=== PATIENT | male | born 1945 | race Caucasian/White ===

== ENCOUNTER 2023-11-28 16:46 | Emergency (ER) | payer MEDICARE, SELFPAY ==
[2023-11-28] VITALS (10 sets, daily range): BP systolic 130–153; BP diastolic 54–82; PULSE 46–61; RESP 17–23; TEMP 36.7; O2SAT 94–98
--- NOTE | ~2023-11-28 | CT_ITS ---
EXAMINATION: CT brain wo con DATE: 11/28/2023 18:02 INDICATION: trauma . TECHNIQUE: Computed tomography (CT) of the head was performed without intravenous contrast. The mA wa s adjusted according to patient size. Iterative reconstruction technique was employed. The dose-lengt h product was 681.00 mGy-cm. COMPARISON: None. FINDINGS: No acute intracranial hemorrhage or extra-axial fluid collection. No hydrocephalus, mass, or herniation. No acute ischemic infarct. Unremarkable dural venous sinus attenuation. No acute osseous abnormality. Mild ethmoid mucosal thickening, small retention cyst/polyp in the posterior right ethmoid sinus, the remaining aerated spaces are clear. Moderate atrophy and chronic white matter change. Atherosclerotic intracranial calcification. 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 Left frontal encephalomalacia. IMPRESSION: No acute intracranial process. Reviewed, dictated and finalized at location K.
--- NOTE | ~2023-11-28 | CT_ITS ---
EXAMINATION: CT cervical spine wo con DATE: 11/28/2023 18:02 INDICATION: trauma TECHNIQUE: Computed tomography (CT) of the cervical spine was performed without intravenous contrast. Automated exposure control and iterative reconstruction technique were employed. The dose-length pro duct was 681.00 mGy-cm. COMPARISON: None. FINDINGS: Vertebral Body Alignment: Intact. Craniocervical and atlantoaxial alignment: Moderate degenerative change. Alignment intact. Osseous structures/fracture: No evidence of a lytic or blastic process in the visualized spine. No e vidence of acute fracture. Cervical soft tissues: The paraspinal soft tissues planes are maintained. Degenerative changes: Multilevel moderate degenerative disc disease and facet arthropathy. Severe lef t neural foraminal narrowing at C5-6 secondary to degenerative disc, uncovertebral joint, and facet c hange. No severe central canal narrowing. IMPRESSION: No acute fracture or traumatic malalignment in the cervical spine. Reviewed, dictated and finalized at location K.
--- NOTE | ~2023-11-28 | XR_ITS ---
EXAMINATION: XR chest 2V Exam Date/Time: 11/28/2023 17:17 CDT HISTORY: congestion, sob Comparison: None. RESULT: Lines, tubes, and devices: None. Lungs and pleura: Mild diffuse reticular opacities, indistinct vessels, and mild cuffing. Minimal st reaky bibasilar atelectasis/scar. Cardiomediastinal silhouette: Stable. Other: No acute osseous or upper abdominal finding. IMPRESSION: Pulmonary opacities may represent mild interstitial edema versus respiratory bronchiolitis. Reviewed, dictated and finalized at location K. IMPRESSION: Pulmonary opacities may represent mild interstitial edema versus respiratory br onchiolitis.
--- NOTE | ~2023-11-28 | CT_ITS ---
EXAMINATION: CT chst ab pel anca marie w DATE: 11/28/2023 22:34 INDICATION: Trauma. Fall. TECHNIQUE: Computed tomography (CT) of the chest, abdomen, pelvis, thoracic spine and lumber spine wa s performed with 100 mL Omnipaque-350 intravenous contrast. Automated exposure control and iterative reconstruction technique were employed. The dose-length product was 1547.82 mGy-cm. COMPARISON: None FINDINGS: CHEST: No thoracic aortic injury. Moderate atherosclerotic calcified and noncalcified aortic plaque. No mediastinal hematoma. No pericardial effusion. Heavy coronary artery calcification. No acute lung injury. No pleural effusion or pneumothorax. ABDOMEN/PELVIS: No solid organ injury. Bilateral renal cortical thinning and scarring. Simple left lower pole cyst. N onobstructing punctate renal calcifications. No evidence of bowel or mesenteric injury. Diverticulosis without vasculitis. No free fluid or free air. No retroperitoneal hematoma. Pelvic contents are atraumatic. Prostatomegaly. MUSCULOSKELETAL (excluding spine): Portions of the left abdominal wall soft tissues are excluded from the [id number]-ykpo. No acute osseou s fracture. Possible fracture of the left lateral ninth costochondral cartilage. Small uncomplicated fat-containing umbilical and left inguinal hernias. THORACIC SPINE: Thoracic scoliosis. No fracture or traumatic malalignment of the thoracic spine. No severe central ca nal or neural foraminal narrowing. Exaggerated thoracic kyphosis. Multilevel degenerative disc diseas e. Multilevel bridging anterior osteophytes. LUMBAR SPINE: No fracture or traumatic malalignment of the lumbar spine. No severe central canal or neural foramina l narrowing. Multilevel degenerative disc disease and facet arthropathy. IMPRESSION: Possible fracture of the left lateral ninth costochondral cartilage, correlate for pain/tenderness. Otherwise, no acute process detected in the chest, abdomen, pelvis, thoracic spine, or lumbar spine. Reviewed, dictated and finalized at location K. IMPRESSION: Possible fracture of the left lateral ninth costochondral cartilage, correlate for pain/tenderness. Otherwise, no acute process detected in the chest, abdomen, pelvis, thoracic sp ine, or lumbar spine.
--- NOTE | ~2023-11-28 | XR_ITS ---
EXAM: XR pelvis 1-2V DATE: 11/28/2023 17:52 HISTORY: fall . COMPARISON: None available. FINDINGS: Normal mineralization. No fracture or dislocation. No lytic or blastic lesion. Lumbar dege nerative disc disease. Mild bilateral hip osteoarthritis. No erosion or periosteal change. Pelvic phl eboliths. Atherosclerotic calcification. IMPRESSION: No acute osseous finding in the pelvis. Reviewed, dictated and finalized at location K.
--- NOTE | 2023-11-28 17:01 | ECG_ITS ---
SEE SCANNED COPY FOR CONFIRMED REPORT MTDD
[2023-11-28 17:18] LABS: Basophils Absolute Auto 0.1 K/mm3 (0.0-0.1); Basophils Percent Auto 1.4 % (0.2-1.2); Eosinophils Absolute Auto 0.3 K/mm3 (0-0.3); Hemoglobin 12.9 g/dL (14.0-18.0); Immature Granulocyte Absolute 0.04 K/mm3 (0.00-0.031); Immature Granulocyte Percent A 0.4 % (0-0.5); Lymphocytes Absolute Auto 0.83 K/mm3 (0.9-3.2); Lymphocytes Percent Auto 9.2 % (18.3-44.2); Mean Corpuscular Volume 76.8 fl (80-100); Mean Platelet Volume 10.5 fl (7.4-10.4); Monocytes Absolute Auto 1.1 K/mm3 (0.1-0.6); Monocytes Percent Auto 11.7 % (2.6-8.5); Neutrophils Absolute Auto 6.7 K/mm3 (1.3-6.7); Neutrophils Percent Auto 74.3 % (45.5-73.1); Platelet Count Result 204 k/mm3 (150-375); Red Cell Distribution Width 18.7 % (11.5-14.5)
[2023-11-28 17:33] LABS: Alanine Aminotransferase 15 U/L (6-50); Albumin Level 4.1 g/dL (3.5-5.1); Alkaline Phosphatase 86 U/L (38-126); Anion Gap 8 mmol/L (4-12); Aspartate Amino Transferase 18 U/L (17-59); Bilirubin,Total 0.5 mg/dL (0.2-1.3); Blood Urea Nitrogen 33 mg/dL (9-20); Calcium 8.4 mg/dL (8.4-10.2); Carbon Dioxide 22 mmol/L (22-30); Chloride 109 mmol/L (98-107); Estimated CRCL calculation 41 ml/min; Estimated Glomerular Filt Rate 45; Glucose 127 mg/dL (65-110); Potassium 4.2 mmol/L (3.4-5.0); Sodium 139 mmol/L (137-145)
--- NOTE | 2023-11-28 17:57 | ED.FALL ---
HPI - Fall General Chief Complaint: Fall Stated Complaint: fall Time Seen by Provider: 11/28/23 17:07 History of Present Illness HPI Narrative: Patient is a 78-year-old male with history of dementia here after a fall. The family notes that he has been having some nasal congestion over the last 3 days. Yesterday and today he had a couple episodes of urinary incontinence which is abnormal for him. They noted some increased shortness of breath over the last couple of days as well. Today he was up trying to ambulate back from the bathroom when he lost his balance and fell backwards hitting his head on the bathroom door which made a hole in the door. EMS was called he was brought into the emergency department for further evaluation. Patient currently complaining of some mid back pain but otherwise has no complaints. Related Data Allergies Allergy/AdvReac Type Severity Reaction Status Date / Time ciprofloxacin Allergy Rash Verified 11/28/23 17:00 Review of Systems Review of Systems: All systems reviewed & are unremarkable except as noted in HPI and below Exam Narrative: GENERAL: Well-appearing, well-nourished, and in no acute distress. HEAD: Normocephalic, atraumatic. No obvious abrasion or laceration. EYES: PERRLA and EOMI. ENT: Nares clear. Mucous membranes moist. NECK: Supple. CHEST: Clear to auscultation. No respiratory distress. HEART: Regular rate and rhythm. Normal peripheral pulses. ABDOMEN: Soft, nontender, nondistended. Bilateral CVA tenderness EXTREMITIES: Normal range of motion. No edema. Midline thoracic and lumbar tenderness with no bony step-offs appreciated. Paraspinal tenderness present. SKIN: Warm, dry, no rash. NEURO: No focal deficits. Alert and oriented x2. PSYCH: Normal mood and affect. Course Course Emergency Course: Chart review performed. Patient here via EMS. He has reportedly been congested for a few days and has had labored breathing. He has also been incontinent twice. He was brought into the ER after falling and hitting his head. Triage vitals show bradycardia, otherwise normal. Patient seen evaluated, nontoxic appearing. He is here with some respiratory symptoms as well as urinary continence and a fall today. 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 Son at bedside helps with history. He appears to be in no respiratory distress with normal vital signs at this time. Differentials include viral respiratory illness, pneumonia, UTI. Will additionally do imaging to evaluate for possible traumatic injury. Patient and family agreeable to workup and plan. CBC unremarkable, he has a creatinine of 1.5, we have no priors in our system for comparison. He did look clinically dry on exam, IVF ordered. Troponin normal. UA negative for UTI, does have some hematuria. CXR shows pulmonary opacities consistent with mild interstitial edema vs respiratory bronchiolitis. Head CT negative. XR pelvis negative. CT cervical spine negative. CT chest, abdomen pelvis and thoracolumbar ordered. Patient not sitting still during CT, will attempt to medicate and send back down. Patient sent back down after zyprexa, continues to have difficulty sitting still, will give ativan. CT shows possible fracture of the left lateral 9th costochondral cartilage, correlate for pain and tenderness. He is mildly tender in this area. Suspect this is likely the cause. No solid organ injury appreciated on CT. Will work on discharge. The results of pertinent diagnostic studies and exam findings were discussed. The patient?s provisional diagnosis and plan of care were discussed with the patient and present family. The patient and/or present family expressed understanding of the diagnosis and plan. The nurse was instructed to provide written instructions and appropriate follow-up information. The patient understands their need and responsibility to obtain additional follow-up as instructed. The risks of medications administered and prescr
[2023-11-28 18:10] LABS: Troponin I < 0.012 ng/mL (0.000-0.034)
[2023-11-28 18:46] LABS: Appearance Urine Clear (Clear); Bacteria Urine None Seen /hpf; Bilirubin Urine Negative (Negative); Blood Urine 1+ (Negative); Color Urine Yellow (Yellow); Glucose Urine UA Negative (Negative); Ketones Urine Negative (Negative); Leukocyte Esterase Ur Negative LEU/UL (Negative); Need Manual Microscopic Reviewed; Nitrate Urine Negative (Negative); Non Pathogenic Casts 0-2; Protein Urine 1+ mg/dL (Negative); RBC Urine 21-50 /hpf (0-2); Specific Grav Ur 1.025 (1.001-1.035); Squamous Epithelial Cell Urine None Seen /hpf (Few); Urobilinogen Urine 0.2 mg/dL (<2.0); WBC Urine 0-5 /hpf (0-3); pH Urine 5.5 (5.0-9.0)
[2023-11-28 18:55] LABS: Add Urine Microscopic? YES
[2023-11-28] MEDS: LACTATED RINGERS 1,000 ML 999 ML IV CONT (19:06)
[2023-11-28 19:25] LABS: Influenza A QL RT-PCR Negative (Negative); Influenza B QL RT-PCR Negative (Negative); RSV RNA, RT-PCR Negative (Negative); SARS-CoV-2 RNA PCR Negative (Negative)
--- NOTE | 2023-11-28 19:35 | PC.NURSE ---
This RN assumed care of pt after receiving report from SUE Kohler @ [id number].
--- NOTE | 2023-11-28 19:48 | PC.NURSE ---
Pt received straight cath by patricia Del Castillo prior to this RN's arrival. Order placed just now.
[2023-11-28 20:56] LABS: Troponin I < 0.012 ng/mL (0.000-0.034)
--- NOTE | 2023-11-28 21:00 | PC.NURSE ---
Patient uncooperative during CT. Pt was asked multiple times to lie down during scan. Pt refused and continuously tried to get up from table. ED charge notified.
[2023-11-28] MEDS: OLANZapine DISPERTAB 5 MG PO (21:38)
[2023-11-28] MEDS: LORazepam INJ (*CRX) 2 MG/ML VIAL 1 MG IV PUSH (22:08)
--- NOTE | 2023-11-28 22:08 | PC.NURSE ---
Unable to scan ativan d/t pt in ct at time of admin. Pt was uncooperative with scan and needed additional medication to obtain scan.
== END 2023-11-28 23:25 | disposition home or self-care (01) ==
PROVIDERS: Emergency Medicine; Emergency Provider Student in an Organized Health Care Education/Training Program
DX: S20.212A Contusion of left front wall of thorax, initial encounter (principal); J06.9 Acute upper respiratory infection, unspecified; Z20.822 Contact with and (suspected) exposure to COVID-19; R91.8 Other nonspecific abnormal finding of lung field; G20.C Parkinsonism, unspecified; F02.80 Dementia in other diseases classified elsewhere, unspecified severity, without behavioral disturbance, psychotic disturbance, mood disturbance, and anxiety; W01.198A Fall on same level from slipping, tripping and stumbling with subsequent striking against other object, initial encounter
CPT/HCPCS: 36415; 70450; 71046; 71260; 72125; 72129; 72132; 72170; 74177; 80053; 81001; 84484; 85025; 87637; 93005; 96361; 96374; 99284; A9270; J2060; J7120; Q9967

== ENCOUNTER 2024-04-12 21:18 | Emergency (ER) | payer MEDICARE, SELFPAY ==
--- NOTE | ~2024-04-12 | XR_ITS ---
XR forearm LT 2V Ordering provider: Araseli Velasco PA-C History: . fall, area of bruising . Comparison: None. FINDINGS: BONES: No acute fracture or dislocation. JOINT SPACES: Normal. Osteoarthritic changes in the wrist area is noted. SOFT TISSUES: Soft tissue swelling is seen in the area of the proximal ulna suggestive of a hematoma. Clinical correlation advised. IMPRESSION: No acute osseous abnormality left forearm. Reviewed, dictated and finalized at location A.
--- NOTE | ~2024-04-12 | CT_ITS ---
CT brain wo con Ordering provider: Araseli Velasco PA-C History: 78 years Male with . fall, HI, on xarelto . Comparison: None. Technique: CT of the head without contrast. Radiation reduction technique utilized The dose-length product was 378.33 mGy-cm. FINDINGS: BRAIN PARENCHYMA AND CSF SPACES: Mild leukoaraiosis and diffuse cortical atrophy. Mild atheromatous d isease. 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 No midline shift, mass effect or hemorrhage. The brain parenchyma and CSF spaces are otherwise normal. VISUALIZED PARANASAL SINUSES: Well aerated. MASTOIDS: Well aerated. BONES: The bones appear intact. SOFT TISSUES: Visualized nasopharynx is normal. Superficial soft tissues are normal. IMPRESSION: No acute intracranial findings. Reviewed, dictated and finalized at location A.
--- NOTE | ~2024-04-12 | CT_ITS ---
CT thoracic lumbar wo con Ordering provider: Araseli Velasco PA-C History: . fall, pain . Comparison: None. Technique: CT thoracic and lumbar spine without contrast. Automated exposure control and iterative r econstruction technique were employed. The dose-length product was 1696.70 mGy-cm. FINDINGS: VERTEBRAE: Fracture of the right transverse process of L3 and L4 which is most likely chronic. Normal height and alignment. No subluxation or visible acute fracture. Degenerative changes of the spine. DISC SPACES: Multilevel narrowing in the mid and lower thoracic area. Narrowing of the disc spaces L1-L2, L2-3 and L3-L4.. PARASPINOUS SOFT TISSUES: Normal. Bilateral sacroiliitis. IMPRESSION: No definite acute osseous abnormality of the thoracic and lumbar spine. Fractures in the right transverse processes of L3 and L4 which is most likely chronic. Clinical corre lation for tenderness advised. Reviewed, dictated and finalized at location A. IMPRESSION: No definite acute osseous abnormality of the thoracic and lumbar spine. Fractures in the right transverse processes of L3 and L4 which is most likely c hronic. Clinical correlation for tenderness advised.
--- NOTE | ~2024-04-12 | CT_ITS ---
CT cervical spine wo con Ordering provider: Araseli Velasco PA-C History: . fall, hi . Comparison: None. Technique: CT of the cervical spine was performed without contrast. Sagittal and coronal reformatted images were also obtained and reviewed. Automated exposure control and iterative reconstruction mone hnique were employed. The dose-length product was 262.70 mGy-cm. FINDINGS: VERTEBRAE: No subluxation or acute fracture. The occipital condyles are intact. Slight loss of heigh t anteriorly seen in T1 may be acute or chronic. If clinically warranted MRI is advised.. DISC SPACES: Narrowing of the disc C3-C4, C4-C5, C5-C6 and C6-C7. Multilevel facet joint disease. Mul tilevel uncovertebral joint osteoarthritic changes. PARASPINOUS SOFT TISSUES: Normal. IMPRESSION: No definite acute osseous abnormality cervical spine. Reviewed, dictated and finalized at location A.
[2024-04-12 21:21] VITALS: BP 179/80; PULSE 35; RESP 16; TEMP 36.4; O2SAT 99
--- NOTE | 2024-04-12 21:49 | ECG_ITS ---
Test Date: 2024-04-12 22:01:04 Measurements Intervals Thornton Rate: 56 P: 0 MA: 0 QRS: -39 QRSD: 116 T: 78 QT: 447 QTc: 433 Interpretive Statements ATRIAL FIBRILLATION WITH SLOW VENTRICULAR RESPONSE WITH ABERRANT CONDUCTION OR VENTRICULAR PREMATURE COMPLEXES MARKED LEFT AXIS DEVIATION [QRS AXIS < -30] INCOMPLETE RIGHT BUNDLE BRANCH BLOCK [90+ ms QRS DURATION, TERMINAL R IN V1/V2, 40+ ms S IN I/aVL/V4/V5/V6] MINIMAL VOLTAGE CRITERIA FOR LVH, CONSIDER NORMAL VARIANT [MEETS CRITERIA IN ONE OF: R(aVL), S(V1), R(V5), R(V5/V6)+S(V1)] POSSIBLE ANTERIOR MYOCARDIAL INFARCTION , OF INDETERMINATE AGE [30 ms Q WAVE IN V3/V4, OR R < 0.2 mV IN V4] No previous ECG available for comparison Electronically Signed On 04-13-2024 08:31:40 CDT by Brian Chen M.D.
[2024-04-12 21:53] VITALS: BP 150/75; PULSE 55; RESP 13; TEMP 36.6; O2SAT 98
[2024-04-12] MEDS: ACETAMINOPHEN 500 MG TABLET 1000 MG PO (22:41)
[2024-04-12] MEDS: LIDOCAINE 5% PATCH 1 PATCH TRANSDERM (22:41)
--- NOTE | 2024-04-13 00:02 | ED_ITS ---
HPI - Fall General Chief Complaint: Fall Stated Complaint: fall, back pain Time Seen by Provider: 04/12/24 21:48 Source: patient and family Mode of arrival: ambulatory Limitations: dementia History of Present Illness HPI Narrative: Patient is a 78-year-old male, with past medical history of parkinsonian disease dementia, bradycardia, AFib on Xarelto, who presents to the ED with his son with report of a fall. Son assisted in providing information. Patient was in his bedroom around 1230pm today (Monday) when he lost his balance using his walker after looking up at the TV. He then fell backwards landing on his buttocks. Son showed me a video of this. Patient did his head. Denied LOC. Denies feeling dizzy or lightheaded, states he just lost his balance. Complains of pain to his head, midback, left forearm. Denies feeling dizzy/LH currently. Denies vision changes, nausea, numbness, bowel or bladder incontinence. Related Data Allergies Allergy/AdvReac Type Severity Reaction Status Date / Time ciprofloxacin Allergy Rash Verified 11/28/23 17:00 Review of Systems Review of Systems: All systems reviewed & are unremarkable except as noted in HPI. All systems reviewed & are unremarkable except as noted in HPI and below Exam Narrative: GENERAL: Elderly, well-nourished, non-toxic, in no acute distress. HEAD: Normocephalic, atraumatic. RESPIRATORY: Airway patent, respirations nonlabored. Clear to auscultation bilaterally, no rales, rhonchi, wheezing. CARDIOVASCULAR: Regular rate and rhythm without murmurs, rubs, or gallops. Peripheral pulses are intact. ABDOMINAL: Soft, nontender, nondistended. Normoactive BS. MUSCULOSKELETAL: Moves all extremities. No gross deformities. Hematoma to L lateral proximal forearm with mild bruising present. Focal TTP. No significant bony tenderness throughout L arm/elbow/wrist. TTP in mid thoracic region, midline spine and paraspinal musculature. No palpable bony deformities or step offs. No significant tenderness throughout cervical or lumbar midline spine. SKIN: Warm, dry, normal color. Small skin tear to L hand. NEURO: Alert, intermittent confusion. Speech clear. Cranial nerves II-XII luana ssly intact. No ataxic movements. PSYCHIATRIC: Appropriate mood and affect. Normal interaction. Course Vital Signs Vital signs: Vital Signs Temperature 97.6 F 04/12/24 21:21 Pulse Rate 35 L 04/12/24 21:21 Respiratory Rate 16 04/12/24 21:21 Blood Pressure 179/80 H 04/12/24 21:21 Pulse Oximetry 99 04/12/24 21:21 Oxygen Delivery Room Air 04/12/24 21:21 Temperature 97.9 F 04/12/24 21:53 Pulse Rate 54 L 04/13/24 00:44 Respiratory Rate 18 04/13/24 00:44 Blood Pressure 146/94 H 04/13/24 00:44 Pulse Oximetry 98 04/13/24 00:44 Oxygen Delivery Room Air 04/12/24 21:53 MDM - Fall MDM Narrative Medical decision making narrative: Patient presented to ED status post ground level mechanical fall that occurred this afternoon. Son showed me a video of this fall occurring. No prodromal symptoms prior to fall. Complaining of pain to left forearm, thoracic region. HI, no LOC. He is Xarelto. Neurovascularly intact. No focal deficits. No evidence of cord compression or cauda equina. No gross deformities. Son does report patient has been at his neurologic baseline throughout the day. CT brain and cervical spine without acute acute traumatic findings. CT scan of thoracic/lumbar spine was obtained and without obvious acute abnormality. Did show possible chronic fractures of transverse process of L3 and L4. Recommended to correlate for point tenderness. Patient really does not have any tenderness throughout lumbar spine. I have low suspicion for acute fracture in this region. X-ray of L forearm is also without traumatic findings. Does show hematoma. Enrrique wrap applied. Patient and son updated on imaging results. Will discharge patient with short course of pain medicine for home use as well as lidocaine patches. Advised to continue Tylenol. Recommended close follow-up with PCP. Given strict return precautions. Patient and son in agreement plan. Son feels comfortable taking patient home. D/C in stable condition. Patient was noted to be bradycardic here. EKG was obtained and w/o concerning ST changes or evidence of heart block. Son does report this is a chronic known issue. Appears similar to patient's previous records in the ED. Patient is no longer on beta blockers. Medical Records Attestation: I reviewed the patient's medical records. Imaging Data Attestation: I personally reviewed and interpreted this imaging study as follows: Radiologist's impression: ITS Impressions Head CT 04/12/24 22:47 IMPRESSION: No acute intracranial findings. Cervical Spine CT 04/12/24 22:55 IMPRESSION: No definite acute osseous abnormality cervical spine. Thoracic/Lumbar Spine CT 04/12/24 23:04 IMPRESSION: No definite acute osseous abnormality of the thoracic and lumbar spine. Fractures in the right transverse processes of L3 and L4 which is most likely chronic. Clinical correlation for tenderness advised. Forearm X-Ray 04/12/24 23:37 IMPRESSION: No acute osseous abnormality left forearm. ECG Data EKG #1: Attestation: I personally reviewed and interpreted this ECG as follows: ECG completion date: 04/12/24 ECG completion time: 22:01 EKG Interpretation: bradycardia (56), atrial fibrillation, PVCs, non- specific ST changes and RBBB (incomplete) Discharge Plan Discharge Clinical Impression: Fall from ground level, Strain of thoracic back region Contusion of left forearm Qualifiers: Encounter type: initial encounter Qualified Code(s): S50.12XA - Contusion of left forearm, initial encounter Closed head injury Qualifiers: Encounter type: initial encounter Qualified Code(s): S09.90XA - Unspecified injury of head, initial encounter Patient Disposition: Home, Self-Care Condition: Stable Instructions: Antibiotic Form, Head Injury (ED), Thoracic Back Strain (ED) Additional Instructions: Continue Tylenol as needed for pain. You may use ice/heat, lidocaine patches to area of pain. Utilize tramadol as needed for more severe pain. Recommend ice and enrrique bandage to left forearm to help with swelling. Follow-up with your primary care doctor for further evaluation. Return to the ED if patient experiences worsening or severe pain, recurrent injury, numbness, going to the bathroom without meaning to, unable to keep down food or drink, or any other symptoms of concern. Prescriptions: New lidocaine 5 % adhesive patch,medicated 1 patch topical DAILY Qty: 15 0RF Rx Instructions: leave on most painful area for up to 12 hrs tramadol 50 mg tablet 50 mg PO Q6H PRN (Reason: pain) Qty: 15 0RF Follow-up/Referrals: Josie,Bijal Lowry MD [Primary Care Provider] - Time of Disposition: 00:15
[2024-04-13] MEDS: traMADol HCL (*CRX) 50 MG TABLET PO (00:22)
[2024-04-13 00:44] VITALS: BP 146/94; PULSE 54; RESP 18; O2SAT 98
== END 2024-04-13 00:46 | disposition home or self-care (01) ==
PROVIDERS: Emergency Provider Physician Assistant; PCP Internal Medicine Interventional Cardiology
DX: S09.90XA Unspecified injury of head, initial encounter (principal); S29.012A Strain of muscle and tendon of back wall of thorax, initial encounter; S50.12XA Contusion of left forearm, initial encounter; G20.A1 Parkinson's disease without dyskinesia, without mention of fluctuations; F02.80 Dementia in other diseases classified elsewhere, unspecified severity, without behavioral disturbance, psychotic disturbance, mood disturbance, and anxiety; I48.91 Unspecified atrial fibrillation; Z79.01 Long term (current) use of anticoagulants; R94.31 Abnormal electrocardiogram [ECG] [EKG]; M84.48XA Pathological fracture, other site, initial encounter for fracture; W18.39XA Other fall on same level, initial encounter
CPT/HCPCS: 70450; 72125; 72128; 72131; 73090; 93005; 99284; A9270

== ENCOUNTER 2024-06-15 00:09 | Emergency (ER) | payer MEDICARE, SELFPAY ==
--- NOTE | ~2024-06-15 | CT_ITS ---
EXAMINATION: CT brain wo con DATE: 06/15/2024 04:18 INDICATION: Anticoagulated patient post fall with head injury. TECHNIQUE: Computed tomography (CT) of the head was performed without intravenous contrast. Sagittal and coronal reconstructions were performed. The mA was adjusted according to patient size. Iterative reconstruction technique was employed. The dose-length product was 681.00 mGy-cm. COMPARISON: head CT dated 04/12/2024 FINDINGS: Moderate-sized region of encephalomalacia in the left frontal lobe consistent with chronic infarct. S mall old lacunar infarcts in the right frontal lobe cruz radiata and in the left thalamus. There is additional scattered white matter hypoattenuation consistent with chronic small vessel ischemic dise ase. No acute intracranial hemorrhage, acute infarction or abnormal extra axial fluid collection. Sym metric prominence of the sulci and ventricles consistent with mild age-appropriate diffuse cerebral v olume loss. Ventricles are normal and symmetric. No mass/mass effect. Mild mucosal thickening in the bilateral ethmoid sinuses. The orbits and mastoid air cells are normal. IMPRESSION: 1. No acute intracranial process. 2. Stable appearance of age-related changes and old infarcts in the bilateral frontal lobes and right thalamus. Reviewed, dictated and finalized at location A. AL THERAPIST IMPRESSION: 1. No acute intracranial process. 2. Stable appearance of age-related changes and old infarcts in the bilateral f rontal lobes and right thalamus.
--- NOTE | ~2024-06-15 | XR_ITS ---
EXAMINATION: XR elbow LT min 3V DATE: 06/15/2024 00:35 INDICATION: Large hematoma to the left elbow post fall TECHNIQUE: Anteroposterior, two oblique and lateral views of the left elbow were obtained. COMPARISON: Left forearm radiographs dated 04/12/2024 FINDINGS: Prominent soft tissue swelling posterior to the elbow and proximal forearm. Bone alignment is normal. No fracture or joint effusion. Joint spaces are normal. Vascular calcifications along the proximal t o mid forearm. IMPRESSION: 1. No osseous abnormality. Reviewed, dictated and finalized at location A. VASCULAR IMPRESSION: 1. No osseous abnormality.
[2024-06-15 00:15] VITALS: BP 140/82; PULSE 76; RESP 16; TEMP 36.6; O2SAT 100
[2024-06-15 01:49] VITALS: BP 137/68; PULSE 48; RESP 16; O2SAT 100
--- NOTE | 2024-06-15 03:29 | ED_ITS ---
HPI - General Adult General Chief complaint: Extremity Injury, Upper Stated complaint: fall; arm pain Time Seen by Provider: 06/15/24 01:20 History of Present Illness HPI narrative: Patient is a 78-year-old male who presents to the ER after sustaining a fall at home. He reports he was walking with his walker when his pain started to fall down, which made him stumble and fall backwards. Patient has a history of Parkinson's disease and has frequent falls. He reports pain on his left elbow. Patient's son reports patient is on blood thinners due to AFib. It is unclear whether or not patient hit his head during the fall. Patient denies pain anywhere else on his body. His son reports he has a history of bradycardia, for which he is followed by Cardiology. Patient is also follow-up by a neurologist at [facility] who manages his Parkinson's disease. His son reports he had COVID in July 2022, and has had many health problems since that time, but patient is followed closely by specialists and his PCP. Patient denies headache, shortness of breath, chest pain, back pain, urinary symptoms. Related Data Allergies Allergy/AdvReac Type Severity Reaction Status Date / Time ciprofloxacin Allergy Rash Verified 06/15/24 01:49 Review of Systems Review of Systems: All systems reviewed & are unremarkable except as noted in HPI and below Exam Narrative: GENERAL: Well appearing, well-nourished, non-toxic, in no acute distress. HEAD: Normocephalic, atraumatic. NECK: Supple. No adenopathy, no masses. RESPIRATORY: Airway patent, respirations nonlabored. Clear to auscultation bilaterally, no rales, rhonchi, wheezing. CARDIOVASCULAR: bradycardia, irregular rhythm (followed closely outpatient by cardiology) without murmurs, rubs, or gallops. Peripheral pulses 2+ and equal bilaterally. ABDOMINAL: Soft, nontender, nondistended, no hepatosplenomegaly. Normoactive BS. MUSCULOSKELETAL: Moves all extremities. Strength/ROM intact without gross deformities. SKIN: Warm, dry, normal color. No rashes. Golf ball-sized hematoma on pt's L elbow with no open wound. NEURO: A&O X3. Speech clear. Cranial nerves intact. PSYCHIATRIC: Appropriate mood. Flat affect. Course Vital Signs Vital signs: Vital Signs Temperature 36.6 C 06/15/24 00:15 Pulse Rate 76 06/15/24 00:15 Respiratory Rate 16 06/15/24 00:15 Blood Pressure 140/82 06/15/24 00:15 Pulse Oximetry 100 06/15/24 00:15 Oxygen Delivery Room Air 06/15/24 00:15 Temperature 36.6 C 06/15/24 00:15 Pulse Rate 48 L 06/15/24 01:49 Respiratory Rate 16 06/15/24 01:49 Blood Pressure 137/68 06/15/24 01:49 Pulse Oximetry 100 06/15/24 01:49 Oxygen Delivery Room Air 06/15/24 00:15 Medical Decision Making MDM Narrative Medical decision making narrative: Patient is a 78-year-old male who presents to the ER after sustaining a fall at home. He reports he was walking with his walker when his pain started to fall down, which made him stumble and fall backwards. Patient has a history of Parkinson's disease and has frequent falls. He reports pain on his left elbow. Patient's son reports patient is on blood thinners due to AFib. It is unclear whether or not patient hit his head during the fall. Patient denies pain anywhere else on his body. His son reports he has a history of bradycardia, for which he is followed by Cardiology. Patient is also follow-up by a neurologist at [facility] who manages his Parkinson's disease. His son reports he had COVID in July 2022, and has had many health problems since that time, but patient is followed closely by specialists and his PCP. Patient denies headache, shortness of breath, chest pain, back pain, urinary symptoms. Labs Ordered: None necessary Imaging Ordered: CT brain, XR L elbow Results: Patient's left elbow x-ray indicated no acute abnormalities. His brain CT scan indicated no abnormalities. Diagnosis: Left elbow contusion Patient Education/Shared MDM: Patient's son is very knowledgeable about his father's care and history. He is in agreement with plan for patient to have a CT scan of his brain to to his blood thinner usage. Patient's son is very familiar with his bradycardia and does not have concerns about it contributing to this ER visit. 0445- Patient's head CT scan showed chronic microvascular ischemic disease with cerebral and cerebellar atrophy. It also showed intracranial calcified atherosclerosis and L frontal lobe encephalomalacia. Remote lacunar infarct within the R thalamus. There were no indication of a brain bleed. Results shared with patient and his son. He will be discharged home with strong advice to follow-up with his primary care doctor and specialists on Monday. Patient and his son verbalized understanding and are in agreement with plan. 0500- All questions answered. Vital signs stable at time of discharge. Differential Diagnosis Differential Diagnosis: subarachnoid hemorrhage, L elbow fracture, L elbow contusion Vital Signs Vital Signs: Vital Signs Temperature 36.6 C 06/15/24 00:15 Pulse Rate 76 06/15/24 00:15 Respiratory Rate 16 06/15/24 00:15 Blood Pressure 140/82 06/15/24 00:15 Pulse Oximetry 100 06/15/24 00:15 Oxygen Delivery Room Air 06/15/24 00:15 Temperature 36.6 C 06/15/24 00:15 Pulse Rate 48 L 06/15/24 01:49 Respiratory Rate 16 06/15/24 01:49 Blood Pressure 137/68 06/15/24 01:49 Pulse Oximetry 100 06/15/24 01:49 Oxygen Delivery Room Air 06/15/24 00:15 Discharge Plan Discharge Clinical Impression: Hematoma of left elbow Patient Disposition: Home, Self-Care Condition: Stable Instructions: Antibiotic Form, Hematoma (ED) Additional Instructions: Please return to the ER with an worsening symptoms. Follow-up with primary care provider and specialists in the next 2-3 days. Take all medications as prescribed. Patient Language: Norwegian Prescriptions: No Action lidocaine 5 % adhesive patch,medicated 1 patch topical DAILY Qty: 15 0RF Rx Instructions: leave on most painful area for up to 12 hrs tramadol 50 mg tablet 50 mg PO Q6H PRN (Reason: pain) Qty: 15 0RF Follow-up/Referrals: Josie,Bijal Lowry MD [Primary Care Provider] - Time of Disposition: 04:53
[2024-06-15 05:30] VITALS: BP 120/86; PULSE 52; RESP 16; O2SAT 98
--- OUTSIDE RECORDS SUMMARY | 2024-06-18 18:02 | XMS_ITS | Encounter Summary ---
Author Organization [facility] Address [address] [place] [address] Care Team Providers Care Telecasting Technician Name Role Phone Wesley Em MD Primary Care Provider Unavail able Reason for Referral * Home Health Care (Routine) - Closed Specialty Diagnoses / Procedures Referred By Contdayami t Referred To Contact Home Health Services Diagnoses History of CVA (cerebrovascular accident) Parkinsonian features Moderate dementia with other behavioral disturbance, unspecified dementia type (HCC) Liza Morrow MD [address] [place] [address] [facility] [address] [place] [address] Referral ID Status Reason Start Date Expiration Date V isits Requested Visits Authorized [id number] Closed Specialty Services Required 04/30/2024 04/30/[phone] Encounter Details Date Type Department Care Team (Late st Contact Info) Description 04/30/2024 Orders Only [facility] [address] [place] [phone] Liza Morrow MD [address] [place] [address] History of CVA (cerebrovascular accident) ; Parkinsonian features; Moderate dementia with other behavioral disturbance, unspecified dementia type (HCC) Social History Tobacco Use Types Packs/Day Years Used Date Smoking Tobacco: Former Smokeless Tobacco: Never Alcohol Use Standard Drinks/Week Comments Not Asked 0 (1 standard drink = 0.6 oz pur e alcohol) Sex and Gender Information Value Date Recorded Sex Assigned at Not on file Gender Identity Not on file Sexual Orientation Not on file documented as of this encounter Plan of Treatment Upcoming Encounters Date Type Department Care Team (Late st Contact Info) Description 07/11/2024 10:30 AM CLERICAL SPECIALIST Office Visit [facility] [address] [place] [phone] Liza Morrow MD [address] [place] [phone] 07/16/2024 10:00 AM CLERICAL SPECIALIST Office Visit [facility] [address] [place] [phone] Shahriar Young MD [address] [place] [address] [place] [phone] Scheduled Referrals Name Type Priority Associated Diagnoses Orde r Schedule AMB REFERRAL TO HOME HEALTH CARE Outpatient Referral Routine History of CVA (cerebrovascular accident) Parkinsonian features Moderate dementia with other behavioral disturbance, unspecified dementia type (HCC) Ordered: 04/30/2024 documented as of this encounter Visit Diagnoses Diagnosis History of CVA (cerebrovascular accident)- Primary Transient ischemic attack (TIA), and cerebral infarction without residual deficits Parkinsonian features Abnormal involuntary movements Moderate dementia with other behavioral disturbance, unspecified dementia type (HCC) documented in this encounter Care Teams Telecasting Technician Relationship Specialty Start Date End Date Wesley Em MD PCP - General Internal Medicine 09/20/12 documented as of this encounter
--- OUTSIDE RECORDS SUMMARY | 2024-06-18 18:02 | XMS_ITS | Encounter Summary ---
Author Organization [facility] Address [address] [place] [address] Care Team Providers Care Landscaping Crew Leader Name Role Phone Wesley Em MD Primary Care Provider Unavail able Reason for Visit * Reason Comments Follow-up 6 mo Encounter Details Date Type Department Care Team (Late st Contact Info) Description 05/24/2016 3:00 PM WEB CONTENT WRITER Office Visit [facility] [employer] [facility] [address] [facility] [address] [place] [address] [place] [phone] [facility] [address] [place], [place] [id number] CAD in [place] artery (Primary Dx); Dyslipidemia; Essential hypertension, benign; Stented coronary artery Social History Tobacco Use Types Packs/Day Years Used Date Smoking Tobacco: Former Alcohol Use Standard Drinks/Week Comments Not Asked 0 (1 standard drink = 0.6 oz pur e alcohol) Sex and Gender Information Value Date Recorded Sex Assigned at Not on file Gender Identity Not on file Sexual Orientation Not on file documented as of this encounter Last Filed Vital Signs Vital Sign Reading Time Taken Comments Blood Pressure 154/84 05/24/2016 3:07 PM WEB CONTENT WRITER Pulse 75 05/24/2016 3:07 PM WEB CONTENT WRITER Temperature - - Respiratory Rate 15 05/24/2016 3:07 PM WEB CONTENT WRITER Oxygen Saturation - - Inhaled Oxygen Concentration - - Weight 88.5 kg (195 lb 3.2 oz) 05/24/2016 3:07 P M WEB CONTENT WRITER Height 175.3 cm (5' 9 ) 05/24/2016 3:07 PM WEB CONTENT WRITER Body Mass Index 28.83 05/24/2016 3:07 PM WEB CONTENT WRITER documented in this encounter Progress Notes * Garth Millan MD - 05/24/2016 3:31 PM CST Cardiology Follow up Visit PCP: Wesley Em MD SUBJECTIVE: [place] comes today for follow up visit. Current diagnoses include hypertension, hyperlipidemia, 2-V CAD, PCI to CFX 08/15 for abnormal stress test, staged roto/stent RCA 09/12, DM, and Polycythemia Vera. Since last visit he has done well without angina, dyspnea. He is physically active, able to carry out his daily activities without difficulty. Family and Social History/Risk Factors: Premature CAD: Yes Records reviewed: Current medications, allergies, and Problem List reviewed and updated as needed Tobacco Use: Past Medication side effects noted: none. REVIEW OF SYSTEMS: General ROS: negative Psychological ROS: negative ENT ROS: negative Hematological and Lymphatic ROS: negative Endocrine ROS: negative Respiratory ROS: no cough, shortness of breath, or wheezing Cardiovascular ROS: no chest pain or dyspnea on exertion Gastrointestinal ROS: no abdominal pain, change in bowel habits, or black or bloody stools Musculoskeletal ROS: negative Neurological ROS: no TIA or stroke symptoms Dermatological ROS: negative PHYSICAL EXAM: BP 154/84 (BP SITE: LEFT ARM, BP POSITION: SITTING, BP CUFF SIZE: Large Adult) Pulse 75 Resp 15 Wt 88.5 kg (195 lb 3.2 oz) BMI 28.83 kg/m2 General appearance: alert, cooperative, no distress Head: normocephalic, without trauma Eyes: sclera and conjunctiva clear, EOMI and PERRLA, lids normal Neck: range of motion is intact, no masses, thyroid not enlarged, no adenopathy Lungs: breath sounds normal and symmetric; no rales or wheezes Heart: regular rhythm, normal S1 and S2, without murmurs, gallops or rubs Abdomen: soft without mass, non-tender, with normal bowel sounds Extremities: no clubbing, cyanosis or edema Circulation: Carotid, femoral and pedal pulses are intact and symmetrical, aorta is not enlarged, no carotid bruits Skin: no rashes or other abnormalities are noted Neurologic: mental status normal; alert and oriented X 3; cranial nerves II - XII are grossly intact CARDIOGRAPHICS: Stress test 11/15: Conclusion: Mild fixed thinning posterior inferior wall. No reversible ischemia. No other perfusion abnormality identified. Left ventricular ejection fraction 48%. There is mild global hypokinesis most marked at the posterior wall. PCI 09/12: CONCLUSION: 1. Successful percutaneous coronary intervention, rotational atherectomy, and implantation of a 3.0 x 26 mm Resolute drug-eluting stent in the proximal right coronary artery. 2. Successful percutaneous vascular access closure. No results for input(s): CHOL, TRIG, HDL, LDLCALC in the last 24902 hours. ASSESSMENT/PLAN: 1. CAD: doing well post PCI. Will continue current regimen. 2. Hypertension: usually well controlled 3. Dyslipidemia: followed by Dr Em. 4. DM 5. Polycythemia Vera. 6. Follow up in 6 months. Garth Millan MD 05/24/2016 3:31 PM CONTENT WRITER documented in this encounter Plan of Treatment Upcoming Encounters Date Type Department Care Team (Late st Contact Info) Description 07/11/2024 10:30 AM WEB CONTENT WRITER Office Visit [facility] [address] [place] [phone] Liza Morrow MD [address] [place] [phone] 07/16/2024 10:00 AM WEB CONTENT WRITER Office Visit [facility] [address] [place] [phone] Shahriar Young MD [address] [place] [address] [place] [phone] documented as of this encounter Visit Diagnoses Diagnosis CAD in [place] artery- Primary Coronary atherosclerosis of [place] coronary artery Dyslipidemia Other and unspecified hyperlipidemia Essential hypertension, benign Stented coronary artery Postsurgical percutaneous transluminal coronary angioplasty status documented in this encounter Care Teams Landscaping Crew Leader Relationship Specialty Start Date End Date Wesley Em MD PCP - General Internal Medicine 09/20/12 documented as of this encounter
--- OUTSIDE RECORDS SUMMARY | 2024-06-18 18:02 | XMS_ITS | Encounter Summary ---
Author Organization [facility] Address [address] [address] Care Team Providers Care Peanut Cleaner Name Role Phone Wesley Em MD Primary Care Provider Unavail able Reason for Visit * Reason Comments Follow-up 6 month Coronary Artery Disease Encounter Details Date Type Department Care Team (Late st Contact Info) Description 05/30/2017 1:30 PM BUSINESS DEVELOPMENT 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 Office Visit [facility] [address] [facility] [address] [place] [address] Fariba Koenig, LINEN TECH-CONSULTANT IN ERGONOMICS AND SAFETY [address] [facility] [address] [place] [address] CAD in ewiiaapaayp artery (Primary Dx); Essential hypertension, benign; Dyslipidemia Social History Tobacco Use Types Packs/Day Years [...] Sign Reading Time Taken Comments Blood Pressure 134/67 05/30/2017 1:39 PM BUSINESS DEVELOPMENT 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 Pulse 68 05/30/2017 1:39 PM BUSINESS DEVELOPMENT 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 Temperature - - Respiratory Rate 16 05/30/2017 1:39 PM BUSINESS DEVELOPMENT 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 Oxygen Saturation - - Inhaled Oxygen Concentration - - Weight 86.2 kg (190 lb) 05/30/2017 1:39 PM BUSINESS DEVELOPMENT 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 Height 175.3 cm (5' 9 ) 05/30/2017 1:39 PM BUSINESS DEVELOPMENT 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 Body Mass Index 28.06 05/30/2017 1:39 PM BUSINESS DEVELOPMENT 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 documented in this encounter Patient Instructions * Patient Instructions* KoenigFariba APRN-CNP - 05/30/2017 2:04 PM BUSINESS DEVELOPMENT 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 Continue current medical therapy Increase activity level Follow a low cholesterol, low sodium, small portion diet NESS DEVELOPMENT 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 documented in this encounter Progress Notes * Fariba Koenig APRN-CNP - 05/30/2017 1:55 PM CST [facility] Heart Cardiology Progress Note Patient's Primary Care Physician: Wesley Em MD Primary Registered Route Associate: Garth Millan MD, [facility] Chief Complaint Patient presents with ??? Follow-up 6 month ??? Coronary Artery Disease History of Present Illness: Mr. Zuniga is a pleasant 71 year old gentleman who presents to the clinic this afternoon for 6 month follow up. His past medical history significant for; hypertension, hyperlipidemia, 2-V CAD, PCI to CFX 08/15 for abnormal stress test, staged roto/stent RCA 09/12, DM, and Polycythemia Vera. Since his last visit he has been doing well. He denies any CP, SOB, palpitations, orthopnea, PND, light headedness, or edema. He remains somewhat active with doing paperboard box maker and yard work without any limitations. He denies any no or concerning symptoms since he was last seen. ROS as noted above with the remainder of systems negative. Past Medical History: Past Medical History: Diagnosis Date ??? BPH (benign prostatic hyperplasia) ??? CAD (coronary artery disease) ??? DM (diabetes mellitus) ??? Dyslipidemia ??? Hypertension Current Outpatient Prescriptions Medication Sig Dispense Refill ??? potassium citrate (UROCIT K 10) 10 MEQ (1080 MG) tablet ??? atorvastatin (LIPITOR) 40 MG tablet Take 1 Tab by mouth at bedtime ??? spironolactone (ALDACTONE) 25 MG tablet Take 1 Tab by mouth once daily. 30 Tab 11 ??? clopidogrel (PLAVIX) 75 MG tablet Take 1 Tab by mouth once daily. 30 Tab 11 ??? aspirin 81 MG tablet Take 81 mg by mouth once daily. ??? cloNIDine (CATAPRES) 0.2 MG tablet Take 0.2 mg by mouth 2 times daily. ??? finasteride (PROSCAR) 5 MG tablet Take 5 mg by mouth once daily. ??? tamsulosin CR 24hr (FLOMAX) 0.4 MG capsule Take 0.4 mg by mouth once daily. Take 30 minutes after a meal at the same time each day. ??? metoprolol succinate XL 24hr (TOPROL XL) 25 MG tablet Take 25 mg by mouth 2 times daily. ??? omeprazole (PRILOSEC) 20 MG capsule Take 20 mg by mouth 2 times daily before meals. ??? B Aupxmit-Z-Qvfnt Acid (STRESS FORMULA PO) Take by mouth 2 times daily. No current facility-administered medications for this visit. Allergies Allergen Reactions ??? Ciprofloxacin Physical exam: Vitals: 05/30/17 1339 BP: 134/67 Pulse: 68 Resp: 16 Weight: 86.2 kg (190 lb) Height: 175.3 cm (5' 9 ) Wt Readings from Last 3 Encounters: 05/30/17 86.2 kg (190 lb) 11/22/16 83.5 kg (184 lb) 05/24/16 88.5 kg (195 lb 3.2 oz) Constitutional: Awake, alert and oriented x3. Appears in no apparent distress. HEENT: Head is normocephalic and held midline. Pupils are equal bilaterally. Lids and globes symmetrical. Conjunctiva moist and pink bilaterally. Oral mucosa moist and pink. Hearing normal. Neck: Supple with trachea midline. No JVD. Respiratory: Respirations easy and unlabored at rest. Chest rises and falls symmetrically. Breath sounds clear anterior posterior bilaterally. No rales, rhonchi, or wheezing. Cardiac: Normal S1, S2. No S3, S4. No murmur. No heaves, lifts or thrills. Regular rate and rhythm. Vascular: Carotid upstrokes 2+ bilaterally without bruits. Radial pulses 2+ bilaterally. Abdominal aorta is without pulsation or bruit. Posterior tibial pulses 2+ bilaterally. Abdomen: Soft and non tender. Normoactive bowel tones all 4 quadrants. No hepatosplenomegaly noted. Extremities: Warm and pink. No clubbing, cyanosis or edema. Skin: Warm, dry and pink without rashes or lesions on exposed skin surfaces. No stasis dermatitis. Musculoskeletal: strength 5/5 upper and lower extremities. Gait is strong and steady. Psychiatric: Pleasant cooperative. Appropriate mood and affect. Data: No results for input(s): WBC, HGB, HCT, PLTCOUNT in the last 37945 hours. No results for input(s): SODIUM, POTASSIUM, BUN, CREATININE, GLUCOSE in the last 64834 hours. No results for input(s): BNP in the last 71516 hours. No results for input(s): MAGMGDL in the last 28144 hours. No results for input(s): LDLCALC, HDL, TRIG in the last 44100 hours. No results for input(s): TSH in the last 25232 hours. Stress test 11/22/16: Mild fixed thinning posterior inferior wall. No reversible ischemia. No other perfusion abnormality identified. Left ventricular ejection fraction 48%. There is mild global hypokinesis most marked at the posterior wall. Coronary angiogram/PCI 09/12: 1. Successful percutaneous coronary intervention, rotational atherectomy, and implantation of a 3.0x 26 mm Resolute drug-eluting stent in the proximal right coronary artery. 2. Successful percutaneous vascular access closure. Assessment/Plan 1. CAD S/p PCI No angina Continue current medical therapy Increase activity level Maintain a low-sodium, low-cholesterol, and small portion diet 2. Hypertension Currently stable Continue current medical therapy 3. Hyperlipidemia Followed by PCP, Dr. Em 4. Polycythemia vera Followed by Dr. Em Follow-up in [address] Millan, or sooner if develops no progressive symptoms. Patient agrees with the above stated plan. All questions were answered. Thank you for asking [facility] Heart and Vascular to participate in the care of your patient. Please callmy office at [phone] with any questions or concerns. Fariba Koenig APRN-CONSULTANT IN ERGONOMICS AND SAFETY. No orders of the defined types were placed in this encounter. NESS DEVELOPMENT 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 documented in this encounter Plan of Treatment Upcoming Encounters Date Type Department Care Team (Late st Contact Info) Description 07/11/2024 10:30 AM BUSINESS DEVELOPMENT 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 Office Visit [facility] - Geriatrics [address] [place] [address], [place] [address] Liza Morrow MD [address] [place] [phone] 07/16/2024 10:00 AM BUSINESS DEVELOPMENT 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 Office Visit [facility] - Ophthalmology [address] [place] [phone] Shahriar Young MD [address] [place] [address] [place] [address] documented as of this encounter Visit Diagnoses Diagnosis CAD in ewiiaapaayp artery- Primary Coronary atherosclerosis of ewiiaapaayp coronary artery Essential hypertension, benign Dyslipidemia Other and unspecified hyperlipidemia documented in this encounter Care Teams Peanut Cleaner Relationship Specialty Start Date End Date Wesley Em MD PCP - General Internal Medicine 09/20/12 documented as of this encounter
--- OUTSIDE RECORDS SUMMARY | 2024-06-18 18:02 | XMS_ITS | Encounter Summary ---
Author Organization [facility] Address [address] [place] [address] Care Team Providers Care Rib Builder Name Role Phone Wesley Em MD Primary Care Provider Unavail able Reason for Referral * Radiology Services (Routine) - Closed Specialty Diagnoses / Procedures Referred By Contac t Referred To Contact Diagnoses Atherosclerosis of augustine coronary artery of augustine heart with angina pectoris (HCC) Procedures NM MYOCARD PERFUSION [place]PECT [place] [address] [place] [id number] Referral ID Status Reason Start Date Expiration Date Visits Re quested Visits Authorized [id number] Closed 11/23/2015 05/21/2016 1 1 Reason for Visit * Cardiac (Routine) - Closed Specialty Diagnoses / Procedures Referred By Contac t Referred To Contact Radiology Diagnoses CAD in augustine artery Stented coronary artery Dyslipidemia Essential hypertension, benign Procedures STRESS TEST LEXISCAN (NUCLEAR) [place] [address] [place] [address] [facility] [address] [facility], [address] [place] [address] Referral ID Status Reason Start Date Expiration Date Visits Re quested Visits Authorized [id number] Closed 11/18/2015 05/16/2016 2 2 Encounter Details Date Type Department Care Team (Latest Contact Info) Description 11/23/2015 9:34 AM CDT - 11/23/2015 9:37 AM CDT Hospital Encounter [facility] - Nuclear Medicine [address] [place] [address] [place] [address] [facility] [address] [place] [address] Discharge Disposition: Home or Self Care Social History Tobacco Use Types Packs/Day Years Used Date Smoking Tobacco: Former Alcohol Use Standard Drinks/Week Comments Not Asked 0 (1 standard drink = 0.6 oz pur e alcohol) Sex and Gender Information Value Date Recorded Sex Assigned at Not on file Gender Identity Not on file Sexual Orientation Not on file documented as of this encounter Medications at Time of Discharge Medication Sig Dispensed Refills Start Date End Date aspirin 81 MG tablet Take 81 mg by mouth once daily. finasteride (PROSCAR) 5 MG tablet Take 5 mg by mouth once daily. B Mpiboxo-B-Wtrln Acid (STRESS FORMULA PO) Take by mouth 2 times daily. 04/18/2024 cloNIDine (CATAPRES) 0.2 MG tablet Take 0.2 mg by mouth 2 times daily. 06/01/2018 clopidogrel (PLAVIX) 75 MG tabletIndications:CAD (coronary artery disease) Take 1 Tab by mouth once daily. 30 Tab 11 09/21/2012 04/18/2024 fluticasone propionate (FLONASE) 50 MCG/ACT nasal spray [place] 2 Sprays into each nostril once daily. 05/30/2017 gemfibrozil (LOPID) 600 MG tablet Take 600 mg by mouth 2 times daily before meals. 05/24/2016 KLOR-CON M20 20 MEQ tablet 09/22/2014 05/30/2017 metFORMIN (GLUCOPHAGE) 500 MG tablet Take 500 mg by mouth 2 times daily with morning and evening meal. 05/30/2017 metoprolol succinate XL 24hr (TOPROL XL) 25 MG tablet Take 25 mg by mouth 2 times daily. 04/18/2024 Multiple Vitamins-Minerals (UNICOMPLEX-M) TABS Take by mouth once daily. 05/30/2017 Niacin, Antihyperlipidemic, 500 MG TABS Take 500 mg by mouth. 2016 omeprazole (PRILOSEC) 20 MG capsule Take 20 mg by mouth 2 times daily before meals. 11/30/2018 pravastatin (PRAVACHOL) 40 MG tablet Take 40 mg by mouth once daily. 05/24/2016 quinapril (ACCUPRIL) 40 MG tablet Take 40 mg by mouth once daily. 1/2 tab daily 05/30/2017 spironolactone (ALDACTONE) 25 MG tablet Take 1 Tab by mouth once daily. 30 Tab 11 09/21/2012 06/01/2018 tamsulosin CR 24hr (FLOMAX) 0.4 MG capsule Take 0.4 mg by mouth once daily. Take 30 minutes after a meal at the same time each day. 04/18/2024 documented as of this encounter Progress Notes * Yeimi Joshua - 11/24/2015 11:07 AM CDTQuick Note: Pt informed * Garth Millan MD - 11/24/2015 10:07 AM CDTQuick Note: Please call patient. Stress test results good. Follow up as scheduled. Garth Millan MD 11/24/2015 10:07 AM documented in this encounter Plan of Treatment Upcoming Encounters Date Type Department Care Team (Late st Contact Info) Description 07/11/2024 10:30 AM WATER GAS OPERATOR Office Visit [facility] - Geriatrics [address] [place] [phone] Liza Morrow MD [address] [place] [phone] 07/16/2024 10:00 AM WATER GAS OPERATOR Office Visit [facility] - Ophthalmology [address] [place] [phone] Shahriar Young MD [address] [place] [address] [place] [address] documented as of this encounter Procedures Procedure Name Priority Date/Time Associated Diagnosis Comments NM MYOCARD PERF REST STRESS Routine 11/23/2015 12:20 PM CDT Atherosclerosis of augustine coronary artery of augustine heart with angina pectoris (HCC) documented in this encounter Results * NM MYOCARD PERFUSION SPECT STRESS AND REST (11/23/2015 12:20 PM CDT) Anatomical Region Laterality Modality Chest Nuclear Medicine 11/23/2015 2:02 PM CDT Narrative 11/23/2015 2:05 PM CDT NM MYOCARDIAL SPECT SCAN Indications for examination: Known coronary artery disease, hypertension, hyperlipidemia A resting study is carried out with ??10 ??mCi Tc Myoview. Patient is then injected with 0.4 mg lexiscan followed by 30 mCi Tc Myoview. A preliminary stress test report indicates no report currently available. There is mild fixed thinning posterior inferior wall. No reversible ischemia. No other fixed or reversible perfusion defects are demonstrated. Left ventricular ejection fraction is 48%. There is mild global hypokinesis most marked posterior wall. Conclusion: Mild fixed thinning posterior inferior wall. No reversible ischemia. No other perfusion abnormality identified. Left ventricular ejection fraction 48%. There is mild global hypokinesis most marked at the posterior wall. Procedure Note Emil Sanchez MD - 11/23/2015 NM MYOCARDIAL SPECT SCAN Indications for examination: Known coronary artery disease, hypertension, hyperlipidemia A resting study is carried out with 10 mCi Tc Myoview. Patient is then injected with 0.4 mg lexiscan followed by 30 mCi Tc Myoview. A preliminary stress test report indicates no report currently available. There is mild fixed thinning posterior inferior wall. No reversible ischemia. No other fixed or reversible perfusion defects are demonstrated. Left ventricular ejection fraction is 48%. There is mild global hypokinesis most marked posterior wall. Conclusion: Mild fixed thinning posterior inferior wall. No reversible ischemia. No other perfusion abnormality identified. Left ventricular ejection fraction 48%. There is mild global hypokinesis most marked at the posterior wall. Garth Millan MD NM ORDERABLES documented in this encounter Visit Diagnoses Diagnosis CAD in augustine artery Coronary atherosclerosis of augustine coronary artery Stented coronary artery Postsurgical percutaneous transluminal coronary angioplasty status Dyslipidemia Other and unspecified hyperlipidemia Essential hypertension, benign Atherosclerosis of augustine coronary artery of augustine heart with angina pectoris (HCC) documented in this encounter Care Teams Rib Builder Relationship Specialty Start Date End Date Wesley Em MD PCP - General Internal Medicine 09/20/12 documented as of this encounter
--- OUTSIDE RECORDS SUMMARY | 2024-06-18 18:02 | XMS_ITS | Encounter Summary ---
Author Organization [facility] Address [address] [place] [address] Care Team Providers Care Hand Hose Cutter Name Role Phone Wesley Em MD Primary Care Provider Unavail able Reason for Visit * Reason Comments Refill Request Encounter Details Date Type Department Care Team (Late st Contact Info) Description 11/19/[address], [address] [place], [place] [phone] Juliano Lancaster MD Refill Request Social History Tobacco Use Types Packs/Day Years [...] Encounters Date Type Department Care Team (Late Contact Info) Description 07/11/2024 10:30 AM JEWELRY APPRAISER Office Visit [facility] - Geriatrics [address] [place] [phone] Liza Morrow MD [address] [place] [phone] 07/16/2024 10:00 AM JEWELRY APPRAISER Office Visit [facility] - Ophthalmology [address] [place] [phone] Shahriar Young MD [address] [place] [address] [place] [phone] documented as of this encounter Visit Diagnoses Not on filedocumented in this encounter Care Teams Hand Hose Cutter Relationship Specialty Start Date End Date Wesley Em MD PCP - General Internal Medicine 09/20/12 documented as of this encounter
--- OUTSIDE RECORDS SUMMARY | 2024-06-18 18:02 | XMS_ITS | Encounter Summary ---
Author Organization [facility] Address [address] [place] [address] Care Team Providers Care Printing Plate Setter Name Role Phone Wesley Em MD Primary Care Provider Unavail able Reason for Visit * Reason Comments Follow-up Coronary Artery Disease Encounter Details Date Type Department Care Team (Late st Contact Info) Description 11/11/2014 2:30 PM CDT Office Visit [facility] [address] [facility] [address] [place] [address] [place] [address] [facility] [address] [place], [place] [phone] CAD (coronary artery disease) (Primary Dx); Stented coronary artery; Dyslipidemia; Essential hypertension, benign; DM (diabetes mellitus) (HCC) Social History Tobacco Use Types Packs/Day [...] Sign Reading Time Taken Comments Blood Pressure 165/92 11/11/2014 2:49 PM CDT Pulse 81 11/11/2014 2:49 PM CDT Temperature - - Respiratory Rate 16 11/11/2014 2:49 PM CDT Oxygen Saturation - - Inhaled Oxygen Concentration - - Weight - - Height - - Body Mass Index - - documented in this encounter Progress Notes * Garth Millan MD - 11/11/2014 3:16 PM CDT Cardiology Follow up Visit PCP: Wesley Em SUBJECTIVE: Villa Zuniga comes today for follow [...] symptoms Dermatological ROS: negative PHYSICAL EXAM: BP 165/92 mmHg Pulse 81 Resp 16 General appearance: alert, cooperative, no distress Head: [...] II - XII are grossly intact CARDIOGRAPHICS: PCI 09/12: CONCLUSION: 1. Successful percutaneous coronary intervention, rotational atherectomy, and implantation of a 3.0 x 26 mm Resolute drug-eluting stent in the proximal right coronary artery. 2. Successful percutaneous vascular access closure. No results for input(s): CHOL, TRIG, HDL, LDLCALC in the last 53483 hours. ASSESSMENT/PLAN: 1. CAD: doing well post PCI. Continue current regimen 2. Hypertension: the patient has not taken his medications today yet. 3. Dyslipidemia 4. DM 5. Polycythemia Vera. 6. Follow up in 6 months. Garth Millan MD 11/11/2014 3:17 PM documented in this encounter Plan of Treatment Upcoming Encounters Date Type Department Care Team (Late st Contact Info) Description 07/11/2024 10:30 AM WARDROBE STYLIST Office Visit [facility] - Geriatrics [address] [place] [phone] Liza Morrow MD [address] [place] [phone] 07/16/2024 10:00 AM WARDROBE STYLIST Office Visit [facility] - Ophthalmology [address] [place] [address], [place] [phone] Shahriar Young MD [address] [place] [address] [place] [phone] documented as of this encounter Visit Diagnoses Diagnosis CAD (coronary artery disease)- Primary Coronary atherosclerosis of unspecified type of vessel, [facility] or graft Stented coronary artery Postsurgical percutaneous transluminal coronary angioplasty status Dyslipidemia Other and unspecified hyperlipidemia Essential hypertension, benign DM (diabetes mellitus) (HCC) Type II or unspecified type diabetes mellitus without mention of complication, not stated as uncontrolled documented in this encounter Care Teams Printing Plate Setter Relationship Specialty Start Date End Date Wesley Em MD PCP - General Internal Medicine 09/20/12 documented as of this encounter
--- OUTSIDE RECORDS SUMMARY | 2024-06-18 18:02 | XMS_ITS | Encounter Summary ---
Author Organization [facility] Address [address] [facility] [place] [address] Care Team Providers Care Home Improvement Contractor Name Role Phone Wesley Em MD Primary Care Provider Unavail able Reason for Visit * Reason Comments Coronary Artery Disease Follow-up 6 month Encounter Details Date Type Department Care Team (Late st Contact Info) Description 06/13/2019 2:20 PM RESTORER PAPER AND PRINTS Office Visit [facility] [address] [place] [phone] Garth Millan MD [address] [place] [phone] CAD in [place] artery (Primary Dx); Essential hypertension; Dyslipidemia Social History Tobacco Use Types Packs/Day [...] Sign Reading Time Taken Comments Blood Pressure 163/83 06/13/2019 2:25 PM RESTORER PAPER AND PRINTS Pulse 53 06/13/2019 2:25 PM RESTORER PAPER AND PRINTS Temperature - - Respiratory Rate 16 06/13/2019 2:25 PM RESTORER PAPER AND PRINTS Oxygen Saturation - - Inhaled Oxygen Concentration - - Weight 91.3 kg (201 lb 3.2 oz) 06/13/2019 2:25 P M RESTORER PAPER AND PRINTS Height 177.8 cm (5' 10 ) 06/13/2019 2:25 PM RESTORER PAPER AND PRINTS Body Mass Index 28.87 06/13/2019 2:25 PM RESTORER PAPER AND PRINTS documented in this encounter Progress Notes * Garth Millan MD - 06/13/2019 2:44 PM CST Cardiology Follow up Visit PCP: Wesley Em MD SUBJECTIVE: Villa Zuniga comes today for follow up visit. Current diagnoses include hypertension, hyperlipidemia, 2-V CAD, PCI to CFX 08/15 for abnormal stress test, staged roto/stent RCA 09/12, DM, and Polycythemia Vera. Since last visit he has done well without angina, dyspnea. He is physically sedentary, and recently was evaluated in the ED for elevated BP. Family and Social History/Risk Factors: Premature CAD: [...] symptoms Dermatological ROS: negative PHYSICAL EXAM: BP 163/83 Pulse 53 Resp 16 Ht 1.778 m (5' 10 ) Wt 91.3 kg (201 lb 3.2 oz) BMI 28.87 kg/m2 General appearance: alert, cooperative, no distress [...] CHOL, TRIG, HDL, LDLCALC in the last 63352 hours. ASSESSMENT/PLAN: 1. CAD: doing well post PCI. Will continue current regimen. 2. Hypertension: usually well controlled 3. Dyslipidemia: followed by Dr Em. 4. DM 5. Polycythemia Vera. 6. Follow up in 6 months. Garth Millan MD 06/13/2019 2:45 PM ORER PAPER AND PRINTS documented in this encounter Plan of Treatment Upcoming Encounters Date Type Department Care Team (Late st Contact Info) Description 07/11/2024 10:30 AM RESTORER PAPER AND PRINTS Office Visit [facility] - Geriatrics [address] [place] [phone] Liza Morrow MD [address] [place] [phone] 07/16/2024 10:00 AM RESTORER PAPER AND PRINTS Office Visit [facility] - Ophthalmology [address] [place] [phone] Shahriar Young MD [address] [place] [address] [place] [phone] documented as of this encounter Visit Diagnoses Diagnosis CAD in [place] artery- Primary Coronary atherosclerosis of [place] coronary artery Essential hypertension Dyslipidemia Other and unspecified hyperlipidemia documented in this encounter Care Teams Home Improvement Contractor Relationship Specialty Start Date End Date Wesley Em MD PCP - General Internal Medicine 09/20/12 documented as of this encounter
--- OUTSIDE RECORDS SUMMARY | 2024-06-18 18:02 | XMS_ITS | Encounter Summary ---
Author Organization [facility] Address [address] [place] [address] Care Team Providers Care Blind Cleaner Name Role Phone Wesley Em MD Primary Care Provider Unavail able Encounter Details Date Type Department Care Team (Latest Contact Info) Description 05/27/2024 Travel Social History Tobacco Use Types Packs/Day Years [...] st Contact Info) Description 07/11/2024 10:30 AM SENIOR NET PROGRAMMER Office Visit [facility] [address] [place] [phone] Liza Morrow MD [address] [place] [phone] 07/16/2024 10:00 AM SENIOR NET PROGRAMMER Office Visit [facility] [address] [place] [phone] Shahriar Young MD [address] [place] [address] [place] [phone] documented as of this encounter Visit Diagnoses Not on filedocumented in this encounter Care Teams Blind Cleaner Relationship Specialty Start Date End Date Wesley Em MD PCP - General Internal Medicine 09/20/12 documented as of this encounter
--- OUTSIDE RECORDS SUMMARY | 2024-06-18 18:02 | XMS_ITS | Referral Summary ---
Author Organization [facility] Address [address] [place] [address] Care Team Providers Care Manufacturing Engineer Assembly Name Role Phone Wesley Em MD Primary Care Provider Unavail able Source Comments [facility],non-owned Affiliates and Associated Physician Practices is amultiple site organization consisting of ambulatory clinics and hospital sitesin [place], [place], [place] and [place]. This disclosure is being madepursuant to the Care Everywhere program and may not contain all information available regarding this patient. Last updated 18.[facility] Encounters Date Type Department Care Team Description 06/13/2024 Telephone [facility] [place] [phone] Shahriar Young MD Reschedule Appointment (06/13-Left message of Hector's 06/13 cancellation-dept will call back to reschedule per [id number]) 05/27/2024 Travel 05/27/2024 2:00 PM MANAGER METAL Office Visit [facility] [address] [place] [phone] Rick Roque MD Sensorineural hearing loss (SNHL) of both ears (Primary Dx) 05/27/2024 1:30 PM MANAGER METAL Testing Visit [facility] [address] [place] [phone] Keesha Bateman AuD Sensorineural hearing loss (SNHL) of both ears 04/30/2024 Orders Only [facility] [address] [place] [phone] Liza Morrow MD History of CVA (cerebrovascular accident) ; Parkinsonian features; Moderate dementia with other behavioral disturbance, unspecified dementia type (HCC) 04/22/2024 Travel 04/18/2024 Travel 04/18/2024 8:00 AM CDT Office Visit [facility] [address] [facility] [place] [address] Liza Morrow MD Blurry vision (Primary Dx); Hearing loss, unspecified hearing loss type, unspecified laterality; Pneumococcal vaccine administered; Hyperglycemia; Parkinsonian features; Moderate dementia with other behavioral disturbance, unspecified dementia type (HCC) from Last 3 Months Allergies Active Allergy Reactions Criticality Noted Date Comments Ciprofloxacin 09/12/2012 Medications * Be aware that medications may not be up to date on this document. Alwaysverify current medications with the patient. Medication Sig Dispensed Refills Start Date End Date Status aspirin 81 MG tablet Take 81 mg by mouth once daily. Active finasteride (PROSCAR) 5 MG tablet Take 5 mg by mouth once daily. Active atorvastatin (LIPITOR) 40 MG tablet Take 1 Tab by mouth at bedtime 05/24/2016 Active amLODIPine (Norvasc) 5 MG tablet Take 1 (one) tablet by mouth once daily 09/25/2023 Active lisinopril (Prinivil; Zestril) 20 MG tablet Take 1 (one) tablet by mouth once daily 02/06/2023 Active magnesium oxide (Mag-Ox) 400 MG tablet TAKE 1 TABLET(400 MG) BY MOUTH TWICE DAILY 07/17/2023 Active memantine (Namenda) 5 MG tablet Take 1 (one) tablet by mouth 2 times daily 11/13/2023 08/09/2024 Active omeprazole (PriLOSEC) 20 MG capsule Take 1 (one) capsule by mouth once daily 01/24/2024 Active rivaroxaban (Xarelto) 20 MG tablet Take 1 (one) tablet by mouth daily with food Active rivaroxaban (Xarelto) 20 MG tablet Take 1 (one) tablet by mouth daily with food 05/01/2024 Active docusate sodium (Colace) 100 MG capsule Take by mouth once daily 05/01/2024 Active Active Problems No known active problems Immunizations Name Administration Dates Next Due Covid Pfizer primary monovalent 12+ yr 0.3mL Pur ple cap 09/06/2021 PNEUMOCOCCAL PCV20 CONJ VAC IM 04/18/2024 TDAP (7yrs+) 12/19/2007 TDAP, HISTORIC VACCINE 09/16/2022 Social History Tobacco Use Types Packs/Day Years Used Date Smoking Tobacco: Former Smokeless Tobacco: Never Tobacco Cessation:Counseling Given: Not Answered Alcohol Use Standard Drinks/Week Comments Not Asked 0 (1 standard drink = 0.6 oz pur e alcohol) Sex and Gender Information Value Date Recorded Sex Assigned at Not on file Gender Identity Not on file Sexual Orientation Not on file Last Filed Vital Signs Vital Sign Reading Time Taken Comments Blood Pressure 125/71 05/27/2024 2:11 PM MANAGER METAL Pulse 49 05/27/2024 2:11 PM MANAGER METAL Temperature 36.4 ??C (97.6 ??F) 09/21/2012 11:22 AM C DT Respiratory Rate 16 06/13/2019 2:25 PM MANAGER METAL Oxygen Saturation 94% 05/27/2024 2:11 PM MANAGER METAL Inhaled Oxygen Concentration 98% 09/20/2012 1 :45 PM CDT Weight 83.5 kg (184 lb) 05/27/2024 2:11 PM MANAGER METAL Height 172.7 cm (5' 8 ) 05/27/2024 2:11 PM MANAGER METAL Body Mass Index 27.98 05/27/2024 2:11 PM MANAGER METAL Plan of Treatment Upcoming Encounters Date Type Department Care Team (Late st Contact Info) Description 07/11/2024 10:30 AM MANAGER METAL Office Visit [facility] [address] [place] [phone] Liza Morrow MD [address] [place] [phone] 07/16/2024 10:00 AM MANAGER METAL Office Visit [facility] Ophthalmology [address] [place] [phone] Shahriar Young MD [address] [place] [address] [place] [phone] Procedures Procedure Name Priority Date/Time Associated Diagnosis Comments AUDIOLOGY/TYMPANOMET RY ORDER Routine 05/27/2024 1:26 PM MANAGER METAL HEMOGLOBIN A1C - POINT OF CARE (AMB) [facility] Routine 04/18/2024 9:54 AM CDT Hyperglycemia from Last 3 Months Results * AUDIOLOGY/TYMPANOMETRY ORDER (05/27/2024 1:26 PM MANAGER METAL) Keesha Ovalle Aung - 05/27/2024 1:50 PM MANAGER METAL History: [place] Zuniga arrived for a hearing evaluation. Patient has moderate Dementia and has been referred for a hearing test. There is concern regarding hearing loss for both ears. He has never worn hearing aids before. There is a history of extensive noise exposure without hearing protection. He denies tinnitus and dizziness. There is an unknown family history of hearing loss. There is not a history of surgery on either ear(s). Results: Puretone air/bone conduction testing revealed a mild sloping to profound SN hearing loss in the right ear and a mild sloping to profound SN hearing loss in the left ear. Speech understanding was fair in the right ear and fair in the left ear. Immittance measures revealed a Type A tympanogram in the right ear, indicating normal middle ear function. Results for the left ear revealed a Type A tympanogram, indicating normal middle ear function in that ear. These results were discussed in detail with the patient and all pertinent questions were answered. Recommendations: 1) ENT consult. 2) Re check per medical recommendation, annually, or if a change in hearing is suspected. 3) Hearing protection in noise. 4) Amplification pending interest/medical clearance. Aung Garcia. CCC-A Clinical Dry Mop Maker [facility]Department of Otol[facility]ology[facility] [address] [place] [address]. ([facility] [place] [address] Keesha Horan AUDIOLOGY SERVICES O RDERABLES * HEMOGLOBIN A1C - POINT OF CARE (AMB) [facility] (04/18/2024 9:54 AM CDT) Hemoglobin A1c POCT 6.3 % SANJAY DUMONT KISHORE Blood BLOOD SPECIMEN / Unknown 04/18/2024 9:54 AM CDT Liza Morrow MD LAB - POINT OF CARE ORDERABLES SANJAY Huber [facility] [address] [facility] [place] [address], [facility] [phone] from Last 3 Months Advance Directives Documents on File Type Date Recorded Patient Theoretical Physicist Expl anation Adv Directive/Living Will/POA 05/08/2024 1:13 PM DNR PRACTITIONER ORD ERS 04/30/24 Adv Directive/Living Will/POA 09/22/2012 9:33 AM * FULL RESUSCITATION (Latest Code Status on File) Date Activated Date Inactivated Comments 09/20/2012 5:05 PM 09/21/2012 3:57 PM Care Teams Manufacturing Engineer Assembly Relationship Specialty Start Date End Date Wesley Em MD PCP - General Internal Medicine 09/20/12
--- OUTSIDE RECORDS SUMMARY | 2024-06-18 18:02 | XMS_ITS | Encounter Summary ---
Author Organization [facility] Address [address] [facility] [place] [address] Care Team Providers Care Food And Nutrition Supervisor Name Role Phone Wesley Em MD Primary Care Provider Unavail able Reason for Visit * Reason Comments Follow-up 6 mo Encounter Details Date Type Department Care Team (Late st Contact Info) Description 05/13/2015 1:15 PM PROGRAM SUPPORT CLERK Office Visit [facility] [address] [facility] [address] [place] [address] [place] [address] [facility] [address] [place], [place] [phone] CAD in [place] artery (Primary Dx); Stented coronary artery; Dyslipidemia; DM II (diabetes mellitus, type II), controlled (HCC) Social History Tobacco Use Types Packs/Day [...] Sign Reading Time Taken Comments Blood Pressure 182/98 05/13/2015 1:33 PM PROGRAM SUPPORT CLERK Pulse 72 05/13/2015 1:33 PM PROGRAM SUPPORT CLERK Temperature - - Respiratory Rate 16 05/13/2015 1:33 PM PROGRAM SUPPORT CLERK Oxygen Saturation - - Inhaled Oxygen Concentration - - Weight 88.7 kg (195 lb 9.6 oz) 05/13/2015 1:33 P M PROGRAM SUPPORT CLERK Height 177.8 cm (5' 10 ) 05/13/2015 1:33 PM PROGRAM SUPPORT CLERK Body Mass Index 28.07 05/13/2015 1:33 PM PROGRAM SUPPORT CLERK documented in this encounter Progress Notes * Garth Millan MD - 05/13/2015 1:47 PM CST Cardiology Follow up Visit PCP: [...] symptoms Dermatological ROS: negative PHYSICAL EXAM: BP 182/98 mmHg Pulse 72 Resp 16 Wt 88.724 kg (195 lb 9.6 oz) BMI 28.07 kg/m2 General appearance: alert, cooperative, no distress [...] CHOL, TRIG, HDL, LDLCALC in the last 31395 hours. ASSESSMENT/PLAN: 1. CAD: doing well post PCI. Continue current regimen 2. Hypertension: the patient has not taken his medications today yet. 3. Dyslipidemia: followed by Dr Em. 4. DM 5. Polycythemia Vera. 6. Follow up in 6 months. Garth Millan MD 05/13/2015 1:48 PM RAM SUPPORT CLERK documented in this encounter Plan of Treatment Upcoming Encounters Date Type Department Care Team (Late st Contact Info) Description 07/11/2024 10:30 AM PROGRAM SUPPORT CLERK Office Visit [facility] [address] [place] [phone] Liza Morrow MD [address] [place] [phone] 07/16/2024 10:00 AM PROGRAM SUPPORT CLERK Office Visit [facility] - Ophthalmology [address] [place] [phone] Shahriar Young MD [address] [place] [address] [place] [address] documented as of this encounter Visit Diagnoses Diagnosis CAD in [place] artery- Primary Coronary atherosclerosis of [place] coronary artery Stented coronary artery Postsurgical percutaneous transluminal coronary angioplasty status Dyslipidemia Other and unspecified hyperlipidemia DM II (diabetes mellitus, type II), controlled (HCC) Type II or unspecified type diabetes mellitus without mention of complication, not stated as uncontrolled documented in this encounter Care Teams Food And Nutrition Supervisor Relationship Specialty Start Date End Date Wesley Em MD PCP - General Internal Medicine 09/20/12 documented as of this encounter
--- OUTSIDE RECORDS SUMMARY | 2024-06-18 18:02 | XMS_ITS | Encounter Summary ---
Author Organization [facility] Address [address] [facility] [place] [address] Care Team Providers Care Rn Corrections Name Role Phone Wesley Em MD Primary Care Provider Unavail able Reason for Visit * Reason Comments Coronary Artery Disease Follow-up 6 month Encounter Details Date Type Department Care Team (Late st Contact Info) Description 11/30/2018 2:10 PM CDT Office Visit [facility] [address] [place] [address] Garth Millan MD [address] [place] [address] CAD in [place] artery (Primary Dx); Dyslipidemia; Essential hypertension Social History Tobacco Use Types Packs/Day Years [...] Sign Reading Time Taken Comments Blood Pressure 167/98 11/30/2018 2:26 PM CDT Pulse 77 11/30/2018 2:26 PM CDT Temperature - - Respiratory Rate 16 11/30/2018 2:26 PM CDT Oxygen Saturation - - Inhaled Oxygen Concentration - - Weight 89.5 kg (197 lb 6.4 oz) 11/30/2018 2:26 P M CDT Height 177.8 cm (5' 10 ) 11/30/2018 2:26 PM CDT Body Mass Index 28.32 11/30/2018 2:26 PM CDT documented in this encounter Progress Notes * Garth Millan MD - 11/30/2018 2:53 PM CDT Cardiology Follow up Visit PCP: [...] carry out his daily activities without difficulty. He did not take his blood pressure medicine today. Family and Social History/Risk Factors: Premature CAD: [...] symptoms Dermatological ROS: negative PHYSICAL EXAM: BP 167/98 Pulse 77 Resp 16 Ht 1.778 m (5' 10 ) Wt 89.5 kg (197 lb 6.4 oz) BMI 28.32 kg/m2 General appearance: alert, cooperative, no distress [...] CHOL, TRIG, HDL, LDLCALC in the last 0[address] hours. ASSESSMENT/PLAN: 1. CAD: doing well post PCI. Will continue current regimen. 2. Hypertension: usually well controlled 3. Dyslipidemia: followed by Dr Em. 4. DM 5. Polycythemia Vera. 6. Follow up in 6 months. Garth Millan MD 11/30/2018 2:53 PM documented in this encounter Plan of Treatment Upcoming Encounters Date Type Department Care Team (Late st Contact Info) Description 07/11/2024 10:30 AM RECEIVING TANK OPERATOR Office Visit [facility] [address] [place] [phone] Liza Morrow MD [address] [place] [phone] 07/16/2024 10:00 AM RECEIVING TANK OPERATOR Office Visit [facility] - Ophthalmology [address] [place] [phone] Shahriar Young MD [address] [place] [address] [place] [address] documented as of this encounter Visit Diagnoses Diagnosis CAD in [place] artery- Primary Coronary atherosclerosis of [place] coronary artery Dyslipidemia Other and unspecified hyperlipidemia Essential hypertension documented in this encounter Care Teams Rn Corrections Relationship Specialty Start Date End Date Wesley Em MD PCP - General Internal Medicine 09/20/12 documented as of this encounter
--- OUTSIDE RECORDS SUMMARY | 2024-06-18 18:02 | XMS_ITS | Encounter Summary ---
Author Organization [facility] Address [address] [facility] [place] [address] Care Team Providers Care Clean Room Assembler Name Role Phone Wesley Em MD Primary Care Provider Unavail able Encounter Details Date Type Department Care Team (Latest Contact Info) Description 04/18/2024 Travel Social History Tobacco Use Types Packs/Day [...] st Contact Info) Description 07/11/2024 10:30 AM DIRECTOR TRIAL Office Visit [facility] [address] [place] [phone] Liza Morrow MD [address] [place] [phone] 07/16/2024 10:00 AM DIRECTOR TRIAL Office Visit [facility] [address] [place] [phone] Shahriar Young MD [address] [place] [address] [place] [phone] documented as of this encounter Visit Diagnoses Not on filedocumented in this encounter Care Teams Clean Room Assembler Relationship Specialty Start Date End Date Wesley Em MD PCP - General Internal Medicine 09/20/12 documented as of this encounter
--- OUTSIDE RECORDS SUMMARY | 2024-06-18 18:02 | XMS_ITS | Encounter Summary ---
Author Organization [facility] Address [address] [facility] [place] [address] Care Team Providers Care Research Attorney Name Role Phone Wesley Em MD Primary Care Provider Unavail able Reason for Visit * Reason Onset Date Comments Medication Check 05/30/2017 Encounter Details Date Type Department Care Team (Late st Contact Info) Description 05/30/2017 Telephone [facility] [address] [address] Fariba Koenig, HEAD RIGGER-[facility] [address] [facility] [address] [place] [phone] Medication Check Social History Tobacco Use Types Packs/Day Years Used Date Smoking Tobacco: Former Smokeless Tobacco: Never Alcohol Use Standard Drinks/Week Comments Not Asked 0 (1 standard drink = 0.6 oz pur e alcohol) Sex and Gender Information Value Date Recorded Sex Assigned at Not on file Gender Identity Not on file Sexual Orientation Not on file documented as of this encounter Miscellaneous Notes * Telephone Encounter - Carin Villalta - 05/30/2017 3:42 PM CST Pt med List, was told to call in with them, 81 mg aspirin, tamsulosin 4 mg capsule daily, metoprolol 25 mg 1 tab twice a day, finasteride 5 mg 1 daily, ranitidine 300 mg tab 1 tab twice daily, clopidogrel 75 mg daily, potassium- citrate er 10 mg 2 tabs twice daily,and atorvastatin 40 mg I daily. REMOVER documented in this encounter Plan of Treatment Upcoming Encounters Date Type Department Care Team (Late st Contact Info) Description 07/11/2024 10:30 AM GUM REMOVER Office Visit [facility] [address] [place] [phone] Liza Morrow MD [address] [place] [address] 07/16/2024 10:00 AM GUM REMOVER Office Visit [facility] - Ophthalmology [address] [place] [phone] Shahriar Young MD [address] [place] [address] [place] [phone] documented as of this encounter Visit Diagnoses Not on filedocumented in this encounter Care Teams Research Attorney Relationship Specialty Start Date End Date Wesley Em MD PCP - General Internal Medicine 09/20/12 documented as of this encounter
--- OUTSIDE RECORDS SUMMARY | 2024-06-18 18:02 | XMS_ITS | Encounter Summary ---
Author Organization [facility] Address [address] [facility] [place] [address] Care Team Providers Care Mathematical Scientist Name Role Phone Wesley Em MD Primary Care Provider Unavail able Reason for Visit * Reason Comments Coronary Artery Disease Follow-up 6 month Encounter Details Date Type Department Care Team (Late st Contact Info) Description 06/01/2018 2:30 PM CONTROL ROOM OPERATOR Office Visit [facility] [address] [place] [address] Garth Millan MD [address] [place] [address] CAD in [place] artery (Primary Dx); Dyslipidemia; Essential hypertension Social [...] Sign Reading Time Taken Comments Blood Pressure 176/87 06/01/2018 2:28 PM CONTROL ROOM OPERATOR Pulse 60 06/01/2018 2:28 PM CONTROL ROOM OPERATOR Temperature - - Respiratory Rate 16 06/01/2018 2:28 PM CONTROL ROOM OPERATOR Oxygen Saturation - - Inhaled Oxygen Concentration - - Weight 88.9 kg (196 lb) 06/01/2018 2:28 PM CONTROL ROOM OPERATOR Height 172.7 cm (5' 8 ) 06/01/2018 2:28 PM CONTROL ROOM OPERATOR Body Mass Index 29.8 06/01/2018 2:28 PM CONTROL ROOM OPERATOR documented in this encounter Progress Notes * Garth Millan MD - 06/01/2018 2:57 PM CST Cardiology Follow up Visit PCP: [...] out his daily activities without difficulty. He took his blood pressure medicine late todaydue to schedule issues. Family and Social History/Risk Factors: Premature CAD: [...] symptoms Dermatological ROS: negative PHYSICAL EXAM: BP 176/87 Pulse 60 Resp 16 Ht 1.727 m (5' 8 ) Wt 88.9 kg (196 lb) BMI 29.8 kg/m2 General appearance: alert, cooperative, no distress [...] CHOL, TRIG, HDL, LDLCALC in the last 03485 hours. ASSESSMENT/PLAN: 1. CAD: doing well post PCI. Will continue current regimen. 2. Hypertension: usually well controlled 3. Dyslipidemia: followed by Dr Em. 4. DM 5. Polycythemia Vera. 6. Follow up in 6 months. Garth Millan MD 06/01/2018 2:57 PM ROL ROOM OPERATOR documented in this encounter Plan of Treatment Upcoming Encounters Date Type Department Care Team (Late st Contact Info) Description 07/11/2024 10:30 AM CONTROL ROOM OPERATOR Office Visit [facility] [address] [place] [phone] Liza Morrow MD [address] [place] [phone] 07/16/2024 10:00 AM CONTROL ROOM OPERATOR Office Visit [facility]mology [address] [place] [phone] Shahriar Young MD [address] [place] [address] [place] [phone] documented as of this encounter Visit Diagnoses Diagnosis CAD in [place] artery- Primary Coronary atherosclerosis of [place] coronary artery Dyslipidemia Other and unspecified hyperlipidemia Essential hypertension documented in this encounter Care Teams Mathematical Scientist Relationship Specialty Start Date End Date Wesley Em MD PCP - General Internal Medicine 09/20/12 documented as of this encounter
--- OUTSIDE RECORDS SUMMARY | 2024-06-18 18:02 | XMS_ITS | Encounter Summary ---
Author Organization [facility] Address [address] [facility] [place] [address] Care Team Providers Care Accounts Payable Accountant Name Role Phone Wesley Em MD Primary Care Provider Unavail able Reason for Visit * Cardiac (Routine) - Closed Specialty Diagnoses / Procedures Referred By Contac t Referred To Contact Radiology Diagnoses CAD in [place] artery Stented coronary artery Dyslipidemia Essential hypertension, benign Procedures STRESS TEST LEXISCAN ([place]AR) [place] [address] [place] [address] Dphc Cvi Dphc-Mob [address] [facility] [address] [place] [address] Referral ID Status Reason Start Date Expiration Date Visits Re quested Visits Authorized [id number] Closed 11/18/2015 05/16/2016 2 2 Encounter Details Date Type Department Care Team (Latest Contact Info) Description 11/23/2015 9:38 AM CDT - 11/23/2015 11:59 PM CDT Hospital Encounter [facility] [address] [place] [address] [place] [address] [place] [address] Discharge Disposition: Home or Self [...] 5 mg by mouth once daily. B Ybkzivy-Y-Cfgbc Acid (STRESS FORMULA PO) Take by mouth 2 times daily. 04/18/2024 cloNIDine (CATAPRES) 0.2 MG tablet Take 0.2 mg by mouth 2 times daily. 06/01/2018 clopidogrel (PLAVIX) 75 MG tabletIndications:CAD (coronary artery disease) Take 1 Tab by mouth once daily. 30 Tab 11 09/21/2012 04/18/2024 fluticasone propionate (FLONASE) 50 MCG/ACT nasal spray [place] 2 Sprays into each nostril once daily. [...] day. 04/18/2024 documented as of this encounter Plan of Treatment Upcoming Encounters Date Type Department Care Team (Late st Contact Info) Description 07/11/2024 10:30 AM VICE PRESIDENT INVESTOR RELATIONS Office Visit [facility] - Geriatrics [address] [place] [address], [place] [phone] Liza Morrow MD [address] [place] [address]. [place] [address] 07/16/2024 10:00 AM VICE PRESIDENT INVESTOR RELATIONS Office Visit [facility] - Ophthalmology [address] [place] [address], [place] [phone] Shahriar Young MD [address] [place] [address] [place] [phone] documented as of this encounter Procedures Procedure Name Priority Date/Time Associated Diagnosis Comments STRESS TEST LEXISCAN (NUCLEAR) Routine 11/23/2015 10:56 AM CDT Atherosclerosis of [place] coronary artery of [place] heart, angina presence unspecified documented in this encounter Results * STRESS TEST LEXISCAN (NUCLEAR) (11/23/2015 10:56 AM CDT) Stress Test Summary For full formatted report, please see the report link in the order. Acquisition Time: 2015-11-23 ??10:56:34 Total Exercise Time: 00:00:57 Test Indications: CAD Medications: Protocol: LEXISCAN ? Max HR: 096 BPM ??63% of ??Pred: 151 BPM Max BP: 178/103 mmHG Max Work Load: 1.0 METS Reason for Termination: Protocol Complete Resting ECG: Normal Functional Capacity: unable to assess HR Response to Exercise: BP Resoonse to Exercise: Chest Pain: No Chest Pain Arrhythmias: No Arrhythmias ST Changes: no significant st change Overall Impression: No ECG ??evidence of ??ischemia Findings to be correlated w/imaging report Diagnosis: Confirmed by GARTH MILLAN MD ([id number]) on 11/23/2015 11:56:30 AM Attending Physician: Referred By: ? Overread By: GARTH MILLAN MD [facility] STRESS 11/23/2015 10:5 6 AM CDT 11/23/2015 11:56 AM CDT Garth Millan MD CARDIAC SERVICES ORD ERABLES [facility] STRESS documented in this encounter Visit Diagnoses Diagnosis Atherosclerosis of [place] coronary artery of [place] heart, angina presence unspecified- Primary documented in this encounter Administered Medications Inactive Administered Medications - up to 3 most recent administrations Medication Order MAR Action Action Date Dose Rate Site 0.9% NaCl injection 1-10 mL 1-10 mL, Intracatheter, INTRA-PROCEDURE ONCE, On Mon11/23/15 at 1042 $ Given 11/23/2015 10:54 AM CDT 10 mL regadenoson (LEXISCAN) injection 0.4 mg 0.4 mg, Intravenous, INTRA-PROCEDURE ONCE, On Mon11/23/15 at 1042, Administer as a rapid injection over 10 seconds. Follow with 5ml saline flush. $ Given 11/23/2015 10:54 AM CDT 0.4 mg regadenoson (LEXISCAN) injection ADS Med 1 dose, Starting on Mon11/23/15 at 1047, Until Mon11/23/15 at 1054, Kyara Driver : cabinet override documented in this encounter Care Teams Accounts Payable Accountant Relationship Specialty Start Date End Date Wesley Em MD PCP - General Internal Medicine 09/20/12 documented as of this encounter
--- OUTSIDE RECORDS SUMMARY | 2024-06-18 18:02 | XMS_ITS | Clinical Summary ---
Author Organization [facility] Address [address] [place] [address] Care Team Providers Care Banking Center Manager Name Role Phone Wesley Em MD Primary Care Provider Unavail able Source Comments [facility],non-owned Affiliates and Associated Physician Practices is amultiple site organization consisting of ambulatory clinics and hospital sitesin [place], [place], [place] and [place]. This disclosure is being madepursuant to the Care Everywhere program and may not contain all information available regarding this patient. Last updated 18.[facility] Allergies Active Allergy Reactions Criticality Noted Date [...] Active Active Problems No known active problems Encounters Date Type Department Care Team Description 06/13/2024 Telephone [facility] - Centralized Scheduling [address] [place] [phone] Shahriar Young MD Reschedule Appointment (06/13-Left message of eHctor's 06/13 cancellation-dept will call back to reschedule per [id number]) 05/27/2024 2:00 PM BILINGUAL STUDENT TUTOR [facility] [address] [place] [phone] Rick Roque MD Sensorineural hearing loss (SNHL) of both ears (Primary Dx) 05/27/2024 1:30 PM BILINGUAL STUDENT TUTOR Testing Visit [facility] - ENT [address] [place] [phone] Keesha Bateman AuD Sensorineural hearing loss (SNHL) of both ears 05/27/2024 Travel 04/30/[address] [facility] [address] [place] [phone] Liza Morrow MD History of CVA (cerebrovascular accident) ; Parkinsonian features; Moderate dementia with other behavioral disturbance, unspecified dementia type (HCC) 04/22/2024 Travel 04/18/2024 8:00 AM CDT Office [facility] [address] [place] [phone] Liza Morrow MD Blurry vision (Primary Dx); Hearing loss, unspecified hearing loss type, unspecified laterality; Pneumococcal vaccine administered; Hyperglycemia; Parkinsonian features; Moderate dementia with other behavioral disturbance, unspecified dementia type (HCC) 04/18/2024 Travel from Last 3 Months Immunizations Name Administration Dates Next Due Covid [...] Comments Blood Pressure 125/71 05/27/2024 2:11 PM BILINGUAL STUDENT TUTOR Pulse 49 05/27/2024 2:11 PM BILINGUAL STUDENT TUTOR Temperature 36.4 ??C (97.6 ??F) 09/21/2012 11:22 AM C DT Respiratory Rate 16 06/13/2019 2:25 PM BILINGUAL STUDENT TUTOR Oxygen Saturation 94% 05/27/2024 2:11 PM BILINGUAL STUDENT TUTOR Inhaled Oxygen Concentration 98% 09/20/2012 1 :45 PM CDT Weight 83.5 kg (184 lb) 05/27/2024 2:11 PM BILINGUAL STUDENT TUTOR Height 172.7 cm (5' 8 ) 05/27/2024 2:11 PM BILINGUAL STUDENT TUTOR Body Mass Index 27.98 05/27/2024 2:11 PM BILINGUAL STUDENT TUTOR Plan of Treatment Upcoming Encounters Date Type Department Care Team (Late st Contact Info) Description 07/11/2024 10:30 AM BILINGUAL STUDENT TUTOR Office Visit [facility] - Geriatrics [address] [place] [phone] Liza Morrow MD [address] [place] [phone] 07/16/2024 10:00 AM BILINGUAL STUDENT TUTOR Office Visit [facility] - Ophthalmology [address] [place] [phone] Shahriar Young MD [address] [place] [address] [place] [address] Health Maintenance Due Date Last Done Comments MEDICARE AWV ? 12 MONTHS 1945 HEPATITIS C SCREENING 10/15/1964 ZOSTER VACCINE (1 of 2) 1996 Respiratory Syncytial Virus (RSV) Vaccine Pt: or over 60 yrs (1 - 1-dose 75+ series) 2021 DEPRESSION SCREENING 07/03/2023 COVID-19 VACCINE ( season) 2024 09/06/2021, 06/29/2021, 09/22/2020, Additional history exists INFLUENZA VACCINE (#1) 2024 DTAP/TDAP/TD VACCINES (3 - Td or Tdap) 09/16/2032 09/16/2022, 12/19/2007 PNEUMOCOCCAL VACCINE 65+ Completed 04/18/2024 HEPATITIS B VACCINE Aged Out No longe r eligible based on patient's age to complete this topic HIB VACCINE Aged Out No longer eligi ble based on patient's age to complete this topic HPV VACCINE Aged Out No longer eligi ble based on patient's age to complete this topic MENINGOCOCCAL VACCINE Aged Out No zohaib jignesh eligible based on patient's age to complete this topic Procedures Procedure Name Priority Date/Time Associated Diagnosis Comments AUDIOLOGY/TYMPANOMET RY ORDER Routine 05/27/2024 1:26 PM BILINGUAL STUDENT TUTOR HEMOGLOBIN A1C - POINT OF CARE (AMB) [facility] Routine 04/18/2024 9:54 AM CDT Hyperglycemia from Last 3 Months Results * AUDIOLOGY/TYMPANOMETRY ORDER (05/27/2024 1:26 PM BILINGUAL STUDENT TUTOR) Narrative Keesha BatemanAung - 05/27/2024 1:50 PM BILINGUAL STUDENT TUTOR History: Villa Zuniga arrived for a hearing [...] pending interest/medical clearance. Aung Garcia. CCC-A Clinical Swatch Maker Issa-Department of Otolaryngology/Audiology [facility] [address] [place] [address]. (Garden Level) [place] [address] Keesha Horan AUDIOLOGY SERVICES O RDERABLES * HEMOGLOBIN A1C - POINT OF CARE (AMB) [facility] (04/18/2024 9:54 AM CDT) Hemoglobin A1c POCT 6.3 % [address] Blood BLOOD SPECIMEN / Unknown 04/18/2024 9:54 AM CDT Liza Morrow MD LAB - POINT OF CARE ORDERABLES [address], [facility] [place] [address], [facility] [phone] from Last 3 Months Advance Directives Documents on File Type Date Recorded Patient Filter Plant Supervisor Expl anation Adv Directive/Living Will/POA 05/08/2024 1:13 PM DNR PRACTITIONER ORD ERS 04/30/24 Adv Directive/Living Will/POA 09/22/2012 9:33 AM * FULL RESUSCITATION (Latest Code Status on File) Date Activated Date Inactivated Comments 09/20/2012 5:05 PM 09/21/2012 3:57 PM Care Teams Banking Center Manager Relationship Specialty Start Date End Date Wesley Em MD PCP - General Internal Medicine 09/20/12
--- OUTSIDE RECORDS SUMMARY | 2024-06-18 18:02 | XMS_ITS | Encounter Summary ---
Author Organization [facility] Address [address] [place] [address] Care Team Providers Care Muffle Worker Name Role Phone Wesley Em MD Primary Care Provider Unavail able Reason for Referral * Evaluate & Treat (Routine) - Open Specialty Diagnoses / Procedures Referred By Jomar villela Referred To Contact Occupational Therapy Diagnoses Parkinsonian features Liza Morrwo MD [address] [place] [phone] [facility] [address] [place] [address] Referral ID Status Reason Start Date Expiration Date V isits Requested Visits Authorized [id number] Open Specialty Services Required 04/18/2024 04/18/2025 1 1 * Evaluate & Treat (Routine) - Closed Specialty Diagnoses / Procedures Referred By Jomar t Referred To Contact ENT-Otolaryngology Diagnoses Hearing loss, unspecified hearing loss type, unspecified laterality Liza Morrow MD [address] [place] [phone] [facility] [address] [place] [address] Referral ID Status Reason Start Date Expiration Date V isits Requested Visits Authorized [id number] Closed Specialty Services Required 04/18/2024 04/18/2025 1 1 * Evaluate & Treat (Routine) - Closed Specialty Diagnoses / Procedures Referred By Jomar t Referred To Contact Ophthalmology Diagnoses Blurry vision Liza Morrow MD [address] [place] [phone] [facility] [address] [place] [phone] Referral ID Status Reason Start Date Expiration Date V isits Requested Visits Authorized [id number] Closed Specialty Services Required 04/18/2024 04/18/2025 1 1 Encounter Details Date Type Department Care Team (Late st Contact Info) Description 04/18/2024 8:00 AM CDT Office Visit [facility] - Geriatrics [address] [place] [phone] Liza Morrow MD [address] [place] [phone] Blurry vision (Primary Dx); Hearing loss, unspecified [...] Sign Reading Time Taken Comments Blood Pressure 134/81 04/18/2024 8:28 AM CDT sta nding Pulse 53 04/18/2024 8:26 AM CDT Temperature - - Respiratory Rate - - Oxygen Saturation 93% 04/18/2024 8:26 AM CDT Inhaled Oxygen Concentration - - Weight 85.7 kg (189 lb) 04/18/2024 8:26 AM CDT Height - - Body Mass Index 27.12 06/13/2019 2:25 PM SHOULDER SAWYER documented in this encounter H&P Notes * Liza Morrow MD - 04/18/2024 8:38 AM CDT DIVISION OF GERIATRIC MEDICINE DEPARTMENT OF INTERNAL MEDICINE [facility] Patient Name: Villa Zuniga Date: April 18, 2024 Presenting Complaints: Villa Zuniga is a 78 year old male with past medical history as listed below who presents today to establish care. Patient has a hx of polycythemia vera, gets therapeutic phlebotomies every 2 months at [facility]. Follows with [facility] Neurology for PD. Sustained a fall ~1 week ago. States he was standing with his walker at the dresser, looked down toput his glasses on, looked up and just started falling back, did hit his head. Presented to the ED.Work-up was unremarkable. Past Medical History: Past Medical History: Diagnosis Date Mayo esophagus BPH (benign prostatic hyperplasia) CAD (coronary artery disease) s/p PCI 2003 Dyslipidemia Hypertension Parkinson's disease (HCC) Polycythemia vera (HCC) Past Surgical History: Past Surgical History: Procedure Laterality Date Arthroplasty Bilateral CARDIAC PROCEDURE, PERCUTANEOUS Family History - Father in 85 for aging; did have a hx of Alzheimer's - Mother passed in 72 due to heart attack - Brother in 60s with unknown GI CA, hx of alcohol use disorder Social History: Social History Socioeconomic History Marital status: Spouse name: Not on file Number of children: Not on file Years of education: Not on file Highest education level: Not on file Occupational History Not on file Tobacco Use Smoking status: Former Smokeless tobacco: Never Substance and Sexual Activity Alcohol use: Not on file Drug use: Not on file Sexual activity: Not on file Other Topics Concern Not on file Social History Narrative Not on file Social Determinants of Health Financial Resource Strain: Low Risk (09/28/2022) Received from [facility] & [facility] Overall Financial Resource Strain (CARDIA) Difficulty of Paying Living Expenses: Not very hard Food Insecurity: Not on file Transportation Needs: No Transportation Needs (09/28/2022) Received from [facility] & [facility] PRAPARE - Transportation Lack of Transportation (Medical): No Lack of Transportation (Non-Medical): No Stress: Not on file Housing Stability: Not on file - Education:8th grade - Work: [employer] - Home/living situation (levels, basement). Lives with and son. Uses a walker at home. Has lifts to use two flights of stairs. - Kids (and location): 3 kids, 2 sons and 1 daughter - Smoking: Former smoker, 50+ PYH, quit in 2009 - Alcohol: denies - Drugs: denies - Social support: son - POA, health-care proxy: Son Medications and Dosing Include OTC & herbals: Current Outpatient Medications: amLODIPine (Norvasc) 5 MG tablet, Take 1 (one) tablet by mouth once daily, Disp: , Rfl: aspirin 81 MG tablet, Take 81 mg by mouth once daily. , Disp: , Rfl: atorvastatin (LIPITOR) 40 MG tablet, Take 1 Tab by mouth at bedtime, Disp: , Rfl: finasteride (PROSCAR) 5 MG tablet, Take 5 mg by mouth once daily. , Disp: , Rfl: lisinopril (Prinivil; Zestril) 20 MG tablet, Take 1 (one) tablet by mouth once daily, Disp: , Rfl: magnesium oxide (Mag-Ox) 400 MG tablet, TAKE 1 TABLET(400 MG) BY MOUTH TWICE DAILY, Disp: , Rfl: memantine (Namenda) 5 MG tablet, Take 1 (one) tablet by mouth 2 times daily, Disp: , Rfl: omeprazole (PriLOSEC) 20 MG capsule, Take 1 (one) capsule by mouth once daily, Disp: , Rfl: rivaroxaban (Xarelto) 20 MG tablet, Take 1 (one) tablet by mouth daily with food, Disp: , Rfl: Allergies (specify reaction): Allergies Allergen Reactions Ciprofloxacin Geriatric ROS - Weight changes: gained ~10lbs in the past few months; baseline in 180s - Eyes (optho exam, cataracts, other): Needs an eye exam, blurry vision - Hearing: hard of hearing - Dental (dentist visit, dentures, dysphagia): no dentures, need a dental visit - Neuro (falls, dizziness, headaches, memory): endorses dizziness, has had multiple falls -- tend to happen when isn't using a walker, memory is alright - Psych (mood): same , son reports some agitation and frustration with health decline - Cardiac (chest pain, palpitations): hx of bradycardia - Respiratory (SOB, cough): WNL, per son, snorts while walking almost as if trying to take a deep breath - GI (N/V/D, constipation, abd pain, bowel movements): WNL - (incontinence, dysuria, polyuria, nocturia, polydipsia): no UI, wears pull- ups d/t some accidents and leakage - MSK (weakness, podiatry, pain): back pain - Derm (wounds, rashes): WNL - Appetite: WNL - Sleep: WNL - Exercise: WNL - Socialization: usually home with , plays pool with son ADLs: needs assistance - Bathing, dressing, toileting, transferring, maintaining continence, feeding IADLs: dependent - Using the telephone, shopping, preparing meals, housekeeping, doing laundry, using public transportation or driving, taking medication, handling finances Driving: no Screening (04/2024): FRAIL 3, SARC 8, SNAQ 15, SLUMS 04/18/2024 11:22 AM Rapid Geriatric Assessment Fatigue: Are you fatigued? 1 Resistance: Cannot walk up one flight of stairs? 1 Aerobic: Cannot walk one block? 1 Illnesses: Do you have more than 5 illnesses? 0 Loss of weight: Have you lost more than 5% of your weight in the last 6 months? 0 FRAIL Total Score (Total points=5) 3 Strength: How much difficulty do you have in lifting and carrying 10 pounds? 2 Assistance in walking: How much difficulty do you have walking across a room? 2 Rise from a chair: How much difficulty do you have transferring from a chair or bed? 1 Climb stairs: How much difficulty do you have climbing a flight of ten stairs? 2 Falls: How many times have you fallen in the last year? 2 SARC-F TOTAL 9 My appetite is 4 Food tastes 3 When I eat, I feel full after eating 4 Normally I eat 4 SNAQ TOTAL 15 Physical Examination: Patient Vitals for the past 48 hrs: Pulse BP 04/18/24 0828 -- 134/81 04/18/24 0826 53 124/62 Body Mass Index: Body mass index is 27.12 kg/m??. Wt Readings from Last 3 Encounters: 04/18/24 85.7 kg (189 lb) 06/13/19 91.3 kg (201 lb 3.2 oz) 11/30/18 89.5 kg (197 lb 6.4 oz) Weight Loss (lbs.): n/a General: WDWN HEENT: NC/AT, PERRL, EOMI, pharynx clear, TM intact, dentition: good, pharynx clear Lungs: CTA Heart:bradycardic on exam, regular rhythm Abdomen: soft, non-tender Neurological: Alert/Oriented: x 3, CN II-XII intact Musculoskeletal: Gait: assistive device (walker). Had significant difficulty rising from chair, needing sons's assistance, could not initiate gait and sat down quickly Extremities: No C/C/E Skin: large hematoma to L lower lateral arm and dorsal L hand Assessment and Plan: #Dementia with Parkinsonian Features - Patient has 8th grade education. Dependent for ADLs and iADLs. - Established with [facility] Neurology. Per notes, suspect Lewy body dementia with Parkinsonism and prominent fluctuations (2 core features c/w probable LBD) - Underwent neuropsych testing on (08/2022); MMSE was 16/30 and Short Blessed was 18. - Per son, recent onset of hypersexuality with . Discussed with neurology and considering medroxyprogesterone - Continue memantine 5 mg - Referral to OT to assist with meal time utensil usage #Recurrent Falls - Risk factors: Age > 75 y/o, use of walker, chronic illness, deconditioning, environmental hazards. Fall likely multifactorial. - Significant difficulty rising from chair and initiating gait, became easily fatigued and sat down. Per son, has a shuffling gait. Uses a walker at home. - Given history of bradycardia, advised to follow-up with cardiology for Holter monitor; may need pacemaker - Referral to OT for home safety assessment - Fall precautions discussed #Hypertension - BP today 134/81; goal < 140/90 per JNC8 guidelines (hx of CKD) - Continue amlodipine 5 mg and lisinopril 20 mg daily #CAD s/p PCI - Continue ASA 81 mg - Defer statin therapy given age/comorbidities #Atrial Fibrillation - bradycardic on exam, regular rhythm - Continue xarelto 20 mg -- will need to discuss risks vs benefit if frequency of falls increases #T2DM - HbA1C 6.7 (12/2023); 6.3 today - Continue lifestyle management #GERD - Symptoms controlled with omeprazole 20 mg #Hearing impairment - Audiology referral placed #Blurry vision - Ophtho referral placed #Preventative Care/Health Maintenance: - Labwork: UTD - End of life planning: Will obtain advanced directive form next visit. - Immunizations - Tdap: 08/2022 - Influenza: declined - PCV: administered today - Zoster: declined - Covid booster: declined - RSV: declined RTC in 3 months Timed billin minutes spent in: Records/test review; history, exam, counseling, orders, documentation, test interpretation, care coordination, communicating with health professionals. Liza Morrow MD, [employer] Tester of Geriatric Medicine [facility] documented in this encounter Plan of Treatment Upcoming Encounters Date Type Department Care Team (Late st Contact Info) Description 07/11/2024 10:30 AM SHOULDER SAWYER Office Visit [facility] - Geriatrics [address] [place] [phone] Liza Morrow MD [address] [place] [phone] 07/16/2024 10:00 AM SHOULDER SAWYER Office Visit [facility] - Ophthalmology [address] [place] [phone] Shahriar Young MD [address] [place] [address] [place] [address] Scheduled Referrals Name Type Priority Associated Diagnoses Order Schedule Ref to Ophthalmology - [facility] Outpatient Referral Routine Blurry vision 1 Occurrences starting 04/18/2024 until 04/18/2025 Ref to Audiology - [facility] Outpatient Referral Routine Hearing loss, unspecified hearing loss type, unspecified laterality 1 Occurrences starting 04/18/2024 until 04/18/2025 Ref to Occupational Therapy - [facility] Outpatient Referral Routine Parkinsonian features 1 Occurrences starting 04/18/2024 until 04/18/2025 documented as of this encounter Procedures Procedure Name Priority Date/Time Associated Diagnosis Comments HEMOGLOBIN A1C - POINT OF CARE (AMB) [facility] Routine 04/18/2024 9:54 AM CDT Hyperglycemia documented in this encounter Results * HEMOGLOBIN A1C - POINT OF CARE (AMB) [facility] (04/18/2024 9:54 AM CDT) Hemoglobin A1c POCT 6.3 % [address] Blood BLOOD SPECIMEN / Unknown 04/18/2024 9:54 AM CDT Liza Morrow MD LAB - POINT OF CARE ORDERABLES Performing Organization Address City/State/[facility] Co de Phone Number [place] [phone] [facility] ([place], [place]), [place] [address], [facility] [phone] documented in this encounter Visit Diagnoses Diagnosis Blurry vision- Primary Other specified visual disturbances Hearing loss, unspecified hearing loss type, unspecified laterality Pneumococcal vaccine administered Hyperglycemia Other abnormal glucose Parkinsonian features Abnormal involuntary movements Moderate dementia with other behavioral disturbance, unspecified dementia type (HCC) documented in this encounter Care Teams Muffle Worker Relationship Specialty Start Date End Date Wesley Em MD PCP - General Internal Medicine 09/20/12 documented as of this encounter
--- OUTSIDE RECORDS SUMMARY | 2024-06-18 18:02 | XMS_ITS | Encounter Summary ---
Author Organization [facility] Address [address] [place] [address] Care Team Providers Care Flour Blender Helper Name Role Phone Wesley Em MD Primary Care Provider Unavail able Reason for Visit * Reason Comments Establish Care Hearing Loss Encounter Details Date Type Department Care Team (Latest Contact Info) Description 05/27/2024 2:00 PM TRANSMISSION AND PROTECTION ENGINEER Office Visit [facility] - ENT [address] [place] [address], [place] [phone] Rick Roque MD [address] [place] [address] [place] [address] Sensorineural hearing loss (SNHL) of both ears (Primary Dx) Social History Tobacco Use Types Packs/Day Years [...] Comments Blood Pressure 125/71 05/27/2024 2:11 PM TRANSMISSION AND PROTECTION ENGINEER Pulse 49 05/27/2024 2:11 PM TRANSMISSION AND PROTECTION ENGINEER Temperature - - Respiratory Rate - - Oxygen Saturation 94% 05/27/2024 2:11 PM TRANSMISSION AND PROTECTION ENGINEER Inhaled Oxygen Concentration - - Weight 83.5 kg (184 lb) 05/27/2024 2:11 PM TRANSMISSION AND PROTECTION ENGINEER Height 172.7 cm (5' 8 ) 05/27/2024 2:11 PM TRANSMISSION AND PROTECTION ENGINEER Body Mass Index 27.98 05/27/2024 2:11 PM TRANSMISSION AND PROTECTION ENGINEER documented in this encounter Patient Instructions * Patient Instructions* Joy Kenney - 05/27/2024 2:12 PM TRANSMISSION AND PROTECTION ENGINEER Thank you for visiting [facility] Otolaryngology - Head & Neck Surgery. We appreciate your confidence in allowing us to participate in your health care. You may receive a survey about your visit with us today. Making our patients happy isn???t just happy talk; it???s ourmission. Please tell us if we made the right impression on you- and how we can serve you better. Please SAVE the information below, it will assist you when it???s time for you to contact us. To MAKE - CHANGE - CANCEL an office appointment If you become ill, need to be seen before your next scheduled appointment, or need to cancel or reschedule an appointment, please call our office at [phone] Monday through Monday from 8:00 am to4:30 pm. You can also request a routine appointment through your [employer] account. Prescription Refills Contact your pharmacy to request all refills. The pharmacy will need to fax the request to us at . Please allow a minimum of 48-72 hours for your prescription to be completed. Medical Emergency / After Hours Contact Information If you have a medical emergency, please call 911 or go to the nearest emergency room. For urgent medical calls, which cannot wait until the office opens, please call the medical exchange at and ask the square shear operator to page the ENT physician mineral wool insulation supervisor. *Caller ID blocking service will need to be turned off for your call to be returned. We also specialize in Hearing Aids, Allergy testing, swallowing disorders, voice problems, cancer diagnosis, and so much more. Visit our website at [email or web address] for information about our practice and an interactive health encyclopedia. SMISSION AND PROTECTION ENGINEER documented in this encounter Progress Notes * Rick Roque MD - 05/27/2024 2:00 PM CST History of Present Illness: 78 year old with a h/o AU SNHL and multiple complex medical problems Here today with his son. Travels in a wheelchair. Has noticed increased difficulty hearing and understanding over time. No ear infections or drainage from the ear. 07/12/22 [facility] ANGIO HEAD AND NECK Order: [id number] Impression 1. No acute intracranial findings. 2. 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 Unchanged mild to moderate multifocal intracranial atherosclerosis. 3. No intracranial aneurysm, large vessel occlusion or vascular malformation. No other inciting exacerbating or alleviating factors. Review of Systems: ROS: Negative times 13 (Including General, Psych, Neuro, HEENT, Resp, CV, GI, , Musculoskeletal, Derm,Heme/Lymph), except as noted in EPIC and reviewed by me. Pertinent issues include: No notes on file Past Medical History Past Medical History: Diagnosis Date Myao esophagus BPH (benign prostatic hyperplasia) CAD (coronary artery disease) s/p PCI 2003 Dementia without behavioral disturbance (HCC) Dyslipidemia Hypertension Parkinsonian features Polycythemia vera (HCC) Medications Current Outpatient Medications Medication Sig Dispense Refill amLODIPine (Norvasc) 5 MG tablet Take 1 (one) tablet by mouth once daily aspirin 81 MG tablet Take 81 mg by mouth once daily. atorvastatin (LIPITOR) 40 MG tablet Take 1 Tab by mouth at bedtime docusate sodium (Colace) 100 MG capsule Take by mouth once daily finasteride (PROSCAR) 5 MG tablet Take 5 mg by mouth once daily. lisinopril (Prinivil; Zestril) 20 MG tablet Take 1 (one) tablet by mouth once daily magnesium oxide (Mag-Ox) 400 MG tablet TAKE 1 TABLET(400 MG) BY MOUTH TWICE DAILY memantine (Namenda) 5 MG tablet Take 1 (one) tablet by mouth 2 times daily omeprazole (PriLOSEC) 20 MG capsule Take 1 (one) capsule by mouth once daily rivaroxaban (Xarelto) 20 MG tablet Take 1 (one) tablet by mouth daily with food rivaroxaban (Xarelto) 20 MG tablet Take 1 (one) tablet by mouth daily with food No current facility-administered medications for this visit. Allergies Ciprofloxacin Social History Social History Socioeconomic History Marital status: Tobacco Use Smoking status: Former Smokeless tobacco: Never Family History No family history on file. Vitals BP 125/71 (BP Location: Left arm, Patient Position: Sitting, BP Cuff Size: Adult) Pulse 49 Ht 1.727 m (5' 8 ) Wt 83.5 kg (184 lb) SpO2 94% Body mass index is 27.98 kg/m??. Physical Exam: Constitutional: Alert, No acute Distress; Well developed/well nourished Neuro:cranial nerves III-XII grossly intact CV/Pulm: Normal respirations and peripheral pulses. Eyes: PERRL, EOMI Face/Skin: normal appearance, no lesions/masses Nose: patent bilaterally, Turbinates intact, Mucosal membranes intact Mouth and oropharynx: symmetric tongue mobility, no lesions/masses/ulcers Neck: supple, no lymphadenopathy, no masses Voice: strong MusculoSkeletal: moves all extremities well Right ear: Ear canal and drum are normal. Middle ear space aerated. No mastoid tenderness. Left ear: Ear canal and drum are normal. Middle ear space aerated. No mastoid tenderness. Assessment and Plan: AU SNHL. Worse in the high frequencies. He should protect his hearing from noise Audiogram dated May 27, 2024 independently reviewed by me today, explained to family and copy provided. Given his multiple medical issues, they are not sure they want to pursue hearing aids. I will see him back on an as needed basis. Rick Roque MD Professor of Otology, Neurotology and Skull Base Surgery Department of Otolaryngology SMISSION AND PROTECTION ENGINEER documented in this encounter Plan of Treatment Upcoming Encounters Date Type Department Care Team (Late st Contact Info) Description 07/11/2024 10:30 AM TRANSMISSION AND PROTECTION ENGINEER Office Visit [facility] - Geriatrics [address] [place] [phone] Liza Morrow MD [address] [place] [phone] 07/16/2024 10:00 AM TRANSMISSION AND PROTECTION ENGINEER Office Visit [facility] - Ophthalmology [address] [place] [phone] Shahriar Young MD [address] [place] [address] [place] [address] documented as of this encounter Visit Diagnoses Diagnosis Sensorineural hearing loss (SNHL) of both ears- Primary documented in this encounter Care Teams Flour Blender Helper Relationship Specialty Start Date End Date Wesley Em MD PCP - General Internal Medicine 09/20/12 documented as of this encounter
--- OUTSIDE RECORDS SUMMARY | 2024-06-18 18:02 | XMS_ITS | Encounter Summary ---
Author Organization [facility] Address [facility] [facility] [place] [address] Care Team Providers Care Non Profit Director Name Role Phone Wesley Em MD Primary Care Provider Unavail able Reason for Referral * Cardiac (Routine) - Closed Specialty Diagnoses / Procedures Referred By Contac t Referred To Contact Radiology Diagnoses CAD in tanacross artery Stented coronary artery Dyslipidemia Essential hypertension, benign Procedures STRESS TEST LEXISCAN (NUCLEAR) [place] [address] [place] [address] [facility] [id number] [facility] [address], [address] [place] [address] Referral ID Status Reason Start Date Expiration Date Visits Re quested Visits Authorized [id number] Closed 11/18/2015 05/16/2016 2 2 Reason for Visit * Reason Comments Follow-up 6 mo Encounter Details Date Type Department Care Team (Late st Contact Info) Description 11/18/2015 2:45 PM CDT Office Visit [facility] Medical [facility] [address] [place] [address] [place] [address] [place] [address] CAD in tanacross artery (Primary Dx); Stented coronary artery; Dyslipidemia; Essential hypertension, benign Social History Tobacco Use Types Packs/Day Years [...] Sign Reading Time Taken Comments Blood Pressure 156/83 11/18/2015 3:14 PM CDT Pulse 79 11/18/2015 3:14 PM CDT Temperature - - Respiratory Rate 16 11/18/2015 3:14 PM CDT Oxygen Saturation - - Inhaled Oxygen Concentration - - Weight 89.4 kg (197 lb 3.2 oz) 11/18/2015 3:14 P M CDT Height 175.3 cm (5' 9 ) 11/18/2015 3:14 PM CDT Body Mass Index 29.12 11/18/2015 3:14 PM CDT documented in this encounter Patient Instructions * Patient Instructions* Garth Millan MD - 11/18/2015 3:44 PM CDT Schedule stress test documented in this encounter Progress Notes * Garth Millan MD - 11/18/2015 3:40 PM CDT Cardiology Follow up Visit PCP: [...] symptoms Dermatological ROS: negative PHYSICAL EXAM: BP 156/83 mmHg Pulse 79 Resp 16 Wt 89.449 kg (197 lb 3.2 oz) BMI 29.11 kg/m2 General appearance: alert, cooperative, no distress [...] CHOL, TRIG, HDL, LDLCALC in the last 01955 hours. ASSESSMENT/PLAN: 1. CAD: doing well post PCI. Continue current regimen and obtain stress test. 2. Hypertension: usually well controlled 3. Dyslipidemia: followed by Dr Em. 4. DM 5. Polycythemia Vera. 6. Follow up in 6 months. Garth Millan MD 11/18/2015 3:40 PM documented in this encounter Plan of Treatment Upcoming Encounters Date Type Department Care Team (Late st Contact Info) Description 07/11/2024 10:30 AM STABLE CLEANER Office Visit [facility] - Geriatrics [address] [place] [address], [place] [phone] Liza Morrow MD [address] [place] [phone] 07/16/2024 10:00 AM STABLE CLEANER Office Visit [facility] - Ophthalmology [address] [place] [phone] Shahriar Young MD [address] [place] [address] [place] [phone] documented as of this encounter Visit Diagnoses Diagnosis CAD in tanacross artery- Primary Coronary atherosclerosis of [place] coronary artery Stented coronary artery Postsurgical percutaneous transluminal coronary angioplasty status Dyslipidemia Other and unspecified hyperlipidemia Essential hypertension, benign documented in this encounter Care Teams Non Profit Director Relationship Specialty Start Date End Date Wesley Em MD PCP - General Internal Medicine 09/20/12 documented as of this encounter
--- OUTSIDE RECORDS SUMMARY | 2024-06-18 18:02 | XMS_ITS | Encounter Summary ---
Author Organization [facility] Address [address] [place] [address] Care Team Providers Care Pool Table Mechanic Name Role Phone Wesley Em MD Primary Care Provider Unavail able Reason for Visit * Reason Onset Date Comments Reschedule Appointment 06/13/202406/13-Lef t message of Hector's 06/13 cancellation-dept will call back to reschedule per [id number] Encounter Details Date Type Department Care Team (Late st Contact Info) Description 06/13/2024 Telephone [facility] - Centralized Scheduling [address] [place] [phone] Shahriar Young MD [address] [facility] [place] [phone] Reschedule Appointment (06/13-Left message of Hector's 06/13 cancellation-dept will call back to reschedule per [facility]) Social History Tobacco Use Types Packs/Day Years [...] encounter Miscellaneous Notes * Telephone Encounter - Alia Matthews - 06/13/2024 8:06 AM CST My name is Adrianna, I am a [facility] Machine Cloth Trimmer this message is regarding your appointment that was scheduled for 06/13. Dr. Young will not be available for that appointment. Please contact us at [phone] to be rescheduled. [facility] you [facility] IFIED SHORTHAND REPORTER documented in this encounter Plan of Treatment Upcoming Encounters Date Type Department Care Team (Late st Contact Info) Description 07/11/2024 10:30 AM CERTIFIED SHORTHAND REPORTER Office Visit [facility] - Geriatrics [address] [place] [phone] Liza Morrow MD [address] [place] [phone] 07/16/2024 10:00 AM CERTIFIED SHORTHAND REPORTER Office Visit [facility] - Ophthalmology [address] [place] [phone] Shahriar Young MD [address] [place] [address] [place] [phone] documented as of this encounter Visit Diagnoses Not on filedocumented in this encounter Care Teams Pool Table Mechanic Relationship Specialty Start Date End Date Wesley Em MD PCP - General Internal Medicine 09/20/12 documented as of this encounter
--- OUTSIDE RECORDS SUMMARY | 2024-06-18 18:02 | XMS_ITS | Encounter Summary ---
Author Organization [facility] Address [facility] [place] [address] Care Team Providers Care Respiratory Therapy Assistant Name Role Phone Wesley Em MD Primary Care Provider Unavail able Reason for Visit * Auth/Cert - Closed Specialty Diagnoses / Procedures Referred By Jomar t Referred To Contact Diagnoses stint [id number] Referral ID Status Reason Start Date Expiration Date Visits Re quested Visits Authorized [id number] Closed 1 1 Encounter Details Date Type Department Care Team (Latest Contact Info) Description 09/20/2012 1:04 PM CDT - 09/21/2012 2:57 PM CDT Hospital Encounter DP [address]N [facility] [address] [place] [address] [place] [id number] [address] Cardiac Catheterization Discharge Disposition: Home or Self Care Social [...] Sign Reading Time Taken Comments Blood Pressure 107/69 09/21/2012 11:22 AM CDT Pulse 87 09/21/2012 11:22 AM CDT Temperature 36.4 ??C (97.6 ??F) 09/21/2012 11:22 AM C DT Respiratory Rate 16 09/21/2012 11:22 AM CDT Oxygen Saturation 96% 09/21/2012 11:22 AM CDT Inhaled Oxygen Concentration 98% 09/20/2012 1 :45 PM CDT Weight 100.7 kg (222 lb) 09/20/2012 11:00 PM CDT Height 172.7 cm (5' 8 ) 09/20/2012 5:18 PM CDT Body Mass Index 33.75 09/20/2012 5:18 PM CDT documented in this encounter Discharge Summaries * Juliano Lancaster MD - 09/21/2012 8:36 AM CDT Physician Discharge Summary Patient Name Verna Zuniga Admit date: 09/20/2012 Discharge date: 09/21/2012 Admitting Physician: Trista Millan MD Attending Physician: Trista Millan MD Discharge Physician: Juliano Lancaster MD Admission Diagnosis: CAD with recent PCI of CFX two weeks ago also found to have residual heavily calcified RCA stenosis. Discharge Diagnoses CAD with recent PCI of circumflex two weeks ago Successful rotational atherectomy and implantation of 3.0 x 26 mm Resolute DELMI in proximal RCA Consults None Diagnostic Studies Component Name 09/21/12 0520 SODIUM 141 POTASSIUM 2.7* CHLORIDE 101 CO2 28 BUN 16 CREATININE 0.77 GLUCOSE 154* CALCIUM 9.2 Component Name 09/21/12 0520 WBC 6.6 HGB 13.1 HCT 35.7 PLTCOUNT 220 Treatments PCI, rotational atherectomy, stent placement Procedures Cardiac Cath: 09/20/12 Findings: PCI: Via RFA 7fr 7fr FR4 guide Angiomax 90% proximal RCA stenosis heavily calcified Lesion crossed with PT2 wire and 1.5 mm balloon Wire exchanged into Roto Floppy wire 1.25 mm portia advanced and multiple passes performed at 180,000 rpm Lesion recrossed with PT2 Dilated with 2.5 mm balloon Then stented with 3.0 x 26 mm Resolute DELMI 0% residual stenosis Preserved MIGUEL ANGEL III flow Complications: None. Estimated blood loss: <50 ml. Specimens: N/A Hemostasis device: Angioseal. Post-procedure Summary: 1. Successful PCI, rotational atherectomy, and implantation of 3.0 x 26 mm Resolute DELMI in proximalRCA Hospital Course Mr. Zuniga presented electively to undergo staged PCI to the RCA. He had successful PCI with rotational atherectomy and implantation of 3.0 x 26 mm Resolute drug-eluting stent to the proximal RCA. His potassium was noted to be low at 2.7 this morning, therefore potassium supplements were ordered (to be given prior to discharge) and his HCTZ was changed to Spironolactone by Dr. Lancaster. He will be discharged home on medications as below and will follow up with Dr. Millan in the office Nov 06 2012. Condition at discharge: stable Disposition: Home Code Status At Discharge Full Code Patient Instructions Discharge Medication List As of 09/21/2012 8:36 AM START taking these medications Instructions Authorizing Provider clopidogrel 75 MG tablet Commonly known as: plaVIX Take 1 Tab by mouth once daily. Juliano Lancaster spironolactone 25 MG tablet Commonly known as: ALDACTONE Take 1 Tab by mouth once daily. Juliano Lancaster CONTINUE taking these medications Instructions Authorizing Provider aspirin 81 MG tablet Take 81 mg by mouth once daily. cloNIDine 0.2 MG tablet Commonly known as: CATAPRES Take 0.2 mg by mouth 2 times daily. finasteride 5 MG tablet Commonly known as: PROSCAR Take 5 mg by mouth once daily. fluticasone propionate 50 MCG/ACT nasal spray Commonly known as: FLONASE [place] 2 Sprays into each nostril once daily. gemfibrozil 600 MG tablet Commonly known as: LOPID Take 600 mg by mouth 2 times daily before meals. metFORMIN 500 MG tablet Commonly known as: GLUCOPHAGE Take 500 mg by mouth 2 times daily with morning and evening meal. metoprolol succinate XL 24hr 25 MG tablet Commonly known as: TOPROL XL Take 25 mg by mouth 2 times daily. omeprazole 20 MG capsule Commonly known as: PRILOSEC Take 20 mg by mouth 2 times daily before meals. pravastatin 40 MG tablet Commonly known as: PRAVACHOL Take 40 mg by mouth once daily. quinapril 40 MG tablet Commonly known as: ACCUPRIL Take 40 mg by mouth once daily. 1/2 tab daily STRESS FORMULA PO Take by mouth 2 times daily. tamsulosin CR 24hr 0.4 MG capsule Commonly known as: FLOMAX Take 0.4 mg by mouth once daily. Take 30 minutes after a meal at the same time each day. Unicomplex-M Tabs Take by mouth once daily. STOP taking these medications hydrochlorothiazide 25 MG tablet Discharge Procedure Orders MAY SHOWER You may shower 24 hours after your procedure. NO TUB BATH Shower rather than tub bathe for 5 days to prevent infection. Order Specific Question Answer Comments For how long? Five days DO NOT DRIVE Order Specific Question Answer Comments For how long? One day NO STAIR CLIMBING Order Specific Question Answer Comments For how long? One day RESUME NORMAL ACTIVITY Resume normal activity in 24 hours. No moderate or heavy exertion for 24 hours after the procedure. NO LIFTING OVER Order Specific Question Answer Comments How many pounds? 10 For how long? One week AVOID STRENUOUS ACTIVITY Avoid strenuous activities and exercise for one week following procedure. Do not bend or strain effected extremity. DRESSING INSTRUCTIONS May remove dressing 24 hours post procedure, cleanse with soap and water. No ointments, powders, orcreams to puncture site. Order Specific Question Answer Comments Cover puncture site? No-it is not necessary to cover the puncture site. MONITOR PUNCTURE SITE Observe the site for 7 days and report any of the following to your doctor: 1) increased bruising 2) fever 3) warmth, redness, or drainage from the puncture site 4) pain that will not go away. PATIENT TO CALL 911 If you have chest pain with or without radiation to your arms or neck or chest pain lasting more than 15 minutes or that does not go away after using the medicine as directed by your physician. PATIENT TO CALL 911 If you start actively bleeding, call immediately and hold pressure at site. PATIENT TO CALL 911 If you are experiencing other symptoms of a heart attack, such as trouble breathing, nausea and vomiting, sweating and light headedness. FOLLOW UP With Dr. Millan (condenser cleaner) Monday at 11:45am-[place] Office [phone]; [address] [facility] , [address], [facility] [address]. If your insurance requires a referral please obtain from your primary care physician prior to your office appointment. Bring all medications with you to your appointment. SPECIAL DIET INSTRUCTIONS TO INCLUDE... Cardiac Diabetic diet DISCHARGE MEDICATION INSTRUCTIONS Restart Metformin 48 hours post procedure (may restart tomorrow Friday 09/22 evening dose) Discharge time: less than 30 minutes. Juliano Lancaster MD CC: Dr. Trista Em documented in this encounter Discharge Instructions * Discharge Instructions* Alyssa Brito RN - 09/21/2012 2:19 PM CDT If you have any questions regarding your home medications/prescriptions, please contact your primary physician. Discharge Procedure Orders MAY SHOWER You may shower 24 hours after your procedure. NO TUB BATH Shower rather than tub bathe for 5 days to prevent infection. Order Specific Question Answer Comments For how long? Five days DO NOT DRIVE Order Specific Question Answer Comments For how long? One day NO STAIR CLIMBING Order Specific Question Answer Comments For how long? One day RESUME NORMAL ACTIVITY Resume normal activity in 24 hours. No moderate or heavy exertion for 24 hours after the procedure. NO LIFTING OVER Order Specific Question Answer Comments How many pounds? 10 For how long? One week AVOID STRENUOUS ACTIVITY Avoid strenuous activities and exercise for one week following procedure. Do not bend or strain effected extremity. DRESSING INSTRUCTIONS May remove dressing 24 hours post procedure, cleanse with soap and water. No ointments, powders, orcreams to puncture site. Order Specific Question Answer Comments Cover puncture site? No-it is not necessary to cover the puncture site. MONITOR PUNCTURE SITE Observe the site for 7 days and report any of the following to your doctor: 1) increased bruising 2) fever 3) warmth, redness, or drainage from the puncture site 4) pain that will not go away. PATIENT TO CALL 911 If you have chest pain with or without radiation to your arms or neck or chest pain lasting more than 15 minutes or that does not go away after using the medicine as directed by your physician. PATIENT TO CALL 911 If you start actively bleeding, call immediately and hold pressure at site. PATIENT TO CALL 911 If you are experiencing other symptoms of a heart attack, such as trouble breathing, nausea and vomiting, sweating and light headedness. FOLLOW UP With Dr. Millan (condenser cleaner) Monday at 11:45am-[place] Office [phone]; [address], [address], [facility] [address]. If your insurance requires a referral please obtain from your primary care physician prior to your office appointment. Bring all medications with you to your appointment. SPECIAL DIET INSTRUCTIONS TO INCLUDE... Cardiac Diabetic diet DISCHARGE MEDICATION INSTRUCTIONS Restart Metformin 48 hours post procedure (may restart tomorrow Saturday 3/23 evening dose) Please avoid smoking and second hand smoke. The following belongings have been returned to you: Clothing: Yes, With Patient: Shirt;Pants;Jacket/Coat;Footwear Jewelry: None Electronic Items: None Dentures/Retainers: None Visual Aids: Yes Hearing Aids: None Equipment with Patient: None, Equipment At Home: Blood Glucose Monitor (does not check blood sugars) Home Medications: Yes, Secured: Yes (with security) Miscellaneous Items: None Monetary Items: None .WEIGHT MONITORING - If you have heart failure, weigh yourself every morning. Contact your physician if your weight increases by 3 pounds in 1 day OR 5 pounds in 1 week. WHAT TO DO IF SYMPTOMS WORSEN - Contact your physician if you have shortness of breath/difficulty breathing, or any swelling of your legs, ankles or feet. IF YOU EXPERIENCE NEW STROKE SYMPTOMS, CALL 911 IMMEDIATELY - Symptoms of stroke include any of the following: Trouble talking/slurred speech, arm/leg/hand/facial weakness on one side, loss of balance or coordination or sudden loss of vision. - Modifiable risk factors for stroke include, but are not limited to: overweight/obesity, sedentarylifestyle/inactivity, alcohol consumption, illicit drug use, smoking, hypertension, high cholesterol, diabetes and atrial fibrillation. The discharge and medication instructions have been reviewed with me and my questions have been answered. I have received a copy of the discharge instructions. 09/21/2012 * Discharge Instructions* Document, Scanned - 09/22/2012 12:30 PM CDT documented in this encounter Medications at Time of Discharge Medication Sig Dispensed Refills Start Date End Date aspirin 81 MG tablet Take 81 mg by mouth once daily. finasteride (PROSCAR) 5 MG tablet Take 5 mg by mouth once daily. B Xxuclsa-X-Hvnhq Acid (STRESS FORMULA PO) Take by mouth 2 times daily. 04/18/2024 cloNIDine (CATAPRES) 0.2 MG tablet Take 0.2 mg by mouth 2 times daily. 06/01/2018 clopidogrel (PLAVIX) 75 MG tabletIndications:CAD (coronary artery disease) Take 1 Tab by mouth once daily. 30 Tab 11 09/21/2012 04/18/2024 fluticasone propionate (FLONASE) 50 MCG/ACT nasal spray [place] 2 Sprays into each nostril once daily. 05/30/2017 gemfibrozil (LOPID) 600 MG tablet Take 600 mg by mouth 2 times daily before meals. 05/24/2016 metFORMIN (GLUCOPHAGE) 500 MG tablet Take 500 mg by mouth 2 times daily with morning and evening meal. 05/30/2017 metoprolol succinate XL 24hr (TOPROL XL) 25 MG tablet Take 25 mg by mouth 2 times daily. 04/18/2024 Multiple Vitamins-Minerals (UNICOMPLEX-M) TABS Take by mouth once daily. 05/30/2017 omeprazole (PRILOSEC) 20 MG capsule Take 20 [...] as of this encounter Progress Notes * Millicent Jacobs RN - 09/21/2012 3:43 PM CDT CM reviewed chart. Patient was discharged PRIOR to CM interview. No apparent needs identified at this time. Millicent Jacobs RN, BSN manager people [facility] [phone] * Alyssa Brito RN - 09/21/2012 3:01 PM CDT Shift summary: Pt calm and cooperative. SR on tele. A&Ox4. VSS. No complaints of pain. K 2.7 - 30mEq given. R groin - shadow drainage, minimal bruising - no change. Call light within reach. Side rails upx2. Bedlow & locked. Significant other at bedside. IV discontinued. D/C to home. * Lolis Montgomery, RD/LD - 09/21/2012 9:13 AM CDT Nutrition: Nutrition consult completed. Cardiac Diet and carbohydrate consistent diet education discussed. SeeEducation section for details. * Jovana Sandhu RN - 09/21/2012 8:59 AM CDT Post cardiac cath instructions discussed with patient (ie: ok to take shower this evening, no tub baths for 5 days. Watch for redness or swelling at puncture site and call office with any concerns). Instructed Mr. Zuniga to restart Metformin tomorrow evening (48 hours post procedure). Appointment card given to patient to f/u with Dr. Millan 11/06/12 at 1145 in the [place] office. Patient verbalized understanding. * Chantel Willis RN - 09/21/2012 7:22 AM CDT Cardiopulmonary educational materials presented and reviewed with patient and spouse, please see education section of chart for specifics, Topics include risk factor modification, stent/cath education. He is interested in attending outpatient cardiac rehab closer to his home, he will check with hisphysician. * Areli Tovar RN - 09/21/2012 6:41 AM CDT Shift Summary: Pt had no complaints throughout the night. Rt groin has minimal bruising. 2+ rt pedal pulse. VSS. Tele stable with NSR. at BSD. NO additional needs voiced. Call light in reach. Will cont to monitor. * Areli Tovar RN - 09/20/2012 8:20 PM CDT Pts came to nurses station stating pt wants to get up to use the bathroom to have a BM. Went to pts BSD and explained that he is on bedrest until midnight and he could cause his cath site to bleed if he ambulates too early. Pt refuses to listen and walks to BR regardless of warning. After pt back to bed Rt groin displays shadowing drainage. Pedal pulse is +2 bilaterally. Will con't to monitor. * Babita Hill RN - 09/20/2012 6:36 PM CDT Shift Highlight Reassessed right groin no s/sx of bleeding to right groin angioseal in place bilateral pedal pulsespalpable. * Babita Hill RN - 09/20/2012 5:39 PM CDT Shift Highlight Patient admitted to room 401 awake and alert family at bedside, placed on laboratory monitor SR on the monitor patient right groin site dry and intact with angioseal dressing in place, marked were oozing occurred prior to admission to floor, bilateral pedal pulses palpable. No c/o pain pain aware ofbedrest and keeping leg straight * Trista Millan MD - 09/20/2012 2:53 PM CDT History and Physical and Pre-Sedation Assessment Patient's Primary Care Physician: Wesley Em Name: Verna Zuniga Age: 66 y.o. Date:09/20/20122:54 PM Pre-procedure diagnosis: Coronary artery syndrome History and physical reviewed: Yes. Change in H&P: No Planned Procedure: Percutaneous Coronary Intervention I have reviewed the medical, surgical, family, and social histories Allergies Allergen Reactions ??? Ciprofloxacin Data No results found for this basename: SODIUM:3,POTASSIUM:3,CHLORIDE:3,CO2:3,BUN:3,CREATININE:3,GLUCOSE:3,CALCIUM:3 in the last 80428 hours No results found for this basename: WBC:3,HGB:3,HCT:3,PLTCOUNT:3 in the last 72685 hours No results found for this basename: INR:3 in the last 31882 hours PRE-SEDATION PHYSICIAN ASSESSMENT Medications, vital signs and labs results reviewed prior to procedure: Yes SEDATION PLAN: moderate ASA Physical Status Classification: 3 (A patient with severe systemic disease) Patient airway and condition has been evaluated immediately prior to sedation and/or analgesia: Yes Trista Millan MD 09/20/2012 2:54 PM documented in this encounter H&P Notes * Document, Scanned - 09/22/2012 12:30 PM CDT * Trista Millan MD - 09/20/2012 2:50 PM CDT Reason for Evaluation: chest pain, CAD. History of Present Illness: The patient is a very pleasant 66 y.o. male with a history including CAD, recent abnormal stress test, PCI of CFX two weeks ago, found to have residual heavily calcified RCA stenosis. He presents forstaged PCI. Prior Medical History: Past Medical History Diagnosis Date ??? CAD (coronary artery disease) ??? Dyslipidemia ??? Hypertension ??? DM (diabetes mellitus) ??? BPH (benign prostatic hyperplasia) Prior Surgical History: No past surgical history on file. Home Medications: Prior to Admission medications Medication Sig Start Date End Date Taking? Authorizing Provider aspirin 81 MG tablet Take 81 mg by mouth once daily. Yes Historical Provider, cloNIDine (CATAPRES) 0.2 MG tablet Take 0.2 mg by mouth 2 times daily. Yes Historical Provider, finasteride (PROSCAR) 5 MG tablet Take 5 mg by mouth once daily. Yes Historical Provider, tamsulosin CR 24hr (FLOMAX) 0.4 MG capsule Take 0.4 mg by mouth once daily. Take 30 minutes after ameal at the same time each day. Yes Historical Provider, fluticasone propionate (FLONASE) 50 MCG/ACT nasal spray [place] 2 Sprays into each nostril once daily. Yes Historical Provider, hydrochlorothiazide (HYDRODIURIL) 25 MG tablet Take 25 mg by mouth once daily. Yes Historical Provider, gemfibrozil (LOPID) 600 MG tablet Take 600 mg by mouth 2 times daily before meals. Yes Historical Provider, metFORMIN (GLUCOPHAGE) 500 MG tablet Take 500 mg by mouth 2 times daily with morning and evening meal. Yes Historical Provider, metoprolol succinate XL 24hr (TOPROL XL) 25 MG tablet Take 25 mg by mouth 2 times daily. Yes Historical Provider, omeprazole (PRILOSEC) 20 MG capsule Take 20 mg by mouth 2 times daily before meals. Yes Historical Provider, pravastatin (PRAVACHOL) 40 MG tablet Take 40 mg by mouth once daily. Yes Historical Provider, quinapril (ACCUPRIL) 40 MG tablet Take 40 mg by mouth once daily. 1/2 tab daily Yes Historical Provider, B Wfxwnws-P-Tmzvu Acid (STRESS FORMULA PO) Take by mouth 2 times daily. Yes Historical Provider, Multiple Vitamins-Minerals (UNICOMPLEX-M) TABS Take by mouth once daily. Yes Historical Provider, Allergies: Allergies Allergen Reactions ??? Ciprofloxacin Social History: History Substance Use Topics ??? Smoking status: Former Smoker ??? Smokeless tobacco: Not on file ??? Alcohol Use: Not on file Family History: No family history on file. Review of Symptoms: The patient reports angina, but denies exertional dyspnea, orthopnea, PND, palpitations, lower extremity edema, claudication, near-syncope or syncope, TIA, GI or symptoms. Physical Exam: BP 122/86 Pulse 78 Temp 97.4 ??F Resp 20 Wt 222 lb (100.699 kg) BMI 33.76 kg/m2 General appearance: alert, cooperative, no distress Lungs: breath sounds normal and symmetric; no rales or wheezes Heart: regular rhythm, normal S1 and S2, without murmurs, gallops or rubs Abdomen: soft without mass, non-tender, with normal bowel sounds Extremities: no clubbing, cyanosis or edema My review of labs, imaging, notes and other tests is significant for No results found for this basename: WBC:3,HGB:3,HCT:3,PLTCOUNT:3 in the last 04608 hours No results found for this basename: SODIUM:3,POTASSIUM:3,CHLORIDE:3,CO2:3,BUN:3,CREATININE:3,GLUCOSE:3,CALCIUM:3 in the last 72368 hours No results found for this basename: TROPONIN:3 in the last 74726 hours No results found for this basename: INR:3 in the last 24110 hours No results found for this basename: BNP in the last 46516 hours No results found for this basename: DIGOXIN:3 in the last 50425 hours No results found for this basename: CHOL:3,TRI,HDL:3,LDLCA in the last 02813 hours No results found for this basename: TSH:3 in the last 41432 hours Assessment and Plan: 1. CAD, with residual RCA stenosis: I have discussed with the patient all options, including risks and benefits. He wishes to proceed with PCI. 2. Hypertension 3. Dyslipidemia. I appreciate the opportunity to participate in the care of this very pleasant patient. We will continue to follow with you. Trista Millan MD 09/20/2012 2:53 PM documented in this encounter Procedure Notes * Document, Scanned - 09/22/2012 12:30 PM CDTAssociated Order(s): LAB RESULTS ORDER * Document, Scanned - 09/22/2012 12:30 PM CDTAssociated Order(s): CARDIAC PROCEDURE ORDER * Document, Scanned - 09/22/2012 12:30 PM CDTAssociated Order(s): CARDIAC EKG ORDER * Document, Scanned - 09/22/2012 12:30 PM CDTAssociated Order(s): CARDIAC RHYTHM STRIP ORDER * Document, Scanned - 09/22/2012 12:30 PM CDTAssociated Order(s): CARDIAC STRESS TEST ORDER * Trista Millan MD - 09/20/2012 6:11 PM CDTAssociated Order(s): CARDIAC CATH CONSULT [facility] CARDIAC CATHETERIZATION PATIENT: VERNA ZUNIGA MR#: [id number] ADMIT DATE: 09/20/2012 CSN: [id number] PROCEDURE DATE: 09/20/2012 : 1945 PHYSICIAN: Trista Millan MD ROOM: [facility], [facility] REFERRING PHYSICIAN: TRISTA MILLAN INDICATION: The patient is a very pleasant 66-year-old gentleman with history of coronary artery disease, a recent markedly abnormal stress test in the setting of dyspnea and angina. Coronary angiography in [place], [place] 2 weeks ago revealed severe 2-vessel coronary artery disease of the proximal circumflex and the proximal right coronary artery. At that time, he underwent successful stenting of the proximal circumflex with unsuccessful attempts at crossing a heavily calcified, highly tortuous proximal right coronary lesion. He presents today for staged PCI. PROCEDURES PERFORMED: 1. Percutaneous coronary intervention. 2. Rotational atherectomy. 3. Stent plantation. 4. Percutaneous vascular access closure. PROCEDURE TECHNIQUE: After informed consent, the patient was brought to cardiac catheterization laboratory and prepped and draped in the usual sterile manner. Vascular access was obtained via right femoral artery using a 7- Cameroonian sheath advanced over the wire without difficulty after local anesthesia was applied using 1% lidocaine. The right coronary artery was initially cannulated using a 7-Cameroonian AL-0.75 guide catheter, which was replaced with a 7-Cameroonian FR4 guide catheter for better guide support. The patient received Angiomax bolus and infusion was started. Initial angiography confirmed a 90% heavily calcified proximal right coronary stenosis prior to a sharply angulated tortuous segment. The patient received Angiomax bolus and infusion was started. The lesion was crossed using a PT2 guidewire with the back up of a 1.5 mm balloon, and it was a later exchanged into a Roto floppy guidewire. A 1.25 mm rotational atherectomy bur was advanced and multiple passes performed at 180,000 r.p.m. with adequate debulking of the lesion. The lesion was then re-crossed using a PT2 guidewire and was predilated using a 2.5 mm balloon followed by implantation of a 3.0 x 26 mm Resolute drug-eluting stent deployed at high pressure with zero percent residual stenosis and excellent result on subsequent angiography with preserved MIGUEL ANGEL grade 3 flow in the vessel. PROCEDURE COMMENTS: The patient tolerated the procedure well without complications. At the end of the procedure, right femoral artery puncture site hemostasis was achieved using an 8-Cameroonian Angio-Seal device without complications. CONCLUSION: 1. Successful percutaneous coronary intervention, rotational atherectomy, and implantation of a 3.0 x 26 mm Resolute drug-eluting stent in the proximal right coronary artery. 2. Successful percutaneous vascular access closure. PLAN: The patient will be admitted to telemetry and will receive aspirin and Plavix daily. Beta johanne, lipid-lowering and antihypertensive therapy will be continued. TRISTA MILLAN MD ECA/MODL #: [id number] MEDICAL/SURGICAL CARDIAC CATHETERIZATION - [facility] * Trista Millan MD - 09/20/2012 4:23 PM CDT POST CORONARY ANGIOGRAPHY/INTERVENTION PROCEDURE NOTE Date: 09/20/2012 Time: 4:23 PM Verna Zuniga is a 66 y.o. male. Full procedure note dictated # [id number]. Pre-procedure Diagnosis: CAD Indications: CAD Presentation - Unstable Angina Anginal Classification within 2 weeks- CCSIII Anti-Anginal medications within the past 2 weeks- Yes If yes, type: Beta Blockers Heart Failure within 2 weeks: No Stress or imaging Studies Performed: Yes Test performed: Stress with SPECT MPI Results: POSITIVE Risk/Extent of Ischemia: High Procedures Performed: 1. PCI 2. Percutaneous vascular access closure Findings: PCI: Via RFA 7fr 7fr FR4 guide Angiomax 90% proximal RCA stenosis heavily calcified Lesion crossed with PT2 wire and 1.5 mm balloon Wire exchanged into Roto Floppy wire 1.25 mm portia advanced and multiple passes performed at 180,000 rpm Lesion recrossed with PT2 Dilated with 2.5 mm balloon Then stented with 3.0 x 26 mm Resolute DELMI 0% residual stenosis Preserved MIGUEL ANGEL III flow Complications: None. Estimated blood loss: <50 ml. Specimens: N/A Hemostasis device: Angioseal. Post-procedure Summary: 1. Successful PCI, rotational atherectomy, and implantation of 3.0 x 26 mm Resolute DELMI in proximalRCA Recommendations: 1. To tele 2. ASA and Plavix 3. Continue remainder of cardiac regimen 4. Follow up in [place] office. Trista Millan MD 09/20/2012 4:23 PM documented in this encounter Consult Notes * Chantel Willis RN - 09/21/2012 10:24 AM CDTAssociated Order(s): IP CONSULT TO CARDIOPULMONARY REHABILITATIO Cardiopulmonary Rehabilitation: Discharge education completed with patient and family. Please see education section of chart for specifics. Outpatient cardiac rehab encouraged for continued activity and support. Thank you for this consultation. documented in this encounter Miscellaneous Notes * Miscellaneous Scans - Document, Scanned - 09/24/2012 9:55 AM CDT * Miscellaneous Scans - Document, Scanned - 09/22/2012 12:30 PM CDT * Miscellaneous Scans - Document, Scanned - 09/22/2012 12:30 PM CDT * Miscellaneous Scans - Document, Scanned - 09/22/2012 12:30 PM CDT documented in this encounter Plan of Treatment Upcoming Encounters Date Type Department Care Team (Late st Contact Info) Description 07/11/2024 10:30 AM [facility] Office Visit [facility] Geriatrics [address] [place] [phone] Liza Morrow MD [address] [place] [phone] 07/16/2024 10:00 AM [facility] [place] Office Visit [facility] - Ophthalmology [address] [place] [phone] Shahriar Young MD [address] [place] [address] [place] [address] Scheduled Orders Name Type Priority Associated Diagnoses Order Schedule GLUCOSE - POINT OF CARE POCT No Acknowledgement Routine ONCE for 1 Occurrences starting 09/22/2012 until 09/22/2012 documented as of this encounter Procedures Procedure Name Priority Date/Time Associated Diagnosis Comments LAB RESULTS ORDER 09/22/2012 12: 30 PM CDT CARDIAC STRESS TEST ORDER 09/22/2012 12:30 PM CDT CARDIAC RHYTHM STRIP ORDER 09/22/2012 12:30 PM CDT CARDIAC PROCEDURE ORDER 09/22/2012 12:30 PM CDT CARDIAC EKG ORDER 09/22/2012 12: 30 PM CDT GLUCOSE - POINT OF CARE Routine 09/21/2012 12:02 PM CDT CBC W AUTO DIFFERENTIAL AM Draw 09/21/2012 5:20 AM CDT CAD (coronary artery disease) BASIC METABOLIC PANEL (CALCIUM TOTAL) AM Draw 09/21/2012 5:20 AM CDT CAD (coronary artery disease) GLUCOSE - POINT OF CARE Routine 09/20/2012 9:21 PM CDT GLUCOSE - POINT OF CARE Routine 09/20/2012 5:11 PM CDT CARDIAC CATH CONSULT Routine 09/20/2012 12:00 PM CDT documented in this encounter Results * LAB RESULTS ORDER (09/22/2012 12:30 PM CDT) Narrative 09/22/2012 12:30 PM CDT Procedure Note Document, Scanned - 09/22/2012 12:30 PM CDT Scanned Document LAB - THERAPEUTIC DR UG MONITORING ORDERABLES * CARDIAC PROCEDURE ORDER (09/22/2012 12:30 PM CDT) Narrative 09/22/2012 12:30 PM CDT Procedure Note Document, Scanned - 09/22/2012 12:30 PM CDT Scanned Document CARDIAC SERVICES ORD ERABLES * CARDIAC STRESS TEST ORDER (09/22/2012 12:30 PM CDT) Narrative 09/22/2012 12:30 PM CDT Procedure Note Document, Scanned - 09/22/2012 12:30 PM CDT Scanned Document CARDIAC SERVICES ORD ERABLES * CARDIAC RHYTHM STRIP ORDER (09/22/2012 12:30 PM CDT) Narrative 09/22/2012 12:30 PM CDT Procedure Note Document, Scanned - 09/22/2012 12:30 PM CDT Scanned Document CARDIAC SERVICES ORD ERABLES * CARDIAC EKG ORDER (09/22/2012 12:30 PM CDT) Narrative 09/22/2012 12:30 PM CDT Procedure Note Document, Scanned - 09/22/2012 12:30 PM CDT Scanned Document CARDIAC SERVICES ORD ERABLES * (ABNORMAL) GLUCOSE - POINT OF CARE (09/21/2012 12:02 PM CDT) Glucose WB/POC 261(H) 70 - 106 mg/dL 09/21/2012 12:15 PM CDT [facility] Blood specimen (specimen) BLOOD SPECIMEN / Unknown 09/21/2012 12:02 PM CDT 09/21/2012 12:15 PM CDT Trista Millan MD LAB - POINT OF CARE ORDERABLES Performing Organization Address [facility] de Phone Number [facility] [address] [place] [address] * (ABNORMAL) GLUCOSE - POINT OF CARE (09/21/2012 6:20 AM CDT) Blood specimen (specimen) BLOOD SPECIMEN / Unknown 09/21/2012 6:20 AM CDT 09/22/2012 5:33 PM CDT Trista Millan MD LAB - POINT OF CARE ORDERABLES Performing Organization Address [facility] Co de Phone Number [facility] [address] [place] [address] * (ABNORMAL) BASIC METABOLIC PANEL (CALCIUM TOTAL) (09/21/2012 5:20 AM CDT) Glucose 154(H) 74 - 106 mg/dL 09/21/2012 5:51 AM CDT [facility] Sodium 141 136 - 145 mmol/L 09/21/2012 5:51 AM CDT [facility] Potassium 2.7(L) 3.5 - 5.1 mmol/L 09/21/2012 5:51 AM CDT [facility] Chloride 101 98 - 107 mmol/L 09/21/2012 5:51 AM CDT [facility] CO2 28 22 - 31 mmol/L 09/21/2012 5:51 AM CDT [facility] Calcium 9.2 8.5 - 10.1 mg/dL 09/21/2012 5:51 AM CDT [facility] Anion Gap 12 5 - 15 mmol/L 09/21/2012 5:51 AM CDT [facility] BUN 16 7 - 21 mg/dL 09/21/2012 5:51 AM CDT [facility] Creatinine 0.77 0.50 - 1.30 mg/dL 09/21/2012 5:51 AM CDT [facility] eGFR by MDRD >60 >60 ml/min/1.7 3m2 09/21/2012 5:51 AM CDT [facility] eGFR by MDRD >60 >60 ml/min/1.7 3m2 09/21/2012 5:51 AM CDT [facility] Blood specimen (specimen) BLOOD SPECIMEN / Unknown 09/21/2012 5:20 AM CDT 09/21/2012 5:30 AM CDT Trista Millan MD LAB - CHEMISTRY [facility]SA[facility] Organization Address City/State/ZIP Co de Phone Number [facility] [address] [place] [address] * (ABNORMAL) CBC W AUTO DIFFERENTIAL (09/21/2012 5:20 AM CDT) WBC 6.6 4.4 - 10.7 x10^9/L 09/21/2012 5:55 AM CDT [facility] RBC 3.91 3.80 - 5.40 x10^12/L 09/21/2012 5:55 AM CDT [facility] Hemoglobin 13.1 12.0 - 17.6 g/dL 09/21/2012 5:55 AM CDT [facility] Hematocrit 35.7 35.2 - 51.7 % 09/21/2012 5:55 AM CDT [facility] MCV 91.3 80.7 - 98.3 fl 09/21/2012 5:55 AM CDT [facility] MCH 33.5 26.7 - 34.0 pg 09/21/2012 5:55 AM CDT [facility] MCHC 36.7(H) 30.8 - 35.9 gm/dL 09/21/2012 5:55 AM CDT [facility] Platelet Count 220 153 - 416 x10^9/L 09/21/2012 5:55 AM CDT [facility] RDW-CV 12.4 12.1 - 14.9 % 09/21/2012 5:55 AM CDT [facility] Neutrophils % 63 44 - 73 % 09/21/2012 5:55 AM CDT [facility] Lymphocytes % 20 20 - 43 % 09/21/2012 5:55 AM CDT [facility] Monocytes % 9 5 - 13 % 09/21/2012 5:55 AM CDT [facility] Eosinophils % 6 0 - 6 % 09/21/2012 5:55 AM CDT [facility] Basophils % 2 0 - 2 % 09/21/2012 5:55 AM CDT [facility] Immature Granulocytes 0.3 0 - 1 % 09/21/2012 5:55 AM CDT [facility] Neutrophil Absolute 4.15 x10^9/L 09/21/2012 5:55 AM CDT [facility] Lymphocytes Absolute 1.31 1.07 - 3.94 x10^9/L 09/21/2012 5:55 AM CDT [facility] Monocytes Absolute 0.62 0.26 - 1.07 x10^9/L 09/21/2012 5:55 AM CDT [facility] Eosinophils Absolute 0.40 0 - 0.47 x10^9/L 09/21/2012 5:55 AM CDT [facility] Basophils Absolute 0.13(H) 0 - 0.08 x10^9/L 09/21/2012 5:55 AM CDT [facility] Immature Granulocytes Absolute 0.02 0.00 - 0.06 x10^9/L 09/21/2012 5:55 AM CDT [facility] nRBC Auto 0 09/21/2012 5:55 AM CDT [facility] Blood specimen (specimen) BLOOD SPECIMEN / Unknown 09/21/2012 5:20 AM CDT 09/21/2012 5:30 AM CDT Trista Millan MD LAB - HEMATOLOGY ORD ERABLES Performing Organization Address City/[facility]/ZIP Co de Phone Number [facility] [address] [place] [address] * (ABNORMAL) GLUCOSE - POINT OF CARE (09/20/2012 9:21 PM CDT) Glucose WB/POC 199(H) 70 - 106 mg/dL 09/22/2012 5:32 PM CDT [facility] Blood specimen (specimen) BLOOD SPECIMEN / Unknown 09/20/2012 9:21 PM CDT 09/22/2012 5:32 PM CDT Trista Millan MD LAB - POINT OF CARE ORDERABLES Performing Organization Address [facility] Co de Phone Number [facility] [address] [place] [address] * (ABNORMAL) GLUCOSE - POINT OF CARE (09/20/2012 5:11 PM CDT) Glucose WB/POC 171(H) 70 - 106 mg/dL 09/21/2012 7:22 AM CDT [facility] Blood specimen (specimen) BLOOD SPECIMEN / Unknown 09/20/2012 5:11 PM CDT 09/21/2012 7:22 AM CDT Trista Millan MD LAB - POINT OF CARE ORDERABLES Performing Organization Address [facility] Co de Phone Number [facility] [address] [place] [address] * CARDIAC CATH CONSULT (09/20/2012 12:00 PM CDT) 09/20/2012 12:0 0 PM CDT Narrative Transcriptions Trista Millan MD - 09/20/2012 6:11 PM CDT [facility] CARDIAC CATHETERIZATION PATIENT: VERNA ZUNIGA MR#: [id number] ADMIT DATE: 09/20/2012 CSN: [id number] PROCEDURE DATE: 09/20/2012 :1945 PHYSICIAN: Trista Millan MD ROOM: [facility] REFERRING PHYSICIAN: TRISTA MILLAN INDICATION: The patient is a very pleasant 66-year-old gentleman withhistory of coronary artery disease, a recent markedly abnormal stress test inthe setting of dyspnea and angina. Coronary angiography in [place], [place]2 weeks ago revealed severe 2-vessel coronary artery disease of theproximal circumflex and the proximal right coronary artery. At that time, heunderwent successful stenting of the proximal circumflex with unsuccessful attemptsat crossing a heavily calcified, highly tortuous proximal right coronarylesion. He presents today for staged PCI. PROCEDURES PERFORMED: 1. Percutaneous coronary intervention. 2. Rotational atherectomy. 3. Stent plantation. 4. Percutaneous vascular access closure. PROCEDURE TECHNIQUE: After informed consent, the patient was brought to cardiac catheterization laboratory and prepped and draped in the usualsterile manner. Vascular access was obtained via right femoral artery using a7- Cameroonian sheath advanced over the wire without difficulty after localanesthesia was applied using 1% lidocaine. The right coronary artery was initially cannulated using a 7-Cameroonian AL-0.75 guide catheter, which was replacedwith a 7-Cameroonian FR4 guide catheter for better guide support. The patientreceived Angiomax bolus and infusion was started. Initial angiography confirmed a90% heavily calcified proximal right coronary stenosis prior to a sharply angulated tortuous segment. The patient received Angiomax bolus andinfusion was started. The lesion was crossed using a PT2 guidewire with the backup of a 1.5 mm balloon, and it was a later exchanged into a Roto floppyguidewire. A 1.25 mm rotational atherectomy bur was advanced and multiple passes performed at 180,000 r.p.m. with adequate debulking of the lesion. Thelesion was then re-crossed using a PT2 guidewire and was predilated using a 2.5mm balloon followed by implantation of a 3.0 x 26 mm Resolute drug-elutingstent deployed at high pressure with zero percent residual stenosis andexcellent result on subsequent angiography with preserved MIGUEL ANGEL grade 3 flow in the vessel. PROCEDURE COMMENTS: The patient tolerated the procedure well without complications. At the end of the procedure, right femoral arterypuncture site hemostasis was achieved using an 8-Cameroonian Angio-Seal device without complications. CONCLUSION: 1. Successful percutaneous coronary intervention, rotationalatherectomy, and implantation of a 3.0 x 26 mm Resolute drug-eluting stent in the proximal right coronary artery. 2. Successful percutaneous vascular access closure. PLAN: The patient will be admitted to telemetry and will receive aspirinand Plavix daily. Beta johanne, lipid-lowering and antihypertensive therapywill be continued. TRISTA MILLAN MD ECA/MODL #: [id number] MEDICAL/SURGICAL CARDIAC CATHETERIZATION - [facility] Trista Millan MD ECHO ORDERABLES [facility] documented in this encounter Visit Diagnoses Diagnosis CAD (coronary artery disease) Coronary atherosclerosis of unspecified type of vessel, [place] or graft documented in this encounter Administered Medications Inactive Administered Medications - up to 3 most recent administrations Medication Order MAR Action Action Date Dose Rate Site 0.9% NaCl infusion at 75 mL/hr, Intravenous, PRE-PROCEDURE CONTINUOUS, Starting on Mon09/20/12 at 1400, Until Mon09/20/12 at 1705, Pre-procedure (CATH) $ New Bag/Syringe 09/20/2012 1:53 PM CDT 75 mL/hr aspirin chew tablet 81 mg 81 mg, Oral, DAILY, First dose on Mon09/21/12 at 0900, Until Discontinued $ Given 09/21/2012 8:35 AM CDT 81 mg bivalirudin (ANGIOMAX) 250 mg in NaCl 0.9 % infusion 1.75 mg/kg/hr ? 100.7 kg (rounded to 35.25 mL/hr), Intravenous, CONTINUOUS, Starting on Mon09/20/12 at 1545, Until Mon09/20/12 at 1705 $ New Bag/Syringe 09/20/2012 3:30 PM CDT 1.75 mg/kg/hr 35.25 mL/hr bivalirudin (ANGIOMAX) IV bolus 75 mg (0.75 mg/kg ? 100.7 kg), Intravenous, INTRA-PROCEDURE ONCE, 1 dose $ Given 09/20/2012 3:27 PM CDT 75 mg cloNIDine (CATAPRES) tablet 0.2 mg 0.2 mg, Oral, 2 TIMES DAILY, First dose on Mon09/20/12 at 2100, Until Discontinued $ Given 09/21/2012 8:35 AM CDT 0.2 mg $ Given 09/20/2012 9:50 PM CDT 0.2 mg clopidogrel (plaVIX) tablet 600 mg 600 mg, Oral, INTRA-PROCEDURE ONCE, 1 dose $ Given 09/20/2012 4:24 PM CDT 600 mg clopidogrel (plaVIX) tablet 75 mg 75 mg, Oral, DAILY, First dose on Mon09/21/12 at 0900, Until Discontinued $ Given 09/21/2012 8:35 AM CDT 75 mg enoxaparin (LOVENOX) injection 40 mg 40 mg, Subcutaneous, DAILY AT 0600, First dose on Mon09/20/12 at 1715, Until Discontinued $ Given 09/21/2012 6:03 AM CDT 40 mg Abdominal Tissue fentaNYL (SUBLIMAZE) injection 25-200 mcg 25-200 mcg, Intravenous, INTRA-PROCEDURE MULTIPLE, Starting on Mon09/20/12 at 1500, Until Mon09/20/12 at 1705 $ Given 09/20/2012 3:28 PM CDT 25 mcg $ Given 09/20/2012 3:24 PM CDT 50 mcg finasteride (PROSCAR) tablet 5 mg 5 mg, Oral, DAILY, First dose on Mon09/21/12 at 0900, Until Discontinued, Women who are or planning to become should not handle crushed or broken tablets $ Given 09/21/2012 8:35 AM C DT 5 mg gemfibrozil (LOPID) tablet 600 mg 600 mg, Oral, 2 TIMES DAILY (before breakfast and supper), First dose on Mon09/20/12 at 1715, Until Discontinued, Give 30 minutes before meal $ Given 09/21/2012 6:03 AM CDT 600 mg iohexol (OMNIPAQUE 350) contrast Intra-arterial, CONTRAST ONCE, Starting on Mon09/20/12 at 1353, Until Mon09/20/12 at 1705, Pre-procedure (CATH) $ Given 09/20/2012 4:21 PM CDT 280 mL lisinopril (PRINIVIL; ZESTRIL) tablet 40 mg 40 mg, Oral, DAILY, First dose on Mon09/20/12 at 1800, Until Discontinued $ Given 09/21/2012 8:36 AM CDT 40 mg $ Given 09/20/2012 6:30 PM CDT 40 mg metoprolol tartrate IR (LOPRESSOR) tablet 25 mg 25 mg, Oral, 2 TIMES DAILY, First dose on Mon09/20/12 at 2100, Until Discontinued $ Given 09/21/2012 8:35 AM CDT 25 m g $ Given 09/20/2012 9:50 PM CDT 25 mg midazolam (VERSED) injection 1-6 mg 1-6 mg, Intravenous, INTRA-PROCEDURE MULTIPLE, Starting on Mon09/20/12 at 1500, Until Mon09/20/12 at 1705 $ Given 09/20/2012 3:28 PM CDT 1 mg $ Given 09/20/2012 3:24 PM CDT 2 mg pantoprazole EC (PROTONIX) tablet 40 mg 40 mg, Oral, 2 TIMES DAILY (before breakfast and supper), First dose on Mon09/20/12 at 1745, Until Discontinued $ Given 09/21/2012 6:03 AM CDT 40 mg $ Given 09/20/2012 6:30 PM CDT 40 mg potassium chloride SA (K-DUR) tablet 30 mEq 30 mEq, Oral, DAILY, First dose on Mon09/21/12 at 0900, Until Discontinued, May cut in half but do not crush or chew. $ Given 09/21/2012 8:35 AM CDT 30 mEq pravastatin (PRAVACHOL) tablet 40 mg 40 mg, Oral, AT BEDTIME, First dose on Mon09/20/12 at 2100, Until Discontinued $ Given 09/20/2012 9:50 PM CDT 40 mg spironolactone (ALDACTONE) tablet 25 mg 25 mg, Oral, DAILY, First dose on Mon09/21/12 at 0900, Until Discontinued $ Given 09/21/2012 8:35 AM CDT 25 mg tamsulosin CR 24hr (FLOMAX) capsule 0.4 mg 0.4 mg, Oral, DAILY, First dose on Mon09/21/12 at 0900, Until Discontinued, Administer 30 minutes after the same meal each day. Do not crush, chew, or open capsule. $ Given 09/21/2012 8:35 AM CDT 0.4 mg documented in this encounter Active and Recently Administered Medications Times are shown in CDT. Scheduled Medication Order 09/19/2012 09/20/201209/2109/21/2012 aspirin chew tablet 81 mg (CANCELED) 81 mg, Oral, DAILY, First dose on Mon09/21/12 at 0900, Until Discontinued 0835 ($ Given - Provider: Alyssa Brito RN) bivalirudin (ANGIOMAX) IV bolus (COMPLETED) 75 mg (0.75 mg/kg ? 100.7 kg), Intravenous, INTRA-PROCEDURE ONCE, 1 dose 1527 ($ Given - Provider: Yanci Reed, SUE) cloNIDine (CATAPRES) tablet 0.2 mg (CANCELED) 0.2 mg, Oral, 2 TIMES DAILY, First dose on Mon09/20/12 at 2100, Until Discontinued 2150 ($ Given - Provider: Areli Tovar, SUE) 0835 ($ Given - Provider: Alyssa Brito RN) clopidogrel (plaVIX) tablet 600 mg (COMPLETED) 600 mg, Oral, INTRA-PROCEDURE ONCE, 1 dose 1624 ($ Given - Provider: Yanci Reed RN) clopidogrel (plaVIX) tablet 75 mg 75 mg, Oral, DAILY, First dose on Mon09/21/12 at 0900, Until Discontinued 0835 ($ Given - Provider: Alyssa Brito RN) enoxaparin (LOVENOX) injection 40 mg (CANCELED) 40 mg, Subcutaneous, DAILY AT 0600, First dose on Mon09/20/12 at 1715, Until Discontinued 1715 (Held - Provider: Jackie Banks RN) 0603 ($ Given - Provider: Areli Tovar, SUE) fentaNYL (SUBLIMAZE) injection 25-200 mcg (CANCELED) 25-200 mcg, Intravenous, INTRA-PROCEDURE MULTIPLE, Starting on Mon09/20/12 at 1500, Until Mon09/20/12 at 1705 1524 ($ Given - Provider: Yanci Reed, SUE)1528 ($ Given - Provider: Yanci Reed, SUE) finasteride (PROSCAR) tablet 5 mg (CANCELED) 5 mg, Oral, DAILY, First dose on Mon09/21/12 at 0900, Until Discontinued, Women who are or planning to become should not handle crushed or broken tablets 0835 ($ Given - Provider: Alyssa Brito RN) gemfibrozil (LOPID) tablet 600 mg (CANCELED) 600 mg, Oral, 2 TIMES DAILY (before breakfast and supper), First dose on Mon09/20/12 at 1715, Until Discontinued, Give 30 minutes before meal 1715 (Not Administered - Provider: Jackie Banks RN - Reason: Meal time altered) 0603 ($ Given - Provider: Areli Tovar, SUE) iohexol (OMNIPAQUE 350) contrast (CANCELED) Intra-arterial, CONTRAST ONCE, Starting on Mon09/20/12 at 1353, Until Mon09/20/12 at 1705, Pre-procedure (CATH) 1621 ($ Given - Provider: Yanci Reed, SUE) lisinopril (PRINIVIL; ZESTRIL) tablet 40 mg (CANCELED) 40 mg, Oral, DAILY, First dose on Mon09/20/12 at 1800, Until Discontinued 1830 ($ Given - Provider: Jackie Banks RN) 0836 ($ Given - Provider: Alyssa Brito, SUE) metoprolol tartrate IR (LOPRESSOR) tablet 25 mg (CANCELED) 25 mg, Oral, 2 TIMES DAILY, First dose on Mon09/20/12 at 2100, Until Discontinued 2150 ($ Given - Provider: Areli Tovar, SUE) 0835 ($ Given - Provider: Alyssa Brito, SUE) midazolam (VERSED) injection 1-6 mg (CANCELED) 1-6 mg, Intravenous, INTRA-PROCEDURE MULTIPLE, Starting on Mon09/20/12 at 1500, Until Mon09/20/12 at 1705 1524 ($ Given - Provider: Yanci Reed, SUE)1528 ($ Given - Provider: Yanci Reed, RN) pantoprazole EC (PROTONIX) tablet 40 mg (CANCELED) 40 mg, Oral, 2 TIMES DAILY (before breakfast and supper), First dose on Mon09/20/12 at 1745, Until Discontinued 1830 ($ Given - Provider: Jackie Banks RN) 0603 ($ Given - Provider: Areli Tovar, SUE) potassium chloride SA (K-DUR) tablet 30 mEq (CANCELED) 30 mEq, Oral, DAILY, First dose on Mon09/21/12 at 0900, Until Discontinued, May cut in half but do not crush or chew. 0835 ($ Given - Provider: Alyssa Brito, RN) pravastatin (PRAVACHOL) tablet 40 mg (CANCELED) 40 mg, Oral, AT BEDTIME, First dose on Hy[place] 09/20/12 at 2100, Until Discontinued 2150 ($ Given - Provider: Areli Tovar, SUE) spironolactone (ALDACTONE) tablet 25 mg 25 mg, Oral, DAILY, First dose on Mon09/21/12 at 0900, Until Discontinued 0835 ($ Given - Provider: Alyssa Brito, RN) tamsulosin CR 24hr (FLOMAX) capsule 0.4 mg (CANCELED) 0.4 mg, Oral, DAILY, First dose on Mon09/21/12 at 0900, Until Discontinued, Administer 30 minutes after the same meal each day. Do not crush, chew, or open capsule. 0835 ($ Given - Provider: Alyssa Brito, RN) Continuous Medication Order 09/19/2012 09/20/2012 09/21/2012 0.9% NaCl infusion (CANCELED) at 75 mL/hr, Intravenous, PRE-PROCEDURE CONTINUOUS, Starting on Hy[place] 09/20/12 at 1400, Until [place] 09/20/12 at 1705, Pre-procedure (CATH) 1353 ($ New Bag/Syringe - Provider: Amparo Marcial RN) bivalirudin (ANGIOMAX) 250 mg in NaCl 0.9 % infusion (CANCELED) 1.75 mg/kg/hr ? 100.7 kg (rounded to 35.25 mL/hr), Intravenous, CONTINUOUS, Starting on [place] 09/20/12 at 1545, Until [place] 09/20/12 at 1705 1530 ($ New Bag/Syringe - Provider: Yanci Reed, SUE)1620 (Stopped - Provider: Yanci Reed, SUE) documented in this encounter Care Teams Respiratory Therapy Assistant Relationship Specialty Start Date End Date Wesley Em MD PCP - General Internal Medicine 09/20/12 documented as of this encounter
--- OUTSIDE RECORDS SUMMARY | 2024-06-18 18:02 | XMS_ITS | Patient Health Summary ---
Author Organization [facility] Address [address] [place] [address] Care Team Providers Care Dietetic Tech Name Role Phone Wesley Em MD Primary Care Provider Unavail able Note from [facility],non-owned Affiliates and Associated Physician Practices is amultiple site organization consisting of ambulatory clinics and hospital sitesin [place], [place], [place] and [place]. This disclosure is being madepursuant to the Care Everywhere program and may not contain all information available regarding this patient. Last updated 18.[facility] Allergies * Ciprofloxacin Medications * Be aware that medications may not be up to date on this document. Alwaysverify current medications with the patient. * aspirin 81 MG tablet Take 81 mg by mouth once daily. * finasteride (PROSCAR) 5 MG tablet Take 5 mg by mouth once daily. * atorvastatin (LIPITOR) 40 MG tablet(Started 05/24/2016) Take 1 Tab by mouth at bedtime * amLODIPine (Norvasc) 5 MG tablet(Started 09/25/2023) Take 1 (one) tablet by mouth once daily * lisinopril (Prinivil; Zestril) 20 MG tablet(Started 02/06/2023) Take 1 (one) tablet by mouth once daily * magnesium oxide (Mag-Ox) 400 MG tablet(Started 07/17/2023) TAKE 1 TABLET(400 MG) BY MOUTH TWICE DAILY * memantine (Namenda) 5 MG tablet(Started 11/13/2023) Take 1 (one) tablet by mouth 2 times daily * omeprazole (PriLOSEC) 20 MG capsule(Started 01/24/2024) Take 1 (one) capsule by mouth once daily * rivaroxaban (Xarelto) 20 MG tablet Take 1 (one) tablet by mouth daily with food * rivaroxaban (Xarelto) 20 MG tablet(Started 05/01/2024) Take 1 (one) tablet by mouth daily with food * docusate sodium (Colace) 100 MG capsule(Started 05/01/2024) Take by mouth once daily Active Problems No known active problems Immunizations * Covid Pfizer primary monovalent 12+ yr 0.3mL Purple cap(Given 09/06/2021) * PNEUMOCOCCAL PCV20 CONJ VAC IM(Given 04/18/2024) * TDAP (7yrs+)(Given 12/19/2007) * TDAP, HISTORIC VACCINE(Given 09/16/2022) Social History Tobacco Use Types Packs/Day Years [...] Comments Blood Pressure 125/71 05/27/2024 2:11 PM DENTAL SPECIALIST Pulse 49 05/27/2024 2:11 PM DENTAL SPECIALIST Temperature 36.4 ??C (97.6 ??F) 09/21/2012 11:22 AM C DT Respiratory Rate 16 06/13/2019 2:25 PM DENTAL SPECIALIST Oxygen Saturation 94% 05/27/2024 2:11 PM DENTAL SPECIALIST Inhaled Oxygen Concentration 98% 09/20/2012 1 :45 PM CDT Weight 83.5 kg (184 lb) 05/27/2024 2:11 PM DENTAL SPECIALIST Height 172.7 cm (5' 8 ) 05/27/2024 2:11 PM DENTAL SPECIALIST Body Mass Index 27.98 05/27/2024 2:11 PM DENTAL SPECIALIST Procedures * AUDIOLOGY/TYMPANOMETRY ORDER(Performed 05/27/2024) * HEMOGLOBIN A1C - POINT OF CARE (AMB) [facility](Performed 04/18/2024) Performed for Hyperglycemia * NM MYOCARD PERF REST STRESS(Performed 11/23/2015) Performed for Atherosclerosis of [place] coronary artery of [place] heart with angina pectoris (HCC) * STRESS TEST LEXISCAN (NUCLEAR)(Performed 11/23/2015) Performed for Atherosclerosis of [place] coronary artery of [place] heart, angina presence unspecified * LAB RESULTS ORDER(Performed 09/22/2012) * CARDIAC PROCEDURE ORDER(Performed 09/22/2012) * CARDIAC STRESS TEST ORDER(Performed 09/22/2012) * CARDIAC RHYTHM STRIP ORDER(Performed 09/22/2012) * CARDIAC EKG ORDER(Performed 09/22/2012) * GLUCOSE - POINT OF CARE(Performed 09/21/2012) * BASIC METABOLIC PANEL (CALCIUM TOTAL)(Performed 09/21/2012) Performed for CAD (coronary artery disease) * CBC W AUTO DIFFERENTIAL(Performed 09/21/2012) Performed for CAD (coronary artery disease) * GLUCOSE - POINT OF CARE(Performed 09/20/2012) * GLUCOSE - POINT OF CARE(Performed 09/20/2012) * CARDIAC CATH CONSULT(Performed 09/20/2012) * CARDIAC PROCEDURE ORDER(Performed 09/04/2012) * CARDIAC PROCEDURE ORDER(Performed 09/04/2012) * LAB RESULTS ORDER(Performed 09/03/2012) * CARDIAC STRESS TEST ORDER(Performed 08/17/2012) * CARDIAC STRESS TEST ORDER(Performed 08/17/2012) * CARDIAC EKG ORDER(Performed 08/13/2012) Results * AUDIOLOGY/TYMPANOMETRY ORDER (05/27/2024 1:26 PM DENTAL SPECIALIST) Narrative Keesha Bateman, AuD - 05/27/2024 1:50 PM DENTAL SPECIALIST History: Villa Alston arrived for a hearing evaluation. Patient has [...] 4) Amplification pending interest/medical clearance. Aung Garcia. [facility]-A Clinical Grain Merchandising Manager [facility]-Department of Otolaryngology/Audiology [facility] [address] [place] [address]. (Garden Level) [place] [address] Keesha Bhavana Horan AUDIOLOGY SERVICES O RDERABLES * HEMOGLOBIN A1C - POINT OF CARE (AMB) [facility] (04/18/2024 9:54 AM CDT) Hemoglobin A1c POCT 6.3 % [address] Blood BLOOD SPECIMEN / Unknown 04/18/2024 9:54 AM CDT Liza Morrow MD LAB - POINT OF CARE ORDERABLES Performing Organization Address City/State/[facility] Co de Phone Number [address], [place] [address], [facility] [phone] * NM MYOCARD PERFUSION SPECT STRESS AND [...] most marked at the posterior wall. Garth Masters MD [place] ORDERABLES * STRESS TEST LEXISCAN (NUCLEAR) (11/23/2015 10:56 AM CDT) Pathologist [facility] Stress Test Summary For full formatted report, [...] correlated w/imaging report Diagnosis: Confirmed by GARTH MASTERS MD ([id number]) on 11/23/2015 11:56:30 AM Attending Physician: Referred By: ? Overread By: GARTH MASTERS MD [facility] STRESS 11/23/2015 10:5 6 AM CDT 11/23/2015 11:56 AM CDT Garth Masters MD CARDIAC SERVICES ORD ERABLES DP STRESS * LAB RESULTS ORDER (09/22/2012 12:30 PM CDT) Only the most recent of2 resultswithin the time period is included. Narrative 09/22/2012 12:30 PM CDT Procedure Note Document, Scanned - 09/22/2012 12:30 PM CDT Scanned Document LAB - THERAPEUTIC DR UG MONITORING ORDERABLES * CARDIAC STRESS TEST ORDER (09/22/2012 12:30 PM CDT) Only the most recent of3 resultswithin the time period is included. Narrative 09/22/2012 12:30 PM CDT Procedure Note Document, Scanned - 09/22/2012 12:30 PM CDT Scanned Document CARDIAC SERVICES ORD ERABLES * CARDIAC RHYTHM STRIP ORDER (09/22/2012 12:30 PM CDT) Narrative 09/22/2012 12:30 PM CDT Procedure Note Document, Scanned - 09/22/2012 12:30 PM CDT Scanned Document CARDIAC SERVICES ORD ERABLES * CARDIAC PROCEDURE ORDER (09/22/2012 12:30 PM CDT) Only the most recent of3 resultswithin the time period is included. Narrative 09/22/2012 12:30 PM CDT Procedure Note Document, Scanned - 09/22/2012 12:30 PM CDT Scanned Document CARDIAC SERVICES ORD ERABLES * CARDIAC EKG ORDER (09/22/2012 12:30 PM CDT) Only the most recent of2 resultswithin the time period is included. Narrative 09/22/2012 12:30 PM CDT Procedure Note Document, Scanned - 09/22/2012 12:30 PM CDT Scanned Document CARDIAC SERVICES ORD ERABLES * (ABNORMAL) GLUCOSE - POINT OF CARE (09/21/2012 12:02 PM CDT) Only the most recent of4 resultswithin the time period is included. Glucose WB/POC 261(H) 70 - 106 mg/dL 09/21/2012 12:15 PM CDT [facility] Blood specimen (specimen) BLOOD SPECIMEN / Unknown 09/21/2012 12:02 PM CDT 09/21/2012 12:15 PM CDT Garth Masters MD LAB - POINT OF CARE ORDERABLES [facility] [address] [place] [address] * (ABNORMAL) CBC W AUTO DIFFERENTIAL (09/21/2012 5:20 AM CDT) Pathologist [facility] WBC 6.6 4.4 - 10.7 x10^9/L 09/21/2012 5:55 AM CDT [facility] RBC 3.91 3.80 - 5.40 x10^12/L 09/21/2012 5:55 AM CDT [facility] Hemoglobin 13.1 12.0 - 17.6 g/dL 09/21/2012 5:55 AM CDT [facility] Hematocrit 35.7 35.2 - 51.7 % 09/21/2012 5:55 AM CDT [facility] MCV 91.3 80.7 - 98.3 fl 09/21/2012 5:55 AM CDT [facility] MCH 33.5 26.7 - 34.0 pg 09/21/2012 5:55 AM CDT [facility] MCHC 36.7(H) 30.8 - 35.9 gm/dL 09/21/2012 5:55 AM CDT [facility] Platelet Count 220 153 - 416 x10^9/L 09/21/2012 5:55 AM CDT [facility] RDW-CV 12.4 12.1 - 14.9 % 09/21/2012 5:55 AM CDT [facility] Neutrophils % 63 44 - 73 % 09/21/2012 5:55 AM CDT [facility] Lymphocytes % 20 20 - 43 % 09/21/2012 5:55 AM CDT [facility] Monocytes % 9 5 - 13 % 09/21/2012 5:55 AM CDT [facility] Eosinophils % 6 0 - 6 % 09/21/2012 5:55 AM CDT [facility] Basophils % 2 0 - 2 % 09/21/2012 5:55 AM CDT [facility] Immature Granulocytes 0.3 0 - 1 % 09/21/2012 5:55 AM CDT [facility] Neutrophil Absolute 4.15 x10^9/L 09/21/2012 5:55 AM CDT [facility] Lymphocytes Absolute 1.31 1.07 - 3.94 x10^9/L 09/21/2012 5:55 AM CDT [facility] Monocytes Absolute 0.62 0.26 - 1.07 x10^9/L 09/21/2012 5:55 AM CDT [facility] Eosinophils Absolute 0.40 0 - 0.47 x10^9/L 09/21/2012 5:55 AM CDT [facility] Basophils Absolute 0.13(H) 0 - 0.08 x10^9/L 09/21/2012 5:55 AM CDT [facility] Immature Granulocytes Absolute 0.02 0.00 - 0.06 x10^9/L 09/21/2012 5:55 AM CDT [facility] nRBC Auto 0 09/21/2012 5:55 AM CDT [facility] Blood specimen (specimen) BLOOD SPECIMEN / Unknown 09/21/2012 5:20 AM CDT 09/21/2012 5:30 AM CDT Garth Masters MD LAB - HEMATOLOGY ORD ERABLES [facility] [address] [place] [address] * (ABNORMAL) BASIC METABOLIC PANEL (CALCIUM TOTAL) (09/21/2012 5:20 AM CDT) Glucose 154(H) 74 - 106 mg/dL 09/21/2012 5:51 AM CDT [facility] Sodium 141 136 - 145 mmol/L 09/21/2012 5:51 AM CDT [facility] Potassium 2.7(L) 3.5 - 5.1 mmol/L 09/21/2012 5:51 AM CDT [facility] Chloride 101 98 - 107 mmol/L 09/21/2012 5:51 AM CDT [facility] CO2 28 22 - 31 mmol/L 09/21/2012 5:51 AM CDT [facility] Calcium 9.2 8.5 - 10.1 mg/dL 09/21/2012 5:51 AM CDT [facility] Anion Gap 12 5 - 15 mmol/L 09/21/2012 5:51 AM CDT [facility] BUN 16 7 - 21 mg/dL 09/21/2012 5:51 AM CDT [facility] Creatinine 0.77 0.50 - 1.30 mg/dL 09/21/2012 5:51 AM CDT [facility] eGFR by MDRD >60 >60 ml/min/1.7 3m2 09/21/2012 5:51 AM CDT [facility] eGFR by MDRD >60 >60 ml/min/1.7 3m2 09/21/2012 5:51 AM CDT [facility] Blood specimen (specimen) BLOOD SPECIMEN / Unknown 09/21/2012 5:20 AM CDT 09/21/2012 5:30 AM CDT Garth Masters MD LAB - CHEMISTRY [facility] Organization Address City/State/ZIP Co de Phone Number [facility] [address] [place] [phone] * CARDIAC CATH CONSULT (09/20/2012 12:00 PM CDT) 09/20/2012 12:0 0 PM CDT Narrative Transcriptions Garth Masters MD - 09/20/2012 6:11 PM CDT [facility] CARDIAC CATHETERIZATION PATIENT: VILLA ALSTON MR#: [id number] ADMIT DATE: 09/20/2012 CSN: [id number] PROCEDURE DATE: 09/20/2012 :1945 PHYSICIAN: Garth Masters MD ROOM[facility] REFERRING PHYSICIAN: GARTH MASTERS INDICATION: The patient is a very pleasant 66-year-old gentleman withhistory of coronary artery disease, a recent markedly abnormal stress test inthe setting of dyspnea and angina. Coronary angiography in [place], [place]2 weeks ago revealed severe 2-vessel coronary [...] obtained via right femoral artery using a7- Polish sheath advanced over the wire without difficulty after localanesthesia was applied using 1% lidocaine. The right coronary artery was initially cannulated using a 7-Polish AL-0.75 guide catheter, which was replacedwith a 7-Polish FR4 guide catheter for better guide support. [...] arterypuncture site hemostasis was achieved using an 8-Polish Angio-Seal device without complications. CONCLUSION: 1. Successful percutaneous coronary intervention, rotationalatherectomy, and implantation of a 3.0 x 26 mm Resolute drug-eluting stent in the proximal right coronary artery. 2. Successful percutaneous vascular access closure. PLAN: The patient will be admitted to telemetry and will receive aspirinand Plavix daily. Beta johanne, lipid-lowering and antihypertensive therapywill be continued. GARTH MASTERS MD ECA/MODL #: [id number] MEDICAL/SURGICAL CARDIAC CATHETERIZATION - DP Garth Masters MD ECHO ORDERABLES [facility] CARDIAC SERVICES Care Teams Dietetic Tech Relationship Specialty Start Date End Date Wesley Em MD PCP - General Internal Medicine 09/20/12
--- OUTSIDE RECORDS SUMMARY | 2024-06-18 18:02 | XMS_ITS | Encounter Summary ---
Author Organization [facility] Address [address] [place] [address] Care Team Providers Care Granite Polisher Apprentice Name Role Phone Wesley Em MD Primary Care Provider Unavail able Encounter Details Date Type Department Care Team (Latest Contact Info) Description 05/27/2024 1:30 PM FAMILY SERVICES WORKER Testing Visit [facility] [address] [place] [phone] Keesha Bateman, Aung [address] [place] [address] [address] [place] [address] Sensorineural hearing loss (SNHL) of both ears Social History Tobacco Use Types Packs/Day Years [...] st Contact Info) Description 07/11/2024 10:30 AM FAMILY SERVICES WORKER Office Visit [facility] - Geriatrics [address] [place] [phone] Liza Morrow MD [address] [place] [address] 07/16/2024 10:00 AM FAMILY SERVICES WORKER Office Visit [facility] - Ophthalmology [address] [place] [phone] Shahriar Young MD [address] [place] [address] [place] [address] documented as of this encounter Procedures Procedure Name Priority Date/Time Associated Diagnosis Comments AUDIOLOGY/TYMPANOME TRY ORDER Routine 05/27/2024 1:26 PM FAMILY SERVICES WORKER documented in this encounter Results * AUDIOLOGY/TYMPANOMETRY ORDER (05/27/2024 1:26 PM FAMILY SERVICES WORKER) Miguel Angel Valdezsosa Aung Thao - 05/27/2024 1:50 PM FAMILY SERVICES WORKER History: Villa Zuniga arrived for a hearing [...] pending interest/medical clearance. Aung Garcia. CCC-A Clinical Titrator [facility]-Department of Otolaryngology/Audiology [facility] [address] [place] [address]. ([facility]) [place] [address] Keesha Horan AUDIOLOGY SERVICES O RDERABLES documented in this encounter Visit Diagnoses Diagnosis Sensorineural hearing loss (SNHL) of both ears- Primary documented in this encounter Care Teams Granite Polisher Apprentice Relationship Specialty Start Date End Date Wesley Em MD PCP - General Internal Medicine 09/20/12 documented as of this encounter
--- OUTSIDE RECORDS SUMMARY | 2024-06-18 18:02 | XMS_ITS | Encounter Summary ---
Author Organization [facility] Address [address] [place] [address] Care Team Providers Care Catastrophe Claims Supervisor Name Role Phone Wesley Em MD Primary Care Provider Unavail able Encounter Details Date Type Department Care Team (Latest Contact Info) Description 01/19/2024 Travel Social History Tobacco Use Types Packs/Day [...] st Contact Info) Description 07/11/2024 10:30 AM CREW LEADER Office Visit [facility] - Geriatrics [address] [place] [phone] Liza Morrow MD [address] [place] [address] 07/16/2024 10:00 AM CREW LEADER Office Visit [facility] - Ophthalmology [address] [place] [phone] Shahriar Young MD [address] [place] [address] DEPT [phone] documented as of this encounter Visit Diagnoses Not on filedocumented in this encounter Care Teams Catastrophe Claims Supervisor Relationship Specialty Start Date End Date Wesley Em MD PCP - General Internal Medicine 09/20/12 documented as of this encounter
--- OUTSIDE RECORDS SUMMARY | 2024-06-18 18:02 | XMS_ITS | Encounter Summary ---
Author Organization [facility] Address [address] [place] [address] Care Team Providers Care Business Programmer Name Role Phone Wesley Em MD Primary Care Provider Unavail able Reason for Visit * Reason Comments Follow-up 1 year Encounter Details Date Type Department Care Team (Latest Contact Info) Description 05/07/2014 2:15 PM POWDER BLENDER Office Visit [facility] [employer] [facility] [address] [facility] [address] [place] [address] [place] [address] [facility] [address] [place], [place] [phone] Coronary atherosclerosis of [place] coronary artery (Primary Dx); Essential hypertension, benign; Dyslipidemia; Stented coronary artery; DM (diabetes mellitus) (HCC) Social History Tobacco [...] Sign Reading Time Taken Comments Blood Pressure 170/106 05/07/2014 2:36 PM POWDER BLENDER Pulse 86 05/07/2014 2:36 PM POWDER BLENDER Temperature - - Respiratory Rate 16 05/07/2014 2:36 PM POWDER BLENDER Oxygen Saturation - - Inhaled Oxygen Concentration - - Weight 90.7 kg (200 lb) 05/07/2014 2:36 PM POWDER BLENDER Height 172.7 cm (5' 8 ) 05/07/2014 2:36 PM POWDER BLENDER Body Mass Index 30.41 05/07/2014 2:36 PM POWDER BLENDER documented in this encounter Progress Notes * Mercedes Pacheco - 05/08/2014 10:04 AM CST Per documentation changed 414.00 (CAD, unspecified) to 414.01 (CAD, [place] coronary artery). ER BLENDER * Garth Millan MD - 05/07/2014 2:45 PM CST Cardiology Follow up Visit PCP: Wesley Em SUBJECTIVE: Villa Zuniga comes today for follow up visit. Current diagnoses include hypertension, hyperlipidemia, 2-V CAD, PCI to CFX 08/15 for abnormal stress test, staged roto/stent RCA 09/12, DM, and Polycythemia Vera. Since last visit he has done well without angina, dyspnea. His BP often is very low, and most recently he had phlebotomy for PV. Family and Social History/Risk Factors: Premature CAD: [...] symptoms Dermatological ROS: negative PHYSICAL EXAM: BP 170/106 Pulse 86 Resp 16 Wt 90.719 kg (200 lb) BMI 30.42 kg/m2 General appearance: alert, cooperative, no distress [...] Successful percutaneous vascular access closure. No results found for this basename: CHOL, TRIG, HDL, LDLCALC, in the last 27749 hours ASSESSMENT/PLAN: 1. CAD: doing well post PCI. Continue current regimen 2. Hypertension: suboptimally controlled. Medications being adjusted by Dr Em. 3. Dyslipidemia 4. DM 5. Polycythemia Vera. 6. Follow up in 6 months. Garth Millan MD 05/07/2014 2:45 PM ER BLENDER * Yeimi Joshua - 05/07/2014 2:39 PM CST Villa Zuniga is a 68 y.o. male BP 170/106 Pulse 86 Resp 16 Wt 90.719 kg (200 lb) BMI 30.42 kg/m2 Chief Complaint Patient presents with ??? Follow-up 1 year ER BLENDER documented in this encounter Miscellaneous Notes * Addendum Note - Mercedes Pacheco - 05/08/2014 10:05 AM CSTAddended by: MERCEDES PACHECO on: 05/08/2014 10:05 AM Modules accepted: Level of Service ER BLENDER documented in this encounter Plan of Treatment Upcoming Encounters Date Type Department Care Team (Late st Contact Info) Description 07/11/2024 10:30 AM POWDER BLENDER Office Visit [facility] [address] [place] [address], [facility] [place] [phone] Liza Morrow MD [address] [place] [address]. [place] [address] 07/16/2024 10:00 AM POWDER BLENDER Office Visit [facility] Ophthalmology [address] [place] [phone] Shahriar Young MD [address] [place] [address] [place] [phone] documented as of this encounter Visit Diagnoses Diagnosis Coronary atherosclerosis of [place] coronary artery- Primary Essential hypertension, benign Dyslipidemia Other and unspecified hyperlipidemia Stented coronary artery Postsurgical percutaneous transluminal coronary angioplasty status DM (diabetes mellitus) (HCC) Type II or unspecified type diabetes mellitus without mention of complication, not stated as uncontrolled documented in this encounter Care Teams Business Programmer Relationship Specialty Start Date End Date Wesley Em MD PCP - General Internal Medicine 09/20/12 documented as of this encounter
--- OUTSIDE RECORDS SUMMARY | 2024-06-18 18:02 | XMS_ITS | Encounter Summary ---
Author Organization [facility] Address [address] [place] [address] Care Team Providers Care Automatic Operator Name Role Phone Wesley Em MD Primary Care Provider Unavail able Reason for Visit * Reason Comments Coronary Artery Disease Encounter Details Date Type Department Care Team (Late st Contact Info) Description 11/22/2016 2:10 PM CDT Office Visit [facility] [employer] [facility] [address] [facility] [address] [place] [address] [place] [address] [facility] [address] [place], [place] [phone] CAD in [place] artery (Primary Dx); Stented coronary artery; Dyslipidemia; [...] Sign Reading Time Taken Comments Blood Pressure 129/72 11/22/2016 2:26 PM CDT Pulse 61 11/22/2016 2:26 PM CDT Temperature - - Respiratory Rate - - Oxygen Saturation - - Inhaled Oxygen Concentration - - Weight 83.5 kg (184 lb) 11/22/2016 2:26 PM CDT Height 175.3 cm (5' 9 ) 11/22/2016 2:26 PM CDT Body Mass Index 27.17 11/22/2016 2:26 PM CDT documented in this encounter Progress Notes * Garth Millan MD - 11/22/2016 3:06 PM CDT Cardiology Follow up Visit PCP: [...] out his daily activities without difficulty. He has had multiple urological procedures for nephrolithiasis. Family and Social History/Risk Factors: Premature CAD: [...] symptoms Dermatological ROS: negative PHYSICAL EXAM: BP 129/72 (BP SITE: LEFT ARM, BP POSITION: SITTING, BP CUFF SIZE: Adult) Pulse 61 Ht 1.753 m (5' 9 ) Wt 83.5 kg (184 lb) BMI 27.17 kg/m2 General appearance: alert, cooperative, no distress [...] CHOL, TRIG, HDL, LDLCALC in the last 03561 hours. ASSESSMENT/PLAN: 1. CAD: doing well post PCI. Will continue current regimen. 2. Hypertension: usually well controlled 3. Dyslipidemia: followed by Dr Em. 4. DM 5. Polycythemia Vera. 6. Follow up in 6 months. Garth Millan MD 11/22/2016 3:06 PM documented in this encounter Plan of Treatment Upcoming Encounters Date Type Department Care Team (Late st Contact Info) Description 07/11/2024 10:30 AM MID WIFE Office Visit [facility] - Geriatrics [address] [place] [phone] Liza Morrow MD [address] [place] [address] 07/16/2024 10:00 AM MID WIFE Office Visit [facility] Ophthal[facility] [address] [place] [phone] Shahriar Young MD [address] [place] [address] [place] [address] documented as of this encounter Visit Diagnoses Diagnosis CAD in [place] artery- Primary Coronary atherosclerosis of [place] coronary artery Stented coronary artery Postsurgical percutaneous transluminal coronary angioplasty status Dyslipidemia Other and unspecified hyperlipidemia Essential hypertension, benign documented in this encounter Care Teams Automatic Operator Relationship Specialty Start Date End Date Wesley Em MD PCP - General Internal Medicine 09/20/12 documented as of this encounter
--- OUTSIDE RECORDS SUMMARY | 2024-06-18 18:02 | XMS_ITS | Encounter Summary ---
Author Organization [facility] Address [address] [place] [address] Care Team Providers Care Traffic Maintenance Supervisor Name Role Phone Wesley Em MD Primary Care Provider Unavail able Reason for Visit * Reason Comments Coronary Artery Disease Follow-up 6 month Encounter Details Date Type Department Care Team (Late st Contact Info) Description 11/28/2017 1:30 PM CDT Office Visit [facility] [address] [facility] [address] [place] [address] [place] [address] [facility] [address] [place] [address] CAD in [place] artery (Primary Dx); Essential hypertension; Dyslipidemia; Stented coronary artery Social History Tobacco Use [...] Sign Reading Time Taken Comments Blood Pressure 175/90 11/28/2017 1:22 PM CDT Pulse 60 11/28/2017 1:22 PM CDT Temperature - - Respiratory Rate - - Oxygen Saturation - - Inhaled Oxygen Concentration - - Weight 89.4 kg (197 lb) 11/28/2017 1:22 PM CDT Height 175.3 cm (5' 9 ) 11/28/2017 1:22 PM CDT Body Mass Index 29.09 11/28/2017 1:22 PM CDT documented in this encounter Patient Instructions * Patient Instructions* Gregoria Atkins - 11/28/2017 1:20 PM CDT Dear Villa Zuniga, So we can provide you an even better experience we are collecting feedback on how we performed at your visit today. In a couple of weeks you will receive a survey via e-mail or mail. We would greatlyappreciate insight as we continue to improve our patient experience. Thank you for you time! documented in this encounter Progress Notes * Garth Millan MD - 11/28/2017 1:31 PM CDT Cardiology Follow up Visit PCP: [...] blood pressure medicine late todaydue to schedule issues, but his BP usually is better controlled. Family and Social History/Risk Factors: Premature CAD: [...] symptoms Dermatological ROS: negative PHYSICAL EXAM: BP 175/90 Pulse 60 Ht 1.753 m (5' 9 ) Wt 89.4 kg (197 lb) BMI 29.09 kg/m2 General appearance: alert, cooperative, no distress [...] CHOL, TRIG, HDL, LDLCALC in the last 68050 hours. ASSESSMENT/PLAN: 1. CAD: doing well post PCI. Will continue current regimen. 2. Hypertension: usually well controlled 3. Dyslipidemia: followed by Dr Em. 4. DM 5. Polycythemia Vera. 6. Follow up in 6 months. Garth Millan MD 11/28/2017 1:32 PM documented in this encounter Plan of Treatment Upcoming Encounters Date Type Department Care Team (Late st Contact Info) Description 07/11/2024 10:30 AM TABULATING CLERK Office Visit [facility] [address] [place] [phone] Liza Morrow MD [address] [place] [phone] 07/16/2024 10:00 AM TABULATING CLERK Office Visit [facility] Ophthalmology [address] [place] [phone] Shahriar Young MD [address] [place] [address] [place] [phone] documented as of this encounter Visit Diagnoses Diagnosis CAD in [place] artery- Primary Coronary atherosclerosis of [place] coronary artery Essential hypertension Dyslipidemia Other and unspecified hyperlipidemia Stented coronary artery Postsurgical percutaneous transluminal coronary angioplasty status documented in this encounter Care Teams Traffic Maintenance Supervisor Relationship Specialty Start Date End Date Wesley Em MD PCP - General Internal Medicine 09/20/12 documented as of this encounter
--- OUTSIDE RECORDS SUMMARY | 2024-06-18 18:02 | XMS_ITS | Encounter Summary ---
Author Organization [facility] Address [address] [place] [address] Care Team Providers Care Thermite Welder Name Role Phone Wesley Em MD Primary Care Provider Unavail able Encounter Details Date Type Department Care Team (Latest Contact Info) Description 04/22/2024 Travel Social History Tobacco Use Types Packs/Day [...] st Contact Info) Description 07/11/2024 10:30 AM GYPSUM CALCINER Office Visit [facility] [address] [place] [phone] Liza Morrow MD [address] [place] [phone] 07/16/2024 10:00 AM GYPSUM CALCINER Office Visit [facility] [address] [place] [phone] Shahriar Young MD [address] [place] [address] [place] [phone] documented as of this encounter Visit Diagnoses Not on filedocumented in this encounter Care Teams Thermite Welder Relationship Specialty Start Date End Date Wesley Em MD PCP - General Internal Medicine 09/20/12 documented as of this encounter
--- OUTSIDE RECORDS SUMMARY | 2024-06-18 18:02 | XMS_ITS | Encounter Summary ---
Author Organization [facility] Address [address] [facility] [place] [address] Care Team Providers Care Rn Medical Surgical Name Role Phone Wesley Em MD Primary Care Provider Unavail able Reason for Visit * Reason Onset Date Comments Medication Clarification 09/20/2012 Encounter Details Date Type Department Care Team (Late st Contact Info) Description 09/20/2012 Telephone [facility] [address] [facility] [address] [place] [address] [place] [address] [facility] [address] [place] [address] Medication Clarification Social History Tobacco Use Types Packs/Day Years Used Date Smoking Tobacco: Former Alcohol Use Standard Drinks/Week Comments Not Asked 0 (1 standard drink = 0.6 oz pur e alcohol) Sex and Gender Information Value Date Recorded Sex Assigned at Not on file Gender Identity Not on file Sexual Orientation Not on file documented as of this encounter Miscellaneous Notes * Telephone Encounter - Tiffanie Crain MA - 09/20/2012 10:30 AM CDT Spoke with patients and clarified medications for Villa to stop and stay on. Ok to continue Aspirin and Plavix. Hold Metformin day before and day of. Do not take water pill day of procedure. understands and states he has held the Metformin. Light breakfast this morning. * Telephone Encounter - Chela Broussard - 09/20/2012 8:51 AM CDT Patients wants to confirm what meds her should and shouldn't take for cath tomorrow. Please call her back. documented in this encounter Plan of Treatment Upcoming Encounters Date Type Department Care Team (Late st Contact Info) Description 07/11/2024 10:30 AM METAL DRESSER Office Visit [facility] [address] [place] [phone] Liza Morrow MD [address] [place] [phone] 07/16/2024 10:00 AM METAL DRESSER Office Visit [facility] - Ophthalmology [address] [place] [phone] Shahriar Young MD [address] [place] [address] [place] [phone] documented as of this encounter Visit Diagnoses Not on filedocumented in this encounter Care Teams Rn Medical Surgical Relationship Specialty Start Date End Date Wesley Em MD PCP - General Internal Medicine 09/20/12 documented as of this encounter
--- OUTSIDE RECORDS SUMMARY | 2024-06-18 18:02 | XMS_ITS | Encounter Summary ---
Author Organization [facility] Address [address] [facility] [place] [address] Care Team Providers Care Leadership Program Intern Name Role Phone Unavailable Primary Care Provider Unavailabl e Reason for Visit * Reason Onset Date Comments Scheduling 09/12/2012 Stent RCA Encounter Details Date Type Department Care Team (Late st Contact Info) Description 09/12/2012 Telephone [facility] [address] [facility] [address] [place] [address] [place] [address] [facility] [address] [place] [address] Scheduling (Stent RCA) Social History Tobacco Use Types Packs/Day Years Used Date Smoking Tobacco: Never Assessed Sex and Gender Information Value Date Recorded Sex Assigned at Not on file Gender Identity Not on file Sexual Orientation Not on file documented as of this encounter Miscellaneous Notes * Telephone Encounter - Tiffanie Crain MA - 09/12/2012 4:17 PM CDT Received fax from [facility] requesting a Cath be set up for pt per . Pt scheduled 132:30 pm @ [facility]. Pt aware of date, time, location, and prep. Medicare primary, NO AUTH needed. documented in this encounter Plan of Treatment Upcoming Encounters Date Type Department Care Team (Late st Contact Info) Description 07/11/2024 10:30 AM SASH INSTALLER Office Visit [facility] [address] [place] [phone] Liza Morrow MD [address] [place] [phone] 07/16/2024 10:00 AM SASH INSTALLER Office Visit [facility] Ophthalmology [address] [place] [address], [place] [phone] Shahriar Young MD [address] [place] [address] [place] [phone] documented as of this encounter Visit Diagnoses Not on filedocumented in this encounter
--- OUTSIDE RECORDS SUMMARY | 2024-06-18 18:02 | XMS_ITS | Encounter Summary ---
Author Organization [facility] Address [address] [place] [address] Care Team Providers Care Procedures Nurse Name Role Phone Wesley Em MD Primary Care Provider Unavail able Encounter Details Date Type Department Care Team (Late Contact Info) Description 09/25/2020 Orders Only [facility] Medical [facility] - COVID Vax [address] [place] [phone] Jaquan Burton MD [address] [phone] Need for vaccination Social History Tobacco Use Types Packs/Day Years [...] (Late Contact Info) Description 07/11/2024 10:30 AM DIRECTOR UTILIZATION MANAGEMENT Office Visit [facility] [address] [place] [phone] Liza Morrow MD [address] [place] [address] 07/16/2024 10:00 AM DIRECTOR UTILIZATION MANAGEMENT Office Visit [facility] [address] [place] [phone] Shahriar Young MD [address] [place] [phone] documented as of this encounter Visit Diagnoses Diagnosis Need for vaccination Need for prophylactic vaccination and inoculation against unspecified single disease documented in this encounter Care Teams Procedures Nurse Relationship Specialty Start Date End Date Wesely Em MD PCP - General Internal Medicine 09/20/12 documented as of this encounter
--- OUTSIDE RECORDS SUMMARY | 2024-06-18 18:03 | XMS_ITS | Encounter Summary ---
Author Organization [facility] Address [address] [place] [address] Care Team Providers Care Hatchery Worker Name Role Phone Trey Pinedo MD Unavailable [phone] Christine Herzog MD Primary Care Provide r Albert Craft MD Unavailable [phone] Chintan Figueroa MD Unavailable [phone] Jameel Bloom DPM Unavailable [phone] Gadiel Genao MD Unavailable [phone] Reason for Referral * Consultation (Elective) - Authorized Specialty Diagnoses / Procedures Referred By Contdayami t Referred To Contact Gastroenterology Diagnoses Nausea Appetite loss Christine Herzog MD [address] [place] [address] [address] [place] [address] Phone: tel: fax: [facility] Gastroenterology at [address] [place] [address] Phone: tel: fax: Referral ID Status Reason Start Date Expiration Date Visits Requested Visits Authorized [id number] Authorized Specialty Services Required 12/14/2023 01/12/2025 1 1 Question Answer Please select the performing region: [facility] [[id number]] Please select the performing department: [facility] [[id number]] # of visits: 1 Encounter Details Date Type Department Care Team (Late st Contact Info) Description 12/14/2023 Orders Only [facility] Medical [facility] at [place] [address] [facility] [address] [place] [phone] Christine Herzog MD [address] [facility] [address] [place] [address] Nausea (Primary Dx); Appetite loss; Healthcare maintenance; Need for hepatitis B screening test Social History Tobacco Use Types Packs/Day Years Used Date Smoking Tobacco: Former Cigarettes 1 40 1 969 - 2009 Smokeless Tobacco: Never Comments:Quit in 2009 Alcohol Use Standard Drinks/Week Comments No 0 (1 standard drink = 0.6 oz pur e alcohol) OASIS D0700: Social Isolation Answer Da te Recorded Frequency of experiencing loneliness or isolatio n Never 09/26/2022 OASIS A1250: Transportation Answer Date Recorded Lack of Transportation (Medical) No 09/26/2022 Lack of Transportation (Non-Medical) No 09/26/2022 Patient Unable or Declines to Respond No 09/26/2022 OASIS B1300: Health Literacy Answer Marin e Recorded Frequency of needing help to read materials from doctor or pharmacy Sometimes 09/26/2022 Social Connection and Isolat ion Panel [NHANES] Answer Date Recorded In a typical week, how many times do you talk on the phone with family, friends, or neighbors? More than three times a week 09/28/2022 How often do you get togethe r with friends or relatives? More than three times a week 09/28/2022 How often do you attend chur ch or moravian services? Patient declined 09/28/2022 Do you belong to any clubs o r organizations such as scientologist groups, unions, fraternal or athletic groups, or school groups? Patient declined 09/28/2022 How often do you attend meet ings of the clubs or organizations you belong to? Patient declined 09/28/2022 Are you , , di vorced, , never , or living with a partner? 09/28/2022 AUDIT-C Answer Date Recorded Q1: How often do you have a drink containing alcohol? Never 08/06/2022 Q2: How many drinks containi ng alcohol do you have on a typical day when you are drinking? Patient does not drink Q3: How often do you have si x or more drinks on one occasion? Never 08/06/2022 Overall Financial Resource Strain (CARDIA) Answe r Date Recorded How hard is it for you to pa y for the very basics like food, housing, medical care, and heating? Not very hard 09/28/2022 PHQ-2 Answer Date Recorded PHQ-2 Total Score (If total score is 3 or more points, staff should administer the PHQ-9) 0 12/14/2023 PRAPARE - Transportation Answer Date Re corded In the past 12 months, has l ack of transportation kept you from medical appointments or from getting medications? No 09/01 In the past 12 months, has l ack of transportation kept you from meetings, work, or from getting things needed for daily living? No 09/28/2022 Housing Stability Vital Sign Answer Marin e Recorded In the last 12 months, was t here a time when you were not able to pay the mortgage or rent on time? No 09/28/2022 In the last 12 months, how many places have you lived? 2 09/28/2022 In the last 12 months, was t here a time when you did not have a steady place to sleep or slept in a [place] facility (including now)? No 09/28/2022 Personal Safety Answer Date Recorded Have you ever been in or are you currently in a harmful physical or emotional relationship or is someone making you feel afraid or unsafe? Denies 09/25/2022 Sex and Gender Information Value Date Recorded Sex Assigned at Not on file 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 TEST SKEIN WINDER Gender Identity Not on file Sexual Orientation Straight 01/23/2021 10 :16 PM CDT documented as of this encounter Plan of Treatment Scheduled Orders Name Type Priority Associated Diagnoses Orde r Schedule CBC with auto differential Lab Routine Healthcare maintenance Expected: 04/15/2024, Expires: 12/13/2024 Comprehensive metabolic panel Lab Routine Healthcare maintenance Expected: 04/15/2024 (Approximate), Expires: 12/13/2024 Thyroid Function [place] Lab Routine Healthcare maintenance Expected: 04/15/2024, Expires: 12/13/2024 Hemoglobin A1c Lab Routine Healthcare maintenance Expected: 04/15/2024, Expires: 12/13/2024 Albumin Creatinine Ratio, Urine Lab Routine Healthcare maintenance Expected: 04/15/2024, Expires: 12/13/2024 Hepatitis B surface antibody (immune status) Blood Microbiology Routine Healthcare maintenance Need for hepatitis B screening test Expected: 04/15/2024, Expires: 12/13/2024 Hepatitis B Surface Antigen Blood Microbiology Routine Healthcare maintenance Need for hepatitis B screening test Expected: 04/15/2024, Expires: 12/13/2024 Hepatitis B core antibody, total Blood Microbiology Routine Healthcare maintenance Need for hepatitis B screening test Expected: 04/15/2024, Expires: 12/13/2024 Scheduled Referrals Name Type Priority Associated Diagnoses Order Schedule Ambulatory referral to Gastroenterology Outpatient Referral Routine Nausea Appetite loss Expected: 12/14/2023 (Approximate), Expires: 12/13/2024 documented as of this encounter Goals Goal Patient Goal Type Associated Problems Recent Progress Patient-Stated? Author GULSHAN General Goal - Patient schedules and keeps appointments with all recommended providers ACO Care Management On track(2022 11:14 AM TEST SKEIN WINDER) Sepideh Guo, RN Note: Problem: Potential for medical complications and readmission if follow-up appointments are not scheduled Interventions: - Ensure all follow-up appointments are scheduled, all prescribed medications have been received. - Address any barriers for keeping scheduled appointment. - Coordinate with patient/caregiver(s) to ensure patient is able to keep scheduled appointment. - Emphasize importance of keeping scheduled appointments. - Identify and discuss questions for next provider visit. - Follow up with patient after scheduled appointment(s) to review any new orders or changes made to medication regimen. documented as of this encounter Visit Diagnoses Diagnosis Nausea- Primary Nausea alone Appetite loss Anorexia Healthcare maintenance Need for hepatitis B screening test documented in this encounter Care Teams Hatchery Worker Relationship Specialty Start Date End Date Christine Herzog MD [address] [place] [address] [place] [address] PCP - General Internal Medicine 12/02/21 Trey Pinedo MD [address] [place] [address] [address] [place] [address] Consulting Physician Neurology 05/09/19 Albert Craft MD [address] [place] [address] [address] [place] [address] Consulting Physician Gastroenterology 03/11/22 Chintan Figueroa MD [address] [place] [address] [address] [place] [address] Consulting Physician Hematology and Oncology 03/11/22 Jameel Bloom DPM [address] [place] [address] Consulting Physician Orthotics 03/11/22 Gadiel Genao MD [address] [place] [address] Surgeon Vascular Surgery 03/11/22 documented as of this encounter
--- OUTSIDE RECORDS SUMMARY | 2024-06-18 18:03 | XMS_ITS | Encounter Summary ---
Author Organization [facility] Healthcare Address [address] [place] [address] Care Team Providers Care Section 8 Property Manager Name Role Phone Trey Pinedo MD Unavailable [phone] Christine Herzog MD Primary Care Provide r Albert Craft MD Unavailable [phone] Chintan Figueroa MD Unavailable [phone] Jameel Bloom DPM Unavailable [phone] Gadiel Genao MD Unavailable [phone] Encounter Details Date Type Department Care Team (Late st Contact Info) Description 03/02/2024 10:00 AM CDT [address] [id number] Social History Tobacco Use Types Packs/Day Years [...] often do you attend chur ch or restorationism services? Patient declined 09/28/2022 Do you belong to any clubs o r organizations such as moravian groups, unions, fraternal or athletic groups, or school groups? Patient declined 09/28/2022 How often do you attend meet ings of the clubs or organizations you belong to? Patient declined 09/28/2022 Are you , , di vorced, , never , or living with a partner? 09/28/2022 AUDIT-C Answer Date Recorded Q1: How often do you have a drink containing alcohol? Never 01/05/2024 Q2: How many drinks containi ng alcohol do you have on a typical day when you are drinking? Patient does not drink Q3: How often do you have si x or more drinks on one occasion? Never 01/05/2024 Overall Financial Resource Strain (CARDIA) Answe r [...] place to sleep or slept in a care home (including now)? No 09/28/2022 Personal Safety Answer Date Recorded Have you ever been in or are you currently in a harmful physical or emotional relationship or is someone making you feel afraid or unsafe? 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 Author GULSHAN General Goal - Patient schedules and keeps appointments with all recommended providers [facility]CO Care Management On track(2022 11:14 AM FORESTRY AIDE) No Sepideh Hi RN Note: Problem: Potential for medical complications [...] medication regimen. documented as of this encounter Procedures Procedure Name Priority Date/Time Associated Diagnosis Comments EGFR Routine 03/02/2024 10:13 AM CDT DIFFERENTIAL AUTO Routine 03/02/2024 10: 13 AM CDT CBC WITH AUTO DIFFERENTIAL Routine 03/02/2024 10:13 AM CDT LIPID PANEL Routine 03/02/2024 10:13 AM CDT COMPREHENSIVE METABOLIC PANEL Routine 03/02/2024 10:13 AM CDT documented in this encounter Results * (ABNORMAL) eGFR (03/02/2024 10:13 AM CDT) Pathologist [facility] eGFR 57(L) >=60 mL/min/1. 73 m2 Comment: Interpretive Data Reference Interval Normal ?>/= 90 mL/min/1.73m2 Mildly decreased* ? 60 - 89 mL/min/1.73m2 Mildly to moderately decreased ?45 - 59 mL/min/1.73m2 Moderately to severely decreased ??30 - 44 mL/min/1.73m2 Severely decreased ?15 - 29 mL/min/1.73m2 Kidney Failure ?< 15 ??mL/min/1.73m2 *Relative to young adult level Estimated glomerular filtration rate is determined by the 2020 CKD-EPI equation recommended by the National Kidney Foundation (A Unifying Approach to GFR Estimation: Recommendations of the NKF-ASK Task Force on Reassessing the Inclusion of Race in Diagnosing Kidney Disease, JASN 2020). The CKD-EPI equation should not be used for patients with unstable renal function and has not been validated in children and those over 70. Current interpretive data was last reviewed 2021. Blood 03/02/2024 10:1 3 AM CDT 03/02/2024 10:43 AM CDT us Bijal Galindo MD LAB BLOOD ORDERABLES Final R esult [facility] ([place]) 1 [facility] Department of Laboratories [place], [place] [id number] * Differential, auto (03/02/2024 10:13 AM CDT) Neutrophil abs 3.7 1.5 - 6.5 K/cumm Imm gran abs 0.0 0.0 - 0.1 K/cumm [facility] ([facility]) Lymphocyte abs 1.4 0.8 - 3.3 K/cumm [facility] ([place]) Monocyte abs 0.6 0.2 - 0.8 K/cumm [facility] ([place]) Eosinophil abs 0.2 0.0 - 0.5 K/cumm [facility] ([place]) Basophil abs 0.1 0.0 - 0.1 K/cumm [facility] ([place]) Neutrophil pct 61.3 % [facility] ([place]) Comment: Interpretive Data Percent cell count reference ranges are not reported, since discordance with absolute values may lead to misinterpretation of CBC data. Current Interpretive Data was last revised on 2017. Imm gran pct 0.3 % [facility] ([place]) Comment: Interpretive Data Percent cell count reference ranges are not reported, since discordance with absolute values may lead to misinterpretation of CBC data. Current Interpretive Data was last revised on 2017. Lymphocyte pct 23.3 % [facility] ([place]) Comment: Interpretive Data Percent cell count reference ranges are not reported, since discordance with absolute values may lead to misinterpretation of CBC data. Current Interpretive Data was last revised on 2017. Monocyte pct 9.9 % [facility] ([place]) Comment: Interpretive Data Percent cell count reference ranges are not reported, since discordance with absolute values may lead to misinterpretation of CBC data. Current Interpretive Data was last revised on 2017. Eosinophil pct 3.1 % [facility] ([place]) Comment: Interpretive Data Percent cell count reference ranges are not reported, since discordance with absolute values may lead to misinterpretation of CBC data. Current Interpretive Data was last revised on 2017. Basophil pct 2.1 % [facility] ([place]) Comment: Interpretive Data Percent cell count reference ranges are not reported, since discordance with absolute values may lead to misinterpretation of CBC data. Current Interpretive Data was last revised on 2017. Blood 03/02/2024 10:1 3 AM CDT 03/02/2024 10:43 AM CDT us Bijal Galindo MD LAB BLOOD ORDERABLES Final R esult [facility] ([place]) 1 [facility] Department [place] [address] * (ABNORMAL) CBC with auto differential (03/02/2024 10:13 AM CDT) [facility] WBC 6.1 3.8 - 9.9 K/cumm Hgb 13.7 13.0 - 17.5 g/dL [facility] ([place]) Hct 46.2 38.9 - 50.3 % [facility] ([place]) Plt 236 150 - 400 K/cumm [facility] ([place]) MPV 10.6 9.1 - 12.3 fL [facility] ([place]) RBC 5.98(H) 4.30 - 5.80 M/cumm [facility] ([place]) MCV 77.3(L) 81.3 - 96.4 fL [facility] ([place]) MCH 22.9(L) 27.1 - 33.3 pg [facility] ([place]) MCHC 29.7(L) 32.3 - 35.7 g/dL [facility] ([place]) RDW CV 18.2(H) 11.1 - 14.9 % [facility] ([place]) RDW SD 47.8 35.7 - 48.1 fL [facility] ([place]) NRBC abs 0.00 0.00 - 0.01 K/cumm [facility] ([place]) Blood 03/02/2024 10:1 3 AM CDT 03/02/2024 10:43 AM CDT us Bijal Galindo MD LAB BLOOD ORDERABLES Final R esult [facility] ([place]) 1 [facility] [place] [address] * (ABNORMAL) Comprehensive metabolic panel (03/02/2024 10:13 AM CDT) [facility] Sodium 140 135 - 145 mmol/L Potassium, pl 4.3 3.3 - 4.9 mmol/L [facility] ([place]) Chloride 105 97 - 110 mmol/L [facility] ([facility]) CO2 24 22 - 32 mmol/L [facility] ([place]) Anion gap 12 2 - 15 mmol/L [facility] ([place]) BUN 31(H) 6 - 25 mg/dL [facility] ([place]) Creatinine 1.29 0.80 - 1.30 mg/dL [facility] ([place]) Glucose 101 70 - 199 mg/dL [facility] ([place]) Comment: Interpretive Data Fasting glucose >/= 126 mg/dl is diagnostic for diabetes. ?? Fasting is defined as no caloric intake for at least 8 hours. Fasting glucose between 100 mg/dl to 125 mg/dl is diagnostic of prediabetes. In a patient with classic symptoms of hyperglycemia or hyperglycemic crisis, a random glucose >/= 200 mg/dl is diagnostic for diabetes. In the absence of unequivocal hyperglycemia, results should be confirmed by repeat testing. The classification and Diagnosis of Diabetes Diabetes Care 2021; 46: S19-S40. Current interpretive data was last revised 2022. Calcium 8.7 8.5 - 10.3 mg/dL [facility] ([place]) Bilirubin, total 0.4 0.1 - 1.2 mg/dL [facility] ([place]) Protein, pl 7.0 6.5 - 8.5 g/dL [facility] ([place]) Albumin 4.5 3.5 - 5.0 g/dL [facility] ([place]) Alk phos 105 40 - 130 Units/L [facility] ([place]) ALT 15 7 - 55 Units/L [facility] ([place]) AST 13 10 - 50 Units/L [facility] ([place]) Blood 03/02/2024 10:1 3 AM CDT 03/02/2024 10:43 AM CDT us Bijal Galindo MD LAB BLOOD ORDERABLES Final R esult [facility] ([place]) 1 [facility] Department [place] [address] * Lipid panel (03/02/2024 10:13 AM CDT) Cholesterol 121 30 - 199 mg/dL Comment: Interpretive Data Ages < or = 19 years ??Acceptable: ? <170 mg/dL ??Borderline high: ??170-199 mg/dL ??High: ? >or= 200 mg/dL Ages > or = 20 years ??Desirable: ?<200 mg/dL ??Borderline high: ??200-239 mg/dL ??High: ? >or= 240 mg/dL Literature References: 1. Expert Panel on Integrated Guidelines for Cardiovascular Health and Risk Reduction in Children and Adolescents. Pediatrics 2011;128:S213 2. NCEP Expert Panel. Circulation 2004;110:227 Current Interpretive Data was last revised on 2018. Triglycerides 75 <=149 mg/dL [facility]) Comment: Interpretive Data Ages < or = 9 years ??Acceptable: ? <75 mg/dL ??Borderline high: ??75-99 mg/dL ??High: ? >or= 100 mg/dL Ages 10 to 20 years ??Acceptable: ? <90 mg/dL ??Borderline high: ??90-129 mg/dL ??High: ? >or= 130 mg/dL Ages > or = 20 years ??Desirable: ?<150 mg/dL ??Borderline high: ??150-199 mg/dL ??High: ? 200-499 mg/dL ?Very high: ?? >or= 499 mg/dL Literature References: 1. Expert Panel on Integrated Guidelines for Cardiovascular Health and Risk Reduction in Children and Adolescents. Pediatrics 2011;128:S213 2. NCEP Expert Panel. Circulation 2004;110:227 Current Interpretive Data was last revised on 2018. HDL 40 >=40 mg/dL [facility]) Comment: Interpretive Data Ages < or = 19 years ??Acceptable: ? >45 mg/dL ??Borderline low: ?? 40-45 mg/dL ??Low: ? <40 mg/dL Ages > or = 20 years ??Desirable: ?>or= 60 mg/dL ??Low: ? <40 mg/dL Literature References: 1. Expert Panel on Integrated Guidelines for Cardiovascular Health and Risk Reduction in Children and Adolescents. Pediatrics 2011;128:S213 2. NCEP Expert Panel. Circulation 2004;110:227 Current Interpretive Data was last revised on 2018. LDL, calculated 66 <=129 mg/dL [facility] ([place]) Comment: Interpretive Data Ages < or = 19 years ??Acceptable: ? <110 mg/dL ??Borderline high: ??110-129 mg/dL ??High: ?>or= 130 mg/dL Ages > or = 20 years ??Optimal: ? <100 mg/dL ??Near optimal: ?100-129 mg/dL ??Borderline high: ?? 130-159 mg/dL ??High: ?>160 mg/dL Calculated using the William LDL-C estimating equation. This equation was implemented on 2024. Prior to this date LDL-C was estimated using the Friedewald equation. Literature References: 1. Expert Panel on Integrated Guidelines for Cardiovascular Health and Risk Reduction in Children and Adolescents. Pediatrics 2011;128:S213 2. NCEP Expert Panel. Circulation 2004;110:227 3. William Reyes et al. HOLLAND Cardiol. 2020 October 31;5(5):540-548. doi: 10.1001/jamacardio.2020.0013 Current Interpretive Data was last revised on 2024. Non-HDL Cholesterol 81 mg/dL [facility] ([place]) Comment: Interpretive Data Ages < or = 19 years ??Acceptable: ?<120 mg/dL ??Borderline high: ??120-144 mg/dL ??High: ?>145 mg/dL Ages > or = 20 years ??When triglycerides are >200 mg/dL, Non-HDL cholesterol is a secondary target of ? therapy with treatment goals that are 30 mg/dL greater than the LDL cholesterol target. ? Literature References: 1. Expert Panel on Integrated Guidelines for Cardiovascular Health and Risk Reduction in Children and Adolescents. Pediatrics 2011;128:S213 2. NCEP Expert Panel. Circulation 2004;110:227 Current Interpretive Data was last revised on 2018. Chol/HDL ratio 3 [facility] ([place]) Blood 03/02/2024 10:1 3 AM CDT 03/02/2024 10:43 AM CDT Narrative [facility] ([facility]) - 03/02/2024 11:10 AM CDT fax results to [phone] us Bijal Galindo MD LAB BLOOD ORDERABLES Final R esult [facility] ([place]) 1 [facility] Department [place] [address] documented in this encounter Visit Diagnoses Not on filedocumented in this encounter Care Teams Section 8 Property Manager Relationship Specialty Start Date End Date Christine Herzog MD 2 [facility] [address] [place] [address] PCP - General Internal Medicine 12/02/21 Trey Pinedo MD 4 [facility] [address] [place] [address] Consulting Physician Neurology 05/09/19 Albert Craft MD [address] [facility] [place] [address] Consulting Physician Gastroenterology 03/11/22 Chintan Figueroa MD [address] [facility] [place] [address] Consulting Physician Hematology and Oncology 03/11/22 Jameel Bloom DPM [address] [place] [address] Consulting Physician Orthotics 03/11/22 Gadiel Genao MD [address] [place] [address] Surgeon Vascular Surgery 03/11/22 documented as of this encounter
--- OUTSIDE RECORDS SUMMARY | 2024-06-18 18:03 | XMS_ITS | Encounter Summary ---
Author Organization [facility] Address [address] [place] [address] Phone Care Team Providers Care Supervisor Sawing And Assembly Name Role Phone Trey Pinedo MD Unavailable [phone] Christine Herzog MD Primary Care Provide r Albert Craft MD Unavailable [phone] Chintan Figueroa MD Unavailable [phone] Jameel Bloom DPM Unavailable [phone] Gadiel Genao MD Unavailable [phone] Reason for Referral * Consultation (Routine) - Authorized Specialty Diagnoses / Procedures Referred By Contac t Referred To Contact Occupational Therapy Diagnoses Lewy body dementia, unspecified dementia severity, unspecified whether behavioral, psychotic, or mood disturbance or anxiety (HCC) Personal care impairment Requires daily assistance for activities of daily living (ADL) and comfort needs Caregiver stress Hypersexuality Melvi Delarosa NP [address] [facility] [id number] [place] [address] Phone: tel: fax: [facility] [address] [place] [phone] Phone: tel: fax: Referral ID Status Reason Start Date Expiration Date Visits Requested Visits Authorized [id number] Authorized Specialty Services Required 11/23/2023 12/22/2024 12 12 Question Answer PTRFR OT Evaluate and Treat Therapy options discussed with patient? Yes Location provided for therapy services is: Patient requested/Patient preferred Please select the performing region: External Order [171] To loc/pos [facility] [[id number]] Comments Please contact their son Ian at [phone] Encounter Details Date Type Department Care Team (Late st Contact Info) Description 11/23/2023 10:30 AM CDT Telemedicine [facility] [address] [place] [address] Melvi Delarosa NP [address] [facility] [id number] [place] [address] Lewy body dementia, unspecified dementia severity, unspecified whether behavioral, psychotic, or mood disturbance or anxiety (HCC) (Primary Dx); Personal care impairment; Requires daily assistance for activities of daily living (ADL) and comfort needs; Caregiver stress; Hypersexuality Social History Tobacco Use Types Packs/Day Years [...] often do you attend chur ch or mandaeism services? Patient declined 09/28/2022 Do you belong to any clubs o r organizations such as yazidi groups, unions, fraternal or athletic groups, or [...] points, staff should administer the PHQ-9) 0 03/23/2023 PRAPARE - Transportation Answer Date Re corded [...] place to sleep or slept in a halfway (including now)? No 09/28/2022 Personal Safety Answer Date Recorded Have you ever been in or are you currently in a harmful physical or emotional relationship or is someone making you feel afraid or unsafe? 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 We appreciate this opportunity to participate in your care. We have reviewed the concerns about your memory and thinking. Memory and thinking test scores today: MMSE (Mini Mental Status Exam): A perfect score on this test is 30. A score of of between 27-30 is considered normal. A score of 24-26 is considered mildly impaired. A score of 20-23 is impaired. Scores below 20 show moderate impairment and 10 or below shows severe impairment. Diagnosis We think that the changes you and your family have observed in your memory and thinking are most likely caused by: Alzheimer's dementia It will be important to re-assess your memory in the future. We can compare your test results in the future to the test results from today so we can get a more accurate picture of how your memory haschanged. Medications: We recommend you take escitalopram/Lexapro for mood, common side effects are nausea, headache, diarrhea, decreased libido, fatigue. This medication takes about a month to see improvement. You should take this medication every day. Additional Recommendations: Nutrition: We recommend that you eat a balanced diet, including fruits and vegetables daily and regular servings of fish. We recommend a heart healthy diet. Activity: We recommend that you engage in daily physical activity such as walking or stretching. Werecommend you do things that stimulate your mind, such as puzzles, books, working on hobbies, visiting with friends and relatives or engaging in other social and community activities. Sleep: Sleep can have a big effect on your memory and thinking. Make sure you get a good night's sleep every night. If you have trouble sleeping, make sure you follow these rules for basic sleep hygiene: -Get up at the same time every morning, regardless of how little or how poorly you sleep. -No napping during the day time. If naps are really necessary, nap for less than an hour and only nap before 3 PM. -Have a regular calm down time before going to bed. Do not work right up until bedtime. -Have a regular exercise schedule, as exercise helps consolidate sleep. -No caffeine for 6 hours before bedtime. -No watching T.V. or using the computer in your bedroom or at bedtime. -If you are not able to fall asleep after 20 minutes, get out of bed and do a relaxing activity fora few minutes. -Avoid taking medications like Tylenol PM, or Advil PM, these drugs can make memory and thinking worse. We recommend you do not drink alcohol, if you must drink, we recommend you limit alcohol to one drink per day, where a drink is defined as 12 oz of beer, 5 oz of wine, or 1.5 oz of spirits. Safety concerns: We recommend family oversee medications. Medication planners with alarms are sometimes helpful. We recommend The Medic Alert and Safe Return Program, from The Alzheimer's Association, please call [phone], or you can register online [email or web address]. Driving: You have retired from driving, and we are in agreement with this decision Level of Care Recommendation: Current level of care Legal: No legal concerns were discussed today. RESOURCES FOR ADDITIONAL INFORMATION AND SUPPORT Opportunities to participate in research can be found at: trialmatch.alz.org Access TrialMatch online. For additional assistance, email or call [phone] (press 1 for clinical trials). ClinicalTrials.gov is a resource provided by the U.S. National Library of Medicine. You can look upclinical trials (research opportunities) online At clinicaltrials.gov Alzheimer's Association [facility] Chapter: ; (toll free); http://www.alz.org, The Alzheimer's Association 23/01 Helpline provides reliable information and support to all those who need assistance. Call toll-free anytime day or night at . Caregiver Guide: tips for caregivers of people with Alzheimer's dementia, www.laura.nih.gov/Alzheimers /Publication/Hbxgok-neyzvd-sxautigrqy-disease/about-guide [facility], [address] [place]. [address], , Occupational Therapists who offers caregiver training, family support, and in home safety assessments at no cost. [facility] Agency on Aging (serving [facility]) http://[facility].[place]/government/hslaaa.html [facility] Agency on Aging serving [facility] and [facility] http://[email or web address].[email or web address] If you need to reach our office, please call our nurse at [phone], option 4, leave a message, this voicemail is checked several times per day. If you need to contact our neonatal social worker: Isreal Fan or Matteo Butcher, from the Alzheimer's Association, please call [phone] Future Appointments Date Time Provider Department Center 11/30/2023 12:30 PM [facility] CANCER CTR LAB 1 [facility] CNCR CTR [facility] Medical 11/30/2023 1:00 PM Monika Castellano PETROPHYSICIST ONC [facility] [id number] Oncology 11/30/2023 1:30 PM B [facility] INFS POD 1 B CNCR CTR [facility] Medical 12/14/2023 3:30 PM Christine Herzog MD PCP [facility] 220 PC documented in this encounter Ordered Prescriptions Prescription Sig Dispense Quantity Refills Last Filled Start Date End Date escitalopram (LEXAPRO) 10 mg tablet Take 1 tablet (10 mg total) by mouth daily 30 tablet 6 11/23/2023 01/05/2024 documented in this encounter Progress Notes * Melvi Delarosa NP - 11/23/2023 10:30 AM CDT Images from the original note were not included. [facility] VIDEO via ZOOM VISIT Melvi ARRIAGA (Nurse Practitioner) [facility] Department of Neurology Patient Name: VERNA ZUNIGA Medical Record Number (MRN): [id number] Date of (): 1945 Encounter Date: 11/23/2023 Referring MD: Dr. Christine Herzog* Primary Care Practitioner: Dr. Herzog, MD Christine CHIEF COMPLAINT Memory and thinking difficulty Collateral Source: Son Ian, serves as the collateral source/sources (CS/CS's). The CS typically sees the patient daily. HISTORY OF PRESENT ILLNESS Mr. Zuniga is a 78 y.o. gentleman who comes to the [facility] today for further evaluation of memory and thinking problems. He is in generally fair health. Dementia History: IOV with Dr. Hayes 09/19/2022 with memory and thinking difficulties starting in 2019. He had recently moved in with his son. He and his have memory loss. The first problems noted were missing bills. He typically does repeat questions or stories, may not remember a recent event, may not remember details of a recent event, or conversation, needs reminding about appointments, and needs help remembering medications. Judgement and problem solving skills are only fair. He is nolonger driving. He undoubtedly has a vascular contribution, but the course of the progressive phasehas been characteristic of Lewy body dementia with Parkinsonism and prominent fluctuations. Startedon Memantine/Namenda. Would not recommended Donepezil/Aricept due to low heart rate. Could considerrivastigmine/Exelon if cleared by cardiology. May need to consider SSRI,antipsychotic, or medroxypro gesterone for hypersexual behaviors. MMSE: 16, CDR: 1, SB: 8 TODAY'S VISIT: There have not been hospitalizations, or major medical illnesses since the last visit. Medications were reviewed, there were were no changes. Overall, the CS thinks memory and thinking problems have gotten worse, over the past 6-12 months. They have moved to [place] . He did well with the move. He could tell me his birthday. The memantine helped some but he has gotten back to his baseline. He lives with his son in the basement and then an apartment style set up. There is a stair lift to the upstairs. He uses a walker. He is very unstable. They have tried physical therapy in the past but he can be very stubborn. He is never home alone. They have a ring door cuevas in the room. So if they need anything they can push the ring door cuevas and his son can help him. He can get very agitated. Thinks that he can drive even though the keys were taken away a year ago. Judgment and problem-solving skills are fair to poor. He may only eat 2 times a day. He can become agitated because he thinks that his should be having sex with him more. He can sometimes sleep all day. He is up about every hour because he is not wearing a CPAP. He refuses to. He has not able to bathe himself alone. Ian has considered a day program but they are too expensive. The memory and thinking problems are consistent and have been slowly progressive. Caregiver State: moderate stress at this time. 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 Chronic GERD History of colon polyps TIA (transient ischemic attack) History of noncompliance with medical treatment Cerebrovascular arteriosclerosis Bilateral carotid artery disease (HCC) 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 Hypersomnia Obstructive sleep apnea Closed fracture of one rib of right side Closed fracture of one rib of right side, initial encounter Generalized weakness Elevated brain natriuretic peptide (BNP) level Dizziness Cognitive decline Bradycardia Pulmonary hypertension (HCC) Biatrial enlargement Paroxysmal atrial fibrillation (CMS/HCC) (HCC) Encounter for follow-up examination after completed treatment for conditions other than malignant neoplasm Laceration of hand, right, complicated Hematoma Current use of termination clerk anticoagulation PVC (premature ventricular contraction) Class 1 obesity with body mass index (BMI) of 30.0 to 30.9 in adult Chronic kidney disease (CKD), stage III (moderate) (HCC) PAST MEDICAL HISTORY Past Medical History: Diagnosis Date Mayo esophagus Chronic obstructive pulmonary disease (HCC) COPD Diabetes mellitus (HCC) Diabetes GERD (gastroesophageal reflux disease) Heart disease HX OTHER MEDICAL 2012 Heart stents HX OTHER MEDICAL urinary stent s placed Hyperlipidemia Hyperlipidemia Hypertension Hypertension Kidney stone Polycythemia Polycythemia Past Surgical History: Procedure Laterality Date COLONOSCOPY 2009 OTHER SURGICAL HISTORY 2002 Carpal tunnel release both OTHER SURGICAL HISTORY karen total knees OTHER SURGICAL HISTORY 2012 Heart stents: [facility] ALLERGIES Allergies Allergen Reactions Ciprofloxacin Rash Reaction: RASH, Reaction: Rash, MEDICATIONS Current Outpatient Medications: amLODIPine (NORVASC) 5 mg tablet, TAKE 1 TABLET BY MOUTH DAILY, Disp: 90 tablet, Rfl: 0 apixaban (Eliquis) 5 mg tablet, Take 1 tablet (5 mg total) by mouth 2 (two) times a day, Disp: 60 tablet, Rfl: 0 aspirin 81 mg tablet, Take one by mouth one time per day, Disp: 0, Rfl: 0 atorvastatin (LIPITOR) 40 mg tablet, TAKE 1 TABLET BY MOUTH DAILY, Disp: 90 tablet, Rfl: 1 escitalopram (LEXAPRO) 10 mg tablet, Take 1 tablet (10 mg total) by mouth daily, Disp: 30 tablet, Rfl: 6 finasteride (PROSCAR) 5 mg tablet, TAKE 1 TABLET BY MOUTH DAILY, Disp: 90 tablet, Rfl: 3 lisinopriL (PRINIVIL,ZESTRIL) 20 mg tablet, TAKE 1 TABLET BY MOUTH DAILY, Disp: 90 tablet, Rfl: 3 magnesium oxide (MAG-OX) 400 mg (241.3 mg elemental magnesium) tablet, TAKE 1 TABLET(400 MG) BY MOUTH TWICE DAILY, Disp: 180 tablet, Rfl: 1 memantine (NAMENDA) 5 mg tablet, Take 1 tablet (5 mg total) by mouth 2 (two) times a day, Disp: 60 tablet, Rfl: 5 FAMILY & SOCIAL HISTORY Family History Problem Relation Age of Onset Hypertension Mother Hypertension; Heart disease Mother Heart disease; Diabetes Mother Diabetes mellitus; Stroke Mother 66 Stroke; Cancer Mother Cancer; Heart attack Mother Alzheimer's disease Father Alzheimer's Disease; Memory loss Father Cancer Brother Social History Tobacco Use Smoking status: Former Current packs/day: 0.00 Average packs/day: 1 pack/day for 40.0 years (40.0 ttl pk-yrs) Types: Cigarettes Start date: 1968 Quit date: 2008 Years since quittin.4 Smokeless tobacco: Never Tobacco comments: Quit in 2009 Substance and Sexual Activity Drug use: No Sexual activity: Not Currently Partners: Female control/protection: None Alcohol Use: Not At Risk (08/06/2022) AUDIT-C Frequency of Alcohol Consumption: Never Average Number of Drinks: Patient does not drink Frequency of Binge Drinking: Never Review of Systems Constitutional: Negative. HENT: Negative. Eyes: Negative. Respiratory: Negative. Cardiovascular: Negative. Gastrointestinal: Negative. Genitourinary: Negative. Musculoskeletal: Negative. Skin: Negative. Neurological: Negative. Endo/Heme/Allergies: Negative. Psychiatric/Behavioral: Positive for memory loss. Medical Records Review: I reviewed [facility] [place] and prior Neuropsychometric testing scores. 09/19/2022 7:00 AM [facility] Neurobehavioral Status Exam Results Repository ICF signed? No Verbal Fluency Total Score 8 [place] Naming (15 item) Total Score 13 MMSE Score 16 Word List Memory Task 6 Word List Recall 1 Short Blessed Total Score 18 Logical Memory Total Score 4 Total Score (out of 90) 15 Digit Symbol Errors 1 Lab Results Component Value Date TSH 1.68 08/06/2022 Lab Results Component Value Date WBC 7.9 11/04/2023 HGB 12.9 (L) 11/04/2023 HCT 43.3 11/04/2023 MCV 76.9 (L) 11/04/2023 LABPLAT 228 11/04/2023 Lab Results Component Value Date GLUCOSE 117 11/04/2023 CALCIUM 9.1 11/04/2023 SODIUM 141 11/04/2023 POTASSIUM 4.6 11/04/2023 CO2 26 11/04/2023 CHLORIDE 105 11/04/2023 BUNSER 25 11/04/2023 CREATININE 1.43 (H) 11/04/2023 Lab Results Component Value Date ALT 13 11/04/2023 AST 14 11/04/2023 ALKPHOS 86 11/04/2023 BILITOT 0.5 11/04/2023 Lab Results Component Value Date VITB12 752 11/03/2022 Neurologic Exam via video Mental status: (observational): Awake and attentive. Speech: word finding difficulty Clinical Dementia [place]09/19/2022 7:00 AM 11/23/2023 7:00 AM [facility] CDR/DIAGNOSIS NEW Repository ICF signed? No Memory 1 2 Orientation 2 2 Judgement & Problem Solving 1 2 Community Affairs 1 2 Home & Hobbies 1 2 Personal Care 2 2 Global Score 1 2 Sum of Boxes 8 12 ASSESSMENT Mr. Zuniga is a 78 y.o. gentleman with a history of slowly progressive cognitive changes, consistent with a clinical diagnosis of Lewy Body dementia vs Alzheimer Disease. His memory and thinking difficulties have progressively declined. He is tolerating memantine 5 mg twice a day. We will continuethis dose as he has had increased kidney numbers recently. We can consider adding rivastigmine as long as it is cleared by Cardiology. I can send the recommendation to Dr. Galindo his commercial escrow assistant. He is having increased sexual behaviors towards his . At this time I think that we should consider treatment of this. We will add escitalopram 5 mg daily for 2 weeks then increase to 10 mg daily. If needed we may need to consider adding quetiapine and or medroxyprogesterone. I would like social work to speak with his son about future resources and support. I think that getting more help at homecould be beneficial. A day program could also be beneficial but it is very costly. His son would benefit from a referral to [facility]. PLAN OF CARE: (Shared with CS, CS's) Referral made to community resources (referral to PAYROLL ACCOUNTANT) 1. Lewy body dementia, unspecified dementia severity, unspecified whether behavioral, psychotic, ormood disturbance or anxiety (HCC) 2. Personal care impairment 3. Requires daily assistance for activities of daily living (ADL) and comfort needs 4. Caregiver stress 5. Hypersexuality Orders Placed This Encounter Ambulatory referral order to Occupational Therapy - Please contact their son Ian at [phone] Referral Priority: Routine Referral Type: Consultation Referral Reason: Specialty Services Required Referral Location: [facility] Requested Specialty: Occupational Therapy Number of Visits Requested: 12 escitalopram (LEXAPRO) 10 mg tablet Sig: Take 1 tablet (10 mg total) by mouth daily Dispense: 30 tablet Refill: 6 Start with 5 mg daily for two weeks Patient Instructions [facility] TODAY'S VISIT Provider: BART Oden (Nurse Practitioner) Thank you for coming to the [facility] today. We appreciate this opportunity to participate in your care. We have reviewed the concerns about your memory and thinking. Memory and thinking test scores today: MMSE (Mini Mental Status Exam): A perfect score on this test is 30. A score of of between 27-30 is considered normal. A score of 24-26 is considered mildly impaired. A score of 20-23 is impaired. Scores below 20 show moderate impairment and 10 or below shows severe impairment. Diagnosis We think that the changes you and your family have observed in your memory and thinking are most likely caused by: Alzheimer's dementia It will be important to re-assess your memory in the future. We can compare your test results in the future to the test results from today so we can get a more accurate picture of how your memory haschanged. Medications: We recommend you take escitalopram/Lexapro for mood, common side effects are nausea, headache, diarrhea, decreased libido, fatigue. This medication takes about a month to see improvement. You should take this medication every day. Additional Recommendations: Nutrition: We recommend that you eat a balanced diet, including fruits and vegetables daily and regular servings of fish. We recommend a heart healthy diet. Activity: We recommend that you engage in daily physical activity such as walking or stretching. Werecommend you do things that stimulate your mind, such as puzzles, books, working on hobbies, visiting with friends and relatives or engaging in other social and community activities. Sleep: Sleep can have a big effect on your memory and thinking. Make sure you get a good night's sleep every night. If you have trouble sleeping, make sure you follow these rules for basic sleep hygiene: -Get up at the same time every morning, regardless of how little or how poorly you sleep. -No napping during the day time. If naps are really necessary, nap for less than an hour and only nap before 3 PM. -Have a regular calm down time before going to bed. Do not work right up until bedtime. -Have a regular exercise schedule, as exercise helps consolidate sleep. -No caffeine for 6 hours before bedtime. -No watching T.V. or using the computer in your bedroom or at bedtime. -If you are not able to fall asleep after 20 minutes, get out of bed and do a relaxing activity fora few minutes. -Avoid taking medications like Tylenol PM, or Advil PM, these drugs can make memory and thinking worse. We recommend you do not drink alcohol, if you must drink, we recommend you limit alcohol to one drink per day, where a drink is defined as 12 oz of beer, 5 oz of wine, or 1.5 oz of spirits. Safety concerns: We recommend family oversee medications. Medication planners with alarms are sometimes helpful. We recommend The Medic Alert and Safe Return Program, from The Alzheimer's Association, please call [phone], or you can register online [email or web address]. Driving: You have retired from driving, and we are in agreement with this decision Level of Care Recommendation: Current level of care Legal: No legal concerns were discussed today. RESOURCES FOR ADDITIONAL INFORMATION AND SUPPORT Opportunities to participate in research can be found at: trialmatch.alz.org Access TrialMatch online. For additional assistance, email or call [phone] (press 1 for clinical trials). ClinicalTrials.gov is a resource provided by the U.S. National Library of Medicine. You can look upclinical trials (research opportunities) online At clinicaltrials.gov Alzheimer's Association [facility] Chapter: ; (toll free); http://www.alz.org, The Alzheimer's Association 23/01 Helpline provides reliable information and support to all those who need assistance. Call toll-free anytime day or night at . Caregiver Guide: tips for caregivers of people with Alzheimer's dementia, www.laura.nih.gov/Alzheimers /Publication/Yazzci-yelnzj-dfmrwkfwly-disease/about-guide [facility], [address] [place]. [address], , Occupational Therapists who offers caregiver training, family support, and in home safety assessments at no cost. [email or web address] on Aging (serving [facility]) [email or web address] [facility] Agency on Aging (serving [facility] [email or web address] If you need to reach our office, please call our nurse at [phone], option 4, leave a message, this voicemail is checked several times per day. If you need to contact our neonatal social worker: Isreal Fan or Matteo Butcher, from the [employer], please call [phone] Future Appointments Date Time Provider Department Center 11/30/2023 12:30 PM B [facility] CANCER CTR LAB 1 B CNCR CTR [facility] Medical 11/30/2023 1:00 PM Monika Castellano NP ONC [facility] B134 [facility] Oncology 11/30/2023 1:30 PM [facility] INFS POD 1 [facility] CNCR [facility] Medical 12/14/2023 3:30 PM Christine Herzog MD PCP FM 220 PC This was a telemedicine visit with Verna Zuniga and son which took place via Real-time video connection (InTouch, Zoom or similar). During the visit, I was located in the office and the patient was located at home in the state of [place]. The patient visit started at 1030 and ended at 1100. My totalencounter time on 11/23/2023 was 40 minutes which was spent in the activities documented in the note. This includes time spent prior to the visit and after the visit in direct care of the patient. This time does not include time spent in any separately reportable services.. The patient: has been informed that the visit may not be secure and acknowledged the information. The option of participating in a telephone or video visit during the COVID-19 public [facility] emergencywas explained to them. After being given an opportunity to ask questions about and discuss this type of visit, they verbally consented to proceeding with the telephone/video visit and understand thatthis service replaces an office visit. Melvi Delarosa NP documented in this encounter Plan of Treatment Scheduled Referrals Name Type Priority Associated Diagnoses Orde r Schedule Ambulatory referral order to Occupational Therapy - Outpatient Referral Routine Lewy body dementia, unspecified dementia severity, unspecified whether behavioral, psychotic, or mood disturbance or anxiety (HCC) Personal care impairment Requires daily assistance for activities of daily living (ADL) and comfort needs Caregiver stress Hypersexuality Ordered: 11/23/2023 documented as of this encounter Goals Goal Patient Goal Type Associated Problems Recent Progress Patient-Stated? Author GULSHAN General Goal - Patient schedules and keeps appointments with all recommended providers ACO Care Management On track(2022 11:14 AM VENEER DRIER) Sepideh Guo, SUE Note: Problem: Potential for medical complications and [...] as of this encounter Visit Diagnoses Diagnosis Lewy body dementia, unspecified dementia severity, unspecified whether behavioral, psychotic, or mood disturbance or anxiety (HCC)- Primary Personal care impairment Requires daily assistance for activities of daily living (ADL) and comfort needs Caregiver stress Hypersexuality Other specified psychosexual disorder documented in this encounter Care Teams Supervisor Sawing And Assembly Relationship Specialty Start Date End Date Christine Herzog MD 2 [facility] [address] [place] [address] PCP - General Internal Medicine 12/02/21 Trey Pinedo MD [address] [place] [address] [address] [place] [address] Consulting Physician Neurology 05/09/19 Albert Craft MD [address] [place] [address] [address] [place] [address] Consulting Physician Gastroenterology 03/11/22 Chintan Figueroa MD [address] [place] [address] [address] [place] [address] Consulting Physician Hematology and Oncology 03/11/22 Jameel Bloom DPM [address] [place] [address] Consulting Physician Orthotics 03/11/22 Gadiel Genao MD [address] [place] [address] Surgeon Vascular Surgery 03/11/22 documented as of this encounter
--- OUTSIDE RECORDS SUMMARY | 2024-06-18 18:03 | XMS_ITS | Encounter Summary ---
Author Organization [facility] Healthcare Address [address] [place] [address] Care Team Providers Care Program Writer Name Role Phone Trey Pinedo MD Unavailable [phone] Christine Herzog MD Primary Care Provide r Albert Craft MD Unavailable [phone] Chintan Figueroa MD Unavailable [phone] Jameel Bloom DPM Unavailable [phone] Gadiel Genao MD Unavailable [phone] Encounter Details Date Type Department Care Team (Late st Contact Info) Description 12/14/2023 9:30 AM CDT [address] [id number] Type 2 diabetes mellitus with hyperlipidemia (HCC) Social History Tobacco Use Types Packs/Day [...] often do you attend chur ch or lutheran services? Patient declined 09/28/2022 Do you belong to any clubs o r organizations such as jehovah's witness groups, unions, fraternal or athletic groups, or [...] place to sleep or slept in a assisted (including now)? No 09/28/2022 Personal Safety Answer Date Recorded Have you ever been in or are you currently in a harmful physical or emotional relationship or is someone making you feel afraid or unsafe? Denies 09/25/2022 Sex and Gender Information Value Date Recorded Sex Assigned at Not on file 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 VOICE NETWORK ENGINEER Gender Identity Not on file Sexual Orientation Straight 01/23/2021 10 :16 PM CDT documented as of this encounter Plan of Treatment Not on file documented as of this encounter Goals Goal Patient Goal Type Associated Problems Recent Progress Patient-Stated? Author GULSHAN General Goal - Patient schedules and keeps appointments with all recommended providers ACO Care Management On track(2022 11:14 AM VOICE NETWORK ENGINEER) No Sepideh Hi RN Note: Problem: Potential [...] Priority Date/Time Associated Diagnosis Comments EGFR Routine 12/14/2023 9:36 AM CDT Type 2 diabetes mellitus with hyperlipidemia (HCC) ALBUMIN CREATININE RATIO, URINE Routine 12/14/2023 9:36 AM CDT Type 2 diabetes mellitus with hyperlipidemia (HCC) HEMOGLOBIN A1C Routine 12/14/2023 9:36 AM CDT Type 2 diabetes mellitus with hyperlipidemia (HCC) COMPREHENSIVE METABOLIC PANEL Routine 12/14/2023 9:36 AM CDT Type 2 diabetes mellitus with hyperlipidemia (HCC) documented in this encounter Results * (ABNORMAL) eGFR (12/14/2023 9:36 AM CDT) eGFR 50(L) >=60 mL/min/1. 73 m2 Comment: Interpretive Data [...] Inclusion of Race in Diagnosing Kidney Disease, ALESSANDROSN 2020). The CKD-EPI equation should not be used for patients with unstable renal function and has not been validated in children and those over 70. Current interpretive data was last reviewed 2021. Blood 12/14/2023 9:36 AM CDT 12/14/2023 10:33 AM CDT us Christine Herzog MD LAB BLOOD ORDERABLES Final Result [facility] ([place]) 1 [facility] Department [place] [address] * (ABNORMAL) Hemoglobin A1c (12/14/2023 9:36 AM CDT) Hgb A1C 6.7(H) 4.0 - 5.6 % Estimated Average Glucose 146 mg/dL [facility] ([place]) Comment: The ADA recommends reporting an estimated Average Glucose (eAG) with all Hemoglobin A1c results using the equation derived from a study of 507 normal and diabetic adults. ??Minority populations were underrepresented and children were not included. ?? (Diabetes Care 31:5662-3064, 2008). ??The eAG is not equivalent to a fasting glucose. Blood 12/14/2023 9:36 AM CDT 12/14/2023 10:33 AM CDT Narrative [facility] - 12/14/2023 11:02 AM CDT fasting us Christine Herzog MD LAB BLOOD ORDERABLES Final Result [facility] ([place]) 1 [facility] Department [place] [address] * (ABNORMAL) Comprehensive metabolic panel (12/14/2023 9:36 AM CDT) Sodium 143 135 - 145 mmol/L Potassium, pl 4.5 3.3 - 4.9 mmol/L [facility] ([place]) Chloride 107 97 - 110 mmol/L [facility] ([place]) CO2 24 22 - 32 mmol/L [facility]) Anion gap 12 2 - 15 mmol/L [facility] ([place]) BUN 25 6 - 25 mg/dL [facility] Creatinine 1.44(H) 0.80 - 1.30 mg/dL [facility] ([place]) Glucose 106 70 - 199 mg/dL [facility] Comment: Interpretive Data Fasting glucose [...] interpretive data was last revised 2022. Calcium 9.0 8.5 - 10.3 mg/dL [facility] ([place]) Bilirubin, total 0.6 0.1 - 1.2 mg/dL [facility] ([place]) Protein, pl 7.2 6.5 - 8.5 g/dL [facility] ([place]) Albumin 4.3 3.5 - 5.0 g/dL [facility] ([place]) Alk phos 108 40 - 130 Units/L [facility] ([place]) ALT 15 7 - 55 Units/L [facility]) AST 15 10 - 50 Units/L [facility] ([place]) Blood 12/14/2023 9:36 AM CDT 12/14/2023 10:33 AM CDT Narrative [facility] ([place]) - 12/14/2023 11:45 AM CDT Non fasting us Christine Herzog MD LAB BLOOD ORDERABLES Final Result [facility] ([place]) 1 [facility] Department [place] [address] * (ABNORMAL) Albumin Creatinine Ratio, Urine (12/14/2023 9:36 AM CDT) Albumin Ur 135.9 mg/L Comment: Interpretive Data No reference range established. Current interpretive data was last revised 2018. Testing performed by: [facility], [address] [place] [address]., [address] Creatinine Ur 247.3 mg/dL [facility] ([place]) Comment: Interpretive Data No reference range established. Current interpretive data was last revised 2018. Testing performed by: [facility], [address] [place] [address]., [address] Albumin Creatinine Ratio, Ur 55(H) 1 - 29 mg/g [facility] ([place]) Comment:Testing performed by : [address] [address] Urine 12/14/2023 9:36 AM CDT 12/14/2023 1:31 PM CDT Narrative [facility] ([place]) - 12/14/2023 2:34 PM CDT Non fasting Christine Herzog MD LAB URINE ORDERABLES Final Result [facility] ([place]) 1 [facility] Department [place] [address] documented in this encounter Visit Diagnoses Diagnosis Type 2 diabetes mellitus with hyperlipidemia (HCC) documented in this encounter Care Teams Program Writer Relationship Specialty Start Date End Date Christine Herzog MD 2 [facility] [address] [place] [address] PCP - General Internal Medicine 12/02/21 Trey Pinedo MD [address] [place] [address] [address] [place] [address] Consulting Physician Neurology 05/09/19 Albert Craft MD 2 [facility] [address] [place] [address] Consulting Physician Gastroenterology 03/11/22 Chintan Figueroa MD [address] [place] [address] [address] [place] [address] Consulting Physician Hematology and Oncology 03/11/22 Jameel Bloom DPM [address] [place] [address] Consulting Physician Orthotics 03/11/22 Gadiel Genao MD [address] [place] [address] Surgeon Vascular Surgery 03/11/22 documented as of this encounter
--- OUTSIDE RECORDS SUMMARY | 2024-06-18 18:03 | XMS_ITS | Encounter Summary ---
Author Organization [facility] Address [address] [place] [address] Phone Care Team Providers Care Laser Set Up Operator Name Role Phone Trey Pinedo MD Unavailable [phone] Christine Herzog MD Primary Care Provide r Albert Craft MD Unavailable [phone] Chintan Figueroa MD Unavailable [phone] Jameel Bloom DPM Unavailable [phone] Gadiel Genao MD Unavailable Encounter Details Date Type Department Care Team (Late st Contact Info) Description 01/05/2024 10:00 AM CDT Office Visit [facility] Physicians [facility] Oncology [address] [place] [address] Medical Office Bl [address] [phone] Chintan Figueroa MD [address] [place] [address] [address] [place] [address] Polycythemia (Primary Dx) Social History Tobacco Use Types [...] often do you attend chur ch or zoroastrianism services? Patient declined 09/28/2022 Do you belong to any clubs o r organizations such as quaker groups, unions, fraternal or athletic groups, or [...] place to sleep or slept in a skilled nursing (including now)? No 09/28/2022 Personal Safety Answer Date Recorded Have you ever been in or are you currently in a harmful physical or emotional relationship or is someone making you feel afraid or unsafe? Denies 09/25/2022 Sex and Gender Information Value Date Recorded Sex Assigned at Not on file 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 COMMISSIONS ANALYST Gender Identity Not on file Sexual Orientation Straight 01/23/2021 10 :16 PM CDT documented as of this encounter Last Filed Vital Signs Vital Sign Reading Time Taken Comments Blood Pressure 131/64 01/05/2024 10:42 AM CDT Pulse 52 01/05/2024 10:42 AM CDT Temperature 36 ??C (96.8 ??F) 01/05/2024 10:42 AM CDT Respiratory Rate 20 01/05/2024 10:42 AM CDT Oxygen Saturation 98% 01/05/2024 10:42 AM CDT Inhaled Oxygen Concentration - - Weight 84.1 kg (185 lb 6.4 oz) 01/05/2024 10:42 AM CDT Height - - Body Mass Index 29.1 12/14/2023 2:27 PM CDT documented in this encounter Progress Notes * Bronwyn Nava NP - 01/05/2024 10:00 AM CDT Images from the original note were not included. Patient Identifying Data: Villa Zuniga is a 78 y.o. male seen in followup today DIAGNOSIS: Secondary Erythrocytosis HEMATOLOGY/ONCOLOGY TREATMENT HISTORY: Patient is an elderly male with PMHx of HTN, GERD, TIA, DMII, and CAD who was referred by his PCP for elevated hemoglobin and hematocrit in December 2020. 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 CBC's reviewed and reveals: 10/06/2017 (and preceding years back to 09/05/2016)--hemoglobin 13.4-16.2 grams/deciliter. 10/16/2018--for significantly elevated hemoglobin of 19.3 grams/deciliter; since that time his hemoglobin has ranged between 18.2 grams/deciliter and 19.8 grams/deciliter. Patient reported he established care with signaling project engineer, Dr. Hoskins who recommended regular phlebotomy to bring his hemoglobin down to a more normal level. Dr. Hoskins and the patient stop getting phlebotomies. 10/13/[address] Pierre, patient had genetic testing for JAK2 and Exon 12 mutation both of which were negative. 12/28/2020 CT of abd/pelvis showed 4.4 cm benign simple cyst extending off the inferior left kidney. X-ray reports from April 2007 also revealed this kidney cyst. 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 Interval History: The patient returns today for reassessment of his erythrocytosis. He states that he is feeling well and denies any concerns. Son is present during visit today. Review of Systems Review of systems positive for symptoms as per interval history. All other review of systems negative. Objective Vitals: Vitals: 01/05/24 1042 BP: 131/64 BP Location: Right arm Pulse: 52 Resp: 20 Temp: 36 ??C (96.8 ??F) TempSrc: Skin SpO2: 98% Weight: 84.1 kg (185 lb 6.4 oz) PHYSICAL EXAM: Physical Exam -Using walker, examined in chair -GENERAL: calm -EYES: Extraocular movements intact -ENT: Neck supple, Septum is midline. -LUNG: Clear to auscultation bilaterally, No wheezes, No crackles -CVS: Regular rate rhythm, S1 and S2 normal, No murmurs, -ABDOMEN: Soft, nondistended, Nontender, Bowel sounds observed -EXT: no lower Ext edema. -NEURO: no deficit -SKIN: Skin color, texture, turgor normal. No rashes or lesions Lab/Radiology/Diagnostic Review: Hematology Lab History Latest Ref Rng & Units 07/27/2023 14:00 09/21/2023 15:05 11/04/2023 11:12 01/05/2024 09:50 Labs - Hematology WBC 3.8 - 9.9 K/cumm 6.8 7.1 7.9 7.4 Total Hb, POC 13.0 - 17.5 g/dL 14.4 14.1 12.9 15.3 Hct 38.9 - 50.3 % 47.0 46.8 43.3 49.9 Plt 150 - 400 K/cumm 205 211 228 202 Neutrophil abs 1.5 - 6.5 K/cumm 4.5 4.6 5.1 5.1 Lymphocytes, abs 0.8 - 3.3 K/cumm 1.4 1.5 1.5 1.3 Chemistry Component Value Date/Time SODIUM 143 12/14/2023 0936 POTASSIUM 4.5 12/14/2023 0936 POTASSIUM 3.8 03/22/2017 0925 CHLORIDE 107 12/14/2023 0936 CO2 24 12/14/2023 0936 BUNSER 25 12/14/2023 0936 CREATININE 1.44 (H) 12/14/2023 0936 GLUCOSE 106 12/14/2023 0936 Component Value Date/Time CALCIUM 9.0 12/14/2023 0936 ALKPHOS 108 12/14/2023 0936 AST 15 12/14/2023 0936 ALT 15 12/14/2023 0936 BILITOT 0.6 12/14/2023 0936 Tumor Marker History Latest Ref Rng & Units 01/26/2023 12:39 Tumor Markers PSA <=6.20 ng/mL 2.31 No results found. 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 Hematocrit is 49.9 PLAN: Receive phlebotomy today. Continue phlebotomies q 2 months. Hold for HCT < 45%. Goal is to keep HCT down to approximately 45-50%. He will return in 6 months for office visit. He knows to call the office with any questions or concerns NIURKA Dasilva APRN- Nurse Practitioner Division of Oncology [address] [place] [address], [address] [place] [address] , ext, 1, ext [phone] documented in this encounter Miscellaneous Notes * Addendum Note - Alla Huerta CLT - 01/05/2024 10:00 AM CDTAddended by: ALLA HUERTA on: 03/21/2024 02:28 PM Modules accepted: Orders documented in this encounter Plan of Treatment Scheduled Orders Name Type Priority Associated Diagnoses Orde r Schedule Comprehensive metabolic panel Lab Routine Polycythemia Expected: 07/12/2024, Expires: 12/26/2024 CBC with auto differential Lab Routine Polycythemia EVERY 2 MONTHS for 3 Occurrences starting 03/21/2024 until 12/26/2024, 2 completed documented as of this encounter Goals Goal Patient Goal Type Associated Problems Recent Progress Patient-Stated? Author GULSHAN General Goal - Patient schedules and keeps appointments with all recommended providers ACO Care Management On track(2022 11:14 AM COMMISSIONS ANALYST) Sepideh Guo, SUE Note: Problem: Potential for [...] medication regimen. documented as of this encounter Results * (ABNORMAL) CBC with auto differential (05/16/2024 2:45 PM COMMISSIONS ANALYST) [facility] Signature WBC 6.6 3.8 - 9.9 K/cumm Comment:Testing performed by : [place], [address] Hgb 14.3 13.0 - 17.5 g/dL [facility] ([place]) Comment:Testing performed by : [place], [address] Hct 48.5 38.9 - 50.3 % [facility] ([place]) Comment:Testing performed by : [facility], [place], [place], Plt 197 150 - 400 K/cumm [facility] ([place]) Comment:Testing performed by : [place], [place], MPV 11.1 9.1 - 12.3 fL [facility] ([place]) Comment:Testing performed by : [place], [place], RBC 6.22(H) 4.30 - 5.80 M/cumm [facility] ([place]) Comment:Testing performed by : [place], MCV 78.0(L) 81.3 - 96.4 fL [facility] ([place]) Comment:Testing performed by : [place], [place], MCH 23.0(L) 27.1 - 33.3 pg [facility] ([place]) Comment:Testing performed by : [place], MCHC 29.5(L) 32.3 - 35.7 g/dL [facility] ([place]) Comment:Testing performed by : [place], [place], RDW CV 18.8(H) 11.1 - 14.9 % [facility] ([place]) Comment:Testing performed by : [place], RDW SD 50.4(H) 35.7 - 48.1 fL [facility] ([place]) Comment:Testing performed by : [facility], [place], [place], NRBC abs Not Measured 0.00 - 0.01 K/cumm [facility] ([place]) Comment:Testing performed by : [place], [address] Blood 05/16/2024 2:45 PM COMMISSIONS ANALYST 05/16/2024 2:49 PM COMMISSIONS ANALYST Bronwyn Nava E COMMERCE RETAILER LAB BLOOD ORDERABLES Final Result [facility] ([place]) [address] [facility] [place] [address] * (ABNORMAL) CBC with auto differential (03/21/2024 2:35 PM CDT) WBC 6.5 3.8 - 9.9 K/cumm Comment:Testing performed by : [facility] [address], Medical Office [address], [place] [address] Hgb 12.9(L) 13.0 - 17.5 g/dL [facility] ([place]) Comment:Testing performed by : [facility] [address], Medical Office [facility] [address], [place] [address] Hct 43.2 38.9 - 50.3 % [facility] ([place]) Comment:Testing performed by : [facility] [address], Medical Office [facility] [address], [place] [address] Plt 222 150 - 400 K/cumm [facility] ([place]) Comment:Testing performed by : [facility] [address], Medical Office [facility] [address], [place] [address] MPV 9.6 9.1 - 12.3 fL [facility] ([place]) Comment:Testing performed by : [facility] [address], Medical Office [facility] [address], [place] [address] RBC 5.64 4.30 - 5.80 M/cumm [facility] ([place]) Comment:Testing performed by : [facility] [address], Medical Office [facility] [address], [place] [address] MCV 76.6(L) 81.3 - 96.4 fL [facility] ([place]) Comment:Testing performed by : [facility] [address], Medical Office [address], [place] [address] MCH 22.9(L) 27.1 - 33.3 pg [facility] ([place]) Comment:Testing performed by : [facility] [address], Medical Office [address], [place] [address] MCHC 29.9(L) 32.3 - 35.7 g/dL [facility] ([place]) Comment:Testing performed by : [facility] [address], Medical Office [address], [place] [address] RDW CV 17.1(H) 11.1 - 14.9 % [facility] ([place]) Comment:Testing performed by : [facility] [address], Medical Office [facility] [address], [place] [address] RDW SD 46.5 35.7 - 48.1 fL [facility] ([place]) Comment:Testing performed by : [facility] [address], Medical Office [facility] [address], [place] [address] NRBC abs Not Measured 0.00 - 0.01 K/cumm [facility] ([place]) Comment:Testing performed by : [facility] [address], Medical Office [facility] [address], [place] [address] Blood 03/21/2024 2:35 PM CDT 03/21/2024 2:36 PM CDT Bronwyn Nava E COMMERCE RETAILER LAB BLOOD ORDERABLES Final Result [facility] ([place]) [address] [facility] Department [place] [address] documented in this encounter Visit Diagnoses Diagnosis Polycythemia- Primary Polycythemia, secondary documented in this encounter Orders Appointment Requests Count Last Ordered Date Fi rst Ordered Date ONCBCN CLINIC APPOINTMENT REQUEST 1 024 documented in this encounter Care Teams Laser Set Up Operator Relationship Specialty Start Date End Date Christine Herzog MD [address] [facility] [address] [place] [address] PCP - General Internal Medicine 12/02/21 Trey Pinedo MD [address] [facility] [address] [place] [address] Consulting Physician Neurology 05/09/19 Albert Craft MD [address] [place] [address] [address] [place] [address] Consulting Physician Gastroenterology 03/11/22 Chintan Figueroa MD [address] [place] [address] [address] [place] [address] Consulting Physician Hematology and Oncology 03/11/22 Jameel Bloom DPM [address] [place] [address] Consulting Physician Orthotics 03/11/22 Gadiel Genao MD [address] [place] [address] Surgeon Vascular Surgery 03/11/22 documented as of this encounter
--- OUTSIDE RECORDS SUMMARY | 2024-06-18 18:03 | XMS_ITS | Encounter Summary ---
Author Organization [facility] Healthcare Address [address] [place] [address] Care Team Providers Care Project Control Manager Name Role Phone Trey Pinedo MD Unavailable [phone] Christine Herzog MD Primary Care Provide r Albert Craft MD Unavailable [phone] Chintan Figueroa MD Unavailable [phone] Jameel Bloom DPM Unavailable [phone] Gadiel Genao MD Unavailable [phone] Reason for Visit * Reason Comments Urinary Symptom Increased confusion, increased urinary incontinence that has been on going for about a week, nothing otc. Encounter Details Date Type Department Care Team (Late st Contact Info) Description 01/18/2024 5:30 PM CDT Office Visit [facility] [place] [address] [place] [id number] Loida Sánchez NP [address] [place] [address] Urinary incontinence, unspecified type (Primary Dx); Confusion Social History Tobacco Use Types Packs/Day Years [...] often do you attend chur ch or buddhist services? Patient declined 09/28/2022 Do you belong to any clubs o r organizations such as jewish groups, unions, fraternal or athletic groups, or [...] place to sleep or slept in a senior care (including now)? No 09/28/2022 Personal Safety Answer Date Recorded Have you ever been in or are you currently in a harmful physical or emotional relationship or is someone making you feel afraid or unsafe? Denies 09/25/2022 Sex and Gender Information Value Date Recorded Sex Assigned at Not on file 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 [facility] Gender Identity Not on file Sexual Orientation Straight 01/23/2021 10 :16 PM CDT documented as of this encounter Last Filed Vital Signs Vital Sign Reading Time Taken Comments Blood Pressure 122/58 01/18/2024 5:39 PM CDT Pulse 70 01/18/2024 5:39 PM CDT Temperature 36.4 ??C (97.6 ??F) 01/18/2024 5:39 PM CD T Respiratory Rate 16 01/18/2024 5:39 PM CDT Oxygen Saturation 95% 01/18/2024 5:39 PM CDT Inhaled Oxygen Concentration - - Weight 83.9 kg (185 lb) 01/18/2024 5:39 PM CDT Height 170.2 cm (5' 7 ) 01/18/2024 5:39 PM CDT Body Mass Index 28.98 01/18/2024 5:39 PM CDT documented in this encounter Patient Instructions * Patient Instructions* Loida Sánchez NP - 01/18/2024 5:30 PM CDT Follow up with neurologist documented in this encounter Progress Notes * Loida Sánchez NP - 01/18/2024 5:30 PM CDT Images from the original note were not included. Subjective/Objective Patient ID: Villa Zuniga is a 78 y.o. male. Chief Complaint Urinary Symptom (Increased confusion, increased urinary incontinence that has been on going for about a week, nothing otc. ) Patient presents to convenient care with son or increased confusion and urinary incontinence x1 week. Patient does have history of dementia and follows with Neurology. He lives with his son who is his addressing machine operator. His son is providing the history today. His son states that his father has been forgetting to finish meals and easily becomes confused and side tracked. He also has experienced episodes of urinary incontinence over the past week. No history of UTIs. Patient's son states that he contacted his father's neurologist and it was advised for him to be checked for a UTI. Review of Systems All systems reviewed and are negative or non contributory for this patient's presentation today other than as stated in the HPI. Physical Exam Vitals reviewed. Constitutional: Appearance: Normal appearance. He is not ill-appearing. HENT: Head: Normocephalic. Cardiovascular: Rate and Rhythm: Normal rate and regular rhythm. Pulmonary: Effort: Pulmonary effort is normal. Breath sounds: Normal breath sounds. Skin: General: Skin is warm and dry. Neurological: Mental Status: He is alert. Mental status is at baseline. Psychiatric: Attention and Perception: Attention normal. Mood and Affect: Mood normal. Behavior: Behavior normal. Thought Content: Thought content normal. Judgment: Judgment normal. Comments: A&O x3 Vitals: 01/18/24 1739 BP: 122/58 Pulse: 70 Resp: 16 Temp: 36.4 ??C (97.6 ??F) TempSrc: Temporal SpO2: 95% Weight: 83.9 kg (185 lb) Height: 170.2 cm (5' 7 ) Assessment/Plan Diagnoses and all orders for this visit: Urinary incontinence, unspecified type (Primary) - POCT urinalysis dipstick - Urine culture Urine, clean voided; Future --Patient A&O x3 --UA dark yellow and 30 protein. Negative leukocytes and nitrites. Based on results, UTI unlikely. Will send urine culture --advise patient's son to contact father's neurologist or PCP for further evaluation --discussed red flags that would warrant immediate evaluation in the ER Recent Results (from the past 4 hour(s)) POCT urinalysis dipstick Collection Time: 01/18/24 5:54 PM Result Value Ref Range Color, Urine, POC Dark Yellow Clarity, ur, POC Clear Clear Glucose, ur, POC Negative Negative MG/DL Bilirubin, ur, POC Small Negative, Small, Moderate, Large Ketones, ur, POC Negative Negative Specific [place], POC 1.030 1.003 - 1.030 Blood, ur, POC Negative Negative pH, ur, POC 6.0 5.0 - 8.0 Protein, ur, POC 30. (A) Negative Urobilinogen, urine, POC 0.2 0.2 - 1.0 mg/dL Nitrite, ur, POC Negative Negative Leukocytes, ur, POC Negative Negative Lot Number [id number] Patient Education: Disposition Treatment plan including expectations, follow up, and return precautions discussed with patient/parent, verbalizes understanding. Medication dosage, use, and potential adverse reactions discussed with patient/parent. Advised to follow up with PCP if symptoms do not resolve as expected or sooner if condition worsens. Signs/symptoms warranting ER evaluation reviewed. Patient and/or guardian was given an opportunity to ask questions, questions answered. Loida Sánchez NP documented in this encounter Plan of Treatment Not on file documented as of this encounter Goals Goal Patient Goal Type Associated Problems Recent Progress Patient-Stated? Author GULSHAN General Goal - Patient schedules and keeps appointments with all recommended providers [facility] Care Management On track(2022 11:14 AM FA[facility] DOCTOR) Sepideh Guo RN Note: Problem: Potential for medical complications [...] Procedure Name Priority Date/Time Associated Diagnosis Comments POCT URINALYSIS DIPSTICK Routine 01/18/2024 5:54 PM CDT Urinary incontinence, unspecified type documented in this encounter Results * (ABNORMAL) POCT urinalysis dipstick (01/18/2024 5:54 PM CDT) Color, Urine, POC Dark Yellow Clarity, ur, POC Clear Clear Glucose, ur, POC Negative Negative MG/DL Bilirubin, ur, POC Small Negative, Small, Moderate, Large Ketones, ur, POC Negative Negative Specific [place], POC 1.030 1.003 - 1.030 Blood, ur, POC Negative Negative pH, ur, POC 6.0 5.0 - 8.0 Protein, ur, POC 30.(A) Negative Urobilinogen, urine, POC 0.2 0.2 - 1.0 mg/dL Nitrite, ur, POC Negative Negative Leukocytes, ur, POC Negative Negative Lot Number [id number] Urine 01/18/2024 5:54 PM CDT us Loida Sánchez NP POINT OF CARE TEST ORDERABLES Fi nal Result * Urine culture Urine, clean voided (01/18/2024 5:39 PM CDT) Report Final Report: Less than 100,000 colonies/mL (clinically insignificant growth based on current clinical standards) Comment:Testing performed by : [facility], [address] [place]., [address] Organism (CLINICALLY INSIGNIFICANT GROWTH [facility] Urine, clean voided 01/18/2024 5:39 PM CDT 01/19/2024 9:39 AM CDT Narrative [facility] - 01/20/2024 2:27 PM CDT Testing performed by [facility] ([phone]) us Loida Sánchez NP LAB MICROBIOLOGY - GENERAL ORDER KATHLEEN Final Result [place] [id number] [address] Department [place] [address] documented in this encounter Visit Diagnoses Diagnosis Urinary incontinence, unspecified type- Primary Confusion Unspecified psychosis Urinary incontinence, unspecified type documented in this encounter Care Teams Project Control Manager Relationship Specialty Start Date End Date Christine Herzog MD [address] [facility] [address] [place] [address] PCP - General Internal Medicine 12/02/21 Trey Pinedo MD [address] [place] [address] [address] [place] [address] Consulting Physician Neurology 05/09/19 Albert Craft MD [address] [facility] [address] [place] [address] Consulting Physician Gastroenterology 03/11/22 Chintan Figueroa MD [address] [place] [address] [address] [place] [address] Consulting Physician Hematology and Oncology 03/11/22 Jamele Bloom DPM [address] [place] [address] Consulting Physician Orthotics 03/11/22 Gadiel Genao MD [address] [place] [address] Surgeon Vascular Surgery 03/11/22 documented as of this encounter
--- OUTSIDE RECORDS SUMMARY | 2024-06-18 18:03 | XMS_ITS | Referral Summary ---
Author Organization [facility] Address [address] [place] [address] Care Team Providers Care Theatre Director Name Role Phone Trey Pinedo MD Unavailable [phone] Christine Herzog MD Primary Care Provide r Albert Craft MD Unavailable [phone] Chintan Figueroa MD Unavailable [phone] Jameel Bloom DPM Unavailable [phone] Gadiel Genao MD Unavailable Encounters Date Type Department Care Team Description 05/16/2024 2:30 PM OPERATING ROOM ASSISTANT Infusion [address] [place] [phone] Polycythemia (Primary Dx) 05/16/2024 2:15 PM OPERATING ROOM ASSISTANT Lab [address] [place] [phone] Polycythemia 03/21/2024 2:30 PM CDT Infusion [address] [place] [phone] Polycythemia 03/21/2024 2:15 PM CDT Lab [facility] [address] [facility] [address] [place] [address] Polycythemia from Last 3 Months Allergies Active Allergy Reactions Criticality Noted Date Comments Ciprofloxacin Rash Medium Reaction: RASH, Reaction: Rash, Medications aspirin 81 mg tablet Take one by mouth one time per day 0 0 8 Active atorvastatin (LIPITOR) 40 mg tablet TAKE 1 TABLET BY MOUTH DAILY 90 tablet 1 3 Active lisinopriL (PRINIVIL,ZESTRIL ) 20 mg tablet TAKE 1 TABLET BY MOUTH DAILY 90 tablet 3 3 Active magnesium oxide (MAG-OX) 400 mg (241.3 mg elemental magnesium) tablet TAKE 1 TABLET(400 MG) BY MOUTH TWICE DAILY 180 tablet 1 4 Active amLODIPine (NORVASC) 5 mg tabletIndications :Coronary artery disease involving nenana coronary artery of nenana heart without angina pectoris,Essentia l hypertension,Paro xysmal atrial fibrillation (CMS/HCC) (HCC),Pulmonary hypertension (HCC) TAKE 1 TABLET BY MOUTH DAILY 90 tablet 4 Active rivaroxaban (XARELTO) 20 mg tablet Take 1 tablet (20 mg total) by mouth daily with dinner Active escitalopram (LEXAPRO) 10 mg tablet Take 1 tablet (10 mg total) by mouth daily 90 tablet 3 4 12/31/19 25 Active omeprazole (PriLOSEC) 20 mg capsuleIndication s:Decreased appetite,Stomach discomfort Take 1 capsule (20 mg total) by mouth daily 90 capsule 4 Active memantine (NAMENDA) 5 mg tablet Take 1 tablet (5 mg total) by mouth 2 (two) times a day 180 tablet 1 4 Active Active Problems Problem Noted Date Diagnosed Date Decreased appetite 12/14/2023 Assessment & Plan (12/14/2023 4:18 PM CDT): New concern Possibly from GERD Will send omperazole and a referral to GI for further evaluation and recommendation Will try to get recent ct scan from [facility] Stomach discomfort 12/14/2023 Assessment & Plan (12/14/2023 4:16 PM CDT): Possibly from the chronic gerd We will send omeprazole 20 mg daily Referral to GI given change in appetite Follow-up as needed Class 1 obesity with body ma ss index (BMI) of 30.0 to 30.9 in adult 03/23/2023 Assessment & Plan (03/23/2023 3:14 PM CDT): He was counseled on the importance of maintaining a healthy weight and the risks of obesity. Weight loss recommended. Encourage 150min/ week of exercise Encourage 1500 calories in a day for weight loss Chronic kidney disease (CKD), stage III (moderat e) 03/23/2023 Assessment & Plan (12/14/2023 4:17 PM CDT): Stable / clinically quiescent. Will continue to monitor. Albumin cr urine ratio improved to 55 Encourage hydration Repeat cmp prior to annual Assessment & Plan (03/23/2023 4:01 PM CDT): Stable Cmp urinalysis and microalbumin cr urine ratio in 6 months for monitoring F/u in 6 months Encourage hydration Current use of middle or intermediate school principal anticoagulation 023 PVC (premature ventricular contraction) 02/10/20 Encounter for follow-up exam ination after completed treatment for conditions other than malignant neoplasm 09/22/2022 Assessment & Plan (09/22/2022 4:45 PM CDT): I personally reviewed patient ER visit documentation, imaging and labs. No new medications or changes prescribed upon discharge Return to office with pcp as scheduled Laceration of hand, right, complicated Assessment & Plan (09/22/2022 4:51 PM CDT): Clean hand with warm soapy water, rinse , pat dry Continue with topical antibiotic ointment, apply non-adherent telfa dressing and wrap with kerlix gauze, secure with tape Hematoma 09/22/2022 Assessment & Plan (09/22/2022 4:54 PM CDT): Ice at 20 minute interval Elevated hand on pillows to help reduce swelling Ordered x-ray to be completed in 4 days after swelling improved to evaluate for possible fracture Pulmonary hypertension 09/06/2022 Assessment & Plan (03/22/2023 7:11 AM CDT): Stable / clinically quiescent. Will continue to monitor. Managed by cardiology Biatrial enlargement 09/06/2022 Paroxysmal atrial fibrillation (CMS/HCC) 023 Assessment & Plan (03/22/2023 7:10 AM CDT): Stable / clinically quiescent. Will continue to monitor. Continue following with cardiology Continue eliquis and finasteride managed by cardiology Bradycardia 08/06/2022 Cognitive decline 04/19/2022 Assessment & Plan (04/19/2022 4:33 PM CDT): Progressing MMSE 17 Referral to [facility] Referral for home health to help with medication management Pt refuses to move in with son at this time Son working on getting him to move in F/u in 6 months Dizziness 12/15/2021 Assessment & Plan (12/15/2021 6:29 PM CDT): Orthostatics in office negative Referral to ENT given for evaluation of vertigo Can try scopolamine [id number] for symptomatic relief Generalized weakness 12/09/2021 Assessment & Plan (12/09/2021 6:33 PM CDT): No signs of infection or fluid overload. Suspect weakness due to age related debility. Patient's son requests for patient to have home PT rather than outpatient PT interactive media project manager consulted for the same. Continue PT while in the hospital. Closed fracture of one rib of right side 022 Assessment & Plan (12/09/2021 6:29 PM CDT): Secondary to fall. Patient reports pain is well controlled at this time Will continue lidocaine patches for pain control, continue physical therapy Closed fracture of one rib of right side, initia l encounter 12/08/2021 Obstructive sleep apnea 03/02/2021 Assessment & Plan (03/22/2023 7:12 AM CDT): Refuses cpap machine Assessment & Plan (03/10/2022 5:29 PM CDT): Refuses cpap machine Assessment & Plan (03/02/2021 12:48 PM CDT): The patient was offered alternatives to the CPAP. The patient was offered an oral appliance and possibly the inspire device. The patient denies the want for any treatment for his obstructive sleep apnea at this time. I did inform the patient due to the severity of his obstructive sleep apnea that he does have a higher risk for heart attacks, strokes, irregular heartbeats and possible . The patient verbalized understanding. Hypersomnia 01/28/2021 Assessment & Plan (01/28/2021 3:57 PM CDT): The patient presents with witnessed apneas and daytime hypersomnia. I have recommended proceeding with a nocturnal polysomnogram with a split night protocol if necessary and no MSLT. Mayo's esophagus with dysplasia 11/12/2019 Overview (11/12/2019): Added automatically from request for surgery [id number] Type 2 diabetes mellitus with hyperlipidemia Assessment & Plan (12/14/2023 2:36 PM CDT): The patient was counseled on a heart-healthy, diabetic-friendly diet, as well as life-style modification. Education provided on the diagnosis and risks of the disease. We will continue to monitor routine labs. Additionally, He was counseled on routine diabetic eye exams, foot exams, and other preventive care. Most recent A1c on file Lab Results Component Value Date HGBA1C 6.7 (H) 12/14/2023 Goal <8 Continue with diet and exercise A1c reviewed F/u in 3 months at annual Assessment & Plan (03/23/2023 4:00 PM CDT): The patient was counseled on a heart-healthy, diabetic-friendly diet, as well as life-style modification. Education provided on the diagnosis and risks of the disease. We will continue to monitor routine labs. Additionally, He was counseled on routine diabetic eye exams, foot exams, and other preventive care. Most recent A1c on file Lab Results Component Value Date HGBA1C 6.2 (H) 01/26/2023 Continue with diet and exercise A1c reviewed F/u in 6 months Assessment & Plan (11/15/2022 9:48 PM CDT): The patient was counseled on a heart-healthy, diabetic-friendly diet, as well as life-style modification. Education provided on the diagnosis and risks of the disease. We will continue to monitor routine labs. Additionally, He was counseled on routine diabetic eye exams, foot exams, and other preventive care. Most recent A1c on file Lab Results Component Value Date HGBA1C 5.9 (H) 11/03/2022 Continue with diet and exercise A1c reviewed F/u in 3 months Assessment & Plan (03/10/2022 4:07 PM CDT): The patient was counseled on a heart-healthy, diabetic-friendly diet, as well as life-style modification. Education provided on the diagnosis and risks of the disease. We will continue to monitor routine labs. Additionally, He was counseled on routine diabetic eye exams, foot exams, and other preventive care. Most recent A1c on file:5.7 Continue with diet and exercise A1c ordered today Micro/Cr ur ratio ordered F/u in 3 months Cerebrovascular arteriosclerosis 05/20/2019 Assessment & Plan (08/16/2019 10:51 AM OPERATING ROOM ASSISTANT): Uncontrolled HTN certainly a concern given hx of TIA, CAD. Education provided to him and of importance in HTN regimen. Assessment & Plan (05/20/2019 10:17 AM OPERATING ROOM ASSISTANT): CT imaging detailed above demonstrating cerebrovascular arteriosclerosis in 2017 and again during recent hospitalization. Given TIA, Hx of CAD, recommending increase Lipitor to 80 mg daily, Cnt. Aspirin and Plavix for dual anti-platelet therapy, repeat venous duplex in 1 year. Bilateral carotid artery disease 05/20/2019 Assessment & Plan (03/23/2023 3:58 PM CDT): Stable Released from vascular surgery Assessment & Plan (03/10/2022 4:06 PM CDT): Continue Following with vascular surgery TIA (transient ischemic attack) 05/08/2019 Assessment & Plan (05/20/2019 10:21 AM OPERATING ROOM ASSISTANT): Chads Vasc score 3/9 with recent TIA, imaging all negative for acute stroke. Hx of CVD, CVA, CAD does recommending Pt to Cnt. Dual anti-platelet therapy for at least 3 months or can consider stepping down from Plavix only if recommended by photocomposing machine operator, increasing atorvastatin 80 mg daily. History of noncompliance with medical treatment 05/08/2019 History of colon polyps 11/17/2018 Assessment & Plan (11/17/2018 11:24 AM CDT): Colonoscopy last year showed few adenoma polyps removed. Next colonoscopy will be 2020. Bladder stones 2017 Coronary artery disease invo lving nenana coronary artery of nenana heart without angina pectoris 2017 Assessment & Plan (03/23/2023 3:12 PM CDT): Stable / clinically quiescent. Will continue to monitor. Continue with asa and plavix and statin Continue following with cardiology Assessment & Plan (03/10/2022 4:04 PM CDT): Stable / clinically quiescent. Will continue to monitor. Continue with asa and plavix and statin Assessment & Plan (12/09/2021 6:30 PM CDT): Stable. No chest pain at this time. Continue home ASA, Plavix, statin, beta johanne Assessment & Plan (05/20/2019 10:19 AM OPERATING ROOM ASSISTANT): Hx of CAD with stents, HLD, arteriosclerosis noted recent CT imaging. Increasing Lipitor to 80 mg a day for improved HLD control, future CBD protection. Cnt. Dual anti-platelet therapy, metoprolol, clonidine patch, heart healthy diet, F/U Cardiology as scheduled. Chronic GERD 2017 Assessment & Plan (03/22/2023 7:11 AM CDT): Stable / clinically quiescent. Will continue to monitor. Continue with nexium as needed. Has not needed Assessment & Plan (03/10/2022 4:08 PM CDT): Stable / clinically quiescent. Will continue to monitor. Continue with nexium as needed. Has not needed Assessment & Plan (05/20/2019 10:22 AM OPERATING ROOM ASSISTANT): Stable. Cnt. Current Nexium dosing. Assessment & Plan (11/17/2018 11:21 AM CDT): Patient is doing well on Nexium. Will continue the same. Polycythemia 07/07/2017 Assessment & Plan (03/22/2023 7:11 AM CDT): Continue following with hematology Assessment & Plan (07/07/2017 3:41 PM OPERATING ROOM ASSISTANT): Patient is currently undergoing treatment per Hematology. He is concerned his blood counts may be drifting upward and request CBC today. Blood work will be drawn and results will be forwarded along to payment collector for review as well. Further direction pending these results. He is to contact the office if he has not heard from me by Monday afternoon for review. Sensorineural hearing loss, bilateral 05/05/2017 Assessment & Plan (05/05/2017 8:21 AM CDT): Patient demonstrates bilateral symmetrical downsloping sensorineural hearing loss. This appears to be progressive. Patient has been exposed to loud noises that are occupationally induced. Patient meets indications for hearing aid amplification. Patient was provided with educational material from our audiologists. Patient can schedule consultation for hearing aid amplification assessment. Recommend repeat audiogram in 5 years. Benign prostatic hyperplasia with lower urinary tract symptoms 12/26/2016 Assessment & Plan (11/16/2022 3:40 PM CDT): Elevated psa Repeat psa now, if still elevated will refer to urology Assessment & Plan (03/10/2022 5:29 PM CDT): PSA ordered If still elevated will send to urology Assessment & Plan (05/20/2019 10:16 AM OPERATING ROOM ASSISTANT): Asymptomatic and stable medication. Cnt. Proscar, Flomax. Essential hypertension 12/26/2016 Assessment & Plan (12/14/2023 2:36 PM CDT): Bp in the office today BP Readings from Last 1 Encounters: 12/14/23 108/50 Continue current regimen of metoprolol 50mg daily Recommend DASH diet, heart-healthy lifestyle, exercise. Discussed the risks of hypertension. F/u in 3 months Assessment & Plan (03/23/2023 4:07 PM CDT): Bp in the office today BP Readings from Last 1 Encounters: 03/23/23 140/80 Continue current regimen of metoprolol 50mg daily Recommend DASH diet, heart-healthy lifestyle, exercise. Discussed the risks of hypertension. F/u in 6 months Assessment & Plan (11/15/2022 9:47 PM CDT): Bp in the office today BP Readings from Last 1 Encounters: 11/03/22 (!) 202/86 Continue current regimen of metoprolol 50mg daily Recommend DASH diet, heart-healthy lifestyle, exercise. Discussed the risks of hypertension. Assessment & Plan (03/10/2022 4:03 PM CDT): Bp in the office today BP Readings from Last 1 Encounters: 03/10/22 160/80 Continue current regimen of metoprolol 50mg daily Recommend DASH diet, heart-healthy lifestyle, exercise. Discussed the risks of hypertension. Assessment & Plan (12/09/2021 6:30 PM CDT): BP was elevated on presentation, likely due to pain. Home med Toprol Xl resumed, BP is now well controlled Continue to monitor. Assessment & Plan (05/20/2019 10:21 AM OPERATING ROOM ASSISTANT): Much improved with clonidine patch. Pt was encouraged to Cnt. To wear this patch daily, Cnt. Prior prescribed metoprolol heart healthy diet. I did encourage him to purchase some machine at home and monitor blood pressure readings. RTC in 3 months for repeat blood pressure check or sooner as needed. Medicare annual wellness visit, subsequent 12/26 Assessment & Plan (03/22/2023 7:14 AM CDT): cbc, cmp A1c and lipid ordered Declines flu zoster and pneumonia vaccine Colonoscopy: cologaurd ordered F/u in 1 year for annual Assessment & Plan (03/10/2022 5:31 PM CDT): Recent cbc, cmp and lipid reviewed PSA ordered Declines flu and pneumonia vaccine Colonoscopy: cologaurd ordered F/u in 1 year for annual F/u in 1 month for MMSE Kidney stones 12/26/2016 Hyperlipidemia 11/16/2013 Overview (10/05/2016): HYPERLIPIDEMIA NEC/NOS Assessment & Plan (03/22/2023 7:09 AM CDT): Stable / clinically quiescent. Will continue to monitor. Continue atorvastatin 40mg daily Assessment & Plan (03/10/2022 4:02 PM CDT): Stable / clinically quiescent. Will continue to monitor. Continue atorvastatin 40mg daily Assessment & Plan (12/09/2021 6:31 PM CDT): Continue statin Assessment & Plan (05/20/2019 10:20 AM OPERATING ROOM ASSISTANT): Increase Lipitor to 80 mg a day for mention. S/Es to report office discussed given increase. Repeat FLP, CMP/liver function in 3 months. Elevated brain natriuretic peptide (BNP) level Resolved Problems Problem Noted Date Diagnosed Date Resolved Date Hospital discharge follow-up 12/15/2021 03/22/2023 Assessment & Plan (12/15/2021 6:29 PM CDT): Medications reviewed. Hospital course reviewed Resistant hypertension 08/16/201910/24 Assessment & Plan (08/16/2019 10:50 AM OPERATING ROOM ASSISTANT): Improving, but uncontrolled. Cont valsartan, metoprolol and adding clonidine patch back into regimen. New script written for BP machine D/T home machine inaccuracies. Sx to monitor for, report given to both him and . Repeat BMP in 1 month D/T recently starting valsartan. RTC next week as scheduled. History of recent hospitalization 05/20/2019 05/20/2019 Assessment & Plan (05/20/2019 10:11 AM OPERATING ROOM ASSISTANT): Recent hospitalization records reviewed with labs and diagnostics all detailed above Hypertensive emergency 05/08/201905/20 Type 2 diabetes mellitus with hyperlipidemia 8 11/29/2018 Skin tear of left hand without complication 08/21/2017 2017 Assessment & Plan (08/21/2017 1:58 PM OPERATING ROOM ASSISTANT): Patient has adequate supply Bactroban previously prescribed. He was encouraged to apply this to the site of the skin tear and cover with nonadherent dressing until healed. We review signs and symptoms of secondary infection and what to watch out for. He verbalized understanding and was in agreement with the plan of care as was his who accompanied him today. Cellulitis of hand, left 08/15/2017 Assessment & Plan (08/21/2017 1:57 PM OPERATING ROOM ASSISTANT): Resolved. There is no indication for additional antibiotics at the present time. Assessment & Plan (08/15/2017 12:08 PM OPERATING ROOM ASSISTANT): Patient was encouraged to apply topical antibiotic ointment to sites of abrasions as directed in the ER. He will complete his antibiotic course as directed noting significant improvement since beginning. Patient has a 7 day supply of medication. I requested he return to the office on Monday for repeat assessment. We may extend antibiotic course at that time depending on his response to treatment. Both he and his verbalized understanding and were in agreement with the plan of care. Abrasion of hand 08/15/2017 08/21/2017 Assessment & Plan (08/15/2017 12:07 PM OPERATING ROOM ASSISTANT): Patient was encouraged to apply topical Bactroban as directed. He was also encouraged to wash the area with antibacterial soap once to twice daily. Pat dry. And apply topical antibiotic ointment. He may covered with dressing as needed. He will return for repeat evaluation early next week. Certainly sooner with any change in or worsening of his condition. Great toe pain, right 07/07/20172017 Assessment & Plan (07/07/2017 3:40 PM OPERATING ROOM ASSISTANT): Patient has an abrasion on the plantar aspect of the foot at the base of the right great toe. His accompanies him today. She feels comfortable and aiding him in cleansing the area, applying antibiotic ointment, and covering with a Band-Aid. We discussed signs and symptoms of secondary infection and what to watch out for. All were in agreement. She will continue this treatment regimen until healed. Injury of coccyx 07/07/2017 2017 Assessment & Plan (07/07/2017 3:40 PM OPERATING ROOM ASSISTANT): I recommended we proceed with x-ray of the sacrum and coccyx to rule out underlying fracture. Further direction pending x-ray results. Sebaceous cyst 06/11/2017 2017 Assessment & Plan (06/11/2017 5:14 PM OPERATING ROOM ASSISTANT): Discussed with the patient the results. Patient was made aware that this is a benign lesion. Excisional biopsy is an option verses monitoring. Patient currently would like to a keep an eye on it. Should it get any larger or start to cause him any problems patient should return back to my office for further evaluation. Patient can otherwise follow back up with as needed. H/O polycythemia 04/18/2017 2017 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 12/27/2016 02/26/2020 Assessment & Plan (05/20/2019 10:16 AM OPERATING ROOM ASSISTANT): Closely by . Next EGD scheduled for 2020. Cnt. Nexium therapy prior advised. 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 Next EGD should be in year 2021 for surveillance. Coronary artery disease invo lving nenana heart without angina pectoris 12/26/2016 2017 Type 2 diabetes mellitus 11/16/2013 Overview (10/05/2016): DMII WO CMP NT ST UNCNTR Chronic obstructive pulmonary disease 11/16/2013 2017 Overview (10/07/2016): CHR AIRWAY OBSTRUCT NEC Immunizations Name Administration Dates Next Due Influenza, Trivalent, High D ose, Split, Preservative Free, Intramuscular 09/22/2022(Deferred: Patient Refused) Influenza, Unspecified 10/01/2023(Deferr ed: Patient Refused),11/16/2022(Deferred: Patient Refused),09/22/2022(Deferred: Patient Refused),03/10/2022(Deferred: Patient Refused),01/31/2022(Deferred: Patient Refused),12/15/2021(Deferred: Patient Refused),06/03/2021(Deferred: Patient Refused),03/04/2021(Deferred: Patient Refused),01/31/2021(Deferred: Patient Refused),01/31/2021(Deferred: Patient Refused),08/27/2020(Deferred: Patient Refused),05/11/2020(Deferred: Patient Refused),04/02/2020(Deferred: Patient Refused),02/26/2020(Deferred: Patient Refused),02/26/2020(Deferred: Patient Refused),09/24/2019(Deferred: Patient Refused),08/16/2019(Deferred: Patient Refused),05/20/2019(Deferred: Patient Refused),04/03/2019(Deferred: Patient Refused),04/02/2019(Deferred: Patient Refused),04/02/2018(Deferred: Patient Refused) Pfizer SARS-CoV-2 Monovalent Vaccination (12+ Yrs) PURPLE 09/06/2021,09/22/2020,09/01/2020 Pneumococcal Conjugate, Unspecified 09/22/2022(D eferred: Patient Refused) Tdap 09/16/2022,12/19/2007 Social History Tobacco Use Types Packs/Day Years Used Date Smoking Tobacco: Former Cigarettes 1 40 1 969 - 2009 Smokeless Tobacco: Never Tobacco Cessation:Counseling Given: Not Answered Comments:Quit in 2009 Alcohol Use Standard Drinks/Week [...] often do you attend chur ch or cheondoism services? Patient declined 09/28/2022 Do you belong to any clubs o r organizations such as taoist groups, unions, fraternal or athletic groups, or [...] to sleep or slept in a senior living (including now)? No 09/28/2022 Personal Safety Answer Date Recorded Have you ever been in or are you currently in a harmful physical or emotional relationship or is someone making you feel afraid or unsafe? Denies 09/25/2022 Sex and Gender Information Value Date Recorded Sex Assigned at Not on file 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 OPERATING ROOM ASSISTANT Gender Identity Not on file Sexual Orientation Straight 01/23/2021 10 :16 PM CDT Last Filed Vital Signs Vital Sign Reading Time Taken Comments Blood Pressure 112/68 05/16/2024 4:10 PM OPERATING ROOM ASSISTANT Pulse 56 05/16/2024 4:10 PM OPERATING ROOM ASSISTANT Temperature 36.3 ??C (97.4 ??F) 05/16/2024 2:45 PM CS T Respiratory Rate 18 05/16/2024 4:10 PM OPERATING ROOM ASSISTANT Oxygen Saturation 100% 05/16/2024 4:10 PM OPERATING ROOM ASSISTANT Inhaled Oxygen Concentration - - Weight 90.4 kg (199 lb 3.2 oz) 03/21/2024 2:30 P M CDT Height 170.2 cm (5' 7 ) 01/18/2024 5:39 PM CDT Body Mass Index 31.2 01/18/2024 5:39 PM CDT Plan of Treatment Not on file Goals Goal Patient Goal Type Associated Problems Recent Progress Patient-Stated? Author GULSHAN General Goal - Patient schedules and keeps appointments with all recommended providers [facility]CO Care Management On track(2022 11:14 AM OPERATING ROOM ASSISTANT) Sepideh Guo, SUE Note: Problem: Potential for [...] orders or changes made to medication regimen. Medical Devices Implanted Type Area Barrel Builder Device Identifier Shelf Expiration Date Model / Serial / Lot Xience-09/04/2012 Implanted:09/04 (Quantity not on file) Coronary Procedures Procedure Name Priority Date/Time Associated Diagnosis Comments DIFFERENTIAL AUTO Routine 05/16/2024 2:4 5 PM OPERATING ROOM ASSISTANT Polycythemia CBC WITH AUTO DIFFERENTIAL Routine 05/16/2024 2:45 PM OPERATING ROOM ASSISTANT Polycythemia DIFFERENTIAL AUTO Routine 03/21/2024 2:3 5 PM CDT Polycythemia CBC WITH AUTO DIFFERENTIAL Routine 03/21/2024 2:35 PM CDT Polycythemia EGFR Routine 03/02/2024 10:13 AM CDT LIPID PANEL Routine 03/02/2024 10:13 AM CDT HEMOGLOBIN A1C Routine 12/14/2023 9:36 AM CDT Type 2 diabetes mellitus with hyperlipidemia (HCC) ALBUMIN CREATININE RATIO, URINE Routine 12/14/2023 9:36 AM CDT Type 2 diabetes mellitus with hyperlipidemia (HCC) PSA SCREEN Routine 01/26/2023 12:39 PM CDT Benign prostatic hyperplasia with lower urinary tract symptoms, symptom details unspecified CT CHEST ABDOMEN PELVIS WO CONTRAST ED 12/08/2021 9:[address] LUNG CANCER SCREENING Schedule Routine, Read Routine (OP Routine) 09/09/2020 1:02 PM OPERATING ROOM ASSISTANT History of tobacco abuse Encounter for screening for lung cancer DIABETIC EYE EXAM Routine 02/03/2020 COLONOSCOPY 01/09/2018 8:46 AM CDT DIABETES FOOT EXAM Routine 08/18/2016 HEPATITIS C SCREENING Routine 06/17/2016 from Last 3 Months or Most Recently Relevant to Health Maintenance Results * Differential, auto (05/16/2024 2:45 PM OPERATING ROOM ASSISTANT) Neutrophil abs 4.7 1.5 - 6.5 K/cumm Comment:Testing performed by : [facility] [address], Medical Office [facility] [address], [place] [address] Imm gran abs 0.0 0.0 - 0.1 K/cumm [facility] ([place]) Comment:Testing performed by : [facility] [address], Medical Office [facility] [address], [place] [address] Lymphocyte abs 1.1 0.8 - 3.3 K/cumm [facility] ([place]) Comment:Testing performed by : [facility] [address], Medical Office [facility] [address], [place] [address] Monocyte abs 0.8 0.2 - 0.8 K/cumm [facility] ([place]) Comment:Testing performed by : [facility] [address], Medical Office [facility] [address], [place] [address] Eosinophil abs 0.2 0.0 - 0.5 K/cumm [facility] ([place]) Comment:Testing performed by : [facility] [address], Medical Office [facility] [address], [place] [address] Basophil abs 0.1 0.0 - 0.1 K/cumm [facility] ([place]) Comment:Testing performed by : [facility] [address], Medical Office [facility] [address], [place] [address] Neutrophil pct 68.4 % [facility] ([place]) Comment: Interpretive Data Percent cell count reference ranges are not reported, since discordance with absolute values may lead to misinterpretation of CBC data. Current Interpretive Data was last revised on 2022. Testing performed by: [facility] [address], Medical Office [address]ld[address], [place] [address] Imm gran pct 0.0 % [facility] ([place]) Comment: Interpretive Data Percent cell count reference ranges are not reported, since discordance with absolute values may lead to misinterpretation of CBC data. Current Interpretive Data was last revised on 2022. Testing performed by: [facility] [address], Medical Office [address], [place] [address] Lymphocyte pct 16.6 % [facility] ([place]) Comment: Interpretive Data Percent cell count reference ranges are not reported, since discordance with absolute values may lead to misinterpretation of CBC data. Current Interpretive Data was last revised on 2022. Testing performed by: [facility] [address], Medical Office d[address], [place] [address] Monocyte pct 11.0 % [facility] ([place]) Comment: Interpretive Data Percent cell count reference ranges are not reported, since discordance with absolute values may lead to misinterpretation of CBC data. Current Interpretive Data was last revised on 2022. Testing performed by: [facility] [address], Medical Office [address], [place] [address] Eosinophil pct 2.2 % [facility] ([place]) Comment: Interpretive Data Percent cell count reference ranges are not reported, since discordance with absolute values may lead to misinterpretation of CBC data. Current Interpretive Data was last revised on 2022. Testing performed by: [facility] [address], Medical Office [address], [place] [address] Basophil pct 1.8 % [facility] ([place]) Comment: Interpretive Data Percent cell count reference ranges are not reported, since discordance with absolute values may lead to misinterpretation of CBC data. Current Interpretive Data was last revised on 2022. Testing performed by: [facility] [address], Medical Office [address], [place] [address] Blood 05/16/2024 2:45 PM OPERATING ROOM ASSISTANT 05/16/2024 2:49 PM OPERATING ROOM ASSISTANT Bronwynsukumar Nava MONITOR TECH LAB BLOOD ORDERABLES Final Result [facility] ([place]) 1 [facility] Department [place] [address] * (ABNORMAL) CBC with auto differential (05/16/2024 2:45 PM OPERATING ROOM ASSISTANT) WBC 6.6 3.8 - 9.9 K/cumm Comment:Testing performed by : [place], [address] Hgb 14.3 13.0 - 17.5 g/dL [facility] ([place]) Comment:Testing performed by : [place], [address] Hct 48.5 38.9 - 50.3 % [facility] ([place]) Comment:Testing performed by : [place], [address] Plt 197 150 - 400 K/cumm [facility] ([place]) Comment:Testing performed by : [place], [address] MPV 11.1 9.1 - 12.3 fL [facility] ([place]) Comment:Testing performed by : [place], [address] RBC 6.22(H) 4.30 - 5.80 M/cumm [facility] ([place]) Comment:Testing performed by : [place], [address] MCV 78.0(L) 81.3 - 96.4 fL [facility] ([place]) Comment:Testing performed by : [place], [address] MCH 23.0(L) 27.1 - 33.3 pg [facility] ([place]) Comment:Testing performed by : [place], [address] MCHC 29.5(L) 32.3 - 35.7 g/dL [facility] ([place]) Comment:Testing performed by : [facility], [facility], [place], [address] RDW CV 18.8(H) 11.1 - 14.9 % [facility] ([place]) Comment:Testing performed by : [facility], [facility], [place], [address] RDW SD 50.4(H) 35.7 - 48.1 fL [facility] ([place]) Comment:Testing performed by : [facility], [facility], [place], [address] NRBC abs Not Measured 0.00 - 0.01 K/cumm [facility] ([place]) Comment:Testing performed by : [facility], [facility], [place], [address] Blood 05/16/2024 2:45 PM OPERATING ROOM ASSISTANT 05/16/2024 2:49 PM OPERATING ROOM ASSISTANT Bronwyn Nava MONITOR TECH LAB BLOOD ORDERABLES Final Result Performing Organization Address City/State/[facility] Co de Phone Number [facility] ([place]) 1 [facility] Department [place] [address] * Differential, auto (03/21/2024 2:35 PM CDT) Neutrophil abs 4.3 1.5 - 6.5 K/cumm Comment:Testing performed by : [facility] [address], Medical Office [facility] [address], [place] [address] Imm gran abs 0.0 0.0 - 0.1 K/cumm [facility] ([place]) Comment:Testing performed by : [facility] [address], Medical Office [facility] [address], [place] [address] Lymphocyte abs 1.2 0.8 - 3.3 K/cumm [facility] ([place]) Comment:Testing performed by : [facility] [address], Medical Office [facility] [address], [place] [address] Monocyte abs 0.7 0.2 - 0.8 K/cumm [facility] ([place]) Comment:Testing performed by : [facility] [address], Medical Office [facility] [address], [place] [address] Eosinophil abs 0.2 0.0 - 0.5 K/cumm [facility] ([place]) Comment:Testing performed by : [facility] [address], Medical Office [facility] [address], [place] [address] Basophil abs 0.1 0.0 - 0.1 K/cumm [facility] ([place]) Comment:Testing performed by : [facility] [address], Medical Office [facility] [address], [place] [address] Neutrophil pct 65.4 % [facility] ([place]) Comment: Interpretive Data Percent cell count reference ranges are not reported, since discordance with absolute values may lead to misinterpretation of CBC data. Current Interpretive Data was last revised on 2022. Testing performed by: [facility] [address], Medical Office [facility] [address], [place] [address] Imm gran pct 0.3 % [facility] ([place]) Comment: Interpretive Data Percent cell count reference ranges are not reported, since discordance with absolute values may lead to misinterpretation of CBC data. Current Interpretive Data was last revised on 2022. Testing performed by: [facility] [address], Medical Office [facility] [address], [place] [address] Lymphocyte pct 19.0 % [facility] ([place]) Comment: Interpretive Data Percent cell count reference ranges are not reported, since discordance with absolute values may lead to misinterpretation of CBC data. Current Interpretive Data was last revised on 2022. Testing performed by: [facility] [address], Medical Office [facility] [address], [place] [address] Monocyte pct 11.1 % [facility] ([place]) Comment: Interpretive Data Percent cell count reference ranges are not reported, since discordance with absolute values may lead to misinterpretation of CBC data. Current Interpretive Data was last revised on 2022. Testing performed by: [facility] [address], Medical Office [facility] [address], [place] [address] Eosinophil pct 2.8 % [facility] ([place]) Comment: Interpretive Data Percent cell count reference ranges are not reported, since discordance with absolute values may lead to misinterpretation of CBC data. Current Interpretive Data was last revised on 2022. Testing performed by: [facility] [address], Medical Office [facility] [address], [place] [address] Basophil pct 1.4 % [facility] ([place]) Comment: Interpretive Data Percent cell count reference ranges are not reported, since discordance with absolute values may lead to misinterpretation of CBC data. Current Interpretive Data was last revised on 2022. Testing performed by: [facility] [address], Medical Office [facility] [address], [place] [address] Blood 03/21/2024 2:35 PM CDT 03/21/2024 2:36 PM CDT Bronwyn Nava MONITOR TECH LAB BLOOD ORDERABLES Final Result [facility] ([place]) 1 [facility] Department [place] [address] * (ABNORMAL) CBC with auto differential (03/21/2024 2:35 PM CDT) WBC 6.5 3.8 - 9.9 K/cumm Comment:Testing performed by : [facility] [address], Medical Office [facility] [address], [place] [address] Hgb 12.9(L) 13.0 - 17.5 g/dL [facility] ([place]) Comment:Testing performed by : [facility] [address], Medical Office [facility] [address], [place] [address] Hct 43.2 38.9 - 50.3 % [facility] ([place]) Comment:Testing performed by : [facility] [address], Medical Office [facility] [address], [place] [address] Plt 222 150 - 400 K/cumm [facility] ([place]) Comment:Testing performed by : [facility] [address], Medical Office [facility] [address], [place] [address] MPV 9.6 9.1 - 12.3 fL [facility] ([place]) Comment:Testing performed by : [facility] [address], Medical Office [facility] [address], [place] [address] RBC 5.64 4.30 - 5.80 M/cumm [facility] ([place]) Comment:Testing performed by : [facility] [address], Medical Office [facility] [address], [place] [address] MCV 76.6(L) 81.3 - 96.4 fL [facility] ([place]) Comment:Testing performed by : [facility] [address], Medical Office [facility] [address], [place] [address] MCH 22.9(L) 27.1 - 33.3 pg [facility] ([place]) Comment:Testing performed by : [facility] [address], Medical Office [facility] [address], [place] [address] MCHC 29.9(L) 32.3 - 35.7 g/dL [facility] ([place]) Comment:Testing performed by : [facility] [address], Medical Office [facility] [address], [place] [address] RDW CV 17.1(H) 11.1 - 14.9 % [facility] ([place]) Comment:Testing performed by : [facility] [address], Medical Office [facility] [address], [place] [address] RDW SD 46.5 35.7 - 48.1 fL [facility] ([place]) Comment:Testing performed by : [facility] [address], Medical Office [facility] [address], [place] [address] NRBC abs Not Measured 0.00 - 0.01 K/cumm [facility] ([place]) Comment:Testing performed by : [facility] [address], Medical Office [facility] [address], [place] [address] Blood 03/21/2024 2:35 PM CDT 03/21/2024 2:36 PM CDT Bronwyn Nava NP LAB BLOOD ORDERABLES Final Result [facility] ([place]) 1 [facility] [place] [address] * (ABNORMAL) eGFR (03/02/2024 10:13 AM CDT) eGFR 57(L) >=60 mL/min/1. 73 m2 Comment: [...] LAB BLOOD ORDERABLES Final R esult [facility] ([place]) 1 [facility] Department [place] [address] * Lipid panel (03/02/2024 10:13 AM CDT) [...] 2018. Chol/HDL ratio 3 [facility] ([place]) Blood 03/02/2024 10:1 3 AM CDT 03/02/2024 10:43 AM CDT Narrative [facility] ([place]) - 03/02/2024 11:10 AM CDT fax results to [phone] us Bijal Galindo MD LAB BLOOD ORDERABLES Final R esult [facility] ([place]) 1 [facility] [place] [address] * (ABNORMAL) Albumin Creatinine Ratio, Urine (12/14/2023 9:36 AM CDT) Albumin Ur 135.9 mg/L Comment: Interpretive Data No reference range established. Current interpretive data was last revised 2018. Testing performed by: [facility], [address] [place] [address]., [address] Creatinine Ur 247.3 mg/dL [facility] ([place]) Comment: Interpretive Data No reference range established. Current interpretive data was last revised 2018. Testing performed by: [facility], [address] [place] [address]., [id number] Albumin Creatinine Ratio, Ur 55(H) 1 - 29 mg/g [facility] ([place]) Comment:Testing performed by : [address] [address] Urine 12/14/2023 9:36 AM CDT 12/14/2023 1:31 PM CDT Narrative [facility] ([place]) - 12/14/2023 2:34 PM CDT Non fasting us Christine Herzog MD LAB URINE ORDERABLES Final Result [facility] ([place]) 1 [facility] Department [place] [address] * (ABNORMAL) Hemoglobin A1c (12/14/2023 9:36 AM CDT) [facility] Hgb A1C 6.7(H) 4.0 - 5.6 % Estimated Average Glucose 146 mg/dL [facility] ([place]) Comment: The ADA recommends reporting an estimated Average Glucose (eAG) with all Hemoglobin A1c results using the equation derived from a study of 507 normal and diabetic adults. ??Minority populations were underrepresented and children were not included. ?? (Diabetes Care 31:7589-9982, 2008). ??The eAG is not equivalent to a fasting glucose. Blood 12/14/2023 9:36 AM CDT 12/14/2023 10:33 AM CDT Narrative [facility]) - 12/14/2023 11:02 AM CDT fasting Christine Herzog MD LAB BLOOD ORDERABLES Final Result [facility] ([place]) 1 [facility] [place] [address] * PSA screen (01/26/2023 12:39 PM CDT) [facility] PSA-Total 2.31 <=6.20 ng/mL [facility] ([place]) Comment: Interpretive Data ?AGE ? SEX ?REFERENCE INTERVAL 0 minutes-150 years ?Female ?None 0 minutes-49 years ? Male ?None ? 50-59 years ? Male ?0-3.90 ? 60-69 years ? Male ?0-5.40 ? 70-79 years ? Male ?0-6.20 ? 80-150 years ?Male ?0-6.20 The [employer] PSA Total assay procedure was used. Results from different manufacturers or methods may not be comparable. Serial testing should be performed using the same method. Current interpretive data last revised 21. Blood 01/26/2023 12:3 9 PM CDT 01/26/2023 1:56 PM CDT us Christine Herzog MD LAB BLOOD ORDERABLES Final Result [facility] ([place]) 1 [facility] Department [place] [address] * CT Chest Abdomen Pelvis WO Contrast (12/08/2021 9:37 PM CDT) Anatomical Region Laterality Modality Body N/A Computed Tomogra phy 12/08/2021 9:51 PM CDT Narrative 12/08/2021 10:00 PM CDT EXAM DESCRIPTION: ?? CT CHEST ABDOMEN PELVIS WO CONTRAST REASON FOR STUDY: ?? Status post fall today out of a bath tub, hitting the right rib area. ??Pain on the right ribs that radiates posteriorly. ??No other prior injury. ??Patient has fractured ribs on the left side in the past. TECHNIQUE: CT scan of the chest, abdomen, and pelvis performed without intravenous and ?? without ??oral contrast using helical scanning technique. ?? Reconstructed coronal and sagittal MPR images reviewed. ??All images stored on PACS. ??Automated exposure control was used as a dose optimization technique for this examination. COMPARISON: ?? 12/28/2020 FINDINGS: The sensitivity for detection of visceral lesions is diminished without the use of intravenous contrast. CHEST LUNGS: ?? Mild dependent atelectasis of the left lung and in the right lung base. ??No confluent consolidation or suspicious nodules. PLEURA: ?? No effusion. No pneumothorax. MEDIASTINUM/BRIAN: ?? No identified masses or abnormal nodes. HEART: ?? Heart size is normal with trace pericardial effusion. ?? Dense 3 vessel coronary artery atherosclerotic calcification present. VASCULATURE CHEST: ?? No thoracic aortic aneurysm. AXILLA: ?? No adenopathy. CHEST WALL: ?? No masses. ??No subcutaneous air. HARDWARE/LINES/TUBES: ?? None. MUSCULOSKELETAL CHEST: ?? Mild diffuse spinal degenerative changes. ??A mildly displaced acute fracture is seen in the right posterior 10th rib. ??No suspicious osseous lesions. ABDOMEN/PELVIS LIVER: ?? Normal size. ??No identified cystic or solid masses. No cysts. GALLBLADDER: ?? No stones identified. No wall thickening or inflammatory changes. BILE DUCTS: ?? No intrahepatic or extrahepatic ductal dilatation. SPLEEN: ?? Normal size. ??No focal lesions. PANCREAS: ?? No identified cystic or solid masses. ??No significant calcifications. No adjacent inflammation or peripancreatic fluid collections. Pancreatic duct not dilated. ADRENALS: ?? Normal. KIDNEYS/URINARY TRACT: ?? Multifocal mild renal cortical scarring of the left kidney, likely sequela of prior infection. ??No identified significant cystic or solid masses. ??A 3 mm stone is present in superior pole of the left kidney. No hydronephrosis or hydroureter. ?? A 4.2 cm cyst again seen in the lower pole of the left kidney. ?? Urinary bladder is unremarkable. GI: ?? No dilated bowel loops. No obvious wall thickening. ??Normal appendix. ?? Multiple diverticula again seen in the descending and sigmoid colon, with minimal pericolonic fat stranding adjacent to the sigmoid colon which appears decreased from prior. PERITONEUM: ?? No ascites or free air. RETROPERITONEUM: ?? No mass or adenopathy. REPRODUCTIVE: ?? Moderate prostate enlargement is stable. VASCULATURE ABDOMEN: ?? Moderate aortoiliac atherosclerotic calcifications. ??No abdominal aortic aneurysm. MUSCULOSKELETAL ABDOMEN PELVIS: ?? Mild diffuse degenerative disc disease in the lumbar spine. ??No suspicious osseous lesions or acute fractures. OTHER: ?? A moderate size fat containing umbilical hernia is unchanged. IMPRESSION: ??1. ??Mildly displaced acute fracture of the right posterior 10th rib. 2. ??Significant three-vessel coronary artery atherosclerotic calcification. ?? No acute process in the chest. 3. ??Sigmoid diverticulosis with mild pericolonic fat stranding which is decreased compared to prior study, possibly sequela of prior diverticulitis, with an acute episode of mild/uncomplicated diverticulitis not completely excluded. ??Recommend correlation with any symptoms of lower abdominal/pelvic pain. 4. ??3 mm nonobstructing left renal stone. 5. ??Stable moderate prostate enlargement. 6. ??Stable moderate size fat containing umbilical hernia. THIS IS AN ELECTRONICALLY VERIFIED FINAL REPORT 12/08/2021 10:00 PM - Electronically signed by ??Trey Siegel M.D. ML: ML D: ??12/08/2021 10:00 PM T: ??12/08/2021 10:00 PM Report ID: [id number] Reading Location: ??[id number] Procedure Note Trey Siegel MD - 12/08/2021 EXAM DESCRIPTION: CT CHEST ABDOMEN PELVIS WO CONTRAST REASON FOR STUDY: Status post fall today out of a bath tub, hitting the right rib area. Pain on the right ribs that radiates posteriorly. Noother prior injury. Patient has fractured ribs on the left side in the past. TECHNIQUE: CT scan of the chest, abdomen, and pelvis performed without intravenous and without oral contrast using helical scanning technique. Reconstructed coronal and sagittal MPR images reviewed. All images storedon PACS. Automated exposure control was used as a dose optimizationtechnique for this examination. COMPARISON: 12/28/2020 FINDINGS: The sensitivity for detection of visceral lesions is diminished withoutthe use of intravenous contrast. CHEST LUNGS: Mild dependent atelectasis of the left lung and in the right lung base. No confluent consolidation or suspicious nodules. PLEURA: No effusion. No pneumothorax. MEDIASTINUM/BRIAN: No identified masses or abnormal nodes. HEART: Heart size is normal with trace pericardial effusion. Dense 3 vessel coronary artery atherosclerotic calcification present. VASCULATURE CHEST: No thoracic aortic aneurysm. AXILLA: No adenopathy. CHEST WALL: No masses. No subcutaneous air. HARDWARE/LINES/TUBES: None. MUSCULOSKELETAL CHEST: Mild diffuse spinal degenerative changes. Amildly displaced acute fracture is seen in the right posterior 10th rib. No suspicious osseous lesions. ABDOMEN/PELVIS LIVER: Normal size. No identified cystic or solid masses. No cysts. GALLBLADDER: No stones identified. No wall thickening or inflammatory changes. BILE DUCTS: No intrahepatic or extrahepatic ductal dilatation. SPLEEN: Normal size. No focal lesions. PANCREAS: No identified cystic or solid masses. No significant calcifications. No adjacent inflammation or peripancreatic fluidcollections. Pancreatic duct not dilated. ADRENALS: Normal. KIDNEYS/URINARY TRACT: Multifocal mild renal cortical scarring of theleft kidney, likely sequela of prior infection. No identified significantcystic or solid masses. A 3 mm stone is present in superior pole of the leftkidney. No hydronephrosis or hydroureter. A 4.2 cm cyst again seen in the lower pole of the left kidney. Urinary bladder is unremarkable. GI: No dilated bowel loops. No obvious wall thickening. Normalappendix. Multiple diverticula again seen in the descending and sigmoid colon, with minimal pericolonic fat stranding adjacent to the sigmoid colon whichappears decreased from prior. PERITONEUM: No ascites or free air. RETROPERITONEUM: No mass or adenopathy. REPRODUCTIVE: Moderate prostate enlargement is stable. VASCULATURE ABDOMEN: Moderate aortoiliac atherosclerotic calcifications.No abdominal aortic aneurysm. MUSCULOSKELETAL ABDOMEN PELVIS: Mild diffuse degenerative disc diseasein the lumbar spine. No suspicious osseous lesions or acute fractures. OTHER: A moderate size fat containing umbilical hernia is unchanged. IMPRESSION: 1. Mildly displaced acute fracture of the right posterior 10th rib. 2. Significant three-vessel coronary artery atheroscleroticcalcification. No acute process in the chest. 3. Sigmoid diverticulosis with mild pericolonic fat stranding which is decreased compared to prior study, possibly sequela of priordiverticulitis, with an acute episode of mild/uncomplicated diverticulitis not completely excluded. Recommend correlation with any symptoms of lowerabdominal/pelvic pain. 4. 3 mm nonobstructing left renal stone. 5. Stable moderate prostate enlargement. 6. Stable moderate size fat containing umbilical hernia. THIS IS AN ELECTRONICALLY VERIFIED FINAL REPORT 12/08/2021 10:00 PM - Electronically signed by Trey Siegel M.D. ML: ML Report ID: [id number] Reading Location: [id number] Prema Zaman MD IM CT PROCEDURES Final Result * CT Lung Cancer Screening (09/09/2020 1:02 PM OPERATING ROOM ASSISTANT) Anatomical Region Laterality Modality Chest N/A Computed Tomogra phy 09/09/2020 1:15 PM OPERATING ROOM ASSISTANT Impressions 09/09/2020 1:19 PM OPERATING ROOM ASSISTANT LUNG RADS CATEGORY 1 WITH NO SUSPICIOUS PULMONARY NODULES. COPD. ATHEROSCLEROSIS. CONTINUED 12 MONTH LOW-DOSE CT SURVEILLANCE Electronically signed by: Shorty Carvalho M.D. Narrative 09/09/2020 1:19 PM OPERATING ROOM ASSISTANT EXAMINATION: CT LUNG CANCER SCREENING dated 09/09/2020 1:00 PM HISTORY: 74-year-old man lung cancer screening. 25 pack-year history, quit smoking July 2008 TECHNIQUE: Low-dose noncontrast spiral CT of multiplanar reconstructions FINDINGS: Comparison with multiple priors most recently dated 02/14/2019. Mask Inspector radiograph once again demonstrates tortuous aorta with atherosclerosis. Right convexity thoracic scoliosis with degenerative changes in the thoracic and lumbar spine. Lung windows: Mild centrilobular emphysema. No infiltrates fluid or failure. Right lung: No pulmonary nodules. Mediastinal windows: Normal thoracic inlet. Atherosclerosis. Subcentimeter normal size stable aortic pulmonic window lymph nodes. Severe coronary artery calcifications. Normal heart size. No pericardial fluid. Limited evaluation of abdomen unremarkable. Degeneration thoracolumbar spine Procedure Note Shorty Carvalho MD - 09/09/2020 EXAMINATION: CT LUNG CANCER SCREENING dated 09/09/2020 1:00 PM HISTORY: 74-year-old man lung cancer screening. 25 pack-year history, quit smoking July 2008 TECHNIQUE: Low-dose noncontrast spiral CT of multiplanar reconstructions FINDINGS: Comparison with multiple priors most recently dated 02/14/2019. Mask Inspector radiograph once again demonstrates tortuous aorta with atherosclerosis. Right convexity thoracic scoliosis with degenerative changes in the thoracic and lumbar spine. Lung windows: Mild centrilobular emphysema. No infiltrates fluid or failure. Right lung: No pulmonary nodules. Mediastinal windows: Normal thoracic inlet. Atherosclerosis. Subcentimeter normal size stable aortic pulmonic window lymph nodes. Severe coronary artery calcifications. Normal heart size. No pericardial fluid. Limited evaluation of abdomen unremarkable. Degeneration thoracolumbar spine IMPRESSION: LUNG RADS CATEGORY 1 WITH NO SUSPICIOUS PULMONARY NODULES. COPD. ATHEROSCLEROSIS. CONTINUED 12 MONTH LOW-DOSE CT SURVEILLANCE Electronically signed by: Shorty Carvalho M.D. Wesley Em MD IMG CT PROCEDURES Final Result * Diabetic Eye Exam (02/03/2020) us Historical Provider HEALTH MAINTENANCE Edited Result - Final * COLONOSCOPY (01/09/2018 8:46 AM CDT) Anatomical Region Laterality Modality Other Narrative Procedure Note Albert Craft MD - 01/09/2018 8:[address] [facility] Patient Name: Verna Zuniga Procedure Date: 01/09/2018 8:46 AM Date of : 1945 Admit Type: Outpatient Age: 72 Gender: Male Attending MD: Albert Craft MD Room: [facility] ENDOSCOPY CAPSULE Note Status: Finalized Patient Profile: 72 WM, screening colonoscopy, h/o poyps, no familyh/o colon cancer. Procedure: Colonoscopy Indications: Screening for colorectal malignant neoplasm,personal h/o polyps, Last colonoscopy: October 2009 Referring MD: Wesley Em MD Providers: Albert Craft MD Impression: - One 5 mm polyp in the cecum, removed with a jumbo cold forceps. Resected and retrieved. - One 8 mm polyp in the ascending colon, removedwith a cold snare. Resected and retrieved. - One 12 mm polyp in the descending colon, removedwith a cold snare. Resected and retrieved. - Two 4 to 5 mm polyps in the descending colon,removed with a jumbo cold forceps. Resected and retrieved. - Diverticulosis in the sigmoid colon. - Internal hemorrhoids. Recommendation: - Await pathology results. - Repeat colonoscopy in 3 years for surveillance. - Continue present medications. Medicines: Monitored Anesthesia Care Complications: No immediate complications. Estimated Blood Loss: Estimated blood loss: none. Procedure: Pre-Anesthesia Assessment: - Prior to the procedure, a History and Physical was performed, and patient medications and allergieswere reviewed. The patient's tolerance of previous anesthesia was also reviewed. The risks and benefitsof the procedure and the sedation options and riskswere discussed with the patient. All questions were answered, and informed consent was obtained. Prior Anticoagulants: The patient has taken no previous anticoagulant or antiplatelet agents. ASA Grade Assessment: II - A patient with mild systemicdisease. After reviewing the risks and benefits, the patientwas deemed in satisfactory condition to undergo the procedure. The benefits, risks and alternatives of theprocedure and sedation were discussed and informed consent was obtained. All questions were answered. Please referto the signed informed consent document in the medical record. The scope was passed under direct vision.The Pediatric Colonoscope PCF-H190L [id number] was introduced through the anus and advanced to the the cecum, identified by appendiceal orifice andileocecal valve. The colonoscopy was performed without difficulty. The patient tolerated the procedurewell. The quality of the bowel preparation was good. Findings: The perianal and digital rectal examinations were normal. A 5 mm polyp was found in the cecum. The polyp was sessile. The polyp was removed with a jumbo cold forceps. Resection and retrieval were complete. A 8 mm polyp was found in the ascending colon. The polyp was semi-sessile. The polyp was removed with a cold snare. Resection and retrieval were complete. A 12 mm polyp was found in the descending colon. The polyp wassessile. The polyp was removed with a cold snare. Resection and retrieval were complete. Two sessile polyps were found in the descending colon. The polypswere 4 to 5 mm in size. These polyps were removed with a jumbo cold forceps. Resection and retrieval were complete. Mild to moderatediverticulosis noted in the sigmoid colon. Internal hemorrhoids were found during retroflexion. The hemorrhoids were medium-sized. Electronically signed by Albert Craft M.D. Albert Craft MD 01/09/2018 9:27:27 AM Number of Addenda: 0 Note Initiated On: 01/09/2018 8:46 AM Procedure Code(s): --- Professional --- 40110, Colonoscopy, flexible; with removal of tumor(s), polyp(s), or other lesion(s) by snare technique 53670, 59, Colonoscopy, flexible; with biopsy, single or multiple Diagnosis Code(s): --- Professional --- Z12.11, Encounter for screening for malignant neoplasm of colon D12.0, Benign neoplasm of cecum D12.2, Benign neoplasm of ascending colon D12.4, Benign neoplasm of descending colon K64.8, Other hemorrhoids CPT copyright 2017 [employer]. All rights reserved. The codes documented in this report are preliminary and upon manager spa reviewmay be revised to meet current compliance requirements. Recognized by the [employer] for promoting quality in endoscopy Albert Craft MD ENDOSCOPY PROCEDURES Final Result * DIABETES FOOT EXAM (08/18/2016) Diabetic Foot Exam Unknown Historical Provider HEALTH MAINTENANCE Final Result * HEPATITIS C SCREENING (06/17/2016) HEP C Normal Historical Provider HEALTH MAINTENANCE Final Result from Last 3 Months or Most Recently Relevant to Health Maintenance Insurance MEDICARE [facility] MEDICARE [facility] MEDICARE [facility] MEDICARE [facility] Advance Directives For more information, please contact: [phone] Documents on File Type Date Recorded Patient Home Hospice Aide Expl anation ADVANCE DIRECTIVE 09/16/2016 12:00 AM 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 Use antibiotics, IV Fluids, and medical treatment unless specifically selected below: No intubation * Full Code Date Activated Date Inactivated Comments 12/09/2021 9:27 AM 12/10/2021 7:41 AM * Full Code Date Activated Date Inactivated Comments 05/08/2019 1:54 AM 05/09/2019 4:50 PM * Full Code Date Activated Date Inactivated Comments 01/09/2018 7:10 AM 01/09/2018 12:30 PM Care Teams Theatre Director Relationship Specialty Start Date End Date Christine Herzog MD [address] [place] [address] [place] [address] PCP - General Internal Medicine 12/02/21 Trey Pinedo MD [address] [place] [address] [address] [place] [address] Consulting Physician Neurology 05/09/19 Albert Craft MD [address] [place] [address] [place] [address] Consulting Physician Gastroenterology 03/11/22 Chintan Figueroa MD [address] [place] [address] [place] [address] Consulting Physician Hematology and Oncology 03/11/22 Jameel Bloom DPM [address] [facility] [place] [address] Consulting Physician Orthotics 03/11/22 Gadiel Genao MD [facility] [place] [id number] Surgeon Vascular Surgery 03/11/22
--- OUTSIDE RECORDS SUMMARY | 2024-06-18 18:03 | XMS_ITS | Encounter Summary ---
Author Organization [facility] Address [address] [place] [address] Phone Care Team Providers Care Warp Clamper Name Role Phone Trey Pinedo MD Unavailable [phone] Christine Herzog MD Primary Care Provide r Albert Craft MD Unavailable [phone] Chintan Figueroa MD Unavailable [phone] Jameel Bloom DPM Unavailable [phone] Gadiel Genao MD Unavailable [phone] Encounter Details Date Type Department Care Team (Late st Contact Info) Description 01/03/2024 Telephone [facility] Oncology [address] [place] [address] [address] [phone] Alla Huerta, NICAT Social History Tobacco Use Types Packs/Day Years [...] often do you attend chur ch or yazidism services? Patient declined 09/28/2022 Do you belong to any clubs o r organizations such as confucianist groups, unions, fraternal or athletic groups, or [...] place to sleep or slept in a detention (including now)? No 09/28/2022 Personal Safety Answer Date Recorded Have you ever been in or are you currently in a harmful physical or emotional relationship or is someone making you feel afraid or unsafe? Denies 09/25/2022 Sex and Gender Information Value Date Recorded Sex Assigned at Not on file 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 SCHOOL CHILD CARE ATTENDANT Gender Identity Not on file Sexual Orientation Straight 01/23/2021 10 :16 PM CDT documented as of this encounter Miscellaneous Notes * Telephone Encounter - Alla Huerta CLT - 01/03/2024 2:07 PM CDT Lmom 01/05/24 appt reminder documented in this encounter Plan of Treatment Not on file documented as of this encounter Goals Goal Patient Goal Type Associated Problems Recent Progress Patient-Stated? Author GULSHAN General Goal - Patient schedules and keeps appointments with all recommended providers ACO Care Management On track(2022 11:14 AM SCHOOL CHILD CARE ATTENDANT) Sepideh Guo RN Note: Problem: Potential for [...] on filedocumented in this encounter Care Teams Warp Clamper Relationship Specialty Start Date End Date Christine Herzog MD [address] [facility] [address] [place] [address] PCP - General Internal Medicine 12/02/21 Trey Pinedo MD [address] [place] [address] [address] [place] [address] Consulting Physician Neurology 05/09/19 Albert Craft MD [address] [place] [address] [address] [place] [address] Consulting Physician Gastroenterology 03/11/22 Chintan Figueroa MD [address] [place] [address] [address] [place] [address] Consulting Physician Hematology and Oncology 03/11/22 Jameel Bloom DPM [address] [place] [address] Consulting Physician Orthotics 03/11/22 Gadiel Genao MD [address] [place] [address] Surgeon Vascular Surgery 03/11/22 documented as of this encounter
--- OUTSIDE RECORDS SUMMARY | 2024-06-18 18:03 | XMS_ITS | Encounter Summary ---
Author Organization [facility] Address [address] [place] [address] Care Team Providers Care Lead Mason Tender Name Role Phone Trey Pinedo MD Unavailable [phone] Christine Herzog MD Primary Care Provide r Albert Craft MD Unavailable [phone] Chintan Figueroa MD Unavailable [phone] Jameel Bloom DPM Unavailable [phone] Gadiel Genao MD Unavailable [phone] Reason for Visit * Reason Comments Phlebotomy Encounter Details Date Type Department Care Team (Late st Contact Info) Description 05/16/2024 2:30 PM [facility] [place] [facility] [address] [place] [phone] Polycythemia (Primary Dx) Social History Tobacco Use [...] often do you attend chur ch or rastafarian services? Patient declined 09/28/2022 Do you belong to any clubs o r organizations such as sikhism groups, unions, fraternal or athletic groups, or [...] place to sleep or slept in a fpc (including now)? No 09/28/2022 Personal Safety Answer Date Recorded Have you ever been in or are you currently in a harmful physical or emotional relationship or is someone making you feel afraid or unsafe? Denies 09/25/2022 Sex and Gender Information Value Date Recorded Sex Assigned at Not on file 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 MARKET DEVELOPER Gender Identity Not on file Sexual Orientation Straight 01/23/2021 10 :16 PM CDT documented as of this encounter Last Filed Vital Signs Vital Sign Reading Time Taken Comments Blood Pressure 112/68 05/16/2024 4:10 PM MARKET DEVELOPER Pulse 56 05/16/2024 4:10 PM MARKET DEVELOPER Temperature - - Respiratory Rate 18 05/16/2024 4:10 PM MARKET DEVELOPER Oxygen Saturation 100% 05/16/2024 4:10 PM MARKET DEVELOPER Inhaled Oxygen Concentration - - Weight - - Height - - Body Mass Index - - documented in this encounter Nursing Notes * Loulou Caruso RN - 05/16/2024 2:30 PM CST Pt presented to infusion center today for possible phlebotomy. Vitals stable and labs reviewed. Hct48.5. Phlebotomy preformed via donormatic in left forearm. Pt tolerated well. Pressure dressing applied. Pt observed and vitals remained stable post treatment. AVS printed and reviewed with pt. Pt verbalized understanding and left infusion center in stable condition. ET DEVELOPER documented in this encounter Plan of Treatment Not on file documented as of this encounter Goals Goal Patient Goal Type Associated Problems Recent Progress Patient-Stated? Author GULSHAN General Goal - Patient schedules and keeps appointments with all recommended providers ACO Care Management On track(2022 11:14 AM MARKET DEVELOPER) Sepideh Guo RN Note: Problem: Potential for [...] as of this encounter Visit Diagnoses Diagnosis Polycythemia- Primary Polycythemia, secondary documented in this encounter Orders Nursing Count Last Ordered Date First Orde red Date ONCBCN THERAPEUTIC PHLEBOTOMY 1 05/16/2024 documented in this encounter Care Teams Lead Mason Tender Relationship Specialty Start Date End Date Christine Herzog MD [address] [facility] [address] [place] [address] PCP - General Internal Medicine 12/02/21 Trey Pinedo MD [address] [place] [address] [address] [place] [address] Consulting Physician Neurology 05/09/19 Albert Craft MD [address] [place] [address] [address] [place] [address] Consulting Physician Gastroenterology 03/11/22 Chintan Figueroa MD [address] [place] [address] [address] [place] [address] Consulting Physician Hematology and Oncology 03/11/22 Jameel Bloom DPM [address] [place] [address] Consulting Physician Orthotics 03/11/22 Gadiel Genao MD [address] [place] [address] Surgeon Vascular Surgery 03/11/22 documented as of this encounter
--- OUTSIDE RECORDS SUMMARY | 2024-06-18 18:03 | XMS_ITS | Encounter Summary ---
Author Organization [facility] Healthcare Address [address] [place] [address] Care Team Providers Care Argon Tester Name Role Phone Trey Pinedo MD Unavailable [phone] Christine Herzog MD Primary Care Provide r Albert Craft MD Unavailable [phone] Chintan Figueroa MD Unavailable [phone] Jameel Bloom DPM Unavailable [phone] Gadiel Genao MD Unavailable [phone] Encounter Details Date Type Department Care Team (Late st Contact Info) Description 01/20/[address] [facility] [place] [address] [place] [phone] Negar Dozier MA Social History Tobacco Use Types Packs/Day Years [...] often do you attend chur ch or christian services? 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 * Telephone Encounter - Negar Dozier MA - 01/20/2024 5:52 PM CDT ----- Message from Hedy Lee NP sent at 01/20/2024 3:46 PM CDT ----- Please call pt and let them know their test results are normal-negative urine culture documented in this encounter Plan of Treatment Not on file documented as of this encounter Goals Goal Patient Goal Type Associated Problems Recent Progress Patient-Stated? Author GULSHAN General Goal - Patient schedules and keeps appointments with all recommended providers ACO Care Management On track(2022 11:14 AM WILDLIFE MANAGEMENT PROFESSOR) Sepideh Guo, SEU Note: Problem: Potential for medical complications and [...] on filedocumented in this encounter Care Teams Argon Tester Relationship Specialty Start Date End Date Christine Herzog MD [address] [facility] [address] [place] [address] PCP - General Internal Medicine 12/02/21 Trey Pinedo MD [address] [place] [address] [address] [place] [address] Consulting Physician Neurology 05/09/19 Albert Craft MD [address] [place] [address] [address] [place] [address] Consulting Physician Gastroenterology 03/11/22 Chintan Figueroa MD [address] [place] [address] [address] [place] [address] Consulting Physician Hematology and Oncology 03/11/22 Jameel Bloom DPM [address] [place] [address] Consulting Physician Orthotics 03/11/22 Gadiel Genao MD [address] [place] [address] Surgeon Vascular Surgery 03/11/22 documented as of this encounter
--- OUTSIDE RECORDS SUMMARY | 2024-06-18 18:03 | XMS_ITS | Encounter Summary ---
Author Organization [facility] Healthcare Address [address] [place] [address] Care Team Providers Care Container Washer Name Role Phone Trey Pinedo MD Unavailable [phone] Christine Herzog MD Primary Care Provide r Albert Craft MD Unavailable [phone] Chintan Figueroa MD Unavailable [phone] Jameel Bloom DPM Unavailable [phone] Gadiel Genao MD Unavailable [phone] Encounter Details Date Type Department Care Team (Late st Contact Info) Description 12/27/2023 Telephone [facility] [address] [facility] [address] [place] [phone] Radha Arora Social History Tobacco Use Types Packs/Day Years [...] any clubs o r organizations such as orthodox groups, unions, fraternal or athletic groups, or [...] on file 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 PICKER OPERATOR Gender Identity Not on file Sexual Orientation Straight 01/23/2021 10 :16 PM CDT documented as of this encounter Miscellaneous Notes * Telephone Encounter - Radha Arora - 12/27/2023 3:32 PM CDT Called PT to confirm appt change for 01/04 (possible phlebotomy added after clinic). LM with number to call back. documented in this encounter Plan of Treatment Not on file documented as of this encounter Goals Goal Patient Goal Type Associated Problems Recent Progress Patient-Stated? Author GULSHAN General Goal - Patient schedules and keeps appointments with all recommended providers ACO Care Management On track(2022 11:14 AM PICKER OPERATOR) Sepideh Guo RN Note: Problem: Potential for [...] on filedocumented in this encounter Care Teams Container Washer Relationship Specialty Start Date End Date Christine Herzog MD [address] [address] [place] [address] PCP - General Internal Medicine 12/02/21 Trey Pinedo MD [address] [place] [address] [address] [place] [address] Consulting Physician Neurology 05/09/19 Albert Craft MD [address] [place] [address] [address] [place] [address] Consulting Physician Gastroenterology 03/11/22 Chintan Figueroa MD [address] [place] [address] [address] [place] [address] Consulting Physician Hematology and Oncology 03/11/22 Jameel Bloom DPM [address] [place] [address] Consulting Physician Orthotics 03/11/22 Gadiel Genao MD [address] [place] [address] Surgeon Vascular Surgery 03/11/22 documented as of this encounter
--- OUTSIDE RECORDS SUMMARY | 2024-06-18 18:03 | XMS_ITS | Encounter Summary ---
Author Organization [facility] Address [address] [place] [address] Phone Care Team Providers Care Health Policy Analyst Name Role Phone Trey Pinedo MD Unavailable [phone] Christine Herzog MD Primary Care Provide r Albert Craft MD Unavailable [phone] Chintan Figueroa MD Unavailable [phone] Jameel Bloom DPM Unavailable [phone] Gadiel Genao MD Unavailable Encounter Details Date Type Department Care Team (Late st Contact Info) Description 12/27/2023 Orders Only [facility] Physicians [facility] Oncology [address] [place] [address] Office [facility] [address] [phone] Chintan Figueroa MD [address] [place] [address] [id number] Polycythemia (Primary Dx) Social History Tobacco Use [...] often do you attend chur ch or latter-day services? Patient declined 09/28/2022 Do you belong to any clubs o r organizations such as anabaptism groups, unions, fraternal or athletic groups, or [...] place to sleep or slept in a jail (including now)? No 09/28/2022 Personal Safety Answer Date Recorded Have you ever been in or are you currently in a harmful physical or emotional relationship or is someone making you feel afraid or unsafe? Denies 09/25/2022 Sex and Gender Information Value Date Recorded Sex Assigned at Not on file 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 RN SOCIAL SERVICES Gender Identity Not on file Sexual Orientation Straight 01/23/2021 10 :16 PM CDT documented as of this encounter Plan of Treatment Not on file documented as of this encounter Goals Goal Patient Goal Type Associated Problems Recent Progress Patient-Stated? Author GULSHAN General Goal - Patient schedules and keeps appointments with all recommended providers ACO Care Management On track(2022 11:14 AM RN SOCIAL SERVICES) Sepideh Guo RN Note: Problem: Potential for [...] Ordered Date Fi rst Ordered Date ONCBCN THERAPEUTIC PHLEBOTOM Y APPOINTMENT REQUEST 1 01/05/2024 documented in this encounter Care Teams Health Policy Analyst Relationship Specialty Start Date End Date Christine Herzog MD [address] [place] [address] [place] [address] PCP - General Internal Medicine 12/02/21 Trey Pinedo MD [address] [place] [address] [address] [place] [address] Consulting Physician Neurology 05/09/19 Albert Craft MD [address] [place] [address] [address] [place] [address] Consulting Physician Gastroenterology 03/11/22 Chintan Figueroa MD [address] [place] [address] [address] [place] [address] Consulting Physician Hematology and Oncology 03/11/22 Jameel Bloom DPM [address] [place] [address] Consulting Physician Orthotics 03/11/22 Gadiel Genao MD [address] [place] [address] Surgeon Vascular Surgery 03/11/22 documented as of this encounter
--- OUTSIDE RECORDS SUMMARY | 2024-06-18 18:03 | XMS_ITS | Encounter Summary ---
Author Organization [facility] Healthcare Address [address] [place] [address] Care Team Providers Care Clam Shovel Operator Name Role Phone Trey Pinedo MD Unavailable [phone] Christine Herzog MD Primary Care Provide r Albert Craft MD Unavailable [phone] Chintan Figueroa MD Unavailable [phone] Jameel Bloom DPM Unavailable [phone] Gadiel Genao MD Unavailable [phone] Encounter Details Date Type Department Care Team (Latest Contact Info) Description 01/18/2024 5:39 PM CDT - 01/18/2024 11:59 PM CDT Hospital Encounter [address] [address] Urinary incontinence, unspecified type Discharge Disposition: Discharge to home or self care Social History Tobacco Use Types Packs/Day Years [...] often do you attend chur ch or religion services? 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 Gender Identity Not on file Sexual Orientation Straight 01/23/2021 10 :16 PM CDT documented as of this encounter Medications at Time of Discharge amLODIPine (NORVASC) 5 mg tabletIndications: Coronary artery disease involving [place] coronary artery of [place] heart without angina pectoris,Essential hypertension,Parox ysmal atrial fibrillation (CMS/HCC) (HCC),Pulmonary hypertension (HCC) TAKE 1 TABLET BY MOUTH DAILY 90 tablet 09/25/2023 aspirin 81 mg tablet Take one by mouth one time per day 0 0 06/27/2008 atorvastatin (LIPITOR) 40 mg tablet TAKE 1 TABLET BY MOUTH DAILY 90 tablet 1 12/15/2022 escitalopram (LEXAPRO) 10 mg tablet Take 1 tablet (10 mg total) by mouth daily 90 tablet 3 01/05/2024 lisinopriL (PRINIVIL,ZESTRIL) 20 mg tablet TAKE 1 TABLET BY MOUTH DAILY 90 tablet 3 02/06/2023 magnesium oxide (MAG-OX) 400 mg (241.3 mg elemental magnesium) tablet TAKE 1 TABLET(400 MG) BY MOUTH TWICE DAILY 180 tablet 1 07/17/2023 rivaroxaban (XARELTO) 20 mg tablet Take 1 tablet (20 mg total) by mouth daily with dinner finasteride (PROSCAR) 5 mg tablet TAKE 1 TABLET BY MOUTH DAILY 90 tablet 3 10/12/2023 memantine (NAMENDA) 5 mg tablet Take 1 tablet (5 mg total) by mouth 2 (two) times a day 60 tablet 5 11/13/2023 4 omeprazole (PriLOSEC) 20 mg capsuleIndications :Decreased appetite,Stomach discomfort Take 1 capsule (20 mg total) by mouth daily 90 capsule 12/14/2023 4 documented as of this encounter Discharge Disposition Disposition Code Departure Means Destination Discharge to home or self care documented in this encounter Miscellaneous Notes * Result Encounter Note - Negar Dozier MA - 01/18/2024 11:59 PM CDT Left message for patient to call back if they have any question to discuss their urine culture results that they viewed on [employer]. documented in this encounter Plan of Treatment Not on file documented as of this encounter Goals Goal Patient Goal Type Associated Problems Recent Progress Patient-Stated? Author GULSHAN General Goal - Patient schedules and keeps appointments with all recommended providers ACO Care Management On track(2022 11:14 AM SOLAR ENERGY CONSULTANT AND DESIGNER) Sepideh Guo RN Note: Problem: Potential for [...] Procedure Name Priority Date/Time Associated Diagnosis Comments URINE CULTURE Routine 01/18/2024 5:39 PM CDT Urinary incontinence, unspecified type documented in this encounter Results * Urine culture Urine, clean voided (01/18/2024 5:39 PM CDT) Report Final Report: Less than 100,000 colonies/mL (clinically insignificant growth based on current clinical standards) Comment:Testing performed by : [facility], [address] [facility] [place]., [address] Organism (CLINICALLY INSIGNIFICANT GROWTH CERNER CH Urine, clean voided 01/18/2024 5:39 PM CDT 01/19/2024 9:39 AM CDT Narrative RUBENS GANT - 01/20/2024 2:27 PM CDT Testing performed by [facility] Microbiology Laboratory ([phone]) Loida Sánchez MAGAZINE DESIGNER LAB MICROBIOLOGY - GENERAL ORDER KATHLEEN Final Result [facility] [address] [address] Department [place] [address] documented in this encounter Visit Diagnoses Diagnosis Urinary incontinence, unspecified type documented in this encounter Care Teams Clam Shovel Operator Relationship Specialty Start Date End Date Christine Herzog MD [address] [facility] [address] [place] [address] PCP - General Internal Medicine 12/02/21 Trey Pinedo MD [address] [place] [address] [address] [place] [address] Consulting Physician Neurology 05/09/19 Albert Craft MD [address] [place] [address] [address] [place] [address] Consulting Physician Gastroenterology 03/11/22 Chintan Figueroa MD [address] [place] [address] [place] [address] Consulting Physician Hematology and Oncology 03/11/22 Jameel Bloom DPM [address] [place] [address] Consulting Physician Orthotics 03/11/22 Gadiel Genao MD [address] [place] [address] Surgeon Vascular Surgery 03/11/22 documented as of this encounter
--- OUTSIDE RECORDS SUMMARY | 2024-06-18 18:03 | XMS_ITS | Encounter Summary ---
Author Organization [facility] Healthcare Address [address] [place] [address] Care Team Providers Care Deputy Chief Counsel Name Role Phone Trey Pinedo MD Unavailable [phone] Crhistine Herzog MD Primary Care Provide r Albert Craft MD Unavailable [phone] Chintan Figueroa MD Unavailable [phone] Jameel Bloom DPM Unavailable [phone] Gadiel Genao MD Unavailable [phone] Reason for Visit * Reason Comments Hypertension kidney function Encounter Details Date Type Department Care Team (Late st Contact Info) Description 12/14/2023 2:15 PM CDT Office Visit [facility] Medical Group Primary Care at [address] [place] [phone] Christine Herzog MD [address] [place] [address] [address] [place] [address] Essential hypertension (Primary Dx); Type 2 diabetes mellitus with hyperlipidemia (HCC); Stage 3 chronic kidney disease, unspecified whether stage 3a or 3b CKD (HCC); Decreased appetite; Stomach discomfort Social History Tobacco Use Types Packs/Day Years [...] 09/28/2022 How often do you attend chur or scientology services? Patient declined 09/28/2022 Do you belong to any clubs o r organizations such as yarsanism groups, unions, fraternal or athletic groups, or [...] place to sleep or slept in a snf (including now)? No 09/28/2022 Personal Safety Answer Date Recorded Have you ever been in or are you currently in a harmful physical or emotional relationship or is someone making you feel afraid or unsafe? 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 Gender Identity Not on file Sexual Orientation Straight 01/23/2021 10 :16 PM CDT documented as of this encounter Last Filed Vital Signs Vital Sign Reading Time Taken Comments Blood Pressure 108/50 12/14/2023 2:27 PM CDT Pulse 62 12/14/2023 2:27 PM CDT Temperature 36.4 ??C (97.6 ??F) 12/14/2023 2:27 PM CD T Respiratory Rate 20 12/14/2023 2:27 PM CDT Oxygen Saturation 96% 12/14/2023 2:27 PM CDT Inhaled Oxygen Concentration - - Weight 85.7 kg (189 lb) 12/14/2023 2:27 PM CDT Height 170 cm (5' 6.93 ) 12/14/2023 2:27 PM CDT Body Mass Index 29.66 12/14/2023 2:27 PM CDT documented in this encounter Patient Instructions * Patient Instructions* Christine Herzog MD - 12/14/2023 2:15 PM CDT My certified medical technician and I are thankful you have trusted us with your care, and hope that you received EXCELLENT care today! Please do not hesitate to call if you have any questions or concerns. You may receive a phone call or text asking about your care today. We would love to hear your input and again, hope your visit was as EXCELLENT as possible, even if you were not feeling your best! -Dr. Herzog documented in this encounter Ordered Prescriptions Prescription Sig Dispense Quantity Refills Last Filled Start Date End Date omeprazole (PriLOSEC) 20 mg capsuleIndications :Decreased appetite,Stomach discomfort Take 1 capsule (20 mg total) by mouth daily 90 capsule 12/14/2023 documented in this encounter Progress Notes * Christine Herzog MD - 12/14/2023 2:15 PM CDT Images from the original note were not included. Subjective/Objective Patient ID: Villa Zuniga is a 78 y.o. male. Chief Complaint Hypertension and kidney function Hypertension Pertinent negatives include no chest pain or shortness of breath. 78 y.o.male coming in for follow up on htn dm and ckd3. He denies chest pain palpitations sob lightheadedness dizziness hypoglycemic episodes or any other symptoms. He is tolerating his medications well. Reviewed labs and everything is stable regarding kidney function. The protein in the urine improved The son mentioned that he is concerned about possible heart burn. He states that he mentioned it seems like the food would come back up. He has not vomited. His son gave him pepcid and the next day he would not have any problems. He wont eat the food sometimes. The son mentioned that he recently had a ct scan of his abdomen for a fall at [facility]. Will try to get those records. Review of Systems Constitutional: Negative for chills and fever. Respiratory: Negative for cough and shortness of breath. Cardiovascular: Negative for chest pain. Gastrointestinal: Negative for abdominal pain. Vitals: 12/14/23 1427 BP: 108/50 BP Location: Left arm Patient Position: Sitting Pulse: 62 Resp: 20 Temp: 36.4 ??C (97.6 ??F) SpO2: 96% Weight: 85.7 kg (189 lb) Height: 170 cm (5' 6.93 ) Lab on 12/14/2023 Component Date Value Albumin Ur 12/14/2023 135.9 Creatinine Ur 12/14/2023 247.3 Albumin Creatinine Ratio* 12/14/2023 55 (H) Sodium 12/14/2023 143 Potassium, pl 12/14/2023 4.5 Chloride 12/14/2023 107 CO2 12/14/2023 24 Anion gap 12/14/2023 12 BUN 12/14/2023 25 Creatinine 12/14/2023 1.44 (H) Glucose 12/14/2023 106 Calcium 12/14/2023 9.0 Bilirubin, total 12/14/2023 0.6 Protein, pl 12/14/2023 7.2 Albumin 12/14/2023 4.3 Alk phos 12/14/2023 108 ALT 12/14/2023 15 AST 12/14/2023 15 Hgb A1C 12/14/2023 6.7 (H) Estimated Average Glucose 12/14/2023 146 eGFR 12/14/2023 50 (L) Physical Exam Constitutional: General: He is not in acute distress. Appearance: He is well-developed. Neck: Thyroid: No thyromegaly. Cardiovascular: Rate and Rhythm: Normal rate and regular rhythm. Heart sounds: Normal heart sounds. No murmur (no edema) heard. Pulmonary: Effort: Pulmonary effort is normal. Breath sounds: Normal breath sounds. No wheezing. Musculoskeletal: Cervical back: Normal range of motion and neck supple. Lymphadenopathy: Cervical: No cervical adenopathy (no bruits). Assessment/Plan Diagnoses and all orders for this visit: Essential hypertension (Primary) Assessment & Plan: Bp in the office today BP Readings from Last 1 Encounters: 12/14/23 108/50 Continue current regimen of metoprolol 50mg daily Recommend DASH diet, heart-healthy lifestyle, exercise. Discussed the risks of hypertension. F/u in 3 months Type 2 diabetes mellitus with hyperlipidemia (HCC) Assessment & Plan: The patient was counseled on a heart-healthy, [...] reviewed F/u in 3 months at annual Stage 3 chronic kidney disease, unspecified whether stage 3a or 3b CKD (HCC) Assessment & Plan: Stable / clinically quiescent. Will continue to monitor. Albumin cr urine ratio improved to 55 Encourage hydration Repeat cmp prior to annual Decreased appetite Assessment & Plan: New concern Possibly from GERD Will send omperazole and a referral to GI for further evaluation and recommendation Will try to get recent ct scan from [place] Orders: - omeprazole (PriLOSEC) 20 mg capsule; Take 1 capsule (20 mg total) by mouth daily Stomach discomfort Assessment & Plan: Possibly from the chronic gerd We will send omeprazole 20 mg daily Referral to GI given change in appetite Follow-up as needed Orders: - omeprazole (PriLOSEC) 20 mg capsule; Take 1 capsule (20 mg total) by mouth daily Side effects, risks, interactions reviewed with patient. Indications for testing discussed. Any further problems to contact us. He was told what to look out for and verbalized understanding. The patient was given the opportunity to have all questions answered today and was in agreement with the plan of care. Christine Herzog MD documented in this encounter Miscellaneous Notes * Assessment & Plan Note - Christine Herzog MD - 12/14/2023 4:18 PM CDT Associated Problem(s): Decreased appetite New concern Possibly from GERD Will send omperazole and a referral to GI for further evaluation and recommendation Will try to get recent ct scan from [place] * Assessment & Plan Note - Christine Herzog MD - 12/14/2023 4:16 PM CDT Associated Problem(s): Stomach discomfort Possibly from the chronic gerd We will send omeprazole 20 mg daily Referral to GI given change in appetite Follow-up as needed * Assessment & Plan Note - Christine Herzog MD - 12/14/2023 2:37 PM CDT Associated Problem(s): Chronic kidney disease (CKD), stage III (moderate) (HCC) Stable / clinically quiescent. Will continue to monitor. Albumin cr urine ratio improved to 55 Encourage hydration Repeat cmp prior to annual * Assessment & Plan Note - Christine Herzog MD - 12/14/2023 2:36 PM CDT Associated Problem(s): Type 2 diabetes mellitus with hyperlipidemia (HCC) The patient was counseled on a heart-healthy, [...] reviewed F/u in 3 months at annual * Assessment & Plan Note - Christine Herzog MD - 12/14/2023 2:36 PM CDT Associated Problem(s): Essential hypertension Bp in the office today BP Readings from Last 1 Encounters: 12/14/23 108/50 Continue current regimen of metoprolol 50mg daily Recommend DASH diet, heart-healthy lifestyle, exercise. Discussed the risks of hypertension. F/u in 3 months documented in this encounter Plan of Treatment Not on file documented as of this encounter Goals Goal Patient Goal Type Associated Problems Recent Progress Patient-Stated? Author GULSHAN General Goal - Patient schedules and keeps appointments with all recommended providers ACO Care Management On track(2022 11:14 AM ONSITE CASE MANAGER) Sepideh Guo, SUE Note: Problem: Potential for [...] as of this encounter Visit Diagnoses Diagnosis Essential hypertension- Primary Unspecified essential hypertension Type 2 diabetes mellitus with hyperlipidemia (HCC) Stage 3 chronic kidney disease, unspecified whether stage 3a or 3b CKD (HCC) Decreased appetite Anorexia Stomach discomfort Dyspepsia and other specified disorders of function of stomach documented in this encounter Discontinued Medications Medication Sig Discontinue Reason Start Date End Da te apixaban (Eliquis) 5 mg tablet Take 1 tablet (5 mg total) by mouth 2 (two) times a day Alternate therapy 05/23/2023 12/14/2023 documented as of this encounter Historical Medications * This list may reflect changes made after this encounter. rivaroxaban (XARELTO) 20 mg tablet Take 1 tablet (20 mg total) by mouth daily with dinner added in this encounter Care Teams Deputy Chief Counsel Relationship Specialty Start Date End Date Christine Herzog MD [address] [place] [address] [place] [address] PCP - General Internal Medicine 12/02/21 Trey Pinedo MD [address] [place] [address] [address] [place] [address] Consulting Physician Neurology 05/09/19 Albert Craft MD [address] [facility] [address] [place] [address] Consulting Physician Gastroenterology 03/11/22 Chintan Figueroa MD [address] [facility] [address] [place] [address] Consulting Physician Hematology and Oncology 03/11/22 Jameel Bloom DPM [address] [place] [address] Consulting Physician Orthotics 03/11/22 Gadiel Genao MD [address] [place] [address] Surgeon Vascular Surgery 03/11/22 documented as of this encounter
--- OUTSIDE RECORDS SUMMARY | 2024-06-18 18:03 | XMS_ITS | Encounter Summary ---
Author Organization [facility] Healthcare Address [address] [place] [address] Care Team Providers Care Car Washer Name Role Phone Trey Pinedo MD Unavailable [phone] Christine Herzog MD Primary Care Provide r Albert Craft MD Unavailable [phone] Chintan Figueroa MD Unavailable [phone] Jameel Bloom DPM Unavailable [phone] Gadiel Genao MD Unavailable [phone] Reason for Visit * Reason Comments Phlebotomy Encounter Details Date Type Department Care Team (Late st Contact Info) Description 01/05/2024 10:30 AM CDT [facility] [address] [place] [phone] Polycythemia (Primary Dx) Social History Tobacco Use [...] often do you attend chur ch or baptism services? 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 Figueroa for a phlebotomy. The pts labs were done prior and reviewed, hct is 49.9. Phlebotomy was performed in the left ac as charted, it was tolerated well. Pressure dressing was applied and the pt stayed for observation. He was then discharged and leftin stable condition. documented in this encounter Plan of Treatment Not on file documented as of this encounter Goals Goal Patient Goal Type Associated Problems Recent Progress Patient-Stated? Author GULSHAN General Goal - Patient schedules and keeps appointments with all recommended providers ACO Care Management On track(2022 11:14 AM FORESTRY AID) Sepideh Guo, SUE Note: Problem: Potential for [...] Orde red Date ONCBCN THERAPEUTIC PHLEBOTOMY 1 01/05/2024 Appointment Requests Count Last Ordered Date Fi rst Ordered Date ONCBCN THERAPEUTIC PHLEBOTOM Y APPOINTMENT REQUEST 1 01/05/2024 documented in this encounter Care Teams Car Washer Relationship Specialty Start Date End Date Christine Herzog MD [address] [facility] [address] [place] [address] PCP - General Internal Medicine 12/02/21 Trey Pinedo MD [address] [place] [address] [address] [place] [address] Consulting Physician Neurology 05/09/19 Albert Craft MD [address] [place] [address] [address] [place] [address] Consulting Physician Gastroenterology 03/11/22 Chintan Figueroa MD [address] [place] [address] [address] [place] [address] Consulting Physician Hematology and Oncology 03/11/22 Jameel Bloom DPM [address] [place] [address] Consulting Physician Orthotics 03/11/22 Gadiel Genao MD [address] [place] [address] Surgeon Vascular Surgery 03/11/22 documented as of this encounter
--- OUTSIDE RECORDS SUMMARY | 2024-06-18 18:03 | XMS_ITS | Encounter Summary ---
Author Organization [facility] Healthcare Address [address] [place] [address] Care Team Providers Care Analytical Laboratory Technician Name Role Phone Trye Pinedo MD Unavailable [phone] Christine Herzog MD Primary Care Provide r Albert Craft MD Unavailable [phone] Chintan Figueroa MD Unavailable [phone] Jameel Bloom DPM Unavailable [phone] Gadiel Genao MD Unavailable [phone] Encounter Details Date Type Department Care Team (Late st Contact Info) Description 01/05/2024 9:30 AM CDT Lab [address] [address] Polycythemia Social History Tobacco Use Types Packs/Day Years [...] often do you attend chur ch or jewish services? Patient declined 09/28/2022 Do you belong to any clubs o r organizations such as zoroastrian groups, unions, fraternal or athletic groups, or [...] place to sleep or slept in a long-term (including now)? No 09/28/2022 Personal Safety Answer Date Recorded Have you ever been in or are you currently in a harmful physical or emotional relationship or is someone making you feel afraid or unsafe? 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 Author GULSHAN General Goal - Patient schedules and keeps appointments with all recommended providers ACO Care Management On track(2022 11:14 AM WALLPAPER INSPECTOR) No Sepideh Hi, SUE Note: Problem: Potential for medical complications [...] Date/Time Associated Diagnosis Comments DIFFERENTIAL AUTO Routine 01/05/2024 9:5 0 AM CDT Polycythemia CBC WITH AUTO DIFFERENTIAL Routine 01/05/2024 9:50 AM CDT Polycythemia documented in this encounter Results * Differential, auto (01/05/2024 9:50 AM CDT) Neutrophil abs 5.1 1.5 - 6.5 K/cumm Comment:Testing performed by : [facility] [address], Medical Office [address], [place] [address] Imm gran abs 0.0 0.0 - 0.1 K/cumm [facility] ([place]) Comment:Testing performed by : [facility] [address], Medical Office [facility] [address], [place] [address] Lymphocyte abs 1.3 0.8 - 3.3 K/cumm [facility] ([place]) Comment:Testing performed by : [facility] [address], Medical Office [facility] [address], [place] [address] Monocyte abs 0.7 0.2 - 0.8 K/cumm [facility] ([place]) Comment:Testing performed by : [facility] [address], Medical Office [facility] [address], [place] [address] Eosinophil abs 0.2 0.0 - 0.5 K/cumm [facility] ([place]) Comment:Testing performed by : [facility] [address], Medical Office [facility] [address], [place] [address] Basophil abs 0.1 0.0 - 0.1 K/cumm [facility] ([place]) Comment:Testing performed by : [facility] [address], Medical Office [facility] [address], [place] [address] Neutrophil pct 68.9 % [facility] ([place]) Comment: Interpretive Data Percent cell count reference ranges are not reported, since discordance with absolute values may lead to misinterpretation of CBC data. Current Interpretive Data was last revised on 2022. Testing performed by: [facility] [address], Medical Office [facility] [address], [place] [address] Imm gran pct 0.1 % [facility] ([place]) Comment: Interpretive Data Percent cell count reference ranges are not reported, since discordance with absolute values may lead to misinterpretation of CBC data. Current Interpretive Data was last revised on 2022. Testing performed by: [facility] [address], Medical Office [facility] [address], [place] [address] Lymphocyte pct 17.5 % [facility] ([place]) Comment: Interpretive Data Percent cell count reference ranges are not reported, since discordance with absolute values may lead to misinterpretation of CBC data. Current Interpretive Data was last revised on 2022. Testing performed by: [facility] [address], Medical Office [facility] [address], [place] [address] Monocyte pct 10.1 % [facility] ([place]) Comment: Interpretive Data Percent cell count reference ranges are not reported, since discordance with absolute values may lead to misinterpretation of CBC data. Current Interpretive Data was last revised on 2022. Testing performed by: [facility] [address], Medical Office [facility] [address], [place] [address] Eosinophil pct 2.0 % [facility] ([place]) Comment: Interpretive Data Percent cell count reference ranges are not reported, since discordance with absolute values may lead to misinterpretation of CBC data. Current Interpretive Data was last revised on 2022. Testing performed by: [facility] [address], Medical Office [facility] [address], [place] [address] Basophil pct 1.4 % [facility] ([place]) Comment: Interpretive Data Percent cell count reference ranges are not reported, since discordance with absolute values may lead to misinterpretation of CBC data. Current Interpretive Data was last revised on 2022. Testing performed by: [facility] [address], Medical Office [facility] [address], [place] [address] Blood 01/05/2024 9:50 AM CDT 01/05/2024 9:51 AM CDT us Chintan Figueroa MD LAB BLOOD ORDERABLES Final Re sult [facility] ([place]) 1 [facility] [place] [address] * (ABNORMAL) CBC with auto differential (01/05/2024 9:50 AM CDT) WBC 7.4 3.8 - 9.9 K/cumm Comment:Testing performed by : [facility] [address], Medical Office [facility] [address], [place] [address] Hgb 15.3 13.0 - 17.5 g/dL [facility] ([place]) Comment:Testing performed by : [facility] [address], Medical Office [facility] [address], [place] [address] Hct 49.9 38.9 - 50.3 % [facility] ([place]) Comment:Testing performed by : [facility] [address], Medical Office [address], [place] [address] Plt 202 150 - 400 K/cumm [facility] ([place]) Comment:Testing performed by : [facility] [address], Medical Office [facility] [address], [place] [address] MPV 9.9 9.1 - 12.3 fL [facility] ([place]) Comment:Testing performed by : [facility] [address], Medical Office [facility] [address], [place] [address] RBC 6.64(H) 4.30 - 5.80 M/cumm [facility] ([place]) Comment:Testing performed by : [facility] [address], Medical Office [facility] [address], [place] [address] MCV 75.2(L) 81.3 - 96.4 fL [facility] ([place]) Comment:Testing performed by : [facility] [address], Medical Office [facility] [address], [place] [address] MCH 23.0(L) 27.1 - 33.3 pg [facility] ([place]) Comment:Testing performed by : [facility] [address], Medical Office [facility] [address], [place] [address] MCHC 30.7(L) 32.3 - 35.7 g/dL [facility] ([place]) Comment:Testing performed by : [facility] [address], Medical Office [facility] [address], [place] [address] RDW CV 19.5(H) 11.1 - 14.9 % [facility] ([place]) Comment:Testing performed by : [facility] [address], Medical Office [facility] [address], [place] [address] RDW SD 49.8(H) 35.7 - 48.1 fL [facility] ([place]) Comment:Testing performed by : [facility] [address], Medical Office [facility] [address], [place] [address] NRBC abs Not Measured 0.00 - 0.01 K/cumm [facility] ([place]) Comment:Testing performed by : [facility] [address] [facility] , Medical Office [facility] [address], [place] [address] Blood 01/05/2024 9:50 AM CDT 01/05/2024 9:51 AM CDT Chintan Figueroa MD LAB BLOOD ORDERABLES Final Re sult [facility] ([place]) 1 [facility] Department of [place] [address] documented in this encounter Visit Diagnoses Diagnosis Polycythemia Polycythemia, secondary documented in this encounter Care Teams Analytical Laboratory Technician Relationship Specialty Start Date End Date Christine Herzog MD 2 [facility] [address] [place] [address] PCP - General Internal Medicine 12/02/21 Trey Pinedo MD [address] [place] [address] [address] [place] [address] Consulting Physician Neurology 05/09/19 Albert Craft MD 2 [facility] [address] [place] [address] Consulting Physician Gastroenterology 03/11/22 Chintan Figueroa MD 2 [facility] [address] [place] [address] Consulting Physician Hematology and Oncology 03/11/22 Jameel Bloom DPM [address] [place] [address] Consulting Physician Orthotics 03/11/22 Gadiel Genao MD [facility] [place] [address] Surgeon Vascular Surgery 03/11/22 documented as of this encounter
--- OUTSIDE RECORDS SUMMARY | 2024-06-18 18:03 | XMS_ITS | Encounter Summary ---
Author Organization [facility] Healthcare Address [address] [place] [address] Care Team Providers Care City Collector Name Role Phone Trey Pinedo MD Unavailable [phone] Christine Herzog MD Primary Care Provide r Albert Craft MD Unavailable [phone] Chintan Figueroa MD Unavailable [phone] Jameel Bloom DPM Unavailable [phone] Gadiel Genao MD Unavailable [phone] Encounter Details Date Type Department Care Team (Late st Contact Info) Description 03/21/2024 2:15 PM CDT Lab [address] [address] Polycythemia Social History Tobacco Use Types Packs/Day [...] any clubs o r organizations such as gnosticist groups, unions, fraternal or athletic groups, or [...] on file 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 Gender Identity Not on file Sexual Orientation Straight 01/23/2021 10 :16 PM CDT documented as of this encounter Last Filed Vital Signs Vital Sign Reading Time Taken Comments Blood Pressure 139/55 03/21/2024 2:30 PM CDT Pulse 50 03/21/2024 2:30 PM CDT Temperature 36.3 ??C (97.4 ??F) 03/21/2024 2:30 PM C DT Respiratory Rate 20 03/21/2024 2:30 PM CDT Oxygen Saturation 96% 03/21/2024 2:30 PM CDT Inhaled Oxygen Concentration - - Weight 90.4 kg (199 lb 3.2 oz) 03/21/2024 2:30 P M CDT Height - - Body Mass Index 31.2 01/18/2024 5:39 PM CDT documented in this encounter Plan of Treatment Not on file documented as of this encounter Goals Goal Patient Goal Type Associated Problems Recent Progress Patient-Stated? 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) Sepideh Guo, SUE Note: Problem: Potential for [...] Date/Time Associated Diagnosis Comments DIFFERENTIAL AUTO Routine 03/21/2024 2:3 5 PM CDT Polycythemia CBC WITH AUTO DIFFERENTIAL Routine 03/21/2024 2:35 PM CDT Polycythemia documented in this encounter Results * Differential, auto (03/21/2024 2:35 PM CDT) Neutrophil abs 4.3 1.5 - 6.5 K/cumm Comment:Testing performed by : [facility] [address], Medical Office [facility] [address], [place] [address] Imm gran abs 0.0 0.0 - 0.1 K/cumm [facility] ([place]) Comment:Testing performed by : [facility] [address], Medical Office [facility] [address], [place] [address] Lymphocyte abs 1.2 0.8 - 3.3 K/cumm [facility] ([place]) Comment:Testing performed by : [facility] [address], Medical Office [facility] [address], [place] [address] Monocyte abs 0.7 0.2 - 0.8 K/cumm [facility] ([place]) Comment:Testing performed by : [facility] [address], Medical Office [facility] [address], [place] [address] Eosinophil abs 0.2 0.0 - 0.5 K/cumm [facility] ([place]) Comment:Testing performed by : [facility] [address], Medical Office [facility] [address], [place] [address] Basophil abs 0.1 0.0 - 0.1 K/cumm [facility] ([place]) Comment:Testing performed by : [facility] [address], Medical Office [facility] [address], [place] [address] Neutrophil pct 65.4 % [facility] ([place]) Comment: Interpretive Data Percent cell count reference ranges are not reported, since discordance with absolute values may lead to misinterpretation of CBC data. Current Interpretive Data was last revised on 2022. Testing performed by: [facility] [address], Medical Office [address], [place] [address] Imm gran pct 0.3 % [facility] ([place]) Comment: Interpretive Data Percent cell count reference ranges are not reported, since discordance with absolute values may lead to misinterpretation of CBC data. Current Interpretive Data was last revised on 2022. Testing performed by: [facility] [address], Medical Office dg [address], [place] [address] Lymphocyte pct 19.0 % [facility] ([place]) Comment: Interpretive Data Percent cell count reference ranges are not reported, since discordance with absolute values may lead to misinterpretation of CBC data. Current Interpretive Data was last revised on 2022. Testing performed by: [facility] [address], Medical Office [address], [place] [address] Monocyte pct 11.1 % [facility] ([place]) Comment: Interpretive Data Percent cell count reference ranges are not reported, since discordance with absolute values may lead to misinterpretation of CBC data. Current Interpretive Data was last revised on 2022. Testing performed by: [facility] [address], Medical Office [facility] [address], [place] [address] Eosinophil pct 2.8 % [facility] ([place]) Comment: Interpretive Data Percent cell count reference ranges are not reported, since discordance with absolute values may lead to misinterpretation of CBC data. Current Interpretive Data was last revised on 2022. Testing performed by: [facility] [address], Medical Office [facility] [address], [place] [address] Basophil pct 1.4 % [facility] ([place]) Comment: Interpretive Data Percent cell count reference ranges are not reported, since discordance with absolute values may lead to misinterpretation of CBC data. Current Interpretive Data was last revised on 2022. Testing performed by: [facility] [address], Medical Office [address], [place] [address] Blood 03/21/2024 2:35 PM CDT 03/21/2024 2:36 PM CDT Bronwyn Gutierrezblaynesosa SUMMER CAMP COUNSELOR LAB BLOOD ORDERABLES Final Result [facility] ([place]) 1 [facility] Department [place] [address] * (ABNORMAL) CBC with auto differential (03/21/2024 2:35 PM CDT) WBC 6.5 3.8 - 9.9 K/cumm Comment:Testing performed by : [facility] [address], Medical Office [facility] [address], [place] [address] Hgb 12.9(L) 13.0 - 17.5 g/dL [facility] ([place]) Comment:Testing performed by : [facility] [address], Medical Office [facility] [address], [place] [address] Hct 43.2 38.9 - 50.3 % [facility] ([place]) Comment:Testing performed by : [facility] [address], Medical Office [facility] [address], [place] [address] Plt 222 150 - 400 K/cumm [facility] ([place]) Comment:Testing performed by : [facility] [address], Medical Office [facility] [address], [place] [address] MPV 9.6 9.1 - 12.3 fL [facility] ([place]) Comment:Testing performed by : [facility] [address], Medical Office [facility] [address], [place] [address] RBC 5.64 4.30 - 5.80 M/cumm [facility] ([place]) Comment:Testing performed by : [facility] [address], Medical Office [address], [place] [address] MCV 76.6(L) 81.3 - 96.4 fL [facility] ([place]) Comment:Testing performed by : [facility] [address], Medical Office [facility] [address], [place] [address] MCH 22.9(L) 27.1 - 33.3 pg [facility] ([place]) Comment:Testing performed by : [facility] [address], Medical Office [address], [place] [address] MCHC 29.9(L) 32.3 - 35.7 g/dL [facility] ([place]) Comment:Testing performed by : [facility] [address], Medical Office [facility] [address], [place] [address] RDW CV 17.1(H) 11.1 - 14.9 % [facility] ([place]) Comment:Testing performed by : [facility] [address], Medical Office [facility] [address], [place] [address] RDW SD 46.5 35.7 - 48.1 fL [facility] ([place]) Comment:Testing performed by : [facility] [address], Medical Office [facility] [address], [place] [address] NRBC abs Not Measured 0.00 - 0.01 K/cumm [facility] ([place]) Comment:Testing performed by : [facility] [address], Medical Office [facility] [address], [place] [address] Blood 03/21/2024 2:35 PM CDT 03/21/2024 2:36 PM CDT Bronwyn Nava SUMMER CAMP COUNSELOR LAB BLOOD ORDERABLES Final Result [facility] ([place]) 1 [facility] Department [place] [address] documented in this encounter Visit Diagnoses Diagnosis Polycythemia Polycythemia, secondary documented in this encounter Orders Appointment Requests Count Last Ordered Date Fi rst Ordered Date ONCBCN LAB APPOINTMENT 1 03/21/2024 documented in this encounter Care Teams City Collector Relationship Specialty Start Date End Date Christine Herzog MD [address] [facility] [address] [place] [address] PCP - General Internal Medicine 12/02/21 Trey Pinedo MD [address] [facility] [address] [place] [address] Consulting Physician Neurology 05/09/19 Albert Craft MD [address] [place] [address] [address] [place] [address] Consulting Physician Gastroenterology 03/11/22 Chintan Figueroa MD [address] [place] [address] [address] [place], [place] [address] [address] Consulting Physician Hematology and Oncology 03/11/22 Jameel Bloom DPM [address] [place] [address] Consulting Physician Orthotics 03/11/22 Gadiel Genao MD [address] [place] [address] Surgeon Vascular Surgery 03/11/22 documented as of this encounter
--- OUTSIDE RECORDS SUMMARY | 2024-06-18 18:03 | XMS_ITS | Encounter Summary ---
Author Organization [facility] Address [address] [place] [address] Phone Care Team Providers Care Weed Inspector Name Role Phone Trey Pinedo MD Unavailable [phone] Christine Herzog MD Primary Care Provide r Albert Craft MD Unavailable [phone] Chintan Figueroa MD Unavailable [phone] Jameel Bloom DPM Unavailable [phone] Gadiel Genao MD Unavailable [phone] Encounter Details Date Type Department Care Team (Late st Contact Info) Description 11/15/2023 Telephone [facility] [address] [facility] [address] [place] [address] Johanna Bentley Social History Tobacco Use Types Packs/Day Years [...] often do you attend chur ch or presybeterian services? Patient declined 09/28/2022 Do you belong to any clubs o r organizations such as yazidism groups, unions, fraternal or athletic groups, or [...] place to sleep or slept in a usp (including now)? No 09/28/2022 Personal Safety Answer Date Recorded Have you ever been in or are you currently in a harmful physical or emotional relationship or is someone making you feel afraid or unsafe? 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 No answer, left VM to call back documented in this encounter Plan of Treatment Not on file documented as of this encounter Goals Goal Patient Goal Type Associated Problems Recent Progress Patient-Stated? Author GULSHAN General Goal - Patient schedules and keeps appointments with all recommended providers ACO Care Management On track(2022 11:14 AM SURVEY RESEARCH PROFESSOR) Sepideh Guo RN Note: Problem: Potential for [...] on filedocumented in this encounter Care Teams Weed Inspector Relationship Specialty Start Date End Date Christine Herzog MD 2 [facility] [address] [place] [address] PCP - General Internal Medicine 12/02/21 Trey Pinedo MD 4 [facility] [address] [place] [address] Consulting Physician Neurology 05/09/19 Albert Craft MD 2 [facility] [address] [place] [address] Consulting Physician Gastroenterology 03/11/22 Chintan Figueroa MD 2 [facility] [address] [place] [address] Consulting Physician Hematology and Oncology 03/11/22 Jameel Bloom DPM [address] [place] [address] Consulting Physician Orthotics 03/11/22 Gadiel Genao MD [address] [place] [address] Surgeon Vascular Surgery 03/11/22 documented as of this encounter
--- OUTSIDE RECORDS SUMMARY | 2024-06-18 18:03 | XMS_ITS | Encounter Summary ---
Author Organization [facility] Healthcare Address [address] [place] [address] Care Team Providers Care Pizza Maker Name Role Phone Trey Pinedo MD Unavailable [phone] Christine Herzog MD Primary Care Provide r Albert Craft MD Unavailable [phone] Chintan Figueroa MD Unavailable [phone] Jameel Bloom DPM Unavailable [phone] Gadiel Genao MD Unavailable [phone] Encounter Details Date Type Department Care Team (Late st Contact Info) Description 05/16/2024 2:15 PM [facility] [address] [phone] Polycythemia Social History Tobacco Use Types Packs/Day [...] often do you attend chur ch or shinto services? Patient declined 09/28/2022 Do you belong to any clubs o r organizations such as scientology groups, unions, fraternal or athletic groups, or [...] place to sleep or slept in a half-way (including now)? No 09/28/2022 Personal Safety Answer Date Recorded Have you ever been in or are you currently in a harmful physical or emotional relationship or is someone making you feel afraid or unsafe? 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 Gender Identity Not on file Sexual Orientation Straight 01/23/2021 10 :16 PM CDT documented as of this encounter Last Filed Vital Signs Vital Sign Reading Time Taken Comments Blood Pressure 122/73 05/16/2024 2:45 PM OYSTER GRADER Pulse 62 05/16/2024 2:45 PM OYSTER GRADER Temperature 36.3 ??C (97.4 ??F) 05/16/2024 2:45 PM CS T Respiratory Rate 20 05/16/2024 2:45 PM OYSTER GRADER Oxygen Saturation 92% 05/16/2024 2:45 PM OYSTER GRADER Inhaled Oxygen Concentration - - Weight - - Height - - Body Mass Index - - documented in this encounter Plan of Treatment Not on file documented as of this encounter Goals Goal Patient Goal Type Associated Problems Recent Progress Patient-Stated? Author GULSHAN General Goal - Patient schedules and keeps appointments with all recommended providers ACO Care Management On track(2022 11:14 AM OYSTER GRADER) Sepideh Guo RN Note: Problem: Potential for [...] DIFFERENTIAL AUTO Routine 05/16/2024 2:4 5 PM [employer]YSTER GRADER Polycythemia CBC WITH AUTO DIFFERENTIAL Routine 05/16/2024 2:45 PM OYSTER GRADER Polycythemia documented in this encounter Results * Differential, auto (05/16/2024 2:45 PM OYSTER GRADER) Neutrophil abs 4.7 1.5 - 6.5 K/cumm Comment:Testing performed by : [facility] [address], Medical Office [facility] [address], [place] [address] Imm gran abs 0.0 0.0 - 0.1 K/cumm [facility] ([place]) Comment:Testing performed by : [facility] [address], Medical Office [facility] [address], [place] [address] Lymphocyte abs 1.1 0.8 - 3.3 K/cumm [facility] ([place]) Comment:Testing performed by : [facility] [address], Medical Office [facility] [address], [place] [address] Monocyte abs 0.8 0.2 - 0.8 K/cumm [facility] ([place]) Comment:Testing performed by : [facility] [address], Medical Office [facility] [address], [place] [address] Eosinophil abs 0.2 0.0 - 0.5 K/cumm [facility] ([place]) Comment:Testing performed by : [facility] [address], Medical Office [facility] [address], [place] [address] Basophil abs 0.1 0.0 - 0.1 K/cumm [facility] ([place]) Comment:Testing performed by : [facility] [address], Medical Office [facility] [address], [place] [address] Neutrophil pct 68.4 % [facility] ([place]) Comment: Interpretive Data Percent cell count reference ranges are not reported, since discordance with absolute values may lead to misinterpretation of CBC data. Current Interpretive Data was last revised on 2022. Testing performed by: [facility] [address], Medical Office [facility] [address], [place] [address] Imm gran pct 0.0 % [facility] ([place]) Comment: Interpretive Data Percent cell count reference ranges are not reported, since discordance with absolute values may lead to misinterpretation of CBC data. Current Interpretive Data was last revised on 2022. Testing performed by: [facility] [address], Medical Office [address], [place] [address] Lymphocyte pct 16.6 % [facility] ([place]) Comment: Interpretive Data Percent cell count reference ranges are not reported, since discordance with absolute values may lead to misinterpretation of CBC data. Current Interpretive Data was last revised on 2022. Testing performed by: [facility] [address], Medical Office [address], [place] [address] Monocyte pct 11.0 % [facility] ([place]) Comment: Interpretive Data Percent cell count reference ranges are not reported, since discordance with absolute values may lead to misinterpretation of CBC data. Current Interpretive Data was last revised on 2022. Testing performed by: [facility] [address], Medical Office [address], [place] [address] Eosinophil pct 2.2 % [facility] ([place]) Comment: Interpretive Data Percent cell count reference ranges are not reported, since discordance with absolute values may lead to misinterpretation of CBC data. Current Interpretive Data was last revised on 2022. Testing performed by: [facility] [address], Medical Office [address], [place] [address] Basophil pct 1.8 % [facility] ([place]) Comment: Interpretive Data Percent cell count reference ranges are not reported, since discordance with absolute values may lead to misinterpretation of CBC data. Current Interpretive Data was last revised on 2022. Testing performed by: [facility] [address], Medical Office [address], [place] [address] Blood 05/16/2024 2:45 PM [facility]STER GRADER 05/16/2024 2:49 PM [facility] GR[facility]ER Bronwyn Nava [facility] BLOOD ORDERABLES Final Result [facility] ([place]) [address] [facility] [place] [address] * (ABNORMAL) CBC with auto differential (05/16/2024 2:45 PM [facility]YSTER GRADER) WBC 6.6 3.8 - 9.9 K/cumm Comment:Testing performed by : [place], [address] Hgb 14.3 13.0 - 17.5 g/dL [facility] ([place]) Comment:Testing performed by : [place], [address] Hct 48.5 38.9 - 50.3 % [facility] ([place]) Comment:Testing performed by : [place], [address] Plt 197 150 - 400 K/cumm [facility] ([place]) Comment:Testing performed by : [place], [address] MPV 11.1 9.1 - 12.3 fL [facility] ([place]) Comment:Testing performed by : [place], [address] RBC 6.22(H) 4.30 - 5.80 M/cumm [facility] ([place]) Comment:Testing performed by : [place], [address] MCV 78.0(L) 81.3 - 96.4 fL [facility] ([place]) Comment:Testing performed by : [place], [address] MCH 23.0(L) 27.1 - 33.3 pg [facility] ([place]) Comment:Testing performed by : [place], [address] MCHC 29.5(L) 32.3 - 35.7 g/dL [facility] ([place]) Comment:Testing performed by : [place], [address] RDW CV 18.8(H) 11.1 - 14.9 % [facility] ([place]) Comment:Testing performed by : [place], [address] RDW SD 50.4(H) 35.7 - 48.1 fL [facility] ([place]) Comment:Testing performed by : [facility], [place], [address] NRBC abs Not Measured 0.00 - 0.01 K/cumm [facility] ([place]) Comment:Testing performed by : [facility], [facility], [place], [address] Blood 05/16/2024 2:45 PM [facility]YSTER GRADER 05/16/2024 2:49 PM [facility] GR[facility]ER Bronwyn Nava [facility] BLOOD ORDERABLES Final Result [facility] ([place]) 1 [facility] [place] [address] documented in this encounter Visit Diagnoses Diagnosis Polycythemia Polycythemia, secondary documented in this encounter Care Teams Pizza Maker Relationship Specialty Start Date End Date Christine Herzog MD [address] [place] [address] [address] [place] [address] PCP - General Internal Medicine 12/02/21 Trey Pinedo MD [address] [place] [address] [address] [place] [address] Consulting Physician Neurology 05/09/19 Albert rCaft MD [address] [place] [address] [address] [place] [address] Consulting Physician Gastroenterology 03/11/22 Chintan Figueroa MD [address] [facility] [address] [place] [address] Consulting Physician Hematology and Oncology 03/11/22 Jameel Bloom DPM [address] [place] [address] Consulting Physician Orthotics 03/11/22 Gadiel Genao MD [facility] [place] [address] Surgeon Vascular Surgery 03/11/22 documented as of this encounter
--- OUTSIDE RECORDS SUMMARY | 2024-06-18 18:03 | XMS_ITS | Encounter Summary ---
Author Organization [facility] Healthcare Address [address] [place] [address] Care Team Providers Care Foreign Language Stenographer Name Role Phone Trey Pinedo MD Unavailable [phone] Christine Herzog MD Primary Care Provide r Albert Craft MD Unavailable [phone] Chintan Figueroa MD Unavailable [phone] Jameel Bloom DPM Unavailable [phone] Gadiel Genao MD Unavailable [phone] Reason for Visit * Reason Comments Phlebotomy Encounter Details Date Type Department Care Team (Late st Contact Info) Description 03/21/2024 2:30 PM CDT [facility] [address] [place] [phone] Polycythemia Social History Tobacco Use Types Packs/Day [...] often do you attend chur ch or adventist services? 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 Vitals and labs were taken and reviewed. Hct was 43.2 which was outside treatment parameter. Phlebotomy was not performed at this time. Next apppointment confirmed. AVS was printed and presented to patient who was discharged in stable condition. documented in this encounter Plan of Treatment Not on file documented as of this encounter Goals Goal Patient Goal Type Associated Problems Recent Progress Patient-Stated? 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) No Sepideh Hi, SUE Note: Problem: Potential [...] as of this encounter Visit Diagnoses Diagnosis Polycythemia Polycythemia, secondary documented in this encounter Orders Appointment Requests Count Last Ordered Date Fi rst Ordered Date ONCBCN THERAPEUTIC PHLEBOTOM Y APPOINTMENT REQUEST 1 03/21/2024 documented in this encounter Care Teams Foreign Language Stenographer Relationship Specialty Start Date End Date Christine Herzog MD [address] [facility] [address] [place] [address] PCP - General Internal Medicine 12/02/21 Trey Pinedo MD [address] [facility] [address] [place] [address] Consulting Physician Neurology 05/09/19 Albert Craft MD [address] [facility] [address] [place] [address] Consulting Physician Gastroenterology 03/11/22 Chintan Figueroa MD [address] [facility] [address] [place] [address] Consulting Physician Hematology and Oncology 03/11/22 Jameel Bloom DPM [address] [place] [address] Consulting Physician Orthotics 03/11/22 Gadiel Genao MD [address] [place] [address] Surgeon Vascular Surgery 03/11/22 documented as of this encounter
--- OUTSIDE RECORDS SUMMARY | 2024-06-18 18:03 | XMS_ITS | Clinical Summary ---
Author Organization [facility] Address [address] [place] [address] Care Team Providers Care Business Operations Manager Name Role Phone Trey Pinedo MD Unavailable [phone] Christine Herzog MD Primary Care Provide r Albert Craft MD Unavailable [phone] Chintan Figueroa MD Unavailable [phone] Jameel Bloom DPM Unavailable [phone] Gadiel Genao MD Unavailable Allergies Active Allergy Reactions Criticality Noted Date [...] 5 mg tabletIndications :Coronary artery disease involving [place] coronary artery of [place] heart without angina pectoris,Essentia l hypertension,Paro xysmal [...] 6 months Encourage hydration Current use of custodial anticoagulation 023 PVC (premature ventricular contraction) 02/10/20 [...] 17 Referral to memory clinic and [facility] Referral for home health to help with medication management Pt refuses to move in with son at this time Son working on getting him to move in F/u in 6 months Dizziness 12/15/2021 Assessment & Plan (12/15/2021 6:29 PM CDT): Orthostatics in office negative Referral to ENT given for evaluation of vertigo Can try scopolamine [id number] for symptomatic relief Generalized weakness 12/09/2021 Assessment & Plan (12/09/2021 6:33 PM CDT): No signs of infection or fluid overload. Suspect weakness due to age related debility. Patient's son requests for patient to have home PT rather than outpatient PT marketing strategy manager consulted for the same. Continue PT [...] (11/12/2019): Added automatically from request for surgery [id number] Type 2 diabetes mellitus with hyperlipidemia Assessment [...] 05/20/2019 Assessment & Plan (08/16/2019 10:51 AM LOOM FIXER): Uncontrolled HTN certainly a concern given hx of TIA, CAD. Education provided to him and of importance in HTN regimen. Assessment & Plan (05/20/2019 10:17 AM LOOM FIXER): CT imaging detailed above demonstrating cerebrovascular arteriosclerosis [...] 05/08/2019 Assessment & Plan (05/20/2019 10:21 AM LOOM FIXER): Chads Vasc score 3/9 with recent TIA, imaging all negative for acute stroke. Hx of CVD, CVA, CAD does recommending Pt to Cnt. Dual anti-platelet therapy for at least 3 months or can consider stepping down from Plavix only if recommended by creative services intern, increasing atorvastatin 80 mg daily. History of noncompliance with medical treatment 05/08/2019 History of colon polyps 11/17/2018 Assessment & Plan (11/17/2018 11:24 AM CDT): Colonoscopy last year showed few adenoma polyps removed. Next colonoscopy will be 2020. Bladder stones 2017 Coronary artery disease invo lving [place] coronary artery of [place] heart without angina pectoris 2017 Assessment & [...] johanne Assessment & Plan (05/20/2019 10:19 AM LOOM FIXER): Hx of CAD with stents, HLD, arteriosclerosis [...] needed Assessment & Plan (05/20/2019 10:22 AM LOOM FIXER): Stable. Cnt. Current Nexium dosing. Assessment & Plan (11/17/2018 11:21 AM CDT): Patient is doing well on Nexium. Will continue the same. Polycythemia 07/07/2017 Assessment & Plan (03/22/2023 7:11 AM CDT): Continue following with hematology Assessment & Plan (07/07/2017 3:41 PM LOOM FIXER): Patient is currently undergoing treatment per Hematology. He is concerned his blood counts may be drifting upward and request CBC today. Blood work will be drawn and results will be forwarded along to retail wireless sales representative for review as well. Further direction pending [...] urology Assessment & Plan (05/20/2019 10:16 AM LOOM FIXER): Asymptomatic and stable medication. Cnt. Proscar, Flomax. [...] monitor. Assessment & Plan (05/20/2019 10:21 AM LOOM FIXER): Much improved with clonidine patch. Pt was [...] statin Assessment & Plan (05/20/2019 10:20 AM LOOM FIXER): Increase Lipitor to 80 mg a day [...] 08/16/201910/24 Assessment & Plan (08/16/2019 10:50 AM LOOM FIXER): Improving, but uncontrolled. Cont valsartan, metoprolol and adding clonidine patch back into regimen. New script written for BP machine D/T home machine inaccuracies. Sx to monitor for, report given to both him and . Repeat BMP in 1 month D/T recently starting valsartan. RTC next week as scheduled. History of recent hospitalization 05/20/2019 05/20/2019 Assessment & Plan (05/20/2019 10:11 AM LOOM FIXER): Recent hospitalization records reviewed with labs and diagnostics all detailed above Hypertensive emergency 05/08/201905/20 Type 2 diabetes mellitus with hyperlipidemia 8 11/29/2018 Skin tear of left hand without complication 08/21/2017 2017 Assessment & Plan (08/21/2017 1:58 PM LOOM FIXER): Patient has adequate supply Bactroban previously prescribed. [...] 08/15/2017 Assessment & Plan (08/21/2017 1:57 PM LOOM FIXER): Resolved. There is no indication for additional antibiotics at the present time. Assessment & Plan (08/15/2017 12:08 PM LOOM FIXER): Patient was encouraged to apply topical antibiotic [...] 08/21/2017 Assessment & Plan (08/15/2017 12:07 PM LOOM FIXER): Patient was encouraged to apply topical Bactroban [...] 07/07/20172017 Assessment & Plan (07/07/2017 3:40 PM LOOM FIXER): Patient has an abrasion on the plantar [...] 2017 Assessment & Plan (07/07/2017 3:40 PM LOOM FIXER): I recommended we proceed with x-ray of the sacrum and coccyx to rule out underlying fracture. Further direction pending x-ray results. Sebaceous cyst 06/11/2017 2017 Assessment & Plan (06/11/2017 5:14 PM LOOM FIXER): Discussed with the patient the results. Patient [...] 02/26/2020 Assessment & Plan (05/20/2019 10:16 AM LOOM FIXER): Closely by . Next EGD scheduled for 2020. Cnt. Nexium therapy prior advised. 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 Next EGD should be in year 2020 for surveillance. Coronary artery disease invo lving [place] heart without angina pectoris 12/26/2016 2017 Type 2 diabetes mellitus 11/16/2013 Overview (10/05/2016): DMII WO CMP NT ST UNCNTR Chronic obstructive pulmonary disease 11/16/2013 2017 Overview (10/07/2016): CHR AIRWAY OBSTRUCT NEC Encounters Date Type Department Care Team Description 05/16/2024 2:30 PM LOOM FIXER Infusion [address] [place] [address] Polycythemia (Primary Dx) 05/16/2024 2:15 PM LOOM FIXER Lab [address] [place] [address] Polycythemia 03/21/2024 2:30 PM CDT Infusion [facility] [address] [place] [address] Polycythemia 03/21/2024 2:15 PM CDT Lab [facility] [address] [place] [address] Polycythemia from Last 3 Months Immunizations Name Administration Dates Next Due Influenza, [...] Unspecified 09/22/2022(D eferred: Patient Refused) Tdap 09/16/2022,12/19/2007 Surgical History Surgery Date Site/Laterality Comments OTHER SURGICAL HISTORY 07/03/2002 - 07/02/2003 Carpal tunnel release both OTHER SURGICAL HISTORY karen total knees OTHER SURGICAL HISTORY 07/03/2012 - 07/02/2013 Heart stents: [facility] COLONOSCOPY 07/03/2009 - 07/02/2010 Medical History Medical History Date Comments Diabetes mellitus (HCC) Diabetes Chronic obstructive pulmonary disease (HCC) COPD Hyperlipidemia Hyperlipidemia Hypertension Hypertension Hx Other Medical 2012 Heart stents Hx Other Medical urinary stent s placed GERD (gastroesophageal reflux disease) Mayo esophagus Heart disease Kidney stone Polycythemia Polycythemia Family History Medical History Relation Name Comments Cancer Brother Andrew Zuniga Alzheimer's disease Father Juliano Zuniga Alzhe gopal's Disease; Memory loss Father Juliano Zuniga Cancer Mother Fatou Pleitez Tendick Cancer; Diabetes Mother Fatou Pleitez Tendick Diabetes mellitus; Heart attack Mother Fatou Pleitez Tendick Heart disease Mother Fatou Pleitez Tendick Heart d isease; Hypertension Mother Fatoucrow Pleitez Tendick Hyperten ted; Stroke Mother Fatou Pleitez Tendick Stroke; Relation Name Status Comments Brother Andrew Zuniga Father Juliano Zuniga Mother Fatou Pleitez Tendick Alive Social History Tobacco Use Types Packs/Day Years [...] often do you attend chur ch or oriental orthodox services? Patient declined 09/28/2022 Do you belong to any clubs o r organizations such as catholic groups, unions, fraternal or athletic groups, or [...] on file 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 LOOM FIXER Gender Identity Not on file Sexual Orientation Straight 01/23/2021 10 :16 PM CDT Obstetrics History Last Filed Vital Signs Vital Sign Reading Time Taken Comments Blood Pressure 112/68 05/16/2024 4:10 PM LOOM FIXER Pulse 56 05/16/2024 4:10 PM LOOM FIXER Temperature 36.3 ??C (97.4 ??F) 05/16/2024 2:45 PM CS T Respiratory Rate 18 05/16/2024 4:10 PM LOOM FIXER Oxygen Saturation 100% 05/16/2024 4:10 PM LOOM FIXER Inhaled Oxygen Concentration - - Weight 90.4 kg (199 lb 3.2 oz) 03/21/2024 2:30 P M CDT Height 170.2 cm (5' 7 ) 01/18/2024 5:39 PM CDT Body Mass Index 31.2 01/18/2024 5:39 PM CDT Plan of Treatment Health Maintenance Due Date Last Done Comments Hepatitis B Screening 1963 Zoster Vaccine (1 of 2) 1996 Foot Exam 08/27/2021 08/27/2020, 10/02, 04/23/2018, Additional history exists Lung Cancer Screening 09/09/2021 09/09/2020 , 02/14/2019, 10/11/2017, Additional history exists Dilated Eye Exam 02/02/2022 02/03/2020, 04/08/2014 Prostate Cancer Screening-PSA 01/27/2024, 10/06/2021, 03/04/2021, Additional history exists Covid-19 Vaccine ( - 2023-2 5 season) 2024 09/06/2021, 06/29/2021, 09/22/2020, Additional history exists Influenza Vaccine (#1) 2024 Well Visit 65+ 03/23/2024 03/23/2023, 01/2022, 03/04/2021, Additional history exists Hemoglobin A1C 06/14/2024 12/14/2023, 03/04, 01/26/2023, Additional history exists Albumin Creatinine Ratio, Urine 12/13/2024 12/14/2023, 01/26/2023, 08/27/2020, Additional history exists Depression Screening 12/13/2024 12/14/2023, 03/23/2023, 03/23/2023, Additional history exists Fall Risk Assessment 12/13/2024 12/14/2023, 03/23/2023, 01/26/2023, Additional history exists Lipid Panel 03/02/2025 03/02/2024, 05/0 10/2023, 03/23/2023, Additional history exists eGFR 03/02/2025 03/02/2024, 12/01, 11/04/2023, Additional history exists DTaP/Tdap/Td Vaccine (3 - Td or Tdap) 09/16/2032 09/16/2022, 12/19/2007 Hepatitis C Screening Completed 06/17/2016, 016 Colon Cancer Screening-CT Colonography Discontinued 01/09/2018, 07/26/2006 Colon Cancer Screening-Colonoscopy Discontinued 01/09/2018, 07/26/2006 Colon Cancer Screening-DNA Stool Discontinued 01/10/20 18, 07/26/2006 Colon Cancer Screening-FIT Discontinued 01/09/2018, Colon Cancer Screening-FOBT Discontinued 01/09/2018, 0 07/26/2006 Colon Cancer Screening-Sigmoidoscopy Discontinued 01/09/2018, 07/26/2006 Colorectal Cancer Screening Discontinued Abdominal Aortic Aneurysm (A AA) Screen Completed 12/08/2021, 12/28/2020, 10/11/2018, Additional history exists Pneumococcal vaccine 65+ Completed 04/18/2024 Goals Goal Patient Goal Type Associated Problems Recent Progress Patient-Stated? Author GULSHAN General Goal - Patient schedules and keeps appointments with all recommended providers ACO Care Management On track(2022 11:14 AM LOOM FIXER) Sepideh Guo, SUE Note: Problem: Potential for [...] medication regimen. Medical Devices Implanted Type Area Tool Keeper Device Identifier Shelf Expiration Date Model / Serial / Lot Meggan-09/04/2012 Implanted:09/04 (Quantity not on file) Coronary Procedures Procedure Name Priority Date/Time Associated Diagnosis Comments DIFFERENTIAL AUTO Routine 05/16/2024 2:4 5 PM LOOM FIXER Polycythemia CBC WITH AUTO DIFFERENTIAL Routine 05/16/2024 2:45 PM LOOM FIXER Polycythemia DIFFERENTIAL AUTO Routine 03/21/2024 2:3 5 [...] Read Routine (OP Routine) 09/09/2020 1:02 PM LOOM FIXER History of tobacco abuse Encounter for screening for lung cancer DIABETIC EYE EXAM Routine 02/03/2020 COLONOSCOPY 01/09/2018 8:46 AM CDT DIABETES FOOT EXAM Routine 08/18/2016 HEPATITIS C SCREENING Routine 06/17/2016 from Last 3 Months or Most Recently Relevant to Health Maintenance Results * Differential, auto (05/16/2024 2:45 PM LOOM FIXER) Neutrophil abs 4.7 1.5 - 6.5 K/cumm Comment:Testing performed by : [facility] [address], Medical Office [facility] [address], [place] [address] Imm gran abs 0.0 0.0 - 0.1 K/cumm [facility] ([place]) Comment:Testing performed by : [facility] [address], Medical Office [facility] [address], [place] [address] Lymphocyte abs 1.1 0.8 - 3.3 K/cumm [facility] ([place]) Comment:Testing performed by : [facility] [address], Medical Office [facility] [address], [place] [address] Monocyte abs 0.8 0.2 - 0.8 K/cumm [facility] ([place]) Comment:Testing performed by : [facility] [address], Medical Office [facility] [address], [place] [address] Eosinophil abs 0.2 0.0 - 0.5 K/cumm [facility] ([place]) Comment:Testing performed by : [facility] [address], Medical Office [facility] [address], [place] [address] Basophil abs 0.1 0.0 - 0.1 K/cumm [facility] ([place]) Comment:Testing performed by : [facility] [address], Medical Office [facility] [address], [place] [address] Neutrophil pct 68.4 % [facility] ([place]) Comment: Interpretive Data Percent cell count reference ranges are not reported, since discordance with absolute values may lead to misinterpretation of CBC data. Current Interpretive Data was last revised on 2022. Testing performed by: [facility] [address], Medical Office [facility] [address], [place] [address] Imm gran pct 0.0 % [facility] ([place]) Comment: Interpretive Data Percent cell count reference ranges are not reported, since discordance with absolute values may lead to misinterpretation of CBC data. Current Interpretive Data was last revised on 2022. Testing performed by: [facility] [address], Medical Office [facility] [address], [place] [address] Lymphocyte pct 16.6 % [facility] ([place]) Comment: Interpretive Data Percent cell count reference ranges are not reported, since discordance with absolute values may lead to misinterpretation of CBC data. Current Interpretive Data was last revised on 2022. Testing performed by: [facility] [address], Medical Office [facility] [address], [place] [address] Monocyte pct 11.0 % [facility] ([place]) Comment: Interpretive Data Percent cell count reference ranges are not reported, since discordance with absolute values may lead to misinterpretation of CBC data. Current Interpretive Data was last revised on 2022. Testing performed by: [facility] [address], Medical Office [facility] [address], [place] [address] Eosinophil pct 2.2 % [facility] ([place]) Comment: Interpretive Data Percent cell count reference ranges are not reported, since discordance with absolute values may lead to misinterpretation of CBC data. Current Interpretive Data was last revised on 2022. Testing performed by: [facility] [address], Medical Office [facility] [address], [place] [address] Basophil pct 1.8 % [facility] ([place] Comment: Interpretive Data Percent cell count reference ranges are not reported, since discordance with absolute values may lead to misinterpretation of CBC data. Current Interpretive Data was last revised on 2022. Testing performed by: [facility] [address], Medical Office [facility] [address], [place] [address] Blood 05/16/2024 2:45 PM LOOM FIXER 05/16/2024 2:49 PM LOOM FIXER Bronwyn Nava NP LAB BLOOD ORDERABLES Final Result [facility] ([place]) [facility] [place] [address] * (ABNORMAL) CBC with auto differential (05/16/2024 2:45 PM LOOM FIXER) WBC 6.6 3.8 - 9.9 K/cumm Comment:Testing performed by : [place], [address] Hgb 14.3 13.0 - 17.5 g/dL [facility] ([place]) Comment:Testing performed by : [place], [address] Hct 48.5 38.9 - 50.3 % [facility] ([place]) Comment:Testing performed by : [facility], [place], [address] Plt 197 150 - 400 K/cumm [facility] ([place]) Comment:Testing performed by : [place], [address] MPV 11.1 9.1 - 12.3 fL [facility] ([place]) Comment:Testing performed by : [place], [address] RBC 6.22(H) 4.30 - 5.80 M/cumm [facility] ([place]) Comment:Testing performed by : [place], [address] MCV 78.0(L) 81.3 - 96.4 fL [facility] ([place]) Comment:Testing performed by : [place], [address] MCH 23.0(L) 27.1 - 33.3 pg [facility] ([place]) Comment:Testing performed by : [place], [address] MCHC 29.5(L) 32.3 - 35.7 g/dL [facility] ([place]) Comment:Testing performed by : [place], [address] RDW CV 18.8(H) 11.1 - 14.9 % [facility] ([place]) Comment:Testing performed by : [place], [address] RDW SD 50.4(H) 35.7 - 48.1 fL [facility] ([place]) Comment:Testing performed by : [facility], [place], [address] NRBC abs Not Measured 0.00 - 0.01 K/cumm [facility] ([place]) Comment:Testing performed by : [facility], [facility], [place], [address] Blood 05/16/2024 2:45 PM LOOM FIXER 05/16/2024 2:49 PM LOOM FIXER Bronwyn Nava PLUG CUTTER LAB BLOOD ORDERABLES Final Result [facility] ([place]) [address] [facility] Department [place] [address] * Differential, auto (03/21/2024 2:35 PM CDT) Neutrophil abs 4.3 1.5 - 6.5 K/cumm Comment:Testing performed by : [facility] [address], Medical Office [facility] [address], [place] [address] Imm gran abs 0.0 0.0 - 0.1 K/cumm [facility] ([place]) Comment:Testing performed by : [facility] [address], Medical Office [facility] [address], [place] [address] Lymphocyte abs 1.2 0.8 - 3.3 K/cumm [facility] ([place]) Comment:Testing performed by : [facility] [address], Medical Office [facility] [address], [place] [address] Monocyte abs 0.7 0.2 - 0.8 K/cumm [facility] ([place]) Comment:Testing performed by : [facility] [address], Medical Office [facility] [address], [place] [address] Eosinophil abs 0.2 0.0 - 0.5 K/cumm [facility] ([place]) Comment:Testing performed by : [facility] [address], Medical Office [facility] [address], [place] [address] Basophil abs 0.1 0.0 - 0.1 K/cumm [facility] ([place]) Comment:Testing performed by : [facility] [address], Medical Office [facility] [address], [place] [address] Neutrophil pct 65.4 % [facility] ([place]) Comment: Interpretive Data Percent cell count reference ranges are not reported, since discordance with absolute values may lead to misinterpretation of CBC data. Current Interpretive Data was last revised on 2022. Testing performed by: [facility] [address], Medical Office [address], [place] [address] Imm gran pct 0.3 % [facility] ([place]) Comment: Interpretive Data Percent cell count reference ranges are not reported, since discordance with absolute values may lead to misinterpretation of CBC data. Current Interpretive Data was last revised on 2022. Testing performed by: [facility] [address], Medical Office [address], [place] [address] Lymphocyte pct 19.0 % [facility] ([place]) Comment: Interpretive Data Percent cell count reference ranges are not reported, since discordance with absolute values may lead to misinterpretation of CBC data. Current Interpretive Data was last revised on 2022. Testing performed by: [facility] [address], Medical Office [address], [place] [address] Monocyte pct 11.1 % [facility] ([place]) Comment: Interpretive Data Percent cell count reference ranges are not reported, since discordance with absolute values may lead to misinterpretation of CBC data. Current Interpretive Data was last revised on 2022. Testing performed by: [facility] [address], Medical Office [address], [place] [address] Eosinophil pct 2.8 % [facility] ([place]) Comment: Interpretive Data Percent cell count reference ranges are not reported, since discordance with absolute values may lead to misinterpretation of CBC data. Current Interpretive Data was last revised on 2022. Testing performed by: [facility] [address], Medical Office [address], [place] [address] Basophil pct 1.4 % [facility] ([place]) Comment: Interpretive Data Percent cell count reference ranges are not reported, since discordance with absolute values may lead to misinterpretation of CBC data. Current Interpretive Data was last revised on 2022. Testing performed by: [facility] [address], Medical Office [facility] [address], [place] [address] Blood 03/21/2024 2:35 PM CDT 03/21/2024 2:36 PM CDT Bornwyn Nava PLUG CUTTER LAB BLOOD ORDERABLES Final Result [facility] ([place]) [facility] [place] [address] * (ABNORMAL) CBC with auto differential (03/21/2024 2:35 PM CDT) WBC 6.5 3.8 - 9.9 K/cumm Comment:Testing performed by : [facility] [address], Medical Office [facility] [address], [place] [address] Hgb 12.9(L) 13.0 - 17.5 g/dL [facility] ([place]) Comment:Testing performed by : [facility] [address], Medical Office [facility] [address], [place] [address] Hct 43.2 38.9 - 50.3 % [facility] ([place]) Comment:Testing performed by : [facility] [address], Medical Office [facility] [address], [place] [address] Plt 222 150 - 400 K/cumm [facility] ([place]) Comment:Testing performed by : [facility] [address], Medical Office [facility] [address], [place] [address] MPV 9.6 9.1 - 12.3 fL [facility] ([place]) Comment:Testing performed by : [facility] [address], Medical Office [facility] [address], [place] [address] RBC 5.64 4.30 - 5.80 M/cumm [facility] ([place]) Comment:Testing performed by : [facility] [address], Medical Office [facility] [address], [place] [address] MCV 76.6(L) 81.3 - 96.4 fL [facility] ([place]) Comment:Testing performed by : [facility] [address], Medical Office [facility] [address] [facility] [address], [place] [address] MCH 22.9(L) 27.1 - 33.3 pg [facility] ([place]) Comment:Testing performed by : [facility] [address], Medical Office [facility] [address], [place] [address] MCHC 29.9(L) 32.3 - 35.7 g/dL [facility] ([place]) Comment:Testing performed by : [facility] [address], Medical Office [facility] [address], [place] [address] RDW CV 17.1(H) 11.1 - 14.9 % [facility] ([place]) Comment:Testing performed by : [facility] [address], Medical Office [facility] [address], [place] [address] RDW SD 46.5 35.7 - 48.1 fL [facility] ([place]) Comment:Testing performed by : [facility] [address], Medical Office [facility] [address], [place] [address] NRBC abs Not Measured 0.00 - 0.01 K/cumm [facility] ([place]) Comment:Testing performed by : [facility] [address], Medical Office [facility] [address], [place] [address] Blood 03/21/2024 2:35 PM CDT 03/21/2024 2:36 PM CDT Bronwyn Nava PLUG CUTTER LAB BLOOD ORDERABLES Final Result RUBENS CARMICHAEL ([place]ETTY) 1 [facility] [place] [address] * (ABNORMAL) eGFR (03/02/2024 10:13 AM CDT) [...] MD LAB BLOOD ORDERABLES Final R esult YINOTG XNP ([place]) [address] [facility] [place] [address] * Lipid panel (03/02/2024 10:13 [...] on 2018. Triglycerides 75 <=149 mg/dL RUBENS CARMICHAEL (BETTY) Comment: Interpretive Data [...] on 2018. HDL 40 >=40 mg/dL RUBENS Antonio (BETTY) Comment: Interpretive Data Ages < or [...] 03/02/2024 11:10 AM CDT fax results to [phone] us Bijal Galindo MD LAB BLOOD ORDERABLES Final R esult Performing Organization Address [facility] Co de Phone Number RUBENS CARMICHAEL (BETTY) 1 [facility] Department [place] [address] * (ABNORMAL) Albumin Creatinine Ratio, Urine (12/14/2023 9:36 AM CDT) Albumin Ur 135.9 mg/L Comment: Interpretive Data No reference range established. Current interpretive data was last revised 2018. Testing performed by: [facility], [address] [place] [address]., [phone] Creatinine Ur 247.3 mg/dL RUBENS CARMICHAEL (BETTY) Comment: Interpretive Data No reference range established. Current interpretive data was last revised 2018. Testing performed by: [facility], [address] [place] [address]., [address] Albumin Creatinine Ratio, Ur 55(H) 1 - 29 mg/g RUBENS CARMICHAEL (BETTY) Comment:Testing performed by : [facility], [address] [place] [address]., [id number] Urine 12/14/2023 9:36 AM CDT 12/14/2023 1:31 PM CDT Narrative RUBENS CARMICHAEL (BETTY) - 12/14/2023 2:34 PM CDT Non fasting us Christine Herzog MD LAB URINE ORDERABLES Final Result Performing Organization Address City/[facility]/ZIP Co de Phone Number RUBENS CARMICHAEL (BETTY) 1 [facility] [place] [address] * (ABNORMAL) Hemoglobin A1c (12/14/2023 9:36 AM CDT) Hgb A1C 6.7(H) 4.0 - 5.6 % Estimated Average Glucose 146 mg/dL RUBENS CARMICHAEL (BETTY) Comment: The ADA recommends reporting an estimated Average Glucose (eAG) with all Hemoglobin A1c results using the equation derived from a study of 507 normal and diabetic adults. ??Minority populations were underrepresented and children were not included. ?? (Diabetes Care 31:2208-6394, 2008). ??The eAG is not equivalent to a fasting glucose. Blood 12/14/2023 9:36 AM CDT 12/14/2023 10:33 AM CDT Narrative RUBENS CARMICHAEL (BETTY) - 12/14/2023 11:02 AM CDT fasting us Christine Herzog MD LAB BLOOD ORDERABLES Final Result RUBENS CARMICHAEL (BETTY) 1 [facility] Department [place] [address] * PSA screen (01/26/2023 12:39 PM CDT) PSA-Total 2.31 <=6.20 ng/mL RUBENS CARMICHAEL (BETTY) Comment: Interpretive Data ?AGE ? SEX ?REFERENCE INTERVAL 0 minutes-150 years ?Female ?None 0 minutes-49 years ? Male ?None ? 50-59 years ? Male ?0-3.90 ? 60-69 years ? Male ?0-5.40 ? 70-79 years ? Male ?0-6.20 ? 80-150 years ?Male ?0-6.20 The [employer] US PSA Total assay procedure was used. Results from different manufacturers or methods may not be comparable. Serial testing should be performed using the same method. Current interpretive data last revised 21. Blood 01/26/2023 12:3 9 PM CDT 01/26/2023 1:56 PM CDT us Christine Herzog MD LAB BLOOD ORDERABLES Final Result RUBENS CARMICHAEL ([place]) 1 [facility] [place] [address] * CT Chest Abdomen Pelvis WO Contrast [...] PM T: ??12/08/2021 10:00 PM Report ID: [id number] Reading Location: ??[id number] Procedure Note Trey Siegel MD - 12/08/2021 [...] Trey Siegel M.D. ML: ML Report ID: [id number] Reading Location: [place] [address] Prema Zaman MD IMG CT PROCEDURES Final Result * CT Lung Cancer Screening (09/09/2020 1:02 PM LOOM FIXER) Anatomical Region Laterality Modality Chest N/A Computed Tomogra phy 09/09/2020 1:15 PM LOOM FIXER Impressions 09/09/2020 1:19 PM LOOM FIXER LUNG RADS CATEGORY 1 WITH NO SUSPICIOUS PULMONARY NODULES. COPD. ATHEROSCLEROSIS. CONTINUED [address]OW-DOSE CT SURVEILLANCE Electronically signed by: Shorty Carvalho M.D. Narrative 09/09/2020 1:19 PM LOOM FIXER EXAMINATION: CT LUNG CANCER SCREENING dated 09/09/2020 1:00 PM HISTORY: 74-year-old man lung cancer screening. 25 pack-year history, quit smoking July 2008 TECHNIQUE: Low-dose noncontrast spiral CT of multiplanar reconstructions FINDINGS: Comparison with multiple priors most recently dated 02/14/2019. Directional Driller radiograph once again demonstrates tortuous aorta with [...] with multiple priors most recently dated 02/14/2019. Directional Driller radiograph once again demonstrates tortuous aorta with [...] by: Shorty Carvalho M.D. Wesley Em MD [facility] CT PROCEDURES Final Result * Diabetic Eye Exam (02/03/2020) Historical Provider [facility] Edited Result - Final * COLONOSCOPY (01/09/2018 8:46 AM CDT) Anatomical Region Laterality Modality Other Narrative Procedure Note Albert Craft MD - 01/09/2018 8:46 AM CDT [facility] Patient Name: Verna Zuniga Procedure Date: 01/09/2018 8:46 AM Date of : 1945 Admit Type: Outpatient Age: 72 Gender: Male Attending MD: Albert Craft MD Room: [facility] ENDOSCOPY CAPSULE Note Status: Finalized Patient [...] passed under direct vision.The Pediatric Colonoscope PCF-H190L [id number] was introduced through the anus and advanced [...] 8:46 AM Procedure Code(s): --- Professional --- 03628, Colonoscopy, flexible; with removal of tumor(s), polyp(s), or other lesion(s) by snare technique 75354, 59, Colonoscopy, flexible; with biopsy, single or multiple Diagnosis Code(s): --- Professional --- Z12.11, Encounter for screening for malignant neoplasm of colon D12.0, Benign neoplasm of cecum D12.2, Benign neoplasm of ascending colon D12.4, Benign neoplasm of descending colon K64.8, Other hemorrhoids CPT copyright 2017 [employer]. All rights reserved. The codes documented in this report are preliminary and upon assignment agent reviewmay be revised to meet current compliance requirements. Recognized by the [place] [employer] for promoting quality in endoscopy Albert Craft MD ENDOSCOPY PROCEDURES Final Result * DIABETES FOOT EXAM (08/18/2016) Diabetic Foot Exam Unknown Historical Provider HEALTH MAINTENANCE Final Result * HEPATITIS C SCREENING (06/17/2016) Pathologist [facility] HEP C Normal Historical Provider HEALTH MAINTENANCE Final Result from Last 3 Months or Most Recently Relevant to Health Maintenance Insurance MEDICARE [facility] MEDICARE Member Subscriber Plan / Payer ( fective 2011-) Name:VERNA ZUNIGA Member ID:[id number] Relation to Subscriber:Self Name:Verna Zuniga Subscriber ID:[id number] Payer ID:[id number] Group ID:Not on file Type:MEDICARE TRADITIONAL Address: [place] [id number] [facility] MEDICARE Member Subscriber Plan / Payer ( fective 2011-Present) Name:Verna Zuniga Member ID:[id number] Relation to Subscriber:Self Name:Verna Zuniga Subscriber ID:[id number] Payer ID:[id number] Group ID:Not on file Type:MEDICARE TRADITIONAL Address: [place] [id number] [facility] [address] [id number] MEDICARE [facility] Advance Directives For more information, please contact: [phone] Documents on File Type Date Recorded Patient Ambulatory Service Representative Expl anation ADVANCE DIRECTIVE 09/16/2016 12:00 AM ENRIKE R OF 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 SALES 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 FINANCIAL/MEDICAL * Full Code (Latest Code Status [...] 7:10 AM 01/09/2018 12:30 PM Care Teams Business Operations Manager Relationship Specialty Start Date End Date Christine Herzog MD [address] [place] [address] [address] [place] [address] PCP - General Internal Medicine 12/02/21 Trey Pinedo MD [address] [place] [address] [address] [place] [address] Consulting Physician Neurology 05/09/19 Albert Craft MD [address] [place] [address] [address] [place] [address] Consulting Physician Gastroenterology 03/11/22 Chintan Figueroa MD [address] [place] [address] [address] [place] [address] Consulting Physician Hematology and Oncology 03/11/22 Jameel Bloom DPM [address] [place] [address] Consulting Physician Orthotics 03/11/22 Gadiel Genao MD [address] [place] [address] Surgeon Vascular Surgery 03/11/22
--- OUTSIDE RECORDS SUMMARY | 2024-06-18 18:03 | XMS_ITS | Encounter Summary ---
Author Organization [facility] Address [address] [place] [address] Phone Care Team Providers Care Road Freight Firer Name Role Phone Trey Pinedo MD Unavailable [phone] hCristine Herzog MD Primary Care Provide r Albert Craft MD Unavailable [phone] Chintan Figueroa MD Unavailable [phone] Jameel Bloom DPM Unavailable [phone] Gadiel Genao MD Unavailable [phone] Encounter Details Date Type Department Care Team (Late st Contact Info) Description 12/01/2023 Telephone [facility] Oncology [address] [place] [address] [address] [phone] Josefa Santana, NICAT Social History Tobacco Use Types Packs/Day [...] any clubs o r organizations such as sikh groups, unions, fraternal or athletic groups, or [...] place to sleep or slept in a mcc (including now)? No 09/28/2022 Personal Safety Answer Date Recorded Have you ever been in or are you currently in a harmful physical or emotional relationship or is someone making you feel afraid or unsafe? Denies 09/25/2022 Sex and Gender Information Value Date Recorded Sex Assigned at Not on file 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 WAX BALL MOLDER Gender Identity Not on file Sexual Orientation Straight 01/23/2021 10 :16 PM CDT documented as of this encounter Miscellaneous Notes * Telephone Encounter - Josefa Santana CLT - 12/01/2023 3:47 PM CDT LMOM REGARDING MISSED APPT documented in this encounter Plan of Treatment Not on file documented as of this encounter Goals Goal Patient Goal Type Associated Problems Recent Progress Patient-Stated? Author GULSHAN General Goal - Patient schedules and keeps appointments with all recommended providers ACO Care Management On track(2022 11:14 AM WAX BALL MOLDER) Sepideh Guo RN Note: Problem: Potential for [...] on filedocumented in this encounter Care Teams Road Freight Firer Relationship Specialty Start Date End Date Christine Herzog MD [address] [facility] [address] [place] [address] PCP - General Internal Medicine 12/02/21 Trey Pinedo MD [address] [place] [address] [address] [place] [address] Consulting Physician Neurology 05/09/19 Albert Craft MD [address] [place] [address] [address] [place] [address] Consulting Physician Gastroenterology 03/11/22 Chintan Figueroa MD [address] [place] [address] [address] [place] [address] Consulting Physician Hematology and Oncology 03/11/22 Jameel Bloom DPM [address] [place] [address] Consulting Physician Orthotics 03/11/22 Gadiel Genao MD [address] [place] [address] Surgeon Vascular Surgery 03/11/22 documented as of this encounter
--- OUTSIDE RECORDS SUMMARY | 2024-06-18 18:03 | XMS_ITS | Clinical Summary ---
Author Organization [facility] Address [address] [place] [address]. [place], [place] [id number] [place] [address] Care Team Providers Care Jewel Hole Rough Opener Name Role Phone Bijal Galindo MD Unavailable [phone] Encounters Date Type Department Care Team Description 06/18/2024 [facility]phone [facility] [address] [place], [place] [id number] Fariba Odell, micro computer data processor from Last 3 Months Social History Tobacco Use Types Packs/Day Years Used Date Smoking Tobacco: Never Assessed Sex and Gender Information Value Date Recorded Sex Assigned at Not on file Legal Sex Male 8:42 AM CDT Gender Identity Not on file Sexual Orientation Not on file Plan of Treatment Upcoming Encounters Date Type Department Care Team (Late st Contact Info) Description 07/11/2024 1:30 PM MANAGER STATISTICAL Office Visit [facility] [facility], [facility] [address] [place], [place] [id number] Chavo Rich MD [facility]. [facility] [address] [place], [place] [id number] Health Maintenance Due Date Last Done Comments Hepatitis C 1963 DTaP, Tdap and Td Vaccines ( 1 - Tdap) 1965 Zoster Vaccines (1 of 2) 1996 Annual Medicare Wellness Visit 10/21/2011 Pneumococcal Vaccine: 65+ Ye ars (1 of 1 - PCV) 10/21/2011 RSV Immunization or 60+ Years (1 - 1-dose 75+ series) 2021 COVID-19 Vaccine ( - 2023-2 5 season) 2024 Influenza Adult (#1) 2024 Meningococcal Vaccine Aged Out No zohaib jignesh eligible based on patient's age to complete this topic RSV Immunizations Under 20 Months Aged Out No longer eligible based on patient's age to complete this topic Insurance [facility] MEDICARE Care Teams Jewel Hole Rough Opener Relationship Specialty Start Date End Date Bijal Galindo MD [address] [place] [phone] Referring Physician CARDIOVASCULAR DISEASE 04/23/24
--- OUTSIDE RECORDS SUMMARY | 2024-06-18 18:04 | XMS_ITS | Encounter Summary ---
Author Organization [facility] Address [address] [place] [address] Care Team Providers Care Radiology Equipment Servicer Name Role Phone Trey Pinedo MD Unavailable [phone] Christine Herzog MD Primary Care Provide r Albert Craft MD Unavailable [phone] Chintan Figueroa MD Unavailable [phone] Jameel Bloom DPM Unavailable [phone] Gadiel Genao MD Unavailable [phone] Encounter Details Date Type Department Care Team (Late st Contact Info) Description 04/20/2023 1:30 PM CDT Lab [facility] [address] [facility] [address] [place] [address] Polycythemia Social History Tobacco Use Types Packs/Day [...] often do you attend chur ch or jew services? Patient declined 09/28/2022 Do you belong to any clubs o r organizations such as religious groups, unions, fraternal or athletic groups, or [...] file 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 RN ONCOLOGY CLINICAL Gender Identity Not on file Sexual Orientation Straight 01/23/2021 10 :16 PM CDT documented as of this encounter Last Filed Vital Signs Vital Sign Reading Time Taken Comments Blood Pressure 125/69 04/20/2023 1:22 PM CDT Pulse 67 04/20/2023 1:22 PM CDT Temperature 36.3 ??C (97.4 ??F) 04/20/2023 1:22 PM CD T Respiratory Rate 20 04/20/2023 1:22 PM CDT Oxygen Saturation 96% 04/20/2023 1:22 PM CDT Inhaled Oxygen Concentration - - Weight 89.6 kg (197 lb 9.6 oz) 04/20/2023 1:22 P M CDT Height 170.2 cm (5' 7 ) 04/20/2023 1:22 PM CDT Body Mass Index 30.95 04/20/2023 1:22 PM CDT documented in this encounter Plan of Treatment Not on file documented as of this encounter Goals Goal Patient Goal Type Associated Problems Recent Progress Patient-Stated? Author GULSHAN General Goal - Patient schedules and keeps appointments with all recommended providers ACO Care Management On track(2022 11:14 AM RN ONCOLOGY CLINICAL) Sepideh Guo RN Note: Problem: Potential for [...] Date/Time Associated Diagnosis Comments DIFFERENTIAL AUTO Routine 04/20/2023 1:2 0 PM CDT Polycythemia CBC WITH AUTO DIFFERENTIAL Routine 04/20/2023 1:20 PM CDT Polycythemia documented in this encounter Results * (ABNORMAL) Differential, auto (04/20/2023 1:20 PM CDT) Neutrophil abs 5.1 1.7 - 6.5 K/cumm Imm gran abs 0.0 0.0 - 0.1 K/cumm [facility] ([place]) Lymphocyte abs 1.2 0.8 - 3.3 K/cumm [facility] ([place]) Monocyte abs 0.9(H) 0.2 - 0.8 K/cumm [facility] ([place]) Eosinophil abs 0.3 0.0 - 0.5 K/cumm [facility] ([place]) Basophil abs 0.1 0.0 - 0.1 K/cumm [facility] ([place]) Neutrophil pct 67.5 % [facility] ([place]) Comment: Interpretive Data Percent cell count reference ranges are not reported, since discordance with absolute values may lead to misinterpretation of CBC data. Current Interpretive Data was last revised on 2022. Imm gran pct 0.1 % [facility] ([place]) Comment: Interpretive Data Percent cell count reference ranges are not reported, since discordance with absolute values may lead to misinterpretation of CBC data. Current Interpretive Data was last revised on 2022. Lymphocyte pct 16.1 % [facility] ([place]ET[place]) Comment: Interpretive Data Percent cell count reference ranges are not reported, since discordance with absolute values may lead to misinterpretation of CBC data. Current Interpretive Data was last revised on 2022. Monocyte pct 11.3 % [facility] ([place]ET[place]) Comment: Interpretive Data Percent cell count reference ranges are not reported, since discordance with absolute values may lead to misinterpretation of CBC data. Current Interpretive Data was last revised on 2022. Eosinophil pct 3.5 % [facility] ([place]) Comment: Interpretive Data Percent cell count reference ranges are not reported, since discordance with absolute values may lead to misinterpretation of CBC data. Current Interpretive Data was last revised on 2022. Basophil pct 1.5 % [facility] ([place]ET[place]) Comment: Interpretive Data Percent cell count reference ranges are not reported, since discordance with absolute values may lead to misinterpretation of CBC data. Current Interpretive Data was last revised on 2022. Blood 04/20/2023 1:20 PM CDT 04/20/2023 1:21 PM CDT us Monika Castellano NP LAB BLOOD ORDERABLES Final Result [facility] ([place]ET[place]) [address] [facility] Department [place] [address] * (ABNORMAL) CBC with auto differential (04/20/2023 1:20 PM CDT) WBC 7.5 3.8 - 9.9 K/cumm Hgb 15.3 13.0 - 17.5 g/dL [facility] ([place]) Comment: Interpretive Data A reference range for this assay has not been established for patients with an unknown legal sex. Please refer to the laboratory test catalog for established sex-specific reference intervals. Current interpretive data was last revised on 2023. Hct 48.9 38.9 - 50.3 % [facility] ([place]) Comment: Interpretive Data A reference range for this assay has not been established for patients with an unknown legal sex. Please refer to the laboratory test catalog for established sex-specific reference intervals. Current interpretive data was last revised on 2023. Plt 178 150 - 400 K/cumm [facility] ([place]) MPV 10.2 9.1 - 12.3 fL [facility] ([place]) RBC 5.92(H) 4.30 - 5.80 M/cumm [facility] ([place]ET[place]) Comment: Interpretive Data A reference range for this assay has not been established for patients with an unknown legal sex. Please refer to the laboratory test catalog for established sex-specific reference intervals. Current interpretive data was last revised on 2023. MCV 82.6 81.3 - 96.4 fL [facility] ([place]) MCH 25.8(L) 27.1 - 33.3 pg [facility] ([place]) MCHC 31.3(L) 32.3 - 35.7 g/dL [facility] ([place]) RDW CV 15.7(H) 11.1 - 14.9 % [facility] ([place]) RDW SD 47.0 35.7 - 48.1 fL [facility] ([place]) NRBC abs Not Measured 0.00 - 0.01 K/cumm [facility] ([place]) Blood 04/20/2023 1:20 PM CDT 04/20/2023 1:21 PM CDT us Monika Castellano TRAVEL CONSULTANT LAB BLOOD ORDERABLES Final Result [facility] ([place]) [address] [facility] Department [place] [address] documented in this encounter Visit Diagnoses Diagnosis Polycythemia Polycythemia, secondary documented in this encounter Orders Appointment Requests Count Last Ordered Date Fi rst Ordered Date ONCBCN LAB APPOINTMENT 1 04/20/2023 documented in this encounter Care Teams Radiology Equipment Servicer Relationship Specialty Start Date End Date Christine Herzog MD [address] [facility] [address] [place] [address] PCP - General Internal Medicine 12/02/21 Trey Pinedo MD [address] [facility] [address] [place] [address] Consulting Physician Neurology 05/09/19 Albert Craft MD [address] [facility] [address] [place] [address] Consulting Physician Gastroenterology 03/11/22 Chintan Figueroa MD [address] [place] [address] [address] Consulting Physician Hematology and Oncology 03/11/22 Jameel Bloom DPM [address] [place] [address] Consulting Physician Orthotics 03/11/22 Gadiel Genao MD [address] [place] [address] Surgeon Vascular Surgery 03/11/22 documented as of this encounter
--- OUTSIDE RECORDS SUMMARY | 2024-06-18 18:04 | XMS_ITS | Encounter Summary ---
Author Organization [facility] Healthcare Address [address] [place] [address] Care Team Providers Care Rn Clinical Trials Name Role Phone Trey Pinedo MD Unavailable [phone] Christine Herzog MD Primary Care Provide r Albert Craft MD Unavailable [phone] Chintan Figueroa MD Unavailable [phone] Jameel Bloom DPM Unavailable [phone] Gadiel Genao MD Unavailable [phone] Encounter Details Date Type Department Care Team (Late st Contact Info) Description 03/23/2023 10:30 AM CDT [address] [address] Healthcare maintenance Social History Tobacco Use Types Packs/Day Years [...] often do you attend chur ch or hoahaoism services? Patient declined 09/28/2022 Do you belong to any clubs o r organizations such as baptism groups, unions, fraternal or athletic groups, or [...] place to sleep or slept in a long term (including now)? No 09/28/2022 Personal Safety Answer Date Recorded Have you ever been in or are you currently in a harmful physical or emotional relationship or is someone making you feel afraid or unsafe? Denies 09/25/2022 Sex and Gender Information Value Date Recorded Sex Assigned at Not on file 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 FIELD COIL WINDER Gender Identity Not on file Sexual Orientation Straight 01/23/2021 10 :16 PM CDT documented as of this encounter Plan of Treatment Not on file documented as of this encounter Goals Goal Patient Goal Type Associated Problems Recent Progress Patient-Stated? Author GULSHAN General Goal - Patient schedules and keeps appointments with all recommended providers ACO Care Management On track(2022 11:14 AM FIELD COIL WINDER) Sepideh Guo RN Note: Problem: Potential for [...] Priority Date/Time Associated Diagnosis Comments EGFR Routine 03/23/2023 10:43 AM CDT Healthcare maintenance DIFFERENTIAL AUTO Routine 03/23/2023 10: 43 AM CDT Healthcare maintenance CBC WITH AUTO DIFFERENTIAL Routine 03/23/2023 10:43 AM CDT Healthcare maintenance HEMOGLOBIN A1C Routine 03/23/2023 10:43 AM CDT Healthcare maintenance LIPID PANEL Routine 03/23/2023 10:43 AM CDT Healthcare maintenance COMPREHENSIVE METABOLIC PANEL Routine 03/23/2023 10:43 AM CDT Healthcare maintenance documented in this encounter Results * eGFR (03/23/2023 10:43 AM CDT) Pathologist [facility] eGFR 56 mL/min/1. 73 m2 [facility] ([place]) Comment: Interpretive Data Reference Interval Normal ?>/= [...] interpretive data was last reviewed 2021. Blood 03/23/2023 10:4 3 AM CDT 03/23/2023 10:51 AM CDT us Christine Herzog MD LAB BLOOD ORDERABLES Final Result RUBENS CARMICHAEL ([place]) 1 [facility] [place] [address] * (ABNORMAL) Differential, auto (03/23/2023 10:43 AM CDT) Neutrophil abs 4.2 1.7 - 6.5 K/cumm [facility] ([place]) Imm gran abs 0.0 0.0 - 0.1 K/cumm [facility] ([place]) Lymphocyte abs 1.7 0.8 - 3.3 K/cumm [facility] ([place]) Monocyte abs 0.9(H) 0.2 - 0.8 K/cumm [facility] ([place]) Eosinophil abs 0.3 0.0 - 0.5 K/cumm [facility] ([place]) Basophil abs 0.1 0.0 - 0.1 K/cumm [facility] ([place]) Neutrophil pct 58.3 % [facility] ([place]) Comment: Interpretive [...] was last revised on 2017. Lymphocyte pct 23.1 % [facility] ([place]) Comment: Interpretive Data Percent cell count reference ranges are not reported, since discordance with absolute values may lead to misinterpretation of CBC data. Current Interpretive Data was last revised on 2017. Monocyte pct 12.2 % [facility] ([place]) Comment: Interpretive Data Percent cell count reference ranges are not reported, since discordance with absolute values may lead to misinterpretation of CBC data. Current Interpretive Data was last revised on 2017. Eosinophil pct 4.3 % [facility] ([place]) Comment: Interpretive Data Percent cell count reference ranges are not reported, since discordance with absolute values may lead to misinterpretation of CBC data. Current Interpretive Data was last revised on 2017. Basophil pct 1.8 % [facility] ([place]) Comment: Interpretive Data Percent cell count reference ranges are not reported, since discordance with absolute values may lead to misinterpretation of CBC data. Current Interpretive Data was last revised on 2017. Blood 03/23/2023 10:4 3 AM CDT 03/23/2023 10:51 AM CDT Christine Herzog MD LAB BLOOD ORDERABLES Final Result Performing Organization Address [facility] Co de Phone Number RUBENS CARMICHAEL ([place]) 1 [facility] [place] [employer] [place] [address] * (ABNORMAL) Hemoglobin A1c (03/23/2023 10:43 AM CDT) Hgb A1C 6.1(H) 4.0 - 5.6 % [facility]UBENS CARMICHAEL ([place]) Estimated Average Glucose 128 mg/dL [facility]UB[facility] CAR[facility] ([place]) Comment: The ADA recommends reporting an estimated Average Glucose (eAG) with all Hemoglobin A1c results using the equation derived from a study of 507 normal and diabetic adults. ??Minority populations were underrepresented and children were not included. ?? (Diabetes Care 31:2509-0818, 2008). ??The eAG is not equivalent to a fasting glucose. Blood 03/23/2023 10:4 3 AM CDT 03/23/2023 10:51 AM CDT Narrative [facility] ([place]) - 03/23/2023 11:47 AM CDT Fasting . Patient will have done 1-2 weeks prior to apt on 03-23-23 Christine Herzog MD LAB BLOOD ORDERABLES Final Result Performing Organization Address [facility] Phone Number RUBENS CARMIC[facility]EL ([place]) 1 [facility] [place] [place] [address] * Lipid panel (03/23/2023 10:43 AM CDT) Cholesterol 141 30 - 199 mg/dL [facility] ([place]) Comment: Interpretive Data [...] Data was last revised on 2018. Triglycerides 95 <=149 mg/dL [facility] CAR[facility] ([place]) Comment: Interpretive [...] Data was last revised on 2018. HDL 41 >=40 mg/dL RUBENS SCHROEDER) Comment: Interpretive Data [...] was last revised on 2018. LDL, calculated 81 <=129 mg/dL [facility]UB[facility] SCHROEDER) Comment: Interpretive Data Ages < or = 19 years ??Acceptable: ? <110 mg/dL ??Borderline high: ??110-129 mg/dL ??High: ?>or= 130 mg/dL Ages > or = 20 years ??Optimal: ? <100 mg/dL ??Near optimal: ?100-129 mg/dL ??Borderline high: ?? 130-159 mg/dL ??High: ?>160 mg/dL Literature References: 1. Expert Panel on Integrated Guidelines for Cardiovascular Health and Risk Reduction in Children and Adolescents. Pediatrics 2011;128:S213 2. NCEP Expert Panel. Circulation 2004;110:227 Current Interpretive Data was last revised on 2018. Non-HDL Cholesterol 100 mg/dL RUBENS CARMICHAEL ([place]) Comment: Interpretive Data [...] ratio 3 JEAN CARLOS CARMICHAEL ([place]) Blood 03/23/2023 10:4 3 AM CDT 03/23/2023 10:51 AM CDT Narrative RUBENS CARMICHAEL ([place]) - 03/23/2023 11:33 AM CDT Patient will have done 1-2 weeks prior to apt on 03-23-23 us Christine Herzog MD LAB BLOOD ORDERABLES Final Result [facility] ([place]) 1 [facility] Department [place] [address] * (ABNORMAL) Comprehensive metabolic panel (03/23/2023 10:43 AM CDT) Sodium 138 135 - 145 mmol/L [facility] ([place]) Potassium, pl 4.3 3.3 - 4.9 mmol/L [facility] ([place]) Chloride 106 97 - 110 mmol/L [facility] ([place]) CO2 22 22 - 32 mmol/L [facility] ([place]) Anion gap 10 2 - 15 mmol/L [facility] ([place]) BUN 29(H) 6 - 25 mg/dL [facility] ([place]) Creatinine 1.32(H) 0.80 - 1.30 mg/dL [facility] ([place]) Glucose 98 70 - 199 mg/dL [facility] ([place]) [...] 1.2 mg/dL [facility] ([place]) Protein, pl 6.8 6.5 - 8.5 g/dL [facility] ([place]) Albumin 4.1 3.5 - 5.0 g/dL [facility] ([place]) Alk phos 83 40 - 130 Units/L [facility] ([place]) ALT 13 7 - 55 Units/L [facility] ([place]) AST 14 10 - 50 Units/L [facility] ([place]) Blood 03/23/2023 10:4 3 AM CDT 03/23/2023 10:51 AM CDT Narrative [facility] ([place]) - 03/23/2023 11:33 AM CDT Patient will have done 1-2 weeks prior to apt on 03-23-23 Christine Herzog MD LAB BLOOD ORDERABLES Final Result [facility] ([place]) 1 [facility] Department [place] [address] * (ABNORMAL) CBC with auto differential (03/23/2023 10:43 AM CDT) WBC 7.1 3.8 - 9.9 K/cumm [facility] ([place]) Hgb 15.0 13.0 - 17.5 g/dL [facility] ([place]) Hct 48.3 38.9 - 50.3 % [facility] ([place]) Plt 190 150 - 400 K/cumm [facility] ([place]) MPV 11.3 9.1 - 12.3 fL [facility] ([place]) RBC 5.88(H) 4.30 - 5.80 M/cumm [facility] ([place]) MCV 82.1 81.3 - 96.4 fL [facility] ([place]) MCH 25.5(L) 27.1 - 33.3 pg [facility] ([place]) MCHC 31.1(L) 32.3 - 35.7 g/dL [facility] ([place]) RDW CV 15.1(H) 11.1 - 14.9 % [facility] ([place]) RDW SD 44.8 35.7 - 48.1 fL [facility] ([place]) NRBC abs 0.00 0.00 - 0.01 K/cumm [facility] ([place]) Blood 03/23/2023 10:4 3 AM CDT 03/23/2023 10:51 AM CDT Narrative [facility] ([place]) - 03/23/2023 10:57 AM CDT Patient will have done 1-2 weeks prior to apt on 03-23-23 Christine Herzog MD LAB BLOOD ORDERABLES Final Result RUBENS CARMICHAEL ([place]) 1 [facility] Department [place] [address] documented in this encounter Visit Diagnoses Diagnosis Healthcare maintenance documented in this encounter Care Teams Rn Clinical Trials Relationship Specialty Start Date End Date Christine Herzog MD [address] [facility] [address] [place] [address] PCP - General Internal Medicine 12/02/21 Trey Pinedo MD [address] [place] [address] [address] [place] [address] Consulting Physician Neurology 05/09/19 Albert Craft MD [address] [facility] [address] [place] [address] Consulting Physician Gastroenterology 03/11/22 Chintan Figueroa MD [address] [facility] [address] [place] [address] Consulting Physician Hematology and Oncology 03/11/22 Jameel Bloom DPM [address] [place] [address] Consulting Physician Orthotics 03/11/22 Gadiel Genao MD [address] [place] [address] Surgeon Vascular Surgery 03/11/22 documented as of this encounter
--- OUTSIDE RECORDS SUMMARY | 2024-06-18 18:04 | XMS_ITS | Encounter Summary ---
Author Organization [facility] Healthcare Address [address] [place] [address] Care Team Providers Care Evidence Specialist Name Role Phone Trey Pinedo MD Unavailable [phone] Christine Herzog MD Primary Care Provide r Albert Craft MD Unavailable [phone] Chintan Figueroa MD Unavailable [phone] Jameel Bloom DPM Unavailable [phone] Gadiel Genao MD Unavailable [phone] Reason for Visit * Reason Comments Phlebotomy Encounter Details Date Type Department Care Team (Late st Contact Info) Description 09/21/2023 3:00 PM CDT [facility] [address] [place] [phone] Polycythemia (Primary Dx) Social History Tobacco Use [...] often do you attend chur ch or anabaptist services? Patient declined 09/28/2022 Do you belong to any clubs o r organizations such as sabianism groups, unions, fraternal or athletic groups, or [...] place to sleep or slept in a fci (including now)? No 09/28/2022 Personal Safety Answer Date Recorded Have you ever been in or are you currently in a harmful physical or emotional relationship or is someone making you feel afraid or unsafe? Denies 09/25/2022 Sex and Gender Information Value Date Recorded Sex Assigned at Not on file 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 STUMPER FELLER Gender Identity Not on file Sexual Orientation Straight 01/23/2021 10 :16 PM CDT documented as of this encounter Last Filed Vital Signs Vital Sign Reading Time Taken Comments Blood Pressure 99/52 09/21/2023 4:06 PM CDT Pulse 58 09/21/2023 4:06 PM CDT Temperature - - Respiratory Rate - - Oxygen Saturation - - Inhaled Oxygen Concentration - - Weight - - Height - - Body Mass Index - - documented in this encounter Nursing Notes * Millicent Amor RN - 09/21/2023 3:00 PM CDT Patient presented to the infusion center today for a phlebotomy. Vitals and labs reviewed. HCT 46.8. Phlebotomy performed in the left arm via donormatic, only able to obtain 82ml. Moved to right arm and able to performed the phlebotomy and removed 400ml. Tolerated well. Patient refused anything to eat or drink. Monitored for 15 minutes, repeat vitals stable. AVS printed and reviewed with patient.Patient had no further questions at this time and left in stable condition. documented in this encounter Plan of Treatment Not on file documented as of this encounter Goals Goal Patient Goal Type Associated Problems Recent Progress Patient-Stated? Author GULSHAN General Goal - Patient schedules and keeps appointments with all recommended providers ACO Care Management On track(2022 11:14 AM STUMPER FELLER) No Sepideh Hi, RN Note: Problem: Potential for medical complications [...] Orde red Date ONCBCN THERAPEUTIC PHLEBOTOMY 1 09/21/2023 Appointment Requests Count Last Ordered Date Fi rst Ordered Date ONCBCN THERAPEUTIC PHLEBOTOM Y APPOINTMENT REQUEST 1 09/21/2023 documented in this encounter Care Teams Evidence Specialist Relationship Specialty Start Date End Date Christine Herzog MD [address] [facility] [address] [place] [address] PCP - General Internal Medicine 12/02/21 Trey Pinedo MD [address] [place] [address] [address] [place] [address] Consulting Physician Neurology 05/09/19 Albert Craft MD [address] [facility] [place] [address] Consulting Physician Gastroenterology 03/11/22 Chintan Figueroa MD [address] [facility] [address] [place] [address] Consulting Physician Hematology and Oncology 03/11/22 Jameel Bloom DPM [address] [facility] [place] [address] Consulting Physician Orthotics 03/11/22 Gadiel Genao MD [address] [place] [address] Surgeon Vascular Surgery 03/11/22 documented as of this encounter
--- OUTSIDE RECORDS SUMMARY | 2024-06-18 18:04 | XMS_ITS | Encounter Summary ---
Author Organization [facility] Address [address] [place] [address] Phone Care Team Providers Care Hotel Or Motel Manager Name Role Phone Trey Pinedo MD Unavailable Christine Herzog MD Primary Care Provide r Albert Craft MD Unavailable [phone] Chintan Figueroa MD Unavailable Jameel Bloom DPM Unavailable [phone] Gadiel Genao MD Unavailable Reason for Visit * Reason Comments Follow-up Polycythemia Encounter Details Date Type Department Care Team (Late st Contact Info) Description 05/22/2023 10:45 AM INSPECTOR FINAL ASSEMBLY ELECTRICAL Office Visit [facility] Oncology [address] [place] [address] Medical Office [address] [place] [address] Chintan Figueroa MD [address] [place] [address] [address] [place] [address] Polycythemia Social History Tobacco Use Types Packs/Day [...] often do you attend chur ch or holiness services? Patient declined 09/28/2022 Do you belong to any clubs o r organizations such as hindu groups, unions, fraternal or athletic groups, or [...] place to sleep or slept in a chcf (including now)? No 09/28/2022 Personal Safety Answer Date Recorded Have you ever been in or are you currently in a harmful physical or emotional relationship or is someone making you feel afraid or unsafe? Denies 09/25/2022 Sex and Gender Information Value Date Recorded Sex Assigned at Not on file 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 INSPECTOR FINAL ASSEMBLY ELECTRICAL Gender Identity Not on file Sexual Orientation Straight 01/23/2021 10 :16 PM CDT documented as of this encounter Last Filed Vital Signs Vital Sign Reading Time Taken Comments Blood Pressure 156/60 05/22/2023 10:56 AM INSPECTOR FINAL ASSEMBLY ELECTRICAL Pulse 50 05/22/2023 10:56 AM INSPECTOR FINAL ASSEMBLY ELECTRICAL Temperature 35.9 ??C (96.6 ??F) 05/22/2023 10:[address] Respiratory Rate - - Oxygen Saturation 98% 05/22/2023 10:56 AM INSPECTOR FINAL ASSEMBLY ELECTRICAL Inhaled Oxygen Concentration - - Weight 88.1 kg (194 lb 3.2 oz) 05/22/2023 10:56 AM INSPECTOR FINAL ASSEMBLY ELECTRICAL Height - - Body Mass Index 30.42 04/20/2023 1:22 PM CDT documented in this encounter Progress Notes * Monika Castellano, HOTEL YARDPERSON - 05/22/2023 10:45 AM CST Images from the original note were not included. Patient Identifying Data: Villa Zuniga is a 77 y.o. male seen in followup today DIAGNOSIS: [...] grams/deciliter. Patient reported he established care with finisher wallboard and plasterboard, Dr. Hoskins who recommended regular phlebotomy to [...] today for reassessment of his erythrocytosis. He looks well today. He feels well. Son is present for visit. No other concerns. Review of Systems Review of systems positive for symptoms as per interval history. All other review of systems negative. Objective Vitals: Vitals: 05/22/23 1056 BP: 156/60 BP Location: Right arm Pulse: 50 Temp: (!) 35.9 ??C (96.6 ??F) TempSrc: Skin SpO2: 98% Weight: 88.1 kg (194 lb 3.2 oz) PHYSICAL EXAM: Physical Exam -Using walker, [...] Lab History Latest Ref Rng & Units 01/26/2023 03/23/2023 10:43 04/20/2023 13:20 05/22/2023 10:40 Labs - Hematology WBC 3.8 - 9.9 K/cumm 7.3 7.1 7.5 7.1 Total Hb, POC 13.0 - 17.5 g/dL 14.7 15.0 15.3 14.4 Hct 38.9 - 50.3 % 46.5 48.3 48.9 46.5 Plt 150 - 400 K/cumm 187 190 178 189 Neutrophil abs 1.7 - 6.5 K/cumm 4.6 4.2 5.1 4.5 Lymphocytes, abs 0.8 - 3.3 K/cumm 1.5 1.7 1.2 1.5 Details More values are hidden. Newest values shown. Go to activity for more data. Chemistry Component Value Date/Time SODIUM 140 05/22/2023 1040 POTASSIUM 4.0 05/22/2023 1040 POTASSIUM 3.8 03/22/2017 0925 CHLORIDE 103 05/22/2023 1040 CO2 25 05/22/2023 1040 BUNSER 27 (H) 05/22/2023 1040 CREATININE 1.30 05/22/2023 1040 GLUCOSE 150 05/22/2023 1040 Component Value Date/Time CALCIUM 8.9 05/22/2023 1040 ALKPHOS 94 05/22/2023 1040 AST 16 05/22/2023 1040 ALT 17 05/22/2023 1040 BILITOT 0.4 05/22/2023 1040 Tumor Marker History Latest Ref Rng & Units 08/06/2022 01/26/2023 12:39 Tumor Markers PSA <=6.20 ng/mL 2.31 NT-proBNP <=450 pg/mL 2,211 Trop T hs <=22 ng/L 22 Details More abnormal values are hidden. Newest values shown. Go to activity for more data. No results found. 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 Hematocrit is 46.5. PLAN: Receive phlebotomy today. Continue phlebotomies q 2 months. Hold for HCT < 45%. Goal is to keep HCT down to approximately 45-50%. He will return in 6 months for office visit. He knows to call the office with any questions or concerns I have discussed the assessment and plan of care of this patient with my collaborating physician. NIURKA Sidhu Nurse Practitioner Medical Oncology [facility] ECTOR FINAL ASSEMBLY ELECTRICAL documented in this encounter Miscellaneous Notes * Addendum Note - Alla Huerta CLT - 05/22/2023 10:45 AM CSTAddended by: ALLA HUERTA on: 07/27/2023 01:52 PM Modules accepted: Orders ECTOR FINAL ASSEMBLY ELECTRICAL documented in this encounter Plan of Treatment Not on file documented as of this encounter Goals Goal Patient Goal Type Associated Problems Recent Progress Patient-Stated? Author GULSHAN General Goal - Patient schedules and keeps appointments with all recommended providers ACO Care Management On track(2022 11:14 AM INSPECTOR FINAL ASSEMBLY ELECTRICAL) Sepideh Guo RN Note: Problem: Potential for [...] Ordered Date ONCBCN CLINIC APPOINTMENT REQUEST 1 023 documented in this encounter Care Teams Hotel Or Motel Manager Relationship Specialty Start Date End Date Christine Herzog MD [address] [facility] [address] [place] [address] PCP - General Internal Medicine 12/02/21 Trey Pinedo MD [address] [facility] [address] [place] [address] Consulting Physician Neurology 05/09/19 Albert Crfat MD [address] [place] [address] [address] [place] [address] Consulting Physician Gastroenterology 03/11/22 Chintan Figueroa MD [address] [place] [address] [address] [place] [address] Consulting Physician Hematology and Oncology 03/11/22 Jameel Bloom DPM [address] [place] [address] Consulting Physician Orthotics 03/11/22 Gadiel Genao MD [address] [place] [address] Surgeon Vascular Surgery 03/11/22 documented as of this encounter
--- OUTSIDE RECORDS SUMMARY | 2024-06-18 18:04 | XMS_ITS | Encounter Summary ---
Author Organization [facility] Healthcare Address [address] [place] [address] Care Team Providers Care Gem Stone Cutter Name Role Phone Trey Pinedo MD Unavailable [phone] Christine Herzog MD Primary Care Provide r Albert Craft MD Unavailable [phone] Chintan Figueroa MD Unavailable [phone] Jameel Bloom DPM Unavailable [phone] Gadiel Genao MD Unavailable [phone] Reason for Visit * Reason Comments OP Infusion Here for phlebotomy. Hematocrit 48.9. Encounter Details Date Type Department Care Team (Late st Contact Info) Description 04/20/2023 2:00 PM CDT Infusion [facility] [address] [place] [address] Polycythemia (Primary Dx) Social History Tobacco Use [...] often do you attend chur ch or faith services? Patient declined 09/28/2022 Do you belong to any clubs o r organizations such as jainism groups, unions, fraternal or athletic groups, or [...] on file 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 WINDOWS PHONE DEVELOPER Gender Identity Not on file Sexual Orientation Straight 01/23/2021 10 :16 PM CDT documented as of this encounter Nursing Notes * Araseli Orellana RN - 04/20/2023 2:00 PM CDT Patient here in the ambulatory mode wt the assistance of a walker, after having his CBC obtained. His Hematocrit 48.9 today. Assessment completed. Phlebotomy started at 13:30 via a #20G intima in theleft top forearm. At 14:10 500 ml of whole blood was removed using 60 ml syringes. Patient tolerated the procedure without acute, ill effects. He rested per chair, sitting in the upright position. Intima was removed. Light pressure was held to site with a cotton ball, that was wrapped with Coband. His VS taken post procedure T: 97.3F,P: 73, R: 20 and BP: 110/62 He was given a copy of his AVS and he left in stable condition, in the ambulatory mode. documented in this encounter Plan of Treatment Not on file documented as of this encounter Goals Goal Patient Goal Type Associated Problems Recent Progress Patient-Stated? Author GULSHAN General Goal - Patient schedules and keeps appointments with all recommended providers ACO Care Management On track(2022 11:14 AM WINDOWS PHONE DEVELOPER) Sepideh Guo, SUE Note: Problem: Potential for [...] Orde red Date ONCBCN THERAPEUTIC PHLEBOTOMY 1 04/20/2023 Appointment Requests Count Last Ordered Date Fi rst Ordered Date ONCBCN THERAPEUTIC PHLEBOTOM Y APPOINTMENT REQUEST 1 04/20/2023 documented in this encounter Care Teams Gem Stone Cutter Relationship Specialty Start Date End Date Christine eHrzog MD [address] [facility] [place] [address] PCP - General Internal Medicine 12/02/21 Trey Pinedo MD [address] [place] [address] [address] [place] [address] Consulting Physician Neurology 05/09/19 Albert Craft MD [address] [place] [address] [place] [address] Consulting Physician Gastroenterology 03/11/22 Chintan Figueroa MD [address] [facility] [place] [address] Consulting Physician Hematology and Oncology 03/11/22 Jameel Bloom DPM [address] [place] [address] [place] [address] Consulting Physician Orthotics 03/11/22 Gadiel Genao MD [address] [place] [address] Surgeon Vascular Surgery 03/11/22 documented as of this encounter
--- OUTSIDE RECORDS SUMMARY | 2024-06-18 18:04 | XMS_ITS | Encounter Summary ---
Author Organization [facility] Healthcare Address [address] [place] [address] Care Team Providers Care Various Exceptionalities Teacher Name Role Phone Trey Pinedo MD Unavailable [phone] Christine Herzog MD Primary Care Provide r Albert Craft MD Unavailable [phone] Chintan Figueroa MD Unavailable [phone] Jameel Bloom DPM Unavailable [phone] Gadiel Genao MD Unavailable [phone] Encounter Details Date Type Department Care Team (Late st Contact Info) Description 11/04/2023 11:00 AM CDT [address] [address] Current use of terminal operator anticoagulation; Essential hypertension; Pure hypercholesterolemia; Paroxysmal atrial fibrillation (CMS/HCC) (HCC); Bradycardia; Pulmonary hypertension (HCC); Biatrial enlargement; Nonrheumatic tricuspid valve regurgitation; Mixed hyperlipidemia; 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 Patient declined 09/28/2022 Do you belong to any clubs o r organizations such as hoahaoism groups, unions, fraternal or athletic groups, or [...] on file 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 CLAIMS SPECIALIST Gender Identity Not on file Sexual Orientation Straight 01/23/2021 10 :16 PM CDT documented as of this encounter Plan of Treatment Not on file documented as of this encounter Goals Goal Patient Goal Type Associated Problems Recent Progress Patient-Stated? Author GULSHAN General Goal - Patient schedules and keeps appointments with all recommended providers ACO Care Management On track(2022 11:14 AM CLAIMS SPECIALIST) No Sepideh Hi RN Note: Problem: Potential [...] Priority Date/Time Associated Diagnosis Comments EGFR Routine 11/04/2023 11:12 AM CDT Essential hypertension DIFFERENTIAL AUTO Routine 11/04/2023 11:12 AM CDT Current use of custodial anticoagulation CBC WITH AUTO DIFFERENTIAL Routine 11/04/2023 11:12 AM CDT Current use of custodial anticoagulation LIPID PANEL Routine 11/04/2023 11:12 AM CDT Pure hypercholesterolemia COMPREHENSIVE METABOLIC PANEL Routine 11/04/2023 11:12 AM CDT Essential hypertension documented in this encounter Results * (ABNORMAL) eGFR (11/04/2023 11:12 AM CDT) eGFR 50(L) >=60 mL/min/1. 73 [...] interpretive data was last reviewed 2021. Blood 11/04/2023 11:1 2 AM CDT 11/04/2023 11:36 AM CDT us Bijal Galindo MD LAB BLOOD ORDERABLES Final R esult [facility]) 1 [employer] [facility] Department [place] [address] [phone] * (ABNORMAL) Differential, auto (11/04/2023 11:12 AM CDT) Neutrophil abs 5.1 1.5 - 6.5 K/cumm Imm gran abs 0.0 0.0 - 0.1 K/cumm [facility] ([facility]) Lymphocyte abs 1.5 0.8 - 3.3 K/cumm [facility] ([facility]) Monocyte abs 0.9(H) 0.2 - 0.8 K/cumm [facility] ([facility]) Eosinophil abs 0.2 0.0 - 0.5 K/cumm [facility] ([facility]) Basophil abs 0.2(H) 0.0 - 0.1 K/cumm [facility] ([facility]) Neutrophil pct 64.1 % [facility] ([facility]) Comment: Interpretive Data Percent cell count reference ranges are not reported, since discordance with absolute values may lead to misinterpretation of CBC data. Current Interpretive Data was last revised on 2017. Imm gran pct 0.4 % [facility] ([facility]) Comment: Interpretive Data Percent cell count reference ranges are not reported, since discordance with absolute values may lead to misinterpretation of CBC data. Current Interpretive Data was last revised on 2017. Lymphocyte pct 19.5 % [facility] ([facility]) Comment: Interpretive Data Percent cell count reference ranges are not reported, since discordance with absolute values may lead to misinterpretation of CBC data. Current Interpretive Data was last revised on 2017. Monocyte pct 11.1 % [facility] ([facility]) Comment: Interpretive Data Percent cell count reference ranges are not reported, since discordance with absolute values may lead to misinterpretation of CBC data. Current Interpretive Data was last revised on 2017. Eosinophil pct 2.9 % [facility] ([facility]) Comment: Interpretive Data Percent cell count reference ranges are not reported, since discordance with absolute values may lead to misinterpretation of CBC data. Current Interpretive Data was last revised on 2017. Basophil pct 2.0 % [facility] ([facility]) Comment: Interpretive Data Percent cell count reference ranges are not reported, since discordance with absolute values may lead to misinterpretation of CBC data. Current Interpretive Data was last revised on 2017. Blood 11/04/2023 11:1 2 AM CDT 11/04/2023 11:37 AM CDT us Bijal Galindo MD LAB BLOOD ORDERABLES Final R esult [facility] ([facility]) 1 [facility] Department [place] [address] * (ABNORMAL) Lipid panel (11/04/2023 11:12 AM CDT) Cholesterol 129 30 - 199 mg/dL Comment: Interpretive Data [...] Data was last revised on 2018. Triglycerides 126 <=149 mg/dL [facility] ([facility]) Comment: Interpretive [...] Data was last revised on 2018. HDL 39(L) >=40 mg/dL [facility] Antonio ([facility]) Comment: Interpretive [...] was last revised on 2018. LDL, calculated 65 <=129 mg/dL [facility] ([facility]) Comment: Interpretive [...] was last revised on 2018. Non-HDL Cholesterol 90 mg/dL [facility] ([facility]) Comment: Interpretive Data Ages < or [...] on 2018. Chol/HDL ratio 3 JEAN CARLOS Nicholas [facility] ([facility]) Blood 11/04/2023 11:1 2 AM CDT 11/04/2023 11:36 AM CDT us Bijal Galindo MD LAB BLOOD ORDERABLES Final R esult [facility] ([facility]) 1 [facility] Department of Laboratories [place], [place] [id number] * (ABNORMAL) Comprehensive metabolic panel (11/04/2023 11:12 AM CDT) Sodium 141 135 - 145 mmol/L Potassium, pl 4.6 3.3 - 4.9 mmol/L [facility] ([facility]) Chloride 105 97 - 110 mmol/L [facility] ([facility]) CO2 26 22 - 32 mmol/L [facility] ([facility]) Anion gap 9 2 - 15 mmol/L [facility] ([facility]) BUN 25 6 - 25 mg/dL [facility] Creatinine 1.43(H) 0.80 - 1.30 mg/dL [facility] ([facility]) Glucose 117 70 - 199 mg/dL [facility] ([facility]) Comment: Interpretive Data Fasting glucose [...] interpretive data was last revised 2022. Calcium 9.1 8.5 - 10.3 mg/dL [facility] ([facility]) Bilirubin, total 0.5 0.1 - 1.2 mg/dL [facility] ([facility]) Protein, pl 6.8 6.5 - 8.5 g/dL [facility] ([facility]) Albumin 4.1 3.5 - 5.0 g/dL [facility] ([facility]) Alk phos 86 40 - 130 Units/L [facility] ([facility]) ALT 13 7 - 55 Units/L [facility] ([facility]) AST 14 10 - 50 Units/L [facility] ([facility]) Blood 11/04/2023 11:1 2 AM CDT 11/04/2023 11:36 AM CDT us Bijal Galindo MD LAB BLOOD ORDERABLES Final R esult [facility] 1 [facility] Department [place] [address] * (ABNORMAL) CBC with auto differential (11/04/2023 11:12 AM CDT) WBC 7.9 3.8 - 9.9 K/cumm Hgb 12.9(L) 13.0 - 17.5 g/dL [facility] ([facility]) Hct 43.3 38.9 - 50.3 % [facility] ([facility]) Plt 228 150 - 400 K/cumm [facility] ([facility]) MPV 9.9 9.1 - 12.3 fL [facility] ([facility]) RBC 5.63 4.30 - 5.80 M/cumm [facility] ([facility]) MCV 76.9(L) 81.3 - 96.4 fL [facility] ([facility]) MCH 22.9(L) 27.1 - 33.3 pg [facility] ([facility]) MCHC 29.8(L) 32.3 - 35.7 g/dL [facility] ([facility]) RDW CV 17.1(H) 11.1 - 14.9 % [facility] ([facility]) RDW SD 46.0 35.7 - 48.1 fL [facility] ([facility]) NRBC abs 0.00 0.00 - 0.01 K/cumm [facility] ([facility]) Blood 11/04/2023 11:1 2 AM CDT 11/04/2023 11:37 AM CDT us Bijal Galindo MD LAB BLOOD ORDERABLES Final R esult [facility] ([facility]) 1 [facility] Department [place] [address] documented in this encounter Visit Diagnoses Diagnosis Current use of terminal operator anticoagulation Essential hypertension Unspecified essential hypertension Pure hypercholesterolemia Paroxysmal atrial fibrillation (CMS/HCC) (HCC) Atrial fibrillation Bradycardia Other specified cardiac dysrhythmias Pulmonary hypertension (HCC) 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 Mixed hyperlipidemia 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 documented in this encounter Care Teams Various Exceptionalities Teacher Relationship Specialty Start Date End Date Christine Herzog MD [address] [facility] [address] [place] [address] PCP - General Internal Medicine 12/02/21 Trey Pinedo MD [address] [facility] [address] [place] [address] Consulting Physician Neurology 05/09/19 Albert Craft MD [address] [facility] [address] [place] [address] Consulting Physician Gastroenterology 03/11/22 Chintan Figueroa MD [address] [place] [address] [address] Consulting Physician Hematology and Oncology 03/11/22 Jameel Bloom DPM [address] [place] [address] Consulting Physician Orthotics 03/11/22 Gadiel Genao MD [address] [place] [address] Surgeon Vascular Surgery 03/11/22 documented as of this encounter
--- OUTSIDE RECORDS SUMMARY | 2024-06-18 18:04 | XMS_ITS | Encounter Summary ---
Author Organization [facility] Healthcare Address [address] [place] [address] Care Team Providers Care Conduit Helper Name Role Phone Trey Pinedo MD Unavailable [phone] Christine Herzog MD Primary Care Provide r Albert Craft MD Unavailable [phone] Chintan Figueroa MD Unavailable [phone] Jameel Bloom DPM Unavailable [phone] Gadiel Genao MD Unavailable [phone] Reason for Visit * Reason Comments Phlebotomy Encounter Details Date Type Department Care Team (Late st Contact Info) Description 07/27/2023 1:45 PM [facility] [address] [place] [phone] Polycythemia (Primary Dx) Social History Tobacco Use [...] often do you attend chur ch or church services? Patient declined 09/28/2022 Do you belong to any clubs o r organizations such as mormonism groups, unions, fraternal or athletic groups, or [...] place to sleep or slept in a alf (including now)? No 09/28/2022 Personal Safety Answer Date Recorded Have you ever been in or are you currently in a harmful physical or emotional relationship or is someone making you feel afraid or unsafe? Denies 09/25/2022 Sex and Gender Information Value Date Recorded Sex Assigned at Not on file 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 TELESCOPE OPERATOR Gender Identity Not on file Sexual Orientation Straight 01/23/2021 10 :16 PM CDT documented as of this encounter Last Filed Vital Signs Vital Sign Reading Time Taken Comments Blood Pressure 124/60 07/27/2023 2:56 PM TELESCOPE OPERATOR Pulse - - Temperature - - Respiratory Rate - - Oxygen Saturation - - Inhaled Oxygen Concentration - - Weight - - Height - - Body Mass Index - - documented in this encounter Nursing Notes * Millicent Amor RN - 07/27/2023 1:45 PM CST Patient presented to the infusion center today for a phlebotomy. Vitals and labs reviewed. HCT 47. Phlebotomy performed in the left arm via donormatic. Tolerated well. Patient refused anything to eator drink. Monitored for 15 minutes, repeat vitals stable. AVS printed and reviewed with patient. Patient had no further questions at this time and left in stable condition. SCOPE OPERATOR documented in this encounter Plan of Treatment Not on file documented as of this encounter Goals Goal Patient Goal Type Associated Problems Recent Progress Patient-Stated? Author GULSHAN General Goal - Patient schedules and keeps appointments with all recommended providers ACO Care Management On track(2022 11:14 AM TELESCOPE OPERATOR) Sepideh Guo, SUE Note: Problem: Potential [...] Orde red Date ONCBCN THERAPEUTIC PHLEBOTOMY 1 07/27/2023 Appointment Requests Count Last Ordered Date Fi rst Ordered Date ONCBCN THERAPEUTIC PHLEBOTOM Y APPOINTMENT REQUEST 1 07/27/2023 documented in this encounter Care Teams Conduit Helper Relationship Specialty Start Date End Date Christine Herzog MD [address] [facility] [address] [place] [address] PCP - General Internal Medicine 12/02/21 Trey Pinedo MD [address] [place] [address] [address] [place] [address] Consulting Physician Neurology 05/09/19 Albert Craft MD [address] [place] [address] [address] [place] [address] Consulting Physician Gastroenterology 03/11/22 Chintan Figueroa MD [address] [place] [address] [address] [place] [address] Consulting Physician Hematology and Oncology 03/11/22 Jameel Bloom DPM [address] [place] [address] Consulting Physician Orthotics 03/11/22 Gadiel Genao MD [address] [place] [address] Surgeon Vascular Surgery 03/11/22 documented as of this encounter
--- OUTSIDE RECORDS SUMMARY | 2024-06-18 18:04 | XMS_ITS | Encounter Summary ---
Author Organization [facility] Healthcare Address [address] [place] [address] Care Team Providers Care Tail Board Worker Name Role Phone Trey Pinedo MD Unavailable [phone] Christine Herzog MD Primary Care Provide r Albert Craft MD Unavailable [phone] Chintan Figueroa MD Unavailable [phone] Jameel Bloom DPM Unavailable [phone] Gadiel Genao MD Unavailable [phone] Reason for Visit * Reason Comments Phlebotomy Encounter Details Date Type Department Care Team (Late st Contact Info) Description 05/22/2023 11:00 AM MANUFACTURING SR ENGINEER Infusion [facility] 4 [facility] [address] [place] [id number] Polycythemia Social History Tobacco Use Types Packs/Day [...] often do you attend chur ch or advent services? Patient declined 09/28/2022 Do you belong to any clubs o r organizations such as nondenominational groups, unions, fraternal or athletic groups, or [...] on file 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 MANUFACTURING SR ENGINEER Gender Identity Not on file Sexual Orientation Straight 01/23/2021 10 :16 PM CDT documented as of this encounter Last Filed Vital Signs Vital Sign Reading Time Taken Comments Blood Pressure 110/57 05/22/2023 12:25 PM MANUFACTURING SR ENGINEER Pulse 62 05/22/2023 12:25 PM MANUFACTURING SR ENGINEER Temperature 36.2 ??C (97.1 ??F) 05/22/2023 12:[address] Respiratory Rate 16 05/22/2023 12:25 PM MANUFACTURING SR ENGINEER Oxygen Saturation 97% 05/22/2023 12:25 PM MANUFACTURING SR ENGINEER Inhaled Oxygen Concentration - - Weight - - Height - - Body Mass Index - - documented in this encounter Nursing Notes * Haydee Ricks RN - 05/22/2023 11:00 AM CST Pt presented to the infusion center per for a phlebotomy. pts vitals signs are stable and no questions or concerns. Labs done prior and reviewed Therapeutic phlebotomy required. Phlebotomy performed via donormatic 500ml blood removed. Pt tolerated well vitals done post treatment. Pt discharged after 30 min observation and left in stable condition. FACTURING SR ENGINEER documented in this encounter Plan of Treatment Not on file documented as of this encounter Goals Goal Patient Goal Type Associated Problems Recent Progress Patient-Stated? Author GULSHAN General Goal - Patient schedules and keeps appointments with all recommended providers ACO Care Management On track(2022 11:14 AM MANUFACTURING SR ENGINEER) No Sepideh Hi RN Note: Problem: [...] ONCBCN THERAPEUTIC PHLEBOTOM Y APPOINTMENT REQUEST 1 05/22/2023 documented in this encounter Care Teams Tail Board Worker Relationship Specialty Start Date End Date Christine Herzog MD [address] [facility] [address] [place] [address] PCP - General Internal Medicine 12/02/21 Trey Pinedo MD [address] [place] [address] [address] [place] [address] Consulting Physician Neurology 05/09/19 Albert Craft MD [address] [place] [address] [address] [place] [address] Consulting Physician Gastroenterology 03/11/22 Chintan Figueroa MD [address] [place] [address] [address] [place] [address] Consulting Physician Hematology and Oncology 03/11/22 Jameel Bloom DPM [address] [place] [address] Consulting Physician Orthotics 03/11/22 Gadiel Genao MD [address] [place] [address] Surgeon Vascular Surgery 03/11/22 documented as of this encounter
--- OUTSIDE RECORDS SUMMARY | 2024-06-18 18:04 | XMS_ITS | Encounter Summary ---
Author Organization [facility] Address [address] [facility] [address] [place] [address] Care Team Providers Care Cyber Reverse Engineer Name Role Phone Trey Pinedo MD Unavailable [phone] Christine Herzog MD Primary Care Provide r Albert Craft MD Unavailable [phone] Chintan Figueroa MD Unavailable [phone] Jameel Bloom DPM Unavailable [phone] Gadiel Genao MD Unavailable Encounter Details Date Type Department Care Team (Late st Contact Info) Description 03/24/2023 Orders Only [facility] Primary Care at [address] [place] [address] Christine Herzog MD [address] [place] [address] [address] [place] [address] 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) Social History Tobacco Use Types [...] often do you attend chur ch or confucianist services? Patient declined 09/28/2022 Do you belong to any clubs o r organizations such as latter day groups, unions, fraternal or athletic groups, or [...] on file 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 EDUCATION COUNSELOR Gender Identity Not on file Sexual Orientation Straight 01/23/2021 10 :16 PM CDT documented as of this encounter Plan of Treatment Not on file documented as of this encounter Goals Goal Patient Goal Type Associated Problems Recent Progress Patient-Stated? Author GULSHAN General Goal - Patient schedules and keeps appointments with all recommended providers ACO Care Management On track(2022 11:14 AM EDUCATION COUNSELOR) No Sepideh Hi, SUE Note: Problem: Potential [...] as of this encounter Results * (ABNORMAL) Albumin Creatinine Ratio, Urine (12/14/2023 9:36 AM CDT) Albumin Ur 135.9 mg/L Comment: Interpretive Data No reference range established. Current interpretive data was last revised 2018. Testing performed by: [facility], [address] [place] [address], [place]., [address] Creatinine Ur 247.3 mg/dL [facility] ([facility]) Comment: Interpretive Data No reference range established. Current interpretive data was last revised 2018. Testing performed by: [facility], [address] [place] [address]., [address] Albumin Creatinine Ratio, Ur 55(H) 1 - 29 mg/g [facility] ([facility]) Comment:Testing performed by : [facility], [address] [place] [address]., [address] Urine 12/14/2023 9:36 AM CDT 12/14/2023 1:31 PM CDT Narrative [facility] ([facility]) - 12/14/2023 2:34 PM CDT Non fasting Christine Herzog MD LAB URINE ORDERABLES Final Result [facility] ([facility]) 1 [facility] [place] [address] * (ABNORMAL) Comprehensive metabolic panel (12/14/2023 9:36 AM CDT) Sodium 143 135 - 145 mmol/L Potassium, pl 4.5 3.3 - 4.9 mmol/L [facility] ([facility] Chloride 107 97 - 110 mmol/L [facility] ([facility]) CO2 24 22 - 32 mmol/L [facility] ([facility]) Anion gap 12 2 - 15 mmol/L [facility] ([facility]) BUN 25 6 - 25 mg/dL [facility] ([facility]) Creatinine 1.44(H) 0.80 - 1.30 mg/dL [facility] ([facility]) Glucose 106 70 - 199 mg/dL [facility] ([facility]) Comment: Interpretive Data Fasting glucose [...] - 12/14/2023 11:45 AM CDT Non fasting Christine Herzog MD LAB BLOOD ORDERABLES Final Result [facility] ([facility]) 1 [facility] Department [place] [address] documented in this encounter Visit Diagnoses Diagnosis Type 2 diabetes mellitus with hyperlipidemia (HCC)- Primary Type 2 diabetes mellitus with hyperlipidemia (HCC) documented in this encounter Care Teams Cyber Reverse Engineer Relationship Specialty Start Date End Date Christine Herzog MD [address] [facility] [address] [place] [address] PCP - General Internal Medicine 12/02/21 Trey Pinedo MD [address] [facility] [address] [place] [address] Consulting Physician Neurology 05/09/19 Albert Craft MD [address] [facility] [address] [place] [address] Consulting Physician Gastroenterology 03/11/22 Chintan Figueroa MD [address] [place] [address] [address] Consulting Physician Hematology and Oncology 03/11/22 Jameel Bloom DPM [address] [place] [address] Consulting Physician Orthotics 03/11/22 Gadiel Genao MD [address] [place] [address] Surgeon Vascular Surgery 03/11/22 documented as of this encounter
--- OUTSIDE RECORDS SUMMARY | 2024-06-18 18:04 | XMS_ITS | Encounter Summary ---
Author Organization [facility] Address [address] [address] Care Team Providers Care Observer Electrical Prospecting Name Role Phone Trey Pinedo MD Unavailable [phone] Christine Herzog MD Primary Care Provide r Albert Craft MD Unavailable [phone] Chintan Figueroa MD Unavailable [phone] Jameel Bloom DPM Unavailable [phone] Gadiel Genao MD Unavailable Reason for Visit * Reason Comments Atrial Fibrillation Hyperlipidemia Hypertension Bradycardia Encounter Details Date Type Department Care Team (Late st Contact Info) Description 02/09/2023 11:45 AM CDT Office Visit [facility] Cardiology [address] [facility] [address] [place] [address] Bijal Galindo MD [address] [place] [address] [address] [place] [address] 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 Gender Identity Not on file Sexual Orientation Straight 01/23/2021 10 :16 PM CDT documented as of this encounter Last Filed Vital Signs Vital Sign Reading Time Taken Comments Blood Pressure 120/68 02/09/2023 12:00 PM CDT Pulse 60 02/09/2023 12:00 PM CDT Temperature - - Respiratory Rate - - Oxygen Saturation 99% 02/09/2023 12:00 PM CDT Inhaled Oxygen Concentration - - Weight 87.7 kg (193 lb 6.4 oz) 02/09/2023 12:00 PM CDT Height - - Body Mass Index 30.29 01/26/2023 1:11 PM CDT documented in this encounter Progress Notes * Bijal Galindo MD - 02/09/2023 11:45 AM CDT Subjective/Objective Patient ID: Villa Zuniga is a 77 y.o. male. Chief Complaint Atrial Fibrillation, Hyperlipidemia, Hypertension, and Bradycardia HPI Mr. Zuniga is a 76-year-old male who returns for follow-up visit. He did undergo a Lexiscan Myoview stress test performed on 11/03/2021 showed no Lexiscan induced ischemic EKG changes, study was well tolerated, baseline atrial fibrillation with slow ventricular response, elevated blood pressure 202/86 mmHg but was normal in my office when he saw me last visit. In light of his elevated blood pressure I increased his amlodipine from 2.5 up to 5 mg daily and I asked him to discontinue his Toprol-XL 25 mg daily in light of his slow ventricular rate. His Myoview images showed no evidence of ischemia left ventricle fixed apical defect with normal apical wall motion most consistent with apical thinning artifact normal left ventricular cavity size, wall motion, TID index and calculated left ventricular systolic ejection fraction 65%. Compared to the previous study which was last done on 08/17/2022, reversal ischemia of the septal wall and partially reversible ischemia of the inferior wall associated with wall motion abnormalities are no longer seen and the ejection fraction has improved from 48% up to 65% . He informs me the Eliquis is gone up to 500 dollars per month but it may be due to him being in the doughnut hole. He does walk with a walker without any falls. He denies any chest pain or any shortness of breath and denies any neurologic symptoms such as TIA or stroke symptoms. He is not doing any regular exercise He denies any significant bleeding on Eliquis and aspirin. His children dispense his medications he is compliant with his medications. he denies any side effects from his medications. he denies any chest pain, dyspnea, paroxysmal nocturnal dyspnea, orthopnea, presyncope, syncope, palpitations or pedal edema. Current Outpatient Medications: amLODIPine (NORVASC) 5 mg tablet, Take 1 tablet (5 mg total) by mouth daily, Disp: 90 tablet, Rfl: 3 apixaban (ELIQUIS) 5 mg tablet, Take 1 tablet (5 mg total) by mouth 2 (two) times a day, Disp: 180 tablet, Rfl: 1 aspirin 81 mg tablet, Take one by mouth one time per day, Disp: 0, Rfl: 0 atorvastatin (LIPITOR) 40 mg tablet, TAKE 1 TABLET BY MOUTH DAILY, Disp: 90 tablet, Rfl: 1 finasteride (PROSCAR) 5 mg tablet, Take 1 tablet (5 mg total) by mouth daily, Disp: 90 tablet, Rfl:3 lisinopriL (PRINIVIL,ZESTRIL) 20 mg tablet, TAKE 1 TABLET BY MOUTH DAILY, Disp: 90 tablet, Rfl: 3 magnesium oxide (MAG-OX) 400 mg (241.3 mg elemental magnesium) tablet, Take 1 tablet (400 mg total)by mouth 2 (two) times a day, Disp: 180 tablet, Rfl: 1 memantine (NAMENDA) 5 mg tablet, Take 1 tablet (5 mg total) by mouth 2 (two) times a day, Disp: 60 tablet, Rfl: 8 Review of Systems Constitutional: Negative for chills, fatigue, fever and unexpected weight change. HENT: Negative for hearing loss, nosebleeds and tinnitus. Eyes: Negative for photophobia. Respiratory: Negative for cough and wheezing. Gastrointestinal: Negative for abdominal pain, blood in stool, constipation, diarrhea, nausea and vomiting. Endocrine: Negative for cold intolerance and heat intolerance. Genitourinary: Negative for frequency, hematuria and urgency. Musculoskeletal: Negative for back pain. Skin: Negative for rash. Allergic/Immunologic: Negative for immunocompromised state. Neurological: Negative for tremors and seizures. Hematological: Negative for adenopathy. Psychiatric/Behavioral: Negative for confusion and sleep disturbance. BP 120/68 (BP Location: Right arm, Patient Position: Sitting) Pulse 60 Wt 87.7 kg (193 lb 6.4 oz) SpO2 99% BMI 30.29 kg/m?? Weight from previous visit 09/06/2022 is 177lbs Physical Exam Physical Exam: GENERAL APPEARANCE: The patient is in no acute distress. HEAD: Atraumatic, normocephalic. EYES: No scleral icterus. NECK/THYROID: Neck is supple without lymphadenopathy. Carotid pulses 2+, normal carotid upstroke, no carotid bruits. SKIN: No rashes and no jaundice seen. HEART: The rhythm is regular with occasional extra beat, rate is regular with no murmurs gallops orrubs. LUNGS: Clear to auscultation bilaterally. ABDOMEN: Normal bowel sounds, soft nondistended, no tenderness. EXTREMITIES: No cyanosis, clubbing or edema. NEUROLOGIC: Grossly intact. PSYCH: Alert and oriented x 3. Lab Results Component Value Date CHOL 136 01/26/2023 HDL 40 01/26/2023 LDL 117 03/11/2016 LDLCALC 54 01/26/2023 CHOLHDL 3 01/26/2023 TRIG 209 (H) 01/26/2023 SODIUM 141 01/26/2023 POTASSIUM 5.0 (H) 01/26/2023 MAGNESIUM 2.3 08/11/2022 CO2 24 01/26/2023 BUNSER 33 (H) 01/26/2023 BUN 20 09/15/2016 GLUCOSE 95 01/26/2023 CREATININE 1.40 (H) 01/26/2023 CALCIUM 9.2 01/26/2023 CHLORIDE 107 01/26/2023 ALBUMIN 4.2 01/26/2023 ALT 20 01/26/2023 AST 17 01/26/2023 ALKPHOS 95 01/26/2023 BILITOT 0.4 01/26/2023 PROT 7.0 01/26/2023 WBC 7.3 01/26/2023 HGB 14.7 01/26/2023 LABPLAT 187 01/26/2023 TSH 1.68 08/06/2022 Laboratories performed on 11/18/2022. Wbc 7.0, hgb 14.8, hct 46.6, plt 195, mpv 10.4, rbc 5.51, mcv84.6, mch 26.9, mchc 31.8, rdw cv 15.4, rdw sd 47.9, ECG done on 02/09/2023 shows a noisy baseline but appears to be sinus rhythm with a first-degree AVblock with rate of 63 beats per minute, RSR prime pattern, high lateral T-wave abnormality, compared to the previous EKG which was last done on 09/06/2022, the heart rate is increased by 9 beats per minute and the PVCs are more frequent. 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 (I25.10) (Primary) - ECG 12 lead Essential hypertension (I10) - Comprehensive metabolic panel; Future - ECG 12 lead Paroxysmal atrial fibrillation (CMS/HCC) (HCC) (I48.0) - ECG 12 lead Pulmonary hypertension (HCC) (I27.20) - ECG 12 lead Pure hypercholesterolemia (E78.00) - Lipid panel; Future - ECG 12 lead Current use of fci anticoagulation (Z79.01) - CBC with auto differential; Future - ECG 12 lead PVC (premature ventricular contraction) (I49.3) Paroxysmal Atrial fibrillation with slow ventricular response occurring on 08/06/2022 in the setting of a patient being on metoprolol succinate 50 mg daily with acute diagnosis of COVID infection. Chads 2 Vasc score of 4, so placed on Eliquis anticoagulation and metoprolol was eventually discontinued due to slow ventricular heart rates now better off metoprolol, currently in sinus rhythm PVCs noted on EKG Bradycardia, pulse rate is also confounded by the issue that he is having frequent PVCs in additionto having a slower heart rate. The PVCs do not typically conduct, metoprolol was eventually discontinued Mildly elevated high sensitivity troponin Ts with no significant delta, no evidence of ACS [id number] left atrial enlargement and mild dilated right atrium on echocardiogram done on 08/06/2022 Mild pulmonary hypertension with RV systolic pressure 42 mm Hg on echocardiogram done on 08/06/2022 Trace to mild tricuspid regurgitation by echocardiogram done on 08/06/2022 Active COVID infection, asymptomatic. History of hypertension - now controlled Pure hypercholesterolemia on atorvastatin with lipids at goal GERD History of TIA back in 2018 placed on Plavix, changed over to Eliquis when he had atrial fibrillation and Eliquis Initially reported left internal carotid was occluded but subsequent imaging by vascular surgery found that this was not the case and widely patent left and right internal carotid arteries on a CT scan Osteoarthritis status post bilateral knee replacement Mild thrombocytopenia tolerating Eliquis with no bleeding Plan- I would recommend he of use every precaution to avoid falls and uses walker whenever he walks. In light of the elevated cost of the Eliquis I asked him to check with his pharmacy to see if Xarelto would be cheaper as he would require a 20 mg dose dose at dinnertime each day as his GFR calculated is 50 60s sees per minute. I will continue for now the Eliquis 5 mg p.o. b.i.d., amlodipine 5 mgdaily, aspirin 81 mg daily, lisinopril 5 mg daily, magnesium oxide 400 mg b.i.d. and atorvastatin 40 mg daily. His primary care physician has ordered a repeat BMP for 1 week to re-evaluate his creatinine and his potassium level. I will have him return in six months time and obtain a fasting lipid pr ofile, complete metabolic profile and a CBC prior to his follow-up visit. I asked him return soonerif he has as his cardiac issues or problems. CARDIAC TESTING: ECHOCARDIOGRAM 08/06/22. Mild to moderate left atrial enlargementThe right atrium is mildly dilated.Left ventricular systolic function is normal.Ejection Fraction = 60- 65%.The right ventricle is normal size.The right ventricular systolic function is normal.There is trace to mild tricuspid regurgitation.'Mild' pulmonary hypertension.Right ventricular systolic pressure is '42' mm/HG.IVC appears 'dilated' in size E wave seen,no significant A wave noted consistent with atrial fibrillation. ECHOCARDIOGRAM 05/08/19. Normal left ventricular systolic function with no focal wall motion abnormalities. Normalleft ventricular size. Normal left ventricular wall thickness. Impaired diastolic relaxation Grade I. Ejection fraction is visually estimated at 65-70 %.Right Ventricular Systolic Pressure could not be estimated due to inadequate visualization of TR jet.Technically difficult study with limited views. LEXISCAN MYOVIEW STRESS TEST 11/03/2021 showed no Lexiscan induced ischemic EKG changes, study was well tolerated, baseline atrial fibrillation with slow ventricular response, elevated blood pressure 202/86 mmHg but was normal in my office when he saw me last visit. In light of his elevated blood pressure I increased his amlodipine from 2.5 up to 5 mg daily and I asked him to discontinue his Toprol-XL 25 mg daily in light ofhis slow ventricular rate. His Myoview images showed no evidence of ischemia left ventricle fixed apical defect with normal apical wall motion most consistent with apical thinning artifact normal left ventricular cavity size, wall motion, TID index and calculated left ventricular systolic ejection f raction 65%. Compared to the previous study which was last done on 08/17/2022, reversal ischemia ofthe septal wall and partially reversible ischemia of the inferior wall associated with wall motion abnormalities are no longer seen and the ejection fraction has improved from 48% up to 65% MYOVIEW STRESS 08/17/12. REVERSIBLE ISCHEMIA OF THE SEPTAL WALL. PARTIAL REVERSIBILITY OF THE INFERIOR WALL. ASSOCIATED WALL MOTION ABNORMALITY. CARDIAC CATHETERIZATION 11/22/12. SEVERE FOCAL THREE VESSEL CORONARY ARTERY DISEASE.NORMAL LEFT VENTRICULAR SYSTOLIC WALL MOTION AND EJECTION FRACTION.MILD MITRAL REGURGITATION.NORMAL LEFT VENTRICULAR END DIASTOLIC PRESSURE.SUCCESSFUL PERCUTANEOUS CORONARY INTERVENTION AND IMPLANTATION OF A 3.0 X 12MM EXPEDITION DRUG-ELUTING STENT IN THE MID CIRCUMFLEX BRANCH.SUCCESSFUL IMPLANTATION OF A 3.0 X 15MM EXPEDITION DRUG-ELUTING STENT IN THE DIAGONAL BRANCH OF THE LAD. documented in this encounter Miscellaneous Notes * Addendum Note - Reyna Cheung - 02/09/2023 11:45 AM CDTAddended by: REYNA CHEUNG on: 11/04/2023 10:59 AM Modules accepted: Orders documented in this encounter Plan of Treatment Not on file documented as of this encounter Goals Goal Patient Goal Type Associated Problems Recent Progress Patient-Stated? 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 Essential hypertension Paroxysmal atrial fibrillation (CMS/HCC) (HCC) Pulmonary hypertension (HCC) Pure hypercholesterolemia Current use of fci anticoagulation documented in this encounter Results * (ABNORMAL) CBC with auto differential (11/04/2023 11:12 AM CDT) WBC 7.9 3.8 - 9.9 K/cumm Hgb 12.9(L) 13.0 - 17.5 g/dL [facility] ([facility]) Hct 43.3 38.9 - 50.3 % [facility] ([facility]) Plt 228 150 - 400 K/cumm [facility] ([facility]) MPV 9.9 9.1 - 12.3 fL [facility] ([facility]) RBC 5.63 4.30 - 5.80 M/cumm [facility] ([facility]) MCV 76.9(L) 81.3 - 96.4 fL [facility] ([facility]) MCH 22.9(L) 27.1 - 33.3 pg [facility] ([facility]) MCHC 29.8(L) 32.3 - 35.7 g/dL [facility] ([facility]) RDW CV 17.1(H) 11.1 - 14.9 % [facility] ([facility]) RDW SD 46.0 35.7 - 48.1 fL [facility] ([facility]) NRBC abs 0.00 0.00 - 0.01 K/cumm [facility] ([facility]) Blood 11/04/2023 11:1 2 AM CDT 11/04/2023 11:37 AM CDT us Bijal Galindo MD LAB BLOOD ORDERABLES Final R esult [facility] [address] [facility] Department [place] [address] * (ABNORMAL) Comprehensive metabolic panel (11/04/2023 11:12 AM CDT) Sodium 141 135 - 145 mmol/L Potassium, pl 4.6 3.3 - 4.9 mmol/L [facility] ([facility]) Chloride 105 97 - 110 mmol/L [facility]) CO2 26 22 - 32 mmol/L [facility]) Anion gap 9 2 - 15 mmol/L [facility] ([facility]) BUN 25 6 - 25 mg/dL [facility] ([facility]) Creatinine 1.43(H) 0.80 - 1.30 mg/dL [facility] ([facility]) Glucose 117 70 - 199 mg/dL [facility] ([facility]) Comment: Interpretive Data Fasting glucose [...] classification and Diagnosis of Diabetes Diabetes Care 2022; 46: S19-S40. Current interpretive data was last revised 2022. Calcium 9.1 8.5 - 10.3 mg/dL [facility] ([facility]) Bilirubin, total 0.5 0.1 - 1.2 mg/dL [facility] ([facility]) Protein, pl 6.8 6.5 - 8.5 g/dL [...] MD LAB BLOOD ORDERABLES Final R esult [facility] [address] [facility] Department of Laboratories [place], [place] [id number] * (ABNORMAL) Lipid panel (11/04/2023 11:12 AM [...] revised on 2018. 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- Primary Essential hypertension Unspecified essential hypertension Paroxysmal atrial fibrillation (CMS/HCC) (HCC) Atrial fibrillation Pulmonary hypertension (HCC) Other chronic pulmonary heart diseases Pure hypercholesterolemia Current use of framework developer anticoagulation PVC (premature ventricular contraction) Other premature beats documented in this encounter Care Teams Observer Electrical Prospecting Relationship Specialty Start Date End Date Christine Herzog MD [address] [place] [address] PCP - General Internal Medicine 12/02/21 Trey Pinedo MD [address] [place] [address] Consulting Physician Neurology 05/09/19 Albert Craft MD [address] [place] [address] Consulting Physician Gastroenterology 03/11/22 Chintan Figueroa MD [address] [place] [address] Consulting Physician Hematology and Oncology 03/11/22 Jameel Bloom DPM [address] [place] [address] Consulting Physician Orthotics 03/11/22 Gadiel Genao MD [address] [place] [address] Surgeon Vascular Surgery 03/11/22 documented as of this encounter
--- OUTSIDE RECORDS SUMMARY | 2024-06-18 18:04 | XMS_ITS | Encounter Summary ---
Author Organization [facility] Healthcare Address [address] [place] [address] Care Team Providers Care Grocery Clerk Checking Name Role Phone Trey Pinedo MD Unavailable [phone] Christine Herzog MD Primary Care Provide r Albert Craft MD Unavailable [phone] Chintan Figueroa MD Unavailable [phone] Jameel Bloom DPM Unavailable [phone] Gadiel Genao MD Unavailable [phone] Encounter Details Date Type Department Care Team (Late st Contact Info) Description 07/27/2023 1:30 PM SMALL ANIMAL CARETAKER Lab [address] [address] Polycythemia Social History Tobacco Use Types Packs/Day [...] often do you attend chur ch or synagogue services? Patient declined 09/28/2022 Do you belong [...] on file 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 SMALL ANIMAL CARETAKER Gender Identity Not on file Sexual Orientation Straight 01/23/2021 10 :16 PM CDT documented as of this encounter Last Filed Vital Signs Vital Sign Reading Time Taken Comments Blood Pressure 157/61 07/27/2023 2:02 PM SMALL ANIMAL CARETAKER Pulse 53 07/27/2023 2:02 PM SMALL ANIMAL CARETAKER Temperature 35.7 ??C (96.3 ??F) 07/27/2023 2:02 PM CS T Respiratory Rate 18 07/27/2023 2:02 PM SMALL ANIMAL CARETAKER Oxygen Saturation 98% 07/27/2023 2:02 PM SMALL ANIMAL CARETAKER Inhaled Oxygen Concentration - - Weight 92.2 kg (203 lb 3.2 oz) 07/27/2023 2:02 P M SMALL ANIMAL CARETAKER Height - - Body Mass Index 31.83 04/20/2023 1:22 PM CDT documented in this encounter Plan of Treatment Not on file documented as of this encounter Goals Goal Patient Goal Type Associated Problems Recent Progress Patient-Stated? Author GULSHAN General Goal - Patient schedules and keeps appointments with all recommended providers ACO Care Management On track(2022 11:14 AM SMALL ANIMAL CARETAKER) Sepideh Guo, SUE Note: Problem: Potential for [...] Priority Date/Time Associated Diagnosis Comments EGFR Routine 07/27/2023 2:00 PM SMALL ANIMAL CARETAKER Polycythemia DIFFERENTIAL AUTO Routine 07/27/2023 2:0 0 PM SMALL ANIMAL CARETAKER Polycythemia CBC WITH AUTO DIFFERENTIAL Routine 07/27/2023 2:00 PM SMALL ANIMAL CARETAKER Polycythemia COMPREHENSIVE METABOLIC PANEL Routine 07/27/2023 2:00 PM SMALL ANIMAL CARETAKER Polycythemia documented in this encounter Results * eGFR (07/27/2023 2:00 PM SMALL ANIMAL CARETAKER) eGFR 53 mL/min/1. 73 m2 [facility] ([place]) Comment: Interpretive Data Reference Interval Normal ?>/= [...] of Race in Diagnosing Kidney Disease, JASN 202). The CKD-EPI equation should not be used for patients with unstable renal function and has not been validated in children and those over 70. Current interpretive data was last reviewed 2021. Testing performed by: [facility], [facility], [place], [address] Blood 07/27/2023 2:00 PM SMALL ANIMAL CARETAKER 07/27/2023 3:25 PM SMALL ANIMAL CARETAKER us Monika Castellano BACTERIOLOGIST SOIL LAB BLOOD ORDERABLES Final Result [facility] ([place]) 1 [facility] Department [place] [address] * Differential, auto (07/27/2023 2:00 PM SMALL ANIMAL CARETAKER) Neutrophil abs 4.5 1.5 - 6.5 K/cumm [facility] ([place]) Comment:Testing performed by : [facility] [address], Medical Office [facility] [address], [place] [address] Imm gran abs 0.0 0.0 - 0.1 K/cumm [facility] ([place]) Comment:Testing performed by : [facility] [address], Medical Office [facility] [address], [place] [address] Lymphocyte abs 1.4 0.8 - 3.3 K/cumm [facility] ([place]) Comment:Testing performed by : [facility] [address], Medical Office [facility] [address], [place] [address] Monocyte abs 0.7 0.2 - 0.8 K/cumm [facility] ([place]) Comment:Testing performed by : [facility] [address], Medical Office [facility] [address], [place] [address] Eosinophil abs 0.2 0.0 - 0.5 K/cumm [facility] ([place]) Comment:Testing performed by : [facility] [address], Medical Office [facility] [address], [place] [address] Basophil abs 0.1 0.0 - 0.1 K/cumm [facility] ([place]) Comment:Testing performed by : [facility] [address], Medical Office [facility] [address], [place] [address] Neutrophil pct 65.5 % [facility] ([place]) Comment: Interpretive Data Percent cell count reference ranges are not reported, since discordance with absolute values may lead to misinterpretation of CBC data. Current Interpretive Data was last revised on 2022. Testing performed by: [facility] [address], Medical Office Bld[address], [place] [address] Imm gran pct 0.3 % [facility] ([place]) Comment: Interpretive Data Percent cell count reference ranges are not reported, since discordance with absolute values may lead to misinterpretation of CBC data. Current Interpretive Data was last revised on 2022. Testing performed by: [facility] [address], Medical Office [address], [place] [address] Lymphocyte pct 20.3 % [facility] ([place]) Comment: Interpretive Data Percent cell count reference ranges are not reported, since discordance with absolute values may lead to misinterpretation of CBC data. Current Interpretive Data was last revised on 2022. Testing performed by: [facility] [address], Medical Office [address]g [address], [place] [address] Monocyte pct 9.8 % [facility] ([place]) Comment: Interpretive Data Percent cell count reference ranges are not reported, since discordance with absolute values may lead to misinterpretation of CBC data. Current Interpretive Data was last revised on 2022. Testing performed by: [facility] [address], Medical Office [facility] [address], [place] [address] Eosinophil pct 2.6 % [facility] ([place]) Comment: Interpretive Data Percent cell count reference ranges are not reported, since discordance with absolute values may lead to misinterpretation of CBC data. Current Interpretive Data was last revised on 2022. Testing performed by: [facility] [address], Medical Office [facility] [address], [place] [address] Basophil pct 1.5 % [facility] ([place]) Comment: Interpretive Data Percent cell count reference ranges are not reported, since discordance with absolute values may lead to misinterpretation of CBC data. Current Interpretive Data was last revised on 2022. Testing performed by: [facility] [address], Medical Office [address], [place] [address] Blood 07/27/2023 2:00 PM SMALL ANIMAL CARETAKER 07/27/2023 2:02 PM SMALL ANIMAL CARETAKER Monika Castellano BACTERIOLOGIST SOIL LAB BLOOD ORDERABLES Final Result [facility] ([place]) 1 [facility] Department [place] [address] * (ABNORMAL) CBC with auto differential (07/27/2023 2:00 PM SMALL ANIMAL CARETAKER) WBC 6.8 3.8 - 9.9 K/cumm [facility] ([place]) Comment:Testing performed by : [facility] [address], Medical Office Bld[address], [place] [address] Hgb 14.4 13.0 - 17.5 g/dL [facility] ([place]) Comment:Testing performed by : [facility] [address], Medical Office Bld[address], [place] [address] Hct 47.0 38.9 - 50.3 % [facility] ([place]) Comment:Testing performed by : [facility] [address], Medical Office Bld[address], [place] [address] Plt 205 150 - 400 K/cumm [facility] ([place]) Comment:Testing performed by : [facility] [address], Medical Office Bld[address], [place] [address] MPV 10.2 9.1 - 12.3 fL [facility] ([place]) Comment:Testing performed by : [facility] [address], Medical Office [address]ld[address], [place] [address] RBC 5.89(H) 4.30 - 5.80 M/cumm [facility] ([place]) Comment:Testing performed by : [facility] [address], Medical Office [address]ld[address], [place] [address] MCV 79.8(L) 81.3 - 96.4 fL [facility] ([place]) Comment:Testing performed by : [facility] [address], Medical Office [address]ld[address], [place] [address] MCH 24.4(L) 27.1 - 33.3 pg [facility] ([place]) Comment:Testing performed by : [facility] [address], Medical Office [facility] [address], [place] [address] MCHC 30.6(L) 32.3 - 35.7 g/dL [facility] ([place]) Comment:Testing performed by : [facility] [address], Medical Office [facility] [address], [place] [address] RDW CV 16.0(H) 11.1 - 14.9 % [facility] ([place]) Comment:Testing performed by : [facility] [address], Medical Office [facility] [address], [place] [address] RDW SD 46.0 35.7 - 48.1 fL [facility] ([place]) Comment:Testing performed by : [facility] [address], Medical Office [facility] [address], [place] [address] NRBC abs Not Measured 0.00 - 0.01 K/cumm [facility] ([place]) Comment:Testing performed by : [facility] [address], Medical Office [facility] [address], [place] [address] Blood 07/27/2023 2:0 0 PM SMALL ANIMAL CARETAKER 07/27/2023 2:02 PM SMALL ANIMAL CARETAKER Monika Castellano BACTERIOLOGIST SOIL LAB BLOOD ORDERABLES Final Result [facility] ([place]) 1 [facility] Department [place] [address] * (ABNORMAL) Comprehensive metabolic panel (07/27/2023 2:00 PM SMALL ANIMAL CARETAKER) Sodium 144 135 - 145 mmol/L [facility] ([place]) Comment:Testing performed by : [facility], [place], [address] Potassium, pl 3.9 3.3 - 4.9 mmol/L [facility] ([place]) Comment:Testing performed by : [facility], [place], [address] Chloride 107 97 - 110 mmol/L [facility] ([place]) Comment:Testing performed by : [facility], [place], [address] CO2 28 22 - 32 mmol/L [facility] ([place]) Comment:Testing performed by : [facility], [place], [address] Anion gap 9 2 - 15 mmol/L [facility] ([place]) Comment:Testing performed by : [facility], [facility], [place], [address] BUN 27(H) 6 - 25 mg/dL [facility] ([place]) Comment:Testing performed by : [facility], [place], [address] Creatinine 1.38(H) 0.80 - 1.30 mg/dL [facility] ([place]) Comment:Testing performed by : [facility], [place], [address] Glucose 92 70 - 199 mg/dL [facility] ([place]) Comment: Interpretive Data Fasting glucose >/= 126 [...] Current interpretive data was last revised 2022. Testing performed by: [facility], [place], [address] Calcium 9.3 8.5 - 10.3 mg/dL [facility] ([place]) Comment:Testing performed by : [facility], [place], [address] Bilirubin, total 0.4 0.1 - 1.2 mg/dL [facility] ([place]) Comment:Testing performed by : [facility], [place], [address] Protein, pl 7.1 6.5 - 8.5 g/dL [facility] ([place]) Comment:Testing performed by : [facility], [place], [address] Albumin 4.2 3.5 - 5.0 g/dL [facility] ([place]) Comment:Testing performed by : [facility], [place], [address] Alk phos 85 40 - 130 Units/L [facility] ([place]) Comment:Testing performed by : [facility], [facility], [place], [address] ALT 19 7 - 55 Units/L [facility] ([place]) Comment:Testing performed by : [facility], [facility], [place], [address] AST 15 10 - 50 Units/L [facility] ([place]) Comment:Testing performed by : [facility], [facility], [place], [address] Blood 07/27/2023 2:00 PM SMALL ANIMAL CARETAKER 07/27/2023 3:25 PM SMALL ANIMAL CARETAKER us Monika Castellano BACTERIOLOGIST SOIL LAB BLOOD ORDERABLES Final Result [facility] ([place]) 1 [facility] Department [place] [address] documented in this encounter Visit Diagnoses Diagnosis Polycythemia Polycythemia, secondary documented in this encounter Care Teams Grocery Clerk Checking Relationship Specialty Start Date End Date Christine Herzog MD [address] [place] [address] [address] [place] [address] PCP - General Internal Medicine 12/02/21 Trey Pinedo MD [address] [place] [address] [address] [place] [address] Consulting Physician Neurology 05/09/19 Albert Craft MD [address] [place] [address] [address] [place] [address] Consulting Physician Gastroenterology 03/11/22 Chintan Figueroa MD [address] [place] [address] [address] [place] [address] Consulting Physician Hematology and Oncology 03/11/22 Jameel Bloom DPM [address] [place] [address] Consulting Physician Orthotics 03/11/22 Gadiel Genao MD [address] [place] [address] Surgeon Vascular Surgery 03/11/22 documented as of this encounter
--- OUTSIDE RECORDS SUMMARY | 2024-06-18 18:04 | XMS_ITS | Encounter Summary ---
Author Organization [facility] Address [address] [facility] [address] [place] [address] Care Team Providers Care Pre Certification Specialist Name Role Phone Trey Pinedo MD Unavailable [phone] Christine Herzog MD Primary Care Provide r Albert Craft MD Unavailable [phone] Chintan Figueroa MD Unavailable [phone] Jameel Bloom DPM Unavailable [phone] Gadiel Genao MD Unavailable [phone] Encounter Details Date Type Department Care Team (Late st Contact Info) Description 01/27/2023 Telephone [facility] [address] [facility] [address] [place] [address] Christine Herzog MD [address] [place] [address] [address] [place] [address] Social History Tobacco Use Types Packs/Day Years [...] any clubs o r organizations such as buddhism groups, unions, fraternal or athletic groups, or [...] points, staff should administer the PHQ-9) 0 11/16/2022 PRAPARE - Transportation Answer Date Re corded [...] on file 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 STOCK TRADER Gender Identity Not on file Sexual Orientation Straight 01/23/2021 10 :16 PM CDT documented as of this encounter Miscellaneous Notes * Addendum Note - Hubert Ford MA - 01/27/2023 4:39 PM CDTAddended by: HUBERT FORD on: 01/27/2023 04:39 PM Modules accepted: Orders * Telephone Encounter - Hubert Ford MA - 01/27/2023 4:34 PM CDT Patients abdullahi Sosa aware ok per HIPAA. New lab orders entered for NOV per JGG * Telephone Encounter - Hubert Ford MA - 01/27/2023 4:34 PM CDT ----- Message from Christine Herzog MD sent at 01/27/2023 1:46 PM CDT ----- Let patient know his kidney function dropped some and potassium level is up. I recommend repeating cmp in 1 week and increase hydration for monitoring Dx hyperkalemia and acute kidney injury. Everything else unremarkable A1c was 6.2 These labs were done to early for his annual in March. Reorder cbc cmp lipid A1c prior to annual as well Dx health maintenance t2dm documented in this encounter Plan of Treatment Not on file documented as of this encounter Goals Goal Patient Goal Type Associated Problems Recent Progress Patient-Stated? Author GULSHAN General Goal - Patient schedules and keeps appointments with all recommended providers ACO Care Management On track(2022 11:14 AM STOCK TRADER) Sepideh Guo RN Note: Problem: Potential for [...] as of this encounter Results * (ABNORMAL) Hemoglobin A1c (03/23/2023 10:43 AM CDT) Hgb A1C 6.1(H) 4.0 - 5.6 % [facility]) Estimated Average Glucose 128 mg/dL [facility]) Comment: The ADA recommends reporting an estimated Average Glucose (eAG) with all Hemoglobin A1c results using the equation derived from a study of 507 normal and diabetic adults. ??Minority populations were underrepresented and children were not included. ?? (Diabetes Care 31:5301-0994, 2008). ??The eAG is not equivalent to a fasting glucose. Blood 03/23/2023 10:4 3 AM CDT 03/23/2023 10:51 AM CDT Narrative [facility] SCHROEDER) - 03/23/2023 11:47 AM CDT Fasting . Patient will have done 1-2 weeks prior to apt on 03-23-23 us Christine Herzog MD LAB BLOOD ORDERABLES Final Result [facility]) 1 [facility] Department [place] [address] * Lipid panel (03/23/2023 10:43 AM CDT) [facility] Cholesterol 141 30 - 199 mg/dL [facility] ([place]) Comment: Interpretive Data Ages < or [...] on 2018. HDL 41 >=40 mg/dL [facility] ([place]) Comment: Interpretive [...] 2018. LDL, calculated 81 <=129 mg/dL [facility] ([place]) Comment: Interpretive [...] last revised on 2018. Chol/HDL ratio 3 [facility] ([place]) Blood 03/23/2023 10:4 3 AM CDT 03/23/2023 10:51 AM CDT Narrative [facility] ([place]) - 03/23/2023 11:33 AM CDT Patient will have done 1-2 weeks prior to apt on 03-23-23 us Christine Herzog MD LAB BLOOD ORDERABLES Final Result [facility] ([place]) 1 [facility] Department [place] [address] * (ABNORMAL) Comprehensive metabolic panel (03/23/2023 10:43 [...] ORDERABLES Final Result [facility] ([place]) 1 [facility] Department [place] [address] * (ABNORMAL) CBC with auto differential (03/23/2023 [...] ([place]) MCHC 31.1(L) 32.3 - 35.7 g/dL [facility] ([place]) RDW CV 15.1(H) 11.1 - 14.9 % [facility] ([place]) RDW SD 44.8 35.7 - 48.1 fL [facility] ([place]) NRBC abs 0.00 0.00 - 0.01 K/cumm [facility] ([place]) Blood 03/23/2023 10:4 3 AM CDT 03/23/2023 10:51 AM CDT Narrative [facility] ([place]) - 03/23/2023 10:57 AM CDT Patient will have done 1-2 weeks prior to apt on 03-23-23 Christine Herzog MD LAB BLOOD ORDERABLES Final Result [facility] ([place]) 1 [facility] Department [place] [address] documented in this encounter Visit Diagnoses Diagnosis Healthcare maintenance- Primary Hyperkalemia Hyperpotassemia Acute kidney injury (HCC) Healthcare maintenance documented in this encounter Care Teams Pre Certification Specialist Relationship Specialty Start Date End Date Christine Herzog MD [address] [facility] [place] [address] PCP - General Internal Medicine 12/02/21 Trey Pinedo MD [address] [place] [address] [address] [place] [address] Consulting Physician Neurology 05/09/19 Albert Craft MD [address] [facility] [place] [address] Consulting Physician Gastroenterology 03/11/22 Chintan Figueroa MD [address] [facility] [place] [address] Consulting Physician Hematology and Oncology 03/11/22 Jameel Bloom DPM [address] [place] [address] Consulting Physician Orthotics 03/11/22 Gadiel Genao MD [address] [place] [address] Surgeon Vascular Surgery 03/11/22 documented as of this encounter
--- OUTSIDE RECORDS SUMMARY | 2024-06-18 18:04 | XMS_ITS | Encounter Summary ---
Author Organization [facility] Healthcare Address [address] [place] [address] Care Team Providers Care In Home Nanny Name Role Phone Trey Pinedo MD Unavailable [phone] Christine Herzog MD Primary Care Provide r Albert Craft MD Unavailable [phone] Chintan Figueroa MD Unavailable [phone] Jameel Bloom DPM Unavailable [phone] Gadiel Genao MD Unavailable [phone] Encounter Details Date Type Department Care Team (Late st Contact Info) Description 05/22/2023 10:15 AM AN/SQQ 89(V)15 [facility]ONAR SYSTEM JOURNEYMAN Lab [facility] [address] [facility] [address] [place] [id number] Polycythemia Social History Tobacco Use Types Packs/Day [...] any clubs o r organizations such as [employer] groups, unions, fraternal or athletic groups, or [...] on file 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 AN/SQQ 89(V)15 [employer] JOURNEYMAN Gender Identity Not on file Sexual Orientation Straight 01/23/2021 10 :16 PM CDT documented as of this encounter Plan of Treatment Not on file documented as of this encounter Goals Goal Patient Goal Type Associated Problems Recent Progress Patient-Stated? Author GULSHAN General Goal - Patient schedules and keeps appointments with all recommended providers ACO Care Management On track(2022 11:14 AM AN/SQQ 89(V)15 SONAR SYSTEM JOURNEYMAN) Sepideh Guo RN Note: Problem: Potential for [...] Priority Date/Time Associated Diagnosis Comments EGFR Routine 05/22/2023 10:40 AM AN/SQQ 89(V)15 [employer] SYSTEM JOURNEYMAN Polycythemia DIFFERENTIAL AUTO Routine 05/22/2023 10: 40 AM AN/SQQ 89(V)15 [employer] J[employer]NEYMAN Polycythemia CBC WITH AUTO DIFFERENTIAL Routine 05/22/2023 10:40 AM AN/SQQ 89(V)15 [employer] J[employer]NEYMAN Polycythemia COMPREHENSIVE METABOLIC PANEL Routine 05/22/2023 10:40 AM AN/SQQ 89(V)15 [employer] JOURNEYMAN Polycythemia documented in this encounter Results * eGFR (05/22/2023 10:40 AM AN/SQQ 89(V)15 SONAR SYSTEM JOURNEYMAN) eGFR 57 mL/min/1. 73 m2 [facility] ([facility]) Comment: Interpretive Data Reference Interval Normal ?>/= [...] interpretive data was last reviewed 2021. Blood 05/22/2023 10:4 0 AM AN/SQQ 89(V)15 [employer] SYSTEM JOURNEYMAN 05/22/2023 11:09 AM AN/SQQ 89(V)15 SON[employer] SYSTEM JOURNEYMAN us Chintan Figueroa MD LAB BLOOD ORDERABLES Final Re sult [facility] ([facility]) [address] [facility] Department of Laboratories [place], [place] [id number] * Differential, auto (05/22/2023 10:40 AM AN/SQQ 89(V)15 SONAR SYSTEM JOURNEYMAN) Neutrophil abs 4.5 1.7 - 6.5 K/cumm [facility] ([facility]) Imm gran abs 0.0 0.0 - 0.1 K/cumm [facility] ([facility]) Lymphocyte abs 1.5 0.8 - 3.3 K/cumm [facility] ([facility]) Monocyte abs 0.7 0.2 - 0.8 K/cumm [facility] ([facility]) Eosinophil abs 0.3 0.0 - 0.5 K/cumm [facility] ([facility]) Basophil abs 0.1 0.0 - 0.1 K/cumm [facility] ([facility]) Neutrophil pct 63.5 % [facility] ([facility]) Comment: Interpretive Data Percent cell count reference ranges are not reported, since discordance with absolute values may lead to misinterpretation of CBC data. Current Interpretive Data was last revised on 2022. Imm gran pct 0.3 % [facility] ([facility]) Comment: Interpretive Data Percent cell count reference ranges are not reported, since discordance with absolute values may lead to misinterpretation of CBC data. Current Interpretive Data was last revised on 2022. Lymphocyte pct 20.4 % [facility] ([facility]) Comment: Interpretive Data Percent cell count reference ranges are not reported, since discordance with absolute values may lead to misinterpretation of CBC data. Current Interpretive Data was last revised on 2022. Monocyte pct 10.0 % [facility] ([facility]) Comment: Interpretive Data Percent cell count reference ranges are not reported, since discordance with absolute values may lead to misinterpretation of CBC data. Current Interpretive Data was last revised on 2022. Eosinophil pct 4.4 % [facility] ([facility]) Comment: Interpretive Data Percent cell count reference ranges are not reported, since discordance with absolute values may lead to misinterpretation of CBC data. Current Interpretive Data was last revised on 2022. Basophil pct 1.4 % [facility] ([facility]) Comment: Interpretive Data Percent cell count reference ranges are not reported, since discordance with absolute values may lead to misinterpretation of CBC data. Current Interpretive Data was last revised on 2022. Blood 05/22/2023 10:4 0 AM AN/SQQ 89(V)15 [employer] SYSTEM JOURNEYMAN 05/22/2023 10:45 AM AN/SQQ 89(V)15 SON[employer] SYSTEM JOURNEYMAN us Chintan Figueroa MD LAB BLOOD ORDERABLES Final Re sult [facility] ([facility]) [address] [facility] [place] [address] * (ABNORMAL) CBC with auto differential (05/22/2023 10:40 AM AN/SQQ 89(V)15 SONAR SYSTEM JOURNEYMAN) WBC 7.1 3.8 - 9.9 K/cumm [facility] ([facility]) Hgb 14.4 13.0 - 17.5 g/dL [facility] ([facility]) Comment: Interpretive Data A reference range for this assay has not been established for patients with an unknown legal sex. Please refer to the laboratory test catalog for established sex-specific reference intervals. Current interpretive data was last revised on 2023. Hct 46.5 38.9 - 50.3 % [facility] ([facility]) Comment: Interpretive Data A reference range for this assay has not been established for patients with an unknown legal sex. Please refer to the laboratory test catalog for established sex-specific reference intervals. Current interpretive data was last revised on 2023. Plt 189 150 - 400 K/cumm [facility] ([facility]) MPV 10.3 9.1 - 12.3 fL [facility] ([facility]) RBC 5.68 4.30 - 5.80 M/cumm [facility] ([facility]) Comment: Interpretive Data A reference range for this assay has not been established for patients with an unknown legal sex. Please refer to the laboratory test catalog for established sex-specific reference intervals. Current interpretive data was last revised on 2023. MCV 81.9 81.3 - 96.4 fL [facility] ([facility]) MCH 25.4(L) 27.1 - 33.3 pg [facility] ([facility]) MCHC 31.0(L) 32.3 - 35.7 g/dL [facility] ([facility]) RDW CV 15.1(H) 11.1 - 14.9 % [facility] ([facility]) RDW SD 45.1 35.7 - 48.1 fL [facility] ([facility]) NRBC abs Not Measured 0.00 - 0.01 K/cumm [facility] ([facility]) Blood 05/22/2023 10:4 0 AM AN/SQQ 89(V)15 [employer] SYSTEM JOURNEYMAN 05/22/2023 10:45 AM AN/SQQ 89(V)15 [employer]ON[employer] SYSTEM JOURNEYMAN us Chintan Figueroa MD LAB BLOOD ORDERABLES Final Re sult [facility] ([facility]) [address] [facility] [place] [address] * (ABNORMAL) Comprehensive metabolic panel (05/22/2023 10:40 AM AN/SQQ 89(V)15 SONAR SYSTEM JOURNEYMAN) Sodium 140 135 - 145 mmol/L [facility] ([facility]) Potassium, pl 4.0 3.3 - 4.9 mmol/L [facility] ([facility]) Chloride 103 97 - 110 mmol/L [facility] ([facility]) CO2 25 22 - 32 mmol/L [facility] ([facility]) Anion gap 12 2 - 15 mmol/L [facility] ([facility]) BUN 27(H) 6 - 25 mg/dL [facility] ([facility]) Creatinine 1.30 0.80 - 1.30 mg/dL [facility] ([facility]) Glucose 150 70 - 199 mg/dL [facility] ([facility]) [...] interpretive data was last revised 2022. Calcium 8.9 8.5 - 10.3 mg/dL [facility] ([facility]) Bilirubin, total 0.4 0.1 - 1.2 mg/dL [facility] ([facility]) Protein, pl 6.8 6.5 - 8.5 g/dL [facility] ([facility]) Albumin 4.2 3.5 - 5.0 g/dL [facility] ([facility]) Alk phos 94 40 - 130 Units/L [facility] ([facility]) ALT 17 7 - 55 Units/L [facility] ([facility]) AST 16 10 - 50 Units/L [facility] ([facility]) Blood 05/22/2023 10:4 0 AM AN/SQQ 89(V)15 [employer] SYSTEM JOURNEYMAN 05/22/2023 11:09 AM AN/SQQ 89(V)15 SON[employer] SYSTEM JOURNEYMAN Chintan Figueroa MD LAB BLOOD ORDERABLES Final Re sult [facility] ([facility]) [address] [facility] [place] [address] documented in this encounter Visit Diagnoses Diagnosis Polycythemia Polycythemia, secondary documented in this encounter Orders Appointment Requests Count Last Ordered Date Fi rst Ordered Date ONCBCN LAB APPOINTMENT 1 05/22/2023 documented in this encounter Care Teams In Home Nanny Relationship Specialty Start Date End Date Christine Herzog MD [address] [facility] [facility] [address] [place] [address] PCP - General Internal Medicine 12/02/21 Trey Pinedo MD [address] [place] [address] [address] [place] [address] Consulting Physician Neurology 05/09/19 Albert rCaft MD [address] [place] [address] [address] [place] [address] Consulting Physician Gastroenterology 03/11/22 Chintan Figueroa MD [address] [place] [address] [address] [place] [address] Consulting Physician Hematology and Oncology 03/11/22 Jameel Bloom DPM [address] [place] [address] Consulting Physician Orthotics 03/11/22 [place] [address] [place] [id number] Surgeon Vascular Surgery 03/11/22 documented as of this encounter
--- OUTSIDE RECORDS SUMMARY | 2024-06-18 18:04 | XMS_ITS | Encounter Summary ---
Author Organization [facility] Address [address] [facility] [address] [place] [address] Care Team Providers Care Overhauler Helper Name Role Phone Trey Pinedo MD Unavailable [phone] Christine Herzog MD Primary Care Provide r Albert Craft MD Unavailable [phone] Chintan Figueroa MD Unavailable [phone] Jameel Bloom DPM Unavailable [phone] Gadiel Genao MD Unavailable [phone] Reason for Visit * Reason Comments Medicare Wellness Encounter Details Date Type Department Care Team (Late st Contact Info) Description 03/23/2023 3:00 PM CDT Office Visit [facility] Primary Care at [address] [place] [id number] Christine Herzog MD [address] [place] [address] [address] [place] [address] Bilateral carotid artery stenosis (Primary Dx); Coronary artery disease involving [place] coronary artery of [place] heart without angina pectoris; Essential hypertension; Mixed hyperlipidemia; Paroxysmal atrial fibrillation (CMS/HCC) (HCC); Pulmonary hypertension (HCC); 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 Gender Identity Not on file Sexual Orientation Straight 01/23/2021 10 :16 PM CDT documented as of this encounter Last Filed Vital Signs Vital Sign Reading Time Taken Comments Blood Pressure 140/80 03/23/2023 2:53 PM CDT Pulse 80 03/23/2023 2:53 PM CDT Temperature - - Respiratory Rate - - Oxygen Saturation 96% 03/23/2023 2:53 PM CDT Inhaled Oxygen Concentration - - Weight 89.4 kg (197 lb) 03/23/2023 2:53 PM CDT Height 170.2 cm (5' 7 ) 03/23/2023 2:53 PM CDT Body Mass Index 30.85 03/23/2023 2:53 PM CDT documented in this encounter Patient Instructions * Patient Instructions* Christine Herzog MD - 03/23/2023 3:00 PM CDT My medical chief technician and I are thankful you have [...] best! -Dr. Herzog documented in this encounter Progress Notes * Christine Herzog MD - 03/23/2023 3:00 PM CDT MEDICARE SUBSEQUENT ANNUAL WELLNESS VISIT [place] Medicare Health Risk Assessment Basic Information In general, would you say your health is: Good Do you have an advance directive, such as a living will or durable power of deputy prosecuting attorney?: Yes Would you like information regarding Advanced Directive (Living Will) and/or Durable Power of Commercial Coordinator?: No Do you have to strain or struggle to hear/understand conversations?: (!) Yes Have you experienced any of the following problems currently or recently? Eating: No Grooming: (!) Yes Bathing: (!) Yes Walking: No Using the toilet: No Memory problems: No Difficulty speaking: No Dressing: (!) Yes Balance: (!) Yes Pain: No Sexual Health: No Fatigue: (!) Yes Have you experienced any of the following problems currently or recently? Laundry and/or housekeeping: No Handling money: No Shopping: No Using the Phone: No Food preparation: (!) Yes Transportation: No Taking and/or getting your own medications: No Do you use prescription drugs that are not prescribed for you?: No Do you struggle with any of the following: depression, stress, anger, loneliness or social isolation?: No See scanned HRA documents HPI 77M with history of type 2 diabetes, hypertension, TIA, obstructive sleep apnea, elevated PSA, BPH,GERD who is coming in for a wellness exam. He recently saw cardiology for his afib. Saw vascular surgery and was told no further follow up needed it Problem List, Past Medical and Surgical History: Patient Active Problem List Diagnosis Hyperlipidemia Benign prostatic hyperplasia with lower urinary tract symptoms Essential hypertension Medicare annual wellness visit, subsequent Kidney stones Sensorineural hearing loss, bilateral Polycythemia Bladder stones Coronary artery disease involving [place] coronary artery of [place] heart without angina pectoris Chronic GERD History [...] hand, right, complicated Hematoma Current use of usp anticoagulation PVC (premature ventricular contraction) Class 1 obesity with body mass index (BMI) of 30.0 to 30.9 in adult Chronic kidney disease (CKD), stage III (moderate) (HCC) Past Medical History: Diagnosis Date Mayo esophagus Chronic obstructive pulmonary disease (HCC) COPD Diabetes mellitus (HCC) Diabetes GERD (gastroesophageal reflux disease) Heart disease HX OTHER MEDICAL 2013 Heart stents HX OTHER MEDICAL urinary stent s placed Hyperlipidemia Hyperlipidemia Hypertension Hypertension Kidney stone Polycythemia Polycythemia Past Surgical History: Procedure Laterality Date COLONOSCOPY 2009 OTHER SURGICAL HISTORY 2002 Carpal tunnel release both OTHER SURGICAL HISTORY karen total knees OTHER SURGICAL HISTORY 2012 Heart stents: [facility] Family History: Family History Problem Relation Age of Onset Hypertension Mother Hypertension; Heart disease Mother Heart disease; Diabetes Mother Diabetes mellitus; Stroke Mother 66 Stroke; Cancer Mother Cancer; Heart attack Mother Alzheimer's disease Father Alzheimer's Disease; Memory loss Father Cancer Brother Social History: Social History Tobacco Use Smoking status: Former Packs/day: 1.00 Years: 40.00 Additional pack years: 0.00 Total pack years: 40.00 Types: Cigarettes Quit date: 2008 Years since quittin.7 Smokeless tobacco: Never Tobacco comments: Quit in 2009 Substance and Sexual Activity Drug use: No Sexual activity: Not Currently Partners: Female control/protection: None Alcohol Use: Not At Risk (08/06/2022) AUDIT-C Frequency of Alcohol Consumption: Never Average Number of Drinks: Patient does not drink Frequency of Binge Drinking: Never denies alcohol use, denies tobacco use, and denies illicit drug use Allergies: Allergies Allergen Reactions Ciprofloxacin Rash Reaction: RASH, Reaction: Rash, Medications: Current Outpatient Medications: amLODIPine (NORVASC) 5 mg tablet, Take 1 tablet (5 mg total) by mouth daily, Disp: 90 tablet, Rfl: 3 aspirin 81 mg tablet, Take one by mouth one time per day, Disp: 0, Rfl: 0 atorvastatin (LIPITOR) 40 mg tablet, TAKE 1 TABLET BY MOUTH DAILY, Disp: 90 tablet, Rfl: 1 Eliquis 5 mg tablet, TAKE 1 TABLET BY MOUTH TWICE DAILY, Disp: 180 tablet, Rfl: 3 finasteride (PROSCAR) 5 mg tablet, Take 1 [...] a day, Disp: 60 tablet, Rfl: 8 Depression Screen: PHQ Screening PHQ-2 Total Score (If total score is 3 or more points, staff should administer the PHQ-9): 0 PHQ-9 Total Score: 0 Vitals: Vitals BP 140/80 (BP Location: Left arm, Patient Position: Sitting) Pulse 80 Ht 170.2 cm (5' 7 ) Wt 89.4 kg (197 lb) SpO2 96% BMI 30.85 kg/m?? Body mass index is 30.85 kg/m??. ROS: Review of Systems Constitutional: Negative for appetite change, chills, fatigue, fever and unexpected weight change. HENT: Negative for hearing loss, rhinorrhea, sore throat and trouble swallowing. No odynophagia, dysphagia Eyes: Negative for visual disturbance. Respiratory: Negative for cough, chest tightness, shortness of breath and wheezing. Cardiovascular: Negative for chest pain, palpitations and leg swelling. Gastrointestinal: Negative for abdominal pain, blood in stool, constipation, diarrhea, nausea and vomiting. Endocrine: Negative for polydipsia and polyuria. Genitourinary: Negative for difficulty urinating, dysuria, frequency, hematuria and urgency. Musculoskeletal: Negative for arthralgias, back pain, gait problem, joint swelling, myalgias and neck stiffness. Skin: Negative for rash. Neurological: Negative for dizziness, syncope, weakness, light-headedness and headaches. Hematological: Negative for adenopathy. Does not bruise/bleed easily. Psychiatric/Behavioral: Negative for agitation and sleep disturbance. The patient is not nervous/anxious. Exam: Physical Exam Constitutional: General: He is not in acute distress. HENT: Head: Normocephalic and atraumatic. Right Ear: External ear normal. Left Ear: External ear normal. Mouth/Throat: Pharynx: No oropharyngeal exudate (TMs normal, nose and throat clear). Eyes: Pupils: Pupils are equal, round, and reactive to light. Neck: Thyroid: No thyromegaly. Comments: No carotid bruits Cardiovascular: Rate and Rhythm: Normal rate and regular rhythm. Heart sounds: Normal heart sounds. No murmur (no edema) heard. No friction rub. No gallop. Pulmonary: Effort: Pulmonary effort is normal. Breath sounds: Normal breath sounds. No wheezing or rales. Chest: Chest wall: No tenderness. Abdominal: General: Bowel sounds are normal. Palpations: Abdomen is soft. There is no mass. Tenderness: There is no abdominal tenderness. There is no guarding. Comments: Tympanic, soft, NT Musculoskeletal: General: No deformity. Normal range of motion. Cervical back: Neck supple. Lymphadenopathy: Cervical: No cervical adenopathy (no bruits). Skin: General: Skin is warm. Findings: No rash. Neurological: Mental Status: He is alert and oriented to person, place, and time. Cranial Nerves: No cranial nerve deficit. Deep Tendon Reflexes: Reflexes normal. Psychiatric: Judgment: Judgment normal. Care Team Providers: Patient Care Team: Christine Herzog MD as PCP - General (Internal Medicine) Trey Pinedo MD as Consulting Physician (Neurology) Albert Craft MD as Consulting Physician (Gastroenterology) Chintan Figueroa MD as Consulting Physician (Hematology and Oncology) Jameel Bloom DPM as Consulting Physician (Orthotics) Gadiel Genao MD as Surgeon (Vascular Surgery) Primary Pharmacy/DME suppliers: [id number] - [place] - [address] [place] [address] [place] [address] [facility] - [place] [id number] [place] [id number] [facility] [address] [facility] [address] [facility] - [facility] [address] [facility] [address] [facility] [phone] [id number] - [place] - [address] [facility] [address] [facility] [address] [facility] [address] [facility] [address] [place] [id number] Detection of Cognitive Impairment: The patient does have cognitive impairment based on direct observation, discussion with patient or family, or review of medical records. Health Maintenance: Health Maintenance Topics with due status: Overdue Topic Date Due Pneumococcal vaccine 65+ Never done Zoster Vaccine Never done Foot Exam 08/27/2021 Lung Cancer Screening 09/09/2021 Covid-19 Vaccine 11/01/2021 Dilated Eye Exam 02/02/2022 Health Maintenance Topics with due status: Due On Topic Date Due Influenza Vaccine 03/03/2023 Health Maintenance Topics with due status: Not Due Topic Last Completion Date DTaP/Tdap/Td Vaccine 09/16/2022 Prostate Cancer Screening-PSA 01/26/2023 Albumin Creatinine Ratio, Urine 01/26/2023 Fall Risk Assessment 03/23/2023 Depression Screening-PHQ 03/23/2023 Well Visit 65+ 03/23/2023 Lipid Panel 03/23/2023 Hemoglobin A1C 03/23/2023 eGFR 03/23/2023 Health Maintenance Topics with due status: Completed Topic Last Completion Date Hepatitis C Screening 06/17/2016 Health Maintenance Topics with due status: Discontinued Topic Date Due Colorectal Cancer Screening Discontinued Counseling and Referral of Preventative Services: Lifestyle Recommendations Increase Physical Activity, Reduce Weight, and Improve Diet Advanced Directive Durable Power of Commercial Coordinator: Yes Living Will: Yes Assessment and Plan: Diagnoses and all orders for this visit: Bilateral carotid artery stenosis (Primary) Assessment & Plan: Stable Released from vascular surgery Coronary artery disease involving [place] coronary artery of [place] heart without angina pectoris Assessment & Plan: Stable / clinically quiescent. Will continue to monitor. Continue with asa and plavix and statin Continue following with cardiology Essential hypertension Assessment & Plan: Bp in the office today BP Readings from Last 1 Encounters: 03/23/23 140/80 Continue current regimen of metoprolol 50mg daily Recommend DASH diet, heart-healthy lifestyle, exercise. Discussed the risks of hypertension. F/u in 6 months Mixed hyperlipidemia Assessment & Plan: Stable / clinically quiescent. Will continue to monitor. Continue atorvastatin 40mg daily Paroxysmal atrial fibrillation ([facility]) ([facility]) Assessment & Plan: Stable / clinically quiescent. Will continue to monitor. Continue following with cardiology Continue eliquis and finasteride managed by cardiology Pulmonary hypertension ([facility]) Assessment & Plan: Stable / clinically quiescent. Will continue to monitor. Managed by cardiology Type 2 diabetes mellitus with hyperlipidemia ([facility]) Assessment & Plan: The patient was counseled [...] exercise A1c reviewed F/u in 6 months Orders: - Hemoglobin A1c; Future Chronic GERD Assessment & Plan: Stable / clinically quiescent. Will continue to monitor. Continue with nexium as needed. Has not needed Polycythemia Assessment & Plan: Continue following with hematology Obstructive sleep apnea Assessment & Plan: Refuses cpap machine Medicare annual wellness visit, subsequent Assessment & Plan: cbc, cmp A1c and lipid ordered Declines flu zoster and pneumonia vaccine Colonoscopy: cologaurd ordered F/u in 1 year for annual Class 1 obesity with body mass index (BMI) of 30.0 to 30.9 in adult, unspecified obesity type, unspecified whether serious comorbidity present Assessment & Plan: He was counseled on the importance of maintaining a healthy weight and the risks of obesity. Weightloss recommended. Encourage 150min/ week of exercise Encourage 1500 calories in a day for weight loss Stage 3 chronic kidney disease, unspecified whether stage 3a or 3b CKD (HCC) Assessment & Plan: Stable Cmp urinalysis and microalbumin cr urine ratio in 6 months for monitoring F/u in 6 months Encourage hydration Patient here for annual Medicare wellness visit and for review of complete medical problem list. All the elements of the plan were completed as outlined by CMS. A copy of the prevention plan was given to the patient. I reviewed Medicare Wellness Questionnaire (other physicians involved in care, depression screen, advanced directives), cognitive/memory, and functional assessment. I reviewed and updated the complete problem list, medication list, family history, and immunization records with the patient. I provided preventive counseling and early detection interventions to the patient through health maintenance update and summary of today's office visit. documented in this encounter Miscellaneous Notes * Assessment & Plan Note - Christine Herzog MD - 03/23/2023 4:01 PM CDT Associated Problem(s): Chronic kidney disease (CKD), stage III (moderate) (HCC) Stable Cmp urinalysis and microalbumin cr urine ratio in 6 months for monitoring F/u in 6 months Encourage hydration * Assessment & Plan Note - Christine Herzog MD - 03/23/2023 3:14 PM CDT Associated Problem(s): Class 1 obesity with body mass index (BMI) of 30.0 to 30.9 in adult He was counseled on the importance of maintaining a healthy weight and the risks of obesity. Weightloss recommended. Encourage 150min/ week of exercise Encourage 1500 calories in a day for weight loss * Assessment & Plan Note - Christine Herzog MD - 03/22/2023 7:14 AM CDT Associated Problem(s): Medicare annual wellness visit, subsequent cbc, cmp A1c and lipid ordered Declines flu zoster and pneumonia vaccine Colonoscopy: cologaurd ordered F/u in 1 year for annual * Assessment & Plan Note - Christine Herzog MD - 03/22/2023 7:12 AM CDT Associated Problem(s): Obstructive sleep apnea Refuses cpap machine * Assessment & Plan Note - Christine Herzog MD - 03/22/2023 7:11 AM CDT Associated Problem(s): Polycythemia Continue following with hematology * Assessment & Plan Note - Christine Herzog MD - 03/22/2023 7:11 AM CDT Associated Problem(s): Chronic GERD Stable / clinically quiescent. Will continue to monitor. Continue with nexium as needed. Has not needed * Assessment & Plan Note - Christine Herzog MD - 03/22/2023 7:11 AM CDT Associated Problem(s): Type 2 diabetes mellitus [...] exercise A1c reviewed F/u in 6 months * Assessment & Plan Note - Christine Herzog MD - 03/22/2023 7:10 AM CDT Associated Problem(s): Pulmonary hypertension (HCC) Stable / clinically quiescent. Will continue to monitor. Managed by cardiology * Assessment & Plan Note - Christine Herzog MD - 03/22/2023 7:10 AM CDT Associated Problem(s): Paroxysmal atrial fibrillation (CMS/HCC) (HCC) Stable / clinically quiescent. Will continue to monitor. Continue following with cardiology Continue eliquis and finasteride managed by cardiology * Assessment & Plan Note - Christine Herzog MD - 03/22/2023 7:09 AM CDT Associated Problem(s): Hyperlipidemia Stable / clinically quiescent. Will continue to monitor. Continue atorvastatin 40mg daily * Assessment & Plan Note - Christine Herzog MD - 03/22/2023 7:09 AM CDT Associated Problem(s): Essential hypertension Bp in the office today BP Readings from Last 1 Encounters: 03/23/23 140/80 Continue current regimen of metoprolol 50mg daily Recommend DASH diet, heart-healthy lifestyle, exercise. Discussed the risks of hypertension. F/u in 6 months * Assessment & Plan Note - Christine Herzog MD - 03/22/2023 7:09 AM CDT Associated Problem(s): Coronary artery disease involving [place] coronary artery of [place] heart without angina pectoris Stable / clinically quiescent. Will continue to monitor. Continue with asa and plavix and statin Continue following with cardiology * Assessment & Plan Note - Christine Herzog MD - 03/22/2023 7:08 AM CDT Associated Problem(s): Bilateral carotid artery disease (HCC) Stable Released from vascular surgery documented in this encounter Plan of Treatment Not on file documented as of this encounter Goals Goal Patient Goal Type Associated Problems Recent Progress Patient-Stated? Author GULSHAN General Goal - Patient schedules and keeps appointments with all recommended providers [facility] Care Management On track(2022 11:14 AM ADOPTION SPECIALIST) Sepideh Guo, RN Note: Problem: Potential for [...] this encounter Results * (ABNORMAL) Hemoglobin A1c (12/14/2023 9:36 AM CDT) Hgb A1C 6.7(H) 4.0 - 5.6 % Estimated Average Glucose 146 mg/dL RUBENS CARMICHAEL (BETTY) Comment: The ADA recommends reporting an estimated Average Glucose (eAG) with all Hemoglobin A1c results using the equation derived from a study of 507 normal and diabetic adults. ??Minority populations were underrepresented and children were not included. ?? (Diabetes Care 31:2525-8357, 2008). ??The eAG is not equivalent to a fasting glucose. Blood 12/14/2023 9:36 AM CDT 12/14/2023 10:33 AM CDT Narrative RUBENS CARMICHAEL (BETTY) - 12/14/2023 11:02 AM CDT fasting Christine Herzog MD LAB BLOOD ORDERABLES Final Result RUBENS CARMICHAEL (ROTAN) [address] Department [place] [address] documented in this encounter Visit Diagnoses Diagnosis Bilateral carotid artery stenosis- Primary Occlusion and stenosis of carotid artery without mention of cerebral infarction Coronary artery disease involving [place] coronary artery of [place] heart without angina pectoris Essential hypertension Unspecified essential hypertension Mixed hyperlipidemia Paroxysmal atrial fibrillation (CMS/HCC) (HCC) Atrial fibrillation Pulmonary hypertension (HCC) Other chronic pulmonary heart diseases Type 2 diabetes mellitus with hyperlipidemia (HCC) Chronic GERD Polycythemia Polycythemia, secondary Obstructive sleep apnea Obstructive sleep apnea (adult) (pediatric) Medicare annual wellness visit, subsequent Class 1 obesity with body mass index (BMI) of 30.0 to 30.9 in adult, unspecified obesity type, unspecified whether serious comorbidity present Stage 3 chronic kidney disease, unspecified whether stage 3a or 3b CKD (HCC) Type 2 diabetes mellitus with hyperlipidemia ([facility]) documented in this encounter Care Teams Overhauler Helper Relationship Specialty Start Date End Date Christine Herzog MD [address] [place] [address] PCP - General Internal Medicine 12/02/21 Trey Pinedo MD [address] [place] [address] [address] [place] [address] Consulting Physician Neurology 05/09/19 Albert Craft MD [address] [facility] [place] [address] Consulting Physician Gastroenterology 03/11/22 Chintan Figueroa MD [address] [facility] [place] [address] Consulting Physician Hematology and Oncology 03/11/22 Jameel Bloom DPM [address] [place] [address] Consulting Physician Orthotics 03/11/22 Gadiel Genao MD [address] [place] [address] Surgeon Vascular Surgery 03/11/22 documented as of this encounter
--- OUTSIDE RECORDS SUMMARY | 2024-06-18 18:04 | XMS_ITS | Encounter Summary ---
Author Organization [facility] Healthcare Address [address] [place] [address] Care Team Providers Care Stock Roller Name Role Phone Trey Pinedo MD Unavailable [phone] Christine Herzog MD Primary Care Provide r Albert Craft MD Unavailable [phone] Chintan Figueroa MD Unavailable [phone] Jameel Bloom DPM Unavailable [phone] Gadiel Genao MD Unavailable [phone] Encounter Details Date Type Department Care Team (Late st Contact Info) Description 09/21/2023 2:45 PM CDT Lab [address] [address] Polycythemia Social History Tobacco Use Types Packs/Day [...] any clubs o r organizations such as spiritism groups, unions, fraternal or athletic groups, or [...] on file 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 Gender Identity Not on file Sexual Orientation Straight 01/23/2021 10 :16 PM CDT documented as of this encounter Last Filed Vital Signs Vital Sign Reading Time Taken Comments Blood Pressure 120/53 09/21/2023 3:09 PM CDT Pulse 48 09/21/2023 3:09 PM CDT Temperature 36.4 ??C (97.5 ??F) 09/21/2023 3:09 PM CD T Respiratory Rate 20 09/21/2023 3:09 PM CDT Oxygen Saturation 97% 09/21/2023 3:09 PM CDT Inhaled Oxygen Concentration - - Weight - - Height - - Body Mass Index - - documented in this encounter Plan of Treatment Not on file documented as of this encounter Goals Goal Patient Goal Type Associated Problems Recent Progress Patient-Stated? 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 73 m2 Comment: Interpretive Data Reference [...] was last reviewed 2021. Testing performed by: [facility], [facility], [place], [address] Blood 09/21/2023 3:05 PM CDT 09/21/2023 4:00 PM CDT Monika Castellano [employer] MECHANIC LAB BLOOD ORDERABLES Final Result R[facility] CARMICHAEL ([place]) 1 [facility] [place] [address] * Differential, auto (09/21/2023 3:05 PM CDT) Neutrophil abs 4.6 1.5 - 6.5 K/cumm Comment:Testing performed by : [facility] [address], Medical Office [facility] [address], [place] [address] Imm gran abs 0.0 0.0 - 0.1 K/cumm [facility] ([place]) Comment:Testing performed by : [facility] [address], Medical Office [facility] [address], [place] [address] Lymphocyte abs 1.5 0.8 - 3.3 K/cumm [facility] ([place]) Comment:Testing performed by : [facility] [address], Medical Office [facility] [address], [place] [address] Monocyte abs 0.7 0.2 - 0.8 K/cumm [facility] ([place]) Comment:Testing performed by : [facility] [address], Medical Office [facility] [address], [place] [address] Eosinophil abs 0.2 0.0 - 0.5 K/cumm [facility] ([place]) Comment:Testing performed by : [facility] [address], Medical Office [facility] [address], [place] [address] Basophil abs 0.1 0.0 - 0.1 K/cumm [facility] ([place]) Comment:Testing performed by : [facility] [address], Medical Office [facility] [address], [place] [address] Neutrophil pct 64.6 % [facility] ([place]) Comment: Interpretive Data Percent cell count reference ranges are not reported, since discordance with absolute values may lead to misinterpretation of CBC data. Current Interpretive Data was last revised on 2022. Testing performed by: [facility] [address], Medical Office [facility] [address], [place] [address] Imm gran pct 0.1 % [facility] ([place]) Comment: Interpretive Data Percent cell count reference ranges are not reported, since discordance with absolute values may lead to misinterpretation of CBC data. Current Interpretive Data was last revised on 2022. Testing performed by: [facility] [address], Medical Office [address], [place] [address] Lymphocyte pct 20.6 % [facility] ([place]) Comment: Interpretive Data Percent cell count reference ranges are not reported, since discordance with absolute values may lead to misinterpretation of CBC data. Current Interpretive Data was last revised on 2022. Testing performed by: [facility] [address], Medical Office [address], [place] [address] Monocyte pct 10.4 % [facility] ([place]) Comment: Interpretive Data Percent cell count reference ranges are not reported, since discordance with absolute values may lead to misinterpretation of CBC data. Current Interpretive Data was last revised on 2022. Testing performed by: [facility] [address], Medical Office [address], [place] [address] Eosinophil pct 2.9 % [facility] ([place]) Comment: Interpretive Data Percent cell count reference ranges are not reported, since discordance with absolute values may lead to misinterpretation of CBC data. Current Interpretive Data was last revised on 2022. Testing performed by: [facility] [address], Medical Office [address], [place] [address] Basophil pct 1.4 % [facility] ([place]) Comment: Interpretive Data Percent cell count reference ranges are not reported, since discordance with absolute values may lead to misinterpretation of CBC data. Current Interpretive Data was last revised on 2022. Testing performed by: [facility] [address], Medical Office [address], [place] [address] Blood 09/21/2023 3:05 PM CDT 09/21/2023 3:08 PM CDT us Monika Castellano [employer] MECHANIC LAB BLOOD ORDERABLES Final Result [facility] ([place]) 1 [facility] Department [place] [address] * (ABNORMAL) Comprehensive metabolic panel (09/21/2023 3:05 PM CDT) Sodium 141 135 - 145 mmol/L Comment:Testing performed by : [facility], [facility], [place], [address] Potassium, pl 4.2 3.3 - 4.9 mmol/L [facility] ([place]) Comment:Testing performed by : [facility], [facility], [place], [address] Chloride 104 97 - 110 mmol/L [facility] ([place]) Comment:Testing performed by : [facility], [place], [address] CO2 27 22 - 32 mmol/L [facility] ([place]) Comment:Testing performed by : [facility], [place], [address] Anion gap 11 2 - 15 mmol/L [facility] Comment:Testing performed by : [facility], [place], [address] BUN 28(H) 6 - 25 mg/dL [facility] ([place]) Comment:Testing performed by : [facility], [place], [address] Creatinine 1.34(H) 0.80 - 1.30 mg/dL [facility] ([place]) Comment:Testing performed by : [facility], [place], [address] Glucose 110 70 - 199 mg/dL [facility] ([place]) Comment: Interpretive Data Fasting glucose >/= 126 [...] was last revised 2022. Testing performed by: [facility], [place], [address] Calcium 9.3 8.5 - 10.3 mg/dL [facility] ([place]) Comment:Testing performed by : [facility], [facility], [place], [address] Bilirubin, total 0.4 0.1 - 1.2 mg/dL [facility] ([place]) Comment:Testing performed by : [facility], [facility], [place], [address] Protein, pl 6.9 6.5 - 8.5 g/dL [facility] ([place]) Comment:Testing performed by : [facility], [facility], [place], [address] Albumin 4.2 3.5 - 5.0 g/dL [facility] ([place]) Comment:Testing performed by : [place], [address] Alk phos 93 40 - 130 Units/L [facility] ([place]) Comment:Testing performed by : [facility], [place], [address] ALT 15 7 - 55 Units/L [facility] ([place]) Comment:Testing performed by : [facility], [facility], [place], [address] AST 16 10 - 50 Units/L [facility] ([place]) Comment:Testing performed by : [facility], [place], [address] Blood 09/21/2023 3:05 PM CDT 09/21/2023 4:00 PM CDT us Monika Castellano [employer] MECHANIC LAB BLOOD ORDERABLES Final Result [facility] ([place]) 1 [facility] Department [place] [address] * (ABNORMAL) CBC with auto differential (09/21/2023 3:05 PM CDT) WBC 7.1 3.8 - 9.9 K/cumm Comment:Testing performed by : [facility] [place], [address], Medical Office [address], [place] [address] Hgb 14.1 13.0 - 17.5 g/dL [facility] ([place]) Comment:Testing performed by : [facility] [address], Medical Office [facility] [address], [place] [address] Hct 46.8 38.9 - 50.3 % [facility] ([place]) Comment:Testing performed by : [facility] [address], Medical Office [address], [place] [address] Plt 211 150 - 400 K/cumm [facility] ([place]) Comment:Testing performed by : [facility] [address], Medical Office [facility] [address], [place] [address] MPV 10.0 9.1 - 12.3 fL [facility] ([place]) Comment:Testing performed by : [facility] [address], Medical Office [facility] [address], [place] [address] RBC 6.02(H) 4.30 - 5.80 M/cumm [facility] ([place]) Comment:Testing performed by : [facility] [address], Medical Office [facility] [address], [place] [address] MCV 77.7(L) 81.3 - 96.4 fL [facility] ([place]) Comment:Testing performed by : [facility] [address], Medical Office [facility] [address], [place] [address] MCH 23.4(L) 27.1 - 33.3 pg [facility] ([place]) Comment:Testing performed by : [facility] [address], Medical Office [facility] [address], [place] [address] MCHC 30.1(L) 32.3 - 35.7 g/dL [facility] ([place]) Comment:Testing performed by : [facility] [address], Medical Office [facility] [address], [place] [address] RDW CV 16.7(H) 11.1 - 14.9 % [facility] ([place]) Comment:Testing performed by : [facility] [address], Medical Office [address], [place] [address] RDW SD 45.2 35.7 - 48.1 fL [facility] ([place]) Comment:Testing performed by : [facility] [address], Medical Office [address], [place] [address] NRBC abs Not Measured 0.00 - 0.01 K/cumm [facility] CARMICHAEL ([place]) Comment:Testing performed by : [facility] [place], [address] [facility] , Medical Office [address], [place] [address] Blood 09/21/2023 3:05 PM CDT 09/21/2023 3:08 PM CDT Monika Castellano [employer] MECHANIC LAB BLOOD ORDERABLES Final Result URVASH[facility]ALINDA CARMICHAEL ([place]) 1 [facility] Department [place] [address] documented in this encounter Visit Diagnoses Diagnosis Polycythemia Polycythemia, secondary documented in this encounter Care Teams Stock Roller Relationship Specialty Start Date End Date Christine Herzog MD [address] [facility] [address] [place] [address] PCP - General Internal Medicine 12/02/21 Trey Pinedo MD [address] [facility] [place] [address] Consulting Physician Neurology 05/09/19 Albert Craft MD [address] [facility] [address] [place] [address] Consulting Physician Gastroenterology 03/11/22 Chintan Figueroa MD [address] [facility] [address] [place] [address] Consulting Physician Hematology and Oncology 03/11/22 Jameel Bloom DPM [address] [place] [address] Consulting Physician Orthotics 03/11/22 Gadiel Genao MD [address] [place] [address] Surgeon Vascular Surgery 03/11/22 documented as of this encounter
--- OUTSIDE RECORDS SUMMARY | 2024-06-18 18:05 | XMS_ITS | Encounter Summary ---
Author Organization [facility] Address [address] [place] [address] Care Team Providers Care Log Roller Name Role Phone Trey Pinedo MD Unavailable [phone] Christine Herzog MD Primary Care Provide r Albert Craft MD Unavailable [phone] Chintan Figueroa MD Unavailable [phone] Jameel Bloom DPM Unavailable [phone] Gadiel Genao MD Unavailable [phone] Encounter Details Date Type Department Care Team (Late st Contact Info) Description 12/15/2022 Telephone [facility] Medical [facility] [address] [facility] [address] [place] [address] Christine Herzog MD [address] [place] [address] [address] [place] [address] Social History Tobacco Use Types [...] often do you attend chur ch or hinduism services? Patient declined 09/28/2022 Do you belong to any clubs o r organizations such as oriental orthodox groups, unions, fraternal or athletic groups, [...] place to sleep or slept in a intermediate (including now)? No 09/28/2022 Personal Safety Answer Date Recorded Have you ever been in or are you currently in a harmful physical or emotional relationship or is someone making you feel afraid or unsafe? 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 documented in this encounter Plan of Treatment Not on file documented as of this encounter Goals Goal Patient Goal Type Associated Problems Recent Progress Patient-Stated? 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) Sepideh Guo RN Note: Problem: Potential for [...] on filedocumented in this encounter Care Teams Log Roller Relationship Specialty Start Date End Date Christine Herzog MD [address] [facility] [address] [place] [address] PCP - General Internal Medicine 12/02/21 Trey Pinedo MD [address] [facility] [address] [place] [address] Consulting Physician Neurology 05/09/19 Albert Craft MD [address] [facility] [address] [place] [address] Consulting Physician Gastroenterology 03/11/22 Chintan Figueroa MD [address] [facility] [address] [place] [address] Consulting Physician Hematology and Oncology 03/11/22 Jameel Bloom DPM [address] [place] [address] Consulting Physician Orthotics 03/11/22 Gadiel Genao MD [address] [place] [address] Surgeon Vascular Surgery 03/11/22 documented as of this encounter
--- OUTSIDE RECORDS SUMMARY | 2024-06-18 18:05 | XMS_ITS | Encounter Summary ---
Author Organization [facility] es Address [address] [place] [address] Phone Care Team Providers Care Automatic I Threading Machine Feeder Name Role Phone Trey Pinedo MD Unavailable [phone] Christine Herzog MD Primary Care Provide r Albert Craft MD Unavailable [phone] Chintan Figueroa MD Unavailable [phone] Jameel Bloom DPM Unavailable [phone] Gadiel Genao MD Unavailable [phone] Reason for Visit * Auth/Cert Specialty Diagnoses / Procedures Referred By Contac t Referred To Contact Referral ID Status Reason Start Date Expiration Date Visits Re quested Visits Authorized [id number] 1 1 Encounter Details Date Type Department Care Team (Late st Contact Info) Description 09/23/2022 11:30 AM CDT Home Care Visit [facility] Home [facility] [address] [address] [address] [place] [address] Marycarmen Cid PTA PT HOME VISIT Social History Tobacco Use Types Packs/Day Years [...] neighbors? More than three times a week 08/12/2022 How often do you get togethe r with friends or relatives? More than three times a week 08/12/2022 How often do you attend chur ch or roman catholic services? Never 08/12/2022 Do you belong to any clubs o r organizations such as yazidism groups, unions, fraternal or athletic groups, or school groups? No 08/12/2022 How often do you attend meet ings of the clubs or organizations you belong to? Never 08/12/2022 Are you , , di vorced, , never , or living with a partner? 08/12/2022 AUDIT-C Answer Date Recorded Q1: How often [...] food, housing, medical care, and heating? Not hard at all 08/12/2022 PHQ-2 Answer Date Recorded PHQ-2 Total Score (If total score is 3 or more points, staff should administer the PHQ-9) 0 09/22/2022 PRAPARE - Transportation Answer Date Re corded In the past 12 months, has l ack of transportation kept you from medical appointments or from getting medications? No 08/03 In the past 12 months, has l ack of transportation kept you from meetings, work, or from getting things needed for daily living? No 08/12/2022 Housing Stability Vital Sign Answer Marin e Recorded In the last 12 months, was t here a time when you were not able to pay the mortgage or rent on time? No 08/12/2022 In the last 12 months, how many places have you lived? 1 08/12/2022 In the last 12 months, was t here a time when you did not have a steady place to sleep or slept in a chcf (including now)? No 08/12/2022 Personal Safety Answer Date Recorded Have you ever been in or are you currently in a harmful physical or emotional relationship or is someone making you feel afraid or unsafe? 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 Gender Identity Not on file Sexual Orientation Straight 01/23/2021 10 :16 PM CDT documented as of this encounter Last Filed Vital Signs Vital Sign Reading Time Taken Comments Blood Pressure 144/78 09/23/2022 11:50 AM CDT Pulse 68 09/23/2022 11:50 AM CDT 68-1 10 Temperature 35.9 ??C (96.7 ??F) 09/23/2022 11:50 AM C DT Respiratory Rate 19 09/23/2022 11:50 AM CDT Oxygen Saturation 88% 09/23/2022 11:50 AM CDT Inhaled Oxygen Concentration - - Weight - - Height - - Body Mass Index - - documented in this encounter Miscellaneous Notes * Home Health Visit Narrative - Marycarmen Cid PTA - 09/23/2022 1:24 PM CDT SON REQUESTING BATH AIDE AND POSSIBLE CHOREWORKER; INITALLY DECLINED OFFER AT OPEN, BUT NOW FEELINGOVERWHELMED CARING FOR BOTH PARENTS IN 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 EMAILS SENT TO PT & SMOKE TESTER. * Home Health Plan for Next Visit - Marycarmen Cid PTA - 09/23/2022 11:48 AM CDT Reason for today's visit: ADDRESS SAFE GT & TRANSFER TRAINING, BALANCE TASKS. Discuss plan of care: with Pt & SON. Discharge planning: ONGOING. CERT PERIOD ENDS 10-11-22. Plan for next visit: DYNAMIC BALANCE TASKS, ADL TASKS REVIEW NO OT IN AT THIS TIME. documented in this encounter Plan of Treatment Not on file documented as of this encounter Goals Goal Patient Goal Type Associated Problems Recent Progress Patient-Stated? 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 08/16/2022 08/17/2022 11/14/2022 3:05 AM C DT documented as of this encounter Home Health Visit - Care Plan Visit Details Visit Type -PT Home Visit Discipline -Physical Therapy Problems Problem Description Start Date Status Goals Interve ntions Homebound Status Disciplines: Skilled Disciplines Patient's homebound status 08/13/2022 Active 1 goal linked to scheduled/documen akmala intervention 1 goal intervention scheduled/documen kamala in this visit Monitor patient's vital signs every home health visit Disciplines: SN, PT, OT, OUTSOLE LEVELER, CAR LOT ATTENDANT, Skilled Disciplines Monitor patient's vital signs every home health visit. 08/13/2022 Active 1 goal linked to scheduled/documen kamala intervention 1 goal intervention scheduled/documen kamala in this visit Safety concerns Disciplines: Skilled Disciplines Alteration in safety 08/13/2022 Active 1 goal linked to scheduled/documen kamala intervention 2 goal interventions scheduled/documen kamala in this visit Pain Disciplines: Core Disciplines Alteration in comfort 08/13/2022 Active 1 goal linked to scheduled/documen kamala intervention 1 goal intervention scheduled/documen kamala in this visit PT Impaired Functional Mobility/Balance Disciplines: Physical Therapy Impaired functional mobility/balance 08/17/2022 Active - 3 problem interventions scheduled/documen kamala in this visit Goals Goal Associated Problem Outcome Goal Met? Visit Notes Patient receives care at the most appropriate care setting Description: Patient receives care at the most appropriate care setting. Homebound Status No Measure vital signs during every home health visit during episode of care Description: Home glass inserter to measure vital signs during every home health visit during episode of care. Monitor patient's vital signs every home health visit No Demonstrate use of safety precautions Description: Patient/caregiver maintains safe home environment as evidenced by remaining free from injury and demonstrates use of safety precautions. Safety concerns No Report that pain has been reduced or controlled Description: Patient/caregiver/family will verbalize satisfaction with the patients level of pain and symptom control. Pain No Interventions Intervention Associated Problem/Goal Status Variance Visit Notes Homebound Status Description: Patient is homebound due to medical condition as evidenced by Requires assistance of another to leave home safely Problem:Homebound Status Goal:Patient receives care at the most appropriate care setting Completed Patient is homebound due to medical condition as evidenced by decreased cogniton, decreased balance, Requires assistance of another to leave home safely. Monitor Vital Signs Description: Monitor blood pressure, pulse, oxygen saturation, respirations Problem:Monitor patient's vital signs every home health visit Goal:Measure vital signs during every home health visit during episode of care Completed Instruct Fall Prevention Description: Instruct patient/caregiver in methods to prevent falls Problem:Safety concerns Goal:Demonstrate use of safety precautions Scheduled Assess safety Description: Assess patient safety Problem:Safety concerns Goal:Demonstrate use of safety precautions Scheduled Instruct on pain management techniques Description: Instruct in pharmacologic and nonpharmacologic pain management techniques. Problem:Pain Goal:Report that pain has been reduced or controlled Scheduled Transfer training Description: Instruct patient/caregiver and perform transfer training. Problem:PT Impaired Functional Mobility/Balance Completed MULTPLE TRIALS FROM [employer] ROWAN ; FROM KITCHEN CHAIR CGA-ROWAN WITH VERBAL & TACTILE CUES FOR PROPER HAND PLACEMENT & L UE PUSH OFF FROM TABLE. DISCUSSED TO TRY TO AVOID EXCESSIVE PUSHING & WT BEARING THROUGH R HAND CAUSING PAIN. Pt VOICES UNDERSTANDING BUT WILL REQUIRE SON & FAMILY TO REINFORCE CARRY OVER. Gait/Stair Training Description: Instruct patient/caregiver and perform gait/stair training. Problem:PT Impaired Functional Mobility/Balance Completed Pt AMB 45'X1, 20'X2, 10'X2 INDOORS LEVEL SURFACES USING WW CGA WITH VERBAL CUES FOR TECHNIQUE; ANT WW, FLEXED POSTURE, DECREASED R LE FOOT CLEARANCE/FOOT DROP NOTED, CONTINUED EDUCATION FOR IMPROVED CARRY OVER AND SAFETY. (SON REPORTS Pt ATTEMPTED TO DESCEND STEPS FROM KITCHEN TO LANDING ON HIS OWN WITHOUT ASSIST EARIER THIS DATE. DISCUSSED MAY TRY PLACING PATTERNED BLACK/WHITE RUG IN FRONT OF DOORWAY TO DETER Pt. SON MAY TRY.) Balance Training/Activities Description: Instruct patient/caregiver and perform balance training activities. Problem:PT Impaired Functional Mobility/Balance Completed Pt PERFORMS NARROW RASHAWN STANCE WITH & WITHOUT L UE SUPPORT F/F-. UNABLE TO MAINTAIN NL RASHAWN WITH EYES CLOSED WITHOUT LOB REQUIRING MIN A TO REGAIN. RECIPROCAL TAP UPS X 12 REPS WITH L UE SUPPORT AND CGA FOR SAFETY. FAIR TOLERANCE. R LE STEP OVERS (OVER OBJECT ON FLOOR) 5 REPS X4 WITH CGA-ROWAN & L UE ON WW. UNABLE TO PERFORM WITHOUT UE SUPPORT. documented in this encounter Care Teams Automatic I Threading Machine Feeder Relationship Specialty Start Date End Date Christine Herzog MD [address] [facility] [address] [place] [address] PCP - General Internal Medicine 12/02/21 Trey Pinedo MD [address] [place] [address] Consulting Physician Neurology 05/09/19 Albert Craft MD [address] [facility] [place] [address] Consulting Physician Gastroenterology 03/11/22 Chintan Figueroa MD [address] [facility] [place] [address] Consulting Physician Hematology and Oncology 03/11/22 Jameel Bloom DPM [address] [place] [address] Consulting Physician Orthotics 03/11/22 Gadiel Genao MD [address] [place] [address] Surgeon Vascular Surgery 03/11/22 documented as of this encounter
--- OUTSIDE RECORDS SUMMARY | 2024-06-18 18:05 | XMS_ITS | Encounter Summary ---
Author Organization [facility] Address [address] [place] [address] Care Team Providers Care Ancillary Services Manager Therapy Name Role Phone Trey Pinedo MD Unavailable [phone] Christine Herzog MD Primary Care Provide r Albert Craft MD Unavailable [phone] Chintan Figueroa MD Unavailable [phone] Jameel Bloom DPM Unavailable [phone] Gadiel Genao MD Unavailable [phone] Reason for Visit * Reason Comments Successful Phone Call Encounter Details Date Type Department Care Team (Late st Contact Info) Description 09/26/2022 [facility] ED Outreach [facility] Accountable Care Organization [address] [place] [id number] Lexii Arnold MA [address] [facility] [address] [place] [address] Social History Tobacco Use Types Packs/Day Years [...] you attend chur ch or jewish services? Never 08/12/2022 Do you belong to [...] slept in a alf (including now)? No 08/12/2022 Personal Safety Answer Date Recorded Have you ever been in or are you currently in a harmful physical or emotional relationship or is someone making you feel afraid or unsafe? 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 on 09/25 for eval hand from previous fall on 09/16 skin tear looks good. 76 y.o. male presenting to the ED c/o right hand pain. He states that approximately a week ago he fell in bathroom and hurt his right hand, he was seen at Hospital, had x-ray done that does not show any fracture that time, however today he noticed worsening of the pain along with bruising and swelling so he came in here for further evaluation. Status of Reason for ED Visit - Same Status Details: - Spoke with Son Ian, which stated pt was in lot of pain, which he didn't complainof pain prior. Stated his hand and knuckles were hurting. PCP stated at the visit would like to geta repeat xray done. Ian stated he was hurting so bad that he went ahead and took him in to get it done. Did not show any fractures, told to ice, elevate and tylenol. Pt has HH coming in today. Son stated would like to see about getting a HH aide coming in to give baths, help around house a bit. Son stated he has been doing it for last month or so, and would like to see if can help see about aide. Discharge Instructions Reviewed - Yes Details: - Medication Reconciliation Completed - Patient states that no new medications were given when discharged from the hospital and no medications were changed on her medication list Details: - ED Follow-Up Appointment - declined at this time was just seen Details: - Patient educated about same day sick appts at PCP office and when to utilize office vs urgent care vs ED. Pt verbalized understanding of information presented. Referring patient to for help getting aide. documented in this encounter Plan of Treatment Not on file documented as of this encounter Goals Goal Patient Goal Type Associated Problems Recent Progress Patient-Stated? 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) Sepideh Guo RN Note: Problem: Potential for [...] C DT documented as of this encounter Care Teams Ancillary Services Manager Therapy Relationship Specialty Start Date End Date Christine Herzog MD [address] [facility] [address] [place] [address] PCP - General Internal Medicine 12/02/21 Trey Pinedo MD [address] [facility] [address] [place] [address] Consulting Physician Neurology 05/09/19 Albert Craft MD [address] [place] [address] [address] [place], [place] [address], [place] [address] Consulting Physician Gastroenterology 03/11/22 Chintan Figueroa MD [address] [place] [address] [place] [address] Consulting Physician Hematology and Oncology 03/11/22 Jameel Bloom DPM [address] [place] [address] Consulting Physician Orthotics 03/11/22 Gadiel Genao MD [address] [place] [address] Surgeon Vascular Surgery 03/11/22 documented as of this encounter
--- OUTSIDE RECORDS SUMMARY | 2024-06-18 18:05 | XMS_ITS | Encounter Summary ---
Author Organization [facility] Address [address] [place] [address] Care Team Providers Care Media Relations Manager Name Role Phone Trey Pinedo MD Unavailable [phone] Christine Herzog MD Primary Care Provide r Albert Craft MD Unavailable [phone] Chintan Figueroa MD Unavailable [phone] Jameel Bloom DPM Unavailable [phone] Gadiel Genao MD Unavailable Reason for Visit * Reason Comments ER Follow Up Fall- skin tear on h and Encounter Details Date Type Department Care Team (Late st Contact Info) Description 09/22/2022 1:30 PM CDT Office Visit [facility] Primary Care at [address] [place] [id number] Anastasia Ervin, TERRAZZO HELPER [address] [place] [address] Encounter for follow-up examination after completed treatment for conditions other than malignant neoplasm (Primary Dx); Laceration of right hand with complication, initial encounter; Hematoma Social History Tobacco Use Types Packs/Day Years Used Date Smoking Tobacco: Former Cigarettes 1 40 1 969 - 2009 Smokeless Tobacco: Never Tobacco Cessation:Counseling Given: Not Answered Comments:Quit in 2010 Alcohol Use Standard Drinks/Week Comments No 0 (1 standard drink = 0.6 oz pur e alcohol) Social Connection and Isolat ion Panel [NHANES] Answer Date Recorded In a typical week, how many times do you talk on the phone with family, friends, or neighbors? More than three times a week 08/12/2022 How often do you get togethe r with friends or relatives? More than three times a week 08/12/2022 How often do you attend chur ch or episcopal services? Never 08/12/2022 Do you belong to [...] place to sleep or slept in a penitentiary (including now)? 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 Gender Identity Not on file Sexual Orientation Straight 01/23/2021 10 :16 PM CDT documented as of this encounter Last Filed Vital Signs Vital Sign Reading Time Taken Comments Blood Pressure 138/80 09/22/2022 1:29 PM CDT Pulse 65 09/22/2022 1:29 PM CDT Temperature - - Respiratory Rate 16 09/22/2022 1:29 PM CDT Oxygen Saturation 98% 09/22/2022 1:29 PM CDT Inhaled Oxygen Concentration - - Weight 79.5 kg (175 lb 3.2 oz) 09/22/2022 1:29 P M CDT Height 170.2 cm (5' 7.01 ) 09/22/2022 1:29 PM CD T Body Mass Index 27.43 09/22/2022 1:29 PM CDT documented in this encounter Patient Instructions * Patient Instructions* Anastasia Ervin NP - 09/22/2022 1:30 PM CDT My medical front desk specialist,Arianna, and I are thankful you have trusted [...] if you were not feeling your best! -Anastasia BAH-C documented in this encounter Progress Notes * Anastasia Ervin NP - 09/22/2022 1:30 PM CDT Subjective/Objective Patient ID: Villa Zuniga is a 76 y.o. male. Chief Complaint ER Follow Up (Fall- skin tear on hand ) HPI Pleasant 76 y.o male presents for an ER follow up to discuss a recent fall with injury to his righthand. Patient son present in room. Patient states he was on the commode, stood up and lost his balance, fell forward. Denies LOC, dizziness, headache, neck pain, or other injury following the fall. Patient son states the only evidence they could find that showed a fall happened, was the blood hiswife found in the bathroom sink, nothing on floor, wall, or tub. Patient sustained a skin tear to the dorsal region of right hand, and in ER, hemostasis was achieved with direct pressure. Tetanus was administered during the ER visit. Patient son concerned about whether an infection may be present due to not seeming to be healing, states swelling seems to be worse and has more bruising Review of Systems Constitutional: Negative. Respiratory: Negative. Cardiovascular: Negative. Skin: Positive for color change and wound. Neurological: Negative. Psychiatric/Behavioral: Negative. Vitals: 09/22/22 1329 BP: 138/80 BP Location: Left arm Patient Position: Sitting Pulse: 65 Resp: 16 SpO2: 98% Weight: 79.5 kg (175 lb 3.2 oz) Height: 170.2 cm (5' 7.01 ) Physical Exam Constitutional: Appearance: Normal appearance. HENT: Head: Normocephalic and atraumatic. Cardiovascular: Rate and Rhythm: Normal rate and regular rhythm. Heart sounds: Normal heart sounds. Pulmonary: Effort: Pulmonary effort is normal. Breath sounds: Normal breath sounds. Musculoskeletal: General: Swelling and tenderness present. Comments: 1+ edema to right hand and fingers Tenderness elicited with touch to dorsal region of right hand Skin: Findings: Bruising present. Comments: Purplish ecchymosis to right hand and fingers, Yellowish green ecchymosis to left brachial region of [id number]-zlh-plztpe with palpation Hematoma with dried sanguinous drainage present to right dorsal hand Neurological: Mental Status: He is alert and oriented to person, place, and time. Psychiatric: Mood and Affect: Mood normal. Behavior: Behavior normal. Thought Content: Thought content normal. Judgment: Judgment normal. Assessment/Plan Latest Reference Range & Units 09/22/22 14:30 WBC 3.8 - 9.9 K/cumm 5.5 Hgb 13.0 - 17.5 g/dL 14.1 Hct 38.9 - 50.3 % 44.4 Plt 150 - 400 K/cumm 190 MPV 9.1 - 12.3 fL 10.5 RBC 4.30 - 5.80 M/cumm 5.30 MCV 81.3 - 96.4 fL 83.8 MCH 27.1 - 33.3 pg 26.6 (L) MCHC 32.3 - 35.7 g/dL 31.8 (L) RDW CV 11.1 - 14.9 % 14.6 RDW SD 35.7 - 48.1 fL 45.0 NRBC abs 0.00 - 0.01 K/cumm Not Measured Neutrophil abs 1.7 - 6.5 K/cumm 3.9 Imm gran abs 0.0 - 0.1 K/cumm 0.0 Lymphocyte abs 0.8 - 3.3 K/cumm 0.9 Monocyte abs 0.2 - 0.8 K/cumm 0.5 Eosinophil abs 0.0 - 0.5 K/cumm 0.2 Basophil abs 0.0 - 0.1 K/cumm 0.1 Neutrophil pct % 69.9 Imm gran pct % 0.0 Lymphocyte pct % 16.4 Monocyte pct % 8.2 Eosinophil pct % 3.5 Basophil pct % 2.0 (L): Data is abnormally low Right hand x-ray results 09/16/22 COMPARISON: Right hand radiographs 10/15/2016 FINDINGS: BONES/JOINTS: No definite acute fracture or dislocation. 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 Significant degenerative change also present at the 1st carpometacarpal joint and the triscaphe joint. Qukn-be-nyxsftcy 1st interphalangeal and 2nd through 5th distal interphalangeal degeneration. SOFT TISSUES: Marked soft tissue swelling along the dorsum of the hand. Severe atherosclerotic calcifications. OTHER: No other significant finding. IMPRESSION: Marked soft tissue swelling along the dorsum of the hand. No definite fracture seen. Significant degenerative changes as above. (Albino Bell M.D.) Diagnoses and all orders for this visit: Encounter for follow-up examination after completed treatment for conditions other than malignant neoplasm (Primary) Assessment & Plan: I personally reviewed patient ER visit documentation, imaging and labs. No new medications or changes prescribed upon discharge Return to office with pcp as scheduled Laceration of right hand with complication, initial encounter Assessment & Plan: Clean hand with warm soapy water, rinse , pat dry Continue with topical antibiotic ointment, apply non-adherent telfa dressing and wrap with kerlix gauze, secure with tape Hematoma Assessment & Plan: Ice at 20 minute interval Elevated hand on pillows to help reduce swelling Ordered x-ray to be completed in 4 days after swelling improved to evaluate for possible fracture Side effects, risks, interactions reviewed with patient. Indications for testing discussed. Any further problems to contact us. He was told what to look out for and verbalized understanding. The patient was given the opportunity to have all questions answered today and was in agreement with the plan of care. documented in this encounter Miscellaneous Notes * Assessment & Plan Note - Anastasia Ervin NP - 09/22/2022 4:53 PM CDT Associated Problem(s): Hematoma Ice at 20 minute interval Elevated hand on pillows to help reduce swelling Ordered x-ray to be completed in 4 days after swelling improved to evaluate for possible fracture * Assessment & Plan Note - Anastasia Ervin NP - 09/22/2022 4:50 PM CDT Associated Problem(s): Laceration of hand, right, complicated Clean hand with warm soapy water, rinse , pat dry Continue with topical antibiotic ointment, apply non-adherent telfa dressing and wrap with kerlix gauze, secure with tape * Assessment & Plan Note - Anastasia Ervin NP - 09/22/2022 4:42 PM CDT Associated Problem(s): Encounter for follow-up examination after completed treatment for conditionsother than malignant neoplasm I personally reviewed patient ER visit documentation, imaging and labs. No new medications or changes prescribed upon discharge Return to office with pcp as scheduled documented in this encounter Plan of Treatment Not on file documented as of this encounter Goals Goal Patient Goal Type Associated Problems Recent Progress Patient-Stated? 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 08/16/2022 08/17/2022 11/14/2022 3:05 AM C DT documented as of this encounter Care Teams Media Relations Manager Relationship Specialty Start Date End Date Christine Herzog MD [address] [place] [address] PCP - General Internal Medicine 12/02/21 Trey Pinedo MD [address] [place] [address] [address] [place] [address] Consulting Physician Neurology 05/09/19 Albert Cratf MD [address] [place] [address] Consulting Physician Gastroenterology 03/11/22 Chintan Figueroa MD [address] [place] [address] [place] [address] Consulting Physician Hematology and Oncology 03/11/22 Jameel Bloom DPM [address] [place] [address] Consulting Physician Orthotics 03/11/22 Gadiel Genao MD [address] [place] [address] Surgeon Vascular Surgery 03/11/22 documented as of this encounter
--- OUTSIDE RECORDS SUMMARY | 2024-06-18 18:05 | XMS_ITS | Encounter Summary ---
Author Organization [facility] Address [address] [place] [id number] Care Team Providers Care Director Public Policy Name Role Phone Trey iPnedo MD Unavailable [phone] Christine Herzog MD Primary Care Provide r Albert Craft MD Unavailable [phone] Chintan Figueroa MD Unavailable [phone] Jameel Bloom DPM Unavailable [phone] Gadiel Genao MD Unavailable [phone] Encounter Details Date Type Department Care Team (Late st Contact Info) Description 12/27/2022 Telephone [facility] Cardiology [address] [place] [phone] Martina Ennis MA Social History Tobacco Use Types Packs/Day [...] often do you attend chur ch or islam services? Patient declined 09/28/2022 Do you belong to any clubs o r organizations such as mandaeism groups, unions, fraSequenta or athletic groups, or school groups? Patient [...] place to sleep or slept in a nursing home (including now)? No 09/28/2022 Personal Safety Answer Date Recorded Have you ever been in or are you currently in a harmful physical or emotional relationship or is someone making you feel afraid or unsafe? 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 Gender Identity Not on file Sexual Orientation Straight 01/23/2021 10 :16 PM CDT documented as of this encounter Ordered Prescriptions Prescription Sig Dispense Quantity Refills Last Filled Start Date End Date amLODIPine (NORVASC) 5 mg tablet Take 1 tablet (5 mg total) by mouth daily 90 tablet 3 12/27/2022 09/25/2023 amLODIPine (NORVASC) 2.5 mg tablet Take 1 tablet (2.5 mg total) by mouth daily 90 tablet 3 12/27/2022 12/27/2022 documented in this encounter Miscellaneous Notes * Telephone Encounter - Martina Ennis MA - 12/27/2022 9:15 AM CDT Rx for 5 mg of amlodipine for 90 days with 3 refills sent to [facility] documented in this encounter Plan of Treatment Not on file documented as of this encounter Goals Goal Patient Goal Type Associated Problems Recent Progress Patient-Stated? 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) Sepideh Guo, SUE Note: Problem: Potential for [...] Diagnoses Not on filedocumented in this encounter Discontinued Medications Medication Sig Discontinue Reason Start Date End Da te amLODIPine (NORVASC) 2.5 mg tablet TAKE 1 TABLET BY MOUTH DAILY Reorder 12/19/2022 12/27/2022 amLODIPine (NORVASC) 2.5 mg tablet Take 1 tablet (2.5 mg total) by mouth daily Dose adjustment 12/27/2022 12/27/2022 documented as of this encounter Care Teams Director Public Policy Relationship Specialty Start Date End Date Christine Herzog MD [address] [place] [address] PCP - General Internal Medicine 12/02/21 Trey Pinedo MD [address] [place] [address] [address] [place] [address] Consulting Physician Neurology 05/09/19 Albert Craft MD [address] [place] [address] [address] [place] [address] Consulting Physician Gastroenterology 03/11/22 Chintan Figueroa MD [address] [place] [address] [address] [place] [address] Consulting Physician Hematology and Oncology 03/11/22 Jameel Bloom DPM [address] [place] [address] Consulting Physician Orthotics 03/11/22 Gadiel Genao MD [address] [place] [address] Surgeon Vascular Surgery 03/11/22 documented as of this encounter
--- OUTSIDE RECORDS SUMMARY | 2024-06-18 18:05 | XMS_ITS | Encounter Summary ---
Author Organization [facility] Healthcare Address [address] [place] [address] Care Team Providers Care Charcoal Burner Beehive Kiln Name Role Phone Trey Pinedo MD Unavailable [phone] Christine Hrezog MD Primary Care Provide r Albert Craft MD Unavailable [phone] Chintan Figueroa MD Unavailable [phone] Jameel Bloom DPM Unavailable [phone] Gadiel Genao MD Unavailable [phone] Reason for Referral * Diagnostic Imaging (Routine) - Closed Specialty Diagnoses / Procedures Referred By Contac t Referred To Contact Diagnoses Paroxysmal atrial fibrillation (CMS/HCC) (HCC) Bradycardia Pulmonary hypertension (HCC) Biatrial enlargement Nonrheumatic tricuspid valve regurgitation Mixed hyperlipidemia Essential hypertension 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 Procedures NM MPI SPECT (Rest and/or Stress) Multiple Studies Bijal Galindo MD Phone: tel: fax: [address] [phone] Referral ID Status Reason Start Date Expiration Date Visits Re quested Visits Authorized [id number] Closed 09/06/2022 10/06/2023 1 1 Reason for Visit * Diagnostic Imaging (Routine) - Closed Specialty Diagnoses / Procedures Referred By Contac t Referred To Contact Diagnoses Paroxysmal atrial fibrillation (CMS/HCC) (HCC) Bradycardia Pulmonary hypertension (HCC) Biatrial enlargement Nonrheumatic tricuspid valve regurgitation Mixed hyperlipidemia Essential hypertension 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 Procedures NM MPI SPECT (Rest and/or Stress) Multiple Studies Bijal Galinod MD Phone: tel: fax: [address] [phone] Referral ID Status Reason Start Date Expiration Date Visits Re quested Visits Authorized [id number] Closed 09/06/2022 10/06/2023 1 1 Encounter Details Date Type Department Care Team (Latest Contact Info) Description 11/03/2022 11:51 AM CDT - 11/03/2022 11:59 PM CDT Hospital Encounter [facility] Nuclear Medicine [address] [place] [address] [id number] Paroxysmal atrial fibrillation (CMS/HCC) (HCC); Bradycardia; Pulmonary hypertension (HCC); Biatrial enlargement; Nonrheumatic tricuspid valve regurgitation; Mixed hyperlipidemia; Essential hypertension; 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 Patient declined 09/28/2022 Do you belong to any clubs o r organizations such as synagogue groups, unions, fraternal or athletic groups, or [...] place to sleep or slept in a longterm (including now)? No 09/28/2022 Personal Safety Answer Date Recorded Have you ever been in or are you currently in a harmful physical or emotional relationship or is someone making you feel afraid or unsafe? 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 Gender Identity Not on file Sexual Orientation Straight 01/23/2021 10 :16 PM CDT documented as of this encounter Medications at Time of Discharge aspirin 81 mg tablet Take one by mouth one time per day 0 0 06/27/2008 amLODIPine (NORVASC) 2.5 mg tablet Take 1 tablet (2.5 mg total) by mouth daily 45 tablet 1 10/10/2022 12/19/2022 apixaban (ELIQUIS) 5 mg tabletIndications: atrial fibrillation Take 1 tablet (5 mg total) by mouth 2 (two) times a day 180 tablet 1 10/10/2022 03/13/2023 atorvastatin (LIPITOR) 40 mg tablet TAKE 1 TABLET BY MOUTH DAILY 90 tablet 10/14/2022 12/15/2022 finasteride (PROSCAR) 5 mg tabletIndications: benign prostatic hyperplasia with lower urinary tract sx Take 1 tablet (5 mg total) by mouth daily 90 tablet 3 10/18/2022 10/12/2023 lisinopriL (PRINIVIL,ZESTRIL) 20 mg tablet Take 1 tablet (20 mg total) by mouth daily 90 tablet 1 10/10/2022 02/06/2023 magnesium oxide (MAG-OX) 400 mg (241.3 mg elemental magnesium) tabletIndications: hypomagnesemia Take 1 tablet (400 mg total) by mouth 2 (two) times a day 180 tablet 1 10/10/2022 12/28/2022 memantine (NAMENDA) 5 mg tablet Take 1 tablet (5 mg total) by mouth 2 (two) times a day 60 tablet 11 09/19/2022 01/24/2023 metoprolol XL (TOPROL-XL) 25 mg extended release tablet TAKE 1 TABLET BY MOUTH DAILY 90 tablet 1 09/12/2022 11/16/2022 documented as of this encounter Discharge Disposition Disposition Code Departure Means Destination Discharge to home or self care documented in this encounter Plan of Treatment Not on file documented as of this encounter Goals Goal Patient Goal Type Associated Problems Recent Progress Patient-Stated? 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 NM MPI SPECT (REST AND/OR STRESS) MULTIPLE STUDIES Schedule Routine, Read Routine (OP Routine) 11/03/2022 2:30 PM CDT Paroxysmal atrial fibrillation (CMS/HCC) (HCC) Bradycardia Pulmonary hypertension (HCC) Biatrial enlargement Nonrheumatic tricuspid valve regurgitation Mixed hyperlipidemia Essential hypertension 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 Electrocardiographic portion of study was dictated in a separate report. PROCEDURE Patient received 11 millicuries technetium-99m Myoview at rest and 33.0 millicuries technetium-99m Myoview with stress via a right antecubital vein. ??The patient underwent SPECT imaging after both rest and stress injections. ??The patient did not undergo prone imaging. ??The study was gated during the stress acquisition phase. INTERPRETATION Raw data reveals moderate motion artifact. ??No inappropriate uptake of tracer. ??The stress tomographic image reveals mildly decreased uptake of tracer in the apex. ??However, the resting image appears to be more pronounced and the stress image appears to be smaller and less intense of a defect. ??It is a fixed apical defect most consistent with apical thinning artifact with no evidence of ischemia. ??The left ventricular cavity size is normal with a TID index of 1.03. ??The gated images reveal normal wall motion and calculated left ventricular systolic ejection fraction of 65%. CONCLUSIONS 1. No evidence of ischemia left ventricle. 2. Fixed apical defect with normal apical wall motion most consistent with apical thinning artifact. 3. Normal left ventricular cavity size, wall motion, TID index and calculated left ventricular systolic ejection fraction of 65%. ?? Compared to a previous study, which was last done on 08/17/2012, reversible ischemia of the septal wall and partial reversibility of the inferior wall associated with wall motion abnormalities are no longer seen. ??The ejection fraction is improved from 48% up to 65%. 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 Paroxysmal atrial fibrillation (CMS/HCC) (HCC) Atrial fibrillation Bradycardia Other specified cardiac dysrhythmias Pulmonary hypertension (HCC) 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 Mixed hyperlipidemia Essential hypertension Unspecified essential hypertension 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 documented in this encounter Administered Medications Inactive Administered Medications - up to 3 most recent administrations Medication Order MAR Action Action Date Dose Rate Site tc-99m tetrofosmin (MYOVIEW) injection 11 millicurie 11 millicurie, intravenous, Once in imaging, radiopharmaceutical, Starting on Hyacinth 11/03/22 at 1231, For 1 dose, Indications: Diagnostic RadiographyIndications:Diag nostic Radiography Given 11/03/2022 12:31 PM CDT 11 millicuries documented in this encounter Orders Medications Ordered That Reg ht Not Have Been Administered Count Last Ordered Date First Ordered Date tc-99m tetrofosmin (MYOVIEW) injection 11 millicurie 1 11/03/2022 documented in this encounter Additional Health Concerns Infection Onset Date Last Indicated Resolved Time COVID: Recovered Comment:Added based on recent COVID infection. 08/16/2022 08/17/2022 11/14/2022 3:05 AM C DT documented as of this encounter Care Teams [employer] Relationship Specialty Start Date End Date Christine Herzog MD [address] [facility] [place] [address] PCP - General Internal Medicine 12/02/21 Trey Pinedo MD [address] [place] [address] [address] [place] [address] Consulting Physician Neurology 05/09/19 Albert Craft MD 2 [facility] [place] [address] Consulting Physician Gastroenterology 03/11/22 Chintan Figueroa MD [address] [facility] [place] [address] Consulting Physician Hematology and Oncology 03/11/22 Jameel Bloom DPM [address] [place] [address] Consulting Physician Orthotics 03/11/22 Gadiel Genao MD [address] [place] [address] Surgeon Vascular Surgery 03/11/22 documented as of this encounter
--- OUTSIDE RECORDS SUMMARY | 2024-06-18 18:05 | XMS_ITS | Encounter Summary ---
Author Organization [facility] Healthcare Address [address] [place] [address] Care Team Providers Care Swatch Checker Name Role Phone Trey Pinedo MD Unavailable [phone] Christine Herzog MD Primary Care Provide r Albert Craft MD Unavailable [phone] Chintan Figueroa MD Unavailable [phone] Jameel Bloom DPM Unavailable [phone] Gadiel Genao MD Unavailable [phone] Encounter Details Date Type Department Care Team (Late st Contact Info) Description 09/22/2022 2:00 PM CDT Lab [facility] [address] [facility] [address] [place] [id number] Polycythemia Social History Tobacco Use Types Packs/Day [...] often do you attend chur ch or christianity services? Never 08/12/2022 Do you belong to any clubs o r organizations such as shinto groups, unions, fraternal or athletic groups, or [...] slept in a fpc (including now)? 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 Gender Identity Not on file Sexual Orientation Straight 01/23/2021 10 :16 PM CDT documented as of this encounter Last Filed Vital Signs Vital Sign Reading Time Taken Comments Blood Pressure 161/75 09/22/2022 2:25 PM CDT Pulse 62 09/22/2022 2:25 PM CDT Temperature 35.8 ??C (96.5 ??F) 09/22/2022 2:25 PM CD T Respiratory Rate 16 09/22/2022 2:25 PM CDT Oxygen Saturation 99% 09/22/2022 2:25 PM CDT Inhaled Oxygen Concentration - - Weight 79.5 kg (175 lb 3.2 oz) 09/22/2022 2:25 P M CDT Height - - Body Mass Index 27.43 09/22/2022 1:29 PM CDT documented in this encounter Plan of Treatment Not on file documented as of this encounter Goals Goal Patient Goal Type Associated Problems Recent Progress Patient-Stated? 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 EXERCISE SPECIALIST) Sepideh Guo RN Note: Problem: Potential [...] Date/Time Associated Diagnosis Comments DIFFERENTIAL AUTO Routine 09/22/2022 2:3 0 PM CDT Polycythemia CBC WITH AUTO DIFFERENTIAL Routine 09/22/2022 2:30 PM CDT Polycythemia documented in this encounter Results * Differential, auto (09/22/2022 2:30 PM CDT) Neutrophil abs 3.9 1.7 - 6.5 K/cumm [facility] ([facility]) Imm gran abs 0.0 0.0 - 0.1 K/cumm [facility] ([facility]) Lymphocyte abs 0.9 0.8 - 3.3 K/cumm [facility] ([facility]) Monocyte abs 0.5 0.2 - 0.8 K/cumm [facility] ([facility]) Eosinophil abs 0.2 0.0 - 0.5 K/cumm [facility] ([facility]) Basophil abs 0.1 0.0 - 0.1 K/cumm [facility] ([facility]) Neutrophil pct 69.9 % [facility] ([facility] Comment: Interpretive Data Percent cell count reference ranges are not reported, since discordance with absolute values may lead to misinterpretation of CBC data. Current Interpretive Data was last revised on 2022. Imm gran pct 0.0 % [facility] ([facility]) Comment: Interpretive Data Percent cell count reference ranges are not reported, since discordance with absolute values may lead to misinterpretation of CBC data. Current Interpretive Data was last revised on 2022. Lymphocyte pct 16.4 % [facility] ([facility] Comment: Interpretive Data Percent cell count reference ranges are not reported, since discordance with absolute values may lead to misinterpretation of CBC data. Current Interpretive Data was last revised on 2022. Monocyte pct 8.2 % [facility] ([facility]) Comment: Interpretive Data [...] was last revised on 2022. Basophil pct 2.0 % [facility] ([facility] Comment: Interpretive Data Percent cell count reference ranges are not reported, since discordance with absolute values may lead to misinterpretation of CBC data. Current Interpretive Data was last revised on 2022. Blood 09/22/2022 2:30 PM CDT 09/22/2022 2:31 PM CDT us Monika D. Biciocchi [facility] LAB BLOOD ORDERABLES Final Result [facility] ([facility]) [address] [facility] [place] [address] * (ABNORMAL) CBC with auto differential (09/22/2022 2:30 PM CDT) WBC 5.5 3.8 - 9.9 K/cumm [facility] ([facility]) Hgb 14.1 13.0 - 17.5 g/dL [facility] ([facility]) Hct 44.4 38.9 - 50.3 % [facility] ([facility]) Plt 190 150 - 400 K/cumm [facility] ([facility]) MPV 10.5 9.1 - 12.3 fL [facility] ([facility]) RBC 5.30 4.30 - 5.80 M/cumm [facility] ([facility]) MCV 83.8 81.3 - 96.4 fL [facility] ([facility]) MCH 26.6(L) 27.1 - 33.3 pg [facility] ([facility]) MCHC 31.8(L) 32.3 - 35.7 g/dL [facility] ([facility]) RDW CV 14.6 11.1 - 14.9 % [facility] ([facility] RDW SD 45.0 35.7 - 48.1 fL [facility] ([facility]) NRBC abs Not Measured 0.00 - 0.01 K/cumm [facility] ([facility]) Blood 09/22/2022 2:30 PM CDT 09/22/2022 2:31 PM CDT Narrative [facility] ([facility]) - 09/22/2022 2:33 PM CDT Start in June us Monika Castellano [facility] BLOOD ORDERABLES Final Result [facility] ([facility]) [address] [facility] Department [place] [address] documented in this encounter Visit Diagnoses Diagnosis Polycythemia Polycythemia, secondary documented in this encounter Orders Appointment Requests Count Last Ordered Date Fi rst Ordered Date ONCBCN LAB APPOINTMENT 1 09/22/2022 documented in this encounter Additional Health Concerns Infection Onset Date Last Indicated Resolved Time COVID: Recovered Comment:Added based on recent COVID infection. 08/16/2022 08/17/2022 11/14/2022 3:05 AM C DT documented as of this encounter Care Teams Swatch Checker Relationship Specialty Start Date End Date Christine Herzog MD [address] [facility] [address] [place] [address] PCP - General Internal Medicine 12/02/21 Trey Pinedo MD [address] [facility] [address] [place] [address] Consulting Physician Neurology 05/09/19 Albert Craft MD [address] [facility] [address] [place] [address] Consulting Physician Gastroenterology 03/11/22 Chintan Figueroa MD [address] [facility] [address] [place] [address] Consulting Physician Hematology and Oncology 03/11/22 Jameel Bloom DPM [address] [place] [address] Consulting Physician Orthotics 03/11/22 Gadiel Genao MD [address] [place] [address] Surgeon Vascular Surgery 03/11/22 documented as of this encounter
--- OUTSIDE RECORDS SUMMARY | 2024-06-18 18:05 | XMS_ITS | Encounter Summary ---
Author Organization [facility] Healthcare Address [address] [place] [address] Care Team Providers Care Dust Collector Treater Name Role Phone Trey Pinedo MD Unavailable [phone] Christine Herzog MD Primary Care Provide r Albert Craft MD Unavailable [phone] Chintan Figueroa MD Unavailable [phone] Jameel Bloom DPM Unavailable [phone] Gadiel Genao MD Unavailable [phone] Encounter Details Date Type Department Care Team (Late st Contact Info) Description 01/26/2023 12:30 PM CDT [address] [address] Benign prostatic hyperplasia with lower urinary tract symptoms, symptom details unspecified; Healthcare maintenance; Type 2 diabetes mellitus without complication, unspecified whether half-way insulin use (HCC) Social History Tobacco Use Types Packs/Day [...] on file 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 Author GULSHAN General Goal - Patient schedules and keeps appointments with all recommended providers ACO Care Management On track(2022 11:14 AM OPERATIONAL TEST MECHANIC) Sepideh Guo, SUE Note: Problem: Potential [...] Priority Date/Time Associated Diagnosis Comments EGFR Routine 01/26/2023 12:39 PM CDT Healthcare maintenance DIFFERENTIAL AUTO Routine 01/26/2023 12: 39 PM CDT Healthcare maintenance PSA SCREEN Routine 01/26/2023 12:39 PM CDT Benign prostatic hyperplasia with lower urinary tract symptoms, symptom details unspecified CBC WITH AUTO DIFFERENTIAL Routine 01/26/2023 12:39 PM CDT Healthcare maintenance HEMOGLOBIN A1C Routine 01/26/2023 12:39 PM CDT Healthcare maintenance Type 2 diabetes mellitus without complication, unspecified whether half-way insulin use (HCC) LIPID PANEL Routine 01/26/2023 12:39 PM CDT Healthcare maintenance COMPREHENSIVE METABOLIC PANEL Routine 01/26/2023 12:39 PM CDT Healthcare maintenance ALBUMIN CREATININE RATIO, URINE Routine 01/26/2023 12:38 PM CDT Healthcare maintenance documented in this encounter Results * eGFR (01/26/2023 12:39 PM CDT) eGFR 52 mL/min/1. 73 m2 [facility] ([place]) Comment: Interpretive Data Reference Interval Normal [...] interpretive data was last reviewed 2021. Blood 01/26/2023 12:3 9 PM CDT 01/26/2023 1:56 PM CDT us Christine Herzog MD LAB BLOOD ORDERABLES Final Result [facility] ([place]) 1 [facility] Department [place] [address] * (ABNORMAL) Differential, auto (01/26/2023 12:39 PM CDT) Neutrophil abs 4.9 1.7 - 6.5 K/cumm [facility] ([place]) Imm gran abs 0.0 0.0 - 0.1 K/cumm [facility] ([place]) Lymphocyte abs 1.5 0.8 - 3.3 K/cumm [facility] ([place]) Monocyte abs 1.0(H) 0.2 - 0.8 K/cumm [facility] ([place]) Eosinophil abs 0.3 0.0 - 0.5 K/cumm [facility] ([place]) Basophil abs 0.2(H) 0.0 - 0.1 K/cumm [facility] ([place]) Neutrophil pct 62.2 % [facility] ([place]) Comment: Interpretive [...] was last revised on 2017. Lymphocyte pct 18.8 % [facility] ([place]) Comment: Interpretive Data Percent cell count reference ranges are not reported, since discordance with absolute values may lead to misinterpretation of CBC data. Current Interpretive Data was last revised on 2017. Monocyte pct 12.3 % [facility] ([place]) Comment: Interpretive Data Percent cell count reference ranges are not reported, since discordance with absolute values may lead to misinterpretation of CBC data. Current Interpretive Data was last revised on 2017. Eosinophil pct 4.4 % [facility] ([place]) Comment: Interpretive Data Percent cell count reference ranges are not reported, since discordance with absolute values may lead to misinterpretation of CBC data. Current Interpretive Data was last revised on 2017. Basophil pct 1.9 % [facility] ([place]) Comment: Interpretive Data Percent cell count reference ranges are not reported, since discordance with absolute values may lead to misinterpretation of CBC data. Current Interpretive Data was last revised on 2017. Blood 01/26/2023 12:3 9 PM CDT 01/26/2023 1:56 PM CDT Christine Herzog MD LAB BLOOD ORDERABLES Final Result Performing Organization Address [facility] Co de Phone Number [facility] ([place]) [address] [facility] [place] [address] * (ABNORMAL) Hemoglobin A1c (01/26/2023 12:39 PM CDT) Hgb A1C 6.2(H) 4.0 - 5.6 % [facility] ([place]) Estimated Average Glucose 131 mg/dL [facility] ([place]) Comment: The ADA recommends reporting an estimated Average Glucose (eAG) with all Hemoglobin A1c results using the equation derived from a study of 507 normal and diabetic adults. ??Minority populations were underrepresented and children were not included. ?? (Diabetes Care 31:4622-1773, 2008). ??The eAG is not equivalent to a fasting glucose. Blood 01/26/2023 12:3 9 PM CDT 01/26/2023 1:57 PM CDT Narrative [facility] ([place]) - 01/26/2023 2:26 PM CDT fasting Christine Herzog MD LAB BLOOD ORDERABLES Final Result Performing Organization Address [facility] Co de Phone Number [facility] ([place]) [address] [facility] [place] [address] * (ABNORMAL) Lipid panel (01/26/2023 12:39 PM CDT) [facility] Signature Cholesterol 136 30 - 199 mg/dL [facility] ([place]) [...] Data was last revised on 2018. Triglycerides 209(H) <=149 mg/dL [facility] ([place]) Comment: Interpretive [...] on 2018. HDL 40 >=40 mg/dL [facility] ([place]) Comment: Interpretive Data [...] was last revised on 2018. LDL, calculated 54 <=129 mg/dL [facility] ([place]) Comment: Interpretive [...] was last revised on 2018. Non-HDL Cholesterol 96 mg/dL [facility] ([place]) Comment: Interpretive Data [...] ratio 3 [facility] ([place]) Blood 01/26/2023 12:3 9 PM CDT 01/26/2023 1:56 PM CDT Narrative [facility] ([place]) - 01/26/2023 2:36 PM CDT fasting us Christine Herzog MD LAB BLOOD ORDERABLES Final Result [facility] ([place]) 1 [facility] Department [place] [address] * (ABNORMAL) CBC with auto differential (01/26/2023 12:39 PM CDT) WBC 7.8 3.8 - 9.9 K/cumm [facility] ([place]) Hgb 14.6 13.0 - 17.5 g/dL [facility] ([place]) Hct 46.1 38.9 - 50.3 % [facility] ([place]) Plt 183 150 - 400 K/cumm [facility] ([place]) MPV 11.5 9.1 - 12.3 fL [facility] ([place]) RBC 5.48 4.30 - 5.80 M/cumm [facility] ([place]) MCV 84.1 81.3 - 96.4 fL [facility] ([place]) MCH 26.6(L) 27.1 - 33.3 pg [facility] ([place]) MCHC 31.7(L) 32.3 - 35.7 g/dL [facility] ([place]) RDW CV 14.6 11.1 - 14.9 % [facility] ([place]) RDW SD 44.0 35.7 - 48.1 fL [facility] ([place]) NRBC abs 0.00 0.00 - 0.01 K/cumm [facility] ([place]) Blood 01/26/2023 12:3 9 PM CDT 01/26/2023 1:56 PM CDT Narrative [facility] ([place]) - 01/26/2023 2:01 PM CDT fasting us Christine Herzog MD LAB BLOOD ORDERABLES Final Result [facility] ([place]) 1 [facility] Department [place] [address] * (ABNORMAL) Comprehensive metabolic panel (01/26/2023 12:39 PM CDT) Sodium 141 135 - 145 mmol/L [facility] ([place]) Potassium, pl 5.0(H) 3.3 - 4.9 mmol/L [facility] ([place]) Chloride 107 97 - 110 mmol/L [facility] ([place]) CO2 24 22 - 32 mmol/L [facility] ([place]) Anion gap 11 2 - 15 mmol/L [facility] ([place]) BUN 33(H) 6 - 25 mg/dL [facility] ([place]) Creatinine 1.40(H) 0.80 - 1.30 mg/dL [facility] ([place]) Glucose 95 70 - 199 mg/dL [facility] ([place]) [...] classification and Diagnosis of Diabetes Diabetes Care 202; 46: S19-S40. Current interpretive data was last revised 2022. Calcium 9.2 8.5 - 10.3 mg/dL [facility] ([place]) Bilirubin, total 0.4 0.1 - 1.2 mg/dL [facility] ([place]) Protein, pl 7.0 6.5 - 8.5 g/dL [facility] ([place]) Albumin 4.2 3.5 - 5.0 g/dL [facility] ([place]) Alk phos 95 40 - 130 Units/L [facility] ([place]) ALT 20 7 - 55 Units/L [facility] ([place]) AST 17 10 - 50 Units/L [facility] ([place]) Comment:Slightly Hemolyzed S pecimen Blood 01/26/2023 12:3 9 PM CDT 01/26/2023 1:56 PM CDT Narrative [facility] ([place]) - 01/26/2023 2:36 PM CDT fasting Christine Herzog MD LAB BLOOD ORDERABLES Final Result [facility] ([place]) 1 [facility] Department [place] [address] * PSA screen (01/26/2023 12:39 PM CDT) PSA-Total 2.31 <=6.20 ng/mL [facility] ([place]) Comment: Interpretive Data ?AGE ? SEX [...] 9 PM CDT 01/26/2023 1:56 PM CDT Christine Herzog MD LAB BLOOD ORDERABLES Final Result [facility] ([place]) 1 [place] [address] * (ABNORMAL) Albumin Creatinine Ratio, Urine (01/26/2023 12:38 PM CDT) Albumin Ur 268.5 mg/L [facility] ([place]) Comment: Interpretive Data No reference range established. Current interpretive data was last revised 2018. Testing performed by: [facility], [address] [place] [address]., [id number] Creatinine Ur 157.6 mg/dL [facility] ([place]) Comment: Interpretive Data No reference range established. Current interpretive data was last revised 2018. Testing performed by: [facility], [address] [place] [address]., [id number] Albumin Creatinine Ratio, Ur 170(H) 1 - 29 mg/g [facility] ([place]) Comment:Testing performed by : [facility], [address] [place] [address]., [id number] Urine 01/26/2023 12:3 8 PM CDT 01/27/2023 9:10 AM CDT Narrative [facility] ([place]) - 01/27/2023 12:57 PM CDT fasting Christine Herzog MD LAB URINE ORDERABLES Final Result Performing Organization Address City/[facility]/ZIP Co de Phone Number [facility] ([place]) [address] [facility] [place] [address] documented in this encounter Visit Diagnoses Diagnosis Benign prostatic hyperplasia with lower urinary tract symptoms, symptom details unspecified Healthcare maintenance Type 2 diabetes mellitus without complication, unspecified whether extermination inspector insulin use (HCC) documented in this encounter Care Teams Dust Collector Treater Relationship Specialty Start Date End Date Christine Herzog MD [address] [place] [address] [address] [place] [address] PCP - General Internal Medicine 12/02/21 Trey Pinedo MD [address] [place] [address] [address] [place] [address] Consulting Physician Neurology 05/09/19 Albert Craft MD [address] [facility] [address] [place] [address] Consulting Physician Gastroenterology 03/11/22 Chintan Figueroa MD [address] [facility] [address] [place] [address] Consulting Physician Hematology and Oncology 03/11/22 Jameel Bloom DPM [address] [place] [address] Consulting Physician Orthotics 03/11/22 Gadiel Genao MD [address] [place] [address] Surgeon Vascular Surgery 03/11/22 documented as of this encounter
--- OUTSIDE RECORDS SUMMARY | 2024-06-18 18:05 | XMS_ITS | Encounter Summary ---
Author Organization [facility] Address [address] [place] [address] Care Team Providers Care Manager Transfusion Name Role Phone Trey Pinedo MD Unavailable [phone] Christine Herzog MD Primary Care Provide r Albert Craft MD Unavailable [phone] Chintan Figueroa MD Unavailable [phone] Jameel Bloom DPM Unavailable [phone] Gadiel Genao MD Unavailable [phone] Encounter Details Date Type Department Care Team (Late st Contact Info) Description 11/16/2022 Orders Only [facility] Primary Care at [address] [place] [address] Christine Herzog MD [address] [place] [address] [address] [place] [address] Benign prostatic hyperplasia with lower urinary tract symptoms, symptom details unspecified (Primary Dx) Social History Tobacco Use Types [...] any clubs o r organizations such as worship groups, unions, fraternal or athletic groups, or [...] on file 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 Author GULSHAN General Goal - Patient schedules and keeps appointments with all recommended providers ACO Care Management On track(2022 11:14 AM WIRE HARNESS ASSEMBLER) No Sepideh Hi RN Note: Problem: Potential [...] documented as of this encounter Results * PSA screen (01/26/2023 12:39 PM CDT) [...] LAB BLOOD ORDERABLES Final Result [facility] ([place]) 1 [facility] Department [place] [address] documented in this encounter Visit Diagnoses Diagnosis Benign prostatic hyperplasia with lower urinary tract symptoms, symptom details unspecified- Primary documented in this encounter Care Teams Manager Transfusion Relationship Specialty Start Date End Date Christine Herzog MD [address] [facility] [place] [address] PCP - General Internal Medicine 12/02/21 Trey Pinedo MD [address] [facility] [address] [place] [address] Consulting Physician Neurology 05/09/19 Albert Craft MD [address] [facility] [place] [address] Consulting Physician Gastroenterology 03/11/22 Chintan Figueroa MD [address] [place] [address] Consulting Physician Hematology and Oncology 03/11/22 Jameel Bloom DPM [address] [place] [address] Consulting Physician Orthotics 03/11/22 Gadiel Genao MD [address] [place] [address] Surgeon Vascular Surgery 03/11/22 documented as of this encounter
--- OUTSIDE RECORDS SUMMARY | 2024-06-18 18:05 | XMS_ITS | Encounter Summary ---
Author Organization [facility] Address [address] [address] Care Team Providers Care Nozzle Worker Name Role Phone Trey Pinedo MD Unavailable [phone] Christine Herzog MD Primary Care Provide r Albert Craft MD Unavailable [phone] Chintan Figueroa MD Unavailable [phone] Jameel Bloom DPM Unavailable [phone] Gadiel Genao MD Unavailable [phone] Reason for Visit * Reason Onset Date Comments Med Refill 12/28/2022 Encounter Details Date Type Department Care Team (Late st Contact Info) Description 12/28/[address] 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 Gender Identity Not on file Sexual Orientation Straight 01/23/2021 10 :16 PM CDT documented as of this encounter Ordered Prescriptions Prescription Sig Dispense Quantity Refills Last Filled Start Date End Date magnesium oxide (MAG-OX) 400 mg (241.3 mg elemental magnesium) tabletIndications: hypomagnesemia Take 1 tablet (400 mg total) by mouth 2 (two) times a day 180 tablet 1 01/05/2023 07/17/2023 magnesium oxide (MAG-OX) 400 mg (241.3 mg elemental magnesium) tabletIndications: hypomagnesemia Take 1 tablet (400 mg total) by mouth 2 (two) times a day 180 tablet 1 12/28/2022 01/05/2023 documented in this encounter Miscellaneous Notes * Addendum Note - Liudmila Portillo LPN - 01/05/2023 11:05 AM CDTAddended by: LIUDMILA PORTILLO on: 01/05/2023 11:05 AM Modules accepted: Orders * Telephone Encounter - Liudmila Portillo LPN - 01/05/2023 11:04 AM CDT Refill for Magnesium sent to [facility]. * Telephone Encounter - Tiffanie Landaverde - 01/05/2023 10:42 AM CDT Pt son called and said that [facility] wont refill the magnesium, so can you please send a 90 day supply to [facility] in [place], [place] * Telephone Encounter - Liudmila Portillo LPN - 12/28/2022 2:27 PM CDT Refill sent to [facility]. * Telephone Encounter - Tiffanie aLndaverde - 12/28/2022 1:58 PM CDT Pt needs a refill on magnesium oxide 400 mg,BID, 90 day supply. Send to [facility] documented in this encounter Plan of Treatment Not on file documented as of this encounter Goals Goal Patient Goal Type Associated Problems Recent Progress Patient-Stated? Author GULSHAN General Goal - Patient schedules and keeps appointments with all recommended providers ACO Care Management On track(2022 11:14 AM CONFECTIONERY MAKER) Sepideh Guo RN Note: Problem: Potential for [...] Discontinue Reason Start Date End Da te magnesium oxide (MAG-OX) 400 mg (241.3 mg elemental magnesium) tabletIndications:hypoma gnesemia Take 1 tablet (400 mg total) by mouth 2 (two) times a day Reorder 10/10/2022 12/28/2022 magnesium oxide (MAG-OX) 400 mg (241.3 mg elemental magnesium) tabletIndications:hypoma gnesemia Take 1 tablet (400 mg total) by mouth 2 (two) times a day Reorder 12/28/2022 01/05/2023 documented as of this encounter Care Teams Nozzle Worker Relationship Specialty Start Date End Date Christine Herzog MD [address] [facility] [address] [place] [address] PCP - General Internal Medicine 12/02/21 Trey Pinedo MD [address] [place] [address] [address] [facility] [place] [address] Consulting Physician Neurology 05/09/19 Albert Craft MD [address] [facility] [address] [place] [address] Consulting Physician Gastroenterology 03/11/22 Chintan Figueroa MD [address] [facility] [address] [place] [address] Consulting Physician Hematology and Oncology 03/11/22 Jameel Bloom DPM [address] [place] [address] Consulting Physician Orthotics 03/11/22 Gadiel Genao MD [address] [place] [address] Surgeon Vascular Surgery 03/11/22 documented as of this encounter
--- OUTSIDE RECORDS SUMMARY | 2024-06-18 18:05 | XMS_ITS | Encounter Summary ---
Author Organization [facility] Address [address] [place] [address] Care Team Providers Care Purification Director Name Role Phone Trey Pinedo MD Unavailable [phone] Christine Herzog MD Primary Care Provide r Albert Craft MD Unavailable [phone] Chintan Figueroa MD Unavailable [phone] Jameel Bloom DPM Unavailable [phone] Gadiel Genao MD Unavailable [phone] Encounter Details Date Type Department Care Team (Late st Contact Info) Description 12/29/[address] [facility] Primary Care at [place] [address] [facility] [address] [place] [address] Christine Herzog MD [address] [place] [address] [address] [place] [address] Social History Tobacco Use Types [...] often do you attend chur ch or gnosticist services? 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 HIPAA verified JM 12/29/22 documented in this encounter Plan of Treatment Not on file documented as of this encounter Goals Goal Patient Goal Type Associated Problems Recent Progress Patient-Stated? Author GULSHAN General Goal - Patient schedules and keeps appointments with all recommended providers ACO Care Management On track(2022 11:14 AM BEVERAGE INSPECTION MACHINE TENDER) No Sepideh Hi RN Note: Problem: Potential [...] on filedocumented in this encounter Care Teams Purification Director Relationship Specialty Start Date End Date Christine Herzog MD [address] [facility] [address] [place] [address] PCP - General Internal Medicine 12/02/21 Trey Pinedo MD [address] [facility] [address] [place] [address] Consulting Physician Neurology 05/09/19 Albert Craft MD [address] [facility] [address] [place] [address] Consulting Physician Gastroenterology 03/11/22 Chintan Figueroa MD [address] [facility] [address] [place] [address] Consulting Physician Hematology and Oncology 03/11/22 Jameel Bloom DPM [address] [place] [address] Consulting Physician Orthotics 03/11/22 Gadiel Genao MD [address] [place] [address] Surgeon Vascular Surgery 03/11/22 documented as of this encounter
--- OUTSIDE RECORDS SUMMARY | 2024-06-18 18:05 | XMS_ITS | Encounter Summary ---
Author Organization [facility] Medical Group Address [address] [facility] [place] [address] Care Team Providers Care Mail Clerks Supervisor Name Role Phone Trey Pinedo MD Unavailable [phone] Christine Herzog MD Primary Care Provide r Albert Craft MD Unavailable [phone] Chintan Figueroa MD Unavailable [phone] Jameel Bloom DPM Unavailable [phone] Gadiel Genao MD Unavailable Reason for Visit * Reason Comments Successful Phone Call Encounter Details Date Type Department Care Team (Late st Contact Info) Description 09/21/2022 [facility] ED Outreach [facility] Accountable Care Organization [address] [place] [address] Lexii Arnold [place] [address] [facility] [address] [place] [address] Social History Tobacco Use Types Packs/Day Years [...] often do you attend chur ch or baptist services? Never 08/12/2022 Do you belong to any clubs o r organizations such as yarsani groups, unions, fraternal or athletic groups, or [...] slept in a longterm (including now)? 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 on 09/16 for fall, skin tear of hand . Status of Reason for ED Visit - Better Status Details: - Spoke to son Ian, stated pt is doing oaky. did notice when changing bandage thismorning there is a bump on wound that may look infected. CC was able to get pt an apt for tomorrow,09/22 to see PIPE CREW FOREMAN at office. Pt seen Neuro on 09/19 for cognitive decline. Discharge Instructions Reviewed - Yes Details: - Medication Reconciliation Completed - Yes Details: - ED Follow-Up Appointment - 09/22/2022 Details: - Patient educated about same day sick appts at PCP office and when to utilize office vs urgent care vs ED. Pt verbalized understanding of information presented. No additional needs identified at this time. Provided my contact information for future needs. documented in this encounter Plan of Treatment Not on file documented as of this encounter Goals Goal Patient Goal Type Associated Problems Recent Progress Patient-Stated? Author GULSHAN General Goal - Patient schedules and keeps appointments with all recommended providers ACO Care Management On track(2022 11:14 AM TRAIN GATEMAN) Sepideh Guo, RN Note: Problem: Potential for [...] documented as of this encounter Care Teams Mail Clerks Supervisor Relationship Specialty Start Date End Date Christine Herzog MD [address] [facility] [address] [place] [address] PCP - General Internal Medicine 12/02/21 Trey Pinedo MD [address] [facility] [address] [place] [address] Consulting Physician Neurology 05/09/19 Albert Craft MD [address] [facility] [address] [place] [address] Consulting Physician Gastroenterology 03/11/22 Chintan Figueroa MD [address] [facility] [address] [place] [address] Consulting Physician Hematology and Oncology 03/11/22 Jameel Bloom DPM [address] [place] [address] Consulting Physician Orthotics 03/11/22 Gadiel Genao MD [address] [place] [address] Surgeon Vascular Surgery 03/11/22 documented as of this encounter
--- OUTSIDE RECORDS SUMMARY | 2024-06-18 18:05 | XMS_ITS | Encounter Summary ---
Author Organization [facility] Healthcare Address [address] [place] [address] Care Team Providers Care Cotton Jammer Name Role Phone Trey Pinedo MD Unavailable [phone] Christine Herzog MD Primary Care Provide r Albert Craft MD Unavailable [phone] Chintan Figueroa MD Unavailable [phone] Jameel Bloom DPM Unavailable [phone] Gadiel Genao MD Unavailable [phone] Encounter Details Date Type Department Care Team (Late st Contact Info) Description 11/18/2022 1:00 PM CDT Lab [facility] [address] [facility] [address] [place] [address] Polycythemia Social History Tobacco Use Types Packs/Day [...] often do you attend chur ch or worship services? 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 Author GULSHAN General Goal - Patient schedules and keeps appointments with all recommended providers ACO Care Management On track(2022 11:14 AM BEAM BUILDER HELPER) No Sepideh Hi RN Note: Problem: Potential [...] Date/Time Associated Diagnosis Comments DIFFERENTIAL AUTO Routine 11/18/2022 1:0 0 PM CDT Polycythemia CBC WITH AUTO DIFFERENTIAL Routine 11/18/2022 1:00 PM CDT Polycythemia documented in this encounter Results * Differential, auto (11/18/2022 1:00 PM CDT) Neutrophil abs 4.6 1.7 - 6.5 K/cumm [facility] ([facility]) Imm gran abs 0.0 0.0 - 0.1 K/cumm [facility] ([facility]) Lymphocyte abs 1.3 0.8 - 3.3 K/cumm [facility] ([facility]) Monocyte abs 0.7 0.2 - 0.8 K/cumm [facility] ([facility]) Eosinophil abs 0.3 0.0 - 0.5 K/cumm [facility] ([facility]) Basophil abs 0.1 0.0 - 0.1 K/cumm [facility] ([facility]) Neutrophil pct 66.0 % [facility] ([facility]) Comment: Interpretive [...] was last revised on 2022. Lymphocyte pct 18.1 % [facility] ([facility]) Comment: Interpretive Data Percent cell count reference ranges are not reported, since discordance with absolute values may lead to misinterpretation of CBC data. Current Interpretive Data was last revised on 2022. Monocyte pct 10.2 % [facility] ([facility]) Comment: Interpretive Data Percent cell count reference ranges are not reported, since discordance with absolute values may lead to misinterpretation of CBC data. Current Interpretive Data was last revised on 2022. Eosinophil pct 4.0 % [facility] ([facility]) Comment: Interpretive Data Percent cell count reference ranges are not reported, since discordance with absolute values may lead to misinterpretation of CBC data. Current Interpretive Data was last revised on 2022. Basophil pct 1.6 % [facility] ([facility]) Comment: Interpretive Data Percent cell count reference ranges are not reported, since discordance with absolute values may lead to misinterpretation of CBC data. Current Interpretive Data was last revised on 2022. Blood 11/18/2022 1:00 PM CDT 11/18/2022 1:04 PM CDT us Monika D. Biciocchi ROPE SILICA MACHINE OPERATOR LAB BLOOD ORDERABLES Final Result [facility] ([facility]) [address] [facility] [employer] [place] [address] * (ABNORMAL) CBC with auto differential (11/18/2022 1:00 PM CDT) WBC 7.0 3.8 - 9.9 K/cumm [facility] ([facility]) Hgb 14.8 13.0 - 17.5 g/dL [facility] ([facility]) Hct 46.6 38.9 - 50.3 % [facility] ([facility]) Plt 195 150 - 400 K/cumm [facility] ([facility]) MPV 10.4 9.1 - 12.3 fL [facility] ([facility]) RBC 5.51 4.30 - 5.80 M/cumm [facility] ([facility]) MCV 84.6 81.3 - 96.4 fL [facility] ([facility]) MCH 26.9(L) 27.1 - 33.3 pg [facility] ([facility]) MCHC 31.8(L) 32.3 - 35.7 g/dL [facility] ([facility]) RDW CV 15.4(H) 11.1 - 14.9 % [facility] ([facility]) RDW SD 47.9 35.7 - 48.1 fL [facility] ([facility]) NRBC abs Not Measured 0.00 - 0.01 K/cumm [facility] ([facility]) Blood 11/18/2022 1:00 PM CDT 11/18/2022 1:04 PM CDT Narrative [facility] ([facility]) - 11/18/2022 1:08 PM CDT Start in June us Monika Castellano ROPE SILICA MACHINE OPERATOR LAB BLOOD ORDERABLES Final Result [facility] ([facility]) 1 [facility] Department [place] [address] documented in this encounter Visit Diagnoses Diagnosis Polycythemia Polycythemia, secondary documented in this encounter Care Teams Cotton Jammer Relationship Specialty Start Date End Date Christine Herzog MD [address] [facility] [address] [place] [address] PCP - General Internal Medicine 12/02/21 Trey Pinedo MD [address] [facility] [address] [place] [address] Consulting Physician Neurology 05/09/19 Albert Craft MD [address] [facility] [address] [place] [address] Consulting Physician Gastroenterology 03/11/22 Chintan Figueroa MD [address] [facility] [address] [place] [address] Consulting Physician Hematology and Oncology 03/11/22 Jameel Bloom DPM [address] [place] [address] Consulting Physician Orthotics 03/11/22 Gadiel Genao MD [address] [place] [address] Surgeon Vascular Surgery 03/11/22 documented as of this encounter
--- OUTSIDE RECORDS SUMMARY | 2024-06-18 18:05 | XMS_ITS | Encounter Summary ---
Author Organization [facility] Address [address] [place] [address] Phone Care Team Providers Care Researcher Name Role Phone Trey Pinedo MD Unavailable [phone] Christine Herzog MD Primary Care Provide r Albert Craft MD Unavailable [phone] Chintan Figueroa MD Unavailable [phone] Jameel Bloom DPM Unavailable [phone] Gadiel Genao MD Unavailable [phone] Encounter Details Date Type Department Care Team (Late st Contact Info) Description 11/18/2022 Orders Only [facility] Oncology [address] [place] [address] [address] [place] [id number] Areli Hidalgo, SUE Polycythemia (Primary Dx) Social History Tobacco Use [...] any clubs o r organizations such as adventism groups, unions, fraternal or athletic groups, or [...] on file 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 Author GULSHAN General Goal - Patient schedules and keeps appointments with all recommended providers ACO Care Management On track(2022 11:14 AM LAUNCH MANAGER) No Sepideh Hi, SUE Note: Problem: Potential [...] Ordered Date ONCBCN LAB APPOINTMENT 1 05/22/2023 ONCBCN THERAPEUTIC PHLEBOTOM Y APPOINTMENT REQUEST 1 05/22/2023 documented in this encounter Care Teams Researcher Relationship Specialty Start Date End Date Christine Herzog MD [address] [facility] [address] [place] [address] PCP - General Internal Medicine 12/02/21 Trey Pinedo MD [address] [place] [address] [address] [place] [address] Consulting Physician Neurology 05/09/19 Albert Craft MD [address] [facility] [address] [place] [address] Consulting Physician Gastroenterology 03/11/22 Chintan Figueroa MD [address] [facility] [address] [place] [address] Consulting Physician Hematology and Oncology 03/11/22 Jameel Bloom DPM [address] [place] [address] Consulting Physician Orthotics 03/11/22 Gadiel Genao MD [address] [place] [address] Surgeon Vascular Surgery 03/11/22 documented as of this encounter
--- OUTSIDE RECORDS SUMMARY | 2024-06-18 18:05 | XMS_ITS | Encounter Summary ---
Author Organization [facility] Healthcare Address [address] [place] [address] Care Team Providers Care Buyers' Agent Name Role Phone Trey Pinedo MD Unavailable [phone] Christine Herzog MD Primary Care Provide r Albert Craft MD Unavailable [phone] Chintan Figueroa MD Unavailable [phone] Jameel Bloom DPM Unavailable [phone] Gadiel Genao MD Unavailable [phone] Reason for Visit * Diagnostic Imaging (Routine) - Closed Specialty Diagnoses / Procedures Referred By Contac t Referred To Contact Diagnoses Paroxysmal atrial fibrillation (CMS/HCC) (HCC) Bradycardia Pulmonary hypertension (HCC) Biatrial enlargement Nonrheumatic tricuspid valve regurgitation Mixed hyperlipidemia Essential hypertension Coronary artery disease involving [place] coronary artery of [place] heart without angina pectoris Procedures NM MPI SPECT (Rest and/or Stress) Multiple Studies Bijal Galindo MD Phone: tel: fax: [address] [address] Referral ID Status Reason Start Date Expiration Date Visits Re quested Visits Authorized [id number] Closed 09/06/2022 10/06/2023 1 1 Encounter Details Date Type Department Care Team (Latest Contact Info) Description 11/03/2022 11:52 AM CDT - 11/03/2022 11:59 PM CDT Hospital Encounter [facility] Nuclear Medicine [facility] [place] [address] Bijal Galindo MD [address] [place] [phone] Paroxysmal atrial fibrillation (CMS/HCC) (HCC); Bradycardia; Pulmonary hypertension (HCC); Biatrial enlargement; Nonrheumatic tricuspid valve regurgitation; Mixed hyperlipidemia; Essential hypertension; Coronary artery disease involving [place] coronary artery of [place] heart without angina pectoris Discharge Disposition: Discharge [...] on file 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 Gender Identity Not on file Sexual Orientation Straight 01/23/2021 10 :16 PM CDT documented as of this encounter Last Filed Vital Signs Vital Sign Reading Time Taken Comments Blood Pressure 202/86 11/03/2022 1:21 PM CDT Pulse 52 11/03/2022 1:21 PM CDT Temperature - - Respiratory Rate - - Oxygen Saturation 97% 11/03/2022 1:21 PM CDT Inhaled Oxygen Concentration - - Weight - - Height - - Body Mass Index - - documented in this encounter Medications at Time [...] ACO Care Management On track(2022 11:14 AM STUDENT ADMISSIONS CLERK) Sepideh Guo RN Note: Problem: Potential for [...] Name Priority Date/Time Associated Diagnosis Comments NM MPI SPECT (REST AND/OR STRESS) MULTIPLE STUDIES Schedule Routine, Read Routine (OP Routine) 11/03/2022 2:30 PM CDT Paroxysmal atrial fibrillation (CMS/HCC) (HCC) Bradycardia Pulmonary hypertension (HCC) Biatrial enlargement Nonrheumatic tricuspid valve regurgitation Mixed hyperlipidemia Essential hypertension Coronary artery disease involving [place] coronary artery of [place] heart without angina pectoris STRESS TEST FOR DUAL READ Schedule Routine, Read Routine (OP Routine) 11/03/2022 2:30 PM CDT Paroxysmal atrial fibrillation (CMS/HCC) (HCC) Bradycardia Pulmonary hypertension (HCC) Biatrial enlargement Nonrheumatic tricuspid valve regurgitation Mixed hyperlipidemia Essential hypertension Coronary artery disease involving [place] coronary artery of [place] heart without angina pectoris documented in this encounter Results * Stress Test for Myocardial Perfusion (11/03/2022 2:30 PM CDT) Anatomical Region Laterality Modality Nuclear Medicine 11/03/2022 Narrative 11/07/2022 5:11 PM CDT [employer] Job ID: [id number] [employer] Document ID: [id number] Dictated date/time: [id number] ELECTROCARDIOGRAPHIC PORTION OF Site IntelligenceISCAN MYOVIEW STRESS TEST INDICATIONS Mr. Zuniga is a 77-year-old gentleman who was recently hospitalized and found to be bradycardic with heart rates in the 40s in atrial fibrillation. ??His beta johanne dose was decreased. ??He has a known history of hypertension as well and had a mildly elevated high sensitivity troponin T, but no significant delta. ??So, this is being done to assess for myocardial ischemia. MODALITY OF STRESS 0.4 mg of regadenoson was given via bolus followed by the flush and a Myoview tracer was given. The patient denied any side effects from the regadenoson administration. VITAL SIGNS Baseline blood pressure was 202/86 mmHg, although in my office when I saw him on 09/06/2022, it was normal at 130/70 mmHg. ??Baseline heart rate was 52 beats per minute. ??O2 saturation was 97%. ??The blood pressure after the regadenoson was given was 141/79 mmHg. ??Baseline heart rate 52 beats per minute. ??After regadenoson was given, it was 66 beats per minute in atrial fibrillation. ??Baseline O2 saturation was 97%. ??After regadenoson was given, O2 saturations ranged between 96% and 99%. EKG Baseline reveals atrial fibrillation with slow ventricular response with PVCs and rare burst of ??apparently conducted beats. ??He had poor R-wave progression. ??He had an intraventricular conduction delay. ??He had a slow ventricular response with a rate of 43 beats per minute. STRESS ELECTROCARDIOGRAM His EKG showed increased heart rate with the regadenoson being given. ??He had no significant ST changes which meet criteria for ischemia. CONCLUSIONS 1. No significant Lexiscan induced ischemic EKG changes. 2. The study was well tolerated. 3. Baseline atrial fibrillation with slow ventricular response. 4. Elevated blood pressure was 202/86 mmHg, but was normal in my office when he saw me last. 5. Myoview images pending in a separate report. ?? In light of his elevated blood pressure, I have asked him to increase his amlodipine from 2.5 up to 5 mg daily in light of his bradycardia. ??I have asked him to discontinue his Toprol-XL 25 mg daily. ??He will follow up in the office to re-evaluate the heart rate blood pressure with the above changes. Job ID/Internal Job ID: ??[id number] Bijal Galindo MD CV STRESS PROCEDURES Final R esult documented in this encounter Visit Diagnoses Diagnosis Paroxysmal atrial fibrillation (CMS/HCC) (HCC) Atrial fibrillation Bradycardia Other specified cardiac dysrhythmias Pulmonary hypertension (HCC) 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 Mixed hyperlipidemia Essential hypertension Unspecified essential hypertension Coronary artery disease involving [place] coronary artery of [place] heart without angina pectoris Paroxysmal atrial fibrillation (CMS/HCC) (HCC) Atrial fibrillation Bradycardia Other specified cardiac dysrhythmias Pulmonary hypertension (HCC) 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 Mixed hyperlipidemia Essential hypertension Unspecified essential hypertension Coronary artery disease involving [place] coronary artery of [place] heart without angina pectoris documented in this encounter Administered Medications Inactive Administered Medications - up to 3 most recent administrations Medication Order MAR Action Action Date Dose Rate Site regadenoson (LEXISCAN) 0.4 mg/5 mL injection 0.4 mg 0.4 mg, intravenous, Once, On Hyacinth 11/03/22 at 1330, For 1 dose, Intra-Procedure (CV), Administer IV push over 10 seconds., Indications: Myocardial Perfusion Imaging AdjunctIndications:Myocardial Perfusion Imaging Adjunct Given 11/03/2022 1:36 PM CDT 0.4 mg documented in this encounter Orders Medications Ordered That Reg ht Not Have Been Administered Count Last Ordered Date First Ordered Date regadenoson (LEXISCAN) 0.4 m g/5 mL injection 0.4 mg 1 11/03/2022 documented in this encounter Additional Health Concerns Infection Onset Date Last Indicated Resolved Time COVID: Recovered Comment:Added based on recent COVID infection. 08/16/2022 08/17/2022 11/14/2022 3:05 AM C DT documented as of this encounter Care Teams Buyers' Agent Relationship Specialty Start Date End Date Christine Herzog MD [address] [facility] [address] [place] [address] PCP - General Internal Medicine 12/02/21 Trey Pinedo MD [address] [facility] [address] [place] [address] Consulting Physician Neurology 05/09/19 Albert Craft MD [address] [facility] [place] [address] Consulting Physician Gastroenterology 03/11/22 Chintan Figueroa MD [address] [place] [address] Consulting Physician Hematology and Oncology 03/11/22 Jameel Bloom DPM [address] [place] [address] Consulting Physician Orthotics 03/11/22 Gadiel Genao MD [address] [place] [address] Surgeon Vascular Surgery 03/11/22 documented as of this encounter
--- OUTSIDE RECORDS SUMMARY | 2024-06-18 18:05 | XMS_ITS | Encounter Summary ---
Author Organization [facility] Healthcare Address [address] [place] [address] Care Team Providers Care Middleware Architect Name Role Phone Trey Pinedo MD Unavailable [phone] Christine Herzog MD Primary Care Provide r Albert Craft MD Unavailable [phone] Chintan Figueroa MD Unavailable [phone] Jameel Bloom DPM Unavailable [phone] Gadiel Genao MD Unavailable [phone] Encounter Details Date Type Department Care Team (Late st Contact Info) Description 09/22/2022 2:30 PM CDT Infusion [facility] [address] [facility] [address] [place] [address] Polycythemia Social History Tobacco Use Types Packs/Day [...] often do you attend chur ch or adventism services? Never 08/12/2022 Do you belong to any clubs o r organizations such as sabianist groups, unions, fraternal or athletic groups, or [...] in a penitentiary (including now)? No 08/12/2022 Personal Safety Answer Date Recorded Have you ever been in or are you currently in a harmful physical or emotional relationship or is someone making you feel afraid or unsafe? 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 Author GULSHAN General Goal - Patient schedules and keeps appointments with all recommended providers ACO Care Management On track(2022 11:14 AM MOLDING LINE OPERATOR) Sepideh Guo RN Note: Problem: Potential [...] ONCBCN THERAPEUTIC PHLEBOTOM Y APPOINTMENT REQUEST 1 09/22/2022 documented in this encounter Additional Health Concerns Infection Onset Date Last Indicated Resolved Time COVID: Recovered Comment:Added based on recent COVID infection. 08/16/2022 08/17/2022 11/14/2022 3:05 AM C DT documented as of this encounter Care Teams Middleware Architect Relationship Specialty Start Date End Date Christine Herzog MD [address] [place] [address] [address] [place] [address] PCP - General Internal Medicine 12/02/21 Trey Pinedo MD [address] [place] [address] [address] [place] [address] Consulting Physician Neurology 05/09/19 Albert Craft MD [address] [facility] [address] [place] [address] Consulting Physician Gastroenterology 03/11/22 Chintan Figueroa MD [address] [facility] [address] [place] [address] Consulting Physician Hematology and Oncology 03/11/22 Jameel Bloom DPM [address] [place] [address] Consulting Physician Orthotics 03/11/22 Gadiel Genao MD [address] [place] [address] Surgeon Vascular Surgery 03/11/22 documented as of this encounter
--- OUTSIDE RECORDS SUMMARY | 2024-06-18 18:05 | XMS_ITS | Encounter Summary ---
Author Organization [facility] Healthcare Address [address] [place] [address] Care Team Providers Care Gage Designer Name Role Phone Trey Pinedo MD Unavailable [phone] Christine Herzog MD Primary Care Provide r Albert Craft MD Unavailable [phone] Chintan Figueroa MD Unavailable [phone] Jameel Bloom DPM Unavailable [phone] Gadiel Genao MD Unavailable [phone] Reason for Visit * Diagnostic Imaging (Routine) - Closed Specialty Diagnoses / Procedures Referred By Contac t Referred To Contact Diagnoses Paroxysmal atrial fibrillation (CMS/HCC) (HCC) Bradycardia Pulmonary hypertension (HCC) Biatrial enlargement Nonrheumatic tricuspid valve regurgitation Mixed hyperlipidemia Essential hypertension Coronary artery disease involving [place]giak coronary artery of [place] heart without angina pectoris Procedures NM MPI SPECT (Rest and/or Stress) Multiple Studies Bijal Galindo MD Phone: tel: fax: [address] [phone] Referral ID Status Reason Start Date Expiration Date Visits Re quested Visits Authorized [id number] Closed 09/06/2022 10/06/2023 1 1 Encounter Details Date Type Department Care Team (Latest Contact Info) Description 11/03/2022 11:51 AM CDT - 11/03/2022 11:59 PM CDT Hospital Encounter [facility] Nuclear Medicine [address] [place] [id number] Discharge Disposition: Discharge to home or self [...] often do you attend chur ch or voodoo services? Patient declined 09/28/2022 Do you belong to any clubs o r organizations such as denominational groups, unions, fraternal or athletic groups, or [...] place to sleep or slept in a custodial (including now)? No 09/28/2022 Personal Safety Answer Date Recorded Have you ever been in or are you currently in a harmful physical or emotional relationship or is someone making you feel afraid or unsafe? 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 Gender Identity Not on file Sexual Orientation [...] ACO Care Management On track(2022 11:14 AM PACK TRAIN DRIVER) Sepideh Guo, RN Note: Problem: Potential for [...] hyperlipidemia Essential hypertension Coronary artery disease involving [place]giak coronary artery of [place]gi[place] heart without angina pectoris NM MPI SPECT (REST AND/OR STRESS) MULTIPLE STUDIES Schedule Routine, Read Routine (OP Routine) 11/03/2022 2:30 PM CDT Paroxysmal atrial fibrillation (CMS/HCC) (HCC) Bradycardia Pulmonary hypertension (HCC) Biatrial enlargement Nonrheumatic tricuspid valve regurgitation Mixed hyperlipidemia Essential hypertension Coronary artery disease involving togiak coronary artery of [place] heart without angina pectoris documented in this encounter Visit Diagnoses Not on filedocumented in this encounter Administered Medications Inactive Administered Medications - up to 3 most recent administrations Medication Order MAR Action Action Date Dose Rate Site tc-99m tetrofosmin (MYOVIEW) injection 33 millicurie 33 millicurie, intravenous, Once in imaging, radiopharmaceutical, Starting on Hyacinth 11/03/22 at 1429, For 1 dose, Indications: Diagnostic RadiographyIndications:Diag nostic Radiography Given 11/03/2022 2:29 PM CDT 33 millicuries documented in this encounter Orders Medications Ordered That Reg ht Not Have Been Administered Count Last Ordered Date First Ordered Date tc-99m tetrofosmin (MYOVIEW) injection 33 millicurie 1 11/03/2022 documented in this encounter Additional Health Concerns Infection Onset Date Last Indicated Resolved Time COVID: Recovered Comment:Added based on recent COVID infection. 08/16/2022 08/17/2022 11/14/2022 3:05 AM C DT documented as of this encounter Care Teams Gage Designer Relationship Specialty Start Date End Date Christine Herzog MD [address] [facility] [address] [place] [address] PCP - General Internal Medicine 12/02/21 Trey Pinedo MD [address] [facility] [address] [place] [address] Consulting Physician Neurology 05/09/19 Albert Craft MD [address] [place] [address] [address] [place] [address] [address] Consulting Physician Gastroenterology 03/11/22 Chintan Figueroa MD [address] [place] [address] [address] [place] [address] Consulting Physician Hematology and Oncology 03/11/22 Jameel Bloom DPM [address] [place] [address] Consulting Physician Orthotics 03/11/22 Gadiel Genao MD [address] [place] [address] Surgeon Vascular Surgery 03/11/22 documented as of this encounter
--- OUTSIDE RECORDS SUMMARY | 2024-06-18 18:05 | XMS_ITS | Encounter Summary ---
Author Organization [facility] Medical Group Address [address] [facility] [address] [place] [address] Care Team Providers Care Bacteriology Teacher Name Role Phone Trey Pinedo MD Unavailable [phone] Christine Herzog MD Primary Care Provide r Albert Craft MD Unavailable [phone] Chintan Figueroa MD Unavailable [phone] Jameel Bloom DPM Unavailable [phone] Gadiel Genao MD Unavailable [phone] Encounter Details Date Type Department Care Team (Late st Contact Info) Description 11/04/2022 Telephone [facility] Medical [facility] [place] [address] [facility] [address] [place] [address] Christine Herzog MD [address] [place] [address] [address] [place] [address] Social History Tobacco Use Types [...] any clubs o r organizations such as restorationism groups, unions, fraternal or athletic groups, or [...] place to sleep or slept in a fdc (including now)? No 09/28/2022 Personal Safety Answer Date Recorded Have you ever been in or are you currently in a harmful physical or emotional relationship or is someone making you feel afraid or unsafe? Denies 09/25/2022 Sex and Gender Information Value Date Recorded Sex Assigned at Not on file 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 DIGITAL MANAGER Gender Identity Not on file Sexual Orientation Straight 01/23/2021 10 :16 PM CDT documented as of this encounter Miscellaneous Notes * Telephone Encounter - Glen Donis MA - 11/04/2022 10:01 AM CDT Pt son was made aware of A1C being 5.9 * Telephone Encounter - Glen Donis MA - 11/04/2022 10:00 AM CDT ----- Message from Christine Herzog MD sent at 11/03/2022 3:18 PM CDT ----- Can let patient know that his a1c was 5.9 documented in this encounter Plan of Treatment Not on file documented as of this encounter Goals Goal Patient Goal Type Associated Problems Recent Progress Patient-Stated? Author [facility] General Goal - Patient schedules and keeps appointments with all recommended providers ACO Care Management On track(2022 11:14 AM DIGITAL MANAGER) No Sepideh Hi RN Note: Problem: Potential [...] documented as of this encounter Care Teams Bacteriology Teacher Relationship Specialty Start Date End Date Christine Herzog MD [address] [place] [address] [address] [place] [address] PCP - General Internal Medicine 12/02/21 Trey Pinedo MD [address] [place] [address] [address] [place] [address] Consulting Physician Neurology 05/09/19 Albert Craft MD [address] [place] [address] [address] [place] [address] Consulting Physician Gastroenterology 03/11/22 Chintan Figueroa MD [address] [place] [address] [address] [place] [address] Consulting Physician Hematology and Oncology 03/11/22 Jameel Bloom DPM [address] [place] [address] Consulting Physician Orthotics 03/11/22 Gadiel Genao MD [address] [place] [address] Surgeon Vascular Surgery 03/11/22 documented as of this encounter
--- OUTSIDE RECORDS SUMMARY | 2024-06-18 18:05 | XMS_ITS | Encounter Summary ---
Author Organization [facility] Healthcare Address [address] [place] [address] Care Team Providers Care Silica Spray Mixer Name Role Phone Trey Pinedo MD Unavailable [phone] Christine Herzog MD Primary Care Provide r Albert Craft MD Unavailable [phone] Chintan Figueroa MD Unavailable [phone] Jameel Bloom DPM Unavailable [phone] Gadiel Genao MD Unavailable [phone] Encounter Details Date Type Department Care Team (Late st Contact Info) Description 11/03/2022 12:30 PM CDT Lab [facility] [address] [place] [address] Type 2 diabetes mellitus with hyperlipidemia (HCC) [...] place to sleep or slept in a residential (including now)? No 09/28/2022 Personal Safety Answer Date Recorded Have you ever been in or are you currently in a harmful physical or emotional relationship or is someone making you feel afraid or unsafe? Denies 09/25/2022 Sex and Gender Information Value Date Recorded Sex Assigned at Not on file 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 COOK MANAGER Gender Identity Not on file Sexual Orientation Straight 01/23/2021 10 :16 PM CDT documented as of this encounter Plan of Treatment Not on file documented as of this encounter Goals Goal Patient Goal Type Associated Problems Recent Progress Patient-Stated? Author GULSHAN General Goal - Patient schedules and keeps appointments with all recommended providers ACO Care Management On track(2022 11:14 AM COOK MANAGER) No Sepideh Hi RN Note: Problem: [...] Priority Date/Time Associated Diagnosis Comments HEMOGLOBIN A1C Routine 11/03/2022 12:09 PM CDT Type 2 diabetes mellitus with hyperlipidemia (HCC) documented in this encounter Results * (ABNORMAL) Hemoglobin A1c (11/03/2022 12:09 PM CDT) Hgb A1C 5.9(H) 4.0 - 5.6 % [facility] Comment:Testing performed by : [facility], [address] [place] [address], [place]., [address] Estimated Average Glucose 123 mg/dL [facility] Comment: The ADA recommends reporting an estimated Average Glucose (eAG) with all Hemoglobin A1c results using the equation derived from a study of 507 normal and diabetic adults. ??Minority populations were underrepresented and children were not included. ?? (Diabetes Care 31:0994-9645, 2008). ??The eAG is not equivalent to a fasting glucose. Testing performed by: [facility], [address] [place] [address], [place]., [address] Blood 11/03/2022 12:0 9 PM CDT 11/03/2022 12:16 PM CDT Narrative [facility] - 11/03/2022 12:58 PM CDT Non fasting Christine Herzog MD LAB BLOOD ORDERABLES Final Result [facility] [address] [facility] Department [place] [address] documented in this encounter Visit Diagnoses Diagnosis Type 2 diabetes mellitus with hyperlipidemia (HCC) documented in this encounter Additional Health Concerns Infection Onset Date Last Indicated Resolved Time COVID: Recovered Comment:Added based on recent COVID infection. 08/16/2022 08/17/2022 11/14/2022 3:05 AM C DT documented as of this encounter Care Teams Silica Spray Mixer Relationship Specialty Start Date End Date Christine Herzog MD [address] [facility] [place] [address] PCP - General Internal Medicine 12/02/21 Trey Pinedo MD [address] [place] [address] [address] [place] [address] Consulting Physician Neurology 05/09/19 Albert Craft MD [address] [facility] [place] [place] [address] Consulting Physician Gastroenterology 03/11/22 Chintan Figueroa MD [address] [place] [address] [place] [address] Consulting Physician Hematology and Oncology 03/11/22 Jameel Bloom DPM [address] [place] [address] Consulting Physician Orthotics 03/11/22 Gadiel Genao MD [address] [place] [address] Surgeon Vascular Surgery 03/11/22 documented as of this encounter
--- OUTSIDE RECORDS SUMMARY | 2024-06-18 18:05 | XMS_ITS | Encounter Summary ---
Author Organization [facility] Medical Group Address [address] [facility] [address] [place] [address] Care Team Providers Care Remote Broadcast Engineer Name Role Phone Trey Pinedo MD Unavailable [phone] Christine Herzog MD Primary Care Provide r Albert Craft MD Unavailable [phone] Chintan Figueroa MD Unavailable [phone] Jameel Bloom DPM Unavailable [phone] Gadiel Genao MD Unavailable Lexii Arnold MA Unavailable [phone] Reason for Visit * Reason Comments Unsuccessful Phone Call 3 B ED 09/16 Fa ll, skin tear right hand, Dtap Encounter Details Date Type Department Care Team (Late st Contact Info) Description 09/20/2022 [facility] ED Outreach [facility] Accountable Care Organization [address] [place] [address] Lexii Arnold MA [address] [facility] [address] [place] [address] Social History Tobacco Use Types Packs/Day Years Used Date Smoking Tobacco: Former Cigarettes 1 40 1 969 - 2009 Smokeless Tobacco: Never Comments:Quit in 2010 Alcohol Use Standard Drinks/Week [...] you attend chur ch or islam services? Never 08/12/2022 Do you belong to any clubs o r organizations such as advent groups, unions, fraternal or athletic groups, or [...] on file 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 MACHINE CAPTAIN Gender Identity Not on file Sexual Orientation Straight 01/23/2021 10 :16 PM CDT documented as of this encounter Progress Notes * Lexii Aronld MA - 09/20/2022 8:51 AM CDT 2nd Attempt to contact patient. Left mesasge with my contact information. Thank You, HORACIO Rueda ACO Care Fashion Journalist [facility] documented in this encounter Plan of Treatment Not on file documented as of this encounter Goals Goal Patient Goal Type Associated Problems Recent Progress Patient-Stated? Author GUL[facility]AN General Goal - Patient schedules and keeps appointments with all recommended providers ACO Care Management On track(2022 11:14 AM MACHINE CAPTAIN) No Sepideh Hi, SUE Note: Problem: Potential [...] documented as of this encounter Care Teams Remote Broadcast Engineer Relationship Specialty Start Date End Date Christine Herzog MD [address] [facility] [address] [place] [address] PCP - General Internal Medicine 12/02/21 Trey Pinedo MD [address] [place] [address] [address] [place] [address] Consulting Physician Neurology 05/09/19 Albert Craft MD [address] [place] [address] [address] [place] [address] Consulting Physician Gastroenterology 03/11/22 Chintan Figueroa MD [address] [place] [address] [address] [place] [address] Consulting Physician Hematology and Oncology 03/11/22 Jameel Bloom DPM [address] [place] [address] Consulting Physician Orthotics 03/11/22 Gadiel Genao MD [address] [place] [address] Surgeon Vascular Surgery 03/11/22 Lexii Arnold, ELBERT [address] [place] [address] [address] [place] [address] ACO Care Fashion Journalist 09/19/22 09/20/22 documented as of this encounter
--- OUTSIDE RECORDS SUMMARY | 2024-06-18 18:05 | XMS_ITS | Encounter Summary ---
Author Organization [facility] Healthcare Address [address] [place] [address] Care Team Providers Care Screening Representative Name Role Phone Trey Pinedo MD Unavailable [phone] Christine Herzog MD Primary Care Provide r Albert Craft MD Unavailable [phone] Chintan Figueroa MD Unavailable [phone] Jameel Bloom DPM Unavailable [phone] Gadiel Genao MD Unavailable [phone] Reason for Visit * Reason Comments Hand Pain Encounter Details Date Type Department Care Team (Late st Contact Info) Description 09/25/2022 8:52 PM CDT - 09/25/2022 9:43 PM CDT Emergency [facility] Emergency Department [facility] [place] [address] Contusion of right hand, subsequent encounter (Primary Dx) Discharge Disposition: Discharge to home or self [...] often do you attend chur ch or quaker services? Never 08/12/2022 Do you belong to any clubs o r organizations such as zoroastrianism groups, unions, fraternal or athletic groups, or [...] in a care home (including now)? No 08/12/2022 Personal Safety Answer Date Recorded Have you ever been in or are you currently in a harmful physical or emotional relationship or is someone making you feel afraid or unsafe? 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 Midlevel notified. Pulse 75 09/25/2022 9:39 PM CDT Temperature 36.4 ??C (97.6 ??F) 09/25/2022 8 :03 PM CDT Respiratory Rate 18 09/25/2022 9:39 PM CDT Oxygen Saturation 96% 09/25/2022 9:3 9 PM CDT Inhaled Oxygen Concentration - - Weight 80.3 kg (177 lb 0.5 oz) 09/25/2022 8:03 PM CDT Height 170.2 cm (5' 7 ) 09/25/2022 8:03 PM CDT Body Mass Index 27.73 09/25/2022 8:03 PM CDT documented in this encounter Discharge Instructions * Discharge Instructions* Susanne Plaza NP - 09/25/2022 9:30 PM CDT Continue to keep her hand elevated above the level of heart and continue to use Enrrique wrap to decrease swelling, follow-up with primary care doctor next 2-3 days for re-evaluation, continue take all home medicine prescribed, return to ED immediately for any worsening of symptoms. documented in this encounter Medications at Time of Discharge aspirin 81 mg tablet Take one by mouth one time per day 0 0 06/27/2008 amLODIPine (NORVASC) 2.5 mg tablet Take 1 tablet (2.5 mg total) by mouth daily 30 tablet 1 08/12/2022 10/10/2022 apixaban (ELIQUIS) 5 mg tabletIndications: atrial fibrillation Take 1 tablet (5 mg total) by mouth 2 (two) times a day 60 tablet 1 08/11/2022 10/10/2022 atorvastatin (LIPITOR) 40 mg tablet Take 1 tablet (40 mg total) by mouth daily 90 tablet 1 06/06/2022 10/14/2022 finasteride (PROSCAR) 5 mg tabletIndications: benign prostatic hyperplasia with lower urinary tract sx Take 1 tablet (5 mg total) by mouth daily 90 tablet 3 11/05/2021 10/18/2022 lisinopriL (PRINIVIL,ZESTRIL) 20 mg tablet Take 1 tablet (20 mg total) by mouth daily 30 tablet 1 08/11/2022 10/10/2022 magnesium oxide (MAG-OX) 400 mg (241.3 mg elemental magnesium) tabletIndications: hypomagnesemia Take 1 tablet (400 mg total) by mouth 2 (two) times a day 180 tablet 1 09/13/2022 10/10/2022 memantine (NAMENDA) 5 mg tablet Take 1 tablet (5 mg total) by mouth 2 (two) times a day 60 tablet 11 09/19/2022 01/24/2023 metoprolol XL (TOPROL-XL) 25 mg extended release tablet TAKE 1 TABLET BY MOUTH DAILY 90 tablet 1 09/12/2022 11/16/2022 documented as of this encounter Discharge Disposition Disposition Code Departure Means Destination Comment s Discharge to home or self care documented in this encounter ED Notes * Susanne Plaza NP - 09/25/2022 9:30 PM CDT Images from the original note were not included. CHIEF COMPLAINT: Chief Complaint Patient presents with Hand Pain HPI 10:03 PM Villa Zuniga is a 76 y.o. male presenting to the ED c/o right hand pain. He states that approximately a week ago he fell in bathroom and hurt his right hand, he was seen at Hospital, hadx-ray done that does not show any fracture that time, however today he noticed worsening of the pain along with bruising and swelling so he came in here for further evaluation. He denies any other injury after the 1st injury. He denies any loss of sensation, numbness or tingling or weakness to his right hand or finger. Denies any other injury or any other complaint. History provided by patient. PCP: Christine Herzog MD PAST MEDICAL HISTORY Past Medical History: Diagnosis Date Mayo esophagus Chronic obstructive pulmonary disease (CMS/HCC) (HCC) COPD Diabetes mellitus (HCC) Diabetes GERD (gastroesophageal reflux disease) Heart disease HX OTHER MEDICAL 2012 Heart stents HX OTHER MEDICAL urinary stent s placed Hyperlipidemia Hyperlipidemia Hypertension Hypertension Kidney stone Polycythemia PAST SURGICAL HISTORY Past Surgical History: Procedure Laterality Date COLONOSCOPY 2009 OTHER SURGICAL HISTORY 2002 Carpal tunnel release both OTHER SURGICAL HISTORY karen total knees OTHER SURGICAL HISTORY 2012 Heart stents: [facility] FAMILY HISTORY Family History Problem Relation Age of Onset Hypertension Mother Hypertension; Heart disease Mother Heart disease; Diabetes Mother Diabetes mellitus; Stroke Mother Stroke; Cancer Mother Cancer; Heart attack Mother Alzheimer's disease Father Alzheimer's Disease; Memory loss Father Cancer Brother MEDICATIONS GIVEN IN THE ED Medications - No data to display CURRENT HOME MEDICATIONS No current facility-administered medications for this encounter. Current Outpatient Medications: amLODIPine (NORVASC) 2.5 mg tablet, Take 1 tablet (2.5 mg total) by mouth daily, Disp: 30 tablet, Rfl: 1 apixaban (ELIQUIS) 5 mg tablet, Take 1 tablet (5 mg total) by mouth 2 (two) times a day, Disp: 60 tablet, Rfl: 1 aspirin 81 mg tablet, Take one by mouth one time per day, Disp: 0, Rfl: 0 atorvastatin (LIPITOR) 40 mg tablet, Take 1 tablet (40 mg total) by mouth daily, Disp: 90 tablet, Rfl: 1 finasteride (PROSCAR) 5 mg tablet, Take 1 tablet (5 mg total) by mouth daily, Disp: 90 tablet, Rfl:3 lisinopriL (PRINIVIL,ZESTRIL) 20 mg tablet, Take 1 tablet (20 mg total) by mouth daily, Disp: 30 tablet, Rfl: 1 magnesium oxide (MAG-OX) 400 mg (241.3 mg elemental magnesium) tablet, Take 1 tablet (400 mg total)by mouth 2 (two) times a day, Disp: 180 tablet, Rfl: 1 memantine (NAMENDA) 5 mg tablet, Take 1 tablet (5 mg total) by mouth 2 (two) times a day, Disp: 60 tablet, Rfl: 11 metoprolol XL (TOPROL-XL) 25 mg extended release tablet, TAKE 1 TABLET BY MOUTH DAILY, Disp: 90 tablet, Rfl: 1 ALLERGIES Allergies Allergen Reactions Ciprofloxacin Rash Reaction: RASH, Reaction: Rash, SOCIAL HISTORY Social History Tobacco Use Smoking status: Former Packs/day: 1.00 Years: 40.00 Pack years: 40.00 Types: Cigarettes Quit date: 2008 Years since quittin.2 Smokeless tobacco: Never Tobacco comments: Quit in 2009 Substance and Sexual Activity Drug use: No Sexual activity: Not Currently Partners: Female control/protection: None Alcohol Use: Not At Risk Frequency of Alcohol Consumption: Never Average Number of Drinks: Patient does not drink Frequency of Binge Drinking: Never PHYSICAL EXAM TRIAGE VITAL SIGNS: ED Triage Vitals Temp Pulse Resp BP SpO2 09/25/22200209/25/22200209/25/22200209/25/22200209/25/222002 36.4 ??C (97.6 ??F) 73 18 (!) 186/75 99 % Temp src Heart Rate Source Patient Position BP Location FiO2 (%) 09/25/22200209/25/22213809/25/22213809/25/222138 -- Oral Pulse Oximetry Sitting Left arm Height Height Method Weight Weight Method 09/25/22200209/25/22200209/25/22200209/25/222002 1.702 m (5' 7 ) Stated 80.3 kg (177 lb 0.5 oz) Standing scale Physical Exam Vitals and nursing note reviewed. Constitutional: General: He is awake. Appearance: Normal appearance. He is well-developed. He is not ill-appearing, toxic-appearing or diaphoretic. HENT: Head: Normocephalic and atraumatic. Jaw: There is normal jaw occlusion. Right Ear: Hearing and external ear normal. Left Ear: Hearing and external ear normal. Nose: Nose normal. Mouth/Throat: Mouth: Mucous membranes are moist. Pharynx: Oropharynx is clear. Uvula midline. Eyes: General: Lids are normal. Vision grossly intact. Extraocular Movements: Extraocular movements intact. Conjunctiva/sclera: Conjunctivae normal. Neck: Trachea: Trachea and phonation normal. Cardiovascular: Rate and Rhythm: Normal rate and regular rhythm. Pulses: Radial pulses are 2+ on the right side and 2+ on the left side. Heart sounds: Normal heart sounds. No murmur heard. Pulmonary: Effort: Pulmonary effort is normal. No respiratory distress. Breath sounds: Normal breath sounds and air entry. Abdominal: Palpations: Abdomen is soft. Tenderness: There is no abdominal tenderness. Musculoskeletal: Right hand: Swelling and tenderness present. Left hand: Normal. Arms: Cervical back: Full passive range of motion without pain, normal range of motion and neck supple. Right lower leg: No edema. Left lower leg: No edema. Comments: Tenderness on palpitation, bruising, edema noted on right hand. No obvious deformity noted on exam. Equal bilateral 2+ radial pulses, sensation and cap refill. Skin: General: Skin is warm and dry. Capillary Refill: Capillary refill takes less than 2 seconds. Neurological: General: No focal deficit present. Mental Status: He is alert and oriented to person, place, and time. GCS: GCS eye subscore is 4. GCS verbal subscore is 5. GCS motor subscore is 6. Cranial Nerves: Cranial nerves 2-12 are intact. Sensory: Sensation is intact. Motor: Motor function is intact. Deep Tendon Reflexes: Reflexes are normal and symmetric. Psychiatric: Attention and Perception: Attention and perception normal. Mood and Affect: Mood and affect normal. Speech: Speech normal. Behavior: Behavior normal. Behavior is cooperative. Thought Content: Thought content normal. LABS Labs Reviewed - No data to display RADIOLOGY XR Hand Right 3 or More Views Result Date: 09/25/2022 Narrative: EXAM DESCRIPTION: XR HAND RIGHT 3 OR MORE VIEWS REASON FOR STUDY: Hand pain after fall 8days ago. Increased bruising to fingers and pain worsening at base of 1st, 4th and 5th fingers. TECHNIQUE: Frontal, lateral and oblique radiographic views acquired of the right hand. COMPARISON: Right hand radiographs 09/16/2022 FINDINGS: BONES/JOINTS: No acute fracture or dislocation. 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 There is mild diffuse interphalangeal joint osteoarthritis. Mild joint space narrowing at the 3rd metacarpophalangeal joint. SOFT TISSUES: Atherosclerotic calcification of the visualized vasculature. Chondrocalcinosis of the TFCC. OTHER: No other significantfinding. IMPRESSION: No acute osseous abnormality. 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 Mild diffuse interphalangeal joint osteoarthritis. THIS IS AN ELECTRONICALLY VERIFIED FINAL REPORT 09/25/2022 8:55 PM - Electronically signed by Rob Guthrie M.D. LB: JUSTINA Report ID: [id number] Reading Location: [id number] XR Hand Right 3 or More Views Result Date: 09/16/2022 Narrative: EXAM DESCRIPTION: XR HAND RIGHT 3 OR MORE VIEWS REASON FOR STUDY: accidental fall Pt states he fell this morning, has bruising and some small lacs Over the top of his hand TECHNIQUE: Frontal, lateral and oblique radiographic views acquired of the right hand. COMPARISON: Right hand radiographs 10/15/2016 FINDINGS: BONES/JOINTS: No definite acute fracture or dislocation. 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 Significant degenerative change also present at the 1st carpometacarpal joint and the triscaphe joint. Gedw-tw-vyruebud 1st interphalangeal and 2nd through 5th distal interphalangeal degeneration. SOFT TISSUES: Marked soft tissue swelling along the dorsum of the hand. Severe atherosclerotic calcifications. OTHER: No other significant finding. IMPRESSION: Marked soft tissue swelling along the dorsum of the hand. No definite fracture seen. Significant degenerative changes as above. THIS IS AN ELECTRONICALLY VERIFIED FINAL REPORT 09/16/2022 8:04 AM- Electronically signed by Albino MALCOLM T: Report ID: [id number] Reading Location: [id number] ED COURSE/MEDICAL DECISION MAKING ED Course as of 09/25/222202 Time: 09/26 2123 Comment: He injured his right hand after he fell approximately a week ago, hydrated negative x-ray at that time, he came in today because of worsening of pain and swelling. On exam he does have a mild bruising and tenderness and swelling to his right hand however there is no obvious deformity, he is intact neurovascular status, x-ray does not show any fracture. I explained this result to him. Advised him to continue to use Enrrique wrap, keep it has elevated above the level of heart to decrease swelling, advised to follow-up with primary care doctor next 2-3 days for re-evaluation return to ED immediately for any worsening symptoms. He agrees with this plan. By: Susanne Plaza NP Procedures FINAL IMPRESSION Contusion of right hand, subsequent encounter DISPOSITION: Home All findings were discussed with patient. Pt agreeable with plan. Non toxic appearing, vitals stable. Patient stable for discharge home. Given return to ER precautions Close outpatient follow-up with a low threshold to return has been mandated , concerning symptoms have been emphasized in detail, and this patient expresses understanding PATIENT INSTRUCTED TO FOLLOW UP Christine Herzog MD [address] [place] [address] [address] SALINAS [address] [place] [id number] DISCHARGE MEDICATIONS Your medication list ASK your doctor about these medications Instructions Last Dose Given Next Dose Due amLODIPine 2.5 mg tablet Commonly known as: NORVASC Take 1 tablet (2.5 mg total) by mouth daily apixaban 5 mg tablet Commonly known as: ELIQUIS Take 1 tablet (5 mg total) by mouth 2 (two) times a day aspirin 81 mg enteric coated tablet Doctor's comments: Take one by mouth one time per day atorvastatin 40 mg tablet Commonly known as: LIPITOR Take 1 tablet (40 mg total) by mouth daily finasteride 5 mg tablet Doctor's comments: Requesting 1 year supply Commonly known as: PROSCAR Take 1 tablet (5 mg total) by mouth daily lisinopriL 20 mg tablet Commonly known as: PRINIVIL,ZESTRIL Take 1 tablet (20 mg total) by mouth daily magnesium oxide 400 mg (241.3 mg elemental magnesium) tablet Commonly known as: MAG-OX Take 1 tablet (400 mg total) by mouth 2 (two) times a day memantine 5 mg tablet Commonly known as: NAMENDA Take 1 tablet (5 mg total) by mouth 2 (two) times a day metoprolol XL 25 mg extended release tablet Doctor's comments: Requesting 1 year supply Commonly known as: TOPROL-XL TAKE 1 TABLET BY MOUTH DAILY This examination was transcribed using the [employer] voice recognition system without human clinical resource nurse. In an effort to expedite patient care, this report has not been adjusted for typographical, grammatical, and syntax by a trained medical scribe. Susanne Plaza NP 09/25/222202 Cosigned by Citlali Cummings MD at 09/25/2022 10:50 PM CDT * Myrna Walter RN - 09/25/2022 8:01 PM CDT Rt hand pain s/p fall 8 days ago. Seen and treated at [facility] after injury. Increased bruising to fingers and pain worsening at base of 1st, 4th and 5th fingers. Brisk cap refill, sensation intact documented in this encounter Plan of Treatment Not on file documented as of this encounter Goals Goal Patient Goal Type Associated Problems Recent Progress Patient-Stated? 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 XR HAND RIGHT 3 OR MORE VIEWS REASON FOR STUDY: ?? Hand pain after fall 8 days ago. ??Increased bruising to fingers and pain worsening at base of 1st, 4th and 5th fingers. ? TECHNIQUE: Frontal, lateral and oblique ??radiographic views acquired of the right hand. COMPARISON: ?? Right hand radiographs 09/16/2022 FINDINGS: BONES/JOINTS: ?? No acute fracture or dislocation. 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 ??There is mild diffuse interphalangeal joint osteoarthritis. ?Mild joint space narrowing at the 3rd metacarpophalangeal joint. SOFT TISSUES: ?? Atherosclerotic calcification of the visualized vasculature. ?? Chondrocalcinosis of the TFCC. OTHER: ?? No other significant finding. IMPRESSION: No acute osseous abnormality. 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 Mild diffuse interphalangeal joint osteoarthritis. THIS IS AN ELECTRONICALLY VERIFIED FINAL REPORT 09/25/2022 8:55 PM - Electronically signed by ??Rob Guthrie M.D. LB: JUSTINA D: ??09/25/2022 8:55 PM T: ??09/25/2022 8:55 PM Report ID: [id number] Reading Location: ??[id number] Procedure Note Rob Guthrie MD - 09/25/2022 EXAM DESCRIPTION: XR HAND RIGHT 3 OR MORE VIEWS REASON FOR STUDY: Hand pain after fall 8 days ago. Increased bruisingto fingers and pain worsening at base of 1st, 4th and 5th fingers. TECHNIQUE: Frontal, lateral and oblique radiographic views acquired ofthe right hand. COMPARISON: Right hand radiographs 09/16/2022 FINDINGS: BONES/JOINTS: No acute fracture or dislocation. 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 There is mild diffuse interphalangeal joint osteoarthritis. Mild joint space narrowing at the3rd metacarpophalangeal joint. SOFT TISSUES: Atherosclerotic calcification of the visualizedvasculature. Chondrocalcinosis of the TFCC. OTHER: No other significant finding. IMPRESSION: No acute osseous abnormality. 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 Mild diffuse interphalangeal joint osteoarthritis. THIS IS AN ELECTRONICALLY VERIFIED FINAL REPORT 09/25/2022 8:55 PM - Electronically signed by Rob Guthrie M.D. 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 08/16/2022 08/17/2022 11/14/2022 3:05 AM C DT documented as of this encounter Care Teams Screening Representative Relationship Specialty Start Date End Date Christine Herzog MD [address] [facility] [address] [place] [address] PCP - General Internal Medicine 12/02/21 Trey Pinedo MD [address] [facility] [address] [place] [address] Consulting Physician Neurology 05/09/19 Albert Craft MD [address] [place] [address] [address]IN[address] [place] [id number] Consulting Physician Gastroenterology 03/11/22 Chintan Figueroa MD [address] [place] [address] DR [address]IN[address] [place] [id number] Consulting Physician Hematology and Oncology 03/11/22 Jameel Bloom DPM [address] [place] [address] Consulting Physician Orthotics 03/11/22 Gadiel Genao MD [address] [place] [address] Surgeon Vascular Surgery 03/11/22 documented as of this encounter
--- OUTSIDE RECORDS SUMMARY | 2024-06-18 18:05 | XMS_ITS | Encounter Summary ---
Author Organization [facility] Address [address] [place] [address] Phone Care Team Providers Care Marble Coper Name Role Phone Trey Pinedo MD Unavailable Christine Herzog MD Primary Care Provide r Albert Craft MD Unavailable [phone] Chintan Figueroa MD Unavailable [phone] Jameel Bloom DPM Unavailable [phone] Gadiel Genao MD Unavailable Reason for Visit * Reason Comments Follow-up Polycythemia Encounter Details Date Type Department Care Team (Late st Contact Info) Description 11/18/2022 1:30 PM CDT Office Visit [facility] 4 [facility] Medical Office [address] [place] [address] Monika Castellano, CHEMISTRY 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 [address] [place] [address] [address] [place] [address] Polycythemia Social History Tobacco Use Types Packs/Day [...] How often do you attend chur or restoration services? 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 Gender Identity Not on file Sexual Orientation Straight 01/23/2021 10 :16 PM CDT documented as of this encounter Last Filed Vital Signs Vital Sign Reading Time Taken Comments Blood Pressure 177/77 11/18/2022 1:09 PM CDT Pulse 72 11/18/2022 1:09 PM CDT Temperature 36.2 ??C (97.1 ??F) 11/18/2022 1:09 PM CD T Respiratory Rate 20 11/18/2022 1:09 PM CDT Oxygen Saturation 96% 11/18/2022 1:09 PM CDT Inhaled Oxygen Concentration - - Weight 83 kg (183 lb) 11/18/2022 1:09 PM CDT Height 170.2 cm (5' 7 ) 11/18/2022 1:09 PM CDT Body Mass Index 28.66 11/18/2022 1:09 PM CDT documented in this encounter Progress Notes * Monika Castellano, CHEMISTRY 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 - 11/18/2022 1:30 PM CDT Images from the original note [...] grams/deciliter. Patient reported he established care with quality checker, Dr. Hoskins who recommended regular phlebotomy to [...] today for reassessment of his erythrocytosis. He denies SOB, dizziness, arm or leg pains. He periodically receives phlebotomies. No other concerns. Review of Systems Review of systems positive for symptoms as per interval history. All other review of systems negative. Objective Vitals: Vitals: 11/18/22 1309 BP: (!) 177/77 BP Location: Right arm Pulse: 72 Resp: 20 Temp: 36.2 ??C (97.1 ??F) TempSrc: Skin SpO2: 96% Weight: 83 kg (183 lb) Height: 170.2 cm (5' 7 ) PHYSICAL EXAM: Physical Exam -GENERAL: calm -EYES: Extraocular movements intact -ENT: Neck supple, Septum is midline. -LUNG: Clear to auscultation bilaterally, No wheezes, No crackles -CVS: Regular rate rhythm, S1 and S2 normal, No murmurs, -ABDOMEN: Soft, nondistended, Nontender, Bowel sounds observed -EXT: no lower Ext edema. -NEURO: no deficit -SKIN: Skin color, texture, turgor normal. No rashes or lesions Lab/Radiology/Diagnostic Review: Hematology Lab History Some values may be hidden. Unless noted otherwise, only the newest values recorded on each date aredisplayed. Labs - Hematology Latest Ref Range 08/10/22 08/11/22 09/22/22 11/18/22 WBC 3.8 - 9.9 K/cumm 6.2 6.1 5.5 7.0 Total Hb, POC 13.0 - 17.5 g/dL 13.1 13.8 14.1 14.8 Hct 38.9 - 50.3 % 40.5 44.5 44.4 46.6 Plt 150 - 400 K/cumm 184 171 190 195 Neutrophil abs 1.7 - 6.5 K/cumm 3.9 4.6 Lymphocytes, abs 0.8 - 3.3 K/cumm 0.9 1.3 Chemistry Component Value Date/Time SODIUM 142 08/11/2022 0438 POTASSIUM 3.9 08/11/2022 0438 POTASSIUM 3.8 03/22/2017 0925 CHLORIDE 108 08/11/2022 0438 CO2 26 08/11/2022 0438 BUNSER 22 08/11/2022 0438 CREATININE 1.10 08/11/2022 0438 GLUCOSE 93 08/11/2022 0438 Component Value Date/Time CALCIUM 8.3 (L) 08/11/2022 0438 ALKPHOS 109 08/06/2022 0032 AST 16 08/06/2022 0032 ALT 14 08/06/2022 0032 BILITOT 0.4 08/06/2022 0032 Tumor Marker History Some values may be hidden. Unless noted otherwise, only the newest values recorded on each date aredisplayed. Tumor Markers Latest Ref Range 12/08/21 08/06/22 NT-proBNP <=450 pg/mL 2,618 (A) 2,211 (A) Trop T hs <=22 ng/L Some abnormal values recorded on this date have been omitted. (A) Abnormal value Comments are available for some flowsheets but are not being displayed. No results found. 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 Hematocrit is 46.6. PLAN: Receive phlebotomy today. Continue phlebotomies q [...] physician. NIURKA Sidhu Nurse Practitioner Medical Oncology [facility] documented in this encounter Miscellaneous Notes * Addendum Note - Brittany Bazzi CLT - 11/18/2022 1:30 PM CDTAddended by: BRITTANY BAZZI on: 01/26/2023 01:04 PM Modules accepted: Orders documented in this encounter Plan of Treatment Not on file documented as of this encounter Goals Goal Patient Goal Type Associated Problems Recent Progress Patient-Stated? Author GULSHAN General Goal - Patient schedules and keeps appointments with all recommended providers ACO Care Management On track(2022 11:14 AM GSE MECHANIC) Sepideh Guo RN Note: Problem: Potential for [...] rst Ordered Date ONCBCN CLINIC APPOINTMENT REQUEST 2 023 11/18/2022 documented in this encounter Care Teams Marble Coper Relationship Specialty Start Date End Date Christine Herzog MD [address] [place] [address] [address] [place] [address] PCP - General Internal Medicine 12/02/21 Trey Pinedo MD [address] [place] [address] [address] [place] [address] Consulting Physician Neurology 05/09/19 Albert Craft MD [address] [facility] [address] [place] [address] Consulting Physician Gastroenterology 03/11/22 Chintan Figueroa MD [address] [facility] [address] [place] [address] Consulting Physician Hematology and Oncology 03/11/22 Jameel Bloom DPM [address] [place] [address] Consulting Physician Orthotics 03/11/22 Gadiel Genao MD [address] [place] [address] Surgeon Vascular Surgery 03/11/22 documented as of this encounter
--- OUTSIDE RECORDS SUMMARY | 2024-06-18 18:05 | XMS_ITS | Encounter Summary ---
Author Organization [facility] Address [address] [place] [address] Care Team Providers Care Defective Cigarette Slitter Name Role Phone Trey Pinedo MD Unavailable [phone] Christine Herzog MD Primary Care Provide r Albert Craft MD Unavailable [phone] Chintan Figueroa MD Unavailable [phone] Jameel Bloom DPM Unavailable [phone] Gadiel Genao MD Unavailable Encounter Details Date Type Department Care Team (Late st Contact Info) Description 11/16/2022 Orders Only [facility] Primary Care at [address] [place] [address] Christine Herzog MD [address] [place] [address] [address] [place] [address] Social History Tobacco Use Types [...] any clubs o r organizations such as caodaism groups, unions, fraternal or athletic groups, or [...] slept in a penitentiary (including now)? No 09/28/2022 Personal Safety Answer Date Recorded Have you ever been in or are you currently in a harmful physical or emotional relationship or is someone making you feel afraid or unsafe? 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 Author GULSHAN General Goal - Patient schedules and keeps appointments with all recommended providers ACO Care Management On track(2022 11:14 AM PARQUETRY LAYER) No Sepideh Hi RN Note: Problem: Potential [...] on filedocumented in this encounter Care Teams Defective Cigarette Slitter Relationship Specialty Start Date End Date Christine Herzog MD [address] [facility] [address] [place] [address] PCP - General Internal Medicine 12/02/21 Trey Pinedo MD [address] [facility] [address] [place] [address] Consulting Physician Neurology 05/09/19 Albert Craft MD [address] [facility] [address] [place] [address] Consulting Physician Gastroenterology 03/11/22 Chintan Figueroa MD [address] [facility] [address] [place] [address] Consulting Physician Hematology and Oncology 03/11/22 Jameel Bloom DPM [address] [place] [address] Consulting Physician Orthotics 03/11/22 Gadiel Genao MD [address] [place] [address] Surgeon Vascular Surgery 03/11/22 documented as of this encounter
--- OUTSIDE RECORDS SUMMARY | 2024-06-18 18:05 | XMS_ITS | Encounter Summary ---
Author Organization [facility] Address [address] [facility] [address] [place] [address] Care Team Providers Care Customer Service Consultant Name Role Phone Trey Pinedo MD Unavailable [phone] Christine Herzog MD Primary Care Provide r Albert Craft MD Unavailable [phone] Chintan Figueroa MD Unavailable [phone] Jameel Bloom DPM Unavailable [phone] Gaidel Genao MD Unavailable [phone] Lexii Arnold MA Unavailable [phone] Reason for Visit * Reason Comments Unsuccessful Phone Call [facility] 09/16 Fa ll, skin tear right hand, Dtap Encounter Details Date Type Department Care Team (Late st Contact Info) Description 09/19/2022 [facility] ED Outreach [facility] Accountable Care Organization [address] [place] [address] Lexii Arnold MA [address] [facility] [address] [place] [address] Social History Tobacco Use Types Packs/Day Years [...] often do you attend chur ch or yarsanism services? Never 08/12/2022 Do you belong to [...] points, staff should administer the PHQ-9) 0 04/19/2022 PRAPARE - Transportation Answer Date Re corded [...] [place] [facility] [place] (including now)? 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 Left message with my contact information. [facility] letter sent via27 Perry. Thank You, HORACIO Rueda ACO Care Survey Coordinator [facility] documented in this encounter Plan of Treatment Not on file documented as of this encounter Goals Goal Patient Goal Type Associated Problems Recent Progress Patient-Stated? Author GULSHAN General Goal - Patient schedules and keeps appointments with all recommended providers ACO Care Management On track(2022 11:14 AM WIRE BRUSH OPERATOR) No Sepideh Hi RN Note: Problem: Potential [...] documented as of this encounter Care Teams Customer Service Consultant Relationship Specialty Start Date End Date Christine Herzog MD [address] [facility] [address] [place] [address] PCP - General Internal Medicine 12/02/21 Trey Pinedo MD [address] [place] [address] [address] [place] [address] Consulting Physician Neurology 05/09/19 Albert Craft MD [address] [facility] [address] [place] [address] Consulting Physician Gastroenterology 03/11/22 Chintan Figueroa MD [address] [place] [address] [address] [place] [address] Consulting Physician Hematology and Oncology 03/11/22 Jameel Bloom DPM [address] [place] [address] Consulting Physician Orthotics 03/11/22 Gadiel Genao MD [address] [place] [address] Surgeon Vascular Surgery 03/11/22 Lexii Arnold MA [address] [place] [address] [address] [place] [address] ACO Care Survey Coordinator 09/19/22 09/20/22 documented as of this encounter
--- OUTSIDE RECORDS SUMMARY | 2024-06-18 18:05 | XMS_ITS | Encounter Summary ---
Author Organization [facility] Address [address] [place] [address] Care Team Providers Care Demolition Crane Operator Name Role Phone Trey Pinedo MD Unavailable [phone] Christine Herzog MD Primary Care Provide r Albert Craft MD Unavailable [phone] Chintan Figueroa MD Unavailable [phone] Jameel Bloom DPM Unavailable [phone] Gadiel Genao MD Unavailable [phone] Reason for Visit * Reason Comments OP Infusion Here for phlebotomy. Hematocrit 46.5. Encounter Details Date Type Department Care Team (Late st Contact Info) Description 01/26/2023 2:00 PM CDT Infusion [facility] [address] [place] [address] Polycythemia (Primary Dx) Social History Tobacco Use [...] often do you attend chur ch or scientologist services? 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 His CBC today resulted in a Hematocrit of 46.5. He seated himself in a chair. Assessment completed. At 14:20 a#20 G intima was inserted in his right top forearm per protocol. At 14:25 Phlebotomy was started using 60 ml syringes. At 14:50 phlebotomy was completed and a total of 500 ml of whole blood was removed. Intima was removed. Light pressure was held to site with a cotton ball, that was secured with Coband. Patient was offered something to drink before and after the procedure, but he refused. Patient rested, reclined for approximately fifteen minutes. His blood pressure was taken and a result of 130/71 was received. Patient stood up, and reported I feel okay . He denied any dizziness or light headedness, and ambulated out to the waiting room to get his appointments. His current appointments were not succinct with patient's son's schedule, as he is who is bringing him to his appointments. Patient left in stable condition, in the ambulatory mode with the assistance of his wheeled walker. documented in this encounter Plan of Treatment Not on file documented as of this encounter Goals Goal Patient Goal Type Associated Problems Recent Progress Patient-Stated? Author GULSHAN General Goal - Patient schedules and keeps appointments with all recommended providers ACO Care Management On track(2022 11:14 AM BRANCH LEAD) Sepideh Guo, RN Note: Problem: Potential [...] Orde red Date ONCBCN THERAPEUTIC PHLEBOTOMY 1 01/26/2023 Appointment Requests Count Last Ordered Date Fi rst Ordered Date ONCBCN THERAPEUTIC PHLEBOTOM Y APPOINTMENT REQUEST 1 01/26/2023 documented in this encounter Care Teams Demolition Crane Operator Relationship Specialty Start Date End Date Christine Herzog MD [address] [facility] [address] [place] [address] PCP - General Internal Medicine 12/02/21 Trey Pinedo MD [address] [facility] [address] [place] [address] Consulting Physician Neurology 05/09/19 Albert Craft MD [address] [facility] [place] [place] [address] Consulting Physician Gastroenterology 03/11/22 Chintan Figueroa MD [address] [place] [address] [address] Consulting Physician Hematology and Oncology 03/11/22 Jameel Bloom DPM [address] [place] [address] Consulting Physician Orthotics 03/11/22 Gadiel Genao MD [address] [place] [address] Surgeon Vascular Surgery 03/11/22 documented as of this encounter
--- OUTSIDE RECORDS SUMMARY | 2024-06-18 18:05 | XMS_ITS | Encounter Summary ---
Author Organization [facility] Address [address] [place] [address] Care Team Providers Care Confectionery Drops Machine Operator Name Role Phone Trey Pinedo MD Unavailable [phone] Christine Herzog MD Primary Care Provide r Albert Craft MD Unavailable [phone] Chintan Figueroa MD Unavailable [phone] Jameel Bloom DPM Unavailable [phone] Gadiel Genao MD Unavailable [phone] Encounter Details Date Type Department Care Team (Late st Contact Info) Description 11/17/2022 Orders Only [facility] Primary Care at [address] [place] [address] Christine Herzog MD [address] [place] [address] [address] [place] [address] Healthcare maintenance (Primary Dx); Type 2 diabetes mellitus without complication, unspecified whether [place] [facility] insulin use (HCC) Social History Tobacco Use [...] on file 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 SHIP 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 Author GULSHAN General Goal - Patient schedules and keeps appointments with all recommended providers ACO Care Management On track(2022 11:14 AM SHIP WASHER) No Sepideh Hi RN Note: Problem: Potential [...] this encounter Results * (ABNORMAL) Hemoglobin A1c (01/26/2023 12:39 PM [...] children were not included. ?? (Diabetes Care 31:[id number], 2008). ??The eAG is not equivalent to a fasting glucose. Blood 01/26/2023 12:3 9 PM CDT 01/26/2023 1:57 PM CDT Narrative [facility] (BETTY) - 01/26/2023 2:26 PM CDT fasting Christine Herzog MD LAB BLOOD ORDERABLES Final Result [facility] ([facility]ETTY) 1 [facility] Department [place] [address] * (ABNORMAL) Lipid panel (01/26/2023 12:39 PM CDT) Cholesterol 136 30 - 199 mg/dL [facility] [...] ratio 3 [facility]AN [facility] (BETTY) Blood 01/26/2023 12:3 9 PM CDT 01/26/2023 1:56 PM CDT Narrative [facility] ([facility]ETTY) - 01/26/2023 2:36 PM CDT fasting us Christine Herzog MD LAB BLOOD ORDERABLES Final Result [facility] ([facility]ETTY) 1 [facility] Department [place] [address] * (ABNORMAL) CBC with auto differential (01/26/2023 12:39 PM CDT) WBC 7.8 3.8 - 9.9 K/cumm [facility] ([facility]ETTY) Hgb 14.6 13.0 - 17.5 g/dL [facility] (BETTY) Hct 46.1 38.9 - 50.3 % [facility] (BETTY) Plt 183 150 - 400 K/cumm [facility] (BETTY) MPV 11.5 9.1 - 12.3 fL [...] PM CDT 01/26/2023 1:56 PM CDT Narrative [facility] ([facility]) - 01/26/2023 2:01 PM CDT fasting Christine Herzog MD LAB BLOOD ORDERABLES Final Result [facility] ([facility]) [address] [facility] Department [place] [address] * (ABNORMAL) Comprehensive metabolic panel (01/26/2023 12:39 PM CDT) Sodium 141 135 - 145 mmol/L [facility] ([facility]) Potassium, pl 5.0(H) 3.3 - 4.9 mmol/L [facility] ([facility]) Chloride 107 97 - 110 mmol/L [facility] ([facility]) CO2 24 22 - 32 mmol/L [facility] ([facility]) Anion gap 11 2 - 15 mmol/L [facility] ([facility]) BUN 33(H) 6 - 25 [...] (BETTY) ALT 20 7 - 55 Units/L [facility] ([facility]) AST 17 10 - 50 Units/L [facility] ([facility]) Comment:Slightly Hemolyzed S pecimen Blood 01/26/2023 12:3 9 PM CDT 01/26/2023 1:56 PM CDT Narrative [facility] ([facility]) - 01/26/2023 2:36 PM CDT fasting us Christine Herzog MD LAB BLOOD ORDERABLES Final Result [facility] ([facility]) [address] [facility] Department [place] [address] * (ABNORMAL) Albumin Creatinine Ratio, Urine (01/26/2023 12:38 PM CDT) Albumin Ur 268.5 mg/L [facility] ([facility]ETTY) Comment: Interpretive Data No reference range established. Current interpretive data was last revised 2018. Testing performed by: [facility], [address] [place] [address], [place]., [address] Creatinine Ur 157.6 mg/dL [facility] ([facility]ET[facility]) Comment: Interpretive Data No reference range established. Current interpretive data was last revised 2018. Testing performed by: [facility], [address] [place] [address]., [address] Albumin Creatinine Ratio, Ur 170(H) 1 - 29 mg/g [facility] (BETTY) Comment:Testing performed by : [facility], [address] [place] [address]., [address] Urine 01/26/2023 12:3 8 PM CDT 01/27/2023 9:10 AM CDT Narrative [facility] (BETTY) - 01/27/2023 12:57 PM CDT fasting Christine Herzog MD LAB URINE ORDERABLES Final Result [facility] (BETTY) 1 [facility] Department [place] [address] documented in this encounter Visit Diagnoses Diagnosis Healthcare maintenance- Primary Type 2 diabetes mellitus without complication, unspecified whether [facility] [facility] insulin use (HCC) Benign prostatic hyperplasia with lower urinary tract symptoms, symptom details unspecified Healthcare maintenance Type 2 diabetes mellitus without complication, unspecified whether [place] [facility] insulin use (HCC) documented in this encounter Care Teams Confectionery Drops Machine Operator Relationship Specialty Start Date End Date Christine Herzog MD [address] [place] [address] PCP - General Internal Medicine 12/02/21 Trey Pinedo MD [address] [place] [address] [address] [place] [address] Consulting Physician Neurology 05/09/19 Albert Craft MD [address] [place] [address] Consulting Physician Gastroenterology 03/11/22 Chintan Figueroa MD [address] [place] [address] Consulting Physician Hematology and Oncology 03/11/22 Jameel Bloom DPM [address] [place] [address] Consulting Physician Orthotics 03/11/22 Gadiel Genao MD [address] [place] [address] Surgeon Vascular Surgery 03/11/22 documented as of this encounter
--- OUTSIDE RECORDS SUMMARY | 2024-06-18 18:05 | XMS_ITS | Encounter Summary ---
Author Organization [facility] Healthcare Address [address] [place] [address] Care Team Providers Care Blood Tester Fowl Name Role Phone Trey Pinedo MD Unavailable [phone] Christine Herzog MD Primary Care Provide r Albert Craft MD Unavailable [phone] Chintan Figueroa MD Unavailable [phone] Jameel Bloom DPM Unavailable [phone] Gadiel Genao MD Unavailable [phone] Encounter Details Date Type Department Care Team (Late st Contact Info) Description 11/03/2022 11:55 AM CDT Lab [facility] Lab [address] [place] [address] Cognitive decline Social History Tobacco Use Types Packs/Day Years [...] you attend chur ch or quaker services? 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 Author GULSHAN General Goal - Patient schedules and keeps appointments with all recommended providers ACO Care Management On track(2022 11:14 AM SPINDLE FRAME CARVER) Sepideh Guo RN Note: Problem: Potential for [...] Procedure Name Priority Date/Time Associated Diagnosis Comments VITAMIN B12 Routine 11/03/2022 12:10 PM CDT Cognitive decline documented in this encounter Results * Vitamin B12 (11/03/2022 12:10 PM CDT) Vitamin B12 752 230 - 1,250 pg/mL [facility] Comment: Test performed on EDTA plasma as per procedure for alternate specimen. Gold serum tube hemolysis too high per procedure. Testing performed by: [facility], [address] [place] [address], [place]., [address] Blood 11/03/2022 12:1 0 PM CDT 11/03/2022 12:16 PM CDT Bucky Hayes MD LAB BLOOD ORDERABLES Final Result Performing Organization Address City/State/ZIP Co wi Phone Number [facility] [address] [facility] Department [place] [address] documented in this encounter Visit Diagnoses Diagnosis Cognitive decline documented in this encounter Additional Health Concerns Infection Onset Date Last Indicated Resolved Time COVID: Recovered Comment:Added based on recent COVID infection. 08/16/2022 08/17/2022 11/14/2022 3:05 AM C DT documented as of this encounter Care Teams Blood Tester Fowl Relationship Specialty Start Date End Date Christine Herzog MD [address] [place] [address] [address] [place] [address] PCP - General Internal Medicine 12/02/21 Trey Pinedo MD [address] [place] [address] [address] [place] [address] Consulting Physician Neurology 05/09/19 Albert Craft MD [address] [place] [address] [address] [place] [address] Consulting Physician Gastroenterology 03/11/22 Chintan Figueroa MD [address] [place] [address] [address] [place], [place] [address] [address] Consulting Physician Hematology and Oncology 03/11/22 Jameel Bloom DPM [address] [place] [address] Consulting Physician Orthotics 03/11/22 Gadiel Genao MD [address] [place] [address] Surgeon Vascular Surgery 03/11/22 documented as of this encounter
--- OUTSIDE RECORDS SUMMARY | 2024-06-18 18:05 | XMS_ITS | Encounter Summary ---
Author Organization [facility] Healthcare Address [address] [place] [address] Care Team Providers Care Railway Switch Operator Name Role Phone Trey Pinedo MD Unavailable [phone] Christine Herzog MD Primary Care Provide r Albert Craft MD Unavailable [phone] Chintan Figueroa MD Unavailable [phone] Jameel Bloom DPM Unavailable [phone] Gadiel Genao MD Unavailable [phone] Encounter Details Date Type Department Care Team (Late st Contact Info) Description 01/26/2023 1:30 PM CDT Lab [facility] [address] [facility] [address] [place] [address] Polycythemia Social History Tobacco Use Types Packs/Day [...] you attend chur ch or yarsanism services? 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 ENGINEER PRODUCTS Gender Identity Not on file Sexual Orientation Straight 01/23/2021 10 :16 PM CDT documented as of this encounter Last Filed Vital Signs Vital Sign Reading Time Taken Comments Blood Pressure 115/84 01/26/2023 1:11 PM CDT Pulse 73 01/26/2023 1:11 PM CDT Temperature 36.8 ??C (98.2 ??F) 01/26/2023 1:11 PM CD T Respiratory Rate 20 01/26/2023 1:11 PM CDT Oxygen Saturation 98% 01/26/2023 1:11 PM CDT Inhaled Oxygen Concentration - - Weight - - Height 170.2 cm (5' 7 ) 01/26/2023 1:11 PM CDT Body Mass Index - - documented in this encounter Plan of Treatment Not on file documented as of this encounter Goals Goal Patient Goal Type Associated Problems Recent Progress Patient-Stated? Author GULSHAN General Goal - Patient schedules and keeps appointments with all recommended providers ACO Care Management On track(2022 11:14 AM COMPLIANCE ENGINEER PRODUCTS) Sepideh Guo, SUE Note: Problem: Potential for [...] Date/Time Associated Diagnosis Comments DIFFERENTIAL AUTO Routine 01/26/2023 1:0 5 PM CDT Polycythemia CBC WITH AUTO DIFFERENTIAL Routine 01/26/2023 1:05 PM CDT Polycythemia documented in this encounter Results * Differential, auto (01/26/2023 1:05 PM CDT) Neutrophil abs 4.6 1.7 - 6.5 K/cumm [facility] ([facility]) Imm gran abs 0.0 0.0 - 0.1 K/cumm [facility] ([facility]) Lymphocyte abs 1.5 0.8 - 3.3 K/cumm [facility] ([facility]) Monocyte abs 0.8 0.2 - 0.8 K/cumm [facility] ([facility]) Eosinophil abs 0.3 0.0 - 0.5 K/cumm [facility] ([facility]) Basophil abs 0.1 0.0 - 0.1 K/cumm [facility] ([facility]) Neutrophil pct 63.2 % [facility] ([facility] Comment: Interpretive [...] was last revised on 2022. Lymphocyte pct 19.8 % [facility] ([facility]) Comment: Interpretive Data Percent cell count reference ranges are not reported, since discordance with absolute values may lead to misinterpretation of CBC data. Current Interpretive Data was last revised on 2022. Monocyte pct 11.1 % [facility] ([facility] [...] was last revised on 2022. Basophil pct 1.8 % [facility] ([facility]) Comment: Interpretive Data Percent cell count reference ranges are not reported, since discordance with absolute values may lead to misinterpretation of CBC data. Current Interpretive Data was last revised on 2022. Blood 01/26/2023 1:05 PM CDT 01/26/2023 1:08 PM CDT us Monika Castellano FIREWALL SECURITY ENGINEER LAB BLOOD ORDERABLES Final Result [facility] [address] [facility] Department [place] [address] * (ABNORMAL) CBC with auto differential (01/26/2023 1:05 PM CDT) WBC 7.3 3.8 - 9.9 K/cumm [facility] ([facility]) Hgb 14.7 13.0 - 17.5 g/dL [facility] ([facility]) Hct 46.5 38.9 - 50.3 % [facility]) Plt 187 150 - 400 K/cumm [facility] ([facility]) MPV 10.6 9.1 - 12.3 fL [facility] ([facility]) RBC 5.60 4.30 - 5.80 M/cumm [facility] ([facility]) MCV 83.0 81.3 - 96.4 fL [facility] ([facility]) MCH 26.3(L) 27.1 - 33.3 pg [facility] ([facility] MCHC 31.6(L) 32.3 - 35.7 g/dL [facility] ([facility] RDW CV 14.5 11.1 - 14.9 % [facility] RDW SD 43.5 35.7 - 48.1 fL [facility] ([facility]) NRBC abs Not Measured 0.00 - 0.01 K/cumm [facility] ([facility]) Blood 01/26/2023 1:05 PM CDT 01/26/2023 1:08 PM CDT Monika Castellano FIREWALL SECURITY ENGINEER LAB BLOOD ORDERABLES Final Result [facility]) [address] [facility] Department [place] [address] documented in this encounter Visit Diagnoses Diagnosis Polycythemia Polycythemia, secondary documented in this encounter Orders Appointment Requests Count Last Ordered Date Fi rst Ordered Date ONCBCN LAB APPOINTMENT 1 01/26/2023 documented in this encounter Care Teams Railway Switch Operator Relationship Specialty Start Date End Date Christine Herzog MD [address] [facility] [address] [place] [address] PCP - General Internal Medicine 12/02/21 Trey Pinedo MD [address] [facility] [address] [place] [address] Consulting Physician Neurology 05/09/19 Albert Craft MD [address] [facility] [address] [place] [address] Consulting Physician Gastroenterology 03/11/22 Chintan Figueroa MD [address] [facility] [address] [place] [address] Consulting Physician Hematology and Oncology 03/11/22 Jameel Bloom DPM [address] [place] [address] Consulting Physician Orthotics 03/11/22 Gadiel Genao MD [address] [place] [address] Surgeon Vascular Surgery 03/11/22 documented as of this encounter
--- OUTSIDE RECORDS SUMMARY | 2024-06-18 18:05 | XMS_ITS | Encounter Summary ---
Author Organization [facility] Address [address] [facility] [address] [place] [address] Care Team Providers Care Dictaphone Typist Name Role Phone Trey Pinedo MD Unavailable [phone] Christine Herzog MD Primary Care Provide r Albert Craft MD Unavailable [phone] Chintan Figueroa MD Unavailable [phone] Jameel Bloom DPM Unavailable [phone] Gadiel Genao MD Unavailable [phone] Reason for Visit * Reason Comments Hypertension Encounter Details Date Type Department Care Team (Late st Contact Info) Description 11/16/2022 3:00 PM CDT Office Visit [facility] Primary Care at [address] [place] [address] Christine Herzog MD [address] [place] [address] [address] [place] [address] 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); BMI 28.0-28.9,adult; Benign prostatic hyperplasia with lower urinary tract symptoms, symptom details unspecified Social History Tobacco Use Types Packs/Day Years [...] How often do you attend chur or sabianist services? 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 Gender Identity Not on file Sexual Orientation Straight 01/23/2021 10 :16 PM CDT documented as of this encounter Last Filed Vital Signs Vital Sign Reading Time Taken Comments Blood Pressure 118/70 11/16/2022 3:15 PM CDT Pulse 60 11/16/2022 3:15 PM CDT Temperature - - Respiratory Rate 18 11/16/2022 3:15 PM CDT Oxygen Saturation 96% 11/16/2022 3:15 PM CDT Inhaled Oxygen Concentration - - Weight 82.6 kg (182 lb) 11/16/2022 3:15 PM CDT Height 170.2 cm (5' 7 ) 11/16/2022 3:15 PM CDT Body Mass Index 28.51 11/16/2022 3:15 PM CDT documented in this encounter Patient Instructions * Patient Instructions* Christine Herzog MD - 11/16/2022 3:00 PM CDT My medical equipment technician and I are thankful you have [...] Progress Notes * Christine Herzog MD - 11/16/2022 3:00 PM CDT Images from the original note were not included. Subjective/Objective Patient ID: Villa Zuniga is a 77 y.o. male. Chief Complaint Hypertension HPI 77M coming in for follow up on htn and DM. He denies any low numbers or feeling hypoglycemic. He does not need to check his fingersticks Denies chest pain palpitations sob lightheadedness or any other symptoms. He is tolerating his bp med well. His bp at home averages about 120s/80s. Max around 140/90s Review of Systems Constitutional: Negative for chills and fever. Respiratory: Negative for cough and shortness of breath. Cardiovascular: Negative for chest pain. Gastrointestinal: Negative for abdominal pain. Vitals: 11/16/22 1515 BP: 118/70 BP Location: Left arm Patient Position: Sitting Pulse: 60 Resp: 18 SpO2: 96% Weight: 82.6 kg (182 lb) Height: 170.2 cm (5' 7 ) Lab on 11/03/2022 Component Date Value Hgb A1C 11/03/2022 5.9 (H) Estimated Average Glucose 11/03/2022 123 Lab on 11/03/2022 Component Date Value Vitamin B12 11/03/2022 752 Physical Exam Constitutional: General: He is not [...] Diagnoses and all orders for this visit: Type 2 diabetes mellitus with hyperlipidemia (HCC) (Primary) Assessment & Plan: The patient was counseled [...] exercise A1c reviewed F/u in 3 months BMI 28.0-28.9,adult Benign prostatic hyperplasia with lower urinary tract symptoms, symptom details unspecified Assessment & Plan: Elevated psa Repeat psa now, if still elevated will refer to urology Side effects, risks, interactions reviewed with patient. [...] Plan Note - Christine Herzog MD - 11/16/2022 3:39 PM CDT Associated Problem(s): Benign prostatic hyperplasia with lower urinary tract symptoms Elevated psa Repeat psa now, if still elevated will refer to urology * Assessment & Plan Note - Christine Herzog MD - 11/15/2022 9:47 PM CDT Associated Problem(s): Type 2 diabetes [...] exercise A1c reviewed F/u in 3 months * Assessment & Plan Note - Christine Herzog MD - 11/15/2022 9:46 PM CDT Associated Problem(s): Essential hypertension Bp in the office today BP Readings from Last 1 Encounters: 11/03/22 (!) Continue current regimen of metoprolol 50mg daily Recommend DASH diet, heart-healthy lifestyle, exercise. Discussed the risks of hypertension. documented in this encounter Plan of Treatment Not on file documented as of this encounter Goals Goal Patient Goal Type Associated Problems Recent Progress Patient-Stated? Author GULSHAN General Goal - Patient schedules and keeps appointments with all recommended providers ACO Care Management On track(2022 11:14 AM PROVIDER CONTRACTING CONSULTANT) Sepideh Guo RN Note: Problem: Potential for [...] as of this encounter Visit Diagnoses Diagnosis Type 2 diabetes mellitus with hyperlipidemia (HCC)- Primary BMI 28.0-28.9,adult Benign prostatic hyperplasia with lower urinary tract symptoms, symptom details unspecified documented in this encounter Discontinued Medications Medication Sig Discontinue Reason Start Date End Da te metoprolol XL (TOPROL-XL) 25 mg extended release tablet TAKE 1 TABLET BY MOUTH DAILY Alternate therapy 09/12/2022 11/16/2022 documented as of this encounter Care Teams Dictaphone Typist Relationship Specialty Start Date End Date Christine Herzog MD [address] [facility] [address] [place] [address] PCP - General Internal Medicine 12/02/21 Trey Pinedo MD [address] [place] [address] [address] [place] [address] Consulting Physician Neurology 05/09/19 Albert Craft MD [address] [place] [address] [address] [place] [address] Consulting Physician Gastroenterology 03/11/22 Chintan Figueroa MD [address] [place] [address] [address] [place] [address] Consulting Physician Hematology and Oncology 03/11/22 Jameel Bloom DPM [address] [place] [address] Consulting Physician Orthotics 03/11/22 Gadiel Genao MD [address] [place] [address] Surgeon Vascular Surgery 03/11/22 documented as of this encounter
--- OUTSIDE RECORDS SUMMARY | 2024-06-18 18:05 | XMS_ITS | Encounter Summary ---
Author Organization [facility] Address [address] [address] Care Team Providers Care Professor Of Languages Name Role Phone Trey Pinedo MD Unavailable [phone] Christine Herzog MD Primary Care Provide r Albert Craft MD Unavailable [phone] Chintan Figueroa MD Unavailable [phone] Jameel Bloom DPM Unavailable [phone] Gadiel Genao MD Unavailable Encounter Details Date Type Department Care Team (Late st Contact Info) Description 10/10/2022 Telephone [facility] Cardiology [address] [facility] [address] [place] [address] Bijal Galindo MD [address] [place] [address] 3 [place] [address] Social History Tobacco Use Types Packs/Day Years [...] on file 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 MESSENGER COPY Gender Identity Not on file Sexual Orientation Straight 01/23/2021 10 :16 PM CDT documented as of this encounter Ordered Prescriptions Prescription Sig Dispense Quantity Refills Last Filled Start Date End Date lisinopriL (PRINIVIL,ZESTRIL) 20 mg tablet Take 1 tablet (20 mg total) by mouth daily 90 tablet 1 10/10/2022 02/06/2023 apixaban (ELIQUIS) 5 mg tabletIndications: atrial fibrillation Take 1 tablet (5 mg total) by mouth 2 (two) times a day 180 tablet 1 10/10/2022 03/13/2023 amLODIPine (NORVASC) 2.5 mg tablet Take 1 tablet (2.5 mg total) by mouth daily 45 tablet 1 10/10/2022 12/19/2022 magnesium oxide (MAG-OX) 400 mg (241.3 mg elemental magnesium) tabletIndications: hypomagnesemia Take 1 tablet (400 mg total) by mouth 2 (two) times a day 180 tablet 1 10/10/2022 12/28/2022 documented in this encounter Miscellaneous Notes * Telephone Encounter - Martina Ennis MA - 10/10/2022 10:13 AM CDT Rx sent to patient designated pharmacy. * Telephone Encounter - Martina Ennis MA - 10/10/2022 10:06 AM CDT ----- Message from Villa Zuniga sent at 10/09/2022 1:24 PM CDT ----- Regarding: Refills Contact: Dr Galindo, Can you send 90 day refills to [facility] for the following: Lisinopril 20mg Eliquis 5mg Amlodipine 2.5mg Mag-oxide 400mg Thanks documented in this encounter Plan of Treatment Not on file documented as of this encounter Goals Goal Patient Goal Type Associated Problems Recent Progress Patient-Stated? Author GULSHAN General Goal - Patient schedules and keeps appointments with all recommended providers ACO Care Management On track(2022 11:14 AM MESSENGER COPY) Sepideh Guo RN Note: Problem: Potential for [...] Reason Start Date End Da te apixaban (ELIQUIS) 5 mg tabletIndications:atrial fibrillation Take 1 tablet (5 mg total) by mouth 2 (two) times a day Reorder 08/11/2022 10/10/2022 lisinopriL (PRINIVIL,ZESTRIL) 20 mg tablet Take 1 tablet (20 mg total) by mouth daily Reorder 08/11/2022 10/10/2022 amLODIPine (NORVASC) 2.5 mg tablet Take 1 tablet (2.5 mg total) by mouth daily Reorder 08/12/2022 10/10/2022 magnesium oxide (MAG-OX) 400 mg (241.3 mg elemental magnesium) tabletIndications:hypomag nesemia Take 1 tablet (400 mg total) by mouth 2 (two) times a day Reorder 09/13/2022 10/10/2022 documented as of this encounter Additional Health Concerns Infection Onset Date Last Indicated Resolved Time COVID: Recovered Comment:Added based on recent COVID infection. 08/16/2022 08/17/2022 11/14/2022 3:05 AM C DT documented as of this encounter Care Teams Professor Of Languages Relationship Specialty Start Date End Date Christine Herzog MD [address] [facility] [address] [place] [address] PCP - General Internal Medicine 12/02/21 Trey Pinedo MD [address] [place] [address] [address] [place] [address] Consulting Physician Neurology 05/09/19 Albert Craft MD [address] [facility] [address] [place] [address] Consulting Physician Gastroenterology 03/11/22 Chintan Figueroa MD [address] [facility] [address] [place] [address] Consulting Physician Hematology and Oncology 03/11/22 Jameel Bloom DPM [address] [place] [address] Consulting Physician Orthotics 03/11/22 Gadiel Genao MD [address] [place] [address] Surgeon Vascular Surgery 03/11/22 documented as of this encounter
--- OUTSIDE RECORDS SUMMARY | 2024-06-18 18:05 | XMS_ITS | Encounter Summary ---
Author Organization [facility] Address [address] [place] [address] Phone Care Team Providers Care Business Administration Teacher Name Role Phone Trey Pinedo MD Unavailable [phone] Christine Herzog MD Primary Care Provide r Albert Craft MD Unavailable [phone] Chintan Figueroa MD Unavailable [phone] Jameel Bloom DPM Unavailable [phone] Gadiel Genao MD Unavailable [phone] Reason for Visit * Auth/Cert Specialty Diagnoses / Procedures Referred By Contac t Referred To Contact Referral ID Status Reason Start Date Expiration Date Visits Re quested Visits Authorized [id number] 1 1 Encounter Details Date Type Department Care Team (Late st Contact Info) Description 09/26/2022 11:30 AM CDT Home Care Visit [facility] [address] [address] [address] [place] [address] Radha Martinez, PT PT OASIS DISCHARGE Social History Tobacco Use Types Packs/Day Years [...] you attend chur ch or lutheran services? Never 08/12/2022 Do you belong to [...] slept in a mcc (including now)? No 08/12/2022 Personal Safety Answer Date Recorded Have you ever been in or are you currently in a harmful physical or emotional relationship or is someone making you feel afraid or unsafe? Denies 09/25/2022 Sex and Gender Information Value Date Recorded Sex Assigned at Not on file 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 RESOURCE CONSERVATION SPECIALIST Gender Identity Not on file Sexual Orientation Straight 01/23/2021 10 :16 PM CDT documented as of this encounter Last Filed Vital Signs Vital Sign Reading Time Taken Comments Blood Pressure 138/72 09/26/2022 11:37 AM CDT Pulse 86 09/26/2022 11:37 AM CDT Temperature 36.2 ??C (97.1 ??F) 09/26/2022 11:37 AM C DT Respiratory Rate 18 09/26/2022 11:37 AM CDT Oxygen Saturation 98% 09/26/2022 11:37 AM CDT Inhaled Oxygen Concentration - - Weight - - Height - - Body Mass Index - - documented in this encounter Miscellaneous Notes * Home Health Visit Narrative - Radha Martinez, PT - 09/26/2022 11:17 AM CDT DC pt from [facility] services as pt has returned to new baseline. 24 hour care will be recommended for ptdue to varying levels of cognitive impairments/memory. Due to the same impairments, pt will continue to be a high fall risk and will require assist for compliance with HEP and use of a WW. Not recommending QC due to falls/cognitive impairments. As a result of new recommendations, pt did not meet goals as they were set for QC. Pt/family to move to new home early October; pt may benefit from additionalhome care at that time to ensure pt can adapt to new home. Called [employer] and provided pt's son with #sfor community care and [facility]. Plan to text him numbers for: day program info and memory care solutionsonce info received by [employer]. 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 documented in this encounter Plan of Treatment Not on file documented as of this encounter Goals Goal Patient Goal Type Associated Problems Recent Progress Patient-Stated? Author GULSHAN General Goal - Patient schedules and keeps appointments with all recommended providers ACO Care Management On track(2022 11:14 AM RESOURCE CONSERVATION SPECIALIST) Sepideh Guo, RN Note: Problem: Potential [...] Care Plan Visit Details Visit Type -PT OASIS Dischar ge Discipline -Physical Therapy Problems Problem Description Start Date Status Goals Interventions Homebound Status Disciplines: Skilled Disciplines Patient's homebound status 08/13/2022 Resolved on 09/26/2022 1 goal linked to scheduled/documen kamala intervention 1 goal intervention scheduled/documen kamala in this visit Monitor patient's vital signs every home health visit Disciplines: SN, PT, OT, CALL OR CONTACT CENTRE MANAGER, TUBE CUTTER OPERATOR, Skilled Disciplines Monitor patient's vital signs every home health visit. 08/13/2022 Resolved on 09/26/2022 1 goal linked to scheduled/documen kamala intervention 1 goal intervention scheduled/documen kamala in this visit Multidisciplinar y Case Conference Disciplines: Skilled Disciplines Concurrently discusses plan of treatment and coordinate patient centered care 08/13/2022 Resolved on 09/26/2022 1 goal linked to scheduled/documen kamala intervention Safety concerns Disciplines: Skilled Disciplines Alteration in safety 08/13/2022 Resolved on 09/26/2022 1 goal linked to scheduled/documen kamala intervention 2 goal interventions scheduled/documen kamala in this visit Pain Disciplines: Core Disciplines Alteration in comfort 08/13/2022 Resolved on 09/26/2022 1 goal linked to scheduled/documen kamala intervention 1 goal intervention scheduled/documen kamala in this visit PT Impaired Functional Mobility/Balance Disciplines: Physical Therapy Impaired functional mobility/balance 08/17/2022 Resolved on 09/26/2022 4 goals linked to scheduled/documen kamala interventions 4 problem interventions scheduled/documen kamala in this visit Goals Goal Associated Problem Outcome Goal Met? Visit Notes Patient receives care at the most appropriate care setting Description: Patient receives care at the most appropriate care setting. Homebound Status Completed Yes Measure vital signs during every home health visit during episode of care Description: Home salesperson men's hats to measure vital signs during every home health visit during episode of care. Monitor patient's vital signs every home health visit Completed Yes Care team will coordinate care Description: Care team will coordinate care centered on patient needs throughout the episode of care. Multidisciplinary Case Conference Completed Yes Demonstrate use of safety precautions Description: Patient/caregiver maintains safe home environment as evidenced by remaining free from injury and demonstrates use of safety precautions. Safety concerns Completed Yes Report that pain has been reduced or controlled Description: Patient/caregiver/famil y will verbalize satisfaction with the patients level of pain and symptom control. Pain Completed Yes Improvement with Transfers Description: Patient able to perform all necessary transfers in home safely with or without device with (I) by 10/01/22 PT Impaired Functional Mobility/Balance Adequate for Discharge No Improvement in Gait/Stair Training Description: Patient will ambulate 150 feet in home using SBQC with Mod (I) by 10/01/22 Patient will negotiate 2-3 steps using SBQC with SBA of caregiver out of home to access transportation/communit y activities by 10/01/22 PT Impaired Functional Mobility/Balance Adequate for Discharge No Improvement with balance Description: Improve SHARAN/Tinetti score to 19/28 by 10/01/22 Improve TUG to 30 seconds or less by 10/01/22 PT Impaired Functional Mobility/Balance Adequate for Discharge No Performance with HEP Description: Patient/caregiver to be independent with progressed HEP by therapy discharge. PT Impaired Functional Mobility/Balance Adequate for Discharge No Interventions Intervention Associated Problem/Goal Status Variance Visit Notes Homebound Status Description: Patient is homebound due to medical condition as evidenced by Requires assistance of another to leave home safely Problem:Homebound Status Goal:Patient receives care at the most appropriate care setting Completed Patient is homebound due to fall risk, hx of falls, impaired cognitition requiring 24 hour care, steps to enter/exit home, requires walker and assist. Monitor Vital Signs Description: Monitor blood pressure, pulse, oxygen saturation, respirations Problem:Monitor patient's vital signs every home health visit Goal:Measure vital signs during every home health visit during episode of care Completed Instruct Fall Prevention Description: Instruct patient/caregiver in methods to prevent falls Problem:Safety concerns Goal:Demonstrate use of safety precautions Completed Assess safety Description: Assess patient safety Problem:Safety concerns Goal:Demonstrate use of safety precautions Scheduled Instruct on pain management techniques Description: Instruct in pharmacologic and nonpharmacologic pain management techniques. Problem:Pain Goal:Report that pain has been reduced or controlled Completed Transfer training Description: Instruct patient/caregiver and perform transfer training. Problem:PT Impaired Functional Mobility/Balance Completed Home Exercise Program (HEP) Description: Instruct patient/caregiver and perform HEP. Problem:PT Impaired Functional Mobility/Balance Completed Gait/Stair Training Description: Instruct patient/caregiver and perform gait/stair training. Problem:PT Impaired Functional Mobility/Balance Completed Therapeutic Exercise Description: Perform therapeutic exercise, progressing as tolerated. Problem:PT Impaired Functional Mobility/Balance Completed documented in this encounter Care Teams Business Administration Teacher Relationship Specialty Start Date End Date Christine Herzog MD [address] [place] [address] PCP - General Internal Medicine 12/02/21 Trey Pinedo MD [address] [place] [address] Consulting Physician Neurology 05/09/19 Albert Craft MD [address] [place] [address] [address] [place] [address] Consulting Physician Gastroenterology 03/11/22 Chintan Figueroa MD [address] [place] [address] [address] [place] [address] Consulting Physician Hematology and Oncology 03/11/22 Jameel Bloom DPM [address] [place] [address] Consulting Physician Orthotics 03/11/22 Gadiel Genao MD [address] [place] [address] Surgeon Vascular Surgery 03/11/22 documented as of this encounter
--- OUTSIDE RECORDS SUMMARY | 2024-06-18 18:05 | XMS_ITS | Encounter Summary ---
Author Organization [facility] Healthcare Address [address] [place] [address] Care Team Providers Care Embossing Unit Operator Name Role Phone Trey Pinedo MD Unavailable [phone] Christine Herzog MD Primary Care Provide r Albert Craft MD Unavailable [phone] Chintan Figueroa MD Unavailable [phone] Jameel Bloom DPM Unavailable [phone] Gadiel Genao MD Unavailable [phone] Reason for Visit * Reason Comments OP Infusion Here for a phlebotom y. Hematocrit 46.6. Encounter Details Date Type Department Care Team (Late st Contact Info) Description 11/18/2022 2:00 PM CDT Infusion [facility] [address] [facility] [address] [place] [id number] Polycythemia (Primary Dx) Social History Tobacco Use [...] often do you attend chur ch or protestant services? Patient declined 09/28/2022 Do you belong to any clubs o r organizations such as buddhist groups, unions, fraternal or athletic groups, or [...] on file 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 SKIP TENDER Gender Identity Not on file Sexual Orientation Straight 01/23/2021 10 :16 PM CDT documented as of this encounter Nursing Notes * Araseli Orellana RN - 11/18/2022 2:00 PM CDT This pleasant alert elderly man is here in the ambulatory mode with the assistance of a wheeled walker for phlebotomy. He was seen in follow up by Nurse Practitioner, Monika Castellano. His lab test results reviewed. His Hematocrit was 46.0 today. He seated himself in a chair. But was assisted to a reclined position. Assessment completed. Phlebotomy started at 14:00 via a #20 G intima to left forearm. A brisk blood return was received initially and 15 ml of whole blood was removed with a syringe.After that, no more blood was obtained from site. A new site per right medial forearm with a #20 G intima. A brisk blood return was received, and phlebotomy was completed at 14:35. A total of 500 ml of whole blood was removed and discarded. Patient rested in the recliner chair for approximately 15 minuets. He was offered something to drink, but declined. His blood pressure was taken at 14:55 and 142/67 was received. Patient was assisted with position change, he stood up with the assistance of his walker. After standing up, her told this nurse he felt okay , and was given a copy of his AVS, and left the Infusion Center with the assistance of his walker, in stable condition. documented in this encounter Plan of Treatment Not on file documented as of this encounter Goals Goal Patient Goal Type Associated Problems Recent Progress Patient-Stated? Author GULSHAN General Goal - Patient schedules and keeps appointments with all recommended providers ACO Care Management On track(2022 11:14 AM SKIP TENDER) Sepideh Guo, SUE Note: Problem: Potential for [...] Orde red Date ONCBCN THERAPEUTIC PHLEBOTOMY 1 11/18/2022 documented in this encounter Care Teams Embossing Unit Operator Relationship Specialty Start Date End Date Christine Herzog MD [address] [facility] [address] [address] [place] [address] PCP - General Internal Medicine 12/02/21 Trey Pinedo MD [address] [facility] [address] [address] [place] [address] Consulting Physician Neurology 05/09/19 Albert Craft MD [address] [facility] [address] [facility] [address] [place] [address] Consulting Physician Gastroenterology 03/11/22 Chintan Figueroa MD [address] [facility] [address] [address] Consulting Physician Hematology and Oncology 03/11/22 Jameel Bloom DPM [address] [place] [address] Consulting Physician Orthotics 03/11/22 Gadiel Genao MD [address] [place] [address] Surgeon Vascular Surgery 03/11/22 documented as of this encounter
--- OUTSIDE RECORDS SUMMARY | 2024-06-18 18:05 | XMS_ITS | Encounter Summary ---
Author Organization [facility] Address [address] [place] [address] Care Team Providers Care Business Applications Developer Name Role Phone Trey Pinedo MD Unavailable [phone] Christine Herzog MD Primary Care Provide r Albert Craft MD Unavailable [phone] Chintan Figueroa MD Unavailable [phone] Jameel Bloom DPM Unavailable [phone] Gadiel Genao MD Unavailable Encounter Details Date Type Department Care Team (Late st Contact Info) Description 09/22/2022 Orders Only [facility] Primary Care at [address] [place] [id number] Anastasia Ervin, CIVIL LABORATORY TECHNICIAN [address] [place] [address] Fall, subsequent encounter (Primary Dx); Hematoma Social History Tobacco Use Types Packs/Day [...] you attend chur ch or holiness services? Never 08/12/2022 Do you belong to any clubs o r organizations such as baptist groups, unions, fraternal or athletic groups, or [...] health care facility (including now)? No 08/12/2022 Personal Safety Answer Date Recorded Have you ever been in or are you currently in a harmful physical or emotional relationship or is someone making you feel afraid or unsafe? Denies 09/25/2022 Sex and Gender Information Value Date Recorded Sex Assigned at Not on file 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 CONTACT LENS INSPECTOR Gender Identity Not on file Sexual Orientation Straight 01/23/2021 10 :16 PM CDT documented as of this encounter Plan of Treatment Not on file documented as of this encounter Goals Goal Patient Goal Type Associated Problems Recent Progress Patient-Stated? Author GULSHAN General Goal - Patient schedules and keeps appointments with all recommended providers ACO Care Management On track(2022 11:14 AM CONTACT LENS INSPECTOR) No Sepideh Hi RN Note: Problem: Potential [...] as of this encounter Visit Diagnoses Diagnosis Fall, subsequent encounter- Primary Hematoma Contusion of unspecified site documented in this encounter Additional Health Concerns Infection Onset Date Last Indicated Resolved Time COVID: Recovered Comment:Added based on recent COVID infection. 08/16/2022 08/17/2022 11/14/2022 3:05 AM C DT documented as of this encounter Care Teams Business Applications Developer Relationship Specialty Start Date End Date Christine Herzog MD [address] [facility] [address] [place] [address] PCP - General Internal Medicine 12/02/21 Trey Pinedo MD [address] [place] [address] [address] [place] [address] Consulting Physician Neurology 05/09/19 Albert Craft MD [address] [place] [address] [address] [place] [address] Consulting Physician Gastroenterology 03/11/22 Chintan Figueroa MD [address] [place] [address] [address] [place] [address] Consulting Physician Hematology and Oncology 03/11/22 Jameel Bloom DPM [address] [place] [address] Consulting Physician Orthotics 03/11/22 Gadiel Genao MD [address] [place] [address] Surgeon Vascular Surgery 03/11/22 documented as of this encounter
--- OUTSIDE RECORDS SUMMARY | 2024-06-18 18:06 | XMS_ITS | Encounter Summary ---
Author Organization [facility] Home Care Servic es Address [address] [place] [address] Phone Care Team Providers Care Elevator Starter Name Role Phone Trey Pinedo MD Unavailable [phone] Christine Herzog MD Primary Care Provide r Albert Craft MD Unavailable [phone] Chintan Figueroa MD Unavailable [phone] Jameel Bloom DPM Unavailable [phone] Gadiel Genao MD Unavailable [phone] Sepideh Hi RN Unavailable [phone] Reason for Visit * Auth/Cert Specialty Diagnoses / Procedures Referred By Contac t Referred To Contact Referral ID Status Reason Start Date Expiration Date Visits Re quested Visits Authorized [id number] 1 1 Encounter Details Date Type Department Care Team (Latest Contact Info) Description 09/01/2022 8:00 AM FLEXOGRAPHIC PRESS PLATE SETTER Home Care Visit [facility] [address] [address] [address] [place] [address] Mary Santana, SUE SN DISCIPLINE DISCHARGE Social History Tobacco Use Types Packs/Day Years Used Date Smoking Tobacco: Former Cigarettes 0.5 50 1 959 - 2009 Smokeless Tobacco: Never Alcohol Use Standard Drinks/Week Comments No 0 [...] you attend chur ch or rastafarian services? Never 08/12/2022 Do you belong to [...] in a skilled nursing (including now)? 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 FLEXOGRAPHIC PRESS PLATE SETTER Gender Identity Not on file Sexual Orientation Straight 01/23/2021 10 :16 PM CDT documented as of this encounter Last Filed Vital Signs Vital Sign Reading Time Taken Comments Blood Pressure 150/88 09/01/2022 8:20 AM FLEXOGRAPHIC PRESS PLATE SETTER Pulse 64 09/01/2022 8:20 AM FLEXOGRAPHIC PRESS PLATE SETTER Temperature 36.4 ??C (97.5 ??F) 09/01/2022 8:20 AM CS T Respiratory Rate 18 09/01/2022 8:20 AM FLEXOGRAPHIC PRESS PLATE SETTER Oxygen Saturation 95% 09/01/2022 8:20 AM FLEXOGRAPHIC PRESS PLATE SETTER Inhaled Oxygen Concentration - - Weight - - Height - - Body Mass Index - - documented in this encounter Plan of Treatment Not on file documented as of this encounter Goals Goal Patient Goal Type Associated Problems Recent Progress Patient-Stated? Author GULSHAN General Goal - Patient schedules and keeps appointments with all recommended providers ACO Care Management On track(2022 11:14 AM FLEXOGRAPHIC PRESS PLATE SETTER) No Sepideh Hi RN Note: Problem: Potential [...] - Care Plan Visit Details Visit Type -SN Discipline Di scharge Discipline -Fdc Problems Problem Description Start Date Status Goals Interve ntions Homebound Status Disciplines: Skilled Disciplines Patient's homebound status 08/13/2022 Active 1 goal linked to scheduled/docume nted intervention 1 goal intervention scheduled/documen kamala in this visit Medications Disciplines: Fdc Management of home medications 08/13/2022 Resolved on 09/01/2022 1 goal linked to scheduled/docume nted intervention 4 goal interventions scheduled/documen kamala in this visit Monitor patient's vital signs every home health visit Disciplines: SN, PT, OT, OIL HEATERMAN, VP PRODUCT MANAGEMENT, Skilled Disciplines Monitor patient's vital signs every home health visit. 08/13/2022 Active 1 goal linked to scheduled/docume nted intervention 1 goal intervention scheduled/documen kamala in this visit Multidisciplinar y Case Conference Disciplines: Skilled Disciplines Concurrently discusses plan of treatment and coordinate patient centered care 08/13/2022 Active 1 goal linked to scheduled/docume nted intervention Infection Prevention Disciplines: Skilled Disciplines Infection Prevention 08/13/2022 Resolved on 09/01/2022 1 goal linked to scheduled/docume nted intervention 1 goal intervention scheduled/documen kamala in this visit Safety concerns Disciplines: Skilled Disciplines Alteration in safety 08/13/2022 Active 1 goal linked to scheduled/docume nted intervention 2 goal interventions scheduled/documen kamala in this visit Knowledge Deficit - Other Disease Process and Management Disciplines: Skilled Disciplines Other disease process and management not already specified 08/13/2022 Active 1 goal linked to scheduled/docume nted intervention 1 goal intervention scheduled/documen kamala in this visit Pain Disciplines: Core Disciplines Alteration in comfort 08/13/2022 Active 1 goal linked to scheduled/docume nted intervention 1 goal intervention scheduled/documen kamala in this visit Goals Goal Associated Problem Outcome Goal Met? Visit Notes Patient receives care at the most appropriate care setting Description: Patient receives care at the most appropriate care setting. Homebound Status Progressing No Understand and follow medication therapy Description: Patient/caregiver will understand and follow prescribed medication therapy as evidence by having up to date medication list in home & ability to verbalize purpose, schedule, and side effects by the end of the episode of care Medications Completed Yes Measure vital signs during every home health visit during episode of care Description: Home hot wort settler to measure vital signs during every home health visit during episode of care. Monitor patient's vital signs every home health visit Progressing No Care team will coordinate care Description: Care team will coordinate care centered on patient needs throughout the episode of care. Multidisciplinary Case Conference Progressing No Verbalize signs of infection Description: Patient/caregiver will demonstrate knowledge of infection prevention strategies by verbalizing signs and symptoms of infection. Infection Prevention Completed Yes Demonstrate use of safety precautions Description: Patient/caregiver maintains safe home environment as evidenced by remaining free from injury and demonstrates use of safety precautions. Safety concerns Progressing No Understanding of disease process Description: Patient/caregiver will demonstrate understanding of disease process by verbalizing signs and symptoms, preventative measures, and when to report to home care agency or provider. Knowledge Deficit - Other Disease Process and Management Completed Yes Report that pain has been reduced or controlled Description: Patient/caregiver/family will verbalize satisfaction with the patients level of pain and symptom control. Pain Progressing No Interventions Intervention Associated Problem/Goal Status Variance Visit Notes Homebound Status Description: Patient is homebound due to medical condition as evidenced by Requires assistance of another to leave home safely Problem:Homebound Status Goal:Patient receives care at the most appropriate care setting Completed Patient is homebound due to medical condition as evidenced by Requires assistance of another to leave home safely Instruct on drug interactions Description: Perform drug interaction screening and instruct patient on severe drug interactions. Notify MD of any severe interactions Problem:Medications Goal:Understand and follow medication therapy Completed No severe drug interactions noted Instruct on high risk medications Description: Instruct patient/caregiver on high-risk/high-alert medications, including: anti-convulsant, anti-retroviral, anti-coagulant, chemotherapeutic, hypo-glycemic, immunosuppressant, insulin, and opioid. Problem:Medications Goal:Understand and follow medication therapy Completed Reviewed bleeding / bruising concerns with nirali Instruct on medication side effects Description: Instruct patient/caregiver to monitor for side effects and adverse reactions Problem:Medications Goal:Understand and follow medication therapy Completed Monitor effectiveness of drug therapy Description: Monitor effectiveness of patient's drug therapy Problem:Medications Goal:Understand and follow medication therapy Completed Monitor Vital Signs Description: Monitor blood pressure, pulse, oxygen saturation, respirations Problem:Monitor patient's vital signs every home health visit Goal:Measure vital signs during every home health visit during episode of care Completed Aspects of Care Description: Instruct patient/caregiver on universal precautions and home infection control measures Problem:Infection Prevention Goal:Verbalize signs of infection Completed Instruct Fall Prevention Description: Instruct patient/caregiver in methods to prevent falls Problem:Safety concerns Goal:Demonstrate use of safety precautions Completed Assess safety Description: Assess patient safety Problem:Safety concerns Goal:Demonstrate use of safety precautions Completed Instruct on Disease Process Description: Instruct patient/caregiver on disease process and management Bradycardia, hospital-acquired pneumonia Problem:Knowledge Deficit - Other Disease Process and Management Goal:Understanding of disease process Completed Instruct on pain management techniques Description: Instruct in pharmacologic and nonpharmacologic pain management techniques. Problem:Pain Goal:Report that pain has been reduced or controlled Completed Denies pain issues at todays visit documented in this encounter Care Teams Elevator Starter Relationship Specialty Start Date End Date Christine Herzog MD [address] [place] [address] [address] [place] [address] PCP - General Internal Medicine 12/02/21 Trey Pinedo MD [address] [place] [address] [address] [place] [address] Consulting Physician Neurology 05/09/19 Albert Craft MD [address] [place] [address] [address] [place] [address] Consulting Physician Gastroenterology 03/11/22 Chintan Figueroa MD [address] [place] [address] [address] [place] [address] Consulting Physician Hematology and Oncology 03/11/22 Jameel Bloom DPM [address] [place] [address] Consulting Physician Orthotics 03/11/22 Gadiel Genao MD [address] [place] [address] Surgeon Vascular Surgery 03/11/22 Sepideh Hi RN [address] [place] [address] [address] [place] [address] Service Establishment Attendant 08/12/22 09/01/22 documented as of this encounter
--- OUTSIDE RECORDS SUMMARY | 2024-06-18 18:06 | XMS_ITS | Encounter Summary ---
Author Organization [facility] Home Care Servic es Address [address] [place] [address] Phone Care Team Providers Care Batch Plant Operator Name Role Phone Trey Pinedo MD Unavailable [phone] Christine Herzog MD Primary Care Provide r Albert Craft MD Unavailable [phone] Chintan Figueroa MD Unavailable [phone] Jameel Bloom DPM Unavailable [phone] Gadiel Genao MD Unavailable [phone] Sepideh Hi RN Unavailable [phone] Reason for Visit * Reason Comments Weakness - Generalized * Auth/Cert Specialty Diagnoses / Procedures Referred By Contac t Referred To Contact Referral ID Status Reason Start Date Expiration Date Visits Re quested Visits Authorized [id number] 1 1 Encounter Details Date Type Department Care Team (Late st Contact Info) Description 08/26/2022 9:00 AM BATCH TRUCKER Home Care Visit [facility] Home Health - [address] [place] [address] Marianne Zhang, SAUL PT HOME VISIT Social History Tobacco Use [...] often do you attend chur ch or pentecostal services? Never 08/12/2022 Do you belong to [...] slept in a halfway (including now)? 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 BATCH TRUCKER Gender Identity Not on file Sexual Orientation Straight 01/23/2021 10 :16 PM CDT documented as of this encounter Last Filed Vital Signs Vital Sign Reading Time Taken Comments Blood Pressure 128/80 08/26/2022 9:36 AM BATCH TRUCKER Pulse 60 08/26/2022 9:36 AM BATCH TRUCKER Temperature 35.9 ??C (96.7 ??F) 08/26/2022 9:36 AM CS T Respiratory Rate 18 08/26/2022 9:36 AM BATCH TRUCKER Oxygen Saturation 99% 08/26/2022 9:36 AM BATCH TRUCKER Inhaled Oxygen Concentration - - Weight - - Height - - Body Mass Index - - documented in this encounter Miscellaneous Notes * Home Health Plan for Next Visit - Marianne Zhang PTA - 08/26/2022 9:47 AM CST pt denies any falls or pain is using SBQC but do recommend that he cont with the wheeled walker pt is unsteady with cane also with sit to from stand recommend pt reach back to sit down slowly not to drop upper back wound is healed and lower is healing scab in place pt and son are agreeable with poc H TRUCKER documented in this encounter Plan of Treatment Not on file documented as of this encounter Goals Goal Patient Goal Type Associated Problems Recent Progress Patient-Stated? Author GULSHAN General Goal - Patient schedules and keeps appointments with all recommended providers ACO Care Management On track(2022 11:14 AM BATCH TRUCKER) Sepideh Guo RN Note: Problem: Potential for [...] home health visit Disciplines: SN, PT, OT, GROUND EQUIPMENT MECHANIC, BULL RIVETER, Skilled Disciplines Monitor patient's vital signs every [...] specified 08/13/2022 Active 1 goal linked to scheduled/documen kamala intervention 1 goal intervention scheduled/documen kamala in this visit Pain Disciplines: Core Disciplines Alteration in comfort 08/13/2022 Active 1 goal linked to scheduled/documen kamala intervention 1 goal intervention scheduled/documen kamala in this visit PT Impaired Functional Mobility/Balance Disciplines: Physical Therapy Impaired functional mobility/balance 08/17/2022 Active - 5 problem interventions scheduled/documen kamala in this visit Goals Goal Associated Problem Outcome Goal Met? Visit Notes Patient receives care at the most appropriate care setting Description: Patient receives care at the most appropriate care setting. Homebound Status No Measure vital signs during every home health visit during episode of care Description: Home arnp to measure vital signs during every home health visit during episode of care. Monitor patient's vital signs every home health visit No Demonstrate use of safety precautions Description: Patient/caregiver maintains safe home environment as evidenced by remaining free from injury and demonstrates use of safety precautions. Safety concerns No Understanding of disease process Description: Patient/caregiver will demonstrate understanding of disease process by verbalizing signs and symptoms, preventative measures, and when to report to home care agency or provider. Knowledge Deficit - Other Disease Process and Management No Report that pain has been reduced [...] assistance of another to leave home safely Monitor Vital Signs Description: Monitor blood pressure, pulse, oxygen saturation, respirations Problem:Monitor patient's vital signs every home health visit Goal:Measure vital signs during every home health visit during episode of care Completed Instruct Fall Prevention Description: Instruct patient/caregiver in methods to prevent falls Problem:Safety concerns Goal:Demonstrate use of safety precautions Completed instructed to use the walker vs the cane at this time Assess safety Description: Assess patient safety Problem:Safety concerns Goal:Demonstrate use of safety precautions Completed Instruct on Disease Process Description: Instruct patient/caregiver on disease process and management Bradycardia, hospital-acquired pneumonia Problem:Knowledge Deficit - Other Disease Process and Management Goal:Understanding of disease process Scheduled Instruct on pain management techniques Description: Instruct in pharmacologic and nonpharmacologic pain management techniques. Problem:Pain Goal:Report that pain has been reduced or controlled Completed pt has pain meds if needed Transfer training Description: Instruct patient/caregiver and perform transfer training. Problem:PT Impaired Functional Mobility/Balance Completed sit to from stand from recliner with cues to scoot forward and then push up with arms also when sitting to reach back and sit slowly with cues able to complete with recliner but sit to from stand from dining room chair mod difficulty due to no arms using table to push up on right and chair on the left hand pt does have problems reaching back from this chair and sitting slowly Home Exercise Program (HEP) Description: Instruct patient/caregiver and perform HEP. Problem:PT Impaired Functional Mobility/Balance Completed while seated performed 15 reps of heel toe raises, hip abd/add, laqs holding 3 seconds, hip flexion with knee flexion and glut sets pt completes with cues while standing instructed on heel toe raises, hip abd/add, hamstring curls and hip flexion with knee flexion with karen ue support on counter cues to complete correctly pt has written hep however does need assist to complete Gait/Stair Training Description: Instruct patient/caregiver and perform gait/stair training. Problem:PT Impaired Functional Mobility/Balance Completed gait with SBQC and CGA to min asst over level surfaces with constant cues on sequencing and placement of cane pt has tendency to place only back legs of cane on the floor and placing too far in front and out to side then cues for the left leg to follow cane decreased movement at neck right to left and flexion at neck some sob noted gait with wheeled walker with less cues do recommend cont use of wheeled walker at all time Balance Training/Activities Description: Instruct patient/caregiver and perform balance training activities. Problem:PT Impaired Functional Mobility/Balance Completed standing balance today for 2 minutes arms down to side and slight lob x 1 narrow base of support while the pt was standing staggered 30 seconds each leg pt does sway but no lob cues to improve posture also working on reaching out to each side x 5 reps with cues on weightshifting decreased cervical rotation to the left when reaching to the left then reaching forward x 5 reps with no lob gait balance 4-/5 with walker and 3+/5 with SBQC Therapeutic Exercise Description: Perform therapeutic exercise, progressing as tolerated. Problem:PT Impaired Functional Mobility/Balance Completed see HEP comments documented in this encounter Care Teams Batch Plant Operator Relationship Specialty Start Date End Date Christine Herzog MD [address] [facility] [address] [place] [address] PCP - General Internal Medicine 12/02/21 Trey Pinedo MD [address] [facility] [address] [place] [address] Consulting Physician Neurology 05/09/19 Albert Craft MD [address] [facility] [place] [address] Consulting Physician Gastroenterology 03/11/22 Chintan Figueroa MD [address] [place] [address] [address] [place] [address] Consulting Physician Hematology and Oncology 03/11/22 Jameel Bloom DPM [address] [place] [address] Consulting Physician Orthotics 03/11/22 Gadiel Genao MD [address] [place] [address] Surgeon Vascular Surgery 03/11/22 Sepideh Hi RN [address] [place] [address] [address] [place] [address] Chiropractic Assistant 08/12/22 09/01/22 documented as of this encounter
--- OUTSIDE RECORDS SUMMARY | 2024-06-18 18:06 | XMS_ITS | Encounter Summary ---
Author Organization [facility] [employer] [facility] Address [address] [place] [address] Phone Care Team Providers Care Senior Auditor Name Role Phone Trey Pinedo MD Unavailable [phone] Christine Herzog MD Primary Care Provide r Albert Craft MD Unavailable [phone] Chintan Figueroa MD Unavailable [phone] Jameel Bloom DPM Unavailable [phone] Gadiel Genao MD Unavailable [phone] Lexii Arnold MA Unavailable [phone] Walker Carvajal LCSW Unavailable Unavailabl e Reason for Visit * Consultation (Routine) - Closed Specialty Diagnoses / Procedures Referred By Contac t Referred To Contact Neurology Diagnoses Cognitive decline Christine Herzog MD [address] [place] [address] [place] [address] Phone: tel: fax: [facility] [address] [place] [address] 6th [place] [address] [place] [address] Phone: tel: fax:[phone] Referral ID Status Reason Start Date Expiration Date V isits Requested Visits Authorized [id number] Closed Specialty Services Required 04/20/2022 05/20/2023 12 12 Encounter Details Date Type Department Care Team (Late st Contact Info) Description 09/19/2022 10:00 AM CDT Office Visit [facility] [address] 6th [place] [address] [place] [address] Bucky Hayes MD [address] [place] [address] (Fax) Cognitive decline (Primary Dx); History of stroke; Lewy body dementia, unspecified dementia severity, unspecified whether behavioral, psychotic, or mood disturbance or anxiety (HCC) Social History Tobacco Use Types Packs/Day Years Used Date Smoking Tobacco: Former Cigarettes 1 40 1 969 - 2008 Smokeless Tobacco: Never Tobacco Cessation:Counseling Given: Not [...] often do you attend chur ch or yarsani services? 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 Gender Identity Not on file Sexual Orientation Straight 01/23/2021 10 :16 PM CDT documented as of this encounter Last Filed Vital Signs Vital Sign Reading Time Taken Comments Blood Pressure 183/81 09/19/2022 8:52 AM CDT Pulse 66 09/19/2022 8:52 AM CDT Temperature - - Respiratory Rate - - Oxygen Saturation - - Inhaled Oxygen Concentration - - Weight 81.2 kg (179 lb) 09/19/2022 8:52 AM CDT Height 170.2 cm (5' 7 ) 09/19/2022 8:52 AM CDT Body Mass Index 28.04 09/19/2022 8:52 AM CDT documented in this encounter Patient Instructions * Patient Instructions* Bucky Hayes MD - 09/19/2022 10:00 AM CDT [facility] - VISIT SUMMARY & PATIENT INSTRUCTIONS For Mr. Villa Zuniga (: 1945) [facility], Department of Neurology Clinic (Nurse Jenn Knight) Providers today were: Dr. Bucky Hayes (attending physician) FEEDBACK/DIAGNOSTIC ISSUES REGARDING BRAIN HEALTH Thank you for coming to the [facility] today and for allowing us to participate in your medical care. The findings today are most consistent with: a mild to moderate dementia most likely caused by a combination of vascular disease and Lewy body dementia. That said, about 2/3 patients with LBD also have Alzheimer disease pathology as well. Memory and thinking test scores today: Your test scores today were: MMSE (Mini Mental Status Exam): Mini-Mental Total Score ((out of 30): 16 A perfect score on this test is 30. A score of of between 27-30 is considered normal. A score of 24-26 is considered mildly impaired. A score of 20-23 is impaired. Scores below 20 show moderate impairment and 10 or below showssevere impairment. Short Blessed Test: Short Blessed Total Score: 18 A perfect score on the Short Blessed Test is a 0 (higher score means poorer performance). A score of 4 or below is normal to very mild impairment. Scores of 5 or more indicate impairment. The maximum (worst) score is 28. Both tests of verbal memory were clearly abnormal as were tests of language and executive function. RECOMMENDATIONS FOR FURTHER TESTING Laboratory (Blood tests): I will put in a B12 lab order that you can get done the next time you have to give blood. MEDICATIONS DISCUSSED TODAY Changes to your medications were recommended today. Memantine--begin with 1 tablet daily for 2 weeks then increase to 1 tablet twice daily. ADDITIONAL RECOMMENDATIONS/RESOURCES Nutrition: We recommend that you eat a balanced diet, including fruits and vegetables daily and regular servings of fish. The Mediterranean Diet is a reasonable approach to incorporate these goals. Activity: We recommend that you engage in daily physical activity such as walking or stretching. Ifyou have not already done so, you should consider developing a regular exercise regimen. We recommend you do things that stimulate your mind, such as puzzles, books, working on hobbies, visiting with friends and relatives or engaging in other social and community activities. If you are interested in an neisha for brain training, Dropbox is a good one that has been used in a number of research studies. Sleep: Sleep can have a big effect [...] do a relaxing activity fora few minutes. Driving: You have already made the decision to stop driving. We support this decision. You should not drive FOLLOW-UP You should F/U with Salena Johnson NP, Melvi Delarosa NP or MELVIN Hancock in about 6-8 months. Please make your appointment as you leave today, or call [phone]. You should continue to see your primary care doctor at regular intervals. RESOURCES FOR ADDITIONAL INFORMATION AND SUPPORT Alzheimer's Association [facility] Chapter: ; (toll free); http://www.alz.org [facility] [phone] http://memorySaint [facility] Agency on Aging (serving [facility]) http://[facility].[place].[facility]/government/hslaaa.html [facility] Agency on Aging (serving [place], [facility] and [facility] http://www.snoqualmie valley hospitalaaa.org [facility]- provides counseling and help with the aging and ailments of our loved ones. They may be able to provide counseling in your home as well as in their office and services may be covered by Medicare. [address], [place] [address] or [email or web address]. Website: http://Deckerton/services/dnftcj-lolt-lyxhjfdv/ [employer], Cognitive Stimulation Through Activity at the [facility]. [address] [place] [address] http://www.PinBridge/project/tdiz-ez-hbegic/ Lewy Body Dementia Association: (toll free); http://www.LBDA.org Association for Frontotemporal Dementias: (toll free); http://www.ftd-picks.org Geriatric [employer] Inside: [employer], Ms. Bere Sierra, https://www.decisionpointconsulting.org/ Pathways for aging http://DataFox.Digital Karma/ Alia Orellana with [facility], Certified Legal Financial Specialist, [address], [address] [address]. , fax: [phone]. [email or web address] documented in this encounter Ordered Prescriptions Prescription Sig Dispense Quantity Refills Last Filled Start Date End Date memantine (NAMENDA) 5 mg tablet Take 1 tablet (5 mg total) by mouth 2 (two) times a day 60 tablet 11 09/19/2022 01/24/2023 documented in this encounter Progress Notes * Bucky Hayes MD - 09/19/2022 10:00 AM CDT Images from the original note were not included. [facility] NEW PATIENT VISIT Face to Face Start Time: 11:04 CHIEF COMPLAINT: Mr. Zuniga is here today for memory loss. HPI: Mr. Zuniga is a 76 y.o. right handed gentleman who is seen today accompanied by Ian his son who serves as collateral source (CS). The CS sees him daily. The patient and his who also has a dementia have been living with Ian and his 2 weeks ago. Ian had been staying with them as a healthcare specialist for a couple of months prior to that. The CS first noticed memory and thinking problems in late 2018. The first problems noted were missing bills. There had also been some chronic issues with money management, but this was different. typically does repeat questions or stories, may not remember a recent event, may not remember details of a recent event, or conversation, needs reminding about appointments, and needs help remembering medications. He does not have difficulty coming up with words. He does not have difficulty carrying on a conversation. He has problems with the day and date and even month or year. Judgment and problem solving is only fair. He has had difficulty with paying bills, likely has trouble ordering from a menu, he would not likely be able to figure out a tip. In social situations, he is socially appropriate. That said, he has been somewhat hypersexual with his but has not approached others. He quit driving about 3 months ago at family insistence. They would only go to [employer] and a [place] place. He can't shop independently--could perhaps superficially go through the motions butmakes bad decisions on what to buy. Around the house he does not help out much, but he had never done much--they had a very traditionaldivision of labor in the household. He quit mowing the yard, even with a riding mower. No real hobbies. ACTIVITIES OF DAILY LIVING: He needs prompting to bathe or groom. He has needed help bathing for several months. He has had several falls with a tendency to fall backwards--has been for about 8 months. He has intermittent resting tremor. No hallucinations. He gets up frequently during the night. He was diagnosed with JIMMY but refuses CPAP. He has significant fluctuations--will at times get mumbly and tangential with his speech. He has imaging evidence of a significant left frontal infarct as well as thalamic and caudate lacunar infarctions and white matter disease. The left frontal stroke is a bit of a mystery as to when itoccurred but appeared as an old stroke as far back as an MRI in 2014. Current Outpatient Medications: amLODIPine (NORVASC) 2.5 mg [...] mouth daily, Disp: 90 tablet, Rfl: [address] (NexIUM) 40 mg capsule, Take 40 mg by mouth daily as needed (Patient not taking: Reported on 09/06/2022), Disp: , Rfl: finasteride (PROSCAR) 5 mg tablet, Take 1 tablet (5 mg total) by mouth daily, Disp: 90 tablet, Rfl:3 HYDROcodone-acetaminophen (NORCO) 5-325 mg per tablet, Take 1 tablet by mouth every 4 (four) hours as needed for pain, Disp: 10 tablet, Rfl: 0 lidocaine (LIDODERM) 5 %, Place 1 patch on the skin daily Remove & discard patch within 12 hours or as directed by MD. (Patient not taking: Reported on 08/12/2022), Disp: 10 patch, Rfl: 0 lisinopriL (PRINIVIL,ZESTRIL) 20 mg tablet, Take 1 tablet (20 mg total) by mouth daily, Disp: 30 tablet, Rfl: 1 magnesium oxide (MAG-OX) 400 mg (241.3 mg elemental magnesium) tablet, Take 1 tablet (400 mg total)by mouth 2 (two) times a day, Disp: 180 tablet, Rfl: 1 metoprolol XL (TOPROL-XL) 25 mg extended release tablet, TAKE 1 TABLET BY MOUTH DAILY, Disp: 90 tablet, Rfl: 1 Allergies Allergen Reactions Ciprofloxacin Rash Reaction: RASH, Reaction: Rash, Patient Active Problem List Diagnosis Hyperlipidemia Benign prostatic hyperplasia with lower urinary tract symptoms Essential hypertension Medicare annual wellness visit, subsequent Kidney stones Sensorineural hearing loss, bilateral Polycythemia Bladder stones Coronary artery disease involving [place] coronary artery of [place] heart without angina pectoris Chronic GERD History of colon polyps TIA (transient ischemic attack) History of noncompliance with medical treatment Cerebrovascular arteriosclerosis Bilateral carotid artery disease (CMS/HCC) ([facility]) 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 Hypersomnia Obstructive sleep apnea Closed fracture of one rib of right side Closed fracture of one rib of right side, initial encounter Generalized weakness Elevated brain natriuretic peptide (BNP) level Hospital discharge follow-up Dizziness Cognitive decline Bradycardia Pulmonary hypertension (CMS/HCC) (HCC) Biatrial enlargement Paroxysmal atrial fibrillation (CMS/HCC) ([facility]) Past Medical History: Diagnosis Date Mayo esophagus Chronic obstructive pulmonary disease (CMS/HCC) (HCC) COPD Diabetes mellitus (HCC) Diabetes GERD (gastroesophageal reflux disease) Heart disease HX OTHER MEDICAL 2013 Heart stents HX OTHER MEDICAL urinary stent s placed Hyperlipidemia Hyperlipidemia Hypertension Hypertension Kidney stone Past Surgical History: Procedure Laterality Date COLONOSCOPY 2009 OTHER SURGICAL HISTORY 2002 Carpal tunnel release both OTHER SURGICAL HISTORY karen total knees OTHER SURGICAL HISTORY 2012 Heart stents: [facility] Family History Problem Relation Age of Onset Hypertension Mother Hypertension; Heart disease Mother Heart disease; Diabetes Mother Diabetes mellitus; Stroke Mother Stroke; Cancer Mother Cancer; Heart attack Mother Alzheimer's disease Father Alzheimer's Disease; Memory loss Father Cancer Brother Personal History: Social History Tobacco Use Smoking status: [...] not drink Frequency of Binge Drinking: Never ROS Pertinent positives are discussed in the HPI and all other systems are negative. Medical Records Review: No results found for: VITB12 Lab Results Component Value Date TSH 1.68 08/06/2022 Lab Results Component Value Date WBC 6.1 08/11/2022 HGB 13.8 08/11/2022 HCT 44.5 08/11/2022 MCV 86.4 08/11/2022 LABPLAT 171 08/11/2022 Lab Results Component Value Date GLUCOSE 93 08/11/2022 CALCIUM 8.3 (L) 08/11/2022 SODIUM 142 08/11/2022 POTASSIUM 3.9 08/11/2022 CO2 26 08/11/2022 CHLORIDE 108 08/11/2022 BUNSER 22 08/11/2022 CREATININE 1.10 08/11/2022 Lab Results Component Value Date ALT 14 08/06/2022 AST 16 08/06/2022 ALKPHOS 109 08/06/2022 BILITOT 0.4 08/06/2022 Physical Exam: BP (!) 183/81 (BP Location: Left arm, Patient Position: Sitting) Pulse 66 Ht 170.2 cm (5' 7 ) Wt 81.2 kg (179 lb) BMI 28.04 kg/m?? GEN: no acute distress PULM: no increased respiratory effort SKIN: no visible rashes or lesions PSYCH: calm and cooperative Neurological exam: Cranial Nerves II-XII: Visual douglas were full. Pupils were equal, round and reactive to light. Extra ocular movements were full with saccadic smooth pursuit . Facial sensation was intact in all three divisions of the trigeminal nerve. Facial movement was symmetric. Hearing was adequate for conversation and intact to finger rub. Palate elevation was symmetric. Shoulder shrug and head turning weresymmetric. Tongue protrusion was midline. Motor exam revealed mild rigidity with cogwheeling left arm > right. Strength was symmetrical other than 4/5 right dorsiflexion with intact eversion and impaired inversion. Fine finger movements were slower and hypometric, worse on the left. There was noorbiting. Wfeoky-zujb-anzyfq was normal. No resting tremor or bradykinesia was detected. Sensation was intact to light touch without lateralized deficit. Reflexes were symmetric at the biceps, triceps, brachioradialis and knees. Ankle jerks were absent. Gait was very impaired--had to push himself up to stand. Mildly wide based with right foot out turned and reduced stride and clearance as well as multiple steps on turns. Spontaneous speech was mildly hypophonic but otherwise fluent. He was unable to correctly perform serial 3's, able to calculate the number of quarters in $6.75, and unable to correctly draw a clock. Attempt at Clock Drawing NEUROBEHAVIORAL TESTING REPORT The testing session started at 9:45 and ended at 10:15. Tests of language and semantic memory were in the mildly impaired range on the [place] Naming Test (15 item) and in the moderately impaired range for category verbal fluency (Animals). Tests of Episodic memory were moderately impaired on the CERAD Word List Test and moderately impaired on Logical Memory (recall of details from a story). He was severely impaired on trailmaking part A, and severely impaired on digit symbol. On more global tests, MMSE was 16/30 and Short Blessed was 18. He was correct on 0/3 memory items on the MMSE and on 3/5 on the Short Blessed. My interpretation and reporting of these results took 20 minutes. Neurobehavioral test results: [facility] Neurobehavioral Status Exam Results 09/19/2022 Repository ICF signed? No Verbal Fluency Total Score 8 [place] Naming (15 item) Total Score 13 MMSE Score 16 Word List Memory Task 6 Word List Recall 1 Short Blessed Total Score 18 Logical Memory Total Score 4 Trails A - Seconds to complete (No Data) Trails A - Errors (No Data) Trails B - Seconds to complete (No Data) Trails B - Errors (No Data) Total Score (out of 90) 15 Digit Symbol Errors 1 Clinical Dementia Rating Memory: 1 Mild Orientation: 2 Moderate Judgement & Problem Solvin Mild Community Affairs: 1 Mild Home & Hobbies: 1 Mild Personal Care: 2 Moderate Global Score: 1 Sum of Boxes: 8 ASSESSMENT & PLAN: Mr. Zuniga is a 76 y.o. gentleman with a mild to moderate dementia that undoubtedly has a vascularcontribution, but the course of the progressive phase has been characteristic of Lewy body dementiawith Parkinsonism and prominent fluctuations (2 core features c/w probable LBD). He has not had a vitamin B12 checked, so will order this and it can be drawn at his next routine blood draw In discussing possible treatment options it came out that he has had episodes of significant bradycardia, into the 30's--one time this was apparently exacerbated by Paxlovid. This may prove problematic for using a cholinesterase inhibitor. May consider rivastigmine transdermal in the future if cleared by cardiology because of rapid clearance upon patch removal--is essentially cleared after 3 hours, but for now will use memantine. Certainly in the future if he should require a pacemaker, then there would be no issue. 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 High dose medroxyprogesterone can be used but should establish a clear need before doing that. Secondary stroke prevention is being addressed with Eliquis for A-fib and therapeutic phlebotomy for the polycythemia. Plan: Check B12 level Memantine 5 mg daily for 2 weeks and then increase to 5 mg bid (may take both doses at once if needed for compliance as the T1/2 is 60-80 hours) Agree with no driving F/U with Salena Johnson NP, Melvi Delarosa NP or MELVIN Hancock in about 6-8 months. Face to Face End Time: 1:10 My total face to face time spent with the patient and/or CS (Independent Historian) on today's visit: 126 minutes I spent 20 minutes interpreting the results of standardized neuropsychological testing, integratingthese results into clinical decision making and treatment plan, providing interactive feedback to the patient and family member(s)/caregiver(s) and report, and documenting this in the patient's chart. In addition to the interpretation time listed above (and exclusive of that time), I spent 120 minutes on the day of the encounter on activities related to the visit including preparing to see the patient by reviewing labs, tests and medical records, time spent [id number] with the patient and family during the visit, performing counselling and education, placing orders and documenting the visitin the patient's EHR. The feed research technician spent from 9:45 to 10:15 on neuropsychological test administration and scoring. Detailed plan and patient/caregiver education and referrals are in the AVS copied below and were given to the patient and CS at the close of the visit. Patient Instructions [facility] - VISIT SUMMARY & PATIENT INSTRUCTIONS For Mr. Villa Zuniga (: 1945) [facility], Department of Neurology Clinic (Nurse Jenn Knight) Providers today were: Dr. Bucky Hayes (attending physician) FEEDBACK/DIAGNOSTIC ISSUES REGARDING BRAIN HEALTH Thank you for coming to the [facility] today and for allowing us to participate in your medical care. The findings today are most consistent with: a mild to moderate dementia most likely caused by a combination of vascular disease and Lewy body dementia. That said, about 2/3 patients with LBD also have Alzheimer disease pathology as well. Memory and thinking test scores today: Your test scores today were: MMSE (Mini Mental Status Exam): Mini-Mental Total Score ((out of 30): 16 A perfect score on this test is 30. A score of of between 27-30 is considered normal. A score of 24-26 is considered mildly impaired. A score of 20-23 is impaired. Scores below 20 show moderate impairment and 10 or below showssevere impairment. Short Blessed Test: Short Blessed Total Score: 18 A perfect score on the Short Blessed Test is a 0 (higher score means poorer performance). A score of 4 or below is normal to very mild impairment. Scores of 5 or more indicate impairment. The maximum (worst) score is 28. Both tests of verbal memory were clearly abnormal as were tests of language and executive function. RECOMMENDATIONS FOR FURTHER TESTING Laboratory (Blood tests): I will put in a B12 lab order that you can get done the next time you have to give blood. MEDICATIONS DISCUSSED TODAY Changes to your medications were recommended today. Memantine--begin with 1 tablet daily for 2 weeks then increase to 1 tablet twice daily. ADDITIONAL RECOMMENDATIONS/RESOURCES Nutrition: We recommend that you eat a balanced diet, including fruits and vegetables daily and regular servings of fish. The Mediterranean Diet is a reasonable approach to incorporate these goals. Activity: We recommend that you engage in daily physical activity such as walking or stretching. Ifyou have not already done so, you should consider developing a regular exercise regimen. We recommend you do things that stimulate your mind, such as puzzles, books, working on hobbies, visiting with friends and relatives or engaging in other social and community activities. If you are interested in an neisha for brain training, Dropbox is a good one that has been used in a number of research studies. Sleep: Sleep can have a big effect [...] do a relaxing activity fora few minutes. Driving: You have already made the decision to stop driving. We support this decision. You should not drive FOLLOW-UP You should F/U with Salena Johnson NP, Melvi Delarosa NP or MELVIN Hancock in about 6-8 months. Please make your appointment as you leave today, or call [phone]. You should continue to see your primary care doctor at regular intervals. RESOURCES FOR ADDITIONAL INFORMATION AND SUPPORT Alzheimer's Association of [place] Chapter: ; (toll free); http://www.alz.org [facility] [phone] http://memorycareSt. [facility] Agency on Aging (serving [facility]) http://[facility].[place].[facility]/government/hslaaa.html [facility] Agency on Aging (serving [facility] and [facility] http://www.[facility]qualmie valley hospitalaaa.org [facility]- provides counseling and help with the aging and ailments of our loved ones. They may be able to provide counseling in your home as well as in their office and services may be covered by Medicare. [address], [place] [address] or . Website: http://[employer]erton/services/lhcvgz-swio-paepbjvr/ [employer], Cognitive Stimulation Through Activity at the [facility] [employer]. [address] [place] [address] http://www.StackMob.Digital Karma/project/ojzm-fp-gevpew/ Lewy Body Dementia Association: (toll free); http://www.LBDA.org Association for Frontotemporal Dementias: (toll free); http://www.ftd-picks.org Geriatric Horticultural Specialty Grower Inside: [employer], . Bere Mariela, https://www.decisionpointconsulting.org/ Pathways for aging http://PandaDoc/ Alia Orellana with [employer] Elder David, Certified Legal Financial Specialist, Raegan [address] , [address] [address]. , fax: [phone]. [email or web address] Bucky Hayes MD [facility] documented in this encounter Miscellaneous Notes * Addendum Note - Sunday Mcfadden - 09/19/2022 10:00 AM CDTAddended by: SUNDAY MCFADDEN on: 11/03/2022 12:01 PM Modules accepted: Orders * Addendum Note - Sunday Mcfadden - 09/19/2022 10:00 AM CDTAddended by: SUNDAY MCFADDEN on: 11/03/2022 12:01 PM Modules accepted: Orders documented in this encounter Plan of Treatment Not on file documented as of this encounter Goals Goal Patient Goal Type Associated Problems Recent Progress Patient-Stated? Author GULSHAN General Goal - Patient schedules and keeps appointments with all recommended providers ACO Care Management On track(2022 11:14 AM SEAL SKINNER) Sepideh Guo RN Note: Problem: Potential for [...] documented as of this encounter Results * Vitamin B12 (11/03/2022 12:10 PM CDT) Vitamin B12 752 230 - 1,250 pg/mL [facility] Comment: Test performed on EDTA plasma as per procedure for alternate specimen. Gold serum tube hemolysis too high per procedure. Testing performed by: [facility], [address] [place] [address]., [address] Blood 11/03/2022 12:1 0 PM CDT 11/03/2022 12:16 PM CDT Bucky Hayes MD LAB BLOOD ORDERABLES Final Result [facility] [address] [facility] Department [place] [address] documented in this encounter Visit Diagnoses Diagnosis Cognitive decline- Primary History of stroke Transient ischemic attack (TIA), and cerebral infarction without residual deficits Lewy body dementia, unspecified dementia severity, unspecified whether behavioral, psychotic, or mood disturbance or anxiety (HCC) documented in this encounter Discontinued Medications Medication Sig Discontinue Reason Start Date End Da te esomeprazole DR (NexIUM) 40 mg capsule Take 40 mg by mouth daily as needed 09/19/2022 HYDROcodone-acetaminoph en (NORCO) 5-325 mg per tabletIndications:Pain Take 1 tablet by mouth every 4 (four) hours as needed for pain 08/11/2022 09/19/2022 lidocaine (LIDODERM) 5 % Place 1 patch on the skin daily Remove & discard patch within 12 hours or as directed by . 08/12/2022 09/19/2022 documented as of this encounter Orders Outpatient Referral Count Last Ordered Date Fir st Ordered Date AMB REFERRAL TO NEUROLOGY 1 09/19/2022 documented in this encounter Additional Health Concerns Infection Onset Date Last Indicated Resolved Time COVID: Recovered Comment:Added based on recent COVID infection. 08/16/2022 08/17/2022 11/14/2022 3:05 AM C DT documented as of this encounter Care Teams Senior Auditor Relationship Specialty Start Date End Date Christine Herzog MD [address] [facility] [address] [place] [address] PCP - General Internal Medicine 12/02/21 Trey Pinedo MD [address] [place] [address] [address] [place] [address] Consulting Physician Neurology 05/09/19 Albert Craft MD [address] [facility] [address] [place] [address] Consulting Physician Gastroenterology 03/11/22 Chintan Fgiueroa MD [address] [facility] [address] [place] [address] Consulting Physician Hematology and Oncology 03/11/22 Jameel Bloom DPM [address] [place] [address] Consulting Physician Orthotics 03/11/22 Gadiel Genao MD [address] [place] [address] Surgeon Vascular Surgery 03/11/22 Lexii Arnold MA [address] [place] [address] [address] [place] [address] ACO Care Surveyor Rod Helper 09/19/22 09/20/22 Walekr Carvajal LCSW [address] [place] [address] [address] [place] [address] Accountant Clerk 09/27/22 09/27/22 documented as of this encounter
--- OUTSIDE RECORDS SUMMARY | 2024-06-18 18:06 | XMS_ITS | Encounter Summary ---
Author Organization [facility] Home Care Servic es Address [address] [place] [address] Phone Care Team Providers Care Pharmacy Resource Tech Name Role Phone Trey Pinedo MD Unavailable [phone] Christine Herzog MD Primary Care Provide r Albert Craft MD Unavailable [phone] Chintan Figueroa MD Unavailable [phone] Jameel Bloom DPM Unavailable [phone] Gadiel Genao MD Unavailable [phone] Sepideh Hi RN Unavailable [phone] Reason for Visit * Auth/Cert Specialty Diagnoses / Procedures Referred By Contac t Referred To Contact Referral ID Status Reason Start Date Expiration Date Visits Re quested Visits Authorized [id number] 1 1 Encounter Details Date Type Department Care Team (Latest Contact Info) Description 08/13/2022 12:30 PM MARBLE CEILING INSTALLER Home Care Visit [facility] Home Health [address] [place] [address] Rosario Rowland, SUE SN OASIS START OF CARE Social History Tobacco Use Types Packs/Day Years [...] often do you attend chur ch or episcopalian services? Never 08/12/2022 Do you belong to any clubs o r organizations such as protestant groups, unions, fraternal or athletic groups, or [...] slept in a usp (including now)? 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 MARBLE CEILING INSTALLER Gender Identity Not on file Sexual Orientation Straight 01/23/2021 10 :16 PM CDT documented as of this encounter Last Filed Vital Signs Vital Sign Reading Time Taken Comments Blood Pressure 156/84 08/13/2022 1:38 PM MARBLE CEILING INSTALLER Pulse 54 08/13/2022 1:38 PM MARBLE CEILING INSTALLER Temperature 36.4 ??C (97.5 ??F) 08/13/2022 1:38 PM CS T Respiratory Rate 20 08/13/2022 1:38 PM MARBLE CEILING INSTALLER Oxygen Saturation 93% 08/13/2022 1:38 PM MARBLE CEILING INSTALLER Inhaled Oxygen Concentration - - Weight 67.1 kg (148 lb) 08/13/2022 1:38 PM MARBLE CEILING INSTALLER Height 172.7 cm (5' 8 ) 08/13/2022 1:38 PM MARBLE CEILING INSTALLER Body Mass Index 22.5 08/13/2022 1:38 PM MARBLE CEILING INSTALLER documented in this encounter Miscellaneous Notes * Quality Review - Jaquan Sequeira - 08/13/2022 12:30 PM CST Select Data Recommendations: M1028 - Comorbidities and Co-existing Conditions ??? Check all that apply See OASIS Guidance Manualfor a complete list of relevant ICD-10 codes Documented Answer: Recommendation: 1 - Active Diagnoses - PVD or PAD; 2 - Diabetes Mellitus M1033 - Risk for Hospitalization: Which of the following signs or symptoms characterize this patient as at risk for hospitalization? Documented Answer: 8 - Currently reports exhaustion; 9 - Other risk(s) not listed in 1 - 8 Recommendation: 5 - Decline in mental, emotional, or behavioral status in the past 3 months; 7 - Currently taking 5 or more medications; 8 - Currently reports exhaustion; 9 - Other risk(s) not listedin 1 - 8 Comments: add 5 - requires prompting and confused add 7 - taking more than 5 meds 08/17/2022 JAGDISH Bowling Chart review and recommendations completed by: LALY Lu, CCS LE CEILING INSTALLER documented in this encounter Plan of Treatment Not on file documented as of this encounter Goals Goal Patient Goal Type Associated Problems Recent Progress Patient-Stated? Author GULSHAN General Goal - Patient schedules and keeps appointments with all recommended providers ACO Care Management On track(2022 11:14 AM MARBLE CEILING INSTALLER) Sepideh Guo, RN Note: Problem: Potential for [...] Infection Onset Date Last Indicated Resolved Time COVID19 Comment:Airborne + Contact precautions. Gown, Gloves, N95, eye protection or goggles. Precautions 08/16/22. Contact Wool Batting Worker if patient worsens. SUE Baldwin 08/12/22 08/06/2022 08/06/2022 08/16/2022 3:[address] COVID: Recovered Comment:Added based on recent COVID infection. 08/16/2022 08/17/2022 11/14/2022 3:05 AM C DT documented as of this encounter Home Health Visit - Care Plan Visit Details Visit Type -SN OASIS Start o f Care Discipline -Penitentiary Problems Problem Description Start Date Status Goals Interve ntions Homebound Status Disciplines: Skilled Disciplines Patient's homebound status 08/13/2022 Active 1 goal linked to scheduled/documen kamala intervention 1 goal intervention scheduled/documen kamala in this visit Medications Disciplines: Penitentiary Management of home medications 08/13/2022 Active 1 goal linked to scheduled/documen kamala intervention 1 goal intervention scheduled/documen kamala in this visit Monitor patient's vital signs every home health visit Disciplines: SN, PT, OT, ANESTHESIOLOGIST ATTENDING, FISHERIES DIVER, Skilled Disciplines Monitor patient's vital signs every home health visit. 08/13/2022 Active 1 goal linked to scheduled/documen kamala intervention 1 goal intervention scheduled/documen kamala in this visit Infection Prevention Disciplines: Skilled Disciplines Infection Prevention 08/13/2022 Active 1 goal linked to scheduled/documen kamala intervention 2 goal interventions scheduled/documen kamala in this visit Safety concerns [...] most appropriate care setting. Homebound Status No Understand and follow medication therapy Description: Patient/caregiver will understand and follow prescribed medication therapy as evidence by having up to date medication list in home & ability to verbalize purpose, schedule, and side effects by the end of the episode of care Medications No Measure vital signs during every home health visit during episode of care Description: Home etymology teacher to measure vital signs during every home health visit during episode of care. Monitor patient's vital signs every home health visit No Verbalize signs of infection Description: Patient/caregiver will demonstrate knowledge of infection prevention strategies by verbalizing signs and symptoms of infection. Infection Prevention No Demonstrate use of safety precautions Description: [...] of another to leave home safely Instruct medications Description: Instruct patient/caregiver in medication administration, purpose, dosages, preparation, scheduling, side effects, food/drug interactions, storage, drug allergies, and potential complications. Problem:Medications Goal:Understand and follow medication therapy Completed medications reconciled Monitor Vital Signs Description: Monitor blood pressure, pulse, oxygen saturation, respirations Problem:Monitor patient's vital signs every home health visit Goal:Measure vital signs during every home health visit during episode of care Completed Educate Patient on Infection Prevention Description: Instruct patient on signs and symptoms of infection IE: fever, odor, change in color, increased amount of drainage, purulent drainage, warmth. Problem:Infection Prevention Goal:Verbalize signs of infection Completed Educate Family on Infection Prevention Description: Instructed family on signs and symptoms of infection IE: fever, odor, change in color, increased amount of drainage, purulent drainage, warmth. Problem:Infection Prevention Goal:Verbalize signs of infection Completed [...] pain has been reduced or controlled Scheduled documented in this encounter Care Teams Pharmacy Resource Tech Relationship Specialty Start Date End Date Christine Herzog MD [address] [facility] [address] [place] [address] PCP - General Internal Medicine 12/02/21 Trey Pinedo MD [address] [place] [address] [address] [place] [address] Consulting Physician Neurology 05/09/19 Albert Craft MD [address] [facility] [place] [address] Consulting Physician Gastroenterology 03/11/22 Chintan Figueroa MD [address] [place] [address] [address] [place] [address] Consulting Physician Hematology and Oncology 03/11/22 Jameel Bloom DPM [address] [place] [address] Consulting Physician Orthotics 03/11/22 Gadiel Genao MD [address] [place] [address] Surgeon Vascular Surgery 03/11/22 Sepideh Hi RN [address] [place] [address] [address] [place] [address] Email Administrator 08/12/22 09/01/22 documented as of this encounter
--- OUTSIDE RECORDS SUMMARY | 2024-06-18 18:06 | XMS_ITS | Encounter Summary ---
Author Organization [facility] Home Care Servic es Address [address] [place] [address] Phone Care Team Providers Care Optimization Specialist Name Role Phone Trey Pinedo MD Unavailable [phone] Christine Herzog MD Primary Care Provide r Albert Craft MD Unavailable [phone] Chintan Figueroa MD Unavailable [phone] Jameel Bloom DPM Unavailable [phone] Gadiel Genao MD Unavailable [phone] Sepideh Hi RN Unavailable [phone] Encounter Details Date Type Department Care Team (Late st Contact Info) Description 08/13/2022 Plan of Care Documentation [facility] Home Health - [address] [place] [address] Social History Tobacco Use Types Packs/Day Years [...] often do you attend chur ch or uatsdin services? Never 08/12/2022 Do you belong to any clubs o r organizations such as samaritan groups, unions, fraternal or athletic groups, or [...] in a nursing home (including now)? 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 AGRICULTURE SALES ACCOUNT MANAGER Gender Identity Not on file Sexual Orientation Straight 01/23/2021 10 :16 PM CDT documented as of this encounter Plan of Treatment Not on file documented as of this encounter Goals Goal Patient Goal Type Associated Problems Recent Progress Patient-Stated? Author GULSHAN General Goal - Patient schedules and keeps appointments with all recommended providers ACO Care Management On track(2022 11:14 AM AGRICULTURE SALES ACCOUNT MANAGER) Sepideh Guo RN Note: Problem: Potential for [...] eye protection or goggles. Precautions 08/16/22. Contact Electronic Systems Technician if patient worsens. SUE Baldwin 08/12/22 08/06/2022 08/06/2022 08/16/2022 3:[address] documented as of this encounter Care Teams Optimization Specialist Relationship Specialty Start Date End Date Christine Herzog MD [address] [facility] [address] [place] [address] PCP - General Internal Medicine 12/02/21 Trey Pinedo MD [address] [facility] [address] [place] [address] Consulting Physician Neurology 05/09/19 Albert Craft MD [address] [facility] [place] [address] Consulting Physician Gastroenterology 03/11/22 Chintan Figueroa MD [address] [place] [address] [address] [place] [address] Consulting Physician Hematology and Oncology 03/11/22 Jameel Bloom DPM [address] [place] [address] Consulting Physician Orthotics 03/11/22 Gadiel Genao MD [address] [place] [address] Surgeon Vascular Surgery 03/11/22 Sepideh Hi RN [address] [place] [address] [address] [place] [address] College Teacher 08/12/22 09/01/22 documented as of this encounter
--- OUTSIDE RECORDS SUMMARY | 2024-06-18 18:06 | XMS_ITS | Encounter Summary ---
Author Organization [facility] Medical Group Address [address] [address] Care Team Providers Care Tamper Operator Name Role Phone Trey Pinedo MD Unavailable [phone] Christine Herzog MD Primary Care Provide r Albert Craft MD Unavailable [phone] Chintan Figueroa MD Unavailable [phone] Jameel Bloom DPM Unavailable [phone] Gadiel Genao MD Unavailable Sepideh Hi RN Unavailable Encounter Details Date Type Department Care Team (Late st Contact Info) Description 08/13/2022 Orders Only [facility] Accountable Care Organization [address] [place] [address] Ana Quintana, SUE [address] [place] [address] [address] [place] [address] Social History Tobacco Use Types Packs/Day Years [...] often do you attend chur ch or taoism services? Never 08/12/2022 Do you belong to any clubs o r organizations such as methodist groups, unions, fraternal or athletic groups, or [...] slept in a snf (including now)? 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 SOFTWARE TEST MANAGER Gender Identity Not on file Sexual Orientation Straight 01/23/2021 10 :16 PM CDT documented as of this encounter Plan of Treatment Not on file documented as of this encounter Goals Goal Patient Goal Type Associated Problems Recent Progress Patient-Stated? Author GULSHAN General Goal - Patient schedules and keeps appointments with all recommended providers ACO Care Management On track(2022 11:14 AM SOFTWARE TEST MANAGER) Sepideh Guo, SUE Note: Problem: Potential [...] eye protection or goggles. Precautions 08/16/22. Contact Train Control Electronic Technician if patient worsens. SUE Baldwin 08/12/22 08/06/2022 08/06/2022 08/16/2022 3:[address] documented as of this encounter Care Teams Tamper Operator Relationship Specialty Start Date End Date Christine Herzog MD [address] [facility] [address] [place] [address] PCP - General Internal Medicine 12/02/21 Trey Pinedo MD [address] [facility] [address] [place] [address] Consulting Physician Neurology 05/09/19 Albert Craft MD [address] [place] [address] [address] [place] [address] Consulting Physician Gastroenterology 03/11/22 Chintan Figueroa MD [address] [place] [address] [address] [place] [address] Consulting Physician Hematology and Oncology 03/11/22 Jameel Bloom DPM [address] [place] [address] Consulting Physician Orthotics 03/11/22 Gadiel Genao MD [address] [place] [address] Surgeon Vascular Surgery 03/11/22 Sepideh Hi RN [address] [place] [address] [address] [place] [address] Publication Specialist 08/12/22 09/01/22 documented as of this encounter
--- OUTSIDE RECORDS SUMMARY | 2024-06-18 18:06 | XMS_ITS | Encounter Summary ---
Author Organization [facility] Home Care Servic es Address [address] [place] [address] Phone Care Team Providers Care Design Specialist Name Role Phone Trey Pinedo MD Unavailable [phone] Christine Herzog MD Primary Care Provide r Albert Craft MD Unavailable [phone] Chintan Figueroa MD Unavailable [phone] Jameel Bloom DPM Unavailable [phone] Gadiel Genao MD Unavailable [phone] Reason for Visit * Auth/Cert Specialty Diagnoses / Procedures Referred By Contac t Referred To Contact Referral ID Status Reason Start Date Expiration Date Visits Re quested Visits Authorized [id number] 1 1 Encounter Details Date Type Department Care Team (Late st Contact Info) Description 09/09/2022 12:00 PM SEED BUYER Home Care Visit [facility] Home Health [address] [address] [address] [place] [address] Radha Martinez, PT PT REASSESSMENT Social History Tobacco Use Types Packs/Day Years [...] you attend chur ch or protestant services? Never 08/12/2022 Do you belong to any clubs o r organizations such as lutheran groups, unions, fraternal or athletic groups, or [...] slept in a custodial (including now)? 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 SEED BUYER Gender Identity Not on file Sexual Orientation Straight 01/23/2021 10 :16 PM CDT documented as of this encounter Last Filed Vital Signs Vital Sign Reading Time Taken Comments Blood Pressure 108/70 09/09/2022 11:49 AM SEED BUYER Pulse 62 09/09/2022 11:49 AM SEED BUYER Temperature 36.3 ??C (97.3 ??F) 09/09/2022 11:[address] Respiratory Rate 18 09/09/2022 11:49 AM SEED BUYER Oxygen Saturation 97% 09/09/2022 11:49 AM SEED BUYER Inhaled Oxygen Concentration - - Weight - - Height - - Body Mass Index - - documented in this encounter Miscellaneous Notes * Home Health Plan for Next Visit - Radha Martinez, PT - 09/09/2022 11:47 AM CST Reason for today's visit: SV/RA: review HEP, progress HEP, work on safety with transfers/amb Discuss plan of care with pt/son who agree with plan Discharge planning: ongoing Plan for next visit: continue to work on safety with use of WW; work on balance training. Review HEP BUYER documented in this encounter Plan of Treatment Not on file documented as of this encounter Goals Goal Patient Goal Type Associated Problems Recent Progress Patient-Stated? Author GULSHAN General Goal - Patient schedules and keeps appointments with all recommended providers ACO Care Management On track(2022 11:14 AM SEED BUYER) Sepideh Guo, SUE Note: Problem: Potential for [...] Care Plan Visit Details Visit Type -PT Reassessment Discipline -Physical Therapy Problems Problem Description Start Date Status Goals Interve ntions Homebound Status Disciplines: Skilled Disciplines Patient's homebound status 08/13/2022 Active 1 goal linked to scheduled/documen kamala intervention 1 goal intervention scheduled/documen kamala in this visit Monitor patient's vital signs every home health visit Disciplines: SN, PT, OT, LEGAL PRACTICE MANAGER, WAREHOUSE ASSOCIATE, Skilled Disciplines Monitor patient's vital signs every [...] visit during episode of care Description: Home registered occupational therapist to measure vital signs during every home [...] care setting Completed Patient is homebound due to: steps to enter/exit home without ramp/rails, requires walker and assist to leave home, some forgetfullness, weakness Monitor Vital Signs Description: Monitor blood pressure, [...] transfer training. Problem:PT Impaired Functional Mobility/Balance Completed Working on sit to stand from low couch with WW. Pt performed sit to stand x 3 with SBA. He requires cuing for proper hand placement/technique and reminders to back all the way up to the couch and reach back prior to sitting. Pt tends to sit without reaching back. Will require further instruction. Home Exercise Program (HEP) Description: Instruct patient/caregiver and perform HEP. Problem:PT Impaired Functional Mobility/Balance Completed Pt to continue HEP at least daily Gait/Stair Training Description: Instruct patient/caregiver and perform gait/stair training. Problem:PT Impaired Functional Mobility/Balance Completed Working on gait training with WW. Pt amb 55' x 2 indoors with SBA using a W/W. Cuing given to stand more erect and closer to walker. Slight antalgic pattern with amb. Able to partially correct with cuing. Somewhat uneven step length B. Did level off WW as it was lower in the back and could cause pt to fall posteriorly Balance Training/Activities Description: Instruct patient/caregiver and perform balance training activities. Problem:PT Impaired Functional Mobility/Balance Completed Working on standing balance activities in kitchen by the counter. Pt instructed in sidestepping along the counter. Pt tends to ER the lead leg at the hips with sidestepping. Unable to correct with cuing. Will reinstruct and perform as able. Pt also instructed in forward/backward walking along the counter with CGA. Pt able to amb with 1 handed support; cuing given to stand more erect and to look forwards with amb. Able to partially correct with cuing. Pt instructed to only perform balance training with assist. Pt v/u Therapeutic Exercise Description: Perform therapeutic exercise, progressing as tolerated. Problem:PT Impaired Functional Mobility/Balance Completed Pt instructed in and performed 10 reps of sitting: marching, LAQs and standing: marching, heel raises, hip abd, and mini squats. Pt requires cuing to remember to breathe, perform through entire ROM and to slow with ther-ex. Pt also instructed to stand more erect and look forwards with standing ther-ex. Able to partially correct with cuing. Pt unable to kick out to the side with hip abd; pt has to step out to the side. Will progress as able. documented in this encounter Care Teams Design Specialist Relationship Specialty Start Date End Date Chrsitine Herzog MD [address] [facility] [address] [place] [address] PCP - General Internal Medicine 12/02/21 Trey Pinedo MD [address] [place] [address] [address] [place] [address] Consulting Physician Neurology 05/09/19 Albert Craft MD [address] [place] [address] [address] [place] [address] Consulting Physician Gastroenterology 03/11/22 Chintan Figueroa MD [address] [place] [address] [place] [address] Consulting Physician Hematology and Oncology 03/11/22 Jameel Bloom DPM [address] [facility] [place] [address] Consulting Physician Orthotics 03/11/22 Gadiel Genao MD [address] [place] [address] Surgeon Vascular Surgery 03/11/22 documented as of this encounter
--- OUTSIDE RECORDS SUMMARY | 2024-06-18 18:06 | XMS_ITS | Encounter Summary ---
Author Organization [facility] Home Care Servic es Address [address] [place] [address] Phone Care Team Providers Care Smash Hand Name Role Phone Trey Pinedo MD Unavailable [phone] Christine Herzog MD Primary Care Provide r Albert Craft MD Unavailable [phone] Chintan Figueroa MD Unavailable [phone] Jameel Bloom DPM Unavailable [phone] Gadiel Genao MD Unavailable [phone] Sepideh Hi RN Unavailable [phone] Reason for Visit * Reason Comments Weakness - Generalized * Auth/Cert Specialty Diagnoses / Procedures Referred By Contac t Referred To Contact Referral ID Status Reason Start Date Expiration Date Visits Re quested Visits Authorized [id number] 1 1 Encounter Details Date Type Department Care Team (Late st Contact Info) Description 08/29/2022 9:00 AM CARDIOVASCULAR LAB DIRECTOR Home Care Visit [facility] Home Health - [address] [place] [address] Marianne Zhang, SAUL PT HOME VISIT Social [...] often do you attend chur ch or mormonism services? Never 08/12/2022 Do you belong to any clubs o r organizations such as anabaptist groups, unions, fraternal or athletic groups, or [...] in a mcc (including now)? 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 CARDIOVASCULAR LAB DIRECTOR Gender Identity Not on file Sexual Orientation Straight 01/23/2021 10 :16 PM CDT documented as of this encounter Last Filed Vital Signs Vital Sign Reading Time Taken Comments Blood Pressure 132/60 08/29/2022 9:38 AM CARDIOVASCULAR LAB DIRECTOR Pulse 56 08/29/2022 9:38 AM CARDIOVASCULAR LAB DIRECTOR Temperature 35.3 ??C (95.6 ??F) 08/29/2022 9:38 AM CS T Respiratory Rate 18 08/29/2022 9:38 AM CARDIOVASCULAR LAB DIRECTOR Oxygen Saturation 96% 08/29/2022 9:38 AM CARDIOVASCULAR LAB DIRECTOR Inhaled Oxygen Concentration - - Weight - - Height - - Body Mass Index - - documented in this encounter Miscellaneous Notes * Home Health Plan for Next Visit - Marianne Zhang PTA - 08/29/2022 9:02 AM CST Reason for today's visit to progress with gait, balance and strengthening, Discuss plan of care with pt and son present Discharge planning when appropriate Plan for next visit to progress with gait in and out of home on steps and gait outdoors pts son Ian reports that he will be moving his parents to his home in [place] over weekend discussed with him that pt will transition to the [facility] team to [facility] home care update to care team IOVASCULAR LAB DIRECTOR documented in this encounter Plan of Treatment Not on file documented as of this encounter Goals Goal Patient Goal Type Associated Problems Recent Progress Patient-Stated? Author GULSHAN General Goal - Patient schedules and keeps appointments with all recommended providers ACO Care Management On track(2022 11:14 AM CARDIOVASCULAR LAB DIRECTOR) Sepideh Guo RN Note: Problem: Potential for [...] home health visit Disciplines: SN, PT, OT, FIRST AID ATTENDANT, DENTAL LABORATORY TECHNICIAN APPRENTICE, Skilled Disciplines Monitor patient's vital signs every [...] visit during episode of care Description: Home back stayer to measure vital signs during every home [...] concerns Goal:Demonstrate use of safety precautions Completed do recommend using wheeled walker vs the cane Assess safety Description: Assess patient safety Problem:Safety [...] or controlled Completed pt has pain meds but denies pain Transfer training Description: Instruct patient/caregiver and perform transfer training. Problem:PT Impaired Functional Mobility/Balance Completed sit to from stand from recliner with cues to scoot forward and push up with karen ues then as seated to to reach back with arms and lower slowly pt completed 5 reps with cues Home Exercise Program (HEP) Description: Instruct patient/caregiver and perform HEP. Problem:PT Impaired Functional Mobility/Balance Completed while the pt was standing progressed to 15 reps of each including heel toe raises, hip abd/add, hip flexion with knee flexion, hamstring curls and hip extension pt balances with arms on the counter and supervision cues to complete correctly repeated sit to from stand x 5 reps pt has seated hep however focus today on balance, gait and transfers no seated exercises were completed pt has written hep of all exercises Gait/Stair Training Description: Instruct patient/caregiver and perform gait/stair training. Problem:PT Impaired Functional Mobility/Balance Completed gait in the home over level surfaces using wheeled walker for approx 80 ft x 1 and 40 ft x 1 cues to step further into the walker and to improve stridelength and stepheight exhibits decreased heel toe gait working on turning in each direction 180 degrees slightly unsteady but no lob Balance Training/Activities Description: Instruct patient/caregiver and perform balance training activities. Problem:PT Impaired Functional Mobility/Balance Completed progressed to 2 minutes of static stance with arms down to side and narrow base of support pt is fairly steady but then when reaching out to each side has decreased weight shift to the left and decreased cervical rom 10 times to each side and then reaching forward x 10 reps each while the pt in staggered stance x 30 seconds each leg is slightly unsteady CGA assist also working on sidestepping with karen ue support on counter 5 ft x 2 in each direction gait balance with walker 4-/5 Therapeutic Exercise Description: Perform therapeutic exercise, progressing as tolerated. Problem:PT Impaired Functional Mobility/Balance Completed see HEP comments documented in this encounter Care Teams Smash Hand Relationship Specialty Start Date End Date Christine Herzog MD [address] [place] [address] PCP - General Internal Medicine 12/02/21 Trey Pinedo MD [address] [place] [address] [address] [place] [address] Consulting Physician Neurology 05/09/19 Albert Craft MD [address] [place] [address] Consulting Physician Gastroenterology 03/11/22 Chintan Figueroa MD [address] [place] [address] Consulting Physician Hematology and Oncology 03/11/22 Jameel Bloom DPM [address] [place] [address] Consulting Physician Orthotics 03/11/22 Gadiel Gneao MD [address] [place] [address] Surgeon Vascular Surgery 03/11/22 Sepideh Hi RN [address] [place] [address] [address] [place] [address] Document Control Supervisor 08/12/22 09/01/22 documented as of this encounter
--- OUTSIDE RECORDS SUMMARY | 2024-06-18 18:06 | XMS_ITS | Encounter Summary ---
Author Organization [facility] Address [address] [place] [address] Care Team Providers Care Airway Traffic Controller Name Role Phone Trey Pinedo MD Unavailable [phone] Christine Herzog MD Primary Care Provide r Albert Craft MD Unavailable [phone] Chintan Figueroa MD Unavailable [phone] Jameel Bloom DPM Unavailable [phone] Gadiel Genao MD Unavailable Sepideh Hi RN Unavailable [phone] Reason for Visit * Reason Onset Date Comments Covid-19 Home Monitoring 08/21/2022 Encounter Details Date Type Department Care Team (Late st Contact Info) Description 08/21/2022 Telephone [facility] Accountable Care Organization [address] [place] [address] Lexii Ahumada LPN [address] [place] [address] [address] [place] [address] Covid-19 Home Monitoring Social History Tobacco Use Types Packs/Day Years [...] often do you attend chur ch or buddhism services? Never 08/12/2022 Do you belong to [...] on file 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 FREEZING MACHINE OPERATOR Gender Identity Not on file Sexual Orientation Straight 01/23/2021 10 :16 PM CDT documented as of this encounter Miscellaneous Notes * Telephone Encounter - Lexii Pino LPN - 08/21/2022 3:32 PM FREEZING MACHINE OPERATOR This patient is enrolled in the COVID-19 Home Monitoring Program and had not responded to the dailysymptom questionnaire. Telephonic outreach attempted to assess patient???s symptoms. Home Monitoring symptom questionnaire was not completed today, because the patient declined to answer the questionnaire. Symptom Questionnaire to be completed by patient tomorrow. Pt's son stated he would go into [employer] and fill out the survey ZING MACHINE OPERATOR documented in this encounter Plan of Treatment Not on file documented as of this encounter Goals Goal Patient Goal Type Associated Problems Recent Progress Patient-Stated? Author GULSHAN General Goal - Patient schedules and keeps appointments with all recommended providers ACO Care Management On track(2022 11:14 AM FREEZING MACHINE OPERATOR) Sepideh Guo RN Note: Problem: Potential [...] documented as of this encounter Care Teams Airway Traffic Controller Relationship Specialty Start Date End Date Christine Herzog MD [address] [facility] [address] [place] [address] PCP - General Internal Medicine 12/02/21 Trey Pinedo MD [address] [place] [address] [address] [place] [address] Consulting Physician Neurology 05/09/19 Albert Craft MD [address] [facility] [address] [place] [address] Consulting Physician Gastroenterology 03/11/22 Chintan Figueroa MD [address] [facility] [address] [place] [address] Consulting Physician Hematology and Oncology 03/11/22 Jameel Bloom DPM [address] [place] [address] Consulting Physician Orthotics 03/11/22 Gadiel Genao MD [address] [place] [address] Surgeon Vascular Surgery 03/11/22 Sepideh Hi RN [address] [place] [address] [address] [place] [address] Director Of Government Sales 08/12/22 09/01/22 documented as of this encounter
--- OUTSIDE RECORDS SUMMARY | 2024-06-18 18:06 | XMS_ITS | Encounter Summary ---
Author Organization [facility] es Address [address] [place] [address] Phone Care Team Providers Care Piano Stringer Name Role Phone Trey Pinedo MD Unavailable [phone] Christine Herzog MD Primary Care Provide r Albert Craft MD Unavailable [phone] Chintan Figueroa MD Unavailable [phone] Jameel Bloom DPM Unavailable [phone] Gadiel Genao MD Unavailable [phone] Sepideh Hi RN Unavailable [phone] Reason for Visit * Reason Comments Weakness - Generalized * Auth/Cert Specialty Diagnoses / Procedures Referred By Contac t Referred To Contact Referral ID Status Reason Start Date Expiration Date Visits Re quested Visits Authorized [id number] 1 1 Encounter Details Date Type Department Care Team (Late st Contact Info) Description 08/23/2022 9:00 AM LOGISTICS CENTER MANAGER Home Care Visit [facility] Home Health - [address] [place] [address] Marianne Zhang, SAUL PT HOME VISIT Social [...] often do you attend chur ch or mormon services? Never 08/12/2022 Do you belong to [...] in a senior care (including now)? 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 LOGISTICS CENTER MANAGER Gender Identity Not on file Sexual Orientation Straight 01/23/2021 10 :16 PM CDT documented as of this encounter Last Filed Vital Signs Vital Sign Reading Time Taken Comments Blood Pressure 110/60 08/23/2022 9:46 AM LOGISTICS CENTER MANAGER Pulse 50 08/23/2022 9:46 AM LOGISTICS CENTER MANAGER Temperature 35.1 ??C (95.2 ??F) 08/23/2022 9:46 AM CS T Respiratory Rate 18 08/23/2022 9:46 AM LOGISTICS CENTER MANAGER Oxygen Saturation 96% 08/23/2022 9:46 AM LOGISTICS CENTER MANAGER Inhaled Oxygen Concentration - - Weight - - Height - - Body Mass Index - - documented in this encounter Miscellaneous Notes * Home Health Plan for Next Visit - Marianne Zhang PTA - 08/23/2022 9:06 AM CST Reason for today's visit to instruct on up and down 2 steps outdoors Discuss plan of care with pt and sonIan Discharge planning when appropriate Plan for next visit to progress with gait, balance and strengthening pt and son are agreeable with poc update to Gladys RN and Kaykay PT re pts lower heart rate at rest and with activity STICS CENTER MANAGER documented in this encounter Plan of Treatment Not on file documented as of this encounter Goals Goal Patient Goal Type Associated Problems Recent Progress Patient-Stated? Author GULSHAN General Goal - Patient schedules and keeps appointments with all recommended providers ACO Care Management On track(2022 11:14 AM LOGISTICS CENTER MANAGER) Sepideh Guo, SUE Note: Problem: Potential [...] home health visit Disciplines: SN, PT, OT, CORPORATE SAFETY DIRECTOR, MANAGER BUSINESS PROCESS, Skilled Disciplines Monitor patient's vital signs every home health visit. 08/13/2022 Active 1 goal linked to scheduled/documen kamala intervention 2 goal interventions scheduled/documen kamala in this visit Infection Prevention [...] visit during episode of care Description: Home foreign languages department chair to measure vital signs during every home [...] health visit during episode of care Completed Supervising Discipline notification of abnormal vital signs Description: Use standardized clinical guidelines of abnormal vitals signs to report to supervising discipline. (HR 50-110, SBP 90-160, DBP 40-90, O2Sat 88-100%, temporal temp less than 101.5) Problem:Monitor patient's vital signs every home health visit Goal:Measure vital signs during every home health visit during episode of care Completed update to RN re pts HR at 50 at rest and with activity Educate Patient on Infection Prevention Description: Instruct patient on signs and symptoms of infection IE: fever, odor, change in color, increased amount of drainage, purulent drainage, warmth. Problem:Infection Prevention Goal:Verbalize signs of infection Scheduled Educate Family on Infection Prevention Description: Instructed family on signs and symptoms of infection IE: fever, odor, change in color, increased amount of drainage, purulent drainage, warmth. Problem:Infection Prevention Goal:Verbalize signs of infection Scheduled Instruct Fall Prevention Description: Instruct patient/caregiver in [...] pain has been reduced or controlled Completed has pain meds if needed Transfer training Description: Instruct patient/caregiver and perform transfer training. Problem:PT Impaired Functional Mobility/Balance Completed sit to from stand from dining room chair without arms with cues for positioning of arms to push himself up to push up on table with right hand and left hand on side of chair pt needs min asst difficult for the pt depends heavily on arms for sit to from stand from couch Home Exercise Program (HEP) Description: Instruct patient/caregiver and perform HEP. Problem:PT Impaired Functional Mobility/Balance Completed while the pt was standing instructed on 10 reps each of heel toe raises, hip abd/add, hip flexion with knee flexion and hamstring curls depending on ues on counter for safety then while seated 15 reps each of heel toe raises, hip abd/add, hip flexion with knee flexion, glut sets and laqs holding 3 seconds pt requires constant cues to complete correctly has written exercises to completed while seated is not yet ready to complete standing HEP will issue next visit Gait/Stair Training Description: Instruct patient/caregiver and perform gait/stair training. Problem:PT Impaired Functional Mobility/Balance Completed gait with wheeled walker in the home x 60 ft over level surfaces and outdoors on sidewalk approx 40 ft with cues to step further into walker up and down 2 steps with cane and handrail with cues on correct sequencing and min asst gait with SBQC in the home for approx 40 ft min asst and constant cues for sequencing pt is unsteady at times exhibits decreased hip flexion with knee flexion and heel toe gait sob noted with activity HR 50 with gait activiites Balance Training/Activities Description: Instruct patient/caregiver and perform balance training activities. Problem:PT Impaired Functional Mobility/Balance Completed while the pt was static standing able to complete 1 minute 30 seconds with feet slightly apart and arms down to side pt was fairly steady no lob then reaching out of base of support 5 reps with each arm forward and then reaching out to each side x 5 reps with decreased trunk movement staggered stance each leg for 30 seconds with arms down to side slightly unsteady but no lob gait balance with SBQC 3+/5 and with wheeled walker 4-/5 Therapeutic Exercise Description: Perform therapeutic exercise, progressing as tolerated. Problem:PT Impaired Functional Mobility/Balance Completed see HEP comments documented in this encounter Care Teams Piano Stringer Relationship Specialty Start Date End Date Christine Herzog MD [address] [place] [address] PCP - General Internal Medicine 12/02/21 Trey Pinedo MD [address] [place] [address] [address] [place] [address] Consulting Physician Neurology 05/09/19 Albert Craft MD [address] [place] [address] Consulting Physician Gastroenterology 03/11/22 Chintan Figueroa MD [address] [place] [address] [address] [place] [address] Consulting Physician Hematology and Oncology 03/11/22 Jameel Bloom DPM [address] [place] [address] Consulting Physician Orthotics 03/11/22 Gadiel Genao MD [address] [place] [address] Surgeon Vascular Surgery 03/11/22 Sepideh Hi RN [address] [place] [address] [address] [place] [address] Log Truck Driver 08/12/22 09/01/22 documented as of this encounter
--- OUTSIDE RECORDS SUMMARY | 2024-06-18 18:06 | XMS_ITS | Encounter Summary ---
Author Organization [facility] Address [address] [place] [address] Phone Care Team Providers Care Industrial Ecology Technician Name Role Phone Trey Pinedo MD Unavailable [phone] Christine Herzog MD Primary Care Provide r Albert Craft MD Unavailable [phone] Chintan Figueroa MD Unavailable [phone] Jameel Bloom DPM Unavailable [phone] Gadiel Genao MD Unavailable [phone] Sepideh Hi RN Unavailable [phone] Reason for Visit * Reason Comments Weakness - Generalized * Auth/Cert Specialty Diagnoses / Procedures Referred By Contac t Referred To Contact Referral ID Status Reason Start Date Expiration Date Visits Re quested Visits Authorized [id number] 1 1 Encounter Details Date Type Department Care Team (Late st Contact Info) Description 08/19/2022 9:00 AM AUTOMOBILE TESTER Home Care Visit [facility] Home Health - [address] [place] [address] Marianne Zhang, SAUL PT HOME VISIT Social [...] you attend chur ch or baptism services? Never 08/12/2022 Do you belong to any clubs o r organizations such as restorationist groups, unions, fraternal or athletic groups, or [...] slept in a residential (including now)? 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 AUTOMOBILE TESTER Gender Identity Not on file Sexual Orientation Straight 01/23/2021 10 :16 PM CDT documented as of this encounter Last Filed Vital Signs Vital Sign Reading Time Taken Comments Blood Pressure 138/72 08/19/2022 9:50 AM AUTOMOBILE TESTER Pulse 56 08/19/2022 9:50 AM AUTOMOBILE TESTER Temperature 36.1 ??C (96.9 ??F) 08/19/2022 9:50 AM CS T Respiratory Rate 18 08/19/2022 9:50 AM AUTOMOBILE TESTER Oxygen Saturation 94% 08/19/2022 9:50 AM AUTOMOBILE TESTER Inhaled Oxygen Concentration - - Weight - - Height - - Body Mass Index - - documented in this encounter Miscellaneous Notes * Home Health Visit Narrative - Marianne Zhang PTA - 08/19/2022 9:57 AM CST working with pt today on gait, balance and therapeutic strengthening pt denies pain and not using any pain meds wounds on back are healing well do recommend use of walker vs cane which is more steady for the pt pts son Ian present and all are agreeable with poc MOBILE TESTER documented in this encounter Plan of Treatment Not on file documented as of this encounter Goals Goal Patient Goal Type Associated Problems Recent Progress Patient-Stated? Author GULSHAN General Goal - Patient schedules and keeps appointments with all recommended providers ACO Care Management On track(2022 11:14 AM AUTOMOBILE TESTER) No Sepideh Hi RN Note: Problem: Potential [...] home health visit Disciplines: SN, PT, OT, CHILD'S NURSE, MATRIX WORKER, Skilled Disciplines Monitor patient's vital signs every [...] visit during episode of care Description: Home marketing proposal coordinator to measure vital signs during every home [...] use of safety precautions Completed do recommend use of wheeled walker vs SBQC for safety Assess safety Description: Assess patient safety Problem:Safety [...] or controlled Completed pt has pain meds however states he has not had to use Transfer training Description: Instruct patient/caregiver and perform transfer training. Problem:PT Impaired Functional Mobility/Balance Completed sit to from stand from dining room chair with min asst difficult pt pushing with right hand on the table and left hand on side of chair pt has tendency to sit suddenly cues to lower slowly Home Exercise Program (HEP) Description: Instruct patient/caregiver and perform HEP. Problem:PT Impaired Functional Mobility/Balance Completed while the pt was seated instructed on performing 10-15 reps each of heel toe raises, glut sets, hip abd/add, laqs holding 3 seconds and then hip flexion with knee flexion did have pt sit in dining room chair to perform while standing instructed pt on standing heel toe raises, hip abd/add and hip flexion with knee flexion x 10 reps of each pt will need further instruction on standing exercises so at this time did not issue standing hep but does have seated hep and to perform 2 times each day Gait/Stair Training Description: Instruct patient/caregiver and perform gait/stair training. Problem:PT Impaired Functional Mobility/Balance Completed gait in the home over level surfaces using wheeled walker approx 40 ft pt does exhibit flexion at neck and hips cues to step further into the walker gait with SBQC in the home for approx 50 ft pt is unsteady with cane poor posture flexed at neck and hips decreased stridelength and stepheight on the right sob noted with gait do recommend to use the walker but use the cane when has assist Balance Training/Activities Description: Instruct patient/caregiver and perform balance training activities. Problem:PT Impaired Functional Mobility/Balance Completed working with pt on standing balance and was able to tolerate static stance with arms down to side for one minute pt was fairly steady and then able to reach out front out of base of support x 5 with each arm and no lob staggered stance was slightly more difficult 30 seconds each leg but unsteady and CGA for safety gait balance with cane 3+to 4-/5 and with wheeled walker 4-/5 Therapeutic Exercise Description: Perform therapeutic exercise, progressing as tolerated. Problem:PT Impaired Functional Mobility/Balance Completed see HEP comments documented in this encounter Care Teams Industrial Ecology Technician Relationship Specialty Start Date End Date Christien Herzog MD [address] [place] [address] [address] [place] [address] PCP - General Internal Medicine 12/02/21 Trey Pinedo MD [address] [place] [address] [address] [place] [address] Consulting Physician Neurology 05/09/19 Albert Craft MD [address] [place] [address] [address] [place] [address] Consulting Physician Gastroenterology 03/11/22 Chintan Figueroa MD [address] [place] [address] [address] [place] [address] Consulting Physician Hematology and Oncology 03/11/22 Jameel Bloom DPM [address] [place] [address] Consulting Physician Orthotics 03/11/22 Gadiel Genao MD [address] [place] [address] Surgeon Vascular Surgery 03/11/22 Sepideh Hi RN [address] [place] [address] [address] [place] [address] Bilingual Social Worker 08/12/22 09/01/22 documented as of this encounter
--- OUTSIDE RECORDS SUMMARY | 2024-06-18 18:06 | XMS_ITS | Encounter Summary ---
Author Organization [facility] Address [address] [address] Care Team Providers Care Computer Lab Para Professional Name Role Phone Trey Pinedo MD Unavailable [phone] Christine Herzog MD Primary Care Provide r Albert Craft MD Unavailable [phone] Chintan Figueroa MD Unavailable [phone] Jameel Bloom DPM Unavailable [phone] Gadiel Genao MD Unavailable [phone] Reason for Referral * Diagnostic Imaging (Routine) - Closed Specialty Diagnoses / Procedures Referred By Contac t Referred To Contact Diagnoses Paroxysmal atrial fibrillation (CMS/HCC) (HCC) Bradycardia Pulmonary hypertension (HCC) Biatrial enlargement Nonrheumatic tricuspid valve regurgitation Mixed hyperlipidemia Essential hypertension Coronary artery disease involving [place] coronary artery of [place] heart without angina pectoris Procedures NM MPI SPECT (Rest and/or Stress) Multiple Studies Bijal Galindo MD Phone: tel: fax: [address] [phone] Referral ID Status Reason Start Date Expiration Date Visits Re quested Visits Authorized [id number] Closed 09/06/2022 10/06/2023 1 1 MBLY LINE ROBOT OPERATOR Reason for Visit * Reason Comments Hospital Follow Up Hypertension Hyperlipidemia Encounter Details Date Type Department Care Team (Late st Contact Info) Description 09/06/2022 11:45 AM ASSEMBLY LINE ROBOT OPERATOR Office Visit [facility] Cardiology [address] [facility] [address] [place] [phone] Bijal Galindo MD [address] [place] [address] [address] [place] [address] Paroxysmal atrial fibrillation (CMS/HCC) (HCC) (Primary Dx); Bradycardia; Pulmonary hypertension (CMS/HCC) (HCC); Biatrial enlargement; Nonrheumatic tricuspid valve regurgitation; Mixed hyperlipidemia; Essential hypertension; Coronary artery disease involving [place] coronary artery of [place] heart without angina pectoris Social History Tobacco [...] week 08/12/2022 How often do you attend [facility] or worship services? Never 08/12/2022 Do you belong to any clubs o r organizations such as evangelical groups, unions, fraternal or athletic groups, or [...] slept in a fdc (including now)? 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 ASSEMBLY LINE ROBOT OPERATOR Gender Identity Not on file Sexual Orientation Straight 01/23/2021 10 :16 PM CDT documented as of this encounter Last Filed Vital Signs Vital Sign Reading Time Taken Comments Blood Pressure 130/70 09/06/2022 11:48 AM ASSEMBLY LINE ROBOT OPERATOR Pulse 58 09/06/2022 11:48 AM ASSEMBLY LINE ROBOT OPERATOR Temperature - - Respiratory Rate 16 09/06/2022 11:48 AM ASSEMBLY LINE ROBOT OPERATOR Oxygen Saturation 99% 09/06/2022 11:48 AM ASSEMBLY LINE ROBOT OPERATOR Inhaled Oxygen Concentration - - Weight 80.3 kg (177 lb) 09/06/2022 11:48 AM ASSEMBLY LINE ROBOT OPERATOR Height 170.2 cm (5' 7 ) 09/06/2022 11:48 AM ASSEMBLY LINE ROBOT OPERATOR Body Mass Index 27.72 09/06/2022 11:48 AM ASSEMBLY LINE ROBOT OPERATOR documented in this encounter Ordered Prescriptions Prescription Sig Dispense Quantity Refills Last Filled Start Date End Date metoprolol XL (TOPROL-XL) 25 mg extended release tablet Take 1 tablet (25 mg total) by mouth daily 90 tablet 09/06/2022 09/12/2022 magnesium oxide (MAG-OX) 400 mg (241.3 mg elemental magnesium) tabletIndications: hypomagnesemia Take 1 tablet (400 mg total) by mouth 2 (two) times a day 120 tablet 09/06/2022 09/13/2022 documented in this encounter Progress Notes * Bijal Galindo MD - 09/06/2022 11:45 AM CST Subjective/Objective Patient ID: Villa Zuniga is a 76 y.o. male. Chief Complaint Hospital Follow Up (/), Hypertension, and Hyperlipidemia HPI Mr. Zuniga is a 76-year-old male who returns for hospital follow-up visit who was seen in consultation on 08/06/2022 and a Hospital for bradycardia. He has a known history of TIA in 2019 on Plavix, has a history of bilateral knee replacements and osteoarthritis. In the emergency department he was found to have a heart rate in the 40s. It showed an EKG with heart rate of 48 beats per minute but he was in atrial fibrillation not sinus rhythm was seen in consultation on 08/06/2022. His family noted that he was bradycardic and that is why they brought him to the ER if they regularly check his heart rate. He was incidentally found to be positive for COVID at that time along with his was also hospitalized his blood pressure was stable and was not hypotensive he did have troponins ranging between 21 and 24. His echocardiogram showed [id number] left atrial enlargement, it showed normal left ventricular systolic function with an ejection fraction of 60-65% with normal RV cavity size and function he had trace to mild tricuspid regurgitation with mild pulmonary hypertension with RVsystolic pressure 42 mm Hg with an IVC being dilated mitral inflow consistent with atrial fibrillation. He spontaneously converted to sinus rhythm and had frequent PACs and PVCs as well some ventricular bigeminy. It was felt that the likely cause of his bradycardia being noticed by the family was th e nonconducted PVCs. He did have a chads 2 Vasc score of 4 so he was placed on Eliquis 5 mg p.o. b.i.d. his Plavix was discontinued and he was continued on aspirin therapy. I did restart his metoprolol at 25 mg daily as he had been on 50 mg daily at home. He denies any significant bleeding on Eliquis. He has not had any falls. He has been feeling well since he has been discharged home. He denies any chest pain, shortness of breath or feeling lightheaded. His children dispense his medications heis compliant with his medications. he denies any side effects from his medications. he denies any chest pain, dyspnea, paroxysmal nocturnal dyspnea, orthopnea, presyncope, syncope, palpitations or pedal edema. Current Outpatient Medications: amLODIPine (NORVASC) 2.5 mg [...] for pain, Disp: 10 tablet, Rfl: 0 lisinopriL (PRINIVIL,ZESTRIL) 20 mg tablet, Take 1 tablet (20 mg total) by mouth daily, Disp: 30 tablet, Rfl: [address] (NexIUM) 40 mg capsule, Take 40 mg by mouth daily as needed (Patient not taking: Reported on 09/06/2022), Disp: , Rfl: lidocaine (LIDODERM) 5 %, Place 1 patch on the skin daily Remove & discard patch within 12 hours or as directed by MD. (Patient not taking: Reported on 08/12/2022), Disp: 10 patch, Rfl: 0 magnesium oxide (MAG-OX) 400 mg (241.3 mg elemental magnesium) tablet, Take 1 tablet (400 mg total)by mouth 2 (two) times a day, Disp: 120 tablet, Rfl: 0 metoprolol XL (TOPROL-XL) 25 mg extended release tablet, Take 1 tablet (25 mg total) by mouth daily, Disp: 90 tablet, Rfl: 0 Review of Systems Constitutional: Negative for chills, [...] Negative for confusion and sleep disturbance. BP 130/70 Pulse 58 Resp 16 Ht 170.2 cm (5' 7 ) Wt 80.3 kg (177 lb) SpO2 99% BMI 27.72 kg/m?? Physical Exam Physical Exam: GENERAL APPEARANCE: The patient is in no acute distress. HEAD: Atraumatic, normocephalic. EYES: No scleral icterus. NECK/THYROID: Neck is supple without lymphadenopathy. Carotid pulses 2+, normal carotid upstroke, no carotid bruits. SKIN: No rashes and no jaundice seen. HEART: The rhythm and rate are regular S1 and S2 were auscultated with no murmurs gallops or rubs. LUNGS: Clear to auscultation bilaterally. ABDOMEN: Normal bowel sounds, soft nondistended, no tenderness. EXTREMITIES: No cyanosis, clubbing or edema. NEUROLOGIC: Grossly intact. PSYCH: Alert and oriented x 3. Lab Results Component Value Date CHOL 122 11/02/2021 HDL 41 11/02/2021 LDL 117 03/11/2016 LDLCALC 64 11/02/2021 CHOLHDL 3 11/02/2021 TRIG 85 11/02/2021 SODIUM 142 08/11/2022 POTASSIUM 3.9 08/11/2022 MAGNESIUM 2.3 08/11/2022 CO2 26 08/11/2022 BUNSER 22 08/11/2022 BUN 20 09/15/2016 GLUCOSE 93 08/11/2022 CREATININE 1.10 08/11/2022 CALCIUM 8.3 (L) 08/11/2022 CHLORIDE 108 08/11/2022 ALBUMIN 4.0 08/06/2022 ALT 14 08/06/2022 AST 16 08/06/2022 ALKPHOS 109 08/06/2022 BILITOT 0.4 08/06/2022 PROT 6.4 (L) 08/06/2022 WBC 6.1 08/11/2022 HGB 13.8 08/11/2022 LABPLAT 171 08/11/2022 TSH 1.68 08/06/2022 ECG done on 09/06/2022 revealed Sinus Bradycardia with rate of 54 beats per minute, First degree A-V block - occasional ectopic ventricular beat, Nonspecific QRS widening and anterior fascicular block. Assessment/Plan Diagnoses and all orders for this visit: Paroxysmal atrial fibrillation (CMS/HCC) ([facility]) (I48.0) (Primary) - ECG 12 lead - Lipid panel; Future - Comprehensive metabolic panel; Future - CBC with auto differential; Future - NM MPI SPECT (Rest and/or Stress) Multiple Studies; Future Bradycardia (R00.1) - ECG 12 lead - Lipid panel; Future - Comprehensive metabolic panel; Future - CBC with auto differential; Future - NM MPI SPECT (Rest and/or Stress) Multiple Studies; Future Pulmonary hypertension (CMS/HCC) ([facility]) (I27.20) - Lipid panel; Future - Comprehensive metabolic panel; Future - CBC with auto differential; Future - NM MPI SPECT (Rest and/or Stress) Multiple Studies; Future Biatrial enlargement (I51.7) - Lipid panel; Future - Comprehensive metabolic panel; Future - CBC with auto differential; Future - NM MPI SPECT (Rest and/or Stress) Multiple Studies; Future Nonrheumatic tricuspid valve regurgitation (I36.1) - Lipid panel; Future - Comprehensive metabolic panel; Future - CBC with auto differential; Future - NM MPI SPECT (Rest and/or Stress) Multiple Studies; Future Mixed hyperlipidemia (E78.2) - Lipid panel; Future - Comprehensive metabolic panel; Future - CBC with auto differential; Future - NM MPI SPECT (Rest and/or Stress) Multiple Studies; Future Essential hypertension (I10) - Lipid panel; Future - Comprehensive metabolic panel; Future - CBC with auto differential; Future - NM MPI SPECT (Rest and/or Stress) Multiple Studies; Future Coronary artery disease involving [place] coronary artery of [place] heart without angina pectoris (I25.10) - Lipid panel; Future - Comprehensive metabolic panel; Future - CBC with auto differential; Future - NM MPI SPECT (Rest and/or Stress) Multiple Studies; Future Other orders - magnesium oxide (MAG-OX) 400 mg (241.3 mg elemental magnesium) tablet; Take 1 tablet (400 mg total) by mouth 2 (two) times a day - metoprolol XL (TOPROL-XL) 25 mg extended release tablet; Take 1 tablet (25 mg total) by mouth daily paroxysmal Atrial fibrillation with slow ventricular response occurring on 08/06/2022 in the setting of a patient being on metoprolol succinate 50 mg daily with acute diagnosis of COVID infection. Chads 2 Vasc score of 4, so placed on Eliquis anticoagulation and metoprolol succinate was reduced to 25 mg daily Bradycardia, pulse rate is also confounded by the issue that he is having frequent PVCs in additionto having a slower heart rate. The PVCs do not typically conduct, metoprolol was reduced from 50-25mg daily. Mildly elevated high sensitivity troponin Ts with no significant delta, no evidence of ACS [id number] left atrial enlargement and mild dilated right atrium on echocardiogram done on 08/06/2022 Mild pulmonary hypertension with RV systolic pressure 42 mm Hg on echocardiogram done on 08/06/2022 Trace to mild tricuspid regurgitation by echocardiogram done on 08/06/2022 Active COVID infection, asymptomatic. 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 I will continue his current medical regimen. He remains in sinus rhythm and his blood pressure is now controlled. I will continue his current medical regimen. His I will have him get a fasting lipid profile, complete metabolic profile and a CBC prior to his follow-up visit in 3 months time will set him up for a Lexiscan Myoview stress test prior to his follow-up visit. I asked him return sooner if he has as his cardiac issues or [...] TR jet.Technically difficult study with limited views. MYOVIEW STRESS 08/17/12. REVERSIBLE ISCHEMIA OF THE [...] IN THE DIAGONAL BRANCH OF THE LAD. MBLY LINE ROBOT OPERATOR documented in this encounter Plan of Treatment Not on file documented as of this encounter Goals Goal Patient Goal Type Associated Problems Recent Progress Patient-Stated? Author GULSHAN General Goal - Patient schedules and keeps appointments with all recommended providers ACO Care Management On track(2022 11:14 AM ASSEMBLY LINE ROBOT OPERATOR) Sepideh Guo RN Note: Problem: Potential [...] Date/Time Associated Diagnosis Comments ECG 12-LEAD Routine 09/06/2022 6:42 PM ASSEMBLY LINE ROBOT OPERATOR Paroxysmal atrial fibrillation (CMS/HCC) (HCC) Bradycardia documented in this encounter Results * NM MPI SPECT (Rest and/or Stress) Multiple Studies (11/03/2022 2:30 PM CDT) Anatomical Region Laterality Modality Body N/A Nuclear Medicine 11/03/2022 Narrative 11/09/2022 4:48 PM CDT [employer] Job ID: [id number] [employer] Document ID: [id number] Dictated date/time: [id number] MYOVIEW PORTION OF A [employer] MYOVIEW STRESS TEST DATE OF STUDY 11/03/2022. [...] up to 65%. Job ID/Internal Job ID: ??[id number] us Bijal Galindo MD IMG NM PROCEDURES Final Resu lt * ECG 12 lead (09/06/2022 6:42 PM ASSEMBLY LINE ROBOT OPERATOR) us Bijal Galindo MD ECG ORDERABLES Edited Resul t - Final documented in this encounter Visit Diagnoses Diagnosis Paroxysmal atrial fibrillation (CMS/HCC) (HCC)- Primary Atrial fibrillation Bradycardia Other specified cardiac dysrhythmias Pulmonary hypertension (HCC) 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 Mixed hyperlipidemia Essential hypertension Unspecified essential hypertension Coronary artery disease involving [place] coronary artery of [place] heart without angina pectoris Paroxysmal atrial fibrillation (CMS/HCC) (HCC) Atrial fibrillation Bradycardia Other specified cardiac dysrhythmias Pulmonary hypertension (HCC) 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 Mixed hyperlipidemia Essential hypertension Unspecified essential hypertension Coronary artery disease involving [place] coronary artery of [place] heart without angina pectoris Paroxysmal atrial fibrillation (CMS/HCC) (HCC) Atrial fibrillation Bradycardia Other specified cardiac dysrhythmias Pulmonary hypertension (HCC) 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 Mixed hyperlipidemia Essential hypertension Unspecified essential hypertension Coronary artery disease involving [place] coronary artery of [place] heart without angina pectoris documented in this encounter Discontinued Medications Medication Sig Discontinue Reason Start Date End Da te magnesium oxide (MAG-OX) 400 mg (241.3 mg elemental magnesium) tabletIndications:hypoma gnesemia Take 1 tablet (400 mg total) by mouth 2 (two) times a day Reorder 08/11/2022 09/06/2022 metoprolol XL (TOPROL-XL) 25 mg extended release tablet Take 1 tablet (25 mg total) by mouth daily Reorder 08/12/2022 09/06/2022 documented as of this encounter Additional Health Concerns Infection Onset Date Last Indicated Resolved Time COVID: Recovered Comment:Added based on recent COVID infection. 08/16/2022 08/17/2022 11/14/2022 3:05 AM C DT documented as of this encounter Care Teams Computer Lab Para Professional Relationship Specialty Start Date End Date Christine Herzog MD [address] [facility] [address] PCP - General Internal Medicine 12/02/21 Trey Pinedo MD [address] [place] [address] [address] [place] [address] Consulting Physician Neurology 05/09/19 Albert Craft MD [address] [facility] [address] [place] [address] Consulting Physician Gastroenterology 03/11/22 Chintan Figueroa MD [address] [facility] [address] [place] [address] Consulting Physician Hematology and Oncology 03/11/22 Jameel Bloom DPM [address] [place] [address] Consulting Physician Orthotics 03/11/22 Gadiel Geano MD [address] [place] [address] Surgeon Vascular Surgery 03/11/22 documented as of this encounter
--- OUTSIDE RECORDS SUMMARY | 2024-06-18 18:06 | XMS_ITS | Encounter Summary ---
Author Organization [facility] Address [address] [place] [address] Phone Care Team Providers Care Contact Agent Name Role Phone Trey Pinedo MD Unavailable [phone] Christine Herzog MD Primary Care Provide r Albert Craft MD Unavailable [phone] Chintan Figueroa MD Unavailable [phone] Jameel Bloom DPM Unavailable [phone] Gadiel Genao MD Unavailable [phone] Sepideh Hi RN Unavailable [phone] Reason for Visit * Auth/Cert Specialty Diagnoses / Procedures Referred By Contac t Referred To Contact Referral ID Status Reason Start Date Expiration Date Visits Re quested Visits Authorized [id number] 1 1 Encounter Details Date Type Department Care Team (Late st Contact Info) Description 08/23/2022 1:30 PM MONEY LAUNDERING INVESTIGATOR Home Care Visit [facility] [address] [place] [address] Mary Santana, SUE SN HOME VISIT Social History Tobacco Use Types [...] you attend chur ch or yazidism services? Never 08/12/2022 Do you belong to [...] on file 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 MONEY LAUNDERING INVESTIGATOR Gender Identity Not on file Sexual Orientation Straight 01/23/2021 10 :16 PM CDT documented as of this encounter Last Filed Vital Signs Vital Sign Reading Time Taken Comments Blood Pressure 122/64 08/23/2022 1:59 PM MONEY LAUNDERING INVESTIGATOR Pulse 60 08/23/2022 1:59 PM MONEY LAUNDERING INVESTIGATOR Temperature 36.7 ??C (98.1 ??F) 08/23/2022 1:59 PM CS T Respiratory Rate 18 08/23/2022 1:59 PM MONEY LAUNDERING INVESTIGATOR Oxygen Saturation 100% 08/23/2022 1:59 PM MONEY LAUNDERING INVESTIGATOR Inhaled Oxygen Concentration - - Weight - - Height - - Body Mass Index - - documented in this encounter Plan of Treatment Not on file documented as of this encounter Goals Goal Patient Goal Type Associated Problems Recent Progress Patient-Stated? Author GULSHAN General Goal - Patient schedules and keeps appointments with all recommended providers ACO Care Management On track(2022 11:14 AM MONEY LAUNDERING INVESTIGATOR) No Sepideh Hi RN Note: Problem: Potential [...] Care Plan Visit Details Visit Type -SN Home Visit Discipline -Chcf Problems Problem Description Start Date Status Goals Interve ntions Homebound Status Disciplines: Skilled Disciplines Patient's homebound status 08/13/2022 Active 1 goal linked to scheduled/documen kamala intervention 1 goal intervention scheduled/documen kamala in this visit Medications Disciplines: Chcf Management of home medications 08/13/2022 Active 1 goal linked to scheduled/documen kamala intervention 5 goal interventions scheduled/documen kamala in this visit Monitor patient's vital signs every home health visit Disciplines: SN, PT, OT, ELECTRICAL EQUIPMENT TECHNICIAN, COMPUTER AIDED DESIGN DESIGNER, Skilled Disciplines Monitor patient's vital signs every home health visit. 08/13/2022 Active 1 goal linked to scheduled/documen kamala intervention 1 goal intervention scheduled/documen kamala in this visit Multidisciplinar y Case Conference Disciplines: Skilled Disciplines Concurrently discusses plan of treatment and coordinate patient centered care 08/13/2022 Active 1 goal linked to scheduled/documen [...] end of the episode of care Medications Progressing No Measure vital signs during every home health visit during episode of care Description: Home base filler to measure vital signs during every home [...] signs and symptoms of infection. Infection Prevention Progressing No Demonstrate use of safety precautions Description: [...] Deficit - Other Disease Process and Management Progressing No Report that pain has been reduced [...] Problem:Medications Goal:Understand and follow medication therapy Completed Patients son manages patients medications. Patient states that he does not know what his medications are. Reviewed Metoprolol- indications, s/e, Instruct on high risk medications Description: Instruct patient/caregiver on high-risk/high-alert medications, including: anti-convulsant, anti-retroviral, anti-coagulant, chemotherapeutic, hypo-glycemic, immunosuppressant, insulin, and opioid. Problem:Medications Goal:Understand and follow medication therapy Completed Discussed with patient possible s/e of bruising associated with eliquis. Patient denies any concerns at this time Instruct on medication delivery system Description: Instruct patient/caregiver on medication delivery system. Keep up to date medication list with patient Problem:Medications Goal:Understand and follow medication therapy Completed Patient's sons management medications. Has a system for patient. Instruct on medication side effects Description: Instruct [...] health visit during episode of care Completed Case Conference Description: Care team discuss plan of treatment on a continual basis to provide multidisciplinary team approach to care Problem:Multidiscip linary Case Conference Goal:Care team will coordinate care Completed Educate Patient on Infection Prevention [...] been reduced or controlled Completed Denies pain at todays visit. No interventions required documented in this encounter Care Teams Contact Agent Relationship Specialty Start Date End Date Christine Herzog MD [address] [facility] [address] [place] [address] PCP - General Internal Medicine 12/02/21 Trey Pinedo MD [address] [facility] [address] [place] [address] Consulting Physician Neurology 05/09/19 Albert Craft MD [address] [facility] [address] [place] [address] Consulting Physician Gastroenterology 03/11/22 Chintan Figueroa MD [address] [place] [address] [address] [place] [address] Consulting Physician Hematology and Oncology 03/11/22 Jameel Bloom DPM [address] [place] [address] Consulting Physician Orthotics 03/11/22 Gadiel Genao MD [address] [place] [address] Surgeon Vascular Surgery 03/11/22 Sepideh Hi RN [address] [place] [address] [address] [place] [address] Channel Lip Stiffener Insoles 08/12/22 09/01/22 documented as of this encounter
--- OUTSIDE RECORDS SUMMARY | 2024-06-18 18:06 | XMS_ITS | Encounter Summary ---
Author Organization [facility] Address [address] [place] [address] Care Team Providers Care Senior Software Qa Analyst Name Role Phone Trey Pinedo MD Unavailable [phone] Christine Herzog MD Primary Care Provide r Albert Craft MD Unavailable [phone] Chintan Figueroa MD Unavailable [phone] Jameel Bloom DPM Unavailable [phone] Gadiel Genao MD Unavailable [phone] Sepideh Hi RN Unavailable Encounter Details Date Type Department Care Team (Late st Contact Info) Description 08/18/2022 Telephone [facility] Primary Care at [place] [address] [place] [address] Christine Herzog MD [address] [place] [address] [address] [place] [address] Social History Tobacco Use Types Packs/Day Years Used Date Smoking Tobacco: Former Cigarettes 0.5 50 1 9 - 2008 Smokeless Tobacco: Never Alcohol Use Standard Drinks/Week [...] often do you attend chur ch or mosque services? Never 08/12/2022 Do you belong to [...] a care home (including now)? 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 INED PARTS METAL SPRAYER * Telephone Encounter - Christine Herzog MD - 08/19/2022 10:58 AM MACHINED PARTS METAL SPRAYER Noted. Let patient know that these are important to be certain that everything is updated in the chart. INED PARTS METAL SPRAYER * Telephone Encounter - Fariba Thompson - 08/19/2022 10:45 AM CST Fyi to dr baez-see message below. thanks INED PARTS METAL SPRAYER * Telephone Encounter - Rach Flores - 08/18/2022 9:43 AM CST Appointment Cancellation Appt date/time:08/19/2022 Reason for appt:GULSHAN Reason for cxl:My chart NOV:2021 MARK:03/10/2022 # of cxl or no shows in last year:2 cxl Controlled Rx: Per patient unable to make the appointment. Has been seen by Home Health twice this week. He is recovering from Covid well. INED PARTS METAL SPRAYER documented in this encounter Plan of Treatment Not on file documented as of this encounter Goals Goal Patient Goal Type Associated Problems Recent Progress Patient-Stated? Author GULSHAN General Goal - Patient schedules and keeps appointments with all recommended providers ACO Care Management On track(2022 11:14 AM MACHINED PARTS METAL SPRAYER) Sepideh Guo, SUE Note: Problem: Potential for [...] as of this encounter Care Teams Senior Software Qa Analyst Relationship Specialty Start Date End Date Christine Herzog MD [address] [facility] [address] [place] [address] PCP - General Internal Medicine 12/02/21 Trey Pinedo MD [address] [place] [address] [address] [place] [address] Consulting Physician Neurology 05/09/19 Albert Craft MD [address] [place] [address] [place] [address] Consulting Physician Gastroenterology 03/11/22 Chintan Figueroa MD [address] [place] [address] [place] [address] Consulting Physician Hematology and Oncology 03/11/22 Jameel Bloom DPM [address] [place], [place] [address], [place] [address] Consulting Physician Orthotics 03/11/22 Gadiel Genao MD [address] [place] [address] Surgeon Vascular Surgery 03/11/22 Sepideh Hi RN [address] [place] [address] [address] [place] [address] Supervisor Inspecting 08/12/22 09/01/22 documented as of this encounter
--- OUTSIDE RECORDS SUMMARY | 2024-06-18 18:06 | XMS_ITS | Encounter Summary ---
Author Organization [facility] Address [address] [place] [address] Care Team Providers Care Medication Coordinator Name Role Phone Trey Pinedo MD Unavailable [phone] Christine Herzog MD Primary Care Provide r Albert Craft MD Unavailable [phone] Chintan Figueroa MD Unavailable [phone] Jameel Bloom DPM Unavailable [phone] Gadiel Genao MD Unavailable [phone] Reason for Visit * Reason Comments Fall Encounter Details Date Type Department Care Team (Late st Contact Info) Description 09/16/2022 7:45 AM CDT - 09/16/2022 9:06 AM CDT Emergency [address] [address] Saleem Garber MD [address] [place] [address] [address] [place] [address] Skin tear of hand without complication, right, initial encounter (Primary Dx); Fall, initial encounter; Need for vaccination with combined pzafyvoeng-jnpieec-rm rtussis (DTaP) Discharge Disposition: Discharge to home or self [...] on file 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 Gender Identity Not on file Sexual Orientation Straight 01/23/2021 10 :16 PM CDT documented as of this encounter Last Filed Vital Signs Vital Sign Reading Time Taken Comments Blood Pressure 165/80 09/16/2022 9:05 AM CDT Pulse 94 09/16/2022 9:05 AM CDT Temperature 36.4 ??C (97.6 ??F) 09/16/2022 6:55 AM CD T Respiratory Rate 16 09/16/2022 9:05 AM CDT Oxygen Saturation 97% 09/16/2022 9:05 AM CDT Inhaled Oxygen Concentration - - Weight 77.1 kg (170 lb) 09/16/2022 6:55 AM CDT Height 170.2 cm (5' 7 ) 09/16/2022 6:55 AM CDT Body Mass Index 26.63 09/16/2022 6:55 AM CDT documented in this encounter Discharge Instructions * Discharge Instructions* Saleem Garber MD - 09/16/2022 8:22 AM CDT The X ray did not show any broken bone. You may gently cleanse the area with soap and water twice daily (or as needed). Otherwise, keep the area clean and dry, and dressed with a non-adherent dressing. For pain you may take 2 tylenol every 4-6 hours as needed. Do not take ibuprofen / motrin or naproxen / aleve because you are on a blood thinner and this could increase the risk of bleeding. Follow-up with your primary care provider. If you develop bleeding, apply direct pressure for atleast 10 minutes. Return to the emergency department for persistent bleeding, pus from the wound, increased swelling, or for other concern. * Attachments The following attachments cannot be sent through Care Everywhere. * Skin Tear (AfterCare(R) Instructions(ER/ED)) (Gambian) documented in this encounter Medications at Time of Discharge aspirin 81 mg tablet Take one by mouth one time per day 0 0 06/27/2008 amLODIPine (NORVASC) 2.5 mg tablet Take 1 tablet (2.5 mg total) by mouth daily 30 tablet 1 08/12/2022 3 apixaban (ELIQUIS) 5 mg tabletIndications: atrial fibrillation Take 1 tablet (5 mg total) by mouth 2 (two) times a day 60 tablet 1 08/11/2022 3 atorvastatin (LIPITOR) 40 mg tablet Take 1 tablet (40 mg total) by mouth daily 90 tablet 1 06/06/[address] (NexIUM) 40 mg capsule Take 40 mg by mouth daily as needed 3 finasteride (PROSCAR) 5 mg tabletIndications: benign prostatic hyperplasia with lower urinary tract sx Take 1 tablet (5 mg total) by mouth daily 90 tablet 3 11/05/2021 3 HYDROcodone-acetam inophen (NORCO) 5-325 mg per tabletIndications: Pain Take 1 tablet by mouth every 4 (four) hours as needed for pain 10 tablet 08/11/2022 3 lidocaine (LIDODERM) 5 % Place 1 patch on the skin daily Remove & discard patch within 12 hours or as directed by MD. 10 patch 08/12/2022 3 lisinopriL (PRINIVIL,ZESTRIL) 20 mg tablet Take 1 tablet (20 mg total) by mouth daily 30 tablet 1 08/11/2022 3 magnesium oxide (MAG-OX) 400 mg (241.3 mg elemental magnesium) tabletIndications: hypomagnesemia Take 1 tablet (400 mg total) by mouth 2 (two) times a day 180 tablet 1 09/13/2022 3 metoprolol XL (TOPROL-XL) 25 mg extended release tablet TAKE 1 TABLET BY MOUTH DAILY 90 tablet 1 09/12/2022 3 documented as of this encounter Discharge Disposition Disposition Code Departure Means Destination Comment s Discharge to home or self care documented in this encounter ED Notes * Saleem Garber MD - 09/16/2022 8:15 AM CDT HPI Chief Complaint Patient presents with Fall Patient presents for right hand injury following accedental fall. He is on chronic anticoagulation.States he was getting up from comode and accidentally fell. No preceding Sx. No head strike, BOGGS, LOC, neck pain, or other injury. Hemostasis achieved w/ direct pressure. 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 Patient History: Patient Active Problem List Diagnosis Date Noted Pulmonary hypertension (CMS/HCC) ([facility]) 09/06/2022 Biatrial enlargement 09/06/2022 Paroxysmal atrial fibrillation (CMS/HCC) ([facility]) 09/06/2022 Bradycardia 08/06/2022 Cognitive decline 04/19/2022 Hospital discharge follow-up 12/15/2021 Dizziness 12/15/2021 Elevated brain natriuretic peptide (BNP) level Generalized weakness 12/09/2021 Closed fracture of one rib of right side 12/08/2021 Closed fracture of one rib of right side, initial encounter 12/08/2021 Obstructive sleep apnea 03/02/2021 Hypersomnia 01/28/2021 Mayo's esophagus with dysplasia 11/12/2019 Type 2 diabetes mellitus with hyperlipidemia ([facility]) 10/25/2019 Cerebrovascular arteriosclerosis 05/20/2019 Bilateral carotid artery disease (CMS/HCC) ([facility]) 05/20/2019 TIA (transient ischemic attack) 05/08/2019 History of noncompliance with medical treatment 05/08/2019 History of colon polyps 11/17/2018 Bladder stones 2017 Coronary artery disease involving north fork 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 2017 Chronic GERD 2017 Polycythemia 07/07/2017 Sensorineural hearing loss, bilateral 05/05/2017 Benign prostatic hyperplasia with lower urinary tract symptoms 12/26/2016 Essential hypertension 12/26/2016 Medicare annual wellness visit, subsequent 12/26/2016 Kidney stones 12/26/2016 Hyperlipidemia 11/16/2013 Past Medical History: Diagnosis Date Mayo esophagus [...] tobacco: Never Tobacco comments: Quit in 2009 Vaping Use Vaping Use: Never used Substance and Sexual Activity Alcohol use: No Drug use: No Sexual activity: Not Currently Partners: Female control/protection: None Social History Social History Narrative Not on file Review of Systems Review of Systems Constitutional: Negative for chills and fever. Respiratory: Negative for cough and shortness of breath. Cardiovascular: Negative for chest pain and palpitations. Gastrointestinal: Negative for abdominal pain. Musculoskeletal: Negative for back pain and neck pain. Skin: Positive for wound. Neurological: Negative for dizziness and headaches. Psychiatric/Behavioral: Negative for confusion. All other systems reviewed and are negative. Physical Exam ED Triage Vitals [09/16/22 0655] Temp Pulse Resp BP SpO2 36.4 ??C (97.6 ??F) 120 18 170/81 97 % Temp src Heart Rate Source Patient Position BP Location FiO2 (%) Oral Monitor -- Left arm -- Height Height Method Weight Weight Method 1.702 m (5' 7 ) Stated 77.1 kg (170 lb) Stated Physical Exam Vitals and nursing note reviewed. Constitutional: General: He is not in acute distress. HENT: Head: Normocephalic and atraumatic. Nose: Nose normal. Mouth/Throat: Mouth: Mucous membranes are moist. Eyes: Extraocular Movements: Extraocular movements intact. Cardiovascular: Rate and Rhythm: Tachycardia present. Pulses: Normal pulses. Heart sounds: Normal heart sounds. Pulmonary: Effort: Pulmonary effort is normal. Breath sounds: Normal breath sounds. Abdominal: General: Abdomen is flat. Bowel sounds are normal. Palpations: Abdomen is soft. Musculoskeletal: General: Signs of injury (skin tear right hand) present. Cervical back: Neck supple. Skin: General: Skin is warm and dry. Capillary Refill: Capillary refill takes less than 2 seconds. Neurological: Mental Status: He is alert. Mental status is at baseline. Psychiatric: Mood and Affect: Mood normal. Behavior: Behavior normal. Thought Content: Thought content normal. Judgment: Judgment normal. MDM NIH Score Medical Decision Making DDx skin tear, laceration, fracture, contusion, sprain Amount and/or Complexity of Data Reviewed Independent Historian: caregiver Details: family at bedside Radiology: ordered. Decision-making details documented in ED Course. Risk OTC drugs. Prescription drug management. Decision regarding hospitalization. ED Course as of 09/16/22822 Time: 09/16 808 Value: XR Hand Right 3 or More Views Comment: Marked soft tissue swelling along the dorsum of the hand. No definite fracture seen. Significant degenerative changes as above. By: Saleem Garber MD Time: 09/16 813 Comment: Hemostasis achieved. Wound not amenable to sutures. Stable for discharge after analgesia and boostrix. By: Saleem Garber MD Time: 09/16 822 Comment: DC / Follow-up instructions The X ray did not show any broken bone. You may gently cleanse the area with soap and water twice daily (or as needed). Otherwise, keep the area clean and dry, and dressed with a non-adherent dressing. For pain you may take 2 tylenol every 4-6 hours as needed. Do not take ibuprofen / motrin or naproxen / aleve because you are on a blood thinner and this could increase the risk of bleeding. Follow-up with your primary care provider. If you develop bleeding, apply direct pressure for atleast 10 minutes. Return to the emergency department for persistent bleeding, pus from the wound, increased swelling, or for other concern. By: Saleem Garber MD Final diagnoses: Fall, initial encounter Skin tear of hand without complication, right, initial encounter Need for vaccination with combined waewsqttey-qgsnnwb-vdbmrjgas (DTaP) Saleem Garber MD 09/16/22 08 * Anne Gallagher RN - 09/16/2022 7:18 AM CDT Skin tear with hematoma observed to right posterior hand. Dressing applied. * Anne Gallagher RN - 09/16/2022 7:00 AM CDT Patient c/o fall this morning. Patient states I just lost my balance and fell over and hurt my hand. Patient reports right hand injury. No additional complaints. No LOC. Currently on blood thinners. Bleeding controlled at this time. documented in this encounter Plan of Treatment Not on file documented as of this encounter Goals Goal Patient Goal Type Associated Problems Recent Progress Patient-Stated? Author GULSHAN General Goal - Patient schedules and keeps appointments with all recommended providers ACO Care Management On track(2022 11:14 AM DEVULCANIZER TENDER) Sepideh Guo, SUE Note: Problem: Potential [...] HAND RIGHT 3 OR MORE VIEWS ED 09/16/2022 7:40 AM CDT documented in this encounter Results * XR Hand Right 3 or More Views (09/16/2022 7:40 AM CDT) Anatomical Region Laterality Modality Upper Extremities, Hand Right Computed Radiography 09/16/2022 7:52 AM CDT Narrative 09/16/2022 8:04 AM CDT EXAM DESCRIPTION: ?? XR HAND RIGHT 3 OR MORE VIEWS REASON FOR STUDY: ?? accidental fall ?? Pt states he fell this morning, has bruising and some small lacs ??Over the top of his hand ?? TECHNIQUE: Frontal, lateral and oblique ??radiographic views acquired of the right hand. COMPARISON: ?? Right hand radiographs 10/15/2016 FINDINGS: BONES/JOINTS: ?? No definite acute fracture or dislocation. ?Severe degenerative changes of the 1st metacarpophalangeal joint. ??Significant degenerative change also present at the 1st carpometacarpal joint and the triscaphe joint. ??Fibc-rv-livraclr 1st interphalangeal and 2nd through 5th distal interphalangeal degeneration. SOFT TISSUES: ?? Marked soft tissue swelling along the dorsum of the hand. ?? Severe atherosclerotic calcifications. OTHER: ?? No other significant finding. IMPRESSION: ?? Marked soft tissue swelling along the dorsum of the hand. ??No definite fracture seen. ??Significant degenerative changes as above. THIS IS AN ELECTRONICALLY VERIFIED FINAL REPORT 09/16/2022 8:04 AM - Electronically signed by ??Albino Bell M.D. D: ??09/16/2022 8:04 AM T: Report ID: [id number] Reading Location: ??[id number] Procedure Note Albino Bell MD - 09/16/2022 EXAM DESCRIPTION: XR HAND RIGHT 3 OR MORE VIEWS REASON FOR STUDY: accidental fall Pt states he fell this morning, has bruising and some small lacs Over thetop of his hand TECHNIQUE: Frontal, lateral and oblique radiographic views acquired ofthe right hand. COMPARISON: Right hand radiographs 10/15/2016 FINDINGS: BONES/JOINTS: No definite acute fracture or dislocation.Severe degenerative changes of the 1st metacarpophalangeal joint. Significant degenerative change also present at the 1st carpometacarpal joint and the triscaphe joint. Adts-gw-srtfhzzg 1st interphalangeal and 2nd through 5th distal interphalangeal degeneration. SOFT TISSUES: Marked soft tissue swelling along the dorsum of the hand. Severe atherosclerotic calcifications. OTHER: No other significant finding. IMPRESSION: Marked soft tissue swelling along the dorsum of the hand.No definite fracture seen. Significant degenerative changes as above. THIS IS AN ELECTRONICALLY VERIFIED FINAL REPORT 09/16/2022 8:04 AM - Electronically signed by Albino Bell M.D. BC T: Report ID: [id number] Reading Location: [place] [address] Saleem Garber MD IMG XR PROCEDURES Final Re sult documented in this encounter Visit Diagnoses Diagnosis Skin tear of hand without complication, right, initial encounter- Primary Fall, initial encounter Need for vaccination with combined obghgsmuna-hhlulin-xzjzelqqr (DTaP) Need for prophylactic vaccination with combined jhhtbjwesw-xdpotxu-gzfnaluhe (DTP) vaccine documented in this encounter Administered Medications Inactive Administered Medications - up to 3 most recent administrations Medication Order MAR Action Action Date Dose Rate Site acetaminophen (TYLENOL) tablet 975 mg 975 mg (rounded from 1,000 mg), oral, Once, On Mon09/16/22 at 0815, For 1 dose Given 09/16/2022 8:39 AM CDT 975 mg documented in this encounter Active and Recently Administered Medications Times are shown in CDT. Scheduled Medication Order 09/14/2022 09/15/2022 09/16/2022 acetaminophen (TYLENOL) tablet 975 mg (COMPLETED) 975 mg (rounded from 1,000 mg), oral, Once, On Mon09/16/22 at 0815, For 1 dose 0839 (Given - Provid er: Uli Reynoso RN) documented in this encounter Orders Medications Ordered That Reg ht Not Have Been Administered Count Last Ordered Date First Ordered Date acetaminophen (TYLENOL) tablet 975 mg 1 Nursing Count Last Ordered Date First Orde red Date ED NURSING ORDER 1 09/16/2022 documented in this encounter Additional Health Concerns Infection Onset Date Last Indicated Resolved Time COVID: Recovered Comment:Added based on recent COVID infection. 08/16/2022 08/17/2022 11/14/2022 3:05 AM C DT documented as of this encounter Care Teams Medication Coordinator Relationship Specialty Start Date End Date Christine Herzog MD [address] [facility] [address] [place] [address] PCP - General Internal Medicine 12/02/21 Trey Pinedo MD [address] [facility] [address] [place] [address] Consulting Physician Neurology 05/09/19 Albert Craft MD [address] [facility] [address] [place] [address] Consulting Physician Gastroenterology 03/11/22 Chintan Figueroa MD [address] [facility] [address] [place] [address] Consulting Physician Hematology and Oncology 03/11/22 Jameel Bloom DPM [address] [place] [address] Consulting Physician Orthotics 03/11/22 Gadiel Genao MD [address] [place] [address] Surgeon Vascular Surgery 03/11/22 documented as of this encounter
--- OUTSIDE RECORDS SUMMARY | 2024-06-18 18:06 | XMS_ITS | Encounter Summary ---
Author Organization [facility] Home Care Servic es Address [address] [place] [address] Phone Care Team Providers Care Inventory Assistant Name Role Phone Trey Pinedo MD Unavailable [phone] Christine Herzog MD Primary Care Provide r Albert Craft MD Unavailable [phone] Chitnan Figueroa MD Unavailable [phone] Jameel Bloom DPM Unavailable [phone] Gadiel Genao MD Unavailable [phone] Sepideh Hi RN Unavailable [phone] Reason for Visit * Reason Comments Gait Problem * Auth/Cert Specialty Diagnoses / Procedures Referred By Contac t Referred To Contact Referral ID Status Reason Start Date Expiration Date Visits Re quested Visits Authorized [id number] 1 1 Encounter Details Date Type Department Care Team (Late st Contact Info) Description 09/01/2022 9:00 AM VEST BUSHELER Home Care Visit [facility] Home Health - [address] [place] [address] Marianne Zhang, SAUL PT HOME VISIT Social [...] often do you attend chur ch or hindu services? Never 08/12/2022 Do you belong to any clubs o r organizations such as mormon groups, unions, fraternal or athletic groups, or [...] slept in a fci (including now)? 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 VEST BUSHELER Gender Identity Not on file Sexual Orientation Straight 01/23/2021 10 :16 PM CDT documented as of this encounter Last Filed Vital Signs Vital Sign Reading Time Taken Comments Blood Pressure 150/88 09/01/2022 9:49 AM VEST BUSHELER Pulse 101 09/01/2022 9:49 AM VEST BUSHELER Temperature 36.4 ??C (97.5 ??F) 09/01/2022 9:49 AM CS T Respiratory Rate 18 09/01/2022 9:49 AM VEST BUSHELER Oxygen Saturation 97% 09/01/2022 9:49 AM VEST BUSHELER Inhaled Oxygen Concentration - - Weight - - Height - - Body Mass Index - - documented in this encounter Miscellaneous Notes * Home Health Visit Narrative - Marianne Zhang PTA - 09/01/2022 10:02 AM CST spoke with pts son and pt and his will be moving in with son this weekend so will transition to the [facility] team pts address will be [address] [place] [address] will live there with son about 2-3 months then move to [place] where son is having a new house built pt cont to use the cane however do recommend to use the walker due to safety with walker and slightly unsteady with cane pt does need cues to complete HEP son with present assists the pt as needed. next visit sup visit do recommend cont P.T to work with pt on gait, transfers and balance also on safety awareness update to care team BUSHELER documented in this encounter Plan of Treatment Not on file documented as of this encounter Goals Goal Patient Goal Type Associated Problems Recent Progress Patient-Stated? Author GULSHAN General Goal - Patient schedules and keeps appointments with all recommended providers ACO Care Management On track(2022 11:14 AM VEST BUSHELER) Sepideh Guo, SUE Note: Problem: Potential for [...] home health visit Disciplines: SN, PT, OT, TUBULAR RIVETER, ART MUSEUM AIDE, Skilled Disciplines Monitor patient's vital signs every [...] visit during episode of care Description: Home substance abuse clinician to measure vital signs during every home [...] controlled Completed pt has pain meds but is not taking any at this time Transfer training Description: Instruct patient/caregiver and perform transfer training. Problem:PT Impaired Functional Mobility/Balance Completed working on sit to from stand various surface and pt does have difficulty pushing himself up cues to flex knees back to chair and then lean forward as pushing up has tendency to drop into the chair cues to reach back and lower slowly repeatd sit to from stand x 5 reps with mod difficulty Home Exercise Program (HEP) Description: Instruct patient/caregiver and perform HEP. Problem:PT Impaired Functional Mobility/Balance Completed while the pt was standing progressed to 15 reps of each including heel toe raises, hip abd/add, hip flexion with knee flexion, hamstring curls and hip extension pt balances with arms on the counter and supervision cues to complete correctly repeated sit to from stand x 5 reps seated strengthening x 15 reps including heel toe raises, hip abd/add, laqs holding 3 seconds, glut sets and hip flexion with knee flexion pt has written hep of all exercises Gait/Stair Training Description: Instruct patient/caregiver and perform gait/stair training. Problem:PT Impaired Functional Mobility/Balance Completed gait with SBQC in the home approx 80 ft pt is slightly unsteady and constant cues for sequencing and placement of cane tends to place close to the right foot decreased trunk movment and hip flexion with knee flexion gait with wheeled walker with less assistance cues to improve posture 60 ft with walker up and down side steps of home using handrail and cane and min asst 3 steps Balance Training/Activities Description: Instruct patient/caregiver and perform balance training activities. Problem:PT Impaired Functional Mobility/Balance Completed instructed pt on standing balance activities and today pt able to stand for 2 minutes with arms down to side and narrow base of support pt wavers slightly but no lob reaching out of base of support forward and then out to side pt exhibits decreased weight shift and neck rotation to the left staggered stance each leg for 30 seconds with arms down to side pt unsteady but no lob CGA standing with eyes closed for 30 seconds arms down to side and feet shoulder width apart pt is unsteady CGA to min asst for pts balance gait balance with cane 3+/5 and with wheeled walker 4/5 Therapeutic Exercise Description: Perform therapeutic exercise, progressing as tolerated. Problem:PT Impaired Functional Mobility/Balance Completed see HEP comments documented in this encounter Care Teams Inventory Assistant Relationship Specialty Start Date End Date Christine Herzog MD [address] [facility] [address] [place] [address] PCP - General Internal Medicine 12/02/21 Trey Pinedo MD [address] [facility] [address] [place] [address] Consulting Physician Neurology 05/09/19 Albert Craft MD [address] [place] [address] [address] [place] [address] Consulting Physician Gastroenterology 03/11/22 Chintan Figueroa MD [address] [place] [address] [address] [place] [address] Consulting Physician Hematology and Oncology 03/11/22 Jameel Bloom DPM [address] [place] [address] Consulting Physician Orthotics 03/11/22 Gadiel Genao MD [address] [place] [address] Surgeon Vascular Surgery 03/11/22 Sepideh Hi RN [address] [place] [address] [address] [place] [address] Supervisor Plasma 08/12/22 09/01/22 documented as of this encounter
--- OUTSIDE RECORDS SUMMARY | 2024-06-18 18:06 | XMS_ITS | Encounter Summary ---
Author Organization [facility] Home Care Servic es Address [address] [place] [address] Phone Care Team Providers Care Cinder Crane Operator Name Role Phone Trey Pinedo MD Unavailable [phone] Christine Herzog MD Primary Care Provide r Albert Craft MD Unavailable [phone] Chintan Figueroa MD Unavailable [phone] Jameel Bloom DPM Unavailable [phone] Gadiel Genao MD Unavailable [phone] Sepideh Hi RN Unavailable [phone] Reason for Visit * Auth/Cert Specialty Diagnoses / Procedures Referred By Contac t Referred To Contact Referral ID Status Reason Start Date Expiration Date Visits Re quested Visits Authorized [id number] 1 1 Encounter Details Date Type Department Care Team (Late st Contact Info) Description 08/26/2022 11:30 AM RADIO DISC JOCKEY Home Care Visit [facility] [address] [place] [address] Mary Santana, SUE SN HOME VISIT Social [...] any clubs o r organizations such as holiness groups, unions, fraternal or athletic groups, or [...] on file 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 RADIO DISC JOCKEY Gender Identity Not on file Sexual Orientation Straight 01/23/2021 10 :16 PM CDT documented as of this encounter Last Filed Vital Signs Vital Sign Reading Time Taken Comments Blood Pressure 120/70 08/26/2022 11:45 AM RADIO DISC JOCKEY Pulse 58 08/26/2022 11:45 AM RADIO DISC JOCKEY Temperature 36.5 ??C (97.7 ??F) 08/26/2022 11:[address] Respiratory Rate 18 08/26/2022 11:45 AM RADIO DISC JOCKEY Oxygen Saturation 100% 08/26/2022 11:45 AM RADIO DISC JOCKEY Inhaled Oxygen Concentration - - Weight - - Height - - Body Mass Index - - documented in this encounter Miscellaneous Notes * Home Health Plan for Next Visit - Mary Santana RN - 08/26/2022 11:37 AM CST Reason for today's visit - assessment and education of c/p status. Discuss plan of care with patient and son Discharge planning- patient will be discharged from home health when goals are met or maximized Plan for next visit - Discharge from fci discipline. Physical Therapy will continue to follow patient in the home O DISC JOCKEY documented in this encounter Plan of Treatment Not on file documented as of this encounter Goals Goal Patient Goal Type Associated Problems Recent Progress Patient-Stated? Author GUSLHAN General Goal - Patient schedules and keeps appointments with all recommended providers ACO Care Management On track(2022 11:14 AM RADIO DISC JOCKEY) No Sepideh Hi RN Note: Problem: Potential [...] Details Visit Type -SN Home Visit Discipline -Long Term Problems Problem Description Start Date Status Goals Interve ntions Homebound Status Disciplines: Skilled Disciplines Patient's homebound status 08/13/2022 Active 1 goal linked to scheduled/documen kamala intervention 1 goal intervention scheduled/documen kamala in this visit Medications Disciplines: Long Term Management of home medications 08/13/2022 Active 1 goal linked to scheduled/documen kamala intervention 2 goal interventions scheduled/documen kamala in this visit Monitor patient's vital signs every home health visit Disciplines: SN, PT, OT, PERMANENT WAVER, VICE PRESIDENT OF ENGINEERING, Skilled Disciplines Monitor patient's vital signs every home health visit. 08/13/2022 Active 1 goal linked to scheduled/documen kamala intervention 1 goal intervention scheduled/documen kamala in this visit Multidisciplinar y Case Conference Disciplines: Skilled Disciplines Concurrently discusses plan of treatment and coordinate patient centered care 08/13/2022 Active 1 goal linked to scheduled/documen kamala intervention Infection Prevention Disciplines: Skilled Disciplines Infection [...] visit during episode of care Description: Home cdl dedicated truck driver to measure vital signs during every home [...] assistance of another to leave home safely due to poor unsteady gait. Becomes fatigued with activity. Instruct medications Description: Instruct patient/caregiver in medication administration, purpose, dosages, preparation, scheduling, side effects, food/drug interactions, storage, drug allergies, and potential complications. Problem:Medications Goal:Understand and follow medication therapy Completed Instruct on medication delivery system Description: Instruct patient/caregiver on medication delivery system. Keep up to date medication list with patient Problem:Medications Goal:Understand and follow medication therapy Completed son manages patients medications Monitor Vital Signs Description: Monitor blood pressure, [...] and Management Goal:Understanding of disease process Completed Reviewed precautions related to bradycardia - increased risk for falls, weakness. Notification of Complications Description: Instruct patient/caregiver when to notify SN/MD of complications Problem:Knowledge Deficit - Other Disease Process and Management Goal:Understanding of disease process Completed Instruct on pain management techniques Description: Instruct in pharmacologic and nonpharmacologic pain management techniques. Problem:Pain Goal:Report that pain has been reduced or controlled Completed Denies any pain issues. No interventions required documented in this encounter Care Teams Cinder Crane Operator Relationship Specialty Start Date End Date Christine Herzog MD [address] [place] [address] [address] [place] [address] PCP - General Internal Medicine 12/02/21 Trey Pinedo MD [address] [place] [address] [address] [place] [address] Consulting Physician Neurology 05/09/19 Albert Craft MD [address] [place] [address] [address] [place] [address] Consulting Physician Gastroenterology 03/11/22 Chintan Figueroa MD [address] [place] [address] [address] [place] [address] Consulting Physician Hematology and Oncology 03/11/22 Jameel Bloom DPM [address] [place] [address] Consulting Physician Orthotics 03/11/22 Gadiel Genao MD [address] [place] [address] Surgeon Vascular Surgery 03/11/22 Sepideh Hi RN [address] [place] [address] [address] [place] [address] Warp Placer 08/12/22 09/01/22 documented as of this encounter
--- OUTSIDE RECORDS SUMMARY | 2024-06-18 18:06 | XMS_ITS | Encounter Summary ---
Author Organization [facility] Home Care Servic es Address [address] [place] [address] Phone Care Team Providers Care Media Developer Name Role Phone Trey Pinedo MD Unavailable [phone] Christine Herzog MD Primary Care Provide r Albert Craft MD Unavailable [phone] Chintan Figueroa MD Unavailable [phone] Jameel Bloom DPM Unavailable [phone] Gadiel Genao MD Unavailable [phone] Sepideh Hi RN Unavailable [phone] Reason for Visit * Auth/Cert Specialty Diagnoses / Procedures Referred By Contac t Referred To Contact Referral ID Status Reason Start Date Expiration Date Visits Re quested Visits Authorized [id number] 1 1 Encounter Details Date Type Department Care Team (Late st Contact Info) Description 08/13/2022 Home Care Visit [facility] Home Health - [address] [place] [address] Rosario Rowland, RN SBAR-START OF CARE/RESUMPTION Social History Tobacco Use Types Packs/Day Years [...] you attend chur ch or zoroastrianism services? Never 08/12/2022 Do you belong to [...] on file 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 MEDICAL APPLIANCE MAKER Gender Identity Not on file Sexual Orientation Straight 01/23/2021 10 :16 PM CDT documented as of this encounter Plan of Treatment Not on file documented as of this encounter Goals Goal Patient Goal Type Associated Problems Recent Progress Patient-Stated? Author GULSHAN General Goal - Patient schedules and keeps appointments with all recommended providers ACO Care Management On track(2022 11:14 AM MEDICAL APPLIANCE MAKER) Sepideh Guo RN Note: Problem: Potential [...] eye protection or goggles. Precautions 08/16/22. Contact Manager Freelance if patient worsens. SUE Baldwin 08/12/22 08/06/2022 08/06/2022 08/16/2022 3:[address] documented as of this encounter Care Teams Media Developer Relationship Specialty Start Date End Date Christine Herzog MD [address] [facility] [address] [place] [address] PCP - General Internal Medicine 12/02/21 Trey Pinedo MD [address] [facility] [address] [place] [address] Consulting Physician Neurology 05/09/19 Albert Craft MD [address] [place] [address] [address] [place] [address] Consulting Physician Gastroenterology 03/11/22 Chintan Figueroa MD [address] [place] [address] [address] [place], [place] [address], [place] [address] Consulting Physician Hematology and Oncology 03/11/22 Jameel Bloom DPM [address] [place] [address] Consulting Physician Orthotics 03/11/22 Gadiel Genao MD [address] [place] [address] Surgeon Vascular Surgery 03/11/22 Sepideh Hi RN [address] [place] [address] [address] [place] [address] Culturist 08/12/22 09/01/22 documented as of this encounter
--- OUTSIDE RECORDS SUMMARY | 2024-06-18 18:06 | XMS_ITS | Encounter Summary ---
Author Organization [facility] Home Care Servic es Address [address] [place] [address] Phone Care Team Providers Care Police Lieutenant Precinct Name Role Phone Trey Pinedo MD Unavailable [phone] Christine Herzog MD Primary Care Provide r Albert Craft MD Unavailable [phone] Chintan Figueroa MD Unavailable [phone] Jameel Bloom DPM Unavailable [phone] Gadiel Genao MD Unavailable [phone] Encounter Details Date Type Department Care Team (Late st Contact Info) Description 08/11/2022 Telephone [facility] [address] [place] [address] Matteo Olea, RN Social History Tobacco Use Types Packs/Day Years [...] you attend chur ch or restorationism services? Never 08/12/2022 Do you belong to [...] file 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 MEDICAL RECORD TECHNICIAN Gender Identity Not on file Sexual Orientation Straight 01/23/2021 10 :16 PM CDT documented as of this encounter Miscellaneous Notes * Telephone Encounter - Matteo Olea, RN - 08/11/2022 1:42 PM MEDICAL RECORD TECHNICIAN A secure [employer] chat was sent to Dr. Christine Herzog (PCP). I informed PCP that patient's projected [facility] SOC will be within 48 hours of discharge. I requested confirmation that he will followfor HH orders/needs and received confirmation that they will follow for home health needs and orders per secure chat on 08/11 @ 1316. CAL RECORD TECHNICIAN documented in this encounter Plan of Treatment Not on file documented as of this encounter Visit Diagnoses Not on filedocumented in this encounter Additional Health Concerns Infection Onset Date Last Indicated Resolved Time COVID19 Comment:Airborne + Contact precautions. Gown, Gloves, N95, eye protection or goggles. Precautions 08/16/22. Contact Trouble Locater if patient worsens. SUE Baldwin 08/12/22 08/06/2022 08/06/2022 08/16/2022 3:[address] Coronavirus, contact + dropl et Comment:Negative for coronavirus 08/06/2022 08/06/2022 023 12:29 PM MEDICAL RECORD TECHNICIAN documented as of this encounter Care Teams Police Lieutenant Precinct Relationship Specialty Start Date End Date Christine Herzog MD [address] [facility] [address] [place] [address] PCP - General Internal Medicine 12/02/21 Trey Pinedo MD [address] [facility] [address] [place] [address] Consulting Physician Neurology 05/09/19 Albert Craft MD [address] [facility] [place] [address] Consulting Physician Gastroenterology 03/11/22 Chintan Figueroa MD [address] [place] [address] [address] Consulting Physician Hematology and Oncology 03/11/22 Jameel Bloom DPM [address] [place] [address] Consulting Physician Orthotics 03/11/22 Gadiel Genao MD [address] [place] [address] Surgeon Vascular Surgery 03/11/22 documented as of this encounter
--- OUTSIDE RECORDS SUMMARY | 2024-06-18 18:06 | XMS_ITS | Encounter Summary ---
Author Organization [facility] Home Care Servic es Address [address] [place] [address] Phone Care Team Providers Care Heel Finisher Name Role Phone Trey Pinedo MD Unavailable [phone] Christine Herzog MD Primary Care Provide r Albert Craft MD Unavailable [phone] Chintan Figueroa MD Unavailable [phone] Jameel Bloom DPM Unavailable [phone] Gadiel Genao MD Unavailable [phone] Sepideh Hi RN Unavailable [phone] Reason for Visit * Auth/Cert Specialty Diagnoses / Procedures Referred By Contac t Referred To Contact Referral ID Status Reason Start Date Expiration Date Visits Re quested Visits Authorized [id number] 1 1 Encounter Details Date Type Department Care Team (Late st Contact Info) Description 08/17/2022 4:00 PM FLOW NURSE Home Care Visit [facility] [address] [place] [address] Rosario Rowland, SUE SN HOME VISIT Social History Tobacco [...] you attend chur ch or gnosticist services? Never 08/12/2022 Do you belong to any clubs o r organizations such as rastafarian groups, unions, fraternal or athletic groups, or [...] in a chcf (including now)? 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 FLOW NURSE Gender Identity Not on file Sexual Orientation Straight 01/23/2021 10 :16 PM CDT documented as of this encounter Last Filed Vital Signs Vital Sign Reading Time Taken Comments Blood Pressure 138/78 08/17/2022 3:02 PM FLOW NURSE Pulse 78 08/17/2022 3:02 PM FLOW NURSE Temperature 36.6 ??C (97.8 ??F) 08/17/2022 3:02 PM CS T Respiratory Rate 18 08/17/2022 3:02 PM FLOW NURSE Oxygen Saturation 98% 08/17/2022 3:02 PM FLOW NURSE Inhaled Oxygen Concentration - - Weight - - Height - - Body Mass Index - - documented in this encounter Plan of Treatment Not on file documented as of this encounter Goals Goal Patient Goal Type Associated Problems Recent Progress Patient-Stated? Author GULSHAN General Goal - Patient schedules and keeps appointments with all recommended providers ACO Care Management On track(2022 11:14 AM FLOW NURSE) No Sepideh Hi, SUE Note: Problem: Potential [...] Details Visit Type -SN Home Visit Discipline -Nursing Home Problems Problem Description Start Date Status Goals Interve ntions Homebound Status Disciplines: Skilled Disciplines Patient's homebound status 08/13/2022 Active 1 goal linked to scheduled/documen kamala intervention 1 goal intervention scheduled/documen kamala in this visit Medications Disciplines: Nursing Home Management of home medications 08/13/2022 Active 1 goal linked to scheduled/documen kamala intervention 1 goal intervention scheduled/documen kamala in this visit Monitor patient's vital signs every home health visit Disciplines: SN, PT, OT, CELLAR PACKER, PHOTOTYPESETTING EQUIPMENT MONITOR, Skilled Disciplines Monitor patient's vital signs every [...] visit during episode of care Description: Home speech clinician to measure vital signs during every [...] Problem:Medications Goal:Understand and follow medication therapy Completed Patient and instructed on medication administration, purpose, dosages, preparation, scheduling, side effects, food/drug interactions, and potential complications. Current regimen and compliance reviewed with Patient and Caregiver. Patient and Caregiver verbalize understanding of anticoagulation therapy purpose, possible side effects and complications, and bleeding precautions. Medications taught eliquis. Monitor Vital Signs Description: Monitor blood pressure, [...] Prevention Goal:Verbalize signs of infection Completed Instruct patient on signs and symptoms of infection IE: fever, odor, change in color, increased amount of drainage, purulent drainage, warmth. Pt. v/u Educate Family on Infection Prevention Description: Instructed [...] Scheduled documented in this encounter Care Teams Heel Finisher Relationship Specialty Start Date End Date Christine Herzog MD [address] [facility] [address] [place] [address] PCP - General Internal Medicine 12/02/21 Trey Pinedo MD [address] [place] [address] [address] [place] [address] Consulting Physician Neurology 05/09/19 Albert Craft MD [address] [facility] [address] [place] [address] Consulting Physician Gastroenterology 03/11/22 Chintan Figueroa MD [address] [place] [address] [address] [place] [address] Consulting Physician Hematology and Oncology 03/11/22 Jameel Bloom DPM [address] [place] [address] Consulting Physician Orthotics 03/11/22 Gadiel Genao MD [address] [place] [address] Surgeon Vascular Surgery 03/11/22 Sepideh Hi RN [address] [place] [address] [address] [place] [address] Php Developer 08/12/22 09/01/22 documented as of this encounter
--- OUTSIDE RECORDS SUMMARY | 2024-06-18 18:06 | XMS_ITS | Encounter Summary ---
Author Organization [facility] Address [address] [facility] [address] [place] [address] Care Team Providers Care Pain Management Physician Name Role Phone Trey Pinedo MD Unavailable [phone] Christine Herzog MD Primary Care Provide r Albert Craft MD Unavailable [phone] Chintan Figueroa MD Unavailable [phone] Jameel Bloom DPM Unavailable [phone] Gadiel Genao MD Unavailable [phone] Sepideh Hi RN Unavailable Reason for Visit * Reason Onset Date Comments Covid-19 Home Monitoring 08/22/2022 Encounter Details Date Type Department Care Team (Late st Contact Info) Description 08/22/2022 Telephone [facility] Accountable Care Organization [address] [place] [address] Dunia Michaud, ELBERT [address] [place] [address] [facility] [address] [place] [address] Covid-19 Home Monitoring Social History Tobacco Use [...] often do you attend chur ch or spiritism services? Never 08/12/2022 Do you belong to [...] on file 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 SHOWROOM CONSULTANT Gender Identity Not on file Sexual Orientation Straight 01/23/2021 10 :16 PM CDT documented as of this encounter Miscellaneous Notes * Telephone Encounter - Dunia Michaud MA - 08/22/2022 12:39 PM CST This patient is being disenrolled from the [employer] COVID-19 Home Monitoring program for the following reason: Complete. The patient has either completed the full 14-day program or has expressed 3 days of improved or no symptoms and 7 days since initial onset. We recommend that they are scheduled for a telemedicine evaluation with a primary care provider within 3 days of completion of the program. For questions or concerns about the home monitoring program, please contact . ROOM CONSULTANT documented in this encounter Plan of Treatment Not on file documented as of this encounter Goals Goal Patient Goal Type Associated Problems Recent Progress Patient-Stated? Author GULSHAN General Goal - Patient schedules and keeps appointments with all recommended providers ACO Care Management On track(2022 11:14 AM SHOWROOM CONSULTANT) eSpideh Guo RN Note: Problem: Potential for medical [...] documented as of this encounter Care Teams Pain Management Physician Relationship Specialty Start Date End Date Christine Herzog MD [address] [facility] [place] [address] PCP - General Internal Medicine 12/02/21 Trey Pinedo MD [address] [place] [address] [address] [place] [address] Consulting Physician Neurology 05/09/19 Albert Craft MD [address] [place] [address] [address] [place] [address] Consulting Physician Gastroenterology 03/11/22 Chintan Figueroa MD [address] [place] [address] [address] [place] [address] Consulting Physician Hematology and Oncology 03/11/22 Jameel Bloom DPM [address] [place] [address] Consulting Physician Orthotics 03/11/22 Gadiel Genao MD [address] [place] [address] Surgeon Vascular Surgery 03/11/22 Sepideh Hi RN [address] [place] [address] [address] [place] [address] Radiation Control Worker 08/12/22 09/01/22 documented as of this encounter
--- OUTSIDE RECORDS SUMMARY | 2024-06-18 18:06 | XMS_ITS | Encounter Summary ---
Author Organization [facility] Address [address] [facility] [address] [place] [address] Care Team Providers Care Top Lift Compresser Name Role Phone Trey Pinedo MD Unavailable [phone] Christine Herzog MD Primary Care Provide r Albert Craft MD Unavailable [phone] Chintan Figueroa MD Unavailable [phone] Jameel Bloom DPM Unavailable [phone] Gadiel Genao MD Unavailable [phone] Sepideh Hi RN Unavailable [phone] Reason for Visit * Reason Onset Date Comments Additional Services Or Orders 08/15/2022 Medical Question/Miscellaneous 08/15/2022 Encounter Details Date Type Department Care Team (Late st Contact Info) Description 08/15/2022 Telephone [facility] Primary Care at [address] [place] [address] Christine Herzog MD [address] [place] [address] [address] [place] [address] Additional Services Or Orders; Medical Question/Miscellaneous Social History Tobacco Use Types Packs/Day Years [...] you attend chur ch or christian services? Never 08/12/2022 Do you belong to [...] on file 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 HOSPICE CARE TRANSITIONS COORDINATOR Gender Identity Not on file Sexual Orientation Straight 01/23/2021 10 :16 PM CDT documented as of this encounter Miscellaneous Notes * Telephone Encounter - Christine Herzog MD - 08/17/2022 12:47 PM HOSPICE CARE TRANSITIONS COORDINATOR Sounds good ICE CARE TRANSITIONS COORDINATOR * Telephone Encounter - Lexii Lynn MA - 08/17/2022 12:17 PM CST Fyi: Regarding low HR. ICE CARE TRANSITIONS COORDINATOR * Telephone Encounter - Yanira Mar MA - 08/17/2022 12:06 PM CST Medical Question/Miscellaneous Caller???s Concern: Rosario from [facility] Home health is calling to let the doctor know that patient was not symptomatic, he was just sleepy and roused easily. She also states she was supposed to see patient tomorrow but is going to see if she can see him today. Caller???s Call back #: [phone] Does message need to be routed?Yes-FYI Only ICE CARE TRANSITIONS COORDINATOR * Telephone Encounter - Arianna Durham MA - 08/17/2022 10:00 AM HOSPICE CARE TRANSITIONS COORDINATOR LMOM ICE CARE TRANSITIONS COORDINATOR * Telephone Encounter - Arianna Durham MA - 08/15/2022 3:05 PM HOSPICE CARE TRANSITIONS COORDINATOR LMOM ICE CARE TRANSITIONS COORDINATOR * Telephone Encounter - Christine Herzog MD - 08/15/2022 2:53 PM HOSPICE CARE TRANSITIONS COORDINATOR That is ok. Was pt symptomatic with low HR? ICE CARE TRANSITIONS COORDINATOR * Telephone Encounter - Martell Bucio - 08/15/2022 2:07 PM CST Additional Services or Orders Type of Service Requested:Home Health Duration/Number of Visits: 1 x this week and 2 x per week for 2 weeks Is a verbal order acceptable? Yes Reason for Request (e.g. condition/symptom, date of COVID exposure if applicable): decrease in heart rate Details Regarding Additional Services (e.g. type of home health, type of equipment, type of test, etc.): home care Where will services be performed? (if outside of the practice, facility name, address, phone/fax offacility): Caller's Callback #: [phone] Additional Comments:Caller states she opened patient for home care over weekend, patient's heart rate 54 over weekend., caller states patient has - two small wound areas. 1 scabbed and painful , the other is cratered. Is it okay to leave wounds open or cover with 4 x 4 if drainage occurs. Does message need to be routed?Yes-Action Needed ICE CARE TRANSITIONS COORDINATOR documented in this encounter Plan of Treatment Not on file documented as of this encounter Goals Goal Patient Goal Type Associated Problems Recent Progress Patient-Stated? Author GULSHAN General Goal - Patient schedules and keeps appointments with all recommended providers ACO Care Management On track(2022 11:14 AM HOSPICE CARE TRANSITIONS COORDINATOR) Sepideh Guo, SUE Note: Problem: Potential for [...] eye protection or goggles. Precautions 08/16/22. Contact At Risk Specialist if patient worsens. SUE Baldwin 08/12/22 08/06/2022 08/06/2022 08/16/2022 3:[address] COVID: Recovered Comment:Added based on recent COVID infection. 08/16/2022 08/17/2022 11/14/2022 3:05 AM C DT documented as of this encounter Care Teams Top Lift Compresser Relationship Specialty Start Date End Date Christine Herzog MD [address] [facility] [address] [place] [address] PCP - General Internal Medicine 12/02/21 Trey Pinedo MD [address] [place] [address] [address] [place] [address] Consulting Physician Neurology 05/09/19 Albert Craft MD [address] [facility] [address] [place] [address] Consulting Physician Gastroenterology 03/11/22 Chintan Figueroa MD [address] [facility] [place] [address] Consulting Physician Hematology and Oncology 03/11/22 Jameel Bloom DPM [address] [place] [address] [place] [address] Consulting Physician Orthotics 03/11/22 Gadiel Genao MD [address] [facility] [place] [address] Surgeon Vascular Surgery 03/11/22 Sepideh Hi RN [address] [place] [address] [address] [place] [address] Photographer Finish 08/12/22 09/01/22 documented as of this encounter
--- OUTSIDE RECORDS SUMMARY | 2024-06-18 18:06 | XMS_ITS | Encounter Summary ---
Author Organization [facility] Home Care Servic es Address [address] [place] [address] Phone Care Team Providers Care Professor Of Art Name Role Phone Trey Pinedo MD Unavailable [phone] Christine Herzog MD Primary Care Provide r Albert Craft MD Unavailable [phone] Chintan Figueroa MD Unavailable [phone] Jameel Bloom DPM Unavailable [phone] Gadiel Genao MD Unavailable [phone] Sepideh Hi RN Unavailable [phone] Reason for Visit * Auth/Cert Specialty Diagnoses / Procedures Referred By Contac t Referred To Contact Referral ID Status Reason Start Date Expiration Date Visits Re quested Visits Authorized [id number] 1 1 Encounter Details Date Type Department Care Team (Latest Contact Info) Description 08/17/2022 12:00 PM STORE GROCERY MERCHANDISER Home Care Visit [facility] [place] [address] [address] [place] [address] Kaykay Silva, PT PT INITIAL EVALUATION Social History Tobacco Use Types Packs/Day Years [...] often do you attend chur ch or muslim services? Never 08/12/2022 Do you belong to [...] on file 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 STORE GROCERY MERCHANDISER Gender Identity Not on file Sexual Orientation Straight 01/23/2021 10 :16 PM CDT documented as of this encounter Last Filed Vital Signs Vital Sign Reading Time Taken Comments Blood Pressure 138/72 08/17/2022 11:59 AM STORE GROCERY MERCHANDISER Pulse 60 08/17/2022 11:59 AM STORE GROCERY MERCHANDISER Temperature 36.1 ??C (97 ??F) 08/17/2022 11:59 AM STORE GROCERY MERCHANDISER Respiratory Rate 18 08/17/2022 11:59 AM STORE GROCERY MERCHANDISER Oxygen Saturation 96% 08/17/2022 11:59 AM STORE GROCERY MERCHANDISER Inhaled Oxygen Concentration - - Weight - - Height - - Body Mass Index - - documented in this encounter Miscellaneous Notes * Home Health Visit Narrative - Kaykay Silva, PT - 08/17/2022 11:52 AM STORE GROCERY MERCHANDISER S: Pt is a 76yo M referred to HH SN, PT, OT svcs following hospitalization at [facility] 08/06 - 08/11 d/t bradycardia B: PMH inc COVID (+) 08/06/22, CAD, HTN, COPD, B TKA, JIMMY, TIA, GERD, Mayo's esophagus. Pt lives w his spouse in single story home with 2 steps to front entry. Pt son Ian currently staying evenings with them, he reports he does leave for work around noon 2-3 days/week. Pt has SBQC and 2WW, he reports has returned to amb using the quad cane however pt noted to be very unsteady using cane, and PT recommended to use w/walker and with cg supervision at this time. A: Pt presents with mild B LE weakness, unsteady gait, high fall risk, limited endurance R: Pt will benefit from PT 1x1 then 2x6 weeks for safety, strengthening, balance, gait / AD training, steps, HEP instruction. Pt and cgs are agreeable to POC. Pt son requesting to cancel OT eval, he states he assists pt with showers, and pt able to dress himself w/o assist. PCP Dr. Christine Herzog notified. Pt scheduled for f/up visit w PCP on 08/19. E GROCERY MERCHANDISER documented in this encounter Plan of Treatment Not on file documented as of this encounter Goals Goal Patient Goal Type Associated Problems Recent Progress Patient-Stated? Author GULSHAN General Goal - Patient schedules and keeps appointments with all recommended providers ACO Care Management On track(2022 11:14 AM STORE GROCERY MERCHANDISER) Sepideh Guo, SUE Note: Problem: Potential for [...] Care Plan Visit Details Visit Type -PT Initial Evalu ation Discipline -Physical Therapy Problems Problem Description Start Date Status Goals Interve ntions Homebound Status Disciplines: Skilled Disciplines Patient's homebound status 08/13/2022 Active 1 goal linked to scheduled/documen kamala intervention 1 goal intervention scheduled/documen kamala in this visit Monitor patient's vital signs every home health visit Disciplines: SN, PT, OT, RELAY WORKER, MOTOR ASSEMBLER, Skilled Disciplines Monitor patient's vital signs every [...] Therapy Impaired functional mobility/balance 08/17/2022 Active - 4 problem interventions scheduled/documen kamala in this visit Goals Goal Associated Problem Outcome Goal Met? Visit Notes Patient receives care at the most appropriate care setting Description: Patient receives care at the most appropriate care setting. Homebound Status No Measure vital signs during every home health visit during episode of care Description: Home furnace cooler to measure vital signs during every home [...] setting Completed Patient is homebound due to recent hospitalization d/t bradycardia, COVID; weakness, unsteady gait, fall risk, limited endurance, requires walker for ambulation, requires assist for self-care, requires assist to leave home Monitor Vital Signs Description: Monitor blood pressure, [...] transfer training. Problem:PT Impaired Functional Mobility/Balance Completed Sit to stand from sofa relying on B UE assist pushing up, pt noted to brace B LE against surface and has LOB backwards upon standing, req CGA to correct. Noted poor control w stand > sit to sofa. Instructed patient and caregiver on safety with sit <> stand transfers including backing up completely to surface, using w/walker, and reaching back w BUE for support with stand > sit; Instructed on scooting forward to edge of surface and positioning B hands for BUE support to push up with sit > stand. Patient and caregiver verbalize understanding Home Exercise Program (HEP) Description: Instruct patient/caregiver and perform HEP. Problem:PT Impaired Functional Mobility/Balance Completed Instructed pt and cgs on initial HEP and performed sitting on sofa: Heel raises, Toe raises, LAQ, Hip flexion w knee flexion, HIp abd/add. Performed x 8-10 reps ea B LE. Pt req back support w performing LAQ. Pt denies any pain w all therex. Pt and cgs provided written HEP instructions, instructed to perform 2-3x/day as tolerated; they verb agreement Gait/Stair Training Description: Instruct patient/caregiver and perform gait/stair training. Problem:PT Impaired Functional Mobility/Balance Completed Instructed pt on gait in home using 2WW w cueing to keep walker closer to him and to improve step length into walker. Pt noted to be unsteady making 180 degree turn, req CGA. PT instructed pt to use w/walker and to amb w cg assist at all times for safety; pt and his son verb understanding Therapeutic Exercise Description: Perform therapeutic exercise, progressing as tolerated. Problem:PT Impaired Functional Mobility/Balance Completed See HEP comments documented in this encounter Care Teams Professor Of Art Relationship Specialty Start Date End Date Christine Herzog MD [address] [facility] [address] [place] [address] PCP - General Internal Medicine 12/02/21 Trey Pinedo MD [address] [place] [address] [address] [place] [address] Consulting Physician Neurology 05/09/19 Albert Craft MD [address] [facility] [address] [place] [address] Consulting Physician Gastroenterology 03/11/22 Chintan Figueroa MD [address] [place] [address] [address] [place] [address] Consulting Physician Hematology and Oncology 03/11/22 Jameel Bloom DPM [address] [place] [address] Consulting Physician Orthotics 03/11/22 Gadiel Genao MD [address] [place] [address] Surgeon Vascular Surgery 03/11/22 Sepideh Hi RN [address] [place] [address] [address] [place] [address] Home Security Professional 08/12/22 09/01/22 documented as of this encounter
--- OUTSIDE RECORDS SUMMARY | 2024-06-18 18:07 | XMS_ITS | Encounter Summary ---
Author Organization [facility] Medical Group Address [address] [facility] [address] [place] [address] Care Team Providers Care Retail Service Specialist Name Role Phone Trey Pinedo MD Unavailable [phone] Christine Herzog MD Primary Care Provide r Albert Craft MD Unavailable [phone] Chintan Figueroa MD Unavailable [phone] Jameel Bloom DPM Unavailable [phone] Gadiel Genao MD Unavailable [phone] Encounter Details Date Type Department Care Team (Late st Contact Info) Description 03/21/2022 Telephone [facility] Gastroenterology at [address] [place] [address] Albert Craft MD [address] [place] [address] [address] [place] [address] Social History Tobacco Use Types [...] neighbors? More than three times a week 12/31/2020 How often do you get togethe r with friends or relatives? More than three times a week 12/31/2020 Attends Yarsanism Services Not on file 12/31 Active Member of Clubs or Organizations Not on f ile 12/31/2020 Attends Club or Organization Meetings Not on jory e 12/31/2020 Are you , , di vorced, , never , or living with a partner? 12/31/2020 AUDIT-C Answer Date Recorded Q1: How often do you have a drink containing alc ohol? Never 04/20/2021 Average Number of Drinks Not on file 021 Frequency of Binge Drinking Not on file 04/02 Overall Financial Resource Strain (CARDIA) Answe r Date Recorded How hard is it for you to pa y for the very basics like food, housing, medical care, and heating? Not very hard 12/31/2020 PHQ-2 Answer Date Recorded PHQ-2 Total Score (If total score is 3 or more points, staff should administer the PHQ-9) 0 03/10/2022 PRAPARE - Transportation Answer Date Re corded In the past 12 months, has l ack of transportation kept you from medical appointments or from getting medications? No 07/2020 In the past 12 months, has l ack of transportation kept you from meetings, work, or from getting things needed for daily living? No 12/31/2020 Sex and Gender Information Value Date Recorded Sex Assigned at Not on file 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 FURNACE OPERATOR AND TENDER Gender Identity Not on file Sexual Orientation Straight 01/23/2021 10 :16 PM CDT documented as of this encounter Miscellaneous Notes * Telephone Encounter - Aicha Lin MA - 03/21/2022 1:49 PM CDT Last colonoscopy:2018 Family history colon cancer (if yes, relationship to pt): Personal history colon polyps or colon cancer: polyps Pt on blood thinner (if yes, list medication and reason for taking): plavix Has pt had recent stent placement within the last year: no Pt have pacemaker/defibrillator: no Pt diabetic (if yes, insulin or oral meds): no Pt have kidney disease or on dialysis: no Pt on iron: no Hx of Constipation: no Mechanical Heart valve: no COVID-19 test verbally given to pt:yes Instructed pt to call with any medical changes and/or medications/insurance. documented in this encounter Plan of Treatment Not on file documented as of this encounter Visit Diagnoses Diagnosis Pre-operative clearance- Primary Unspecified pre-operative examination Mayo's esophagus with dysplasia History of colon polyps documented in this encounter Care Teams Retail Service Specialist Relationship Specialty Start Date End Date Christine Herzog MD [address] [facility] [address] [place] [address] PCP - General Internal Medicine 12/02/21 Trey Pinedo MD [address] [place] [address] [address] [place] [address] Consulting Physician Neurology 05/09/19 Albert Craft MD [address] [facility] [address] [place] [address] Consulting Physician Gastroenterology 03/11/22 Chintan Figueroa MD [address] [place] [address] [address] [place], [place] [address], [place] [address] Consulting Physician Hematology and Oncology 03/11/22 Jameel Bloom DPM [address] [place] [address] Consulting Physician Orthotics 03/11/22 Gadiel Genao MD [address] [place] [address] Surgeon Vascular Surgery 03/11/22 documented as of this encounter
--- OUTSIDE RECORDS SUMMARY | 2024-06-18 18:07 | XMS_ITS | Encounter Summary ---
Author Organization [facility] Address [address] [facility] [address] [place] [address] Phone Care Team Providers Care Product Safety Professional Name Role Phone Trey Pinedo MD Unavailable [phone] Christine Herzog MD Primary Care Provide r Albert Craft MD Unavailable [phone] Chintan Figueroa MD Unavailable [phone] Jameel Bloom DPM Unavailable [phone] Gadiel Genao MD Unavailable [phone] Reason for Visit * Reason Comments Follow-up * Consultation (Routine) - Closed Specialty Diagnoses / Procedures Referred By Contac t Referred To Contact Vascular Surgery Diagnoses Carotid artery disease (HCC) Wesley Em MD [address] [place] [address] Phone: tel: fax: Gadiel Genao MD [address] [facility] [address] [place] [address] Phone: tel: fax: Referral ID Status Reason Start Date Expiration Date V isits Requested Visits Authorized [id number] Closed Specialty Services Required 04/27/2021 05/27/2022 12 12 Encounter Details Date Type Department Care Team (Late st Contact Info) Description 07/12/2022 2:45 PM LAND SURVEYOR ASSISTANT Office Visit [facility] Surgery [address] [facility] 8th [place] [address] [place] [address] Gadiel Genao MD [address] [facility] [address] [place] [address] PAD (peripheral artery disease) (CMS/HCC) (HCC) (Primary Dx); Stenosis of carotid artery, unspecified laterality Social History Tobacco Use Types Packs/Day Years Used Date Smoking Tobacco: Former Cigarettes 0.5 50 1 959 - 2008 Smokeless Tobacco: Never Tobacco Cessation:Counseling Given: Not Answered Alcohol Use Standard Drinks/Week Comments No 0 [...] than three times a week 12/31/2020 Attends [employer] Services Not on file 12/31 Active Member [...] on file 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 LAND SURVEYOR ASSISTANT Gender Identity Not on file Sexual Orientation Straight 01/23/2021 10 :16 PM CDT documented as of this encounter Last Filed Vital Signs Vital Sign Reading Time Taken Comments Blood Pressure 194/89 07/12/2022 2:56 PM LAND SURVEYOR ASSISTANT Pulse 62 07/12/2022 2:56 PM LAND SURVEYOR ASSISTANT Temperature - - Respiratory Rate - - Oxygen Saturation 99% 07/12/2022 2:56 PM LAND SURVEYOR ASSISTANT Inhaled Oxygen Concentration - - Weight 82.1 kg (181 lb) 07/12/2022 2:56 PM LAND SURVEYOR ASSISTANT Height 175.3 cm (5' 9 ) 07/12/2022 2:56 PM LAND SURVEYOR ASSISTANT Body Mass Index 26.73 07/12/2022 2:56 PM LAND SURVEYOR ASSISTANT documented in this encounter Progress Notes * Gadiel Genao MD - 07/12/2022 2:45 PM CST Patient: Villa Zuniga Date of : 1945 Date of Service: 07/12/2022 RETURN OUTPATIENT VISIT HISTORY OF PRESENT ILLNESS: Villa Zuniga is a 76 y.o. 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 . He presents today for follow-up both. He had axial imaging last year that showed his left carotid was not occluded, from presents today without any signs or symptoms of stroke or TIA. In terms of his bilateral lower extremities he is able to ambulate much better with a walker, and has no claudication symptoms. He has had his kneesreplaced, but does not notice any significant improvement in the pain. PHYSICAL EXAMINATION: VITAL SIGNS: Vitals BP (!) 194/89 (BP Location: Right arm, Patient Position: Sitting) Pulse 62 Ht 175.3 cm (5' 9 ) Wt 82.1 kg (181 lb) SpO2 99% BMI 26.73 kg/m?? HENT: Normocephalic and atraumatic. Extraocular movements are intact. EYES: Pupils are equal and reactive to light bilaterally. NECK: Supple with no lymphadenopathy. CHEST: Symmetric chest expansion no accessory muscle usage MUSCULOSKELETAL: Warm, well perfused NEURO: Grossly intact motor and sensory exam. SKIN: No visible rashes. No wounds noted. RADIOLOGY: I personally reviewed the head neck CT scan from today demonstrates widely patent left and right internal carotid artery system with no significant concerns. There is a small flow void on the left proximal internal carotid artery, but on later phase that is not present. ASSESSMENT/PLAN: Villa is a 76-year-old male with concern for poly vascular disease. Given the 2 normal studies of his left carotid artery I believe it is safe to discontinue surveillance of this. Given his lack of symptoms as bilateral lower extremities I believe it is prudent to stop surveillance of this as well. I will be available to see him on an as-needed basis moving forward. SURVEYOR ASSISTANT documented in this encounter Plan of Treatment Not on file documented as of this encounter Visit Diagnoses Diagnosis PAD (peripheral artery disease) (HCC)- Primary Unspecified peripheral vascular disease Stenosis of carotid artery, unspecified laterality documented in this encounter Care Teams Product Safety Professional Relationship Specialty Start Date End Date Christine Herzog MD [address] [address] PCP - General Internal Medicine 12/02/21 Trey Pinedo MD [address] [place] [address] [address] [place] [address] Consulting Physician Neurology 05/09/19 Albert Craft MD [address] [place] [address] Consulting Physician Gastroenterology 03/11/22 Chintan Figueroa MD [address] [address] Consulting Physician Hematology and Oncology 03/11/22 Jameel Bloom DPM [address] [place] [address] Consulting Physician Orthotics 03/11/22 Gadiel Genao MD [address] [place] [address] Surgeon Vascular Surgery 03/11/22 documented as of this encounter
--- OUTSIDE RECORDS SUMMARY | 2024-06-18 18:07 | XMS_ITS | Encounter Summary ---
Author Organization [facility] Address [address] [facility] [address] [place] [address] Care Team Providers Care Naturalization Examiner Name Role Phone Trey Pinedo MD Unavailable [phone] Christine Herzog MD Primary Care Provide r Albert Craft MD Unavailable [phone] Chintan Figueroa MD Unavailable [phone] Jameel Bloom DPM Unavailable [phone] Gadiel Genao MD Unavailable [phone] Sepideh Hi RN Unavailable Lexii Arnold MA Unavailable [phone] Walker Carvajal LCSW Unavailable Unavailabl e Encounter Details Date Type Department Care Team (Late st Contact Info) Description 04/19/2022 Orders Only [facility] Primary Care at [address] [place] [address] Christine Herzog MD [address] [place] [address] [address] [place] [address] 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); Medication management; Cognitive decline Social History Tobacco Use Types Packs/Day Years Used Date Smoking Tobacco: Former Cigarettes 0.5 50 1 959 - 2008 Smokeless Tobacco: Never Alcohol Use [...] often do you attend chur ch or latter day services? 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 Author GULSHAN General Goal - Patient schedules and keeps appointments with all recommended providers ACO Care Management On track(2022 11:14 AM HEEL WASHER STRINGING MACHINE OPERATOR) No Sepideh Hi, SUE Note: Problem: Potential [...] A1C 5.9(H) 4.0 - 5.6 % [facility] Comment:Testing performed by : [address] [address] Estimated Average Glucose 123 mg/dL [facility] Comment: The ADA recommends reporting an estimated Average Glucose (eAG) with all Hemoglobin A1c results using the equation derived from a study of 507 normal and diabetic adults. ??Minority populations were underrepresented and children were not included. ?? (Diabetes Care 31:9194-3803, 2008). ??The eAG is not equivalent to a fasting glucose. Testing performed by: [address] [address] Blood 11/03/2022 12:0 9 PM CDT 11/03/2022 12:16 PM CDT Narrative [facility] - 11/03/2022 12:58 PM CDT Non fasting Christine Herzog MD LAB BLOOD ORDERABLES Final Result [facility] [address] [facility] [place] [address] documented in this encounter Visit Diagnoses Diagnosis Type 2 diabetes mellitus with hyperlipidemia (HCC)- Primary Medication management Cognitive decline Type 2 diabetes mellitus with hyperlipidemia (HCC) documented in this encounter Additional Health Concerns Infection Onset Date Last Indicated Resolved Time COVID: Suspected 08/06/2022 08/06/2022 08/06/2022 1:19 AM HEEL WASHER STRINGING MACHINE OPERATOR COVID19 Comment:Airborne + Contact precautions. Gown, Gloves, N95, eye protection or goggles. Precautions 08/16/22. Contact Mold Dresser if patient worsens. SUE Baldwin 08/12/22 08/06/2022 08/06/2022 08/16/2022 3:[address] Coronavirus, contact + dropl et Comment:Negative for coronavirus 08/06/2022 08/06/2022 023 12:29 PM HEEL WASHER STRINGING MACHINE OPERATOR COVID: Recovered Comment:Added based on recent COVID infection. 08/16/2022 08/17/2022 11/14/2022 3:05 AM C DT documented as of this encounter Care Teams Naturalization Examiner Relationship Specialty Start Date End Date Christine Herzog MD [address] [place] [address] [address] [place] [address] PCP - General Internal Medicine 12/02/21 Trey Pinedo MD [address] [place] [address] [address] [place] [address] Consulting Physician Neurology 05/09/19 Albert Craft MD [address] [place] [address] [address] [place] [address] Consulting Physician Gastroenterology 03/11/22 Chintan Figueroa MD [address] [place] [address] [address] [place] [address] Consulting Physician Hematology and Oncology 03/11/22 Jameel Bloom DPM [address] [place] [address] Consulting Physician Orthotics 03/11/22 Gadiel Genao MD [address] [place] [address] Surgeon Vascular Surgery 03/11/22 Sepideh Hi, SUE [address] [place] [address] [address] [place] [address] Pet Resort Concierge 08/12/22 09/01/22 Lexii Arnold MA [address] [facility] [facility] [facility] [address] [place] [address] ACO Care Sales Contractor 09/19/22 09/20/22 Walker Carvajal LCSW [address] [facility] [facility] [place] [address] Jig Grinder Set Up Operator 09/27/22 09/27/22 documented as of this encounter
--- OUTSIDE RECORDS SUMMARY | 2024-06-18 18:07 | XMS_ITS | Encounter Summary ---
Author Organization [facility] Address [address] [place] [address] Care Team Providers Care Director Of Special Events Name Role Phone Trey Pinedo MD Unavailable [phone] Christine Herzog MD Primary Care Provide r Reason for Visit * Reason Comments OP Infusion Here for possible ph lebotomy. No phlebotomy today, Hematocrit 43.5. Encounter Details Date Type Department Care Team (Late st Contact Info) Description 02/23/2022 1:00 PM CDT Infusion [facility] [address] [facility] [address] [place] [address] Polycythemia Social History Tobacco Use Types Packs/Day [...] than three times a week 12/31/2020 Attends Scientology Services Not on file 12/31 Active Member [...] points, staff should administer the PHQ-9) 0 12/15/2021 PRAPARE - Transportation Answer Date Re corded [...] on file 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 SEO COORDINATOR Gender Identity Not on file Sexual Orientation Straight 01/23/2021 10 :16 PM CDT documented as of this encounter Nursing Notes * Araseli Orellana RN - 02/23/2022 1:00 PM CDT Patient here in the ambulatory mode with the assistance of a quad cane, after having his CBC drawn.His Hematocrit returned at 43.5. No phlebotomy taken. Patient to return in April, when he will again have labs, see Dr. Figueroa, and possibly have a phlebotomy, if his Hematocrit is 45 or greater, asper Dr. Figueroa's parameters. Patient left in stable condition. documented in this encounter Plan of Treatment Not on file documented as of this encounter Visit Diagnoses Diagnosis Polycythemia Polycythemia, secondary documented in this encounter Orders Appointment Requests Count Last Ordered Date Fi rst Ordered Date ONCBCN INFUSION APPT REQUEST 1 02/23/2022 documented in this encounter Care Teams Director Of Special Events Relationship Specialty Start Date End Date Christine Herzog MD [address] [facility] [address] [place] [address] PCP - General Internal Medicine 12/02/21 Trey Pinedo MD [address] [facility] [address] [place] [address] Consulting Physician Neurology 05/09/19 documented as of this encounter
--- OUTSIDE RECORDS SUMMARY | 2024-06-18 18:07 | XMS_ITS | Encounter Summary ---
Author Organization [facility] Address [address] [place] [address] Care Team Providers Care Attorney Law Clerk Name Role Phone Trey Pinedo MD Unavailable [phone] Christine Herzog MD Primary Care Provide r Encounter Details Date Type Department Care Team (Late st Contact Info) Description 02/23/2022 12:45 PM CDT Lab [facility] [address] [facility] [address] [place] [address] Polycythemia Social History Tobacco Use Types Packs/Day [...] than three times a week 12/31/2020 Attends Worship Services Not on file 12/31 Active Member [...] on file 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 RAW STOCK Gender Identity Not on file Sexual Orientation Straight 01/23/2021 10 :16 PM CDT documented as of this encounter Last Filed Vital Signs Vital Sign Reading Time Taken Comments Blood Pressure 164/70 02/23/2022 12:52 PM CDT Pulse 70 02/23/2022 12:52 PM CDT Temperature 35.9 ??C (96.7 ??F) 02/23/2022 1 2:52 PM CDT Respiratory Rate 20 02/23/2022 12:5 2 PM CDT Oxygen Saturation 96% 02/23/2022 12: 52 PM CDT Inhaled Oxygen Concentration - - Weight 83.8 kg (184 lb 11.2 oz) 022 12:52 PM CDT Height - - Body Mass Index 27.28 12/15/2021 3:34 PM CDT documented in this encounter Plan of Treatment Not on file documented as of this encounter Procedures Procedure Name Priority Date/Time Associated Diagnosis Comments DIFFERENTIAL AUTO STAT 02/23/2022 12: 55 PM CDT Polycythemia CBC WITH AUTO DIFFERENTIAL STAT 02/23/2022 12:55 PM CDT Polycythemia documented in this encounter Results * Differential, auto (02/23/2022 12:55 PM CDT) Neutrophil abs 3.6 1.7 - 6.5 K/cumm [facility] Imm gran abs 0.0 0.0 - 0.1 K/cumm [facility] Lymphocyte abs 1.1 0.8 - 3.3 K/cumm [facility] Monocyte abs 0.4 0.2 - 0.8 K/cumm [facility] Eosinophil abs 0.3 0.0 - 0.5 K/cumm [facility] Basophil abs 0.1 0.0 - 0.1 K/cumm [facility] Neutrophil pct 66.1 % [facility] Comment: Interpretive Data Percent cell count reference ranges are not reported, since discordance with absolute values may lead to misinterpretation of CBC data. Current Interpretive Data was last revised on 2017. Imm gran pct 0.2 % [facility] Comment: Interpretive Data Percent cell count reference ranges are not reported, since discordance with absolute values may lead to misinterpretation of CBC data. Current Interpretive Data was last revised on 2017. Lymphocyte pct 19.6 % [facility] Comment: Interpretive Data Percent cell count reference ranges are not reported, since discordance with absolute values may lead to misinterpretation of CBC data. Current Interpretive Data was last revised on 2017. Monocyte pct 7.7 % [facility] Comment: Interpretive Data Percent cell count reference ranges are not reported, since discordance with absolute values may lead to misinterpretation of CBC data. Current Interpretive Data was last revised on 2017. Eosinophil pct 4.6 % [facility] Comment: Interpretive [...] Data was last revised on 2017. Blood 02/23/2022 12:5 5 PM CDT 02/23/2022 12:57 PM CDT Chintan Figueroa MD LAB BLOOD ORDERABLES Final Re sult [facility] [address] [facility] [place] [address] * (ABNORMAL) CBC with auto differential (02/23/2022 12:55 PM CDT) WBC 5.4 3.8 - 9.9 K/cumm [facility] Hgb 13.9 13.0 - 17.5 g/dL [facility] Hct 43.5 38.9 - 50.3 % [facility] Plt 177 150 - 400 K/cumm [facility] MPV 11.2 9.1 - 12.3 fL [facility] RBC 5.29 4.30 - 5.80 M/cumm [facility] MCV 82.2 81.3 - 96.4 fL [facility] MCH 26.3(L) 27.1 - 33.3 pg [facility] MCHC 32.0(L) 32.3 - 35.7 g/dL [facility] RDW CV 14.5 11.1 - 14.9 % [facility] RDW SD 43.4 35.7 - 48.1 fL [facility] NRBC abs Not Measured 0.00 - 0.01 K/cumm [facility] Blood 02/23/2022 12:5 5 PM CDT 02/23/2022 12:57 PM CDT Chintan Figueroa MD LAB BLOOD ORDERABLES Final Re sult Performing Organization Address City/[facility]/ZIP Co de Phone Number [facility] [address] [place] [address] documented in this encounter Visit Diagnoses Diagnosis Polycythemia Polycythemia, secondary documented in this encounter Orders Appointment Requests Count Last Ordered Date Fi rst Ordered Date ONCBCN LAB APPOINTMENT 1 02/23/2022 documented in this encounter Care Teams Attorney Law Clerk Relationship Specialty Start Date End Date Christine Herzog MD [address] [facility] [address] [place] [address] PCP - General Internal Medicine 12/02/21 Trey Pinedo MD [address] [facility] [address] [place] [address] Consulting Physician Neurology 05/09/19 documented as of this encounter
--- OUTSIDE RECORDS SUMMARY | 2024-06-18 18:07 | XMS_ITS | Encounter Summary ---
Author Organization [facility] Address [address] [place] [address] Phone Care Team Providers Care Software Development Coordinator Name Role Phone Trey Pinedo MD Unavailable [phone] Christine Herzog MD Primary Care Provide r Albert Craft MD Unavailable [phone] Chintan Figueroa MD Unavailable [phone] Jameel Bloom DPM Unavailable [phone] Gadiel Genao MD Unavailable [phone] Reason for Visit * Reason Onset Date Comments Call Back 08/04/2022 Appointment 08/04/2022 Encounter Details Date Type Department Care Team (Late st Contact Info) Description 08/04/2022 Telephone [facility] [place] [address] [facility] 6th [place] [address] [place] [id number] Kristin Pena Call Back; Appointment Social History Tobacco Use Types Packs/Day Years [...] than three times a week 12/31/2020 Attends Latter-Day Services Not on file 12/31 Active Member [...] on file 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 Hayes. Appointment was already rescheduled at the time of call back. CH OPERATOR documented in this encounter Plan of Treatment Not on file documented as of this encounter Visit Diagnoses Not on filedocumented in this encounter Care Teams Software Development Coordinator Relationship Specialty Start Date End Date Christine Herzog MD [address] [facility] [address] [place] [address] PCP - General Internal Medicine 12/02/21 Trey Pinedo MD [address] [place] [address] [address] [place] [address] Consulting Physician Neurology 05/09/19 Albert Craft MD [address] [facility] [address] [place] [address] Consulting Physician Gastroenterology 03/11/22 Chintan Figueroa MD [address] [place] [address] [address] [place] [address] Consulting Physician Hematology and Oncology 03/11/22 Jameel Bloom DPM [address] [place] [address] Consulting Physician Orthotics 03/11/22 Gadiel Genao MD [address] [place] [address] Surgeon Vascular Surgery 03/11/22 documented as of this encounter
--- OUTSIDE RECORDS SUMMARY | 2024-06-18 18:07 | XMS_ITS | Encounter Summary ---
Author Organization [facility] Healthcare Address [address] [place] [address] Care Team Providers Care Health Workers Name Role Phone Trey Pinedo MD Unavailable [phone] Christine Herzog MD Primary Care Provide r Encounter Details Date Type Department Care Team (Late st Contact Info) Description 01/11/2022 1:45 PM CDT Lab [facility] Physicians [address] [facility] [address] [place] [address] Polycythemia Social History Tobacco Use Types Packs/Day [...] than three times a week 12/31/2020 Attends Orthodox Services Not on file 12/31 Active [...] on file 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 Gender Identity Not on file Sexual Orientation Straight 01/23/2021 10 :16 PM CDT documented as of this encounter Last Filed Vital Signs Vital Sign Reading Time Taken Comments Blood Pressure 170/89 01/11/2022 1:38 PM CDT Pulse 62 01/11/2022 1:38 PM CDT Temperature 35.7 ??C (96.2 ??F) 01/11/2022 1:38 PM CD T Respiratory Rate 20 01/11/2022 1:38 PM CDT Oxygen Saturation 99% 01/11/2022 1:38 PM CDT Inhaled Oxygen Concentration - - Weight 82.1 kg (181 lb 1.6 oz) 01/11/2022 1:38 P M CDT Height - - Body Mass Index 26.74 12/15/2021 3:34 PM CDT documented in this encounter Plan of Treatment Not on file documented as of this encounter Procedures Procedure Name Priority Date/Time Associated Diagnosis Comments DIFFERENTIAL AUTO STAT 01/11/2022 1:4 0 PM CDT Polycythemia CBC WITH AUTO DIFFERENTIAL STAT 01/11/2022 1:40 PM CDT Polycythemia documented in this encounter Results * Differential, auto (01/11/2022 1:40 PM CDT) Neutrophil abs 3.7 1.7 - 6.5 K/cumm [facility] Imm gran abs 0.0 0.0 - 0.1 K/cumm [facility]) Lymphocyte abs 1.3 0.8 - 3.3 K/cumm [facility]) Monocyte abs 0.7 0.2 - 0.8 K/cumm [facility]) Eosinophil abs 0.3 0.0 - 0.5 K/cumm [facility]) Basophil abs 0.1 0.0 - 0.1 K/cumm [facility]) Neutrophil pct 60.7 % [facility] Comment: Interpretive [...] was last revised on 2017. Lymphocyte pct 21.4 % [facility] Comment: Interpretive Data Percent cell count reference ranges are not reported, since discordance with absolute values may lead to misinterpretation of CBC data. Current Interpretive Data was last revised on 2017. Monocyte pct 11.5 % [facility] Comment: Interpretive Data [...] Data was last revised on 2017. Blood 01/11/2022 1:40 PM CDT 01/11/2022 1:42 PM CDT Chintan Figueroa MD LAB BLOOD ORDERABLES Final Re sult [facility] [address] [facility] [place] [address] * (ABNORMAL) CBC with auto differential (01/11/2022 1:40 PM CDT) WBC 6.2 3.8 - 9.9 K/cumm [facility]) Hgb 15.6 13.0 - 17.5 g/dL [facility]) Hct 49.1 38.9 - 50.3 % [facility] Plt 175 150 - 400 K/cumm [facility]) MPV 10.4 9.1 - 12.3 fL [facility]) RBC 5.98(H) 4.30 - 5.80 M/cumm [facility]) MCV 82.1 81.3 - 96.4 fL [facility]) MCH 26.1(L) 27.1 - 33.3 pg [facility]) MCHC 31.8(L) 32.3 - 35.7 g/dL [facility]) RDW CV 16.3(H) 11.1 - 14.9 % [facility]) RDW SD 46.4 35.7 - 48.1 fL [facility]) NRBC abs Not Measured 0.00 - 0.01 K/cumm [facility]) Blood 01/11/2022 1:40 PM CDT 01/11/2022 1:42 PM CDT Chintan Figueroa MD LAB BLOOD ORDERABLES Final Re sult [facility] [address] [facility] [place] [address] documented in this encounter Visit Diagnoses Diagnosis Polycythemia Polycythemia, secondary documented in this encounter Orders Appointment Requests Count Last Ordered Date Fi rst Ordered Date ONCBCN LAB APPOINTMENT 1 01/11/2022 documented in this encounter Care Teams Health Workers Relationship Specialty Start Date End Date Christine Herzog MD [address] [facility] [address] [place] [address] PCP - General Internal Medicine 12/02/21 Trey Pinedo MD [address] [facility] [address] [place] [address] Consulting Physician Neurology 05/09/19 documented as of this encounter
--- OUTSIDE RECORDS SUMMARY | 2024-06-18 18:07 | XMS_ITS | Encounter Summary ---
Author Organization [facility] Address [address] [place] [address] Phone Care Team Providers Care Freelance Makeup Artist Name Role Phone Trey Pinedo MD Unavailable [phone] Christine Herzog MD Primary Care Provide r Albert Craft MD Unavailable [phone] Chintan Figueroa MD Unavailable [phone] Jameel Bloom DPM Unavailable [phone] Gadiel Genao MD Unavailable [phone] Reason for Visit * Reason Onset Date Comments Appointment/Schedules 07/29/2022 Encounter Details Date Type Department Care Team (Late st Contact Info) Description 07/29/2022 Telephone [facility] [address] [facility] 6th [place] [address] [place] [address] Kristin Pena Appointment/Schedules Social History Tobacco Use Types Packs/Day Years [...] than three times a week 12/31/2020 Attends Voodoo Services Not on file 12/31 Active Member [...] on file 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 Zuniga is accompanied by a worker from [facility] for safety during his 's visit with Dr. Hayes. & scheduled back to be back. D DEVELOPMENT MANAGER * Telephone Encounter - Kristin Pena - 07/29/2022 1:10 PM CST Called son, 1st unsuccessful call, LVM asking for a callback at [phone] about the appointment withDr. Hayes on 08/03/22 mb D DEVELOPMENT MANAGER documented in this encounter Plan of Treatment Not on file documented as of this encounter Visit Diagnoses Not on filedocumented in this encounter Care Teams Freelance Makeup Artist Relationship Specialty Start Date End Date Christine Herzog MD [address] [facility] [address] [place] [address] PCP - General Internal Medicine 12/02/21 Trey Pinedo MD [address] [place] [address] [address] [place] [address] Consulting Physician Neurology 05/09/19 Albert Craft MD [address] [place] [address] [address] [place] [address] Consulting Physician Gastroenterology 03/11/22 Chintan Figueroa MD [address] [place] [address] [place] [address] Consulting Physician Hematology and Oncology 03/11/22 Jameel Bloom DPM [address] [place] [address] Consulting Physician Orthotics 03/11/22 Gadiel Genao MD [address] [place] [address] Surgeon Vascular Surgery 03/11/22 documented as of this encounter
--- OUTSIDE RECORDS SUMMARY | 2024-06-18 18:07 | XMS_ITS | Encounter Summary ---
Author Organization [facility] Address [address] [place] [address] Phone Care Team Providers Care Apartment Groundskeeper Name Role Phone Trey Pinedo MD Unavailable Christine Herzog MD Primary Care Provide r Albert Craft MD Unavailable [phone] Chintan Figueroa MD Unavailable Jameel Bloom DPM Unavailable [phone] Gadiel Genao MD Unavailable Reason for Visit * Reason Comments Follow-up Polycythemia Encounter Details Date Type Department Care Team (Late st Contact Info) Description 04/27/2022 10:45 AM CDT Office Visit [facility] Oncology [address] [place] [address] [address] [place] [address] Chintan Figueroa MD [address] [place] [address] [address] [place] [address] Polycythemia (Primary Dx) Social History Tobacco Use [...] than three times a week 12/31/2020 Attends Moravian Services Not on file 12/31 Active Member [...] file 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 MARBLE AND 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 Gender Identity Not on file Sexual Orientation Straight 01/23/2021 10 :16 PM CDT documented as of this encounter Last Filed Vital Signs Vital Sign Reading Time Taken Comments Blood Pressure 183/86 04/27/2022 9:58 AM CDT Pulse 60 04/27/2022 9:58 AM CDT Temperature 36.4 ??C (97.5 ??F) 04/27/2022 9:58 AM CD T Respiratory Rate 20 04/27/2022 9:58 AM CDT Oxygen Saturation 97% 04/27/2022 9:58 AM CDT Inhaled Oxygen Concentration - - Weight 80.9 kg (178 lb 6.4 oz) 04/27/2022 9:58 A M CDT Height - - Body Mass Index 25.97 04/19/2022 3:30 PM CDT documented in this encounter Progress Notes * Monika Castellano, PETROLEUM TERMINAL PLANT OPERATOR - 04/27/2022 10:45 AM CDT Patient Identifying Data: Villa Zuniga is a 76 y.o. male seen in followup today DIAGNOSIS: [...] grams/deciliter. Patient reported he established care with scientific advisor, Dr. Hoskins who recommended regular phlebotomy to [...] denies SOB, dizziness, arm or leg pains. No other concerns. Review of Systems Review of systems positive for symptoms as per interval history. All other review of systems negative. Objective Vitals: Vitals: 04/27/22 0958 BP: (!) 183/86 BP Location: Left arm Pulse: 60 Resp: 20 Temp: 36.4 ??C (97.5 ??F) TempSrc: Skin SpO2: 97% Weight: 80.9 kg (178 lb 6.4 oz) PHYSICAL EXAM: Physical Exam -GENERAL: calm -EYES: [...] aredisplayed. Labs - Hematology Latest Ref Range 12/08/21 01/11/22 02/23/22 04/27/22 WBC 3.8 - 9.9 K/cumm 7.9 6.2 5.4 5.7 Total Hb, POC 13.0 - 17.5 g/dL 14.9 15.6 13.9 15.3 Hct 38.9 - 50.3 % 46.7 49.1 43.5 47.7 Plt 150 - 400 K/cumm 208 175 177 170 Neutrophil abs 1.7 - 6.5 K/cumm 5.3 3.7 3.6 3.2 Lymphocytes, abs 0.8 - 3.3 K/cumm 1.4 1.3 1.1 1.4 Chemistry Component Value Date/Time SODIUM 140 12/08/20212058 POTASSIUM 3.6 12/08/20212058 POTASSIUM 3.8 03/22/2017 0925 CHLORIDE 104 12/08/20212058 CO2 25 12/08/20212058 BUNSER 21 12/08/20212058 CREATININE 1.16 12/08/20212058 GLUCOSE 97 12/08/20212058 Component Value Date/Time CALCIUM 9.2 12/08/20212058 ALKPHOS 127 12/08/20212058 AST 11 12/08/20212058 ALT 10 12/08/20212058 BILITOT 0.8 12/08/20212058 Tumor Marker History Some values may be hidden. Unless noted otherwise, only the newest values recorded on each date aredisplayed. Tumor Markers Latest Ref Range 10/06/21 12/08/21 PSA <=6.20 ng/mL 5.02 NT-proBNP <=450 pg/mL 2,618 (A) Trop T hs <=22 ng/L 19 (A) Abnormal value Comments are available for some flowsheets but are not being displayed. No results found. 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 Hemoglobin 15.3 and hematocrit 47.7. PLAN: Receive phlebotomy today. Continue phlebotomies q [...] physician. NIURKA Sidhu Nurse Practitioner Medical Oncology [facility] documented in this encounter Miscellaneous Notes * Addendum Note - Brittany Bazzi CLT - 04/27/2022 10:45 AM CDTAddended by: BRITTANY BAZZI on: 07/08/2022 01:52 PM Modules accepted: Orders LE AND 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 documented in this encounter Plan of Treatment Not on file documented as of this encounter Results * (ABNORMAL) CBC with auto differential (11/18/2022 1:00 PM CDT) WBC 7.0 3.8 - 9.9 K/cumm [facility]) Hgb 14.8 13.0 - 17.5 g/dL [facility]) Hct 46.6 38.9 - 50.3 % [facility]) Plt 195 150 - 400 K/cumm [facility] ([facility]) MPV 10.4 9.1 - 12.3 fL [facility] [...] CDT Start in June us Monika Castellano PETROLEUM TERMINAL PLANT OPERATOR LAB BLOOD ORDERABLES Final Result [facility] 1 [facility] Department [place] [address] * (ABNORMAL) CBC with auto differential (09/22/2022 [...] 45.0 35.7 - 48.1 fL [facility]) NRBC abs Not Measured 0.00 - 0.01 K/cumm [facility]) Blood 09/22/2022 2:30 PM CDT 09/22/2022 2:31 PM CDT Narrative [facility] - 09/22/2022 2:33 PM CDT Start in June us oMnika Castellano NP LAB BLOOD ORDERABLES Final Result [facility] 1 [facility] Department [place] [address] * (ABNORMAL) CBC with auto differential (07/08/2022 1:55 PM MARBLE AND 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) WBC 5.7 3.8 - 9.9 K/cumm [facility]) Hgb 14.6 13.0 - 17.5 g/dL [facility]) Hct 45.4 38.9 - 50.3 % [facility]) Plt 163 150 - 400 K/cumm [facility]) MPV 10.9 9.1 - 12.3 fL [facility]) RBC 5.41 4.30 - 5.80 M/cumm [facility]) MCV 83.9 81.3 - 96.4 fL [facility]) MCH 27.0(L) 27.1 - 33.3 pg [facility]) MCHC 32.2(L) 32.3 - 35.7 g/dL [facility]) RDW CV 13.9 11.1 - 14.9 % [facility]) RDW SD 42.9 35.7 - 48.1 fL [facility]) NRBC abs Not Measured 0.00 - 0.01 K/cumm [facility]) Blood 07/08/2022 1:55 PM MARBLE AND 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 07/08/2022 1:58 PM MARBLE AND 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 Narrative [facility] ([facility] - 07/08/2022 2:01 PM MARBLE AND 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 Start in June us Monika Castellano PETROLEUM TERMINAL PLANT OPERATOR LAB BLOOD ORDERABLES Final Result [facility] 1 [facility] [employer] [place] [address] * (ABNORMAL) Iron profile w/ IBC (04/27/2022 9:40 AM CDT) Iron 31(L) 50 - 150 mcg/dL [facility] ([place] [facility]) TIBC 274 250 - 400 mcg/dL [facility] ([facility]) Transferrin saturation 11(L) 20 - 50 % [facility] ([facility]) Blood 04/27/2022 9:40 AM CDT 04/27/2022 9:50 AM CDT us Chintan Figueroa MD LAB BLOOD ORDERABLES Final Re sult [facility] ([facility] [address] [facility] [employer] [place] [address] documented in this encounter Visit Diagnoses Diagnosis Polycythemia- Primary Polycythemia, secondary Polycythemia Polycythemia, secondary Polycythemia Polycythemia, secondary Polycythemia Polycythemia, secondary documented in this encounter Orders Appointment Requests Count Last Ordered Date Fi rst Ordered Date ONCBCN CLINIC APPOINTMENT REQUEST 2 023 04/27/2022 documented in this encounter Care Teams Apartment Groundskeeper Relationship Specialty Start Date End Date Christine Herzog MD [address] [facility] [address] [place] [address] PCP - General Internal Medicine 12/02/21 Trey Pinedo MD [address] [facility] [address] [place] [address] Consulting Physician Neurology 05/09/19 Albert Craft MD [address] [place] [address] [address] [place] [address] Consulting Physician Gastroenterology 03/11/22 Chintan Figueroa MD [address] [place] [address] [address] [place] [address] Consulting Physician Hematology and Oncology 03/11/22 Jameel Bloom DPM [address] [place] [address] Consulting Physician Orthotics 03/11/22 Gadiel Genao MD [address] [place] [address] Surgeon Vascular Surgery 03/11/22 documented as of this encounter
--- OUTSIDE RECORDS SUMMARY | 2024-06-18 18:07 | XMS_ITS | Encounter Summary ---
Author Organization [facility] Address [address] [place] [address] Care Team Providers Care Pie Maker Name Role Phone Trey Pinedo MD Unavailable [phone] Christine Herzog MD Primary Care Provide r Albert Craft MD Unavailable [phone] Chintan Figueroa MD Unavailable [phone] Jameel Bloom DPM Unavailable [phone] Gadiel Genao MD Unavailable [phone] Encounter Details Date Type Department Care Team (Late st Contact Info) Description 04/19/[address] 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 A letter is being sent to the last known home address. Thank you, [employer] * Telephone Encounter - Tarah Elias - 04/19/2022 4:[address] Polo Ruby is referring this patient to [facility] memory clinic Dx: cognitive decline documented in this encounter Plan of Treatment Not on file documented as of this encounter Visit Diagnoses Not on filedocumented in this encounter Care Teams Pie Maker Relationship Specialty Start Date End Date Christine Herzog MD [address] [facility] [address] [place] [address] PCP - General Internal Medicine 12/02/21 Trey Pinedo MD [address] [place] [address] [address] [facility] [place] [address] Consulting Physician Neurology 05/09/19 Albert Craft MD [address] [facility] [address] [place] [address] Consulting Physician Gastroenterology 03/11/22 Chintan Figueroa MD [address] [facility] [address] [place] [address] Consulting Physician Hematology and Oncology 03/11/22 Jameel Bloom DPM [address] [place] [address] Consulting Physician Orthotics 03/11/22 Gadiel Genao MD [address] [place] [address] Surgeon Vascular Surgery 03/11/22 documented as of this encounter
--- OUTSIDE RECORDS SUMMARY | 2024-06-18 18:07 | XMS_ITS | Encounter Summary ---
Author Organization [facility] Address [address] [place] [address] Phone Care Team Providers Care Teradata Developer Name Role Phone Trey Pinedo MD Unavailable [phone] Christine Herzog MD Primary Care Provide r Albert Craft MD Unavailable [phone] Chintan Figueroa MD Unavailable [phone] Jameel Bloom DPM Unavailable [phone] Gadiel Genao MD Unavailable [phone] Encounter Details Date Type Department Care Team (Late st Contact Info) Description 04/21/2022 Telephone [facility] Oncology [address] [place] [address] Medical Office [facility] [address] [place] [address] Josefa Santana, NICAT Social History Tobacco Use [...] than three times a week 12/31/2020 Attends Faith Services Not on file 12/31 Active Member [...] on file 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 NURSE INTERN Gender Identity Not on file Sexual Orientation Straight 01/23/2021 10 :16 PM CDT documented as of this encounter Miscellaneous Notes * Telephone Encounter - Josefa Santana CLT - 04/21/2022 9:24 AM CDT LMOM TO RETURN CALL documented in this encounter Plan of Treatment Not on file documented as of this encounter Visit Diagnoses Not on filedocumented in this encounter Care Teams Teradata Developer Relationship Specialty Start Date End Date Christine Herzog MD [address] [facility] [address] [place] [address] PCP - General Internal Medicine 12/02/21 Trey Pinedo MD [address] [place] [address] [address] [place] [address] Consulting Physician Neurology 05/09/19 Albert Craft MD [address] [place] [address] [address] [place] [address] Consulting Physician Gastroenterology 03/11/22 Chintan Figueroa MD [address] [place] [address] [address] [place] [address] Consulting Physician Hematology and Oncology 03/11/22 Jameel Bloom DPM [address] [place] [address] Consulting Physician Orthotics 03/11/22 Gadiel Genao MD [address] [place] [address] Surgeon Vascular Surgery 03/11/22 documented as of this encounter
--- OUTSIDE RECORDS SUMMARY | 2024-06-18 18:07 | XMS_ITS | Encounter Summary ---
Author Organization [facility] Address [address] [place] [address] Care Team Providers Care Automobile Body Repair Supervisor Name Role Phone Trey Pinedo MD Unavailable Christine Herzog MD Primary Care Provide r Encounter Details Date Type Department Care Team (Late st Contact Info) Description 03/10/2022 Orders Only [facility] Primary Care at [address] [place] [address] Christine Herzog MD [address] [place] [address] [address] [place] [address] Essential hypertension (Primary Dx); Type 2 diabetes mellitus with hyperlipidemia (HCC); Screening for human immunodeficiency virus; Need for hepatitis C screening test; Elevated PSA; Screening for colon cancer Social History Tobacco Use Types Packs/Day Years [...] than three times a week 12/31/2020 Attends Pentecostal Services Not on file 12/31 Active Member [...] on file 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 Gender Identity Not on file Sexual Orientation Straight 01/23/2021 10 :16 PM CDT documented as of this encounter Plan of Treatment Not on file documented as of this encounter Visit Diagnoses Diagnosis Essential hypertension- Primary Unspecified essential hypertension Type 2 diabetes mellitus with hyperlipidemia (HCC) Screening for human immunodeficiency virus Special screening examination for other specified viral diseases Need for hepatitis C screening test Special screening examination for other specified viral diseases Elevated PSA Elevated prostate specific antigen (PSA) Screening for colon cancer Special screening for malignant neoplasms, colon documented in this encounter Care Teams Automobile Body Repair Supervisor Relationship Specialty Start Date End Date Christine Herzog MD [address] [place] [address] [place] [address] PCP - General Internal Medicine 12/02/21 Trey Pinedo MD [address] [facility] [address] [facility] [place] [address] Consulting Physician Neurology 05/09/19 documented as of this encounter
--- OUTSIDE RECORDS SUMMARY | 2024-06-18 18:07 | XMS_ITS | Encounter Summary ---
Author Organization [facility] Address [address] [place] [address] Care Team Providers Care Automatic Packer Operator Name Role Phone Trey Pinedo MD Unavailable [phone] Christine Herzog MD Primary Care Provide r Reason for Visit * Reason Comments transition of care [facility] 12/10/21, freque nt fall, rib fracture , weakness Encounter Details Date Type Department Care Team (Late st Contact Info) Description 12/15/2021 3:30 PM CDT Office Visit [facility] [address] [place] [address] Christine Herzog MD [address] [place] [address] [address] [place] [address] Hospital discharge follow-up (Primary Dx); Overweight with body mass index (BMI) of 26 to 26.9 in adult; Dizziness Social History Tobacco Use Types Packs/Day Years [...] than three times a week 12/31/2020 Attends [employer] Services Not on file 12/31 Active Member [...] on file 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 PHLEBOTOMY INSTRUCTOR Gender Identity Not on file Sexual Orientation Straight 01/23/2021 10 :16 PM CDT documented as of this encounter Last Filed Vital Signs Vital Sign Reading Time Taken Comments Blood Pressure 120/76 12/15/2021 3:34 PM CDT Pulse 56 12/15/2021 3:34 PM CDT Temperature - - Respiratory Rate 22 12/15/2021 3:34 PM CDT Oxygen Saturation - - Inhaled Oxygen Concentration - - Weight 82.6 kg (182 lb) 12/15/2021 3:34 PM CDT Height 175.3 cm (5' 9 ) 12/15/2021 3:34 PM CDT Body Mass Index 26.88 12/15/2021 3:34 PM CDT documented in this encounter Progress Notes * Christine Herzog MD - 12/15/2021 3:30 PM CDT Transition of Care Visit Patient ID: Villa Zuniga is a 76 y.o. male. Assessment/Plan There are no diagnoses linked to this encounter. Patient is seen in the office today for a transition of care visit, after a recent hospitalization.Initial phone contact was confirmed for the transition of care within two business days after discharge, and communication regarding aspects of care, education and support with activities of daily living is documented in the chart. Admission Date: 12/08/2021 Discharge Date: 12/10/2021 Date of Initial Post-discharge Interactive Contact: 12/10/2021 Complexity of Medical Decision Making: moderate Diagnoses and management options were considered. Medical records, diagnostic tests and other hospital data was reviewed. Subjective/Objective Chief Complaint No chief complaint on file. HPI 76M coming in for follow up for hospitalization. He fell on 11/30. Initially he did not want to go to the emergency room. When he tried to go to physical therapy he was in pain. He went to the hospital because he was in pain. Imaging showed a fracture of the 10th rib on the left. He was given lidocaine and oxycodone. It does not completely take away the pain but it does help. He mentioned some dizziness and feeling like he is falling backwards. He feels like the room is spinning. It usually occurs when he gets up and tries to take off. Does not feel like he is about to black out, no palpitations, no chest pain or any other symptoms. Allergies: Allergies Allergen Reactions ??? Ciprofloxacin Rash Reaction: RASH, Reaction: Rash, ??? Apple Current Medications: Outpatient Encounter Medications as of 12/15/2021 Medication Sig Dispense Refill ??? aspirin 81 mg tablet Take one by mouth one time per day 0 0 ??? atorvastatin (LIPITOR) 40 mg tablet Take 1 tablet (40 mg total) by mouth daily 30 tablet 5 ??? clopidogreL (PLAVIX) 75 mg tablet Take 1 tablet (75 mg total) by mouth daily 90 tablet 3 ??? finasteride (PROSCAR) 5 mg tablet Take 1 tablet (5 mg total) by mouth daily 90 tablet 3 ? ? lidocaine (LIDODERM) 5 % Place 1 patch on the skin daily Remove & discard patch within 12 hours or as directed by . 30 patch 0 ??? metoprolol XL (TOPROL-XL) 50 mg extended release tablet Take 1 tablet (50 mg total) by mouth daily 90 tablet 3 ??? oxyCODONE (ROXICODONE) 5 mg immediate release tablet Take 1 tablet (5 mg total) by mouth every 8 (eight) hours as needed for pain for up to 5 days 15 tablet 0 No facility-administered encounter medications on file as of 12/15/2021. I, Christine Herzog MD have personally reviewed all Hospital/ER data including [employer] andCare Everywhere if available. This patient's discharge medication list has been reviewed and reconciled with his medication list in the office chart and has also been reviewed with patient and/or caregiver. I have noted any changes. Past Medical History: Diagnosis Date ??? Mayo esophagus ??? Chronic obstructive pulmonary disease (CMS/HCC) (HCC) COPD ??? Diabetes mellitus (HCC) Diabetes ??? GERD (gastroesophageal reflux disease) ??? HX OTHER MEDICAL 2013 Heart stents ??? HX OTHER MEDICAL urinary stent s placed ??? Hyperlipidemia Hyperlipidemia ??? Hypertension Hypertension Past Surgical History: Procedure Laterality Date ??? COLONOSCOPY 2009 ??? OTHER SURGICAL HISTORY 2003 Carpal tunnel release both ??? OTHER SURGICAL HISTORY karen total knees ??? OTHER SURGICAL HISTORY 2012 Heart stents: [facility] Family History: Family History Problem Relation Age of Onset ??? Hypertension Mother Hypertension; ??? Heart disease Mother Heart disease; ??? Diabetes Mother Diabetes mellitus; ??? Stroke Mother 66 Stroke; ??? Cancer Mother Cancer; ??? Alzheimer's disease Father Alzheimer's Disease; Social History: Social History Socioeconomic History ??? Marital status: Spouse name: Not on file ??? Number of children: Not on file ??? Years of education: Not on file ??? Highest education level: Not on file Occupational History ??? Not on file Tobacco Use ??? Smoking status: Former Smoker Packs/day: 0.50 Years: 50.00 Pack years: 25.00 Types: Cigarettes Quit date: 2009 Years since quittin.4 ??? Smokeless tobacco: Never Used Vaping Use ??? Vaping Use: Never used Substance and Sexual Activity ??? Alcohol use: No ??? Drug use: No ??? Sexual activity: Defer Other Topics Concern ??? ADL RESPONSE ??? ADL RESPONSE ??? ADL RESPONSE Yes Comment: 16 oz coffee soda /day ??? ADL RESPONSE ??? ADL RESPONSE ??? ADL RESPONSE ??? ADL RESPONSE ??? ADL RESPONSE ??? ADL RESPONSE ??? ADL RESPONSE ??? ADL RESPONSE ??? ADL RESPONSE ??? ADL RESPONSE ??? ADL RESPONSE Social History Narrative ??? Not on file Social Determinants of Health Financial Resource Strain: Low Risk ??? Difficulty of Paying Living Expenses: Not very hard Food Insecurity: Not on file Transportation Needs: No Transportation Needs ??? Lack of Transportation (Medical): No ??? Lack of Transportation (Non-Medical): No Physical Activity: Not on file Stress: Not on file Social Connections: Unknown ??? Frequency of Communication with Friends and Family: More than three times a week ??? Frequency of Social Gatherings with Friends and Family: More than three times a week ??? Attends [employer]ist Services: Not on file ??? Active Member of Clubs or Organizations: Not on file ??? Attends Club or Organization Meetings: Not on file ??? Marital Status: Intimate Partner Violence: Not on file Housing Stability: Not on file Review of Systems: Review of Systems Physical Exam: There were no vitals taken for this visit. Physical Exam Metabolic Lab Results: There is no height or weight on file to calculate BMI. Glucose: Glucose Date Value Ref Range Status 12/08/2021 97 70 - 199 mg/dL Final Comment: Interpretive Data Fasting glucose >/= 126 mg/dl is diagnostic for diabetes. Fasting is defined as no caloric intake [...] classification and Diagnosis of Diabetes Diabetes Care 2017;40 (Suppl. 1):S11. Current interpretive data was last revised 2017. Lab Results Component Value Date WBC 7.9 12/08/2021 HGB 14.9 12/08/2021 HCT 46.7 12/08/2021 MCV 81.2 (L) 12/08/2021 Lab Results Component Value Date GLUCOSE 97 12/08/2021 CALCIUM 9.2 12/08/2021 SODIUM 140 12/08/2021 POTASSIUM 3.6 12/08/2021 CO2 25 12/08/2021 CHLORIDE 104 12/08/2021 BUNSER 21 12/08/2021 CREATININE 1.16 12/08/2021 Major Procedures and Tests: Major Procedures and Tests Performed During Inpatient Stay: Coordination of Home care services and follow-up with specialist appointments confirmed. Instructions have been provided to and reviewed with the patient/urgent care nurse practitioner prior to discharge. documented in this encounter Miscellaneous Notes * Assessment & Plan Note - Christine Herzog MD - 12/15/2021 6:29 PM CDT Associated Problem(s): Dizziness Orthostatics in office negative Referral to ENT given for evaluation of vertigo Can try scopolamine [id number] for symptomatic relief * Assessment & Plan Note - Christine Herzog MD - 12/15/2021 6:29 PM CDT Associated Problem(s): Hospital discharge follow-up (Resolved 03/22/2023) Medications reviewed. Hospital course reviewed documented in this encounter Plan of Treatment Not on file documented as of this encounter Visit Diagnoses Diagnosis Hospital discharge follow-up- Primary Other follow-up examination Overweight with body mass index (BMI) of 26 to 26.9 in adult Dizziness Dizziness and giddiness documented in this encounter Historical Medications * This list may reflect changes made after this encounter. esomeprazole DR (NexIUM) 40 mg capsule Take 40 mg by mouth daily as needed 09/19/2022 added in this encounter Care Teams Automatic Packer Operator Relationship Specialty Start Date End Date Christine Herzog MD [address] [place] [address] PCP - General Internal Medicine 12/02/21 Trey Pinedo MD [address] [place] [address] Consulting Physician Neurology 05/09/19 documented as of this encounter
--- OUTSIDE RECORDS SUMMARY | 2024-06-18 18:07 | XMS_ITS | Encounter Summary ---
Author Organization [facility] Address [address] [place] [address] Phone Care Team Providers Care Delivery Crew Worker Name Role Phone Trey Pinedo MD Unavailable [phone] Christine Herzog MD Primary Care Provide r Albert Craft MD Unavailable [phone] Chintan Figueroa MD Unavailable [phone] Jameel Bloom DPM Unavailable [phone] Lan Genao MD Unavailable [phone] Reason for Visit * Diagnostic Imaging (Routine) - Closed Specialty Diagnoses / Procedures Referred By Contac t Referred To Contact Diagnoses Carotid artery disease (HCC) PVD (peripheral vascular disease) (HCC) Procedures US Arterial Doppler Lower Extremity Bilateral Lan Genao MD Phone: tel: fax: [facility] (All Locations) Referral ID Status Reason Start Date Expiration Date Visits Re quested Visits Authorized [id number] Closed 05/25/2021 08/02/2022 99 99 Encounter Details Date Type Department Care Team (Latest Contact Info) Description 07/12/2022 1:45 PM LEAD ELECTRICIAN Ancillary Procedure [facility] [address] [place] [address] [place] [address] Carotid artery disease (CMS/HCC) ([facility]); PVD (peripheral vascular disease) (CMS/HCC) ([facility]) Social History Tobacco Use Types Packs/Day Years [...] than three times a week 12/31/2020 Attends [employer] Services Not on file 12/31 Active Member [...] on file 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 LEAD ELECTRICIAN Gender Identity Not on file Sexual Orientation Straight 01/23/2021 10 :16 PM CDT documented as of this encounter Plan of Treatment Not on file documented as of this encounter Procedures Procedure Name Priority Date/Time Associated Diagnosis Comments US ARTERIAL DOPPLER LOWER EXTREMITY BILATERAL Schedule Routine, Read Routine (OP Routine) 07/12/2022 3:19 PM LEAD ELECTRICIAN Carotid artery disease (CMS/HCC) (HCC) PVD (peripheral vascular disease) (CMS/HCC) (HCC) documented in this encounter Results * US Arterial Doppler Lower Extremity Bilateral (07/12/2022 3:19 PM LEAD ELECTRICIAN) Anatomical Region Laterality Modality Vascular Bilateral Ultrasound 07/12/2022 1:57 PM LEAD ELECTRICIAN Narrative 07/12/2022 3:25 PM LEAD ELECTRICIAN [facility] - Department of Vascular Surgery, Vascular Laboratory [address] [place] [address] Lower Extremity Arterial Doppler Report Patient Name: VERNA ZUNIGA : [id number] Study Date: 07/12/2022 1:57:00 PM Gender: M Tech: Location: [facility] Ref.Provider: LAN GENAO Quality: Adequate Order Provider: LAN GENAO Procedures: Arterial Report: Bilateral lower extremity arterial Doppler exam at rest. Indications: PVD (peripheral vascular disease). Measurements: Right - ?Left - ? Measurement ?Value ?Units ?Measurement ?Value ?Units ? Rt Brachial Pressure ? 212 ?mmHg ? Lt Brachial Pressure ? 219 ?mmHg ? Rt ROCKET ENGINE COMPONENT MECHANIC Pressure ?209 ?mmHg ? Lt ROCKET ENGINE COMPONENT MECHANIC Pressure ?236 ?mmHg ? Rt DPA Pressure ?202 ?mmHg ? Lt DPA Pressure ?180 ?mmHg ? Rt 1st Digit Pressure ?124 ?mmHg ? Lt 1st Digit Pressure ?133 ?mmHg ? Rt PT JUAN JOSE Resting ?0.95 ?Lt PT JUAN JOSE Resting ?1.08 ? Rt AT JUAN JOSE Resting ?0.92 ?Lt AT JUAN JOSE Resting ?0.82 ? Rt Digit/Arm Index ? 0.57 ?Lt Digit/Arm Index ? 0.61 ? Measurement ?Value ?Units ?Measurement ?Value ?Units ? Right - ?Left - ? - Findings: Performing Casting And Locker Room Servicer: Ame Goldstein RVT/ Nayeli Reyes (student). Right Common Femoral Artery Analysis: The common femoral artery waveform is multiphasic. Right Popliteal Artery Analysis: The popliteal waveform is multiphasic. Right Posterior Tibial Artery Analysis: The posterior tibial waveform is multiphasic. Right Anterior Tibial Artery Analysis: The anterior tibial waveform is monophasic. Left Common Femoral Artery Analysis: The common femoral artery waveform is multiphasic. Left Popliteal Artery Analysis: The popliteal waveform is multiphasic. Left Posterior Tibial Artery Analysis: The posterior tibial waveform is multiphasic. Left Anterior Tibial Artery Analysis: The anterior tibial waveform is monophasic. Conclusions: 1. The above listed Ankle/Brachial Indices at rest are within normal limits bilaterally (for reference, normal resting JUAN JOSE is 0.90 - >1.00; JUAN JOSE >1.00 due to incompressible arteries is not diagnostic). 2. Right Digit/Arm Index is abnormal (for reference, abnormal VELIA is <0.6). 3. Left Digit/Arm Index is within normal limits (for reference, normal VELIA is >0.6). 4. There is evidence of arterial insufficiency bilaterally at the level of anterior tibial artery. History: Carotid artery disease, CMS/HCC, PVD. Previous Studies: Previous study on 02/05/21 Rt 1.12 Lt 0.97. Disclaimer: The study images and the final report will be retained in the patient chart by the Vascular Laboratory for the legally required time period. This chart constitutes the legal record of any testing performed. Attestation: I have reviewed and interpreted the pertinent images and measurements of this study. I attest to the conclusions in the final report that is provided above. Electronically Signed By: Praful Quiros MD FACS 2022-07-12 15:25:48 LEAD ELECTRICIAN CC: CC: Procedure Note Praful Quiros MD - 07/12/2022 [facility] - Department of Vascular Surgery,Vascular Laboratory [address] [place] [address] Lower Extremity Arterial Doppler Report Patient Name: VERNA ZUNIGAPatient ID: [id number] : [id number] Date: 07/12/2022 1:57:00 PM Gender: MAccession #: [id number] Tech: Location: [facility] Ref.Provider: LAN GENAOQuality: Adequate Order Provider: LAN GENAO Procedures: Arterial Report: Bilateral lower extremity arterial Doppler exam at rest. Indications: PVD (peripheral vascular disease). Measurements: Right - Left - Measurement Value Units Measurement ValueUnits Rt Brachial Pressure 212 mmHg Lt Brachial Pressure 219mmHg Rt ROCKET ENGINE COMPONENT MECHANIC Pressure 209 mmHg Lt ROCKET ENGINE COMPONENT MECHANIC Pressure 236mmHg Rt DPA Pressure 202 mmHg Lt DPA Pressure 180mmHg Rt 1st Digit Pressure 124 mmHg Lt 1st Digit Pressure 133mmHg Rt PT JUAN JOSE Resting 0.95 Lt PT JUAN JOSE Resting 1.08 Rt AT JUAN JOSE Resting 0.92 Lt AT JUAN JOSE Resting 0.82 Rt Digit/Arm Index 0.57 Lt Digit/Arm Index 0.61 Measurement Value Units Measurement ValueUnits Right - Left - - Findings: Performing Casting And Locker Room Servicer: Ame Goldstein RVT/ Nayeli Reyes (student). Right Common Femoral Artery Analysis: The common femoral artery waveform is multiphasic. Right Popliteal Artery Analysis: The popliteal waveform is multiphasic. Right Posterior Tibial Artery Analysis: The posterior tibial waveform is multiphasic. Right Anterior Tibial Artery Analysis: The anterior tibial waveform is monophasic. Left Common Femoral Artery Analysis: The common femoral artery waveform is multiphasic. Left Popliteal Artery Analysis: The popliteal waveform is multiphasic. Left Posterior Tibial Artery Analysis: The posterior tibial waveform is multiphasic. Left Anterior Tibial Artery Analysis: The anterior tibial waveform is monophasic. Conclusions: 1. The above listed Ankle/Brachial Indices at rest are within normallimits bilaterally (for reference, normal resting JUAN JOSE is 0.90 - >1.00; JUAN JOSE >1.00 due toincompressible arteries is not diagnostic). 2. Right Digit/Arm Index is abnormal (for reference, abnormal VELIA is<0.6). 3. Left Digit/Arm Index is within normal limits (for reference, normal DAIis >0.6). 4. There is evidence of arterial insufficiency bilaterally at the level ofanterior tibial artery. History: Carotid artery disease, CMS/HCC, PVD. Previous Studies: Previous study on 02/05/21 Rt 1.12 Lt 0.97. Disclaimer: The study images and the final report will be retained in the patientchart by the Vascular Laboratory for the legally required time period. This chartconstitutes the legal record of any testing performed. Attestation: I have reviewed and interpreted the pertinent images and measurements ofthis study. I attest to the conclusions in the final report that is provided above. Electronically Signed By: Praful Quiros MD [facility] 2022-07-12 15:25:48 LEAD ELECTRICIAN CC: CC: us Lan Genao MD IMG US PROCEDURES Final Re sult documented in this encounter Visit Diagnoses Diagnosis Carotid artery disease (HCC) Unspecified disorders of arteries and arterioles PVD (peripheral vascular disease) (HCC) Unspecified peripheral vascular disease documented in this encounter Care Teams Delivery Crew Worker Relationship Specialty Start Date End Date Christine Herzog MD [address] [place] [address] PCP - General Internal Medicine 12/02/21 Trey Pinedo MD [address] [place] [address] [address] [place] [address] Consulting Physician Neurology 05/09/19 Albert Craft MD [address] [place] [address] Consulting Physician Gastroenterology 03/11/22 Chintan Figueroa MD [address] [place] [address] Consulting Physician Hematology and Oncology 03/11/22 Jameel Bloom DPM [address] [place] [address] Consulting Physician Orthotics 03/11/22 Lan Genao MD [address] [place] [address] Surgeon Vascular Surgery 03/11/22 documented as of this encounter
--- OUTSIDE RECORDS SUMMARY | 2024-06-18 18:07 | XMS_ITS | Encounter Summary ---
Author Organization [facility] Address [address] [place] [address] Care Team Providers Care Charcoal Burner Beehive Kiln Name Role Phone Trey Pinedo MD Unavailable [phone] Christine Herzog MD Primary Care Provide r Albert Craft MD Unavailable [phone] Chintan Figueroa MD Unavailable [phone] Jameel Bloom DPM Unavailable [phone] Gadiel Genao MD Unavailable [phone] Reason for Visit * Reason Comments Phlebotomy Encounter Details Date Type Department Care Team (Late st Contact Info) Description 07/08/2022 3:30 PM REGION MANAGER Infusion [facility] [address] [place] [address] Polycythemia (Primary Dx) Social History Tobacco Use [...] on file 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 REGION MANAGER Gender Identity Not on file Sexual Orientation Straight 01/23/2021 10 :16 PM CDT documented as of this encounter Last Filed Vital Signs Vital Sign Reading Time Taken Comments Blood Pressure 146/61 07/08/2022 2:49 PM REGION MANAGER Pulse 58 07/08/2022 2:49 PM REGION MANAGER Temperature 36.6 ??C (97.9 ??F) 07/08/2022 2:49 PM CS T Respiratory Rate 20 07/08/2022 2:16 PM REGION MANAGER Oxygen Saturation 97% 07/08/2022 2:49 PM REGION MANAGER Inhaled Oxygen Concentration - - Weight - - Height - - Body Mass Index - - documented in this encounter Nursing Notes * Haydee Ricks RN - 07/08/2022 3:30 PM CST Pt presented to the infusion center per for a phlebotomy. pts vitals signs are stable and no questions or concerns. Labs done prior and reviewed Therapeutic phlebotomy required. Phlebotomy performed Pt tolerated well vitals done post treatment. Pt discharged after observation and left in stable condition. ON MANAGER documented in this encounter Plan of Treatment Not on file documented as of this encounter Visit Diagnoses Diagnosis Polycythemia- Primary Polycythemia, secondary documented in this encounter Orders Nursing Count Last Ordered Date First Orde red Date ONCBCN THERAPEUTIC PHLEBOTOMY 1 07/08/2022 Appointment Requests Count Last Ordered Date Fi rst Ordered Date ONCBCN THERAPEUTIC PHLEBOTOM Y APPOINTMENT REQUEST 1 07/08/2022 documented in this encounter Care Teams Charcoal Burner Beehive Kiln Relationship Specialty Start Date End Date Christine Herzog MD [address] [place] [address] PCP - General Internal Medicine 12/02/21 Trey Pinedo MD [address] [place] [address] [address] [place] [address] Consulting Physician Neurology 05/09/19 Albert Craft MD [address] [place] [address] Consulting Physician Gastroenterology 03/11/22 Chintan Figueroa MD [address] [place] [address] Consulting Physician Hematology and Oncology 03/11/22 Jameel Bloom DPM [address] [place] [address] Consulting Physician Orthotics 03/11/22 Gadiel Genao MD [address] [place] [address] Surgeon Vascular Surgery 03/11/22 documented as of this encounter
--- OUTSIDE RECORDS SUMMARY | 2024-06-18 18:07 | XMS_ITS | Encounter Summary ---
Author Organization [facility] Healthcare Address [address] [place] [address] Care Team Providers Care Channel Marketing Manager Name Role Phone Trey Pinedo MD Unavailable [phone] Christine Herzog MD Primary Care Provide r Albert Craft MD Unavailable [phone] Chintan Figueroa MD Unavailable [phone] Jameel Bloom DPM Unavailable [phone] Gadiel Genao MD Unavailable [phone] Encounter Details Date Type Department Care Team (Late st Contact Info) Description 07/08/2022 3:00 PM BAND AND CUFF CUTTER Lab [facility] 4 [facility] [address] [place] [id number] Polycythemia Social History Tobacco Use Types Packs/Day [...] than three times a week 12/31/2020 Attends Buddhism Services Not on file 12/31 Active Member [...] on file 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 BAND AND CUFF CUTTER Gender Identity Not on file Sexual Orientation Straight 01/23/2021 10 :16 PM CDT documented as of this encounter Last Filed Vital Signs Vital Sign Reading Time Taken Comments Blood Pressure 186/84 07/08/2022 2:01 PM BAND AND CUFF CUTTER Pulse 84 07/08/2022 2:01 PM BAND AND CUFF CUTTER Temperature 36.3 ??C (97.3 ??F) 07/08/2022 2:01 PM CS T Respiratory Rate 20 07/08/2022 2:01 PM BAND AND CUFF CUTTER Oxygen Saturation 94% 07/08/2022 2:01 PM BAND AND CUFF CUTTER Inhaled Oxygen Concentration - - Weight 80.7 kg (177 lb 14.4 oz) 07/08/2022 2:01 PM BAND AND CUFF CUTTER Height 176.5 cm (5' 9.5 ) 07/08/2022 2:01 PM BAND AND CUFF CUTTER Body Mass Index 25.89 07/08/2022 2:01 PM BAND AND CUFF CUTTER documented in this encounter Plan of Treatment Not on file documented as of this encounter Procedures Procedure Name Priority Date/Time Associated Diagnosis Comments DIFFERENTIAL AUTO Routine 07/08/2022 1:5 5 PM BAND AND CUFF CUTTER Polycythemia CBC WITH AUTO DIFFERENTIAL Routine 07/08/2022 1:55 PM BAND AND CUFF CUTTER Polycythemia documented in this encounter Results * Differential, auto (07/08/2022 1:55 PM BAND AND CUFF CUTTER) Neutrophil abs 3.6 1.7 - 6.5 K/cumm [facility] ([place]) Imm gran abs 0.0 0.0 - 0.1 K/cumm [facility] ([place]) Lymphocyte abs 1.2 0.8 - 3.3 K/cumm [facility] ([place]) Monocyte abs 0.6 0.2 - 0.8 K/cumm [facility] ([place]) Eosinophil abs 0.2 0.0 - 0.5 K/cumm [facility] ([place]) Basophil abs 0.1 0.0 - 0.1 K/cumm [facility] ([place]) Neutrophil pct 62.6 % [facility] ([place]) Comment: Interpretive [...] was last revised on 2017. Lymphocyte pct 20.9 % [facility] ([place]) Comment: Interpretive Data Percent cell count reference ranges are not reported, since discordance with absolute values may lead to misinterpretation of CBC data. Current Interpretive Data was last revised on 2017. Monocyte pct 11.2 % [facility] ([place]) Comment: Interpretive Data Percent cell count reference ranges are not reported, since discordance with absolute values may lead to misinterpretation of CBC data. Current Interpretive Data was last revised on 2017. Eosinophil pct 3.9 % [facility] ([place]) Comment: Interpretive Data Percent cell count reference ranges are not reported, since discordance with absolute values may lead to misinterpretation of CBC data. Current Interpretive Data was last revised on 2017. Basophil pct 1.2 % [facility] ([place]) Comment: Interpretive Data Percent cell count reference ranges are not reported, since discordance with absolute values may lead to misinterpretation of CBC data. Current Interpretive Data was last revised on 2017. Blood 07/08/2022 1:55 PM BAND AND CUFF CUTTER 07/08/2022 1:58 PM BAND AND CUFF CUTTER us Monika Castellano NP LAB BLOOD ORDERABLES Final Result [facility] ([place]) 1 [facility] Department [place] [address] * (ABNORMAL) CBC with auto differential (07/08/2022 1:55 PM BAND AND CUFF CUTTER) WBC 5.7 3.8 - 9.9 K/cumm [facility] [...] [facility]) Blood 07/08/2022 1:55 PM BAND AND CUFF CUTTER 07/08/2022 1:58 PM BAND AND CUFF CUTTER Narrative [facility] ([place]) - 07/08/2022 2:01 PM BAND AND CUFF CUTTER Start in June Monika Castellano FAMILY PRACTICE MEDICAL DOCTOR LAB BLOOD ORDERABLES Final Result [facility] ([place]) 1 [facility] Department [place] [address] documented in this encounter Visit Diagnoses Diagnosis Polycythemia Polycythemia, secondary documented in this encounter Orders Appointment Requests Count Last Ordered Date Fi rst Ordered Date ONCBCN LAB APPOINTMENT 1 07/08/2022 documented in this encounter Care Teams Channel Marketing Manager Relationship Specialty Start Date End Date Christine Herzog MD [address] [facility] [address] [place] [address] PCP - General Internal Medicine 12/02/21 Trey Pinedo MD [address] [place] [address] [address] [place] [address] Consulting Physician Neurology 05/09/19 Albert Craft MD [address] [facility] [address] [place] [address] Consulting Physician Gastroenterology 03/11/22 Chintan Figueroa MD [address] [facility] [address] [place] [address] Consulting Physician Hematology and Oncology 03/11/22 Jameel Bloom DPM [address] [place] [address] Consulting Physician Orthotics 03/11/22 Gadiel Genao MD [address] [place] [address] Surgeon Vascular Surgery 03/11/22 documented as of this encounter
--- OUTSIDE RECORDS SUMMARY | 2024-06-18 18:07 | XMS_ITS | Encounter Summary ---
Author Organization [facility] Medical Group Address [address] [facility] [address] [place] [address] Care Team Providers Care Filter Press Pumper Name Role Phone Trey Pinedo MD Unavailable [phone] Christine Herzog MD Primary Care Provide r Albert Craft MD Unavailable [phone] Chintan Figueroa MD Unavailable [phone] Jameel Bloom DPM Unavailable [phone] Gadiel Genao MD Unavailable [phone] Reason for Visit * Reason Comments Medicare Wellness Encounter Details Date Type Department Care Team (Late st Contact Info) Description 03/10/2022 4:00 PM CDT Office Visit [facility] Primary Care at [address] [place] [address] Christine Herzog MD [address] [place] [address] [address] [place] [address] Mixed hyperlipidemia (Primary Dx); BMI 26.0-26.9,adult; Essential hypertension; Coronary artery disease involving [place] coronary artery of [place] heart without angina pectoris; Bilateral carotid artery disease (CMS/HCC) (HCC); Type 2 diabetes mellitus with hyperlipidemia (HCC); Chronic GERD; Medicare annual wellness visit, subsequent; Benign prostatic hyperplasia with lower urinary tract symptoms, symptom details unspecified; Obstructive sleep apnea Social History Tobacco Use Types Packs/Day Years Used Date Smoking Tobacco: Former Cigarettes 0.5 50 1 959 - 2009 Smokeless Tobacco: Never Tobacco Cessation:Counseling [...] than three times a week 12/31/2020 Attends Muslim Services Not on file 12/31 Active Member [...] on file 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 Gender Identity Not on file Sexual Orientation Straight 01/23/2021 10 :16 PM CDT documented as of this encounter Last Filed Vital Signs Vital Sign Reading Time Taken Comments Blood Pressure 160/80 03/10/2022 3:35 PM CDT recheck 158 /80 Pulse 77 03/10/2022 3:35 PM CDT Temperature - - Respiratory Rate 20 03/10/2022 3:35 PM CDT Oxygen Saturation 96% 03/10/2022 3:3 5 PM CDT Inhaled Oxygen Concentration - - Weight 81.6 kg (180 lb) 03/10/2022 3:35 PM CDT Height 176.5 cm (5' 9.5 ) 03/10/2022 3: 35 PM CDT Body Mass Index 26.2 03/10/2022 3:35 PM CDT documented in this encounter Progress Notes * Christine Hrezog MD - 03/10/2022 4:00 PM CDT MEDICARE SUBSEQUENT ANNUAL WELLNESS VISIT [place] Medicare Health Risk Assessment Basic Information In general, would you say your health is: Good Do you have an advance directive, such as a living will or durable power of deputy prosecuting attorney?: Yes Do you have to strain or struggle to hear/understand conversations?: Yes Have you experienced any of the following problems currently or recently? Eating: No Grooming: No Bathing: No Walking: Yes Using the toilet: No Memory problems: Yes Difficulty speaking: No Pain: No Sexual Health: No Fatigue: No Have you experienced any of the following problems currently or recently? Laundry and/or housekeeping: No Handling Money: No Shopping: No Food preparation: No Transportation: No Taking and/or getting your own medications: No Do you use prescription drugs that are not prescribed for you?: No See scanned HRA documents HPI 76-year-old male with history of type 2 diabetes, hypertension, TIA, obstructive sleep apnea, elevated PSA, BPH, GERD who is coming in for a wellness exam. Son did express concern about his short term memory. He refuses to use a cpap machine. He also refuses vaccines. He has no concerns Problem List, Past Medical and Surgical History: Patient Active Problem List Diagnosis Hyperlipidemia Benign prostatic hyperplasia with lower urinary tract symptoms Essential hypertension Medicare annual wellness visit, subsequent Kidney stones Sensorineural hearing loss, bilateral Polycythemia Bladder stones Coronary artery disease involving [place] coronary artery of [place] heart without angina pectoris Chronic GERD History of colon polyps TIA (transient ischemic attack) History of noncompliance with medical treatment Cerebrovascular arteriosclerosis Bilateral carotid artery disease (CMS/HCC) (HCC) 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 Hypersomnia Obstructive sleep apnea Closed fracture of one rib of right side Closed fracture of one rib of right side, initial encounter Generalized weakness Elevated brain natriuretic peptide (BNP) level Hospital discharge follow-up Dizziness Past Medical History: Diagnosis Date Mayo esophagus Chronic obstructive pulmonary disease (CMS/HCC) (HCC) COPD Diabetes mellitus (HCC) Diabetes GERD (gastroesophageal reflux disease) HX OTHER MEDICAL 2012 Heart stents HX OTHER MEDICAL urinary stent s placed Hyperlipidemia Hyperlipidemia Hypertension Hypertension Past Surgical History: Procedure Laterality Date COLONOSCOPY 2009 OTHER SURGICAL HISTORY 2002 Carpal tunnel release both OTHER SURGICAL HISTORY karen total knees OTHER SURGICAL HISTORY 2012 Heart stents: [facility] Family History: Family History Problem Relation Age of Onset Hypertension Mother Hypertension; Heart disease Mother Heart disease; Diabetes Mother Diabetes mellitus; Stroke Mother 66 Stroke; Cancer Mother Cancer; Alzheimer's disease Father Alzheimer's Disease; Social History: Social History Tobacco Use Smoking status: Former Packs/day: 0.50 Years: 50.00 Pack years: 25.00 Types: Cigarettes Quit date: 2008 Years since quittin.6 Smokeless tobacco: Never Substance and Sexual Activity Drug use: No Sexual activity: Defer Alcohol Use: Not At Risk Frequency of Alcohol Consumption: Never Average Number of Drinks: Not on file Frequency of Binge Drinking: Not on file denies alcohol use, denies tobacco use, and denies illicit drug use Allergies: Allergies Allergen Reactions Ciprofloxacin Rash Reaction: RASH, Reaction: Rash, Medications: Current Outpatient Medications: aspirin 81 mg tablet, Take one by mouth one time per day, Disp: 0, Rfl: 0 atorvastatin (LIPITOR) 40 mg tablet, Take 1 tablet (40 mg total) by mouth daily, Disp: 30 tablet, Rfl: 5 clopidogreL (PLAVIX) 75 mg tablet, Take 1 tablet (75 mg total) by mouth daily, Disp: 90 tablet, Rfl: 3 finasteride (PROSCAR) 5 mg tablet, Take 1 tablet (5 mg total) by mouth daily, Disp: 90 tablet, Rfl:3 metoprolol XL (TOPROL-XL) 50 mg extended release tablet, Take 1 tablet (50 mg total) by mouth daily, Disp: 90 tablet, Rfl: [address] (NexIUM) 40 mg capsule, Take 40 mg by mouth daily as needed (Patient not taking: Reported on 03/10/2022), Disp: , Rfl: lidocaine (LIDODERM) 5 %, Place 1 patch on the skin daily Remove & discard patch within 12 hours or as directed by MD. (Patient not taking: Reported on 03/10/2022), Disp: 30 patch, Rfl: 0 Depression Screen: PHQ Screening PHQ-2 Total Score (If total score is 3 or more points, staff should administer the PHQ-9): 0 Vitals: Vitals BP 160/80 (BP Location: Right arm, Patient Position: Sitting) Pulse 77 Resp 20 Ht 176.5 cm (5' 9.5 ) Wt 81.6 kg (180 lb) SpO2 96% BMI 26.20 kg/m?? Body mass index is 26.2 kg/m??. ROS: Review of Systems Constitutional: Negative [...] as Surgeon (Vascular Surgery) Primary Pharmacy/DME suppliers: [id number] - [place], [place] - [facility] [address] [place] [address] [place] [address] [facility] - [facility] [address] [address] Detection of Cognitive Impairment: The patient does have cognitive impairment based on direct observation, discussion with patient or family, or review of medical records. Health Maintenance: Health Maintenance Topics with due status: Overdue Topic Date Due Pneumococcal vaccine 65+ Never done Zoster Vaccines Never done DTaP/Tdap/Td Vaccine 12/18/2017 Colon Cancer Screening-Colonoscopy 01/09/2021 Foot Exam 08/27/2021 Urine Microalbumin 08/27/2021 Lung Cancer Screening 09/09/2021 Dilated Eye Exam 02/02/2022 Health Maintenance Topics with due status: Due On Topic Date Due Influenza Vaccine 03/03/2022 Health Maintenance Topics with due status: Not Due Topic Last Completion Date Prostate Cancer Screening-PSA 10/06/2021 Hemoglobin A1C 10/06/2021 Lipid Panel 11/02/2021 Fall Risk Assessment 03/10/2022 Depression Screening-PHQ 03/10/2022 Well Visit 65+ 03/10/2022 Health Maintenance Topics with due status: Completed Topic Last Completion Date Hepatitis C Screening 06/17/2016 Covid-19 Vaccine 09/06/2021 Abdominal Aortic Aneurysm (AAA) Screen 12/08/2021 Counseling and Referral of Preventative Services: Lifestyle Recommendations Increase Physical Activity, Reduce Weight, and Improve Diet Advanced Directive Durable Power of Agile Project Manager: Yes Living Will: Yes Assessment and Plan: Diagnoses and all orders for this visit: Mixed hyperlipidemia (Primary) Assessment & Plan: Stable / clinically quiescent. Will continue to monitor. Continue atorvastatin 40mg daily BMI 26.0-26.9,adult Essential hypertension Assessment & Plan: Bp in the office today BP Readings from Last 1 Encounters: 03/10/22 160/80 Continue current regimen of metoprolol 50mg daily Recommend DASH diet, heart-healthy lifestyle, exercise. Discussed the risks of hypertension. Coronary artery disease involving [place] coronary artery of [place] heart without angina pectoris Assessment & Plan: Stable / clinically quiescent. Will continue to monitor. 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 Will continue to monitor. Continue with nexium as needed. Has not needed Medicare annual wellness visit, subsequent Assessment & Plan: Recent cbc, cmp and lipid reviewed PSA ordered Declines flu and pneumonia vaccine Colonoscopy: cologaurd ordered F/u in 1 year for annual F/u in 1 month for MMSE Benign prostatic hyperplasia with lower urinary tract symptoms, symptom details unspecified Assessment & Plan: PSA ordered If still elevated will send to urology Obstructive sleep apnea Assessment & Plan: Refuses cpap machine Patient here for annual Medicare wellness visit [...] Plan Note - Christine Herzog MD - 03/10/2022 5:30 PM CDT Associated Problem(s): Medicare annual wellness visit, subsequent Recent cbc, cmp and lipid reviewed PSA ordered Declines flu and pneumonia vaccine Colonoscopy: cologaurd ordered F/u in 1 year for annual F/u in 1 month for MMSE * Assessment & Plan Note - Christine Herzog MD - 03/10/2022 5:29 PM CDT Associated Problem(s): Obstructive sleep apnea Refuses cpap machine * Assessment & Plan Note - Christine Herzog MD - 03/10/2022 5:29 PM CDT Associated Problem(s): Benign prostatic hyperplasia with lower urinary tract symptoms PSA ordered If still elevated will send to urology * Assessment & Plan Note - Christine Herzog MD - 03/10/2022 4:07 PM CDT Associated Problem(s): Chronic GERD Stable / clinically quiescent. Will continue to monitor. Continue with nexium as needed. Has not needed * Assessment & Plan Note - Christine Herzog MD - 03/10/2022 4:07 PM CDT Associated Problem(s): Type 2 diabetes [...] ur ratio ordered F/u in 3 months * Assessment & Plan Note - Christine Herzog MD - 03/10/2022 4:05 PM CDT Associated Problem(s): Bilateral carotid artery disease (HCC) Continue Following with vascular surgery * Assessment & Plan Note - Christine Herzog MD - 03/10/2022 4:03 PM CDT Associated Problem(s): Coronary artery disease involving [place] coronary artery of [place] heart without angina pectoris Stable / clinically quiescent. Will continue to monitor. Continue with asa and plavix and statin * Assessment & Plan Note - Christine Herzog MD - 03/10/2022 4:02 PM CDT Associated Problem(s): Essential hypertension Bp in the office today BP Readings from Last 1 Encounters: 03/10/22 160/80 Continue current regimen of metoprolol 50mg daily Recommend DASH diet, heart-healthy lifestyle, exercise. Discussed the risks of hypertension. * Assessment & Plan Note - Christine Herzog MD - 03/10/2022 4:02 PM CDT Associated Problem(s): Hyperlipidemia Stable / clinically quiescent. Will continue to monitor. 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) Chronic GERD Medicare annual wellness visit, subsequent Benign prostatic hyperplasia with lower urinary tract symptoms, symptom details unspecified Obstructive sleep apnea Obstructive sleep apnea (adult) (pediatric) documented in this encounter Care Teams Filter Press Pumper Relationship Specialty Start Date End Date Christine Herzog MD [address] [facility] [place] [address] PCP - General Internal Medicine 12/02/21 Trey Pinedo MD [address] [place] [address] [address] [place] [address] Consulting Physician Neurology 05/09/19 Albert Craft MD [address] [place] [address] [address] [place] [address] Consulting Physician Gastroenterology 03/11/22 Chintan Figueroa MD [address] [place] [address] [address] [place] [address] Consulting Physician Hematology and Oncology 03/11/22 Jameel Bloom DPM [address] [place] [address] Consulting Physician Orthotics 03/11/22 Gadiel Genao MD [address] [place] [address] Surgeon Vascular Surgery 03/11/22 documented as of this encounter
--- OUTSIDE RECORDS SUMMARY | 2024-06-18 18:07 | XMS_ITS | Encounter Summary ---
Author Organization [facility] Medical Group Address [address] [place] [address] Care Team Providers Care Literacy Coordinator Name Role Phone Trey Pinedo MD Unavailable [phone] Christine Herzog MD Primary Care Provide r Encounter Details Date Type Department Care Team (Late st Contact Info) Description 12/13/2021 Telephone [facility] 2 [facility] [address] [place] [address] Christine Herzog MD 2 [facility] [address] [place] [address] Social History Tobacco Use Types [...] than three times a week 12/31/2020 Attends Protestant Services Not on file 12/31 Active Member [...] points, staff should administer the PHQ-9) 0 11/03/2021 PRAPARE - Transportation Answer Date Re corded [...] on file 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 Please advise [phone] Ok to leave message on secure VM documented in this encounter Plan of Treatment Not on file documented as of this encounter Visit Diagnoses Not on filedocumented in this encounter Care Teams Literacy Coordinator Relationship Specialty Start Date End Date Christine Herzog MD [address] [facility] [address] [place] [address] PCP - General Internal Medicine 12/02/21 Trey Pinedo MD [address] [facility] [address] [place] [address] Consulting Physician Neurology 05/09/19 documented as of this encounter
--- OUTSIDE RECORDS SUMMARY | 2024-06-18 18:07 | XMS_ITS | Encounter Summary ---
Author Organization [facility] Medical Group Address [address] [facility] [address] [place] [address] Care Team Providers Care Resident Services Director Name Role Phone Trey Pinedo MD Unavailable [phone] Christine Herzog MD Primary Care Provide r Encounter Details Date Type Department Care Team (Late st Contact Info) Description 12/15/2021 Orders Only [facility] 2 [facility] [address] [place] [address] Christine Herzog MD 2 [facility] [address] [place] [address] Vertigo (Primary Dx) Social History Tobacco Use Types [...] than three times a week 12/31/2020 Attends Jehovah'S Witness Services Not on file 12/31 Active Member [...] on file 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 Gender Identity Not on file Sexual Orientation Straight 01/23/2021 10 :16 PM CDT documented as of this encounter Progress Notes * Araseli Rasmussen - 12/15/2021 4:18 PM CDT re documented in this encounter Plan of Treatment Not on file documented as of this encounter Visit Diagnoses Diagnosis Vertigo- Primary Dizziness and giddiness documented in this encounter Care Teams Resident Services Director Relationship Specialty Start Date End Date Christine Herzog MD [address] [facility] [address] [place] [address] PCP - General Internal Medicine 12/02/21 Trey Pinedo MD [address] [facility] [address] [place] [address] Consulting Physician Neurology 05/09/19 documented as of this encounter
--- OUTSIDE RECORDS SUMMARY | 2024-06-18 18:07 | XMS_ITS | Encounter Summary ---
Author Organization [facility] Address [address] [place] [address] Care Team Providers Care Rodeo Rider Name Role Phone Trey Pinedo MD Unavailable [phone] Christine Herzog MD Primary Care Provide r Encounter Details Date Type Department Care Team (Late st Contact Info) Description 12/10/2021 Telephone [facility] [address] [facility] [address] [place] [address] Christine Herzog MD [address] [facility] [address] [place] [address] Social History Tobacco Use Types [...] than three times a week 12/31/2020 Attends Jainism Services Not on file 12/31 Active Member [...] on file 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 Pt son Ian states pt has been tolerating pain well with lidocaine patches and taking oxycodone once or twice a day. Any medication changes or questions? Not at this time. Medication reconciliation was completed on patient [facility]. Do you have transportation for your visit? yes Any other questions or concerns? Pt son Ian wants to discuss having pt see ENT at [facility] tomorrow for possible vertigo. * Telephone Encounter - Linda Jordan MA - 12/14/2021 8:38 AM CDT Lmom to call back * Telephone Encounter - Linda Jordan MA - 12/13/2021 9:50 AM CDT Lmom to call back * Telephone Encounter - Linda Jordan MA - 12/10/2021 10:32 AM CDT Will postpone a couple days to allow time for D/C * Telephone Encounter - Grace Redmond - 12/10/2021 10:15 AM CDT Altaf with [facility] hospitalists group called and jazmin pt for GULSHAN with ELIZA 12/15/21. Pt jazmin to be d/c later on today. documented in this encounter Plan of Treatment Not on file documented as of this encounter Visit Diagnoses Not on filedocumented in this encounter Care Teams Rodeo Rider Relationship Specialty Start Date End Date Christine Herzog MD [address] [facility] [address] [place], [place] [address], [place] [address] PCP - General Internal Medicine 12/02/21 Trey Pinedo MD [address] [facility] [address] [place] [address] Consulting Physician Neurology 05/09/19 documented as of this encounter
--- OUTSIDE RECORDS SUMMARY | 2024-06-18 18:07 | XMS_ITS | Encounter Summary ---
Author Organization [facility] Address [address] [place] [address] Care Team Providers Care Cut Off Machine Unloader Name Role Phone Trey Pinedo MD Unavailable [phone] Christine Herzog MD Primary Care Provide r Albert Craft MD Unavailable [phone] Chintan Figueroa MD Unavailable [phone] Jameel Bloom DPM Unavailable [phone] Gadiel Genao MD Unavailable [phone] Encounter Details Date Type Department Care Team (Late st Contact Info) Description 04/27/2022 10:15 AM CDT Lab [facility] [address] [facility] [address] [place] [address] Polycythemia Social History Tobacco Use Types Packs/Day [...] than three times a week 12/31/2020 Attends Pentecostalism Services Not on file 12/31 Active Member [...] on file 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 Gender Identity Not on file Sexual Orientation Straight 01/23/2021 10 :16 PM CDT documented as of this encounter Plan of Treatment Not on file documented as of this encounter Procedures Procedure Name Priority Date/Time Associated Diagnosis Comments DIFFERENTIAL AUTO STAT 04/27/2022 9:4 0 AM CDT Polycythemia IRON PROFILE W/ IBC Routine 04/27/2022 9 :40 AM CDT Polycythemia CBC WITH AUTO DIFFERENTIAL STAT 04/27/2022 9:40 AM CDT Polycythemia documented in this encounter Results * Differential, auto (04/27/2022 9:40 AM CDT) Neutrophil abs 3.2 1.7 - 6.5 K/cumm [facility] ([facility]) Imm gran abs 0.0 0.0 - 0.1 K/cumm [facility] ([facility]) Lymphocyte abs 1.4 0.8 - 3.3 K/cumm [facility] ([place]) Monocyte abs 0.6 0.2 - 0.8 K/cumm [facility] ([place]) Eosinophil abs 0.3 0.0 - 0.5 K/cumm [facility] ([place]) Basophil abs 0.1 0.0 - 0.1 K/cumm [facility] ([place]) Neutrophil pct 56.9 % [facility] ([place]) Comment: Interpretive [...] was last revised on 2017. Lymphocyte pct 24.8 % [facility] ([place]) Comment: Interpretive Data Percent cell count reference ranges are not reported, since discordance with absolute values may lead to misinterpretation of CBC data. Current Interpretive Data was last revised on 2017. Monocyte pct 10.8 % [facility] ([place]) Comment: Interpretive Data Percent cell count reference ranges are not reported, since discordance with absolute values may lead to misinterpretation of CBC data. Current Interpretive Data was last revised on 2017. Eosinophil pct 5.5 % [facility] ([place]) Comment: Interpretive [...] Data was last revised on 2017. Blood 04/27/2022 9:40 AM CDT 04/27/2022 9:40 AM CDT Chintan Figueroa MD LAB BLOOD ORDERABLES Final Re sult Performing Organization Address City/[facility]/ZIP Co de Phone Number [facility] ([place]) [address] [facility] [place] [address] * (ABNORMAL) Iron profile w/ IBC (04/27/2022 9:40 AM CDT) Pathologist [facility] Iron 31(L) 50 - 150 mcg/dL [facility] ([place]) TIBC 274 250 - 400 mcg/dL [facility] ([place]) Transferrin saturation 11(L) 20 - 50 % [facility] ([place]) Blood 04/27/2022 9:40 AM CDT 04/27/2022 9:50 AM CDT Chintan Figueroa MD LAB BLOOD ORDERABLES Final Re sult Performing Organization Address [facility] Co de Phone Number [facility] ([place]) [address] [facility] [place] [address] * (ABNORMAL) CBC with auto differential (04/27/2022 9:40 AM CDT) Pathologist [facility] WBC 5.7 3.8 - 9.9 K/cumm [facility] ([place]) Hgb 15.3 13.0 - 17.5 g/dL [facility] ([place]) Hct 47.7 38.9 - 50.3 % [facility] ([place]) Plt 170 150 - 400 K/cumm [facility] ([facility]) MPV 11.2 9.1 - 12.3 fL [facility] ([place]) RBC 5.74 4.30 - 5.80 M/cumm [facility] ([place]) MCV 83.1 81.3 - 96.4 fL [facility] ([place]) MCH 26.7(L) 27.1 - 33.3 pg [facility] ([place]) MCHC 32.1(L) 32.3 - 35.7 g/dL [facility] ([facility]) RDW CV 14.5 11.1 - 14.9 % [facility] ([place]) RDW SD 43.9 35.7 - 48.1 fL [facility] ([facility]) NRBC abs Not Measured 0.00 - 0.01 K/cumm [facility] ([place]) Blood 04/27/2022 9:40 AM CDT 04/27/2022 9:40 AM CDT Chintan Figueroa MD LAB BLOOD ORDERABLES Final Re sult [facility] ([place]) [address] [facility] [place] [address] documented in this encounter Visit Diagnoses Diagnosis Polycythemia Polycythemia, secondary documented in this encounter Orders Appointment Requests Count Last Ordered Date Fi rst Ordered Date ONCBCN LAB APPOINTMENT 1 04/27/2022 documented in this encounter Care Teams Cut Off Machine Unloader Relationship Specialty Start Date End Date Christine Herzog MD [address] [facility] [address] [place] [address] PCP - General Internal Medicine 12/02/21 Trey Pinedo MD [address] [place] [address] [address] [place] [address] Consulting Physician Neurology 05/09/19 Albert Craft MD [address] [facility] [place] [address] Consulting Physician Gastroenterology 03/11/22 Chintan Figueroa MD [address] [facility] [place] [address] Consulting Physician Hematology and Oncology 03/11/22 Jameel Bloom DPM [address] [place] [address] Consulting Physician Orthotics 03/11/22 Gadiel Genao MD [address] [place] [address] Surgeon Vascular Surgery 03/11/22 documented as of this encounter
--- OUTSIDE RECORDS SUMMARY | 2024-06-18 18:07 | XMS_ITS | Encounter Summary ---
Author Organization [facility] Healthcare Address [address] [place] [address] Care Team Providers Care Mental Health Nurse Practitioner Name Role Phone Trey Pinedo MD Unavailable [phone] Christine Herzog MD Primary Care Provide r Reason for Visit * Reason Comments Phlebotomy Encounter Details Date Type Department Care Team (Late st Contact Info) Description 01/11/2022 2:00 PM CDT Infusion [facility] 4 [facility] [address] [place] [id number] Polycythemia (Primary Dx) Social History Tobacco Use [...] than three times a week 12/31/2020 Attends Mandaeism Services Not on file 12/31 Active Member [...] on file 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 HERE FOR PHLEBOTOMY ORDERED BY Dr. ROMERO. ASSESSMENT COMPLETED. CBC REVIEWED. HCT 49.1. PHLEBOTOMY MACHINE CALIBRATED. PHLEBOTOMY BEGUN VIA RIGHT ANTECUBITAL AT 1355 AND ENDED AT 1415. 500 ML BLOOD COLLECTED, LABELED AND SENT TO LAB FOR DISPOSAL. PRESSURE DRESSING APPLIED TO PHLEBOTOMYSITE. Pt. GIVEN SNACK AND MONITORED AFTER PHLEBOTOMY. Pt. TOLERATED PROCEDURE WELL. DISCHARGE VS DONE AND CHARTED. REMINDED OF NEXT APPOINTMENT. documented in this encounter Plan of Treatment Not on file documented as of this encounter Visit Diagnoses Diagnosis Polycythemia- Primary Polycythemia, secondary documented in this encounter Orders Nursing Count Last Ordered Date First Orde red Date ONCBCN THERAPEUTIC PHLEBOTOMY 1 01/11/2022 Appointment Requests Count Last Ordered Date Fi rst Ordered Date ONCBCN INFUSION APPT REQUEST 1 01/11/2022 documented in this encounter Care Teams Mental Health Nurse Practitioner Relationship Specialty Start Date End Date Christine Herzog MD [address] [facility] [address] [place] [address] PCP - General Internal Medicine 12/02/21 Trey Pinedo MD [address] [facility] [address] [place] [address] Consulting Physician Neurology 05/09/19 documented as of this encounter
--- OUTSIDE RECORDS SUMMARY | 2024-06-18 18:07 | XMS_ITS | Encounter Summary ---
Author Organization [facility] Address [address] [place] [address] Care Team Providers Care Artificial Insemination Technician Name Role Phone Trey Pinedo MD Unavailable [phone] Christine Herzog MD Primary Care Provide r Albert Craft MD Unavailable [phone] Chintan Figueroa MD Unavailable [phone] Jameel Bloom DPM Unavailable [phone] Gadiel Genao MD Unavailable [phone] Reason for Visit * Reason Comments Memory Loss Encounter Details Date Type Department Care Team (Late st Contact Info) Description 04/19/2022 4:00 PM CDT Office Visit [facility] Primary Care at [address] [place] [address] Christine Herzog MD [address] [place] [address] [address] [place] [address] Cognitive decline (Primary Dx) Social History Tobacco Use Types [...] than three times a week 12/31/2020 Attends Confucianism Services Not on file 12/31 Active Member [...] on file 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 Gender Identity Not on file Sexual Orientation Straight 01/23/2021 10 :16 PM CDT documented as of this encounter Last Filed Vital Signs Vital Sign Reading Time Taken Comments Blood Pressure 140/80 04/19/2022 3:30 PM CDT Pulse 72 04/19/2022 3:30 PM CDT Temperature - - Respiratory Rate 22 04/19/2022 3:30 PM CDT Oxygen Saturation 97% 04/19/2022 3:30 PM CDT Inhaled Oxygen Concentration - - Weight - - Height 176.5 cm (5' 9.5 ) 04/19/2022 3:30 PM CDT Body Mass Index - - documented in this encounter Progress Notes * Christine Herzog MD - 04/19/2022 4:00 PM CDT Images from the original note were not included. Subjective/Objective Patient ID: Villa Zuniga is a 76 y.o. male. Chief Complaint Memory Loss HPI 76-year-old male coming in for memory concerns. Performed MMSE in office. Discussed trying to get the patient to move in with his son because he is forgetting to take his medications. He refuses at this time. Review of Systems Constitutional: Positive for fatigue. Negative for diaphoresis and fever. Respiratory: Negative for shortness of breath. Cardiovascular: Negative for chest pain and palpitations. Gastrointestinal: Negative for abdominal pain, nausea and vomiting. Musculoskeletal: Positive for back pain. Negative for neck pain. Neurological: Positive for dizziness. Negative for syncope, weakness, light- headedness and headaches. Psychiatric/Behavioral: Positive for confusion. Vitals: 04/19/22 1530 BP: 140/80 BP Location: Left arm Patient Position: Sitting Pulse: 72 Resp: 22 SpO2: 97% Height: 176.5 cm (5' 9.5 ) No visits with results within 1 Month(s) from this visit. Latest known visit with results is: Lab on 02/23/2022 Component Date Value WBC 02/23/2022 5.4 Hgb 02/23/2022 13.9 Hct 02/23/2022 43.5 Plt 02/23/2022 177 MPV 02/23/2022 11.2 RBC 02/23/2022 5.29 MCV 02/23/2022 82.2 MCH 02/23/2022 26.3 (A) MCHC 02/23/2022 32.0 (A) RDW CV 02/23/2022 14.5 RDW SD 02/23/2022 43.4 NRBC abs 02/23/2022 Not Measured Neutrophil abs 02/23/2022 3.6 Imm gran abs 02/23/2022 0.0 Lymphocyte abs 02/23/2022 1.1 Monocyte abs 02/23/2022 0.4 Eosinophil abs 02/23/2022 0.3 Basophil abs 02/23/2022 0.1 Neutrophil pct 02/23/2022 66.1 Imm gran pct 02/23/2022 0.2 Lymphocyte pct 02/23/2022 19.6 Monocyte pct 02/23/2022 7.7 Eosinophil pct 02/23/2022 4.6 Basophil pct 02/23/2022 1.8 Physical Exam Constitutional: General: He is not in acute distress. Appearance: He is well-developed. Neck: Thyroid: No thyromegaly. Cardiovascular: Heart sounds: Murmur: no edema. Pulmonary: Effort: Pulmonary effort is normal. Musculoskeletal: Cervical back: Normal range of motion. Lymphadenopathy: Cervical: No cervical adenopathy (no bruits). Neurological: Comments: MMSE score 17 Assessment/Plan Diagnoses and all orders for this visit: Cognitive decline (Primary) Assessment & Plan: Progressing MMSE 17 Referral to [facility] Referral for home health to help with medication management Pt refuses to move in with son at this time Son working on getting him to move in F/u in 6 months Side effects, risks, interactions reviewed with patient. [...] Plan Note - Christine Herzog MD - 04/19/2022 4:32 PM CDT Associated Problem(s): Cognitive decline Progressing MMSE 17 Referral to [facility] Referral for home health to help with medication management Pt refuses to move in with son at this time Son working on getting him to move in F/u in 6 months documented in this encounter Plan of Treatment Not on file documented as of this encounter Visit Diagnoses Diagnosis Cognitive decline- Primary documented in this encounter Discontinued Medications Medication Sig Discontinue Reason Start Date End Da te lidocaine (LIDODERM) 5 % Place 1 patch on the skin daily Remove & discard patch within 12 hours or as directed by MD. Therapy completed 12/11/2021 04/19/2022 documented as of this encounter Care Teams Artificial Insemination Technician Relationship Specialty Start Date End Date Christine Herzog MD [address] [facility] [address] [place] [address] PCP - General Internal Medicine 12/02/21 Trey Pinedo MD [address] [facility] [address] [place] [address] Consulting Physician Neurology 05/09/19 Albert Craft MD [address] [facility] [address] [place] [address] Consulting Physician Gastroenterology 03/11/22 Chintan Figueroa MD [address] [facility] [address] [place] [address] Consulting Physician Hematology and Oncology 03/11/22 Jameel Bloom DPM [address] [place] [address] Consulting Physician Orthotics 03/11/22 Gadiel Genao MD [address] [place] [address] Surgeon Vascular Surgery 03/11/22 documented as of this encounter
--- OUTSIDE RECORDS SUMMARY | 2024-06-18 18:07 | XMS_ITS | Encounter Summary ---
Author Organization [facility] Healthcare Address [address] [place] [address] Care Team Providers Care Maintenance Department Technician Name Role Phone Trey Pinedo MD Unavailable [phone] Christine Herzog MD Primary Care Provide r Albert Craft MD Unavailable [phone] Chintan Figueroa MD Unavailable [phone] Jameel Bloom DPM Unavailable [phone] Gadiel Genao MD Unavailable [phone] Reason for Visit * Reason Comments Low Heart Rate * Auth/Cert Specialty Diagnoses / Procedures Referred By Contac t Referred To Contact Diagnoses Bradycardia COVID-19 Procedures ADM Referral ID Status Reason Start Date Expiration Date Visits Re quested Visits Authorized [id number] 1 1 Encounter Details Date Type Department Care Team (Latest Contact Info) Description 08/06/2022 12:16 AM [facility] - 08/11/2022 12:50 PM [facility] Hospital Encounter [facility] 2 ICU [address] [place] [address] Mario Small, DO [address] [place] [address] Wilfredo Jean-Baptiste MD [address] [place] [address] Stalin Means MD [facility] [place] [address] Hi Bravo MD [address] [facility] [place] [address] Bradycardia (Primary Dx); COVID-19; Closed fracture of one rib of right side, initial encounter; Essential hypertension; Coronary artery disease involving burns paiute coronary artery of burns paiute heart without angina pectoris; Generalized weakness; Mixed hyperlipidemia Discharge Disposition: Discharge to home, home health skilled care Social History Tobacco Use Types Packs/Day [...] 08/12/2022 How often do you attend chur or christianity services? Never 08/12/2022 Do you belong to any clubs o r organizations such as congregational groups, unions, fraternal or athletic groups, or [...] on file 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 [facility] Gender Identity Not on file Sexual Orientation Straight 01/23/2021 10 :16 PM CDT documented as of this encounter Last Filed Vital Signs Vital Sign Reading Time Taken Comments Blood Pressure 171/90 08/11/2022 8:00 AM [facility] Pulse 51 08/11/2022 8:00 AM [facility] Temperature 36.4 ??C (97.6 ??F) 08/11/2022 8:00 AM CS T Respiratory Rate 13 08/11/2022 8:00 AM [facility] Oxygen Saturation 94% 08/11/2022 8:00 AM [facility] Inhaled Oxygen Concentration - - Weight 67.4 kg (148 lb 9.4 oz) 08/06/2022 5:37 A M [facility] Height 170.2 cm (5' 7.01 ) 08/06/2022 5:37 AM CS T Body Mass Index 23.27 08/06/2022 5:37 AM [facility] documented in this encounter Discharge Summaries * Hi Bravo MD - 08/11/2022 10:33 AM CST Inpatient Discharge Summary Patient Name - Verna Zuniga Patient Age - 76 yrs Patient - [id number] [facility] - [id number] Document Creation Date: 08/11/2022 Admitting Provider, : Wilfredo Jean-Baptiste MD Discharge Provider, MD: Blanca att. providers found Primary Care Physician at Discharge: Christine Herzog MD [phone] Admission Date: 08/06/2022 Discharge Date/time: 08/11/2022 Admission Location: [facility] LOS - LOS: 5 days DETAILS OF HOSPITAL STAY Hospital Problems/Diagnoses Principal Problem: Bradycardia Reason for Hospitalization: 76 y/o with PAD, s/p bilateral knee replacement, htn was found to have COVID a few days ago, however he was asymptomatic. Today he was brought to the ED because his HR wasfound to be in the 40s. In the ED his HR was in the 30s and he was given atropine with a response of the HR increasing to the 60s. He was given an additional dose o f0.4 of atropine in the emergency department when his HR was in the 40s. He reports being asymptomatic Hospital Course: 76 y.o. y/o male with PMH of CAD, HTN, COPD, s/p BL knee replacement found to have COVID-19 taking paxlovid who wad admitted in the ICU secondary to bradycardia needing multiple doses of atropine. Upon arrival to the ICU patient was asymptomatic. Cardiology was consulted recommended to hold his metoprolol, ECHO was done reported EF 60% with RSVP 42 Patient was diagnosed with COVID infection, but was asymptomatic and not hypoxemic. He did not meetcriteria for treatment with remdesivir or dexamethasone. Patient was found to have paroxysmal atrial fibrillation. He was started on a lower dose of metoprolol 25 mg daily and tolerated well without bradycardia. Patient was started on Eliquis. Cardiology recommended to hold Plavix. Patient developed new onset cough and shortness of breath and chest x-ray showed right lower lobe pneumonia compatible with hospital-acquired pneumonia. He was started on IV cefepime and vancomycin. MRSA screen was negative. IV vancomycin was discontinued. Patient received IV cefepime for 3 days. Repeat chest x-ray showed resolution of pneumonia. Patient developed acute kidney injury on CKD stage 2 and received gentle hydration. Creatinine improved to his baseline. Patient was cleared to be discharged by Cardiology. He will be discharged to follow-up with cardiology and primary doctor as outpatient. Discharge Details Physical Exam at Discharge: Discharge Condition: stable Pulse: 51 Resp: 13 BP: (!) 171/90 Temp: 36.4 ??C (97.6 ??F) Weight: 67.4 kg (148 lb 9.4 oz) Pertinent Exam Findings at Discharge: Physical Exam Constitutional: Patient is awake alert, no acute distress. Skin: Warm, dry, no rashes in visible areas. Eyes: Equal, round and reactive, conjunctiva clear. ENT: Good dentition, oropharynx clear. Neck: Trachea midline, no masses or thyromegaly. Respiratory: Unlabored respirations, lungs clear to auscultation, no wheezes, no rhonchi, no crackles. Cardiovascular: Normal S1, S2, no murmurs. Abdomen: Soft, non tender, no obvious masses noted, bowel sounds + Neuro: No gross focal deficits. Psych: Alert and oriented x3, normal affect. Extremities: No edema. Musculoskeletal: No obvious joint deformities noted. Gait: Not assessed. Discharge Disposition: Discharge to home, home health skilled care Code Status at Discharge: Full Code Active Issues & Recommended Plan for Follow-up: Patient was on metoprolol succinate 50 mg daily, the dose was reduced to 25 mg daily to prevent bradycardia. He was started on Eliquis for paroxysmal AFib and his Plavix was discontinued. Allergies: Ciprofloxacin Discharge Medications: Your medication list START taking these medications Instructions Last Dose Given Next Dose Due amLODIPine 2.5 mg tablet Commonly known as: NORVASC Start taking on: August 12, 2022 Take 1 tablet (2.5 mg total) by mouth daily apixaban 5 mg tablet Commonly known as: ELIQUIS Take 1 tablet (5 mg total) by mouth 2 (two) times a day cefdinir 300 mg capsule Commonly known as: OMNICEF Take 1 capsule (300 mg total) by mouth 2 (two) times a day for 3 days HYDROcodone-acetaminophen 5-325 mg per tablet Commonly known as: NORCO Take 1 tablet by mouth every 4 (four) hours as needed for pain lidocaine 5 % Commonly known as: LIDODERM Start taking on: August 12, 2022 Place 1 patch on the skin daily Remove & discard patch within 12 hours or as directed by . lisinopriL 20 mg tablet Commonly known as: PRINIVIL,ZESTRIL Take 1 tablet (20 mg total) by mouth daily magnesium oxide 400 mg (241.3 mg elemental magnesium) tablet Commonly known as: MAG-OX Take 1 tablet (400 mg total) by mouth 2 (two) times a day CHANGE how you take these medications Instructions Last Dose Given Next Dose Due metoprolol XL 25 mg extended release tablet Commonly known as: TOPROL-XL Start taking on: August 12, 2022 What changed: medication strength how much to take Take 1 tablet (25 mg total) by mouth daily CONTINUE taking these medications Instructions Last Dose Given Next Dose Due aspirin 81 mg enteric coated tablet Doctor's comments: Take one by mouth one time per day atorvastatin 40 mg tablet Commonly known as: LIPITOR Take 1 tablet (40 mg total) by mouth daily esomeprazole DR 40 mg capsule Commonly known as: NexIUM Take 40 mg by mouth daily as needed finasteride 5 mg tablet Doctor's comments: Requesting 1 year supply Commonly known as: PROSCAR Take 1 tablet (5 mg total) by mouth daily STOP taking these medications clopidogreL 75 mg tablet Commonly known as: PLAVIX nirmatrelvir 300 mg-ritonavir 100 mg tablets,dose pack tablets in a dose pack (EUA) Commonly known as: PAXLOVID 300mg-100 mg Where to Get Your Medications These medications were sent to [id number] - [place], [place] - [facility] [address] AT [place] [address], [facility] [phone] amLODIPine 2.5 mg tablet apixaban 5 mg tablet cefdinir 300 mg capsule HYDROcodone-acetaminophen 5-325 mg per tablet lidocaine 5 % lisinopriL 20 mg tablet magnesium oxide 400 mg (241.3 mg elemental magnesium) tablet metoprolol XL 25 mg extended release tablet Time Spent in Discharge Process: I have spent 38 minutes on discharge planning activities. Time spent was on Coordination of care Test Results Pending at Discharge (If Blank, None Found): Pending Labs Order Current Status Blood culture Blood Preliminary result Blood culture Blood Preliminary result Operative Procedures Performed (If Blank, None Found): Outpatient Follow-Up: Future Appointments Date Time Provider Department Center 09/08/2022 12:30 PM [facility] 09/08/2022 1:00 PM [facility] 2 [facility] 09/19/2022 10:00 AM Bucky Hayes MD [facility] 6C NL 2022 3:45 PM Christine Herzog MD [facility] PC 10/25/2022 1:00 PM [facility] 10/25/2022 1:30 PM Monika Castellano, [facility] ONC [facility] Oncology 10/25/2022 2:00 PM [facility] 1 [facility] 03/16/2023 4:00 PM Christine Herzog MD [facility] PC Contact Information for Follow-ups Ross Galindo MD Specialty: Interventional Cardiology, Cardiovascular Disease, Nuclear Medicine, Internal Medicine [address] [place] [id number] Next Steps: Follow up in 2 week(s) [facility] Medical Group Cardiology Specialty: Cardiology [address] [place] [phone] Next Steps: Follow up Christine Herzog MD Specialty: Family Medicine Relationship: PCP - General [address] [place] [id number] Next Steps: Follow up in 1 week(s) [facility] Home Care Services Specialty: Home Health and Hospice [address] [facility] [address] Next Steps: Follow up Questions: Service Line: Home Health Primary disciplines requested: Intermediate Physical Therapy Secondary disciplines requested: Occupational Therapy Home Health Services: Disease and Medication Management Therapy to Eval/Tx Therapy instructions: Evaluation/treatment Requested Start of Care Date: 24-48 hours Physician to follow patient's care (the person listed here will be responsible for signing ongoing orders): PCP I attest that I or another qualified licensed provider saw the patient 90 days prior to or 30 days post admission and this face to face encounter meets the necessary Home Health requirements. The face to face encounter occurred on (date): 08/11/2022 The encounter with the patient was in whole, or in part, for the following medical condition, whichis the primary reason for home health care. (List medical condition): Bradycardia, hospital-acquired pneumonia I certify that, based on my findings, the following services are medically necessary skilled home health services: Therapy to Eval/Tx Clinical findings that support the need for home care: Medical condition requiring skilled assessment/education Frequent falls requiring safety eval/therapy Lack of knowledge regarding medications, requires education and assessment I certify that my clinical findings support patient's homebound status. Homebound criteria met because: Poor endurance Shortness of breath with minimal exertion Requires assistance of another to leave home safely Abnormal gait/unsteady balance resulting in fall risk Disorders of thought processes impacting decision making and safety Requires maximum assistance to stand/ambulate Referral Status: Pending Authorization Please schedule an appointment with the following provider(s): [place] [address] [place] [address] [place] [id number] Follow up in 2 week(s) [facility] Medical Group Cardiology [address] [facility] [address] [place] [phone] Christine Herzog MD [address] [place] [address] Follow up in 1 week(s) [facility] Home Care Services [address] [facility] [address] ANCILLARY INFORMATION Other Procedures & Diagnostic Tests: XR Chest 1 View Result Date: 08/06/2022 EXAM DESCRIPTION: XR CHEST 1 VIEW REASON FOR STUDY: general weakness Pt arrives to ER with son for low HR at home. Son states that HR ranged from 32-44 with a BP reading of 185/75. Pt was recently diagnosed with Covid and has been taking Paxlovid. Pt denies dizziness and light headiness at home andat this time TECHNIQUE: Portable upright AP view of the chest. COMPARISON: 12/08/2021 FINDINGS: LUNGS AND PLEURA: No focal opacity, large effusion, or pneumothorax identified. HEART/MEDIASTINUM: Trachea midline. Cardiac silhouette normal in size. Mediastinal contours appear normal. BONES: Unremarkable. CHEST WALL: Unremarkable. UPPER ABDOMEN: Unremarkable. IMPRESSION: No acute abnormality identified. THIS IS AN ELECTRONICALLY VERIFIED FINAL REPORT 08/06/2022 12:53 AM - Electronically signed by Shamar MARIN T: Report ID: [id number] Reading Location: [id number] Transthoracic Echo (TTE) Limited/Followup Result Date: 08/06/2022 Adult Echocardiogram + + :Name: VERNA ZUNIGA Study Date: 08/06/2022 Status: [facility] : : Patient Location: [address]^[id number]^Height: 67 in : : Weight: 148 lbBP: 157/102 mmHg: :: 1945 Gender: Male BSA: 1.8 m2 : :Reason For Study: heartfailure with reduced ejection fraction : :Ordering Physician: : :ROSS GALINDO : : : :Performed By: Amber : :ALEXEY Oliveira : + + Procedure A two-dimensional transthoracic echocardiogram with color flow and Doppler was performed in limited views only. Images from the parasternal window were difficult to obtain and are suboptimal in quality. COVID PROTOCOL. A two- dimensional transthoracic echocardiogram with color flow and Doppler was performed. Left Ventricle The left ventricle is normalin size. There is normal left ventricular wall thickness. Left ventricular systolic function is normal. Ejection Fraction = 60-65%. The left ventricular wall motion is normal. Right Ventricle The right ventricle is normal size. The right ventricular systolic function is normal. Atria Mild to moderate left atrial enlargement. The right atrium is mildly dilated. Mitral Valve The mitral valve is normal. There is trace mitral regurgitation. Tricuspid Valve The tricuspid valve is normal. There is trace to mild tricuspid regurgitation. Right ventricular systolic pressure is '42' mm/HG. 'Mild' pulmonary hypertension. Aortic Valve Aortic valve sclerosis' mild'. The aortic valve opens well. No aortic stenosis . No aortic regurgitation is present. Pulmonic Valve The pulmonic valve is not well visualized. Great Vessels The aortic root is normal size. IVC not well seen. IVC appears 'dilated' in size. Pericardium There is no pericardial effusion. Diastology E wave seen,no significant A wave noted c onsistent with atrial fibrillation. Tissue doppler not performed. Interpretation Summary Mild to moderate left atrial enlargement The right atrium is mildly dilated. Left ventricular systolic function is normal. Ejection Fraction = 60- 65%. The right ventricle is normal size. The right ventricular systolic function is normal. There is trace to mild tricuspid regurgitation. 'Mild' pulmonary hypertension. Right ventricular systolic pressure is '42' mm/HG. IVC appears 'dilated' in size E wave seen,no significant A wave noted consistent with atrial fibrillation. + + :Measurements with Normals : : (0.6- 1.2 LVIDd: (3.5-5.7Ao root diam: (2.0-3.7 : :IVSd: 1.0 cmcm) 5.0 cm cm) 3.5 cm cm) : :LVPWd: (0.6-1.1 LVIDs: (3.1-4.6 LA dimension: (1.9-4.0 : :1.0 cm cm) 3.2 cm cm) 4.9 cm cm) : + + MMode/2D Measurements & Calculations IVSs: 1.5 cm LVPWs: 1.4 cmFS: 35.5 % % IVS thick: 39.4 % EDV(Teich): 118.8 ml ESV(Teich): 41.9 ml Ao root area: 9.5 cm2 Doppler Measurements & Calculations TR max tommy: 268.0 cm/sec RAP systole: 8.0 mmHg TR max P.7 mmHg RVSP(TR): 36.7 mmHg Electronically signed by: Ross Galindo MD 08/06/2022 03:43 PM Recent Labs: Recent Labs Lab Units 08/11/22 0438 08/10/22 0240 08/09/22 0622 WBC K/cumm 6.1 6.2 5.5 HEMOGLOBIN g/dL 13.8 13.1 12.7* HEMATOCRIT % 44.5 40.5 39.9 PLATELETS K/cumm 171 184 167 Recent Labs Lab Units 08/11/22 0438 08/10/22 0240 08/09/22 0622 08/08/22 0535 08/07/22 0548 08/06/22 0032 WBC K/cumm 6.1 6.2 5.5 < > 4.5 4.9 HEMOGLOBIN g/dL 13.8 13.1 12.7* < > 13.0 14.3 HEMATOCRIT % 44.5 40.5 39.9 < > 40.4 44.5 PLATELETS K/cumm 171 184 167 < > 142* 161 NEUTROS PCT % -- -- -- -- 55.4 43.3 LYMPHS PCT % -- -- -- -- 28.5 32.5 MONOS PCT % -- -- -- -- 9.4 15.9 EOS PCT % -- -- -- -- 5.6 6.5 < > = values in this interval not displayed. Recent Labs Lab Units 08/11/2243708/10/2223908/09/2262108/06/22 0742 08/06/22 0032 SODIUM mmol/L 142 140 140 < > 142 POTASSIUM PLASMA mmol/L 3.9 4.3 4.1 < > 3.7 CHLORIDE mmol/L 108 108 108 < > 107 CO2 mmol/L 26 21* 22 < > 28 BUN SERUM mg/dL 22 29* 19 < > 30* CREATININE mg/dL 1.10 1.60* 1.20 < > 1.20 [id number] mL/min/1.73 m2 70 45 63 < > 63 GLUCOSE mg/dL 93 94 99 < > 71 POC GLUCOSE MONITOR -- -- -- < > -- CALCIUM mg/dL 8.3* 8.5 8.6 < > 8.9 ALBUMIN g/dL -- -- -- -- 4.0 PHOSPHORUS PLASMA mg/dL 3.2 3.4 2.6 < > -- < > = values in this interval not displayed. Recent Labs Lab Units 08/11/2243708/10/2223908/09/2262108/06/2242 08/06/22 0032 SODIUM mmol/L 142 140 140 < > 142 POTASSIUM PLASMA mmol/L 3.9 4.3 4.1 < > 3.7 CHLORIDE mmol/L 108 108 108 < > 107 CO2 mmol/L 26 21* 22 < > 28 ANIONGAP mmol/L 8 11 10 < > 7 GLUCOSE mg/dL 93 94 99 < > 71 POC GLUCOSE MONITOR -- -- -- < > -- BUN SERUM mg/dL 22 29* 19 < > 30* CREATININE mg/dL 1.10 1.60* 1.20 < > 1.20 CALCIUM mg/dL 8.3* 8.5 8.6 < > 8.9 ALBUMIN g/dL -- -- -- -- 4.0 ALK PHOS Units/L -- -- -- -- 109 ALT Units/L -- -- -- -- 14 AST Units/L -- -- -- -- 16 BILIRUBIN TOTAL mg/dL -- -- -- -- 0.4 < > = values in this interval not displayed. Recent Labs Lab Units 08/06/22 0032 ALK PHOS Units/L 109 BILIRUBIN TOTAL mg/dL 0.4 TOTAL PROTEIN g/dL 6.4* ALT Units/L 14 AST Units/L 16 Recent Labs Lab Units 08/11/22 0438 08/10/22 0240 08/09/22 0622 MAGNESIUM mg/dL 2.3 2.4 2.2 Recent Labs Lab Units 08/06/22 1222 PROTIME (PT) sec 14.9* INR 1.2 Lab Results Component Value Date GLUCOSE 93 08/11/2022 GLUCOSE 94 08/10/2022 GLUCOSE 99 08/09/2022 Implant: Implants Type Not Specified Xience-09/04/2012 - Implanted Coronary As of 05/08/2019 Status: Implanted General Precautions (If Blank, None Found): Isolation Status: Droplet, Airborne, Contact Nutritional Status and in-house recommendations: Dietary Orders (From admission, onward) Start Ordered 08/06/22 1151 Adult Diet Restricted; Cardiac (Low Na, Low Chol); Diabetic; Unknown if patient is receiving insulin Diet effective now Question Answer Comment ([facility] [place] Diet type Restricted Fat / Sodium Restriction: Cardiac (Low Na, Low Chol) Diabetic: Diabetic Patient receiving insulin: Unknown if patient is receiving insulin 08/06/22 1151 Anticoagulation Indication: INR: 08/06/2022: 1.2 Warfarin Administrations (last 168 hours) None Oxygen Status: No data found. Wound Care Instructions Other Instructions Call provider for: Temperature -Temperature greater than 101 degrees F Call provider for: difficulty breathing or chest pain Call provider for: persistent dizziness or light-headedness Call provider for: severe uncontrolled pain Call provider for: headache, visual disturbances, weakness and speech changes Special Instructions Please throw away metoprolol 50 mg tablets (if you have any left at home) and start taking 25 mg once daily Ambulatory referral to Home Health Service Line: Home Health Primary disciplines requested: Intermediate Physical Therapy Secondary disciplines requested: Occupational Therapy Home Health Services: Disease and Medication Management Therapy to Eval/Tx Therapy instructions: Evaluation/treatment Requested Start of Care Date: 24-48 hours Physician to follow patient's care (the person listed here will be responsible for signing ongoing orders): PCP I attest that I or another qualified licensed provider saw the patient 90 days prior to or 30 days post admission and this face to face encounter meets the necessary Home Health requirements. The face to face encounter occurred on (date): 08/11/2022 The encounter with the patient was in whole, or in part, for the following medical condition, whichis the primary reason for home health care. (List medical condition): Bradycardia, hospital-acquired pneumonia I certify that, based on my findings, the following services are medically necessary skilled home health services: Therapy to Eval/Tx Clinical findings that support the need for home care: Medical condition requiring skilled assessment/education Frequent falls requiring safety eval/therapy Lack of knowledge regarding medications, requires education and assessment I certify that my clinical findings support patient's homebound status. Homebound criteria met because: Poor endurance Shortness of breath with minimal exertion Requires assistance of another to leave home safely Abnormal gait/unsteady balance resulting in fall risk Disorders of thought processes impacting decision making and safety Requires maximum assistance to stand/ambulate Active LDAs (If Blank, None Found): Peripheral IV 08/06/22 20 G Right Antecubital (Active) Placement Date/Time: 08/06/2225 Size (Gauge): 20 G Location Orientation: Right Location: Antecubital Insertion attempts: 1 Patient Emergency Contact: Primary Emergency Contact: Ian Zuniga Immunization Status at Discharge Immunization History Administered Date(s) Administered Pfizer SARS-CoV-2 Vaccination (12+ yrs) PURPLE 09/01/2020, 09/22/2020, 06/29/2021, 09/06/2021 Tdap 12/19/2007 Hi Barrett MD [facility] documented in this encounter Medications at Time of Discharge aspirin 81 mg tablet Take one by mouth one time per day 0 0 06/27/2008 cefdinir (OMNICEF) 300 mg capsule Take 1 capsule (300 mg total) by mouth 2 (two) times a day for 3 days 6 capsule 08/11/2022 3 amLODIPine (NORVASC) 2.5 mg tablet Take 1 [...] 2 (two) times a day 60 tablet 08/11/2022 3 metoprolol XL (TOPROL-XL) 25 mg extended release tablet Take 1 tablet (25 mg total) by mouth daily 30 tablet 08/12/2022 3 documented as of this encounter Ordered Prescriptions Prescription Sig Dispense Quantity Refills Last Filled Start Date End Date cefdinir (OMNICEF) 300 mg capsule Take 1 capsule (300 mg total) by mouth 2 (two) times a day for 3 days 6 capsule 08/11/2022 3 amLODIPine (NORVASC) 2.5 mg tablet Take 1 tablet (2.5 mg total) by mouth daily 30 tablet 1 08/12/2022 3 metoprolol XL (TOPROL-XL) 25 mg extended release tablet Take 1 tablet (25 mg total) by mouth daily 30 tablet 08/12/2022 3 magnesium oxide (MAG-OX) 400 mg (241.3 mg elemental magnesium) tabletIndications: hypomagnesemia Take 1 tablet (400 mg total) by mouth 2 (two) times a day 60 tablet 08/11/2022 3 lisinopriL (PRINIVIL,ZESTRIL) 20 mg tablet Take 1 tablet (20 mg total) by mouth daily 30 tablet 1 08/11/2022 3 lidocaine (LIDODERM) 5 % Place 1 patch on the skin daily Remove & discard patch within 12 hours or as directed by MD. 10 patch 08/12/2022 3 HYDROcodone-acetam inophen (NORCO) 5-325 mg per tabletIndications: Pain Take 1 tablet by mouth every 4 (four) hours as needed for pain 10 tablet 08/11/2022 3 apixaban (ELIQUIS) 5 mg tabletIndications: atrial fibrillation Take 1 tablet (5 mg total) by mouth 2 (two) times a day 60 tablet 1 08/11/2022 3 documented in this encounter Discharge Disposition Disposition Code Departure Means Destination Discharge to home, home health skilled care documented in this encounter Progress Notes * Jasmin Rodarte RN - 08/11/2022 12:50 PM CST DISCHARGE PLAN CM met with patient/family to discuss d/c planning. Pt plans to return home with support from [facility] and [facility]. List of in network home healthcare companies provided and patients preferences addressed. [facility] [address] [place] [id number] Above [facility] has accepted patient. With plan for start of care on . Pt/family aware. [facility] info added to AVS. Bedside RN to fax order and AVS to above fax number at d/c. Transportation has been arranged with son. Supervisor [employer] to remain available to assist as needed. Jasmin Rodarte RN 08/11/2022 1:50 PM ER WELT END * Isaura King, FACILITY TECHNICIAN - 08/11/2022 11:14 AM CST Physical Therapy 08/11/22 1114 PT Last Visit Session Type Treatment PT Received On 08/11/22 Safe Environment Arm Band Checked;Call Light within Reach;Patient found sitting in Chair;Overbed Table within Reach Subjective Agreeable to Therapy Family/Caregiver Present No Precautions Precautions Bed/Chair Alarm;Fall risk Precaution Comments chair alarm, telemetry, gait belt, sats 90 % after walk, RR 23 Activity Tolerance Endurance Tolerates 10 - 20 min activity with multiple rests Pain Assessment Pain Assessment 0-10 Pain Score 0 - No pain Cognition Orientation Oriented to person Seated Seated-Exercises Lower extremity Reps/Sets 04/02 Seated-Motion AROM Seated-Exercise Comments while in cardiac chair Transfer 1 Transfer From 1 Sit Transfer Type 1 To and from Transfer to 1 Stand;Cardiac chair Technique 1 Sit to stand;Stand to sit Transfer Device 1 Wheeled walker Transfer Level of Assistance 1 Minimum Assist (of 1) Ambulation 1 Distance (ft) 1 10 Surface 1 Level tile Device 1 Wheeled walker Assistance 1 Minimum Assist;Contact Guard Assist (of 1) Gait: Requires verbal cues to 1 Prevent bumping into environmental barriers (garcia/furniture) Ambulation Comments 1 pt ambulated with wh walker 10 ft back to cardiac chair Recommendation/Plan PT Recommendation/Plan (S) Intermediate Facility Patient at high risk for Falls;Injury due to decreased ability to care for self;Injury due to reduced functional status;Injury due to impaired cognition;Injury at home as patient has not returned to prior level of function Recommend SNF due to Risk of injury at home;Unable to safely care for self in the home;Skilled therapy needed to address care for self in the home;Skilled therapy needed to address functional deficits;Skilled therapy needed for patient to return to prior level of independence Progress during current admission Progressing toward goals Multi-Disciplinary Problems (from Physical Therapy) Active Problems Problem: Mobility Start Date: 08/09/22 Goal Start Date Expected End Date End Date STG - Patient will ambulate 08/09/22 08/23/22 -- Goal Details: The Pt will transfer and ambulate 100 ft with wheeled walker, with CGA +1, and cues, with no significant loss of balance, and with no more than 2 standing rest breaks. - unmet Problem: Transfers Start Date: 08/09/22 Goal Start Date Expected End Date End Date STG - Transfer from bed to chair 08/09/22 08/23/22 -- Goal Details: With SBA +1, and cues. - not performed Problem: Balance Start Date: 08/09/22 Goal Start Date Expected End Date End Date STG - Maintains dynamic standing balance with upper extremity support 08/09/22 08/23/22 -- Goal Details: For 5 minutes, with wheeled walker, during daily activities, with CGA +1, and cues. - unmet Problem: PT Misc Start Date: 08/09/22 Goal Start Date Expected End Date End Date PT LTG - Misc 1 08/09/22 08/23/22 -- Goal Details: The Pt will perform Therapeutic AROM ex's for B LE's, in bed or in chair, 2 sets of 10 reps, daily, with cues, and with Therapeutic Rest Breaks, as needed. - progressing Reviewed By Jose De Jesus Rogel RN 08/11/22 0142 Jose De Jesus Rogel RN 08/09/22 0105 Jose De Jesus Rogel RN 08/09/22 0017 Educated the patient to the role of physical therapy, plan of care, goals of therapy, rationale forprogressing mobility. Patient was left in cardiac chair with all needs met and equipment intact. Safety measures include chair alarm activated, oriented to call light and placed within reach, and personal items within reach. Mobility and ADL status posted at bedside and within medical record. ER WELT END * Darshana Adam OT - 08/11/2022 9:38 AM CST Occupational Therapy 08/11/22 0908 General Chart Reviewed Yes Session Type Evaluation OT Received On 08/11/22 Safe Environment Call Light within Reach;Notified RN;Chair Alarm placed and activated Subjective Agreeable to Therapy Subjective Comment Pt wants to return home, difficulty understanding recommendation. Pt spouse recently returned home with COVID, some disability. Additional Pertinent History 76 yo with COVID and HCAP, bradycardia, ANN on CKD PMHX: Bilat TKR, COPD, CAD, HTN Occupational Therapy-Patient Goal home, no further development with decreased cognition Current Functional Status OT Functional Mobility CGA for functional mobility around the bed to standing at tray table for ADLtrials with F balance. Requires repetitive cueing for safe technique for standing transfers and formanagement of ww. OT Self Care Mild cognitive deficits impacting ability to problem solve during obstacles during functional mobility, and during steps of simple self cares. Pt dons sock with CGA, SpO2 dropping with increased dyspnea, decreased dynamic sitting balance during reaching LB. LB ADLs with CGA/MIN assist.Pt completed standing ADLs (oral care) for 3 min with SpO2 dropping in 80s on RA with cueing for breathing technique for recovery. Pt completed after less than 1 min brushing teeth with cueing neededfor rinsing. Pt requires cueing to initiate seated rest break and completed hair washing/combing with MIN assist secondary to difficulty following simple direction. Pt with instability, anterior and p osterior LOB during dynamic standing/ bimanual ADL. Estimate pt moderate fall risk. Precautions Precautions Bed/Chair Alarm;Fall risk Precaution Comments COVID/airborne Home Living Additional Comments Pt lives at home with spouse, 1 level home with 2 steps to enter. Pt son works during day. Tub shower without DME. Toilet with railing. Prior Function Prior Function Comments Pt inconsistent historian. Pt was independent with BADLs, family assist forIADLs/homecare, driving. Pt ambulates with rollator. Pt with recent fall in December with rib fxs. Pain Assessment Pain Assessment 0-10 Pain Score 0 - No pain Activity Tolerance Endurance Tolerates 10 - 20 min activity with multiple rests Cognition Cognition Comments Pt with delayed processing, requires increased time to respond to questions. Pt with difficulty following direction, difficulty understanding need for O2 or need for maintaining SpO2. Orientation Oriented to person;Oriented to place (wrong date of ) Awareness of Errors Decreased awareness of errors Compliance/Behavior Anxious;Easy to engage Coordination Movements Are Fluid and Coordinated (shuffling gait, UE C WFL) Transfer 1 Transfer From 1 Sit Transfer Type 1 To and from Transfer to 1 Stand Transfer Device 1 Wheeled walker Transfer Level of Assistance 1 Minimum Assist Assessment Prognosis Good Problem List Decreased safe judgment during ADL;Decreased cognition;Decreased endurance;Decreased balance;Decreased functional mobility;Decreased gross motor control;Decreased ADL independence;Decreased IADL independence Problem List Comments Pt with moderate fall risk with decreased safety awareness and decreased ability to compensate for deficits. Plan Plan Plan of care initiated, Consider this discharge summary Recommendation/Plan OT Recommendation Intermediate Facility Patient at high risk for Falls;Readmission;Injury due to decreased ability to care for self;Injury due to reduced functional status;Injury due to balance deficits;Injury at home as patient has not returned to prior level of function;Developing secondary complications: poor health management Recommend SNF due to Skilled therapy needed for patient to return to prior level of independence;Skilled therapy needed to address functional deficits;Unable to safely care for self in the home;Skilled therapy needed to address care for self in the home OT Recommendation/Plan Comments Short term SNF to progress toward his PLOF with repetitive trainingfor safety, compensatory techniques for improved retention, increased ADL ind. OT Frequency during current admission 3-5x/wk Treatment/Interventions during current admission ADL/IADL retraining;Balance Training;Compensatory technique education;Endurance training;Equipment eval/education;Functional activity;Functional mobility training;Functional transfer training;Therapeutic exercise OT Equipment Recommended Shower chair;Grab bars OT Evaluation Complete Yes Pt will benefit from skilled OT in order to increase safety and independence with ADL/IADls, decrease fall risk, return to PLOF, decrease pain, and increase quality of life. Educated the patient on the role of occupational therapy, plan of care, goals of therapy, rationalefor progressing mobility/ADLs, and use of call light/staff assist. Pt with fair understanding. RN notified of session outcome, concerns for pt with recommendation for SNF. Patient was left in chair with all needs met and equipment intact. Safety measures include chair alarm activated, orientedto call light and placed within reach, and personal items within reach. Mobility and ADL status posted at bedside. Goals: 1. Pt with independent toileting, SpO2 >90% during activity on RA. 2. Pt will identify 2 energy conservation strategies to improve safety and ADL ind. 3. Pt will complete standing bimanual grooming task with G balance, decreased fall risk. ER WELT END * Jennifer Perez - 08/11/2022 9:37 AM CST 08/11/22 0900 Time Spent Start Time 0915 Patient Spiritual Assessment Spirituality Assessed Yes Hindu Affiliation None Clinical Encounter Type Visited With Patient Interventions Interventions Active listening Pt does not practice a shady tradition and has no spiritual needs at this time. ER WELT END * Jasmin Rodarte RN - 08/10/2022 3:33 PM CST Spoke to patient this afternoon regarding PT and MD recommendation for SNF. Patient stated I just want to go home . I also discussed possible Home Health with PT and patient stated I don't think Ineed that. I just want to go home. ER WELT END * Araceli Noriega MSW - 08/10/2022 3:31 PM CST PLASTER MIXER received call from pt's son. Son reports that pt's d/c from hospital on Monday, so he is staying at their house for the time being. Son stated plan will be for pt to return home at d/c. Son open to for continued PT. Son reports that he or his will be able to transport pt home at d/c. DEANGELO Haines 08/10/2022 4:27 PM Per CM, she spoke with pt today who is wishing to go home with son at d/c. PT recommending SNF. LSWattempted to call and speak with pt's son. Voicemail left. P[employer] M[employer]ER preemptively sent out bulk of SNF referrals [facility]. PASRR completed. ID: [id number]. DEANGELO Haines 08/10/2022 3:32 PM ER WELT END ER WELT END * Arnold Le, Hi Palomares MD - 08/10/2022 1:20 PM CST Images from the original note were not included. General Medicine Daily Progress SUBJECTIVE The patient was seen and examined at bedside he is hemodynamically stable AOx2- 3, he denies acute complains. Patient got confused in the morning he was quickly reoriented Interval History: The patient is a 76 y.o. y/o male with PMH of CAD, HTN, COPD, s/p BL knee replacement found to have COVID-19 taking paxlovid who wad admitted in the ICU secondary to symptomatic bradycardia the patient received multiple dosis of atropine. Upon arrival to the ICU patient was asymptomatic. Cardiology was consulted recommended to hold his metoprolol, ECHO was done reported EF 60% with RSVP 42 , stress test is plan in the future. Regarding the Covid the patient is asymptomatic no treatment was indicated.Cardiology also recommended to hold beta-blockers and Plavix he was started apixaban. The patient has bradycardia with good chronic tropic response. Patient was move out of the ICU on 08/06/2022. PT/OT was requested to see the patient. Patient developed SOB in the afternoon I did xray showed new infiltrated right lower, started treatment for hospital acquire pneumonia, 08/09/22 Patient seen and examined at bedside. Patient reports not feeling well. He reports that he did not have a good night sleep. He is still feeling short of breath and has a cough. He has remained afebrile. 08/10/22 Patient seen and examined at bedside. Patient is still not feeling well. He does not have a good appetite. He has not eaten much from his breakfast. States that he is still having a cough. Breathing is about the same as yesterday. He has remained afebrile. OBJECTIVE Vitals: 24hr Min/Max: Temp Min: 36 ??C (96.8 ??F) Max: 36.7 ??C (98.1 ??F) Pulse Min: 53 Max: 76 BP Min: 143/75 Max: 168/91 Resp Min: 18 Max: 33 SpO2 Min: 93 % Max: 97 % Most Recent : Vitals: 08/10/22 1148 BP: 166/86 Pulse: 53 Resp: 18 Temp: 36.3 ??C (97.3 ??F) SpO2: 97% I/O last 2 completed shifts: In: 1300 [P.O.:1200; IV Piggyback:100] Out: 1100 [Urine:1100] No intake/output data recorded. Physical Exam: Eyes: EOMI, OZZY, sclare non icteric Neck: supple, no nuchal ridigity, no gross carotid bruits appreciated Pharynx: No gross oral lesion, tongue midline, mucosa moist Lungs crackles mainly in the right lower lung, no wheezing or rhonchi Heart:bradycardia [id number], no significant murmur or gallop Abd: +BS, Non Tender, Non distended, No gross hepatomegaly Lower Ext: No gross edema, pedal artery pulses are palpable bilaterally Neuro: No new deficits appreciated Musculoskeletal: no gross joint erythema, edema, tenderness Skin: No new change Lab/Current Medication Review: Recent Results (from the past 24 hour(s)) MRSA Only (Staphylococcs aureus) PCR Nasal Collection Time: 08/09/22 6:25 PM Specimen: Nasal Result Value Ref Range PCR Scrn, Methicillin resistant Staphylococcus aureus (MRSA) Not Detected Not Detected CBC without differential Collection Time: 08/10/22 2:40 AM Result Value Ref Range WBC 6.2 3.8 - 9.9 K/cumm Hgb 13.1 13.0 - 17.5 g/dL Hct 40.5 38.9 - 50.3 % Plt 184 150 - 400 K/cumm MPV 12.4 (H) 9.1 - 12.3 fL RBC 4.76 4.30 - 5.80 M/cumm MCV 85.1 81.3 - 96.4 fL MCH 27.5 27.1 - 33.3 pg MCHC 32.3 32.3 - 35.7 g/dL RDW CV 14.3 11.1 - 14.9 % RDW SD 43.6 35.7 - 48.1 fL NRBC abs 0.00 0.00 - 0.01 K/cumm Basic metabolic panel Collection Time: 08/10/22 2:40 AM Result Value Ref Range Sodium 140 135 - 145 mmol/L Potassium, pl 4.3 3.3 - 4.9 mmol/L Chloride 108 97 - 110 mmol/L CO2 21 (L) 22 - 32 mmol/L Anion gap 11 2 - 15 mmol/L BUN 29 (H) 8 - 25 mg/dL Creatinine 1.60 (H) 0.80 - 1.30 mg/dL Glucose 94 70 - 199 mg/dL Calcium 8.5 8.5 - 10.3 mg/dL Calcium, ionized Collection Time: 08/10/22 2:40 AM Result Value Ref Range Calcium, Ionized 4.86 4.50 - 5.20 mg/dL Magnesium Collection Time: 08/10/22 2:40 AM Result Value Ref Range Magnesium 2.4 1.4 - 2.5 mg/dL Phosphorus Collection Time: 08/10/22 2:40 AM Result Value Ref Range Phosphorus, pl 3.4 2.3 - 4.5 mg/dL eGFR Collection Time: 08/10/22 2:40 AM Result Value Ref Range eGFR 45 mL/min/1.73 m2 Current Facility-Administered Medications Medication Dose Route Frequency Provider Last Rate Last Admin acetaminophen (TYLENOL) tablet 650 mg 650 mg oral Q6H PRN Amber Mckinley NP 650 mg at 08/10/22 0411 albuterol HFA (PROVENTIL HFA,VENTOLIN HFA,PROAIR HFA) 90 mcg/actuation inhaler 2 puff 2 puff inhalation Q4H PRN (RT) Stalin Means MD 2 puff at 08/08/22 1600 apixaban (ELIQUIS) tablet 5 mg 5 mg oral Q12H [facility] Ross Galindo MD 5 mg at 08/10/22 0911 aspirin enteric coated tablet 81 mg 81 mg oral Daily Wilfredo Jean-Baptiste MD 81 mg at 08/10/22 0912 atorvastatin (LIPITOR) tablet 40 mg 40 mg oral Daily Wilfredo Jean-Baptiste MD 40 mg at 08/10/22 0911 cefepime (MAXIPIME) 1,000 mg in sodium chloride 0.9% 100 mL IVPB 1,000 mg intravenous Q8H [facility] Stalin Means MD 200 mL/hr at 08/10/22 0530 1,000 mg at 08/10/22 0530 finasteride (PROSCAR) tablet 5 mg 5 mg oral Daily Wilfredo Jean-Baptiste MD 5 mg at 08/10/22 0918 hydrALAZINE (APRESOLINE) injection 20 mg 20 mg intravenous Q4H PRN Stalin Means MD 20 mg at 08/10/22 0408 Lactated Ringer's (LR) infusion 75 mL/hr intravenous Continuous Gaspe Hi Le MD 75 mL/hr at 08/10/22 0918 75 mL/hr at 08/10/22 0918 [Held by Provider] lisinopriL (PRINIVIL,ZESTRIL) tablet 20 mg 20 mg oral Daily Ross Galindo MD 20 mg at 08/09/22 0905 magnesium oxide (MAG-OX) tablet 400 mg 400 mg oral BID Ross Galindo MD 400 mg at 08/10/22 0911 metoprolol XL (TOPROL-XL) extended release tablet 25 mg 25 mg oral Daily Ross Galindo MD 25 mg at 08/10/[address] (PROTONIX) extended release tablet 40 mg 40 mg oral Daily Wilfredo Jean-Baptiste MD 40 mgat 08/10/22 09 ramelteon (ROZEREM) tablet 8 mg 8 mg oral Nightly PRN Amber Mckinley NP 8 mg at 08/09/22 2106 A/P: Principal Problem: Bradycardia Resolved Problems: No resolved hospital problems. Bradycardia Paroxysmal atrial fibrillation Bradycardia has resolved. Patient is currently on low-dose of metoprolol and is tolerating well. Appreciate recommendations from Cardiology ECHO was done reported EF 60% with RSVP 42 , stress test is plan in the future. Continue with apixaban PT/OT to evaluate the patient Acute kidney injury on CKD stage 2 Patient's creatinine has increased to 1.6 indicating Ann I. BUN increased to 29 indicating prerenal. Most likely secondary to poor oral intake We will start gentle hydration with LR at 75 cc 4 hour for 1 L Do a bladder scan to rule out urinary retention Hold lisinopril Continue to monitor with repeat lab work Hospital-acquired pneumonia Patient had worsening cough and shortness of breath yesterday. Chest x-ray showed New opacity in the right lower lung concerning for pneumonia Patient still continues to be symptomatic with shortness of breath and cough. Remains afebrile and hemodynamically stable. MRSA screen is negative, we will discontinue IV vancomycin Continue with IV cefepime day 3. Blood cultures are negative to date Urine Streptococcus antigen negative, urine Legionella antigen negative We will order repeat chest x-ray for tomorrow morning Covid-19 infection Regarding the Covid the patient is asymptomatic no treatment was indicated. Airborne and contact isolation COPD not in exacerbation Patient is not in acute exacerbation NBZ PRN HTN Patient with PMH of HTN Started on lisinopril DVT prophylaxis:apixaban PT/OT: to see the patient Case discussed with Case Management and Helpdesk Manager My total encounter time on 08/10/2022 was 36 minutes which was spent in the activities documented in the note. This includes the time spent prior to the visit and after the visit in direct care of the patient. This time does not include the time spent in any separately reportable services. Voice recognition software [employer] may have been used dictate and transcribe this document. [employer] Operator variances may occur. Despite proofreading, typographical errors may occur. Hi Barrett MD 08/10/2022 1:20 PM ER WELT END * Zee Islas, FACILITY TECHNICIAN - 08/10/2022 10:54 AM CST Physical Therapy 08/10/22 1054 PT Last Visit Session Type Treatment Safe Environment Arm Band Checked;Chair Alarm placed and activated;Call Light within Reach;Patient found sitting in Chair;Overbed Table within Reach Subjective Agreeable to Therapy Family/Caregiver Present No Precautions Precautions Bed/Chair Alarm Precaution Comments Covid Pain Assessment Pain Assessment No/denies pain Cognition Arousal/Alertness Alert Orientation Oriented X4 (person, place, time, situation) Bed Mobility Bed Mobility No Transfers Transfer Yes Transfer 1 Transfer From 1 Sit Transfer Type 1 To and from Transfer to 1 Stand Technique 1 Sit to stand;Stand to sit Transfer Device 1 Wheeled walker Transfer Level of Assistance 1 Minimum Assist Ambulation Ambulation No Ambulation 1 Distance (ft) 1 25 Surface 1 Level tile Device 1 Wheeled walker Assistance 1 Minimum Assist Gait: Requires assist with 1 Maintaining balance Gait: Requires verbal cues to 1 Use assistive device safely;Increase step length;Pace activity;Prevent bumping into environmental barriers (garcia/furniture) Quality of Gait 1 poor/fair Ambulation Comments 1 Pt had been sleeping in the chair but agreed to walk with therapy. Pt is a little unsteady at times and required v/c's for walker technique and safety. Pt was wet from sitting in urine and had dried BM on the gown. Changed gown before leaving. Pt was blowing his nose almost constantly. Pt left in chair with all needs met. Recommendation/Plan PT Recommendation/Plan (S) Intermediate Facility PT Equipment Recommended (S) Wheeled walker Multi-Disciplinary Problems (from Physical Therapy) Active Problems Problem: Mobility Start Date: 08/09/22 Goal Start Date Expected End Date End Date STG - Patient will ambulate 08/09/22 08/23/22 -- Goal Details: The Pt will transfer and ambulate 100 ft with wheeled walker, with CGA +1, and cues, with no significant loss of balance, and with no more than 2 standing rest breaks-progressing Problem: Transfers Start Date: 08/09/22 Goal Start Date Expected End Date End Date STG - Transfer from bed to chair 08/09/22 08/23/22 -- Goal Details: With SBA +1, and cues.-N/T Problem: Balance Start Date: 08/09/22 Goal Start Date Expected End Date End Date STG - Maintains dynamic standing balance with upper extremity support 08/09/22 08/23/22 -- Goal Details: For 5 minutes, with wheeled walker, during daily activities, with CGA +1, and cues.-progressing Problem: PT Misc Start Date: 08/09/22 Goal Start Date Expected End Date End Date PT LTG - Misc 1 08/09/22 08/23/22 -- Goal Details: The Pt will perform Therapeutic AROM ex's for B LE's, in bed or in chair, 2 sets of 10 reps, daily, with cues, and with Therapeutic Rest Breaks, as needed-N/T Reviewed By Jose De Jesus Rogel, RN 08/09/22 0106 Jose De Jesus Rogel, SUE 08/09/22 0017 Educated the patient to the role of physical therapy, plan of care, goals of therapy, rationale forprogressing mobility. Patient was left seated with all needs met and equipment intact. Safety measures include chair alarm activated, oriented to call light and placed within reach, and personal items within reach. Mobility and ADL status posted at bedside and within medical record. ER WELT END * Hi Bravo MD - 08/09/2022 1:23 PM CST Images from the original note were not included. General Medicine Daily Progress SUBJECTIVE The patient was seen and examined at bedside he is hemodynamically stable AOx2- 3, he denies acute complains. Patient got confused in the morning he was quickly reoriented Interval History: The patient is a 76 y.o. y/o male with PMH of CAD, HTN, COPD, s/p BL knee replacement found to have COVID-19 taking paxlovid who wad admitted in the ICU secondary to symptomatic bradycardia the patient received multiple dosis of atropine. Upon arrival to the ICU patient was asymptomatic. Cardiology was consulted recommended to hold his metoprolol, ECHO was done reported EF 60% with RSVP 42 , stress test is plan in the future. Regarding the Covid the patient is asymptomatic no treatment was indicated.Cardiology also recommended to hold beta-blockers and Plavix he was started apixaban. The patient has bradycardia with good chronic tropic response. Patient was move out of the ICU on 08/06/2022. PT/OT was requested to see the patient. Patient developed SOB in the afternoon I did xray showed new infiltrated right lower, started treatment for hospital acquire pneumonia, 08/09/22 Patient seen and examined at bedside. Patient reports not feeling well. He reports that he did not have a good night sleep. He is still feeling short of breath and has a cough. He has remained afebrile. OBJECTIVE Vitals: 24hr Min/Max: Temp Min: 36.5 ??C (97.7 ??F) Max: 36.6 ??C (97.8 ??F) Pulse Min: 58 Max: 75 BP Min: 136/71 Max: 180/78 Resp Min: 12 Max: 36 SpO2 Min: 93 % Max: 97 % Most Recent : Vitals: 08/09/22 0914 BP: (!) 180/78 Pulse: 75 Resp: Temp: SpO2: I/O last 2 completed shifts: In: 700 [P.O.:600; IV Piggyback:100] Out: 775 [Urine:775] No intake/output data recorded. Physical Exam: Eyes: EOMI, OZZY, sclare non icteric Neck: supple, no nuchal ridigity, no gross carotid bruits appreciated Pharynx: No gross oral lesion, tongue midline, mucosa moist Lungs crackles mainly in the right lower lung, no wheezing or rhonchi Heart:bradycardia [id number], no significant murmur or gallop Abd: +BS, Non Tender, Non distended, No gross hepatomegaly Lower Ext: No gross edema, pedal artery pulses are palpable bilaterally Neuro: No new deficits appreciated Musculoskeletal: no gross joint erythema, edema, tenderness Skin: No new change Lab/Current Medication Review: Recent Results (from the past 24 hour(s)) Blood culture Blood Collection Time: 08/08/22 7:44 PM Specimen: Blood Result Value Ref Range Report Preliminary Report: No growth to date. Procalcitonin Collection Time: 08/08/22 7:44 PM Result Value Ref Range Procalcitonin 0.09 0.02 - 0.80 ng/mL Strep pneumoniae antigen, urine Urine Collection Time: 08/09/22 2:40 AM Specimen: Urine Result Value Ref Range S. pneumoniae Ag Negative Negative CBC without differential Collection Time: 08/09/22 6:22 AM Result Value Ref Range WBC 5.5 3.8 - 9.9 K/cumm Hgb 12.7 (L) 13.0 - 17.5 g/dL Hct 39.9 38.9 - 50.3 % Plt 167 150 - 400 K/cumm MPV 12.0 9.1 - 12.3 fL RBC 4.69 4.30 - 5.80 M/cumm MCV 85.1 81.3 - 96.4 fL MCH 27.1 27.1 - 33.3 pg MCHC 31.8 (L) 32.3 - 35.7 g/dL RDW CV 14.2 11.1 - 14.9 % RDW SD 43.3 35.7 - 48.1 fL NRBC abs 0.00 0.00 - 0.01 K/cumm Basic metabolic panel Collection Time: 08/09/22 6:22 AM Result Value Ref Range Sodium 140 135 - 145 mmol/L Potassium, pl 4.1 3.3 - 4.9 mmol/L Chloride 108 97 - 110 mmol/L CO2 22 22 - 32 mmol/L Anion gap 10 2 - 15 mmol/L BUN 19 8 - 25 mg/dL Creatinine 1.20 0.80 - 1.30 mg/dL Glucose 99 70 - 199 mg/dL Calcium 8.6 8.5 - 10.3 mg/dL Calcium, ionized Collection Time: 08/09/22 6:22 AM Result Value Ref Range Calcium, Ionized 4.98 4.50 - 5.20 mg/dL Magnesium Collection Time: 08/09/22 6:22 AM Result Value Ref Range Magnesium 2.2 1.4 - 2.5 mg/dL Phosphorus Collection Time: 08/09/22 6:22 AM Result Value Ref Range Phosphorus, pl 2.6 2.3 - 4.5 mg/dL eGFR Collection Time: 08/09/22 6:22 AM Result Value Ref Range eGFR 63 mL/min/1.73 m2 Current Facility-Administered Medications Medication Dose Route Frequency Provider Last Rate Last Admin acetaminophen (TYLENOL) tablet 975 mg 975 mg oral Q8H [facility] [place], COP[employer] LATHE TENDER 975 mg at 08/09/22 0539 albuterol HFA (PROVENTIL HFA,VENTOLIN HFA,PROAIR HFA) 90 mcg/actuation inhaler 2 puff 2 puff inhalation Q4H PRN (RT) Stalin Means MD 2 puff at 08/08/22 1600 apixaban (ELIQUIS) tablet 5 mg 5 mg oral Q12H MAXI Ross Galindo MD 5 mg at 08/09/22 0906 aspirin enteric coated tablet 81 mg 81 mg oral Daily Wilfredo Jean-Baptiste MD 81 mg at 08/09/22 09 atorvastatin (LIPITOR) tablet 40 mg 40 mg oral Daily Wilfredo Jean-Baptiste MD 40 mg at 08/09/22 09 cefepime (MAXIPIME) 1,000 mg in sodium chloride 0.9% 100 mL IVPB 1,000 mg intravenous Q8H [facility] Stalin Means MD 200 mL/hr at 08/09/22 0538 1,000 mg at 08/09/22 0538 finasteride (PROSCAR) tablet 5 mg 5 mg oral Daily Wilfredo Jean-Baptiste MD 5 mg at 08/09/22 09 hydrALAZINE (APRESOLINE) injection 20 mg 20 mg intravenous Q4H PRN Stalin Means MD 20 mg at 08/09/22 0914 lisinopriL (PRINIVIL,ZESTRIL) tablet 20 mg 20 mg oral Daily Ross Galindo MD 20 mg at magnesium oxide (MAG-OX) tablet 400 mg 400 mg oral BID Ross Galindo MD 400 mg at 08/09/22 09 metoprolol XL (TOPROL-XL) extended release tablet 25 mg 25 mg oral Daily Ross Galindo MD 25 mg at 08/09/[address] (PROTONIX) extended release tablet 40 mg 40 mg oral Daily Wilfredo Jean-Baptiste MD 40 mg at 08/09/22904 vancomycin 750 mg/250 mL in sodium chloride 0.9% (premix) 750 mg 750 mg intravenous Q24H Stalin Means MD A/P: Principal Problem: Bradycardia Resolved Problems: No resolved hospital problems. Bradycardia Paroxysmal atrial fibrillation Bradycardia has resolved. Patient is currently on low-dose of metoprolol and is tolerating well. Appreciate recommendations from Cardiology ECHO was done reported EF 60% with RSVP 42 , stress test is plan in the future. Continue with apixaban PT/OT to evaluate the patient Discharge planning Hospital-acquired pneumonia Patient had worsening cough and shortness of breath yesterday. Chest x-ray showed New opacity in the right lower lung concerning for pneumonia Patient was started on IV cefepime and vancomycin yesterday Blood cultures are still pending, continue to follow-up results MRSA screen ordered and pending, if this is negative we can discontinue IV vancomycin Covid-19 infection Regarding the Covid the patient is asymptomatic no treatment was indicated. Airborne and contact isolation COPD not in exacerbation Patient is not in acute exacerbation NBZ PRN HTN Patient with PMH of HTN Started on lisinopril DVT prophylaxis:apixaban PT/OT: to see the patient Case discussed with Case Management and Helpdesk Manager Medical complexity/risk: Low complexity Voice recognition software MModal Fluency Direct may have been used dictate and transcribe this document. Pinked Edge Sewing Machine Operator variances may occur. Despite proofreading, typographical errors may occur. Hi Barrett MD 08/09/2022 1:24 PM ER WELT END * Jasmin Rodarte RN - 08/09/2022 10:50 AM CST Case Management ICU Care Rounds: Care Team met at bedside to discuss plan of care: Room air with an O2 sat 95% this am. Cefepime 1000mg, vancomycin 750mg, mag/ox 400mg, toprol XL 25 mg. Patient alert and oriented. PT/OT Assessment/Recommendations: Potential D/C Needs: Potential Discharge Needs Home Health: Social work Anticipated discharge level of care: Private residence Pt/Family agrees with Anticipated Level of Care: Yes Patient expects to be discharged to:: Private residence Behavioral Health Services: No (08/08/22 0945) Jasmin Rodarte RN 08/09/2022 2:37 PM ER WELT END * Jadon Archuleta, PT - 08/09/2022 9:48 AM CST Physical Therapy 08/09/22 0948 General Chart Reviewed Yes Session Type Evaluation PT Received On 08/09/22 Safe Environment Arm Band Checked;Chair Alarm placed and activated;Call Light within Reach;NotifiedRN;Patient found sitting in Chair;Overbed Table within Reach Subjective Agreeable to Therapy Subjective Comment The Pt's Chair alarm is going off when this Therapist entered the room. The Pt wants to ambulate to the restroom and have a BM, and then will see how much more he can tolerated. Additional Pertinent History The Pt is in ICU-19, now. The Pt was admitted to ICU on 08/06/22 with bradycardia. The Pt is on COVID isolation prec's. Pt is somewhat confused, at times. Hx of TIA, bilateral TKR's. Please see H and P for more details of Pt's PMH. Pt is being assessed for early signs of dementia. Per SKIP TRACER (Dottie), OK for P.T., as toñito.. Family/Caregiver Present No Physical Therapy-Patient Goal The Pt states that he and his will stay with their Son, temporarily, after discharge from the Hospital, until they are both ready to return home. The Pt's Spouse was just in this Hospital with COVID last week. Precautions Precautions Bed/Chair Alarm;Fall risk;Other (Comment) Precaution Comments COVID isolation. The Pt was very impulsive today about getting up on his own. Home Living Type of Home House Home Layout Able to live on main level with bedroom/bathroom Home Access (2 steps into the home.) Home Mobility Equipment Wheeled walker Additional Comments The Pt repors his Son's house is similar in layout to his own. However, the Pt does seem to be a little confused, at times. This may need to be verified. Prior Function Level of [place] Independent with ADLs;Independent functional transfers;Independent with ambulation;Needs assistance with homemaking Lives With Spouse Receives Help From Spouse/Significant other;Family Driving Yes Mode of Transportation Driven by self;Driven by others Fall within the last 6 months No Fall within the last 6 months comment No reports of recent falls by Pt, or in Epic. However, in Pt's past Hx, there is a report of rib fractures in December of 2021. Activity Tolerance Endurance Tolerates 10 - 20 min activity with multiple rests Activity Tolerance Comments The Pt is COVID POSITIVE. Pt is on room air. The Pt is SOB with limitedactivity, now. O2-sats did not drop below 92%, now. Pain Assessment Pain Assessment No/denies pain Cognition Arousal/Alertness Alert Attention Span Attends with cues to redirect;Distractability Memory Decreased recall of biographical information;Decreased recall of recent events (Pt repeatedly states the year of his is 1929.) Current communication Appears Intact Orientation Oriented to person;Oriented to place;Oriented to time (Pt does not seem to be sure why he is in the Hospital, now.) Following Commands Follows multistep commands with repetition Safety Judgment Impulsive Compliance/Behavior Other (comment) (Initially, he Pt really was in a hurry to get out of the chair and get to the bathroom to have a BM. Later, he was more relaxed.) Endurance Deficit Endurance Deficit Yes Endurance Deficit Description Pt is COVID POSITIVE. On room air. SOB with limited activity. Balance Balance Yes Static Standing Balance Static Standing-Balance Support Bilateral upper extremity supported Static Standing-Standing Surface Floor Static Standing-Level of Assistance Minimum assistance Static Standing-Comment/# of Minutes Pt is unsteady on his feet, now, in general. ICU Mobility Scale ICU Mobility Scale 8 Bed Mobility 1 Bed Mobility Comments 1 Pt is up in cardiac chair, now. The Pt did not want to lie down. Transfer 1 Transfer From 1 Sit Transfer Type 1 To and from Transfer to 1 Stand Technique 1 Sit to stand;Stand to sit Transfer Device 1 Wheeled walker Transfer Level of Assistance 1 Minimum Assist;Minimal verbal cues Trials/Comments 1 Prior to this Therapist bringing wheeled walker into the room, the Pt was repeatedly trying to get up from the cardiac chair, on his own, and thus setting off the chair alarm, but was not able to maintain his standing balance, without the wheeled walker. Ambulation 1 Distance (ft) 1 12 ft, x2. Surface 1 Level tile Device 1 Wheeled walker Other Apparatus 1 Other (Comment) (Gait belt, ICU tele monitor.) Assistance 1 Minimum Assist;Minimal verbal cues Gait: Requires assist with 1 Maintaining balance Gait: Requires verbal cues to 1 Use assistive device safely;Prevent bumping into environmental barriers (garcia/furniture);Improve upright posture;Increase base of support;Pace activity;Utilize pursedlip breathing Quality of Gait 1 Pt is impulsive on the way to the bathroom, and bumping into objects in room withthe wheeled walker. When leaving the bathroom, the Pt was more controlled. RUE Assessment RUE Assessment WFL (Pt appears to be a little shaky in his UE's when using the wheeled walker, but Pt does lean heavily onto the wheeled walker, at times.) LUE Assessment LUE Assessment WFL (Pt appears to be a little shaky in his UE's when using the wheeled walker, but Pt does lean heavily onto the wheeled walker, at times.) RLE Assessment RLE Assessment X (4-/5 B LE strength, in available ROM. Old Bilat TKR's. No pain in LE's, now.) Strength RLE RLE Overall Strength Deficits LLE Assessment LLE Assessment X (4-/5 B LE strength, in available ROM. Old Bilat TKR's. No pain in LE's, now.) Strength LLE LLE Overall Strength Deficits PT Treatment/Exercise Comments PT Treatment/Exercise Comments The Pt was fatigued after ambulating to the restroom, and then back to the chair. Pt to start ex's at a later time. Other Comments Other PT Comments The Pt did request that this Therapist help him with maura-care after he was finished in the restroom. Assessment Prognosis Good (Pending continued resolution of Pt's COVID infection and medical conditions.) Problem List Gait deviations;Decreased strength;Decreased endurance;Impaired balance;Decreased mobility;Decreased safety awareness;Impaired judgement;Decreased ADLs Barriers to Discharge Current Mobility Status;Decreased safety awareness Barriers to Discharge Comments COVID. Plan Plan Plan of care initiated Recommendation/Plan PT Recommendation/Plan (S) Intermediate Facility;Other Patient at high risk for Falls;Readmission;Injury due to decreased ability to care for self;Injury at home as patient has not returned to prior level of function Recommend SNF due to Risk of injury at home;Skilled therapy needed to address care for self in the home;Skilled therapy needed to address functional deficits;Skilled therapy needed for patient to return to prior level of independence PT Recommendation/Plan Comments (S) However, the Pt states he plans to go stay with his Son, which is apparently where his is staying, before he returns home. The Pt's Son may need to be contacted to see if he feels like he can manage the care of both the Pt ans the Pt's , at this time. PT Frequency during current admission 5-7x/wk Treatment/Interventions during current admission Balance Training;Endurance training;Functional activity;Functional transfer training;Gait training;Therapeutic exercise PT Equipment Recommended (S) Other (Comment) (The Pt reports he has a wheeled walker, at home. The Pt's Son may need to be contacted to see if he feels that the Pt has any DME needs, prior to d/c.) Progress during current admission Progressing toward goals PT - Next Appointment 08/23/22 PT Evaluation Complete Yes Multi-Disciplinary Problems (from Physical Therapy) Active Problems Problem: Mobility Start Date: 08/09/22 Goal Start Date Expected End Date End Date STG - Patient will ambulate 08/09/22 08/23/22 -- Goal Details: The Pt will transfer and ambulate 100 ft with wheeled walker, with CGA +1, and cues, with no significant loss of balance, and with no more than 2 standing rest breaks. Problem: Transfers Start Date: 08/09/22 Goal Start Date Expected End Date End Date STG - Transfer from bed to chair 08/09/22 08/23/22 -- Goal Details: With SBA +1, and cues. Problem: Balance Start Date: 08/09/22 Goal Start Date Expected End Date End Date STG - Maintains dynamic standing balance with upper extremity support 08/09/22 08/23/22 -- Goal Details: For 5 minutes, with wheeled walker, during daily activities, with CGA +1, and cues. Problem: PT Misc Start Date: 08/09/22 Goal Start Date Expected End Date End Date PT LTG - Misc 1 08/09/22 08/23/22 -- Goal Details: The Pt will perform Therapeutic AROM ex's for B LE's, in bed or in chair, 2 sets of 10 reps, daily, with cues, and with Therapeutic Rest Breaks, as needed. Educated the patient to the role of physical therapy, plan of care, goals of therapy, rationale forprogressing mobility and home safety. Patient was left in cardiac chair with all needs met and equipment intact. Safety measures include handoff to nurse/tech, chair alarm activated, oriented to call light and placed within reach, and personal items within reach. SKIP TRACER (Dottie) made aware. Mobility and ADL status posted within medical record. ER WELT END * Mark Roque, [facility] - 08/08/2022 9:52 PM CST Vancomycin Pharmacokinetics Consult and Monitoring Verna Zuniga is a 76 y.o. male patient admitted to [facility] 2 [id number]. Pharmacy service has been consulted for vancomycin dosing and monitoring. Therapy Summary: Indication: pneumonia Start Date: 08/08/22 Microbiology: Date Test Results 08/08 MRSA swab ordered 08/08 Blood culture in process 08/06 COVID/RSV/Flu COVID positive Other ordered antimicrobial(s): Antimicrobial Name Start Date Stop Date Cefepime 08/08 TBD Recent Dosing History: Date Dosing Regimen Administration Time(s) Pertinent Levels [Trough/Random] (mcg/mL) Time (hrs) Between Last Dose & Level Comments 08/08 1000 mg x 1 loading dose 2200 () 08/09 750mg q24h 2100 () 08/10 2099 () VT @ 2000 = Dosing Considerations: Body Habitus: Height: Ht Readings from Last 1 Encounters: 08/06/22 170.2 cm (5' 7.01 ) Weight: Wt Readings from Last 1 Encounters: 08/06/22 67.4 kg (148 lb 9.4 oz) Any amputations? No BMI: BMI Readings from Last 1 Encounters: 08/06/22 23.27 kg/m?? --> BMI >35? No. Renal Function: Lab Results Component Value Date CREATININE 1.20 08/08/2022 CREATININE 1.20 08/07/2022 CREATININE 1.20 08/07/2022 CREATININE 1.00 08/06/2022 CREATININE 1.20 08/06/2022 CREATININE 1.2 07/12/2022 CREATININE 1.16 12/08/2021 Baseline SCr (mg/dL) prior to admission/vancomycin therapy: 1.0 - 1.2 Dialysis: N/A Other agents ordered that could contribute to nephrotoxicity of vancomycin (ex. AMG, NSAIDs, IV contrast, amphotericin B, cyclosporine, diuretics, etc.)? No Pharmacokinetic Analysis: Half life (hours): 24.5 hours Expected peak (mcg/mL): 35 Expected trough (mcg/mL): 18.3 [goal: 10-20] Expected Vd (L): 43 Weight-based dosing of regimen (mg/kg based on actual body weight): 11.1 mg/kg Assessment/Plan 1) Renal assessment --- Calculated CrCl (mL/min): 23 mL/min Renal status: Renal function appears stable at this time. Will continue to monitor closely. 2) Dosing plan --- Will load 1000mg x 1 dose, then 750mg every 24 hours . 3) Anticipated duration of therapy --- To be determined 4) Labs ordered --- Next vancomycin level: 08/10 @ 1999 Next BMP/SCr: daily 5) Pharmacy will continue to follow patient's clinical progress throughout admission. Will continueto monitor labs and adjust doses accordingly. Thank you for the opportunity to participate in the care of this patient. Mark Roque [facility] 08/08/2022 9:27 PM ER WELT END * Shravan Galvan MD - 08/08/2022 1:31 PM CST [facility] Cardiology Inpatient Follow Up Note Patient Id: Verna Zuniga is a 76 y.o. male. MR#: [id number] REASON FOR VISIT: Follow up for bradycardia on behalf of Dr. Galindo. SUBJECTIVE No new complaints. No chest pain or dyspnea Telemetry, strips reviewed: Sinus rhythm Current Facility-Administered Medications: albuterol HFA (PROVENTIL HFA,VENTOLIN HFA,PROAIR HFA) 90 mcg/actuation inhaler 2 puff, 2 puff, inhalation, Q4H PRN (RT), Stalin Means MD apixaban (ELIQUIS) tablet 5 mg, 5 mg, oral, Q12H MAXI, Ross Galindo MD, 5 mg at 08/08/22 0842 aspirin enteric coated tablet 81 mg, 81 mg, oral, Daily, Wilfredo Jean-Baptiste MD, 81 mg at 08/08/22 0842 atorvastatin (LIPITOR) tablet 40 mg, 40 mg, oral, Daily, Wilfredo Jean-Baptiste MD, 40 mg at 08/08/22 0842 finasteride (PROSCAR) tablet 5 mg, 5 mg, oral, Daily, Wilfredo Jean-Baptiste MD, 5 mg at 08/08/22 0842 hydrALAZINE (APRESOLINE) injection 20 mg, 20 mg, intravenous, Q4H PRN, Stalin Means MD, 20 mg at 08/08/22 0957 lisinopriL (PRINIVIL,ZESTRIL) tablet 20 mg, 20 mg, oral, Daily, Ross Galindo MD, 20 mg at 08/08/22 0841 magnesium oxide (MAG-OX) tablet 400 mg, 400 mg, oral, BID, Ross Galindo MD, 400 mg at 08/08/22 0842 metoprolol XL (TOPROL-XL) extended release tablet 25 mg, 25 mg, oral, Daily, Ross Galindo MD,25 mg at 08/08/[address] (PROTONIX) extended release tablet 40 mg, 40 mg, oral, Daily, Wilfredo Jean-Baptiste MD, 40 mg at 08/08/22 0842 PHYSICAL EXAMINATION BP 166/80 (BP Location: Left arm) Pulse 58 Temp 36.4 ??C (97.6 ??F) (Oral) Resp 18 Ht 170.2cm (5' 7.01 ) Wt 67.4 kg (148 lb 9.4 oz) SpO2 96% BMI 23.27 kg/m?? General: No acute distress Psychiatric: Normal affect, oriented Neurologic: No focal deficits Labs Recent Labs Lab Units 08/08/2235 08/07/22 0548 08/06/22 0032 HEMOGLOBIN g/dL 13.1 13.0 14.3 HEMATOCRIT % 40.9 40.4 44.5 WBC K/cumm 4.6 4.5 4.9 PLATELETS K/cumm 163 142* 161 Recent Labs Lab Units 08/08/2235 08/06/22 0742 08/06/22 0032 SODIUM mmol/L 141 < > 142 POTASSIUM PLASMA mmol/L 3.9 < > 3.7 CHLORIDE mmol/L 106 < > 107 CO2 mmol/L 25 < > 28 ANIONGAP mmol/L 6 < > 7 GLUCOSE mg/dL 101 < > 71 POC GLUCOSE MONITOR -- < > -- BUN SERUM mg/dL 21 < > 30* CREATININE mg/dL 1.20 < > 1.20 CALCIUM mg/dL 8.9 < > 8.9 ALBUMIN g/dL -- -- 4.0 ALK PHOS Units/L -- -- 109 ALT Units/L -- -- 14 AST Units/L -- -- 16 BILIRUBIN TOTAL mg/dL -- -- 0.4 < > = values in this interval not displayed. ASSESSMENT/PLAN: Paroxysmal atrial fibrillation: Currently in sinus rhythm. Continue apixaban for thromboembolic risk reduction with elevated chads Vasc score. Hemoglobin stable. Echocardiogram with no evidence of structural heart disease. Outpatient stress test with Dr. Galindo upon recovery from COVID. Maintained on low-dose metoprolol 25 mg daily. Maintained on magnesium oxide 400 mg b.i.d. COVID-19: Appears to be relatively asymptomatic. Further management per Internal Medicine. Hypertension: Blood pressure optimal. Continue lisinopril 20 mg daily. Metoprolol as above. No further cardiac recommendations during current hospitalization. Recommend follow-up with primarycardiologist, Dr. Galindo as an outpatient within 2 weeks. Will sign off from a cardiology standpoint. Please contact us if there is a change in cardiac status or new cardiac concerns arise. Thank you for involving us in the care of your patient. Shravan Galvan MD, [facility], Cardiovascular Medicine Office: [phone] This note is dictated via voice recognition software, despite proof reading typographical error arepossible. ER WELT END * Stalin Means MD - 08/08/2022 11:04 AM CST Images from the original note were not included. General Medicine Daily Progress SUBJECTIVE The patient was seen and examined at bedside he is hemodynamically stable AOx2- 3, he denies acute complains. Patient got confused in the morning he was quickly reoriented Interval History: The patient is a 76 y.o. y/o male with PMH of CAD, HTN, COPD, s/p BL knee replacement found to have COVID-19 taking paxlovid who wad admitted in the ICU secondary to symptomatic bradycardia the patient received multiple dosis of atropine. Upon arrival to the ICU patient was asymptomatic. Cardiology was consulted recommended to hold his metoprolol, ECHO was done reported EF 60% with RSVP 42 , stress test is plan in the future. Regarding the Covid the patient is asymptomatic no treatment was indicated.Cardiology also recommended to hold beta-blockers and Plavix he was started apixaban. The patient has bradycardia with good chronic tropic response. Patient was move out of the ICU on 08/06/2022. PT/OT was requested to see the patient. Patient developed SOB in the afternoon I did xray showed new infiltrated right lower, started treatment for hospital acquire pneumonia, OBJECTIVE Vitals: 24hr Min/Max: Temp Min: 36.2 ??C (97.2 ??F) Max: 36.9 ??C (98.4 ??F) Pulse Min: 59 Max: 84 BP Min: 121/95 Max: 197/93 Resp Min: 7 Max: 27 SpO2 Min: 94 % Max: 97 % Most Recent : Vitals: 08/08/22 1045 BP: 144/82 Pulse: Resp: Temp: SpO2: I/O last 2 completed shifts: In: 780 [P.O.:780] Out: 1100 [Urine:1100] I/O this shift: In: 240 [P.O.:240] Out: 175 [Urine:175] Physical Exam: Eyes: EOMI, OZZY, sclare non icteric Neck: supple, no nuchal ridigity, no gross carotid bruits appreciated Pharynx: No gross oral lesion, tongue midline, mucosa moist Lungs CTA Heart:bradycardia [id number], no significant murmur or gallop Abd: +BS, Non Tender, Non distended, No gross hepatomegaly Lower Ext: No gross edema, pedal artery pulses are palpable bilaterally Neuro: No new deficits appreciated Musculoskeletal: no gross joint erythema, edema, tenderness Skin: No new change Lab/Current Medication Review: Recent Results (from the past 24 hour(s)) ECG 12 lead Collection Time: 08/07/22 1:31 PM Result Value Ref Range Ventricular Rate EKG/Min 76 BPM Atrial Rate [address]-Interval (MSEC) 300 ms QRS-Interval (MSEC) 122 ms QT-Interval (MSEC) 400 ms QTc 450 ms P Nebo -2 degrees R Nebo -39 degrees T Nebo 105 degrees Diagnosis Sinus rhythm with 1st degree A-V block Occasional Premature ventricular complexes Left axis deviation Intraventricular conduction defect ST & T wave abnormality, consider lateral ischemia Abnormal ECG When compared with ECG of 06-AUG-2022 05:34, Sinus rhythm has replaced Atrial fibrillation QT has shortened CBC without differential Collection Time: 08/08/22 5:35 AM Result Value Ref Range WBC 4.6 3.8 - 9.9 K/cumm Hgb 13.1 13.0 - 17.5 g/dL Hct 40.9 38.9 - 50.3 % Plt 163 150 - 400 K/cumm MPV 11.7 9.1 - 12.3 fL RBC 4.81 4.30 - 5.80 M/cumm MCV 85.0 81.3 - 96.4 fL MCH 27.2 27.1 - 33.3 pg MCHC 32.0 (L) 32.3 - 35.7 g/dL RDW CV 14.0 11.1 - 14.9 % RDW SD 43.4 35.7 - 48.1 fL NRBC abs 0.00 0.00 - 0.01 K/cumm Basic metabolic panel Collection Time: 08/08/22 5:35 AM Result Value Ref Range Sodium 141 135 - 145 mmol/L Potassium, pl 3.9 3.3 - 4.9 mmol/L Chloride 106 97 - 110 mmol/L CO2 25 22 - 32 mmol/L Anion gap 6 2 - 15 mmol/L BUN 21 8 - 25 mg/dL Creatinine 1.20 0.80 - 1.30 mg/dL Glucose 101 70 - 199 mg/dL Calcium 8.9 8.5 - 10.3 mg/dL Calcium, ionized Collection Time: 08/08/22 5:35 AM Result Value Ref Range Calcium, Ionized 5.05 4.50 - 5.20 mg/dL Magnesium Collection Time: 08/08/22 5:35 AM Result Value Ref Range Magnesium 2.1 1.4 - 2.5 mg/dL Phosphorus Collection Time: 08/08/22 5:35 AM Result Value Ref Range Phosphorus, pl 2.4 2.3 - 4.5 mg/dL eGFR Collection Time: 08/08/22 5:35 AM Result Value Ref Range eGFR 63 mL/min/1.73 m2 Current Facility-Administered Medications Medication Dose Route Frequency Provider Last Rate Last Admin albuterol HFA (PROVENTIL HFA,VENTOLIN HFA,PROAIR HFA) 90 mcg/actuation inhaler 2 puff 2 puff inhalation Q4H PRN (RT) Stalin Means MD apixaban (ELIQUIS) tablet 5 mg 5 mg oral Q12H [facility] Ross Galindo MD 5 mg at 08/08/22 0842 aspirin enteric coated tablet 81 mg 81 mg oral Daily Wilfredo Jean-Baptiste MD 81 mg at 08/08/22 0842 atorvastatin (LIPITOR) tablet 40 mg 40 mg oral Daily Wilfredo Jean-Baptiste MD 40 mg at 08/08/22 0842 finasteride (PROSCAR) tablet 5 mg 5 mg oral Daily Wilfredo Jean-Baptiste MD 5 mg at 08/08/22 0842 hydrALAZINE (APRESOLINE) injection 20 mg 20 mg intravenous Q4H PRN Stalin Means MD 20 mg at 08/08/22 0957 lisinopriL (PRINIVIL,ZESTRIL) tablet 20 mg 20 mg oral Daily Ross Galindo MD 20 mg at 841 magnesium oxide (MAG-OX) tablet 400 mg 400 mg oral BID Ross Galindo MD 400 mg at 08/08/22 08 metoprolol XL (TOPROL-XL) extended release tablet 25 mg 25 mg oral Daily Ross Galindo MD 25 mg at 08/08/[address] (PROTONIX) extended release tablet 40 mg 40 mg oral Daily Wilfredo Jean-Baptiste MD 40 mgat 08/08/22841 A/P: Principal Problem: Bradycardia Resolved Problems: No resolved hospital problems. Bradycardia Patient with with good chronic tropic response Hold beta-blockers. Cardiology was consulted recommended to hold his metoprolol, ECHO was done reported EF 60% with RSVP 42 , stress test is plan in the future. Cardiology also recommended to hold beta-blockers and Plavix he was started apixaban. PT/OT to evaluate the patient Discharge planning Covid-19 infection Regarding the Covid the patient is asymptomatic no treatment was indicated. Airborne and contact isolation Patient developed SOB in the afternoon I did xray showed new infiltrated right lower, started treatment for hospital acquire pneumonia, COPD Patient is not in acute exacerbation NBZ PRN HTN Patient with PMH of HTN Started on lisinopril DVT prophylaxis:apixaban PT/OT: to see the patient Case discussed with Case Management and Helpdesk Manager Medical complexity/risk: Low complexity case it took me 15 minutes review the case, place pertinentorders, discussed current findings with the patient and examined him Voice recognition software MModal Fluency Direct may have been used dictate and transcribe this document. Pinked Edge Sewing Machine Operator variances may occur. Despite proofreading, typographical errors may occur. Stalin Stephens MD 08/08/2022 11:04 AM ER WELT END ER [facility]ELT END * Jasmin Rodarte RN - 08/08/2022 9:45 AM CST CM Initial Assessment Interview Note Information Obtained From: Patient (08/08/22944) Admission Source: Patient to ED from home with Son Impression: 08/06/2022 Patient presented to ED from home with bradycardia. Three days ago the patientwas diagnosed with COVID-19 pneumonia and his only symptoms were mild cough and mild shortness of breath. He does not have any lightheadedness he has no abdominal pain and no chest pain. Patient's heart rate at home was 35-55. At rest the patient denied any complaints at this time. Of note the patient is also being worked up for the beginning stages of dementia. Currently he is alert and orientedx3 and does not have any confusion Plan Includes: Respiratory, cardiovascular and infectious disease management. Primary Source of Transportation: Private vehicle Does the patient need discharge transport arranged?: No (08/08/22944) Health Insurance Coverage: Medicare A & B, AARP Supplement Pharmacy: [id number] - [place] - [address] [place] [address] [place] [phone] [facility] - [place] [id number] [facility] [address] [address] [facility] ) - [place], [place] - [address] [facility] [phone] Primary Care Provider: Christine Herzog MD Prior to Admission: Primary Caregiver: Self Who does the patient or legal guardian want to receive education instruction and discharge plans for after care assistance?: Decline Support System: Spouse/Significant Other, Children Support system contact info (name, phone, availablity): Ian Zuniga Son,Summer Zuniga Spouse Durable Medical Equipment: None Living Arrangements: Spouse/significant other Type of Residence: Private residence Steps in home? : Yes, Outside of home Number of steps outside:: 2 steps (08/06/22542) SDOH: Transportation: In the past 12 months, has lack of transportation kept you from medical appointments or from getting medications?: No In the past 12 months, has lack of transportation kept you from meetings, work, or from getting things needed for daily living?: No (08/08/22 130) Financial Resource: How hard is it for you to pay for the very basics like food, housing, medical care, and heating?: Not hard at all (08/08/22 1302) Housing: Social Connections: In a typical week, how many times do you talk on the phone with family, friends, or neighbors?: More than three times a week How often do you get together with friends or relatives?: More than three times a week How often do you attend congregational or christianity services?: Never Do you belong to any clubs or organizations such as congregational groups, unions, fraternal or athletic groups, or school groups?: No How often do you attend meetings of the clubs or organizations you belong to?: Never Are you , , , , never , or living with a partner?: (08/08/221302) Potential discharge needs include: CM will continue to monitor for any additional D/C needs. Home Health: Social work (08/08/22944) Dialysis: no Behavioral Health Services: Behavioral Health Services: No (08/08/22944) Patient expects to be Discharged to: Private residence, (08/08/22944) Additional Information: Patient lives at home with . Two sons and a daughter live close by to assist as needed. Patient plans to return home with . Patient's Identified Problem/Goal: Bradycardic, COVID 19 positive. Goal: Stabilize cardiovascular status, infectious disease status and return home. Problem: Ensure acute medical needs are met and that patient has a safe discharge plan. Goal: Secure a discharge plan that patient/family are agreeable with and ensure patient has continuum of care. Case management will follow for discharge planning and send referrals as needed. Goals include: To assure continuity of care, To maximize coping skills, To assure patient is in a safe environment and To assure access to community resources. Plan includes: 1. Collaboration with patient, MD, direct care nurse, Helpdesk Manager, and other members of the health care team to assure needed interventions completed. 2. Return patient to optimal level of self-care post discharge. 3. Network Security Architect will follow for Discharge Planning - interventions as needed 4. Anticipated level of care at discharge 5. Planned Discharge Disposition Jasmin Rodarte RN ER WELT END * Ross Galindo MD - 08/07/2022 10:55 AM CST Cardiology daily progress note Patient Name: Verna Zuniga : 1945 Date of Service: 08/07/22 Requesting Attending: Stalin Means* Reason for Consult: Other: bradycardia Chief Complaint: Bradycardia HPI Verna Zuniga is a 76 y.o. 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 His EKG in the ER showed a heart rate of 48 beats minute but he wasin atrial fibrillation he had PVCs as well. He has a nonspecific intraventricular conduction delay and nonspecific T-wave abnormality as well as high lateral ST T-wave abnormality. He was on metoprolol succinate 50 mg daily at home. He was given some atropine in the ER as his heart rate evidently went down into the 30s and they gave him some atropine and briefly went up into the 60s. The patient only noted that he was bradycardic and he came to the ER as his family usually checks his pulse every night in his vital signs every night before he goes to bed and he was found to be bradycardic. Inci dentally he was found to be positive for COVID when he was tested as his also has COVID and she is been hospitalized he is asymptomatic. He is not been hypotensive in fact he has been hypertensive with blood pressures 157/102 mmHg this morning . He did have troponins done which were 23, 24, 22 and 21 He denies any chest pain, shortness of breath, paroxsymal nocturnal dyspnea, orthopnea, dizziness, syncope, palpitations or edema. 08/07/2022 His echocardiogram done yesterday on 08/06/2021 showed [id number] left atrial enlargement, mildly dilated right atrium, normal left ventricular systolic function with an ejection fraction of 60-65%. He has normal RV cavity size and normal RV systolic function. He has trace to mild tricuspid re gurgitation mild pulmonary hypertension with RV systolic pressure 42 mm Hg. IVC appears dilated. Mitral inflow consistent with a rhythm of atrial fibrillation. He spontaneously converted to sinus rhythm about one hour ago but has frequent PACs and PVCs and at times he has ventricular bigeminy. He denies any chest pain, shortness of breath or any palpitations. Review of Systems: 12 system review of systems are negative except for what is noted in the HPI PMHX: has a past medical history of Mayo esophagus, Chronic obstructive pulmonary disease (CMS/HCC) (), Diabetes mellitus (), GERD (gastroesophageal reflux disease), OTHER MEDICAL (2012), OTHER MEDICAL, Hyperlipidemia, and Hypertension. PSHX: has a past surgical history that includes Other surgical history (2002); Other surgical history; Other surgical history (2012); and Colonoscopy (2009). Family Hx: family history includes Alzheimer's disease in his father; Cancer in his mother; Diabetes in his mother; Heart disease in his mother; Hypertension in his mother; Stroke (age of onset: 66) in his mother. Social Hx: reports that he quit smoking about 14 years ago. His smoking use included cigarettes. Hehas a 25.00 pack-year smoking history. He has never used smokeless tobacco. He reports that he doesnot use drugs. Patient denies consuming alcoholic drinks. Allergies: Allergies Allergen Reactions Ciprofloxacin Rash Reaction: RASH, Reaction: Rash, Home Medications: HOME MEDICATIONS : aspirin 81 mg tablet atorvastatin (LIPITOR) 40 mg tablet clopidogreL (PLAVIX) [address] (NexIUM) 40 mg capsule finasteride (PROSCAR) 5 mg tablet metoprolol XL (TOPROL-XL) 50 mg extended release tablet nirmatrelvir 300 mg-ritonavir 100 mg (PAXLOVID 300mg-100 mg) tablets,dose pack tablets in a dose pack (EUA) Current Medications: apixaban, 5 mg, oral, Q12H MAXI aspirin, 81 mg, oral, Daily atorvastatin, 40 mg, oral, Daily finasteride, 5 mg, oral, Daily lisinopriL, 10 mg, oral, Daily pantoprazole DR, 40 mg, oral, Daily Objective Vital Signs: 24hr Min/Max: Temp Min: 36.6 ??C (97.9 ??F) Max: 37.1 ??C (98.8 ??F) Pulse Min: 38 Max: 68 BP Min: 126/62 Max: 167/77 Resp Min: 4 Max: 26 SpO2 Min: 94 % Max: 98 % Most Recent: Vitals: 08/07/22 1000 BP: Pulse: 57 Resp: 9 Temp: SpO2: 95% Intake/Output: Intake/Output Summary (Last 24 hours) at 08/07/2022 1056 Last data filed at 08/07/2022 0345 Gross per 24 hour Intake 120 ml Output 1275 ml Net -1155 ml Physical Exam: GENERAL APPEARANCE: The patient is in no acute distress. HEAD: Atraumatic, normocephalic. EYES: No scleral icterus. NECK/THYROID: Neck is supple without lymphadenopathy. Carotid pulses 2+, normal carotid upstroke, no carotid bruits. SKIN: No rashes and no jaundice seen. HEART: The rhythm is irregularly irregular S1 and S2 were auscultated with no murmurs gallops or rubs. LUNGS: Clear to auscultation bilaterally. ABDOMEN: Normal bowel sounds, soft nondistended, no tenderness. EXTREMITIES: No cyanosis, clubbing or edema. NEUROLOGIC: Grossly intact. PSYCH: Alert and oriented x 3. Lab/Radiology/Diagnostic Review: Labs: Recent Labs Lab Units 08/07/22 0548 08/06/22 0032 HEMOGLOBIN g/dL 13.0 14.3 HEMATOCRIT % 40.4 44.5 WBC K/cumm 4.5 4.9 PLATELETS K/cumm 142* 161 Recent Labs Lab Units 08/07/22 0548 08/07/22 0535 08/06/22 1222 SODIUM mmol/L 143 141 -- POTASSIUM PLASMA mmol/L 3.7 3.7 -- CHLORIDE mmol/L 111* 110 -- CO2 mmol/L 23 -- ANIONGAP mmol/L 10 8 -- BUN SERUM mg/dL 24 24 -- CREATININE mg/dL 1.20 1.20 1.00 CALCIUM mg/dL 8.3* 8.4* -- MAGNESIUM mg/dL 2.1 2.0 2.1 Recent Labs Lab Units 08/06/22 0032 ALBUMIN g/dL 4.0 ALK PHOS Units/L 109 AST Units/L 16 ALT Units/L 14 BILIRUBIN TOTAL mg/dL 0.4 TTE: 08/06/2021 showed [id number] left atrial enlargement, mildly dilated right atrium, normal left ventricular systolic function with an ejection fraction of 60-65%. He has normal RV cavity size and normal RV systolic function. He has trace to mild tricuspid regurgitation mild pulmonary hypertension with RV systolic pressure 42 mm Hg. IVC appears dilated. Mitral inflow consistent with a rhythm of atrial fibrillation. 05/08/2019 Normal left ventricular systolic function with no focal wall motion abnormalities, normal left ventricular cavity size, normal left ventricular wall thickness, impaired diastolic relaxation, grade 1,ejection fraction visually estimated at 65-70%, RV systolic pressure could not be estimated due to i nadequate TR jet, technically difficult study with limited views. Assessment/Plan New onset Atrial fibrillation with slow ventricular response in the setting of a patient being on metoprolol succinate with acute diagnosis of COVID infection. Chads 2 Vasc score of four Bradycardia, pulse rate is also confounded by the issue that he is having frequent PVCs in additionto having a slower heart rate. The PVCs do not typically conduct. Mildly elevated high sensitivity troponin Ts with no significant delta, no evidence of ACS [id number]-[id number] left atrial enlargement and mild dilated right atrium on echocardiogram done on 08/06/2022 Mild pulmonary hypertension with RV systolic pressure 42 mm Hg on echocardiogram done on 08/06/2022 Trace to mild tricuspid regurgitation by echocardiogram done on 08/06/2022 Active COVID infection, asymptomatic. History of hypertension - poorly controlled Pure hypercholesterolemia on atorvastatin GERD History of TIA back in 2019 placed on Plavix Initially reported left internal carotid was occluded but subsequent imaging by vascular surgery found that this was not the case and widely patent left and right internal carotid arteries on a CT scan Osteoarthritis status post bilateral knee replacement Mild thrombocytopenia tolerating Eliquis with no bleeding Plan-I do recommend continuing to hold his metoprolol. I will give him 40 mEq potassium chloride tokeep his potassium above 4 and I will check a magnesium level off the blood drawn this morning and if it is less than 2 all supplement his magnesium. I will check a 2D echo with Doppler. Will anticoagulate him if his LV function is normal then will place him on a direct oral anticoagulant in the meantime I will place him on heparin weight based protocol. Will plan for stress testing on him at some point but however he has COVID now and I would like to hold off doing a stress test if his LV function is normal as an outpatient once he is over COVID. I would absolutely avoid remdesivir for 2 reas ons 1. He is asymptomatic from his COVID and 2. It would worsen his bradycardia. Ventricular are now running around 60 beats per minute from a cardiology standpoint he can be moved out of the ICU andgo to a telemetry floor. I will also check a TSH with reflex. Will monitor his rates and his rhythmon telemetry off beta-blockers and off all rate controlling drugs. I will stop his Plavix as his Plavix was started in light of his TIA back in 2018 and will switch him eventually to a direct oral anticoagulant and heparin in the meantime. If his LV function is normal then will place him on Eliquis. I will start him on lisinopril 10 mg daily for his blood pressure. I will check a CBC, BMP and a ma gnesium level in the morning. 08/07/2022 Potassium is 3.7, I will give him 40 mEq potassium chloride to keep his potassium above 4 his magnesium is adequate at 2.1 but will start on mag oxide 400 mgs bid in light I will restart a low dose of metoprolol and start on metoprolol succinate 25 mg daily and will increase lisinopril from 10-20 mg daily in light of his elevated blood pressure. Will monitor him 1 more day in the hospital in light of his frequent ectopy hopefully he can go home tomorrow. Since he has a history of TIA I will continue the aspirin but his Plavix has been discontinued. I will continue Eliquis 5 mg p.o. b.I.d.. I will get a BMP and a CBC as well as a magnesium level in the morning. I will check an EKG to document his sinus rhythm. I will plan to do an outpatient stress test on him once he is recovered from COVID. He can move out to the telemetry floor. I will have Dr. Galvan my associate cover for me tomorrow. Thank you for allowing me to participate in the patient's care. I will follow along with you. Ross Galindo MD Cardiology 10:56 AM 08/07/22 ER WELT END * Stalin Means MD - 08/07/2022 10:28 AM CST Images from the original note were not included. General Medicine Daily Progress SUBJECTIVE The patient was seen and examined at bedside he is hemodynamically stable AOx3, he denies acute complains. Interval History: The patient is a 76 y.o. y/o male with PMH of CAD, HTN, COPD, s/p BL knee replacement found to have COVID-19 taking paxlovid who wad admitted in the ICU secondary to symptomatic bradycardia the patient received multiple dosis of atropine. Upon arrival to the ICU patient was asymptomatic. Cardiology was consulted recommended to hold his metoprolol, ECHO was done reported EF 60% with RSVP 42 , stress test is plan in the future. Regarding the Covid the patient is asymptomatic no treatment was indicated.Cardiology also recommended to hold beta-blockers and Plavix he was started apixaban. The patient has bradycardia with good chronic tropic response. Patient was move out of the ICU on 08/06/2022. PT/OT was requested to see the patient. OBJECTIVE Vitals: 24hr Min/Max: Temp Min: 36.6 ??C (97.9 ??F) Max: 37.1 ??C (98.8 ??F) Pulse Min: 38 Max: 68 BP Min: 126/62 Max: 167/77 Resp Min: 4 Max: 26 SpO2 Min: 94 % Max: 98 % Most Recent : Vitals: 08/07/22 1000 BP: Pulse: 57 Resp: 9 Temp: SpO2: 95% I/O last 2 completed shifts: In: 120 [P.O.:120] Out: 1525 [Urine:1525] No intake/output data recorded. Physical Exam: Eyes: EOMI, OZZY, sclare non icteric Neck: supple, no nuchal ridigity, no gross carotid bruits appreciated Pharynx: No gross oral lesion, tongue midline, mucosa moist Lungs CTA Heart:bradycardia [id number], no significant murmur or gallop Abd: +BS, Non Tender, Non distended, No gross hepatomegaly Lower Ext: No gross edema, pedal artery pulses are palpable bilaterally Neuro: No new deficits appreciated Musculoskeletal: no gross joint erythema, edema, tenderness Skin: No new change Lab/Current Medication Review: Recent Results (from the past 24 hour(s)) TSH reflex to free T4 Collection Time: 08/06/22 12:22 PM Result Value Ref Range TSH 1.68 0.30 - 4.20 mcIUnit/mL Magnesium Collection Time: 08/06/22 12:22 PM Result Value Ref Range Magnesium 2.1 1.4 - 2.5 mg/dL Protime-INR Collection Time: 08/06/22 12:22 PM Result Value Ref Range PT 14.9 (H) 12.0 - 14.6 sec INR 1.2 0.9 - 1.2 Creatinine Collection Time: 08/06/22 12:22 PM Result Value Ref Range Creatinine 1.00 0.80 - 1.30 mg/dL eGFR Collection Time: 08/06/22 12:22 PM Result Value Ref Range eGFR 78 mL/min/1.73 m2 Basic metabolic panel Collection Time: 08/07/22 5:35 AM Result Value Ref Range Sodium 141 135 - 145 mmol/L Potassium, pl 3.7 3.3 - 4.9 mmol/L Chloride 110 97 - 110 mmol/L CO2 23 22 - 32 mmol/L Anion gap 8 2 - 15 mmol/L BUN 24 8 - 25 mg/dL Creatinine 1.20 0.80 - 1.30 mg/dL Glucose 93 70 - 199 mg/dL Calcium 8.4 (L) 8.5 - 10.3 mg/dL Magnesium Collection Time: 08/07/22 5:35 AM Result Value Ref Range Magnesium 2.0 1.4 - 2.5 mg/dL eGFR Collection Time: 08/07/22 5:35 AM Result Value Ref Range eGFR 63 mL/min/1.73 m2 Basic metabolic panel Collection Time: 08/07/22 5:48 AM Result Value Ref Range Sodium 143 135 - 145 mmol/L Potassium, pl 3.7 3.3 - 4.9 mmol/L Chloride 111 (H) 97 - 110 mmol/L CO2 22 22 - 32 mmol/L Anion gap 10 2 - 15 mmol/L BUN 24 8 - 25 mg/dL Creatinine 1.20 0.80 - 1.30 mg/dL Glucose 94 70 - 199 mg/dL Calcium 8.3 (L) 8.5 - 10.3 mg/dL Calcium, ionized Collection Time: 08/07/22 5:48 AM Result Value Ref Range Calcium, Ionized 5.05 4.50 - 5.20 mg/dL Magnesium Collection Time: 08/07/22 5:48 AM Result Value Ref Range Magnesium 2.1 1.4 - 2.5 mg/dL Phosphorus Collection Time: 08/07/22 5:48 AM Result Value Ref Range Phosphorus, pl 2.7 2.3 - 4.5 mg/dL CBC with auto differential Collection Time: 08/07/22 5:48 AM Result Value Ref Range WBC 4.5 3.8 - 9.9 K/cumm Hgb 13.0 13.0 - 17.5 g/dL Hct 40.4 38.9 - 50.3 % Plt 142 (L) 150 - 400 K/cumm MPV 11.3 9.1 - 12.3 fL RBC 4.75 4.30 - 5.80 M/cumm MCV 85.1 81.3 - 96.4 fL MCH 27.4 27.1 - 33.3 pg MCHC 32.2 (L) 32.3 - 35.7 g/dL RDW CV 14.2 11.1 - 14.9 % RDW SD 44.0 35.7 - 48.1 fL NRBC abs 0.00 0.00 - 0.01 K/cumm Differential, auto Collection Time: 08/07/22 5:48 AM Result Value Ref Range Neutrophil abs 2.5 1.7 - 6.5 K/cumm Imm gran abs 0.0 0.0 - 0.1 K/cumm Lymphocyte abs 1.3 0.8 - 3.3 K/cumm Monocyte abs 0.4 0.2 - 0.8 K/cumm Eosinophil abs 0.3 0.0 - 0.5 K/cumm Basophil abs 0.1 0.0 - 0.1 K/cumm Neutrophil pct 55.4 % Imm gran pct 0.0 % Lymphocyte pct 28.5 % Monocyte pct 9.4 % Eosinophil pct 5.6 % Basophil pct 1.1 % eGFR Collection Time: 08/07/22 5:48 AM Result Value Ref Range eGFR 63 mL/min/1.73 m2 Current Facility-Administered Medications Medication Dose Route Frequency Provider Last Rate Last Admin apixaban (ELIQUIS) tablet 5 mg 5 mg oral Q12H [facility] Ross Galindo MD 5 mg at 08/07/22921 aspirin enteric coated tablet 81 mg 81 mg oral Daily Wilfredo Jean-Baptiste MD 81 mg at 08/07/22921 atorvastatin (LIPITOR) tablet 40 mg 40 mg oral Daily Wilfredo Jean-Baptiste MD 40 mg at 08/07/22921 finasteride (PROSCAR) tablet 5 mg 5 mg oral Daily Wilfredo Jean-Baptiste MD 5 mg at 08/07/22920 hydrALAZINE (APRESOLINE) injection 10 mg 10 mg intravenous Q4H PRN Wilfredo Jean-Baptiste MD 10 mg at 08/06/22742 lisinopriL (PRINIVIL,ZESTRIL) tablet 10 mg 10 mg oral Daily Ross Galindo MD [address] (PROTONIX) extended release tablet 40 mg 40 mg oral Daily Wilfredo Jean-Baptiste MD 40 mgat 08/07/22920 A/P: Principal Problem: Bradycardia Resolved Problems: No resolved hospital problems. Bradycardia Patient with with good chronic tropic response Hold beta-blockers. Cardiology was consulted recommended to hold his metoprolol, ECHO was done reported EF 60% with RSVP 42 , stress test is plan in the future. Cardiology also recommended to hold beta-blockers and Plavix he was started apixaban. PT/OT to evaluate the patient Discharge planning Covid-19 infection Regarding the Covid the patient is asymptomatic no treatment was indicated. Airborne and contact isolation COPD Patient is not in acute exacerbation NBZ PRN HTN Patient with PMH of HTN Started on lisinopril DVT prophylaxis:apixaban PT/OT: to see the patient Case discussed with Case Management and Helpdesk Manager Medical complexity/risk: Moderate complexity case it took me 38 minutes review the case, place pertinent orders, discussed current findings with the patient and examined him Voice recognition software MModal Fluency Direct may have been used dictate and transcribe this document. Pinked Edge Sewing Machine Operator variances may occur. Despite proofreading, typographical errors may occur. Stalin Stephens MD 08/07/2022 10:28 AM ER [facility] * Stalin Means MD - 08/06/2022 3:14 PM CST The patient is a 76 y.o. y/o male with PMH of CAD, HTN, COPD, s/p BL knee replacement found to haveCOVID-19 taking paxlovid who wad admitted in the ICU secondary to symptomatic bradycardia the patient received multiple dosis of atropine. Upon arrival to the ICU patient was asymptomatic. Cardiology was consulted recommended to hold his metoprolol, ECHO was done result are pending, stress test is plan in the future. Regarding the Covid the patient is asymptomatic no treatment was indicated.Cardiology also recommended to hold beta-blockers and Plavix he was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 level will decrease Outcome: Adequate for Discharge Goals: Clinical Goals for the Shift: participate in PT and stable vital signs and plan for discharge Summary: Patient alert and oriented and vital signs stable. Discharge education given to son when he picked up the patient. After visit summary packet given to son/caregiver. ER [facility]ELT [facility] * Plan of Care - Matteo Olea RN - 08/11/2022 10:51 AM CST [facility] Home Health consult received. [facility] Home Care agency accepted patient with projected start of care within 48 hours of completed referral and discharge. Call placed to patient's home. Interviewed patient's son via phone and discussed [facility] services. Confirmed homebound status and verified patient is currently not active with any other [employer]. Informedpatient's son that staff will be calling within 48 hours regarding an appointment. I sent a secure [employer]iant[employer] chat to Dr. Christine Herzog (PCP). I informed office of patient's projected [facility] HH SOC 08/12/2022. I requested confirmation that she will follow for HH orders/needs. Awaiting response. ER [facility]ELT END * Plan of Care - Padma Arshad RN - 08/10/2022 2:59 PM CST Problem: Health Behavior: Goal: Understanding of discharge needs will improve Outcome: Progressing Problem: Lack of Knowledge: Goal: Ability to state ways to decrease the risk of falls will improve Outcome: Progressing Problem: Safety: Goal: Will remain free from falls Outcome: Progressing Goal: Will remain free from injury from falls Outcome: Progressing Goal: Will remain free from falls and injury in home environment Outcome: Progressing Problem: Activity: Goal: Mobility will improve Outcome: Progressing Problem: Lack of Knowledge: Goal: Understanding of ways to prevent future skin breakdown will improve Outcome: Progressing Goal: Ability to identify appropriate dietary choices will improve Outcome: Progressing Problem: Nutritional: Goal: Dietary intake will improve Outcome: Progressing Goal: Ability to maintain a balanced intake and output will improve Outcome: Progressing Problem: Skin Integrity: Goal: Risk for impaired skin integrity will decrease Outcome: Progressing Goal: Ability to demonstrate warm and dry skin will improve Outcome: Progressing Goal: Circulation will improve to fullest extent possible Outcome: Progressing Problem: Lack of Knowledge: Goal: Ability to develop a pain control plan will improve Outcome: Progressing Goal: Ability to identify pain intensity on a pain scale and rate it consistently will improve Outcome: Progressing Goal: Ability to notify healthcare provider of pain before it becomes unmanageable or unbearable will improve Outcome: Progressing Problem: Medication: Goal: Satisfaction with pain management regimen will improve Outcome: Progressing Problem: Sensory: Goal: Ability to identify factors that increase the pain will improve Outcome: Progressing Goal: Pain level will decrease Outcome: Progressing Problem: Activity: Goal: Ability to return to normal activity level will improve Outcome: Progressing Problem: Lack of Knowledge: Goal: Knowledge of the prescribed therapeutic regimen will improve Outcome: Progressing Problem: Coping: Goal: Ability to cope will improve Outcome: Progressing Problem: Health Behavior: Goal: Identification of resources available to assist in meeting health care needs will improve Outcome: Progressing Problem: Sensory: Goal: Pain level will decrease Outcome: Progressing Goals: Clinical Goals for the Shift: participate in PT and stable vital signs Summary: Patient worked with PT and sitting up in chair. ER WELT END * [facility]IN Note - Araceli Noriega CRITICAL CARE CLINICAL NURSE SPECIALIST - 08/10/2022 2:47 PM CST Images from the original note were not included. Patient Information: OT Eval and Treat Last 72 Hours OT Evaluation No documentation. OT Treatment No documentation. OT Notes Notes from 08/08/22 through 08/10/22 No notes of this type exist for this encounter. , PT Eval and Treat Last 72 Hours PT Evaluation Row Name 08/09/22 0938 Chart Reviewed Yes -EF Session Type Evaluation -EF Safe Environment Arm Band Checked;Chair Alarm placed and activated;Call Light within Reach;NotifiedRN;Patient found sitting in Chair;Overbed Table within Reach -EF Subjective Agreeable to Therapy -EF Subjective Comment The Pt's Chair alarm is going off when this Therapist entered the room. The Pt wants to ambulate to the restroom and have a BM, and then will see how much more he can tolerated. -EF Additional Pertinent History The Pt is in ICU-19, now. The Pt was admitted to ICU on 08/06/22 with bradycardia. The Pt is on COVID isolation prec's. Pt is somewhat confused, at times. Hx of TIA, bilateral TKR's. Please see H and P for more details of Pt's PMH. Pt is being assessed for early signs of dementia. Per SKIP TRACER (Dottie), OK for P.T., as toñito.. -EF Family/Caregiver Present No -EF Physical Therapy-Patient Goal The Pt states that he and his will stay with their Son, temporarily, after discharge from the Hospital, until they are both ready to return home. The Pt's Spouse was just in this Hospital with COVID last week. -EF Precautions Bed/Chair Alarm;Fall risk;Other (Comment) -EF Precaution Comments COVID isolation. The Pt was very impulsive today about getting up on his own. -EF Type of Home House -EF Home Layout Able to live on main level with bedroom/bathroom -EF Home Access -- 2 steps into the home. -EF Home Mobility Equipment Wheeled walker -EF Additional Comments The Pt repors his Son's house is similar in layout to his own. However, the Pt does seem to be a little confused, at times. This may need to be verified. -EF Level of [place] Independent with ADLs;Independent functional transfers;Independent with ambulation;Needs assistance with homemaking -EF Lives With Spouse -EF Receives Help From Spouse/Significant other;Family -EF Driving Yes -EF Mode of Transportation Driven by self;Driven by others -EF Fall within the last 6 months No -EF Fall within the last 6 months comment No reports of recent falls by Pt, or in Epic. However, in Pt's past Hx, there is a report of rib fractures in December of 2021. -EF Endurance Tolerates 10 - 20 min activity with multiple rests -EF Activity Tolerance Comments The Pt is COVID POSITIVE. Pt is on room air. The Pt is SOB with limitedactivity, now. O2-sats did not drop below 92%, now. -EF Pain Assessment No/denies pain -EF Arousal/Alertness Alert -EF Attention Span Attends with cues to redirect;Distractability -EF Memory Decreased recall of biographical information;Decreased recall of recent events Pt repeatedlystates the year of his is 1930. -EF Current communication Appears Intact -EF Orientation Oriented to person;Oriented to place;Oriented to time Pt does not seem to be sure why he is in the Hospital, now. -EF Following Commands Follows multistep commands with repetition -EF Safety Judgment Impulsive -EF Compliance/Behavior Other (comment) Initially, he Pt really was in a hurry to get out of the chair and get to the bathroom to have a BM. Later, he was more relaxed. -EF Endurance Deficit Yes -EF Endurance Deficit Description Pt is COVID POSITIVE. On room air. SOB with limited activity. -EF Balance Yes -EF Static Standing-Balance Support Bilateral upper extremity supported -EF Static Standing-Standing Surface Floor -EF Static Standing-Level of Assistance Minimum assistance -EF Static Standing-Comment/# of Minutes Pt is unsteady on his feet, now, in general. -EF ICU Mobility Scale 8 -EF Bed Mobility Comments 1 Pt is up in cardiac chair, now. The Pt did not want to lie down. -EF Transfer From 1 Sit -EF Transfer Type 1 To and from -EF Transfer to 1 Stand -EF Technique 1 Sit to stand;Stand to sit -EF Transfer Device 1 Wheeled walker -EF Transfer Level of Assistance 1 Minimum Assist;Minimal verbal cues -EF Trials/Comments 1 Prior to this Therapist bringing wheeled walker into the room, the Pt was repeatedly trying to get up from the cardiac chair, on his own, and thus setting off the chair alarm, but was not able to maintain his standing balance, without the wheeled walker. -EF Distance (ft) 1 12 ft, x2. -EF Surface 1 Level tile -EF Device 1 Wheeled walker -EF Other Apparatus 1 Other (Comment) Gait belt, ICU tele monitor. -EF Assistance 1 Minimum Assist;Minimal verbal cues -EF Gait: Requires assist with 1 Maintaining balance -EF Gait: Requires verbal cues to 1 Use assistive device safely;Prevent bumping into environmental barriers (garcia/furniture);Improve upright posture;Increase base of support;Pace activity;Utilize pursedlip breathing -EF Quality of Gait 1 Pt is impulsive on the way to the bathroom, and bumping into objects in room withthe wheeled walker. When leaving the bathroom, the Pt was more controlled. -EF RUE Assessment WFL Pt appears to be a little shaky in his UE's when using the wheeled walker, but Pt does lean heavily onto the wheeled walker, at times. -EF LUE Assessment WFL Pt appears to be a little shaky in his UE's when using the wheeled walker, but Pt does lean heavily onto the wheeled walker, at times. -EF RLE Assessment X 4-/5 B LE strength, in available ROM. Old Bilat TKR's. No pain in LE's, now. -EF RLE Overall Strength Deficits -EF LLE Assessment X 4-/5 B LE strength, in available ROM. Old Bilat TKR's. No pain in LE's, now. -EF LLE Overall Strength Deficits -EF PT Treatment/Exercise Comments The Pt was fatigued after ambulating to the restroom, and then back to the chair. Pt to start ex's at a later time. -EF Other PT Comments The Pt did request that this Therapist help him with maura-care after he was finished in the restroom. -EF Prognosis Good Pending continued resolution of Pt's COVID infection and medical conditions. -EF Problem List Gait deviations;Decreased strength;Decreased endurance;Impaired balance;Decreased mobility;Decreased safety awareness;Impaired judgement;Decreased ADLs -EF Barriers to Discharge Current Mobility Status;Decreased safety awareness -EF Barriers to Discharge Comments COVID. -EF Plan Plan of care initiated -EF PT Recommendation/Plan Intermediate Facility;Other -EF Patient at high risk for Falls;Readmission;Injury due to decreased ability to care for self;Injury at home as patient has not returned to prior level of function -EF Recommend SNF due to Risk of injury at home;Skilled therapy needed to address care for self in the home;Skilled therapy needed to address functional deficits;Skilled therapy needed for patient to return to prior level of independence -EF PT Recommendation/Plan Comments However, the Pt states he plans to go stay with his Son, which is apparently where his is staying, before he returns home. The Pt's Son may need to be contacted to see if he feels like he can manage the care of both the Pt ans the Pt's , at this time. -EF PT Frequency during current admission 5-7x/wk -EF Treatment/Interventions during current admission Balance Training;Endurance training;Functional activity;Functional transfer training;Gait training;Therapeutic exercise -EF PT Equipment Recommended Other (Comment) The Pt reports he has a wheeled walker, at home. The Pt's Son may need to be contacted to see if he feels that the Pt has any DME needs, prior to d/c. -EF Progress during current admission Progressing toward goals -EF PT Evaluation Complete Yes -EF User Will (r) = Recorded By, (t) = Taken By, (c) = Cosigned By Initials Name Effective Dates EF GeremiasJadon, PT 03/03/21 - PT TREATMENT (last 168 hours) PT Treatment Row Name 08/10/22 1054 PT Last Visit Session Type Treatment - Safe Environment Arm Band Checked;Chair Alarm placed and activated;Call Light within Reach;Patient found sitting in Chair;Overbed Table within Reach -JN Subjective Agreeable to Therapy -JN Family/Caregiver Present No -JN Precautions Precautions Bed/Chair Alarm -JN Precaution Comments Covid -JN Pain Assessment Pain Assessment No/denies pain -JN Cognition Arousal/Alertness Alert - Orientation Oriented X4 (person, place, time, situation) -JN Bed Mobility Bed Mobility No -JN Transfers Transfer Yes -JN Transfer 1 Transfer From 1 Sit -JN Transfer Type 1 To and from -JN Transfer to 1 Stand -JN Technique 1 Sit to stand;Stand to sit -JN Transfer Device 1 Wheeled walker -JN Transfer Level of Assistance 1 Minimum Assist -JN Ambulation Ambulation No -JN Ambulation 1 Distance (ft) 1 25 -JN Surface 1 Level tile -JN Device 1 Wheeled walker -JN Assistance 1 Minimum Assist -JN Gait: Requires assist with 1 Maintaining balance -JN Gait: Requires verbal cues to 1 Use assistive device safely;Increase step length;Pace activity;Prevent bumping into environmental barriers (garcia/furniture) - Quality of Gait 1 poor/fair -JN Ambulation Comments 1 Pt had been sleeping in the chair but agreed to walk with therapy. Pt is a little unsteady at times and required v/c's for walker technique and safety. Pt was wet from sitting in urine and had dried BM on the gown. Changed gown before leaving. Pt was blowing his nose almost constantly. Pt left in chair with all needs met. -JN Recommendation/Plan PT Recommendation/Plan Intermediate Facility - PT Equipment Recommended Wheeled walker - User Will (r) = Recorded By, (t) = Taken By, (c) = Cosigned By Initials Name Effective Dates JU Zee Islas, FACILITY TECHNICIAN 11/13/20 - PT Notes 08/09/2022 10:26 PM Progress Notes signed by Jadon Archuleta, PT [facility] * Plan of Care - No Quiroz, SUE - 08/08/2022 4:57 PM CST Goals: Clinical Goals for the Shift: stable VS, comfort & safety, vehicle monitor technician Summary: Added prn hydralazine for SBP greater than 160, up to chair this afternoon, BUENO, increasedRR- prn inhaler utilized, xray ordered. Problem: Health Behavior: Goal: Understanding of discharge needs will improve Outcome: Progressing Problem: Lack of Knowledge: Goal: Ability to state ways to decrease the risk of falls will improve Outcome: Progressing Problem: Safety: Goal: Will remain free from falls Outcome: Progressing Goal: Will remain free from injury from falls Outcome: Progressing Goal: Will remain free from falls and injury in home environment Outcome: Progressing Problem: Activity: Goal: Mobility will improve Outcome: Progressing Problem: Lack of Knowledge: Goal: Understanding of ways to prevent future skin breakdown will improve Outcome: Progressing Goal: Ability to identify appropriate dietary choices will improve Outcome: Progressing Problem: Skin Integrity: Goal: Risk for impaired skin integrity will decrease Outcome: Progressing Goal: Ability to demonstrate warm and dry skin will improve Outcome: Progressing Goal: Circulation will improve to fullest extent possible Outcome: Progressing Problem: Nutritional: Goal: Dietary intake will improve Outcome: Progressing Goal: Ability to maintain a balanced intake and output will improve Outcome: Progressing ER [facility]ELT END * Plan of Care - Flor Holloway RN - 08/08/2022 4:42 AM CST Goals: Clinical Goals for the Shift: stable VS, comfort & safety, cardiac Summary: Problem: Safety: Goal: Will remain free from falls Outcome: Progressing Problem: Safety: Goal: Will remain free from injury from falls Outcome: Progressing Problem: Safety: Goal: Will remain free from falls and injury in home environment Outcome: Progressing Problem: Activity: Goal: Mobility will improve Outcome: Progressing Problem: Lack of Knowledge: Goal: Understanding of ways to prevent future skin breakdown will improve Outcome: Progressing Problem: Skin Integrity: Goal: Risk for impaired skin integrity will decrease Outcome: Progressing Problem: Skin Integrity: Goal: Ability to demonstrate warm and dry skin will improve Outcome: Progressing ER [facility]ELT END * Plan of Care - Laura Chowdhury RN - 08/07/2022 3:53 PM CST Goals: Clinical Goals for the Shift: stable VS, comfort & safety, cardiac Summary: Pt on room air, denies SOB. HR radha in A-fib at the beginning of the day, then converted to SR w/ 1st degree AVB and very frequent PVC's and PAC's. Cardiac MD aware, EKG obtained. PO meds changed today, these were explained to pt & his son at bedside. Pt w/ good appetite, able to feed self & do some self care. Need assistance w/ some bathing. Ptis still weak when standing. Pt denies pain. Problem: Lack of Knowledge: Goal: Ability to state ways to decrease the risk of falls will improve Outcome: Progressing Problem: Safety: Goal: Will remain free from falls Outcome: Progressing Goal: Will remain free from injury from falls Outcome: Progressing Problem: Activity: Goal: Mobility will improve Outcome: Progressing Problem: Lack of Knowledge: Goal: Understanding of ways to prevent future skin breakdown will improve Outcome: Progressing Goal: Ability to identify appropriate dietary choices will improve Outcome: Progressing Problem: Nutritional: Goal: Dietary intake will improve Outcome: Progressing Goal: Ability to maintain a balanced intake and output will improve Outcome: Progressing Problem: Skin Integrity: Goal: Risk for impaired skin integrity will decrease Outcome: Progressing Goal: Ability to demonstrate warm and dry skin will improve Outcome: Progressing Goal: Circulation will improve to fullest extent possible Outcome: Progressing Problem: Health Behavior: Goal: Understanding of discharge needs will improve Outcome: Not Progressing Problem: Safety: Goal: Will remain free from falls and injury in home environment Outcome: Defer ER WELT END * Plan of Care - Michelle Najera RN - 08/07/2022 5:25 AM CST Goals: Clinical Goals for the Shift: monitor vitals, safety, cardiac Summary: Problem: Health Behavior: Goal: Understanding of discharge needs will improve Outcome: Progressing Problem: Lack of Knowledge: Goal: Ability to state ways to decrease the risk of falls will improve Outcome: Progressing Problem: Safety: Goal: Will remain free from falls Outcome: Progressing Goal: Will remain free from injury from falls Outcome: Progressing Goal: Will remain free from falls and injury in home environment Outcome: Progressing Problem: Activity: Goal: Mobility will improve Outcome: Progressing Problem: Lack of Knowledge: Goal: Understanding of ways to prevent future skin breakdown will improve Outcome: Progressing Goal: Ability to identify appropriate dietary choices will improve Outcome: Progressing Problem: Nutritional: Goal: Dietary intake will improve Outcome: Progressing Goal: Ability to maintain a balanced intake and output will improve Outcome: Progressing Problem: Skin Integrity: Goal: Risk for impaired skin integrity will decrease Outcome: Progressing Goal: Ability to demonstrate warm and dry skin will improve Outcome: Progressing Goal: Circulation will improve to fullest extent possible Outcome: Progressing ER WELT END * Plan of Care - Laura Chowdhury RN - 08/06/2022 6:38 PM CST Goals: Clinical Goals for the Shift: monitor vitals, safety, cardiac Summary: Pt w/ HR in the 40's-50's. A-fib w/ slow vent response. MD's aware, meds adjusted. Pt aware of fall risk & is compliant w/ staying in bed & using call light at this time. Pt transfers from W/C to bed using W/C arms, bed rails & table to hold onto. PT consult on chart. O2 needs; none at this time, pt is on RA w/ no SOB. Problem: Safety: Goal: Will remain free from falls Outcome: Progressing Goal: Will remain free from injury from falls Outcome: Progressing Problem: Nutritional: Goal: Dietary intake will improve Outcome: Progressing Goal: Ability to maintain a balanced intake and output will improve Outcome: Progressing Problem: Skin Integrity: Goal: Risk for impaired skin integrity will decrease Outcome: Progressing Goal: Ability to demonstrate warm and dry skin will improve Outcome: Progressing Goal: Circulation will improve to fullest extent possible Outcome: Progressing Problem: Safety: Goal: Will remain free from falls and injury in home environment Outcome: Defer ER WELT END * Plan of Care - Rudy Godinez RN - 08/06/2022 6:05 AM CST Goals: Clinical Goals for the Shift: Maintain vital signs WDL. Rest Summary: pt vital signs stable. Problem: Health Behavior: Goal: Understanding of discharge needs will improve Outcome: Progressing Problem: Lack of Knowledge: Goal: Ability to state ways to decrease the risk of falls will improve Outcome: Progressing Problem: Safety: Goal: Will remain free from falls Outcome: Progressing Goal: Will remain free from injury from falls Outcome: Progressing Goal: Will remain free from falls and injury in home environment Outcome: Progressing ER [facility]ELT END * ED Procedure Note - Mario Small DO - 08/06/2022 4:18 AM [facility]ELT END Associated Order(s): Critical Care Procedure Critical Care Performed by: Mario Small DO Authorized by: Mario Small DO Critical care provider statement: As reflected in the history, physical exam, orders, notes, and/or MDM, I was personally present while the patient was critically ill and provided critical care services for 45 minutes, excluding timeinvolved in separately billable procedures. Critical care was necessary to treat or prevent imminent or life- threatening deterioration of the following condition(s): unstable vital signs tachy/radha arrhythmic event Critical care was time spent by me providing the following: continuous telemetry and continuous pulse oximetry initiation and active titration of vasoactive medications I ordered and reviewed test results and/or imaging studies. I provided emergent necessary critical care medicine services to this patient. I spent time discussing the management of this critically ill patient with consultants and the medical staff. I spent time discussing the management and therapeutic options for this critically ill patient with the patient themselves or with the appropriate designated surrogate decision-maker. I spent time documenting in the medical record. I admitted this patient to an Intensive Care unit (ICU) and discussed management with the admitting team. I admitted this patient to a continuous cardiac monitored bed. Mario Small DO 08/06/22 0419 ER WELT END * ED Procedure Note - Mario Small DO - 08/06/2022 1:26 AM [facility]ELT END Associated Order(s): ECG 12 lead Procedure ECG 12 lead Date/Time: 08/06/2022 1:26 AM Performed by: Mario Small DO Authorized by: Юлия Cruz PA Rate: ECG rate: 48 ECG rate assessment: bradycardic Rhythm: Rhythm: atrial fibrillation Ectopy: Ectopy: bigeminy QRS: QRS axis: Left Conduction: Conduction: abnormal Abnormal conduction: non-specific intraventricular conduction delay ST segments: ST segments: Normal T waves: T waves: normal Mario Small DO 08/06/22 0127 ER WELT END documented in this encounter Plan of Treatment Not on file documented as of this encounter Procedures Procedure Name Priority Date/Time Associated Diagnosis Comments XR CHEST 1 VIEW IP Routine 08/11/2022 9:17 AM [facility] XR SPINE LUMBAR 2 OR 3 VIEWS IP Routine 08/11/2022 9:05 AM [facility] EGFR Routine 08/11/2022 4:38 AM [facility] CALCIUM, IONIZED Routine 08/11/2022 4:38 AM [facility] CBC WITHOUT DIFFERENTIAL Routine 08/11/2022 4:38 AM [facility] PHOSPHORUS Routine 08/11/2022 4:38 AM [facility] MAGNESIUM Routine 08/11/2022 4:38 AM [facility] BASIC METABOLIC PANEL Routine 08/11/2022 4:38 AM [facility] EGFR Routine 08/10/2022 2:40 AM [facility] CALCIUM, IONIZED Routine 08/10/2022 2:40 AM [facility] CBC WITHOUT DIFFERENTIAL Routine 08/10/2022 2:40 AM [facility] PHOSPHORUS Routine 08/10/2022 2:40 AM [facility] MAGNESIUM Routine 08/10/2022 2:40 AM [facility] BASIC METABOLIC PANEL Routine 08/10/2022 2:40 AM [facility] MRSA ONLY (STAPHYLOCOCCUS AUREUS) PCR Routine 08/09/2022 6:25 PM [facility] EGFR Routine 08/09/2022 6:22 AM [facility] CALCIUM, IONIZED Routine 08/09/2022 6:22 AM [facility] CBC WITHOUT DIFFERENTIAL Routine 08/09/2022 6:22 AM [facility] PHOSPHORUS Routine 08/09/2022 6:22 AM [facility] MAGNESIUM Routine 08/09/2022 6:22 AM [facility] BASIC METABOLIC PANEL Routine 08/09/2022 6:22 AM [facility] STREP PNEUMONIAE AG, URINE Routine 08/09/2022 2:40 AM [facility] LEGIONELLA ANTIGEN, URINE Routine 08/09/2022 2:40 AM [facility] PROCALCITONIN Routine 08/08/2022 7:44 PM [facility] MYCOPLASMA PNEUMONIAE ANTIBODY, IGG AND IGM Routine 08/08/2022 7:44 PM [facility] BLOOD CULTURE Routine 08/08/2022 7:44 PM [facility] BLOOD CULTURE Routine 08/08/2022 7:42 PM [facility] XR CHEST 1 VIEW ED Urgent/IP Urgent 08/08/2022 5:25 PM [facility] EGFR Routine 08/08/2022 5:35 AM [facility] CALCIUM, IONIZED Routine 08/08/2022 5:35 AM [facility] CBC WITHOUT DIFFERENTIAL Routine 08/08/2022 5:35 AM [facility] PHOSPHORUS Routine 08/08/2022 5:35 AM [facility] MAGNESIUM Routine 08/08/2022 5:35 AM [facility] BASIC METABOLIC PANEL Routine 08/08/2022 5:35 AM [facility] ECG 12-LEAD STAT 08/07/2022 1:31 PM [facility] EGFR Routine 08/07/2022 5:48 AM [facility] DIFFERENTIAL AUTO Routine 08/07/2022 5:4 8 AM [facility] CALCIUM, IONIZED Routine 08/07/2022 5:48 AM [facility] CBC WITH AUTO DIFFERENTIAL Routine 08/07/2022 5:48 AM [facility] PHOSPHORUS Routine 08/07/2022 5:48 AM [facility] MAGNESIUM Routine 08/07/2022 5:48 AM [facility] BASIC METABOLIC PANEL Routine 08/07/2022 5:48 AM [facility] EGFR Routine 08/07/2022 5:35 AM [facility] MAGNESIUM Routine 08/07/2022 5:35 AM [facility] BASIC METABOLIC PANEL Routine 08/07/2022 5:35 AM [facility] CRITICAL CARE Routine 08/06/2022 3:17 PM [facility] Bradycardia EGFR STAT 08/06/2022 12:22 PM [facility] THYROID FUNCTION CASCADE Add-On 08/06/2022 12:22 PM [facility] PROTIME-INR STAT 08/06/2022 12:22 PM [facility] MAGNESIUM Add-On 08/06/2022 12:22 PM [facility] CREATININE STAT 08/06/2022 12:22 PM [facility] TRANSTHORACIC ECHO (TTE) LIMITED/FOLLOW UP W LTD DOPPLER/CF WO CONTRAST STAT 08/06/2022 11:17 AM [facility] POCT GLUCOSE DEVICE Routine 08/06/2022 7 :42 AM [facility] TROPONIN T HIGH-SENSITIVITY 6-HOUR Timed 08/06/2022 6:33 AM [facility] CRITICAL CARE Routine 08/06/2022 5:48 AM [facility] Closed fracture of one rib of right side, initial encounter ECG 12-LEAD Routine 08/06/2022 5:34 AM [facility] TROPONIN T HIGH-SENSITIVITY 4-HR Timed 08/06/2022 4:[address] CRITICAL CARE ILL/INJURED PATIENT INIT 30-74 MIN Routine 08/06/2022 4:18 AM [facility] TROPONIN T HIGH-SENSITIVITY 2-HOUR Timed 08/06/2022 2:36 AM [facility] TROPONIN T HIGH-SENSITIVITY SERIES (BASELINE, 2HR, 4HR, 6HR) STAT 08/06/2022 12:32 AM [facility] INFLUENZA A/B, RSV, AND COVID-19 PCR Routine 08/06/2022 12:32 AM [facility] EGFR STAT 08/06/2022 12:32 AM [facility] DIFFERENTIAL AUTO STAT 08/06/2022 12: 32 AM [facility] PRO B-TYPE NATRIURETIC PEPTIDE STAT 08/06/2022 12:32 AM [facility] CBC WITH AUTO DIFFERENTIAL STAT 08/06/2022 12:32 AM [facility] COMPREHENSIVE METABOLIC PANEL STAT 08/06/2022 12:32 AM [facility] ECG 12-LEAD STAT 08/06/2022 12:16 AM [facility] XR CHEST 1 VIEW ED Urgent/IP Urgent 08/06/2022 12:15 AM [facility] documented in this encounter Results * XR Chest 1 View (08/11/2022 9:17 AM [facility]) Anatomical Region Laterality Modality Body, Chest N/A Computed Radiogr aphy 08/11/2022 10:0 7 AM [facility] Narrative 08/11/2022 10:09 AM [facility] EXAM DESCRIPTION: ?? XR CHEST 1 VIEW REASON FOR STUDY: Asymptomatic Covid19 patient follow up for sob, pt admitted via ED for general weakness, elevated BP and low Heartrate on 08/06/22. TECHNIQUE: ?? Frontal ??radiographic view of the chest acquired. COMPARISON: ?? Chest radiograph 08/08/2022 and 08/06/2022; relevant portions of CT chest/abdomen/pelvis without contrast 12/08/2022. FINDINGS: LUNGS/PLEURA: ?? No focal consolidation. ??No pleural effusion. ??No pneumothorax. HEART/MEDIASTINUM: ?? Stable cardiomediastinal silhouette, noting calcific atherosclerosis at the aortic arch. HARDWARE/LINES/TUBES: ?? None. BONES: ?? No acute abnormality. OTHER: ?? No other significant finding. IMPRESSION: ?? No acute cardiopulmonary process. THIS IS AN ELECTRONICALLY VERIFIED FINAL REPORT 08/11/2022 10:09 AM - Electronically signed by ??Vahe NIEVES D: ??08/11/2022 10:09 AM T: Report ID: [id number] Reading Location: ??[id number] Procedure Note Vahe Luz MD - 08/11/2022 EXAM DESCRIPTION: XR CHEST 1 VIEW REASON FOR STUDY: Asymptomatic Covid19 patient follow up for sob, ptadmitted via ED for general weakness, elevated BP and low Heartrate on 08/06/22. TECHNIQUE: Frontal radiographic view of the chest acquired. COMPARISON: Chest radiograph 08/08/2022 and 08/06/2022; relevantportions of CT chest/abdomen/pelvis without contrast 12/08/2022. FINDINGS: LUNGS/PLEURA: No focal consolidation. No pleural effusion.No pneumothorax. HEART/MEDIASTINUM: Stable cardiomediastinal silhouette, noting calcific atherosclerosis at the aortic arch. HARDWARE/LINES/TUBES: None. BONES: No acute abnormality. OTHER: No other significant finding. IMPRESSION: No acute cardiopulmonary process. THIS IS AN ELECTRONICALLY VERIFIED FINAL REPORT 08/11/2022 10:09 AM - Electronically signed by Vahe NIEVES T: Report ID: [id number] Reading Location: [id number] Nilupa Marielle Le MD IMG XR CT OCEDURES Final Result * XR Spine Lumbar 2 or 3 Views (08/11/2022 9:05 AM [facility]) Anatomical Region Laterality Modality Spine N/A Computed Radiogr aphy 08/11/2022 10:0 5 AM [facility] Narrative 08/11/2022 10:07 AM [facility] EXAM DESCRIPTION: ?? XR SPINE LUMBAR 2 OR 3 VIEWS REASON FOR STUDY: Asymptomatic COVID19 IMCU patient, states he has no back pain, only a scab that is causing him discomfort. TECHNIQUE: ?? 3 ??radiographic views acquired of the lumbar spine. COMPARISON: ?? Relevant portions of CT chest/abdomen/pelvis without contrast 12/08/2021 FINDINGS: SEGMENTATION: ?? No lumbosacral transitional anatomy. ??The lowest fully formed intervertebral disc level is L5-S1. ALIGNMENT: ?? Redemonstration of slight levocurvature of the thoracolumbar spine. VERTEBRAE: ?? Diffuse osteopenia. ??No radiographic evidence of acute fracture. ?? Vertebral body heights unchanged. ??Spondylosis. ?? DISCS: ?? Multilevel variable loss of intervertebral disc height about the lower thoracic and lumbar spine. OTHER: ?? Calcific atherosclerosis of the aorta and branch vasculature. IMPRESSION: ?? 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 THIS IS AN ELECTRONICALLY VERIFIED FINAL REPORT 08/11/2022 10:07 AM - Electronically signed by ??Vahe NIEVES D: ??08/11/2022 10:07 AM T: Report ID: [id number] Reading Location: ??[id number] Procedure Note Vahe Luz MD - 08/11/2022 EXAM DESCRIPTION: XR SPINE LUMBAR 2 OR 3 VIEWS REASON FOR STUDY: Asymptomatic COVID19 IMCU patient, states he has no back pain, only a scab that is causing him discomfort. TECHNIQUE: 3 radiographic views acquired of the lumbar spine. COMPARISON: Relevant portions of CT chest/abdomen/pelvis withoutcontrast 12/08/2021 FINDINGS: SEGMENTATION: No lumbosacral transitional anatomy. The lowest fully formed intervertebral disc level is L5-S1. ALIGNMENT: Redemonstration of slight levocurvature of the thoracolumbar spine. VERTEBRAE: Diffuse osteopenia. No radiographic evidence of acutefracture. Vertebral body heights unchanged. Spondylosis. DISCS: Multilevel variable loss of intervertebral disc height about the lower thoracic and lumbar spine. OTHER: Calcific atherosclerosis of the aorta and branch vasculature. IMPRESSION: Spondylosis and degenerative disc disease of the lowerthoracic through lumbar spine. THIS IS AN ELECTRONICALLY VERIFIED FINAL REPORT 08/11/2022 10:07 AM - Electronically signed by Vahe Luz M.D. EZEQUIEL T: Report ID: [id number] Reading Location: [place] [address] [place] Hi Phanradhabrian Arnold Le MD IMG XR CT OCEDURES Final Result * eGFR (08/11/2022 4:38 AM [facility]) eGFR 70 mL/min/1. 73 m2 [facility] Comment: Interpretive Data Reference Interval Normal ?>/= [...] interpretive data was last reviewed 2021. Blood 08/11/2022 4:38 AM [facility] 08/11/2022 4:52 AM [facility] us Wilfredo Jean-Baptiste MD LAB BLOOD ORDERABLES Final R esult [facility] [address] [facility] [place] [address] * Phosphorus (08/11/2022 4:38 AM [facility]) Phosphorus, pl 3.2 2.3 - 4.5 mg/dL [facility] Blood 08/11/2022 4:38 AM [facility] 08/11/2022 4:52 AM [facility] Wilfredo Jean-Baptiste MD LAB BLOOD ORDERABLES Final R esult Performing Organization Address City/State/[facility] Co de Phone Number [facility] [address] [place] [address] * Magnesium (08/11/2022 4:38 AM [facility]) [facility] Magnesium 2.3 1.4 - 2.5 mg/dL [facility] Blood 08/11/2022 4:38 AM [facility] 08/11/2022 4:52 AM [facility] Wilfredo Jean-Baptiste MD LAB BLOOD ORDERABLES Final R [facility] Performing Organization Address [facility] Co de Phone Number [address] [place] [address] * Calcium, ionized (08/11/2022 4:38 AM [facility]) [facility] Calcium, Ionized 4.96 4.50 - 5.20 mg/dL [facility] Blood 08/11/2022 4:38 AM [facility] 08/11/2022 4:52 AM [facility] Wilfredo Jean-Baptiste MD LAB BLOOD ORDERABLES Final R [facility] Performing Organization Address City/[facility] Co de Phone Number [address] [place] [address] * (ABNORMAL) Basic metabolic panel (08/11/2022 4:38 AM [facility]) [facility] Sodium 142 135 - 145 mmol/L [facility] Potassium, pl 3.9 3.3 - 4.9 mmol/L [facility] Chloride 108 97 - 110 mmol/L [facility] CO2 26 22 - 32 mmol/L [facility] Anion gap 8 2 - 15 mmol/L [facility] BUN 22 8 - 25 mg/dL [facility] Creatinine 1.10 0.80 - 1.30 mg/dL [facility] Glucose 93 70 - 199 mg/dL [facility] Comment: Interpretive Data Fasting glucose >/= 126 [...] interpretive data was last revised 2022. Calcium 8.3(L) 8.5 - 10.3 mg/dL [facility] Blood 08/11/2022 4:38 AM [facility] 08/11/2022 4:52 AM [facility] Wilfredo Jean-Baptiste MD LAB BLOOD ORDERABLES Final R esult [facility] [address] [facility] Department [place] [address] * (ABNORMAL) CBC without differential (08/11/2022 4:38 AM [facility]) WBC 6.1 3.8 - 9.9 K/cumm [facility] Hgb 13.8 13.0 - 17.5 g/dL [facility] Hct 44.5 38.9 - 50.3 % [facility] Plt 171 150 - 400 K/cumm [facility] MPV 11.2 9.1 - 12.3 fL [facility] RBC 5.15 4.30 - 5.80 M/cumm [facility] MCV 86.4 81.3 - 96.4 fL [facility] MCH 26.8(L) 27.1 - 33.3 pg [facility] MCHC 31.0(L) 32.3 - 35.7 g/dL [facility] RDW CV 14.2 11.1 - 14.9 % [facility] RDW SD 44.7 35.7 - 48.1 fL [facility] NRBC abs 0.00 0.00 - 0.01 K/cumm [facility] Blood 08/11/2022 4:38 AM [facility] 08/11/2022 4:52 AM [facility] us Wilfredo Jean-Baptiste MD LAB BLOOD ORDERABLES Final R esult Performing Organization Address [facility] Co de Phone Number [facility] [address] [facility] [place] [address] * eGFR (08/10/2022 2:40 AM [facility]) eGFR 45 mL/min/1. 73 m2 [facility] Comment: Interpretive Data Reference Interval Normal ?>/= [...] interpretive data was last reviewed 2021. Blood 08/10/2022 2:40 AM [facility] 08/10/2022 4:14 AM [facility] us Wilfredo Jean-Baptiste MD LAB BLOOD ORDERABLES Final R esult Performing Organization Address City/[facility]/ZIP Co de Phone Number [address] [address] * Phosphorus (08/10/2022 2:40 AM [facility]) Phosphorus, pl 3.4 2.3 - 4.5 mg/dL [facility] Blood 08/10/2022 2:40 AM [facility] 08/10/2022 4:14 AM [facility] Wilfredo Jean-Baptiste MD LAB BLOOD ORDERABLES Final R esult [address] [address] * Magnesium (08/10/2022 2:40 AM [facility]) Magnesium 2.4 1.4 - 2.5 mg/dL [facility] Blood 08/10/2022 2:40 AM [facility] 08/10/2022 4:14 AM [facility] Wilfredo Jean-Baptiste MD LAB BLOOD ORDERABLES Final R esult [address] [address] * Calcium, ionized (08/10/2022 2:40 AM [facility]) Pathologist [facility] [place] Calcium, Ionized 4.86 4.50 - 5.20 mg/dL [facility] Blood 08/10/2022 2:40 AM [facility] 08/10/2022 4:14 AM [facility] Wilfredo Jean-Baptiste MD LAB BLOOD ORDERABLES Final R esult [address] [address] * (ABNORMAL) Basic metabolic panel (08/10/2022 2:40 AM [facility]) Sodium 140 135 - 145 mmol/L [facility] Potassium, pl 4.3 3.3 - 4.9 mmol/L [facility] Chloride 108 97 - 110 mmol/L [facility] CO2 21(L) 22 - 32 mmol/L [facility] Anion gap 11 2 - 15 mmol/L [facility] BUN 29(H) 8 - 25 mg/dL [facility] Creatinine 1.60(H) 0.80 - 1.30 mg/dL [facility] Glucose 94 70 - 199 mg/dL [facility] Comment: Interpretive Data Fasting glucose >/= 126 [...] interpretive data was last revised 2022. Calcium 8.5 8.5 - 10.3 mg/dL [facility] Blood 08/10/2022 2:40 AM [facility] 08/10/2022 4:14 AM [facility] Wilfredo Jean-Baptiste MD LAB BLOOD ORDERABLES Final R esult [facility] [address] [facility] Department of Laboratories [place], [place] [id number] * (ABNORMAL) CBC without differential (08/10/2022 2:40 AM [facility]) Pathologist [facility] [place] WBC 6.2 3.8 - 9.9 K/cumm [facility] Hgb 13.1 13.0 - 17.5 g/dL [facility] Hct 40.5 38.9 - 50.3 % [facility] Plt 184 150 - 400 K/cumm [facility] MPV 12.4(H) 9.1 - 12.3 fL [facility] RBC 4.76 4.30 - 5.80 M/cumm [facility] MCV 85.1 81.3 - 96.4 fL [facility] MCH 27.5 27.1 - 33.3 pg [facility] MCHC 32.3 32.3 - 35.7 g/dL [facility] RDW CV 14.3 11.1 - 14.9 % [facility] RDW SD 43.6 35.7 - 48.1 fL [facility] NRBC abs 0.00 0.00 - 0.01 K/cumm [facility] Blood 08/10/2022 2:40 AM [facility] 08/10/2022 4:15 AM [facility] Wilfredo Jean-Baptiste MD LAB BLOOD ORDERABLES Final R esult Performing Organization Address [facility] de Phone Number [address] [address] * MRSA Only (Staphylococcs aureus) PCR Nasal (08/09/2022 6:25 PM [facility]) [facility] PCR Scrn, Methicillin resistant Staphylococcus aureus (MRSA) Not Detected Not Detected [facility] Comment: Testing performed using Nucleic Acid Amplification with the [employer] Xpert MRSA Assay. This assay detects DNA from SCCmec strains of Staphylococcus aureus using Real- Time PCR and has been cleared by the FDA. Performance characteristics have been verified by the [facility]. Nasal 08/09/2022 6:25 PM [facility] 08/09/2022 6:31 PM [facility] Hi wright MD LAB MICROBIOLOGY - GENERAL ORDERABLES Final Result Performing Organization Address [facility] de Phone Number [address] [place] [address] * eGFR (08/09/2022 6:22 AM [facility]) [facility] eGFR 63 mL/min/1. 73 m2 [facility] Comment: Interpretive Data Reference Interval Normal ?>/= [...] interpretive data was last reviewed 2021. Blood 08/09/2022 6:22 AM [facility] 08/09/2022 6:58 AM [facility] Wilfredo Jean-Baptiste MD LAB BLOOD ORDERABLES Final R esult Performing Organization Address [facility] Co de Phone Number [address] [place] [address] * Phosphorus (08/09/2022 6:22 AM [facility]) Phosphorus, pl 2.6 2.3 - 4.5 mg/dL [facility] Blood 08/09/2022 6:22 AM [facility] 08/09/2022 6:58 AM [facility] Wilfredo Jean-Baptiste MD LAB BLOOD ORDERABLES Final R esult Performing Organization Address [facility] Co de Phone Number [address] [place] [address] * Magnesium (08/09/2022 6:22 AM [facility]) Magnesium 2.2 1.4 - 2.5 mg/dL [facility] Blood 08/09/2022 6:22 AM [facility] 08/09/2022 6:58 AM [facility] Wilfredo Jean-Baptiste MD LAB BLOOD ORDERABLES Final R esult Performing Organization Address City/[facility] Co de Phone Number [address] [address] * Calcium, ionized (08/09/2022 6:22 AM [facility]) Pathologist [facility] [place] Calcium, Ionized 4.98 4.50 - 5.20 mg/dL [facility] Blood 08/09/2022 6:22 AM [facility] 08/09/2022 6:58 AM [facility] Wilfredo Jean-Baptiste MD LAB BLOOD ORDERABLES Final R esult Performing Organization Address [facility] de Phone Number [address] [address] * Basic metabolic panel (08/09/2022 6:22 AM [facility]) [facility] Sodium 140 135 - 145 mmol/L [facility] Potassium, pl 4.1 3.3 - 4.9 mmol/L [facility] Chloride 108 97 - 110 mmol/L [facility] CO2 22 22 - 32 mmol/L [facility] Anion gap 10 2 - 15 mmol/L [facility] BUN 19 8 - 25 mg/dL [facility] Creatinine 1.20 0.80 - 1.30 mg/dL [facility] Glucose 99 70 - 199 mg/dL [facility] Comment: Interpretive Data Fasting glucose >/= 126 [...] interpretive data was last revised 2022. Calcium 8.6 8.5 - 10.3 mg/dL [facility] Blood 08/09/2022 6:22 AM [facility] 08/09/2022 6:58 AM [facility] Wilfredo Jean-Baptiste MD LAB BLOOD ORDERABLES Final R esult Performing Organization Address City/[facility]/ZIP Co de Phone Number [address] [place] [address] * (ABNORMAL) CBC without differential (08/09/2022 6:22 AM [facility]) WBC 5.5 3.8 - 9.9 K/cumm [facility] Hgb 12.7(L) 13.0 - 17.5 g/dL [facility] Hct 39.9 38.9 - 50.3 % [facility] Plt 167 150 - 400 K/cumm [facility] MPV 12.0 9.1 - 12.3 fL [facility] RBC 4.69 4.30 - 5.80 M/cumm [facility] MCV 85.1 81.3 - 96.4 fL [facility] MCH 27.1 27.1 - 33.3 pg [facility] MCHC 31.8(L) 32.3 - 35.7 g/dL [facility] RDW CV 14.2 11.1 - 14.9 % [facility] RDW SD 43.3 35.7 - 48.1 fL [facility] NRBC abs 0.00 0.00 - 0.01 K/cumm [facility] Blood 08/09/2022 6:22 AM [facility] 08/09/2022 6:58 AM [facility] Wilfredo Jean-Baptiste MD LAB BLOOD ORDERABLES Final R esult Performing Organization Address City/[facility]/ZIP Co de Phone Number [address] [place] [address] * Legionella antigen Urine (08/09/2022 2:40 AM [facility]) Legionella Ag Negative Negative [facility] Comment: Interpretive Data This test detects only Legionella pneumophila serogroup 1 antigen. Testing performed by [facility] Microbiology [facility] ([phone]). Current interpretive data was last revised on 2019. Testing performed by: [facility], [address] [place] [address] Urine 08/09/2022 2:40 AM [facility] 08/09/2022 7:32 AM [facility] Stalin Haro MD LAB MICROBIOLOGY - GE NERAL ORDERABLES Final Result [address] [place] [address] * Strep pneumoniae antigen, urine Urine (08/09/2022 2:40 AM [facility]) S. pneumoniae Ag Negative Negative [facility] Urine 08/09/2022 2:40 AM [facility] 08/09/2022 2:48 AM [facility] Stalin Haro MD LAB MICROBIOLOGY - GE NERAL ORDERABLES Final Result Performing Organization Address City/[facility]/ZIP Co de Phone Number [address] [place] [address] * Procalcitonin (08/08/2022 7:44 PM [facility]) Procalcitonin 0.09 0.02 - 0.80 ng/mL [facility] Blood 08/08/2022 7:44 PM [facility] 08/08/2022 7:51 PM [facility] Stalin Haro MD LAB BLOOD ORDERABLES Final Result Performing Organization Address City/[facility]/ZIP Co de Phone Number [address] [place] [address] * Blood culture Blood (08/08/2022 7:44 PM [facility]) Report Final Report: No growth [facility] Comment:Testing performed by : [facility], [address] [facility], [place]., [address] Blood 08/08/2022 7:44 PM [facility] 08/08/2022 9:44 PM [facility] Narrative [facility] - 08/13/2022 7:00 AM [facility] From a different site than #1. 1. ?Blood cultures are incubated for 4 days on a continuously monitored blood culture system. The first report of a negative culture is issued within 24 hours of receipt of the specimen in the laboratory. 2. ?Positive culture results are reported as soon as they are detected. 3. ?The most important factor for detection of microbes in the setting of bloodstream infection is the volume of blood submitted for culture. Failure to collect an optimal blood volume can result in false negative blood cultures. For pediatric patients, the recommended blood volume to collect is 1 mL of blood per year of patient age (up to 20 mL) per blood culture set. For adult patients, 20 mL of blood, divided equally between aerobic and anaerobic blood culture bottles, is recommended for each blood culture set. 4. ?For blood cultures with Gram-positive cocci, a rapid molecular test for organism identification may be performed using the [employer] Gram-Positive Blood Culture Assay. This assay detects microbial DNA in positive blood culture broth via hybridization of target DNA to capture oligonucleotides on a microarray. This assay has been cleared by the [place] Food and Drug Administration and its performance characteristics have been verified by the [facility]. 5. ?For questions about this culture, contact the Microbiology Laboratory at [phone]. Interpretive data was last revised on 2019. us Stalin Haro MD LAB MICROBIOLOGY - [facility] ORDERABLES Final Result [facility] [address] [facility] [place] [address] * (ABNORMAL) Mycoplasma pneumoniae antibody, IgG and IgM (08/08/2022 7:44 PM [facility]) M. pneumoniae IgG Positive(A) Negative [facility] M. pneumoniae IgM Negative Negative [facility] M. pneumoniae interp See Footnote [facility] Comment: RESULT: Results suggest past exposure. ADDITIONAL INFORMATION This test has been modified from the pediatric nurse practitioner's instructions. Its performance characteristics were determined by [facility] in a manner consistent with CLIA requirements. This test has not been cleared or approved by the U.S. Food and Drug Administration. Test Performed by: [facility] - [facility] [address] [id number] [employer] Supervisor: Wade Paul M.D. Ph.D.; CLIA# [id number] Blood 08/08/2022 7:44 PM [facility] 08/08/2022 7:51 PM SKIVER WELT END Stalin Haro MD LAB MICROBIOLOGY - [facility] ORDERABLES Final Result [facility] [address] [facility] [place] [address] * Blood culture Blood (08/08/2022 7:42 PM SKIVER WELT END) Report Final Report: No growth [facility] Comment:Testing performed by : [facility], [address] [facility] [place]., [address] Blood 08/08/2022 7:42 PM SKIVER WELT END 08/09/2022 1:51 AM SKIVER WELT END Narrative [facility] - 08/13/2022 7:00 AM SK[facility]ELT END 1. ?Blood cultures are incubated for 4 days on a continuously monitored blood culture system. The first report of a negative culture is issued within 24 hours of receipt of the specimen in the laboratory. 2. ?Positive culture results are reported as soon as they are detected. 3. ?The most important factor for detection of microbes in the setting of bloodstream infection is the volume of blood submitted for culture. Failure to collect an optimal blood volume can result in false negative blood cultures. For pediatric patients, the recommended blood volume to collect is 1 mL of blood per year of patient age (up to 20 mL) per blood culture set. For adult patients, 20 mL of blood, divided equally between aerobic and anaerobic blood culture bottles, is recommended for each blood culture set. 4. ?For blood cultures with Gram-positive cocci, a rapid molecular test for organism identification may be performed using the [employer] Gram-Positive Blood Culture Assay. This assay detects microbial DNA in positive blood culture broth via hybridization of target DNA to capture oligonucleotides on a microarray. This assay has been cleared by the [place] Food and Drug Administration and its performance characteristics have been verified by the [facility] Microbiology Laboratory. 5. ?For questions about this culture, contact the Microbiology Laboratory at [phone]. Interpretive data was last revised on 2019. Stalin Haro MD LAB MICROBIOLOGY - [facility] ORDERABLES Final Result [facility] [address] [facility] Department [place] [address] * XR Chest 1 View (08/08/2022 5:25 PM SKIVER WELT END) Anatomical Region Laterality Modality Body, Chest N/A Computed Radiogr aphy 08/08/2022 6:00 PM SKIVER WELT END Narrative 08/08/2022 6:04 PM SKIVER WELT END EXAM DESCRIPTION: ?? XR CHEST 1 VIEW REASON FOR STUDY: ?? Shortness of breath ?? Patient stated he has SOB. COVID +. ? TECHNIQUE: ?? AP ??radiographic view of the chest acquired. COMPARISON: ?? 08/06/2022 FINDINGS: New opacity in the right lower lung concerning for pneumonia. ??There is no pneumothorax, pulmonary edema, or pleural effusion. ??Mediastinal contours are unchanged given differences in technique. ??The aorta is tortuous with atherosclerotic calcifications. IMPRESSION: ?? New opacity in the right lower lung concerning for pneumonia. ?? Recommend follow-up radiograph after treatment to document resolution. THIS IS AN ELECTRONICALLY VERIFIED FINAL REPORT 08/08/2022 6:04 PM - Electronically signed by ??Angeline CASTILLO D: ??08/08/2022 6:04 PM T: Report ID: [id number] Reading Location: ??[id number] Procedure Note Angeline Fernando MD - 08/08/2022 EXAM DESCRIPTION: XR CHEST 1 VIEW REASON FOR STUDY: Shortness of breath Patient stated he has SOB. COVID +. TECHNIQUE: AP radiographic view of the chest acquired. COMPARISON: 08/06/2022 FINDINGS: New opacity in the right lower lung concerning for pneumonia.There is no pneumothorax, pulmonary edema, or pleural effusion. Mediastinal contours are unchanged given differences in technique. The aorta istortuous with atherosclerotic calcifications. IMPRESSION: New opacity in the right lower lung concerning forpneumonia. Recommend follow-up radiograph after treatment to document resolution. THIS IS AN ELECTRONICALLY VERIFIED FINAL REPORT 08/08/2022 6:04 PM - Electronically signed by Angeline Fernando M.D. QX T: Report ID: [id number] Reading Location: [id number] Stalin Haro MD IMG XR PROCEDURES Fin al Result * eGFR (08/08/2022 5:35 AM SKIVER WELT END) eGFR 63 mL/min/1. 73 m2 [facility] Comment: Interpretive Data Reference Interval Normal ?>/= [...] interpretive data was last reviewed 2021. Blood 08/08/2022 5:35 AM [facility]ELT END 08/08/2022 5:50 AM SKIVER WELT END Wilfredo Jean-Baptiste MD LAB BLOOD ORDERABLES Final R esult Performing Organization Address [facility] Co de Phone Number [address] [place] [address] * Phosphorus (08/08/2022 5:35 AM SKIVER WELT END) Phosphorus, pl 2.4 2.3 - 4.5 mg/dL [facility] Blood 08/08/2022 5:35 AM [facility]T END 08/08/2022 5:50 AM SKIVER WELT END Wilfredo Jean-Baptiste MD LAB BLOOD ORDERABLES Final R esult Performing Organization Address [facility] Co de Phone Number [address] [address] * Magnesium (08/08/2022 5:35 AM SK[facility] WELT END) Magnesium 2.1 1.4 - 2.5 mg/dL [facility] Blood 08/08/2022 5:35 AM [facility] WELT END 08/08/2022 5:50 AM SKIVER WELT END Wilfredo Jean-Baptiste MD LAB BLOOD ORDERABLES Final R esult Performing Organization Address [facility] Co de Phone Number [address] [place] [address] * Calcium, ionized (08/08/2022 5:35 AM SKIVER WELT END) Calcium, Ionized 5.05 4.50 - 5.20 mg/dL [facility] Blood 08/08/2022 5:35 AM [facility]T END 08/08/2022 5:50 AM SKIVER WELT END Wilfredo Jean-Baptiste MD LAB BLOOD ORDERABLES Final R esult Performing Organization Address [facility] Co de Phone Number [address] [facility] [place] [address] * Basic metabolic panel (08/08/2022 5:35 AM SKIVER WELT END) Pathologist [facility] [place] Sodium 141 135 - 145 mmol/L [facility] Potassium, pl 3.9 3.3 - 4.9 mmol/L [facility] Chloride 106 97 - 110 mmol/L [facility] CO2 25 22 - 32 mmol/L [facility] Anion gap 6 2 - 15 mmol/L [facility] BUN 21 8 - 25 mg/dL [facility] Creatinine 1.20 0.80 - 1.30 mg/dL [facility] Glucose 101 70 - 199 mg/dL [facility] Comment: Interpretive Data Fasting glucose >/= 126 [...] 2022. Calcium 8.9 8.5 - 10.3 mg/dL [facility] Blood 08/08/2022 5:35 AM [facility]ELT END 08/08/2022 5:50 AM [facility]ELT END Wilfredo Jean-Baptiste MD LAB BLOOD ORDERABLES Final R esult Performing Organization Address City/[facility]/ZIP Co de Phone Number [address] [place] [address] * (ABNORMAL) CBC without differential (08/08/2022 5:35 AM SKIVER WELT END) Pathologist [facility] [place] WBC 4.6 3.8 - 9.9 K/cumm [facility] Hgb 13.1 13.0 - 17.5 g/dL [facility] Hct 40.9 38.9 - 50.3 % [facility] Plt 163 150 - 400 K/cumm [facility] MPV 11.7 9.1 - 12.3 fL [facility] RBC 4.81 4.30 - 5.80 M/cumm [facility] MCV 85.0 81.3 - 96.4 fL [facility] MCH 27.2 27.1 - 33.3 pg [facility] MCHC 32.0(L) 32.3 - 35.7 g/dL [facility] RDW CV 14.0 11.1 - 14.9 % [facility] RDW SD 43.4 35.7 - 48.1 fL [facility] NRBC abs 0.00 0.00 - 0.01 K/cumm [facility] Blood 08/08/2022 5:35 AM [facility]ELT END 08/08/2022 5:50 AM SKIVER WELT END us Wilfredo Jean-Baptiste MD LAB BLOOD ORDERABLES Final R esult [facility] [address] [facility] Department [place] [address] * ECG 12 lead (08/07/2022 1:31 PM SKIVER WELT END) [facility] Ventricular Rate EKG/Min 76 BPM [facility] Atrial Rate 76 BPM [facility] CT-Interval (MSEC) 300 ms [facility] QRS-Interval (MSEC) 122 ms [facility] QT-Interval (MSEC) 400 ms [facility] QTc 450 ms [facility] P Nebo -2 degrees [facility] R Nebo -39 degrees [facility] T Nebo 105 degrees [facility] Diagnosis Sinus rhythm with 1st degree A-V block Occasional Premature ventricular complexes Left axis deviation Intraventricula r conduction defect ST & T wave abnormality, consider lateral ischemia Abnormal ECG When compared with ECG of 06-AUG-2022 05:34, Sinus rhythm has replaced Atrial fibrillation QT has shortened [facility] 08/07/2022 1:31 PM SK[facility]ELT END 08/07/2022 9:11 PM SKIVER WELT END us Ross Galindo MD ECG ORDERABLES Final Result [facility] * eGFR (08/07/2022 5:48 AM SKIVER WELT END) Pathologist [facility] [place] eGFR 63 mL/min/1. 73 m2 [facility] Comment: Interpretive Data Reference Interval Normal ?>/= [...] interpretive data was last reviewed 2021. Blood 08/07/2022 5:48 AM [facility]ELT END 08/07/2022 6:05 AM SKIVER WELT END us Wilfredo Jean-Baptiste MD LAB BLOOD ORDERABLES Final R esult Performing Organization Address City/[facility]/ZIP Co de Phone Number [facility] [address] [facility] Department [place] [address] * Differential, auto (08/07/2022 5:48 AM SKIVER WELT END) Neutrophil abs 2.5 1.7 - 6.5 K/cumm [facility] Imm gran abs 0.0 0.0 - 0.1 K/cumm [facility] Lymphocyte abs 1.3 0.8 - 3.3 K/cumm [facility] Monocyte abs 0.4 0.2 - 0.8 K/cumm [facility] Eosinophil abs 0.3 0.0 - 0.5 K/cumm [facility] Basophil abs 0.1 0.0 - 0.1 K/cumm [facility] Neutrophil pct 55.4 % [facility] Comment: Interpretive Data Percent cell count reference ranges are not reported, since discordance with absolute values may lead to misinterpretation of CBC data. Current Interpretive Data was last revised on 2017. Imm gran pct 0.0 % [facility] Comment: Interpretive Data Percent cell count reference ranges are not reported, since discordance with absolute values may lead to misinterpretation of CBC data. Current Interpretive Data was last revised on 2017. Lymphocyte pct 28.5 % [facility] Comment: Interpretive Data Percent cell count reference ranges are not reported, since discordance with absolute values may lead to misinterpretation of CBC data. Current Interpretive Data was last revised on 2017. Monocyte pct 9.4 % [facility] Comment: Interpretive Data Percent cell count reference ranges are not reported, since discordance with absolute values may lead to misinterpretation of CBC data. Current Interpretive Data was last revised on 2017. Eosinophil pct 5.6 % [facility] Comment: Interpretive Data Percent cell count reference ranges are not reported, since discordance with absolute values may lead to misinterpretation of CBC data. Current Interpretive Data was last revised on 2017. Basophil pct 1.1 % [facility] Comment: Interpretive Data Percent cell count reference ranges are not reported, since discordance with absolute values may lead to misinterpretation of CBC data. Current Interpretive Data was last revised on 2017. Blood 08/07/2022 5:48 AM [facility] 08/07/2022 6:04 AM SKIVER WELT END us Hatim A. Josie MD LAB BLOOD ORDERABLES Final R esult Performing Organization Address City/[facility]/ZIP Co de Phone Number [address] [place] [address] * Phosphorus (08/07/2022 5:48 AM SK[facility] WELT END) Phosphorus, pl 2.7 2.3 - 4.5 mg/dL [facility] Blood 08/07/2022 5:48 AM [facility] END 08/07/2022 6:05 AM [facility]ELT END Wilfredo Jean-Baptiste MD LAB BLOOD ORDERABLES Final R esult Performing Organization Address [facility] Co de Phone Number [address] [place] [address] * Magnesium (08/07/2022 5:48 AM SKIVER WELT END) Pathologist [facility] [place] Magnesium 2.1 1.4 - 2.5 mg/dL [facility] Blood 08/07/2022 5:48 AM [facility]ELT END 08/07/2022 6:05 AM [facility]ELT END Wilfredo Jean-Baptiste MD LAB BLOOD ORDERABLES Final R esult Performing Organization Address [facility] Co de Phone Number [address] [place] [address] * Calcium, ionized (08/07/2022 5:48 AM SKIVER WELT END) Pathologist [facility] [place] Calcium, Ionized 5.05 4.50 - 5.20 mg/dL [facility] Blood 08/07/2022 5:48 AM [facility] WELT END 08/07/2022 6:05 AM SKIVER WELT END Wilfredo Jean-Baptiste MD LAB BLOOD ORDERABLES Final R esult Performing Organization Address City[facility]/ZIP Co de Phone Number [address] [place] [address] * (ABNORMAL) Basic metabolic panel (08/07/2022 5:48 AM SKIVER WELT END) [facility] Sodium 143 135 - 145 mmol/L [facility] Potassium, pl 3.7 3.3 - 4.9 mmol/L [facility] Chloride 111(H) 97 - 110 mmol/L [facility] CO2 22 22 - 32 mmol/L [facility] Anion gap 10 2 - 15 mmol/L [facility] BUN 24 8 - 25 mg/dL [facility] Creatinine 1.20 0.80 - 1.30 mg/dL [facility] Glucose 94 70 - 199 mg/dL [facility] Comment: Interpretive Data Fasting glucose >/= 126 [...] interpretive data was last revised 2022. Calcium 8.3(L) 8.5 - 10.3 mg/dL [facility] Blood 08/07/2022 5:48 AM [facility] WELT END 08/07/2022 6:05 AM SKIVER WELT END us Wilfredo Jean-Baptiste MD LAB BLOOD ORDERABLES Final R esult [facility] [address] [facility] Department [place] [address] * (ABNORMAL) CBC with auto differential (08/07/2022 5:48 AM SKIVER WELT END) [facility] WBC 4.5 3.8 - 9.9 K/cumm [facility] Hgb 13.0 13.0 - 17.5 g/dL [facility] Hct 40.4 38.9 - 50.3 % [facility] Plt 142(L) 150 - 400 K/cumm [facility] MPV 11.3 9.1 - 12.3 fL [facility] RBC 4.75 4.30 - 5.80 M/cumm [facility] MCV 85.1 81.3 - 96.4 fL [facility] MCH 27.4 27.1 - 33.3 pg [facility] MCHC 32.2(L) 32.3 - 35.7 g/dL [facility] CV 14.2 11.1 - 14.9 % [facility] R[facility] SD 44.0 35.7 - 48.1 fL [facility] NRBC abs 0.00 0.00 - 0.01 K/cumm [facility] Blood 08/07/2022 5:48 AM [facility]ELT END 08/07/2022 6:04 AM SKIVER WELT END us Ross Galindo MD LAB BLOOD ORDERABLES Final R esult [facility] [address] [facility] [place] [address] * eGFR (08/07/2022 5:35 AM SKIVER WELT END) eGFR 63 mL/min/1. 73 m2 [facility] Comment: Interpretive Data Reference Interval Normal ?>/= [...] interpretive data was last reviewed 2021. Blood 08/07/2022 5:35 AM [facility]T END 08/07/2022 6:05 AM SKIVER WELT END us Ross Galindo MD LAB BLOOD ORDERABLES [facility] Performing Organization Address [facility] de Phone Number [address] [place] [address] * Magnesium (08/07/2022 5:35 AM SKIVER WELT END) Pathologist [facility] [place] Magnesium 2.0 1.4 - 2.5 mg/dL [facility] Blood 08/07/2022 5:35 AM [facility] WELT END 08/07/2022 6:05 AM SKIVER WELT END us Ross Galindo MD LAB BLOOD ORDERABLES [facility] Performing Organization Address [facility] de Phone Number [address] [address] * (ABNORMAL) Basic metabolic panel (08/07/2022 5:35 AM SKIVER WELT END) Pathologist [facility] [place] Sodium 141 135 - 145 mmol/L [facility] Potassium, pl 3.7 3.3 - 4.9 mmol/L [facility] Chloride 110 97 - 110 mmol/L [facility] CO2 23 22 - 32 mmol/L [facility] Anion gap 8 2 - 15 mmol/L [facility] BUN 24 8 - 25 mg/dL [facility] Creatinine 1.20 0.80 - 1.30 mg/dL [facility] Glucose 93 70 - 199 mg/dL [facility] Comment: Interpretive Data Fasting glucose >/= 126 [...] interpretive data was last revised 2022. Calcium 8.4(L) 8.5 - 10.3 mg/dL [facility] Blood 08/07/2022 5:35 AM SKIVER WELT END 08/07/2022 6:05 AM SKIVER WELT END us Ross Galindo MD LAB BLOOD ORDERABLES Final R esult [facility] [address] [facility] [place] [address] * Critical Care (08/06/2022 3:17 PM SK[facility]ELT END) Narrative Vasyl Aranda MD - 08/06/2022 3:17 PM [facility]IVER [facility]ELT END Ganesh Nicolas NP ? 08/06/2022 ??3:19 PM Critical Care Performed by: Ganesh Nicolas NP Authorized by: Ganesh Nicolas NP CRITICAL CARE: ??Team: ??[facility] ??Shift: ??AM ??Level of Billing: ??Subsequent Hospital Visit Level 3 ??My time spent with this patient was 35 minutes: Critical Provider Statement: I have seen and examined the patient on this day of service. I have reviewed and confirmed the history, physical exam, laboratory, and radiographic data as documented in the ICU note. I have reviewed and discussed my treatment plan with the patient's team and other medical/data quality consultant staff. This time was in addition to and separate from care provided by other practitioners on this day of service. ? Tachy/radha arrhythmic event ??This time was spent by me doing the following: ? Monitoring of heart rhythm ?? I spent time reviewing and interpreting data from bedside monitors, laboratory results, and imaging, I spent time discussing the management of this critically ill patient with consultants and the medical staff and I spent time documenting in the medical record us Ganesh Nicolas NP IN CLINIC/BEDSIDE ORDERABLES Final Result * eGFR (08/06/2022 12:22 PM SKIVER WELT END) [facility] eGFR 78 mL/min/1. 73 m2 [facility] Comment: Interpretive Data Reference Interval Normal ?>/= [...] interpretive data was last reviewed 2021. Blood 08/06/2022 12:2 2 PM [facility]T END 08/06/2022 12:43 PM SKIVER WELT END us Ross Galindo MD LAB BLOOD ORDERABLES Final R esult [facility] [address] [facility] [place] [address] * Creatinine (08/06/2022 12:22 PM SKIVER WELT END) Creatinine 1.00 0.80 - 1.30 mg/dL [facility] Blood 08/06/2022 12:2 2 PM [facility] WELT END 08/06/2022 12:43 PM SKIVER WELT END Narrative [facility] - 08/06/2022 1:08 PM SKIVER WELT END Baseline prior to apixaban initiation. us Ross Galindo MD LAB BLOOD ORDERABLES Final R esult Performing Organization Address [facility] Co de Phone Number [id number] [place] [address] * (ABNORMAL) Protime-INR (08/06/2022 12:22 PM [facility]ELT END) PT 14.9(H) 12.0 - 14.6 sec [facility] Comment:Ref Range High INR 1.2 0.9 - 1.2 [facility] Comment: Ref Range High Interpretive data Oral anticoagulant therapeutic ranges: Venous thromboembolism prophylaxis or treatment: 2.0-3.0 CARDIOLOGY Standard range: 2.0-3.0 High-intensity range: 2.5-3.5 Refer to indication-specific guidelines for appropriate target ranges for prosthetic heart valve replacement. Current interpretive data was last revised on 2019. Blood 08/06/2022 12:2 2 PM [facility] WELT END 08/06/2022 12:43 PM SKIVER WELT END Narrative [facility] - 08/06/2022 1:37 PM SKIVER WELT END Baseline prior to apixaban initiation. us Ross Galindo MD LAB BLOOD ORDERABLES Final R [facility] Performing Organization Address [facility] de Phone Number [address] [place] [address] * Magnesium (08/06/2022 12:22 PM SKIVER WELT END) Magnesium 2.1 1.4 - 2.5 mg/dL [facility] Blood 08/06/2022 12:2 2 PM SKIVER WELT END 08/06/2022 12:43 PM SKIVER WELT END Narrative [facility] - 08/06/2022 1:18 PM SKIVER WELT END Run off this morning's labs done around 12:30 a.m. us Ross Galindo MD LAB BLOOD ORDERABLES Final R esult Performing Organization Address [facility] Co de Phone Number [address] [place] [address] * TSH reflex to free T4 (08/06/2022 12:22 PM SKIVER WELT END) TSH 1.68 0.30 - 4.20 mcIUnit/mL [facility] Blood 08/06/2022 12:2 2 PM SKIVER WELT END 08/06/2022 12:43 PM SKIVER WELT END Narrative [facility] - 08/06/2022 1:18 PM SKIVER WELT END Please run off of labs done around 12:30 a.m. us Ross Galindo MD LAB BLOOD ORDERABLES Final R esult [facility] [address] [facility] [place] [address] * TRANSTHORACIC ECHO (TTE) LIMITED/FOLLOW UP W LTD DOPPLER/CF WO CONTRAST (08/06/2022 11:17 AM [facility] END) Anatomical Region Laterality Modality Ultrasound 08/06/2022 11:1 7 AM [facility] END Narrative 08/06/2022 3:43 PM [facility]T END ? Adult Echocardiogram + ----- + :Name: VERNA ZUNIGA ?? Study Date: 08/06/2022 ?Status: [facility] ? : : ?Patient Location: [facility] 2 ICU^[id number]^Height: 67 in ? : : ?Weight: 148 lbBP: 157/102 mmHg: :: 1945 ? Gender: Male ?BSA: 1.8 m2 ? : :Reason For Study: heart failure with reduced ejection fraction ?: :Ordering Physician: ? : :JOSIE, HATIM ?: : ?: :Performed By: Amber ? : :Tee, RDCS ?: + ----- + Procedure A two-dimensional transthoracic echocardiogram with color flow and Doppler was performed in limited views only. Images from the parasternal window were difficult to obtain and are suboptimal in quality. COVID PROTOCOL. A two- dimensional transthoracic echocardiogram with color flow and Doppler was performed. Left Ventricle The left ventricle is normal in size. There is normal left ventricular wall thickness. Left ventricular systolic function is normal. Ejection Fraction = 60-65%. The left ventricular wall motion is normal. Right Ventricle The right ventricle is normal size. The right ventricular systolic function is normal. Atria Mild to moderate left atrial enlargement. The right atrium is mildly dilated. Mitral Valve The mitral valve is normal. There is trace mitral regurgitation. Tricuspid Valve The tricuspid valve is normal. There is trace to mild tricuspid regurgitation. Right ventricular systolic pressure is '42' mm/HG. 'Mild' pulmonary hypertension. Aortic Valve Aortic valve sclerosis' mild'. The aortic valve opens well. No aortic stenosis . No aortic regurgitation is present. Pulmonic Valve The pulmonic valve is not well visualized. Great Vessels The aortic root is normal size. IVC not well seen. IVC appears 'dilated' in size. Pericardium There is no pericardial effusion. Diastology E wave seen,no significant A wave noted consistent with atrial fibrillation. Tissue doppler not performed. Interpretation Summary Mild to moderate left atrial enlargement The right atrium is mildly dilated. Left ventricular systolic function is normal. Ejection Fraction = 60-65%. The right ventricle is normal size. The right ventricular systolic function is normal. There is trace to mild tricuspid regurgitation. 'Mild' pulmonary hypertension. Right ventricular systolic pressure is '42' mm/HG. IVC appears 'dilated' in size E wave seen,no significant A wave noted consistent with atrial fibrillation. + + :Measurements with Normals ?: : ?(0.6-1.2 ?LVIDd: ?(3.5-5.7 ?? Ao root diam: ?(2.0-3.7 ?? : :IVSd: 1.0 cmcm) ? 5.0 cm ?cm) ?3.5 cm ? cm) ?: :LVPWd: ?(0.6-1.1 ?LVIDs: ?(3.1-4.6 ?? LA dimension: ?(1.9-4.0 ?? : :1.0 cm ?cm) ? 3.2 cm ?cm) ?4.9 cm ? cm) ?: + + MMode/2D Measurements & Calculations IVSs: 1.5 cm ? LVPWs: 1.4 cmFS: 35.5 % ?% IVS thick: 39.4 % ?EDV(Teich): 118.8 ml ?ESV(Teich): 41.9 ml ? Ao root area: 9.5 cm2 Doppler Measurements & Calculations TR max tommy: 268.0 cm/sec ?RAP systole: 8.0 mmHg TR max P.7 mmHg RVSP(TR): 36.7 mmHg Electronically signed by: Ross Galindo MD 08/06/2022 03:43 PM Procedure Note Ross Galindo MD - 08/06/2022 Adult Echocardiogram + ----- + :Name: VERNA ZUNIGA Study Date: 08/06/2022Status: B : : Patient Location: [address]^[id number]^Height: 67 in : : : 148 lbBP: 157/102 mmHg: :: 1945 Gender: MaleBSA: 1.8 m2 : :Reason For Study: heart failure with reduced ejection fraction: :Ordering Physician:: :ROSS GALINDO: :: :Performed By: Amber: :ALEXEY Oliveira: + ----- + Procedure A two-dimensional transthoracic echocardiogram with color flow and Dopplerwas performed in limited views only. Images from the parasternal window were difficult to obtain and are suboptimal in quality. COVID PROTOCOL. Atwo- dimensional transthoracic echocardiogram with color flow and Doppler was performed. Left Ventricle The left ventricle is normal in size. There is normal left ventricularwall thickness. Left ventricular systolic function is normal. Ejection Fraction= 60-65%. The left ventricular wall motion is normal. Right Ventricle The right ventricle is normal size. The right ventricular systolicfunction is normal. Atria Mild to moderate left atrial enlargement. The right atrium is mildlydilated. Mitral Valve The mitral valve is normal. There is trace mitral regurgitation. Tricuspid Valve The tricuspid valve is normal. There is trace to mild tricuspidregurgitation. Right ventricular systolic pressure is '42' mm/HG. 'Mild' pulmonary hypertension. Aortic Valve Aortic valve sclerosis' mild'. The aortic valve opens well. No aortic stenosis . No aortic regurgitation is present. Pulmonic Valve The pulmonic valve is not well visualized. Great Vessels The aortic root is normal size. IVC not well seen. IVC appears 'dilated'in size. Pericardium There is no pericardial effusion. Diastology E wave seen,no significant A wave noted consistent with atrialfibrillation. Tissue doppler not performed. Interpretation Summary Mild to moderate left atrial enlargement The right atrium is mildly dilated. Left ventricular systolic function is normal. Ejection Fraction = 60-65%. The right ventricle is normal size. The right ventricular systolic function is normal. There is trace to mild tricuspid regurgitation. 'Mild' pulmonary hypertension. Right ventricular systolic pressure is '42' mm/HG. IVC appears 'dilated' in size E wave seen,no significant A wave noted consistent with atrialfibrillation. + + :Measurements with Normals: : (0.6-1.2 LVIDd: (3.5-5.7 Ao root diam:(2.0-3.7 : :IVSd: 1.0 cmcm) 5.0 cm cm) 3.5 cm cm): :LVPWd: (0.6-1.1 LVIDs: (3.1-4.6 LA dimension:(1.9-4.0 : :1.0 cm cm) 3.2 cm cm) 4.9 cm cm): + + MMode/2D Measurements & Calculations IVSs: 1.5 cm LVPWs: 1.4 cmFS: 35.5 % % IVS thick:39.4 % EDV(Teich): 118.8 ml ESV(Teich): 41.9 ml Ao root area: 9.5 cm2 Doppler Measurements & Calculations TR max tommy: 268.0 cm/sec RAP systole: 8.0 mmHg TR max P.7 mmHg RVSP(TR): 36.7 mmHg Electronically signed by: Ross Galindo MD 08/06/2022 03:43 PM us Ross Galindo MD CV ECHO PROCEDURES Final Res ult * POCT glucose (08/06/2022 7:42 AM [facility]) [facility] Signature Glucose, POC 85 70 - 199 mg/dL [facility] Blood 08/06/2022 7:42 AM [facility] 08/06/2022 7:42 AM [facility] us Wilfredo Jean-Baptiste MD LAB POCT ORDERABLES - DEVICE Final Result [facility] [address] [facility] [place] [address] * Troponin T high-sensitivity 6-hour (08/06/2022 6:33 AM [facility]) Trop T hs 22 <=22 ng/L [facility] Comment: Interpretive Data For further hscTnT resources including the diagnostic algorithm and an aid in interpretation, copy and paste this link: https://nrl.testcatalog.org/show/hsTrop Current Interpretive Data last revised 2020. Trop T hs delta -1 ng/L [facility] Trop T hs interp Insignificant [facility] Blood 08/06/2022 6:33 AM [facility] 08/06/2022 6:42 AM [facility] us Юлия CHARLES LAB BLOOD ORDERABLES Final Re sult Performing Organization Address City/State/[facility] Co de Phone Number [facility] [address] [facility] [place] [address] * Critical Care (08/06/2022 5:48 AM [facility]) Narrative Wilfredo Jean-Baptiste MD - 08/06/2022 5:48 AM [facility] Wilfredo Jean-Baptiste MD ? 08/06/2022 ??5:49 AM Critical Care Performed by: Wilfredo Jean-Baptiste MD Authorized by: Wilfredo Jean-Baptiste MD CRITICAL CARE: ??Team: ??[facility] ??Shift: ??PM ??Level of Billing: ??Initial Hospital Visit Level 3 ??My time spent with this patient was 60 minutes: Critical Provider Statement: I have seen and examined the patient on this day of service. I have reviewed and confirmed the history, physical exam, laboratory, and radiographic data as documented in the ICU note. I have reviewed and discussed my treatment plan with the patient's team and other medical/data quality consultant staff. This time was in addition to and separate from care provided by other practitioners on this day of service. ? Tachy/radha arrhythmic event ??This time was spent by me doing the following: ? Serial neurovascular exams ?? I spent time reviewing and interpreting data from bedside monitors, laboratory results, and imaging and I spent time documenting in the medical record Wilfredo Jean-Baptiste MD IN CLINIC/BEDSIDE ORDERABLES Final Result * ECG 12 lead (08/06/2022 5:34 AM [facility]) Pathologist [facility] [place] Ventricular Rate EKG/Min 66 BPM [facility] Atrial Rate 57 BPM [facility] QRS-Interval (MSEC) 118 ms [facility] QT-Interval (MSEC) 448 ms [facility] QTc 469 ms [facility] R Nebo -50 degrees [facility] T Nebo 103 degrees [facility] Diagnosis Atrial fibrillation with PVCs versus aberrancy Left anterior fascicular block Cannot rule out Inferior infarct , age undetermined ST & T wave abnormality, consider lateral ischemia Intraventricular conduction defect Abnormal ECG When compared with ECG of 06-AUG-2022 00:16, Criteria for septal infarction, age indeterminate is no longer seen [facility] 08/06/2022 5:34 AM [facility] 08/06/2022 9:24 PM [facility] Wilfredo Jean-Baptiste MD ECG ORDERABLES Final Result [facility] * (ABNORMAL) Troponin T high-sensitivity 4-hour (08/06/2022 4:45 AM [facility]) Pathologist [facility] [place] Trop T hs 23(H) <=22 ng/L [facility] Comment: Interpretive Data For further hscTnT resources including the diagnostic algorithm and an aid in interpretation, copy and paste this link: https://nrl.testcatalog.org/show/hsTrop Current Interpretive Data last revised 2020. Trop T hs delta 0 ng/L [facility] Trop T hs interp Insignificant [facility] Blood 08/06/2022 4:45 AM [facility] 08/06/2022 4:51 AM [facility] Юлия CHARLES LAB BLOOD ORDERABLES Final Re sult [facility] [address] [place] [address] [place] [address] * CT CRITICAL CARE ILL/INJURED PATIENT INIT 30-74 MIN (08/06/2022 4:18 AM [facility]) Narrative Mario Small DO - 08/06/2022 4:18 AM [facility] Mario Small DO ? 08/06/2022 ??4:19 AM Critical Care Performed by: Mario Small DO Authorized by: Mario Small DO Critical care provider statement: As reflected in the history, physical exam, orders, notes, and/or MDM, I was personally present while the patient was critically ill and provided critical care services for 45 minutes, excluding time involved in separately billable procedures. ??Critical care was necessary to treat or prevent imminent or life-threatening deterioration of the following condition(s): ?? unstable vital signs ?? tachy/radha arrhythmic event ??Critical care was time spent by me providing the following: ? continuous telemetry and continuous pulse oximetry ?? initiation and active titration of vasoactive medications ?? I ordered and reviewed test results and/or imaging studies. I provided emergent necessary critical care medicine services to this patient. I spent time discussing the management of this critically ill patient with consultants and the medical staff. I spent time discussing the management and therapeutic options for this critically ill patient with the patient themselves or with the appropriate designated surrogate decision-maker. I spent time documenting in the medical record. I admitted this patient to an Intensive Care unit (ICU) and discussed management with the admitting team. I admitted this patient to a continuous cardiac monitored bed. Mario Small DO IN CLINIC/BEDSIDE [facility]SA[facility] Final Result * (ABNORMAL) Troponin T high-sensitivity 2-hour (08/06/2022 2:36 AM [facility]) Trop T hs 24(H) <=22 ng/L [facility] Comment: Interpretive Data For further hscTnT resources including the diagnostic algorithm and an aid in interpretation, copy and paste this link: https://nrl.testcatalog.org/show/hsTrop Current Interpretive Data last revised 2020. Trop T hs delta 1 ng/L [facility] Trop T hs interp Insignificant [facility] Blood 08/06/2022 2:36 AM [facility] 08/06/2022 2:51 AM [facility] us Юлия CHARLES LAB BLOOD ORDERABLES Final Re sult [facility] [address] [facility] [place] [address] * eGFR (08/06/2022 12:32 AM [facility]) eGFR 63 mL/min/1. 73 m2 [facility] Comment: Interpretive Data Reference Interval Normal ?>/= [...] interpretive data was last reviewed 2021. Blood 08/06/2022 12:3 2 AM [facility] 08/06/2022 12:36 AM [facility] us Юлия CHARLES LAB BLOOD ORDERABLES Final Re sult [facility] [address] [facility] [place] [address] * Differential, auto (08/06/2022 12:32 AM [facility]) Neutrophil abs 2.1 1.7 - 6.5 K/cumm [facility] Imm gran abs 0.0 0.0 - 0.1 K/cumm [facility] Lymphocyte abs 1.6 0.8 - 3.3 K/cumm [facility] Monocyte abs 0.8 0.2 - 0.8 K/cumm [facility] Eosinophil abs 0.3 0.0 - 0.5 K/cumm [facility] Basophil abs 0.1 0.0 - 0.1 K/cumm [facility] Neutrophil pct 43.3 % [facility] Comment: Interpretive Data Percent cell count reference ranges are not reported, since discordance with absolute values may lead to misinterpretation of CBC data. Current Interpretive Data was last revised on 2017. Imm gran pct 0.2 % [facility] Comment: Interpretive Data Percent cell count reference ranges are not reported, since discordance with absolute values may lead to misinterpretation of CBC data. Current Interpretive Data was last revised on 2017. Lymphocyte pct 32.5 % [facility] Comment: Interpretive Data Percent cell count reference ranges are not reported, since discordance with absolute values may lead to misinterpretation of CBC data. Current Interpretive Data was last revised on 2017. Monocyte pct 15.9 % [facility] Comment: Interpretive Data Percent cell count reference ranges are not reported, since discordance with absolute values may lead to misinterpretation of CBC data. Current Interpretive Data was last revised on 2017. Eosinophil pct 6.5 % [facility] Comment: Interpretive Data Percent cell count reference ranges are not reported, since discordance with absolute values may lead to misinterpretation of CBC data. Current Interpretive Data was last revised on 2017. Basophil pct 1.6 % [facility] Comment: Interpretive Data Percent cell count reference ranges are not reported, since discordance with absolute values may lead to misinterpretation of CBC data. Current Interpretive Data was last revised on 2017. Blood 08/06/2022 12:3 2 AM [facility] 08/06/2022 12:36 AM [facility] Юлия CHARLES LAB BLOOD ORDERABLES Final Re sult Performing Organization Address [facility] Co de Phone Number [address] [address] * (ABNORMAL) Influenza A/B, RSV, and COVID-19 PCR Nasopharyngeal (08/06/2022 12:32 AM [facility]) Pathologist [facility] [place] COVID-19 RNA Positive(A) Negative [facility] Influenza A RNA Negative Negative [facility] Influenza B RNA Negative Negative [facility] RSV RNA Negative Negative [facility] Comment: Interpretive data: This test is performed using the [employer] Xpert Xpress CoV-2/Flu/RSV plus assay. This is a multiplex, real-time reverse transcriptase PCR assay intended for the qualitative detection of nucleic acid from SARS-CoV-2, influenza A, influenza B, and respiratory syncytial virus. This assay has been reviewed by the FDA for Emergency Use Authorization (EUA). The performance characteristics have been verified by the performing laboratory. Results must be considered in the clinical context, and a negative result does not rule out infection. Interpretive Data last revised 2021. Nasopharyngeal 08/06/2022 12 :32 AM [facility] 08/06/2022 12:36 AM [facility] Narrative [facility] - 08/06/2022 1:19 AM [facility] Is the Patient experiencing symptoms consistent with COVID?->Yes Date of Symptom Onset->08/06/22 Reason for testing?->Symptomatic Юлия CHARLES LAB MICROBIOLOGY - GENERAL OR DERABLES Final Result Performing Organization Address [facility]/ZIP Co de Phone Number [address] [place] [address] * (ABNORMAL) Pro B-type natriuretic peptide (08/06/2022 12:32 AM [facility]) [facility] NT-proBNP 2,211(H) <=450 pg/mL [facility] Comment: Interpretive Comments: A. Dyspnea in Acute Care Setting All Ages: ?< 300 pg/ml, acute heart failure unlikely. < 50 yrs: ?300 - 450 pg/ml, further investigation warranted. ? > 450 pg/ml, acute heart failure likely. 50 - 74 yrs: ? 300 - 900 pg/ml, further investigation warranted. ? > 900 pg/ml, acute heart failure likely . > or = 75 yrs: ? 450 - 1800 pg/ml, further investigation warranted. ? > 1800 pg/ml, acute heart failure likely. B. Non-acute Setting < 75 yrs ? < 125 pg/ml, rules out heart failure. ? > or = 125 pg/ml, further investigation warranted. > or = 75 yrs ?< 450 pg/ml, rules out heart failure. ? > or = 450 pg/ml, further investigation warranted. - Knowledge of each individual patient's NT-proBNP range may be more useful than using similar cut-points for every patient. Please note that marked elevations in NT-proBNP levels may be observed in state other than Left Ventricular Congestive Failure, including: acute coronary syndromes, right heart strain/failure (including pulmonary embolism and cor pulmonale), critical illness, renal failure, as well as advanced age. - References: 1. Terrance DOUGLAS et.al. Eur Heart J. 2006:27:330-337. 2. Rose OWEN, Debbie MOHAN. J. AM Maki Cardiol: Cardiovasc Imag. 2009;2: 216- 225. Interpretive Data Last Revised Date: 2018. Blood 08/06/2022 12:3 2 AM [facility] 08/06/2022 12:36 AM [facility] Юлия CHARLES LAB BLOOD ORDERABLES Final Re sult Performing Organization Address [facility] Co de Phone Number [id number] [place] [address] * (ABNORMAL) Troponin T high-sensitivity series (baseline, 2hr, 4hr, 6hr) (08/06/2022 12:32 AM [facility]) Pathologist [facility] [place] Trop T hs 23(H) <=22 ng/L [facility] Comment: Interpretive Data For further hscTnT resources including the diagnostic algorithm and an aid in interpretation, copy and paste this link: https://nrl.testcatalog.org/show/hsTrop Current Interpretive Data last revised 2020. Blood 08/06/2022 12:3 2 AM [facility] 08/06/2022 12:36 AM [facility] Юлия CHARLES LAB BLOOD ORDERABLES Final Re sult Performing Organization Address [facility] de Phone Number [id number] [place] [address] * (ABNORMAL) Comprehensive metabolic panel (08/06/2022 12:32 AM [facility]) [facility] Sodium 142 135 - 145 mmol/L [facility] Potassium, pl 3.7 3.3 - 4.9 mmol/L [facility] Chloride 107 97 - 110 mmol/L [facility] CO2 28 22 - 32 mmol/L [facility] Anion gap 7 2 - 15 mmol/L [facility] BUN 30(H) 8 - 25 mg/dL [facility] Creatinine 1.20 0.80 - 1.30 mg/dL [facility] Glucose 71 70 - 199 mg/dL [facility] Comment: Interpretive Data Fasting glucose >/= 126 [...] 2022. Calcium 8.9 8.5 - 10.3 mg/dL [facility] Bilirubin, total 0.4 0.1 - 1.2 mg/dL [facility] Protein, pl 6.4(L) 6.5 - 8.5 g/dL [facility] Albumin 4.0 3.5 - 5.0 g/dL [facility] Alk phos 109 40 - 130 Units/L [facility] ALT 14 7 - 55 Units/L [facility] AST 16 10 - 50 Units/L [facility] Blood 08/06/2022 12:3 2 AM [facility] 08/06/2022 12:36 AM [facility] us Юлия CHARLES LAB BLOOD ORDERABLES Final Re sult [address] [place] [address] * (ABNORMAL) CBC with auto differential (08/06/2022 12:32 AM [facility]) WBC 4.9 3.8 - 9.9 K/cumm [facility] Hgb 14.3 13.0 - 17.5 g/dL [facility] Hct 44.5 38.9 - 50.3 % [facility] Plt 161 150 - 400 K/cumm [facility] MPV 11.4 9.1 - 12.3 fL [facility] RBC 5.27 4.30 - 5.80 M/cumm [facility] MCV 84.4 81.3 - 96.4 fL [facility] MCH 27.1 27.1 - 33.3 pg [facility] MCHC 32.1(L) 32.3 - 35.7 g/dL [facility] RDW CV 14.0 11.1 - 14.9 % [facility] RDW SD 43.0 35.7 - 48.1 fL [facility] NRBC abs 0.00 0.00 - 0.01 K/cumm [facility] Blood 08/06/2022 12:3 2 AM [facility] 08/06/2022 12:36 AM [facility] Юлия CHARLES LAB BLOOD ORDERABLES Final Re sult [facility] [address] [facility] [place] [address] * ECG 12 lead (08/06/2022 12:16 AM [facility]) Ventricular Rate EKG/Min 48 BPM [facility] Atrial Rate 40 BPM [facility] QRS-Interval (MSEC) 116 ms [facility] QT-Interval (MSEC) 456 ms [facility] QTc 407 ms [facility] R Nebo -40 degrees [facility] T Nebo 130 degrees [facility] Diagnosis Atrial fibrillation with slow ventricular response with premature ventricular or aberrantly conducted complexes Left axis deviation Left ventricular hypertrophy with QRS widening Septal infarct , age undetermined Intraventricula r conduction defect ST & T wave abnormality, consider lateral ischemia Abnormal ECG When compared with ECG of 15-SEP-2016 14:55, Significant changes have occurred [facility] 08/06/2022 12:1 6 AM [facility] 08/06/2022 9:23 PM [facility] Юлия CHARLES ECG ORDERABLES Final Result Performing Organization Address City/[facility]/ZIP Co de Phone Number [facility] * XR Chest 1 View (08/06/2022 12:15 AM [facility]) Anatomical Region Laterality Modality Body, Chest N/A Computed Radiogr aphy 08/06/2022 12:5 2 AM [facility] Narrative 08/06/2022 12:53 AM [facility] EXAM DESCRIPTION: ?? XR CHEST 1 VIEW REASON FOR STUDY: ?? general weakness ?? Pt arrives to ER with son for low HR at home. Son states that HR ranged from 32-44 with a BP reading of 185/75. ?? Pt was recently diagnosed with Covid and has been taking Paxlovid. ?? Pt denies dizziness and light headiness at home and at this time ?? TECHNIQUE: ??Portable upright AP view of the chest. COMPARISON: 12/08/2021 FINDINGS: LUNGS AND PLEURA: ??No focal opacity, large effusion, or pneumothorax identified. HEART/MEDIASTINUM: ??Trachea midline. ?? Cardiac silhouette normal in size. Mediastinal contours appear normal. BONES: ??Unremarkable. ?? CHEST WALL: ??Unremarkable. ?? UPPER ABDOMEN: ??Unremarkable. ?? IMPRESSION: No acute abnormality identified. ?? THIS IS AN ELECTRONICALLY VERIFIED FINAL REPORT 08/06/2022 12:53 AM - Electronically signed by ??Shamar MARIN D: ??08/06/2022 12:53 AM T: Report ID: [id number] [place] Location: ??[id number] Procedure Note Shamar Gonzalez MD - 08/06/2022 EXAM DESCRIPTION: XR CHEST 1 VIEW REASON FOR STUDY: general weakness Pt arrives to ER with son for low HR at home. Son states that HR rangedfrom 32-44 with a BP reading of 185/75. Pt was recently diagnosed with Covidand has been taking Paxlovid. Pt denies dizziness and light headiness athome and at this time TECHNIQUE: Portable upright AP view of the chest. COMPARISON: 12/08/2021 FINDINGS: LUNGS AND PLEURA: No focal opacity, large effusion, orpneumothorax identified. HEART/MEDIASTINUM: Trachea midline. Cardiac silhouette normal in size. Mediastinal contours appear normal. BONES: Unremarkable. CHEST WALL: Unremarkable. UPPER ABDOMEN: Unremarkable. IMPRESSION: No acute abnormality identified. 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 Generalized weakness Mixed hyperlipidemia documented in this encounter Admitting Diagnoses Diagnosis Bradycardia Other specified cardiac dysrhythmias documented in this encounter Administered Medications Inactive Administered Medications - up to 3 most recent administrations Medication Order MAR Action Action Date Dose Rate Site acetaminophen (TYLENOL) tablet 650 mg 650 mg, oral, Every 6 hours PRN, headaches, fever, 1st line for pain, Starting on Mon08/09/22 at 2000 Given 08/10/2022 4:11 AM [facility] 650 mg acetaminophen (TYLENOL) tablet 975 mg 975 mg (rounded from 1,000 mg), oral, Every 8 hours scheduled, First dose on Mon08/08/22 at 2300 Given 08/09/2022 3:25 PM [facility] 975 mg Given 08/09/2022 5:39 AM [facility] 975 mg Given 08/08/2022 11:09 PM [facility] 975 mg albuterol HFA (PROVENTIL HFA,VENTOLIN HFA,PROAIR HFA) 90 mcg/actuation inhaler 2 puff 2 puff, inhalation, Every 4 hours 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 (manager respiratory), wheezing, shortness of breath, Starting on Mon08/07/22 at 1037 Given 08/08/2022 4:00 PM [facility] 2 puffs ALPRAZolam (XANAX) tablet 0.5 mg 0.5 mg, oral, Once, On Mon08/10/22 at 1845, For 1 dose Given 08/10/2022 6:13 PM [facility] 0.5 mg amLODIPine (NORVASC) tablet 2.5 mg 2.5 mg, oral, Daily, First dose on Mon08/10/22 at 1845 Given 08/11/2022 9:21 AM [facility] 2.5 mg Given 08/10/2022 6:13 PM [facility] 2.5 mg apixaban (ELIQUIS) tablet 5 mg 5 mg, oral, Every 12 hours scheduled, First dose on 08/06/22 at 1215, Nurse to discontinue heparin infusion order and associated bolus at first administration of apixaban using 'order condition met' order source, Indications: atrial fibrillationIndications:atrial fibrillation Given 08/11/2022 9:15 AM [facility] 5 mg Given 08/10/2022 9:06 PM [facility] 5 mg Given 08/10/2022 9:11 AM [facility] 5 mg aspirin enteric coated tablet 81 mg 81 mg, oral, Daily, First dose on Mon08/06/22 at 0900, Do not crush, chew, cut, dissolve, open or otherwise manipulate tablet/capsule. Given 08/11/2022 9:14 AM [facility] 81 mg Given 08/10/2022 9:12 AM [facility] 81 mg Given 08/09/2022 9:06 AM [facility] 81 mg atorvastatin (LIPITOR) tablet 40 mg 40 mg, oral, Daily, First dose on Mon08/06/22 at 0900 Given 08/11/2022 9:21 AM [facility] 40 mg Given 08/10/2022 9:11 AM [facility] 40 mg Given 08/09/2022 9:05 AM [facility] 40 mg atropine injection 0.4 mg 0.4 mg, intravenous, Administer over 1 Minutes, Once, On Mon08/06/22 at 0109, For 1 dose Given 08/06/2022 1:14 AM [facility] 0.4 mg atropine injection 0.4 mg 0.4 mg, intravenous, Administer over 1 Minutes, Once, On Mon08/06/22 at 0337, For 1 dose Given 08/06/2022 4:38 AM [facility] 0.4 mg cefepime (MAXIPIME) 1,000 mg in sodium chloride 0.9% 100 mL IVPB 1,000 mg, intravenous, at 200 mL/hr, Administer over 30 Minutes, Every 8 hours scheduled, First dose on Mon08/09/22 at 0600, Mini-Bag Plus bag, Indications: Pneumonia, Hospital AcquiredIndications:Pneumonia, Hospital Acquired New Bag 08/10/2022 9:06 PM [facility] 1,000 mg 200 mL/hr New Bag 08/10/2022 4:48 PM [facility] 1,000 mg 200 mL/hr New Bag 08/10/2022 5:30 AM [facility] 1,000 mg 200 mL/hr cefepime (MAXIPIME) 2,000 mg in sodium chloride 0.9% 100 mL IVPB 2,000 mg, intravenous, at 200 mL/hr, Administer over 30 Minutes, Once, On Mon08/08/22 at 2200, For 1 dose, Mini-Bag Plus bag, Indications: Pneumonia, Hospital AcquiredIndications:Pneumonia, Hospital Acquired New Bag 08/08/2022 9:51 PM [facility] 2,000 mg 200 mL/hr finasteride (PROSCAR) tablet 5 mg 5 mg, oral, Daily, First dose on 08/06/22 at 0900, Do not crush, break, or open. Given 08/11/2022 9:26 AM [facility] 5 mg Given 08/10/2022 9:18 AM [facility] 5 mg Given 08/09/2022 9:06 AM [facility] 5 mg hydrALAZINE (APRESOLINE) injection 10 mg 10 mg, intravenous, Administer over 2 Minutes, Every 4 hours PRN, high blood pressure, SBP >160, Starting on 08/06/22 at 0541 Given 08/07/2022 3:07 PM [facility] 10 mg Given 08/06/2022 7:43 AM [facility] 10 mg hydrALAZINE (APRESOLINE) injection 20 mg 20 mg, intravenous, Administer over 2 Minutes, Every 4 hours PRN, high blood pressure, SBP >160, Starting on Mon08/08/22 at 0931 Given 08/11/2022 9:26 AM [facility] 20 mg Given 08/10/2022 4:57 PM [facility] 20 mg Given 08/10/2022 4:08 AM [facility] 20 mg HYDROcodone-acetaminophen (NORCO) 5-325 mg per tablet 1 tablet 1 tablet, oral, Every 4 hours PRN, 2nd line for pain, Starting on Mon08/10/22 at 1736, Indications: PainIndications:Pain Given 08/10/2022 5:52 PM [facility] 1 tablet Lactated Ringer's (LR) infusion 50 mL/hr, intravenous, Continuous, Starting on 08/06/22 at 0615 New Bag 08/06/2022 6:07 AM [facility] 50 mL/hr 50 mL/hr Lactated Ringer's (LR) infusion 75 mL/hr, intravenous, Continuous, Starting on Mon08/10/22 at 0830, For 13 hours, Only for 1L New Bag 08/10/2022 9:18 AM [facility] 75 mL/hr 75 mL/hr lidocaine (LIDODERM) 5 % patch 1 patch 1 patch, transdermal, Administer over 12 Hours, Daily, First dose on Mon08/10/22 at 1815, Do not cover the holes on the top side of the patch., Apply to affected area: back Medication Applied 08/11/2022 9:13 AM [facility] 1 patch Back Medication Applied 08/10/2022 6:34 PM [facility] 1 patch Back lisinopriL (PRINIVIL,ZESTRIL) tablet 10 mg 10 mg, oral, Daily, First dose on 08/06/22 at 1200 Given 08/07/2022 9:22 AM [facility] 10 mg Given 08/06/2022 12:21 PM [facility] 10 mg lisinopriL (PRINIVIL,ZESTRIL) tablet 10 mg 10 mg, oral, Once, On 08/07/22 at 1245, For 1 dose Given 08/07/2022 12:54 PM [facility] 10 mg lisinopriL (PRINIVIL,ZESTRIL) tablet 20 mg 20 mg, oral, Daily, First dose (after last modification) on 08/08/22 at 0900, On hold since Mon08/10/2022 at 0747 until manually unheld Given 08/09/2022 9:05 AM [facility] 20 mg Given 08/08/2022 8:41 AM [facility] 20 mg magnesium oxide (MAG-OX) tablet 400 mg 400 mg, oral, 2 times daily, First dose on 08/07/22 at 1230, 1 tablet = Magnesium oxide 400 mg = 241.3 mg elemental magnesium, Indications: hypomagnesemiaIndications:hypomagnesemia Given 08/11/2022 9:15 AM [facility] 400 mg Given 08/10/2022 9:05 PM [facility] 400 mg Given 08/10/2022 9:11 AM [facility] 400 mg metoprolol XL (TOPROL-XL) extended release tablet 25 mg 25 mg, oral, Daily, First dose on 08/07/22 at 1230, Tablets that are scored may be split, but do not crush, chew, dissolve, open or otherwise manipulate tablet/capsule. Given 08/11/2022 9:21 AM [facility] 25 m g Given 08/10/2022 9:11 AM [facility] 25 mg Given 08/09/2022 9:06 AM [facility] [address] (PROTONIX) extended release tablet 40 mg 40 mg, oral, Daily, First dose on 08/06/22 at 0900, Do not crush, chew, cut, dissolve, open or otherwise manipulate tablet/capsule., Indications: Treatment of Non-Bleeding Gastric DisorderIndications:Treatment of Non-Bleeding Gastric Disorder Given 08/11/2022 9:14 AM [facility] 40 mg Given 08/10/2022 9:11 AM [facility] 40 mg Given 08/09/2022 9:05 AM [facility] 40 mg potassium chloride ER (KLOR-CON) extended release tablet 20 mEq 20 mEq, oral, Once, On Mon08/08/22 at 1100, For 1 dose, Do not crush, chew, cut, dissolve, open or otherwise manipulate tablet/capsule. Given 08/08/2022 10:48 AM [facility] 20 mEq potassium chloride ER (KLOR-CON) extended release tablet 40 mEq 40 mEq, oral, Once, On 08/06/22 at 1145, For 1 dose, Do not crush, chew, cut, dissolve, open or otherwise manipulate tablet/capsule. Given 08/06/2022 12:21 PM [facility] 40 mEq potassium chloride ER (KLOR-CON) extended release tablet 40 mEq 40 mEq, oral, Once, On Mon08/07/22 at 1230, For 1 dose, Do not crush, chew, cut, dissolve, open or otherwise manipulate tablet/capsule. Given 08/07/2022 12:54 PM [facility] 40 mEq ramelteon (ROZEREM) tablet 8 mg 8 mg, oral, Nightly PRN, sleep, Starting on Mon08/09/22 at 1959, Indications: Sleep-Onset InsomniaIndications:Sleep-Onset Insomnia Given 08/10/2022 9:06 PM [facility] 8 m g Given 08/09/2022 9:06 PM [facility] 8 mg vancomycin 1,000 mg/250 mL in sodium chloride 0.9% (premix) 1,000 mg 1,000 mg (rounded from 1,011 mg = 15 mg/kg ? 67.4 kg), intravenous, Administer over 60 Minutes, Once, On Mon08/08/22 at 2200, For 1 dose, Indications: Pneumonia, Hospital AcquiredIndications:Pneumonia, Hospital Acquired New Bag 08/08/2022 10:24 PM [facility] 1,000 mg vancomycin 750 mg/250 mL in sodium chloride 0.9% (premix) 750 mg 750 mg, intravenous, Administer over 60 Minutes, Every 24 hours, First dose on Mon08/09/22 at 2100, Indications: Pneumonia, Hospital AcquiredIndications:Pneumonia, Hospital Acquired New Bag 08/09/2022 9:05 PM [facility] 750 mg documented in this encounter Discontinued Medications Medication Sig Discontinue Reason Start Date End Da te clopidogreL (PLAVIX) 75 mg tablet Take 1 tablet (75 mg total) by mouth daily Stop Taking at Discharge 11/05/2021 08/11/2022 metoprolol XL (TOPROL-XL) 50 mg extended release tablet Take 1 tablet (50 mg total) by mouth daily Stop Taking at Discharge 11/05/2021 08/11/2022 nirmatrelvir 300 mg-ritonavir 100 mg (PAXLOVID 300mg-100 mg) tablets,dose pack tablets in a dose pack (EUA) Take 300 mg nirmatrelvir (2 x 150 mg tablets) with 100 mg ritonavir (1 x 100 mg tablet) with all three tablets taken together by mouth twice daily for 5 days Stop Taking at Discharge 08/04/2022 08/11/2022 documented as of this encounter Active and Recently Administered Medications Times are shown in [facility]. Scheduled Medication Order 08/09/2022 08/10/2022 08/11/2022 acetaminophen (TYLENOL) tablet 975 mg (CANCELED) 975 mg (rounded from 1,000 mg), oral, Every 8 hours scheduled, First dose on Mon08/08/22 at 2300 0539 (Given - Provider: Jose De Jesus Rogel RN)1525 (Given - Provider: Sheryl Martinez) ALPRAZolam (XANAX) tablet 0.5 mg (COMPLETED) 0.5 mg, oral, Once, On Mon08/10/22 at 1845, For 1 dose 1813 (Given - Provider: Padma Arshad RN) amLODIPine (NORVASC) tablet 2.5 mg 2.5 mg, oral, Daily, First dose on Mon08/10/22 at 1845 1813 (Given - Provider: Padma Arshad RN) 0921 (Given - Provider: Padma Arshad RN) apixaban (ELIQUIS) tablet 5 mg 5 mg, oral, Every 12 hours scheduled, First dose on Mon08/06/22 at 1215, Nurse to discontinue heparin infusion order and associated bolus at first administration of apixaban using 'order condition met' order source, Indications: atrial fibrillation 905 (Given - Provider: Sheryl Martinez)2105 (Given - Provider: Jose De Jesus Rogel RN) 0911 (Given - Provider: Padma Arshad RN)210 (Given - Provider: Jose De Jesus Rogel RN) 0915 (Given - Provider: Pdama Arshad, RN) aspirin enteric coated tablet 81 mg 81 mg, oral, Daily, First dose on Mon08/06/22 at 0900, Do not crush, chew, cut, dissolve, open or otherwise manipulate tablet/capsule. 0906 (Given - Provider: Sheryl Martinez) 0912 (Given - Provider: Padma Arshad RN) 0914 (Given - Provider: Padma Arshad RN) atorvastatin (LIPITOR) tablet 40 mg 40 mg, oral, Daily, First dose on Mon08/06/22 at 0900 0905 (Given - Provider: Sheryl Martinez) 09 (Given - Provider: Padma Arshad RN) 09 (Given - Provider: Padma Arshad RN) cefepime (MAXIPIME) 1,000 mg in sodium chloride 0.9% 100 mL IVPB(Linked Group 1) 1,000 mg, intravenous, at 200 mL/hr, Administer over 30 Minutes, Every 8 hours scheduled, First dose on Mon08/09/22 at 0600, Mini-Bag Plus bag, Indications: Pneumonia, Hospital Acquired 0538 (New Bag - Provider: Jose De Jesus Rogel RN)1525 (New Bag - Provider: Sheryl Martinez)2219 (New Bag - Provider: Jose De Jesus Rogel, SUE) 0530 (New Bag - Provider: Jose De Jesus Rogel, RN)1648 (New Bag - Provider: Padma Arshad, SUE)2106 (New Bag - Provider: Jose De Jesus Rogel RN) 0600 (Due) finasteride (PROSCAR) tablet 5 mg 5 mg, oral, Daily, First dose on Mon08/06/22 at 0900, Do not crush, break, or open. 09 (Given - Provider: Sheryl Martinez) 0918 (Given - Provider: Padma Arshad RN) 0926 (Given - Provider: Padma Arshad, SUE) lidocaine (LIDODERM) 5 % patch 1 patch 1 patch, transdermal, Administer over 12 Hours, Daily, First dose on Mon08/10/22 at 1815, Do not cover the holes on the top side of the patch., Apply to affected area: back 183 (Medication Applied - Provider: Padma Arshad RN) 09 (Medication Removed - Provider: Padma Arshad RN)0913 (Medication Applied - Provider: Padma Arshad RN)1250 (Due: Medication Removed - Provider: Automatic Discharge Provider - Comment: Time automatically adjusted from order being discontinued) lisinopriL (PRINIVIL,ZESTRIL) tablet 20 mg 20 mg, oral, Daily, First dose (after last modification) on Mon08/08/22 at 0900, On hold since Mon08/10/2022 at 0747 until manually unheld 09 (Given - Provider: Sheryl Martinez) 0747 (Held by Provider - Provider: Hi Le MD - Reason: Change in Patient Status)0900 (Dose Auto Held - Provider: Hi Le MD) 0900 (Dose Auto Held - Provider: Hi Le MD)1654 (Unheld by Provider - Provider: Automatic Discharge Provider) magnesium oxide (MAG-OX) tablet 400 mg 400 mg, oral, 2 times daily, First dose on 08/07/22 at 1230, 1 tablet = Magnesium oxide 400 mg = 241.3 mg elemental magnesium, Indications: hypomagnesemia 904 (Given - Provider: Sheryl Martinez)2105 (Given - Provider: Jose De Jesus Rogel RN) 910 (Given - Provider: Padma Arshad RN)2104 (Given - Provider: Jose De Jesus Rogel RN) 0915 (Given - Provider: Padma Arshad RN) metoprolol XL (TOPROL-XL) extended release tablet 25 mg 25 mg, oral, Daily, First dose on 08/07/22 at 1230, Tablets that are scored may be split, but do not crush, chew, dissolve, open or otherwise manipulate tablet/capsule. 09 (Given - Provider: Sheryl Martinez) 910 (Given - Provider: Padma Arshad RN) 09 (Given - Provider: Padma Arshad RN) pantoprazole DR (PROTONIX) extended release tablet 40 mg 40 mg, oral, Daily, First dose on Mon08/06/22 at 0900, Do not crush, chew, cut, dissolve, open or otherwise manipulate tablet/capsule., Indications: Treatment of Non-Bleeding Gastric Disorder 09 (Given - Provider: Sheryl Martinez) 0911 (Given - Provider: Padma Arshad, SUE) 0914 (Given - Provider: Padma Arshad, RN) vancomycin 750 mg/250 mL in sodium chloride 0.9% (premix) 750 mg (CANCELED) 750 mg, intravenous, Administer over 60 Minutes, Every 24 hours, First dose on Mon08/09/22 at 2100, Indications: Pneumonia, Hospital Acquired 2104 (New Bag - Provider: Jose De Jesus Rogel RN) 1999 (Lab Draw - Provider: Trey Rushing [facility] - Comment: Send level prior to administration.) Continuous Medication Order 08/09/2022 08/10/2022 08/11/2022 Lactated Ringer's (LR) infusion () 75 mL/hr, intravenous, Continuous, Starting on Mon08/10/22 at 0830, For 13 hours, Only for 1L 0916 (Due)0918 (New Bag - Provider: Padma Arshad RN) PRN Medication Order 08/09/2022 08/10/2022 08/11/2022 acetaminophen (TYLENOL) tablet 650 mg 650 mg, oral, Every 6 hours PRN, headaches, fever, 1st line for pain, Starting on Mon08/09/22 at 2000 0411 (Given - Provider: Jose De Jesus Rogel RN)0412 (Canceled Entry - Provider: Jose De Jesus Rogel RN) albuterol HFA (PROVENTIL HFA,VENTOLIN HFA,PROAIR HFA) 90 mcg/actuation inhaler 2 puff 2 puff, inhalation, Every 4 hours PRN (manager respiratory), wheezing, shortness of breath, Starting on Mon08/07/22 at 1037 hydrALAZINE (APRESOLINE) injection 20 mg 20 mg, intravenous, Administer over 2 Minutes, Every 4 hours PRN, high blood pressure, SBP >160, Starting on Mon08/08/22 at 0931 0914 (Given - Provider: Sheryl Martinez) 0408 (Given - Provider: Jose De Jesus Rogel RN)1657 (Given - Provider: Padma Arshad RN) 0926 (Given - Provider: Padma Arshad, RN) HYDROcodone-acetaminop hen (NORCO) 5-325 mg per tablet 1 tablet 1 tablet, oral, Every 4 hours PRN, 2nd line for pain, Starting on Mon08/10/22 at 1736, Indications: Pain 1752 (Given - Provider: Padma Arshad, RN) ramelteon (ROZEREM) tablet 8 mg 8 mg, oral, Nightly PRN, sleep, Starting on Mon08/09/22 at 1959, Indications: Sleep-Onset Insomnia 2105 (Given - Provider: Jose De Jesus Rogel, RN) 2105 (Given - Provider: Jose De Jesus Rogel, RN) Linked Groups Order Group 1: cefepime (MAXIPIME) 2,000 mg in sodium chloride 0.9% 100 mL IVPB (COMPLETED) 2,000 mg, intravenous, at 200 mL/hr, Administer over 30 Minutes, Once, On Mon08/08/22 at 2200, For 1 dose, Mini-Bag Plus bag, Indications: Pneumonia, Hospital Acquired Followed by cefepime (MAXIPIME) 1,000 mg in sodium chloride 0.9% 100 mL IVPBJump to med 1,000 mg, intravenous, at 200 mL/hr, Administer over 30 Minutes, Every 8 hours scheduled, First dose on Mon08/09/22 at 0600, Mini-Bag Plus bag, Indications: Pneumonia, Hospital Acquired documented in this encounter Orders Medications Ordered That Reg ht Not Have Been Administered Count Last Ordered Date First Ordered Date cefepime (MAXIPIME) 1,000 mg in sodium chloride 0.9% 100 mL IVPB 1 08/08/2022 enoxaparin (LOVENOX) syringe 40 mg 1 2022 heparin 1,000 unit/mL inject ion 2,700 Units 1 08/06/2022 heparin 1,000 unit/mL inject ion 5,400 Units 2 08/06/2022 heparin in 0.45% sodium chlo ride 25,000 units/250 mL (100 units/mL) infusion (premix) 1 08/06/2022 Diet Count Last Ordered Date First Orde red Date ADULT DISCHARGE DIET 1 08/11/2022 Nursing Count Last Ordered Date First Orde red Date DISCHARGE CALL PROVIDER 5 08/11/2022 DISCHARGE INSTRUCTIONS 1 08/11/2022 TELEMETRY MONITORING 1 08/06/2022 WEIGH PATIENT 1 08/06/2022 Consult Count Last Ordered Date First Orde red Date IP CONSULT TO CARDIOLOGY 1 08/06/2022 IV Count Last Ordered Date First Orde red Date SALINE LOCK IV 1 08/06/2022 Admission Count Last Ordered Date First Orde red Date ADMIT TO INPATIENT 1 08/06/2022 Transfer Count Last Ordered Date First Orde red Date TRANSFER PATIENT TO NEW UNIT 1 08/06/2022 Discharge Count Last Ordered Date First Orde red Date DISCHARGE PATIENT 1 08/11/2022 documented in this encounter Additional Health Concerns Infection Onset Date Last Indicated Resolved Time COVID: Suspected 08/06/2022 08/06/2022 08/06/2022 1:19 AM [facility] COVID19 Comment:Airborne + Contact precautions. Gown, Gloves, N95, eye protection or goggles. Precautions 08/16/22. Contact Power Regulator if patient worsens. SUE Baldwin 08/12/22 08/06/2022 08/06/2022 08/16/2022 3:[address] Coronavirus, contact + dropl et Comment:Negative for coronavirus 08/06/2022 08/06/2022 023 12:29 PM [facility] documented as of this encounter Care Teams Maintenance Department Technician Relationship Specialty Start Date End Date Christine Herzog MD [address] [facility] [place] [address] PCP - General Internal Medicine 12/02/21 Trey Pinedo MD [address] [facility] [address] [place] [address] Consulting Physician Neurology 05/09/19 Albert Craft MD [address] [facility] [place] [address] Consulting Physician Gastroenterology 03/11/22 Chintan Figueroa MD [address] [place] [address] [place] [address] Consulting Physician Hematology and Oncology 03/11/22 Jameel Bloom DPM [address] [place] [address] Consulting Physician Orthotics 03/11/22 Gadiel Genao MD [address] [place] [address] Surgeon Vascular Surgery 03/11/22 documented as of this encounter
--- OUTSIDE RECORDS SUMMARY | 2024-06-18 18:07 | XMS_ITS | Encounter Summary ---
Author Organization [facility] Healthcare Address [address] [place] [address] Care Team Providers Care Entry Level Assistant Manager Name Role Phone Trey Pinedo MD Unavailable [phone] Christine Herzog MD Primary Care Provide r Albert Craft MD Unavailable [phone] Chintan Figueroa MD Unavailable [phone] Jameel Bloom DPM Unavailable [phone] Gadiel Genao MD Unavailable [phone] Reason for Visit * Reason Comments OP Infusion Here for phlebotomy. 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 He is here for a phlebotomy. His Hematocrit was 47.7 today. He was seen in follow up by Nurse Practitioner, Monika Castellano. He was assisted to [facility]. Assessment completed. At 11:20 phlebotomy started after a #20 G intima was started in his left upper forearm per protocol. A brisk blood return was received. At 11:50 phlebotomy completed and 540 ml of whole blood was removed and discarded. Patient was offered something to drink during the procedure, but he declined. After phlebotomy competed. His blood pressure was taken at 11:56, and a reading of 160/80 was received. Patient denied and dizziness or light headedness. He was assisted to a transport chair and was taken out to his truck, accompanied by his . He had been given a copy of his AVS, with his return appointments, and left in stable condition. documented in this encounter Plan of Treatment Not on file documented as of this encounter Visit Diagnoses Diagnosis Polycythemia- Primary Polycythemia, secondary documented in this encounter Orders Nursing Count Last Ordered Date First Orde red Date ONCBCN THERAPEUTIC PHLEBOTOMY 1 04/27/2022 Appointment Requests Count Last Ordered Date Fi rst Ordered Date ONCBCN INFUSION APPT REQUEST 1 04/27/2022 documented in this encounter Care Teams Entry Level Assistant Manager Relationship Specialty Start Date End Date Christine Herzog MD [address] [facility] [place] [address] PCP - General Internal Medicine 12/02/21 Trey Pinedo MD [address] [facility] [address] [place] [address] Consulting Physician Neurology 05/09/19 Albert Craft MD [address] [facility] [place] [address] Consulting Physician Gastroenterology 03/11/22 Chintan Figueroa MD [address] [facility] [place] [address] Consulting Physician Hematology and Oncology 03/11/22 Jameel Bloom DPM [address] [place] [address] Consulting Physician Orthotics 03/11/22 Gadiel Genao MD [address] [place] [address] Surgeon Vascular Surgery 03/11/22 documented as of this encounter
--- OUTSIDE RECORDS SUMMARY | 2024-06-18 18:07 | XMS_ITS | Encounter Summary ---
Author Organization [facility] Address [address] [place] [address] Phone Care Team Providers Care Rn Er Name Role Phone Trey Pinedo MD Unavailable [phone] Christine Herzog MD Primary Care Provide r Albert Craft MD Unavailable [phone] Chintan Figueroa MD Unavailable [phone] Jameel Bloom DPM Unavailable [phone] Gadiel Genao MD Unavailable [phone] Encounter Details Date Type Department Care Team (Late st Contact Info) Description 04/26/2022 Telephone [facility] Oncology [address] [place] [address] Medical Office [facility] [address] [phone] Alla Huerta, NICAT Social History Tobacco Use [...] than three times a week 12/31/2020 Attends Christianity Services Not on file 12/31 Active Member [...] on file 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 Gender Identity Not on file Sexual Orientation Straight 01/23/2021 10 :16 PM CDT documented as of this encounter Miscellaneous Notes * Telephone Encounter - Alla Huerta CLT - 04/26/2022 1:23 PM CDT Lmom 04/27 appt reminder documented in this encounter Plan of Treatment Not on file documented as of this encounter Visit Diagnoses Not on filedocumented in this encounter Care Teams Rn Er Relationship Specialty Start Date End Date Christine Herzog MD [address] [facility] [address] [place] [address] PCP - General Internal Medicine 12/02/21 Trey Pinedo MD [address] [facility] [address] [place] [address] Consulting Physician Neurology 05/09/19 Albert Craft MD [address] [facility] [address] [place] [address] Consulting Physician Gastroenterology 03/11/22 Chintan Figueroa MD [address] [facility] [address] [place] [address] Consulting Physician Hematology and Oncology 03/11/22 Jameel Bloom DPM [address] [place] [address] Consulting Physician Orthotics 03/11/22 Gadiel Genao MD [address] [place] [address] Surgeon Vascular Surgery 03/11/22 documented as of this encounter
--- OUTSIDE RECORDS SUMMARY | 2024-06-18 18:07 | XMS_ITS | Encounter Summary ---
Author Organization [facility] Healthcare Address [address] [place] [address] Care Team Providers Care Water Main Inspector Name Role Phone Trey Pinedo MD Unavailable [phone] Christine Herzog MD Primary Care Provide r Albert Craft MD Unavailable [phone] Chintan Figueroa MD Unavailable [phone] Jameel Bloom DPM Unavailable [phone] Gadiel Genao MD Unavailable [phone] Reason for Referral * MRI/CAT/PET Scan (Routine) - Closed Specialty Diagnoses / Procedures Referred By Contac t Referred To Contact Radiology Diagnoses Carotid artery disease (HCC) PVD (peripheral vascular disease) (HCC) Procedures CTA Head Neck W WO Contrast Gadiel Genao MD Phone: tel: fax: [address] [address] Referral ID Status Reason Start Date Expiration Date Visits Re quested Visits Authorized [id number] Closed 05/25/2021 06/24/2022 1 1 NING INTERN Reason for Visit * MRI/CAT/PET Scan (Routine) - Closed Specialty Diagnoses / Procedures Referred By Contac t Referred To Contact Radiology Diagnoses Carotid artery disease (HCC) PVD (peripheral vascular disease) (HCC) Procedures CTA Head Neck W WO Contrast Gadiel Genao MD Phone: tel: fax: [address] [phone] Referral ID Status Reason Start Date Expiration Date Visits Re quested Visits Authorized [id number] Closed 05/25/2021 06/24/2022 1 1 Encounter Details Date Type Department Care Team (Latest Contact Info) Description 07/12/2022 12:29 PM PLANNING INTERN - 07/12/2022 11:59 PM PLANNING INTERN Hospital Encounter [facility] [address] [place], [place] [id number] Gadiel Genao MD [address] [facility] [id number] [place] [address] Carotid artery disease (CMS/HCC) (HCC); PVD (peripheral vascular disease) (CMS/HCC) (HCC) Discharge Disposition: Discharge to home or self [...] on file 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 PLANNING INTERN Gender Identity Not on file Sexual Orientation Straight 01/23/2021 10 :16 PM CDT documented as of this encounter Medications at Time of Discharge aspirin 81 mg tablet Take one by mouth one time per day 0 0 06/27/2008 atorvastatin (LIPITOR) 40 mg tablet Take 1 tablet (40 mg total) by mouth daily 90 tablet 1 06/06/2022 10/14/2022 clopidogreL (PLAVIX) 75 mg tablet Take 1 tablet (75 mg total) by mouth daily 90 tablet 3 11/05/2021 08/11/[address] (NexIUM) 40 mg capsule Take 40 mg by mouth daily as needed 09/19/2022 finasteride (PROSCAR) 5 mg tabletIndications: benign prostatic hyperplasia with lower urinary tract sx Take 1 tablet (5 mg total) by mouth daily 90 tablet 3 11/05/2021 10/18/2022 metoprolol XL (TOPROL-XL) 50 mg extended release tablet Take 1 tablet (50 mg total) by mouth daily 90 tablet 3 11/05/2021 08/11/2022 documented as of this encounter Discharge Disposition Disposition Code Departure Means Destination Discharge to home or self care documented in this encounter Plan of Treatment Not on file documented as of this encounter Procedures Procedure Name Priority Date/Time Associated Diagnosis Comments CTA HEAD NECK W WO CONTRAST Schedule Routine, Read Routine (OP Routine) 07/12/2022 1:44 PM PLANNING INTERN Carotid artery disease (CMS/HCC) (HCC) PVD (peripheral vascular disease) (CMS/HCC) (HCC) POCT CREATININE - DEVICE Routine 07/12/2022 1:07 PM PLANNING INTERN documented in this encounter Results * CTA Head Neck W WO Contrast (07/12/2022 1:44 PM PLANNING INTERN) Anatomical Region Laterality Modality Head and Neck N/A Computed Tomogra phy 07/12/2022 3:06 PM PLANNING INTERN Impressions 07/12/2022 4:43 PM PLANNING INTERN 1. ??No acute intracranial findings. 2. ??Unchanged mild (less than 50%) stenosis of the cervical internal carotid arteries. ??Unchanged mild to moderate multifocal intracranial atherosclerosis. 3. ??No intracranial aneurysm, large vessel occlusion or vascular malformation. Dictated by: Charbel Mena M.D. The radiology attending physician has personally reviewed this study, and had reviewed and/or edited this written report and agrees with it. Electronically signed by: Simon Redd M.D. Narrative 07/12/2022 4:43 PM PLANNING INTERN EXAMINATION: Computed tomography angiography (CTA) of the head without and with contrast Computed tomography angiography (CTA) of the neck with contrast HISTORY: Evaluate for carotid artery stenosis. TECHNIQUE: Computed tomography of the head was performed without contrast according to standard protocol. Computed tomographic angiography was then obtained from the aortic arch to the vertex following the uneventful administration of intravenous contrast. 3D images were generated on a dedicated workstation. Contrast information: 84 mL Optiray-350 COMPARISON: CT angiogram of the head and neck 05/25/2021. FINDINGS: There is unchanged encephalomalacia within the left frontal lobe which may be sequela of prior infarct or trauma. ??There is hypoattenuation within the periventricular white matter which remains nonspecific but likely sequela senescent small vessel disease. 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 ??There is calcified atherosclerosis in the intracranial vasculature. ??There are multiple missing teeth and dental caries. Topogram demonstrates no lytic lesions or fractures. There is no acute intracranial hemorrhage . Ventricles are of normal size and morphology. No mass effect or midline shift is present. The visualized portions of the orbits are normal. The visualized portions of the mastoids are normal. The visualized portions of the paranasal sinuses are normal. No fractures are identified. There is moderate multilevel degenerative disc disease throughout the cervical spine resulting in up to at least mild spinal canal stenosis. ??There is multilevel facet and uncovertebral osteoarthritis which results in up to severe neuroforaminal stenosis. 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 There is extensive ulcerated calcified and noncalcified atherosclerotic plaque within the thoracic aorta. ??The common carotid arteries assume a retropharyngeal course. There is minimal calcified atherosclerosis at the carotid bifurcations without significant stenosis. ??There is calcified atherosclerosis in the distal cervical right internal carotid artery without significant stenosis. ??There is calcified atherosclerosis in the cavernous internal carotid arteries resulting in moderate stenosis bilaterally. ??There is mild-moderate irregular narrowing of the intracranial vasculature which is likely related to noncalcified atherosclerosis which appears similar to the prior study. ??This is seen particularly involving the left M1, M2 and A2 arteries. ??There is a paucity of vessels throughout the left frontal lobe keeping with the patient's known infarct. ?? Scattered subcentimeter lymph nodes are seen in the neck. None are pathologically enlarged or abnormally enhancing. The muscles of the neck are normal. Fascial planes are preserved and the deep spaces of the neck are normal. The visualized airway is widely patent. Angiographic findings: The zytlnc-en-Ksmhec is complete. The left vertebral artery is dominant. The basilar artery is normal. The posterior cerebral arteries are normal. There is no aneurysm or vascular malformation identified. Procedure Note Simon Redd MD - 07/12/2022 EXAMINATION: Computed tomography angiography (CTA) of the head without and with contrast Computed tomography angiography (CTA) of the neck with contrast HISTORY: Evaluate for carotid artery stenosis. TECHNIQUE: Computed tomography of the head was performed without contrast according to standard protocol. Computed tomographic angiography was then obtained from the aortic arch to the vertex following the uneventful administration of intravenous contrast. 3D images were generated on a dedicated workstation. Contrast information: 84 mL Optiray-350 COMPARISON: CT angiogram of the head and neck 05/25/2021. FINDINGS: There is unchanged encephalomalacia within the left frontal lobe which may be sequela of prior infarct or trauma. There is hypoattenuation within the periventricular white matter which remains nonspecific but likely sequela senescent small vessel disease. There is a unchanged lacunar infarct in the right thalamus. There is calcified atherosclerosis in the intracranial vasculature. There are multiple missing teeth and dental caries. Topogram demonstrates no lytic lesions or fractures. There is no acute intracranial hemorrhage . Ventricles are of normal size and morphology. No mass effect or midline shift is present. The visualized portions of the orbits are normal. The visualized portions of the mastoids are normal. The visualized portions of the paranasal sinuses are normal. No fractures are identified. There is moderate multilevel degenerative disc disease throughout the cervical spine resulting in up to at least mild spinal canal stenosis. There is multilevel facet and uncovertebral osteoarthritis which results in up to severe neuroforaminal stenosis. There is flowing ossification of the anterior longitudinal ligament throughout the upper thoracic spine which may be related to diffuse idiopathic skeletal hyperostosis. There is extensive ulcerated calcified and noncalcified atherosclerotic plaque within the thoracic aorta. The common carotid arteries assume a retropharyngeal course. There is minimal calcified atherosclerosis at the carotid bifurcations without significant stenosis. There is calcified atherosclerosis in the distal cervical right internal carotid artery without significant stenosis. There is calcified atherosclerosis in the cavernous internal carotid arteries resulting in moderate stenosis bilaterally. There is mild-moderate irregular narrowing of the intracranial vasculature which is likely related to noncalcified atherosclerosis which appears similar to the prior study. This is seen particularly involving the left M1, M2 and A2 arteries. There is a paucity of vessels throughout the left frontal lobe keeping with the patient's known infarct. Scattered subcentimeter lymph nodes are seen in the neck. None are pathologically enlarged or abnormally enhancing. The muscles of the neck are normal. Fascial planes are preserved and the deep spaces of the neck are normal. The visualized airway is widely patent. Angiographic findings: The gahjfg-mz-Ixbvro is complete. The left vertebral artery is dominant. The basilar artery is normal. The posterior cerebral arteries are normal. There is no aneurysm or vascular malformation identified. IMPRESSION: 1. No acute intracranial findings. 2. 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 Unchanged mild to moderate multifocal intracranial atherosclerosis. 3. No intracranial aneurysm, large vessel occlusion or vascular malformation. Dictated by: Charbel Mena M.D. The radiology attending physician has personally reviewed this study, and had reviewed and/or edited this written report and agrees with it. Electronically signed by: Simon Redd M.D. Gadiel Genao MD IMG CT PROCEDURES Final Re sult * POCT creatinine (07/12/2022 1:07 PM PLANNING INTERN) Creatinine POC 1.2 0.7 - 1.3 mg/dL [facility] Blood 07/12/2022 1:07 PM PLANNING INTERN 07/12/2022 1:07 PM PLANNING INTERN Wesley Em MD LAB POCT ORDERABLES - DEVICE F inal Result [facility] Department [place] [address] documented in this encounter Visit Diagnoses Diagnosis Carotid artery disease (HCC) Unspecified disorders of arteries and arterioles PVD (peripheral vascular disease) (HCC) Unspecified peripheral vascular disease documented in this encounter Administered Medications Inactive Administered Medications - up to 3 most recent administrations Medication Order MAR Action Action Date Dose Rate Site ioversoL (OPTIRAY 350) injection 100 mL 100 mL, intravenous, Once in imaging, contrast, Starting on Mon07/12/22 at 1344, For 1 dose Contrast Given 07/12/2022 1:45 PM PLANNING INTERN 84 mL documented in this encounter Orders Medications Ordered That Reg ht Not Have Been Administered Count Last Ordered Date First Ordered Date ioversoL (OPTIRAY 350) injection 100 mL 1 0 07/12/2022 documented in this encounter Care Teams Water Main Inspector Relationship Specialty Start Date End Date Christine Herzog MD [address] [place] [address] [address] [place] [address] PCP - General Internal Medicine 12/02/21 Trey Pinedo MD [address] [place] [address] [address] [place] [address] Consulting Physician Neurology 05/09/19 Albert Craft MD [address] [facility] [address] [place] [address] Consulting Physician Gastroenterology 03/11/22 Chintan Figueroa MD [address] [facility] [address] [place] [address] Consulting Physician Hematology and Oncology 03/11/22 Jameel Bloom DPM [address] [place] [address] Consulting Physician Orthotics 03/11/22 Gadiel Genao MD [address] [place] [address] Surgeon Vascular Surgery 03/11/22 documented as of this encounter
--- OUTSIDE RECORDS SUMMARY | 2024-06-18 18:07 | XMS_ITS | Encounter Summary ---
Author Organization [facility] Medical Group Address [address] [place] [address] Care Team Providers Care Director Of Parks And Recreation Name Role Phone Trey Pinedo MD Unavailable [phone] Christine Herzog MD Primary Care Provide r Encounter Details Date Type Department Care Team (Late st Contact Info) Description 12/10/2021 Telephone [place] [facility] [address] [facility] [address] [facility] [address] [place] [address] Christine Herzog MD [address] [facility] [address] [place] [address] Social History Tobacco Use Types [...] than three times a week 12/31/2020 Attends Christian Services Not on file 12/31 Active Member [...] on file 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 I will follow * Telephone Encounter - Whitney Orellana MA - 12/10/2021 9:50 AM CDT jgg * Telephone Encounter - Sepideh Roberts. - 12/10/2021 9:47 AM [facility] for [facility] and OT, and wants to know if GG willfollow and sign? They want to start with patient on Monday. Verbal okay. Please Advise. documented in this encounter Plan of Treatment Not on file documented as of this encounter Visit Diagnoses Not on filedocumented in this encounter Care Teams Director Of Parks And Recreation Relationship Specialty Start Date End Date Christine Herzog MD [address] [facility] [address] [place] [address] PCP - General Internal Medicine 12/02/21 Trey Pinedo MD [address] [facility] [facility] [address] [place] [address] Consulting Physician Neurology 05/09/19 documented as of this encounter
--- OUTSIDE RECORDS SUMMARY | 2024-06-18 18:08 | XMS_ITS | Encounter Summary ---
Author Organization [facility] Medical Group Address [address] [place] [address] Care Team Providers Care Allocation Analyst Name Role Phone Wesley Em MD Primary Care Provider [phone] Trey Pinedo MD Unavailable [phone] Encounter Details Date Type Department Care Team (Late st Contact Info) Description 11/16/2021 Telephone [place] [facility] [address] [facility] [address] [place] [address] Wesley Em MD [address] [place] [address] [address] [place] [address] Social History Tobacco Use Types [...] than three times a week 12/31/2020 Attends Tenriism Services Not on file 12/31 Active Member [...] on file 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 POKER IN Gender Identity Not on file Sexual Orientation Straight 01/23/2021 10 :16 PM CDT documented as of this encounter Miscellaneous Notes * Telephone Encounter - Salena Leal MA - 11/17/2021 9:02 AM CDT Referral entered and sent electronically to [facility] ([facility] They will contact patient to schedule. * Telephone Encounter - Martha Sutton MA - 11/16/2021 4:54 PM CDT They did not care as long as it was in [place] * Telephone Encounter - Linda Jordan MA - 11/16/2021 4:01 PM CDT SB * Telephone Encounter - Salena Leal MA - 11/16/2021 3:53 PM CDT Which PT in [place]? There's a couple different PT agencies in [place] * Telephone Encounter - Martha Sutton MA - 11/16/2021 3:50 PM CDT Per verbal from Dr. Em refer for PT for peripheral neuropathy In [place] Son Ian verdin, and is contact for this documented in this encounter Plan of Treatment Not on file documented as of this encounter Visit Diagnoses Not on filedocumented in this encounter Care Teams Allocation Analyst Relationship Specialty Start Date End Date Wesley Em MD PCP - General 09/30/16 12/01/21 Trey Pinedo MD [address] [place] [address] [place] [address] Consulting Physician Neurology 05/09/19 documented as of this encounter
--- OUTSIDE RECORDS SUMMARY | 2024-06-18 18:08 | XMS_ITS | Encounter Summary ---
Author Organization [facility] Healthcare Address [address] [place] [address] Care Team Providers Care Adding Machine Mechanic Name Role Phone Wesley Em MD Primary Care Provider [phone] Trey Pinedo MD Unavailable [phone] Reason for Visit * Reason Comments OP Infusion Here for phlebotomy. Hematocrit 47.0% Encounter Details Date Type Department Care Team (Late st Contact Info) Description 09/14/2021 3:15 PM CDT Infusion [facility] [address] [place] [address] Polycythemia (Primary Dx) Social History Tobacco Use [...] than three times a week 12/31/2020 Attends Catholic Services Not on file 12/31 Active Member [...] points, staff should administer the PHQ-9) 0 06/03/2021 PRAPARE - Transportation Answer Date Re corded [...] on file 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 CHECK PILOT Gender Identity Not on file Sexual Orientation Straight 01/23/2021 10 :16 PM CDT documented as of this encounter Nursing Notes * Araseli Orellana RN - 09/14/2021 3:15 PM CDT Patient here in the ambulatory mode after having his CBC drawn and analyzed. His Hematocrit is 47.0% today. As per Dr. Figueroa's guidelines perform phlebotomy is Hematocrit is greater than 45%. Patientwas offered something to drink, but declined. After the Donormatic machine was started and calibrated, phlebotomy was started in patient's left, upper forearm at 1522.. Site covered with a 4x4 that was taped in place. At 15:44 phlebotomy stopped. A total of 320 ml of whole blood was obtained. A pressure dressing was placed over site with Coband. Patient was observed for fifteen minuets. His VS taken P: 74, R: 18, BP: 146/62 and O2 Saturation, 97%. Patient reported I feel fine . He denied dizziness, light headedness, or weakness. He was given a copy of his AVS, and left in stable condition, in the ambulatory mode. documented in this encounter Plan of Treatment Not on file documented as of this encounter Visit Diagnoses Diagnosis Polycythemia- Primary Polycythemia, secondary documented in this encounter Orders Nursing Count Last Ordered Date First Orde red Date ONCBCN THERAPEUTIC PHLEBOTOMY 1 09/14/2021 Appointment Requests Count Last Ordered Date Fi rst Ordered Date ONCBCN INFUSION APPT REQUEST 1 09/14/2021 documented in this encounter Care Teams Adding Machine Mechanic Relationship Specialty Start Date End Date Wesley Em MD PCP - General 09/30/16 12/01/21 Trey Pinedo MD [address] [place] [address] Consulting Physician Neurology 05/09/19 documented as of this encounter
--- OUTSIDE RECORDS SUMMARY | 2024-06-18 18:08 | XMS_ITS | Encounter Summary ---
Author Organization [facility] Healthcare Address [address] [place] [address] Care Team Providers Care Superintendent Recreation Name Role Phone Wesley Em MD Primary Care Provider [phone] Trey Pinedo MD Unavailable [phone] Reason for Visit * Reason Comments Phlebotomy Encounter Details Date Type Department Care Team (Late st Contact Info) Description 05/20/2021 3:15 PM PSYCHIATRIST Infusion [facility] [address] [place] [address] Polycythemia (Primary Dx) Social History Tobacco Use [...] than three times a week 12/31/2020 Attends Jewish Services Not on file 12/31 Active Member [...] more points, staff should administer the PHQ-9) 1 03/04/2021 PRAPARE - Transportation Answer Date Re corded [...] on file 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 PSYCHIATRIST Gender Identity Not on file Sexual Orientation Straight 01/23/2021 10 :16 PM CDT documented as of this encounter Last Filed Vital Signs Vital Sign Reading Time Taken Comments Blood Pressure 147/91 05/20/2021 2:46 PM PSYCHIATRIST Pulse 76 05/20/2021 2:46 PM PSYCHIATRIST Temperature - - Respiratory Rate 20 05/20/2021 2:46 PM PSYCHIATRIST Oxygen Saturation 97% 05/20/2021 2:46 PM PSYCHIATRIST Inhaled Oxygen Concentration - - Weight - - Height - - Body Mass Index - - documented in this encounter Nursing Notes * Millicent Amor RN - 05/20/2021 3:15 PM CST Patient presented to the infusion center today for a phlebotomy. Vitals and labs reviewed. HCT 48.5. Phlebotomy performed in the left arm. Tolerated well. Patient refused anything to eat or drink. Monitored for 15 minutes, repeat vitals stable. AVS printed and reviewed with patient. Patient had no further questions at this time and left in stable condition. HIATRIST documented in this encounter Plan of Treatment Not on file documented as of this encounter Visit Diagnoses Diagnosis Polycythemia- Primary Polycythemia, secondary documented in this encounter Orders Nursing Count Last Ordered Date First Orde red Date ONCBCN THERAPEUTIC PHLEBOTOMY 1 05/20/2021 Appointment Requests Count Last Ordered Date Fi rst Ordered Date ONCBCN INFUSION APPT REQUEST 1 05/20/2021 documented in this encounter Care Teams Superintendent Recreation Relationship Specialty Start Date End Date Wesley Em MD PCP - General 09/30/16 12/01/21 Trey Pinedo MD [address] [facility] [address] [place] [address] Consulting Physician Neurology 05/09/19 documented as of this encounter
--- OUTSIDE RECORDS SUMMARY | 2024-06-18 18:08 | XMS_ITS | Encounter Summary ---
Author Organization [facility] Medical Group Address [address] [place] [address] Care Team Providers Care Process Inspector Name Role Phone Wesley Em MD Primary Care Provider [phone] Trey Pinedo MD Unavailable [phone] Encounter Details Date Type Department Care Team (Late st Contact Info) Description 11/17/2021 Orders Only [place] [facility] [address] [facility] [facility] [address] [place] [address] Wesley Em MD [address] [facility] [address] [place] [address] Peripheral neuropathy, idiopathic (Primary Dx) Social History Tobacco Use Types [...] than three times a week 12/31/2020 Attends Anabaptism Services Not on file 12/31 Active Member [...] on file 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
--- OUTSIDE RECORDS SUMMARY | 2024-06-18 18:08 | XMS_ITS | Encounter Summary ---
Author Organization [facility] Address [address] [place] [address] Phone Care Team Providers Care Gravel Roofer Name Role Phone Wesley Em MD Primary Care Provider [phone] Trey Pinedo MD Unavailable [phone] Reason for Referral * MRI/CAT/PET Scan (Routine) - Closed Specialty Diagnoses / Procedures Referred By Jomar villela Referred To Contact Radiology Diagnoses Carotid artery disease (HCC) PVD (peripheral vascular disease) (HCC) Procedures CTA Head Neck W WO Contrast Lan Genao MD Phone: tel: fax: [address] [address] Referral ID Status Reason Start Date Expiration Date Visits Re quested Visits Authorized [id number] Closed 05/25/2021 06/24/2022 1 1 EDGE PAINTER * Diagnostic Imaging (Routine) - Closed Specialty Diagnoses / Procedures Referred By Jomar villela Referred To Contact Diagnoses Carotid artery disease (HCC) PVD (peripheral vascular disease) (HCC) Procedures US Arterial Doppler Lower Extremity Bilateral Lan Genao MD Phone: tel: fax: [facility] (All Locations) Referral ID Status Reason Start Date Expiration Date Visits Re quested Visits Authorized [id number] Closed 05/25/2021 08/02/2022 99 99 EDGE PAINTER Reason for Visit * Consultation (Routine) - Closed Specialty Diagnoses / Procedures Referred By Contac t Referred To Contact Vascular Surgery Diagnoses Carotid artery disease (HCC) Wesley Em MD [address] [place] [address] [place] [address] Phone: tel: fax: Lan Genao MD [address] [facility] [address] [place] [address] Phone: tel: fax: Referral ID Status Reason Start Date Expiration Date V isits Requested Visits Authorized [id number] Closed Specialty Services Required 04/27/2021 05/27/2022 12 12 Encounter Details Date Type Department Care Team (Late st Contact Info) Description 05/25/2021 3:00 PM SKI EDGE PAINTER Office Visit [facility] Surgery [address] [facility] [place] [facility] 8th [place] [address] [place] [address] aLn Genao MD [address] [facility] [address] [place] [address] PVD (peripheral vascular disease) (CMS/HCC) (HCC) (Primary Dx); Carotid artery disease (CMS/HCC) (HCC) Social History Tobacco Use Types Packs/Day [...] than three times a week 12/31/2020 Attends [employer] Services Not on file 12/31 Active Member [...] on file 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 SKI EDGE PAINTER Gender Identity Not on file Sexual Orientation Straight 01/23/2021 10 :16 PM CDT documented as of this encounter Last Filed Vital Signs Vital Sign Reading Time Taken Comments Blood Pressure 224/84 05/25/2021 3:02 PM SKI EDGE PAINTER Pulse 67 05/25/2021 3:02 PM SKI EDGE PAINTER Temperature - - Respiratory Rate - - Oxygen Saturation 97% 05/25/2021 3:02 PM SKI EDGE PAINTER Inhaled Oxygen Concentration - - Weight 86.2 kg (190 lb 0.6 oz) 05/25/2021 3:02 P M SKI EDGE PAINTER Height 177.8 cm (5' 10 ) 05/25/2021 3:02 PM SKI EDGE PAINTER Body Mass Index 27.27 05/25/2021 3:02 PM SKI EDGE PAINTER documented in this encounter Progress Notes * Delma Ibarra MD - 05/25/2021 3:00 PM CST Patient: Verna Zuniga Date of : 1945 Date of Service: 05/25/2021 CONSULTATION Consultation at the request of Wesley Em MD for an opinion regarding carotid artery disease and peripheral vascular disease I have personally taken a history, examined the patient and determined the assessment and plan as outlined below. CHIEF COMPLAINT: My feet HISTORY OF PRESENT ILLNESS: Verna Zuniga is a 75 y.o. male patient of Wesley Em MD for concern for left carotid artery occlusion. Patient and his son state that they also have concerns regarding his peripheral circulation. The patient denies any history of stroke, TIA or amaurosis fugax. He reports a remote history of a heart attack requiring PCI roughly 15 years ago. He does not followwith a cone tender. He states his main concern is his poor circulation to his feet. He denies any claudication, but states he does not walk very far due to his knee replacements. He denies any numbness or tingling in his feet. He denies any foot wounds. He denies any history of rest pain. Past Medical History: Diagnosis Date ??? Mayo esophagus ??? Chronic obstructive pulmonary disease (CMS/HCC) (HCC) COPD ??? Diabetes mellitus (HCC) Diabetes ??? GERD (gastroesophageal reflux disease) ??? HX OTHER MEDICAL 2013 Heart stents ??? HX OTHER MEDICAL urinary stent s placed ??? Hyperlipidemia Hyperlipidemia ??? Hypertension Hypertension Past Surgical History: Procedure Laterality Date ??? COLONOSCOPY 2009 ??? OTHER SURGICAL HISTORY 2002 Carpal tunnel release both ??? OTHER SURGICAL HISTORY karen total knees ??? OTHER SURGICAL HISTORY 2012 Heart stents: [facility] October/October Family History Problem Relation Age of Onset ??? Hypertension Mother Hypertension; ??? Heart disease Mother Heart disease; ??? Diabetes Mother Diabetes mellitus; ??? Stroke Mother 66 Stroke; ??? Cancer Mother Cancer; ??? Alzheimer's disease Father Alzheimer's Disease; Social History Socioeconomic History ??? Marital status: Spouse name: Not on file ??? Number of children: Not on file ??? Years of education: Not on file ??? Highest education level: Not on file Occupational History ??? Not on file Tobacco Use ??? Smoking status: Former Smoker Packs/day: 0.50 Years: 50.00 Pack years: 25.00 Types: Cigarettes Quit date: 2009 Years since quittin.9 ??? Smokeless tobacco: Never Used Vaping Use [...] than three times a week ??? Attends Episcopalian Services: Not on file ??? Active Member of Clubs or Organizations: Not on file ??? Attends Club or Organization Meetings: Not on file ??? Marital Status: Intimate Partner Violence: Not on file Housing Stability: Not on file Allergies as of 05/25/2021 - Reviewed 05/25/2021 Allergen Reaction Noted ??? Ciprofloxacin Rash ??? Apple The patient???s vascular health history was reviewed and signed by me dated 05/25/2021. PHYSICAL EXAMINATION: VITAL SIGNS: Vitals BP (!) 224/84 Pulse 67 Ht 177.8 cm (5' 10 ) Wt 86.2 kg (190 lb 0.6 oz) SpO2 97% BMI 27.27 kg/m?? HENT: Normocephalic and atraumatic. Extraocular movements are intact. Moist mucus membranes. EYES: Pupils are equal and reactive to light bilaterally. NECK: Supple with no lymphadenopathy CHEST: Symmetric chest expansion with no accessory muscle usage HEART: Regular rate and rhythm. ABDOMEN: Soft, nontender, nondistended. VASCULAR: Palpable right femoral pulse. DP/PT's non-palpable bilaterally. MUSCULOSKELETAL: Warm, well perfused NEURO: Grossly intact motor and sensory exam. SKIN: No visible rashes. No wounds noted. VASCULAR LABS: EXAM DESCRIPTION: US ARTERIAL DOPPLER LOWER EXTREMITY BILATERAL ?? REASON FOR STUDY: PAD. Former smoker. Quit 2008. Stents in heart. Patient states he has no leg pain.Duration: N/A ?? TECHNIQUE: Systolic pressures recorded upper lower extremities with ankle-brachial indices calculated. Spectral waveforms recorded at the dorsalis pedis and posterior tibial positions of the ankle. ?? COMPARISON: None available ?? FINDINGS: ?? Right leg: ?? Right-sided ankle-brachial index is 1.12. ?? Right-sided spectral Doppler waveforms demonstrate a dampened biphasic to monophasic pattern suggesting moderately severe large vessel arterial insufficiency at rest. ?? Left leg: ?? Left-sided ankle-brachial index is 0.97. ?? Left-sided spectral Doppler waveform also demonstrates dampened biphasic to monophasic pattern suggesting large vessel arterial insufficiency at rest. ? IMPRESSION: Dampened waveforms suggest moderately severe large vessel arterial insufficiency at rest bilateral lower extremities, despite normal ankle-brachial indices. ?? Consider duplex Doppler, CT or MR arteriogram to better define. ? THIS IS AN ELECTRONICALLY VERIFIED FINAL REPORT 02/09/2021 8:15 AM - Electronically signed by Emil Pyle M.D. RADIOLOGY: I personally reviewed the head and neck CTA which shows a grossly patent left internal carotid artery, tortuous in nature ASSESSMENT/PLAN: In my opinion, Verna Zuniga is a 75 y.o. male patient who presents for evaluation of concern for left carotid artery occlusion as well as evaluation for peripheral vascular disease. Will repeat head and neck CTA in 1 year, as the duplex showing occluded left ICA is limited by the tortuosity of the ICA seen on CT. Regarding his PVD, as patient has no wounds, denies claudication and rest pain, would recommend maximal medical therapy at this time with repeat studies in 1 year. Discussed maximal medical therapy as the best avenue for amputation avoidance at this degree, he and his son understand to call for anynew wounds or development of symptoms that can ramiro attributed to PAD. Cosigned by Lan Genao MD at 05/25/2021 8:51 PM SKI EDGE PAINTER EDGE PAINTER documented in this encounter Plan of Treatment Not on file documented as of this encounter Results * US Arterial Doppler Lower Extremity Bilateral (07/12/2022 3:19 PM SKI EDGE PAINTER) Anatomical Region Laterality Modality Vascular Bilateral Ultrasound 07/12/2022 1:57 PM SKI EDGE PAINTER Narrative 07/12/2022 3:25 PM SKI EDGE PAINTER [facility] - Department of Vascular Surgery, Vascular Laboratory [address] [place] [address] Lower Extremity Arterial Doppler Report Patient Name: VERNA ZUNIGA : 1945 Study Date: 07/12/2022 1:57:00 PM Gender: M Tech: Location: [facility] Ref.Provider: LAN GENAO Quality: Adequate Order Provider: LAN GENAO Procedures: Arterial Report: Bilateral lower extremity arterial Doppler exam at rest. Indications: PVD (peripheral vascular disease). Measurements: Right - ?Left - ? Measurement ?Value ?Units ?Measurement ?Value ?Units ? Rt Brachial Pressure ? 212 ?mmHg ? Lt Brachial Pressure ? 219 ?mmHg ? Rt FOUNTAIN MANAGER Pressure ?209 ?mmHg ? Lt FOUNTAIN MANAGER Pressure ?236 ?mmHg ? Rt DPA Pressure [...] - ?Left - ? - Findings: Performing Senior Embedded Software Engineer: Ame Goldstein RVT/ Nayeli Reyes (student). Right [...] above. Electronically Signed By: Praful Quiros MD [facility] 2022-07-12 15:25:48 SKI EDGE PAINTER CC: CC: Procedure Note Praful Quiros MD - 07/12/2022 [facility] - Department of Vascular Surgery,Vascular Laboratory [address] [place] [address] Lower Extremity Arterial Doppler Report Patient Name: VERNA ZUNIGAPatient ID: [id number] : [id number] Date: 07/12/2022 1:57:00 PM Gender: MAccession #: [id number] Tech: Location: [facility] Ref.Provider: LAN GENAOQuality: Adequate Order Provider: LAN GENAO Procedures: Arterial Report: Bilateral lower extremity arterial Doppler exam at rest. Indications: PVD (peripheral vascular disease). Measurements: Right - Left - Measurement Value Units Measurement ValueUnits Rt Brachial Pressure 212 mmHg Lt Brachial Pressure 219mmHg Rt FOUNTAIN MANAGER Pressure 209 mmHg Lt FOUNTAIN MANAGER Pressure 236mmHg Rt DPA Pressure 202 mmHg [...] Right - Left - - Findings: Performing Senior Embedded Software Engineer: Ame Goldstein RVT/ Nayeli Reyes (student). Right [...] above. Electronically Signed By: Praful Quiros MD [facility] 2022-07-12 15:25:48 SKI EDGE PAINTER CC: CC: us Lan Genao MD IM US PROCEDURES Final Re sult * CTA Head Neck W WO Contrast (07/12/2022 1:44 PM SKI EDGE PAINTER) Anatomical Region Laterality Modality Head and Neck N/A Computed Tomogra phy 07/12/2022 3:06 PM SKI EDGE PAINTER Impressions 07/12/2022 4:43 PM SKI EDGE PAINTER 1. ??No acute intracranial findings. 2. ??Unchanged [...] Simon Redd M.D. Narrative 07/12/2022 4:43 PM SKI EDGE PAINTER EXAMINATION: Computed tomography angiography (CTA) of the [...] airway is widely patent. Angiographic findings: The [id number] is complete. The left vertebral artery is [...] airway is widely patent. Angiographic findings: The iawfzc-[id number] is complete. The left vertebral artery is [...] it. Electronically signed by: Simon Redd M.D. Lan Genao MD [facility] CT PROCEDURES Final Re sult documented in this encounter Visit Diagnoses Diagnosis PVD (peripheral vascular disease) (HCC)- Primary Unspecified peripheral vascular disease Carotid artery disease (HCC) Unspecified disorders of arteries and arterioles Carotid artery disease (HCC) Unspecified disorders of arteries and arterioles PVD (peripheral vascular disease) (HCC) Unspecified peripheral vascular disease Carotid artery disease (HCC) Unspecified disorders of arteries and arterioles PVD (peripheral vascular disease) (HCC) Unspecified peripheral vascular disease documented in this encounter Orders Outpatient Referral Count Last Ordered Date Fir st Ordered Date AMB REFERRAL TO VASCULAR SURGERY 1 05/25/20 21 documented in this encounter Care Teams Gravel Roofer Relationship Specialty Start Date End Date Wesley Em MD PCP - General 09/30/16 12/01/21 Trey Pinedo MD [address] [place] [address] [address] [facility] [place] [address] Consulting Physician Neurology 05/09/19 documented as of this encounter
--- OUTSIDE RECORDS SUMMARY | 2024-06-18 18:08 | XMS_ITS | Encounter Summary ---
Author Organization [facility] Address [address] [place] [address] Care Team Providers Care Mechanical Assembly Technician Name Role Phone Wesley Em MD Primary Care Provider [phone] Trey Pinedo MD Unavailable [phone] Encounter Details Date Type Department Care Team (Late st Contact Info) Description 11/03/2021 Telephone [facility] [address] [facility] [address] [place] [address] Wesley Em MD [address] [place] [address] [address] [place] [address] Social History Tobacco Use Types [...] on file 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 OUTSOLE ROUNDER Gender Identity Not on file Sexual Orientation Straight 01/23/2021 10 :16 PM CDT documented as of this encounter Miscellaneous Notes * Telephone Encounter - Salena Leal MA - 11/03/2021 4:04 PM CDT Opened in error documented in this encounter Plan of Treatment Not on file documented as of this encounter Visit Diagnoses Not on filedocumented in this encounter Care Teams Mechanical Assembly Technician Relationship Specialty Start Date End Date Wesley Em MD PCP - General 09/30/16 12/01/21 Trey Pinedo MD [address] [place] [address] [place] [address] Consulting Physician Neurology 05/09/19 documented as of this encounter
--- OUTSIDE RECORDS SUMMARY | 2024-06-18 18:08 | XMS_ITS | Encounter Summary ---
Author Organization [facility] Address [address] [place] [address] Care Team Providers Care Washroom Attendant Name Role Phone Trey Pinedo MD Unavailable [phone] Christine Herzog MD Primary Care Provide r Encounter Details Date Type Department Care Team (Latest Contact Info) Description 12/08/2021 5:17 PM CDT - 12/08/2021 8:30 PM CDT Hospital Encounter [facility] [address] [place] [address] Discharge Disposition: Discharge to home or self [...] than three times a week 12/31/2020 Attends [employer] Services Not on file 12/31 Active Member [...] on file 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 SWATCH FOLDER Gender Identity Not on file Sexual Orientation Straight 01/23/2021 10 :16 PM CDT documented as of this encounter Medications at Time of Discharge aspirin 81 mg tablet Take one by mouth one time per day 0 0 06/27/2008 oxyCODONE (ROXICODONE) 5 mg immediate release tabletIndications :Pain Take 1 tablet (5 mg total) by mouth every 8 (eight) hours as needed for pain for up to 5 days 15 tablet 12/10/2021 2 atorvastatin (LIPITOR) 40 mg tablet Take 1 tablet (40 mg total) by mouth daily 30 tablet 5 11/05/2021 2 clopidogreL (PLAVIX) 75 mg tablet Take 1 tablet (75 mg total) by mouth daily 90 tablet 3 11/05/2021 3 finasteride (PROSCAR) 5 mg tabletIndications :benign prostatic hyperplasia with lower urinary tract sx Take 1 tablet (5 mg total) by mouth daily 90 tablet 3 11/05/2021 3 lidocaine (LIDODERM) 5 % Place 1 patch on the skin daily Remove & discard patch within 12 hours or as directed by . 30 patch 12/11/2021 2 metoprolol tartrate (LOPRESSOR) 25 mg immediate release tablet TAKE 1 TABLET BY MOUTH TWICE DAILY 180 tablet 1 11/15/2021 2 metoprolol XL (TOPROL-XL) 50 mg extended release tablet Take 1 tablet (50 mg total) by mouth daily 90 tablet 3 11/05/2021 3 oxyCODONE (ROXICODONE) 5 mg immediate release tabletIndications :Pain Take 1 tablet (5 mg total) by mouth every 8 (eight) hours as needed for pain for up to 5 days 15 tablet 12/10/2021 2 documented as of this encounter Discharge Disposition Disposition Code Departure Means Destination Discharge to home or self care documented in this encounter Plan of Treatment Not on file documented as of this encounter Procedures Procedure Name Priority Date/Time Associated Diagnosis Comments XR RIBS RIGHT W PA CHEST ED 12/08/2021 6:14 PM CDT documented in this encounter Results * XR Ribs Right W PA Chest 3 or More Views (12/08/2021 6:14 PM CDT) Anatomical Region Laterality Modality Rib, Chest Right Computed Radiogr aphy 12/08/2021 6:23 PM CDT Narrative 12/08/2021 6:27 PM CDT EXAM DESCRIPTION: ?? XR RIBS RIGHT W PA CHEST REASON FOR STUDY: ?? pain after fall last week ?? c/o mid right back and right rip pain after falling getting out of the bath last week. Pt reports dizziness. ??No prior injury to right side ribs but has had fractured ribs on left side in the past. ?? TECHNIQUE: Frontal view ??of the chest and ?? two ??additional views of the ?? right ??ribs acquired. COMPARISON: ?? Chest radiograph 05/08/2019 FINDINGS: LUNGS/PLEURA: ?? Minimal atelectasis at each lung base. ??No discrete consolidation. ??No effusion or pneumothorax. HEART/MEDIASTINUM: ?? Cardiac silhouette and mediastinal contours are within normal limits. ??Atherosclerotic calcification of the thoracic aorta. RIBS: ?? No definite acute displaced rib fracture. ??Evaluation of the inferior ribs limited due to overlapping soft tissue structures. HARDWARE/LINES/TUBES: ?? None. BONES: ?? There is thoracic spondylosis and degenerative disc disease. ?? Scoliotic curvature of the thoracolumbar spine is noted. ??Evaluation of the thoracic vertebral bodies limited on this study. OTHER: ?? No other significant finding. IMPRESSION: ?? 1. ?? No consolidation, effusion or pneumothorax. 2. ?? No appreciable displaced right rib fracture. ??Inferior ribs limited in assessment due to overlapping soft tissue structures. 3. ?? Scoliotic curvature, spondylosis and degenerative disc disease involving the thoracic and lumbar spine THIS IS AN ELECTRONICALLY VERIFIED FINAL REPORT 12/08/2021 6:27 PM - Electronically signed by ??Ysabel Bauer M.D. TB: TB D: ??12/08/2021 6:27 PM T: ??12/08/2021 6:27 PM Report ID: [id number] Reading Location: ??[id number] Procedure Note VillatoroYsabel MD - 12/08/2021 EXAM DESCRIPTION: XR RIBS RIGHT W PA CHEST REASON FOR STUDY: pain after fall last week c/o mid right back and right rip pain after falling getting out of thebath last week. Pt reports dizziness. No prior injury to right side ribs buthas had fractured ribs on left side in the past. TECHNIQUE: Frontal view of the chest and two additional views of the right ribs acquired. COMPARISON: Chest radiograph 05/08/2019 FINDINGS: LUNGS/PLEURA: Minimal atelectasis at each lung base. No discrete consolidation. No effusion or pneumothorax. HEART/MEDIASTINUM: Cardiac silhouette and mediastinal contours arewithin normal limits. Atherosclerotic calcification of the thoracic aorta. RIBS: No definite acute displaced rib fracture. Evaluation of theinferior ribs limited due to overlapping soft tissue structures. HARDWARE/LINES/TUBES: None. BONES: There is thoracic spondylosis and degenerative disc disease. Scoliotic curvature of the thoracolumbar spine is noted. Evaluation ofthe thoracic vertebral bodies limited on this study. OTHER: No other significant finding. IMPRESSION: 1. No consolidation, effusion or pneumothorax. 2. No appreciable displaced right rib fracture. Inferior ribs limitedin assessment due to overlapping soft tissue structures. 3. Scoliotic curvature, spondylosis and degenerative disc diseaseinvolving the thoracic and lumbar spine THIS IS AN ELECTRONICALLY VERIFIED FINAL REPORT 12/08/2021 6:27 PM - Electronically signed by Ysabel Bauer M.D. TB: TB Report ID: [id number] Reading Location: [place] [address] us Saleem Garber MD IMG XR PROCEDURES Final Re sult documented in this encounter Visit Diagnoses Not on filedocumented in this encounter Care Teams Washroom Attendant Relationship Specialty Start Date End Date Christine Herzog MD [address] [facility] [address] [place] [address] PCP - General Internal Medicine 12/02/21 Trey Pinedo MD [address] [facility] [address] [place] [address] Consulting Physician Neurology 05/09/19 documented as of this encounter
--- OUTSIDE RECORDS SUMMARY | 2024-06-18 18:08 | XMS_ITS | Encounter Summary ---
Author Organization [facility] Healthcare Address [address] [place] [address] Care Team Providers Care Swiss Type Screw Machine Operator Name Role Phone Wesley Em MD Primary Care Provider [phone] Trey Pinedo MD Unavailable [phone] Encounter Details Date Type Department Care Team (Late st Contact Info) Description 07/20/2021 3:00 PM WAXING MACHINE OPERATOR HELPER Lab [facility] Physicians 4 [facility] [address] [place] [address] Polycythemia Social History Tobacco Use Types Packs/Day [...] than three times a week 12/31/2020 Attends [employer] Services Not on file 12/31 Active Member [...] on file 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 WAXING MACHINE OPERATOR HELPER Gender Identity Not on file Sexual Orientation Straight 01/23/2021 10 :16 PM CDT documented as of this encounter Last Filed Vital Signs Vital Sign Reading Time Taken Comments Blood Pressure 183/79 07/20/2021 3:03 PM WAXING MACHINE OPERATOR HELPER Pulse 73 07/20/2021 3:03 PM WAXING MACHINE OPERATOR HELPER Temperature 35.7 ??C (96.3 ??F) 07/20/2021 3:03 PM CS T Respiratory Rate 20 07/20/2021 3:03 PM WAXING MACHINE OPERATOR HELPER Oxygen Saturation 96% 07/20/2021 3:03 PM WAXING MACHINE OPERATOR HELPER Inhaled Oxygen Concentration - - Weight 84 kg (185 lb 3.2 oz) 07/20/2021 3:03 PM WAXING MACHINE OPERATOR HELPER Height 177.8 cm (5' 10 ) 07/20/2021 3:03 PM WAXING MACHINE OPERATOR HELPER Body Mass Index 26.57 07/20/2021 3:03 PM WAXING MACHINE OPERATOR HELPER documented in this encounter Plan of Treatment Not on file documented as of this encounter Procedures Procedure Name Priority Date/Time Associated Diagnosis Comments DIFFERENTIAL AUTO Routine 07/20/2021 2:5 5 PM WAXING MACHINE OPERATOR HELPER Polycythemia CBC WITH AUTO DIFFERENTIAL Routine 07/20/2021 2:55 PM WAXING MACHINE OPERATOR HELPER Polycythemia documented in this encounter Results * Differential, auto (07/20/2021 2:55 PM WAXING MACHINE OPERATOR HELPER) Neutrophil abs 3.2 1.7 - 6.5 K/cumm [facility] ([place]) Imm gran abs Not Measured 0.0 - 0.1 K/cumm [facility] ([place]) Lymphocyte abs 1.1 0.8 - 3.3 K/cumm [facility] ([place]) Monocyte abs 0.5 0.2 - 0.8 K/cumm [facility] ([place]) Eosinophil abs 0.2 0.0 - 0.5 K/cumm [facility] ([place]) Basophil abs 0.1 0.0 - 0.1 K/cumm [facility] ([place]) Neutrophil pct 64.2 % [facility] ([place]) Comment: Interpretive Data Percent cell count reference ranges are not reported, since discordance with absolute values may lead to misinterpretation of CBC data. Current Interpretive Data was last revised on 2017. Imm gran pct Not Measured % [facility] ([place]) Comment: Interpretive Data Percent cell count reference ranges are not reported, since discordance with absolute values may lead to misinterpretation of CBC data. Current Interpretive Data was last revised on 2017. Lymphocyte pct 21.5 % [facility] ([place]) Comment: Interpretive Data Percent cell count reference ranges are not reported, since discordance with absolute values may lead to misinterpretation of CBC data. Current Interpretive Data was last revised on 2017. Monocyte pct 8.9 % [facility] ([place]) Comment: Interpretive Data Percent cell count reference ranges are not reported, since discordance with absolute values may lead to misinterpretation of CBC data. Current Interpretive Data was last revised on 2017. Eosinophil pct 4.2 % [facility] ([place]) Comment: Interpretive [...] Data was last revised on 2017. Blood 07/20/2021 2:55 PM WAXING MACHINE OPERATOR HELPER 07/20/2021 3:00 PM WAXING MACHINE OPERATOR HELPER Chintan Figueroa MD LAB BLOOD ORDERABLES Final Re sult [facility] ([place]) 1 [facility] [place] [address] * CBC with auto differential (07/20/2021 2:55 PM WAXING MACHINE OPERATOR HELPER) WBC 5.0 3.8 - 9.9 K/cumm [facility] ([place]) Hgb 16.7 13.0 - 17.5 g/dL [facility] ([place]) Hct 49.6 38.9 - 50.3 % [facility] ([place]) Plt 159 150 - 400 K/cumm [facility] ([place]) MPV 10.8 9.1 - 12.3 fL [facility]) RBC 5.64 4.30 - 5.80 M/cumm [facility] ([place]) MCV 87.9 81.3 - 96.4 fL [facility] ([place]) MCH 29.6 27.1 - 33.3 pg [facility] ([place]) MCHC 33.7 32.3 - 35.7 g/dL [facility] ([place]) RDW CV 13.4 11.1 - 14.9 % [facility] ([place]) RDW SD 42.5 35.7 - 48.1 fL [facility] ([place]) NRBC abs Not Measured 0.00 - 0.01 K/cumm [facility] ([place]) Blood 07/20/2021 2:55 PM WAXING MACHINE OPERATOR HELPER 07/20/2021 3:00 PM WAXING MACHINE OPERATOR HELPER Chintan Figueroa MD LAB BLOOD ORDERABLES Final Re sult [facility] ([place]) 1 [facility] [place] [address] documented in this encounter Visit Diagnoses Diagnosis Polycythemia Polycythemia, secondary documented in this encounter Orders Appointment Requests Count Last Ordered Date Fi rst Ordered Date ONCBCN LAB APPOINTMENT 1 07/20/2021 documented in this encounter Care Teams Swiss Type Screw Machine Operator Relationship Specialty Start Date End Date Wesley Em MD PCP - General 09/30/16 12/01/21 Trey Pinedo MD [address] [place] [address] [address] [place] [address] Consulting Physician Neurology 05/09/19 documented as of this encounter
--- OUTSIDE RECORDS SUMMARY | 2024-06-18 18:08 | XMS_ITS | Encounter Summary ---
Author Organization [facility] Healthcare Address [address] [place] [address] Care Team Providers Care Bee Raiser Name Role Phone Wesley Em MD Primary Care Provider Trey Pinedo MD Unavailable [phone] Encounter Details Date Type Department Care Team (Late st Contact Info) Description 06/22/2021 3:00 PM UNDERGROUND UTILITY LOCATOR Lab [facility] Physicians 4 [facility] [address] [place] [address] Polycythemia Social History Tobacco Use Types Packs/Day [...] on file 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 UNDERGROUND UTILITY LOCATOR Gender Identity Not on file Sexual Orientation Straight 01/23/2021 10 :16 PM CDT documented as of this encounter Last Filed Vital Signs Vital Sign Reading Time Taken Comments Blood Pressure 151/90 06/22/2021 2:11 PM UNDERGROUND UTILITY LOCATOR Pulse 69 06/22/2021 2:11 PM UNDERGROUND UTILITY LOCATOR Temperature 35.8 ??C (96.4 ??F) 06/22/2021 2:11 PM CS T Respiratory Rate 20 06/22/2021 2:11 PM UNDERGROUND UTILITY LOCATOR Oxygen Saturation 97% 06/22/2021 2:11 PM UNDERGROUND UTILITY LOCATOR Inhaled Oxygen Concentration - - Weight 83.9 kg (185 lb) 06/22/2021 2:11 PM UNDERGROUND UTILITY LOCATOR Height 177.8 cm (5' 10 ) 06/22/2021 2:11 PM UNDERGROUND UTILITY LOCATOR Body Mass Index 26.54 06/22/2021 2:11 PM UNDERGROUND UTILITY LOCATOR documented in this encounter Plan of Treatment Not on file documented as of this encounter Procedures Procedure Name Priority Date/Time Associated Diagnosis Comments DIFFERENTIAL AUTO Routine 06/22/2021 2:0 5 PM UNDERGROUND UTILITY LOCATOR Polycythemia CBC WITH AUTO DIFFERENTIAL Routine 06/22/2021 2:05 PM UNDERGROUND UTILITY LOCATOR Polycythemia documented in this encounter Results * Differential, auto (06/22/2021 2:05 PM UNDERGROUND UTILITY LOCATOR) Neutrophil abs 4.5 1.7 - 6.5 K/cumm [facility] ([place]) Imm gran abs Not Measured 0.0 - 0.1 K/cumm [facility] ([place]) Lymphocyte abs 1.3 0.8 - 3.3 K/cumm [facility] ([place]) Monocyte abs 0.7 0.2 - 0.8 K/cumm [facility] ([place]) Eosinophil abs 0.3 0.0 - 0.5 K/cumm [facility] ([place]) Basophil abs 0.1 0.0 - 0.1 K/cumm [facility] ([place]) Neutrophil pct 64.6 % [facility] [...] was last revised on 2017. Lymphocyte pct 19.0 % [facility] ([place]) Comment: Interpretive Data Percent cell count reference ranges are not reported, since discordance with absolute values may lead to misinterpretation of CBC data. Current Interpretive Data was last revised on 2017. Monocyte pct 10.5 % [facility] ([place]) Comment: Interpretive Data Percent cell count reference ranges are not reported, since discordance with absolute values may lead to misinterpretation of CBC data. Current Interpretive Data was last revised on 2017. Eosinophil pct 4.5 % [facility] ([place]) Comment: Interpretive Data Percent cell count reference ranges are not reported, since discordance with absolute values may lead to misinterpretation of CBC data. Current Interpretive Data was last revised on 2017. Basophil pct 1.4 % [facility] ([place]) Comment: Interpretive Data Percent cell count reference ranges are not reported, since discordance with absolute values may lead to misinterpretation of CBC data. Current Interpretive Data was last revised on 2017. Blood 06/22/2021 2:05 PM UNDERGROUND UTILITY LOCATOR 06/22/2021 2:10 PM UNDERGROUND UTILITY LOCATOR Chintan Figueroa MD LAB BLOOD ORDERABLES Final Re sult [facility] ([place] 1 [facility] [place] [address] * CBC with auto differential (06/22/2021 2:05 PM UNDERGROUND UTILITY LOCATOR) WBC 6.9 3.8 - 9.9 K/cumm [facility] ([place]) Hgb 17.1 13.0 - 17.5 g/dL [facility] ([place]) Hct 48.4 38.9 - 50.3 % [facility] ([place]) Plt 168 150 - 400 K/cumm [facility] ([place]) MPV 11.0 9.1 - 12.3 fL [facility] ([place]) RBC 5.58 4.30 - 5.80 M/cumm [facility] ([place]) MCV 86.7 81.3 - 96.4 fL [facility] ([place]) MCH 30.6 27.1 - 33.3 pg [facility] ([place]) MCHC 35.3 32.3 - 35.7 g/dL [facility] ([place]) RDW CV 12.7 11.1 - 14.9 % [facility] ([place]) RDW SD 39.8 35.7 - 48.1 fL [facility] ([place]) NRBC abs Not Measured 0.00 - 0.01 K/cumm [facility] ([place]) Blood 06/22/2021 2:05 PM UNDERGROUND UTILITY LOCATOR 06/22/2021 2:10 PM UNDERGROUND UTILITY LOCATOR Chintan Figueroa MD LAB BLOOD ORDERABLES Final Re sult [facility] ([place]) 1 [facility] [place] [place] [address] documented in this encounter Visit Diagnoses Diagnosis Polycythemia Polycythemia, secondary documented in this encounter Orders Appointment Requests Count Last Ordered Date Fi rst Ordered Date ONCBCN LAB APPOINTMENT 1 06/22/2021 documented in this encounter Care Teams Bee Raiser Relationship Specialty Start Date End Date Wesley Em MD PCP - General 09/30/16 12/01/21 Trey Pinedo MD [address] [place] [address] [address] [facility] [place] [address] Consulting Physician Neurology 05/09/19 documented as of this encounter
--- OUTSIDE RECORDS SUMMARY | 2024-06-18 18:08 | XMS_ITS | Encounter Summary ---
Author Organization [facility] Healthcare Address [address] [place] [address] Care Team Providers Care Executive Associate Name Role Phone Wesley Em MD Primary Care Provider [phone] Trey Pinedo MD Unavailable [phone] Reason for Visit * Reason Comments Phlebotomy Encounter Details Date Type Department Care Team (Late st Contact Info) Description 07/20/2021 3:15 PM WAXER TENDER Infusion [facility] 4 [facility] [address] [place] [address] Polycythemia Social History Tobacco Use Types Packs/Day [...] than three times a week 12/31/2020 Attends Hinduism Services Not on file 12/31 Active Member [...] on file 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 WAXER TENDER Gender Identity Not on file Sexual Orientation Straight 01/23/2021 10 :16 PM CDT documented as of this encounter Last Filed Vital Signs Vital Sign Reading Time Taken Comments Blood Pressure 137/77 07/20/2021 3:48 PM WAXER TENDER Pulse 73 07/20/2021 3:48 PM WAXER TENDER Temperature 36.3 ??C (97.3 ??F) 07/20/2021 3:48 PM CS T Respiratory Rate - - Oxygen Saturation - - Inhaled Oxygen Concentration - - Weight - - Height - - Body Mass Index - - documented in this encounter Nursing Notes * Millicent Amor, RN - 07/20/2021 3:15 PM CST Patient presented to the infusion center today for an possible phlebotomy. Labs reviewed. Hct 46.6.Phlebotomy per parameters. 248ml obtained unable to obtain all 500ml, Monika, ANTIQUE AUTO MUSEUM MAINTENANCE WORKER aware and stated for patient to just return at his next scheduled appointment. Patient observed for 15 mintues following, vitals stable. AVS printed and reviewed with patient. Patient had no further questions at this time and left in stable condition. R TENDER documented in this encounter Plan of Treatment Not on file documented as of this encounter Visit Diagnoses Diagnosis Polycythemia Polycythemia, secondary documented in this encounter Orders Appointment Requests Count Last Ordered Date Fi rst Ordered Date ONCBCN INFUSION APPT REQUEST 1 07/20/2021 documented in this encounter Care Teams Executive Associate Relationship Specialty Start Date End Date Wesley Em MD PCP - General 09/30/16 12/01/21 Trey Pinedo MD 4 [facility] [address] [place] [address] [address] Consulting Physician Neurology 05/09/19 documented as of this encounter
--- OUTSIDE RECORDS SUMMARY | 2024-06-18 18:08 | XMS_ITS | Encounter Summary ---
Author Organization [facility] Address [address] [facility] [address] [place] [address] Care Team Providers Care Deliverer Food Name Role Phone Wesley Em MD Primary Care Provider [phone] Trey Pinedo MD Unavailable [phone] Encounter Details Date Type Department Care Team (Late st Contact Info) Description 06/03/2021 Orders Only [facility] 2 [facility] [address] [place] [address] Wesley Em MD 2 [facility] [address] [place], [place] [id number] 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) (Primary Dx); Screening PSA (prostate specific antigen) Social History Tobacco Use Types Packs/Day Years [...] on file 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 BOX SPRING FRAME BUILDER Gender Identity Not on file Sexual Orientation Straight 01/23/2021 10 :16 PM CDT documented as of this encounter Plan of Treatment Not on file documented as of this encounter Results * Magnesium (10/06/2021 12:28 PM CDT) Magnesium 2.0 1.4 - 2.5 mg/dL [facility] ([place]) Blood 10/06/2021 12:2 8 PM CDT 10/06/2021 12:40 PM CDT us Wesley Em MD LAB BLOOD ORDERABLES Final Res ult [facility] ([place]) 1 [facility] Department [place] [address] * (ABNORMAL) Hepatic function panel (10/06/2021 12:28 PM CDT) Bilirubin, total 0.4 0.1 - 1.2 mg/dL [facility] ([place]) Bilirubin, direct <0.2 0.1 - 0.3 mg/dL [facility] ([place]) Protein, pl 6.3(L) 6.5 - 8.5 g/dL [facility] ([place]) Albumin 3.8 3.5 - 5.0 g/dL [facility] ([place]) Alk phos 98 40 - 130 Units/L [facility] ([place]) ALT 10 7 - 55 Units/L [facility] ([place]) AST 11 10 - 50 Units/L [facility] ([place]) Blood 10/06/2021 12:2 8 PM CDT 10/06/2021 12:40 PM CDT Wesley Em MD LAB BLOOD ORDERABLES Final Res ult Performing Organization Address [facility] de Phone Number [facility] ([place]) 1 [facility] [address] * (ABNORMAL) Hemoglobin A1c (10/06/2021 12:28 PM CDT) Pathologist [facility] Hgb A1C 5.7(H) 4.0 - 5.6 % [facility] ([place]) Estimated Average Glucose 117 mg/dL [facility] ([place]) Comment: The ADA recommends reporting an estimated Average Glucose (eAG) with all Hemoglobin A1c results using the equation derived from a study of 507 normal and diabetic adults. ??Minority populations were underrepresented and children were not included. ?? (Diabetes Care 31:8091-6605, 2008). ??The eAG is not equivalent to a fasting glucose. Blood 10/06/2021 12:2 8 PM CDT 10/06/2021 12:40 PM CDT Wesley Em MD LAB BLOOD ORDERABLES Final Res ult Performing Organization Address [facility]/ZIP Co de Phone Number [facility] ([place]) [address] Department [place] [address] * Basic metabolic panel (10/06/2021 12:28 PM CDT) Sodium 138 135 - 145 mmol/L [facility] ([place]) Potassium, pl 3.9 3.3 - 4.9 mmol/L [facility] ([place]) Chloride 105 97 - 110 mmol/L [facility] ([place]) CO2 25 22 - 32 mmol/L [facility]) Anion gap 8 2 - 15 mmol/L [facility]) BUN 21 8 - 25 mg/dL [facility] Creatinine 1.10 0.80 - 1.30 mg/dL [facility] ([place]) Glucose 116 70 - 199 mg/dL [facility] ([place] Comment: Interpretive Data [...] Current interpretive data was last revised 2017. Calcium 8.6 8.5 - 10.3 mg/dL [facility] ([place]) Blood 10/06/2021 12:2 8 PM CDT 10/06/2021 12:40 PM CDT us Wesley Em MD LAB BLOOD ORDERABLES Final Res ult [facility] ([place]) 1 [facility] Department [place] [address] * PSA screen (10/06/2021 12:28 PM CDT) PSA-Total 5.02 <=6.20 ng/mL [facility] ([place]) Comment: Interpretive Data ?AGE ? SEX ?REFERENCE INTERVAL 0 minutes-150 years ?Female ?None 0 minutes-49 years ? Male ?None ? 50-59 years ? Male ?0-3.90 ? 60-69 years ? Male ?0-5.40 ? 70-79 years ? Male ?0-6.20 ? 80-150 years ?Male ?0-6.20 Current interpretive data last revised 2018. Testing performed by: [facility], [address] [place] [address]., [address] Blood 10/06/2021 12:2 8 PM CDT 10/06/2021 2:06 PM CDT us Wesley Em MD LAB BLOOD ORDERABLES Final Res ult [facility] ([place] 1 [facility] Department [place] [address] documented in this encounter Visit Diagnoses Diagnosis Type 2 diabetes mellitus with hyperlipidemia (HCC)- Primary Screening PSA (prostate specific antigen) Special screening for malignant neoplasm of prostate documented in this encounter Care Teams Deliverer Food Relationship Specialty Start Date End Date Wesley Em MD PCP - General 09/30/16 12/01/21 Trey Pinedo MD [address] [place] [address] [place] [address] Consulting Physician Neurology 05/09/19 documented as of this encounter
--- OUTSIDE RECORDS SUMMARY | 2024-06-18 18:08 | XMS_ITS | Encounter Summary ---
Author Organization [facility] Healthcare Address [address] [place] [address] Care Team Providers Care Chief Substation Operator Name Role Phone Wesley Em MD Primary Care Provider [phone] Trey Pinedo MD Unavailable [phone] Encounter Details Date Type Department Care Team (Late st Contact Info) Description 09/14/2021 3:00 PM CDT Lab [facility] Physicians 4 [facility] [address] [place] [address] Polycythemia Social History Tobacco Use Types Packs/Day [...] than three times a week 12/31/2020 Attends Hoahaoism Services Not on file 12/31 Active Member [...] on file 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 Gender Identity Not on file Sexual Orientation Straight 01/23/2021 10 :16 PM CDT documented as of this encounter Last Filed Vital Signs Vital Sign Reading Time Taken Comments Blood Pressure 153/48 09/14/2021 2:57 PM CDT Pulse 74 09/14/2021 2:57 PM CDT Temperature 36.5 ??C (97.7 ??F) 09/14/2021 2:57 PM CD T Respiratory Rate 20 09/14/2021 2:57 PM CDT Oxygen Saturation 97% 09/14/2021 2:57 PM CDT Inhaled Oxygen Concentration - - Weight 84.2 kg (185 lb 9.6 oz) 09/14/2021 2:57 P M CDT Height - - Body Mass Index 26.63 08/17/2021 2:36 PM 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 documented in this encounter Plan of Treatment Not on file documented as of this encounter Procedures Procedure Name Priority Date/Time Associated Diagnosis Comments DIFFERENTIAL AUTO Routine 09/14/2021 3:0 0 PM CDT Polycythemia CBC WITH AUTO DIFFERENTIAL Routine 09/14/2021 3:00 PM CDT Polycythemia documented in this encounter Results * Differential, auto (09/14/2021 3:00 PM CDT) Neutrophil abs 3.8 1.7 - 6.5 K/cumm [facility] ([place]) Imm gran abs Not Measured 0.0 - 0.1 K/cumm [facility] ([place]) Lymphocyte abs 1.1 0.8 - 3.3 K/cumm [facility] ([place]) Monocyte abs 0.5 0.2 - 0.8 K/cumm [facility] ([place]) Eosinophil abs 0.1 0.0 - 0.5 K/cumm [facility] ([place]) Basophil abs 0.1 0.0 - 0.1 K/cumm [facility] ([place]) Neutrophil pct 68.9 % [facility] ([place]) Comment: Interpretive [...] was last revised on 2017. Lymphocyte pct 19.1 % [facility] ([place]) Comment: Interpretive Data Percent cell count reference ranges are not reported, since discordance with absolute values may lead to misinterpretation of CBC data. Current Interpretive Data was last revised on 2017. Monocyte pct 8.1 % [facility] ([place]) Comment: Interpretive Data Percent cell count reference ranges are not reported, since discordance with absolute values may lead to misinterpretation of CBC data. Current Interpretive Data was last revised on 2017. Eosinophil pct 2.3 % [facility] ([place]) Comment: Interpretive Data Percent cell count reference ranges are not reported, since discordance with absolute values may lead to misinterpretation of CBC data. Current Interpretive Data was last revised on 2017. Basophil pct 1.6 % [facility] ([place]) Comment: Interpretive Data Percent cell count reference ranges are not reported, since discordance with absolute values may lead to misinterpretation of CBC data. Current Interpretive Data was last revised on 2017. Blood 09/14/2021 3:00 PM CDT 09/14/2021 3:02 PM CDT Chintan Figueroa MD LAB BLOOD ORDERABLES Final Re sult [facility] ([place]) 1 [facility] [place] [address] * CBC with auto differential (09/14/2021 3:00 PM CDT) WBC 5.6 3.8 - 9.9 K/cumm [facility] ([place]) Hgb 15.5 13.0 - 17.5 g/dL [facility] ([place]) Hct 47.0 38.9 - 50.3 % [facility] ([place]) Plt 199 150 - 400 K/cumm [facility] ([place]) MPV 10.7 9.1 - 12.3 fL [facility] ([place]) RBC 5.57 4.30 - 5.80 M/cumm [facility] ([place]) MCV 84.4 81.3 - 96.4 fL [facility] ([place]) MCH 27.8 27.1 - 33.3 pg [facility] ([place]) MCHC 33.0 32.3 - 35.7 g/dL [facility] ([place]) RDW CV 13.6 11.1 - 14.9 % [facility] ([place]) RDW SD 41.6 35.7 - 48.1 fL [facility] ([place]) NRBC abs Not Measured 0.00 - 0.01 K/cumm [facility] ([place]) Blood 09/14/2021 3:00 PM CDT 09/14/2021 3:02 PM CDT Chintan Figueroa MD LAB BLOOD ORDERABLES Final Re sult [facility] ([place]) 1 [facility] [place] [address] documented in this encounter Visit Diagnoses Diagnosis Polycythemia Polycythemia, secondary documented in this encounter Orders Appointment Requests Count Last Ordered Date Fi rst Ordered Date ONCBCN LAB APPOINTMENT 1 09/14/2021 documented in this encounter Care Teams Chief Substation Operator Relationship Specialty Start Date End Date Wesley Em MD PCP - General 09/30/16 12/01/21 Trey Pinedo MD [address] [place] [address] [address] [facility] [place] [address] Consulting Physician Neurology 05/09/19 documented as of this encounter
--- OUTSIDE RECORDS SUMMARY | 2024-06-18 18:08 | XMS_ITS | Encounter Summary ---
Author Organization [facility] Address [address] [facility] [address] [place] [address] Care Team Providers Care Heat Treater Apprentice Name Role Phone Wesley Em MD Primary Care Provider [phone] Trey Pinedo MD Unavailable [phone] Encounter Details Date Type Department Care Team (Late st Contact Info) Description 11/03/2021 Telephone [facility] [address] 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 Craft's office is booked out past and patient has a scheduled appointment to transfer to [facility], referral for Dr. Craft has been placed under [facility]. Their office will contact patient to schedule. * Telephone Encounter - Grace Redmond - 11/03/2021 3:50 PM CDT Pt son Ian on hippa aware. 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
--- OUTSIDE RECORDS SUMMARY | 2024-06-18 18:08 | XMS_ITS | Encounter Summary ---
Author Organization [facility] Address [address] [place] [address] Care Team Providers Care Biomedical Instrument Technician Name Role Phone Wesley Em MD Primary Care Provider [phone] Trey Pinedo MD Unavailable [phone] Encounter Details Date Type Department Care Team (Late st Contact Info) Description 2021 2:45 PM CDT Lab [facility] Phys[facility] [address] [facility] [address] [place] [address] Polycythemia Social History Tobacco Use Types Packs/Day [...] than three times a week 12/31/2020 Attends [employer] Services Not on file 12/31 Active Member [...] points, staff should administer the PHQ-9) 0 10/07/2021 PRAPARE - Transportation Answer Date Re corded [...] on file 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 Gender Identity Not on file Sexual Orientation Straight 01/23/2021 10 :16 PM CDT documented as of this encounter Plan of Treatment Not on file documented as of this encounter Procedures Procedure Name Priority Date/Time Associated Diagnosis Comments DIFFERENTIAL AUTO Routine 2021 2:2 5 PM CDT Polycythemia IRON PROFILE W/ IBC Routine 2021 2 :25 PM CDT Polycythemia CBC WITH AUTO DIFFERENTIAL Routine 2021 2:25 PM CDT Polycythemia documented in this encounter Results * Differential, auto (2021 2:25 PM CDT) Neutrophil abs 3.7 1.7 - [...] 0.1 K/cumm [facility] ([place]) Neutrophil pct 66.2 % [facility] Comment: Interpretive [...] was last revised on 2017. Lymphocyte pct 19.7 % [facility]) Comment: Interpretive [...] was last revised on 2017. Eosinophil pct 2.1 % [facility] ([place]) Comment: Interpretive [...] Data was last revised on 2017. Blood 2021 2:25 PM CDT 2021 2:28 PM CDT us Chintan Figueroa MD LAB BLOOD ORDERABLES Final Re sult [facility] ([place]) [address] [facility] Department [place] [address] * (ABNORMAL) Iron profile w/ IBC (2021 2:25 PM CDT) Iron 31(L) 50 - 150 mcg/dL [facility]) TIBC 283 250 - 400 mcg/dL [facility]) Transferrin saturation 11(L) 20 - 50 % [facility]) Blood 2021 2:25 PM CDT 2021 3:03 PM CDT us Chintan Figueroa MD LAB BLOOD ORDERABLES Final Re sult [facility] ([place]) [address] [facility] Department [place] [address] * (ABNORMAL) CBC with auto differential (2021 2:25 PM CDT) WBC 5.6 3.8 - 9.9 K/cumm [facility]) Hgb 14.5 13.0 - 17.5 g/dL [facility]) Hct 45.3 38.9 - 50.3 % [facility]) Plt 191 150 - 400 K/cumm [facility]) MPV 10.5 9.1 - 12.3 fL [facility]) RBC 5.39 4.30 - 5.80 M/cumm [facility]) MCV 84.0 81.3 - 96.4 fL [facility]) MCH 26.9(L) 27.1 - 33.3 pg [facility]) MCHC 32.0(L) 32.3 - 35.7 g/dL [facility]) RDW CV 14.1 11.1 - 14.9 % [facility]) RDW SD 42.6 35.7 - 48.1 fL [facility]) NRBC abs Not Measured 0.00 - 0.01 K/cumm [facility]) Blood 2021 2:25 PM CDT 2021 2:28 PM CDT us Chintan Figueroa MD LAB BLOOD ORDERABLES Final Re sult [facility] ([place]) [address] [facility] Department [place] [address] documented in this encounter Visit Diagnoses Diagnosis Polycythemia Polycythemia, secondary documented in this encounter Orders Appointment Requests Count Last Ordered Date Fi rst Ordered Date ONCBCN LAB APPOINTMENT 1 2021 documented in this encounter Care Teams Biomedical Instrument Technician Relationship Specialty Start Date End Date Wesley Em MD PCP - General 09/30/16 12/01/21 Trey Pinedo MD [address] [place] [address] [address] [place] [address] Consulting Physician Neurology 05/09/19 documented as of this encounter
--- OUTSIDE RECORDS SUMMARY | 2024-06-18 18:08 | XMS_ITS | Encounter Summary ---
Author Organization [facility] Address [address] [facility] [address] [place] [address] Care Team Providers Care Inorganic Chemical Technician Name Role Phone Wesley Em MD Primary Care Provider [phone] Trey Pinedo MD Unavailable [phone] Encounter Details Date Type Department Care Team (Late st Contact Info) Description 10/06/2021 Telephone [facility] [address] [facility] [address] [place] [address] Wesley Em MD [address] [place] [address] [address] [place] [address] Social History Tobacco Use Types [...] on file 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 Em at office visit today * Telephone Encounter - Martha Sutton MA - 10/06/2021 4:32 PM CDT Message left for patients jimmy Benz on HIPAA to call office * Telephone Encounter - Martha Sutton MA - 10/06/2021 4:31 PM CDT ----- Message from Wesley Em MD sent at 10/06/2021 4:22 PM CDT ----- Call patient PSA up to 5.02 7 months ago 1.89 Recommend referral to Urology here for evaluation of rising PSA Okay to talk to jimmy MONTANEZ documented in this encounter Plan of Treatment Not on file documented as of this encounter Visit Diagnoses Not on filedocumented in this encounter Care Teams Inorganic Chemical Technician Relationship Specialty Start Date End Date Wesley Em MD PCP - General 09/30/16 12/01/21 Trey Pinedo MD [address] [facility] [place] [address] Consulting Physician Neurology 05/09/19 documented as of this encounter
--- OUTSIDE RECORDS SUMMARY | 2024-06-18 18:08 | XMS_ITS | Encounter Summary ---
Author Organization [facility] Healthcare Address [address] [place] [address] Care Team Providers Care Manager Car Name Role Phone Wesley Em MD Primary Care Provider [phone] Trey Pinedo MD Unavailable [phone] Reason for Visit * Reason Comments Phlebotomy Encounter Details Date Type Department Care Team (Late st Contact Info) Description 06/22/2021 3:15 PM COMMUNICATIONS ADVISOR Infusion [facility] [address] [facility] [address] [place] [address] Polycythemia (Primary Dx) Social History Tobacco Use [...] than three times a week 12/31/2020 Attends [employer] Services Not on file 12/31 Active Member [...] on file 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 Gender Identity Not on file Sexual Orientation Straight 01/23/2021 10 :16 PM CDT documented as of this encounter Last Filed Vital Signs Vital Sign Reading Time Taken Comments Blood Pressure 137/72 06/22/2021 3:12 PM COMMUNICATIONS ADVISOR Pulse 72 06/22/2021 3:12 PM COMMUNICATIONS ADVISOR Temperature - - Respiratory Rate 20 06/22/2021 3:12 PM COMMUNICATIONS ADVISOR Oxygen Saturation 96% 06/22/2021 3:12 PM COMMUNICATIONS ADVISOR Inhaled Oxygen Concentration - - Weight - - Height - - Body Mass Index - - documented in this encounter Nursing Notes * Millicent Amor RN - 06/22/2021 3:15 PM CST Patient presented to the infusion center today for a phlebotomy. Vitals stable. Phlebotomy performed in the right ac, only able to obtain 221ml. Dr Figueroa made aware and stated it was adequate, no need to try to obtain more. Patient observed for 15 minutes following. Vitals obtained and stable. AVS printed and reviewed with patient. Patient had no further questions at this time and left in stable condition. UNICATIONS ADVISOR documented in this encounter Plan of Treatment Not on file documented as of this encounter Visit Diagnoses Diagnosis Polycythemia- Primary Polycythemia, secondary documented in this encounter Orders Nursing Count Last Ordered Date First Orde red Date ONCBCN THERAPEUTIC PHLEBOTOMY 1 06/22/2021 Appointment Requests Count Last Ordered Date Fi rst Ordered Date ONCBCN INFUSION APPT REQUEST 1 06/22/2021 documented in this encounter Care Teams Manager Car Relationship Specialty Start Date End Date Wesley Em MD PCP - General 09/30/16 12/01/21 Trey Pinedo MD [address] [facility] [place] [address] Consulting Physician Neurology 05/09/19 documented as of this encounter
--- OUTSIDE RECORDS SUMMARY | 2024-06-18 18:08 | XMS_ITS | Encounter Summary ---
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 Gender Identity Not on file Sexual Orientation Straight 01/23/2021 10 :16 PM CDT documented as of this encounter Discharge Disposition Disposition Code Departure Means Destination Discharge to home or self care documented in this encounter Miscellaneous Notes * Result Encounter Note - Wesley Em MD - 10/06/2021 4:22 PM CDT Call patient PSA up to 5.02 7 months ago 1.89 Recommend referral to Urology here for evaluation of rising PSA Okay to talk to abdullahi MONTANEZ documented in this encounter Plan of Treatment Not on file documented as of this encounter Procedures Procedure Name Priority Date/Time Associated Diagnosis Comments EGFR Routine 10/06/2021 12:28 PM CDT Type 2 diabetes mellitus with hyperlipidemia (HCC) PSA SCREEN Routine 10/06/2021 12:28 PM CDT Screening PSA (prostate specific antigen) MAGNESIUM Routine 10/06/2021 12:28 PM CDT Type 2 diabetes mellitus with hyperlipidemia (HCC) HEMOGLOBIN A1C Routine 10/06/2021 12:28 PM CDT Type 2 diabetes mellitus with hyperlipidemia (HCC) HEPATIC FUNCTION PANEL Routine 10/06/2021 12:28 PM CDT Type 2 diabetes mellitus with hyperlipidemia (HCC) BASIC METABOLIC PANEL Routine 10/06/2021 12:28 PM CDT Type 2 diabetes mellitus with hyperlipidemia (HCC) documented in this encounter Results * eGFR (10/06/2021 12:28 PM CDT) eGFR 70 mL/min/1. 73 m2 [facility] ([place]) Comment: [...] interpretive data was last reviewed 2021. Blood 10/06/2021 12:2 8 PM CDT 10/06/2021 12:40 PM CDT us Wesley Em MD LAB BLOOD ORDERABLES Final Res ult Performing Organization Address City/[facility]/ZIP Co de Phone Number [facility] ([place]) [address] [facility] Department [place] [address] * PSA screen (10/06/2021 12:28 PM CDT) PSA-Total 5.02 <=6.20 ng/mL [facility] ([place]) Comment: Interpretive Data ?AGE ? SEX ?REFERENCE INTERVAL 0 minutes-150 years ?Female ?None 0 minutes-49 years ? Male ?None ? 50-59 years ? Male ?0-3.90 ? 60-69 years ? Male ?0-5.40 ? 70-79 years ? Male ?0-6.20 ? 80-150 years ?Male ?0-6.20 Current interpretive data last revised 2018. Testing performed by: [facility], [address] [place] [address]., [id number] Blood 10/06/2021 12:2 8 PM CDT 10/06/2021 2:06 PM CDT us Wesley Em MD LAB BLOOD ORDERABLES Final Res ult Performing Organization Address City/[facility]/ZIP Co de Phone Number [facility] ([place]) 1 [facility] Department [place] [address] * Basic metabolic panel (10/06/2021 12:28 PM CDT) Sodium 138 135 - 145 mmol/L [facility] ([place]) Potassium, pl 3.9 3.3 - 4.9 mmol/L [facility] ([place]) Chloride 105 97 - 110 mmol/L [facility]) CO2 25 22 - 32 mmol/L [facility]) Anion gap 8 2 - 15 mmol/L [facility]) BUN 21 8 - 25 mg/dL [facility]) Creatinine 1.10 0.80 - 1.30 mg/dL [facility]) Glucose 116 70 - 199 mg/dL [facility] ([place]) Comment: Interpretive Data Fasting glucose >/= [...] 2017. Calcium 8.6 8.5 - 10.3 mg/dL [facility] ([place]) Blood 10/06/2021 12:2 8 PM CDT 10/06/2021 12:40 PM CDT Wesley Em MD LAB BLOOD ORDERABLES Final Res ult [facility] ([place]) [address] [facility] Department of Laboratories [place], [place] [id number] * (ABNORMAL) Hemoglobin A1c (10/06/2021 12:28 PM CDT) Hgb A1C 5.7(H) 4.0 - 5.6 % [facility] ([place]) Estimated Average Glucose 117 mg/dL [facility] ([place]) Comment: The ADA recommends reporting an estimated Average Glucose (eAG) with all Hemoglobin A1c results using the equation derived from a study of 507 normal and diabetic adults. ??Minority populations were underrepresented and children were not included. ?? (Diabetes Care 31:0461-5494, 2008). ??The eAG is not equivalent to a fasting glucose. Blood 10/06/2021 12:2 8 PM CDT 10/06/2021 12:40 PM CDT Wesley mE MD LAB BLOOD ORDERABLES Final Res ult [facility] ([place]) [address] [facility] [place] [address] * (ABNORMAL) Hepatic function panel (10/06/2021 12:28 PM CDT) Bilirubin, total 0.4 0.1 - 1.2 mg/dL [facility]) Bilirubin, direct <0.2 0.1 - 0.3 mg/dL [facility] ([place]) Protein, pl 6.3(L) 6.5 - 8.5 g/dL [facility]) Albumin 3.8 3.5 - 5.0 g/dL [facility] ([place]) Alk phos 98 40 - 130 Units/L [facility]) ALT 10 7 - 55 Units/L [facility]) AST 11 10 - 50 Units/L [facility]) Blood 10/06/2021 12:2 8 PM CDT 10/06/2021 12:40 PM CDT us Wesley Em MD LAB BLOOD ORDERABLES Final Res ult [facility] ([place]) [address] [facility] [place] [address] * Magnesium (10/06/2021 12:28 PM CDT) Magnesium 2.0 1.4 - 2.5 mg/dL [facility] ([place]) Blood 10/06/2021 12:2 8 PM CDT 10/06/2021 12:40 PM CDT us Wesley Em MD LAB BLOOD ORDERABLES Final Res ult [facility] ([place]) [address] [facility] Department [place] [address] documented in this encounter Visit Diagnoses Diagnosis Type 2 diabetes mellitus with hyperlipidemia (HCC) Screening PSA (prostate specific antigen) Special screening for malignant neoplasm of prostate documented in this encounter Care Teams Personal Secretary Relationship Specialty Start Date End Date Wesley Em MD PCP - General 09/30/16 12/01/21 Trey Pinedo MD [address] [place] [address] [address] [place] [address] Consulting Physician Neurology 05/09/19 documented as of this encounter
--- OUTSIDE RECORDS SUMMARY | 2024-06-18 18:08 | XMS_ITS | Encounter Summary ---
Author Organization [facility] Address [address] [facility] [address] [place] [address] Care Team Providers Care Content Management Consultant Name Role Phone Wesley Em MD Primary Care Provider Trey Pinedo MD Unavailable [phone] Reason for Visit * Reason Comments Follow-up 4 month Encounter Details Date Type Department Care Team (Late st Contact Info) Description 10/07/2021 3:00 PM CDT Office Visit [facility] [address] [facility] [address] [place] [address] Wesley Em MD [address] [place] [address] [address] [place] [address] Overweight with body mass index (BMI) of 27 to 27.9 in adult (Primary Dx); Coronary artery disease involving [place] coronary artery of [place] heart without angina pectoris; Essential hypertension; Mixed hyperlipidemia Social History Tobacco Use Types Packs/Day Years [...] file 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 Gender Identity Not on file Sexual Orientation Straight 01/23/2021 10 :16 PM CDT documented as of this encounter Last Filed Vital Signs Vital Sign Reading Time Taken Comments Blood Pressure 150/90 10/07/2021 3:08 PM CDT Pulse 60 10/07/2021 3:08 PM CDT Temperature - - Respiratory Rate 20 10/07/2021 3:08 PM CDT Oxygen Saturation - - Inhaled Oxygen Concentration - - Weight 85.7 kg (189 lb) 10/07/2021 3:08 PM CDT Height 177.8 cm (5' 10 ) 10/07/2021 3:08 PM CDT Body Mass Index 27.12 10/07/2021 3:08 PM CDT documented in this encounter Ordered Prescriptions Prescription Sig Dispense Quantity Refills Last Filled Start Date End Date clopidogreL (PLAVIX) 75 mg tablet Take 1 tablet (75 mg total) by mouth daily 90 tablet 3 10/07/2021 11/05/2021 finasteride (PROSCAR) 5 mg tablet Take 1 tablet (5 mg total) by mouth daily 90 tablet 3 10/07/2021 11/05/2021 atorvastatin (LIPITOR) 40 mg tablet Take 1 tablet (40 mg total) by mouth daily 30 tablet 5 10/07/2021 11/05/2021 metoprolol XL (TOPROL-XL) 50 mg extended release tablet Take 1 tablet (50 mg total) by mouth daily 30 tablet 5 10/07/2021 11/05/2021 metoprolol XL (TOPROL-XL) 50 mg extended release tablet Take 1 tablet (50 mg total) by mouth daily 30 tablet 5 10/07/2021 10/07/2021 documented in this encounter Progress Notes * Wesley Em MD - 10/07/2021 3:00 PM CDT Subjective/Objective Patient ID: Villa Zuniga is a 75 y.o. male. Chief Complaint Follow-up (4 month) HPI Davidsno seen today with his son TARIK and his the patient quit taking his medications every 1 of a couple months ago his blood pressure is running high he states he could tell any difference where they took the medication or not so he decided to stop him he does have a history of coronary disease hypertension TIA type 2 diabetes Review of Systems Vitals: 10/07/21 1508 BP: 150/90 BP Location: Left arm Patient Position: Sitting Pulse: 60 Resp: 20 Weight: 85.7 kg (189 lb) Height: 177.8 cm (5' 10 ) Physical Exam the patient is pleasant no distress his blood pressure confirmed lungs clear cardiovascular regular Assessment/Plan Diagnoses and all orders for this visit: Overweight with body mass index (BMI) of 27 to 27.9 in adult (Primary) Coronary artery disease involving [place] coronary artery of [place] heart without angina pectoris patient is agreeable start some medications back he will take the aspirin 81 mg daily atorvastatin 40 mg daily each morning Plavix 75 daily each morning along finasteride 5 mg daily each morning and metoprolol XL 50 each morning Essential hypertension restart medications as above Mixed hyperlipidemia restart medications as above all see back in 2-3 weeks Other orders - metoprolol XL (TOPROL-XL) 50 mg extended release tablet; Take 1 tablet (50 mg total) by mouth daily - atorvastatin (LIPITOR) 40 mg tablet; Take 1 tablet (40 mg total) by mouth daily - finasteride (PROSCAR) 5 mg tablet; Take 1 tablet (5 mg total) by mouth daily - clopidogreL (PLAVIX) 75 mg tablet; Take 1 tablet (75 mg total) by mouth daily Side effects, risks, interactions reviewed with patient. Indications for testing discussed. Any further problems to contact us. He was told what to look out for and verbalized understanding. The patient was given the opportunity to have all questions answered today and was in agreement with the plan of care. documented in this encounter Plan of Treatment Not on file documented as of this encounter Visit Diagnoses Diagnosis Overweight with body mass index (BMI) of 27 to 27.9 in adult- Primary Coronary artery disease involving [place] coronary artery of [place] heart without angina pectoris Essential hypertension Unspecified essential hypertension Mixed hyperlipidemia documented in this encounter Discontinued Medications Medication Sig Discontinue Reason Start Date End Da te metoprolol tartrate (LOPRESSOR) 25 mg immediate release tablet TAKE 1 TABLET BY MOUTH TWO TIMES DAILY 07/14/2020 10/07/2021 metoprolol XL (TOPROL-XL) 50 mg extended release tablet Take 1 tablet (50 mg total) by mouth daily Reorder 10/07/2021 10/07/2021 atorvastatin (LIPITOR) 80 mg tablet TAKE 1 TABLET BY MOUTH DAILY 08/20/2021 10/07/2021 finasteride (PROSCAR) 5 mg tablet TAKE 1 TABLET BY MOUTH DAILY Reorder 08/20/2021 10/07/2021 cloNIDine (CATAPRES) 0.1 mg tablet Take 1 tablet (0.1 mg total) by mouth 3 (three) times a day 08/27/2020 10/07/[address] (NexIUM) 40 mg capsule TAKE 1 CAPSULE BY MOUTH DAILY BEFORE BREAKFAST 08/17/2021 10/07/2021 hydroCHLOROthiazide (HYDRODIURIL) 12.5 mg tablet TAKE 1 TABLET BY MOUTH DAILY 08/24/2021 10/07/2021 tamsulosin (FLOMAX) 0.4 mg extended release capsule TAKE 1 CAPSULE BY MOUTH DAILY 08/22/2021 10/07/2021 valsartan (DIOVAN) 160 mg tablet Take 1 tablet (160 mg total) by mouth daily 03/09/2021 10/07/2021 clopidogreL (PLAVIX) 75 mg tablet TAKE 1 TABLET BY MOUTH DAILY Reorder 08/20/2021 10/07/2021 potassium citrate ER (UROCIT-K) 10 mEq (1,080 mg) CR tablet take 1 tablet by oral route 2 times every day 10/12/2016 10/07/2021 documented as of this encounter Care Teams Content Management Consultant Relationship Specialty Start Date End Date Wesley Em MD PCP - General 09/30/16 12/01/21 Trey Pinedo MD [address] [facility] [address] [place] [address] Consulting Physician Neurology 05/09/19 documented as of this encounter
--- OUTSIDE RECORDS SUMMARY | 2024-06-18 18:08 | XMS_ITS | Encounter Summary ---
Author Organization [facility] Healthcare Address [address] [place] [address] Care Team Providers Care Ship Keeper Name Role Phone Wesley Em MD Primary Care Provider Trey Pinedo MD Unavailable [phone] Encounter Details Date Type Department Care Team (Late st Contact Info) Description 08/17/2021 3:00 PM ACTIVITIES CONCIERGE Lab [facility] Physicians [address] [facility] [address] [place] [id number] Polycythemia Social History Tobacco Use Types Packs/Day [...] on file 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 ACTIVITIES CONCIERGE Gender Identity Not on file Sexual Orientation Straight 01/23/2021 10 :16 PM CDT documented as of this encounter Last Filed Vital Signs Vital Sign Reading Time Taken Comments Blood Pressure 167/91 08/17/2021 2:36 PM ACTIVITIES CONCIERGE Pulse 59 08/17/2021 2:36 PM ACTIVITIES CONCIERGE Temperature 36 ??C (96.8 ??F) 08/17/2021 2:36 PM ACTIVITIES CONCIERGE Respiratory Rate 20 08/17/2021 2:36 PM ACTIVITIES CONCIERGE Oxygen Saturation 97% 08/17/2021 2:36 PM ACTIVITIES CONCIERGE Inhaled Oxygen Concentration - - Weight 83.2 kg (183 lb 6.4 oz) 08/17/2021 2:36 P M ACTIVITIES CONCIERGE Height 177.8 cm (5' 10 ) 08/17/2021 2:36 PM ACTIVITIES CONCIERGE Body Mass Index 26.32 08/17/2021 2:36 PM ACTIVITIES CONCIERGE documented in this encounter Plan of Treatment Not on file documented as of this encounter Procedures Procedure Name Priority Date/Time Associated Diagnosis Comments DIFFERENTIAL AUTO Routine 08/17/2021 2:4 0 PM ACTIVITIES CONCIERGE Polycythemia CBC WITH AUTO DIFFERENTIAL Routine 08/17/2021 2:40 PM ACTIVITIES CONCIERGE Polycythemia documented in this encounter Results * Differential, auto (08/17/2021 2:40 PM ACTIVITIES CONCIERGE) Neutrophil abs 4.2 1.7 - 6.5 K/cumm [...] 0.1 K/cumm [facility] Neutrophil pct 65.6 % [facility] Comment: Interpretive [...] was last revised on 2017. Lymphocyte pct 19.2 % [facility] Comment: Interpretive Data Percent cell count reference ranges are not reported, since discordance with absolute values may lead to misinterpretation of CBC data. Current Interpretive Data was last revised on 2017. Monocyte pct 11.7 % [facility] Comment: Interpretive Data Percent cell count reference ranges are not reported, since discordance with absolute values may lead to misinterpretation of CBC data. Current Interpretive Data was last revised on 2017. Eosinophil pct 2.0 % [facility] Comment: Interpretive Data Percent cell count reference ranges are not reported, since discordance with absolute values may lead to misinterpretation of CBC data. Current Interpretive Data was last revised on 2017. Basophil pct 1.5 % [facility] Comment: Interpretive Data Percent cell count reference ranges are not reported, since discordance with absolute values may lead to misinterpretation of CBC data. Current Interpretive Data was last revised on 2017. Blood 08/17/2021 2:40 PM ACTIVITIES CONCIERGE 08/17/2021 2:40 PM ACTIVITIES CONCIERGE Chintan Figueroa MD LAB BLOOD ORDERABLES Final Re sult [facility]) [address] [facility] Department [place] [address] * (ABNORMAL) CBC with auto differential (08/17/2021 2:40 PM ACTIVITIES CONCIERGE) WBC 6.5 3.8 - 9.9 K/cumm [facility]) Hgb 16.9 13.0 - 17.5 g/dL [facility] Hct 50.0 38.9 - 50.3 % [facility] Plt 188 150 - 400 K/cumm [facility] MPV 10.9 9.1 - 12.3 fL [facility] RBC 5.82(H) 4.30 - 5.80 M/cumm [facility] MCV 85.9 81.3 - 96.4 fL [facility] MCH 29.0 27.1 - 33.3 pg [facility] MCHC 33.8 32.3 - 35.7 g/dL [facility] RDW CV 13.9 11.1 - 14.9 % [facility] RDW SD 42.7 35.7 - 48.1 fL [facility] NRBC abs Not Measured 0.00 - 0.01 K/cumm [facility]) Blood 08/17/2021 2:40 PM ACTIVITIES CONCIERGE 08/17/2021 2:40 PM ACTIVITIES CONCIERGE Chintan Figueroa MD LAB BLOOD ORDERABLES Final Re sult [facility] Department [place] [address] documented in this encounter Visit Diagnoses Diagnosis Polycythemia Polycythemia, secondary documented in this encounter Orders Appointment Requests Count Last Ordered Date Fi rst Ordered Date ONCBCN LAB APPOINTMENT 1 08/17/2021 documented in this encounter Care Teams Ship Keeper Relationship Specialty Start Date End Date Wesley Em MD PCP - General 09/30/16 12/01/21 Trey Pinedo MD [address] [place] [address] [place] [id number] Consulting Physician Neurology 05/09/19 documented as of this encounter
--- OUTSIDE RECORDS SUMMARY | 2024-06-18 18:08 | XMS_ITS | Encounter Summary ---
Author Organization [facility] Healthcare Address [address] [place] [address] Care Team Providers Care Neon Technician Name Role Phone Wesley Em MD Primary Care Provider [phone] Trey Pinedo MD Unavailable [phone] Reason for Visit * Reason Comments Phlebotomy Encounter Details Date Type Department Care Team (Late st Contact Info) Description 08/17/2021 3:15 PM NUTRITIONAL SERVICES HOST Infusion [facility] [address] [facility] [address] [place] [address] Polycythemia Social History Tobacco Use Types Packs/Day [...] than three times a week 12/31/2020 Attends Islam Services Not on file 12/31 Active Member [...] on file 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 NUTRITIONAL SERVICES HOST Gender Identity Not on file Sexual Orientation Straight 01/23/2021 10 :16 PM CDT documented as of this encounter Last Filed Vital Signs Vital Sign Reading Time Taken Comments Blood Pressure 144/72 08/17/2021 3:18 PM NUTRITIONAL SERVICES HOST Pulse 62 08/17/2021 3:18 PM NUTRITIONAL SERVICES HOST Temperature 36.3 ??C (97.3 ??F) 08/17/2021 3:18 PM CS T Respiratory Rate 20 08/17/2021 3:18 PM NUTRITIONAL SERVICES HOST Oxygen Saturation - - Inhaled Oxygen Concentration - - Weight - - Height - - Body Mass Index - - documented in this encounter Nursing Notes * Taya Lynn, RN - 08/17/2021 3:15 PM CST ALERT Pt. HERE FOR PHLEBOTOMY ORDERED BY Dr. ROMERO. ASSESSMENT COMPLETED. CBC REVIEWED. HCT. 50.PHLEBOTOMY MACHINE CALIBRATED. PHLEBOTOMY BEGUN VIA RIGHT ANTECUBITAL AT 1452 AND ENDED AT 1505. 500 ML BLOOD COLLECTED, LABELED AND SENT TO LAB FOR DISPOSAL. PRESSURE DRESSING APPLIED TO PHLEBOTOMY SITE. Pt. GIVEN SNACK AND MONITORED AFTER PHLEBOTOMY. Pt. TOLERATED PROCEDURE WELL. DISCHARGE VS DONE AND CHARTED. REMINDED OF NEXT APPOINTMENT. ITIONAL SERVICES HOST documented in this encounter Plan of Treatment Not on file documented as of this encounter Visit Diagnoses Diagnosis Polycythemia Polycythemia, secondary documented in this encounter Orders Appointment Requests Count Last Ordered Date Fi rst Ordered Date ONCBCN INFUSION APPT REQUEST 1 08/17/2021 documented in this encounter Care Teams Neon Technician Relationship Specialty Start Date End Date Wesley Em MD PCP - General 09/30/16 12/01/21 Trey Pinedo MD [address] [place] [address] DR [place] [facility] [place] [address] Consulting Physician Neurology 05/09/19 documented as of this encounter
--- OUTSIDE RECORDS SUMMARY | 2024-06-18 18:08 | XMS_ITS | Encounter Summary ---
Author Organization [facility] Medical [facility] Address [address] [place] [address] Care Team Providers Care Collections And Archives Director Name Role Phone Wesley Em MD Primary Care Provider [phone] Trey Pinedo MD Unavailable [phone] Reason for Visit * Reason Comments Follow-up Encounter Details Date Type Department Care Team (Late st Contact Info) Description 06/03/2021 3:00 PM HONEYCOMB DECAPPER Office Visit [facility] [address] [facility] [address] [place] [address] Wesley Em MD [address] [place] [id number] Polycythemia (Primary Dx); Overweight with body mass index (BMI) of 27 to 27.9 in adult; Bilateral carotid artery disease (CMS/HCC) (HCC); Mixed hyperlipidemia; Essential hypertension Social History Tobacco Use Types [...] than three times a week 12/31/2020 Attends Zoroastrian Services Not on file 12/31 Active Member [...] on file 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 HONEYCOMB DECAPPER Gender Identity Not on file Sexual Orientation Straight 01/23/2021 10 :16 PM CDT documented as of this encounter Last Filed Vital Signs Vital Sign Reading Time Taken Comments Blood Pressure 120/80 06/03/2021 3:10 PM HONEYCOMB DECAPPER Pulse 68 06/03/2021 3:10 PM HONEYCOMB DECAPPER Temperature - - Respiratory Rate 20 06/03/2021 3:10 PM HONEYCOMB DECAPPER Oxygen Saturation - - Inhaled Oxygen Concentration - - Weight 85.7 kg (189 lb) 06/03/2021 3:10 PM HONEYCOMB DECAPPER Height 177.8 cm (5' 10 ) 06/03/2021 3:10 PM HONEYCOMB DECAPPER Body Mass Index 27.12 06/03/2021 3:10 PM HONEYCOMB DECAPPER documented in this encounter Progress Notes * Wesley Em MD - 06/03/2021 3:00 PM CST Subjective/Objective Patient ID: Villa Zuniga is a 75 y.o. male. Chief Complaint Follow-up HPI Davidson seen today with His son TARIK MONTANEZ states that he is taking his medication very sporadically he states that Davidson will make sure his Summer gets her medications but then forgets to take his despite TARIK taking the time to package in in late amount and making it pretty easy for Davidson to take him on a regular basis Review of Systems patient Sanjay vascular surgery no surgeries need for his carotid disease as of yetthey do a follow-up in 1 year patient is currently asymptomatic as far as peripheral arterial disease and they are simply going to watch that for any kind a complications that could develop Vitals: 06/03/21 1510 BP: 120/80 BP Location: Left arm Patient Position: Sitting Pulse: 68 Resp: 20 Weight: 85.7 kg (189 lb) Height: 177.8 cm (5' 10 ) Physical Exam his blood pressure confirmed lungs clear cardiovascular regular extremities no edema Assessment/Plan Diagnoses and all orders for this visit: Polycythemia (Primary) he is undergoing phlebotomy with good results last CBC look wonderful thanks to Hematology Oncology Overweight with body mass index (BMI) of 27 to 27.9 in adult encourage 45 minutes brisk walk daily carb counting Bilateral carotid artery disease (CMS/HCC) (HCC) follow-up vascular surgery next year's plan Mixed hyperlipidemia compliance with medication recommend Essential hypertension compliance with medication recommend Side effects, risks, interactions reviewed with patient. Indications for testing discussed. Any further problems to contact us. He was told what to look out for and verbalized understanding. The patient was given the opportunity to have all questions answered today and was in agreement with the plan of care. YCOMB DECAPPER documented in this encounter Plan of Treatment Not on file documented as of this encounter Visit Diagnoses Diagnosis Polycythemia- Primary Polycythemia, secondary Overweight with body mass index (BMI) of 27 to 27.9 in adult Bilateral carotid artery disease (HCC) Unspecified disorders of arteries and arterioles Mixed hyperlipidemia Essential hypertension Unspecified essential hypertension documented in this encounter Care Teams Collections And Archives Director Relationship Specialty Start Date End Date Wesley Em MD PCP - General 09/30/16 12/01/21 Trey Pinedo MD [address] [place] [address] Consulting Physician Neurology 05/09/19 documented as of this encounter
--- OUTSIDE RECORDS SUMMARY | 2024-06-18 18:08 | XMS_ITS | Encounter Summary ---
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
--- OUTSIDE RECORDS SUMMARY | 2024-06-18 18:08 | XMS_ITS | Encounter Summary ---
Author Organization [facility] Medical Group Address [address] [facility] [address] [place] [address] Care Team Providers Care Interior Decorator Painting Name Role Phone Wesley Em MD Primary Care Provider [phone] Trey Pinedo MD Unavailable [phone] Encounter Details Date Type Department Care Team (Late st Contact Info) Description 11/03/2021 Orders Only [facility] [address] [facility] [address] [place] [address] Christine Herzog MD 2 [facility] [address] [place] [address] Mayo's esophagus with dysplasia (Primary Dx) Social History Tobacco Use Types [...] on file 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
--- OUTSIDE RECORDS SUMMARY | 2024-06-18 18:08 | XMS_ITS | Encounter Summary ---
Author Organization [facility] Medical [facility] Address [address] [facility] [address] [place] [address] Care Team Providers Care Apartment Maintenance Manager Name Role Phone Wesley Em MD Primary Care Provider [phone] Trey Pinedo MD Unavailable [phone] Reason for Visit * Reason Comments Hypertension 3 week f/u rising PSA level Encounter Details Date Type Department Care Team (Late st Contact Info) Description 11/03/2021 1:00 PM CDT Office Visit [facility] [address] [facility] [address] [place] [address] Wesley Em MD [address] [place] [address] [address] [place] [address] 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); Overweight with body mass index (BMI) of 26 to 26.9 in adult; Essential hypertension; Benign prostatic hyperplasia with lower urinary tract [...] than three times a week 12/31/2020 Attends Temple Services Not on file 12/31 Active Member [...] on file 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 Gender Identity Not on file Sexual Orientation Straight 01/23/2021 10 :16 PM CDT documented as of this encounter Last Filed Vital Signs Vital Sign Reading Time Taken Comments Blood Pressure 130/80 11/03/2021 1:09 PM CDT Pulse 78 11/03/2021 1:09 PM CDT Temperature - - Respiratory Rate 22 11/03/2021 1:09 PM CDT Oxygen Saturation - - Inhaled Oxygen Concentration - - Weight 85.3 kg (188 lb) 11/03/2021 1:09 PM CDT Height 177.8 cm (5' 10 ) 11/03/2021 1:09 PM CDT Body Mass Index 26.98 11/03/2021 1:09 PM CDT documented in this encounter Progress Notes * Wesley Em MD - 11/03/2021 1:00 PM CDT Subjective/Objective Patient ID: Villa Zuniga is a 76 y.o. male. Chief Complaint Hypertension (3 week f/u) and rising PSA level HPI patient seen today with his son TARIK he is take his medications lab work Mirella workup looks okay he is back on his finasteride and will going to check a PSA in a few months to make sure the PSA is coming down if it is not coming down that he will need urological consultation His HDL cholesterol is above 40 his LDL cholesterol is less than 100 he is take his medication compliantly now with the guidance of his son Review of Systems patient is following up with Dr. 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 [...] 2 diabetes mellitus with hyperlipidemia (HCC)- Primary Overweight with body mass index (BMI) of 26 to 26.9 in adult Essential hypertension Unspecified essential hypertension Benign prostatic hyperplasia with lower urinary tract symptoms, symptom details unspecified documented in this encounter Care Teams Apartment Maintenance Manager Relationship Specialty Start Date End Date Wesley Em MD PCP - General 09/30/16 12/01/21 Trey Pniedo MD [address] [facility] [address] [place] [address] [place] [address] [address] Consulting Physician Neurology 05/09/19 documented as of this encounter
--- OUTSIDE RECORDS SUMMARY | 2024-06-18 18:08 | XMS_ITS | Encounter Summary ---
Author Organization [facility] Address [address] [place] [address] Care Team Providers Care Licensed Practical Nurse Name Role Phone Trey Pinedo MD Unavailable [phone] Christine Herzog MD Primary Care Provide r Reason for Visit * Reason Comments Fall Weakness - Generalized Encounter Details Date Type Department Care Team (Latest Contact Info) Description 12/08/2021 8:31 PM CDT - 12/10/2021 3:40 PM CDT Hospital Encounter [facility] [address] [place] [address] Prema Zaman MD [address] [place] [address] [address] [place] [address] Galina Chambers MD [address] [place] [address] [address] [place] [address] Arlene Alvarado MD [address] [place] [address] [address] [place] [address] Closed fracture of one rib of right side, initial encounter (Primary Dx); Elevated brain natriuretic peptide (BNP) level; Generalized weakness; Frequent falls Discharge Disposition: Discharge to home, home health [...] than three times a week 12/31/2020 Attends [employer] Not on file 12/31 Active Member [...] on file 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 [employer] Gender Identity Not on file Sexual Orientation Straight 01/23/2021 10 :16 PM CDT documented as of this encounter Last Filed Vital Signs Vital Sign [place] Time Taken Comments Blood Pressure 148/78 12/10/2021 7:00 AM CDT Pulse 64 12/10/2021 9:24 AM CDT Temperature 36.2 ??C (97.2 ??F) 12/10/2021 7:00 AM CD T Respiratory Rate 20 12/10/2021 7:00 AM CDT Oxygen Saturation 98% 12/10/2021 7:00 AM CDT Inhaled Oxygen Concentration - - Weight 82.3 kg (181 lb 7 oz) 12/09/2021 12:51 AM CDT Height 175.3 cm (5' 9 ) 12/09/2021 12:51 AM CDT Body Mass Index 26.79 12/09/2021 12:51 AM CDT documented in this encounter Discharge Diagnoses Diagnosis Fracture of one rib, right side, initial encounter for closed fracture - FRACTURE OF ONE RIB, RIGHT SIDE, INITIAL ENCOUNTER FOR CLOSED FRACTURE Do not resuscitate - DO NOT RESUSCITATE Type 2 diabetes mellitus without complications (CMS/HCC) (HCC) - TYPE 2 DIABETES MELLITUS WITHOUT COMPLICATIONS Essential (primary) hypertension - ESSENTIAL (PRIMARY) HYPERTENSION Unspecified essential hypertension Chronic obstructive pulmonary disease, unspecified (HCC) - CHRONIC OBSTRUCTIVE PULMONARY DISEASE, UNSPECIFIED Hyperlipidemia, unspecified - HYPERLIPIDEMIA, UNSPECIFIED Atherosclerotic heart disease of [place] coronary artery without angina pectoris - ATHEROSCLEROTIC HEART DISEASE OF [place] CORONARY ARTERY WITHOUT ANGINA PECTORIS Fall on same level from slipping, tripping and stumbling without subsequent striking against object, initial encounter - FALL ON SAME LEVEL FROM SLIPPING, TRIPPING AND STUMBLING WITHOUT SUBSEQUENT STRIKING AGAINST OBJECT, Anorexia - ANOREXIA Other specified abnormal findings of blood chemistry - OTHER SPECIFIED ABNORMAL FINDINGS OF BLOOD CHEMISTRY Repeated falls - REPEATED FALLS Contact with and (suspected) exposure to covid-19 - CONTACT WITH AND (SUSPECTED) EXPOSURE TO COVID-19 Presence of coronary angioplasty implant and graft - PRESENCE OF CORONARY ANGIOPLASTY IMPLANT AND GRAFT Personal history of nicotine dependence - PERSONAL HISTORY OF NICOTINE DEPENDENCE Family history of ischemic heart disease and other diseases of the circulatory system - FAMILY HISTORY OF ISCHEMIC HEART DISEASE AND OTHER DISEASES OF THE CIRCULATORY SYSTEM Family history of diabetes mellitus - FAMILY HISTORY OF DIABETES MELLITUS Allergy status to other antibiotic agents - ALLERGY STATUS TO OTHER ANTIBIOTIC AGENTS Other [facility] (current) drug therapy - OTHER SENIOR CARE (CURRENT) DRUG THERAPY 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 (current) use of antithrombotics/antiplatelets - LIN[employer] NETWORK SYSTEMS ADMINISTRATOR (CURRENT) USE OF ANTITHROMBOTICS/ANTIPLATELETS assisted (current) use of aspirin - SENIOR CARE (CURRENT) USE OF ASPIRIN Body mass index (BMI) 27.0-27.9, adult - BODY MASS INDEX [BMI] 27.0-27.9, ADULT documented in this encounter Discharge Summaries * Arlene Alvarado MD - 12/10/2021 12:28 PM CDT Inpatient Discharge Summary BRIEF OVERVIEW Admitting Provider: Galina Chambers MD Discharge Provider: Arlene Alvarado MD Primary Care Physician at Discharge: Christine Herzog MD [phone] Admission Date: 12/08/2021 Discharge Date: 12/10/2021 Admission Location: [facility] Problems/Diagnoses: Principal Problem: Closed fracture of one rib of right side Active Problems: Hyperlipidemia Essential hypertension Coronary artery disease involving [place] coronary artery of [place] heart without angina pectoris Closed fracture of one rib of right side, initial encounter Generalized weakness Resolved Problems: No resolved hospital problems. DETAILS OF HOSPITAL STAY Presenting Problem/History of Present Illness: Villa Zuniga is a 76 y.o. y/o male with PMH of CAD, HTN, COPD, who presented to the ED with c/ogeneralized weakness and right flank pain following a fall. Patient slipped and fell one week ago in the bath tub and hit his right flank. He did not have too much pain following the incident, but later developed generalized weakness so he had outpatient physical therapy ordered by his PCP. Patientwas about to begin his PT yesterday, but had severe pain and could not participate. ?? Hospital Course: In the ED patient had a high BP initially. Labs were unremarkable except for pro BNP of 2000. CT head showed mild progression of chronic senescent changes, no acute findings. CT C spine showed an intact spine. CT abdomen noted with a mildly displaced acute fracture of the right posterior 10th rib. Patient was admitted for pain control and physical therapy. Patient reports adequate control of pain with lidocaine patches and prn oxycodone. Participated well with PT. correctional case manager consulted, and able to have home PT arranged for this patient. Patient's other medical conditions remained stable. Lidocaine patches and oxycodone prescribed upon discharge. Follow up with PCP. Time spent: 33 mins Active Issues Requiring Follow-up: Test Results Pending at Discharge: Operative Procedures Performed: Other Procedures: Pertinent Test Results: Radiology: ECG 12 lead ?? Result Date: 12/09/2021 Narrative: Vent Rate: 60 bpm RR Interval: 993 msec [place] Interval: 239 msec QRS Duration: 121 msec QT Interval: 468 msec QTC Interval: 469 msec P-R-T [place]: -39 - -55 - 77 degrees SINUS RHYTHM WITH FIRSTDEGREE AV BLOCK WITH OCCASIONAL VENTRICULAR PREMATURE COMPLEXES Left atrial enlargement POSSIBLE RIGHT VENTRICULAR CONDUCTION DELAY [RSR (QR) IN V1/V2] LEFT ANTERIOR FASCICULAR BLOCK [QRS AXIS <= -45, QR IN I, RS IN II] LEFT VENTRICULAR HYPERTROPHY AND ST-T CHANGE [VOLTAGE CRITERIA PLUS ST/T ABNORMALITY] POSSIBLE SEPTAL MYOCARDIAL INFARCTION , OF INDETERMINATE AGE [30 ms Q WAVE IN V1/V2] ABNORMAL ECG No change from prior EKG Electronically Signed By: Jason Shaw MD ?? XR Ribs Right W PA Chest 3 or More Views ?? Result Date: 12/08/2021 Narrative: EXAM DESCRIPTION: XR RIBS RIGHT W PA CHEST REASON FOR STUDY: pain after fall last week c/o mid right back and right rip pain after falling getting out of the bath last week. Pt reports dizziness. No prior injury to right side ribs but has had fractured ribs on left side in the past. TECHNIQUE: Frontal view of the chest and two additional views of the right ribs acquired. COMPARISON: Chest radiograph 05/08/2019 FINDINGS: LUNGS/PLEURA: Minimal atelectasis at each lung base. No discreteconsolidation. No effusion or pneumothorax. HEART/MEDIASTINUM: Cardiac silhouette and mediastinal contours are within normal limits. Atherosclerotic calcification of the thoracic aorta. RIBS: No definite acute displaced rib fracture. Evaluation of the inferior ribs limited due to overlapping soft tissue structures. HARDWARE/LINES/TUBES: None. BONES: There is thoracic spondylosis and degenerative disc disease. Scoliotic curvature of the thoracolumbar spine is noted. Evaluation of the thoracic travis tebral bodies limited on this study. OTHER: No other significant finding. IMPRESSION: 1. No consolidation, effusion or pneumothorax. 2. No appreciable displaced right rib fracture. Inferior ribs limited in assessment due to overlapping soft tissue structures. 3. Scoliotic curvature, spondylosis and degenerative disc disease involving the thoracic and lumbar spine THIS IS AN ELECTRONICALLY VERIFIED FINAL REPORT 12/08/2021 6:27 PM - Electronically signed by Ysabel Bauer M.D. TB: TB Report ID: [id number] [place] Location: [id number] ?? CT Head WO Contrast ?? Result Date: 12/08/2021 Narrative: EXAM DESCRIPTION: CT HEAD WO CONTRAST REASON FOR STUDY: Status post fall today out of a bath tub, hitting the right rib area. Pain on the right ribs that radiates posteriorly. No other prior injury. Patient has fractured ribs on the left side in the past. TECHNIQUE: Axial images acquiredthrough the brain without intravenous contrast. Images stored on PACS. Automated exposure control was used as a dose optimization technique for this examination. 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 Bilateral periventricular white matter low densities and mild cerebral atrophy has progressed. Ventricles are within normal limits insize and configuration. EXTRA-AXIAL SPACES: No fluid collections. No masses. CALVARIUM: No fracture. SINUSES/MASTOIDS: No fluid or mucosal thickening. ORBITS: No significant abnormality. OTHER: No other significant abnormality. IMPRESSION: 1. No acute intracranial findings. Calvarium intact. 2. Mild progression of chronic senescent changes including bilateral periventricular chronic white matter i schemia and mild generalized cerebral atrophy. THIS IS AN ELECTRONICALLY VERIFIED FINAL REPORT 12/08/2021 9:51 PM - Electronically signed by Trey Siegel M.D. ML: BERNIE T: 12/08/2021 9:51 PM Report ID: [id number] [place] Location: [id number] ?? CT Cervical Spine WO Contrast ?? Result Date: 12/08/2021 Narrative: EXAM DESCRIPTION: CT CERVICAL SPINE WO CONTRAST REASON FOR STUDY: Status post fall todayout of a bath tub, hitting the right rib area. Pain on the right ribs that radiates posteriorly. Noother prior injury. Patient has fractured ribs on the left side in the past TECHNIQUE: Axial imagesthrough the cervical spine with sagittal and coronal reformatted images. Automated exposure controlwas used as a dose optimization technique for this examination. COMPARISON: 05/25/2021 FINDINGS: ALIGNMENT: Minimal anterolisthesis of C3 on C4 and C4 on C5 is stable. VERTEBRAE: No fracture. Vertebral body heights well- maintained. DISCS: Diffuse mild and moderate degenerative disc space narrowing t hroughout the cervical spine, most advanced at C5/6 and C6/7, with associated endplate osteophyte formation, is stable. HARDWARE: None in the spine. INDIVIDUAL DISC LEVELS: No significant osseous spinal canal stenosis. Mild to moderate bilateral C5/6 neural foraminal stenosis due to uncovertebral hy pertrophy redemonstrated. UPPER THORACIC: Incompletely imaged. No significant osseous spinal stenosis or osseous neural foraminal stenosis. SKULL BASE: No significant finding. LUNG APICES: No significant abnormality. NECK SOFT TISSUES: No significant abnormality including prevertebral soft tissue hematoma.. OTHER: No other significant findings. IMPRESSION: Intact cervical spine with stable spinaldegenerative changes more advanced from C5-C7. THIS IS AN ELECTRONICALLY VERIFIED FINAL REPORT 12/08/2021 10:04 PM - Electronically signed by Trey Siegel M.D. ML: ML Report ID: [id number] [place] Location: [place] [address] [address] Chest Abdomen Pelvis WO Contrast ?? Result Date: 12/08/2021 Narrative: EXAM DESCRIPTION: CT CHEST ABDOMEN PELVIS WO CONTRAST REASON FOR STUDY: Status post falltoday out of a bath tub, hitting the right rib area. Pain on the right ribs that radiates posteriorly. No other prior injury. Patient has fractured ribs on the left side in the past. TECHNIQUE: CT scan of the chest, abdomen, and pelvis performed without intravenous and without oral contrast using helical scanning technique. Reconstructed coronal and sagittal MPR images reviewed. All images storedon PACS. Automated exposure control was used as a dose optimization technique for this examination.COMPARISON: 12/28/2020 FINDINGS: The sensitivity for detection of visceral lesions is diminished wit hout the use of intravenous contrast. CHEST LUNGS: Mild dependent atelectasis of the left lung and in the right lung base. No confluent consolidation or suspicious nodules. PLEURA: No effusion. No pneumothorax. MEDIASTINUM/BRIAN: No identified masses or abnormal nodes. HEART: Heart size is normal with trace pericardial effusion. Dense 3 vessel coronary artery atherosclerotic calcification present.VASCULATURE CHEST: No thoracic aortic aneurysm. AXILLA: No adenopathy. CHEST WALL: No masses. No subcutaneous air. HARDWARE/LINES/TUBES: None. MUSCULOSKELETAL CHEST: Mild diffuse spinal degenerative changes. A mildly displaced acute fracture is seen in [...] No significant calcifications. No adjacent inflammation or peripancreaticfluid collections. Pancreatic duct not dilated. ADRENALS: Normal. KIDNEYS/URINARY TRACT: Multifocalmild renal cortical scarring of the left kidney, likely sequela of prior infection. No identified significant cystic or solid masses. A 3 mm stone is present in superior pole of the left kidney. No hydronephrosis or hydroureter. A 4.2 cm cyst again seen in the lower pole of the left kidney. Urinarybladder is unremarkable. GI: No dilated bowel loops. No obvious wall thickening. Normal appendix. Multiple diverticula again seen in the descending and sigmoid colon, with minimal pericolonic fat stranding adjacent to the sigmoid colon which appears decreased from prior. PERITONEUM: No ascites or free air. RETROPERITONEUM: No mass or adenopathy. REPRODUCTIVE: Moderate prostate enlargement is stable. VASCULATURE ABDOMEN: Moderate aortoiliac atherosclerotic calcifications. No abdominal aortic aneurysm. MUSCULOSKELETAL ABDOMEN PELVIS: Mild diffuse degenerative disc disease in the lumbar spine. No suspicious osseous lesions or acute fractures. OTHER: A moderate size fat containing umbilical hernia is unchanged. IMPRESSION: 1. Mildly displaced acute fracture of the right posterior 10th rib. 2.Significant three-vessel coronary artery atherosclerotic calcification. No acute process in the chest. 3. Sigmoid diverticulosis with mild pericolonic fat stranding which is decreased compared to prior study, possibly sequela of prior diverticulitis, with an acute episode of mild/uncomplicated diverticulitis not completely excluded. Recommend correlation with any symptoms of lower abdominal/pelvic pain. 4. 3 mm nonobstructing left renal stone. 5. Stable moderate prostate enlargement. 6. Stable moderate size fat containing umbilical hernia. THIS IS AN ELECTRONICALLY VERIFIED FINAL REPORT 12/08/2021 10:00 PM - Electronically signed by Trey Siegel M.D. ML: ML Report ID: [id number] [place] Location: [place] [address] ?? Discharge Details Physical Exam at Discharge: Discharge Condition: stable Pulse: 64 Resp: 20 BP: 148/78 Temp: 36.2 ??C (97.2 ??F) Weight: 82.3 kg (181 lb 7 oz) Pertinent Exam Findings at Discharge: Gen: awake, no acute distress, pleasant and cooperative Neuro: no focal deficits, CN II-XII grossly intact Eyes: extraocular movement intact, sclerae anicteric HENT: supple, no JVD CV: regular rate and rhythm; no murmurs, rubs, or gallops; no peripheral edema; 2+ pulses in all extremities Pulm: clear to auscultation bilaterally; no wheezes, rales, or rhonchi GI: soft, non-tender, non-distended MSK: no cyanosis, clubbing Skin: warm, dry Psych: normal mood and affect Discharge Disposition: Code Status at Discharge: DNR Discharge Instructions: Activity Instructions Discharge activity: Resume normal activity Diet Instructions Adult Discharge Diet Diet Type: Return to previous diet Other Instructions Ambulatory referral to Home Health Service Line: Home Health Primary disciplines requested: Physical Therapy Secondary disciplines requested: Occupational Therapy Home Health Services: Therapy to Eval/Tx Therapy instructions: Evaluation/treatment Requested [...] face to face encounter occurred on (date): 12/09/2021 The encounter with the patient was in whole, or in part, for the following medical condition, whichis the primary reason for home health care. (List medical condition): closed fracture of one rib ofright side I certify that, based on my findings, the following services are medically necessary skilled home health services: Therapy to Eval/Tx Clinical findings that support the need for home care: Medical condition requiring skilled assessment/education I certify that my clinical findings support patient's homebound status. Homebound criteria met because: Abnormal gait/unsteady balance resulting in fall risk Pain with minimal activity or rest Call provider for: Temperature -Temperature greater than 101 degrees F Call provider for: difficulty breathing or chest pain Call provider for: extreme fatigue Call provider for: hives Call provider for: persistent dizziness or light-headedness Call provider for: persistent nausea or vomiting Call provider for: redness, tenderness, or signs of infection (pain, swelling, redness, odor or green/yellow discharge around incision site) Call provider for: severe uncontrolled pain Call provider for: headache, visual disturbances, weakness and speech changes Discharge Medications: Current Medications TAKE these medications aspirin 81 mg enteric coated tablet Take one by mouth one time per day atorvastatin 40 mg tablet Take 1 tablet (40 mg total) by mouth daily Commonly known as: LIPITOR clopidogreL 75 mg tablet Take 1 tablet (75 mg total) by mouth daily Commonly known as: PLAVIX finasteride 5 mg tablet Take 1 tablet (5 mg total) by mouth daily Commonly known as: PROSCAR lidocaine 5 % Place 1 patch on the skin daily Remove & discard patch within 12 hours or as directed by MD. Commonly known as: LIDODERM Start taking on: December 11, 2021 metoprolol XL 50 mg extended release tablet Take 1 tablet (50 mg total) by mouth daily Commonly known as: TOPROL-XL oxyCODONE 5 mg immediate release tablet Take 1 tablet (5 mg total) by mouth every 8 (eight) hours as needed for pain for up to 5 days For: pain Commonly known as: ROXICODONE Outpatient Follow-Up: Future Appointments Date Time Provider Department Center 12/15/2021 3:30 PM Christine Herzog MD [facility] 12/22/2021 12:45 PM [facility] 1 [facility] Medical 12/22/2021 1:00 PM [facility] 1 [facility] Medical 02/23/2022 12:45 PM [facility] 1 [facility] CC PHYS [facility] Medical 02/23/2022 1:00 PM [facility] 1 [facility] Medical 03/10/2022 4:00 PM Christine Herzog MD [facility] 04/27/2022 10:15 AM [facility] 1 [facility] Medical 04/27/2022 10:45 AM Chintan Figueroa MD ONC [facility] B134 [facility] 04/27/2022 11:00 AM [facility] 1 [facility] Medical 05/24/2022 2:00 PM [facility] BCT4 BJ N CT [facility] Main IMG 05/24/2022 2:30 PM [facility] CAM ROOM C [facility] CAM8D [facility] 05/24/2022 3:30 PM Gadiel Genao MD VASC CAM 8A [facility] Contact Information for Follow-ups Christine Herzog MD Specialty: Family Medicine Relationship: PCP - General [address] [facility] [place] [address] Next Steps: Follow up on 12/15/2021 Instructions: 3:30 PM documented in this encounter Discharge Instructions * Attachments The following attachments cannot be sent through Care Everywhere. * Lidocaine Patch (On the skin) (Mexican) * Oxycodone/Acetaminophen (By mouth) (Mexican) documented in this encounter Medications at Time [...] by . 30 patch 12/11/2021 2 metoprolol XL (TOPROL-XL) 50 mg extended release tablet Take 1 tablet (50 mg total) by mouth daily 90 tablet 3 11/05/2021 3 documented as of this encounter Ordered Prescriptions Prescription Sig Dispense Quantity Refills Last Filled Start Date End Date oxyCODONE (ROXICODONE) 5 mg immediate release tabletIndications: Pain Take 1 tablet (5 mg total) by mouth every 8 (eight) hours as needed for pain for up to 5 days 15 tablet 12/10/2021 2 lidocaine (LIDODERM) 5 % Place 1 patch on the skin daily Remove & discard patch within 12 hours or as directed by . 30 patch 12/11/2021 2 oxyCODONE (ROXICODONE) 5 mg immediate release tabletIndications: Pain Take 1 tablet (5 mg total) by mouth every 8 (eight) hours as needed for pain for up to 5 days 15 tablet 12/10/2021 2 documented in this encounter Discharge Disposition Disposition Code Departure Means Destination Discharge to home, home health skilled care documented in this encounter Progress Notes * Keaton Anderson, MUSICAL INSTRUMENT SUPERVISOR - 12/10/2021 2:50 PM CDT Physical Therapy 12/10/21 1000 PT Last Visit Session Type Treatment PT Received On 12/10/21 Pain Assessment Pain Assessment 0-10 Pain Score 3 Pain Location Rib cage Cognition Overall Cognitive Status WFL Seated Seated-Exercises Lower extremity Reps/Sets 15 Seated-Motion AROM Bed Mobility 1 Bed Mobility Comments 1 NT Transfer 1 Transfer From 1 Sit Transfer Type 1 To and from Transfer to 1 Stand Transfer Device 1 Wheeled walker Transfer Level of Assistance 1 Standby Assist Ambulation 1 Distance (ft) 1 120' x 2 Surface 1 Level tile Device 1 Wheeled walker Assistance 1 Standby Assist Assessment Prognosis Good Plan Plan If this is the last note, consider this the discharge summary Recommendation/Plan PT Recommendation/Plan Home with family;Home with intermittent assist Multi-Disciplinary Problems (from Physical Therapy) Active Problems Problem: PT Misc Start Date: 12/09/21 Goal Start Date Expected End Date End Date PT LTG - Misc 1 12/09/21 12/16/21 -- Goal Details: Pt to require/be indep with bed mobility consistently to increase functional mobility. Goal Start Date Expected End Date End Date [place] [facility] [place] 12/09/21 12/16/21 -- Goal Details: Pt to require/be indep>sba with all transfers consistently to increase functional mobility and safety. Goal Start Date Expected End Date End Date [place] [facility] [place] 12/09/21 12/16/21 -- Goal Details: Pt to ambulate 75-100' sba>indep with a fww consistently, to increase functional mobility and safety. Goal Start Date Expected End Date End Date PT LTG - [facility] 4 12/09/21 12/16/21 -- Goal Details: Pt to ascend/descend 2 steps cga>min assist, with the use of 1 handrail/s, consistently to increase functional independence and safety in order to return home. * Walt Silver RN - 12/10/2021 9:34 AM CDT Patient was accepted with [facility] for PT and OT. Start of care date of 12/13 or 12/14. [facility]: [phone] * Gadiel Biggs, PT - 12/09/2021 5:33 PM CDT Physical Therapy 12/09/21 1646 General Chart Reviewed Yes Session Type Evaluation PT Received On 12/09/21 Safe Environment Arm Band Checked;Call Light within Reach;Notified RN;Patient found in Supine;Patient found sitting in Chair Subjective Agreeable to Therapy Family/Caregiver Present Yes Physical Therapy-Patient Goal return home Precautions Precautions Fall risk Home Living Type of Home House Home Layout One level Home Access Stairs to enter with rails Entrance Stairs-Rails Left Entrance Stairs-Number of Steps 2 Home Mobility Equipment Wheeled walker;Single point cane Additional Comments has been using the fww x 2 wks and relates this to his dec balance that makes him feel like he is falling bwd Prior Function Level of [place] Independent with ADLs;Independent functional transfers;Independent with ambulation Lives With Spouse Receives Help From Family (son lives 45 mins away) Driving Yes Fall within the last 6 months Yes Fall within the last 6 months comment fell and hit back/scapular area on right and fx rib Pain Assessment Pain Assessment 0-10 Pain Score 0 - No pain (when rib hurts it is a 10/10) Pain Type Acute pain Pain Location Rib cage Pain Orientation Right;Outer (lateral aspect) Cognition Cognition Comments decreased awareness of date and year Overall Cognitive Status WFL Orientation Oriented to person;Oriented to place Compliance/Behavior Easy to engage Balance Balance Yes Static Sitting Balance Static Sitting-Balance Support Bilateral upper extremity supported;Feet supported Static Sitting-Sitting Surface Chair Static Sitting-Level of Assistance Independent;Close supervision Static Sitting-Comment/# of Minutes pt is cautious and worried about all movement Static Standing Balance Static Standing-Balance Support Bilateral upper extremity supported Static Standing-Standing Surface Floor Static Standing-Level of Assistance Contact guard Static Standing-Comment/# of Minutes cga for safety, fear of falling Bed Mobility 1 Bed Mobility Comments 1 NT Transfer 1 Transfer From 1 Chair with arms;Sit Transfer Type 1 To and from Transfer to 1 Stand Technique 1 Sit to stand;Stand to sit Transfer Device 1 Wheeled walker Transfer Level of Assistance 1 Contact Guard Assist Trials/Comments 1 caution related to recent fall and fear of falling Ambulation 1 Distance (ft) 1 60' Surface 1 Level tile Device 1 Wheeled walker Assistance 1 Contact Guard Assist Gait: Requires assist with 1 Maintaining balance (safety) Gait: Requires verbal cues to 1 Use assistive device safely (use appropriate gaze in attempt to decrease feeling of being dizzy) Quality of Gait 1 dec; rocky, step length Ambulation Comments 1 pt cautious with all movements fear of falling RLE Assessment RLE Assessment WFL LLE Assessment LLE Assessment WFL Assessment Prognosis Good Problem List Gait deviations;Impaired balance;Decreased mobility Plan Plan Plan of care initiated;If this is the last note, consider this the discharge summary Recommendation/Plan PT Recommendation/Plan Home with family;Home with intermittent assist PT Recommendation/Plan Comments f/u with prior recommended OP PT PT Frequency Daily Treatment/Interventions Bed mobility;Functional transfer training;Gait training;Therapeutic exercise PT Equipment Recommended None (cont to use fww for safety at home) PT Evaluation Complete Yes Multi-Disciplinary Problems (from Physical Therapy) Active Problems Problem: [place] [facility] [place]: 12/09/21 Goal Start Date Expected End Date End Date PT [facility] 1 12/09/21 12/16/21 -- Goal Details: Pt to require/be indep with bed mobility consistently to increase functional mobility. Goal Start Date Expected End Date End Date PT [facility] 2 12/09/21 12/16/21 -- Goal Details: Pt to require/be indep>sba with all transfers consistently to increase functional mobility and safety. Goal Start Date Expected End Date End Date PT L[facility] - Misc 3 12/09/21 12/16/21 -- Goal Details: Pt to ambulate 75-100' sba>indep with a fww consistently, to increase functional mobility and safety. Goal Start Date Expected End Date End Date PT LTG - Misc 4 12/09/21 12/16/21 -- Goal Details: Pt to ascend/descend 2 steps cga>min assist, with the use of 1 handrail/s, consistently to increase functional independence and safety in order to return home. * Vero Thomas, OT - 12/09/2021 10:59 AM CDT Occupational Therapy Initial Evaluation Past Medical History: Diagnosis Date Mayo esophagus Chronic obstructive pulmonary disease (CMS/HCC) (HCC) COPD Diabetes mellitus (HCC) Diabetes GERD (gastroesophageal reflux disease) HX OTHER MEDICAL 2013 Heart stents HX OTHER MEDICAL urinary stent s placed Hyperlipidemia Hyperlipidemia Hypertension Hypertension 12/09/21 1021 General Chart Reviewed Yes Session Type Evaluation OT Received On 12/09/21 Subjective Agreeable to Therapy Subjective Comment I love to soak in warm water in my tub Additional Pertinent History Admitted with fall resulting in right rib fracture Family/Caregiver Present Yes Occupational Therapy-Patient Goal Son goal is for patient to return home safely Precautions Precautions Bed/Chair Alarm;Fall risk Home Living Type of Home House Home Layout One level Home Access Stairs to enter with rails Entrance Stairs-Number of Steps 3 Bathroom Shower/Tub Tub/shower unit Bathroom Equipment Shower chair;Hand-held shower Home Mobility Equipment Wheeled walker Prior Function Level of [place] Needs assistance with ADLs;Independent functional transfers;Independent with ambulation;Needs assistance with homemaking Lives With Spouse Receives Help From Spouse/Significant other;Family Driving Yes Fall within the last 6 months Yes Fall within the last 6 months comment Reason for admission- fall getting out of tub. Hx of fall prior getting out of tub. Prior Function Comments Son checks in on patient/spouse weekly. Spouse is having cognitive decline Toilet Transfers Toilet Transfer Type To and from Toilet Transfer to Raised toilet seat with rails Toilet Transfer Technique Ambulating Toilet Transfer: Equipment Wheeled walker Toilet Transfers Contact guard Toilet Transfers Comments Decreased balance, shuffled gait Pain Assessment Pain Assessment 0-10 Pain Score 5 - Moderate pain Pain Type Acute pain Pain Location Rib cage Pain Orientation Right Cognition Cognition Comments Forgetfulness Overall Cognitive Status Impaired Orientation Oriented X4 (person, place, time, situation) Bed Mobility 1 Bed Mobility From 1 Supine Bed Mobility Type 1 To Bed Mobility to 1 Edge of bed Level of Assistance 1 Standby Assist Transfer 1 Transfer From 1 Sit;Bed Transfer Type 1 To Transfer to 1 Stand Technique 1 Sit to stand;Stand to sit Transfer Device 1 Wheeled walker Transfer Level of Assistance 1 Contact Guard Assist Trials/Comments 1 Hx of fall RUE Assessment RUE Assessment WFL LUE Assessment LUE Assessment WFL Assessment Prognosis Excellent Problem List Decreased safe judgment during ADL;Decreased balance;Decreased functional mobility;Decreased ADL independence;Pain Plan Plan Plan of care initiated;If this is the last note, consider this the discharge summary Recommendation/Plan OT Recommendation Home Health OT;Home with family Patient at high risk for Falls OT Recommendation/Plan Comments Discussed in length modification of getting in/out of tub no longerbeing a safe option for patient. Patient/son in agreement. OT recommending OT home safety assessment. OT Frequency 2-3x/wk (Monday-Monday, Sat. prn) Treatment/Interventions ADL/IADL retraining;Functional mobility training;Functional transfer training OT Evaluation Complete Yes Multi-Disciplinary Problems (from Occupational Therapy) Active Problems Problem: Grooming Start Date: 12/09/21 Goal Start Date Expected End Date End Date STG - Patient will complete grooming 12/09/21 12/16/21 -- Goal Details: in stance with independence Problem: Toileting Start Date: 12/09/21 Goal Start Date Expected End Date End Date STG - Patient will complete toileting tasks with 12/09/21 12/16/21 -- Goal Details: independence Problem: Transfers Start Date: 12/09/21 Goal Start Date Expected End Date End Date STG - Patient will perform toilet transfer 12/09/21 12/16/21 -- Goal Details: with modified independence using wheeled walker documented in this encounter H&P Notes * Arlene Alvarado MD - 12/09/2021 12:30 PM CDT [facility] Adult Hospitalist Service History and Physical Patient Name: Villa Zuniga Patient : 1945 Age/Sex: 76 y.o. male Room/Bed: [place] [address]/[id number] Admission Date/Time: 12/08/2021 8:31 PM Date: 12/09/2021 Time: 6:33 PM Primary Care Physician: Christine Herzog MD PCP Office Location: [address] [place] [address] [address] [place] [address] PCP Chief Complaint: Fall, right flank pain, generalized weakness HPI: Villa Zuniga is a 76 y.o. y/o male with PMH of CAD, HTN, COPD, who presented to the ED with c/ogeneralized weakness and right flank pain following a fall. Patient slipped and fell one week ago in the bath tub and hit his right flank. He did not have too much pain following the incident, but later developed generalized weakness so he had outpatient physical therapy ordered by his PCP. Patientwas about to begin his PT yesterday, but had severe pain and could not participate. Patient has also had a poor appetite recently. Denies recent fever or chills. No SOB, no cough, dysuria, diarrhea. In the ED patient had a high BP initially. Labs were unremarkable except for pro BNP of 2000. CT head showed mild progression of chronic senescent changes, no acute findings. CT C spine showed an intact spine. CT abdomen noted with a mildly displaced acute fracture of the right posterior 10th rib. Patient was admitted for pain control and physical therapy. Review of Systems Constitutional: Negative for chills, fever and malaise/fatigue. HENT: Negative for congestion and sore throat. Eyes: Negative for blurred vision and double vision. Respiratory: Negative for cough and shortness of breath. Cardiovascular: Negative for chest pain and leg swelling. Gastrointestinal: Negative for abdominal pain, heartburn, nausea and vomiting. Genitourinary: Negative for dysuria and urgency. Musculoskeletal: Positive for back pain and falls. Neurological: Positive for weakness. Negative for sensory change, speech change, focal weakness, loss of consciousness and headaches. Psychiatric/Behavioral: Negative for hallucinations. The patient is not nervous/anxious. Past Medical History: Diagnosis Date ??? Mayo esophagus ??? Chronic obstructive pulmonary disease (CMS/HCC) (HCC) COPD ??? Diabetes mellitus (HCC) Diabetes ??? GERD (gastroesophageal reflux disease) ??? HX OTHER MEDICAL 2012 Heart stents ??? HX OTHER MEDICAL urinary [...] History Tobacco Use ??? Smoking status: Former Smoker Packs/day: 0.50 Years: 50.00 Pack years: 25.00 Types: Cigarettes Quit date: 2008 Years since quittin.4 ??? Smokeless tobacco: Never Used Substance Use Topics ??? Alcohol use: No Allergies Allergen Reactions ??? Ciprofloxacin Rash Reaction: RASH, Reaction: Rash, ??? Apple Medications Prior to Admission Medication Sig Dispense Refill Last Dose ??? aspirin 81 mg tablet Take one [...] by mouth daily 90 tablet 3 ??? metoprolol XL (TOPROL-XL) 50 mg extended release tablet Take 1 tablet (50 mg total) by mouth daily 90 tablet 3 Objective: Patient Vitals for the past 24 hrs: BP Temp Temp src Pulse Resp SpO2 Height Weight 12/09/21 1542 169/68 36.1 ??C (97 ??F) Temporal 71 22 97 % -- -- 12/09/21 1057 148/92 36.3 ??C (97.3 ??F) Temporal 78 24 95 % -- -- 12/09/21 0731 147/89 36.1 ??C (96.9 ??F) Temporal 63 22 97 % -- -- 12/09/21 0155 142/80 -- -- -- -- -- -- -- 12/09/21 0051 (!) 183/85 36.3 ??C (97.3 ??F) Temporal 65 24 97 % 175.3 cm (5' 9 ) 82.3 kg (181 lb 7oz) 12/08/21 2300 160/92 -- -- 68 22 96 % -- -- 12/08/21 2150 148/98 -- -- 59 22 94 % -- -- 12/08/21 2100 (!) 168/105 -- -- 63 21 97 % -- -- 12/08/21 2035 170/91 -- -- 65 28 98 % -- -- Physical Exam: Gen: awake, no acute distress, pleasant and cooperative Neuro: no focal deficits, CN II-XII grossly intact Eyes: extraocular movement intact, sclerae anicteric HENT: supple, no JVD CV: regular rate and rhythm; no murmurs, rubs, or gallops; no peripheral edema; 2+ pulses in all extremities Pulm: clear to auscultation bilaterally; no wheezes, rales, or rhonchi GI: soft, non-tender, non-distended MSK: no cyanosis, clubbing Skin: warm, dry Psych: normal mood and affect Laboratory Results: I have reviewed the pertinent labs Radiology: ECG 12 lead Result Date: 12/09/2021 Narrative: Vent Rate: 60 bpm RR Interval: 993 msec [place] Interval: 239 msec QRS Duration: 121 msec QT Interval: 468 msec QTC Interval: 469 msec P-R-T [place]: -39 - -55 - 77 degrees SINUS RHYTHM WITH FIRSTDEGREE AV BLOCK WITH OCCASIONAL VENTRICULAR PREMATURE COMPLEXES Left atrial enlargement POSSIBLE RIGHT VENTRICULAR CONDUCTION DELAY [RSR (QR) IN V1/V2] LEFT ANTERIOR FASCICULAR BLOCK [QRS AXIS <= -45, QR IN I, RS IN II] LEFT VENTRICULAR HYPERTROPHY AND ST-T CHANGE [VOLTAGE CRITERIA PLUS ST/T ABNORMALITY] POSSIBLE SEPTAL MYOCARDIAL INFARCTION , OF INDETERMINATE AGE [30 ms Q WAVE IN V1/V2] ABNORMAL ECG No change from prior EKG Electronically Signed By: Jason Shaw MD XR Ribs Right W PA Chest 3 or More Views Result Date: 12/08/2021 Narrative: EXAM DESCRIPTION: XR RIBS RIGHT W PA CHEST REASON FOR STUDY: pain after fall last week c/o mid right back and right rip pain after falling getting out of the bath last week. Pt reports dizziness. No prior injury to right side ribs but has had fractured ribs on left side in the past. TECHNIQUE: Frontal view of the chest and two additional views of the right ribs acquired. COMPARISON: Chest radiograph 05/08/2019 FINDINGS: LUNGS/PLEURA: Minimal atelectasis at each lung base. No discreteconsolidation. No effusion or pneumothorax. HEART/MEDIASTINUM: Cardiac silhouette and mediastinal contours are within normal limits. Atherosclerotic calcification of the thoracic aorta. RIBS: No definite acute displaced rib fracture. Evaluation of the inferior ribs limited due to overlapping soft tissue structures. HARDWARE/LINES/TUBES: None. BONES: There is thoracic spondylosis and degenerative disc disease. Scoliotic curvature of the thoracolumbar spine is noted. Evaluation of the thoracic travis tebral bodies limited on this study. OTHER: No other significant finding. IMPRESSION: 1. No consolidation, effusion or pneumothorax. 2. No appreciable displaced right rib fracture. Inferior ribs limited in assessment due to overlapping soft tissue structures. 3. Scoliotic curvature, spondylosis and degenerative disc disease involving the thoracic and lumbar spine THIS IS AN ELECTRONICALLY VERIFIED FINAL REPORT 12/08/2021 6:27 PM - Electronically signed by Ysabel Bauer M.D. TB: TB Report ID: [id number] Reading Location: [id number] CT Head WO Contrast Result Date: 12/08/2021 Narrative: EXAM DESCRIPTION: CT HEAD WO CONTRAST REASON FOR STUDY: Status post fall today out of a bath tub, hitting the right rib area. Pain on the right ribs that radiates posteriorly. No other prior injury. Patient has fractured ribs on the left side in the past. TECHNIQUE: Axial images acquiredthrough the brain without intravenous contrast. Images stored on PACS. Automated exposure control was used as a dose optimization technique for this examination. 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 Bilateral periventricular white matter low densities and mild cerebral atrophy has progressed. Ventricles are within normal limits insize and configuration. EXTRA-AXIAL SPACES: No fluid collections. No masses. CALVARIUM: No fracture. SINUSES/MASTOIDS: No fluid or mucosal thickening. ORBITS: No significant abnormality. OTHER: No other significant abnormality. IMPRESSION: 1. No acute intracranial findings. Calvarium intact. 2. Mild progression of chronic senescent changes including bilateral periventricular chronic white matterischemia and mild generalized cerebral atrophy. THIS IS AN ELECTRONICALLY VERIFIED FINAL REPORT 12/08/2021 9:51 PM - Electronically signed by Trey Siegel M.D. ML: ML Report ID: [id number] Reading Location: [place] [address] CT Cervical Spine WO Contrast Result Date: 12/08/2021 Narrative: EXAM DESCRIPTION: CT CERVICAL SPINE WO CONTRAST REASON FOR STUDY: Status post fall todayout of a bath tub, hitting the right rib area. Pain on the right ribs that radiates posteriorly. Noother prior injury. Patient has fractured ribs on the left side in the past TECHNIQUE: Axial imagesthrough the cervical spine with sagittal and coronal reformatted images. Automated exposure controlwas used as a dose optimization technique for this examination. COMPARISON: 05/25/2021 FINDINGS: ALIGNMENT: Minimal anterolisthesis of C3 on C4 and C4 on C5 is stable. VERTEBRAE: No fracture. Vertebral body heights well- maintained. DISCS: Diffuse mild and moderate degenerative disc space narrowing t hroughout the cervical spine, most advanced at C5/6 and C6/7, with associated endplate osteophyte formation, is stable. HARDWARE: None in the spine. INDIVIDUAL DISC LEVELS: No significant osseous spinal canal stenosis. Mild to moderate bilateral C5/6 neural foraminal stenosis due to uncovertebral hy pertrophy redemonstrated. UPPER THORACIC: Incompletely imaged. No significant osseous spinal stenosis or osseous neural foraminal stenosis. SKULL BASE: No significant finding. LUNG APICES: No significant abnormality. NECK SOFT TISSUES: No significant abnormality including prevertebral soft tissue hematoma.. OTHER: No other significant findings. IMPRESSION: Intact cervical spine with stable spinaldegenerative changes more advanced from C5-C7. THIS IS AN ELECTRONICALLY VERIFIED FINAL REPORT 12/08/2021 10:04 PM - Electronically signed by Trey Siegel M.D. ML: ML Report ID: [id number] Reading Location: [place] [id number] CT Chest Abdomen Pelvis WO Contrast Result Date: 12/08/2021 Narrative: EXAM DESCRIPTION: CT CHEST ABDOMEN PELVIS WO CONTRAST REASON FOR STUDY: Status post fall today out of a bath tub, hitting the right rib area. Pain on the right ribs that radiates posteriorly. No other prior injury. Patient has fractured ribs on the left side in the past. TECHNIQUE: CT scan of the chest, abdomen, and pelvis performed without intravenous and without oral contrast using helical scanning technique. Reconstructed coronal and sagittal MPR images reviewed. All images stored on PACS. Automated exposure control was used as a dose optimization technique for this examination. COMPARISON: 12/28/2020 FINDINGS: The sensitivity for detection of visceral lesions is diminished without the use of intravenous contrast. CHEST LUNGS: Mild [...] MUSCULOSKELETAL CHEST: Mild diffuse spinal degenerative changes. A mildly displaced acute fracture is seen in the right posterior 10th rib. No suspicious osseous lesions. ABDOMEN/PELVIS LIVER: Normal size. No identified cystic or solid masses. No cysts. GALLBLADDER: No stones identified. No wall thickening or inflammatory changes. BILE DUCTS: No intrahe patic or extrahepatic ductal dilatation. SPLEEN: Normal size. No focal lesions. PANCREAS: No identified cystic or solid masses. No significant calcifications. No adjacent inflammation or peripancreatic fluid collections. Pancreatic duct not dilated. ADRENALS: Normal. KIDNEYS/URINARY TRACT: Multifocal mild renal cortical scarring of the left kidney, likely sequela of prior infection. No identifiedsignificant cystic or solid masses. A 3 mm stone is present in superior pole of the left kidney. Nohydronephrosis or hydroureter. A 4.2 cm cyst again seen in the lower pole of the left kidney. Urinary bladder is unremarkable. GI: No dilated bowel loops. No obvious wall thickening. Normal appendix.Multiple diverticula again seen in the descending and sigmoid colon, with minimal pericolonic fat stranding adjacent to the sigmoid colon which appears decreased from prior. PERITONEUM: No ascites orfree air. RETROPERITONEUM: No mass or adenopathy. REPRODUCTIVE: Moderate prostate enlargement is stable. VASCULATURE ABDOMEN: Moderate aortoiliac atherosclerotic calcifications. No abdominal aortic aneurysm. MUSCULOSKELETAL ABDOMEN PELVIS: Mild diffuse degenerative disc disease in the lumbar spine.No suspicious osseous lesions or acute fractures. OTHER: A moderate size fat containing umbilical he rnia is unchanged. IMPRESSION: 1. Mildly displaced acute fracture of the right posterior 10th rib. 2. Significant three-vessel coronary artery atherosclerotic calcification. No acute process in the chest. 3. Sigmoid diverticulosis with mild pericolonic fat stranding which is decreased compared to prior study, possibly sequela of prior diverticulitis, with an acute episode of mild/uncomplicated diverticulitis not completely excluded. Recommend correlation with any symptoms of lower abdominal/pelvic pain. 4. 3 mm nonobstructing left renal stone. 5. Stable moderate prostate enlargement. 6. Stable moderate size fat containing umbilical hernia. THIS IS AN ELECTRONICALLY VERIFIED FINAL REPORT 12/08/2021 10:00 PM - Electronically signed by Trey Siegel M.D. ML: ML Report ID: [id number] Reading Location: [place] [address] ASSESSMENT AND PLAN: Closed fracture of one rib of right side Secondary to fall. Patient reports pain is well controlled at this time Will continue lidocaine patches for pain control, continue physical therapy Coronary artery disease involving [place] coronary artery of [place] heart without angina pectoris Stable. No chest pain at this time. Continue home ASA, Plavix, statin, beta johanne Essential hypertension BP was elevated on presentation, likely due to pain. Home med Toprol Xl resumed, BP is now well controlled Continue to monitor. Hyperlipidemia Continue statin Generalized weakness No signs of infection or fluid overload. Suspect weakness due to age related debility. Patient's son requests for patient to have home PT rather than outpatient PT correctional case manager consulted for the same. Continue PT while in the hospital. DVT PPx Lovenox Expected LOS: More than 2 midnights MDM: Moderate complexity Arlene Alvarado MD Internal Medicine - Hospitalist [facility] - Adult Hospitalist Service CC: Christine Herzog MD documented in this encounter Nursing Notes * Blaire Mariscal RN - 12/10/2021 3:40 PM CDT Patient discharged to Home via personal vehicle accompanied by family. Discharge instructions reviewed with patient and/or medical representative. Mobile pharmacy medications and/or prescriptions provided. Belongings/home medications returned. * Kyara Boo RN - 12/09/2021 7:30 PM CDT 1929 Handoff received. Pt resting in chair, family at bedside. Safety precautions in place. 2044 Assessment complete. Discussed plan of care. Questions answered. documented in this encounter ED Notes * Prema Zaman MD - 12/08/2021 8:48 PM CDT Triage Chief Complaint: Chief Complaint Patient presents with ??? Fall ??? Weakness - Generalized Portions of the record may have been created with voice recognition software. Occasional wrong-word or '[id number]' substitutions may have occurred due to the inherent limitations of voice recognition software. Read the chart carefully and recognize, using context, where substitutions have occurred. H&P: Villa Zuniga is a 76 y.o. male CAD, HTN, COPD, (on anti-platelet medication: Plavix aspirin metoprolol, no anticoagulation), presents for generalized weakness worsening for the last 2 days, decrease in appetite. The patient fell 1 week ago, Monday last week out of the bathtub and hit his rightflank. However he had been able to get up and walk around and thought he was fine and refused to get evaluated at that time because he was not having significant pain. No neck pain. No numbness or weakness. He said he did not hit his head. No LOC. he had been referred to PT by his primary to help prevent falls because a few months ago he had fallen and broke some ribs on the left side. Today was s upposed to be his day PT and he could not tolerated he was too weak he could barely stand up. On Monday he ate [employer], and it made him sick. Since then he really has not had appetite has noteaten much. Denies any change in bowel habits. No vomiting. No fever. No dysuria frequency urgency.No chest pain or shortness of breath or cough. No known sick contacts. He is COVID vaccinated. No focal numbness or weakness or confusion. He does report that the generalized weakness seems to be related to the pain he is experiencing in his posterior ribcage area after the fall, unsure why he was initially not having much pain and tolerating fine and then the pain got worse recently over the last couple days. ROS: At least 10 systems reviewed and otherwise negative except as in the HPI. Past Medical History: Diagnosis Date ??? Mayo esophagus ??? Chronic obstructive pulmonary disease (CMS/HCC) (HCC) COPD ??? Diabetes mellitus (HCC) Diabetes ??? GERD (gastroesophageal reflux disease) ??? HX OTHER MEDICAL 2012 Heart stents ??? HX OTHER MEDICAL urinary stent s placed ??? Hyperlipidemia Hyperlipidemia ??? Hypertension Hypertension Past Surgical History: Procedure Laterality Date ??? COLONOSCOPY 2009 ??? OTHER SURGICAL HISTORY 2002 Carpal tunnel release both ??? OTHER SURGICAL HISTORY karen total knees ??? OTHER SURGICAL HISTORY 2012 Heart stents: [facility] October/October HOME MEDICATIONS : aspirin 81 mg tablet atorvastatin (LIPITOR) 40 mg tablet clopidogreL (PLAVIX) 75 mg tablet finasteride (PROSCAR) 5 mg tablet metoprolol tartrate (LOPRESSOR) 25 mg immediate release tablet metoprolol XL (TOPROL-XL) 50 mg extended release tablet Allergies Allergen Reactions ??? Ciprofloxacin Rash Reaction: RASH, Reaction: Rash, ??? Apple Social history: Accompanied by family Nursing Notes Reviewed. Physical Exam: ED Triage Vitals [12/08/21 1712] Temp Pulse Resp BP SpO2 36.7 ??C (98 ??F) 62 16 (!) 180/77 95 % Temp src Heart Rate Source Patient Position BP Location FiO2 (%) -- -- -- -- -- Height Height Method Weight Weight Method 1.778 m (5' 10 ) -- 85.3 kg (188 lb) -- GENERAL APPEARANCE: Awake and alert. No acute distress. HEAD: Atraumatic. No raccoon eyes or Damon sign. EYES: Sclera anicteric. EOMI. ENT: Tolerates saliva. No malocclusion. NECK: Supple. Trachea midline. No meningismus. HEART: Occasionally irregular, PVCs noted on the monitor. Radial pulses 2+. LUNGS: Respirations unlabored. CTAB. Slightly tender on the right lateral posterior low chest wall.No palpable rib fractures. ABDOMEN: Soft. Somewhat tender and the right flank and right upper quadrant area. No guarding or rebound. Subtle yellowish bruising noted on the right flank that is tender to touch. EXTREMITIES: No acute deformities. Painless range of motion of the uppers, shoulders elbows wrists and lowers hips knees elbows without tenderness or pain. SKIN: Warm and dry. NEUROLOGICAL: No gross facial drooping. Moves all 4 extremities spontaneously. Normal speech and mental status. No ataxia noted. PSYCHIATRIC: Normal mood. SPINE: There is no cervical, thoracic or lumbar midline tenderness to palpation, step-offs, or acute deformities. No posterior midline cervical pain on ROM. I have reviewed and interpreted all of the currently available lab results from this visit (if applicable): Labs Reviewed URINALYSIS AND REFLEX TO MICROSCOPIC AND CULTURE - Abnormal Result Value Color, ur Yellow Clarity, ur Clear Specific gravity, ur 1.026 pH, urine 6.0 Protein, ur ql 2+ (*) Glucose, ur ql Negative Ketones, ur Negative Bilirubin, ur Negative Blood, ur Negative Urobilinogen, ur <2.0 Nitrite, ur Negative Leukocyte esterase, ur Negative UA reflex comment Reflex to microscopic UA will be performed. Narrative: Urine pH is affected by diet, medications, systemic acid-base disturbances, and renal tubular function. pH may affect urinary stone formation. For example, urine pH below 6.0 may help reduce the tendency for calcium phosphate stones and pH greater than 6.0 may reduce the tendency for uric acid stone formation. Source: [place] [employer].Last revised 07-13-2017 CBC WITH AUTO DIFFERENTIAL - Abnormal WBC 7.9 Hgb 14.9 Hct 46.7 Plt 208 MPV 11.1 RBC 5.75 MCV 81.2 (*) MCH 25.9 (*) MCHC 31.9 (*) RDW CV 14.7 RDW SD 42.5 NRBC abs 0.00 DIFFERENTIAL AUTO - Abnormal Neutrophil abs 5.3 Imm gran abs 0.0 Lymphocyte abs 1.4 Monocyte abs 0.9 (*) Eosinophil abs 0.2 Basophil abs 0.1 Neutrophil pct 66.5 Imm gran pct 0.3 Lymphocyte pct 18.2 Monocyte pct 11.4 Eosinophil pct 2.1 Basophil pct 1.5 PRO B-TYPE NATRIURETIC PEPTIDE - Abnormal NT-proBNP 2,618 (*) URINALYSIS, MICROSCOPIC ONLY - Abnormal WBC, ur 0-5 RBC, ur 0-2 Mucous, ur Present (*) Culture Reflex Comment Value: Reflex conditions for urine culture (WBC >10) not met. INFLUENZA A/B, RSV, AND COVID-19 PCR COVID-19 RNA Negative Influenza A RNA Negative Influenza B RNA Negative RSV RNA Negative Narrative: Is the Patient experiencing symptoms consistent with COVID?->Unknown Reason for testing?->Bed placement or semi-private room COMPREHENSIVE METABOLIC PANEL Sodium 140 Potassium, pl 3.6 Chloride 104 CO2 25 Anion gap 12 BUN 21 Creatinine 1.16 Glucose 97 Calcium 9.2 Bilirubin, total 0.8 Protein, pl 6.8 Albumin 4.4 Alk phos 127 ALT 10 AST 11 TROPONIN T HIGH-SENSITIVITY SERIES (BASELINE, 2HR, 4HR, 6HR) Trop T hs 19 EGFR eGFR 66 Radiographs (if obtained): Report Reviewed: CT Chest Abdomen Pelvis WO Contrast Final Result CT Head WO Contrast Final Result CT Cervical Spine WO Contrast Final Result XR Ribs Right W PA Chest 3 or More Views Final Result EKG (if obtained): (All EKGs are interpreted by myself in the absence of a editor greeting card) Sinus rhythm with a rate of 60, long [place] interval 239, first-degree heart block, no dropped beats noted, 2 PVCs after which is a pause causing an arrhythmia. Normal ST segments and T-waves. No STEMI. Left axis deviation. Likely LVH. Compared to previous EKG on December 28, 2020, no significant change, more normal appearing ST segments and T-waves today than previously. Previously the ST segments and T-waves looked flattened or slightly inverted in V4 through V6, which isn't evident today, potentially related to lead placement. Otherwise the sinus rhythm with PVCs and LVH and left axis that is all unchanged. Procedures Chart review shows: 05/08/19 echo Conclusions: Normal left ventricular systolic function with no focal wall motion abnormalities. Normal left ventricular size. Normal left ventricular wall thickness. Impaired diastolic relaxation Grade I. Ejection fraction is visually estimated at 65-70 %. Right Ventricular Systolic Pressure could not be estimated due to inadequate visualization of TR jet. Technically difficult study with limited views. ED course/MDM: Vitals: 12/08/21 1712 12/08/21203412/08/212099 BP: (!) 180/77 170/91 (!) 168/105 Pulse: 62 65 63 Resp: 16 28 21 Temp: 36.7 ??C (98 ??F) SpO2: 95% 98% 97% Weight: 85.3 kg (188 lb) Height: 177.8 cm (5' 10 ) ED Course as of 12/08/21 2350 Time: 12/08 2158 Value: CT Head WO Contrast Comment: IMPRESSION: 1. No acute intracranial findings. Calvarium intact. ?? 2. Mild progression of chronic senescent changes including bilateral periventricular chronic white matter ischemia and mild generalized cerebral atrophy. ?? By: Prema Zaman MD Time: 12/08 2202 Value: CT Chest Abdomen Pelvis WO Contrast Comment: (Reviewed) By: Prema Zaman MD Time: 12/09 2203 Value: CT Chest Abdomen Pelvis WO Contrast Comment: IMPRESSION: 1. Mildly displaced acute fracture of the right posterior 10th rib. ?? 2. Significant three-vessel coronary artery atherosclerotic calcification. No acute process in the chest. ?? 3. Sigmoid diverticulosis with mild pericolonic fat stranding which is decreased compared to prior study, possibly sequela of prior diverticulitis, with an acute episode of mild/uncomplicated diverticulitis not completely excluded. Recommend correlation with any symptoms of lower abdominal/pelvic pain. ?? 4. 3 mm nonobstructing left renal stone. ?? 5. Stable moderate prostate enlargement. ?? 6. Stable moderate size fat containing umbilical hernia. By: Prema Zaman MD Time: 12/08 2232 Value: CT Cervical Spine WO Contrast Comment: IMPRESSION: Intact cervical spine with stable spinal degenerative changes more advanced from C5-C7. ?? By: Prema Zaman MD Time: 12/08 2316 Value: NT-proBNP(!): 2,618 Comment: Unknown baseline. Could contribute to weakness as well as the rib fracture. Recommended observation, he and the family are discussing it. He lives with his at home, who is not capable of helping him or even dialing the phone for help if he needed that. So the family thinks that he would be best staying for safety reasons and PT evaluation to make sure that he is strong enough and pain is well enough controlled to return home. Patient has decision- making capacity of is contemplating the decision at this time. By: Prema Zaman MD Time: 12/08 2345 Comment: Dr. Chambers et accepts patient for admission By: Prema Zaman MD Clinical Impression: 1. Closed fracture of one rib of right side, initial encounter 2. Elevated brain natriuretic peptide (BNP) level 3. Generalized weakness 4. Frequent falls Disposition: admit (Please note that portions of this note may have been completed with a voice recognition program. [employer] errors occur. Please contact me for any clarification.) Prema Zaman MD 12/08/21 5244 * Carin Orellana RN - 12/08/2021 5:02 PM CDT Pt presents to ER after fall last week. Pt was getting out of the bath tub and fell back. Pt has been c/o mid right back and right rip pain since. Pt denies neck pain. Did not hit head. Reports warm baths give him the most pain relief. Pt reports he has been dizzy and weak for the past few weeks. Pt saw Dr. Em a few weeks ago and he was set up with PT. documented in this encounter Miscellaneous Notes * Plan of Care - Blaire Mariscal, SUE - 12/10/2021 2:32 PM CDT Goals: Clinical Goals for the Shift: Stable Vitals and labs. Pain control. Pt to deep breath and cough Summary: Pt is up with a sba and walker. Pt encouraged to deep breath and use incentive spirometer.Pt states his pain improves with lidocaine patch. Assessment of patient???s baseline is establishedat the beginning of the shift in flowsheets. Patient reassessed per order, unexpected findings and/or deviations from baseline are captured in flowsheets. Frequent safety checks and comfort rounds provided. Orders and/or nursing care completed as indicated. Patient monitored for response to interventions and treatments as documented in flowsheets. * Plan of Care - Kyara Boo RN - 12/10/2021 3:22 AM CDT Problem: Health Behavior: Goal: Understanding of discharge [...] injury in home environment Outcome: Progressing Problem: Lack of Knowledge: Goal: [...] Progressing Goals: Clinical Goals for the Shift: Stable vitals/labs, comfort/safety Summary: Progressing towards goals. * Assessment & Plan Note - Arlene Alvarado MD - 12/09/2021 6:32 PM CDTAssociated Problem(s): Generalized weakness No signs of infection or fluid overload. Suspect weakness due to age related debility. Patient's son requests for patient to have home PT rather than outpatient PT correctional case manager consulted for the same. Continue PT while in the hospital. * Assessment & Plan Note - Arlene Alvarado MD - 12/09/2021 6:31 PM CDTAssociated Problem(s): Hyperlipidemia Continue statin * Assessment & Plan Note - Arlene Alvarado MD - 12/09/2021 6:30 PM CDTAssociated Problem(s): Essential hypertension BP was elevated on presentation, likely due to pain. Home med Toprol Xl resumed, BP is now well controlled Continue to monitor. * Assessment & Plan Note - Arlene Alvarado MD - 12/09/2021 6:29 PM CDTAssociated Problem(s): Coronary artery disease involving [place] coronary artery of [place] heart without angina pectoris Stable. No chest pain at this time. Continue home ASA, Plavix, statin, beta johanne * Assessment & Plan Note - Arlene Alvarado MD - 12/09/2021 6:28 PM CDTAssociated Problem(s): Closed fracture of one rib of right side Secondary to fall. Patient reports pain is well controlled at this time Will continue lidocaine patches for pain control, continue physical therapy * Plan of Care - Gordon Boyce RN - 12/09/2021 2:52 PM CDT Goals: Clinical Goals for the Shift: VSS. No falls/injuries. Improve strength, decrease pain Summary: VSS. No falls/injuries. Pt has worked with therapy today, up with assist. Pain to R side ribs. Lidocaine patch to R side ribs. Son at bedside. Pt states feeling better than yesterday. Problem: Health Behavior: Goal: Understanding of discharge [...] and injury in home environment Outcome: Progressing * Plan of Care - Walt Silver RN - 12/09/2021 11:00 AM CDT CM Initial Assessment Interview Note Information Obtained From: Adult child Name: Ian Zuniga Son [phone] (12/09/21 1058) Admission Source: ED Impression: generalized weakness and falls Plan Includes: evaluation Primary Source of Transportation: Does the patient need discharge transport arranged?: Yes Has discharge transport been arranged?: No (12/09/2156) Health Insurance Coverage: Medicare A and B, AARP Prescription Coverage: yes [facility] Primary Care Provider: Christine Herzog MD Prior to Admission: Primary Caregiver: Self Support System: Spouse/Significant Other Support system contact info (name, phone, availablity): Summer Zuniga Spouse [phone] Home Care Services: No Durable Medical Equipment: Cane (single prong), Walker (wheeled) Living Arrangements: Spouse/significant other Type of Residence: Private residence Steps in home? : Yes, Outside of home Number of steps outside:: 3 steps (12/09/211057) SDOH: Transportation Needs: No Transportation Needs ??? Lack of Transportation (Medical): No ??? Lack of Transportation (Non-Medical): No Financial Resource Strain: Low Risk ??? Difficulty of Paying Living Expenses: Not very hard Housing Stability: Not on file Social Connections: Unknown ??? Frequency of Communication with Friends and Family: More than three times a week ??? Frequency of Social Gatherings with Friends and Family: More than three times a week ??? Attends Yazidi Services: Not on file ??? Active Member of Clubs or Organizations: Not on file ??? Attends Club or Organization Meetings: Not on file ??? Marital Status: Tobacco Use: Medium Risk ??? Smoking Tobacco Use: Former Smoker ??? Smokeless Tobacco Use: Never Used Social History Substance and Sexual Activity Alcohol Use No Current/Former Smokers - Passive Exposure Questions Responses Current/Former Smoker - passive exposure (e.g., household member smoking)? No E-Cigarette/Vaping Questions Responses E-cigarette/Vaping Use Never User PHQ Screening Potential discharge needs include: Home Health: Physical therapy, Occupational therapy (12/09/21 105) Dialysis: Behavioral Health Services: Behavioral Health Services: No (12/09/21 1058) Patient expects to be Discharged to: Private residence, (12/09/21 105) Additional Information: Discharge plan was discussed with the patient's son at the bedside. Patientlives at home with his in a house. He has a cane and wheeled walker for ambulation. Patient was supposed to start outpatient PT in [place], but has not started yet. Discharge plan is for patient to return home with , his son will pick him up. Waiting for PT and OT evaluation. Will continue to follow. Patient's Identified Problem/Goal Problem: Ensure acute medical needs are met and that patient has a safe discharge plan. Goal: Secure a discharge plan that patient/family are agreeable with and ensure patient has continuum of care. Case management will follow for discharge planning and send referrals as needed. Walt Silver RN * Plan of Care - Vero Souza RN - 12/09/2021 3:09 AM CDT Problem: Health Behavior: Goal: Understanding of discharge needs will improve Outcome: Not Progressing Goals: Clinical Goals for the Shift: Free from falls, stable vitals and labs, adequate pain control, bed alarm, maintain pt safety Summary: Pt is a new admit to the floor. Here with weakness and falls. Pt had complaints of pain. Tylenol given and lidocaine patches in place, which pt stated is helping. Vital signs stable. Up withassist. Bed alarm on for safety. Call light within reach. Pt resting comfortably. documented in this encounter Plan of Treatment Not on file documented as of this encounter Procedures Procedure Name Priority Date/Time Associated Diagnosis Comments URINALYSIS AND REFLEX TO MICROSCOPIC AND CULTURE STAT 12/08/2021 11:00 PM CDT URINALYSIS, MICROSCOPIC ONLY STAT 12/08/2021 11:00 PM CDT INFLUENZA A/B, RSV, AND COVID-19 PCR Routine 12/08/2021 10:[address] CHEST ABDOMEN PELVIS WO CONTRAST ED 12/08/2021 9:[address] CERVICAL SPINE WO CONTRAST ED 12/08/2021 9:[address] HEAD WO CONTRAST ED 12/08/2021 9 :37 PM CDT TROPONIN T HIGH-SENSITIVITY SERIES (BASELINE, 2HR, 4HR, 6HR) STAT 12/08/2021 8:59 PM CDT EGFR STAT 12/08/2021 8:59 PM CDT DIFFERENTIAL AUTO STAT 12/08/2021 8:5 9 PM CDT PRO B-TYPE NATRIURETIC PEPTIDE STAT 12/08/2021 8:59 PM CDT CBC WITH AUTO DIFFERENTIAL STAT 12/08/2021 8:59 PM CDT COMPREHENSIVE METABOLIC PANEL STAT 12/08/2021 8:59 PM CDT ECG 12-LEAD STAT 12/08/2021 8:53 PM CDT XR RIBS RIGHT W PA CHEST ED 12/08/2021 6:14 PM CDT documented in this encounter Results * (ABNORMAL) Urinalysis, microscopic only (12/08/2021 11:00 PM CDT) WBC, ur 0-5 0 - 5 /HPF [facility] ([facility]) RBC, ur 0-2 0 - 2 /HPF [facility] ([facility]) Mucous, ur Present(A) [facility] ([facility]) Culture Reflex Comment Reflex conditions for urine culture (WBC >10) not met. [facility] ([facility]) Urine 12/08/2021 11:0 0 PM CDT 12/08/2021 11:04 PM CDT us Prema Zaman MD LAB URINE ORDERABLES Fin al Result [facility] ([facility]) [facility] Department [place] [address] * (ABNORMAL) Urinalysis reflex to microscopic and culture Urine (12/08/2021 11:00 PM CDT) Color, ur Yellow Yellow [facility] ([facility]) Clarity, ur Clear Clear [facility] ([facility]) Specific gravity, ur 1.026 1.003 - 1.030 [facility] ([facility]) pH, urine 6.0 [facility] ([facility]) Protein, ur ql 2+(A) Negative [facility] ([facility]) Glucose, ur ql Negative Negative [facility] ([facility]) Ketones, ur Negative Negative [facility] ([facility]) Bilirubin, ur Negative Negative [facility] ([facility]) Blood, ur Negative Negative [facility] ([facility]) Urobilinogen, ur <2.0 <2.0 mg/dL [facility] ([facility]) Nitrite, ur Negative Negative [facility] ([facility]) Leukocyte esterase, ur Negative Negative [facility] ([facility]) UA reflex comment Reflex to microscopic UA will be performed. [facility] ([facility]) Urine 12/08/2021 11:0 0 PM CDT 12/08/2021 11:04 PM CDT Narrative [facility] ([facility]) - 12/08/2021 11:07 PM CDT ?? Urine pH is affected by diet, medications, systemic acid-base disturbances, and renal tubular function. ??pH may affect urinary stone formation. ??For example, urine pH below 6.0 may help reduce the tendency for calcium phosphate stones and pH greater than 6.0 may reduce the tendency for uric acid stone formation. Source: [facility] [employer]. Last revised 07-13-2017 Prema Zaman MD LAB MICROBIOLOGY - GENER AL ORDERABLES Final Result Performing Organization Address [facility] Co de Phone Number [facility] ([place]) [address] [place] [address] * Influenza A/B, RSV, and COVID-19 PCR Nasopharyngeal (12/08/2021 10:08 PM CDT) COVID-19 RNA Negative Negative [facility] ([facility]) Influenza A RNA Negative Negative [facility] ([facility]) Influenza B RNA Negative Negative [facility] ([facility]) RSV RNA Negative Negative [facility] ([facility]) Comment: Interpretive data: This test is performed using the [employer] Xpert Xpress CoV-2/Flu/RSV plus assay. This is [...] infection. Interpretive Data last revised 2021. Nasopharyngeal 12/08/2021 10 :08 PM CDT 12/08/2021 10:19 PM CDT Narrative [facility] ([place] - 12/08/2021 11:02 PM CDT Is the Patient experiencing symptoms consistent with COVID?->Unknown Reason for testing?->Bed placement or semi-private room Prema Zaman MD LAB MICROBIOLOGY - GENER AL ORDERABLES Final Result Performing Organization Address [facility] Co de Phone Number [facility] ([place]) [address] [place] [address] * CT Cervical Spine WO Contrast (12/08/2021 9:37 PM CDT) Anatomical Region Laterality Modality Spine N/A Computed Tomogra phy 12/08/2021 10:0 1 PM CDT Narrative 12/08/2021 10:04 PM CDT EXAM DESCRIPTION: ?? CT CERVICAL SPINE WO CONTRAST REASON FOR STUDY: ?? Status post fall today out of a bath tub, hitting the right rib area. ??Pain on the right ribs that radiates posteriorly. ??No other prior injury. ??Patient has fractured ribs on the left side in the past TECHNIQUE: Axial images through the cervical spine with sagittal and coronal reformatted images. Automated exposure control was used as a dose optimization technique for this examination. COMPARISON: ?? 05/25/2021 FINDINGS: ALIGNMENT: ?? Minimal anterolisthesis of C3 on C4 and C4 on C5 is stable. VERTEBRAE: ?? No fracture. Vertebral body heights well-maintained. DISCS: ?? Diffuse mild and moderate degenerative disc space narrowing throughout the cervical spine, most advanced at C5/6 and C6/7, with associated endplate osteophyte formation, is stable. HARDWARE: ?? None in the spine. INDIVIDUAL DISC LEVELS: ?? No significant osseous spinal canal stenosis. ??Mild to moderate bilateral C5/6 neural foraminal stenosis due to uncovertebral hypertrophy redemonstrated. UPPER THORACIC: ?? Incompletely imaged. No significant osseous spinal stenosis or osseous neural foraminal stenosis. SKULL BASE: ?? No significant finding. LUNG APICES: ?? No significant abnormality. NECK SOFT TISSUES: ?? No significant abnormality including prevertebral soft tissue hematoma.. OTHER: ?? No other significant findings. IMPRESSION: ??Intact cervical spine with stable spinal degenerative changes more advanced from C5-C7. THIS IS AN ELECTRONICALLY VERIFIED FINAL REPORT 12/08/2021 10:04 PM - Electronically signed by ??Trey Siegel M.D. ML: ML D: ??12/08/2021 10:04 PM T: ??12/08/2021 10:04 PM Report ID: [id number] Reading Location: ??[id number] Procedure Note Trey Siegel MD - 12/08/2021 EXAM DESCRIPTION: CT CERVICAL SPINE WO CONTRAST REASON FOR STUDY: Status post fall today out of a bath tub, hitting the right rib area. Pain on the right ribs that radiates posteriorly. Noother prior injury. Patient has fractured ribs on the left side in the past TECHNIQUE: Axial images through the cervical spine with sagittal andcoronal reformatted images. Automated exposure control was used as a doseoptimization technique for this examination. COMPARISON: 05/25/2021 FINDINGS: ALIGNMENT: Minimal anterolisthesis of C3 on C4 and C4 on C5 is stable. VERTEBRAE: No fracture. Vertebral body heights well-maintained. DISCS: Diffuse mild and moderate degenerative disc space narrowing throughout the cervical spine, most advanced at C5/6 and C6/7, withassociated endplate osteophyte formation, is stable. HARDWARE: None in the spine. INDIVIDUAL DISC LEVELS: No significant osseous spinal canal stenosis.Mild to moderate bilateral C5/6 neural foraminal stenosis due to uncovertebral hypertrophy redemonstrated. UPPER THORACIC: Incompletely imaged. No significant osseous spinalstenosis or osseous neural foraminal stenosis. SKULL BASE: No significant finding. LUNG APICES: No significant abnormality. NECK SOFT TISSUES: No significant abnormality including prevertebralsoft tissue hematoma.. OTHER: No other significant findings. IMPRESSION: Intact cervical spine with stable spinal degenerative changes moreadvanced from C5-C7. THIS IS AN ELECTRONICALLY VERIFIED FINAL REPORT 12/08/2021 10:04 PM - Electronically signed by Trey Siegel M.D. ML: ML Report ID: [id number] Reading Location: [place] [address] Prema Zaman MD [facility] CT PROCEDURES Final Result * CT Head WO Contrast (12/08/2021 9:37 PM CDT) Anatomical Region Laterality Modality Head and Neck N/A Computed Tomogra phy 12/08/2021 9:48 PM CDT Narrative 12/08/2021 9:51 PM CDT EXAM DESCRIPTION: ?? CT HEAD WO CONTRAST REASON FOR STUDY: ?? Status post fall today out of a bath tub, hitting the right rib area. ??Pain on the right ribs that radiates posteriorly. ??No other prior injury. ??Patient has fractured ribs on the left side in the past. TECHNIQUE: Axial images acquired through the brain without intravenous contrast. ??Images stored on PACS. ?? Automated exposure control was used as a dose optimization technique for this examination. COMPARISON: ?? 05/25/2021 FINDINGS: BRAIN: ?? 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 ? Bilateral periventricular white matter low densities and mild cerebral atrophy has progressed. ??Ventricles are within normal limits in size and configuration. ? EXTRA-AXIAL SPACES: ?? No fluid collections. No masses. CALVARIUM: ?? No fracture. SINUSES/MASTOIDS: ?? No fluid or mucosal thickening. ORBITS: ?? No significant abnormality. OTHER: ?? No other significant abnormality. IMPRESSION: ??1. ??No acute intracranial findings. ?? Calvarium intact. 2. ??Mild progression of chronic senescent changes including bilateral periventricular chronic white matter ischemia and mild generalized cerebral atrophy. THIS IS AN ELECTRONICALLY VERIFIED FINAL REPORT 12/08/2021 9:51 PM - Electronically signed by ??Trey Siegel M.D. ML: ML D: ??12/08/2021 9:51 PM T: ??12/08/2021 9:51 PM Report ID: [id number] Reading Location: ??[id number] Procedure Note Trey Siegel MD - 12/08/2021 EXAM DESCRIPTION: CT HEAD WO CONTRAST REASON FOR STUDY: Status post fall today out of a bath tub, hitting the right rib area. Pain on the right ribs that radiates posteriorly. Noother prior injury. Patient has fractured ribs on the left side in the past. TECHNIQUE: Axial images acquired through the brain without intravenous contrast. Images stored on PACS. Automated exposure control was used asa dose optimization technique for this examination. 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 Bilateral periventricular white matter low densities and mild cerebralatrophy has progressed. Ventricles are within normal limits in size and configuration. EXTRA-AXIAL SPACES: No fluid collections. No masses. CALVARIUM: No fracture. SINUSES/MASTOIDS: No fluid or mucosal thickening. ORBITS: No significant abnormality. OTHER: No other significant abnormality. IMPRESSION: 1. No acute intracranial findings. Calvarium intact. 2. Mild progression of chronic senescent changes including bilateral periventricular chronic white matter ischemia and mild generalizedcerebral atrophy. THIS IS AN ELECTRONICALLY VERIFIED FINAL REPORT 12/08/2021 9:51 PM - Electronically signed by Trey Siegel M.D. ML: ML Report ID: [id number] Reading Location: [place] [address] Prema Zaman MD IMG CT PROCEDURES Final Result * CT Chest Abdomen Pelvis WO Contrast [...] PM T: ??12/08/2021 10:00 PM Report ID: [id number] Reading Location: ??[id number] Procedure Note Trey Siegel MD - 12/08/2021 [...] Trey Siegel M.D. ML: ML Report ID: [id number] Reading Location: [place] [address] Prema Zaman MD IMG CT PROCEDURES Final Result * eGFR (12/08/2021 8:59 PM CDT) eGFR 66 mL/min/1. 73 m2 [facility] ([place]) Comment: [...] interpretive data was last reviewed 2021. Blood 12/08/2021 8:59 PM CDT 12/08/2021 9:08 PM CDT us Saleem Garber MD LAB BLOOD ORDERABLES Final Result [facility] ([place]) 1 [facility] Department [place] [address] * (ABNORMAL) Pro B-type natriuretic peptide (12/08/2021 8:59 PM CDT) NT-proBNP 2,618(H) <=450 pg/mL [facility] ([place]) Comment: Interpretive Comments: A. Dyspnea in Acute [...] et.al. Eur Heart J. 2006:27:330-337. 2. Rose RW, Debbie AM. J. AM Maki Cardiol: Cardiovasc Imag. 2009;2: 216- 225. Interpretive Data Last Revised Date: 2018. Blood 12/08/2021 8:59 PM CDT 12/08/2021 10:02 PM CDT us Prema Zaman MD LAB BLOOD ORDERABLES Fin al Result [facility] ([place]) 1 [facility] Department of Laboratories [place], [place] [id number] * (ABNORMAL) Differential, auto (12/08/2021 8:59 PM CDT) Neutrophil abs 5.3 1.7 - 6.5 K/cumm [facility] ([place]) Imm gran abs 0.0 0.0 - 0.1 K/cumm [facility] ([place]) Lymphocyte abs 1.4 0.8 - 3.3 K/cumm [facility] ([place]) Monocyte abs 0.9(H) 0.2 - 0.8 K/cumm [facility] ([place]) Eosinophil abs 0.2 0.0 - 0.5 K/cumm [facility] ([place]) Basophil abs 0.1 0.0 - 0.1 K/cumm [facility] ([place]) Neutrophil pct 66.5 % [facility] ([place]) Comment: Interpretive [...] was last revised on 2017. Lymphocyte pct 18.2 % [facility] ([place]) Comment: Interpretive Data Percent cell count reference ranges are not reported, since discordance with absolute values may lead to misinterpretation of CBC data. Current Interpretive Data was last revised on 2017. Monocyte pct 11.4 % [facility] ([place]) Comment: Interpretive Data [...] Data was last revised on 2017. Blood 12/08/2021 8:5 9 PM CDT 12/08/2021 9:08 PM CDT Saleem Garber MD LAB BLOOD ORDERABLES Final Result Performing Organization Address City/[facility] Co de Phone Number [facility] ([place]) 1 [facility] [place] [address] * Troponin T high-sensitivity series (baseline, 2hr, 4hr, 6hr) (12/08/2021 8:59 PM CDT) Trop T hs 19 <=22 ng/L [facility] ([place]) Comment: Interpretive Data For further hscTnT resources including the diagnostic algorithm and an aid in interpretation, copy and paste this link: [email or web address].testcatalog.org/show/[email or web address] Current Interpretive Data last revised 2020. Blood 12/08/2021 8:59 PM CDT 12/08/2021 10:02 PM CDT Prema Zaman MD LAB BLOOD ORDERABLES Fin al Result Performing Organization Address [facility] Co de Phone Number [facility] ([place]) 1 [facility] Department [place] [place] [address] * Comprehensive metabolic panel (12/08/2021 8:59 PM CDT) Pathologist [facility] Sodium 140 135 - 145 mmol/L [facility] ([place]) Potassium, pl 3.6 3.3 - 4.9 mmol/L [facility] ([place]) Chloride 104 97 - 110 mmol/L [facility] ([place]) CO2 25 22 - 32 mmol/L [facility] ([place]) Anion gap 12 2 - 15 mmol/L [facility] ([place]) BUN 21 8 - 25 mg/dL [facility] ([place]) Creatinine 1.16 0.80 - 1.30 mg/dL [facility] ([place]) Glucose 97 70 - 199 mg/dL [facility] ([place]) Comment: Interpretive Data Fasting glucose >/= [...] interpretive data was last revised 2017. Calcium 9.2 8.5 - 10.3 mg/dL [facility] ([place]) Bilirubin, total 0.8 0.1 - 1.2 mg/dL [facility] ([place]) Protein, pl 6.8 6.5 - 8.5 g/dL [facility] ([place]) Albumin 4.4 3.5 - 5.0 g/dL [facility] ([place]) Alk phos 127 40 - 130 Units/L [facility] ([place]) ALT 10 7 - 55 Units/L [facility] ([place]) AST 11 10 - 50 Units/L [facility] ([place]) Blood 12/08/2021 8:5 9 PM CDT 12/08/2021 9:08 PM CDT Saleem Garber MD LAB BLOOD ORDERABLES Final Result [facility] ([place]) 1 [facility] Department of Laboratories [place] [id number] * (ABNORMAL) CBC with auto differential (12/08/2021 8:59 PM CDT) WBC 7.9 3.8 - 9.9 K/cumm [facility] ([place]) Hgb 14.9 13.0 - 17.5 g/dL [facility] ([place]) Hct 46.7 38.9 - 50.3 % [facility] ([place]) Plt 208 150 - 400 K/cumm [facility] ([place]) MPV 11.1 9.1 - 12.3 fL [facility] ([place]) RBC 5.75 4.30 - 5.80 M/cumm [facility] ([place]) MCV 81.2(L) 81.3 - 96.4 fL [facility] ([place]) MCH 25.9(L) 27.1 - 33.3 pg [facility] ([place]) MCHC 31.9(L) 32.3 - 35.7 g/dL [facility] ([place]) RDW CV 14.7 11.1 - 14.9 % [facility] ([place]) RDW SD 42.5 35.7 - 48.1 fL [facility] ([place]) NRBC abs 0.00 0.00 - 0.01 K/cumm [facility] ([place]) Blood 12/08/2021 8:59 PM CDT 12/08/2021 9:08 PM CDT us Saleem Garber MD LAB BLOOD ORDERABLES Final Result Performing Organization Address [facility] Co de Phone Number [facility] ([place]) 1 [facility] Department [place] [address] * ECG 12 lead (12/08/2021 8:53 PM CDT) 12/08/2021 8:53 PM CDT Narrative [facility] - 12/09/2021 8:01 AM CDT Vent Rate: 60 bpm RR Interval: 993 msec [place] Interval: 239 msec QRS Duration: 121 msec QT Interval: 468 msec QTC Interval: 469 msec P-R-T [place]: -39 - -55 - 77 degrees SINUS RHYTHM WITH FIRST DEGREE AV BLOCK WITH OCCASIONAL VENTRICULAR PREMATURE COMPLEXES Left atrial enlargement POSSIBLE RIGHT VENTRICULAR CONDUCTION DELAY ??[RSR (QR) IN V1/V2] LEFT ANTERIOR FASCICULAR BLOCK ??[QRS AXIS <= -45, QR IN I, RS IN II] LEFT VENTRICULAR HYPERTROPHY AND ST-T CHANGE ??[VOLTAGE CRITERIA PLUS ST/T ABNORMALITY] POSSIBLE SEPTAL MYOCARDIAL INFARCTION , OF INDETERMINATE AGE [30 ms Q WAVE IN V1/V2] ABNORMAL ECG No change from prior EKG Electronically Signed By: Jason Shaw MD Saleem Garber MD ECG ORDERABLES Final Resu lt Performing Organization Address [facility]/ZIP Co de Phone Number [employer] [facility] [[email or web address]] * XR Ribs Right W PA Chest [...] Electronically signed by ??Ysabel Bauer M.D. TB: MASTER D: ??12/08/2021 6:27 PM T: ??12/08/2021 6:27 PM Report ID: [id number] Reading Location: ??[id number] Procedure Note Ysabel Villatoro MD - 12/08/2021 EXAM DESCRIPTION: XR RIBS [...] Ysabel Bauer M.D. TB: TB Report ID: [id number] Reading Location: [place] [address] Saleem Garber MD IMG XR PROCEDURES Final Re sult documented in this encounter Visit Diagnoses Diagnosis Closed fracture of one rib of right side, initial encounter Elevated brain natriuretic peptide (BNP) level Generalized weakness Frequent falls Closed fracture of one rib of right side, initial encounter Coronary artery disease involving [place] coronary artery of [place] heart without angina pectoris Essential hypertension Unspecified essential hypertension Hyperlipidemia Other and unspecified hyperlipidemia Generalized weakness Elevated brain natriuretic peptide (BNP) level documented in this encounter Admitting Diagnoses Diagnosis Closed fracture of one rib of right side documented in this encounter Administered Medications Inactive Administered Medications - up to 3 most recent administrations Medication Order MAR Action Action Date Dose Rate Site acetaminophen (TYLENOL) tablet 1,000 mg 1,000 mg, oral, Once, On Mon12/08/21 at 2048, For 1 dose Given 12/08/2021 8:56 PM CDT 1,000 mg acetaminophen (TYLENOL) tablet 1,000 mg 1,000 mg, oral, Every 8 hours, First dose on [facility] 12/09/21 at 0130, Indications: PainIndications:Pain Given 12/09/2021 9:09 AM CDT 1,000 mg Given 12/09/2021 1:20 AM CDT 1,000 mg acetaminophen (TYLENOL) tablet 650 mg 650 mg, oral, Every 6 hours PRN, headaches, fever, Starting on [facility] 12/09/21 at 0103 acetaminophen (TYLENOL) tablet 650 mg 650 mg, oral, Every 6 hours scheduled, First dose (after last modification) on [facility] 12/09/21 at 1800, Indications: PainIndications:Pain Given 12/10/2021 11:32 AM C DT 650 mg Given 12/10/2021 6:50 AM CDT 650 mg Given 12/09/2021 5:50 PM CDT 650 mg aspirin enteric coated tablet 81 mg 81 mg, oral, Daily, First dose on [facility] 12/09/21 at 1100, Do not crush, chew, cut, dissolve, open or otherwise manipulate tablet/capsule. Given 12/10/2021 9:24 AM CDT 81 mg Given 12/09/2021 11:06 AM CDT 81 mg atorvastatin (LIPITOR) tablet 40 mg 40 mg, oral, Daily, First dose on [facility] 12/09/21 at 1100 Given 12/10/2021 9:24 AM CDT 40 mg Given 12/09/2021 11:06 AM CDT 40 mg bisacodyl EC (DULCOLAX EC) tablet 10 mg 10 mg, oral, Daily PRN, constipation, If no results 24 hours after milk of magnesia, Starting on [facility] 12/09/21 at 0103, Do not crush, chew, cut, dissolve, open or otherwise manipulate tablet/capsule. clopidogreL (PLAVIX) tablet 75 mg 75 mg, oral, Daily, First dose on [facility] 12/09/21 at 1100 Given 12/10/2021 9:24 AM CDT 75 mg Given 12/09/2021 11:06 AM CDT 75 mg enoxaparin (LOVENOX) syringe 40 mg 40 mg, subcutaneous, Daily (for enoxaparin), First dose on Mon12/09/21 at 2100, Indications: Deep Vein Thrombosis PreventionIndications: Deep Vein Thrombosis Prevention Given 12/09/2021 8:43 PM CDT 40 mg Right Lower Abdomen lidocaine (LIDODERM) 5 % patch 1 patch 1 patch, transdermal, Administer over 12 Hours, Daily, First dose on Mon12/09/21 at 0900, Do not cover the holes on the top side of the patch., Apply to affected area: back Medication Applied 12/10/2021 9:24 AM CDT 1 patch Back Medication Applied 12/09/2021 9:05 AM CDT 1 patch Other (Comment) lidocaine (LIDODERM) 5 % patch 3 patch 3 patch, transdermal, Administer over 12 Hours, Once, On Mon12/08/21 at 2048, For 1 dose, Do not cover the holes on the top side of the patch., Apply to affected area: back, chest, other Medication Applied 12/08/2021 8:55 PM CDT 3 patches Right Shoulder LORazepam (ATIVAN) injection 0.5 mg 0.5 mg, intravenous, Once, On Mon12/08/21 at 2105, For 1 dose, For IV administration, dilute with equal volume of 0.9% sodium chloride to a final concentration of 1 mg/mL. Do not exceed a rate of 2 mg/minute Given 12/08/2021 9:08 PM CDT 0.5 mg magnesium hydroxide (MILK OF MAGNESIA) 80 mg/mL (33.3 mg/mL as elemental magnesium) oral suspension 30 mL 30 mL, oral, Daily PRN, constipation, Starting on Mon12/09/21 at 0103 methocarbamoL (ROBAXIN) tablet 500 mg 500 mg, oral, Once, On Mon12/08/21 at 2048, For 1 dose Given 12/08/2021 8:56 PM CDT 500 mg methocarbamoL (ROBAXIN) tablet 500 mg 500 mg, oral, 3 times daily, First dose on Mon12/09/21 at 0900 Given 12/10/2021 9:24 AM CDT 500 mg Given 12/09/2021 8:43 PM CDT 500 mg Given 12/09/2021 5:50 PM CDT 500 mg metoprolol XL (TOPROL-XL) extended release tablet 50 mg 50 mg, oral, Daily, First dose on [facility] 12/09/21 at 1100, Tablets that are scored may be split, but do not crush, chew, dissolve, open or otherwise manipulate tablet/capsule. Given 12/10/2021 9:24 AM CDT 50 m g Given 12/09/2021 11:06 AM CDT 50 mg mineral oil (FLEET MINERAL OIL) enema 1 enema 1 enema, rectal, Daily PRN, constipation, if no results 24 hours after bisacodyl, Starting on [facility] 12/09/21 at 0103, Indications: constipationIndications:constipation ondansetron (ZOFRAN) injection 4 mg 4 mg, intravenous, Administer over 2 Minutes, Every 6 hours PRN, nausea, vomiting, if not tolerating PO, Starting on Mon12/09/21 at 0057, Indications: Nausea and VomitingIndications:Nausea and Vomiting ondansetron ODT (ZOFRAN-ODT) disintegrating tablet 4 mg 4 mg, oral, Every 6 hours PRN, nausea, vomiting, Starting on [facility] 12/09/21 at 0057, Indications: Nausea and VomitingIndications:Nausea and Vomiting oxyCODONE (ROXICODONE) tablet 5 mg 5 mg, oral, Every 4 hours PRN, 2nd line for pain, Starting on [facility] 12/09/21 at 0057, May administer 1 hour after 1st line agent for uncontrolled or increasing pain. , Indications: PainIndications:Pain Given 12/10/2021 12:12 AM CDT 5 mg sodium chloride 0.9% flush 0.5-20 mL 0.5-20 mL, intra-catheter, Every 8 hours, First dose on [facility] 12/09/21 at 0600, Flush volume based on line type and size. Given 12/10/2021 6:51 AM CDT 10 mL Given 12/09/2021 8:45 PM CDT 10 mL sodium chloride 0.9% flush 0.5-20 mL 0.5-20 mL, intra-catheter, As needed, line care, Starting on [facility] 12/09/21 at 0103, Flush volume based on line type and size. Flush before and after each use. documented in this encounter Discontinued Medications Medication Sig Discontinue Reason Start Date End Da te metoprolol tartrate (LOPRESSOR) 25 mg immediate release tablet TAKE 1 TABLET BY MOUTH TWICE DAILY Other 11/15/2021 12/09/2021 oxyCODONE (ROXICODONE) 5 mg immediate release tabletIndications:Pain Take 1 tablet (5 mg total) by mouth every 8 (eight) hours as needed for pain for up to 5 days Reorder 12/10/2021 12/10/2021 documented as of this encounter Active and Recently Administered Medications Times are shown in CDT. Scheduled Medication Order 12/08/2021 12/09/2021 12/10/2021 acetaminophen (TYLENOL) tablet 1,000 mg (COMPLETED) 1,000 mg, oral, Once, On Mon12/08/21 at 204, For 1 dose 2055 (Given - Provider: Robel Whitman RN) acetaminophen (TYLENOL) tablet 1,000 mg (CANCELED) 1,000 mg, oral, Every 8 hours, First dose on [facility] 12/09/21 at 0130, Indications: Pain 0120 (Given - Provider: Vero Souza RN)0909 (Given - Provider: Gordon Boyce RN) acetaminophen (TYLENOL) tablet 650 mg 650 mg, oral, Every 6 hours scheduled, First dose (after last modification) on Mon12/09/21 at 1800, Indications: Pain 1750 (Given - Provider: Gordon Boyce RN) 0012 (Not Given - Provider: Kyara Boo RN - Reason: Patient/family refused)0650 (Given - Provider: Kyara Boo RN)1132 (Given - Provider: Blaire Mariscal, SUE) aspirin enteric coated tablet 81 mg 81 mg, oral, Daily, First dose on [facility] 12/09/21 at 1100, Do not crush, chew, cut, dissolve, open or otherwise manipulate tablet/capsule. 1106 (Given - Provider: Gordon Boyce RN) 0924 (Given - Provider: Blaire Mariscal, SUE) atorvastatin (LIPITOR) tablet 40 mg 40 mg, oral, Daily, First dose on [facility] 12/09/21 at 1100 1106 (Given - Provider: Gordon Boyce RN) 0924 (Given - Provider: Blaire Mariscal, SUE) clopidogreL (PLAVIX) tablet 75 mg 75 mg, oral, Daily, First dose on [facility] 12/09/21 at 1100 1106 (Given - Provider: Gordon Boyce RN) 0924 (Given - Provider: Blaire Mariscal RN) enoxaparin (LOVENOX) syringe 40 mg 40 mg, subcutaneous, Daily (for enoxaparin), First dose on [facility] 12/09/21 at 2100, Indications: Deep Vein Thrombosis Prevention 2042 (Given - Provider: Kyara Boo RN) lidocaine (LIDODERM) 5 % patch 1 patch 1 patch, transdermal, Administer over 12 Hours, Daily, First dose on [facility] 12/09/21 at 0900, Do not cover the holes on the top side of the patch., Apply to affected area: back 904 (Medication Applied - Provider: Gordon Boyce RN - Comment: R side of ribs)2042 (Medication Removed - Provider: Kyara Boo, SUE) 0924 (Medication Applied - Provider: Blaire Mariscal RN)154 (Due: Medication Removed - Provider: Automatic Discharge Provider - Comment: Time automatically adjusted from order being discontinued) lidocaine (LIDODERM) 5 % patch 3 patch (COMPLETED) 3 patch, transdermal, Administer over 12 Hours, Once, On Mon12/08/21 at 2048, For 1 dose, Do not cover the holes on the top side of the patch., Apply to affected area: back, chest, other 2054 (Medication Applied - Provider: Robel Whitman RN) 900 (Medication Removed - Provider: Gordon Boyce RN) LORazepam (ATIVAN) injection 0.5 mg (COMPLETED) 0.5 mg, intravenous, Once, On Mon12/08/21 at 2104, For 1 dose, For IV administration, dilute with equal volume of 0.9% sodium chloride to a final concentration of 1 mg/mL. Do not exceed a rate of 2 mg/minute 2107 (Given - Provider: Robel Whitman, SUE) methocarbamoL (ROBAXIN) tablet 500 mg (COMPLETED) 500 mg, oral, Once, On Mon12/08/21 at 2048, For 1 dose 2055 (Given - Provider: Robel Whitman RN) methocarbamoL (ROBAXIN) tablet 500 mg 500 mg, oral, 3 times daily, First dose on [facility] 12/09/21 at 0900 0909 (Given - Provider: Gordon Boyce RN)1750 (Given - Provider: Gordon Boyce RN)2042 (Given - Provider: Kyara Boo RN) 09 (Given - Provider: Blaire Mariscal, SUE) metoprolol XL (TOPROL-XL) extended release tablet 50 mg 50 mg, oral, Daily, First dose on [facility] 12/09/21 at 1100, Tablets that are scored may be split, but do not crush, chew, dissolve, open or otherwise manipulate tablet/capsule. 1106 (Given - Provider: Gordon Boyce RN) 923 (Given - Provider: Blaire Mariscal RN) sodium chloride 0.9% flush 0.5-20 mL 0.5-20 mL, intra-catheter, Every 8 hours, First dose on [facility] 12/09/21 at 0600, Flush volume based on line type and size. 0555 (Not Given - Provider: Vero Souza RN - Reason: Other - Comment: pt sleeping)2009 (Canceled Entry - Provider: Kyara Boo RN)2044 (Given - Provider: Kyara Boo RN) 06 (Given - Provider: Kyara Boo RN)1400 (Due) PRN Medication Order 12/08/2021 12/09/2021 12/10/2021 acetaminophen (TYLENOL) tablet 650 mg 650 mg, oral, Every 6 hours PRN, headaches, fever, Starting on [facility] 12/09/21 at 0103 bisacodyl EC (DULCOLAX EC) tablet 10 mg 10 mg, oral, Daily PRN, constipation, If no results 24 hours after milk of magnesia, Starting on [facility] 12/09/21 at 0103, Do not crush, chew, cut, dissolve, open or otherwise manipulate tablet/capsule. docusate sodium (COLACE) capsule 100 mg 100 mg, oral, 2 times daily PRN, constipation, Starting on [facility] 12/09/21 at 0057, Indications: constipation magnesium hydroxide (MILK OF MAGNESIA) 80 mg/mL (33.3 mg/mL as elemental magnesium) oral suspension 30 mL 30 mL, oral, Daily PRN, constipation, Starting on [facility] 12/09/21 at 0103 mineral oil (FLEET MINERAL OIL) enema 1 enema 1 enema, rectal, Daily PRN, constipation, if no results 24 hours after bisacodyl, Starting on [facility] 12/09/21 at 0103, Indications: constipation ondansetron (ZOFRAN) injection 4 mg(Linked Group 1) 4 mg, intravenous, Administer over 2 Minutes, Every 6 hours PRN, nausea, vomiting, if not tolerating PO, Starting on [facility] 12/09/21 at 0057, Indications: Nausea and Vomiting ondansetron ODT (ZOFRAN-ODT) disintegrating tablet 4 mg(Linked Group 1) 4 mg, oral, Every 6 hours PRN, nausea, vomiting, Starting on [facility] 12/09/21 at 0057, Indications: Nausea and Vomiting oxyCODONE (ROXICODONE) tablet 5 mg 5 mg, oral, Every 4 hours PRN, 2nd line for pain, Starting on [facility] 12/09/21 at 0057, May administer 1 hour after 1st line agent for uncontrolled or increasing pain. , Indications: Pain 0012 (Given - Provid er: Kyara Boo RN) sodium chloride 0.9% flush 0.5-20 mL 0.5-20 mL, intra-catheter, As needed, line care, Starting on [facility] 12/09/21 at 0103, Flush volume based on line type and size. Flush before and after each use. Linked Groups Order Group 1: ondansetron ODT (ZOFRAN-ODT) disintegrating tablet 4 mgJump to med 4 mg, oral, Every 6 hours PRN, nausea, vomiting, Starting on [facility] 12/09/21 at 0057, Indications: Nausea and Vomiting Or ondansetron (ZOFRAN) injection 4 mgJump to med 4 mg, intravenous, Administer over 2 Minutes, Every 6 hours PRN, nausea, vomiting, if not tolerating PO, Starting on [facility] 12/09/21 at 0057, Indications: Nausea and Vomiting documented in this encounter Orders Medications Ordered That Reg ht Not Have Been Administered Count Last Ordered Date First Ordered Date acetaminophen (TYLENOL) tablet 650 mg 1 03/2022 bisacodyl EC (DULCOLAX EC) tablet 10 mg 1 0 12/09/2021 docusate sodium (COLACE) capsule 100 mg 1 0 12/09/2021 magnesium hydroxide (MILK OF MAGNESIA) 80 mg/mL (33.3 mg/mL as elemental magnesium) oral suspension 30 mL 1 12/09/2021 mineral oil (FLEET MINERAL O [place]) enema 1 enema 1 12/09/2021 ondansetron (ZOFRAN) injection 4 mg 1 12/09 ondansetron ODT (ZOFRAN-ODT) disintegrating tablet 4 mg 1 12/09/2021 sodium chloride 0.9% flush 0.5-20 mL 1 03/2022 Diet Count Last Ordered Date First Orde red Date ADULT DISCHARGE DIET 1 12/10/2021 Nursing Count Last Ordered Date First Orde red Date DISCHARGE ACTIVITY 1 12/10/2021 DISCHARGE CALL PROVIDER 8 12/10/2021 DISCHARGE INSTRUCTIONS 1 12/10/2021 WEIGH PATIENT 2 12/09/2021 BLADDER SCAN 1 12/08/2021 INCENTIVE SPIROMETRY NURSING 1 12/08/2021 PULSE OXIMETRY - RN 1 12/08/2021 STRAIGHT CATH 1 12/08/2021 CORE MEASURES Count Last Ordered Date First Ord ered Date REASON FOR NO VTE PROPHYLAXIS AT ADMISSION 1 12/09/2021 ADT Patient Update Count Last Ordered Date Firs t Ordered Date ED IP DECISION TO ADMIT 1 12/08/2021 documented in this encounter Additional Health Concerns Infection Onset Date Last Indicated Resolved Time COVID: Suspected 12/08/2021 12/08/2021 12/08/2021 11:03 PM CDT documented as of this encounter Care Teams Licensed Practical Nurse Relationship Specialty Start Date End Date Christine Herzog MD [address] [place] [address] PCP - General Internal Medicine 12/02/21 Trey Pinedo MD [address] [place] [address] Consulting Physician Neurology 05/09/19 documented as of this encounter
--- OUTSIDE RECORDS SUMMARY | 2024-06-18 18:08 | XMS_ITS | Encounter Summary ---
Author Organization [facility] Healthcare Address [address] [place] [address] Care Team Providers Care Supervisor Drying And Winding Name Role Phone Wesley Em MD Primary Care Provider [phone] Trey Pinedo MD Unavailable [phone] Reason for Visit * Reason Comments Phlebotomy Encounter Details Date Type Department Care Team (Late st Contact Info) Description 2021 3:30 PM CDT Infusion [facility] [address] [facility] [address] [place] [address] Polycythemia (Primary Dx) Social History Tobacco Use [...] than three times a week 12/31/2020 Attends [employer] Not on file 12/31 Active Member [...] on file 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 Figueroa for a phlebotomy. The pts labs were done prior and reviewed, hct is 45.3. Phlebotomy was performed in the left ac as charted with the donormatic 500cc was taken, it was tolerated well. Pressure dressing was applied and the pt stayed for observation, bp checked post treatment. He was then given his discharge instructions and left in stable condition. documented in this encounter Plan of Treatment Not on file documented as of this encounter Visit Diagnoses Diagnosis Polycythemia- Primary Polycythemia, secondary documented in this encounter Orders Nursing Count Last Ordered Date First Orde red Date ONCBCN THERAPEUTIC PHLEBOTOMY 1 2021 Appointment Requests Count Last Ordered Date Fi rst Ordered Date ONCBCN INFUSION APPT REQUEST 1 2021 documented in this encounter Care Teams Supervisor Drying And Winding Relationship Specialty Start Date End Date Wesley Em MD PCP - General 09/30/16 12/01/21 Trey Pinedo MD [address] [place] [address] [place] [address] Consulting Physician Neurology 05/09/19 documented as of this encounter
--- OUTSIDE RECORDS SUMMARY | 2024-06-18 18:08 | XMS_ITS | Encounter Summary ---
Author Organization [facility] Address [address] [place] [address] Phone Care Team Providers Care Air Pollution Auditor Name Role Phone Wesley Em MD Primary Care Provider [phone] Trey Pinedo MD Unavailable [phone] Christine Herzog MD Primary Care Provide r Reason for Visit * Reason Comments Follow-up polycythemia Encounter Details Date Type Department Care Team (Late st Contact Info) Description 2021 3:15 PM CDT Office Visit [facility] Oncology [address] [place] [address] Medical [facility] [address] [id number] Chintan Figueroa MD [address] [place] [address] [address] [place] [address] Polycythemia Social History Tobacco Use Types Packs/Day [...] on file 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 Gender Identity Not on file Sexual Orientation Straight 01/23/2021 10 :16 PM CDT documented as of this encounter Last Filed Vital Signs Vital Sign Reading Time Taken Comments Blood Pressure 184/85 2021 2:38 PM CDT Pulse 80 2021 2:38 PM CDT Temperature 36.2 ??C (97.2 ??F) 2021 2:38 PM CD T Respiratory Rate 20 2021 2:38 PM CDT Oxygen Saturation 98% 2021 2:38 PM CDT Inhaled Oxygen Concentration - - Weight 84.7 kg (186 lb 12.8 oz) 2021 2:38 PM CDT Height 177.8 cm (5' 10 ) 2021 2:38 PM CDT Body Mass Index 26.8 2021 2:38 PM CDT documented in this encounter Progress Notes * Chintan Figueroa MD - 2021 3:15 PM CDT Hematology/Oncology Consult Visit Date: 2021 Primary Care Physician:Wesley Em MD Requesting Provider:Wesley Em MD [place] 76 y.o. male Chief Complaint: The patient was referred from my opinion and recommendations regarding further evaluation and management of his erythrocytosis. INTERVAL HISTORY:10/20/2021-The patient feels relatively well. He has been getting 1 phlebotomy per month without any complications Assessment: 1. 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 2. His erythropoietin levels have been higher than what one would expect with a hemoglobin of 18+ gper dL. 3. Benign left renal cyst (may be the source of increased erythropoietin). Plan: 1. I will change him to Q2 month phlebotomies to keep his hematocrit down to approximately 45-50%. 2. I will hold phlebotomies if his hematocrit is less than 45%. 3. I will see him back in 6 months with CBC at that time. 2021 Chintan Figueroa MD Behavioral Health Director Internal Medicine-Medical Oncology [facility] [place] Physicians in [address] [address] Office: After Hours and Weekends: Operating Room Registered Nurse completed using M*Modal fluency direct speaking software, therefore, spinneret cleaner variances may occur. HEMATOLOGY HISTORY: 01/26/2021 --The patient is a 75-year-old male who was referred by his primary care physician is erythrocytosis. The patient has had a number CBCs drawn over the years and most are available through the electronic medical record. I reviewed the record and the data can be summarized as follows: 10/06/2017 (and preceding years back to 09/05/2016)--hemoglobin 13.4-16.2 grams/deciliter. 10/16/2018--for significantly elevated hemoglobin of 19.3 grams/deciliter; since that time his hemoglobin has ranged between 18.2 grams/deciliter and 19.8 grams/deciliter.. I did recheck his CBC today and his hemoglobin is now still 19.8 grams/deciliter with hematocrit of53%. His MCV is normal. Today also has in the past his platelet count is normal or slightly low (today = 141). His white blood count is normal at 7 K The patient tells me that he did see a pony rougher here in [place], Dr. Hoskins, several years ago who recommended regular phlebotomy to bring his hemoglobin down to a more normal level. Dr. Hoskins and the patient stop getting phlebotomies. He did see Dr. Pierre here in this clinic on 10/03/2017. Dr. Pierre did do genetic studies for JAK2 mutation as well as IRAIDA 2 Exon12 mutation both of which were negative. He did measure an erythropoietin level which was said to be elevated but I can not find evaluate this time. He is a long-time smoker but quit in [address] scan of the abdomen pelvis done on 12/28/2020. That CT scan and revealed a 4.4 cm benign simple cyst extending off the inferior left kidney. X- ray reports from April 2007 also revealed this kidney cyst. He is not taking testosterone in any form nor any ckbz-[id number] androgen type erb or supplement. His significant past medical history includes: 1. Essential hypertension 2. GERD 3. Colonic polyps 4. TIA 5. Type 2 diabetes 6. History of Mayo's esophagus with dysplasia 7. Coronary disease without congestive heart failure 8. Benign left renal cyst Past Medical History: Diagnosis Date ??? Mayo [...] Heart stents: [facility] October/October Prior to Admission medications Medication Sig Start Date End Date Taking? Authorizing Provider aspirin 81 mg tablet Take one by mouth one time per day 06/27/08 Graham Zhang PA atorvastatin (LIPITOR) 80 mg tablet TAKE 1 TABLET BY MOUTH DAILY 05/18/20 Wesley Em MD cloNIDine (CATAPRES) 0.1 mg tablet Take 1 tablet (0.1 mg total) by mouth 3 (three) times a day 08/27/20 08/27/21 Wesley Em MD clopidogreL (PLAVIX) 75 mg tablet TAKE 1 TABLET BY MOUTH DAILY 05/18/20 Wesley Em MD esomeprazole DR (NexIUM) 40 mg capsule Take 1 capsule (40 mg total) by mouth daily before breakfast11/20/20 Wesley Em MD finasteride (PROSCAR) 5 mg tablet TAKE 1 TABLET BY MOUTH DAILY 05/18/20 Wesley Em MD hydroCHLOROthiazide (HYDRODIURIL) 12.5 mg tablet TAKE 1 TABLET BY MOUTH DAILY 06/17/20 JamesD. Em MD metoprolol tartrate (LOPRESSOR) 25 mg immediate release tablet TAKE 1 TABLET BY MOUTH TWO TIMES DAILY 07/14/20 Wesley Em MD oxyCODONE-acetaminophen (PERCOCET) 5-325 mg per tablet Take 1 tablet by mouth every 6 (six) hours as needed for pain 01/01/21 Wesley Em MD polyethylene glycol (MIRALAX) 17 gram packet Take 1 packet (17 g total) by mouth daily 12/28/20 Ford Killian MD potassium citrate ER (UROCIT-K) 10 mEq (1,080 mg) CR tablet take 1 tablet by oral route 2 times every day 10/12/16 Clary Peters NP tamsulosin (FLOMAX) 0.4 mg extended release capsule TAKE 1 CAPSULE BY MOUTH DAILY 03/19/20 Wesley Em MD valsartan (DIOVAN) 160 mg tablet Take 1 tablet (160 mg total) by mouth daily 08/20/19 12/25/20 Wesley Em MD Allergies Allergen Reactions ??? Ciprofloxacin Rash Reaction: RASH, Reaction: Rash, ??? Apple Social History Socioeconomic History ??? Marital status: Tobacco Use ??? Smoking status: Former Smoker Packs/day: 0.50 Years: 50.00 Pack years: 25.00 Types: Cigarettes Quit date: 2009 Years since quittin.3 ??? Smokeless tobacco: Never Used Vaping Use ??? Vaping Use: Never used Substance and Sexual Activity ??? Alcohol use: No ??? Drug use: No ??? Sexual activity: Defer Other Topics Concern ??? ADL RESPONSE Yes Comment: 16 oz coffee soda /day Social Determinants of Health Financial Resource Strain: Low Risk ??? Difficulty of Paying Living Expenses: Not very hard Transportation Needs: No Transportation Needs ??? Lack of Transportation (Medical): No ??? Lack of Transportation (Non-Medical): No Social Connections: Unknown ??? Frequency of Communication with Friends and Family: More than three times a week ??? Frequency of Social Gatherings with Friends and Family: More than three times a week ??? Marital Status: Family History Problem Relation Age of Onset ??? Hypertension Mother Hypertension; ??? Heart disease Mother Heart disease; ??? Diabetes Mother Diabetes mellitus; ??? Stroke Mother 66 Stroke; ??? Cancer Mother Cancer; ??? Alzheimer's disease Father Alzheimer's Disease; Review of Systems Constitutional: Negative for appetite change, chills, diaphoresis, fatigue, fever and unexpected weight change. HENT: Positive for hearing loss (Bilateral presbycusis). Negative for lump/mass, mouth sores, nosebleeds, sore throat, tinnitus, trouble swallowing and voice change. Eyes: Negative for eye problems and icterus. Respiratory: Negative for chest tightness, cough, hemoptysis, shortness of breath and wheezing. Cardiovascular: Negative for chest pain, leg swelling and palpitations. Gastrointestinal: Negative for abdominal distention, abdominal pain, blood in stool, constipation, diarrhea, nausea, rectal pain and vomiting. Endocrine: Negative for hot flashes. Genitourinary: Negative for bladder incontinence, difficulty urinating, dyspareunia, dysuria, frequency, hematuria and nocturia. Musculoskeletal: Negative for arthralgias, back pain, flank pain, gait problem, myalgias, neck painand neck stiffness. Skin: Negative for itching, rash and wound. Neurological: Negative for dizziness, extremity weakness, gait problem, headaches, light-headedness, numbness, seizures and speech difficulty. Hematological: Negative for adenopathy. Does not bruise/bleed easily. Psychiatric/Behavioral: Negative for confusion, decreased concentration, depression, sleep disturbance and suicidal ideas. The patient is not nervous/anxious. Objective Vitals BP (!) 184/85 (BP Location: Right arm) Pulse 80 Temp 36.2 ??C (97.2 ??F) (Skin) Resp 20 Ht 177.8 cm (5' 10 ) Wt 84.7 kg (186 lb 12.8 oz) SpO2 98% BMI 26.80 kg/m?? Physical Exam Vitals reviewed. Constitutional: General: He is not in acute distress. Appearance: He is well-developed. He is obese. He is not diaphoretic. Comments: He has a cipriano complexion. HENT: Head: Normocephalic and atraumatic. Right Ear: External ear normal. Left Ear: External ear normal. Nose: Nose normal. Eyes: General: No scleral icterus. Conjunctiva/sclera: Conjunctivae normal. Pupils: Pupils are equal, round, and reactive to light. Neck: Thyroid: No thyromegaly. Vascular: No JVD. Trachea: No tracheal deviation. Cardiovascular: Rate and Rhythm: Normal rate and regular rhythm. Heart sounds: Normal heart sounds. No murmur heard. No friction rub. No gallop. Pulmonary: Effort: Pulmonary effort is normal. No respiratory distress. Breath sounds: Normal breath sounds. No wheezing or rales. Chest: Chest wall: No tenderness. Abdominal: General: Bowel sounds are normal. There is no distension. Palpations: Abdomen is soft. There is no mass. Tenderness: There is no abdominal tenderness. There is no guarding. Musculoskeletal: General: Normal range of motion. Cervical back: Normal range of motion and neck supple. Lymphadenopathy: Cervical: No cervical adenopathy. Skin: General: Skin is warm and dry. Coloration: Skin is not pale. Findings: No erythema or rash. Neurological: Mental Status: He is alert and oriented to person, place, and time. Cranial Nerves: No cranial nerve deficit. Sensory: No sensory deficit. Motor: No abnormal muscle tone. Coordination: Coordination normal. Deep Tendon Reflexes: Reflexes normal. Psychiatric: Behavior: Behavior normal. Thought Content: Thought content normal. Judgment: Judgment normal. Lab/Radiology/Diagnostic Review: Recent Results (from the past 336 hour(s)) CBC with auto differential Collection Time: 10/20/21 2:25 PM Result Value Ref Range WBC 5.6 3.8 - 9.9 K/cumm Hgb 14.5 13.0 - 17.5 g/dL Hct 45.3 38.9 - 50.3 % Plt 191 150 - 400 K/cumm MPV 10.5 9.1 - 12.3 fL RBC 5.39 4.30 - 5.80 M/cumm MCV 84.0 81.3 - 96.4 fL MCH 26.9 (L) 27.1 - 33.3 pg MCHC 32.0 (L) 32.3 - 35.7 g/dL RDW CV 14.1 11.1 - 14.9 % RDW SD 42.6 35.7 - 48.1 fL NRBC abs Not Measured 0.00 - 0.01 K/cumm Differential, auto Collection Time: 10/20/21 2:25 PM Result Value Ref Range Neutrophil abs 3.7 1.7 - 6.5 K/cumm Imm gran abs Not Measured 0.0 - 0.1 K/cumm Lymphocyte abs 1.1 0.8 - 3.3 K/cumm Monocyte abs 0.6 0.2 - 0.8 K/cumm Eosinophil abs 0.1 0.0 - 0.5 K/cumm Basophil abs 0.1 0.0 - 0.1 K/cumm Neutrophil pct 66.2 % Imm gran pct Not Measured % Lymphocyte pct 19.7 % Monocyte pct 9.9 % Eosinophil pct 2.1 % Basophil pct 2.1 % Patient Active Problem List Diagnosis Date Noted ??? Obstructive sleep apnea 03/02/2021 ??? Hypersomnia [...] stones 2017 ??? Coronary artery disease involving pilot point coronary artery of pilot point heart without angina pectoris 2017 ??? Chronic GERD 2017 ??? Polycythemia 07/07/2017 ??? Sensorineural hearing loss, bilateral 05/05/2017 ??? Benign prostatic hyperplasia with lower urinary tract symptoms 12/26/2016 ??? Essential hypertension 12/26/2016 ??? Kidney stones 12/26/2016 ??? Hyperlipidemia 11/16/2013 documented in this encounter Miscellaneous Notes * Addendum Note - Alla Huerta CLT - 2021 3:15 PM CDTAddended by: ALLA HUERTA on: 01/11/2022 01:34 PM Modules accepted: Orders documented in this encounter Plan of Treatment Not on file documented as of this encounter Results * (ABNORMAL) CBC with auto differential (04/27/2022 9:40 AM CDT) WBC 5.7 3.8 - 9.9 K/cumm [facility] [...] 14.9 % [facility] ([facility]) RDW SD 43.9 35.7 - 48.1 fL [facility] ([facility]) NRBC abs Not Measured 0.00 - 0.01 K/cumm [facility] ([facility]) Blood 04/27/2022 9:40 AM CDT 04/27/2022 9:40 AM CDT Chintan Figueroa MD LAB BLOOD ORDERABLES Final Re sult [facility] ([facility]) [facility] [place] [address] * (ABNORMAL) CBC with auto differential (02/23/2022 [...] Final Re sult [facility] ([facility] [place] [address] * (ABNORMAL) CBC with auto differential (01/11/2022 [...] Final Re sult [facility] ([facility]) 1 [facility] Department [place] [address] documented in this encounter Visit Diagnoses Diagnosis Polycythemia Polycythemia, secondary documented in this encounter Orders Appointment Requests Count Last Ordered Date Fi rst Ordered Date ONCBCN CLINIC APPOINTMENT REQUEST 2 022 2021 ONCBCN INFUSION APPT REQUEST 3 04/27/2022 01/11/2022 ONCBCN LAB APPOINTMENT 3 04/27/202201/11 documented in this encounter Additional Health Concerns Infection Onset Date Last Indicated Resolved Time COVID: Suspected 12/08/2021 12/08/2021 12/08/2021 11:03 PM CDT documented as of this encounter Care Teams Air Pollution Auditor Relationship Specialty Start Date End Date Wesley Em MD PCP - General 09/30/16 12/01/21 Christine Herzog MD [address] [facility] [address] [place] [id number] PCP - General Internal Medicine 12/02/21 Trey Pinedo MD [address] [facility] [address] [place] [address] Consulting Physician Neurology 05/09/19 documented as of this encounter
--- OUTSIDE RECORDS SUMMARY | 2024-06-18 18:08 | XMS_ITS | Encounter Summary ---
Author Organization [facility] Healthcare Address [address] [place] [address] Care Team Providers Care Mobile Lab Technician Name Role Phone Wesley Em MD Primary Care Provider [phone] Trey Pinedo MD Unavailable [phone] Encounter Details Date Type Department Care Team (Late st Contact Info) Description 11/02/2021 12:20 PM CDT [facility] [address] [place] [address] Wesley Em MD [address] [place] [id number] Hypersomnia; Essential hypertension; Fatigue, unspecified type; Type 2 diabetes mellitus with hyperlipidemia (HCC) Discharge Disposition: Discharge to home or [...] than three times a week 12/31/2020 Attends Baptism Services Not on file 12/31 Active Member [...] on file 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 Gender Identity Not on file Sexual Orientation Straight 01/23/2021 10 :16 PM CDT documented as of this encounter Discharge Disposition Disposition Code Departure Means Destination Discharge to home or self care documented in this encounter Plan of Treatment Not on file documented as of this encounter Procedures Procedure Name Priority Date/Time Associated Diagnosis Comments DIFFERENTIAL AUTO Routine 11/02/2021 12: 21 PM CDT Fatigue, unspecified type Essential hypertension CBC WITH AUTO DIFFERENTIAL Routine 11/02/2021 12:21 PM CDT Fatigue, unspecified type Essential hypertension TSH Routine 11/02/2021 12:21 PM CDT Fatigue, unspecified type Hypersomnia T4, FREE Routine 11/02/2021 12:21 PM CDT Hypersomnia Essential hypertension LIPID PANEL Routine 11/02/2021 12:21 PM CDT Type 2 diabetes mellitus with hyperlipidemia (HCC) documented in this encounter Results * Differential, auto (11/02/2021 12:21 PM CDT) Neutrophil abs 3.9 1.7 - [...] 0.1 K/cumm [facility] ([facility]) Neutrophil pct 64.9 % [facility] ([facility]) Comment: Interpretive [...] was last revised on 2017. Lymphocyte pct 20.3 % [facility] ([facility]) Comment: Interpretive Data Percent cell count reference ranges are not reported, since discordance with absolute values may lead to misinterpretation of CBC data. Current Interpretive Data was last revised on 2017. Monocyte pct 9.0 % [facility] ([facility]) Comment: Interpretive Data Percent cell count reference ranges are not reported, since discordance with absolute values may lead to misinterpretation of CBC data. Current Interpretive Data was last revised on 2017. Eosinophil pct 3.3 % [facility] ([facility]) Comment: Interpretive Data Percent cell count reference ranges are not reported, since discordance with absolute values may lead to misinterpretation of CBC data. Current Interpretive Data was last revised on 2017. Basophil pct 2.2 % [facility] ([facility]) Comment: Interpretive Data Percent cell count reference ranges are not reported, since discordance with absolute values may lead to misinterpretation of CBC data. Current Interpretive Data was last revised on 2017. Blood 11/02/2021 12:2 1 PM CDT 11/02/2021 2:07 PM CDT us Wesley Em MD LAB BLOOD ORDERABLES Final Res ult [facility] ([facility] [place] [address] * (ABNORMAL) CBC with auto differential (11/02/2021 12:21 PM CDT) WBC 6.0 3.8 - 9.9 K/cumm [facility] ([facility]) Hgb 14.1 13.0 - 17.5 g/dL [facility] ([facility]) Hct 45.1 38.9 - 50.3 % [facility] ([facility]) Plt 223 150 - 400 K/cumm [facility] ([facility]) MPV 11.3 9.1 - 12.3 fL [facility] ([facility]) RBC 5.36 4.30 - 5.80 M/cumm [facility] ([facility]) [...] - 0.01 K/cumm [facility] ([facility]) Blood 11/02/2021 12:2 1 PM CDT 11/02/2021 2:07 PM CDT Narrative [facility] ([facility]) - 11/02/2021 2:14 PM CDT Pt will be getting labs in the next month us Wesley Em MD LAB BLOOD ORDERABLES Final Res ult [facility] ([facility]) [facility] [place] [address] * Lipid panel (11/02/2021 12:21 PM CDT) Cholesterol 122 30 - 199 mg/dL [facility] ([facility]) [...] Data was last revised on 2018. Triglycerides 85 <=149 mg/dL [facility] ([facility]) Comment: Interpretive [...] was last revised on 2018. LDL, calculated 64 <=129 mg/dL [facility] ([facility]) Comment: Interpretive [...] was last revised on 2018. Non-HDL Cholesterol 81 mg/dL [facility] ([facility] [...] last revised on 2018. Chol/HDL ratio 3 [facility] ([facility]) Blood 11/02/2021 12:2 1 PM CDT 11/02/2021 2:07 PM CDT Narrative [facility] ([facility] - 11/02/2021 2:53 PM CDT Pt will be getting labs in the next month Wesley Em MD LAB BLOOD ORDERABLES Final Res ult Performing Organization Address City/[facility]/ZIP Co de Phone Number [facility] ([facility]) [facility] [place] [id number] * TSH (11/02/2021 12:21 PM CDT) Thyroid Stimulating Hormone 3.68 0.30 - 4.20 mcIUnit/mL [facility] ([facility]) Blood 11/02/2021 12:2 1 PM CDT 11/02/2021 2:07 PM CDT Narrative [facility] ([facility] - 11/02/2021 2:53 PM CDT Pt will be getting labs in the next month Wesley Em MD LAB BLOOD ORDERABLES Final Res ult [facility] ([facility] [place] [address] * T4, free (11/02/2021 12:21 PM CDT) Free T4 1.17 0.90 - 1.70 ng/dL [facility] ([facility]) Blood 11/02/2021 12:2 1 PM CDT 11/02/2021 2:07 PM CDT Narrative [facility] ([place]) - 11/02/2021 2:53 PM CDT Pt will be getting labs in the next month us Wesley Em MD LAB BLOOD ORDERABLES Final Res ult [facility] ([place]) 1 [facility] [place] [address] documented in this encounter Visit Diagnoses Diagnosis Hypersomnia Hypersomnia, unspecified Essential hypertension Unspecified essential hypertension Fatigue, unspecified type Type 2 diabetes mellitus with hyperlipidemia (HCC) documented in this encounter Care Teams Mobile Lab Technician Relationship Specialty Start Date End Date Wesley Em MD PCP - General 09/30/16 12/01/21 Trey Pinedo MD [address] [place] [address] [address] [place] [address] Consulting Physician Neurology 05/09/19 documented as of this encounter
--- OUTSIDE RECORDS SUMMARY | 2024-06-18 18:08 | XMS_ITS | Encounter Summary ---
Author Organization [facility] Healthcare Address [address] [place] [address] Care Team Providers Care Paint Supervisor Name Role Phone Wesley Em MD Primary Care Provider [phone] Trey Pinedo MD Unavailable [phone] Reason for Referral * MRI/CAT/PET Scan (Routine) - Closed Specialty Diagnoses / Procedures Referred By Contac t Referred To Contact Radiology Diagnoses Bilateral carotid artery disease (HCC) Procedures CTA Head Neck W WO Contrast Gadiel Genao MD Phone: tel: fax: [address] [phone] Referral ID Status Reason Start Date Expiration Date Visits Re quested Visits Authorized [id number] Closed 04/28/2021 05/28/2022 1 1 ETING REGIONAL CONSULTANT Reason for Visit * MRI/CAT/PET Scan (Routine) - Closed Specialty Diagnoses / Procedures Referred By Contac t Referred To Contact Radiology Diagnoses Bilateral carotid artery disease (HCC) Procedures CTA Head Neck W WO Contrast Gadiel Genao MD Phone: tel: fax: [address] [address] Referral ID Status Reason Start Date Expiration Date Visits Re quested Visits Authorized [id number] Closed 04/28/2021 05/28/2022 1 1 Encounter Details Date Type Department Care Team (Latest Contact Info) Description 05/25/2021 1:29 PM MARKETING REGIONAL CONSULTANT - 05/25/2021 11:59 PM MARKETING REGIONAL CONSULTANT Hospital Encounter [facility] [address] [place] [address] Gadiel Genao MD [id number] [place] [address] Bilateral carotid artery disease (CMS/HCC) (HCC) Discharge Disposition: Discharge to home [...] than three times a week 12/31/2020 Attends [employer] Services Not on file 12/31 Active Member [...] on file 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 MARKETING REGIONAL CONSULTANT Gender Identity Not on file Sexual Orientation Straight 01/23/2021 10 :16 PM CDT documented as of this encounter Medications at Time of Discharge aspirin 81 mg tablet Take one by mouth one time per day 0 0 06/27/2008 atorvastatin (LIPITOR) 80 mg tablet TAKE 1 TABLET BY MOUTH DAILY 90 tablet 3 05/18/2020 2 cloNIDine (CATAPRES) 0.1 mg tablet Take 1 tablet (0.1 mg total) by mouth 3 (three) times a day 270 tablet 3 08/27/2020 2 clopidogreL (PLAVIX) 75 mg tablet TAKE 1 TABLET BY MOUTH DAILY 90 tablet 3 05/18/[address] (NexIUM) 40 mg capsule Take 1 capsule (40 mg total) by mouth daily before breakfast 90 capsule 3 11/20/2020 2 finasteride (PROSCAR) 5 mg tablet TAKE 1 TABLET BY MOUTH DAILY 90 tablet 3 05/18/2020 2 hydroCHLOROthiaz inder (HYDRODIURIL) 12.5 mg tablet TAKE 1 TABLET BY MOUTH DAILY 90 tablet 3 06/17/2020 2 metoprolol tartrate (LOPRESSOR) 25 mg immediate release tablet TAKE 1 TABLET BY MOUTH TWO TIMES DAILY 180 tablet 3 07/14/2020 2 potassium citrate ER (UROCIT-K) 10 mEq (1,080 mg) CR tablet take 1 tablet by oral route 2 times every day 0 0 10/12/2016 2 tamsulosin (FLOMAX) 0.4 mg extended release capsule TAKE 1 CAPSULE BY MOUTH DAILY 90 capsule 3 03/19/2020 2 valsartan (DIOVAN) 160 mg tablet Take 1 tablet (160 mg total) by mouth daily 90 tablet 3 03/09/2021 2 documented as of this encounter Discharge Disposition Disposition Code Departure Means Destination Discharge to home or self care documented in this encounter Plan of Treatment Not on file documented as of this encounter Procedures Procedure Name Priority Date/Time Associated Diagnosis Comments CTA HEAD NECK W WO CONTRAST Schedule Routine, Read Routine (OP Routine) 05/25/2021 2:40 PM MARKETING REGIONAL CONSULTANT Bilateral carotid artery disease (CMS/HCC) (HCC) POCT CREATININE - DEVICE Routine 05/25/2021 2:17 PM MARKETING REGIONAL CONSULTANT documented in this encounter Results * CTA Head Neck W WO Contrast (05/25/2021 2:40 PM MARKETING REGIONAL CONSULTANT) Anatomical Region Laterality Modality Head and Neck N/A Computed Tomogra phy 05/25/2021 3:52 PM MARKETING REGIONAL CONSULTANT Impressions 05/25/2021 4:59 PM MARKETING REGIONAL CONSULTANT No acute intracranial abnormality. Minimal atherosclerotic calcifications in the bilateral carotid bulbs without stenosis. Dictated by: Milka Cano MD The radiology attending physician has personally reviewed this study, and had reviewed and/or edited this written report and agrees with it. Electronically signed by: Nadine Soliman M.D. Narrative 05/25/2021 4:59 PM MARKETING REGIONAL CONSULTANT EXAMINATION: Computed tomography angiography (CTA) of the head without and with contrast Computed tomography angiography (CTA) of the neck with contrast HISTORY: Bilateral carotid artery disease TECHNIQUE: Computed tomography of the head was performed without contrast according to standard protocol. Computed tomographic angiography was then obtained from the aortic arch to the vertex following the uneventful administration of intravenous contrast. 3D images were generated on a dedicated workstation. Contrast information: 94 mL Optiray-350 COMPARISON: MRI brain 05/08/2019 FINDINGS: Topogram demonstrates no lytic lesions or fractures. There is no acute intracranial hemorrhage . There is generalized parenchymal volume loss with exvacuodilatation of ventricles. No interval change in the caliber of ventricles. No mass effect or midline shift is present. No interval change in the encephalomalacia involving the left medial frontal lobe. No interval change in the nonspecific white matter changes predominantly in the periventricular regions most likely sequela of chronic ischemic small vessel disease. Chronic lacunar infarction in the right thalamus, right basal ganglia. The visualized portions of the orbits are normal. The visualized portions of the mastoids are normal. Mild mucosal thickening in the bilateral ethmoidal air cells. Retention cyst in the bilateral maxillary sinuses. Aerated secretions in the sphenoid sinuses.. No fractures are identified. Scattered subcentimeter lymph nodes are seen in the neck. None are pathologically enlarged or abnormally enhancing. The muscles of the neck are normal. Fascial planes are preserved and the deep spaces of the neck are normal. The visualized airway is widely patent. No significant spinal canal stenosis. Multilevel disc degenerative changes, most prominent at the level of C5-C6. Multilevel uncovertebral hypertrophy and facet arthropathy Limited examination of the superior thorax shows no pulmonary infiltrate, suspicious nodules, or pleural effusions. Angiographic findings: The visualized aortic arch appears normal with normal configuration of the great vessels. Significant atherosclerotic calcifications, soft tissue plaque involving the aortic arch . The innominate artery and both subclavian arteries are normal in course and caliber. The common carotid arteries are normal in course and caliber with normal carotid bifurcations bilaterally. Tortuous course of the bilateral cervical internal carotid arteries and medial course of the bilateral internal proximal carotid arteries.. Mild atherosclerotic calcifications in the bilateral carotid bulbs without causing stenosis. There are atherosclerotic calcifications in the bilateral cavernous segments causing up to [id number] stenosis. The hzkvtu-ai-Yhjuai is complete. The anterior and middle cerebral arteries are normal. Dominant left vertebral artery. The basilar artery is normal. The posterior cerebral arteries are normal. There is no aneurysm or vascular malformation identified. Procedure Note Nadine Soliman MD - 05/25/2021 EXAMINATION: Computed tomography angiography (CTA) of the head without and with contrast Computed tomography angiography (CTA) of the neck with contrast HISTORY: Bilateral carotid artery disease TECHNIQUE: Computed tomography of the head was performed without contrast according to standard protocol. Computed tomographic angiography was then obtained from the aortic arch to the vertex following the uneventful administration of intravenous contrast. 3D images were generated on a dedicated workstation. Contrast information: 94 mL Optiray-350 COMPARISON: MRI brain 05/08/2019 FINDINGS: Topogram demonstrates no lytic lesions or fractures. There is no acute intracranial hemorrhage . There is generalized parenchymal volume loss with exvacuodilatation of ventricles. No interval change in the caliber of ventricles. No mass effect or midline shift is present. No interval change in the encephalomalacia involving the left medial frontal lobe. No interval change in the nonspecific white matter changes predominantly in the periventricular regions most likely sequela of chronic ischemic small vessel disease. Chronic lacunar infarction in the right thalamus, right basal ganglia. The visualized portions of the orbits are normal. The visualized portions of the mastoids are normal. Mild mucosal thickening in the bilateral ethmoidal air cells. Retention cyst in the bilateral maxillary sinuses. Aerated secretions in the sphenoid sinuses.. No fractures are identified. Scattered subcentimeter lymph nodes are seen in the neck. None are pathologically enlarged or abnormally enhancing. The muscles of the neck are normal. Fascial planes are preserved and the deep spaces of the neck are normal. The visualized airway is widely patent. No significant spinal canal stenosis. Multilevel disc degenerative changes, most prominent at the level of C5-C6. Multilevel uncovertebral hypertrophy and facet arthropathy Limited examination of the superior thorax shows no pulmonary infiltrate, suspicious nodules, or pleural effusions. Angiographic findings: The visualized aortic arch appears normal with normal configuration of the great vessels. Significant atherosclerotic calcifications, soft tissue plaque involving the aortic arch . The innominate artery and both subclavian arteries are normal in course and caliber. The common carotid arteries are normal in course and caliber with normal carotid bifurcations bilaterally. Tortuous course of the bilateral cervical internal carotid arteries and medial course of the bilateral internal proximal carotid arteries.. Mild atherosclerotic calcifications in the bilateral carotid bulbs without causing stenosis. There are atherosclerotic calcifications in the bilateral cavernous segments causing up to uzgy-zy-ayllwjjz stenosis. The zcwtrj-ei-Ciyhlf is complete. The anterior and middle cerebral arteries are normal. Dominant left vertebral artery. The basilar artery is normal. The posterior cerebral arteries are normal. There is no aneurysm or vascular malformation identified. IMPRESSION: No acute intracranial abnormality. Minimal atherosclerotic calcifications in the bilateral carotid bulbs without stenosis. Dictated by: Milka Cano MD The radiology attending physician has personally reviewed this study, and had reviewed and/or edited this written report and agrees with it. Electronically signed by: Nadine Soliman M.D. Gadiel Genao MD IMG CT PROCEDURES Final Re sult * POCT creatinine (05/25/2021 2:17 PM MARKETING REGIONAL CONSULTANT) Creatinine POC 1.1 0.7 - 1.3 mg/dL [facility] Blood 05/25/2021 2:17 PM MARKETING REGIONAL CONSULTANT 05/25/2021 2:17 PM MARKETING REGIONAL CONSULTANT Gadiel Genao MD LAB POCT ORDERABLES - TATUM CE Final Result [facility] Department [place] [address] documented in this encounter Visit Diagnoses Diagnosis Bilateral carotid artery disease (HCC) Unspecified disorders of arteries and arterioles documented in this encounter Administered Medications Inactive Administered Medications - up to 3 most recent administrations Medication Order MAR Action Action Date Dose Rate Site ioversoL (OPTIRAY 350) syringe syringe 100 mL 100 mL, intravenous, Once in imaging, contrast, Starting on 05/25/21 at 1436, For 1 dose Contrast Given 05/25/2021 2:25 PM MARKETING REGIONAL CONSULTANT 94 mL documented in this encounter Orders Medications Ordered That Reg ht Not Have Been Administered Count Last Ordered Date First Ordered Date ioversoL (OPTIRAY 350) syrin ge syringe 100 mL 1 05/25/2021 documented in this encounter Care Teams Paint Supervisor Relationship Specialty Start Date End Date Wesley Em MD PCP - General 09/30/16 12/01/21 Trey Pinedo MD [address] [facility] [address] [place] [address] Consulting Physician Neurology 05/09/19 documented as of this encounter
--- OUTSIDE RECORDS SUMMARY | 2024-06-18 18:08 | XMS_ITS | Encounter Summary ---
Author Organization [facility] Healthcare Address [address] [place] [address] Care Team Providers Care Veterinary Bacteriologist Name Role Phone Wesley Em MD Primary Care Provider [phone] Trey Pinedo MD Unavailable [phone] Encounter Details Date Type Department Care Team (Late st Contact Info) Description 05/20/2021 3:00 PM TRUCK DRIVER'S OFFSIDER Lab [facility] [address] [facility] [address] [place] [id number] Polycythemia Social History Tobacco Use Types Packs/Day [...] on file 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 TRUCK DRIVER'S OFFSIDER Gender Identity Not on file Sexual Orientation Straight 01/23/2021 10 :16 PM CDT documented as of this encounter Last Filed Vital Signs Vital Sign Reading Time Taken Comments Blood Pressure 166/86 05/20/2021 1:54 PM TRUCK DRIVER'S OFFSIDER Pulse 72 05/20/2021 1:54 PM TRUCK DRIVER'S OFFSIDER Temperature 36.6 ??C (97.8 ??F) 05/20/2021 1:54 PM CS T Respiratory Rate 20 05/20/2021 1:54 PM TRUCK DRIVER'S OFFSIDER Oxygen Saturation 93% 05/20/2021 1:54 PM TRUCK DRIVER'S OFFSIDER Inhaled Oxygen Concentration - - Weight 86.2 kg (190 lb) 05/20/2021 1:54 PM TRUCK DRIVER'S OFFSIDER Height - - Body Mass Index 27.26 04/20/2021 3:09 PM CDT documented in this encounter Plan of Treatment Not on file documented as of this encounter Procedures Procedure Name Priority Date/Time Associated Diagnosis Comments DIFFERENTIAL AUTO Routine 05/20/2021 1:5 5 PM TRUCK DRIVER'S OFFSIDER Polycythemia CBC WITH AUTO DIFFERENTIAL Routine 05/20/2021 1:55 PM TRUCK DRIVER'S OFFSIDER Polycythemia documented in this encounter Results * Differential, auto (05/20/2021 1:55 PM TRUCK DRIVER'S OFFSIDER) Neutrophil abs 4.7 1.7 - 6.5 K/cumm [facility] ([facility]) Imm gran abs Not Measured 0.0 - 0.1 K/cumm [facility] ([facility]) Lymphocyte abs 1.0 0.8 - 3.3 K/cumm [facility] ([facility]) Monocyte abs 0.6 0.2 - 0.8 K/cumm [facility] ([facility]) Eosinophil abs 0.2 0.0 - 0.5 K/cumm [facility] ([facility]) Basophil abs 0.1 0.0 - 0.1 K/cumm [facility] ([facility]) Neutrophil pct 70.7 % [facility] ([facility]) Comment: Interpretive [...] was last revised on 2017. Lymphocyte pct 15.0 % [facility] ([facility]) Comment: Interpretive Data Percent cell count reference ranges are not reported, since discordance with absolute values may lead to misinterpretation of CBC data. Current Interpretive Data was last revised on 2017. Monocyte pct 9.2 % [facility] ([facility]) Comment: Interpretive Data Percent cell count reference ranges are not reported, since discordance with absolute values may lead to misinterpretation of CBC data. Current Interpretive Data was last revised on 2017. Eosinophil pct 3.0 % [facility] ([facility]) Comment: Interpretive [...] Data was last revised on 2017. Blood 05/20/2021 1:55 PM TRUCK DRIVER'S OFFSIDER 05/20/2021 1:59 PM TRUCK DRIVER'S OFFSIDER Chintan Figueroa MD LAB BLOOD ORDERABLES Final Re sult [facility] ([facility]) [address] [facility] Department [place] [address] * CBC with auto differential (05/20/2021 1:55 PM TRUCK DRIVER'S OFFSIDER) WBC 6.6 3.8 - 9.9 K/cumm [facility] ([facility]) Hgb 17.3 13.0 - 17.5 g/dL [facility] ([facility]) Hct 48.5 38.9 - 50.3 % [facility] ([facility]) Plt 192 150 - 400 K/cumm [facility] ([facility]) MPV 10.4 9.1 - 12.3 fL [facility] ([facility]) RBC 5.40 4.30 - 5.80 M/cumm [facility] ([facility]) MCV 89.8 81.3 - 96.4 fL [facility] ([facility]) MCH 32.0 27.1 - 33.3 pg [facility] ([facility]) MCHC 35.7 32.3 - 35.7 g/dL [facility] ([facility]) RDW CV 12.1 11.1 - 14.9 % [facility] ([facility]) RDW SD 39.5 35.7 - 48.1 fL [facility] ([facility]) NRBC abs Not Measured 0.00 - 0.01 K/cumm [facility] ([facility]) Blood 05/20/2021 1:55 PM TRUCK DRIVER'S OFFSIDER 05/20/2021 1:59 PM TRUCK DRIVER'S OFFSIDER Chintan Figueroa MD LAB BLOOD ORDERABLES Final Re sult [facility] ([facility] [address] [facility] Department [place] [address] documented in this encounter Visit Diagnoses Diagnosis Polycythemia Polycythemia, secondary documented in this encounter Orders Appointment Requests Count Last Ordered Date Fi rst Ordered Date ONCBCN LAB APPOINTMENT 1 05/20/2021 documented in this encounter Care Teams Veterinary Bacteriologist Relationship Specialty Start Date End Date Wesley Em MD PCP - General 09/30/16 12/01/21 Trey Pinedo MD [address] [place] [address] [address] [place] [address] [address] Consulting Physician Neurology 05/09/19 documented as of this encounter
--- OUTSIDE RECORDS SUMMARY | 2024-06-18 18:09 | XMS_ITS | Encounter Summary ---
Author Organization [facility] Address [address] [place] [address] Care Team Providers Care Telephone Advice Nurse Name Role Phone Wesley Em MD Primary Care Provider [phone] Trey Pinedo MD Unavailable [phone] Reason for Visit * Reason Comments Medicare Annual Wellness Visit [place] [facility] Encounter Details Date Type Department Care Team (Late st Contact Info) Description 03/04/2021 2:30 PM CDT Office Visit [facility] [address] [facility] [address] [place] [address] Wesley Em MD [address] [place] [address] [address] [place] [address] Medicare annual wellness visit, subsequent (Primary Dx); Overweight with body mass index (BMI) of 29 to 29.9 in adult; Coronary artery disease involving northern cheyenne coronary artery of northern che[place]enne heart without angina pectoris; Essential hypertension; Peripheral arterial disease (CMS/HCC) (HCC); Polycythemia; Sensorineural hearing loss, bilateral; 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); Mixed hyperlipidemia; Obstructive sleep apnea; Drug-induced erectile dysfunction Social History Tobacco Use Types Packs/Day Years [...] have a drink containing alc ohol? Never 03/02/2021 Average Number of Drinks Not on file 021 Q3: How often do you have si x or more drinks on one occasion? 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 Gender Identity Not on file Sexual Orientation Straight 01/23/2021 10 :16 PM CDT documented as of this encounter Last Filed Vital Signs Vital Sign Reading Time Taken Comments Blood Pressure 120/64 03/04/2021 2:51 PM CDT Pulse 60 03/04/2021 2:51 PM CDT Temperature - - Respiratory Rate 22 03/04/2021 2:51 PM CDT Oxygen Saturation - - Inhaled Oxygen Concentration - - Weight 89.4 kg (197 lb) 03/04/2021 2:51 PM CDT Height 175.3 cm (5' 9 ) 03/04/2021 2:51 PM CDT Body Mass Index 29.09 03/04/2021 2:51 PM CDT documented in this encounter Progress Notes * Wesley Em MD - 03/04/2021 2:30 PM CDT Subjective/Objective Patient ID: Villa Zuniga is a 75 y.o. male. Chief Complaint Medicare Annual Wellness Visit Subsequent (W) HPI 75-year-old seen today with his son TARIK he had a CT scan done this week was post be CT angiogram the lower extremities but the patient was unable to lay on the CT scan table long enough for them to administer the dye because he was having low back pain. He states he cannot lay for long appears time on a hard surface. Radiology noted on the CT report that the patient refuse IV contrast but that was not the case according to the patient. He was having the CT scan done for evaluation of probable peripheral vascular disease he had Doppler examination is suggesting that his plain CT scan done without contrast did show some peripheral vascular disease the patient does not walk long distances sade use of chronic lower extremity pain. The family is concerned that he could have significant peripheral arterial disease the patient was a heavy smoker most of his life he did quit 2008 but has greater than 40 pack year history of smoking he does do a low-dose CT scan yearly most recent 02 December 2027 21 no pulmonary nodules were noted and the patient and his son TARIK understands he should continue low-dose CT scan of the chest each December through age 80 for lung cancer screening The patient has sleep apnea documented by sleep study but he currently refuses CPAP he Sanjay sleep specialist at [facility] understands that without using his CPAP machine his blood pressure may be more difficult to control any may suffer from a arrhythmias including atrial fibrillationor more serious arrhythmias that could be life-threatening and that uncontrolled sleep apnea can lead to fatigue chronic headaches the patient states he will work with the sleep specialist Patient has been having erectile dysfunction as noted above he has been heavy smoker most of his life he is on multiple medications he 75 years of age we talked about different treatments for but he states he wants to push off any treatment with Viagra or Cialis until his circulation issues maybe better defined Patient does not do flu vaccines he does not do pneumonia vaccine heart tetanus he did have a Tdap in 2007 he was encouraged get a tetanus next time he gets a cutter scrape he states he may do that he declines shingles vaccine he did get the COVID-19 vaccine without side effects Patient had a colonoscopy December 2017 total come back this year so get set up with his GI specialist for this fall depending on schedule He does see Dr. Figueroa Hematology Oncology for his polycythemia in after a thorough workup by Hematology Oncology the the patient is undergoing therapeutic phlebotomy on a regular basis Patient is allergic to Cipro causing her rash Patient no longer smokes patient does not drink alcohol The patient is seen in [facility] he does have a history of cardiac stents 3 stents putin his coronary anatomy he is having no chest pain he has a history of carotid artery disease hypertension COPD colon polyps history of kidney stones and BPH rising PSA he also has a history of Mayo's esophagus The patient is to [place] a patient here in the practice as well they have grown children he is accompanied by his son TARIK who is helping not only [place] but Summer with her health problems. The patient worked at [employer] for 40 years Review of Systems Review of Systems neurological no headaches no syncope no seizure visual changes or paresthesias cardio no chest pain palpitations or exertional symptoms pulmonary no shortness of breath cough wheeze hemoptysis GI no melena no hematochezia pain nausea change in stools genitourinary no dysuria hematuria pain or change in habits musculoskeletal no joint swelling deformity muscle pain or weakness psych no anxiety depression or suicide ideation hematological no bleeding or bruising Vitals: 03/04/21 1451 BP: 120/64 BP Location: Left arm Patient Position: Sitting Pulse: 60 Resp: 22 Weight: 89.4 kg (197 lb) Height: 175.3 cm (5' 9 ) Physical Exam The head is normocephalic atraumatic both back membranes are normal oral cavity is unremarkable no oral lesions neck is supple no carotid bruits thyromegaly neck masses adenopathy no thyromegaly a his lungs are clear but decreased breath sounds throughout cardiovascular regular without murmurs gallops clicks rubs the abdomen is obese soft nontender extremities reveal no edema no cords Homans signs negative patient moves all 4 extremities without difficulty gait is unremarkable Assessment/Plan Diagnoses and all orders for this visit: Medicare annual wellness visit, subsequent (Primary) Encouraged immunizations the patient declines he changes mind he will let us know Overweight with body mass index (BMI) of 29 to 29.9 in adult Daily exercise recommended but his son TARIK does not think he can walk 2 blocks without stopping Coronary artery disease involving northern cheyenne coronary artery of northern che[place]enne heart without angina pectoris Patient has had 3 stents put in he is taking aspirin statin he needs lose weight exercise low bit more often will follow-up with Cardiology as directed will get set up for carotid Doppler examinationas well Essential hypertension Control with current regimen will continue to monitor Peripheral arterial disease ([facility]) ([facility]) Refer to cardiology for arteriogram and possible stent placement Polycythemia Much improved with therapeutic phlebotomy as directed by Hematology Oncology Sensorineural hearing loss, bilateral Continue using hearing aids follow-up with hearing doctor as directed Type 2 diabetes mellitus with hyperlipidemia ([facility]) ([facility]) His A1c test 6.0 he is taking no medication controlling with diet activity he may just simply have pre diabetes Mixed hyperlipidemia Taking atorvastatin 80 mg without side effects continue to watch for muscle pain muscle weakness dark-colored urine Obstructive sleep apnea Follow-up with sleep specialist encourage CPAP Drug-induced erectile dysfunction Recommended Viagra or Cialis but patient wishes to wait until circulation status is clarified Will get set up for his colonoscopy he also he needs a EGD for his Mayo's esophagus Side effects, risks, interactions reviewed with patient. [...] as of this encounter Visit Diagnoses Diagnosis Medicare annual wellness visit, subsequent- Primary Overweight with body mass index (BMI) of 29 to 29.9 in adult Coronary artery disease involving northern cheyenne coronary artery of northern cheyenne heart without angina pectoris Essential hypertension Unspecified essential hypertension Peripheral arterial disease (HCC) Unspecified peripheral vascular disease Polycythemia Polycythemia, secondary Sensorineural hearing loss, bilateral Type 2 diabetes mellitus with hyperlipidemia (HCC) Mixed hyperlipidemia Obstructive sleep apnea Obstructive sleep apnea (adult) (pediatric) Drug-induced erectile dysfunction documented in this encounter Care Teams Telephone Advice Nurse Relationship Specialty Start Date End Date Wesley Em MD PCP - General 09/30/16 12/01/21 Trey Pinedo MD [address] [place] [address] [place] [address] Consulting Physician Neurology 05/09/19 documented as of this encounter
--- OUTSIDE RECORDS SUMMARY | 2024-06-18 18:09 | XMS_ITS | Encounter Summary ---
Author Organization [facility] Healthcare Address [address] [place] [address] Care Team Providers Care Consumer Experience Consultant Name Role Phone Wesley Em MD Primary Care Provider [phone] Trey Pinedo MD Unavailable [phone] Encounter Details Date Type Department Care Team (Late st Contact Info) Description 03/01/2021 Telephone [facility] [address] [place] [address] Nadja Valderrama, RT Social History Tobacco Use Types Packs/Day Years [...] than three times a week 12/31/2020 Attends Judaism Services Not on file 12/31 Active Member [...] more points, staff should administer the PHQ-9) 4 03/02/2021 PRAPARE - Transportation Answer Date Re corded [...] on file 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 Gender Identity Not on file Sexual Orientation Straight 01/23/2021 10 :16 PM CDT documented as of this encounter Miscellaneous Notes * Telephone Encounter - Nadja Valderrama RT - 03/01/2021 11:38 AM CDT No answer @ 11:38 documented in this encounter Plan of Treatment Not on file documented as of this encounter Visit Diagnoses Not on filedocumented in this encounter Care Teams Consumer Experience Consultant Relationship Specialty Start Date End Date Wesley Em MD PCP - General 09/30/16 12/01/21 Trey Pinedo MD [address] [place] [address] [place] [address] Consulting Physician Neurology 05/09/19 documented as of this encounter
--- OUTSIDE RECORDS SUMMARY | 2024-06-18 18:09 | XMS_ITS | Encounter Summary ---
Author Organization [facility] Address [address] [place] [address] Care Team Providers Care Credit Control Clerk Name Role Phone Wesley Em MD Primary Care Provider Trey Pinedo MD Unavailable [phone] Encounter Details Date Type Department Care Team (Late st Contact Info) Description 04/26/2021 Telephone [facility] [address] [facility] [address] [place] [address] Wesley Em MD [address] [address] [address] [place], [place] [id number] Social History Tobacco Use Types Packs/Day Years [...] than three times a week 12/31/2020 Attends Mormon Services Not on file 12/31 Active Member [...] on file 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 Thank you documented in this encounter Plan of Treatment Not on file documented as of this encounter Visit Diagnoses Not on filedocumented in this encounter Care Teams Credit Control Clerk Relationship Specialty Start Date End Date Wesley Em MD PCP - General 09/30/16 12/01/21 Trey Pinedo MD [address] [place] [address] [place] [address] Consulting Physician Neurology 05/09/19 documented as of this encounter
--- OUTSIDE RECORDS SUMMARY | 2024-06-18 18:09 | XMS_ITS | Encounter Summary ---
Author Organization [facility] Address [address] [place] [address] Care Team Providers Care Hydraulic Dredge Operator Name Role Phone Wesley Em MD Primary Care Provider [phone] Trey Pinedo MD Unavailable [phone] Reason for Visit * Reason Comments Follow-up Encounter Details Date Type Department Care Team (Late st Contact Info) Description 03/02/2021 11:30 AM CDT Office Visit 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 Gender Identity Not on file Sexual Orientation Straight 01/23/2021 10 :16 PM CDT documented as of this encounter Last Filed Vital Signs Vital Sign Reading Time Taken Comments Blood Pressure 138/80 03/02/2021 11:24 AM CDT Pulse 48 03/02/2021 11:24 AM CDT Temperature 36.5 ??C (97.7 ??F) 03/02/2021 11:24 AM C DT Respiratory Rate 16 03/02/2021 11:24 AM CDT Oxygen Saturation 97% 03/02/2021 11:24 AM CDT Inhaled Oxygen Concentration - - Weight 88.9 kg (196 lb) 03/02/2021 11:24 AM CDT Height 175.3 cm (5' 9 ) 03/02/2021 11:24 AM CDT Body Mass Index 28.94 03/02/2021 11:24 AM CDT documented in this encounter Progress Notes * Frances Huston, LEADLIGHTER - 03/02/2021 11:30 AM CDT Images from the original note were not included. Patient ID: Villa Zuniga is a 75 y.o. male. HPI. Patient is a 75 y.o. male returns for follow-up after having a nocturnal polysomnogram split night protocol. The patient completed a nocturnal polysomnogram on February 24, 2021. The patient was found have an overall apnea- hypopnea index 68.1 times per hour sleep. The lowest oxygen saturation recorded is 84%. The patient spent 4.6 minutes with an overall oxygen saturation below 90%. Periodic limb movement index was 3.3 times per hour sleep. The patient was placed on CPAP and titrated up to a pressure of 5 cm water pressure. At 5 cm water pressure the AHI was 0.5 times per hour sleep. The average oxygen saturation at the optimal pressure was 90-99%. The periodic limb movement index was 10.5 times per hour sleep. These results shared with the patient. The patient states that he does notwant to proceed with CPAP therapy. The patient states that during the night of the study he did askfor the CPAP to be removed. Chief Complaint Patient presents with ??? Follow-up Current Medications: Outpatient Encounter Medications as of 03/02/2021 Medication Sig Dispense Refill ??? aspirin 81 mg tablet Take one by mouth one time per day 0 0 ??? atorvastatin (LIPITOR) 80 mg tablet TAKE 1 TABLET BY MOUTH DAILY 90 tablet 3 ??? cloNIDine (CATAPRES) 0.1 mg tablet Take 1 tablet (0.1 mg total) by mouth 3 (three) times a day (Patient taking differently: Take 0.1 mg by mouth 2 (two) times a day ) 270 tablet 3 ??? clopidogreL (PLAVIX) 75 mg tablet TAKE 1 TABLET BY MOUTH DAILY 90 tablet 3 ??? esomeprazole DR (NexIUM) 40 mg capsule Take 1 capsule (40 mg total) by mouth daily before breakfast 90 capsule 3 ??? finasteride (PROSCAR) 5 mg tablet TAKE 1 TABLET BY MOUTH DAILY 90 tablet 3 ??? hydroCHLOROthiazide (HYDRODIURIL) 12.5 mg tablet TAKE 1 TABLET BY MOUTH DAILY 90 tablet 3 ??? metoprolol tartrate (LOPRESSOR) 25 mg immediate release tablet TAKE 1 TABLET BY MOUTH TWO TIMESDAILY 180 tablet 3 ??? potassium citrate ER (UROCIT-K) 10 mEq (1,080 mg) CR tablet take 1 tablet by oral route 2 timesevery day 0 0 ??? tamsulosin (FLOMAX) 0.4 mg extended release capsule TAKE 1 CAPSULE BY MOUTH DAILY 90 capsule 3 ??? valsartan (DIOVAN) 160 mg tablet Take 1 tablet (160 mg total) by mouth daily 90 tablet 3 ??? [DISCONTINUED] oxyCODONE-acetaminophen (PERCOCET) 5-325 mg per tablet Take 1 tablet by mouth every 6 (six) hours as needed for pain 20 tablet 0 ??? [DISCONTINUED] polyethylene glycol (MIRALAX) 17 gram packet Take 1 packet (17 g total) by mouthdaily 30 packet 0 No facility-administered encounter medications on file as of 03/02/2021. Review of Systems Constitutional: Negative for fever. HENT: Negative for tinnitus. Eyes: Negative for visual disturbance. Respiratory: Negative for cough, shortness of breath and wheezing. Cardiovascular: Negative for chest pain. Gastrointestinal: Negative for diarrhea, nausea and vomiting. Skin: Negative for rash. Neurological: Negative for dizziness. BP 138/80 Pulse (!) 48 Temp 36.5 ??C (97.7 ??F) Resp 16 Ht 175.3 cm (5' 9 ) Wt 88.9 kg (196 lb) SpO2 97% BMI 28.94 kg/m?? Physical Exam Constitutional: General: He is not in acute distress. HENT: Mouth/Throat: Pharynx: No oropharyngeal exudate. Eyes: Pupils: Pupils are equal, round, and reactive to light. Cardiovascular: Rate and Rhythm: Normal rate and regular rhythm. Pulmonary: Effort: Pulmonary effort is normal. Breath sounds: Normal breath sounds. No wheezing. Abdominal: Palpations: Abdomen is soft. Musculoskeletal: Cervical back: Normal range of motion. Imaging: No results found. Assessment & Plan: Diagnoses and all orders for this visit: Obstructive sleep apnea (Primary) Assessment & Plan: The patient was offered alternatives to the [...] and possible . The patient verbalized understanding. Return if symptoms worsen or fail to improve. Frances Huston NP Cosigned by Leandro Matamoros MD at 03/02/2021 2:30 PM CDT documented in this encounter Miscellaneous Notes * Assessment & Plan Note - Frances Huston NP - 03/02/2021 12:47 PM CDT Associated Problem(s): Obstructive sleep apnea The patient was offered alternatives to the [...] and possible . The patient verbalized understanding. documented in this encounter Plan of Treatment Not on file documented as of this encounter Visit Diagnoses Diagnosis Obstructive sleep apnea- Primary Obstructive sleep apnea (adult) (pediatric) documented in this encounter Discontinued Medications Medication Sig Discontinue Reason Start Date End Da te polyethylene glycol (MIRALAX) 17 gram packetIndications:alexeyi pation Take 1 packet (17 g total) by mouth daily Therapy completed 12/28/2020 03/02/2021 oxyCODONE-acetaminophen (PERCOCET) 5-325 mg per tabletIndications:Pain Take 1 tablet by mouth every 6 (six) hours as needed for pain Therapy completed 01/01/2021 03/02/2021 documented as of this encounter Care Teams Hydraulic Dredge Operator Relationship Specialty Start Date End Date Wesley Em MD PCP - General 09/30/16 12/01/21 Trey Pinedo MD [address] [place] [address] [place] [address] [address] Consulting Physician Neurology 05/09/19 documented as of this encounter
--- OUTSIDE RECORDS SUMMARY | 2024-06-18 18:09 | XMS_ITS | Encounter Summary ---
Author Organization [facility] Healthcare Address [address] [place] [address] Care Team Providers Care Seconds Grader Name Role Phone Wesley Em MD Primary Care Provider [phone] Trey Pinedo MD Unavailable [phone] Reason for Visit * Reason Comments OP Infusion Here for phlebotomy, Encounter Details Date Type Department Care Team (Late st Contact Info) Description 04/20/2021 3:15 PM CDT Infusion [facility] [address] [facility] [address] [place] [address] Social History Tobacco Use Types Packs/Day Years [...] than three times a week 12/31/2020 Attends Restoration Services Not on file 12/31 Active Member [...] on file 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 Figueroa in follow up. Assessmentcompleted. His Hematocrit today : 51.8. He declined a snack or something to drink. After the donormatic machine was started and calibrated, phlebotomy was started at 15:55 in his left, lateral antecubital vein. At 16:35, phlebotomy stopped. A total of five hundred ml of whole blood had been collected. Needle was removed. Light pressure was held to site with a folded 4x4, that was secured with Coband. Patient again declined a snack or something to drink. He rested for a few minutes. His blood pressure was taken 125/66. He denied any dizziness or light headedness. He was given a copy of his AVS, and left in stable condition. documented in this encounter Plan of Treatment Not on file documented as of this encounter Visit Diagnoses Not on filedocumented in this encounter Care Teams Seconds Grader Relationship Specialty Start Date End Date Wesley Em MD PCP - General 09/30/16 12/01/21 Trey Pinedo MD [address] [facility] [place] [address] Consulting Physician Neurology 05/09/19 documented as of this encounter
--- OUTSIDE RECORDS SUMMARY | 2024-06-18 18:09 | XMS_ITS | Encounter Summary ---
Author Organization [facility] Address [address] [place] [address] Care Team Providers Care Envelope Cutter Name Role Phone Wesley Em MD Primary Care Provider [phone] Trey Pinedo MD Unavailable Encounter Details Date Type Department Care Team (Late st Contact Info) Description 04/26/2021 Telephone [facility] [address] [facility] [address] [place] [address] Wesley Em MD [address] [place] [address] [address] [place], [place] [id number] Social History Tobacco Use Types Packs/Day Years [...] than three times a week 12/31/2020 Attends Religion Services Not on file 12/31 Active Member [...] on file 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 Gender Identity Not on file Sexual Orientation Straight 01/23/2021 10 :16 PM CDT documented as of this encounter Miscellaneous Notes * Telephone Encounter - Teresita Moses MA - 04/26/2021 3:48 PM CDT Patients son Jalil aware ok per hipaa Sent to referrals * Telephone Encounter - Teresita Moses MA - 04/26/2021 3:48 PM CDT ----- Message from Wesley Em MD sent at 04/26/2021 12:29 PM CDT ----- Refer to vascular surgery for expert consultation regarding carotid artery disease * Telephone Encounter - Ganesh Calvert MA - 04/26/2021 2:11 PM CDT To referrals--if complete message didn't follow please see patient message under chart review whereJR ordered ct and vascular referral * Telephone Encounter - Ganesh Calvert MA - 04/26/2021 2:11 PM CDT ----- Message from Villa Zuniga sent at 04/26/2021 2:07 PM CDT ----- Regarding: Carotid Ultrasound Results The CT angiogram, is that what was ordered previously where he ???refused??? stating he could not lay on the table? Please order the test and refer for consultation. Thank you, Ian * Telephone Encounter - Ganesh Calvert MA - 04/26/2021 2:09 PM CDT ----- Message from Villa Zuniga sent at 04/26/2021 2:07 PM CDT ----- Regarding: Carotid Ultrasound Results The CT angiogram, is that what was ordered previously where he ???refused??? stating he could not lay on the table? Please order the test and refer for consultation. Thank you, Ian documented in this encounter Plan of Treatment Not on file documented as of this encounter Visit Diagnoses Not on filedocumented in this encounter Care Teams Envelope Cutter Relationship Specialty Start Date End Date Wesley Em MD PCP - General 09/30/16 12/01/21 Trey Pinedo MD [address] [place] [address] [facility] [place] [address] Consulting Physician Neurology 05/09/19 documented as of this encounter
--- OUTSIDE RECORDS SUMMARY | 2024-06-18 18:09 | XMS_ITS | Encounter Summary ---
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 Labs reviewed, hematocrit 51.4. Phlebotomy perform in the left ac, 500ml pulled off by machine. Pressure dressing applied to site. Patient tolerated well. Denied drink or snack. Patient monitored for 20 minutes after and vitals obtained. Vitals stable. AVS printed and reviewed with patient. Patient had no further questions at this time and left in stable condition. documented in this encounter Plan of Treatment Not on file documented as of this encounter Visit Diagnoses Diagnosis Polycythemia- Primary Polycythemia, secondary documented in this encounter Orders Nursing Count Last Ordered Date First Orde red Date ONCBCN THERAPEUTIC PHLEBOTOMY 1 03/30/2021 Appointment Requests Count Last Ordered Date Fi rst Ordered Date ONCBCN THERAPEUTIC PHLEBOTOM Y APPOINTMENT REQUEST 1 03/30/2021 documented in this encounter Care Teams Career Development Specialist Relationship Specialty Start Date End Date Wesley Em MD PCP - General 09/30/16 12/01/21 Trey Pinedo MD [address] [facility] [address] [place] [address] Consulting Physician Neurology 05/09/19 documented as of this encounter
--- OUTSIDE RECORDS SUMMARY | 2024-06-18 18:09 | XMS_ITS | Encounter Summary ---
Author Organization [facility] Address [address] [facility] [address] [place] [address] Phone Care Team Providers Care Dredge Deckhand Name Role Phone Wesley Em MD Primary Care Provider [phone] Trey Pinedo MD Unavailable [phone] Reason for Referral * MRI/CAT/PET Scan (Routine) - Closed Specialty Diagnoses / Procedures Referred By Jomar villela Referred To Contact Radiology Diagnoses Bilateral carotid artery disease (HCC) Procedures CTA Head Neck W WO Contrast Gadiel Genao MD Phone: tel: fax: [facility] [address] [place] [address] Referral ID Status Reason Start Date Expiration Date Visits Re quested Visits Authorized [id number] Closed 04/28/2021 05/28/2022 1 1 Encounter Details Date Type Department Care Team (Late st Contact Info) Description 04/28/2021 Orders Only [facility] [address] [place] [address] [place] [id number] Gadiel Genao MD [address] [facility] [id number] [place] [address] Bilateral carotid artery disease (CMS/HCC) (HCC) (Primary Dx) Social History Tobacco Use Types Packs/Day Years Used Date Smoking Tobacco: Former Cigarettes 0.5 50 1 959 2008 Smokeless Tobacco: Never Alcohol Use Standard [...] than three times a week 12/31/2020 Attends Denominational Services Not on file 12/31 Active Member [...] on file 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 Minimal atherosclerotic calcifications in the bilateral carotid bulbs without stenosis. Dictated by: Milka Cano MD The radiology attending physician has personally reviewed this study, and had reviewed and/or edited this written report and agrees with it. Electronically signed by: Nadine Soliman M.D. Narrative 05/25/2021 4:59 PM LAWN AND TREE SERVICE SPRAY SUPERVISOR EXAMINATION: Computed tomography angiography (CTA) of the [...] the bilateral cavernous segments causing up to ajja-ua-hwnbwwvz stenosis. The taimyc-qn-Ghwxma is complete. The anterior and middle cerebral [...] the bilateral cavernous segments causing up to xauw-xi-ykigrkag stenosis. The pmywod-fn-Kqutyk is complete. The anterior and middle cerebral [...] by: Nadine Soliman M.D. Gadiel Genao MD IM CT PROCEDURES Final Re sult documented in this encounter Visit Diagnoses Diagnosis Bilateral carotid artery disease (HCC)- Primary Unspecified disorders of arteries and arterioles Bilateral carotid artery disease (HCC) Unspecified disorders of arteries and arterioles documented in this encounter Care Teams Dredge Deckhand Relationship Specialty Start Date End Date Wesley Em MD PCP - General 09/30/16 12/01/21 Trey Pinedo MD [address] [place] [address] [address] [place] [address] Consulting Physician Neurology 05/09/19 documented as of this encounter
--- OUTSIDE RECORDS SUMMARY | 2024-06-18 18:09 | XMS_ITS | Encounter Summary ---
Author Organization [facility] Address [address] [place] [address] Care Team Providers Care Die Sinker Name Role Phone Wesley Em MD Primary Care Provider [phone] Trey Pinedo MD Unavailable [phone] Encounter Details Date Type Department Care Team (Late st Contact Info) Description 03/05/2021 Telephone [place] [facility] [address] [facility] [address] [place] [address] Wesley Em MD [address] [place] [address] [address] [place] [address] Social History Tobacco Use Types [...] than three times a week 12/31/2020 Attends Anabaptist Services Not on file 12/31 Active Member [...] on file 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 Gender Identity Not on file Sexual Orientation Straight 01/23/2021 10 :16 PM CDT documented as of this encounter Miscellaneous Notes * Telephone Encounter - Luz Cleary - 03/05/2021 4:27 PM CDT Orders placed the pt will get a call for the carotid dopplers and EGD * Telephone Encounter - Martha Sutton MA - 03/05/2021 3:47 PM CDT LM for Jimmy Sosa on HIPAA notifying him and message on patients machine also notifying him Sent to referrals * Telephone Encounter - Wesley Em MD - 03/05/2021 6:38 AM CDT Patient was seen yesterday please schedule carotid Dopplers also EGD when he has his colonoscopy this fall with GI diagnosis carotid artery disease history of [facility] esophagus documented in this encounter Plan of Treatment Not on file documented as of this encounter Visit Diagnoses Not on filedocumented in this encounter Care Teams Die Sinker Relationship Specialty Start Date End Date Wesley Em MD PCP - General 09/30/16 12/01/21 Trey Pinedo MD [address] [place] [address] [place] [address] Consulting Physician Neurology 05/09/19 documented as of this encounter
--- OUTSIDE RECORDS SUMMARY | 2024-06-18 18:09 | XMS_ITS | Encounter Summary ---
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); Benign prostatic hyperplasia, unspecified whether lower urinary tract symptoms present Discharge Disposition: Discharge to home or self [...] than three times a week 12/31/2020 Attends Sikh Services Not on file 12/31 Active Member [...] on file 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 Gender Identity Not on file Sexual Orientation Straight 01/23/2021 10 :16 PM CDT documented as of this encounter Discharge Disposition Disposition Code Departure Means Destination Discharge to home or self care documented in this encounter Miscellaneous Notes * Result Encounter Note - Wesley Em MD - 03/05/2021 7:44 AM CDT Okay to leave a message with abdullahi MONTANEZ lab work looks great documented in this encounter Plan of Treatment Not on file documented as of this encounter Procedures Procedure Name Priority Date/Time Associated Diagnosis Comments EGFR Routine 03/04/2021 4:00 PM CDT Essential hypertension Mixed hyperlipidemia 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) Benign prostatic hyperplasia, unspecified whether lower urinary tract symptoms present PSA DIAGNOSTIC Routine 03/04/2021 4:00 PM CDT Essential hypertension Mixed hyperlipidemia 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) Benign prostatic hyperplasia, unspecified whether lower urinary tract symptoms present HEMOGLOBIN A1C Routine 03/04/2021 4:00 PM CDT Essential hypertension Mixed hyperlipidemia 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) Benign prostatic hyperplasia, unspecified whether lower urinary tract symptoms present LIPID PANEL Routine 03/04/2021 4:00 PM CDT Essential hypertension Mixed hyperlipidemia 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) Benign prostatic hyperplasia, unspecified whether lower urinary tract symptoms present COMPREHENSIVE METABOLIC PANEL Routine 03/04/2021 4:00 PM CDT Essential hypertension Mixed hyperlipidemia 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) Benign prostatic hyperplasia, unspecified whether lower urinary tract symptoms present documented in this encounter Results * eGFR (03/04/2021 4:00 PM CDT) eGFR 54 mL/min/1.7 3 m2 [facility] ([facility]) Comment: Interpretive Data Reference Interval Normal ?>/= 90 mL/min/1.73m2 Mildly decreased* ? 60 - 89 mL/min/1.73m2 Mildly to moderately decreased ?45 - 59 mL/min/1.73m2 Moderately to severely decreased ??30 - 44 mL/min/1.73m2 Severely decreased ?15 - 29 mL/min/1.73m2 Kidney Failure ?< 15 ??mL/min/1.73m2 *Relative to young adult level Estimated glomerular filtration rate is determined by the CKD-EPI equation recommended by the National Kidney Foundation (KDIGO 2012 Clinical Practice Guideline for the Evaluation and Management of Chronic Kidney Disease. Kidney Intnl Suppl Jul 2012;3:1). The CKD-EPI equation should not be used for patients with unstable renal function and has not been validated in children and those over 70. Current interpretive data was last reviewed 2020 Blood 03/04/2021 4:00 PM CDT 03/04/2021 5:06 PM CDT us Wesley Em MD LAB BLOOD ORDERABLES Final Res ult [facility]) [address] [facility] Department [place] [address] * (ABNORMAL) Lipid panel (03/04/2021 4:00 PM CDT) Cholesterol 131 30 - 199 mg/dL [facility]) Comment: Interpretive Data Ages < or = [...] Data was last revised on 2018. Triglycerides 208(H) <=149 mg/dL [facility] ([facility]) Comment: Interpretive [...] Data was last revised on 2018. HDL 37(L) >=40 mg/dL [facility] ([facility]) Comment: Interpretive [...] was last revised on 2018. LDL, calculated 52 <=129 mg/dL [facility] ([facility]) Comment: Interpretive [...] was last revised on 2018. Non-HDL Cholesterol 94 mg/dL [facility] ([facility]) Comment: Interpretive Data [...] was last revised on 2018. Chol/HDL ratio 4 URV[facility] Yu [facility] ([facility]) Blood 03/04/2021 4:00 PM CDT 03/04/2021 5:06 PM CDT Wesley Em MD LAB BLOOD ORDERABLES Final Res ult [facility] ([facility] [address] [facility] Department [place] [address] * (ABNORMAL) Hemoglobin A1c (03/04/2021 4:00 PM CDT) Hgb A1C 6.0(H) 4.0 - 5.6 % [facility]) Estimated Average Glucose 126 mg/dL [facility] ([facility]) Comment: The ADA recommends reporting an estimated Average Glucose (eAG) with all Hemoglobin A1c results using the equation derived from a study of 507 normal and diabetic adults. ??Minority populations were underrepresented and children were not included. ?? (Diabetes Care 31:5353-9060, 2008). ??The eAG is not equivalent to a fasting glucose. Blood 03/04/2021 4:00 PM CDT 03/04/2021 5:06 PM CDT us Wesley Em MD LAB BLOOD ORDERABLES Final Res ult [facility] [place] [address] [facility] Department [place] [address] * PSA diagnostic (03/04/2021 4:00 PM CDT) [facility] PSA-Total 1.89 <=6.20 ng/mL [facility] ([facility] [place]) Comment: Interpretive Data ?AGE ? SEX ?REFERENCE INTERVAL 0 minutes-150 years ?Female ?None 0 minutes-49 years ? Male ?None ? 50-59 years ? Male ?0-3.90 ? 60-69 years ? Male ?0-5.40 ? 70-79 years ? Male ?0-6.20 ? 80-150 years ?Male ?0-6.20 Current interpretive data last revised 2018. Testing performed by: [facility], [address] [place] [address]., [id number] Blood 03/04/2021 4:00 PM CDT 03/05/2021 9:03 AM CDT us Wesley Em MD LAB BLOOD ORDERABLES Final Res ult [facility] [place] [address] [facility] Department [place] [address] * Comprehensive metabolic panel (03/04/2021 4:00 PM CDT) Sodium 139 135 - 145 mmol/L [facility] ([facility]) Potassium, pl 3.9 3.3 - 4.9 mmol/L [facility] ([facility]) Chloride 101 97 - 110 mmol/L [facility]) CO2 28 22 - 32 mmol/L [facility]) Anion gap 10 2 - 15 mmol/L [facility] ([facility]) BUN 19 8 - 25 mg/dL [facility]) Creatinine 1.29 0.80 - 1.30 mg/dL [facility]) Glucose 104 70 - 199 mg/dL [facility] ([facility] [...] interpretive data was last revised 2017. Calcium 9.1 8.5 - 10.3 mg/dL [facility]) Bilirubin, total 0.8 0.1 - 1.2 mg/dL [facility] ([facility]) Protein, pl 6.9 6.5 - 8.5 g/dL [facility] ([facility]) Albumin 4.3 3.5 - 5.0 g/dL [facility] ([facility]) Alk phos 99 40 - 130 Units/L [facility] ([facility]) ALT 18 7 - 55 Units/L [facility]) AST 16 10 - 50 Units/L [facility] ([facility]) Comment:Slightly Hemolyzed S pecimen Blood 03/04/2021 4:00 PM CDT 03/04/2021 5:06 PM CDT us Wesley Em MD LAB BLOOD ORDERABLES Final Res ult [facility] ([facility]) [address] [facility] Department [place] [address] documented in this encounter Visit Diagnoses Diagnosis Essential hypertension Unspecified essential hypertension Mixed hyperlipidemia Type 2 diabetes mellitus with hyperlipidemia (HCC) Benign prostatic hyperplasia, unspecified whether lower urinary tract symptoms present documented in this encounter Care Teams Cotton Picker Relationship Specialty Start Date End Date Wesley Em MD PCP - General 09/30/16 12/01/21 Trey Pinedo MD [address] [place] [address] [address] [place] [address] Consulting Physician Neurology 05/09/19 documented as of this encounter
--- OUTSIDE RECORDS SUMMARY | 2024-06-18 18:09 | XMS_ITS | Encounter Summary ---
Author Organization [facility] Address [address] [facility] [facility] [address] [place] [address] Care Team Providers Care Gi Tech Name Role Phone Wesley Em MD Primary Care Provider [phone] Trey Pinedo MD Unavailable [phone] Encounter Details Date Type Department Care Team (Late st Contact Info) Description 03/03/2021 Telephone [place] [facility] [address] [facility] [address] [place] [facility] [address] [place] [address] Wesley Em MD [address] [place] [address] [address] [place] [address] Social History Tobacco Use Types [...] on file 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 The hospital changed the ordermid-test because as the test was being performed patient refused contrast and then refused to finish the test. I copy and pasted the below from the CT result that is in Epic. The 'reason for study' states that they were unable to complete the test as ordered. (CTA Abdominal Aorta and Iliofemoral Runoff is a CTA AIF) EXAM DESCRIPTION: CT of the bilateral lower extremities without contrast REASON FOR STUDY: Peripheral arterial disease (PAD), prior revasc, symptomatic Feet have been turning purple for about 1 year, f/u from u/s, patient refused to finish test Pt was originally ordered as CTA Abdominal Aortal and Iliofemoral Runoff but preformed scan and then patient refused contrast and refused to finish the test * Telephone Encounter - Martha Sutton MA - 03/03/2021 12:[address] bilateral hips has already been done What should be done JR did order a CT angiogram AIF on 02/10/21 * Telephone Encounter - Wesley Em MD - 03/03/2021 7:53 AM CDT Patient is supposed to have a CT angiogram of his lower extremities with AIF diagnosis peripheral vascular disease/claudication I believe a CT scan of his hips was ordered not CT angiogram as above if the CT scan of the hips was ordered by this office cancel it and do the CT angiogram as requested by me documented in this encounter Plan of Treatment Not on file documented as of this encounter Visit Diagnoses Not on filedocumented in this encounter Care Teams Gi Tech Relationship Specialty Start Date End Date Wesley Em MD PCP - General 09/30/16 12/01/21 Trey Pinedo MD [address] [place] [address] Consulting Physician Neurology 05/09/19 documented as of this encounter
--- OUTSIDE RECORDS SUMMARY | 2024-06-18 18:09 | XMS_ITS | Encounter Summary ---
Author Organization [facility] Healthcare Address [address] [place] [address] Care Team Providers Care Stranding Machine Operator Name Role Phone Wesley Em MD Primary Care Provider [phone] Trey Pinedo MD Unavailable [phone] Reason for Visit * Reason Onset Date Comments Sleep Study results 02/26/2021 Encounter Details Date Type Department Care Team (Late st Contact Info) Description 02/26/2021 Telephone [facility] [address] [place] [address] Leandro Matamoros MD [address] [facility] [address] [address] Sleep Study results Social History Tobacco Use Types Packs/Day Years [...] have a drink containing alc ohol? Never 01/28/2021 Average Number of Drinks Not on file 021 Q3: How often do you have si x or more drinks on one occasion? Never 01/28/2021 Overall Financial Resource Strain (CARDIA) Answe r Date Recorded How hard is it for you to pa y for the very basics like food, housing, medical care, and heating? 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 Pt indicated on his paper work he does not want a CPAP. Provided, on voicemail, the doctor contact number to make a sooner appointment to discuss results. Also provided our contact number to call if he had any questions. documented in this encounter Plan of Treatment Not on file documented as of this encounter Visit Diagnoses Not on filedocumented in this encounter Care Teams Stranding Machine Operator Relationship Specialty Start Date End Date Wesley Em MD PCP - General 09/30/16 12/01/21 Trey Pinedo MD [address] [facility] [place] [address] Consulting Physician Neurology 05/09/19 documented as of this encounter
--- OUTSIDE RECORDS SUMMARY | 2024-06-18 18:09 | XMS_ITS | Encounter Summary ---
Author Organization [facility] Healthcare Address [address] [place] [address] Care Team Providers Care Leaf Fat Scraper Name Role Phone Wesley Em MD Primary Care Provider [phone] Trey Pinedo MD Unavailable [phone] Encounter Details Date Type Department Care Team (Late st Contact Info) Description 02/23/2021 2:05 PM CDT Lab [address] [address] Frances Huston NP [address] [facility] [address] SALINAS [address] [place] [address] Leandro Matamoros MD [address] [facility] [address] SALINAS [address] [place] [address] Preop testing Discharge Disposition: Discharge to home or self [...] than three times a week 12/31/2020 Attends Sikhism Services Not on file 12/31 Active Member [...] file 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 Gender Identity Not on file Sexual Orientation Straight 01/23/2021 10 :16 PM CDT documented as of this encounter Discharge Disposition Disposition Code Departure Means Destination Discharge to home or self care documented in this encounter Plan of Treatment Not on file documented as of this encounter Procedures Procedure Name Priority Date/Time Associated Diagnosis Comments COVID-19 CORONAVIRUS RNA Routine 02/23/2021 2:04 PM CDT Preop testing documented in this encounter Results * COVID-19 Coronavirus RNA Nasopharyngeal (02/23/2021 2:04 PM CDT) COVID-19 RNA Not Detected [facility] ([facility]) Comment: Interpretive Data Synonyms for this test include: PCR and NAAT . ??Testing performed by the [facility] Molecular Infectious Disease Laboratory. The 2019-Novel Coronavirus Assay (COVID-19) Real Time RT-PCR assay is for in vitro diagnostic use under FDA emergency use authorization only. A negative RT-PCR result does not preclude infection with COVID-19 and should not be used as the sole basis for treatment or other patient management decisions. ??Additional sample types have been validated according to CLIA regulations. ?? Current Interpretive Data was last revised on August 06, 2020. Testing performed by: [facility], [address] [place] [address]., [address] First COVID-19 test? No [facility] ([facility]) Comment:Testing performed by : [facility], [address] [place] [address], [address] Employeed in healthcare? Unknown [facility] ([facility]) Comment:Testing performed by : [address], [address] status? No [facility] ([facility]) Comment:Testing performed by : [facility], [address] [place] [address], [address] Group care resident? Unknown [facility] ([facility]) Comment:Testing performed by : [facility], [address], [address] Hospitalized? Unknown [facility] ([facility]) Comment:Testing performed by : [address], [address] Is patient in ICU? Unknown [facility] ([facility]) Comment:Testing performed by : [facility], [address] [place] [address], [address] Symptomatic as defined by CDC? No [facility] ([facility]) Comment:Testing performed by : [facility], [address] [place] [address], [address] Nasopharyngeal 02/23/2021 2: 04 PM CDT 02/23/2021 10:20 PM CDT Narrative [facility] ([facility]) - 02/24/2021 7:10 AM CDT What is the reason for testing?->Screening prior to scheduled procedure or surgery (batch) us Frances Huston MODEL AND MOLD MAKER PLASTER LAB MICROBIOLOGY - GENER AL ORDERABLES Final Result [facility] ([place]) 1 [facility] Department [place] [address] documented in this encounter Visit Diagnoses Diagnosis Preop testing Unspecified pre-operative examination documented in this encounter Care Teams Leaf Fat Scraper Relationship Specialty Start Date End Date Wesley Em MD PCP - General 09/30/16 12/01/21 Trey Pinedo MD [address] [place] [address] [place] [address] Consulting Physician Neurology 05/09/19 documented as of this encounter
--- OUTSIDE RECORDS SUMMARY | 2024-06-18 18:09 | XMS_ITS | Encounter Summary ---
Author Organization [facility] Healthcare Address [address] [place] [address] Care Team Providers Care Bicycle Taxi Driver Name Role Phone Wesley Em MD Primary Care Provider [phone] Trey iPnedo MD Unavailable [phone] Reason for Visit * MRI/CAT/PET Scan (Routine) - Closed Specialty Diagnoses / Procedures Referred By Contac t Referred To Contact Radiology Diagnoses Peripheral arterial disease (HCC) Procedures CT Hips Bilateral WO Contrast CTA Abdominal Aorta And Bilateral Iliofemoral Runoff Wesley Em MD [address] [place] [address] DR SALINAS [address] [place] [address] Phone: tel: fax: [address] [phone] Referral ID Status Reason Start Date Expiration Date Visits Re quested Visits Authorized [id number] Closed 02/10/2021 03/12/2022 1 1 Encounter Details Date Type Department Care Team (Latest Contact Info) Description 03/02/2021 2:47 PM CDT - 03/02/2021 11:59 PM CDT Hospital Encounter [facility] [address] [place] [address] Wesley Em MD [address] [place] [address] DR SALINAS [address] [place] [address] Peripheral arterial disease (CMS/HCC) (HCC) Discharge Disposition: Discharge to [...] on file 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 Gender Identity Not on file Sexual Orientation [...] total) by mouth daily 90 tablet 3 08/20/2019 1 documented as of this encounter Discharge Disposition Disposition Code Departure Means Destination Discharge to home or self care documented in this encounter Plan of Treatment Not on file documented as of this encounter Procedures Procedure Name Priority Date/Time Associated Diagnosis Comments CT HIPS BILATERAL WO CONTRAST Schedule Routine, Read Routine (OP Routine) 03/02/2021 4:18 PM CDT Peripheral arterial disease (CMS/HCC) (HCC) CREATININE, WHOLE BLOOD STAT 03/02/2021 3:01 PM CDT documented in this encounter Results * CT Hips Bilateral WO Contrast (03/02/2021 4:18 PM CDT) Anatomical Region Laterality Modality Hip Bilateral Computed Tomogra phy 03/03/2021 8:53 AM CDT Narrative 03/03/2021 9:00 AM CDT EXAM DESCRIPTION: ?? CT of the bilateral lower extremities without contrast REASON FOR STUDY: ?? Peripheral arterial disease (PAD), prior revasc, symptomatic ??Feet have been turning purple for about 1 year, f/u from u/s, patient refused to finish test ??Pt was originally ordered as CTA Abdominal Aortal and Iliofemoral Runoff but preformed scan and then patient refused contrast and refused to finish the test ?? TECHNIQUE: ??CT scan of the ??bilateral lower extremities was performed without intravenous contrast. ??Automated exposure control was used as a dose optimization technique for this examination. COMPARISON: ?? None available FINDINGS: Assessment somewhat limited 4 diagnosis as these relatively thick images are designed to be compared to postcontrast thinner section arterial phase images and to demonstrate the degree of calcification of the vasculature. ??There is mild-moderate atherosclerosis of the vasculature within the bilateral thighs. ?? Moderate calcification of the vasculature below the knee is noted, most pronounced within the posterior tibialis artery. ??Fat containing periumbilical hernia is noted. ??There is diverticulosis of the sigmoid colon. ??No definitive diverticulitis is seen. 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 ??No discrete soft tissue mass is seen within the lower legs. ??No fracture is identified. IMPRESSION: ?? 1. ??Noncontrast examination only was performed as the patient refused IV contrast. 2. ??Mild-moderate calcific atherosclerosis of the vasculature of the bilateral thighs. 3. ??Moderate calcific atherosclerosis of the bilateral lower extremities, somewhat more pronounced within the posterior tibial arteries. 4. ??Diverticulosis, without diverticulitis. THIS IS AN ELECTRONICALLY VERIFIED FINAL REPORT 03/03/2021 9:00 AM - Electronically signed by Ryder Mcfarland M.D. AT: AT D: ??03/03/2021 9:00 AM T: ??03/03/2021 9:00 AM Report ID: [id number] Reading Location: ??[id number] Procedure Note Ryder Mcfarland MD - 03/03/2021 EXAM DESCRIPTION: CT of the bilateral lower extremities withoutcontrast REASON FOR STUDY: Peripheral arterial disease (PAD), prior revasc, symptomatic Feet have been turning purple for about 1 year, f/u from u/s, patient refused to finish test Pt was originally ordered as CTA Abdominal Aortal and Iliofemoral Runoff but preformed scan and then patient refused contrast and refused to finish the test TECHNIQUE: CT scan of the bilateral lower extremities was performedwithout intravenous contrast. Automated exposure control was used as a dose optimization technique for this examination. COMPARISON: None available FINDINGS: Assessment somewhat limited 4 diagnosis as these relatively thick imagesare designed to be compared to postcontrast thinner section arterial phaseimages and to demonstrate the degree of calcification of the vasculature. Thereis mild-moderate atherosclerosis of the vasculature within the bilateralthighs. Moderate calcification of the vasculature below the knee is noted, most pronounced within the posterior tibialis artery. Fat containingperiumbilical hernia is noted. There is diverticulosis of the sigmoid colon. Nodefinitive diverticulitis is seen. 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 No fracture is identified. IMPRESSION: 1. Noncontrast examination only was performed as the patient refused IV contrast. 2. Mild-moderate calcific atherosclerosis of the vasculature of thebilateral thighs. 3. Moderate calcific atherosclerosis of the bilateral lower extremities, somewhat more pronounced within the posterior tibial arteries. 4. Diverticulosis, without diverticulitis. THIS IS AN ELECTRONICALLY VERIFIED FINAL REPORT 03/03/2021 9:00 AM - Electronically signed by Ryder Mcfarland M.D. AT: AT Report ID: [id number] Reading Location: [id number] Wesley Em MD [facility] CT PROCEDURES Final Result * (ABNORMAL) Creatinine, whole blood (03/02/2021 3:01 PM CDT) Creatinine, bld 1.40(H) 0.60 - 1.30 mg/dL [facility] ([facility]) Blood 03/02/2021 3:01 PM CDT 03/02/2021 3:03 PM CDT Wesley Em MD LAB BLOOD ORDERABLES Final Res ult [facility] ([place]) 1 [facility] Department [place] [address] documented in this encounter Visit Diagnoses Diagnosis Peripheral arterial disease (HCC) Unspecified peripheral vascular disease documented in this encounter Orders Medications Ordered That Reg ht Not Have Been Administered Count Last Ordered Date First Ordered Date ioversoL (OPTIRAY 350) syrin ge syringe 125 mL 1 03/02/2021 documented in this encounter Care Teams Bicycle Taxi Driver Relationship Specialty Start Date End Date Wesley Em MD PCP - General 09/30/16 12/01/21 Trey Pinedo MD [address] [place] [address] [address] [place] [address] Consulting Physician Neurology 05/09/19 documented as of this encounter
--- OUTSIDE RECORDS SUMMARY | 2024-06-18 18:09 | XMS_ITS | Encounter Summary ---
Author Organization [facility] Medical Group Address [address] [place] [address] Care Team Providers Care Safety Counselor Name Role Phone Wesley Em MD Primary Care Provider [phone] Trey Pinedo MD Unavailable [phone] Encounter Details Date Type Department Care Team (Late st Contact Info) Description 03/04/2021 Orders Only [facility] [address] [facility] [address] [place] [address] Wesley Em MD [address] [place] [address] [address] [place] [address] History of colon polyps (Primary Dx); PAD (peripheral artery disease) (CMS/HCC) (HCC); Essential hypertension; Mixed hyperlipidemia; 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); Benign prostatic hyperplasia, unspecified whether lower urinary tract symptoms present; Mayo's esophagus with dysplasia Social History Tobacco Use Types Packs/Day Years [...] than three times a week 12/31/2020 Attends Roman [employer] Services Not on file 12/31 Active [...] on file 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 Gender Identity Not on file Sexual Orientation Straight 01/23/2021 10 :16 PM CDT documented as of this encounter Miscellaneous Notes * Addendum Note - Key Melara - 03/04/2021 3:29 PM CDTAddended by: KEY MELARA on: 03/05/2021 04:37 PM Modules accepted: Orders documented in this encounter Plan of Treatment Not on file documented as of this encounter Results * Comprehensive metabolic panel (03/04/2021 4:00 PM [...] MD LAB BLOOD ORDERABLES Final Res ult [facility] Department [place] [address] * (ABNORMAL) Hemoglobin A1c (03/04/2021 4:00 PM CDT) Pathologist [facility] Hgb A1C 6.0(H) 4.0 - 5.6 % [facility] ([place]) Estimated Average Glucose 126 mg/dL [facility] ([place]) Comment: The ADA recommends reporting an estimated Average Glucose (eAG) with all Hemoglobin A1c results using the equation derived from a study of 507 normal and diabetic adults. ??Minority populations were underrepresented and children were not included. ?? (Diabetes Care 31:8994-4739, 2008). ??The eAG is not equivalent to a fasting glucose. Blood 03/04/2021 4:00 PM CDT 03/04/2021 5:06 PM CDT Wesley Em MD LAB BLOOD ORDERABLES Final Res ult [facility] ([place]) 1 [facility] Department [place] [address] * (ABNORMAL) Lipid panel (03/04/2021 4:00 PM CDT) [facility] Cholesterol 131 30 - 199 mg/dL [facility] ([place]) Comment: Interpretive Data Ages < or = [...] 2018. LDL, calculated 52 <=129 mg/dL [facility] ([facility]) Comment: Interpretive Data Ages < [...] 2018. Non-HDL Cholesterol 94 mg/dL [facility] ([place]) Comment: Interpretive Data Ages < or = [...] last revised on 2018. Chol/HDL ratio 4 [facility] ([place]) Blood 03/04/2021 4:00 PM CDT 03/04/2021 5:06 PM CDT us Wesley Em MD LAB BLOOD ORDERABLES Final Res ult [facility] ([place]) 1 [facility] Department of Laboratories [place], [place] [address] * PSA diagnostic (03/04/2021 4:00 PM CDT) PSA-Total 1.89 <=6.20 ng/mL [facility] ([place]) Comment: Interpretive Data ?AGE ? SEX ?REFERENCE INTERVAL 0 minutes-150 years ?Female ?None 0 minutes-49 years ? Male ?None ? 50-59 years ? Male ?0-3.90 ? 60-69 years ? Male ?0-5.40 ? 70-79 years ? Male ?0-6.20 ? 80-150 years ?Male ?0-6.20 Current interpretive data last revised 2018. Testing performed by: [facility], [address] [place] [address]., [address] Blood 03/04/2021 4:00 PM CDT 03/05/2021 9:03 AM CDT us Wesley Em MD LAB BLOOD ORDERABLES Final Res ult [facility] ([place]) [address] [facility] Department [place] [address] documented in this encounter Visit Diagnoses Diagnosis History of colon polyps- Primary PAD (peripheral artery disease) (HCC) Unspecified peripheral vascular disease Essential hypertension Unspecified essential hypertension Mixed hyperlipidemia Type 2 diabetes mellitus with hyperlipidemia (HCC) Benign prostatic hyperplasia, unspecified whether lower urinary tract symptoms present Mayo's esophagus with dysplasia documented in this encounter Care Teams Safety Counselor Relationship Specialty Start Date End Date Wesley Em MD PCP - General 09/30/16 12/01/21 Trey Pinedo MD [address] [place] [address] [place] [address] Consulting Physician Neurology 05/09/19 documented as of this encounter
--- OUTSIDE RECORDS SUMMARY | 2024-06-18 18:09 | XMS_ITS | Encounter Summary ---
Author Organization [facility] Medical Group Address [address] [place] [address] Care Team Providers Care Lpn Care Manager Name Role Phone Wesley Em MD Primary Care Provider [phone] Trey Pinedo MD Unavailable [phone] Encounter Details Date Type Department Care Team (Late st Contact Info) Description 03/05/2021 Telephone [facility] [address] [facility] [address] [place] [address] Wesley Em MD [address] [place] [address] [address] [place] [address] Social History Tobacco Use Types [...] than three times a week 12/31/2020 Attends Hindu Services Not on file 12/31 Active Member [...] on file 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 Gender Identity Not on file Sexual Orientation Straight 01/23/2021 10 :16 PM CDT documented as of this encounter Miscellaneous Notes * Telephone Encounter - Marycarmen Jiang MA - 03/05/2021 9:28 AM CDT Deonte aware * Telephone Encounter - Marycarmen Jiang MA - 03/05/2021 9:28 AM CDT ----- Message from Wesley Em MD sent at 03/05/2021 7:44 AM CDT ----- Okay to leave a message with son DEONTE lab work looks great documented in this encounter Plan of Treatment Not on file documented as of this encounter Visit Diagnoses Not on filedocumented in this encounter Care Teams Lpn Care Manager Relationship Specialty Start Date End Date Wesley Em MD PCP - General 09/30/16 12/01/21 Trey Pinedo MD [address] [place] [address] [address] SALINAS [address] [place] [address] Consulting Physician Neurology 05/09/19 documented as of this encounter
--- OUTSIDE RECORDS SUMMARY | 2024-06-18 18:09 | XMS_ITS | Encounter Summary ---
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 Gender Identity Not on file Sexual Orientation Straight 01/23/2021 10 :16 PM CDT documented as of this encounter Plan of Treatment Not on file documented as of this encounter Procedures Procedure Name Priority Date/Time Associated Diagnosis Comments DIFFERENTIAL AUTO STAT 04/20/2021 2:3 5 PM CDT Polycythemia CBC WITH AUTO DIFFERENTIAL STAT 04/20/2021 2:35 PM CDT Polycythemia documented in this encounter Results * Differential, auto (04/20/2021 2:35 PM CDT) Neutrophil abs 4.2 1.7 - 6.5 [...] 0.1 K/cumm [facility] ([facility]) Neutrophil pct 63.8 % [facility] ([facility]) Comment: Interpretive [...] was last revised on 2017. Lymphocyte pct 20.8 % [facility] ([facility]) Comment: Interpretive Data Percent cell count reference ranges are not reported, since discordance with absolute values may lead to misinterpretation of CBC data. Current Interpretive Data was last revised on 2017. Monocyte pct 9.6 % [facility] ([facility]) Comment: Interpretive Data Percent cell count reference ranges are not reported, since discordance with absolute values may lead to misinterpretation of CBC data. Current Interpretive Data was last revised on 2017. Eosinophil pct 3.5 % [facility] [...] Data was last revised on 2017. Blood 04/20/2021 2:35 PM CDT 04/20/2021 2:57 PM CDT us Chintan Figueroa MD LAB BLOOD ORDERABLES Final Re sult [facility] ([place]) 1 [facility] Department [place] [address] * (ABNORMAL) CBC with auto differential (04/20/2021 2:35 PM CDT) WBC 6.6 3.8 - 9.9 K/cumm [facility] ([place]) Hgb 18.1(H) 13.0 - 17.5 g/dL [facility] ([place]) Hct 51.8(H) 38.9 - 50.3 % [facility] ([place]) Plt 162 150 - 400 K/cumm [facility] ([facility]) MPV 11.2 9.1 - 12.3 fL [facility] ([place]) RBC 5.48 4.30 - 5.80 M/cumm [facility] ([facility]) MCV 94.5 81.3 - 96.4 fL [facility] ([place]) MCH 33.0 27.1 - 33.3 pg [facility] ([place]) MCHC 34.9 32.3 - 35.7 g/dL [facility] ([place]) RDW CV 11.8 11.1 - 14.9 % [facility] ([place]) RDW SD 41.0 35.7 - 48.1 fL [facility] ([facility]) NRBC abs 0.00 0.00 - 0.01 K/cumm [facility] ([facility]) Blood 04/20/2021 2:35 PM CDT 04/20/2021 2:57 PM CDT Chintan Figueroa MD LAB BLOOD ORDERABLES Final Re sult [facility] ([place]) [address] [facility] Department [place] [address] documented in this encounter Visit Diagnoses Diagnosis Polycythemia Polycythemia, secondary documented in this encounter Care Teams Advertising Account Manager Relationship Specialty Start Date End Date Wesley Em MD PCP - General 09/30/16 12/01/21 Trey Pinedo MD [address] [place] [address] [place] [address] Consulting Physician Neurology 05/09/19 documented as of this encounter
--- OUTSIDE RECORDS SUMMARY | 2024-06-18 18:09 | XMS_ITS | Encounter Summary ---
Author Organization [facility] Healthcare Address [address] [place] [address] Care Team Providers Care Want Ad Supervisor Name Role Phone Wesley Em MD Primary Care Provider [phone] Trey Pinedo MD Unavailable [phone] Reason for Referral * Sleep Medicine (Routine) - Closed Specialty Diagnoses / Procedures Referred By Jomar villela Referred To Contact Diagnoses Hypersomnia Procedures PSG-Sleep Provider Use Only Leandro Matamoros MD [address] [place] [address] [address] [place] [address] Phone: tel: fax: [address] [phone] Referral ID Status Reason Start Date Expiration Date Visits Re quested Visits Authorized [id number] Closed 01/28/2021 02/27/2022 1 1 Reason for Visit * Sleep Medicine (Routine) - Closed Specialty Diagnoses / Procedures Referred By Jomar villela Referred To Contact Diagnoses Hypersomnia Procedures PSG-Sleep Provider Use Only Leandro Matamoros MD [address] [place] [address] [address] SALINAS [address] [place] [address] Phone: tel: fax: [address] [phone] Referral ID Status Reason Start Date Expiration Date Visits Re quested Visits Authorized [id number] Closed 01/28/2021 02/27/2022 1 1 Encounter Details Date Type Department Care Team (Latest Contact Info) Description 02/24/2021 7:32 PM CDT - 02/24/2021 11:59 PM CDT Hospital Encounter [facility] [address] [place] [address] Hypersomnia Discharge Disposition: Discharge to home or self [...] on file 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 Gender Identity Not on file Sexual Orientation [...] TIMES DAILY 180 tablet 3 07/14/2020 2 oxyCODONE-acetam inophen (PERCOCET) 5-325 mg per tabletIndication s:Pain Take 1 tablet by mouth every 6 (six) hours as needed for pain 20 tablet 01/01/2021 1 polyethylene glycol (MIRALAX) 17 gram packetIndication s:constipation Take 1 packet (17 g total) by mouth daily 30 packet 12/28/2020 1 potassium citrate ER (UROCIT-K) 10 mEq (1,080 [...] encounter Miscellaneous Notes * Addendum Note - Leandro Matamoros MD - 02/24/2021 8:00 PM CDTEncounter addended by: Leandro Matamoros MD on: 02/25/2021 12:53 PM Actions taken: Charge Capture section accepted documented in this encounter Plan of Treatment Not on file documented as of this encounter Procedures Procedure Name Priority Date/Time Associated Diagnosis Comments PSG (COMPLEX) Routine 02/24/2021 7:32 PM CDT Hypersomnia documented in this encounter Results * PSG-Sleep Provider Use Only (02/24/2021 7:32 PM CDT) us Leandro Matamoros MD SLEEP CENTER ORDERABLES F inal Result Performing Organization Address City/State/RUST Co de Phone Number [facility] SLEEP [facility]IC[facility] [address] documented in this encounter Visit Diagnoses Diagnosis Hypersomnia Hypersomnia, unspecified documented in this encounter Care Teams Want Ad Supervisor Relationship Specialty Start Date End Date Wesley Em MD PCP - General 09/30/16 12/01/21 Trey Pinedo MD [address] [place] [address] [address] [place] [address] Consulting Physician Neurology 05/09/19 documented as of this encounter
--- OUTSIDE RECORDS SUMMARY | 2024-06-18 18:09 | XMS_ITS | Encounter Summary ---
Author Organization [facility] Healthcare Address [address] [place] [address] Care Team Providers Care Vault Cashier Name Role Phone Wesley Em MD Primary Care Provider [phone] Trey Pinedo MD Unavailable [phone] Reason for Referral * Diagnostic Imaging (Routine) - Closed Specialty Diagnoses / Procedures Referred By Jomar villela Referred To Contact Diagnoses Carotid artery disease (HCC) Other cerebral infarction (HCC) Procedures [facility] Carotids Wesley Em MD [address] [place] [address] [address] [place] [address] Phone: tel: fax: [address] [phone] Referral ID Status Reason Start Date Expiration Date Visits Re quested Visits Authorized [id number] Closed 03/05/2021 04/04/2022 1 1 Reason for Visit * Diagnostic Imaging (Routine) - Closed Specialty Diagnoses / Procedures Referred By Jomar villela Referred To Contact Diagnoses Carotid artery disease (HCC) Other cerebral infarction (HCC) Procedures [facility] Carotids Wesley Em MD [address] [place] [address] DR [address] [place] [address] Phone: tel: fax: [address] [phone] Referral ID Status Reason Start Date Expiration Date Visits Re quested Visits Authorized [id number] Closed 03/05/2021 04/04/2022 1 1 Encounter Details Date Type Department Care Team (Latest Contact Info) Description 04/22/2021 3:12 PM CDT - 04/22/2021 11:59 PM CDT Hospital Encounter [facility] [address] [facility] [place] [address] Wesley Em MD [address] [facility] [place] [address] Carotid artery disease (CMS/HCC) (HCC); Other cerebral infarction (HCC) Discharge Disposition: Discharge to home or self care Social History Tobacco Use Types Packs/Day Years Used Date Smoking Tobacco: Former Cigarettes 0.5 50 1 2008 Smokeless Tobacco: Never Alcohol Use Standard [...] on file 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 Gender Identity Not on file Sexual [...] Encounter Note - Wesley Em MD - 04/22/2021 11:59 PM CDT Refer to vascular surgery for expert consultation regarding carotid artery disease documented in this encounter Plan of Treatment Not on file documented as of this encounter Procedures Procedure Name Priority Date/Time Associated Diagnosis Comments US CAROTIDS DUPLEX BILATERAL Schedule Routine, Read Routine (OP Routine) 04/22/2021 3:49 PM CDT Carotid artery disease (CMS/HCC) (HCC) Other cerebral infarction (HCC) documented in this encounter Results * Vl US Carotids (04/22/2021 3:49 PM CDT) Anatomical Region Laterality Modality Vascular Bilateral Ultrasound 04/22/2021 5:09 PM CDT Addenda Addendum by Kike Bach Jr., MD on 04/23/2021 9:38 AM CDT ADDENDUM: ??This addendum report supersedes the original report dated 04/22/2021. Copying Machine Mechanic (Bere) at Dr. Em's office is sending the report as high priority to Dr. Medina, covering for Dr. Em. THIS IS AN ELECTRONICALLY VERIFIED FINAL REPORT 04/23/2021 9:38 AM - Electronically signed by Kike Bach M.D. CH: ALFREDA D: ??04/23/2021 9:38 AM T: ??04/23/2021 9:38 AM Report ID: [id number] Reading Location: ??[id number] Narrative 04/22/2021 5:15 PM CDT EXAM DESCRIPTION: ?? US CAROTIDS DUPLEX BILATERAL REASON FOR STUDY: ?? Other cerebral infarction, for follow-up of left frontal lobe infarction and right thalamic and caudate lacunar infarctions from 05/08/2019. TECHNIQUE: ??Dunn scale, color Doppler and spectral Doppler imaging were performed. ??Velocity criteria are extrapolated from diameter as defined by the Society of Radiologists in Ultrasound Consensus Conference. All velocity measurements are in cm/sec. COMPARISON: ??MRI brain 05/08/2019. ??Duplex carotid ultrasound 05/08/2019. FINDINGS: Right: Mild intimal thickening and plaque are seen. Distal CCA Peak Systolic Velocity: ??46 Distal CCA End Diastolic Velocity: ??7 Peak ICA Systolic Velocity: ??33 ICA End Diastolic Velocity: ??6 Peak ICA/CCA Systolic Ratio: ??0.73 Right Vertebral Artery: ?? Antegrade direction of flow. Left: Wtjb-[id number] intimal thickening and plaque are seen. Distal CCA Peak Systolic Velocity: 48 Distal CCA End Diastolic Velocity: 10 No flow is seen within the left internal carotid artery. Peak ICA/CCA Systolic Ratio: Not applicable Left Vertebral Artery: ?? Antegrade direction of flow. IMPRESSION: ?? 1. ??No flow of the left internal carotid artery most likely occluded, of uncertain chronicity but new from 05/08/2019. ??Further assessment could be made with a CT angiogram if needed. 2. ??Velocities correspond to a ??less than 50percent diameter stenosis of the right ICA. 3. ?? Antegrade direction of flow of the bilateral vertebral arteries. REFERENCE: ??Consensus Panel Dunn-Scale and Doppler US Criteria for Diagnosis of ICA Stenosis. No stenosis: ICA PSV <125*, 0 percent plaque, ICA/CCA PSV Ratio <2.0, ICA EDV <40*. <50 percent stenosis: ICA PSV <125*, <50 percent plaque, ICA/CCA PSV Ratio <2.0, ICA EDV <40*. 50-69 percent stenosis: ICA PSV 125-230*, >=50 percent plaque, ICA/CCA PSV Ratio 2.0-4.0, ICA EDV 40-100*. >=70 percent but less than near occlusion >230, >=50 percent plaque, ICA/CAA PSV Ratio >4.0, ICA EDV >100*. *cm/sec Plaque estimate (diameter reduction) with dunn-scale and color Doppler US. RSNA 2002 THIS IS AN ELECTRONICALLY VERIFIED FINAL REPORT 04/22/2021 5:15 PM - Electronically signed by Kike Bach M.D. CH: ALFREDA D: ??04/22/2021 5:15 PM T: ??04/22/2021 5:15 PM Report ID: [id number] Reading Location: ??[id number] Procedure Note Kike Bach Jr., MD - 04/22/2021 EXAM DESCRIPTION: US CAROTIDS DUPLEX BILATERAL REASON FOR STUDY: Other cerebral infarction, for follow-up of leftfrontal lobe infarction and right thalamic and caudate lacunar infarctions from 05/08/2019. TECHNIQUE: Dunn scale, color Doppler and spectral Doppler imaging were performed. Velocity criteria are extrapolated from diameter as defined bythe Society of Radiologists in Ultrasound Consensus Conference. All velocity measurements are in cm/sec. COMPARISON: MRI brain 05/08/2019. Duplex carotid ultrasound 05/08/2019. FINDINGS: Right: Mild intimal thickening and plaque are seen. Distal CCA Peak Systolic Velocity: 46 Distal CCA End Diastolic Velocity: 7 Peak ICA Systolic Velocity: 33 ICA End Diastolic Velocity: 6 Peak ICA/CCA Systolic Ratio: 0.73 Right Vertebral Artery: Antegrade direction of flow. Left: Uftq-pj-zqjzzvqb intimal thickening and plaque are seen. Distal CCA Peak Systolic Velocity: 48 Distal CCA End Diastolic Velocity: 10 No flow is seen within the left internal carotid artery. Peak ICA/CCA Systolic Ratio: Not applicable Left Vertebral Artery: Antegrade direction of flow. IMPRESSION: 1. No flow of the left internal carotid artery most likely occluded, of uncertain chronicity but new from 05/08/2019. Further assessment could be made with a CT angiogram if needed. 2. Velocities correspond to a less than 50percent diameter stenosis ofthe right ICA. 3. Antegrade direction of flow of the bilateral vertebral arteries. REFERENCE: Consensus Panel Dunn-Scale and Doppler US Criteria forDiagnosis of ICA Stenosis. No stenosis: ICA PSV <125*, 0 percent plaque, ICA/CCA PSV Ratio <2.0, ICAEDV <40*. <50 percent stenosis: ICA PSV <125*, <50 percent plaque, ICA/CCA PSV Ratio <2.0, ICA EDV <40*. 50-69 percent stenosis: ICA PSV 125-230*, >=50 percent plaque, ICA/CCA PSV Ratio 2.0-4.0, ICA EDV 40-100*. >=70 percent but less than near occlusion >230, >=50 percent plaque,ICA/CAA PSV Ratio >4.0, ICA EDV >100*. *cm/sec Plaque estimate (diameter reduction) with dunn-scale and color DopplerUS. RSNA 2002 THIS IS AN ELECTRONICALLY VERIFIED FINAL REPORT 04/22/2021 5:15 PM - Electronically signed by Kike Bach M.D. CH: Report ID: [id number] Reading Location: [id number] Wesley Em MD [facility] PROCEDURES Edited Resul t - Final documented in this encounter Visit Diagnoses Diagnosis Carotid artery disease (HCC) Unspecified disorders of arteries and arterioles Other cerebral infarction (HCC) documented in this encounter Care Teams Vault Cashier Relationship Specialty Start Date End Date Wesley Em MD PCP - General 09/30/16 12/01/21 Trey Pinedo MD [address] [facility] [address] [place] [address] Consulting Physician Neurology 05/09/19 documented as of this encounter
--- OUTSIDE RECORDS SUMMARY | 2024-06-18 18:09 | XMS_ITS | Encounter Summary ---
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 Gender Identity Not on file Sexual Orientation Straight 01/23/2021 10 :16 PM CDT documented as of this encounter Last Filed Vital Signs Vital Sign Reading Time Taken Comments Blood Pressure 147/81 03/30/2021 2:44 PM CDT Pulse 76 03/30/2021 2:44 PM CDT Temperature 36.6 ??C (97.8 ??F) 03/30/2021 2:44 PM CD T Respiratory Rate 20 03/30/2021 2:44 PM CDT Oxygen Saturation 94% 03/30/2021 2:44 PM CDT Inhaled Oxygen Concentration - - Weight 88.9 kg (195 lb 14.4 oz) 03/30/2021 2:44 PM CDT Height - - Body Mass Index 28.93 03/04/2021 2:51 PM CDT documented in this encounter Plan of Treatment Not on file documented as of this encounter Procedures Procedure Name Priority Date/Time Associated Diagnosis Comments DIFFERENTIAL AUTO STAT 03/30/2021 2:4 0 PM CDT Polycythemia CBC WITH AUTO DIFFERENTIAL STAT 03/30/2021 2:40 PM CDT Polycythemia documented in this encounter Results * Differential, auto (03/30/2021 2:40 PM CDT) Neutrophil abs 4.2 1.7 - [...] 0.1 K/cumm [facility] ([facility]) Neutrophil pct 70.1 % [facility] ([facility]) Comment: Interpretive [...] was last revised on 2017. Lymphocyte pct 16.2 % [facility] ([facility]) Comment: Interpretive Data Percent cell count reference ranges are not reported, since discordance with absolute values may lead to misinterpretation of CBC data. Current Interpretive Data was last revised on 2017. Monocyte pct 9.3 % [facility] ([facility]) Comment: Interpretive Data [...] Data was last revised on 2017. Blood 03/30/2021 2:40 PM CDT 03/30/2021 2:42 PM CDT Chintan Figueroa MD LAB BLOOD ORDERABLES Final Re sult [facility] ([facility]) [address] [facility] Department [place] [address] * (ABNORMAL) CBC with auto differential (03/30/2021 2:40 PM CDT) WBC 5.9 3.8 - 9.9 K/cumm [facility] ([facility]) Hgb 18.8(H) 13.0 - 17.5 g/dL [facility] ([facility]) Hct 51.4(H) 38.9 - 50.3 % [facility] ([facility]) Plt 150 150 - 400 K/cumm [facility] ([facility]) MPV 10.4 9.1 - 12.3 fL [facility] ([facility]) RBC 5.53 4.30 - 5.80 M/cumm [facility] ([facility]) MCV 92.9 81.3 - 96.4 fL [facility] ([facility]) MCH 34.0(H) 27.1 - 33.3 pg [facility] ([facility]) MCHC 36.6(H) 32.3 - 35.7 g/dL [facility] ([facility]) RDW CV 12.9 11.1 - 14.9 % [facility] ([facility]) RDW SD 43.0 35.7 - 48.1 fL [facility] ([facility]) NRBC abs Not Measured 0.00 - 0.01 K/cumm [facility] ([facility]) Blood 03/30/2021 2:40 PM CDT 03/30/2021 2:42 PM CDT Chintna Figueroa MD LAB BLOOD ORDERABLES Final Re sult [facility] ([facility]) [address] [facility] Department [place] [address] documented in this encounter Visit Diagnoses Diagnosis Polycythemia Polycythemia, secondary documented in this encounter Orders Appointment Requests Count Last Ordered Date Fi rst Ordered Date ONCBCN LAB APPOINTMENT 1 03/30/2021 documented in this encounter Care Teams Supervisor Quality Control Relationship Specialty Start Date End Date Wesley Em MD PCP - General 09/30/16 12/01/21 Trey Pinedo MD [address] [facility] [address] [place] [address] Consulting Physician Neurology 05/09/19 documented as of this encounter
--- OUTSIDE RECORDS SUMMARY | 2024-06-18 18:09 | XMS_ITS | Encounter Summary ---
Author Organization [facility] Address [address] [place] [address] Phone Care Team Providers Care Fare Register Repairer Name Role Phone Wesley Em MD Primary Care Provider [phone] Trey Pinedo MD Unavailable [phone] Encounter Details Date Type Department Care Team (Late st Contact Info) Description 04/28/2021 Orders Only [facility] Surgery [address] 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 Gender Identity Not on file Sexual Orientation Straight 01/23/2021 10 :16 PM CDT documented as of this encounter Plan of Treatment Not on file documented as of this encounter Visit Diagnoses Diagnosis Bilateral carotid artery disease (HCC)- Primary Unspecified disorders of arteries and arterioles documented in this encounter Care Teams Fare Register Repairer Relationship Specialty Start Date End Date Wesley Em MD PCP - General 09/30/16 12/01/21 Trey Pinedo MD [address] [place] [address] [place] [address] Consulting Physician Neurology 05/09/19 documented as of this encounter
--- OUTSIDE RECORDS SUMMARY | 2024-06-18 18:09 | XMS_ITS | Encounter Summary ---
Author Organization [facility] Address [address] [facility] [address] [place] [address] Care Team Providers Care Cleater Name Role Phone Wesley Em MD Primary Care Provider [phone] Trey Pinedo MD Unavailable [phone] Encounter Details Date Type Department Care Team (Late st Contact Info) Description 04/23/2021 Telephone [facility] [address] [facility] [address] [place] [address] Wesley Em MD [address] [place] [address] [address] [place], [place] [id number] Social History Tobacco Use Types Packs/Day Years [...] than three times a week 12/31/2020 Attends [employer] Not on file 12/31 Active Member [...] on file 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 That dept will contactpatient to schedule. * Telephone Encounter - Ganesh Calvert MA - 04/27/2021 7:22 AM CDT referrals * Telephone Encounter - Wesley Em MD - 04/26/2021 4:53 PM CDT Just refer to vascular surgery patient has chronic low back pain he cannot tolerate laying on a hard surface such as a CT or MRI scanner at least not in the past * Telephone Encounter - Ganesh Calvert MA - 04/26/2021 3:20 PM CDT jr * Telephone Encounter - Luz Cleary - 04/26/2021 3:17 PM CDT So we are referring to vascular. Are we still ordering the CTA? If so CTA of what and dx * Telephone Encounter - Ganesh Calvert MA - 04/26/2021 2:23 PM CDT Referrals--this is a 2nd task on the same patient but direction for referral might be clearer on this. * Telephone Encounter - Wesley Em MD - 04/26/2021 12:22 PM CDT Refer patient to vascular surgery diagnosis carotid artery disease * Telephone Encounter - Martha [place] MA - 04/23/2021 9:51 AM CDT Hold for JR * Telephone Encounter - Edvin Medina MD - 04/23/2021 9:40 AM CDT Ok to forward to Dr Em. (Patient already on high dose atorvastatin, asa, plavix and per epic, cannot lay on CT table long enough for scans so will wait on Ct angio. No surgical intervention recommended for occluded carotidsand patient currently asymptomatic per his last visit.) * Telephone Encounter - Barbara Musa MA - 04/23/2021 9:36 AM CDT bm * Telephone Encounter - Dayanara [place] - 04/23/2021 9:24 AM CDT JR pt - Dr Isreal frederick/Clinical Radiologist had his congressional assistant to call and make sure that Dr Manav ruelas on-call looks at this patients carotid ultrasound results RAMONE. documented in this encounter Plan of Treatment Not on file documented as of this encounter Visit Diagnoses Not on filedocumented in this encounter Care Teams Cleater Relationship Specialty Start Date End Date Wesley Em MD PCP - General 09/30/16 12/01/21 Trey Pinedo MD [address] [place] [address] [place] [address] Consulting Physician Neurology 05/09/19 documented as of this encounter
--- OUTSIDE RECORDS SUMMARY | 2024-06-18 18:09 | XMS_ITS | Encounter Summary ---
Author Organization 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
--- OUTSIDE RECORDS SUMMARY | 2024-06-18 18:09 | XMS_ITS | Encounter Summary ---
Author Organization [facility] Address [address] [place] [address] Phone Care Team Providers Care Glaciologist Name Role Phone Wesley Em MD Primary Care Provider [phone] Trey Pinedo MD Unavailable [phone] Encounter Details Date Type Department Care Team (Late st Contact Info) Description 04/20/2021 3:00 PM CDT Office Visit [facility] Oncology [address] [place] [address] Medical Office [facility] [address] [phone] Chintan Figueroa MD [address] [place] [address] Polycythemia Social History Tobacco Use Types Packs/Day [...] than three times a week 12/31/2020 Attends Rastafari Services Not on file 12/31 Active Member [...] Average Number of Drinks Not on file Frequency of Binge Drinking Not on file [...] on file 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 Gender Identity Not on file Sexual Orientation Straight 01/23/2021 10 :16 PM CDT documented as of this encounter Last Filed Vital Signs Vital Sign Reading Time Taken Comments Blood Pressure 152/65 04/20/2021 3:09 PM CDT Pulse 60 04/20/2021 3:09 PM CDT Temperature 36.1 ??C (97 ??F) 04/20/2021 3:09 PM CDT Respiratory Rate 20 04/20/2021 3:09 PM CDT Oxygen Saturation 98% 04/20/2021 3:09 PM CDT Inhaled Oxygen Concentration - - Weight 86.1 kg (189 lb 12.8 oz) 04/20/2021 3:09 PM CDT Height 177.8 cm (5' 10 ) 04/20/2021 3:09 PM CDT Body Mass Index 27.23 04/20/2021 3:09 PM CDT documented in this encounter Progress Notes * Chintan Figueroa MD - 04/20/2021 3:00 PM CDT Hematology/Oncology Consult Visit Date: 04/20/2021 Primary Care Physician:Wesley Em MD Requesting Provider: Chintan Figueroa MD [place] 75 y.o. male Chief Complaint: The patient was referred from my opinion and recommendations regarding further evaluation and management of his erythrocytosis. INTERVAL HISTORY:04/20/2021-The patient feels relatively well. He has been getting 1 phlebotomy permonth without any complications Assessment: 1. 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 2. His erythropoietin levels higher than what 1 would expect with a hemoglobin of 18+ g per dL. 3. Benign left renal cyst Plan: 1. I will continue him on monthly phlebotomies to bring his hematocrit down to approximately 45%. 2. I will hold phlebotomies if his hematocrit is less than 45%. 3. I will see him back in 3 months with CBC at that time. 04/20/2021 Chintan Figueroa MD Switchboard Operator Assistant Internal Medicine-Medical Oncology [facility] in [place] - Physicians in [address] [address] Office: After Hours and Weekends: Card Seller completed using M*Modal fluency direct speaking software, therefore, accounting coordinator variances may occur. HEMATOLOGY HISTORY: 01/26/2021 --The [...] tells me that he did see a safety specialist here in [place], Dr. Hoskins, several years ago who recommended [...] taking testosterone in any form nor any [id number] androgen type erb or supplement. His significant [...] 2012 Heart stents: [facility] Prior to Admission medications Medication Sig Start [...] Types: Cigarettes Quit date: 2009 Years since quittin.8 ??? Smokeless tobacco: Never Used Vaping Use [...] Living Expenses: Not very hard Food Insecurity: ??? Worried About Running Out of Food in the Last Year: Not on file ??? Ran Out of Food in the Last Year: Not on file Transportation Needs: No Transportation Needs ??? Lack of Transportation (Medical): No ??? Lack of Transportation (Non-Medical): No Physical Activity: ??? Days of Exercise per Week: Not on file ??? Minutes of Exercise per Session: Not on file Stress: ??? Feeling of Stress : Not on file Social Connections: Unknown ??? Frequency of Communication with Friends and Family: More than three times a week ??? Frequency of Social Gatherings with Friends and Family: More than three times a week ??? Attends Rastafari Services: Not on file ??? Active Member of Clubs or Organizations: Not on file ??? Attends Club or Organization Meetings: Not on file ??? Marital Status: Intimate Partner Violence: ??? Fear of Current or Ex-Partner: Not on file ??? Emotionally Abused: Not on file ??? Physically Abused: Not on file ??? Sexually Abused: Not on file Family History Problem Relation Age of Onset [...] patient is not nervous/anxious. Objective Vitals BP 152/65 (BP Location: Right arm) Pulse 60 Temp 36.1 ??C (97 ??F) (Skin) Resp 20 Ht 177.8 cm (5' 10 ) Wt 86.1 kg (189 lb 12.8 oz) SpO2 98% BMI 27.23 kg/m?? Physical Exam Vitals reviewed. Constitutional: General: [...] hour(s)) CBC with auto differential Collection Time: 04/20/21 2:35 PM Result Value Ref Range WBC 6.6 3.8 - 9.9 K/cumm Hgb 18.1 (H) 13.0 - 17.5 g/dL Hct 51.8 (H) 38.9 - 50.3 % Plt 162 150 - 400 K/cumm MPV 11.2 9.1 - 12.3 fL RBC 5.48 4.30 - 5.80 M/cumm MCV 94.5 81.3 - 96.4 fL MCH 33.0 27.1 - 33.3 pg MCHC 34.9 32.3 - 35.7 g/dL RDW CV 11.8 11.1 - 14.9 % RDW SD 41.0 35.7 - 48.1 fL NRBC abs 0.00 0.00 - 0.01 K/cumm Differential, auto Collection Time: 04/20/21 2:35 PM Result Value Ref Range Neutrophil abs 4.2 1.7 - 6.5 K/cumm Imm gran abs 0.0 0.0 - 0.1 K/cumm Lymphocyte abs 1.4 0.8 - 3.3 K/cumm Monocyte abs 0.6 0.2 - 0.8 K/cumm Eosinophil abs 0.2 0.0 - 0.5 K/cumm Basophil abs 0.1 0.0 - 0.1 K/cumm Neutrophil pct 63.8 % Imm gran pct 0.3 % Lymphocyte pct 20.8 % Monocyte pct 9.6 % Eosinophil pct 3.5 % Basophil pct 2.0 % Patient Active Problem List Diagnosis Date Noted ??? Obstructive sleep apnea 03/02/2021 ??? Hypersomnia 01/28/2021 ??? 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 Type 2 diabetes mellitus with hyperlipidemia (CMS/HCC) ([facility]) 10/25/2019 ??? Cerebrovascular arteriosclerosis 05/20/2019 ??? Bilateral carotid artery disease (CMS/HCC) ([facility]) 05/20/2019 ??? TIA (transient ischemic attack) 05/08/2019 ??? History of noncompliance with medical treatment 05/08/2019 ??? History of colon polyps 11/17/2018 ??? Bladder stones 2017 ??? 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 Chronic GERD 2017 ??? Polycythemia 07/07/2017 ??? Sensorineural hearing loss, bilateral 05/05/2017 ??? Benign prostatic hyperplasia with lower urinary tract symptoms 12/26/2016 ??? Essential hypertension 12/26/2016 ??? Kidney stones 12/26/2016 ??? Hyperlipidemia 11/16/2013 documented in this encounter Miscellaneous Notes * Addendum Note - Alla Huerta CLT - 04/20/2021 3:00 PM CDTAddended by: ALLA HUERTA on: 05/20/2021 01:51 PM Modules accepted: Orders ETRY TEACHER documented in this encounter Plan of Treatment Not on file documented as of this encounter Results * (ABNORMAL) CBC with auto differential (2021 [...] 2:25 PM CDT 2021 2:28 PM CDT Chintan Figueroa MD LAB BLOOD ORDERABLES Final Re sult Performing Organization Address City/[facility]/ZIP Co de Phone Number [facility] ([facility]) [address] [facility] [place] [address] * (ABNORMAL) Iron profile w/ IBC (2021 2:25 PM CDT) Iron 31(L) 50 - 150 mcg/dL [facility] ([facility]) TIBC 283 250 - 400 mcg/dL [facility] ([facility]) Transferrin saturation 11(L) 20 - 50 % [facility] ([facility]) Blood 2021 2:25 PM CDT 2021 3:03 PM CDT Chintan Figueroa MD LAB BLOOD ORDERABLES Final Re sult [facility] ([facility]) 1 [facility] [place] [address] * CBC with auto differential (09/14/2021 3:00 [...] Final Re sult [facility] ([facility]) [facility] [place] [address] * (ABNORMAL) CBC with auto differential (08/17/2021 2:40 PM GEOMETRY TEACHER) Pathologist [facility] WBC 6.5 3.8 - 9.9 K/cumm [facility] [...] [facility] ([facility]) Blood 08/17/2021 2:40 PM GEOMETRY TEACHER 08/17/2021 2:40 PM GEOMETRY TEACHER us Chintan Figueroa MD LAB BLOOD ORDERABLES Final Re sult [facility] ([facility]) [facility] Department of Laboratories [place], [place] [id number] * CBC with auto differential (07/20/2021 2:55 PM GEOMETRY TEACHER) WBC 5.0 3.8 - 9.9 K/cumm [facility] [...] [facility]) Blood 07/20/2021 2:55 PM GEOMETRY TEACHER 07/20/2021 3:00 PM GEOMETRY TEACHER Chintan Figueroa MD LAB BLOOD ORDERABLES Final Re sult [facility] ([facility]) 1 [facility] Department of Laboratories [place] [id number] * CBC with auto differential (06/22/2021 2:05 PM GEOMETRY TEACHER) WBC 6.9 3.8 - 9.9 K/cumm [facility] [...] [facility]) Blood 06/22/2021 2:05 PM GEOMETRY TEACHER 06/22/2021 2:10 PM GEOMETRY TEACHER Chintan Figueroa MD LAB BLOOD ORDERABLES Final Re sult [facility] ([facility]) 1 [facility] [place] [address] * CBC with auto differential (05/20/2021 1:55 PM GEOMETRY TEACHER) WBC 6.6 3.8 - 9.9 K/cumm [facility] [...] [facility]) Blood 05/20/2021 1:55 PM GEOMETRY TEACHER 05/20/2021 1:59 PM GEOMETRY TEACHER Chintan Figueroa MD LAB BLOOD ORDERABLES Final Re sult [facility] ([facility]) [facility] [place] [address] documented in this encounter Visit Diagnoses Diagnosis Polycythemia Polycythemia, secondary documented in this encounter Orders Appointment Requests Count Last Ordered Date Fi rst Ordered Date ONCBCN CLINIC APPOINTMENT REQUEST 2 022 04/20/2021 ONCBCN INFUSION APPT REQUEST 6 2021 05/20/2021 ONCBCN LAB APPOINTMENT 6 10/20/202105/20 documented in this encounter Care Teams Glaciologist Relationship Specialty Start Date End Date Wesley Em MD PCP - General 09/30/16 12/01/21 Trey Pinedo MD [address] [facility] [address] [place] [address] [address] Consulting Physician Neurology 05/09/19 documented as of this encounter
--- OUTSIDE RECORDS SUMMARY | 2024-06-18 18:09 | XMS_ITS | Encounter Summary ---
Author Organization [facility] Address [address] [facility] [address] [facility] [address] [place] [address] Care Team Providers Care Biodiesel Product Manager Name Role Phone Wesley Em MD Primary Care Provider [phone] Trey Pinedo MD Unavailable [phone] Reason for Referral * Diagnostic Imaging (Routine) - Closed Specialty Diagnoses / Procedures Referred By Contac t Referred To Contact Diagnoses Carotid artery disease (HCC) Other cerebral infarction (HCC) Procedures Vl US Carotids Wesley Em MD [address] [place] [address] DR [address]IN[address] [place] [address] Phone: tel: fax: [address] [address] Referral ID Status Reason Start Date Expiration Date Visits Re quested Visits Authorized [id number] Closed 03/05/2021 04/04/2022 1 1 Encounter Details Date Type Department Care Team (Late st Contact Info) Description 03/05/2021 Orders Only [facility] [address] [address] Wesley Em MD [address] [place] [address] DR SALINAS [address] [place] [address] Carotid artery disease (CMS/HCC) (HCC) (Primary Dx); Other cerebral infarction (HCC) Social History Tobacco Use Types Packs/Day [...] than three times a week 12/31/2020 Attends Zoroastrianism Services Not on file 12/31 Active Member [...] on file 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 Pack Operator (Bere) at Dr. Em's office is sending the report as high priority to Dr. Medina, covering for Dr. Em. THIS IS AN ELECTRONICALLY VERIFIED FINAL REPORT 04/23/2021 9:38 AM - Electronically signed by Kike Bach M.D. CH: ALFREDA D: ??04/23/2021 9:38 AM T: ??04/23/2021 9:38 AM Report ID: [id number] [place] Location: ??[id number] Narrative 04/22/2021 5:15 PM CDT EXAM DESCRIPTION: [...] Artery: ?? Antegrade direction of flow. Left: [id number]-kb-[id number] intimal thickening and plaque are seen. Distal [...] PM T: ??04/22/2021 5:15 PM Report ID: [id number] [facility] Location: ??[id number] Procedure Note Kike Bach Jr., MD - [...] Vertebral Artery: Antegrade direction of flow. Left: Euxg-aa-bepmbcpk intimal thickening and plaque are seen. Distal [...] signed by Kike Bach M.D. CH: ALFREDA Report ID: [id number] [facility] Location: [id number] Wesley Em MD [facility] US PROCEDURES Edited Resul t - Final documented in this encounter Visit Diagnoses Diagnosis Carotid artery disease (HCC)- Primary Unspecified disorders of arteries and arterioles Other cerebral infarction (HCC) Carotid artery disease (HCC) Unspecified disorders of arteries and arterioles Other cerebral infarction (HCC) documented in this encounter Care Teams Biodiesel Product Manager Relationship Specialty Start Date End Date Wesley Em MD PCP - General 09/30/16 12/01/21 Trey Pinedo MD [address] [facility] [address] [place] [address] Consulting Physician Neurology 05/09/19 documented as of this encounter
--- OUTSIDE RECORDS SUMMARY | 2024-06-18 18:10 | XMS_ITS | Encounter Summary ---
Author Organization [facility] Healthcare Address [address] [place] [address] Care Team Providers Care Environmental Scientists Name Role Phone Wesley Em MD Primary Care Provider [phone] Trey Pinedo MD Unavailable [phone] Reason for Visit * Reason Comments Phlebotomy Encounter Details Date Type Department Care Team (Late st Contact Info) Description 02/23/2021 3:00 PM CDT Infusion [facility] [address] [facility] [address] [place] [address] Polycythemia (Primary Dx) Social History Tobacco Use [...] than three times a week 12/31/2020 Attends Mu-Ism Services Not on file 12/31 Active Member [...] on file 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 Figueroa for a phlebotomy. The pts vital signs are stable and he has no questions or concerns. His hct was taken and it is 51.3, a phlebotomy was performed in the left ac with the machine and 500mL of blood was taken from the pt, he tolerated it well. Herefused any water and states he feels fine , the pt was observed and then discharged with his paperwork, he left in stable condition. documented in this encounter Plan of Treatment Not on file documented as of this encounter Visit Diagnoses Diagnosis Polycythemia- Primary Polycythemia, secondary documented in this encounter Orders Nursing Count Last Ordered Date First Orde red Date ONCBCN THERAPEUTIC PHLEBOTOMY 1 02/23/2021 Appointment Requests Count Last Ordered Date Fi rst Ordered Date ONCBCN THERAPEUTIC PHLEBOTOM Y APPOINTMENT REQUEST 1 02/23/2021 documented in this encounter Care Teams Environmental Scientists Relationship Specialty Start Date End Date Wesley Em MD PCP - General 09/30/16 12/01/21 Trey Pinedo MD [address] [facility] [address] [place] [address] [address] Consulting Physician Neurology 05/09/19 documented as of this encounter
--- OUTSIDE RECORDS SUMMARY | 2024-06-18 18:10 | XMS_ITS | Encounter Summary ---
Author Organization [facility] Medical Group Address [address] [facility] [address] [place] [address] Care Team Providers Care Supervisor Dry Cleaning Name Role Phone Wesley Em MD Primary Care Provider [phone] Trey Pinedo MD Unavailable [phone] Encounter Details Date Type Department Care Team (Late st Contact Info) Description 02/15/2021 Orders Only [facility] Testing Site - [facility]. 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 Class: Internal Referral Ordering User: Jyoti Nam NP Auth Provider: JYOTI NAM Provider: yJoti Nam NP Diagnosis: Encounter for preprocedural laboratory examination Department: [facility] Sched Instruct: ?? Comment: ?? Order Specific Questions Question Answer Comment Testing types: Pre-procedure ?? Date of Px/chemo/treatment/placement/transfer 03/25/2021 ?? Testing site patient will be sent to: [facility] ?? Date testing requested: 03/22/2021 ?? Testing: COVID-19 RNA ?? Is this the first COVID-19 test for this patient? Does the patient currently work in a healthcare facility with direct patient contact? Unknown ?? Is the patient a resident of a congregate care or living setting? Unknown ?? Is the patient ? No ?? Please select the performing region: [facility] Medical Group documented in this encounter Plan of Treatment Not on file documented as of this encounter Visit Diagnoses Diagnosis Pre-operative laboratory examination- Primary Pre-procedural laboratory examination documented in this encounter Care Teams Supervisor Dry Cleaning Relationship Specialty Start Date End Date Wesley Em MD PCP - General 09/30/16 12/01/21 Trey Pinedo MD [address] [facility] [place] [address] Consulting Physician Neurology 05/09/19 documented as of this encounter
--- OUTSIDE RECORDS SUMMARY | 2024-06-18 18:10 | XMS_ITS | Encounter Summary ---
Author Organization [facility] Healthcare Address [address] [place] [address] Care Team Providers Care Operator Specialist Communications Name Role Phone Wesley Em MD Primary Care Provider [phone] Trey Pinedo MD Unavailable Encounter Details Date Type Department Care Team (Late st Contact Info) Description 02/23/2021 2:30 PM CDT Lab [facility] Physicians [address] [facility] [address] [place] [address] Polycythemia Social History Tobacco Use Types Packs/Day [...] than three times a week 12/31/2020 Attends Yazidism Services Not on file 12/31 Active Member [...] on file 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 Gender Identity Not on file Sexual Orientation Straight 01/23/2021 10 :16 PM CDT documented as of this encounter Last Filed Vital Signs Vital Sign [place] Time Taken Comments Blood Pressure - - Pulse 55 02/23/2021 2:24 PM CDT Temperature 35.9 ??C (96.6 ??F) 02/23/2021 2:24 PM CD T Respiratory Rate 20 02/23/2021 2:24 PM CDT Oxygen Saturation 97% 02/23/2021 2:24 PM CDT Inhaled Oxygen Concentration - - Weight 89.3 kg (196 lb 14.4 oz) 02/23/2021 2:24 PM CDT Height - - Body Mass Index 29.08 01/28/2021 3:22 PM CDT documented in this encounter Plan of Treatment Not on file documented as of this encounter Procedures Procedure Name Priority Date/Time Associated Diagnosis Comments DIFFERENTIAL AUTO STAT 02/23/2021 2:3 5 PM CDT Polycythemia CBC WITH AUTO DIFFERENTIAL STAT 02/23/2021 2:35 PM CDT Polycythemia documented in this encounter Results * Differential, auto (02/23/2021 2:35 PM CDT) Neutrophil abs 4.7 1.7 - 6.5 K/cumm [...] 0.1 K/cumm [facility]) Neutrophil pct 70.2 % [facility]) Comment: Interpretive [...] was last revised on 2017. Lymphocyte pct 18.5 % [facility] ([facility]) Comment: Interpretive Data Percent cell count reference ranges are not reported, since discordance with absolute values may lead to misinterpretation of CBC data. Current Interpretive Data was last revised on 2017. Monocyte pct 7.9 % [facility] ([facility]) Comment: Interpretive Data Percent cell count reference ranges are not reported, since discordance with absolute values may lead to misinterpretation of CBC data. Current Interpretive Data was last revised on 2017. Eosinophil pct 2.2 % [facility] [...] Data was last revised on 2017. Blood 02/23/2021 2:35 PM CDT 02/23/2021 2:36 PM CDT Chintan Figueroa MD LAB BLOOD ORDERABLES Final Re sult [facility] ([facility] [address] [facility] [place] [id number] * (ABNORMAL) CBC with auto differential (02/23/2021 2:35 PM CDT) WBC 6.7 3.8 - 9.9 K/cumm [facility] ([facility]) Hgb 18.8(H) 13.0 - 17.5 g/dL [facility] ([facility]) Hct 51.3(H) 38.9 - 50.3 % [facility] ([facility]) Plt 143(L) 150 - 400 K/cumm [facility] ([facility]) MPV 10.4 9.1 - 12.3 fL [facility]) RBC 5.51 4.30 - 5.80 M/cumm [facility] ([facility]) MCV 93.1 81.3 - 96.4 fL [facility]) MCH 34.1(H) 27.1 - 33.3 pg [facility]) MCHC 36.6(H) 32.3 - 35.7 g/dL [facility]) RDW CV 13.1 11.1 - 14.9 % [facility]) RDW SD 43.9 35.7 - 48.1 fL [facility]) NRBC abs Not Measured 0.00 - 0.01 K/cumm [facility]) Blood 02/23/2021 2:35 PM CDT 02/23/2021 2:36 PM CDT Chintan Figueroa MD LAB BLOOD ORDERABLES Final Re sult Performing Organization Address City/[facility]/ZIP Co de Phone Number [facility] ([facility]) [address] [facility] [place] [address] documented in this encounter Visit Diagnoses Diagnosis Polycythemia Polycythemia, secondary documented in this encounter Orders Appointment Requests Count Last Ordered Date Fi rst Ordered Date ONCBCN LAB APPOINTMENT 1 02/23/2021 documented in this encounter Care Teams Operator Specialist Communications Relationship Specialty Start Date End Date Wesley Em MD PCP - General 09/30/16 12/01/21 Trey Pinedo MD [address] [facility] [place] [address] Consulting Physician Neurology 05/09/19 documented as of this encounter
--- OUTSIDE RECORDS SUMMARY | 2024-06-18 18:10 | XMS_ITS | Encounter Summary ---
Author Organization [facility] Medical [facility] Address [address] [facility] [address] [place] [address] Care Team Providers Care Public Area Supervisor Name Role Phone Wesley Em MD Primary Care Provider [phone] Trey Pinedo MD Unavailable [phone] Encounter Details Date Type Department Care Team (Late st Contact Info) Description 02/22/[address] 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 Gender Identity Not on file Sexual Orientation Straight 01/23/2021 10 :16 PM CDT documented as of this encounter Progress Notes * Frances Huston NP - 02/22/2021 1:50 PM CDT covid Cosigned by Leandro Matamoros MD at 02/22/2021 4:22 PM CDT documented in this encounter Plan of Treatment Not on file documented as of this encounter Visit Diagnoses Diagnosis Encounter for preprocedural laboratory examination- Primary documented in this encounter Care Teams Public Area Supervisor Relationship Specialty Start Date End Date Wesley Em MD PCP - General 09/30/16 12/01/21 Trey Pinedo MD [address] [place] [address] [place] [address] Consulting Physician Neurology 05/09/19 documented as of this encounter
--- OUTSIDE RECORDS SUMMARY | 2024-06-18 18:10 | XMS_ITS | Encounter Summary ---
Author Organization [facility] Address [address] [place] [address] Care Team Providers Care Freight Shipping Agent Name Role Phone Wesley Em MD Primary Care Provider [phone] Trey Pinedo MD Unavailable [phone] Encounter Details Date Type Department Care Team (Late st Contact Info) Description 02/22/2021 Orders Only [facility] Testing Site - [facility]. 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 Date of Px/chemo/treatment/placement/transfer 02/23/2021 ?? Testing site patient will be sent to: [facility] [place] ?? Date testing requested: 02/24/2021 ?? Testing: COVID-19 RNA ?? Does the patient currently work in a healthcare facility with direct patient contact? Unknown ?? Is the patient a resident of a congregate care or living setting? Unknown ?? Is the patient ? No ?? Please select the performing region: [facility] documented in this encounter Plan of Treatment Not on file documented as of this encounter Results * COVID-19 Coronavirus RNA Nasopharyngeal (02/23/2021 2:04 PM CDT) COVID-19 RNA Not Detected [facility] ([facility]) Comment: Interpretive Data Synonyms for this test include: PCR and NAAT . ??Testing performed by the [facility]. The Novel Coronavirus Assay (COVID-19) Real Time RT-PCR assay [...] on August 06, 2020. Testing performed by: [address] [address] First COVID-19 test? No [facility] ([facility]) Comment:Testing performed by : [address], [address] Employeed in healthcare? Unknown [facility] ([facility]) Comment:Testing performed by : [address], [address] status? No [facility] ([facility]) Comment:Testing performed by : [address], [address] Group care resident? Unknown [facility] ([facility]) Comment:Testing performed by : [facility], [address] [place] [address], [address] Hospitalized? Unknown [facility] ([facility]) Comment:Testing performed by : [address], [address] Is patient in ICU? Unknown [facility] ([facility]) Comment:Testing performed by : [address], [address] Symptomatic as defined by CDC? No [facility] ([facility]) Comment:Testing performed by : [facility], [address] [facility], [place]., [address] Nasopharyngeal 02/23/2021 2: 04 PM CDT 02/23/2021 10:20 PM CDT Narrative [facility] ([facility]) - 02/24/2021 7:10 AM CDT What is the reason for testing?->Screening prior to scheduled procedure or surgery (batch) Frances Huston ATM SERVICER LAB MICROBIOLOGY - GENER AL ORDERABLES Final Result [facility] ([facility]ET[facility]) 1 [facility] [place] [address] documented in this encounter Visit Diagnoses Diagnosis Preop testing- Primary Unspecified pre-operative examination Preop testing Unspecified pre-operative examination documented in this encounter Care Teams Freight Shipping Agent Relationship Specialty Start Date End Date Wesley Em MD PCP - General 09/30/16 12/01/21 Trey Pinedo MD [address] [place] [address] [place] [address] Consulting Physician Neurology 05/09/19 documented as of this encounter
--- OUTSIDE RECORDS SUMMARY | 2024-06-18 18:11 | XMS_ITS | Encounter Summary ---
Author Organization [facility] Address [address] [place] [address] Phone Care Team Providers Care Operators Teacher Name Role Phone Wesley Em MD Primary Care Provider Trey Pinedo MD Unavailable [phone] Dorinda ChavezW Unavailable [phone] Encounter Details Date Type Department Care Team (Late st Contact Info) Description 01/06/[address] 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 Gender Identity Not on file Sexual Orientation Straight 01/23/2021 10 :16 PM CDT documented as of this encounter Miscellaneous Notes * Telephone Encounter - Josefa Santana CLT - 01/06/2021 12:17 PM CDT NO VOICE MAIL documented in this encounter Plan of Treatment Not on file documented as of this encounter Visit Diagnoses Not on filedocumented in this encounter Care Teams Operators Teacher Relationship Specialty Start Date End Date Wesley Em MD PCP - General 09/30/16 12/01/21 Trey Pinedo MD [address] [facility] [place] [address] Consulting Physician Neurology 05/09/19 Dorinda Chavez, [address] [place] [address] Entertainment & Media Correspondent 12/30/20 01/26/21 documented as of this encounter
--- OUTSIDE RECORDS SUMMARY | 2024-06-18 18:11 | XMS_ITS | Encounter Summary ---
Author Organization [facility] Address [address] [facility] [address] [place] [address] Care Team Providers Care Coffee Supervisor Name Role Phone Wesley Em MD Primary Care Provider [phone] Trey Pinedo MD Unavailable [phone] Reason for Visit * Reason Comments Hypertension Diabetes Encounter Details Date Type Department Care Team (Late st Contact Info) Description 08/27/2020 9:00 AM GLASS MELT OPERATOR Office Visit [facility] [address] [facility] [address] [place] [address] Wesley Em MD [address] [place] [address] [address] [place] [address] Type 2 diabetes mellitus with hyperlipidemia (CMS/HCC) (Primary Dx); Class 1 obesity with body mass index (BMI) of 30.0 to 30.9 in adult, unspecified obesity type, unspecified whether serious comorbidity present; Essential hypertension; Mixed hyperlipidemia; Encounter for screening for lung cancer Social History Tobacco Use Types Packs/Day Years Used Date Smoking Tobacco: Former Cigarettes 0.1 50 1 959 - 2009 Smokeless Tobacco: Never Alcohol Use Standard Drinks/Week Comments No 0 (1 standard drink = 0.6 oz pur e alcohol) PHQ-2 Answer Date Recorded PHQ-2 Total Score (If total score is 3 or more points, staff should administer the PHQ-9) 0 08/27/2020 Sex and Gender Information Value Date Recorded Sex Assigned at Not on file 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 GLASS MELT OPERATOR Gender Identity Not on file Sexual Orientation Straight 01/23/2021 10 :16 PM CDT documented as of this encounter Last Filed Vital Signs Vital Sign Reading Time Taken Comments Blood Pressure 148/100 08/27/2020 9:11 AM GLASS MELT OPERATOR Pulse 60 08/27/2020 9:11 AM GLASS MELT OPERATOR Temperature - - Respiratory Rate 20 08/27/2020 9:11 AM GLASS MELT OPERATOR Oxygen Saturation - - Inhaled Oxygen Concentration - - Weight 98 kg (216 lb) 08/27/2020 9:11 AM GLASS MELT OPERATOR Height 177.8 cm (5' 10 ) 08/27/2020 9:11 AM GLASS MELT OPERATOR Body Mass Index 30.99 08/27/2020 9:11 AM GLASS MELT OPERATOR documented in this encounter Ordered Prescriptions Prescription Sig Dispense Quantity Refills Last Filled Start Date End Date cloNIDine (CATAPRES) 0.1 mg tablet Take 1 tablet (0.1 mg total) by mouth 3 (three) times a day 270 tablet 3 08/27/2020 10/07/2021 documented in this encounter Progress Notes * Wesley Em MD - 08/27/2020 9:00 AM CST Subjective/Objective Patient ID: Villa Zuniga is a 74 y.o. male. Chief Complaint Hypertension and Diabetes Lung cancer screening history of tobacco abuse HPI Patient quit smoking 11 years ago he states he is doing fine he is overdue for his [facility] dose CT scan at [facility] he states he will get done this spring The patient did not get his lab work done he states he get done today so he is going to run over get the blood work done regarding his blood pressure diabetes he is take his medication compliantly His blood pressure is not very well controlled he states he does use salt occasionally bone going to increase some his medications today he is having no chest pain orthopnea PND Patient states he does have issues with snoring waking up tired un refreshed sleep sleeps easily throughout the day may fall asleep at the wheel occasionally Patient also history of history of polycythemia need additional workup if this is persistent including sleep study in 6 minutes walk test point function tests EPO study Review of Systems Vitals: 08/27/20 0911 BP: 148/100 BP Location: Left arm Patient Position: Sitting Pulse: 60 Resp: 20 Weight: 98 kg (216 lb) Height: 177.8 cm (5' 10 ) Physical Exam Feet: Right Foot: Monofilament exam: normal. Left Foot: Monofilament exam: normal. Blood pressure confirmed lungs are clear cardiovascular regular abdomen soft nontender extremities no edema Assessment/Plan Diagnoses and all orders for this visit: Type 2 diabetes mellitus with hyperlipidemia (CMS/HCC) (Primary) Get the lab work done exercise more lose weight will call with results of the lab work Class 1 obesity with body mass index (BMI) of 30.0 to 30.9 in adult, unspecified obesity type, unspecified whether serious comorbidity present He understands he has remains obese BMI is over 30 daily walking caloric restriction recommended Essential hypertension Poor control increase clonidine to 3 times daily start monitoring at home call for elevations [id number] Mixed hyperlipidemia Continue statin therapy currently on 80 without muscle pain muscle weakness Encounter for screening for lung cancer Low-dose screening CT scan recommended [facility] he is overdue for this he states he has pushed off Other orders - cloNIDine (CATAPRES) 0.1 mg tablet; Take 1 tablet (0.1 mg total) by mouth 3 (three) times a day Side effects, risks, interactions reviewed with patient. Indications for testing discussed. Any further problems to contact us. He was told what to look out for and verbalized understanding. The patient was given the opportunity to have all questions answered today and was in agreement with the plan of care. S MELT OPERATOR S MELT OPERATOR documented in this encounter Plan of Treatment Not on file documented as of this encounter Visit Diagnoses Diagnosis Type 2 diabetes mellitus with hyperlipidemia (HCC)- Primary Class 1 obesity with body mass index (BMI) of 30.0 to 30.9 in adult, unspecified obesity type, unspecified whether serious comorbidity present Essential hypertension Unspecified essential hypertension Mixed hyperlipidemia Encounter for screening for lung cancer documented in this encounter Discontinued Medications Medication Sig Discontinue Reason Start Date End Da te cloNIDine (CATAPRES) 0.1 mg tablet Take 1 tablet (0.1 mg total) by mouth 2 (two) times a day 02/26/2020 08/27/2020 documented as of this encounter Care Teams Coffee Supervisor Relationship Specialty Start Date End Date Wesley Em MD PCP - General 09/30/16 12/01/21 Trey Pinedo MD [address] [place] [address] [address] [place] [address] Consulting Physician Neurology 05/09/19 documented as of this encounter
--- OUTSIDE RECORDS SUMMARY | 2024-06-18 18:11 | XMS_ITS | Encounter Summary ---
Author Organization [facility] Address [address] [facility] [address] [place] [address] Care Team Providers Care Utility Mechanic Supervisor Name Role Phone Wesley Em MD Primary Care Provider [phone] Trey Pinedo MD Unavailable [phone] Encounter Details Date Type Department Care Team (Late st Contact Info) Description 02/15/[address] [facility] Pul[facility]ology [facility] [address] [address] Jasmin Nam, DESIGN MAKER [address] [facility] [address] [address] Encounter for preprocedural laboratory examination [...] on file 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 LPTA Gender Identity Not on file Sexual Orientation Straight 01/23/2021 10 :16 PM CDT documented as of this encounter Progress Notes * Jasmin Nam NP - 02/15/2021 9:09 AM CDT Sleep study COVID order Cosigned by Leandro Matamoros MD at 02/15/2021 10:11 AM CDT documented in this encounter Plan of Treatment Not on file documented as of this encounter Visit Diagnoses Diagnosis Encounter for preprocedural laboratory examination- Primary documented in this encounter Care Teams Utility Mechanic Supervisor Relationship Specialty Start Date End Date Wesley Em MD PCP - General 09/30/16 12/01/21 Trey Pinedo MD [address] [facility] [place] [address] Consulting Physician Neurology 05/09/19 documented as of this encounter
--- OUTSIDE RECORDS SUMMARY | 2024-06-18 18:11 | XMS_ITS | Encounter Summary ---
Author Organization [facility] Address [address] [facility] [address] [place] [address] Care Team Providers Care Fruit Harvester Machine Operator Name Role Phone Wesley Em MD Primary Care Provider [phone] Trey Pinedo MD Unavailable [phone] Encounter Details Date Type Department Care Team (Late st Contact Info) Description 10/28/2019 Orders Only [facility] 2 [facility] [place] [address] [place] [address] Wesley Em MD [address] [place] [address] [address] [place] [address] Mayo's esophagus with dysplasia (Primary Dx) Social History Tobacco Use Types Packs/Day Years Used Date Smoking Tobacco: Former Cigarettes 0.1 50 1 339 - 2009 Smokeless Tobacco: Never Alcohol Use Standard Drinks/Week Comments No 0 (1 standard drink = 0.6 oz pur e alcohol) PHQ-2 Answer Date Recorded PHQ-2 Score 0 02/22/2019 Sex and Gender Information Value Date Recorded Sex Assigned at Not on file 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 BASS MECHANISM MAKER Gender Identity Not on file Sexual Orientation Straight 01/23/2021 10 :16 PM CDT documented as of this encounter Plan of Treatment Not on file documented as of this encounter Visit Diagnoses Diagnosis Mayo's esophagus with dysplasia- Primary documented in this encounter Care Teams Fruit Harvester Machine Operator Relationship Specialty Start Date End Date Wesley Em MD PCP - General 09/30/16 12/01/21 Trey Pinedo MD [address] [facility] [place] [address] Consulting Physician Neurology 05/09/19 documented as of this encounter
--- OUTSIDE RECORDS SUMMARY | 2024-06-18 18:11 | XMS_ITS | Encounter Summary ---
Author Organization [facility] Address [address] [facility] [address] [place] [address] Care Team Providers Care Vending Mechanic Name Role Phone Wesley Em MD Primary Care Provider [phone] Trey Pinedo MD Unavailable [phone] Encounter Details Date Type Department Care Team (Late st Contact Info) Description 09/09/2020 Orders Only [facility] 2 [facility] [address] [place] [address] Wesley Em MD [address] [place] [address] [address] [place] [address] Cigarette smoker (Primary Dx) Social History Tobacco Use Types Packs/Day Years Used Date Smoking Tobacco: Former Cigarettes 0.1 50 1 409 - 2009 Smokeless Tobacco: Never Alcohol Use Standard Drinks/Week Comments No 0 (1 standard drink = 0.6 oz pur e alcohol) PHQ-2 Answer Date Recorded PHQ-2 Total Score (If total score is 3 or more points, staff should administer the PHQ-9) 0 08/27/2020 Sex and Gender Information Value Date Recorded Sex Assigned at Not on file 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
--- OUTSIDE RECORDS SUMMARY | 2024-06-18 18:11 | XMS_ITS | Encounter Summary ---
Author Organization [facility] Address [address] [facility] [address] [place] [address] Care Team Providers Care Sheet Tester Name Role Phone Wesley Em MD Primary Care Provider [phone] Trey Pinedo MD Unavailable [phone] Dorinda Chavez [facility] Unavailable [phone] Encounter Details Date Type Department Care Team (Late st Contact Info) Description 12/25/2020 Orders Only [facility] [address] [facility] [address] [place] [address] Wesley Em MD [address] [place] [address] [address] [place], [place] [id number] Sleep apnea, unspecified type (Primary Dx); PAD (peripheral artery disease) (CMS/HCC); Fatigue, unspecified type; Hypersomnia; Essential hypertension; Type 2 diabetes mellitus with hyperlipidemia (CMS/HCC) Social History Tobacco Use Types Packs/Day Years [...] on file 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 RECEIVABLES SPECIALIST Gender Identity Not on file Sexual Orientation Straight 01/23/2021 10 :16 PM CDT documented as of this encounter Miscellaneous Notes * Addendum Note - Jong Church CLT - 12/25/2020 2:14 PM CDTAddended by: JONG CHURCH on: 11/02/2021 12:17 PM Modules accepted: Orders * Addendum Note - Cata Huang - 12/25/2020 2:14 PM CDTAddended by: CATA HUANG on: 11/02/2021 05:09 PM Modules accepted: Orders documented in this encounter Plan of Treatment Not on file documented as of this encounter Results * (ABNORMAL) CBC with auto differential (11/02/2021 [...] Final Res ult [facility] ([facility]) 1 [facility] Department [place] [address] * Lipid panel (11/02/2021 12:21 PM CDT) Cholesterol 122 30 - 199 mg/dL [facility] ([facility]) Comment: [...] ratio 3 [facility] ([facility]) Blood 11/02/2021 12:2 1 PM CDT 11/02/2021 2:07 PM CDT Narrative [facility] ([facility]) - 11/02/2021 2:53 PM CDT Pt will be getting labs in the next month Wesley Em MD LAB BLOOD ORDERABLES Final Res ult [facility] ([facility]) 1 [facility] [employer] [place] [address] * TSH (11/02/2021 12:21 PM CDT) Thyroid Stimulating Hormone 3.68 0.30 - 4.20 mcIUnit/mL [facility] ([facility]TY) Blood 11/02/2021 12:2 1 PM CDT 11/02/2021 2:07 PM CDT Narrative [facility] ([facility]ETTY) - 11/02/2021 2:53 PM CDT Pt will be getting labs in the next month Wesley Em MD LAB BLOOD ORDERABLES Final Res ult Performing Organization Address [facility] Co de Phone Number [facility] (BETTY) 1 [facility] [place] [address] * T4, free (11/02/2021 12:21 PM CDT) Free T4 1.17 0.90 - 1.70 ng/dL [facility] ([facility]) Blood 11/02/2021 12:2 1 PM CDT 11/02/2021 2:07 PM CDT Narrative [facility] ([facility]ETTY) - 11/02/2021 2:53 PM CDT Pt will be getting labs in the next month Wesley Em MD LAB BLOOD ORDERABLES Final Res ult [facility] ([facility]TY) 1 [facility] [employer] [place] [address] documented in this encounter Visit Diagnoses Diagnosis Sleep apnea, unspecified type- Primary PAD (peripheral artery disease) (HCC) Unspecified peripheral vascular disease Fatigue, unspecified type Hypersomnia Hypersomnia, unspecified Essential hypertension Unspecified essential hypertension Type 2 diabetes mellitus with hyperlipidemia (HCC) Hypersomnia Hypersomnia, unspecified Essential hypertension Unspecified essential hypertension Fatigue, unspecified type Type 2 diabetes mellitus with hyperlipidemia (HCC) documented in this encounter Care Teams Sheet Tester Relationship Specialty Start Date End Date Wesley Em MD PCP - General 09/30/16 12/01/21 Trey Pinedo MD [address] [place] [address] [address] [place] [address] Consulting Physician Neurology 05/09/19 Dorinda Chavez, SPECIAL SHOPPER[address] [place] [address] Hr Receptionist 12/30/20 01/26/21 documented as of this encounter
--- OUTSIDE RECORDS SUMMARY | 2024-06-18 18:11 | XMS_ITS | Encounter Summary ---
Author Organization [facility] Address [address] [place] [address] Care Team Providers Care Lamp Assembler Name Role Phone Wesley Em MD Primary Care Provider [phone] Trey Pinedo MD Unavailable [phone] Encounter Details Date Type Department Care Team (Late st Contact Info) Description 01/14/2020 Orders Only [facility] [address] [facility] [address] [place] [address] Wesley Em MD 2 [facility] [address] [place] [address] Type 2 diabetes mellitus with hyperlipidemia (CMS/HCC) (Primary Dx) Social History Tobacco Use Types Packs/Day Years Used Date Smoking Tobacco: Former Cigarettes 0.1 50 1 479 - 2009 Smokeless Tobacco: Never Alcohol Use Standard Drinks/Week Comments No 0 (1 standard drink = 0.6 oz pur e alcohol) PHQ-2 Answer Date Recorded PHQ-2 Score 0 02/22/2019 Sex and Gender Information Value Date Recorded Sex Assigned at Not on file 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 Gender Identity Not on file Sexual Orientation Straight 01/23/2021 10 :16 PM CDT documented as of this encounter Miscellaneous Notes * Addendum Note - Keesha Leos, DC - 01/14/2020 9:16 AM CDTAddended by: KEESHA LEOS on: 02/26/2020 10:21 AM Modules accepted: Orders documented in this encounter Plan of Treatment Not on file documented as of this encounter Results * Basic metabolic panel (02/26/2020 10:29 AM CDT) Sodium 135 135 - 145 mmol/L [facility] ([facility]) Potassium, pl 3.9 3.3 - 4.9 mmol/L [facility] ([place]) Chloride 100 97 - 110 mmol/L [facility] ([place]) CO2 27 22 - 32 mmol/L [facility] ([place]) Anion gap 8 2 - 15 mmol/L [facility] ([place]) BUN 21 8 - 25 mg/dL [facility] ([place]) Creatinine 1.15 0.80 - 1.30 mg/dL [facility]) Glucose 153 70 - 199 mg/dL [facility] ([facility]) Comment: Interpretive Data Fasting glucose [...] interpretive data was last revised 2017. Calcium 8.9 8.5 - 10.3 mg/dL [facility] ([facility]) Blood specimen (specimen) 02/26/2020 10:29 AM CDT 02/26/2020 10:46 AM CDT us Wesley Em MD LAB BLOOD ORDERABLES Final Res ult [facility] ([place]) [address] [facility] [place] [address] * (ABNORMAL) CBC with auto differential (02/26/2020 10:29 AM CDT) WBC 6.8 3.8 - 9.9 K/cumm [facility] ([place]) Hgb 18.2(H) 13.0 - 17.5 g/dL [facility] ([place]) Hct 51.7(H) 38.9 - 50.3 % [facility] ([place]) Plt 152 150 - 400 K/cumm [facility] ([place]) MPV 10.4 9.1 - 12.3 fL [facility] ([facility]) RBC 5.39 4.30 - 5.80 M/cumm [facility] ([place]) MCV 95.9 81.3 - 96.4 fL [facility] ([place]) MCH 33.8(H) 27.1 - 33.3 pg [facility] ([facility]) MCHC 35.2 32.3 - 35.7 g/dL [facility] ([facility]) RDW CV 12.6 11.1 - 14.9 % [facility] ([facility]) RDW SD 44.3 35.7 - 48.1 fL [facility] ([facility]) NRBC abs 0.00 0.00 - 0.01 K/cumm [facility] ([facility]) Blood specimen (specimen) 02/26/2020 10:29 AM CDT 02/26/2020 10:46 AM CDT us Wesley Em MD LAB BLOOD ORDERABLES Final Res ult [facility] [address] [facility] Department [place] [address] * (ABNORMAL) Hemoglobin A1c (02/26/2020 10:29 AM CDT) Hgb A1C 5.9(H) 4.0 - 5.6 % [facility] ([facility]) Estimated Average Glucose 123 mg/dL [facility] ([facility]) Comment: The ADA recommends reporting an estimated Average Glucose (eAG) with all Hemoglobin A1c results using the equation derived from a study of 507 normal and diabetic adults. ??Minority populations were underrepresented and children were not included. ?? (Diabetes Care 31:1570-6572, 2008). ??The eAG is not equivalent to a fasting glucose. Blood specimen (specimen) 02/26/2020 10:29 AM CDT 02/26/2020 10:46 AM CDT Wesley Em MD LAB BLOOD ORDERABLES Final Res ult Performing Organization Address City/[facility]/ZIP Co de Phone Number [facility] ([place]) [address] [facility] [place] [address] * (ABNORMAL) Albumin Creatinine Ratio, Urine (02/26/2020 10:27 AM CDT) Albumin Ur 123.9 mg/L [facility] ([place]) Comment: Interpretive Data No reference range established. Current interpretive data was last revised 2018. Testing performed by: [facility], [address] [place] [address]., [id number] Creatinine Ur 97.8 mg/dL [facility] ([place]) Comment: Interpretive Data No reference range established. Current interpretive data was last revised 2018. Testing performed by: [facility], [address] [place] [address]., [address] Albumin Creatinine Ratio, Ur 127(H) 1 - 29 mg/g [facility] ([facility] Comment:Testing performed by : [facility], [address] [place] [address]., [address] Urine 02/26/2020 10:2 7 AM CDT 02/26/2020 1:58 PM CDT us Wesley Em MD LAB URINE ORDERABLES Final Res ult Performing Organization Address [facility] Co de Phone Number [facility] ([place]) [address] [facility] [place] [address] documented in this encounter Visit Diagnoses Diagnosis Type 2 diabetes mellitus with hyperlipidemia (HCC)- Primary documented in this encounter Care Teams Lamp Assembler Relationship Specialty Start Date End Date Wesley Em MD PCP - General 09/30/16 12/01/21 Trey Pinedo MD 4 [facility] [address] [facility] [place] [address] Consulting Physician Neurology 05/09/19 documented as of this encounter
--- OUTSIDE RECORDS SUMMARY | 2024-06-18 18:11 | XMS_ITS | Encounter Summary ---
Author Organization [facility] Address [address] [place] [address] Care Team Providers Care Screener And Blender Operator Name Role Phone Wesley Em MD Primary Care Provider [phone] Trey Pinedo MD Unavailable [phone] Encounter Details Date Type Department Care Team (Late st Contact Info) Description 02/26/2020 Orders Only [facility] [address] [facility] [address] [place] [address] Wesley Em MD 2 [facility] [address] [place] [address] Essential hypertension (Primary Dx); Mixed hyperlipidemia; Type 2 diabetes mellitus with hyperlipidemia (CMS/HCC); Screening PSA (prostate specific antigen); Benign prostatic hyperplasia, unspecified whether lower urinary tract symptoms present Social History Tobacco Use Types Packs/Day Years [...] on file 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 Gender Identity Not on file Sexual Orientation Straight 01/23/2021 10 :16 PM CDT documented as of this encounter Progress Notes * Fariba Thompsno - 02/26/2020 9:45 AM CDT Lab for amh due today and 08/2020 documented in this encounter Plan of Treatment Not on file documented as of this encounter Results * (ABNORMAL) Hemoglobin A1c (08/27/2020 9:56 AM FENDER MECHANIC) Hgb A1C 6.4(H) 4.0 - 5.6 % [facility] ([place]) Estimated Average Glucose 137 mg/dL [facility] ([place]) Comment: The ADA recommends reporting an estimated Average Glucose (eAG) with all Hemoglobin A1c results using the equation derived from a study of 507 normal and diabetic adults. ??Minority populations were underrepresented and children were not included. ?? (Diabetes Care 31:4645-1635, 2007). ??The eAG is not equivalent to a fasting glucose. Blood specimen (specimen) 08/27/2020 9:56 AM FENDER MECHANIC 08/27/2020 10:26 AM FENDER MECHANIC Narrative [facility] ([facility] - 08/27/2020 11:14 AM FENDER MECHANIC fasting Wesley Em MD LAB BLOOD ORDERABLES Final Res ult [facility] ([place]) [address] [facility] Department [place] [address] * (ABNORMAL) Albumin Creatinine Ratio, Urine (08/27/2020 9:56 AM FENDER MECHANIC) Albumin Ur 468.4 mg/L [facility] ([place]) Comment: Interpretive Data No reference range established. Current interpretive data was last revised 2018. Testing performed by: [address] [place] [address] Creatinine Ur 148.5 mg/dL [facility] ([place]) Comment: Interpretive Data No reference range established. Current interpretive data was last revised 2018. Testing performed by: [facility], [address] [place] [address], [place]., [address] Albumin Creatinine Ratio, Ur 315(H) 1 - 29 mg/g [facility] ([place]) Comment:Testing performed by : [facility], [address] [place] [address], [place]., [address] Urine 08/27/2020 9:56 AM FENDER MECHANIC 08/27/2020 2:15 PM FENDER MECHANIC Narrative [facility] ([place]) - 08/27/2020 3:27 PM FENDER MECHANIC fasting us Wesley Em MD LAB URINE ORDERABLES Final Res ult [facility] ([place]) [address] [facility] Department [place] [address] * (ABNORMAL) Lipid panel (08/27/2020 9:56 AM FENDER MECHANIC) Cholesterol 142 30 - 199 mg/dL [facility] ([place]) [...] Data was last revised on 2018. Triglycerides 264(H) <=149 mg/dL [facility] ([place]) Comment: Interpretive [...] Data was last revised on 2018. HDL 32(L) >=40 mg/dL [facility]) Comment: Interpretive Data Ages < or [...] was last revised on 2018. LDL, calculated 57 <=129 mg/dL [facility]) Comment: Interpretive Data [...] was last revised on 2018. Non-HDL Cholesterol 110 mg/dL [facility] ([place]) Comment: Interpretive Data [...] last revised on 2018. Chol/HDL ratio 4 [facility] ([place]) Blood specimen (specimen) 08/27/2020 9:56 AM FENDER MECHANIC 08/27/2020 10:26 AM FENDER MECHANIC Narrative [facility] ([place]) - 08/27/2020 11:33 AM FENDER MECHANIC fasting us Wesley Em MD LAB BLOOD ORDERABLES Final Res ult [facility] ([place]) [address] [facility] Department of Laboratories [place], [place] [id number] * (ABNORMAL) Urinalysis reflex to microscopic and culture Urine, clean voided (08/27/2020 9:56 AM FENDER MECHANIC) Color, ur Yellow Yellow [facility] ([place]) Clarity, ur Clear Clear [facility] ([place]) Specific gravity, ur 1.021 1.010 - 1.025 [facility] ([place]) pH, urine 6.5 [facility] ([place]) Protein, ur ql 1+(A) Negative [facility] ([place]) Glucose, ur ql Trace(A) Negative [facility] ([place]) Ketones, ur Negative Negative [facility] ([place]) Bilirubin, ur Negative Negative [facility] ([place]) Blood, ur Negative Negative [facility] ([place]) Urobilinogen, ur <2.0 <2.0 mg/dL [facility] ([place]) Nitrite, ur Negative Negative [facility] ([place]) Leukocyte esterase, ur Negative Negative [facility] ([place]) UA reflex comment Reflex to microscopic UA will be performed. [facility] ([facility]) Urine, clean voided 08/27/2020 9:56 AM FENDER MECHANIC 08/27/2020 11:06 AM FENDER MECHANIC Narrative [facility] ([facility]) - 08/27/2020 11:15 AM FENDER MECHANIC fasting Urine pH is affected by diet, medications, systemic acid-base disturbances, and renal tubular function. ??pH may affect urinary stone formation. ??For example, urine pH below 6.0 may help reduce the tendency for calcium phosphate stones and pH greater than 6.0 may reduce the tendency for uric acid stone formation. Source: Gomer Blip. Last revised 07-13-2017 us Wesley Em MD LAB MICROBIOLOGY - GENERAL ORD ERABLES Final Result [facility] ([place]) [address] [facility] Department [place] [address] * (ABNORMAL) Comprehensive metabolic panel (08/27/2020 9:56 AM FENDER MECHANIC) Sodium 140 135 - 145 mmol/L [facility] ([facility]) Potassium, pl 3.8 3.3 - 4.9 mmol/L [facility] ([place]) Chloride 103 97 - 110 mmol/L [facility] ([place]) CO2 27 22 - 32 mmol/L [facility] ([place]) Anion gap 9 2 - 15 mmol/L [facility] ([place]) BUN 17 8 - 25 mg/dL [facility] ([place]) Creatinine 1.12 0.80 - 1.30 mg/dL [facility] ([place]) Comment:Icteric sample, test results may be affected. Glucose 150 70 - 199 mg/dL [facility] [...] 2017. Calcium 8.6 8.5 - 10.3 mg/dL [facility] ([place]) Bilirubin, total 1.1 0.1 - 1.2 mg/dL [facility] ([place]) Protein, pl 6.2(L) 6.5 - 8.5 g/dL [facility] ([place]) Albumin 3.8 3.5 - 5.0 g/dL [facility] ([place]) Alk phos 93 40 - 130 Units/L [facility] ([place]) ALT 18 7 - 55 Units/L [facility] ([place]) AST 15 10 - 50 Units/L [facility] ([place]) Comment:Slightly Hemolyzed S pecimen Blood specimen (specimen) 08/27/2020 9:56 AM FENDER MECHANIC 08/27/2020 10:26 AM FENDER MECHANIC Narrative [facility] ([place]) - 08/27/2020 11:32 AM FENDER MECHANIC fasting us Wesley Em MD LAB BLOOD ORDERABLES Final Res ult [facility] ([place]) [address] [facility] Department [place] [address] * (ABNORMAL) CBC with auto differential (08/27/2020 9:56 AM FENDER MECHANIC) WBC 6.8 3.8 - 9.9 K/cumm [facility] ([place]) Hgb 19.2(H) 13.0 - 17.5 g/dL [facility] ([place]) Hct 54.0(H) 38.9 - 50.3 % [facility] ([place]) Plt 159 150 - 400 K/cumm [facility] ([place]) MPV 10.9 9.1 - 12.3 fL [facility] ([place]) RBC 5.67 4.30 - 5.80 M/cumm [facility] ([place]) MCV 95.2 81.3 - 96.4 fL [facility] ([place]) MCH 33.9(H) 27.1 - 33.3 pg [facility] ([place]) MCHC 35.6 32.3 - 35.7 g/dL [facility] ([place]) RDW CV 11.9 11.1 - 14.9 % [facility] ([place]) RDW SD 41.4 35.7 - 48.1 fL [facility] ([place]) NRBC abs 0.00 0.00 - 0.01 K/cumm [facility] ([place]) Blood specimen (specimen) 08/27/2020 9:56 AM FENDER MECHANIC 08/27/2020 10:26 AM FENDER MECHANIC Narrative [facility] ([place]) - 08/27/2020 10:30 AM FENDER MECHANIC fasting Wesley Em MD LAB BLOOD ORDERABLES Final Res ult [facility] ([place]) [address] [facility] Department of Laboratories [place], [place] [id number] * PSA diagnostic (08/27/2020 9:56 AM FENDER MECHANIC) PSA-Total 1.92 <=6.20 ng/mL [facility] ([facility]) Comment: Interpretive Data ?AGE ? SEX ?REFERENCE INTERVAL 0 minutes-150 years ?Female ?None 0 minutes-49 years ? Male ?None ? 50-59 years ? Male ?0-3.90 ? 60-69 years ? Male ?0-5.40 ? 70-79 years ? Male ?0-6.20 ? 80-150 years ?Male ?0-6.20 Current interpretive data last revised 2018. Testing performed by: [facility], [address] [place] [address]., [address] Blood specimen (specimen) 08/27/2020 9:56 AM FENDER MECHANIC 08/27/2020 2:04 PM FENDER MECHANIC Narrative [facility] ([place]) - 08/27/2020 2:53 PM FENDER MECHANIC fasting us Wesley Em MD LAB BLOOD ORDERABLES Final Res ult [facility] ([place]) [address] [facility] [place] [address] documented in this encounter Visit Diagnoses Diagnosis Essential hypertension- Primary Unspecified essential hypertension Mixed hyperlipidemia Type 2 diabetes mellitus with hyperlipidemia (HCC) Screening PSA (prostate specific antigen) Special screening for malignant neoplasm of prostate Benign prostatic hyperplasia, unspecified whether lower urinary tract symptoms present Screening PSA (prostate specific antigen) Special screening for malignant neoplasm of prostate Benign prostatic hyperplasia, unspecified whether lower urinary tract symptoms present Essential hypertension Unspecified essential hypertension Mixed hyperlipidemia Type 2 diabetes mellitus with hyperlipidemia (HCC) documented in this encounter Care Teams Screener And Blender Operator Relationship Specialty Start Date End Date Wesley Em MD PCP - General 09/30/16 12/01/21 Trey Pinedo MD [address] [place] [address] [address] [place] [address] Consulting Physician Neurology 05/09/19 documented as of this encounter
--- OUTSIDE RECORDS SUMMARY | 2024-06-18 18:11 | XMS_ITS | Encounter Summary ---
Author Organization [facility] Healthcare Address [address] [place] [address] Care Team Providers Care Quantitative Associate Name Role Phone Wesley Em MD Primary Care Provider Trey Pinedo MD Unavailable [phone] Encounter Details Date Type Department Care Team (Late st Contact Info) Description 08/27/2020 9:55 AM LABORER TREE TAPPING Lab [facility] [address] [place] [address] Wesley Em MD [address] [place] [id number] Screening PSA (prostate specific antigen); Benign prostatic hyperplasia, unspecified whether lower urinary tract symptoms present; Essential hypertension; Mixed hyperlipidemia; Type 2 diabetes mellitus with hyperlipidemia ([facility]) Discharge Disposition: Discharge to home or self care Social History Tobacco Use Types Packs/Day Years Used Date Smoking Tobacco: Former Cigarettes 0.1 50 1 959 - 2008 Smokeless Tobacco: [...] on file 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 LABORER TREE TAPPING Gender Identity Not on file Sexual Orientation Straight 01/23/2021 10 :16 PM CDT documented as of this encounter Discharge Disposition Disposition Code Departure Means Destination Discharge to home or self care documented in this encounter Miscellaneous Notes * Result Encounter Note - Wesley Em MD - 08/31/2020 8:13 AM CST Patient has elevated red blood cells this is consistent with a diagnosis of polycythemia have the patient do pulmonary function test and 6 minutes walk test have the patient check serum EPO level andcarboxyhemoglobin level and also schedule sleep study Diagnosis polycythemia RER TREE TAPPING documented in this encounter Plan of Treatment Not on file documented as of this encounter Procedures Procedure Name Priority Date/Time Associated Diagnosis Comments EGFR Routine 08/27/2020 9:56 AM LABORER TREE TAPPING Essential hypertension Mixed hyperlipidemia Type 2 diabetes mellitus with hyperlipidemia (CMS/HCC) DIFFERENTIAL AUTO Routine 08/27/2020 9:5 6 AM LABORER TREE TAPPING Essential hypertension Mixed hyperlipidemia Type 2 diabetes mellitus with hyperlipidemia (CMS/HCC) URINALYSIS AND REFLEX TO MICROSCOPIC AND CULTURE Routine 08/27/2020 9:56 AM LABORER TREE TAPPING Essential hypertension Mixed hyperlipidemia Type 2 diabetes mellitus with hyperlipidemia (CMS/HCC) CBC WITH AUTO DIFFERENTIAL Routine 08/27/2020 9:56 AM LABORER TREE TAPPING Essential hypertension Mixed hyperlipidemia Type 2 diabetes mellitus with hyperlipidemia (CMS/HCC) ALBUMIN CREATININE RATIO, URINE Routine 08/27/2020 9:56 AM LABORER TREE TAPPING Essential hypertension Mixed hyperlipidemia Type 2 diabetes mellitus with hyperlipidemia (CMS/HCC) URINALYSIS, MICROSCOPIC ONLY Routine 08/27/2020 9:56 AM LABORER TREE TAPPING Essential hypertension Mixed hyperlipidemia Type 2 diabetes mellitus with hyperlipidemia (CMS/HCC) PSA DIAGNOSTIC Routine 08/27/2020 9:56 AM LABORER TREE TAPPING Screening PSA (prostate specific antigen) Benign prostatic hyperplasia, unspecified whether lower urinary tract symptoms present HEMOGLOBIN A1C Routine 08/27/2020 9:56 AM LABORER TREE TAPPING Essential hypertension Mixed hyperlipidemia Type 2 diabetes mellitus with hyperlipidemia (CMS/HCC) LIPID PANEL Routine 08/27/2020 9:56 AM LABORER TREE TAPPING Essential hypertension Mixed hyperlipidemia Type 2 diabetes mellitus with hyperlipidemia (CMS/HCC) COMPREHENSIVE METABOLIC PANEL Routine 08/27/2020 9:56 AM LABORER TREE TAPPING Essential hypertension Mixed hyperlipidemia Type 2 diabetes mellitus with hyperlipidemia (CMS/HCC) documented in this encounter Results * eGFR (08/27/2020 9:56 AM LABORER TREE TAPPING) eGFR 65 mL/min/1.7 3 m2 RUBENS CARMICHAEL ([place]) Comment: [...] interpretive data was last reviewed 2020 Blood specimen (specimen) 08/27/2020 9:56 AM LABORER TREE TAPPING 08/27/2020 10:26 AM LABORER TREE TAPPING us Wesley Em MD LAB BLOOD ORDERABLES Final Res ult RUBENS CARMICHAEL ([place]) 1 [facility] [place] [address] * (ABNORMAL) Urinalysis, microscopic only (08/27/2020 9:56 AM LABORER TREE TAPPING) WBC, ur 0-5 0 - 5 /HPF [facility] ([place]) RBC, ur 0-2 0 - 2 /HPF [facility] ([place]) Mucous, ur Present(A) [facility] ([place]) Culture Reflex Comment Reflex conditions for urine culture (WBC >10) not met. [facility] ([place]) Urine, clean voided 08/27/2020 9:56 AM LABORER TREE TAPPING 08/27/2020 11:06 AM LABORER TREE TAPPING us Wesley Em MD LAB URINE ORDERABLES Final Res ult R[facility]ENS [facility] ([place]) 1 [facility] [place] [address] * Differential, auto (08/27/2020 9:56 AM LABORER TREE TAPPING) Pathologist [facility] Neutrophil abs 4.8 1.7 - 6.5 K/cumm [facility] ([place]) Imm gran abs 0.0 0.0 - 0.1 K/cumm [facility] ([place]) Lymphocyte abs 1.1 0.8 - 3.3 K/cumm [facility] ([place]) Monocyte abs 0.6 0.2 - 0.8 K/cumm [facility] ([place]) Eosinophil abs 0.3 0.0 - 0.5 K/cumm [facility] ([place]) Basophil abs 0.1 0.0 - 0.1 K/cumm [facility] ([place]) Neutrophil pct 70.0 % [facility] ([place]) Comment: Interpretive [...] was last revised on 2017. Lymphocyte pct 15.8 % [facility] ([place]) Comment: Interpretive Data Percent cell count reference ranges are not reported, since discordance with absolute values may lead to misinterpretation of CBC data. Current Interpretive Data was last revised on 2017. Monocyte pct 8.5 % [facility] ([place]) Comment: Interpretive Data Percent cell count reference ranges are not reported, since discordance with absolute values may lead to misinterpretation of CBC data. Current Interpretive Data was last revised on 2017. Eosinophil pct 3.7 % [facility] ([place]) Comment: Interpretive Data Percent cell count reference ranges are not reported, since discordance with absolute values may lead to misinterpretation of CBC data. Current Interpretive Data was last revised on 2017. Basophil pct 1.6 % [facility] ([place]) Comment: Interpretive Data Percent cell count reference ranges are not reported, since discordance with absolute values may lead to misinterpretation of CBC data. Current Interpretive Data was last revised on 2017. Blood specimen (specimen) 08/27/2020 9:56 AM LABORER TREE TAPPING 08/27/2020 10:26 AM LABORER TREE TAPPING us Wesley Em MD LAB BLOOD ORDERABLES Final Res ult RUBENS CARMICHAEL ([place]) 1 [facility] [place] [address] * (ABNORMAL) Hemoglobin A1c (08/27/2020 9:56 AM LABORER TREE TAPPING) Hgb A1C 6.4(H) 4.0 - 5.6 % RUBENS CARMICHAEL ([place]) Estimated Average Glucose 137 mg/dL RUBENS CARMICHAEL ([place]) Comment: The ADA recommends reporting an estimated Average Glucose (eAG) with all Hemoglobin A1c results using the equation derived from a study of 507 normal and diabetic adults. ??Minority populations were underrepresented and children were not included. ?? (Diabetes Care 31:2802-3634, 2008). ??The eAG is not equivalent to a fasting glucose. Blood specimen (specimen) 08/27/2020 9:56 AM LABORER TREE TAPPING 08/27/2020 10:26 AM LABORER TREE TAPPING Narrative RUB[facility] CARMICHAEL ([place]) - 08/27/2020 11:14 AM LABORER TREE TAPPING fasting Wesley Em MD LAB BLOOD ORDERABLES Final Res ult Performing Organization Address [facility] [[email or web address]] Co de Phone Number RUBENS CARMICHAEL ([place]) 1 [facility] [employer] [address] * (ABNORMAL) Albumin Creatinine Ratio, Urine (08/27/2020 9:56 AM LABORER TREE TAPPING) Albumin Ur 468.4 mg/L [facility] ([place]) Comment: Interpretive Data No reference range established. Current interpretive data was last revised 2018. Testing performed by: [facility], [address] [place] [address]., [id number] Creatinine Ur 148.5 mg/dL RUBENS CARMICHAEL ([place]) Comment: Interpretive Data No reference range established. Current interpretive data was last revised 2018. Testing performed by: [facility], [address] [place] [address]., [id number] Albumin Creatinine Ratio, Ur 315(H) 1 - 29 mg/g RUBENS CARMICHAEL ([place]) Comment:Testing performed by : [facility], [address] [place] [address]., [id number] Urine 08/27/2020 9:56 AM LABORER TREE TAPPING 08/27/2020 2:15 PM LABORER TREE TAPPING Narrative RUBENS CARMICHAEL ([place]) - 08/27/2020 3:27 PM LABORER TREE TAPPING fasting Wesley Em MD LAB URINE ORDERABLES Final Res ult Performing Organization Address City/[facility]/ZIP Co de Phone Number RUBENS CARMICHAEL ([place]) 1 [facility] [place] [address] * (ABNORMAL) Lipid panel (08/27/2020 9:56 AM LABORER TREE TAPPING) Cholesterol 142 30 - 199 mg/dL [facility] ([place]) Comment: Interpretive Data [...] on 2018. Triglycerides 264(H) <=149 mg/dL [facility] ([place]) Comment: Interpretive Data [...] revised on 2018. HDL 32(L) >=40 mg/dL [facility] ([place]) Comment: Interpretive Data [...] 2018. LDL, calculated 57 <=129 mg/dL RUBENS CARMICHAEL ([place]) Comment: Interpretive [...] revised on 2018. Non-HDL Cholesterol 110 mg/dL RUBENS CARMICHAEL ([place]) Comment: Interpretive Data [...] ([place]) Blood specimen (specimen) 08/27/2020 9:56 AM LABORER TREE TAPPING 08/27/2020 10:26 AM LABORER TREE TAPPING Narrative [facility] ([place]) - 08/27/2020 11:33 AM LABORER TREE TAPPING fasting us Wesley Em MD LAB BLOOD ORDERABLES Final Res ult [facility] ([place]) 1 [facility] Department [place] [address] * (ABNORMAL) Urinalysis reflex to microscopic and culture Urine, clean voided (08/27/2020 9:56 AM LABORER TREE TAPPING) Color, ur Yellow Yellow [facility] ([place]) [...] Reflex to microscopic UA will be performed. [facility] ([place]) Urine, clean voided 08/27/2020 9:56 AM LABORER TREE TAPPING 08/27/2020 11:06 AM LABORER TREE TAPPING Narrative [facility] ([place]) - 08/27/2020 11:15 AM LABORER TREE TAPPING fasting Urine pH is affected by diet, medications, systemic acid-base disturbances, and renal tubular function. ??pH may affect urinary stone formation. ??For example, urine pH below 6.0 may help reduce the tendency for calcium phosphate stones and pH greater than 6.0 may reduce the tendency for uric acid stone formation. Source: [employer]. Last revised 07-13-2017 us Wesley Em MD LAB MICROBIOLOGY - GENERAL ORD ERABLES Final Result RUBENS CARMICHAEL ([place]) 1 [facility] Department [place] [address] * (ABNORMAL) Comprehensive metabolic panel (08/27/2020 9:56 AM LABORER TREE TAPPING) Sodium 140 135 - 145 mmol/L [facility] ([place]) Potassium, pl 3.8 3.3 - [...] pecimen Blood specimen (specimen) 08/27/2020 9:56 AM LABORER TREE TAPPING 08/27/2020 10:26 AM LABORER TREE TAPPING Narrative [facility] ([place]) - 08/27/2020 11:32 AM LABORER TREE TAPPING fasting us Wesley Em MD LAB BLOOD ORDERABLES Final Res ult [facility] ([place]) 1 [facility] Department [place] [address] * (ABNORMAL) CBC with auto differential (08/27/2020 9:56 AM LABORER TREE TAPPING) WBC 6.8 3.8 - 9.9 K/cumm CERNER [...] ([place]) Blood specimen (specimen) 08/27/2020 9:56 AM LABORER TREE TAPPING 08/27/2020 10:26 AM LABORER TREE TAPPING Narrative [facility] ([place]) - 08/27/2020 10:30 AM LABORER TREE TAPPING fasting us Wesley Em MD LAB BLOOD ORDERABLES Final Res ult Performing Organization Address City/[facility]/ZIP Co de Phone Number RUBENS CARMICHAEL ([place]) 1 [facility] [employer] [facility] [employer] [address] * PSA diagnostic (08/27/2020 9:56 AM LABORER TREE TAPPING) PSA-Total 1.92 <=6.20 ng/mL RUBENS CARMICHAEL ([place]) Comment: Interpretive Data ?AGE ? SEX ?REFERENCE INTERVAL 0 minutes-150 years ?Female ?None 0 minutes-49 years ? Male ?None ? 50-59 years ? Male ?0-3.90 ? 60-69 years ? Male ?0-5.40 ? 70-79 years ? Male ?0-6.20 ? 80-150 years ?Male ?0-6.20 Current interpretive data last revised 2018. Testing performed by: [facility], [address] [place] [address]., [id number] Blood specimen (specimen) 08/27/2020 9:56 AM LABORER TREE TAPPING 08/27/2020 2:04 PM LABORER TREE TAPPING Narrative RUBENS CARMICHAEL ([place]) - 08/27/2020 2:53 PM LABORER TREE TAPPING fasting us Wesley Em MD LAB BLOOD ORDERABLES Final Res ult Performing Organization Address [facility]/ZIP Co de Phone Number RUBENS CARMICHAEL ([place]) 1 [facility] Department of [employer] [place] [address] documented in this encounter Visit Diagnoses Diagnosis Screening PSA (prostate specific antigen) Special screening for malignant neoplasm of prostate Benign prostatic hyperplasia, unspecified whether lower urinary tract symptoms present Essential hypertension Unspecified essential hypertension Mixed hyperlipidemia Type 2 diabetes mellitus with hyperlipidemia (HCC) documented in this encounter Care Teams Quantitative Associate Relationship Specialty Start Date End Date Wesley Em MD PCP - General 09/30/16 12/01/21 Trey Pinedo MD [address] [facility] [address] [place] [address] [place] [address] [address] Consulting Physician Neurology 05/09/19 documented as of this encounter
--- OUTSIDE RECORDS SUMMARY | 2024-06-18 18:11 | XMS_ITS | Encounter Summary ---
Author Organization [facility] Address [address] [place] [address] Care Team Providers Care Compensation Manager Name Role Phone Wesley Em MD Primary Care Provider [phone] Trey Pinedo MD Unavailable [phone] Encounter Details Date Type Department Care Team (Late st Contact Info) Description 11/12/2019 Telephone [facility] Gastroenterology at [address] [place] [address] Kyra Turner MA Social History Tobacco Use Types Packs/Day [...] on file 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 WELLNESS RN Gender Identity Not on file Sexual Orientation Straight 01/23/2021 10 :16 PM CDT documented as of this encounter Miscellaneous Notes * Telephone Encounter - Kyra Turner MA - 11/12/2019 9:17 AM CDT Pt is scheduled fro an egd with dr powell on Monday12-04-19 at 10:30 am, verbal instructions given and mailed to verified address, covid test ordered Pt is on plavix, advised to stop 5 days prior to procedure, has 3 stents placed 4 yrs ago documented in this encounter Plan of Treatment Not on file documented as of this encounter Visit Diagnoses Diagnosis Mayo's esophagus with dysplasia- Primary Pre-procedure lab exam Pre-procedural laboratory examination documented in this encounter Care Teams Compensation Manager Relationship Specialty Start Date End Date Wesley Em MD PCP - General 09/30/16 12/01/21 Trey Pinedo MD [address] [facility] [address] [place] [facility] [place] [address] Consulting Physician Neurology 05/09/19 documented as of this encounter
--- OUTSIDE RECORDS SUMMARY | 2024-06-18 18:11 | XMS_ITS | Encounter Summary ---
Author Organization [facility] Medical [facility] Address [address] [place] [address] Care Team Providers Care Call Or Contact Centre Operator Name Role Phone Wesley Em MD Primary Care Provider [phone] Trey Pinedo MD Unavailable [phone] Encounter Details Date Type Department Care Team (Late st Contact Info) Description 12/28/2020 Telephone [facility] 2 [facility] [address] [place] [address] Wesley Em MD [address] [place] [address] [address] [place] [address] Social History Tobacco Use Types Packs/Day Years Used Date Smoking Tobacco: Former Cigarettes 0.1 50 1 179 - 2009 Smokeless Tobacco: Never Alcohol Use Standard Drinks/Week Comments No 0 (1 standard drink = 0.6 oz pur e alcohol) PHQ-2 Answer Date Recorded PHQ-2 Total Score (If total score is 3 or more points, staff should administer the PHQ-9) 0 12/25/2020 Sex and Gender Information Value Date Recorded Sex Assigned at Not on file 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 FLOOR WAXER Gender Identity Not on file Sexual Orientation Straight 01/23/2021 10 :16 PM CDT documented as of this encounter Miscellaneous Notes * Telephone Encounter - Barbara Musa MA - 12/28/2020 12:44 PM CDT jr * Telephone Encounter - Dayanara Stoll - 12/28/2020 12:14 PM CDT FYI - Pt's son Ian called to schedule an appt for the pt. The pt has some bruising, sob, and chestpain. The pt admitted that he had fallen getting out of the bathtub yesterday. Ian is going to tryto take him to the ER but the pt is resistant. Ian will call back if he cannot get the pt to go tothe ER. documented in this encounter Plan of Treatment Not on file documented as of this encounter Visit Diagnoses Not on filedocumented in this encounter Care Teams Call Or Contact Centre Operator Relationship Specialty Start Date End Date Wesley Em MD PCP - General 09/30/16 12/01/21 Trey Pinedo MD [address] [facility] [place] [address] Consulting Physician Neurology 05/09/19 documented as of this encounter
--- OUTSIDE RECORDS SUMMARY | 2024-06-18 18:11 | XMS_ITS | Encounter Summary ---
Author Organization [facility] Healthcare Address [address] [place] [address] Care Team Providers Care Cell Support Operator Name Role Phone Wesley Em MD Primary Care Provider [phone] Trey Pinedo MD Unavailable [phone] Dorinda Chavez [facility] Unavailable [phone] Encounter Details Date Type Department Care Team (Late st Contact Info) Description 01/01/2021 Telephone [facility] Emergency Department [address] [place] [address] Wesley Washington, RN Social History Tobacco Use Types Packs/Day [...] , or living with a partner? 12/31/2020 Overall Financial Resource Strain (CARDIA) Answe r [...] on file 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 DIRECTOR OF SEARCH ENGINE OPTIMIZATION Gender Identity Not on file Sexual Orientation Straight 01/23/2021 10 :16 PM CDT documented as of this encounter ED Notes * Wesley Washington RN - 01/01/2021 10:55 AM CDT Received x-ray discrepancy from Clinical Radiology reviewed with Dr. Ordonez states to call patient and inform of results and no other new orders. Contacted patient at number on record verbalized understanding of results and already had appt with his PMD this afternoon at 1500. Pt voices no other questions. Wesley Washington RN 01/01/21 1056 documented in this encounter Plan of Treatment Not on file documented as of this encounter Visit Diagnoses Not on filedocumented in this encounter Care Teams Cell Support Operator Relationship Specialty Start Date End Date Wesley Em MD PCP - General 09/30/16 12/01/21 Trey Pinedo MD [address] [place] [address] [place] [address] Consulting Physician Neurology 05/09/19 Dorinda Chavez, SAS DEVELOPER [address] [place] [address] Baccarat Dealer 12/30/20 01/26/21 documented as of this encounter
--- OUTSIDE RECORDS SUMMARY | 2024-06-18 18:11 | XMS_ITS | Encounter Summary ---
Author Organization [facility] Address [address] [place] [address] Care Team Providers Care Object Oriented Programmer Name Role Phone Wesley Em MD Primary Care Provider [phone] Trey Pinedo MD Unavailable [phone] Encounter Details Date Type Department Care Team (Late st Contact Info) Description 10/25/2019 Orders Only [facility] 2 [facility] [address] [place] [address] Wesley Em MD [address] [facility] [address] [place] [address] Screening for prostate cancer (Primary Dx); Personal history of nicotine dependence Social History Tobacco Use Types Packs/Day Years Used Date Smoking Tobacco: Former Cigarettes 0.1 50 1 879 - 2009 Smokeless Tobacco: Never Alcohol Use Standard Drinks/Week Comments No 0 (1 standard drink = 0.6 oz pur e alcohol) PHQ-2 Answer Date Recorded PHQ-2 Score 0 02/22/2019 Sex and Gender Information Value Date Recorded Sex Assigned at Not on file 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 PATTERN MOLDER Gender Identity Not on file Sexual Orientation Straight 01/23/2021 10 :16 PM CDT documented as of this encounter Plan of Treatment Not on file documented as of this encounter Results * PSA screen (10/25/2019 12:07 PM CDT) PSA-Total 2.47 <=6.20 ng/mL URVASHIMALINDA ALFREDA Comment: Interpretive Data ?AGE ? SEX ?REFERENCE INTERVAL 0 minutes-150 years ?Female ?None 0 minutes-49 years ? Male ?None ? 50-59 years ? Male ?0-3.90 ? 60-69 years ? Male ?0-5.40 ? 70-79 years ? Male ?0-6.20 ? 80-150 years ?Male ?0-6.20 Current interpretive data last revised 2018. Blood specimen (specimen) 10/25/2019 12:07 PM CDT 10/25/2019 5:04 PM CDT us Wesley Em MD LAB BLOOD ORDERABLES Final Res ult Performing Organization Address City/State/[facility] Co de Phone Number RUBENS [address] [facility] Department [place] [address] documented in this encounter Visit Diagnoses Diagnosis Screening for prostate cancer- Primary Special screening for malignant neoplasm of prostate Personal history of nicotine dependence documented in this encounter Care Teams Object Oriented Programmer Relationship Specialty Start Date End Date Wesley Em MD PCP - General 09/30/16 12/01/21 Trey Pinedo MD [address] [place] [address] [place] [address] Consulting Physician Neurology 05/09/19 documented as of this encounter
--- OUTSIDE RECORDS SUMMARY | 2024-06-18 18:11 | XMS_ITS | Encounter Summary ---
Author Organization [facility] Healthcare Address [address] [place] [address] Care Team Providers Care Consulting Systems Engineer Name Role Phone Wesley Em MD Primary Care Provider [phone] Trey Pinedo MD Unavailable [phone] Reason for Visit * Diagnostic Imaging (Routine) - Closed Specialty Diagnoses / Procedures Referred By Contdayami t Referred To Contact Diagnoses PAD (peripheral artery disease) (HCC) Procedures US Arterial Doppler Lower Extremity Bilateral US Arterial Doppler Upper Extremity Bilateral Wesley Em MD Phone: tel: fax: [address] [address] Referral ID Status Reason Start Date Expiration Date Visits Re quested Visits Authorized [id number] Closed 12/25/2020 01/24/2022 1 1 Encounter Details Date Type Department Care Team (Latest Contact Info) Description 02/05/2021 1:58 PM CDT - 02/05/2021 11:59 PM CDT Hospital Encounter [facility] [address] [place] [phone] Wesley Em MD [address] [place] [address] PAD (peripheral artery disease) (CMS/HCC) (HCC) Discharge Disposition: Discharge to [...] than three times a week 12/31/2020 Attends Congregation Services Not on file 12/31 Active Member [...] on file 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 Gender Identity Not on file Sexual Orientation [...] Encounter Note - Wesley Em MD - 02/05/2021 11:59 PM CDT Patient's arterial Doppler test of the lower extremities suggest blockage in some of the blood vessels to the lower extremities schedule the patient for CT angiogram AIF diagnosis peripheral arterialdisease documented in this encounter Plan of Treatment Not on file documented as of this encounter Procedures Procedure Name Priority Date/Time Associated Diagnosis Comments US ARTERIAL DOPPLER LOWER EXTREMITY BILATERAL Schedule Routine, Read Routine (OP Routine) 02/05/2021 2:50 PM CDT PAD (peripheral artery disease) (CMS/HCC) (HCC) documented in this encounter Results * US Arterial Doppler Lower Extremity Bilateral (02/05/2021 2:50 PM CDT) Anatomical Region Laterality Modality Vascular N/A Ultrasound 02/09/2021 8:12 AM CDT Narrative 02/09/2021 8:15 AM CDT EXAM DESCRIPTION: ?? US ARTERIAL DOPPLER LOWER EXTREMITY BILATERAL REASON FOR STUDY: ??PAD. Former smoker. Quit 2008. Stents in heart. Patient states he has no leg pain.Duration: N/A TECHNIQUE: ??Systolic pressures recorded upper lower extremities with ankle-brachial indices calculated. ??Spectral waveforms recorded at the dorsalis pedis and posterior tibial positions of the ankle. COMPARISON: ?? None available FINDINGS: Right leg: Right-sided ankle-brachial index is 1.12. Right-sided spectral Doppler waveforms demonstrate a dampened biphasic to monophasic pattern suggesting moderately severe large vessel arterial insufficiency at rest. Left leg: Left-sided ankle-brachial index is 0.97. Left-sided spectral Doppler waveform also demonstrates dampened biphasic to monophasic pattern suggesting large vessel arterial insufficiency at rest. IMPRESSION: ?? Dampened waveforms suggest moderately severe large vessel arterial insufficiency at rest bilateral lower extremities, despite normal ankle-brachial indices. Consider duplex Doppler, CT or MR arteriogram to better define. THIS IS AN ELECTRONICALLY VERIFIED FINAL REPORT 02/09/2021 8:15 AM - Electronically signed by Emil Pyle M.D. RB: SEBASTIÁN D: ??02/09/2021 8:15 AM T: ??02/09/2021 8:15 AM Report ID: [id number] Reading Location: ??[id number] Procedure Note Emil Pyle MD - 02/09/2021 EXAM DESCRIPTION: US ARTERIAL DOPPLER LOWER EXTREMITY BILATERAL REASON FOR STUDY: PAD. Former smoker. Quit 2008. Stents in heart. Patient states he has no leg pain.Duration: N/A TECHNIQUE: Systolic pressures recorded upper lower extremities with ankle-brachial indices calculated. Spectral waveforms recorded at the dorsalis pedis and posterior tibial positions of the ankle. COMPARISON: None available FINDINGS: Right leg: Right-sided ankle-brachial index is 1.12. Right-sided spectral Doppler waveforms demonstrate a dampened biphasic to monophasic pattern suggesting moderately severe large vessel arterial insufficiency at rest. Left leg: Left-sided ankle-brachial index is 0.97. Left-sided spectral Doppler waveform also demonstrates dampened biphasicto monophasic pattern suggesting large vessel arterial insufficiency at rest. IMPRESSION: Dampened waveforms suggest moderately severe large vessel arterial insufficiency at rest bilateral lower extremities, despite normal ankle-brachial indices. Consider duplex Doppler, CT or MR arteriogram to better define. THIS IS AN ELECTRONICALLY VERIFIED FINAL REPORT 02/09/2021 8:15 AM - Electronically signed by Emil Pyle M.D. RB: SEBASTIÁN Report ID: [id number] Reading Location: [id number] Wesley Em MD IMG US PROCEDURES Final Result documented in this encounter Visit Diagnoses Diagnosis PAD (peripheral artery disease) (HCC) Unspecified peripheral vascular disease documented in this encounter Care Teams Consulting Systems Engineer Relationship Specialty Start Date End Date Wesley Em MD PCP - General 09/30/16 12/01/21 Trey Pinedo MD [address] [place] [address] [address] [place] [address] Consulting Physician Neurology 05/09/19 documented as of this encounter
--- OUTSIDE RECORDS SUMMARY | 2024-06-18 18:11 | XMS_ITS | Encounter Summary ---
Author Organization [facility] Healthcare Address [address] [place] [address] Care Team Providers Care Health Sciences Manager Name Role Phone Wesley Em MD Primary Care Provider [phone] Trey Pinedo MD Unavailable [phone] Encounter Details Date Type Department Care Team (Late st Contact Info) Description 02/26/2020 10:25 AM CDT [address] [address] Wesley Em MD [address] [place] [id number] Type 2 diabetes mellitus with hyperlipidemia ([facility]/HCC) Discharge Disposition: Discharge to home or self care Social History Tobacco Use Types Packs/Day Years Used Date Smoking Tobacco: Former Cigarettes 0.1 50 1 139 - 2008 Smokeless Tobacco: Never Alcohol Use Standard Drinks/Week Comments No 0 (1 standard drink = 0.6 oz pur e alcohol) PHQ-2 Answer Date Recorded PHQ-2 Score 0 02/22/2019 Sex and Gender Information Value Date Recorded Sex Assigned at Not on file 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 Gender Identity Not on file Sexual Orientation Straight 01/23/2021 10 :16 PM CDT documented as of this encounter Discharge Disposition Disposition Code Departure Means Destination Discharge to home or self care documented in this encounter Plan of Treatment Not on file documented as of this encounter Procedures Procedure Name Priority Date/Time Associated Diagnosis Comments EGFR Routine 02/26/2020 10:29 AM CDT Type 2 diabetes mellitus with hyperlipidemia (CMS/HCC) DIFFERENTIAL AUTO Routine 02/26/2020 10: 29 AM CDT Type 2 diabetes mellitus with hyperlipidemia (CMS/HCC) CBC WITH AUTO DIFFERENTIAL Routine 02/26/2020 10:29 AM CDT Type 2 diabetes mellitus with hyperlipidemia (CMS/HCC) HEMOGLOBIN A1C Routine 02/26/2020 10:29 AM CDT Type 2 diabetes mellitus with hyperlipidemia (CMS/HCC) BASIC METABOLIC PANEL Routine 02/26/2020 10:29 AM CDT Type 2 diabetes mellitus with hyperlipidemia (CMS/HCC) ALBUMIN CREATININE RATIO, URINE Routine 02/26/2020 10:27 AM CDT Type 2 diabetes mellitus with hyperlipidemia (CMS/HCC) documented in this encounter Results * eGFR (02/26/2020 10:29 AM CDT) eGFR 63 mL/min/1.7 3 m2 [facility] ([facility]TY) Comment: Interpretive Data Reference Interval Normal ?>/= 90 mL/min/1.73m2 Mildly decreased* ? 60 - 89 mL/min/1.73m2 Mildly to moderately decreased ?45 - 59 mL/min/1.73m2 Moderately to severely decreased ??30 - 44 mL/min/1.73m2 Severely decreased ?15 - 29 mL/min/1.73m2 Kidney Failure ?< 15 ??mL/min/1.73m2 *Relative to young adult level If -Omani multiply value by 1.16. Estimated glomerular filtration rate is determined by [...] 70. Current interpretive data was last reviewed 2016. Blood specimen (specimen) 02/26/2020 10:29 AM CDT 02/26/2020 10:46 AM CDT us Wesley Em MD LAB BLOOD ORDERABLES Final Res ult [facility] ([facility]) [facility] [place] [address] * Differential, auto (02/26/2020 10:29 AM CDT) Neutrophil abs 4.7 1.7 - 6.5 [...] 0.1 K/cumm [facility] ([facility]) Neutrophil pct 69.6 % [facility] ([facility]) Comment: Interpretive [...] was last revised on 2017. Lymphocyte pct 16.9 % [facility] ([facility]) Comment: Interpretive Data Percent cell count reference ranges are not reported, since discordance with absolute values may lead to misinterpretation of CBC data. Current Interpretive Data was last revised on 2017. Monocyte pct 7.4 % [facility] ([facility]) Comment: Interpretive Data Percent cell count reference ranges are not reported, since discordance with absolute values may lead to misinterpretation of CBC data. Current Interpretive Data was last revised on 2017. Eosinophil pct 3.8 % [facility] ([facility]) Comment: Interpretive Data Percent cell count reference ranges are not reported, since discordance with absolute values may lead to misinterpretation of CBC data. Current Interpretive Data was last revised on 2017. Basophil pct 1.9 % [facility] ([facility]) Comment: Interpretive Data Percent cell count reference ranges are not reported, since discordance with absolute values may lead to misinterpretation of CBC data. Current Interpretive Data was last revised on 2017. Blood specimen (specimen) 02/26/2020 10:29 AM CDT 02/26/2020 10:46 AM CDT Wesley Em MD LAB BLOOD ORDERABLES Final Res ult Performing Organization Address [facility] de Phone Number [facility] ([facility]) [facility] [place] [address] * (ABNORMAL) Hemoglobin A1c (02/26/2020 10:29 AM CDT) Hgb A1C 5.9(H) 4.0 - 5.6 % [facility] ([facility]) Estimated Average Glucose 123 mg/dL [facility] ([facility]) Comment: The ADA recommends reporting an estimated Average Glucose (eAG) with all Hemoglobin A1c results using the equation derived from a study of 507 normal and diabetic adults. ??Minority populations were underrepresented and children were not included. ?? (Diabetes Care 31:1947-1321, 2008). ??The eAG is not equivalent to a fasting glucose. Blood specimen (specimen) 02/26/2020 10:29 AM CDT 02/26/2020 10:46 AM CDT Wesley Em MD LAB BLOOD ORDERABLES Final Res ult Performing Organization Address [facility]/ZIP Co de Phone Number [facility] ([facility]) [facility] [place] [address] * (ABNORMAL) CBC with auto differential (02/26/2020 [...] (BETTY) MCH 33.8(H) 27.1 - 33.3 pg [facility] ([facility]) MCHC 35.2 32.3 - 35.7 g/dL [facility] ([facility]) RDW CV 12.6 11.1 - 14.9 % [facility] ([facility]) RDW SD 44.3 35.7 - 48.1 fL [facility] ([facility]) NRBC abs 0.00 0.00 - 0.01 K/cumm [facility] ([facility]) Blood specimen (specimen) 02/26/2020 10:29 AM CDT 02/26/2020 10:46 AM CDT Wesley Em MD LAB BLOOD ORDERABLES Final Res ult [facility] ([facility]) [facility] [place] [address] * Basic metabolic panel (02/26/2020 10:29 AM CDT) Pathologist [facility] Sodium 135 135 - 145 mmol/L [facility] ([facility]) Potassium, pl 3.9 3.3 - 4.9 mmol/L [facility] ([facility]) Chloride 100 97 - 110 mmol/L [facility] ([facility]) CO2 27 22 - 32 mmol/L [facility] ([facility] Anion gap 8 2 - 15 mmol/L [facility] ([facility]) BUN 21 8 - 25 mg/dL [facility] ([facility]) Creatinine 1.15 0.80 - 1.30 mg/dL [facility] ([facility]) Glucose 153 70 - 199 mg/dL [facility] ([facility]) Comment: Interpretive Data Fasting [...] 2017. Calcium 8.9 8.5 - 10.3 mg/dL [facility] ([facility]) Blood specimen (specimen) 02/26/2020 10:29 AM CDT 02/26/2020 10:46 AM CDT us Wesley Em MD LAB BLOOD ORDERABLES Final Res ult [facility] ([facility]) [facility] [place] [address] * (ABNORMAL) Albumin Creatinine Ratio, Urine (02/26/2020 10:27 AM CDT) Albumin Ur 123.9 mg/L [facility] ([facility]) Comment: Interpretive Data No reference range established. Current interpretive data was last revised 2018. Testing performed by: [facility], [address] [place] [address], [place]., [address] Creatinine Ur 97.8 mg/dL [facility] ([facility]) Comment: Interpretive Data No reference range established. Current interpretive data was last revised 2018. Testing performed by: [facility], [address] [place] [address]., [address] Albumin Creatinine Ratio, Ur 127(H) 1 - 29 mg/g [facility] ([facility]ET[facility]) Comment:Testing performed by : [facility], [address] [place] [address], [place]., [address] Urine 02/26/2020 10:2 7 AM CDT 02/26/2020 1:58 PM CDT us Wesley Em MD LAB URINE ORDERABLES Final Res ult [facility] ([facility]) [facility] [place] [address] documented in this encounter Visit Diagnoses Diagnosis Type 2 diabetes mellitus with hyperlipidemia (HCC) documented in this encounter Care Teams Health Sciences Manager Relationship Specialty Start Date End Date Wesley Em MD PCP - General 09/30/16 12/01/21 Trey Pinedo MD [address] [place] [address] [address] [place] [address] Consulting Physician Neurology 05/09/19 documented as of this encounter
--- OUTSIDE RECORDS SUMMARY | 2024-06-18 18:11 | XMS_ITS | Encounter Summary ---
Author Organization [facility] Medical Group Address [address] [facility] [place] [address] Care Team Providers Care Geriatric Care Manager Name Role Phone Wesley Em MD Primary Care Provider [phone] Trey Pinedo MD Unavailable [phone] Encounter Details Date Type Department Care Team (Late st Contact Info) Description 02/10/2021 Orders Only [facility] [address] [facility] [address] [place] [address] Wesley Em MD [address] [facility] [address] [place] [address] Peripheral arterial disease (CMS/HCC) (HCC) (Primary Dx) Social History [...] on file 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
--- OUTSIDE RECORDS SUMMARY | 2024-06-18 18:11 | XMS_ITS | Encounter Summary ---
Author Organization [facility] Healthcare Address [address] [place] [address] Care Team Providers Care Paper Sample Clerk Name Role Phone Wesley Em MD Primary Care Provider [phone] Trey Pinedo MD Unavailable [phone] Reason for Referral * Diagnostic Imaging (Routine) - Closed Specialty Diagnoses / Procedures Referred By Jomar villela Referred To Contact Radiology Diagnoses History of tobacco abuse Encounter for screening for lung cancer Procedures CT Lung Cancer Screening Wesley Em MD Phone: tel: fax: [address] [address] Referral ID Status Reason Start Date Expiration Date Visits Re quested Visits Authorized [id number] Closed 08/27/2020 09/26/2021 1 1 RMATICS EDUCATOR Reason for Visit * Diagnostic Imaging (Routine) - Closed Specialty Diagnoses / Procedures Referred By Contac t Referred To Contact Radiology Diagnoses History of tobacco abuse Encounter for screening for lung cancer Procedures CT Lung Cancer Screening Wesley Em MD Phone: tel: fax: [address] [address] Referral ID Status Reason Start Date Expiration Date Visits Re quested Visits Authorized [id number] Closed 08/27/2020 09/26/2021 1 1 Encounter Details Date Type Department Care Team (Latest Contact Info) Description 09/09/2020 12:27 PM INFORMATICS EDUCATOR - 09/09/2020 11:59 PM INFORMATICS EDUCATOR Hospital Encounter [facility] Imaging and Radiology [address] [place] [address] Wesley Em MD [address] [place] [address] [place] [address] History of tobacco abuse; Encounter for screening for lung cancer Discharge Disposition: Discharge to home or self care Social History Tobacco Use Types Packs/Day Years Used Date Smoking Tobacco: Former Cigarettes 0.1 50 1 159 - 2008 Smokeless Tobacco: Never Alcohol Use Standard Drinks/Week Comments No 0 (1 standard drink = 0.6 oz pur e alcohol) PHQ-2 Answer Date Recorded PHQ-2 Total Score (If total score is 3 or more points, staff should administer the PHQ-9) 0 08/27/2020 Sex and Gender Information Value Date Recorded Sex Assigned at Not on file 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 INFORMATICS EDUCATOR Gender Identity Not on file Sexual [...] [address] (NexIUM) 40 mg capsule TAKE 1 CAPSULE BY MOUTH DAILY BEFORE BREAKFAST 90 capsule 3 03/24/2020 1 finasteride (PROSCAR) 5 mg tablet TAKE 1 [...] or self care documented in this encounter Nursing Notes * Padmaja Goins RN - 09/09/2020 1:00 PM CST Introduced myself and explained my role before [facility]. Assessed smoking history. He has been smoke free since 2008. RMATICS EDUCATOR documented in this encounter Miscellaneous Notes * Result Encounter Note - Wesley Em MD - 09/09/2020 1:35 PM CST Okay to leave a message CT scan looks good repeat 1 year RMATICS EDUCATOR documented in this encounter Plan of Treatment Not on file documented as of this encounter Procedures Procedure Name Priority Date/Time Associated Diagnosis Comments CT LUNG CANCER SCREENING Schedule Routine, Read Routine (OP Routine) 09/09/2020 1:02 PM INFORMATICS EDUCATOR History of tobacco abuse Encounter for screening for lung cancer documented in this encounter Results * CT Lung Cancer Screening (09/09/2020 1:02 PM INFORMATICS EDUCATOR) Anatomical Region Laterality Modality Chest N/A Computed Tomogra phy 09/09/2020 1:15 PM INFORMATICS EDUCATOR Impressions 09/09/2020 1:19 PM INFORMATICS EDUCATOR LUNG RADS CATEGORY 1 WITH NO SUSPICIOUS PULMONARY NODULES. COPD. ATHEROSCLEROSIS. CONTINUED [address]OW-DOSE CT SURVEILLANCE Electronically signed by: Shorty Carvalho M.D. Narrative 09/09/2020 1:19 PM INFORMATICS EDUCATOR EXAMINATION: CT LUNG CANCER SCREENING dated 09/09/2020 1:00 PM HISTORY: 74-year-old man lung cancer screening. 25 pack-year history, quit smoking July 2008 TECHNIQUE: Low-dose noncontrast spiral CT of multiplanar reconstructions FINDINGS: Comparison with multiple priors most recently dated 02/14/2019. Chairman & Ceo radiograph once again demonstrates tortuous aorta with [...] with multiple priors most recently dated 02/14/2019. Chairman & Ceo radiograph once again demonstrates tortuous aorta with [...] Em MD IMG CT PROCEDURES Final Result documented in this encounter Visit Diagnoses Diagnosis History of tobacco abuse Encounter for screening for lung cancer documented in this encounter Care Teams Paper Sample Clerk Relationship Specialty Start Date End Date Wesley Em MD PCP - General 09/30/16 12/01/21 Trey Pinedo MD [address] [facility] [address] [place] [address] Consulting Physician Neurology 05/09/19 documented as of this encounter
--- OUTSIDE RECORDS SUMMARY | 2024-06-18 18:11 | XMS_ITS | Encounter Summary ---
Author Organization [facility] Address [address] [facility] [address] [place] [address] Care Team Providers Care Oil Rigger Name Role Phone Wesley Em MD Primary Care Provider [phone] Trey Pinedo MD Unavailable [phone] Dorinda Chavez [facility] Unavailable [phone] Reason for Visit * Reason Comments Hospital Follow Up [facility] fell on 12/25/20 rib fractures Allergic Reaction right forearm at IV site Vomiting while eating X 2 day s Diverticulitis on antibiotics Encounter Details Date Type Department Care Team (Late st Contact Info) Description 01/01/2021 3:15 PM CDT Office Visit [facility] [address] [place] [address] Wesley Em MD [address] [place] [address] [address] [place] [address] Diverticulitis (Primary Dx); Body mass index (BMI) 28.0-28.9, adult; Closed fracture of multiple ribs of left side, initial encounter; Essential hypertension Social History Tobacco Use Types [...] on file 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 Gender Identity Not on file Sexual Orientation Straight 01/23/2021 10 :16 PM CDT documented as of this encounter Last Filed Vital Signs Vital Sign Reading Time Taken Comments Blood Pressure 110/70 01/01/2021 3:26 PM CDT Pulse 60 01/01/2021 3:26 PM CDT Temperature - - Respiratory Rate 20 01/01/2021 3:26 PM CDT Oxygen Saturation - - Inhaled Oxygen Concentration - - Weight 91.6 kg (202 lb) 01/01/2021 3:26 PM CDT Height 177.8 cm (5' 10 ) 01/01/2021 3:26 PM CDT Body Mass Index 28.98 01/01/2021 3:26 PM CDT documented in this encounter Ordered Prescriptions Prescription Sig Dispense Quantity Refills Last Filled Start Date End Date oxyCODONE-acetamin ophen (PERCOCET) 5-325 mg per tabletIndications: Pain Take 1 tablet by mouth every 6 (six) hours as needed for pain 20 tablet 01/01/2021 03/02/2021 documented in this encounter Progress Notes * Wesley Em MD - 01/01/2021 3:15 PM CDT Subjective/Objective Patient ID: Villa Zuniga is a 75 y.o. male. Chief Complaint Hospital Follow Up ([facility] fell on 12/25/20 rib fractures ), Allergic Reaction (right forearm at IV site), Vomiting (while eating X 2 days), and Diverticulitis ( on antibiotics) HPI Patient returns today with his son Westley he went to the emergency room with some pain is left ribcage area after falling in the bathtub no syncope slipped on his left ribcage fractured [address] scan revealed some early diverticulitis the patient was placed on antibiotic therapy in the emergency room as well released states he feels well now Review of Systems Vitals: 01/01/21 1526 BP: 110/70 BP Location: Left arm Patient Position: Sitting Pulse: 60 Resp: 20 Weight: 91.6 kg (202 lb) Height: 177.8 cm (5' 10 ) Physical Exam He is pleasant no distress lungs are clear cardiovascular regular 8 x 4 cm area of ecchymoses the left anterior lateral ribcage area tenderness underneath this area to palpation abdomen soft nontender extremities no edema Assessment/Plan Diagnoses and all orders for this visit: Diverticulitis (Primary) Disease process discussed with patient and son keep stools soft MiraLax daily recommended or other stool softener Body mass index (BMI) 28.0-28.9, adult Will continue working on weight loss Closed fracture of multiple ribs of left side, initial encounter Disease process discussed with patient and son pain medication time rest Essential hypertension Monitor blood pressure may need to cut back on medications slightly if he feels lightheaded will continue to monitor Other orders - oxyCODONE-acetaminophen (PERCOCET) 5-325 mg per tablet; Take 1 tablet by mouth every 6 (six) hours as needed for pain Side effects, risks, interactions reviewed with patient. [...] as of this encounter Visit Diagnoses Diagnosis Diverticulitis- Primary Diverticulitis of colon (without mention of hemorrhage) Body mass index (BMI) 28.0-28.9, adult Closed fracture of multiple ribs of left side, initial encounter Essential hypertension Unspecified essential hypertension documented in this encounter Discontinued Medications Medication Sig Discontinue Reason Start Date End Da te oxyCODONE-acetaminophen (PERCOCET) 5-325 mg per tabletIndications:Pain Take 1 tablet by mouth every 6 (six) hours as needed for pain Reorder 12/28/2020 01/01/2021 documented as of this encounter Care Teams Oil Rigger Relationship Specialty Start Date End Date Wesley Em MD PCP - General 09/30/16 12/01/21 Trey Pinedo MD [address] [facility] [facility] [place] [address] Consulting Physician Neurology 05/09/19 Dorinda Chavez, AIR CONDITIONING MECHANIC INDUSTRIAL [address] [facility] [address] [place] [address] Health Clinician 12/30/20 01/26/21 documented as of this encounter
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
--- OUTSIDE RECORDS SUMMARY | 2024-06-18 18:11 | XMS_ITS | Encounter Summary ---
Author Organization [facility] Address [address] [facility] [address] [place] [address] Care Team Providers Care Soaking Room Operator Name Role Phone Wesley Em MD Primary Care Provider [phone] Trey Pinedo MD Unavailable [phone] Encounter Details Date Type Department Care Team (Late st Contact Info) Description 09/01/2020 Orders Only [facility] [address] [facility] [address] [place] [address] Wesley Em MD [address] [place] [address] [address] [place] [address] Sleep disorder (Primary Dx); Polycythemia Social History Tobacco Use Types Packs/Day Years Used Date Smoking Tobacco: Former Cigarettes 0.1 50 1 659 - 2009 Smokeless Tobacco: Never Alcohol Use Standard Drinks/Week Comments No 0 (1 standard drink = 0.6 oz pur e alcohol) PHQ-2 Answer Date Recorded PHQ-2 Total Score (If total score is 3 or more points, staff should administer the PHQ-9) 0 08/27/2020 Sex and Gender Information Value Date Recorded Sex Assigned at Not on file 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 Gender Identity Not on file Sexual Orientation Straight 01/23/2021 10 :16 PM CDT documented as of this encounter Miscellaneous Notes * Addendum Note - Key Melara - 09/01/2020 3:27 PM CSTAddended by: KEY MELARA on: 09/02/2020 04:01 PM Modules accepted: Orders NT PRINT EXAMINER documented in this encounter Plan of Treatment Not on file documented as of this encounter Visit Diagnoses Diagnosis Sleep disorder- Primary Unspecified sleep disturbance Polycythemia Polycythemia, secondary documented in this encounter Care Teams Soaking Room Operator Relationship Specialty Start Date End Date Wesley Em MD PCP - General 09/30/16 12/01/21 Trey Pinedo MD [address] [facility] [place] [address] Consulting Physician Neurology 05/09/19 documented as of this encounter
--- OUTSIDE RECORDS SUMMARY | 2024-06-18 18:11 | XMS_ITS | Encounter Summary ---
Author Organization [facility] Address [address] [place] [address] Care Team Providers Care Regrinder Operator Name Role Phone Wesley Em MD Primary Care Provider [phone] Trey Pinedo MD Unavailable [phone] Dorinda Chavez [facility] Unavailable Encounter Details Date Type Department Care Team (Late st Contact Info) Description 01/26/2021 3:15 PM CDT Lab [facility] Physicians [address] [facility] [address] [place] [address] Chintan Figueroa MD [address] [place] [address] [address] [place] [address] Polycythemia Discharge Disposition: Discharge to home or self [...] have a drink containing alc ohol? 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 Gender Identity Not on file Sexual Orientation Straight 01/23/2021 10 :16 PM CDT documented as of this encounter Discharge Disposition Disposition Code Departure Means Destination Discharge to home or self care documented in this encounter Plan of Treatment Not on file documented as of this encounter Procedures Procedure Name Priority Date/Time Associated Diagnosis Comments EGFR Routine 01/26/2021 3:20 PM CDT Polycythemia DIFFERENTIAL AUTO Routine 01/26/2021 3:2 0 PM CDT Polycythemia CBC WITH AUTO DIFFERENTIAL Routine 01/26/2021 3:20 PM CDT Polycythemia COMPREHENSIVE METABOLIC PANEL Routine 01/26/2021 3:20 PM CDT Polycythemia documented in this encounter Results * eGFR (01/26/2021 3:20 PM CDT) eGFR 64 mL/min/1.7 3 m2 [facility] ([facility]) Comment: Interpretive Data [...] was last reviewed 2020 Blood specimen (specimen) 01/26/2021 3:20 PM CDT 01/26/2021 3:33 PM CDT us Chintan Figueroa MD LAB BLOOD ORDERABLES Final Re sult [facility] ([facility]) [address] [facility] Department of Laboratories [place], [place] [id number] * Differential, auto (01/26/2021 3:20 PM CDT) Neutrophil abs 4.4 1.7 - 6.5 K/cumm [facility] ([facility]) Imm gran abs Not Measured 0.0 - 0.1 K/cumm [facility] ([facility]) Lymphocyte abs 1.5 0.8 - 3.3 K/cumm [facility] ([facility]) Monocyte abs 0.7 0.2 - 0.8 K/cumm [facility] ([facility]) Eosinophil abs 0.3 0.0 - 0.5 K/cumm [facility] ([facility]) Basophil abs 0.1 0.0 - 0.1 K/cumm [facility] ([facility]) Neutrophil pct 63.0 % [facility] ([facility]) Comment: Interpretive [...] was last revised on 2017. Lymphocyte pct 21.7 % [facility] ([facility]) Comment: Interpretive Data Percent cell count reference ranges are not reported, since discordance with absolute values may lead to misinterpretation of CBC data. Current Interpretive Data was last revised on 2017. Monocyte pct 10.0 % [facility] ([facility]) [...] was last revised on 2017. Basophil pct 1.0 % [facility] ([facility]) Comment: Interpretive Data Percent cell count reference ranges are not reported, since discordance with absolute values may lead to misinterpretation of CBC data. Current Interpretive Data was last revised on 2017. Blood specimen (specimen) 01/26/2021 3:20 PM CDT 01/26/2021 3:21 PM CDT Chintan Figueroa MD LAB BLOOD ORDERABLES Final Re sult [facility] ([facility]) [address] [facility] Department [place] [address] * (ABNORMAL) CBC with auto differential (01/26/2021 3:20 PM CDT) Pathologist [facility] WBC 7.0 3.8 - 9.9 K/cumm [facility] ([facility]) Hgb 19.8(H) 13.0 - 17.5 g/dL [facility] ([facility]) Hct 53.4(H) 38.9 - 50.3 % [facility] ([facility]) Plt 141(L) 150 - 400 K/cumm [facility] ([facility]) MPV 10.5 9.1 - 12.3 fL [facility] ([facility]) RBC 5.79 4.30 - 5.80 M/cumm [facility] ([facility]) MCV 92.2 81.3 - 96.4 fL [facility] ([facility]) MCH 34.2(H) 27.1 - 33.3 pg [facility] ([facility]) MCHC 37.1(H) 32.3 - 35.7 g/dL [facility] ([facility]) RDW CV 13.1 11.1 - 14.9 % [facility] ([facility]) RDW SD 43.1 35.7 - 48.1 fL [facility] ([facility]) NRBC abs Not Measured 0.00 - 0.01 K/cumm [facility] ([facility]) Blood specimen (specimen) 01/26/2021 3:20 PM CDT 01/26/2021 3:21 PM CDT us Chintan Figueroa MD LAB BLOOD ORDERABLES Final Re sult [facility] ([facility]) 1 [facility] [place] [address] * Comprehensive metabolic panel (01/26/2021 3:20 PM CDT) [facility] Sodium 139 135 - 145 mmol/L [facility] ([facility]) Potassium, pl 4.1 3.3 - 4.9 mmol/L [facility] ([facility]) Chloride 103 97 - 110 mmol/L [facility] ([facility]) CO2 28 22 - 32 mmol/L [facility] ([facility]) Anion gap 8 2 - 15 mmol/L [facility] ([facility]) BUN 20 8 - 25 mg/dL [facility] ([facility]) Creatinine 1.13 0.80 - 1.30 mg/dL [facility] ([facility]) Glucose 113 70 - 199 mg/dL [facility] ([facility]) [...] interpretive data was last revised 2017. Calcium 9.3 8.5 - 10.3 mg/dL [facility] ([facility]) Bilirubin, total 0.9 0.1 - 1.2 mg/dL [facility] ([facility]) Protein, pl 6.9 6.5 - 8.5 g/dL [facility] ([facility]) Albumin 4.3 3.5 - 5.0 g/dL [facility] ([facility]) Alk phos 118 40 - 130 Units/L [facility] ([facility]) ALT 21 7 - 55 Units/L [facility] ([facility]) AST 16 10 - 50 Units/L [facility] ([facility]) Blood specimen (specimen) 01/26/2021 3:20 PM CDT 01/26/2021 3:33 PM CDT us Chintan Figueroa MD LAB BLOOD ORDERABLES Final Re sult [facility] ([facility]) [address] [facility] Department [place] [address] documented in this encounter Visit Diagnoses Diagnosis Polycythemia Polycythemia, secondary documented in this encounter Care Teams Regrinder Operator Relationship Specialty Start Date End Date Wesley Em MD PCP - General 09/30/16 12/01/21 Trey Pinedo MD [address] [place] [address] [address] [facility] [place] [address] Consulting Physician Neurology 05/09/19 Dorinda Chavez, [address] [place] [address] Mail List Librarian 12/30/20 01/26/21 documented as of this encounter
--- OUTSIDE RECORDS SUMMARY | 2024-06-18 18:11 | XMS_ITS | Encounter Summary ---
Author Organization [facility] Medical Group Address [address] [place] [address] Care Team Providers Care Inventory Planner Name Role Phone Wesley Em MD Primary Care Provider [phone] Trey Pinedo MD Unavailable [phone] Encounter Details Date Type Department Care Team (Late st Contact Info) Description 02/09/2021 Telephone [facility] 2 [facility] [address] [place] [address] Wesely Em MD [address] [place] [address] [address] [place], [place] [id number] Social History Tobacco Use Types Packs/Day Years [...] on file 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 Gender Identity Not on file Sexual Orientation Straight 01/23/2021 10 :16 PM CDT documented as of this encounter Miscellaneous Notes * Telephone Encounter - Martha Sutton MA - 02/10/2021 4:03 PM CDT Patient's son Ian on HIPAA aware, sent to referrals * Telephone Encounter - Martha Sutton MA - 02/09/2021 11:20 AM CDT LMOM for abdullahi Sosa on HIPAA to call office * Telephone Encounter - Martha Sutton MA - 02/09/2021 11:19 AM CDT ----- Message from Wesley Em MD sent at 02/09/2021 8:25 AM CDT ----- Patient's arterial Doppler test of the lower extremities suggest blockage in some of the blood vessels to the lower extremities schedule the patient for CT angiogram AIF diagnosis peripheral arterialdisease documented in this encounter Plan of Treatment Not on file documented as of this encounter Visit Diagnoses Not on filedocumented in this encounter Care Teams Inventory Planner Relationship Specialty Start Date End Date Wesley Em MD PCP - General 09/30/16 12/01/21 Trey Pinedo MD [address] [place] [address] DR FARRELL [facility] [place] [address] Consulting Physician Neurology 05/09/19 documented as of this encounter
--- OUTSIDE RECORDS SUMMARY | 2024-06-18 18:11 | XMS_ITS | Encounter Summary ---
Author Organization [facility] Medical Group Address [address] [facility] [address] [place] [address] Care Team Providers Care Plane Tender Name Role Phone Wesley Em MD Primary Care Provider [phone] Trey Pinedo MD Unavailable [phone] Reason for Visit * Reason Comments Forms/questionnaires for taxes Encounter Details Date Type Department Care Team (Late st Contact Info) Description 05/11/2020 8:15 AM BOARD RUNNER Office Visit [facility] [address] [facility] [address] [place] [address] Wesley Em MD [address] [address] [address] [place] [address] Essential hypertension (Primary Dx); Body mass index (BMI) 29.0-29.9, adult; Type 2 diabetes mellitus with hyperlipidemia ([facility]) Social History Tobacco Use Types Packs/Day Years Used Date Smoking Tobacco: Former Cigarettes 0.1 50 1 959 - 2009 Smokeless Tobacco: Never Alcohol Use Standard Drinks/Week Comments No 0 (1 standard drink = 0.6 oz pur e alcohol) PHQ-2 Answer Date Recorded PHQ-2 Total Score (If total score is 3 or more points, staff should administer the PHQ-9) 0 05/11/2020 Sex and Gender Information Value Date Recorded Sex Assigned at Not on file Legal 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 Male 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 Gender Identity Not on file Sexual Orientation Straight 01/23/2021 10 :16 PM CDT documented as of this encounter Last Filed Vital Signs Vital Sign Reading Time Taken Comments Blood Pressure 160/100 05/11/2020 8:13 AM BOARD RUNNER Pulse 80 05/11/2020 8:13 AM BOARD RUNNER Temperature - - Respiratory Rate 20 05/11/2020 8:13 AM BOARD RUNNER Oxygen Saturation - - Inhaled Oxygen Concentration - - Weight 94.8 kg (209 lb) 05/11/2020 8:13 AM BOARD RUNNER Height 177.8 cm (5' 10 ) 05/11/2020 8:13 AM BOARD RUNNER Body Mass Index 29.99 05/11/2020 8:13 AM BOARD RUNNER documented in this encounter Progress Notes * Wesley Em MD - 05/11/2020 8:15 AM CST Subjective/Objective Patient ID: Villa Zuniga is a 74 y.o. male. 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 and needs a form filled out some stating that the he has been disabled and that it is going to continue for more than 12 months and is not able to partake in the same occupation his previously which she is not could be able do with his knee replacement Review of Systems Vitals: 05/11/20 0813 BP: 160/100 BP Location: Left arm Patient Position: Sitting Pulse: 80 Resp: 20 Weight: 94.8 kg (209 lb) Height: 177.8 cm (5' 10 ) Physical Exam Blood pressure confirmed lungs clear cardiovascular regular abdomen soft nontender Assessment/Plan Diagnoses and all orders for this visit: Essential hypertension (Primary) Body mass index (BMI) 29.0-29.9, adult Type 2 diabetes mellitus with hyperlipidemia (CMS/HCC) He states his blood pressure is high close he is nervous anxious he will check it more often at home call for elevations above 130/80 doubt take his medications more compliantly which he admits he has not been doing very much of will follow-up with me as previously directed his form was filled out will work harder on diet exercise Side effects, risks, interactions reviewed with patient. Indications for testing discussed. Any further problems to contact us. He was told what to look out for and verbalized understanding. The patient was given the opportunity to have all questions answered today and was in agreement with the plan of care. D RUNNER documented in this encounter Plan of Treatment Not on file documented as of this encounter Visit Diagnoses Diagnosis Essential hypertension- Primary Unspecified essential hypertension Body mass index (BMI) 29.0-29.9, adult Type 2 diabetes mellitus with hyperlipidemia (HCC) documented in this encounter Care Teams Plane Tender Relationship Specialty Start Date End Date Wesley Em MD PCP - General 09/30/16 12/01/21 Trey Pinedo MD [address] [facility] [address] F[facility]RELL [facility] [place] [address] Consulting Physician Neurology 05/09/19 documented as of this encounter
--- OUTSIDE RECORDS SUMMARY | 2024-06-18 18:11 | XMS_ITS | Encounter Summary ---
Author Organization [facility] Medical Group Address [address] [address] Care Team Providers Care Supervisor Frame Sample And Pattern Name Role Phone Wesley Em MD Primary Care Provider [phone] Trey Pinedo MD Unavailable [phone] Dorinda Chavez [facility] Unavailable [phone] Reason for Referral * Consultation (Routine) - Closed Specialty Diagnoses / Procedures Referred By Jomar villela Referred To Contact Oncology Diagnoses Polycythemia Wesley Em MD Phone: tel: fax: Praful Davila MD [address] [place] [address] Phone: tel: fax: Referral ID Status Reason Start Date Expiration Date V isits Requested Visits Authorized [id number] Closed Specialty Services Required 01/01/2021 01/31/2022 1 1 Question Answer Is this referral for Breast Health Multi-Disciplinary Clinic? No Please select the performing region: [facility] (All Locations) [[id number]] Please select the performing department: [facility] IM ONC [facility] [id number] [[id number]] To provider: PRAFUL DAVILA [[id number]] # of visits: 1 Comments Dx: polycythemia Encounter Details Date Type Department Care Team (Late st Contact Info) Description 01/01/2021 Orders Only [facility] 2 [facility] [address] [place] [address] Wesley Em MD 2 [facility] [address] [place] [address] Polycythemia (Primary Dx) Social History Tobacco Use [...] than three times a week 12/31/2020 Attends [employer]reg[employer] Services Not on file 12/31 Active Member [...] on file 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 Gender Identity Not on file Sexual Orientation Straight 01/23/2021 10 :16 PM CDT documented as of this encounter Plan of Treatment Scheduled Referrals Name Type Priority Associated Diagnoses Order Schedule Ambulatory referral to Oncology Outpatient Referral Routine Polycythemia Expected: 01/01/2021 (Approximate), Expires: 01/01/2022 documented as of this encounter Visit Diagnoses Diagnosis Polycythemia- Primary Polycythemia, secondary documented in this encounter Care Teams Supervisor Frame Sample And Pattern Relationship Specialty Start Date End Date Wesley Em MD PCP - General 09/30/16 12/01/21 Trey Pinedo MD [address] [facility] [address] [place] [address] Consulting Physician Neurology 05/09/19 Dorinda Chavez, RIDES SUPERVISOR [address] [place] [address] Wireless Development Manager 12/30/20 01/26/21 documented as of this encounter
--- OUTSIDE RECORDS SUMMARY | 2024-06-18 18:11 | XMS_ITS | Encounter Summary ---
Author Organization [facility] Medical Group Address [address] [facility] [address] [place] [address] Care Team Providers Care Stuffing Machine Operator Name Role Phone Wesley Em MD Primary Care Provider [phone] Trey Pinedo MD Unavailable [phone] Encounter Details Date Type Department Care Team (Late st Contact Info) Description 10/25/2019 Telephone [facility] 2 [facility] [address] [place] [address] Wesley Em MD [address] [place] [address] [address] [place] [address] Social History Tobacco Use Types Packs/Day Years Used Date Smoking Tobacco: Former Cigarettes 0.1 50 1 269 - 2009 Smokeless Tobacco: Never Alcohol Use Standard Drinks/Week Comments No 0 (1 standard drink = 0.6 oz pur e alcohol) PHQ-2 Answer Date Recorded PHQ-2 Score 0 02/22/2019 Sex and Gender Information Value Date Recorded Sex Assigned at Not on file Legal Sex Male 6:[address] DEVELOPER Gender Identity Not on file Sexual Orientation Straight 01/23/2021 10 :16 PM CDT documented as of this encounter Miscellaneous Notes * Telephone Encounter - Dayanara Stoll - 10/28/2019 1:35 PM CDT Pt aware. * Telephone Encounter - Martha Sutton MA - 10/28/2019 9:11 AM CDT LMOM to call office * Telephone Encounter - Wesley Em MD - 10/28/2019 7:55 AM CDT Okay to keep his appointments the way they are * Telephone Encounter - Barbara Musa MA - 10/28/2019 7:42 AM CDT jr * Telephone Encounter - Cindy Young - 10/25/2019 12:23 PM CDT JR pt / ok to hold til Monday per pt Per checkout notes wants pt to do us carotid doppler and low dose ct on same day. Pt is confused and questioning if heshould move up both appts so he can do in january Or keep appts where they are at? Pt low dose ct is already sched for 02/16/2020, and his us carotid doppler is already sched for 05/20/2020. Pt was wanting to keep where they are if he can. Please advise documented in this encounter Plan of Treatment Not on file documented as of this encounter Visit Diagnoses Not on filedocumented in this encounter Care Teams Stuffing Machine Operator Relationship Specialty Start Date End Date Wesley Em MD PCP - General 09/30/16 12/01/21 Trey Pinedo MD 4 [facility] [address] [facility] [place] [address] Consulting Physician Neurology 05/09/19 documented as of this encounter
--- OUTSIDE RECORDS SUMMARY | 2024-06-18 18:11 | XMS_ITS | Encounter Summary ---
Author Organization [facility] Medical Group Address [address] [place] [address] Care Team Providers Care Manager Development Name Role Phone Wesley Em MD Primary Care Provider [phone] Trey Pinedo MD Unavailable [phone] Reason for Visit * Reason Comments Edema Discuss Test Results Encounter Details Date Type Department Care Team (Late st Contact Info) Description 12/25/2020 1:45 PM CDT Office Visit [place] [facility] [address] [facility] [address] [place] [address] Wesley Em MD [address] [place] [address] [address] [place] [address] PAD (peripheral artery disease) (CMS/HCC) (Primary Dx); BMI 28.0-28.9,adult; Essential hypertension; Fatigue, unspecified type; Hypersomnia Social History Tobacco Use Types Packs/Day [...] file 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 Gender Identity Not on file Sexual Orientation Straight 01/23/2021 10 :16 PM CDT documented as of this encounter Last Filed Vital Signs Vital Sign Reading Time Taken Comments Blood Pressure 128/70 12/25/2020 1:35 PM CDT Pulse 70 12/25/2020 1:35 PM CDT Temperature - - Respiratory Rate 18 12/25/2020 1:35 PM CDT Oxygen Saturation - - Inhaled Oxygen Concentration - - Weight 91.3 kg (201 lb 4.8 oz) 12/25/2020 1:35 P M CDT Height 177.8 cm (5' 10 ) 12/25/2020 1:35 PM CDT Body Mass Index 28.88 12/25/2020 1:35 PM CDT documented in this encounter Progress Notes * Wesley Em MD - 12/25/2020 1:45 PM CDT Subjective/Objective Patient ID: Villa Zuniga is a 75 y.o. male. Chief Complaint Edema and Discuss Test Results HPI Patient seen today with his son his son states that he is taking over lot other medication supervision for both Davidson and his Summer since his mom bed he has had quite a bit of problems with compliance That concerned about sleep apnea and the patient would like to see a sleep doctor in [place] though that his son knows he has periods hypersomnolence throughout the day quite a bit of snoring and periods of apnea at night witnessed by family members mobile naps during the day sometimes morning headaches overall fatigue Sons also concerned about his circulation in his father's legs. On his feet her dependent this quite a bit of bluish coloration of his feet and the patient was a heavy smoker in the past patient did have his lung cancer screening CT scan August 2020 which looked good a repeat on a yearly basis Review of Systems Vitals: 12/25/20 1335 BP: 128/70 BP Location: Right arm Patient Position: Sitting Pulse: 70 Resp: 18 Weight: 91.3 kg (201 lb 4.8 oz) Height: 177.8 cm (5' 10 ) Physical Exam Lungs are clear cardiovascular regular abdomen is obese soft nontender pedal pulses diminished in both lower extremities bilaterally in the feet varicose veins are noted in the lower extremities fromthe knees down trace edema bilaterally no cords Homans signs negative some bluish discoloration of the feet that clears with elevation Assessment/Plan Diagnoses and all orders for this visit: PAD (peripheral artery disease) (CMS/HCC) (Primary) With his extensive smoking history probably does have some peripheral arterial disease arterial Dopplers will be obtained he does have some varicosities in his probable venous insufficiency of buts mild recommend he continue wearing support is stocking BMI 28.0-28.9,adult Keep work on the weight through caloric restriction and daily exercise carb counting recommended 50carbs less per meal Essential hypertension Good control with current regimen will continue same Fatigue, unspecified type Maybe related to sleep apnea sleep study consultation will be requested the patient be refer to sleep specialist at [facility] per son's wishes his son lives close by to that hospital Hypersomnia Recommend sleep apnea testing sleep study will discussed with sleep specialist Side effects, risks, interactions reviewed with patient. [...] disease) (HCC)- Primary Unspecified peripheral vascular disease BMI 28.0-28.9,adult Essential hypertension Unspecified essential hypertension Fatigue, unspecified type Hypersomnia Hypersomnia, unspecified documented in this encounter Care Teams Manager Development Relationship Specialty Start Date End Date Wesley Em MD PCP - General 09/30/16 12/01/21 Trey Pinedo MD [address] [place] [address] DR [facility] [place] [facility] [place] [address] Consulting Physician Neurology 05/09/19 documented as of this encounter
--- OUTSIDE RECORDS SUMMARY | 2024-06-18 18:11 | XMS_ITS | Encounter Summary ---
Author Organization [facility] Healthcare Address [address] [place] [address] Care Team Providers Care Leather Colorer Name Role Phone Wesley Em MD Primary Care Provider Trey Pinedo MD Unavailable [phone] Encounter Details Date Type Department Care Team (Late st Contact Info) Description 10/25/2019 5:00 PM CDT Lab [address] [address] Screening for prostate cancer Social History Tobacco Use Types Packs/Day Years Used Date Smoking Tobacco: Former Cigarettes 0.1 50 1 079 - 2008 Smokeless Tobacco: Never Alcohol Use Standard Drinks/Week Comments No 0 (1 standard drink = 0.6 oz pur e alcohol) PHQ-2 Answer Date Recorded PHQ-2 Score 0 02/22/2019 Sex and Gender Information Value Date Recorded Sex Assigned at Not on file 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 SEX [...] LAB BLOOD ORDERABLES Final Res ult RUBENS [address] [facility] [place] [address] documented in this encounter Visit Diagnoses Diagnosis Screening for prostate cancer Special screening for malignant neoplasm of prostate documented in this encounter Care Teams Leather Colorer Relationship Specialty Start Date End Date Wesley Em MD PCP - General 09/30/16 12/01/21 Trey Pinedo MD [address] [place] [address] [place] [address] Consulting Physician Neurology 05/09/19 documented as of this encounter
--- OUTSIDE RECORDS SUMMARY | 2024-06-18 18:11 | XMS_ITS | Encounter Summary ---
Author Organization [facility] Medical Group Address [address] [facility] [address] [place] [address] Care Team Providers Care Extractor Machine Operator Name Role Phone Wesley Em MD Primary Care Provider [phone] Trey Pinedo MD Unavailable [phone] Encounter Details Date Type Department Care Team (Late st Contact Info) Description 09/02/2020 Telephone [facility] 2 [facility] [address] [place] [address] Wesley Em MD [address] [place] [address] [address] [place] [address] Social History Tobacco Use Types Packs/Day Years Used Date Smoking Tobacco: Former Cigarettes 0.1 50 1 709 - 2009 Smokeless Tobacco: Never Alcohol Use Standard Drinks/Week Comments No 0 (1 standard drink = 0.6 oz pur e alcohol) PHQ-2 Answer Date Recorded PHQ-2 Total Score (If total score is 3 or more points, staff should administer the PHQ-9) 0 08/27/2020 Sex and Gender Information Value Date Recorded Sex Assigned at Not on file Legal Sex Male 6:[address] Gender Identity Not on file Sexual Orientation Straight 01/23/2021 10 :16 PM CDT documented as of this encounter Miscellaneous Notes * Telephone Encounter - Luz Cleary - 09/03/2020 12:06 PM CST Noted thank you MANAGER * Telephone Encounter - Martha Sutton MA - 09/03/2020 11:[address]NA[address] referrals MANAGER * Telephone Encounter - Wesley Em MD - 09/03/2020 8:25 AM CST Progress note updated from August 27 MANAGER * Telephone Encounter - Meaghan Graham MA - 09/03/2020 7:[address] Jr MANAGER * Telephone Encounter - Salena Leal MA - 09/02/2020 4:[address]NAGER JR- Per [facility] they stated that you will need to addend your 08/27/20 office note to include that information. They said that this is per insurance guidelines. MANAGER * Telephone Encounter - Barbara Musa MA - 09/02/2020 4:[address]NA[address] ref MANAGER * Telephone Encounter - Wesley Em MD - 09/02/2020 4:19 PM CST Patient is being evaluated for polycythemia sleep apnea is in the differential diagnosis the patient does have snoring daytime somnolence and wakes up un refreshed MANAGER * Telephone Encounter - Barbara Musa MA - 09/02/2020 4:[address]NA[address] jr MANAGER * Telephone Encounter - Luz Cleary - 09/02/2020 4:03 PM CST Anay from [facility] called stating the office visit form 2-25-21 does not discuss anythingabout a sleep study, [facility] sees the message to order one but when [facility] gets audited there has to be an office visit discussing it. Please advise MANAGER documented in this encounter Plan of Treatment Not on file documented as of this encounter Visit Diagnoses Not on filedocumented in this encounter Care Teams Extractor Machine Operator Relationship Specialty Start Date End Date Wesley Em MD PCP - General 09/30/16 12/01/21 Trey Pinedo MD [address] [facility] [place] [address] Consulting Physician Neurology 05/09/19 documented as of this encounter
--- OUTSIDE RECORDS SUMMARY | 2024-06-18 18:11 | XMS_ITS | Encounter Summary ---
Author Organization [facility] Address [address] [place] [address] Care Team Providers Care Compliance Director Name Role Phone Wesley Em MD Primary Care Provider Trey Pinedo MD Unavailable [phone] Reason for Visit * Reason Comments Coronary Artery Disease Hypertension Diabetes Encounter Details Date Type Department Care Team (Late st Contact Info) Description 02/26/2020 9:00 AM CDT Office Visit [facility] 2 [facility] [address] [place] [address] Wesley Em MD [address] [place] [address] [address] [place] [address] Coronary artery disease involving [place] coronary artery of [place] heart without angina pectoris (Primary Dx); Body mass index (bmi) 29.0-29.9, adult; Essential hypertension; Mixed hyperlipidemia Social History Tobacco [...] on file 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 Gender Identity Not on file Sexual Orientation Straight 01/23/2021 10 :16 PM CDT documented as of this encounter Last Filed Vital Signs Vital Sign Reading Time Taken Comments Blood Pressure 130/80 02/26/2020 9:11 AM CDT Pulse 64 02/26/2020 9:11 AM CDT Temperature - - Respiratory Rate 20 02/26/2020 9:11 AM CDT Oxygen Saturation - - Inhaled Oxygen Concentration - - Weight 94.3 kg (208 lb) 02/26/2020 9:11 AM CDT Height 177.8 cm (5' 10 ) 02/26/2020 9:11 AM CDT Body Mass Index 29.84 02/26/2020 9:11 AM CDT documented in this encounter Ordered Prescriptions Prescription Sig Dispense Quantity Refills Last Filled Start Date End Date pantoprazole DR (PROTONIX) 40 mg EC tablet Take 1 tablet (40 mg total) by mouth daily 90 tablet 3 02/26/2020 03/24/2020 cloNIDine (CATAPRES) 0.1 mg tablet Take 1 tablet (0.1 mg total) by mouth 2 (two) times a day 180 tablet 3 02/26/2020 08/27/2020 documented in this encounter Progress Notes * Wesley Em MD - 02/26/2020 9:00 AM CDT Subjective/Objective Patient ID: Villa Zuniga is a 74 y.o. male. Chief Complaint Coronary Artery Disease, Hypertension, and Diabetes HPI 74-year-old seen today for follow-up he is having no chest pain orthopnea no PND he is take his blood pressure medication compliantly like to his change from clonidine patch to the tablets due to cost He is on Nexium and Plavix will switch him to Protonix instead of the Nexium rationale for this discussed with patient Review of Systems Vitals: 02/26/20 0911 BP: 130/80 BP Location: Left arm Patient Position: Sitting Pulse: 64 Resp: 20 Weight: 94.3 kg (208 lb) Height: 177.8 cm (5' 10 ) Physical Exam He is pleasant no distress lungs clear cardiovascular regular abdomen soft nontender blood pressureconfirmed Assessment/Plan Diagnoses and all orders for this visit: Coronary artery disease involving [place] coronary artery of [place] heart without angina pectoris (Primary) Body mass index (bmi) 29.0-29.9, adult Essential hypertension Mixed hyperlipidemia Other orders - cloNIDine (CATAPRES) 0.1 mg tablet; Take 1 tablet (0.1 mg total) by mouth 2 (two) times a day - pantoprazole DR (PROTONIX) 40 mg EC tablet; Take 1 tablet (40 mg total) by mouth daily Will do a couple blood pressure changes today. The Catapres patch when he runs out start using the clonidine pills in place Will will replace the Nexium with Protonix because of his use of Plavix and possible interaction between Plavix and other PPI Side effects, risks, interactions reviewed with patient. [...] of this encounter Visit Diagnoses Diagnosis Coronary artery disease involving [place] coronary artery of [place] heart without angina pectoris- Primary Body mass index (bmi) 29.0-29.9, adult Essential hypertension Unspecified essential hypertension Mixed hyperlipidemia documented in this encounter Discontinued Medications Medication Sig Discontinue Reason Start Date End Da te cloNIDine (CATAPRES-TTS) 0.1 mg/24 hrIndications:hypertens ion Place 0.1 mg on the skin once a week 11/20/2019 02/26/[address] (NexIUM) 40 mg capsule Take 1 capsule (40 mg total) by mouth daily before breakfast 08/13/2019 02/26/2020 documented as of this encounter Care Teams Compliance Director Relationship Specialty Start Date End Date Wesley Em MD PCP - General 09/30/16 12/01/21 Trey Pinedo MD [address] [facility] [place] [address] Consulting Physician Neurology 05/09/19 documented as of this encounter
--- OUTSIDE RECORDS SUMMARY | 2024-06-18 18:11 | XMS_ITS | Encounter Summary ---
Author Organization [facility] Address [address] [place] [address] Care Team Providers Care Boat Detailer Name Role Phone Wesley Em MD Primary Care Provider [phone] Trey Pinedo MD Unavailable [phone] Encounter Details Date Type Department Care Team (Late st Contact Info) Description 10/25/2019 Telephone [facility] 2 [facility] [address] [place] [address] Wesley Em MD [address] [place] [address] [address] [place] [address] Social History Tobacco Use Types Packs/Day Years Used Date Smoking Tobacco: Former Cigarettes 0.1 50 1 919 - 2009 Smokeless Tobacco: Never Alcohol Use Standard Drinks/Week Comments No 0 (1 standard drink = 0.6 oz pur e alcohol) PHQ-2 Answer Date Recorded PHQ-2 Score 0 02/22/2019 Sex and Gender Information Value Date Recorded Sex Assigned at Not on file 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 linn doc 80 GI specialist follow-up [facility] documented in this encounter Plan of Treatment Not on file documented as of this encounter Visit Diagnoses Not on filedocumented in this encounter Care Teams Boat Detailer Relationship Specialty Start Date End Date Wesley Em MD PCP - General 09/30/16 12/01/21 Trey Pinedo MD [address] [place] [address] [place] [address] Consulting Physician Neurology 05/09/19 documented as of this encounter
--- OUTSIDE RECORDS SUMMARY | 2024-06-18 18:11 | XMS_ITS | Encounter Summary ---
Author Organization [facility] Address [address] [place] [address] Care Team Providers Care Adjunct Business Instructor Name Role Phone Wesley Em MD Primary Care Provider [phone] Trey Pinedo MD Unavailable [phone] Reason for Referral * Diagnostic Imaging (Routine) - Closed Specialty Diagnoses / Procedures Referred By Contac t Referred To Contact Radiology Diagnoses History of tobacco abuse Encounter for screening for lung cancer Procedures CT Lung Cancer Screening Wesley Em MD Phone: tel: fax: [address] [address] Referral ID Status Reason Start Date Expiration Date Visits Re quested Visits Authorized [id number] Closed 08/27/2020 09/26/2021 1 1 LIFE OFFICER Encounter Details Date Type Department Care Team (Late st Contact Info) Description 08/27/2020 Orders Only [facility] 2 [facility] [address] [place] [address] Wesley Em MD [address] [place] [address] [address] [place] [address] History of tobacco abuse (Primary Dx); Encounter for screening for lung cancer; Essential hypertension; Type 2 diabetes mellitus with hyperlipidemia (CMS/HCC); Mixed hyperlipidemia; Prostate cancer screening; Vitamin D deficiency Social History Tobacco Use Types Packs/Day Years Used Date Smoking Tobacco: Former Cigarettes 0.1 50 1 9 2008 Smokeless Tobacco: Never Alcohol Use Standard Drinks/Week Comments No 0 (1 standard drink = 0.6 oz pur e alcohol) PHQ-2 Answer Date Recorded PHQ-2 Total Score (If total score is 3 or more points, staff should administer the PHQ-9) 0 08/27/2020 Sex and Gender Information Value Date Recorded Sex Assigned at Not on file 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 COPD. ATHEROSCLEROSIS. CONTINUED [address] LOW-DOSE CT SURVEILLANCE Electronically signed by: Shorty Carvalho M.D. Narrative 09/09/2020 1:19 PM WILDLIFE OFFICER EXAMINATION: CT LUNG CANCER SCREENING dated 09/09/2020 1:00 PM HISTORY: 74-year-old man lung cancer screening. 25 pack-year history, quit smoking July 2008 TECHNIQUE: Low-dose noncontrast spiral CT of multiplanar reconstructions FINDINGS: Comparison with multiple priors most recently dated 02/14/2019. Adjunct Business Instructor radiograph once again demonstrates tortuous aorta with [...] with multiple priors most recently dated 02/14/2019. Adjunct Business Instructor radiograph once again demonstrates tortuous aorta with [...] encounter Visit Diagnoses Diagnosis History of tobacco abuse- Primary Encounter for screening for lung cancer Essential hypertension Unspecified essential hypertension Type 2 diabetes mellitus with hyperlipidemia (HCC) Mixed hyperlipidemia Prostate cancer screening Special screening for malignant neoplasm of prostate Vitamin D deficiency History of tobacco abuse Encounter for screening for lung cancer documented in this encounter Care Teams Adjunct Business Instructor Relationship Specialty Start Date End Date Wesley Em MD PCP - General 09/30/16 12/01/21 Trey Pinedo MD [address] [place] [address] Consulting Physician Neurology 05/09/19 documented as of this encounter
--- OUTSIDE RECORDS SUMMARY | 2024-06-18 18:11 | XMS_ITS | Encounter Summary ---
Author Organization [facility] Address [address] [facility] [address] [place] [address] Care Team Providers Care Master Ship Name Role Phone Wesley Em MD Primary Care Provider [phone] Trey Pinedo MD Unavailable [phone] Encounter Details Date Type Department Care Team (Late st Contact Info) Description 11/20/2019 Orders Only [facility] 2 [facility] [address] [place] [address] Wesley Em MD [address] [place] [address] [address] [place] [address] Social History Tobacco Use Types Packs/Day Years [...] on file 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 Gender Identity Not on file Sexual Orientation Straight 01/23/2021 10 :16 PM CDT documented as of this encounter Ordered Prescriptions Prescription Sig Dispense Quantity Refills Last Filled Start Date End Date cloNIDine (CATAPRES-TTS) 0.1 mg/[address] 0.1 mg on the skin once a week 12 patch 11 11/20/2019 02/26/2020 documented in this encounter Plan of Treatment Not on file documented as of this encounter Visit Diagnoses Not on filedocumented in this encounter Discontinued Medications Medication Sig Discontinue Reason Start Date End Da te cloNIDine (CATAPRES-TTS) 0.1 mg/[address] 0.1 mg on the skin once a week Reorder 08/20/2019 11/20/2019 documented as of this encounter Care Teams Master Ship Relationship Specialty Start Date End Date Wesley Em MD PCP - General 09/30/16 12/01/21 Trey Pinedo MD [address] [facility] [place] [address] Consulting Physician Neurology 05/09/19 documented as of this encounter
--- OUTSIDE RECORDS SUMMARY | 2024-06-18 18:11 | XMS_ITS | Encounter Summary ---
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 [address] [place] [address] Consulting Physician Neurology 05/09/19 documented as of this encounter
--- OUTSIDE RECORDS SUMMARY | 2024-06-18 18:11 | XMS_ITS | Encounter Summary ---
Author Organization [facility] Address [address] [place] [address] Care Team Providers Care Threshing Department Supervisor Name Role Phone Wesley Em MD Primary Care Provider Trey Pinedo MD Unavailable [phone] Encounter Details Date Type Department Care Team (Late st Contact Info) Description 01/28/2021 11:30 AM CDT Lab [facility] Physicians [address] [facility] [address] [place] [address] Polycythemia Social History Tobacco Use Types Packs/Day [...] than three times a week 12/31/2020 Attends [employer] Services Not on file 12/31 Active Member [...] on file 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 Gender Identity Not on file Sexual Orientation Straight 01/23/2021 10 :16 PM CDT documented as of this encounter Last Filed Vital Signs Vital Sign Reading Time Taken Comments Blood Pressure 107/69 01/28/2021 11:47 AM CDT Pulse 96 01/28/2021 11:47 AM CDT Temperature 35.7 ??C (96.3 ??F) 01/28/2021 11:47 AM C DT Respiratory Rate 20 01/28/2021 11:47 AM CDT Oxygen Saturation 98% 01/28/2021 11:47 AM CDT Inhaled Oxygen Concentration - - Weight 89.9 kg (198 lb 1.6 oz) 01/28/2021 11:47 AM CDT Height 177.8 cm (5' 10 ) 01/28/2021 11:47 AM CDT Body Mass Index 28.42 01/28/2021 11:47 AM CDT documented in this encounter Plan of Treatment Not on file documented as of this encounter Procedures Procedure Name Priority Date/Time Associated Diagnosis Comments ERYTHROPOIETIN Routine 01/28/2021 11:45 AM CDT Polycythemia documented in this encounter Results * Erythropoietin (01/28/2021 11:45 AM CDT) Erythropoietin 12.6 2.6 - 18.5 mIUnits/mL [facility]) Comment: Test Performed by: [facility] [address] [place] [address] Aircraft Structural Fitter: Wade Paul M.D. Ph.D.; CLIA# [id number] Blood specimen (specimen) 01/28/2021 11:45 AM CDT 01/28/2021 12:18 PM CDT us Chintan Figueroa MD LAB BLOOD ORDERABLES Final Re sult [facility] ([place]) [address] [facility] Department [place] [address] documented in this encounter Visit Diagnoses Diagnosis Polycythemia Polycythemia, secondary documented in this encounter Care Teams Threshing Department Supervisor Relationship Specialty Start Date End Date Wesley Em MD PCP - General 09/30/16 12/01/21 Trey Pinedo MD [address] [place] [address] [address] [place] [address] Consulting Physician Neurology 05/09/19 documented as of this encounter
--- OUTSIDE RECORDS SUMMARY | 2024-06-18 18:11 | XMS_ITS | Encounter Summary ---
Author Organization [facility] Address [address] [place] [address] Phone Care Team Providers Care Adult Daycare Coordinator Name Role Phone Wesley Em MD Primary Care Provider [phone] Trey Pinedo MD Unavailable [phone] Dorinda Chavez [facility] Unavailable [phone] Reason for Visit * Consultation (Routine) - Closed Specialty Diagnoses / Procedures Referred By Jomar villela Referred To Contact Oncology Diagnoses Polycythemia Wesley Em MD Phone: tel: fax: Praful Davila MD [address] [place] [id number] Phone: tel: fax: Referral ID Status Reason Start Date Expiration Date V isits Requested Visits Authorized [id number] Closed Specialty Services Required 01/01/2021 01/31/2022 1 1 Encounter Details Date Type Department Care Team (Late st Contact Info) Description 01/26/2021 3:30 PM CDT Office Visit [facility] [address] [place] [address] Medical Office [facility] [address] [place] [id number] Chintan Figueroa MD [address] [place] [address] [address] [place] [address] Polycythemia (Primary Dx) Social History Tobacco Use [...] on file 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 Gender Identity Not on file Sexual Orientation Straight 01/23/2021 10 :16 PM CDT documented as of this encounter Last Filed Vital Signs Vital Sign Reading Time Taken Comments Blood Pressure 151/67 01/26/2021 3:31 PM CDT Pulse 58 01/26/2021 3:31 PM CDT Temperature 36.2 ??C (97.2 ??F) 01/26/2021 3:31 PM CD T Respiratory Rate 20 01/26/2021 3:31 PM CDT Oxygen Saturation 97% 01/26/2021 3:31 PM CDT Inhaled Oxygen Concentration - - Weight 90.5 kg (199 lb 9.6 oz) 01/26/2021 3:31 P M CDT Height 177.8 cm (5' 10 ) 01/26/2021 3:31 PM CDT Body Mass Index 28.64 01/26/2021 3:31 PM CDT documented in this encounter Progress Notes * Chintan Figueroa MD - 01/26/2021 3:30 PM CDT Hematology/Oncology Consult Visit Date: 01/26/2021 Primary Care Physician:Wesley Em MD Requesting Provider: [facility] 75 [facility] Chief Complaint: The patient was referred from my opinion and recommendations regarding further evaluation and management of his erythrocytosis. HPI: 01/26/2021 --The patient is a 75-year-old male [...] tells me that he did see a correspondence representative here in [place], Dr. Hoskins, several years ago who recommended [...] taking testosterone in any form nor any [id number] androgen type erb or supplement. His significant [...] (three) times a day 08/27/20 08/27/21 Wesley mE MD clopidogreL (PLAVIX) 75 mg tablet TAKE [...] Wesley Em MD Allergies Allergen Reactions ??? Apple ??? Ciprofloxacin Rash Reaction: RASH, Reaction: Rash, Social History Socioeconomic History ??? Marital status: Spouse name: Not on file ??? Number of children: Not on file ??? Years of education: Not on file ??? Highest education level: Not on file Occupational History ??? Not on file Tobacco Use ??? Smoking status: Former Smoker Packs/day: 0.05 Years: 50.00 Pack years: 2.50 Types: Cigarettes Quit date: 2008 Years since quittin.5 ??? Smokeless tobacco: Never Used Substance and Sexual Activity ??? Alcohol use: [...] than three times a week ??? Attends [employer] Services: Not on file ??? Active Member of Clubs or Organizations: Not on file ??? Attends Club or Organization Meetings: Not on file ??? Marital Status: Intimate Partner Violence: ??? Fear of Current or Ex-Partner: ??? Emotionally Abused: ??? Physically Abused: ??? Sexually Abused: Family History Problem Relation Age of Onset [...] patient is not nervous/anxious. Objective Vitals BP 151/67 (BP Location: Right arm) Pulse 58 Temp 36.2 ??C (97.2 ??F) (Temporal) Resp 20 Ht 177.8 cm (5' 10 ) Wt 90.5 kg (199 lb 9.6 oz) SpO2 97% BMI 28.64 kg/m?? Physical Exam Vitals reviewed. Constitutional: General: He is not in acute distress. Appearance: He is well-developed. He is obese. He is not diaphoretic. HENT: Head: Normocephalic and atraumatic. Right Ear: [...] hour(s)) CBC with auto differential Collection Time: 01/26/21 3:20 PM Result Value Ref Range WBC 7.0 3.8 - 9.9 K/cumm Hgb 19.8 (H) 13.0 - 17.5 g/dL Hct 53.4 (H) 38.9 - 50.3 % Plt 141 (L) 150 - 400 K/cumm MPV 10.5 9.1 - 12.3 fL RBC 5.79 4.30 - 5.80 M/cumm MCV 92.2 81.3 - 96.4 fL MCH 34.2 (H) 27.1 - 33.3 pg MCHC 37.1 (H) 32.3 - 35.7 g/dL RDW CV 13.1 11.1 - 14.9 % RDW SD 43.1 35.7 - 48.1 fL NRBC abs Not Measured 0.00 - 0.01 K/cumm Differential, auto Collection Time: 01/26/21 3:20 PM Result Value Ref Range Neutrophil abs 4.4 1.7 - 6.5 K/cumm Imm gran abs Not Measured 0.0 - 0.1 K/cumm Lymphocyte abs 1.5 0.8 - 3.3 K/cumm Monocyte abs 0.7 0.2 - 0.8 K/cumm Eosinophil abs 0.3 0.0 - 0.5 K/cumm Basophil abs 0.1 0.0 - 0.1 K/cumm Neutrophil pct 63.0 % Imm gran pct Not Measured % Lymphocyte pct 21.7 % Monocyte pct 10.0 % Eosinophil pct 4.3 % Basophil pct 1.0 % Patient Active Problem List Diagnosis Date Noted ??? 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 Type 2 diabetes mellitus with hyperlipidemia (CMS/HCC) 10/25/2019 ??? Cerebrovascular arteriosclerosis 05/20/2019 ??? Bilateral carotid artery disease (CMS/HCC) 05/20/2019 ??? TIA (transient ischemic attack) 05/08/2019 ??? History of noncompliance with medical treatment 05/08/2019 ??? History of colon polyps 11/17/2018 ??? Bladder stones 2017 ??? Coronary artery disease involving [place] coronary artery of [place] heart without angina pectoris 2017 ??? Chronic GERD 2017 ??? Polycythemia 07/07/2017 ??? Sensorineural hearing loss, bilateral 05/05/2017 ??? Benign prostatic hyperplasia with lower urinary tract symptoms 12/26/2016 ??? Essential hypertension 12/26/2016 ??? Kidney stones 12/26/2016 ??? Hyperlipidemia 11/16/2013 Assessment: 1. 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 2. Benign left renal cyst Plan: 1. I will start monthly phlebotomies to bring his hematocrit down to approximately 45%. 2. I will remeasure his erythropoietin level before we start phlebotomies. 3. I will see him back in 3 months with CBC at that time. Chintan Figueroa MD 01/26/2021 documented in this encounter Miscellaneous Notes * Addendum Note - Alla Huerta CLT - 01/26/2021 3:30 PM CDTAddended by: ALLA HUERTA on: 02/23/2021 02:23 PM Modules accepted: Orders documented in this encounter Plan of Treatment Not on file documented as of this encounter Results * (ABNORMAL) CBC with auto differential (04/20/2021 2:35 PM CDT) [facility] WBC 6.6 3.8 - 9.9 K/cumm [facility] ([facility]) Hgb 18.1(H) 13.0 - 17.5 [...] Final Re sult [facility] ([facility]) 1 [facility] [place] [address] * (ABNORMAL) CBC with auto differential (03/30/2021 2:40 PM CDT) WBC 5.9 3.8 - 9.9 K/cumm [facility] ([facility]) Hgb 18.8(H) 13.0 - 17.5 g/dL [facility] ([facility]) Hct 51.4(H) 38.9 - 50.3 % [facility] ([facility]) Plt 150 150 - 400 K/cumm [facility] ([facility]) MPV 10.4 9.1 - 12.3 fL [facility] ([facility]) RBC 5.53 4.30 - 5.80 M/cumm [facility] ([facility]) MCV 92.9 81.3 - 96.4 fL [facility] [...] 2:40 PM CDT 03/30/2021 2:42 PM CDT us Chintan Figueroa MD LAB BLOOD ORDERABLES Final Re sult [facility] ([facility]) 1 [facility] [place] [address] * (ABNORMAL) CBC with auto differential (02/23/2021 [...] ORDERABLES Final Re sult Performing Organization Address [facility] Co de Phone Number [facility] ([facility]) 1 [facility] [place] [address] * Erythropoietin (01/28/2021 11:45 AM CDT) Erythropoietin 12.6 2.6 - 18.5 mIUnits/mL [facility] ([facility]) Comment: Test Performed by: [facility] [address] [place] [address] [place] Supervisor: Wade Paul M.D. Ph.D.; CLIA# [id number] Blood specimen (specimen) 01/28/2021 11:45 AM CDT 01/28/2021 12:18 PM CDT Chintan Figueroa MD LAB BLOOD ORDERABLES Final Re sult Performing Organization Address [facility] de Phone Number [facility] ([facility]) 1 [facility] [place] [address] * (ABNORMAL) CBC with auto differential (01/26/2021 3:20 PM CDT) WBC 7.0 3.8 - 9.9 [...] (BETTY) MCH 34.2(H) 27.1 - 33.3 pg [facility] MCHC 37.1(H) 32.3 - 35.7 g/dL [facility] ([facility]) RDW CV 13.1 11.1 - 14.9 % [facility] ([facility]) RDW SD 43.1 35.7 - 48.1 fL [facility] NRBC abs Not Measured 0.00 - 0.01 K/cumm [facility] Blood specimen (specimen) 01/26/2021 3:20 PM CDT 01/26/2021 3:21 PM CDT Chintan Figueroa MD LAB BLOOD ORDERABLES Final Re sult [facility] ([facility]) 1 [facility] [place] [address] * Comprehensive metabolic panel (01/26/2021 3:20 PM CDT) Sodium 139 135 - 145 mmol/L [facility] Potassium, pl 4.1 3.3 - 4.9 mmol/L [facility] Chloride 103 97 - 110 mmol/L [facility] ([facility]) CO2 28 22 - 32 mmol/L [facility] ([facility] Anion gap 8 2 - 15 mmol/L [facility] BUN 20 8 - 25 mg/dL [facility] ([facility]) Creatinine 1.13 0.80 - 1.30 mg/dL [facility] ([facility]) Glucose 113 70 - 199 mg/dL [facility] Comment: Interpretive Data Fasting [...] Final Re sult [facility] ([facility]) 1 [facility] [place] [address] documented in this encounter Visit Diagnoses Diagnosis Polycythemia- Primary Polycythemia, secondary documented in this encounter Orders Outpatient Referral Count Last Ordered Date Fir st Ordered Date AMB REFERRAL TO ONCOLOGY 1 01/26/2021 Appointment Requests Count Last Ordered Date Fi rst Ordered Date [facility] CLINIC APPOINTMENT REQUEST 1 021 [facility] LAB APPOINTMENT 2 03/30/202102/23 [facility] THERAPEUTIC PHLEBOTOM Y APPOINTMENT REQUEST 2 03/30/2021 02/23/2021 documented in this encounter Care Teams Adult Daycare Coordinator Relationship Specialty Start Date End Date Wesley Em MD PCP - General 09/30/16 12/01/21 Trey Pinedo MD [address] [place] [address] [address] [place] [address] Consulting Physician Neurology 05/09/19 Dorinda Chavez, FACILITY ENGINEER [address] [place] [id number] Smoking Tobacco Packer Hand 12/30/20 01/26/21 documented as of this encounter
--- OUTSIDE RECORDS SUMMARY | 2024-06-18 18:11 | XMS_ITS | Encounter Summary ---
Author Organization [facility] Healthcare Address [address] [place] [address] Care Team Providers Care Software Developer Intern Name Role Phone Wesley Em MD Primary Care Provider [phone] Trey Pinedo MD Unavailable [phone] Reason for Visit * Reason Comments Fall Encounter Details Date Type Department Care Team (Late st Contact Info) Description 12/28/2020 2:35 PM CDT - 12/28/2020 8:42 PM CDT Emergency [facility] Emergency Department [address] [place] [id number] Ford Killian MD [address] [place] [address] Fall, initial encounter (Primary Dx); Rib contusion, left, initial encounter; Colitis without complication; Diverticulitis of large intestine without perforation or abscess without bleeding Discharge Disposition: Discharge to home or self [...] on file Legal Sex Male 6:00 PM [employer]KE [employer] Gender Identity Not on file Sexual Orientation Straight 01/23/2021 10 :16 PM CDT documented as of this encounter Last Filed Vital Signs Vital Sign Reading Time Taken Comments Blood Pressure 176/81 12/28/2020 8:30 PM CDT Pulse 50 12/28/2020 8:30 PM CDT Temperature 36.6 ??C (97.9 ??F) 12/28/2020 2:33 PM CD T Respiratory Rate 17 12/28/2020 8:30 PM CDT Oxygen Saturation 96% 12/28/2020 8:30 PM CDT Inhaled Oxygen Concentration - - Weight - - Height - - Body Mass Index - - documented in this encounter Discharge Diagnoses Diagnosis Contusion of left front wall of thorax, initial encounter - CONTUSION OF LEFT FRONT WALL OF THORAX, INITIAL ENCOUNTER Noninfective gastroenteritis and colitis, unspecified - NONINFECTIVE GASTROENTERITIS AND COLITIS, UNSPECIFIED Diverticulitis of large intestine without perforation or abscess without bleeding - DIVERTICULITIS OF LARGE INTESTINE WITHOUT PERFORATION OR ABSCESS WITHOUT BLEEDING Unspecified fall, initial encounter - UNSPECIFIED FALL, INITIAL ENCOUNTER Activity, unspecified - ACTIVITY, UNSPECIFIED Bathroom of unspecified non-institutional (private) residence as the place of occurrence of the external cause - BATHROOM OF UNSPECIFIED NON-INSTITUTIONAL (PRIVATE) RESIDENCE THE PLACE OF OCCURRENCE OF THE EXTE Unspecified external cause status - UNSPECIFIED EXTERNAL CAUSE STATUS Chronic obstructive pulmonary disease, unspecified (HCC) - CHRONIC OBSTRUCTIVE PULMONARY DISEASE, UNSPECIFIED Gastro-esophageal reflux disease without esophagitis - GASTRO-ESOPHAGEAL REFLUX DISEASE WITHOUT ESOPHAGITIS Essential (primary) hypertension - ESSENTIAL (PRIMARY) HYPERTENSION Unspecified essential hypertension Personal history of transient ischemic attack (TIA), and cerebral infarction without residual deficits - PERSONAL HISTORY OF TRANSIENT ISCHEMIC ATTACK (TIA), AND CEREBRAL INFARCTION WITHOUT RESIDUAL DEFICI Personal history of nicotine dependence - PERSONAL HISTORY OF NICOTINE DEPENDENCE documented in this encounter Discharge Instructions * Attachments The following attachments cannot be sent through Care Everywhere. * Chest Wall Contusion (Ethiopian) * Diverticulitis (AfterCare(R) Instructions(ER/ED)) (Ethiopian) documented in this encounter Medications at Time of Discharge aspirin 81 mg tablet Take one by mouth one time per day 0 0 06/27/2008 metroNIDAZOLE (FLAGYL) 500 mg tablet Take 1 tablet (500 mg total) by mouth 2 (two) times a day for 7 days 14 tablet 12/28/2020 1 sulfamethoxazole -trimethoprim (BACTRIM DS) 800-160 mg per tablet Take 1 tablet by mouth 2 (two) times a day for 7 days smx-tmp DS (BACTRIM) 800-160 mg tabs 14 tablet 12/28/2020 1 atorvastatin (LIPITOR) 80 mg tablet TAKE 1 [...] 6 (six) hours as needed for pain 15 tablet 12/28/2020 1 polyethylene glycol (MIRALAX) 17 gram packetIndication [...] 08/20/2019 1 documented as of this encounter Ordered Prescriptions Prescription Sig Dispense Quantity Refills Last Filled Start Date End Date sulfamethoxazole-t rimethoprim (BACTRIM DS) 800-160 mg per tablet Take 1 tablet by mouth 2 (two) times a day for 7 days smx-tmp DS (BACTRIM) 800-160 mg tabs 14 tablet 12/28/2020 01/04/2021 metroNIDAZOLE (FLAGYL) 500 mg tablet Take 1 tablet (500 mg total) by mouth 2 (two) times a day for 7 days 14 tablet 12/28/2020 01/04/2021 polyethylene glycol (MIRALAX) 17 gram packetIndications: constipation Take 1 packet (17 g total) by mouth daily 30 packet 12/28/2020 03/02/2021 oxyCODONE-acetamin ophen (PERCOCET) 5-325 mg per tabletIndications: Pain Take 1 tablet by mouth every 6 (six) hours as needed for pain 15 tablet 12/28/2020 01/01/2021 sulfamethoxazole-t rimethoprim (BACTRIM DS) 800-160 mg per tablet Take 1 tablet by mouth 2 (two) times a day for 7 days smx-tmp DS (BACTRIM) 800-160 mg tabs 14 tablet 12/28/2020 12/28/2020 metroNIDAZOLE (FLAGYL) 500 mg tablet Take 1 tablet (500 mg total) by mouth 2 (two) times a day for 7 days 28 tablet 12/28/2020 12/28/2020 documented in this encounter Discharge Disposition Disposition Code Departure Means Destination Discharge to home or self care documented in this encounter ED Notes * Ford Killian MD - 12/28/2020 6:17 PM CDT HPI Chief Complaint Patient presents with ??? Fall HPI [address] is a 75 y.o. male with a hx of DM, COPD, HLD, HTN, GERD, Barett esophagus, and TIA presenting to the ED via private vehicle c/o a fall that happened 3 days ago. Pt reported painto his left lateral side where the bruising is located and he noted the pain was 10/10. Pt said that the pain was constant 3 days ago with the intensity worsening over time. Pt cannot feel his feet fully. Family thinks that the feeling of his legs caused the fall. Pt is urinating fine. Pt also stated pain with taking deep breaths. No modifying factors were present at the time. No other complaintswere present at the time. Pt is a former smoker who does not use ETOH. Patient History: Past Medical History: Diagnosis Date ??? [...] Substance Use Topics ??? Alcohol use: No ??? Drug use: No Review of Systems Review of Systems Constitutional: Negative for chills and fever. HENT: Negative for congestion and ear pain. Eyes: Negative for pain and discharge. Respiratory: Negative for cough and shortness of breath. + pain with breathing Cardiovascular: Negative for chest pain and palpitations. Gastrointestinal: Negative for abdominal pain, nausea and vomiting. Genitourinary: Positive for flank pain (left flank). Negative for dysuria, frequency and urgency. Musculoskeletal: Negative for back pain and myalgias. Skin: Negative for rash and wound. + bruise Neurological: Positive for numbness (feet). Negative for dizziness and headaches. Physical Exam ED Triage Vitals [12/28/20 1433] Temp Pulse Resp BP SpO2 36.6 ??C (97.9 ??F) 63 22 (!) 174/89 96 % Temp src Heart Rate Source Patient Position BP Location FiO2 (%) Temporal -- -- -- -- Physical Exam Vitals and nursing note reviewed. Constitutional: Comments: Well appearing pleasant male with NAD. HENT: Head: Normocephalic and atraumatic. Comments: Face symmetrical. Mouth/Throat: Mouth: Mucous membranes are moist. Comments: Speech clear and fluent. Eyes: Extraocular Movements: Extraocular movements intact. Conjunctiva/sclera: Conjunctivae normal. Cardiovascular: Rate and Rhythm: Normal rate and regular rhythm. Pulses: Normal pulses. Heart sounds: Normal heart sounds. Pulmonary: Effort: Pulmonary effort is normal. No respiratory distress. Breath sounds: Normal breath sounds and air entry. Abdominal: Palpations: Abdomen is soft. Tenderness: There is no abdominal tenderness. There is no guarding or rebound. Comments: No referral. Musculoskeletal: Cervical back: Neck supple. Comments: No peripheral edema. No calf pain. Skin: General: Skin is warm and dry. Comments: Underneath left nipple, mid axillary line, there is a 4x8 cm deep dark bruise that is tender with palpation. It is located approximately around the 5th and 6th ribs. Neurological: General: No focal deficit present. Mental Status: He is alert and oriented to person, place, and time. Procedures MDM Labs Reviewed URINALYSIS AND REFLEX TO MICROSCOPIC AND CULTURE - Abnormal Result Value Color, ur Yellow Clarity, ur Clear Specific gravity, ur 1.020 pH, urine 5.5 Protein, ur ql 1+ (*) Glucose, ur ql Trace (*) Ketones, ur Negative Bilirubin, ur Negative Blood, [...] tendency for uric acid stone formation. Source: [employer]Last revised 07-13-2017 CBC WITH AUTO DIFFERENTIAL - Abnormal WBC 7.0 Hgb 19.0 (*) Hct 54.1 (*) Plt 156 MPV 10.7 RBC 5.65 MCV 95.8 MCH 33.6 (*) MCHC 35.1 RDW CV 12.2 RDW SD 43.1 NRBC abs 0.00 COMPREHENSIVE METABOLIC PANEL - Abnormal Sodium 140 Potassium, pl 3.8 Chloride 103 CO2 28 Anion gap 10 BUN 30 (*) Creatinine 1.39 (*) Glucose 157 Calcium 9.1 Bilirubin, total 0.8 Protein, pl 6.4 (*) Albumin 3.9 Alk phos 112 ALT 17 AST 14 URINALYSIS, MICROSCOPIC ONLY - Abnormal WBC, ur 0-5 RBC, ur 0-2 Mucous, ur Present (*) Culture Reflex Comment Value: Reflex conditions for urine culture (WBC >10) not met. TYPE AND SCREEN TROPONIN T HIGH-SENSITIVITY SERIES (BASELINE, 2HR, 4HR, 6HR) Trop T hs 17 ABO/RH ABO/RH. O Positive Narrative: Has the patient had Daratumumab or Isatuximab in the past 6 months?->Unknown ANTIBODY SCREEN Katya, indirect, Gel Interpretation Negative ABSC Narrative: Has the patient had Daratumumab or Isatuximab in the past 6 months?->Unknown DIFFERENTIAL AUTO Neutrophil abs 4.8 Imm gran abs 0.0 Lymphocyte abs 1.1 Monocyte abs 0.6 Eosinophil abs 0.3 Basophil abs 0.1 Neutrophil pct 68.6 Imm gran pct 0.3 Lymphocyte pct 16.1 Monocyte pct 9.1 Eosinophil pct 4.3 Basophil pct 1.6 TROPONIN T HIGH-SENSITIVITY 2-HOUR Trop T hs 18 Trop T hs delta See Comment Trop T hs pct delta See Comment Trop T hs interp See Comment EGFR GFR 50 CT Abdomen Pelvis WO Contrast Final Result CT Chest W Contrast Final Result BP (!) 176/81 Pulse 50 Temp 36.6 ??C (97.9 ??F) (Temporal) Resp 17 SpO2 96% [facility] ED Course as of Dec 28 2124 Time: 12/28 2001 Comment: Offered admission for RX and antibiotics, pt wants to go home to , family lives near. Had GI issues fathers day. By: Ford Killian MD Clinical Impression: Fall, initial encounter Rib contusion, left, initial encounter Colitis without complication Diverticulitis of large intestine without perforation or abscess without bleeding This note is prepared by Darrick Garland, acting as a scribe for Ford Killian MD. I electronically signed this note at 9:25 PM on 12/28/2020. I, Ford Killian MD have personally performed the services described in the documentation, reviewed the documentation, as recorded by the scribe in my presence, and it accurately and completely records my words and actions. Ford Killian MD 12/28/202123 Ford Killian MD 12/28/202124 * Maryanne Ervin RN - 12/28/2020 2:30 PM CDT 75 yr old male presents to the ED following a fall on Monday while at home. Pt awake and alert uponarrival, reports pain to his left lateral side where bruising is located. Pt reports difficulty taking a deep breath due to the pain. documented in this encounter Miscellaneous Notes * ED Triage Provider Note - Rudy Cunningham PA - 12/28/2020 2:35 PM CDT Rapid Medical Evaluation: S - 75-year-old male presents with his caregiver with chief complaint of injury to the left lateralchest wall. On 12/25/2020, accidentally fell in his bathroom at home. Struck his left outerchest on the bathtub. Since then experiencing gradually worsening pain that he describes as constant and severe. Aggravated by taking a deep breath. Nothing alleviates it. Occasionally feels short ofbreath. Denies head injury or loss of consciousness. O - CONSTITUTIONAL: Well-appearing; well-nourished; in pain distress HEAD: Normocephalic; atraumatic EYES: PERRL; conjunctiva and sclera are clear bilaterally. NECK: Supple; non-tender; no cervical lymphadenopathy CARD: Regular rhythm. Rate WNL. RESP: Normal respiratory effort; breath sounds clear and equal bilaterally. ABD: Normal bowel sounds; non-distended; non-tender; no palpable organomegaly, no masses, no bruits. MUSCULOSKELETAL: Normal ROM in all four extremities. Tenderness and ecchymosis to the left lateral rib 4 through rib 12 region. SKIN: warm; dry; good turgor. NEURO: COA x 3. Motor and sensory grossly intact. A - accidental fall with left lateral chest injury. Dyspnea P - IV, labs, EKG, CT of chest. To go to main ER when room available. Voice recognition software [employer] was used to dictate and transcribe this document. [employer]in[employer] Tender variances may occur. Despite proofreading, typographical errors may occur. documented in this encounter Plan of Treatment Not on file documented as of this encounter Procedures Procedure Name Priority Date/Time Associated Diagnosis Comments URINALYSIS AND REFLEX TO MICROSCOPIC AND CULTURE Routine 12/28/2020 7:32 PM CDT URINALYSIS, MICROSCOPIC ONLY Routine 12/28/2020 7:[address] ABDOMEN PELVIS WO CONTRAST ED 12/28/2020 7:19 PM CDT TROPONIN T HIGH-SENSITIVITY 2-HOUR Timed 12/28/2020 6:[address] CHEST W CONTRAST ED 12/28/2020 5 :17 PM CDT TROPONIN T HIGH-SENSITIVITY SERIES (BASELINE, 2HR, 4HR, 6HR) STAT 12/28/2020 3:17 PM CDT EGFR STAT 12/28/2020 3:17 PM CDT DIFFERENTIAL AUTO STAT 12/28/2020 3:1 7 PM CDT CBC WITH AUTO DIFFERENTIAL STAT 12/28/2020 3:17 PM CDT ABO/RH STAT 12/28/2020 3:17 PM CDT ANTIBODY SCREEN STAT 12/28/2020 3:17 PM CDT TYPE AND SCREEN STAT 12/28/2020 3:17 PM CDT COMPREHENSIVE METABOLIC PANEL STAT 12/28/2020 3:17 PM CDT ECG 12-LEAD STAT 12/28/2020 2:53 PM CDT documented in this encounter Results * (ABNORMAL) Urinalysis, microscopic only (12/28/2020 7:32 PM CDT) WBC, ur 0-5 0 - 5 /HPF [facility] (BET[facility]) RBC, ur 0-2 0 - 2 /HPF [facility] ([facility]) Mucous, ur Present(A) [facility] (BETTY) Culture Reflex Comment Reflex conditions for urine culture (WBC >10) not met. [facility] ([facility]) Urine, clean voided 12/28/2020 7:32 PM CDT 12/28/2020 7:34 PM CDT us Ford Killian MD LAB URINE ORDERABLES Final Result [facility] (BETTY) [facility] Department [place] [address] * (ABNORMAL) Urinalysis reflex to microscopic and culture Urine, clean voided (12/28/2020 7:32 PM CDT) Color, ur Yellow Yellow [facility] ([facility]) Clarity, ur Clear Clear [facility] ([facility]ETTY) Specific gravity, ur 1.020 1.010 - 1.025 [facility] ([facility]) pH, urine 5.5 [facility] ([facility]) Protein, ur ql 1+(A) Negative [facility] ([facility]) Glucose, ur ql Trace(A) Negative [facility] ([facility]) Ketones, ur Negative Negative [facility] (BETTY) Bilirubin, ur Negative Negative [facility] ([facility]ET[facility]) Blood, ur Negative Negative [facility] ([facility]) Urobilinogen, ur <2.0 <2.0 mg/dL [facility] ([facility]ET[facility]) Nitrite, ur Negative Negative [facility] (BETTY) Leukocyte esterase, ur Negative Negative [facility] ([facility]) UA reflex comment Reflex to microscopic UA will be performed. [facility] (BETTY) Urine, clean voided 12/28/2020 7:32 PM CDT 12/28/2020 7:34 PM CDT Narrative [facility] (BETTY) - 12/28/2020 8:06 PM CDT ?? Urine pH is affected by diet, medications, systemic acid-base disturbances, and renal tubular function. ??pH may affect urinary stone formation. ??For example, urine pH below 6.0 may help reduce the tendency for calcium phosphate stones and pH greater than 6.0 may reduce the tendency for uric acid stone formation. Source: [employer]. Last revised 07-13-2017 us Ford Killian MD LAB MICROBIOLOGY - GENERAL ORDERABLES Final Result [facility] (BETTY) [facility] Department [place] [address] * CT Abdomen Pelvis WO Contrast (12/28/2020 7:19 PM CDT) Anatomical Region Laterality Modality Body N/A Computed Tomogra phy 12/28/2020 7:43 PM CDT Narrative 12/28/2020 7:52 PM CDT EXAM DESCRIPTION: ?? CT ABDOMEN PELVIS WO CONTRAST REASON FOR STUDY: ??Left mid back and chest pain since a fall 2 days ago. TECHNIQUE: ??CT scan of the abdomen and pelvis performed without intravenous and without oral contrast using helical scanning technique. Reconstructed coronal and sagittal MPR images reviewed. All images stored on PACS. ?? Automated exposure control was used as a dose optimization technique for this examination. COMPARISON: ?? CT of the abdomen and pelvis from 12/12/2016. ??Correlation with CT of the chest from 12/28/2020. FINDINGS: The sensitivity for detection of visceral lesions is diminished without the use of intravenous contrast. LOWER CHEST: There is mild bibasilar subsegmental atelectasis. ??There is no pleural effusion. LIVER: The liver is normal in appearance. GALLBLADDER: The gallbladder is normal in appearance. There is no evidence of cholelithiasis, gallbladder wall thickening, or pericholecystic fat stranding. BILE DUCTS: There is no intrahepatic or extrahepatic ductal dilatation. SPLEEN: The spleen is normal in size. There is no evidence of a focal splenic lesion. PANCREAS: The pancreas is normal in appearance. There is no peripancreatic inflammation or fluid collection. ADRENALS: The bilateral adrenal glands are normal in appearance. KIDNEYS/URINARY TRACT: The kidneys are symmetric in size. ??There is excreted iodinated contrast material in the bilateral renal collecting systems from prior same day contrast enhanced CT of the chest. ??There is no evidence of a suspicious renal parenchymal mass lesion. ??There is a 4.4 cm benign simple cyst extending off the inferior left kidney. ??There is no hydronephrosis. ??The urinary bladder is normal in appearance. GI: Small bowel and colon are normal in caliber. ??There is no evidence of bowel obstruction. ??The appendix is normal. ??There is colonic diverticulosis. ?? There is sigmoid colonic wall thickening and pericolonic fat stranding. ??There is no pericolonic fluid collection. PERITONEUM: There is no ascites or pneumoperitoneum. There is no mesenteric lymphadenopathy. There is a moderate, fat-containing periumbilical hernia. RETROPERITONEUM: There is no retroperitoneal mass or lymphadenopathy. REPRODUCTIVE: The prostate gland is enlarged and impresses on the base of the urinary bladder. VASCULATURE: The abdominal aorta is normal in course and caliber. There is no abdominal aortic aneurysm. There is moderate atherosclerotic calcification of the abdominal aorta and the iliac arteries. MUSCULOSKELETAL: There are no acute or aggressive appearing osseous abnormalities. There is moderate multilevel degenerative change of the thoracolumbar spine. ??There is mild bilateral hip and sacroiliac joint osteoarthritis. IMPRESSION: ?? 1. ??Mild acute sigmoid diverticulitis. ??No evidence of perforation or abscess. 2. ??Moderate fat-containing periumbilical hernia. 3. ??Prostatomegaly. THIS IS AN ELECTRONICALLY VERIFIED FINAL REPORT 12/28/2020 7:52 PM - Electronically signed by Saleem Rice M.D. AB: D: ??12/28/2020 7:52 PM T: ??12/28/2020 7:52 PM Report ID: [id number] Reading Location: ??[id number] Procedure Note Saleem Rice MD - 12/28/2020 EXAM DESCRIPTION: CT ABDOMEN PELVIS WO CONTRAST REASON FOR STUDY: Left mid back and chest pain since a fall 2 days ago. TECHNIQUE: CT scan of the abdomen and pelvis performed withoutintravenous and without oral contrast using helical scanning technique. Reconstructed coronal and sagittal MPR images reviewed. All images stored on PACS. Automated exposure control was used as a dose optimization technique forthis examination. COMPARISON: CT of the abdomen and pelvis from 12/12/2016. Correlationwith CT of the chest from 12/28/2020. FINDINGS: The sensitivity for detection of visceral lesions is diminished withoutthe use of intravenous contrast. LOWER CHEST: There is mild bibasilar subsegmental atelectasis. There isno pleural effusion. LIVER: The liver is normal in appearance. GALLBLADDER: The gallbladder is normal in appearance. There is no evidenceof cholelithiasis, gallbladder wall thickening, or pericholecystic fatstranding. BILE DUCTS: There is no intrahepatic or extrahepatic ductal dilatation. SPLEEN: The spleen is normal in size. There is no evidence of a focalsplenic lesion. PANCREAS: The pancreas is normal in appearance. There is no peripancreatic inflammation or fluid collection. ADRENALS: The bilateral adrenal glands are normal in appearance. KIDNEYS/URINARY TRACT: The kidneys are symmetric in size. There isexcreted iodinated contrast material in the bilateral renal collecting systems from prior same day contrast enhanced CT of the chest. There is no evidence ofa suspicious renal parenchymal mass lesion. There is a 4.4 cm benign simple cyst extending off the inferior left kidney. There is no hydronephrosis.The urinary bladder is normal in appearance. GI: Small bowel and colon are normal in caliber. There is no evidence of bowel obstruction. The appendix is normal. There is colonicdiverticulosis. There is sigmoid colonic wall thickening and pericolonic fat stranding.There is no pericolonic fluid collection. PERITONEUM: There is no ascites or pneumoperitoneum. There is nomesenteric lymphadenopathy. There is a moderate, fat-containing periumbilicalhernia. RETROPERITONEUM: There is no retroperitoneal mass or lymphadenopathy. REPRODUCTIVE: The prostate gland is enlarged and impresses on the base ofthe urinary bladder. VASCULATURE: The abdominal aorta is normal in course and caliber. There isno abdominal aortic aneurysm. There is moderate atherosclerotic calcificationof the abdominal aorta and the iliac arteries. MUSCULOSKELETAL: There are no acute or aggressive appearing osseous abnormalities. There is moderate multilevel degenerative change of the thoracolumbar spine. There is mild bilateral hip and sacroiliac joint osteoarthritis. IMPRESSION: 1. Mild acute sigmoid diverticulitis. No evidence of perforation orabscess. 2. Moderate fat-containing periumbilical hernia. 3. Prostatomegaly. THIS IS AN ELECTRONICALLY VERIFIED FINAL REPORT 12/28/2020 7:52 PM - Electronically signed by Saleem Rice M.D. AB: AB Report ID: [id number] Reading Location: [place] [address] Ford Killian MD IMG CT PROCEDURES Final Res ult * Troponin T high-sensitivity 2-hour (12/28/2020 6:26 PM CDT) Trop T hs 18 <=22 ng/L [facility] (BETTY) Comment: Interpretive Data For further hscTnT resources including the diagnostic algorithm and an aid in interpretation, copy and paste this link: https://nrl.testcatalog.org/show/hsTrop Current Interpretive Data last revised 2020. Trop T hs delta See Comment ng/L CE [facility] (BETTY) Comment:Inappropriate collec tion time to report a delta. Trop T hs pct delta See Comment % [facility] (BETTY) Comment:Inappropriate collec tion time to report a delta. Trop T hs interp See Comment Laz [facility] (BETTY) Comment:Inappropriate collec tion time to report a delta. Blood specimen (specimen) 12/28/2020 6:26 PM CDT 12/28/2020 6:43 PM CDT us Rudy CHARLES LAB BLOOD ORDERABLES Final R esult [facility] ANAHUAC) [facility] Department [place] [address] * CT Chest W Contrast (12/28/2020 5:17 PM CDT) Anatomical Region Laterality Modality Body N/A Computed Tomogra phy 12/28/2020 5:22 PM CDT Addenda Addendum by Cam Kohler MD on 12/31/2020 9:45 PM CDT ADDENDUM: ??This addendum report supersedes the original report dated 12/28/2020 There is a nondisplaced fracture of the left sixth rib anteriorly seen on image 74 with a possible nondisplaced fracture of the chondral left seventh rib anteriorly seen on image 80. ??No pneumothorax is present. THIS IS AN ELECTRONICALLY VERIFIED FINAL REPORT 12/31/2020 9:45 PM - Electronically signed by Cam Kohler M.D. LL: LL D: ??12/31/2020 9:45 PM T: ??12/31/2020 9:45 PM Report ID: [id number] Reading Location: ??[id number] Narrative 12/28/2020 5:45 PM CDT EXAM DESCRIPTION: ?? CT CHEST W CONTRAST REASON FOR STUDY: ?? Fell and landed on left side chest in bathtub 2 days ago, pain, bruising to left side of chest, patient would not lay on back, best obtainable images, optiray 320 100 20 gauge right acDuration: 2 days TECHNIQUE: ??CT scan of the chest with intravenous contrast. Reconstructed coronal and sagittal MPR images reviewed. All images stored on PACS. Automated exposure control was used as a dose optimization technique for this examination. CONTRAST TYPE/DOSE: ?? 100 of optiray 320 injected via ??right ac COMPARISON: ?? 09/09/2020 FINDINGS: The examination is limited secondary to the patient's limited ability to cooperate. ??The patient was lying on her left side. ?? LUNGS: There is left basilar atelectasis/scarring. ??No nodules or masses. No pneumonia. PLEURA: ??No effusion. No pneumothorax. MEDIASTINUM/BRIAN: ??No identified masses or abnormal nodes. HEART: ??Heart size is normal with no pericardial effusion. 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 AXILLA: ??No adenopathy. CHEST WALL: ??No masses. ??No subcutaneous air. HARDWARE/LINES/TUBES: ??None. UPPER ABDOMEN: ??Bilateral renal hypodensities are likely cysts. ??There is a 3 mm nonobstructing stone in the left kidney MUSCULOSKELETAL: ??No significant abnormality. OTHER: ??No other significant abnormality. IMPRESSION: ?? No acute disease in the chest. ??No evidence of rib fracture or pneumothorax. THIS IS AN ELECTRONICALLY VERIFIED FINAL REPORT 12/28/2020 5:45 PM - Electronically signed by Cam Kohler M.D. LL: D: ??12/28/2020 5:45 PM T: ??12/28/2020 5:45 PM Report ID: [id number] Reading Location: ??[id number] Procedure Note Cam Kohler MD - 12/28/2020 EXAM DESCRIPTION: CT CHEST W CONTRAST REASON FOR STUDY: Fell and landed on left side chest in bathtub 2 daysago, pain, bruising to left side of chest, patient would not lay on back, best obtainable images, optiray 320 100 20 gauge right acDuration: 2 days TECHNIQUE: CT scan of the chest with intravenous contrast. Reconstructed coronal and sagittal MPR images reviewed. All images stored on PACS.Automated exposure control was used as a dose optimization technique for this examination. CONTRAST TYPE/DOSE: 100 of optiray 320 injected via right ac COMPARISON: 09/09/2020 FINDINGS: The examination is limited secondary to the patient's limited ability to cooperate. The patient was lying on her left side. LUNGS: There is left basilar atelectasis/scarring. No nodules or masses.No pneumonia. PLEURA: No effusion. No pneumothorax. MEDIASTINUM/BRIAN: No identified masses or abnormal nodes. HEART: Heart size is normal with no pericardial effusion. 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 AXILLA: No adenopathy. CHEST WALL: No masses. No subcutaneous air. HARDWARE/LINES/TUBES: None. UPPER ABDOMEN: Bilateral renal hypodensities are likely cysts. There nelia 3 mm nonobstructing stone in the left kidney MUSCULOSKELETAL: No significant abnormality. OTHER: No other significant abnormality. IMPRESSION: No acute disease in the chest. No evidence of rib fractureor pneumothorax. THIS IS AN ELECTRONICALLY VERIFIED FINAL REPORT 12/28/2020 5:45 PM - Electronically signed by Cam Kohler M.D. LL: LL Report ID: [id number] Reading Location: [place] [address] PROCEDURES Edited Res ult - Final * eGFR (12/28/2020 3:17 PM CDT) eGFR 50 mL/min/1.7 3 m2 [facility] ([place]) Comment: [...] was last reviewed 2020 Blood specimen (specimen) 12/28/2020 3:17 PM CDT 12/28/2020 3:21 PM CDT us Rudy CHARLES LAB BLOOD ORDERABLES Final R esult [facility] ([place]) [facility] Department [place] [address] * Differential, auto (12/28/2020 3:17 PM CDT) Neutrophil abs 4.8 1.7 - 6.5 K/cumm [facility] ([place]) Imm gran abs 0.0 0.0 - 0.1 K/cumm [facility] ([place]) Lymphocyte abs 1.1 0.8 - 3.3 K/cumm [facility] ([place]) Monocyte abs 0.6 0.2 - 0.8 K/cumm [facility] ([place]) Eosinophil abs 0.3 0.0 - 0.5 K/cumm [facility] ([place]) Basophil abs 0.1 0.0 - 0.1 K/cumm [facility] ([place]) Neutrophil pct 68.6 % [facility] ([place]) Comment: Interpretive [...] was last revised on 2017. Lymphocyte pct 16.1 % [facility] ([place]) Comment: Interpretive Data Percent cell count reference ranges are not reported, since discordance with absolute values may lead to misinterpretation of CBC data. Current Interpretive Data was last revised on 2017. Monocyte pct 9.1 % [facility] ([place]) Comment: Interpretive Data Percent cell count reference ranges are not reported, since discordance with absolute values may lead to misinterpretation of CBC data. Current Interpretive Data was last revised on 2017. Eosinophil pct 4.3 % [facility] ([place]) Comment: Interpretive Data Percent cell count reference ranges are not reported, since discordance with absolute values may lead to misinterpretation of CBC data. Current Interpretive Data was last revised on 2017. Basophil pct 1.6 % [facility] ([place]) Comment: Interpretive Data Percent cell count reference ranges are not reported, since discordance with absolute values may lead to misinterpretation of CBC data. Current Interpretive Data was last revised on 2017. Blood specimen (specimen) 12/28/2020 3:17 PM CDT 12/28/2020 3:21 PM CDT [facility] LAB BLOOD ORDERABLES Final R esult [facility] ([place]) [address] [facility] [place] [address] * Antibody screen (12/28/2020 3:17 PM CDT) Katya, indirect, Gel Interpretation Negative ABSC [facility] ([place]) Blood specimen (specimen) 12/28/2020 3:17 PM CDT 12/28/2020 3:21 PM CDT Narrative [facility] ([place]) - 12/28/2020 4:00 PM CDT Has the patient had Daratumumab or Isatuximab in the past 6 months?->Unknown [facility] LAB BLOOD BANK TEST ORDERABL ES Final Result [facility] ([place]) [address] [facility] [place] [address] * ABO/Rh (12/28/2020 3:17 PM CDT) ABO/Rh O Positive [facility] ([place]) Blood specimen (specimen) 12/28/2020 3:17 PM CDT 12/28/2020 3:21 PM CDT Narrative [facility] ([place]) - 12/28/2020 3:59 PM CDT Has the patient had Daratumumab or Isatuximab in the past 6 months?->Unknown [facility]y [facility] LAB BLOOD BANK TEST ORDERABL ES Final Result Performing Organization Address [facility]/ZIP Co de Phone Number [facility] ([place]) 1 [facility] [place] [address] * Troponin T high-sensitivity series (baseline, 2hr, 4hr, 6hr) (12/28/2020 3:17 PM CDT) Trop T hs 17 <=22 ng/L [facility] ([place]) Comment: Interpretive Data For further hscTnT resources including the diagnostic algorithm and an aid in interpretation, copy and paste this link: https://nrl.testcatalog.org/show/hsTrop Current Interpretive Data last revised 2020. Blood specimen (specimen) 12/28/2020 3:17 PM CDT 12/28/2020 3:21 PM CDT Rudy CHAR[facility] LAB BLOOD ORDERABLES Final R esult Performing Organization Address [facility] Co de Phone Number [facility] ([place]) 1 [facility] [place] [address] * (ABNORMAL) Comprehensive metabolic panel (12/28/2020 3:17 PM CDT) Sodium 140 135 - 145 mmol/L [facility] Potassium, pl 3.8 3.3 - 4.9 mmol/L [facility] ([place]) Chloride 103 97 - 110 mmol/L [facility] ([place]) CO2 28 22 - 32 mmol/L [facility] ([place]) Anion gap 10 2 - 15 mmol/L [facility] ([place]) BUN 30(H) 8 - 25 mg/dL [facility] ([place]) Creatinine 1.39(H) 0.80 - 1.30 mg/dL [facility] ([place]) Glucose 157 70 - 199 mg/dL [facility] ([place]) [...] 1.2 mg/dL [facility] ([place]) Protein, pl 6.4(L) 6.5 - 8.5 g/dL [facility] ([place]) Albumin 3.9 3.5 - 5.0 g/dL [facility] ([place]) Alk phos 112 40 - 130 Units/L [facility] ([place]) ALT 17 7 - 55 Units/L [facility] ([place]) AST 14 10 - 50 Units/L [facility] ([place]) Comment:Slightly Hemolyzed S pecimen Blood specimen (specimen) 12/28/2020 3:17 PM CDT 12/28/2020 3:21 PM CDT [facility] LAB BLOOD ORDERABLES Final R esult [facility] [place] [address] * (ABNORMAL) CBC with auto differential (12/28/2020 3:17 PM CDT) WBC 7.0 3.8 - 9.9 K/cumm [facility] ([place]) Hgb 19.0(H) 13.0 - 17.5 g/dL [facility] ([place]) Hct 54.1(H) 38.9 - 50.3 % [facility] ([place]) Plt 156 150 - 400 K/cumm [facility] ([place]) MPV 10.7 9.1 - 12.3 fL [facility] ([place]) RBC 5.65 4.30 - 5.80 M/cumm [facility] ([place]) MCV 95.8 81.3 - 96.4 fL [facility] ([place]) MCH 33.6(H) 27.1 - 33.3 pg [facility] ([place]) MCHC 35.1 32.3 - 35.7 g/dL [facility] ([place]) RDW CV 12.2 11.1 - 14.9 % [facility] ([place]) RDW SD 43.1 35.7 - 48.1 fL [facility] ([place]) NRBC abs 0.00 0.00 - 0.01 K/cumm [facility] ([place]) Blood specimen (specimen) 12/28/2020 3:17 PM CDT 12/28/2020 3:21 PM CDT us [facility]y CHARLES LAB BLOOD ORDERABLES Final R esult [facility] ([place]) [facility] [place] [address] * ECG 12 lead (12/28/2020 2:53 PM CDT) 12/28/2020 2:53 PM CDT Narrative [facility] - 12/28/2020 4:24 PM CDT Vent Rate: 58 bpm RR Interval: 1032 msec AR Interval: 208 msec QRS Duration: 126 msec QT Interval: 414 msec QTC Interval: 410 msec P-R-T [place]: -63 - -56 - 89 degrees ECTOPIC ATRIAL BRADYCARDIA WITH FREQUENT VENTRICULAR PREMATURE COMPLEXES IN A BIGEMINAL PATTERN LEFT ANTERIOR FASCICULAR BLOCK [QRS AXIS <= -45, QR IN I, RS IN II] LEFT VENTRICULAR HYPERTROPHY AND ST-T CHANGE [VOLTAGE CRITERIA PLUS ST/T ABNORMALITY] ABNORMAL ECG Compared to 05/07/2019 frequent PVCs are new Electronically Signed By: Dr Gadiel Traore us Rudy CHARLES ECG ORDERABLES Final Result [facility] documented in this encounter Visit Diagnoses Diagnosis Fall, initial encounter- Primary Rib contusion, left, initial encounter Colitis without complication Diverticulitis of large intestine without perforation or abscess without bleeding documented in this encounter Administered Medications Inactive Administered Medications - up to 3 most recent administrations Medication Order MAR Action Action Date Dose Rate Site cefTRIAXone (ROCEPHIN) 1,000 mg/10 mL in sterile water (premix) 1,000 mg 1,000 mg, intravenous, at 600 mL/hr, Administer over 1 Minutes, Once, On Mon12/28/20 at 2005, For 1 dose, Indications: Abdominal/Pelvic InfectionIndications:Abdo lakshmi/Pelvic Infection Given 12/28/2020 8:23 PM CDT 1,000 mg 600 mL/hr HYDROcodone-acetaminophen (NORCO) 5-325 mg per tablet 2 tablet 2 tablet, oral, Once, On Mon12/28/20 at 1435, For 1 dose, Indications: PainIndications:Pain Given 12/28/2020 3:13 PM CDT 2 tablets ioversoL (OPTIRAY 320) intravenous syringe 100 mL 100 mL, intravenous, Once in imaging, contrast, Starting on Mon12/28/20 at 1703, For 1 dose Contrast Given 12/28/2020 5:03 PM CDT 100 mL ketorolac (TORADOL) 15 mg/mL injection 15 mg 15 mg, intravenous, Once, On Mon12/28/20 at 1615, For 1 dose, For Adult IV push, administer over 15 seconds, Indications: PainIndications:Pain Given 12/28/2020 4:33 PM CDT 15 mg LORazepam (ATIVAN) injection 0.5 mg 0.5 mg, intravenous, Once, On Mon12/28/20 at 1615, For 1 dose, For IV administration, dilute with equal volume of 0.9% sodium chloride. Do not exceed a rate of 2 mg/minute Given 12/28/2020 4:33 PM CDT 0.5 mg metroNIDAZOLE (FLAGYL) tablet 500 mg 500 mg, oral, Once, On Mon12/28/20 at 2006, For 1 dose, Indications: Abdominal/Pelvic InfectionIndications:Abdo lakshmi/Pelvic Infection Given 12/28/2020 8:22 PM CDT 500 mg documented in this encounter Discontinued Medications Medication Sig Discontinue Reason Start Date End Da te metroNIDAZOLE (FLAGYL) 500 mg tablet Take 1 tablet (500 mg total) by mouth 2 (two) times a day for 7 days Reorder 12/28/2020 12/28/2020 sulfamethoxazole-trimeth oprim (BACTRIM DS) 800-160 mg per tablet Take 1 tablet by mouth 2 (two) times a day for 7 days smx-tmp DS (BACTRIM) 800-160 mg tabs Reorder 12/28/2020 12/28/2020 documented as of this encounter Active and Recently Administered Medications Times are shown in CDT. Scheduled Medication Order 12/26/2020 12/27/2020 12/28/2020 cefTRIAXone (ROCEPHIN) 1,000 mg/10 mL in sterile water (premix) 1,000 mg (COMPLETED) 1,000 mg, intravenous, at 600 mL/hr, Administer over 1 Minutes, Once, On Mon12/28/20 at 2005, For 1 dose, Indications: Abdominal/Pelvic Infection 2022 (Given - Provid er: Clarence Khan RN) HYDROcodone-acetaminophen (NORCO) 5-325 mg per tablet 2 tablet (COMPLETED) 2 tablet, oral, Once, On Mon12/28/20 at 1435, For 1 dose, Indications: Pain 1513 (Given - Provid er: Wihtley Blackwell RN) ketorolac (TORADOL) 15 mg/mL injection 15 mg (COMPLETED) 15 mg, intravenous, Once, On Mon12/28/20 at 1615, For 1 dose, For Adult IV push, administer over 15 seconds, Indications: Pain 1633 (Given - Provid er: Whitley Blackwell RN) LORazepam (ATIVAN) injection 0.5 mg (COMPLETED) 0.5 mg, intravenous, Once, On Mon12/28/20 at 1615, For 1 dose, For IV administration, dilute with equal volume of 0.9% sodium chloride. Do not exceed a rate of 2 mg/minute 1633 (Given - Provid er: Whitley Blackwell RN) metroNIDAZOLE (FLAGYL) tablet 500 mg (COMPLETED) 500 mg, oral, Once, On 12/28/20 at 2006, For 1 dose, Indications: Abdominal/Pelvic Infection 2021 (Given - Provid er: Clarence Khan RN) PRN Medication Order 12/26/2020 12/27/2020 12/28/2020 ioversoL (OPTIRAY 320) intravenous syringe 100 mL (COMPLETED) 100 mL, intravenous, Once in imaging, contrast, Starting on Mon12/28/20 at 1703, For 1 dose 1703 (Contrast Given - Provider: Negar German, RT - Comment: [id number] 09/22) documented in this encounter Orders Medications Ordered That Reg ht Not Have Been Administered Count Last Ordered Date First Ordered Date ioversoL (OPTIRAY 320) intra venous syringe 100 mL 1 12/28/2020 IV Count Last Ordered Date First Orde red Date SALINE LOCK IV 1 12/28/2020 documented in this encounter Care Teams Software Developer Intern Relationship Specialty Start Date End Date Wesley Em MD PCP - General 09/30/16 12/01/21 Trey Pinedo MD [address] [facility] [address] [place] [address] [place] [address] [address] Consulting Physician Neurology 05/09/19 documented as of this encounter
--- OUTSIDE RECORDS SUMMARY | 2024-06-18 18:11 | XMS_ITS | Encounter Summary ---
Author Organization [facility] Healthcare Address [address] [place] [address] Care Team Providers Care Nuclear Supervising Operator Name Role Phone Wesley Em MD Primary Care Provider [phone] Trey Pinedo MD Unavailable [phone] Reason for Visit * Reason Comments OP Infusion Here for phlebotomy. Hematocrit 53.4 on 01/26. 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 Figueroa's orders. His Hematocrit resulted in 53.4% on 01/26/2021. After the donormatic machine was started and calibrated, phlebotomy was started at 12:15 in his left, outer antecubital vein. Site was covered with 4x4 gauze squares, that were taped securely oversite. Patient was given some orange juice to drink. At 12:40, phlebotomy completed. Donormatic machine stopped and the needle was removed. Patient held pressure to site for a few minutes, then site was wrapped with Coband. Patient rested for about 20 minutes, and finished drinking his orange juice.His blood pressure was taken at 13:05 and it registered 107/63. Patient stood up and reported he felt okay . He denied dizziness or light headedness. He was given a copy of his AVS, and left in stable condition and ambulated to the waiting room to meet up with his ride. documented in this encounter Plan of Treatment Not on file documented as of this encounter Visit Diagnoses Diagnosis Polycythemia- Primary Polycythemia, secondary documented in this encounter Orders Nursing Count Last Ordered Date First Orde red Date ONCBCN THERAPEUTIC PHLEBOTOMY 1 01/28/2021 documented in this encounter Care Teams Nuclear Supervising Operator Relationship Specialty Start Date End Date Wesley Em MD PCP - General 09/30/16 12/01/21 Trey Pinedo MD [address] [facility] [address] [place] [address] [facility] [place] [address] Consulting Physician Neurology 05/09/19 documented as of this encounter
--- OUTSIDE RECORDS SUMMARY | 2024-06-18 18:11 | XMS_ITS | Encounter Summary ---
Author Organization [facility] Medical Group Address [address] [place] [address] Care Team Providers Care Acid Supervisor Name Role Phone Wesley Em MD Primary Care Provider [phone] Trey Pinedo MD Unavailable [phone] Encounter Details Date Type Department Care Team (Late st Contact Info) Description 08/31/2020 Telephone [facility] [address] [place] [address] Wesley Em MD [address] [place] [address] [address] [place], [place] [id number] Social History Tobacco Use Types Packs/Day Years Used Date Smoking Tobacco: Former Cigarettes 0.1 50 1 379 - 2009 Smokeless Tobacco: Never Alcohol Use Standard Drinks/Week Comments No 0 (1 standard drink = 0.6 oz pur e alcohol) PHQ-2 Answer Date Recorded PHQ-2 Total Score (If total score is 3 or more points, staff should administer the PHQ-9) 0 08/27/2020 Sex and Gender Information Value Date Recorded Sex Assigned at Not on file Legal Sex Male 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 Gender Identity Not on file Sexual Orientation Straight 01/23/2021 10 :16 PM CDT documented as of this encounter Miscellaneous Notes * Addendum Note - Martha Alejo MA - 09/01/2020 3:06 PM CSTAddended by: MARTHA ALEJO on: 09/01/2020 03:06 PM Modules accepted: Orders INAL 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 * Telephone Encounter - Martha Alejo MA - 09/01/2020 3:05 PM 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 Patient aware lab order placed for [facility] sent to referrals INAL 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 * Addendum Note - Martha Alejo MA - 09/01/2020 12:10 PM CSTAddended by: MARTHA ALEJO on: 09/01/2020 12:10 PM Modules accepted: Orders INAL 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 * Telephone Encounter - Martha Alejo MA - 08/31/2020 3:02 PM 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 LMOM for patient to call office, Please transfer call to [facility] 2 INAL 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 * Telephone Encounter - Martha Alejo MA - 08/31/2020 2:57 PM 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 ----- Message from Wesley Em MD sent at 08/31/2020 8:13 AM 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 ----- Patient has elevated red blood cells this is consistent with a diagnosis of polycythemia have the patient do pulmonary function test and 6 minutes walk test have the patient check serum EPO level andcarboxyhemoglobin level and also schedule sleep study Diagnosis polycythemia INAL 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 documented in this encounter Plan of Treatment Not on file documented as of this encounter Visit Diagnoses Diagnosis Polycythemia- Primary Polycythemia, secondary documented in this encounter Care Teams Acid Supervisor Relationship Specialty Start Date End Date Wesley Em MD PCP - General 09/30/16 12/01/21 Trey Pinedo MD [address] [facility] [address] [place] [address] Consulting Physician Neurology 05/09/19 documented as of this encounter
--- OUTSIDE RECORDS SUMMARY | 2024-06-18 18:12 | XMS_ITS | Encounter Summary ---
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
--- OUTSIDE RECORDS SUMMARY | 2024-06-18 18:12 | XMS_ITS | Encounter Summary ---
Author Organization [facility] Medical Group Address [address] [place] [address] Care Team Providers Care Solution Maker Name Role Phone Wesley Em MD Primary Care Provider [phone] Trey Pinedo MD Unavailable [phone] Encounter Details Date Type Department Care Team (Late st Contact Info) Description 05/21/2019 Telephone [facility] [address] [facility] [address] [place] [address] Wesley Em MD [address] [place] [address] [address] [place] [address] Social History Tobacco Use Types Packs/Day Years Used Date Smoking Tobacco: Former Cigarettes 0.1 50 1 519 - 2009 Smokeless Tobacco: Never Alcohol Use Standard Drinks/Week Comments No 0 (1 standard drink = 0.6 oz pur e alcohol) PHQ-2 Answer Date Recorded PHQ-2 Score 0 02/22/2019 Sex and Gender Information Value Date Recorded Sex Assigned at Not on file Legal 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 ITY AIDE * Telephone Encounter - Stella Bucio MA - 05/22/2019 12:19 PM CST lmom ITY AIDE * Telephone Encounter - Stella Bucio MA - 05/21/2019 2:02 PM CST lmom ITY AIDE * Telephone Encounter - Clary Peters NP - 05/21/2019 1:12 PM CST The ultrasound of his carotids was ordered to complete in 1 year. ITY AIDE * Telephone Encounter - Barbara Musa MA - 05/21/2019 12:45 PM UTILITY AIDE mkb ITY AIDE * Telephone Encounter - Grace Redmond - 05/21/2019 12:09 PM CST Pt calling in regards to US Carotids ordered yesterday after pts appt with Clary. Pt asking if this is something pt is supposed to wait until next year to have done or if it is somethinghe is supposed to have done sooner than later. Please advise. ITY AIDE documented in this encounter Plan of Treatment Not on file documented as of this encounter Visit Diagnoses Not on filedocumented in this encounter Care Teams Solution Maker Relationship Specialty Start Date End Date eWsley Em MD PCP - General 09/30/16 12/01/21 Trey Pinedo MD [address] [place] [address] [place] [address] Consulting Physician Neurology 05/09/19 documented as of this encounter
--- OUTSIDE RECORDS SUMMARY | 2024-06-18 18:12 | XMS_ITS | Encounter Summary ---
Author Organization [facility] Medical [facility] Address [address] [place] [address] Care Team Providers Care Extrusion Die Template Maker Name Role Phone Wesley Em MD Primary Care Provider [phone] Trey Pinedo MD Unavailable [phone] Encounter Details Date Type Department Care Team (Late st Contact Info) Description 08/15/2019 Telephone [facility] 2 [facility] [address] [place] [address] Wesley Em MD [address] [place] [id number] Social History Tobacco Use Types Packs/Day Years Used Date Smoking Tobacco: Former Cigarettes 0.1 50 1 829 - 2009 Smokeless Tobacco: Never Alcohol Use Standard Drinks/Week Comments No 0 (1 standard drink = 0.6 oz pur e alcohol) PHQ-2 Answer Date Recorded PHQ-2 Score 0 02/22/2019 Sex and Gender Information Value Date Recorded Sex Assigned at Not on file Legal Sex Male 6:00 PM WIND ENERGY TECHNICIAN Gender Identity Not on file Sexual Orientation Straight 01/23/2021 10 :16 PM CDT documented as of this encounter Miscellaneous Notes * Telephone Encounter - Martha Sutton MA - 08/15/2019 3:01 PM WIND ENERGY TECHNICIAN patient aware appt made for 08/16/19 with Graham ENERGY TECHNICIAN * Telephone Encounter - Wesley Em MD - 08/15/2019 2:24 PM CST Have the patient take the valsartan 40 mg twice daily long with the metoprolol 25 twice daily see flatbed driver tomorrow to check blood pressure ENERGY TECHNICIAN * Telephone Encounter - Delmi Cooper - 08/15/2019 1:39 PM CST please advise ENERGY TECHNICIAN * Telephone Encounter - Sepideh Roberts - 08/15/2019 12:20 PM CST Pt saw Dr. Em yesterday and he wanted him to start on a high bp med, and see him again next week. He has only taken his med twice, but said his bp is almost higher than it was. It was 185/110 thisam before meds, and after he took his med, it was 184/79. He wondered if JR might want to see him today or sooner? Please advise. ENERGY TECHNICIAN documented in this encounter Plan of Treatment Not on file documented as of this encounter Visit Diagnoses Not on filedocumented in this encounter Care Teams Extrusion Die Template Maker Relationship Specialty Start Date End Date Wesley Em MD PCP - General 09/30/16 12/01/21 Trey Pinedo MD [address] [place] [address] [place] [address] Consulting Physician Neurology 05/09/19 documented as of this encounter
--- OUTSIDE RECORDS SUMMARY | 2024-06-18 18:12 | XMS_ITS | Encounter Summary ---
Author Organization [facility] Medical [facility] Address [address] [place] [address] Care Team Providers Care Tanning Consultant Name Role Phone Wesley Em MD Primary Care Provider [phone] Trey Pinedo MD Unavailable [phone] Encounter Details Date Type Department Care Team (Late st Contact Info) Description 10/18/2019 Orders Only [facility] 2 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 No / Unsure 09/24/2019 1:05 PM CDT documented as of this encounter Plan of Treatment Not on file documented as of this encounter Results * (ABNORMAL) Iron profile w/ IBC (10/18/2019 9:04 AM CDT) Pathologist [facility] Iron 128 50 - 150 mcg/dl [facility] TIBC 240(L) 250 - 400 mcg/dL [facility] Transferrin saturation 53(H) 20 - 50 % [facility] Blood specimen (specimen) 10/18/2019 9:04 AM CDT 10/18/2019 5:27 PM CDT us Clary Peters NP LAB BLOOD ORDERABLES Final R esult [facility] [address] Department [place] [address] * (ABNORMAL) CBC with auto differential (10/18/2019 9:04 AM CDT) Pathologist [facility] WBC 7.0 3.8 - 9.9 K/cumm [facility] Hgb 19.3(H) 13.0 - 17.5 g/dL [facility] Hct 55.9(H) 38.9 - 50.3 % [facility] Plt 156 150 - 400 K/[facility]umm [facility] MPV 10.6 9.1 - 12.3 fL [facility] RBC 5.72 4.30 - 5.80 M/cumm [facility] MCV 97.7(H) 81.3 - 96.4 fL [facility] MCH 33.7(H) 27.1 - 33.3 pg [facility] MCHC 34.5 32.3 - 35.7 g/dL [facility] RDW CV 12.9 11.1 - 14.9 % [facility] RDW SD 46.5 35.7 - 48.1 fL [facility] NRBC abs 0.00 0.00 - 0.01 K/cumm [facility] Blood specimen (specimen) 10/18/2019 9:04 AM CDT 10/18/2019 5:27 PM CDT us Clary Peters LANDSCAPE ARTIST LAB BLOOD ORDERABLES Final R esult [facility] [place] [address] Department [place] [address] documented in this encounter Visit Diagnoses Diagnosis Erythrocytosis- Primary Polycythemia, secondary documented in this encounter Care Teams Tanning Consultant Relationship Specialty Start Date End Date Wesley Em MD PCP - General 09/30/16 12/01/21 Trey Pinedo MD [address] [place] [place] [address] [address] Consulting Physician Neurology 05/09/19 documented as of this encounter
--- OUTSIDE RECORDS SUMMARY | 2024-06-18 18:12 | XMS_ITS | Encounter Summary ---
Author Organization [facility] Medical [facility] Address [address] [place] [address] Care Team Providers Care Mailing Section Clerk Name Role Phone eWsley Em MD Primary Care Provider [phone] Trey Pinedo MD Unavailable [phone] Reason for Visit * Reason Comments Hypertension 1 week f/u Encounter Details Date Type Department Care Team (Late st Contact Info) Description 08/20/2019 1:15 PM WASH DRILLER Office Visit [facility] [address] [facility] [address] [facility] [address] [place] [address] Wesley Em MD [address] [place] [address] [address] [place] [address] Essential hypertension (Primary Dx); Body mass index (bmi) 29.0-29.9, adult Social History Tobacco Use Types Packs/Day Years [...] on file Legal 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 Gender Identity Not on file Sexual Orientation Straight 01/23/2021 10 :16 PM CDT documented as of this encounter Last Filed Vital Signs Vital Sign Reading Time Taken Comments Blood Pressure 148/78 08/20/2019 1:21 PM WASH DRILLER Pulse 60 08/20/2019 1:21 PM WASH DRILLER Temperature - - Respiratory Rate 20 08/20/2019 1:21 PM WASH DRILLER Oxygen Saturation - - Inhaled Oxygen Concentration - - Weight 94.8 kg (209 lb) 08/20/2019 1:21 PM WASH DRILLER Height 177.8 cm (5' 10 ) 08/20/2019 1:21 PM WASH DRILLER Body Mass Index 29.99 08/20/2019 1:21 PM WASH DRILLER documented in this encounter Ordered Prescriptions Prescription Sig Dispense Quantity Refills Last Filled Start Date End Date metoprolol (LOPRESSOR) 25 mg tablet Take 1 tablet (25 mg total) by mouth 2 (two) times a day 180 tablet 3 08/20/2019 07/14/2020 cloNIDine (CATAPRES-TTS) 0.1 mg/24 hrIndications:hype rtension Place 0.1 mg on the skin once a week 12 patch 3 08/20/2019 11/20/2019 valsartan (DIOVAN) 160 mg tablet Take 1 tablet (160 mg total) by mouth daily 90 tablet 3 08/20/2019 03/09/2021 documented in this encounter Progress Notes * Wesley Em MD - 08/20/2019 1:15 PM CST Subjective/Objective Patient ID: Villa Zuniga is a 73 y.o. male. Chief Complaint Hypertension (1 week f/u) HPI Patient returns today for uncontrolled hypertension he is on clonidine tolerating pretty well no significant Rj cardia patient understand that the use of beta-johanne and clonidine could slowdown his heart rate consider wheezes far he is tolerating it well his blood pressure still remains on the high side he does have little dry mouth with the clonidine but nothing too bad he is on the patch TTS 1 patch weekly cost about 30 books monthly states he wants to stay on it instead of using the tablets Review of Systems Vitals: 08/20/19 1321 BP: 148/78 BP Location: Left arm Patient Position: Sitting Pulse: 60 Resp: 20 Weight: 94.8 kg (209 lb) Height: 177.8 cm (5' 10 ) Physical Exam His blood pressure confirmed lungs are clear no rales rhonchi or wheezes cardiovascular is regular without murmurs gallops clicks rubs the abdomen soft and nontender extremities no edema no cords Homans signs negative Assessment/Plan Diagnoses and all orders for this visit: Essential hypertension (Primary) Will going to increase his valsartan gradually to 1/2 60 daily he is currently taking 80 he will start taking 120 and then up to 160 daily Body mass index (bmi) 29.0-29.9, adult The importance of weight loss discussed with patient he will work will harder on diet Other orders - valsartan (DIOVAN) 160 mg tablet; Take 1 tablet (160 mg total) by mouth daily - cloNIDine (CATAPRES-TTS) 0.1 mg/24 hr; Place 0.1 mg on the skin once a week - metoprolol (LOPRESSOR) 25 mg tablet; Take 1 tablet (25 mg total) by mouth 2 (two) times a day His current medications will be valsartan 160 daily clonidine 0.1 patch weekly metoprolol 25 twice daily Patient will see back in 1 month Patient is following up with Urology Simon Bucio for his kidney stones and prostate health Side effects, risks, interactions reviewed with patient. Indications for testing discussed. Any further problems to contact us. He was told what to look out for and verbalized understanding. The patient was given the opportunity to have all questions answered today and was in agreement with the plan of care. DRILLER DRILLER documented in this encounter Plan of Treatment Not on file documented as of this encounter Visit Diagnoses Diagnosis Essential hypertension- Primary Unspecified essential hypertension Body mass index (bmi) 29.0-29.9, adult documented in this encounter Discontinued Medications Medication Sig Discontinue Reason Start Date End Da te valsartan (DIOVAN) 40 mg tablet Take 1 tablet (40 mg total) by mouth daily 08/13/2019 08/20/2019 cloNIDine (CATAPRES-TTS) 0.1 mg/[address] 0.1 mg on the skin once a week for 4 doses Reorder 08/16/2019 08/20/2019 metoprolol (LOPRESSOR) 25 mg tablet Take 1 tablet (25 mg total) by mouth daily Reorder 06/04/2019 08/20/2019 bisacodyl 5 mg tablet Take by mouth 08/20/2019 mupirocin (BACTROBAN) 2 % cream Apply topically 3 (three) times a day 08/20/2019 documented as of this encounter Care Teams Mailing Section Clerk Relationship Specialty Start Date End Date Wesley Em MD PCP - General 09/30/16 12/01/21 Trey Pinedo MD [address] [facility] [address] [address] [facility] [place] [address] Consulting Physician Neurology 05/09/19 documented as of this encounter
--- OUTSIDE RECORDS SUMMARY | 2024-06-18 18:12 | XMS_ITS | Encounter Summary ---
Author Organization 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 No / Unsure 09/20/2019 9:32 AM CDT documented as of this encounter Plan of Treatment Not on file documented as of this encounter Visit Diagnoses Not on filedocumented in this encounter Care Teams Boatswain Mate Relationship Specialty Start Date End Date Wesley Em MD PCP - General 09/30/16 12/01/21 Trey Pinedo MD [address] [place] [address] Consulting Physician Neurology 05/09/19 documented as of this encounter
--- OUTSIDE RECORDS SUMMARY | 2024-06-18 18:12 | XMS_ITS | Encounter Summary ---
Author Organization [facility] Medical Group Address [address] [place] [address] Care Team Providers Care Custom Miller Name Role Phone Wesley Em MD Primary Care Provider [phone] Trey Pinedo MD Unavailable [phone] Reason for Visit * Reason Comments Medicare Annual Wellness Visit Subsequen t medicare wellness Encounter Details Date Type Department Care Team (Late st Contact Info) Description 10/25/2019 11:30 AM CDT Office Visit [facility] [address] [place] [address] Wesley Em MD [address] [place] [address] [address] [place] [address] Medicare annual wellness visit, subsequent (Primary Dx); Class 1 obesity with body mass index (BMI) of 30.0 to 30.9 in adult, unspecified obesity type, unspecified whether serious comorbidity present; Essential hypertension; Bilateral carotid artery stenosis; Polycythemia; Mixed hyperlipidemia; 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; Type 2 diabetes mellitus with hyperlipidemia ([facility]/HCC) Social History Tobacco Use Types Packs/Day Years [...] file 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 Gender Identity Not on file Sexual Orientation Straight 01/23/2021 10 :16 PM CDT documented as of this encounter Last Filed Vital Signs Vital Sign Reading Time Taken Comments Blood Pressure 122/80 10/25/2019 11:35 AM CDT Pulse 60 10/25/2019 11:35 AM CDT Temperature - - Respiratory Rate 22 10/25/2019 11:35 AM CDT Oxygen Saturation - - Inhaled Oxygen Concentration - - Weight 95.7 kg (211 lb) 10/25/2019 11:35 AM CDT Height 177.8 cm (5' 10 ) 10/25/2019 11:35 AM CDT Body Mass Index 30.28 10/25/2019 11:35 AM CDT documented in this encounter Progress Notes * Wesley Em MD - 10/25/2019 11:30 AM CDT Subjective/Objective Patient ID: Villa Zuniga is a 74 y.o. male. Chief Complaint Medicare Annual Wellness Visit Subsequent (medicare wellness) HPI 74-year-old gentleman seen today for follow-up well examination has multiple medical problems including diabetes hypertension hyperlipidemia carotid artery disease polycythemia COPD history of heavy tobacco abuse increased cardiac risk history of colon polyps Patient states he sees his business continuity strategy director Dr. katherin solis on a regular basis he has had 3 stents put in hehas had no chest pain orthopnea no PND doing well Patient also sees Dr. Bucio urologist for history of kidney stones and BPH he does have a rising PSA and PSA will be obtained today we did discuss the possibly of prostate cancer his PSA of over 1.5 and the new recommendations from [facility] he states he will discuss it further with Dr. Bucio He does have polycythemia and the patient states he is to see Dr. Molina he treated for polycythemia vera that he went to another oncologist with Dr. Molina got sick and that oncologist told him he did not have polycythemia vera and is no longer under treatment even with a hemoglobin of 19.3 on hisrecent lab work He has longstanding hypertension is blood pressure is under good control with blood pressure today 122/80 compliant with his medication He does have a long history of tobacco abuse quit smoking several years ago but gets a low-dose CT scan every January at [facility] he has had a CT of the abdomen pelvis done before that revealed no aneurysm as well in the aorta He refuses all immunizations risk benefits of immunizations discussed with him but he still refusesall He also has a history of Mayo's esophagus and is due back this year for EGD for follow-up Patient is grown children Summer is a patient here in the practice he worked [employer] for number of years in fact 40 years Review of Systems Review of [...] ideation hematological no bleeding or bruising Vitals: 10/25/19 1135 BP: 122/80 BP Location: Left arm Patient Position: Sitting Pulse: 60 Resp: 22 Weight: 95.7 kg (211 lb) Height: 177.8 cm (5' 10 ) Physical Exam Feet: Right Foot: Monofilament exam: normal. Left Foot: Monofilament exam: normal. HEAD: normocephalic and atraumatic the pupils are equal round and reactive to light accommodation EOMI fundi and TMs are normal tongue and uvula is midline NECK: supple without bruits, adenopathy, masses or JVD there is no thyromegaly or nodules CARDIO: S1-S2 without murmurs gallops clicks or rubs THORAX : clear to a and P no rales rhonchi or wheezes no axillary adenopathy ABDOMEN : soft and nontender with normal bowel sounds no enlargement of liver spleen there is no bruits or masses EXTREMITIES: no edema or cyanosis with good pulses throughout full range of motion throughout NEURO : cranial nerves 2-12 were intact muscle strength is 5 5 throughout DTRs are 2/4 throughout toe signs are downgoing gait normal SKIN no suspicious lesions ecchymosis or petechiae Assessment/Plan Diagnoses and all orders for this visit: Medicare annual wellness visit, subsequent (Primary) Patient get a PSA test today he does not know if he gets his PSA checked with his urologist or not so going into it I recommend he discuss that level with his urologist regarding the need for evaluation for prostate cancer will follow-up with Urology for his kidney stones as well He changes mind about vaccinations let us know Class 1 obesity with body mass index (BMI) of 30.0 to 30.9 in adult, unspecified obesity type, unspecified whether serious comorbidity present The importance of diet exercise for disease control his diabetes discussed with patient at length Essential hypertension Blood pressure under good control with current therapy with current regimen continue same Bilateral carotid artery stenosis Recommend carotid Dopplers yearly Polycythemia Will investigate previous heme Onc consultation Mixed hyperlipidemia Continue statin therapy 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 EGD due this year get set up for this DIABETES A1c test 6.5 doing well with current therapy Patient return 4 months lab work 1 week at a time will get a CT scan of the chest low-dose at [facility] for lung cancer screening January along with carotid Dopplers the same day will do blood work 1 week before his appointment 4 months Side effects, risks, interactions reviewed with [...] Diagnosis Medicare annual wellness visit, subsequent- Primary Class 1 obesity with body mass index (BMI) of 30.0 to 30.9 in adult, unspecified obesity type, unspecified whether serious comorbidity present Essential hypertension Unspecified essential hypertension Bilateral carotid artery stenosis Occlusion and stenosis of carotid artery without mention of cerebral infarction Polycythemia Polycythemia, secondary Mixed hyperlipidemia 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
--- OUTSIDE RECORDS SUMMARY | 2024-06-18 18:12 | XMS_ITS | Encounter Summary ---
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) Social History Tobacco Use Types Packs/Day [...] on file 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 Gender Identity Not on file Sexual Orientation [...] as of this encounter Visit Diagnoses Diagnosis 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
--- OUTSIDE RECORDS SUMMARY | 2024-06-18 18:12 | XMS_ITS | Encounter Summary ---
Author Organization 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 No / Unsure 09/19/2019 9:16 AM CDT documented as of this encounter Plan of Treatment Not on file documented as of this encounter Visit Diagnoses Not on filedocumented in this encounter Care Teams Inspector Of Weights And Measures Relationship Specialty Start Date End Date Wesley Em MD PCP - General 09/30/16 12/01/21 Trey Pinedo MD [address] [place] [address] Consulting Physician Neurology 05/09/19 documented as of this encounter
--- OUTSIDE RECORDS SUMMARY | 2024-06-18 18:12 | XMS_ITS | Encounter Summary ---
Author Organization [facility] Healthcare Address [address] [place] [address] Care Team Providers Care Checkerer Hand Name Role Phone Wesley Em MD Primary Care Provider [phone] Trey Pinedo MD Unavailable [phone] Encounter Details Date Type Department Care Team (Late st Contact Info) Description 05/20/2019 4:50 PM MODEL MAKER PLASTER Lab [address] [address] Erythrocytosis Social History Tobacco Use Types Packs/Day Years Used Date Smoking Tobacco: Former Cigarettes 0.1 50 1 369 - 2009 Smokeless Tobacco: Never Alcohol Use Standard Drinks/Week Comments No 0 (1 standard drink = 0.6 oz pur e alcohol) PHQ-2 Answer Date Recorded PHQ-2 Score 0 02/22/2019 Sex and Gender Information Value Date Recorded Sex Assigned at Not on file Legal Sex Male 6:00 PM MODEL MAKER PLASTER Gender Identity Not on file Sexual Orientation Straight 01/23/2021 10 :16 PM CDT documented as of this encounter Progress Notes * Clary Peters NP - 05/20/2019 4:50 PM CST Please call Villa letting him know his RBC count is gradually reducing back to his NL. Thank you L MAKER PLASTER documented in this encounter Plan of Treatment Not on file documented as of this encounter Procedures Procedure Name Priority Date/Time Associated Diagnosis Comments DIFFERENTIAL AUTO Routine 05/20/2019 10: 33 AM MODEL MAKER PLASTER Erythrocytosis IRON PROFILE W/ IBC Routine 05/20/2019 1 0:33 AM MODEL MAKER PLASTER Erythrocytosis CBC WITH AUTO DIFFERENTIAL Routine 05/20/2019 10:33 AM MODEL MAKER PLASTER Erythrocytosis documented in this encounter Results * Differential, auto (05/20/2019 10:33 AM MODEL MAKER PLASTER) Neutrophil abs 5.1 1.7 - 6.5 K/cumm [facility] Imm gran abs 0.0 0.0 - 0.1 K/cumm [facility] Lymphocyte abs 1.1 0.8 - 3.3 K/cumm [facility] Monocyte abs 0.7 0.2 - 0.8 K/cumm [facility] Eosinophil abs 0.2 0.0 - 0.5 K/cumm [facility] Basophil abs 0.1 0.0 - 0.1 K/cumm [facility] Neutrophil pct 70.1 % [facility] Comment: Interpretive Data Percent cell count reference ranges are not reported, since discordance with absolute values may lead to misinterpretation of CBC data. Current Interpretive Data was last revised on 2017. Imm gran pct 0.4 % [facility] Comment: Interpretive Data Percent cell count reference ranges are not reported, since discordance with absolute values may lead to misinterpretation of CBC data. Current Interpretive Data was last revised on 2017. Lymphocyte pct 15.1 % [facility] Comment: Interpretive Data Percent cell count reference ranges are not reported, since discordance with absolute values may lead to misinterpretation of CBC data. Current Interpretive Data was last revised on 2017. Monocyte pct 9.6 % [facility] Comment: Interpretive Data Percent cell count reference ranges are not reported, since discordance with absolute values may lead to misinterpretation of CBC data. Current Interpretive Data was last revised on 2017. Eosinophil pct 3.2 % [facility] Comment: Interpretive Data Percent cell count reference ranges are not reported, since discordance with absolute values may lead to misinterpretation of CBC data. Current Interpretive Data was last revised on 2017. Basophil pct 1.6 % [facility] Comment: Interpretive Data Percent cell count reference ranges are not reported, since discordance with absolute values may lead to misinterpretation of CBC data. Current Interpretive Data was last revised on 2017. Blood specimen (specimen) 05/20/2019 10:33 AM MODEL MAKER PLASTER 05/20/2019 4:52 PM MODEL MAKER PLASTER Clary Peters FOOD PRODUCTS SALES 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 LAB BLOOD ORDERABLES Final R esult Performing Organization Address City/[facility]/ZIP Co de Phone Number [facility] [place] [address] [address] [place] [address] * (ABNORMAL) CBC with auto differential (05/20/2019 10:33 AM MODEL MAKER PLASTER) WBC 7.3 3.8 - 9.9 K/cumm [facility] Hgb 18.9(H) 13.0 - 17.5 g/dL [facility] Hct 55.6(H) 38.9 - 50.3 % [facility] Plt 158 150 - 400 K/cumm [facility] MPV 10.8 9.1 - 12.3 fL [facility] RBC 5.71 4.30 - 5.80 M/cumm [facility] MCV 97.4(H) 81.3 - 96.4 fL [facility] MCH 33.1 27.1 - 33.3 pg [facility] MCHC 34.0 32.3 - 35.7 g/dL [facility] RDW CV 12.7 11.1 - 14.9 % [facility] RDW SD 45.2 35.7 - 48.1 fL [facility] NRBC abs 0.00 0.00 - 0.01 K/cumm [facility] Blood specimen (specimen) 05/20/2019 10:33 AM MODEL MAKER PLASTER 05/20/2019 4:52 PM MODEL MAKER PLASTER Clary Peters NP LAB BLOOD ORDERABLES Final R esult Performing Organization Address City/[facility]/ZIP Co de Phone Number [place] [address] [address] Department of Laboratories [place] [phone] * (ABNORMAL) Iron profile w/ IBC (05/20/2019 10:33 AM MODEL MAKER PLASTER) Iron 159(H) 50 - 150 mcg/dl [facility] TIBC 246(L) 250 - 400 mcg/dL [facility] Transferrin saturation 65(H) 20 - 50 % [facility] Blood specimen (specimen) 05/20/2019 10:33 AM MODEL MAKER PLASTER 05/20/2019 4:52 PM MODEL MAKER PLASTER Clary Peters FOOD PRODUCTS SALES 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 LAB BLOOD ORDERABLES Final R esult [facility] [address] [address] [place] [address] documented in this encounter Visit Diagnoses Diagnosis Erythrocytosis Polycythemia, secondary documented in this encounter Care Teams Checkerer Hand Relationship Specialty Start Date End Date Wesley Em MD PCP - General 09/30/16 12/01/21 Trey Pinedo MD [address] [place] [address] Consulting Physician Neurology 05/09/19 documented as of this encounter
--- OUTSIDE RECORDS SUMMARY | 2024-06-18 18:12 | XMS_ITS | Encounter Summary ---
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
--- OUTSIDE RECORDS SUMMARY | 2024-06-18 18:12 | XMS_ITS | Encounter Summary ---
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 No / Unsure 09/20/2019 9:32 AM CDT documented as of this encounter Miscellaneous Notes * Result Encounter Note - Clary Peters, CROP PULLER - 09/20/2019 2:44 PM CDT Please let Pt know that he is right at the cusp of being diagnosed with DM. Please on all discussedthis with Dr. Em before his upcoming visit next week so they can discuss further. Thanks documented in this encounter Plan of Treatment Not on file documented as of this encounter Procedures Procedure Name Priority Date/Time Associated Diagnosis Comments HEMOGLOBIN A1C Routine 09/20/2019 9:01 AM CDT Type 2 diabetes mellitus with hyperlipidemia (CMS/HCC) documented in this encounter Results * (ABNORMAL) Hemoglobin A1c (09/20/2019 9:01 AM CDT) Hgb A1C 6.5(H) 4.0 - 5.6 % [facility] Estimated Average Glucose 140 mg/dL [facility] Comment: The ADA recommends reporting an estimated Average Glucose (eAG) with all Hemoglobin A1c results using the equation derived from a study of 507 normal and diabetic adults. ??Minority populations were underrepresented and children were not included. ?? (Diabetes Care 31:0983-7719, 2008). ??The eAG is not equivalent to a fasting glucose. Blood specimen (specimen) 09/20/2019 9:01 AM CDT 09/20/2019 12:30 PM CDT us Clary Peters NP LAB BLOOD ORDERABLES Final R esult [facility] [address] [facility] Department [place] [address] documented in this encounter Visit Diagnoses Diagnosis Type 2 diabetes mellitus with hyperlipidemia (HCC) documented in this encounter Care Teams Wind Development Director Relationship Specialty Start Date End Date Wesley Em MD PCP - General 09/30/16 12/01/21 Trey Pinedo MD [address] [place] [address] [address] [facility] [facility] [place] [address] Consulting Physician Neurology 05/09/19 documented as of this encounter
--- OUTSIDE RECORDS SUMMARY | 2024-06-18 18:12 | XMS_ITS | Encounter Summary ---
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 No / Unsure 09/24/2019 1:05 PM CDT documented as of this encounter Miscellaneous Notes * Telephone Encounter - Teresita Moses MA - 10/21/2019 11:54 AM CDT Patient aware * Telephone Encounter - Whitney Orellana MA - 10/21/2019 11:34 AM CDT lmomtrc * Telephone Encounter - Whitney Orellana MA - 10/21/2019 11:34 AM CDT ----- Message from Clary Peters NP sent at 10/21/2019 9:58 AM CDT ----- Please let Villa know his blood counts, hemoglobin and hematocrit remained stable w/o any notable elevation is iron count is also back down to NL. His electrolytes and kidney function also remained stable. Have a follow-up here Monday as scheduled . FYI to as patient scheduled to see him Monday. Thanks documented in this encounter Plan of Treatment Not on file documented as of this encounter Visit Diagnoses Not on filedocumented in this encounter Care Teams Credit Consultant Relationship Specialty Start Date End Date Wesley Em MD PCP - General 09/30/16 12/01/21 Trey Pinedo MD [address] [place] [address] [place] [address] Consulting Physician Neurology 05/09/19 documented as of this encounter
--- OUTSIDE RECORDS SUMMARY | 2024-06-18 18:12 | XMS_ITS | Encounter Summary ---
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
--- OUTSIDE RECORDS SUMMARY | 2024-06-18 18:12 | XMS_ITS | Encounter Summary ---
Author Organization [facility] Address [address] [place] [address] Care Team Providers Care Liquid Hydrogen Plant Operator Name Role Phone Wesley Em MD Primary Care Provider Trey Pinedo MD Unavailable [phone] Encounter Details Date Type Department Care Team (Late st Contact Info) Description 05/20/2019 11:00 AM WIG STYLIST Lab [facility] [address] [place] [address] [address] [place] [address] Erythrocytosis Social History Tobacco Use Types Packs/Day [...] on file Legal Sex Male 6:00 PM WIG STYLIST Gender Identity Not on file Sexual Orientation Straight 01/23/2021 10 :16 PM CDT documented as of this encounter Plan of Treatment Not on file documented as of this encounter Visit Diagnoses Diagnosis Erythrocytosis Polycythemia, secondary documented in this encounter Care Teams Liquid Hydrogen Plant Operator Relationship Specialty Start Date End Date Wesley Em MD PCP - General 09/30/16 12/01/21 Trey Pinedo MD [address] [facility] [place] [address] Consulting Physician Neurology 05/09/19 documented as of this encounter
--- OUTSIDE RECORDS SUMMARY | 2024-06-18 18:12 | XMS_ITS | Encounter Summary ---
Author Organization 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
--- OUTSIDE RECORDS SUMMARY | 2024-06-18 18:12 | XMS_ITS | Encounter Summary ---
Author Organization 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 No / Unsure 09/16/2019 9:06 AM CDT documented as of this encounter Plan of Treatment Not on file documented as of this encounter Visit Diagnoses Diagnosis Essential hypertension Unspecified essential hypertension documented in this encounter Care Teams Media Strategist Relationship Specialty Start Date End Date Wesley Em MD PCP - General 09/30/16 12/01/21 Trey Pinedo MD [address] [place] [address] [place] [address] Consulting Physician Neurology 05/09/19 documented as of this encounter
--- OUTSIDE RECORDS SUMMARY | 2024-06-18 18:12 | XMS_ITS | Encounter Summary ---
Author Organization [facility] Medical [facility] Address [address] [place] [address] Care Team Providers Care Concrete Form Setter Name Role Phone Wesley Em MD Primary Care Provider [phone] Trey Pinedo MD Unavailable [phone] Encounter Details Date Type Department Care Team (Late st Contact Info) Description 09/18/2019 Telephone [facility] [address] [facility] [address] [place] [address] Whitney Orellana MA Social History [...] on file Legal Sex Male 6:00 PM HEELER Gender Identity Not on file Sexual Orientation Straight 01/23/2021 10 :16 PM CDT COVID-19 Exposure Response Date Recorded In the last month, have you been in contact with someone who was confirmed or suspected to have Coronavirus / COVID-19? No / Unsure 09/19/2019 9:16 AM CDT documented as of this encounter Miscellaneous Notes * Telephone Encounter - Roselyn Wan, CLT - 09/19/2019 9:49 AM CDT Lab order recd * Telephone Encounter - Tanisha Meraz - 09/19/2019 9:18 AM CDT Pt aware and lab scheduled for tomorrow at 9:30 * Telephone Encounter - Whitney Orellana MA - 09/18/2019 2:41 PM CDT lmomtrc * Telephone Encounter - Clary Peters NP - 09/18/2019 12:01 PM CDT Please tell Pt I would like to check a hemoglobin A1c before his visit with Dr. Em on 09/24/2019looking further into DM. Diagnosis: Impaired fasting glucose. Also please tell on to avoid excessive intake of sweets, closer monitoring avoid eating throughout the day, mild to moderate daily exercise as tolerated all in after to assist with healthier weight and preventing diabetes. Thank you * Telephone Encounter - Barbara Musa MA - 09/18/2019 11:48 AM CDT mkb * Telephone Encounter - Negar Flores MA - 09/18/2019 11:47 AM CDT Yes he was * Telephone Encounter - Whitney Orellana MA - 09/18/2019 11:16 AM CDT lmomtrc * Telephone Encounter - Whitney Orellana MA - 09/18/2019 11:15 AM CDT ----- Message from Clary Peters NP sent at 09/18/2019 11:02 AM CDT ----- Please call Villa and verify he was fasting for these labs? His glucose level was a bit high. documented in this encounter Plan of Treatment Not on file documented as of this encounter Visit Diagnoses Not on filedocumented in this encounter Care Teams Concrete Form Setter Relationship Specialty Start Date End Date Wesley Em MD PCP - General 09/30/16 12/01/21 Trey Pinedo MD [address] [place] [address] Consulting Physician Neurology 05/09/19 documented as of this encounter
--- OUTSIDE RECORDS SUMMARY | 2024-06-18 18:12 | XMS_ITS | Encounter Summary ---
Author Organization 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
--- OUTSIDE RECORDS SUMMARY | 2024-06-18 18:12 | XMS_ITS | Encounter Summary ---
Author Organization [facility] Address [address] [place] [address] Care Team Providers Care Hose Sprayer Name Role Phone Wesley Em MD Primary Care Provider [phone] Trey Pinedo MD Unavailable [phone] Encounter Details Date Type Department Care Team (Late st Contact Info) Description 10/21/2019 Telephone [facility] [address] [facility] [facility] [address] [place] [address] Whitney Orellana MA Social History [...] on file Legal Sex Male 6:00 PM INTAKE RN Gender Identity Not on file Sexual Orientation Straight 01/23/2021 10 :16 PM CDT COVID-19 Exposure Response Date Recorded In the last month, have you been in contact with someone who was confirmed or suspected to have Coronavirus / COVID-19? No / Unsure 09/24/2019 1:05 PM CDT documented as of this encounter Miscellaneous Notes * Telephone Encounter - Whitney Orellana MA - 10/21/2019 3:59 PM CDT Pt aware * Telephone Encounter - Whitney Orellana MA - 10/21/2019 3:59 PM CDT ----- Message from Clary Peters NP [...] on filedocumented in this encounter Care Teams Hose Sprayer Relationship Specialty Start Date End Date Wesley Em MD PCP - General 09/30/16 12/01/21 Trey Pinedo MD [address] [place] [address] [place] [address] Consulting Physician Neurology 05/09/19 documented as of this encounter
--- OUTSIDE RECORDS SUMMARY | 2024-06-18 18:12 | XMS_ITS | Encounter Summary ---
Author Organization [facility] Address [address] [place] [address] Care Team Providers Care Ornamental Bronze Worker Name Role Phone Wesley Em MD Primary Care Provider [phone] Trey Pinedo MD Unavailable [phone] Reason for Visit * Reason Comments discuss blood presure Encounter Details Date Type Department Care Team (Late st Contact Info) Description 08/13/2019 2:15 PM CONTROL PANEL OPERATOR Office Visit [facility] [address] [facility] [address] [place] [address] Wesley Em MD [address] [place] [id number] Severe uncontrolled hypertension (Primary Dx); Body mass index (bmi) [...] on file Legal Sex Male 6:00 PM CONTROL PANEL OPERATOR Gender Identity Not on file Sexual Orientation Straight 01/23/2021 10 :16 PM CDT documented as of this encounter Last Filed Vital Signs Vital Sign Reading Time Taken Comments Blood Pressure 150/80 08/13/2019 2:27 PM CONTROL PANEL OPERATOR Pulse 60 08/13/2019 2:27 PM CONTROL PANEL OPERATOR Temperature - - Respiratory Rate 24 08/13/2019 2:27 PM CONTROL PANEL OPERATOR Oxygen Saturation - - Inhaled Oxygen Concentration - - Weight 93 kg (205 lb) 08/13/2019 2:27 PM CONTROL PANEL OPERATOR Height 177.8 cm (5' 10 ) 08/13/2019 2:27 PM CONTROL PANEL OPERATOR Body Mass Index 29.41 08/13/2019 2:27 PM CONTROL PANEL OPERATOR documented in this encounter Ordered Prescriptions Prescription Sig Dispense Quantity Refills Last Filled Start Date End Date valsartan (DIOVAN) 40 mg tablet Take 1 tablet (40 mg total) by mouth daily 30 tablet 11 08/13/[address] (NexIUM) 40 mg capsule Take 1 capsule (40 mg total) by mouth daily before breakfast 90 capsule 3 08/13/2019 0 documented in this encounter Progress Notes * Wesley Em MD - 08/13/2019 2:15 PM CST Subjective/Objective Patient ID: Villa Zuniga is a 73 y.o. male. Chief Complaint discuss blood presure HPI [place] seen today last fall the patient was hospitalized with hypertensive encephalopathy his son Janett accompanies him today states he was not taking his medication compliantly that that time he wasdischarged I have not seen him since the discharge the only medications currently taking his metoprolol tartrate 25 mg once daily he is not taking it twice a day and he did bring in all his medications. He was on a clonidine patch for 3 months but his son states he was told to stop the clonidine patch after he ran out of it he was previously on clonidine tablets They been check his blood pressure at home has been high approximately 170/100 most of the time he denies any headaches denies any chest pain orthopnea no PND Review of Systems Vitals: 08/13/19 1427 BP: 150/80 BP Location: Left arm Patient Position: Sitting Pulse: 60 Resp: 24 Weight: 93 kg (205 lb) Height: 177.8 cm (5' 10 ) Physical Exam His blood pressures confirmed the right left arms neck is supple no carotid bruits lungs are clear no rales rhonchi or wheezes cardiovascular regular without murmurs gallops clicks rubs abdomen soft nontender extremities no edema good pedal pulses gait normal Assessment/Plan Diagnoses and all orders for this visit: Severe uncontrolled hypertension (Primary) Body mass index (bmi) 29.0-29.9, adult Other orders - esomeprazole DR (NexIUM) 40 mg capsule; Take 1 capsule (40 mg total) by mouth daily before breakfast - valsartan (DIOVAN) 40 mg tablet; Take 1 tablet (40 mg total) by mouth daily Will begin valsartan 40 mg daily along with his metoprolol which will change to twice daily will see back in 1 week to recheck blood pressure of his blood pressure does not seem to be responding is to give us a call for further instructions he is instructed stay away from salt if the metoprolol is working well at 25 twice daily Will continue current dosage but will check his pulse and blood pressure next week before we changes prescription We reviewed the rest of his medications with him his son at length will check laboratory workup next week Side effects, risks, interactions reviewed with patient. Indications for testing discussed. Any further problems to contact us. He was told what to look out for and verbalized understanding. The patient was given the opportunity to have all questions answered today and was in agreement with the plan of care. ROL PANEL OPERATOR documented in this encounter Plan of Treatment Not on file documented as of this encounter Visit Diagnoses Diagnosis Severe uncontrolled hypertension- Primary Unspecified essential hypertension Body mass index (bmi) 29.0-29.9, adult documented in this encounter Discontinued Medications Medication Sig Discontinue Reason Start Date End Da te esomeprazole DR (NexIUM) 40 mg capsule Take 1 capsule (40 mg total) by mouth daily before breakfast Reorder 10/30/2018 08/13/2019 documented as of this encounter Care Teams Ornamental Bronze Worker Relationship Specialty Start Date End Date Wesley Em MD PCP - General 09/30/16 12/01/21 Trey Pinedo MD [address] [address] [place] [address] Consulting Physician Neurology 05/09/19 documented as of this encounter
--- OUTSIDE RECORDS SUMMARY | 2024-06-18 18:12 | XMS_ITS | Encounter Summary ---
Author Organization [facility] Address [address] [place] [address] Care Team Providers Care Night Auditor Name Role Phone Wesley Em MD Primary Care Provider [phone] Trey Pinedo MD Unavailable [phone] Reason for Visit * Reason Comments Hypertension f/u Encounter Details Date Type Department Care Team (Late st Contact Info) Description 09/24/2019 1:15 PM CDT Office Visit [facility] [address] [facility] [address] [place] [address] Wesley Em MD [address] [place] [address] [address] [place] [address] Essential hypertension (Primary Dx); Class 1 obesity with body mass index (BMI) of 30.0 to 30.9 in adult, unspecified obesity type, unspecified whether serious comorbidity present Social History Tobacco Use Types Packs/Day [...] on file Legal Sex Male 6:00 PM TURN OPERATOR Gender Identity Not on file Sexual [...] Sign Reading Time Taken Comments Blood Pressure 168/98 09/24/2019 1:13 PM CDT Pulse 62 09/24/2019 1:13 PM CDT Temperature - - Respiratory Rate 20 09/24/2019 1:13 PM CDT Oxygen Saturation - - Inhaled Oxygen Concentration - - Weight 95.7 kg (211 lb) 09/24/2019 1:13 PM CDT Height 177.8 cm (5' 10 ) 09/24/2019 1:13 PM CDT Body Mass Index 30.28 09/24/2019 1:13 PM CDT documented in this encounter Ordered Prescriptions Prescription Sig Dispense Quantity Refills Last Filled Start Date End Date hydroCHLOROthiazid e (HYDRODIURIL) 12.5 mg tablet Take 1 tablet (12.5 mg total) by mouth daily 90 tablet 3 09/24/2019 06/17/2020 documented in this encounter Progress Notes * Wesley Em MD - 09/24/2019 1:15 PM CDT Subjective/Objective Patient ID: Villa Zuniga is a 73 y.o. male. Chief Complaint Hypertension (f/u) HPI 73-year-old seen today follow-up high blood pressure still on high he is taking the patch in everything else states he has does not recall ever taking hydrochlorothiazide does have any allergies to that that he knows of he states he has no history of gout he is having no shortness of breath no chest pain brought his blood pressure machine states his son Ian shows mild the take his blood pressurebut he does not really recall hot a get old fingers off of it Review of Systems Vitals: 09/24/19 1313 BP: 168/98 BP Location: Left arm Patient Position: Sitting Pulse: 62 Resp: 20 Weight: 95.7 kg (211 lb) Height: 177.8 cm (5' 10 ) Physical Exam His blood pressures confirmed lungs are clear cardiovascular regular abdomen soft nontender extremities no edema gait is normal Assessment/Plan Diagnoses and all orders for this visit: Essential hypertension (Primary) Will begin hydrochlorothiazide 12.5 daily see back in 1 month no continue monitor blood pressure closely understanding or goes around 130/80 continue current to clonidine patch along with his metoprolol and valsartan Class 1 obesity with body mass index (BMI) of 30.0 to 30.9 in adult, unspecified obesity type, unspecified whether serious comorbidity present Other orders - hydroCHLOROthiazide (HYDRODIURIL) 12.5 mg tablet; Take 1 tablet (12.5 mg total) by mouth daily Side effects, [...] Diagnosis Essential hypertension- Primary Unspecified essential hypertension Class 1 obesity with body mass index (BMI) of 30.0 to 30.9 in adult, unspecified obesity type, unspecified whether serious comorbidity present documented in this encounter Care Teams Night Auditor Relationship Specialty Start Date End Date Wesley Em MD PCP - General 09/30/16 12/01/21 Trey Pinedo MD [address] [facility] [address] Consulting Physician Neurology 05/09/19 documented as of this encounter
--- OUTSIDE RECORDS SUMMARY | 2024-06-18 18:12 | XMS_ITS | Encounter Summary ---
Author Organization [facility] Address [address] [place] [address] Care Team Providers Care Signal And Communications Maintainer Name Role Phone Wesley Em MD Primary Care Provider [phone] Trey Pinedo MD Unavailable [phone] Encounter Details Date Type Department Care Team (Late st Contact Info) Description 09/19/2019 Orders Only [facility] [address] [facility] [address] [place] [address] Clary Peters, CONSTRUCTION ASSISTANT [address] [address] Type 2 diabetes mellitus with hyperlipidemia (CMS/HCC) [...] on file 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 ?? (Diabetes Care 31:1270-9866, 2008). ??The eAG is not equivalent to a fasting glucose. Blood specimen (specimen) 09/20/2019 9:01 AM CDT 09/20/2019 12:30 PM CDT Clary Peters CONSTRUCTION ASSISTANT LAB BLOOD ORDERABLES Final R esult [facility] [address] Department [place] [address] documented in this encounter Visit Diagnoses Diagnosis Type 2 diabetes mellitus with hyperlipidemia (HCC)- Primary documented in this encounter Care Teams Signal And Communications Maintainer Relationship Specialty Start Date End Date Wesley Em MD PCP - General 09/30/16 12/01/21 Trey Pinedo MD [address] [place] [address] [address] [place] [address] Consulting Physician Neurology 05/09/19 documented as of this encounter
--- OUTSIDE RECORDS SUMMARY | 2024-06-18 18:12 | XMS_ITS | Encounter Summary ---
Author Organization [facility] Address [address] [facility] [address] [facility] [address] [place] [address] Care Team Providers Care Ecd Name Role Phone Wesley Em MD Primary Care Provider [phone] Trey Pinedo MD Unavailable [phone] Encounter Details Date Type Department Care Team (Late st Contact Info) Description 05/21/2019 Telephone [facility] [address] [facility] [address] [place] [address] Whitney Orellana MA Social History Tobacco Use Types Packs/Day Years Used Date Smoking Tobacco: Former Cigarettes 0.1 50 1 729 - 2009 Smokeless Tobacco: Never Alcohol Use Standard Drinks/Week Comments No 0 (1 standard drink = 0.6 oz pur e alcohol) PHQ-2 Answer Date Recorded PHQ-2 Score 0 02/22/2019 Sex and Gender Information Value Date Recorded Sex Assigned at Not on file 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 T DESIGNER * Telephone Encounter - Whitney Orellana MA - 05/21/2019 11:30 AM CST [email or web address] T DESIGNER * Telephone Encounter - Whitney Orellana MA - 05/21/2019 11:30 AM CST ----- Message from Clary Peters NP sent at 05/21/2019 7:57 AM ROBOT DESIGNER ----- Please call Villa letting him know his RBC count is gradually reducing back to his NL. Thank you T DESIGNER documented in this encounter Plan of Treatment Not on file documented as of this encounter Visit Diagnoses Not on filedocumented in this encounter Care Teams Ecd Relationship Specialty Start Date End Date Wesley Em MD PCP - General 09/30/16 12/01/21 Trey Pinedo MD [address] [place] [address] [address] [facility] [place] [address] Consulting Physician Neurology 05/09/19 documented as of this encounter
--- OUTSIDE RECORDS SUMMARY | 2024-06-18 18:12 | XMS_ITS | Encounter Summary ---
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; TIA (transient ischemic attack); Mixed hyperlipidemia; Erythrocytosis Social History Tobacco Use Types Packs/Day Years Used Date Smoking Tobacco: Former Cigarettes 0.1 50 1 149 - 2009 Smokeless Tobacco: Never Alcohol Use Standard Drinks/Week Comments No 0 (1 standard drink = 0.6 oz pur e alcohol) PHQ-2 Answer Date Recorded PHQ-2 Score 0 02/22/2019 Sex and Gender Information Value Date Recorded Sex Assigned at Not on file 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 No / Unsure 09/24/2019 1:05 PM CDT documented as of this encounter Miscellaneous Notes * Result Encounter Note - Clary Peters NP - 10/21/2019 9:58 AM CDT Please let Villa know his blood counts, hemoglobin and hematocrit remained stable w/o any notable elevation is iron count is also back down to NL. His electrolytes and kidney function also remained stable. Have a follow-up here Monday as scheduled. FYI to as patient scheduled to see him Monday. 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 60 - 89 mL/min/1.73m2 Mildly to moderately decreased ?45 - 59 mL/min/1.73m2 Moderately to severely decreased ??30 - 44 mL/min/1.73m2 Severely decreased ?15 - 29 mL/min/1.73m2 Kidney Failure ?< 15 ??mL/min/1.73m2 *Relative to young adult level If -Central African multiply value by 1.16. Estimated glomerular filtration [...] was last reviewed 2016. Blood specimen (specimen) 10/18/2019 9:04 AM CDT 10/18/2019 5:32 PM CDT Clary Peters NP LAB BLOOD ORDERABLES Final R esult [facility] [address] Department [place] [address] * Differential, auto (10/18/2019 9:04 AM CDT) Neutrophil abs 4.3 1.7 - 6.5 K/cumm [facility] Imm gran abs 0.1 0.0 - 0.1 K/cumm [facility] Lymphocyte abs 1.5 0.8 - 3.3 K/cumm [facility] Monocyte abs 0.7 0.2 - 0.8 K/cumm [facility] Eosinophil abs 0.3 0.0 - 0.5 K/cumm [facility] Basophil abs 0.1 0.0 - 0.1 K/cumm [facility] Neutrophil pct 61.6 % [facility] Comment: Interpretive Data Percent cell count reference ranges are not reported, since discordance with absolute values may lead to misinterpretation of CBC data. Current Interpretive Data was last revised on 2017. Imm gran pct 0.7 % [facility] Comment: Interpretive Data Percent cell count reference ranges are not reported, since discordance with absolute values may lead to misinterpretation of CBC data. Current Interpretive Data was last revised on 2017. Lymphocyte pct 21.3 % [facility] Comment: Interpretive Data Percent cell count reference ranges are not reported, since discordance with absolute values may lead to misinterpretation of CBC data. Current Interpretive Data was last revised on 2017. Monocyte pct 9.8 % [facility] Comment: Interpretive Data Percent cell count reference ranges are not reported, since discordance with absolute values may lead to misinterpretation of CBC data. Current Interpretive Data was last revised on 2017. Eosinophil pct 4.6 % [facility] Comment: Interpretive Data Percent cell count reference ranges are not reported, since discordance with absolute values may lead to misinterpretation of CBC data. Current Interpretive Data was last revised on 2017. Basophil pct 2.0 % [facility] Comment: Interpretive Data Percent cell count reference ranges are not reported, since discordance with absolute values may lead to misinterpretation of CBC data. Current Interpretive Data was last revised on 2017. Blood specimen (specimen) 10/18/2019 9:04 AM CDT 10/18/2019 5:27 PM CDT us Clary Peters NP LAB BLOOD ORDERABLES Final R essaleem [facility] [address] Department [place] [address] * (ABNORMAL) Iron profile w/ IBC (10/18/2019 9:04 AM CDT) Iron 128 50 - 150 mcg/dl [facility] TIBC 240(L) 250 - 400 mcg/dL [facility] Transferrin saturation 53(H) 20 - 50 % [facility] Blood specimen (specimen) 10/18/2019 9:04 AM CDT 10/18/2019 5:27 PM CDT us Clary Peters NP LAB BLOOD ORDERABLES Final R esult Performing Organization Address [facility] de Phone Number [facility] [address] [place] [address] * (ABNORMAL) CBC with auto differential (10/18/2019 9:04 AM CDT) WBC 7.0 3.8 - 9.9 K/cumm [facility] Hgb 19.3(H) 13.0 - 17.5 g/dL [facility] CH Hct 55.9(H) 38.9 - 50.3 % [facility] CH Plt 156 150 - 400 K/cumm [facility] CH MPV 10.6 9.1 - 12.3 fL [facility] RBC 5.72 4.30 - 5.80 M/cumm [facility] CH MCV 97.7(H) 81.3 - 96.4 fL [facility] CH MCH 33.7(H) 27.1 - 33.3 pg [facility] MCHC 34.5 32.3 - 35.7 g/dL [facility] RDW CV 12.9 11.1 - 14.9 % [facility] RDW SD 46.5 35.7 - 48.1 fL [facility] NRBC abs 0.00 0.00 - 0.01 K/cumm [facility] Blood specimen (specimen) 10/18/2019 9:04 AM CDT 10/18/2019 5:27 PM CDT Clary Peters THOROUGHBRED HORSE FARM MANAGER LAB BLOOD ORDERABLES Final R [facility] Performing Organization Address [facility] de Phone Number [facility] [address] [place] [address] * (ABNORMAL) Lipid panel (10/18/2019 9:04 AM CDT) Cholesterol 150 30 - 199 mg/dL [facility] Comment: Interpretive Data Ages < or = [...] Data was last revised on 2018. Triglycerides 214(H) <=149 mg/dL [facility] Comment: Interpretive Data Ages < or = [...] Data was last revised on 2018. HDL 35(L) >=40 mg/dL [facility] Comment: Interpretive Data Ages < or = [...] was last revised on 2018. LDL, calculated 72 <=129 mg/dL [facility] Comment: Interpretive Data Ages < or = [...] was last revised on 2018. Non-HDL Cholesterol 115 mg/dL [facility] Comment: Interpretive Data Ages < or = [...] last revised on 2018. Chol/HDL ratio 4 [facility] Blood specimen (specimen) 10/18/2019 9:04 AM CDT 10/18/2019 5:27 PM CDT us Clary Peters THOR[employer]BR[employer] H[employer] F[employer] MANAGER LAB BLOOD ORDERABLES Final R esult [facility] [address] [place] [address] * Comprehensive metabolic panel (10/18/2019 9:04 AM CDT) Sodium 143 135 - 145 mmol/L [facility] Potassium, pl 4.1 3.3 - 4.9 mmol/L [facility] Chloride 102 97 - 110 mmol/L [facility] CO2 27 22 - 32 mmol/L [facility] Anion gap 14 2 - 15 mmol/L [facility] BUN 23 8 - 25 mg/dL [facility] Creatinine 1.19 0.80 - 1.30 mg/dL [facility] Glucose 141 70 - 199 mg/dL [facility] Comment: Interpretive Data Fasting glucose >/= 126 [...] interpretive data was last revised 2017. 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
--- OUTSIDE RECORDS SUMMARY | 2024-06-18 18:12 | XMS_ITS | Encounter Summary ---
Author Organization 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 No / Unsure 09/20/2019 9:32 AM CDT documented as of this encounter Miscellaneous Notes * Telephone Encounter - Anastasiia Lai MA - 09/20/2019 3:23 PM CDT Pt notified * Telephone Encounter - Anastasiia Lai MA - 09/20/2019 3:23 PM CDT ----- Message from Clary Peters NP sent at 09/20/2019 2:44 PM CDT ----- Please let Pt know that he is right at the cusp of being diagnosed with DM. Please on all discussedthis with Dr. Em before his upcoming visit next week so they can discuss further. Thanks documented in this encounter Plan of Treatment Not on file documented as of this encounter Visit Diagnoses Not on filedocumented in this encounter Care Teams Shower Attendant Relationship Specialty Start Date End Date Wesley Em MD PCP - General 09/30/16 12/01/21 Trey Pinedo MD [address] [facility] [address] [place] [address] Consulting Physician Neurology 05/09/19 documented as of this encounter
--- OUTSIDE RECORDS SUMMARY | 2024-06-18 18:12 | XMS_ITS | Encounter Summary ---
Author Organization [facility] Medical Group Address [address] [place] [address] Care Team Providers Care Boat Camp Operator Name Role Phone Wesley Em MD Primary Care Provider Trey Pinedo MD Unavailable [phone] Encounter Details Date Type Department Care Team (Late st Contact Info) Description 09/16/2019 Telephone [facility] 2 [facility] [address] [place] [address] Wesley Em MD [address] [place] [address] [address] [place] [address] Social History Tobacco Use Types Packs/Day Years Used Date Smoking Tobacco: Former Cigarettes 0.1 50 1 019 - 2009 Smokeless Tobacco: Never Alcohol Use Standard Drinks/Week Comments No 0 (1 standard drink = 0.6 oz pur e alcohol) PHQ-2 Answer Date Recorded PHQ-2 Score 0 02/22/2019 Sex and Gender Information Value Date Recorded Sex Assigned at Not on file 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 No / Unsure 09/16/2019 9:06 AM CDT documented as of this encounter Miscellaneous Notes * Telephone Encounter - Tanisha Meraz - 09/16/2019 12:51 PM CDT Pt aware * Telephone Encounter - Barbara Musa MA - 09/16/2019 12:42 PM CDT lmom to cb * Telephone Encounter - Edvin Medina MD - 09/16/2019 12:23 PM CDT Continue monitoring and notify dr em next week with more readings. * Telephone Encounter - Terseita Moses MA - 09/16/2019 9:43 AM CDT Patient came in to office today for a BP check and it was 154/78 JR out BM please advise documented in this encounter Plan of Treatment Not on file documented as of this encounter Visit Diagnoses Not on filedocumented in this encounter Care Teams Boat Camp Operator Relationship Specialty Start Date End Date Wesley Em MD PCP - General 09/30/16 12/01/21 Trey Pinedo MD [address] [place] [address] [place] [address] Consulting Physician Neurology 05/09/19 documented as of this encounter
--- OUTSIDE RECORDS SUMMARY | 2024-06-18 18:12 | XMS_ITS | Encounter Summary ---
Author Organization [facility] Medical Group Address [address] [place] [address] Care Team Providers Care Lead Shipper Name Role Phone Wesley Em MD Primary Care Provider [phone] Trey Pinedo MD Unavailable [phone] Encounter Details Date Type Department Care Team (Late st Contact Info) Description 10/18/2019 Orders Only [place] [facility] 2 [facility] [address] [place] [address] Wesley Em MD [address] [place] [address] [address] [place] [address] Social History Tobacco Use Types Packs/Day Years Used Date Smoking Tobacco: Former Cigarettes 0.1 50 1 259 - 2009 Smokeless Tobacco: Never Alcohol Use Standard Drinks/Week Comments No 0 (1 standard drink = 0.6 oz pur e alcohol) PHQ-2 Answer Date Recorded PHQ-2 Score 0 02/22/2019 Sex and Gender Information Value Date Recorded Sex Assigned at Not on file 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
--- OUTSIDE RECORDS SUMMARY | 2024-06-18 18:12 | XMS_ITS | Encounter Summary ---
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
--- OUTSIDE RECORDS SUMMARY | 2024-06-18 18:12 | XMS_ITS | Encounter Summary ---
Author Organization [facility] Medical Group Address [address] [place] [address] Care Team Providers Care Mining Engineering Technologist Name Role Phone Wesley Em MD Primary Care Provider [phone] Trey Pinedo MD Unavailable [phone] Reason for Visit * Reason Comments Hospital Follow Up Encounter Details Date Type Department Care Team (Late st Contact Info) Description 05/20/2019 9:30 AM RN ENT Office Visit [facility] 2 [facility] [address] [place] [address] Clary Neil, PRODUCTION ILLUSTRATOR [address] [address] History of recent hospitalization (Primary Dx); BMI 28.0-28.9,adult; TIA (transient ischemic attack); Coronary artery disease involving [place] coronary artery of [place] heart without angina pectoris; Chronic GERD; Essential hypertension; Benign prostatic hyperplasia with lower urinary tract symptoms, symptom details unspecified; 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; Mixed hyperlipidemia; Cerebrovascular arteriosclerosis; Bilateral carotid artery disease, unspecified type (CMS/HCC); Other cerebral infarction (CMS/HCC) ; Erythrocytosis Social History Tobacco Use Types Packs/Day [...] file Legal Sex Male 6:00 PM RN ENT Gender Identity Not on file Sexual Orientation Straight 01/23/2021 10 :16 PM CDT documented as of this encounter Last Filed Vital Signs Vital Sign Reading Time Taken Comments Blood Pressure 130/70 05/20/2019 9:23 AM RN ENT Pulse 68 05/20/2019 9:23 AM RN ENT Temperature 36.6 ??C (97.9 ??F) 05/20/2019 9:23 AM CS T Respiratory Rate 16 05/20/2019 9:23 AM RN ENT Oxygen Saturation - - Inhaled Oxygen Concentration - - Weight 90.7 kg (200 lb) 05/20/2019 9:23 AM RN ENT Height 177.8 cm (5' 10 ) 05/20/2019 9:23 AM RN ENT Body Mass Index 28.7 05/20/2019 9:23 AM RN ENT documented in this encounter Ordered Prescriptions Prescription Sig Dispense Quantity Refills Last Filled Start Date End Date atorvastatin (LIPITOR) 80 mg tablet Take 1 tablet (80 mg total) by mouth daily REPLACES PRIOR PRESCRIBED ATORVASTATIN 40MG 30 tablet 5 05/20/2019 9 documented in this encounter Progress Notes * Clary Neil, PRODUCTION ILLUSTRATOR - 05/20/2019 9:30 AM CST Images from the original note were not included. [facility] Patient ID: Villa Zuniga is a 73 y.o. male Chief Complaint. Chief Complaint Patient presents with ??? Hospital Follow Up HPI: Villa Zuniga presents today for a transition of care visit after having been hospitalized for a TIA at [facility] on 05/07/2019 to 05/09/2019. Prior to ED arrival Pt was experiencing certain speech was found to have uncontrolled HTN upon ED arrival. He was promptly evaluated for presence of stroke, which CT and MRI were negative for acute CVA, sx gradually improved after treating HTN in ED and he was admitted for evaluation. 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 Prior prescribed plavix, aspirin, lipitor and metoprolol. He was placed on Clonidine patchwhich has been controlling his pain well since discharge. Not checking BP at home. No CP, BUENO, orthopnea or BOGGS. He is under care of mottler machine feeder, , seeing them every 3 months. No further neurological symptoms. Concern of two small cuts along arm with blood thinners. Allergies Allergen Reactions ??? Apple ??? Ciprofloxacin Rash Reaction: RASH, Reaction: Rash, Current Outpatient Medications Medication Sig Dispense Refill ??? aspirin 81 mg tablet Take one by mouth one time per day 0 0 ??? atorvastatin (LIPITOR) 40 mg tablet TAKE ONE TABLET BY MOUTH EVERY DAY 90 tablet 3 ??? bisacodyl 5 mg tablet Take by mouth ??? cloNIDine (CATAPRES-TTS) 0.1 mg/[address] 0.1 mg on the skin once a week for 4 doses 3 patch 3 ??? clopidogrel (PLAVIX) 75 mg tablet TAKE ONE TABLET BY MOUTH EVERY DAY 90 tablet 2 ??? esomeprazole DR (NexIUM) 40 mg capsule Take 1 capsule (40 mg total) by mouth daily before breakfast 30 capsule 11 ??? finasteride (PROSCAR) 5 mg tablet TAKE ONE TABLET BY MOUTH EVERY DAY 90 tablet 3 ??? metoprolol (LOPRESSOR) 25 mg tablet Take 25 mg by mouth daily ??? mupirocin (BACTROBAN) 2 % cream Apply topically 3 (three) times a day ??? potassium citrate ER (UROCIT-K) 10 mEq (1,080 mg) CR tablet take 1 tablet by oral route 2 timesevery day 0 0 ??? tamsulosin (FLOMAX) 0.4 mg extended release capsule TAKE ONE CAPSULE BY MOUTH EVERY DAY 90 capsule 3 No current facility-administered medications for this visit. Review of Systems: Review of Systems Constitutional: Negative for activity change, diaphoresis, fatigue, fever and unexpected weight change. Respiratory: Negative. Negative for shortness of breath. Cardiovascular: Negative for chest pain. Gastrointestinal: Negative. Genitourinary: Negative. Neurological: Negative for dizziness, tremors, facial asymmetry, speech difficulty, weakness, light-headedness, numbness and headaches. Hematological: Bruises/bleeds easily. Psychiatric/Behavioral: Negative. Vitals: 05/20/19 0923 BP: 130/70 Pulse: 68 Resp: 16 Temp: 36.6 ??C (97.9 ??F) TempSrc: Oral Weight: 90.7 kg (200 lb) Height: 177.8 cm (5' 10 ) Physical Exam: Physical Exam Constitutional: Appearance: He is well-developed. HENT: Head: Normocephalic and atraumatic. Eyes: Pupils: Pupils are equal, round, and reactive to light. Neck: Vascular: No carotid bruit (Supple carotids at +1 BL w/o evidence of bruit). Cardiovascular: Rate and Rhythm: Normal rate and regular rhythm. Heart sounds: Normal heart sounds. No murmur. No gallop. Pulmonary: Effort: Pulmonary effort is normal. No respiratory distress. Breath sounds: Normal breath sounds. No wheezing. Abdominal: General: Bowel sounds are normal. Palpations: Abdomen is soft. Musculoskeletal: General: Swellinmm distal LE. Right lower leg: Edema (1mm edema distal LE) present. Left lower leg: Edema (1mm distal LE) present. Neurological: Mental Status: He is alert and oriented to person, place, and time. Comments: CN 2-12 grossly intact Psychiatric: Behavior: Behavior normal. Diagnostics: Lab Results Component Value Date WBC 7.8 05/07/2019 HGB 19.8 (H) 05/07/2019 HCT 54.6 (H) 05/07/2019 LABPLAT 175 05/07/2019 CHOL 166 05/08/2019 TRIG 170 (H) 05/08/2019 HDL 38 (L) 05/08/2019 ALT 20 05/07/2019 AST 24 05/07/2019 SODIUM 138 05/07/2019 POTASSIUM 4.1 05/07/2019 CHLORIDE 99 05/07/2019 CREATININE 1.05 05/07/2019 BUNSER 19 05/07/2019 CO2 27 05/07/2019 TSH 1.75 12/16/2014 PSA 4.22 10/16/2018 INR 1.13 05/07/2019 HGBA1C 5.8 (H) 05/08/2019 MICROALBUR 327.0 (H) 10/06/2017 Brain MRI w/o contrast completed 05/08/2019 indicated: IMPRESSION: ?? 1. NO ACUTE INTRACRANIAL HEMORRHAGE OR INFARCT. 2. MODERATE SMALL VESSEL MICROVASCULAR ISCHEMIC DISEASE. 3. 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 BL venous duplex completed on 05/08/2019 indicated: IMPRESSION: 1. MILD TO MODERATE STENOSES BILATERALLY DESCRIBED ABOVE. NO DEFINITE SEVERE STENOSIS IDENTIFIED. 2. ANTEGRADE VERTEBRAL FLOW BILATERALLY. Head CT w/o contrast on 05/08/2019 indicated: IMPRESSION: 1. No acute findings. 2. Mild generalized atrophy. 3. Mild to moderate white matter changes suggestive of microangiopathy. 4. Cerebrovascular arteriosclerosis. 5. 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 6. 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 7. Right insular cortex hypodensity also appears old, but more prominent than on 10/15/2016. ?? 2D echocardiogram completed 05/08/2019 indicated: Conclusions: Normal left ventricular systolic function with no focal wall motion abnormalities. Normal left ventricular size. Normal left ventricular wall thickness. Impaired diastolic relaxation Grade I. Ejection fraction is visually estimated at 65-70 %. Right Ventricular Systolic Pressure could not be estimated due to inadequate visualization of TR jet. Technically difficult study with limited views. I personally reviewed all diagnostics, labs, and prior documentations today in clinic. Additionally, medications were reviewed and reconciled. Assessment/Plan Diagnoses and all orders for this visit: History of recent hospitalization (Primary) Assessment & Plan: Recent hospitalization records reviewed with labs and diagnostics all detailed above BMI 28.0-28.9,adult TIA (transient ischemic attack) Assessment & Plan: Chads Vasc score 3/9 with recent TIA, imaging all negative for acute stroke. Hx of CVD, CVA, CAD does recommending Pt to Cnt. Dual anti-platelet therapy for at least 3 months or can consider steppingdown from Plavix only if recommended by mottler machine feeder, increasing atorvastatin 80 mg daily. Orders: - Lipid panel; Future Coronary artery disease involving [place] coronary artery of [place] heart without angina pectoris Assessment & Plan: Hx of CAD with stents, HLD, arteriosclerosis noted recent CT imaging. Increasing Lipitor to 80 mg aday for improved HLD control, future CBD protection. Cnt. Dual anti-platelet therapy, metoprolol, clonidine patch, heart healthy diet, F/U Cardiology as scheduled. Orders: - Lipid panel; Future - Comprehensive metabolic panel; Future - Vl US Carotids; Future Chronic GERD Assessment & Plan: Stable. Cnt. Current Nexium dosing. Essential hypertension Assessment & Plan: Much improved with clonidine patch. Pt was encouraged to Cnt. To wear this patch daily, Cnt. Prior prescribed metoprolol heart healthy diet. I did encourage him to purchase some machine at home and monitor blood pressure readings. RTC in 3 months for repeat blood pressure check or sooner as needed. Benign prostatic hyperplasia with lower urinary tract symptoms, symptom details unspecified Assessment & Plan: Asymptomatic and stable medication. Cnt. Proscar, Flomax. 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 Next EGD scheduled for 2020. Cnt. Nexium therapy prior advised. Mixed hyperlipidemia Assessment & Plan: Increase Lipitor to 80 mg a day for mention. S/Es to report office discussed given increase. RepeatFLP, CMP/liver function in 3 months. Orders: - Lipid panel; Future Cerebrovascular arteriosclerosis Assessment & Plan: CT imaging detailed above demonstrating cerebrovascular arteriosclerosis in 2017 and again during recent hospitalization. Given TIA, Hx of CAD, recommending increase Lipitor to 80 mg daily, Cnt. Aspirin and Plavix for dual anti-platelet therapy, repeat venous duplex in 1 year. Bilateral carotid artery disease, unspecified type (CMS/HCC) Comments: Detailed above <40%. Increase lipitor, cont heart healthy diet and antihypertensives. Repeat VL duplex in [address] w/ progression Orders: - Vl US Carotids; Future Other cerebral infarction (CMS/HCC) - Vl US Carotids; Future Erythrocytosis Comments: Acute on chronic with prior workup negative for polycythemia vera,. Prior smoker for >40 yrs. Asymptomatic. Recent CBC indicated H&H of 19.9/42. Repeat CBC, iron panel today for eval. Cont ASA, plavix Orders: - CBC with auto differential; Future - Iron profile w/ IBC; Future Other orders - atorvastatin (LIPITOR) 80 mg tablet; Take 1 tablet (80 mg total) by mouth daily REPLACES PRIOR PRESCRIBED ATORVASTATIN 40MG Recommended patient to continue to increase heart healthy diet along with mild- moderate daily exercise as tolerated. Future Appointments Date Time Provider Department Center 08/07/2019 8:45 AM [facility], [facility] 08/21/2019 2:30 PM Wesley Em MD [facility] All past family, medical, and social history were reviewed and updated in the EMR as well as current medications. Patient offered no further complaints and was in agreement with plan of care. Patientwas advised regarding dosage, use, and side effects of any new medications. Patient was advised to f/u in office with any worsening or little to no improvement of symptoms. Patient was advised to follow-up regarding the results of testing ordered in office today and that they should hear from us regarding the results in 2-3 business days, discussed benefits of MyChart in regard to patient experience. The patient was given the opportunity to have all questions answered today and was in agreementwith the plan of care. This note is dictated and transcribed using [facility] Direct Software. Motor Racer variancesmay occur. Despite proofreading, typographical errors may occur. Cosigned by Wesley Em MD at 05/20/2019 10:45 AM RN ENT ENT ENT documented in this encounter Miscellaneous Notes * Assessment & Plan Note - Clary Neil NP - 05/20/2019 10:21 AM RN ENT Associated Problem(s): Chronic GERD Stable. Cnt. Current Nexium dosing. ENT * Assessment & Plan Note - Clary Neil NP - 05/20/2019 10:21 AM RN ENT Associated Problem(s): Essential hypertension Much improved with clonidine patch. Pt was encouraged to Cnt. To wear this patch daily, Cnt. Prior prescribed metoprolol heart healthy diet. I did encourage him to purchase some machine at home and monitor blood pressure readings. RTC in 3 months for repeat blood pressure check or sooner as needed. ENT * Assessment & Plan Note - Clary Neil NP - 05/20/2019 10:20 AM RN ENT Associated Problem(s): TIA (transient ischemic attack) Chads Vasc score 3/9 with recent TIA, imaging all negative for acute stroke. Hx of CVD, CVA, CAD does recommending Pt to Cnt. Dual anti-platelet therapy for at least 3 months or can consider steppingdown from Plavix only if recommended by mottler machine feeder, increasing atorvastatin 80 mg daily. ENT * Assessment & Plan Note - Clary Neil NP - 05/20/2019 10:19 AM RN ENT Associated Problem(s): Hyperlipidemia Increase Lipitor to 80 mg a day for mention. S/Es to report office discussed given increase. RepeatFLP, CMP/liver function in 3 months. ENT * Assessment & Plan Note - Clary Neil NP - 05/20/2019 10:17 AM RN ENT Associated Problem(s): Coronary artery disease involving [place] coronary artery of [place] heart without angina pectoris Hx of CAD with stents, HLD, arteriosclerosis noted recent CT imaging. Increasing Lipitor to 80 mg aday for improved HLD control, future CBD protection. Cnt. Dual anti-platelet therapy, metoprolol, clonidine patch, heart healthy diet, F/U Cardiology as scheduled. ENT * Assessment & Plan Note - Clary Neil NP - 05/20/2019 10:16 AM RN ENT Associated Problem(s): Cerebrovascular arteriosclerosis CT imaging detailed above demonstrating cerebrovascular arteriosclerosis in 2017 and again during recent hospitalization. Given TIA, Hx of CAD, recommending increase Lipitor to 80 mg daily, Cnt. Aspirin and Plavix for dual anti-platelet therapy, repeat venous duplex in 1 year. ENT * Assessment & Plan Note - Clary Neil NP - 05/20/2019 10:16 AM RN ENT Associated Problem(s): Benign prostatic hyperplasia with lower urinary tract symptoms Asymptomatic and stable medication. Cnt. Proscar, Flomax. 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 Next EGD scheduled for 2020. Cnt. Nexium therapy prior advised. ENT * Assessment & Plan Note - Clary Neil NP - 05/20/2019 10:09 AM RN ENT Associated Problem(s): History of recent hospitalization (Resolved 05/20/2019) Recent hospitalization records reviewed with labs and diagnostics all detailed above ENT * Addendum Note - Clary Neil NP - 05/20/2019 9:30 AM CSTAddended by: CLARY NEIL on: 05/20/2019 11:06 AM Modules accepted: Level of Service ENT documented in this encounter Plan of Treatment Not on file documented as of this encounter Results * Comprehensive metabolic panel (10/18/2019 9:04 AM [...] AM CDT 10/18/2019 5:27 PM CDT Clary Neil PRODUCTION ILLUSTRATOR LAB BLOOD ORDERABLES Final R esult [facility] [address] Department of Laboratories [place] [id number] * (ABNORMAL) Lipid panel (10/18/2019 9:04 AM CDT) Cholesterol 150 30 - 199 mg/dL [facility] Comment: Interpretive Data Ages < or = [...] on 2018. Triglycerides 214(H) <=149 mg/dL [facility] Comment: Interpretive Data Ages < or = [...] on 2018. HDL 35(L) >=40 mg/dL [facility] Comment: Interpretive Data Ages < or = [...] 2018. LDL, calculated 72 <=129 mg/dL [facility] Comment: Interpretive Data Ages < or = [...] revised on 2018. Non-HDL Cholesterol 115 mg/dL [facility] Comment: Interpretive Data Ages < or = [...] last revised on 2018. Chol/HDL ratio 4 [facility] Blood specimen (specimen) 10/18/2019 9:04 AM CDT 10/18/2019 5:27 PM CDT Clary Neil PRODUCTION ILLUSTRATOR LAB BLOOD ORDERABLES Final R esult [facility] [address] Department [place] [address] * (ABNORMAL) Iron profile w/ IBC (05/20/2019 10:33 AM RN ENT) Iron 159(H) 50 - 150 mcg/dl [facility] TIBC 246(L) 250 - 400 mcg/dL [facility] Transferrin saturation 65(H) 20 - 50 % [facility] Blood specimen (specimen) 05/20/2019 10:33 AM RN ENT 05/20/2019 4:52 PM RN ENT Clary Neil PRODUCTION ILLUSTRATOR LAB BLOOD ORDERABLES Final R esult [facility] [address] [place] [address] * (ABNORMAL) CBC with auto differential (05/20/2019 10:33 AM RN ENT) WBC 7.3 3.8 - 9.9 K/cumm [facility] Hgb 18.9(H) 13.0 - 17.5 g/dL [facility] Hct 55.6(H) 38.9 - 50.3 % [facility] Plt 158 150 - 400 K/cumm [facility] CH MPV 10.8 9.1 - 12.3 fL [facility] RBC 5.71 4.30 - 5.80 M/cumm [facility] MCV 97.4(H) 81.3 - 96.4 fL [facility] MCH 33.1 27.1 - 33.3 pg [facility] MCHC 34.0 32.3 - 35.7 g/dL [facility] RDW CV 12.7 11.1 - 14.9 % [facility] RDW SD 45.2 35.7 - 48.1 fL [facility] NRBC abs 0.00 0.00 - 0.01 K/cumm [facility] Blood specimen (specimen) 05/20/2019 10:33 AM RN ENT 05/20/2019 4:52 PM RN ENT Clary Neil PRODUCTION ILLUSTRATOR LAB BLOOD ORDERABLES Final R esult [facility] [address] [place] [address] documented in this encounter Visit Diagnoses Diagnosis History of recent hospitalization- Primary BMI 28.0-28.9,adult TIA (transient ischemic attack) Unspecified transient cerebral ischemia Coronary artery disease involving [place] coronary artery of [place] heart without angina pectoris Chronic GERD Essential hypertension Unspecified essential hypertension Benign prostatic hyperplasia with lower urinary tract symptoms, symptom details unspecified 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 Mixed hyperlipidemia Cerebrovascular arteriosclerosis Cerebral atherosclerosis Bilateral carotid artery disease, unspecified type (HCC) Other cerebral infarction (CMS/HCC) Erythrocytosis Polycythemia, secondary documented in this encounter Discontinued Medications Medication Sig Discontinue Reason Start Date End Da te atorvastatin (LIPITOR) 40 mg tablet TAKE ONE TABLET BY MOUTH EVERY DAY 09/21/2018 05/20/2019 documented as of this encounter Care Teams Mining Engineering Technologist Relationship Specialty Start Date End Date Wesley Em MD PCP - General 09/30/16 12/01/21 Trey Pinedo MD [address] [place] [address] Consulting Physician Neurology 05/09/19 documented as of this encounter
--- OUTSIDE RECORDS SUMMARY | 2024-06-18 18:12 | XMS_ITS | Encounter Summary ---
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 No / Unsure 09/19/2019 9:16 AM CDT documented as of this encounter Miscellaneous Notes * Telephone Encounter - Whitney Orellana MA - 09/19/2019 11:05 AM CDT Pt aware * Telephone Encounter - Whitney Orellana MA - 09/19/2019 11:05 AM CDT ----- Message from Clary Peters NP sent at 09/18/2019 11:02 AM CDT ----- Please call Villa and verify he was fasting for these labs? His glucose level was a bit high. documented in this encounter Plan of Treatment Not on file documented as of this encounter Visit Diagnoses Not on filedocumented in this encounter Care Teams Retort Load Expediter Relationship Specialty Start Date End Date Wesley Em MD PCP - General 09/30/16 12/01/21 Trey Pinedo MD [address] [place] [address] [address] [place] [address] Consulting Physician Neurology 05/09/19 documented as of this encounter
--- OUTSIDE RECORDS SUMMARY | 2024-06-18 18:12 | XMS_ITS | Encounter Summary ---
Author Organization [facility] Address [address] [place] [address] Care Team Providers Care Contracts Administrator Name Role Phone Wesley Em MD Primary Care Provider Trey Pinedo MD Unavailable [phone] Encounter Details Date Type Department Care Team (Late st Contact Info) Description 09/16/2019 7:50 PM CDT Lab [address] [address] Resistant hypertension Social History Tobacco Use Types Packs/Day Years Used Date Smoking Tobacco: Former Cigarettes 0.1 50 1 739 - 2009 Smokeless Tobacco: Never Alcohol Use Standard Drinks/Week Comments No 0 (1 standard drink = 0.6 oz pur e alcohol) PHQ-2 Answer Date Recorded PHQ-2 Score 0 02/22/2019 Sex and Gender Information Value Date Recorded Sex Assigned at Not on file 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 No / Unsure 09/16/2019 9:06 AM CDT documented as of this encounter Miscellaneous Notes * Result Encounter Note - Clary Peters, HORSE RACING ANALYST - 09/18/2019 11:02 AM CDT Please call Villa and verify he was fasting for these labs? His glucose level was a bit high. documented in this encounter Plan of Treatment Not on file documented as of this encounter Procedures Procedure Name Priority Date/Time Associated Diagnosis Comments EGFR Routine 09/16/2019 9:14 AM CDT Resistant hypertension COMPREHENSIVE METABOLIC PANEL Routine 09/16/2019 9:14 AM CDT Resistant hypertension documented in this encounter Results * eGFR (09/16/2019 9:14 AM CDT) eGFR 63 mL/min/1.7 3 m2 [facility] Comment: Interpretive Data Reference Interval Normal ?>/= 90 mL/min/1.73m2 Mildly decreased* ? 60 - 89 mL/min/1.73m2 Mildly to moderately decreased ?45 - 59 mL/min/1.73m2 Moderately to severely decreased ??30 - 44 mL/min/1.73m2 Severely decreased ?15 - 29 mL/min/1.73m2 Kidney Failure ?< 15 ??mL/min/1.73m2 *Relative to young adult level If -Niue[place] multiply value by 1.16. Estimated glomerular filtration [...] was last reviewed 2016. Blood specimen (specimen) 09/16/2019 9:14 AM CDT 09/16/2019 8:03 PM CDT Clary Peters HORSE RACING ANALYST LAB BLOOD ORDERABLES Final R esult Performing Organization Address [facility] [address] [facility]/ZIP Co al Phone Number CERNER [id number] [place] [address] * Comprehensive metabolic panel (09/16/2019 9:14 AM CDT) Sodium 144 135 - 145 mmol/L [facility] CH Potassium, pl 3.7 3.3 - 4.9 mmol/L [facility] Chloride 104 97 - 110 mmol/L [facility] CH CO2 25 22 - 32 mmol/L [facility] CH Anion gap 15 2 - 15 mmol/L [facility] BUN 24 8 - 25 mg/dL [facility] Creatinine 1.16 0.80 - 1.30 mg/dL [facility] Glucose 145 70 - 199 mg/dL [facility] Comment: [...] interpretive data was last revised 2017. Calcium 8.8 8.5 - 10.3 mg/dL [facility] Bilirubin, total 0.7 0.1 - 1.2 mg/dL [facility] CH Protein, pl 6.5 6.5 - 8.5 g/dL [facility] Albumin 3.8 3.5 - 5.0 g/dL [facility] Alk phos 106 40 - 130 Units/L [facility] ALT 21 7 - 55 Units/L [facility] AST 15 10 - 50 Units/L [facility] CH Blood specimen (specimen) 09/16/2019 9:14 AM CDT 09/16/2019 7:51 PM CDT Clary Peters HORSE RACING ANALYST LAB BLOOD ORDERABLES Final R esult [facility] [id number] Department [place] [address] documented in this encounter Visit Diagnoses Diagnosis Resistant hypertension documented in this encounter Care Teams Contracts Administrator Relationship Specialty Start Date End Date Wesley Em MD PCP - General 09/30/16 12/01/21 Trey Pinedo MD [address] [place] [address] [address] [facility] [place] [place] [address] Consulting Physician Neurology 05/09/19 documented as of this encounter
--- OUTSIDE RECORDS SUMMARY | 2024-06-18 18:12 | XMS_ITS | Encounter Summary ---
Author Organization [facility] Medical Group Address [address] [place] [address] Care Team Providers Care Farm Products Shipper Name Role Phone Wesley Em MD Primary Care Provider [phone] Trey Pinedo MD Unavailable [phone] Encounter Details Date Type Department Care Team (Late st Contact Info) Description 10/07/2019 Telephone [facility] [address] [facility] [address] [place] [address] Wesley Em MD [address] [place] [address] [address] [place] [address] Social History Tobacco Use Types Packs/Day Years [...] on file 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 No / Unsure 09/24/2019 1:05 PM CDT documented as of this encounter Miscellaneous Notes * Telephone Encounter - Barbara Musa MA - 10/07/2019 3:41 PM CDT [facility] aware * Telephone Encounter - Edvin Medina MD - 10/07/2019 3:27 PM CDT ok * Telephone Encounter - Mandi Lacy MA - 10/07/2019 2:09 PM CDT Jr out of the office to bm * Telephone Encounter - Grace Redmond - 10/07/2019 1:58 PM CDT Pharm calling stating there is possible interaction between nexium and clopidogrel. Verifying okay to fill nexium. Please advise. documented in this encounter Plan of Treatment Not on file documented as of this encounter Visit Diagnoses Not on filedocumented in this encounter Care Teams Farm Products Shipper Relationship Specialty Start Date End Date Wesley Em MD PCP - General 09/30/16 12/01/21 Trey Pinedo MD [address] [facility] [address] [facility] [place] [address] Consulting Physician Neurology 05/09/19 documented as of this encounter
--- OUTSIDE RECORDS SUMMARY | 2024-06-18 18:12 | XMS_ITS | Encounter Summary ---
Author Organization [facility] Medical Group Address [address] [place] [address] Care Team Providers Care X Ray Physician Name Role Phone Wesley Em MD Primary Care Provider [phone] Trey Pinedo MD Unavailable [phone] Reason for Visit * Reason Comments Hypertension Encounter Details Date Type Department Care Team (Late st Contact Info) Description 08/16/2019 10:15 AM GOODYEAR STITCHER Office Visit [facility] [address] [place] [address] [address] [place] [address] Clary Peters, SEWER PIPE LAYER HELPER [address] Wright [address] [address] Resistant hypertension (Primary Dx); BMI 30.0-30.9,adult; Cerebrovascular arteriosclerosis Social History Tobacco Use Types Packs/Day Years [...] on file Legal Sex Male 6:00 PM GOODYEAR STITCHER Gender Identity Not on file Sexual Orientation Straight 01/23/2021 10 :16 PM CDT documented as of this encounter Last Filed Vital Signs Vital Sign Reading Time Taken Comments Blood Pressure 150/92 08/16/2019 10:11 AM GOODYEAR STITCHER PT'S BP CUFF 186/123 Pulse 74 08/16/2019 10:11 AM GOODYEAR STITCHER Temperature 36.6 ??C (97.9 ??F) 08/16/2019 1 0:11 AM GOODYEAR STITCHER Respiratory Rate 20 08/16/2019 10:1 1 AM GOODYEAR STITCHER Oxygen Saturation 97% 08/16/2019 10: 11 AM GOODYEAR STITCHER Inhaled Oxygen Concentration - - Weight 95.3 kg (210 lb) 08/16/2019 10:1 1 AM GOODYEAR STITCHER Height 177.8 cm (5' 10 ) 08/16/2019 10: 11 AM GOODYEAR STITCHER Body Mass Index 30.13 08/16/2019 10:11 AM GOODYEAR STITCHER documented in this encounter Patient Instructions * Patient Instructions* Clary Peters NP - 08/16/2019 10:15 AM GOODYEAR STITCHER Images from the original note were not included. I truly hope you received EXCELLENT care today! [facility] and I are thankful you have trusted us with your care. You records will be available in the electronic system for any specialist who utilize the same system. Please do not hesistate to call if you have absolutely any questions or concerns. You may receive a phone call or text asking about your care today. We would love to hear your input and again hope your visit was as EXCELLENT as possible even though you may not have been feeling well! Thank you in advance, Clary YEAR STITCHER documented in this encounter Ordered Prescriptions Prescription Sig Dispense Quantity Refills Last Filled Start Date End Date cloNIDine (CATAPRES-TTS) 0.1 mg/[address] 0.1 mg on the skin once a week for 4 doses 4 patch 1 08/16/2019 08/20/2019 documented in this encounter Progress Notes * Clary Peters NP - 08/16/2019 10:15 AM CST Images from the original note were not included. [facility] Patient ID: Villa Zuniga is a 73 y.o. male Chief Complaint. Chief Complaint Patient presents with ??? Hypertension HPI: Villa Zuniga presents today accompanied with D/T elevated blood pressure readings at home over the last week around 180-200 (at highest)/70-90s. Seen in office prior on 08/13/2019, prescribed losartan which he endorses taking along with continuing metoprolol as prior prescribed. Bloodpressure is still elevated home even after distal medication in 150-160s/80s. Other PMH includes CAD, HTN, cerebrovascular arteriosclerosis, BPH, Mayo's esophagitis, TIA. He is under care of belt changer, . Was taking clonidine prior but ???ran out?? and discontinue medication about 2 months. Declines any chest pain or pressure, exertional sx, orthopnea, facial flushing, changes in vision. Son, Deonte, now manages his medications, care over the recent months since TIA in May 2019. He is available on the phone with us today as well. Allergies Allergen Reactions ??? Apple ??? Ciprofloxacin Rash Reaction: RASH, Reaction: Rash, Current Outpatient Medications Medication Sig Dispense Refill ??? aspirin 81 mg tablet Take one by mouth one time per day 0 0 ??? atorvastatin (LIPITOR) 80 mg tablet Take 1 tablet (80 mg total) by mouth daily REPLACES PRIOR PRESCRIBED ATORVASTATIN 40MG 90 tablet 3 ??? bisacodyl 5 mg tablet Take by mouth ??? clopidogrel (PLAVIX) 75 mg tablet Take 1 tablet (75 mg total) by mouth daily 90 tablet 3 ??? esomeprazole DR (NexIUM) 40 mg capsule Take 1 capsule (40 mg total) by mouth daily before breakfast 90 capsule 3 ??? finasteride (PROSCAR) 5 mg tablet Take 1 tablet (5 mg total) by mouth daily 90 tablet 3 ??? metoprolol (LOPRESSOR) 25 mg tablet Take 1 tablet (25 mg total) by mouth daily 90 tablet 3 ??? mupirocin (BACTROBAN) 2 % cream Apply topically 3 (three) times a day ??? potassium citrate ER (UROCIT-K) 10 mEq (1,080 mg) CR tablet take 1 tablet by oral route 2 timesevery day 0 0 ??? tamsulosin (FLOMAX) 0.4 mg extended release capsule Take 1 capsule (0.4 mg total) by mouth daily 90 capsule 3 ??? valsartan (DIOVAN) 40 mg tablet Take 1 tablet (40 mg total) by mouth daily 30 tablet 11 ??? cloNIDine (CATAPRES-TTS) 0.1 mg/[address] 0.1 mg on the skin once a week for 4 doses (Patientnot taking: Reported on 08/13/2019) 3 patch 3 No current facility-administered medications for this visit. Review of Systems: Review of Systems Constitutional: Negative for activity change, diaphoresis, fatigue, fever and unexpected weight change. Respiratory: Negative. Cardiovascular: Negative. Gastrointestinal: Negative. Genitourinary: Negative. Neurological: Negative for dizziness, light-headedness and headaches. Vitals: 08/16/19 1011 BP: 150/92 Pulse: 74 Resp: 20 Temp: 36.6 ??C (97.9 ??F) TempSrc: Oral SpO2: 97% Weight: 95.3 kg (210 lb) Height: 177.8 cm (5' 10 ) Physical Exam: Physical Exam Constitutional: Appearance: He is well-developed. He is obese. HENT: Head: Normocephalic and atraumatic. Eyes: Pupils: Pupils are equal, round, and reactive to light. Cardiovascular: Rate and Rhythm: Normal rate and regular rhythm. Heart sounds: Normal heart sounds. No murmur. No gallop. Pulmonary: Effort: Pulmonary effort is normal. No respiratory distress. Breath sounds: Normal breath sounds. No wheezing. Abdominal: General: There is distension (soft, nontender). Palpations: Abdomen is soft. Musculoskeletal: Right lower leg: Edema (trace) present. Left lower leg: Edema (trace) present. Neurological: Mental Status: He is alert and oriented to person, place, and time. Psychiatric: Behavior: Behavior normal. Diagnostics: Lab Results Component Value Date WBC 7.3 05/20/2019 HGB 18.9 (H) 05/20/2019 HCT 55.6 (H) 05/20/2019 LABPLAT 158 05/20/2019 CHOL 166 05/08/2019 TRIG 170 (H) 05/08/2019 HDL 38 (L) 05/08/2019 ALT 20 05/07/2019 AST 24 05/07/2019 SODIUM 138 05/07/2019 POTASSIUM 4.1 05/07/2019 CHLORIDE 99 05/07/2019 CREATININE 1.05 05/07/2019 BUNSER 19 05/07/2019 CO2 27 05/07/2019 TSH 1.75 12/16/2014 PSA 4.22 10/16/2018 INR 1.13 05/07/2019 HGBA1C 5.8 (H) 05/08/2019 MICROALBUR 327.0 (H) 10/06/2017 I personally reviewed all diagnostics, labs, and prior documentations today in clinic. Additionally, medications were reviewed and reconciled. Assessment/Plan Diagnoses and all orders for this visit: Resistant hypertension (Primary) Assessment & Plan: Improving, but uncontrolled. Cont valsartan, metoprolol and adding clonidine patch back into regimen. New script written for BP machine D/T home machine inaccuracies. Sx to monitor for, report given to both him and . Repeat BMP in 1 month D/T recently starting valsartan. RTC next week as scheduled. Orders: - Comprehensive metabolic panel; Future BMI 30.0-30.9,adult Cerebrovascular arteriosclerosis Assessment & Plan: Uncontrolled HTN certainly a concern given hx of TIA, CAD. Education provided to him and of importance in HTN regimen. Other orders - cloNIDine (CATAPRES-TTS) 0.1 mg/24 hr; Place 0.1 mg on the skin once a week for 4 doses Recommended patient to continue to increase heart healthy diet along with mild- moderate daily exercise as tolerated. Future Appointments Date Time Provider Department Center 08/20/2019 1:15 PM Wesley Em MD [facility] 10/18/2019 9:15 AM [facility] 11/01/2019 11:30 AM Wesley Em MD [facility] 05/20/2020 1:00 PM [facility] All past family, medical, and social history [...] This note is dictated and transcribed using [employer] Fluency Direct Software. Emissions Testing And Repair Technician variancesmay occur. Despite proofreading, typographical errors may occur. Cosigned by Wesley Em MD at 08/19/2019 6:54 AM GOODYEAR STITCHER YEAR STITCHER YEAR STITCHER documented in this encounter Miscellaneous Notes * Assessment & Plan Note - Clary Peters NP - 08/16/2019 10:50 AM GOODYEAR STITCHER Associated Problem(s): Cerebrovascular arteriosclerosis Uncontrolled HTN certainly a concern given hx of TIA, CAD. Education provided to him and of importance in HTN regimen. YEAR STITCHER * Assessment & Plan Note - Clary Peters NP - 08/16/2019 10:48 AM GOODYEAR STITCHER Associated Problem(s): Resistant hypertension (Resolved 10/25/2019) Improving, but uncontrolled. Cont valsartan, metoprolol and adding clonidine patch back into regimen. New script written for BP machine D/T home machine inaccuracies. Sx to monitor for, report given to both him and . Repeat BMP in 1 month D/T recently starting valsartan. RTC next week as scheduled. YEAR STITCHER documented in this encounter Plan of Treatment Not on file documented as of this encounter Results * Comprehensive metabolic panel (09/16/2019 9:14 AM [...] CDT 09/16/2019 7:51 PM CDT Clary Peters SEWER PIPE LAYER HELPER LAB BLOOD ORDERABLES Final R esult [facility] [address] Department [place] [address] documented in this encounter Visit Diagnoses Diagnosis Resistant hypertension- Primary BMI 30.0-30.9,adult Cerebrovascular arteriosclerosis Cerebral atherosclerosis documented in this encounter Discontinued Medications Medication Sig Discontinue Reason Start Date End Da te cloNIDine (CATAPRES-TTS) 0.1 mg/[address] 0.1 mg on the skin once a week for 4 doses Reorder 05/15/2019 08/16/2019 documented as of this encounter Care Teams X Ray Physician Relationship Specialty Start Date End Date Wesley Em MD PCP - General 09/30/16 12/01/21 Trey Pinedo MD [address] [place] [address] [place] [address] Consulting Physician Neurology 05/09/19 documented as of this encounter
--- OUTSIDE RECORDS SUMMARY | 2024-06-18 18:12 | XMS_ITS | Encounter Summary ---
Author Organization [facility] Medical Group Address [address] [place] [address] Care Team Providers Care Gauge Machine Operator Name Role Phone Wesley Em MD Primary Care Provider [phone] Trey Pinedo MD Unavailable [phone] Encounter Details Date Type Department Care Team (Late st Contact Info) Description 08/16/2019 Telephone [facility] [address] [facility] [address] [place] [address] Wesley Em MD [address] [place] [address] [address] [place] [address] Social History Tobacco Use Types Packs/Day Years Used Date Smoking Tobacco: Former Cigarettes 0.1 50 1 579 - 2009 Smokeless Tobacco: Never Alcohol Use Standard Drinks/Week Comments No 0 (1 standard drink = 0.6 oz pur e alcohol) PHQ-2 Answer Date Recorded PHQ-2 Score 0 02/22/2019 Sex and Gender Information Value Date Recorded Sex Assigned at Not on file Legal Sex Male 6:00 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 Tendick? They've been to several different pharmacies and asked for help but were told to checkw/you as to what you want him to have. Please advise. WELDER APPRENTICE documented in this encounter Plan of Treatment Not on file documented as of this encounter Visit Diagnoses Not on filedocumented in this encounter Care Teams Gauge Machine Operator Relationship Specialty Start Date End Date Wesley Em MD PCP - General 09/30/16 12/01/21 Trey Pinedo MD [address] [place] [address] Consulting Physician Neurology 05/09/19 documented as of this encounter
--- OUTSIDE RECORDS SUMMARY | 2024-06-18 18:12 | XMS_ITS | Encounter Summary ---
Author Organization 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
--- OUTSIDE RECORDS SUMMARY | 2024-06-18 18:12 | XMS_ITS | Encounter Summary ---
Author Organization [facility] Medical Group Address [address] [place] [address] Care Team Providers Care Machine Driller Name Role Phone Wesley Em MD Primary Care Provider [phone] Trey Pinedo MD Unavailable [phone] Reason for Visit * Reason Onset Date Comments Appointment 05/10/2019 erik Encounter Details Date Type Department Care Team (Late st Contact Info) Description 05/10/2019 Telephone [facility] [address] [facility] [address] [place] [address] Wesley Em MD [address] [place] [address] [address] [place] [address] Appointment (erik) Social History Tobacco Use Types Packs/Day Years [...] on file 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 No PCP availability within 7-10 days. Please contact pt directly for scheduling erik. Thank You Starla Martinez [facility] Medical Group ACO [phone] MILL OPERATOR documented in this encounter Plan of Treatment Not on file documented as of this encounter Visit Diagnoses Not on filedocumented in this encounter Care Teams Machine Driller Relationship Specialty Start Date End Date Wesley Em MD PCP - General 09/30/16 12/01/21 Trey Pinedo MD [address] [address] Consulting Physician Neurology 05/09/19 documented as of this encounter
--- OUTSIDE RECORDS SUMMARY | 2024-06-18 18:13 | XMS_ITS | Encounter Summary ---
Author Organization [facility] Address [address] [place] [address] Care Team Providers Care Emt/Dispatcher Name Role Phone Wesley Em MD Primary Care Provider [phone] Encounter Details Date Type Department Care Team (Late st Contact Info) Description 02/14/2019 Telephone [facility] [address] [address] Wesley Em MD [address] [place] [address] Social History Tobacco Use Types Packs/Day Years Used Date Smoking Tobacco: Former Smokeless Tobacco: Never Alcohol Use Standard Drinks/Week Comments No 0 (1 standard drink = 0.6 oz pur e alcohol) Sex and Gender Information Value Date Recorded Sex Assigned at Not on file 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 * Telephone Encounter - Tanisha Meraz - 02/15/2019 1:11 PM CDT Pt aware. Forwarded to referrals * Telephone Encounter - Barbara Musa MA - 02/15/2019 10:48 AM CDT See telephone message from 02/15/19 * Telephone Encounter - Marycarmen Jiang MA - 02/14/2019 4:25 PM CDT LMTC * Telephone Encounter - Marycarmen Jiang MA - 02/14/2019 4:25 PM CDT ----- Message from Wesley Em MD sent at 02/14/2019 4:18 PM CDT ----- Okay to leave a message repeat CT scan [address] scan all looked okay documented in this encounter Plan of Treatment Not on file documented as of this encounter Visit Diagnoses Not on filedocumented in this encounter Care Teams Emt/Dispatcher Relationship Specialty Start Date End Date Wesley Em MD PCP - General 09/30/16 12/01/21 documented as of this encounter
--- OUTSIDE RECORDS SUMMARY | 2024-06-18 18:13 | XMS_ITS | Encounter Summary ---
Author Organization [facility] Medical [facility] Address [address] [place] [address] Care Team Providers Care Insurance Underwriter Sales Name Role Phone Wesley Em MD Primary Care Provider [phone] Encounter Details Date Type Department Care Team (Late st Contact Info) Description 04/05/2019 Telephone [facility] 2 [facility] [address] [place] [address] Wesley Em MD [address] [address] Social History Tobacco Use Types Packs/Day Years Used Date Smoking Tobacco: Former Smokeless Tobacco: Never Alcohol Use Standard Drinks/Week Comments No 0 (1 standard drink = 0.6 oz pur e alcohol) PHQ-2 Answer Date Recorded PHQ-2 Score 0 02/22/2019 Sex and Gender Information Value Date Recorded Sex Assigned at Not on file Legal Sex Male 6:00 PM UNDERGRADUATE INTERNSHIP Gender Identity Not on file Sexual Orientation Straight 01/23/2021 10 :16 PM CDT documented as of this encounter Miscellaneous Notes * Telephone Encounter - Wesley Em MD - 04/05/2019 11:48 AM CDT Will received a call from his son tuyet stating that his father has not been taking his medications for 4 months * Telephone Encounter - Barbara Musa MA - 04/05/2019 10:41 AM CDT jr * Telephone Encounter - Grace Redmond - 04/05/2019 10:22 AM CDT Tuyet Zuniga called stating he is pts son (not on hippa) did not ask for any information just called stating pt told him he had not taken his medications for four months up until a few days ago and son was calling just as FYI. documented in this encounter Plan of Treatment Not on file documented as of this encounter Visit Diagnoses Not on filedocumented in this encounter Care Teams Insurance Underwriter Sales Relationship Specialty Start Date End Date Wesley Em MD PCP - General 09/30/16 12/01/21 documented as of this encounter
--- OUTSIDE RECORDS SUMMARY | 2024-06-18 18:13 | XMS_ITS | Encounter Summary ---
Author Organization [facility] Address [address] [place] [address] Care Team Providers Care Head Start Director Name Role Phone Wesley Em MD Primary Care Provider [phone] Encounter Details Date Type Department Care Team (Late st Contact Info) Description 01/31/2019 Telephone [facility] 2 [facility] [address] [place] [address] Wesley Em MD [address] [place] [address] Social History Tobacco Use Types Packs/Day Years Used Date Smoking Tobacco: Former Smokeless Tobacco: Never Alcohol Use Standard Drinks/Week Comments No 0 (1 standard drink = 0.6 oz pur e alcohol) Sex and Gender Information Value Date Recorded Sex Assigned at Not on file Legal 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 Pt given ph# to scheduling to set up * Telephone Encounter - Barbara Musa MA - 01/31/2019 12:45 PM CDT To referrals to reorder tests. I have canceled current ones as they are * Telephone Encounter - Wesley Em MD - 01/31/2019 12:40 PM CDT Do the test * Telephone Encounter - Barbara Musa MA - 01/31/2019 12:31 PM CDT Spoke with pt regarding ODR for xray and MRI spine. Pt states he still has some L side pain. Pt states he would like to have these done. Ok to cancel and reorder tests? Please advise documented in this encounter Plan of Treatment Not on file documented as of this encounter Visit Diagnoses Not on filedocumented in this encounter Care Teams Head Start Director Relationship Specialty Start Date End Date Wesley Em MD PCP - General 09/30/16 12/01/21 documented as of this encounter
--- OUTSIDE RECORDS SUMMARY | 2024-06-18 18:13 | XMS_ITS | Encounter Summary ---
Author Organization [facility] Medical [facility] Address [address] [place] [address] Care Team Providers Care Instrument Technician Name Role Phone Wesley Em MD Primary Care Provider [phone] Encounter Details Date Type Department Care Team (Late st Contact Info) Description 03/20/2019 Orders Only [facility] Internal [facility] 2 [facility] [address] [place] [id number] Wesley Em MD [address] [place] [address] [address] [place] [address] Essential hypertension (Primary Dx); Mixed hyperlipidemia Social History Tobacco Use Types Packs/Day Years Used Date Smoking Tobacco: Former Smokeless Tobacco: Never Alcohol Use Standard Drinks/Week Comments No 0 (1 standard drink = 0.6 oz pur e alcohol) PHQ-2 Answer Date Recorded PHQ-2 Score 0 02/22/2019 Sex and Gender Information Value Date Recorded Sex Assigned at Not on file 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 Triglycerides 232(H) <=149 mg/dL [facility] Comment: Interpretive Data [...] on 2018. HDL 39(L) >=40 mg/dL [facility] Comment: Interpretive Data [...] was last revised on 2018. LDL, calculated 96 <=129 mg/dL [facility] Comment: Interpretive Data Ages [...] was last revised on 2018. Non-HDL Cholesterol 142 mg/dL [facility] Comment: Interpretive Data Ages < [...] was last revised on 2018. Chol/HDL ratio 5 [facility] Blood specimen (specimen) 04/03/2019 11:43 AM CDT 04/03/2019 6:29 PM CDT Wesley Em MD LAB BLOOD ORDERABLES Final Res ult Performing Organization Address [facility] Co de Phone Number [facility] [address] [place] [address] * Magnesium (04/03/2019 11:43 AM CDT) Magnesium 2.1 1.4 - 2.5 mg/dL [facility] Blood specimen (specimen) 04/03/2019 11:43 AM CDT 04/03/2019 6:29 PM CDT Wesley Em MD LAB BLOOD ORDERABLES Final Res ult Performing Organization Address [facility] de Phone Number [facility] [address] [place] [address] * (ABNORMAL) Basic metabolic panel (04/03/2019 11:43 AM CDT) Sodium 143 135 - 145 mmol/L [facility] Potassium, pl 3.7 3.3 - 4.9 mmol/L [facility] Chloride 102 97 - 110 mmol/L [facility] CO2 30 22 - 32 mmol/L [facility] Anion gap 11 2 - 15 mmol/L [facility] BUN 14 8 - 25 mg/dL [facility] Creatinine 1.37(H) 0.80 - 1.30 mg/dL [facility] Glucose 122 70 - 199 mg/dL [facility] Comment: Interpretive Data Fasting glucose >/= 126 [...] interpretive data was last revised 2017. Calcium 9.8 8.5 - 10.3 mg/dL [facility] Blood specimen (specimen) 04/03/2019 11:43 AM CDT 04/03/2019 6:29 PM CDT Wesley Em MD LAB BLOOD ORDERABLES Final Res ult [facility] [address] [place] [address] documented in this encounter Visit Diagnoses Diagnosis Essential hypertension- Primary Unspecified essential hypertension Mixed hyperlipidemia documented in this encounter Care Teams Instrument Technician Relationship Specialty Start Date End Date Wesley Em MD PCP - General 09/30/16 12/01/21 documented as of this encounter
--- OUTSIDE RECORDS SUMMARY | 2024-06-18 18:13 | XMS_ITS | Encounter Summary ---
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
--- OUTSIDE RECORDS SUMMARY | 2024-06-18 18:13 | XMS_ITS | Encounter Summary ---
Author Organization [facility] Address [address] [place] [address] Care Team Providers Care Classification Officer Name Role Phone Wesley Em MD Primary Care Provider [phone] Reason for Visit * Reason Comments Follow-up Mayo's Encounter Details Date Type Department Care Team (Latest Contact Info) Description 11/15/2018 3:00 PM CDT Office Visit [facility] Gastroenterology at [address] [place] [address] Albert Craft MD [address] [place] [address] [address] [place] [address] Chronic GERD (Primary Dx); 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; History of colon polyps Social History Tobacco Use Types Packs/Day Years Used Date Smoking Tobacco: Former Smokeless Tobacco: Never Alcohol Use Standard Drinks/Week Comments No 0 (1 standard drink = 0.6 oz pur e alcohol) Sex and Gender Information Value Date Recorded Sex Assigned at Not on file 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 Gender Identity Not on file Sexual Orientation Straight 01/23/2021 10 :16 PM CDT documented as of this encounter Last Filed Vital Signs Vital Sign Reading Time Taken Comments Blood Pressure 132/74 11/15/2018 3:09 PM CDT Pulse 74 11/15/2018 3:09 PM CDT Temperature 36.7 ??C (98.1 ??F) 11/15/2018 3:09 PM CD T Respiratory Rate - - Oxygen Saturation 94% 11/15/2018 3:09 PM CDT Inhaled Oxygen Concentration - - Weight 88 kg (194 lb) 11/15/2018 3:09 PM CDT Height 176.5 cm (5' 9.5 ) 11/15/2018 3:09 PM CDT Body Mass Index 28.24 11/15/2018 3:09 PM CDT documented in this encounter Patient Instructions * Patient Instructions* Albert Craft MD - 11/15/2018 3:00 PM CDT - follow up as needed. - continue Nexium - colonoscopy in 2020 - EGD in 2020 documented in this encounter Progress Notes * Albert Craft MD - 11/15/2018 3:00 PM CDT Images from the original note were not included. FOLLOW-UP VISIT Chief Complaint Patient presents with ??? Follow-up ??? Mayo's SUBJECTIVE: HPI: Mr. Zuniga is following up for Follow-up and Mayo's . Overall he is doing well at this time. He has 1 episode of vomiting couple weeks ago. He was started on Nexium instead of his previous medication Zantac and seems to be doing well at this time. No abdominal pain. No difficulty swallowing. No heartburn with the Nexium. His last upper endoscopy last year showed short-segment Mayo's esophagus with no dysplasia. No weight loss. No blood in the stool. ROS: GENERAL: no fever, appetite is good. RESPIRATORY: no shortness of breath, no cough. SKIN: no itching, no rash. EYES: no redness, no itching, no visual changes. Past Medical History: Diagnosis Date ??? [...] 2012 Heart stents: [facility] Patient Active Problem List Diagnosis ??? Hyperlipidemia ??? BPH with urinary obstruction ??? Essential hypertension ??? Kidney stones ??? 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 Sensorineural hearing loss, bilateral ??? Bladder stones ??? Coronary artery disease of [place] artery of [place] heart with stable angina pectoris (CMS/HCC) ??? Chronic GERD ??? Type 2 diabetes mellitus with hyperlipidemia (CMS/HCC) ??? History of colon polyps Current Outpatient Medications on File Prior to Visit Medication Sig Dispense Refill ??? aspirin 81 mg tablet Take one by mouth one time per day 0 0 ??? atorvastatin (LIPITOR) 40 mg tablet TAKE ONE TABLET BY MOUTH EVERY DAY 90 tablet 3 ??? clopidogrel (PLAVIX) 75 mg tablet TAKE ONE TABLET BY MOUTH EVERY DAY 90 tablet 2 ??? esomeprazole DR (NexIUM) 40 mg capsule Take 1 capsule (40 mg total) by mouth daily before breakfast 30 capsule 11 ??? finasteride (PROSCAR) 5 mg tablet Take 1 tablet (5 mg total) by mouth daily. 90 tablet 3 ??? metoprolol (LOPRESSOR) 25 mg tablet Take 25 mg by mouth daily ??? potassium citrate ER (UROCIT-K) 10 mEq (1,080 mg) CR tablet take 1 tablet by oral route 2 timesevery day 0 0 ??? tamsulosin (FLOMAX) 0.4 mg extended release capsule TAKE ONE CAPSULE BY MOUTH EVERY DAY 90 capsule 3 No current facility-administered medications on file prior to visit. Family History Problem Relation Age of Onset ??? Hypertension Mother Hypertension; ??? Heart disease Mother Heart disease; ??? Diabetes Mother Diabetes mellitus; ??? Stroke Mother 66 Stroke; ??? Cancer Mother Cancer; ??? Alzheimer's disease Father Alzheimer's Disease; Social History Tobacco Use ??? Smoking status: Former Smoker ??? Smokeless tobacco: Never Used Substance Use Topics ??? Alcohol use: No ??? Drug use: No Allergies Allergen Reactions ??? Apple ??? Ciprofloxacin Rash Reaction: RASH, Reaction: Rash, OBJECTIVE: Vitals BP 132/74 (BP Location: Right arm, Patient Position: Sitting) Pulse 74 Temp 36.7 ??C (98.1 ??F) (Oral) Ht 176.5 cm (5' 9.5 ) Wt 88 kg (194 lb) SpO2 94% BMI 28.24 kg/m?? Exam: Patient is alert and oriented to time and place and self. Patient appears comfortable. Eyes: no jaundice. Lymphatics: no submandibular and no subclavicular lymphadenopathy. Lungs: CTA anteriorly. ENT: no mouth ulcers. GI: abdomen is soft, no distention, no tenderness, bowel sounds positive. Musculos keletal: no joint swelling, no edema. Skin: no rash. Psych: mood seems normal. No confusion. Labs and X Rays: - I reviewed all recent labs and X rays and endoscopy procedures. Office Visit on 11/07/2018 Component Date Value ??? Rapid Strep A, POC 11/07/2018 Negative Lab on 10/16/2018 Component Date Value ??? PSA-Total 10/16/2018 4.22 ??? Cholesterol 10/16/2018 159 ??? Triglycerides 10/16/2018 158* ??? HDL 10/16/2018 35* ??? LDL, calculated 10/16/2018 92 ??? Non-HDL Cholesterol 10/16/2018 124 ??? Chol/HDL ratio 10/16/2018 5 ??? Color, ur 10/16/2018 Yellow ??? Clarity, ur 10/16/2018 Clear ??? Specific gravity, ur 10/16/2018 1.023 ??? pH, urine 10/16/2018 5.0 ??? Protein, ur ql 10/16/2018 2+* ??? Glucose, ur ql 10/16/2018 Negative ??? Ketones, ur 10/16/2018 Negative ??? Bilirubin, ur 10/16/2018 Negative ??? Blood, ur 10/16/2018 1+* ? ? Urobilinogen, ur 10/16/2018 <2.0 ??? Nitrite, ur 10/16/2018 Negative ??? Leukocyte esterase, ur 10/16/2018 Negative ??? WBC 10/16/2018 6.4 ??? Hgb 10/16/2018 19.3* ??? Hct 10/16/2018 56.8* ??? Plt 10/16/2018 165 ??? MPV 10/16/2018 11.0 ??? RBC 10/16/2018 5.97* ??? MCV 10/16/2018 95.1 ??? MCH 10/16/2018 32.3 ??? MCHC 10/16/2018 34.0 ??? RDW CV 10/16/2018 13.0 ??? RDW SD 10/16/2018 45.1 ??? NRBC Abs 10/16/2018 0.00 ??? Sodium 10/16/2018 142 ??? Potassium, pl 10/16/2018 3.8 ??? Chloride 10/16/2018 103 ??? CO2 10/16/2018 26 ??? Anion Gap 10/16/2018 13 ??? BUN 10/16/2018 23 ??? Creatinine 10/16/2018 1.30 ??? Glucose 10/16/2018 117 ??? Calcium 10/16/2018 9.2 ??? Bilirubin, total 10/16/2018 0.8 ??? Protein, pl 10/16/2018 6.7 ??? Albumin 10/16/2018 4.1 ??? Alk phos 10/16/2018 108 ??? ALT 10/16/2018 17 ??? AST 10/16/2018 19 ??? Neutrophil absolute 10/16/2018 4.1 ??? Immature granulocyte abs* 10/16/2018 0.0 ??? Lymphocytes absolute 10/16/2018 1.2 ??? Monocyte absolute 10/16/2018 0.7 ??? Eosinophils absolute 10/16/2018 0.3 ??? Basophils, abs 10/16/2018 0.1 ??? Neutrophils 10/16/2018 64.3 ??? Immature granulocytes 10/16/2018 0.3 ??? Lymphocytes 10/16/2018 19.3 ??? Monocytes 10/16/2018 10.4 ??? Eosinophils 10/16/2018 4.0 ??? Basophils 10/16/2018 1.7 ??? WBC, ur 10/16/2018 0-5 ??? RBC, ur 10/16/2018 3-5* ??? Mucous, ur 10/16/2018 Present* ??? Hyaline casts, ur 10/16/2018 1-5 ??? GFR 10/16/2018 55 GI Assessment & Plan: Diagnoses and all orders for this visit: Chronic GERD (Primary) Assessment & Plan: Patient is doing well on Nexium. Will continue the same. 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 Next EGD should be in year 2020 for surveillance. History of colon polyps Assessment & Plan: Colonoscopy last year showed few adenoma polyps removed. Next colonoscopy will be 2020. Albert Craft MD documented in this encounter Miscellaneous Notes * Assessment & Plan Note - Albert Craft MD - 11/17/2018 11:23 AM CDT Associated Problem(s): History of colon polyps Colonoscopy last year showed few adenoma polyps removed. Next colonoscopy will be 2020. 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 Next EGD should be in year 2020 for surveillance. * Assessment & Plan Note - Albert Craft MD - 11/17/2018 11:21 AM CDT Associated Problem(s): Chronic GERD Patient is doing well on Nexium. Will continue the same. 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
--- OUTSIDE RECORDS SUMMARY | 2024-06-18 18:13 | XMS_ITS | Encounter Summary ---
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 - 05/09/2019 12:44 PM [facility] Hospital Encounter [facility] IMU [address] [place] [address] Wesley Bird MD 1 [facility] [place] [address] Verna Cox MD [address] [place] [address] [place] [id number] Polina Ashley MD 1 [facility] [address] [address] Oliver Spence MD [address] [place] [address] TIA (transient ischemic attack) (Primary Dx) Discharge Disposition: Discharge to home or self care Social History Tobacco Use Types Packs/Day Years Used Date Smoking Tobacco: Former Cigarettes 0.1 50 1 9 - 2008 Smokeless Tobacco: Never Alcohol Use Standard Drinks/Week Comments No 0 (1 standard drink = 0.6 oz pur e alcohol) PHQ-2 Answer Date Recorded PHQ-2 Score 0 02/22/2019 Sex and Gender Information Value Date Recorded Sex Assigned at Not on file Legal Sex Male 6:00 PM SCREW MACHINE ADJUST[employer] Gender Identity Not on file Sexual Orientation Straight 01/23/2021 10 :16 PM CDT documented as of this encounter Last Filed Vital Signs Vital Sign Reading Time Taken Comments Blood Pressure 163/89 05/09/2019 8:56 AM SCREW MACHINE ADJUSTER [employer]OMATIC Pulse 75 05/09/2019 8:56 AM SCREW MACHINE ADJUSTER [employer]OM[employer]IC Temperature 36 ??C (96.8 ??F) 05/09/2019 8:56 AM SCREW MACHINE ADJUSTER [employer]OMATIC Respiratory Rate 16 05/09/2019 8:56 AM SCREW MACHINE ADJUSTER AUTOMATIC Oxygen Saturation 95% 05/09/2019 8:56 AM SCREW MACHINE ADJUSTER AUTOMATIC Inhaled Oxygen Concentration - - Weight 91.9 kg (202 lb 9.6 oz) 05/07/2019 11:41 PM SCREW MACHINE ADJUSTER [employer]OMATIC Height 177.8 cm (5' 10 ) 05/08/2019 1:40 PM SCREW MACHINE ADJUSTER [employer]OMATIC Body Mass Index 29.07 05/07/2019 11:41 PM SCREW MACHINE ADJUSTER [employer]OMATIC documented in this encounter Discharge Diagnoses Diagnosis Hypertensive encephalopathy - HYPERTENSIVE ENCEPHALOPATHY Transient cerebral ischemic attack, unspecified - TRANSIENT CEREBRAL ISCHEMIC ATTACK, UNSPECIFIED Hypertensive emergency - HYPERTENSIVE EMERGENCY Type 2 diabetes mellitus without complications (CMS/HCC) (HCC) - TYPE 2 DIABETES MELLITUS WITHOUT COMPLICATIONS Hyperlipidemia, unspecified - HYPERLIPIDEMIA, UNSPECIFIED Essential (primary) hypertension - ESSENTIAL (PRIMARY) HYPERTENSION Unspecified essential hypertension Atherosclerotic heart disease of [place] coronary artery without angina pectoris - ATHEROSCLEROTIC HEART DISEASE OF [place] CORONARY ARTERY WITHOUT ANGINA PECTORIS Chronic obstructive pulmonary disease, unspecified (HCC) - CHRONIC OBSTRUCTIVE PULMONARY DISEASE, UNSPECIFIED Benign prostatic hyperplasia with lower urinary tract symptoms - BENIGN PROSTATIC HYPERPLASIA WITH LOWER URINARY TRACT SYMPTOMS Sensorineural hearing loss, bilateral - SENSORINEURAL HEARING LOSS, BILATERAL Gastro-esophageal reflux disease without esophagitis - GASTRO-ESOPHAGEAL REFLUX DISEASE WITHOUT ESOPHAGITIS Dysarthria and anarthria - DYSARTHRIA AND ANARTHRIA Personal history of nicotine dependence - PERSONAL HISTORY OF NICOTINE DEPENDENCE terminal clerk (current) use of antithrombotics/antiplatelets - CONVENTIONS ASSISTANT (CURRENT) USE OF ANTITHROMBOTICS/ANTIPLATELETS [facility] (current) use of aspirin - RETIREMENT (CURRENT) USE OF ASPIRIN Other alf (current) drug therapy - OTHER CONVENTIONS ASSISTANT (CURRENT) DRUG THERAPY Personal history of transient ischemic attack (TIA), and cerebral infarction without residual deficits - PERSONAL HISTORY OF TRANSIENT ISCHEMIC ATTACK (TIA), AND CEREBRAL INFARCTION WITHOUT RESIDUAL DEFICI Patient's other noncompliance with medication regimen - PATIENT'S OTHER NONCOMPLIANCE WITH MEDICATION REGIMEN Presence of coronary angioplasty implant and graft - PRESENCE OF CORONARY ANGIOPLASTY IMPLANT AND GRAFT Allergy status to other anti-infective agents status - ALLERGY STATUS TO OTHER ANTI-INFECTIVE AGENTS STATUS Allergy to other foods - ALLERGY TO OTHER FOODS Family history of malignant neoplasm, unspecified - FAMILY HISTORY OF MALIGNANT NEOPLASM, UNSPECIFIED Family history of epilepsy and other diseases of the nervous system - FAMILY HISTORY OF EPILEPSY AND OTHER DISEASES OF THE NERVOUS SYSTEM Family history of stroke - FAMILY HISTORY OF STROKE Family history of stroke (cerebrovascular) Family history of ischemic heart disease and other diseases of the circulatory system - FAMILY HISTORY OF ISCHEMIC HEART DISEASE AND OTHER DISEASES OF THE CIRCULATORY SYSTEM Family history of diabetes mellitus - FAMILY HISTORY OF DIABETES MELLITUS documented in this encounter Discharge Summaries * Polina Ashley MD - 05/09/2019 10:31 AM CST Inpatient Discharge Summary BRIEF OVERVIEW Admitting Provider: Oliver Spence MD Discharge Provider: Polina Ashley MD Primary Care Physician at Discharge: Wesley Em MD [phone] Admission Date: 05/07/2019 Discharge Date: 05/09/2019 Date of Service: May 09, 2019 Primary Discharge Diagnosis: TIA Hypertensive emergency Secondary Discharge Diagnosis: Active Problems: Hyperlipidemia Benign prostatic hyperplasia with lower urinary tract symptoms 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 TIA suspected. This present for admission and all the symptoms were resolved within 5 minutes. Workup is in the progress. Patient had echocardiogram showing diastolic dysfunction but ejection fraction is normal, no significant valvular disease. Carotid ultrasound shows mild to moderate disease but not severe. Dr. Pinedo so the patient in consultation and recommends MRI of the brain. But continuingstatin, blood pressure control, aspirin. 2. Hypertensive emergency, giving IV hydralazine, she was treated with IV labetalol. Starting his metoprolol and adding clonidine patch. Education provided regarding medication compliance. Patient verbalized understanding. 3. River's esophagus. Patient will follow with the GI as an outpatient. No symptoms at this time. 4. History of coronary artery disease and stents, patient denies having any symptoms. 5. DVT prophylaxis patient will be on Lovenox sh Today Patient is feeling much better, denies having any symptoms of speech impairment, facial droop or any under neurological problem. Blood pressure is much better controlled. MRI showed old stroke but nonew stroke. Neurology agrees with the plan to discharge and follow the primary care physician and Neurology in office. I had prolonged discussion with the patient regarding the compliance to the medications. Discussed the regarding the risk and benefits of controlling blood blood pressure, taking blood pressure numbers every day and writing down the blood pressure numbers to present to primary care physician. Discussed the complication of untreated blood pressure is specially hypertensive emergency. Discussed with the patient regarding MRI findings of old stroke and he told me that this all strokeis present from long time ago when he was 19 years old he was evaluated for some symptoms and showed that he had a stroke. Again emphasized the importance of statin medication to be taken every day, blood pressure medications. Adding clonidine patch to control blood pressure better. Adverse effects of the blood pressure medication discussed with the patient. He verbalized understanding. He is going to follow up with primary care physician closely. Active Issues Requiring Follow-up: Hypertensive emergency History of stroke TIA Test Results Pending at Discharge: Operative Procedures Performed: Other Procedures: Pertinent Test Results: MRI brain without contrast IMPRESSION: ?? 1. NO ACUTE INTRACRANIAL HEMORRHAGE OR INFARCT. 2. MODERATE SMALL VESSEL MICROVASCULAR ISCHEMIC DISEASE. 3. 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 Discharge Details Physical Exam at Discharge: Discharge Condition: improved and stable. Pulse: 75 Resp: 16 BP: 163/89 Temp: 36 ??C (96.8 ??F) Pertinent Exam Findings at Discharge: No apparent distress, patient is resting. Denies having any new symptoms. Chest S1-S2, regular, no murmur gallop. Lungs clear to auscultation bilaterally. Abdomen is soft, nontender, bowel sounds are present, no organomegaly. Extremities no edema. Neuro examination is nonfocal. No speech impairment. Patient is alert or x3 and wants to go home. Since patient showed dramatic improvement since yesterday including no more neurological symptoms and the blood pressure is much better controlled and in ideal numbers. Will send the patient home today. Discharge Disposition: Discharge to home or self care Code Status at Discharge: Full Code Discharge Instructions: Activity Instructions Discharge activity: Resume normal activity Diet Instructions Adult Discharge Diet Diet Type: Return to previous diet Other Instructions Call provider for: Temperature -Temperature greater than 101 degrees F Call provider for: difficulty breathing or chest pain Call provider for: hives Call provider for: persistent nausea or vomiting Call provider for: severe uncontrolled pain Call provider for: headache, visual disturbances, weakness and speech changes Discharge Medications: Your medication list START taking these medications cloNIDine 0.1 mg/24 hr Commonly known as: CATAPRES-TTS Place 0.1 mg on the skin once a week for 4 doses Start taking on: May 15, 2019 CONTINUE taking these medications aspirin 81 mg enteric coated tablet Take one by mouth one time per day atorvastatin 40 mg tablet Commonly known as: LIPITOR TAKE ONE TABLET BY MOUTH EVERY DAY bisacodyl 5 mg tablet clopidogrel 75 mg tablet Commonly known as: PLAVIX TAKE ONE TABLET BY MOUTH EVERY DAY esomeprazole DR 40 mg capsule Commonly known as: NexIUM Take 1 capsule (40 mg total) by mouth daily before breakfast finasteride 5 mg tablet Commonly known as: PROSCAR Take 1 tablet (5 mg total) by mouth daily. metoprolol 25 mg tablet Commonly known as: LOPRESSOR mupirocin 2 % cream Commonly known as: BACTROBAN potassium citrate ER 10 mEq (1,080 mg) CR tablet Commonly known as: UROCIT-K take 1 tablet by oral route 2 times every day tamsulosin 0.4 mg extended release capsule Commonly known as: FLOMAX TAKE ONE CAPSULE BY MOUTH EVERY DAY Outpatient Follow-Up: No future appointments. spent 35 minutes W MACHINE ADJUSTER AUTOMATIC documented in this encounter Discharge Instructions * Discharge Instructions* Brook Donis, RN - 05/09/2019 12:13 PM SCREW MACHINE ADJUSTER AUTOMATIC Images from the original note were not included. Transient Ischemic Attack WHAT YOU NEED TO KNOW: A transient ischemic attack (TIA) is also called a mini-stroke. A TIA happens when blood cannot flow to part of your brain. A TIA lasts a short time, and the effects are gone in less than 24 hours. ATIA does not cause lasting damage, but it may be a warning sign before an ischemic stroke occurs. An ischemic stroke happens when blood flow to the brain is blocked, usually by a blood clot. DISCHARGE INSTRUCTIONS: Call 911 for any of the following: ?? You have any of the following signs of a stroke: ?? Numbness or drooping on one side of your face ?? Weakness in an arm or leg ?? Confusion or difficulty speaking ?? Dizziness, a severe headache, or vision loss Seek care immediately if: ?? You have double vision or vision loss. ?? You have a severe headache or feel dizzy. ?? You are bleeding from your rectum or nose. Contact your healthcare provider or neurologist if: ?? Your blood pressure is higher or lower than you were told it should be. ?? You have questions or concerns about your condition or care. Medicines: You may need any of the following: ?? Antiplatelets prevent blood clots from forming. Aspirin is an antiplatelet. If you are told to take aspirin, do not take acetaminophen or ibuprofen instead. ?? Blood thinners help prevent blood clots. Examples of blood thinners include heparin and warfarin. Clots can cause strokes, heart attacks, and . The following are general safety guidelines to follow while you are taking a blood thinner: ?? Watch for bleeding and bruising while you take blood thinners. Watch for bleeding from your gumsor nose. Watch for blood in your urine and bowel movements. Use a soft washcloth on your skin, and a soft toothbrush to brush your teeth. This can keep your skin and gums from bleeding. If you shave,use an electric shaver. Do not play contact sports. ?? Tell your dentist and other healthcare providers that you take anticoagulants. Wear a bracelet or necklace that says you take this medicine. ?? Do not start or stop any medicines unless your healthcare provider tells you to. Many medicines cannot be used with blood thinners. ?? Tell your healthcare provider right away if you forget to take the medicine, or if you take too much. ?? Warfarin is a blood thinner that you may need to take. The following are things you should be aware of if you take warfarin. ?? Foods and medicines can affect the amount of warfarin in your blood. Do not make major changes to your diet while you take warfarin. Warfarin works best when you eat about the same amount of vitamin K every day. Vitamin K is found in green leafy vegetables and certain other foods. Ask for more information about what to eat when you are taking warfarin. ?? You will need to see your healthcare provider for follow-up visits when you are on warfarin. Youwill need regular blood tests. These tests are used to decide how much medicine you need. ?? Other medicines may be needed to treat diabetes, depression, high cholesterol, or blood pressureproblems. You may also need medicine to decrease the pressure in your brain, reduce pain, or prevent seizures. ?? Take your medicine as directed. Contact your healthcare provider if you think your medicine is not helping or if you have side effects. Tell him of her if you are allergic to any medicine. Keep a list of the medicines, vitamins, and herbs you take. Include the amounts, and when and why you take them. Bring the list or the pill bottles to follow-up visits. Carry your medicine list with you in case of an emergency. Follow up with your healthcare provider or neurologist in 1 to 2 days: If you are taking warfarin, you will need regular blood tests. You will also need your INR level checked. These tests help make sure you are taking the right amount of warfarin. Write down your questions so you remember to ask them during your visits. Prevent another TIA or a stroke: ?? Manage health conditions. High blood pressure, diabetes, and high cholesterol all increase your risk for a TIA or stroke. Take your medicine as directed. Follow your healthcare provider's instructions to check your blood pressure and blood sugar levels. Keep a record of your blood pressure and blood sugar readings. Bring the record with you to follow-up visits with your healthcare provider. ?? Eat a variety of healthy foods. The foods you eat can help prevent or manage high blood pressure, high cholesterol, and diabetes. Eat foods that are low in fat, cholesterol, salt, and sugar. Eat at least 5 servings of fruits and vegetables each day. Include food that are high in potassium, such as potatoes and bananas. ?? Reach or stay at a healthy weight. Weight loss can decrease your blood pressure and your risk for stroke. Ask your healthcare provider how much you should weigh and how to lose weight safely. Ask how often you should exercise and which exercises to do. ?? Do not smoke cigarettes or use illegal drugs. Smoking and drugs increase your risk for a stroke.Nicotine and other chemicals in cigarettes and cigars can also cause lung damage. Ask your healthcare provider for information if you currently smoke and need help to quit. E-cigarettes or smokeless tobacco still contain nicotine. Talk to your healthcare provider before you use these products. Ask y our healthcare provider for information if you need help quitting. Know the FAST test to recognize the signs of a stroke: ?? F = Face: Ask the person to smile. Drooping on 1 side of the mouth or face is a sign of a stroke. ?? A = Arms: Ask the person to raise both arms. One arm that slowly comes back down or cannot be raised is a sign of a stroke. ?? S = Speech: Ask the person to repeat a simple sentence that you say first. Speech that is slurred or sounds strange is a sign of a stroke. ?? T = Time: Call 911 if you see any of these signs. This is an emergency. ?? 2017 [employer] Information is for End User's use only and may not be sold, redistributed or otherwise used for commercial purposes. All illustrations and images included in CareNotes?? are the copyrighted property of [employer]. or [email or web address]. The above information is an hat braider only. It is not intended as medical advice for individual conditions or treatments. Talk to your doctor, nurse or pharmacist before following any medical regimen to see if it is safe and effective for you. W MACHINE ADJUSTER AUTOMATIC * Attachments The following attachments cannot be sent through Care Everywhere. * Clonidine (By injection) (Sami) documented in this encounter Medications at Time of Discharge aspirin 81 mg tablet Take one by mouth one time per day 0 0 06/27/2008 atorvastatin (LIPITOR) 40 mg tablet TAKE ONE TABLET BY MOUTH EVERY DAY 90 tablet 3 09/21/2018 9 bisacodyl 5 mg tablet Take by mouth 0 cloNIDine (CATAPRES-TTS) 0.1 mg/[address] 0.1 mg on the skin once a week for 4 doses 3 patch 3 05/15/2019 0 clopidogrel (PLAVIX) 75 mg tablet TAKE ONE TABLET BY MOUTH EVERY DAY 90 tablet 2 10/11/[address] (NexIUM) 40 mg capsule Take 1 capsule (40 mg total) by mouth daily before breakfast 30 capsule 11 10/30/2018 0 finasteride (PROSCAR) 5 mg tablet TAKE ONE TABLET BY MOUTH EVERY DAY 90 tablet 3 05/09/2019 9 metoprolol (LOPRESSOR) 25 mg tablet Take 25 mg by mouth daily 9 mupirocin (BACTROBAN) 2 % cream Apply topically 3 (three) times a day 0 potassium citrate ER (UROCIT-K) 10 mEq (1,080 mg) CR tablet take 1 tablet by oral route 2 times every day 0 0 10/12/2016 2 tamsulosin (FLOMAX) 0.4 mg extended release capsule TAKE ONE CAPSULE BY MOUTH EVERY DAY 90 capsule 3 09/21/2018 9 documented as of this encounter Ordered Prescriptions Prescription Sig Dispense Quantity Refills Last Filled Start Date End Date cloNIDine (CATAPRES-TTS) 0.1 mg/[address] 0.1 mg on the skin once a week for 4 doses 3 patch 3 05/15/2019 08/16/2019 documented in this encounter Discharge Disposition Disposition Code Departure Means Destination Discharge to home or self care documented in this encounter Progress Notes * Cleary Daisha - 05/09/2019 12:22 PM CST Nutrition Assessment Reason for Assessment: Initial Nutrition Assessment and Consult/Referral Encounter Date: 05/09/19 12:22 PM Nutrition Assessment and Plan: Patient is a 73 y.o. male. Admit Dx: TIA (TRANSIENT ISCHEMIC ATTACK). Admitted on 05/07/2019, current LOS is 1 days. Nutrition Screen What diet do you follow at home?: regular Have You Recently Lost Weight Without Trying?: No Poor Oral Intake for Four or More Days Prior to Admission: No Current diet order: Adult Diet Special; Low Fat, Low Chol, Low Na Adult Discharge Diet Pt intake is adequate. PO intakes: 100% meals Wt Readings from Last 10 Encounters: 05/07/19 91.9 kg (202 lb 9.6 oz) 05/08/19 79.1 kg (174 lb 6.1 oz) 04/03/19 87.5 kg (193 lb) 11/29/18 88.5 kg (195 lb) 11/15/18 88 kg (194 lb) 11/07/18 87.1 kg (192 lb) 10/30/18 89.4 kg (197 lb) 04/23/18 89.4 kg (197 lb) 01/09/18 89.8 kg (198 lb) 10/20/17 88.9 kg (196 lb) ASSESSMENT: Pt and family state he really doesn't watch his salt intake; he doesn't add salt to food but eats whatever he wants. Nutrition education: Recommend low-sodium diet, low-Na foods Time spent: 20 minutes. Pt anxious for DC Potential for compliance: Fair Nutrition Diagnosis 1: Food and nutrition-related knowledge deficit Related to: Physiologic issue, Lack of education Evidenced by: Patient interview ?? Interventions: Education, nutrition ?? Monitoring and Evaluation: Discharge plans, I/O, Labs, Plan of care, PO intake ?? Goals: Patient/caregiver able to teach back understanding of role of diet in disease process prior to discharge ? Estimated needs: ?? Total Kcal/kg Estimated Needs : 9.9 based on Kcal/k. Type of Weight Used for Estimated Kcals: Current ?? [facility] [place] Energy Needs: 2041.04 kcal using Stress Factor: 1.1 Activity Factor: 1.2 ?? [facility] Total Energy Needs + Fever Factor: 2042.04 ?? Total Protein Estimated Needs (gm): 73.52 Protein Needs Based on g/k.8 Type of Weight Used for Estimated Protein : Current. ?? Total Fluid Estimated Needs: 9.9 Fluid Needs Based on : 1 ml/kcal. Objective Anthropometrics Weight: 91.9 kg (202 lb 9.6 oz) Admission Weight : 91.9 kg Weight Change: 4.35 kg (9.60 lbs) IBW/kg (Calculated) : 75.3 kg Height: 177.8 cm (5' 10 ) Weight in (lb) to have BMI = 25: 173.9 BMI Classification: BMI 25.0 - 29.9 Overweight 3 Day I/O Summary 05/07 1900 - 05/09 0659 In: 240 [P.O.:240] Out: - Temp: 36 ??C (96.8 ??F) Past Medical History: Diagnosis Date ??? River esophagus ??? Chronic obstructive pulmonary disease (CMS/HCC) COPD ??? Diabetes mellitus (CMS/HCC) Diabetes ??? GERD (gastroesophageal reflux disease) ??? HX OTHER MEDICAL 2013 Heart stents ??? HX OTHER MEDICAL urinary stent s placed ??? Hyperlipidemia Hyperlipidemia ??? Hypertension Hypertension Medications and Lab Review: Scheduled Meds: aspirin, 81 mg, oral, Daily atorvastatin, 40 mg, oral, Daily cloNIDine, 1 patch, transdermal, Weekly clopidogrel, 75 mg, oral, Daily dutasteride, 0.5 mg, oral, Daily with dinner enoxaparin, 40 mg, subcutaneous, Daily-2100 metoprolol, 25 mg, oral, BID pantoprazole DR, 40 mg, oral, Daily tamsulosin, 0.4 mg, oral, Daily with dinner Continuous Infusions: Sodium Date Value Ref Range Status 05/07/2019 138 135 - 145 mmol/L Final Potassium, pl Date Value Ref Range Status 05/07/2019 4.1 3.3 - 4.9 mmol/L Final Comment: Hemolysis present. Results may be affected. Slightly hemolyzed specimen ok to release result per Marisabel Sexton. BUN Date Value Ref Range Status 05/07/2019 19 8 - 25 mg/dL Final Creatinine Date Value Ref Range Status 05/07/2019 1.05 0.80 - 1.30 mg/dL Final Albumin Date Value Ref Range Status 05/07/2019 4.4 3.5 - 5.0 g/dL Final Calcium Date Value Ref Range Status 05/07/2019 9.3 8.5 - 10.3 mg/dL Final HDL Date Value Ref Range Status 05/08/2019 38 (L) >=40 mg/dL Final Comment: Interpretive Data Ages < or = 19 years Acceptable: >45 mg/dL Borderline low: 40-45 mg/dL Low: <40 mg/dL Ages > or = 20 years Desirable: >or= 60 mg/dL Low: <40 mg/dL Literature References: 1. Expert Panel on Integrated Guidelines for Cardiovascular Health and Risk Reduction in Children and Adolescents. Pediatrics 2011;128:S213 2. NCEP Expert Panel. Circulation 2004;110:227 Current Interpretive Data was last revised on 2018. Lab Results Component Value Date HGBA1C 5.8 (H) 05/08/2019 POC Glucose: na Nursing Assessment: Kota Scale Score: 22 Diet Instructions Adult Discharge Diet Diet Type: Return to previous diet Nutrition Follow-Up : 05/14/19 Daisha Cleary, MS RD LDN W MACHINE ADJUSTER [employer] * Paulette Hameed OUTSOLE MOLDER - 05/09/2019 10:46 AM CST Speech Language/Pathology 05/09/19 1000 General Chart Reviewed Yes Session Type (no charge) Subjective Comment Pt. and family report that pt. is back to normal and that he is being discharged. Current Functional Status OUTSOLE MOLDER Swallowing Swallowing a regular diet without difficulty OUTSOLE MOLDER Cognition WFL- baseline according to family OUTSOLE MOLDER Communication Speech is clear and fluent. Oral motor skills are WNL. Speech Therapy Prognosis Services No skilled OUTSOLE MOLDER services at this time [employer] * Olive Kowalski NP - 05/09/2019 8:20 AM CST Neurology Progress Note SUBJECTIVE Verna Zuniga is a 73 y.o. male with chief complaint of speech difficulty Interval History: No acute events overnight. He continues to have symptom free overnight. Patient underwent MRI of the brain and echocardiogram. Awaiting on result. Review of Systems Constitutional: Denies fever, chills, or fatigue HEENT: Denies vision change, hearing, or sore throat Respiratory: Denies SOB, wheezing, or cough Cardiovascular: Denies chest pain, palpitation, or cyanosis GI: Denies abdominal pain, constipation, or diarrhea : Denies dysuria, polyuria, or hematuria Integumentary: Denies ulcer, rash, or wound Psych: Denies depression, anxiety, or suicidal thought Hemo/Lymph: Denies bleeding, bruising, or petechiae Metabolic/Endocrine: Denies cold intolerance, heat intolerance, or generalized weakness Allergies Allergen Reactions ??? Apple ??? Ciprofloxacin Rash Reaction: RASH, Reaction: Rash, Current Facility-Administered Medications Medication Dose Route Frequency Provider Last Rate Last Dose ??? acetaminophen (TYLENOL) tablet 650 mg 650 mg oral Q6H PRN Oliver Spence MD 650 mg at 05/08/19 1958 ??? aspirin enteric coated tablet 81 mg 81 mg oral Daily Polina Ashley MD 81 mg at 05/08/19 1617 ??? atorvastatin (LIPITOR) tablet 40 mg 40 mg oral Daily Polina Ashley MD 40 mg at 05/08/19 1617 ??? cloNIDine (CATAPRES-TTS) 0.1 mg/24 hr patch weekly 1 patch 1 patch transdermal Weekly Polina Ashley MD 1 patch at 05/08/19 1821 ??? clopidogrel (PLAVIX) tablet 75 mg 75 mg oral Daily Polina Ashley MD ??? dutasteride (AVODART) capsule 0.5 mg 0.5 mg oral Daily with dinner Oliver Spence MD 0.5 mg at 05/08/19 1723 ??? enoxaparin (LOVENOX) syringe 40 mg 40 mg subcutaneous Daily-2100 Polina Ashley MD ??? hydrALAZINE (APRESOLINE) injection 10 mg 10 mg intravenous Q6H PRN Polina Ashley MD 10 mg at107/08/18 2245 ??? metoprolol (LOPRESSOR) tablet 25 mg 25 mg oral BID Polina Ashley MD 25 mg at 05/08/19 2158 ??? pantoprazole DR (PROTONIX) extended release tablet 40 mg 40 mg oral Daily Polina Ashley MD 40 mg at 05/08/19 1617 ??? tamsulosin (FLOMAX) extended release capsule 0.4 mg 0.4 mg oral Daily with dinner Polina Ashley MD 0.4 mg at 05/08/19 1723 OBJECTIVE Vitals BP 135/74 (BP Location: Left arm, Patient Position: Sitting) Pulse 68 Temp 36.2 ??C (97.1 ??F) (Temporal) Resp 16 Ht 177.8 cm (5' 10 ) Wt 91.9 kg (202 lb 9.6 oz) SpO2 95% BMI 29.07 kg/m?? Intake/Output Summary (Last 24 hours) at 05/09/2019 0820 Last data filed at 05/08/2019 1900 Gross per 24 hour Intake 240 ml Output -- Net 240 ml Physical Exam Constitutional/General: well-developed, well-nourished, NAD HEENT: atraumatic, normocephalic, no discharge from mouth/ears Neck: atraumatic, no deformity. supple. Cardiovascular: regular S1S2 rhythm, no rubs/gallops, no murmurs Respiratory: regular, unlabored, CTA bilaterally. Abdominal: soft, nontender, normoactive BS Musculoskeletal: no atrophy, tenderness, abnormal movement Extremities: no edema, cyanosis or deformities Skin: warm, no rashes, no wound Psychiatric: Normal mood and affect. Neurological: 1) MS: alert, oriented x3, clear/fluent speech, comprehension intact, follow commands 2) CN: PERRLA, EOMI w/o nystagmus, visual field normal, facial sensation symmetrical No facial drooping, tongue at midline 3) Motor: muscle bulk/tone normal, strength 5/5 in BUE and BLE equally No pronator drift, DTRs 2-3 + symmetrically equal , no abnormal movement 4) Sensory: Intact to light touch symmetrically 5) Coordination: finger to nose normal 6) Gait: not assessed Lab/Radiology/Diagnostic Review: Recent Labs Lab Units 05/07/19 2356 WBC K/cumm 7.8 HEMOGLOBIN g/dL 19.8* HEMATOCRIT % 54.6* PLATELETS K/cumm 175 Recent Labs Lab Units 05/07/19 2356 SODIUM mmol/L 138 POTASSIUM PLASMA mmol/L 4.1 CHLORIDE mmol/L 99 CO2 mmol/L 27 ANIONGAP mmol/L 12 GLUCOSE mg/dL 106 BUN SERUM mg/dL 19 CREATININE mg/dL 1.05 CALCIUM mg/dL 9.3 ALBUMIN g/dL 4.4 ALK PHOS Units/L 107 ALT Units/L 20 AST Units/L 24 BILIRUBIN TOTAL mg/dL 0.6 1. 05/08/2019 CT of head without: No acute intracranial process. 2. 05/08/2019 carotid ultrasound: No high-degree stenosis. 3. 05/07/2019 EKG: Sinus rhythm. HR 69. 4. 05/08/2019 cholesterol 166, triglyceride 170, HDL 38, LDL 94. ?Investigation 5. May 08, 2019 echocardiogram with EF 65-70%, no mural thrombus or valvular vegetation no PFO. 6. May 08, 2019 MRI of the brain did not show acute intracranial abnormality. 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 I personally reviewed the above labs, images, and tests. ASSESSMENT/ PLAN This is a 73 years old male who was admitted to the hospital because of speech difficulty that lasted for about 10 minutes. Physical examination is unremarkable. The differential diagnosis include TIA and hypertensive encephalopathy, less likely stroke. 1. Speech difficulty. Patient continues to be symptoms free overnight. Both MRI of the brain and echocardiogram were unremarkable. Continue aspirin 81 mg daily and Plavix 75 mg daily. Discussed aboutstroke prevention. 2. Dyslipidemia. Continue atorvastatin 40 mg q.day 3. Hypertension. On metoprolol, hydralazine clonidine. Plan of care discussed with the nurse. No further testing necessary from Neurology standpoint. Please call if there is any question. [employer] * Estephanie Jones, PT - 05/08/2019 5:25 PM CST Physical Therapy 05/08/19 7832 General Chart Reviewed Yes Session Type Evaluation PT Received On 05/08/19 Subjective Agreeable to Therapy Subjective Comment Reports being up ad lukasz and back to baseline. Says he never knew he was slurring. Was arguing with his son and he noticed it. Family/Caregiver Present Yes (multi family members) Physical Therapy-Patient Goal return home Home Living Type of Home House Home Layout One level Home Access Stairs to enter with rails Entrance Stairs-Number of Steps 2 Home Mobility Equipment Wheeled walker;Single point cane Prior Function Level of [place] Independent functional transfers;Independent with ambulation Lives With Alone Prior Function Comments Indep w/o device Pain Assessment Pain Assessment No/denies pain Cognition Orientation Oriented X4 (person, place, time, situation) Compliance/Behavior Easy to engage Sensation Numbness/Tingling No Bed Mobility Bed Mobility Yes Bed Mobility 1 Level of Assistance 1 Independent Transfers Transfer Yes Transfer 1 Transfer Device 1 No device Transfer Level of Assistance 1 Independent Trials/Comments 1 reports up ad lukasz Ambulation Functional Ambulation Category 5 Ambulation 1 Distance (ft) 1 200 Device 1 No device Assistance 1 Independent Quality of Gait 1 good Ambulation Comments 1 R foot is in ER RLE Assessment RLE Assessment WFL LLE Assessment LLE Assessment WFL Other Comments Other PT Comments Pt reports being up ad lukasz. Pt was INdep w/o device. No gait deviations or LOB. Pt ok up ad lukasz. DC PT Assessment Prognosis Good Plan Plan Discharge;If this is the last note, consider this the discharge summary Recommendation/Plan PT Recommendation/Plan Home independently PT Frequency One time visit (Discharge from this service) PT - OK to Discharge Yes PT Evaluation Complete Yes Estephanie Jones, PT [employer] * Doroteo Martínez, [facility] - 05/08/2019 2:14 PM CST This therapy was substituted for Finasteride per protocol. [employer]ACHINE [employer] * Marycarmen Beckman, OT - 05/08/2019 1:31 PM CST Occupational Therapy 05/08/19 1145 General Chart Reviewed Yes Session Type Evaluation OT Received On 05/08/19 Subjective Agreeable to Therapy Family/Caregiver Present No Occupational Therapy-Patient Goal return home Home Living Type of Home House Home Mobility Equipment Wheeled walker;Single point cane Additional Comments uses no device at PLOF Prior Function Level of [place] Independent with ADLs;Independent functional transfers;Independent with ambulation;Independent with homemaking with ambulation Driving Yes ADL Assistance Independent Instrumental ADL (IADL) Assistance Independent Grooming Grooming: Where assessed (standing at chair simulating hand washing ) Grooming: Equipment utilized (none) Grooming: Level of assistance Supervision Grooming: Assistance with Wash/dry hands LE Dressing LE Dressing: Where assessed Sitting LE Dressing: Level of assistance Independent LE Dressing: Assistance with Don/doff R sock;Don/doff L sock Pain Assessment Pain Score 0 - No pain Cognition Overall Cognitive Status WFL Arousal/Alertness Alert Orientation Oriented X4 (person, place, time, situation) Following Commands Follows all commands and directions without difficulty Compliance/Behavior Easy to engage Sensation Light Touch WFL Numbness/Tingling No Coordination Serial Opposition WFL Eye-Hand Coordination WFL Static Sitting Balance Static Sitting-Balance Support No upper extremity supported Static Sitting-Sitting Surface Chair Static Sitting-Level of Assistance Independent Dynamic Sitting Balance Dynamic Sitting-Balance Support No upper extremity supported Dynamic Sitting-Balance Forward lean Dynamic Sitting-Sitting Surface Chair Dynamic Sitting-Level of Assistance Independent Static Standing Balance Static Standing-Balance Support No upper extremity supported Static Standing-Standing Surface Floor Static Standing-Level of Assistance Close supervision Transfers Transfer (minimal room mobility SBA without AD ) Transfer 1 Transfer From 1 Sit Transfer Type 1 To and from Transfer to 1 Stand Technique 1 Sit to stand;Stand to sit Transfer Device 1 No device Transfer Level of Assistance 1 Close supervision RUE Assessment RUE Assessment WFL (MMT 5/5 grossly ) LUE Assessment LUE Assessment WFL (5/5 grossly ) Recommendation/Plan OT - OK to Discharge Yes OT Evaluation Complete Yes W [employer]ACHINE [employer] * Bharat Lipscomb RN - 05/08/2019 10:52 AM CST 05/08/19 1015 Information Information Obtained From Adult child Referral Data Referral Source Self referral Referral Reason Discharge Planning Prior to Admission Primary Caregiver Self Support System Family members Support system contact info (name, phone, availablity) (spoke with son, as pt is sleeping states pt lives in his home with , uses no aids and handled his ADL's without diff, goal is to return home, is concerned that pt will need some resources like med reminders as thinks father hasn't been taking his med) Home Care Services No Durable Medical Equipment None Living Arrangements Spouse/significant other Type of Residence Private residence Steps in home? Yes, Outside of home Number of steps outside: 3 steps Medication management Needs Assistance (Comment) (son thinks pt has not been taking his meds) Financial Resource Income Shelter/Pension Payor Source Medicare;[employer] Potential Discharge Needs Anticipated discharge level of care Private residence Pt/Family agrees with Anticipated Level of Care Yes Patient expects to be discharged to: Private residence Dialysis No Behavioral Health Services No W MACHINE AD[employer] * Bharat Lipscomb RN - 05/08/2019 10:47 AM CST 05/08/19 1047 Basic Mobility - 6 Click How much difficulty does the patient have: Turning over in bed 4 How much difficulty does the patient currently have: Sitting down and standing up from a chair witharms? 4 How much difficulty does the patient have: Moving from lying on back to sitting on the side of the bed? 4 How much difficulty does the patient have: Moving to and from a bed to a chair including wheelchair? 4 How much help does the patient currently need: Walk in hospital room? 4 How much help from another person does the patient currently need: Climbing 3-5 steps with a railing? 4 Total Score (range 6-24) 24 W MACHINE [employer] documented in this encounter H&P Notes * Polina Ashley MD - 05/08/2019 5:12 PM CST History and Physical Date of service May 08, 2019 Primary care physician Wesley Em SUBJECTIVE HPI: This is a very pleasant 73-year-old male, past medical history of COPD, GERD, hypertension, dyslipidemia, presented to hospital emergency room with symptoms of slurring of the speech early last night at around 11:00 p.m. While he was discussing finances with his kids. The slurring of the speech lasted about 5 minutes. Patient himself did not notice the sling but family noticed. This is why patient is in the hospital. Since admission to emergency room with noted that patient has the severe hypertension, this is uncontrolled, presented with hypertensive emergency. It was treated with IV labetalol in emergency room with improvement of the blood pressure but at then again blood pressure bumped up and I gave him hydralazine IV. Currently blood pressure is systolic 185. At this time we would like to have the blood pressure improvement rather slowly then acutely and may be continue permissive hypertension. Patient's son states that patient forgets to take his medications. Patient denies having any headache, blurry vision, double vision, focal weakness or numbness, nausea vomiting or any other complaint. Please see my review of systems. Past Medical History: Diagnosis Date ??? River esophagus ??? Chronic obstructive pulmonary disease (CMS/HCC) [...] 2012 Heart stents: [facility] Medications Prior to Admission Medication Sig Dispense Refill Last Dose ??? aspirin 81 mg tablet Take one by mouth one time per day 0 0 05/07/2019 ??? atorvastatin (LIPITOR) 40 mg tablet TAKE ONE TABLET BY MOUTH EVERY DAY 90 tablet 3 05/07/2019 ??? bisacodyl 5 mg tablet Take by mouth 05/07/2019 ??? esomeprazole DR (NexIUM) 40 mg capsule Take 1 capsule (40 mg total) by mouth daily before breakfast 30 capsule 11 05/07/2019 ??? metoprolol (LOPRESSOR) 25 mg tablet Take 25 mg by mouth daily 05/07/2019 ??? mupirocin (BACTROBAN) 2 % cream Apply topically 3 (three) times a day 05/07/2019 ??? potassium citrate ER (UROCIT-K) 10 mEq (1,080 mg) CR tablet take 1 tablet by oral route 2 timesevery day 0 0 05/07/2019 ??? tamsulosin (FLOMAX) 0.4 mg extended release capsule TAKE ONE CAPSULE BY MOUTH EVERY DAY 90 capsule 3 05/07/2019 ??? clopidogrel (PLAVIX) 75 mg tablet TAKE ONE TABLET BY MOUTH EVERY DAY 90 tablet 2 Taking ??? finasteride (PROSCAR) 5 mg tablet Take 1 tablet (5 mg total) by mouth daily. 90 tablet 3 Unknown Allergies Allergen Reactions ??? Apple ??? Ciprofloxacin Rash Reaction: RASH, Reaction: Rash, Social History Tobacco Use ??? Smoking status: Former Smoker Packs/day: 0.05 Years: 50.00 Pack years: 2.50 Types: Cigarettes Last attempt to quit: 2009 Years since quittin.8 ??? Smokeless tobacco: Never Used Substance Use Topics ??? Alcohol use: No Family History Problem Relation Age of Onset ??? Hypertension Mother Hypertension; ??? Heart disease Mother Heart disease; ??? Diabetes Mother Diabetes mellitus; ??? Stroke Mother 66 Stroke; ??? Cancer Mother Cancer; ??? Alzheimer's disease Father Alzheimer's Disease; Review of Systems: 1. Constitutional Denies: weight loss, weight gain, fever, chills, night sweats, fatigue 2. Eyes Denies: change in vision, double vision, eye pain, eye discharge, icterus 3. ENT Denies: change in hearing, ear pain, ear discharge, nose bleed, nasal congestion, sore throat 4. Respiratory Denies: SOB, wheezing, cough, sputum, hemoptysis 5. CV Denies: chest pain, palpitations, syncope, edema, dyspnea 6. GI Denies: abdominal pain, decreased appetite, nausea, vomiting, change in bowel habitus, diarrhea, vomiting, constipation, melena, BRBPR 7. Denies: dysuria, frequency, hematuria, nocturia, urgency 8. Metabolic Denies: cold intolerance, heat intolerance, polyphagia, polydipsia 9. Neurologic Positive for slurring of the speech Denies: headache, dizziness, seizure, change in mental status, focal weakness, focal numbness 10. Musculoskeletal Denies: myalgia, joint pain, joint redness, joint swelling, extremity pain 11. Hematologic Denies: bleeding, bruising, hematoma, lymphadenopathy, icterus OBJECTIVE Vitals: Arrival Vitals Temp 05/08/19 1340 36.4 ??C (97.6 ??F) Pulse 05/07/19 2340 80 Resp 05/07/19 2340 25 BP 05/07/19 2340 (!) 210/125 SpO2 05/07/19 2340 97 % Temp src 05/08/19 1340 Oral Heart Rate Source 05/08/19 1340 Monitor Patient Position 05/08/19 0100 Lying BP Location 05/08/19 0100 Left arm FiO2 (%) -- 24hr Min/Max: Temp Min: 36.4 ??C (97.6 ??F) Max: 36.4 ??C (97.6 ??F) Pulse Min: 61 Max: 81 BP Min: 153/79 Max: 210/125 Resp Min: 10 Max: 28 SpO2 Min: 77 % Max: 99 % Most Recent : Vitals: 05/08/19 1600 BP: Pulse: 80 Resp: Temp: SpO2: No intake or output data in the 24 hours ending 05/08/19 1712 Physical exam: Eyes: EOMI, OZZY, sclare non icteric Neck: supple, no nuchal ridigity, no gross carotid bruits appreciated Pharynx: No gross oral lesion, tongue midline, mucosa moist Lungs CTA Heart: [id number], no significant murmur or gallop Abd: +BS, Non Tender, Non distended, No gross hepatomegaly Lower Ext: No gross edema Neuro: No new gross deficits appreciated, no facial drooping or asymmetry Musculoskeletal: no gross joint erythema, edema, tenderness Genitourinary: No change Skin: No change Lab/Radiology/Diagnostic Review: Recent Results (from the past 24 hour(s)) POCT glucose Collection Time: 05/07/19 11:54 PM Result Value Ref Range Glucose, POC 99 (H) 71 - 98 mg/dL Basic metabolic panel Collection Time: 05/07/19 11:56 PM Result Value Ref Range Sodium 138 135 - 145 mmol/L Potassium, pl 4.1 3.3 - 4.9 mmol/L Chloride 99 97 - 110 mmol/L CO2 27 22 - 32 mmol/L Anion gap 12 2 - 15 mmol/L BUN 19 8 - 25 mg/dL Creatinine 1.05 0.80 - 1.30 mg/dL Glucose 106 70 - 199 mg/dL Calcium 9.3 8.5 - 10.3 mg/dL CBC with auto differential Collection Time: 05/07/19 11:56 PM Result Value Ref Range WBC 7.8 3.8 - 9.9 K/cumm Hgb 19.8 (H) 13.0 - 17.5 g/dL Hct 54.6 (H) 38.9 - 50.3 % Plt 175 150 - 400 K/cumm MPV 10.0 9.1 - 12.3 fL RBC 5.96 (H) 4.30 - 5.80 M/cumm MCV 91.6 81.3 - 96.4 fL MCH 33.2 27.1 - 33.3 pg MCHC 36.3 (H) 32.3 - 35.7 g/dL RDW CV 12.4 11.1 - 14.9 % RDW SD 41.8 35.7 - 48.1 fL NRBC abs 0.00 0.00 - 0.01 K/cumm Protime-INR Collection Time: 05/07/19 11:56 PM Result Value Ref Range PT 12.8 9.5 - 13.0 sec INR 1.13 0.90 - 1.20 aPTT Collection Time: 05/07/19 11:56 PM Result Value Ref Range aPTT 35.0 25.0 - 37.0 sec Troponin T Collection Time: 05/07/19 11:56 PM Result Value Ref Range Troponin T <0.01 0.00 - 0.01 ng/mL Acetaminophen level Collection Time: 05/07/19 11:56 PM Result Value Ref Range Acetaminophen <15.0 10.0 - 30.0 mcg/mL Ethanol Collection Time: 05/07/19 11:56 PM Result Value Ref Range Ethanol <10 <=10 mg/dL Salicylate level Collection Time: 05/07/19 11:56 PM Result Value Ref Range Salicylate <5.0 4.0 - 29.0 mg/dL Differential, auto Collection Time: 05/07/19 11:56 PM Result Value Ref Range Neutrophil abs 4.8 1.7 - 6.5 K/cumm Imm gran abs 0.0 0.0 - 0.1 K/cumm Lymphocyte abs 1.8 0.8 - 3.3 K/cumm Monocyte abs 0.8 0.2 - 0.8 K/cumm Eosinophil abs 0.3 0.0 - 0.5 K/cumm Basophil abs 0.1 0.0 - 0.1 K/cumm Neutrophil pct 61.4 % Imm gran pct 0.5 % Lymphocyte pct 22.4 % Monocyte pct 9.7 % Eosinophil pct 4.2 % Basophil pct 1.8 % eGFR Collection Time: 05/07/19 11:56 PM Result Value Ref Range GFR 71 mL/min/1.73 m2 Hepatic function panel Collection Time: 05/07/19 11:56 PM Result Value Ref Range Bilirubin, total 0.6 0.1 - 1.2 mg/dL Bilirubin, direct <0.2 0.1 - 0.3 mg/dL Protein, pl 6.9 6.5 - 8.5 g/dL Albumin 4.4 3.5 - 5.0 g/dL Alk phos 107 40 - 130 Units/L ALT 20 7 - 55 Units/L AST 24 10 - 50 Units/L Lipid panel Collection Time: 05/08/19 6:48 AM Result Value Ref Range Cholesterol 166 30 - 199 mg/dL Triglycerides 170 (H) <=149 mg/dL HDL 38 (L) >=40 mg/dL LDL, calculated 94 <=129 mg/dL Non-HDL Cholesterol 128 mg/dL Chol/HDL ratio 4 Hemoglobin A1c Collection Time: 05/08/19 6:48 AM Result Value Ref Range Hgb A1C 5.8 (H) 4.0 - 5.6 % Estimated Average Glucose 120 mg/dL Current Facility-Administered Medications Medication Dose Route Frequency Provider Last Rate Last Dose ??? aspirin enteric coated tablet 81 mg 81 mg oral Daily Polina Ashley MD 81 mg at 05/08/191616 ??? atorvastatin (LIPITOR) tablet 40 mg 40 mg oral Daily Polina Ashley MD 40 mg at 05/08/191616 ??? cloNIDine (CATAPRES-TTS) 0.1 mg/24 hr patch weekly 1 patch 1 patch transdermal Weekly Polina Ashley MD ??? clopidogrel (PLAVIX) tablet 75 mg 75 mg oral Daily Polina Ashley MD ??? dutasteride (AVODART) capsule 0.5 mg 0.5 mg oral Daily with dinner Oliver Spence MD ??? hydrALAZINE (APRESOLINE) injection 10 mg 10 mg intravenous Q6H PRN Polina Ashley MD ??? metoprolol (LOPRESSOR) tablet 25 mg 25 mg oral BID Polina Ashley MD ??? pantoprazole DR (PROTONIX) extended release tablet 40 mg 40 mg oral Daily Polina Ashley MD 40 mg at 05/08/191616 ??? tamsulosin (FLOMAX) extended release capsule 0.4 mg 0.4 mg oral Daily with dinner Polina Ashley MD A/P 1. TIA suspected. This present for admission and all the symptoms were resolved within 5 minutes. Workup is in the progress. Patient had echocardiogram showing diastolic dysfunction but ejection fraction is normal, no significant valvular disease. Carotid ultrasound shows mild to moderate disease but not severe. Dr. Pinedo so the patient in consultation and recommends MRI of the brain. But continuing statin, blood pressure control, aspirin. 2. Hypertensive emergency, giving IV hydralazine, she was treated with IV labetalol. Starting his metoprolol and adding clonidine patch. Education provided regarding medication compliance. Patient verbalized understanding. 3. River's esophagus. Patient will follow with the GI as an outpatient. No symptoms at this time. 4. History of coronary artery disease and stents, patient denies having any symptoms. 5. DVT prophylaxis patient will be on Lovenox shots. 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 male with chief complaint of speech difficulty HPI: Patient had sudden onset of speech difficulty while he was arguing with his son about some financial issues. I talked his son who reported that patient's speech did not make sense. It lasted for about 10 minutes, then resolved. Patient denies any associated headache, acute visual change, dizziness or focal weakness of extremities. He was found to have highly elevated blood pressure 210/125. He has hypertension, but is noncompliant with taking medications. Patient is supposed to take aspirin 81 mg daily, Plavix 75 mg daily and atorvastatin 40 mg daily Past Medical History: Diagnosis Date ??? River esophagus ??? Chronic obstructive pulmonary disease (CMS/HCC) [...] 2013 Heart stents: [facility] October/October Allergies Allergen Reactions ??? Apple ??? Ciprofloxacin Rash Reaction: RASH, Reaction: Rash, Medications Prior to Admission Medication Sig Dispense Refill Last Dose ??? aspirin 81 mg tablet Take one by mouth one time per day 0 0 05/07/2019 ??? atorvastatin (LIPITOR) 40 mg tablet TAKE ONE TABLET BY MOUTH EVERY DAY 90 tablet 3 05/07/2019 ??? bisacodyl 5 mg tablet Take by mouth 05/07/2019 ??? esomeprazole DR (NexIUM) 40 mg capsule Take 1 capsule (40 mg total) by mouth daily before breakfast 30 capsule 11 05/07/2019 ??? metoprolol (LOPRESSOR) 25 mg tablet Take 25 mg by mouth daily 05/07/2019 ??? mupirocin (BACTROBAN) 2 % cream Apply topically 3 (three) times a day 05/07/2019 ??? potassium citrate ER (UROCIT-K) 10 mEq (1,080 mg) CR tablet take 1 tablet by oral route 2 timesevery day 0 0 05/07/2019 ??? tamsulosin (FLOMAX) 0.4 mg extended release capsule TAKE ONE CAPSULE BY MOUTH EVERY DAY 90 capsule 3 05/07/2019 ??? clopidogrel (PLAVIX) 75 mg tablet TAKE ONE TABLET BY MOUTH EVERY DAY 90 tablet 2 Taking ??? finasteride (PROSCAR) 5 mg tablet Take 1 tablet (5 mg total) by mouth daily. 90 tablet 3 Unknown Family History Problem Relation Age of Onset [...] ??? Highest education level: Not on file Tobacco Use ??? Smoking status: Former Smoker Packs/day: 0.05 Years: 50.00 Pack years: 2.50 Types: Cigarettes Last attempt to quit: 2009 Years since quittin.8 ??? Smokeless tobacco: Never Used Substance and Sexual Activity ??? Alcohol use: No ??? Drug use: No ??? Sexual activity: Defer Review of Systems: Constitutional: No weight loss/gain, Fatigue, excessive sweating, fever, chills HEENT: No headache/migraine, hearing loss,change in vision, cataracts Respiratory: No trouble breathing, coughing/wheezing, asthma, snoring Muscle skeletal: No joint pain, muscle pain, back pain, neck pain, limb pain Cardiovascular: No chest pain, palpitations, irregular heart beat, passing out, fainting Vascular: NoTingling, numbness, swelling, discoloration of the extremities Gastrointestinal: No nausea, vomiting, diarrhea, abdominal pain Neurologic: No tremors, weakness, numbness, changes in gait, changes in memory. Has speech difficulty. Genitourinary: No painful urination, difficulty urination, frequent urination, urinary incontinence, discoloration of urine Reproductive: No hot flash, changes in libido, sexual transmitted disease Metabolic//Endocrine: No sensitivity to heat/cold, abnormal sleep pattern, skin change No hot flash. Psychiatric: No anxiety, depression, mood swings Objective Vitals: 24hr Min/Max: Temp Min: 36.4 ??C (97.6 ??F) Max: 36.4 ??C (97.6 ??F) Pulse Min: 61 Max: 81 BP Min: 153/79 Max: 210/125 Resp Min: 10 Max: 28 SpO2 Min: 77 % Max: 99 % Most Recent: Vitals: 05/08/19 1600 BP: Pulse: 80 Resp: Temp: SpO2: Physical Exam: Constitutional: well-developed, well-nourished and in no acute stress. Head/Neck: atraumatic, no deformity or stiffness of neck Ears, Nose, Mouth and Throat: No ear tenderness, rhinorrhea, dry mouth or redness of throat. Eyes: Conjunctiva is clear. Sclera normal in color. Eyelid is normal Cardiovascular: S1, S2 are regular. No rubs or gallops Respiratory: clear bilaterally. No rales or wheezing. Adequate air entry Musculoskeletal: no atrophy, Tenderness or abnormal movement Extremities: no edema, cyanosis or deformities Skin: no rashes or lesions Psychiatric: normal mood and affect. Judgment and insight appear intact Mental status: alert, speech fluent, comprehension intact, Follow command appropriately Cranial nerve: GAYE, corneal reflex present. EOMI, VFF by confrontation method. Facial sensations symmetrical. Face symmetrical. shoulder shrug symmetrical b/l. tongue midline. Motor: bulk normal, tone normal, pronator drift negative. Strength 5/5. No abnormal movement. Coordination: FTN normal Reflexes: Biceps 2+ b/l, Triceps 2+ b/l, Knee reflex 2+ b/l, Achilles reflex 2+ b/l. plantar downward b/l. Sensation: LT Normal and symmetrical. Gait: not assessed Lab/Radiology/Diagnostic Review: 1. 05/08/2019 CT of head without: No acute intracranial process. 2. 05/08/2019 carotid ultrasound: No high-degree stenosis. 3. 05/07/2019 EKG: Sinus rhythm. HR 69. 4. 05/08/2019 cholesterol 166, triglyceride 170, HDL 38, LDL 94. Assessment /Plan Active Problems: Hyperlipidemia Benign prostatic hyperplasia with lower urinary tract symptoms 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 Hypertensive emergency TIA (transient ischemic attack) History of noncompliance with medical treatment Impression: This is a 73 years old male who was admitted hospital because of speech difficulty the lasted for about 10 minutes. Physical examination is unremarkable. The differential diagnosis include TIA and hypertensive encephalopathy, less likely stroke Recommendation: 1. MRI of the brain 2. Echocardiogram 3. Continue Aspirin 81 mg daily and Plavix 75 mg daily 4. Continue atorvastatin 40 mg daily 5. Consulted patient about compliance with taking medications Trey Pinedo MD 05/08/2019 4:34 PM [employer] documented in this encounter Nursing Notes * Matthew Draper RN - 05/08/2019 8:16 PM CST Of the floor to MRI at 1930. Requested pain medicine while in MRI for lower back pain that is postural when laying down. Rated at 10/10 aching/stabbing in quality. *See MAR [employer] documented in this encounter ED Notes * Wseley Bird MD - 05/07/2019 11:40 PM CST HPI Chief Complaint Patient presents with ??? Altered Mental Status 11:38 PM 05/07/2019 Verna Zuniga is a 73 year old male with a PMHx of DM, HLD, COPD, HTN, river esophagus, GERD andHLD presenting to ED for AMS. Patient's son states that they were sitting at table and talking whenpatient developed slurred and impaired speech for around 5 minutes before returning to baseline status. Per family member, patient is non-compliant in taking medication. Patient appears to currently be at normal baseline status. No modifying or alleviating factors. No other complaints at this time. History provided by: Patient and relative bushler used: No Patient History Patient Active Problem List Diagnosis Date Noted ??? Hypertensive emergency 05/08/2019 ??? TIA (transient ischemic attack) 05/08/2019 ??? History of noncompliance with medical treatment 05/08/2019 ??? History of colon polyps 11/17/2018 ??? Bladder stones 2017 ??? 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 2017 ??? Chronic GERD 2017 ??? Sensorineural hearing loss, bilateral 05/05/2017 ??? 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 12/27/2016 ??? Benign prostatic hyperplasia with lower urinary tract symptoms 12/26/2016 ??? Essential hypertension 12/26/2016 ??? Kidney stones 12/26/2016 ??? Hyperlipidemia 11/16/2013 Class: Chronic Past Medical History: Diagnosis Date ??? River esophagus ??? Chronic obstructive pulmonary disease (CMS/HCC) [...] Years: 50.00 Pack years: 2.50 Types: Cigarettes Last attempt to quit: 2009 Years since quittin.8 ??? Smokeless tobacco: Never Used Substance Use Topics ??? Alcohol use: No ??? Drug use: No Social History Patient does not qualify to have social determinant information on file (likely too young). Social History Narrative ??? Not on file Review of Systems Review of Systems Constitutional: Negative for fever. HENT: Negative for congestion. Eyes: Negative for redness. Respiratory: Negative for shortness of breath. Cardiovascular: Negative for chest pain. Gastrointestinal: Negative for abdominal pain. Genitourinary: Negative for difficulty urinating. Musculoskeletal: Negative for joint swelling. Skin: Negative for rash. Neurological: Negative for headaches. Psychiatric/Behavioral: Negative for agitation. Physical Exam ED Triage Vitals Temp Pulse Resp BP SpO2 05/08/19 1340 05/07/19 2340 05/07/19 2340 05/07/19 2340 05/07/19 2340 36.4 ??C (97.6 ??F) 80 25 (!) 210/125 97 % Temp src Heart Rate Source Patient Position BP Location FiO2 (%) 05/08/19 1340 05/08/19 1340 05/08/19 0100 05/08/19 0100 -- Oral Monitor Lying Left arm Physical Exam Vitals signs and nursing note reviewed. Constitutional: General: He is not in acute distress. Appearance: He is well-developed. HENT: Head: Normocephalic and atraumatic. Right Ear: No drainage. Left Ear: No drainage. Nose: No rhinorrhea. Eyes: Conjunctiva/sclera: Conjunctivae normal. Neck: Musculoskeletal: Normal range of motion. Cardiovascular: Rate and Rhythm: Normal rate and regular rhythm. Heart sounds: Normal heart sounds. No murmur. Pulmonary: Effort: Pulmonary effort is normal. No respiratory distress. Breath sounds: Normal breath sounds. No wheezing or rales. Abdominal: General: Bowel sounds are normal. There is no distension. Palpations: Abdomen is soft. Tenderness: There is no tenderness. There is no guarding. Musculoskeletal: Normal range of motion. Skin: General: Skin is warm and dry. Capillary Refill: Capillary refill takes less than 2 seconds. Neurological: Mental Status: He is alert. Cranial Nerves: Cranial nerves are intact. Sensory: No sensory deficit (To light touch). Motor: Motor function is intact. Coordination: Coordination is intact. Comments: Face symmetrical. Psychiatric: Behavior: Behavior normal. Procedures BP 164/68 (BP Location: Right arm) Pulse 80 Temp 36.4 ??C (97.6 ??F) (Temporal) Resp 16 Ht 177.8 cm (5' 10 ) Wt 91.9 kg (202 lb 9.6 oz) SpO2 98% BMI 29.07 kg/m?? Labs Reviewed CBC WITH AUTO DIFFERENTIAL - Abnormal Result Value WBC 7.8 Hgb 19.8 (*) Hct 54.6 (*) Plt 175 MPV 10.0 RBC 5.96 (*) MCV 91.6 MCH 33.2 MCHC 36.3 (*) RDW CV 12.4 RDW SD 41.8 NRBC abs 0.00 Narrative: Potential Stroke Patient LIPID PANEL - Abnormal Cholesterol 166 Triglycerides 170 (*) HDL 38 (*) LDL, calculated 94 Non-HDL Cholesterol 128 Chol/HDL ratio 4 HEMOGLOBIN A1C - Abnormal Hgb A1C 5.8 (*) Estimated Average Glucose 120 POCT GLUCOSE DEVICE - Abnormal Glucose, POC 99 (*) BASIC METABOLIC PANEL Sodium 138 Potassium, pl 4.1 Chloride 99 CO2 27 Anion gap 12 BUN 19 Creatinine 1.05 Glucose 106 Calcium 9.3 Narrative: Potential Stroke patient. PROTIME-INR PT 12.8 INR 1.13 Narrative: Potential stroke patient. APTT aPTT 35.0 Narrative: Potential stroke patient. TROPONIN T Troponin T <0.01 ACETAMINOPHEN LEVEL Acetaminophen <15.0 ETHANOL Ethanol <10 SALICYLATE LEVEL Salicylate <5.0 DIFFERENTIAL AUTO Neutrophil abs 4.8 Imm gran abs 0.0 Lymphocyte abs 1.8 Monocyte abs 0.8 Eosinophil abs 0.3 Basophil abs 0.1 Neutrophil pct 61.4 Imm gran pct 0.5 Lymphocyte pct 22.4 Monocyte pct 9.7 Eosinophil pct 4.2 Basophil pct 1.8 EGFR GFR 71 HEPATIC FUNCTION PANEL Bilirubin, total 0.6 Bilirubin, direct <0.2 Protein, pl 6.9 Albumin 4.4 Alk phos 107 ALT 20 AST 24 POCT GLUCOSE DEVICE VL US CAROTIDS Final Result 1. MILD TO MODERATE STENOSES BILATERALLY DESCRIBED ABOVE. NO DEFINITE SEVERE STENOSIS IDENTIFIED. 2. ANTEGRADE VERTEBRAL FLOW BILATERALLY. Electronically signed by: Rudy Jasso M.D Transthoracic Echo Complete W Doppler/CF Final Result CT Head WO Contrast ED Interpretation No acute bleed. No acute change from prior. Final Result 1. No acute findings. 2. Mild generalized atrophy. 3. Mild to moderate white matter changes suggestive of microangiopathy. 4. Cerebrovascular arteriosclerosis. 5. 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 6. 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 7. Right insular cortex hypodensity also appears old, but more prominent than on 10/15/2016. Preliminary report faxed to Emergency Department by [facility] on 05/08/2019 at 0058 hours. Electronically signed by: Heri Greenberg Jr., M.D. XR Chest 1 Vw Portable ED Interpretation No focal pneumonia. Mild blunting of left costophrenic angle. Final Result 1. No active disease. Electronically signed by: Heri Greenberg Jr., M.D. MRI Brain WO Contrast (Results Pending) MDM MDM Number of Diagnoses or Management Options Diagnosis management comments: 73-year-old gentleman with multiple comorbidities that presents today for transient dysarthria. Differential diagnosis includes stroke versus TIA versus medication air versus other acute pathology. Amount and/or Complexity of Data Reviewed Clinical lab tests: ordered and reviewed Tests in the radiology section of CPT??: ordered and reviewed Tests in the medicine section of CPT??: reviewed and ordered ED Course as of May 08 1943 Time: 05/08 31 Comment: Normal white blood cell count. H&H slightly elevated at 19 54. Basic metabolic panel normal. Ethanol salicylate and Tylenol negative. Troponin negative. Coags normal. By: Wesley Bird MD Time: 05/08 49 Comment: Patient care transferred to Dr. Soto. ??Case and findings, including treatment plan, evaluations, consults, and lab/imaging results were discussed. By: Wesley Bird MD Time: 05/08 135 Comment: BP 168/95 By: Verna Cox MD TIA (transient ischemic attack) This note is prepared by Westley Anderson acting as a scribe for Wesley Bird MD. I electronically signed this note at 7:43 PM on 05/08/2019. I, Wesley Bird MD., have personally performed the services described in the documentation, reviewed the documentation, as recorded by the scribe in my presence, and it accurately and completely records my words and actions. Any errors in translation of speech to the EMR are related to software and not the clinician. Wesley Bird MD 05/08/19 0050 Wesley Bird MD 05/08/19 1943 [employer] * Ratna Fried RN - 05/07/2019 11:36 PM CST Patient and family states that at around 2300 pt started slurring his words and not making sense. They brought him to be checked out. Pt's slurred speech has resolved and patient is alert and oriented to person, place and time. [employer] documented in this encounter Miscellaneous Notes * Plan of Care - Anay Martínez RN - 05/09/2019 12:23 PM CST Goals: Clinical Goals for the Shift: Observations, Complete MRI Order Summary: Patient discharge instructions, medications and follow ups reviewed with patient. Questions answered, understanding verbalized. Problem: Health Behavior: Goal: Understanding of discharge needs will improve Outcome: Adequate for Discharge Problem: Lack of Knowledge: Goal: Knowledge of disease or condition will improve Outcome: Adequate for Discharge Goal: Understanding of discharge needs will improve Outcome: Adequate for Discharge Problem: Physical Regulation: Goal: Complications related to the disease process, condition or treatment will be avoided or minimized Outcome: Adequate for Discharge Problem: Safety: Goal: Will remain free from injury Outcome: Adequate for Discharge [employer] * Plan of Care - Matthew Draper RN - 05/09/2019 5:39 AM CST Goals: Clinical Goals for the Shift: Observations, Complete MRI Order Summary: MRI completed early in the shift. He had some pain getting on the MRI table preventing himfrom getting it done, so I took him some tylenol and he was able to complete it. Q4h Neuros were normal, BP runs high PRN hydralazine given once. Problem: Health Behavior: Goal: Understanding of discharge needs will improve Outcome: Progressing Problem: Lack of Knowledge: Goal: Knowledge of disease or condition will improve Outcome: Progressing Goal: Understanding of discharge needs will improve Outcome: Progressing Problem: Physical Regulation: Goal: Complications related to the disease process, condition or treatment will be avoided or minimized Outcome: Progressing Problem: Safety: Goal: Will remain free from injury Outcome: Progressing [employer] * Plan of Care - Estephanie Jones PT - 05/08/2019 5:26 PM CST Problem: PT Misc Goal: STG - Misc 1 Description Provide PT eval to assess if need for skilled care. Outcome: Adequate for Discharge Pt is up ad lukasz in room. Was Indep 200' x 1 in halls w/o device. No LOB or gait deviations. No skilled PT needed. DC PT. [employer] * Plan of Care - Vahe Fan RN - 05/08/2019 2:39 PM CST Goals: Clinical Goals for the Shift: no neuro deficits Summary: Admitted to unit at 1340, no neuro deficits noted. Ambulating to BR per self, steady gait,no falls. Monitor shows NSR. [employer] * ED Re-evaluation Note - Verna Cox MD - 05/08/2019 12:56 AM CST Patient care assumed from Dr. Bird. Case and findings, including treatment plan, evaluations, consults, and lab/imaging results were discussed. 12:57 AM 05/08/19 Patient presented with 10 minute episode of not making sense at 11:00 PM that hassince then subsided. Has not taken his blood pressure medicine for 4 days. He has multiple risk factors for a stroke. Will bring him in for further testing. 1:09 AM 05/08/19 CT HEAD WO CONTRAST: Impression: 1. There is evidence of a possible small acute subacute infarct involving the right insula. Consider clinical correlation and follow up. 2. There are old left frontal and right basal ganglia lacunar infarcts. 3. Otherwise no acute intracranial process. Diffuse cortical atrophy and chronic deep white matter small vessel disease. 1:12 AM 05/08/[address] Spence, Hospitalist who accepts patient. This note is prepared by Karen Arellano acting as a scribe for Verna Cox . I electronically signed this note at 12:59 AM on 05/08/2019. I, Verna Cox , have personally performed the services described in the documentation, reviewed the documentation, as recorded by the scribe in my presence, and it accurately and completely records my words and actions. Verna Cox MD 05/08/19 0120 [employer] * ED Procedure Note - Wesley Bird MD - 05/08/2019 12:05 AM CSTAssociated Order(s): ECG 12 lead Procedure ECG 12 lead Date/Time: 05/08/2019 12:05 AM Performed by: Wesley Bird MD Authorized by: Wesley Bird MD Previous ECG: Previous ECG: Compared to current Date of previous EC09/28/2016 Similarity: No change Comments: Regular sinus rhythm rate of 69. Occasional PVC. Left axis deviation. Poor R- wave progression. Wesley Bird MD 05/08/19 0006 [employer] documented in this encounter Plan of Treatment Not on file documented as of this encounter Procedures Procedure Name Priority Date/Time Associated Diagnosis Comments MRI BRAIN WO CONTRAST ED 05/08/2019 8:58 PM [employer] US CAROTIDS DUPLEX BILATERAL ED 05/08/2019 3:39 PM [employer] TRANSTHORACIC ECHO (TTE) COMPLETE W DOPPLER/CF W CONTRAST Routine 05/08/2019 2:59 PM [employer] HEMOGLOBIN A1C Routine 05/08/2019 6:48 AM [employer] LIPID PANEL Routine 05/08/2019 6:48 AM S[employer] CT HEAD WO CONTRAST ED 05/08/2019 1 2:22 AM [employer] XR CHEST 1 VIEW ED 05/08/2019 12:07 AM [employer] EGFR STAT 05/07/2019 11:56 PM [employer] DIFFERENTIAL AUTO STAT 05/07/2019 11: 56 PM [employer] CBC WITH AUTO DIFFERENTIAL STAT 05/07/2019 11:56 PM [employer] APTT STAT 05/07/2019 11:56 PM [employer] PROTIME-INR STAT 05/07/2019 11:56 PM [employer] TROPONIN T STAT 05/07/2019 11:56 PM [employer] ETHANOL STAT 05/07/2019 11:56 PM [employer] ACETAMINOPHEN LEVEL STAT 05/07/2019 1 1:56 PM [employer] SALICYLATE LEVEL STAT 05/07/2019 11:5 6 PM [employer] HEPATIC FUNCTION PANEL Add-On 9 11:56 PM [employer] BASIC METABOLIC PANEL STAT 05/07/2019 11:56 PM [employer] POCT GLUCOSE DEVICE Routine 05/07/2019 1 1:54 PM [employer] ECG 12-LEAD STAT 05/07/2019 11:52 PM [employer] documented in this encounter Results * MRI Brain WO Contrast (05/08/2019 8:58 PM [employer]) Anatomical Region Laterality Modality Head and Neck N/A Magnetic Resonan ce 05/08/2019 8:58 PM [employer] Impressions 05/08/2019 9:10 PM [employer] 1. ??NO ACUTE INTRACRANIAL HEMORRHAGE OR INFARCT. 2. ??MODERATE SMALL VESSEL MICROVASCULAR ISCHEMIC DISEASE. 3. 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 Electronically signed by: Jaquan Mcmanus M.D. Narrative 05/08/2019 9:10 PM [employer] MRI BRAIN WO CONTRAST HISTORY: ??5 minute episode of slurred' impaired speech last night. Hypertension. TECHNIQUE: Sagittal single shot T1 and FLAIR; axial single shot T1, FLAIR, T2 and diffusion COMPARISON: Brain CT 05/08/2019; brain MRI 02/04/2015 FINDINGS: There is no acute intracranial hemorrhage, midline shift or mass effect. ??There is mild diffuse cortical atrophy. ??There is a moderate-sized old infarct in the left frontal lobe. ??There is an old small right thalamic and right caudate nucleus infarct. ??There is moderate small vessel microvascular ischemic disease. Procedure Note Jaquan Mcmanus MD - 05/08/2019 MRI BRAIN WO CONTRAST HISTORY: 5 minute episode of slurred' impaired speech last night. Hypertension. TECHNIQUE: Sagittal single shot T1 and FLAIR; axial single shot T1, FLAIR, T2 and diffusion COMPARISON: Brain CT 05/08/2019; brain MRI 02/04/2015 FINDINGS: There is no acute intracranial hemorrhage, midline shift or mass effect. There is mild diffuse cortical atrophy. There is a moderate-sized old infarct in the left frontal lobe. There is an old small right thalamic and right caudate nucleus infarct. There is moderate small vessel microvascular ischemic disease. IMPRESSION: 1. NO ACUTE INTRACRANIAL HEMORRHAGE OR INFARCT. 2. MODERATE SMALL VESSEL MICROVASCULAR ISCHEMIC DISEASE. 3. 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 Electronically signed by: Jaquan Mcmanus M.D. Polina Ashley MD IMG MRI PROCEDURES Final Resu lt * VL US CAROTIDS (05/08/2019 3:39 PM [employer]) Anatomical Region Laterality Modality Vascular Bilateral Ultrasound 05/08/2019 3:43 PM [employer] Impressions 05/08/2019 3:45 PM [employer] 1. ??MILD TO MODERATE STENOSES BILATERALLY DESCRIBED ABOVE. ??NO DEFINITE SEVERE STENOSIS IDENTIFIED. 2. ??ANTEGRADE VERTEBRAL FLOW BILATERALLY. Electronically signed by: Ady Farnsworth 05/08/2019 3:45 PM [employer] US CAROTIDS DUPLEX BILATERAL HISTORY: Personal history of TIA and Cerebral Infarction without Residual Deficits. TECHNIQUE: Color-flow Doppler examination and grayscale examination. COMPARISON: MRA the carotids in 2014. FINDINGS: Mild to moderate plaque is seen bilaterally. ??Measured diameter stenosis distal right common carotid artery is 50%. Measured diameter stenosis right carotid bulb is 31%. ??Measured diameter stenosis proximal right internal carotid artery is 56%. Measured diameter stenosis proximal right external carotid artery is 31%. ??Flow velocities within the right internal prior are not elevated. ??Systolic velocity right common carotid artery somewhat elevated, but the diastolic velocity is not elevated. ??Measured diameter stenosis distal left common carotid artery is 34%. ??Measured diameter stenosis left carotid bulb is 36%. ??Flow velocities left internal carotid artery are not elevated. ??Systolic velocities left common carotid artery is somewhat elevated, but the diastolic velocity is not elevated. ??Antegrade vertebral flow bilaterally. Procedure Note Rudy Jasso MD - 05/08/2019 US CAROTIDS DUPLEX BILATERAL HISTORY: Personal history of TIA and Cerebral Infarction without Residual Deficits. TECHNIQUE: Color-flow Doppler examination and grayscale examination. COMPARISON: MRA the carotids in 2014. FINDINGS: Mild to moderate plaque is seen bilaterally. Measured diameter stenosis distal right common carotid artery is 50%. Measured diameter stenosis right carotid bulb is 31%. Measured diameter stenosis proximal right internal carotid artery is 56%. Measured diameter stenosis proximal right external carotid artery is 31%. Flow velocities within the right internal prior are not elevated. Systolic velocity right common carotid artery somewhat elevated, but the diastolic velocity is not elevated. Measured diameter stenosis distal left common carotid artery is 34%. Measured diameter stenosis left carotid bulb is 36%. Flow velocities left internal carotid artery are not elevated. Systolic velocities left common carotid artery is somewhat elevated, but the diastolic velocity is not elevated. Antegrade vertebral flow bilaterally. IMPRESSION: 1. MILD TO MODERATE STENOSES BILATERALLY DESCRIBED ABOVE. NO DEFINITE SEVERE STENOSIS IDENTIFIED. 2. ANTEGRADE VERTEBRAL FLOW BILATERALLY. 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 Indications: Transient Ischemic Attack. Measurements: 2D/M Mode Doppler Measurement Value Normal Range Measurement Value Normal Range EF Teich MM 40.9 [ 55.0 - 70.0 ] percent GWENDOLYN Vmax 2.91 [ 2.00 - 4.00 ] cm2 LVIDd MM 4.77 [ 4.20 - 5.90 ] cm AV Mean PG 2 [ 2 - 4 ] mmHg LVIDs MM 3.82 [ 2.30 - 3.90 ] cm AV Peak Miguel A 1.08 [ 1.00 - 1.70 ] m/s LVPWd MM 1.78 [ 0.60 - 1.00 ] cm AV VTI 24.73 cm IVSd MM 1.43 [ 0.60 - 0.90 ] cm LVOT Diam 2.02 [ 1.70 - 2.10 ] cm LA Dimension MM 3.82 [ 3.00 - 4.00 ] cm LVOT Peak Miguel A 0.93 [ 0.70 - 1.10 ] m/s AoR Diam MM 3.21 [ 2.60 - 3.70 ] cm LVOT VTI 21.35 [ 20.00 - 30.00 ] cm ACS MM 1.78 [ 1.50 - 2.60 ] cm MV E Peak Miguel A 0.68 [ 0.60 - 1.30 ] m/s MV A Peak Miguel A 1.24 [ 1.00 - 1.20 ] m/s MV Mean PG 3 [ <= 5 ] mmHg MV PHT 48 [ 20 - 100 ] msec MVA 4.60 MV Decel Time 166 [ 104 - 258 ] msec PV Peak Miguel A 0.83 [ 0.40 - 0.80 ] m/s TR Peak Miguel A 2.69 [ 1.00 - 2.80 ] m/s TR Peak PG 29 mmHg RVSP 39.00 [ 10.00 - 36.00 ] mmHg E' 0.05 E/E' 13.62 PA Pressure 29.00 [ 10.00 - 36.00 ] mmHg Findings: Atrial Septum: Normal atrial septum. Left Ventricle: Normal left ventricular systolic function with no focal wall motion abnormalities. Normal left ventricular size. Normal left ventricular wall thickness. Impaired diastolic relaxation Grade I. Ejection fraction is visually estimated at 65-70 %. Left Atrium: The left atrium is normal in size. Right Ventricle: Normal right ventricular size. Normal right ventricular systolic function. Right Atrium: The right atrium is normal in size. Aortic Valve: Normal structure of the aortic valve. Mitral Valve: No mitral valve regurgitation is seen. Pulmonic Valve: Normal structure of the pulmonic valve. Tricuspid Valve: Right Ventricular Systolic Pressure could not be estimated due to inadequate visualization of TR jet. Pericardium: Normal pericardium with no significant pericardial effusion. Aorta: Sinus of Valsalva is normal. IVC: Normal size and normal respiratory collapse consistent with normal right atrial pressure (<5 mmHg). Pulmonary Artery: Normal pulmonary artery size. Conclusions: Normal left ventricular systolic function with no focal wall motion abnormalities. Normal left ventricular size. Normal left ventricular wall thickness. Impaired diastolic relaxation Grade I. Ejection fraction is visually estimated at 65-70 %. Right Ventricular Systolic Pressure could not be estimated due to inadequate visualization of TR jet. Technically difficult study with limited views. 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 Indications: Transient Ischemic Attack. Measurements: 2D/M Mode Doppler Measurement Value Normal Range Measurement Value Normal Range EF Teich MM 40.9 [ 55.0 - 70.0 ] percent GWENDOLYN Vmax 2.91 [ 2.00 - 4.00 ]cm2 LVIDd MM 4.77 [ 4.20 - 5.90 ] cm AV Mean PG 2 [ 2 - 4 ] mmHg LVIDs MM 3.82 [ 2.30 - 3.90 ] cm AV Peak Miguel A 1.08 [ 1.00 - 1.70 ] m/s LVPWd MM 1.78 [ 0.60 - 1.00 ] cm AV VTI 24.73 cm IVSd MM 1.43 [ 0.60 - 0.90 ] cm LVOT Diam 2.02 [ 1.70 - 2.10 ] cm LA Dimension MM 3.82 [ 3.00 - 4.00 ] cm LVOT Peak Miguel A 0.93 [ 0.70 - 1.10 ]m/s AoR Diam MM 3.21 [ 2.60 - 3.70 ] cm LVOT VTI 21.35 [ 20.00 - 30.00 ] cm ACS MM 1.78 [ 1.50 - 2.60 ] cm MV E Peak Miguel A 0.68 [ 0.60 - 1.30 ] m/s MV A Peak Miguel A 1.24 [ 1.00 - 1.20 ] m/s MV Mean PG 3 [ <= 5 ] mmHg MV PHT 48 [ 20 - 100 ] msec MVA 4.60 MV Decel Time 166 [ 104 - 258 ] msec PV Peak Miguel A 0.83 [ 0.40 - 0.80 ] m/s TR Peak Miguel A 2.69 [ 1.00 - 2.80 ] m/s TR Peak PG 29 mmHg RVSP 39.00 [ 10.00 - 36.00 ] mmHg E' 0.05 E/E' 13.62 PA Pressure 29.00 [ 10.00 - 36.00 ] mmHg Findings: Atrial Septum: Normal atrial septum. Left Ventricle: Normal left ventricular systolic function with no focal wall motionabnormalities. Normal left ventricular size. Normal left ventricular wall thickness. Impaireddiastolic relaxation Grade I. Ejection fraction is visually estimated at 65-70 %. Left Atrium: The left atrium is normal in size. Right Ventricle: Normal right ventricular size. Normal right ventricular systolicfunction. Right Atrium: The right atrium is normal in size. Aortic Valve: Normal structure of the aortic valve. Mitral Valve: No mitral valve regurgitation is seen. Pulmonic Valve: Normal structure of the pulmonic valve. Tricuspid Valve: Right Ventricular Systolic Pressure could not be estimated due toinadequate visualization of TR jet. Pericardium: Normal pericardium with no significant pericardial effusion. Aorta: Sinus of Valsalva is normal. IVC: Normal size and normal respiratory collapse consistent with normal rightatrial pressure (<5 mmHg). Pulmonary Artery: Normal pulmonary artery size. Conclusions: Normal left ventricular systolic function with no focal wall motionabnormalities. Normal left ventricular size. Normal left ventricular wall thickness. Impaireddiastolic relaxation Grade I. Ejection fraction is visually estimated at 65-70 %. Right Ventricular Systolic Pressure could not be estimated due toinadequate visualization of TR jet. Technically difficult study with limited views. Electronically Signed By: Dr Gadiel Traore 2019-05-08 15:32:57 SCREW MACHINE ADJUSTER AUTOMATIC us Polina Ashley MD CV ECHO PROCEDURES Final Resu lt * (ABNORMAL) Hemoglobin A1c (05/08/2019 6:48 AM SCREW MACHINE ADJUSTER AUTOMATIC) Hgb A1C 5.8(H) 4.0 - 5.6 % [facility] ([place]) Estimated Average Glucose 120 mg/dL [facility] ([place]) Comment: The ADA recommends reporting an estimated Average Glucose (eAG) with all Hemoglobin A1c results using the equation derived from a study of 507 normal and diabetic adults. ??Minority populations were underrepresented and children were not included. ?? (Diabetes Care 31:5524-8850, 2008). ??The eAG is not equivalent to a fasting glucose. Blood specimen (specimen) 05/08/2019 6:48 AM SCREW MACHINE ADJUSTER AUTOMATIC 05/08/2019 7:16 AM SCREW MACHINE ADJUSTER AUTOMATIC us Verna Cox MD LAB BLOOD ORDERABLES Final R esult [facility] ([place]) 1 [facility] [place] [address] * (ABNORMAL) Lipid panel (05/08/2019 6:48 AM SCREW MACHINE ADJUSTER AUTOMATIC) Cholesterol 166 30 - 199 mg/dL [facility] ([place]) [...] Data was last revised on 2018. Triglycerides 170(H) <=149 mg/dL [facility] ([place]) Comment: Interpretive [...] Data was last revised on 2018. HDL 38(L) >=40 mg/dL [facility] ([place]) Comment: Interpretive [...] was last revised on 2018. LDL, calculated 94 <=129 mg/dL [facility] ([place]) Comment: Interpretive [...] was last revised on 2018. Non-HDL Cholesterol 128 mg/dL [facility] ([place]) Comment: Interpretive Data Ages < or = [...] 2018. Chol/HDL ratio 4 [facility] ([place]) Blood specimen (specimen) 05/08/2019 6:48 AM SCREW MACHINE ADJUSTER AUTOMATIC 05/08/2019 7:16 AM SCREW MACHINE ADJUSTER AUTOMATIC us Verna Cox MD LAB BLOOD ORDERABLES Final R esult [facility] ([place]) 1 [facility] [place] [address] * CT Head WO Contrast (05/08/2019 12:22 AM SCREW MACHINE ADJUSTER AUTOMATIC) Anatomical Region Laterality Modality Head and Neck N/A Computed Tomogra phy 05/08/2019 6:50 AM SCREW MACHINE ADJUSTER AUTOMATIC Impressions 05/08/2019 6:59 AM SCREW MACHINE ADJUSTER AUTOMATIC 1. No acute findings. 2. Mild generalized atrophy. 3. Mild to moderate white matter changes suggestive of microangiopathy. 4. Cerebrovascular arteriosclerosis. 5. 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 6. 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 7. ??Right insular cortex hypodensity also appears old, but more prominent than on 10/15/2016. Preliminary report faxed to Emergency Department by [facility] on 05/08/2019 at 0058 hours. Electronically signed by: Heri Greenberg Jr., M.D. Narrative 05/08/2019 6:59 AM SCREW MACHINE ADJUSTER AUTOMATIC PROCEDURE: CT HEAD WO CONTRAST HISTORY: concern for TIA. ??Five-minute episode of slurred and impaired speech while sitting at table talking with son. COMPARISON: CT head without contrast on 10/15/2016. ??MRI brain on 12/17/2014. TECHNIQUE: Contiguous noncontrast axial scans from base of skull to vertex. FINDINGS: Mild generalized prominence of ventricles, basal cisterns and cortical sulci bilaterally is demonstrated. ??Mild to moderate hypodensity of periventricular to subcortical white matter is seen bilaterally. ??Old left frontal lobe infarction with encephalomalacia is similar to previous exam. ??Right thalamic lacunar infarct is a small right head of caudate nucleus lacunar infarct are old. ??Mild hypodensity in the right insular cortex is old, but little more prominent than on last exam. ??No mass, hemorrhage, edema or midline shift is seen. ??No abnormal intra-axial or extra-axial fluid collections identified. ??Arteriosclerotic internal carotid and vertebral artery calcifications are present bilaterally at the base of the skull. ??Calvarium and base of skull appear intact. ??Mastoid air cells are well-developed and aerated. ??Paranasal sinuses are clear. Procedure Note Heri Greenberg Jr., MD - 05/08/2019 PROCEDURE: CT HEAD WO CONTRAST HISTORY: concern for TIA. Five-minute episode of slurred and impaired speech while sitting at table talking with son. COMPARISON: CT head without contrast on 10/15/2016. MRI brain on 12/17/2014. TECHNIQUE: Contiguous noncontrast axial scans from base of skull to vertex. FINDINGS: Mild generalized prominence of ventricles, basal cisterns and cortical sulci bilaterally is demonstrated. Mild to moderate hypodensity of periventricular to subcortical white matter is seen bilaterally. Old left frontal lobe infarction with encephalomalacia is similar to previous exam. Right thalamic lacunar infarct is a small right head of caudate nucleus lacunar infarct are old. Mild hypodensity in the right insular cortex is old, but little more prominent than on last exam. No mass, hemorrhage, edema or midline shift is seen. No abnormal intra-axial or extra-axial fluid collections identified. Arteriosclerotic internal carotid and vertebral artery calcifications are present bilaterally at the base of the skull. Calvarium and base of skull appear intact. Mastoid air cells are well-developed and aerated. Paranasal sinuses are clear. IMPRESSION: 1. No acute findings. 2. Mild generalized atrophy. 3. Mild to moderate white matter changes suggestive of microangiopathy. 4. Cerebrovascular arteriosclerosis. 5. 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 6. 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 7. Right insular cortex hypodensity also appears old, but more prominent than on 10/15/2016. Preliminary report faxed to Emergency Department by [facility] on 05/08/2019 at 0058 hours. Electronically signed by: Heri Greenberg Jr., M.D. us Wesley Bird MD IMG CT PROCEDURES Final Resu lt * XR Chest 1 Vw Portable (05/08/2019 12:07 AM SCREW MACHINE ADJUSTER AUTOMATIC) Anatomical Region Laterality Modality Body, Chest N/A Computed Radiogr aphy 05/08/2019 7:13 AM SCREW MACHINE ADJUSTER AUTOMATIC Impressions 05/08/2019 7:15 AM SCREW MACHINE ADJUSTER AUTOMATIC 1. No active disease. Electronically signed by: Heri Greenberg Jr., M.D. Narrative 05/08/2019 7:15 AM SCREW MACHINE ADJUSTER AUTOMATIC XR CHEST 1 VIEW HISTORY: AMS. Patient didn't take any of his medications today. Hypertension; blood pressure very high tonight. ??Patient denies any problems. ??Previous smoker. COMPARISON: CT chest on 02/14/2019. ??PA and lateral chest on 10/23/2016. VIEWS: Erect AP portable chest at 0003 hours FINDINGS: Heart size is normal. ??Pulmonary vascularity is normal . Thoracic aorta is mildly ectatic, sclerotic and tortuous. No infiltrate, mass or pleural effusion is seen. Bony structures are unremarkable. Procedure Note Heri Greenberg Jr., MD - 05/08/2019 XR CHEST 1 VIEW HISTORY: AMS. Patient didn't take any of his medications today. Hypertension; blood pressure very high tonight. Patient denies any problems. Previous smoker. COMPARISON: CT chest on 02/14/2019. PA and lateral chest on 10/23/2016. VIEWS: Erect AP portable chest at 0003 hours FINDINGS: Heart size is normal. Pulmonary vascularity is normal . Thoracic aorta is mildly ectatic, sclerotic and tortuous. No infiltrate, mass or pleural effusion is seen. Bony structures are unremarkable. IMPRESSION: 1. No active disease. Electronically signed by: Heri Greenberg Jr., M.D. eWsley Bird MD IMG XR PROCEDURES Final Resu lt * Hepatic function panel (05/07/2019 11:56 PM SCREW MACHINE ADJUSTER AUTOMATIC) Bilirubin, total 0.6 0.1 - 1.2 mg/dL [facility]) Bilirubin, direct <0.2 0.1 - 0.3 mg/dL [facility] ([place]) Comment: Hemolysis present. ??Results may be affected. Moderately Hemolyzed Specimen Protein, pl 6.9 6.5 - 8.5 g/dL [facility] ([place]) Albumin 4.4 3.5 - 5.0 g/dL [facility] ([place]) Alk phos 107 40 - 130 Units/L [facility] ([place]) ALT 20 7 - 55 Units/L [facility] ([place]) Comment: Hemolysis present. ??Results may be affected. Moderately Hemolyzed Specimen AST 24 10 - 50 Units/L [facility] ([place]) Comment: Hemolysis present. ??Results may be affected. Moderately Hemolyzed Specimen Blood specimen (specimen) 05/07/2019 11:56 PM SCREW MACHINE ADJUSTER AUTOMATIC 05/08/2019 1:04 AM SCREW MACHINE ADJUSTER AUTOMATIC Wesley Bird MD LAB BLOOD ORDERABLES Final R esult [facility] ([place]) 1 [facility] Department [place] [address] * eGFR (05/07/2019 11:56 PM SCREW MACHINE ADJUSTER AUTOMATIC) eGFR 71 mL/min/1.7 3 m2 [facility] ([place]) Comment: Interpretive Data Reference Interval Normal ?>/= 90 mL/min/1.73m2 Mildly decreased* ? 60 - 89 mL/min/1.73m2 Mildly to moderately decreased ?45 - 59 mL/min/1.73m2 Moderately to severely decreased ??30 - 44 mL/min/1.73m2 Severely decreased ?15 - 29 mL/min/1.73m2 Kidney Failure ?< 15 ??mL/min/1.73m2 *Relative to young adult level If -[place] multiply value by 1.16. Estimated glomerular filtration [...] was last reviewed 2016. Blood specimen (specimen) 05/07/2019 11:56 PM SCREW MACHINE ADJUSTER AUTOMATIC 05/08/2019 us Wesley Bird MD LAB BLOOD ORDERABLES Final R esult [facility] ([place]) 1 [facility] Department [place] [address] * Differential, auto (05/07/2019 11:56 PM SCREW MACHINE ADJUSTER AUTOMATIC) Neutrophil abs 4.8 1.7 - 6.5 K/cumm [facility] ([place]) Imm gran abs 0.0 0.0 - 0.1 K/cumm [facility] ([place]) Lymphocyte abs 1.8 0.8 - 3.3 K/cumm [facility] ([place]) Monocyte abs 0.8 0.2 - 0.8 K/cumm [facility] ([place]) Eosinophil abs 0.3 0.0 - 0.5 K/cumm [facility] ([place]) Basophil abs 0.1 0.0 - 0.1 K/cumm [facility] ([place]) Neutrophil pct 61.4 % [facility] ([place]) Comment: Interpretive Data Percent cell count reference ranges are not reported, since discordance with absolute values may lead to misinterpretation of CBC data. Current Interpretive Data was last revised on 2017. Imm gran pct 0.5 % [facility] ([place]) Comment: Interpretive Data Percent cell count reference ranges are not reported, since discordance with absolute values may lead to misinterpretation of CBC data. Current Interpretive Data was last revised on 2017. Lymphocyte pct 22.4 % [facility] ([place]) Comment: Interpretive Data Percent cell count reference ranges are not reported, since discordance with absolute values may lead to misinterpretation of CBC data. Current Interpretive Data was last revised on 2017. Monocyte pct 9.7 % [facility] ([place]) Comment: Interpretive Data [...] last revised on 2017. Blood specimen (specimen) 05/07/2019 11:56 PM SCREW MACHINE ADJUSTER AUTOMATIC 05/08/2019 us Wesley Bird MD LAB BLOOD ORDERABLES Final R esult [facility] ([place]) 1 [facility] Department [place] [address] * Salicylate level (05/07/2019 11:56 PM SCREW MACHINE ADJUSTER AUTOMATIC) Salicylate <5.0 4.0 - 29.0 mg/dL [facility] ([place]) Comment: Interpretive Data Therapeutic range: ??4-29 mg/dl ?? Toxic: ?30-70 mg/dl ? Lethal: ? Greater than 70 mg/dl Current interpretive data was last revised on 2014. Blood specimen (specimen) 05/07/2019 11:56 PM SCREW MACHINE ADJUSTER AUTOMATIC 05/08/2019 Wesley Bird MD LAB BLOOD ORDERABLES Final R esult Performing Organization Address [facility] Co de Phone Number [facility] ([place]) 1 [facility] [employer] [place] [address] * Ethanol (05/07/2019 11:56 PM SCREW MACHINE ADJUSTER AUTOMATIC) Ethanol <10 <=10 mg/dL [facility] ([place]) Comment: Interpretive Data Legal limit of intoxication > or = 80 mg/dL Levels > or = 400 mg/dL are potentially TOXIC. Current interpretive data was last revised on 2018. Blood specimen (specimen) 05/07/2019 11:56 PM SCREW MACHINE ADJUSTER AUTOMATIC 05/08/2019 Wesley Bird MD LAB BLOOD ORDERABLES Final R esult Performing Organization Address [facility] Co de Phone Number [facility] ([place]) 1 [facility] [employer] [place] [address] * Acetaminophen level (05/07/2019 11:56 PM SCREW MACHINE ADJUSTER AUTOMATIC) Acetaminophen <15.0 10.0 - 30.0 mcg/mL [facility] ([place]) Comment: Markedly elevated levels of Acetaminophen and it's metabolites may lead to false low test results for cholesterol, HDL, triglycerides and uric acid with the manufacturers test methods used by our lab. Interpretive Data Toxic if greater than 150 mcg/ml at 4 hrs after ingestion Toxic if greater than 50 mcg/ml at 12 hrs after ingestion Current interpretive data was last revised on 2014 Blood specimen (specimen) 05/07/2019 11:56 PM SCREW MACHINE ADJUSTER AUTOMATIC 05/08/2019 Wesley Bird MD LAB BLOOD ORDERABLES Final R esult [facility] ([place]) 1 [facility] [place] [address] * Troponin T (05/07/2019 11:56 PM SCREW MACHINE ADJUSTER AUTOMATIC) Troponin T <0.01 0.00 - 0.01 ng/mL [facility] ([place]) Comment: Interpretive Data Reference ranges for children <18 years of age have not been established. - > or = 18 years: Serial determinations are recommended for the diagnosis of myocardial infarction. ??Temporal rise and fall are consistent with myocardial infarction when at least one value is above the 99th percentile upper reference limit for troponin assay. ??Journal of the [place] [employer] 2012;60:1581-98. Current Interpretive Data Last Revised Date: 2018. Blood specimen (specimen) 05/07/2019 11:56 PM SCREW MACHINE ADJUSTER AUTOMATIC 05/08/2019 Wesley Bird MD LAB BLOOD ORDERABLES Edited Result - Final Performing Organization Address [facility]/ZIP Co de Phone Number [facility] ([place]) 1 [facility] [place] [place] [address] * aPTT (05/07/2019 11:56 PM SCREW MACHINE ADJUSTER AUTOMATIC) aPTT 35.0 25.0 - 37.0 sec [facility] ([place]) Blood specimen (specimen) (Blood, Venous) 05/07/2019 11:56 PM SCREW MACHINE ADJUSTER AUTOMATIC 05/08/2019 Narrative [facility] ([place]) - 05/08/2019 12:14 AM SCREW MACHINE ADJUSTER AUTOMATIC Potential stroke patient. Wesley Bird MD LAB BLOOD ORDERABLES Final R esult [facility] ([place]) 1 [facility] [place] [address] * Protime-INR (05/07/2019 11:56 PM SCREW MACHINE ADJUSTER AUTOMATIC) Pathologist [facility] PT 12.8 9.5 - 13.0 sec [facility] ([place]) INR 1.13 0.90 - 1.20 [facility] ([place]) Comment: Interpretive Data Recommended ranges for Protime INR: 2.0 - 3.0 Most indications for Warfarin therapy (e.g. Treatment of DVT, PE, bioprosthetic valve replacement, prophylaxis venous thrombosis, atrial fibrillation). 2.5 - 3.5 Mechanical mitral valve or dual mechanical mitral and Aortic valve replacement. Current Interpretive Data was last revised on 2015. Blood specimen (specimen) (Blood, Venous) 05/07/2019 11:56 PM SCREW MACHINE ADJUSTER AUTOMATIC 05/08/2019 Narrative [facility] ([place]) - 05/08/2019 12:11 AM SCREW MACHINE ADJUSTER AUTOMATIC Potential stroke patient. us Wesley Bird MD LAB BLOOD ORDERABLES Final R esult [facility] ([place]) 1 [facility] Department [place] [address] * (ABNORMAL) CBC with auto differential (05/07/2019 11:56 PM SCREW MACHINE ADJUSTER AUTOMATIC) Pathologist [facility] WBC 7.8 3.8 - 9.9 K/cumm [facility] ([place]) Hgb 19.8(H) 13.0 - 17.5 g/dL [facility] ([place]) Hct 54.6(H) 38.9 - 50.3 % [facility] ([place]) Plt 175 150 - 400 K/cumm [facility] ([place]) MPV 10.0 9.1 - 12.3 fL [facility] ([place]) RBC 5.96(H) 4.30 - 5.80 M/cumm [facility] ([place]) MCV 91.6 81.3 - 96.4 fL [facility] ([place]) MCH 33.2 27.1 - 33.3 pg [facility] ([place]) MCHC 36.3(H) 32.3 - 35.7 g/dL [facility] ([place]) RDW CV 12.4 11.1 - 14.9 % [facility] ([place]) RDW SD 41.8 35.7 - 48.1 fL [facility] [place]) NRBC abs 0.00 0.00 - 0.01 K/cumm [facility] ([place]) Blood specimen (specimen) (Blood, Venous) 05/07/2019 11:56 PM SCREW MACHINE ADJUSTER AUTOMATIC 05/08/2019 Narrative [facility] ([place]) - 05/08/2019 12:19 AM SCREW MACHINE ADJUSTER AUTOMATIC Potential Stroke Patient us Wesley Bird MD LAB BLOOD ORDERABLES Final R esult [facility] ([place]) 1 [facility] Department [place] [address] * Basic metabolic panel (05/07/2019 11:56 PM SCREW MACHINE ADJUSTER AUTOMATIC) Sodium 138 135 - 145 mmol/L [facility] ([place]) Potassium, pl 4.1 3.3 - 4.9 mmol/L [facility] ([place]) Comment:Hemolysis present. R esults may be affected. Slightly hemolyzed specimen ok to release result per Marisabel Sexton. Chloride 99 97 - 110 mmol/L [facility] CO2 27 22 - 32 mmol/L [facility]) Anion gap 12 2 - 15 mmol/L [facility] [place]) BUN 19 8 - 25 mg/dL [facility] [place]) Creatinine 1.05 0.80 - 1.30 mg/dL [facility] Glucose 106 70 - 199 mg/dL [facility] ([place]) Comment: Interpretive Data Fasting glucose [...] 2017. Calcium 9.3 8.5 - 10.3 mg/dL [facility] ([place]) Blood specimen (specimen) 05/07/2019 11:56 PM SCREW MACHINE ADJUSTER AUTOMATIC 05/08/2019 Narrative [facility] ([place]) - 05/08/2019 12:30 AM SCREW MACHINE ADJUSTER AUTOMATIC Potential Stroke patient. us Wesley Bird MD LAB BLOOD ORDERABLES Final R esult Performing Organization Address City/[facility]/ZIP Co de Phone Number [facility] ([place]) 1 [facility] [place] [employer] [place] [address] * (ABNORMAL) POCT glucose (05/07/2019 11:54 PM SCREW MACHINE ADJUSTER AUTOMATIC) Glucose, POC 99(H) 71 - 98 mg/dL URVASHIMALINDA CARMICHAEL (BETTY) Blood specimen (specimen) 05/07/2019 11:54 PM SCREW MACHINE ADJUSTER AUTOMATIC 05/07/2019 11:54 PM SCREW MACHINE ADJUSTER AUTOMATIC us Notinfile Unknown LAB POCT ORDERABLES - DEVICE F inal Result Performing Organization Address [facility] Co de Phone Number RUBENS CARMICHAEL ([place]) 1 [facility] [employer] [place] [address] * ECG 12 lead (05/07/2019 11:52 PM SCREW MACHINE ADJUSTER AUTOMATIC) 05/07/2019 11:5 2 PM SCREW MACHINE ADJUSTER AUTOMATIC Narrative [facility] - 05/08/2019 2:36 PM SCREW MACHINE ADJUSTER AUTOMATIC Vent Rate: 69 bpm RR Interval: 860 msec WI Interval: 217 msec QRS Duration: 124 msec QT Interval: 428 msec QTC Interval: 448 msec P-R-T [place]: 14 - -60 - 85 degrees SINUS RHYTHM WITH FIRST DEGREE AV BLOCK WITH OCCASIONAL VENTRICULAR PREMATURE COMPLEXES LEFT ANTERIOR FASCICULAR BLOCK ??[QRS AXIS <= -45, QR IN I, RS IN II] LEFT VENTRICULAR HYPERTROPHY AND ST-T CHANGE ??[VOLTAGE CRITERIA PLUS ST/T ABNORMALITY] Old inferior myocardial infarction ABNORMAL ECG Compared to prior EKG, heart rate has decreased Electronically Signed By: Jason Shaw MD us Wesley Bird MD ECG ORDERABLES Final Result [facility] documented in this encounter Visit Diagnoses Diagnosis TIA (transient ischemic attack)- Primary Unspecified transient cerebral ischemia TIA (transient ischemic attack) Unspecified transient cerebral ischemia Hypertensive emergency 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 Hyperlipidemia Other and unspecified hyperlipidemia Benign prostatic hyperplasia with lower urinary tract symptoms History of noncompliance with medical treatment Personal history of noncompliance with medical treatment, presenting hazards to health 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 documented in this encounter Admitting Diagnoses Diagnosis TIA (transient ischemic attack) Unspecified transient cerebral ischemia documented in this encounter Administered Medications Inactive Administered Medications - up to 3 most recent administrations Medication Order MAR Action Action Date Dose Rate Site acetaminophen (TYLENOL) tablet 650 mg 650 mg, oral, Every 6 hours PRN, 1st line for pain, Starting on Mon05/08/19 at 1946 Given 05/08/2019 7:58 PM SCREW MACHINE ADJUSTER AUTOMATIC 650 mg aspirin enteric coated tablet 81 mg 81 mg, oral, Daily, First dose on Mon05/08/19 at 1500, Do not crush, chew, cut, dissolve, open or otherwise manipulate tablet/capsule. Given 05/09/2019 9:23 AM SCREW MACHINE ADJUSTER AUTOMATIC 81 mg Given 05/08/2019 4:17 PM SCREW MACHINE ADJUSTER AUTOMATIC 81 mg atorvastatin (LIPITOR) tablet 40 mg 40 mg, oral, Daily, First dose on Mon05/08/19 at 1500 Given 05/09/2019 9:23 AM SCREW MACHINE ADJUSTER AUTOMATIC 40 mg Given 05/08/2019 4:17 PM SCREW MACHINE ADJUSTER AUTOMATIC 40 mg cloNIDine (CATAPRES-TTS) 0.1 mg/24 hr patch weekly 1 patch 1 patch, transdermal, Administer over 7 Days, Weekly, First dose on Mon05/08/19 at 1745, Apply overlay over the clonidine patch. Write only on the overlay. Medication Applied 05/08/2019 6:21 PM SCREW MACHINE ADJUSTER AUTOMATIC 1 patch Right Shoulder clopidogrel (PLAVIX) tablet 75 mg 75 mg, oral, Once, On Mon05/08/19 at 0115, For 1 dose Given 05/08/2019 1:39 AM SCREW MACHINE ADJUSTER AUTOMATIC 75 mg clopidogrel (PLAVIX) tablet 75 mg 75 mg, oral, Daily, First dose on Mon05/08/19 at 0155, Indications: cerebral ischemiaIndications:cereb ral ischemia Given 05/09/2019 9:23 AM SCREW MACHINE ADJUSTER AUTOMATIC 75 mg dutasteride (AVODART) capsule 0.5 mg 0.5 mg, oral, Daily with dinner, First dose on Mon05/08/19 at 1800, Indications: benign prostatic hyperplasia with lower urinary tract sxIndications:benign prostatic hyperplasia with lower urinary tract sx Given 05/08/2019 5:23 PM SCREW MACHINE ADJUSTER AUTOMATIC 0.5 mg enoxaparin (LOVENOX) syringe 40 mg 40 mg, subcutaneous, Daily (for enoxaparin), First dose on Mon05/09/19 at 2100, Indications: Deep Vein Thrombosis PreventionIndications:Adrianna p Vein Thrombosis Prevention hydrALAZINE (APRESOLINE) injection 10 mg 10 mg, intravenous, Administer over 2 Minutes, Once, On Mon05/08/19 at 1012, For 1 dose, Indications: hypertensionIndications:h ypertension Given 05/08/2019 10:13 AM SCREW MACHINE ADJUSTER AUTOMATIC 10 mg hydrALAZINE (APRESOLINE) injection 10 mg 10 mg, intravenous, Administer over 2 Minutes, Every 6 hours PRN, high blood pressure, Starting on Mon05/08/19 at 1036, For systolic blood pressure greater than 175, Indications: hypertensionIndications:h ypertension Given 05/08/2019 10:45 PM SCREW MACHINE ADJUSTER AUTOMATIC 10 mg Given 05/08/2019 5:23 PM SCREW MACHINE ADJUSTER AUTOMATIC 10 mg labetalol (NORMODYNE,TRANDATE) injection 10 mg 10 mg, intravenous, at 60 mL/hr, Administer over 2 Minutes, Once, On Mon05/08/19 at 0057, For 1 dose Given 05/08/2019 1:03 AM SCREW MACHINE ADJUSTER AUTOMATIC 10 mg 60 mL/hr metoprolol (LOPRESSOR) tablet 25 mg 25 mg, oral, Once, On Mon05/08/19 at 0136, For 1 dose Given 05/08/2019 1:40 AM SCREW MACHINE ADJUSTER AUTOMATIC 25 mg metoprolol (LOPRESSOR) tablet 25 mg 25 mg, oral, 2 times daily, First dose on Mon05/08/19 at 2100 Given 05/09/2019 9:23 AM SCREW MACHINE ADJUSTER AUTOMATIC 25 mg Given 05/08/2019 9:58 PM SCREW MACHINE ADJUSTER AUTOMATIC [address] (PROTONIX) extended release tablet 40 mg 40 mg, oral, Daily, First dose on Mon05/08/19 at 1500, Do not crush, chew, cut, dissolve, open or otherwise manipulate tablet/capsule., Indications: Treatment of Non-Bleeding Gastric DisorderIndications:Treatment of Non-Bleeding Gastric Disorder Given 05/09/2019 9:23 AM SCREW MACHINE ADJUSTER AUTOMATIC 40 mg Given 05/08/2019 4:17 PM SCREW MACHINE ADJUSTER AUTOMATIC 40 mg perflutren protein-a (OPTISON) 3 mL in sodium chloride 0.9% 8 mL syringe 1-8 mL, intravenous, Once in imaging, contrast, Starting on Mon05/08/19 at 1458, For 1 dose, Intra-Procedure (CV) Given 05/08/2019 2:58 PM SCREW MACHINE ADJUSTER AUTOMATIC 3 mL Left Forearm tamsulosin (FLOMAX) extended release capsule 0.4 mg 0.4 mg, oral, Daily with dinner, First dose on Mon05/08/19 at 1800, Do not crush, chew, cut, dissolve, open or otherwise manipulate tablet/capsule. Given 05/08/2019 5:23 PM SCREW MACHINE ADJUSTER AUTOMATIC 0.4 mg documented in this encounter Discontinued Medications Medication Sig Discontinue Reason Start Date End Da te finasteride (PROSCAR) 5 mg tablet TAKE ONE TABLET BY MOUTH EVERY DAY Stop Taking at Discharge 02/17/2017 05/09/2019 documented as of this encounter Historical Medications * This list may reflect changes made after this encounter. mupirocin (BACTROBAN) 2 % cream Apply topically 3 (three) times a day 0 bisacodyl 5 mg tablet Take by mouth 0 added in this encounter Active and Recently Administered Medications Times are shown in SCREW MACHINE ADJUSTER [employer]OMATIC. Scheduled Medication Order 05/07/2019 05/08/2019 05/09/2019 aspirin enteric coated tablet 81 mg 81 mg, oral, Daily, First dose on Mon05/08/19 at 1500, Do not crush, chew, cut, dissolve, open or otherwise manipulate tablet/capsule. 1617 (Given - Provider: Vahe Fan RN) 0923 (Given - Provider: Anay Martínez RN) atorvastatin (LIPITOR) tablet 40 mg 40 mg, oral, Daily, First dose on Mon05/08/19 at 1500 1617 (Given - Provider: Vahe Fan RN) 0923 (Given - Provider: Anay Martínez, SUE) cloNIDine (CATAPRES-TTS) 0.1 mg/24 hr patch weekly 1 patch 1 patch, transdermal, Administer over 7 Days, Weekly, First dose on Mon05/08/19 at 1745, Apply overlay over the clonidine patch. Write only on the overlay. 1821 (Medication Applied - Provider: Vahe Fan, SUE) 1244 (Due: Medication Removed - Provider: Automatic Discharge Provider - Comment: Time automatically adjusted from order being discontinued) clopidogrel (PLAVIX) tablet 75 mg (COMPLETED) 75 mg, oral, Once, On Mon05/08/19 at 0115, For 1 dose 0139 (Given - Provider: Marisabel Guaman, SUE) clopidogrel (PLAVIX) tablet 75 mg 75 mg, oral, Daily, First dose on Mon05/08/19 at 0155, Indications: cerebral ischemia 0155 (Not Given - Provider: Marisabel Guaman, SUE - Reason: Contraindicated - Comment: recently given already.) 0923 (Given - Provider: Anay Martínez RN) dutasteride (AVODART) capsule 0.5 mg 0.5 mg, oral, Daily with dinner, First dose on Mon05/08/19 at 1800, Indications: benign prostatic hyperplasia with lower urinary tract sx 1723 (Given - Provider: Vahe Fan, SUE) enoxaparin (LOVENOX) syringe 40 mg 40 mg, subcutaneous, Daily (for enoxaparin), First dose on Hyacinth 05/09/19 at 2100, Indications: Deep Vein Thrombosis Prevention hydrALAZINE (APRESOLINE) injection 10 mg (COMPLETED) 10 mg, intravenous, Administer over 2 Minutes, Once, On Mon05/08/19 at 1012, For 1 dose, Indications: hypertension 1011 (Due)1013 (Given - Provider: Janny Mercado, SUE) labetalol (NORMODYNE,TRANDATE) injection 10 mg (COMPLETED) 10 mg, intravenous, at 60 mL/hr, Administer over 2 Minutes, Once, On Mon05/08/19 at 0057, For 1 dose 0103 (Given - Provider: Marisabel Guaman, SUE) metoprolol (LOPRESSOR) tablet 25 mg (COMPLETED) 25 mg, oral, Once, On Mon05/08/19 at 0136, For 1 dose 0140 (Given - Provider: Marisabel Guaman, SUE) metoprolol (LOPRESSOR) tablet 25 mg 25 mg, oral, 2 times daily, First dose on Mon05/08/19 at 2100 2158 (Given - Provider: Matthew Draper, RN) 0923 (Given - Provider: Anay Martínez, SUE) pantoprazole DR (PROTONIX) extended release tablet 40 mg 40 mg, oral, Daily, First dose on Mon05/08/19 at 1500, Do not crush, chew, cut, dissolve, open or otherwise manipulate tablet/capsule., Indications: Treatment of Non-Bleeding Gastric Disorder 1617 (Given - Provider: Vahe Fan RN) 0923 (Given - Provider: Anay Martínez RN) tamsulosin (FLOMAX) extended release capsule 0.4 mg 0.4 mg, oral, Daily with dinner, First dose on Mon05/08/19 at 1800, Do not crush, chew, cut, dissolve, open or otherwise manipulate tablet/capsule. 1723 (Given - Provider: Vahe Fan, SUE) PRN Medication Order 05/07/2019 05/08/2019 05/09/2019 acetaminophen (TYLENOL) tablet 650 mg 650 mg, oral, Every 6 hours PRN, 1st line for pain, Starting on Mon05/08/19 at 1946 1958 (Given - Provider: Matthew Draper, SUE) hydrALAZINE (APRESOLINE) injection 10 mg 10 mg, intravenous, Administer over 2 Minutes, Every 6 hours PRN, high blood pressure, Starting on Mon05/08/19 at 1036, For systolic blood pressure greater than 175, Indications: hypertension 1723 (Given - Provider: Momo Fan RN)2245 (Given - Provider: Matthew Draper, SUE) perflutren protein-a (OPTISON) 3 mL in sodium chloride 0.9% 8 mL syringe (COMPLETED) 1-8 mL, intravenous, Once in imaging, contrast, Starting on Mon05/08/19 at 1458, For 1 dose, Intra-Procedure (CV) 1458 (Given - Provider: Daniel De Los Santos, ESTELA) documented in this encounter Orders Medications Ordered That Reg ht Not Have Been Administered Count Last Ordered Date First Ordered Date enoxaparin (LOVENOX) syringe 40 mg 1 2018 finasteride (PROSCAR) tablet 5 mg 1 019 Lab Orders Without Results Count Last Ordered D ate First Ordered Date POCT GLUCOSE DEVICE 1 05/07/2019 Diet Count Last Ordered Date First Orde red Date ADULT DISCHARGE DIET 1 05/09/2019 Nursing Count Last Ordered Date First Orde red Date DISCHARGE ACTIVITY 1 05/09/2019 DISCHARGE CALL PROVIDER 6 05/09/2019 FOLLOW UP WITH PROVIDER 1 05/09/2019 ACTIVITY 1 05/08/2019 NIH STROKE SCALE 1 05/08/2019 NOTIFY PROVIDER (SPECIFY) 1 05/08/2019 NURSING COMMUNICATION 1 05/08/2019 NURSING SWALLOW ASSESSMENT 1 05/08/[address] PL[address] SEQUENTIAL COMPRESSION DEVICE 2 05/08 CARDIORESPIRATORY MONITOR 1 05/07/2019 WEIGH PATIENT 1 05/07/2019 Consult Count Last Ordered Date First Orde red Date IP CONSULT TO NEUROLOGY 1 05/08/2019 IP CONSULT TO NUTRITION SERVICES 1 05/08/20 19 IV Count Last Ordered Date First Orde red Date SALINE LOCK IV 2 05/07/2019 CORE MEASURES Count Last Ordered Date First Ord ered Date REASON FOR NO VTE PROPHYLAXI S - HOSPITAL ADMISSION - MEDICATIONS 1 05/08/2019 REASON FOR NOT INITIATING IV THROMBOLYTIC 1 05/08/2019 ADT Patient Update Count Last Ordered Date Firs t Ordered Date ED IP DECISION TO ADMIT 1 05/08/2019 documented in this encounter Care Teams Internet Systems Administrator Relationship Specialty Start Date End Date Wesley Em MD PCP - General 09/30/16 12/01/21 Trey Pinedo MD [address] [facility] [facility] [address] [facility] [place] [address] Consulting Physician Neurology 05/09/19 documented as of this encounter
--- OUTSIDE RECORDS SUMMARY | 2024-06-18 18:13 | XMS_ITS | Encounter Summary ---
Author Organization [facility] Care Team Providers Care Chemistry Intern Name Role Phone Wesley Em MD Primary Care Provider [phone] Encounter Details Date Type Department Care Team (Latest Contact Info) Description 10/30/2018 Travel Social History Tobacco Use Types Packs/Day Years Used Date Smoking Tobacco: Former Smokeless Tobacco: Never Alcohol Use Standard Drinks/Week Comments No 0 (1 standard drink = 0.6 oz pur e alcohol) Sex and Gender Information Value Date Recorded Sex Assigned at Not on file Legal Sex Male 6:00 PM PERCHER Gender Identity Not on file Sexual Orientation Straight 01/23/2021 10 :16 PM CDT documented as of this encounter Plan of Treatment Not on file documented as of this encounter Visit Diagnoses Not on filedocumented in this encounter Care Teams Chemistry Intern Relationship Specialty Start Date End Date Wesley Em MD PCP - General 09/30/16 12/01/21 documented as of this encounter
--- OUTSIDE RECORDS SUMMARY | 2024-06-18 18:13 | XMS_ITS | Encounter Summary ---
Author Organization [facility] Address [address] [place] [address] Care Team Providers Care Manager Simulation Name Role Phone Wesley Em MD Primary Care Provider [phone] Reason for Visit * Reason Comments Diabetes Hypertension Hyperlipidemia Encounter Details Date Type Department Care Team (Late st Contact Info) Description 04/23/2018 11:00 AM CDT Office Visit [facility] [address] [id number] Wesley Em MD [address] [place] [id number] Type 2 diabetes mellitus with hyperlipidemia (CMS/HCC) (Primary Dx); BMI 28.0-28.9,adult; Essential hypertension Social History Tobacco Use Types Packs/Day Years Used Date Smoking Tobacco: Former Smokeless Tobacco: Never Alcohol Use Standard Drinks/Week Comments No 0 (1 standard drink = 0.6 oz pur e alcohol) Sex and Gender Information Value Date Recorded Sex Assigned at Not on file Legal Sex Male 6:00 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 PROFESSOR Gender Identity Not on file Sexual Orientation Straight 01/23/2021 10 :16 PM CDT documented as of this encounter Last Filed Vital Signs Vital Sign Reading Time Taken Comments Blood Pressure 130/80 04/23/2018 11:19 AM CDT Pulse 60 04/23/2018 11:19 AM CDT Temperature - - Respiratory Rate 22 04/23/2018 11:19 AM CDT Oxygen Saturation - - Inhaled Oxygen Concentration - - Weight 89.4 kg (197 lb) 04/23/2018 11:19 AM CDT Height 176.5 cm (5' 9.5 ) 04/23/2018 11:19 AM CD T Body Mass Index 28.67 04/23/2018 11:19 AM CDT documented in this encounter Ordered Prescriptions Prescription Sig Dispense Quantity Refills Last Filled Start Date End Date finasteride (PROSCAR) 5 mg tablet Take 1 tablet (5 mg total) by mouth daily. 90 tablet 3 04/23/2018 05/09/2019 documented in this encounter Progress Notes * Martha Sutton MA - 04/23/2018 11:00 AM CDT Subjective/Objective Patient ID: Villa Zuniga is a 72 y.o. male. Chief Complaint Diabetes; Hypertension; and Hyperlipidemia HPI Review of Systems Physical Exam Feet: Right Foot: Monofilament exam normal. Left Foot: Monofilament exam normal. Assessment/Plan Diagnoses and all orders for this visit: BMI 28.0-28.9,adult (Z68.28) Other orders - finasteride (PROSCAR) 5 mg tablet; Take 1 tablet (5 mg total) by mouth daily. Cosigned by Wesley Em MD at 04/23/2018 12:34 PM CDT * Wesley Em MD - 04/23/2018 11:00 AM CDT Subjective/Objective Patient ID: Villa Zuniga is a 72 y.o. male. Chief Complaint Diabetes; Hypertension; and Hyperlipidemia HPI 72-year-old seen today for follow-up diabetes hypertension hyperlipidemia he is following his diet his sugars are doing quite well without medications he is taking his blood pressure medication compliantly is also on his cholesterol medication no muscle pain or muscle weakness no dark-colored urineno trouble swallowing Review of Systems patient is accompanied by his of 52 years Vitals: 04/23/18 1119 BP: 130/80 BP Location: Left arm Patient Position: Sitting Pulse: 60 Resp: 22 Weight: 89.4 kg (197 lb) Height: 176.5 cm (5' 9.5 ) Physical Exam Lungs are clear cardiovascular regular abdomen soft nontender extremities no edema monofilament test is normal Assessment/Plan Diagnoses and all orders for this visit: Type 2 diabetes mellitus with hyperlipidemia (CMS/HCC) (Primary) BMI 28.0-28.9,adult Essential hypertension Other orders - finasteride (PROSCAR) 5 mg tablet; Take 1 tablet (5 mg total) by mouth daily. Patient is doing great looks good lab work looks good all see back in 6 months for his physical. The patient was encouraged get shingles vaccine as soon as possible risk benefits of this vaccine werediscussed with him and his he was also encouraged get a flu shot he declines both of these vaccines states he does not do vaccines he had a tetanus shot about 10 years ago because he states he had to have it to have a surgical procedure done but he will not have it in the future risk benefits of vaccines were discussed with him but he declines he changes mind let us know Side effects, risks, interactions reviewed with patient. [...] mellitus with hyperlipidemia (HCC)- Primary BMI 28.0-28.9,adult Essential hypertension Unspecified essential hypertension documented in this encounter Discontinued Medications Medication Sig Discontinue Reason Start Date End Da te finasteride (PROSCAR) 5 mg tablet Take 5 mg by mouth daily. Reorder 04/23/2018 documented as of this encounter Historical Medications * This list may reflect changes made after this encounter. tamsulosin (FLOMAX) 0.4 mg extended release capsule Take 0.4 mg by mouth daily. 09/21/2018 added in this encounter Care Teams Manager Simulation Relationship Specialty Start Date End Date Wesley Em MD PCP - General 09/30/16 12/01/21 documented as of this encounter
--- OUTSIDE RECORDS SUMMARY | 2024-06-18 18:13 | XMS_ITS | Encounter Summary ---
Author Organization [facility] Healthcare Address [address] [place] [address] Care Team Providers Care Physical Plant Employee Name Role Phone Wesley Em MD Primary Care Provider [phone] Encounter Details Date Type Department Care Team (Late st Contact Info) Description 04/03/2019 6:25 PM CDT Lab [address] [address] Essential hypertension; Mixed hyperlipidemia Social History Tobacco Use Types Packs/Day Years Used Date Smoking Tobacco: Former Smokeless Tobacco: Never Alcohol Use Standard Drinks/Week Comments No 0 (1 standard drink = 0.6 oz pur e alcohol) PHQ-2 Answer Date Recorded PHQ-2 Score 0 02/22/2019 Sex and Gender Information Value Date Recorded Sex Assigned at Not on file Legal Sex Male 6:00 PM MANAGER INTEGRATED Gender Identity Not on file Sexual Orientation Straight 01/23/2021 10 :16 PM CDT documented as of this encounter Plan of Treatment Not on file documented as of this encounter Procedures Procedure Name Priority Date/Time Associated Diagnosis Comments EGFR Routine 04/03/2019 11:43 AM CDT Essential hypertension Mixed hyperlipidemia MAGNESIUM Routine 04/03/2019 11:43 AM CDT Essential hypertension Mixed hyperlipidemia LIPID PANEL Routine 04/03/2019 11:43 AM CDT Essential hypertension Mixed hyperlipidemia BASIC METABOLIC PANEL Routine 04/03/2019 11:43 AM CDT Essential hypertension Mixed hyperlipidemia documented in this encounter Results * eGFR (04/03/2019 11:43 AM CDT) eGFR 51 mL/min/1.7 3 m2 RUBENS GANT Comment: Interpretive Data Reference Interval Normal ?>/= 90 mL/min/1.73m2 Mildly decreased* ? 60 - 89 mL/min/1.73m2 Mildly to moderately decreased ?45 - 59 mL/min/1.73m2 Moderately to severely decreased ??30 - 44 mL/min/1.73m2 Severely decreased ?15 - 29 mL/min/1.73m2 Kidney Failure ?< 15 ??mL/min/1.73m2 *Relative to young adult level If -Dutch multiply value by 1.16. Estimated glomerular filtration [...] was last reviewed 2016. Blood specimen (specimen) 04/03/2019 11:43 AM CDT 04/03/2019 6:31 PM CDT us Wesley Em MD LAB BLOOD ORDERABLES Final Res ult RUBENS GANT [address] [place] [address] * (ABNORMAL) Lipid panel (04/03/2019 11:43 AM [...] on 2018. LDL, calculated 96 <=129 mg/dL CERMALINDA Comment: Interpretive Data Ages < or = [...] ORDERABLES Final Res ult Performing Organization Address [facility] Co de Phone Number RUBENS [address] [place] [address] * Magnesium (04/03/2019 11:43 AM CDT) Magnesium 2.1 1.4 - 2.5 mg/dL [facility] Blood specimen (specimen) 04/03/2019 11:43 AM CDT 04/03/2019 6:29 PM CDT Wesley Em MD LAB BLOOD ORDERABLES Final Res ult Performing Organization Address [facility] de Phone Number [facility] [address] [place] [address] * (ABNORMAL) Basic metabolic panel (04/03/2019 11:43 AM CDT) Sodium 143 135 - 145 mmol/L [facility] Potassium, pl 3.7 3.3 - 4.9 mmol/L [facility] Chloride 102 97 - 110 mmol/L [facility] CO2 30 22 - 32 mmol/L [facility] Anion gap 11 2 - 15 mmol/L [facility] BUN 14 8 - 25 mg/dL [facility] Creatinine 1.37(H) 0.80 - 1.30 mg/dL [facility] Glucose 122 70 - 199 mg/dL [facility] Comment: Interpretive Data Fasting glucose >/= 126 [...] 2017. Calcium 9.8 8.5 - 10.3 mg/dL RUBENS GANT Blood specimen (specimen) 04/03/2019 11:43 AM CDT 04/03/2019 6:29 PM CDT Wesley Em MD LAB BLOOD ORDERABLES Final Res ult Performing Organization Address City/State/[facility] Co de Phone Number RUBENS [address] [place] [address] documented in this encounter Visit Diagnoses Diagnosis Essential hypertension Unspecified essential hypertension Mixed hyperlipidemia documented in this encounter Care Teams Physical Plant Employee Relationship Specialty Start Date End Date Wesley Em MD PCP - General 09/30/16 12/01/21 documented as of this encounter
--- OUTSIDE RECORDS SUMMARY | 2024-06-18 18:13 | XMS_ITS | Encounter Summary ---
Author Organization [facility] Address [address] [facility] [address] [place] [address] Care Team Providers Care Service Bar Cashier Name Role Phone Wesley Em MD Primary Care Provider [phone] Encounter Details Date Type Department Care Team (Late st Contact Info) Description 09/23/2018 Orders Only [facility] [place] [facility] Health Information Management [address] [place] [address] Wesley Em MD [address] [place], [place] [id number] Social History Tobacco Use Types Packs/Day Years Used Date Smoking Tobacco: Former Smokeless Tobacco: Never Alcohol Use Standard Drinks/Week Comments No 0 (1 standard drink = 0.6 oz pur e alcohol) Sex and Gender Information Value Date Recorded Sex Assigned at Not on file Legal Sex Male 6:00 PM NUTRITIONALIST Gender Identity Not on file Sexual Orientation Straight 01/23/2021 10 :16 PM CDT documented as of this encounter Plan of Treatment Not on file documented as of this encounter Procedures Procedure Name Priority Date/Time Associated Diagnosis Comments SCAN - RADIOLOGY/IMAGING Routine 09/24/2018 documented in this encounter Results * SCAN - RADIOLOGY/IMAGING (09/24/2018) Anatomical Region Laterality Modality Other us Historical Provider Final Res ult documented in this encounter Visit Diagnoses Not on filedocumented in this encounter Care Teams Service Bar Cashier Relationship Specialty Start Date End Date Wesley Em MD PCP - General 09/30/16 12/01/21 documented as of this encounter
--- OUTSIDE RECORDS SUMMARY | 2024-06-18 18:13 | XMS_ITS | Encounter Summary ---
Author Organization [facility] Address [address] [facility] [address] [place] [address] Care Team Providers Care Market Director Name Role Phone Wesley Em MD Primary Care Provider [phone] Encounter Details Date Type Department Care Team (Late st Contact Info) Description 09/21/2018 Telephone [facility] [address] [facility] [address] [place] [address] Martha Sutton MA Social History Tobacco Use Types Packs/Day Years Used Date Smoking Tobacco: Former Smokeless Tobacco: Never Alcohol Use Standard Drinks/Week Comments No 0 (1 standard drink = 0.6 oz pur e alcohol) Sex and Gender Information Value Date Recorded Sex Assigned at Not on file Legal Sex Male 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 Gender Identity Not on file Sexual Orientation Straight 01/23/2021 10 :16 PM CDT documented as of this encounter Miscellaneous Notes * Telephone Encounter - Martha Sutton MA - 09/21/2018 3:22 PM CDT Once daily per patient * Telephone Encounter - Martha Sutton MA - 09/21/2018 2:04 PM CDT LMOM How is patient taking his metoprolol once a day or twice a day documented in this encounter Plan of Treatment Not on file documented as of this encounter Visit Diagnoses Not on filedocumented in this encounter Care Teams Market Director Relationship Specialty Start Date End Date Wesley Em MD PCP - General 09/30/16 12/01/21 documented as of this encounter
--- OUTSIDE RECORDS SUMMARY | 2024-06-18 18:13 | XMS_ITS | Encounter Summary ---
Author Organization [facility] Address [address] [facility] [address] [place] [address] Care Team Providers Care Jig Grinder Set Up Operator Name Role Phone Wesley Em MD Primary Care Provider [phone] Encounter Details Date Type Department Care Team (Late st Contact Info) Description 04/09/2018 7:45 AM CDT Lab [facility] [address] [place] [address] [address] [place] [id number] Essential hypertension Social History Tobacco Use Types Packs/Day Years Used Date Smoking Tobacco: Former Smokeless Tobacco: Never Alcohol Use Standard Drinks/Week Comments No 0 (1 standard drink = 0.6 oz pur e alcohol) Sex and Gender Information Value Date Recorded Sex Assigned at Not on file Legal Sex Male 6: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
--- OUTSIDE RECORDS SUMMARY | 2024-06-18 18:13 | XMS_ITS | Encounter Summary ---
Author Organization [facility] Address [address] [facility] [address] [place] [address] Care Team Providers Care Medical Operations Supervisor Name Role Phone Wesley Em MD Primary Care Provider [phone] Reason for Visit * Reason Comments Cough began yesterday Sore Throat Encounter Details Date Type Department Care Team (Latest Contact Info) Description 11/07/2018 2:00 PM CDT Office Visit [facility] [address] [place] [address] [address] [place] [address] Wesley Em MD [address] [place] [address] [address] [place] [address] Tracheobronchitis (Primary Dx); Sore throat Social History Tobacco Use Types Packs/Day Years Used Date Smoking Tobacco: Former Smokeless Tobacco: Never Alcohol Use Standard Drinks/Week Comments No 0 (1 standard drink = 0.6 oz pur e alcohol) Sex and Gender Information Value Date Recorded Sex Assigned at Not on file 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 Gender Identity Not on file Sexual Orientation Straight 01/23/2021 10 :16 PM CDT documented as of this encounter Last Filed Vital Signs Vital Sign Reading Time Taken Comments Blood Pressure 140/110 11/07/2018 2:07 PM CDT Pulse 60 11/07/2018 2:07 PM CDT Temperature - - Respiratory Rate 20 11/07/2018 2:07 PM CDT Oxygen Saturation - - Inhaled Oxygen Concentration - - Weight 87.1 kg (192 lb) 11/07/2018 2:07 PM CDT Height 176.5 cm (5' 9.5 ) 11/07/2018 2:07 PM CDT Body Mass Index 27.95 11/07/2018 2:07 PM CDT documented in this encounter Ordered Prescriptions Prescription Sig Dispense Quantity Refills Last Filled Start Date End Date azithromycin (ZITHROMAX) 250 mg tablet Take 2 tabs (500 mg) by mouth today, than 1 tab (250 mg) daily for 4 days. 6 tablet 11/07/2018 9 predniSONE (DELTASONE) 10 mg tablet Take 5 tabs (50mg) daily for 2 days, then take 4 tabs (40mg) daily for 2 days. Continue to decrease by 1 tab (10mg) every 2 days until gone. 30 tablet 11/07/2018 9 documented in this encounter Progress Notes * Wesley Em MD - 11/07/2018 2:00 PM CDT Subjective/Objective Patient ID: Villa Zuniga is a 73 y.o. male. Chief Complaint Cough (began yesterday) and Sore Throat HPI Patient seen today complaining of a sore throat cough began yesterday hoarse voice states he has had any fever chills no shortness of breath Review of Systems patient states he did not take his medications this morning Vitals: 11/07/18 1407 BP: (!) 140/110 BP Location: Left arm Patient Position: Sitting Pulse: 60 Resp: 20 Weight: 87.1 kg (192 lb) Height: 176.5 cm (5' 9.5 ) Physical Exam The nose those remarkable neck is supple no stridor lungs are clear no rales rhonchi or wheezes Assessment/Plan Diagnoses and all orders for this visit: Tracheobronchitis (Primary) Sore throat - POCT rapid strep A Other orders - predniSONE (DELTASONE) 10 mg tablet; Take 5 tabs (50mg) daily for 2 days, then take 4 tabs (40mg)daily for 2 days. Continue to decrease by 1 tab (10mg) every 2 days until gone. - azithromycin (ZITHROMAX) 250 mg tablet; Take 2 tabs (500 mg) by mouth today, than 1 tab (250 mg) daily for 4 days. These got tracheal bronchitis will put him on a Z-Elpidio and prednisone taper no improvement worseninglet us know Strep test here in the office was negative Side effects, risks, interactions reviewed with patient. [...] Name Priority Date/Time Associated Diagnosis Comments POCT RAPID STREP Routine 11/07/2018 2:17 PM CDT Sore throat documented in this encounter Results * POCT rapid strep A (11/07/2018 2:17 PM CDT) Rapid Strep A, POC Negative Swab 11/07/2018 2:17 PM CDT Wesley Em MD POINT OF CARE TEST ORDERABLES Final Result documented in this encounter Visit Diagnoses Diagnosis Tracheobronchitis- Primary Bronchitis, not specified as acute or chronic Sore throat Acute pharyngitis documented in this encounter Care Teams Medical Operations Supervisor Relationship Specialty Start Date End Date Wesley Em MD PCP - General 09/30/16 12/01/21 documented as of this encounter
--- OUTSIDE RECORDS SUMMARY | 2024-06-18 18:13 | XMS_ITS | Encounter Summary ---
Author Organization [facility] Medical [facility] Address [address] [facility] [address] [place] [address] Care Team Providers Care Draw Fire Operator Name Role Phone Wesley Em MD Primary Care Provider [phone] Encounter Details Date Type Department Care Team (Late st Contact Info) Description 02/15/2019 Telephone [facility] [address] [facility] [address] [place] [address] Wesley Em MD [address] [place] [address] Social History Tobacco Use Types Packs/Day Years Used Date Smoking Tobacco: Former Smokeless Tobacco: Never Alcohol Use Standard Drinks/Week Comments No 0 (1 standard drink = 0.6 oz pur e alcohol) Sex and Gender Information Value Date Recorded Sex Assigned at Not on file 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 * Telephone Encounter - Barbara Musa MA - 02/15/2019 10:41 AM CDT Notes recorded by Wesley Em MD on 02/15/2019 at 10:21 AM CDT Okay to leave a message MRI scan looked okay * Telephone Encounter - Barbara Musa MA - 02/15/2019 10:41 AM CDT ----- Message from Wesley Em MD sent at 02/15/2019 10:22 AM CDT ----- Okay to leave a message x-ray of the abdomen unremarkable documented in this encounter Plan of Treatment Not on file documented as of this encounter Visit Diagnoses Not on filedocumented in this encounter Care Teams Draw Fire Operator Relationship Specialty Start Date End Date Wesley Em MD PCP - General 09/30/16 12/01/21 documented as of this encounter
--- OUTSIDE RECORDS SUMMARY | 2024-06-18 18:13 | XMS_ITS | Encounter Summary ---
Author Organization [facility] Healthcare Address [address] [place] [address] Care Team Providers Care Cell Liner Name Role Phone Wesley Em MD Primary Care Provider [phone] Reason for Referral * Diagnostic Imaging (Routine) - Closed Specialty Diagnoses / Procedures Referred By Contac t Referred To Contact Radiology Diagnoses Personal history of nicotine dependence Tobacco abuse disorder Procedures CT Lung Cancer Screening Wesley Em MD Phone: tel: fax: [address] [phone] Referral ID Status Reason Start Date Expiration Date Visits Re quested Visits Authorized [id number] Closed 10/30/2018 05/10/2020 1 1 Reason for Visit * Diagnostic Imaging (Routine) - Closed Specialty Diagnoses / Procedures Referred By Contdayami villela Referred To Contact Radiology Diagnoses Personal history of nicotine dependence Tobacco abuse disorder Procedures CT Lung Cancer Screening Wesley Em MD Phone: tel: fax: [address] [address] Referral ID Status Reason Start Date Expiration Date Visits Re quested Visits Authorized [id number] Closed 10/30/2018 05/10/2020 1 1 Encounter Details Date Type Department Care Team (Latest Contact Info) Description 02/14/2019 2:17 PM CDT - 02/14/2019 2:36 PM CDT Hospital Encounter 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 Gender Identity Not on file Sexual Orientation Straight 01/23/2021 10 :16 PM CDT documented as of this encounter Medications at Time of Discharge aspirin 81 mg tablet Take one by mouth one time per day 0 0 06/27/2008 atorvastatin (LIPITOR) 40 mg tablet TAKE ONE TABLET BY MOUTH EVERY DAY 90 tablet 3 09/21/2018 9 clopidogrel (PLAVIX) 75 mg tablet TAKE ONE TABLET BY MOUTH EVERY DAY 90 tablet 2 10/11/[address] (NexIUM) 40 mg capsule Take 1 capsule (40 mg total) by mouth daily before breakfast 30 capsule 11 10/30/2018 0 finasteride (PROSCAR) 5 mg tablet TAKE ONE TABLET BY MOUTH EVERY DAY 90 tablet 3 02/17/2017 9 finasteride (PROSCAR) 5 mg tablet Take 1 tablet (5 mg total) by mouth daily. 90 tablet 3 04/23/2018 9 metoprolol (LOPRESSOR) 25 mg tablet Take 25 mg by mouth daily 9 potassium citrate ER (UROCIT-K) 10 mEq (1,080 mg) CR tablet take 1 tablet by oral route 2 times every day 0 0 10/12/2016 2 tamsulosin (FLOMAX) 0.4 mg extended release capsule TAKE ONE CAPSULE BY MOUTH EVERY DAY 90 capsule 3 09/21/2018 9 documented as of this encounter Discharge Disposition Disposition Code Departure Means Destination Discharge to home or self care documented in this encounter Progress Notes * Wesley Em MD - 02/14/2019 4:18 PM CDT Okay to leave a message repeat CT scan [address] scan all looked okay documented in this encounter Plan of Treatment Not on file documented as of this encounter Procedures Procedure Name Priority Date/Time Associated Diagnosis Comments CT LUNG CANCER SCREENING Schedule Routine, Read Routine (OP Routine) 02/14/2019 2:50 PM CDT Personal history of nicotine dependence Tobacco abuse disorder documented in this encounter Results * CT Lung Cancer Screening (02/14/2019 2:50 PM CDT) Anatomical Region Laterality Modality Chest N/A Computed Tomogra phy 02/14/2019 3:01 PM CDT Impressions 02/14/2019 3:24 PM CDT Negative, category 1 per lung-RADS. ??Continue annual screening with low dose CT in 12 months. Tortuous atherosclerotic aorta with moderate three-vessel coronary artery calcification. Electronically signed by: Verna Santos M.D. Narrative 02/14/2019 3:24 PM CDT EXAM: CT LUNG CANCER SCREENING: DATE: 02/14/2019 2:30 PM CLINICAL HISTORY: Trauma smoker quit 10 years ago. ??History of 51 pack year smoking history. TECHNIQUE: Computed tomographic images of the chest were obtained in the axial plane without the administration of contrast using low-dose lung cancer screening protocol. Coronal and sagittal reformatted images were performed. COMPARISON CT chest lung cancer screening 10/11/2017. Findings: The heart size is normal.There is no pericardial effusion. ??Tortuous mildly ectatic aorta with multifocal mild calcified plaque in the arch and descending aorta is present with mild involvement of the valve plane. ??There is moderate three-vessel coronary artery calcification. There is no mediastinal lymphadenopathy. The visible portions of the thyroid gland are normal. . No consolidation or effusion noted.. There is no discrete pulmonary nodule. Moderate dextroscoliosis, anterior longitudinal ossification and paravertebral osteophytes are present especially mid thoracic spine.. The visible portions of the upper abdomen are normal. Procedure Note Verna Santos MD - 02/14/2019 EXAM: CT LUNG CANCER SCREENING: DATE: 02/14/2019 2:30 PM CLINICAL HISTORY: Trauma smoker quit 10 years ago. History of 51 pack year smoking history. TECHNIQUE: Computed tomographic images of the chest were obtained in the axial plane without the administration of contrast using low-dose lung cancer screening protocol. Coronal and sagittal reformatted images were performed. COMPARISON CT chest lung cancer screening 10/11/2017. Findings: The heart size is normal.There is no pericardial effusion. Tortuous mildly ectatic aorta with multifocal mild calcified plaque in the arch and descending aorta is present with mild involvement of the valve plane. There is moderate three-vessel coronary artery calcification. There is no mediastinal lymphadenopathy. The visible portions of the thyroid gland are normal. . No consolidation or effusion noted.. There is no discrete pulmonary nodule. Moderate dextroscoliosis, anterior longitudinal ossification and paravertebral osteophytes are present especially mid thoracic spine.. The visible portions of the upper abdomen are normal. IMPRESSION: Negative, category 1 per lung-RADS. Continue annual screening with low dose CT in 12 months. Tortuous atherosclerotic aorta with moderate three-vessel coronary artery calcification. Electronically signed by: Verna Santos M.D. Wesley Em MD IMG CT PROCEDURES Final Result documented in this encounter Visit Diagnoses Diagnosis Personal history of nicotine dependence Tobacco abuse disorder documented in this encounter Care Teams Cell Liner Relationship Specialty Start Date End Date Wesley Em MD PCP - General 09/30/16 12/01/21 documented as of this encounter
--- OUTSIDE RECORDS SUMMARY | 2024-06-18 18:13 | XMS_ITS | Encounter Summary ---
Author Organization [facility] Healthcare Address [address] [place] [address] Care Team Providers Care Linux Unix Engineer Name Role Phone Wesley Em MD Primary Care Provider [phone] Encounter Details Date Type Department Care Team (Late st Contact Info) Description 10/16/2018 4:05 PM CDT Lab [address] [address] BPH with urinary obstruction; Type 2 diabetes mellitus with hyperlipidemia (CMS/HCC); Essential hypertension Social History Tobacco Use Types Packs/Day Years Used Date Smoking Tobacco: Former Smokeless Tobacco: Never Alcohol Use Standard Drinks/Week Comments No 0 (1 standard drink = 0.6 oz pur e alcohol) Sex and Gender Information Value Date Recorded Sex Assigned at Not on file 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 Gender Identity Not on file Sexual Orientation Straight 01/23/2021 10 :16 PM CDT documented as of this encounter Plan of Treatment Not on file documented as of this encounter Procedures Procedure Name Priority Date/Time Associated Diagnosis Comments EGFR Routine 10/16/2018 8:16 AM CDT Type 2 diabetes mellitus with hyperlipidemia (CMS/HCC) Essential hypertension DIFFERENTIAL AUTO Routine 10/16/2018 8:1 6 AM CDT Type 2 diabetes mellitus with hyperlipidemia (CMS/HCC) Essential hypertension URINALYSIS AND REFLEX TO MICROSCOPIC AND CULTURE Routine 10/16/2018 8:16 AM CDT Type 2 diabetes mellitus with hyperlipidemia (CMS/HCC) Essential hypertension CBC WITH AUTO DIFFERENTIAL Routine 10/16/2018 8:16 AM CDT Type 2 diabetes mellitus with hyperlipidemia (CMS/HCC) Essential hypertension URINALYSIS, MICROSCOPIC ONLY Routine 10/16/2018 8:16 AM CDT Type 2 diabetes mellitus with hyperlipidemia (CMS/HCC) Essential hypertension PSA DIAGNOSTIC Routine 10/16/2018 8:16 AM CDT BPH with urinary obstruction LIPID PANEL Routine 10/16/2018 8:16 AM CDT Type 2 diabetes mellitus with hyperlipidemia (CMS/HCC) Essential hypertension COMPREHENSIVE METABOLIC PANEL Routine 10/16/2018 8:16 AM CDT Type 2 diabetes mellitus with hyperlipidemia (CMS/HCC) Essential hypertension documented in this encounter Results * eGFR (10/16/2018 8:16 AM CDT) [facility] eGFR 55 mL/min/1.7 3 m2 [facility] Comment: Interpretive Data Reference Interval Normal ?>/= 90 mL/min/1.73m2 Mildly decreased* ? 60 - 89 mL/min/1.73m2 Mildly to moderately decreased ?45 - 59 mL/min/1.73m2 Moderately to severely decreased ??30 - 44 mL/min/1.73m2 Severely decreased ?15 - 29 mL/min/1.73m2 Kidney Failure ?< 15 ??mL/min/1.73m2 *Relative to young adult level If -Samo[place] multiply value by 1.16. Estimated glomerular filtration [...] was last reviewed 2016. Blood specimen (specimen) 10/16/2018 8:16 AM CDT 10/16/2018 4:14 PM CDT Narrative [facility] - 10/16/2018 4:57 PM CDT Wesley Em MD LAB BLOOD ORDERABLES Final Res ult Performing Organization Address [facility] Co de Phone Number [facility] [address] Department [place] [address] * (ABNORMAL) Urinalysis, microscopic only (10/16/2018 8:16 AM CDT) WBC, ur 0-5 0 - 5 /HPF [facility] RBC, ur 3-5(A) 0 - 2 /HPF [facility] Mucous, ur Present(A) [facility] Hyaline casts, ur 1-5 0 - 10 /LPF [facility] Urine, clean voided 10/16/2018 8:16 AM CDT 10/16/2018 4:14 PM CDT Narrative [facility] - 10/16/2018 4:41 PM CDT Wesley Em MD LAB URINE ORDERABLES Final Res ult Performing Organization Address [facility] Co de Phone Number [facility] [address] Department of Laboratories [place], [place] [id number] * Differential, auto (10/16/2018 8:16 AM CDT) Neutrophil abs 4.1 1.7 - 6.5 K/cumm [facility] Imm gran abs 0.0 0.0 - 0.1 K/cumm [facility] Lymphocyte abs 1.2 0.8 - 3.3 K/cumm [facility] Monocyte abs 0.7 0.2 - 0.8 K/cumm [facility] Eosinophil abs 0.3 0.0 - 0.5 K/cumm [facility] Basophil abs 0.1 0.0 - 0.1 K/cumm [facility] Neutrophil pct 64.3 % [facility] Comment: Interpretive Data Percent cell count reference ranges are not reported, since discordance with absolute values may lead to misinterpretation of CBC data. Current Interpretive Data was last revised on 2017. Imm gran pct 0.3 % [facility] Comment: Interpretive Data Percent cell count reference ranges are not reported, since discordance with absolute values may lead to misinterpretation of CBC data. Current Interpretive Data was last revised on 2017. Lymphocyte pct 19.3 % [facility] Comment: Interpretive Data Percent cell count reference ranges are not reported, since discordance with absolute values may lead to misinterpretation of CBC data. Current Interpretive Data was last revised on 2017. Monocyte pct 10.4 % [facility] Comment: Interpretive Data Percent cell count reference ranges are not reported, since discordance with absolute values may lead to misinterpretation of CBC data. Current Interpretive Data was last revised on 2017. Eosinophil pct 4.0 % [facility] Comment: Interpretive Data Percent cell count reference ranges are not reported, since discordance with absolute values may lead to misinterpretation of CBC data. Current Interpretive Data was last revised on 2017. Basophil pct 1.7 % [facility] Comment: Interpretive Data Percent cell count reference ranges are not reported, since discordance with absolute values may lead to misinterpretation of CBC data. Current Interpretive Data was last revised on 2017. Blood specimen (specimen) 10/16/2018 8:16 AM CDT 10/16/2018 4:14 PM CDT Narrative [facility] - 10/16/2018 5:25 PM CDT us Wesley Em MD LAB BLOOD ORDERABLES Final Res ult [facility] [address] Department [place] [address] * Comprehensive metabolic panel (10/16/2018 8:16 AM CDT) Sodium 142 135 - 145 mmol/L [facility] Potassium, pl 3.8 3.3 - 4.9 mmol/L [facility] Chloride 103 97 - 110 mmol/L [facility] CO2 26 22 - 32 mmol/L [facility] Anion gap 13 2 - 15 mmol/L [facility] BUN 23 8 - 25 mg/dL [facility] Creatinine 1.30 0.80 - 1.30 mg/dL [facility] Glucose 117 70 - 199 mg/dL [facility] Comment: [...] Calcium 9.2 8.5 - 10.3 mg/dL [facility] Bilirubin, total 0.8 0.1 - 1.2 mg/dL [facility] Protein, pl 6.7 6.5 - 8.5 g/dL [facility] Albumin 4.1 3.5 - 5.0 g/dL [facility] Alk phos 108 40 - 130 Units/L [facility] ALT 17 7 - 55 Units/L [facility] AST 19 10 - 50 Units/L [facility] Blood specimen (specimen) 10/16/2018 8:16 AM CDT 10/16/2018 4:14 PM CDT Narrative [facility] - 10/16/2018 4:57 PM CDT us Wesley Em MD LAB BLOOD ORDERABLES Final Res ult [facility] [address] Department [place] [address] * (ABNORMAL) CBC with auto differential (10/16/2018 8:16 AM CDT) Pathologist [facility] WBC 6.4 3.8 - 9.9 K/cumm [facility] Hgb 19.3(H) 13.0 - 17.5 g/dL [facility] Hct 56.8(H) 38.9 - 50.3 % [facility] Plt 165 150 - 400 K/cumm [facility] MPV 11.0 9.1 - 12.3 fL [facility] RBC 5.97(H) 4.30 - 5.80 M/cumm [facility] MCV 95.1 81.3 - 96.4 fL [facility] MCH 32.3 27.1 - 33.3 pg [facility] MCHC 34.0 32.3 - 35.7 g/dL [facility] RDW CV 13.0 11.1 - 14.9 % [facility] RDW SD 45.1 35.7 - 48.1 fL [facility] NRBC abs 0.00 0.00 - 0.01 K/cumm [facility] Blood specimen (specimen) 10/16/2018 8:16 AM CDT 10/16/2018 4:14 PM CDT Narrative [facility] - 10/16/2018 5:25 PM CDT us Wesley Em MD LAB BLOOD ORDERABLES Final Res ult [facility] [address] Department [place] [address] * (ABNORMAL) Urinalysis reflex to microscopic and culture Urine, clean voided (10/16/2018 8:16 AM CDT) Color, ur Yellow Yellow [facility] Clarity, ur Clear Clear [facility] Specific gravity, ur 1.023 1.010 - 1.025 [facility] pH, urine 5.0 [facility] Protein, ur ql 2+(A) Negative [facility] Glucose, ur ql Negative Negative [facility] Ketones, ur Negative Negative [facility] Bilirubin, ur Negative Negative [facility] Blood, ur 1+(A) Negative [facility] Urobilinogen, ur <2.0 <2.0 mg/dL [facility] Nitrite, ur Negative Negative [facility] Leukocyte esterase, ur Negative Negative [facility] Urine, clean voided 10/16/2018 8:16 AM CDT 10/16/2018 4:14 PM CDT Narrative [facility] - 10/16/2018 4:27 PM CDT ?? Urine pH is affected by diet, medications, systemic acid-base disturbances, and renal tubular function. ??pH may affect urinary stone formation. ??For example, urine pH below 6.0 may help reduce the tendency for calcium phosphate stones and pH greater than 6.0 may reduce the tendency for uric acid stone formation. Source: [employer]. Last revised 07-13-2017 us Wesley Em MD LAB MICROBIOLOGY - GENERAL ORD ERABLES Final Result [facility] [address] Department [place] [address] * (ABNORMAL) Lipid panel (10/16/2018 8:16 AM CDT) Cholesterol 159 30 - 199 mg/dL [facility] Comment: [...] Data was last revised on 2018. Triglycerides 158(H) <=149 mg/dL [facility] Comment: Interpretive Data [...] was last revised on 2018. LDL, calculated 92 <=129 mg/dL [facility] Comment: Interpretive Data Ages [...] was last revised on 2018. Non-HDL Cholesterol 124 mg/dL [facility] Comment: Interpretive Data Ages [...] last revised on 2018. Chol/HDL ratio 5 [facility] Blood specimen (specimen) 10/16/2018 8:16 AM CDT 10/16/2018 4:14 PM CDT Narrative [facility] - 10/16/2018 4:57 PM CDT us Wesley Em MD LAB BLOOD ORDERABLES Final Res ult [facility] [address] Department [place] [address] * PSA diagnostic (10/16/2018 8:16 AM CDT) PSA-Total 4.22 <=6.20 ng/mL [facility] Comment: Interpretive Data ?AGE ? SEX ?REFERENCE INTERVAL 0 minutes-150 years ?Female ?None 0 minutes-49 years ? Male ?None ? 50-59 years ? Male ?0-3.90 ? 60-69 years ? Male ?0-5.40 ? 70-79 years ? Male ?0-6.20 ? 80-150 years ?Male ?0-6.20 Current interpretive data last revised 2018. Blood specimen (specimen) 10/16/2018 8:16 AM CDT 10/16/2018 4:14 PM CDT Narrative [facility] - 10/16/2018 4:41 PM CDT us Wesley Em MD LAB BLOOD ORDERABLES Final Res ult [facility] [address] Department of Laboratories [place] [id number] documented in this encounter Visit Diagnoses Diagnosis BPH with urinary obstruction Hypertrophy of prostate with urinary obstruction and other lower urinary tract symptoms (LUTS) Type 2 diabetes mellitus with hyperlipidemia (HCC) Essential hypertension Unspecified essential hypertension documented in this encounter Care Teams Linux Unix Engineer Relationship Specialty Start Date End Date Wesley Em MD PCP - General 09/30/16 12/01/21 documented as of this encounter
--- OUTSIDE RECORDS SUMMARY | 2024-06-18 18:13 | XMS_ITS | Encounter Summary ---
Author Organization [facility] Medical [facility] Address [address] [place] [address] Care Team Providers Care Fabric And Textile Factory Worker Name Role Phone Wesley Em MD Primary Care Provider [phone] Reason for Visit * Reason Comments Medicare Annual Wellness Visit Subsequen t Encounter Details Date Type Department Care Team (Late st Contact Info) Description 10/30/2018 11:30 AM CDT Office Visit [facility] [address] [facility] [address] [place] [address] Wesley Em MD [address] [place] [address] [address] [place] [address] Medicare annual wellness visit, subsequent (Primary Dx); BMI 28.0-28.9,adult; Chronic bilateral low back pain, with sciatica presence unspecified; Essential hypertension Social History Tobacco Use Types Packs/Day Years Used Date Smoking Tobacco: Former Smokeless Tobacco: Never Alcohol Use Standard Drinks/Week Comments No 0 (1 standard drink = 0.6 oz pur e alcohol) Sex and Gender Information Value Date Recorded Sex Assigned at Not on file Legal Sex Male 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 Gender Identity Not on file Sexual Orientation Straight 01/23/2021 10 :16 PM CDT documented as of this encounter Last Filed Vital Signs Vital Sign Reading Time Taken Comments Blood Pressure 128/86 10/30/2018 11:36 AM CDT Pulse 60 10/30/2018 11:36 AM CDT Temperature - - Respiratory Rate 20 10/30/2018 11:36 AM CDT Oxygen Saturation - - Inhaled Oxygen Concentration - - Weight 89.4 kg (197 lb) 10/30/2018 11:36 AM CDT Height 176.5 cm (5' 9.5 ) 10/30/2018 11:36 AM CD T Body Mass Index 28.67 10/30/2018 11:36 AM CDT documented in this encounter Ordered Prescriptions Prescription Sig Dispense Quantity Refills Last Filled Start Date End Date esomeprazole DR (NexIUM) 40 mg capsule Take 1 capsule (40 mg total) by mouth daily before breakfast 30 capsule 11 10/30/2018 0 documented in this encounter Progress Notes * Wesley Em MD - 10/30/2018 11:30 AM CDT Subjective/Objective Patient ID: Villa Zuniga is a 73 y.o. male. Chief Complaint Medicare Annual Wellness Visit Subsequent Back pain history of tobacco abuse HPI 73-year-old gentleman seen today for well examination he recently went to his urologist Dr. Buciohis PSA is 4.22 he is following up as directed has no dysuria states does have some frequency slowing of the stream states he has no history of cancer does have history of kidney stones and history of bladder stones Patient refuses all vaccinations he did have a Tdap in December 2007 but declines any vaccinations now in the future risk benefits of these vaccines such as the flu pneumonia vaccines and the new shingles vaccine discussed with at length he understands importance of tetanus vaccine every 10 years He still declines Patient had a colonoscopy December 2017 total come back in [address] Bahena doc He has been having some left flank pain off and on usually worsened he has has twisting and turningpositions corry over in bed willing over in bed his bending over sometimes have some pain left side he states he was told by his urologist is not due to his kidneys are his bladder prostate. He statesright now today's having no pain Patient has history of hypertension hyperlipidemia coronary disease with stent placement 2012 diabetes controlled with diet exercise longstanding history of tobacco use high risk for lung cancer greater than 30 pack year history history of bilateral total knee surgeries bilateral carpal tunnel release history of BPH with obstruction Patient is with grown children he retired when he was 63 years a from the [employer] he worked there for 40 years Review of Systems Review [...] ideation hematological no bleeding or bruising Vitals: 10/30/18 1136 BP: 128/86 BP Location: Left arm Patient Position: Sitting Pulse: 60 Resp: 20 Weight: 89.4 kg (197 lb) Height: 176.5 cm (5' 9.5 ) Physical Exam HEAD: normocephalic and atraumatic the pupils are [...] spleen there is no bruits or masses Male examination today was not done patient declines states was recently done by his urologist EXTREMITIES: no edema or cyanosis with good pulses throughout full range of motion throughout NEURO : cranial nerves 2-12 were intact muscle strength is 5 5 throughout DTRs are 2/4 throughout toe signs are downgoing gait normal SKIN no suspicious lesions ecchymosis or petechiae Assessment/Plan Diagnoses and all orders for this visit: Medicare annual wellness visit, subsequent (Primary) BMI 28.0-28.9,adult Chronic bilateral low back pain, with sciatica presence unspecified Essential hypertension Other orders - esomeprazole DR (NexIUM) 40 mg capsule; Take 1 capsule (40 mg total) by mouth daily before breakfast Patient does have some reflux will switch him from Zantac to Nexium since Nexium not effective. Blood pressure under good control with current therapy continue same Flank pain appears to be musculoskeletal store some x-rays may need MRI scan of thoracic and lumbarspine seen back in a month apply cornell Vincent Will schedule low-dose CT scan of the chest at [facility] because of his history of tobacco abuse if the x-rays are unremarkable that MRI scan of the LS spine and lower thoracic spine will be obtained rule out radiculopathy. Side effects, risks, interactions reviewed with patient. [...] Diagnosis Medicare annual wellness visit, subsequent- Primary BMI 28.0-28.9,adult Chronic bilateral low back pain, with sciatica presence unspecified Essential hypertension Unspecified essential hypertension documented in this encounter Discontinued Medications Medication Sig Discontinue Reason Start Date End Da te raNITIdine (ZANTAC) 300 mg tablet take 1 tablet by oral route bid 06/17/2016 10/30/2018 documented as of this encounter Care Teams Fabric And Textile Factory Worker Relationship Specialty Start Date End Date Wesley Em MD PCP - General 09/30/16 12/01/21 documented as of this encounter
--- OUTSIDE RECORDS SUMMARY | 2024-06-18 18:13 | XMS_ITS | Encounter Summary ---
Author Organization [facility] Care Team Providers Care Journey Lineman Name Role Phone Wesley Em MD Primary Care Provider [phone] Encounter Details Date Type Department Care Team (Latest Contact Info) Description 10/16/2018 Travel Social History Tobacco Use Types Packs/Day Years Used Date Smoking Tobacco: Former Smokeless Tobacco: Never Alcohol Use Standard Drinks/Week Comments No 0 (1 standard drink = 0.6 oz pur e alcohol) Sex and Gender Information Value Date Recorded Sex Assigned at Not on file Legal Sex Male 6:00 PM EVALUATOR TRANSFER STUDENTS Gender Identity Not on file Sexual Orientation Straight 01/23/2021 10 :16 PM CDT documented as of this encounter Plan of Treatment Not on file documented as of this encounter Visit Diagnoses Not on filedocumented in this encounter Care Teams Journey Lineman Relationship Specialty Start Date End Date Wesley Em MD PCP - General 09/30/16 12/01/21 documented as of this encounter
--- OUTSIDE RECORDS SUMMARY | 2024-06-18 18:13 | XMS_ITS | Encounter Summary ---
Author Organization [facility] Address [address] [place] [address] Care Team Providers Care Geochemical Manager Name Role Phone Wesley Em MD Primary Care Provider [phone] Encounter Details Date Type Department Care Team (Late st Contact Info) Description 02/15/2019 Orders Only [facility] [address] [facility] [address] [place] [id number] Wesley Em MD [address] [place] [address] Cigarette smoker Social History Tobacco Use Types Packs/Day Years Used Date Smoking Tobacco: Former Smokeless Tobacco: Never Alcohol Use Standard Drinks/Week Comments No 0 (1 standard drink = 0.6 oz pur e alcohol) Sex and Gender Information Value Date Recorded Sex Assigned at Not on file Legal Sex Male 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
--- OUTSIDE RECORDS SUMMARY | 2024-06-18 18:13 | XMS_ITS | Encounter Summary ---
Author Organization [facility] Medical [facility] Address [address] [place] [address] Care Team Providers Care Rock Mason Apprentice Name Role Phone Wesley Em MD Primary Care Provider [phone] Encounter Details Date Type Department Care Team (Late st Contact Info) Description 04/01/2019 Telephone [facility] [address] [facility] [address] [place] [address] Martha Sutton MA Social History Tobacco Use Types Packs/Day Years Used Date Smoking Tobacco: Former Smokeless Tobacco: Never Alcohol Use Standard Drinks/Week Comments No 0 (1 standard drink = 0.6 oz pur e alcohol) PHQ-2 Answer Date Recorded PHQ-2 Score 0 02/22/2019 Sex and Gender Information Value Date Recorded Sex Assigned at Not on file Legal Sex Male 6:00 PM MANAGER UTILIZATION REVIEW Gender Identity Not on file Sexual Orientation Straight 01/23/2021 10 :16 PM CDT documented as of this encounter Miscellaneous Notes * Telephone Encounter - Martha Sutton MA - 04/01/2019 2:18 PM CDT No show form in basket for today 04/01/19 documented in this encounter Plan of Treatment Not on file documented as of this encounter Visit Diagnoses Not on filedocumented in this encounter Care Teams Rock Mason Apprentice Relationship Specialty Start Date End Date Wesley Em MD PCP - General 09/30/16 12/01/21 documented as of this encounter
--- OUTSIDE RECORDS SUMMARY | 2024-06-18 18:13 | XMS_ITS | Encounter Summary ---
Author Organization [facility] Address [address] [place] [address] Care Team Providers Care Gambling Floor Supervisor Name Role Phone Wesley Em MD Primary Care Provider [phone] Encounter Details Date Type Department Care Team (Late st Contact Info) Description 10/16/2018 7:15 AM CDT Lab [facility] [address] [place] [address] [address] [place] [phone] Essential hypertension Social History Tobacco Use Types Packs/Day Years Used Date Smoking Tobacco: Former Smokeless Tobacco: Never Alcohol Use Standard Drinks/Week Comments No 0 (1 standard drink = 0.6 oz pur e alcohol) Sex and Gender Information Value Date Recorded Sex Assigned at Not on file Legal Sex Male 6:00 PM RECEIVER 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
--- OUTSIDE RECORDS SUMMARY | 2024-06-18 18:13 | XMS_ITS | Encounter Summary ---
Author Organization [facility] Medical [facility] Address [address] [place] [address] Care Team Providers Care Adjunct Writing Instructor Name Role Phone Wesley Em MD Primary Care Provider [phone] Encounter Details Date Type Department Care Team (Late st Contact Info) Description 04/03/2019 12:00 PM CDT Lab [facility] [address] [place] [address] [address] [place] [phone] Essential hypertension Social History Tobacco Use Types Packs/Day Years Used Date Smoking Tobacco: Former Smokeless Tobacco: Never Alcohol Use Standard Drinks/Week Comments No 0 (1 standard drink = 0.6 oz pur e alcohol) PHQ-2 Answer Date Recorded PHQ-2 Score 0 02/22/2019 Sex and Gender Information Value Date Recorded Sex Assigned at Not on file Legal Sex Male 6:00 PM FLOAT PHLEBOTOMIST Gender Identity Not on file Sexual Orientation Straight 01/23/2021 10 :16 PM CDT documented as of this encounter Plan of Treatment Not on file documented as of this encounter Visit Diagnoses Diagnosis Essential hypertension Unspecified essential hypertension documented in this encounter Care Teams Adjunct Writing Instructor Relationship Specialty Start Date End Date Wesley Em MD PCP - General 09/30/16 12/01/21 documented as of this encounter
--- OUTSIDE RECORDS SUMMARY | 2024-06-18 18:13 | XMS_ITS | Encounter Summary ---
Author Organization [facility] Healthcare Address [address] [place] [address] Care Team Providers Care Tool Liaison Name Role Phone Wesley Em MD Primary Care Provider [phone] Encounter Details Date Type Department Care Team (Late st Contact Info) Description 02/13/2019 10:39 AM CDT Hospital Encounter [facility] INTERIM Simon Bucio MD [address] [facility] [address] [address] Social History Tobacco Use Types Packs/Day Years Used Date Smoking Tobacco: Former Smokeless Tobacco: Never Alcohol Use Standard Drinks/Week Comments No 0 (1 standard drink = 0.6 oz pur e alcohol) Sex and Gender Information Value Date Recorded Sex Assigned at Not on file Legal 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 Gender Identity Not on file Sexual Orientation [...] 09/21/2018 9 documented as of this encounter Progress Notes * Wesley Em MD - 02/13/2019 10:39 AM CDT Okay to leave a message x-ray of the abdomen unremarkable documented in this encounter Plan of Treatment Not on file documented as of this encounter Procedures Procedure Name Priority Date/Time Associated Diagnosis Comments XR ABDOMEN AP 1 VIEW 02/13/2019 10:41 AM CDT documented in this encounter Results * XR Abdomen Ap 1 Vw (02/13/2019 10:41 AM CDT) Anatomical Region Laterality Modality Body, Abdomen N/A Radiographic Jennifer ging 02/15/2019 9:44 AM CDT Narrative 02/15/2019 9:46 AM CDT Patient Name: VILLA ZUNIGA ?Ordering Dr: Simon Bucio MD ?? D.O.B: 1945 ? Exam Date: 02/13/ ?? 1041 ?? Age: 73 ?Sex: Male ? MR#: [id number] ?? Loc: ? RADIOLOGY REPORT ?? Order #[id number] ?? Radiology ? Abdomen 1 View ? Signed ?? EXAM DESCRIPTION: ??Abdomen 1 View ? REASON FOR STUDY: ??Occasional lower abdominal pain since lithotripsy 5 months ?? ago. ? TECHNIQUE: ??Supine radiographic view of the abdomen acquired. ? COMPARISON: ??09/24/[address] examination dated 10/11/2018 ? FINDINGS: ? BOWEL GAS PATTERN: Bowel gas pattern is nonspecific and nonobstructive. ? SOFT TISSUES: No definite right-sided nephrolithiasis. ??There is a E potential ?? punctate calcification projecting over the mid left renal shadow. ??This may ?? reflect the vascular calcifications which were documented on previous CT ?? examination. ? BONES: Thoracic and lumbar spondylosis. ??Osteoarthritic changes at the hips. ? OTHER: There is a calcification in the left hemipelvis, reflecting a ?? phlebolith. ??Atherosclerotic vascular calcifications are also noted. ? IMPRESSION: ? 1. ??Punctate calcification projecting over the left kidney, which may reflect ?? vascular calcifications as demonstrated on prior CT examination. ??No definite ?? calcification overlying the expected position of either urinary tract. ? 2. ??Nonspecific, nonobstructive bowel gas pattern. ? 3. ??If patient's hematuria has persisted, CT IVP would remain recommended for ?? further evaluation. ? THIS IS AN ELECTRONICALLY VERIFIED FINAL REPORT ?? 02/15/2019 9:46 AM - Electronically signed by Ysabel Bauer M.D. ?? Ysabel Bauer M.D. ? TB ?? D: ??02/15/2019 9:46 AM ?? T: ? Report ID: [id number] ?? Reading Location: ??[id number] ? REPORT ELECTRONICALLY SIGNED IN OTHER VENDOR SYSTEM ?? Resulting Agency Comment O Procedure Note Ysabel Bauer MD - 02/15/2019 Patient Name: VILLA ZUNIGA Dr: Simon Bucio MD D.O.B: 1945 Exam Date: 02/13/19 1041 Age: 73 Sex: Male MR#: [id number] Loc: RADIOLOGY REPORT Order #[id number] Radiology Abdomen 1 View Signed EXAM DESCRIPTION: Abdomen 1 View REASON FOR STUDY: Occasional lower abdominal pain since lithotripsy 5months ago. TECHNIQUE: Supine radiographic view of the abdomen acquired. COMPARISON: 09/24/[address] examination dated 10/11/2018 FINDINGS: BOWEL GAS PATTERN: Bowel gas pattern is nonspecific and nonobstructive. SOFT TISSUES: No definite right-sided nephrolithiasis. There is a Epotential punctate calcification projecting over the mid left renal shadow. Thismay reflect the vascular calcifications which were documented on previous CT examination. BONES: Thoracic and lumbar spondylosis. Osteoarthritic changes at thehips. OTHER: There is a calcification in the left hemipelvis, reflecting a phlebolith. Atherosclerotic vascular calcifications are also noted. IMPRESSION: 1. Punctate calcification projecting over the left kidney, which mayreflect vascular calcifications as demonstrated on prior CT examination. Nodefinite calcification overlying the expected position of either urinary tract. 2. Nonspecific, nonobstructive bowel gas pattern. 3. If patient's hematuria has persisted, CT IVP would remain recommendedfor further evaluation. THIS IS AN ELECTRONICALLY VERIFIED FINAL REPORT 02/15/2019 9:46 AM - Electronically signed by Ysabel Bauer M.D. TB T: Report ID: [id number] Reading Location: [id number] REPORT ELECTRONICALLY SIGNED IN OTHER VENDOR SYSTEM Simon Bucio MD IMG XR PROCEDURES Iwona l Result documented in this encounter Visit Diagnoses Not on filedocumented in this encounter Care Teams Tool Liaison Relationship Specialty Start Date End Date eWsley Em MD PCP - General 09/30/16 12/01/21 documented as of this encounter
--- OUTSIDE RECORDS SUMMARY | 2024-06-18 18:13 | XMS_ITS | Encounter Summary ---
Author Organization [facility] Medical Group Address [address] [place] [address] Care Team Providers Care Heating Equipment Installer Name Role Phone Wesley Em MD Primary Care Provider [phone] Encounter Details Date Type Department Care Team (Late st Contact Info) Description 04/03/2019 Telephone [facility] [address] [facility] [address] [place] [address] Wesley Em MD [address] [place] [address] Social History Tobacco Use Types Packs/Day Years Used Date Smoking Tobacco: Former Smokeless Tobacco: Never Alcohol Use Standard Drinks/Week Comments No 0 (1 standard drink = 0.6 oz pur e alcohol) PHQ-2 Answer Date Recorded PHQ-2 Score 0 02/22/2019 Sex and Gender Information Value Date Recorded Sex Assigned at Not on file Legal Sex Male 6:00 PM TRANSFORMATION 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 Wesley Em Refer to- Dr. Gadiel Godoy, Plastic Surgeon [facility] Dx- Suspicious skin lesion removal * Telephone Encounter - Fariba Thompson - 04/03/2019 12:37 PM CDT Wesley em ref pt to [facility] plastic surgeon dr godoy dx: suspicious skin lesion removal . thanks documented in this encounter Plan of Treatment Not on file documented as of this encounter Visit Diagnoses Not on filedocumented in this encounter Care Teams Heating Equipment Installer Relationship Specialty Start Date End Date Wesley Em MD PCP - General 09/30/16 12/01/21 documented as of this encounter
--- OUTSIDE RECORDS SUMMARY | 2024-06-18 18:13 | XMS_ITS | Encounter Summary ---
Author Organization 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
--- OUTSIDE RECORDS SUMMARY | 2024-06-18 18:13 | XMS_ITS | Encounter Summary ---
Author Organization [facility] Medical Group Address [address] [place] [address] Care Team Providers Care Wharf Hand Name Role Phone Wesley Em MD Primary Care Provider [phone] Encounter Details Date Type Department Care Team (Late st Contact Info) Description 09/21/2018 Telephone [place] [facility] [address] 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 * Telephone Encounter - Stella Bucio MA - 09/21/2018 3:54 PM CDT bm * Telephone Encounter - Dayanara Stoll - 09/21/2018 3:43 PM CDT [facility] called to ask if Dr Em wanted the pt to have the Metoprolol (Toprol) ratherthan the Metoprolol (Lopressor) the pt had been on. The Toprol was sent to them today but they say that's not what the pt had been on previously. The pharmacy says they have the pt on record as having taken the Lopressor. Please advise. documented in this encounter Plan of Treatment Not on file documented as of this encounter Visit Diagnoses Not on filedocumented in this encounter Discontinued Medications Medication Sig Discontinue Reason Start Date End Da te metoprolol (LOPRESSOR) 25 mg tablet Take 25 mg by mouth 2 (two) times a day Error 09/21/2018 metoprolol XL (TOPROL-XL) 25 mg 24 hr tablet Take 1 tablet (25 mg total) by mouth daily Error 09/21/2018 09/21/2018 documented as of this encounter Historical Medications * This list may reflect changes made after this encounter. metoprolol (LOPRESSOR) 25 mg tablet Take 25 mg by mouth daily 06/04/2019 metoprolol (LOPRESSOR) 25 mg tablet Take 25 mg by mouth 2 (two) times a day 09/21/2018 added in this encounter Care Teams Wharf Hand Relationship Specialty Start Date End Date Wesley Em MD PCP - General 09/30/16 12/01/21 documented as of this encounter
--- OUTSIDE RECORDS SUMMARY | 2024-06-18 18:13 | XMS_ITS | Encounter Summary ---
Author Organization [facility] Medical Group Address [address] [place] [address] Care Team Providers Care Supervisor Offset Plate Preparation Name Role Phone Wesley Em MD Primary Care Provider [phone] Encounter Details Date Type Department Care Team (Late st Contact Info) Description 01/16/2018 Orders Only [facility] Health Information Management [address] [place] [address] Scanning, Provider Social History Tobacco Use Types Packs/Day Years Used Date Smoking Tobacco: Former Smokeless Tobacco: Never Alcohol Use Standard Drinks/Week Comments No 0 (1 standard drink = 0.6 oz pur e alcohol) Sex and Gender Information Value Date Recorded Sex Assigned at Not on file Legal Sex Male 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 Gender Identity Not on file Sexual Orientation Straight 01/23/2021 10 :16 PM CDT documented as of this encounter Plan of Treatment Not on file documented as of this encounter Procedures Procedure Name Priority Date/Time Associated Diagnosis Comments SCAN - RADIOLOGY/IMAGING 01/16/2018 10:53 AM CDT documented in this encounter Results * SCAN - RADIOLOGY/IMAGING (01/16/2018 10:53 AM CDT) Anatomical Region Laterality Modality Other us Provider Scanning Final Result documented in this encounter Visit Diagnoses Not on filedocumented in this encounter Care Teams Supervisor Offset Plate Preparation Relationship Specialty Start Date End Date Wesley Em MD PCP - General 09/30/16 12/01/21 documented as of this encounter
--- OUTSIDE RECORDS SUMMARY | 2024-06-18 18:13 | XMS_ITS | Encounter Summary ---
Author Organization [facility] Care Team Providers Care Senior Supply Chain Analyst Name Role Phone Wesley Em MD Primary Care Provider [phone] Encounter Details Date Type Department Care Team (Latest Contact Info) Description 05/07/2019 Travel Social History Tobacco Use Types Packs/Day Years Used Date Smoking Tobacco: Former Smokeless Tobacco: Never Alcohol Use Standard Drinks/Week Comments No 0 (1 standard drink = 0.6 oz pur e alcohol) PHQ-2 Answer Date Recorded PHQ-2 Score 0 02/22/2019 Sex and Gender Information Value Date Recorded Sex Assigned at Not on file Legal Sex Male 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
--- OUTSIDE RECORDS SUMMARY | 2024-06-18 18:13 | XMS_ITS | Encounter Summary ---
Author Organization [facility] Medical Group Address [address] [place] [address] Care Team Providers Care Capsule Machine Operator Name Role Phone Wesley Em MD Primary Care Provider [phone] Encounter Details Date Type Department Care Team (Late st Contact Info) Description 10/12/2018 Orders Only [facility] [address] [facility] [address] [place] [id number] Wesley Em MD [address] [place] [address] [address] [place], [place] [id number] Type 2 diabetes mellitus with hyperlipidemia (CMS/HCC) (Primary Dx); Essential hypertension; BPH with urinary obstruction Social History Tobacco Use Types Packs/Day Years Used Date Smoking Tobacco: Former Smokeless Tobacco: Never Alcohol Use Standard Drinks/Week Comments No 0 (1 standard drink = 0.6 oz pur e alcohol) Sex and Gender Information Value Date Recorded Sex Assigned at Not on file 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 Triglycerides 158(H) <=149 mg/dL [facility] Comment: Interpretive Data Ages [...] BLOOD ORDERABLES Final Res ult [facility] [place] [id number] [address] Department of Laboratories [place] [id number] * (ABNORMAL) Urinalysis reflex to microscopic and [...] PM CDT Narrative [facility] - 10/16/2018 4:27 PM CDT ?? Urine pH is affected by diet, medications, systemic acid-base disturbances, and renal tubular function. ??pH may affect urinary stone formation. ??For example, urine pH below 6.0 may help reduce the tendency for calcium phosphate stones and pH greater than 6.0 may reduce the tendency for uric acid stone formation. Source: [facility]. Last revised 07-13-2017 us Wesley Em MD LAB MICROBIOLOGY - GENERAL ORD ERABLES Final Result [facility] [address] [address] Department [place] [address] * (ABNORMAL) CBC with auto differential (10/16/2018 8:16 AM CDT) WBC 6.4 3.8 - 9.9 K/cumm [facility] [...] [facility] - 10/16/2018 5:25 PM CDT Wesley Em MD LAB BLOOD ORDERABLES Final Res [facility] [id number] [address] Department of Laboratories [place] [id number] * Comprehensive metabolic panel (10/16/2018 8:16 AM CDT) Sodium 142 135 - 145 mmol/L [facility] Potassium, pl 3.8 3.3 - 4.9 mmol/L [facility] Chloride 103 97 - 110 mmol/L [facility] CO2 26 22 - 32 mmol/L [facility] Anion gap 13 2 - 15 mmol/L [facility] BUN 23 8 - 25 mg/dL [facility] Creatinine 1.30 0.80 - 1.30 mg/dL [facility] Glucose 117 70 - 199 mg/dL [facility] Comment: Interpretive Data Fasting glucose >/= 126 [...] PM CDT Narrative [facility] - 10/16/2018 4:57 PM CDT Wesley Em MD LAB BLOOD ORDERABLES Final Res ult [facility] [address] [address] Department [place] [address] documented in this encounter Visit Diagnoses Diagnosis Type 2 diabetes mellitus with hyperlipidemia (HCC)- Primary Essential hypertension Unspecified essential hypertension BPH with urinary obstruction Hypertrophy of prostate with urinary obstruction and other lower urinary tract symptoms (LUTS) BPH with urinary obstruction Hypertrophy of prostate with urinary obstruction and other lower urinary tract symptoms (LUTS) Type 2 diabetes mellitus with hyperlipidemia (HCC) Essential hypertension Unspecified essential hypertension documented in this encounter Care Teams Capsule Machine Operator Relationship Specialty Start Date End Date Wesley Em MD PCP - General 09/30/16 12/01/21 documented as of this encounter
--- OUTSIDE RECORDS SUMMARY | 2024-06-18 18:13 | XMS_ITS | Encounter Summary ---
Author Organization 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
--- OUTSIDE RECORDS SUMMARY | 2024-06-18 18:13 | XMS_ITS | Encounter Summary ---
Author Organization [facility] Medical Group Address [address] [place] [address] Care Team Providers Care Paper And Pulp Mill Operator Name Role Phone Wesley Em MD Primary Care Provider [phone] Reason for Visit * Reason Comments tracheobronchitis f/u Encounter Details Date Type Department Care Team (Late st Contact Info) Description 11/29/2018 10:00 AM CDT Office Visit [facility] [address] [facility] [address] [place] [address] Wesley Em MD [address] [place] [address] [address] [place] [address] Essential hypertension (Primary Dx); BMI 28.0-28.9,adult; Mixed hyperlipidemia; Chronic GERD Social History Tobacco Use Types Packs/Day Years Used Date Smoking Tobacco: Former Smokeless Tobacco: Never Alcohol Use Standard Drinks/Week Comments No 0 (1 standard drink = 0.6 oz pur e alcohol) Sex and Gender Information Value Date Recorded Sex Assigned at Not on file 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 Gender Identity Not on file Sexual Orientation Straight 01/23/2021 10 :16 PM CDT documented as of this encounter Last Filed Vital Signs Vital Sign Reading Time Taken Comments Blood Pressure 120/80 11/29/2018 10:09 AM CDT Pulse 64 11/29/2018 10:09 AM CDT Temperature - - Respiratory Rate 22 11/29/2018 10:09 AM CDT Oxygen Saturation - - Inhaled Oxygen Concentration - - Weight 88.5 kg (195 lb) 11/29/2018 10:09 AM CDT Height 176.5 cm (5' 9.5 ) 11/29/2018 10:09 AM CD T Body Mass Index 28.38 11/29/2018 10:09 AM CDT documented in this encounter Progress Notes * Wesley Em MD - 11/29/2018 10:00 AM CDT Subjective/Objective Patient ID: Villa Zuniga is a 73 y.o. male. Chief Complaint tracheobronchitis (f/u) HPI Time seen today for follow-up states his lungs cleared up completely no further cough no fever chills states right now he feels good Review of Systems Vitals: 11/29/18 1009 BP: 120/80 BP Location: Left arm Patient Position: Sitting Pulse: 64 Resp: 22 Weight: 88.5 kg (195 lb) Height: 176.5 cm (5' 9.5 ) Physical Exam The nose those remarkable neck is supple lungs clear cardiovascular regular abdomen soft nontender Assessment/Plan Diagnoses and all orders for this visit: Essential hypertension (Primary) BMI 28.0-28.9,adult Mixed hyperlipidemia Chronic GERD Blood pressure is doing fine continue same bronchitis is resolved reflux is under good control follow-up 4 months lab work a week at a time Side effects, risks, interactions reviewed with patient. Indications for testing discussed. Any further problems to contact us. He was told what to look out for and verbalized understanding. The patient was given the opportunity to have all questions answeredtoday and was in agreement with the plan of care. documented in this encounter Plan of Treatment Not on file documented as of this encounter Visit Diagnoses Diagnosis Essential hypertension- Primary Unspecified essential hypertension BMI 28.0-28.9,adult Mixed hyperlipidemia Chronic GERD documented in this encounter Care Teams Paper And Pulp Mill Operator Relationship Specialty Start Date End Date Wesley Em MD PCP - General 09/30/16 12/01/21 documented as of this encounter
--- OUTSIDE RECORDS SUMMARY | 2024-06-18 18:13 | XMS_ITS | Encounter Summary ---
Author Organization [facility] Healthcare Address [address] [place] [address] Care Team Providers Care Gun Examiner Name Role Phone Wesley Em MD Primary Care Provider [phone] Encounter Details Date Type Department Care Team (Late st Contact Info) Description 09/24/2018 4:02 PM CDT - 09/24/2018 11:59 PM CDT Hospital Encounter [facility] OP INTERIM Simon Bucio MD [facility] [address] [address] Discharge Disposition: Discharge to home or self care Social History Tobacco Use Types Packs/Day Years Used Date Smoking Tobacco: Former Smokeless Tobacco: Never Alcohol Use Standard Drinks/Week Comments No 0 (1 standard drink = 0.6 oz pur e alcohol) Sex and Gender Information Value Date Recorded Sex Assigned at Not on file 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 Gender Identity Not on file Sexual Orientation Straight 01/23/2021 10 :16 PM CDT documented as of this encounter Medications at Time of Discharge aspirin 81 mg tablet Take one by mouth one time per day 0 0 06/27/2008 atorvastatin (LIPITOR) 40 mg tablet TAKE ONE TABLET BY MOUTH EVERY DAY 90 tablet 3 09/21/2018 05/20/2019 clopidogrel (PLAVIX) 75 mg tablet TAKE ONE TABLET BY MOUTH EVERY DAY 90 tablet 2 10/11/2017 05/22/2019 finasteride (PROSCAR) 5 mg tablet TAKE ONE TABLET BY MOUTH EVERY DAY 90 tablet 3 02/17/2017 05/09/2019 finasteride (PROSCAR) 5 mg tablet Take 1 tablet (5 mg total) by mouth daily. 90 tablet 3 04/23/2018 05/09/2019 metoprolol (LOPRESSOR) 25 mg tablet Take 25 mg by mouth daily 06/04/2019 potassium citrate ER (UROCIT-K) 10 mEq (1,080 mg) CR tablet take 1 tablet by oral route 2 times every day 0 0 10/12/2016 10/07/2021 raNITIdine (ZANTAC) 300 mg tablet take 1 tablet by oral route bid 180 3 06/17/2016 10/30/2018 tamsulosin (FLOMAX) 0.4 mg extended release capsule TAKE ONE CAPSULE BY MOUTH EVERY DAY 90 capsule 3 09/21/2018 06/04/2019 documented as of this encounter Discharge Disposition Disposition Code Departure Means Destination Discharge to home or self care documented in this encounter Plan of Treatment Not on file documented as of this encounter Procedures Procedure Name Priority Date/Time Associated Diagnosis Comments XR ABDOMEN AP 1 VIEW Routine 09/24/2018 4:04 PM CDT documented in this encounter Results * XR Abdomen Ap 1 Vw (09/24/2018 4:04 PM CDT) Anatomical Region Laterality Modality Body, Abdomen N/A Radiographic Jennifer ging 09/24/2018 4:04 PM CDT Impressions 09/25/2018 8:34 AM CDT ?? 1.There is concern for small densities overlying both renal shadows, concerning for nephrolithiasis. ??The largest of these, linear, overlying the left renal shadow, 3 mm greatest dimension. 2.No definite focal density overlying the expected courses of the collecting systems. 3.Small densities within the pelvis likely related to phleboliths appear stable and unchanged. 4.Please see above for other details. THIS IS AN ELECTRONICALLY VERIFIED FINAL REPORT 09/25/2018 8:31 AM - Electronically signed by Waed ESPOSITO D: ??09/25/2018 8:31 AM T: Report ID: [id number] Reading Location: ??[id number] [EOD] Narrative 09/25/2018 8:34 AM CDT EXAM DESCRIPTION: ??Abdomen 1 View REASON FOR STUDY: ??Checking for bilateral kidney stones today. ??Left-sided flank WORSENING PAIN WITH NAUSEA/VOMITING X 3 WEEKS, HX OF LITHOTRIPSY, 07/22/18 TECHNIQUE: ??2 AP supine radiographic views of the abdomen acquired. COMPARISON: ??[facility]UB January 11, 2018 and October 04, 2017. FINDINGS: BOWEL GAS PATTERN: The psoas margins appear maintained. For supine images, the bowel gas pattern appears unremarkable. ??Bowel gas predominantly only seen within the colon. SOFT TISSUES: There is at least mild fecal material within the colon predominantly in the area of the hepatic flexure and transverse colon. The right renal shadow is partly obscured by overlying colon and fecal material. There is evidence concerning for small densities overlying the right and left renal shadows. ??The largest on the left side, linear in configuration and approximately 3 mm greatest dimension. No definite evidence of focal density or calcification over the expected courses of the collecting systems. Note of a few densities within the pelvis which appear stable and unchanged and are likely related to phleboliths. BONES: The regional included bones on the exam show [id number] degenerative changes at the dorsal spine and less severe degenerative changes at the hips and otherwise appear maintained and intact. Procedure Note Provider, MD Wilian - 11/18/2020 EXAM DESCRIPTION: Abdomen 1 View REASON FOR STUDY: Checking for bilateral kidney stones today. Left-sided flank WORSENING PAIN WITH NAUSEA/VOMITING X 3 WEEKS, HX OF LITHOTRIPSY,07/22/18 TECHNIQUE: 2 AP supine radiographic views of the abdomen acquired. COMPARISON: KUB January 11, 2018 and October 04, 2017. FINDINGS: BOWEL GAS PATTERN: The psoas margins appear maintained. For supine images, the bowel gas pattern appears unremarkable. Bowel gas predominantly only seen within the colon. SOFT TISSUES: There is at least mild fecal material within the colon predominantly in the area of the hepatic flexure and transverse colon. The right renal shadow is partly obscured by overlying colon and fecal material. There is evidence concerning for small densities overlying the right andleft renal shadows. The largest on the left side, linear in configuration and approximately 3 mm greatest dimension. No definite evidence of focal density or calcification over the expected courses of the collecting systems. Note of a few densities within the pelvis which appear stable andunchanged and are likely related to phleboliths. BONES: The regional included bones on the exam show [id number] degenerative changes at the dorsal spine and less severe degenerativechanges at the hips and otherwise appear maintained and intact. IMPRESSION: 1.There is concern for small densities overlying both renal shadows, concerning for nephrolithiasis. The largest of these, linear, overlyingthe left renal shadow, 3 mm greatest dimension. 2.No definite focal density overlying the expected courses of thecollecting systems. 3.Small densities within the pelvis likely related to phleboliths appear stable and unchanged. 4.Please see above for other details. THIS IS AN ELECTRONICALLY VERIFIED FINAL REPORT 09/25/2018 8:31 AM - Electronically signed by Wade ESPOSITO T: Report ID: [id number] Reading Location: [place] [id number] [EOD] Simon Bucio MD IMG XR PROCEDURES Iwona l Result documented in this encounter Visit Diagnoses Not on filedocumented in this encounter Care Teams Gun Examiner Relationship Specialty Start Date End Date Wesley Em MD PCP - General 09/30/16 12/01/21 documented as of this encounter
--- OUTSIDE RECORDS SUMMARY | 2024-06-18 18:13 | XMS_ITS | Encounter Summary ---
Author Organization [facility] Facility Care Team Providers Care Rock Picker Name Role Phone Wesley Em MD Primary Care Provider [phone] Encounter Details Date Type Department Care Team (Latest Contact Info) Description 04/03/2019 Travel Social History Tobacco Use Types Packs/Day Years Used Date Smoking Tobacco: Former Smokeless Tobacco: Never Alcohol Use Standard Drinks/Week Comments No 0 (1 standard drink = 0.6 oz pur e alcohol) PHQ-2 Answer Date Recorded PHQ-2 Score 0 02/22/2019 Sex and Gender Information Value Date Recorded Sex Assigned at Not on file 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
--- OUTSIDE RECORDS SUMMARY | 2024-06-18 18:13 | XMS_ITS | Encounter Summary ---
Author Organization [facility] Healthcare Address [address] [place] [address] Care Team Providers Care Commercial Print Salesman Name Role Phone Wesley Em MD Primary Care Provider [phone] Encounter Details Date Type Department Care Team (Late st Contact Info) Description 04/09/2018 6:35 PM CDT Lab [address] [address] Essential hypertension; Type 2 diabetes mellitus with hyperlipidemia (CMS/HCC) Social History Tobacco Use Types Packs/Day Years Used Date Smoking Tobacco: Former Smokeless Tobacco: Never Alcohol Use Standard Drinks/Week Comments No 0 (1 standard drink = 0.6 oz pur e alcohol) Sex and Gender Information Value Date Recorded Sex Assigned at Not on file 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 Gender Identity Not on file Sexual Orientation Straight 01/23/2021 10 :16 PM CDT documented as of this encounter Plan of Treatment Not on file documented as of this encounter Procedures Procedure Name Priority Date/Time Associated Diagnosis Comments EGFR Routine 04/09/2018 8:27 AM CDT Essential hypertension Type 2 diabetes mellitus with hyperlipidemia (CMS/HCC) HEMOGLOBIN A1C Routine 04/09/2018 8:27 AM CDT Type 2 diabetes mellitus with hyperlipidemia (CMS/HCC) LIPID PANEL Routine 04/09/2018 8:27 AM CDT Essential hypertension Type 2 diabetes mellitus with hyperlipidemia (CMS/HCC) BASIC METABOLIC PANEL Routine 04/09/2018 8:27 AM CDT Essential hypertension Type 2 diabetes mellitus with hyperlipidemia ([facility]) documented in this encounter Results * eGFR (04/09/2018 8:27 AM CDT) eGFR 63 mL/min/1.7 3 m2 [facility] Comment: Interpretive Data Reference Interval Normal ?>/= 90 mL/min/1.73m2 Mildly decreased* ? 60 - 89 mL/min/1.73m2 Mildly to moderately decreased ?45 - 59 mL/min/1.73m2 Moderately to severely decreased ??30 - 44 mL/min/1.73m2 Severely decreased ?15 - 29 mL/min/1.73m2 Kidney Failure ?< 15 ??mL/min/1.73m2 *Relative to young adult level If -[place] multiply value by 1.16. Estimated glomerular filtration [...] was last reviewed 2016. Blood specimen (specimen) 04/09/2018 8:27 AM CDT 04/09/2018 6:56 PM CDT Narrative [facility] - 04/09/2018 7:19 PM CDT us Wesley Em MD LAB BLOOD ORDERABLES Final Res ult [facility] [address] Department [place] [address] * (ABNORMAL) Lipid panel (04/09/2018 8:27 AM CDT) [facility] Signature Cholesterol 211(H) 30 - 199 mg/dL [facility] Comment: [...] on 2018. HDL 38(L) >=40 mg/dL [facility] Comment: Interpretive Data [...] was last revised on 2018. LDL, calculated 141(H) <=129 mg/dL [facility] Comment: Interpretive Data Ages [...] was last revised on 2018. Non-HDL Cholesterol 173 mg/dL [facility] Comment: Interpretive Data Ages < [...] was last revised on 2018. Chol/HDL ratio 6 [facility] Blood specimen (specimen) 04/09/2018 8:27 AM CDT 04/09/2018 6:56 PM CDT Narrative [facility] - 04/09/2018 7:19 PM CDT Wesley Em MD LAB BLOOD ORDERABLES Final Res ult Performing Organization Address City/[facility]/ZIP Co de Phone Number URVASHIMALINDA [address] [place] [address] * Hemoglobin A1c (04/09/2018 8:27 AM CDT) Hgb A1C 6.0 4.0 - 6.0 % [facility] Comment: Interpretive Data Hemoglobin A1c ADA Interpretive Guidelines ??<7% ?? Glycemia controlled ??>8% ?? Hyperglycemia, additional action recommended Estrada Immunochemical Method Current interpretive data was last revised on 2015 Testing performed by: [facility] [address] Estimated Average Glucose 126 mg/dL [facility] Comment:Testing performed by : [facility], [place] [address] Blood specimen (specimen) 04/09/2018 8:27 AM CDT 04/10/2018 8:17 AM CDT Narrative [facility] - 04/10/2018 12:17 PM CDT Wesley Em MD LAB BLOOD ORDERABLES Final Res ult Performing Organization Address City/[facility] Co de Phone Number URVASHIMALINDA [address] [facility] [place] [address] * Basic metabolic panel (04/09/2018 8:27 AM CDT) Sodium 141 135 - 145 mmol/L [facility] Potassium, pl 3.5 3.5 - 5.1 mmol/L [facility] Chloride 105 100 - 114 mmol/L [facility] CO2 28 22 - 32 mmol/L [facility] Anion gap 12 8 - 16 mmol/L [facility] BUN 11 8 - 24 mg/dL [facility] Creatinine 1.16 0.70 - 1.40 mg/dL [facility] Glucose 117 70 - 199 mg/dL [facility] Comment: Interpretive Data Fasting glucose >/= 126 [...] data was last revised 2017. Calcium 8.6 8.4 - 10.5 mg/dL [facility] Blood specimen (specimen) 04/09/2018 8:27 AM CDT 04/09/2018 6:56 PM CDT Narrative [facility] - 04/09/2018 7:19 PM CDT Wesley Em MD LAB BLOOD ORDERABLES Final Res ult [facility] [address] Department [place] [address] documented in this encounter Visit Diagnoses Diagnosis Essential hypertension Unspecified essential hypertension Type 2 diabetes mellitus with hyperlipidemia (HCC) documented in this encounter Care Teams Commercial Print Salesman Relationship Specialty Start Date End Date Wesley Em MD PCP - General 09/30/16 12/01/21 documented as of this encounter
--- OUTSIDE RECORDS SUMMARY | 2024-06-18 18:13 | XMS_ITS | Encounter Summary ---
Author Organization [facility] Medical Group Address [address] [place] [address] Care Team Providers Care Six Sigma Project Manager Name Role Phone Wesley Em MD Primary Care Provider [phone] Encounter Details Date Type Department Care Team (Late st Contact Info) Description 05/03/2019 Telephone [facility] 2 [facility] [address] [place] [address] Wesley Em MD [address] [place] [address] Social History Tobacco Use Types Packs/Day Years Used Date Smoking Tobacco: Former Smokeless Tobacco: Never Alcohol Use Standard Drinks/Week Comments No 0 (1 standard drink = 0.6 oz pur e alcohol) PHQ-2 Answer Date Recorded PHQ-2 Score 0 02/22/2019 Sex and Gender Information Value Date Recorded Sex Assigned at Not on file 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 He hasn't been contacted by plastic surgeon's office for an appointment yet. He can call Dr. Amy's office directly to schedule an appt. He also wanted to cxl his upcoming appt with JR since he has not seen the plastic surgeon yet--the appt has been cancelled. documented in this encounter Plan of Treatment Not on file documented as of this encounter Visit Diagnoses Not on filedocumented in this encounter Care Teams Six Sigma Project Manager Relationship Specialty Start Date End Date Wesley Em MD PCP - General 09/30/16 12/01/21 documented as of this encounter
--- OUTSIDE RECORDS SUMMARY | 2024-06-18 18:13 | XMS_ITS | Encounter Summary ---
Author Organization [facility] Medical Group Address [address] [address] Care Team Providers Care Order Analyst Name Role Phone Wesley Em MD Primary Care Provider [phone] Reason for Referral * Diagnostic Imaging (Routine) - Closed Specialty Diagnoses / Procedures Referred By Contac t Referred To Contact Radiology Diagnoses Chronic bilateral low back pain, with sciatica presence unspecified Procedures MRI Thoracic Spine WO Contrast Wesley Em MD Phone: tel: fax: [address] [phone] Referral ID Status Reason Start Date Expiration Date Visits Re quested Visits Authorized [id number] Closed 10/30/2018 05/10/2020 1 1 * Diagnostic Imaging (Routine) - Closed Specialty Diagnoses / Procedures Referred By Contac t Referred To Contact Radiology Diagnoses Personal history of nicotine dependence Tobacco abuse disorder Procedures CT Lung Cancer Screening Wesley Em MD Phone: tel: fax: [address] [phone] Referral ID Status Reason Start Date Expiration Date Visits Re quested Visits Authorized [id number] Closed 10/30/2018 05/10/2020 1 1 Encounter Details Date Type Department Care Team (Late st Contact Info) Description 10/30/2018 Orders Only [facility] 2 [facility] [address] [place] [phone] Wesley Em MD 2 [facility] [address] [place] [address] Tobacco abuse disorder (Primary Dx); Chronic bilateral low back pain, with sciatica presence unspecified; Personal history of nicotine dependence Social History Tobacco Use Types Packs/Day Years Used Date Smoking Tobacco: Former Smokeless Tobacco: Never Alcohol Use Standard Drinks/Week Comments No 0 (1 standard drink = 0.6 oz pur e alcohol) Sex and Gender Information Value Date Recorded Sex Assigned at Not on file 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 ??MILD CORD ATROPHY. Electronically signed by: Shorty Carvalho M.D. Narrative 02/15/2019 9:52 AM CDT RESULT: EXAMINATION: MRI THORACIC SPINE WO CONTRAST dated 02/14/2019 3:00 PM HISTORY: 73-year-old man chronic low back pain bilaterally with sciatica. Injury at the age of 17. ??History of coronary artery disease and hypertension. ??Kidney stones. TECHNIQUE: Multiplanar multisequence spin-echo images obtained. FINDINGS: Correlation is made with sagittal reformatted images obtained at the time of a chest CT of 8:15, today's date. ??There is a moderate right convexity thoracic scoliosis with multilevel degenerative changes. Minor nonacute wedge deformities are seen at multiple levels with degenerative changes seen at multiple levels. 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 ??Bone marrow signal intensity is unremarkable. Thoracic cord and conus medullaris demonstrate mild atrophy without mass effect or displacement. ??No CORD compression, spinal or foraminal stenosis. ??No disc herniations are seen. ??No paraspinous masses are seen. ??Cortical cysts are seen within the kidneys. Procedure Note Shorty Carvalho MD - 02/15/2019 RESULT: EXAMINATION: MRI THORACIC SPINE WO CONTRAST dated 02/14/2019 3:00 PM HISTORY: 73-year-old man chronic low back pain bilaterally with sciatica. Injury at the age of 17. History of coronary artery disease and hypertension. Kidney stones. TECHNIQUE: Multiplanar multisequence spin-echo images obtained. FINDINGS: Correlation is made with sagittal reformatted images obtained at the time of a chest CT of 8:15, today's date. There is a moderate right convexity thoracic scoliosis with multilevel degenerative changes. Minor nonacute wedge deformities are seen at multiple levels with degenerative changes seen at multiple levels. 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 Bone marrow signal intensity is unremarkable. Thoracic cord and conus medullaris demonstrate mild atrophy without mass effect or displacement. No CORD compression, spinal or foraminal stenosis. No disc herniations are seen. No paraspinous masses are seen. Cortical cysts are seen within the kidneys. IMPRESSION: SCOLIOTIC DEFORMITY WITH DEGENERATIVE CHANGES WITHOUT CORD COMPRESSION. MILD CORD ATROPHY. Electronically signed by: Shorty Carvalho M.D. Wesley Em MD IM MRI PROCEDURES Final Resul t * CT Lung Cancer Screening (02/14/2019 2:50 [...] documented in this encounter Visit Diagnoses Diagnosis Tobacco abuse disorder- Primary Chronic bilateral low back pain, with sciatica presence unspecified Personal history of nicotine dependence Personal history of nicotine dependence Tobacco abuse disorder Chronic bilateral low back pain, with sciatica presence unspecified documented in this encounter Care Teams Order Analyst Relationship Specialty Start Date End Date Wesley Em MD PCP - General 09/30/16 12/01/21 documented as of this encounter
--- OUTSIDE RECORDS SUMMARY | 2024-06-18 18:13 | XMS_ITS | Encounter Summary ---
Author Organization [facility] Medical Group Address [address] [place] [address] Care Team Providers Care Nutrition Tech Name Role Phone Wesley Em MD Primary Care Provider [phone] Encounter Details Date Type Department Care Team (Late st Contact Info) Description 04/05/2018 Orders Only [facility] [address] [address] [place] [id number] Wesley Em MD [address] [place] [address] [address] [place] [address] Essential hypertension (Primary Dx); Type 2 diabetes mellitus with hyperlipidemia ([facility]/HCC) Social History Tobacco Use Types Packs/Day Years Used Date Smoking Tobacco: Former Smokeless Tobacco: Never Alcohol Use Standard Drinks/Week Comments No 0 (1 standard drink = 0.6 oz pur e alcohol) Sex and Gender Information Value Date Recorded Sex Assigned at Not on file 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 LDL, calculated 141(H) <=129 mg/dL [facility] Comment: Interpretive Data Ages [...] last revised on 2018. Chol/HDL ratio 6 [facility] Blood specimen (specimen) 04/09/2018 8:27 AM CDT 04/09/2018 6:56 PM CDT [facility]ative [facility] - 04/[facility] 7:19 PM CDT Wesley Em MD LAB BLOOD ORDERABLES Final Res ult Performing Organization Address [facility] de Phone Number [facility] [place] [address] [facility] [employer] [place], [place] [id number] * Hemoglobin A1c (04/09/2018 8:27 AM CDT) Hgb A1C 6.0 4.0 - 6.0 % [facility] Comment: Interpretive Data Hemoglobin A1c ADA Interpretive Guidelines ??<7% ?? Glycemia controlled ??>8% ?? Hyperglycemia, additional action recommended Estrada Immunochemical Method Current interpretive data was last revised on 2015 Testing performed by: [facility], [place] [address] Estimated Average Glucose 126 mg/dL [facility] Comment:Testing performed by : [facility], [place] [address] Blood specimen (specimen) 04/09/2018 8:27 AM CDT 04/10/2018 8:17 AM CDT Narrative [facility] - 04/10/2018 12:17 PM CDT us Wesley Em MD LAB BLOOD ORDERABLES Final Res ult Performing Organization Address [facility] de Phone Number R[facility] [address] [address] [facility] [place] [address] * Basic metabolic panel (04/09/2018 8:27 AM CDT) Sodium 141 135 - 145 mmol/L [facility] Potassium, pl 3.5 3.5 - 5.1 mmol/L [facility] Chloride 105 100 - 114 mmol/L [facility] CO2 28 22 - 32 mmol/L [facility] Anion gap 12 8 - 16 mmol/L [facility] BUN 11 8 - 24 mg/dL [facility] Creatinine 1.16 0.70 - 1.40 mg/dL [facility] Glucose 117 70 - 199 mg/dL [facility] Comment: Interpretive Data Fasting glucose >/= 126 [...] 2017. Calcium 8.6 8.4 - 10.5 mg/dL [facility] Blood specimen (specimen) 04/09/2018 8:27 AM CDT 04/09/2018 6:56 PM CDT Narrative [facility] - 04/09/2018 7:19 PM CDT Wesley Em MD LAB BLOOD ORDERABLES Final Res ult [facility] [address] [facility] [place] [address] documented in this encounter Visit Diagnoses Diagnosis Essential hypertension- Primary Unspecified essential hypertension Type 2 diabetes mellitus with hyperlipidemia (HCC) Essential hypertension Unspecified essential hypertension Type 2 diabetes mellitus with hyperlipidemia (HCC) documented in this encounter Care Teams Nutrition Tech Relationship Specialty Start Date End Date Wesley Em MD PCP - General 09/30/16 12/01/21 documented as of this encounter
--- OUTSIDE RECORDS SUMMARY | 2024-06-18 18:13 | XMS_ITS | Encounter Summary ---
Author Organization [facility] Healthcare Address [address] [place] [address] Care Team Providers Care Research Geologist Name Role Phone Wesley Em MD Primary Care Provider [phone] Encounter Details Date Type Department Care Team (Late st Contact Info) Description 10/11/2018 9:43 AM CDT - 10/11/2018 10:14 AM CDT Hospital Encounter [facility] Simon Bucio MD [facility] [address] [address] Social History Tobacco Use Types Packs/Day Years Used Date Smoking Tobacco: Former Smokeless Tobacco: Never Alcohol Use Standard Drinks/Week Comments No 0 (1 standard drink = 0.6 oz pur e alcohol) Sex and Gender Information Value Date Recorded Sex Assigned at Not on file 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 D.O.B: 1945 ? Exam Date: 10/11/18 ?? 0000 ?? Age: 72 ?Sex: Male ? MR#: [id number] ?? Loc: ? RADIOLOGY REPORT ?? Order #[id number] ?? CT Scan ? CT Abd/Pelvis WO IV Contrast ? Signed ?? EXAM DESCRIPTION: ??CT Abd/Pelvis WO IV Contrast ? REASON FOR STUDY: ??Bilateral nephrolithiasis. ??Lower pelvic pain for 3 weeks. ? Gross hematuria. ? TECHNIQUE: ??CT scan of the abdomen and pelvis performed without intravenous ?? and without oral contrast using helical scanning technique. Reconstructed ?? coronal and sagittal MPR images reviewed. All images stored on PACS. ? Automated exposure control was used as a dose optimization technique for this ?? examination. ? COMPARISON: ??Abdominal radiograph 09/24/2018 ? FINDINGS: ? The sensitivity for detection of visceral lesions is diminished without the ?? use of intravenous contrast. ? LOWER CHEST: There is minimal scarring or atelectasis noted within each lung ?? base. ??There is no pleural or pericardial effusion. ??There is atherosclerotic ?? calcification of the descending thoracic aorta. ? LIVER: The liver is normal in size. ??There is no perihepatic fluid. ? Evaluation for mass within the solid organs limited on noncontrast imaging. ? GALLBLADDER: No calcified stones identified. No wall thickening or ?? inflammatory changes. ? BILE DUCTS: No intrahepatic or extrahepatic ductal dilatation. ? SPLEEN: Normal in size. ??No perisplenic fluid collection. ? PANCREAS: There is no peripancreatic inflammation or fluid collection. ? Pancreatic duct is not dilated. ? ADRENALS: Unremarkable. ? KIDNEYS/URINARY TRACT: There is mild fullness of the left renal collecting ?? system compared to the right. ??The left ureter is slightly greater in caliber, ?? without significant hydroureter. ??There is no ureteral stone. ??There is no ?? stone within the urinary bladder. ??The calcifications suggested on the prior ?? radiograph are related to vascular calcifications at the hilum of the left ?? kidney. ??There is no appreciable nephrolithiasis. ??There is a hypodense ?? exophytic 3.8 cm lesion in the lower pole of the left kidney, representing a ?? cyst. ??Evaluation for smaller lesions within the left kidney limited. ? Findings in the left collecting system and ureter could be related to a ?? recently passed stone or 2 underlying urinary tract infection. ??Correlate ?? clinically. ??The urinary bladder is mildly thick walled, though is partially ?? decompressed. ??The thick wall nature could also relate to underlying ?? prostatomegaly. ??There is mass effect upon the base of the urinary bladder. ? GI: The stomach is decompressed. ??Small bowel loops are normal in caliber. ? There is no wall thickening. ??There is no obstruction. ??The appendix is normal. ? There is diverticulosis, without diverticulitis. ? PERITONEUM: There is no free intraperitoneal air. ??There is no free fluid. ? There is a fat containing hernia just to the left of the umbilicus, measuring ?? approximately 2.5 cm. ? RETROPERITONEUM: There is no retroperitoneal mass or lymphadenopathy. ? Scattered nonenlarged nodes are present. ? REPRODUCTIVE: The prostate gland is enlarged and mildly heterogeneous. ? Correlate with PSA values. ? VASCULATURE: The abdominal aorta and pelvic vasculature are atherosclerotic, ?? without aneurysm. ? MUSCULOSKELETAL: There is thoracic and lumbar spondylosis. ??There is no acute ?? fracture. ??No aggressive appearing osseous lesion. ? OTHER: There is a tiny fat containing left inguinal hernia. ? IMPRESSION: ? 1.Minimal fullness of the left renal collecting system in the left ureter ?? compared to the right. ??There is no obstructing stone. ??Findings could reflect ?? underlying infection or recently passed calculus. ??Given the history of gross ?? hematuria, CT IVP is recommended for further evaluation. ? 2.Prostatomegaly. ??Correlate with PSA values. ? 3.No nephrolithiasis. ??Calcifications demonstrated on recent radiograph relate ?? to vascular calcifications at the left renal pelvis. ? 4.Diverticulosis without diverticulitis. ? 5.Left renal cysts. ? 6.Fat containing ventral hernia just to the left of the umbilicus. ? THIS IS AN ELECTRONICALLY VERIFIED FINAL REPORT ?? 10/11/2018 10:36 AM - Electronically signed by Ysabel Bauer M.D. ?? Ysabel Bauer M.D. ? TB ?? D: ??10/11/2018 10:36 AM ?? T: ? Report ID: [id number] ?? Reading Location: ??[id number] ? REPORT ELECTRONICALLY SIGNED IN OTHER VENDOR SYSTEM ?? Resulting Agency Comment O Procedure Note Ysabel Bauer MD - 10/11/2018 Patient Name: VILLA ZUNIGA Dr: Simon Bucio MD D.O.B: 1945 Exam Date: 10/11/18 0000 Age: 72 Sex: Male MR#: [id number] Loc: RADIOLOGY REPORT Order #[id number] CT Scan CT Abd/Pelvis WO IV Contrast Signed EXAM DESCRIPTION: CT Abd/Pelvis WO IV Contrast REASON FOR STUDY: Bilateral nephrolithiasis. Lower pelvic pain for 3weeks. Gross hematuria. TECHNIQUE: CT scan of the abdomen and pelvis performed withoutintravenous and without oral contrast using helical scanning technique. Reconstructed coronal and sagittal MPR images reviewed. All images stored on PACS. Automated exposure control was used as a dose optimization technique forthis examination. COMPARISON: Abdominal radiograph 09/24/2018 FINDINGS: The sensitivity for detection of visceral lesions is diminished withoutthe use of intravenous contrast. LOWER CHEST: There is minimal scarring or atelectasis noted within eachlung base. There is no pleural or pericardial effusion. There isatherosclerotic calcification of the descending thoracic aorta. LIVER: The liver is normal in size. There is no perihepatic fluid. Evaluation for mass within the solid organs limited on noncontrastimaging. GALLBLADDER: No calcified stones identified. No wall thickening or inflammatory changes. BILE DUCTS: No intrahepatic or extrahepatic ductal dilatation. SPLEEN: Normal in size. No perisplenic fluid collection. PANCREAS: There is no peripancreatic inflammation or fluid collection. Pancreatic duct is not dilated. ADRENALS: Unremarkable. KIDNEYS/URINARY TRACT: There is mild fullness of the left renalcollecting system compared to the right. The left ureter is slightly greater incaliber, without significant hydroureter. There is no ureteral stone. There isno stone within the urinary bladder. The calcifications suggested on theprior radiograph are related to vascular calcifications at the hilum of theleft kidney. There is no appreciable nephrolithiasis. There is a hypodense exophytic 3.8 cm lesion in the lower pole of the left kidney,representing a cyst. Evaluation for smaller lesions within the left kidney limited. Findings in the left collecting system and ureter could be related to a recently passed stone or 2 underlying urinary tract infection. Correlate clinically. The urinary bladder is mildly thick walled, though ispartially decompressed. The thick wall nature could also relate to underlying prostatomegaly. There is mass effect upon the base of the urinarybladder. GI: The stomach is decompressed. Small bowel loops are normal incaliber. There is no wall thickening. There is no obstruction. The appendix isnormal. There is diverticulosis, without diverticulitis. PERITONEUM: There is no free intraperitoneal air. There is no freefluid. There is a fat containing hernia just to the left of the umbilicus,measuring approximately 2.5 cm. RETROPERITONEUM: There is no retroperitoneal mass or lymphadenopathy. Scattered nonenlarged nodes are present. REPRODUCTIVE: The prostate gland is enlarged and mildly heterogeneous. Correlate with PSA values. VASCULATURE: The abdominal aorta and pelvic vasculature areatherosclerotic, without aneurysm. MUSCULOSKELETAL: There is thoracic and lumbar spondylosis. There is noacute fracture. No aggressive appearing osseous lesion. OTHER: There is a tiny fat containing left inguinal hernia. IMPRESSION: 1.Minimal fullness of the left renal collecting system in the left ureter compared to the right. There is no obstructing stone. Findings couldreflect underlying infection or recently passed calculus. Given the history ofgross hematuria, CT IVP is recommended for further evaluation. 2.Prostatomegaly. Correlate with PSA values. 3.No nephrolithiasis. Calcifications demonstrated on recent radiographrelate to vascular calcifications at the left renal pelvis. 4.Diverticulosis without diverticulitis. 5.Left renal cysts. 6.Fat containing ventral hernia just to the left of the umbilicus. THIS IS AN ELECTRONICALLY VERIFIED FINAL REPORT 10/11/2018 10:36 AM - Electronically signed by Ysabel Bauer M.D. TB T: Report ID: [id number] Reading Location: [id number] REPORT ELECTRONICALLY SIGNED IN OTHER VENDOR SYSTEM us Simon Bucio MD IMG CT PROCEDURES Iwona l Result documented in this encounter Visit Diagnoses Not on filedocumented in this encounter Care Teams Research Geologist Relationship Specialty Start Date End Date Wesley Em MD PCP - General 09/30/16 12/01/21 documented as of this encounter
--- OUTSIDE RECORDS SUMMARY | 2024-06-18 18:13 | XMS_ITS | Encounter Summary ---
Author Organization [facility] Medical Group Address [address] [place] [address] Care Team Providers Care Tank Worker Name Role Phone Wesley Em MD Primary Care Provider [phone] Reason for Visit * Reason Comments Hypertension GERD Suspicious Skin Lesion Left forearm X 1 month Encounter Details Date Type Department Care Team (Late st Contact Info) Description 04/03/2019 11:15 AM CDT Office Visit [facility] [address] [facility] [address] [place] [address] Wesley Em MD [address] [place] [address] [address] [place] [address] Severe uncontrolled hypertension (Primary Dx); BMI 28.0-28.9,adult; Essential hypertension; Skin lesion Social History Tobacco Use Types Packs/Day Years Used Date Smoking Tobacco: Former Smokeless Tobacco: Never Alcohol Use Standard Drinks/Week Comments No 0 (1 standard drink = 0.6 oz pur e alcohol) PHQ-2 Answer Date Recorded PHQ-2 Score 0 02/22/2019 Sex and Gender Information Value Date Recorded Sex Assigned at Not on file 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 Gender Identity Not on file Sexual Orientation Straight 01/23/2021 10 :16 PM CDT documented as of this encounter Last Filed Vital Signs Vital Sign Reading Time Taken Comments Blood Pressure 170/110 04/03/2019 11:16 AM CDT Pulse 60 04/03/2019 11:16 AM CDT Temperature - - Respiratory Rate 20 04/03/2019 11:16 AM CDT Oxygen Saturation - - Inhaled Oxygen Concentration - - Weight 87.5 kg (193 lb) 04/03/2019 11:16 AM CDT Height 176.5 cm (5' 9.5 ) 04/03/2019 11:16 AM CD T Body Mass Index 28.09 04/03/2019 11:16 AM CDT documented in this encounter Progress Notes * Wesley Em MD - 04/03/2019 11:15 AM CDT Subjective/Objective Patient ID: Villa Zuniga is a 73 y.o. male. Chief Complaint Hypertension; GERD; and Suspicious Skin Lesion (Left forearm X 1 month) HPI 73-year-old seen today states he has been under lot of stress his daughter rectus truck and is beendealing with insurance [employer] states he has not been taking his blood pressure medication blood pressure extremely high today states he feels fine he refuses all vaccines no flu shots for him. He is not have any headache he states he feels fine 7 no chest pain orthopnea PND does have a history of coronary disease Review of Systems he states he has a couple skin lesions 1 on his left forearm is concerned about this popped up with last few months another 1 on his right lower back to spend ever several years hiswife's concerned about no change in the 1 the low back area Vitals: 04/03/19 1116 BP: (!) 170/110 BP Location: Left arm Patient Position: Sitting Pulse: 60 Resp: 20 Weight: 87.5 kg (193 lb) Height: 176.5 cm (5' 9.5 ) Physical Exam Blood pressure confirmed neck is supple patient is alert oriented person place and time lungs are clear no rales rhonchi or wheezes cardiovascular regular without murmurs gallops clicks rubs extremities no edema no cords Homans signs negative gait normal skin examination reveals raise erythematous papule left anterior lateral forearm measures 1 cm to maybe 1.5 cm no drainage multiple nevi locatedon low back upper back with benign appearance Assessment/Plan Diagnoses and all orders for this visit: Severe uncontrolled hypertension (Primary) The importance get his blood pressure under control discussed with patient at length he does understand the importance of taking his medication compliantly he does understand he has put himself at risk for stroke heart attack kidney failure by having no compliance with his medications on a regular basis he states he will go home start take his medication immediately he will do the blood test thatwas scheduled for last month today since he did get that done as well BMI 28.0-28.9,adult Essential hypertension He has had no problems with his blood pressure medicine he just decided not to take him since he has been busy doing other things 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 Patient states she does not wish to seek dermatological consultation outside the this area he understands no Dermatology in the area except [facility] Side effects, risks, interactions reviewed with patient. [...] Severe uncontrolled hypertension- Primary Unspecified essential hypertension BMI 28.0-28.9,adult Essential hypertension Unspecified essential hypertension Skin lesion Unspecified disorder of skin and subcutaneous tissue documented in this encounter Care Teams Tank Worker Relationship Specialty Start Date End Date Wesley Em MD PCP - General 09/30/16 12/01/21 documented as of this encounter
--- OUTSIDE RECORDS SUMMARY | 2024-06-18 18:13 | XMS_ITS | Encounter Summary ---
Author Organization 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
--- OUTSIDE RECORDS SUMMARY | 2024-06-18 18:13 | XMS_ITS | Encounter Summary ---
Author Organization [facility] Healthcare Address [address] [place] [address] Care Team Providers Care Vehicle Fare Collector Name Role Phone Wesley Em MD Primary Care Provider [phone] Reason for Referral * Diagnostic Imaging (Routine) - Closed Specialty Diagnoses / Procedures Referred By Contac t Referred To Contact Radiology Diagnoses Chronic bilateral low back pain, with sciatica presence unspecified Procedures MRI Thoracic Spine WO Contrast Wesley Em MD Phone: tel: fax: [address] [phone] Referral ID Status Reason Start Date Expiration Date Visits Re quested Visits Authorized [id number] Closed 10/30/2018 05/10/2020 1 1 Reason for Visit * Diagnostic Imaging (Routine) - Closed Specialty Diagnoses / Procedures Referred By Contac t Referred To Contact Radiology Diagnoses Chronic bilateral low back pain, with sciatica presence unspecified Procedures MRI Thoracic Spine WO Contrast Wesley Em MD Phone: tel: fax: [address] [phone] Referral ID Status Reason Start Date Expiration Date Visits Re quested Visits Authorized [id number] Closed 10/30/2018 05/10/2020 1 1 Encounter Details Date Type Department Care Team (Latest Contact Info) Description 02/14/2019 2:37 PM CDT - 02/14/2019 11:59 PM CDT Hospital Encounter [facility] Imaging and Radiology [address] [phone] Wesley Em MD [address] [place] [address] [place] [address] Chronic bilateral low back pain, with sciatica presence unspecified Discharge Disposition: Discharge to home or self care Social History Tobacco Use Types Packs/Day Years Used Date Smoking Tobacco: Former Smokeless Tobacco: Never Alcohol Use Standard Drinks/Week Comments No 0 (1 standard drink = 0.6 oz pur e alcohol) Sex and Gender Information Value Date Recorded Sex Assigned at Not on file 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 Gender Identity Not on file Sexual Orientation [...] Notes * Wesley Em MD - 02/14/2019 11:59 PM CDT Okay to leave a message MRI scan looked okay documented in this encounter Plan of Treatment Not on file documented as of this encounter Procedures Procedure Name Priority Date/Time Associated Diagnosis Comments MRI THORACIC SPINE WO CONTRAST Schedule Routine, Read Routine (OP Routine) 02/14/2019 3:45 PM CDT Chronic bilateral low back pain, with sciatica presence unspecified documented in this encounter Results * MRI Thoracic Spine [...] MD IM MRI PROCEDURES Final Resul t documented in this encounter Visit Diagnoses Diagnosis Chronic bilateral low back pain, with sciatica presence unspecified documented in this encounter Care Teams Vehicle Fare Collector Relationship Specialty Start Date End Date Wesley Em MD PCP - General 09/30/16 12/01/21 documented as of this encounter
--- OUTSIDE RECORDS SUMMARY | 2024-06-18 18:14 | XMS_ITS | Encounter Summary ---
Author Organization [facility] Healthcare Address [address] [place] [address] Care Team Providers Care Rn Resource Nurse Name Role Phone Wesley Em MD Primary Care Provider [phone] Encounter Details Date Type Department Care Team (Late st Contact Info) Description 01/09/2018 8:30 AM CDT - 01/09/2018 9:00 AM CDT Surgery [facility] [address] [place] [address] Albert Craft MD [address] [place], [place] [id number] COLON REMOVAL SNARE Surgery Details Date/Time Status Location OR Service Patient Class Case Class Case Type Trauma Case? 01/09/2018 8:30 AM Posted [facility] ENDOSCOPY GI Cap Gastroenterology Outpatient Elective Panel 1 Procedure LRB Anes Op Region Wound Class Comments COLON REMOVAL SNARE N/A Monitor Anes thesia Care Class II - Clean Contaminated Endo Add On Colon Biopsy N/A Choice Surgeon Surgeon Role Service Panel Albert Cratf MD Primary Gastroenterology 1 documented in this encounter Social History Tobacco Use Types Packs/Day Years Used Date Smoking Tobacco: Former Smokeless Tobacco: Never Alcohol Use Standard Drinks/Week Comments No 0 (1 standard drink = 0.6 oz pur e alcohol) Sex and Gender Information Value Date Recorded Sex Assigned at Not on file 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 Gender Identity Not on file Sexual Orientation Straight 01/23/2021 10 :16 PM CDT documented as of this encounter Last Filed Vital Signs Vital Sign Reading Time Taken Comments Blood Pressure 141/85 01/09/2018 7:11 AM CDT Pulse 73 01/09/2018 7:11 AM CDT Temperature 36.5 ??C (97.7 ??F) 01/09/2018 7:11 AM CD T Respiratory Rate 20 01/09/2018 7:11 AM CDT Oxygen Saturation 96% 01/09/2018 7:11 AM CDT Inhaled Oxygen Concentration - - Weight 89.8 kg (198 lb) 01/09/2018 7:11 AM CDT Height 176.5 cm (5' 9.5 ) 01/09/2018 7:11 AM CDT Body Mass Index 28.82 01/09/2018 7:11 AM CDT documented in this encounter Medications at Time of Discharge aspirin 81 mg tablet Take one by mouth one time per day 0 0 06/27/2008 atorvastatin (LIPITOR) 40 mg tablet take 1 tablet by oral route every day 90 3 03/25/2016 09/21/2018 clopidogrel (PLAVIX) 75 mg tablet TAKE ONE TABLET BY MOUTH EVERY DAY 90 tablet 2 10/11/2017 05/22/2019 finasteride (PROSCAR) 5 mg tablet TAKE ONE TABLET BY MOUTH EVERY DAY 90 tablet 3 02/17/2017 05/09/2019 finasteride (PROSCAR) 5 mg tablet Take 5 mg by mouth daily. 04/23/2018 metoprolol XL (TOPROL-XL) 25 mg 24 hr tablet Take 25 mg by mouth daily. 09/21/2018 potassium citrate ER (UROCIT-K) 10 mEq (1,080 mg) CR tablet take 1 tablet by oral route 2 times every day 0 0 10/12/2016 10/07/2021 raNITIdine (ZANTAC) 300 mg tablet take 1 tablet by oral route bid 180 3 06/17/2016 10/30/2018 tamsulosin (FLOMAX) 0.4 mg capsule,extended release 24hr TAKE ONE CAPSULE BY MOUTH EVERY DAY 90 capsule 3 12/14/2016 01/26/2018 documented as of this encounter Discharge Disposition Disposition Code Departure Means Destination Discharge to home or self care documented in this encounter H&P Notes * Albert Craft MD - 01/09/2018 8:50 AM CDT History and Physical Date of visit: 01/09/2018 Subjective: Patient is a 72 y.o. male presented for evaluation for screening for colon cancer. . Past Medical History: Diagnosis Date ??? [facility] [...] Heart stents: [facility] October/October Prescriptions Prior to Admission Medication Sig Dispense Refill Last Dose ??? aspirin 81 mg tablet Take one by mouth one time per day 0 0 Past Week at Unknown time ??? atorvastatin (LIPITOR) 40 mg tablet take 1 tablet by oral route every day 90 3 01/08/2018 at Unknown time ??? clopidogrel (PLAVIX) 75 mg tablet TAKE ONE TABLET BY MOUTH EVERY DAY 90 tablet 2 Past Week at Unknown time ??? finasteride (PROSCAR) 5 mg tablet Take 5 mg by mouth daily. 01/08/2018 at Unknown time ??? metoprolol XL (TOPROL-XL) 25 mg 24 hr tablet Take 25 mg by mouth daily. 01/08/2018 at Unknown time ??? potassium citrate ER (UROCIT-K) 10 mEq (1,080 mg) CR tablet take 1 tablet by oral route 2 timesevery day 0 0 01/08/2018 at Unknown time ??? raNITIdine (ZANTAC) 300 mg tablet take 1 tablet by oral route bid 180 3 01/08/2018 at Unknown time ??? tamsulosin (FLOMAX) 0.4 mg capsule,extended release 24hr TAKE ONE CAPSULE BY MOUTH EVERY DAY 90capsule 3 01/08/2018 at Unknown time Allergies Allergen Reactions ??? Apple ??? Ciprofloxacin Rash Reaction: RASH, Reaction: Rash, Social History Substance Use Topics ??? Smoking status: Former Smoker ??? Smokeless tobacco: Never Used ??? Alcohol use No Family History Problem Relation Age of Onset ??? Hypertension Mother Hypertension; ??? Heart disease Mother Heart disease; ??? Diabetes Mother Diabetes mellitus; ??? Stroke Mother 66 Stroke; ??? Cancer Mother Cancer; ??? Alzheimer's disease Father Alzheimer's Disease; Physical Exam: Patient is awake and answers well. Eyes: no jaundice. Lungs: CTA anteriorly. ENT: no mouth ulcers. Abdomen: soft, no distention, no tenderness, bowel sounds positive. Extremities: no edema. Skin: no rash. GI IMPRESSION: 1. Screening for colon cancer GI PLAN/RECOMMENDATIONS: 1. colonoscopy Albert Craft MD documented in this encounter Procedure Notes * Albert Craft MD - 01/09/2018 8:46 AM CDTAssociated Order(s): COLONOSCOPY [facility] Patient Name: Villa Alston Procedure Date: 01/09/2018 8:46 AM Date of : 1945 Admit Type: Outpatient Age: 72 Gender: Male Attending MD: Albert Craft MD Room: [facility] Note Status: Finalized Patient Profile: 72 WM, screening colonoscopy, h/o poyps, no family h/o colon cancer. Procedure: Colonoscopy Indications: Screening for colorectal malignant neoplasm, personal h/o polyps, Last colonoscopy: October 2009 Referring MD: Wesley Em MD Providers: Albert Craft MD Impression: - One 5 mm polyp in the cecum, removed with a jumbo cold forceps. Resected and retrieved. - One 8 mm polyp in the ascending colon, removed with a cold snare. Resected and retrieved. - One 12 mm polyp in the descending colon, removed with a cold snare. Resected and retrieved. - Two 4 to 5 mm polyps in the descending colon, removed with a jumbo cold forceps. Resected [...] Physical was performed, and patient medications and allergies were reviewed. The patient's tolerance of previous anesthesia was also reviewed. The risks and benefits of the procedure and the sedation options and risks were discussed with the patient. All questions were answered, and informed consent was obtained. Prior Anticoagulants: The patient has taken no previous anticoagulant or antiplatelet agents. ASA Grade Assessment: II - A patient with mild systemic disease. After reviewing the risks and benefits, the patient was deemed in satisfactory condition to undergo the procedure. The benefits, risks and alternatives of the procedure and sedation were discussed and informed consent was obtained. All questions were answered. Please refer to the signed informed consent document in the medical record. The scope was passed under direct vision. The Pediatric Colonoscope PCF-H190L [id number] was introduced through the anus and advanced to the the cecum, identified by appendiceal orifice and ileocecal valve. The colonoscopy was performed without difficulty. The patient tolerated the procedure well. The quality of the bowel preparation was [...] found in the descending colon. The polyp was sessile. The polyp was removed with a cold snare. Resection and retrieval were complete. Two sessile polyps were found in the descending colon. The polyps were 4 to 5 mm in size. These polyps were removed with a jumbo cold forceps. Resection and retrieval were complete. Mild to moderate diverticulosis noted in the sigmoid colon. Internal hemorrhoids were found during retroflexion. The hemorrhoids were medium-sized. Electronically signed by Albert Craft M.D. Albert Craft MD 01/09/2018 9:27:27 AM Number of Addenda: 0 Note Initiated On: 01/09/2018 8:46 AM Procedure Code(s): --- Professional --- 49446, Colonoscopy, flexible; with removal of tumor(s), polyp(s), or other lesion(s) by snare technique 95326, 59, Colonoscopy, flexible; with biopsy, single or multiple Diagnosis Code(s): --- Professional --- Z12.11, Encounter for screening for malignant neoplasm of colon D12.0, Benign neoplasm of cecum D12.2, Benign neoplasm of ascending colon D12.4, Benign neoplasm of descending colon K64.8, Other hemorrhoids CPT copyright 2017 [employer]. All rights reserved. The codes documented in this report are preliminary and upon wall insulation sprayer review may be revised to meet current compliance requirements. Recognized by the [employer] for promoting quality in endoscopy documented in this encounter Plan of Treatment Not on file documented as of this encounter Procedures Procedure Name Priority Date/Time Associated Diagnosis Comments SURGICAL PATHOLOGY Routine 01/09/2018 12 :24 PM CDT COLONOSCOPY 01/09/2018 8:46 AM CDT ENDO ADD ON COLON BIOPSY 01/09/2018 8:42 AM CDT COLONOSCOPY SCREENING COLON REMOVAL SNARE 01/09/2018 8 :42 AM CDT COLONOSCOPY SCREENING documented in this encounter Results * Surgical pathology (01/09/2018 12:24 PM CDT) 01/09/2018 12:2 4 PM CDT 01/09/2018 12:24 PM CDT Narrative 01/10/2018 10:39 AM CDT EPIC results best viewed via link to PDF [facility] Department of Pathology [address] [place], [place] [id number] Final Report Patient Name: ??VILLA ALSTON SR Address: [address] ??[place], [place] [address] Gender: ??M : ??1945 (Age: 72) Service: ??Gastro Location: ??[facility] Hospital #: ??[id number] Patient Type: ??[facility] Accession # ?[id number] Taken: ??01/09/2018 Received: ??01/09/2018 Accessioned: ??01/09/2018 Reported: ??01/10/2018 Physician(s):Dr. Albert Craft M.D. Diagnosis: A. ??Cecum, biopsy: ? - Tubular adenoma B. ??Ascending colon, biopsy: ? - Tubular adenoma C. ??Descending colon, biopsy: ? - Tubular adenoma Brooklyn Ortiz M.D. Report Electronically Reviewed and Signed Out By ??Brooklyn Ortiz M.D. ??01/10/2018 10:39:36 Specimen(s) Received: A: Colon, biopsy B: Colon, biopsy C: Colon, biopsy Microscopic Description: Microscopic examination of the biopsies from the cecum, ascending and descending colon, each examined at multiple levels, reveals a benign pattern with alterations that support the clinical impression of polyps. ??These are adenomatous lesions that have a tubular architectural arrangement. Clinical History: Screening. ??Cecum. ??Ascending. ??Descending. ??Colon removal snare. Gross Description: The specimen is submitted in three containers labeled Villa J. Tendick SR . A. ??The first container is labeled cecum . ??It is one pink-penny tissue fragment measuring 2 mm. ??All in A. B. ??The second container is labeled ascending . ??It is two pink-penny tissue fragment measuring 2-3 mm. ??All in B. C. ??The third container is labeled descending . ??It is eight pink-penny tissue fragments measuring 1-2 mm. ??All in C. ??Trey Castorena M.D./Ricco Romero REPORT IMAGES AND SCANNED DOCUMENTS, IF INCLUDED, ONLY VIEWABLE IN PDF VERSION OF REPORT The performance characteristics of some immunohistochemical stains, fluorescence in-situ hybridization tests and immunophenotyping by flow cytometry cited in this report (if any) were determined by the Surgical Pathology Department at [facility] as part of an ongoing chief quality officer program and in compliance with federally mandated regulations drawn from the Clinical Laboratory Improvement Act of 1988 (CLIA '88). ??Some of these tests rely on the use of analyte specific reagents and are subject to specific labeling requirements by the US Food and Drug Administration. ??Such diagnostic tests may only be performed in a facility that is certified by the Department of Health and Human Services as a high complexity laboratory under CLIA '88. The FDA has determined that such clearance or approval is not necessary. ??This test is used for clinical purposes. ??It should not be regarded as investigational or for research. ??Nevertheless, federal rules concerning the medical use of analyte specific reagents require that the following disclaimer be attached to the report: This test was developed and its performance characteristics determined by the Surgical Pathology Department [facility]. ??It has not been cleared or approved by the U. S. Food and Drug Administration. us Albert Craft MD LAB PATHOLOGY ORDERABLES F inal Result * COLONOSCOPY (01/09/2018 8:46 AM CDT) Anatomical Region Laterality Modality Other Narrative Procedure Note Albert Craft MD - 01/09/2018 8:46 AM CDT [facility] Patient Name: Villa Alston Procedure Date: 01/09/2018 8:46 AM Date of : 1945 Admit Type: Outpatient Age: 72 Gender: Male Attending MD: Albert Craft MD Room: [facility] Note Status: Finalized Patient Profile: [...] passed under direct vision.The Pediatric Colonoscope PCF-H190L [id number] was introduced through the anus and advanced [...] 8:46 AM Procedure Code(s): --- Professional --- 06850, Colonoscopy, flexible; with removal of tumor(s), polyp(s), or other lesion(s) by snare technique 84340, 59, Colonoscopy, flexible; with biopsy, single or multiple Diagnosis Code(s): --- Professional --- Z12.11, Encounter for screening for malignant neoplasm of colon D12.0, Benign neoplasm of cecum D12.2, Benign neoplasm of ascending colon D12.4, Benign neoplasm of descending colon K64.8, Other hemorrhoids CPT copyright 2017 [employer]. All rights reserved. The codes documented in this report are preliminary and upon wall insulation sprayer reviewmay be revised to meet current compliance requirements. Recognized by the [employer] for promoting quality in endoscopy us Albert Craft MD ENDOSCOPY PROCEDURES Final Result documented in this encounter Visit Diagnoses Not on filedocumented in this encounter Administered Medications Inactive Administered Medications - up to 3 most recent administrations Medication Order MAR Action Action Date Dose Rate Site ondansetron (ZOFRAN) injection 4 mg 4 mg, intravenous, Every 30 min PRN, nausea, vomiting, Starting on Mon01/09/18 at 0710, For 2 doses, Recovery (GI), Indications: Nausea and VomitingIndications:Nause a and Vomiting sodium chloride 0.9% flush 0.5-20 mL 0.5-20 mL, intra-catheter, As needed, line care, Starting on Mon01/09/18 at 0710, Pre-Procedure (GI), Flush volume based on line type and size. Flush before and after each use. , Indications: FlushingIndications:Flush ing sodium chloride 0.9% infusion 30 mL/hr, intravenous, Continuous, Starting on Mon01/09/18 at 0745, Pre-Procedure (GI) New Bag 01/09/2018 7:34 AM CDT 30 mL/hr 30 mL/hr Right Hand sodium chloride 0.9% infusion 125 mL/hr, intravenous, Continuous, Starting on Mon01/09/18 at 0745, Recovery (GI) New Bag 01/09/2018 8:47 AM CDT documented in this encounter Discontinued Medications Medication Sig Discontinue Reason Start Date End Da te raNITIdine (ZANTAC) 300 mg tablet Take 300 mg by mouth. Error 01/09/2018 documented as of this encounter Historical Medications * This list may reflect changes made after this encounter. metoprolol XL (TOPROL-XL) 25 mg 24 hr tablet Take 25 mg by mouth daily. 09/21/2018 finasteride (PROSCAR) 5 mg tablet Take 5 mg by mouth daily. 04/23/2018 raNITIdine (ZANTAC) 300 mg tablet Take 300 mg by mouth. 01/09/2018 added in this encounter Active and Recently Administered Medications Times are shown in CDT. Continuous Medication Order 01/07/2018 01/08/2018 01/09/2018 sodium chloride 0.9% infusion 30 mL/hr, intravenous, Continuous, Starting on Mon01/09/18 at 0745, Pre-Procedure (GI) 0734 (New Bag - Prov ider: Alia Treviño RN) sodium chloride 0.9% infusion 125 mL/hr, intravenous, Continuous, Starting on Mon01/09/18 at 0745, Recovery (GI) 0847 (New Bag - Prov ider: Katy Richard MD) PRN Medication Order 01/07/2018 01/08/2018 01/09/2018 ondansetron (ZOFRAN) injection 4 mg 4 mg, intravenous, Every 30 min PRN, nausea, vomiting, Starting on Mon01/09/18 at 0710, For 2 doses, Recovery (GI), Indications: Nausea and Vomiting sodium chloride 0.9% flush 0.5-20 mL 0.5-20 mL, intra-catheter, As needed, line care, Starting on Mon01/09/18 at 0710, Pre-Procedure (GI), Flush volume based on line type and size. Flush before and after each use. , Indications: Flushing documented in this encounter Orders Medications Ordered That Reg ht Not Have Been Administered Count Last Ordered Date First Ordered Date ondansetron (ZOFRAN) injection 4 mg 1 01/09 sodium chloride 0.9% flush 0.5-20 mL 1 12/31 sodium chloride 0.9% infusion 1 01/09/2018 Lab Orders Without Results Count Last Ordered D ate First Ordered Date SURGICAL PATHOLOGY 1 01/09/2018 documented in this encounter Care Teams Rn Resource Nurse Relationship Specialty Start Date End Date Wesley Em MD PCP - General 09/30/16 12/01/21 documented as of this encounter
--- OUTSIDE RECORDS SUMMARY | 2024-06-18 18:14 | XMS_ITS | Encounter Summary ---
Author Organization [facility] Address [address] [place] [address] Care Team Providers Care [facility] Worker Name Role Phone Wesley Em MD Primary Care Provider Encounter Details Date Type Department Care Team (Latest Contact Info) Description 09/05/2017 8:00 AM CAN CLOSING MACHINE OPERATOR - 09/05/2017 8:45 AM CAN CLOSING MACHINE OPERATOR Surgery [address] [address] Albert Craft MD [address] [place], [place] [id number] ESOPHAGOGASTRODUODENOSCOPY BIOPSY Surgery Details Date/Time Status Location OR Service Patient Class Case Class Case Type Trauma Case? 09/05/2017 8:00 AM Posted [facility] ENDOSCOPY GI Cap Gastroenterology Outpatient in Bed Elective Panel 1 Procedure LRB Anes Op Region Wound Class Comments ESOPHAGOGASTRODUODENOSCOPY BIOPSY N/A Monitor Anesthesia Care Surgeon Surgeon Role Service Panel Albert Craft MD Primary Gastroenterology 1 documented in this encounter Social History Tobacco Use Types Packs/Day Years Used Date Smoking Tobacco: Former Smokeless Tobacco: Never Alcohol Use Standard Drinks/Week Comments No 0 (1 standard drink = 0.6 oz pur e alcohol) Sex and Gender Information Value Date Recorded Sex Assigned at Not on file Legal Sex Male 6:00 PM CAN CLOSING MACHINE OPERATOR Gender Identity Not on file Sexual Orientation Straight 01/23/2021 10 :16 PM CDT documented as of this encounter Last Filed Vital Signs Vital Sign Reading Time Taken Comments Blood Pressure 158/70 09/05/2017 8:35 AM CAN CLOSING MACHINE OPERATOR Pulse 70 09/05/2017 8:35 AM CAN CLOSING MACHINE OPERATOR Temperature 36.1 ??C (96.9 ??F) 09/05/2017 7:08 AM CS T Respiratory Rate 20 09/05/2017 8:35 AM CAN CLOSING MACHINE OPERATOR Oxygen Saturation 99% 09/05/2017 8:35 AM CAN CLOSING MACHINE OPERATOR Inhaled Oxygen Concentration - - Weight 87.5 kg (193 lb) 09/05/2017 7:11 AM CAN CLOSING MACHINE OPERATOR Height 175.3 cm (5' 9 ) 09/05/2017 7:11 AM CAN CLOSING MACHINE OPERATOR Body Mass Index 28.5 09/05/2017 7:11 AM CAN CLOSING MACHINE OPERATOR documented in this encounter Medications at Time of Discharge aspirin 81 mg tablet Take one by mouth one time per day 0 0 06/27/2008 atorvastatin (LIPITOR) 40 mg tablet take 1 tablet by oral route every day 90 3 03/25/2016 09/21/2018 clopidogrel (PLAVIX) 75 mg tablet TAKE ONE TABLET BY MOUTH EVERY DAY 90 2 10/01/2012 10/11/2017 finasteride (PROSCAR) 5 mg tablet TAKE ONE TABLET BY MOUTH EVERY DAY 90 tablet 3 02/17/2017 05/09/2019 metoprolol (LOPRESSOR) 25 mg tablet Take 1 tablet (25 mg total) by mouth 2 (two) times a day. 60 tablet 11 12/26/2016 12/26/2017 potassium citrate ER (UROCIT-K) 10 mEq (1,080 [...] H&P Notes * Albert Craft MD - 09/05/2017 8:31 AM CST History and Physical Date of visit: 09/05/2017 Subjective: Patient is a 71 y.o. male presented for evaluation for River's esophagus. Past Medical History: Diagnosis Date ??? River [...] mouth one time per day 0 0 09/04/2017 at Unknown time ??? atorvastatin (LIPITOR) 40 mg tablet take 1 tablet by oral route every day 90 3 09/04/2017 at Unknown time ??? clopidogrel (PLAVIX) 75 mg tablet TAKE ONE TABLET BY MOUTH EVERY DAY 90 2 Past Week ??? finasteride (PROSCAR) 5 mg tablet TAKE ONE TABLET BY MOUTH EVERY DAY 90 tablet 3 09/04/2017 at Unknown time ??? metoprolol (LOPRESSOR) 25 mg tablet Take 1 tablet (25 mg total) by mouth 2 (two) times a day. 60 tablet 11 09/04/2017 at Unknown time ??? potassium citrate ER (UROCIT-K) 10 mEq (1,080 mg) CR tablet take 1 tablet by oral route 2 timesevery day 0 0 09/04/2017 at Unknown time ??? raNITIdine (ZANTAC) 300 mg tablet take 1 tablet by oral route bid 180 3 09/04/2017 at Unknown time ??? tamsulosin (FLOMAX) 0.4 mg capsule,extended release 24hr TAKE ONE CAPSULE BY MOUTH EVERY DAY 90capsule 3 09/04/2017 at Unknown time Allergies Allergen Reactions ??? [...] edema. Skin: no rash. GI IMPRESSION: 1. River's esophagus GI PLAN/RECOMMENDATIONS: 1. EGD Albert Craft MD CLOSING MACHINE OPERATOR documented in this encounter Procedure Notes * Albert Craft MD - 09/05/2017 8:13 AM CSTAssociated Order(s): EGD [facility] Patient Name: Verna Alston Procedure Date: 09/05/2017 8:13 AM Date of : 1945 Admit Type: Outpatient Age: 71 Gender: Male Attending MD: Albert Craft MD Room: [facility] END[facility]COPY CAP[facility] Note Status: Finalized Patient Profile: 71 WM with h/o river's/ he is on Zantac 300 g daily. He is also on ASA and Plavix. No symptoms. Procedure: Upper GI endoscopy Indications: Follow-up of River's esophagus Referring MD: Wesley Em M.D. Providers: Albert Craft MD Impression: - Normal examined duodenum. - Normal stomach. - Short-segment River's esophagus. Biopsied. Recommendation: - Await pathology results. - Continue present medications. - Repeat the upper endoscopy in 2 years for surveillance. Medicines: Monitored Anesthesia Care Complications: No immediate [...] condition to undergo the procedure. The benefits, risks, and alternatives to the procedure and sedation were discussed and informed consent was obtained. The scope was passed under direct vision. The Endoscope GIF-H190 [id number] was introduced through the mouth, and advanced to the second part of duodenum. The upper GI endoscopy was accomplished without difficulty. The patient tolerated the procedure well. Findings: The examined duodenum was normal. The entire examined stomach was normal. There were esophageal mucosal changes suspicious for short-segment River's esophagus present at the gastroesophageal junction. The maximum longitudinal extent of these mucosal changes was 2 cm in length. Mucosa was biopsied with a cold forceps for histology. One specimen bottle was sent to pathology. No strictures and no suspicious lesions. Electronically signed by Albert Craft M.D. Albert Craft MD 09/05/2017 8:39:33 AM Number of Addenda: 0 Note Initiated On: 09/05/2017 8:13 AM Procedure Code(s): --- Professional --- 43132, Esophagogastroduodenoscopy, flexible, transoral; with biopsy, single or multiple Diagnosis Code(s): --- Professional --- K22.70, 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 CPT copyright 2014 [employer]. All rights reserved. The codes documented in this report are preliminary and upon compliance engineer review may be revised to meet current compliance requirements. Recognized by the [employer] for promoting quality in endoscopy CLOSING MACHINE OPERATOR documented in this encounter Plan of Treatment Not on file documented as of this encounter Procedures Procedure Name Priority Date/Time Associated Diagnosis Comments SURGICAL PATHOLOGY Routine 09/05/2017 10:19 AM CAN CLOSING MACHINE OPERATOR EGD 09/05/2017 8:13 AM CAN CLOSING MACHINE OPERATOR ESOPHAGOGASTRODUODENOSCOPY BIOPSY 09/05/2017 8:12 AM CAN CLOSING MACHINE OPERATOR BARRETTS GLUCOSE POC Routine 09/05/2017 7:40 AM CAN CLOSING MACHINE OPERATOR DISCHARGE LABORATORY CUMULAT SONG REPORT 09/05/2017 12:00 AM CAN CLOSING MACHINE OPERATOR SURGICAL PATHOLOGY 09/05/2017 12:00 AM CAN CLOSING MACHINE OPERATOR documented in this encounter Results * Surgical pathology (09/05/2017 10:19 AM CAN CLOSING MACHINE OPERATOR) 09/05/2017 10:1 9 AM CAN CLOSING MACHINE OPERATOR 09/05/2017 10:19 AM CAN CLOSING MACHINE OPERATOR Narrative 09/06/2017 2:22 PM CAN CLOSING MACHINE OPERATOR [facility] Department of Pathology [address] [place] [id number] Final Report ?Patient Name: VERNA ALSTON Address: [address] Service: Gastro ??[place], [place] Location: [facility] Taken: 09/05/2017 Gender: M Received 09/05/2017 : 1945 (Age: 71) [facility] #: [id number] Accessioned: 09/05/2017 ?? Patient Type: [facility] SDS Reported 09/06/2017 Physician(s): Dr. Albert Craft M.D. ?? Diagnosis: EG junction, biopsy: ? -River's metaplasia with reactive glandular atypia. ? -Negative for dysplasia or malignancy. ?? Valentino Blandon M.D. ??Report Electronically Reviewed and Signed Out By ??Valentino Blandon M.D. ??09/06/2017 14:22:16 Specimen(s) Received: A: EG Junction, Biopsy Microscopic Description: Microscopic examination of the EG junction, examined multiple levels shows fragments of both squamous as well as glandular mucosa, with the squamous component predominating. ??The glandular component shows some mild acute inflammation is as well as focal intestinal-type metaplasia, compatible with the clinical impression of River's metaplasia. ??While the inflammation is accompanied by mild reactive/reparative glandular atypia, there is no evidence of dysplasia or malignancy. ??If this is of concern, recommend follow-up with repeat sampling after clearing of inflammation. Clinical History: River's esophagus with dysplasia. ??EGD. Gross Description: The specimen is submitted in a single container of formalin labeled with the patient's name and GE junction biopsy . ??It consists of multiple fragments of penny soft tissue that range between 0.2 and 0.3 cm in maximum dimensions. ??All submitted in one cassette. ??Aristides Jiang M.D./Alen Martines, P.A. Complete report with images are only be viewable in the PDF report The performance characteristics of some immunohistochemical stains, fluorescence in-situ hybridization tests and immunophenotyping by flow cytometry cited in this report (if any) were determined by the Surgical Pathology Department at [facility] as part of an ongoing quality process engineer program and in compliance with federally mandated [...] a high complexity laboratory under CLIA '88. ??The FDA has determined that such clearance or approval is not necessary. ??This test is used for clinical purposes. ??It should not be regarded as investigational or for research. ??Nevertheless, federal rules concerning the medical use of analyte specific reagents require that the following disclaimer be attached to the report: This test was developed and its performance characteristics determined by the Surgical Pathology Department [facility]. ??It has not been cleared or approved by the U. S. Food and Drug Administration. Albert Craft MD LAB PATHOLOGY ORDERABLES F inal Result * EGD (09/05/2017 8:13 AM CAN CLOSING MACHINE OPERATOR) Anatomical Region Laterality Modality Other Narrative Procedure Note Albert Craft MD - 09/05/2017 8:13 AM CST [facility] Patient Name: Verna Alston Procedure Date: 09/05/2017 8:13 AM Date of : 1945 Admit Type: Outpatient Age: 71 Gender: Male Attending MD: Albert Craft MD Room: [facility] Note Status: Finalized Patient Profile: 71 WM with h/o river's/ he is on Zantac 300 gdaily. He is also on ASA and Plavix. No symptoms. Procedure: Upper GI endoscopy Indications: Follow-up of River's esophagus Referring MD: Wesley Em M.D. Providers: Albert Craft MD Impression: - Normal examined duodenum. - Normal stomach. - Short-segment River's esophagus. Biopsied. Recommendation: - Await pathology results. - Continue present medications. - Repeat the upper endoscopy in 2 years for surveillance. Medicines: Monitored Anesthesia Care Complications: No immediate [...] condition to undergo the procedure. The benefits, risks, and alternatives to theprocedure and sedation were discussed and informed consent was obtained. The scope was passed under direct vision.The Endoscope GIF-H190 [id number] was introduced throughthe mouth, and advanced to the second part of duodenum.The upper GI endoscopy was accomplished withoutdifficulty. The patient tolerated the procedure well. Findings: The examined duodenum was normal. The entire examined stomach was normal. There were esophageal mucosal changes suspicious for short-segment River's esophagus present at the gastroesophageal junction. The maximum longitudinal extent of these mucosal changes was 2 cm inlength. Mucosa was biopsied with a cold forceps for histology. One specimen bottle was sent to pathology. No strictures and no suspiciouslesions. Electronically signed by Albert Craft M.D. Albert Craft MD 09/05/2017 8:39:33 AM Number of Addenda: 0 Note Initiated On: 09/05/2017 8:13 AM Procedure Code(s): --- Professional --- 63936, Esophagogastroduodenoscopy, flexible, transoral; with biopsy, single or multiple Diagnosis Code(s): --- Professional --- K22.70, 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 CPT copyright 2014 [employer]. All rights reserved. The codes documented in this report are preliminary and upon compliance engineer reviewmay be revised to meet current compliance requirements. Recognized by the [employer] for promoting quality in endoscopy Albert Craft MD ENDOSCOPY PROCEDURES Final Result * (ABNORMAL) Glucose POC (09/05/2017 7:40 AM CAN CLOSING MACHINE OPERATOR) Glucose, POC 109(H) 71 - 98 mg/dL RUBENS CARMICHAEL ([place]) Blood specimen (specimen) 09/05/2017 7:40 AM CAN CLOSING MACHINE OPERATOR 09/05/2017 7:40 AM CAN CLOSING MACHINE OPERATOR Narrative RUBENS CARMICHAEL ([place]) - 09/05/2017 7:46 AM CAN CLOSING MACHINE OPERATOR Albert Craft MD POINT OF CARE TEST ORDERAB LES Final Result RUBENS CARMICHAEL ([place]) 1 [facility] Department [place] [address] * DISCHARGE LABORATORY CUMULATIVE REPORT (09/05/2017 12:00 AM CAN CLOSING MACHINE OPERATOR) Narrative 09/05/2017 12:00 AM CAN CLOSING MACHINE OPERATOR Ordered by an unspecified provider. Historical Provider LAB BLOOD ORDERABLES Iwona l Result * SURGICAL PATHOLOGY (09/05/2017 12:00 AM CAN CLOSING MACHINE OPERATOR) Narrative 09/05/2017 12:00 AM CAN CLOSING MACHINE OPERATOR Ordered by an unspecified provider. Historical Provider LAB PATHOLOGY ORDERABLES Final Result documented in this encounter Visit Diagnoses Not on filedocumented in this encounter Administered Medications Inactive Administered Medications - up to 3 most recent administrations Medication Order MAR Action Action Date Dose Rate Site ondansetron (ZOFRAN) injection 4 mg 4 mg, intravenous, Every 30 min PRN, nausea, vomiting, Starting on Mon09/05/17 at 0720, For 2 doses, Recovery (GI), Indications: Nausea and VomitingIndications:Garrick sea and Vomiting sodium chloride 0.9% flush 0.5-20 mL 0.5-20 mL, intra-catheter, As needed, line care, Starting on Mon09/05/17 at 0721, Pre-Procedure (GI), Flush volume based on line type and size. Flush before and after each use. , Indications: FlushingIndications:Flu shing sodium chloride 0.9% flush 0.5-20 mL 0.5-20 mL, intra-catheter, As needed, line care, Starting on Mon09/05/17 at 0720, Pre-Op/Floor (GI), Flush volume based on line type and size. Flush before and after each use. , Indications: FlushingIndications:Flu shing sodium chloride 0.9% infusion 30 mL/hr, intravenous, Continuous, Starting on Mon09/05/17 at 0800, Pre-Procedure (GI) New Bag 09/05/2017 7:34 AM CAN CLOSING MACHINE OPERATOR 30 mL/hr 30 mL/hr Right Forearm sodium chloride 0.9% infusion 125 mL/hr, intravenous, Continuous, Starting on Mon09/05/17 at 0800, Recovery (GI) documented in this encounter Active and Recently Administered Medications Times are shown in CAN CLOSING MACHINE OPERATOR. Continuous Medication Order 09/03/2017 09/04/2017 09/05/2017 sodium chloride 0.9% infusion 30 mL/hr, intravenous, Continuous, Starting on Mon09/05/17 at 0800, Pre-Procedure (GI) 0734 (New Bag - Prov ider: Alia Treviño RN) sodium chloride 0.9% infusion 125 mL/hr, intravenous, Continuous, Starting on Mon09/05/17 at 0800, Recovery (GI) 0800 (Due) PRN Medication Order 09/03/2017 09/04/2017 09/05/2017 ondansetron (ZOFRAN) injection 4 mg 4 mg, intravenous, Every 30 min PRN, nausea, vomiting, Starting on 09/05/17 at 0720, For 2 doses, Recovery (GI), Indications: Nausea and Vomiting sodium chloride 0.9% flush 0.5-20 mL 0.5-20 mL, intra-catheter, As needed, line care, Starting on 09/05/17 at 0721, Pre-Procedure (GI), Flush volume based on line type and size. Flush before and after each use. , Indications: Flushing sodium chloride 0.9% flush 0.5-20 mL 0.5-20 mL, intra-catheter, As needed, line care, Starting on 09/05/17 at 0720, Pre-Op/Floor (GI), Flush volume based on line type and size. Flush before and after each use. , Indications: Flushing documented in this encounter Orders Medications Ordered That Reg ht Not Have Been Administered Count Last Ordered Date First Ordered Date ondansetron (ZOFRAN) injection 4 mg 1 09/05 sodium chloride 0.9% flush 0.5-20 mL 2 12/2017 sodium chloride 0.9% infusion 1 09/05/2017 Lab Orders Without Results Count Last Ordered D ate First Ordered Date SURGICAL PATHOLOGY 1 09/05/2017 Discharge Count Last Ordered Date First Orde red Date DISCHARGE PATIENT 1 09/05/2017 documented in this encounter Care Teams [facility] Worker Relationship Specialty Start Date End Date Wesley Em MD PCP - General 09/30/16 12/01/21 documented as of this encounter
--- OUTSIDE RECORDS SUMMARY | 2024-06-18 18:14 | XMS_ITS | Encounter Summary ---
Author Organization [facility] Healthcare Address [address] [place] [address] Care Team Providers Care Sterilization Specialist Name Role Phone Wesley Em MD Primary Care Provider [phone] Encounter Details Date Type Department Care Team (Late st Contact Info) Description 09/05/2017 8:15 AM SECONDARY SCHOOL REGISTRAR Anesthesia Event [address] [address] [place] [id number] [address] Anesthesia Record Procedure Summary Procedure Name Responsible Anesthesiologist Anesthesia Start Time Anesthesia Stop Time ESOPHAGOGASTRODUODENOSCOPY BIOPSY Katy Richard MD 09/05/17 0815 09/05/17 0824 Events Date Time Event Comment 09/05/2017 0738 0815 An Start 0815 An Start Data 0815 An Induction The patient was reevaluated immediately before moderate or deep sedation use and before anesthesia induction. 0816 Anesthesia Ready 0817 In Room 0820 Proc Start 0824 an stop data 0824 An Stop 0825 Proc Fin 0831 Out of Room 0839 Release from care Meds Name Total propofol 140 mg lidocaine (cardiac) syringe 2 % 40 mg LR 0 mL * Agents Name O2 * Blood No blood administrations on file. Lines, Drains, and Airways Type Details Placement Removal Peripheral IV Placement Date: 12/18; Placement Time: 741; Catheter Size: 20 G; Orientation: Right; Location: Forearm; Site Prep: Chlorhexidine; Inserted by: jessie Cm student nurse; Insertion Attempts: 1; Patient Tolerance: Tolerated well; Removal Date: 05/07/19; Removal Reason: Removed by unknown clinician (Comment) 09/05/17 0742 by Alia Treviño RN 05/07/19 0000 by Ratna Fried NP documented in this encounter Social History Tobacco Use Types Packs/Day Years Used Date Smoking Tobacco: Former Smokeless Tobacco: Never Alcohol Use Standard Drinks/Week Comments No 0 (1 standard drink = 0.6 oz pur e alcohol) Sex and Gender Information Value Date Recorded Sex Assigned at Not on file Legal Sex Male 6:00 PM SECONDARY SCHOOL REGISTRAR Gender Identity Not on file Sexual Orientation Straight 01/23/2021 10 :16 PM CDT documented as of this encounter OR Notes * Anesthesia Postprocedure Evaluation - Katy Richard MD - 09/05/2017 8:37 AM CST Patient: Villa Zuniga Procedure Summary Date: 09/05/17 Room / Location: [facility] / [facility] Anesthesia Start: 814 Anesthesia Stop: 823 Procedure: ESOPHAGOGASTRODUODENOSCOPY BIOPSY (N/A ) Diagnosis: (BARRETTS) Provider: Albert Craft MD Responsible Provider: Katy Richard MD Anesthesia Type: general ASA Status: 3 BP (!) 163/103 Pulse 55 Temp 36.1 ??C (96.9 ??F) (Tympanic) Resp 20 Ht 175.3 cm (5' 9 ) Wt 87.5 kg (193 lb) SpO2 95% BMI 28.50 kg/m?? Anesthesia Type: general Last vitals BP Temp Pulse Resp SpO2 Anesthesia Post Evaluation Patient location during evaluation: PACU Patient participation: complete - patient participated Level of consciousness: fully awake Pain management: satisfactory to patient Airway patency: adequate Anesthetic complications: no Cardiovascular status: acceptable Respiratory status: acceptable Hydration status: acceptable Pt is: normothermic Nausea/Vomiting status: none [employer]ARY SCHOOL REGISTRAR * Anesthesia Preprocedure Evaluation - Katy Richard MD - 09/05/2017 7:37 AM CST Anesthesia Evaluation Villa Zuniga is a 71 y.o. male HISTORY Past Medical History Information obtained from: patient and chart. Cardiovascular + Hypertension + CAD Respiratory + COPD Gastrointestinal + GERD Endocrine / Other + Diabetes mellitus Patient Active Problem List Diagnosis ??? Hyperlipidemia ??? Type 2 diabetes mellitus (CMS/HCC) ??? Chronic obstructive pulmonary disease (CMS/HCC) ??? BPH with urinary obstruction ??? 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 Essential hypertension ??? Kidney stones ??? Mayo's esophagus with dysplasia ??? H/O polycythemia ??? Sensorineural hearing loss, bilateral ??? Sebaceous cyst ??? Polycythemia ??? Great toe pain, right ??? Injury of coccyx ??? Cellulitis of hand, left ??? Skin tear of left hand without complication Past Medical History: Diagnosis Date ??? Mayo [...] ??? Ciprofloxacin Rash Reaction: RASH, Reaction: Rash, HOME MEDICATIONS : aspirin 81 mg tablet atorvastatin (LIPITOR) 40 mg tablet clopidogrel (PLAVIX) 75 mg tablet finasteride (PROSCAR) 5 mg tablet metoprolol (LOPRESSOR) 25 mg tablet potassium citrate ER (UROCIT-K) 10 mEq (1,080 mg) CR tablet raNITIdine (ZANTAC) 300 mg tablet tamsulosin (FLOMAX) 0.4 mg capsule,extended release 24hr Current Facility-Administered Medications: ??? ondansetron (ZOFRAN) injection 4 mg, 4 mg, intravenous, Q30 Min PRN ??? sodium chloride 0.9% flush 0.5-20 mL, 0.5-20 mL, intra-catheter, PRN ??? sodium chloride 0.9% flush 0.5-20 mL, 0.5-20 mL, intra-catheter, PRN ??? sodium chloride 0.9% infusion, 30 mL/hr, intravenous, Continuous ??? sodium chloride 0.9% infusion, 125 mL/hr, intravenous, Continuous Social History Smoking Status ??? Former Smoker Smokeless Tobacco ??? Never Used Alcohol Use No Drug Use No Family History Problem Relation Age of Onset ??? Hypertension Mother Hypertension; ??? Heart disease Mother Heart disease; ??? Diabetes Mother Diabetes mellitus; ??? Stroke Mother 66 Stroke; ??? Cancer Mother Cancer; ??? Alzheimer's disease Father Alzheimer's Disease; PAT Physical Exam Vitals: 09/05/17 0708 09/05/17 0711 BP: (!) 163/103 Pulse: 55 Resp: 20 Temp: 36.1 ??C (96.9 ??F) SpO2: 95% PT: No results found for requested labs within last 720 hours. INR: No results found for requested labs within last 720 hours. APTT: No results found for requested labs within last 720 hours. Hgb A1C: No results found for requested labs within last 720 hours. CBC RBC: No results found for requested labs within last 720 hours. RDW: No results found for requested labs within last 720 hours. MCHC: No results found for requested labs within last 720 hours. MCH: No results found for requested labs within last 720 hours. MCV: No results found for requested labs within last 720 hours. Hct: No results found for requested labs within last 720 hours. Hgb: No results found for requested labs within last 720 hours. WBC: No results found for requested labs within last 720 hours. MPV: No results found for requested labs within last 720 hours. Platelets: No results found for requested labs within last 720 hours. RDW CV: No results found for requested labs within last 720 hours. RDW Sd: No results found for requested labs within last 720 hours. BMP Glucose: No results found for requested labs within last 720 hours. Calcium: No results found for requested labs within last 720 hours. Sodium: No results found for requested labs within last 720 hours. Potassium: No results found for requested labs within last 720 hours. CO2: No results found for requested labs within last 720 hours. Chloride: No results found for requested labs within last 720 hours. BUN: No results found for requested labs within last 720 hours. Creatinine: No results found for requested labs within last 720 hours. STOP-Bang Total Score: 3 DOS Physical Exam Medical history, medications, and allergies reviewed. Attestation: This PAT evaluation 09/05/2017. Airway Exam: Mallampati: II Cervical ROM: FROM TM distance: >4 Jaw ROM: full Cardiovascular Exam: Rate: regular Rhythm: regular Pulmonary Exam: LCTA, bilat Current state: Patients current state is cooperative. Anesthesia Plan ASA 3 Planned anesthesia: General Team communication plan: LMA Induction: Induction: intravenous. Postoperative Plan: Postoperative administration opioids intended. No postoperative mechanical ventilation intended. Informed Consent: Discussed plan with attending and SENIOR LIVING ADVISOR. Anesthesia plan and risks discussed with patient. Consent and Attending signature: I and/or my designee have discussed the anesthesia plan, benefits, possible alternatives, parental presence at time of induction (if indicated), and clinically relevant risks that may include dental injury, unintentional awareness, and/or other complications. The patient and/or parent/legal guardian understand, and agree to proceed. All questions answered. [employer] REGISTRAR documented in this encounter Plan of Treatment Not on file documented as of this encounter Visit Diagnoses Not on filedocumented in this encounter Administered Medications Inactive Administered Medications - up to 3 most recent administrations Medication Order MAR Action Action Date Dose Rate Site Lactated Ringer's (LR) infusion intravenous, Continuous PRN, Starting on Mon09/05/17 at 0818, Anesthesia Intra-op New Bag 09/05/2017 8:18 AM [employer] S[employer] REGISTRAR 100 m L/hr lidocaine (cardiac) (XYLOCAINE) preservative free injection intravenous, As needed, Starting on Mon09/05/17 at 0815, Anesthesia Intra-op, Indications: Ventricular ArrhythmiasIndications:Ventric ular Arrhythmias Given 09/05/2017 8:15 AM [employer] REGISTRAR 40 mg propofol (DIPRIVAN) IV intravenous, As needed, Starting on Mon09/05/17 at 0815, Anesthesia Intra-op Given 09/05/2017 8:20 AM [employer] S[employer]OL REGISTRAR 40 mg Given 09/05/2017 8:15 AM [employer] S[employer]OL REGISTRAR 100 mg documented in this encounter Care Teams Sterilization Specialist Relationship Specialty Start Date End Date Wesley Em MD PCP - General 09/30/16 12/01/21 documented as of this encounter
--- OUTSIDE RECORDS SUMMARY | 2024-06-18 18:14 | XMS_ITS | Encounter Summary ---
Author Organization [facility] Address [address] [place] [address] Care Team Providers Care Sewing Machine Maintenance Mechanic Name Role Phone Wesley Em MD Primary Care Provider [phone] Encounter Details Date Type Department Care Team (Late st Contact Info) Description 07/27/2017 Telephone [facility] [address] [address] Wesley Em MD [address] [place] [address] Social History Tobacco Use Types Packs/Day Years Used Date Smoking Tobacco: Former Smokeless Tobacco: Never Alcohol Use Standard Drinks/Week Comments No 0 (1 standard drink = 0.6 oz pur e alcohol) Sex and Gender Information Value Date Recorded Sex Assigned at Not on file Legal Sex Male 6:00 PM MANAGER PARKING Gender Identity Not on file Sexual Orientation Straight 01/23/2021 10 :16 PM CDT documented as of this encounter Miscellaneous Notes * Telephone Encounter - Madonna Gallagher MA - 07/27/2017 9:13 AM CST lmom for pt to cb office. Pt had a CT ordered in 12-17 from checking on seeing if pt is planning on getting this test done and if so when will he be getting it done? Thank you GER PARKING documented in this encounter Plan of Treatment Not on file documented as of this encounter Visit Diagnoses Not on filedocumented in this encounter Care Teams Sewing Machine Maintenance Mechanic Relationship Specialty Start Date End Date Wesley Em MD PCP - General 09/30/16 12/01/21 documented as of this encounter
--- OUTSIDE RECORDS SUMMARY | 2024-06-18 18:14 | XMS_ITS | Encounter Summary ---
Author Organization [facility] Address [address] [place] [address] Phone Care Team Providers Care French Professor Name Role Phone Wesley Em MD Primary Care Provider Trey Pinedo MD Unavailable [phone] Dorinda ChavezW Unavailable Christine Herzog MD Primary Care Provide r Albert Craft MD Unavailable [phone] Chintan Figueroa MD Unavailable [phone] Jameel Bloom DPM Unavailable [phone] Gadiel Genao MD Unavailable [phone] Sepideh iH RN Unavailable Lexii Arnold MA Unavailable [phone] Walker Carvajal LCSW Unavailable Unavailabl e Encounter Details Date Type Department Care Team (Late st Contact Info) Description 10/06/2017 Orders Only [facility] Provider, MD [address] [place] [address] Social History Tobacco Use Types Packs/Day Years Used Date Smoking Tobacco: Former Smokeless Tobacco: Never Alcohol Use Standard Drinks/Week Comments No 0 (1 standard drink = 0.6 oz pur e alcohol) Sex and Gender Information Value Date Recorded Sex Assigned at Not on file Legal Sex Male 6:00 PM BELT LOOP CUTTER Gender Identity Not on file Sexual Orientation Straight 01/23/2021 10 :16 PM CDT documented as of this encounter Plan of Treatment Not on file documented as of this encounter Procedures Procedure Name Priority Date/Time Associated Diagnosis Comments DISCHARGE LABORATORY CUMULATIVE REPORT 10/06/2017 12:00 AM CDT documented in this encounter Results * DISCHARGE LABORATORY CUMULATIVE REPORT (10/06/2017 12:00 AM CDT) Narrative 10/06/2017 12:00 AM CDT Ordered by an unspecified provider. us Historical Provider LAB BLOOD ORDERABLES Iwona l Result documented in this encounter Visit Diagnoses Not on filedocumented in this encounter Additional Health Concerns Infection Onset Date Last Indicated Resolved Time COVID: Suspected 12/08/2021 12/08/2021 12/08/2021 11:03 PM CDT COVID: Suspected 08/06/2022 08/06/2022 08/06/2022 1:19 AM BELT LOOP CUTTER COVID19 Comment:Airborne + Contact precautions. Gown, Gloves, N95, eye protection or goggles. Precautions 08/16/22. Contact Student Teaching Coordinator if patient worsens. SUE Baldwin 08/12/22 08/06/2022 08/06/2022 08/16/2022 3:[address] Coronavirus, contact + dropl et Comment:Negative for coronavirus 08/06/2022 08/06/2022 023 12:29 PM BELT LOOP CUTTER COVID: Recovered Comment:Added based on recent COVID infection. 08/16/2022 08/17/2022 11/14/2022 3:05 AM C DT documented as of this encounter Care Teams French Professor Relationship Specialty Start Date End Date Wesley Em MD PCP - General 09/30/16 12/01/21 Christine Herzog MD [address] [facility] [address] [place] [address] PCP - General Internal Medicine 12/02/21 Trey Pinedo MD [address] [facility] [address] [place] [address] Consulting Physician Neurology 05/09/19 Dorinda Chavez, BINDER STRIPPER MACHINE[address] [place] [address] Ophthalmic Tech 12/30/20 01/26/21 Albert Craft MD 2 [facility] [address] [place] [address] Consulting Physician Gastroenterology 03/11/22 Chintan Figueroa MD 2 [facility] [address] [place] [address] Consulting Physician Hematology and Oncology 03/11/22 Jameel Bloom DPM [address] [place] [address] Consulting Physician Orthotics 03/11/22 Gadiel Genao MD [address] [place] [address] Surgeon Vascular Surgery 03/11/22 Sepideh Hi, SUE [address] [place] [address] [address] [place] [address] Crate Maker 08/12/22 09/01/22 Lexii Arnold MA [address] [place] [address] ACO Care Flatlock Sewing Machine Operator 09/19/22 09/20/22 Walker Carvajal LCSW [address] [facility] [place] [address] Ophthalmic Tech 09/27/22 09/27/22 documented as of this encounter
--- OUTSIDE RECORDS SUMMARY | 2024-06-18 18:14 | XMS_ITS | Encounter Summary ---
Author Organization [facility] Address [address] [place] [address] Care Team Providers Care Senior Manager Quality Assurance Name Role Phone Wesley Em MD Primary Care Provider [phone] Reason for Referral * MRI/CAT/PET Scan (Routine) - Closed Specialty Diagnoses / Procedures Referred By Jomar t Referred To Contact Radiology Diagnoses Cigarette smoker Procedures CT Lung Cancer Screening Wesley Em MD Phone: tel: fax: Referral ID Status Reason Start Date Expiration Date Visits Re quested Visits Authorized [id number] Closed 08/07/2017 02/03/2018 1 1 Reason for Visit * MRI/CAT/PET Scan (Routine) - Closed Specialty Diagnoses / Procedures Referred By Jomar villela Referred To Contact Radiology Diagnoses Cigarette smoker Procedures CT Lung Cancer Screening Wesley Em MD Phone: tel: fax: Referral ID Status Reason Start Date Expiration Date Visits Re quested Visits Authorized [id number] Closed 08/07/2017 02/03/2018 1 1 Encounter Details Date Type Department Care Team (Latest Contact Info) Description 10/11/2017 10:35 AM CDT - 10/11/2017 11:59 PM CDT Hospital Encounter [facility] [id number] [place] [address] Wesley Em MD [address] [facility] [address] [place], [place] [id number] Cigarette smoker Discharge Disposition: Discharge to home or self care Social History Tobacco Use Types Packs/Day Years Used Date Smoking Tobacco: Former Smokeless Tobacco: Never Alcohol Use Standard Drinks/Week Comments No 0 (1 standard drink = 0.6 oz pur e alcohol) Sex and Gender Information Value Date Recorded Sex Assigned at Not on file Legal Sex Male 6:00 PM PRECISION FARMING COORDINATOR Gender Identity Not on file Sexual [...] documented in this encounter Progress Notes * eWsley Em MD - 10/11/2017 11:[address] okay okay to leave a message repeat 1 year * Wesley Em MD - 10/11/2017 3:01 PM CDT Okay to leave a message CT scan looked okay no cancer repeat 1 year documented in this encounter Plan of Treatment Not on file documented as of this encounter Procedures Procedure Name Priority Date/Time Associated Diagnosis Comments CT LUNG CANCER SCREENING Schedule Routine, Read Routine (OP Routine) 10/11/2017 12:07 PM CDT Cigarette smoker documented in this encounter Results * CT Lung Cancer Screening (10/11/2017 12:07 PM CDT) Anatomical Region Laterality Modality Body N/A Computed Tomogra phy Impressions 10/11/2017 2:05 PM CDT Lung RADS category 1, negative. ??Recommendation includes continued annual screening with low dose chest CT. Coronary calcific atherosclerosis. Electronically signed by: Neil Jacob M.D. Narrative 10/11/2017 2:05 PM CDT RESULT: EXAMINATION: CT CHEST WITHOUT CONTRAST, LUNG CANCER SCREENING PROTOCOL Date: 10/11/2017 11:15 AM History: Cigarette smoker Technique: Transaxial computed tomographic images of the chest were obtained without intravenous contrast using a low-dose protocol. Multiplanar coronal and sagittal images were reformatted. Comparison: Comparison is made to the chest CT exam dated 03/22/2016. Findings: There is no evidence of pulmonary nodule or mass. The lungs are free of acute pathologic densities. There is no pneumothorax or pleural effusion. The heart size is normal. ??Severe coronary artery calcifications are present. ??Mild thoracic dextroscoliosis is seen. ??Multilevel degenerative changes involve the thoracic spine. Procedure Note Neil Jacob MD - 10/11/2017 RESULT: EXAMINATION: CT CHEST WITHOUT CONTRAST, LUNG CANCER SCREENING PROTOCOL Date: 10/11/2017 11:15 AM History: Cigarette smoker Technique: Transaxial computed tomographic images of the chest were obtained without intravenous contrast using a low-dose protocol. Multiplanar coronal and sagittal images were reformatted. Comparison: Comparison is made to the chest CT exam dated 03/22/2016. Findings: There is no evidence of pulmonary nodule or mass. The lungs are free of acute pathologic densities. There is no pneumothorax or pleural effusion. The heart size is normal. Severe coronary artery calcifications are present. Mild thoracic dextroscoliosis is seen. Multilevel degenerative changes involve the thoracic spine. IMPRESSION: Lung RADS category 1, negative. Recommendation includes continued annual screening with low dose chest CT. Coronary calcific atherosclerosis. Electronically signed by: Neil Jacob M.D. Wesley Em MD IMG CT PROCEDURES Edited Resul t - Final documented in this encounter Visit Diagnoses Diagnosis Cigarette smoker Tobacco use disorder documented in this encounter Care Teams Senior Manager Quality Assurance Relationship Specialty Start Date End Date Wesley Em MD PCP - General 09/30/16 12/01/21 documented as of this encounter
--- OUTSIDE RECORDS SUMMARY | 2024-06-18 18:14 | XMS_ITS | Encounter Summary ---
Author Organization [facility] Healthcare Address [address] [place] [address] Care Team Providers Care Fixed Wing Aircraft Flight Engineer Name Role Phone Wesley Em MD Primary Care Provider [phone] Encounter Details Date Type Department Care Team (Latest Contact Info) Description 09/05/2017 6:52 AM PATTERNMAKER ALL AROUND - 09/05/2017 9:26 AM PATTERNMAKER ALL AROUND Hospital Encounter [facility] [address] [place] [address] Albert Craft MD [address] [place], [place] [id number] River's esophagus with dysplasia Discharge Disposition: Discharge to home or self care Social History Tobacco Use Types Packs/Day Years Used Date Smoking Tobacco: Former Smokeless Tobacco: Never Alcohol Use Standard Drinks/Week Comments No 0 (1 standard drink = 0.6 oz pur e alcohol) Sex and Gender Information Value Date Recorded Sex Assigned at Not on file Legal Sex Male 6:00 PM PATTERNMAKER ALL AROUND Gender Identity Not on file Sexual Orientation Straight 01/23/2021 10 :16 PM CDT documented as of this encounter Last Filed Vital Signs Vital Sign Reading Time Taken Comments Blood Pressure 163/92 09/05/2017 9:05 AM PATTERNMAKER ALL AROUND Pulse 67 09/05/2017 9:05 AM PATTERNMAKER ALL AROUND Temperature 36.3 ??C (97.3 ??F) 09/05/2017 9:05 AM CS T Respiratory Rate 20 09/05/2017 9:05 AM PATTERNMAKER ALL AROUND Oxygen Saturation 99% 09/05/2017 9:05 AM PATTERNMAKER ALL AROUND Inhaled Oxygen Concentration - - Weight 87.5 kg (193 lb) 09/05/2017 7:11 AM PATTERNMAKER ALL AROUND Height 175.3 cm (5' 9 ) 09/05/2017 7:11 AM PATTERNMAKER ALL AROUND Body Mass Index 28.5 09/05/2017 7:11 AM PATTERNMAKER ALL AROUND documented in this encounter Medications at Time [...] 2012 Heart stents: [facility] Prescriptions Prior to Admission Medication Sig Dispense [...] GI PLAN/RECOMMENDATIONS: 1. EGD Albert Craft MD ERNMAKER ALL AROUND documented in this encounter Procedure Notes * Albert Craft MD - 09/05/2017 8:13 AM CSTAssociated Order(s): EGD [facility] Patient Name: Verna Alston Procedure Date: 09/05/2017 8:13 AM Date of : 1945 Admit Type: Outpatient Age: 71 Gender: Male Attending MD: Albert Craft MD Room: [facility] ENDOSCOPY CAPSULE Note Status: Finalized Patient Profile: [...] passed under direct vision. The Endoscope GIF-H190 [id number] was introduced through the mouth, and advanced [...] 8:13 AM Procedure Code(s): --- Professional --- 42494, Esophagogastroduodenoscopy, flexible, transoral; with biopsy, single or multiple Diagnosis Code(s): --- Professional --- K22.70, 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 CPT copyright 2014 [employer]. All rights reserved. The codes documented in this report are preliminary and upon faculty administrator review may be revised to meet current compliance requirements. Recognized by the [place] [employer] for promoting quality in endoscopy ERNMAKER ALL AROUND documented in this encounter Plan of Treatment Not on file documented as of this encounter Procedures Procedure Name Priority Date/Time Associated Diagnosis Comments SURGICAL PATHOLOGY Routine 09/05/2017 10:19 AM PATTERNMAKER ALL AROUND EGD 09/05/2017 8:13 AM PATTERNMAKER ALL AROUND ESOPHAGOGASTRODUODENOSCOPY BIOPSY 09/05/2017 8:12 AM PATTERNMAKER ALL AROUND BARRETTS GLUCOSE POC Routine 09/05/2017 7:40 AM PATTERNMAKER ALL AROUND DISCHARGE LABORATORY CUMULAT SONG REPORT 09/05/2017 12:00 AM PATTERNMAKER ALL AROUND SURGICAL PATHOLOGY 09/05/2017 12:00 AM PATTERNMAKER ALL AROUND documented in this encounter Results * Surgical pathology (09/05/2017 10:19 AM PATTERNMAKER ALL AROUND) 09/05/2017 10:1 9 AM PATTERNMAKER ALL AROUND 09/05/2017 10:19 AM PATTERNMAKER ALL AROUND Narrative 09/06/2017 2:22 PM PATTERNMAKER ALL AROUND [facility] Department of Pathology [address] [place] [address] Final Report ?Patient Name: VERNA ALSTON Address: [address] Service: Gastro ??[place], [place] [address] Location: [facility] Taken: 09/05/2017 Gender: M Received 09/05/2017 : 1945 (Age: 71) [facility] #: [id number] Accessioned: 09/05/2017 ?? Patient Type: [facility] SDS Reported 09/06/2017 Physician(s): Dr. Albert Craft M.D. ?? Diagnosis: EG junction, biopsy: ? -River's metaplasia with reactive glandular atypia. ? -Negative for dysplasia or malignancy. ?? Olaronke A. Akintola-Ogunremi, M.D. ??Report Electronically Reviewed and Signed Out [...] submitted in one cassette. ??Aristides Jiang M.D./Alen Martines PFelaA. Complete report with images are only be viewable in the PDF report The performance characteristics of some immunohistochemical stains, fluorescence in-situ hybridization tests and immunophenotyping by flow cytometry cited in this report (if any) were determined by the Surgical Pathology Department at [facility] as part of an ongoing vice president quality improvement program and in compliance with federally mandated [...] [facility]. ??It has not been cleared or approved by the U. S. Food and Drug Administration. us Albert Craft MD LAB PATHOLOGY ORDERABLES F inal Result * EGD (09/05/2017 8:13 AM PATTERNMAKER ALL AROUND) Anatomical Region Laterality Modality Other Narrative Procedure Note Albert Craft MD - 09/05/2017 8:13 AM CST [facility] Patient Name: Verna Alston Procedure Date: 09/05/2017 8:13 AM Date of : 1945 Admit Type: Outpatient Age: 71 Gender: Male Attending MD: Albert Craft MD Room: [facility] ENDOSCOPY CAPSULE Note Status: Finalized Patient Profile: [...] was passed under direct vision.The Endoscope GIF-H190 [id number] was introduced throughthe mouth, and advanced to [...] 8:13 AM Procedure Code(s): --- Professional --- 51789, Esophagogastroduodenoscopy, flexible, transoral; with biopsy, single or multiple Diagnosis Code(s): --- Professional --- K22.70, 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 CPT copyright 2014 [employer]. All rights reserved. The codes documented in this report are preliminary and upon faculty administrator reviewmay be revised to meet current compliance requirements. Recognized by the [employer] for promoting quality in endoscopy Albert Craft MD ENDOSCOPY PROCEDURES Final Result * (ABNORMAL) Glucose POC (09/05/2017 7:40 AM PATTERNMAKER ALL AROUND) Glucose, POC 109(H) 71 - 98 mg/dL RUBENS CARMICHAEL (BETTY) Blood specimen (specimen) 09/05/2017 7:40 AM PATTERNMAKER ALL AROUND 09/05/2017 7:40 AM PATTERNMAKER ALL AROUND Narrative RUBENS CARMICHAEL (BETTY) - 09/05/2017 7:46 AM PATTERNMAKER ALL AROUND Albert Craft MD POINT OF CARE TEST ORDERAB LES Final Result RUBENS CARMICHAEL (BETTY) [facility] Department [place] [address] * DISCHARGE LABORATORY CUMULATIVE REPORT (09/05/2017 12:00 AM PATTERNMAKER ALL AROUND) Narrative 09/05/2017 12:00 AM PATTERNMAKER ALL AROUND Ordered by an unspecified provider. Historical Provider LAB BLOOD ORDERABLES Iwona l Result * SURGICAL PATHOLOGY (09/05/2017 12:00 AM PATTERNMAKER ALL AROUND) Narrative 09/05/2017 12:00 AM PATTERNMAKER ALL AROUND Ordered by an unspecified provider. Historical Provider LAB PATHOLOGY ORDERABLES Final Result documented in this encounter Visit Diagnoses Diagnosis River's esophagus with dysplasia documented in this encounter Administered Medications Inactive [...] infusion 30 mL/hr, intravenous, Continuous, Starting on e 09/05/17 at 0800, Pre-Procedure (GI) New Bag 09/05/2017 7:34 AM PATTERNMAKER ALL AROUND 30 mL/hr 30 mL/hr Right Forearm sodium chloride 0.9% infusion 125 mL/hr, intravenous, Continuous, Starting on e 09/05/17 at 0800, Recovery (GI) documented in this encounter Active and Recently Administered Medications Times are shown in PATTERNMAKER ALL AROUND. Continuous Medication Order 09/03/2017 09/04/2017 09/05/2017 sodium chloride 0.9% infusion 30 mL/hr, intravenous, Continuous, Starting on 09/05/17 at 0800, Pre-Procedure (GI) 0734 (New Bag - Prov ider: Alia Treviño RN) sodium chloride 0.9% infusion 125 mL/hr, intravenous, Continuous, Starting on 09/05/17 at 0800, Recovery (GI) 0800 (Due) PRN Medication Order 09/03/2017 09/04/2017 09/05/2017 ondansetron (ZOFRAN) injection 4 mg 4 mg, intravenous, Every 30 min PRN, nausea, vomiting, Starting on 09/05/17 at 0720, For 2 doses, Recovery (GI), Indications: Nausea and Vomiting sodium chloride 0.9% flush 0.5-20 mL 0.5-20 mL, intra-catheter, As needed, line care, Starting on Tue 18 at 0721, Pre-Procedure (GI), Flush volume based [...] 09/05/2017 documented in this encounter Care Teams Fixed Wing Aircraft Flight Engineer Relationship Specialty Start Date End Date Wesley Em MD PCP - General 09/30/16 12/01/21 documented as of this encounter
--- OUTSIDE RECORDS SUMMARY | 2024-06-18 18:14 | XMS_ITS | Encounter Summary ---
Author Organization [facility] Medical Group Address [address] [place] [address] Care Team Providers Care Bioinformatics Software Engineer Name Role Phone Wesley Em MD Primary Care Provider [phone] Encounter Details Date Type Department Care Team (Late st Contact Info) Description 08/07/2017 Telephone [facility] [address] [facility] [address] [place] [address] Wesley Em MD [address] [place] [address] Social History Tobacco Use Types Packs/Day Years Used Date Smoking Tobacco: Former Smokeless Tobacco: Never Alcohol Use Standard Drinks/Week Comments No 0 (1 standard drink = 0.6 oz pur e alcohol) Sex and Gender Information Value Date Recorded Sex Assigned at Not on file Legal Sex Male 6:00 PM CNC MACHINIST 2ND SHIFT Gender Identity Not on file Sexual Orientation Straight 01/23/2021 10 :16 PM CDT documented as of this encounter Miscellaneous Notes * Telephone Encounter - Ana Marques - 08/07/2017 4:16 PM CST Order placed, scheduling will contact him MACHINIST 2ND SHIFT * Telephone Encounter - Araseli Mckeon MA - 08/07/2017 4:11 PM CST Referrals MACHINIST 2ND SHIFT * Telephone Encounter - Wesley Em MD - 08/07/2017 4:07 PM CST Schedule low-dose CT scan of chest at [facility] diagnosis greater than 40 pack year history of smoking lung cancer screening MACHINIST 2ND SHIFT * Telephone Encounter - Araseli Mckeon MA - 08/07/2017 3:17 PM CST JR MACHINIST 2ND SHIFT * Telephone Encounter - Shaun Mercedes MA - 08/07/2017 3:12 PM CST JR wanted PT to get a CT of the chest w/o contrast (he ordered it 12/26/16) calling PT tracking theorder and he states he doesn't remember JR even ordering it so he does not wish to get it at this time. Ok to stop tracking? MACHINIST 2ND SHIFT documented in this encounter Plan of Treatment Not on file documented as of this encounter Visit Diagnoses Not on filedocumented in this encounter Care Teams Bioinformatics Software Engineer Relationship Specialty Start Date End Date Wesley Em MD PCP - General 09/30/16 12/01/21 documented as of this encounter
--- OUTSIDE RECORDS SUMMARY | 2024-06-18 18:14 | XMS_ITS | Encounter Summary ---
Author Organization [facility] Medical Group Address [address] [place] [address] Care Team Providers Care Operator Cavity Pump Name Role Phone Wesley Em MD Primary Care Provider [phone] Reason for Visit * Reason Comments Follow-up cellulitis of left h and Encounter Details Date Type Department Care Team (Late st Contact Info) Description 08/21/2017 1:30 PM FLOAT BUILDER Office Visit [facility] [address] [address] [address] [place] [address] Sheela Adam NP [address] [facility] [address] [place] [address] Skin tear of left hand without complication, initial encounter (Primary Dx); Cellulitis of hand, left; BMI 28.0-28.9,adult Social History Tobacco Use Types Packs/Day Years Used Date Smoking Tobacco: Former Smokeless Tobacco: Never Alcohol Use Standard Drinks/Week Comments No 0 (1 standard drink = 0.6 oz pur e alcohol) Sex and Gender Information Value Date Recorded Sex Assigned at Not on file Legal Sex Male 6:00 PM FLOAT BUILDER Gender Identity Not on file Sexual Orientation Straight 01/23/2021 10 :16 PM CDT documented as of this encounter Last Filed Vital Signs Vital Sign Reading Time Taken Comments Blood Pressure 154/90 08/21/2017 1:19 PM FLOAT BUILDER Pulse 50 08/21/2017 1:19 PM FLOAT BUILDER Temperature 36.9 ??C (98.4 ??F) 08/21/2017 1:19 PM CS T Respiratory Rate 24 08/21/2017 1:19 PM FLOAT BUILDER Oxygen Saturation - - Inhaled Oxygen Concentration - - Weight 87.7 kg (193 lb 6.4 oz) 08/21/2017 1:19 P M FLOAT BUILDER Height 175.3 cm (5' 9.02 ) 08/21/2017 1:19 PM CS T Body Mass Index 28.55 08/21/2017 1:19 PM FLOAT BUILDER documented in this encounter Progress Notes * Sheela Adam, RENAL CASE MANAGER - 08/21/2017 1:30 PM CST Subjective/Objective Patient ID: Villa Zuniga is a 71 y.o. male. Chief Complaint Follow-up (cellulitis of left hand) Patient presents to the office today for follow-up on cellulitis of the left hand as requested. He has now completed his antibiotic course and is pleased to report redness and tenderness have completely abated. He does report receiving a skin tear when he removed his Band-Aid a day or so ago he denies any fever chills. No additional complaints or concerns to offer. His accompanies him today.They are very pleased with his progress thus far. Review of Systems Constitutional: Negative. Negative for fever. HENT: Negative. Eyes: Negative. Respiratory: Negative. Negative for cough, shortness of breath and wheezing. Cardiovascular: Negative. Negative for chest pain. Gastrointestinal: Negative. Negative for diarrhea, nausea and vomiting. Genitourinary: Negative. Negative for dysuria, frequency and urgency. Musculoskeletal: Negative. Skin: Positive for wound. Please refer to HPI. Neurological: Negative. Negative for dizziness, weakness and light-headedness. Hematological: Negative. Psychiatric/Behavioral: Negative. Vitals: 08/21/17 1319 BP: 154/90 BP Location: Right arm Patient Position: Sitting Pulse: 50 Resp: 24 Temp: 36.9 ??C (98.4 ??F) TempSrc: Oral Weight: 87.7 kg (193 lb 6.4 oz) Height: 175.3 cm (5' 9.02 ) Physical Exam Constitutional: He is oriented to person, place, and time. He appears well- developed and well-nourished. No distress. HENT: Head: Normocephalic and atraumatic. Mouth/Throat: Oropharynx is clear and moist. Eyes: Conjunctivae and EOM are normal. Pupils are equal, round, and reactive to light. Neck: Neck supple. Cardiovascular: Normal rate, regular rhythm and normal heart sounds. Pulmonary/Chest: Effort normal and breath sounds normal. No respiratory distress. He has no wheezes. Abdominal: Soft. Bowel sounds are normal. Neurological: He is alert and oriented to person, place, and time. Skin: Skin is warm and dry. He is not diaphoretic. The previously noted abrasions noted on the dorsal surface of the hands bilaterally are healing with scab formation. There is no erythema or soft tissue swelling of the hands. There is no red streaking noted. No axillary adenopathy. No purulent discharge. To the patient's left TM at the base of thethumb he has a skin tear approximately dime size in diameter. There are no signs or symptoms of secondary infection noted to the site. Psychiatric: He has a normal mood and affect. His behavior is normal. Assessment/Plan Diagnoses and all orders for this visit: Skin tear of left hand without complication, initial encounter (Primary) Assessment & Plan: Patient has adequate supply Bactroban previously prescribed. He was encouraged to apply this to thesite of the skin tear and cover with nonadherent dressing until healed. We review signs and symptoms of secondary infection and what to watch out for. He verbalized understanding and was in agreementwith the plan of care as was his who accompanied him today. Cellulitis of hand, left Assessment & Plan: Resolved. There is no indication for additional antibiotics at the present time. BMI 28.0-28.9,adult Disposition: Patient has been instructed to contact the office with any signs or symptoms that are of concern. The patient is to contact the office with any change in, worsening, or non improvement in condition. Patient verbalized understanding. The patient was given the opportunity to ask all questions and to have all questions answered. Patient is in agreement with the plan of care. Sheela dAam NP *This office note was completed using [employer] dispensing optician neisha and may be subject to dispensing optician errors* Cosigned by Wesley Em MD at 08/23/2017 6:57 AM FLOAT BUILDER T BUILDER T BUILDER documented in this encounter Miscellaneous Notes * Assessment & Plan Note - Sheela Adam NP - 08/21/2017 1:58 PM CSTAssociated Problem(s): Skin tear of left hand without complication (Resolved 2017) Patient has adequate supply Bactroban previously prescribed. He was encouraged to apply this to thesite of the skin tear and cover with nonadherent dressing until healed. We review signs and symptoms of secondary infection and what to watch out for. He verbalized understanding and was in agreementwith the plan of care as was his who accompanied him today. T BUILDER * Assessment & Plan Note - Sheela Adam NP - 08/21/2017 1:57 PM CSTAssociated Problem(s): Cellulitis of hand, left (Resolved 2017) Resolved. There is no indication for additional antibiotics at the present time. T BUILDER documented in this encounter Plan of Treatment Not on file documented as of this encounter Visit Diagnoses Diagnosis Skin tear of left hand without complication, initial encounter- Primary Cellulitis of hand, left BMI 28.0-28.9,adult documented in this encounter Discontinued Medications Medication Sig Discontinue Reason Start Date End Da te sulfamethoxazole-trimeth oprim (BACTRIM,SEPTRA) 800-160 mg per tablet Take 1 tablet by mouth 2 (two) times a day for 10 days. smx-tmp DS (BACTRIM) 800-160 mg tabs (1tab q12 D10) 08/12/2017 08/21/2017 documented as of this encounter Care Teams Operator Cavity Pump Relationship Specialty Start Date End Date Wesley Em MD PCP - General 09/30/16 12/01/21 documented as of this encounter
--- OUTSIDE RECORDS SUMMARY | 2024-06-18 18:14 | XMS_ITS | Encounter Summary ---
Author Organization [facility] Healthcare Address [address] [place] [address] Care Team Providers Care Derrick Boat Captain Name Role Phone Wesley Em MD Primary Care Provider [phone] Reason for Visit * Reason Comments Abrasion Encounter Details Date Type Department Care Team (Late st Contact Info) Description 08/12/2017 3:51 PM SPA ATTENDANT - 08/12/2017 4:37 PM SPA ATTENDANT Emergency [facility] Emergency Department [address] [place] [id number] Augusto Hernandez, DO [address] [place] [id number] Cellulitis of left hand excluding fingers and thumb (Primary Dx) Discharge Disposition: Discharge to home or self care Social History Tobacco Use Types Packs/Day Years Used Date Smoking Tobacco: Former Smokeless Tobacco: Never Alcohol Use Standard Drinks/Week Comments No 0 (1 standard drink = 0.6 oz pur e alcohol) Sex and Gender Information Value Date Recorded Sex Assigned at Not on file Legal Sex Male 6:00 PM SPA ATTENDANT Gender Identity Not on file Sexual Orientation Straight 01/23/2021 10 :16 PM CDT documented as of this encounter Last Filed Vital Signs Vital Sign Reading Time Taken Comments Blood Pressure 159/85 08/12/2017 4:22 PM SPA ATTENDANT Pulse 66 08/12/2017 4:22 PM SPA ATTENDANT Temperature 35.6 ??C (96.1 ??F) 08/12/2017 4:22 PM CS T Respiratory Rate 16 08/12/2017 4:22 PM SPA ATTENDANT Oxygen Saturation 98% 08/12/2017 4:22 PM SPA ATTENDANT Inhaled Oxygen Concentration - - Weight 85.7 kg (189 lb) 08/12/2017 4:22 PM SPA ATTENDANT Height 175.3 cm (5' 9 ) 08/12/2017 4:22 PM SPA ATTENDANT Body Mass Index 27.91 08/12/2017 4:22 PM SPA ATTENDANT documented in this encounter Discharge Instructions * Attachments The following attachments cannot be sent through Care Everywhere. * Cellulitis (AfterCare(R) Instructions(ER/ED)) (Zimbabwean) documented in this encounter Medications at Time of Discharge aspirin 81 mg tablet Take one by mouth one time per day 0 0 06/27/2008 mupirocin (BACTROBAN) 2 % ointment Apply topically 3 (three) times a day for 7 days. 15 g 08/12/2017 8 atorvastatin (LIPITOR) 40 mg tablet take 1 tablet by oral route every day 90 3 03/25/2016 9 clopidogrel (PLAVIX) 75 mg tablet TAKE ONE TABLET BY MOUTH EVERY DAY 90 2 10/01/2012 8 finasteride (PROSCAR) 5 mg tablet TAKE ONE TABLET BY MOUTH EVERY DAY 90 tablet 3 02/17/2017 9 metoprolol (LOPRESSOR) 25 mg tablet Take 1 tablet (25 mg total) by mouth 2 (two) times a day. 60 tablet 11 12/26/2016 8 potassium citrate ER (UROCIT-K) 10 mEq (1,080 mg) CR tablet take 1 tablet by oral route 2 times every day 0 0 10/12/2016 2 raNITIdine (ZANTAC) 300 mg tablet take 1 tablet by oral route bid 180 3 06/17/2016 9 sulfamethoxazole -trimethoprim (BACTRIM,SEPTRA) 800-160 mg per tablet Take 1 tablet by mouth 2 (two) times a day for 10 days. smx-tmp DS (BACTRIM) 800-160 mg tabs (1tab q12 D10) 14 tablet 08/12/2017 8 tamsulosin (FLOMAX) 0.4 mg capsule,extended release 24hr TAKE ONE CAPSULE BY MOUTH EVERY DAY 90 capsule 3 12/14/2016 8 documented as of this encounter Ordered Prescriptions Prescription Sig Dispense Quantity Refills Last Filled Start Date End Date sulfamethoxazole-t rimethoprim (BACTRIM,SEPTRA) 800-160 mg per tablet Take 1 tablet by mouth 2 (two) times a day for 10 days. smx-tmp DS (BACTRIM) 800-160 mg tabs (1tab q12 D10) 14 tablet 08/12/2017 8 mupirocin (BACTROBAN) 2 % ointment Apply topically 3 (three) times a day for 7 days. 15 g 08/12/2017 8 documented in this encounter Discharge Disposition Disposition Code Departure Means Destination Discharge to home or self care documented in this encounter ED Notes * Anay Lawson RN - 08/12/2017 4:23 PM CST Pt reports injuring his posterior left hand on a ladder a couple weeks ago and reports scrapping the original 3 wounds off when reaching in between his couch cushions a week ago. Pt reports waking this AM with edema and redness to the left hand. Pt denies fevers and denies additional symptoms at this time. ATTENDANT * Keesha Madrigal NP - 08/12/2017 4:13 PM CST Images from the original note were not included. HPI No chief complaint on file. History provided by: Patient fire officer used: No Hand Injury Location: Hand Hand location: L hand, R hand, dorsum of L hand and dorsum of R hand Injury: yes Time since incident: 3 days Mechanism of injury comment: Abrasion bilateral hands Pain details: Quality: Throbbing Radiates to: Does not radiate Severity: Mild Onset quality: Gradual Duration: 2 weeks Timing: Constant Progression: Worsening Handedness: Right-handed Dislocation: no Foreign body present: No foreign bodies Tetanus status: Up to date Prior injury to area: Yes Worsened by: Movement and stretching area Relieved by: pain decreased after expressing purulent drainage from left hand. Ineffective treatments: antibiotic ointment. Associated symptoms: swelling Associated symptoms: no back pain, no decreased range of motion, no fatigue, no fever, no muscle weakness, no neck pain, no numbness, no stiffness and no tingling Risk factors: no concern for non-accidental trauma Patient states that he fell a couple weeks ago, then 3 days ago, he scratched his hands while trying to get something out of couch cushions. States that he noticed increased pain and swelling to lefthand today. Patient History Patient Active Problem List Diagnosis Date Noted ??? Polycythemia 07/07/2017 ??? Great toe pain, right 07/07/2017 ??? Injury of coccyx 07/07/2017 ??? Sebaceous cyst 06/11/2017 ??? Sensorineural hearing loss, bilateral 05/05/2017 ??? H/O polycythemia 04/18/2017 ??? Mayo's esophagus with dysplasia 12/27/2016 ??? BPH with urinary obstruction 12/26/2016 ??? Coronary artery disease involving [place] heart without angina pectoris 12/26/2016 ??? Essential hypertension 12/26/2016 ??? Kidney stones 12/26/2016 ??? Hyperlipidemia 11/16/2013 Class: Chronic ??? Type 2 diabetes mellitus (CMS/HCC) 11/16/2013 Class: Chronic ??? Chronic obstructive pulmonary disease (CMS/HCC) 11/16/2013 Class: Chronic Past Medical History: Diagnosis Date ??? Chronic obstructive pulmonary disease (CMS/HCC) COPD ??? Diabetes mellitus (CMS/HCC) Diabetes ??? HX OTHER MEDICAL 2013 Heart stents ??? HX OTHER MEDICAL urinary stent s placed ??? Hyperlipidemia Hyperlipidemia ??? Hypertension Hypertension Past Surgical History: Procedure Laterality Date ??? OTHER SURGICAL HISTORY 2003 Carpal tunnel [...] Alzheimer's disease Father Alzheimer's Disease; Social History Substance Use Topics ??? Smoking status: Former Smoker ??? Smokeless tobacco: Never Used ??? Alcohol use No Social History Social History Narrative ??? No narrative on file Review of Systems Review of Systems Constitutional: Negative for appetite change, chills, fatigue and fever. HENT: Negative for congestion, ear pain, postnasal drip, rhinorrhea, sore throat and trouble swallowing. Eyes: Negative for pain, discharge, redness and itching. Respiratory: Negative for chest tightness, shortness of breath and wheezing. Cardiovascular: Negative for chest pain and leg swelling. Gastrointestinal: Negative for abdominal pain, constipation, diarrhea, nausea and vomiting. Genitourinary: Negative for difficulty urinating, dysuria, frequency and urgency. Musculoskeletal: Negative for back pain, neck pain and stiffness. Skin: Positive for wound (left dorsal hand swelling and abrasions, right hand abrasion, no swelling). Negative for rash. Allergic/Immunologic: Negative for environmental allergies and food allergies. Neurological: Negative for dizziness, weakness and headaches. Physical Exam ED Triage Vitals Temp Pulse Resp BP SpO2 -- -- -- -- -- Temp src Heart Rate Source Patient Position BP Location FiO2 (%) -- -- -- -- -- Physical Exam Constitutional: He is oriented to person, place, and time. He appears well- developed and well-nourished. HENT: Head: Normocephalic and atraumatic. Mouth/Throat: Oropharynx is clear and moist. Eyes: Conjunctivae and EOM are normal. Neck: Normal range of motion. Neck supple. Cardiovascular: Normal rate, regular rhythm and normal heart sounds. No murmur heard. Pulmonary/Chest: Effort normal and breath sounds normal. No respiratory distress. Abdominal: Soft. There is no tenderness. Musculoskeletal: Normal range of motion. He exhibits no edema. Neurological: He is alert and oriented to person, place, and time. Skin: Skin is warm and dry. Capillary refill takes less than 2 seconds. No rash noted. Psychiatric: He has a normal mood and affect. His behavior is normal. Nursing note and vitals reviewed. ED Course & MDM MDM Cellulitis of left hand excluding fingers and thumb Keesha Madrigal NP 08/12/17 [id number] Cosigned by Augusto Hernandez DO at 08/13/2017 7:51 PM SPA ATTENDANT ATTENDANT ATTENDANT documented in this encounter Plan of Treatment Not on file documented as of this encounter Visit Diagnoses Diagnosis Cellulitis of left hand excluding fingers and thumb- Primary documented in this encounter Care Teams Derrick Boat Captain Relationship Specialty Start Date End Date Wesley Em MD PCP - General 09/30/16 12/01/21 documented as of this encounter
--- OUTSIDE RECORDS SUMMARY | 2024-06-18 18:14 | XMS_ITS | Encounter Summary ---
Author Organization [facility] Healthcare Address [address] [place] [address] Care Team Providers Care Event Marketing Coordinator Name Role Phone Wesley Em MD Primary Care Provider [phone] Encounter Details Date Type Department Care Team (Late st Contact Info) Description 10/06/2017 2:25 PM CDT Lab [address] [address] Type 2 diabetes mellitus without complication, without long-term current use of insulin (CMS/HCC); Essential hypertension; Mixed hyperlipidemia Social History Tobacco Use Types Packs/Day Years Used Date Smoking Tobacco: Former Smokeless Tobacco: Never Alcohol Use Standard Drinks/Week Comments No 0 (1 standard drink = 0.6 oz pur e alcohol) Sex and Gender Information Value Date Recorded Sex Assigned at Not on file 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 Gender Identity Not on file Sexual Orientation Straight 01/23/2021 10 :16 PM CDT documented as of this encounter Plan of Treatment Not on file documented as of this encounter Procedures Procedure Name Priority Date/Time Associated Diagnosis Comments EGFR Routine 10/06/2017 7:09 AM CDT Type 2 diabetes mellitus without complication, without long-term current use of insulin (CMS/HCC) DIFFERENTIAL AUTO Routine 10/06/2017 7:0 9 AM CDT Essential hypertension LIPID PANEL WITH REFLEX TO DIRECT LDL Routine 10/06/2017 7:09 AM CDT Mixed hyperlipidemia URINALYSIS AND REFLEX TO MICROSCOPIC AND CULTURE Routine 10/06/2017 7:09 AM CDT Essential hypertension ALBUMIN, RANDOM URINE WITHOUT CREATININE Routine 10/06/2017 7:09 AM CDT Type 2 diabetes mellitus without complication, without long-term current use of insulin (CMS/HCC) CBC WITH AUTO DIFFERENTIAL Routine 10/06/2017 7:09 AM CDT Essential hypertension URINALYSIS, MICROSCOPIC ONLY Routine 10/06/2017 7:09 AM CDT Essential hypertension HEMOGLOBIN A1C Routine 10/06/2017 7:09 AM CDT Type 2 diabetes mellitus without complication, without long-term current use of insulin ([facility]) COMPREHENSIVE METABOLIC PANEL Routine 10/06/2017 7:09 AM CDT Type 2 diabetes mellitus without complication, without long-term current use of insulin ([facility]) documented in this encounter Results * eGFR (10/06/2017 7:09 AM CDT) [facility] eGFR 55 mL/min/1.7 3 m2 [facility] Comment: Interpretive Data Reference Interval Normal ?>/= 90 mL/min/1.73m2 Mildly decreased* ? 60 - 89 mL/min/1.73m2 Mildly to moderately decreased ?45 - 59 mL/min/1.73m2 Moderately to severely decreased ??30 - 44 mL/min/1.73m2 Severely decreased ?15 - 29 mL/min/1.73m2 Kidney Failure ?< 15 ??mL/min/1.73m2 *Relative to young adult level If -Italian multiply value by 1.16. Estimated glomerular filtration [...] was last reviewed 2016. Blood specimen (specimen) 10/06/2017 7:09 AM CDT 10/06/2017 4:25 PM CDT Narrative [facility] - 10/06/2017 4:51 PM CDT Wesley Em MD LAB BLOOD ORDERABLES Final Res ult Performing Organization Address [facility] de Phone Number [facility] [id number] [place] [place] [address] * (ABNORMAL) Urinalysis, microscopic only (10/06/2017 7:09 AM CDT) RBC, ur 2 0 - 3 /HPF [facility] WBC, ur <1 0 - 5 /HPF [facility] Bacteria, ur 0 [facility] Epithelial cells, renal, ur 0 0 - 0 /HPF [facility] Calcium oxalate crystals, ur 2(H) 0 - 0 /HPF [facility] Urine 10/06/2017 7:09 AM CDT 10/06/2017 2:39 PM CDT Narrative [facility] - 10/06/2017 3:50 PM CDT Wesley Em MD LAB URINE ORDERABLES Final Res ult Performing Organization Address [facility] Co de Phone Number [facility] [address] [address] Department [place] [address] * (ABNORMAL) Differential, auto (10/06/2017 7:09 AM CDT) Neutrophil pct 55.8 % [facility] Imm gran pct 0.3 % [facility] Lymphocyte pct 25.8 % [facility] Monocyte pct 11.6 % [facility] Eosinophil pct 0.3 % [facility] Basophil pct 1.9 % [facility] Neutrophil abs 4.13 1.70 - 6.50 K/cumm [facility] Imm gran abs 0.02 0.00 - 0.10 K/cumm [facility] Lymphocyte abs 1.91 0.80 - 3.30 K/cumm [facility] Monocyte abs 0.86(H) 0.20 - 0.80 K/cumm [facility] Eosinophil abs 0.34 0.00 - 0.50 K/cumm [facility] Basophil abs 0.14(H) 0.00 - 0.10 K/cumm [facility] Blood specimen (specimen) 10/06/2017 7:09 AM CDT 10/06/2017 2:39 PM CDT Narrative [facility] - 10/06/2017 4:19 PM CDT us Wesley Em MD LAB BLOOD ORDERABLES Final Res ult [facility] [address] Department [place] [address] * (ABNORMAL) Lipid panel with reflex to direct LDL (10/06/2017 7:09 AM CDT) Cholesterol 120 100 - 200 mg/dL [facility] Comment: Interpretive Data Desirable: ?<200 mg/dL Borderline high: ??200-239 mg/dL High: ? >240 mg/dL Current interpretive data was last revised on 2016. Triglycerides 146 10 - 150 mg/dL [facility] Comment: Interpretive Data Desirable: ? < 150 ? mg/dL Borderline High: ? 150 - 199 mg/dL High: ?200 - 499 mg/dL Very High: ? > or = 499 ??mg/dL Current interpretive data was last revised on 2016. HDL 32(L) 40 - 59 mg/dL [facility] Comment: Interpretive Data Less than 40 mg/dL - Low; A major risk factor for heart disease. Greater than or equal to 60 mg/dL - High; ??Considered protective of heart disease. Current interpretive data was last revised on 2016. LDL, calculated 59(L) 60 - 129 mg/dL [facility] Comment: Interpretive Data Optimal: ? < 100 mg/dL Near Optimal: ?100 - 129 mg/dL Borderline High: ?? 130 - 159 mg/dL High: ?> 160 mg/dL Current interpretive data was last revised on 2016. Chol/HDL ratio 4 mg/dL [facility] Blood specimen (specimen) 10/06/2017 7:09 AM CDT 10/06/2017 2:39 PM CDT Narrative [facility] - 10/06/2017 4:51 PM CDT Wesley Em MD LAB BLOOD ORDERABLES Final Res ult [facility] [address] Department of Laboratories [place] [id number] * (ABNORMAL) Microalbumin, urine, random (10/06/2017 7:09 AM CDT) Microalbumin, ur 327.0(H) 0.0 - 29.9 mcg/mL [facility] Creatinine, ur 92.46 mg/dL [facility] Microalbumin/crea t ratio 353.7(H) 0.0 - 29.9 mcg/mg Cr [facility] Comment: Interpretive Data Normal: ?< 30 mcg/mg Microalbuminuria: ?30 - 300 mcg/mg Clinical Albuminuria: ? 300 mcg/mg Current interpretive data was last reviewed 2015 Urine 10/06/2017 7:09 AM CDT 10/06/2017 2:39 PM CDT Narrative [facility] - 10/06/2017 4:31 PM CDT Wesley Em MD LAB URINE ORDERABLES Final Res ult Performing Organization Address [facility] Co de Phone Number [facility] [address] Department [place] [address] * (ABNORMAL) Hemoglobin A1c (10/06/2017 7:09 AM CDT) Hgb A1C 6.1(H) 4.0 - 6.0 % [facility] Comment: Interpretive Data Hemoglobin A1c ADA Interpretive Guidelines ??<7% ?? Glycemia controlled ??>8% ?? Hyperglycemia, additional action recommended Estrada Immunochemical Method Current interpretive data was last revised on 2015 [facility] [place] [address] Estimated Average Glucose 128 mg/dL [facility] Comment:Testing performed by : [facility], [place] [address] Blood specimen (specimen) 10/06/2017 7:09 AM CDT 10/06/2017 6:21 PM CDT Narrative [facility] - 10/06/2017 7:40 PM CDT us Wesley Em MD LAB BLOOD ORDERABLES Final Res ult Performing Organization Address [facility] de Phone Number [facility] [address] Department [place] [address] * (ABNORMAL) Urinalysis reflex to microscopic and culture (10/06/2017 7:09 AM CDT) Color, ur Yellow [facility] Clarity, ur Clear [facility] Specific gravity, ur 1.011 1.001 - 1.033 [facility] pH, ur 6.0 5.0 - 8.0 [facility] Protein, ur ql 1+(A) Negative [facility] Glucose, ur ql Negative Negative [facility] Ketones, ur Negative Negative [facility] Bilirubin, ur Negative Negative [facility] Blood, ur 1+(A) Negative [facility] Urobilinogen, ur <2.0 <2.0 [facility] Nitrites, ur Negative Negative [facility] Leukocyte esterase, ur Negative Negative [facility] Urine 10/06/2017 7:09 AM CDT 10/06/2017 2:39 PM CDT Narrative [facility] - 10/06/2017 3:27 PM CDT Wesley Em MD LAB MICROBIOLOGY - GENERAL ORD ERABLES Final Result Performing Organization Address [facility] Co de Phone Number [facility] [address] Department of [employer] [place], [place] [id number] * (ABNORMAL) CBC with auto differential (10/06/2017 7:09 AM CDT) WBC 7.40 3.80 - 9.90 K/cumm [facility] RBC 5.68 4.30 - 5.80 M/cumm [facility] Hgb 15.9 13.0 - 17.5 g/dL [facility] Hct 49.7 38.9 - 50.3 % [facility] MCV 87.5 81.3 - 96.4 fL [facility] MCH 28.0 27.1 - 33.3 pg [facility] MCHC 32.0(L) 32.3 - 35.7 g/dL [facility] RDW CV 14.0 11.1 - 14.9 % [facility] RDW SD 44.4 35.7 - 48.1 fL [facility] Plt 190 150 - 400 K/cumm [facility] MPV 11.3 9.1 - 12.3 fL [facility] NRBC abs 0.00 0.00 - 0.01 K/cumm [facility] Blood specimen (specimen) 10/06/2017 7:09 AM CDT 10/06/2017 2:39 PM CDT Narrative [facility] - 10/06/2017 4:19 PM CDT Wesley Em MD LAB BLOOD ORDERABLES Final Res ult Performing Organization Address City/[facility]/ZIP Co de Phone Number [facility] [address] Department [place] [address] * (ABNORMAL) Comprehensive metabolic panel (10/06/2017 7:09 AM CDT) Sodium 139 135 - 145 mmol/L [facility] Potassium, pl 3.5 3.5 - 5.1 mmol/L [facility] CO2 27 22 - 32 mmol/L [facility] BUN 25(H) 8 - 24 mg/dL [facility] Glucose 112 70 - 199 mg/dL [facility] Comment: [...] Current interpretive data was last revised 2017. Creatinine 1.31 0.70 - 1.40 mg/dL [facility] Calcium 8.7 8.4 - 10.5 mg/dL [facility] Chloride 104 100 - 114 mmol/L [facility] Albumin 3.8 3.2 - 4.8 g/dL [facility] AST 23 7 - 40 Units/L [facility] ALT 23 5 - 50 Units/L [facility] Alk phos 92 30 - 110 Units/L [facility] Bilirubin, total 0.30 0.10 - 1.30 mg/dL [facility] Protein, pl 6.2 6.0 - 8.3 g/dL [facility] Anion gap 12 8 - 16 mmol/L [facility] Blood specimen (specimen) 10/06/2017 7:09 AM CDT 10/06/2017 2:39 PM CDT Narrative [facility] - 10/06/2017 4:51 PM CDT Wesley Em MD LAB BLOOD ORDERABLES Final Res ult [facility] [id number] Department [place] [address] documented in this encounter Visit Diagnoses Diagnosis Type 2 diabetes mellitus without complication, without long-term current use of insulin (CMS/HCC) (HCC) Essential hypertension Unspecified essential hypertension Mixed hyperlipidemia documented in this encounter Care Teams Event Marketing Coordinator Relationship Specialty Start Date End Date Wesley Em MD PCP - General 09/30/16 12/01/21 documented as of this encounter
--- OUTSIDE RECORDS SUMMARY | 2024-06-18 18:14 | XMS_ITS | Encounter Summary ---
Author Organization [facility] Healthcare Address [address] [place] [address] Care Team Providers Care Utility System Repairer Name Role Phone Wesley Em MD Primary Care Provider [phone] Encounter Details Date Type Department Care Team (Late st Contact Info) Description 01/09/2018 8:49 AM CDT Anesthesia Event [facility] [address] [place] [address] [place] [address] [facility] [address] [place] [address] Maggy Milian MD PhD [address] [place] [address] Anesthesia Record Procedure Summary Procedure Name Responsible Anesthesiologist Anesthesia Start Time Anesthesia Stop Time COLON REMOVAL SNARE Katy Richard MD 01/09/18 0849 01/09/18 0910 Events Date Time Event Comment 01/09/2018 0737 0847 In Room 0849 An Start 0849 An Start Data 0849 Start Supplemental O2 0849 Patient Positioned Laterally 0849 An Induction The patient was reevaluated immediately before moderate or deep sedation use and before anesthesia induction. 0849 Anesthesia Ready 0855 Proc Start 0910 an stop data 0910 An Stop 0910 an stop data 0911 Proc Fin 0913 Handoff to RN I completed my handoff to the receiving nurse during which we: 1. Patient identified 2. Responsible provider identified 3. Pertinent medical history reviewed 4. Procedure type and surgical course discussed 5. Intraoperative anesthetic management and any significant issues discussed 6. Expectations and concerns for postop period discussed 7. Questions solicited from receiving nurse 8. Patient disposition at the time of handoff: No value filed. 0918 Out of Room Meds Name Total lidocaine (cardiac) syringe 2 % 40 mg propofol 190 mg sodium chloride 0.9% infusion 0 mL * Agents Name O2 * Blood No blood administrations on file. Lines, Drains, and Airways Type Details Placement Removal Peripheral IV Placement Date: 12/18; Placement Time: 0742; Catheter Size: 20 G; Orientation: Right; Location: Forearm; Site Prep: Chlorhexidine; Inserted by: jessie Cm student nurse; Insertion Attempts: 1; Patient Tolerance: Tolerated well; Removal Date: 05/07/19; Removal Reason: Removed by unknown clinician (Comment) 09/05/17 0742 by Alia Treviño RN 05/07/19 0000 by Ratna Fried NP Peripheral IV Placement Date: 12/31 ; Placement Time: 0733; Catheter Size: 20 G; Orientation: Right; Location: Hand; Site Prep: Chlorhexidine; Technique: Anatomical landmarks; Inserted by: maria antonia davalos; Insertion Attempts: 1; Patient Tolerance: Tolerated well; Removal Date: 01/09/18; Removal Time: 1010 01/09/18 0733 by Alia Treviño RN 01/09/18 1010 by Alia Treviño, SUE documented in this encounter Social History Tobacco Use Types Packs/Day Years Used Date Smoking Tobacco: Former Smokeless Tobacco: Never Alcohol Use Standard Drinks/Week Comments No 0 (1 standard drink = 0.6 oz pur e alcohol) Sex and Gender Information Value Date Recorded Sex Assigned at Not on file 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 Gender Identity Not on file Sexual Orientation Straight 01/23/2021 10 :16 PM CDT documented as of this encounter OR Notes * Anesthesia Postprocedure Evaluation - Katy Richard MD - 01/09/2018 9:13 AM CDT Patient: Villa Zuniga Procedure Summary Date: 01/09/18 Room / Location: [facility] / [facility] Anesthesia Start: 0849 Anesthesia Stop: 909 Procedures: COLON REMOVAL SNARE (N/A ) Endo Add On Colon Biopsy (N/A ) Diagnosis: (COLONOSCOPY SCREENING) Provider: Albert Craft MD Responsible Provider: Katy Richard MD Anesthesia Type: MAC ASA Status: 3 BP 141/85 Pulse 73 Temp 36.5 ??C (97.7 ??F) (Temporal) Resp 20 Ht 176.5 cm (5' 9.5 ) Wt 89.8 kg (198 lb) SpO2 96% BMI 28.82 kg/m?? Anesthesia Type: MAC Last vitals BP Temp Pulse Resp SpO2 Anesthesia Post Evaluation Patient location during evaluation: PACU Patient participation: complete - patient participated Level of consciousness: fully awake Pain management: satisfactory to patient Airway patency: adequate Anesthetic complications: no Cardiovascular status: acceptable Respiratory status: acceptable Hydration status: acceptable Pt is: normothermic Nausea/Vomiting status: none * Anesthesia Preprocedure Evaluation - Maggy Milian MD PhD - 01/09/2018 7:36 AM CDT Anesthesia Evaluation Villa Zuniga is a 72 y.o. male Procedure(s): Colonoscopy HISTORY Past Medical History Cardiovascular + Hypertension + CAD Respiratory + COPD Gastrointestinal + GERD Renal / + Renal disease Endocrine / Other + Diabetes mellitus Functional Capacity Functional capacity: 4-6 METs Patient Active Problem List Diagnosis ??? Hyperlipidemia ??? BPH with urinary obstruction ??? Essential hypertension ??? Kidney stones ??? Mayo's esophagus with dysplasia ??? Sensorineural hearing loss, bilateral ??? Bladder stones ??? 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 Chronic GERD ??? Type 2 diabetes mellitus with hyperlipidemia (CMS/HCC) Past Medical History: Diagnosis Date ??? Mayo [...] 2012 Heart stents: [facility] Allergies Allergen Reactions ??? Apple ??? Ciprofloxacin Rash Reaction: RASH, Reaction: Rash, HOME MEDICATIONS : aspirin 81 mg tablet atorvastatin (LIPITOR) 40 mg tablet clopidogrel (PLAVIX) 75 mg tablet finasteride (PROSCAR) 5 mg tablet metoprolol XL (TOPROL-XL) 25 mg 24 hr tablet potassium citrate ER (UROCIT-K) 10 mEq (1,080 mg) CR tablet raNITIdine (ZANTAC) 300 mg tablet tamsulosin (FLOMAX) 0.4 mg capsule,extended release 24hr raNITIdine (ZANTAC) 300 mg tablet Current Facility-Administered Medications: ??? ondansetron (ZOFRAN) injection 4 mg, 4 mg, intravenous, Q30 Min PRN ??? sodium chloride 0.9% flush 0.5-20 mL, 0.5-20 mL, intra-catheter, PRN ??? sodium chloride 0.9% infusion, 30 mL/hr, intravenous, Continuous, Last Rate: 30 mL/hr at 01/09/18 0734, 30 mL/hr at 01/09/18 0734 ??? sodium chloride 0.9% infusion, 125 mL/hr, [...] Father Alzheimer's Disease; PAT Physical Exam Vitals: 01/09/18 0711 BP: 141/85 Pulse: 73 Resp: 20 Temp: 36.5 ??C (97.7 ??F) SpO2: 96% PT: No results found for requested labs [...] for requested labs within last 720 hours. DOS Physical Exam Medical history, medications, and allergies reviewed. Attestation: I endorse the findings of the anesthesia pre-evaluation assessment dated: 01/09/2018. Airway Exam: Mallampati: III Cervical ROM: FROM TM distance: normal Jaw ROM: full Cardiovascular Exam: Rate: regular Rhythm: regular Pulmonary Exam: LCTA, bilat EENT Exam: trachea midline Skin Exam: Skin is warm. Turgor is normal. Current state: Patient's current state is cooperative and interactive. Anesthesia Plan ASA 3 Planned anesthesia: MAC Induction: Induction: intravenous. Postoperative Plan: No plan for postoperative opioid use. No postoperative mechanical ventilation intended. Patient's planned disposition post procedure is Outpatient. Informed Consent: Discussed plan with SHELL FISHERMAN. Anesthesia plan and risks discussed with patient. Consent and Attending signature: I and/or my designee have discussed the anesthesia plan, benefits, possible alternatives, parental presence at time of induction (if indicated), and clinically relevant risks that may include dental injury, unintentional awareness, and/or other complications. The patient and/or parent/legal guardian understand, and agree to proceed. All questions answered. documented in this encounter Plan of Treatment Not on file documented as of this encounter Visit Diagnoses Not on filedocumented in this encounter Administered Medications Inactive Administered Medications - up to 3 most recent administrations Medication Order MAR Action Action Date Dose Rate Site lidocaine (cardiac) (XYLOCAINE) preservative free injection intravenous, As needed, Starting on Mon01/09/18 at 0849, Anesthesia Intra-op, Indications: Ventricular ArrhythmiasIndications:Ventricular Arrhythmias Given 01/09/2018 8:49 AM CDT 40 mg propofol (DIPRIVAN) IV intravenous, As needed, Starting on Mon01/09/18 at 0849, Anesthesia Intra-op Given 01/09/2018 9:06 AM CDT 40 mg Given 01/09/2018 8:55 AM CDT 50 mg Given 01/09/2018 8:49 AM CDT 100 mg sodium chloride 0.9% infusion 125 mL/hr, intravenous, Continuous, Starting on Mon01/09/18 at 0745, Recovery (GI) New Bag 01/09/2018 8:47 AM CDT documented in this encounter Care Teams Utility System Repairer Relationship Specialty Start Date End Date Wesley Em MD PCP - General 09/30/16 12/01/21 documented as of this encounter
--- OUTSIDE RECORDS SUMMARY | 2024-06-18 18:14 | XMS_ITS | Encounter Summary ---
Author Organization [facility] Healthcare Address [address] [place] [address] Care Team Providers Care Heel Former Name Role Phone Wesley Em MD Primary Care Provider [phone] Encounter Details Date Type Department Care Team (Latest Contact Info) Description 01/11/2018 12:50 PM CDT Hospital Encounter [facility] OP Simon Bucio MD [address] [address] Calculus of kidney Social History Tobacco Use Types Packs/Day Years Used Date Smoking Tobacco: Former Smokeless Tobacco: Never Alcohol Use Standard Drinks/Week Comments No 0 (1 standard drink = 0.6 oz pur e alcohol) Sex and Gender Information Value Date Recorded Sex Assigned at Not on file 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 THIS IS AN ELECTRONICALLY VERIFIED FINAL REPORT 01/12/2018 8:04 AM - Electronically signed by Wade Reid M.D. WM: D: ??01/12/2018 8:04 AM T: ??01/12/2018 8:04 AM Report ID: [id number] Reading Location: ??[id number] [EOD] Narrative 01/12/2018 8:08 AM CDT EXAM DESCRIPTION: ??Abdomen 1 View REASON FOR STUDY: ??PT HAD LITHOTRIPSY 4 MOS AGO, PASSED MULTIPLE STONES AT, THAT TIME, ??NO CURRENT PROBLEMS TECHNIQUE: ??Supine radiographic view of the abdomen acquired. COMPARISON: ??10/04/2017 FINDINGS: BOWEL GAS PATTERN: Scattered non-dilated small bowel loops. Nonobstructive pattern. SOFT TISSUES: No significant abnormal calcifications. BONES: No significant abnormality. OTHER: No other significant finding. Procedure Note Provider, MD Wilian - 11/18/2020 EXAM DESCRIPTION: Abdomen 1 View REASON FOR STUDY: PT HAD LITHOTRIPSY 4 MOS AGO, PASSED MULTIPLE STONESAT, THAT TIME, NO CURRENT PROBLEMS TECHNIQUE: Supine radiographic view of the abdomen acquired. COMPARISON: 10/04/2017 FINDINGS: BOWEL GAS PATTERN: Scattered non-dilated small bowel loops. Nonobstructive pattern. SOFT TISSUES: No significant abnormal calcifications. BONES: No significant abnormality. OTHER: No other significant finding. IMPRESSION: No acute findings. THIS IS AN ELECTRONICALLY VERIFIED FINAL REPORT 01/12/2018 8:04 AM - Electronically signed by Wade Reid M.D. WM: Report ID: [id number] Reading Location: [place] [address] [EOD] Simon Bucio MD IMG XR PROCEDURES Iwona l Result documented in this encounter Visit Diagnoses Diagnosis Calculus of kidney documented in this encounter Care Teams Heel Former Relationship Specialty Start Date End Date Wesley Em MD PCP - General 09/30/16 12/01/21 documented as of this encounter
--- OUTSIDE RECORDS SUMMARY | 2024-06-18 18:14 | XMS_ITS | Encounter Summary ---
Author Organization [facility] Healthcare Address [address] [place] [address] Care Team Providers Care Automatic Presser Name Role Phone Wesley Em MD Primary Care Provider [phone] Encounter Details Date Type Department Care Team (Late st Contact Info) Description 10/03/2017 10:30 AM CDT Lab [facility] [address] [facility] [address] [place] [id number] Familial polycythemia Social History Tobacco Use Types Packs/Day Years Used Date Smoking Tobacco: Former Smokeless Tobacco: Never Alcohol Use Standard Drinks/Week Comments No 0 (1 standard drink = 0.6 oz pur e alcohol) Sex and Gender Information Value Date Recorded Sex Assigned at Not on file 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 Gender Identity Not on file Sexual Orientation Straight 01/23/2021 10 :16 PM CDT documented as of this encounter Last Filed Vital Signs Vital Sign Reading Time Taken Comments Blood Pressure 163/85 10/03/2017 10:28 AM CDT Pulse 70 10/03/2017 10:28 AM CDT Temperature 36 ??C (96.8 ??F) 10/03/2017 10:28 AM CDT Respiratory Rate - - Oxygen Saturation 96% 10/03/2017 10:28 AM CDT Inhaled Oxygen Concentration - - Weight 88.3 kg (194 lb 9.6 oz) 10/03/2017 10:28 AM CDT Height 169.5 cm (5' 6.73 ) 10/03/2017 10:28 AM C DT Body Mass Index 30.72 10/03/2017 10:28 AM CDT documented in this encounter Plan of Treatment Not on file documented as of this encounter Procedures Procedure Name Priority Date/Time Associated Diagnosis Comments CBC, [facility] POINT OF CARE Routine 10/03/2017 10:30 AM CDT Familial polycythemia EGFR Routine 10/03/2017 10:30 AM CDT Familial polycythemia COMPREHENSIVE METABOLIC PANEL Routine 10/03/2017 10:30 AM CDT Familial polycythemia documented in this encounter Results * eGFR (10/03/2017 10:30 AM CDT) eGFR >60 mL/min/1.7 3 m2 [facility] ([facility]) Comment: Interpretive Data Reference Interval Normal ?>/= 90 mL/min/1.73m2 Mildly decreased* ? 60 - 89 mL/min/1.73m2 Mildly to moderately decreased ?45 - 59 mL/min/1.73m2 Moderately to severely decreased ??30 - 44 mL/min/1.73m2 Severely decreased ?15 - 29 mL/min/1.73m2 Kidney Failure ?< 15 ??mL/min/1.73m2 *Relative to young adult level If -Angolan multiply value by 1.16. Estimated glomerular filtration [...] was last reviewed 2016. Blood specimen (specimen) 10/03/2017 10:30 AM CDT 10/03/2017 12:30 PM CDT Narrative [facility] ([facility]) - 10/03/2017 1:04 PM CDT us Lee Pierre MD LAB BLOOD ORDERABLES F inal Result [facility] ([facility]) 1 [facility] Department [place] [address] * Comprehensive metabolic panel (10/03/2017 10:30 AM CDT) Sodium 142 135 - 145 mmol/L [facility] ([place]) Potassium, pl 3.9 3.3 - 4.9 mmol/L [facility] ([place]) CO2 24 22 - 32 mmol/L [facility] ([place]) BUN 24 8 - 25 mg/dL [facility] ([place]) Glucose 112 70 - 199 mg/dL [facility] ([place]) [...] interpretive data was last revised 2017. Creatinine 0.99 0.80 - 1.30 mg/dL [facility] ([place]) Calcium 8.9 8.5 - 10.3 mg/dL [facility] ([place]) Chloride 105 97 - 110 mmol/L [facility] ([place]) Albumin 4.0 3.5 - 5.0 g/dL [facility] ([place]) AST 15 10 - 50 Units/L [facility] ([place]) ALT 17 7 - 55 Units/L [facility] ([place]) Alk phos 103 40 - 130 Units/L [facility] ([place]) Bilirubin, total 0.5 0.1 - 1.2 mg/dL [facility] ([place]) Protein, pl 6.6 6.5 - 8.5 g/dL [facility] ([facility]) Anion gap 13 2 - 15 mmol/L [facility] ([facility]) Blood specimen (specimen) 10/03/2017 10:30 AM CDT 10/03/2017 12:30 PM CDT Narrative [facility] ([facility]) - 10/03/2017 1:04 PM CDT Lee Pierre MD LAB BLOOD ORDERABLES F inal Result [facility] 1 [facility] [place] [address] * CBC, [facility] Point of Care (10/03/2017 10:30 AM CDT) WBC, POC 6.45 3.80 - 9.80 K/cumm [facility] ([place]) RBC, POC 5.62 4.50 - 5.70 M/cumm [facility] ([place]) Hgb, POC 15.7 13.8 - 17.2 g/dL [facility] ([place]) Hct, POC 46.9 40.7 - 50.3 % [facility] MCV, POC 83.5 80.0 - 100.0 fL [facility] ([place]) MCH, POC 27.9 26.7 - 33.7 pg [facility] ([place]) MCHC, POC 33.5 32.7 - 36.0 g/dL [facility] Platelets, POC 177 140 - 440 K/cumm [facility] ([place]) MPV, POC 10.3 8.0 - 12.0 fL [facility] ([place]) Neutrophil abs 3.96 1.60 - 7.00 K/cumm [facility] ([facility]) Blood specimen (specimen) 10/03/2017 10:30 AM CDT 10/03/2017 10:34 AM CDT Narrative [facility] ([facility]) - 10/03/2017 10:37 AM CDT Lee Pierre MD LAB BLOOD ORDERABLES F inal Result [facility] ([place]) 1 [facility] Department [place] [address] documented in this encounter Visit Diagnoses Diagnosis Familial polycythemia documented in this encounter Care Teams Automatic Presser Relationship Specialty Start Date End Date Wesley Em MD PCP - General 09/30/16 12/01/21 documented as of this encounter
--- OUTSIDE RECORDS SUMMARY | 2024-06-18 18:14 | XMS_ITS | Encounter Summary ---
Author Organization [facility] Healthcare Address [address] [place] [address] Care Team Providers Care Mini Baccarat Dealer Name Role Phone Wesley Em MD Primary Care Provider [phone] Encounter Details Date Type Department Care Team (Late st Contact Info) Description 07/07/2017 8:00 PM COUNT ROOM CLERK Lab [address] [address] Polycythemia Social History Tobacco Use Types Packs/Day Years Used Date Smoking Tobacco: Former Smokeless Tobacco: Never Alcohol Use Standard Drinks/Week Comments No 0 (1 standard drink = 0.6 oz pur e alcohol) Sex and Gender Information Value Date Recorded Sex Assigned at Not on file Legal Sex Male 6:00 PM COUNT ROOM CLERK Gender Identity Not on file Sexual Orientation Straight 01/23/2021 10 :16 PM CDT documented as of this encounter Plan of Treatment Not on file documented as of this encounter Procedures Procedure Name Priority Date/Time Associated Diagnosis Comments DIFFERENTIAL AUTO Routine 07/07/2017 3:4 1 PM COUNT ROOM CLERK Polycythemia CBC WITH AUTO DIFFERENTIAL Routine 07/07/2017 3:41 PM COUNT ROOM CLERK Polycythemia documented in this encounter Results * (ABNORMAL) Differential, auto (07/07/2017 3:41 PM COUNT ROOM CLERK) Neutrophil pct 69.4 % [facility] Imm gran pct 0.6 % [facility] Lymphocyte pct 17.0 % [facility] Monocyte pct 8.7 % [facility] Eosinophil pct 0.2 % [facility] Basophil pct 1.9 % [facility] Neutrophil abs 5.50 1.70 - 6.50 K/cumm [facility] Imm gran abs 0.05 0.00 - 0.10 K/cumm [facility] Lymphocyte abs 1.35 0.80 - 3.30 K/cumm [facility] Monocyte abs 0.69 0.20 - 0.80 K/cumm [facility] Eosinophil abs 0.19 0.00 - 0.50 K/cumm [facility] Basophil abs 0.15(H) 0.00 - 0.10 K/cumm [facility] Blood specimen (specimen) 07/07/2017 3:41 PM COUNT ROOM CLERK 07/07/2017 7:59 PM COUNT ROOM CLERK Narrative [facility] - 07/07/2017 8:37 PM COUNT ROOM CLERK Sheela Adam NP LAB BLOOD ORDERABLE S Final Result [facility] [address] [address] Department [place] [address] * (ABNORMAL) CBC with auto differential (07/07/2017 3:41 PM COUNT ROOM CLERK) WBC 7.93 3.80 - 9.90 K/cumm [facility] RBC 5.30 4.30 - 5.80 M/cumm [facility] Hgb 14.4 13.0 - 17.5 g/dL [facility] Hct 45.6 38.9 - 50.3 % [facility] MCV 86.0 81.3 - 96.4 fL [facility] MCH 27.2 27.1 - 33.3 pg [facility] MCHC 31.6(L) 32.3 - 35.7 g/dL [facility] RDW CV 14.7 11.1 - 14.9 % [facility] RDW SD 45.8 35.7 - 48.1 fL [facility] Plt 236 150 - 400 K/cumm [facility] MPV 11.2 9.1 - 12.3 fL [facility] NRBC 0.0 0.0 - 0.2 % [facility] NRBC abs 0.00 0.00 - 0.01 K/cumm [facility] Blood specimen (specimen) 07/07/2017 3:41 PM COUNT ROOM CLERK 07/07/2017 7:59 PM COUNT ROOM CLERK Narrative [facility] - 07/07/2017 8:37 PM COUNT ROOM CLERK Sheela Adam NP LAB BLOOD ORDERABLE S Final Result [facility] [address] Department [place] [address] documented in this encounter Visit Diagnoses Diagnosis Polycythemia Polycythemia, secondary documented in this encounter Care Teams Mini Baccarat Dealer Relationship Specialty Start Date End Date Wesley Em MD PCP - General 09/30/16 12/01/21 documented as of this encounter
--- OUTSIDE RECORDS SUMMARY | 2024-06-18 18:14 | XMS_ITS | Encounter Summary ---
Author Organization [facility] Healthcare Address [address] [place] [address] Care Team Providers Care Gas Plant Worker Name Role Phone Wesley Em MD Primary Care Provider [phone] Encounter Details Date Type Department Care Team (Latest Contact Info) Description 01/09/2018 6:55 AM CDT - 01/09/2018 10:24 AM CDT Hospital Encounter [facility] [address] [place] [address] Albert Craft MD [address] [place], [place] [id number] Colon cancer screening Discharge Disposition: Discharge to home or self care Social History Tobacco Use Types Packs/Day Years Used Date Smoking Tobacco: Former Smokeless Tobacco: Never Alcohol Use Standard Drinks/Week Comments No 0 (1 standard drink = 0.6 oz pur e alcohol) Sex and Gender Information Value Date Recorded Sex Assigned at Not on file Legal Sex Male 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 Gender Identity Not on file Sexual Orientation Straight 01/23/2021 10 :16 PM CDT documented as of this encounter Last Filed Vital Signs Vital Sign Reading Time Taken Comments Blood Pressure 140/75 01/09/2018 9:55 AM CDT Pulse 65 01/09/2018 9:55 AM CDT Temperature 36.7 ??C (98 ??F) 01/09/2018 9:55 AM CDT Respiratory Rate 18 01/09/2018 9:55 AM CDT Oxygen Saturation 100% 01/09/2018 9:55 AM CDT Inhaled Oxygen Concentration - - [...] - 01/09/2018 8:46 AM CDTAssociated Order(s): COLONOSCOPY [facility] Patient Name: Villa Alston Procedure Date: 01/09/2018 8:46 AM Date of : 1945 Admit Type: Outpatient Age: 72 Gender: Male Attending MD: Albert Craft MD Room: [facility] ENDOSCOPY CAPSULE Note Status: Finalized Patient Profile: [...] under direct vision. The Pediatric Colonoscope PCF-H190L [id number] was introduced through the anus and advanced [...] 8:46 AM Procedure Code(s): --- Professional --- 95811, Colonoscopy, flexible; with removal of tumor(s), polyp(s), or other lesion(s) by snare technique 56262, 59, Colonoscopy, flexible; with biopsy, single or multiple Diagnosis Code(s): --- Professional --- Z12.11, Encounter for screening for malignant neoplasm of colon D12.0, Benign neoplasm of cecum D12.2, Benign neoplasm of ascending colon D12.4, Benign neoplasm of descending colon K64.8, Other hemorrhoids CPT copyright 2017 [employer]. All rights reserved. The codes documented in this report are preliminary and upon supervisor loading review may be revised to meet current compliance requirements. Recognized by the [place] [employer] for promoting quality [...] PM CDT Narrative 01/10/2018 10:39 AM CDT [facility] results best viewed via link to PDF [facility] Department of Pathology [address] [place] [id number] Final Report Patient Name: ??VILLA ALSTON SR Address: [address] ??[place], [place] [address] Gender: ??M : ??1945 (Age: 72) Service: ??Gastro Location: [facility] #: ??[id number] Patient Type: ??[facility] SDS Accession # ?[id number] Taken: ??01/09/2018 Received: ??01/09/2018 Accessioned: ??01/09/2018 Reported: [...] is submitted in three containers labeled Villa Pruittrob SR . A. ??The first container is [...] determined by the Surgical Pathology Department at [facility] as part of an ongoing quality assurance monitor final program and in compliance with federally mandated [...] characteristics determined by the Surgical Pathology Department [facility]. ??It has not been cleared or approved by the U. S. Food and Drug Administration. Albert Craft MD LAB PATHOLOGY ORDERABLES F inal Result * COLONOSCOPY (01/09/2018 8:46 AM CDT) Anatomical Region Laterality Modality Other Narrative Procedure Note Albert Craft MD - 01/09/2018 8:[address] [facility] Patient Name: Villa Alston Procedure Date: 01/09/2018 8:46 AM Date of : 1945 Admit Type: Outpatient Age: 72 Gender: Male Attending MD: Albert Craft MD Room: [facility] ENDOSCOPY CAPSULE Note Status: Finalized Patient Profile: [...] passed under direct vision.The Pediatric Colonoscope PCF-H190L [id number] was introduced through the anus and advanced [...] 8:46 AM Procedure Code(s): --- Professional --- 98738, Colonoscopy, flexible; with removal of tumor(s), polyp(s), or other lesion(s) by snare technique 60554, 59, Colonoscopy, flexible; with biopsy, single or multiple Diagnosis Code(s): --- Professional --- Z12.11, Encounter for screening for malignant neoplasm of colon D12.0, Benign neoplasm of cecum D12.2, Benign neoplasm of ascending colon D12.4, Benign neoplasm of descending colon K64.8, Other hemorrhoids CPT copyright 2017 [employer]. All rights reserved. The codes documented in this report are preliminary and upon supervisor loading reviewmay be revised to meet current compliance requirements. Recognized by the [place] for promoting quality in endoscopy Albert Craft MD ENDOSCOPY PROCEDURES Final Result documented in this encounter Visit Diagnoses Diagnosis Colon cancer screening Special screening for malignant neoplasms, colon documented in this encounter Administered Medications Inactive [...] 01/09 sodium chloride 0.9% flush 0.5-20 mL 12/31 sodium chloride 0.9% infusion 1 01/09/2018 Lab Orders Without Results Count Last Ordered D ate First Ordered Date SURGICAL PATHOLOGY 1 01/09/2018 documented in this encounter Care Teams Gas Plant Worker Relationship Specialty Start Date End Date Wesley Em MD PCP - General 09/30/16 12/01/21 documented as of this encounter
--- OUTSIDE RECORDS SUMMARY | 2024-06-18 18:14 | XMS_ITS | Encounter Summary ---
Author Organization [facility] Medical Group Address [address] [place] [address] Care Team Providers Care Hydraulic Miner Blasting Name Role Phone Wesley Em MD Primary Care Provider [phone] Reason for Visit * Reason Comments Medicare Wellness subsequent Forms/questionnaires bharath rahman Encounter Details Date Type Department Care Team (Late st Contact Info) Description 2017 11:30 AM CDT Office Visit [facility] [address] [facility] [facility] [address] [place] [address] Wesley Em MD [address] [place] [id number] Medicare annual wellness visit, subsequent (Primary Dx); BMI 31.0-31.9,adult; 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 (CMS/HCC); Chronic GERD; Type 2 diabetes mellitus with hyperlipidemia ([facility]/HCC); Essential hypertension; BPH with urinary obstruction; Kidney stones; Mixed hyperlipidemia Social History Tobacco Use Types Packs/Day Years Used Date Smoking Tobacco: Former Smokeless Tobacco: Never Alcohol Use Standard Drinks/Week Comments No 0 (1 standard drink = 0.6 oz pur e alcohol) Sex and Gender Information Value Date Recorded Sex Assigned at Not on file Legal Sex Male 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 Gender Identity Not on file Sexual Orientation Straight 01/23/2021 10 :16 PM CDT documented as of this encounter Last Filed Vital Signs Vital Sign Reading Time Taken Comments Blood Pressure 142/80 2017 11:44 AM CDT Pulse 60 2017 11:44 AM CDT Temperature - - Respiratory Rate 20 2017 11:44 AM CDT Oxygen Saturation - - Inhaled Oxygen Concentration - - Weight 88.9 kg (196 lb) 2017 11:44 AM CDT Height 168.9 cm (5' 6.5 ) 2017 11:44 AM CD T Body Mass Index 31.16 2017 11:44 AM CDT documented in this encounter Progress Notes * Martha Sutton MA - 2017 11:30 AM CDT Subjective/Objective Patient ID: Villa Zuniga is a 72 y.o. male. Chief Complaint Medicare Wellness (subsequent) HPI Review of Systems Physical Exam Feet: Right Foot: Monofilament exam normal. Left Foot: Monofilament exam normal. Assessment/Plan There are no diagnoses linked to this encounter. * Wesley Em MD - 2017 11:30 AM CDT Subjective/Objective Patient ID: Villa Zuniga is a 72 y.o. male. Chief Complaint Medicare Wellness (subsequent) and Forms/questionnaires (placrd, home stead) HPI [age] old gentleman seen today with his . He has some forms of BP filled out he getsa handicap sticker for his car because he has had bilateral knee replacements got terrible arthritis stills difficult to walk uses a cane occasional use a walker is that the history of coronary disease with 3 stents he sees his strip winder just doctor as rec every 6 months he follows up with Dr. Bucio his urologist is contemplating doing a TURP on him he does have history of kidney stones bladder stones but he states that his last workup on that revealed they were all gone but does get up frequency of the and despite taking Proscar and Flomax he may have to have surgery his PSAs are done by Dr. Bucio his urologist he had a colonoscopy in July 2006 due back 2017 he states he had EGD last month with his GI doctor Dr. 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 kaveh maria the patient quit smoking cigarettes in 2008 but does have a 40 pack year history does do a low-dose CT scan yearly through [address] scan was done 2 months ago looked okay did not show any COPD emphysema states he does not using inhalers he quit smoking in 2008 feels fine Allergies possibly to Cipro which may cause rash possible apple unknown reaction tobacco none [id number] but 40 pack year history alcohol none Immunizations patient declines all immunizations risk benefits of these vaccines were discussed with at length he still refuses Medical surgical hypertension hyperlipidemia coronary disease with stent placement 2012 diabetes controlled with diet exercise tobacco abuse history bilateral total knee surgeries bilateral carpal tunnel release BPH with obstructive since symptoms Family social accompanied by his retired grown children retired when he was 63 from [employer] he worked there for 40 years Review [...] ideation hematological no bleeding or bruising Vitals: 10/20/17 1144 BP: 142/80 BP Location: Left arm Patient Position: Sitting Pulse: 60 Resp: 20 Weight: 88.9 kg (196 lb) Height: 168.9 cm (5' 6.5 ) Physical Exam HEAD: normocephalic and atraumatic [...] spleen there is no bruits or masses MALE: normal testicles no hernias or adenopathy good sphincter tone no rectal mass prostate within normal limits with out nodule stools negative for occult blood EXTREMITIES: no edema or cyanosis with good pulses throughout full range of motion throughout NEURO : cranial nerves 2-12 were intact muscle strength is 5 5 throughout DTRs are 2/4 throughout toe signs are downgoing gait normal SKIN no suspicious lesions ecchymosis or petechiae Assessment/Plan Diagnoses and all orders for this visit: Medicare annual wellness visit, subsequent (Primary) BMI 31.0-31.9,adult He is going to try to cut back on his diet little bit exercise little bit more but his knees reallyslowing down quite a bit almost make it impossible for him to do a type exercise on a regular basis 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 on a regular basis cut out salt tried lose little weight BPH with urinary obstruction Will follow up with Urology regarding repeat examinations and PSAs Kidney stones High fluid intake recommended Mixed hyperlipidemia Continue current therapy Side effects, risks, interactions reviewed with patient. 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
--- OUTSIDE RECORDS SUMMARY | 2024-06-18 18:14 | XMS_ITS | Encounter Summary ---
Author Organization [facility] Medical Group Address [address] [place] [address] Care Team Providers Care Laser Machine Operator Name Role Phone Wesley Em MD Primary Care Provider [phone] Encounter Details Date Type Department Care Team (Late st Contact Info) Description 10/06/2017 7:15 AM CDT Lab [facility] [address] [place] [address] [address] [place] [phone] Type 2 diabetes mellitus without complication, without long-term current use of insulin (CMS/HCC) Social History Tobacco Use Types Packs/Day Years Used Date Smoking Tobacco: Former Smokeless Tobacco: Never Alcohol Use Standard Drinks/Week Comments No 0 (1 standard drink = 0.6 oz pur e alcohol) Sex and Gender Information Value Date Recorded Sex Assigned at Not on file Legal Sex Male 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
--- OUTSIDE RECORDS SUMMARY | 2024-06-18 18:14 | XMS_ITS | Encounter Summary ---
Author Organization [facility] Healthcare Address [address] [place] [address] Care Team Providers Care Coin Purse Framer Name Role Phone Wesley Em MD Primary Care Provider [phone] Encounter Details Date Type Department Care Team (Late st Contact Info) Description 10/03/2017 10:45 AM CDT Office Visit [facility] [address] [place] [address] Lee Pierre MD [facility] MEDICAL [address] [address] Polycythemia (Primary Dx) Social History Tobacco Use Types Packs/Day Years Used Date Smoking Tobacco: Former Smokeless Tobacco: Never Alcohol Use Standard Drinks/Week Comments No 0 (1 standard drink = 0.6 oz pur e alcohol) Sex and Gender Information Value Date Recorded Sex Assigned at Not on file Legal Sex Male 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 HPI: Patient feels well and has no complaints. Past Medical History: Diagnosis Date ??? Mayo [...] Heart stents: [facility] October/October (Not in a hospital admission) Current Outpatient Prescriptions Medication Sig Dispense Refill ??? aspirin 81 mg tablet Take one by mouth one time per day 0 0 ??? atorvastatin (LIPITOR) 40 mg tablet take 1 tablet by oral route every day 90 3 ??? clopidogrel (PLAVIX) 75 mg tablet TAKE ONE TABLET BY MOUTH EVERY DAY 90 2 ??? finasteride (PROSCAR) 5 mg tablet TAKE ONE TABLET BY MOUTH EVERY DAY 90 tablet 3 ??? metoprolol (LOPRESSOR) 25 mg tablet Take 1 tablet (25 mg total) by mouth 2 (two) times a day. 60 tablet 11 ??? potassium citrate ER (UROCIT-K) 10 mEq (1,080 mg) CR tablet take 1 tablet by oral route 2 timesevery day 0 0 ??? raNITIdine (ZANTAC) 300 mg tablet take 1 tablet by oral route bid 180 3 ??? tamsulosin (FLOMAX) 0.4 mg capsule,extended release 24hr TAKE ONE CAPSULE BY MOUTH EVERY DAY 90capsule 3 No current facility-administered medications for this visit. Allergies Allergen Reactions ??? Apple ??? Ciprofloxacin Rash Reaction: RASH, Reaction: Rash, Social History Social History ??? Marital status: Spouse name: N/A ??? Number of children: N/A ??? Years of education: N/A Social History Main Topics ??? Smoking status: Former Smoker ??? Smokeless tobacco: Never Used ??? Alcohol use No ??? Drug use: No ??? Sexual activity: Not on file Other Topics Concern ??? Caffeine Yes 16 oz coffee soda /day Social History Narrative ??? No narrative on file Family History Problem Relation Age of Onset ??? Hypertension Mother Hypertension; ??? Heart disease Mother Heart disease; ??? Diabetes Mother Diabetes mellitus; ??? Stroke Mother 66 Stroke; ??? Cancer Mother Cancer; ??? Alzheimer's disease Father Alzheimer's Disease; REVIEW OF SYSTEMS: Review of Systems Constitutional: Negative for activity change, appetite change, chills, diaphoresis, fatigue, fever and unexpected weight change. HENT: Negative for ear pain, hearing loss, mouth sores, nosebleeds, sore throat, trouble swallowingand voice change. Eyes: Negative for discharge, redness and visual disturbance. Respiratory: Negative for cough, chest tightness, shortness of breath and wheezing. Cardiovascular: Negative for chest pain and leg swelling. Gastrointestinal: Negative for abdominal pain, blood in stool, constipation, diarrhea, nausea and vomiting. Endocrine: Negative for cold intolerance and heat intolerance. Genitourinary: Negative for dysuria, flank pain, frequency, hematuria and urgency. Musculoskeletal: Negative for arthralgias, joint swelling and myalgias. Skin: Negative for rash and wound. Neurological: Negative for dizziness, tremors, numbness and headaches. Hematological: Negative for adenopathy. Does not bruise/bleed easily. Psychiatric/Behavioral: Negative for confusion and sleep disturbance. The patient is not nervous/anxious. PHYSICAL EXAM: Vitals: Most Recent : BP: 163/85 Temp: 36 ??C (96.8 ??F) Temp src: Tympanic Pulse: 70 SpO2: 96 % Height: 169.5 cm (5' 6.73 ) Weight: 88.3 kg (194 lb 9.6 oz) ECO Physical Exam Constitutional: He is oriented to person, place, and time. He appears well- developed and well-nourished. No distress. HENT: Nose: Nose normal. Mouth/Throat: Oropharynx is clear and moist. Eyes: Pupils are equal, round, and reactive to light. No scleral icterus. Neck: Neck supple. Cardiovascular: Normal rate, regular rhythm and normal heart sounds. No murmur heard. Pulmonary/Chest: Effort normal and breath sounds normal. No respiratory distress. He has no wheezes. He has no rales. Abdominal: Soft. Bowel sounds are normal. He exhibits no distension and no mass. There is no tenderness. There is no guarding. Musculoskeletal: He exhibits no edema or tenderness. Lymphadenopathy: He has no cervical adenopathy. Neurological: He is alert and oriented to person, place, and time. Skin: Skin is warm. No rash noted. Psychiatric: He has a normal mood and affect. His behavior is normal. Judgment and thought content normal. LAB/RADIOLOGY/DIAGNOSTIC REVIEW: Laboratory review: Lab results in the last 24 hours: Recent Results (from the past 24 hour(s)) CBC, ON LICENSE OF [facility] Point of Care Collection Time: 10/03/17 10:30 AM Result Value Ref Range WBC, POC 6.45 3.80 - 9.80 K/cumm RBC, POC 5.62 4.50 - 5.70 M/cumm Hgb, POC 15.7 13.8 - 17.2 g/dL Hct, POC 46.9 40.7 - 50.3 % MCV, POC 83.5 80.0 - 100.0 fL MCH, POC 27.9 26.7 - 33.7 pg MCHC, POC 33.5 32.7 - 36.0 g/dL Platelets, POC 177 140 - 440 K/cumm MPV, POC 10.3 8.0 - 12.0 fL Neutrophils, abs 3.96 1.60 - 7.00 K/cumm ASSESSMENT/PLAN: 1. Polycythemia in this patient who used to be a smoker of 1 pack per day starting at 14 years of age but quit 2008. Patient last had a phlebotomy on 02/02/2017, as ordered by Dr. Hoskins, and these were discontinued since then. JAK2 V617F and JAK2 Exon 12 mutations were both negative. Erythropoietin level was elevated in 07/2012. All of the previous is against a diagnosis of polycythemia vera. Walking pulse ox was 98% on room air and carboxyhemoglobin was normal. 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 It is unclear to me what it was secondary to. CBC has been normal since at least 2012. Patient can be discharged from Hematology Clinic. 2. Return for followup on an as-needed basis. documented in this encounter Plan of Treatment Not on file documented as of this encounter Visit Diagnoses Diagnosis Polycythemia- Primary Polycythemia, secondary documented in this encounter Care Teams Coin Purse Framer Relationship Specialty Start Date End Date Manav, Wesley D., MD PCP - General 09/30/16 12/01/21 documented as of this encounter
--- OUTSIDE RECORDS SUMMARY | 2024-06-18 18:14 | XMS_ITS | Encounter Summary ---
Author Organization [facility] Medical Group Address [address] [place] [address] Care Team Providers Care Sales Marketing Manager Name Role Phone Wesley Em MD Primary Care Provider [phone] Encounter Details Date Type Department Care Team (Late st Contact Info) Description 10/02/2017 Telephone [facility] [address] [address] Wesley Em MD [address] [place] [address] Social History Tobacco Use Types Packs/Day Years Used Date Smoking Tobacco: Former Smokeless Tobacco: Never Alcohol Use Standard Drinks/Week Comments No 0 (1 standard drink = 0.6 oz pur e alcohol) Sex and Gender Information Value Date Recorded Sex Assigned at Not on file Legal Sex Male 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 Gender Identity Not on file Sexual Orientation Straight 01/23/2021 10 :16 PM CDT documented as of this encounter Miscellaneous Notes * Telephone Encounter - Roselyn Wan CLT - 10/02/2017 3:15 PM CDT Added lipid to lab order * Telephone Encounter - Roselyn Wan CLT - 10/02/2017 3:15 PM CDT noted * Telephone Encounter - Stephanie Veliz MA - 10/02/2017 2:36 PM CDT To lab * Telephone Encounter - Wesley Em MD - 10/02/2017 2:19 PM CDT Yes * Telephone Encounter - Stephanie Veliz MA - 10/02/2017 1:36 PM CDT To jr * Telephone Encounter - Roselyn Wan CLT - 10/02/2017 12:59 PM CDT Per notes from check-out tab at last appt (04-18-17) Cbc,cmp,ua,a1c,and microalbumin are ordered. Does pt need lipid now? Next ov 10-20-17 please advise. documented in this encounter Plan of Treatment Not on file documented as of this encounter Visit Diagnoses Not on filedocumented in this encounter Care Teams Sales Marketing Manager Relationship Specialty Start Date End Date Wesley Em MD PCP - General 09/30/16 12/01/21 documented as of this encounter
--- OUTSIDE RECORDS SUMMARY | 2024-06-18 18:14 | XMS_ITS | Encounter Summary ---
Author Organization [facility] Address [address] [place] [address] Care Team Providers Care Head Of Data Name Role Phone Wesley Em MD Primary Care Provider [phone] Encounter Details Date Type Department Care Team (Late st Contact Info) Description 07/10/2017 Telephone [facility] [address] [address] Sheela Adam NP [address] [address] Social History Tobacco Use Types Packs/Day Years Used Date Smoking Tobacco: Former Smokeless Tobacco: Never Alcohol Use Standard Drinks/Week Comments No 0 (1 standard drink = 0.6 oz pur e alcohol) Sex and Gender Information Value Date Recorded Sex Assigned at Not on file Legal Sex Male 6:00 PM SEROLOGY TECHNICIAN Gender Identity Not on file Sexual Orientation Straight 01/23/2021 10 :16 PM CDT documented as of this encounter Miscellaneous Notes * Telephone Encounter - Tanisha Meraz - 07/11/2017 3:38 PM CST Pt notified LOGY TECHNICIAN * Telephone Encounter - Araseli Mckeon MA - 07/11/2017 9:04 AM CST lmom LOGY TECHNICIAN * Telephone Encounter - Sheela Adam NP - 07/10/2017 5:05 PM SEROLOGY TECHNICIAN Please tell patient I received radiologist's report on his x-rays. His tailbone is negative for fracture. His right great toe x-ray shows early arthritis changes but no acute fracture or dislocation.He should proceed with plan of care as discussed during his office visit. Thank you. LOGY TECHNICIAN * Telephone Encounter - Raven Subramanian - 07/10/2017 2:05 PM CST Pt ret call and was advised of mesg LOGY TECHNICIAN * Telephone Encounter - Whitney Orellana MA - 07/10/2017 1:39 PM CST lmom LOGY TECHNICIAN * Telephone Encounter - Sheela Adam NP - 07/10/2017 12:02 PM SEROLOGY TECHNICIAN Please tell patient the good news: His blood counts have returned nice and stable with a hemoglobinof 14.4 and hematocrit of 45.6. Also, please tell him I am awaiting the radiologist's report on hisx-rays. I will call as soon as these are received. Thank you. Hgb 13.0 - 17.5 g/dL 14.4 Hct 38.9 - 50.3 % 45.6 LOGY TECHNICIAN documented in this encounter Plan of Treatment Not on file documented as of this encounter Visit Diagnoses Not on filedocumented in this encounter Care Teams Head Of Data Relationship Specialty Start Date End Date Wesley Em MD PCP - General 09/30/16 12/01/21 documented as of this encounter
--- OUTSIDE RECORDS SUMMARY | 2024-06-18 18:14 | XMS_ITS | Encounter Summary ---
Author Organization [facility] [employer] [facility] Address [address] [place] [address] Phone Care Team Providers Care Vinyl Cutter Name Role Phone Wesley Em MD Primary Care Provider Tiny Ferreira MA Unavailable Trey Pinedo MD Unavailable [phone] Dorinda ChavezW Unavailable [phone] Christine Herzog MD Primary Care Provide r Albert Craft MD Unavailable [phone] Chintan Figueroa MD Unavailable [phone] Jameel Bloom DPM Unavailable [phone] Gadiel Genao MD Unavailable [phone] Sepideh Hi RN Unavailable Lexii Arnold MA Unavailable [phone] Walker CarvajalW Unavailable Unavailabl e Encounter Details Date Type Department Care Team (Late st Contact Info) Description 07/07/2017 Orders Only [facility] Provider, MD Wilian [facility] [place] [address] Social History Tobacco Use Types Packs/Day Years Used Date Smoking Tobacco: Former Smokeless Tobacco: Never Alcohol Use Standard Drinks/Week Comments No 0 (1 standard drink = 0.6 oz pur e alcohol) Sex and Gender Information Value Date Recorded Sex Assigned at Not on file Legal Sex Male 6:00 PM MIXED SIGNAL DESIGN ENGINEER Gender Identity Not on file Sexual Orientation Straight 01/23/2021 10 :16 PM CDT documented as of this encounter Plan of Treatment Not on file documented as of this encounter Procedures Procedure Name Priority Date/Time Associated Diagnosis Comments DISCHARGE LABORATORY CUMULATIVE REPORT 07/07/2017 12:00 AM MIXED SIGNAL DESIGN ENGINEER documented in this encounter Results * DISCHARGE LABORATORY CUMULATIVE REPORT (07/07/2017 12:00 AM MIXED SIGNAL DESIGN ENGINEER) Narrative 07/07/2017 12:00 AM MIXED SIGNAL DESIGN ENGINEER Ordered by an unspecified provider. us Historical Provider LAB BLOOD ORDERABLES Iwona l Result documented in this encounter Visit Diagnoses Not on filedocumented in this encounter Additional Health Concerns Infection Onset Date Last Indicated Resolved Time COVID: Suspected 12/08/2021 12/08/2021 12/08/2021 11:03 PM CDT COVID: Suspected 08/06/2022 08/06/2022 08/06/2022 1:19 AM MIXED SIGNAL DESIGN ENGINEER COVID19 Comment:Airborne + Contact precautions. Gown, Gloves, N95, eye protection or goggles. Precautions 08/16/22. Contact Cloth Printer Helper if patient worsens. SUE Baldwin 08/12/22 08/06/2022 08/06/2022 08/16/2022 3:[address] Coronavirus, contact + dropl et Comment:Negative for coronavirus 08/06/2022 08/06/2022 023 12:29 PM MIXED SIGNAL DESIGN ENGINEER COVID: Recovered Comment:Added based on recent COVID infection. 08/16/2022 08/17/2022 11/14/2022 3:05 AM C DT documented as of this encounter Care Teams Vinyl Cutter Relationship Specialty Start Date End Date Wesley Em MD PCP - General 3/31/17 6/1/22 Christine Herzog MD [address] [place] [address] PCP - General Internal Medicine 12/02/21 Tiny Ferreira MA [address] [place] [address] ACO Care Flux Tube Attendant 09/19/17 09/27/17 Trey Pinedo MD [address] [facility] [address] [address] Consulting Physician Neurology 05/09/19 Dorinda Chavez LCSW [address] [place] [address] Lap Regulator 12/30/20 01/26/21 Albert Craft MD [address] [facility] [facility] [address] [place] [address] Consulting Physician Gastroenterology 03/11/22 Chintan Figueroa MD [address] [facility] [facility] [address] [place] [address] Consulting Physician Hematology and Oncology 03/11/22 Jameel Bloom DPM [address] [place] [address] Consulting Physician Orthotics 03/11/22 Gadiel Genao MD [address] [place] [address] Surgeon Vascular Surgery 03/11/22 Sepideh Hi RN [address] [place] [address] [address] [place] [address] Yard Operator 08/12/22 09/01/22 Lexii Arnold MA [address] [place] [address] [address] [place] [address] ACO Care Flux Tube Attendant 09/19/22 09/20/22 Walker Carvajal LCSW [address] [place] [address] [address] [place] [address] Lap Regulator 09/27/22 09/27/22 documented as of this encounter
--- OUTSIDE RECORDS SUMMARY | 2024-06-18 18:14 | XMS_ITS | Encounter Summary ---
Author Organization [facility] Address [address] [place] [address] Care Team Providers Care Fabricator Foam Rubber Name Role Phone Wesley Em MD Primary Care Provider Encounter Details Date Type Department Care Team (Latest Contact Info) Description 10/04/2017 1:37 PM CDT Hospital Encounter [facility] OP Simon Bucio MD [address] [address] Calculus of kidney Social History Tobacco Use Types Packs/Day Years Used Date Smoking Tobacco: Former Smokeless Tobacco: Never Alcohol Use Standard Drinks/Week Comments No 0 (1 standard drink = 0.6 oz pur e alcohol) Sex and Gender Information Value Date Recorded Sex Assigned at Not on file Legal Sex Male 6:00 PM COMPUTER PROGRAMMER 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 ??The previously noted right-sided nephrolithiasis is no longer identified THIS IS AN ELECTRONICALLY VERIFIED FINAL REPORT 10/04/2017 2:00 PM - Electronically signed by Rosales Hernandez M.D. NC: RUTH D: ??10/04/2017 2:00 PM T: ??10/04/2017 2:00 PM Report ID: [id number] Reading Location: ??[id number] [EOD] Narrative 10/04/2017 2:03 PM CDT EXAM DESCRIPTION: ??Abdomen 1 View COMPLETED DATE/TIME: ??10/04/2017 1:55 pm REASON FOR STUDY: ??STATES HE HAS BEEN TAKING MEDS FOR 7 MON TO DISSOLVE BLADDER STONES, NO CURRENT COMPLAINTS COMPARISON: ??09/16/2016 TECHNIQUE: ??Supine radiographic view of the abdomen acquired. FINDINGS: BOWEL GAS PATTERN: Scattered non-dilated small bowel loops. Nonobstructive pattern. SOFT TISSUES: No significant abnormal calcifications. BONES: No significant abnormality. OTHER: No other significant finding. Procedure Note Provider, MD Wilian - 11/18/2020 EXAM DESCRIPTION: Abdomen 1 View COMPLETED DATE/TIME: 10/04/2017 1:55 pm REASON FOR STUDY: STATES HE HAS BEEN TAKING MEDS FOR 7 MON TO DISSOLVE BLADDER STONES, NO CURRENT COMPLAINTS COMPARISON: 09/16/2016 TECHNIQUE: Supine radiographic view of the abdomen acquired. FINDINGS: BOWEL GAS PATTERN: Scattered non-dilated small bowel loops. Nonobstructive pattern. SOFT TISSUES: No significant abnormal calcifications. BONES: No significant abnormality. OTHER: No other significant finding. IMPRESSION: No acute findings. The previously noted right-sided nephrolithiasis is no longer identified THIS IS AN ELECTRONICALLY VERIFIED FINAL REPORT 10/04/2017 2:00 PM - Electronically signed by Rosales Hernandez M.D. NC: RUTH Report ID: [id number] Reading Location: [id number] [EOD] us Simon Bucio MD IMG XR PROCEDURES Iwona l Result documented in this encounter Visit Diagnoses Diagnosis Calculus of kidney documented in this encounter Care Teams Fabricator Foam Rubber Relationship Specialty Start Date End Date Wesley Em MD PCP - General 09/30/16 12/01/21 documented as of this encounter
--- OUTSIDE RECORDS SUMMARY | 2024-06-18 18:14 | XMS_ITS | Encounter Summary ---
Author Organization [facility] Address [address] [place] [address] Care Team Providers Care Securities Settlement Processor Name Role Phone Wesley Em MD Primary Care Provider [phone] Tiny Ferreira MA Unavailable Trey Pinedo MD Unavailable [phone] Encounter Details Date Type Department Care Team (Late st Contact Info) Description 07/13/2017 Orders Only [facility] [place] Management [address] [place] [address] Scanning, Provider Social History Tobacco Use Types [...] on file Legal Sex Male 6:00 PM ISOLATION WASHER Gender Identity Not on file Sexual [...] Date/Time Associated Diagnosis Comments SCAN - RADIOLOGY/IMAGING 07/13/2017 8:53 AM ISOLATION WASHER documented in this encounter Results * SCAN - RADIOLOGY/IMAGING (07/13/2017 8:53 AM ISOLATION WASHER) Anatomical Region Laterality Modality Other us Provider Scanning Final Result documented in this encounter Visit Diagnoses Not on filedocumented in this encounter Care Teams Securities Settlement Processor Relationship Specialty Start Date End Date Wesley Em MD PCP - General 09/30/16 12/01/21 Tiny Ferreira, ELBERT [address] [place] [address] [place] [address] ACO Care Maintenance Job Titles 09/19/17 09/27/17 Trey Pinedo MD [address] [place] [address] [address] [place] [address] Consulting Physician Neurology 05/09/19 documented as of this encounter
--- OUTSIDE RECORDS SUMMARY | 2024-06-18 18:14 | XMS_ITS | Encounter Summary ---
Author Organization [facility] Address [address] [facility] [address] [place] [address] Care Team Providers Care Entry Processor Name Role Phone Wesley Em MD Primary Care Provider [phone] Reason for Visit * Reason Comments Follow-up cellulitis left hand Encounter Details Date Type Department Care Team (Late st Contact Info) Description 08/15/2017 8:15 AM CORRESPONDENCE SCHOOL TEACHER Office Visit [facility] [address] [facility] [address] [place] [address] Sheela Adam NP 2 [facility] [address] [place] [address] Cellulitis of hand, left (Primary Dx); Abrasion of hand, unspecified laterality, subsequent encounter; BMI 28.0-28.9,adult Social History Tobacco Use Types Packs/Day Years Used Date Smoking Tobacco: Former Smokeless Tobacco: Never Alcohol Use Standard Drinks/Week Comments No 0 (1 standard drink = 0.6 oz pur e alcohol) Sex and Gender Information Value Date Recorded Sex Assigned at Not on file Legal Sex Male 6:00 PM CORRESPONDENCE SCHOOL TEACHER Gender Identity Not on file Sexual Orientation Straight 01/23/2021 10 :16 PM CDT documented as of this encounter Last Filed Vital Signs Vital Sign Reading Time Taken Comments Blood Pressure 158/80 08/15/2017 8:18 AM CORRESPONDENCE SCHOOL TEACHER Pulse 60 08/15/2017 8:18 AM CORRESPONDENCE SCHOOL TEACHER Temperature 36.5 ??C (97.7 ??F) 08/15/2017 8:18 AM CS T Respiratory Rate 20 08/15/2017 8:18 AM CORRESPONDENCE SCHOOL TEACHER Oxygen Saturation - - Inhaled Oxygen Concentration - - Weight 88 kg (194 lb) 08/15/2017 8:18 AM CORRESPONDENCE SCHOOL TEACHER Height 175.3 cm (5' 9.02 ) 08/15/2017 8:18 AM CS T Body Mass Index 28.64 08/15/2017 8:18 AM CORRESPONDENCE SCHOOL TEACHER documented in this encounter Progress Notes * Sheela Adam, PARTS ANALYST - 08/15/2017 8:15 AM CST Subjective/Objective Patient ID: Villa Zuniga is a 71 y.o. male. Chief Complaint Follow-up (cellulitis left hand) Patient presents to the office today for follow-up. He is accompanied by his . [facility] on August 12, 2017. Patient presented with complaints of left hand pain and injury. He reported a fall a couple of weeks prior. About 3 days prior to that visit he reached in to grab something out from between the couch cushions. He sustained superficial abrasionson the back side of his hands bilaterally. He states he did not think too much of it until he woke up the morning of his ER visit and his hands were red swollen warm and tender. In the emergency roomhe was diagnosed with cellulitis and was given a 7 day course of Bactrim DS with instructions to take 1 by mouth twice daily for 10 days. Patient is pleased to report his swelling has significantly improved as has his redness and warmth. He states originally he was told he would receive a 10 day course of antibiotics but only received a 7 day course the directions on his pill bottles were unclearas it reported to take twice daily for 10 days but he only received 14 tablets. He returns today for close follow-up as directed. He denies any fever or chills. He denies any nausea, vomiting, diarrhea, or GI upset. He is tolerating his antibiotic without any ill side effect. He was also given topical Bactroban but states he did not use this. He says he became fearful of the medication after reading the package insert. He wanted to be sure I agreed with its use and that it was safe for him. Review of Systems Constitutional: Negative. Negative for [...] and light-headedness. Hematological: Negative. Psychiatric/Behavioral: Negative. Vitals: 08/15/17 0818 BP: 158/80 BP Location: Right arm Patient Position: Sitting Pulse: 60 Resp: 20 Temp: 36.5 ??C (97.7 ??F) TempSrc: Oral Weight: 88 kg (194 lb) Height: 175.3 cm (5' 9.02 ) Physical [...] Pulmonary/Chest: Effort normal and breath sounds normal. Abdominal: Soft. Bowel sounds are normal. Neurological: He is alert and oriented to person, place, and time. Skin: Skin is warm and dry. There are abrasions noted on the dorsal surface of the hands bilaterally. There is erythema and mild soft tissue swelling on the dorsal surface of the left hand. After review of the ER records this has improved fairly significantly from prior. There is no red streaking noted. No axillary adenopathy. No purulent discharge. Psychiatric: He has a normal mood and affect. His behavior is normal. Assessment/Plan Diagnoses and all orders for this visit: Cellulitis of hand, left (Primary) Assessment & Plan: Patient was encouraged to apply topical antibiotic ointment to sites of abrasions as directed in the ER. He will complete his antibiotic course as directed noting significant improvement since beginning. Patient has a 7 day supply of medication. I requested he return to the office on Monday for repeat assessment. We may extend antibiotic course at that time depending on his response to treatment.Both he and his verbalized understanding and were in agreement with the plan of care. Abrasion of hand, unspecified laterality, subsequent encounter Assessment & Plan: Patient was encouraged to apply topical Bactroban as directed. He was also encouraged to wash the area with antibacterial soap once to twice daily. Pat dry. And apply topical antibiotic ointment. He may covered with dressing as needed. He will return for repeat evaluation early next week. Certainlysooner with any change in or worsening of his condition. BMI 28.0-28.9,adult Disposition: We discussed dose, use, and potential side effects medication. Risks and interactions reviewed with patient. Indications for testing reviewed. Patient has been instructed to contact the office with any signs or symptoms that are of concern. The patient is to contact the office with anychange in, worsening, or non improvement in condition. Patient verbalized understanding. The patient was given the opportunity to ask all questions and to have all questions answered. Patient is in agreement with the plan of care. Sheela Adam NP *This office note was completed using [employer] ball worker neisha and may be subject to ball worker errors* Cosigned by Wesley Em MD at 08/15/2017 12:10 PM CORRESPONDENCE SCHOOL TEACHER ESPONDENCE SCHOOL TEACHER ESPONDENCE SCHOOL TEACHER documented in this encounter Miscellaneous Notes * Assessment & Plan Note - Sheela Adam NP - 08/15/2017 12:08 PM CSTAssociated Problem(s): Cellulitis of hand, left (Resolved 2017) Patient was encouraged to apply topical antibiotic ointment to sites of abrasions as directed in the ER. He will complete his antibiotic course as directed noting significant improvement since beginning. Patient has a 7 day supply of medication. I requested he return to the office on Monday for repeat assessment. We may extend antibiotic course at that time depending on his response to treatment.Both he and his verbalized understanding and were in agreement with the plan of care. ESPONDENCE SCHOOL TEACHER * Assessment & Plan Note - Sheela Adam NP - 08/15/2017 12:07 PM CSTAssociated Problem(s): Abrasion of hand (Resolved 08/21/2017) Patient was encouraged to apply topical Bactroban as directed. He was also encouraged to wash the area with antibacterial soap once to twice daily. Pat dry. And apply topical antibiotic ointment. He may covered with dressing as needed. He will return for repeat evaluation early next week. Certainlysooner with any change in or worsening of his condition. ESPONDENCE SCHOOL TEACHER documented in this encounter Plan of Treatment Not on file documented as of this encounter Visit Diagnoses Diagnosis Cellulitis of hand, left- Primary Abrasion of hand, unspecified laterality, subsequent encounter BMI 28.0-28.9,adult documented in this encounter Care Teams Entry Processor Relationship Specialty Start Date End Date Wesley Em MD PCP - General 09/30/16 12/01/21 documented as of this encounter
--- OUTSIDE RECORDS SUMMARY | 2024-06-18 18:14 | XMS_ITS | Encounter Summary ---
Author Organization [facility] Address [address] [facility] [address] [place] [address] Care Team Providers Care Hood Fitter Name Role Phone Wesley Em MD Primary Care Provider [phone] Trey Pinedo MD Unavailable [phone] Encounter Details Date Type Department Care Team (Late st Contact Info) Description 10/18/2017 Orders Only [facility] [place] [address] [place] [address] Scanning, Provider Social History Tobacco Use Types [...] Date/Time Associated Diagnosis Comments SCAN - RADIOLOGY/IMAGING 10/18/2017 4:04 AM CDT documented in this encounter Results * SCAN - RADIOLOGY/IMAGING (10/18/2017 4:04 AM CDT) Anatomical Region Laterality Modality Other us Provider Scanning Final Result documented in this encounter Visit Diagnoses Not on filedocumented in this encounter Care Teams Hood Fitter Relationship Specialty Start Date End Date Wesley Em MD PCP - General 09/30/16 12/01/21 Trey Pinedo MD [address] [place] [address] [address] Consulting Physician Neurology 05/09/19 documented as of this encounter
--- OUTSIDE RECORDS SUMMARY | 2024-06-18 18:15 | XMS_ITS | Encounter Summary ---
Author Organization [facility] Healthcare Address [address] [place] [address] Care Team Providers Care Instructor Of Spanish Name Role Phone Wesley Em MD Primary Care Provider [phone] Encounter Details Date Type Department Care Team (Late st Contact Info) Description 12/14/2016 12:00 PM CDT Lab [address] [address] Mixed hyperlipidemia; Disorder of prostate; Diabetes mellitus without complication (CMS/HCC) Social History Tobacco Use Types Packs/Day Years Used Date Smoking Tobacco: Former Alcohol Use Standard Drinks/Week Comments No 0 (1 standard drink = 0.6 oz pur e alcohol) Sex and Gender Information Value Date Recorded Sex Assigned at Not on file 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 Gender Identity Not on file Sexual Orientation Straight 01/23/2021 10 :16 PM CDT documented as of this encounter Plan of Treatment Not on file documented as of this encounter Procedures Procedure Name Priority Date/Time Associated Diagnosis Comments EGFR Routine 12/14/2016 8:03 AM CDT DIFFERENTIAL AUTO Routine 12/14/2016 8:0 3 AM CDT URINALYSIS AND REFLEX TO MICROSCOPIC AND CULTURE Routine 12/14/2016 8:03 AM CDT Disorder of prostate ALBUMIN, RANDOM URINE WITHOUT CREATININE Routine 12/14/2016 8:03 AM CDT Diabetes mellitus without complication (CMS/HCC) CBC WITH AUTO DIFFERENTIAL Routine 12/14/2016 8:03 AM CDT Mixed hyperlipidemia URINALYSIS, MICROSCOPIC ONLY Routine 12/14/2016 8:03 AM CDT URINE CULTURE Routine 12/14/2016 8:03 AM CDT PSA DIAGNOSTIC Routine 12/14/2016 8:03 AM CDT Disorder of prostate HEMOGLOBIN A1C Routine 12/14/2016 8:03 AM CDT Diabetes mellitus without complication (CMS/HCC) LIPID PANEL Routine 12/14/2016 8:03 AM CDT Mixed hyperlipidemia COMPREHENSIVE METABOLIC PANEL Routine 12/14/2016 8:03 AM CDT Mixed hyperlipidemia documented in this encounter Results * Urine culture (12/14/2016 8:03 AM CDT) Report Final Report: Insignifican t growth based on current clinical standards. [facility] Comment:Testing performed by : [facility], [address] [place]., [address] Urine 12/14/2016 8:03 AM CDT 12/14/2016 5:42 PM CDT Narrative [facility] - 12/15/2016 10:52 AM CDT Received in transport media. us Wesley Em MD LAB MICROBIOLOGY - GENERAL ORD ERABLES Final Result [facility] [address] Department [place] [address] * (ABNORMAL) Urinalysis, microscopic (12/14/2016 8:03 AM CDT) RBC, ur 2 0 - 3 /HPF [facility] WBC, ur 45(H) 0 - 5 /HPF [facility] Bacteria, ur Trace [facility] Epithelial cells, renal, ur 0 0 - 0 /HPF [facility] Epithelial cells, squamous, ur <1 /LPF [facility] Mucus, ur Present [facility] Hyaline casts, ur 2(H) 0 - 0 /LPF [facility] Urine 12/14/2016 8:03 AM CDT 12/14/2016 12:27 PM CDT us Wesley Em MD LAB URINE ORDERABLES Final Res ult [facility] [address] Department [place] [address] * eGFR (12/14/2016 8:03 AM CDT) eGFR 61 mL/min/1.7 3 m2 [facility] Comment: Interpretive Data Reference Interval Normal ?>/= 90 mL/min/1.73m2 Mildly decreased* ? 60 - 89 mL/min/1.73m2 Mildly to moderately decreased ?45 - 59 mL/min/1.73m2 Moderately to severely decreased ??30 - 44 mL/min/1.73m2 Severely decreased ?15 - 29 mL/min/1.73m2 Kidney Failure ?< 15 ??mL/min/1.73m2 *Relative to young adult level If -Serbian multiply value by 1.16. Estimated glomerular filtration [...] was last reviewed 2016. Blood specimen (specimen) 12/14/2016 8:03 AM CDT 12/14/2016 12:35 PM CDT Wesley Em MD LAB BLOOD ORDERABLES Final Res ult Performing Organization Address [facility] [address] [facility] de Phone Number [facility] [address] Department [place] [address] * (ABNORMAL) Differential, auto (12/14/2016 8:03 AM CDT) Neutrophil pct 60.9 % [facility] Imm gran pct 0.3 % [facility] Lymphocyte pct 22.4 % [facility] Monocyte pct 9.6 % [facility] Eosinophil pct 0.3 % [facility] Basophil pct 2.1 % [facility] Neutrophil abs 3.85 1.70 - 6.50 K/cumm [facility] Imm gran abs 0.02 0.00 - 0.10 K/cumm [facility] Lymphocyte abs 1.42 0.80 - 3.30 K/cumm [facility] Monocyte abs 0.61 0.20 - 0.80 K/cumm [facility] Eosinophil abs 0.30 0.00 - 0.50 K/cumm [facility] Basophil abs 0.13(H) 0.00 - 0.10 K/cumm [facility] Blood specimen (specimen) 12/14/2016 8:03 AM CDT 12/14/2016 12:27 PM CDT Wesley Em MD LAB BLOOD ORDERABLES Final Res ult Performing Organization Address [facility] [address]/[facility] Co de Phone Number [facility] [address] Department [place] [address] * PSA diagnostic (12/14/2016 8:03 AM CDT) PSA-Total 3.26 0.10 - 4.00 ng/mL [facility] Blood specimen (specimen) 12/14/2016 8:03 AM CDT 12/14/2016 12:28 PM CDT Wesley Em MD LAB BLOOD ORDERABLES Final Res ult Performing Organization Address [facility] Phone Number [facility] [address] [facility] [place] [address] * (ABNORMAL) Microalbumin, urine, random (12/14/2016 8:03 AM CDT) Microalbumin, ur 175.0(H) 0.0 - 29.9 mcg/mL [facility] Creatinine, ur 261.28 mg/dL [facility] Microalbumin/crea t ratio 67.0(H) 0.0 - 29.9 mcg/mg Cr [facility] Comment:Interpretive Data No rmal: < 30 mcg/mg Microalbuminuria: 30 - 300 mcg/mg Clinical Albuminuria: 300 mcg/mg Current interpretive data was last reviewed 2015 Urine 12/14/2016 8:03 AM CDT 12/14/2016 12:27 PM CDT Wesley Em MD LAB URINE ORDERABLES Final Res ult Performing Organization Address [facility] Phone Number [facility] [id number] Department [place] [address] * Hemoglobin A1c (12/14/2016 8:03 AM CDT) Hgb A1C 5.9 4.0 - 6.0 % [facility] Comment: Interpretive Data Hemoglobin A1c ADA Interpretive Guidelines ?? <7% ?? Glycemia controlled ?? >8% ?? Hyperglycemia, additional action recommended Estrada Immunochemical Method Current interpretive data was last revised on 2015 Testing [facility] by: [facility] [place] [address] Estimated Average Glucose 123 mg/dL [facility] Comment:Testing performed by : [facility], [place] [address] Blood specimen (specimen) 12/14/2016 8:03 AM CDT 12/14/2016 6:13 PM CDT Wesley Em MD LAB BLOOD ORDERABLES Final Res ult Performing Organization Address [facility] [address]/ZIP Co de Phone Number [facility] [address] Department [place] [address] * (ABNORMAL) Lipid panel (12/14/2016 8:03 AM CDT) Cholesterol 119 100 - 200 mg/dL [facility] Comment:Interpretive Data De sirable: <200 mg/dL Borderline high: 200-239 mg/dL High: >240 mg/dL Current interpretive data was last revised on 2016. Triglycerides 107 10 - 150 mg/dL [facility] Comment:Interpretive Data De sirable: < 150 mg/dL Borderline High: 150 - 199 mg/dL High: 200 - 499 mg/dL Very High: > or = 499 mg/dL Current interpretive data was last revised on 2016. HDL 34(L) 40 - 59 mg/dL [facility] Comment:Interpretive Data Le ss than 40 mg/dL - Low; A major risk factor for heart disease. Greater than or equal to 60 mg/dL - High; Considered protective of heart disease. Current interpretive data was last revised on 2016. LDL, calculated 64 60 - 129 mg/dL [facility] Comment:Interpretive Data Op timal: < 100 mg/dL Near Optimal: 100 - 129 mg/dL Borderline High: 130 - 159 mg/dL High: > 160 mg/dL Current interpretive data was last revised on 2016. Non-HDL Cholesterol 85 mg/dL [facility] Comment:Interpretive Data Wh en triglycerides are >200 mg/dL, non-HDL C is a secondary target of therapy, with a goal 30 mg/dL higher than the identified LDL-C goal. Current interpretive data was last revised 2016. Blood specimen (specimen) 12/14/2016 8:03 AM CDT 12/14/2016 12:28 PM CDT us Wesley Em MD LAB BLOOD ORDERABLES Final Res ult [facility] [address] Department [place] [address] * (ABNORMAL) Urinalysis reflex to microscopic and culture (12/14/2016 8:03 AM CDT) Color, ur Yellow [facility] Clarity, ur Clear [facility] Specific gravity, ur 1.020 1.001 - 1.033 [facility] pH, ur 5.0 5.0 - 8.0 [facility] Protein, ur ql 2+(A) Negative [facility] Glucose, ur ql Negative Negative [facility] Ketones, ur Negative Negative [facility] Bilirubin, ur Negative Negative [facility] Blood, ur Negative Negative [facility] Urobilinogen, ur <2.0 <2.0 [facility] Nitrites, ur Negative Negative [facility] Leukocyte esterase, ur 3+(A) Negative [facility] Urine 12/14/2016 8:03 AM CDT 12/14/2016 12:27 PM CDT us Wesley Em MD LAB MICROBIOLOGY - GENERAL ORD ERABLES Final Result [facility] [address] Department [place] [address] * CBC with auto differential (12/14/2016 8:03 AM CDT) WBC 6.33 3.80 - 9.90 K/cumm [facility] RBC 4.88 4.30 - 5.80 M/cumm [facility] Hgb 14.2 13.0 - 17.5 g/dL [facility] Hct 43.5 38.9 - 50.3 % [facility] MCV 89.1 81.3 - 96.4 fL [facility] MCH 29.1 27.1 - 33.3 pg [facility] MCHC 32.6 32.3 - 35.7 g/dL [facility] RDW CV 13.5 11.1 - 14.9 % [facility] RDW SD 43.8 35.7 - 48.1 fL [facility] Plt 219 150 - 400 K/cumm [facility] MPV 10.8 9.1 - 12.3 fL [facility] NRBC 0.0 0.0 - 0.2 % [facility] NRBC abs 0.00 0.00 - 0.01 K/cumm [facility] Blood specimen (specimen) 12/14/2016 8:03 AM CDT 12/14/2016 12:27 PM CDT Wesley Em MD LAB BLOOD ORDERABLES Final Res ult [facility] [address] [place], [place] [id number] * Comprehensive metabolic panel (12/14/2016 8:03 AM CDT) Sodium 143 135 - 145 mmol/L [facility] Potassium, pl 3.6 3.5 - 5.1 mmol/L [facility] CO2 26 22 - 32 mmol/L [facility] BUN 20 8 - 24 mg/dL [facility] Glucose 115 70 - 199 mg/dL [facility] Creatinine 1.20 0.70 - 1.40 mg/dL [facility] Calcium 8.8 8.4 - 10.5 mg/dL [facility] Chloride 108 100 - 114 mmol/L [facility] Albumin 3.6 3.2 - 4.8 g/dL [facility] AST 12 7 - 40 Units/L [facility] ALT 12 5 - 50 Units/L [facility] Alk phos 89 30 - 110 Units/L [facility] Bilirubin, total 0.50 0.10 - 1.30 mg/dL [facility] Protein, pl 6.2 6.0 - 8.3 g/dL [facility] Anion gap 13 8 - 16 mmol/L [facility] Blood specimen (specimen) 12/14/2016 8:03 AM CDT 12/14/2016 12:28 PM CDT Wesley Em MD LAB BLOOD ORDERABLES Final Res ult [facility] [address] [place] [address] documented in this encounter Visit Diagnoses Diagnosis Mixed hyperlipidemia Disorder of prostate Unspecified disorder of prostate Diabetes mellitus without complication (CMS/HCC) (HCC) Type II or unspecified type diabetes mellitus without mention of complication, not stated as uncontrolled documented in this encounter Care Teams Instructor Of Spanish Relationship Specialty Start Date End Date Wesley Em MD PCP - General 09/30/16 12/01/21 documented as of this encounter
--- OUTSIDE RECORDS SUMMARY | 2024-06-18 18:15 | XMS_ITS | Encounter Summary ---
Author Organization [facility] Healthcare Address [address] [place] [address] Care Team Providers Care Education Rn Name Role Phone Wesley Em MD Primary Care Provider Encounter Details Date Type Department Care Team (Late st Contact Info) Description 02/22/2017 10:56 AM CDT - 02/22/2017 2:35 PM CDT Hospital Encounter [facility] INTERIM Albert Craft MD [address] [place] [address] Discharge Disposition: Discharge to home or self care Social History Tobacco Use Types Packs/Day Years Used Date Smoking Tobacco: Former Smokeless Tobacco: Never Alcohol Use Standard Drinks/Week Comments No 0 (1 standard drink = 0.6 oz pur e alcohol) Sex and Gender Information Value Date Recorded Sex Assigned at Not on file 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 Gender Identity Not on file Sexual [...] Date/Time Associated Diagnosis Comments SURGICAL PATHOLOGY Routine 02/22/2017 2: 10 PM CDT UPPER GASTROINTESTINAL ENDOSCOPY REPORT 02/22/2017 SURGICAL PATHOLOGY 02/22/2017 12 :00 AM CDT documented in this encounter Results * Surgical pathology (02/22/2017 2:10 PM CDT) 02/22/2017 2:10 PM CDT 02/22/2017 2:10 PM CDT Narrative 02/23/2017 2:58 PM CDT [facility] Department of Pathology [address] [place] [id number] Final Report ?Patient Name: VILLA ALSTON Address: [address] Service: Gastro ??[place], [place] Location: [facility] Taken: 02/22/2017 Gender: M Received 02/22/2017 : 1945 (Age: 71) Hospital #: [id number] Accessioned: 02/22/2017 ?? Patient Type: [facility] SDS Reported 02/23/2017 Physician(s): Dr. Albert Craft M.D. ?? 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 ?? Valentino Hilton M.D. ??Report Electronically Reviewed and Signed Out By ??Valentino Hilton M.D. ??02/23/2017 14:58:40 Specimen(s) Received: A: GE Junction, Biopsy Microscopic Description: Microscopic examination of the GE junction, examined multiple levels shows alterations consistent with Mayo's metaplasia. ??Sections consist of fragments of squamoglandular mucosa with a glandular component showing mild edema and nonspecific chronic inflammation as well as areas of intestinal-type metaplasia. ??The squamous component shows some minimal nonspecific reactive alterations while there is some minimal reactive glandular atypia, there is no evidence of dysplasia or malignancy. 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 ??On Zantac b.i.d. ??Clinically no symptoms. ??GE junction, biopsy, short segment erythema. ??Upper GI endoscopy. Gross Description: The specimen is labeled [place] SR and GE junction . ??It is four 3-4 mm pink-penny tissue fragments. ??Entirely submitted in one cassette. ??Brooklyn Ortiz M.D./Ricco Khan PA Complete report with images are only be viewable in the PDF report The performance characteristics of some immunohistochemical stains, fluorescence in-situ hybridization tests and immunophenotyping by flow cytometry cited in this report (if any) were determined by the Surgical Pathology Department at [facility] as part of an ongoing quality assurance auditor program and in compliance with federally mandated [...] characteristics determined by the Surgical Pathology Department [facility]. ??It has not been cleared or approved by the U. S. Food and Drug Administration. Albert Craft MD LAB PATHOLOGY ORDERABLES F inal Result * SURGICAL PATHOLOGY (02/22/2017 12:00 AM CDT) Narrative 02/22/2017 12:00 AM CDT Ordered by an unspecified provider. us Historical Provider LAB PATHOLOGY ORDERABLES Final Result * UPPER GASTROINTESTINAL ENDOSCOPY REPORT (02/22/2017) Anatomical Region Laterality Modality Other us Provider Scanning GI PROCEDURE ORDERABLES Final Result documented in this encounter Visit Diagnoses Not on filedocumented in this encounter Care Teams Education Rn Relationship Specialty Start Date End Date Wesley Em MD PCP - General 09/30/16 12/01/21 documented as of this encounter
--- OUTSIDE RECORDS SUMMARY | 2024-06-18 18:15 | XMS_ITS | Encounter Summary ---
Author Organization [facility] Healthcare Address [address] [place] [address] Care Team Providers Care Almond Paste Molder Name Role Phone Wesley Em MD Primary Care Provider [phone] Encounter Details Date Type Department Care Team (Late st Contact Info) Description 04/04/2017 4:35 PM CDT Lab [address] [address] Type 2 diabetes mellitus without complication, unspecified long-term insulin use status (CMS/HCC); Benign hypertension Social History Tobacco Use Types Packs/Day Years Used Date Smoking Tobacco: Former Smokeless Tobacco: Never Alcohol Use Standard Drinks/Week Comments No 0 (1 standard drink = 0.6 oz pur e alcohol) Sex and Gender Information Value Date Recorded Sex Assigned at Not on file 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 Gender Identity Not on file Sexual Orientation Straight 01/23/2021 10 :16 PM CDT documented as of this encounter Plan of Treatment Not on file documented as of this encounter Procedures Procedure Name Priority Date/Time Associated Diagnosis Comments EGFR Routine 04/04/2017 8:54 AM CDT Benign hypertension LIPID PANEL WITH REFLEX TO DIRECT LDL Routine 04/04/2017 8:54 AM CDT Benign hypertension HEMOGLOBIN A1C Routine 04/04/2017 8:54 AM CDT Type 2 diabetes mellitus without complication, unspecified long-term insulin use status (CMS/HCC) BASIC METABOLIC PANEL Routine 04/04/2017 8:54 AM CDT Benign hypertension documented in this encounter Results * eGFR (04/04/2017 8:54 AM CDT) Pathologist [facility] eGFR 53 mL/min/1.7 3 m2 [facility] Comment: Interpretive Data Reference Interval Normal ?>/= 90 mL/min/1.73m2 Mildly decreased* ? 60 - 89 mL/min/1.73m2 Mildly to moderately decreased ?45 - 59 mL/min/1.73m2 Moderately to severely decreased ??30 - 44 mL/min/1.73m2 Severely decreased ?15 - 29 mL/min/1.73m2 Kidney Failure ?< 15 ??mL/min/1.73m2 *Relative to young adult level If -Stateless multiply value by 1.16. Estimated glomerular filtration [...] was last reviewed 2016. Blood specimen (specimen) 04/04/2017 8:54 AM CDT 04/04/2017 5:00 PM CDT us Wesley Em MD LAB BLOOD ORDERABLES Final Res ult [facility] [address] Department [place] [address] * (ABNORMAL) Lipid panel with reflex to direct LDL (04/04/2017 8:54 AM CDT) Cholesterol 118 100 - 200 mg/dL [facility] Comment: Interpretive Data Desirable: ?<200 mg/dL Borderline high: ??200-239 mg/dL High: ? >240 mg/dL Current interpretive data was last revised on 2016. Triglycerides 109 10 - 150 mg/dL [facility] Comment: Interpretive Data Desirable: ? < 150 ? mg/dL Borderline High: ? 150 - 199 mg/dL High: ?200 - 499 mg/dL Very High: ? > or = 499 ??mg/dL Current interpretive data was last revised on 2016. HDL 35(L) 40 - 59 mg/dL [facility] Comment: Interpretive Data Less than 40 mg/dL - Low; A major risk factor for heart disease. Greater than or equal to 60 mg/dL - High; ??Considered protective of heart disease. Current interpretive data was last revised on 2016. LDL, calculated 61 60 - 129 mg/dL [facility] Comment: Interpretive Data Optimal: ? < 100 mg/dL Near Optimal: ?100 - 129 mg/dL Borderline High: ?? 130 - 159 mg/dL High: ?> 160 mg/dL Current interpretive data was last revised on 2016. Chol/HDL ratio 3 mg/dL [facility] Blood specimen (specimen) 04/04/2017 8:54 AM CDT 04/04/2017 4:15 PM CDT us Wesley Em MD LAB BLOOD ORDERABLES Final Res ult [facility] [address] [address] [place] [address] * (ABNORMAL) Basic metabolic panel (04/04/2017 8:54 AM CDT) Sodium 146(H) 135 - 145 mmol/L [facility] Potassium, pl 4.0 3.5 - 5.1 mmol/L [facility] Chloride 111 100 - 114 mmol/L [facility] CO2 27 22 - 32 mmol/L [facility] BUN 19 8 - 24 mg/dL [facility] Glucose 114 70 - 199 mg/dL [facility] Creatinine 1.34 0.70 - 1.40 mg/dL [facility] Calcium 9.0 8.4 - 10.5 mg/dL [facility] Anion gap 12 8 - 16 mmol/L [facility] Blood specimen (specimen) 04/04/2017 8:54 AM CDT 04/04/2017 4:15 PM CDT Wesley Em MD LAB BLOOD ORDERABLES Final Res ult Performing Organization Address [facility] de Phone Number [facility] [address] [place] [address] * (ABNORMAL) Hemoglobin A1c (04/04/2017 8:54 AM CDT) Hgb A1C 6.1(H) 4.0 - 6.0 % [facility] Comment: Interpretive Data Hemoglobin A1c ADA Interpretive Guidelines ??<7% ?? Glycemia controlled ??>8% ?? Hyperglycemia, additional action recommended Estrada Immunochemical Method Current interpretive data was last revised on 2015 Testing performed by: [facility], [place] [address] Estimated Average Glucose 128 mg/dL [facility] Comment:Testing performed by : [facility], [place] [address] Blood specimen (specimen) 04/04/2017 8:54 AM CDT 04/04/2017 7:37 PM CDT Wesley Em MD LAB BLOOD ORDERABLES Final Res ult Performing Organization Address 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
--- OUTSIDE RECORDS SUMMARY | 2024-06-18 18:15 | XMS_ITS | Encounter Summary ---
Author Organization [facility] Address [address] [place] [address] Care Team Providers Care Machine Pan Greaser Name Role Phone Wesley Em MD Primary Care Provider [phone] Reason for Visit * Reason Comments Hearing Loss AU Dizziness Noise Exposure machinery Encounter Details Date Type Department Care Team (Late st Contact Info) Description 04/26/2017 1:30 PM CDT Procedure visit [facility] [address] [place] [id number] Prema Epperson Au.D. 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 Hearing Loss AU ??? Dizziness ??? Noise Exposure machinery [id number] Headphones Otoscopy: Clear canals, TM visualized AU Tymps: WNL AU AU: WNL sloping to profound SNHL SRT: In good agreement w/ ACTIVITIES MANAGER AU WRS: Moderate difficulty AD ; Poor Rec: f/u ENT re: dizziness ; knot/lesion behind ear - HAE / ALD eval if desired - Annual or PRN audio - Hearing protection in noise CHU Ziegler documented in this encounter Plan of Treatment Not on file documented as of this encounter Procedures Procedure Name Priority Date/Time Associated Diagnosis Comments AUDIOGRAM Routine 04/26/2017 1:30 PM CDT Sensorineural hearing loss, bilateral Dizziness and giddiness documented in this encounter Results * AUDIOGRAM (04/26/2017 1:30 PM CDT) Narrative Prema Epperson AUD - 04/26/2017 1:30 PM CDT CHU Ziegler ? 04/26/2017 ??2:09 PM Audiogram Performed by: PREMA EPPERSON Authorized by: JEROD ESPINOZA Jerod Espinoza DO AUDIOLOGY SERVICES ORDERABLE S Final Result documented in this encounter Visit Diagnoses Diagnosis Sensorineural hearing loss, bilateral- Primary Dizziness and giddiness documented in this encounter Care Teams Machine Pan Greaser Relationship Specialty Start Date End Date Wesley Em MD PCP - General 09/30/16 12/01/21 documented as of this encounter
--- OUTSIDE RECORDS SUMMARY | 2024-06-18 18:15 | XMS_ITS | Encounter Summary ---
Author Organization [facility] Healthcare Address [address] [place] [address] Care Team Providers Care Director Product Safety Name Role Phone Wesley Em MD Primary Care Provider Encounter Details Date Type Department Care Team (Latest Contact Info) Description 01/25/2017 5:57 AM CDT - 01/25/2017 11:40 AM CDT Hospital Encounter [facility] Operating Room [address] [place] [address] Simon Bucio MD [address] [place] [id number] Discharge Disposition: Discharge to home or self care Social History Tobacco Use Types Packs/Day Years Used Date Smoking Tobacco: Former Alcohol Use Standard Drinks/Week Comments No 0 (1 standard drink = 0.6 oz pur e alcohol) Sex and Gender Information Value Date Recorded Sex Assigned at Not on file Legal Sex Male 6:00 PM INSOLE TACK PULLER HAND Gender Identity Not on file Sexual Orientation [...] ONE TABLET BY MOUTH EVERY DAY 90 3 08/11/2011 02/17/2017 metoprolol (LOPRESSOR) 25 mg tablet Take 1 tablet (25 mg total) by mouth 2 (two) times a day. 60 tablet 11 12/26/2016 12/26/2017 potassium citrate ER (UROCIT-K) 10 mEq (1,080 mg) CR tablet take 1 tablet by oral route 2 times every day 0 0 10/12/2016 10/07/2021 raNITIdine (ZANTAC) 300 mg tablet take 1 tablet by oral route bid 180 3 06/17/2016 10/30/2018 sulfamethoxazole- trimethoprim (BACTRIM,SEPTRA) 800-160 mg per tablet 01/25/2017 02/06/2017 tamsulosin (FLOMAX) 0.4 mg capsule,extended release 24hr TAKE ONE CAPSULE BY MOUTH EVERY DAY 90 capsule 3 12/14/2016 01/26/2018 documented as of this encounter Discharge Disposition Disposition Code Departure Means Destination Discharge to home or self care documented in this encounter Miscellaneous Notes * Op Note - Provider, MD Wilian - 01/25/2017 12:00 AM CDT OPERATIVE REPORT Patient: VILLA ALSTON Service Date: 01/25/2017 Account: [id number] Room No: 175-02 : 1945 Patient Type: [facility] Attend.: Simno Bucio M.D. Admit Date: 01/25/2017 Surg.: Simon Bucio M.D. Disch. Date: 01/25/2017 SURGEON Simon Bucio M.D. PREOPERATIVE DIAGNOSIS Bladder stones. POSTOPERATIVE DIAGNOSIS Bladder stones. PROCEDURE Cystolitholapaxy with laser. ANESTHESIA General. COMPLICATIONS None. ESTIMATED BLOOD LOSS Less than 5 mL. SPECIMEN Bladder stone. INDICATIONS Mr. Alston is a pleasant 71-year-old gentleman who has a history of kidney stones. She also has bladder stones and prostate enlargement. We discussed treatment options to include treatment of his bladder stones alone versus combination TURP and cystolitholapaxy Prefers just to have his bladder stones treated. Informed consent obtained. Questions answered to his satisfaction. Treatment, risks, and benefits discussed. Questions answered to his satisfaction. Informed consent obtained. He is amenable to proceed as planned. PROCEDURE Patient was brought back to the operating theater, placed in the supine position. SCDs were put in place. He was given preoperative antibiotics and general anesthesia commenced. Placed in the dorsal lithotomy position, prepped and draped in a sterile fashion. Time-out was performed. The rigid cystoscope was gently inserted per urethra. Navigated in the bladder. The stone was encountered both in the prostatic urethra as well as in the bladder. A 1000 watt holmium laser fiber was used at settings of 0.2 and 50 as well as 0.4 and 50 were used. The stones fragmented to small pieces. An Ellik was used to irrigate many these fragments out and a basket was used to remove the rest. I did not see any stones remaining. The bladder was then drained and the procedure was complete. Cystoscopy performed at the time of the procedure. It did reveal mild trabeculation with prostate enlargement. No bladder tumors or masses. UOs were normal in appearance and position. The prostate was obstructed with obstructing lateral lobes and a high bladder neck and the urethra was normal. PLAN I will plan to see him back in 4-6 weeks for assessment. Electronically Authenticated and Edited by: Simon Bucio MD On 01/25/2017 05:03 PM CDT Simon Bucio M.D. SUJIT/rusty TD: 01/25/2017 09:44 documented in this encounter Plan of Treatment Not on file documented as of this encounter Procedures Procedure Name Priority Date/Time Associated Diagnosis Comments SURGICAL PATHOLOGY Routine 01/25/2017 9: 33 AM CDT POTASSIUM, WHOLE BLOOD STAT 01/25/2017 6:37 AM CDT DISCHARGE LABORATORY CUMULATIVE REPORT 01/25/2017 12:00 AM CDT SURGICAL PATHOLOGY 01/25/2017 12 :00 AM CDT documented in this encounter Results * Surgical pathology (01/25/2017 9:33 AM CDT) 01/25/2017 9:33 AM CDT 01/25/2017 9:33 AM CDT Narrative 01/26/2017 1:38 PM CDT [facility] Department of Pathology [address] [place] [id number] Final Report with Addendum ?Patient Name: VILLA ALSTON SR Address: [address] Service: Surgery ??[place], [place] ??[address] Location: [facility] Taken: 01/25/2017 Gender: M Received 01/25/2017 : 1945 (Age: 71) Hospital #: [id number] Accessioned: 01/25/2017 ?? Patient Type: [facility] SDS Reported 01/26/2017 Physician(s): Dr. Simon Bucio ?? Diagnosis: Bladder, cystolithopexy: ? - Calculi (gross examination only) ? - Chemical analysis pending ?? Brooklyn Ortiz M.D. ??Report Electronically Reviewed and Signed Out By ??Brooklyn Ortiz M.D. ??01/26/2017 13:38:23 Procedure/Addenda: Scanned Report Interpretation Stone analysis has been completed at [facility]. See scanned image of results ([id number]) below or review results in the Pathology section in Clinical Desktop. If access to Clinical Desktop is not available, please call pathology for a hard copy of the analysis ([phone]). ? Report Electronically Reviewed and Signed Out By ??Loren Orlando ??02/02/2017 10:33:55 ? Specimen(s) Received: A: Bladder stones Microscopic Description: Gross examination only. Clinical History: Bladder stones. ??Cystolithopexy. Gross Description: The specimen is submitted in a single container labeled Villa Alston and bladder stones . ??It is multiple light penny to dark penny calculi that measure from small flecks to 1.0 cm in greatest dimension. ??The specimen is entirely submitted for chemical analysis. ??Brooklyn Ortiz MD/Jhon Perez. The performance characteristics of some immunohistochemical stains, fluorescence in-situ hybridization tests and immunophenotyping by flow cytometry cited in this report (if any) were determined by the Surgical Pathology Department at [facility] as part of an ongoing assistant manager quality management program and in compliance with federally mandated [...] characteristics [facility]. ??It has not been cleared or approved by the U. S. Food and Drug Administration. Simon Bucio MD LAB PATHOLOGY ORDERABL ES Final Result * Potassium, Whole Blood (01/25/2017 6:37 AM CDT) Potassium, bld 3.6 3.5 - 5.0 mmol/L RUB[facility] CARMICHAEL (BETTY) Blood specimen (specimen) 01/25/2017 6:37 AM CDT 01/25/2017 6:42 AM CDT Simon Bucio MD LAB BLOOD ORDERABLES F inal Result RUBENS CARMICHAEL (LULA) 1 [facility] Department [place] [address] * DISCHARGE LABORATORY CUMULATIVE REPORT (01/25/2017 12:00 AM CDT) Narrative 01/25/2017 12:00 AM CDT Ordered by an unspecified provider. Historical Provider MD LAB BLOOD ORDERABLES Iwona l Result * SURGICAL PATHOLOGY (01/25/2017 12:00 AM CDT) Narrative 01/25/2017 12:00 AM CDT Ordered by an unspecified provider. Historical Provider MD LAB PATHOLOGY ORDERABLES Final Result documented in this encounter Visit Diagnoses Not on filedocumented in this encounter Care Teams Director Product Safety Relationship Specialty Start Date End Date Wesley Em MD PCP - General 09/30/16 12/01/21 documented as of this encounter
--- OUTSIDE RECORDS SUMMARY | 2024-06-18 18:15 | XMS_ITS | Encounter Summary ---
Author Organization [facility] Address [address] [place] [address] Care Team Providers Care Submarine Worker Name Role Phone Wesley Em MD Primary Care Provider [phone] Encounter Details Date Type Department Care Team (Latest Contact Info) Description 07/07/2017 3:30 PM VIDEO GAME SCRIPT WRITER - 07/07/2017 11:59 PM VIDEO GAME SCRIPT WRITER Hospital Encounter [facility] [address] [place] [address] Injury of coccyx, initial encounter; Great toe pain, right Discharge Disposition: Discharge to home or self care Social History Tobacco Use Types Packs/Day Years Used Date Smoking Tobacco: Former Smokeless Tobacco: Never Alcohol Use Standard Drinks/Week Comments No 0 (1 standard drink = 0.6 oz pur e alcohol) Sex and Gender Information Value Date Recorded Sex Assigned at Not on file Legal Sex Male 6:00 PM VIDEO GAME SCRIPT WRITER Gender Identity Not on file Sexual [...] Name Priority Date/Time Associated Diagnosis Comments XR TOE GREAT RIGHT Schedule Routine, Read Routine (OP Routine) 07/07/2017 4:20 PM VIDEO GAME SCRIPT WRITER Great toe pain, right XR SACRUM COCCYX 2 OR MORE VIEWS Schedule Routine, Read Routine (OP Routine) 07/07/2017 4:20 PM VIDEO GAME SCRIPT WRITER Injury of coccyx, initial encounter documented in this encounter Results * XR Toe Great Right (07/07/2017 4:20 PM VIDEO GAME SCRIPT WRITER) Anatomical Region Laterality Modality Lower Extremities, Foot, Toes Right Ra diographic Imaging Sheela Adam NP IMG XR PROCEDURES F inal Result * XR Sacrum Coccyx 2 or More Views (07/07/2017 4:20 PM VIDEO GAME SCRIPT WRITER) Anatomical Region Laterality Modality Pelvis, Body N/A Radiographic Jennifer ging Sheela Adam NP IMG XR PROCEDURES F inal Result documented in this encounter Visit Diagnoses Diagnosis Injury of coccyx, initial encounter Great toe pain, right documented in this encounter Care Teams Submarine Worker Relationship Specialty Start Date End Date Wesley Em MD PCP - General 09/30/16 12/01/21 documented as of this encounter
--- OUTSIDE RECORDS SUMMARY | 2024-06-18 18:15 | XMS_ITS | Encounter Summary ---
Author Organization [facility] Address [address] [place] [address] Care Team Providers Care Cloth Picker Name Role Phone Wesley Em MD Primary Care Provider [phone] Reason for Visit * Reason Comments Follow-up FNA biopsy of preaur icular cyst Encounter Details Date Type Department Care Team (Late st Contact Info) Description 06/02/2017 9:10 AM LEAD SALES CONSULTANT Office Visit [facility] [address] [place] [address] [address] [address] Jerod Espinoza, DO [facility] [place] [address] Sebaceous cyst (Primary Dx) Social History Tobacco Use Types Packs/Day Years Used Date Smoking Tobacco: Former Smokeless Tobacco: Never Alcohol Use Standard Drinks/Week Comments No 0 (1 standard drink = 0.6 oz pur e alcohol) Sex and Gender Information Value Date Recorded Sex Assigned at Not on file Legal Sex Male 6:00 PM LEAD SALES CONSULTANT Gender Identity Not on file Sexual Orientation Straight 01/23/2021 10 :16 PM CDT documented as of this encounter Last Filed Vital Signs Vital Sign Reading Time Taken Comments Blood Pressure - - Pulse - - Temperature - - Respiratory Rate 18 06/02/2017 9:19 AM LEAD SALES CONSULTANT Oxygen Saturation - - Inhaled Oxygen Concentration - - Weight 84.8 kg (187 lb) 06/02/2017 9:19 AM LEAD SALES CONSULTANT Height 174 cm (5' 8.5 ) 06/02/2017 9:19 AM LEAD SALES CONSULTANT Body Mass Index 28.02 06/02/2017 9:19 AM LEAD SALES CONSULTANT documented in this encounter Progress Notes * Jerod Espinoza DO - 06/02/2017 9:10 AM CST Subjective/Objective Patient ID: Villa Zuniga is a 71 y.o. male. Chief Complaint Follow-up (FNA biopsy of preauricular cyst ) History of Present Illness Patient returns back to my office after undergoing a fine-needle aspiration biopsy of a left preauricular cystic lesion. The results came back consistent with a benign epidermal inclusion cyst. Review of Systems Negative Physical Exam Unchanged Assessment/Plan Diagnoses and all orders for this visit: Sebaceous cyst (Primary) Assessment & Plan: Discussed with the patient the results. Patient was made aware that this is a benign lesion. Excisional biopsy is an option verses monitoring. Patient currently would like to a keep an eye on it. Should it get any larger or start to cause him any problems patient should return back to my office forfurther evaluation. Patient can otherwise follow back up with as needed. SALES CONSULTANT documented in this encounter Miscellaneous Notes * Assessment & Plan Note - Jerod Espinoza DO - 06/11/2017 5:13 PM LEAD SALES CONSULTANT Associated Problem(s): Sebaceous cyst (Resolved 2017) Discussed with the patient the results. Patient was made aware that this is a benign lesion. Excisional biopsy is an option verses monitoring. Patient currently would like to a keep an eye on it. Should it get any larger or start to cause him any problems patient should return back to my office forfurther evaluation. Patient can otherwise follow back up with as needed. SALES CONSULTANT documented in this encounter Plan of Treatment Not on file documented as of this encounter Visit Diagnoses Diagnosis Sebaceous cyst- Primary documented in this encounter Care Teams Cloth Picker Relationship Specialty Start Date End Date Wesley Em MD PCP - General 09/30/16 12/01/21 documented as of this encounter
--- OUTSIDE RECORDS SUMMARY | 2024-06-18 18:15 | XMS_ITS | Encounter Summary ---
Author Organization [facility] Healthcare Address [address] [place] [address] Care Team Providers Care Butcherette Name Role Phone Wesley Em MD Primary Care Provider [phone] Encounter Details Date Type Department Care Team (Late st Contact Info) Description 12/14/2016 8:03 AM CDT - 12/14/2016 11:59 PM CDT Hospital Encounter [facility] Wesley Em MD [address] [place] [address] Discharge Disposition: Discharge to home or self care Social History Tobacco Use Types Packs/Day Years Used Date Smoking Tobacco: Former Alcohol Use Standard Drinks/Week Comments No 0 (1 standard drink = 0.6 oz pur e alcohol) Sex and Gender Information Value Date Recorded Sex Assigned at Not on file Legal Sex Male 6:00 PM MAGNETO SPECIALIST Gender Identity Not on file Sexual Orientation Straight 01/23/2021 10 :16 PM CDT documented as of this encounter Medications at Time of Discharge aspirin 81 mg tablet Take one by mouth one time per day 0 0 06/27/2008 atorvastatin (LIPITOR) 40 mg tablet take 1 tablet by oral route every day 90 3 03/25/2016 09/21/2018 cloNIDine (CATAPRES) 0.2 mg tablet take 1 tablet (0.2MG) by oral route bid 60 12 08/13/2012 12/26/2016 clopidogrel (PLAVIX) 75 mg tablet TAKE ONE TABLET BY MOUTH EVERY DAY 90 2 10/01/2012 10/11/2017 finasteride (PROSCAR) 5 mg tablet TAKE ONE TABLET BY MOUTH EVERY DAY 90 3 08/11/2011 02/17/2017 potassium citrate ER (UROCIT-K) 10 mEq (1,080 [...] Associated Diagnosis Comments DISCHARGE LABORATORY CUMULATIVE REPORT 12/14/2016 12:00 AM CDT DISCHARGE LABORATORY CUMULATIVE REPORT 12/14/2016 documented in this encounter Results * DISCHARGE LABORATORY CUMULATIVE REPORT (12/14/2016 12:00 AM CDT) Narrative 12/14/2016 12:00 AM CDT Ordered by an unspecified provider. [facility] Provider LAB BLOOD ORDERABLES Iwona l Result * DISCHARGE LABORATORY CUMULATIVE REPORT (12/14/2016) Provider Scanning LAB BLOOD ORDERABLES Final Res ult documented in this encounter Visit Diagnoses Not on filedocumented in this encounter Care Teams Butcherette Relationship Specialty Start Date End Date Wesley Em MD PCP - General 09/30/16 12/01/21 documented as of this encounter
--- OUTSIDE RECORDS SUMMARY | 2024-06-18 18:15 | XMS_ITS | Encounter Summary ---
Author Organization [facility] Medical [facility] Address [address] [place] [address] Care Team Providers Care Technical Expert Name Role Phone Wesley Em MD Primary Care Provider [phone] Reason for Visit * Reason Comments Dizziness Encounter Details Date Type Department Care Team (Late st Contact Info) Description 07/07/2017 3:00 PM QUALITY CONTROL SCIENTIST Office Visit [facility] [address] [facility] [address] [address] [place] [address] Sheela Adam NP 2 [facility] [address] [place] [id number] Injury of coccyx, initial encounter (Primary Dx); Great toe pain, right; Polycythemia; BMI 28.0-28.9,adult Social History Tobacco Use Types Packs/Day Years Used Date Smoking Tobacco: Former Smokeless Tobacco: Never Alcohol Use Standard Drinks/Week Comments No 0 (1 standard drink = 0.6 oz pur e alcohol) Sex and Gender Information Value Date Recorded Sex Assigned at Not on file Legal Sex Male 6:00 PM QUALITY CONTROL SCIENTIST Gender Identity Not on file Sexual Orientation Straight 01/23/2021 10 :16 PM CDT documented as of this encounter Last Filed Vital Signs Vital Sign Reading Time Taken Comments Blood Pressure 140/70 07/07/2017 3:10 PM QUALITY CONTROL SCIENTIST Pulse 64 07/07/2017 3:10 PM QUALITY CONTROL SCIENTIST Temperature 36.5 ??C (97.7 ??F) 07/07/2017 3:10 PM CS T Respiratory Rate 16 07/07/2017 3:10 PM QUALITY CONTROL SCIENTIST Oxygen Saturation - - Inhaled Oxygen Concentration - - Weight 86 kg (189 lb 11.2 oz) 07/07/2017 3:10 PM QUALITY CONTROL SCIENTIST Height 174 cm (5' 8.5 ) 07/07/2017 3:10 PM QUALITY CONTROL SCIENTIST Body Mass Index 28.42 07/07/2017 3:10 PM QUALITY CONTROL SCIENTIST documented in this encounter Progress Notes * Sheela Adam, YUKI - 07/07/2017 3:00 PM CST Subjective/Objective Patient ID: Villa Zuniga is a 71 y.o. male. Chief Complaint Dizziness Patient presents to the office today accompanied by his . Originally his office visit was made for dizziness but he states he has not experienced any dizziness. He states he is here for follow-upon a fall. Last Monday, June 03, patient was hanging a light fixture for his . He was tosteps up on a small step stool. He was looking up at the ceiling light and lost his balance. He began to fall backwards. He hung on to the light fixtures so it would not break and grabbed the stool handle with his other hand. The stool collapse beneath him any fell backwards landing hard on his buttocks. He did not hit his head. He did not lose consciousness. He denies any lightheadedness or dizziness since the incident. He states his buttocks off to the right side is particularly tender. He states this hurts quite a bit when he sits down. He seems to be more comfortable when walking or standing. But the pressure on his tailbone causes him discomfort. He states he also injured the base of his right toe when he fell. He is not sure of his foot curl beneath him or the step stool fell on the toe. But it has been nearly a week now and this toe still bothers him. 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 Recently he switched to a new continuity director in the area when his prior doctor retired. He states this new doctor ran some additional tests and informed him he does not have polycythemia vera. He is currentlyundergoing additional workup to determine the etiology for his polycythemia. Patient tells me he would previously donated 1 unit of blood every 2-3 months to treat his polycythemia. He states the newprovider is not checking his blood counts as frequently. He states previously if his counts were over 14 he would donate a unit of blood. Patient would like his blood counts checked today to see where they stand at the present time. Review of Systems Constitutional: Positive for activity change. Negative for appetite change, chills, fatigue and fever. HENT: Negative. Eyes: Negative. Respiratory: Negative. Negative for cough, shortness of breath and wheezing. Cardiovascular: Negative. Negative for chest pain. Gastrointestinal: Negative. Negative for diarrhea, nausea and vomiting. Genitourinary: Negative. Negative for dysuria, frequency and urgency. Musculoskeletal: Please refer to HPI. Neurological: Negative. Negative for dizziness, weakness and light-headedness. Hematological: Please refer to HPI. Psychiatric/Behavioral: Negative. Vitals: 07/07/17 1510 BP: 140/70 BP Location: Left arm Patient Position: Sitting Pulse: 64 Resp: 16 Temp: 36.5 ??C (97.7 ??F) TempSrc: Oral Weight: 86 kg (189 lb 11.2 oz) Height: 174 cm (5' 8.5 ) Physical Exam Constitutional: He is oriented [...] normal. Abdominal: Soft. Bowel sounds are normal. Musculoskeletal: Patient has pretty significant fading ecchymosis to the gluteal fold slightly to the right of the midline. Palpation of the soft tissues elicits discomfort. There is no erythema or signs or symptoms of infection. There is no break in skin integrity to this location. Straight leg raise is negative bilaterally. He is able to ambulate independently without assistance or complaints of discomfort. To the patient's right great toe he has a small abrasion on the plantar aspect of the foot. There is no surrounding tissue erythema or signs or symptoms of infection. No ecchymosis. He notes discomfort with flexion. Neurological: He is alert and oriented to person, place, and time. Skin: Skin is warm and dry. No rash noted. Please refer to musculoskeletal. Psychiatric: He has a normal mood and affect. His behavior is normal. Assessment/Plan Diagnoses and all orders for this visit: Injury of coccyx, initial encounter (Primary) Assessment & Plan: I recommended we proceed with x-ray of the sacrum and coccyx to rule out underlying fracture. Further direction pending x-ray results. Orders: - XR Sacrum Coccyx 2 or More Views; Future Great toe pain, right Assessment & Plan: Patient has an abrasion on the plantar [...] will continue this treatment regimen until healed. Orders: - XR Toe Great Right; Future Polycythemia Assessment & Plan: Patient is currently undergoing treatment per Hematology. He is concerned his blood counts may be drifting upward and request CBC today. Blood work will be drawn and results will be forwarded along to continuity director for review as well. Further direction pending these results. He is to contact the office if he has not heard from me by Monday for review. Orders: - CBC with auto differential; Future BMI 28.0-28.9,adult Disposition: We discussed dose, use, [...] to have all questions answered. Patient is agreement with the plan of care. Sheela Adam NP *This office note was completed using [employer] complaint investigator neisha and may be subject to complaint investigator errors* Cosigned by Wesley Em MD at 07/07/2017 4:21 PM QUALITY CONTROL SCIENTIST ITY CONTROL SCIENTIST ITY CONTROL SCIENTIST documented in this encounter Miscellaneous Notes * Assessment & Plan Note - Sheela Adam NP - 07/07/2017 3:40 PM CSTAssociated Problem(s): Polycythemia Patient is currently undergoing treatment per Hematology. He is concerned his blood counts may be drifting upward and request CBC today. Blood work will be drawn and results will be forwarded along to continuity director for review as well. Further direction pending these results. He is to contact the office if he has not heard from me by Monday for review. ITY CONTROL SCIENTIST * Assessment & Plan Note - Sheela Adam NP - 07/07/2017 3:40 PM CSTAssociated Problem(s): Injury of coccyx (Resolved 2017) I recommended we proceed with x-ray of the sacrum and coccyx to rule out underlying fracture. Further direction pending x-ray results. ITY CONTROL SCIENTIST * Assessment & Plan Note - Sheela Adam NP - 07/07/2017 3:39 PM CSTAssociated Problem(s): Great toe pain, right (Resolved 2017) Patient has an abrasion on the plantar [...] will continue this treatment regimen until healed. ITY CONTROL SCIENTIST documented in this encounter Plan of Treatment Not on file documented as of this encounter Results * XR Toe Great Right (07/07/2017 4:20 PM QUALITY CONTROL SCIENTIST) Anatomical Region Laterality Modality Lower Extremities, Foot, Toes Right Ra diographic Imaging Sheela Adam NP IMG XR PROCEDURES F inal Result * XR Sacrum Coccyx 2 or More Views (07/07/2017 4:20 PM QUALITY CONTROL SCIENTIST) Anatomical Region Laterality Modality Pelvis, Body N/A Radiographic Jennifer ging Sheela Adam SAW SHARPENER IMG XR PROCEDURES F inal Result * (ABNORMAL) CBC with auto differential (07/07/2017 3:41 PM QUALITY CONTROL SCIENTIST) Pathologist [facility] WBC 7.93 3.80 - 9.90 K/cumm [facility] RBC 5.30 4.30 - 5.80 M/cumm CERNER Hgb 14.4 13.0 - 17.5 g/dL [facility] Hct 45.6 38.9 - 50.3 % [facility] MCV 86.0 81.3 - 96.4 fL [facility] MCH 27.2 27.1 - 33.3 pg [facility] MCHC 31.6(L) 32.3 - 35.7 g/dL [facility] RDW CV 14.7 11.1 - 14.9 % [facility] RDW SD 45.8 35.7 - 48.1 fL [facility] Plt 236 150 - 400 K/cumm [facility] MPV 11.2 9.1 - 12.3 fL [facility] NRBC 0.0 0.0 - 0.2 % [facility] NRBC abs 0.00 0.00 - 0.01 K/cumm [facility] Blood specimen (specimen) 07/07/2017 3:41 PM QUALITY CONTROL SCIENTIST 07/07/2017 7:59 PM QUALITY CONTROL SCIENTIST Narrative [facility] - 07/07/2017 8:37 PM QUALITY CONTROL SCIENTIST Sheela Adam NP LAB BLOOD ORDERABLE S Final Result [facility] [id number] [facility] [place] [id number] documented in this encounter Visit Diagnoses Diagnosis Injury of coccyx, initial encounter- Primary Great toe pain, right Polycythemia Polycythemia, secondary BMI 28.0-28.9,adult Polycythemia Polycythemia, secondary documented in this encounter Care Teams Technical Expert Relationship Specialty Start Date End Date Wesley Em MD PCP - General 09/30/16 12/01/21 documented as of this encounter
--- OUTSIDE RECORDS SUMMARY | 2024-06-18 18:15 | XMS_ITS | Encounter Summary ---
Author Organization [facility] Address [address] [place] [address] Care Team Providers Care Shaft Mechanic Name Role Phone Wesley Em MD Primary Care Provider [phone] Reason for Visit * Reason Comments Follow-up DM Encounter Details Date Type Department Care Team (Late st Contact Info) Description 01/23/2017 11:00 AM CDT Office Visit [facility] [address] [address] Wesley Em MD [address] [place] [address] [address] [place] [address] Essential hypertension (Primary Dx); Polycythemia vera, acquired Social History Tobacco Use Types Packs/Day Years Used Date Smoking Tobacco: Former Alcohol Use Standard Drinks/Week Comments No 0 (1 standard drink = 0.6 oz pur e alcohol) Sex and Gender Information Value Date Recorded Sex Assigned at Not on file Legal Sex Male 6:00 PM ETCHER PRINTED CIRCUIT BOARDS Gender Identity Not on file Sexual Orientation Straight 01/23/2021 10 :16 PM CDT documented as of this encounter Last Filed Vital Signs Vital Sign Reading Time Taken Comments Blood Pressure 114/86 01/23/2017 11:13 AM CDT Pulse 80 01/23/2017 11:13 AM CDT Temperature - - Respiratory Rate 18 01/23/2017 11:13 AM CDT Oxygen Saturation - - Inhaled Oxygen Concentration - - Weight 83.6 kg (184 lb 6.4 oz) 01/23/2017 11:13 AM CDT Height 172.7 cm (5' 8 ) 01/23/2017 11:13 AM CDT Body Mass Index 28.04 01/23/2017 11:13 AM CDT documented in this encounter Progress Notes * Wesley Em MD - 01/23/2017 11:00 AM CDT Subjective/Objective Patient ID: Villa Zuniga is a 71 y.o. male. Chief Complaint Follow-up (DM) HPI Davidson 71 years of age accompanied by his . Seen Dr. [facility] this week for cystoscopy in surgery to break up the stones he stopped his aspirin and Plavix a week at a time according to instructions provided to the by Dr. Blake his office. We made changes to his blood pressure medications last month and force his blood pressure is doing great he is off clonidine in the taking metoprolol 25b.i.d. with good results Review of Systems He denies any fatigue year lightheadedness Physical Exam Vitals is per electronic medical record lungs clear cardiovascular regular Assessment/Plan Diagnoses and all orders for this visit: 1. Essential hypertension (Primary) 2. Polycythemia vera, acquired Patient does have the well-controlled hypertension on metoprolol he is also has a history of coronary artery disease continue the beta-johanne therapy I have follow-up with Hematology Oncology regarding his polycythemia vera and up-to-date basics was printed off for him and his to review will see back in 4 months lab work a week at a time documented in this encounter Plan of Treatment Not on file documented as of this encounter Procedures Procedure Name Priority Date/Time Associated Diagnosis Comments HEPATITIS C SCREENING Routine 06/17/2016 DIABETES EYE EXAM Routine 04/08/2014 documented in this encounter Results * HEPATITIS C SCREENING (06/17/2016) HEP C Normal us Historical Provider HEALTH MAINTENANCE Final Result * DIABETES EYE EXAM (04/08/2014) Diabetic Eye Exam Unknown us Historical Provider HEALTH MAINTENANCE Final Result documented in this encounter Visit Diagnoses Diagnosis Essential hypertension- Primary Unspecified essential hypertension Polycythemia vera, acquired (HCC) documented in this encounter Discontinued Medications Medication Sig Discontinue Reason Start Date End Da te aspirin-calcium carbonate 81 mg-300 mg calcium(777 mg) tablet Take 81 mg by mouth. Duplicate order 01/23/2017 documented as of this encounter Historical Medications * This list may reflect changes made after this encounter. aspirin-calcium carbonate 81 mg-300 mg calcium(777 mg) tablet Take 81 mg by mouth. 01/23/2017 added in this encounter Care Teams Shaft Mechanic Relationship Specialty Start Date End Date Wesley Em MD PCP - General 09/30/16 12/01/21 documented as of this encounter
--- OUTSIDE RECORDS SUMMARY | 2024-06-18 18:15 | XMS_ITS | Encounter Summary ---
Author Organization [facility] Healthcare Address [address] [place] [address] Care Team Providers Care Airport Representative Name Role Phone Wesley Em MD Primary Care Provider [phone] Encounter Details Date Type Department Care Team (Late st Contact Info) Description 04/04/2017 8:54 AM CDT - 04/04/2017 11:59 PM CDT Hospital Encounter [facility] Wesley Em MD [address] [place] [address] Discharge Disposition: Discharge to home or self care Social History Tobacco Use Types Packs/Day Years Used Date Smoking Tobacco: Former Smokeless Tobacco: Never Alcohol Use Standard Drinks/Week Comments No 0 (1 standard drink = 0.6 oz pur e alcohol) Sex and Gender Information Value Date Recorded Sex Assigned at Not on file Legal Sex Male 6:00 PM TOUR DIRECTOR Gender Identity Not on file Sexual [...] Associated Diagnosis Comments DISCHARGE LABORATORY CUMULATIVE REPORT 04/04/2017 12:00 AM CDT documented in this encounter Results * DISCHARGE LABORATORY CUMULATIVE REPORT (04/04/2017 12:00 AM CDT) Narrative 04/04/2017 12:00 AM CDT Ordered by an unspecified provider. us Historical Provider LAB BLOOD ORDERABLES Iwona l Result documented in this encounter Visit Diagnoses Not on filedocumented in this encounter Care Teams Airport Representative Relationship Specialty Start Date End Date Wesley Em MD PCP - General 09/30/16 12/01/21 documented as of this encounter
--- OUTSIDE RECORDS SUMMARY | 2024-06-18 18:15 | XMS_ITS | Encounter Summary ---
Author Organization [facility] Address [address] [place] [address] Care Team Providers Care Homeworker Name Role Phone Wesley Em MD Primary Care Provider [phone] Encounter Details Date Type Department Care Team (Latest Contact Info) Description 12/27/2016 3:12 PM CDT - 12/27/2016 11:59 PM CDT Hospital Encounter [facility] Orthopedics and Sports Medicine [address] [place] [address] [address] [address] Discharge Disposition: Discharge to home or self care Social History Tobacco Use Types Packs/Day Years Used Date Smoking Tobacco: Former Alcohol Use Standard Drinks/Week Comments No 0 (1 standard drink = 0.6 oz pur e alcohol) Sex and Gender Information Value Date Recorded Sex Assigned at Not on file Legal Sex Male 6:00 PM CARPENTER'S HELPER Gender Identity Not on file Sexual [...] Name Priority Date/Time Associated Diagnosis Comments XR ELBOW LEFT 3 OR MORE VIEWS Schedule Routine, Read Routine (OP Routine) 12/27/2016 3:12 PM CDT Rupture of distal biceps tendon, left, initial encounter documented in this encounter Results * XR Elbow Left 3+ View (12/27/2016 3:12 PM CDT) Anatomical Region Laterality Modality Upper Extremities, Elbow Left Digital Radiography Narrative 12/27/2016 5:05 PM CDT X-ray of the left elbow viewed and interpreted. ??There is no evidence of fracture, subluxation, or bony abnormality. Joint spaces well maintained us Yo Schaefer MD IMG XR PROCEDURES Final Resu lt documented in this encounter Visit Diagnoses Not on filedocumented in this encounter Care Teams Homeworker Relationship Specialty Start Date End Date Wesley Em MD PCP - General 09/30/16 12/01/21 documented as of this encounter
--- OUTSIDE RECORDS SUMMARY | 2024-06-18 18:15 | XMS_ITS | Encounter Summary ---
Author Organization [facility] Medical Group Address [address] [place] [address] Care Team Providers Care Slide Forming Machine Operator Name Role Phone Wesley Em MD Primary Care Provider [phone] Encounter Details Date Type Department Care Team (Late st Contact Info) Description 12/13/2016 Telephone [facility] [address] [address] [place] [address] Wesley Em MD [address] [place] [address] Social History Tobacco Use Types Packs/Day Years Used Date Smoking Tobacco: Former Alcohol Use Standard Drinks/Week Comments No 0 (1 standard drink = 0.6 oz pur e alcohol) Sex and Gender Information Value Date Recorded Sex Assigned at Not on file Legal Sex Male 6:00 PM JALOUSIE INSTALLER Gender Identity Not on file Sexual Orientation Straight 01/23/2021 10 :16 PM CDT documented as of this encounter Miscellaneous Notes * Telephone Encounter - Eddie Varghese - 12/13/2016 12:36 PM CDT Pt was supposed to see dr stark yesterday but pt cancelled documented in this encounter Plan of Treatment Not on file documented as of this encounter Visit Diagnoses Not on filedocumented in this encounter Care Teams Slide Forming Machine Operator Relationship Specialty Start Date End Date Wesley Em MD PCP - General 09/30/16 12/01/21 documented as of this encounter
--- OUTSIDE RECORDS SUMMARY | 2024-06-18 18:15 | XMS_ITS | Encounter Summary ---
Author Organization [facility] Medical [facility] Address [address] [place] [address] Care Team Providers Care Base Brander Name Role Phone Wesley Em MD Primary Care Provider [phone] Encounter Details Date Type Department Care Team (Late st Contact Info) Description 04/04/2017 8:45 AM CDT Lab [facility] [address] [place] [address] [address] [place] [id number] Essential hypertension Social History Tobacco Use Types Packs/Day Years Used Date Smoking Tobacco: Former Smokeless Tobacco: Never Alcohol Use Standard Drinks/Week Comments No 0 (1 standard drink = 0.6 oz pur e alcohol) Sex and Gender Information Value Date Recorded Sex Assigned at Not on file Legal Sex Male 6:00 PM COMPUTATIONAL THEORY SCIENTIST Gender Identity Not on file Sexual Orientation Straight 01/23/2021 10 :16 PM CDT documented as of this encounter Plan of Treatment Not on file documented as of this encounter Visit Diagnoses Diagnosis Essential hypertension Unspecified essential hypertension documented in this encounter Care Teams Base Brander Relationship Specialty Start Date End Date Wesley Em MD PCP - General 09/30/16 12/01/21 documented as of this encounter
--- OUTSIDE RECORDS SUMMARY | 2024-06-18 18:15 | XMS_ITS | Encounter Summary ---
Author Organization [facility] Address [address] [place] [address] Care Team Providers Care Cleaner Assistant Name Role Phone Wesley Em MD Primary Care Provider [phone] Reason for Visit * Reason Comments Follow-up Encounter Details Date Type Department Care Team (Late st Contact Info) Description 02/06/2017 1:30 PM CDT Office Visit [facility] Orthopedics and Sports Medicine [address] [place] [id number] Anay Son PA [address] [place] [address] [address] [place] [address] Rupture of distal biceps tendon, left, subsequent encounter (Primary Dx) Social History Tobacco Use Types Packs/Day Years Used Date Smoking Tobacco: Former Smokeless Tobacco: Never Alcohol Use Standard Drinks/Week Comments No 0 (1 standard drink = 0.6 oz pur e alcohol) Sex and Gender Information Value Date Recorded Sex Assigned at Not on file 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 Gender Identity Not on file Sexual Orientation Straight 01/23/2021 10 :16 PM CDT documented as of this encounter Last Filed Vital Signs Vital Sign Reading Time Taken Comments Blood Pressure 130/74 02/06/2017 1:02 PM CDT Pulse 62 02/06/2017 1:02 PM CDT Temperature - - Respiratory Rate - - Oxygen Saturation - - Inhaled Oxygen Concentration - - Weight 83.8 kg (184 lb 12.8 oz) 02/06/2017 1:02 PM CDT Height 174 cm (5' 8.5 ) 02/06/2017 1:02 PM CDT Body Mass Index 27.69 02/06/2017 1:02 PM CDT documented in this encounter Progress Notes * Anay Son PA - 02/06/2017 1:30 PM CDT Images from the original note were not included. FOLLOW UP VISIT Subjective CHIEF COMPLAINT He had concerns including Follow-up of the Left Shoulder. HISTORY OF PRESENT ILLNESS Patient presents for follow up on left rupture of distal biceps tendon. Patient has been compliant with elbow Rom and tylenol OTC PRN. Patient states he has minimal pain at this time. Pain Assessment Pain Assessment: 0-10 Pain Score: 3 (with movement) MEDICATIONS He has a current medication list which includes the following prescription(s): aspirin, atorvastatin, plavix, finasteride, metoprolol, potassium citrate er, ranitidine, and tamsulosin. REVIEW OF SYSTEMS Review of Systems Constitutional: Negative for activity change, appetite change, chills and fever. HENT: Negative for congestion, dental problem, ear pain, hearing loss and voice change. Eyes: Negative for pain and visual disturbance. Respiratory: Negative for apnea, cough, chest tightness and shortness of breath. Cardiovascular: Negative for chest pain, palpitations and leg swelling. Gastrointestinal: Negative for blood in stool, constipation, diarrhea, nausea and vomiting. Endocrine: Negative for cold intolerance and heat intolerance. Genitourinary: Negative for difficulty urinating and hematuria. Skin: Negative for color change, rash and wound. Allergic/Immunologic: Negative for environmental allergies. Neurological: Negative for dizziness, syncope, numbness and headaches. Hematological: Negative for adenopathy. Does not bruise/bleed easily. Psychiatric/Behavioral: Negative for confusion. The patient is not nervous/anxious and is not hyperactive. Objective PHYSICAL EXAM BP 130/74 (BP Location: Left arm, Patient Position: Sitting) Pulse 62 Ht 174 cm (5' 8.5 ) Wt 83.8 kg (184 lb 12.8 oz) BMI 27.69 kg/m?? Right elbow The patient has normal inspection, palpation, range of motion, strength, and stability of the rightelbow. Inspection The patient has normal inspection of the right elbow. Left elbow Inspection The patient has normal inspection of the left elbow. Palpation The patient has normal palpation of the left elbow. Range of motion The patient has normal range of motion of the left elbow. Active elbow flexion: 120. Active forearm supination: 50. Stability The patient has normal stability of the left elbow. Strength The patient has 5/5 strength throughout with exceptions as noted below. Elbow flexion: 3/5 Forearm supination: 2/5 Neurovascular The patient has normal vascular on the left side of their body. The patient has normal sensation on the left side of their body. Tests Hook sign: positive REVIEW OF X-RAYS/STUDIES/LABS Assessment/Plan There are no diagnoses linked to this encounter. PLAN Continue elbow ROM as tolerated. Tylenol OTC prn. Patient to call with any questions or concerns. MELVIN Trujillo documented in this encounter Plan of Treatment Not on file documented as of this encounter Visit Diagnoses Diagnosis Rupture of distal biceps tendon, left, subsequent encounter- Primary documented in this encounter Discontinued Medications Medication Sig Discontinue Reason Start Date End Da te sulfamethoxazole-trimethoprim (BACTRIM,SEPTRA) 800-160 mg per tablet Therapy completed 017 02/06/2017 documented as of this encounter Historical Medications * This list may reflect changes made after this encounter. Medication Sig Dispense Quantity Refills Last Filled Start D ate End Date sulfamethoxazole-trim ethoprim (BACTRIM,SEPTRA) 800-160 mg per tablet 01/25/201712/2016 added in this encounter Care Teams Cleaner Assistant Relationship Specialty Start Date End Date Wesley Em MD PCP - General 09/30/16 12/01/21 documented as of this encounter
--- OUTSIDE RECORDS SUMMARY | 2024-06-18 18:15 | XMS_ITS | Encounter Summary ---
Author Organization [facility] Address [address] [place] [address] Care Team Providers Care Electrician Station Assistant Name Role Phone Wesley Em MD Primary Care Provider [phone] Encounter Details Date Type Department Care Team (Late st Contact Info) Description 07/07/2017 3:45 PM REFLESHER Lab [facility] [address] [place] [address] [address] [place] [phone] Polycythemia Social History Tobacco Use Types Packs/Day Years Used Date Smoking Tobacco: Former Smokeless Tobacco: Never Alcohol Use Standard Drinks/Week Comments No 0 (1 standard drink = 0.6 oz pur e alcohol) Sex and Gender Information Value Date Recorded Sex Assigned at Not on file 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
--- OUTSIDE RECORDS SUMMARY | 2024-06-18 18:15 | XMS_ITS | Encounter Summary ---
Author Organization [facility] Address [address] [address] Care Team Providers Care Crop Grain Or Livestock Farmer Name Role Phone Wesley Em MD Primary Care Provider [phone] Reason for Referral * Consultation (Routine) - Closed Specialty Diagnoses / Procedures Referred By Jomar villela Referred To Contact Gastroenterology Diagnoses Medicare annual wellness visit, subsequent Wesley Em MD Phone: tel: fax: Referral ID Status Reason Start Date Expiration Date V isits Requested Visits Authorized [id number] Closed Specialty Services Required 12/27/2016 06/25/2017 1 1 Comments Refer to [facility] for follow up colonoscopy/egd Dx barretts esophagus * Surgical (Routine) - Closed Specialty Diagnoses / Procedures Referred By Jomar villela Referred To Contact Orthopedic Surgery Diagnoses Biceps tendon rupture, left, initial encounter Wesley Em MD Phone: tel: fax: Yo Schaefer MD Phone: tel: fax: Referral ID Status Reason Start Date Expiration Date V isits Requested Visits Authorized [id number] Closed Specialty Services Required 12/26/2016 06/24/2017 1 1 Reason for Visit * Reason Comments Medicare Wellness Encounter Details Date Type Department Care Team (Late st Contact Info) Description 12/26/2016 3:45 PM CDT Office Visit [facility] [address] [place] [id number] Wesley Em MD [address] [facility] [place] [address] Medicare annual wellness visit, subsequent (Primary Dx); Type 2 diabetes mellitus without complication, without long-term current use of insulin ([facility]/HCC); Essential hypertension; Mixed hyperlipidemia; Coronary artery disease involving tohono o[place]od[place] heart without angina pectoris, unspecified vessel or lesion type; Kidney stones; BPH with urinary obstruction; Chronic obstructive pulmonary disease, unspecified COPD type (CMS/HCC); Biceps tendon rupture, left, initial encounter; Mayo's esophagus with dysplasia Social History Tobacco Use Types Packs/Day Years Used Date Smoking Tobacco: Former Alcohol Use Standard Drinks/Week Comments No 0 (1 standard drink = 0.6 oz pur e alcohol) Sex and Gender Information Value Date Recorded Sex Assigned at Not on file 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 Gender Identity Not on file Sexual Orientation Straight 01/23/2021 10 :16 PM CDT documented as of this encounter Last Filed Vital Signs Vital Sign Reading Time Taken Comments Blood Pressure 130/68 12/26/2016 3:51 PM CDT Pulse 76 12/26/2016 3:51 PM CDT Temperature - - Respiratory Rate 16 12/26/2016 3:51 PM CDT Oxygen Saturation - - Inhaled Oxygen Concentration - - Weight 83.3 kg (183 lb 9.6 oz) 12/26/2016 3:51 P M CDT Height 170.2 cm (5' 7 ) 12/26/2016 3:51 PM CDT Body Mass Index 28.76 12/26/2016 3:51 PM CDT documented in this encounter Ordered Prescriptions Prescription Sig Dispense Quantity Refills Last Filled Start Date End Date metoprolol (LOPRESSOR) 25 mg tablet Take 1 tablet (25 mg total) by mouth 2 (two) times a day. 60 tablet 11 12/26/2016 12/26/2017 documented in this encounter Progress Notes * Wesley Em MD - 12/26/2016 3:45 PM CDT Subjective/Objective Patient ID: Villa Zuniga is a 71 y.o. male. Chief Complaint Medicare Wellness HPI Davidson is a 71-year-old white male that returns today for well examination is company by his .He has multiple medical problems including diabetes chronic obstructive pulmonary disease from years of smoking kidney stones benign prostatic hypertrophy he has coronary artery disease with stent placement high blood pressure he currently has no chest pain no shortness of breath. He admits he is not walking every day but he stays busy with chores he has around the house his states that she takes care the inside house see to scare the outside the house. His health risk assessment is documented electronic medical record he quit smoking Aleve over 20 years ago does drinking alcohol sees very specialists including Dr. Flores oncology Dr. Bucio urology doctor as rec Cardiology and Dr. linn doc 80 gastroenterology he states the over the weekend he notice the bruise start showing up on his left upper arm anterior part quite is this bruising extended in the went to the emergency room was diagnosed with left biceps tendon rupture. No x-rays lab work was done he was sent home. He is agreeable see [facility] for evaluation and stands he may need surgery for this if he lessto go could lead to permanent disability in his left upper extremity patient is right handed. His diabetes has been under good control with A1c test of 5.9 he has no hypoglycemic spells he understands he should be seen aviation medicine specialist yearly but has been putting that off a little bit he has follow-up with Dr. Bucio is urologist for his pyuria bit and the benign prostatic hypertrophy with obstruction he has had some kidney stones and bladder stones and he has not been use the clonidine consistently because it makes him too sleepy so going to need to put him on a different medication we talkedabout put him back on a beta johanne considering his heart disease and wean off the clonidine is going to be doing that over the next week. He has history of polycythemia is following up with Dr. Flores regarding phlebotomies under furthegIn 2008 but does have a 40 pack year history of some smokingis due for low-dose CT scan through his last low-dose CT scan of the chest was is temperature 2016 is due this March the patient is also due for colonoscopy this year past medical history medications per electronic medical record immunization refuses all immunizations understand the risk and benefits of immunizations completely medical surgical Caroline hypertension hyperlipidemia coronary disease with stent placement x3 2013 diabetes tobacco abuse history bilateral total knee surgeries bilateral carpal tunnel release family social history lives in [facility] he is retired from [employer] we worked for 40 years he has several grown children rReview of Systems Constitutional: Negative for activity change, appetite change, chills, diaphoresis, fatigue, fever and unexpected weight change. HENT: Negative for congestion, dental problem, drooling, ear discharge, ear pain, facial swelling, hearing loss, mouth sores, nosebleeds, rhinorrhea, sinus pressure, sore throat, tinnitus, trouble swallowing and voice change. Eyes: Negative for photophobia and visual disturbance. Respiratory: Negative for cough, chest tightness, shortness of breath and wheezing. Cardiovascular: Negative for chest pain, palpitations and leg swelling. Gastrointestinal: Negative for abdominal distention, abdominal pain, blood in stool, constipation, diarrhea, nausea, rectal pain and vomiting. Endocrine: Negative for polydipsia and polyuria. Genitourinary: Negative for difficulty urinating and hematuria. Musculoskeletal: Negative for arthralgias, back pain, gait problem, joint swelling and myalgias. Skin: Negative for color change and rash. Neurological: Negative for dizziness, seizures, syncope, speech difficulty, weakness, numbness and headaches. Hematological: Does not bruise/bleed easily. Psychiatric/Behavioral: Negative for behavioral problems, confusion and suicidal ideas. The patientis not nervous/anxious. Physical Exam vitals is per chart electronic medical record the patient appears in no acute distress his head is normocephalic and atraumatic pupils equal round react like accommodation fundi in TMs are normal tongue uvula is midline the neck is supple without bruits adenopathy masses or JVD no thyromegaly or nodules cardiovascular S1-S2 without murmurs gallops clicks or rubs thorax clear to a and P no rales rhonchi or wheezes no axillary adenopathy the abdomen soft and nontender with normal bowel sounds is no hepatosplenomegaly bruise or masses male examination was not done he for the 1st Dr. Bucio urology extremities no edema or cyanosis with good pulses throughout full range of motion throughout this is a large ecchymosis in the left anterior arm with weakness of the biceps muscle noted. Skin no suspicious lesions ecchymosis or petechiae Assessment/Plan Diagnoses and all orders for this visit: 1. Medicare annual wellness visit, subsequent (Primary) 2. Type 2 diabetes mellitus without complication, without long-term current use of insulin ([facility]) 3. Essential hypertension 4. Mixed hyperlipidemia 5. Coronary artery disease involving tohono o'odham heart without angina pectoris, unspecified vessel or lesion type 6. Kidney stones 7. BPH with urinary obstruction 8. Chronic obstructive pulmonary disease, unspecified COPD type ([facility]) 9. Biceps tendon rupture, left, initial encounter - Ambulatory referral to Orthopedic Surgery Other orders - HM COLONOSCOPY - DIABETES FOOT EXAM - URINE MICROALBUMNIN - metoprolol (LOPRESSOR) 25 mg tablet; Take 1 tablet (25 mg total) by mouth 2 (two) times a day. Patient will be scheduled for low-dose CT scan in March this will be of his chest he will follow up with Dr. kaveh fernandes a for colonoscopy this year if not already done he was encouraged to start exercising on a regular basis will get him set up for the orthopedist for his bicep tendon is blood pressure cholesterol results are good his diabetes is under good control he will see Ophthalmology yearly for diabetic eye examination will switch his clonidine 2 metoprolol a we not declining graduallyseen back in a month recheck blood pressure courage to monitor at home any problems with the medication call me immediately will follow up with Dr. Bucio regarding his enlarged prostate kidney stones bladder stones and pyuria he does have a history of Mayo's esophagus as well follows up with Dr. kaveh fernandes in regular basis he will follow up which regards polycythemia vera documented in this encounter Miscellaneous Notes * Addendum Note - Clifton Allan - 12/26/2016 3:45 PM CDTAddended by: CLIFTON ALLAN on: 08/07/2017 04:16 PM Modules accepted: Orders E SPLITTING SUPERVISOR documented in this encounter Plan of Treatment Scheduled Referrals Name Type Priority Associated Diagnoses Order Schedule Ambulatory referral to Orthopedic Surgery Outpatient Referral Routine Biceps tendon rupture, left, initial encounter Ordered: 12/26/2016 Ambulatory referral to Gastroenterology Outpatient Referral Routine Medicare annual wellness visit, subsequent Ordered: 12/27/2016 documented as of this encounter Procedures Procedure Name Priority Date/Time Associated Diagnosis Comments URINE MICROALBUMNIN Routine 12/14/2016 DIABETES FOOT EXAM Routine 08/18/2016 COLONOSCOPY Routine 07/26/2006 documented in this encounter Results * URINE MICROALBUMNIN (12/14/2016) Pathologist [facility] SCRIBED Microalbumin 175.0 [facility] Provider HEALTH MAINTENANCE Final Result * DIABETES FOOT EXAM (08/18/2016) Diabetic Foot Exam Unknown [facility] Provider HEALTH MAINTENANCE Final Result * COLONOSCOPY (07/26/2006) Colonoscopy Abnormal Comment:polyps Anatomical Region Laterality Modality Other [facility] Provider HEALTH MAINTENANCE Final Result documented in this encounter Visit Diagnoses Diagnosis Medicare annual wellness visit, subsequent- Primary Type 2 diabetes mellitus without complication, without long-term current use of insulin ([facility]) (HCC) Essential hypertension Unspecified essential hypertension Mixed hyperlipidemia Coronary artery disease involving tohono o'od[place] heart without angina pectoris, unspecified vessel or lesion type Kidney stones Calculus of kidney BPH with urinary obstruction Hypertrophy of prostate with urinary obstruction and other lower urinary tract symptoms ([facility]S) Chronic obstructive pulmonary disease, unspecified COPD type ([facility]) Biceps tendon rupture, left, initial encounter Mayo's esophagus with dysplasia documented in this encounter Discontinued Medications Medication Sig Discontinue Reason Start Date End Da te cloNIDine (CATAPRES) 0.2 mg tablet take 1 tablet (0.2MG) by oral route bid Error 08/13/2012 12/26/2016 documented as of this encounter Care Teams Crop Grain Or Livestock Farmer Relationship Specialty Start Date End Date Wesley Em MD PCP - General 09/30/16 12/01/21 documented as of this encounter
--- OUTSIDE RECORDS SUMMARY | 2024-06-18 18:15 | XMS_ITS | Encounter Summary ---
Author Organization [facility] Address [address] [place] [address] Care Team Providers Care Internal Controls Analyst Name Role Phone Wesley Em MD Primary Care Provider [phone] Encounter Details Date Type Department Care Team (Late st Contact Info) Description 01/05/2017 10:47 AM CDT - 01/05/2017 11:59 PM CDT Hospital Encounter [facility] Roger Hoskins MD [address] [place] [id number] Discharge Disposition: Discharge to home or self care Social History Tobacco Use Types Packs/Day Years Used Date Smoking Tobacco: Former Alcohol Use Standard Drinks/Week Comments No 0 (1 standard drink = 0.6 oz pur e alcohol) Sex and Gender Information Value Date Recorded Sex Assigned at Not on file 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 Admit Date: 01/05/2017 Consult: Roger Hoskins M.D. Disch. Date: 01/05/2017 CONSULTING PHYSICIAN Roger Hoskins MD CHIEF COMPLAINT Polycythemia vera. JORGE Cedeño returns for followup regarding his polycythemia vera. Last phlebotomy was earlier this year. He denies any new problem, no fevers, infections, pruritus, neurologic symptoms, chest pain, or shortness of breath. His appetite has been fair. Weight stable at 184. MEDICATIONS Per EMR. PHYSICAL EXAMINATION Vital Signs: Pulse 83 and regular, blood pressure 147/80, temperature 96.2, O2 saturation room air 98%. Weight 184. Nodes: No palpable adenopathy. Skin is without lesions or rash. HEENT: Sclerae nonicteric. Extraocular movements are intact. Pupils are equal, round and reactive to light. Oral cavity without lesions or erythema. Neck is supple without thyromegaly or JVD. Lungs are clear to auscultation without rhonchi or wheeze. Cardiac: Regular rate and rhythm without murmurs, gallops, or rubs. Abdomen: Bowel sounds are present. Mild tenderness in the right upper quadrant. There is a palpable abdominal mass on the left side, found on exam one month ago. It has dramatically decreased in size. Extremities: No edema, pulses intact. Neurologic examination shows him to be alert and oriented. Normal motor and sensory function. LABORATORY Hemoglobin 14.0. White blood count 6900, platelets 187,000. ASSESSMENT AND PLAN 1. Polycythemia vera. Patient elects not to have phlebotomy at this time. Return to see me in approximately 1 month for CBC, possible phlebotomy. 2. History of hypertension, controlled. 3. History of cardiovascular disease, asymptomatic. 4. History of hyperlipidemia. 5. History of chronic obstructive pulmonary disease. No new symptoms. Electronically Authenticated by: Roger Hoskins MD On 01/12/2017 07:10 PM CDT Roger Hoskins M.D. [facility] TD: 01/05/2017 14:29 CC: Wesley Em M.D. documented in this encounter Plan of Treatment Not on file documented as of this encounter Procedures Procedure Name Priority Date/Time Associated Diagnosis Comments DISCHARGE LABORATORY CUMULATIVE REPORT 01/06/2017 12:00 AM CDT POCT CBC Infusion-Onc 01/05/2017 11:00 AM CDT documented in this encounter Results * DISCHARGE LABORATORY CUMULATIVE REPORT (01/06/2017 12:00 AM CDT) Narrative 01/06/2017 12:00 AM CDT Ordered by an unspecified provider. us Historical Provider LAB BLOOD ORDERABLES Iwona l Result * POCT CBC (01/05/2017 11:00 AM CDT) WBC, POC 6.68 3.80 - 9.80 K/cumm [facility] ([facility] RBC, POC 4.70 4.50 - 5.70 M/cumm [facility] ([facility] Hgb, POC 14.0 13.8 - 17.2 g/dL [facility] ([facility] Hct, POC 40.8 40.7 - 50.3 % [facility] MCV, POC 86.8 80.0 - 100.0 fL [facility] ([facility] MCH, POC 29.8 26.7 - 33.7 pg [facility] ([facility] MCHC, POC 34.3 32.7 - 36.0 g/dL [facility] ([facility] Platelets, POC 187 140 - 440 K/cumm [facility] ([facility] MPV, POC 10.2 8.0 - 12.0 fL [facility] Neutrophil abs 4.51 1.60 - 7.00 K/cumm [facility] ([facility]) Blood specimen (specimen) 01/05/2017 11:00 AM CDT 01/05/2017 11:01 AM CDT Narrative [facility] ([facility]) - 01/05/2017 11:03 AM CDT 2 [place] us Roger Hoskins MD POINT OF CARE TEST ORDER KATHLEEN Final Result [facility] ([facility]) [address] [facility] Department [place] [address] documented in this encounter Visit Diagnoses Not on filedocumented in this encounter Care Teams Internal Controls Analyst Relationship Specialty Start Date End Date Wesley Em MD PCP - General 09/30/16 12/01/21 documented as of this encounter
--- OUTSIDE RECORDS SUMMARY | 2024-06-18 18:15 | XMS_ITS | Encounter Summary ---
Author Organization [facility] Healthcare Address [address] [place] [address] Care Team Providers Care Wrap Turner Name Role Phone Wesley Em MD Primary Care Provider [phone] Encounter Details Date Type Department Care Team (Late st Contact Info) Description 02/06/2017 10:22 AM CDT - 02/06/2017 11:59 PM CDT Hospital Encounter [facility] Roger Hoskins MD [address] [place] [id number] Discharge Disposition: Discharge to home or self care Social History Tobacco Use Types Packs/Day Years Used Date Smoking Tobacco: Former Smokeless Tobacco: Never Alcohol Use Standard Drinks/Week Comments No 0 (1 standard drink = 0.6 oz pur e alcohol) Sex and Gender Information Value Date Recorded Sex Assigned at Not on file 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 us Historical Provider LAB BLOOD ORDERABLES Iwona l Result * eGFR (02/06/2017 10:50 AM CDT) eGFR >60 mL/min/1.7 3 m2 [facility] ([place]) Comment: Interpretive Data Reference Interval Normal ?>/= 90 mL/min/1.73m2 Mildly decreased* ? 60 - 89 mL/min/1.73m2 Mildly to moderately decreased ?45 - 59 mL/min/1.73m2 Moderately to severely decreased ??30 - 44 mL/min/1.73m2 Severely decreased ?15 - 29 mL/min/1.73m2 Kidney Failure ?< 15 ??mL/min/1.73m2 *Relative to young adult level If -Lebanese multiply value by 1.16. Estimated glomerular filtration [...] was last reviewed 2016. Blood specimen (specimen) 02/06/2017 10:50 AM CDT 02/06/2017 11:25 AM CDT us Roger Hoskins MD LAB BLOOD ORDERABLES Fin al Result [facility] ([place]) 1 [facility] Department [place] [address] * (ABNORMAL) Basic metabolic panel (02/06/2017 10:50 AM CDT) Sodium 140 135 - 145 mmol/L [facility] ([facility]) Potassium 4.0 3.5 - 5.1 mmol/L [facility] ([facility]) Chloride 104 97 - 110 mmol/L [facility] ([facility]) CO2 22 22 - 32 mmol/L [facility] ([facility] Anion gap 14 8 - 16 mmol/L [facility] ([place]) Glucose 153 70 - 199 mg/dL [facility] ([place]) Comment: Interpretive Data Note:The glucose is assumed non fasting Fastin-99 mg/dL Random: ??70-199 mg/dL Either a fasting glucose > 126 mg/dL or a random glucose > 200 mg/dL plus symptoms is diagnostic of diabetes when confirmed on another day. Fasting values > 100 mg/dL but < 125 mg/dL are diagnostic of impaired fasting glucose. Current interpretive data was last revised on 2014. BUN 21.5 8.0 - 25.0 mg/dL [facility] ([place]) Creatinine 1.04 0.70 - 1.30 mg/dL [facility] ([place]) Calcium 8.7 8.6 - 10.2 mg/dL [facility] ([place]) BUN/creat ratio 21(H) 10 - 20 [facility] ([place]) Blood specimen (specimen) 02/06/2017 10:50 AM CDT 02/06/2017 11:25 AM CDT Narrative [facility] ([place]) - 02/06/2017 12:13 PM CDT 1 [place] us Roger Hoskins MD LAB BLOOD ORDERABLES Fin al Result [facility] ([place]) 1 [facility] Department [place] [address] * POCT CBC (02/06/2017 10:50 AM CDT) WBC, POC 7.92 3.80 - 9.80 K/cumm [facility] ([place]) RBC, POC 4.80 4.50 - 5.70 M/cumm [facility] ([place]) Hgb, POC 14.1 13.8 - 17.2 g/dL [facility] ([place]) Hct, POC 41.2 40.7 - 50.3 % [facility] ([place]) MCV, POC 85.8 80.0 - 100.0 fL [facility] ([place]) MCH, POC 29.4 26.7 - 33.7 pg [facility] ([place]) MCHC, POC 34.2 32.7 - 36.0 g/dL [facility] ([place]) Platelets, POC 190 140 - 440 K/cumm [facility] ([place]) MPV, POC 10.2 8.0 - 12.0 fL [facility] ([place]) Neutrophil abs 5.25 1.60 - 7.00 K/cumm [facility] ([place]) Blood specimen (specimen) 02/06/2017 10:50 AM CDT 02/06/2017 10:57 AM CDT Narrative [facility] ([place]) - 02/06/2017 10:59 AM CDT 1 [place] us Roger Hoskins MD POINT OF CARE TEST ORDER KATHLEEN Final Result [facility] ([place]) 1 [facility] Department [place] [address] documented in this encounter Visit Diagnoses Not on filedocumented in this encounter Care Teams Wrap Turner Relationship Specialty Start Date End Date Wesley Em MD PCP - General 09/30/16 12/01/21 documented as of this encounter
--- OUTSIDE RECORDS SUMMARY | 2024-06-18 18:15 | XMS_ITS | Encounter Summary ---
Author Organization [facility] Healthcare Address [address] [place] [address] Care Team Providers Care Display Department Manager Name Role Phone Wesley Em MD Primary Care Provider [phone] Encounter Details Date Type Department Care Team (Late st Contact Info) Description 12/24/2016 9:30 PM CDT - 12/24/2016 10:43 PM CDT Emergency [facility] Emergency Department [address] [place] [address] Jose De Jesus Rushing Jr., MD [address] [place] [id number] Discharge Disposition: Discharge to home or self care Social History Tobacco Use Types Packs/Day Years Used Date Smoking Tobacco: Former Alcohol Use Standard Drinks/Week Comments No 0 (1 standard drink = 0.6 oz pur e alcohol) Sex and Gender Information Value Date Recorded Sex Assigned at Not on file 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
--- OUTSIDE RECORDS SUMMARY | 2024-06-18 18:15 | XMS_ITS | Encounter Summary ---
Author Organization [facility] Medical Group Address [address] [place] [address] Care Team Providers Care Food Science Technician Name Role Phone Wesley Em MD Primary Care Provider [phone] Encounter Details Date Type Department Care Team (Late st Contact Info) Description 12/14/2016 7:45 AM CDT Lab [facility] [address] [place] [address] [address] [place] [id number] Social History Tobacco Use Types Packs/Day Years Used Date Smoking Tobacco: Former Alcohol Use Standard Drinks/Week Comments No 0 (1 standard drink = 0.6 oz pur e alcohol) Sex and Gender Information Value Date Recorded Sex Assigned at Not on file 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
--- OUTSIDE RECORDS SUMMARY | 2024-06-18 18:15 | XMS_ITS | Encounter Summary ---
Author Organization [facility] Healthcare Address [address] [place] [address] Care Team Providers Care Oil Operator Name Role Phone Wesley Em MD Primary Care Provider [phone] Encounter Details Date Type Department Care Team (Latest Contact Info) Description 03/22/2017 8:59 AM CDT - 03/22/2017 11:59 PM CDT Hospital Encounter [facility] OP INTERIM Lee Pierre MD [address] [address] Discharge Disposition: Discharge to home or self care Social History Tobacco Use Types Packs/Day Years Used Date Smoking Tobacco: Former Smokeless Tobacco: Never Alcohol Use Standard Drinks/Week Comments No 0 (1 standard drink = 0.6 oz pur e alcohol) Sex and Gender Information Value Date Recorded Sex Assigned at Not on file 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 Gender Identity Not on file Sexual [...] Procedure Name Priority Date/Time Associated Diagnosis Comments BLOOD GAS, VENOUS Routine 03/22/2017 9:5 7 AM CDT EGFR Infusion-Onc 03/22/2017 9:25 AM CDT MISCELLANEOUS BLOOD RESULT Routine 03/22/2017 9:25 AM CDT IRON PROFILE W/ IBC Infusion-Onc 03/22/2017 9:25 AM CDT POCT CBC Infusion-Onc 03/22/2017 9:25 AM CDT RETICULOCYTES Infusion-Onc 03/22/2017 9:25 AM CDT FERRITIN Infusion-Onc 03/22/2017 9:25 AM CDT BASIC METABOLIC PANEL Infusion-Onc 03/22/2017 9:25 AM CDT DISCHARGE LABORATORY CUMULATIVE REPORT 03/22/2017 12:00 AM CDT documented in this encounter Results * Blood gas, venous (03/22/2017 9:57 AM CDT) Carbon monoxide venous 1.8 % [facility] ([place]) Comment: Interpretive Data NONSMOKERS: ??0.5-1.5% HBCO SMOKERS: ? 1-2 PACKS/DAY 4.0-5.0% HBCO ? >2 PACKS/DAY 8.0-9.0% HBCO Toxic: ? Greater than 20% HBCO Lethal: ?Greater than 50% HBCO Current interpretive data was last revised on 2014. Blood specimen (specimen) 03/22/2017 9:57 AM CDT 03/22/2017 10:30 AM CDT Lee Pierre MD LAB BLOOD ORDERABLES F inal Result Performing Organization Address City/[facility]/ZIP Co de Phone Number [facility] ([place]) 1 [facility] [place] [address] * (ABNORMAL) Ferritin (03/22/2017 9:25 AM CDT) Pathologist [facility] Ferritin 20(L) 25 - 320 ng/mL [facility] ([place]) Blood specimen (specimen) 03/22/2017 9:25 AM CDT 03/22/2017 10:12 AM CDT Narrative [facility] ([place]) - 03/22/2017 11:10 AM CDT ADD TO LABS FROM TODAY Lee Pierre MD LAB BLOOD ORDERABLES F inal Result [facility] ([place]) 1 [facility] [place] [address] * eGFR (03/22/2017 9:25 AM CDT) Pathologist [facility] eGFR >60 mL/min/1.7 3 m2 [facility] ([place]) Comment: Interpretive Data Reference Interval Normal ?>/= 90 mL/min/1.73m2 Mildly decreased* ? 60 - 89 mL/min/1.73m2 Mildly to moderately decreased ?45 - 59 mL/min/1.73m2 Moderately to severely decreased ??30 - 44 mL/min/1.73m2 Severely decreased ?15 - 29 mL/min/1.73m2 Kidney Failure ?< 15 ??mL/min/1.73m2 *Relative to young adult level If -Cymro multiply value by 1.16. Estimated glomerular filtration [...] was last reviewed 2016. Blood specimen (specimen) 03/22/2017 9:25 AM CDT 03/22/2017 10:13 AM CDT Lee Pierre MD LAB BLOOD ORDERABLES F inal Result [facility] ([place]) 1 [facility] Department [place] [address] * Basic metabolic panel (03/22/2017 9:25 AM CDT) Sodium 142 135 - 145 mmol/L [facility] ([place]) Potassium 3.8 3.5 - 5.1 mmol/L [facility] ([place]) Chloride 105 97 - 110 mmol/L [facility] ([place]) CO2 25 22 - 32 mmol/L [facility] ([place]) Anion gap 12 8 - 16 mmol/L [facility] ([place]) Glucose 124 70 - 199 mg/dL [facility] ([facility]) Comment: Interpretive Data Note:The glucose [...] data was last revised on 2014. BUN 16.9 8.0 - 25.0 mg/dL [facility] ([place]) Creatinine 1.03 0.70 - 1.30 mg/dL [facility] ([place]) Calcium 8.9 8.6 - 10.2 mg/dL [facility] ([place]) BUN/creat ratio 16 10 - 20 [facility] ([place]) Blood specimen (specimen) 03/22/2017 9:25 AM CDT 03/22/2017 10:13 AM CDT us Lee Pierre MD LAB BLOOD ORDERABLES F inal Result [facility] ([place]) 1 [facility] [place] [address] * (ABNORMAL) Iron profile (03/22/2017 9:25 AM CDT) Iron 30(L) 50 - 155 mcg/dL [facility] ([place]) UIBC 238 110 - 350 mcg/dL [facility] ([place]) TIBC 268 220 - 420 mcg/dL [facility] ([place]) Transferrin saturation 11(L) 15 - 50 % [facility] ([place]) Blood specimen (specimen) 03/22/2017 9:25 AM CDT 03/22/2017 10:12 AM CDT Narrative [facility] ([place]) - 03/22/2017 10:48 AM CDT ADD TO LABS FROM TODAY us Lee Pierre MD LAB BLOOD ORDERABLES F inal Result [facility] ([place]) 1 [facility] [place] [address] * Miscellaneous blood result (03/22/2017 9:25 AM CDT) Test name, chem JAKXB JAK2 Exon Mutation Detection, B [facility] ([place]) Misc See Comment [facility] ([place]) Comment: Test ?Result ?Flag ??Unit ??RefValue JAK2 Exon 12 Mutation Detection, B ??JAK2 Sequencing Result ?see interpretation ??Final Diagnosis: ?See Comment ?Peripheral blood, ??JAK2 ??exons 12-15 genetic alteration ?analysis: ?Negative. No genetic alterations were detected in ??JAK2 , ?exons 12-15. ?A negative test result does not exclude the possibility of a ?myeloproliferative neoplasm (MPN). The sensitivity of this ?assay is approximately 20%, such that samples containing ?lower percentages of mutated nucleic acid may not be ?identified. If clinical suspicion is high for polycythemia ?vera, the test JAK2 V617F Mutation Detection (Test ID: ?JAK2B, JAK2M, or JAK2V) should be considered to obtain a ?sensitive screen for the JAK2 V617F alteration. If clinical ?suspicion is high for primary myelofibrosis (PMF) or ?essential thrombocythemia (ET), consider additional testing ?using the Myeloproliferative Neoplasm, JAK2 V617F with ?Reflex to CALR and MPL test (Test ID: MPNR), which ?reflexively tests for the presence of a JAK2 V617F, CALR, ?or MPL alteration. Clinicopathologic correlation is ?recommended for a definitive diagnosis. ?Signing Pathologist: Jesus Cox M.D. ? ADDITIONAL INFORMATION ?Method summary - JAK2 exons 12-15 mutation analysis: Total ?RNA was extracted and converted to cDNA, followed by [place]ick ?sequencing of JAK2, exons 12-15 (see [facility] ?Laboratories Interpretive Handbook for method details). The ?sensitivity of this assay is approximately 20%, such that ?samples containing lower percentages of mutated nucleic ?acid will appear negative. The reference gene transcript ?used for variant annotation is: [id number])[id number]. ?This test was developed and its performance characteristics ?determined by [facility] in a manner consistent with CLIA ?requirements. This test has not been cleared or approved by ?the U.S. Food and Drug Administration. ?Test Performed by: ?[facility] ([place] [address] [place] [id number] Blood specimen (specimen) 03/22/2017 9:25 AM CDT 03/22/2017 10:36 AM CDT us Lee Pierre MD LAB BLOOD ORDERABLES F inal Result [facility] ([place]) 1 [facility] [place] [address] * Reticulocytes (03/22/2017 9:25 AM CDT) Retics 0.88 0.40 - 2.90 % [facility] ([place]) Retics, absolute 0.0440 0.0210 - 0.1350 M/cumm [facility] ([place]) Reticulocyte Hgb 28.3 25.4 - 38.4 pg [facility] ([place]) Blood specimen (specimen) 03/22/2017 9:25 AM CDT 03/22/2017 10:12 AM CDT Narrative [facility] ([place]) - 03/22/2017 10:27 AM CDT ADD TO LABS FROM TODAY Lee Pierre MD LAB BLOOD ORDERABLES F inal Result [facility] ([place]) 1 [facility] [place] [address] * POCT CBC (03/22/2017 9:25 AM CDT) WBC, POC 5.07 3.80 - 9.80 K/cumm [facility] ([place]) RBC, POC 5.13 4.50 - 5.70 M/cumm [facility] ([place]) Hgb, POC 14.2 13.8 - 17.2 g/dL [facility] ([place]) Hct, POC 42.2 40.7 - 50.3 % [facility] ([place]) MCV, POC 82.3 80.0 - 100.0 fL [facility] ([place]) MCH, POC 27.7 26.7 - 33.7 pg [facility] ([place]) MCHC, POC 33.6 32.7 - 36.0 g/dL [facility] ([place]) Platelets, POC 188 140 - 440 K/cumm [facility] ([place]) MPV, POC 10.8 8.0 - 12.0 fL [facility] ([place]) Neutrophil abs 2.97 1.60 - 7.00 K/cumm [facility] ([place]) Blood specimen (specimen) 03/22/2017 9:25 AM CDT 03/22/2017 9:26 AM CDT Lee Pierre MD POINT OF CARE TEST ORD ERABLES Final Result [facility] ([place]) 1 [facility] [place] [address] * DISCHARGE LABORATORY CUMULATIVE REPORT (03/22/2017 12:00 AM CDT) Narrative 03/22/2017 12:00 AM CDT Ordered by an unspecified provider. us Historical Provider LAB BLOOD ORDERABLES Iwona l Result documented in this encounter Visit Diagnoses Not on filedocumented in this encounter Care Teams Oil Operator Relationship Specialty Start Date End Date Wesley Em MD PCP - General 09/30/16 12/01/21 documented as of this encounter
--- OUTSIDE RECORDS SUMMARY | 2024-06-18 18:15 | XMS_ITS | Encounter Summary ---
Author Organization [facility] Medical [facility] Address [address] [place] [address] Care Team Providers Care Flat Cutter Name Role Phone Wesley Em MD Primary Care Provider [phone] Reason for Visit * Reason Comments Follow-up 3 mon fu on hyperten ted Earache knot behind left ear Encounter Details Date Type Department Care Team (Late st Contact Info) Description 04/18/2017 10:15 AM CDT Office Visit [facility] [address] [facility] [address] [place] [address] Wesley Em MD [address] [place] [address] [address] [place] [address] Type 2 diabetes mellitus without complication, without long-term current use of insulin ([facility]) (Primary Dx); BMI 28.0-28.9,adult; Essential hypertension; Mixed hyperlipidemia; H/O polycythemia Social History Tobacco Use Types Packs/Day [...] Sign Reading Time Taken Comments Blood Pressure 148/84 04/18/2017 10:23 AM CDT Pulse 65 04/18/2017 10:23 AM CDT Temperature - - Respiratory Rate 18 04/18/2017 10:23 AM CDT Oxygen Saturation 97% 04/18/2017 10:23 AM CDT Inhaled Oxygen Concentration - - Weight 85.5 kg (188 lb 8 oz) 04/18/2017 10:23 AM CDT Height 174 cm (5' 8.5 ) 04/18/2017 10:23 AM CDT Body Mass Index 28.24 04/18/2017 10:23 AM CDT documented in this encounter Progress Notes * Wesley Em MD - 04/18/2017 10:15 AM CDT Subjective/Objective Patient ID: Villa Zuniga is a 71 y.o. male. Chief Complaint Follow-up (3 mon fu on hypertension) and Earache (knot behind left ear) HPI 71-year-old seen today with his follow-up high blood pressure has a knot on his left ear. Otherwise he states he feels good he comes in typically in the spring for well examination is. 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 at all his blood counts have normalized does have history of coronary disease but been quiescent she had 3 stent placement Immunization she refuses all immunizations including flu shots pneumonia shots we talked about the risk and benefits of vaccines but he declines all currently Medical surgical hypertension hyperlipidemia coronary disease with stent placement x3 in 2013 diabetes tobacco abuse history bilateral total knee surgeries bilateral carpal tunnel release Family social lives in a local town retired all retired from [employer] where he worked for 40 years several grown children he is accompanied by his health maintenance he is due back for colonoscopy I believe this year Review of Systems no shortness of breath chest pain orthopnea Vitals: 04/18/17 1023 BP: 148/84 BP Location: Right arm Patient Position: Sitting Pulse: 65 Resp: 18 SpO2: 97% Weight: 85.5 kg (188 lb 8 oz) Height: 174 cm (5' 8.5 ) Physical Exam Feet: Right Foot: Monofilament exam normal. Left Foot: Monofilament exam normal. The nose throat unremarkable with exception of 2 cm cyst on the left ear and postauricular space isno lymphadenopathy in the neck neck is supple lungs are clear cardiovascular regular monofilament test is normal bilaterally Assessment/Plan Diagnoses and all orders for this visit: 1. Type 2 diabetes mellitus without complication, without long-term current use of insulin (CMS/HCC) (Primary) 2. BMI 28.0-28.9,adult 3. Essential hypertension 4. Mixed hyperlipidemia 5. H/O polycythemia He has diabetes under pretty good control so he is going to continue same looks good no hypoglycemic spells he feels great blood pressure is under good control as well cholesterol is good is on statin therapy he changes mind about immunizations the let us know will follow up with Hematology regarding his polycythemia He wants to see a specialist regarding the lump behind the left ear this seems to be a sebaceous cyst not lymph gland but he will see see ENT for his request for possible incision drainage follow-up 4 months Side effects, risks, interactions reviewed [...] without long-term current use of insulin (CMS/HCC) (HCC)- Primary BMI 28.0-28.9,adult Essential hypertension Unspecified essential hypertension Mixed hyperlipidemia H/O polycythemia documented in this encounter Care Teams Flat Cutter Relationship Specialty Start Date End Date Wesley Em MD PCP - General 09/30/16 12/01/21 documented as of this encounter
--- OUTSIDE RECORDS SUMMARY | 2024-06-18 18:15 | XMS_ITS | Encounter Summary ---
Author Organization [facility] Address [address] [place] [address] Care Team Providers Care Director Recreation Name Role Phone Wesley Em MD Primary Care Provider [phone] Reason for Visit * Reason Comments Pain * Surgical (Routine) - Closed Specialty Diagnoses / Procedures Referred By Jomar villela Referred To Contact Orthopedic Surgery Diagnoses Biceps tendon rupture, left, initial encounter Wesley Em MD Phone: tel: fax: Yo Schaefer MD Phone: tel: fax: Referral ID Status Reason Start Date Expiration Date V isits Requested Visits Authorized [id number] Closed Specialty Services Required 12/26/2016 06/24/2017 1 1 Encounter Details Date Type Department Care Team (Late st Contact Info) Description 12/27/2016 3:00 PM CDT Office Visit [facility] Orthopedics and Sports Medicine [address] [place] [phone] Yo Schaefer MD [address] [place] [address] [address] [place] [address] Rupture of distal biceps tendon, left, initial encounter (Primary Dx); Traumatic hematoma of elbow, left, initial encounter Social History Tobacco Use Types Packs/Day Years Used Date Smoking Tobacco: Former Alcohol Use Standard Drinks/Week Comments No 0 (1 standard drink = 0.6 oz pur e alcohol) Sex and Gender Information Value Date Recorded Sex Assigned at Not on file 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 Gender Identity Not on file Sexual Orientation Straight 01/23/2021 10 :16 PM CDT documented as of this encounter Last Filed Vital Signs Vital Sign Reading Time Taken Comments Blood Pressure 127/80 12/27/2016 3:24 PM CDT Pulse 70 12/27/2016 3:24 PM CDT Temperature - - Respiratory Rate - - Oxygen Saturation - - Inhaled Oxygen Concentration - - Weight 83.3 kg (183 lb 9.6 oz) 12/27/2016 3:24 P M CDT Height 172.7 cm (5' 8 ) 12/27/2016 3:24 PM CDT Body Mass Index 27.92 12/27/2016 3:24 PM CDT documented in this encounter Patient Instructions * Patient Instructions* Yo Schaefer MD - 12/27/2016 3:00 PM CDT Dx and Tx information given to patient today along with [employer] website. documented in this encounter Progress Notes * Yo Schaefer MD - 12/27/2016 3:00 PM CDT NEW PATIENT VISIT Subjective CHIEF COMPLAINT He had concerns including Pain of the Left Elbow. HISTORY OF PRESENT ILLNESS Patient presents today with complaints of left elbow pain. He denies any abrupt trauma. He states Monday (12/23/16) he noted a small area of bruising on his left upper arm after performing some house maintenance. By that evening, it had been substantially worse, and he went to [facility] emergency department. He was told to d/c his Plavix and follow up with Dr. Em. He states lifting and cold worsens his pain. Heat improves it. PAST MEDCIAL HISTORY He has a past medical history of Chronic obstructive pulmonary disease (CMS/HCC); Diabetes mellitus(CMS/HCC); OTHER MEDICAL (2012); OTHER MEDICAL; Hyperlipidemia; and Hypertension. PAST SURGICAL HISTORY He has a past surgical history that includes Other surgical history (2003); Other surgical history;and Other surgical history (2012). MEDICATIONS He has a current medication list which includes the following prescription(s): aspirin, atorvastatin, plavix, finasteride, metoprolol, potassium citrate er, ranitidine, and tamsulosin. ALLERGIES He is allergic to apple and ciprofloxacin. SOCIAL HISTORY He reports that he has quit smoking. He does not have any smokeless tobacco history on file. He reports that he does not drink alcohol or use drugs. FAMILY HISTORY His family history includes Alzheimer's disease in his father; Cancer in his mother; Diabetes in his mother; Heart disease in his mother; Hypertension in his mother; Stroke (age of onset: 66) in his mother. REVIEW OF SYSTEMS Review of Systems Constitutional: [...] is not hyperactive. Objective PHYSICAL EXAM BP 127/80 (BP Location: Left arm, Patient Position: Sitting) Pulse 70 Ht 172.7 cm (5' 8 ) Wt 83.3 kg (183 lb 9.6 oz) BMI 27.92 kg/m?? Right elbow The patient has normal inspection, palpation, range of motion, strength, and stability of the rightelbow. Left elbow Inspection Swelling: present Surgical scar/wound: absent. Palpation Tenderness: present. The tenderness is location in the biceps tendon area(s). Range of motion The patient has pain with range of motion. Active forearm supination: 50. The patient has pain with active forearm supination. Passive elbow flexion: 120. The patient has pain with passive elbow flexion. Strength The patient has 5/5 strength throughout with exceptions as noted below. Elbow flexion: painful and 3/5 Forearm supination: 2/5 and painful Neurovascular The patient has normal vascular on the left side of their body. The patient has normal sensation on the left side of their body. Tests Hook sign: positive Comments: Severe, diffuse ecchymosis to the medial elbow/cubital fossa. REVIEW OF X-RAYS/STUDIES/LABS XR Elbow Left 3+ View X-ray of the left elbow viewed and interpreted. There is no evidence of fracture, subluxation, or bony abnormality. Joint spaces well maintained Assessment/Plan Villa was seen today for pain. Diagnoses and all orders for this visit: Rupture of distal biceps tendon, left, initial encounter - XR Elbow Left 3+ View Traumatic hematoma of elbow, left, initial encounter Procedures PLAN I discussed the nature of the patient's condition in the clinic today. Risks and benefits of distalbicep tendon repair were discussed the patient to include bleeding, infection, damage to surrounding structures including nerves and vessels. The patient understood these risks and agreed to proceed with conservative treatment. ROM exercises encouraged tylenol OTC prn Yo Schaefer MD documented in this encounter Plan of Treatment [...] documented in this encounter Visit Diagnoses Diagnosis Rupture of distal biceps tendon, left, initial encounter- Primary Traumatic hematoma of elbow, left, initial encounter documented in this encounter Care Teams Director Recreation Relationship Specialty Start Date End Date Wesley Em MD PCP - General 09/30/16 12/01/21 documented as of this encounter
--- OUTSIDE RECORDS SUMMARY | 2024-06-18 18:15 | XMS_ITS | Encounter Summary ---
Author Organization [facility] Address [address] [place] [address] Care Team Providers Care Machine Container Washer Name Role Phone Wesley Em MD Primary Care Provider [phone] Encounter Details Date Type Department Care Team (Late st Contact Info) Description 04/26/2017 2:30 PM CDT - 04/26/2017 11:59 PM CDT Hospital Encounter [facility] Jerod Espinoza, DO [address] [place] [address] Discharge Disposition: Discharge to home or self care Social History Tobacco Use Types Packs/Day Years Used Date Smoking Tobacco: Former Smokeless Tobacco: Never Alcohol Use Standard Drinks/Week Comments No 0 (1 standard drink = 0.6 oz pur e alcohol) Sex and Gender Information Value Date Recorded Sex Assigned at Not on file 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 20 tablet 04/26/2017 05/06/2017 atorvastatin (LIPITOR) 40 mg tablet take 1 [...] Procedure Name Priority Date/Time Associated Diagnosis Comments CYTOLOGY 04/26/2017 12:00 AM CDT CYTOLOGY Routine 04/26/2017 12:00 AM CDT documented in this encounter Results * CYTOLOGY (04/26/2017 12:00 AM CDT) Narrative 04/26/2017 12:00 AM CDT Ordered by an unspecified provider. us Historical Provider LAB CYTOLOGY ORDERABLES F inal Result * Cytology (04/26/2017 12:00 AM CDT) 04/26/2017 04/27/2017 1:1 0 PM CDT Narrative 05/01/2017 9:09 AM CDT [facility] Department of Pathology [address] [place], [place] [id number] Final Report ?Patient Name: VILLA ALSTON SR Address: [address]: [address] ??[place], [place] Location: Lab Taken: 04/26/2017 Gender: M Received 04/27/2017 : 1945 (Age: 71) Hospital #: [id number] Accessioned: 04/28/2017 ?? Patient Type: CH Ref Lab Reported 05/01/2017 Physician(s): Dr. Jerod Espinoza, D.O. Dr. Jerod Espinoza, NitoO. ?? Diagnosis: Preauricular, left cyst, fine-needle aspirate ? 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 One ThinPrep made from fluid. One cell block made with all tissue cores submitted in one cassette. ??T.C. Microscopic Description: The left cyst specimen is received as one ThinPrep slide and slides from one cell block. ??The slides show abundant keratinous debris and mixed inflammatory cells including aggregates of neutrophils. ??In the appropriate clinical context these findings may be consistent with sampling of a keratinous cyst. ??Immunohistochemical stains show small aggregates of cells to be CD68 positive consistent with histiocytes. ??A p63 epithelial marker is largely negative. ??Clinical correlation and follow-up are recommended. Intradepartment consult: the case was shared as a QA. ? The performance characteristics of some immunohistochemical stains, fluorescence in-situ hybridization tests and immunophenotyping by flow cytometry cited in this report (if any) were determined by the Surgical Pathology Department at [facility] as part of an ongoing senior quality assurance engineer program and in compliance with federally [...] characteristics determined by the Surgical Pathology Department [facility]. ??It has not been cleared or approved by the [place]. Food and Drug Administration. Jerod Espinoza DO LAB CYTOLOGY ORDERABLES Iwona l Result documented in this encounter Visit Diagnoses Not on filedocumented in this encounter Care Teams Machine Container Washer Relationship Specialty Start Date End Date Wesley Em MD PCP - General 09/30/16 12/01/21 documented as of this encounter
--- OUTSIDE RECORDS SUMMARY | 2024-06-18 18:15 | XMS_ITS | Encounter Summary ---
Author Organization [facility] Healthcare Address [address] [place] [address] Care Team Providers Care Control Operator Name Role Phone Wesley Em MD Primary Care Provider [phone] Encounter Details Date Type Department Care Team (Late st Contact Info) Description 12/12/2016 9:13 AM CDT - 12/12/2016 11:59 PM CDT Hospital Encounter [facility] Sanchez Butterfield MD [address] [facility] [address] [address] Discharge Disposition: Discharge to home or self care Social History Tobacco Use Types Packs/Day Years Used Date Smoking Tobacco: Former Alcohol Use Standard Drinks/Week Comments No 0 (1 standard drink = 0.6 oz pur e alcohol) Sex and Gender Information Value Date Recorded Sex Assigned at Not on file Legal 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 Gender Identity Not on file Sexual [...] ONE CAPSULE BY MOUTH EVERY DAY 90 3 03/11/2008 12/14/2016 documented as of this encounter Discharge Disposition Disposition Code Departure Means Destination Discharge to home or self care documented in this encounter Plan of Treatment Not on file documented as of this encounter Procedures Procedure Name Priority Date/Time Associated Diagnosis Comments DISCHARGE LABORATORY CUMULATIVE REPORT 12/13/2016 12:00 AM CDT XR ABDOMEN AP 1V Routine 12/12/2016 2:[address] ABDOMEN PELVIS WO CONTRAST Routine 12/12/2016 2:42 PM CDT EGFR New Adm-Reg 12/12/2016 9:23 AM CDT BASIC METABOLIC PANEL New Adm-Reg 12/12/2016 9:23 AM CDT SCAN - RADIOLOGY/IMAGING 12/12/2016 DISCHARGE LABORATORY CUMULATIVE REPORT 12/12/2016 documented in this encounter Results * DISCHARGE LABORATORY CUMULATIVE REPORT (12/13/2016 12:00 AM CDT) Narrative 12/13/2016 12:00 AM CDT Ordered by an unspecified provider. us Historical Provider LAB BLOOD ORDERABLES Iwona l Result * XR Abdomen AP 1V (12/12/2016 2:48 PM CDT) Anatomical Region Laterality Modality Body N/A Radiographic Jennifer ging 12/12/2016 2:48 PM CDT Narrative 12/12/2016 2:48 PM CDT XR KUB ?[id number] ??Acc#: ??[id number] DATE OF EXAM: ??Dec 12 2016 ?? ADDENDUM #1 XR KUB ?[id number] HISTORY: BILATERAL KIDNEY STONES. COMPARISON: None available. FINDINGS: Calcifications left upper quadrant, primarily arterial/atherosclerotic changes. ??Tiny calcifications project over the left kidney. ??Bowel gas and fecal material superimposed the kidneys particularly the right kidney. ??Calcification lower left pelvis represents phlebolith. ??Some small bowel gas, nondilated. Moderate to large amount fecal material within the colon. Degenerative changes lumbar spine with curvature suggesting levoscoliosis. ??Degenerative change of the visualized portion lower thoracic spine with curvature suggesting dextroscoliosis. IMPRESSION: 1. ??TINY CALCIFICATIONS LEFT KIDNEY. ??CT DEMONSTRATED ATHEROSCLEROTIC CHANGES. 2. ??NONSPECIFIC NONOBSTRUCTIVE BOWEL GAS PATTERN. Electronically signed by: Reece Olvera M.D Edited by: Lilliana Hong ORIGINAL REPORT - ADDENDUM ABOVE XR KUB ?[id number] HISTORY: BILATERAL KIDNEY STONES. COMPARISON: None available. FINDINGS: Calcification left upper quadrant, primarily arterial/atherosclerotic changes. ??Tiny calcific patient project over the left kidney. ??Bowel gas and fecal material superimposed the kidneys vertically right kidney. ??Calcification lower left pelvis represents phlebolith. ??Some small bowel gas, nondilated. ??Moderate to large amount fecal material within the colon. ??Degenerative change lumbar spine with curvature suggesting levoscoliosis. ??Degenerative change of the visualized portion lower thoracic spine with curvature suggesting dextro scoliosis. IMPRESSION: 1. ??TINY CALCIFICATIONS LEFT KIDNEY. ??CT DEMONSTRATED ATHEROSCLEROTIC CHANGES. 2. ??NONSPECIFIC NONOBSTRUCTIVE BOWEL GAS PATTERN. Electronically signed by: Reece Olvera M.D Interpreting Physician: ??REECE OLVERA M.D. ??Read on: ??Dec 12 2016 10:08A Transcribed by: ??PSC ??On: Dec 12 2016 ??3:48P Approved Electronically by: ??REECE OLVERA M.D. ??on: ??Dec 12 2016 ??3:48P Ordering DR: DR SANCHEZ BUTTERFIELD Attending DR: DR SANCHEZ BUTTERFIELD Attending: ??DR SANCHEZ BUTTERFIELD Requesting: ??DR SANCHEZ BUTTERFIELD Requesting Fax: ??[phone] Attending Fax: ??[phone] Attending ID: ??[id number] Requesting ID: ??[id number] Report To 1 ID: ??[id number] Report To 1 Name: ??DR SANCHEZ BUTTERFIELD Report To 1 FAX: ??[phone] NextGen Order #: ?? Procedure Note Miscellaneous, Not In File / Provider, MD Wilian - 12/20/2016 XR KUB [id number] Acc#: [id number] DATE OF EXAM: Dec 12 2016 ADDENDUM #1 XR KUB [id number] HISTORY: BILATERAL KIDNEY STONES. COMPARISON: None available. FINDINGS: Calcifications left upper quadrant, primarily arterial/atherosclerotic changes. Tiny calcifications project over the left kidney. Bowel gas and fecal material superimposed the kidneys particularly the right kidney. Calcification lower left pelvis represents phlebolith. Some small bowel gas, nondilated. Moderate to large amount fecal material within the colon. Degenerative changes lumbar spine with curvature suggesting levoscoliosis. Degenerative change of the visualized portion lower thoracic spine with curvature suggesting dextroscoliosis. IMPRESSION: 1. TINY CALCIFICATIONS LEFT KIDNEY. CT DEMONSTRATED ATHEROSCLEROTIC CHANGES. 2. NONSPECIFIC NONOBSTRUCTIVE BOWEL GAS PATTERN. Electronically signed by: Reece lOvera M.D Edited by: Lilliana Hong ORIGINAL REPORT - ADDENDUM ABOVE XR KUB [id number] HISTORY: BILATERAL KIDNEY STONES. COMPARISON: None available. FINDINGS: Calcification left upper quadrant, primarily arterial/atherosclerotic changes. Tiny calcific patient project over the left kidney. Bowel gas and fecal material superimposed the kidneys vertically right kidney. Calcification lower left pelvis represents phlebolith. Some small bowel gas, nondilated. Moderate to large amount fecal material within the colon. Degenerative change lumbar spine with curvature suggesting levoscoliosis. Degenerative change of the visualized portion lower thoracic spine with curvature suggesting dextro scoliosis. IMPRESSION: 1. TINY CALCIFICATIONS LEFT KIDNEY. CT DEMONSTRATED ATHEROSCLEROTIC CHANGES. 2. NONSPECIFIC NONOBSTRUCTIVE BOWEL GAS PATTERN. Electronically signed by: Reece Olvera M.D Interpreting Physician: REECE OLVERA M.D. Read on: Dec 12 2016 10:08A Transcribed by: [facility] On: Dec 12 2016 3:48P Approved Electronically by: REECE OLVERA M.D. on: Dec 12 2016 3:48P Ordering DR: DR SANCHEZ BUTTERFIELD Attending DR: DR SANCHEZ BUTTERFIELD Attending: DR SANCHEZ BUTTERFIELD Requesting: DR SANCHEZ BUTTERFIELD Requesting Attending Attending ID: [id number] Requesting ID: [id number] Report To 1 ID: [id number] Report To 1 Name: DR SANCHEZ BUTTERFIELD Report To 1 FAX: [phone] NextGen Order #: us Not In File Miscellaneous IMG XR PROCEDURES Iwona l Result * CT Abdomen Pelvis WO Contrast (12/12/2016 2:42 PM CDT) Anatomical Region Laterality Modality Body N/A Computed Tomogra phy 12/12/2016 2:42 PM CDT Narrative 12/12/2016 2:[address] [place] ??[id number] ??Acc#: ??[id number] DATE OF EXAM: ??Dec 12 2016 ?? [place] ??[id number] HISTORY: BILATERAL KIDNEY STONES. TECHNIQUE: Helical CT scan of the abdomen and pelvis obtained modified for stone protocol. ??No oral or IV contrast. ??Images from the upper poles kidneys to the ischial tuberosities. COMPARISON: 2016. FINDINGS: Bilateral pelvocaliectasis, mildly improved from the prior study. ??Mild ureteral dilatation bilaterally, which is slightly improved from the prior study primarily on the right. ??No ureteral calculus identified. ??Small calculus lower pole right kidney, nonobstructing. ??Small calcification left kidney, primarily arterial in nature. ??Cyst at the lower pole left kidney measures 3.9 cm. Bladder calculi, with the largest calculus measuring 11 mm. Decreased calculi within the urinary bladder compared with prior study. ??Now noted are calcifications centrally within the prostate, with only one small calcification previously. ??These may represent calculi within the urethra. ??Prostatomegaly. ??Some mild wall thickening urinary bladder, although this is underdistended. Prominent diverticulosis most prominent sigmoid colon. ??Minimal stranding, question of some minimal change of diverticulitis. Evaluation of the gastrointestinal tract is limited without oral contrast. ??Umbilical hernia containing only adipose tissue, maximal dimension 3.2 cm. ??Gallbladder unremarkable. ??Lack of intravenous contrast makes evaluation suboptimal for the liver, spleen, pancreas and kidneys. ??No adrenal mass identified. ??Atherosclerotic changes are noted. ??Degenerative changes lumbar spine. ??Adipose tissue left inguinal canal consistent with hernia. ??No bowel extending into the hernia. IMPRESSION: 1. ??PELVOCALIECTASIS OF THE KIDNEYS BILATERALLY, MILDLY IMPROVED FROM 2016. ??BILATERAL URETERAL DILATATION, MINIMALLY IMPROVED. 2. ??SMALL INTRARENAL CALCULUS RIGHT KIDNEY, NONOBSTRUCTING. 3. ??CALCULI WITHIN THE URINARY BLADDER, DECREASED IN NUMBER FROM THE PRIOR STUDY 2016. 4. ??CALCIFICATIONS/CALCULI WITHIN THE CENTRAL REGION OF THE PROSTATE. FINDINGS SUGGEST CALCULI WITHIN THE URETHRA. 5. ??PROSTATOMEGALY. ?? 6. ??LEFT RENAL CYST. 7. ??DIVERTICULOSIS. ??QUESTION SOME MINIMAL CHANGE OF DIVERTICULITIS. Edited by: Lilliana Hong Electronically signed by: Reece Olvera M.D Interpreting Physician: ??REECE OLVERA M.D. ??Read on: ??Dec 12 2016 11:53A Transcribed by: ??PSC ??On: Dec 12 2016 12:54P Approved Electronically by: ??REECE OLVERA M.D. ??on: ??Dec 12 2016 12:54P Ordering DR: DR SANCHEZ BUTTERFIELD Attending DR: DR SANCHEZ BUTTERFIELD Attending: ??DR SANCHEZ BUTTERFIELD Requesting: ??DR SANCHEZ BUTTERFIELD Requesting Fax: ??[phone] Attending Fax: ??[phone] Attending ID: ??[id number] Requesting ID: ??[id number] Report To 1 ID: ??[id number] Report To 1 Name: ??DR SANCHEZ BUTTERFIELD Report To 1 FAX: ??[phone] NextGen Order #: ?? Procedure Note Miscellaneous, Not In File / Provider, MD Wilian - 12/13/[place] [id number] Acc#: [id number] DATE OF EXAM: Dec [address] [place] [id number] HISTORY: BILATERAL KIDNEY STONES. TECHNIQUE: Helical CT scan of the abdomen and pelvis obtained modified for stone protocol. No oral or IV contrast. Images from the upper poles kidneys to the ischial tuberosities. COMPARISON: 2016. FINDINGS: Bilateral pelvocaliectasis, mildly improved from the prior study. Mild ureteral dilatation bilaterally, which is slightly improved from the prior study primarily on the right. No ureteral calculus identified. Small calculus lower pole right kidney, nonobstructing. Small calcification left kidney, primarily arterial in nature. Cyst at the lower pole left kidney measures 3.9 cm. Bladder calculi, with the largest calculus measuring 11 mm. Decreased calculi within the urinary bladder compared with prior study. Now noted are calcifications centrally within the prostate, with only one small calcification previously. These may represent calculi within the urethra. Prostatomegaly. Some mild wall thickening urinary bladder, although this is underdistended. Prominent diverticulosis most prominent sigmoid colon. Minimal stranding, question of some minimal change of diverticulitis. Evaluation of the gastrointestinal tract is limited without oral contrast. Umbilical hernia containing only adipose tissue, maximal dimension 3.2 cm. Gallbladder unremarkable. Lack of intravenous contrast makes evaluation suboptimal for the liver, spleen, pancreas and kidneys. No adrenal mass identified. Atherosclerotic changes are noted. Degenerative changes lumbar spine. Adipose tissue left inguinal canal consistent with hernia. No bowel extending into the hernia. IMPRESSION: 1. PELVOCALIECTASIS OF THE KIDNEYS BILATERALLY, MILDLY IMPROVED FROM 2016. BILATERAL URETERAL DILATATION, MINIMALLY IMPROVED. 2. SMALL INTRARENAL CALCULUS RIGHT KIDNEY, NONOBSTRUCTING. 3. CALCULI WITHIN THE URINARY BLADDER, DECREASED IN NUMBER FROM THE PRIOR STUDY 2016. 4. CALCIFICATIONS/CALCULI WITHIN THE CENTRAL REGION OF THE PROSTATE. FINDINGS SUGGEST CALCULI WITHIN THE URETHRA. 5. PROSTATOMEGALY. 6. LEFT RENAL CYST. 7. DIVERTICULOSIS. QUESTION SOME MINIMAL CHANGE OF DIVERTICULITIS. Edited by: Lilliana Hong Electronically signed by: Reece Olvera M.D Interpreting Physician: REECE OLVERA M.D. Read on: Dec 12 2016 11:53A Transcribed by: KYAW On: Dec 12 2016 12:54P Approved Electronically by: REECE OLVERA M.D. on: Dec 12 2016 12:54P Ordering DR: DR SANCHEZ BUTTERFIELD Attending DR: DR SANCHEZ BUTTERFIELD Attending: DR SANCHEZ BUTTERFIELD Requesting: DR SANCHEZ BUTTERFIELD Requesting Attending Attending ID: [id number] Requesting ID: [id number] Report To 1 ID: [id number] Report To 1 Name: DR SANCHEZ BUTTERFIELD Report To 1 FAX: [phone] NextGen Order #: us Not In File Miscellaneous IMG CT PROCEDURES Iwona l Result * eGFR (12/12/2016 9:23 AM CDT) eGFR >60 mL/min/1.7 3 m2 [facility] ([place]) Comment: Interpretive Data Reference Interval Normal ?>/= 90 mL/min/1.73m2 Mildly decreased* ? 60 - 89 mL/min/1.73m2 Mildly to moderately decreased ?45 - 59 mL/min/1.73m2 Moderately to severely decreased ??30 - 44 mL/min/1.73m2 Severely decreased ?15 - 29 mL/min/1.73m2 Kidney Failure ?< 15 ??mL/min/1.73m2 *Relative to young adult level If -Micronesian multiply value by 1.16. Estimated glomerular filtration [...] was last reviewed 2016. Blood specimen (specimen) 12/12/2016 9:23 AM CDT 12/12/2016 9:39 AM CDT Sanchez Butterfield MD LAB BLOOD ORDERABLES F inal Result [facility] ([place]) 1 [facility] [place] [address] * Basic metabolic panel (12/12/2016 9:23 AM CDT) Sodium 142 135 - 145 mmol/L [facility] ([place] Potassium 3.7 3.5 - 5.1 mmol/L [facility] ([place]) Chloride 105 97 - 110 mmol/L [facility] ([place]) CO2 27 22 - 32 mmol/L [facility] ([place]) Anion gap 10 8 - 16 mmol/L [facility] ([place]) Glucose 116 70 - 199 mg/dL [facility] ([place]) Comment: Interpretive Data [...] data was last revised on 2014. BUN 21.2 8.0 - 25.0 mg/dL [facility] ([place]) Creatinine 1.10 0.70 - 1.30 mg/dL [facility] ([place]) Calcium 8.7 8.6 - 10.2 mg/dL [facility] ([place]) BUN/creat ratio 19 10 - 20 [facility] ([place]) Blood specimen (specimen) 12/12/2016 9:23 AM CDT 12/12/2016 9:39 AM CDT Sanchez Butterfield MD LAB BLOOD ORDERABLES F inal Result [facility] ([place]) 1 [facility] [place] [address] * DISCHARGE LABORATORY CUMULATIVE REPORT (12/12/2016) us Provider Scanning LAB BLOOD ORDERABLES Final Res ult * SCAN - RADIOLOGY/IMAGING (12/12/2016) Anatomical Region Laterality Modality Other us Provider Scanning Final Result documented in this encounter Visit Diagnoses Not on filedocumented in this encounter Care Teams Control Operator Relationship Specialty Start Date End Date Wesley Em MD PCP - General 09/30/16 12/01/21 documented as of this encounter
--- OUTSIDE RECORDS SUMMARY | 2024-06-18 18:15 | XMS_ITS | Encounter Summary ---
Author Organization [facility] Medical Group Address [address] [address] Care Team Providers Care Health Services Coordinator Name Role Phone Wesley Em MD Primary Care Provider [phone] Reason for Visit * Reason Comments Hearing Loss Cyst behind left ear * Consultation (Routine) - Closed Specialty Diagnoses / Procedures Referred By Contdayami villela Referred To Contact Otolaryngology Diagnoses Hearing loss, unspecified hearing loss type, unspecified laterality Wesley Em MD Phone: tel: fax: Jerod Espinoza DO Phone: tel: fax: Referral ID Status Reason Start Date Expiration Date V isits Requested Visits Authorized [id number] Closed Specialty Services Required 04/18/2017 10/15/2017 1 1 Encounter Details Date Type Department Care Team (Late st Contact Info) Description 04/26/2017 2:00 PM CDT Office Visit [facility] [address] [facility] [address] [place] [phone] Jerod Espinoza DO [address] [place] [id number] Preauricular cyst (Primary Dx); Hearing loss, unspecified hearing loss type, unspecified laterality; Sensorineural hearing loss, bilateral Social History Tobacco Use Types Packs/Day Years Used Date Smoking Tobacco: Former Smokeless Tobacco: Never Alcohol Use Standard Drinks/Week Comments No 0 (1 standard drink = 0.6 oz pur e alcohol) Sex and Gender Information Value Date Recorded Sex Assigned at Not on file 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 Gender Identity Not on file Sexual Orientation Straight 01/23/2021 10 :16 PM CDT documented as of this encounter Last Filed Vital Signs Vital Sign Reading Time Taken Comments Blood Pressure 152/90 04/26/2017 2:19 PM CDT Pulse 60 04/26/2017 2:19 PM CDT Temperature - - Respiratory Rate 20 04/26/2017 2:19 PM CDT Oxygen Saturation - - Inhaled Oxygen Concentration - - Weight 85.2 kg (187 lb 12.8 oz) 04/26/2017 2:19 PM CDT Height 174 cm (5' 8.5 ) 04/26/2017 2:19 PM CDT Body Mass Index 28.14 04/26/2017 2:19 PM CDT documented in this encounter Patient Instructions * Patient Instructions* Dorinda Hatfield MA - 06/28/2017 11:28 AM BUSINESS MACHINES TEACHER Patient Education Hearing Loss WHAT YOU NEED TO KNOW: What is hearing loss? Hearing loss means you have trouble hearing or you cannot hear at all in one or both ears. Hearing loss can happen suddenly or slowly over time. What are the types of hearing loss? ?? Conductive hearing loss occurs when there is a problem with the outer or middle ear. Sound wavescannot reach your inner ear. This type of hearing loss may be caused by earwax buildup, fluid, or apunctured ear drum. It can often be treated by correcting the cause of the problem. ?? Sensorineural hearing loss is caused by damage to parts of the inner ear. There is usually no cure for sensorineural hearing loss. ?? Mixed hearing loss includes both conductive and sensorineural hearing loss. What causes hearing loss? ?? Aging ?? Regular exposure to loud noise ?? Head injury ?? Blockage in your ear caused by earwax buildup, swelling, cyst, or other growth ?? Medical conditions such as ear infections or otosclerosis (abnormal growth of bones in the ear) ?? Medicines that damage your ears such as aspirin, certain antibiotics, and diuretics What are the signs and symptoms that you may have hearing loss? ?? You often ask others to repeat what they just said. You may think people are mumbling or not speaking clearly. Family members ask you if your hearing is okay. ?? You cup your hand behind one of your ears when you listen. ?? You need to have the radio or television louder than usual. ?? You need to lean forward or turn your head to be able to hear. ?? You have ringing or buzzing in your ears, or you are dizzy. ?? You avoid certain situations because you have a hard time hearing. How is hearing loss diagnosed? Your healthcare provider will ask about your hearing loss and examine your ears. You may need any of the following: ?? Hearing tests may be done to check how well you hear whispered words or soft sounds such as a finger rub. ?? A tuning fork may be used to test your hearing. A tuning fork is made of metal. It vibrates and makes noise when it strikes an object. Your healthcare provider will hold the tuning fork to the left and right of your head. He will ask if you can hear the noise and feel the vibration in each ear. ?? Audiometry is a test used to measure how well you can hear different sounds. You will put on headphones that are attached to a machine. Sounds will be sent through the headphones. You will press abutton or raise your hand when you hear the sounds. Each ear will be tested separately. Another device will be placed on the bone behind your ear. The device will test how well vibration moves through the bones. This is called bone conduction. ?? Tympanometry is a test used to find hearing problems in the middle ear. A device is placed into your ear. The device creates pressure changes that make your eardrum vibrate. How is hearing loss treated? Treatment depends on the cause of your hearing loss. Removal of earwaxor treatment for any medical conditions that have caused your hearing loss may be needed. You may need any of the following: ?? A hearing aid is a small device that fits inside your ear and helps you hear better. Your healthcare provider can help you choose a hearing aid that is right for you. ?? A cochlear implant is a tiny device that is put into your cochlea (part of your inner ear) during surgery. This device can only be used in people with sensorineural hearing loss. ?? Assistive listening devices (ALDs) flower picker sound and send it through earphones or a headset. ALDs can help you hear better when you are in a place with background noise. Examples include theaters,classrooms, or auditoriums. ALDs are also available for phones. ALDs can be used alone or with hearing aids or cochlear implants. ?? Surgery may be needed if your hearing loss is caused by otosclerosis. Surgery may also be done to place small tubes in your ear. These tubes help drain fluid and help prevent ear infections. How can I manage my hearing loss? ?? Protect your hearing. Use ear plugs or ear protectors if you do activities that are very loud. These include using a lawnmower and power tools or going to a concert that has loud music. Use well-fitting foam earplugs that completely block your ear canal. Do not listen to loud music through headphones or earphones. ?? Tell people that you have hearing loss. Ask people to face you directly when they speak to you, and to slow down if they are speaking too fast. When you are in a group setting, sit in a location where you can clearly see the faces of the people who are speaking. Ask people not to speak loudly orshout when they are speaking to you. Try to talk with others in a quiet place. Background noise make s it harder for you to hear. ?? Pay close attention to your surroundings when you drive. Do not talk to people in your car whileyou are driving. Watch for problems on the road or approaching emergency vehicles. When should I seek immediate care? ?? You have fluid, pus, or blood leaking from your ear. ?? You have sudden, severe hearing loss. When should I contact my healthcare provider? ?? You have a fever. ?? You have ear pain that is getting worse. ?? You have ringing in your ears or dizziness that will not go away. ?? You have questions or concerns about your condition or care. CARE AGREEMENT: You have the right to help plan your care. Learn about your health condition and how it may be treated. Discuss treatment options with your caregivers to decide what care you want to receive. You always have the right to refuse treatment. The above information is an photographic aide only. It is not intended as medical advice for individual conditions or treatments. Talk to your doctor, nurse or pharmacist before following any medical regimen to see if it is safe and effective for you. ?? 2016 [employer]. Information is for End User's use only and may not be sold, redistributed or otherwise used for commercial purposes. All illustrations and images included in CareNotes?? are the copyrighted property of [employer] or [employer]. NESS MACHINES TEACHER NESS MACHINES TEACHER documented in this encounter Ordered Prescriptions Prescription Sig Dispense Quantity Refills Last Filled Start Date End Date sulfamethoxazole-t rimethoprim (BACTRIM DS) 800-160 mg per tablet Take 1 tablet by mouth 2 (two) times a day for 10 days. 20 tablet 04/26/2017 05/06/2017 documented in this encounter Progress Notes * Jerod Espinoza, - 04/26/2017 2:00 PM CDT Subjective/Objective Patient ID: Villa Zuniga is a 71 y.o. male. Chief Complaint Hearing Loss and Cyst behind left ear This is a pleasant 71-year-old male with a medical history of COPD, coronary artery disease, hypertension, hyperlipidemia, type 2 diabetes, GERD, BPH presents to my office related to hearing loss. Patient states his hearing loss has been slow and progressive over the years. Patient denies any priorotologic history. Patient has never undergone any otologic surgeries. Patient admits to occupational loud noise exposure. Denies any or recreational noise exposure. Patient is not experiencing any symptoms of tinnitus, vertigo, headaches or visual changes. An audiogram was performed today which demonstrated bilateral symmetrical downsloping mild to moderate to severe to profound sensorineural hearing loss. Speech mine promotor thresholds were 40 decibels hearing level left ear and 35 decibels hearing level right ear. Word recognition scores were 64% right ear and 52% left ear. Tympanometry demonstrated normal compliance bilaterally. Review of Systems Constitutional: Negative for appetite change, chills, diaphoresis, fatigue, fever and unexpected weight change. HENT: Positive for hearing loss. Negative for congestion, dental problem, drooling, ear discharge, ear pain, facial swelling, mouth sores, nosebleeds, postnasal drip, rhinorrhea, sinus pressure, sneezing, sore throat, tinnitus, trouble swallowing and voice change. Eyes: Negative for itching and visual disturbance. Respiratory: Negative for apnea, cough, choking, shortness of breath, wheezing and stridor. Cardiovascular: Negative for chest pain. Gastrointestinal: Negative for diarrhea, nausea and vomiting. Endocrine: Negative for cold intolerance, heat intolerance, polydipsia, polyphagia and polyuria. Genitourinary: Negative for dysuria, hematuria and urgency. Musculoskeletal: Negative for arthralgias, gait problem, joint swelling, myalgias, neck pain and neck stiffness. Skin: Negative for color change, pallor, rash and wound. Allergic/Immunologic: Negative for environmental allergies, food allergies and immunocompromised state. Neurological: Negative for dizziness, tremors, seizures, syncope, facial asymmetry, speech difficulty, weakness, light-headedness, numbness and headaches. Hematological: Negative for adenopathy. Does not bruise/bleed easily. Psychiatric/Behavioral: Negative for agitation, behavioral problems, confusion, sleep disturbance and suicidal ideas. Physical Exam Constitutional: He is oriented to person, place, and time. Vital signs are normal. He appears well-developed and well-nourished. HENT: Head: Normocephalic and atraumatic. Right Ear: Tympanic membrane, external ear and ear canal normal. Decreased hearing is noted. Left Ear: Tympanic membrane, external ear and ear canal normal. Decreased hearing is noted. Nose: Nose normal. Mouth/Throat: Uvula is midline and oropharynx is clear and moist. Eyes: Conjunctivae and lids are normal. Neck: Trachea normal, normal range of motion and phonation normal. Neck supple. Cardiovascular: Normal rate. Pulmonary/Chest: Effort normal. Abdominal: Soft. Neurological: He is alert and oriented to person, place, and time. He has normal strength. GCS eye subscore is 4. GCS verbal subscore is 5. GCS motor subscore is 6. Skin: Skin is warm, dry and intact. Psychiatric: He has a normal mood and affect. His speech is normal. Nursing note and vitals reviewed. Assessment/Plan Diagnoses and all orders for this visit: 1. Preauricular cyst (Primary) - FNA biopsy of Left preauricular cyst - Miscellaneous Test; Future 2. Hearing loss, unspecified hearing loss type, unspecified laterality - Ambulatory referral to ENT 3. Sensorineural hearing loss, bilateral Assessment & Plan: Patient demonstrates bilateral symmetrical downsloping sensorineural hearing loss. This appears to be progressive. Patient has been exposed to loud noises that are occupationally induced. Patient meets indications for hearing aid amplification. Patient was provided with educational material from our audiologists. Patient can schedule consultation for hearing aid amplification assessment. Recommend repeat audiogram in 5 years. Other orders - sulfamethoxazole-trimethoprim (BACTRIM DS) 800-160 mg per tablet; Take 1 tablet by mouth 2 (two) times a day for 10 days. documented in this encounter Miscellaneous Notes * Assessment & Plan Note - Jerod Espinoza DO - 05/05/2017 8:20 AM CDT Associated Problem(s): Sensorineural hearing loss, bilateral Patient demonstrates bilateral symmetrical downsloping sensorineural hearing loss. This appears to be progressive. Patient has been exposed to loud noises that are occupationally induced. Patient meets indications for hearing aid amplification. Patient was provided with educational material from our audiologists. Patient can schedule consultation for hearing aid amplification assessment. Recommend repeat audiogram in 5 years. documented in this encounter Plan of Treatment Not on file documented as of this encounter Visit Diagnoses Diagnosis Preauricular cyst- Primary Congenital preauricular cyst Hearing loss, unspecified hearing loss type, unspecified laterality Sensorineural hearing loss, bilateral documented in this encounter Orders Outpatient Referral Count Last Ordered Date Fir st Ordered Date AMB REFERRAL TO ENT 04/26/2017 documented in this encounter Care Teams Health Services Coordinator Relationship Specialty Start Date End Date Wesley Em MD PCP - General 09/30/16 12/01/21 documented as of this encounter
--- OUTSIDE RECORDS SUMMARY | 2024-06-18 18:16 | XMS_ITS | Encounter Summary ---
Author Organization [facility] Healthcare Address [address] [place] [address] Care Team Providers Care Licensing Worker Name Role Phone Wesley Em MD Primary Care Provider [phone] Encounter Details Date Type Department Care Team (Late st Contact Info) Description 10/21/2016 Orders Only [facility] [phone] Jose De Jesus Rushing Jr., MD [facility] [place] [address] Social History Tobacco Use Types Packs/Day Years Used Date Smoking Tobacco: Former Alcohol Use Standard Drinks/Week Comments No 0 (1 standard drink = 0.6 oz pur e alcohol) Sex and Gender Information Value Date Recorded Sex Assigned at Not on file 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 Gender Identity Not on file Sexual Orientation Straight 01/23/2021 10 :16 PM CDT documented as of this encounter Plan of Treatment Not on file documented as of this encounter Procedures Procedure Name Priority Date/Time Associated Diagnosis Comments LIPASE STAT 10/21/2016 8:05 PM CDT documented in this encounter Results * Lipase (10/21/2016 8:05 PM CDT) Lipase 29 10 - 70 Units/L [facility] ([facility]) Blood specimen (specimen) 10/21/2016 8:05 PM CDT 10/21/2016 8:09 PM CDT us Jose De Jesus Rushing Jr., MD LAB BLOOD ORDERABL ES Final Result [facility] ([place]) 1 [facility] Department [place] [address] documented in this encounter Visit Diagnoses Not on filedocumented in this encounter Care Teams Licensing Worker Relationship Specialty Start Date End Date Wesley Em MD PCP - General 09/30/16 12/01/21 documented as of this encounter
--- OUTSIDE RECORDS SUMMARY | 2024-06-18 18:16 | XMS_ITS | Encounter Summary ---
Author Organization [facility] Healthcare Address [address] [place] [address] Care Team Providers Care Classification Control Clerk Name Role Phone Wesley Em MD Primary Care Provider Encounter Details Date Type Department Care Team (Late st Contact Info) Description 10/21/2016 Orders Only [facility] [phone] Jose De Jesus Rushing Jr., MD [facility] [place] [address] Social History Tobacco Use Types Packs/Day Years Used Date Smoking Tobacco: Former Alcohol Use Standard Drinks/Week Comments No 0 (1 standard drink = 0.6 oz pur e alcohol) Sex and Gender Information Value Date Recorded Sex Assigned at Not on file 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 Gender Identity Not on file Sexual Orientation Straight 01/23/2021 10 :16 PM CDT documented as of this encounter Plan of Treatment Not on file documented as of this encounter Procedures Procedure Name Priority Date/Time Associated Diagnosis Comments CBC WITH AUTO DIFFERENTIAL STAT 10/21/2016 8:05 PM CDT documented in this encounter Results * (ABNORMAL) CBC with auto differential (10/21/2016 8:05 PM CDT) WBC 8.56 3.80 - 9.80 K/cumm [facility] ([facility]) RBC 5.72(H) 4.50 - 5.70 M/cumm [facility] ([facility]) Hgb 16.2 13.8 - 17.2 g/dL [facility] ([facility]) Hct 47.7 40.7 - 50.3 % [facility] ([place]) MCV 83.4 80.0 - 100.0 fL [facility] ([place]) MCH 28.3 26.7 - 33.7 pg [facility] ([facility]) MCHC 34.0 32.7 - 36.0 g/dL [facility] ([facility]) RDW CV 13.8 11.5 - 14.6 % [facility] ([facility]) Plt 249 140 - 440 K/cumm [facility] ([facility]) MPV 10.2 8.0 - 12.0 fL [facility] ([facility]) NRBC 0.0 0.0 - 0.0 % [facility] ([facility]) NRBC abs 0.00 0.00 - 0.00 K/cumm [facility] ([facility]) Blood specimen (specimen) 10/21/2016 8:05 PM CDT 10/21/2016 8:09 PM CDT us Jose De Jesus Rushing Jr., MD LAB BLOOD ORDERABL ES Final Result [facility] ([facility]) 1 [facility] Department [place] [address] documented in this encounter Visit Diagnoses Not on filedocumented in this encounter Care Teams Classification Control Clerk Relationship Specialty Start Date End Date Wesley Em MD PCP - General 09/30/16 12/01/21 documented as of this encounter
--- OUTSIDE RECORDS SUMMARY | 2024-06-18 18:16 | XMS_ITS | Encounter Summary ---
Author Organization [facility] Healthcare Address [address] [place] [address] Care Team Providers Care Inventory Control Assistant Name Role Phone Wesley Em MD Primary Care Provider [phone] Encounter Details Date Type Department Care Team (Late st Contact Info) Description 10/22/2016 Orders Only [facility] [phone] Jose Bucio MD [address] [place] [address] [address] [place] [address] Social History Tobacco Use Types Packs/Day Years Used Date Smoking Tobacco: Former Alcohol Use Standard Drinks/Week Comments No 0 (1 standard drink = 0.6 oz pur e alcohol) Sex and Gender Information Value Date Recorded Sex Assigned at Not on file 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 Gender Identity Not on file Sexual Orientation Straight 01/23/2021 10 :16 PM CDT documented as of this encounter Plan of Treatment Not on file documented as of this encounter Procedures Procedure Name Priority Date/Time Associated Diagnosis Comments BASIC METABOLIC PANEL Routine 10/22/2016 6:51 AM CDT documented in this encounter Results * (ABNORMAL) Basic metabolic panel (10/22/2016 6:51 AM CDT) Sodium 144 135 - 145 mmol/L [facility] ([facility]) Potassium 4.2 3.5 - 5.1 mmol/L [facility] ([facility]) Chloride 107 97 - 110 mmol/L [facility] CO2 21(L) 22 - 32 mmol/L [facility] Anion gap 16 8 - 16 mmol/L [facility] Glucose 129 70 - 199 mg/dL [facility] ([facility]) Comment: Interpretive Data Note:The glucose [...] data was last revised on 2014. BUN 47.2(H) 8.0 - 25.0 mg/dL [facility] ([facility]) Creatinine 2.58(H) 0.70 - 1.30 mg/dL [facility] ([facility]) Calcium 8.8 8.6 - 10.2 mg/dL [facility] ([facility]) BUN/creat ratio 18 10 - 20 [facility] Blood specimen (specimen) 10/22/2016 6:51 AM CDT 10/22/2016 7:31 AM CDT Jose Bucio MD LAB BLOOD ORDERABLES Final Re sult [facility] ([place] 1 [facility] Department [place] [address] documented in this encounter Visit Diagnoses Not on filedocumented in this encounter Care Teams Inventory Control Assistant Relationship Specialty Start Date End Date Wesley Em MD PCP - General 09/30/16 12/01/21 documented as of this encounter
--- OUTSIDE RECORDS SUMMARY | 2024-06-18 18:16 | XMS_ITS | Encounter Summary ---
Author Organization [facility] Medical [facility] Address [address] [facility] [address] [place] [address] Care Team Providers Care Shelter Advocate Name Role Phone Wesley Em MD Primary Care Provider [phone] Encounter Details Date Type Department Care Team (Late st Contact Info) Description 10/25/2016 Orders Only [facility] [address] 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 Gender Identity Not on file Sexual Orientation Straight 01/23/2021 10 :16 PM CDT documented as of this encounter Plan of Treatment Not on file documented as of this encounter Procedures Procedure Name Priority Date/Time Associated Diagnosis Comments BASIC METABOLIC PANEL Routine 10/25/2016 10:49 AM CDT documented in this encounter Results * (ABNORMAL) Basic metabolic panel (10/25/2016 10:49 AM CDT) Sodium 139 135 - 145 mmol/L [facility] Potassium, pl 3.7 3.5 - 5.1 mmol/L [facility] Chloride 104 100 - 114 mmol/L [facility] CO2 25 22 - 32 mmol/L [facility] BUN 34(H) 8 - 24 mg/dL [facility] Glucose 133 70 - 199 mg/dL [facility] Creatinine 1.97(H) 0.70 - 1.40 mg/dL [facility] Calcium 8.6 8.4 - 10.5 mg/dL [facility] Anion gap 14 8 - 16 mmol/L [facility] Blood specimen (specimen) 10/25/2016 10:49 AM CDT 10/25/2016 3:50 PM CDT Wesley Em MD LAB BLOOD ORDERABLES Final Res ult [facility] [address] Department [place] [address] documented in this encounter Visit Diagnoses Not on filedocumented in this encounter Care Teams Shelter Advocate Relationship Specialty Start Date End Date Wesley Em MD PCP - General 09/30/16 12/01/21 documented as of this encounter
--- OUTSIDE RECORDS SUMMARY | 2024-06-18 18:16 | XMS_ITS | Encounter Summary ---
Author Organization [facility] Healthcare Address [address] [place] [address] Care Team Providers Care Shaker Repairer Name Role Phone Wesley Em MD Primary Care Provider [phone] Encounter Details Date Type Department Care Team (Late st Contact Info) Description 10/21/2016 Orders Only [facility] [phone] Jose De Jesus Rushing Jr., MD [facility] [place] [address] Social History Tobacco Use Types Packs/Day Years Used Date Smoking Tobacco: Former Alcohol Use Standard Drinks/Week Comments No 0 (1 standard drink = 0.6 oz pur e alcohol) Sex and Gender Information Value Date Recorded Sex Assigned at Not on file 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 Gender Identity Not on file Sexual Orientation Straight 01/23/2021 10 :16 PM CDT documented as of this encounter Plan of Treatment Not on file documented as of this encounter Procedures Procedure Name Priority Date/Time Associated Diagnosis Comments LACTATE, WHOLE BLOOD STAT 10/21/2016 8:49 PM CDT documented in this encounter Results * (ABNORMAL) Lactate, whole blood (10/21/2016 8:49 PM CDT) Lactate, bld 2.4(H) 0.5 - 2.2 mmol/L [facility] ([facility]) Blood specimen (specimen) 10/21/2016 8:49 PM CDT 10/21/2016 8:56 PM CDT us Jose De Jesus Rushing Jr., MD LAB BLOOD ORDERABL ES Final Result [facility] ([place]) 1 [facility] Department [place] [address] documented in this encounter Visit Diagnoses Not on filedocumented in this encounter Care Teams Shaker Repairer Relationship Specialty Start Date End Date Wesley Em MD PCP - General 09/30/16 12/01/21 documented as of this encounter
--- OUTSIDE RECORDS SUMMARY | 2024-06-18 18:16 | XMS_ITS | Encounter Summary ---
Author Organization [facility] Healthcare Address [address] [place] [address] Care Team Providers Care Taxi Truck Driver Name Role Phone Wesley Em MD Primary Care Provider [phone] Encounter Details Date Type Department Care Team (Late st Contact Info) Description 10/25/2016 10:46 AM CDT - 10/25/2016 11:59 PM CDT Hospital Encounter [facility] OP INTERIM Wesley Em MD [address] [place] [address] Discharge Disposition: Discharge to home or self care Social History Tobacco Use Types Packs/Day Years Used Date Smoking Tobacco: Former Alcohol Use Standard Drinks/Week Comments No 0 (1 standard drink = 0.6 oz pur e alcohol) Sex and Gender Information Value Date Recorded Sex Assigned at Not on file 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
--- OUTSIDE RECORDS SUMMARY | 2024-06-18 18:16 | XMS_ITS | Encounter Summary ---
Author Organization [facility] Healthcare Address [address] [place] [address] Care Team Providers Care Cane Stripper Name Role Phone Wesley Em MD Primary Care Provider [phone] Encounter Details Date Type Department Care Team (Late st Contact Info) Description 10/22/2016 Orders Only [facility] [phone] Jose Bucio MD [address] [place] [address] # [place] [address] Social History Tobacco Use Types Packs/Day Years Used Date Smoking Tobacco: Former Alcohol Use Standard Drinks/Week Comments No 0 (1 standard drink = 0.6 oz pur e alcohol) Sex and Gender Information Value Date Recorded Sex Assigned at Not on file 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 60 - 89 mL/min/1.73m2 Mildly to moderately decreased ?45 - 59 mL/min/1.73m2 Moderately to severely decreased ??30 - 44 mL/min/1.73m2 Severely decreased ?15 - 29 mL/min/1.73m2 Kidney Failure ?< 15 ??mL/min/1.73m2 *Relative to young adult level If -Belarusian multiply value by 1.16. Estimated glomerular filtration [...] was last reviewed 2016. Blood specimen (specimen) 10/22/2016 6:51 AM CDT 10/22/2016 7:31 AM CDT us Jose Bucio MD LAB BLOOD ORDERABLES Final Re sult Performing Organization Address City/State/[facility] Co de Phone Number [facility] ([place]) 1 [facility] Department [place] [address] documented in this encounter Visit Diagnoses Not on filedocumented in this encounter Care Teams Cane Stripper Relationship Specialty Start Date End Date Wesley Em MD PCP - General 09/30/16 12/01/21 documented as of this encounter
--- OUTSIDE RECORDS SUMMARY | 2024-06-18 18:16 | XMS_ITS | Encounter Summary ---
Author Organization [facility] Group Address [address] [place] [address] Care Team Providers Care Residential Property Manager Name Role Phone Wesley Em MD Primary Care Provider [phone] Encounter Details Date Type Department Care Team (Late st Contact Info) Description 11/04/2016 Orders Only [facility] 2 [facility] [address] [place] [phone] Wesely Em MD [address] [place] [address] Social History Tobacco Use Types Packs/Day Years Used Date Smoking Tobacco: Former Alcohol Use Standard Drinks/Week Comments No 0 (1 standard drink = 0.6 oz pur e alcohol) Sex and Gender Information Value Date Recorded Sex Assigned at Not on file 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 60 - 89 mL/min/1.73m2 Mildly to moderately decreased ?45 - 59 mL/min/1.73m2 Moderately to severely decreased ??30 - 44 mL/min/1.73m2 Severely decreased ?15 - 29 mL/min/1.73m2 Kidney Failure ?< 15 ??mL/min/1.73m2 *Relative to young adult level If -Argentine multiply value by 1.16. Estimated glomerular filtration [...] was last reviewed 2016. Blood specimen (specimen) 11/04/2016 8:55 AM CDT 11/04/2016 10:10 AM CDT us Wesley Em MD LAB BLOOD ORDERABLES Final Res ult Performing Organization Address City/State/[facility] Phone Number [facility] [address] Department [place] [address] documented in this encounter Visit Diagnoses Not on filedocumented in this encounter Care Teams Residential Property Manager Relationship Specialty Start Date End Date Wesley Em MD PCP - General 09/30/16 12/01/21 documented as of this encounter
--- OUTSIDE RECORDS SUMMARY | 2024-06-18 18:16 | XMS_ITS | Encounter Summary ---
Author Organization [facility] Healthcare Address [address] [place] [address] Care Team Providers Care Chemic Mangler Name Role Phone Wesley Em MD Primary Care Provider [phone] Encounter Details Date Type Department Care Team (Late st Contact Info) Description 10/21/2016 Orders Only [facility] Inter[facility] [phone] Jose De Jesus Rushing Jr., MD [facility] [place] [address] Social History Tobacco Use Types Packs/Day Years Used Date Smoking Tobacco: Former Alcohol Use Standard Drinks/Week Comments No 0 (1 standard drink = 0.6 oz pur e alcohol) Sex and Gender Information Value Date Recorded Sex Assigned at Not on file 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 60 - 89 mL/min/1.73m2 Mildly to moderately decreased ?45 - 59 mL/min/1.73m2 Moderately to severely decreased ??30 - 44 mL/min/1.73m2 Severely decreased ?15 - 29 mL/min/1.73m2 Kidney Failure ?< 15 ??mL/min/1.73m2 *Relative to young adult level If -Grenadian multiply value by 1.16. Estimated glomerular filtration [...] was last reviewed 2016. Blood specimen (specimen) 10/21/2016 8:05 PM CDT 10/21/2016 8:09 PM CDT us Jose De Jesus Rushing Jr., MD LAB BLOOD ORDERABL ES Final Result Performing Organization Address City/State/[facility] Co de Phone Number [facility] [place] 1 [facility] Department of Laboratories [place], [place] [id number] documented in this encounter Visit Diagnoses Not on filedocumented in this encounter Care Teams Chemic Mangler Relationship Specialty Start Date End Date Wesley Em MD PCP - General 09/30/16 12/01/21 documented as of this encounter
--- OUTSIDE RECORDS SUMMARY | 2024-06-18 18:16 | XMS_ITS | Encounter Summary ---
Author Organization [facility] Healthcare Address [address] [place] [address] Care Team Providers Care Magazine Feeder Name Role Phone Wesley Em MD Primary Care Provider [phone] Encounter Details Date Type Department Care Team (Late st Contact Info) Description 10/23/2016 Orders Only [facility] [phone] Albert Craft MD [address] [place], [place] [id number] Social History Tobacco Use Types Packs/Day Years Used Date Smoking Tobacco: Former Alcohol Use Standard Drinks/Week Comments No 0 (1 standard drink = 0.6 oz pur e alcohol) Sex and Gender Information Value Date Recorded Sex Assigned at Not on file 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 60 - 89 mL/min/1.73m2 Mildly to moderately decreased ?45 - 59 mL/min/1.73m2 Moderately to severely decreased ??30 - 44 mL/min/1.73m2 Severely decreased ?15 - 29 mL/min/1.73m2 Kidney Failure ?< 15 ??mL/min/1.73m2 *Relative to young adult level If -Guatemalan multiply value by 1.16. Estimated glomerular filtration [...] was last reviewed 2016. Blood specimen (specimen) 10/23/2016 3:10 AM CDT 10/23/2016 3:57 AM CDT us Albert Craft MD LAB BLOOD ORDERABLES Final Result Performing Organization Address City/State/[facility] Phone Number [facility] [place]) 1 [facility] Department of Laboratories [place], [place] [id number] documented in this encounter Visit Diagnoses Not on filedocumented in this encounter Care Teams Magazine Feeder Relationship Specialty Start Date End Date Wesley Em MD PCP - General 09/30/16 12/01/21 documented as of this encounter
--- OUTSIDE RECORDS SUMMARY | 2024-06-18 18:16 | XMS_ITS | Encounter Summary ---
Author Organization [facility] Healthcare Address [address] [place] [address] Care Team Providers Care Pre Owned Sales Manager Name Role Phone Wesley Em MD Primary Care Provider [phone] Encounter Details Date Type Department Care Team (Late st Contact Info) Description 11/04/2016 8:53 AM CDT - 11/04/2016 11:59 PM CDT Hospital Encounter CH OP INTERIM Wesley Em MD [address] [place] [address] Discharge Disposition: Discharge to home or self care Social History Tobacco Use Types Packs/Day Years Used Date Smoking Tobacco: Former Alcohol Use Standard Drinks/Week Comments No 0 (1 standard drink = 0.6 oz pur e alcohol) Sex and Gender Information Value Date Recorded Sex Assigned at Not on file 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
--- OUTSIDE RECORDS SUMMARY | 2024-06-18 18:16 | XMS_ITS | Encounter Summary ---
Author Organization [facility] Healthcare Address [address] [place] [address] Care Team Providers Care Glass Deposition Tender Name Role Phone Wesley Em MD Primary Care Provider [phone] Encounter Details Date Type Department Care Team (Late st Contact Info) Description 10/21/2016 Orders Only [facility] [phone] Jose De Jesus Rushing Jr., MD [facility] [place] [address] Social History Tobacco Use Types Packs/Day Years Used Date Smoking Tobacco: Former Alcohol Use Standard Drinks/Week Comments No 0 (1 standard drink = 0.6 oz pur e alcohol) Sex and Gender Information Value Date Recorded Sex Assigned at Not on file 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 Gender Identity Not on file Sexual Orientation Straight 01/23/2021 10 :16 PM CDT documented as of this encounter Plan of Treatment Not on file documented as of this encounter Procedures Procedure Name Priority Date/Time Associated Diagnosis Comments URINALYSIS AND REFLEX TO MICROSCOPIC AND CULTURE STAT 10/21/2016 9:00 PM CDT documented in this encounter Results * (ABNORMAL) Urinalysis reflex to microscopic and culture (10/21/2016 9:00 PM CDT) Color, ur Yellow Yellow [facility] ([place]) Clarity, ur Clear Clear [facility] ([place]) Specific gravity, ur 1.016 1.003 - 1.030 [facility] ([place]) Comment:Normal Ranges: 1.003 -1.030 pH, ur 8.0 4.5 - 8.0 [facility] ([place]) Comment:Normal ranges: 4.5-8 .0 Protein, ur ql 30 Negative mg/dL [facility] ([place]) Glucose, ur ql Negative Negative mg/dL [facility] ([place]) Ketones, ur Trace(A) Negative [facility] ([place]) Bilirubin, ur Negative Negative [facility] ([place]) Blood, ur Large(A) Negative [facility] ([place]) Urobilinogen, ur 0.2 0.2 - 1.0 EhrUnit/dL [facility] ([place]) Comment:Normal Ranges: 0.2-1 .0 EU/dL Nitrites, ur Negative Negative [facility] ([place]) Leukocyte esterase, ur Negative Negative [facility] ([place]) Urine/Blood 10/21/2016 9:00 PM CDT 10/21/2016 9:02 PM CDT us Jose De Jesus Rushing Jr., MD LAB MICROBIOLOGY - GENERAL ORDERABLES Final Result [facility] ([place]) 1 [facility] Department [place] [address] documented in this encounter Visit Diagnoses Not on filedocumented in this encounter Care Teams Glass Deposition Tender Relationship Specialty Start Date End Date Wesley Em MD PCP - General 09/30/16 12/01/21 documented as of this encounter
--- OUTSIDE RECORDS SUMMARY | 2024-06-18 18:16 | XMS_ITS | Encounter Summary ---
Author Organization [facility] Address [address] [place] [address] Care Team Providers Care Cleaning Maid Name Role Phone Wesley Em MD Primary Care Provider Encounter Details Date Type Department Care Team (Late st Contact Info) Description 10/22/2016 Orders Only [facility] 1 [place] [phone] Kathleen Lundberg MD [address] [id number] Social History Tobacco Use Types Packs/Day Years Used Date Smoking Tobacco: Former Alcohol Use Standard Drinks/Week Comments No 0 (1 standard drink = 0.6 oz pur e alcohol) Sex and Gender Information Value Date Recorded Sex Assigned at Not on file 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 Gender Identity Not on file Sexual Orientation Straight 01/23/2021 10 :16 PM CDT documented as of this encounter Plan of Treatment Not on file documented as of this encounter Procedures Procedure Name Priority Date/Time Associated Diagnosis Comments GLUCOSE POC Routine 10/22/2016 8:49 PM CDT documented in this encounter Results * (ABNORMAL) Glucose POC (10/22/2016 8:49 PM CDT) Glucose, POC 111(H) 71 - 98 mg/dL [facility] ([place]) Blood specimen (specimen) 10/22/2016 8:49 PM CDT 10/22/2016 8:49 PM CDT Kathleen Lundberg MD POINT OF CARE TEST ORDERABLES Fi nal Result [facility] ([place]) 1 [facility] [place] [address] documented in this encounter Visit Diagnoses Not on filedocumented in this encounter Care Teams Cleaning Maid Relationship Specialty Start Date End Date Wesley mE MD PCP - General 09/30/16 12/01/21 documented as of this encounter
--- OUTSIDE RECORDS SUMMARY | 2024-06-18 18:16 | XMS_ITS | Encounter Summary ---
Author Organization [facility] Address [address] [place] [address] Care Team Providers Care Production Line Worker Name Role Phone Wesley Em MD Primary Care Provider [phone] Encounter Details Date Type Department Care Team (Late st Contact Info) Description 11/04/2016 Orders Only [place] [facility] 2 [facility] [address] [place] [phone] Wesley Em MD [address] [place] [address] Social History Tobacco Use Types Packs/Day Years Used Date Smoking Tobacco: Former Alcohol Use Standard Drinks/Week Comments No 0 (1 standard drink = 0.6 oz pur e alcohol) Sex and Gender Information Value Date Recorded Sex Assigned at Not on file 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 Gender Identity Not on file Sexual Orientation Straight 01/23/2021 10 :16 PM CDT documented as of this encounter Plan of Treatment Not on file documented as of this encounter Procedures Procedure Name Priority Date/Time Associated Diagnosis Comments CBC WITH AUTO DIFFERENTIAL Routine 11/04/2016 8:55 AM CDT documented in this encounter Results * CBC with auto differential (11/04/2016 8:55 AM CDT) WBC 7.49 3.80 - 9.90 K/cumm [facility] RBC 4.67 4.30 - 5.80 M[facility] Hgb 13.5 13.0 - 17.5 g/dL [facility] Hct 40.7 38.9 - 50.3 % [facility] MCV 87.2 81.3 - 96.4 fL [facility] MCH 28.9 27.1 - 33.3 pg [facility] MCHC 33.2 32.3 - 35.7 g/dL [facility] RDW CV 13.9 11.1 - 14.9 % [facility] RDW SD 43.7 35.7 - 48.1 fL [facility] Plt 175 150 - 400 K/cumm [facility] MPV 10.8 9.1 - 12.3 fL [facility] NRBC 0.0 0.0 - 0.2 % [facility] NRBC abs 0.00 0.00 - 0.01 K/cumm [facility] Blood specimen (specimen) 11/04/2016 8:55 AM CDT 11/04/2016 10:07 AM CDT us Wesley Em MD LAB BLOOD ORDERABLES Final Res ult [facility] [address] Department [place] [address] documented in this encounter Visit Diagnoses Not on filedocumented in this encounter Care Teams Production Line Worker Relationship Specialty Start Date End Date Wesley Em MD PCP - General 09/30/16 12/01/21 documented as of this encounter
--- OUTSIDE RECORDS SUMMARY | 2024-06-18 18:16 | XMS_ITS | Encounter Summary ---
Author Organization [facility] Healthcare Address [address] [place] [address] Care Team Providers Care Borematic Machine Operator Name Role Phone Wesley Em MD Primary Care Provider [phone] Encounter Details Date Type Department Care Team (Late st Contact Info) Description 10/21/2016 Orders Only [facility] [phone] Jose De Jesus Rushing Jr., MD [facility] [place] [address] Social History Tobacco Use Types Packs/Day Years Used Date Smoking Tobacco: Former Alcohol Use Standard Drinks/Week Comments No 0 (1 standard drink = 0.6 oz pur e alcohol) Sex and Gender Information Value Date Recorded Sex Assigned at Not on file 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 Gender Identity Not on file Sexual Orientation Straight 01/23/2021 10 :16 PM CDT documented as of this encounter Plan of Treatment Not on file documented as of this encounter Procedures Procedure Name Priority Date/Time Associated Diagnosis Comments AMYLASE STAT 10/21/2016 8:05 PM CDT documented in this encounter Results * (ABNORMAL) Amylase (10/21/2016 8:05 PM CDT) Amylase 101(H) 30 - 100 Units/L [facility] ([place]) Blood specimen (specimen) 10/21/2016 8:05 PM CDT 10/21/2016 8:09 PM CDT us Jose De Jesus Rushing Jr., MD LAB BLOOD ORDERABL ES Final Result [facility] ([place]) 1 [facility] Department [place] [address] documented in this encounter Visit Diagnoses Not on filedocumented in this encounter Care Teams Borematic Machine Operator Relationship Specialty Start Date End Date Wesley Em MD PCP - General 09/30/16 12/01/21 documented as of this encounter
--- OUTSIDE RECORDS SUMMARY | 2024-06-18 18:16 | XMS_ITS | Encounter Summary ---
Author Organization [facility] Healthcare Address [address] [place] [address] Care Team Providers Care Assistant Statistician Name Role Phone Wesley Em MD Primary Care Provider [phone] Encounter Details Date Type Department Care Team (Latest Contact Info) Description 11/03/2016 1:41 PM CDT - 11/03/2016 11:59 PM CDT Hospital Encounter [facility] OP INTERIM Discharge Disposition: Discharge to home or self care Social History Tobacco Use Types Packs/Day Years Used Date Smoking Tobacco: Former Alcohol Use Standard Drinks/Week Comments No 0 (1 standard drink = 0.6 oz pur e alcohol) Sex and Gender Information Value Date Recorded Sex Assigned at Not on file 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
--- OUTSIDE RECORDS SUMMARY | 2024-06-18 18:16 | XMS_ITS | Encounter Summary ---
Author Organization [facility] Healthcare Address [address] [place] [address] Care Team Providers Care Emergency Medcl Emt Name Role Phone Wesley Em MD Primary Care Provider [phone] Encounter Details Date Type Department Care Team (Late st Contact Info) Description 11/03/2016 10:14 AM CDT - 11/03/2016 11:59 PM CDT Hospital Encounter [facility] OP INTERIM Roger Hoskins MD [address] [place] [address] Discharge Disposition: Discharge to home or self care Social History Tobacco Use Types Packs/Day Years Used Date Smoking Tobacco: Former Alcohol Use Standard Drinks/Week Comments No 0 (1 standard drink = 0.6 oz pur e alcohol) Sex and Gender Information Value Date Recorded Sex Assigned at Not on file 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
--- OUTSIDE RECORDS SUMMARY | 2024-06-18 18:16 | XMS_ITS | Encounter Summary ---
Author Organization [facility] Healthcare Address [address] [place] [address] Care Team Providers Care Window And Siding Craftsman Name Role Phone Wesley Em MD Primary Care Provider [phone] Encounter Details Date Type Department Care Team (Late st Contact Info) Description 10/22/2016 Orders Only [facility] [phone] Milagro Fletcher MD [address] [place] [address] [address] Social History Tobacco Use Types Packs/Day Years Used Date Smoking Tobacco: Former Alcohol Use Standard Drinks/Week Comments No 0 (1 standard drink = 0.6 oz pur e alcohol) Sex and Gender Information Value Date Recorded Sex Assigned at Not on file 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 Gender Identity Not on file Sexual Orientation Straight 01/23/2021 10 :16 PM CDT documented as of this encounter Plan of Treatment Not on file documented as of this encounter Procedures Procedure Name Priority Date/Time Associated Diagnosis Comments GLUCOSE POC Routine 10/22/2016 8:03 AM CDT documented in this encounter Results * (ABNORMAL) Glucose POC (10/22/2016 8:03 AM CDT) Glucose, POC 118(H) 71 - 98 mg/dL [facility] ([facility]) Blood specimen (specimen) 10/22/2016 8:03 AM CDT 10/22/2016 8:03 AM CDT us Milagro Fletcher MD POINT OF CARE TEST ORDER KATHLEEN Final Result [facility] ([place]) 1 [facility] Department [place] [address] documented in this encounter Visit Diagnoses Not on filedocumented in this encounter Care Teams Window And Siding Craftsman Relationship Specialty Start Date End Date Wesley Em MD PCP - General 09/30/16 12/01/21 documented as of this encounter
--- OUTSIDE RECORDS SUMMARY | 2024-06-18 18:16 | XMS_ITS | Encounter Summary ---
Author Organization [facility] Healthcare Address [address] [place] [address] Care Team Providers Care Pull Through Hooker Name Role Phone Wesley Em MD Primary Care Provider Encounter Details Date Type Department Care Team (Late st Contact Info) Description 10/21/2016 Orders Only [facility] Interim [phone] Jose De Jesus Rushing Jr., MD [facility] [place] [address] Social History Tobacco Use Types Packs/Day Years Used Date Smoking Tobacco: Former Alcohol Use Standard Drinks/Week Comments No 0 (1 standard drink = 0.6 oz pur e alcohol) Sex and Gender Information Value Date Recorded Sex Assigned at Not on file 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 Gender Identity Not on file Sexual Orientation Straight 01/23/2021 10 :16 PM CDT documented as of this encounter Plan of Treatment Not on file documented as of this encounter Procedures Procedure Name Priority Date/Time Associated Diagnosis Comments COMPREHENSIVE METABOLIC PANEL STAT 10/21/2016 8:05 PM CDT documented in this encounter Results * (ABNORMAL) Comprehensive metabolic panel (10/21/2016 8:05 PM CDT) Sodium 142 135 - 145 mmol/L [facility] ([place]) Potassium 5.4(H) 3.5 - 5.1 mmol/L [facility] ([facility]) Chloride 102 97 - 110 mmol/L [facility] ([place]) CO2 23 22 - 32 mmol/L [facility] ([facility]) Anion gap 17(H) 8 - 16 mmol/L [facility] ([facility]) Glucose 161 70 - 199 mg/dL [facility] ([facility]) Comment: Interpretive Data Note:The glucose [...] data was last revised on 2014. BUN 50.4(H) 8.0 - 25.0 mg/dL [facility] ([place]) Creatinine 2.99(H) 0.70 - 1.30 mg/dL [facility] ([facility]) BUN/creat ratio 17 10 - 20 [facility] ([facility]) Calcium 9.3 8.6 - 10.2 mg/dL [facility] ([place]) Protein, sr 7.4 6.0 - 8.4 g/dL [facility] ([place]) Albumin 4.2 3.6 - 5.0 g/dL [facility] ([place]) Alk phos 130 40 - 130 Units/L [facility] ([place]) ALT 12 5 - 50 Units/L [facility] ([place]) AST 13 10 - 45 Units/L [facility] ([place]) Bilirubin, total 0.7 <=1.2 mg/dL [facility] ([facility]) Blood specimen (specimen) 10/21/2016 8:05 PM CDT 10/21/2016 8:09 PM CDT us Jose De Jesus Rushing Jr., MD LAB BLOOD ORDERABL ES Final Result [facility] ([place]) 1 [facility] Department [place] [address] documented in this encounter Visit Diagnoses Not on filedocumented in this encounter Care Teams Pull Through Hooker Relationship Specialty Start Date End Date Wesley Em MD PCP - General 09/30/16 12/01/21 documented as of this encounter
--- OUTSIDE RECORDS SUMMARY | 2024-06-18 18:16 | XMS_ITS | Encounter Summary ---
Author Organization [facility] Address [address] [place] [address] Care Team Providers Care Drugless Physician Name Role Phone Wesley Em MD Primary Care Provider [phone] Encounter Details Date Type Department Care Team (Late st Contact Info) Description 10/23/2016 Orders Only [facility] 1 [place] [phone] Kathleen Lundberg MD [address] [id number] Social History Tobacco Use Types Packs/Day Years Used Date Smoking Tobacco: Former Alcohol Use Standard Drinks/Week Comments No 0 (1 standard drink = 0.6 oz pur e alcohol) Sex and Gender Information Value Date Recorded Sex Assigned at Not on file 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 Gender Identity Not on file Sexual Orientation Straight 01/23/2021 10 :16 PM CDT documented as of this encounter Plan of Treatment Not on file documented as of this encounter Procedures Procedure Name Priority Date/Time Associated Diagnosis Comments CBC WITH AUTO DIFFERENTIAL Routine 10/23/2016 3:10 AM CDT documented in this encounter Results * (ABNORMAL) CBC with auto differential (10/23/2016 3:10 AM CDT) WBC 12.31(H) 3.80 - 9.80 K/cumm [facility] ([facility]) RBC 5.17 4.50 - 5.70 M/cumm [facility] ([facility]) Hgb 14.8 13.8 - 17.2 g/dL [facility] ([place]) Hct 43.7 40.7 - 50.3 % [facility] ([place]) MCV 84.5 80.0 - 100.0 fL [facility] ([place]) MCH 28.6 26.7 - 33.7 pg [facility] ([place]) MCHC 33.9 32.7 - 36.0 g/dL [facility] ([facility]) RDW CV 13.9 11.5 - 14.6 % [facility] ([place]) Plt 261 140 - 440 K/cumm [facility] ([place]) MPV 10.1 8.0 - 12.0 fL [facility] ([place]) NRBC 0.0 0.0 - 0.0 % [facility] ([facility]) NRBC abs 0.00 0.00 - 0.00 K/cumm [facility] ([place]) Blood specimen (specimen) 10/23/2016 3:10 AM CDT 10/23/2016 3:57 AM CDT us Kathleen Lundberg MD LAB BLOOD ORDERABLES Final Resul t [facility] ([place]) 1 [facility] [place] [address] documented in this encounter Visit Diagnoses Not on filedocumented in this encounter Care Teams Drugless Physician Relationship Specialty Start Date End Date Wesley Em MD PCP - General 09/30/16 12/01/21 documented as of this encounter
--- OUTSIDE RECORDS SUMMARY | 2024-06-18 18:16 | XMS_ITS | Encounter Summary ---
Author Organization [facility] Healthcare Address [address] [place] [address] Care Team Providers Care Manager Advertising Name Role Phone Wesley Em MD Primary Care Provider [phone] Encounter Details Date Type Department Care Team (Late st Contact Info) Description 10/21/2016 6:32 PM CDT - 10/21/2016 11:59 PM CDT Emergency [facility] Emergency Department [address] [place] [address] Discharge Disposition: Discharge to home or self care Social History Tobacco Use Types Packs/Day Years Used Date Smoking Tobacco: Former Alcohol Use Standard Drinks/Week Comments No 0 (1 standard drink = 0.6 oz pur e alcohol) Sex and Gender Information Value Date Recorded Sex Assigned at Not on file 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
--- OUTSIDE RECORDS SUMMARY | 2024-06-18 18:16 | XMS_ITS | Encounter Summary ---
Author Organization [facility] Healthcare Address [address] [place] [address] Care Team Providers Care Roller Name Role Phone Wesley Em MD Primary Care Provider Encounter Details Date Type Department Care Team (Late st Contact Info) Description 11/03/2016 Orders Only [facility] Physicians [address] [facility] [address] [place] [address] Roger Hoskins MD 4 [facility] [address] [place] [address] Social History Tobacco Use Types Packs/Day Years Used Date Smoking Tobacco: Former Alcohol Use Standard Drinks/Week Comments No 0 (1 standard drink = 0.6 oz pur e alcohol) Sex and Gender Information Value Date Recorded Sex Assigned at Not on file 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 Gender Identity Not on file Sexual Orientation Straight 01/23/2021 10 :16 PM CDT documented as of this encounter Plan of Treatment Not on file documented as of this encounter Procedures Procedure Name Priority Date/Time Associated Diagnosis Comments POCT CBC Infusion-Onc 11/03/2016 10:25 AM CDT documented in this encounter Results * (ABNORMAL) POCT CBC (11/03/2016 10:25 AM CDT) WBC, POC 7.38 3.80 - 9.80 K/cumm [facility] ([place]) RBC, POC 4.63 4.50 - 5.70 M/cumm [facility] ([facility]) Hgb, POC 13.4(L) 13.8 - 17.2 g/dL [facility] ([place]) Hct, POC 38.9(L) 40.7 - 50.3 % [facility] ([place]) MCV, POC 84.0 80.0 - 100.0 fL [facility] ([place]) MCH, POC 28.9 26.7 - 33.7 pg [facility] ([place]) MCHC, POC 34.4 32.7 - 36.0 g/dL [facility] ([place]) Platelets, POC 160 140 - 440 K/cumm [facility] ([facility]) MPV, POC 10.1 8.0 - 12.0 fL [facility] ([facility]) Neutrophil abs 5.31 1.60 - 7.00 K/cumm [facility] ([facility]) Blood specimen (specimen) 11/03/2016 10:25 AM CDT 11/03/2016 10:27 AM CDT Narrative [facility] ([facility]) - 11/03/2016 10:29 AM CDT 2 [place] us Roger Hoskins MD POINT OF CARE TEST ORDER KATHLEEN Final Result [facility] ([facility]) 1 [facility] Department [place] [address] documented in this encounter Visit Diagnoses Not on filedocumented in this encounter Care Teams Roller Relationship Specialty Start Date End Date Wesley Em MD PCP - General 09/30/16 12/01/21 documented as of this encounter
--- OUTSIDE RECORDS SUMMARY | 2024-06-18 18:16 | XMS_ITS | Encounter Summary ---
Author Organization [facility] Healthcare Address [address] [place] [address] Care Team Providers Care Clinical Veterinarian Name Role Phone Wesley Em MD Primary Care Provider [phone] Encounter Details Date Type Department Care Team (Late st Contact Info) Description 10/21/2016 Orders Only [facility] Interim [phone] Jose De Jesus Rushing Jr., MD [facility] [place] [address] Social History Tobacco Use Types Packs/Day Years Used Date Smoking Tobacco: Former Alcohol Use Standard Drinks/Week Comments No 0 (1 standard drink = 0.6 oz pur e alcohol) Sex and Gender Information Value Date Recorded Sex Assigned at Not on file 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 Gender Identity Not on file Sexual Orientation Straight 01/23/2021 10 :16 PM CDT documented as of this encounter Plan of Treatment Not on file documented as of this encounter Procedures Procedure Name Priority Date/Time Associated Diagnosis Comments DIFFERENTIAL AUTO STAT 10/21/2016 8:0 5 PM CDT documented in this encounter Results * (ABNORMAL) Differential, auto (10/21/2016 8:05 PM CDT) Neutrophil pct 88.9(H) 44.0 - 80.0 % [facility] ([facility]) Imm gran pct 0.4 0.0 - 1.0 % [facility] ([facility]) Lymphocyte pct 6.5(L) 13.0 - 44.0 % [facility] ([facility]) Monocyte pct 3.6 2.0 - 11.0 % [facility] ([facility]) Eosinophil pct 0.0 0.0 - 6.0 % [facility] ([place]) Basophil pct 0.6 0.0 - 3.0 % [facility] ([facility]) Neutrophil abs 7.61(H) 1.60 - 7.00 K/cumm [facility] ([facility]) Imm gran abs 0.03 0.00 - 0.20 K/cumm [facility] ([facility]) Lymphocyte abs 0.56 0.50 - 4.30 K/cumm [facility] ([facility]) Monocyte abs 0.31 0.10 - 1.00 K/cumm [facility] ([facility]) Eosinophil abs 0.00 0.00 - 0.60 K/cumm [facility] ([facility]) Basophil abs 0.05 0.00 - 0.30 K/cumm [facility] ([facility]) Blood specimen (specimen) 10/21/2016 8:05 PM CDT 10/21/2016 8:09 PM CDT us Jose De Jesus Rushing Jr., MD LAB BLOOD ORDERABL ES Final Result [facility] ([facility]) 1 [facility] Department [place] [address] documented in this encounter Visit Diagnoses Not on filedocumented in this encounter Care Teams Clinical Veterinarian Relationship Specialty Start Date End Date Wesley Em MD PCP - General 09/30/16 12/01/21 documented as of this encounter
--- OUTSIDE RECORDS SUMMARY | 2024-06-18 18:16 | XMS_ITS | Encounter Summary ---
Author Organization [facility] Healthcare Address [address] [place] [address] Care Team Providers Care System Programmer Name Role Phone Wesley Em MD Primary Care Provider [phone] Encounter Details Date Type Department Care Team (Late st Contact Info) Description 10/21/2016 Orders Only [facility] Interim [phone] Jose Bucio MD [address] [place] [address] # [place] [address] Social History Tobacco Use Types Packs/Day Years Used Date Smoking Tobacco: Former Alcohol Use Standard Drinks/Week Comments No 0 (1 standard drink = 0.6 oz pur e alcohol) Sex and Gender Information Value Date Recorded Sex Assigned at Not on file 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 Gender Identity Not on file Sexual Orientation Straight 01/23/2021 10 :16 PM CDT documented as of this encounter Plan of Treatment Not on file documented as of this encounter Procedures Procedure Name Priority Date/Time Associated Diagnosis Comments LACTATE, WHOLE BLOOD STAT 10/21/2016 10:10 PM CDT documented in this encounter Results * (ABNORMAL) Lactate, whole blood (10/21/2016 10:10 PM CDT) Lactate, bld 2.4(H) 0.5 - 2.2 mmol/L [facility] ([facility]) Blood specimen (specimen) 10/21/2016 10:10 PM CDT 10/21/2016 10:17 PM CDT us Jose Bucio MD LAB BLOOD ORDERABLES Final Re sult [facility] ([place]) 1 [facility] Department [place] [address] documented in this encounter Visit Diagnoses Not on filedocumented in this encounter Care Teams System Programmer Relationship Specialty Start Date End Date Wesley Em MD PCP - General 09/30/16 12/01/21 documented as of this encounter
--- OUTSIDE RECORDS SUMMARY | 2024-06-18 18:16 | XMS_ITS | Encounter Summary ---
Author Organization [facility] Address [address] [place] [address] Care Team Providers Care Services Rep Name Role Phone Wesley Em MD Primary Care Provider [phone] Encounter Details Date Type Department Care Team (Late st Contact Info) Description 11/04/2016 Orders Only [facility] 2 [facility] [address] [place] [id number] Wesley Em MD [address] [place] [address] Social History Tobacco Use Types Packs/Day Years Used Date Smoking Tobacco: Former Alcohol Use Standard Drinks/Week Comments No 0 (1 standard drink = 0.6 oz pur e alcohol) Sex and Gender Information Value Date Recorded Sex Assigned at Not on file 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 Gender Identity Not on file Sexual Orientation Straight 01/23/2021 10 :16 PM CDT documented as of this encounter Plan of Treatment Not on file documented as of this encounter Procedures Procedure Name Priority Date/Time Associated Diagnosis Comments BASIC METABOLIC PANEL Routine 11/04/2016 8:55 AM CDT documented in this encounter Results * (ABNORMAL) Basic metabolic panel (11/04/2016 8:55 AM CDT) Sodium 139 135 - 145 mmol/L [facility] Potassium, pl 4.3 3.5 - 5.1 mmol/L [facility] Chloride 103 100 - 114 mmol/L [facility] CO2 28 22 - 32 mmol/L [facility] BUN 19 8 - 24 mg/dL [facility] Glucose 130 70 - 199 mg/dL [facility] Creatinine 1.60(H) 0.70 - 1.40 mg/dL [facility] Calcium 9.0 8.4 - 10.5 mg/dL [facility] Anion gap 12 8 - 16 mmol/L [facility] Blood specimen (specimen) 11/04/2016 8:55 AM CDT 11/04/2016 10:07 AM CDT us Wesley Em MD LAB BLOOD ORDERABLES Final Res ult [facility] [address] [address] Department [place] [address] documented in this encounter Visit Diagnoses Not on filedocumented in this encounter Care Teams Services Rep Relationship Specialty Start Date End Date Wesley Em MD PCP - General 09/30/16 12/01/21 documented as of this encounter
--- OUTSIDE RECORDS SUMMARY | 2024-06-18 18:16 | XMS_ITS | Encounter Summary ---
Author Organization [facility] Healthcare Address [address] [place] [address] Care Team Providers Care Front Desk Admin Name Role Phone Welsey Em MD Primary Care Provider [phone] Encounter Details Date Type Department Care Team (Late st Contact Info) Description 10/15/2016 2:48 PM CDT - 10/15/2016 4:17 PM CDT Emergency [facility] Emergency Department [address] [id number] Moraima Marcum MD [address] [place] [id number] Discharge Disposition: Discharge to home or self care Social History Tobacco Use Types Packs/Day Years Used Date Smoking Tobacco: Former Alcohol Use Standard Drinks/Week Comments No 0 (1 standard drink = 0.6 oz pur e alcohol) Sex and Gender Information Value Date Recorded Sex Assigned at Not on file 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[id number] DATE OF EXAM: ??Oct 15 2016 CLINICAL HISTORY: Head trauma status post fall. ??Head pain. RESULT: Serial axial images of the brain were obtained without contrast and correlated to the MRI of 12/17/14. There is no acute intracranial hemorrhage, midline shift or mass effect. There is mild cortical atrophy. ??There is a moderate size area of encephalomalacia in the left frontal lobe also seen on the previous brain MRI. ??Mild small vessel microvascular ischemic changes are identified bilaterally. ??There is calcification within the internal carotid arteries, vertebral arteries and basilar artery. 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 The visualized paranasal sinuses and mastoids are clear. ??There is no skull fracture. IMPRESSION: 1. NO ACUTE INTRACRANIAL ABNORMALITIES. 2. 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 3. NO SKULL FRACTURE. COMMENT: ??Results discussed with Mishel Escobar 10/15/16 at 1558 hours. Interpreting Physician: ??XAVIER TORRES M.D. ??Read on: ??Oct 15 2016 ??4:02P Transcribed by: ??beena ??On: Oct 16 2016 ??9:16A Approved Electronically by: ??XAVIER TORRES M.D. ??on: ??Oct 16 2016 ??6:49P Attending: ??MORAIMA MARCUM Requesting: ??MISHEL ESCOBAR Requesting Fax: ??-- Attending Fax: ??[phone] Attending ID: ??[id number] Requesting ID: ??[id number] Report To 1 ID: ??[id number] Report To 1 Name: ??MORAIMA MARCUM Report To 1 FAX: ??[phone] NextGen Order #: ?? Procedure Note Miscellaneous, Notinfile / Provider, MD Wilian - 11/25/[place] [id number] Acc#: [id number] DATE OF EXAM: Oct 15 2016 CLINICAL HISTORY: Head trauma status post fall. Head pain. RESULT: Serial axial images of the brain were obtained without contrast andcorrelated to the MRI of 12/17/14. There is no acute intracranialhemorrhage, midline shift or mass effect. There is mild cortical atrophy.There is a moderate size area of encephalomalacia in the left frontal lobealso seen on the previous brain MRI. Mild small vessel microvascularischemic changes are identified bilaterally. There is calcificationwithin the internal carotid arteries, vertebral arteries and basilarartery. There is an old infarct in the peripheral aspect of the thalamuson the right. The visualized paranasal sinuses and mastoids are clear.There is no skull fracture. IMPRESSION: 1. NO ACUTE INTRACRANIAL ABNORMALITIES. 2. 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 3. NO SKULL FRACTURE. COMMENT: Results discussed with Mishel Escobar 10/15/16 at 1558 hours. Interpreting Physician: XAVIER TORRES M.D. Read on: Oct 15 2016 4:02P Transcribed by: beena On: Oct 16 2016 9:16A Approved Electronically by: XAVIER TORRES M.D. on: Oct 16 2016 6:49P Attending: MORAIMA MARCUM Requesting: MISHEL ESCOBAR Requesting Fax: -- Attending Attending ID: [id number] Requesting ID: [id number] Report To 1 ID: [id number] Report To 1 Name: MORAIMA MARCUM Report To 1 FAX: [phone] NextGen Order #: [id number] Not In File Miscellaneous IMG CT PROCEDURES Iwona l Result * Xr Pelvis 1 or 2 Views (10/15/2016 8:37 PM CDT) Anatomical Region Laterality Modality Body, Pelvis N/A Radiographic Jennifer ging 10/15/2016 8:37 PM CDT Narrative 10/15/2016 8:37 PM CDT XR Pelvis 1-2 Views ?? [id number] ??Acc#: ??[id number] DATE OF EXAM: ??Oct 15 2016 CLINICAL HISTORY: Fell. ??Right sided pelvic pain. RESULT: An AP radiograph of the pelvis demonstrates no acute pelvic fracture or hip dislocation. ??Osteoarthritic changes are noted in the partially visualized lower lumbar spine. ??There is mild narrowing of the hip joint spaces bilaterally. IMPRESSION: NO ACUTE PELVIC FRACTURE OR HIP DISLOCATION. Interpreting Physician: ??XAVIER TORRES M.D. ??Read on: ??Oct 16 2016 12:30P Transcribed by: ??beena ??On: Oct 16 2016 12:30P Approved Electronically by: ??XAVIER TORRES M.D. ??on: ??Oct 16 2016 ??8:14P Attending: ??MORAIMA MARCUM Requesting: ??MISHEL ESCOBAR Requesting Fax: ??-- Attending Fax: ??[phone] Attending ID: ??[id number] Requesting ID: ??[id number] Report To 1 ID: ??[id number] Report To 1 Name: ??MORAIMA MARCUM Report To 1 FAX: ??[phone] NextGen Order #: ?? Procedure Note Miscellaneous, Notinfile - 11/25/2016 XR Pelvis 1-2 Views [id number] Acc#: [id number] DATE OF EXAM: Oct 15 2016 CLINICAL HISTORY: Fell. Right sided pelvic pain. RESULT: An AP radiograph of the pelvis demonstrates no acute pelvic fracture orhip dislocation. Osteoarthritic changes are noted in the partiallyvisualized lower lumbar spine. There is mild narrowing of the hip jointspaces bilaterally. IMPRESSION: NO ACUTE PELVIC FRACTURE OR HIP DISLOCATION. Interpreting Physician: XAVIER TORRES M.D. Read on: Oct 16 2016 12:30P Transcribed by: beena On: Oct 16 2016 12:30P Approved Electronically by: XAVIER TORRES M.D. on: Oct 16 2016 8:14P Attending: MORAIMA MARCUM Requesting: MISHEL ESCOBAR Requesting Fax: -- Attending Attending ID: [id number] Requesting ID: [id number] Report To 1 ID: [id number] Report To 1 Name: MORAIMA MARCUM Report To 1 FAX: [phone] NextGen Order #: us Not In File Miscellaneous IMG XR PROCEDURES Iwona l Result * XR Hand 2 VW (10/15/2016 8:37 PM CDT) Anatomical Region Laterality Modality N/A Radiographic Jennifer ging 10/15/2016 8:37 PM CDT Narrative 10/15/2016 8:37 PM CDT XR Hand R ?[id number] ??Acc#: ??[id number] DATE OF EXAM: ??Oct 15 2016 CLINICAL HISTORY: Diffuse right hand pain post fall. RESULT: Three views of the right hand demonstrates no acute fracture or dislocation. ??There is multisite osteoarthritic changes ??involving the 1st carpometacarpal joint, 1st metacarpophalangeal joint, 3rd metacarpophalangeal joint, the articulation between the scaphoid, trapezium and trapezoid bones, and also involving multiple interphalangeal joints. IMPRESSION: 1. NO ACUTE RIGHT HAND FRACTURE OR DISLOCATION. 2. 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 Interpreting Physician: ??XAVIER TORRES M.D. ??Read on: ??Oct 15 2016 ??6:35P Transcribed by: ??vaalisson ??On: Oct 16 2016 12:36P Approved Electronically by: ??XAVIER TORRES M.D. ??on: ??Oct 16 2016 ??8:14P Attending: ??MORAIMA MARCUM Requesting: ??MISHEL ESCOBAR Requesting Fax: ??-- Attending Fax: ??[phone] Attending ID: ??[id number] Requesting ID: ??[id number] Report To 1 ID: ??[id number] Report To 1 Name: ??MORAIMA MARCUM Report To 1 FAX: ??[phone] NextGen Order #: ?? Procedure Note Miscellaneous, Notinfile / Provider, MD Wilian - 11/25/2016 XR Hand R [id number] Acc#: [id number] DATE OF EXAM: Oct 15 2016 CLINICAL HISTORY: Diffuse right hand pain post fall. RESULT: Three views of the right hand demonstrates no acute fracture ordislocation. There is multisite osteoarthritic changes involving the 1stcarpometacarpal joint, 1st metacarpophalangeal joint, 3rdmetacarpophalangeal joint, the articulation between the scaphoid,trapezium and trapezoid bones, and also involving multiple interphalangealjoints. IMPRESSION: 1. NO ACUTE RIGHT HAND FRACTURE OR DISLOCATION. 2. 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 Interpreting Physician: XAVIER TORRES M.D. Read on: Oct 15 2016 6:35P Transcribed by: beena On: Oct 16 2016 12:36P Approved Electronically by: XAVIER TORRES M.D. on: Oct 16 2016 8:14P Attending: MORAIMA MARCUM Requesting: MISHEL ESCOBAR Requesting Fax: -- Attending Attending ID: [id number] Requesting ID: [id number] Report To 1 ID: [id number] Report To 1 Name: MORAIMA MARCUM Report To 1 FAX: [phone] NextGen Order #: [id number] Not In File Miscellaneous IMG XR PROCEDURES Iwona l Result * XR Ribs And Pa Chest 3V (10/15/2016 8:37 PM CDT) Anatomical Region Laterality Modality Chest, Rib N/A Radiographic Jennifer ging 10/15/2016 8:37 PM CDT Narrative 10/15/2016 8:37 PM CDT XR Ribs UNI W PA Chest R ??[id number] ??Acc#: ??[id number] DATE OF EXAM: ??Oct 15 2016 CLINICAL HISTORY: Right rib pain status post fall. RESULT: AP and oblique views of the right ribs demonstrate no acute displaced right rib fracture. ??There is moderate osteoarthritic changes of the acromioclavicular joint and milder osteoarthritic changes of the glenohumeral joint on the right. The accompanying PA chest xray correlated to the chest CT from 03/22/16 demonstrates a normal size heart with atherosclerotic calcification in the aorta. ??Lungs are clear with no pneumothorax. IMPRESSION: 1. NO ACUTE DISPLACED RIGHT RIB FRACTURE. 2. PA CHEST: NO ACTIVE DISEASE. 2. PA CHEST: NO ACTIVE DISEASE. Interpreting Physician: ??XAVIER TORRES M.D. ??Read on: ??Oct 15 2016 ??6:38P Transcribed by: ??beena ??On: Apr 16 2017 12:33P Approved Electronically by: ??XAVIER TORRES M.D. ??on: ??Oct 16 2016 ??8:14P Attending: ??MORAIMA MARCUM Requesting: ??MISHEL ESCOBAR Requesting Fax: ??-- Attending Fax: ??[phone] Attending ID: ??[id number] Requesting ID: ??[id number] Report To 1 ID: ??[id number] Report To 1 Name: ??MORAIMA MARCUM Report To 1 FAX: ??[phone] NextGen Order #: ?? Procedure Note Miscellaneous, Notinfile / Provider, MD Wilian - 11/25/2016 XR Ribs UNI W PA Chest R [id number] Acc#: [id number] DATE OF EXAM: Oct 15 2016 CLINICAL HISTORY: Right rib pain status post fall. RESULT: AP and oblique views of the right ribs demonstrate no acute displacedright rib fracture. There is moderate osteoarthritic changes of theacromioclavicular joint and milder osteoarthritic changes of theglenohumeral joint on the right. The accompanying PA chest xray correlatedto the chest CT from 03/22/16 demonstrates a normal size heart withatherosclerotic calcification in the aorta. Lungs are clear with nopneumothorax. IMPRESSION: 1. NO ACUTE DISPLACED RIGHT RIB FRACTURE. 2. PA CHEST: NO ACTIVE DISEASE. 2. PA CHEST: NO ACTIVE DISEASE. Interpreting Physician: XAVIER TORRES M.D. Read on: Oct 15 2016 6:38P Transcribed by: beena On: Oct 16 2016 12:33P Approved Electronically by: XAVIER TORRES M.D. on: Oct 16 2016 8:14P Attending: MORAIMA MARCUM Requesting: MISHEL ESCOBAR Requesting Fax: -- Attending Attending ID: [id number] Requesting ID: [id number] Report To 1 ID: [id number] Report To 1 Name: MORAIMA MARCUM Report To 1 FAX: [phone] NextGen Order #: us Not In File Miscellaneous IMG XR PROCEDURES Iwona l Result * XR Hip 2+ VW (10/15/2016 8:37 PM CDT) Anatomical Region Laterality Modality N/A Radiographic Jennifer ging 10/15/2016 8:37 PM CDT Narrative 10/15/2016 8:37 PM CDT XR Hip Min 2 TO 3 VIEWS R ??Acc#: ??[id number] DATE OF EXAM: ??Oct 15 2016 CLINICAL HISTORY: Right hip pain post fall. RESULT: Two views of the right hip demonstrates no acute right hip fracture or dislocation. ??There is mild narrowing of the right hip joint space. IMPRESSION: NO ACUTE RIGHT HIP FRACTURE OR DISLOCATION. Interpreting Physician: ??XAVIER TORRES M.D. ??Read on: ??Oct 16 2016 12:31P Transcribed by: ??beena ??On: Oct 16 2016 12:31P Approved Electronically by: ??XAVIER TRORES M.D. ??on: ??Oct 16 2016 ??8:14P Attending: ??MORAIMA MARCUM Requesting: ??MISHEL ESCOBAR Requesting Fax: ??-- Attending Fax: ??[phone] Attending ID: ??[id number] Requesting ID: ??[id number] Report To 1 ID: ??[id number] Report To 1 Name: ??MORAIMA MARCUM Report To 1 FAX: ??[phone] NextGen Order #: ?? Procedure Note Miscellaneous, Notinfile / Provider, MD Wilian - 11/25/2016 XR Hip Min 2 TO 3 VIEWS R Acc#: [id number] DATE OF EXAM: Oct 15 2016 CLINICAL HISTORY: Right hip pain post fall. RESULT: Two views of the right hip demonstrates no acute right hip fracture ordislocation. There is mild narrowing of the right hip joint space. IMPRESSION: NO ACUTE RIGHT HIP FRACTURE OR DISLOCATION. Interpreting Physician: XAVIER TORRES M.D. Read on: Oct 16 2016 12:31P Transcribed by: beena On: Oct 16 2016 12:31P Approved Electronically by: XAVIER TORRES M.D. on: Oct 16 2016 8:14P Attending: MORAIMA MARCUM Requesting: MISHEL ESCOBAR Requesting Fax: -- Attending Attending ID: [id number] Requesting ID: [id number] Report To 1 ID: [id number] Report To 1 Name: MORAIMA MARCUM Report To 1 FAX: [phone] NextGen Order #: us Not In File Miscellaneous IMG XR PROCEDURES Iwona l Result documented in this encounter Visit Diagnoses Not on filedocumented in this encounter Care Teams Front Desk Admin Relationship Specialty Start Date End Date Wesley Em MD PCP - General 09/30/16 12/01/21 documented as of this encounter
--- OUTSIDE RECORDS SUMMARY | 2024-06-18 18:16 | XMS_ITS | Encounter Summary ---
Author Organization [facility] Address [address] [place] [address] Care Team Providers Care Mammography Supervisor Name Role Phone Wesley Em MD Primary Care Provider [phone] Encounter Details Date Type Department Care Team (Late st Contact Info) Description 10/22/2016 Orders Only [facility] [address] [place] [id number] Kathleen Lundberg MD [address] [id number] Social History Tobacco Use Types Packs/Day Years Used Date Smoking Tobacco: Former Alcohol Use Standard Drinks/Week Comments No 0 (1 standard drink = 0.6 oz pur e alcohol) Sex and Gender Information Value Date Recorded Sex Assigned at Not on file 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 Gender Identity Not on file Sexual Orientation Straight 01/23/2021 10 :16 PM CDT documented as of this encounter Plan of Treatment Not on file documented as of this encounter Procedures Procedure Name Priority Date/Time Associated Diagnosis Comments GLUCOSE POC Routine 10/22/2016 12:09 PM CDT documented in this encounter Results * (ABNORMAL) Glucose POC (10/22/2016 12:09 PM CDT) Glucose, POC 127(H) 71 - 98 mg/dL [facility] Blood specimen (specimen) 10/22/2016 12:09 PM CDT 10/22/2016 12:09 PM CDT Kathleen Lundberg MD POINT OF CARE TEST ORDERABLES Fi nal Result [facility] ([place]) 1 [facility] Department [place] [address] documented in this encounter Visit Diagnoses Not on filedocumented in this encounter Care Teams Mammography Supervisor Relationship Specialty Start Date End Date Wesley Em MD PCP - General 09/30/16 12/01/21 documented as of this encounter
--- OUTSIDE RECORDS SUMMARY | 2024-06-18 18:16 | XMS_ITS | Encounter Summary ---
Author Organization [facility] Healthcare Address [address] [place] [address] Care Team Providers Care Hypoid Gear Tester Name Role Phone Wesley Em MD Primary Care Provider [phone] Encounter Details Date Type Department Care Team (Latest Contact Info) Description 10/21/2016 10:11 PM CDT - 10/23/2016 11:46 AM CDT Hospital Encounter [facility] [address] [place] [address] Milagro Fletcher MD [address] [facility] [address] [place] [id number] Maritza Lundberg MD [address] 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 Gender Identity Not on file Sexual Orientation Straight 01/23/2021 10 :16 PM CDT documented as of this encounter Last Filed Vital Signs Vital Sign Reading Time Taken Comments Blood Pressure 104/65 10/23/2016 11:17 AM CDT Pulse 63 10/23/2016 11:17 AM CDT Temperature - - Respiratory Rate - - Oxygen Saturation - - Inhaled Oxygen Concentration - - Weight 78.3 kg (172 lb 9.9 oz) 10/21/2016 10:35 PM CDT Height 172.7 cm (5' 7.99 ) 10/21/2016 10:35 PM C DT Body Mass Index 26.25 10/21/2016 10:35 PM CDT documented in this encounter Discharge Summaries * Miscellaneous, Not In File - 10/23/2016 5:00 AM CDT [facility]: VERNA ZUNIGAMRN: [id number]: [id number] Room No: [id number]: 1945 Patient Type: IPAttend.: Maritza Lundberg M.D. Admit Date: 10/21/2016Dict.: Maritza Lundberg M.D. Disch. Date: 10/23/2016PCPDr. Wesley Mendoza DIAGNOSIS1. Intractable nausea and vomiting, etiology unclear.2. Hypertensive urgency.3. Coronary artery disease, status post stent.4. Hyperkalemia.5. Acute kidney injury.6. Mayo esophagus.REASON FOR ADMISSIONPatient is a 71-year-old male with past medical history of Mayo esophagus,hypertension, diabetes mellitus type 2, dyslipidemia who presented to the ERwith intractable nausea and vomiting. For complete details, please refer tohistory and physical dictated by the author on 10/22/2016.HOSPITAL COURSE1. Intractable nausea and vomiting. Etiology was unclear. His liverenzymes and lipase were normal. This could be related to his Barrettesophagus versus gastroparesis, versus acute viral illness. Patient was kepton a clear liquid diet and IV fluid was started. CT scan of the abdomen andpelvis was done which did not show any acute findings (official dictation waspending at the time of this dictation). Dr. Craft, Gastroenterology wasconsulted who did not think he would need any further GI workup thisadmission. Patient was doing well and was tolerating a GI soft diet wellbefore discharge. Patient was started on IV Reglan which will be changed top.o. Reglan for 1 more week. Right before discharge, the patient added thathis is also having similar symptoms, so this could be viral related aswell. He was also found to have acute kidney injury with hyperkalemia, sonot known if this was related to his acute kidney injury or if this led tohis acute kidney injury.2. Hypertensive urgency. His blood pressure was high and he was started onhis home medications of Lopressor 25 mg twice a day and clonidine 0.2 mgtwice a day. His spironolactone and quinapril wereheld given hishyperkalemia and acute kidney injury. Will continue to hold this.3. Coronary artery disease, status post stent. He will be continued on: a. Aspirin. b. Plavix. c. Statin. d. Lopressor. e. His quinapril and spironolactone will be continued to be on hold dueto his acute kidney injury and hyperkalemia.4. Hyperkalemia, his potassium ascites. Quinapril and spironolactone wereheld.5. Acute kidney injury. This is likely prerenal from his poor oral intakeand vomiting along with his CANDELARIA inhibitor and ARB use. He was started on IVfluids. His creatinine has improved to 2.0. Will continue to hold hisspironolactone and quinapril, and will repeat a BMP in 3 days.6. Social issues. Patient had his 50th anniversary constitution party today, so thefamily wanted to see if he could be discharged or leave for a few hours.Since the patient is tolerating diet well and all his workup has beennegative so far, we will discharge the patient home but he has beeninstructed extensively to push p.o. fluid and to take a GI soft diet, and toreturn to the ER if he has any recurrent nausea, vomiting, abdominal pain.PROCEDURES/OPERATION1. CT scan of the abdomen and pelvis.2. Chest x- ray.PHILLIPDrFela Craft Concrete Block Maker.DISCHARGE PLAN/CONDITION ON DISCHARGEVital Signs: Temperature 98.5, heart rate 75, respirations 20, SpO2 of 92%on room air. Blood pressure 118/70.General Appearance: Patient is alert and oriented x3. No acute distress.CVS: RRR.Respiration: Clear to auscultation bilaterally.Abdomen: Soft, nontender, nondistended. Bowel sounds normoactive.Extremities: No edema. No calf tenderness.Neuro: No focal deficits.Psychiatric: Normal mood and affect.DISCHARGE DESTINATIONHome.DISCHARGE MEDICATIONSPlease refer to discharge medication list reconciliation for completedetails.1. Zofran ODT 4 mg every 6 hours p.r.n. for nausea.2. Reglan 5 mg 3 times a day before meals for 1 week only.FOLLOWUP APPOINTMENTS1. Follow up with PCP in 1 week.2. Follow up with Dr. Craft in 4 weeks.PENDING LABS1. None.2. BMP in 3 days.DISCHARGE INSTRUCTIONS1. Diet: GI soft, low-salt diet.2. Activity: Patient is independent.3. Monitor for fever, chills, nausea, or vomiting, and to return tot ER if these reoccur.TOTAL TIME SPENT40 minutes.Electronically Authenticated and Edited by:Maritza Lundberg MD On 10/24/2016 04:58 PM CDT Maritza Lundberg M.D.PG/ams VL: 10/23/2016 10:52TD: 10/23/2016 12:56CC:Wesley Em M.D. documented in this encounter Medications at Time [...] documented in this encounter H&P Notes * Miscellaneous, Not In File - 10/21/2016 5:00 AM CDT HISTORY AND PHYSICALPatient: VERNA ZUNIGAMRN: [id number]: [id number] Room No: [id number]: 1945 Patient Type: IPAttend.: Maritza Lundberg M.D. Admit Date: 10/21/2016Dict.: Maritza Lundberg M.D. Disch. Date: 10/23/2016PCPDr. Wesley Lobato COMPLAINTNausea and vomiting.HPIPatient is a 71-year-old male with past medical history significant forBarrett's esophagus, hypertension, diabetes mellitus type 2, dyslipidemia,who presented to the ER with intractable nausea and vomiting. Patient had arecent renal stent removal and right ureteroscopy with lithotripsy by around 1 month ago. Presented to the ER with nausea and vomiting.Patient has been seeing Dr. Craft and has had an EGD in July of thisyear which showed Mayo's esophagus. Patient was asked to take theZantacduring that time. Patient states that he was doing well up until 3 days agowhen he started having intractable nausea and vomiting. He was not able tokeep anything down, even water. He denies any fever or chills. Denies anyabdominal pain. His last bowel movement was yesterday morning. He finallypresented to the ER yesterday for further evaluation and management.In the ER, patient was evaluated and was admitted for further management ofhis intractable nausea and vomiting.PAST MEDICAL HISTORY1. Mayo's esophagus (his biopsy from EGD on 07/27/2016 showed Mayo'sesophagus with negative dysplasia).2. History of nausea or vomiting (attributed to delayed gastric emptying dueto his diabetes and mild gastroesophagitis).3. Hypertension.4. Dyslipidemia.5. Coronary artery disease, status post stents.6. Bilateral renal calculus status post stent (patient is following up withDr. Darryl Bucio, urologist).PAST SURGICAL HISTORY1. Bilateral ureteral stent placement and exchange.2. Knee replacement.3. Cardiac stents.MEDICATIONPlease refer to admission [facility] for complete details.ALLERGIESCIPROFLOXACIN (RASH), apple.SOCIAL HISTORYPatient quit smoking about 7 years ago. Denies any drug or alcohol use. Helives at home with his .FAMILY HISTORYReviewed and noncontributory to his current symptoms.REVIEW OF SYSTEMSDenies any headache or double vision or blurred vision. No lightheadednessor dizziness. No vertigo. No sore throat. No chest pain, shortness ofbreath or palpitation. Positive for nausea and vomiting. No abdominal painor diarrhea or constipation. His last bowel movement was yesterday morning.No dysuria, urgency, frequency. No hemiplegia or hemiparesis. Nopsychiatric illness. No seizure disorder. No weight loss.PHYSICAL EXAMINATIONVital Signs: Temperature 98.3. Heart rate 113, currently 80. Ghuhhhyiwgx22, SpO2 of 98% on room air. Blood pressure 173/103.General Appearance: Patient is alert and oriented x3. No acute distress.HEENT: Atraumatic, normocephalic.Pupils are equal, round. Extraocularmovements intact. Moist mucous membranes.CVS: RRR.Respiration: Clear to auscultation bilaterally.Abdomen: Soft, nontender, nondistended. Bowel sounds normoactive.Extremities: No edema. No calf tenderness.Neuro: No focal deficits.Psychiatric: Normal mood and affect.LAB DATASodium 144, potassium 4.2, chloride 107, bicarb 21, anion gap 16, aybrenc692, BUN 47.2, creatinine 2.58, lactate 2.4. AST, ALT, alkaline phosphataseand bilirubin normal. Lipase 29.WBC 8.56, hemoglobin 16.2, platelet 249.GFR 24. Amylase 101. Chest x-ray shows minimal atelectasis in the left lungbase. UA positive for ketones and blood.ASSESSMENT AND PLANPatient is a 71-year-old male with past medical history of coronary arterydisease, hypertension, renal calculi who has been admitted with:1. Intractable nausea and vomiting, etiology unclear at this time. Hisliver enzymes are normal. Lipase is normal. Amylase is only mildlyelevated. This may be related to his Mayo's esophagus. Will keep him onclear liquid diet, IV fluid, and also get a CT scan of his abdomen andpelvis. He does not appear to have any small-bowel obstruction. Hisgastroenterologist, Dr. Craft, will be consulted and will follow hisrecommendations. His hemoglobin A1c was well controlled based on his recentlabs. He may have a component of diabetic gastroparesis as well. Willcontinue with symptomatic treatment at this time.2. Hypertensive urgency. His blood pressure is slightly high. Will resumehis home medication with Lopressor 25 mg twice a day and clonidine 0.2 mgtwice a day. Will hold his spironolactone, quinapril given his hyperkalemiaand acute kidney injury. Will give him p.r.n. hydralazine.3. Coronary artery disease status post stent. Will hold his aspirin andPlavix to make sure that he does not have any ulcers or severe gastritis.Will continue his statin. Will continue his Lopressor and hold his quinapriland spironolactone given his acute kidney injury and hyperkalemia.4. Hyperkalemia. Will hold potassium citrate, quinapril, andspironolactone.5. Acute kidney injury. This is likely prerenal from his poor oral intakeand vomiting along with his CANDELARIA inhibitor and ARB use. Will continue on IVfluid and hold his spironolactone and quinapril. Will repeat BMP in themorning.6. Other chronic conditions stable.7. DVT prophylaxis Lovenox and GI prophylaxis Protonix.8. Expected length of stay to exceed 2 midnights since admission. The aboveplan was discussed with the patient'sson at the bedside.Electronically Authenticated and Edited by:Maritza Lundberg MD On 10/23/2016 01:53 PM CDT Maritza Lundberg M.D.PG/rusty BQ: 10/22/2016 13:55TD: 10/22/2016 14:45CC:Wesley Em M.D. documented in this encounter Consult Notes * Miscellaneous, Not In File - 10/22/2016 5:00 AM CDT CONSULTATION REPORTPatient: VERNA ZUNIGAMRN: [id number] Service Date: 10/22/2016Account: [id number] Room No: [id number]: 1945 Patient Type: IPAttend.: Maritza Lundberg M.D. Admit Date: 10/21/2016Consult: Albert Craft M.D. Disch. Date: 10/23/2016CONSULTING PHYSICIANJF Brown FOR CONSULTATIONNausea and vomiting.The patient is a pleasant 71-year-old white male admitted yesterday throughthe emergency room with complaints of nausea, vomiting.The patient indicates he has not been feeling well for almost 6 months. Hewas having intermittent episodes of nausea and vomiting. He recently wastreated for kidney and ureteral stones. He still has stones in his urinarybladder. The patient also recently developed upper respiratory symptoms withcoughing and sputum secretions. He was getting 2 courses of antibiotics andhe was still on his second course of Augmentin when he started to have thenausea and vomiting. Every time he eats he gets regurgitation so he came [facility] emergency room where he was admitted. He had CT of the headthat wasnegative. He had a portable chest x-ray which apparently was unremarkable.Also it looks like he was in the emergency room a few days earlier for aftera fall and he had x-rays of the ribs which showed no fracture. He has noassociated pain. Patient was taking pain medication and that caused him antonio constipated so apparently it was discontinued.PAST MEDICAL HISTORY1. Hypertension.2. Diabetes.3. Hyperlipidemia.4. Kidney stones as noted above and he has stent placement recently.5. Colonoscopy in 2006 showed diverticulosis, small hemorrhoids, diminutivepolyps removed.6. Upper endoscopy in July 2016 showed gastritis with reflux esophagitisand biopsy showing Mayo's esophagus.7. Coronary artery disease and history of stents in place.8. History of polycythemia vera.SOCIAL AND FAMILY HISTORYPatient lives with his in [place]. Patient used to smoke in thepast but he quit. No family history of colon cancer but there is familyhistory of ulcerative colitis in both of his sons.REVIEW OF SYSTEMSPatient continues to have coughing with sputum and also secretions in histhroat area. This morning he has nausea but it seems his vomiting is less.According to the son, he dry heaves more than he actually vomits or bringupany food. He has no abdominal pain. No chest pain. He has dyspnea onexertion. He is often constipated. No blood in the stool noted. He did notsee blood in the urine but his urinalysis showed blood in the urine. Patientdid not pass out. No social activity. No change in his vision.EXAMINATIONThe patient is awake and oriented well. The patient was coughing as I wastalking to him.Eyes: Noted with no jaundice.ENT: No mouth ulcers.Lungs: Showed harsh breathing sounds.Abdomen: Soft with no tenderness. No distention. Bowel sounds normal. Noascites and no organomegaly.Extremities: Noted with no edema.Skin: Showed no skin rash but ecchymosis noted in multiple areas of theskin.LABS AND X-RAYSCreatinine is 2.5, BUN is 47. Sodium and potassium are normal. Hiscreatinine was normal in August. Lactic acid was slightly elevated. Hiswhite blood cell count is 8.6, hemoglobin 16.2. His creatinine yesterday was2.9.IMPRESSIONAcute episode of nausea and vomiting. This occurred in the setting ofmultiple problems including the respiratory infection and management ofkidney stones. Patient developed acute renal failure during this episode andthis is concerning to be the etiology of his nausea and vomiting along thesame line.I doubt this is a primary stomach problem.Multiple comorbid conditions as noted above.GI RECOMMENDATIONS1. For his nausea and vomiting, I think we should approach him withsymptomatic treatment. He is getting Zofran as needed. We can add a smalldose of Reglan before every time he eats to see if that will help with hissymptoms.2. Continue to address his kidney function which shows some improvement withgentle hydration and this should be continued with close monitoring.3. If there is any concern about kidney stones causing hydronephrosis, thenUrology reconsultation may be needed.4. GI prophylaxis.5. We will address constipation with suppositories in the evening andMiraLAX as needed.6. Follow progress.7. I have also had discussion withthe patient to pursue colonoscopyevaluation for screening after discharge.I appreciate the opportunity to participate in the care of Mr. Verna Sebastian.Electronically Authenticated and Edited by:Albert Craft MD On 10/27/2016 12:18 PM CDT NEIL Brown/rusty GG: 10/22/2016 15:55TD: 10/23/2016 11:54CC:Wesley Em M.D. documented in this encounter Plan of Treatment Not on file documented as of this encounter Procedures Procedure Name Priority Date/Time Associated Diagnosis Comments XR CHEST PA LATERAL 2 VIEWS Routine 10/23/2016 2:[address] ABDOMEN PELVIS WO CONTRAST Routine 10/22/2016 7:07 PM CDT SURGICAL PATHOLOGY Routine 10/22/2016 8: 48 AM CDT XR CHEST PORTABLE Routine 10/22/2016 2:0 3 AM CDT documented in this encounter Results * XR Chest Pa Lateral 2 Vw (10/23/2016 2:17 PM CDT) Anatomical Region Laterality Modality Body, Chest N/A Radiographic Jennifer ging 10/23/2016 2:17 PM CDT Narrative 10/23/2016 2:17 PM CDT XR Chest 2 Views ?[id number] ??Acc#: ??[id number] DATE OF EXAM: ??Oct 23 2016 CLINICAL HISTORY: Cough and shortness of breath. ??Chest pain. RESULT: PA and lateral projections obtained, compared with 10/21/16. ??Minimal atelectasis left lower lung field, slightly improved from the prior study. ??Lungs are free of confluent infiltrates. ??Costophrenic angles are sharp. ??Cardiac silhouette size is normal. ??Arteriosclerotic changes of the aorta. ??Cardiac monitoring electrodes superimpose the chest. Degenerative changes thoracic spine with dextroscoliosis. IMPRESSION: 1. MINIMAL ATELECTASIS LEFT LOWER LUNG FIELD, MINIMALLY IMPROVED FROM THE PRIOR STUDY. Interpreting Physician: ??REECE OLVERA M.D. ??Read on: ??Oct 23 2016 10:29A Transcribed by: ??beena ??On: Oct 23 2016 ??5:40P Approved Electronically by: ??REECE OLVERA M.D. ??on: ??Oct 24 2016 ??8:50A Attending: ??DR MARITZA LUNDBERG Requesting: ??DR MARITZA LUNDBERG Requesting Fax: ??[phone] Attending Fax: ??-- Attending ID: ??[id number] Requesting ID: ??[id number] Report To 1 ID: ??[id number] Report To 1 Name: ??DR JENNIFER MILES Report To 1 FAX: ??-- NextGen Order #: ?? Procedure Note Miscellaneous, Not In File / Provider, MD Wilian - 11/25/2016 XR Chest 2 Views [id number] Acc#: [id number] DATE OF EXAM: Oct 23 2016 CLINICAL HISTORY: Cough and shortness of breath. Chest pain. RESULT: PA and lateral projections obtained, compared with 10/21/16. Minimalatelectasis left lower lung field, slightly improved from the prior study.Lungs are free of confluent infiltrates. Costophrenic angles are sharp.Cardiac silhouette size is normal. Arteriosclerotic changes of the aorta.Cardiac monitoring electrodes superimpose the chest. Degenerative changesthoracic spine with dextroscoliosis. IMPRESSION: 1. MINIMAL ATELECTASIS LEFT LOWER LUNG FIELD, MINIMALLY IMPROVED FROM THEPRIOR STUDY. Interpreting Physician: REECE OLVERA M.D. Read on: Oct 23 2016 10:29A Transcribed by: beena On: Oct 23 2016 5:40P Approved Electronically by: REECE OLVERA M.D. on: Oct 24 2016 8:50A Attending: DR MARITZA LUNDBERG Requesting: DR MARITZA LUNDBERG Requesting Attending Fax: -- Attending ID: [id number] Requesting ID: [id number] Report To 1 ID: [id number] Report To 1 Name: DR JENNIFER MILES Report To 1 FAX: -- NextGen Order #: us Not In File Miscellaneous IMG XR PROCEDURES Iwona l Result * CT Abdomen Pelvis WO Contrast (10/22/2016 7:07 PM CDT) Anatomical Region Laterality Modality Body N/A Computed Tomogra phy 10/22/2016 7:07 PM CDT Narrative 10/22/2016 7:[address] Abd/[place] ?[id number] ??Acc#: ??[id number] DATE OF EXAM: ??Oct 22 2016 CLINICAL HISTORY: Nausea and vomiting. ??Dehydration. RESULT: Helical CT scan of the abdomen and pelvis obtained noncontrast. ??No oral or IV contrast administered as requested. ??Images from the lung bases to the ischial tuberosities. ??Compared with the prior study of 09/09/16. A small nonobstructing calculus is seen within the proximal right ureter, near the junction of the proximal and midthirds. ??Intrarenal calculi right kidney lower pole, one calculus measuring 8 mm, and a smaller adjacent calculus. ??The pelvocaliectasis has diminished bilaterally, now mild to moderate on right, more mild on the left. ??Some mild dilatation of the ureters bilaterally, which is similar to previously. ??Numerous calcifications/calculi within the urinary bladder at the base. ??Similar appearance to the recent study. ??Some mild wall thickening urinary bladder. ??Prostatomegaly, with a transverse dimension of 5.4 cm. ??Small prostate calcifications are evident. ??Diverticulosis particularly sigmoid colon. ??No definite evidence of diverticulitis. ??Evaluation of the gastrointestinal tract is limited without oral contrast. ??No significant small bowel dilatation identified. ??Gallbladder appears unremarkable. Spleen size within the normal range. ??Lack of intravenous contrast makes evaluation suboptimal for the liver, spleen, pancreas and kidneys. ??Some minimal to mild perinephric stranding bilaterally, which is similar to previously. ??No adrenal mass identified. ??Significant calcification abdominal aorta and iliac arteries consistent with arteriosclerotic changes. ??Umbilical hernia containing only adipose tissue, maximal dimension of 2.8 cm. ??Degenerative changes lumbar spine and visualized portion of the lower thoracic spine with spurring. ??There appears to be a calculus within the urinary bladder at or near the opening of the urethra. ??In the visualized portions of the lung bases no infiltrate or effusion identified. ??Some small stones were evident in the gallbladder on the prior study, which are difficult to definitely identify on the current examination. ??Once again noted is a cyst at the lower pole of the left kidney measuring 3.4 cm. ??Slightly prominent adipose tissue within the left inguinal canal consistent with hernia. ??No bowel extending into the hernia. IMPRESSION: 1. PELVOCALIECTASIS OF THE KIDNEYS BILATERALLY, WHICH IS DECREASED FROM THE PRIOR STUDY OF 09/09/16. ??BILATERAL URETERAL DILATATION, WHICH IS SIMILAR TO PREVIOUSLY. ??CALCULUS WITHIN THE PROXIMAL RIGHT URETER, ALTHOUGH THIS IS NOT CAUSING SIGNIFICANT OBSTRUCTION. ??INTRARENAL CALCULI RIGHT KIDNEY, NONOBSTRUCTING. 2. NUMEROUS CALCIFICATIONS/CALCULI IN THE URINARY BLADDER, PRESENT PREVIOUSLY. ??ONE SMALL CALCULUS INFERIOR ASPECT OF THE URINARY BLADDER IS NEAR THE OPENING OF THE URETHRA. 3. DIVERTICULOSIS. ??NO DEFINITE EVIDENCE OF DIVERTICULITIS. 4. UMBILICAL HERNIA CONTAINING ONLY ADIPOSE TISSUE. 5. PROSTATOMEGALY. 6. LEFT RENAL CYST. Preliminary report faxed to [facility] 10/23/16 at 10:21am Interpreting Physician: ??REECE OLVERA M.D. ??Read on: ??Oct 22 2016 ??2:57P Transcribed by: ??vaalisson ??On: Oct 23 2016 10:21A Approved Electronically by: ??REECE OLVERA M.D. ??on: ??Oct 24 2016 ??8:46A Attending: ??DR MARITZA LUNDBERG Requesting: ??DR MARITZA LUNDBERG Requesting Fax: ??[phone] Attending Fax: ??-- Attending ID: ??[id number] Requesting ID: ??[id number] Report To 1 ID: ??[id number] Report To 1 Name: ??DR JENNIFER MILES Report To 1 FAX: ??-- NextGen Order #: ?? Procedure Note Miscellaneous, Not In File / Provider, MD Wilian - 11/25/2016 CT Abd/[place] [id number] Acc#: [id number] DATE OF EXAM: Oct 22 2016 CLINICAL HISTORY: Nausea and vomiting. Dehydration. RESULT: Helical CT scan of the abdomen and pelvis obtained noncontrast. No oralor IV contrast administered as requested. Images from the lung bases tothe ischial tuberosities. Compared with the prior study of 09/09/16. Asmall nonobstructing calculus is seen within the proximal right ureter,near the junction of the proximal and midthirds. Intrarenal calculi rightkidney lower pole, one calculus measuring 8 mm, and a smaller adjacentcalculus. The pelvocaliectasis has diminished bilaterally, now mild tomoderate on right, more mild on the left. Some mild dilatation of theureters bilaterally, which is similar to previously. Numerouscalcifications/calculi within the urinary bladder at the base. Similarappearance to the recent study. Some mild wall thickening urinarybladder. Prostatomegaly, with a transverse dimension of 5.4 cm. Smallprostate calcifications are evident. Diverticulosis particularly sigmoidcolon. No definite evidence of diverticulitis. Evaluation of the gastrointestinal tract is limited without oral contrast. No significantsmall bowel dilatation identified. Gallbladder appears unremarkable.Spleen size within the normal range. Lack of intravenous contrast makesevaluation suboptimal for the liver, spleen, pancreas and kidneys. Someminimal to mild perinephric stranding bilaterally, which is similar topreviously. No adrenal mass identified. Significant calcificationabdominal aorta and iliac arteries consistent with arterioscleroticchanges. Umbilical hernia containing only adipose tissue, maximaldimension of 2.8 cm. Degenerative changes lumbar spine and visualizedportion of the lower thoracic spine with spurring. There appears to be acalculus within the urinary bladder at or near the opening of the urethra.In the visualized portions of the lung bases no infiltrate or effusionidentified. Some small stones were evident in the gallbladder on theprior study, which are difficult to definitely identify on the current examination. Once again noted is a cyst at the lower pole of the leftkidney measuring 3.4 cm. Slightly prominent adipose tissue within theleft inguinal canal consistent with hernia. No bowel extending into thehernia. IMPRESSION: 1. PELVOCALIECTASIS OF THE KIDNEYS BILATERALLY, WHICH IS DECREASED FROMTHE PRIOR STUDY OF 09/09/16. BILATERAL URETERAL DILATATION, WHICH ISSIMILAR TO PREVIOUSLY. CALCULUS WITHIN THE PROXIMAL RIGHT URETER,ALTHOUGH THIS IS NOT CAUSING SIGNIFICANT OBSTRUCTION. INTRARENAL CALCULIRIGHT KIDNEY, NONOBSTRUCTING. 2. NUMEROUS CALCIFICATIONS/CALCULI IN THE URINARY BLADDER, PRESENTPREVIOUSLY. ONE SMALL CALCULUS INFERIOR ASPECT OF THE URINARY BLADDER ISNEAR THE OPENING OF THE URETHRA. 3. DIVERTICULOSIS. NO DEFINITE EVIDENCE OF DIVERTICULITIS. 4. UMBILICAL HERNIA CONTAINING ONLY ADIPOSE TISSUE. 5. PROSTATOMEGALY. 6. LEFT RENAL CYST. Preliminary report faxed to [facility] 10/23/16 at 10:21am Interpreting Physician: REECE OLVERA M.D. Read on: Oct 22 2016 2:57P Transcribed by: beena On: Oct 23 2016 10:21A Approved Electronically by: REECE OLVERA M.D. on: Oct 24 2016 8:46A Attending: DR MARITZA LUNDBERG Requesting: DR MARITZA LUNDBERG Requesting Attending Fax: -- Attending ID: [id number] Requesting ID: [id number] Report To 1 ID: [id number] Report To 1 Name: DR JENNIFER MILES Report To 1 FAX: -- NextGen Order #: us Not In File Miscellaneous IMG CT PROCEDURES Iwona l Result * Surgical pathology (10/22/2016 8:48 AM CDT) 10/22/2016 8:48 AM CDT 10/24/2016 8:48 AM CDT [facility] - 10/27/2016 3:24 PM CDT [facility] Department of Pathology [address] [place] [id number] Final Report with Addendum ?Patient Name: VERNA ZUNIGA Address: [address] Service: Medical ??[place], [place] ??[address] Location: [facility] C[facility] Taken: 10/22/2016 Gender: M Received 10/24/2016 : 1945 (Age: 71) Hospital #: [id number] Accessioned: 10/24/2016 ?? Patient Type: [facility] IP Reported 10/27/2016 Physician(s): Maritza Lundberg MD ?? Diagnosis: KIDNEY, PROCEDURE NOT SPECIFIED: ? - CALCULI (GROSS EXAMINATION ONLY) ? - CHEMICAL ANALYSIS PENDING ?? Brooklyn Ortiz M.D. ??Report Electronically Reviewed and Signed Out By ??Brooklyn Ortiz M.D. ??10/27/2016 15:24:22 Procedure/Addenda: Scanned Report Interpretation Stone analysis has been completed at [facility] [employer]. See scanned image of results ([id number]) below or review results in the Pathology section in Clinical Desktop. If access to Clinical Desktop is not available, please call pathology for a hard copy of the analysis ([phone]). ? Report Electronically Reviewed and Signed Out By ??Loren Orlando ??10/28/2016 09:44:46 ? Specimen(s) Received: A: Renal stone Clinical History: Dehydration, nausea and vomiting. Gross Description: The specimen is submitted in a single container labeled Verna Tendick and renal stone . ??It is multiple light penny calculi that range from small flecks up to 0.2 cm in greatest dimension. ??The specimen is entirely submitted for chemical analysis. ??Brooklyn Ortiz MD/Alen Martines P.A. The performance characteristics of some immunohistochemical stains, fluorescence in-situ hybridization tests and immunophenotyping by flow cytometry cited in this report (if any) were determined by the Surgical Pathology Department at [facility] as part of an ongoing it quality assurance analyst program and in compliance with federally mandated [...] characteristics determined by the Surgical Pathology Department [facility]. ??It has not been cleared or approved by the U. S. Food and Drug Administration. Maritza Lundberg MD LAB PATHOLOGY ORDERABLES Edited Result - Final [facility] [address] [place] [address] * XR Chest Portable (10/22/2016 2:03 AM CDT) Anatomical Region Laterality Modality Body N/A Radiographic Jennifer ging 10/22/2016 2:03 AM CDT Narrative 10/22/2016 2:03 AM CDT XR Chest Portable ? [id number] ??Acc#: ??[id number] DATE OF EXAM: ??Oct 21 2016 CLINICAL HISTORY: Cough, nausea, vomiting. History of tobacco use. RESULT: Two portable AP views obtained with the patient erect, compared with 10/15/16. ??Cardiac size and pulmonary vascularity are within the range of normal. ??Lungs are free of confluent infiltrates. ??Costophrenic angles are sharp. ??Arteriosclerotic changes of the aorta. ??Some minimal atelectasis left lung base. ??Degenerative changes thoracic spine with dextroscoliosis. IMPRESSION: MINIMAL ATELECTASIS LEFT LUNG BASE. Interpreting Physician: ??REECE OLVERA M.D. ??Read on: ??Oct 21 2016 ??9:55P Transcribed by: ??ylc ??On: Oct 22 2016 10:16A Approved Electronically by: ??REECE OLVERA M.D. ??on: ??Oct 24 2016 ??8:35A Attending: ??DR MARITZA LUNDBERG Requesting: ??DR JENNIFER MILES Requesting Fax: ??-- Attending Fax: ??-- Attending ID: ??[id number] Requesting ID: ??[id number] Report To 1 ID: ??[id number] Report To 1 Name: ??DR JENNIFER MILES Report To 1 FAX: ??-- NextGen Order #: ?? Procedure Note Miscellaneous, Not In File / Provider, MD Wilian - 11/26/2016 XR Chest Portable [id number] Acc#: [id number] DATE OF EXAM: Oct 21 2016 CLINICAL HISTORY: Cough, nausea, vomiting. History of tobacco use. RESULT: Two portable AP views obtained with the patient erect, compared with10/15/16. Cardiac size and pulmonary vascularity are within the range ofnormal. Lungs are free of confluent infiltrates. Costophrenic angles aresharp. Arteriosclerotic changes of the aorta. Some minimal atelectasisleft lung base. Degenerative changes thoracic spine withdextroscoliosis. IMPRESSION: MINIMAL ATELECTASIS LEFT LUNG BASE. Interpreting Physician: REECE OLVERA M.D. Read on: Oct 21 2016 9:55P Transcribed by: edinson On: Oct 22 2016 10:16A Approved Electronically by: REECE OLVERA M.D. on: Oct 24 2016 8:35A Attending: DR MARITZA LUNDBERG Requesting: DR JENNIFER MILES Requesting Fax: -- Attending Fax: -- Attending ID: [id number] Requesting ID: [id number] Report To 1 ID: [id number] Report To 1 Name: DR JENNIFER MILES Report To 1 FAX: -- NextGen Order #: us Not In File Miscellaneous IMG XR PROCEDURES Iwona l Result documented in this encounter Visit Diagnoses Not on filedocumented in this encounter Care Teams Hypoid Gear Tester Relationship Specialty Start Date End Date Wesley Em MD PCP - General 09/30/16 12/01/21 documented as of this encounter
--- OUTSIDE RECORDS SUMMARY | 2024-06-18 18:16 | XMS_ITS | Encounter Summary ---
Author Organization [facility] Address [address] [place] [address] Care Team Providers Care Felt Dyeing Machine Tender Name Role Phone Wesley Em MD Primary Care Provider [phone] Encounter Details Date Type Department Care Team (Late st Contact Info) Description 10/23/2016 Orders Only [facility] 1 [place] [phone] Kathleen Lundberg MD [address] [id number] Social History Tobacco Use Types Packs/Day Years Used Date Smoking Tobacco: Former Alcohol Use Standard Drinks/Week Comments No 0 (1 standard drink = 0.6 oz pur e alcohol) Sex and Gender Information Value Date Recorded Sex Assigned at Not on file 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 Gender Identity Not on file Sexual Orientation Straight 01/23/2021 10 :16 PM CDT documented as of this encounter Plan of Treatment Not on file documented as of this encounter Procedures Procedure Name Priority Date/Time Associated Diagnosis Comments DIFFERENTIAL AUTO Routine 10/23/2016 3:1 0 AM CDT documented in this encounter Results * (ABNORMAL) Differential, auto (10/23/2016 3:10 AM CDT) Neutrophil pct 73.9 44.0 - 80.0 % [facility] ([facility]) Imm gran pct 0.6 0.0 - 1.0 % [facility] ([place]) Lymphocyte pct 15.8 13.0 - 44.0 % [facility] ([place]) Monocyte pct 8.7 2.0 - 11.0 % [facility] ([place]) Eosinophil pct 0.3 0.0 - 6.0 % [facility] ([place]) Basophil pct 0.7 0.0 - 3.0 % [facility] ([place]) Neutrophil abs 9.10(H) 1.60 - 7.00 K/cumm [facility] ([place]) Imm gran abs 0.07 0.00 - 0.20 K/cumm [facility] ([place]) Lymphocyte abs 1.94 0.50 - 4.30 K/cumm [facility] ([place]) Monocyte abs 1.07(H) 0.10 - 1.00 K/cumm [facility] ([place]) Eosinophil abs 0.04 0.00 - 0.60 K/cumm [facility] ([place]) Basophil abs 0.09 0.00 - 0.30 K/cumm [facility] ([place]) Blood specimen (specimen) 10/23/2016 3:10 AM CDT 10/23/2016 3:57 AM CDT us Kathleen Lundberg MD LAB BLOOD ORDERABLES Final Resul t [facility] ([facility]) 1 [facility] Department [place] [address] documented in this encounter Visit Diagnoses Not on filedocumented in this encounter Care Teams Felt Dyeing Machine Tender Relationship Specialty Start Date End Date Wesley Em MD PCP - General 09/30/16 12/01/21 documented as of this encounter
--- OUTSIDE RECORDS SUMMARY | 2024-06-18 18:16 | XMS_ITS | Encounter Summary ---
Author Organization [facility] Address [address] [place] [address] Care Team Providers Care Electroplating Laborer Name Role Phone Wesley Em MD Primary Care Provider [phone] Encounter Details Date Type Department Care Team (Late st Contact Info) Description 10/23/2016 Orders Only [facility] 1 [place] [phone] Kathleen Lundberg MD [address] [address] Social History Tobacco Use Types Packs/Day Years Used Date Smoking Tobacco: Former Alcohol Use Standard Drinks/Week Comments No 0 (1 standard drink = 0.6 oz pur e alcohol) Sex and Gender Information Value Date Recorded Sex Assigned at Not on file 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 Gender Identity Not on file Sexual Orientation Straight 01/23/2021 10 :16 PM CDT documented as of this encounter Plan of Treatment Not on file documented as of this encounter Procedures Procedure Name Priority Date/Time Associated Diagnosis Comments GLUCOSE POC Routine 10/23/2016 2:32 AM CDT documented in this encounter Results * Glucose POC (10/23/2016 2:32 AM CDT) Glucose, POC 86 71 - 98 mg/dL [facility] ([facility]) Blood specimen (specimen) 10/23/2016 2:32 AM CDT 10/23/2016 2:32 AM CDT us Kathleen Lundberg MD POINT OF CARE TEST ORDERABLES Fi nal Result [facility] ([facility]) 1 [facility] Department [place] [address] documented in this encounter Visit Diagnoses Not on filedocumented in this encounter Care Teams Electroplating Laborer Relationship Specialty Start Date End Date Wesley Em MD PCP - General 09/30/16 12/01/21 documented as of this encounter
--- OUTSIDE RECORDS SUMMARY | 2024-06-18 18:16 | XMS_ITS | Encounter Summary ---
Author Organization [facility] Address [address] [place] [address] Care Team Providers Care Protective Signal Superintendent Name Role Phone Wesley Em MD Primary Care Provider [phone] Encounter Details Date Type Department Care Team (Late st Contact Info) Description 10/22/2016 Orders Only [facility] Hospitalists 1 [place] [phone] Kathleen Lundberg MD [address] [id number] Social History Tobacco Use Types Packs/Day Years Used Date Smoking Tobacco: Former Alcohol Use Standard Drinks/Week Comments No 0 (1 standard drink = 0.6 oz pur e alcohol) Sex and Gender Information Value Date Recorded Sex Assigned at Not on file Legal 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 Male 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 Gender Identity Not on file Sexual Orientation Straight 01/23/2021 10 :16 PM CDT documented as of this encounter Plan of Treatment Not on file documented as of this encounter Procedures Procedure Name Priority Date/Time Associated Diagnosis Comments LACTATE, WHOLE BLOOD Routine 10/22/2016 5:49 PM CDT documented in this encounter Results * Lactate, whole blood (10/22/2016 5:49 PM CDT) Lactate, bld 1.6 0.5 - 2.2 mmol/L [facility] ([place]) Blood specimen (specimen) 10/22/2016 5:49 PM CDT 10/22/2016 5:50 PM CDT us Kathleen Lundberg MD LAB BLOOD ORDERABLES Final Resul t [facility] ([place]) 1 [facility] Department [place] [address] documented in this encounter Visit Diagnoses Not on filedocumented in this encounter Care Teams Protective Signal Superintendent Relationship Specialty Start Date End Date Wesley Em MD PCP - General 09/30/16 12/01/21 documented as of this encounter
--- OUTSIDE RECORDS SUMMARY | 2024-06-18 18:16 | XMS_ITS | Encounter Summary ---
Author Organization [facility] Address [address] [place] [address] Care Team Providers Care Paper Coater Name Role Phone Wesley Em MD Primary Care Provider [phone] Encounter Details Date Type Department Care Team (Late st Contact Info) Description 10/25/2016 Orders Only [facility] [address] [facility] [address] [place] [phone] Wesley Em MD [address] [place] [phone] Social History Tobacco Use Types Packs/Day Years Used Date Smoking Tobacco: Former Alcohol Use Standard Drinks/Week Comments No 0 (1 standard drink = 0.6 oz pur e alcohol) Sex and Gender Information Value Date Recorded Sex Assigned at Not on file 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 60 - 89 mL/min/1.73m2 Mildly to moderately decreased ?45 - 59 mL/min/1.73m2 Moderately to severely decreased ??30 - 44 mL/min/1.73m2 Severely decreased ?15 - 29 mL/min/1.73m2 Kidney Failure ?< 15 ??mL/min/1.73m2 *Relative to young adult level If -Belgian multiply value by 1.16. Estimated glomerular filtration [...] was last reviewed 2016. Blood specimen (specimen) 10/25/2016 10:49 AM CDT 10/25/2016 3:59 PM CDT us Wesley Em MD LAB BLOOD ORDERABLES Final Res ult Performing Organization Address City/State/[facility] Phone Number [facility] [address] Department of Laboratories [place], [place] [phone] documented in this encounter Visit Diagnoses Not on filedocumented in this encounter Care Teams Paper Coater Relationship Specialty Start Date End Date Wesley Em MD PCP - General 09/30/16 12/01/21 documented as of this encounter
--- OUTSIDE RECORDS SUMMARY | 2024-06-18 18:16 | XMS_ITS | Encounter Summary ---
Author Organization [facility] Address [address] [place] [address] Care Team Providers Care Manager Motor Name Role Phone Wesley Em MD Primary Care Provider [phone] Encounter Details Date Type Department Care Team (Late st Contact Info) Description 10/22/2016 Orders Only [facility] Hospitalists 1 [place] [phone] Kathleen Lundberg MD 4 [place] [phone] Social History Tobacco Use Types Packs/Day Years Used Date Smoking Tobacco: Former Alcohol Use Standard Drinks/Week Comments No 0 (1 standard drink = 0.6 oz pur e alcohol) Sex and Gender Information Value Date Recorded Sex Assigned at Not on file 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 Gender Identity Not on file Sexual Orientation Straight 01/23/2021 10 :16 PM CDT documented as of this encounter Plan of Treatment Not on file documented as of this encounter Procedures Procedure Name Priority Date/Time Associated Diagnosis Comments HEMOGLOBIN A1C Routine 10/22/2016 5:49 PM CDT documented in this encounter Results * (ABNORMAL) Hemoglobin A1c (10/22/2016 5:49 PM CDT) Hgb A1C 6.1(H) 4.0 - 6.0 % [facility] ([facility]) Estimated Average Glucose 128 [facility] ([facility]) Blood specimen (specimen) 10/22/2016 5:49 PM CDT 10/22/2016 5:50 PM CDT us Kathleen Lundberg MD LAB BLOOD ORDERABLES Final Resul t [facility] ([place]) 1 [facility] Department [place] [address] documented in this encounter Visit Diagnoses Not on filedocumented in this encounter Care Teams Manager Motor Relationship Specialty Start Date End Date Wesley Em MD PCP - General 09/30/16 12/01/21 documented as of this encounter
--- OUTSIDE RECORDS SUMMARY | 2024-06-18 18:16 | XMS_ITS | Encounter Summary ---
Author Organization [facility] Address [address] [place] [address] Care Team Providers Care Single Spindle Screw Machine Operator Name Role Phone Wesley Em MD Primary Care Provider [phone] Encounter Details Date Type Department Care Team (Late st Contact Info) Description 11/04/2016 Orders Only [facility] 2 [facility] [address] [place] [phone] Wesley Em MD [address] [place] [address] [address] [place], [place] [phone] Social History Tobacco Use Types Packs/Day Years Used Date Smoking Tobacco: Former Alcohol Use Standard Drinks/Week Comments No 0 (1 standard drink = 0.6 oz pur e alcohol) Sex and Gender Information Value Date Recorded Sex Assigned at Not on file Legal Sex Male 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 Gender Identity Not on file Sexual Orientation Straight 01/23/2021 10 :16 PM CDT documented as of this encounter Plan of Treatment Not on file documented as of this encounter Procedures Procedure Name Priority Date/Time Associated Diagnosis Comments DIFFERENTIAL AUTO Routine 11/04/2016 8:5 5 AM CDT documented in this encounter Results * Differential, auto (11/04/2016 8:55 AM CDT) Neutrophil pct 65.7 % [facility] Imm gran pct 0.4 % [facility] Lymphocyte pct 19.5 % [facility] Monocyte pct 9.2 % [facility] Eosinophil pct 0.3 % [facility] Basophil pct 1.3 % [facility] Neutrophil abs 4.92 1.70 - 6.50 K/cumm [facility] Imm gran abs 0.03 0.00 - 0.10 K/cumm [facility] Lymphocyte abs 1.46 0.80 - 3.30 K/cumm [facility] Monocyte abs 0.69 0.20 - 0.80 K/cumm [facility] Eosinophil abs 0.29 0.00 - 0.50 K/cumm [facility] Basophil abs 0.10 0.00 - 0.10 K/cumm [facility] Blood specimen (specimen) 11/04/2016 8:55 AM CDT 11/04/2016 10:07 AM CDT Wesley Em MD LAB BLOOD ORDERABLES Final Res ult Performing Organization Address City/State/[facility] Co de Phone Number [facility] [address] [place] [address] documented in this encounter Visit Diagnoses Not on filedocumented in this encounter Care Teams Single Spindle Screw Machine Operator Relationship Specialty Start Date End Date Wesley Em MD PCP - General 09/30/16 12/01/21 documented as of this encounter
--- OUTSIDE RECORDS SUMMARY | 2024-06-18 18:16 | XMS_ITS | Encounter Summary ---
Author Organization [facility] Address [address] [place] [address] Care Team Providers Care Molder Inflated Ball Name Role Phone Wesley Em MD Primary Care Provider [phone] Encounter Details Date Type Department Care Team (Late st Contact Info) Description 10/23/2016 Orders Only [facility] [phone] Albert Craft MD [address] [place], [place] [phone] Social History Tobacco Use Types Packs/Day Years Used Date Smoking Tobacco: Former Alcohol Use Standard Drinks/Week Comments No 0 (1 standard drink = 0.6 oz pur e alcohol) Sex and Gender Information Value Date Recorded Sex Assigned at Not on file 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 Gender Identity Not on file Sexual Orientation Straight 01/23/2021 10 :16 PM CDT documented as of this encounter Plan of Treatment Not on file documented as of this encounter Procedures Procedure Name Priority Date/Time Associated Diagnosis Comments RENAL FUNCTION PANEL Routine 10/23/2016 3:10 AM CDT documented in this encounter Results * (ABNORMAL) Renal function panel (10/23/2016 3:10 AM CDT) Sodium 142 135 - 145 mmol/L [facility] ([place]) Potassium 4.0 3.5 - 5.1 mmol/L [facility] ([facility]) Chloride 104 97 - 110 mmol/L [facility] ([facility]) CO2 24 22 - 32 mmol/L [facility] ([facility]) Anion gap 14 8 - 16 mmol/L [facility] ([facility]) Glucose 124 70 - 199 mg/dL [facility] ([facility]) [...] data was last revised on 2014. BUN 32.3(H) 8.0 - 25.0 mg/dL [facility] ([facility]) Creatinine 2.08(H) 0.70 - 1.30 mg/dL [facility] ([facility]) BUN/creat ratio 16 10 - 20 [facility] ([facility]) Calcium 8.4(L) 8.6 - 10.2 mg/dL [facility] ([place]) Phosphorus, pl 4.0 2.5 - 4.5 mg/dL [facility] ([place]) Albumin 3.7 3.6 - 5.0 g/dL [facility] ([facility]) Blood specimen (specimen) 10/23/2016 3:10 AM CDT 10/23/2016 3:57 AM CDT Albert Craft MD LAB BLOOD ORDERABLES Final Result [facility] ([facility]) 1 [facility] Department [place] [address] documented in this encounter Visit Diagnoses Not on filedocumented in this encounter Care Teams Molder Inflated Ball Relationship Specialty Start Date End Date Wesley Em MD PCP - General 09/30/16 12/01/21 documented as of this encounter
--- OUTSIDE RECORDS SUMMARY | 2024-06-18 18:16 | XMS_ITS | Encounter Summary ---
Author Organization [facility] Address [address] [place] [address] Care Team Providers Care Substation Supervisor Name Role Phone Wesley Em MD Primary Care Provider [phone] Encounter Details Date Type Department Care Team (Late st Contact Info) Description 10/22/2016 Orders Only [facility] 1 [place] [phone] Kathleen Lundberg MD [address] [phone] Social History Tobacco Use Types Packs/Day Years Used Date Smoking Tobacco: Former Alcohol Use Standard Drinks/Week Comments No 0 (1 standard drink = 0.6 oz pur e alcohol) Sex and Gender Information Value Date Recorded Sex Assigned at Not on file 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 Gender Identity Not on file Sexual Orientation Straight 01/23/2021 10 :16 PM CDT documented as of this encounter Plan of Treatment Not on file documented as of this encounter Procedures Procedure Name Priority Date/Time Associated Diagnosis Comments GLUCOSE POC Routine 10/22/2016 5:04 PM CDT documented in this encounter Results * (ABNORMAL) Glucose POC (10/22/2016 5:04 PM CDT) Glucose, POC 116(H) 71 - 98 mg/dL [facility] ([place]) Blood specimen (specimen) 10/22/2016 5:04 PM CDT 10/22/2016 5:04 PM CDT Kathleen Lundberg MD POINT OF CARE TEST ORDERABLES Fi nal Result [facility] ([place]) 1 [facility] Department [place] [address] documented in this encounter Visit Diagnoses Not on filedocumented in this encounter Care Teams Substation Supervisor Relationship Specialty Start Date End Date Wesley Em MD PCP - General 09/30/16 12/01/21 documented as of this encounter
--- OUTSIDE RECORDS SUMMARY | 2024-06-18 18:16 | XMS_ITS | Encounter Summary ---
Author Organization [facility] Medical Group Address [address] [place] [address] Care Team Providers Care Functional Manager Name Role Phone Wesley Em MD Primary Care Provider [phone] Encounter Details Date Type Department Care Team (Late st Contact Info) Description 10/23/2016 Orders Only [facility] 1 [place] [id number] Kathleen Lundberg MD [address] [address] Social History Tobacco Use Types Packs/Day Years Used Date Smoking Tobacco: Former Alcohol Use Standard Drinks/Week Comments No 0 (1 standard drink = 0.6 oz pur e alcohol) Sex and Gender Information Value Date Recorded Sex Assigned at Not on file Legal Sex Male 6:00 PM PICKER Gender Identity Not on file Sexual Orientation Straight 01/23/2021 10 :16 PM CDT documented as of this encounter Plan of Treatment Not on file documented as of this encounter Procedures Procedure Name Priority Date/Time Associated Diagnosis Comments GLUCOSE POC Routine 10/23/2016 7:55 AM CDT documented in this encounter Results * Glucose POC (10/23/2016 7:55 AM CDT) Glucose, POC 87 71 - 98 mg/dL [facility] ([place]) Blood specimen (specimen) 10/23/2016 7:55 AM CDT 10/23/2016 7:55 AM CDT us Kathleen Lundberg MD POINT OF CARE TEST ORDERABLES Fi nal Result [facility] ([place]) 1 [facility] Department [place] [address] documented in this encounter Visit Diagnoses Not on filedocumented in this encounter Care Teams Functional Manager Relationship Specialty Start Date End Date Wesley Em MD PCP - General 09/30/16 12/01/21 documented as of this encounter
--- OUTSIDE RECORDS SUMMARY | 2024-06-18 18:16 | XMS_ITS | Encounter Summary ---
Author Organization [facility] Medical Group Address [address] [place] [address] Care Team Providers Care Chrome Tanner Name Role Phone Wesley Em MD Primary Care Provider [phone] Encounter Details Date Type Department Care Team (Late st Contact Info) Description 10/23/2016 Orders Only [facility] 1 [place] [id number] Kathleen Lundberg MD [address] [id number] Social History Tobacco Use Types Packs/Day Years Used Date Smoking Tobacco: Former Alcohol Use Standard Drinks/Week Comments No 0 (1 standard drink = 0.6 oz pur e alcohol) Sex and Gender Information Value Date Recorded Sex Assigned at Not on file 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 Gender Identity Not on file Sexual Orientation Straight 01/23/2021 10 :16 PM CDT documented as of this encounter Plan of Treatment Not on file documented as of this encounter Procedures Procedure Name Priority Date/Time Associated Diagnosis Comments GLUCOSE POC Routine 10/23/2016 11:18 AM CDT documented in this encounter Results * (ABNORMAL) Glucose POC (10/23/2016 11:18 AM CDT) Glucose, POC 139(H) 71 - 98 mg/dL [facility] ([place]) Blood specimen (specimen) 10/23/2016 11:18 AM CDT 10/23/2016 11:18 AM CDT us Kathleen Lundberg MD POINT OF CARE TEST ORDERABLES Fi nal Result [facility] ([place]) 1 [facility] Department [place] [address] documented in this encounter Visit Diagnoses Not on filedocumented in this encounter Care Teams Chrome Tanner Relationship Specialty Start Date End Date Wesley Em MD PCP - General 09/30/16 12/01/21 documented as of this encounter
--- OUTSIDE RECORDS SUMMARY | 2024-06-18 18:17 | XMS_ITS | Encounter Summary ---
Author Organization [facility] Healthcare Address [address] [place] [address] Care Team Providers Care Strip Presser Name Role Phone Wesley Em MD Primary Care Provider [phone] Encounter Details Date Type Department Care Team (Late st Contact Info) Description 09/04/2014 7:32 AM CONTRACTOR GENERAL BUILDING - 09/04/2014 11:59 PM [facility] Hospital Encounter [facility] CLINCONV Wesley Em MD [address] [place] [id number] Type 2 or unspecified type diabetes mellitus; Disorder of prostate Social History Tobacco Use Types Packs/Day Years Used Date Smoking Tobacco: Former Alcohol Use Standard Drinks/Week Comments No 0 (1 standard drink = 0.6 oz pur e alcohol) Sex and Gender Information Value Date Recorded Sex Assigned at Not on file 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 Gender Identity Not on file Sexual Orientation Straight 01/23/2021 10 :16 PM CDT documented as of this encounter Medications at Time of Discharge aspirin 81 mg tablet Take one by mouth one time per day 0 0 06/27/2008 cloNIDine (CATAPRES) 0.2 mg tablet take 1 tablet (0.2MG) by oral route bid 60 12 08/13/2012 12/26/2016 clopidogrel (PLAVIX) 75 mg tablet TAKE ONE TABLET BY MOUTH EVERY DAY 90 2 10/01/2012 10/11/2017 finasteride (PROSCAR) 5 mg tablet TAKE ONE TABLET BY MOUTH EVERY DAY 90 3 08/11/2011 02/17/2017 tamsulosin (FLOMAX) 0.4 mg capsule,extended release 24hr TAKE ONE CAPSULE BY MOUTH EVERY DAY 90 3 03/11/2008 12/14/2016 documented as of this encounter Plan of Treatment Not on file documented as of this encounter Visit Diagnoses Diagnosis Type 2 or unspecified type diabetes mellitus Disorder of prostate Unspecified disorder of prostate documented in this encounter Care Teams Strip Presser Relationship Specialty Start Date End Date Wesley Em MD PCP - General 10/12/12 08/31/16 documented as of this encounter
--- OUTSIDE RECORDS SUMMARY | 2024-06-18 18:17 | XMS_ITS | Encounter Summary ---
Author Organization [facility] Healthcare Address [address] [place] [address] Care Team Providers Care Cellular Equipment Repairer Name Role Phone Wesley Em MD Primary Care Provider [phone] Encounter Details Date Type Department Care Team (Late st Contact Info) Description 06/11/2015 10:46 AM TUBE DRAWING SUPERVISOR - 06/11/2015 11:59 PM TUBE DRAWING SUPERVISOR Hospital Encounter [facility] Hoskins, Roger Steele MD [address] [place] [id number] Polycythemia vera ([facility]/HCC) Social History Tobacco Use Types Packs/Day Years Used Date Smoking Tobacco: Former Alcohol Use Standard Drinks/Week Comments No 0 (1 standard drink = 0.6 oz pur e alcohol) Sex and Gender Information Value Date Recorded Sex Assigned at Not on file Legal Sex Male 6:00 PM TUBE DRAWING SUPERVISOR Gender Identity Not on file Sexual [...] Name Priority Date/Time Associated Diagnosis Comments BLOOD CELL COUNT (CBC) Routine 06/11/2015 10:58 AM TUBE DRAWING SUPERVISOR DISCHARGE LABORATORY CUMULATIVE REPORT 06/11/2015 documented in this encounter Results * (ABNORMAL) Blood cell count (CBC) (06/11/2015 10:58 AM TUBE DRAWING SUPERVISOR) WBC 6.5 3.8 - 9.8 K/cumm HISTORICAL RESULTS RBC 5.48 4.50 - 5.70 M/cumm HISTORICAL RESULTS Hgb 14.5 13.8 - 17.2 g/dl HISTORICAL RESULTS Hct 43.9 40.7 - 50.3 % HISTORICAL RESULTS MCV 80.1 80.0 - 100.0 fl HISTORICAL RESULTS MCH 26.5(L) 26.7 - 33.7 pg HISTORICAL RESULTS MCHC 33.0 32.7 - 36.0 g/dl HISTORICAL RESULTS Platelets 214 140 - 440 K/cumm HISTORICAL RESULTS MPV 10.7 8.0 - 12.0 fl HISTORICAL RESULTS Neutrophils, abs 4.5 1.6 - 7.0 K/cumm HISTORICAL RESULTS Blood specimen (specimen) 06/11/2015 10:58 AM TUBE DRAWING SUPERVISOR us Historical Provider LAB BLOOD ORDERABLES Iwona l Result HISTORICAL RESULTS * DISCHARGE LABORATORY CUMULATIVE REPORT (06/11/2015) Narrative 06/11/2015 Ordered by an unspecified provider. us Historical Provider LAB BLOOD ORDERABLES Iwona l Result documented in this encounter Visit Diagnoses Diagnosis Polycythemia vera (HCC) documented in this encounter Care Teams Cellular Equipment Repairer Relationship Specialty Start Date End Date Wesley Em MD PCP - General 10/12/12 08/31/16 documented as of this encounter
--- OUTSIDE RECORDS SUMMARY | 2024-06-18 18:17 | XMS_ITS | Encounter Summary ---
Author Organization [facility] Healthcare Address [address] [place] [address] Care Team Providers Care Commercial Real Estate Agent Name Role Phone Wesley Em MD Primary Care Provider [phone] Encounter Details Date Type Department Care Team (Late st Contact Info) Description 07/14/2014 10:49 AM EP TECH - 07/14/2014 11:59 PM EP TECH Hospital Encounter [facility] Colindres, Sparkle Steele MD [address] [place] [phone] Polycythemia vera (HCC) Social History Tobacco Use Types Packs/Day Years Used Date Smoking Tobacco: Former Alcohol Use Standard Drinks/Week Comments No 0 (1 standard drink = 0.6 oz pur e alcohol) Sex and Gender Information Value Date Recorded Sex Assigned at Not on file Legal Sex Male 6:00 PM EP TECH Gender Identity Not on file Sexual Orientation [...] Procedure Name Priority Date/Time Associated Diagnosis Comments SERUM BASIC METABOLIC PANEL Routine 07/14/2014 11:05 AM EP TECH BLOOD CELL COUNT (CBC) Routine 07/14/2014 11:05 AM EP TECH DISCHARGE LABORATORY CUMULATIVE REPORT Routine 07/14/2014 12:00 AM EP TECH documented in this encounter Results * (ABNORMAL) Serum basic metabolic panel (07/14/2014 11:05 AM EP TECH) BUN 16.0 6.0 - 23.0 mg/dl HISTORICAL RESULTS Sodium 136 134 - 143 mmol/L HISTORICAL RESULTS Potassium, sr 3.3(L) 3.4 - 5.0 mmol/L HISTORICAL RESULTS Chloride 101 99 - 108 mmol/L HISTORICAL RESULTS CO2 27 23 - 32 mmol/L HISTORICAL RESULTS Glucose 136 70 - 199 mg/dl HISTORICAL RESULTS Comment: Note:The glucose is assumed non fasting Fastin-99 mg/dl Random: 70-199 mg/dl Either a fasting glucose > 126 mg/dL or a random glucose > 200 mg/dL plus symptoms is diagnostic of diabetes when confirmed on another day. Fasting values > 100 mg/dl but < 125 mg/dL are diagnostic of impaired fasting glucose. New reference ranges implemented 05/13/2013. Creatinine 1.05 0.60 - 1.30 mg/dl HISTORICAL RESULTS Comment: eGFR: >70 ml/min/1.73sq.m if non -[place]. eGFR: >70 ml/min/1.73sq.m if -[place]atemalan. AVE GFR for 60-69 yr. age group: ??85 ml/min/173sq.m Calculated using MDRD Equation BUN/creat ratio 15 10 - 20 HIST ORICAL RESULTS A. gap 11 7 - 14 mmol/L HISTORICAL RESULTS Osmo, calc 275(L) 280 - 301 mOsm/kg HISTORICAL RESULTS Calcium 9.1 8.6 - 9.8 mg/dl HISTORICAL RESULTS Serum 07/14/2014 11:0 5 AM EP TECH Sparkle Colindres MD LAB BLOOD ORDERABLES Ziggy dunham Result Performing Organization Address [facility] Co de Phone Number HISTORICAL RESULTS * (ABNORMAL) Blood cell count (CBC) (07/14/2014 11:05 AM EP TECH) Pathologist [facility] WBC 7.0 4.5 - 10.6 K/cumm HISTORICAL RESULTS Hct 45.5 35.0 - 60.0 % HISTORICAL RESULTS RBC 5.45 4.00 - 6.01 M/cumm HISTORICAL RESULTS MCV 83.5 80.0 - 100.0 fl HISTORICAL RESULTS Hgb 14.4 11.0 - 18.1 g/dl HISTORICAL RESULTS MCH 26.4(L) 27.0 - 31.0 pg HISTORICAL RESULTS MCHC 31.6(L) 33.0 - 37.0 g/dl HISTORICAL RESULTS Rdw 15.0(H) 11.5 - 14.6 % HISTORICAL RESULTS Platelets 241 150 - 400 K/cumm HISTORICAL RESULTS MPV 8.0 7.4 - 10.4 fl HISTORICAL RESULTS Lymphocytes 21.2 20.0 - 50.0 % HISTORICAL RESULTS Monos 9.1 1.0 - 13.0 % HISTORICAL RESULTS Neutrophils 69.7 30.0 - 70.0 % HISTORICAL RESULTS Lymphocytes, abs 1.5 0.9 - 5.3 K/cumm HISTORICAL RESULTS Monocytes, absolute 0.6 0.1 - 1.1 K/cumm HISTORICAL RESULTS Neutrophils, abs 4.9 1.3 - 7.4 K/cumm HISTORICAL RESULTS Blood specimen (specimen) 07/14/2014 11:05 AM EP TECH Sparkle Colindres MD LAB BLOOD ORDERABLES Fin charla Result HISTORICAL RESULTS * Discharge Laboratory Cumulative Report (07/14/2014 12:00 AM EP TECH) 07/14/2014 Narrative HISTORICAL RESULTS - 09/14/2014 2:43 AM CDT Patient No: [id number] ? [facility] Patient Name: VILLA ALSTON ?[facility] Healthcare Age: 68 YRS ?: 1945 ?Sex:M ?[address] )[id number] ?? Adm Dt: 07/14/2014 ?[place], [place] ??[id number] Created: 09/14/2014 ??0243 ?? Pt. Type: D ? Discharge Dt: 07/14/2014 ? Pathologists: Brooklyn Ortiz MD Admit Attend Dr: SPARKLE COLINDRES MD ? BLOOD CELL COUNTS ?Collection Date: ?07/14/14 ?Collection Time: ?1105 ? Ref Range: ?? Units: [4.50-10.60] /CMM ? WBC X 10^3 ?7.00 [4.00-6.01] ??/CMM ? RBC X 10^6 ?5.45 [11.0-18.1] ??G/DL ? HGB ? 14.4 [35.0-60.0] ??% ?HCT ? 45.5 [80.0-100.0] FL ? MCV ? 83.5 [27.0-31.0] ??PG ? MCH ? 26.4 L [33.0-37.0] ??% ?MCHC ?31.6 L [11.5-14.6] ??% ?RDW ? 15.0 H [150-400] ?? /CMM ? PLT X 10^3 ? 241 [7.4-10.4] ??FL ? MPV ?8.0 [20.0-50.0] ??% ?LYMPH PERCENT ? 21.2 [1.0-13.0] ??% ?MONO PERCENT ? 9.1 [30.0-70.0] ??% ?GRANULOCYE % ?69.7 [0.9-5.3] ?? /CMM ? A LYMPH ?1.5 [1.3-7.4] ?? /CMM ? A GRANULOCYTE ?4.9 [0.1-1.1] ?? /CMM ? A MONO ? 0.6 ? GENERAL CHEMISTRY ?Collection Date: ?07/14/14 ?Collection Time: ?1105 ? Ref Range: ?? Units: [134-143] ?? MMOL/L ? SODIUM ? 136 [3.4-5.0] ?? MMOL/L ? POTASSIUM ?3.3 L [99.0-108.0] MMOL/L ? CHLORIDE ? 101.0 [23.0-32.0] ??MMOL/L ? TOTAL CO2 ? 27.4 ?? [7-14] ?MMOL/L ? ANION GAP ? 11 Footnotes and Symbols: L = Low, H = High ?? CONTINUED ?Page: ?? 1 Patient No: [id number] ? [facility] Patient Name: VILLA ALSTON ?[facility] Age: 68 YRS ?: 1945 ?Sex:M ?[address] )[id number] ?? Adm Dt: 07/14/2014 ?[place], [place] ??[id number] Created: 09/14/2014 ??0243 ?? Pt. Type: D ? Discharge Dt: 07/14/2014 ? Pathologists: Brooklyn Ortiz MD Admit Attend Dr: SPARKLE COLINDRES MD ? GENERAL CHEMISTRY ?Collection Date: ?07/14/14 ?Collection Time: ?1105 ? Ref Range: ?? Units: ??[70-199] ?? MG/DL ?GLUCOSE ?136 f [280-301] ?? MOSM/K ? CALCULATED OSMO ?275 L [8.6-9.8] ?? MG/DL ?CALCIUM ?9.1 [6.0-23.0] ??MG/DL ?BUN ? 16.0 ??[10-20] ? B/C RATIO ? 15 [0.60-1.30] ??MG/DL ?CREATININE ?1.05 f ?07/14/145 eGFR: >70 ml/min/1.73sq.m if non -[place]. eGFR: >70 ml/min/1.73sq.m if -[place]atemalan. AVE GFR for 60-69 yr. age group: ??85 ml/min/173sq.m Calculated using MDRD Equation FOOTNOTE ADDED ON ?? 07/14/14 ?? AT 1330 BY 999 Footnotes and Symbols: L = Low, f = Footnote GLUCOSE (06/04/13 -- 08/12/14) Note:The glucose is assumed non fasting Fastin-99 mg/dl Random: 70-199 mg/dl Either a fasting glucose > 126 mg/dL or a random glucose > 200 mg/dL plus symptoms is diagnostic of diabetes when confirmed on another day. Fasting values > 100 mg/dl but < 125 mg/dL are diagnostic of impaired fasting glucose. New reference ranges implemented 05/13/2013. ?? END OF CHART ? Page: ?? 2 us Historical Provider LAB BLOOD ORDERABLES Iwona mackay Result HISTORICAL RESULTS documented in this encounter Visit Diagnoses Diagnosis Polycythemia vera (HCC) documented in this encounter Care Teams Commercial Real Estate Agent Relationship Specialty Start Date End Date Wesley Em MD PCP - General 10/12/12 08/31/16 documented as of this encounter
--- OUTSIDE RECORDS SUMMARY | 2024-06-18 18:17 | XMS_ITS | Encounter Summary ---
Author Organization [facility] Healthcare Address [address] [place] [address] Care Team Providers Care Permit Specialist Name Role Phone Wesley Em MD Primary Care Provider [phone] Encounter Details Date Type Department Care Team (Late st Contact Info) Description 09/08/2014 2:31 PM CDT - 09/08/2014 11:59 PM CDT Hospital Encounter [facility] CLINCONV Wesley Em MD [address] [place] [address] Microscopic hematuria Social History Tobacco Use Types Packs/Day Years Used Date Smoking Tobacco: Former Alcohol Use Standard Drinks/Week Comments No 0 (1 standard drink = 0.6 oz pur e alcohol) Sex and Gender Information Value Date Recorded Sex Assigned at Not on file 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 Rec#: ?? [id number] ?Pt. Acct.#: ??[id number] ?Birthdate: ?? 1945 ?Age / Sex: ?? 68Y / M ?Location: ?[facility] (Laborato ?Admit Date: ??09/06/2014 ?Discharge Date: ? 09/06/2014 ?Doctor: ?Patient Type: ?CH Ref Lab - Insuran Culture, Urine ? Collected: 09/08/2014 07:46 Specimen: Urine ?? Specimen Source: Clean Voided Specimen Status: Final ??Last Update: 09/12/2014 12:06 Organism ?? Greater than 100,000 cfu/ml of ?? Morganella morganii ?$$'s REPRESENT ?- ?IN-PATIENT COST ? - ?- ?Ampicillin ? $$ >16 ?R ?Aztreonam ?$$$$ <=2 ?S ?Cefazolin ? $ >16 ?R ?Ceftriaxone ? $ <=1 ?S ?Cefepime ? $$ <=1 ?S ?Gentamicin ?$ <=2 ?S ?Tobramycin ?$ <=2 ?S ?Tetracycline ?$ <=2 ?R ?Ciprofloxacin ? $ <=0.5 ?S ?Nitrofurantoin ?$ >64 ?R ?Trimeth/Sulfa ? $ ?S ? <=0.5/9.5 ?Amoxicillin/Clav ??$ >16/8 ?R ?Pip/Tazo ?$$$ <=2/4 ?S Organism ?? 10,000 - 50,000 cfu/ml of ?? Escherichia coli ?$$'s REPRESENT ?- ?IN-PATIENT COST ? - ?- ?Ampicillin ? $$ >16 ??R ?Cefazolin ? $ 2 ?S ?Gentamicin ?$ <=2 ??S ?Tobramycin ?$ <=2 ??S ?Tetracycline ?$ >8 ?? R ?Ciprofloxacin ? $ >2 ?? R ?Levofloxacin ? $$ 4 ?I ?Nitrofurantoin ?$ <=16 S ?Trimeth/Sulfa ? $ ?R ? >2/38 ?Amoxicillin/Clav ??$ 8/4 ??S Organism ?? Less than 10,000 cfu/ml of ?? Gram negative bacilli Organism ?? Greater than 100,000 cfu/ml of ?? Enterococcus faecalis ?$$'s REPRESENT ?- ?IN-PATIENT COST ? - ?- ?Ampicillin ?1 ?S ?? $$ ?Levofloxacin ?<=1 ??S ?? $$ ?Nitrofurantoin ?<=16 S ? $ ?Penicillin ?4 ?S ?? $$ ?Tetracycline ? S ? $ ? <=0.5 ?Vancomycin ?2 ?S ?? $$ us Historical Provider MD LAB MICROBIOLOGY - GENERA L ORDERABLES Final Result HISTORICAL RESULTS documented in this encounter Visit Diagnoses Diagnosis Microscopic hematuria documented in this encounter Care Teams Permit Specialist Relationship Specialty Start Date End Date Wesley Em MD PCP - General 10/12/12 08/31/16 documented as of this encounter
--- OUTSIDE RECORDS SUMMARY | 2024-06-18 18:17 | XMS_ITS | Encounter Summary ---
Author Organization [facility] Healthcare Address [address] [place] [address] Care Team Providers Care Assistant Boiler Operator Name Role Phone Wesley Em MD Primary Care Provider [phone] Encounter Details Date Type Department Care Team (Late st Contact Info) Description 09/03/2015 10:26 AM PROCESS PUMPER - 09/03/2015 11:59 PM PROCESS PUMPER Hospital Encounter [facility] Hoskins, Roger Steele MD [address] [place] [id number] Polycythemia vera ([facility]) Social History Tobacco Use Types Packs/Day Years Used Date Smoking Tobacco: Former Alcohol Use Standard Drinks/Week Comments No 0 (1 standard drink = 0.6 oz pur e alcohol) Sex and Gender Information Value Date Recorded Sex Assigned at Not on file Legal Sex Male 6:00 PM PROCESS 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 Gender Identity Not on file Sexual Orientation [...] Diagnosis Comments BLOOD CELL COUNT (CBC) Routine 01/07/2016 11:50 AM CDT SERUM ESTIMATED GLOMERULAR FILTRATION RATE Routine 01/07/2016 11:50 AM CDT PLASMA BASIC METABOLIC PANEL Routine 01/07/2016 11:50 AM CDT SERUM ESTIMATED GLOMERULAR FILTRATION RATE Routine 10/01/2015 10:40 AM CDT PLASMA BASIC METABOLIC PANEL Routine 10/01/2015 5:40 AM CDT BLOOD CELL COUNT (CBC) Routine 10/01/2015 5:35 AM CDT SERUM ESTIMATED GLOMERULAR FILTRATION RATE Routine 09/03/2015 10:50 AM PROCESS PUMPER PLASMA BASIC METABOLIC PANEL Routine 09/03/2015 4:50 AM PROCESS PUMPER BLOOD CELL COUNT (CBC) Routine 09/03/2015 4:30 AM PROCESS PUMPER documented in this encounter Results * Blood cell count (CBC) (01/07/2016 11:50 AM CDT) WBC 5.4 3.8 - 9.8 K/cumm HISTORICAL RESULTS RBC 5.07 4.50 - 5.70 M/cumm HISTORICAL RESULTS Hgb 14.4 13.8 - 17.2 g/dl HISTORICAL RESULTS Hct 42.5 40.7 - 50.3 % HISTORICAL RESULTS MCV 83.8 80.0 - 100.0 fl HISTORICAL RESULTS MCH 28.4 26.7 - 33.7 pg HISTORICAL RESULTS MCHC 33.9 32.7 - 36.0 g/dl HISTORICAL RESULTS Platelets 179 140 - 440 K/cumm HISTORICAL RESULTS MPV 10.4 8.0 - 12.0 fl HISTORICAL RESULTS Neutrophils, abs 3.2 1.6 - 7.0 K/cumm HISTORICAL RESULTS Blood specimen (specimen) 01/07/2016 11:50 AM CDT Historical Provider LAB BLOOD ORDERABLES Iwona mackay Result Performing Organization Address City/[facility] Co de Phone Number HISTORICAL RESULTS * Plasma basic metabolic panel (01/07/2016 11:50 AM CDT) Sodium 143 135 - 145 mmol/L HISTORICAL RESULTS K, pl 3.7 3.5 - 5.1 mmol/L HISTORICAL RESULTS Chloride 106 97 - 110 mmol/L HISTORICAL RESULTS CO2 27 22 - 32 mmol/L HISTORICAL RESULTS A. gap 14 8 - 16 mmol/L HISTORICAL RESULTS Glucose 115 70 - 199 mg/dl HISTORICAL RESULTS Comment: Interpretive Data Note:The glucose is assumed non fasting Fastin-99 mg/dL Random: ??70-199 mg/dL Either a fasting glucose > 126 mg/dL or a random glucose > 200 mg/dL plus symptoms is diagnostic of diabetes when confirmed on another day. Fasting values > 100 mg/dL but < 125 mg/dL are diagnostic of impaired fasting glucose. Current interpretive data was last revised on 2014. BUN 17.4 8.0 - 25.0 mg/dl HISTORICAL RESULTS Creatinine 1.02 0.70 - 1.30 mg/dl HISTORICAL RESULTS Calcium 8.9 8.6 - 10.2 mg/dl HISTORICAL RESULTS BUN/creat ratio 17 10 - 20 HIST ORICAL RESULTS Plasma 01/07/2016 11:5 0 AM CDT us Historical Provider LAB BLOOD ORDERABLES Iwona mackay Result HISTORICAL RESULTS * Serum estimated glomerular filtration rate (01/07/2016 11:50 AM CDT) eGFR >60 ml/min/1.7 3 m2 HISTORICAL RESULTS Comment: Interpretation of Estimated GFR (eGFR): Normal ?>/= 60 mL/min/1.73m2 Possible Chronic Kidney Disease ??15 - 59 mL/min/1.73m2 Possible Kidney Failure ?< 15 ??mL/min/1.73m2 If -Wallisian multiply value by 1.16. ??Estimated glomerular filtration rate is determined by the CKD-EPI equation recommended by the National Kidney Foundation (KDIGO 2012 Clinical Practice Guideline for the Evaluation and Management of Chronic Kidney Disease. ??Kidney Intnl Suppl Jul 2012;3:1). ??The CKD-EPI equation should not be used in acute renal failure or acute kidney injury and is not valid in children. Serum 01/07/2016 11:5 0 AM CDT Historical Provider LAB BLOOD ORDERABLES Iwona l Result Performing Organization Address City/[facility] de Phone Number HISTORICAL RESULTS * Serum estimated glomerular filtration rate (10/01/2015 10:40 AM CDT) eGFR 46 ml/min/1.7 3 m2 HISTORICAL RESULTS Comment: Interpretation of Estimated GFR (eGFR): Normal ?>/= 60 mL/min/1.73m2 Possible Chronic Kidney Disease ??15 - 59 mL/min/1.73m2 Possible Kidney Failure ?< 15 ??mL/min/1.73m2 If -Wallisian multiply value by 1.16. ??Estimated glomerular filtration rate is determined by the CKD-EPI equation recommended by the National Kidney Foundation (KDIGO 2012 Clinical Practice Guideline for the Evaluation and Management of Chronic Kidney Disease. ??Kidney Intnl Suppl Jul 2012;3:1). ??The CKD-EPI equation should not be used in acute renal failure or acute kidney injury and is not valid in children. Serum 10/01/2015 10:4 0 AM CDT Historical Provider LAB BLOOD ORDERABLES Iwona l Result Performing Organization Address City/[facility] de Phone Number HISTORICAL RESULTS * (ABNORMAL) Plasma basic metabolic panel (10/01/2015 5:40 AM CDT) Sodium 140 135 - 145 mmol/L HISTORICAL RESULTS K, pl 4.2 3.5 - 5.1 mmol/L HISTORICAL RESULTS Chloride 103 97 - 110 mmol/L HISTORICAL RESULTS CO2 22 22 - 32 mmol/L HISTORICAL RESULTS A. gap 19(H) 8 - 16 mmol/L HISTORICAL RESULTS Glucose 126 70 - 199 mg/dl HISTORICAL RESULTS Comment: Interpretive Data Note:The glucose is assumed non fasting Fastin-99 mg/dL Random: ??70-199 mg/dL Either a fasting glucose > 126 mg/dL or a random glucose > 200 mg/dL plus symptoms is diagnostic of diabetes when confirmed on another day. Fasting values > 100 mg/dL but < 125 mg/dL are diagnostic of impaired fasting glucose. Current interpretive data was last revised on 2014. BUN 27.2(H) 8.0 - 25.0 mg/dl HISTORICAL RESULTS Creatinine 1.52(H) 0.70 - 1.30 mg/dl HISTORICAL RESULTS Calcium 9.2 8.6 - 10.2 mg/dl HISTORICAL RESULTS BUN/creat ratio 18 10 - 20 HIST ORICAL RESULTS Plasma 10/01/2015 5:40 AM CDT Narrative HISTORICAL RESULTS - 10/01/2015 7:25 AM CDT 1 [place] us Historical Provider LAB BLOOD ORDERABLES Iwona l Result Performing Organization Address [facility] de Phone Number HISTORICAL RESULTS * (ABNORMAL) Blood cell count (CBC) (10/01/2015 5:35 AM CDT) WBC 7.1 3.8 - 9.8 K/cumm HISTORICAL RESULTS RBC 3.69(L) 4.50 - 5.70 M/cumm HISTORICAL RESULTS Hgb 10.2(L) 13.8 - 17.2 g/dl HISTORICAL RESULTS Hct 30.9(L) 40.7 - 50.3 % HISTORICAL RESULTS MCV 83.7 80.0 - 100.0 fl HISTORICAL RESULTS MCH 27.6 26.7 - 33.7 pg HISTORICAL RESULTS MCHC 33.0 32.7 - 36.0 g/dl HISTORICAL RESULTS Platelets 139(L) 140 - 440 K/cumm HISTORICAL RESULTS MPV 10.2 8.0 - 12.0 fl HISTORICAL RESULTS Neutrophils, abs 4.8 1.6 - 7.0 K/cumm HISTORICAL RESULTS Blood specimen (specimen) 10/01/2015 5:35 AM CDT Narrative HISTORICAL RESULTS - 10/01/2015 5:41 AM CDT 1 [place] Historical Provider LAB BLOOD ORDERABLES Iwona mackay Result Performing Organization Address [facility] de Phone Number HISTORICAL RESULTS * Serum estimated glomerular filtration rate (09/03/2015 10:50 AM PROCESS PUMPER) eGFR >60 ml/min/1.7 3 m2 HISTORICAL RESULTS Comment: Interpretation of Estimated GFR (eGFR): Normal ?>/= 60 mL/min/1.73m2 Possible Chronic Kidney Disease ??15 - 59 mL/min/1.73m2 Possible Kidney Failure ?< 15 ??mL/min/1.73m2 If -Wallisian multiply value by 1.16. ??Estimated glomerular filtration rate is determined by the CKD-EPI equation recommended by the National Kidney Foundation (KDIGO 2012 Clinical Practice Guideline for the Evaluation and Management of Chronic Kidney Disease. ??Kidney Intnl Suppl Jul 2012;3:1). ??The CKD-EPI equation should not be used in acute renal failure or acute kidney injury and is not valid in children. Serum 09/03/2015 10:5 0 AM PROCESS PUMPER Historical Provider LAB BLOOD ORDERABLES Iwona l Result Performing Organization Address [facility] de Phone Number HISTORICAL RESULTS * (ABNORMAL) Plasma basic metabolic panel (09/03/2015 4:50 AM PROCESS PUMPER) Sodium 142 135 - 145 mmol/L HISTORICAL RESULTS K, pl 3.9 3.5 - 5.1 mmol/L HISTORICAL RESULTS Chloride 102 97 - 110 mmol/L HISTORICAL RESULTS CO2 25 22 - 32 mmol/L HISTORICAL RESULTS A. gap 19(H) 8 - 16 mmol/L HISTORICAL RESULTS Glucose 119 70 - 199 mg/dl HISTORICAL RESULTS Comment: Interpretive Data Note:The glucose is assumed non fasting Fastin-99 mg/dL Random: ??70-199 mg/dL Either a fasting glucose > 126 mg/dL or a random glucose > 200 mg/dL plus symptoms is diagnostic of diabetes when confirmed on another day. Fasting values > 100 mg/dL but < 125 mg/dL are diagnostic of impaired fasting glucose. Current interpretive data was last revised on 2014. BUN 16.4 8.0 - 25.0 mg/dl HISTORICAL RESULTS Creatinine 1.08 0.70 - 1.30 mg/dl HISTORICAL RESULTS Calcium 9.4 8.6 - 10.2 mg/dl HISTORICAL RESULTS BUN/creat ratio 15 10 - 20 HIST ORICAL RESULTS Plasma 09/03/2015 4:50 AM PROCESS PUMPER Narrative HISTORICAL RESULTS - 09/03/2015 6:16 AM PROCESS PUMPER 3 [place] us Historical Provider LAB BLOOD ORDERABLES Iwona l Result HISTORICAL RESULTS * Blood cell count (CBC) (09/03/2015 4:30 AM PROCESS PUMPER) WBC 5.7 3.8 - 9.8 K/cumm HISTORICAL RESULTS RBC 5.51 4.50 - 5.70 M/cumm HISTORICAL RESULTS Hgb 15.0 13.8 - 17.2 g/dl HISTORICAL RESULTS Hct 45.0 40.7 - 50.3 % HISTORICAL RESULTS MCV 81.7 80.0 - 100.0 fl HISTORICAL RESULTS MCH 27.2 26.7 - 33.7 pg HISTORICAL RESULTS MCHC 33.3 32.7 - 36.0 g/dl HISTORICAL RESULTS Platelets 192 140 - 440 K/cumm HISTORICAL RESULTS MPV 10.5 8.0 - 12.0 fl HISTORICAL RESULTS Neutrophils, abs 3.4 1.6 - 7.0 K/cumm HISTORICAL RESULTS Blood specimen (specimen) 09/03/2015 4:30 AM PROCESS PUMPER Narrative HISTORICAL RESULTS - 09/03/2015 4:40 AM PROCESS PUMPER 3 [place] us Historical Provider LAB BLOOD ORDERABLES Iwona l Result HISTORICAL RESULTS documented in this encounter Visit Diagnoses Diagnosis Polycythemia vera (HCC) documented in this encounter Care Teams Assistant Boiler Operator Relationship Specialty Start Date End Date Wesley Em MD PCP - General 10/12/12 08/31/16 documented as of this encounter
--- OUTSIDE RECORDS SUMMARY | 2024-06-18 18:17 | XMS_ITS | Encounter Summary ---
Author Organization [facility] Healthcare Address [address] [place] [address] Care Team Providers Care Geographic Analyst Name Role Phone Wesley Em MD Primary Care Provider [phone] Encounter Details Date Type Department Care Team (Late st Contact Info) Description 03/11/2015 9:51 AM CDT - 03/11/2015 11:59 PM CDT Hospital Encounter [facility] Hoskins, Roger Steele MD [address] [place] [phone] Polycythemia vera (CMS/HCC) Social History Tobacco Use Types Packs/Day Years Used Date Smoking Tobacco: Former Alcohol Use Standard Drinks/Week Comments No 0 (1 standard drink = 0.6 oz pur e alcohol) Sex and Gender Information Value Date Recorded Sex Assigned at Not on file 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 Gender Identity Not on file Sexual [...] Diagnosis Comments BLOOD CELL COUNT (CBC) Routine 03/11/2015 10:10 AM CDT DISCHARGE LABORATORY CUMULATIVE REPORT 03/11/2015 documented in this encounter Results * (ABNORMAL) Blood cell count (CBC) (03/11/2015 10:10 AM CDT) WBC 6.7 3.8 - 9.8 K/cumm HISTORICAL RESULTS RBC 5.60 4.50 - 5.70 M/cumm HISTORICAL RESULTS Hgb 14.4 13.8 - 17.2 g/dl HISTORICAL RESULTS Hct 43.0 40.7 - 50.3 % HISTORICAL RESULTS MCV 76.8(L) 80.0 - 100.0 fl HISTORICAL RESULTS MCH 25.7(L) 26.7 - 33.7 pg HISTORICAL RESULTS MCHC 33.5 32.7 - 36.0 g/dl HISTORICAL RESULTS Platelets 195 140 - 440 K/cumm HISTORICAL RESULTS MPV 10.3 8.0 - 12.0 fl HISTORICAL RESULTS Neutrophils, abs 4.4 1.6 - 7.0 K/cumm HISTORICAL RESULTS Blood specimen (specimen) 03/11/2015 10:10 AM CDT us Historical Provider LAB BLOOD ORDERABLES Iwona l Result HISTORICAL RESULTS * DISCHARGE LABORATORY CUMULATIVE REPORT (03/11/2015) Narrative 03/11/2015 Ordered by an unspecified provider. us Historical Provider LAB BLOOD ORDERABLES Iwona l Result documented in this encounter Visit Diagnoses Diagnosis Polycythemia vera (HCC) documented in this encounter Care Teams Geographic Analyst Relationship Specialty Start Date End Date Wesley Em MD PCP - General 10/12/12 08/31/16 documented as of this encounter
--- OUTSIDE RECORDS SUMMARY | 2024-06-18 18:17 | XMS_ITS | Encounter Summary ---
Author Organization [facility] Healthcare Address [address] [place] [address] Care Team Providers Care Coke Oven Patcher Name Role Phone Gene Em MD Primary Care Provider [phone] Encounter Details Date Type Department Care Team (Late st Contact Info) Description 12/17/2014 7:41 AM CDT - 12/17/2014 11:59 PM CDT Hospital Encounter [facility] Gene Lopez MD [address] [place] [id number] Dementia without behavioral disturbance (HCC) Social History Tobacco Use Types Packs/Day Years Used Date Smoking Tobacco: Former Alcohol Use Standard Drinks/Week Comments No 0 (1 standard drink = 0.6 oz pur e alcohol) Sex and Gender Information Value Date Recorded Sex Assigned at Not on file 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 Acc#: ??[id number] DATE OF EXAM: ??Dec 17 2014 CLINICAL HISTORY: Memory loss. ??Dementia. RESULT: Sagittal FLAIR; axial T1 inversion recovery, T2, FLAIR and diffusion; axial, sagittal and coronal T1 inversion recovery post contrast. ??10 mL OptiMARK utilized intravenously. A lesion is seen in the left frontal lobe inferiorly. ??This measures 3.8 x 2.1 cm. ??This demonstrates low T1 signal with hyperintense T2 and FLAIR signal. ??The appearance supports encephalomalacia. ??There is evidence of volume loss and some prominence of the frontal aspect of the left lateral ventricle. ??There is a linear focus of enhancement within the posterior aspect of the lesion, which is thought to most likely represent a vascular structure. ??Given the appearance of encephalomalacia with volume loss, this is thought to be due to prior insult, likely infarction. ??The small area of enhancement is thought to be vascular in nature. ??This is not thought to represent enhancement associated with malignancy. ??No midline shift is noted. ??Brain stem cisterns are intact. 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 ?? Moderate white matter changes. ??Minimal mucosal thickening in the paranasal sinuses. ??A small enhancing focus is seen contiguous with the right thalamic infarction. ??This has a maximal dimension of approximately 6 mm on the sagittal images. ??On the sagittal images this appears linear. ??Question venous angioma. IMPRESSION: 1. 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 2. 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 3. MODERATE WHITE MATTER SMALL VESSEL ISCHEMIC CHANGES. 4. MINIMAL MUCOSAL THICKENING PARANASAL SINUSES, INCIDENTALLY NOTED. 5. SMALL ENHANCING FOCUS CONTIGUOUS WITH THE RIGHT THALAMIC INFARCTION; INDETERMINATE IN NATURE. ??APPEARANCE/FINDINGS RAISE THE POSSIBILITY OF VENOUS ANGIOMA. Interpreting Physician: ??REECE OLVERA M.D. ??Read on: ??Dec 17 2014 ??9:39A Transcribed by: ??lanny ??On: Dec 17 2014 11:48A Approved Electronically by: ??REECE OLVERA M.D. ??on: ??Dec 17 2014 ??1:43P Attending: ??GENE EM Requesting: ??DR GENE EM Requesting Fax: ??-- Attending Fax: ??-- Attending ID: ??[id number] Requesting ID: ??[id number] Report To 1 ID: ??[id number] Report To 1 Name: ??GENE EM Report To 1 FAX: ??-- NextGen Order #: Procedure Note Provider, MD Wilian - 10/22/2016 MRI W BRAIN Acc#: [id number] DATE OF EXAM: Dec 17 2014 CLINICAL HISTORY: Memory loss. Dementia. RESULT: Sagittal FLAIR; axial T1 inversion recovery, T2, FLAIR and diffusion;axial, sagittal and coronal T1 inversion recovery post contrast. 10 mLOptiMARK utilized intravenously. A lesion is seen in the left frontal lobeinferiorly. This measures 3.8 x 2.1 cm. This demonstrates low T1 signalwith hyperintense T2 and FLAIR signal. The appearance supportsencephalomalacia. There is evidence of volume loss and some prominence ofthe frontal aspect of the left lateral ventricle. There is a linear focusof enhancement within the posterior aspect of the lesion, which is thoughtto most likely represent a vascular structure. Given the appearance ofencephalomalacia with volume loss, this is thought to be due to priorinsult, likely infarction. The small area of enhancement is thought to bevascular in nature. This is not thought to represent enhancementassociated with malignancy. No midline shift is noted. Brain stemcisterns are intact. 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 Moderate white matter changes. Minimal mucosal thickening in theparanasal sinuses. A small enhancing focus is seen contiguous with theright thalamic infarction. This has a maximal dimension of approximately6 mm on the sagittal images. On the sagittal images this appears linear.Question venous angioma. IMPRESSION: 1. LESION LEFT FRONTAL LOBE, FINDINGS MOST CONSISTENT WITHENCEPHALOMALACIA FROM PRIOR INSULT, LIKELY PRIOR INFARCTION, WITH SOMEASSOCIATED VOLUME LOSS. 2. 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 3. MODERATE WHITE MATTER SMALL VESSEL ISCHEMIC CHANGES. 4. MINIMAL MUCOSAL THICKENING PARANASAL SINUSES, INCIDENTALLY NOTED. 5. SMALL ENHANCING FOCUS CONTIGUOUS WITH THE RIGHT THALAMIC INFARCTION;INDETERMINATE IN NATURE. APPEARANCE/FINDINGS RAISE THE POSSIBILITY OFVENOUS ANGIOMA. Interpreting Physician: REECE OLVERA M.D. Read on: Dec 17 2014 9:39A Transcribed by: [email or web address] On: Dec 17 2014 11:48A Approved Electronically by: REECE OLVERA M.D. on: Dec 17 2014 1:43P Attending: GENE EM Requesting: DR GENE EM Requesting Fax: -- Attending Fax: -- Attending ID: [id number] Requesting ID: [id number] Report To 1 ID: [id number] Report To 1 Name: GENE EM Report To 1 FAX: -- NextGen Order #: us Historical Provider MD CUELLAR MRI PROCEDURES Final Result documented in this encounter Visit Diagnoses Diagnosis Dementia without behavioral disturbance (HCC) documented in this encounter Care Teams Coke Oven Patcher Relationship Specialty Start Date End Date Gene Em MD PCP - General 10/12/12 08/31/16 documented as of this encounter
--- OUTSIDE RECORDS SUMMARY | 2024-06-18 18:17 | XMS_ITS | Encounter Summary ---
Author Organization [facility] Healthcare Address [address] [place] [address] Care Team Providers Care Anatomical Embalmer Name Role Phone Gene Em MD Primary Care Provider [phone] Encounter Details Date Type Department Care Team (Late st Contact Info) Description 10/10/2016 8:45 AM CDT - 10/10/2016 11:59 PM CDT Hospital Encounter [facility] OP INTERIM Sanchez Butterfield MD [address] [facility] [address] [address] Discharge Disposition: Discharge to home or self care Social History Tobacco Use Types Packs/Day Years Used Date Smoking Tobacco: Former Alcohol Use Standard Drinks/Week Comments No 0 (1 standard drink = 0.6 oz pur e alcohol) Sex and Gender Information Value Date Recorded Sex Assigned at Not on file 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 GENE EM XR KUB ?[id number] ??Acc#: ??[id number] DATE OF EXAM: ??Oct 10 2016 CLINICAL HISTORY: Urinary stent scheduled for removal today. ??Placed two weeks ago. RESULT: Supine AP view of abdomen and pelvis is compared to exam on 09/26/2016. A double pigtail right ureteral stent is in place. ??The previous left ureteral stent has been removed. ??Pelvic phleboliths and arteriosclerotic calcifications are again observed. ??A calcification to the right of the inferior end of the right ureteral catheter may represent a residual stone fragment in the urinary bladder. ??There is additional more vague opacity projecting over the lower sacrum that could also be stone fragments in the urinary bladder vs material in overlying rectum. ??No right renal or ureteral calcifications are seen, although stool compromises right renal detail. ??Splenic artery calcifications are seen in the left upper quadrant. ??Small linear calcification over the medial portion of the left kidney represents a vascular calcification. ??4.3 cm density bulging the inferior contour of the left renal shadow is compatible with an exophytic cyst seen on previous CT. ??A nonspecific bowel gas pattern is demonstrated. ??Prominent degenerative changes are noted in the thoracolumbar spine at multiple levels. IMPRESSION: 1. ??RIGHT URETERAL STENT IN SATISFACTORY POSITION. 2. ??PREVIOUS LEFT URETERAL STENT NO LONGER PRESENT. 3. ??PROBABLE MULTIPLE RESIDUAL CALCULI/STONE FRAGMENTS IN URINARY BLADDER. 4. ??PELVIC VASCULAR CALCIFICATIONS BILATERALLY. Interpreting Physician: ??DR DAVID CRAIG M.D. ??Read on: ??Oct 10 2016 9:57A Transcribed by: ??ylc ??On: Oct 10 2016 ??3:12P Approved Electronically by: ??RAFA Mcginnis, DR HERNANDEZ ??on: ??Oct 10 2016 11:47P Attending: ??SANCHEZ BUTTERFIELD Requesting: ??DR SANCHEZ BUTTERFIELD Requesting Fax: ??[phone] Attending Fax: ??-- Attending ID: ??[id number] Requesting ID: ??[id number] Report To 1 ID: ??[id number] Report To 1 Name: ??SANCHEZ BUTTERFIELD Report To 1 FAX: ??-- NextGen Order #: ?? Procedure Note Miscellaneous, Notinfile / Provider, MD Wilian - 11/24/2016 CC: DR. GENE EM XR KUB [id number] Acc#: [id number] DATE OF EXAM: Oct 10 2016 CLINICAL HISTORY: Urinary stent scheduled for removal today. Placed two weeks ago. RESULT: Supine AP view of abdomen and pelvis is compared to exam on 09/26/2016. Adouble pigtail right ureteral stent is in place. The previous leftureteral stent has been removed. Pelvic phleboliths and arterioscleroticcalcifications are again observed. A calcification to the right of theinferior end of the right ureteral catheter may represent a residual stonefragment in the urinary bladder. There is additional more vague opacityprojecting over the lower sacrum that could also be stone fragments in theurinary bladder vs material in overlying rectum. No right renal orureteral calcifications are seen, although stool compromises right renaldetail. Splenic artery calcifications are seen in the left upperquadrant. Small linear calcification over the medial portion of the leftkidney represents a vascular calcification. 4.3 cm density bulging theinferior contour of the left renal shadow is compatible with an exophyticcyst seen on previous CT. A nonspecific bowel gas pattern is demonstrated. Prominent degenerative changes are noted in thethoracolumbar spine at multiple levels. IMPRESSION: 1. RIGHT URETERAL STENT IN SATISFACTORY POSITION. 2. PREVIOUS LEFT URETERAL STENT NO LONGER PRESENT. 3. PROBABLE MULTIPLE RESIDUAL CALCULI/STONE FRAGMENTS IN URINARYBLADDER. 4. PELVIC VASCULAR CALCIFICATIONS BILATERALLY. Interpreting Physician: DR DAVID CRAIG M.D. Read on: Oct 10 20169:[id number] Transcribed by: [facility] On: Oct 10 2016 3:12P Approved Electronically by: RAFA Mcginnis, DR HERNANDEZ on: Oct 10 201611:47P Attending: SANCHEZ BUTTERFIELD Requesting: DR SANCHEZ BUTTERFIELD Requesting Attending Fax: -- Attending ID: [id number] Requesting ID: [id number] Report To 1 ID: [id number] Report To 1 Name: SANCHEZ BUTTERFIELD Report To 1 FAX: -- NextGen Order #: us Not In File Miscellaneous IMG XR PROCEDURES Iwona l Result documented in this encounter Visit Diagnoses Not on filedocumented in this encounter Care Teams Anatomical Embalmer Relationship Specialty Start Date End Date Gene Em MD PCP - General 09/30/16 12/01/21 documented as of this encounter
--- OUTSIDE RECORDS SUMMARY | 2024-06-18 18:17 | XMS_ITS | Encounter Summary ---
Author Organization [facility] Healthcare Address [address] [place] [address] Care Team Providers Care Project Administrative Assistant Name Role Phone Wesley Em MD Primary Care Provider [phone] Encounter Details Date Type Department Care Team (Late st Contact Info) Description 09/09/2016 10:26 AM METER AND SERVICE LINE INSPECTOR - 09/09/2016 11:59 PM METER AND SERVICE LINE INSPECTOR Hospital Encounter [facility] INTERIM Wesley Em MD [address] [place] [id number] Discharge Disposition: Discharge to home or self care Social History Tobacco Use Types Packs/Day Years Used Date Smoking Tobacco: Former Alcohol Use Standard Drinks/Week Comments No 0 (1 standard drink = 0.6 oz pur e alcohol) Sex and Gender Information Value Date Recorded Sex Assigned at Not on file Legal Sex Male 6:00 PM METER AND SERVICE LINE INSPECTOR Gender Identity Not on file Sexual [...] on filedocumented in this encounter Care Teams Project Administrative Assistant Relationship Specialty Start Date End Date Wesley Em MD PCP - General 09/01/16 09/29/16 documented as of this encounter
--- OUTSIDE RECORDS SUMMARY | 2024-06-18 18:17 | XMS_ITS | Encounter Summary ---
Author Organization [facility] Healthcare Address [address] [place] [address] Care Team Providers Care Final Block Press Operator Name Role Phone Wesley Em MD Primary Care Provider [phone] Encounter Details Date Type Department Care Team (Late st Contact Info) Description 09/29/2014 8:00 AM CDT - 09/29/2014 11:59 PM CDT Hospital Encounter [facility] Sparkle Corrales MD [address] [place] [address] Polycythemia vera (HCC) Social History Tobacco Use Types Packs/Day Years Used Date Smoking Tobacco: Former Alcohol Use Standard Drinks/Week Comments No 0 (1 standard drink = 0.6 oz pur e alcohol) Sex and Gender Information Value Date Recorded Sex Assigned at Not on file Legal 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 Gender Identity Not on file Sexual [...] Diagnosis Comments BLOOD CELL COUNT (CBC) Routine 09/29/2014 10:45 AM CDT DISCHARGE LABORATORY CUMULATIVE REPORT Routine 09/29/2014 12:00 AM CDT documented in this encounter Results * Blood cell count (CBC) (09/29/2014 10:45 AM CDT) WBC 6.1 4.5 - 10.6 K/cumm HISTORICAL RESULTS RBC 5.09 4.00 - 6.01 M/cumm HISTORICAL RESULTS Hgb 14.3 11.0 - 18.1 g/dl HISTORICAL RESULTS Hct 43.1 35.0 - 60.0 % HISTORICAL RESULTS MCV 84.7 80.0 - 100.0 fl HISTORICAL RESULTS MCH 28.1 27.0 - 31.0 pg HISTORICAL RESULTS MCHC 33.2 33.0 - 37.0 g/dl HISTORICAL RESULTS Rdw 14.0 11.5 - 14.6 % HISTORICAL RESULTS Platelets 204 150 - 400 K/cumm HISTORICAL RESULTS MPV 8.4 7.4 - 10.4 fl HISTORICAL RESULTS Lymphocytes 23.0 20.0 - 50.0 % HISTORICAL RESULTS Monos 11.7 1.0 - 13.0 % HISTORICAL RESULTS Neutrophils 65.3 30.0 - 70.0 % HISTORICAL RESULTS Lymphocytes, abs 1.4 0.9 - 5.3 K/cumm HISTORICAL RESULTS Monocytes, absolute 0.7 0.1 - 1.1 K/cumm HISTORICAL RESULTS Neutrophils, abs 4.0 1.3 - 7.4 K/cumm HISTORICAL RESULTS Blood specimen (specimen) 09/29/2014 10:45 AM CDT us Sparkle Colindres MD LAB BLOOD ORDERABLES Fin al Result HISTORICAL RESULTS * Discharge Laboratory Cumulative Report (09/29/2014 12:00 AM CDT) 09/29/2014 Narrative HISTORICAL RESULTS - 11/30/2014 2:45 AM CDT Patient No: [id number] ? [facility] Patient Name: VILLA ALSTON ?[facility] Age: 69 YRS ?: 1945 ?Sex:M ?[address] )[phone] ?? Adm Dt: 09/29/2014 ?[place], [place] ??[address] Created: 11/30/2014 ??0245 ?? Pt. Type: D ? Discharge Dt: 09/29/2014 ? Pathologists: Brooklyn Ortiz MD Admit Attend Dr: SPARKLE COLINDRES MD ? BLOOD CELL COUNTS ?Collection Date: ?09/29/ ?Collection Time: ?1045 ? Ref Range: ?? Units: [4.50-10.60] /CMM ? WBC X 10^3 ?6.10 [4.00-6.01] ??/CMM ? RBC X 10^6 ?5.09 [11.0-18.1] ??G/DL ? HGB ? 14.3 [35.0-60.0] ??% ?HCT ? 43.1 [80.0-100.0] FL ? MCV ? 84.7 [27.0-31.0] ??PG ? MCH ? 28.1 [33.0-37.0] ??% ?MCHC ?33.2 [150-400] ?? /CMM ? PLT X 10^3 ? 204 [20.0-50.0] ??% ?LYMPH PERCENT ? 23.0 [1.0-13.0] ??% ?MONO PERCENT ?11.7 [30.0-70.0] ??% ?GRANULOCYE % ?65.3 [0.9-5.3] ?? /CMM ? A LYMPH ?1.4 [1.3-7.4] ?? /CMM ? A GRANULOCYTE ?4.0 [0.1-1.1] ?? /CMM ? A MONO ? 0.7 ?? END OF CHART ? Page: ?? 1 us Historical Provider LAB BLOOD ORDERABLES Iwona l Result HISTORICAL RESULTS documented in this encounter Visit Diagnoses Diagnosis Polycythemia vera (HCC) documented in this encounter Care Teams Final Block Press Operator Relationship Specialty Start Date End Date Wesley Em MD PCP - General 10/12/12 08/31/16 documented as of this encounter
--- OUTSIDE RECORDS SUMMARY | 2024-06-18 18:17 | XMS_ITS | Encounter Summary ---
Author Organization [facility] Healthcare Address [address] [place] [address] Care Team Providers Care Petroleum Products District Supervisor Name Role Phone Wesley Em MD Primary Care Provider [phone] Encounter Details Date Type Department Care Team (Late st Contact Info) Description 06/17/2016 2:29 PM LEAD FRONT END DEVELOPER - 06/17/2016 11:59 PM LEAD FRONT END DEVELOPER Hospital Encounter [facility]INCONV Wesley Em MD [address] [place] [address] Dysphagia Social History Tobacco Use Types Packs/Day Years Used Date Smoking Tobacco: Former Alcohol Use Standard Drinks/Week Comments No 0 (1 standard drink = 0.6 oz pur e alcohol) Sex and Gender Information Value Date Recorded Sex Assigned at Not on file Legal Sex Male 6:00 PM LEAD FRONT END DEVELOPER Gender Identity Not on file Sexual [...] Name Priority Date/Time Associated Diagnosis Comments SERUM MAGNESIUM Routine 06/17/2016 2:20 PM LEAD FRONT END DEVELOPER SERUM HEPATITIS C AB Routine 06/17/2016 2:20 PM LEAD FRONT END DEVELOPER SERUM ESTIMATED GLOMERULAR FILTRATION RATE Routine 06/17/2016 2:20 PM LEAD FRONT END DEVELOPER PLASMA BASIC METABOLIC PANEL Routine 06/17/2016 2:20 PM LEAD FRONT END DEVELOPER DISCHARGE LABORATORY CUMULATIVE REPORT 06/17/2016 documented in this encounter Results * Plasma basic metabolic panel (06/17/2016 2:20 PM LEAD FRONT END DEVELOPER) Sodium 139 135 - 145 mmol/L CDR HISTORICAL RESULTS K, pl 4.1 3.5 - 5.1 mmol/L CDR HISTORICAL RESULTS Chloride 104 100 - 114 mmol/L CDR HISTORICAL RESULTS CO2 28 22 - 32 mmol/L CDR HISTORICAL RESULTS BUN 15 8 - 24 mg/dl CDR HISTORICAL RESULTS Glucose 153 70 - 199 mg/dl CDR HISTORICAL RESULTS Creatinine 1.32 0.70 - 1.40 mg/dl CDR HISTORICAL RESULTS Calcium 9.2 8.4 - 10.5 mg/dl CDR HISTORICAL RESULTS A. gap 11 8 - 16 mmol/L CDR HISTORICAL RESULTS Plasma 06/17/2016 2:20 PM LEAD FRONT END DEVELOPER us Wesley Em MD LAB BLOOD ORDERABLES Final Res ult CDR HISTORICAL RESULTS * Serum Hepatitis C ab (06/17/2016 2:20 PM LEAD FRONT END DEVELOPER) Pathologist [facility] HCV ab Negative Negative CDR HISTOR ICAL RESULTS Serum 06/17/2016 2:20 PM LEAD FRONT END DEVELOPER Wesley Em MD LAB BLOOD ORDERABLES Final Res ult Performing Organization Address [facility] Co de Phone Number CDR HISTORICAL RESULTS * Serum magnesium (06/17/2016 2:20 PM LEAD FRONT END DEVELOPER) [facility] Magnesium 1.9 1.8 - 2.6 mg/dl CDR HISTORICAL RESULTS Serum 06/17/2016 2:20 PM LEAD FRONT END DEVELOPER Wesley Em MD LAB BLOOD ORDERABLES Final Res ult Performing Organization Address [facility] de Phone Number CDR HISTORICAL RESULTS * Serum estimated glomerular filtration rate (06/17/2016 2:20 PM LEAD FRONT END DEVELOPER) [facility] eGFR 55 ml/min/1.7 3 m2 CDR HISTORICAL RESULTS Comment: Interpretive Data Reference Interval Normal ?>/= 90 mL/min/1.73m2 Mildly decreased* ? 60 - 89 mL/min/1.73m2 Mildly to moderately decreased ?45 - 59 mL/min/1.73m2 Moderately to severely decreased ??30 - 44 mL/min/1.73m2 Severely decreased ?15 - 29 mL/min/1.73m2 Kidney Failure ?< 15 ??mL/min/1.73m2 *Relative to young adult level If -Malagasy multiply value by 1.16. Estimated glomerular filtration [...] Current interpretive data was last reviewed 2016. Serum 06/17/2016 2:20 PM LEAD FRONT END DEVELOPER Wesley Em MD LAB BLOOD ORDERABLES Final Res ult CDR HISTORICAL RESULTS * DISCHARGE LABORATORY CUMULATIVE REPORT (06/17/2016) Narrative 06/17/2016 Ordered by an unspecified provider. us Historical Provider LAB BLOOD ORDERABLES Iwona l Result documented in this encounter Visit Diagnoses Diagnosis Dysphagia documented in this encounter Care Teams Petroleum Products District Supervisor Relationship Specialty Start Date End Date Wesley Em MD PCP - General 10/12/12 08/31/16 documented as of this encounter
--- OUTSIDE RECORDS SUMMARY | 2024-06-18 18:17 | XMS_ITS | Encounter Summary ---
Author Organization [facility] Healthcare Address [address] [place] [address] Care Team Providers Care Excelsior Machine Feeder Name Role Phone Wesley Em MD Primary Care Provider [phone] Encounter Details Date Type Department Care Team (Latest Contact Info) Description 09/28/2016 7:15 AM CDT - 09/28/2016 12:58 PM CDT Hospital Encounter [facility] Operating Room [address] [place] [address] Discharge Disposition: Discharge to home or self care Social History Tobacco Use Types Packs/Day Years Used Date Smoking Tobacco: Former Alcohol Use Standard Drinks/Week Comments No 0 (1 standard drink = 0.6 oz pur e alcohol) Sex and Gender Information Value Date Recorded Sex Assigned at Not on file 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 Admit Date: 09/28/2016 Surg.: Sanchez Butterfield M.D. Disch. Date: 09/28/2016 SURGEON Sanchez Butterfield M.D. PREOPERATIVE DIAGNOSIS Right nephrolithiasis. POSTOPERATIVE DIAGNOSIS Right nephrolithiasis. PROCEDURES 1. Cystoscopy, right retrograde pyelogram, right ureteral stent exchange. 2. Right ureteroscopy with holmium laser lithotripsy and basket extraction of stone fragments. 3. Left stent removal. ANESTHESIA General. COMPLICATIONS None. ESTIMATED BLOOD LOSS Less than 5 mL. SPECIMEN Stone for analysis. INDICATIONS Mr. Alston is a pleasant gentleman who recently underwent treatment for a left ureteral stone. He had bilateral stents placed at that time. He also has a large right UPJ stone. After discussion of treatment risks and benefits, he has agreed to the above-mentioned procedure. Informed consent obtained. Questions answered to his satisfaction. Patient amenable to proceed as planned. PROCEDURE Patient was brought back to operating theater and placed in supine position. SCDs were put in place. He was given preoperative antibiotics and general anesthesia commenced and he was placed in dorsal lithotomy position and prepped and draped in a standard fashion. A time-out was performed. I began by inserting the flexible cystoscope and navigated the bladder. The left ureteral orifice was seen and the distal end of the left stent was grasped and removed in its entirety. I then reintroduced the flexible cystoscope and partially removed the right ureteral stent after which a Sensor wire was passed through that ureteral stent and the stent was removed in its entirety. A right retrograde pyelogram was performed. It showed some fullness of the right renal pelvis and a large filling defect consistent with a large stone. The Sensor wire was replaced. The distal ureter was dilated with an 8/10 coaxial dilator after which a Super Stiff wire was placed. The 8/10 coaxial dilator was removed leaving both wires in place. A 06/15 45 ureteral access sheath was then passed over the Super Stiff wire up to the proximal ureter. The stone was encountered in the proximal ureter UPJ. At settings of 0.2 and 50 and 0.4 and 50, the stone was dusted. The stone was quite large increasing the complexity of this case. The stone was then fragmented. Numerous stone pieces were removed. At the end, I do not see any pieces that appeared to be clinically significant. A 200 holmium laser fiber was used. I utilized 2 fibers. The ureteral access sheath was removed and there was no evidence of obstruction. The stent was replaced. A 6 x 26 ureteral stent was then passed over the Super Stiff wire with coils confirmed in the kidney and bladder by fluoroscopy. The procedure was then complete. The patient was awakened from anesthesia and transferred to recovery in stable condition. Electronically Authenticated and Edited by: Sanchez Butterfiedl MD On 10/03/2016 05:06 PM CDT Sanchez Butterfield M.D. SUJIT/rusty TD: 10/03/2016 16:31 documented in this encounter Plan of Treatment Not on file documented as of this encounter Procedures Procedure Name Priority Date/Time Associated Diagnosis Comments RETROGRADE PYELOGRAM Routine 09/28/2016 4:19 PM CDT documented in this encounter Results * XR Retrograde Pyelogram (09/28/2016 4:19 PM CDT) Anatomical Region Laterality Modality Body N/A Radiographic Jennifer ging 09/28/2016 4:19 PM CDT Narrative 09/28/2016 4:19 PM CDT XR Retrograde Pyelogram [id number] ??Acc#: ??[id number] DATE OF EXAM: ??Sep 28 2016 CLINICAL HISTORY: 2.6 cm calculus at right renal pelvis on 09/26/16 KUB with bilateral double pigtail ureteral stents in place. RESULT: Eleven images of the right urinary tract were obtained in surgery. Double pigtail ureteral stent was initially in place. ??This was removed. A balloon tip straight catheter was advanced over a guidewire up to the proximal right ureter. ??Contrast was injected, partially opacifying the right proximal ureter as well as the renal pelvis and some of the right renal calyces. This outlines the large calculus at the right ureteropelvic junction. ??Guidewire was advanced past the stone into the upper pole infundibulum. Larger bore catheter with flared end was introduced up to the distal margin of the renal pelvic calculus. ??Next image shows small bore catheter extending into upper pole calyx-infundibulum of the right kidney with opacification of the upper pole calyces, but limited opacification of other portions of the right urinary tract. ??Calculus is not discretely seen. ??Next image shows guidewire extending into upper pole calyx and ureteroscope in placed with tip directed inferiorly towards the lower pole calyx. Next image shows the guidewire with catheter overlying it extending into the upper pole calyx. ??Next images shows injection of contrast which opacifies the upper pole calyx in the infundibulum, but only a small amount of residual contrast in lower pole collecting system. ??No extravasation is observed. Final image shows double pigtail right ureteral stent in place with upper pigtail in the upper pole calyx and lower pigtail in the urinary bladder. ??Discrete calculi are not seen on this final image. IMPRESSION: 1. ??RIGHT RETROGRADE PYELOGRAM AND REMOVAL OF LARGE RIGHT RENAL PELVIC CALCULUS AND THEN PLACEMENT OF A DOUBLE PIGTAIL RIGHT URETERAL STENT. 2. ??RESIDUAL CALCULUS FRAGMENTS NOT DISCRETELY IDENTIFIABLE ON THE FINAL IMAGE, BUT FOLLOWUP SUGGESTED AFTER CLEARANCE OF THE CONTRAST FROM THE RIGHT URINARY TRACT. FLUOROSCOPY TIME FOR PROCEDURE WAS 1 MINUTE 56 SECONDS. ??8 ML CYSTOCONRAY WERE UTILIZED. Interpreting Physician: ??DR DAVID CRAIG M.D. ??Read on: ??Sep 28 2016 12:08P Transcribed by: ??[facility] ??On: Sep 28 2016 ??2:40P Approved Electronically by: ??RAFA Mcginnis, DR HERNANDEZ ??on: ??Sep 28 2016 7:49P Attending: ??SANCHEZ BUTTERFIELD Requesting: ??DR SANCHEZ BUTTERFIELD Requesting Fax: ??[phone] Attending Fax: ??-- Attending ID: ??[id number] Requesting ID: ??[id number] Report To 1 ID: ??[id number] Report To 1 Name: ??SANCHEZ BUTTERFIELD Report To 1 FAX: ??-- NextGen Order #: ?? Procedure Note Miscellaneous, Notinfile / Provider, MD Wilian - 11/23/2016 XR Retrograde Pyelogram [id number] Acc#: [id number] DATE OF EXAM: Sep 28 2016 CLINICAL HISTORY: 2.6 cm calculus at right renal pelvis on 09/26/16 KUB with bilateral doublepigtail ureteral stents in place. RESULT: Eleven images of the right urinary tract were obtained in surgery. Doublepigtail ureteral stent was initially in place. This was removed. Aballoon tip straight catheter was advanced over a guidewire up to theproximal right ureter. Contrast was injected, partially opacifying theright proximal ureter as well as the renal pelvis and some of the rightrenal calyces. This outlines the large calculus at the right ureteropelvicjunction. Guidewire was advanced past the stone into the upper poleinfundibulum. Larger bore catheter with flared end was introduced up tothe distal margin of the renal pelvic calculus. Next image shows smallbore catheter extending into upper pole calyx-infundibulum of the rightkidney with opacification of the upper pole calyces, but limitedopacification of other portions of the right urinary tract. Calculus isnot discretely seen. Next image shows guidewire extending into upper polecalyx and ureteroscope in placed with tip directed inferiorly towards the lower pole calyx. Next image shows the guidewire with catheteroverlying it extending into the upper pole calyx. Next images showsinjection of contrast which opacifies the upper pole calyx in theinfundibulum, but only a small amount of residual contrast in lower polecollecting system. No extravasation is observed. Final image shows doublepigtail right ureteral stent in place with upper pigtail in the upper polecalyx and lower pigtail in the urinary bladder. Discrete calculi are notseen on this final image. IMPRESSION: 1. RIGHT RETROGRADE PYELOGRAM AND REMOVAL OF LARGE RIGHT RENAL PELVICCALCULUS AND THEN PLACEMENT OF A DOUBLE PIGTAIL RIGHT URETERAL STENT. 2. RESIDUAL CALCULUS FRAGMENTS NOT DISCRETELY IDENTIFIABLE ON THE FINALIMAGE, BUT FOLLOWUP SUGGESTED AFTER CLEARANCE OF THE CONTRAST FROM THERIGHT URINARY TRACT. FLUOROSCOPY TIME FOR PROCEDURE WAS 1 MINUTE 56SECONDS. 8 ML CYSTOCONRAY WERE UTILIZED. Interpreting Physician: DR DAVID CRAIG M.D. Read on: Sep 28 201612:08P Transcribed by: [facility] On: Sep 28 2016 2:40P Approved Electronically by: RAFA Mcginnis, DR HERNANDEZ on: Sep 28 20167:49P Attending: SANCHEZ BUTTERFIELD Requesting: DR SANCHEZ BUTTERFIELD Requesting Attending Fax: -- Attending ID: [id number] Requesting ID: [id number] Report To 1 ID: [id number] Report To 1 Name: SANCHEZ BUTTERFIELD Report To 1 FAX: -- NextGen Order #: us Not In File Miscellaneous IMG FLUOROSCOPY PROCED URES Final Result documented in this encounter Visit Diagnoses Not on filedocumented in this encounter Care Teams Excelsior Machine Feeder Relationship Specialty Start Date End Date Wesley Em MD PCP - General 09/01/16 09/29/16 documented as of this encounter
--- OUTSIDE RECORDS SUMMARY | 2024-06-18 18:17 | XMS_ITS | Encounter Summary ---
Author Organization [facility] Healthcare Address [address] [place] [address] Care Team Providers Care Central Supply Clerk Name Role Phone Wesley Em MD Primary Care Provider [phone] Encounter Details Date Type Department Care Team (Late st Contact Info) Description 09/30/2015 12:53 PM CDT - 09/30/2015 11:59 PM CDT Hospital Encounter [facility] Wesley Em MD [address] [place] [id number] Disorder of prostate Social History Tobacco Use Types Packs/Day Years Used Date Smoking Tobacco: Former Alcohol Use Standard Drinks/Week Comments No 0 (1 standard drink = 0.6 oz pur e alcohol) Sex and Gender Information Value Date Recorded Sex Assigned at Not on file 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 ?Patient Name: ?VILLA ALSTON SR J ?Med. Rec#: ?? [id number] ?Pt. Acct.#: ??[id number] ?Birthdate: ?? 1945 ?Age / Sex: ?? 69Y / M ?Location: ?[facility] (Laborato ?Admit Date: ??09/23/2015 ?Discharge Date: ? 09/23/2015 ?Doctor: ?Patient Type: ?[facility] Ref Lab - Insuran Culture, Urine ? Collected: 09/30/2015 11:56 Specimen: Urine ?? Specimen Source: Clean Voided Specimen Status: Final ??Last Update: 10/02/2015 10:03 Organism ?? Less than 10,000 cfu/ml of ?? multiple Gram positive organisms Organism ?? Less than 10,000 cfu/ml of ?? Gram negative bacilli Comment ? This culture result is consistent with contamination ?? by normal genital-perineal messi. us Historical Provider LAB MICROBIOLOGY - GENERA L ORDERABLES Final Result HISTORICAL RESULTS documented in this encounter Visit Diagnoses Diagnosis Disorder of prostate Unspecified disorder of prostate documented in this encounter Care Teams Central Supply Clerk Relationship Specialty Start Date End Date Wesley Em MD PCP - General 10/12/12 08/31/16 documented as of this encounter
--- OUTSIDE RECORDS SUMMARY | 2024-06-18 18:17 | XMS_ITS | Encounter Summary ---
Author Organization [facility] Address [address] [place] [address] Care Team Providers Care Handkerchief Maker Name Role Phone Wesley Em MD Primary Care Provider [phone] Wesley Em MD Primary Care Provider [phone] Encounter Details Date Type Department Care Team (Late st Contact Info) Description 09/28/2016 Orders Only [facility] [phone] Simon Bucio MD [facility] [address] Social History Tobacco Use Types Packs/Day Years Used Date Smoking Tobacco: Former Alcohol Use Standard Drinks/Week Comments No 0 (1 standard drink = 0.6 oz pur e alcohol) Sex and Gender Information Value Date Recorded Sex Assigned at Not on file 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 Gender Identity Not on file Sexual Orientation Straight 01/23/2021 10 :16 PM CDT documented as of this encounter Plan of Treatment Not on file documented as of this encounter Procedures Procedure Name Priority Date/Time Associated Diagnosis Comments POTASSIUM, WHOLE BLOOD STAT 09/28/2016 7:40 AM CDT documented in this encounter Results * Potassium, Whole Blood (09/28/2016 7:40 AM CDT) Potassium, bld 4.1 3.5 - 5.0 mmol/L [facility] ([facility]) Blood specimen (specimen) 09/28/2016 7:40 AM CDT 09/28/2016 7:45 AM CDT us Simon Bucio MD LAB BLOOD ORDERABLES F inal Result [facility] (BETTY) [facility] Department [place] [address] documented in this encounter Visit Diagnoses Not on filedocumented in this encounter Care Teams Handkerchief Maker Relationship Specialty Start Date End Date Wesley Em MD PCP - General 09/30/16 12/01/21 Wesley Em MD PCP - General 09/01/16 09/29/16 documented as of this encounter
--- OUTSIDE RECORDS SUMMARY | 2024-06-18 18:17 | XMS_ITS | Encounter Summary ---
Author Organization [facility] Healthcare Address [address] [place] [address] Care Team Providers Care Mowing Machine Operator Name Role Phone Wesley Em MD Primary Care Provider [phone] Encounter Details Date Type Department Care Team (Latest Contact Info) Description 09/16/2016 12:22 PM CDT - 09/16/2016 8:20 PM CDT Hospital Encounter [facility] OP Simon Bucio MD [address] [address] Hydronephrosis with renal and ureteral calculus obstruction; Hyperlipidemia; Essential (primary) hypertension; longterm current use of aspirin Social History Tobacco Use Types Packs/Day Years Used Date Smoking Tobacco: Former Alcohol Use Standard Drinks/Week Comments No 0 (1 standard drink = 0.6 oz pur e alcohol) Sex and Gender Information Value Date Recorded Sex Assigned at Not on file 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] Procedure Name Priority Date/Time Associated Diagnosis Comments STONE ANALYSIS Routine 09/16/2016 6:30 PM CDT RETROGRADE PYELOGRAM Routine 09/16/2016 12:00 AM CDT XR ABDOMEN AP 1 VIEW Routine 09/16/2016 12:00 AM CDT documented in this encounter Results * Stone analysis (09/16/2016 6:30 PM CDT) Stone Mass 6 mg 09/22/2016 9:43 AM CDT [facility] HISTORICAL RESULTS Number of Stones 3 09/23/19 17 9:43 AM CDT [facility] HISTORICAL RESULTS Stone Size 1 to 4 mm 09/22/2016 9:43 AM CDT [facility] HISTORICAL RESULTS Stone Description See Note 9:43 AM CDT [facility] HISTORICAL RESULTS Comment: Specimen consists of three, small, ?? brown, irregular calculi fragments. ?? Stone Composition See Note 9:43 AM CDT [facility] HISTORICAL RESULTS Comment: Calculi composed primarily of ?? calcium oxalate monohydrate. ?? INTERPRETIVE INFORMATION: Calculi (Stone) analysis ?? Calculi are the products of physiological processes that ?? yield crystalline compounds in a matrix of biological ?? compounds and blood. ??Matrix components are not reported. ?? The clinically significant crystalline components ?? identified in calculi specimens are reported. ??Gross ?? description may not be consistent with composition ?? determined by FTIR analysis. ?? Performed by [facility], ?? [address], [facility] [place] [address] ?? www.[employer], Luis Spence MD, Lab. Director ?? 09/16/2016 6:30 PM CDT 09/19/2016 9:45 AM CDT us Simon Bucio MD LAB URINE ORDERABLES F inal Result [facility] HISTORICAL RESULTS * XR Abdomen Ap 1 Vw (09/16/2016 12:00 AM CDT) Anatomical Region Laterality Modality Body, Abdomen N/A Radiographic Jennifer ging 09/16/2016 Impressions 09/16/2016 1:50 PM CDT Possible large right 2.2 cm right renal calculus that is partially obscured by bowel contents. ??Correlate with any preexisting imaging that is not available at this time. THIS IS AN ELECTRONICALLY VERIFIED REPORT 09/16/2016 1:46 PM: ??Vahe Mcintyre M.D. ?? Vahe Mcintyre M.D. JUSTIN:justin 01:46 PM 01:46 PM NAYA [EOD] Narrative 09/16/2016 1:50 PM CDT EXAMINATION: ??Single frontal view of the abdomen. HISTORY: Pre lithotripsy bilateral flank pain. ??1 week duration of symptoms. TECHNIQUE: ??Single frontal view of the abdomen. No comparison. Findings: There is no small or large bowel dilation. ??there is an ovoid 2.2 x 1.3 cm hyperdensity overlying the right renal shadow where there is adjacent bowel contents. ??This could be advertising sales representative of a renal calculus. ??There are pelvic phleboliths. ??No evidence of free abdominal air. Procedure Note Provider, MD Wilian - 11/18/2020 EXAMINATION: Single frontal view of the abdomen. HISTORY: Pre lithotripsy bilateral flank pain. 1 week duration ofsymptoms. TECHNIQUE: Single frontal view of the abdomen. No comparison. Findings: There is no small or large bowel dilation. there is an ovoid 2.2 x 1.3 cm hyperdensity overlying the right renal shadow where there is adjacentbowel contents. This could be advertising sales representative of a renal calculus. There arepelvic phleboliths. No evidence of free abdominal air. IMPRESSION: Possible large right 2.2 cm right renal calculus that ispartially obscured by bowel contents. Correlate with any preexisting imaging thatis not available at this time. THIS IS AN ELECTRONICALLY VERIFIED REPORT 09/16/2016 1:46 PM: Vahe Mcintyre M.D. Vahe Mcintyre M.D. JUSTIN:justin 01:46 PM 01:46 PM NAYA [EOD] us Simon Bucio MD IMG XR PROCEDURES Iwona l Result * FL Retrograde Pyelogram (09/16/2016 12:00 AM CDT) Anatomical Region Laterality Modality Body N/A Radiographic Jennifer ging 09/16/2016 Impressions 09/16/2016 7:21 PM CDT ?? Placement of double-J stents overlying the right and left ureters. Please see operative summary for full report. THIS IS AN ELECTRONICALLY VERIFIED REPORT 09/16/2016 7:18 PM: ??Matthew Garrett M.D. ?? Matthew Garrett M.D. CN:[email or web address] 07:18 PM 07:18 PM [facility] [EOD] Narrative 09/16/2016 7:21 PM CDT EXAMINATION: Retrograde pyelogram HISTORY: ??Bilateral flank pain, undergoing lithotripsy and bilateral ureteral stent placement TECHNIQUE: ?? 7 fluoroscopic images of the abdomen and pelvis were obtained. Fluoroscopic time: 1 minute, 30 seconds FINDINGS: ?? Minimal contrast opacification of the right and left proximal collecting systems demonstrates bilateral hydronephrosis.. ??Interval placement of a double-J stent, with the proximal loops coiled over the expected region of the right and left renal cristiano and the distal loops projecting over the expected region of the urinary bladder. ?? Procedure Note Provider, MD Wilian - 11/18/2020 EXAMINATION: Retrograde pyelogram HISTORY: Bilateral flank pain, undergoing lithotripsy and bilateralureteral stent placement TECHNIQUE: 7 fluoroscopic images of the abdomen and pelvis were obtained. Fluoroscopic time: 1 minute, 30 seconds FINDINGS: Minimal contrast opacification of the right and left proximal collecting systems demonstrates bilateral hydronephrosis.. Interval placement of a double-J stent, with the proximal loops coiled over the expected region ofthe right and left renal cristiano and the distal loops projecting over theexpected region of the urinary bladder. IMPRESSION: Placement of double-J stents overlying the right and left ureters. Pleasesee operative summary for full report. THIS IS AN ELECTRONICALLY VERIFIED REPORT 09/16/2016 7:18 PM: Matthew Garrett M.D. Matthew Garrett M.D. CN:[email or web address] 07:18 PM 07:18 PM [facility] [EOD] us Simon Bucio MD IMG FLUOROSCOPY PROCED URES Final Result documented in this encounter Visit Diagnoses Diagnosis Hydronephrosis with renal and ureteral calculus obstruction Hyperlipidemia Other and unspecified hyperlipidemia Essential (primary) hypertension Unspecified essential hypertension longterm current use of aspirin documented in this encounter Care Teams Mowing Machine Operator Relationship Specialty Start Date End Date Wesley Em MD PCP - General 09/01/16 09/29/16 documented as of this encounter
--- OUTSIDE RECORDS SUMMARY | 2024-06-18 18:17 | XMS_ITS | Encounter Summary ---
Author Organization [facility] Healthcare Address [address] [place] [address] Care Team Providers Care Community Liaison Name Role Phone Gene Em MD Primary Care Provider [phone] Encounter Details Date Type Department Care Team (Late st Contact Info) Description 03/22/2016 9:32 AM CDT - 03/22/2016 11:59 PM CDT Hospital Encounter [facility] Gene Em MD [address] [place] [id number] Encounter for screening for respiratory disorder; Atherosclerotic heart disease of [place] coronary artery without angina pectoris Social History Tobacco Use Types Packs/Day Years Used Date Smoking Tobacco: Former Alcohol Use Standard Drinks/Week Comments No 0 (1 standard drink = 0.6 oz pur e alcohol) Sex and Gender Information Value Date Recorded Sex Assigned at Not on file 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 DIAGNOSIS: ??ENCOUNTER FOR SCREENING FOR RESPIRATORY CLINICAL HISTORY: ?? ENCOUNTER FOR SCREENING FOR RESPIRATORY DIDSORDER RESULT: EXAMINATION: CT CHEST WITHOUT CONTRAST, LUNG CANCER SCREENING PROTOCOL. FINDING: Comparison is made to the CT examination dated 02/24/2015. There is no evidence of pulmonary nodule or mass. The previously described lingular subpleural nodular density is consistent with epicardial fat. The lungs are free of acute pathologic densities. There is no pneumothorax or pleural effusion. The heart size is normal. There is no pathologic mediastinal lymphadenopathy. Severe coronary artery calcifications are present. A mild thoracic dextroscoliosis is present. Multilevel degenerative changes involve the thoracic spine. The upper abdominal examination is obscured secondary to artifact. Colonic hepatic interposition has been partially imaged. IMPRESSION: ? 1. LUNG RADS CATEGORY 1, NEGATIVE. 2. RECOMMENDATION INCLUDES CONTINUED ANNUAL SCREENING WITH LOW DOSE CHEST CT. 3. SEVERE CORONARY CALCIFIC ATHEROSCLEROSIS. CARGO TRIMMER: ??LB3 TRANSCRIBE DATE/TIME: ??Mar 22 2016 11:00A RADIOLOGIST: ??SADA DONALDSON M.D. ??READ ON: ??Mar 22 2016 10:51A ORDERING DR: GENE EM M.D. ? THIS DOCUMENT HAS BEEN ELECTRONICALLY SIGNED BY: ??SADA DONALDSON M.D. ??ON: ??Mar 22 2016 12:28P Attending: ??AARON, ??GENE Requesting: ??AARON, ??GENE Requesting Fax: ??[phone] Attending Fax: ??[phone] Attending ID: ??[id number] Requesting ID: ??[id number] Report To 1 ID: ?? Report To 1 Name: ??, ?? Report To 1 FAX: ??-- Report To 2 ID: ?? Report To 2 Name: ??, ?? Report To 2 FAX: ??-- NextGen Order #: ?? Procedure Note Provider, MD Wilian - 10/22/2016 DATE OF EXAM: Mar 22 2016 10:07AM Acc#: [id number] ECT 0363 - CT Lung Cancer Screening DIAGNOSIS: ENCOUNTER FOR SCREENING FOR RESPIRATORY CLINICAL HISTORY: ENCOUNTER FOR SCREENING FOR RESPIRATORY DIDSORDER RESULT: EXAMINATION: CT CHEST WITHOUT CONTRAST, LUNG CANCER SCREENING PROTOCOL. FINDING: Comparison is made to the CT examination dated 02/24/2015. There is no evidence of pulmonary nodule or mass. The previously described lingular subpleural nodular density is consistent with epicardial fat. The lungs are free of acute pathologic densities. There is no pneumothorax or pleural effusion. The heart size is normal. There is no pathologic mediastinal lymphadenopathy. Severe coronary artery calcifications are present. A mild thoracic dextroscoliosis is present. Multilevel degenerative changes involve the thoracic spine. The upper abdominal examination is obscured secondary to artifact. Colonic hepatic interposition has been partially imaged. IMPRESSION: 1. LUNG RADS CATEGORY 1, NEGATIVE. 2. RECOMMENDATION INCLUDES CONTINUED ANNUAL SCREENING WITH LOW DOSE CHEST CT. 3. SEVERE CORONARY CALCIFIC ATHEROSCLEROSIS. CARGO TRIMMER: LB3 TRANSCRIBE DATE/TIME: Mar 22 2016 11:00A RADIOLOGIST: SADA DONALSDON M.D. READ ON: Mar 22 2016 10:51A ORDERING DR: GENE EM M.D. THIS DOCUMENT HAS BEEN ELECTRONICALLY SIGNED BY: SADA DONALDSON M.D. ON: Mar 22 2016 12:28P Attending: GENE EM Requesting: GENE EM Requesting Attending Attending ID: [id number] Requesting ID: [id number] Report To 1 ID: Report To 1 Name: , Report To 1 FAX: -- Report To 2 ID: Report To 2 Name: , Report To 2 FAX: -- NextGen Order #: us Historical Provider MD CUELLAR CT PROCEDURES Final R esult documented in this encounter Visit Diagnoses Diagnosis Encounter for screening for respiratory disorder Atherosclerotic heart disease of [place] coronary artery without angina pectoris documented in this encounter Care Teams Community Liaison Relationship Specialty Start Date End Date Gene Em MD PCP - General 10/12/12 08/31/16 documented as of this encounter
--- OUTSIDE RECORDS SUMMARY | 2024-06-18 18:17 | XMS_ITS | Encounter Summary ---
Author Organization [facility] Healthcare Address [address] [place] [address] Care Team Providers Care Freedom Of Information Officer Name Role Phone Gene Em MD Primary Care Provider [phone] Encounter Details Date Type Department Care Team (Late st Contact Info) Description 02/04/2015 7:25 AM CDT - 02/04/2015 11:59 PM CDT Hospital Encounter [facility] Gene Lopez MD [address] [place] [id number] Cerebral artery occlusion with cerebral infarction (CMS/HCC) Social History Tobacco Use Types Packs/Day Years Used Date Smoking Tobacco: Former Alcohol Use Standard Drinks/Week Comments No 0 (1 standard drink = 0.6 oz pur e alcohol) Sex and Gender Information Value Date Recorded Sex Assigned at Not on file 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 RESULT: 2D and 3D gradient echo fnoh-fs-dgizpp magnetic resonance angiography was performed with images rotated 180 degrees around vertical and horizontal axes. 2D images have a corrugated appearance that is most prominent in the common and proximal portions of internal and external carotid arteries, which is attributed to respiratory motion artifact. ??3D technique minimizes this effect. ??There is very mild indentation of the posterior margins of the carotid bulbs bilaterally, but not causing stenosis. ??Mild narrowing of the proximal right external carotid artery is observed. ??No other stenosis is seen. ??Left vertebral artery is large and the right is small. IMPRESSION: 1. SUGGESTION OF MINIMAL NONHEMODYNAMICALLY SIGNIFICANT PLAQUE AT CAROTID BULBS BILATERALLY. 2. 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 3. LEFT DOMINANT VERTEBRAL CIRCULATION. Interpreting Physician: ??DR DAVID CRAIG M.D. ??Read on: ??Jan ??2014 11:57A Transcribed by: ??lanny ??On: Jan ??2014 ??2:03P Approved Electronically by: ??RAFA Mcginnis, DR HERNANDEZ ??on: ??Aug ??6 2015 11:45A Attending: ??GENE EM Requesting: ??DR GENE EM Requesting Fax: ??-- Attending Fax: ??-- Attending ID: ??[id number] Requesting ID: ??[id number] Report To 1 ID: ??[id number] Report To 1 Name: ??GENE EM Report To 1 FAX: ??-- NextGen Order #: Procedure Note Provider, MD Wilian - 10/22/2016 MRA Carotids WO Acc#: [id number] DATE OF EXAM: Feb 04 2015 CLINICAL HISTORY: CVA. RESULT: 2D and 3D gradient echo nsxo-gd-qggasd magnetic resonance angiography wasperformed with images rotated 180 degrees around vertical and horizontalaxes. 2D images have a corrugated appearance that is most prominent in thecommon and proximal portions of internal and external carotid arteries,which is attributed to respiratory motion artifact. 3D techniqueminimizes this effect. There is very mild indentation of the posteriormargins of the carotid bulbs bilaterally, but not causing stenosis. Mildnarrowing of the proximal right external carotid artery is observed. Noother stenosis is seen. Left vertebral artery is large and the right issmall. IMPRESSION: 1. SUGGESTION OF MINIMAL NONHEMODYNAMICALLY SIGNIFICANT PLAQUE AT CAROTIDBULBS BILATERALLY. 2. 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 3. LEFT DOMINANT VERTEBRAL CIRCULATION. Interpreting Physician: DR DAVID CRAIG M.D. Read on: Feb 04 201511:57A Transcribed by: lanny On: Feb 04 2015 2:03P Approved Electronically by: RAFA Mcginnis, DR HERNANDEZ on: Feb 05 201511:45A Attending: GENE EM Requesting: DR GENE EM Requesting Fax: -- Attending Fax: -- Attending ID: [id number] Requesting ID: [id number] Report To 1 ID: [id number] Report To 1 Name: GENE EM Report To 1 FAX: -- NextGen Order #: Historical Provider MD CUELLAR MRI PROCEDURES Final Result * MRA & MRV Head WO Contrast (02/04/2015 8:08 AM CDT) Anatomical Region Laterality Modality Head and Neck N/A Magnetic Resonan ce 02/04/2015 8:08 AM CDT Narrative 02/05/2015 11:45 AM CDT MRA Brain WO ??Acc#: ??[id number] DATE OF EXAM: ??Jan ??2014 CLINICAL HISTORY: CVA. RESULT: 3D gradient echo vcqe-ag-pupapj magnetic resonance angiography was performed with images rotated 180 degrees around vertical and horizontal axes. Internal carotid arteries of normal caliber divide into normal caliber anterior and middle cerebral arteries. ??Anterior communicating artery is not seen. A large left vertebral artery and small right vertebral artery combine to form a normal caliber basilar artery, which later divides into normal caliber right and left posterior cerebral arteries. ??Posterior communicating arteries are not seen. ??No aneurysm or stenosis is identified. IMPRESSION: 1. LARGE LEFT AND VERY SMALL RIGHT VERTEBRAL ARTERIES FORMING BASILAR ARTERY. 2. UNIDENTIFIABLE ANTERIOR AND POSTERIOR COMMUNICATING ARTERIES. 3. NO INTERNAL CAROTID ARTERY OR CEREBRAL ARTERY ABNORMALITIES SEEN. Interpreting Physician: ??DR DAVID CRAIG M.D. ??Read on: ??Jan ??2014 11:54A Transcribed by: ??lanny ??On: Jan ??2014 ??2:00P Approved Electronically by: ??RAFA Mcginnis, DR HERNANDEZ ??on: ??Jan ??2014 11:45A Attending: ??GENE EM Requesting: ??DR GENE EM Requesting Fax: ??-- Attending Fax: ??-- Attending ID: ??[id number] Requesting ID: ??[id number] Report To 1 ID: ??[id number] Report To 1 Name: ??GENE EM Report To 1 FAX: ??-- NextGen Order #: Procedure Note Provider, MD Wilian - 10/22/2016 MRA Brain WO Acc#: [id number] DATE OF EXAM: Feb 04 2015 CLINICAL HISTORY: CVA. RESULT: 3D gradient echo aauu-go-qzdbmm magnetic resonance angiography wasperformed with images rotated 180 degrees around vertical and horizontalaxes. Internal carotid arteries of normal caliber divide into normalcaliber anterior and middle cerebral arteries. Anterior communicatingartery is not seen. A large left vertebral artery and small rightvertebral artery combine to form a normal caliber basilar artery, whichlater divides into normal caliber right and left posterior cerebralarteries. Posterior communicating arteries are not seen. No aneurysm orstenosis is identified. IMPRESSION: 1. LARGE LEFT AND VERY SMALL RIGHT VERTEBRAL ARTERIES FORMING BASILARARTERY. 2. UNIDENTIFIABLE ANTERIOR AND POSTERIOR COMMUNICATING ARTERIES. 3. NO INTERNAL CAROTID ARTERY OR CEREBRAL ARTERY ABNORMALITIES SEEN. Interpreting Physician: DR DAVID CRAIG M.D. Read on: Feb 04 201511:54A Transcribed by: lanny On: Feb 04 2015 2:00P Approved Electronically by: RAFA Mcginnis, DR HERNANDEZ on: Feb 05 201511:45A Attending: GENE EM Requesting: DR GENE EM Requesting Fax: -- Attending Fax: -- Attending ID: [id number] Requesting ID: [id number] Report To 1 ID: [id number] Report To 1 Name: GENE EM Report To 1 FAX: -- NextGen Order #: us Historical Provider MD CUELLAR MRI PROCEDURES Final Result documented in this encounter Visit Diagnoses Diagnosis Cerebral artery occlusion with cerebral infarction (HCC) Unspecified cerebral artery occlusion with cerebral infarction documented in this encounter Care Teams Freedom Of Information Officer Relationship Specialty Start Date End Date Gene Em MD PCP - General 10/12/12 08/31/16 documented as of this encounter
--- OUTSIDE RECORDS SUMMARY | 2024-06-18 18:17 | XMS_ITS | Encounter Summary ---
Author Organization [facility] Healthcare Address [address] [place] [address] Care Team Providers Care Cms Expert Name Role Phone Wesley Em MD Primary Care Provider [phone] Encounter Details Date Type Department Care Team (Late st Contact Info) Description 09/01/2016 10:09 AM AGRICULTURAL AGENT - 09/01/2016 11:59 PM AGRICULTURAL AGENT Hospital Encounter [facility] Wesley Em MD [address] [place] [address] Discharge Disposition: Discharge to home or self care Social History Tobacco Use Types Packs/Day Years Used Date Smoking Tobacco: Former Alcohol Use Standard Drinks/Week Comments No 0 (1 standard drink = 0.6 oz pur e alcohol) Sex and Gender Information Value Date Recorded Sex Assigned at Not on file 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
--- OUTSIDE RECORDS SUMMARY | 2024-06-18 18:17 | XMS_ITS | Encounter Summary ---
Author Organization [facility] Healthcare Address [address] [place] [address] Care Team Providers Care Flavor Extractor Name Role Phone Wesley Em MD Primary Care Provider [phone] Encounter Details Date Type Department Care Team (Late st Contact Info) Description 03/10/2015 2:19 PM CDT - 03/10/2015 11:59 PM CDT Hospital Encounter [facility] Wesley Em MD [address] [place] [id number] Type 2 or unspecified type diabetes mellitus; Mixed hyperlipidemia; Coronary atherosclerosis Social History Tobacco Use Types Packs/Day Years Used Date Smoking Tobacco: Former Alcohol Use Standard Drinks/Week Comments No 0 (1 standard drink = 0.6 oz pur e alcohol) Sex and Gender Information Value Date Recorded Sex Assigned at Not on file 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
--- OUTSIDE RECORDS SUMMARY | 2024-06-18 18:17 | XMS_ITS | Encounter Summary ---
Author Organization [facility] Healthcare Address [address] [place] [address] Care Team Providers Care Yard Spotter Name Role Phone Wesley Em MD Primary Care Provider [phone] Wesley Em MD Primary Care Provider [phone] Encounter Details Date Type Department Care Team (Late st Contact Info) Description 05/05/2016 10:42 AM CDT - 09/08/2016 11:59 PM PACKAGING TECHNICIAN Hospital Encounter [facility] Hoskins, Roger Steele MD [address] [place] [id number] Polycythemia vera (CMS/HCC); Polycythemia vera(238.4) ([facility]/HCC) Social History Tobacco Use Types Packs/Day Years Used Date Smoking Tobacco: Former Alcohol Use Standard Drinks/Week Comments No 0 (1 standard drink = 0.6 oz pur e alcohol) Sex and Gender Information Value Date Recorded Sex Assigned at Not on file Legal Sex Male 6:00 PM PACKAGING TECHNICIAN Gender Identity Not on file Sexual [...] Diagnosis Comments BLOOD CELL COUNT (CBC) Routine 7 4:20 AM PACKAGING TECHNICIAN DISCHARGE LABORATORY CUMULATIVE REPORT 09/08/2016 SERUM ESTIMATED GLOMERULAR FILTRATION RATE Routine 07/14/2016 10:45 AM PACKAGING TECHNICIAN BLOOD CELL COUNT (CBC) Routine 7 4:45 AM PACKAGING TECHNICIAN PLASMA COMPREHENSIVE METABOLIC PANEL Routine 07/14/2016 4:45 AM PACKAGING TECHNICIAN SERUM ESTIMATED GLOMERULAR FILTRATION RATE Routine 06/16/2016 11:10 AM PACKAGING TECHNICIAN BLOOD CELL COUNT (CBC) Routine 6 5:10 AM PACKAGING TECHNICIAN PLASMA BASIC METABOLIC PANEL Routine 06/16/2016 5:10 AM PACKAGING TECHNICIAN BLOOD CELL COUNT (CBC) Routine 6 5:45 AM PACKAGING TECHNICIAN BLOOD CELL COUNT (CBC) Routine 6 10:55 AM CDT documented in this encounter Results * (ABNORMAL) Blood cell count (CBC) (09/08/2016 4:20 AM PACKAGING TECHNICIAN) WBC 5.8 3.8 - 9.8 K/cumm CDR HISTORICAL RESULTS RBC 4.49(L) 4.50 - 5.70 M/cumm CDR HISTORICAL RESULTS Hgb 12.7(L) 13.8 - 17.2 g/dl CDR HISTORICAL RESULTS Hct 37.9(L) 40.7 - 50.3 % CDR HISTORICAL RESULTS MCV 84.4 80.0 - 100.0 fl CDR HISTORICAL RESULTS MCH 28.3 26.7 - 33.7 pg CDR HISTORICAL RESULTS MCHC 33.5 32.7 - 36.0 g/dl CDR HISTORICAL RESULTS Platelets 159 140 - 440 K/cumm CDR HISTORICAL RESULTS MPV 10.0 8.0 - 12.0 fl CDR HISTORICAL RESULTS Neutrophils, abs 3.8 1.6 - 7.0 K/cumm CDR HISTORICAL RESULTS Blood specimen (specimen) 09/08/2016 4:20 AM PACKAGING TECHNICIAN Narrative CDR HISTORICAL RESULTS - 09/08/2016 4:24 AM PACKAGING TECHNICIAN 2 [place] Roger Hoskins MD LAB BLOOD ORDERABLES Fin al Result CDR HISTORICAL RESULTS * DISCHARGE LABORATORY CUMULATIVE REPORT (09/08/2016) Narrative 09/08/2016 Ordered by an unspecified provider. [facility] Provider LAB BLOOD ORDERABLES Iwona l Result * Serum estimated glomerular filtration rate (07/14/2016 10:45 AM PACKAGING TECHNICIAN) Pathologist [facility] eGFR >60 ml/min/1.7 3 m2 CDR HISTORICAL RESULTS Comment: Interpretive Data Reference Interval Normal ?>/= 90 mL/min/1.73m2 Mildly decreased* ? 60 - 89 mL/min/1.73m2 Mildly to moderately decreased ?45 - 59 mL/min/1.73m2 Moderately to severely decreased ??30 - 44 mL/min/1.73m2 Severely decreased ?15 - 29 mL/min/1.73m2 Kidney Failure ?< 15 ??mL/min/1.73m2 *Relative to young adult level If -[place] multiply value by 1.16. Estimated glomerular filtration [...] interpretive data was last reviewed 2016. Serum 07/14/2016 10:4 5 AM PACKAGING TECHNICIAN Historical Provider LAB BLOOD ORDERABLES Iwona l Result Performing Organization Address City/[facility] Co de Phone Number CDR HISTORICAL RESULTS * Blood cell count (CBC) (07/14/2016 4:45 AM PACKAGING TECHNICIAN) WBC 5.6 3.8 - 9.8 K/cumm CDR HISTORICAL RESULTS RBC 4.94 4.50 - 5.70 M/cumm CDR HISTORICAL RESULTS Hgb 14.1 13.8 - 17.2 g/dl CDR HISTORICAL RESULTS Hct 41.7 40.7 - 50.3 % CDR HISTORICAL RESULTS MCV 84.4 80.0 - 100.0 fl CDR HISTORICAL RESULTS MCH 28.5 26.7 - 33.7 pg CDR HISTORICAL RESULTS MCHC 33.8 32.7 - 36.0 g/dl CDR HISTORICAL RESULTS Platelets 180 140 - 440 K/cumm CDR HISTORICAL RESULTS MPV 10.4 8.0 - 12.0 fl CDR HISTORICAL RESULTS Neutrophils, abs 3.6 1.6 - 7.0 K/cumm CDR HISTORICAL RESULTS Blood specimen (specimen) 07/14/2016 4:45 AM PACKAGING TECHNICIAN Narrative CDR HISTORICAL RESULTS - 07/14/2016 4:52 AM PACKAGING TECHNICIAN 1 MO PHELOBOTOMY Historical Provider LAB BLOOD ORDERABLES Iwona l Result Performing Organization Address City/[facility] Co de Phone Number CDR HISTORICAL RESULTS * (ABNORMAL) Plasma comprehensive metabolic panel (07/14/2016 4:45 AM PACKAGING TECHNICIAN) Sodium 138 135 - 145 mmol/L CDR HISTORICAL RESULTS K, pl 3.4(L) 3.5 - 5.1 mmol/L CDR HISTORICAL RESULTS Chloride 101 97 - 110 mmol/L CDR HISTORICAL RESULTS CO2 31 22 - 32 mmol/L CDR HISTORICAL RESULTS A. gap 6(L) 8 - 16 mmol/L CDR HISTORICAL RESULTS Glucose 121 70 - 199 mg/dl CDR HISTORICAL RESULTS Comment: Interpretive Data Note:The glucose [...] data was last revised on 2014. BUN 15.4 8.0 - 25.0 mg/dl CDR HISTORICAL RESULTS Creatinine 1.19 0.70 - 1.30 mg/dl CDR HISTORICAL RESULTS BUN/creat ratio 13 10 - 20 CDR HISTORICAL RESULTS Calcium 9.1 8.6 - 10.2 mg/dl CDR HISTORICAL RESULTS Protein, sr 6.6 6.0 - 8.4 g/dl CDR HISTORICAL RESULTS Alb 4.2 3.6 - 5.0 g/dl CDR HISTORICAL RESULTS Alk phos 91 40 - 130 Units/L CDR HISTORICAL RESULTS ALT 10 5 - 50 Units/L CDR HISTORICAL RESULTS AST 12 10 - 45 Units/L CDR HISTORICAL RESULTS Bilirubin 0.3 <=1.2 mg/dl CDR HISTORICAL RESULTS Plasma 07/14/2016 4:45 AM PACKAGING TECHNICIAN Narrative CDR HISTORICAL RESULTS - 07/14/2016 6:54 AM PACKAGING TECHNICIAN 1 [place] PHELOBOTOMY us Historical Provider LAB BLOOD ORDERABLES Iwona mackay Result CDR HISTORICAL RESULTS * Serum estimated glomerular filtration rate (06/16/2016 11:10 AM PACKAGING TECHNICIAN) eGFR >60 ml/min/1.7 3 m2 CDR HISTORICAL RESULTS Comment: Interpretive Data Reference Interval Normal ?>/= 90 mL/min/1.73m2 Mildly decreased* ? 60 - 89 mL/min/1.73m2 Mildly to moderately decreased ?45 - 59 mL/min/1.73m2 Moderately to severely decreased ??30 - 44 mL/min/1.73m2 Severely decreased ?15 - 29 mL/min/1.73m2 Kidney Failure ?< 15 ??mL/min/1.73m2 *Relative to young adult level If -[place] multiply value by 1.16. Estimated glomerular filtration [...] interpretive data was last reviewed 2016. Serum 06/16/2016 11:1 0 AM PACKAGING TECHNICIAN us Historical Provider LAB BLOOD ORDERABLES Iwona mackay Result CDR HISTORICAL RESULTS * (ABNORMAL) Blood cell count (CBC) (06/16/2016 5:10 AM PACKAGING TECHNICIAN) WBC 6.0 3.8 - 9.8 K/cumm CDR HISTORICAL RESULTS RBC 4.86 4.50 - 5.70 M/cumm CDR HISTORICAL RESULTS Hgb 13.7(L) 13.8 - 17.2 g/dl CDR HISTORICAL RESULTS Hct 40.5(L) 40.7 - 50.3 % CDR HISTORICAL RESULTS MCV 83.3 80.0 - 100.0 fl CDR HISTORICAL RESULTS MCH 28.2 26.7 - 33.7 pg CDR HISTORICAL RESULTS MCHC 33.8 32.7 - 36.0 g/dl CDR HISTORICAL RESULTS Platelets 172 140 - 440 K/cumm CDR HISTORICAL RESULTS MPV 9.9 8.0 - 12.0 fl CDR HISTORICAL RESULTS Neutrophils, abs 3.3 1.6 - 7.0 K/cumm CDR HISTORICAL RESULTS Blood specimen (specimen) 06/16/2016 5:10 AM PACKAGING TECHNICIAN Narrative CDR HISTORICAL RESULTS - 06/16/2016 5:16 AM PACKAGING TECHNICIAN 4 WK Historical Provider LAB BLOOD ORDERABLES Iwona l Result CDR HISTORICAL RESULTS * Plasma basic metabolic panel (06/16/2016 5:10 AM PACKAGING TECHNICIAN) Sodium 140 135 - 145 mmol/L CDR HISTORICAL RESULTS K, pl 4.1 3.5 - 5.1 mmol/L CDR HISTORICAL RESULTS Chloride 102 97 - 110 mmol/L CDR HISTORICAL RESULTS CO2 29 22 - 32 mmol/L CDR HISTORICAL RESULTS A. gap 9 8 - 16 mmol/L CDR HISTORICAL RESULTS Glucose 119 70 - 199 mg/dl CDR HISTORICAL RESULTS Comment: Interpretive Data Note:The glucose [...] data was last revised on 2014. BUN 19.5 8.0 - 25.0 mg/dl CDR HISTORICAL RESULTS Creatinine 1.16 0.70 - 1.30 mg/dl CDR HISTORICAL RESULTS Calcium 8.9 8.6 - 10.2 mg/dl CDR HISTORICAL RESULTS BUN/creat ratio 17 10 - 20 CDR HISTORICAL RESULTS Plasma 06/16/2016 5:10 AM PACKAGING TECHNICIAN Narrative CDR HISTORICAL RESULTS - 06/16/2016 5:53 AM PACKAGING TECHNICIAN 4 WK Historical Provider LAB BLOOD ORDERABLES Iwona l Result CDR HISTORICAL RESULTS * (ABNORMAL) Blood cell count (CBC) (05/19/2016 5:45 AM PACKAGING TECHNICIAN) WBC 6.5 3.8 - 9.8 K/cumm CDR HISTORICAL RESULTS RBC 4.71 4.50 - 5.70 M/cumm CDR HISTORICAL RESULTS Hgb 13.3(L) 13.8 - 17.2 g/dl CDR HISTORICAL RESULTS Hct 39.2(L) 40.7 - 50.3 % CDR HISTORICAL RESULTS MCV 83.2 80.0 - 100.0 fl CDR HISTORICAL RESULTS MCH 28.2 26.7 - 33.7 pg CDR HISTORICAL RESULTS MCHC 33.9 32.7 - 36.0 g/dl CDR HISTORICAL RESULTS Platelets 185 140 - 440 K/cumm CDR HISTORICAL RESULTS MPV 10.2 8.0 - 12.0 fl CDR HISTORICAL RESULTS Neutrophils, abs 4.5 1.6 - 7.0 K/cumm CDR HISTORICAL RESULTS Blood specimen (specimen) 05/19/2016 5:45 AM PACKAGING TECHNICIAN Narrative CDR HISTORICAL RESULTS - 05/19/2016 5:52 AM PACKAGING TECHNICIAN 2 WK Historical Provider LAB BLOOD ORDERABLES Iwona mackay Result Performing Organization Address [facility] de Phone Number CDR HISTORICAL RESULTS * Blood cell count (CBC) (05/05/2016 10:55 AM CDT) WBC 5.4 3.8 - 9.8 K/cumm CDR HISTORICAL RESULTS RBC 5.35 4.50 - 5.70 M/cumm CDR HISTORICAL RESULTS Hgb 15.3 13.8 - 17.2 g/dl CDR HISTORICAL RESULTS Hct 43.7 40.7 - 50.3 % CDR HISTORICAL RESULTS MCV 81.7 80.0 - 100.0 fl CDR HISTORICAL RESULTS MCH 28.6 26.7 - 33.7 pg CDR HISTORICAL RESULTS MCHC 35.0 32.7 - 36.0 g/dl CDR HISTORICAL RESULTS Platelets 160 140 - 440 K/cumm CDR HISTORICAL RESULTS MPV 10.6 8.0 - 12.0 fl CDR HISTORICAL RESULTS Neutrophils, abs 3.4 1.6 - 7.0 K/cumm CDR HISTORICAL RESULTS Blood specimen (specimen) 05/05/2016 10:55 AM CDT Historical Provider LAB BLOOD ORDERABLES Iwona l Result Performing Organization Address [facility]/State/ZIP Co de Phone Number CDR HISTORICAL RESULTS documented in this encounter Visit Diagnoses Diagnosis Polycythemia vera (HCC) Polycythemia vera(238.4) Polycythemia vera documented in this encounter Care Teams Yard Spotter Relationship Specialty Start Date End Date Wesley Em MD PCP - General 09/01/16 09/29/16 Wesley Em MD PCP - General 10/12/12 08/31/16 documented as of this encounter
--- OUTSIDE RECORDS SUMMARY | 2024-06-18 18:17 | XMS_ITS | Encounter Summary ---
Author Organization [facility] Healthcare Address [address] [place] [address] Care Team Providers Care Sheet Metal Mechanic Name Role Phone Wesley Em MD Primary Care Provider [phone] Encounter Details Date Type Department Care Team (Late st Contact Info) Description 12/08/2014 10:00 AM CDT - 12/08/2014 11:59 PM CDT Hospital Encounter [facility] Sparkle Corrales MD [address] [place] [id number] Polycythemia vera (HCC) Social History Tobacco Use Types Packs/Day Years Used Date Smoking Tobacco: Former Alcohol Use Standard Drinks/Week Comments No 0 (1 standard drink = 0.6 oz pur e alcohol) Sex and Gender Information Value Date Recorded Sex Assigned at Not on file Legal Sex Male 6:00 PM ENTRY OPERATOR Gender Identity Not on file Sexual [...] Diagnosis Comments SERUM BASIC METABOLIC PANEL Routine 12/08/2014 10:20 AM CDT BLOOD CELL COUNT (CBC) Routine 12/08/2014 10:20 AM CDT DISCHARGE LABORATORY CUMULATIVE REPORT Routine 12/08/2014 12:00 AM CDT documented in this encounter Results * (ABNORMAL) Serum basic metabolic panel (12/08/2014 10:20 AM CDT) BUN 18.2 8.0 - 25.0 mg/dl HISTORICAL RESULTS Sodium 142 135 - 145 mmol/L HISTORICAL RESULTS Potassium, sr 3.8 3.5 - 5.1 mmol/L HISTORICAL RESULTS Chloride 105 97 - 110 mmol/L HISTORICAL RESULTS CO2 26 22 - 32 mmol/L HISTORICAL RESULTS Glucose 120 70 - 199 mg/dl HISTORICAL RESULTS Comment: Note:The glucose is assumed non fasting Fastin-99 mg/dl Random: 70-199 mg/dl Either a fasting glucose > 126 mg/dL or a random glucose > 200 mg/dL plus symptoms is diagnostic of diabetes when confirmed on another day. Fasting values > 100 mg/dl but < 125 mg/dL are diagnostic of impaired fasting glucose. Creatinine 0.88 0.70 - 1.30 mg/dl HISTORICAL RESULTS Comment: eGFR: >70 ml/min/1.73sq.m if non -[place]. eGFR: >70 ml/min/1.73sq.m if -[place]. AVE GFR for 60-69 yr. age group: ??85 ml/min/173sq.m Calculated using MDRD Equation BUN/creat ratio 21(H) 10 - 20 HIST ORICAL RESULTS A. gap 15 8 - 16 mmol/L HISTORICAL RESULTS Osmo, calc 286 280 - 301 mOsm/kg HISTORICAL RESULTS Calcium 9.0 8.6 - 10.2 mg/dl HISTORICAL RESULTS Serum 12/08/2014 10:2 0 AM CDT Sparkle Colindres MD LAB BLOOD ORDERABLES Ziggy dunham Result Performing Organization Address [facility] Co de Phone Number HISTORICAL RESULTS * (ABNORMAL) Blood cell count (CBC) (12/08/2014 10:20 AM CDT) Pathologist [facility] WBC 6.7 4.5 - 10.6 K/cumm HISTORICAL RESULTS RBC 5.29 4.00 - 6.01 M/cumm HISTORICAL RESULTS Hgb 14.1 11.0 - 18.1 g/dl HISTORICAL RESULTS Hct 42.6 35.0 - 60.0 % HISTORICAL RESULTS MCV 80.5 80.0 - 100.0 fl HISTORICAL RESULTS MCH 26.7(L) 27.0 - 31.0 pg HISTORICAL RESULTS MCHC 33.1 33.0 - 37.0 g/dl HISTORICAL RESULTS Platelets 225 150 - 400 K/cumm HISTORICAL RESULTS Lymphocytes 25.6 20.0 - 50.0 % HISTORICAL RESULTS Monos 10.2 1.0 - 13.0 % HISTORICAL RESULTS Neutrophils 64.2 30.0 - 70.0 % HISTORICAL RESULTS Lymphocytes, abs 1.7 0.9 - 5.3 K/cumm HISTORICAL RESULTS Monocytes, absolute 0.7 0.1 - 1.1 K/cumm HISTORICAL RESULTS Neutrophils, abs 4.3 1.3 - 7.4 K/cumm HISTORICAL RESULTS Blood specimen (specimen) 12/08/2014 10:20 AM CDT Sparkle Colindres MD LAB BLOOD ORDERABLES Fin al Result HISTORICAL RESULTS * Discharge Laboratory Cumulative Report (12/08/2014 12:00 AM CDT) 12/08/2014 Narrative HISTORICAL RESULTS - 02/08/2015 2:49 AM CDT Patient No: [id number] ? [facility] Patient Name: VILLA ALSTON ?[facility] Healthcare Age: 69 YRS ?: 1945 ?Sex:M ?[address] )[id number] ?? Adm Dt: 12/08/2014 ?[place], [place] ??[address] Created: 02/08/2015 ??0249 ?? Pt. Type: D ? Discharge Dt: 12/08/2014 ? Pathologists: Brooklyn Ortiz MD Admit Dr. Vega Dr: SPARKLE COLINDRES MD ? BLOOD CELL COUNTS ?Collection Date: ?/08/15 ?Collection Time: ?1020 ? Ref Range: ?? Units: [4.50-10.60] /CMM ? WBC X 10^3 ?6.70 [4.00-6.01] ??/CMM ? RBC X 10^6 ?5.29 [11.0-18.1] ??G/DL ? HGB ? 14.1 [35.0-60.0] ??% ?HCT ? 42.6 [80.0-100.0] FL ? MCV ? 80.5 [27.0-31.0] ??PG ? MCH ? 26.7 L [33.0-37.0] ??% ?MCHC ?33.1 [150-400] ?? /CMM ? PLT X 10^3 ? 225 [20.0-50.0] ??% ?LYMPH PERCENT ? 25.6 [1.0-13.0] ??% ?MONO PERCENT ?10.2 [30.0-70.0] ??% ?GRANULOCYE % ?64.2 [0.9-5.3] ?? /CMM ? A LYMPH ?1.7 [1.3-7.4] ?? /CMM ? A GRANULOCYTE ?4.3 [0.1-1.1] ?? /CMM ? A MONO ? 0.7 ? GENERAL CHEMISTRY ?Collection Date: ?12/08/14 ?Collection Time: ?1020 ? Ref Range: ?? Units: [135-145] ?? MMOL/L ? SODIUM ? 142 [3.5-5.1] ?? MMOL/L ? POTASSIUM ?3.8 [97.0-110.0] MMOL/L ? CHLORIDE ? 105.0 [22.0-32.0] ??MMOL/L ? TOTAL CO2 ? 25.7 ?? [8-16] ?MMOL/L ? ANION GAP ? 15 Footnotes and Symbols: L = Low ?? CONTINUED ?Page: ?? 1 Patient No: [id number] ? [facility] Patient Name: VILLA ALSTON ?[facility] Age: 69 YRS ?: 1945 ?Sex:M ?[address] )[id number] ?? Adm Dt: 12/08/2014 ?[place] ??[address] Created: 02/08/2015 ??0249 ?? Pt. Type: D ? Discharge Dt: 12/08/2014 ? Pathologists: Brooklyn Ortiz MD Admit Attend Dr: SPARKLE COLINDRES MD ? GENERAL CHEMISTRY ?Collection Date: ?12/08/14 ?Collection Time: ?1020 ? Ref Range: ?? Units: ??[70-199] ?? MG/DL ?GLUCOSE ?120 f [280-301] ?? MOSM/K ? CALCULATED OSMO ?286 [8.6-10.2] ??MG/DL ?CALCIUM ?9.0 [8.0-25.0] ??MG/DL ?BUN ? 18.2 ??[10-20] ? B/C RATIO ? 21 H [0.70-1.30] ??MG/DL ?CREATININE ?0.88 f ?12/08/14 1020 eGFR: >70 ml/min/1.73sq.m if non -[place]. eGFR: >70 ml/min/1.73sq.m if -[place]. AVE GFR for 60-69 yr. age group: ??85 ml/min/173sq.m Calculated using MDRD Equation FOOTNOTE ADDED ON ?? 12/08/14 ?? AT 1152 BY 999 Footnotes and Symbols: H = High, f = Footnote GLUCOSE (08/13/14 -- Current) Note:The glucose is assumed non fasting Fastin-99 mg/dl Random: 70-199 mg/dl Either a fasting glucose > 126 mg/dL or a random glucose > 200 mg/dL plus symptoms is diagnostic of diabetes when confirmed on another day. Fasting values > 100 mg/dl but < 125 mg/dL are diagnostic of impaired fasting glucose. ?? END OF CHART ? Page: ?? 2 us Historical Provider LAB BLOOD ORDERABLES Iwona l Result HISTORICAL RESULTS documented in this encounter Visit Diagnoses Diagnosis Polycythemia vera (HCC) documented in this encounter Care Teams Sheet Metal Mechanic Relationship Specialty Start Date End Date Wesley Em MD PCP - General 10/12/12 08/31/16 documented as of this encounter
--- OUTSIDE RECORDS SUMMARY | 2024-06-18 18:17 | XMS_ITS | Encounter Summary ---
Author Organization [facility] Healthcare Address [address] [place] [address] Care Team Providers Care Channel Rougher Name Role Phone Wesley Em MD Primary Care Provider [phone] Encounter Details Date Type Department Care Team (Latest Contact Info) Description 09/26/2016 9:48 AM CDT - 09/26/2016 11:59 PM CDT Hospital Encounter [facility] OP INTERIM Discharge Disposition: Discharge to home or self care Social History Tobacco Use Types Packs/Day Years Used Date Smoking Tobacco: Former Alcohol Use Standard Drinks/Week Comments No 0 (1 standard drink = 0.6 oz pur e alcohol) Sex and Gender Information Value Date Recorded Sex Assigned at Not on file Legal Sex 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 RESULT: One view of the abdomen demonstrates a nonobstructive bowel gas pattern. Bilateral internal ureteral stents are present. ??Calculi overlie the urinary bladder. ??Possible calculi are seen in the upper pole of the left kidney. IMPRESSION: 1. BILATERAL INTERNAL URETERAL STENTS IN PLACE. 2. CALCIFICATIONS OVERLYING THE URINARY BLADDER POSSIBILITY REPRESENTING BLADDER CALCULI. 3. CALCIFICATIONS OVERLYING THE UPPER POLE OF THE LEFT KIDNEY POSSIBLY REPRESENTING INTERNAL CALCULI. Interpreting Physician: ??DR MARCELO ALEJO M.D. ??Read on: ??Sep 26 2016 2:15P Transcribed by: ??beena ??On: Sep 26 2016 ??8:44P Approved Electronically by: ??SAPNA Mcginnis, DR ROBERTSON ??on: ??Sep 28 2016 7:13A Attending: ??SANCHEZ BUTTERFIELD Requesting: ??DR SANCHEZ BUTTERFIELD Requesting Fax: ??[phone] Attending Fax: ??-- Attending ID: ??[id number] Requesting ID: ??[id number] Report To 1 ID: ??[id number] Report To 1 Name: ??SANCHEZ BUTTERFIELD Report To 1 FAX: ??-- NextGen Order #: ?? Procedure Note Miscellaneous, Notinfile / ProviderWilian MD - 11/23/2016 vm XR [id number] Acc#: [id number] DATE OF EXAM: Sep 26 2016 CLINICAL HISTORY: Renal calculi status post lithotripsy. RESULT: One view of the abdomen demonstrates a nonobstructive bowel gas pattern.Bilateral internal ureteral stents are present. Calculi overlie theurinary bladder. Possible calculi are seen in the upper pole of the leftkidney. IMPRESSION: 1. BILATERAL INTERNAL URETERAL STENTS IN PLACE. 2. CALCIFICATIONS OVERLYING THE URINARY BLADDER POSSIBILITY REPRESENTINGBLADDER CALCULI. 3. CALCIFICATIONS OVERLYING THE UPPER POLE OF THE LEFT KIDNEY POSSIBLYREPRESENTING INTERNAL CALCULI. Interpreting Physician: DR MARCELO ALEJO M.D. Read on: Sep 26 20162:15P Transcribed by: beena On: Sep 26 2016 8:44P Approved Electronically by: SAPNA Mcginnis, DR ROBERTSON on: Sep 28 [id number] Attending: SANCHEZ BUTTERFIELD Requesting: DR SANCHEZ BUTTERFIELD Requesting Attending Fax: -- Attending ID: [id number] Requesting ID: [id number] Report To 1 ID: [id number] Report To 1 Name: SANCHEZ BUTTERFIELD Report To 1 FAX: -- NextGen Order #: us Not In File Miscellaneous IMG XR PROCEDURES Iwona l Result documented in this encounter Visit Diagnoses Not on filedocumented in this encounter Care Teams Channel Rougher Relationship Specialty Start Date End Date Wesley Em MD PCP - General 09/01/16 09/29/16 documented as of this encounter
--- OUTSIDE RECORDS SUMMARY | 2024-06-18 18:17 | XMS_ITS | Encounter Summary ---
Author Organization [facility] Healthcare Address [address] [place] [address] Care Team Providers Care Assistant Loan Processor Name Role Phone Gene Em MD Primary Care Provider [phone] Encounter Details Date Type Department Care Team (Late st Contact Info) Description 02/24/2015 12:57 PM CDT - 02/24/2015 11:59 PM CDT Hospital Encounter [facility]INCONV Gene Em MD [address] [place] [address] Screening for malignant neoplasm of respiratory organ; Cerebral artery occlusion with cerebral infarction (CMS/HCC); Coronary atherosclerosis; Aortic ectasia (CMS/HCC); Atherosclerosis of aorta (CMS/HCC); Congenital cystic kidney disease; Cardiomegaly; Solitary pulmonary nodule Social History Tobacco Use Types Packs/Day Years Used Date Smoking Tobacco: Former Alcohol Use Standard Drinks/Week Comments No 0 (1 standard drink = 0.6 oz pur e alcohol) Sex and Gender Information Value Date Recorded Sex Assigned at Not on file 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 DIAGNOSIS: ??RESP CA SCREENING CLINICAL HISTORY: ?? RESP CA SCREENING RESULT: \ CT LUNG CANCER SCREENING HISTORY Smoked one pack a day for 54 years. Quit 2008. Noncontrast CT chest obtained with low-dose screening protocol and with reconstruction at 3 mm thickness. A 6 x 4 mm irregular part solid or ground glass lingular subpleural nodular density is seen on image 59 series 3 table position -1084 with mean size of 5 mm. Based on the coronal image 28 series 4 this appears to be contiguous with an area of epicardial fat and likely is due to partial volume averaging effect, subpleural atelectasis per ACR LUNG-RADS part solid nodule less than 6 mm consider category 2 and continue annual screening low dose CT 12 months. ??This has a mean diameter of 5 mm. No discrete pulmonary nodule, consolidation or effusion is otherwise seen. The large central airways are patent. The heart is upper normal in size. No pericardial effusion is seen. Marked coronary artery calcification is seen especially along the LAD, septal branches, right coronary and circumflex. No enlarged mediastinal nodes are seen. There are no axillary or subclavicular nodes. The imaged thyroid is grossly unremarkable but incompletely seen. There may be a 2.2 cm left renal parapelvic cyst, though incompletely evaluated on this examination with increased imaged noise due to low-dose technique and only partially seen. Normal caliber mildly ectatic aortic arch with moderate calcification extending to the descending aorta is seen. Anterolateral mid lower thoracic spine osteophytes are seen with mild dextroscoliosis. Mild eventration left hemidiaphragm is present. IMPRESSION: ?\ 1. ??LINGULAR PART SOLID 5 MM NODULE. ??NO OTHER NODULE SEEN. CONTINUE LOW DOSE SCREENING CT IN 12 MONTHS. 2. ??[id number] THREE-VESSEL CORONARY ARTERY CALCIFICATION. 3. ??NO ENLARGED MEDIASTINAL OR HILAR NODES. 4. ??MODERATELY ECTATIC CALCIFIED AORTA AND MARKED THREE-VESSEL CORONARY ARTERY CALCIFICATION. 5. ??NO ENLARGED MEDIASTINAL NODES. 6. ??QUERY LEFT PARAPELVIC RENAL CYST. ? GRANT ADMINISTRATOR: ??DM2 TRANSCRIBE DATE/TIME: ??Feb 24 2015 ??9:02P RADIOLOGIST: ??TANYA HODGE M.D. ??READ ON: ??Feb 24 2015 ??4:48P ORDERING DR: GENE EM M.D. ? THIS DOCUMENT HAS BEEN ELECTRONICALLY SIGNED BY: ??TANYA HODGE M.D. ??ON: ??Feb 26 2015 10:54A Attending: ??AARON, ??GENE Requesting: ??AARON, ??GENE Requesting Fax: ??[phone] Attending Fax: ??[phone] Attending ID: ??[id number] Requesting ID: ??[id number] Report To 1 ID: ?? Report To 1 Name: ??, ?? Report To 1 FAX: ??-- Report To 2 ID: ?? Report To 2 Name: ??, ?? Report To 2 FAX: ??-- NextGen Order #: ?? Procedure Note Provider, Historical, MD - 10/22/2016 DATE OF EXAM: Feb 24 2015 2:28PM Acc#: [id number] ECT 0363 - CT Lung Cancer Screening DIAGNOSIS: RESP CA SCREENING CLINICAL HISTORY: RESP CA SCREENING RESULT: \ CT LUNG CANCER SCREENING HISTORY Smoked one pack a day for 54 years. Quit 2008. Noncontrast CT chest obtained with low-dose screening protocol and with reconstruction at 3 mm thickness. A 6 x 4 mm irregular part solid or ground glass lingular subpleural nodular density is seen on image 59 series 3 table position -1084 with mean size of 5 mm. Based on the coronal image 28 series 4 this appears to be contiguous with an area of epicardial fat and likely is due to partial volume averaging effect, subpleural atelectasis per ACR LUNG-RADS part solid nodule less than 6 mm consider category 2 and continue annual screening low dose CT 12 months. This has a mean diameter of 5 mm. No discrete pulmonary nodule, consolidation or effusion is otherwise seen. The large central airways are patent. The heart is upper normal in size. No pericardial effusion is seen. Marked coronary artery calcification is seen especially along the LAD, septal branches, right coronary and circumflex. No enlarged mediastinal nodes are seen. There are no axillary or subclavicular nodes. The imaged thyroid is grossly unremarkable but incompletely seen. There may be a 2.2 cm left renal parapelvic cyst, though incompletely evaluated on this examination with increased imaged noise due to low-dose technique and only partially seen. Normal caliber mildly ectatic aortic arch with moderate calcification extending to the descending aorta is seen. Anterolateral mid lower thoracic spine osteophytes are seen with mild dextroscoliosis. Mild eventration left hemidiaphragm is present. IMPRESSION: \ 1. LINGULAR PART SOLID 5 MM NODULE. NO OTHER NODULE SEEN. CONTINUE LOW DOSE SCREENING CT IN 12 MONTHS. 2. [id number] THREE-VESSEL CORONARY ARTERY CALCIFICATION. 3. NO ENLARGED MEDIASTINAL OR HILAR NODES. 4. MODERATELY ECTATIC CALCIFIED AORTA AND MARKED THREE-VESSEL CORONARY ARTERY CALCIFICATION. 5. NO ENLARGED MEDIASTINAL NODES. 6. QUERY LEFT PARAPELVIC RENAL CYST. GRANT ADMINISTRATOR: MAY TRANSCRIBE DATE/TIME: Feb 24 2015 9:02P RADIOLOGIST: TANYA HODGE M.D. READ ON: Feb 24 2015 4:48P ORDERING DR: GENE EM M.D. THIS DOCUMENT HAS BEEN ELECTRONICALLY SIGNED BY: TANYA HODGE M.D. ON: Feb 26 2015 10:54A Attending: GENE EM Requesting: GENE EM Requesting Attending Attending ID: [id number] Requesting ID: [id number] Report To 1 ID: Report To 1 Name: , Report To 1 FAX: -- Report To 2 ID: Report To 2 Name: , Report To 2 FAX: -- NextGen Order #: us Historical Provider IMG CT PROCEDURES Final R esult * Transthoracic Echo Complete W Doppler/CF WO Contrast (02/24/2015 12:00 AM CDT) Anatomical Region Laterality Modality Ultrasound Narrative 02/24/2015 12:00 AM CDT Ordered by an unspecified provider. Procedure Note ProviderWilian MD - 08/29/2018 Ordered by an unspecified provider. 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
--- OUTSIDE RECORDS SUMMARY | 2024-06-18 18:17 | XMS_ITS | Encounter Summary ---
Author Organization [facility] Healthcare Address [address] [place] [address] Care Team Providers Care Owner Oral Surgeon Name Role Phone Wesley Em MD Primary Care Provider [phone] Encounter Details Date Type Department Care Team (Late st Contact Info) Description 03/11/2016 7:08 AM CDT - 03/11/2016 11:59 PM CDT Hospital Encounter CH CLINCONV Wesley Em MD [address] [place] [id number] Type 2 diabetes mellitus without complications (CMS/[facility]) Social History Tobacco Use Types Packs/Day Years Used Date Smoking Tobacco: Former Alcohol Use Standard Drinks/Week Comments No 0 (1 standard drink = 0.6 oz pur e alcohol) Sex and Gender Information Value Date Recorded Sex Assigned at Not on file 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
--- OUTSIDE RECORDS SUMMARY | 2024-06-18 18:17 | XMS_ITS | Encounter Summary ---
Author Organization [facility] Healthcare Address [address] [place] [address] Care Team Providers Care Senior Sales Director Name Role Phone Wesley Em MD Primary Care Provider [phone] Encounter Details Date Type Department Care Team (Late st Contact Info) Description 07/27/2016 8:35 AM PLUCK SEPARATOR - 07/27/2016 12:00 PM [facility] Hospital Encounter [facility] Albert Sky MD [address] [phone] Gastro-esophageal reflux disease with esophagitis; Gastritis without bleeding; Essential (primary) hypertension; Atherosclerotic heart disease of [place] coronary artery without angina pectoris; Presence of coronary angioplasty implant and graft; Type 2 diabetes mellitus without complications ([facility]/HCC); Osteoarthritis; Secondary polycythemia; Cigarette nicotine dependence, uncomplicated Social History Tobacco Use Types Packs/Day Years Used Date Smoking Tobacco: Former Alcohol Use Standard Drinks/Week Comments No 0 (1 standard drink = 0.6 oz pur e alcohol) Sex and Gender Information Value Date Recorded Sex Assigned at Not on file Legal 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 Male 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 Gender Identity Not on file Sexual [...] Procedure Name Priority Date/Time Associated Diagnosis Comments HELICOBACTER PYLORI UREASE SCREEN, CDR Routine 07/27/2016 11:15 AM PLUCK SEPARATOR BLOOD GLUCOSE, POC Routine 07/27/2016 9: 17 AM PLUCK SEPARATOR EGD IMAGES 07/27/2016 DISCHARGE LABORATORY CUMULATIVE REPORT 07/27/2016 SURGICAL PATHOLOGY 07/27/2016 documented in this encounter Results * Helicobacter pylori urease screen (07/27/2016 11:15 AM PLUCK SEPARATOR) Biopsy (Unknown) 07/27/2016 11:15 AM PLUCK SEPARATOR 07/27/2016 1:31 PM PLUCK SEPARATOR Narrative CDR HISTORICAL RESULTS - 07/28/2016 12:11 PM PLUCK SEPARATOR Negative Emeli Test us Historical Provider LAB MICROBIOLOGY - GENERA L ORDERABLES Final Result CDR HISTORICAL RESULTS * (ABNORMAL) Blood glucose, POC (07/27/2016 9:17 AM PLUCK SEPARATOR) Glucose, POC, bld 101(H) 71 - 98 mg/dl CDR HISTORICAL RESULTS Blood specimen (specimen) 07/27/2016 9:17 AM PLUCK SEPARATOR Historical Provider LAB BLOOD ORDERABLES Iwona l Result CDR HISTORICAL RESULTS * Surgical pathology (07/27/2016) Narrative 07/27/2016 Ordered by an unspecified provider. [facility] Provider MD LAB PATHOLOGY ORDERABLES Final Result * DISCHARGE LABORATORY CUMULATIVE REPORT (07/27/2016) Narrative 07/27/2016 Ordered by an unspecified provider. [facility] Provider LAB BLOOD ORDERABLES Iwona l Result * EGD IMAGES (07/27/2016) Anatomical Region Laterality Modality Other Narrative 07/27/2016 Ordered by an unspecified provider. [facility] Provider GI PROCEDURE ORDERABLES F inal Result documented in this encounter Visit Diagnoses Diagnosis Gastro-esophageal reflux disease with esophagitis Reflux esophagitis Gastritis without bleeding Essential (primary) hypertension Unspecified essential hypertension Atherosclerotic heart disease of [place] coronary artery without angina pectoris Presence of coronary angioplasty implant and graft Type 2 diabetes mellitus without complications (CMS/HCC) (HCC) Osteoarthritis Osteoarthrosis, unspecified whether generalized or localized, unspecified site Secondary polycythemia Polycythemia, secondary Cigarette nicotine dependence, uncomplicated documented in this encounter Care Teams Senior Sales Director Relationship Specialty Start Date End Date Wesley Em MD PCP - General 10/12/12 08/31/16 documented as of this encounter
--- OUTSIDE RECORDS SUMMARY | 2024-06-18 18:17 | XMS_ITS | Encounter Summary ---
Author Organization [facility] Healthcare Address [address] [place] [address] Care Team Providers Care Basting Cleaner Name Role Phone Wesley Em MD Primary Care Provider [phone] Encounter Details Date Type Department Care Team (Late st Contact Info) Description 09/09/2015 8:00 AM PUBLIC RELATIONS ANALYST - 09/09/2015 11:59 PM [facility] Hospital Encounter CH CLINCONV Wesley Em MD [address] [place] [id number] Atherosclerotic heart disease of [place] coronary artery without angina pectoris; Disorder of prostate Social History Tobacco Use Types Packs/Day Years Used Date Smoking Tobacco: Former Alcohol Use Standard Drinks/Week Comments No 0 (1 standard drink = 0.6 oz pur e alcohol) Sex and Gender Information Value Date Recorded Sex Assigned at Not on file Legal Sex Male 6:00 PM PUBLIC RELATIONS ANALYST Gender Identity Not on file Sexual [...] Date/Time Associated Diagnosis Comments URINE MICROBIOLOGY Routine 09/09/2015 12 :00 AM PUBLIC RELATIONS ANALYST documented in this encounter Results * Urine Microbiology (09/09/2015 12:00 AM PUBLIC RELATIONS ANALYST) 09/09/2015 Narrative HISTORICAL RESULTS - 09/12/2015 4:44 PM PUBLIC RELATIONS ANALYST [facility] ?Patient Name: ?VILLA ALSTON SR J ?Med. Rec#: ?? [id number] ?Pt. Acct.#: ??[id number] ?Birthdate: ?? 1945 ?Age / Sex: ?? 69Y / M ?Location: ?[facility] (Laborato ?Admit Date: ??09/07/2015 ?Discharge Date: ? 09/07/2015 ?Doctor: ?Patient Type: ?CH Ancillary - Insur Culture, Urine ? Collected: 09/09/2015 08:00 Specimen: Urine ?? Specimen Source: Clean Voided Specimen Status: Final ??Last Update: 09/12/2015 13:44 Organism ?? Greater than 100,000 cfu/ml of ?? Morganella morganii ?$$'s REPRESENT ?- ?IN-PATIENT COST ? - ?- ?Ampicillin ? $$ >16 ?R ?Aztreonam ?$$$$ <=2 ?S ?Cefazolin ? $ >16 ?R ?Ceftriaxone ? $ <=1 ?S ?Cefepime ? $$ <=1 ?S ?Gentamicin ?$ <=2 ?S ?Tobramycin ?$ <=2 ?S ?Tetracycline ?$ <=2 ?R ?Ciprofloxacin ? $ <=0.5 ?S ?Nitrofurantoin ?$ 64 ? R ?Trimeth/Sulfa ? $ ?S ? <=0.5/9.5 ?Amoxicillin/Clav ??$ >16/8 ?R ?Pip/Tazo ?$$$ <=2/4 ?S Organism ?? 10,000 - 50,000 cfu/ml of ?? Escherichia coli ?$$'s REPRESENT ?- ?IN-PATIENT COST ? - ?- ?Ampicillin ? $$ >16 ?R ?Aztreonam ?$$$$ <=2 ?S ?Cefazolin ? $ <=1 ?S ?Gentamicin ?$ <=2 ?S ?Tobramycin ?$ <=2 ?S ?Tetracycline ?$ <=2 ?S ?Ciprofloxacin ? $ <=0.5 ?S ?Nitrofurantoin ?$ <=16 ? S ?Trimeth/Sulfa ? $ ?S ? <=0.5/9.5 ?Amoxicillin/Clav ??$ 16/8 ? I ?Pip/Tazo ?$$$ <=2/4 ?S Organism ?? 10,000 - 50,000 cfu/ml of ?? multiple Gram positive organisms us Historical Provider LAB MICROBIOLOGY - GENERA L ORDERABLES Final Result HISTORICAL RESULTS documented in this encounter Visit Diagnoses Diagnosis Atherosclerotic heart disease of [place] coronary artery without angina pectoris Disorder of prostate Unspecified disorder of prostate documented in this encounter Care Teams Basting Cleaner Relationship Specialty Start Date End Date Wesley Em MD PCP - General 10/12/12 08/31/16 documented as of this encounter
--- OUTSIDE RECORDS SUMMARY | 2024-06-18 18:17 | XMS_ITS | Encounter Summary ---
Author Organization [facility] Healthcare Address [address] [place] [address] Care Team Providers Care Camera Repair Technician Name Role Phone Wesley Em MD Primary Care Provider [phone] Encounter Details Date Type Department Care Team (Late st Contact Info) Description 12/16/2014 2:54 PM CDT - 12/16/2014 11:59 PM CDT Hospital Encounter CH CLINCONV Wesley Em MD [address] [place] [phone] Essential hypertension; Dementia without behavioral disturbance (HCC) Social History Tobacco Use Types Packs/Day Years Used Date Smoking Tobacco: Former Alcohol Use Standard Drinks/Week Comments No 0 (1 standard drink = 0.6 oz pur e alcohol) Sex and Gender Information Value Date Recorded Sex Assigned at Not on file 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
--- OUTSIDE RECORDS SUMMARY | 2024-06-18 18:17 | XMS_ITS | Encounter Summary ---
Author Organization [facility] Healthcare Address [address] [place] [address] Care Team Providers Care Fish Rod Maker Name Role Phone Wesley Em MD Primary Care Provider [phone] Encounter Details Date Type Department Care Team (Latest Contact Info) Description 09/15/2016 1:37 PM CDT Hospital Encounter [facility] OP Simon Bucio MD [address] [address] Encounter for preprocedural laboratory examination; Calculus of kidney; Encounter for preprocedural cardiovascular examination; Abnormal electrocardiogram Social History Tobacco Use Types Packs/Day Years Used Date Smoking Tobacco: Former Alcohol Use Standard Drinks/Week Comments No 0 (1 standard drink = 0.6 oz pur e alcohol) Sex and Gender Information Value Date Recorded Sex Assigned at Not on file 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 Gender Identity Not on file Sexual [...] Procedure Name Priority Date/Time Associated Diagnosis Comments URINALYSIS, MACRO AND MICRO Routine 09/15/2016 3:10 PM CDT CBC WITH AUTO DIFFERENTIAL Routine 09/15/2016 2:49 PM CDT BASIC METABOLIC PANEL Routine 09/15/2016 2:49 PM CDT documented in this encounter Results * (ABNORMAL) Urinalysis, macro and micro (09/15/2016 3:10 PM CDT) Ur Collection Type CLEAN CATCH Urine Color YELLOW YELLOW Urine Clarity CLEAR CLEAR Urine Glucose (UA) NORMAL NORMAL mg/dL Urine Bilirubin NEGATIVE NEGATIVE mg/dl Urine Ketones NEGATIVE NEGATIVE mg/dL Ur Specific [place] 1.019 1.005 - 1.025 Urine Blood NEGATIVE NEGATIVE mg/dl Urine pH 6.0 5.0 - 8.0 09/15/2016 4:02 PM CDT [facility] HISTORICAL RESULTS Urine Protein 30(H) NEGATIVE mg/dL 09/15/2016 4:02 PM T [facility] HISTORICAL RESULTS Urine Urobilinogen NORMAL NORMAL mg/dL 09/15/2016 4:02 PM T [facility] HISTORICAL RESULTS Urine Nitrite NEGATIVE NEGATIVE 09/15/2016 4:02 PM T [facility] HISTORICAL RESULTS Ur Leukocyte Esterase 25(H) NEGATIVE [place]/ul 09/15/2016 4:02 PM T [facility] HISTORICAL RESULTS Ur Microscopic Review Indicated or Ordered 09/15/2016 4:02 PM T [facility] HISTORICAL RESULTS Urine RBC 4 0 - 2 /HPF 09/15/2016 4:02 PM T [facility] HISTORICAL RESULTS Urine WBC 12 0 - 2 /HPF 09/15/2016 4:02 PM T [facility] HISTORICAL RESULTS Urine Mucus RARE /LPF Ur Squamous Epith Cells Rare /HPF 09/15/2016 3:10 PM CDT 09/15/2016 3:55 PM CDT Narrative [facility] HISTORICAL RESULTS - 09/15/2016 4:02 PM CDT us Simon Bucio MD LAB URINE ORDERABLES F inal Result [facility] HISTORICAL RESULTS * CBC with auto differential (09/15/2016 2:49 PM CDT) WBC 5.8 4.6 - 10.2 x10 3/ul 09/15/2016 2:58 PM CDT [facility] HISTORICAL RESULTS RBC 5.16 4.11 - 5.71 x10 6/ul 09/15/2016 2:58 PM CDT [facility] HISTORICAL RESULTS Hemoglobin 14.4 13.0 - 17.0 g/dl 09/15/2016 2:58 PM CDT [facility] HISTORICAL RESULTS Hct 42.7 38.2 - 48.5 % 09/15/2016 2:58 PM T [facility] HISTORICAL RESULTS MCV 82.8 80.0 - 97.0 fl MCH 27.9 27.0 - 31.2 pg MCHC 33.7 31.8 - 35.4 g/dl RDW 13.7 11.6 - 14.8 % Plt Count 184 124 - 400 x10 3/ul MPV 10.4 7.4 - 10.4 fl Neut % 56.3 37.0 - 85.0 % Immature Gran % 0.3 0.0 - 3.0 % Lymph % 26.6 5.0 - 45.0 % [place] % 11.0 3.0 - 15.0 % Eos % 4.2 0.0 - 7.0 % Baso % 1.6 0.0 - 2.0 % Absolute Neuts (auto) 3.2 1.7 - 8.7 x10 3/ul Immature Gran # 0.0 0.0 - 0.3 x10 3/ul Absolute Lymphs (auto) 1.5 0.2 - 4.6 x10 3/ul Absolute Monos (auto) 0.6 0.1 - 1.5 x10 3/ul Absolute Eos (auto) 0.2 0.0 - 0.7 x10 3/ul 09/15/2016 2:58 PM T [facility] HISTORICAL RESULTS Absolute Basos (auto) 0.1 0.0 - 0.2 x10 3/ul 09/15/2016 2:58 PM T [facility] HISTORICAL RESULTS 09/15/2016 2:49 PM CDT 09/15/2016 2:54 PM CDT us Simon Bucio MD LAB BLOOD ORDERABLES F inal Result [facility] HISTORICAL RESULTS * (ABNORMAL) Basic metabolic panel (09/15/2016 2:49 PM CDT) Sodium 143 135 - 145 mmol/L 09/15/2016 3:20 PM T [facility] HISTORICAL RESULTS Potassium 4.2 3.3 - 5.1 mmol/L 09/15/2016 3:20 PM T [facility] HISTORICAL RESULTS Chloride 105 96 - 108 mmol/L 09/15/2016 3:20 PM T [facility] HISTORICAL RESULTS Carbon Dioxide 26 22 - 32 mmol/L 09/15/2016 3:20 PM T [facility] HISTORICAL RESULTS Anion Gap 12 7 - 16 Glucose 104(H) 70 - 100 mg/dL 09/15/2016 3:20 PM T [facility] HISTORICAL RESULTS BUN 20 8 - 23 mg/dL Creatinine 1.2 0.5 - 1.3 mg/dL Comment: NOTE: Estimated GFR (Cockroft-Gault) will NOT be calculated unless patient Height and Weight were entered. Also, Kidney Disease Stage (GFR) and Estimated GFR (Cockroft-Gault) will NOT be calculated if Creatinine result is <0.2. Kidney Disease Stage 64 mL/MIN Comment: NOTE; ??The GFR is an estimated value using the creatinine, sex, age, and race of the patient. THE Estimated Kidney Disease GFR is validated for AGES 18-70 YEARS STAGE ?mL/Min ?DESCRIPTION ??1 ?90 mL/min or more ?Normal or elevated GFR ??2 ? 60-89 mL/min ?Mildly decreased GFR ??3 ? 30-59 mL/min ?Moderately decreased GFR ??4 ? 15-29 mL/min ?Severely decreased GFR ??5 ? <15 mL/min ? Kidney failure or on dialysis @ Calcium 9.2 8.8 - 10.2 mg/dL 09/15/2016 3:20 PM CDT [facility] HISTORICAL RESULTS 09/15/2016 2:49 PM CDT 09/15/2016 2:54 PM CDT us Simon Bucio MD LAB BLOOD ORDERABLES F inal Result [facility] HISTORICAL RESULTS documented in this encounter Visit Diagnoses Diagnosis Encounter for preprocedural laboratory examination Calculus of kidney Encounter for preprocedural cardiovascular examination Abnormal electrocardiogram Nonspecific abnormal electrocardiogram (ECG) (EKG) documented in this encounter Care Teams Fish Rod Maker Relationship Specialty Start Date End Date Wesley Em MD PCP - General 09/01/16 09/29/16 documented as of this encounter
--- OUTSIDE RECORDS SUMMARY | 2024-06-18 18:17 | XMS_ITS | Encounter Summary ---
Author Organization [facility] Healthcare Address [address] [place] [address] Care Team Providers Care Deck Lid Fitter Name Role Phone Wesley Em MD Primary Care Provider [phone] Encounter Details Date Type Department Care Team (Late st Contact Info) Description 01/07/2016 8:00 AM CDT - 01/07/2016 11:59 PM CDT Hospital Encounter [facility] Hoskins, Roger Steele MD [address] [place] [id number] Polycythemia vera (CMS/HCC) Social History Tobacco Use Types Packs/Day Years Used Date Smoking Tobacco: Former Alcohol Use Standard Drinks/Week Comments No 0 (1 standard drink = 0.6 oz pur e alcohol) Sex and Gender Information Value Date Recorded Sex Assigned at Not on file 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
--- OUTSIDE RECORDS SUMMARY | 2024-06-18 18:17 | XMS_ITS | Encounter Summary ---
Author Organization [facility] Healthcare Address [address] [place] [address] Care Team Providers Care Smooth And Burr Worker Composites Name Role Phone Wesley Em MD Primary Care Provider [phone] Encounter Details Date Type Department Care Team (Late st Contact Info) Description 10/13/2015 10:55 AM CDT - 10/13/2015 11:59 PM CDT Hospital Encounter [facility] CLINCON[facility] Wesley Em MD [address] [place] [address] Elevated prostate specific antigen (PSA) Social History Tobacco Use Types Packs/Day Years Used Date Smoking Tobacco: Former Alcohol Use Standard Drinks/Week Comments No 0 (1 standard drink = 0.6 oz pur e alcohol) Sex and Gender Information Value Date Recorded Sex Assigned at Not on file 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
--- OUTSIDE RECORDS SUMMARY | 2024-06-18 18:18 | XMS_ITS | Encounter Summary ---
Author Organization [facility] Facility Care Team Providers Care Auto Damage Estimator Name Role Phone Wesley Em MD Primary Care Provider [phone] Encounter Details Date Type Department Care Team (Latest Contact Info) Description 10/13/2010 10:15 AM CDT - 10/16/2010 2:00 PM CDT Hospital Encounter [facility] CLINCONV Wesley Pyle Jr., MD [address] [facility] [address] [place] [address] Osteoarthrosis involving lower leg; Essential hypertension; Other and unspecified hyperlipidemia; Other specified chronic obstructive airways disease; Esophageal reflux; Type 2 or unspecified type diabetes mellitus; Hypertrophy of prostate without urinary obstruction and other lower urinary tract symptoms (LUTS); Personal history of tobacco use, presenting hazards to health Social History Tobacco Use Types Packs/Day Years Used Date Smoking Tobacco: Never Assessed Sex and Gender Information Value Date Recorded Sex Assigned at Not on file 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 Gender Identity Not on file Sexual Orientation Straight 01/23/2021 10 :16 PM CDT documented as of this encounter Medications at Time of Discharge aspirin 81 mg tablet Take one by mouth one time per day 0 0 06/27/2008 tamsulosin (FLOMAX) 0.4 mg capsule,extended release 24hr TAKE ONE CAPSULE BY MOUTH EVERY DAY 90 3 03/11/2008 12/14/2016 documented as of this encounter Plan of Treatment Not on file documented as of this encounter Visit Diagnoses Diagnosis Osteoarthrosis involving lower leg Essential hypertension Unspecified essential hypertension Other and unspecified hyperlipidemia Other specified chronic obstructive airways disease Esophageal reflux Type 2 or unspecified type diabetes mellitus Hypertrophy of prostate without urinary obstruction and other lower urinary tract symptoms (LUTS) Personal history of tobacco use, presenting hazards to health documented in this encounter Care Teams Auto Damage Estimator Relationship Specialty Start Date End Date Wesley Em MD PCP - General 03/11/08 10/11/12 documented as of this encounter
--- OUTSIDE RECORDS SUMMARY | 2024-06-18 18:18 | XMS_ITS | Encounter Summary ---
Author Organization [facility] Facility Care Team Providers Care Online Affiliate Marketing Manager Name Role Phone Wesley Em MD Primary Care Provider [phone] Encounter Details Date Type Department Care Team (Latest Contact Info) Description 01/12/2011 5:28 AM CDT - 01/15/2011 1:15 PM CDT Hospital Encounter [facility] CLINCONV Wesley Pyle Jr., MD [address] [facility] [address] [place] [address] Osteoarthrosis involving lower leg; Type 2 or unspecified type diabetes mellitus; Essential hypertension; Other specified chronic obstructive airways disease; Polycythemia vera (HCC); Hypopotassemia; History of allergy to other anti-infective agent; Personal history of tobacco use, presenting hazards to health Social History Tobacco Use Types Packs/Day Years Used Date Smoking Tobacco: Former Alcohol Use Standard Drinks/Week Comments No 0 (1 standard drink = 0.6 oz pur e alcohol) Sex and Gender Information Value Date Recorded Sex Assigned at Not on file 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 Gender Identity Not on file Sexual [...] Visit Diagnoses Diagnosis Osteoarthrosis involving lower leg Type 2 or unspecified type diabetes mellitus Essential hypertension Unspecified essential hypertension Other specified chronic obstructive airways disease Polycythemia vera (HCC) Hypopotassemia History of allergy to other anti-infective agent Personal history of tobacco use, presenting hazards to health documented in this encounter Care Teams Online Affiliate Marketing Manager Relationship Specialty Start Date End Date Wesley Em MD PCP - General 03/11/08 10/11/12 documented as of this encounter
--- OUTSIDE RECORDS SUMMARY | 2024-06-18 18:18 | XMS_ITS | Encounter Summary ---
Author Organization [facility] Healthcare Address [address] [place] [address] Care Team Providers Care Zoology Teacher Name Role Phone Wesley Em MD Primary Care Provider [phone] Encounter Details Date Type Department Care Team (Late st Contact Info) Description 05/26/2007 12:01 AM FELT CEMENTER - 05/26/2007 11:59 PM FELT CEMENTER Hospital Encounter [facility] CLINCON[facility] Wesley Em MD [address] [place] [phone] Social History Tobacco Use Types Packs/Day Years Used Date Smoking Tobacco: Never Assessed Sex and Gender Information Value Date Recorded Sex Assigned at Not on file Legal Sex Male 6:00 PM FELT CEMENTER Gender Identity Not on file Sexual Orientation Straight 01/23/2021 10 :16 PM CDT documented as of this encounter Plan of Treatment Not on file documented as of this encounter Visit Diagnoses Not on filedocumented in this encounter Care Teams Zoology Teacher Relationship Specialty Start Date End Date Wesley Em MD PCP - General 04/24/07 03/10/08 documented as of this encounter
--- OUTSIDE RECORDS SUMMARY | 2024-06-18 18:18 | XMS_ITS | Encounter Summary ---
Author Organization [facility] Healthcare Address [address] [place] [address] Care Team Providers Care Warehouse Director Name Role Phone Wesley Em MD Primary Care Provider [phone] Encounter Details Date Type Department Care Team (Late st Contact Info) Description 06/04/2013 1:09 PM MAILING SPECIALIST - 09/16/2013 11:59 PM CDT Hospital Encounter [facility] Colindres, Sparkle Steele MD [address] [place] [phone] Polycythemia vera (HCC) Social History Tobacco Use Types Packs/Day Years Used Date Smoking Tobacco: Former Alcohol Use Standard Drinks/Week Comments No 0 (1 standard drink = 0.6 oz pur e alcohol) Sex and Gender Information Value Date Recorded Sex Assigned at Not on file Legal Sex Male 6:00 PM MAILING SPECIALIST Gender Identity Not on file Sexual [...] Diagnosis Comments BLOOD CELL COUNT (CBC) Routine 09/16/2013 10:44 AM CDT DISCHARGE LABORATORY CUMULATIVE REPORT Routine 09/16/2013 12:00 AM CDT BLOOD CELL COUNT (CBC) Routine 07/22/2013 11:30 AM MAILING SPECIALIST SERUM BASIC METABOLIC PANEL Routine 06/24/2013 11:20 AM MAILING SPECIALIST BLOOD CELL COUNT (CBC) Routine 06/24/2013 11:20 AM MAILING SPECIALIST SERUM BASIC METABOLIC PANEL Routine 06/04/2013 1:23 PM MAILING SPECIALIST BLOOD CELL COUNT (CBC) Routine 06/04/2013 1:23 PM MAILING SPECIALIST documented in this encounter Results * (ABNORMAL) Blood cell count (CBC) (09/16/2013 10:44 AM CDT) WBC 6.3 4.5 - 10.6 K/cumm HISTORICAL RESULTS RBC 5.35 4.00 - 6.01 M/cumm HISTORICAL RESULTS Hgb 14.8 11.0 - 18.1 g/dl HISTORICAL RESULTS Hct 45.0 35.0 - 60.0 % HISTORICAL RESULTS MCV 84.1 80.0 - 100.0 fl HISTORICAL RESULTS MCH 27.7 27.0 - 31.0 pg HISTORICAL RESULTS MCHC 32.9(L) 33.0 - 37.0 g/dl HISTORICAL RESULTS Rdw 14.9(H) 11.5 - 14.6 % HISTORICAL RESULTS Platelets 255 150 - 400 K/cumm HISTORICAL RESULTS MPV 8.6 7.4 - 10.4 fl HISTORICAL RESULTS Lymphocytes 26.4 20.0 - 50.0 % HISTORICAL RESULTS Monos 11.1 1.0 - 13.0 % HISTORICAL RESULTS Neutrophils 62.5 30.0 - 70.0 % HISTORICAL RESULTS Lymphocytes, abs 1.7 0.9 - 5.3 K/cumm HISTORICAL RESULTS Monocytes, absolute 0.7 0.1 - 1.1 K/cumm HISTORICAL RESULTS Neutrophils, abs 3.9 1.3 - 7.4 K/cumm HISTORICAL RESULTS Blood specimen (specimen) 09/16/2013 10:44 AM CDT us Sparkle Colindres MD LAB BLOOD ORDERABLES Fin al Result HISTORICAL RESULTS * Discharge Laboratory Cumulative Report (09/16/2013 12:00 AM CDT) 09/16/2013 Narrative HISTORICAL RESULTS - 11/17/2013 2:36 AM CDT Patient No: [id number] ? [facility] Patient Name: VILLA ALSTON ?[facility] Healthcare Age: 68 YRS ?: 1945 ?Sex:M ?[email or web address] )[phone] ?? Adm Dt: 06/04/2013 ?[place], [place] ??[address] Created: 11/17/2013 ??0236 ?? Pt. Type: D ? Discharge Dt: 09/16/2013 ? Pathologists: Brooklyn Ortiz MD Admit Attend : SPARKLE COLINDRES MD ? BLOOD CELL COUNTS ?Collection Date: ?09/16/13 ? 07/22/13 ?Collection Time: ?1044 ? 1130 ? Ref Range: ?? Units: [4.50-10.60] /CMM ? WBC X 10^3 ?6.30 ? 5.00 [4.00-6.01] ??/CMM ? RBC X 10^6 ?5.35 ? 4.67 [11.0-18.1] ??G/DL ? HGB ? 14.8 ? 13.1 [35.0-60.0] ??% ?HCT ? 45.0 ? 40.4 [80.0-100.0] FL ? MCV ? 84.1 ? 86.5 [27.0-31.0] ??PG ? MCH ? 27.7 ? 28.1 [33.0-37.0] ??% ?MCHC ?32.9 L ? 32.4 L [11.5-14.6] ??% ?RDW ? 14.9 H ? 12.8 [150-400] ?? /CMM ? PLT X 10^3 ? 255 ?235 [7.4-10.4] ??FL ? MPV ?8.6 ?8.1 [20.0-50.0] ??% ?LYMPH PERCENT ? 26.4 ? 25.9 [1.0-13.0] ??% ?MONO PERCENT ?11.1 ? 11.6 [30.0-70.0] ??% ?GRANULOCYE % ?62.5 ? 62.5 [0.9-5.3] ?? /CMM ? A LYMPH ?1.7 ?1.3 [1.3-7.4] ?? /CMM ? A GRANULOCYTE ?3.9 ?3.1 [0.1-1.1] ?? /CMM ? A MONO ? 0.7 ?0.6 ?Collection Date: ?06/24/13 ? 06/04/13 ?Collection Time: ?1120 ? 1323 ? Ref Range: ?? Units: [4.50-10.60] /CMM ? WBC X 10^3 ?5.80 ? 6.70 [4.00-6.01] ??/CMM ? RBC X 10^6 ?5.14 ? 5.63 [11.0-18.1] ??G/DL ? HGB ? 14.6 ? 16.1 [35.0-60.0] ??% ?HCT ? 44.6 ? 48.8 [80.0-100.0] FL ? MCV ? 86.7 ? 86.6 [27.0-31.0] ??PG ? MCH ? 28.4 ? 28.6 [33.0-37.0] ??% ?MCHC ?32.7 L ? 33.0 [11.5-14.6] ??% ?RDW ? 14.0 ? 13.2 [150-400] ?? /CMM ? PLT X 10^3 ? 226 ?211 [7.4-10.4] ??FL ? MPV ?8.1 ?8.3 [20.0-50.0] ??% ?LYMPH PERCENT ? 24.4 ? 21.6 [1.0-13.0] ??% ?MONO PERCENT ?10.3 ? 11.2 [30.0-70.0] ??% ?GRANULOCYE % ?65.3 ? 67.2 Footnotes and Symbols: L = Low, H = High ?? CONTINUED ?Page: ?? 1 Patient No: [id number] ? [facility] Patient Name: VILLA ALSTON ?[facility] Healthcare Age: 68 YRS ?: 1945 ?Sex:M ?[address] )[phone] ?? Adm Dt: 06/04/2013 ?[place], [place] ??[address] Created: 11/17/2013 ??0236 ?? Pt. Type: D ? Discharge Dt: 09/16/2013 ? Pathologists: Brooklyn Ortiz MD Admit Attend Dr: SPARKLE COLINDRES MD ? BLOOD CELL COUNTS ?Collection Date: ?06/24/13 ? 06/04/13 ?Collection Time: ?1120 ? 1323 ? Ref Range: ?? Units: [0.9-5.3] ?? /CMM ? A LYMPH ?1.4 ?1.4 [1.3-7.4] ?? /CMM ? A GRANULOCYTE ?3.8 ?4.5 [0.1-1.1] ?? /CMM ? A MONO ? 0.6 ?0.8 ? GENERAL CHEMISTRY ?Collection Date: ?06/24/13 ? 06/04/13 ?Collection Time: ?1120 ? 1323 ? Ref Range: ?? Units: [134-143] ?? MMOL/L ? SODIUM ? 137 ?140 [3.4-5.0] ?? MMOL/L ? POTASSIUM ?3.9 ?3.6 [99.0-108.0] MMOL/L ? CHLORIDE ? 103.0 ?105.0 [23.0-32.0] ??MMOL/L ? TOTAL CO2 ? 26.9 ? 26.6 ?? [7-14] ?MMOL/L ? ANION GAP ? 11 ? 12 ??[70-199] ?? MG/DL ?GLUCOSE ?135 f ?149 f [280-301] ?? MOSM/K ? CALCULATED OSMO ?277 L ?284 [8.6-9.8] ?? MG/DL ?CALCIUM ?9.0 ?8.9 [6.0-23.0] ??MG/DL ?BUN ? 17.0 ? 17.0 ??[10-20] ? B/C RATIO ? 18 ? 18 Footnotes and Symbols: L = Low, f = Footnote GLUCOSE (06/04/13 -- Current) Note:The glucose is assumed non fasting Fastin-99 mg/dl Random: 70-199 mg/dl Either a fasting glucose > 126 mg/dL or a random glucose > 200 mg/dL plus symptoms is diagnostic of diabetes when confirmed on another day. Fasting values > 100 mg/dl but < 125 mg/dL are diagnostic of impaired fasting glucose. New reference ranges implemented 05/13/2013. ?? CONTINUED ?Page: ?? 2 Patient No: [id number] ? [facility] Patient Name: VILLA ALSTON ?[facility] Healthcare Age: 68 YRS ?: 1945 ?Sex:M ?[email or web address] )[phone] ?? Adm Dt: 06/04/2013 ?[place], [place] ??[address] Created: 11/17/2013 ??0236 ?? Pt. Type: D ? Discharge Dt: 09/16/2013 ? Pathologists: Brooklyn Ortiz MD Admit DrFela Attend Dr: SPARKLE COLINDRES MD ? GENERAL CHEMISTRY ?Collection Date: ?06/24/13 ? 06/04/13 ?Collection Time: ?1120 ? 1323 ? Ref Range: ?? Units: [0.60-1.30] ??MG/DL ?CREATININE ?0.93 f ? 0.95 f ?06/24/13 1120 eGFR: >70 ml/min/1.73sq.m if non -Czech. eGFR: >70 ml/min/1.73sq.m if -Czech. AVE GFR for 60-69 yr. age group: ??85 ml/min/173sq.m Calculated using MDRD Equation FOOTNOTE ADDED ON ?? 06/24/13 ?? AT 1222 BY 999 ?06/04/13 1323 eGFR: >70 ml/min/1.73sq.m if non -Czech. eGFR: >70 ml/min/1.73sq.m if -Czech. AVE GFR for 60-69 yr. age group: ??85 ml/min/173sq.m Calculated using MDRD Equation FOOTNOTE ADDED ON ?? 06/04/13 ?? AT 1453 BY 999 Footnotes and Symbols: f = Footnote ?? END OF CHART ? Page: ?? 3 us Historical Provider LAB BLOOD ORDERABLES Iwona mackay Result HISTORICAL RESULTS * (ABNORMAL) Blood cell count (CBC) (07/22/2013 11:30 AM MAILING SPECIALIST) WBC 5.0 4.5 - 10.6 K/cumm HISTORICAL RESULTS RBC 4.67 4.00 - 6.01 M/cumm HISTORICAL RESULTS Hgb 13.1 11.0 - 18.1 g/dl HISTORICAL RESULTS Hct 40.4 35.0 - 60.0 % HISTORICAL RESULTS MCV 86.5 80.0 - 100.0 fl HISTORICAL RESULTS MCH 28.1 27.0 - 31.0 pg HISTORICAL RESULTS MCHC 32.4(L) 33.0 - 37.0 g/dl HISTORICAL RESULTS Rdw 12.8 11.5 - 14.6 % HISTORICAL RESULTS Platelets 235 150 - 400 K/cumm HISTORICAL RESULTS MPV 8.1 7.4 - 10.4 fl HISTORICAL RESULTS Lymphocytes 25.9 20.0 - 50.0 % HISTORICAL RESULTS Monos 11.6 1.0 - 13.0 % HISTORICAL RESULTS Neutrophils 62.5 30.0 - 70.0 % HISTORICAL RESULTS Lymphocytes, abs 1.3 0.9 - 5.3 K/cumm HISTORICAL RESULTS Monocytes, absolute 0.6 0.1 - 1.1 K/cumm HISTORICAL RESULTS Neutrophils, abs 3.1 1.3 - 7.4 K/cumm HISTORICAL RESULTS Blood specimen (specimen) 07/22/2013 11:30 AM MAILING SPECIALIST Sparkle Colindres MD LAB BLOOD ORDERABLES Fin al Result HISTORICAL RESULTS * (ABNORMAL) Serum basic metabolic panel (06/24/2013 11:20 AM MAILING SPECIALIST) Pathologist [facility] BUN 17.0 6.0 - 23.0 mg/dl HISTORICAL RESULTS Sodium 137 134 - 143 mmol/L HISTORICAL RESULTS Potassium, sr 3.9 3.4 - 5.0 mmol/L HISTORICAL RESULTS Chloride 103 99 - 108 mmol/L HISTORICAL RESULTS CO2 27 23 - 32 mmol/L HISTORICAL RESULTS Glucose 135 70 - 199 mg/dl HISTORICAL RESULTS Comment: [...] glucose. New reference ranges implemented 05/13/2013. Creatinine 0.93 0.60 - 1.30 mg/dl HISTORICAL RESULTS Comment: eGFR: >70 ml/min/1.73sq.m if non -Czech. eGFR: >70 ml/min/1.73sq.m if -Czech. AVE GFR for 60-69 yr. age group: ??85 ml/min/173sq.m Calculated using MDRD Equation BUN/creat ratio 18 10 - 20 HIST ORICAL RESULTS A. gap 11 7 - 14 mmol/L HISTORICAL RESULTS Osmo, calc 277(L) 280 - 301 mOsm/kg HISTORICAL RESULTS Calcium 9.0 8.6 - 9.8 mg/dl HISTORICAL RESULTS Serum 06/24/2013 11:2 0 AM MAILING SPECIALIST Sparkle Colindres MD LAB BLOOD ORDERABLES Fin al Result HISTORICAL RESULTS * (ABNORMAL) Blood cell count (CBC) (06/24/2013 11:20 AM MAILING SPECIALIST) WBC 5.8 4.5 - 10.6 K/cumm HISTORICAL RESULTS RBC 5.14 4.00 - 6.01 M/cumm HISTORICAL RESULTS Hgb 14.6 11.0 - 18.1 g/dl HISTORICAL RESULTS Hct 44.6 35.0 - 60.0 % HISTORICAL RESULTS MCV 86.7 80.0 - 100.0 fl HISTORICAL RESULTS MCH 28.4 27.0 - 31.0 pg HISTORICAL RESULTS MCHC 32.7(L) 33.0 - 37.0 g/dl HISTORICAL RESULTS Rdw 14.0 11.5 - 14.6 % HISTORICAL RESULTS Platelets 226 150 - 400 K/cumm HISTORICAL RESULTS MPV 8.1 7.4 - 10.4 fl HISTORICAL RESULTS Lymphocytes 24.4 20.0 - 50.0 % HISTORICAL RESULTS Monos 10.3 1.0 - 13.0 % HISTORICAL RESULTS Neutrophils 65.3 30.0 - 70.0 % HISTORICAL RESULTS Lymphocytes, abs 1.4 0.9 - 5.3 K/cumm HISTORICAL RESULTS Monocytes, absolute 0.6 0.1 - 1.1 K/cumm HISTORICAL RESULTS Neutrophils, abs 3.8 1.3 - 7.4 K/cumm HISTORICAL RESULTS Blood specimen (specimen) 06/24/2013 11:20 AM MAILING SPECIALIST us Sparkle Colindres MD LAB BLOOD ORDERABLES Fin al Result HISTORICAL RESULTS * Serum basic metabolic panel (06/04/2013 1:23 PM MAILING SPECIALIST) Pathologist [facility] BUN 17.0 6.0 - 23.0 mg/dl HISTORICAL RESULTS Sodium 140 134 - 143 mmol/L HISTORICAL RESULTS Potassium, sr 3.6 3.4 - 5.0 mmol/L HISTORICAL RESULTS Chloride 105 99 - 108 mmol/L HISTORICAL RESULTS CO2 27 23 - 32 mmol/L HISTORICAL RESULTS Glucose 149 70 - 199 mg/dl HISTORICAL RESULTS Comment: [...] glucose. New reference ranges implemented 05/13/2013. Creatinine 0.95 0.60 - 1.30 mg/dl HISTORICAL RESULTS Comment: eGFR: >70 ml/min/1.73sq.m if non -Czech. eGFR: >70 ml/min/1.73sq.m if -Czech. AVE GFR for 60-69 yr. age group: ??85 ml/min/173sq.m Calculated using MDRD Equation BUN/creat ratio 18 10 - 20 HIST ORICAL RESULTS A. gap 12 7 - 14 mmol/L HISTORICAL RESULTS Osmo, calc 284 280 - 301 mOsm/kg HISTORICAL RESULTS Calcium 8.9 8.6 - 9.8 mg/dl HISTORICAL RESULTS Serum 06/04/2013 1:23 PM MAILING SPECIALIST us Sparkle Colindres MD LAB BLOOD ORDERABLES Fin al Result HISTORICAL RESULTS * Blood cell count (CBC) (06/04/2013 1:23 PM MAILING SPECIALIST) WBC 6.7 4.5 - 10.6 K/cumm HISTORICAL RESULTS RBC 5.63 4.00 - 6.01 M/cumm HISTORICAL RESULTS Hgb 16.1 11.0 - 18.1 g/dl HISTORICAL RESULTS Hct 48.8 35.0 - 60.0 % HISTORICAL RESULTS MCV 86.6 80.0 - 100.0 fl HISTORICAL RESULTS MCH 28.6 27.0 - 31.0 pg HISTORICAL RESULTS MCHC 33.0 33.0 - 37.0 g/dl HISTORICAL RESULTS Rdw 13.2 11.5 - 14.6 % HISTORICAL RESULTS Platelets 211 150 - 400 K/cumm HISTORICAL RESULTS MPV 8.3 7.4 - 10.4 fl HISTORICAL RESULTS Lymphocytes 21.6 20.0 - 50.0 % HISTORICAL RESULTS Monos 11.2 1.0 - 13.0 % HISTORICAL RESULTS Neutrophils 67.2 30.0 - 70.0 % HISTORICAL RESULTS Lymphocytes, abs 1.4 0.9 - 5.3 K/cumm HISTORICAL RESULTS Monocytes, absolute 0.8 0.1 - 1.1 K/cumm HISTORICAL RESULTS Neutrophils, abs 4.5 1.3 - 7.4 K/cumm HISTORICAL RESULTS Blood specimen (specimen) 06/04/2013 1:23 PM MAILING SPECIALIST us Sparkle Colindres MD LAB BLOOD ORDERABLES Fin al Result HISTORICAL RESULTS documented in this encounter Visit Diagnoses Diagnosis Polycythemia vera (HCC) documented in this encounter Care Teams Warehouse Director Relationship Specialty Start Date End Date Wesley Em MD PCP - General 10/12/12 08/31/16 documented as of this encounter
--- OUTSIDE RECORDS SUMMARY | 2024-06-18 18:18 | XMS_ITS | Encounter Summary ---
Author Organization [facility] Healthcare Address [address] [place] [address] Care Team Providers Care Color Depositing Machine Tender Name Role Phone Gene Em MD Primary Care Provider [phone] Encounter Details Date Type Department Care Team (Late st Contact Info) Description 03/22/2013 9:59 AM CDT - 03/22/2013 11:59 PM CDT Hospital Encounter [facility] Gene Lopez MD [address] [place] [phone] Personal history of tobacco use, presenting hazards to health Social History Tobacco Use Types Packs/Day Years Used Date Smoking Tobacco: Former Alcohol Use Standard Drinks/Week Comments No 0 (1 standard drink = 0.6 oz pur e alcohol) Sex and Gender Information Value Date Recorded Sex Assigned at Not on file Legal Sex Male 6:00 PM GREEN CHAIN MARKER Gender Identity Not on file Sexual [...] Procedure Name Priority Date/Time Associated Diagnosis Comments AORTIC SONOGRAPHY Routine 03/22/2013 10: 33 AM CDT documented in this encounter Results * AORTIC SONOGRAPHY (03/22/2013 10:33 AM CDT) Anatomical Region Laterality Modality N/A Ultrasound 03/22/2013 10:3 3 AM CDT Narrative 03/22/2013 12:22 PM CDT US Aorta ??Acc#: ??[id number] DATE OF EXAM: ??Mar 22 2013 CLINICAL HISTORY: History of tobacco use. RESULT: Longitudinal and transverse realtime scans obtained. ??Suboptimal examination, patient grossly obese. No abdominal aortic aneurysm was seen. ??On the sagittal images, AP dimension of the proximal abdominal aorta is 19mm, mid abdominal aorta of 19mm and distal abdominal aorta of 24mm. ??On the transverse images, transverse dimension of the proximal abdominal aorta is 25mm, mid abdominal aorta of 21mm and distal abdominal aorta of 19mm. IMPRESSION: 1. SUBOPTIMAL EXAMINATION DUE TO BODY HABITUS. 2. NO ANEURYSM IDENTIFIED. Interpreting Physician: ??REECE OLVERA M.D. ??Read on: ??Mar 22 2013 10:43A Transcribed by: ??jennifer ?? On: Mar 22 2013 11:04A Approved Electronically by: ??REECE OLVERA M.D. ??on: ??Mar 22 2013 12:22P Ordering DR: DR GENE EM Attending DR: DR GENE EM Procedure Note Provider, MD Wilian - 10/22/2016 US Aorta Acc#: [id number] DATE OF EXAM: Mar 22 2013 CLINICAL HISTORY: History of tobacco use. RESULT: Longitudinal and transverse realtime scans obtained. Suboptimalexamination, patient grossly obese. No abdominal aortic aneurysm was seen.On the sagittal images, AP dimension of the proximal abdominal aorta is19mm, mid abdominal aorta of 19mm and distal abdominal aorta of 24mm. Onthe transverse images, transverse dimension of the proximal abdominalaorta is 25mm, mid abdominal aorta of 21mm and distal abdominal aorta of19mm. IMPRESSION: 1. SUBOPTIMAL EXAMINATION DUE TO BODY HABITUS. 2. NO ANEURYSM IDENTIFIED. Interpreting Physician: REECE OLVERA M.D. Read on: Mar 22 2013 10:43A Transcribed by: jennifer On: Mar 22 2013 11:04A Approved Electronically by: REECE OLVERA M.D. on: Mar 22 2013 12:22P Ordering DR: DR GENE EM Attending DR: DR GENE EM us Historical Provider MD CUELLAR US PROCEDURES Final R esult documented in this encounter Visit Diagnoses Diagnosis Personal history of tobacco use, presenting hazards to health documented in this encounter Care Teams Color Depositing Machine Tender Relationship Specialty Start Date End Date Gene Em MD PCP - General 10/12/12 08/31/16 documented as of this encounter
--- OUTSIDE RECORDS SUMMARY | 2024-06-18 18:18 | XMS_ITS | Encounter Summary ---
Author Organization [facility] Healthcare Address [address] [place] [address] Care Team Providers Care Adjunct Psychology Professor Name Role Phone Wesley Em MD Primary Care Provider [phone] Encounter Details Date Type Department Care Team (Latest Contact Info) Description 09/04/2012 9:10 AM INGREDIENT SCALER HELPER - 09/05/2012 1:18 PM INGREDIENT SCALER HELPER Hospital [place] [address] [place] [address] Coronary atherosclerosis of [place] coronary artery; Other and unspecified angina pectoris; Essential hypertension; Other and unspecified hyperlipidemia; Type 2 or unspecified type diabetes mellitus; Knee joint replaced by other means; Other specified chronic obstructive airways disease; Personal history of tobacco use, presenting hazards to health Social History Tobacco Use Types Packs/Day Years Used Date Smoking Tobacco: Former Alcohol Use Standard Drinks/Week Comments No 0 (1 standard drink = 0.6 oz pur e alcohol) Sex and Gender Information Value Date Recorded Sex Assigned at Not on file Legal Sex Male 6:00 PM INGREDIENT SCALER HELPER Gender Identity Not on file Sexual Orientation Straight 01/23/2021 10 :16 PM CDT documented as of this encounter Last Filed Vital Signs Vital Sign Reading Time Taken Comments Blood Pressure 127/85 09/05/2012 11:34 AM INGREDIENT SCALER HELPER Pulse 73 09/05/2012 11:34 AM INGREDIENT SCALER HELPER Temperature - - Respiratory Rate - - Oxygen Saturation - - Inhaled Oxygen Concentration - - Weight 100.4 kg (221 lb 5.5 oz) 09/05/2012 4:00 AM INGREDIENT SCALER HELPER Height 172.7 cm (5' 7.99 ) 09/04/2012 2:15 PM CS T Body Mass Index 33.66 09/04/2012 2:15 PM INGREDIENT SCALER HELPER documented in this encounter Discharge Summaries * Provider, MD Wilian - 09/04/2012 12:00 AM CST DISCHARGE SUMMARY Patient: VERNA ALSTON Account: [id number] Room No: : 1945 Patient Type: SDS Attend.: Ras Cagle F.A.C.C.SFelaC.A.I. Admit Date: 09/04/2012 Dict.: Ras Cagle F.A.C.C.SFelaC.A.I. Disch. Date: ADMISSION DIAGNOSES: 1. New onset exertional angina with abnormal stress test. 2. Hypertension. 3. Dyslipidemia. 4. Diabetes mellitus type 2. 5. History of polycythemia vera. 6. History of knee replacement. 7. History of carpal tunnel surgery. DISCHARGE DIAGNOSES: 1. Severe symptomatic coronary artery disease status post drug-eluting stent implantation to the circumflex and diagonal branch. 2. Hypertension. 3. Dyslipidemia. 4. Diabetes mellitus type 2. 5. History of polycythemia vera. 6. History of knee replacement. 7. History of carpal tunnel surgery. HOSPITAL COURSE: Please refer to history and physical for details. The patient presented to Dr. Castillo with anginal chest discomfort and underwent stress test which was abnormal indicating anterior as well as inferior ischemia. Coronary angiography revealed severe focal three vessel coronary artery disease with normal left ventricular systolic function. He underwent successful percutaneous coronary intervention with implantation of a 3.0 x 15 mm Expedition drug-eluting stent in the mid circumflex branch, a 3.0 x 12 mm Expedition drug-eluting stent in the mid circumflex branch, a 3.0 x 15 mm Expedition drug-eluting stent in the diagonal branch of the LAD. His hospital course was uneventful. On 09/05/2012 he was discharged with appropriate followup. DISCHARGE MEDICATIONS: 1. Aspirin 81 mg a day. 2. Plavix 75 mg daily. 3. Flonase two sprays daily. 4. Pravachol 40 mg daily. 5. Clonidine 0.2 mg two tablets every 12 hours. 6. Finasteride 5 mg daily. 7. Gemfibrozil 600 mg b.i.d. 8. Hydrochlorothiazide 25 mg daily. 9. Metoprolol 25 mg b.i.d. 10. Quinapril 40 mg daily. 11. Tamsulosin 0.4 mg daily. HOSPITAL FOLLOWUP: The patient is to see Dr. Castillo in the office in three weeks. Meanwhile, staged PCI to the right coronary artery will be scheduled within the next two weeks. Ras Cagle F.A.C.C./gerald TD: 09/04/2012 12:51 CC: Ras Thakkar F.A.C.C., M.D. [employer] [address] [place] [address], [id number] [place] [address] Authenticated by Trista Millan MD On 09/18/2012 05:00:10 PM documented in this encounter Medications at Time of Discharge aspirin 81 mg tablet Take one by mouth one time per day 0 0 06/27/2008 cloNIDine (CATAPRES) 0.2 mg tablet take 1 tablet (0.2MG) by oral route bid 60 12 08/13/2012 12/26/2016 finasteride (PROSCAR) 5 mg tablet TAKE ONE TABLET BY MOUTH EVERY DAY 90 3 08/11/2011 02/17/2017 tamsulosin (FLOMAX) 0.4 mg capsule,extended release 24hr TAKE ONE CAPSULE BY MOUTH EVERY DAY 90 3 03/11/2008 12/14/2016 documented as of this encounter H&P Notes * Provider, MD Wilian - 09/04/2012 12:00 AM CST HISTORY AND PHYSICAL Patient: VERNA ALSTON Account: [id number] Room No: : 1945 Patient Type: [facility] Attend.: Ras Cagle F.A.C.C.. Admit Date: 09/04/2012 Dict.: Ras Cagle F.A.C.C. Disch. Date: HISTORY: The patient is a very pleasant 66-year-old gentleman with history of hypertension, dyslipidemia, chronic obstructive pulmonary disease, who presented with symptoms of progressive exertional angina for the past few weeks. Stress test was abnormal indicating inferior and anterior ischemia. Coronary angiography is recommended. He underwent elective coronary angiography, revealing severe focal three vessel coronary artery disease with normal left ventricular systolic function. He underwent successful percutaneous coronary intervention with drug-eluting stent implantation to the mid circumflex as well as the diagonal branch of the LAD. He is now admitted for further management. PRIOR MEDICAL HISTORY: 1. Hypertension. 2. Diabetes mellitus type 2. 3. Dyslipidemia. 4. History of knee replacement. 5. History of carpal tunnel syndrome. HOME MEDICATIONS: 1. Flonase daily. 2. Pravachol 40 mg daily. 3. Aspirin 81 mg daily. 4. Clonidine 0.2 mg two tablets every 12 hours. 5. Finasteride 5 mg daily. 6. Gemfibrozil 600 b.i.d. 7. Hydrochlorothiazide 25 mg daily. 8. Metoprolol 25 mg p.o. b.i.d. 9. Quinapril 40 mg daily. 10. Flomax 0.4 mg daily. ALLERGIES: Cipro and apple juice. SOCIAL HISTORY: The patient has a longstanding history of tobacco use, quit four years ago. He does not drink alcohol. FAMILY HISTORY: Non-contributory. REVIEW OF SYSTEMS: Overall negative except for symptoms of current illness. PHYSICAL EXAMINATION: Blood pressure 130/70. Pulse is 80 and regular. HEENT unremarkable. Neck supple without jugular venous distention, carotid bruits, or thyromegaly. Lungs are clear. Heart is regular without gallop. Abdomen is soft. Extremities without cyanosis, clubbing or edema. Neurological exam is nonfocal. IMPRESSION: 1. Severe symptomatic coronary artery disease status post successful percutaneous coronary intervention and stent implantation. The patient will be admitted to telemetry and will receive aspirin and Plavix daily. Beta johanne and lipid lower therapy will be continued. Staged percutaneous coronary intervention on the right coronary artery will be performed within two weeks time. 2. Hypertension. 3. Dyslipidemia. 4. Diabetes mellitus. 5. History of polycythemia vera. 6. *-*-* 7. 8. 1. Ras Cagle F.A.C.C./gerald TD: 09/04/2012 12:19 Authenticated by Trista Millan MD On 09/18/2012 05:00:07 PM documented in this encounter Plan of Treatment Not on file documented as of this encounter Procedures Procedure Name Priority Date/Time Associated Diagnosis Comments BLOOD GLUCOSE Routine 09/05/2012 12:11 PM INGREDIENT SCALER HELPER BLOOD GLUCOSE Routine 09/05/2012 8:09 AM INGREDIENT SCALER HELPER SERUM BASIC METABOLIC PANEL Routine 09/05/2012 4:28 AM INGREDIENT SCALER HELPER BLOOD WBC CELL MORPHOLOGIC EXAM, AUTO Routine 09/05/2012 4:28 AM INGREDIENT SCALER HELPER BLOOD CELL COUNT (CBC) Routine 3 4:28 AM INGREDIENT SCALER HELPER DISCHARGE LABORATORY CUMULATIVE REPORT Routine 09/05/2012 12:00 AM INGREDIENT SCALER HELPER BLOOD GLUCOSE Routine 09/04/2012 9:16 PM INGREDIENT SCALER HELPER BLOOD GLUCOSE Routine 09/04/2012 5:31 PM INGREDIENT SCALER HELPER LEFT CORONARY ANGIOGRAPHY Routine 2012 12:01 PM INGREDIENT SCALER HELPER BLOOD GLUCOSE Routine 09/04/2012 9:35 AM INGREDIENT SCALER HELPER ELECTROCARDIOGRAPHY (ECG) 09/04/2012 documented in this encounter Results * (ABNORMAL) Blood glucose (09/05/2012 12:11 PM INGREDIENT SCALER HELPER) Glucose, bld 252(H) 70 - 110 mg/dl HISTORICAL RESULTS Blood specimen (specimen) 09/05/2012 12:11 PM INGREDIENT SCALER HELPER Result Judith Millan MD LAB BLOOD ORDERABLES Final Resul t Performing Organization Address City/[facility] Co de Phone Number HISTORICAL RESULTS * (ABNORMAL) Blood glucose (09/05/2012 8:09 AM INGREDIENT SCALER HELPER) Glucose, bld 178(H) 70 - 110 mg/dl HISTORICAL RESULTS Blood specimen (specimen) 09/05/2012 8:09 AM INGREDIENT SCALER HELPER Result Judith Millan MD LAB BLOOD ORDERABLES Final Resul t Performing Organization Address [facility] de Phone Number HISTORICAL RESULTS * (ABNORMAL) Serum basic metabolic panel (09/05/2012 4:28 AM INGREDIENT SCALER HELPER) Pathologist [facility] BUN 13.0 6.0 - 23.0 mg/dl HISTORICAL RESULTS Sodium 136 134 - 143 mmol/L HISTORICAL RESULTS Potassium, sr 3.3(L) 3.4 - 5.0 mmol/L HISTORICAL RESULTS Chloride 97(L) 99 - 108 mmol/L HISTORICAL RESULTS CO2 29 23 - 32 mmol/L HISTORICAL RESULTS Glucose, fasting 170(H) 70 - 110 mg/dl HISTORICAL RESULTS Creatinine 0.99 0.60 - 1.30 mg/dl HISTORICAL RESULTS Comment: eGFR: >70 ml/min/1.73sq.m if non -Slovenian. eGFR: >70 ml/min/1.73sq.m if -Slovenian. AVE GFR for 60-69 yr. age group: ??85 ml/min/173sq.m Calculated using MDRD Equation BUN/creat ratio 13 10 - 20 HIST ORICAL RESULTS A. gap 14 7 - 14 mmol/L HISTORICAL RESULTS Osmo, calc 276(L) 280 - 301 mOsm/kg HISTORICAL RESULTS Calcium 9.0 8.6 - 9.8 mg/dl HISTORICAL RESULTS Serum 09/05/2012 4:28 AM INGREDIENT SCALER HELPER Result Judith Millan MD LAB BLOOD ORDERABLES Final Resul t Performing Organization Address [facility] de Phone Number HISTORICAL RESULTS * (ABNORMAL) Blood cell count (CBC) (09/05/2012 4:28 AM INGREDIENT SCALER HELPER) Pathologist [facility] WBC 12.5(H) 4.0 - 10.5 K/cumm HISTORICAL RESULTS RBC 4.74 4.60 - 6.20 M/cumm HISTORICAL RESULTS Hgb 15.5 14.0 - 18.0 g/dl HISTORICAL RESULTS Hct 44.5 40.0 - 54.0 % HISTORICAL RESULTS MCV 93.9 77.0 - 97.0 fl HISTORICAL RESULTS MCH 32.7 23.0 - 34.0 pg HISTORICAL RESULTS MCHC 34.8 32.0 - 36.0 g/dl HISTORICAL RESULTS Rdw 13.5 11.5 - 14.5 % HISTORICAL RESULTS Platelets 195 150 - 451 K/cumm HISTORICAL RESULTS MPV 10.1 7.4 - 10.4 fl HISTORICAL RESULTS Blood specimen (specimen) 09/05/2012 4:28 AM INGREDIENT SCALER HELPER Trista Millan MD LAB BLOOD ORDERABLES Final Resul t Performing Organization Address [facility] de Phone Number HISTORICAL RESULTS * (ABNORMAL) Blood WBC cell morphologic exam, auto (09/05/2012 4:28 AM INGREDIENT SCALER HELPER) Pathologist [facility] Lymphocytes 10.8(L) 25.0 - 33.0 % HISTORICAL RESULTS Monos 10.0 1.0 - 13.0 % HISTORICAL RESULTS Neutrophils 76.6(H) 54.0 - 69.0 % HISTORICAL RESULTS Eosinophils 1.6 0.0 - 10.0 % HISTORICAL RESULTS Basophils 0.7 0.0 - 1.0 % HISTORICAL RESULTS Immature granulocytes 0.3 % HISTORICAL RESULTS Lymphocytes, abs 1.4 1.2 - 3.4 K/cumm HISTORICAL RESULTS Monocytes, absolute 1.3 1.1 - 1.9 K/cumm HISTORICAL RESULTS Neutrophils, abs 9.6(H) 1.4 - 6.5 K/cumm HISTORICAL RESULTS Eosinophils, abs 0.2 0.0 - 0.7 cells/cum m HISTORICAL RESULTS Basophils, abs 0.1 0.0 - 0.2 K/cumm HISTORICAL RESULTS Immature granulocyte, abs 0 0 - 2 K/cumm HISTORICAL RESULTS Blood specimen (specimen) 09/05/2012 4:28 AM INGREDIENT SCALER HELPER us Trista Millan MD LAB BLOOD ORDERABLES Final Resul t HISTORICAL RESULTS * Discharge Laboratory Cumulative Report (09/05/2012 12:00 AM INGREDIENT SCALER HELPER) 09/05/2012 Narrative HISTORICAL RESULTS - 09/06/2012 12:24 AM INGREDIENT SCALER HELPER Patient No: [id number] ? [facility] Patient Name: VERNA ALSTON ?[facility] Healthcare Age: 66 YRS ?: 1945 ?Sex:M ?[address] )[id number] ?? Adm Dt: 09/04/2012 ?[place], [place] ??[address] Created: 09/06/2012 ??0024 ?? Pt. Type: U ? Discharge Dt: 09/05/2012 ? Pathologists: Brooklyn Ortiz MD Admit DrFela Attend Dr: TRISTA MILLAN MD ? BLOOD CELL COUNTS ?Collection Date: ?09/05/12 ?Collection Time: ?0428 ? Ref Range: ?? Units: [4.00-10.50] /CMM ? WBC X 10^3 ? 12.49 H [4.60-6.20] ??/CMM ? RBC X 10^6 ?4.74 [14.0-18.0] ??G/DL ? HGB ? 15.5 [40.0-54.0] ??% ?HCT ? 44.5 [77.0-97.0] ??FL ? MCV ? 93.9 [23.0-34.0] ??PG ? MCH ? 32.7 [32.0-36.0] ??% ?MCHC ?34.8 [11.5-14.5] ??% ?RDW ? 13.5 [150-451] ?? /CMM ? PLT X 10^3 ? 195 ?BLOOD CELL DIFFERENTIAL ?Collection Date: ?09/05/12 ?Collection Time: ?0428 ? Ref Range: ?? Units: [54.0-69.0] ??% ?NEUTROPHILS ? 76.6 H [25.0-33.0] ??% ?LYMPHOCYTES ? 10.8 L [1.0-13.0] ??% ?MONOCYTES ? 10.0 [0.0-10.0] ??% ?EOSINOPHILS ?1.6 [0.0-1.0] ?? % ?BASOPHILS ?0.7 ? /CMM ? A LYMPHOCYTE ? 1.4 ? % ?IMM GRAN % ? 0.3 [0.00-2.00] ??/CMM ? A IMM GRAN ?0.40 [1.1-1.9] ?? /CMM ? A MONOCYTE ? 1.3 [1.4-6.5] ?? /CMM ? A NEUTROPHIL ? 9.6 H [0.0-0.7] ?? /CMM ? A EOSINOPHIL ? 0.2 [0.0-0.2] ?? /CMM ? A BASOPHIL ? 0.1 Footnotes and Symbols: L = Low, H = High ?? CONTINUED ?Page: ?? 1 Patient No: [id number] ? [facility] Patient Name: VERNA ALSTON ?[facility] Age: 66 YRS ?: 1945 ?Sex:M ?[address] )[id number] ?? Adm Dt: 09/04/2012 ?[place], [place] ??[address] Created: 09/06/2012 ??0024 ?? Pt. Type: U ? Discharge Dt: 09/05/2012 ? Pathologists: Brooklyn Ortiz MD Admit Attend Dr: TRISTA MILLAN MD ? GENERAL CHEMISTRY ?Collection Date: ?09/05/12 ? 09/05/12 ?Collection Time: ?1211 ? 0809 ? Ref Range: ?? Units: ??[70-110] ?? MG/DL ?POC GLUCOSE ?252 H ?178 H ?Collection Date: ?09/05/ ? 09/04/ ?Collection Time: ?0428 ? 2116 ? Ref Range: ?? Units: [134-143] ?? MMOL/L ? SODIUM ? 136 ??[70-110] ?? MG/DL ?POC GLUCOSE ? 169 H [3.4-5.0] ?? MMOL/L ? POTASSIUM ?3.3 L [99.0-108.0] MMOL/L ? CHLORIDE ?97.0 L [23.0-32.0] ??MMOL/L ? TOTAL CO2 ? 28.7 ?? [7-14] ?MMOL/L ? ANION GAP ? 14 ??[70-110] ?? MG/DL ?GLUCOSE FASTING ?170 H [280-301] ?? MOSM/K ? CALCULATED OSMO ?276 L [8.6-9.8] ?? MG/DL ?CALCIUM ?9.0 [6.0-23.0] ??MG/DL ?BUN ? 13.0 ??[10-20] ? B/C RATIO ? 13 [0.60-1.30] ??MG/DL ?CREATININE ?0.99 f ?09/05/12 0428 eGFR: >70 ml/min/1.73sq.m if non -Slovenian. eGFR: >70 ml/min/1.73sq.m if -Slovenian. AVE GFR for 60-69 yr. age group: ??85 ml/min/173sq.m Calculated using MDRD Equation FOOTNOTE ADDED ON ?? 09/05/12 ?? AT 0524 BY 999 Footnotes and Symbols: L = Low, H = High, f = Footnote ?? CONTINUED ?Page: ?? 2 Patient No: [id number] ? [facility] Patient Name: VERNA ALSTON ?[facility] Age: 66 YRS ?: 1945 ?Sex:M ?[address] )[id number] ?? Adm Dt: 09/04/2012 ?[place], [place] ??[address] Created: 09/06/2012 ??0024 ?? Pt. Type: U ? Discharge Dt: 09/05/2012 ? Pathologists: Brooklyn Ortiz MD Admit Attend Dr: TRISTA MILLAN MD ? GENERAL CHEMISTRY ?Collection Date: ?09/04/12 ? 09/04/12 ?Collection Time: ?1731 ? 0935 ? Ref Range: ?? Units: ??[70-110] ?? MG/DL ?POC GLUCOSE ?195 H ?211 H Footnotes and Symbols: H = High ?? END OF CHART ? Page: ?? 3 us Historical Provider LAB BLOOD ORDERABLES Iwona l Result Performing Organization Address [facility] Phone Number HISTORICAL RESULTS * (ABNORMAL) Blood glucose (09/04/2012 9:16 PM INGREDIENT SCALER HELPER) Glucose, bld 169(H) 70 - 110 mg/dl HISTORICAL RESULTS Blood specimen (specimen) 09/04/2012 9:16 PM INGREDIENT SCALER HELPER Trista Millan MD LAB BLOOD ORDERABLES Final Resul t Performing Organization Address [facility] Phone Number HISTORICAL RESULTS * (ABNORMAL) Blood glucose (09/04/2012 5:31 PM INGREDIENT SCALER HELPER) Glucose, bld 195(H) 70 - 110 mg/dl HISTORICAL RESULTS Blood specimen (specimen) 09/04/2012 5:31 PM INGREDIENT SCALER HELPER Trista Millan MD LAB BLOOD ORDERABLES Final Resul t Performing Organization Address [facility] Phone Number HISTORICAL RESULTS * CORONARY ANGIOGRAPHY [id number] (09/04/2012 12:01 PM INGREDIENT SCALER HELPER) Anatomical Region Laterality Modality X-Ray Angiograph y 09/04/2012 12:0 1 PM INGREDIENT SCALER HELPER Narrative 11/22/2012 9:53 PM CDT HEART CATH ??Acc#: ??[id number] DATE OF EXAM: ??Aug ??2012 CLINICAL HISTORY: Chest pain. RESULT: CARDIAC CATHETERIZATION/PTCA REPORT INDICATION: Mr. Alston is a very pleasant 66 year old gentleman with a history of hypertension, diabetes mellitus type II, dyslipidemia who presented to Dr. Castillo with chest pain syndrome and underwent stress test, revealing anterior and inferior wall ischemia. ??Coronary angiography is recommended. PROCEDURE(S) PERFORMED: Left heart catheterization, selective coronary angiography, left ventriculography, percutaneous vascular access closure. PROCEDURE TECHNIQUE: After informed consent, the patient was brought to the cardiac catheterization laboratory and prepped and draped in usual sterile manner. ??Vascular access was obtained via the right femoral artery using 5 [place] sheath advanced over the wire without difficulty after local anesthesia was applied using 1% Lidocaine. ??Selective coronary angiography was performed using standard 5 [place] Manolo catheters. ??Left ventriculography was performed using 5 [place] pigtail catheter. ??PTCA technique as described below. FINDINGS: HEMODYNAMICS: ??Resting left ventricular pressure was 130/15mmHg. Ascending aortic pressure was 130/70mmHg. LEFT VENTRICULOGRAPHY: Left ventriculography was performed in the WEN projection and revealed normal left ventricular systolic wall motion with ejection fraction of 65% and mild mitral regurgitation. SELECTIVE CORONARY ANGIOGRAPHY: LEFT CORONARY ARTERY: The left main coronary artery was angiographically free of stenosis. ??The left anterior descending had moderate disease. ??A large 1st diagonal branch had a 90% mid vessel stenosis. ??The left circumflex was large but nondominant and had a 90% mid vessel stenosis. RIGHT CORONARY ARTERY: The right coronary artery was a dominant vessel and had significant tortuosity. ??There was a 90% stenosis in the proximal vessel in a calcified segment. PTCA TECHNIQUE: After diagnostic angiography and given the above presentation and findings, percutaneous coronary intervention was performed on the LAD diagonal as well as the circumflex branch. ??The right femoral artery sheath was upsized to 6 [place] sheath and the left coronary was cannulated using 6 [place] Voda left 4 guide. ??The patient received Angiomax bolus and infusion was started. ??The mid circumflex was crossed using a PT2 guidewire and was directly stented using 3.0 x 12mm Expedition drug-eluting stent with 0% residual stenosis. ??The diagonal branch of the LAD was then crossed using the same guidewire and the mid vessel stenosis was directly stented using a 3.0 x 15mm Expedition drug-eluting stent. ??There was 0% residual stenosis with excellent result on subsequent angiography. The right coronary was then cannulated using 6 [place] AL 0.75 guide catheter and the lesion was crossed using a PT2 guidewire. ??However, I could not cross the lesion with any balloons, including a 1.5mm balloon due to calcification. ??Therefore this part of the procedure was terminated, to be staged at a different occasion, probably with rotational atherectomy due to calcification. PROCEDURE COMMENTS: The patient tolerated the procedure well without complications. ??At the end of the procedure, right femoral artery puncture site hemostasis was achieved using a 6 [place] AngioSeal device without complications. IMPRESSION: 1. SEVERE FOCAL THREE VESSEL CORONARY ARTERY DISEASE. 2. NORMAL LEFT VENTRICULAR SYSTOLIC WALL MOTION AND EJECTION FRACTION. 3. MILD MITRAL REGURGITATION. 4. NORMAL LEFT VENTRICULAR END DIASTOLIC PRESSURE. 5. SUCCESSFUL PERCUTANEOUS CORONARY INTERVENTION AND IMPLANTATION OF A 3.0 X 12MM EXPEDITION DRUG-ELUTING STENT IN THE MID CIRCUMFLEX BRANCH. 6. SUCCESSFUL IMPLANTATION OF A 3.0 X 15MM EXPEDITION DRUG-ELUTING STENT IN THE DIAGONAL BRANCH OF THE LAD. PLAN: The patient will be admitted to Telemetry and will receive aspirin and Plavix daily. ??Stage percutaneous coronary intervention will be planned on the right coronary artery within the next 2 weeks. Interpreting Physician: ??DR TRISTA MILLAN M.D. ??Read on: ??Aug ??2012 2:35P Transcribed by: ??mrr ??On: Aug ??2012 ??2:35P Approved Electronically by: ??GUERRERO Mcginnis, DR TRISTA Nesbitt ??on: ??Nov 22 2012 9:53P Ordering DR: DR TRISTA MILLAN Attending DR: DR TRISTA MILLAN Procedure Note Provider, MD Wilian - 10/22/2016 HEART CATH Acc#: [id number] DATE OF EXAM: Sep 04 2012 CLINICAL HISTORY: Chest pain. RESULT: CARDIAC CATHETERIZATION/PTCA REPORT INDICATION: Mr. Alston is a very pleasant 66 year old gentleman with ahistory of hypertension, diabetes mellitus type II, dyslipidemia whopresented to Dr. Castillo with chest pain syndrome and underwent stress test,revealing anterior and inferior wall ischemia. Coronary angiography isrecommended. PROCEDURE(S) PERFORMED: Left heart catheterization, selective coronaryangiography, left ventriculography, percutaneous vascular accessclosure. PROCEDURE TECHNIQUE: After informed consent, the patient was brought tothe cardiac catheterization laboratory and prepped and draped in usualsterile manner. Vascular access was obtained via the right femoral arteryusing 5 [place] sheath advanced over the wire without difficulty afterlocal anesthesia was applied using 1% Lidocaine. Selective coronaryangiography was performed using standard 5 [place] Manolo catheters. Leftventriculography was performed using 5 [place] pigtail catheter. PTCAtechnique as described below. FINDINGS: HEMODYNAMICS: Resting left ventricular pressure was 130/15mmHg. Ascendingaortic pressure was 130/70mmHg. LEFT VENTRICULOGRAPHY: Left ventriculography was performed in the RAOprojection and revealed normal left ventricular systolic wall motion withejection fraction of 65% and mild mitral regurgitation. SELECTIVE CORONARY ANGIOGRAPHY: LEFT CORONARY ARTERY: The left main coronary artery was angiographicallyfree of stenosis. The left anterior descending had moderate disease. Alarge 1st diagonal branch had a 90% mid vessel stenosis. The leftcircumflex was large but nondominant and had a 90% mid vessel stenosis. RIGHT CORONARY ARTERY: The right coronary artery was a dominant vessel andhad significant tortuosity. There was a 90% stenosis in the proximalvessel in a calcified segment. PTCA TECHNIQUE: After diagnostic angiography and given the abovepresentation and findings, percutaneous coronary intervention wasperformed on the LAD diagonal as well as the circumflex branch. The rightfemoral artery sheath was upsized to 6 [place]se sheath and the left coronarywas cannulated using 6 [place] Voda left 4 guide. The patient receivedAngiomax bolus and infusion was started. The mid circumflex was crossedusing a PT2 guidewire and was directly stented using 3.0 x 12mm Expeditiondrug-eluting stent with 0% residual stenosis. The diagonal branch of theLAD was then crossed using the same guidewire and the mid vessel stenosiswas directly stented using a 3.0 x 15mm Expedition drug-eluting stent.There was 0% residual stenosis with excellent result on subsequentangiography. The right coronary was then cannulated using 6 [place] AL 0.75guide catheter and the lesion was crossed using a PT2 guidewire. However,I could not cross the lesion with any balloons, including a 1.5mm balloon due to calcification. Therefore this part of the procedurewas terminated, to be staged at a different occasion, probably withrotational atherectomy due to calcification. PROCEDURE COMMENTS: The patient tolerated the procedure well withoutcomplications. At the end of the procedure, right femoral artery puncturesite hemostasis was achieved using a 6 [place] AngioSeal device withoutcomplications. IMPRESSION: 1. SEVERE FOCAL THREE VESSEL CORONARY ARTERY DISEASE. 2. NORMAL LEFT VENTRICULAR SYSTOLIC WALL MOTION AND EJECTION FRACTION. 3. MILD MITRAL REGURGITATION. 4. NORMAL LEFT VENTRICULAR END DIASTOLIC PRESSURE. 5. SUCCESSFUL PERCUTANEOUS CORONARY INTERVENTION AND IMPLANTATION OF A 3.0 X 12MM EXPEDITION DRUG-ELUTING STENT IN THE MID CIRCUMFLEX BRANCH. 6. SUCCESSFUL IMPLANTATION OF A 3.0 X 15MM EXPEDITION DRUG-ELUTING STENTIN THE DIAGONAL BRANCH OF THE LAD. PLAN: The patient will be admitted to Telemetry and will receive aspirinand Plavix daily. Stage percutaneous coronary intervention will beplanned on the right coronary artery within the next 2 weeks. Interpreting Physician: DR TRISTA MILLAN M.D. Read on: Sep 04 20122:35P Transcribed by: kyle On: Sep 04 2012 2:35P Approved Electronically by: GUERRERO Mcginnis, DR TRISTA Nesbitt on: Nov 22 20129:53P Ordering DR: DR TRISTA MILLAN Attending DR: DR TRISTA MILLAN Historical Provider CV CARDIAC CATH PROCEDURE S Final Result * (ABNORMAL) Blood glucose (09/04/2012 9:35 AM INGREDIENT SCALER HELPER) [facility] Glucose, bld 211(H) 70 - 110 mg/dl HISTORICAL RESULTS Blood specimen (specimen) 09/04/2012 9:35 AM INGREDIENT SCALER HELPER Trista Millan MD LAB BLOOD ORDERABLES Final Resul t HISTORICAL RESULTS * ELECTROCARDIOGRAPHY (ECG) (09/04/2012) Narrative 09/04/2012 Ordered by an unspecified provider. Historical Provider ECG ORDERABLES Final Res ult documented in this encounter Visit Diagnoses Diagnosis Coronary atherosclerosis of [place] coronary artery Other and unspecified angina pectoris Essential hypertension Unspecified essential hypertension Other and unspecified hyperlipidemia Type 2 or unspecified type diabetes mellitus Knee joint replaced by other means Other specified chronic obstructive airways disease Personal history of tobacco use, presenting hazards to health documented in this encounter Care Teams Adjunct Psychology Professor Relationship Specialty Start Date End Date Wesley Em MD PCP - General 03/11/08 10/11/12 documented as of this encounter
--- OUTSIDE RECORDS SUMMARY | 2024-06-18 18:18 | XMS_ITS | Encounter Summary ---
Author Organization [facility] Healthcare Address [address] [place] [address] Care Team Providers Care Property Officer Name Role Phone Wesley Em MD Primary Care Provider [phone] Encounter Details Date Type Department Care Team (Late st Contact Info) Description 12/01/2010 12:39 PM CDT - 12/01/2010 11:59 PM CDT Hospital Encounter [facility]INCON[facility]ley Vergara MD [address] [place] [id number] Dietary counseling and surveillance; Type 2 or unspecified type diabetes mellitus, uncontrolled; Essential hypertension Social History Tobacco Use Types Packs/Day Years Used Date Smoking Tobacco: Never Assessed Sex and Gender Information Value Date Recorded Sex Assigned at Not on file Legal 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
--- OUTSIDE RECORDS SUMMARY | 2024-06-18 18:18 | XMS_ITS | Encounter Summary ---
Author Organization [facility] Healthcare Address [address] [place] [address] Care Team Providers Care E M Assembler Name Role Phone Wesley Em MD Primary Care Provider Encounter Details Date Type Department Care Team (Late st Contact Info) Description 07/26/2006 12:01 AM SHAMPOO TECHNICIAN - 07/26/2006 11:59 PM SHAMPOO TECHNICIAN Hospital Encounter [facility] Albert Sky MD [address] [place] [id number] Social History Tobacco Use Types Packs/Day Years Used Date Smoking Tobacco: Never Assessed Sex and Gender Information Value Date Recorded Sex Assigned at Not on file Legal Sex Male 6:00 PM SHAMPOO TECHNICIAN Gender Identity Not on file Sexual Orientation Straight 01/23/2021 10 :16 PM CDT documented as of this encounter Plan of Treatment Not on file documented as of this encounter Visit Diagnoses Not on filedocumented in this encounter Care Teams E M Assembler Relationship Specialty Start Date End Date Wesley Em MD PCP - General 07/18/06 12/04/06 documented as of this encounter
--- OUTSIDE RECORDS SUMMARY | 2024-06-18 18:18 | XMS_ITS | Encounter Summary ---
Author Organization [facility] Healthcare Address [address] [place] [address] Care Team Providers Care Bending Press Operator Name Role Phone Gene Em MD Primary Care Provider [phone] Encounter Details Date Type Department Care Team (Late st Contact Info) Description 07/12/2012 11:39 AM ERP PM - 07/12/2012 11:59 PM ERP PM Hospital Encounter [facility] Gene Em MD [address] [place] [phone] Polycythemia vera (HCC) Social History Tobacco Use Types Packs/Day Years Used Date Smoking Tobacco: Former Alcohol Use Standard Drinks/Week Comments No 0 (1 standard drink = 0.6 oz pur e alcohol) Sex and Gender Information Value Date Recorded Sex Assigned at Not on file Legal Sex Male 6:00 PM ERP PM Gender Identity Not on file Sexual Orientation Straight 01/23/2021 10 :16 PM CDT documented as of this encounter Medications at Time of Discharge aspirin 81 mg tablet Take one by mouth one time per day 0 0 06/27/2008 finasteride (PROSCAR) 5 mg tablet TAKE ONE TABLET BY MOUTH EVERY DAY 90 3 08/11/2011 02/17/2017 tamsulosin (FLOMAX) 0.4 mg capsule,extended release 24hr TAKE ONE CAPSULE BY MOUTH EVERY DAY 90 3 03/11/2008 12/14/2016 documented as of this encounter Plan of Treatment Not on file documented as of this encounter Procedures Procedure Name Priority Date/Time Associated Diagnosis Comments BLOOD GAS, OXIMETRY, ARTERIAL Routine 07/12/2012 12:15 PM ERP PM URINALYSIS Routine 07/12/2012 12:00 PM ERP PM SERUM ERYTHROPOIETIN Routine 07/12/2012 6:13 AM ERP PM BLOOD CARBOXYHEMOGLOBIN, VENOUS Routine 07/12/2012 6:13 AM ERP PM DISCHARGE LABORATORY CUMULATIVE REPORT Routine 07/12/2012 12:00 AM ERP PM documented in this encounter Results * (ABNORMAL) Blood gas, oximetry, arterial (07/12/2012 12:15 PM ERP PM) O2, inspired, %/L RA %/L HISTORICAL RESULTS Ph, art 7.46(H) 7.35 - 7.45 HISTORICAL RESULTS PCO2 39 35 - 45 mm Hg HISTORICAL RESULTS PO2, art 78(L) 80 - 100 mm Hg HISTORICAL RESULTS BE, art 4(H) -2 - 2 mmol/L HISTORICAL RESULTS HCO3, art 28(H) 22 - 26 mmol/L HISTORICAL RESULTS CO2, calc, art 29(H) 23 - 27 mmol/L HISTORICAL RESULTS O2 sat, art 96 94 - 100 % HISTORI SHANTAL RESULTS Hgb estimated, art 18.0 14.0 - 18.0 g/dl HISTORICAL RESULTS Julian test YES YES HISTORICA L RESULTS Referral specimen, collection site [facility] HISTORICAL RESULTS Arterial blood 07/12/2012 12 :15 PM ERP PM us Gene Em MD LAB BLOOD ORDERABLES Final Res ult HISTORICAL RESULTS * (ABNORMAL) Urinalysis (07/12/2012 12:00 PM ERP PM) Color, ur YELLOW YELLOW HISTORICAL RESULTS Clarity, ur CLEAR CLEAR HISTORIC AL RESULTS Specific gravity, ur 1.021 1.000 - 1.030 gu HISTORICAL RESULTS Leukocyte esterase, ur Trace(A) NEGATIVE HISTORICAL RESULTS Nitrites, ur Negative NEGATIVE HISTORI SHANTAL RESULTS pH, ur 5.5 6.0 HISTORICAL RESULTS Protein, ur Negative NEGATIVE HISTORIC AL RESULTS Glucose, ur Negative NEGATIVE HISTORIC AL RESULTS Ketones, ur Negative NEGATIVE HISTORIC AL RESULTS Urobilinogen, quant, ur 0.2 0.2 - 1.0 mg/dl HISTORICAL RESULTS Bilirubin, ur Negative NEGATIVE HISTOR ICAL RESULTS U Blood Negative NEGATIVE HISTORICAL RESULTS Urine 07/12/2012 12:0 0 PM ERP PM Gene Em MD LAB BLOOD ORDERABLES Final Res ult Performing Organization Address [facility] de Phone Number HISTORICAL RESULTS * Blood carboxyhemoglobin, venous (07/12/2012 6:13 AM ERP PM) Cohb, mary 2.8 % HISTORICAL RESULTS Venous blood 07/12/2012 6:13 AM ERP PM Narrative HISTORICAL RESULTS - 07/12/2012 6:42 AM ERP PM NONSMOKERS: ??0.5-1.5% HBCO SMOKERS: ??1-2 PACKS/DAY 4.0-5.0% HBCO ?>2 PACKS/DAY 8.0-9.0% HBCO TOXIC: ??GREATER THAN 20% HBCO LETHAL: ??GREATER THAN 50% HBCO Gene Em MD LAB BLOOD ORDERABLES Final Res ult Performing Organization Address [facility] de Phone Number HISTORICAL RESULTS * (ABNORMAL) Serum erythropoietin (07/12/2012 6:13 AM ERP PM) Erythropoietin 192.0(H) mUnits/ml HISTO RICAL RESULTS Serum 07/12/2012 6:13 AM ERP PM Narrative HISTORICAL RESULTS - 07/13/2012 9:05 AM ERP PM -- REFERENCE VALUE -- 2.6 - 18.5 Gene Em MD LAB BLOOD ORDERABLES Final Res ult Performing Organization Address [facility] Co de Phone Number HISTORICAL RESULTS * Discharge Laboratory Cumulative Report (07/12/2012 12:00 AM ERP PM) 07/12/2012 Narrative HISTORICAL RESULTS - 07/14/2012 2:29 AM ERP PM Patient No: [id number] ? [facility] Patient Name: VILLA ALSTON ?[facility] Age: 66 YRS ?: 1945 ?Sex:M ?[address] )[id number] ?? Adm Dt: 07/12/2012 ?[place] ??[id number] Created: 07/14/2012 ??0229 ?? Pt. Type: R ? Discharge Dt: 07/12/2012 ? Pathologists: Brooklyn Ortiz MD Admit Attend Dr: GENE EM MD ?BLOOD GASES ?Collection Date: ?07/12/12 ? 07/12/12 ?Collection Time: ?1215 ? 1213 ? Ref Range: ?? Units: ? % ?CARB MONO MARY ? 2.8 f [7.35-7.45] ? PH ARTERIAL ? 7.46 H ??[35-45] ?[facility] ? PCO2 ARTERIAL ? 39 ??[80-100] ?? [facility] ? PO2 ARTERIAL ?78 L ??[23-27] ?MMOL/L ? CO2 TOTAL ART ? 29 H ??[22-26] ?MMOL/L ? HCO3 ART ?28 H ? %/L ?O2 RATE ? RA ??[-2-2] ? MMOL/L ? BASE EXCESS ART ?4 H [14.0-18.0] ??GM/DL ?TOTAL HGB ? 18.0 ?? [YES] ?JULIAN TEST PERF ?YES ?COLLECTION SITE ?RAD ART Footnotes and Symbols: L = Low, H = High, f = Footnote CARB MONO MARY (Initial -- Current) NONSMOKERS: ??0.5-1.5% HBCO SMOKERS: ??1-2 PACKS/DAY 4.0-5.0% HBCO ?>2 PACKS/DAY 8.0-9.0% HBCO TOXIC: ??GREATER THAN 20% HBCO LETHAL: ??GREATER THAN 50% HBCO ?? CONTINUED ?Page: ?? 1 Patient No: [id number] ? [facility] Patient Name: VILLA ALSTON ?[facility] Age: 66 YRS ?: 1945 ?Sex:M ?[address] )[phone] ?? Adm Dt: 07/12/2012 ?[place] ??[id number] Created: 07/14/2012 ??0229 ?? Pt. Type: R ? Discharge Dt: 07/12/2012 ? Pathologists: Brooklyn Ortiz MD Admit Attend Dr: GENE EM MD ?URINALYSIS ?Collection Date: ?07/12/12 ?Collection Time: ?1200 ? Ref Range: ?? Units: [YELLOW] ? U COLOR ? YELLOW ??[CLEAR] ? U APPEARANCE ? CLEAR [1.000-1.030] ? U SPEC GRAVITY ? 1.021 [NEGATIVE] ?U LEUKO ESTRASE ?TRACE * [NEGATIVE] ?U NITRITE ? NEGATIVE ?? [6.0] ?U PH ? 5.5 [NEGATIVE] ?U PROTEIN ? NEGATIVE [NEGATIVE] ?U GLUCOSE ? NEGATIVE [NEGATIVE] ?U KETONES ? NEGATIVE [0.2- 1.0] ?UROBILINOGEN ? 0.2 [NEGATIVE] ?U BILIRUBIN ? NEGATIVE [NEGATIVE] ?U BLOOD ? NEGATIVE ?[facility] ?Collection Date: ?07/12/12 ?Collection Time: ?1213 ? Ref Range: ?? Units: ? mIU/mL ? ERYTHROPOIETIN @ ? 192 Hf Footnotes and Symbols: H = High, * = Abnormal, f = Footnote @ = ERYTHROPOIETIN Performed at ??[place], [place] ERYTHROPOIETIN. 07/12/12 1213 ?? -- REFERENCE VALUE -- ?2.6 - 18.5 ?? END OF CHART ? Page: ?? 2 us Historical Provider MD LAB BLOOD ORDERABLES Iwona l Result HISTORICAL RESULTS documented in this encounter Visit Diagnoses Diagnosis Polycythemia vera (HCC) documented in this encounter Care Teams Bending Press Operator Relationship Specialty Start Date End Date Gene Em MD PCP - General 03/11/08 10/11/12 documented as of this encounter
--- OUTSIDE RECORDS SUMMARY | 2024-06-18 18:18 | XMS_ITS | Encounter Summary ---
Author Organization [facility] Healthcare Address [address] [place] [address] Care Team Providers Care Nutritional Services Host Name Role Phone Wesley Em MD Primary Care Provider [phone] Encounter Details Date Type Department Care Team (Late st Contact Info) Description 03/05/2013 8:00 AM CDT - 03/05/2013 11:59 PM CDT Hospital Encounter [facility] Sparkle Corrales MD [address] [place] [phone] Polycythemia vera (HCC) Social History Tobacco Use Types Packs/Day Years Used Date Smoking Tobacco: Former Alcohol Use Standard Drinks/Week Comments No 0 (1 standard drink = 0.6 oz pur e alcohol) Sex and Gender Information Value Date Recorded Sex Assigned at Not on file Legal 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 Gender Identity Not on file Sexual [...] Diagnosis Comments SERUM BASIC METABOLIC PANEL Routine 03/05/2013 1:20 PM CDT BLOOD CELL COUNT (CBC) Routine 03/05/2013 1:20 PM CDT DISCHARGE LABORATORY CUMULATIVE REPORT Routine 03/05/2013 12:00 AM CDT documented in this encounter Results * (ABNORMAL) Serum basic metabolic panel (03/05/2013 1:20 PM CDT) BUN 19.0 6.0 - 23.0 mg/dl HISTORICAL RESULTS Sodium 140 134 - 143 mmol/L HISTORICAL RESULTS Potassium, sr 3.2(L) 3.4 - 5.0 mmol/L HISTORICAL RESULTS Chloride 103 99 - 108 mmol/L HISTORICAL RESULTS CO2 26 23 - 32 mmol/L HISTORICAL RESULTS Glucose, fasting 180(H) 70 - 110 mg/dl HISTORICAL RESULTS Creatinine 0.95 0.60 - 1.30 mg/dl HISTORICAL RESULTS Comment: eGFR: >70 ml/min/1.73sq.m if non -Bhutanese. eGFR: >70 ml/min/1.73sq.m if -Bhutanese. AVE GFR for 60-69 yr. age group: ??85 ml/min/173sq.m Calculated using MDRD Equation BUN/creat ratio 20 10 - 20 HIST ORICAL RESULTS A. gap 14 7 - 14 mmol/L HISTORICAL RESULTS Osmo, calc 286 280 - 301 mOsm/kg HISTORICAL RESULTS Calcium 9.2 8.6 - 9.8 mg/dl HISTORICAL RESULTS Serum 03/05/2013 1:20 PM CDT us Sparkle Colindres MD LAB BLOOD ORDERABLES Fin al Result HISTORICAL RESULTS * (ABNORMAL) Blood cell count (CBC) (03/05/2013 1:20 PM CDT) WBC 5.3 4.5 - 10.6 K/cumm HISTORICAL RESULTS RBC 4.84 4.00 - 6.01 M/cumm HISTORICAL RESULTS Hgb 13.4 11.0 - 18.1 g/dl HISTORICAL RESULTS Hct 41.1 35.0 - 60.0 % HISTORICAL RESULTS MCV 85.0 80.0 - 100.0 fl HISTORICAL RESULTS MCH 27.7 27.0 - 31.0 pg HISTORICAL RESULTS MCHC 32.6(L) 33.0 - 37.0 g/dl HISTORICAL RESULTS Rdw 15.3(H) 11.5 - 14.6 % HISTORICAL RESULTS Platelets 283 150 - 400 K/cumm HISTORICAL RESULTS MPV 8.5 7.4 - 10.4 fl HISTORICAL RESULTS Lymphocytes 25.6 20.0 - 50.0 % HISTORICAL RESULTS Monos 12.2 1.0 - 13.0 % HISTORICAL RESULTS Neutrophils 62.2 30.0 - 70.0 % HISTORICAL RESULTS Lymphocytes, abs 1.4 0.9 - 5.3 K/cumm HISTORICAL RESULTS Monocytes, absolute 0.6 0.1 - 1.1 K/cumm HISTORICAL RESULTS Neutrophils, abs 3.3 1.3 - 7.4 K/cumm HISTORICAL RESULTS Blood specimen (specimen) 03/05/2013 1:20 PM CDT us Sparkle Colindres MD LAB BLOOD ORDERABLES Fin al Result Performing Organization Address [facility]/State/ZIP Co de Phone Number HISTORICAL RESULTS * Discharge Laboratory Cumulative Report (03/05/2013 12:00 AM CDT) 03/05/2013 Narrative HISTORICAL RESULTS - 05/05/2013 1:27 AM CDT Patient No: [id number] ? [facility] Patient Name: VILLA ALSTON ?[facility] Age: 67 YRS ?: 1945 ?Sex:M ?[address] )[phone] ?? Adm Dt: 03/05/2013 ?[place] ??[id number] Created: 05/05/2013 ??0127 ?? Pt. Type: D ? Discharge Dt: 03/05/2013 ? Pathologists: Brooklyn Ortiz MD Admit Dr. Vega Dr: SPARKLE COLINDRES MD ? BLOOD CELL COUNTS ?Collection Date: ?03/05/13 ?Collection Time: ?1320 ? Ref Range: ?? Units: [4.50-10.60] /CMM ? WBC X 10^3 ?5.30 [4.00-6.01] ??/CMM ? RBC X 10^6 ?4.84 [11.0-18.1] ??G/DL ? HGB ? 13.4 [35.0-60.0] ??% ?HCT ? 41.1 [80.0-100.0] FL ? MCV ? 85.0 [27.0-31.0] ??PG ? MCH ? 27.7 [33.0-37.0] ??% ?MCHC ?32.6 L [11.5-14.6] ??% ?RDW ? 15.3 H [150-400] ?? /CMM ? PLT X 10^3 ? 283 [7.4-10.4] ??FL ? MPV ?8.5 [20.0-50.0] ??% ?LYMPH PERCENT ? 25.6 [1.0-13.0] ??% ?MONO PERCENT ?12.2 [30.0-70.0] ??% ?GRANULOCYE % ?62.2 [0.9-5.3] ?? /CMM ? A LYMPH ?1.4 [1.3-7.4] ?? /CMM ? A GRANULOCYTE ?3.3 [0.1-1.1] ?? /CMM ? A MONO ? 0.6 ? GENERAL CHEMISTRY ?Collection Date: ?03/05/13 ?Collection Time: ?1320 ? Ref Range: ?? Units: [134-143] ?? MMOL/L ? SODIUM ? 140 [3.4-5.0] ?? MMOL/L ? POTASSIUM ?3.2 L [99.0-108.0] MMOL/L ? CHLORIDE ? 103.0 [23.0-32.0] ??MMOL/L ? TOTAL CO2 ? 26.2 ?? [7-14] ?MMOL/L ? ANION GAP ? 14 ??[70-110] ?? MG/DL ?GLUCOSE FASTING ?180 H [280-301] ?? MOSM/K ? CALCULATED OSMO ?286 [8.6-9.8] ?? MG/DL ?CALCIUM ?9.2 [6.0-23.0] ??MG/DL ?BUN ? 19.0 Footnotes and Symbols: L = Low, H = High ?? CONTINUED ?Page: ?? 1 Patient No: [id number] ? [facility] Patient Name: VILLA ALSTON ?[facility] Age: 67 YRS ?: 1945 ?Sex:M ?[address] )[phone] ?? Adm Dt: 03/05/2013 ?[place], [place] ??[id number] Created: 05/05/2013 ??0127 ?? Pt. Type: D ? Discharge Dt: 03/05/2013 ? Pathologists: Brooklyn Ortiz MD Admit Dr. Gary Aguilera: SPARKLE COLINDRES MD ? GENERAL CHEMISTRY ?Collection Date: ?03/05/13 ?Collection Time: ?1320 ? Ref Range: ?? Units: ??[10-20] ? B/C RATIO ? 20 [0.60-1.30] ??MG/DL ?CREATININE ?0.95 f ?03/05/13 1320 eGFR: >70 ml/min/1.73sq.m if non -Bhutanese. eGFR: >70 ml/min/1.73sq.m if -Bhutanese. AVE GFR for 60-69 yr. age group: ??85 ml/min/173sq.m Calculated using MDRD Equation FOOTNOTE ADDED ON ?? 03/05/13 ?? AT 1637 BY 999 Footnotes and Symbols: f = Footnote ?? END OF CHART ? Page: ?? 2 us Historical Provider LAB BLOOD ORDERABLES Iwona mackay Result HISTORICAL RESULTS documented in this encounter Visit Diagnoses Diagnosis Polycythemia vera (HCC) documented in this encounter Care Teams Nutritional Services Host Relationship Specialty Start Date End Date Wesley Em MD PCP - General 10/12/12 08/31/16 documented as of this encounter
--- OUTSIDE RECORDS SUMMARY | 2024-06-18 18:18 | XMS_ITS | Encounter Summary ---
Author Organization [facility] Healthcare Address [address] [place] [address] Care Team Providers Care Supervisor Vacuum Metalizing Name Role Phone Gene Em MD Primary Care Provider [phone] Encounter Details Date Type Department Care Team (Late st Contact Info) Description 03/13/2013 1:50 PM CDT - 03/13/2013 11:59 PM CDT Hospital Encounter [facility] Gene Lopez MD [address] [place] [id number] Microscopic hematuria; Calculus of kidney; Hypertrophy of prostate without urinary obstruction and other lower urinary tract symptoms (LUTS); Disorder of bladder; Diverticulosis of colon; Umbilical hernia Social History Tobacco Use Types Packs/Day Years Used Date Smoking Tobacco: Former Alcohol Use Standard Drinks/Week Comments No 0 (1 standard drink = 0.6 oz pur e alcohol) Sex and Gender Information Value Date Recorded Sex Assigned at Not on file 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 Gender Identity Not on file Sexual [...] Procedure Name Priority Date/Time Associated Diagnosis Comments UROGRAM W WO KUB W WO TOMOGRAM Routine 03/13/2013 3:00 PM CDT BLOOD CREATININE Routine 03/13/2013 2:00 PM CDT DISCHARGE LABORATORY CUMULATIVE REPORT Routine 03/13/2013 12:00 AM CDT documented in this encounter Results * XR Urogram W WO Kub W WO Tomogram (03/13/2013 3:00 PM CDT) Anatomical Region Laterality Modality Body, Abdomen N/A Radiographic Jennifer ging 03/13/2013 3:00 PM CDT Narrative 03/13/2013 9:[address] IVP Urogram W/WO [id number] ??Acc#: ??[id number] DATE OF EXAM: ??Mar 13 2013 CLINICAL HISTORY: Microscopic hematuria. RESULT: Serial axial images of the abdomen and pelvis were initially obtained without contrast followed by a CT study of the abdomen and pelvis with 100 ml Optiray 320 and then delayed images from the top of the kidneys through the urinary bladder per CT urography protocol. There are multiple nonobstructing stones within the lower poles of both kidneys, larger and more numerous on the left than the right. ??The largest individual stone on the left is approximately 9 mm. ??There is a 3.5 cm cyst in the lower pole of the left kidney and a 1 cm cyst medially in the upper pole of the left kidney, otherwise no cystic or solid renal masses are seen. ??There is no hydronephrosis. ??The opacified portions of the intrarenal collecting systems and ureters appear unremarkable. ??There is mild thickening of the wall of the urinary bladder but the prostate gland is moderately enlarged and there is mass effect exerted on the base of the bladder by the enlarged prostate gland. ??Thus the etiology of the bladder wall thickening is believed to be related to bladder outlet obstruction. The lung bases are clear bilaterally. There is a small pericardial effusion. ??There is a moderate degree of calcified and noncalcified plaque within a normal caliber abdominal aorta. ??The liver, gallbladder, spleen, pancreas, and adrenal glands ??appear unremarkable. There are no dilated loops of small or large bowel, free fluid collections or enlarged lymph nodes in the abdomen or in the pelvis. There are colon diverticula most notable in the sigmoid without CT changes of diverticulitis. ??There is a fat containing umbilical hernia. Appendix is normal. IMPRESSION: 1. MULTIPLE NONOBSTRUCTING BILATERAL, LEFT GREATER THAN RIGHT, LOWER POLE RENAL STONES. 2. LEFT RENAL CYSTS. 3. MODERATELY ENLARGED PROSTATE GLAND. ??THERE IS THICKENING OF THE URINARY BLADDER WALL BELIEVED TO BE ON THE BASIS OF BLADDER OUTLET OBSTRUCTION IN VIEW OF THE ENLARGED PROSTATE. 4. COLON DIVERTICULOSIS ESPECIALLY IN THE SIGMOID WITHOUT CHANGES OF DIVERTICULITIS. 5. FAT CONTAINING UMBILICAL HERNIA. 6. SMALL PERICARDIAL EFFUSION. Interpreting Physician: ??XAVIER TORRSE M.D. ??Read on: ??Mar 13 2013 ??3:49P Transcribed by: ??beena ??On: Mar 13 2013 ??5:02P Approved Electronically by: ??XAVIER TORRES M.D. ??on: ??Mar 13 2013 ??9:33P Ordering DR: DR GENE EM Attending DR: DR GENE EM Procedure Note Provider, MD Wilian - 10/22/2016 CT IVP Urogram W/WO [id number] Acc#: [id number] DATE OF EXAM: Mar 13 2013 CLINICAL HISTORY: Microscopic hematuria. RESULT: Serial axial images of the abdomen and pelvis were initially obtainedwithout contrast followed by a CT study of the abdomen and pelvis with 100ml Optiray 320 and then delayed images from the top of the kidneys throughthe urinary bladder per CT urography protocol. There are multiplenonobstructing stones within the lower poles of both kidneys, larger andmore numerous on the left than the right. The largest individual stone onthe left is approximately 9 mm. There is a 3.5 cm cyst in the lower pole of the left kidney and a 1 cm cyst mediallyin the upper pole of the left kidney, otherwise no cystic or solid renalmasses are seen. There is no hydronephrosis. The opacified portions ofthe intrarenal collecting systems and ureters appear unremarkable. Thereis mild thickening of the wall of the urinary bladder but the prostategland is moderately enlarged and there is mass effect exerted on the baseof the bladder by the enlarged prostate gland. Thus the etiology of thebladder wall thickening is believed to be related to bladder outletobstruction. The lung bases are clear bilaterally. There is a smallpericardial effusion. There is a moderate degree of calcified andnoncalcified plaque within a normal caliber abdominal aorta. The liver,gallbladder, spleen, pancreas, and adrenal glands appear unremarkable.There are no dilated loops of small or large bowel, free fluid collectionsor enlarged lymph nodes in the abdomen or in the pelvis. There are colon diverticula most notable in the sigmoid without CT changes ofdiverticulitis. There is a fat containing umbilical hernia. Appendix isnormal. IMPRESSION: 1. MULTIPLE NONOBSTRUCTING BILATERAL, LEFT GREATER THAN RIGHT, LOWER POLERENAL STONES. 2. LEFT RENAL CYSTS. 3. MODERATELY ENLARGED PROSTATE GLAND. THERE IS THICKENING OF THE URINARYBLADDER WALL BELIEVED TO BE ON THE BASIS OF BLADDER OUTLET OBSTRUCTION INVIEW OF THE ENLARGED PROSTATE. 4. COLON DIVERTICULOSIS ESPECIALLY IN THE SIGMOID WITHOUT CHANGES OFDIVERTICULITIS. 5. FAT CONTAINING UMBILICAL HERNIA. 6. SMALL PERICARDIAL EFFUSION. Interpreting Physician: XAVIER TORRES M.D. Read on: Mar 13 2013 3:49P Transcribed by: beena On: Mar 13 2013 5:02P Approved Electronically by: XAVIER TORRES M.D. on: Mar 13 2013 9:33P Ordering DR: DR GENE EM Attending DR: DR GENE EM Historical Provider MD CUELLAR FLUOROSCOPY PROCEDURE S Final Result * Blood creatinine (03/13/2013 2:00 PM CDT) Creatinine 0.96 0.60 - 1.30 mg/dl HISTORICAL RESULTS Blood specimen (specimen) 03/13/2013 2:00 PM CDT us Gene Em MD LAB BLOOD ORDERABLES Final Res ult HISTORICAL RESULTS * Discharge Laboratory Cumulative Report (03/13/2013 12:00 AM CDT) 03/13/2013 Narrative HISTORICAL RESULTS - 03/15/2013 12:27 AM CDT Patient No: [id number] ? [facility] Patient Name: VILLA ALSTON ?[facility] Healthcare Age: 67 YRS ?: 1945 ?Sex:M ?[address] )[id number] ?? Adm Dt: 03/13/2013 ?[place], [place] ??[address] Created: 03/15/2013 ??0027 ?? Pt. Type: R ? Discharge Dt: 03/13/2013 ? Pathologists: Brooklyn Ortiz MD Admit Attend Dr: GENE EM MD ? GENERAL CHEMISTRY ?Collection Date: ?03/13/13 ?Collection Time: ?1400 ? Ref Range: ?? Units: [0.60-1.30] ??MG/DL ?CREATININE ?0.96 ?? END OF CHART ? Page: ?? 1 us Historical Provider LAB BLOOD ORDERABLES Iwona l Result HISTORICAL RESULTS documented in this encounter Visit Diagnoses Diagnosis Microscopic hematuria Calculus of kidney Hypertrophy of prostate without urinary obstruction and other lower urinary tract symptoms (LUTS) Disorder of bladder Unspecified disorder of bladder Diverticulosis of colon Diverticulosis of colon (without mention of hemorrhage) Umbilical hernia Umbilical hernia without mention of obstruction or gangrene documented in this encounter Care Teams Supervisor Vacuum Metalizing Relationship Specialty Start Date End Date Gene Em MD PCP - General 10/12/12 08/31/16 documented as of this encounter
--- OUTSIDE RECORDS SUMMARY | 2024-06-18 18:18 | XMS_ITS | Encounter Summary ---
Author Organization [facility] Healthcare Address [address] [place] [address] Care Team Providers Care Wardrobe Mistress Name Role Phone Gene Em MD Primary Care Provider [phone] Encounter Details Date Type Department Care Team (Late st Contact Info) Description 08/20/2012 12:33 PM BELLMAN DRIVER - 08/20/2012 11:59 PM BELLMAN DRIVER Hospital Encounter [facility] Gene Em MD [address] [place] [id number] Essential hypertension Social History Tobacco Use Types Packs/Day Years Used Date Smoking Tobacco: Former Alcohol Use Standard Drinks/Week Comments No 0 (1 standard drink = 0.6 oz pur e alcohol) Sex and Gender Information Value Date Recorded Sex Assigned at Not on file 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 RESULT: Longitudinal and transverse scans were obtained. ??Kidneys are normal in size. ??Right kidney measures 11.7 X 6.0 X 6.4 cm; left kidney measures 12.7 X 6.5 X 5.3 cm. ??Somewhat diminished attenuation due to body habitus. ??No hydronephrosis. ??No mass or cyst was seen. ??On the prior study on the CT of the abdomen of 05/02/2007, a cyst was seen at the lower pole of the left kidney. ??This cyst could not be identified on the current examination. ??The urinary bladder is moderately distended with urine. IMPRESSION: UNREMARKABLE STUDY. ??NO HYDRONEPHROSIS. Interpreting Physician: ??REECE OLVERA M.D. ??Read on: ??Aug 20 2012 ??2:35P Transcribed by: ??VLR ??On: Aug 20 2012 ??4:12P Approved Electronically by: ??REECE OLVERA M.D. ??on: ??Aug 21 2012 10:20A Ordering DR: DR GENE EM Attending DR: DR GENE EM Procedure Note Provider, MD Wilian - 10/22/2016 US Kidney(s) [id number] Acc#: [id number] DATE OF EXAM: Aug 20 2012 CLINICAL HISTORY: Hypertension. RESULT: Longitudinal and transverse scans were obtained. Kidneys are normal insize. Right kidney measures 11.7 X 6.0 X 6.4 cm; left kidney measures 12.7 X 6.5 X 5.3 cm. Somewhat diminished attenuation due to body habitus.No hydronephrosis. No mass or cyst was seen. On the prior study on theCT of the abdomen of 05/02/2007, a cyst was seen at the lower pole of theleft kidney. This cyst could not be identified on the currentexamination. The urinary bladder is moderately distended with urine. IMPRESSION: UNREMARKABLE STUDY. NO HYDRONEPHROSIS. Interpreting Physician: REECE OLVERA M.D. Read on: Aug 20 2012 2:35P Transcribed by: EULALIO On: Aug 20 2012 4:12P Approved Electronically by: REECE OLVERA M.D. on: Aug 21 2012 10:20A Ordering DR: DR GENE EM Attending DR: DR GENE EM us Historical Provider MD CUELLAR US PROCEDURES Final R esult documented in this encounter Visit Diagnoses Diagnosis Essential hypertension Unspecified essential hypertension documented in this encounter Care Teams Wardrobe Mistress Relationship Specialty Start Date End Date Gene Em MD PCP - General 03/11/08 10/11/12 documented as of this encounter
--- OUTSIDE RECORDS SUMMARY | 2024-06-18 18:18 | XMS_ITS | Encounter Summary ---
Author Organization [facility] Healthcare Address [address] [place] [address] Care Team Providers Care Lead Nuclear Medicine Technologist Name Role Phone Unavailable Primary Care Provider Unavailabl e Encounter Details Date Type Department Care Team (Late st Contact Info) Description 07/14/2006 12:01 AM HYDROGRAPHIC SURVEYOR - 07/14/2006 11:59 PM HYDROGRAPHIC SURVEYOR Hospital Encounter [facility] Wesley Lopez MD [address] [place], [place] [id number] Social History Tobacco Use Types Packs/Day Years Used Date Smoking Tobacco: Never Assessed Sex and Gender Information Value Date Recorded Sex Assigned at Not on file Legal 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
--- OUTSIDE RECORDS SUMMARY | 2024-06-18 18:18 | XMS_ITS | Encounter Summary ---
Author Organization [facility] Healthcare Address [address] [place] [address] Care Team Providers Care Director Furniture Name Role Phone Wesley Em MD Primary Care Provider [phone] Wesley Em MD Primary Care Provider [phone] Encounter Details Date Type Department Care Team (Late st Contact Info) Description 08/02/2012 2:31 PM [facility] NURSE - 01/02/2013 11:59 PM CDT Hospital Encounter [facility] Colindres, Sparkle Steele MD [address] [place] [id number] Polycythemia vera (HCC) Social History Tobacco Use Types Packs/Day Years Used Date Smoking Tobacco: Former Alcohol Use Standard Drinks/Week Comments No 0 (1 standard drink = 0.6 oz pur e alcohol) Sex and Gender Information Value Date Recorded Sex Assigned at Not on file Legal Sex Male 6:00 PM POST ANEST[facility]ARE UN[facility] NURSE Gender Identity Not on file Sexual [...] Diagnosis Comments BLOOD CELL COUNT (CBC) Routine 3 8:08 AM CDT DISCHARGE LABORATORY CUMULATIVE REPORT Routine 01/02/2013 12:00 AM CDT BLOOD CELL COUNT (CBC) Routine 3 7:56 AM CDT BLOOD CELL COUNT (CBC) Routine 3 8:11 AM CDT BLOOD CELL COUNT (CBC) Routine 3 8:05 AM CDT BLOOD CELL COUNT (CBC) Routine 3 10:45 AM CDT BLOOD CELL COUNT (CBC) Routine 3 11:09 AM CDT SERUM BASIC METABOLIC PANEL Routine 09/27/2012 3:20 PM CDT BLOOD CELL COUNT (CBC) Routine 3 8:08 AM CDT BLOOD CELL COUNT (CBC) Routine 3 2:39 PM CDT BLOOD CELL COUNT (CBC) Routine 3 2:38 PM [facility]IA CARE UN[facility] NURSE BLOOD CELL COUNT (CBC) Routine 3 7:53 AM POST ANESTHESIA CARE UNIT NURSE BLOOD CELL COUNT (CBC) Routine 3 10:34 AM POST ANESTHESIA CARE UNIT NURSE BLOOD CELL COUNT (CBC) Routine 3 9:53 AM POST ANESTHESIA CARE UNIT NURSE BLOOD CELL COUNT (CBC) Routine 3 1:59 PM POST ANESTH[facility]IA CARE UNIT NURSE SERUM COMPREHENSIVE METABOLIC PANEL Routine 08/02/2012 3:00 PM POST ANESTHESIA CARE UNIT NURSE BLOOD WBC CELL MORPHOLOGIC EXAM, AUTO Routine 08/02/2012 3:00 PM POST ANESTHESIA CARE UNIT NURSE BLOOD CELL COUNT (CBC) Routine 3 3:00 PM POST ANESTH[facility]IA CARE UNIT NURSE REFERRED TEST, MISCELLANEOUS Routine 08/02/2012 9:00 AM POST ANESTHESIA CARE UNIT NURSE documented in this encounter Results * Blood cell count (CBC) (01/02/2013 8:08 AM CDT) WBC 5.1 4.5 - 10.6 K/cumm HISTORICAL RESULTS RBC 4.50 4.00 - 6.01 M/cumm HISTORICAL RESULTS Hgb 13.2 11.0 - 18.1 g/dl HISTORICAL RESULTS Hct 40.0 35.0 - 60.0 % HISTORICAL RESULTS MCV 88.9 80.0 - 100.0 fl HISTORICAL RESULTS MCH 29.3 27.0 - 31.0 pg HISTORICAL RESULTS MCHC 33.0 33.0 - 37.0 g/dl HISTORICAL RESULTS Rdw 12.6 11.5 - 14.6 % HISTORICAL RESULTS Platelets 243 150 - 400 K/cumm HISTORICAL RESULTS MPV 7.8 7.4 - 10.4 fl HISTORICAL RESULTS Lymphocytes 29.7 20.0 - 50.0 % HISTORICAL RESULTS Monos 12.2 1.0 - 13.0 % HISTORICAL RESULTS Neutrophils 58.1 30.0 - 70.0 % HISTORICAL RESULTS Lymphocytes, abs 1.5 0.9 - 5.3 K/cumm HISTORICAL RESULTS Monocytes, absolute 0.6 0.1 - 1.1 K/cumm HISTORICAL RESULTS Neutrophils, abs 3.0 1.3 - 7.4 K/cumm HISTORICAL RESULTS Blood specimen (specimen) 01/02/2013 8:08 AM CDT us Sparkle Colindres MD LAB BLOOD ORDERABLES Fin al Result HISTORICAL RESULTS * Discharge Laboratory Cumulative Report (01/02/2013 12:00 AM CDT) 01/02/2013 Narrative HISTORICAL RESULTS - 03/04/2013 12:26 AM CDT Patient No: [id number] ? [facility] Patient Name: VILLA ALSTON ?[facility] Age: 67 YRS ?: 1945 ?Sex:M ?[address] )[phone] ?? Adm Dt: 08/02/2012 ?[place], [place] ??[address] Created: 03/04/2013 ??0026 ?? Pt. Type: D ? Discharge Dt: 01/02/2013 ? Pathologists: Brooklyn Ortiz MD Admit Attend : SPARKLE COLINDRES MD ? BLOOD CELL COUNTS ?Collection Date: ?01/02/13 ? 12/06/12 ?Collection Time: ?0808 ? 0756 ? Ref Range: ?? Units: [4.50-10.60] /CMM ? WBC X 10^3 ?5.10 ? 7.80 [4.00-6.01] ??/CMM ? RBC X 10^6 ?4.50 ? 4.58 [11.0-18.1] ??G/DL ? HGB ? 13.2 ? 14.1 [35.0-60.0] ??% ?HCT ? 40.0 ? 40.8 [80.0-100.0] FL ? MCV ? 88.9 ? 89.0 [27.0-31.0] ??PG ? MCH ? 29.3 ? 30.8 [33.0-37.0] ??% ?MCHC ?33.0 ? 34.6 [11.5-14.6] ??% ?RDW ? 12.6 ? 11.8 [150-400] ?? /CMM ? PLT X 10^3 ? 243 ?266 [7.4-10.4] ??FL ? MPV ?7.8 ?7.7 [20.0-50.0] ??% ?LYMPH PERCENT ? 29.7 ? 17.0 L [1.0-13.0] ??% ?MONO PERCENT ?12.2 ?9.1 [30.0-70.0] ??% ?GRANULOCYE % ?58.1 ? 73.9 H [0.9-5.3] ?? /CMM ? A LYMPH ?1.5 ?1.3 [1.3-7.4] ?? /CMM ? A GRANULOCYTE ?3.0 ?5.8 [0.1-1.1] ?? /CMM ? A MONO ? 0.6 ?0.7 ?Collection Date: ?11/08/12 ? 10/25/12 ?Collection Time: ?0811 ? 0805 ? Ref Range: ?? Units: [4.50-10.60] /CMM ? WBC X 10^3 ?5.70 ? 5.60 [4.00-6.01] ??/CMM ? RBC X 10^6 ?4.40 ? 4.12 [11.0-18.1] ??G/DL ? HGB ? 14.3 ? 13.7 [35.0-60.0] ??% ?HCT ? 42.0 ? 39.3 [80.0-100.0] FL ? MCV ? 95.5 ? 95.5 [27.0-31.0] ??PG ? MCH ? 32.5 H ? 33.3 H [33.0-37.0] ??% ?MCHC ?34.0 ? 34.9 [11.5-14.6] ??% ?RDW ? 12.8 ? 11.6 [150-400] ?? /CMM ? PLT X 10^3 ? 278 ?257 [7.4-10.4] ??FL ? MPV ?8.0 ?7.6 [20.0-50.0] ??% ?LYMPH PERCENT ? 24.7 ? 26.4 [1.0-13.0] ??% ?MONO PERCENT ?10.5 ? 10.1 [30.0-70.0] ??% ?GRANULOCYE % ?64.8 ? 63.5 Footnotes and Symbols: L = Low, H = High ?? CONTINUED ?Page: ?? 1 Patient No: [id number] ? [facility] Patient Name: VILLA ALSTON ?[facility] Age: 67 YRS ?: 1945 ?Sex:M ?[address] )[phone] ?? Adm Dt: 08/02/2012 ?[place], [place] ??[address] Created: 03/04/2013 ??0026 ?? Pt. Type: D ? Discharge Dt: 01/02/2013 ? Pathologists: Brooklyn Ortiz MD Admit Attend Dr: SPARKLE COLINDRES MD ? BLOOD CELL COUNTS ?Collection Date: ?11/08/12 ? 10/25/12 ?Collection Time: ?0811 ? 0805 ? Ref Range: ?? Units: [0.9-5.3] ?? /CMM ? A LYMPH ?1.4 ?1.5 [1.3-7.4] ?? /CMM ? A GRANULOCYTE ?3.7 ?3.6 [0.1-1.1] ?? /CMM ? A MONO ? 0.6 ?0.6 ?Collection Date: ?10/18/12 ? 10/11/12 ?Collection Time: ?1045 ? 1109 ? Ref Range: ?? Units: [4.50-10.60] /CMM ? WBC X 10^3 ?5.00 ? 4.80 [4.00-6.01] ??/CMM ? RBC X 10^6 ?4.40 ? 4.57 [11.0-18.1] ??G/DL ? HGB ? 14.7 ? 15.5 [35.0-60.0] ??% ?HCT ? 43.5 ? 45.8 [80.0-100.0] FL ? MCV ? 98.8 ?100.3 H [27.0-31.0] ??PG ? MCH ? 33.4 H ? 33.9 H [33.0-37.0] ??% ?MCHC ?33.8 ? 33.8 [11.5-14.6] ??% ?RDW ? 11.9 ? 12.3 [150-400] ?? /CMM ? PLT X 10^3 ? 235 ?276 [7.4-10.4] ??FL ? MPV ?7.8 ?7.3 L [20.0-50.0] ??% ?LYMPH PERCENT ? 24.9 ? 29.4 [1.0-13.0] ??% ?MONO PERCENT ?12.3 ? 12.4 [30.0-70.0] ??% ?GRANULOCYE % ?62.8 ? 58.2 [0.9-5.3] ?? /CMM ? A LYMPH ?1.4 ?1.4 [1.3-7.4] ?? /CMM ? A GRANULOCYTE ?3.5 ?2.8 [0.1-1.1] ?? /CMM ? A MONO ? 0.7 ?0.6 Footnotes and Symbols: L = Low, H = High ?? CONTINUED ?Page: ?? 2 Patient No: [id number] ? [facility] Patient Name: VILLA ALSTON ?[facility] Age: 67 YRS ?: 1945 ?Sex:M ?[address] )[phone] ?? Adm Dt: 08/02/2012 ?[place] ??[id number] Created: 03/04/2013 ??0026 ?? Pt. Type: D ? Discharge Dt: 01/02/2013 ? Pathologists: Brooklyn Ortiz MD Admit Attend Dr: SPARKLE COLINDRES MD ? BLOOD CELL COUNTS ?Collection Date: ?09/27/12 ? 09/19/12 ?Collection Time: ?0808 ? 1439 ? Ref Range: ?? Units: [4.50-10.60] /CMM ? WBC X 10^3 ?6.40 ? 7.10 [4.00-6.01] ??/CMM ? RBC X 10^6 ?4.10 ? 4.82 [11.0-18.1] ??G/DL ? HGB ? 14.0 ? 16.3 [35.0-60.0] ??% ?HCT ? 41.7 ? 48.2 [80.0-100.0] FL ? MCV ?101.8 H ? 99.9 [27.0-31.0] ??PG ? MCH ? 34.1 H ? 33.8 H [33.0-37.0] ??% ?MCHC ?33.6 ? 33.8 [11.5-14.6] ??% ?RDW ? 12.9 ? 12.8 [150-400] ?? /CMM ? PLT X 10^3 ? 229 ?279 [7.4-10.4] ??FL ? MPV ?7.0 L ?7.9 [20.0-50.0] ??% ?LYMPH PERCENT ? 22.7 ? 25.6 [1.0-13.0] ??% ?MONO PERCENT ? 9.4 ? 12.0 [30.0-70.0] ??% ?GRANULOCYE % ?67.9 ? 62.4 [0.9-5.3] ?? /CMM ? A LYMPH ?1.5 ?1.8 [1.3-7.4] ?? /CMM ? A GRANULOCYTE ?4.3 ?4.4 [0.1-1.1] ?? /CMM ? A MONO ? 0.6 ?0.9 ?Collection Date: ?09/06/12 ? 08/30/12 ?Collection Time: ?1438 ? 0753 ? Ref Range: ?? Units: [4.50-10.60] /CMM ? WBC X 10^3 ?8.00 ? 7.00 [4.00-6.01] ??/CMM ? RBC X 10^6 ?5.13 ? 4.94 [11.0-18.1] ??G/DL ? HGB ? 17.5 ? 17.1 [35.0-60.0] ??% ?HCT ? 51.0 ? 49.1 [80.0-100.0] FL ? MCV ? 99.4 ? 99.3 [27.0-31.0] ??PG ? MCH ? 34.1 H ? 34.6 H [33.0-37.0] ??% ?MCHC ?34.3 ? 34.8 [11.5-14.6] ??% ?RDW ? 13.8 ? 12.3 [150-400] ?? /CMM ? PLT X 10^3 ? 256 ?244 [7.4-10.4] ??FL ? MPV ?7.9 ?8.0 [20.0-50.0] ??% ?LYMPH PERCENT ? 24.7 ? 32.4 [1.0-13.0] ??% ?MONO PERCENT ?13.9 H ? 11.9 [30.0-70.0] ??% ?GRANULOCYE % ?61.4 ? 55.7 Footnotes and Symbols: L = Low, H = High ?? CONTINUED ?Page: ?? 3 Patient No: [id number] ? [facility] Patient Name: VILLA ALSTON ?[facility] Age: 67 YRS ?: 1945 ?Sex:M ?[address] )[phone] ?? Adm Dt: 08/02/2012 ?[place], [place] ??[id number] Created: 03/04/2013 ??0026 ?? Pt. Type: D ? Discharge Dt: 01/02/2013 ? Pathologists: Brooklyn Ortiz MD Admit Attend Dr: SPARKLE COLINDRES MD ? BLOOD CELL COUNTS ?Collection Date: ?09/06/12 ? 08/30/12 ?Collection Time: ?1438 ? 0753 ? Ref Range: ?? Units: [0.9-5.3] ?? /CMM ? A LYMPH ?2.0 ?2.3 [1.3-7.4] ?? /CMM ? A GRANULOCYTE ?4.9 ?3.9 [0.1-1.1] ?? /CMM ? A MONO ? 1.1 ?0.8 ?Collection Date: ?08/23/12 ? 08/16/12 ?Collection Time: ?1034 ? 0953 ? Ref Range: ?? Units: [4.50-10.60] /CMM ? WBC X 10^3 ?5.90 ? 5.30 [4.00-6.01] ??/CMM ? RBC X 10^6 ?4.88 ? 5.09 [11.0-18.1] ??G/DL ? HGB ? 16.8 ? 17.4 [35.0-60.0] ??% ?HCT ? 48.8 ? 51.0 [80.0-100.0] FL ? MCV ? 99.9 ?100.1 H [27.0-31.0] ??PG ? MCH ? 34.4 H ? 34.2 H [33.0-37.0] ??% ?MCHC ?34.4 ? 34.1 [11.5-14.6] ??% ?RDW ? 13.4 ? 12.6 [150-400] ?? /CMM ? PLT X 10^3 ? 189 ?206 [7.4-10.4] ??FL ? MPV ?8.1 ?8.1 [20.0-50.0] ??% ?LYMPH PERCENT ? 30.0 ? 23.9 [1.0-13.0] ??% ?MONO PERCENT ?12.4 ? 10.1 [30.0-70.0] ??% ?GRANULOCYE % ?57.6 ? 66.0 [0.9-5.3] ?? /CMM ? A LYMPH ?1.8 ?1.3 [1.3-7.4] ?? /CMM ? A GRANULOCYTE ?3.4 ?3.5 [0.1-1.1] ?? /CMM ? A MONO ? 0.7 ?0.5 Footnotes and Symbols: H = High ?? CONTINUED ?Page: ?? 4 Patient No: [id number] ? [facility] Patient Name: VILLA ALSTON ?[facility] Age: 67 YRS ?: 1945 ?Sex:M ?[address] )[phone] ?? Adm Dt: 08/02/2012 ?[place] ??[id number] Created: 03/04/2013 ??0026 ?? Pt. Type: D ? Discharge Dt: 01/02/2013 ? Pathologists: Brooklyn Ortiz MD Admit Attend Dr: SPARKLE COLINDRES MD ? BLOOD CELL COUNTS ?Collection Date: ?08/09/12 ? 08/02/12 ?Collection Time: ?1359 ? 1500 ? Ref Range: ?? Units: [4.00-10.50] /CMM ? WBC X 10^3 ? 6.98 [4.50-10.60] /CMM ? WBC X 10^3 ?6.10 [4.60-6.20] ??/CMM ? RBC X 10^6 ? 5.34 [4.00-6.01] ??/CMM ? RBC X 10^6 ?5.17 [14.0-18.0] ??G/DL ? HGB ?17.3 [11.0-18.1] ??G/DL ? HGB ? 17.5 [40.0-54.0] ??% ?HCT ?48.1 [35.0-60.0] ??% ?HCT ? 52.1 [77.0-97.0] ??FL ? MCV ?90.1 [80.0-100.0] FL ? MCV ?100.8 H [23.0-34.0] ??PG ? MCH ?32.4 [27.0-31.0] ??PG ? MCH ? 33.8 H [32.0-36.0] ??% ?MCHC ? 36.0 [33.0-37.0] ??% ?MCHC ?33.6 [11.5-14.5] ??% ?RDW ?13.1 [11.5-14.6] ??% ?RDW ? 13.4 [150-451] ?? /CMM ? PLT X 10^3 ?216 [150-400] ?? /CMM ? PLT X 10^3 ? 213 [7.4-10.4] ??FL ? MPV ?8.1 [20.0-50.0] ??% ?LYMPH PERCENT ? 23.1 [1.0-13.0] ??% ?MONO PERCENT ?10.8 [30.0-70.0] ??% ?GRANULOCYE % ?66.1 [0.9-5.3] ?? /CMM ? A LYMPH ?1.4 [1.3-7.4] ?? /CMM ? A GRANULOCYTE ?4.0 Footnotes and Symbols: H = High ?? CONTINUED ?Page: ?? 5 Patient No: [id number] ? [facility] Patient Name: VILLA ALSTON ?[facility] Age: 67 YRS ?: 1945 ?Sex:M ?[address] )[phone] ?? Adm Dt: 08/02/2012 ?[place] ??[id number] Created: 03/04/2013 ??0026 ?? Pt. Type: D ? Discharge Dt: 01/02/2013 ? Pathologists: Brooklyn Ortiz MD Admit Attend : SPARKLE COLINDRES MD ? BLOOD CELL COUNTS ?Collection Date: ?08/09/12 ? 08/02/12 ?Collection Time: ?1359 ? 1500 ? Ref Range: ?? Units: [0.1-1.1] ?? /CMM ? A MONO ? 0.7 ?BLOOD CELL DIFFERENTIAL ?Collection Date: ?01/31/13 ?Collection Time: ?1500 ? Ref Range: ?? Units: [54.0-69.0] ??% ?NEUTROPHILS ? 62.5 [25.0-33.0] ??% ?LYMPHOCYTES ? 23.2 L [1.0-13.0] ??% ?MONOCYTES ?8.6 [0.0-10.0] ??% ?EOSINOPHILS ?3.3 [0.0-1.0] ?? % ?BASOPHILS ?2.0 H ? /CMM ? A LYMPHOCYTE ? 1.6 ? % ?IMM GRAN % ? 0.4 ? /CMM ? A IMM GRAN ? 0.3 ? /CMM ? A MONOCYTE ? 0.6 ? /CMM ? A NEUTROPHIL ? 4.4 ? /CMM ? A EOSINOPHIL ? 0.2 ? /CMM ? A BASOPHIL ? 0.1 Footnotes and Symbols: L = Low, H = High ?? CONTINUED ?Page: ?? 6 Patient No: [id number] ? [facility] Patient Name: VILLA ALSTON ?[facility] Age: 67 YRS ?: 1945 ?Sex:M ?[address] )[phone] ?? Adm Dt: 08/02/2012 ?[place], [place] ??[address] Created: 03/04/2013 ??0026 ?? Pt. Type: D ? Discharge Dt: 01/02/2013 ? Pathologists: Brooklyn Ortiz MD Admit Attend Dr: SPARKLE COLINDRES MD ? GENERAL CHEMISTRY ?Collection Date: ?09/27/12 ? 08/02/12 ?Collection Time: ?1520 ? 1500 ? Ref Range: ?? Units: [134-143] ?? MMOL/L ? SODIUM ? 138 ?136 [3.4-5.0] ?? MMOL/L ? POTASSIUM ?4.2 ?3.5 f ?08/02/12 1500 HEMOLYSIS PRESENT POTASSIUM MAY BE FALSELY ELEVATED FOOTNOTE ADDED ON ?? 08/02/12 ?? AT 1611 BY 999 [99.0-108.0] MMOL/L ? CHLORIDE ? 104.0 ? 99.0 [23.0-32.0] ??MMOL/L ? TOTAL CO2 ? 26.2 ? 26.3 ?? [7-14] ?MMOL/L ? ANION GAP ? 12 ? 14 ??[70-110] ?? MG/DL ?GLUCOSE FASTING ?177 H ?255 H [280-301] ?? MOSM/K ? CALCULATED OSMO ?281 [6.4-8.0] ?? G/DL ? TOTAL PROTEIN ? 7.0 [3.3-4.5] ?? G/DL ? ALBUMIN ? 3.8 [1.1-1.8] ?A/G RATIO ? 1.2 [8.6-9.8] ?? MG/DL ?CALCIUM ?9.1 ?8.7 [0.0-1.1] ?? MG/DL ?BILI TOTAL ?0.4 ??[44-125] ?? U/L ?ALK PHOS ?104 ?? [4-32] ?U/L ?AST(SGOT) ?23 f ?08/02/12 1500 HEMOLYSIS PRESENT AST(SGOT) MAY BE FALSELY ELEVATED FOOTNOTE ADDED ON ?? 08/02/12 ?? AT 1611 BY 999 ??[16-66] ?U/L ?ALT(SGPT) ?52 [6.0-23.0] ??MG/DL ?BUN ? 15.0 ? 15.0 ??[10-20] ? B/C RATIO ? 16 ? 14 Footnotes and Symbols: H = High, f = Footnote ?? CONTINUED ?Page: ?? 7 Patient No: [id number] ? [facility] Patient Name: VILLA ALSTON ?[facility] Age: 67 YRS ?: 1945 ?Sex:M ?[address] )[phone] ?? Adm Dt: 08/02/2012 ?[place] ??[address] Created: 03/04/2013 ??0026 ?? Pt. Type: D ? Discharge Dt: 01/02/2013 ? Pathologists: Brooklyn Ortiz MD Admit Attend Dr: SPARKLE COLINDRES MD ? GENERAL CHEMISTRY ?Collection Date: ?09/27/12 ? 08/02/12 ?Collection Time: ?1520 ? 1500 ? Ref Range: ?? Units: [0.60-1.30] ??MG/DL ?CREATININE ?0.96 f ? 1.05 f ?09/27/12 1520 eGFR: >70 ml/min/1.73sq.m if non -Citizen Of The [place]. eGFR: >70 ml/min/1.73sq.m if -Citizen Of The [place]. AVE GFR for 60-69 yr. age group: ??85 ml/min/173sq.m Calculated using MDRD Equation FOOTNOTE ADDED ON ?? 09/27/12 ?? AT 1646 BY 999 ?08/02/12 1500 eGFR: >70 ml/min/1.73sq.m if non -Citizen Of [place]. eGFR: >70 ml/min/1.73sq.m if -Citizen Of The [place]. AVE GFR for 60-69 yr. age group: ??85 ml/min/173sq.m Calculated using MDRD Equation FOOTNOTE ADDED ON ?? 08/02/12 ?? AT 1611 BY 999 Footnotes and Symbols: f = Footnote ?? CONTINUED ?Page: ?? 8 Patient No: [id number] ? [facility] Patient Name: VILLA ALSTON ?[facility] Age: 67 YRS ?: 1945 ?Sex:M ?[address] )[phone] ?? Adm Dt: 08/02/2012 ?[place] ??[id number] Created: 03/04/2013 ??0026 ?? Pt. Type: D ? Discharge Dt: 01/02/2013 ? Pathologists: Brooklyn Ortiz MD Admit Attend : SPARKLE COLINDRES MD ?[facility] ?Collection Date: ?08/02/12 ?Collection Time: ?1500 ? Ref Range: ?? Units: ?[facility] @ ? SEE FN f Footnotes and Symbols: f = Footnote @ = [facility] Performed at ??[facility] [place] [place] [facility] 08/02/12 1500 ?HI ? Expected Test ? Result ??LO ??Units ??Values JAK2 V617F Mutation Detection, B ? SEE FN ? Peripheral blood, JAK2 V617F mutation analysis: ? Negative for JAK2 V617F. ? Signing Pathologist: Ford Jack M.D. ? Laboratory developed test. ?? Method: ?SEE FN ? JAK2 V617F analysis: Genomic DNA was extracted and a ? quantitative, allele-specific polymerase chain reaction ? (PCR) assay used to evaluate for the point mutation causing ? JAK2 V617F (see [facility] Interpretive ? Handbook for method details). ?? Reviewed By: ? Ford Jack M.D. ?? HPGDE, DNA Extraction ?Performed ?? Interpretation and Report ?Performed ?? END OF CHART ? Page: ?? 9 us Historical Provider MD LAB BLOOD ORDERABLES Iwona mackay Result HISTORICAL RESULTS * (ABNORMAL) Blood cell count (CBC) (12/06/2012 7:56 AM CDT) WBC 7.8 4.5 - 10.6 K/cumm HISTORICAL RESULTS RBC 4.58 4.00 - 6.01 M/cumm HISTORICAL RESULTS Hgb 14.1 11.0 - 18.1 g/dl HISTORICAL RESULTS Hct 40.8 35.0 - 60.0 % HISTORICAL RESULTS MCV 89.0 80.0 - 100.0 fl HISTORICAL RESULTS MCH 30.8 27.0 - 31.0 pg HISTORICAL RESULTS MCHC 34.6 33.0 - 37.0 g/dl HISTORICAL RESULTS Rdw 11.8 11.5 - 14.6 % HISTORICAL RESULTS Platelets 266 150 - 400 K/cumm HISTORICAL RESULTS MPV 7.7 7.4 - 10.4 fl HISTORICAL RESULTS Lymphocytes 17.0(L) 20.0 - 50.0 % HISTORICAL RESULTS Monos 9.1 1.0 - 13.0 % HISTORICAL RESULTS Neutrophils 73.9(H) 30.0 - 70.0 % HISTORICAL RESULTS Lymphocytes, abs 1.3 0.9 - 5.3 K/cumm HISTORICAL RESULTS Monocytes, absolute 0.7 0.1 - 1.1 K/cumm HISTORICAL RESULTS Neutrophils, abs 5.8 1.3 - 7.4 K/cumm HISTORICAL RESULTS Blood specimen (specimen) 12/06/2012 7:56 AM CDT Sparkle Colindres MD LAB BLOOD ORDERABLES Fin al Result Performing Organization Address [facility] de Phone Number HISTORICAL RESULTS * (ABNORMAL) Blood cell count (CBC) (11/08/2012 8:11 AM CDT) Platelets 278 150 - 400 K/cumm HISTORICAL RESULTS WBC 5.7 4.5 - 10.6 K/cumm HISTORICAL RESULTS MPV 8.0 7.4 - 10.4 fl HISTORICAL RESULTS RBC 4.40 4.00 - 6.01 M/cumm HISTORICAL RESULTS Lymphocytes 24.7 20.0 - 50.0 % HISTORICAL RESULTS Hgb 14.3 11.0 - 18.1 g/dl HISTORICAL RESULTS Monos 10.5 1.0 - 13.0 % HISTORICAL RESULTS Hct 42.0 35.0 - 60.0 % HISTORICAL RESULTS Neutrophils 64.8 30.0 - 70.0 % HISTORICAL RESULTS MCV 95.5 80.0 - 100.0 fl HISTORICAL RESULTS Lymphocytes, abs 1.4 0.9 - 5.3 K/cumm HISTORICAL RESULTS MCH 32.5(H) 27.0 - 31.0 pg HISTORICAL RESULTS Monocytes, absolute 0.6 0.1 - 1.1 K/cumm HISTORICAL RESULTS MCHC 34.0 33.0 - 37.0 g/dl HISTORICAL RESULTS Neutrophils, abs 3.7 1.3 - 7.4 K/cumm HISTORICAL RESULTS Rdw 12.8 11.5 - 14.6 % HISTORICAL RESULTS Blood specimen (specimen) 11/08/2012 8:11 AM CDT Sparkle Colindres MD LAB BLOOD ORDERABLES Fin al Result Performing Organization Address [facility] de Phone Number HISTORICAL RESULTS * (ABNORMAL) Blood cell count (CBC) (10/25/2012 8:05 AM CDT) WBC 5.6 4.5 - 10.6 K/cumm HISTORICAL RESULTS RBC 4.12 4.00 - 6.01 M/cumm HISTORICAL RESULTS Hgb 13.7 11.0 - 18.1 g/dl HISTORICAL RESULTS Hct 39.3 35.0 - 60.0 % HISTORICAL RESULTS MCV 95.5 80.0 - 100.0 fl HISTORICAL RESULTS MCH 33.3(H) 27.0 - 31.0 pg HISTORICAL RESULTS MCHC 34.9 33.0 - 37.0 g/dl HISTORICAL RESULTS Rdw 11.6 11.5 - 14.6 % HISTORICAL RESULTS Platelets 257 150 - 400 K/cumm HISTORICAL RESULTS MPV 7.6 7.4 - 10.4 fl HISTORICAL RESULTS Lymphocytes 26.4 20.0 - 50.0 % HISTORICAL RESULTS Monos 10.1 1.0 - 13.0 % HISTORICAL RESULTS Neutrophils 63.5 30.0 - 70.0 % HISTORICAL RESULTS Lymphocytes, abs 1.5 0.9 - 5.3 K/cumm HISTORICAL RESULTS Monocytes, absolute 0.6 0.1 - 1.1 K/cumm HISTORICAL RESULTS Neutrophils, abs 3.6 1.3 - 7.4 K/cumm HISTORICAL RESULTS Blood specimen (specimen) 10/25/2012 8:05 AM CDT Sparkle Colindres MD LAB BLOOD ORDERABLES Fin al Result HISTORICAL RESULTS * (ABNORMAL) Blood cell count (CBC) (10/18/2012 10:45 AM CDT) WBC 5.0 4.5 - 10.6 K/cumm HISTORICAL RESULTS RBC 4.40 4.00 - 6.01 M/cumm HISTORICAL RESULTS Hgb 14.7 11.0 - 18.1 g/dl HISTORICAL RESULTS Hct 43.5 35.0 - 60.0 % HISTORICAL RESULTS MCV 98.8 80.0 - 100.0 fl HISTORICAL RESULTS MCH 33.4(H) 27.0 - 31.0 pg HISTORICAL RESULTS MCHC 33.8 33.0 - 37.0 g/dl HISTORICAL RESULTS Rdw 11.9 11.5 - 14.6 % HISTORICAL RESULTS Platelets 235 150 - 400 K/cumm HISTORICAL RESULTS MPV 7.8 7.4 - 10.4 fl HISTORICAL RESULTS Lymphocytes 24.9 20.0 - 50.0 % HISTORICAL RESULTS Monos 12.3 1.0 - 13.0 % HISTORICAL RESULTS Neutrophils 62.8 30.0 - 70.0 % HISTORICAL RESULTS Lymphocytes, abs 1.4 0.9 - 5.3 K/cumm HISTORICAL RESULTS Monocytes, absolute 0.7 0.1 - 1.1 K/cumm HISTORICAL RESULTS Neutrophils, abs 3.5 1.3 - 7.4 K/cumm HISTORICAL RESULTS Blood specimen (specimen) 10/18/2012 10:45 AM CDT Sparkle Colindres MD LAB BLOOD ORDERABLES Fin al Result HISTORICAL RESULTS * (ABNORMAL) Blood cell count (CBC) (10/11/2012 11:09 AM CDT) WBC 4.8 4.5 - 10.6 K/cumm HISTORICAL RESULTS Hct 45.8 35.0 - 60.0 % HISTORICAL RESULTS RBC 4.57 4.00 - 6.01 M/cumm HISTORICAL RESULTS MCV 100.3(H) 80.0 - 100.0 fl HISTORICAL RESULTS Hgb 15.5 11.0 - 18.1 g/dl HISTORICAL RESULTS MCH 33.9(H) 27.0 - 31.0 pg HISTORICAL RESULTS MCHC 33.8 33.0 - 37.0 g/dl HISTORICAL RESULTS Rdw 12.3 11.5 - 14.6 % HISTORICAL RESULTS Platelets 276 150 - 400 K/cumm HISTORICAL RESULTS MPV 7.3(L) 7.4 - 10.4 fl HISTORICAL RESULTS Lymphocytes 29.4 20.0 - 50.0 % HISTORICAL RESULTS Monos 12.4 1.0 - 13.0 % HISTORICAL RESULTS Neutrophils 58.2 30.0 - 70.0 % HISTORICAL RESULTS Lymphocytes, abs 1.4 0.9 - 5.3 K/cumm HISTORICAL RESULTS Monocytes, absolute 0.6 0.1 - 1.1 K/cumm HISTORICAL RESULTS Neutrophils, abs 2.8 1.3 - 7.4 K/cumm HISTORICAL RESULTS Blood specimen (specimen) 10/11/2012 11:09 AM CDT Sparkle Colindres MD LAB BLOOD ORDERABLES Ziggy dunham Result Performing Organization Address [facility] de Phone Number HISTORICAL RESULTS * (ABNORMAL) Serum basic metabolic panel (09/27/2012 3:20 PM CDT) BUN 15.0 6.0 - 23.0 mg/dl HISTORICAL RESULTS Sodium 138 134 - 143 mmol/L HISTORICAL RESULTS Potassium, sr 4.2 3.4 - 5.0 mmol/L HISTORICAL RESULTS Chloride 104 99 - 108 mmol/L HISTORICAL RESULTS CO2 26 23 - 32 mmol/L HISTORICAL RESULTS Glucose, fasting 177(H) 70 - 110 mg/dl HISTORICAL RESULTS Creatinine 0.96 0.60 - 1.30 mg/dl HISTORICAL RESULTS Comment: eGFR: >70 ml/min/1.73sq.m if non -Citizen Of The [place]. eGFR: >70 ml/min/1.73sq.m if -Citizen Of The [place]. AVE GFR for 60-69 yr. age group: ??85 ml/min/173sq.m Calculated using MDRD Equation BUN/creat ratio 16 10 - 20 HIST ORICAL RESULTS A. gap 12 7 - 14 mmol/L HISTORICAL RESULTS Osmo, calc 281 280 - 301 mOsm/kg HISTORICAL RESULTS Calcium 9.1 8.6 - 9.8 mg/dl HISTORICAL RESULTS Serum 09/27/2012 3:20 PM CDT Sparkle Colindres MD LAB BLOOD ORDERABLES Ziggy dunham Result Performing Organization Address [facility] de Phone Number HISTORICAL RESULTS * (ABNORMAL) Blood cell count (CBC) (09/27/2012 8:08 AM CDT) WBC 6.4 4.5 - 10.6 K/cumm HISTORICAL RESULTS RBC 4.10 4.00 - 6.01 M/cumm HISTORICAL RESULTS Hgb 14.0 11.0 - 18.1 g/dl HISTORICAL RESULTS Hct 41.7 35.0 - 60.0 % HISTORICAL RESULTS MCV 101.8(H) 80.0 - 100.0 fl HISTORICAL RESULTS MCH 34.1(H) 27.0 - 31.0 pg HISTORICAL RESULTS MCHC 33.6 33.0 - 37.0 g/dl HISTORICAL RESULTS Rdw 12.9 11.5 - 14.6 % HISTORICAL RESULTS Platelets 229 150 - 400 K/cumm HISTORICAL RESULTS MPV 7.0(L) 7.4 - 10.4 fl HISTORICAL RESULTS Lymphocytes 22.7 20.0 - 50.0 % HISTORICAL RESULTS Monos 9.4 1.0 - 13.0 % HISTORICAL RESULTS Neutrophils 67.9 30.0 - 70.0 % HISTORICAL RESULTS Lymphocytes, abs 1.5 0.9 - 5.3 K/cumm HISTORICAL RESULTS Monocytes, absolute 0.6 0.1 - 1.1 K/cumm HISTORICAL RESULTS Neutrophils, abs 4.3 1.3 - 7.4 K/cumm HISTORICAL RESULTS Blood specimen (specimen) 09/27/2012 8:08 AM CDT Sparkle Colindres MD LAB BLOOD ORDERABLES Fin al Result HISTORICAL RESULTS * (ABNORMAL) Blood cell count (CBC) (09/19/2012 2:39 PM CDT) WBC 7.1 4.5 - 10.6 K/cumm HISTORICAL RESULTS RBC 4.82 4.00 - 6.01 M/cumm HISTORICAL RESULTS Hgb 16.3 11.0 - 18.1 g/dl HISTORICAL RESULTS Hct 48.2 35.0 - 60.0 % HISTORICAL RESULTS MCV 99.9 80.0 - 100.0 fl HISTORICAL RESULTS MCH 33.8(H) 27.0 - 31.0 pg HISTORICAL RESULTS MCHC 33.8 33.0 - 37.0 g/dl HISTORICAL RESULTS Rdw 12.8 11.5 - 14.6 % HISTORICAL RESULTS Platelets 279 150 - 400 K/cumm HISTORICAL RESULTS MPV 7.9 7.4 - 10.4 fl HISTORICAL RESULTS Lymphocytes 25.6 20.0 - 50.0 % HISTORICAL RESULTS Monos 12.0 1.0 - 13.0 % HISTORICAL RESULTS Neutrophils 62.4 30.0 - 70.0 % HISTORICAL RESULTS Lymphocytes, abs 1.8 0.9 - 5.3 K/cumm HISTORICAL RESULTS Monocytes, absolute 0.9 0.1 - 1.1 K/cumm HISTORICAL RESULTS Neutrophils, abs 4.4 1.3 - 7.4 K/cumm HISTORICAL RESULTS Blood specimen (specimen) 09/19/2012 2:39 PM CDT Sparkle Colindres MD LAB BLOOD ORDERABLES Fin al Result Performing Organization Address [facility] de Phone Number HISTORICAL RESULTS * (ABNORMAL) Blood cell count (CBC) (09/06/2012 2:38 PM POST ANEST[facility]IA CARE UN[facility] NURSE) WBC 8.0 4.5 - 10.6 K/cumm HISTORICAL RESULTS RBC 5.13 4.00 - 6.01 M/cumm HISTORICAL RESULTS Hgb 17.5 11.0 - 18.1 g/dl HISTORICAL RESULTS Hct 51.0 35.0 - 60.0 % HISTORICAL RESULTS MCV 99.4 80.0 - 100.0 fl HISTORICAL RESULTS MCH 34.1(H) 27.0 - 31.0 pg HISTORICAL RESULTS MCHC 34.3 33.0 - 37.0 g/dl HISTORICAL RESULTS Rdw 13.8 11.5 - 14.6 % HISTORICAL RESULTS Platelets 256 150 - 400 K/cumm HISTORICAL RESULTS MPV 7.9 7.4 - 10.4 fl HISTORICAL RESULTS Lymphocytes 24.7 20.0 - 50.0 % HISTORICAL RESULTS Monos 13.9(H) 1.0 - 13.0 % HISTORICAL RESULTS Neutrophils 61.4 30.0 - 70.0 % HISTORICAL RESULTS Lymphocytes, abs 2.0 0.9 - 5.3 K/cumm HISTORICAL RESULTS Monocytes, absolute 1.1 0.1 - 1.1 K/cumm HISTORICAL RESULTS Neutrophils, abs 4.9 1.3 - 7.4 K/cumm HISTORICAL RESULTS Blood specimen (specimen) 09/06/2012 2:38 PM [facility] NURSE Sparkle Colindres MD LAB BLOOD ORDERABLES Fin al Result Performing Organization Address [facility] Co de Phone Number HISTORICAL RESULTS * (ABNORMAL) Blood cell count (CBC) (08/30/2012 7:53 AM POST ANESTH[facility]IA CARE UNIT NURSE) WBC 7.0 4.5 - 10.6 K/cumm HISTORICAL RESULTS RBC 4.94 4.00 - 6.01 M/cumm HISTORICAL RESULTS Hgb 17.1 11.0 - 18.1 g/dl HISTORICAL RESULTS Hct 49.1 35.0 - 60.0 % HISTORICAL RESULTS MCV 99.3 80.0 - 100.0 fl HISTORICAL RESULTS MCH 34.6(H) 27.0 - 31.0 pg HISTORICAL RESULTS MCHC 34.8 33.0 - 37.0 g/dl HISTORICAL RESULTS Rdw 12.3 11.5 - 14.6 % HISTORICAL RESULTS Platelets 244 150 - 400 K/cumm HISTORICAL RESULTS MPV 8.0 7.4 - 10.4 fl HISTORICAL RESULTS Lymphocytes 32.4 20.0 - 50.0 % HISTORICAL RESULTS Monos 11.9 1.0 - 13.0 % HISTORICAL RESULTS Neutrophils 55.7 30.0 - 70.0 % HISTORICAL RESULTS Lymphocytes, abs 2.3 0.9 - 5.3 K/cumm HISTORICAL RESULTS Monocytes, absolute 0.8 0.1 - 1.1 K/cumm HISTORICAL RESULTS Neutrophils, abs 3.9 1.3 - 7.4 K/cumm HISTORICAL RESULTS Blood specimen (specimen) 08/30/2012 7:53 AM POST ANESTH[facility]IA CARE UN[facility] NURSE us Sparkle Colindres MD LAB BLOOD ORDERABLES Fin al Result HISTORICAL RESULTS * (ABNORMAL) Blood cell count (CBC) (08/23/2012 10:34 AM POST ANESTH[facility]IA CARE UNIT NURSE) WBC 5.9 4.5 - 10.6 K/cumm HISTORICAL RESULTS RBC 4.88 4.00 - 6.01 M/cumm HISTORICAL RESULTS Hgb 16.8 11.0 - 18.1 g/dl HISTORICAL RESULTS Hct 48.8 35.0 - 60.0 % HISTORICAL RESULTS MCV 99.9 80.0 - 100.0 fl HISTORICAL RESULTS MCH 34.4(H) 27.0 - 31.0 pg HISTORICAL RESULTS MCHC 34.4 33.0 - 37.0 g/dl HISTORICAL RESULTS Rdw 13.4 11.5 - 14.6 % HISTORICAL RESULTS Platelets 189 150 - 400 K/cumm HISTORICAL RESULTS MPV 8.1 7.4 - 10.4 fl HISTORICAL RESULTS Lymphocytes 30.0 20.0 - 50.0 % HISTORICAL RESULTS Monos 12.4 1.0 - 13.0 % HISTORICAL RESULTS Neutrophils 57.6 30.0 - 70.0 % HISTORICAL RESULTS Lymphocytes, abs 1.8 0.9 - 5.3 K/cumm HISTORICAL RESULTS Monocytes, absolute 0.7 0.1 - 1.1 K/cumm HISTORICAL RESULTS Neutrophils, abs 3.4 1.3 - 7.4 K/cumm HISTORICAL RESULTS Blood specimen (specimen) 08/23/2012 10:34 AM [facility]ARE UN[facility] NURSE Sparkle Colindres MD LAB BLOOD ORDERABLES Fin al Result HISTORICAL RESULTS * (ABNORMAL) Blood cell count (CBC) (08/16/2012 9:53 AM [facility] ANEST[facility]IA CARE UN[facility] NURSE) WBC 5.3 4.5 - 10.6 K/cumm HISTORICAL RESULTS RBC 5.09 4.00 - 6.01 M/cumm HISTORICAL RESULTS Hgb 17.4 11.0 - 18.1 g/dl HISTORICAL RESULTS Hct 51.0 35.0 - 60.0 % HISTORICAL RESULTS MCV 100.1(H) 80.0 - 100.0 fl HISTORICAL RESULTS MCH 34.2(H) 27.0 - 31.0 pg HISTORICAL RESULTS MCHC 34.1 33.0 - 37.0 g/dl HISTORICAL RESULTS Rdw 12.6 11.5 - 14.6 % HISTORICAL RESULTS Platelets 206 150 - 400 K/cumm HISTORICAL RESULTS MPV 8.1 7.4 - 10.4 fl HISTORICAL RESULTS Lymphocytes 23.9 20.0 - 50.0 % HISTORICAL RESULTS Monos 10.1 1.0 - 13.0 % HISTORICAL RESULTS Neutrophils 66.0 30.0 - 70.0 % HISTORICAL RESULTS Lymphocytes, abs 1.3 0.9 - 5.3 K/cumm HISTORICAL RESULTS Monocytes, absolute 0.5 0.1 - 1.1 K/cumm HISTORICAL RESULTS Neutrophils, abs 3.5 1.3 - 7.4 K/cumm HISTORICAL RESULTS Blood specimen (specimen) 08/16/2012 9:53 AM [facility]ARE [facility] NURSE Sparkle Colindres MD LAB BLOOD ORDERABLES Fin al Result Performing Organization Address [place]/[facility] de Phone Number HISTORICAL RESULTS * (ABNORMAL) Blood cell count (CBC) (08/09/2012 1:59 PM [facility]EST[facility]IA [facility]ARE UN[facility] NURSE) WBC 6.1 4.5 - 10.6 K/cumm HISTORICAL RESULTS RBC 5.17 4.00 - 6.01 M/cumm HISTORICAL RESULTS Hgb 17.5 11.0 - 18.1 g/dl HISTORICAL RESULTS Hct 52.1 35.0 - 60.0 % HISTORICAL RESULTS MCV 100.8(H) 80.0 - 100.0 fl HISTORICAL RESULTS MCH 33.8(H) 27.0 - 31.0 pg HISTORICAL RESULTS MCHC 33.6 33.0 - 37.0 g/dl HISTORICAL RESULTS Rdw 13.4 11.5 - 14.6 % HISTORICAL RESULTS Platelets 213 150 - 400 K/cumm HISTORICAL RESULTS MPV 8.1 7.4 - 10.4 fl HISTORICAL RESULTS Lymphocytes 23.1 20.0 - 50.0 % HISTORICAL RESULTS Monos 10.8 1.0 - 13.0 % HISTORICAL RESULTS Neutrophils 66.1 30.0 - 70.0 % HISTORICAL RESULTS Lymphocytes, abs 1.4 0.9 - 5.3 K/cumm HISTORICAL RESULTS Monocytes, absolute 0.7 0.1 - 1.1 K/cumm HISTORICAL RESULTS Neutrophils, abs 4.0 1.3 - 7.4 K/cumm HISTORICAL RESULTS Blood specimen (specimen) 08/09/2012 1:59 PM [facility] NURSE Sparkle Colindres MD LAB BLOOD ORDERABLES Ziggy dunham Result Performing Organization Address [facility] de Phone Number HISTORICAL RESULTS * Blood cell count (CBC) (08/02/2012 3:00 PM [facility] ANEST[facility]IA CARE UN[facility] NURSE) WBC 7.0 4.0 - 10.5 K/cumm HISTORICAL RESULTS RBC 5.34 4.60 - 6.20 M/cumm HISTORICAL RESULTS Hgb 17.3 14.0 - 18.0 g/dl HISTORICAL RESULTS Hct 48.1 40.0 - 54.0 % HISTORICAL RESULTS MCV 90.1 77.0 - 97.0 fl HISTORICAL RESULTS MCH 32.4 23.0 - 34.0 pg HISTORICAL RESULTS MCHC 36.0 32.0 - 36.0 g/dl HISTORICAL RESULTS Rdw 13.1 11.5 - 14.5 % HISTORICAL RESULTS Platelets 216 150 - 451 K/cumm HISTORICAL RESULTS MPV 9.8 7.4 - 10.4 fl HISTORICAL RESULTS Blood specimen (specimen) 08/02/2012 3:00 PM [facility]ARE [facility] NURSE Sparkle Colindres MD LAB BLOOD ORDERABLES Fin al Result Performing Organization Address [facility] de Phone Number HISTORICAL RESULTS * (ABNORMAL) Blood WBC cell morphologic exam, auto (08/02/2012 3:00 PM [facility] NURSE) Lymphocytes 23.2(L) 25.0 - 33.0 % HISTORICAL RESULTS Monos 8.6 1.0 - 13.0 % HISTORICAL RESULTS Neutrophils 62.5 54.0 - 69.0 % HISTORICAL RESULTS Eosinophils 3.3 0.0 - 10.0 % HISTORICAL RESULTS Basophils 2.0(H) 0.0 - 1.0 % HISTORICAL RESULTS Young granulocytes, % 0.4 % HISTORICAL RESULTS Lymphocytes, abs 1.6 K/cumm HIS TORICAL RESULTS Monocytes, absolute 0.6 K/cumm HISTORICAL RESULTS Neutrophils, abs 4.4 K/cumm HIS TORICAL RESULTS Eosinophils, abs 0.2 cells/cumm HI STORICAL RESULTS Basophils, abs 0.1 K/cumm HISTO RICAL RESULTS Young granulocyte 0 K/cumm HISTORICAL RESULTS Blood specimen (specimen) 08/02/2012 3:00 PM [facility] NURSE Sparkle Colindres MD LAB BLOOD ORDERABLES Fin al Result Performing Organization Address [facility] de Phone Number HISTORICAL RESULTS * (ABNORMAL) Serum comprehensive metabolic panel (08/02/2012 3:00 PM [facility] NURSE) BUN 15.0 6.0 - 23.0 mg/dl HISTORICAL RESULTS Sodium 136 134 - 143 mmol/L HISTORICAL RESULTS Potassium, sr 3.5 3.4 - 5.0 mmol/L HISTORICAL RESULTS Comment:HEMOLYSIS PRESENT PO TASSIUM MAY BE FALSELY ELEVATED Chloride 99 99 - 108 mmol/L HISTORICAL RESULTS CO2 26 23 - 32 mmol/L HISTORICAL RESULTS Glucose, fasting 255(H) 70 - 110 mg/dl HISTORICAL RESULTS Creatinine 1.05 0.60 - 1.30 mg/dl HISTORICAL RESULTS Comment: eGFR: >70 ml/min/1.73sq.m if non -Citizen Of The [place]. eGFR: >70 ml/min/1.73sq.m if -Citizen Of The [place]. AVE GFR for 60-69 yr. age group: ??85 ml/min/173sq.m Calculated using MDRD Equation BUN/creat ratio 14 10 - 20 HIST ORICAL RESULTS A. gap 14 7 - 14 mmol/L HISTORICAL RESULTS Protein, sr 7.0 6.4 - 8.0 g/dl HISTORICAL RESULTS Alb 3.8 3.3 - 4.5 g/dl HISTORICAL RESULTS Alb/glob ratio 1.2 1.1 - 1.8 HISTO RICAL RESULTS Calcium 8.7 8.6 - 9.8 mg/dl HISTORICAL RESULTS Bilirubin 0.4 0.0 - 1.1 mg/dl HISTORICAL RESULTS Alk phos 104 44 - 125 Units/L HISTORICAL RESULTS AST 23 4 - 32 Units/L HISTORICAL RESULTS Comment:HEMOLYSIS PRESENT T(SGOT) MAY BE FALSELY ELEVATED ALT 52 16 - 66 Units/L HISTORICAL RESULTS Serum 08/02/2012 3:00 PM [facility] NURSE Sparkle Colindres MD LAB BLOOD ORDERABLES Fin al Result HISTORICAL RESULTS * Referred test, miscellaneous (08/02/2012 9:00 AM [facility] NURSE) Referral specimen, test result SEEFN HISTORICAL RESULTS Miscellaneous 08/02/2012 9:0 0 AM [facility] NURSE Narrative HISTORICAL RESULTS - 08/06/2012 9:11 AM [facility] NURSE GOKEY JAK2B ? HI ? Expected Test ? Result ??LO ??Units ??Values JAK2 V617F Mutation Detection, B ? SEE FN ?Peripheral blood, JAK2 V617F mutation analysis: ?Negative for JAK2 V617F. ?Signing Pathologist: oFrd Jack M.D. ?Laboratory developed test. ??Method: ?SEE FN ?JAK2 V617F analysis: Genomic DNA was extracted and a ?quantitative, allele-specific polymerase chain reaction ?(PCR) assay used to evaluate for the point mutation causing ?JAK2 V617F (see [facility] Interpretive ?Handbook for method details). ??Reviewed By: ?Ford Jack M.D. ??HPGDE, DNA Extraction ?Performed ??Interpretation and Report ?Performed us Sparkle Colindres MD LAB BLOOD ORDERABLES Fin al Result HISTORICAL RESULTS documented in this encounter Visit Diagnoses Diagnosis Polycythemia vera (HCC) documented in this encounter Care Teams Director Furniture Relationship Specialty Start Date End Date Wesley Em MD PCP - General 10/12/12 08/31/16 Wesley Em MD PCP - General 03/11/08 10/11/12 documented as of this encounter
--- OUTSIDE RECORDS SUMMARY | 2024-06-18 18:18 | XMS_ITS | Encounter Summary ---
Author Organization [facility] Healthcare Address [address] [place] [address] Care Team Providers Care Contracts Administrator Name Role Phone Gene Em MD Primary Care Provider [phone] Encounter Details Date Type Department Care Team (Late st Contact Info) Description 08/17/2012 8:47 AM HEATING UNIT INSTALLER - 08/17/2012 11:59 PM [facility] Hospital Encounter [facility] CLINCONV Gene Em MD [address] [place] [id number] Chest pain; Other specified circulatory system disorders Social History Tobacco Use Types Packs/Day Years Used Date Smoking Tobacco: Former Alcohol Use Standard Drinks/Week Comments No 0 (1 standard drink = 0.6 oz pur e alcohol) Sex and Gender Information Value Date Recorded Sex Assigned at Not on file Legal Sex Male 6:00 PM HEATING UNIT INSTALLER Gender Identity Not on file Sexual [...] MPI SPECT (REST AND/OR STRESS) MULTIPLE STUDIES Routine 08/17/2012 1:43 PM HEATING UNIT INSTALLER STRESS ECHO EXERCISE W DOPPLER/CF WO CONTRAST Routine 08/17/2012 9:38 AM HEATING UNIT INSTALLER STRESS ECHOCARDIOGRAPHY Routine 08/17/19 13 12:00 AM HEATING UNIT INSTALLER documented in this encounter Results * NM MPI Spect (Rest And Stress) Multiple Studies (08/17/2012 1:43 PM HEATING UNIT INSTALLER) Anatomical Region Laterality Modality Body N/A Nuclear Medicine 08/17/2012 1:43 PM HEATING UNIT INSTALLER Narrative 08/17/2012 3:41 PM HEATING UNIT INSTALLER DATE OF EXAM: ??Aug 17 2012 ??1:43PM Acc#: ??[id number] ??ENM 0067 - NM Myocard Perf Rest/Stress Phar ?? DIAGNOSIS: ??CHEST PAIN NOS CLINICAL HISTORY: ?? CHEST PAIN ?? RESULT: \ MYOCARDIAL PERFUSION REST AND PHARMACOLOGIC STRESS HISTORY: ??Left-sided chest pain, anterior chest pressure, old myocardial infarction. REST DOSE: ??11.1 millicuries technetium 99m Sestamibi. STRESS DOSE: ??35.4 millicuries of technetium 99m Sestamibi. MAXIMUM PREDICTED HEART RATE: ??155 beats per minute. HEART RATE ACHIEVED: ??113 beats per minute. PERCENTAGE OF MAXIMUM PREDICTED: ??73% LEXISCAN DOSE: ??0.4 milligrams. Rest and gated Lexiscan stress myocardial SPECT perfusion exam was performed. ?? Partial ??reversibility of the inferior wall is noted. Fixed defect involving the inferobasal segment appears to be present. Partial reversibility of the septal wall is noted. ??Associated mild paradoxical motion of the septal wall and hypokinesis is ??evident. ?? Ejection fraction is 48%. ?? IMPRESSION: ?\ REVERSIBLE ISCHEMIA OF THE SEPTAL WALL. ??PARTIAL REVERSIBILITY OF THE INFERIOR WALL. ??ASSOCIATED WALL MOTION ABNORMALITY. Discussed with Dr. Em at 1425 on 08/17/12. 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 ??READ ON: ??Aug 17 2012 ??2:13P ORDERING DR: GENE EM M.D. THIS DOCUMENT HAS BEEN ELECTRONICALLY SIGNED BY: ??AUSTIN TURNER M.D. ??ON: ??Aug 17 2012 ??3:41P Procedure Note Provider, Historical, - 10/22/2016 DATE OF EXAM: Aug 17 2012 1:43PM Acc#: [id number] [facility] 0067 - NM Myocard Perf Rest/Stress Phar DIAGNOSIS: CHEST PAIN NOS CLINICAL HISTORY: CHEST PAIN RESULT: \ MYOCARDIAL PERFUSION REST AND PHARMACOLOGIC STRESS HISTORY: Left-sided chest pain, anterior chest pressure, old myocardial infarction. REST DOSE: 11.1 millicuries technetium 99m Sestamibi. STRESS DOSE: 35.4 millicuries of technetium 99m Sestamibi. MAXIMUM PREDICTED HEART RATE: 155 beats per minute. HEART RATE ACHIEVED: 113 beats per minute. PERCENTAGE OF MAXIMUM PREDICTED: 73% LEXISCAN DOSE: 0.4 milligrams. Rest and gated Lexiscan stress myocardial SPECT perfusion exam was performed. Partial reversibility of the inferior wall is noted. Fixed defect involving the inferobasal segment appears to be present. Partial reversibility of the septal wall is noted. Associated mild paradoxical motion of the septal wall and hypokinesis is evident. Ejection fraction is 48%. IMPRESSION: \ REVERSIBLE ISCHEMIA OF THE SEPTAL WALL. PARTIAL REVERSIBILITY OF THE INFERIOR WALL. ASSOCIATED WALL MOTION ABNORMALITY. Discussed with Dr. Em at 1425 on 08/17/12. FARM MACHINERY ASSEMBLER: DM2 TRANSCRIBE DATE/TIME: Aug 17 2012 3:29P RADIOLOGIST: AUSTIN TURNER M.D. READ ON: Aug 17 2012 2:13P ORDERING DR: GENE EM M.D. THIS DOCUMENT HAS BEEN ELECTRONICALLY SIGNED BY: AUSTIN TURNER M.D. ON: Aug 17 2012 3:41P Historical Provider MD ALISA SARMIENTO PROCEDURES Final R esult * Stress Echo Exercise W Doppler/CF WO Contrast (08/17/2012 9:38 AM HEATING UNIT INSTALLER) Anatomical Region Laterality Modality Echocardiography 08/17/2012 9:38 AM HEATING UNIT INSTALLER us Historical Provider CV ECHO PROCEDURES Final Result * STRESS ECHOCARDIOGRAPHY (08/17/2012 12:00 AM HEATING UNIT INSTALLER) Anatomical Region Laterality Modality N/A Nuclear Medicine 08/17/2012 Narrative 08/17/2012 1:02 PM HEATING UNIT INSTALLER ?CARDIOLOGY GRAPHICS Patient: ?? IVLLA ALSTON Account: ?? [id number] ? : ? 1945 Room No: ?Age: ? 66 Attending: Gene Em M.D. ?Patient Type: ?ANC Dictating: Simon Drummond M.D. ? Admit Date: ?08/17/2012 ?PHARMACOLOGICAL STRESS TEST Date of Exam: ??08/17/2012 Tech ID#: ??[id number] Indication for test: ??Chest pain Lexiscan dose: ??0.4 milligrams Medications: ??ASA, Clonidine, Finasteride, Flomax, Flonase, Metformin, HCTZ, Lopid, Omeprazole, Pravachol, Quinapril. Pre-test ECG: ?Normal ? Abnormal __X__ ST segment abnormality: ??No_X_ ?? Yes___ Symptoms: ??No_X_ ?? Yes___ Arrhythmia: ??No___ ?? Yes_X_ INTERPRETATION: ?? The patient is a 66 year old male who does not have known history of coronary artery disease. ??He does have diabetes, dyslipidemia and hypertension as well as a risk factor of age. ??Stress testing is recommended for further risk stratification. ??Stress echocardiogram was originally ordered but due to poor imaging quality as well as patient's arthritic knees he was switched to a Lexiscan perfusion study. RESTING EKG: ??Normal sinus rhythm with frequent premature ventricular contractions; possible inferior infarction, age undetermined; poor R wave progression; non specific ST and T wave abnormalities; left axis deviation. PROCEDURE: ??After obtaining baseline 12 lead EKG and blood pressure assessment (152/93 mmHg), the patient received 0.4 milligrams of Lexiscan IV push followed by his stress dose of Technesium sestamibi. ??He was then monitored for several minutes in recovery obtaining serial 12 lead EKGs and blood pressure assessments. ??He tolerated the procedure well without anginal symptoms. ??Peak heart rate of 110 beats per minute which is 70% of maximum predicted heart rate for age. ??Peak blood pressure was 154/75. ??Normal blood pressure response to exercise Lexiscan infusion. ??No diagnostic ST or T wave changes to indicate ischemia. ??The patient continued to have occasional ventricular ectopy during the Lexiscan infusion and in recovery. IMPRESSION: ?? 1. ?No ST or T wave changes with Lexiscan infusion to indicate ischemia. ?? 2. ?Frequent ventricular ectopy in the form of premature ventricular ? contractions prior to, during and after Lexiscan infusion. ?? 3. ?Myocardial perfusion images are pending at this time; please ? correlate. ?? 4. ?*-*-* ?? 5. ?? 6. ?? 1. Dictated by: Simon Drummond M.D. EMILI/eliceo Job #: ??[id number] DD: ??08/17/2012 12:22 TD: ??08/17/2012 13:02 Procedure Note Provider, MD Wilian - 11/01/2016 CARDIOLOGY GRAPHICS Patient: VILLA ALSTON Account: [id number] :1945 Room No: Age: 66 Attending: Gene Em M.D. Patient Type: ANC Dictating: Simon Drummond M.D. Admit Date:08/17/2012 PHARMACOLOGICAL STRESS TEST Date of Exam: 08/17/2012 Tech ID#: [id number] Indication for test: Chest pain Lexiscan dose: 0.4 milligrams Medications: ASA, Clonidine, Finasteride, Flomax, Flonase, Metformin,HCTZ, Lopid, Omeprazole, Pravachol, Quinapril. Pre-test ECG: Normal Abnormal __X__ ST segment abnormality: No_X_ Yes___ Symptoms: No_X_ Yes___ Arrhythmia: No___ Yes_X_ INTERPRETATION: The patient is a 66 year old male who does not haveknown history of coronary artery disease. He does have diabetes, dyslipidemiaand hypertension as well as a risk factor of age. Stress testing isrecommended for further risk stratification. Stress echocardiogram was originallyordered but due to poor imaging quality as well as patient's arthritic knees hewas switched to a Lexiscan perfusion study. RESTING EKG: Normal sinus rhythm with frequent premature ventricular contractions; possible inferior infarction, age undetermined; poor Rwave progression; non specific ST and T wave abnormalities; left axisdeviation. PROCEDURE: After obtaining baseline 12 lead EKG and blood pressureassessment (152/93 mmHg), the patient received 0.4 milligrams of Lexiscan IV pushfollowed by his stress dose of Technesium sestamibi. He was then monitored forseveral minutes in recovery obtaining serial 12 lead EKGs and blood pressure assessments. He tolerated the procedure well without anginal symptoms.Peak heart rate of 110 beats per minute which is 70% of maximum predicted heartrate for age. Peak blood pressure was 154/75. Normal blood pressure responseto exercise Lexiscan infusion. No diagnostic ST or T wave changes toindicate ischemia. The patient continued to have occasional ventricular ectopyduring the Lexiscan infusion and in recovery. IMPRESSION: 1. No ST or T wave changes with Lexiscan infusion to indicateischemia. 2. Frequent ventricular ectopy in the form of prematureventricular contractions prior to, during and after Lexiscan infusion. 3. Myocardial perfusion images are pending at this time; please correlate. 4. *-*-* 5. 6. 1. Dictated by: Ras Arrington/eliceo TD: 08/17/2012 13:02 us Historical Provider MD CUELLAR NM PROCEDURES Final R esult documented in this encounter Visit Diagnoses Diagnosis Chest pain Unspecified chest pain Other specified circulatory system disorders documented in this encounter Care Teams Contracts Administrator Relationship Specialty Start Date End Date Gene Em MD PCP - General 03/11/08 10/11/12 documented as of this encounter
--- OUTSIDE RECORDS SUMMARY | 2024-06-18 18:18 | XMS_ITS | Encounter Summary ---
Author Organization [facility] Healthcare Address [address] [place] [address] Care Team Providers Care Machine Stitcher Name Role Phone Wesley Em MD Primary Care Provider [phone] Encounter Details Date Type Department Care Team (Latest Contact Info) Description 09/03/2012 11:25 AM FOOD PRESERVATION SCIENTIST - 09/03/2012 11:59 PM FOOD PRESERVATION SCIENTIST Hospital [place] [address] [place] [address] Pre-operative cardiovascular examination; Abnormal electrocardiogram; Other chest pain Social History Tobacco Use Types Packs/Day Years Used Date Smoking Tobacco: Former Alcohol Use Standard Drinks/Week Comments No 0 (1 standard drink = 0.6 oz pur e alcohol) Sex and Gender Information Value Date Recorded Sex Assigned at Not on file Legal Sex Male 6:00 PM FOOD PRESERVATION SCIENTIST Gender Identity Not on file Sexual [...] Diagnosis Comments SERUM BASIC METABOLIC PANEL Routine 09/03/2012 11:35 AM FOOD PRESERVATION SCIENTIST PLASMA PROTHROMBIN TIME (PT) Routine 09/03/2012 11:35 AM FOOD PRESERVATION SCIENTIST BLOOD WBC CELL MORPHOLOGIC EXAM, AUTO Routine 09/03/2012 11:35 AM FOOD PRESERVATION SCIENTIST BLOOD CELL COUNT (CBC) Routine 09/03/2012 11:35 AM FOOD PRESERVATION SCIENTIST DISCHARGE LABORATORY CUMULATIVE REPORT Routine 09/03/2012 12:00 AM FOOD PRESERVATION SCIENTIST documented in this encounter Results * Plasma prothrombin time (PT) (09/03/2012 11:35 AM FOOD PRESERVATION SCIENTIST) [facility] Prothrombin time (PT) 13.8 11.4 - 14.0 seconds HISTORICAL RESULTS INR 1.12 HISTORICAL RESULTS Comment: RECOMMENDED RANGES FOR PROTIME INR: NOTE: THE INR HAS BEEN VALIDATED ONLY FOR PATIENTS ON STABLE ORAL ?ANTICOAGULANT THERAPY. ?2.0 - 3.0 ??PROPHYLAXIS OF VENOUS THROMBOSIS (HIGH RISK SURGERY) ?2.0 - 3.0 ??TREATMENT OF VENOUS THROMBOSIS ?2.0 - 3.0 ??TREATMENT OF PULMONARY EMBOLISM ?2.0 - 3.0 ??PREVENTION OF SYSTEMIC EMBOLISM ? TISSUE HEART VALVES ? AMI (TO PREVENT SYSTEMIC EMBOLISM)* ? VALVULAR HEART DISEASE ? ATRIAL FIBRILLATION ?2.5 - 3.5 ??MECHANICAL PROSTHETIC VALVES (HIGH RISK) ?2.0 - 3.0 ??BILEAFLET MECHANICAL VALVE IN AORTIC POSITION *If oral anticoagulant therapy is elected to prevent recurrent myocardial infarction, an INR of 2.5 to 3.5 is recommended, consistent with Food and Drug Administration recommendations. Plasma 09/03/2012 11:3 5 AM FOOD PRESERVATION SCIENTIST Garth Millan MD LAB BLOOD ORDERABLES Final Resul t Performing Organization Address [facility] de Phone Number HISTORICAL RESULTS * (ABNORMAL) Serum basic metabolic panel (09/03/2012 11:35 AM FOOD PRESERVATION SCIENTIST) BUN 18.0 6.0 - 23.0 mg/dl HISTORICAL RESULTS Comment: BUN ? CORRECTED FROM ? 18.0 ON 09/03/12 AT 1425 BY [id number] FAXED TO [id number] 09/03/12 14:25 [id number] Sodium 136 134 - 143 mmol/L HISTORICAL RESULTS Potassium, sr 4.0 3.4 - 5.0 mmol/L HISTORICAL RESULTS Chloride 97(L) 99 - 108 mmol/L HISTORICAL RESULTS CO2 32 23 - 32 mmol/L HISTORICAL RESULTS Glucose, fasting 344(H) 70 - 110 mg/dl HISTORICAL RESULTS Creatinine 1.04 0.60 - 1.30 mg/dl HISTORICAL RESULTS Comment: eGFR: >70 ml/min/1.73sq.m if non -Prydeinig. eGFR: >70 ml/min/1.73sq.m if -Prydeinig. AVE GFR for 60-69 yr. age group: ??85 ml/min/173sq.m Calculated using MDRD Equation BUN/creat ratio 17 10 - 20 HIST ORICAL RESULTS A. gap 11 7 - 14 mmol/L HISTORICAL RESULTS Osmo, calc 287 280 - 301 mOsm/kg HISTORICAL RESULTS Calcium 9.1 8.6 - 9.8 mg/dl HISTORICAL RESULTS Serum 09/03/2012 11:3 5 AM FOOD PRESERVATION SCIENTIST us Garth Millan MD LAB BLOOD ORDERABLES Final Resul t Performing Organization Address [facility] Co de Phone Number HISTORICAL RESULTS * Blood cell count (CBC) (09/03/2012 11:35 AM FOOD PRESERVATION SCIENTIST) WBC 5.2 4.0 - 10.5 K/cumm HISTORICAL RESULTS RBC 4.75 4.60 - 6.20 M/cumm HISTORICAL RESULTS Hgb 15.6 14.0 - 18.0 g/dl HISTORICAL RESULTS Hct 44.6 40.0 - 54.0 % HISTORICAL RESULTS MCV 93.9 77.0 - 97.0 fl HISTORICAL RESULTS MCH 32.8 23.0 - 34.0 pg HISTORICAL RESULTS MCHC 35.0 32.0 - 36.0 g/dl HISTORICAL RESULTS Rdw 13.4 11.5 - 14.5 % HISTORICAL RESULTS Platelets 221 150 - 451 K/cumm HISTORICAL RESULTS MPV 10.4 7.4 - 10.4 fl HISTORICAL RESULTS Blood specimen (specimen) 09/03/2012 11:35 AM FOOD PRESERVATION SCIENTIST Garth Millan MD LAB BLOOD ORDERABLES Final Resul t HISTORICAL RESULTS * (ABNORMAL) Blood WBC cell morphologic exam, auto (09/03/2012 11:35 AM FOOD PRESERVATION SCIENTIST) Pathologist [facility] Lymphocytes 29.8 25.0 - 33.0 % HISTORICAL RESULTS Monos 9.7 1.0 - 13.0 % HISTORICAL RESULTS Neutrophils 52.9(L) 54.0 - 69.0 % HISTORICAL RESULTS Eosinophils 4.3 0.0 - 10.0 % HISTORICAL RESULTS Basophils 2.9(H) 0.0 - 1.0 % HISTORICAL RESULTS Lymphocytes, abs 1.5 1.2 - 3.4 K/cumm HISTORICAL RESULTS Monocytes, absolute 0.5(L) 1.1 - 1.9 K/cumm HISTORICAL RESULTS Neutrophils, abs 2.7 1.4 - 6.5 K/cumm HISTORICAL RESULTS Eosinophils, abs 0.2 0.0 - 0.7 cells/cum m HISTORICAL RESULTS Basophils, abs 0.2 0.0 - 0.2 K/cumm HISTORICAL RESULTS Immature granulocyte, abs 0 0 - 2 K/cumm HISTORICAL RESULTS Immature granulocytes 0.4 % HISTORICAL RESULTS Blood specimen (specimen) 09/03/2012 11:35 AM FOOD PRESERVATION SCIENTIST us Garth Millan MD LAB BLOOD ORDERABLES Final Resul t HISTORICAL RESULTS * Discharge Laboratory Cumulative Report (09/03/2012 12:00 AM FOOD PRESERVATION SCIENTIST) 09/03/2012 Narrative HISTORICAL RESULTS - 09/05/2012 12:23 AM FOOD PRESERVATION SCIENTIST Patient No: [id number] ? [facility] Patient Name: VILLA ALSTON ?[facility] Age: 66 YRS ?: 1945 ?Sex:M ?[address] )[phone] ?? Adm Dt: 09/03/2012 ?[place], [place] ??[id number] Created: 09/05/2012 ??0023 ?? Pt. Type: R ? Discharge Dt: 09/03/2012 ? Pathologists: Brooklyn Ortiz MD Admit Attend Dr: GARTH MILLAN MD ? BLOOD CELL COUNTS ?Collection Date: ?09/03/12 ?Collection Time: ?1135 ? Ref Range: ?? Units: [4.00-10.50] /CMM ? WBC X 10^3 ?5.16 [4.60-6.20] ??/CMM ? RBC X 10^6 ?4.75 [14.0-18.0] ??G/DL ? HGB ? 15.6 [40.0-54.0] ??% ?HCT ? 44.6 [77.0-97.0] ??FL ? MCV ? 93.9 [23.0-34.0] ??PG ? MCH ? 32.8 [32.0-36.0] ??% ?MCHC ?35.0 [11.5-14.5] ??% ?RDW ? 13.4 [150-451] ?? /CMM ? PLT X 10^3 ? 221 ?BLOOD CELL DIFFERENTIAL ?Collection Date: ?03/04/13 ?Collection Time: ?1135 ? Ref Range: ?? Units: [54.0-69.0] ??% ?NEUTROPHILS ? 52.9 L [25.0-33.0] ??% ?LYMPHOCYTES ? 29.8 [1.0-13.0] ??% ?MONOCYTES ?9.7 [0.0-10.0] ??% ?EOSINOPHILS ?4.3 [0.0-1.0] ?? % ?BASOPHILS ?2.9 H ? /CMM ? A LYMPHOCYTE ? 1.5 ? % ?IMM GRAN % ? 0.4 [0.00-2.00] ??/CMM ? A IMM GRAN ?0.20 [1.1-1.9] ?? /CMM ? A MONOCYTE ? 0.5 L [1.4-6.5] ?? /CMM ? A NEUTROPHIL ? 2.7 [0.0-0.7] ?? /CMM ? A EOSINOPHIL ? 0.2 [0.0-0.2] ?? /CMM ? A BASOPHIL ? 0.2 Footnotes and Symbols: L = Low, H = High ?? CONTINUED ?Page: ?? 1 Patient No: [id number] ? [facility] Patient Name: VILLA ALSTON ?[facility] Age: 66 YRS ?: 1945 ?Sex:M ?[address] )[phone] ?? Adm Dt: 09/03/2012 ?[place] ??[id number] Created: 09/05/2012 ??0023 ?? Pt. Type: R ? Discharge Dt: 09/03/2012 ? Pathologists: Brooklyn Ortiz MD Admit Attend Dr: GARTH MILLAN MD ? GENERAL CHEMISTRY ?Collection Date: ?09/03/12 ?Collection Time: ?1135 ? Ref Range: ?? Units: [134-143] ?? MMOL/L ? SODIUM ? 136 [3.4-5.0] ?? MMOL/L ? POTASSIUM ?4.0 [99.0-108.0] MMOL/L ? CHLORIDE ?97.0 L [23.0-32.0] ??MMOL/L ? TOTAL CO2 ? 32.0 ?? [7-14] ?MMOL/L ? ANION GAP ? 11 ??[70-110] ?? MG/DL ?GLUCOSE FASTING ?344 H [280-301] ?? MOSM/K ? CALCULATED OSMO ?287 [8.6-9.8] ?? MG/DL ?CALCIUM ?9.1 [6.0-23.0] ??MG/DL ?BUN ? 18.0 f ?09/03/12 1135 FAXED TO [id number] 09/03/12 14:25 [id number] FOOTNOTE ADDED ON ?? 09/03/12 ?? AT 1425 BY [id number] ??[10-20] ? B/C RATIO ? 17 [0.60-1.30] ??MG/DL ?CREATININE ?1.04 f ?09/03/12 1135 eGFR: >70 ml/min/1.73sq.m if non -Prydeinig. eGFR: >70 ml/min/1.73sq.m if -Prydeinig. AVE GFR for 60-69 yr. age group: ??85 ml/min/173sq.m Calculated using MDRD Equation FOOTNOTE ADDED ON ?? 09/03/12 ?? AT 1245 BY [id number] Footnotes and Symbols: L = Low, H = High, f = Footnote ?? CONTINUED ?Page: ?? 2 Patient No: [id number] ? [facility] Patient Name: VILLA ALSTON ?[facility] Age: 66 YRS ?: 1945 ?Sex:M ?[address] )[phone] ?? Adm Dt: 09/03/2012 ?[place], [place] ??[address] Created: 09/05/2012 ??0023 ?? Pt. Type: R ? Discharge Dt: 09/03/2012 ? Pathologists: Brooklyn Ortiz MD Admit Dr. Vega Dr: GARTH MILLAN MD ?COAGULATION ? Units: ?? PROTIME ?INR ? Low: ??[11.4-14.0] ? Ref Range: ? SECS ? 09/03/12 1135 ?13.8 ? 1.12 f Footnotes and Symbols: f = Footnote INR (01/20/00 -- Current) RECOMMENDED RANGES FOR PROTIME INR: NOTE: THE INR HAS BEEN VALIDATED ONLY FOR PATIENTS ON STABLE ORAL ?ANTICOAGULANT THERAPY. ?2.0 - 3.0 ??PROPHYLAXIS OF VENOUS THROMBOSIS (HIGH RISK SURGERY) ?2.0 - 3.0 ??TREATMENT OF VENOUS THROMBOSIS ?2.0 - 3.0 ??TREATMENT OF PULMONARY EMBOLISM ?2.0 - 3.0 ??PREVENTION OF SYSTEMIC EMBOLISM ? TISSUE HEART VALVES ? AMI (TO PREVENT SYSTEMIC EMBOLISM)* ? VALVULAR HEART DISEASE ? ATRIAL FIBRILLATION ?2.5 - 3.5 ??MECHANICAL PROSTHETIC VALVES (HIGH RISK) ?2.0 - 3.0 ??BILEAFLET MECHANICAL VALVE IN AORTIC POSITION *If oral anticoagulant therapy is elected to prevent recurrent myocardial infarction, an INR of 2.5 to 3.5 is recommended, consistent with Food and Drug Administration recommendations. ?? END OF CHART ? Page: ?? 3 us Historical Provider LAB BLOOD ORDERABLES Iwona l Result HISTORICAL RESULTS documented in this encounter Visit Diagnoses Diagnosis Pre-operative cardiovascular examination Abnormal electrocardiogram Nonspecific abnormal electrocardiogram (ECG) (EKG) Other chest pain documented in this encounter Care Teams Machine Stitcher Relationship Specialty Start Date End Date Wesley Em MD PCP - General 03/11/08 10/11/12 documented as of this encounter
--- OUTSIDE RECORDS SUMMARY | 2024-06-18 18:18 | XMS_ITS | Encounter Summary ---
Author Organization [facility] Address [address] [place] [address] Care Team Providers Care Cosmetic Assembler Name Role Phone Wesley Em MD Primary Care Provider [phone] Encounter Details Date Type Department Care Team (Late st Contact Info) Description 12/11/2013 9:54 AM CDT - 05/05/2014 11:59 PM EXECUTIVE SOUS CHEF Hospital Encounter [facility] Colindres, Sparkle Steele MD [address] [place] [id number] Polycythemia vera (HCC) Social History Tobacco Use Types Packs/Day Years Used Date Smoking Tobacco: Former Alcohol Use Standard Drinks/Week Comments No 0 (1 standard drink = 0.6 oz pur e alcohol) Sex and Gender Information Value Date Recorded Sex Assigned at Not on file Legal Sex Male 6:00 PM EXECUTIVE SOUS CHEF Gender Identity Not on file Sexual Orientation [...] Diagnosis Comments SERUM BASIC METABOLIC PANEL Routine 05/05/2014 10:25 AM EXECUTIVE SOUS CHEF BLOOD CELL COUNT (CBC) Routine 05/05/2014 8:22 AM EXECUTIVE SOUS CHEF DISCHARGE LABORATORY CUMULATIVE REPORT Routine 05/05/2014 12:00 AM EXECUTIVE SOUS CHEF SERUM BASIC METABOLIC PANEL Routine 03/10/2014 10:50 AM CDT BLOOD CELL COUNT (CBC) Routine 03/10/2014 8:09 AM CDT SERUM BASIC METABOLIC PANEL Routine 02/10/2014 12:00 PM CDT BLOOD CELL COUNT (CBC) Routine 02/10/2014 7:52 AM CDT BLOOD CELL COUNT (CBC) Routine 01/07/2014 11:50 AM CDT SERUM BASIC METABOLIC PANEL Routine 01/07/2014 11:15 AM CDT BLOOD CELL COUNT (CBC) Routine 12/11/2013 10:20 AM CDT documented in this encounter Results * Serum basic metabolic panel (05/05/2014 10:25 AM EXECUTIVE SOUS CHEF) BUN 22.0 6.0 - 23.0 mg/dl HISTORICAL RESULTS Sodium 138 134 - 143 mmol/L HISTORICAL RESULTS Potassium, sr 4.1 3.4 - 5.0 mmol/L HISTORICAL RESULTS Chloride 104 99 - 108 mmol/L HISTORICAL RESULTS CO2 24 23 - 32 mmol/L HISTORICAL RESULTS Glucose 144 70 - 199 mg/dl HISTORICAL RESULTS Comment: [...] glucose. New reference ranges implemented 05/13/2013. Creatinine 1.08 0.60 - 1.30 mg/dl HISTORICAL RESULTS Comment: eGFR: >70 ml/min/1.73sq.m if non -Martiniquais. eGFR: >70 ml/min/1.73sq.m if -Martiniquais. AVE GFR for 60-69 yr. age group: ??85 ml/min/173sq.m Calculated using MDRD Equation BUN/creat ratio 20 10 - 20 HIST ORICAL RESULTS A. gap 14 7 - 14 mmol/L HISTORICAL RESULTS Osmo, calc 282 280 - 301 mOsm/kg HISTORICAL RESULTS Calcium 9.4 8.6 - 9.8 mg/dl HISTORICAL RESULTS Serum 05/05/2014 10:2 5 AM EXECUTIVE SOUS CHEF us Sparkle Colindres MD LAB BLOOD ORDERABLES Fin al Result HISTORICAL RESULTS * (ABNORMAL) Blood cell count (CBC) (05/05/2014 8:22 AM EXECUTIVE SOUS CHEF) WBC 5.6 4.5 - 10.6 K/cumm HISTORICAL RESULTS RBC 5.62 4.00 - 6.01 M/cumm HISTORICAL RESULTS Hgb 15.2 11.0 - 18.1 g/dl HISTORICAL RESULTS Hct 46.9 35.0 - 60.0 % HISTORICAL RESULTS MCV 83.4 80.0 - 100.0 fl HISTORICAL RESULTS MCH 27.0 27.0 - 31.0 pg HISTORICAL RESULTS MCHC 32.4(L) 33.0 - 37.0 g/dl HISTORICAL RESULTS Rdw 14.8(H) 11.5 - 14.6 % HISTORICAL RESULTS Platelets 206 150 - 400 K/cumm HISTORICAL RESULTS MPV 8.0 7.4 - 10.4 fl HISTORICAL RESULTS Lymphocytes 24.4 20.0 - 50.0 % HISTORICAL RESULTS Monos 11.4 1.0 - 13.0 % HISTORICAL RESULTS Neutrophils 64.2 30.0 - 70.0 % HISTORICAL RESULTS Lymphocytes, abs 1.4 0.9 - 5.3 K/cumm HISTORICAL RESULTS Monocytes, absolute 0.6 0.1 - 1.1 K/cumm HISTORICAL RESULTS Neutrophils, abs 3.6 1.3 - 7.4 K/cumm HISTORICAL RESULTS Blood specimen (specimen) 05/05/2014 8:22 AM EXECUTIVE SOUS CHEF us Sparkle Colindres MD LAB BLOOD ORDERABLES Fin al Result HISTORICAL RESULTS * Discharge Laboratory Cumulative Report (05/05/2014 12:00 AM EXECUTIVE SOUS CHEF) 05/05/2014 Narrative HISTORICAL RESULTS - 07/06/2014 2:40 AM EXECUTIVE SOUS CHEF Patient No: [id number] ? [facility] Patient Name: VILLA ALSTON ?[facility] Age: 68 YRS ?: 1945 ?Sex:M ?[address] )[phone] ?? Adm Dt: 12/11/2013 ?[place], [place] ??[address] Created: 07/06/2014 ??0240 ?? Pt. Type: D ? Discharge Dt: 05/05/2014 ? Pathologists: Brooklyn Ortiz MD Admit DrFela Attend Dr: SPARKLE COLINDRES MD ? BLOOD CELL COUNTS ?Collection Date: ?05/05/14 ? 03/10/14 ?Collection Time: ?0822 ? 0809 ? Ref Range: ?? Units: [4.50-10.60] /CMM ? WBC X 10^3 ?5.60 ? 6.00 [4.00-6.01] ??/CMM ? RBC X 10^6 ?5.62 ? 4.99 [11.0-18.1] ??G/DL ? HGB ? 15.2 ? 13.5 [35.0-60.0] ??% ?HCT ? 46.9 ? 41.6 [80.0-100.0] FL ? MCV ? 83.4 ? 83.3 [27.0-31.0] ??PG ? MCH ? 27.0 ? 27.1 [33.0-37.0] ??% ?MCHC ?32.4 L ? 32.5 L [11.5-14.6] ??% ?RDW ? 14.8 H ? 13.8 [150-400] ?? /CMM ? PLT X 10^3 ? 206 ?197 [7.4-10.4] ??FL ? MPV ?8.0 ?7.9 [20.0-50.0] ??% ?LYMPH PERCENT ? 24.4 ? 21.8 [1.0-13.0] ??% ?MONO PERCENT ?11.4 ?9.7 [30.0-70.0] ??% ?GRANULOCYE % ?64.2 ? 68.5 [0.9-5.3] ?? /CMM ? A LYMPH ?1.4 ?1.3 [1.3-7.4] ?? /CMM ? A GRANULOCYTE ?3.6 ?4.1 [0.1-1.1] ?? /CMM ? A MONO ? 0.6 ?0.6 ?Collection Date: ?02/10/14 ? 01/07/14 ?Collection Time: ?0752 ? 1150 ? Ref Range: ?? Units: [4.50-10.60] /CMM ? WBC X 10^3 ?5.60 ? 5.80 [4.00-6.01] ??/CMM ? RBC X 10^6 ?5.18 ? 5.12 [11.0-18.1] ??G/DL ? HGB ? 14.6 ? 14.6 [35.0-60.0] ??% ?HCT ? 44.5 ? 43.6 [80.0-100.0] FL ? MCV ? 85.9 ? 85.2 [27.0-31.0] ??PG ? MCH ? 28.2 ? 28.5 [33.0-37.0] ??% ?MCHC ?32.8 L ? 33.5 [11.5-14.6] ??% ?RDW ? 14.9 H ? 15.7 H [150-400] ?? /CMM ? PLT X 10^3 ? 218 ?244 [7.4-10.4] ??FL ? MPV ?8.8 ?8.6 [20.0-50.0] ??% ?LYMPH PERCENT ? 29.0 ? 25.5 [1.0-13.0] ??% ?MONO PERCENT ?10.9 ?9.9 [30.0-70.0] ??% ?GRANULOCYE % ?60.1 ? 64.6 Footnotes and Symbols: L = Low, H = High ?? CONTINUED ?Page: ?? 1 Patient No: [id number] ? [facility] Patient Name: VILLA ALSTON ?[facility] Age: 68 YRS ?: 1945 ?Sex:M ?[address] )[phone] ?? Adm Dt: 12/11/2013 ?[place], [place] ??[address] Created: 07/06/2014 ??0240 ?? Pt. Type: D ? Discharge Dt: 05/05/2014 ? Pathologists: Brooklyn Ortiz MD Admit Attend Dr: SPARKLE COLINDRES MD ? BLOOD CELL COUNTS ?Collection Date: ?02/10/14 ? 01/07/14 ?Collection Time: ?0752 ? 1150 ? Ref Range: ?? Units: [0.9-5.3] ?? /CMM ? A LYMPH ?1.6 ?1.5 [1.3-7.4] ?? /CMM ? A GRANULOCYTE ?3.4 ?3.7 [0.1-1.1] ?? /CMM ? A MONO ? 0.6 ?0.6 ?Collection Date: ?12/11/13 ?Collection Time: ?1020 ? Ref Range: ?? Units: [4.50-10.60] /CMM ? WBC X 10^3 ?6.10 [4.00-6.01] ??/CMM ? RBC X 10^6 ?5.32 [11.0-18.1] ??G/DL ? HGB ? 15.2 [35.0-60.0] ??% ?HCT ? 45.1 [80.0-100.0] FL ? MCV ? 84.8 [27.0-31.0] ??PG ? MCH ? 28.6 [33.0-37.0] ??% ?MCHC ?33.7 [11.5-14.6] ??% ?RDW ? 15.6 H [150-400] ?? /CMM ? PLT X 10^3 ? 243 [7.4-10.4] ??FL ? MPV ?8.5 [20.0-50.0] ??% ?LYMPH PERCENT ? 27.2 [1.0-13.0] ??% ?MONO PERCENT ?11.8 [30.0-70.0] ??% ?GRANULOCYE % ?61.0 [0.9-5.3] ?? /CMM ? A LYMPH ?1.7 [1.3-7.4] ?? /CMM ? A GRANULOCYTE ?3.7 [0.1-1.1] ?? /CMM ? A MONO ? 0.7 Footnotes and Symbols: H = High ?? CONTINUED ?Page: ?? 2 Patient No: [id number] ? [facility] Patient Name: VILLA ALSTON ?[facility] Age: 68 YRS ?: 1945 ?Sex:M ?[address] )[phone] ?? Adm Dt: 12/11/2013 ?[place], [place] ??[address] Created: 07/06/2014 ??0240 ?? Pt. Type: D ? Discharge Dt: 05/05/2014 ? Pathologists: Brooklyn Ortiz MD Admit Attend Dr: SPARKLE COLINDRES MD ? GENERAL CHEMISTRY ?Collection Date: ?05/05/14 ? 03/10/14 ?Collection Time: ?1025 ? 1050 ? Ref Range: ?? Units: [134-143] ?? MMOL/L ? SODIUM ? 138 ?145 H [3.4-5.0] ?? MMOL/L ? POTASSIUM ?4.1 ?3.6 [99.0-108.0] MMOL/L ? CHLORIDE ? 104.0 ?107.0 [23.0-32.0] ??MMOL/L ? TOTAL CO2 ? 24.3 ? 27.0 ?? [7-14] ?MMOL/L ? ANION GAP ? 14 ? 15 H ??[70-199] ?? MG/DL ?GLUCOSE ?144 f ?141 f [280-301] ?? MOSM/K ? CALCULATED OSMO ?282 ?293 [8.6-9.8] ?? MG/DL ?CALCIUM ?9.4 ?9.1 [6.0-23.0] ??MG/DL ?BUN ? 22.0 ? 18.2 ??[10-20] ? B/C RATIO ? 20 ? 18 Footnotes and Symbols: H = High, f = Footnote GLUCOSE (06/04/13 -- Current) [...] ranges implemented 05/13/2013. ?? CONTINUED ?Page: ?? 3 Patient No: [id number] ? [facility] Patient Name: VILLA ALSTON ?[facility] Age: 68 YRS ?: 1945 ?Sex:M ?[address] )[phone] ?? Adm Dt: 12/11/2013 ?[place] ??[id number] Created: 07/06/2014 ??0240 ?? Pt. Type: D ? Discharge Dt: 05/05/2014 ? Pathologists: Brooklyn Ortiz MD Admit Attend Dr: SPARKLE COLINDRES MD ? GENERAL CHEMISTRY ?Collection Date: ?05/05/14 ? 03/10/14 ?Collection Time: ?1025 ? 1050 ? Ref Range: ?? Units: [0.60-1.30] ??MG/DL ?CREATININE ?1.08 f ? 0.99 f ?05/05/14 1025 eGFR: >70 ml/min/1.73sq.m if non -Martiniquais. eGFR: >70 ml/min/1.73sq.m if -Martiniquais. AVE GFR for 60-69 yr. age group: ??85 ml/min/173sq.m Calculated using MDRD Equation FOOTNOTE ADDED ON ?? 05/05/14 ?? AT 1212 BY 999 ?03/10/14 1050 eGFR: >70 ml/min/1.73sq.m if non -Martiniquais. eGFR: >70 ml/min/1.73sq.m if -Martiniquais. AVE GFR for 60-69 yr. age group: ??85 ml/min/173sq.m Calculated using MDRD Equation FOOTNOTE ADDED ON ?? 03/10/14 ?? AT 1325 BY 999 ?Collection Date: ?02/10/14 ? 01/07/14 ?Collection Time: ?1200 ? 1115 ? Ref Range: ?? Units: [134-143] ?? MMOL/L ? SODIUM ? 141 ?138 [3.4-5.0] ?? MMOL/L ? POTASSIUM ?4.0 ?3.7 [99.0-108.0] MMOL/L ? CHLORIDE ? 106.0 ?104.0 [23.0-32.0] ??MMOL/L ? TOTAL CO2 ? 29.3 ? 27.6 ?? [7-14] ?MMOL/L ? ANION GAP ? 10 ? 10 Footnotes and Symbols: f = Footnote ?? CONTINUED ?Page: ?? 4 Patient No: [id number] ? [facility] Patient Name: VILLA ALSTON ?[facility] Age: 68 YRS ?: 1945 ?Sex:M ?[address] )[phone] ?? Adm Dt: 12/11/2013 ?[place] ??[id number] Created: 07/06/2014 ??0240 ?? Pt. Type: D ? Discharge Dt: 05/05/2014 ? Pathologists: Brooklyn Ortiz MD Admit Attend Dr: SPARKLE COLINDRES MD ? GENERAL CHEMISTRY ?Collection Date: ?02/10/14 ? 01/07/14 ?Collection Time: ?1200 ? 1115 ? Ref Range: ?? Units: ??[70-199] ?? MG/DL ?GLUCOSE ?121 f ?121 f [280-301] ?? MOSM/K ? CALCULATED OSMO ?282 ?278 L [8.6-9.8] ?? MG/DL ?CALCIUM ?9.2 ?8.8 [6.0-23.0] ??MG/DL ?BUN ? 12.0 ? 16.0 ??[10-20] ? B/C RATIO ? 12 ? 16 [0.60-1.30] ??MG/DL ?CREATININE ?1.00 f ? 1.00 f ?02/10/14 1200 eGFR: >70 ml/min/1.73sq.m if non -Martiniquais. eGFR: >70 ml/min/1.73sq.m if -Martiniquais. AVE GFR for 60-69 yr. age group: ??85 ml/min/173sq.m Calculated using MDRD Equation FOOTNOTE ADDED ON ?? 02/10/14 ?? AT 1335 BY 999 ?01/07/14 1115 eGFR: >70 ml/min/1.73sq.m if non -Martiniquais. eGFR: >70 ml/min/1.73sq.m if -Martiniquais. AVE GFR for 60-69 yr. age group: ??85 ml/min/173sq.m Calculated using MDRD Equation FOOTNOTE ADDED ON ?? 01/07/14 ?? AT 1325 BY 999 Footnotes and Symbols: L = [...] ?? END OF CHART ? Page: ?? 5 us Historical Provider LAB BLOOD ORDERABLES Iwona mackay Result HISTORICAL RESULTS * (ABNORMAL) Serum basic metabolic panel (03/10/2014 10:50 AM CDT) [facility] BUN 18.2 6.0 - 23.0 mg/dl HISTORICAL RESULTS Sodium 145(H) 134 - 143 mmol/L HISTORICAL RESULTS Potassium, sr 3.6 3.4 - 5.0 mmol/L HISTORICAL RESULTS Chloride 107 99 - 108 mmol/L HISTORICAL RESULTS CO2 27 23 - 32 mmol/L HISTORICAL RESULTS Glucose 141 70 - 199 mg/dl HISTORICAL RESULTS Comment: [...] glucose. New reference ranges implemented 05/13/2013. Creatinine 0.99 0.60 - 1.30 mg/dl HISTORICAL RESULTS Comment: eGFR: >70 ml/min/1.73sq.m if non -Martiniquais. eGFR: >70 ml/min/1.73sq.m if -Martiniquais. AVE GFR for 60-69 yr. age group: ??85 ml/min/173sq.m Calculated using MDRD Equation BUN/creat ratio 18 10 - 20 HIST ORICAL RESULTS A. gap 15(H) 7 - 14 mmol/L HISTORICAL RESULTS Osmo, calc 293 280 - 301 mOsm/kg HISTORICAL RESULTS Calcium 9.1 8.6 - 9.8 mg/dl HISTORICAL RESULTS Serum 03/10/2014 10:5 0 AM CDT Sparkle Colindres MD LAB BLOOD ORDERABLES Fin al Result HISTORICAL RESULTS * (ABNORMAL) Blood cell count (CBC) (03/10/2014 8:09 AM CDT) WBC 6.0 4.5 - 10.6 K/cumm HISTORICAL RESULTS RBC 4.99 4.00 - 6.01 M/cumm HISTORICAL RESULTS Hgb 13.5 11.0 - 18.1 g/dl HISTORICAL RESULTS Hct 41.6 35.0 - 60.0 % HISTORICAL RESULTS MCV 83.3 80.0 - 100.0 fl HISTORICAL RESULTS MCH 27.1 27.0 - 31.0 pg HISTORICAL RESULTS MCHC 32.5(L) 33.0 - 37.0 g/dl HISTORICAL RESULTS Rdw 13.8 11.5 - 14.6 % HISTORICAL RESULTS Platelets 197 150 - 400 K/cumm HISTORICAL RESULTS MPV 7.9 7.4 - 10.4 fl HISTORICAL RESULTS Lymphocytes 21.8 20.0 - 50.0 % HISTORICAL RESULTS Monos 9.7 1.0 - 13.0 % HISTORICAL RESULTS Neutrophils 68.5 30.0 - 70.0 % HISTORICAL RESULTS Lymphocytes, abs 1.3 0.9 - 5.3 K/cumm HISTORICAL RESULTS Monocytes, absolute 0.6 0.1 - 1.1 K/cumm HISTORICAL RESULTS Neutrophils, abs 4.1 1.3 - 7.4 K/cumm HISTORICAL RESULTS Blood specimen (specimen) 03/10/2014 8:09 AM CDT Sparkle Colindres MD LAB BLOOD ORDERABLES Fin al Result HISTORICAL RESULTS * Serum basic metabolic panel (02/10/2014 12:00 PM CDT) BUN 12.0 6.0 - 23.0 mg/dl HISTORICAL RESULTS Sodium 141 134 - 143 mmol/L HISTORICAL RESULTS Potassium, sr 4.0 3.4 - 5.0 mmol/L HISTORICAL RESULTS Chloride 106 99 - 108 mmol/L HISTORICAL RESULTS CO2 29 23 - 32 mmol/L HISTORICAL RESULTS Glucose 121 70 - 199 mg/dl HISTORICAL RESULTS Comment: [...] glucose. New reference ranges implemented 05/13/2013. Creatinine 1.00 0.60 - 1.30 mg/dl HISTORICAL RESULTS Comment: eGFR: >70 ml/min/1.73sq.m if non -Martiniquais. eGFR: >70 ml/min/1.73sq.m if -Martiniquais. AVE GFR for 60-69 yr. age group: ??85 ml/min/173sq.m Calculated using MDRD Equation BUN/creat ratio 12 10 - 20 HIST ORICAL RESULTS A. gap 10 7 - 14 mmol/L HISTORICAL RESULTS Osmo, calc 282 280 - 301 mOsm/kg HISTORICAL RESULTS Calcium 9.2 8.6 - 9.8 mg/dl HISTORICAL RESULTS Serum 02/10/2014 12:0 0 PM CDT Sparkle Colindres MD LAB BLOOD ORDERABLES Fin al Result HISTORICAL RESULTS * (ABNORMAL) Blood cell count (CBC) (02/10/2014 7:52 AM CDT) WBC 5.6 4.5 - 10.6 K/cumm HISTORICAL RESULTS RBC 5.18 4.00 - 6.01 M/cumm HISTORICAL RESULTS Hgb 14.6 11.0 - 18.1 g/dl HISTORICAL RESULTS Hct 44.5 35.0 - 60.0 % HISTORICAL RESULTS MCV 85.9 80.0 - 100.0 fl HISTORICAL RESULTS MCH 28.2 27.0 - 31.0 pg HISTORICAL RESULTS MCHC 32.8(L) 33.0 - 37.0 g/dl HISTORICAL RESULTS Rdw 14.9(H) 11.5 - 14.6 % HISTORICAL RESULTS Platelets 218 150 - 400 K/cumm HISTORICAL RESULTS MPV 8.8 7.4 - 10.4 fl HISTORICAL RESULTS Lymphocytes 29.0 20.0 - 50.0 % HISTORICAL RESULTS Monos 10.9 1.0 - 13.0 % HISTORICAL RESULTS Neutrophils 60.1 30.0 - 70.0 % HISTORICAL RESULTS Lymphocytes, abs 1.6 0.9 - 5.3 K/cumm HISTORICAL RESULTS Monocytes, absolute 0.6 0.1 - 1.1 K/cumm HISTORICAL RESULTS Neutrophils, abs 3.4 1.3 - 7.4 K/cumm HISTORICAL RESULTS Blood specimen (specimen) 02/10/2014 7:52 AM CDT Sparkle Colindres MD LAB BLOOD ORDERABLES Fin al Result HISTORICAL RESULTS * (ABNORMAL) Blood cell count (CBC) (01/07/2014 11:50 AM CDT) WBC 5.8 4.5 - 10.6 K/cumm HISTORICAL RESULTS RBC 5.12 4.00 - 6.01 M/cumm HISTORICAL RESULTS Hgb 14.6 11.0 - 18.1 g/dl HISTORICAL RESULTS Hct 43.6 35.0 - 60.0 % HISTORICAL RESULTS MCV 85.2 80.0 - 100.0 fl HISTORICAL RESULTS MCH 28.5 27.0 - 31.0 pg HISTORICAL RESULTS MCHC 33.5 33.0 - 37.0 g/dl HISTORICAL RESULTS Rdw 15.7(H) 11.5 - 14.6 % HISTORICAL RESULTS Platelets 244 150 - 400 K/cumm HISTORICAL RESULTS MPV 8.6 7.4 - 10.4 fl HISTORICAL RESULTS Lymphocytes 25.5 20.0 - 50.0 % HISTORICAL RESULTS Monos 9.9 1.0 - 13.0 % HISTORICAL RESULTS Neutrophils 64.6 30.0 - 70.0 % HISTORICAL RESULTS Lymphocytes, abs 1.5 0.9 - 5.3 K/cumm HISTORICAL RESULTS Monocytes, absolute 0.6 0.1 - 1.1 K/cumm HISTORICAL RESULTS Neutrophils, abs 3.7 1.3 - 7.4 K/cumm HISTORICAL RESULTS Blood specimen (specimen) 01/07/2014 11:50 AM CDT us Sparkle Colindres MD LAB BLOOD ORDERABLES Fin al Result HISTORICAL RESULTS * (ABNORMAL) Serum basic metabolic panel (01/07/2014 11:15 AM CDT) BUN 16.0 6.0 - 23.0 mg/dl HISTORICAL RESULTS Sodium 138 134 - 143 mmol/L HISTORICAL RESULTS Potassium, sr 3.7 3.4 - 5.0 mmol/L HISTORICAL RESULTS Chloride 104 99 - 108 mmol/L HISTORICAL RESULTS CO2 28 23 - 32 mmol/L HISTORICAL RESULTS Glucose 121 70 - 199 mg/dl HISTORICAL RESULTS Comment: [...] glucose. New reference ranges implemented 05/13/2013. Creatinine 1.00 0.60 - 1.30 mg/dl HISTORICAL RESULTS Comment: eGFR: >70 ml/min/1.73sq.m if non -Martiniquais. eGFR: >70 ml/min/1.73sq.m if -Martiniquais. AVE GFR for 60-69 yr. age group: ??85 ml/min/173sq.m Calculated using MDRD Equation BUN/creat ratio 16 10 - 20 HIST ORICAL RESULTS A. gap 10 7 - 14 mmol/L HISTORICAL RESULTS Osmo, calc 278(L) 280 - 301 mOsm/kg HISTORICAL RESULTS Calcium 8.8 8.6 - 9.8 mg/dl HISTORICAL RESULTS Serum 01/07/2014 11:1 5 AM CDT Sparkle Colindres MD LAB BLOOD ORDERABLES Fin al Result Performing Organization Address [facility] de Phone Number HISTORICAL RESULTS * (ABNORMAL) Blood cell count (CBC) (12/11/2013 10:20 AM CDT) WBC 6.1 4.5 - 10.6 K/cumm HISTORICAL RESULTS RBC 5.32 4.00 - 6.01 M/cumm HISTORICAL RESULTS Hgb 15.2 11.0 - 18.1 g/dl HISTORICAL RESULTS Hct 45.1 35.0 - 60.0 % HISTORICAL RESULTS MCV 84.8 80.0 - 100.0 fl HISTORICAL RESULTS MCH 28.6 27.0 - 31.0 pg HISTORICAL RESULTS MCHC 33.7 33.0 - 37.0 g/dl HISTORICAL RESULTS Rdw 15.6(H) 11.5 - 14.6 % HISTORICAL RESULTS Platelets 243 150 - 400 K/cumm HISTORICAL RESULTS MPV 8.5 7.4 - 10.4 fl HISTORICAL RESULTS Lymphocytes 27.2 20.0 - 50.0 % HISTORICAL RESULTS Monos 11.8 1.0 - 13.0 % HISTORICAL RESULTS Neutrophils 61.0 30.0 - 70.0 % HISTORICAL RESULTS Lymphocytes, abs 1.7 0.9 - 5.3 K/cumm HISTORICAL RESULTS Monocytes, absolute 0.7 0.1 - 1.1 K/cumm HISTORICAL RESULTS Neutrophils, abs 3.7 1.3 - 7.4 K/cumm HISTORICAL RESULTS Blood specimen (specimen) 12/11/2013 10:20 AM CDT Sparkle Colindres MD LAB BLOOD ORDERABLES Fin al Result Performing Organization Address [facility] Co de Phone Number HISTORICAL RESULTS documented in this encounter Visit Diagnoses Diagnosis Polycythemia vera (HCC) documented in this encounter Care Teams Cosmetic Assembler Relationship Specialty Start Date End Date Wesley Em MD PCP - General 10/12/12 08/31/16 documented as of this encounter
--- OUTSIDE RECORDS SUMMARY | 2024-06-18 18:18 | XMS_ITS | Encounter Summary ---
Author Organization [facility] Healthcare Address [address] [place] [address] Care Team Providers Care Finance And Administration Manager Name Role Phone Wesley Em MD Primary Care Provider [phone] Encounter Details Date Type Department Care Team (Late st Contact Info) Description 03/07/2014 10:15 AM CDT - 03/07/2014 11:59 PM CDT Hospital Encounter [facility] Wesley Em MD [address] [place] [id number] Type 2 or unspecified type diabetes mellitus, uncontrolled; Essential hypertension Social History Tobacco Use Types Packs/Day Years Used Date Smoking Tobacco: Former Alcohol Use Standard Drinks/Week Comments No 0 (1 standard drink = 0.6 oz pur e alcohol) Sex and Gender Information Value Date Recorded Sex Assigned at Not on file 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
--- OUTSIDE RECORDS SUMMARY | 2024-06-18 18:18 | XMS_ITS | Encounter Summary ---
Author Organization [facility] Healthcare Address [address] [place] [address] Care Team Providers Care Beater Engineer Helper Name Role Phone Wesley Em MD Primary Care Provider [phone] Encounter Details Date Type Department Care Team (Late st Contact Info) Description 11/04/2010 8:52 AM CDT - 11/04/2010 11:59 PM CDT Hospital Encounter [facility]INCON[facility] Vergara MD [address] [place] [phone] Dietary counseling and surveillance; Type 2 or unspecified type diabetes mellitus, uncontrolled Social History Tobacco Use Types Packs/Day Years Used Date Smoking Tobacco: Never Assessed Sex and Gender Information Value Date Recorded Sex Assigned at Not on file 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
--- OUTSIDE RECORDS SUMMARY | 2024-06-18 18:18 | XMS_ITS | Encounter Summary ---
Author Organization [facility] Healthcare Address [address] [place] [address] Care Team Providers Care R D Internship Name Role Phone Wesley Em MD Primary Care Provider [phone] Encounter Details Date Type Department Care Team (Late st Contact Info) Description 11/16/2010 12:01 AM CDT - 11/16/2010 11:59 PM CDT Hospital Encounter [facility] CLINCONW[facility]ley Vergara MD [address] [place] [phone] Dietary counseling and surveillance; Type 2 or unspecified type diabetes mellitus, uncontrolled; Essential hypertension Social History Tobacco Use Types Packs/Day Years Used Date Smoking Tobacco: Never Assessed Sex and Gender Information Value Date Recorded Sex Assigned at Not on file 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
--- OUTSIDE RECORDS SUMMARY | 2024-06-18 18:18 | XMS_ITS | Encounter Summary ---
Author Organization [facility] Healthcare Address [address] [place] [address] Care Team Providers Care Steam Bone Press Tender Name Role Phone Wesley Em MD Primary Care Provider [phone] Encounter Details Date Type Department Care Team (Late st Contact Info) Description 07/05/2010 12:01 AM [facility] - 07/05/2010 11:59 PM [facility] Hospital Encounter [facility]CON[facility] Wesley Em MD [address] [place] [id number] Chronic sinusitis Social History Tobacco Use Types Packs/Day Years Used Date Smoking Tobacco: Never Assessed Sex and Gender Information Value Date Recorded Sex Assigned at Not on file 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
--- OUTSIDE RECORDS SUMMARY | 2024-06-18 18:18 | XMS_ITS | Encounter Summary ---
Author Organization [facility] Facility Care Team Providers Care Fire Prevention Captain Name Role Phone Wesley Em MD Primary Care Provider [phone] Encounter Details Date Type Department Care Team (Latest Contact Info) Description 10/05/2010 11:42 AM CDT - 10/05/2010 11:59 PM CDT Hospital Encounter [facility] CLINCONV Wesley Pyle Jr., MD [address] [place] [address] [address] [place] [address] Pre-procedural laboratory examination; Pre-operative cardiovascular examination; Primary localized osteoarthrosis, lower leg Social History Tobacco Use Types Packs/Day Years Used Date Smoking Tobacco: Never Assessed Sex and Gender Information Value Date Recorded Sex Assigned at Not on file 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
--- OUTSIDE RECORDS SUMMARY | 2024-06-18 18:18 | XMS_ITS | Encounter Summary ---
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
--- OUTSIDE RECORDS SUMMARY | 2024-06-18 18:18 | XMS_ITS | Encounter Summary ---
Author Organization [facility] Healthcare Address [address] [place] [address] Care Team Providers Care Call Box Wirer Name Role Phone Wesley Em MD Primary Care Provider [phone] Encounter Details Date Type Department Care Team (Late st Contact Info) Description 11/07/2010 11:27 PM CDT - 11/08/2010 4:48 AM CDT Hospital Encounter [facility] Jose Brooks MD [address] [facility] [place] [address] Wesley Em MD [address] [facility] [address] [place], [place] [address], [place] [address] Sebaceous cyst; Traumatic blister of trunk; Accident; Unspecified place of occurrence Social History Tobacco Use Types Packs/Day Years Used Date Smoking Tobacco: Never Assessed Sex and Gender Information Value Date Recorded Sex Assigned at Not on file 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
--- OUTSIDE RECORDS SUMMARY | 2024-06-18 18:18 | XMS_ITS | Encounter Summary ---
Author Organization [facility] Healthcare Address [address] [place] [address] Care Team Providers Care Direct Service Worker Name Role Phone Wesley Em MD Primary Care Provider Encounter Details Date Type Department Care Team (Late st Contact Info) Description 03/22/2007 1:52 AM CDT - 03/22/2007 4:05 AM CDT Hospital Encounter [facility] Jose Brooks MD [address] [facility] [address] [place] [address] Wesley Em MD [address] [facility] [address] [place], [place] [address], [place] [address] Social History Tobacco Use Types Packs/Day Years Used Date Smoking Tobacco: Never Assessed Sex and Gender Information Value Date Recorded Sex Assigned at Not on file 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
--- OUTSIDE RECORDS SUMMARY | 2024-06-18 18:28 | XMS_ITS | Continuity of Care Document ---
Author Organization [facility] Address [address] [place] [address] Phone Care Team Providers Care Wardrobe Assistant Name Role Phone Administrative, Provider Unavailable Unavail able Medications Medication Instructions Dosage Effective Dates (start - stop) Status Comments Perry 5 mg-325 mg Tab take 1 - 2 by Oral route q 4-6 hr prn 1-2 - Active Percocet 5 mg-325 mg Tab 1 -2 Q 4-6 HR PRN PAIN - Active Flexeril 10 mg Tab 1 TID - Active Procedures Procedure Date Medical Record Copy Medical Record Copy Per Page Office/outpatient visit,[facility] 2010 Debride 6+ nails, any method Formula 3 Antifungal [facility] 2010 Strapping of ankle Postop followup visit Postop followup visit X-ray exam of knee, 3 views Arthroplasty, total knee Postop followup visit Postop followup visit X-ray exam of knee, 3 views Arthroplasty, total knee [facility] 2010 X-ray exam of knee, 1 or2 views 011 X-ray exam of knee, 1 or2 views 011 X-ray exam of both knees, standing Advance Directives Directive Yes / No Effective Date File Name No Information Encounters Encounter Description Practice Location Reason(s) For Visit Diagnoses Date Provider Providers Copied on Encounter [facility], [address] [address], [place], [place], [id number], [place] tel:[phone] [facility] No Information 1 Administrati ve Provider. [address] [facility] [address], [place], [place], [id number], [place]. tel:[phone] Referring Provider: Wesley Em, [address] [facility] [address], [place], [address]. tel:[phone] Office/outpa tient visit,[facility], [address] [address], [place], [place], [id number], [place] tel:[phone] [facility] PLANTAR FIBROMATOSISTA LIPES CALCANEOVALGUS DERMATOPHYTOSI S OF NAILDiabetes Mellitus Type 2, Uncomplicated 1 Mark Freire [address] [facility], [facility] [address], [place], [place], [id number], [place]. tel:[phone] Referring Provider: Yu Black, [address] [place] [address], [place], [address] . tel:[phone] [facility], [address] [address], [place], [place], [id number], [place] tel:[phone] [facility] TALIPES CALCANEOVALGUS PLANTAR FIBROMATOSISEN THESOPATHY, SITE NOSDiabetes Mellitus Type 2, Uncomplicated 1 Mark Freire [address] [facility], [facility] [address], [place], [place], [id number], [place]. tel:[phone] Referring Provider: Yu Black, [address] [facility] [address], [place], [address] . tel:[phone] [facility], [address] [address], [place], [id number], [place] tel:[phone] [facility] JOINT REPLACED KNEELOC PRIM OSTEOART-L/LEG AFTERCARE JOINT REPLACE 1 Edenilson Olson. [address] [facility], [address], [place], [place], [id number], [place]. tel:[phone] [facility], [address] [facility] [address], [place], [place], [id number], [place] tel:[phone] [facility] JOINT REPLACED KNEELOC PRIM OSTEOART-L/LEG AFTERCARE JOINT REPLACEJOINT PAIN-L/LEG 1 Edenilson Olson. [address] [facility], [address], [place], [place], [address], [place]. tel:[phone] [facility], [address] [address], [place], [place], [address], [place] tel:[phone] [facility] No Information 1 Edenilson Olson. [address] [facility], [facility] [address], [place], [place], [id number], [place]. tel:[phone] [facility], [address] [address], [place], [place], [address], [place] tel:[phone] [facility] LOC PRIM OSTEOART-L/LEG 1 Edenilson Olson. [address] [facility], [facility] [address], [place], [place], [address], [place]. tel:[phone] [facility], [address] [address], [place], [place], [address], [place] tel:[phone] [facility] LOC PRIM OSTEOART-L/LEG 1 Edenilson Olson. [address] [facility], [address] [address], [place], [place], [address], [place]. tel:[phone] [facility], [address] [facility] [address], [place], [id number], [place] tel:[phone] [facility] No Information 1 Edenilson Olson. [address] [facility], [address] [address], [place], [place], [address], [place]. tel:[phone] [facility] [employer], [address], [id number], [place] tel:[phone] [facility] [employer] [facility] JOINT PAIN-L/LEGJOIN T REPLACED KNEEAFTERCARE JOINT REPLACE 1 Edenilson Olson. [address] [facility], [address] [address], [place], [place], [address], [place]. tel:[phone] [facility] [employer], [address], [id number], [place] tel:[phone] [facility] LOC PRIM OSTEOART-L/LEG 1 Pyle Wesley. [address] [address], [place], [place], [address], [place]. tel:[phone] [facility] [employer], [address] [address], [place], [place], [address], [place] tel:[phone] [facility] [employer] LOC PRIM OSTEOART-L/LEG JOINT PAIN-L/LEG 1 Pyle Wesley. [address] [address], [place], [place], [address], [place]. tel:[phone] Family History Family Member Type Diagnosis Age At Onset No Information Payers Payer name Insurance type Covered alliance party ID Authoriza tion(s) No Information Social History Type Description Quantity Date Captured Comments Sex Male Smoking Status No Information Chief Complaint And Reason For Visit No Information Reason For Referral Reason For Referral No Information History Of Present Illness Encounter Date Complaint History Of Prese nt Illness No Information Functional Status Date Functional Assessmen t No Information Instructions Date Instruction Additional Infor mation No Information Assessments Type Assessment Date No Information Patient Care Teams Name Effective Dates (start - stop) Status Members No Information
--- OUTSIDE RECORDS SUMMARY | 2024-06-18 18:28 | XMS_ITS | Clinical Summary ---
Author Organization Unknown Care Team Providers Care Satellite Dish Installer Name Role Phone ARABELLA INTERSTATE, APARNA Unavailable Umu rafi HERRERA RN, MISA Unavailable Unavailabl e DANAE INTERVENTIONAL CARDIOLOGIST, LIDIA Unavailable Unavailable RM PT, ZELDA Unavailable Unavailable REENA LACE PINNER, CRISS Unavailable Unavailabl e CARLOS OT, CHARLI Unavailable Unavailable Payers Payer Name Policy Type Policy Number Effective Date Expira tion Date MEDICARE.[place] [id number] Problems Condition Name Condition Details Condition Category Status Onset Date Resolution Date Last Treatment Date Treating Clinician Comments PARKINSON'S DIS W/O DYSKINESIA, W/O MENTION OF FLUCTUATIONS Active 07-03 00:00: 00 DEM IN OTHER DIS CLASSD ELSWHR, MOD, WITH OTHER BEH DISTURB Active 2023-07 00:00: 00 ESSENTIAL (PRIMARY) HYPERTENSION Active 2023-07 00:00: 00 POLYCYTHEMIA VERA Active 07-03 00:00: 00 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 Active 07-03 00:00: 00 ATHSCL HEART DISEASE OF [place] CORONARY ARTERY W/O ANG PCTRS Active 07-03 00:00: 00 HYPERLIPIDEM IA, UNSPECIFIED Active 07-03 00:00: 00 REPEATED FALLS Active 2023-07 00:00: 00 UNSPECIFIED ATRIAL FIBRILLATION Active 07-03 00:00: 00 TYPE 2 DIABETES MELLITUS WITHOUT COMPLICATION S Active 07-03 00:00: 00 UNSPECIFIED HEARING LOSS, UNSPECIFIED EAR Active 07-03 00:00: 00 OTHER VISUAL DISTURBANCES Active 07-03 00:00: 00 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 Ordering Clinician Indication Dosage Frequency Signature (SIG) Comments Components atorvastati n 40 mg tablet 12-09 00:00: 00 04-29 23:59 :00 No [id number] CHOLESTEROL 1 tablet DAILY 1 tablet DAILY (route: oral) Med Classific ation: Cardiovas cular Therapy Agents metoprolol tartrate 25 mg tablet 12-09 00:00: 00 12-13 00:00 :00 No [id number] Per instruc tions Per instructio ns (route: oral) Med Classific ation: Cardiovas cular Therapy Agents clopidogrel 75 mg tablet 11-18 00:00: 00 04-29 23:59 :00 No [id number] BLOOD THINNER 1 tablet DAILY 1 tablet DAILY (route: oral) Med Classific ation: Hematolog ical Agents finasteride 5 mg tablet 11-18 00:00: 00 04-29 23:59 :00 No [id number] PROSTATE 1 tablet DAILY 1 tablet DAILY (route: oral) Med Classific ation: Genitouri nary Therapy atorvastati n 40 mg tablet 10-07 00:00: 00 12-13 00:00 :00 No [id number] Per instruc tions Per instructio ns (route: oral) Med Classific ation: Cardiovas cular Therapy Agents atorvastati n 40 mg tablet 10-07 00:00: 00 12-13 00:00 :00 No [id number] Per instruc tions Per instructio ns (route: oral) Med Classific ation: Cardiovas cular Therapy Agents metoprolol succinate ER 50 mg tablet,exte nded release 24 hr 10-07 00:00: 00 12-13 00:00 :00 No [id number] Per instruc tions Per instructio ns (route: oral) Med Classific ation: Cardiovas cular Therapy Agents metoprolol succinate ER 50 mg tablet,exte nded release 24 hr 10-07 00:00: 00 04-29 23:59 :00 No [id number] BLOOD PRESSURE 1 tablet DAILY 1 tablet DAILY (route: oral) Med Classific ation: Cardiovas cular Therapy Agents hydrochloro thiazide 12.5 mg tablet 09-22 00:00: 00 12-13 00:00 :00 No [id number] Per instruc tions Per instructio ns (route: oral) Med Classific ation: Cardiovas cular Therapy Agents metoprolol tartrate 25 mg tablet 09-22 00:00: 00 12-13 00:00 :00 No [id number] Per instruc tions Per instructio ns (route: oral) Med Classific ation: Cardiovas cular Therapy Agents clonidine HCl 0.1 mg tablet 09-20 00:00: 00 12-13 00:00 :00 No [id number] Per instruc tions Per instructio ns (route: oral) Med Classific ation: Cardiovas cular Therapy Agents atorvastati n 80 mg tablet 09-16 00:00: 00 12-13 00:00 :00 No [id number] Per instruc tions Per instructio ns (route: oral) Med Classific ation: Cardiovas cular Therapy Agents clopidogrel 75 mg tablet 09-16 00:00: 00 12-13 00:00 :00 No [id number] Per instruc tions Per instructio ns (route: oral) Med Classific ation: Hematolog ical Agents esomeprazol e magnesium 40 mg capsule,del ayed release 09-16 00:00: 00 12-13 00:00 :00 No [id number] Per instruc tions Per instructio ns (route: oral) Med Classific ation: Gastroint estinal Therapy Agents finasteride 5 mg tablet 3-17 00:00: 00 12-13 00:00 :00 No [id number] Per instruc tions Per instructio ns (route: oral) Med Classific ation: Genitouri nary Therapy Aspirin Low Dose 81 mg tablet,cedric yed release 12-13 00:00: 00 04-29 23:59 :00 No [id number] BLOOD THINNER 1 tablet DAILY 1 tablet DAILY (route: oral) Med Classific ation: Hematolog ical Agents lidocaine 5 % topical patch 12-13 00:00: 00 04-29 23:59 :00 No [id number] PAIN 1 adhesiv e patch, medicat ed EVERY 12 HOURS 1 adhesive patch, medicated EVERY 12 HOURS (route: topical) Med Classific ation: Dermatolo gical oxycodone 5 mg capsule 12-13 00:00: 00 04-29 23:59 :00 No [id number] NEEDED FOR MODERATE PAIN 1 capsule EVERY 8 HOURS 1 capsule EVERY 8 HOURS (route: oral) Med Classific ation: Analgesic , Anti-infl ammatory or Antipyret ic tramadol 50 mg tablet 2023-07 0-12 00:00: 00 05-01 00:00 :00 No [id number] Unavailable Per instruc tions EVERY 6 HOURS NEEDED Per instructio ns EVERY 6 HOURS NEEDED (route: oral) Med Classific ation: Analgesic , Anti-infl ammatory or Antipyret ic amlodipine 5 mg tablet 2023-07 0-03 00:00: 00 Yes [id number] BLOOD PRESSURE 1 tablet DAILY 1 tablet DAILY (route: oral) Med Classific ation: Cardiovas cular Therapy Agents lisinopril 20 mg tablet 2023-07 0-03 00:00: 00 Yes [id number] BLOOD PRESSURE 1 tablet DAILY 1 tablet DAILY (route: oral) Med Classific ation: Cardiovas cular Therapy Agents acetaminoph en 500 mg capsule 2023-07 0- 00:00: 00 Yes [id number] PAIN 2 capsule 2 TIMES DAILY 2 capsule 2 TIMES DAILY (route: oral) Med Classific ation: Analgesic , Anti-infl ammatory or Antipyret ic aspirin 81 mg tablet,cedric yed release 2023-07 00:00: 00 Yes [id number] BLOOD THINNER 1 tablet DAILY 1 tablet DAILY (route: oral) Med Classific ation: Hematolog ical Agents atorvastati n 40 mg tablet 2023-07 00:00: 00 Yes [id number] CHOLESTEROL 1 tablet DAILY 1 tablet DAILY (route: oral) Med Classific ation: Cardiovas cular Therapy Agents docusate sodium 100 mg tablet 2023-07 00:00: 00 Yes [id number] STOOL SOFTNER 1 tablet DAILY 1 tablet DAILY (route: oral) Med Classific ation: Gastroint estinal Therapy Agents finasteride 5 mg tablet 2023-07 00:00: 00 Yes [id number] PROSTATE 1 tablet DAILY 1 tablet DAILY (route: oral) Med Classific ation: Genitouri nary Therapy magnesium 400 mg (as magnesium oxide) tablet 2023-07 00:00: 00 Yes [id number] SUPPLEMENT 1 tablet 2 TIMES DAILY 1 tablet 2 TIMES DAILY (route: oral) Med Classific ation: Electroly te Balance-N utritiona l Products memantine 5 mg tablet 2023-07 00:00: 00 Yes [id number] DEMONSTRATE 1 tablet 2 TIMES DAILY 1 tablet 2 TIMES DAILY (route: oral) Med Classific ation: Cognitive Disorder Therapy omeprazole 20 mg capsule,del ayed release 2023-07 00:00: 00 Yes [id number] HEARTBURN 1 capsule DAILY 1 capsule DAILY (route: oral) Med Classific ation: Gastroint estinal Therapy Agents Xarelto 20 mg tablet 2023-07 00:00: 00 Yes [id number] BLOOD THINNER 1 tablet DAILY 1 tablet DAILY (route: oral) Med Classific ation: Hematolog ical Agents Vital Signs Vital Name Observation Time Observation Value Commen ts Temperature 2024-06-17 13:36:00.000 97.9 [degF] Temperature 2024-06-17 13:18:00.000 97.9 [degF] Temperature 2024-06-10 15:32:00.000 97.3 [degF] Temperature 2024-06-10 13:54:00.000 97.3 [degF] Temperature 2024-06-10 12:29:00.000 97.8 [degF] Temperature 2024-06-04 14:00:00.000 98 [degF] Temperature 2024-06-04 11:22:00.000 97.2 [degF] Temperature 2024-05-29 12:48:00.000 97.8 [degF] Temperature 2024-05-28 12:04:00.000 97.1 [degF] Temperature 2024-05-24 13:53:00.000 98 [degF] Temperature 2024-05-23 13:16:00.000 97.8 [degF] Temperature 2024-05-17 12:44:00.000 97.3 [degF] Temperature 2024-05-15 12:51:00.000 96.8 [degF] Temperature 2024-05-15 11:13:00.000 96.8 [degF] Temperature 2024-05-10 11:52:00.000 98.5 [degF] Temperature 2024-05-08 14:27:00.000 97.5 [degF] Temperature 2024-05-06 12:03:00.000 97.3 [degF] Temperature 2024-05-01 12:40:00.000 97.3 [degF] BMI (%) 2024-05-01 12:22:13.000 27 kg/m2 Height 2024-05-01 12:22:07.000 69 [in_us] Pulse 2024-06-17 13:36:00.000 60 /min Pulse 2024-06-17 13:18:00.000 60 /min Pulse 2024-06-10 15:32:00.000 60 /min Pulse 2024-06-10 13:54:00.000 60 /min Pulse 2024-06-10 12:29:00.000 62 /min Pulse 2024-06-04 14:00:00.000 61 /min Pulse 2024-06-04 11:22:00.000 60 /min Pulse 2024-05-29 12:48:00.000 60 /min Pulse 2024-05-28 12:04:00.000 63 /min Pulse 2024-05-24 13:53:00.000 60 /min Pulse 2024-05-23 13:16:00.000 60 /min Pulse 2024-05-17 12:44:00.000 61 /min Pulse 2024-05-15 12:51:00.000 60 /min Pulse 2024-05-15 11:13:00.000 60 /min Pulse 2024-05-10 11:52:00.000 69 /min Pulse 2024-05-08 14:27:00.000 60 /min Pulse 2024-05-06 12:03:00.000 74 /min Pulse 2024-05-01 12:40:00.000 70 /min O2 Saturation (%) 2024-06-17 13:36:00.000 98 % O2 Saturation (%) 2024-06-17 13:18:00.000 98 % O2 Saturation (%) 2024-06-10 15:32:00.000 99 % O2 Saturation (%) 2024-06-10 13:54:00.000 99 % O2 Saturation (%) 2024-06-10 12:30:00.000 100 % O2 Saturation (%) 2024-06-04 14:00:00.000 96 % O2 Saturation (%) 2024-06-04 11:22:00.000 95 % O2 Saturation (%) 2024-05-29 12:48:00.000 98 % O2 Saturation (%) 2024-05-28 12:04:00.000 97 % O2 Saturation (%) 2024-05-24 13:53:00.000 96 % O2 Saturation (%) 2024-05-23 13:16:00.000 97 % O2 Saturation (%) 2024-05-17 12:46:00.000 100 % O2 Saturation (%) 2024-05-15 12:51:00.000 98 % O2 Saturation (%) 2024-05-15 11:13:00.000 97 % O2 Saturation (%) 2024-05-10 11:52:00.000 98 % O2 Saturation (%) 2024-05-08 14:27:00.000 98 % O2 Saturation (%) 2024-05-06 12:03:00.000 97 % O2 Saturation (%) 2024-05-01 12:40:00.000 98 % Respirations 2024-06-17 13:36:00.000 18 /min Respirations 2024-06-17 13:18:00.000 18 /min Respirations 2024-06-10 15:32:00.000 18 /min Respirations 2024-06-10 13:54:00.000 18 /min Respirations 2024-06-10 12:29:00.000 15 /min Respirations 2024-06-04 14:00:00.000 18 /min Respirations 2024-06-04 11:22:00.000 18 /min Respirations 2024-05-29 12:48:00.000 18 /min Respirations 2024-05-28 12:04:00.000 19 /min Respirations 2024-05-24 13:53:00.000 18 /min Respirations 2024-05-23 13:16:00.000 18 /min Respirations 2024-05-17 12:44:00.000 18 /min Respirations 2024-05-15 12:51:00.000 18 /min Respirations 2024-05-15 11:13:00.000 18 /min Respirations 2024-05-10 11:52:00.000 16 /min Respirations 2024-05-08 14:27:00.000 18 /min Respirations 2024-05-06 12:03:00.000 18 /min Respirations 2024-05-01 12:40:00.000 20 /min Weight (lbs) 2024-05-01 12:22:13.000 183 [lb_av] Systolic Blood Pressure 2024-06-17 13:36:00.000 140 mm [Hg] Systolic Blood Pressure 2024-06-17 13:18:00.000 140 mm [Hg] Systolic Blood Pressure 2024-06-10 15:32:00.000 110 mm [Hg] Systolic Blood Pressure 2024-06-10 13:54:00.000 110 mm [Hg] Systolic Blood Pressure 2024-06-10 12:29:00.000 104 mm [Hg] Systolic Blood Pressure 2024-06-04 14:00:00.000 116 mm [Hg] Systolic Blood Pressure 2024-06-04 11:22:00.000 118 mm [Hg] Systolic Blood Pressure 2024-05-29 12:48:00.000 122 mm [Hg] Systolic Blood Pressure 2024-05-28 12:04:00.000 116 mm [Hg] Systolic Blood Pressure 2024-05-24 13:53:00.000 110 mm [Hg] Systolic Blood Pressure 2024-05-23 13:16:00.000 122 mm [Hg] Systolic Blood Pressure 2024-05-17 12:44:00.000 124 mm [Hg] Systolic Blood Pressure 2024-05-15 12:51:00.000 138 mm [Hg] Systolic Blood Pressure 2024-05-15 11:13:00.000 142 mm [Hg] Systolic Blood Pressure 2024-05-10 12:15:00.000 169 mm [Hg] Systolic Blood Pressure 2024-05-08 14:27:00.000 120 mm [Hg] Systolic Blood Pressure 2024-05-06 12:03:00.000 124 mm [Hg] Systolic Blood Pressure 2024-05-01 12:40:00.000 132 mm [Hg] Diastolic Blood Pressure 2024-06-17 13:36:00.000 68 mm [Hg] Diastolic Blood Pressure 2024-06-17 13:18:00.000 68 mm [Hg] Diastolic Blood Pressure 2024-06-10 15:32:00.000 58 mm [Hg] Diastolic Blood Pressure 2024-06-10 13:54:00.000 58 mm [Hg] Diastolic Blood Pressure 2024-06-10 12:29:00.000 70 mm [Hg] Diastolic Blood Pressure 2024-06-04 14:00:00.000 60 mm [Hg] Diastolic Blood Pressure 2024-06-04 11:22:00.000 64 mm [Hg] Diastolic Blood Pressure 2024-05-29 12:48:00.000 78 mm [Hg] Diastolic Blood Pressure 2024-05-28 12:04:00.000 62 mm [Hg] Diastolic Blood Pressure 2024-05-24 13:53:00.000 68 mm [Hg] Diastolic Blood Pressure 2024-05-23 13:16:00.000 62 mm [Hg] Diastolic Blood Pressure 2024-05-17 12:44:00.000 70 mm [Hg] Diastolic Blood Pressure 2024-05-15 12:51:00.000 68 mm [Hg] Diastolic Blood Pressure 2024-05-15 11:13:00.000 72 mm [Hg] Diastolic Blood Pressure 2024-05-10 12:15:00.000 89 mm [Hg] Diastolic Blood Pressure 2024-05-08 14:27:00.000 64 mm [Hg] Diastolic Blood Pressure 2024-05-06 12:03:00.000 76 mm [Hg] Diastolic Blood Pressure 2024-05-01 12:40:00.000 70 mm [Hg] Plan of Treatment Planned Activity Planned Date Details Comments Future Scheduled Test RN TO OBSE RVE, ASSESS, EVALUATE, AND DEVELOP AN INDIVIDUALIZED PLAN OF CARE. AGENCY MAY ACCEPT ORDERS FROM CONSULTING PHYSICIANS . RN TO OBSERVE AND ASSESS, INTERVENTIONAL CARDIOLOGIST/TOOL MAINTENANCE WORKER TO OBSERVE FOR RISK FOR FALLS AND INSTRUCT IN FALL PREVENTION, HOME SAFETY, MEDICATION MANAGEMENT, INFECTION PREVENTION, AND NUTRITION MANAGEMENT. RN/INTERVENTIONAL CARDIOLOGIST/TOOL MAINTENANCE WORKER NURSE MAY PERFORM O2 SATURATION LEVEL ON ADMISSION AND PRN FOR EVERY VISIT FOR RN TO ASSESS/INTERVENTIONAL CARDIOLOGIST TO OBSERVE PATIENT, WITH NOTIFICATION TO THE PHYSICIAN IF SATURATION IS 90% IN THE ABSENCE OF MORE SPECIFIC PARAMETERS FROM THE PHYSICIAN. AGENCY MAY PERFORM A RESUMPTION OF CARE VISIT FOLLOWING ANY HOSPITAL ADMISSION. RN/INTERVENTIONAL CARDIOLOGIST/TOOL MAINTENANCE WORKER TO MONITOR CO-MORBID CONDITIONS LISTED ON THE PLAN OF CARE AND ANY NEW CONDITIONS THAT PRESENT THEMSELVES DURING THIS EPISODE TO IDENTIFY CHANGES AND INTERVENE TO MINIMIZE COMPLICATIONS. [code = RN TO OBSERVE, ASSESS, EVALUATE, AND DEVELOP AN INDIVIDUALIZED PLAN OF CARE. AGENCY MAY ACCEPT ORDERS FROM CONSULTING PHYSICIANS . RN TO OBSERVE AND ASSESS, INTERVENTIONAL CARDIOLOGIST/TOOL MAINTENANCE WORKER TO OBSERVE FOR RISK FOR FALLS AND INSTRUCT IN FALL PREVENTION, HOME SAFETY, MEDICATION MANAGEMENT, INFECTION PREVENTION, AND NUTRITION MANAGEMENT. RN/INTERVENTIONAL CARDIOLOGIST/TOOL MAINTENANCE WORKER NURSE MAY PERFORM O2 SATURATION LEVEL ON ADMISSION AND PRN FOR EVERY VISIT FOR RN TO ASSESS/INTERVENTIONAL CARDIOLOGIST TO OBSERVE PATIENT, WITH NOTIFICATION TO THE PHYSICIAN IF SATURATION IS 90% IN THE ABSENCE OF MORE SPECIFIC PARAMETERS FROM THE PHYSICIAN. AGENCY MAY PERFORM A RESUMPTION OF CARE VISIT FOLLOWING ANY HOSPITAL ADMISSION. RN/INTERVENTIONAL CARDIOLOGIST/TOOL MAINTENANCE WORKER TO MONITOR CO-MORBID CONDITIONS LISTED ON THE PLAN OF CARE AND ANY NEW CONDITIONS THAT PRESENT THEMSELVES DURING THIS EPISODE TO IDENTIFY CHANGES AND INTERVENE TO MINIMIZE COMPLICATIONS.] Future Scheduled Test MEDICATION MANAGEMENT; RN/INTERVENTIONAL CARDIOLOGIST/TOOL MAINTENANCE WORKER TO REVIEW MEDICATIONS FOR INTERACTIONS, EFFECTIVENESS OF DRUG THERAPY, AND SIGNS/SYMPTOMS OF ADVERSE REACTIONS. MAY INSTRUCT AND REINFORCE MEDICATION TEACHING RELATED TO THE USE OF MEDICATIONS, DOSAGE, FREQUENCY, PURPOSE, SIDE EFFECTS, AND TO REPORT COMPLICATIONS. [code = MEDICATION MANAGEMENT; RN/INTERVENTIONAL CARDIOLOGIST/TOOL MAINTENANCE WORKER TO REVIEW MEDICATIONS FOR INTERACTIONS, EFFECTIVENESS OF DRUG THERAPY, AND SIGNS/SYMPTOMS OF ADVERSE REACTIONS. MAY INSTRUCT AND REINFORCE MEDICATION TEACHING RELATED TO THE USE OF MEDICATIONS, DOSAGE, FREQUENCY, PURPOSE, SIDE EFFECTS, AND TO REPORT COMPLICATIONS.] Future Scheduled Test ANTICOAGUL ATION MANAGEMENT; RN TO ASSESS AND TEACH, INTERVENTIONAL CARDIOLOGIST/TOOL MAINTENANCE WORKER TO OBSERVE/TEACH/MONITOR EFFECTIVENESS OF ANTICOAGULATION THERAPY. RN/INTERVENTIONAL CARDIOLOGIST/TOOL MAINTENANCE WORKER TO INSTRUCT ON SIGNS AND SYMPTOMS OF BLEEDING/ADVERSE REACTIONS TO REPORT TO PHYSICIAN. PATIENT IS PRESCRIBED XARELTO [code = ANTICOAGULATION MANAGEMENT; RN TO ASSESS AND TEACH, INTERVENTIONAL CARDIOLOGIST/TOOL MAINTENANCE WORKER TO OBSERVE/TEACH/MONITOR EFFECTIVENESS OF ANTICOAGULATION THERAPY. RN/INTERVENTIONAL CARDIOLOGIST/TOOL MAINTENANCE WORKER TO INSTRUCT ON SIGNS AND SYMPTOMS OF BLEEDING/ADVERSE REACTIONS TO REPORT TO PHYSICIAN. PATIENT IS PRESCRIBED XARELTO ] Future Scheduled Test RISK FOR H OSPITALIZATION; RN TO ASSESS/TEACH, TOOL MAINTENANCE WORKER/INTERVENTIONAL CARDIOLOGIST TO OBSERVE/TEACH PATIENT/CAREGIVER ON RISK FOR HOSPITALIZATION/EMERGENCY ROOM VISITS, TEACH SIGNS AND SYMPTOMS THAT PUT PATIENT AT RISK, WHEN TO NOTIFY NURSE/PHYSICIAN OF COMPLICATIONS/DECLINE, AND WHEN TO CALL 911. [code = RISK FOR HOSPITALIZATION; RN TO ASSESS/TEACH, TOOL MAINTENANCE WORKER/INTERVENTIONAL CARDIOLOGIST TO OBSERVE/TEACH PATIENT/CAREGIVER ON RISK FOR HOSPITALIZATION/EMERGENCY ROOM VISITS, TEACH SIGNS AND SYMPTOMS THAT PUT PATIENT AT RISK, WHEN TO NOTIFY NURSE/PHYSICIAN OF COMPLICATIONS/DECLINE, AND WHEN TO CALL 911.] Future Scheduled Test CARDIOVASC ULAR SYSTEM; RN TO ASSESS/TEACH, INTERVENTIONAL CARDIOLOGIST/TOOL MAINTENANCE WORKER TO OBSERVE/TEACH RELATED TO ALTERED CARDIOVASCULAR STATUS TO MINIMIZE COMPLICATIONS AND REDUCE HOSPITALIZATION. [code = CARDIOVASCULAR SYSTEM; RN TO ASSESS/TEACH, INTERVENTIONAL CARDIOLOGIST/TOOL MAINTENANCE WORKER TO OBSERVE/TEACH RELATED TO ALTERED CARDIOVASCULAR STATUS TO MINIMIZE COMPLICATIONS AND REDUCE HOSPITALIZATION.] Future Scheduled Test HYPERTENSI ON MANAGEMENT; RN TO ASSESS AND TEACH, INTERVENTIONAL CARDIOLOGIST/TOOL MAINTENANCE WORKER TO OBSERVE AND TEACH WARNING SIGNS AND SYMPTOMS TO AVOID HOSPITALIZATION. [code = HYPERTENSION MANAGEMENT; RN TO ASSESS AND TEACH, INTERVENTIONAL CARDIOLOGIST/TOOL MAINTENANCE WORKER TO OBSERVE AND TEACH WARNING SIGNS AND SYMPTOMS TO AVOID HOSPITALIZATION.] Future Scheduled Test GENITOURIN LEEROY MANAGEMENT; RN TO ASSESS AND TEACH, INTERVENTIONAL CARDIOLOGIST/TOOL MAINTENANCE WORKER TO OBSERVE AND TEACH RELATED TO ALTERED GENITOURINARY STATUS TO MINIMIZE COMPLICATIONS AND REDUCE HOSPITALIZATION. [code = GENITOURINARY MANAGEMENT; RN TO ASSESS AND TEACH, INTERVENTIONAL CARDIOLOGIST/TOOL MAINTENANCE WORKER TO OBSERVE AND TEACH RELATED TO ALTERED GENITOURINARY STATUS TO MINIMIZE COMPLICATIONS AND REDUCE HOSPITALIZATION.] Future Scheduled Test URINARY IN CONTINENCE MANAGEMENT; RN TO ASSESS AND TEACH, INTERVENTIONAL CARDIOLOGIST/LVNTO OBSERVE AND TEACH MANAGEMENT OF URINARY INCONTINENCE. TEACH/INSTRUCT ON PREVENTING INFECTION AND SKIN BREAKDOWN. RN/INTERVENTIONAL CARDIOLOGIST/TOOL MAINTENANCE WORKER MAY INSTRUCT IN BLADDER TRAINING PROGRAM INDICATED. [code = URINARY INCONTINENCE MANAGEMENT; RN TO ASSESS AND TEACH, INTERVENTIONAL CARDIOLOGIST/LVNTO OBSERVE AND TEACH MANAGEMENT OF URINARY INCONTINENCE. TEACH/INSTRUCT ON PREVENTING INFECTION AND SKIN BREAKDOWN. RN/INTERVENTIONAL CARDIOLOGIST/TOOL MAINTENANCE WORKER MAY INSTRUCT IN BLADDER TRAINING PROGRAM INDICATED.] Future Scheduled Test URINARY MO LECULAR TESTING PROTOCOL UP TO 2 PRN RN/INTERVENTIONAL CARDIOLOGIST/TOOL MAINTENANCE WORKER VISITS MAY BE PERFORMED FOR S/S OF UTI. RN TO ASSESS, INTERVENTIONAL CARDIOLOGIST/TOOL MAINTENANCE WORKER TO OBSERVE INITIATION OF UTI PROTOCOL. RN/TOOL MAINTENANCE WORKER/INTERVENTIONAL CARDIOLOGIST TO INSTRUCT PATIENT AND/OR CAREGIVER ON S/S OF UTI TO REPORT TO RN/TOOL MAINTENANCE WORKER/INTERVENTIONAL CARDIOLOGIST IF NEW OR WORSENING SYMPTOMS. DRINK PLENTY OF WATER THROUGHOUT THE DAY TO MAINTAIN HYDRATION (UNLESS CONTRAINDICATED.) URINATE WHEN THE URGE IS FELT, DO NOT WAIT. WASH GENITALS DAILY. WIPE FROM FRONT TO BACK AFTER HAVING A BOWEL MOVEMENT. RN/TOOL MAINTENANCE WORKER/INTERVENTIONAL CARDIOLOGIST TO OBTAIN MOLECULAR URINE TESTING BY OPTION 1 OR OPTION 2 (OPTION 1) RN/TOOL MAINTENANCE WORKER/INTERVENTIONAL CARDIOLOGIST TO OBTAIN U/A WITH REFLEX TO UTI PANEL (MOLECULAR) VIA CLEAN CATCH URINE AND IF UNABLE TO OBTAIN MAY PERFORM AN IN AND OUT CATH. IF PATIENT HAS INDWELLING CATHETER MAY OBTAIN FROM SAMPLING PORT. (OPTION 2) RN/TOOL MAINTENANCE WORKER/INTERVENTIONAL CARDIOLOGIST TO OBTAIN UTI PANEL (MOLECULAR) VIA SWAB COLLECTION METHOD FROM ADULT BRIEF/DIAPER OR PAD IF PATIENT IS INCONTINENT. NOTIFY PROVIDER OF RESULTS AND OBTAIN FURTHER ORDERS. [code = URINARY MOLECULAR TESTING PROTOCOL UP TO 2 PRN RN/INTERVENTIONAL CARDIOLOGIST/TOOL MAINTENANCE WORKER VISITS MAY BE PERFORMED FOR S/S OF UTI. RN TO ASSESS, INTERVENTIONAL CARDIOLOGIST/TOOL MAINTENANCE WORKER TO OBSERVE INITIATION OF UTI PROTOCOL. RN/TOOL MAINTENANCE WORKER/INTERVENTIONAL CARDIOLOGIST TO INSTRUCT PATIENT AND/OR CAREGIVER ON S/S OF UTI TO REPORT TO RN/TOOL MAINTENANCE WORKER/INTERVENTIONAL CARDIOLOGIST IF NEW OR WORSENING SYMPTOMS. DRINK PLENTY OF WATER THROUGHOUT THE DAY TO MAINTAIN HYDRATION (UNLESS CONTRAINDICATED.) URINATE WHEN THE URGE IS FELT, DO NOT WAIT. WASH GENITALS DAILY. WIPE FROM FRONT TO BACK AFTER HAVING A BOWEL MOVEMENT. RN/TOOL MAINTENANCE WORKER/INTERVENTIONAL CARDIOLOGIST TO OBTAIN MOLECULAR URINE TESTING BY OPTION 1 OR OPTION 2 (OPTION 1) RN/TOOL MAINTENANCE WORKER/INTERVENTIONAL CARDIOLOGIST TO OBTAIN U/A WITH REFLEX TO UTI PANEL (MOLECULAR) VIA CLEAN CATCH URINE AND IF UNABLE TO OBTAIN MAY PERFORM AN IN AND OUT CATH. IF PATIENT HAS INDWELLING CATHETER MAY OBTAIN FROM SAMPLING PORT. (OPTION 2) RN/TOOL MAINTENANCE WORKER/INTERVENTIONAL CARDIOLOGIST TO OBTAIN UTI PANEL (MOLECULAR) VIA SWAB COLLECTION METHOD FROM ADULT BRIEF/DIAPER OR PAD IF PATIENT IS INCONTINENT. NOTIFY PROVIDER OF RESULTS AND OBTAIN FURTHER ORDERS.] Future Scheduled Test FALL REDUC TION MANAGEMENT; RN TO ASSESS AND TEACH, INTERVENTIONAL CARDIOLOGIST/TOOL MAINTENANCE WORKER TO OBSERVE AND TEACH ON EDUCATION AND INTERVENTION TO IDENTIFY FALL RISK FACTORS SUCH MEDICATIONS THAT MAY CAUSE DIZZINESS, CHRONIC DISEASES, PSYCHOLOGICAL FACTORS, AND EMPOWER/EDUCATE PATIENT/CAREGIVER TO MINIMIZE FALL RISK. [code = FALL REDUCTION MANAGEMENT; RN TO ASSESS AND TEACH, INTERVENTIONAL CARDIOLOGIST/TOOL MAINTENANCE WORKER TO OBSERVE AND TEACH ON EDUCATION AND INTERVENTION TO IDENTIFY FALL RISK FACTORS SUCH MEDICATIONS THAT MAY CAUSE DIZZINESS, CHRONIC DISEASES, PSYCHOLOGICAL FACTORS, AND EMPOWER/EDUCATE PATIENT/CAREGIVER TO MINIMIZE FALL RISK.] Future Scheduled Test DEMENTIA M ANAGEMENT WITHOUT BEHAVIORAL DISTURBANCES; RN TO ASSESS AND TEACH, TOOL MAINTENANCE WORKER/INTERVENTIONAL CARDIOLOGIST TO OBSERVE AND TEACH AND TO PROVIDE EDUCATION ON DEMENTIA WITHOUT BEHAVIORAL DISTURBANCES. [code = DEMENTIA MANAGEMENT WITHOUT BEHAVIORAL DISTURBANCES; RN TO ASSESS AND TEACH, TOOL MAINTENANCE WORKER/INTERVENTIONAL CARDIOLOGIST TO OBSERVE AND TEACH AND TO PROVIDE EDUCATION ON DEMENTIA WITHOUT BEHAVIORAL DISTURBANCES.] Future Scheduled Test PHYSICAL T HERAPIST TO EVALUATE FOR EVALUATION AND TREATMENT [code = PHYSICAL THERAPIST TO EVALUATE FOR EVALUATION AND TREATMENT ] Future Scheduled Test OCCUPATION AL THERAPIST TO EVALUATE FOR EVALUATION AND TREATMENT [code = OCCUPATIONAL THERAPIST TO EVALUATE FOR EVALUATION AND TREATMENT ] Future Scheduled Test PAIN MANAG EMENT; RN TO ASSESS AND TEACH, TOOL MAINTENANCE WORKER/INTERVENTIONAL CARDIOLOGIST TO OBSERVE AND TEACH AND PROVIDE EDUCATION ON PAIN MANAGEMENT TECHNIQUES. [code = PAIN MANAGEMENT; RN TO ASSESS AND TEACH, TOOL MAINTENANCE WORKER/INTERVENTIONAL CARDIOLOGIST TO OBSERVE AND TEACH AND PROVIDE EDUCATION ON PAIN MANAGEMENT TECHNIQUES.] Goal Patient Goal - P ATIENT IMPROVED SAFETY MEASURES Goal Provider Goal - A PLAN OF CARE WILL BE ESTABLISHED THAT MEETS THE PATIENTS NEEDS. PATIENT WILL DEMONSTRATE OXYGEN SATURATION WITHIN NORMAL LIMITS OR PATIENTS OPTIMAL LEVEL ESTABLISHED BY THE PHYSICIAN THROUGHOUT CARE. CHANGES TO CO-MORBID CONDITIONS AND ANY NEW CONDITIONS WILL BE IDENTIFIED AND REPORTED TO THE PHYSICIAN. Goal Provider Goal - PATIENT/CAREGIVER TO VERBALIZE, AND CONSISTENTLY DEMONSTRATE EFFECTIVE, SAFE MANAGEMENT OF MEDICATION INCLUDING KNOWLEDGE OF EFFECTIVENESS, POTENTIAL SIDE EFFECTS AND DRUG REACTIONS AND WHEN TO CONTACT THE APPROPRIATE CARE PROVIDER. PATIENT/CAREGIVER WILL BE ABLE TO VERBALIZE UNDERSTANDING OF MEDICATION REGIMEN AND ACCURATELY TAKE MEDICATIONS PRESCRIBED WITHOUT ADVERSE EFFECTS BY EOE Goal Provider Goal - INEFFECTIVE ANTICOAGULATION THERAPY WILL BE IDENTIFIED AND PROMPTLY REPORTED TO THE PHYSICIAN. PATIENT / CAREGIVER WILL VERBALIZE UNDERSTANDING OF MEASURES TO MAINTAIN EFFECTIVE ANTICOAGULATION THERAPY BY EOE Goal Provider Goal - PATIENT/CAREGIVER WILL VERBALIZE UNDERSTANDING OF SIGNS AND SYMPTOMS THAT PUT THE PATIENT AT RISK FOR HOSPITALIZATION /EMERGENCY ROOM VISITS, WHEN TO NOTIFY NURSE/PHYSICIAN OF COMPLICATIONS/DECLINE AND WHEN TO CALL 911. Goal Provider Goal - PATIENT / CAREGIVER WILL VERBALIZE/DEMONSTRATE UNDERSTANDING OF MEASURES TO MANAGE ALTERED CARDIOVASCULAR STATUS BY EOE Goal Provider Goal - PATIENT / CAREGIVER WILL VERBALIZE/DEMONSTRATE AN ABILITY TO ADHERE TO SELF-MANAGEMENT OF HTN TO MINIMIZE COMPLICATIONS AND AVOID HOSPITALIZATION BY END OF EPISODE. Goal Provider Goal - PATIENT / CAREGIVER WILL VERBALIZE/DEMONSTRATE UNDERSTANDING OF MEASURES TO MANAGE ALTERED GENITOURINARY STATUS BY END OF EPISODE. Goal Provider Goal - PATIENT/CAREGIVER WILL VERBALIZE/DEMONSTRATE UNDERSTANDING OF CARE AND MANAGEMENT OF URINARY INCONTINENCE BY EOE Goal Provider Goal - PATIENT WILL DEMONSTRATE IMPROVEMENT IN S/S OF UTI TO AVOID HOSPITALIZATION. Goal Provider Goal - PATIENT/CAREGIVER ABLE TO IDENTIFY FALL RISK FACTORS AND IMPLEMENT STRATEGIES TO MINIMIZE FALL RISK. PATIENT/CAREGIVER WILL VERBALIZE/DEMONSTRATE AN ABILITY TO ADHERE TO FALL REDUCTION SELF-MANAGEMENT AND LIFE-STYLE CHANGES AT DISCHARGE. PERSONAL GOAL(S) STATED BY PATIENT/CAREGIVER WILL BE MET BY EOE Goal Provider Goal - FAMILY / CAREGIVERS WILL VERBALIZE/DEMONSTRATE DEMENTIA MANAGEMENT TECHNIQUES BY END OF EPISODE. Goal Provider Goal - Goal Provider Goal - Goal Provider Goal - PATIENT / CAREGIVER WILL VERBALIZE / DEMONSTRATE UNDERSTANDING OF PAIN CONTROL MEASURES BY EOE Encounters Start Date/Time End Date/Time Encounter Type Admission Type Attending [facility] Care Department Encounter ID Discharge Date Discharge Status Discharge Condition Discharge Reason Percent Goals Met 2024-05-01 00:00:00 2024-06-29 00:00:00 Outpatient MISA JUSTIN [facility] [id number] 45.00
--- OUTSIDE RECORDS SUMMARY | 2024-06-18 19:06 | XMS_ITS | Encounter Summary ---
Author Organization [facility] Address [address] [place] [address] Care Team Providers Care Traveler Changer Name Role Phone Wesley Em MD Primary [...] st Contact Info) Description 07/11/2024 10:30 AM FULL STACK JAVA DEVELOPER Office Visit [facility] [address] [place] [phone] Liza Morrow MD [address] [place] [phone] 07/16/2024 10:00 AM FULL STACK JAVA DEVELOPER Office Visit [facility] [address] [place] [phone] Shahriar Young MD [address] [place] [address] [place] [phone] documented as of this encounter Visit Diagnoses Not on filedocumented in this encounter Care Teams Traveler Changer Relationship Specialty Start Date End Date Wesley Em MD PCP - General Internal Medicine 09/20/12 documented as of this encounter
--- OUTSIDE RECORDS SUMMARY | 2024-06-18 19:06 | XMS_ITS | Encounter Summary ---
Author Organization [facility] Address [address] [place] [address] Care Team Providers Care Elementary Educator Name Role Phone Wesley Em MD Primary Care Provider Unavail able Encounter Details Date Type Department Care Team (Late Contact Info) Description 09/25/2020 Orders Only [facility] Medical [facility] - COVID Vax [address] [place] [address] Jaquan Burton MD [address] [phone] Need for vaccination Social History Tobacco Use [...] (Late Contact Info) Description 07/11/2024 10:30 AM PETROLOGY TEACHER Office Visit [facility] [address] [place] [phone] Liza Morrow MD [address] [place] [phone] 07/16/2024 10:00 AM PETROLOGY TEACHER Office Visit [facility] [address] [place] [phone] Shahriar Young MD [address] [place] [phone] documented as of this encounter Visit Diagnoses Diagnosis Need for vaccination Need for prophylactic vaccination and inoculation against unspecified single disease documented in this encounter Care Teams Elementary Educator Relationship Specialty Start Date End Date Wesley Em MD PCP - General Internal Medicine 09/20/12 documented as of this encounter
--- OUTSIDE RECORDS SUMMARY | 2024-06-18 19:06 | XMS_ITS | Encounter Summary ---
Author Organization [facility] Address [address] [facility] [place] [address] Care Team Providers Care Metal Door Assembler Name Role Phone Wesley Em MD Primary Care Provider Unavail able Reason for Visit * Reason Comments Coronary Artery Disease Follow-up 6 month Encounter Details Date Type Department Care Team (Late st Contact Info) Description 06/01/2018 2:30 PM BPM ARCHITECT Office Visit [facility] [address] [place] [phone] Garth Millan MD [address] [place] [phone] CAD in [place]ib[place] artery (Primary Dx); Dyslipidemia; Essential hypertension Social [...] Comments Blood Pressure 176/87 06/01/2018 2:28 PM BPM ARCHITECT Pulse 60 06/01/2018 2:28 PM BPM ARCHITECT Temperature - - Respiratory Rate 16 06/01/2018 2:28 PM BPM ARCHITECT Oxygen Saturation - - Inhaled Oxygen Concentration - - Weight 88.9 kg (196 lb) 06/01/2018 2:28 PM BPM ARCHITECT Height 172.7 cm (5' 8 ) 06/01/2018 2:28 PM BPM ARCHITECT Body Mass Index 29.8 06/01/2018 2:28 PM BPM ARCHITECT documented in this encounter Progress Notes * [...] CHOL, TRIG, HDL, LDLCALC in the last 87527 hours. ASSESSMENT/PLAN: 1. CAD: doing well post PCI. Will continue current regimen. 2. Hypertension: usually well controlled 3. Dyslipidemia: followed by Dr Em. 4. DM 5. Polycythemia Vera. 6. Follow up in 6 months. Garth Millan MD 06/01/2018 2:57 PM ARCHITECT documented in this encounter Plan of Treatment Upcoming Encounters Date Type Department Care Team (Late st Contact Info) Description 07/11/2024 10:30 AM BPM ARCHITECT Office Visit [facility] [address] [place] [phone] Liza Morrow MD [address] [place] [phone] 07/16/2024 10:00 AM BPM ARCHITECT Office Visit [facility] Ophthalmology [address] [place] [phone] Shahriar Young MD [address] [place] [address] [place] [phone] documented as of this encounter Visit Diagnoses Diagnosis CAD in kaib[place] artery- Primary Coronary atherosclerosis of kaib[place] coronary artery Dyslipidemia Other and unspecified hyperlipidemia Essential hypertension documented in this encounter Care Teams Metal Door Assembler Relationship Specialty Start Date End Date Wesley Em MD PCP - General Internal Medicine 09/20/12 documented as of this encounter
--- OUTSIDE RECORDS SUMMARY | 2024-06-18 19:06 | XMS_ITS | Encounter Summary ---
Author Organization [facility] Address [address] [facility] [address] Care Team Providers Care Master Esthetician Name Role Phone Wesley Em MD Primary Care Provider Unavail able Encounter Details Date Type Department Care Team (Latest Contact Info) Description 05/27/2024 1:30 PM NUMERICAL CONTROL MACHINE OPERATOR Testing Visit [facility] [address] [place] [phone] Keesha Bateman, Aung [address] [place] [address] [address] [place] [address] Sensorineural hearing loss (SNHL) of both ears [...] st Contact Info) Description 07/11/2024 10:30 AM NUMERICAL CONTROL MACHINE OPERATOR Office Visit [facility] [address] [place] [phone] Liza Morrow MD [address] [place] [phone] 07/16/2024 10:00 AM NUMERICAL CONTROL MACHINE OPERATOR Office Visit [facility] [address] [place] [phone] Shahriar Young MD [address] [place] [address] [place] [phone] documented as of this encounter Procedures Procedure Name Priority Date/Time Associated Diagnosis Comments AUDIOLOGY/TYMPANOME TRY ORDER Routine 05/27/2024 1:26 PM NUMERICAL CONTROL MACHINE OPERATOR documented in this encounter Results * AUDIOLOGY/TYMPANOMETRY ORDER (05/27/2024 1:26 PM NUMERICAL CONTROL MACHINE OPERATOR) Miguel Angel Valdezsosa Aung Thao - 05/27/2024 1:50 PM NUMERICAL CONTROL MACHINE OPERATOR History: [place] arrived for a hearing [...] pending interest/medical clearance. Aung Garcia. CCC-A Clinical Automatic Door Mechanic [facility]ol[facility] [address] [place] [address]. ([facility]) [place] [address] Keesha Horan [facility] [employer] documented in this encounter Visit Diagnoses Diagnosis Sensorineural hearing loss (SNHL) of both ears- Primary documented in this encounter Care Teams Master Esthetician Relationship Specialty Start Date End Date Wesley Em MD PCP - General Internal Medicine 09/20/12 documented as of this encounter
--- OUTSIDE RECORDS SUMMARY | 2024-06-18 19:06 | XMS_ITS | Encounter Summary ---
Author Organization [facility] Address [address] [facility] [place] [address] Care Team Providers Care Portfolio Assistant Name Role Phone Wesley Em MD Primary Care Provider Unavail able Reason for Visit * Reason Comments Coronary Artery Disease Follow-up 6 month Encounter Details Date Type Department Care Team (Late st Contact Info) Description 06/13/2019 2:20 PM ASSURANCE SENIOR MANAGER Office Visit [facility] Heart & Vascular Care [address] [place] [phone] Garth Millan MD [address] [place] [phone] CAD in [place] artery (Primary Dx); Essential hypertension; Dyslipidemia Social [...] Comments Blood Pressure 163/83 06/13/2019 2:25 PM ASSURANCE SENIOR MANAGER Pulse 53 06/13/2019 2:25 PM ASSURANCE SENIOR MANAGER Temperature - - Respiratory Rate 16 06/13/2019 2:25 PM ASSURANCE SENIOR MANAGER Oxygen Saturation - - Inhaled Oxygen Concentration - - Weight 91.3 kg (201 lb 3.2 oz) 06/13/2019 2:25 P M ASSURANCE SENIOR MANAGER Height 177.8 cm (5' 10 ) 06/13/2019 2:25 PM ASSURANCE SENIOR MANAGER Body Mass Index 28.87 06/13/2019 2:25 PM ASSURANCE SENIOR MANAGER documented in this encounter Progress Notes * [...] CHOL, TRIG, HDL, LDLCALC in the last 91158 hours. ASSESSMENT/PLAN: 1. CAD: doing well post PCI. Will continue current regimen. 2. Hypertension: usually well controlled 3. Dyslipidemia: followed by Dr Em. 4. DM 5. Polycythemia Vera. 6. Follow up in 6 months. Garth Millan MD 06/13/2019 2:45 PM RANCE SENIOR MANAGER documented in this encounter Plan of Treatment Upcoming Encounters Date Type Department Care Team (Late st Contact Info) Description 07/11/2024 10:30 AM ASSURANCE SENIOR MANAGER Office Visit [facility] [address] [place] [phone] Liza Morrow MD [address] [place] [phone] 07/16/2024 10:00 AM ASSURANCE SENIOR MANAGER Office Visit [facility] Op[facility] [address] [place] [phone] Shahriar Young MD [address] [place] [address] [place] [phone] documented as of this encounter Visit Diagnoses Diagnosis CAD in [place] artery- Primary Coronary atherosclerosis of [place] coronary artery Essential hypertension Dyslipidemia Other and unspecified hyperlipidemia documented in this encounter Care Teams Portfolio Assistant Relationship Specialty Start Date End Date Wesley Em MD PCP - General Internal Medicine 09/20/12 documented as of this encounter
--- OUTSIDE RECORDS SUMMARY | 2024-06-18 19:06 | XMS_ITS | Encounter Summary ---
Author Organization [facility] Address [address] [facility] [place] [address] Care Team Providers Care Warehouse Inventory Clerk Name Role Phone Wesley Em MD Primary Care Provider Unavail able Reason for Visit * Reason Comments Establish Care Hearing Loss Encounter Details Date Type Department Care Team (Latest Contact Info) Description 05/27/2024 2:00 PM DISINTEGRATOR OPERATOR Office Visit [facility] [address] [place] [address], [place] [phone] Rick Roque MD [address] [place] [address] [place] [address] Sensorineural hearing loss (SNHL) of both ears [...] Comments Blood Pressure 125/71 05/27/2024 2:11 PM DISINTEGRATOR OPERATOR Pulse 49 05/27/2024 2:11 PM DISINTEGRATOR OPERATOR Temperature - - Respiratory Rate - - Oxygen Saturation 94% 05/27/2024 2:11 PM DISINTEGRATOR OPERATOR Inhaled Oxygen Concentration - - Weight 83.5 kg (184 lb) 05/27/2024 2:11 PM DISINTEGRATOR OPERATOR Height 172.7 cm (5' 8 ) 05/27/2024 2:11 PM DISINTEGRATOR OPERATOR Body Mass Index 27.98 05/27/2024 2:11 PM DISINTEGRATOR OPERATOR documented in this encounter Patient Instructions * Patient Instructions* Joy Kenney - 05/27/2024 2:12 PM DISINTEGRATOR OPERATOR Thank you for visiting [facility] - [facility] Neck Surgery. We [...] an appointment, please call our office at [phone] Monday through Monday from 8:00 am to4:30 pm. You can also request a routine appointment through your [employer] account. Prescription Refills Contact your pharmacy to [...] the medical exchange at and ask the percolator operator to page the ENT physician consultant dietitian. *Caller ID blocking service will need to be turned off for your call to be returned. We also specialize in Hearing Aids, Allergy testing, swallowing disorders, voice problems, cancer diagnosis, and so much more. Visit our website at [email or web address] for information about our practice and an interactive health encyclopedia. NTEGRATOR OPERATOR documented in this encounter Progress Notes * Rick Roque MD - 05/27/2024 2:00 PM CST History of Present Illness: 78 year old with a h/o AU SNHL and multiple complex medical problems Here today with his son. Travels in a wheelchair. Has noticed increased difficulty hearing and understanding over time. No ear infections or drainage from the ear. 07/12/[facility] ANGIO HEAD AND NECK Order: [id number] Impression 1. No acute intracranial findings. 2. [...] Medical History Past Medical History: Diagnosis Date Mayo esophagus [...] and Skull Base Surgery Department of Otolaryngology NTEGRATOR OPERATOR documented in this encounter Plan of Treatment Upcoming Encounters Date Type Department Care Team (Late st Contact Info) Description 07/11/2024 10:30 AM DISINTEGRATOR OPERATOR Office Visit [facility] [address] [place] [phone] Liza Morrow MD [address] [place] [phone] 07/16/2024 10:00 AM DISINTEGRATOR OPERATOR Office Visit [facility] [address] [place] [phone] Shahriar Young MD [address] [place] [address] [place] [phone] documented as of this encounter Visit Diagnoses Diagnosis Sensorineural hearing loss (SNHL) of both ears- Primary documented in this encounter Care Teams Warehouse Inventory Clerk Relationship Specialty Start Date End Date Wesley Em MD PCP - General Internal Medicine 09/20/12 documented as of this encounter
--- OUTSIDE RECORDS SUMMARY | 2024-06-18 19:06 | XMS_ITS | Patient Health Summary ---
Author Organization [facility] Address [address] [place] [address] Care Team Providers Care Contract Serviceman Name Role Phone Wesley Em MD Primary Care Provider Unavail able Note from [facility],non-owned Affiliates and Associated Physician Practices is amultiple site organization consisting of ambulatory clinics and hospital sitesin [place], [place], [place] and [place]. This disclosure is being madepursuant to the Care Everywhere program and may not contain all information available regarding this patient. Last updated 18.[facility] Allergies * Ciprofloxacin Medications * Be aware [...] Comments Blood Pressure 125/71 05/27/2024 2:11 PM TUBE COREMAKER Pulse 49 05/27/2024 2:11 PM TUBE COREMAKER Temperature 36.4 ??C (97.6 ??F) 09/21/2012 11:22 AM C DT Respiratory Rate 16 06/13/2019 2:25 PM TUBE COREMAKER Oxygen Saturation 94% 05/27/2024 2:11 PM TUBE COREMAKER Inhaled Oxygen Concentration 98% 09/20/2012 1 :45 PM CDT Weight 83.5 kg (184 lb) 05/27/2024 2:11 PM TUBE COREMAKER Height 172.7 cm (5' 8 ) 05/27/2024 2:11 PM TUBE COREMAKER Body Mass Index 27.98 05/27/2024 2:11 PM TUBE COREMAKER Procedures * AUDIOLOGY/TYMPANOMETRY ORDER(Performed 05/27/2024) * HEMOGLOBIN A1C - POINT OF CARE (AMB) [facility](Performed 04/18/2024) Performed for Hyperglycemia * NM MYOCARD PERF REST STRESS(Performed 11/23/2015) Performed for Atherosclerosis of huslia coronary artery of huslia heart with angina pectoris (HCC) * STRESS TEST LEXISCAN (NUCLEAR)(Performed 11/23/2015) Performed for Atherosclerosis of huslia coronary artery of huslia heart, angina presence unspecified * LAB RESULTS [...] Results * AUDIOLOGY/TYMPANOMETRY ORDER (05/27/2024 1:26 PM TUBE COREMAKER) Narrative Keesha Bateman, AuD - 05/27/2024 1:50 PM TUBE COREMAKER History: Villa Alston arrived for a hearing [...] 4) Amplification pending interest/medical clearance. Aung Garcia. [facility]-A Clinical Chief Pharmacist [facility]-Department of Otolaryngology/Audiology [facility] [address] [place] [address]. (Garden Level) [place] [address] Keesha Bhavana Horan [facility]UD[facility]OLOGY SERVICES O RDERABLES * HEMOGLOBIN A1C - POINT OF CARE (AMB) [facility] (04/18/2024 9:54 AM CDT) Hemoglobin A1c POCT 6.3 % [address] Blood BLOOD SPECIMEN / Unknown 04/18/2024 9:54 AM CDT Liza Morrow MD LAB - POINT OF CARE ORDERABLES Performing Organization Address City/State/[facility] Co de Phone Number [address], [place] [address], [facility] [phone] * NM MYOCARD PERFUSION SPECT STRESS AND [...] at the posterior wall. Garth Masters MD CO ORDERABLES * STRESS TEST LEXISCAN (NUCLEAR) (11/23/2015 10:56 AM CDT) Pathologist [facility] Stress Test Summary For full formatted report, [...] By: ? Overread By: GARTH MASTERS MD [facility] STRESS 11/23/2015 10:5 6 AM [...] - 106 mg/dL 09/21/2012 12:15 PM CDT [facility] Blood specimen (specimen) BLOOD SPECIMEN / Unknown 09/21/2012 12:02 PM CDT 09/21/2012 12:15 PM CDT Garth Masters MD LAB - POINT OF CARE ORDERABLES [facility] [address] [place] [address] * (ABNORMAL) CBC W AUTO DIFFERENTIAL (09/21/2012 5:20 AM CDT) Pathologist [facility] WBC 6.6 4.4 - 10.7 x10^9/L 09/21/2012 5:55 AM CDT [facility] RBC 3.91 3.80 - 5.40 x10^12/L 09/21/2012 5:55 AM CDT [facility] Hemoglobin 13.1 12.0 - 17.6 g/dL 09/21/2012 5:55 AM CDT [facility] Hematocrit 35.7 35.2 - 51.7 % 09/21/2012 5:55 AM CDT [facility] MCV 91.3 80.7 - 98.3 fl 09/21/2012 5:55 AM CDT [facility] MCH 33.5 26.7 - 34.0 pg 09/21/2012 5:55 AM CDT [facility] MCHC 36.7(H) 30.8 - 35.9 gm/dL 09/21/2012 5:55 AM CDT [facility] Platelet Count 220 153 - 416 x10^9/L 09/21/2012 5:55 AM CDT [facility] RDW-CV 12.4 12.1 - 14.9 % 09/21/2012 5:55 AM CDT [facility] Neutrophils % 63 44 - 73 % 09/21/2012 5:55 AM CDT [facility] Lymphocytes % 20 20 - 43 % 09/21/2012 5:55 AM CDT [facility] Monocytes % 9 5 - 13 % 09/21/2012 5:55 AM CDT [facility] Eosinophils % 6 0 - 6 % 09/21/2012 5:55 AM CDT [facility] Basophils % 2 0 - 2 % 09/21/2012 5:55 AM CDT [facility] Immature Granulocytes 0.3 0 - 1 % 09/21/2012 5:55 AM CDT [facility] Neutrophil Absolute 4.15 x10^9/L 09/21/2012 5:55 AM CDT [facility] Lymphocytes Absolute 1.31 1.07 - 3.94 x10^9/L 09/21/2012 5:55 AM CDT [facility] Monocytes Absolute 0.62 0.26 - 1.07 x10^9/L 09/21/2012 5:55 AM CDT [facility] Eosinophils Absolute 0.40 0 - 0.47 x10^9/L 09/21/2012 5:55 AM CDT [facility] Basophils Absolute 0.13(H) 0 - 0.08 x10^9/L 09/21/2012 5:55 AM CDT [facility] Immature Granulocytes Absolute 0.02 0.00 - 0.06 x10^9/L 09/21/2012 5:55 AM CDT [facility] nRBC Auto 0 09/21/2012 5:55 AM CDT [facility] Blood specimen (specimen) BLOOD SPECIMEN / Unknown 09/21/2012 5:20 AM CDT 09/21/2012 5:30 AM CDT Garth Masters MD LAB - HEMATOLOGY ORD ERABLES [facility] [address] [place] [address] * (ABNORMAL) BASIC METABOLIC PANEL (CALCIUM TOTAL) (09/21/2012 5:20 AM CDT) Glucose 154(H) 74 - 106 mg/dL 09/21/2012 5:51 AM CDT [facility] Sodium 141 136 - 145 mmol/L 09/21/2012 5:51 AM CDT [facility] Potassium 2.7(L) 3.5 - 5.1 mmol/L 09/21/2012 5:51 AM CDT [facility] Chloride 101 98 - 107 mmol/L 09/21/2012 5:51 AM CDT [facility] CO2 28 22 - 31 mmol/L 09/21/2012 5:51 AM CDT [facility] Calcium 9.2 8.5 - 10.1 mg/dL 09/21/2012 5:51 AM CDT [facility] Anion Gap 12 5 - 15 mmol/L 09/21/2012 5:51 AM CDT [facility] BUN 16 7 - 21 mg/dL 09/21/2012 5:51 AM CDT [facility] Creatinine 0.77 0.50 - 1.30 mg/dL 09/21/2012 5:51 AM CDT [facility] eGFR by MDRD >60 >60 ml/min/1.7 3m2 09/21/2012 5:51 AM CDT [facility] eGFR by MDRD >60 >60 ml/min/1.7 3m2 09/21/2012 5:51 AM CDT [facility] Blood specimen (specimen) BLOOD SPECIMEN / Unknown 09/21/2012 5:20 AM CDT 09/21/2012 5:30 AM CDT Garth Masters MD LAB - CHEMISTRY [facility] Organization Address City/State/ZIP Co de Phone Number [facility] [address] [place] [phone] * CARDIAC CATH CONSULT (09/20/2012 12:00 PM CDT) 09/20/2012 12:0 0 PM CDT Narrative Transcriptions Garth Masters MD - 09/20/2012 6:11 PM CDT [facility] CARDIAC CATHETERIZATION PATIENT: VILLA ALSTON MR#: [id number] ADMIT DATE: 09/20/2012 CSN: [id number] PROCEDURE DATE: 09/20/2012 :1945 PHYSICIAN: Garth Masters MD [facility]: [facility] REFERRING PHYSICIAN: GARTH MASTERS INDICATION: The patient is a very pleasant 66-year-old gentleman withhistory of coronary artery disease, a recent markedly abnormal stress test inthe setting of dyspnea and angina. Coronary angiography in [place], [place] weeks ago revealed severe 2-vessel coronary [...] obtained via right femoral artery using a7- [place] sheath advanced over the wire without difficulty after localanesthesia was applied using 1% lidocaine. The right coronary artery was initially cannulated using a 7-[place] AL-0.75 guide catheter, which was replacedwith a 7-[place] FR4 guide catheter for better guide support. [...] arterypuncture site hemostasis was achieved using an 8-[place] Angio-Seal device without complications. CONCLUSION: 1. Successful percutaneous coronary intervention, rotationalatherectomy, and implantation of a 3.0 x 26 mm Resolute drug-eluting stent in the proximal right coronary artery. 2. Successful percutaneous vascular access closure. PLAN: The patient will be admitted to telemetry and will receive aspirinand Plavix daily. Beta johanne, lipid-lowering and antihypertensive therapywill be continued. GARTH MASTERS MD ECA/MODL #: [id number] MEDICAL/SURGICAL CARDIAC CATHETERIZATION - DP Garth Masters MD ECHO ORDERABLES [facility] Care Teams Contract Serviceman Relationship Specialty Start Date End Date Wesley Em MD PCP - General Internal Medicine 09/20/12
--- OUTSIDE RECORDS SUMMARY | 2024-06-18 19:06 | XMS_ITS | Encounter Summary ---
Author Organization [facility] Address [address] [address] Care Team Providers Care Steam Service Inspector Name Role Phone Wesley Em MD Primary Care Provider Unavail able Reason for Referral * Evaluate & Treat (Routine) - Open Specialty Diagnoses / Procedures Referred By Jomar villela Referred To Contact Occupational Therapy Diagnoses Parkinsonian features Liza Morrow MD [address] [place] [address] [facility] Ot [address] [place] [address] Referral ID Status Reason Start Date Expiration Date V isits Requested Visits Authorized [id number] Open Specialty Services Required 04/18/2024 04/18/2025 1 1 * Evaluate & Treat (Routine) - Closed Specialty Diagnoses / Procedures Referred By Jomar t Referred To Contact ENT-Otolaryngology Diagnoses Hearing loss, unspecified hearing loss type, unspecified laterality Liza Morrow MD [address] [place] [address] [facility] Gl [address] [place] [address] Referral ID Status Reason Start Date Expiration Date V isits Requested Visits Authorized [id number] Closed Specialty Services Required 04/18/2024 04/18/2025 1 1 * Evaluate & Treat (Routine) - Closed Specialty Diagnoses / Procedures Referred By Jomar t Referred To Contact Ophthalmology Diagnoses Blurry vision Liza Morrow MD [address] [place] [address] [facility] Gl [address] [place] [phone] Referral ID Status Reason Start Date Expiration Date V isits Requested Visits Authorized [id number] Closed Specialty Services Required 04/18/2024 04/18/2025 1 1 Encounter Details Date Type Department Care Team (Late st Contact Info) Description 04/18/2024 8:00 AM CDT Office Visit [facility] - Geriatrics [address] [place] [phone] Liza Morrow MD [address] [place] [phone] Blurry vision (Primary Dx); Hearing loss, [...] Body Mass Index 27.12 06/13/2019 2:25 PM [facility] documented in this encounter H&P Notes * Liza Morrow MD - 04/18/2024 8:38 AM CDT DIVISION OF GERIATRIC MEDICINE DEPARTMENT OF INTERNAL MEDICINE [facility] Patient Name: Villa Zuniga Date: April 18, 2024 Presenting Complaints: Villa Zuniga is a 78 year old male with past medical history as listed below who presents today to establish care. Patient has a hx of polycythemia vera, gets therapeutic phlebotomies every 2 months at [facility]. Follows with [facility] Neurology for PD. Sustained a fall ~1 [...] Resource Strain: Low Risk (09/28/2022) [facility]ceived from [facility] Overall Financial Resource Strain (CARDIA) Difficulty of Paying Living Expenses: Not very hard Food Insecurity: Not on file Transportation Needs: No Transportation Needs (09/28/2022) Received from 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 Lives with [...] for ADLs and iADLs. - Established with [facility] Neurology. Per notes, suspect Lewy body dementia [...] communicating with health professionals. Liza Morrow MD, School Child Care Attendant of Geriatric Medicine [facility] documented in this encounter Plan of Treatment Upcoming Encounters Date Type Department Care Team (Late st Contact Info) Description 07/11/2024 10:30 AM [facility] Office Visit [facility] - Geriatrics [address] [place] [phone] Liza Morrow MD [address] [place] [phone] 07/16/2024 10:00 AM [facility] Office Visit [facility] - Ophthalmology [address] [place] [phone] Shahriar Young MD [address] [place] [address] [place] [address] Scheduled Referrals Name Type Priority Associated Diagnoses Order Schedule Ref to Ophthalmology - [facility] Outpatient Referral Routine Blurry vision 1 Occurrences starting 04/18/2024 until 04/18/2025 Ref to Audiology - [facility] Outpatient Referral Routine Hearing loss, unspecified hearing loss type, unspecified laterality 1 Occurrences starting 04/18/2024 until 04/18/2025 Ref to Occupational Therapy - [facility] OT Outpatient Referral Routine Parkinsonian features 1 Occurrences starting 04/18/2024 until 04/18/2025 documented as of this encounter Procedures Procedure Name Priority Date/Time Associated Diagnosis Comments HEMOGLOBIN A1C - POINT OF CARE (AMB) [facility] Routine 04/18/2024 9:54 AM CDT Hyperglycemia documented in this encounter Results * HEMOGLOBIN A1C - POINT OF CARE (AMB) [facility] (04/18/2024 9:54 AM CDT) Hemoglobin A1c POCT 6.3 % [address] Blood BLOOD SPECIMEN / Unknown 04/18/2024 9:54 AM CDT Liza Morrow MD LAB - POINT OF CARE ORDERABLES Performing Organization Address City/State/[facility] Co de Phone Number [place] [phone] [facility] [place] [address], [facility] [phone] documented in this encounter Visit Diagnoses Diagnosis Blurry vision- Primary Other specified visual disturbances Hearing loss, unspecified hearing loss type, unspecified laterality Pneumococcal vaccine administered Hyperglycemia Other abnormal glucose Parkinsonian features Abnormal involuntary movements Moderate dementia with other behavioral disturbance, unspecified dementia type (HCC) documented in this encounter Care Teams Steam Service Inspector Relationship Specialty Start Date End Date Wesley Em MD PCP - General Internal Medicine 09/20/12 documented as of this encounter
--- OUTSIDE RECORDS SUMMARY | 2024-06-18 19:06 | XMS_ITS | Encounter Summary ---
Author Organization [facility] Address [address] [place] [address] Care Team Providers Care Featheredge Machine Operator Name Role Phone Wesley Em MD Primary Care Provider Unavail able Reason for Visit * Reason Comments Coronary Artery Disease Follow-up 6 month Encounter Details Date Type Department Care Team (Late st Contact Info) Description 11/28/2017 1:30 PM CDT Office Visit [facility] [employer] [facility] [address] [address] [facility] [address] [place] [address] [place] [address] [facility] [address] [place] [address] CAD in [place] artery (Primary Dx); Essential hypertension; Dyslipidemia; Stented [...] CHOL, TRIG, HDL, LDLCALC in the last 23846 hours. ASSESSMENT/PLAN: 1. CAD: doing well post PCI. Will continue current regimen. 2. Hypertension: usually well controlled 3. Dyslipidemia: followed by Dr Em. 4. DM 5. Polycythemia Vera. 6. Follow up in 6 months. Garth Millan MD 11/28/2017 1:32 PM documented in this encounter Plan of Treatment Upcoming Encounters Date Type Department Care Team (Late st Contact Info) Description 07/11/2024 10:30 AM COMPUTER NUMERICAL CONTROL PROGRAMMER Office Visit [facility] - Geriatrics [address] [place] [phone] Liza Morrow MD [address] [place] [phone] 07/16/2024 10:00 AM COMPUTER NUMERICAL CONTROL PROGRAMMER Office Visit [facility] - Ophthalmology [address] [place] [phone] Shahriar Young MD [address] [place] [address] [place] [phone] documented as of this encounter Visit Diagnoses Diagnosis CAD in [place] artery- Primary Coronary atherosclerosis of [place] coronary artery Essential hypertension Dyslipidemia Other and unspecified hyperlipidemia Stented coronary artery Postsurgical percutaneous transluminal coronary angioplasty status documented in this encounter Care Teams Featheredge Machine Operator Relationship Specialty Start Date End Date Wesley Em MD PCP - General Internal Medicine 09/20/12 documented as of this encounter
--- OUTSIDE RECORDS SUMMARY | 2024-06-18 19:06 | XMS_ITS | Encounter Summary ---
Author Organization [facility] Address [address] [place] [address] Care Team Providers Care Surgery Teacher Name Role Phone Wesley Em MD Primary Care Provider Unavail able Reason for Visit * Reason Comments Coronary Artery Disease Follow-up 6 month Encounter Details Date Type Department Care Team (Late st Contact Info) Description 11/30/2018 2:10 PM CDT Office Visit [facility] [address] [place] [address] Garth Millan MD [address] [place] [phone] CAD in [place] artery (Primary Dx); Dyslipidemia; Essential hypertension Social [...] CHOL, TRIG, HDL, LDLCALC in the last 17513 hours. ASSESSMENT/PLAN: 1. CAD: doing well post PCI. Will continue current regimen. 2. Hypertension: usually well controlled 3. Dyslipidemia: followed by Dr Em. 4. DM 5. Polycythemia Vera. 6. Follow up in 6 months. Garth Millan MD 11/30/2018 2:53 PM documented in this encounter Plan of Treatment Upcoming Encounters Date Type Department Care Team (Late st Contact Info) Description 07/11/2024 10:30 AM DINKER Office Visit [facility] - Geriatrics [address] [place] [phone] Liza Morrow MD [address] [place] [phone] 07/16/2024 10:00 AM DINKER Office Visit [facility] - Ophthalmology [address] [place] [phone] Shahriar Young MD [address] [place] [address] [place] [address] documented as of this encounter Visit Diagnoses Diagnosis CAD in [place] artery- Primary Coronary atherosclerosis of [place] coronary artery Dyslipidemia Other and unspecified hyperlipidemia Essential hypertension documented in this encounter Care Teams Surgery Teacher Relationship Specialty Start Date End Date Wesley Em MD PCP - General Internal Medicine 09/20/12 documented as of this encounter
--- OUTSIDE RECORDS SUMMARY | 2024-06-18 19:06 | XMS_ITS | Encounter Summary ---
Author Organization [facility] Address [address] [place] [address] Care Team Providers Care Stretcher And Drier Name Role Phone Wesley Em MD Primary [...] st Contact Info) Description 07/11/2024 10:30 AM EVENING ANCHOR Office Visit [facility] - Geriatrics [address] [place] [phone] Liza Morrow MD [address] [place] [phone] 07/16/2024 10:00 AM EVENING ANCHOR Office Visit [facility] - Ophthalmology [address] [place] [phone] Shahriar Young MD [address] [place] [address] DE[place] [phone] documented as of this encounter Visit Diagnoses Not on filedocumented in this encounter Care Teams Stretcher And Drier Relationship Specialty Start Date End Date Wesley Em MD PCP - General Internal Medicine 09/20/12 documented as of this encounter
--- OUTSIDE RECORDS SUMMARY | 2024-06-18 19:06 | XMS_ITS | Referral Summary ---
Author Organization [facility] Address [address] [facility] [place] [address] Care Team Providers Care Informatics Physician Liaison Name Role Phone Wesley Em MD Primary Care Provider Unavail able Source Comments [facility],non-owned Affiliates and Associated Physician Practices is amultiple site organization consisting of ambulatory clinics and hospital sitesin [place], [place], [place] and [place]. This disclosure is being madepursuant to the Care Everywhere program and may not contain all information available regarding this patient. Last updated 18.[facility] Gabstr Encounters Date Type Department Care Team Description 06/13/2024 Telephone [facility] - Centralized Scheduling [facility] [place] [phone] Shahriar Young MD Reschedule Appointment (06/13-Left message of Hector's 06/13 cancellation-dept will call back to reschedule per [id number]) 05/27/2024 Travel 05/27/2024 2:00 PM POULTRY PICKING MACHINE TENDER Office Visit [facility] - ENT [address] [place] [phone] Rick Roque MD Sensorineural hearing loss (SNHL) of both ears (Primary Dx) 05/27/2024 1:30 PM POULTRY PICKING MACHINE TENDER Testing Visit [facility] - ENT [address] [place] [phone] Keesha Bateman AuD Sensorineural hearing loss (SNHL) of both ears 04/30/2024 Orders Only [facility] - Geriatrics [address] [place] [address] Liza Morrow MD History of CVA (cerebrovascular accident) ; Parkinsonian features; Moderate dementia with other behavioral disturbance, unspecified dementia type (HCC) 04/22/2024 Travel 04/18/2024 Travel 04/18/2024 8:00 AM CDT Office Visit [facility] - Geriatrics [address] [facility] [place] [address] Liza Morrow MD Blurry vision (Primary Dx); [...] Comments Blood Pressure 125/71 05/27/2024 2:11 PM POULTRY PICKING MACHINE TENDER Pulse 49 05/27/2024 2:11 PM POULTRY PICKING MACHINE TENDER Temperature 36.4 ??C (97.6 ??F) 09/21/2012 11:22 AM C DT Respiratory Rate 16 06/13/2019 2:25 PM POULTRY PICKING MACHINE TENDER Oxygen Saturation 94% 05/27/2024 2:11 PM POULTRY PICKING MACHINE TENDER Inhaled Oxygen Concentration 98% 09/20/2012 1 :45 PM CDT Weight 83.5 kg (184 lb) 05/27/2024 2:11 PM POULTRY PICKING MACHINE TENDER Height 172.7 cm (5' 8 ) 05/27/2024 2:11 PM POULTRY PICKING MACHINE TENDER Body Mass Index 27.98 05/27/2024 2:11 PM POULTRY PICKING MACHINE TENDER Plan of Treatment Upcoming Encounters Date Type Department Care Team (Late st Contact Info) Description 07/11/2024 10:30 AM POULTRY PICKING MACHINE TENDER Office Visit [facility] - Geriatrics [address] [place] [phone] Liza Morrow MD [address] [place] [phone] 07/16/2024 10:00 AM POULTRY PICKING MACHINE TENDER Office Visit [facility] - Ophthalmology [address] [place] [phone] Shahriar Young MD [address] [place] [address] [place] [address] Procedures Procedure Name Priority Date/Time Associated Diagnosis Comments AUDIOLOGY/TYMPANOMET RY ORDER Routine 05/27/2024 1:26 PM POULTRY PICKING MACHINE TENDER HEMOGLOBIN A1C - POINT OF CARE (AMB) [facility] Routine 04/18/2024 9:54 AM CDT Hyperglycemia from Last 3 Months Results * AUDIOLOGY/TYMPANOMETRY ORDER (05/27/2024 1:26 PM POULTRY PICKING MACHINE TENDER) Keesha Ovalle Aung - 05/27/2024 1:50 PM POULTRY PICKING MACHINE TENDER History: Villa Zuniga arrived for a hearing [...] pending interest/medical clearance. Aung Garcia. CCC-A Clinical Telephoner [facility]-Department of Otolaryngology/[facility] [address] [place] [address]. ([facility] [place] [address] Keesha Horan AUDIOLOGY SERVICES O RDERABLES * HEMOGLOBIN A1C - POINT OF CARE (AMB) [facility] (04/18/2024 9:54 AM CDT) Hemoglobin A1c POCT 6.3 % SANJAY DUMONT KISHORE Blood BLOOD SPECIMEN / Unknown 04/18/2024 9:54 AM CDT Liza Morrow MD LAB - POINT OF CARE ORDERABLES SANJAY Huber [facility] [address] [facility] [place] [address], [facility] [phone] from Last 3 Months Advance Directives Documents on File Type Date Recorded Patient Lumber Material Handler Expl anation Adv Directive/Living Will/POA 05/08/2024 1:13 PM DNR PRACTITIONER ORD ERS 04/30/24 Adv Directive/Living Will/POA 09/22/2012 9:33 AM * FULL RESUSCITATION (Latest Code Status on File) Date Activated Date Inactivated Comments 09/20/2012 5:05 PM 09/21/2012 3:57 PM Care Teams Informatics Physician Liaison Relationship Specialty Start Date End Date Wesley Em MD PCP - General Internal Medicine 09/20/12
--- OUTSIDE RECORDS SUMMARY | 2024-06-18 19:06 | XMS_ITS | Encounter Summary ---
Author Organization [facility] Address [address] [place] [address] Care Team Providers Care Microsoft Office Instructor Name Role Phone Wesley Em MD [...] st Contact Info) Description 07/11/2024 10:30 AM STAYING MACHINE OPERATOR Office Visit [facility] - Geriatrics [address] [place] [phone] Liza Morrow MD [address] [place] [phone] 07/16/2024 10:00 AM STAYING MACHINE OPERATOR Office Visit [facility] - Ophthalmology [address] [place] [phone] Shahriar Young MD [address] [place] [address] [place] [phone] documented as of this encounter Visit Diagnoses Not on filedocumented in this encounter Care Teams Microsoft Office Instructor Relationship Specialty Start Date End Date Wesley Em MD PCP - General Internal Medicine 09/20/12 documented as of this encounter
--- OUTSIDE RECORDS SUMMARY | 2024-06-18 19:06 | XMS_ITS | Clinical Summary ---
Author Organization [facility] Address [address] [place] [address] Care Team Providers Care A P Mechanic Name Role Phone Wesley Em MD Primary Care Provider Unavail able Source Comments [facility],non-owned Affiliates and Associated Physician Practices is amultiple site organization consisting of ambulatory clinics and hospital sitesin [place], [place], [place] and [place]. This disclosure is being madepursuant to the Care Everywhere program and may not contain all information available regarding this patient. Last updated 18.[facility] Allergies Active Allergy Reactions Criticality Noted Date [...] [facility] - Centralized Scheduling [address] [place] [phone] Shahriar Young MD Reschedule Appointment (06/13-Left message of Hector's 06/13 cancellation-dept will call back to reschedule per [id number]) 05/27/2024 2:00 PM CRIPPLE CUTTER [facility] [address] [place] [phone] Rick Roque MD Sensorineural hearing loss (SNHL) of both ears (Primary Dx) 05/27/2024 1:30 PM CRIPPLE CUTTER Testing Visit [facility] - ENT [address] [place] [phone] Keesha Bateman AuD Sensorineural hearing loss (SNHL) of both ears 05/27/2024 Travel 04/30/[address] [facility] [address] [place] [phone] Liza Morrow MD History of CVA (cerebrovascular accident) ; Parkinsonian features; Moderate dementia with other behavioral disturbance, unspecified dementia type (HCC) 04/22/2024 Travel 04/18/2024 8:00 AM CDT Office [facility] [address] [place] [phone] Liza Morrow MD Blurry vision (Primary Dx); [...] Comments Blood Pressure 125/71 05/27/2024 2:11 PM CRIPPLE CUTTER Pulse 49 05/27/2024 2:11 PM CRIPPLE CUTTER Temperature 36.4 ??C (97.6 ??F) 09/21/2012 11:22 AM C DT Respiratory Rate 16 06/13/2019 2:25 PM CRIPPLE CUTTER Oxygen Saturation 94% 05/27/2024 2:11 PM CRIPPLE CUTTER Inhaled Oxygen Concentration 98% 09/20/2012 1 :45 PM CDT Weight 83.5 kg (184 lb) 05/27/2024 2:11 PM CRIPPLE CUTTER Height 172.7 cm (5' 8 ) 05/27/2024 2:11 PM CRIPPLE CUTTER Body Mass Index 27.98 05/27/2024 2:11 PM CRIPPLE CUTTER Plan of Treatment Upcoming Encounters Date Type Department Care Team (Late st Contact Info) Description 07/11/2024 10:30 AM CRIPPLE CUTTER Office Visit [facility] - Geriatrics [address] [place] [phone] Liza Morrow MD [address] [place] [phone] 07/16/2024 10:00 AM CRIPPLE CUTTER Office Visit [facility] - Ophthalmology [address] [place] [phone] Shahriar Young MD [address] [place] [address] [place] [address] Health Maintenance Due Date Last Done Comments [...] AUDIOLOGY/TYMPANOMET RY ORDER Routine 05/27/2024 1:26 PM CRIPPLE CUTTER HEMOGLOBIN A1C - POINT OF CARE (AMB) [facility] Routine 04/18/2024 9:54 AM CDT Hyperglycemia from Last 3 Months Results * AUDIOLOGY/TYMPANOMETRY ORDER (05/27/2024 1:26 PM CRIPPLE CUTTER) Narrative Keesha BatemanAung - 05/27/2024 1:50 PM CRIPPLE CUTTER History: Villa Zuniga arrived for a hearing [...] noise. 4) Amplification pending interest/medical clearance. Aung Garcai. CCC-A Clinical Survival Specialist [facility]-Department of Otolaryngology/[facility]iology [facility] [address] [place] [address]. ([place]) [place] [address] Keesha Horan AUDIOLOGY SERVICES O RDERABLES * HEMOGLOBIN A1C - POINT OF CARE (AMB) [facility] (04/18/2024 9:54 AM CDT) Hemoglobin A1c POCT 6.3 % [address] Blood BLOOD SPECIMEN / Unknown 04/18/2024 9:54 AM CDT Liza Morrow MD LAB - POINT OF CARE ORDERABLES [address], [facility] [place] [address], [facility] [phone] from Last 3 Months Advance Directives Documents on File Type Date Recorded Patient Stove Tender Expl anation Adv Directive/Living Will/POA 05/08/2024 1:13 PM DNR PRACTITIONER ORD ERS 04/30/24 Adv Directive/Living Will/POA 09/22/2012 9:33 AM * FULL RESUSCITATION (Latest Code Status on File) Date Activated Date Inactivated Comments 09/20/2012 5:05 PM 09/21/2012 3:57 PM Care Teams A P Mechanic Relationship Specialty Start Date End Date Wesley Em MD PCP - General Internal Medicine 09/20/12
--- OUTSIDE RECORDS SUMMARY | 2024-06-18 19:06 | XMS_ITS | Encounter Summary ---
Author Organization [facility] Address [address] [facility] [place] [address] Care Team Providers Care Actuarial Intern Name Role Phone Wesley Em MD Primary Care Provider Unavail able Reason for Visit * Reason Onset Date Comments Reschedule Appointment 06/13/202406/13-Lef t message of Hector's 06/13 cancellation-dept will call back to reschedule per [id number] Encounter Details Date Type Department Care Team (Late st Contact Info) Description 06/13/2024 Telephone [facility] - Centralized Scheduling [address] [place] [phone] Shahriar Young MD [address] [facility] [address] [place] [phone] Reschedule Appointment (06/13-Left message of Hector's 06/13 cancellation-dept will call back to reschedule per [facility]) Social History Tobacco Use Types [...] My name is Adrianna, I am a [facility] Health Mixer Operator Vacuum Pan Salt this message is regarding your appointment that was scheduled for 06/13. Dr. Young will not be available for that appointment. Please contact us at [phone] to be rescheduled. [facility] Mixer Operator Vacuum Pan Salt [facility] ATIONS SPECIALIST documented in this encounter Plan of Treatment Upcoming Encounters Date Type Department Care Team (Late st Contact Info) Description 07/11/2024 10:30 AM OPERATIONS SPECIALIST Office Visit [facility] - Geriatrics [address] [place] [phone] Liza Morrow MD [address] [place] [phone] 07/16/2024 10:00 AM OPERATIONS SPECIALIST Office Visit [facility] - Ophthalmology [address] [place] [phone] Shahriar Young MD [address] [place] [address] [place] [phone] documented as of this encounter Visit Diagnoses Not on filedocumented in this encounter Care Teams Actuarial Intern Relationship Specialty Start Date End Date Wesley Em MD PCP - General Internal Medicine 09/20/12 documented as of this encounter
--- OUTSIDE RECORDS SUMMARY | 2024-06-18 19:06 | XMS_ITS | Encounter Summary ---
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, unspecified dementia type (HCC) Liza Morrow MD [address] [place] [address] [facility] [address] [place] [address] Referral ID Status Reason Start Date Expiration Date V isits Requested Visits Authorized [id number] Closed Specialty Services Required 04/30/2024 04/30/[phone] Encounter Details Date Type Department Care Team (Late st Contact Info) Description 04/30/2024 Orders Only [facility] [address] [place] [phone] Liza Morrow MD [address] [place] [address] History of CVA (cerebrovascular accident) ; Parkinsonian [...] st Contact Info) Description 07/11/2024 10:30 AM PATENT LITIGATION ASSOCIATE Office Visit [facility] - Geriatrics [address] [place] [phone] Liza Morrow MD [address] [place] [address] 07/16/2024 10:00 AM PATENT LITIGATION ASSOCIATE Office Visit [facility] - Ophthalmology [address] [place] [phone] Shahriar Young MD [address] [place] [address] [place] [phone] Scheduled Referrals Name Type Priority Associated Diagnoses [...] (HCC) documented in this encounter Care Teams Conveyor Tender Relationship Specialty Start Date End Date Wesley Em MD PCP - General Internal Medicine 09/20/12 documented as of this encounter
--- OUTSIDE RECORDS SUMMARY | 2024-06-18 19:06 | XMS_ITS | Encounter Summary ---
Author Organization [facility] Address [address] [place] [address] Care Team Providers Care Electroless Plater Name Role Phone Wesley Em MD Primary [...] st Contact Info) Description 07/11/2024 10:30 AM PICK UP Office Visit [facility] - Geriatrics [address] [place] [phone] Liza Morrow MD [address] [place] [phone] 07/16/2024 10:00 AM PICK UP Office Visit [facility] - Ophthalmology [address] [place] [phone] Shahriar Young MD [address] [place] [address] [place] [phone] documented as of this encounter Visit Diagnoses Not on filedocumented in this encounter Care Teams Electroless Plater Relationship Specialty Start Date End Date Wesley Em MD PCP - General Internal Medicine 09/20/12 documented as of this encounter
--- OUTSIDE RECORDS SUMMARY | 2024-06-18 19:07 | XMS_ITS | Encounter Summary ---
Author Organization [facility] Address [facility] [place] [address] Care Team Providers Care Nuclear Waste Management Engineer Name Role Phone Wesley Em MD Primary Care Provider Unavail able Reason for Visit * Auth/Cert - Closed Specialty Diagnoses / Procedures Referred By Jomar t Referred To Contact Diagnoses stint [id number] Referral ID Status Reason Start Date Expiration Date Visits Re quested Visits Authorized [id number] Closed 1 1 Encounter Details Date Type Department Care Team (Latest Contact Info) Description 09/20/2012 1:04 PM CDT - 09/21/2012 2:57 PM CDT Hospital Encounter DP 4N [facility] [address] [place] [address] [place] [id number] [address] Cardiac Catheterization Discharge Disposition: Home or Self [...] MCG/ACT nasal spray Commonly known as: FLONASE [place] 2 Sprays into each nostril once daily. [...] light headedness. FOLLOW UP With Dr. Millan (brassiere cup mold cutter) Monday at 11:45am-[place] Office [phone]; [address] [facility] , [address], [facility] [address]. If your insurance requires a referral please [...] light headedness. FOLLOW UP With Dr. Millan (brassiere cup mold cutter) Monday at 11:45am-[place] [facility] [phone]; [address], [address], [facility] [address]. If your insurance requires a referral please [...] 5 mg by mouth once daily. B Jjvrlhd-V-Akxsx Acid (STRESS FORMULA PO) Take by mouth 2 times daily. 04/18/2024 cloNIDine (CATAPRES) 0.2 MG tablet Take 0.2 mg by mouth 2 times daily. 06/01/2018 clopidogrel (PLAVIX) 75 MG tabletIndications:CAD (coronary artery disease) Take 1 Tab by mouth once daily. 30 Tab 11 09/21/2012 04/18/2024 fluticasone propionate (FLONASE) 50 MCG/ACT nasal spray [place] 2 Sprays into each nostril once daily. [...] this time. Millicent Jacobs RN, BSN manager diversity [facility] [phone] * Alyssa Brito RN - 09/21/2012 3:01 [...] Dr. Millan 11/06/12 at 1145 in the [place] office. Patient verbalized understanding. * Chantel Willis [...] and alert family at bedside, placed on brand marketing manager SR on the monitor patient right groin [...] for this basename: SODIUM:3,POTASSIUM:3,CHLORIDE:3,CO2:3,BUN:3,CREATININE:3,GLUCOSE:3,CALCIUM:3 in the last 27889 hours No results found for this basename: WBC:3,HGB:3,HCT:3,PLTCOUNT:3 in the last 72026 hours No results found for this basename: INR:3 in the last 49500 hours PRE-SEDATION PHYSICIAN ASSESSMENT Medications, vital signs [...] fluticasone propionate (FLONASE) 50 MCG/ACT nasal spray [place] 2 Sprays into each nostril once daily. [...] 1/2 tab daily Yes Historical Provider, B Tgyjtle-J-Kflom Acid (STRESS FORMULA PO) Take by mouth [...] for this basename: WBC:3,HGB:3,HCT:3,PLTCOUNT:3 in the last 61696 hours No results found for this basename: SODIUM:3,POTASSIUM:3,CHLORIDE:3,CO2:3,BUN:3,CREATININE:3,GLUCOSE:3,CALCIUM:3 in the last 83052 hours No results found for this basename: TROPONIN:3 in the last 12724 hours No results found for this basename: INR:3 in the last 48315 hours No results found for this basename: BNP in the last 84962 hours No results found for this basename: DIGOXIN:3 in the last 00722 hours No results found for this basename: CHOL:3,TRI,HDL:3,LDLCA in the last 44755 hours No results found for this basename: TSH:3 in the last 82623 hours Assessment and Plan: 1. CAD, with [...] 6:11 PM CDTAssociated Order(s): CARDIAC CATH CONSULT [facility] CARDIAC CATHETERIZATION PATIENT: VERNA ZUNIGA MR#: [id number] ADMIT DATE: 09/20/2012 CSN: [id number] PROCEDURE DATE: 09/20/2012 : 1945 PHYSICIAN: Trista Millan MD ROOM: [facility] REFERRING PHYSICIAN: TRISTA MILLAN INDICATION: The patient is a very pleasant 66-year-old gentleman with history of coronary artery disease, a recent markedly abnormal stress test in the setting of dyspnea and angina. Coronary angiography in [place], [place] 2 weeks ago revealed severe 2-vessel [...] via right femoral artery using a 7- Israeli sheath advanced over the wire without difficulty after local anesthesia was applied using 1% lidocaine. The right coronary artery was initially cannulated using a 7-Israeli AL-0.75 guide catheter, which was replaced with a 7-Israeli FR4 guide catheter for better guide support. [...] puncture site hemostasis was achieved using an 8-Israeli Angio-Seal device without complications. CONCLUSION: 1. Successful [...] be continued. TRISTA MILLAN MD ECA/MODL #: [id number] MEDICAL/SURGICAL CARDIAC CATHETERIZATION - DP * Trista Millan MD - 09/20/2012 4:23 PM CDT POST CORONARY ANGIOGRAPHY/INTERVENTION PROCEDURE NOTE Date: 09/20/2012 Time: 4:23 PM Verna Zuniga is a 66 y.o. male. Full procedure note dictated # [id number]. Pre-procedure Diagnosis: CAD Indications: CAD Presentation - [...] st Contact Info) Description 07/11/2024 10:[address] TRANSCRIBER Office Visit [facility] Ger[facility] [address] [place] [phone] Liza Morrow MD [address] [place] [address] 07/16/2024 10:[address] TRANSCRIBER Office Visit [facility] - Ophthalmology [address] [place] [phone] Shahriar Young MD [address] [place] [address] [place] [address] Scheduled Orders Name Type Priority Associated Diagnoses [...] POINT OF CARE ORDERABLES Performing Organization Address [facility] de Phone Number [facility] [address] [place] [address] * (ABNORMAL) GLUCOSE - POINT OF CARE (09/21/2012 6:20 AM CDT) Blood specimen (specimen) BLOOD SPECIMEN / Unknown 09/21/2012 6:20 AM CDT 09/22/2012 5:33 PM CDT Trista Millan MD LAB - POINT OF CARE ORDERABLES Performing Organization Address [facility] Co de Phone Number [facility] [address] [place] [address] * (ABNORMAL) BASIC METABOLIC PANEL (CALCIUM TOTAL) (09/21/2012 5:20 AM CDT) Glucose 154(H) 74 - 106 mg/dL 09/21/2012 5:51 AM CDT [facility] Sodium 141 136 - 145 mmol/L 09/21/2012 5:51 AM CDT [facility] Potassium 2.7(L) 3.5 - 5.1 mmol/L 09/21/2012 5:51 AM CDT [facility] Chloride 101 98 - 107 mmol/L 09/21/2012 5:51 AM CDT [facility] CO2 28 22 - 31 mmol/L 09/21/2012 5:51 AM CDT [facility] Calcium 9.2 8.5 - 10.1 mg/dL 09/21/2012 5:51 AM CDT [facility] Anion Gap 12 5 - 15 mmol/L 09/21/2012 5:51 AM CDT [facility] BUN 16 7 - 21 mg/dL 09/21/2012 5:51 AM CDT [facility] Creatinine 0.77 0.50 - 1.30 mg/dL 09/21/2012 5:51 AM CDT [facility] eGFR by MDRD >60 >60 ml/min/1.7 3m2 09/21/2012 5:51 AM CDT [facility] eGFR by MDRD >60 >60 ml/min/1.7 3m2 09/21/2012 5:51 AM CDT [facility] Blood specimen (specimen) BLOOD SPECIMEN / Unknown 09/21/2012 5:20 AM CDT 09/21/2012 5:30 AM CDT Trista Millan MD LAB - CHEMISTRY ASAF [facility] Organization Address City/State/ZIP Co de Phone Number [facility] [address] [place] [address] * (ABNORMAL) CBC W AUTO DIFFERENTIAL (09/21/2012 5:20 AM CDT) WBC 6.6 4.4 - 10.7 x10^9/L 09/21/2012 5:55 AM CDT [facility] RBC 3.91 3.80 - 5.40 x10^12/L 09/21/2012 5:55 AM CDT [facility] Hemoglobin 13.1 12.0 - 17.6 g/dL 09/21/2012 5:55 AM CDT [facility] Hematocrit 35.7 35.2 - 51.7 % 09/21/2012 5:55 AM CDT [facility] MCV 91.3 80.7 - 98.3 fl 09/21/2012 5:55 AM CDT [facility] MCH 33.5 26.7 - [...] - HEMATOLOGY ORD ERABLES Performing Organization Address City/[facility]/ZIP Co de Phone Number [facility] [address] [place] [address] * (ABNORMAL) GLUCOSE - POINT OF CARE (09/20/2012 9:21 PM CDT) Glucose WB/POC 199(H) 70 - 106 mg/dL 09/22/2012 5:32 PM CDT [facility] Blood specimen (specimen) BLOOD SPECIMEN / Unknown 09/20/2012 9:21 PM CDT 09/22/2012 5:32 PM CDT Trista Millan MD LAB - POINT OF CARE ORDERABLES Performing Organization Address [facility] Co de Phone Number [facility] [address] [place] [address] * (ABNORMAL) GLUCOSE - POINT OF CARE (09/20/2012 5:11 PM CDT) Glucose WB/POC 171(H) 70 - 106 mg/dL 09/21/2012 7:22 AM CDT [facility] Blood specimen (specimen) BLOOD SPECIMEN / Unknown 09/20/2012 5:11 PM CDT 09/21/2012 7:22 AM CDT Trista Millan MD LAB - POINT OF CARE ORDERABLES Performing Organization Address [facility] Co de Phone Number [facility] [address] [place] [address] * CARDIAC CATH CONSULT (09/20/2012 12:00 PM CDT) 09/20/2012 12:0 0 PM CDT Narrative Transcriptions Trista Millan MD - 09/20/2012 6:11 PM CDT [facility] CARDIAC CATHETERIZATION PATIENT: VERNA ZUNIGA MR#: [id number] ADMIT DATE: 09/20/2012 CSN: [id number] PROCEDURE DATE: 09/20/2012 :1945 PHYSICIAN: Trista Millan MD ROOM: [facility] REFERRING PHYSICIAN: TRISTA MILLAN INDICATION: The patient is a very pleasant 66-year-old gentleman withhistory of coronary artery disease, a recent markedly abnormal stress test inthe setting of dyspnea and angina. Coronary angiography in [place], [place]2 weeks ago revealed severe 2-vessel coronary [...] obtained via right femoral artery using a7- Israeli sheath advanced over the wire without difficulty after localanesthesia was applied using 1% lidocaine. The right coronary artery was initially cannulated using a 7-Israeli AL-0.75 guide catheter, which was replacedwith a 7-Israeli FR4 guide catheter for better guide support. [...] arterypuncture site hemostasis was achieved using an 8-Israeli Angio-Seal device without complications. CONCLUSION: 1. Successful percutaneous coronary intervention, rotationalatherectomy, and implantation of a 3.0 x 26 mm Resolute drug-eluting stent in the proximal right coronary artery. 2. Successful percutaneous vascular access closure. PLAN: The patient will be admitted to telemetry and will receive aspirinand Plavix daily. Beta johanne, lipid-lowering and antihypertensive therapywill be continued. TRISTA MILLAN MD ECA/MODL #: [id number] MEDICAL/SURGICAL CARDIAC CATHETERIZATION - DP Trista Millan MD ECHO ORDERABLES [facility] documented in this encounter Visit Diagnoses Diagnosis CAD (coronary artery disease) Coronary atherosclerosis of unspecified type of vessel, [place] or graft documented in this encounter Administered [...] at 1705 1524 ($ Given - Provider: aYnci Reed, SUE)1528 ($ Given - Provider: Yanci [...] SUE) documented in this encounter Care Teams Nuclear Waste Management Engineer Relationship Specialty Start Date End Date Wesley Em MD PCP - General Internal Medicine 09/20/12 documented as of this encounter
--- OUTSIDE RECORDS SUMMARY | 2024-06-18 19:07 | XMS_ITS | Clinical Summary ---
Author Organization Unknown Care Team Providers Care Spreader Box Operator Name Role Phone ARABELLA INTERSTATE, APARNA Unavailable Umu rafi HERRERA RN, MISA Unavailable Unavailabl e DANAE MATRIX SUPERVISOR, LIDIA Unavailable Unavailable RM PT, ZELDA Unavailable Unavailable REENA CHURCH WORKER, CRISS Unavailable Unavailabl e CARLOS OT, CHARLI Unavailable Unavailable Payers Payer Name Policy Type Policy Number Effective Date Expira tion Date MEDICARE.DAGMAR.[facility] [id number] Problems Condition Name Condition Details Condition Category [...] 07-03 00:00: 00 ATHSCL HEART DISEASE OF [place] CORONARY ARTERY W/O ANG PCTRS Active 07-03 00:00: 00 HYPERLIPIDEM IA, UNSPECIFIED Active 07-03 00:00: 00 REPEATED FALLS Active 2023-07 00:00: 00 UNSPECIFIED ATRIAL FIBRILLATION Active 07-03 00:00: 00 TYPE 2 DIABETES MELLITUS WITHOUT COMPLICATION S Active 07-03 00:00: 00 UNSPECIFIED HEARING LOSS, UNSPECIFIED EAR Active 07-03 00:00: 00 OTHER VISUAL DISTURBANCES Active 07-03 00:00: 00 TECHNICIAN CHEMICAL CLEANING (CURRENT) USE OF ASPIRIN Active 2023-07 00:00: 00 TECHNICIAN CHEMICAL CLEANING (CURRENT) USE OF ANTICOAGULAN TS Active 2023-07 [...] 12-09 00:00: 00 04-29 23:59 :00 No [id number] CHOLESTEROL 1 tablet DAILY 1 tablet DAILY (route: oral) Med Classific ation: Cardiovas cular Therapy Agents metoprolol tartrate 25 mg tablet 12-09 00:00: 00 12-13 00:00 :00 No [id number] Per instruc tions Per instructio ns (route: oral) Med Classific ation: Cardiovas cular Therapy Agents clopidogrel 75 mg tablet 11-18 00:00: 00 04-29 23:59 :00 No [id number] BLOOD THINNER 1 tablet DAILY 1 tablet DAILY (route: oral) Med Classific ation: Hematolog ical Agents finasteride 5 mg tablet 11-18 00:00: 00 04-29 23:59 :00 No [id number] PROSTATE 1 tablet DAILY 1 tablet DAILY (route: oral) Med Classific ation: Genitouri nary Therapy atorvastati n 40 mg tablet 10-07 00:00: 00 12-13 00:00 :00 No [id number] Per instruc tions Per instructio ns (route: oral) Med Classific ation: Cardiovas cular Therapy Agents atorvastati n 40 mg tablet 10-07 00:00: 00 12-13 00:00 :00 No [id number] Per instruc tions Per instructio ns (route: oral) Med Classific ation: Cardiovas cular Therapy Agents metoprolol succinate ER 50 mg tablet,exte nded release 24 hr 10-07 00:00: 00 12-13 00:00 :00 No [id number] Per instruc tions Per instructio ns (route: oral) Med Classific ation: Cardiovas cular Therapy Agents metoprolol succinate ER 50 mg tablet,exte nded release 24 hr 10-07 00:00: 00 04-29 23:59 :00 No [id number] BLOOD PRESSURE 1 tablet DAILY 1 tablet DAILY (route: oral) Med Classific ation: Cardiovas cular Therapy Agents hydrochloro thiazide 12.5 mg tablet 09-22 00:00: 00 12-13 00:00 :00 No [id number] Per instruc tions Per instructio ns (route: oral) Med Classific ation: Cardiovas cular Therapy Agents metoprolol tartrate 25 mg tablet 09-22 00:00: 00 12-13 00:00 :00 No [id number] Per instruc tions Per instructio ns (route: oral) Med Classific ation: Cardiovas cular Therapy Agents clonidine HCl 0.1 mg tablet 09-20 00:00: 00 12-13 00:00 :00 No [id number] Per instruc tions Per instructio ns (route: oral) Med Classific ation: Cardiovas cular Therapy Agents atorvastati n 80 mg tablet 09-16 00:00: 00 12-13 00:00 :00 No [id number] Per instruc tions Per instructio ns (route: oral) Med Classific ation: Cardiovas cular Therapy Agents clopidogrel 75 mg tablet 09-16 00:00: 00 12-13 00:00 :00 No [id number] Per instruc tions Per instructio ns (route: oral) Med Classific ation: Hematolog ical Agents esomeprazol e magnesium 40 mg capsule,del ayed release 09-16 00:00: 00 12-13 00:00 :00 No [id number] Per instruc tions Per instructio ns (route: oral) Med Classific ation: Gastroint estinal Therapy Agents finasteride 5 mg tablet 3-17 00:00: 00 12-13 00:00 :00 No [id number] Per instruc tions Per instructio ns (route: oral) Med Classific ation: Genitouri nary Therapy Aspirin Low Dose 81 mg tablet,cedric yed release 12-13 00:00: 00 04-29 23:59 :00 No [id number] BLOOD THINNER 1 tablet DAILY 1 tablet DAILY (route: oral) Med Classific ation: Hematolog ical Agents lidocaine 5 % topical patch 12-13 00:00: 00 04-29 23:59 :00 No [id number] PAIN 1 adhesiv e patch, medicat ed EVERY 12 HOURS 1 adhesive patch, medicated EVERY 12 HOURS (route: topical) Med Classific ation: Dermatolo gical oxycodone 5 mg capsule 12-13 00:00: 00 04-29 23:59 :00 No [id number] NEEDED FOR MODERATE PAIN 1 capsule EVERY 8 HOURS 1 capsule EVERY 8 HOURS (route: oral) Med Classific ation: Analgesic , Anti-infl ammatory or Antipyret ic tramadol 50 mg tablet 2023-07 0-12 00:00: 00 05-01 00:00 :00 No [id number] Unavailable Per instruc tions EVERY 6 HOURS NEEDED Per instructio ns EVERY 6 HOURS NEEDED (route: oral) Med Classific ation: Analgesic , Anti-infl ammatory or Antipyret ic amlodipine 5 mg tablet 2023-07 0-03 00:00: 00 Yes [id number] BLOOD PRESSURE 1 tablet DAILY 1 tablet DAILY (route: oral) Med Classific ation: Cardiovas cular Therapy Agents lisinopril 20 mg tablet 2023-07 0-03 00:00: 00 Yes [id number] BLOOD PRESSURE 1 tablet DAILY 1 tablet DAILY (route: oral) Med Classific ation: Cardiovas cular Therapy Agents acetaminoph en 500 mg capsule 2023-07 0- 00:00: 00 Yes [id number] PAIN 2 capsule 2 TIMES DAILY 2 capsule 2 TIMES DAILY (route: oral) Med Classific ation: Analgesic , Anti-infl ammatory or Antipyret ic aspirin 81 mg tablet,cedric yed release 2023-07 00:00: 00 Yes [id number] BLOOD THINNER 1 tablet DAILY 1 tablet DAILY (route: oral) Med Classific ation: Hematolog ical Agents atorvastati n 40 mg tablet 2023-07 00:00: 00 Yes [id number] CHOLESTEROL 1 tablet DAILY 1 tablet DAILY (route: oral) Med Classific ation: Cardiovas cular Therapy Agents docusate sodium 100 mg tablet 2023-07 00:00: 00 Yes [id number] STOOL SOFTNER 1 tablet DAILY 1 tablet DAILY (route: oral) Med Classific ation: Gastroint estinal Therapy Agents finasteride 5 mg tablet 2023-07 00:00: 00 Yes [id number] PROSTATE 1 tablet DAILY 1 tablet DAILY (route: oral) Med Classific ation: Genitouri nary Therapy magnesium 400 mg (as magnesium oxide) tablet 2023-07 00:00: 00 Yes [id number] SUPPLEMENT 1 tablet 2 TIMES DAILY 1 tablet 2 TIMES DAILY (route: oral) Med Classific ation: Electroly te Balance-N utritiona l Products memantine 5 mg tablet 2023-07 00:00: 00 Yes [id number] DEMONSTRATE 1 tablet 2 TIMES DAILY 1 tablet 2 TIMES DAILY (route: oral) Med Classific ation: Cognitive Disorder Therapy omeprazole 20 mg capsule,del ayed release 2023-07 00:00: 00 Yes [id number] HEARTBURN 1 capsule DAILY 1 capsule DAILY (route: oral) Med Classific ation: Gastroint estinal Therapy Agents Xarelto 20 mg tablet 2023-07 00:00: 00 Yes [id number] BLOOD THINNER 1 tablet DAILY 1 tablet [...] PHYSICIANS . RN TO OBSERVE AND ASSESS, MATRIX SUPERVISOR/SUPERVISOR PARTICLEBOARD TO OBSERVE FOR RISK FOR FALLS AND INSTRUCT IN FALL PREVENTION, HOME SAFETY, MEDICATION MANAGEMENT, INFECTION PREVENTION, AND NUTRITION MANAGEMENT. RN/MATRIX SUPERVISOR/SUPERVISOR PARTICLEBOARD NURSE MAY PERFORM O2 SATURATION LEVEL ON ADMISSION AND PRN FOR EVERY VISIT FOR RN TO ASSESS/MATRIX SUPERVISOR TO OBSERVE PATIENT, WITH NOTIFICATION TO THE PHYSICIAN IF SATURATION IS 90% IN THE ABSENCE OF MORE SPECIFIC PARAMETERS FROM THE PHYSICIAN. AGENCY MAY PERFORM A RESUMPTION OF CARE VISIT FOLLOWING ANY HOSPITAL ADMISSION. RN/MATRIX SUPERVISOR/SUPERVISOR PARTICLEBOARD TO MONITOR CO-MORBID CONDITIONS LISTED ON THE PLAN OF CARE AND ANY NEW CONDITIONS THAT PRESENT THEMSELVES DURING THIS EPISODE TO IDENTIFY CHANGES AND INTERVENE TO MINIMIZE COMPLICATIONS. [code = RN TO OBSERVE, ASSESS, EVALUATE, AND DEVELOP AN INDIVIDUALIZED PLAN OF CARE. AGENCY MAY ACCEPT ORDERS FROM CONSULTING PHYSICIANS . RN TO OBSERVE AND ASSESS, MATRIX SUPERVISOR/SUPERVISOR PARTICLEBOARD TO OBSERVE FOR RISK FOR FALLS AND INSTRUCT IN FALL PREVENTION, HOME SAFETY, MEDICATION MANAGEMENT, INFECTION PREVENTION, AND NUTRITION MANAGEMENT. RN/MATRIX SUPERVISOR/SUPERVISOR PARTICLEBOARD NURSE MAY PERFORM O2 SATURATION LEVEL ON ADMISSION AND PRN FOR EVERY VISIT FOR RN TO ASSESS/MATRIX SUPERVISOR TO OBSERVE PATIENT, WITH NOTIFICATION TO THE PHYSICIAN IF SATURATION IS 90% IN THE ABSENCE OF MORE SPECIFIC PARAMETERS FROM THE PHYSICIAN. AGENCY MAY PERFORM A RESUMPTION OF CARE VISIT FOLLOWING ANY HOSPITAL ADMISSION. RN/MATRIX SUPERVISOR/SUPERVISOR PARTICLEBOARD TO MONITOR CO-MORBID CONDITIONS LISTED ON THE PLAN OF CARE AND ANY NEW CONDITIONS THAT PRESENT THEMSELVES DURING THIS EPISODE TO IDENTIFY CHANGES AND INTERVENE TO MINIMIZE COMPLICATIONS.] Future Scheduled Test MEDICATION MANAGEMENT; RN/MATRIX SUPERVISOR/SUPERVISOR PARTICLEBOARD TO REVIEW MEDICATIONS FOR INTERACTIONS, EFFECTIVENESS OF DRUG THERAPY, AND SIGNS/SYMPTOMS OF ADVERSE REACTIONS. MAY INSTRUCT AND REINFORCE MEDICATION TEACHING RELATED TO THE USE OF MEDICATIONS, DOSAGE, FREQUENCY, PURPOSE, SIDE EFFECTS, AND TO REPORT COMPLICATIONS. [code = MEDICATION MANAGEMENT; RN/MATRIX SUPERVISOR/SUPERVISOR PARTICLEBOARD TO REVIEW MEDICATIONS FOR INTERACTIONS, EFFECTIVENESS OF DRUG THERAPY, AND SIGNS/SYMPTOMS OF ADVERSE REACTIONS. MAY INSTRUCT AND REINFORCE MEDICATION TEACHING RELATED TO THE USE OF MEDICATIONS, DOSAGE, FREQUENCY, PURPOSE, SIDE EFFECTS, AND TO REPORT COMPLICATIONS.] Future Scheduled Test ANTICOAGUL ATION MANAGEMENT; RN TO ASSESS AND TEACH, MATRIX SUPERVISOR/SUPERVISOR PARTICLEBOARD TO OBSERVE/TEACH/MONITOR EFFECTIVENESS OF ANTICOAGULATION THERAPY. RN/MATRIX SUPERVISOR/SUPERVISOR PARTICLEBOARD TO INSTRUCT ON SIGNS AND SYMPTOMS OF BLEEDING/ADVERSE REACTIONS TO REPORT TO PHYSICIAN. PATIENT IS PRESCRIBED XARELTO [code = ANTICOAGULATION MANAGEMENT; RN TO ASSESS AND TEACH, MATRIX SUPERVISOR/SUPERVISOR PARTICLEBOARD TO OBSERVE/TEACH/MONITOR EFFECTIVENESS OF ANTICOAGULATION THERAPY. RN/MATRIX SUPERVISOR/SUPERVISOR PARTICLEBOARD TO INSTRUCT ON SIGNS AND SYMPTOMS OF BLEEDING/ADVERSE REACTIONS TO REPORT TO PHYSICIAN. PATIENT IS PRESCRIBED XARELTO ] Future Scheduled Test RISK FOR H OSPITALIZATION; RN TO ASSESS/TEACH, SUPERVISOR PARTICLEBOARD/MATRIX SUPERVISOR TO OBSERVE/TEACH PATIENT/CAREGIVER ON RISK FOR HOSPITALIZATION/EMERGENCY ROOM VISITS, TEACH SIGNS AND SYMPTOMS THAT PUT PATIENT AT RISK, WHEN TO NOTIFY NURSE/PHYSICIAN OF COMPLICATIONS/DECLINE, AND WHEN TO CALL 911. [code = RISK FOR HOSPITALIZATION; RN TO ASSESS/TEACH, SUPERVISOR PARTICLEBOARD/MATRIX SUPERVISOR TO OBSERVE/TEACH PATIENT/CAREGIVER ON RISK FOR HOSPITALIZATION/EMERGENCY ROOM VISITS, TEACH SIGNS AND SYMPTOMS THAT PUT PATIENT AT RISK, WHEN TO NOTIFY NURSE/PHYSICIAN OF COMPLICATIONS/DECLINE, AND WHEN TO CALL 911.] Future Scheduled Test CARDIOVASC ULAR SYSTEM; RN TO ASSESS/TEACH, MATRIX SUPERVISOR/SUPERVISOR PARTICLEBOARD TO OBSERVE/TEACH RELATED TO ALTERED CARDIOVASCULAR STATUS TO MINIMIZE COMPLICATIONS AND REDUCE HOSPITALIZATION. [code = CARDIOVASCULAR SYSTEM; RN TO ASSESS/TEACH, MATRIX SUPERVISOR/SUPERVISOR PARTICLEBOARD TO OBSERVE/TEACH RELATED TO ALTERED CARDIOVASCULAR STATUS TO MINIMIZE COMPLICATIONS AND REDUCE HOSPITALIZATION.] Future Scheduled Test HYPERTENSI ON MANAGEMENT; RN TO ASSESS AND TEACH, MATRIX SUPERVISOR/SUPERVISOR PARTICLEBOARD TO OBSERVE AND TEACH WARNING SIGNS AND SYMPTOMS TO AVOID HOSPITALIZATION. [code = HYPERTENSION MANAGEMENT; RN TO ASSESS AND TEACH, MATRIX SUPERVISOR/SUPERVISOR PARTICLEBOARD TO OBSERVE AND TEACH WARNING SIGNS AND SYMPTOMS TO AVOID HOSPITALIZATION.] Future Scheduled Test GENITOURIN LEEROY MANAGEMENT; RN TO ASSESS AND TEACH, MATRIX SUPERVISOR/SUPERVISOR PARTICLEBOARD TO OBSERVE AND TEACH RELATED TO ALTERED GENITOURINARY STATUS TO MINIMIZE COMPLICATIONS AND REDUCE HOSPITALIZATION. [code = GENITOURINARY MANAGEMENT; RN TO ASSESS AND TEACH, MATRIX SUPERVISOR/SUPERVISOR PARTICLEBOARD TO OBSERVE AND TEACH RELATED TO ALTERED GENITOURINARY STATUS TO MINIMIZE COMPLICATIONS AND REDUCE HOSPITALIZATION.] Future Scheduled Test URINARY IN CONTINENCE MANAGEMENT; RN TO ASSESS AND TEACH, MATRIX SUPERVISOR/LVNTO OBSERVE AND TEACH MANAGEMENT OF URINARY INCONTINENCE. TEACH/INSTRUCT ON PREVENTING INFECTION AND SKIN BREAKDOWN. RN/MATRIX SUPERVISOR/SUPERVISOR PARTICLEBOARD MAY INSTRUCT IN BLADDER TRAINING PROGRAM INDICATED. [code = URINARY INCONTINENCE MANAGEMENT; RN TO ASSESS AND TEACH, MATRIX SUPERVISOR/LVNTO OBSERVE AND TEACH MANAGEMENT OF URINARY INCONTINENCE. TEACH/INSTRUCT ON PREVENTING INFECTION AND SKIN BREAKDOWN. RN/MATRIX SUPERVISOR/SUPERVISOR PARTICLEBOARD MAY INSTRUCT IN BLADDER TRAINING PROGRAM INDICATED.] Future Scheduled Test URINARY MO LECULAR TESTING PROTOCOL UP TO 2 PRN RN/MATRIX SUPERVISOR/SUPERVISOR PARTICLEBOARD VISITS MAY BE PERFORMED FOR S/S OF UTI. RN TO ASSESS, MATRIX SUPERVISOR/SUPERVISOR PARTICLEBOARD TO OBSERVE INITIATION OF UTI PROTOCOL. RN/SUPERVISOR PARTICLEBOARD/MATRIX SUPERVISOR TO INSTRUCT PATIENT AND/OR CAREGIVER ON S/S OF UTI TO REPORT TO RN/SUPERVISOR PARTICLEBOARD/MATRIX SUPERVISOR IF NEW OR WORSENING SYMPTOMS. DRINK PLENTY OF WATER THROUGHOUT THE DAY TO MAINTAIN HYDRATION (UNLESS CONTRAINDICATED.) URINATE WHEN THE URGE IS FELT, DO NOT WAIT. WASH GENITALS DAILY. WIPE FROM FRONT TO BACK AFTER HAVING A BOWEL MOVEMENT. RN/SUPERVISOR PARTICLEBOARD/MATRIX SUPERVISOR TO OBTAIN MOLECULAR URINE TESTING BY OPTION 1 OR OPTION 2 (OPTION 1) RN/SUPERVISOR PARTICLEBOARD/MATRIX SUPERVISOR TO OBTAIN U/A WITH REFLEX TO UTI PANEL (MOLECULAR) VIA CLEAN CATCH URINE AND IF UNABLE TO OBTAIN MAY PERFORM AN IN AND OUT CATH. IF PATIENT HAS INDWELLING CATHETER MAY OBTAIN FROM SAMPLING PORT. (OPTION 2) RN/SUPERVISOR PARTICLEBOARD/MATRIX SUPERVISOR TO OBTAIN UTI PANEL (MOLECULAR) VIA SWAB COLLECTION METHOD FROM ADULT BRIEF/DIAPER OR PAD IF PATIENT IS INCONTINENT. NOTIFY PROVIDER OF RESULTS AND OBTAIN FURTHER ORDERS. [code = URINARY MOLECULAR TESTING PROTOCOL UP TO 2 PRN RN/MATRIX SUPERVISOR/SUPERVISOR PARTICLEBOARD VISITS MAY BE PERFORMED FOR S/S OF UTI. RN TO ASSESS, MATRIX SUPERVISOR/SUPERVISOR PARTICLEBOARD TO OBSERVE INITIATION OF UTI PROTOCOL. RN/SUPERVISOR PARTICLEBOARD/MATRIX SUPERVISOR TO INSTRUCT PATIENT AND/OR CAREGIVER ON S/S OF UTI TO REPORT TO RN/SUPERVISOR PARTICLEBOARD/MATRIX SUPERVISOR IF NEW OR WORSENING SYMPTOMS. DRINK PLENTY OF WATER THROUGHOUT THE DAY TO MAINTAIN HYDRATION (UNLESS CONTRAINDICATED.) URINATE WHEN THE URGE IS FELT, DO NOT WAIT. WASH GENITALS DAILY. WIPE FROM FRONT TO BACK AFTER HAVING A BOWEL MOVEMENT. RN/SUPERVISOR PARTICLEBOARD/MATRIX SUPERVISOR TO OBTAIN MOLECULAR URINE TESTING BY OPTION 1 OR OPTION 2 (OPTION 1) RN/SUPERVISOR PARTICLEBOARD/MATRIX SUPERVISOR TO OBTAIN U/A WITH REFLEX TO UTI PANEL (MOLECULAR) VIA CLEAN CATCH URINE AND IF UNABLE TO OBTAIN MAY PERFORM AN IN AND OUT CATH. IF PATIENT HAS INDWELLING CATHETER MAY OBTAIN FROM SAMPLING PORT. (OPTION 2) RN/SUPERVISOR PARTICLEBOARD/MATRIX SUPERVISOR TO OBTAIN UTI PANEL (MOLECULAR) VIA SWAB COLLECTION METHOD FROM ADULT BRIEF/DIAPER OR PAD IF PATIENT IS INCONTINENT. NOTIFY PROVIDER OF RESULTS AND OBTAIN FURTHER ORDERS.] Future Scheduled Test FALL REDUC TION MANAGEMENT; RN TO ASSESS AND TEACH, MATRIX SUPERVISOR/SUPERVISOR PARTICLEBOARD TO OBSERVE AND TEACH ON EDUCATION AND INTERVENTION TO IDENTIFY FALL RISK FACTORS SUCH MEDICATIONS THAT MAY CAUSE DIZZINESS, CHRONIC DISEASES, PSYCHOLOGICAL FACTORS, AND EMPOWER/EDUCATE PATIENT/CAREGIVER TO MINIMIZE FALL RISK. [code = FALL REDUCTION MANAGEMENT; RN TO ASSESS AND TEACH, MATRIX SUPERVISOR/SUPERVISOR PARTICLEBOARD TO OBSERVE AND TEACH ON EDUCATION AND INTERVENTION TO IDENTIFY FALL RISK FACTORS SUCH MEDICATIONS THAT MAY CAUSE DIZZINESS, CHRONIC DISEASES, PSYCHOLOGICAL FACTORS, AND EMPOWER/EDUCATE PATIENT/CAREGIVER TO MINIMIZE FALL RISK.] Future Scheduled Test DEMENTIA M ANAGEMENT WITHOUT BEHAVIORAL DISTURBANCES; RN TO ASSESS AND TEACH, SUPERVISOR PARTICLEBOARD/MATRIX SUPERVISOR TO OBSERVE AND TEACH AND TO PROVIDE EDUCATION ON DEMENTIA WITHOUT BEHAVIORAL DISTURBANCES. [code = DEMENTIA MANAGEMENT WITHOUT BEHAVIORAL DISTURBANCES; RN TO ASSESS AND TEACH, SUPERVISOR PARTICLEBOARD/MATRIX SUPERVISOR TO OBSERVE AND TEACH AND TO PROVIDE [...] MANAG EMENT; RN TO ASSESS AND TEACH, SUPERVISOR PARTICLEBOARD/MATRIX SUPERVISOR TO OBSERVE AND TEACH AND PROVIDE EDUCATION ON PAIN MANAGEMENT TECHNIQUES. [code = PAIN MANAGEMENT; RN TO ASSESS AND TEACH, SUPERVISOR PARTICLEBOARD/MATRIX SUPERVISOR TO OBSERVE AND TEACH AND PROVIDE EDUCATION [...] End Date/Time Encounter Type Admission Type Attending [facility] Care Department Encounter ID Discharge Date Discharge Status Discharge Condition Discharge Reason Percent Goals Met 2024-05-01 00:00:00 2024-06-29 00:00:00 Outpatient MISA JUSTIN [facility] [id number] 45.00
--- OUTSIDE RECORDS SUMMARY | 2024-06-18 19:07 | XMS_ITS | Encounter Summary ---
Author Organization [facility] Address [address] [place] [address] Care Team Providers Care Artificial Flowers Dyer Name Role Phone Wesley Em MD Primary Care Provider Unavail able Reason for Visit * Reason Comments Refill Request Encounter Details Date Type Department Care Team (Late st Contact Info) Description 11/19/[address], [address] [place], [place] [phone] Juliano Lancaster MD Refill Request Social History [...] (Late Contact Info) Description 07/11/2024 10:30 AM MEDICAL TRANSCRIPTION Office Visit [facility] [address] [place] [phone] Liza Morrow MD [address] [place] [phone] 07/16/2024 10:00 AM MEDICAL TRANSCRIPTION Office Visit [facility] [address] [place] [address] [phone] Shahriar Young MD [address] [place] [address] [place] [phone] documented as of this encounter Visit Diagnoses Not on filedocumented in this encounter Care Teams Artificial Flowers Dyer Relationship Specialty Start Date End Date Wesley Em MD PCP - General Internal Medicine 09/20/12 documented as of this encounter
--- OUTSIDE RECORDS SUMMARY | 2024-06-18 19:07 | XMS_ITS | Encounter Summary ---
Author Organization [facility] Address [address] [place] [address] Care Team Providers Care Air Pollution Specialist Name Role Phone Wesley Em MD Primary Care Provider Unavail able Reason for Visit * Reason Comments Follow-up Coronary Artery Disease Encounter Details Date Type Department Care Team (Late st Contact Info) Description 11/11/2014 2:30 PM CDT Office Visit [facility] [employer] [facility] [address] [facility] [address] [place] [address] [place] [id number] [facility] [address] [place], [place] [phone] CAD (coronary artery disease) (Primary Dx); Stented [...] CHOL, TRIG, HDL, LDLCALC in the last 03102 hours. ASSESSMENT/PLAN: 1. CAD: doing well post PCI. Continue current regimen 2. Hypertension: the patient has not taken his medications today yet. 3. Dyslipidemia 4. DM 5. Polycythemia Vera. 6. Follow up in 6 months. Garth Millan MD 11/11/2014 3:17 PM documented in this encounter Plan of Treatment Upcoming Encounters Date Type Department Care Team (Late st Contact Info) Description 07/11/2024 10:30 AM MACHINE SETTER AND REPAIRER Office Visit [facility] [address] [place] [phone] Liza Morrow MD [address] [place] [phone] 07/16/2024 10:00 AM MACHINE SETTER AND REPAIRER Office Visit [facility] [address] [place] [address], [place] [phone] Shahriar Young MD [address] [place] [address] [place] [phone] documented as of this encounter Visit Diagnoses Diagnosis CAD (coronary artery disease)- Primary Coronary atherosclerosis of unspecified type of vessel, point lay ira or graft Stented coronary artery Postsurgical percutaneous transluminal coronary angioplasty status Dyslipidemia Other and unspecified hyperlipidemia Essential hypertension, benign DM (diabetes mellitus) (HCC) Type II or unspecified type diabetes mellitus without mention of complication, not stated as uncontrolled documented in this encounter Care Teams Air Pollution Specialist Relationship Specialty Start Date End Date Wesley Em MD PCP - General Internal Medicine 09/20/12 documented as of this encounter
--- OUTSIDE RECORDS SUMMARY | 2024-06-18 19:07 | XMS_ITS | Encounter Summary ---
Author Organization [facility] Address [address] [place] [address] Care Team Providers Care Certified Tower Climber Name Role Phone Wesley Em MD Primary Care Provider Unavail able Reason for Visit * Reason Comments Follow-up 1 year Encounter Details Date Type Department Care Team (Latest Contact Info) Description 05/07/2014 2:15 PM MEDICAL ORDERLY Office Visit [facility] [address] [facility] [address] [place] [address] [place] [address] [facility] [address] [place], [place] [phone] Coronary atherosclerosis of pokagon coronary artery (Primary Dx); Essential hypertension, benign; [...] Comments Blood Pressure 170/106 05/07/2014 2:36 PM MEDICAL ORDERLY Pulse 86 05/07/2014 2:36 PM MEDICAL ORDERLY Temperature - - Respiratory Rate 16 05/07/2014 2:36 PM MEDICAL ORDERLY Oxygen Saturation - - Inhaled Oxygen Concentration - - Weight 90.7 kg (200 lb) 05/07/2014 2:36 PM MEDICAL ORDERLY Height 172.7 cm (5' 8 ) 05/07/2014 2:36 PM MEDICAL ORDERLY Body Mass Index 30.41 05/07/2014 2:36 PM MEDICAL ORDERLY documented in this encounter Progress Notes * Mercedes Pacheco - 05/08/2014 10:04 AM CST Per documentation changed 414.00 (CAD, unspecified) to 414.01 (CAD, pokagon coronary artery). CAL ORDERLY * Garth Millan MD - 05/07/2014 2:45 [...] CHOL, TRIG, HDL, LDLCALC, in the last 59407 hours ASSESSMENT/PLAN: 1. CAD: doing well post PCI. Continue current regimen 2. Hypertension: suboptimally controlled. Medications being adjusted by Dr Em. 3. Dyslipidemia 4. DM 5. Polycythemia Vera. 6. Follow up in 6 months. Garth Millan MD 05/07/2014 2:45 PM CAL ORDERLY * Yeimi Joshua - 05/07/2014 2:39 PM CST [place] is a 68 y.o. male BP 170/106 Pulse 86 Resp 16 Wt 90.719 kg (200 lb) BMI 30.42 kg/m2 Chief Complaint Patient presents with ??? Follow-up 1 year CAL ORDERLY documented in this encounter Miscellaneous Notes * Addendum Note - Mercedes Pacheco - 05/08/2014 10:05 AM CSTAddended by: MERCEDES PACHECO on: 05/08/2014 10:05 AM Modules accepted: Level of Service CAL ORDERLY documented in this encounter Plan of Treatment Upcoming Encounters Date Type Department Care Team (Late st Contact Info) Description 07/11/2024 10:30 AM MEDICAL ORDERLY Office Visit [facility] [address] [place] [address], [facility] [place] [phone] Liza Morrow MD [address] [place] [address]. [place] [address] 07/16/2024 10:00 AM MEDICAL ORDERLY Office Visit [facility] [address] [place] [phone] Shahriar Young MD [address] [place] [address] DE[place] [phone] documented as of this encounter Visit Diagnoses Diagnosis Coronary atherosclerosis of pokagon coronary artery- Primary Essential hypertension, benign Dyslipidemia Other and unspecified hyperlipidemia Stented coronary artery Postsurgical percutaneous transluminal coronary angioplasty status DM (diabetes mellitus) (HCC) Type II or unspecified type diabetes mellitus without mention of complication, not stated as uncontrolled documented in this encounter Care Teams Certified Tower Climber Relationship Specialty Start Date End Date Wesley Em MD PCP - General Internal Medicine 09/20/12 documented as of this encounter
--- OUTSIDE RECORDS SUMMARY | 2024-06-18 19:07 | XMS_ITS | Encounter Summary ---
Author Organization [facility] Address [address] [facility] [place] [address] Care Team Providers Care Foreign Language Stenographer Name Role Phone Wesley Em MD Primary Care Provider Unavail able Reason for Referral * Radiology Services (Routine) - Closed Specialty Diagnoses / Procedures Referred By Contac t Referred To Contact Diagnoses Atherosclerosis of [place] coronary artery of [place] heart with angina pectoris (HCC) Procedures NM MYOCARD PERFUSION SPECT [place] [address] [place] [id number] Referral ID Status Reason Start Date Expiration Date Visits Re quested Visits Authorized [id number] Closed 11/23/2015 05/21/2016 1 1 Reason for Visit * Cardiac (Routine) - Closed Specialty Diagnoses / Procedures Referred By Contac t Referred To Contact Radiology Diagnoses CAD in [place] artery Stented coronary artery Dyslipidemia Essential hypertension, benign Procedures STRESS TEST LEXISCAN (NUCLEAR) [place] [address] [place] [address] [facility] [address] [facility], [address] [place] [address] Referral ID Status Reason Start Date Expiration Date Visits Re quested Visits Authorized [id number] Closed 11/18/2015 05/16/2016 2 2 Encounter Details Date Type Department Care Team (Latest Contact Info) Description 11/23/2015 9:34 AM CDT - 11/23/2015 9:37 AM CDT Hospital Encounter [facility] - Nuclear Medicine [address] [place] [address] [place] [address] [facility] [address] [place] [address] Discharge Disposition: Home or Self [...] 5 mg by mouth once daily. B Iliacbz-X-Vguxw Acid (STRESS FORMULA PO) Take by mouth 2 times daily. 04/18/2024 cloNIDine (CATAPRES) 0.2 MG tablet Take 0.2 mg by mouth 2 times daily. 06/01/2018 clopidogrel (PLAVIX) 75 MG tabletIndications:CAD (coronary artery disease) Take 1 Tab by mouth once daily. 30 Tab 11 09/21/2012 04/18/2024 fluticasone propionate (FLONASE) 50 MCG/ACT nasal spray [place] 2 Sprays into each nostril once daily. [...] 11:07 AM CDTQuick Note: Pt informed * aGrth Millan MD - 11/24/2015 10:07 AM CDTQuick Note: Please call patient. Stress test results good. Follow up as scheduled. Garth Millan MD 11/24/2015 10:07 AM documented in this encounter Plan of Treatment Upcoming Encounters Date Type Department Care Team (Late st Contact Info) Description 07/11/2024 10:30 AM BINDER CUTTER Office Visit [facility] - Geriatrics [address] [place] [phone] Liza Morrow MD [address] [place] [address] 07/16/2024 10:00 AM BINDER CUTTER Office Visit [facility] - Ophthalmology [address] [place] [phone] Shahriar Young MD [address] [place] [address] [place] [address] documented as of this encounter Procedures Procedure Name Priority Date/Time Associated Diagnosis Comments NM MYOCARD PERF REST STRESS Routine 11/23/2015 12:20 PM CDT Atherosclerosis of [place] coronary artery of [place] heart with angina pectoris (HCC) documented in [...] this encounter Visit Diagnoses Diagnosis CAD in [place] artery Coronary atherosclerosis of [place] coronary artery Stented coronary artery Postsurgical percutaneous transluminal coronary angioplasty status Dyslipidemia Other and unspecified hyperlipidemia Essential hypertension, benign Atherosclerosis of [place] coronary artery of [place] heart with angina pectoris (HCC) documented in this encounter Care Teams Foreign Language Stenographer Relationship Specialty Start Date End Date Wesley Em MD PCP - General Internal Medicine 09/20/12 documented as of this encounter
--- OUTSIDE RECORDS SUMMARY | 2024-06-18 19:07 | XMS_ITS | Continuity of Care Document ---
Author Organization [facility] Address [address] [place] [address] Phone Care Team Providers Care Sport Shoe Spike Assembler Name Role Phone Administrative, Provider Unavailable Unavail able Medications Medication Instructions Dosage Effective Dates (start - stop) Status Comments [place] 5 mg-325 mg Tab take 1 - 2 by Oral route q 4-6 hr prn 1-2 - Active Percocet 5 mg-325 mg Tab 1 -2 Q 4-6 HR PRN PAIN - Active Flexeril 10 mg Tab 1 TID - Active Procedures Procedure Date Medical Record Copy Medical Record Copy Per Page Office/outpatient visit,[facility] 2010 Debride 6+ nails, any method Formula 3 Antifungal Office/outpatient visit,[facility] 2010 Strapping of ankle Postop followup visit Postop followup visit X-ray exam of knee, 3 views Arthroplasty, total knee Postop followup visit Postop followup visit X-ray exam of knee, 3 views Arthroplasty, total knee Office/outpatient visit,[facility] 2010 X-ray exam of knee, 1 or2 views 011 X-ray exam of knee, 1 or2 views 011 X-ray exam of both knees, standing Advance Directives Directive Yes / No Effective Date File Name No Information Encounters Encounter Description Practice Location Reason(s) For Visit Diagnoses Date Provider Providers Copied on Encounter [facility], [address] [address], [place], [place], [id number], [place] tel:[phone] [facility] No Information 1 Administrati ve Provider. [address] [facility] [address], [place], [place], [id number], [place]. tel:[phone] Referring Provider: Wesley Em, [address] [facility] [address], [place], [address]. tel:[phone] Office/outpa tient visit,[facility], [address] [address], [place], [place], [id number], [place] tel:[phone] [facility] PLANTAR FIBROMATOSISTA LIPES CALCANEOVALGUS DERMATOPHYTOSI S OF NAILDiabetes Mellitus Type 2, Uncomplicated 1 Mark Freire [address] [facility], [facility] [address], [place], [place], [id number], [place]. tel:[phone] Referring Provider: Yu Black, [address] [place] [address], [place], [address] . tel:[phone] Office/outpa tient visit,[facility], [address] [address], [place], [place], [id number], [place] tel:[phone] [facility] TALIPES CALCANEOVALGUS PLANTAR FIBROMATOSISEN THESOPATHY, SITE NOSDiabetes Mellitus Type 2, Uncomplicated 1 Mark Freire [address] [facility], [facility] [address], [place], [place], [id number], [place]. tel:[phone] Referring Provider: Yu Black, [address] [facility] [address], [place], [address] . tel:[phone] [facility], [address] [address], [place], [place], [id number], [place] tel:[phone] [facility] JOINT REPLACED KNEELOC PRIM OSTEOART-L/LEG AFTERCARE JOINT REPLACE 1 Edenilson Olson. [address] [facility], [address], [place], [place], [id number], [place]. tel:[phone] [facility], [address] [facility] [address], [place], [place], [id number], [place] tel:[phone] [facility] JOINT REPLACED KNEELOC PRIM OSTEOART-L/LEG AFTERCARE JOINT REPLACEJOINT PAIN-L/LEG 1 Edenilson Olson. [address] [facility], [address], [place], [place], [address], [place]. tel:[phone] [facility], [address] [address], [place], [place], [id number], [place] tel:[phone] [facility] No Information 1 Edenilson Olson. [address] [facility], [facility] [address], [place], [place], [address], [place]. tel:[phone] [facility], [address] [address], [place], [place], [address], [place] tel:[phone] [facility] LOC PRIM OSTEOART-L/LEG 1 Edenilson Olson. [address] [facility], [facility] [address], [place], [place], [address], [place]. tel:[phone] [facility], [address] [address], [place], [place], [id number], [place] tel:[phone] [facility] LOC PRIM OSTEOART-L/LEG 1 Edenilson Olson. [address] [facility], [address] [address], [place], [place], [address], [place]. tel:[phone] [facility], [address] [facility] [address], [place], [place], [address], [place] tel:[phone] [facility] No Information 1 Edenilson Olson. [address] [facility], [address] [place] [address], [place], [place], [address], [place]. tel:[phone] [facility], [address], [id number], [place] tel:[phone] [facility] JOINT PAIN-L/LEGJOIN T REPLACED KNEEAFTERCARE JOINT REPLACE 1 Edenilson Olson. [address] [facility], [address] [address], [place], [place], [id number], [place]. tel:[phone] [facility], [address], [id number], [place] tel:[phone] [facility] LOC PRIM OSTEOART-L/LEG 1 Pyle Wesley. [address] [address], [place], [place], [address], [place]. tel:[phone] Office/outpa tient visit,[facility], [address] [address], [place], [place], [address], [place] tel:[phone] [facility] LOC PRIM OSTEOART-L/LEG JOINT PAIN-L/LEG 1 Pyle Wesley. [address] [address], [place], [place], [address], [place]. tel:[phone] Family History Family Member Type Diagnosis Age At Onset No Information Payers Payer name Insurance type Covered libertarian ID Authoriza tion(s) No Information Social History [...]
--- OUTSIDE RECORDS SUMMARY | 2024-06-18 19:07 | XMS_ITS | Encounter Summary ---
Author Organization [facility] Address [address] [facility] [place] [address] Care Team Providers Care Underground Mining Section Foreman Name Role Phone Wesley Em MD Primary Care Provider Unavail able Reason for Visit * Reason Onset Date Comments Medication Check 05/30/2017 Encounter Details Date Type Department Care Team (Late st Contact Info) Description 05/30/2017 Telephone [facility] Heart & Vascular Care [address] [address] Fariba Koenig, HAND DRAWER IN [facility] [address] [facility] [address] [place] [phone] Medication Check Social History Tobacco Use Types [...] twice daily,and atorvastatin 40 mg I daily. STORAGE documented in this encounter Plan of Treatment Upcoming Encounters Date Type Department Care Team (Late st Contact Info) Description 07/11/2024 10:30 AM BOOM STORAGE Office Visit [facility] - Geriatrics [address] [place] [phone] Liza Morrow MD [address] [place] [address] 07/16/2024 10:00 AM BOOM STORAGE Office Visit [facility] - Ophthalmology [address] [place] [phone] Shahriar Young MD [address] [place] [address] [place] [phone] documented as of this encounter Visit Diagnoses Not on filedocumented in this encounter Care Teams Underground Mining Section Foreman Relationship Specialty Start Date End Date Wesley Em MD PCP - General Internal Medicine 09/20/12 documented as of this encounter
--- OUTSIDE RECORDS SUMMARY | 2024-06-18 19:07 | XMS_ITS | Encounter Summary ---
Author Organization [facility] Address [address] [facility] [place] [address] Care Team Providers Care Numerical Control Machine Machinist Name Role Phone Wesley Em MD Primary Care Provider Unavail able Reason for Visit * Reason Comments Coronary Artery Disease Encounter Details Date Type Department Care Team (Late st Contact Info) Description 11/22/2016 2:10 PM CDT Office Visit [facility] [employer] [address] [facility] [address] [place] [address] [place] [address] [facility] [address] [place], [place] [phone] CAD in [place] artery (Primary Dx); Stented coronary artery; Dyslipidemia; [...] CHOL, TRIG, HDL, LDLCALC in the last 18014 hours. ASSESSMENT/PLAN: 1. CAD: doing well post PCI. Will continue current regimen. 2. Hypertension: usually well controlled 3. Dyslipidemia: followed by Dr Em. 4. DM 5. Polycythemia Vera. 6. Follow up in 6 months. Garth Millan MD 11/22/2016 3:06 PM documented in this encounter Plan of Treatment Upcoming Encounters Date Type Department Care Team (Late st Contact Info) Description 07/11/2024 10:30 AM LAST SCOURER Office Visit [facility] Ger[facility] [address] [place] [phone] Liza Morrow MD [address] [place] [phone] 07/16/2024 10:00 AM LAST SCOURER Office Visit [facility] - Ophthalmology [address] [place] [phone] Shahriar Young MD [address] [place] [address] [place] [address] documented as of this encounter Visit Diagnoses Diagnosis CAD in [place] artery- Primary Coronary atherosclerosis of [place] coronary artery Stented coronary artery Postsurgical percutaneous transluminal coronary angioplasty status Dyslipidemia Other and unspecified hyperlipidemia Essential hypertension, benign documented in this encounter Care Teams Numerical Control Machine Machinist Relationship Specialty Start Date End Date Wesley Em MD PCP - General Internal Medicine 09/20/12 documented as of this encounter
--- OUTSIDE RECORDS SUMMARY | 2024-06-18 19:07 | XMS_ITS | Encounter Summary ---
Author Organization [facility] Address [address] [place] [address] Care Team Providers Care Outpatient Physical Therapist Assistant Name Role Phone Wesley Em MD Primary Care Provider Unavail able Reason for Visit * Reason Comments Follow-up 6 mo Encounter Details Date Type Department Care Team (Late st Contact Info) Description 05/13/2015 1:15 PM FLEET TECHNICIAN Office Visit [facility] [address] [facility] [address] [place] [address] [place] [address] [facility] [address] [place], [place] [phone] CAD in [place] artery (Primary Dx); Stented coronary artery; Dyslipidemia; [...] Comments Blood Pressure 182/98 05/13/2015 1:33 PM FLEET TECHNICIAN Pulse 72 05/13/2015 1:33 PM FLEET TECHNICIAN Temperature - - Respiratory Rate 16 05/13/2015 1:33 PM FLEET TECHNICIAN Oxygen Saturation - - Inhaled Oxygen Concentration - - Weight 88.7 kg (195 lb 9.6 oz) 05/13/2015 1:33 P M FLEET TECHNICIAN Height 177.8 cm (5' 10 ) 05/13/2015 1:33 PM FLEET TECHNICIAN Body Mass Index 28.07 05/13/2015 1:33 PM FLEET TECHNICIAN documented in this encounter Progress Notes * [...] CHOL, TRIG, HDL, LDLCALC in the last 68929 hours. ASSESSMENT/PLAN: 1. CAD: doing well post PCI. Continue current regimen 2. Hypertension: the patient has not taken his medications today yet. 3. Dyslipidemia: followed by Dr Em. 4. DM 5. Polycythemia Vera. 6. Follow up in 6 months. Garth Millan MD 05/13/2015 1:48 PM T TECHNICIAN documented in this encounter Plan of Treatment Upcoming Encounters Date Type Department Care Team (Late st Contact Info) Description 07/11/2024 10:30 AM FLEET TECHNICIAN Office Visit [facility] - Geriatrics [address] [place] [phone] Liza Morrow MD [address] [place] [address] 07/16/2024 10:00 AM FLEET TECHNICIAN Office Visit [facility] - Ophthalmology [address] [place] [phone] Shahriar Young MD [address] [place] [address] [place] [address] documented as of this encounter Visit Diagnoses Diagnosis CAD in red [place] artery- Primary Coronary atherosclerosis of [place] coronary artery Stented coronary artery Postsurgical percutaneous transluminal coronary angioplasty status Dyslipidemia Other and unspecified hyperlipidemia DM II (diabetes mellitus, type II), controlled (HCC) Type II or unspecified type diabetes mellitus without mention of complication, not stated as uncontrolled documented in this encounter Care Teams Outpatient Physical Therapist Assistant Relationship Specialty Start Date End Date Wesley Em MD PCP - General Internal Medicine 09/20/12 documented as of this encounter
--- OUTSIDE RECORDS SUMMARY | 2024-06-18 19:07 | XMS_ITS | Encounter Summary ---
Author Organization [facility] Address [facility] [place] [address] Care Team Providers Care Pile Driving Technician Name Role Phone Wesley Em MD Primary Care Provider Unavail able Reason for Referral * Cardiac (Routine) - Closed Specialty Diagnoses / Procedures Referred By Contac t Referred To Contact Radiology Diagnoses CAD in [place] artery Stented coronary artery Dyslipidemia Essential hypertension, benign Procedures STRESS TEST LEXISCAN (NUCLEAR) [place] [address] [place] [address] [facility] [address] [facility], [address] [place] [address] Referral ID Status Reason Start Date Expiration Date Visits Re quested Visits Authorized [id number] Closed 11/18/2015 05/16/2016 2 2 Reason for Visit * Reason Comments Follow-up 6 mo Encounter Details Date Type Department Care Team (Late st Contact Info) Description 11/18/2015 2:45 PM CDT Office Visit [facility] Medical [facility] [address] [facility] [address] [place] [address] [place] [address] [place] [address] CAD in [place] artery (Primary Dx); Stented coronary artery; Dyslipidemia; [...] CHOL, TRIG, HDL, LDLCALC in the last 38393 hours. ASSESSMENT/PLAN: 1. CAD: doing well post [...] st Contact Info) Description 07/11/2024 10:30 AM FARROWING WORKER Office Visit [facility] - Geriatrics [address] [place] [address], [place] [address] Liza Morrow MD [address] [place] [address] 07/16/2024 10:00 AM FARROWING WORKER Office Visit [facility] - Ophthalmology [address] [place] [phone] Shahriar Young MD [address] [place] [address] [place] [address] documented as of this encounter Visit Diagnoses Diagnosis CAD in [place] artery- Primary Coronary atherosclerosis of [place] coronary artery Stented coronary artery Postsurgical percutaneous transluminal coronary angioplasty status Dyslipidemia Other and unspecified hyperlipidemia Essential hypertension, benign documented in this encounter Care Teams Pile Driving Technician Relationship Specialty Start Date End Date Wesley Em MD PCP - General Internal Medicine 09/20/12 documented as of this encounter
--- OUTSIDE RECORDS SUMMARY | 2024-06-18 19:07 | XMS_ITS | Encounter Summary ---
Author Organization [facility] Address [address] [place] [address] Care Team Providers Care Infection Prevention Practitioner Name Role Phone Wesley Em MD Primary Care Provider Unavail able Reason for Visit * Reason Comments Follow-up 6 mo Encounter Details Date Type Department Care Team (Late st Contact Info) Description 05/24/2016 3:00 PM ACCOUNT RESOLUTION EXPERT Office Visit [facility] [employer] [facility] [address] [facility] [address] [place] [address] [place] [address] [facility] [address] [place], [place] [phone] CAD in [place] artery (Primary Dx); Dyslipidemia; Essential hypertension, benign; [...] Comments Blood Pressure 154/84 05/24/2016 3:07 PM ACCOUNT RESOLUTION EXPERT Pulse 75 05/24/2016 3:07 PM ACCOUNT RESOLUTION EXPERT Temperature - - Respiratory Rate 15 05/24/2016 3:07 PM ACCOUNT RESOLUTION EXPERT Oxygen Saturation - - Inhaled Oxygen Concentration - - Weight 88.5 kg (195 lb 3.2 oz) 05/24/2016 3:07 P M ACCOUNT RESOLUTION EXPERT Height 175.3 cm (5' 9 ) 05/24/2016 3:07 PM ACCOUNT RESOLUTION EXPERT Body Mass Index 28.83 05/24/2016 3:07 PM ACCOUNT RESOLUTION EXPERT documented in this encounter Progress Notes * [...] CHOL, TRIG, HDL, LDLCALC in the last 66381 hours. ASSESSMENT/PLAN: 1. CAD: doing well post PCI. Will continue current regimen. 2. Hypertension: usually well controlled 3. Dyslipidemia: followed by Dr Em. 4. DM 5. Polycythemia Vera. 6. Follow up in 6 months. Garth Millan MD 05/24/2016 3:31 PM UNT RESOLUTION EXPERT documented in this encounter Plan of Treatment Upcoming Encounters Date Type Department Care Team (Late st Contact Info) Description 07/11/2024 10:30 AM ACCOUNT RESOLUTION EXPERT Office Visit [facility] Ger[facility]s [address] [place] [phone] Liza Morrow MD [address] [place] [address] 07/16/2024 10:00 AM ACCOUNT RESOLUTION EXPERT Office Visit [facility] - Ophthalmology [address] [place] [phone] Shahriar Young MD [address] [place] [address] [place] [address] documented as of this encounter Visit Diagnoses Diagnosis CAD in [place] artery- Primary Coronary atherosclerosis of [place] coronary artery Dyslipidemia Other and unspecified hyperlipidemia Essential hypertension, benign Stented coronary artery Postsurgical percutaneous transluminal coronary angioplasty status documented in this encounter Care Teams Infection Prevention Practitioner Relationship Specialty Start Date End Date Wesley Em MD PCP - General Internal Medicine 09/20/12 documented as of this encounter
--- OUTSIDE RECORDS SUMMARY | 2024-06-18 19:07 | XMS_ITS | Encounter Summary ---
Author Organization [facility] Address [address] [facility] [place] [address] Care Team Providers Care Clinical Therapist Name Role Phone Wesley Em MD Primary Care Provider Unavail able Reason for Visit * Cardiac (Routine) - Closed Specialty Diagnoses / Procedures Referred By Contac t Referred To Contact Radiology Diagnoses CAD in [place] artery Stented coronary artery Dyslipidemia Essential hypertension, benign Procedures STRESS TEST LEXISCAN ([place]CLEAR) [place] [address] [place] [address] [address] [address]-Mob [address] [facility] [address] [place] [address] Referral ID Status Reason Start Date Expiration Date Visits Re quested Visits Authorized [id number] Closed 11/18/2015 05/16/2016 2 2 Encounter Details Date Type Department Care Team (Latest Contact Info) Description 11/23/2015 9:38 AM CDT - 11/23/2015 11:59 PM CDT Hospital Encounter [facility] [address] [place] [address] [place] [address] [place] [address] Discharge Disposition: Home or Self [...] 5 mg by mouth once daily. B Atsobee-L-Lcmzr Acid (STRESS FORMULA PO) Take by mouth 2 times daily. 04/18/2024 cloNIDine (CATAPRES) 0.2 MG tablet Take 0.2 mg by mouth 2 times daily. 06/01/2018 clopidogrel (PLAVIX) 75 MG tabletIndications:CAD (coronary artery disease) Take 1 Tab by mouth once daily. 30 Tab 11 09/21/2012 04/18/2024 fluticasone propionate (FLONASE) 50 MCG/ACT nasal spray [place] 2 Sprays into each nostril once daily. [...] st Contact Info) Description 07/11/2024 10:30 AM ENVIRONMENTAL ADVISER Office Visit [facility] - Geriatrics [address] [place] [address], [place] [phone] Liza Morrow MD [address] [place] [address]. [place] [address] 07/16/2024 10:00 AM ENVIRONMENTAL ADVISER Office Visit [facility] - Ophthalmology [address] [place] [address], [place] [phone] Shahriar Young MD [address] [place] [address] [place] [address] documented as of this encounter Procedures Procedure Name Priority Date/Time Associated Diagnosis Comments STRESS TEST LEXISCAN (NUCLEAR) Routine 11/23/2015 10:56 AM CDT Atherosclerosis of [place] coronary artery of [place] heart, angina presence unspecified documented in this [...] By: ? Overread By: GARTH MILLAN MD [facility] STRESS 11/23/2015 10:5 6 AM CDT 11/23/2015 11:56 AM CDT Garth Millan MD CARDIAC SERVICES ORD ERABLES [facility] STRESS documented in this encounter Visit Diagnoses Diagnosis Atherosclerosis of [place] coronary artery of [place] heart, angina presence unspecified- Primary documented in [...] override documented in this encounter Care Teams Clinical Therapist Relationship Specialty Start Date End Date Wesley Em MD PCP - General Internal Medicine 09/20/12 documented as of this encounter
--- OUTSIDE RECORDS SUMMARY | 2024-06-18 19:07 | XMS_ITS | Clinical Summary ---
Author Organization [facility] Address [address] [place] [address]. [place], [place] [address] [place] [address] Care Team Providers Care Plastics Patternmaker Name Role Phone Bijal Galindo MD Unavailable [phone] Encounters Date Type Department Care Team Description 06/18/2024 Telephone [facility] [address] [place], [place] [phone] Fariba Odell, heating and refrigeration inspector from Last 3 Months Social History Tobacco [...] st Contact Info) Description 07/11/2024 1:[address] OF [address] Office Visit [facility], [facility] [address] [place], [place] [phone] Chavo Rich MD [facility]. [facility] [address] [place], [place] [id number] Health Maintenance Due Date Last Done Comments [...] patient's age to complete this topic Insurance [facility] MEDICARE Care Teams Plastics Patternmaker Relationship Specialty Start Date End Date Bijal Galindo MD [address] [place] [phone] Referring Physician CARDIOVASCULAR DISEASE 04/23/24
--- OUTSIDE RECORDS SUMMARY | 2024-06-18 19:07 | XMS_ITS | Encounter Summary ---
Author Organization [facility] Address [address] [place] [address] Care Team Providers Care Defense Travel Administrator Name Role Phone Wesley Em MD Primary Care Provider Unavail able Reason for Visit * Reason Comments Follow-up 6 month Coronary Artery Disease Encounter Details Date Type Department Care Team (Late st Contact Info) Description 05/30/2017 1:30 PM MARINE SURVEYOR Office Visit [facility] [address] [place] [address] Fariba Koenig, TREATMENT SUPERVISOR-[employer] [address] [facility] [address] [place] [address] CAD in [place] artery (Primary Dx); Essential hypertension, benign; Dyslipidemia [...] Comments Blood Pressure 134/67 05/30/2017 1:39 PM MARINE SURVEYOR Pulse 68 05/30/2017 1:39 PM MARINE SURVEYOR Temperature - - Respiratory Rate 16 05/30/2017 1:39 PM MARINE SURVEYOR Oxygen Saturation - - Inhaled Oxygen Concentration - - Weight 86.2 kg (190 lb) 05/30/2017 1:39 PM MARINE SURVEYOR Height 175.3 cm (5' 9 ) 05/30/2017 1:39 PM MARINE SURVEYOR Body Mass Index 28.06 05/30/2017 1:39 PM MARINE SURVEYOR documented in this encounter Patient Instructions * Patient Instructions* KoenigFariba APRN-CNP - 05/30/2017 2:04 PM MARINE SURVEYOR Continue current medical therapy Increase activity level Follow a low cholesterol, low sodium, small portion diet NE SURVEYOR documented in this encounter Progress Notes * Fariba Koenig APRN-CNP - 05/30/2017 1:55 PM CST [facility] Heart Cardiology Progress Note Patient's Primary Care Physician: Wesley Em MD Primary Diesel Locomotive Firer: Garth Millan MD, [facility] Chief Complaint Patient presents with ??? [...] edema. 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 He [...] 2 times daily before meals. ??? B Wuknrpn-E-Zbmlw Acid (STRESS FORMULA PO) Take by mouth [...] WBC, HGB, HCT, PLTCOUNT in the last 06524 hours. No results for input(s): SODIUM, POTASSIUM, BUN, CREATININE, GLUCOSE in the last 95417 hours. No results for input(s): BNP in the last 15198 hours. No results for input(s): MAGMGDL in the last 99088 hours. No results for input(s): LDLCALC, HDL, TRIG in the last 34717 hours. No results for input(s): TSH in the last 06803 hours. Stress test 11/22/16: Mild fixed thinning [...] questions were answered. Thank you for asking [facility] Vascular to participate in the care of your patient. Please callmy office at [phone] with any questions or concerns. Fariba Koenig APRN-[employer]. No orders of the defined types were placed in this encounter. NE SURVEYOR documented in this encounter Plan of Treatment Upcoming Encounters Date Type Department Care Team (Late st Contact Info) Description 07/11/2024 10:30 AM MARINE SURVEYOR Office Visit [facility] - Geriatrics [address] [place] [address], [place] [address] Liza Morrow MD [address] [place] [address] 07/16/2024 10:00 AM MARINE SURVEYOR Office Visit [facility] [address] [place] [phone] Shahriar Young MD [address] [place] [address] DEPT [place] [address] documented as of this encounter Visit Diagnoses Diagnosis CAD in [place] artery- Primary Coronary atherosclerosis of [place] coronary artery Essential hypertension, benign Dyslipidemia Other and unspecified hyperlipidemia documented in this encounter Care Teams Defense Travel Administrator Relationship Specialty Start Date End Date Wesley Em MD PCP - General Internal Medicine 09/20/12 documented as of this encounter
--- OUTSIDE RECORDS SUMMARY | 2024-06-18 19:07 | XMS_ITS | Encounter Summary ---
Author Organization [facility] Address [address] [facility] [place] [address] Care Team Providers Care Power Plant Operator Name Role Phone Wesley Em MD Primary Care Provider Unavail able Reason for Visit * Reason Onset Date Comments Medication Clarification 09/20/2012 Encounter Details Date Type Department Care Team (Late st Contact Info) Description 09/20/2012 Telephone [facility] [address] [facility] [address] [place] [address] [place] [address] [facility] [address] [place] [address] Medication Clarification Social History Tobacco [...] st Contact Info) Description 07/11/2024 10:30 AM DATA CAPTURE CLERK Office Visit [facility] - Geriatrics [address] [place] [phone] Liza Morrow MD [address] [place] [address] 07/16/2024 10:00 AM DATA CAPTURE CLERK Office Visit [facility] - Ophthalmology [address] [place] [phone] Shahriar Young MD [address] [place] [address] [place] [phone] documented as of this encounter Visit Diagnoses Not on filedocumented in this encounter Care Teams Power Plant Operator Relationship Specialty Start Date End Date Wesley Em MD PCP - General Internal Medicine 09/20/12 documented as of this encounter
--- OUTSIDE RECORDS SUMMARY | 2024-06-18 19:07 | XMS_ITS | Encounter Summary ---
Author Organization [facility] Address [address] [facility] [place] [address] Care Team Providers Care Director It Project Name Role Phone Unavailable Primary Care Provider Unavailabl e Reason for Visit * Reason Onset Date Comments Scheduling 09/12/2012 Stent RCA Encounter Details Date Type Department Care Team (Late st Contact Info) Description 09/12/2012 Telephone [facility] [address] [facility] [address] [place] [address] [place] [address] [facility] [address] [place] [address] Scheduling (Stent RCA) Social History Tobacco Use Types Packs/Day Years Used Date Smoking Tobacco: Never Assessed Sex and Gender Information Value Date Recorded Sex Assigned at Not on file Gender Identity Not on file Sexual Orientation Not on file documented as of this encounter Miscellaneous Notes * Telephone Encounter - Tiffanie Crain MA - 09/12/2012 4:17 PM CDT Received fax from [facility] requesting a Cath be set up for pt per . Pt scheduled 132:30 pm @ [facility]. Pt aware of date, time, location, and prep. Medicare primary, NO AUTH needed. documented in this encounter Plan of Treatment Upcoming Encounters Date Type Department Care Team (Late st Contact Info) Description 07/11/2024 10:[address] SQL DEVELOPER Office Visit [facility]ician Group - Geriatrics [address] [place] [phone] Liza Morrow MD [address] [place] [address] 07/16/2024 10:[address] SQL DEVELOPER Office Visit [facility] - Ophthalmology [address] [place] [address], [place] [phone] Shahriar Young MD [address] [place] [address] [place] [phone] documented as of this encounter Visit Diagnoses Not on filedocumented in this encounter
--- OUTSIDE RECORDS SUMMARY | 2024-06-18 19:08 | XMS_ITS | Encounter Summary ---
Author Organization [facility] Address [address] [place] [address] Phone Care Team Providers Care Hydroblaster Name Role Phone Trey Pinedo MD Unavailable [phone] Christine Herzog MD Primary Care Provide r Albert Craft MD Unavailable [phone] Chintan Figueroa MD Unavailable [phone] Jameel Bloom DPM Unavailable [phone] Gadiel Genao MD Unavailable [phone] Encounter Details Date Type Department Care Team (Late st Contact Info) Description 01/03/2024 Telephone [facility] Oncology [address] [place] [address] Medical [address] [phone] Alla Huerta, NICAT Social History Tobacco Use [...] you attend chur ch or spiritism services? Patient declined 09/28/2022 Do you belong [...] file Legal Sex Male 6:00 PM WATER SERVER Gender Identity Not on file Sexual Orientation [...] ACO Care Management On track(2022 11:14 AM WATER SERVER) Sepideh Guo RN Note: Problem: Potential for [...] on filedocumented in this encounter Care Teams Hydroblaster Relationship Specialty Start Date End Date Christine Herzog MD [address] [facility] [address] [place] [address] PCP - General Internal Medicine 12/02/21 Trey Pinedo MD [address] [place] [address] [address] [place] [address] Consulting Physician Neurology 05/09/19 Albert Craft MD [address] [place] [address] [address] [place] [address] Consulting Physician Gastroenterology 03/11/22 Chintan Figueroa MD [address] [place] [address] [address] [place] [address] Consulting Physician Hematology and Oncology 03/11/22 Jameel Bloom DPM [address] [place] [address] Consulting Physician Orthotics 03/11/22 Gadiel Genao MD [address] [place] [address] Surgeon Vascular Surgery 03/11/22 documented as of this encounter
--- OUTSIDE RECORDS SUMMARY | 2024-06-18 19:08 | XMS_ITS | Clinical Summary ---
Author Organization [facility] Address [address] [place] [address] Care Team Providers Care Air Cargo Specialist Supervisor Name Role Phone Trey Pinedo MD Unavailable [phone] Christine Herzog MD Primary Care Provide r Albert Crfat MD Unavailable [phone] Chintan Figueroa MD Unavailable [phone] Jameel Bloom DPM Unavailable [phone] Gadiel Genao MD Unavailable Allergies Active Allergy [...] 5 mg tabletIndications :Coronary artery disease involving [place] coronary artery of [place] heart without angina pectoris,Essentia l hypertension,Paro xysmal [...] 6 months Encourage hydration Current use of assisted anticoagulation 023 PVC (premature ventricular contraction) 02/10/20 [...] for evaluation of vertigo Can try scopolamine [id number] for symptomatic relief Generalized weakness 12/09/2021 Assessment & Plan (12/09/2021 6:33 PM CDT): No signs of infection or fluid overload. Suspect weakness due to age related debility. Patient's son requests for patient to have home PT rather than outpatient PT contract associate manager consulted for the same. Continue PT [...] (11/12/2019): Added automatically from request for surgery [id number] Type 2 diabetes mellitus with hyperlipidemia Assessment [...] 05/20/2019 Assessment & Plan (08/16/2019 10:51 AM SOCIAL INSURANCE SPECIALIST): Uncontrolled HTN certainly a concern given hx of TIA, CAD. Education provided to him and of importance in HTN regimen. Assessment & Plan (05/20/2019 10:17 AM SOCIAL INSURANCE SPECIALIST): CT imaging detailed above demonstrating cerebrovascular arteriosclerosis [...] 05/08/2019 Assessment & Plan (05/20/2019 10:21 AM SOCIAL INSURANCE SPECIALIST): Chads Vasc score 3/9 with recent TIA, imaging all negative for acute stroke. Hx of CVD, CVA, CAD does recommending Pt to Cnt. Dual anti-platelet therapy for at least 3 months or can consider stepping down from Plavix only if recommended by county program technician, increasing atorvastatin 80 mg daily. History of noncompliance with medical treatment 05/08/2019 History of colon polyps 11/17/2018 Assessment & Plan (11/17/2018 11:24 AM CDT): Colonoscopy last year showed few adenoma polyps removed. Next colonoscopy will be 2020. Bladder stones 2017 Coronary artery disease invo lving [place] coronary artery of [place] heart without angina pectoris 2017 Assessment & [...] johanne Assessment & Plan (05/20/2019 10:19 AM SOCIAL INSURANCE SPECIALIST): Hx of CAD with stents, HLD, arteriosclerosis [...] needed Assessment & Plan (05/20/2019 10:22 AM SOCIAL INSURANCE SPECIALIST): Stable. Cnt. Current Nexium dosing. Assessment & Plan (11/17/2018 11:21 AM CDT): Patient is doing well on Nexium. Will continue the same. Polycythemia 07/07/2017 Assessment & Plan (03/22/2023 7:11 AM CDT): Continue following with hematology Assessment & Plan (07/07/2017 3:41 PM SOCIAL INSURANCE SPECIALIST): Patient is currently undergoing treatment per Hematology. He is concerned his blood counts may be drifting upward and request CBC today. Blood work will be drawn and results will be forwarded along to compass operator for review as well. Further direction pending [...] urology Assessment & Plan (05/20/2019 10:16 AM SOCIAL INSURANCE SPECIALIST): Asymptomatic and stable medication. Cnt. Proscar, Flomax. [...] monitor. Assessment & Plan (05/20/2019 10:21 AM SOCIAL INSURANCE SPECIALIST): Much improved with clonidine patch. Pt was [...] statin Assessment & Plan (05/20/2019 10:20 AM SOCIAL INSURANCE SPECIALIST): Increase Lipitor to 80 mg a day [...] 08/16/201910/24 Assessment & Plan (08/16/2019 10:50 AM SOCIAL INSURANCE SPECIALIST): Improving, but uncontrolled. Cont valsartan, metoprolol and adding clonidine patch back into regimen. New script written for BP machine D/T home machine inaccuracies. Sx to monitor for, report given to both him and . Repeat BMP in 1 month D/T recently starting valsartan. RTC next week as scheduled. History of recent hospitalization 05/20/2019 05/20/2019 Assessment & Plan (05/20/2019 10:11 AM SOCIAL INSURANCE SPECIALIST): Recent hospitalization records reviewed with labs and diagnostics all detailed above Hypertensive emergency 05/08/201905/20 Type 2 diabetes mellitus with hyperlipidemia 8 11/29/2018 Skin tear of left hand without complication 08/21/2017 2017 Assessment & Plan (08/21/2017 1:58 PM SOCIAL INSURANCE SPECIALIST): Patient has adequate supply Bactroban previously prescribed. [...] 08/15/2017 Assessment & Plan (08/21/2017 1:57 PM SOCIAL INSURANCE SPECIALIST): Resolved. There is no indication for additional antibiotics at the present time. Assessment & Plan (08/15/2017 12:08 PM SOCIAL INSURANCE SPECIALIST): Patient was encouraged to apply topical antibiotic [...] 08/21/2017 Assessment & Plan (08/15/2017 12:07 PM SOCIAL INSURANCE SPECIALIST): Patient was encouraged to apply topical Bactroban [...] 07/07/20172017 Assessment & Plan (07/07/2017 3:40 PM SOCIAL INSURANCE SPECIALIST): Patient has an abrasion on the plantar [...] 2017 Assessment & Plan (07/07/2017 3:40 PM SOCIAL INSURANCE SPECIALIST): I recommended we proceed with x-ray of the sacrum and coccyx to rule out underlying fracture. Further direction pending x-ray results. Sebaceous cyst 06/11/2017 2017 Assessment & Plan (06/11/2017 5:14 PM SOCIAL INSURANCE SPECIALIST): Discussed with the patient the results. Patient [...] 02/26/2020 Assessment & Plan (05/20/2019 10:16 AM SOCIAL INSURANCE SPECIALIST): Closely by . Next EGD scheduled for 2020. Cnt. Nexium therapy prior advised. 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 Next EGD should be in year 2020 for surveillance. Coronary artery disease invo lving [place] heart without angina pectoris 12/26/2016 2017 Type 2 diabetes mellitus 11/16/2013 Overview (10/05/2016): DMII WO CMP NT ST UNCNTR Chronic obstructive pulmonary disease 11/16/2013 2017 Overview (10/07/2016): CHR AIRWAY OBSTRUCT NEC Encounters Date Type Department Care Team Description 05/16/2024 2:30 PM SOCIAL INSURANCE SPECIALIST Infusion [address] [place] [address] Polycythemia (Primary Dx) 05/16/2024 2:15 PM SOCIAL INSURANCE SPECIALIST Lab [address] [place] [address] Polycythemia 03/21/2024 2:30 PM CDT Infusion [facility] [address] [place] [address] Polycythemia 03/21/2024 2:15 PM CDT Lab [facility] [address] [place] [address] Polycythemia from Last 3 Months Immunizations Name [...] Brother Andrew Zuniga Alzheimer's disease Father Juliano Zuniag Alzhe gopal's Disease; Memory loss Father Juliano [...] often do you attend chur ch or orthodoxy services? Patient declined 09/28/2022 Do you belong [...] on file Legal Sex Male 6:00 PM SOCIAL INSURANCE SPECIALIST Gender Identity Not on file Sexual Orientation Straight 01/23/2021 10 :16 PM CDT Obstetrics History Last Filed Vital Signs Vital Sign Reading Time Taken Comments Blood Pressure 112/68 05/16/2024 4:10 PM SOCIAL INSURANCE SPECIALIST Pulse 56 05/16/2024 4:10 PM SOCIAL INSURANCE SPECIALIST Temperature 36.3 ??C (97.4 ??F) 05/16/2024 2:45 PM CS T Respiratory Rate 18 05/16/2024 4:10 PM SOCIAL INSURANCE SPECIALIST Oxygen Saturation 100% 05/16/2024 4:10 PM SOCIAL INSURANCE SPECIALIST Inhaled Oxygen Concentration - - Weight 90.4 [...] ACO Care Management On track(2022 11:14 AM SOCIAL INSURANCE SPECIALIST) Sepideh Guo, SUE Note: Problem: Potential for [...] medication regimen. Medical Devices Implanted Type Area Calciner Operator Device Identifier Shelf Expiration Date Model / Serial / Lot Meggan-09/04/2012 Implanted:09/04 (Quantity not on file) Coronary Procedures Procedure Name Priority Date/Time Associated Diagnosis Comments DIFFERENTIAL AUTO Routine 05/16/2024 2:4 5 PM SOCIAL INSURANCE SPECIALIST Polycythemia CBC WITH AUTO DIFFERENTIAL Routine 05/16/2024 2:45 PM SOCIAL INSURANCE SPECIALIST Polycythemia DIFFERENTIAL AUTO Routine 03/21/2024 2:3 5 [...] Read Routine (OP Routine) 09/09/2020 1:02 PM SOCIAL INSURANCE SPECIALIST History of tobacco abuse Encounter for screening for lung cancer DIABETIC EYE EXAM Routine 02/03/2020 COLONOSCOPY 01/09/2018 8:46 AM CDT DIABETES FOOT EXAM Routine 08/18/2016 HEPATITIS C SCREENING Routine 06/17/2016 from Last 3 Months or Most Recently Relevant to Health Maintenance Results * Differential, auto (05/16/2024 2:45 PM SOCIAL INSURANCE SPECIALIST) Neutrophil abs 4.7 1.5 - 6.5 K/cumm Comment:Testing performed by : [facility] [address], Medical Office [facility] [address], [place] [address] Imm gran abs 0.0 0.0 - 0.1 K/cumm [facility] ([place]) Comment:Testing performed by : [facility] [address], Medical Office [facility] [address], [place] [address] Lymphocyte abs 1.1 0.8 - 3.3 K/cumm [facility] ([place]) Comment:Testing performed by : [facility] [address], Medical Office [facility] [address], [place] [address] Monocyte abs 0.8 0.2 - 0.8 K/cumm [facility] ([place]) Comment:Testing performed by : [facility] [address], Medical Office [facility] [address], [place] [address] Eosinophil abs 0.2 0.0 - 0.5 K/cumm [facility] ([place]) Comment:Testing performed by : [facility] [address], Medical Office [facility] [address], [place] [address] Basophil abs 0.1 0.0 - 0.1 K/cumm [facility] ([place]) Comment:Testing performed by : [facility] [address], Medical Office [facility] [address], [place] [address] Neutrophil pct 68.4 % [facility] ([place]) Comment: Interpretive Data Percent cell count reference ranges are not reported, since discordance with absolute values may lead to misinterpretation of CBC data. Current Interpretive Data was last revised on 2022. Testing performed by: [facility] [address], Medical Office [facility] [address], [place] [address] Imm gran pct 0.0 % [facility] ([place]) Comment: Interpretive Data Percent cell count reference ranges are not reported, since discordance with absolute values may lead to misinterpretation of CBC data. Current Interpretive Data was last revised on 2022. Testing performed by: [facility] [address], Medical Office [facility] [address], [place] [address] Lymphocyte pct 16.6 % [facility] ([place]) Comment: Interpretive Data Percent cell count reference ranges are not reported, since discordance with absolute values may lead to misinterpretation of CBC data. Current Interpretive Data was last revised on 2022. Testing performed by: [facility] [address], Medical Office [facility] [address], [place] [address] Monocyte pct 11.0 % [facility] ([place]) Comment: Interpretive Data Percent cell count reference ranges are not reported, since discordance with absolute values may lead to misinterpretation of CBC data. Current Interpretive Data was last revised on 2022. Testing performed by: [facility] [address], Medical Office [facility] [address], [place] [address] Eosinophil pct 2.2 % [facility] ([place]) Comment: Interpretive Data Percent cell count reference ranges are not reported, since discordance with absolute values may lead to misinterpretation of CBC data. Current Interpretive Data was last revised on 2022. Testing performed by: [facility] [address], Medical Office [facility] [address], [place] [address] Basophil pct 1.8 % [facility] ([place]) Comment: Interpretive Data Percent cell count reference ranges are not reported, since discordance with absolute values may lead to misinterpretation of CBC data. Current Interpretive Data was last revised on 2022. Testing performed by: [facility] [address], Medical Office [facility] [address], [place] [address] Blood 05/16/2024 2:45 PM SOCIAL INSURANCE SPECIALIST 05/16/2024 2:49 PM SOCIAL INSURANCE SPECIALIST Bronwyn Nava NP LAB BLOOD ORDERABLES Final Result [facility] ([place]) 1 [facility] [place] [address] * (ABNORMAL) CBC with auto differential (05/16/2024 2:45 PM SOCIAL INSURANCE SPECIALIST) WBC 6.6 3.8 - 9.9 K/cumm Comment:Testing performed by : [place], [address] Hgb 14.3 13.0 - 17.5 g/dL [facility] ([place]) Comment:Testing performed by : [place], [address] Hct 48.5 38.9 - 50.3 % [facility] ([place]) Comment:Testing performed by : [facility], [place], [address] Plt 197 150 - 400 K/cumm [facility] ([place]) Comment:Testing performed by : [place], [address] MPV 11.1 9.1 - 12.3 fL [facility] ([place]) Comment:Testing performed by : [place], [address] RBC 6.22(H) 4.30 - 5.80 M/cumm [facility] ([place]) Comment:Testing performed by : [place], [address] MCV 78.0(L) 81.3 - 96.4 fL [facility] ([place]) Comment:Testing performed by : [place], [address] MCH 23.0(L) 27.1 - 33.3 pg [facility] ([place]) Comment:Testing performed by : [place], [address] MCHC 29.5(L) 32.3 - 35.7 g/dL [facility] ([place]) Comment:Testing performed by : [place], [address] RDW CV 18.8(H) 11.1 - 14.9 % [facility] ([place]) Comment:Testing performed by : [place], [address] RDW SD 50.4(H) 35.7 - 48.1 fL [facility] ([place]) Comment:Testing performed by : [facility], [place], [address] NRBC abs Not Measured 0.00 - 0.01 K/cumm [facility] ([place]) Comment:Testing performed by : [facility], [facility], [place], [address] Blood 05/16/2024 2:45 PM SOCIAL INSURANCE SPECIALIST 05/16/2024 2:49 PM SOCIAL INSURANCE SPECIALIST Bronwyn Nava WOOD ROOM SUPERVISOR LAB BLOOD ORDERABLES Final Result [facility] ([place]) 1 [facility] [place] [address] * Differential, auto (03/21/2024 2:35 PM CDT) Neutrophil abs 4.3 1.5 - 6.5 K/cumm Comment:Testing performed by : [facility] [address], Medical Office [facility] [address], [place] [address] Imm gran abs 0.0 0.0 - 0.1 K/cumm [facility] ([place]) Comment:Testing performed by : [facility] [address], Medical Office [facility] [address], [place] [address] Lymphocyte abs 1.2 0.8 - 3.3 K/cumm [facility] ([place]) Comment:Testing performed by : [facility] [address], Medical Office [facility] [address], [place] [address] Monocyte abs 0.7 0.2 - 0.8 K/cumm [facility] ([place]) Comment:Testing performed by : [facility] [address], Medical Office [facility] [address], [place] [address] Eosinophil abs 0.2 0.0 - 0.5 K/cumm [facility] ([place]) Comment:Testing performed by : [facility] [address], Medical Office [facility] [address], [place] [address] Basophil abs 0.1 0.0 - 0.1 K/cumm [facility] ([place]) Comment:Testing performed by : [facility] [address], Medical Office [facility] [address], [place] [address] Neutrophil pct 65.4 % [facility] ([place]) Comment: Interpretive Data Percent cell count reference ranges are not reported, since discordance with absolute values may lead to misinterpretation of CBC data. Current Interpretive Data was last revised on 2022. Testing performed by: [facility] [address], Medical Office [address], [place] [address] Imm gran pct 0.3 % [facility] ([place]) Comment: Interpretive Data Percent cell count reference ranges are not reported, since discordance with absolute values may lead to misinterpretation of CBC data. Current Interpretive Data was last revised on 2022. Testing performed by: [facility] [address], Medical Office [address], [place] [address] Lymphocyte pct 19.0 % [facility] ([place]) Comment: Interpretive Data Percent cell count reference ranges are not reported, since discordance with absolute values may lead to misinterpretation of CBC data. Current Interpretive Data was last revised on 2022. Testing performed by: [facility] [address], Medical Office [address], [place] [address] Monocyte pct 11.1 % [facility] ([place]) Comment: Interpretive Data Percent cell count reference ranges are not reported, since discordance with absolute values may lead to misinterpretation of CBC data. Current Interpretive Data was last revised on 2022. Testing performed by: [facility] [address], Medical Office [address], [place] [address] Eosinophil pct 2.8 % [facility] ([place]) Comment: Interpretive Data Percent cell count reference ranges are not reported, since discordance with absolute values may lead to misinterpretation of CBC data. Current Interpretive Data was last revised on 2022. Testing performed by: [facility] [address], Medical Office [address], [place] [address] Basophil pct 1.4 % [facility] ([place]) Comment: Interpretive Data Percent cell count reference ranges are not reported, since discordance with absolute values may lead to misinterpretation of CBC data. Current Interpretive Data was last revised on 2022. Testing performed by: [facility] [address], Medical Office [facility] [address], [place] [address] Blood 03/21/2024 2:35 PM CDT 03/21/2024 2:36 PM CDT Bronwyn Nava WOOD ROOM SUPERVISOR LAB BLOOD ORDERABLES Final Result [facility] ([place]) 1 [facility] [place] [address] * (ABNORMAL) CBC with auto differential (03/21/2024 2:35 PM CDT) WBC 6.5 3.8 - 9.9 K/cumm Comment:Testing performed by : [facility] [address], Medical Office [facility] [address], [place] [address] Hgb 12.9(L) 13.0 - 17.5 g/dL [facility] ([place]) Comment:Testing performed by : [facility] [address], Medical Office [facility] [address], [place] [address] Hct 43.2 38.9 - 50.3 % [facility] ([place]) Comment:Testing performed by : [facility] [address], Medical Office [facility] [address], [place] [address] Plt 222 150 - 400 K/cumm [facility] ([place]) Comment:Testing performed by : [facility] [address], Medical Office [facility] [address], [place] [address] MPV 9.6 9.1 - 12.3 fL [facility] ([place]) Comment:Testing performed by : [facility] [address], Medical Office [facility] [address], [place] [address] RBC 5.64 4.30 - 5.80 M/cumm [facility] ([place]) Comment:Testing performed by : [facility] [address], Medical Office [facility] [address], [place] [address] MCV 76.6(L) 81.3 - 96.4 fL [facility] ([place]) Comment:Testing performed by : [facility] [address], Medical Office [facility] [address] [facility] [address], [place] [address] MCH 22.9(L) 27.1 - 33.3 pg [facility] ([place]) Comment:Testing performed by : [facility] [address], Medical Office [facility] [address], [place] [address] MCHC 29.9(L) 32.3 - 35.7 g/dL [facility] ([place]) Comment:Testing performed by : [facility] [address], Medical Office [facility] [address], [place] [address] RDW CV 17.1(H) 11.1 - 14.9 % [facility] ([place]) Comment:Testing performed by : [facility] [address], Medical Office [facility] [address], [place] [address] RDW SD 46.5 35.7 - 48.1 fL [facility] ([place]) Comment:Testing performed by : [facility] [address], Medical Office [facility] [address], [place] [address] NRBC abs Not Measured 0.00 - 0.01 K/cumm [facility] ([place]) Comment:Testing performed by : [facility] [address], Medical Office [facility] [address], [place] [address] Blood 03/21/2024 2:35 PM CDT 03/21/2024 2:36 PM CDT Bronwyn Nava WOOD ROOM SUPERVISOR LAB BLOOD ORDERABLES Final Result [facility] ([place]) 1 [facility] Department [place] [address] * (ABNORMAL) eGFR (03/02/2024 10:13 AM CDT) [...] MD LAB BLOOD ORDERABLES Final R esult [id number] ([place]) 1 [facility] Department [place] [address] * Lipid panel (03/02/2024 10:13 [...] 03/02/2024 11:10 AM CDT fax results to [phone] us Bijal Galindo MD LAB BLOOD ORDERABLES Final R esult Performing Organization Address [facility] Co de Phone Number [facility] ([place]) 1 [facility] Department [place] [address] * (ABNORMAL) Albumin Creatinine Ratio, Urine (12/14/2023 9:36 AM CDT) Albumin Ur 135.9 mg/L Comment: Interpretive Data No reference range established. Current interpretive data was last revised 2018. Testing performed by: [facility], [address] [place] [address]., [address] Creatinine Ur 247.3 mg/dL [facility] ([place]) Comment: Interpretive Data No reference range established. Current interpretive data was last revised 2018. Testing performed by: [facility], [address] [place] [address]., [address] Albumin Creatinine Ratio, Ur 55(H) 1 - 29 mg/g [facility] ([place]) Comment:Testing performed by : [facility], [address] [place] [address]., [address] Urine 12/14/2023 9:36 AM CDT 12/14/2023 1:31 PM CDT Narrative [facility] ([place]) - 12/14/2023 2:34 PM CDT Non fasting us Christine Herzog MD LAB URINE ORDERABLES Final Result Performing Organization Address City/[facility]/ZIP Co de Phone Number [facility] ([place]) 1 [facility] [place] [address] * (ABNORMAL) Hemoglobin A1c (12/14/2023 9:36 AM CDT) Hgb A1C 6.7(H) 4.0 - 5.6 % Estimated Average Glucose 146 mg/dL [facility] ([place]) Comment: The ADA recommends reporting an estimated Average Glucose (eAG) with all Hemoglobin A1c results using the equation derived from a study of 507 normal and diabetic adults. ??Minority populations were underrepresented and children were not included. ?? (Diabetes Care 31:2505-2134, 2008). ??The eAG is not equivalent to a fasting glucose. Blood 12/14/2023 9:36 AM CDT 12/14/2023 10:33 AM CDT Narrative [facility] ([place]) - 12/14/2023 11:02 AM CDT fasting us Christine Herzog MD LAB BLOOD ORDERABLES Final Result [facility] ([place]) 1 [facility] Department [place] [address] * PSA screen (01/26/2023 12:39 PM CDT) PSA-Total 2.31 <=6.20 ng/mL [facility] ([place]) Comment: Interpretive Data ?AGE ? SEX ?REFERENCE INTERVAL 0 minutes-150 years ?Female ?None 0 minutes-49 years ? Male ?None ? 50-59 years ? Male ?0-3.90 ? 60-69 years ? Male ?0-5.40 ? 70-79 years ? Male ?0-6.20 ? 80-150 years ?Male ?0-6.20 The [employer] PSA Total assay procedure was used. Results from different manufacturers or methods may not be comparable. Serial testing should be performed using the same method. Current interpretive data last revised 21. Blood 01/26/2023 12:3 9 PM CDT 01/26/2023 1:56 PM CDT us Christine Herzog MD LAB BLOOD ORDERABLES Final Result [facility] ([place]) 1 [facility] Department [place] [address] * CT Chest Abdomen Pelvis WO Contrast [...] PM T: ??12/08/2021 10:00 PM Report ID: [id number] Reading Location: ??[id number] Procedure Note Trey Siegel MD - 12/08/2021 [...] Trey Siegel M.D. ML: ML Report ID: [id number] Reading Location: [place] [address] Prema Zaman MD IMG CT PROCEDURES Final Result * CT Lung Cancer Screening (09/09/2020 1:02 PM SOCIAL INSURANCE SPECIALIST) Anatomical Region Laterality Modality Chest N/A Computed Tomogra phy 09/09/2020 1:15 PM SOCIAL INSURANCE SPECIALIST Impressions 09/09/2020 1:19 PM SOCIAL INSURANCE SPECIALIST LUNG RADS CATEGORY 1 WITH NO SUSPICIOUS PULMONARY NODULES. COPD. ATHEROSCLEROSIS. CONTINUED [address] LOW-DOSE CT SURVEILLANCE Electronically signed by: Shorty Carvalho M.D. Narrative 09/09/2020 1:19 PM SOCIAL INSURANCE SPECIALIST EXAMINATION: CT LUNG CANCER SCREENING dated 09/09/2020 1:00 PM HISTORY: 74-year-old man lung cancer screening. 25 pack-year history, quit smoking July 2008 TECHNIQUE: Low-dose noncontrast spiral CT of multiplanar reconstructions FINDINGS: Comparison with multiple priors most recently dated 02/14/2019. Butting Saw Operator radiograph once again demonstrates tortuous aorta with [...] with multiple priors most recently dated 02/14/2019. Butting Saw Operator radiograph once again demonstrates tortuous aorta with [...] by: Shorty Carvalho M.D. Wesley Em MD [facility] CT PROCEDURES Final Result * Diabetic Eye Exam (02/03/2020) Historical Provider [facility] Edited Result - Final * COLONOSCOPY (01/09/2018 8:46 AM CDT) Anatomical Region Laterality Modality Other Narrative Procedure Note Albert Craft MD - 01/09/2018 8:[address] [facility] Patient Name: Verna Zuniga Procedure Date: 01/09/2018 8:46 AM Date of : 1945 Admit Type: Outpatient Age: 72 Gender: Male Attending MD: Albert Craft MD Room: [facility] ENDOSCOPY CAPSULE Note Status: Finalized Patient Profile: [...] passed under direct vision.The Pediatric Colonoscope PCF-H190L [id number] was introduced through the anus and advanced [...] 8:46 AM Procedure Code(s): --- Professional --- 73303, Colonoscopy, flexible; with removal of tumor(s), polyp(s), or other lesion(s) by snare technique 97460, 59, Colonoscopy, flexible; with biopsy, single or multiple Diagnosis Code(s): --- Professional --- Z12.11, Encounter for screening for malignant neoplasm of colon D12.0, Benign neoplasm of cecum D12.2, Benign neoplasm of ascending colon D12.4, Benign neoplasm of descending colon K64.8, Other hemorrhoids CPT copyright 2017 [employer]. All rights reserved. The codes documented in this report are preliminary and upon supervisor air conditioning installer reviewmay be revised to meet current compliance requirements. Recognized by the [employer] for promoting quality in endoscopy Albert Craft MD ENDOSCOPY PROCEDURES Final Result * DIABETES FOOT EXAM (08/18/2016) Diabetic Foot Exam Unknown Historical Provider HEALTH MAINTENANCE Final Result * HEPATITIS C SCREENING (06/17/2016) Pathologist [facility] HEP C Normal Historical Provider HEALTH MAINTENANCE Final Result from Last 3 Months or Most Recently Relevant to Health Maintenance Insurance MEDICARE [facility] MEDICARE Member Subscriber Plan / Payer ( fective 2011-) Name:VERNA ZUNIGA Member ID:[id number] Relation to Subscriber:Self Name:Verna Zuniga Subscriber ID:[id number] Payer ID:[id number] Group ID:Not on file Type:MEDICARE TRADITIONAL Address: [place] [phone] [facility] MEDICARE Member Subscriber Plan / Payer ( fective 2011-Present) Name:Verna Zuniga Member ID:[id number] Relation to Subscriber:Self Name:Verna Zuniga Subscriber ID:[id number] Payer ID:[id number] Group ID:Not on file Type:MEDICARE TRADITIONAL Address: [place] [phone] [facility] [address] [id number] MEDICARE [facility] Advance Directives For more information, please contact: [phone] Documents on File Type Date Recorded Patient Hose Suspender Cutter Expl anation ADVANCE DIRECTIVE 09/16/2016 12:00 AM ENRIKE R OF SOLE CONDITIONER FINANCIAL/MEDICAL * Full Code (Latest Code Status [...] 7:10 AM 01/09/2018 12:30 PM Care Teams Air Cargo Specialist Supervisor Relationship Specialty Start Date End Date Christine Herzog MD [address] [place] [address] [address] [place] [address] PCP - General Internal Medicine 12/02/21 Trey Pinedo MD [address] [place] [address] [address] [place] [address] Consulting Physician Neurology 05/09/19 Albert Craft MD [address] [place] [address] [address] [place] [address] Consulting Physician Gastroenterology 03/11/22 Chintan Figueroa MD [address] [place] [address] [address] [place] [address] Consulting Physician Hematology and Oncology 03/11/22 Jameel Bloom DPM [address] [place] [address] Consulting Physician Orthotics 03/11/22 Gadiel Genao MD [address] [place] [address] Surgeon Vascular Surgery 03/11/22
--- OUTSIDE RECORDS SUMMARY | 2024-06-18 19:08 | XMS_ITS | Encounter Summary ---
Author Organization [facility] Address [address] [place] [address] Phone Care Team Providers Care Volunteer Recruiter Name Role Phone Trey Pinedo MD Unavailable Christine Herzog MD Primary Care Provide r Albert Craft MD Unavailable [phone] Chintan Figueroa MD Unavailable [phone] Jameel Bloom DPM Unavailable [phone] Gadiel Genao MD Unavailable Encounter Details Date Type Department Care Team (Late st Contact Info) Description 12/27/2023 Orders Only [facility] Physicians [facility] Oncology [address] [place] [address] Office [facility] [address] [phone] Chintan Figueroa MD [address] [place] [id number] Polycythemia (Primary Dx) Social History Tobacco Use [...] any clubs o r organizations such as yazdanism groups, unions, fraternal or athletic groups, or [...] on file 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 Author GULSHAN General Goal - Patient schedules and keeps appointments with all recommended providers ACO Care Management On track(2022 11:14 AM WELLFIELD TECHNICIAN) Sepideh Guo RN Note: Problem: Potential for [...] 01/05/2024 documented in this encounter Care Teams Volunteer Recruiter Relationship Specialty Start Date End Date Christine Herzog MD [address] [place] [address] [place] [address] PCP - General Internal Medicine 12/02/21 Trey Pinedo MD [address] [place] [address] [address] [place] [address] Consulting Physician Neurology 05/09/19 Albert Craft MD [address] [place] [address] [address] [place] [address] Consulting Physician Gastroenterology 03/11/22 Chintan Figueroa MD [address] [place] [address] [address] [place] [address] Consulting Physician Hematology and Oncology 03/11/22 Jameel Bloom DPM [address] [place] [address] Consulting Physician Orthotics 03/11/22 Gadiel Genao MD [address] [place] [address] Surgeon Vascular Surgery 03/11/22 documented as of this encounter
--- OUTSIDE RECORDS SUMMARY | 2024-06-18 19:08 | XMS_ITS | Encounter Summary ---
Author Organization [facility] Address [address] [place] [address] Care Team Providers Care Computer Equipment Installer Name Role Phone Trey Pinedo MD Unavailable [phone] Christien Herzog MD Primary Care Provide r Albert Craft MD Unavailable [phone] Chintan Figueroa MD Unavailable [phone] Jameel Bloom DPM Unavailable [phone] Gadiel Genao MD Unavailable [phone] Encounter Details Date Type Department Care Team (Latest Contact Info) Description 01/18/2024 5:39 PM CDT - 01/18/2024 11:59 PM CDT Hospital Encounter [address] [address] Urinary incontinence, unspecified type Discharge Disposition: Discharge [...] on file 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 documented in this encounter Plan of Treatment Not on file documented as of this encounter Goals Goal Patient Goal Type Associated Problems Recent Progress Patient-Stated? Author GULSHAN General Goal - Patient schedules and keeps appointments with all recommended providers ACO Care Management On track(2022 11:14 AM RIDER TICKET WORKER) Sepideh Guo RN Note: Problem: Potential for [...] current clinical standards) Comment:Testing performed by : [facility], [address] [place]., [address] Organism (CLINICALLY INSIGNIFICANT GROWTH CERNER CH Urine, clean voided 01/18/2024 5:39 PM CDT 01/19/2024 9:39 AM CDT Narrative RUBENS GANT - 01/20/2024 2:27 PM CDT Testing performed by [facility] Microbiology Laboratory ([phone]) Loida Sánchez BUCKLE ASSEMBLER LAB MICROBIOLOGY - GENERAL ORDER KATHLEEN Final Result [facility] [address] Department [place] [address] documented in this encounter Visit Diagnoses Diagnosis Urinary incontinence, unspecified type documented in this encounter Care Teams Computer Equipment Installer Relationship Specialty Start Date End Date Christine Herzog MD [address] [facility] [address] [place] [address] PCP - General Internal Medicine 12/02/21 Trey Pinedo MD [address] [place] [address] [address] [place] [address] Consulting Physician Neurology 05/09/19 Albert Craft MD [address] [place] [address] [address] [place] [address] Consulting Physician Gastroenterology 03/11/22 Chintan Figueroa MD [address] [place] [address] [place] [address] Consulting Physician Hematology and Oncology 03/11/22 Jameel Bloom DPM [address] [place] [address] Consulting Physician Orthotics 03/11/22 Gadiel Genao MD [address] [place] [address] Surgeon Vascular Surgery 03/11/22 documented as of this encounter
--- OUTSIDE RECORDS SUMMARY | 2024-06-18 19:08 | XMS_ITS | Encounter Summary ---
Author Organization [facility] Address [address] [place] [address] Phone Care Team Providers Care Rn Baby Name Role Phone Trey Pinedo MD Unavailable [phone] Christine Herzog MD Primary Care Provide r Albert Craft MD Unavailable [phone] Chintan Figueroa MD Unavailable [phone] Jameel Bloom DPM Unavailable [phone] aGdiel Genao MD Unavailable [phone] Encounter Details Date Type Department Care Team (Late st Contact Info) Description 01/05/2024 10:00 AM CDT Office Visit [facility] Physicians [facility] Oncology [address] [place] [address] Medical Office [address] [phone] Chintan Figueroa MD [address] [place] [address] [address] [place] [address] Polycythemia (Primary Dx) Social History Tobacco Use [...] often do you attend chur ch or judaism services? 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 Patient reported he established care with appeals representative, Dr. Hoskins who recommended regular phlebotomy to [...] Recent labs, radiology and pathology reviewed in [facility] ASSESSMENT: Secondary Erythrocytosis likely due to [...] Dasilva APRN- Nurse Practitioner Division of Oncology [address] [place] [address], [address] [place] [address] , ext, 1, ext 1 documented in [...] ACO Care Management On track(2022 11:14 AM HOLIDAY DETECTOR OPERATOR) Sepideh Guo, SUE Note: Problem: Potential [...] CBC with auto differential (05/16/2024 2:45 PM HOLIDAY DETECTOR OPERATOR) [facility] Signature WBC 6.6 3.8 - 9.9 K/cumm Comment:Testing performed by : [place], [address] Hgb 14.3 13.0 - 17.5 g/dL [facility] CAR[facility] ([place]) Comment:Testing performed by : [place], [address] Hct 48.5 38.9 - 50.3 % [facility] ([place]) Comment:Testing performed by : [facility], [place], [place], Plt 197 150 - 400 K/cumm [facility] ([place]) Comment:Testing performed by : [place], MPV 11.1 9.1 - 12.3 fL [facility] ([place]) Comment:Testing performed by : [place], RBC 6.22(H) 4.30 - 5.80 M/cumm [facility] ([place]) Comment:Testing performed by : [place], MCV 78.0(L) 81.3 - 96.4 fL [facility] ([place]) Comment:Testing performed by : [place], MCH 23.0(L) 27.1 - 33.3 pg [facility] ([place]) Comment:Testing performed by : [place], MCHC 29.5(L) 32.3 - 35.7 g/dL [facility] ([place]) Comment:Testing performed by : [place], RDW CV 18.8(H) 11.1 - 14.9 % [facility] ([place]) Comment:Testing performed by : [place], RDW SD 50.4(H) 35.7 - 48.1 fL [facility] ([place]) Comment:Testing performed by : [facility], [place], [place], NRBC abs Not Measured 0.00 - 0.01 K/cumm [facility] ([place]) Comment:Testing performed by : [place], [address] Blood 05/16/2024 2:45 PM HOLIDAY DETECTOR OPERATOR 05/16/2024 2:49 PM HOLIDAY DETECTOR OPERATOR Bronwyn Nava POLYMERIZATION HELPER LAB BLOOD ORDERABLES Final Result [facility] ([place]) 1 [facility] [place] [address] * (ABNORMAL) CBC with auto differential (03/21/2024 2:35 PM CDT) WBC 6.5 3.8 - 9.9 K/cumm Comment:Testing performed by : [facility] [address], Medical Office [address], [place] [address] Hgb 12.9(L) 13.0 - 17.5 g/dL [facility] ([place]) Comment:Testing performed by : [facility] [address], Medical Office [facility] [address], [place] [address] Hct 43.2 38.9 - 50.3 % [facility] ([place]) Comment:Testing performed by : [facility] [address], Medical Office [facility] [address], [place] [address] Plt 222 150 - 400 K/cumm [facility] ([place]) Comment:Testing performed by : [facility] [address], Medical Office [facility] [address], [place] [address] MPV 9.6 9.1 - 12.3 fL [facility] ([place]) Comment:Testing performed by : [facility] [address], Medical Office [facility] [address], [place] [address] RBC 5.64 4.30 - 5.80 M/cumm [facility] ([place]) Comment:Testing performed by : [facility] [address], Medical Office [facility] [address], [place] [address] MCV 76.6(L) 81.3 - 96.4 fL [facility] ([place]) Comment:Testing performed by : [facility] [address], Medical Office [address], [place] [address] MCH 22.9(L) 27.1 - 33.3 pg [facility] ([place]) Comment:Testing performed by : [facility] [address], Medical Office [address], [place] [address] MCHC 29.9(L) 32.3 - 35.7 g/dL [facility] ([place]) Comment:Testing performed by : [facility] [address], Medical Office [address], [place] [address] RDW CV 17.1(H) 11.1 - 14.9 % [facility] ([place]) Comment:Testing performed by : [facility] [address], Medical Office [facility] [address], [place] [address] RDW SD 46.5 35.7 - 48.1 fL [facility] ([place]) Comment:Testing performed by : [facility] [address], Medical Office [facility] [address], [place] [address] NRBC abs Not Measured 0.00 - 0.01 K/cumm [facility] ([place]) Comment:Testing performed by : [facility] [address], Medical Office [facility] [address], [place] [address] Blood 03/21/2024 2:35 PM CDT 03/21/2024 2:36 PM CDT Bronwyn Nava POLYMERIZATION HELPER LAB BLOOD ORDERABLES Final Result [facility] ([place]) 1 [facility] Department [place] [address] documented in this encounter Visit Diagnoses Diagnosis Polycythemia- Primary Polycythemia, secondary documented in this encounter Orders Appointment Requests Count Last Ordered Date Fi rst Ordered Date ONCBCN CLINIC APPOINTMENT REQUEST 1 024 documented in this encounter Care Teams Rn Baby Relationship Specialty Start Date End Date Christine Herzog MD 2 [facility] [address] [place] [address] PCP - General Internal Medicine 12/02/21 Trey Pinedo MD 4 [facility] [address] [place] [address] Consulting Physician Neurology 05/09/19 Ablert Craft MD [address] [place] [address] [address] [place] [address] Consulting Physician Gastroenterology 03/11/22 Chintan Figueroa MD [address] [place] [address] [address] [place] [address] Consulting Physician Hematology and Oncology 03/11/22 Jaemel Bloom DPM [address] [place] [address] Consulting Physician Orthotics 03/11/22 Gadiel Genao MD [address] [place] [address] Surgeon Vascular Surgery 03/11/22 documented as of this encounter
--- OUTSIDE RECORDS SUMMARY | 2024-06-18 19:08 | XMS_ITS | Encounter Summary ---
Author Organization [facility] Healthcare Address [address] [place] [address] Care Team Providers Care Ethologist Name Role Phone Trey Pinedo MD Unavailable [phone] Christine Herzog MD Primary Care Provide r Albert Craft MD Unavailable [phone] Chintan Figueroa MD Unavailable [phone] Jameel Bloom DPM Unavailable [phone] Gadiel Genao MD Unavailable [phone] Encounter Details Date Type Department Care Team (Late st Contact Info) Description 03/02/2024 10:00 AM CDT [address] [address] Social History Tobacco Use Types Packs/Day Years [...] often do you attend chur ch or sabianist services? 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 Author GULSHAN General Goal - Patient schedules and keeps appointments with all recommended providers ACO Care Management On track(2022 11:14 AM SHEET CUTTER) No Sepideh Hi RN Note: Problem: Potential [...] (ABNORMAL) eGFR (03/02/2024 10:13 AM CDT) Pathologist [facility] eGFR 57(L) >=60 mL/min/1. 73 m2 Comment: [...] BLOOD ORDERABLES Final R esult RUBENS CARMICHAEL ([place]) 1 [facility] Department of Laboratories [place], [place] [id number] * Differential, auto (03/02/2024 10:13 AM CDT) [...] Final R esult RUBENS CARMICHAEL ([place]) 1 [facility] Department [place] [address] * (ABNORMAL) CBC with auto differential (03/02/2024 10:13 AM CDT) [facility] WBC 6.1 3.8 - 9.9 K/cumm [...] Final R esult RUBENS CARMICHAEL ([place]) 1 [facility] [place] [address] * (ABNORMAL) Comprehensive metabolic panel (03/02/2024 10:13 AM CDT) [facility] Sodium 140 135 - 145 mmol/L [...] Final R esult [facility] ([place]) 1 [facility] Department [place] [address] * Lipid panel (03/02/2024 10:13 AM CDT) [...] 2018. Chol/HDL ratio 3 JEAN CARLOS CARMICHAEL ([place]) Blood 03/02/2024 10:1 3 AM CDT 03/02/2024 10:43 AM CDT Narrative [facility] ([place]) - 03/02/2024 11:10 AM CDT fax results to [phone] us Bijal Galindo MD LAB BLOOD ORDERABLES Final R esult [facility] CAR[facility] ([place]) 1 [facility] Department [place] [address] documented in this encounter Visit Diagnoses Not on filedocumented in this encounter Care Teams Ethologist Relationship Specialty Start Date End Date Christine Herzog MD [address] [facility] [address] [place] [address] PCP - General Internal Medicine 12/02/21 Trey Pinedo MD [address] [facility] [facility] [address] [place] [address] Consulting Physician Neurology 05/09/19 Albert Craft MD [address] [place] [address] Consulting Physician Gastroenterology 03/11/22 Chintan Figueroa MD [address] [place] [address] Consulting Physician Hematology and Oncology 03/11/22 Jameel Bloom DPM [address] [place] [address] Consulting Physician Orthotics 03/11/22 Gadiel Genao MD [address] [place] [address] Surgeon Vascular Surgery 03/11/22 documented as of this encounter
--- OUTSIDE RECORDS SUMMARY | 2024-06-18 19:08 | XMS_ITS | Encounter Summary ---
Author Organization [facility] Healthcare Address [address] [place] [address] Care Team Providers Care Plate Mill Mill Hand Name Role Phone Trey Pinedo MD Unavailable [phone] Christine Herzog MD Primary Care Provide r Albert Craft MD Unavailable [phone] Chintan Figueroa MD Unavailable [phone] Jameel Bloom DPM Unavailable [phone] Gadiel Genao MD Unavailable [phone] Encounter Details Date Type Department Care Team (Late st Contact Info) Description 03/21/2024 2:15 PM CDT Lab [address] [phone] Polycythemia Social History Tobacco Use Types Packs/Day [...] on file 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 [address], Medical Office [facility] [address], [place] [address] Imm gran abs 0.0 0.0 - 0.1 K/cumm [facility] ([place]) Comment:Testing performed by : [facility] [address], Medical Office [facility] [address], [place] [address] Lymphocyte abs 1.2 0.8 - 3.3 K/cumm [facility] ([place]) Comment:Testing performed by : [facility] [address], Medical Office [facility] [address], [place] [address] Monocyte abs 0.7 0.2 - 0.8 K/cumm [facility] ([place]) Comment:Testing performed by : [facility] [address], Medical Office [facility] [address], [place] [address] Eosinophil abs 0.2 0.0 - 0.5 K/cumm [facility] ([place]) Comment:Testing performed by : [facility] [address], Medical Office [facility] [address], [place] [address] Basophil abs 0.1 0.0 - 0.1 K/cumm [facility] ([place]) Comment:Testing performed by : [facility] [address], Medical Office [facility] [address], [place] [address] Neutrophil pct 65.4 % [facility] ([place]) Comment: Interpretive Data Percent cell count reference ranges are not reported, since discordance with absolute values may lead to misinterpretation of CBC data. Current Interpretive Data was last revised on 2022. Testing performed by: [facility] [address], Medical Office [address], [place] [address] Imm gran pct 0.3 % [facility] ([place]) Comment: Interpretive Data Percent cell count reference ranges are not reported, since discordance with absolute values may lead to misinterpretation of CBC data. Current Interpretive Data was last revised on 2022. Testing performed by: [facility] [address], Medical Office [address], [place] [address] Lymphocyte pct 19.0 % [facility] ([place]) Comment: Interpretive Data Percent cell count reference ranges are not reported, since discordance with absolute values may lead to misinterpretation of CBC data. Current Interpretive Data was last revised on 2022. Testing performed by: [facility] [address], Medical Office [address], [place] [address] Monocyte pct 11.1 % [facility] ([place]) Comment: Interpretive Data Percent cell count reference ranges are not reported, since discordance with absolute values may lead to misinterpretation of CBC data. Current Interpretive Data was last revised on 2022. Testing performed by: [facility] [address], Medical Office [facility] [address], [place] [address] Eosinophil pct 2.8 % [facility] ([place]) Comment: Interpretive Data Percent cell count reference ranges are not reported, since discordance with absolute values may lead to misinterpretation of CBC data. Current Interpretive Data was last revised on 2022. Testing performed by: [facility] [address], Medical Office [facility] [address], [place] [address] Basophil pct 1.4 % [facility] ([place]) Comment: Interpretive Data Percent cell count reference ranges are not reported, since discordance with absolute values may lead to misinterpretation of CBC data. Current Interpretive Data was last revised on 2022. Testing performed by: [facility] [address], Medical Office [address], [place] [address] Blood 03/21/2024 2:35 PM CDT 03/21/2024 2:36 PM CDT Bronwyn Gutierrezblaynesosa DIRECTOR OF ACCOUNTS PAYABLE LAB BLOOD ORDERABLES Final Result [facility] ([place]) 1 [facility] Department [place] [id number] * (ABNORMAL) CBC with auto differential (03/21/2024 2:35 PM CDT) WBC 6.5 3.8 - 9.9 K/cumm Comment:Testing performed by : [facility] [address], Medical Office [facility] [address], [place] [address] Hgb 12.9(L) 13.0 - 17.5 g/dL [facility] ([place]) Comment:Testing performed by : [facility] [address], Medical Office [facility] [address], [place] [address] Hct 43.2 38.9 - 50.3 % [facility] ([place]) Comment:Testing performed by : [facility] [address], Medical Office [facility] [address], [place] [address] Plt 222 150 - 400 K/cumm [facility] ([place]) Comment:Testing performed by : [facility] [address], Medical Office [facility] [address], [place] [address] MPV 9.6 9.1 - 12.3 fL [facility] ([place]) Comment:Testing performed by : [facility] [address], Medical Office [facility] [address], [place] [address] RBC 5.64 4.30 - 5.80 M/cumm [facility] ([place]) Comment:Testing performed by : [facility] [address], Medical Office [address], [place] [address] MCV 76.6(L) 81.3 - 96.4 fL [facility] ([place]) Comment:Testing performed by : [facility] [address], Medical Office [facility] [address], [place] [address] MCH 22.9(L) 27.1 - 33.3 pg [facility] ([place]) Comment:Testing performed by : [facility] [address], Medical Office [address], [place] [address] MCHC 29.9(L) 32.3 - 35.7 g/dL [facility] ([place]) Comment:Testing performed by : [facility] [address], Medical Office [facility] [address], [place] [address] RDW CV 17.1(H) 11.1 - 14.9 % [facility] ([place]) Comment:Testing performed by : [facility] [address], Medical Office [facility] [address], [place] [address] RDW SD 46.5 35.7 - 48.1 fL [facility] ([place]) Comment:Testing performed by : [facility] [address], Medical Office [facility] [address], [place] [address] NRBC abs Not Measured 0.00 - 0.01 K/cumm [facility] ([place]) Comment:Testing performed by : [facility] [address], Medical Office [facility] [address], [place] [address] Blood 03/21/2024 2:35 PM CDT 03/21/2024 2:36 PM CDT Bronwyn Nava DIRECTOR OF ACCOUNTS PAYABLE LAB BLOOD ORDERABLES Final Result [facility] ([place]) 1 [facility] Department [place] [address] documented in this encounter Visit Diagnoses Diagnosis Polycythemia Polycythemia, secondary documented in this encounter Orders Appointment Requests Count Last Ordered Date Fi rst Ordered Date ONCBCN LAB APPOINTMENT 1 03/21/2024 documented in this encounter Care Teams Plate Mill Mill Hand Relationship Specialty Start Date End Date Christine Herzog MD 2 [facility] [address] [place] [address] PCP - General Internal Medicine 12/02/21 Trey Pinedo MD 4 [facility] [address] [place] [address] Consulting Physician Neurology 05/09/19 Albert Craft MD [address] [place] [address] [address] [place] [address] Consulting Physician Gastroenterology 03/11/22 Chintan Figueroa MD [address] [place] [address] [address] [place], [place] [address], [place] [address] Consulting Physician Hematology and Oncology 03/11/22 Jameel Bloom DPM [address] [place] [address] Consulting Physician Orthotics 03/11/22 Gadiel Genao MD [address] [place] [address] Surgeon Vascular Surgery 03/11/22 documented as of this encounter
--- OUTSIDE RECORDS SUMMARY | 2024-06-18 19:08 | XMS_ITS | Encounter Summary ---
Author Organization [facility] Healthcare Address [address] [place] [address] Care Team Providers Care Game Trapper Name Role Phone Trey Pinedo MD Unavailable [phone] Christine Herzog MD Primary Care Provide r Albert Craft MD Unavailable [phone] Chintan Figueroa MD Unavailable [phone] Jameel Bloom DPM Unavailable [phone] Gadiel Genao MD Unavailable [phone] Reason for Referral * Consultation (Elective) - Authorized Specialty Diagnoses / Procedures Referred By Contdayami t Referred To Contact Gastroenterology Diagnoses Nausea Appetite loss Christine Herzog MD [address] [place] [address] [address] [place] [address] Phone: tel: fax: [facility] Gastroenterology at [address] [place] [address] Phone: tel: fax: Referral ID Status Reason Start Date Expiration Date Visits Requested Visits Authorized [id number] Authorized Specialty Services Required 12/14/2023 01/12/2025 1 1 Question Answer Please select the performing region: [facility] [[id number]] Please select the performing department: [facility] [place] [facility] [place] [facility] [place] [[id number]] # of visits: 1 Encounter Details Date Type Department Care Team (Late st Contact Info) Description 12/14/2023 Orders Only [facility] [place] [address] [place] [id number] Christine Herzog MD 2 [facility] [address] [place] [address] Nausea (Primary Dx); Appetite loss; Healthcare maintenance; [...] often do you attend chur ch or alevism services? 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 Gender Identity Not on file Sexual Orientation Straight 01/23/2021 10 :16 PM CDT documented as of this encounter Plan of Treatment Scheduled Orders Name Type Priority Associated Diagnoses Orde r Schedule CBC with auto differential Lab Routine Healthcare maintenance Expected: 04/15/2024, Expires: 12/13/2024 Comprehensive metabolic panel Lab Routine Healthcare maintenance Expected: 04/15/2024 (Approximate), Expires: 12/13/2024 Thyroid Function [place] Lab Routine Healthcare maintenance Expected: 04/15/2024, Expires: [...] ACO Care Management On track(2022 11:14 AM LEAD WEB DEVELOPER) Sepideh Guo, RN Note: Problem: Potential for [...] test documented in this encounter Care Teams Game Trapper Relationship Specialty Start Date End Date Christine Herzog MD [address] [place] [address] [place] [address] PCP - General Internal Medicine 12/02/21 Trey Pinedo MD [address] [place] [address] [address] [place] [address] Consulting Physician Neurology 05/09/19 Albert Craft MD [address] [place] [address] [address] [place] [address] Consulting Physician Gastroenterology 03/11/22 Chintan Figueroa MD [address] [place] [address] [address] [place] [address] Consulting Physician Hematology and Oncology 03/11/22 Jmaeel Bloom DPM [address] [place] [address] Consulting Physician Orthotics 03/11/22 Gadiel Genao MD [address] [place] [address] Surgeon Vascular Surgery 03/11/22 documented as of this encounter
--- OUTSIDE RECORDS SUMMARY | 2024-06-18 19:08 | XMS_ITS | Encounter Summary ---
Author Organization [facility] Address [address] [place] [address] Care Team Providers Care Composite Mechanic Name Role Phone Trey Pinedo MD Unavailable [phone] Christine Herzog MD Primary Care Provide r Albert Craft MD Unavailable [phone] Chintan Figueroa MD Unavailable [phone] Jameel Bloom DPM Unavailable [phone] Gadiel Genao MD Unavailable [phone] Reason for Visit * Reason Comments Phlebotomy Encounter Details Date Type Department Care Team (Late st Contact Info) Description 05/16/2024 2:30 PM [facility] at [address] [place] [phone] Polycythemia (Primary Dx) Social History Tobacco Use [...] on file Legal 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 HMASTER documented in this encounter Plan of Treatment Not on file documented as of this encounter Goals Goal Patient Goal Type Associated Problems Recent Progress Patient-Stated? Author GULSHAN General Goal - Patient schedules and keeps appointments with all recommended providers ACO Care Management On track(2022 11:14 AM WEIGHMASTER) Sepideh Guo RN Note: Problem: Potential for [...] 05/16/2024 documented in this encounter Care Teams Composite Mechanic Relationship Specialty Start Date End Date Christine Herzog MD [address] [place] [address] PCP - General Internal Medicine 12/02/21 Trey Pinedo MD [address] [place] [address] [address] [place] [address] Consulting Physician Neurology 05/09/19 Albert Craft MD [address] [place] [address] [address] [place] [address] Consulting Physician Gastroenterology 03/11/22 Chintan Figueroa MD [address] [place] [address] [address] [place] [address] Consulting Physician Hematology and Oncology 03/11/22 Jameel Bloom DPM [address] [place] [address] Consulting Physician Orthotics 03/11/22 Gadiel Genao MD [address] [place] [address] Surgeon Vascular Surgery 03/11/22 documented as of this encounter
--- OUTSIDE RECORDS SUMMARY | 2024-06-18 19:08 | XMS_ITS | Encounter Summary ---
Author Organization [facility] Healthcare Address [address] [place] [address] Care Team Providers Care Mainspring Winder And Oiler Name Role Phone Trey Pinedo MD Unavailable [phone] Christine Herzog MD Primary Care Provide r Albert Craft MD Unavailable [phone] Chintan Figueroa MD Unavailable [phone] Jameel Bloom DPM Unavailable [phone] Gadiel Genao MD Unavailable [phone] Reason for Visit * Reason Comments Phlebotomy Encounter Details Date Type Department Care Team (Late st Contact Info) Description 03/21/2024 2:30 PM CDT [facility] [address] [place] [phone] Polycythemia Social History Tobacco Use Types Packs/Day [...] on file 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 ROOFER Gender Identity Not on file Sexual Orientation [...] ACO Care Management On track(2022 11:14 AM ROOFER) No Sepideh Hi, SUE Note: Problem: Potential [...] 03/21/2024 documented in this encounter Care Teams Mainspring Winder And Oiler Relationship Specialty Start Date End Date Christine Herzog MD 2 [facility] [address] [place] [address] PCP - General Internal Medicine 12/02/21 Trey Pinedo MD 4 [facility] [address] [place] [address] Consulting Physician Neurology 05/09/19 Albert Craft MD 2 [facility] [address] [place] [address] Consulting Physician Gastroenterology 03/11/22 Chintan Figueroa MD [address] [facility] [address] [place] [address] Consulting Physician Hematology and Oncology 03/11/22 Jameel Bloom DPM [address] [place] [address] Consulting Physician Orthotics 03/11/22 Gadiel Genao MD [address] [place] [address] Surgeon Vascular Surgery 03/11/22 documented as of this encounter
--- OUTSIDE RECORDS SUMMARY | 2024-06-18 19:08 | XMS_ITS | Encounter Summary ---
Author Organization [facility] Healthcare Address [address] [place] [address] Care Team Providers Care Auto Body Mechanic Apprentice Name Role Phone Trey Pinedo MD Unavailable [phone] Christine Herzog MD Primary Care Provide r Albert Craft MD Unavailable [phone] Chintan Figueroa MD Unavailable [phone] Jameel Bloom DPM Unavailable [phone] Gadiel Genao MD Unavailable [phone] Encounter Details Date Type Department Care Team (Late st Contact Info) Description 01/05/2024 9:30 AM CDT Lab [address] [address] Polycythemia Social History Tobacco Use Types Packs/Day [...] r organizations such as mandaeism groups, unions, fraternal or athletic groups, or [...] on file 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 Author GULSHAN General Goal - Patient schedules and keeps appointments with all recommended providers ACO Care Management On track(2022 11:14 AM HALFWAY HOUSE COUNSELOR) No Sepideh Hi, SUE Note: Problem: [...] - 6.5 K/cumm Comment:Testing performed by : [facility] [address], Medical Office [address], [place] [address] Imm gran abs 0.0 0.0 - 0.1 K/cumm [facility] ([place]) Comment:Testing performed by : [facility] [address], Medical Office [facility] [address], [place] [address] Lymphocyte abs 1.3 0.8 - 3.3 K/cumm [facility] ([place]) Comment:Testing performed by : [facility] [address], Medical Office [facility] [address], [place] [address] Monocyte abs 0.7 0.2 - 0.8 K/cumm [facility] ([place]) Comment:Testing performed by : [facility] [address], Medical Office [facility] [address], [place] [address] Eosinophil abs 0.2 0.0 - 0.5 K/cumm [facility] ([place]) Comment:Testing performed by : [facility] [address], Medical Office [facility] [address], [place] [address] Basophil abs 0.1 0.0 - 0.1 K/cumm [facility] ([place]) Comment:Testing performed by : [facility] [address], Medical Office [facility] [address], [place] [address] Neutrophil pct 68.9 % [facility] ([place]) Comment: Interpretive Data Percent cell count reference ranges are not reported, since discordance with absolute values may lead to misinterpretation of CBC data. Current Interpretive Data was last revised on 2022. Testing performed by: [facility] [address], Medical Office [facility] [address], [place] [address] Imm gran pct 0.1 % [facility] ([place]) Comment: Interpretive Data Percent cell count reference ranges are not reported, since discordance with absolute values may lead to misinterpretation of CBC data. Current Interpretive Data was last revised on 2022. Testing performed by: [facility] [address], Medical Office [facility] [address], [place] [address] Lymphocyte pct 17.5 % [facility] ([place]) Comment: Interpretive Data Percent cell count reference ranges are not reported, since discordance with absolute values may lead to misinterpretation of CBC data. Current Interpretive Data was last revised on 2022. Testing performed by: [facility] [address], Medical Office [facility] [address], [place] [address] Monocyte pct 10.1 % [facility] ([place]) Comment: Interpretive Data Percent cell count reference ranges are not reported, since discordance with absolute values may lead to misinterpretation of CBC data. Current Interpretive Data was last revised on 2022. Testing performed by: [facility] [address], Medical Office [facility] [address], [place] [address] Eosinophil pct 2.0 % JEAN CARLOS [facility]MIC[facility] ([place]) Comment: Interpretive Data Percent cell count reference ranges are not reported, since discordance with absolute values may lead to misinterpretation of CBC data. Current Interpretive Data was last revised on 2022. Testing performed by: [facility] [address], Medical Office [facility] [address], [place] [address] Basophil pct 1.4 % R[facility]ENS CARMICHA[facility] ([place]) Comment: Interpretive Data Percent cell count reference ranges are not reported, since discordance with absolute values may lead to misinterpretation of CBC data. Current Interpretive Data was last revised on 2022. Testing performed by: [facility] [address], Medical Office [facility] [address], [place] [address] Blood 01/05/2024 9:50 AM CDT 01/05/2024 9:51 AM CDT us Chintan Figueroa MD LAB BLOOD ORDERABLES Final Re sult [facility] CARMICHA[facility] ([place]) 1 [facility] [place] [address] * (ABNORMAL) CBC with auto differential (01/05/2024 9:50 AM CDT) WBC 7.4 3.8 - 9.9 K/cumm Comment:Testing performed by : [facility] [address], Medical Office [facility] [address], [place] [address] Hgb 15.3 13.0 - 17.5 g/dL [facility] ([place]) Comment:Testing performed by : [facility] [address], Medical Office [facility] [address], [place] [address] Hct 49.9 38.9 - 50.3 % [facility] ([place]) Comment:Testing performed by : [facility] [address], Medical Office [address], [place] [address] Plt 202 150 - 400 K/cumm [facility] ([place]) Comment:Testing performed by : [facility] [address], Medical Office [facility] [address], [place] [address] MPV 9.9 9.1 - 12.3 fL [facility] ([place]) Comment:Testing performed by : [facility] [address], Medical Office [facility] [address], [place] [address] RBC 6.64(H) 4.30 - 5.80 M/cumm [facility] ([place]) Comment:Testing performed by : [facility] [address], Medical Office [facility] [address], [place] [address] MCV 75.2(L) 81.3 - 96.4 fL [facility] ([place]) Comment:Testing performed by : [facility] [address], Medical Office [facility] [address], [place] [address] MCH 23.0(L) 27.1 - 33.3 pg [facility] ([place]) Comment:Testing performed by : [facility] [address], Medical Office [facility] [address], [place] [address] MCHC 30.7(L) 32.3 - 35.7 g/dL [facility] ([place]) Comment:Testing performed by : [facility] [address], Medical Office [facility] [address], [place] [address] RDW CV 19.5(H) 11.1 - 14.9 % [facility] ([place]) Comment:Testing performed by : [facility] [address], Medical Office [facility] [address], [place] [address] RDW SD 49.8(H) 35.7 - 48.1 fL [facility] ([place]) Comment:Testing performed by : [facility] [address], Medical Office [facility] [address], [place] [address] NRBC abs Not Measured 0.00 - 0.01 K/cumm RUBENS CARMICHAEL ([place]) Comment:Testing performed by : [facility] [address] [facility] , Medical Office [facility] [address], [place] [address] Blood 01/05/2024 9:50 AM CDT 01/05/2024 9:51 AM CDT Chintan Figueroa MD LAB BLOOD ORDERABLES Final Re sult [facility] ([place]) 1 [facility] Department [place] [address] documented in this encounter Visit Diagnoses Diagnosis Polycythemia Polycythemia, secondary documented in this encounter Care Teams Auto Body Mechanic Apprentice Relationship Specialty Start Date End Date Christine Herzog MD [address] [facility] [address] [place] [address] PCP - General Internal Medicine 12/02/21 Trey Pinedo MD [address] [place] [address] [address] [place] [address] Consulting Physician Neurology 05/09/19 Albert Craft MD [address] [facility] [address] [place] [address] Consulting Physician Gastroenterology 03/11/22 Chintan Figueroa MD [address] [facility] [address] [place] [address] Consulting Physician Hematology and Oncology 03/11/22 Jameel Bloom DPM [address] [place] [address] Consulting Physician Orthotics 03/11/22 Gadiel Genao MD [facility] [place] [address] Surgeon Vascular Surgery 03/11/22 documented as of this encounter
--- OUTSIDE RECORDS SUMMARY | 2024-06-18 19:08 | XMS_ITS | Encounter Summary ---
Author Organization [facility] Healthcare Address [address] [place] [address] Care Team Providers Care Source Inspector Name Role Phone Trey Pinedo MD Unavailable [phone] Christine Herzog MD Primary Care Provide r Albert Craft MD Unavailable [phone] Chintan Figueroa MD Unavailable [phone] Jameel Bloom DPM Unavailable [phone] Gadiel Genao MD Unavailable [phone] Encounter Details Date Type Department Care Team (Late st Contact Info) Description 12/27/2023 Telephone [facility] [address] [place] [phone] Radha Arora Social History Tobacco Use Types [...] often do you attend chur ch or taoist services? 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 Gender Identity Not on file Sexual [...] Care Management On track(2022 11:14 AM MACHINE ASSEMBLER) Sepideh Guo RN Note: Problem: Potential for [...] on filedocumented in this encounter Care Teams Source Inspector Relationship Specialty Start Date End Date Christine Herzog MD [address] [place] [address] [place] [address] PCP - General Internal Medicine 12/02/21 Trey Pinedo MD [address] [place] [address] [address] [place] [address] Consulting Physician Neurology 05/09/19 Albert Craft MD [address] [place] [address] [address] [place] [address] Consulting Physician Gastroenterology 03/11/22 Chintan Figueroa MD [address] [place] [address] [address] [place] [address] Consulting Physician Hematology and Oncology 03/11/22 Jameel Bloom DPM [address] [place] [address] Consulting Physician Orthotics 03/11/22 Gadiel Genao MD [address] [place] [address] Surgeon Vascular Surgery 03/11/22 documented as of this encounter
--- OUTSIDE RECORDS SUMMARY | 2024-06-18 19:08 | XMS_ITS | Encounter Summary ---
Author Organization [facility] Healthcare Address [address] [place] [address] Care Team Providers Care Hot Water Heater Installer Name Role Phone Trey Pinedo MD Unavailable [phone] Christine Herzog MD Primary Care Provide r Albert Craft MD Unavailable [phone] Chintan Figueroa MD Unavailable [phone] Jameel Bloom DPM Unavailable [phone] Gadiel Genao MD Unavailable [phone] Reason for Visit * Reason Comments Phlebotomy Encounter Details Date Type Department Care Team (Late st Contact Info) Description 01/05/2024 10:30 AM CDT [facility] [address] [place] [phone] Polycythemia (Primary Dx) Social History Tobacco Use [...] on file 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 Gender Identity Not on file Sexual [...] ACO Care Management On track(2022 11:14 AM MILD DISABILITIES TEACHER) Sepideh Guo, SUE Note: Problem: Potential for [...] 01/05/2024 documented in this encounter Care Teams Hot Water Heater Installer Relationship Specialty Start Date End Date Christine Herzog MD [address] [facility] [address] [place] [address] PCP - General Internal Medicine 12/02/21 Trey Pinedo MD [address] [place] [address] [address] [place] [address] Consulting Physician Neurology 05/09/19 Albert Craft MD [address] [place] [address] [address] [place] [address] Consulting Physician Gastroenterology 03/11/22 Chintan Figueroa MD [address] [place] [address] [address] [place] [address] Consulting Physician Hematology and Oncology 03/11/22 Jameel Bloom DPM [address] [place] [address] Consulting Physician Orthotics 03/11/22 Gadiel Genao MD [address] [place] [address] Surgeon Vascular Surgery 03/11/22 documented as of this encounter
--- OUTSIDE RECORDS SUMMARY | 2024-06-18 19:08 | XMS_ITS | Encounter Summary ---
Author Organization [facility] Address [address] [place] [address] Phone Care Team Providers Care Ratoprinter Name Role Phone Trey Pinedo MD Unavailable [phone] Christine Herzog MD Primary Care Provide r Albert Craft MD Unavailable [phone] Chintan Figueroa MD Unavailable [phone] Jameel Bloom DPM Unavailable [phone] Gadiel Genao MD Unavailable [phone] Encounter Details Date Type Department Care Team (Late st Contact Info) Description 12/01/[address] [facility] Oncology [address] [place] [address] [phone] Josefa Santana, NICAT Social History Tobacco Use [...] No 09/26/2022 OASIS B1300: Health Literacy Answer Marni e Recorded Frequency of needing help to [...] often do you attend chur ch or samaritan services? Patient declined 09/28/2022 Do you belong [...] on file Legal Sex Male 6:00 PM PELTS SKINNER Gender Identity Not on file Sexual [...] ACO Care Management On track(2022 11:14 AM PELTS SKINNER) Sepideh Guo RN Note: Problem: Potential [...] on filedocumented in this encounter Care Teams Ratoprinter Relationship Specialty Start Date End Date Christine Herzog MD [address] [facility] [address] [place] [address] PCP - General Internal Medicine 12/02/21 Trey Pinedo MD [address] [place] [address] [address] [place] [address] Consulting Physician Neurology 05/09/19 Albert Craft MD [address] [place] [address] [address] [place] [address] Consulting Physician Gastroenterology 03/11/22 Chintan Figueroa MD [address] [place] [address] [address] [place] [address] Consulting Physician Hematology and Oncology 03/11/22 Jameel Bloom DPM [address] [place] [address] Consulting Physician Orthotics 03/11/22 Gadiel Genao MD [address] [place] [address] Surgeon Vascular Surgery 03/11/22 documented as of this encounter
--- OUTSIDE RECORDS SUMMARY | 2024-06-18 19:08 | XMS_ITS | Encounter Summary ---
Author Organization [facility] Healthcare Address [address] [place] [address] Care Team Providers Care Telephoto Installer Name Role Phone Trey Pinedo MD Unavailable [phone] Christine Herzog MD Primary Care Provide r Albert Craft MD Unavailable [phone] Chintan Figueroa MD Unavailable [phone] Jameel Bloom DPM Unavailable [phone] Gadiel Genao MD Unavailable [phone] Encounter Details Date Type Department Care Team (Late st Contact Info) Description 12/14/2023 9:30 AM CDT [address] [address] Type 2 diabetes mellitus with hyperlipidemia (HCC) [...] any clubs o r organizations such as cheondoism groups, unions, fraternal or athletic groups, or [...] on file 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 Author GULSHAN General Goal - Patient schedules and keeps appointments with all recommended providers ACO Care Management On track(2022 11:14 AM IMMUNOLOGIST) No Sepideh Hi RN Note: Problem: Potential [...] LAB BLOOD ORDERABLES Final Result [facility] ([place]) 1 [facility] Department [place] [address] * (ABNORMAL) Hemoglobin A1c (12/14/2023 [...] children were not included. ?? (Diabetes Care 31:5285-5899, 2008). ??The eAG is not equivalent to a fasting glucose. Blood 12/14/2023 9:36 AM CDT 12/14/2023 10:33 AM CDT Narrative [facility] - 12/14/2023 11:02 AM CDT fasting us Christine Herzog MD LAB BLOOD ORDERABLES Final Result [facility] ([place]) 1 [facility] Department [place] [address] * (ABNORMAL) Comprehensive metabolic panel (12/14/2023 9:36 AM CDT) Sodium 143 135 - 145 mmol/L Potassium, pl 4.5 3.3 - 4.9 mmol/L [facility] ([place]) Chloride 107 97 - 110 mmol/L [facility] ([place]) CO2 24 22 - 32 mmol/L [facility] ([place]) Anion gap 12 2 - 15 mmol/L [facility] ([place]) BUN 25 6 - 25 mg/dL [facility] Creatinine 1.44(H) 0.80 - 1.30 mg/dL [facility] ([place]) Glucose 106 70 - 199 mg/dL [facility] Comment: Interpretive Data [...] ORDERABLES Final Result [facility] ([place]) 1 [facility] Department [place] [address] * (ABNORMAL) Albumin Creatinine Ratio, Urine (12/14/2023 9:36 AM CDT) Albumin Ur 135.9 mg/L Comment: Interpretive Data No reference range established. Current interpretive data was last revised 2018. Testing performed by: [facility], [address] [place] [address]., [address] Creatinine Ur 247.3 mg/dL [facility] ([place]) Comment: Interpretive Data No reference range established. Current interpretive data was last revised 2018. Testing performed by: [facility], [address] [place] [address]., [address] Albumin Creatinine Ratio, Ur 55(H) 1 - 29 mg/g [facility] ([place]) Comment:Testing performed by : [address] [address] Urine 12/14/2023 9:36 AM CDT 12/14/2023 1:31 PM CDT Narrative [facility] ([place]) - 12/14/2023 2:34 PM CDT Non fasting Christine Herzog MD LAB URINE ORDERABLES Final Result [facility] CARMICHAEL ([place]) 1 [facility] Department [place] [address] documented in this encounter Visit Diagnoses Diagnosis Type 2 diabetes mellitus with hyperlipidemia (HCC) documented in this encounter Care Teams Telephoto Installer Relationship Specialty Start Date End Date Christine Herzog MD [address] [facility] [address] [place] [address] PCP - General Internal Medicine 12/02/21 Trey Pinedo MD [address] [place] [address] [address] [place] [address] Consulting Physician Neurology 05/09/19 Albert Craft MD [address] [facility] [address] [place] [address] Consulting Physician Gastroenterology 03/11/22 Chintan Figueroa MD [address] [place] [address] [address] [place] [address] Consulting Physician Hematology and Oncology 03/11/22 Jameel Bloom DPM [address] [place] [address] Consulting Physician Orthotics 03/11/22 Gadiel Genao MD [address] [place] [address] Surgeon Vascular Surgery 03/11/22 documented as of this encounter
--- OUTSIDE RECORDS SUMMARY | 2024-06-18 19:08 | XMS_ITS | Encounter Summary ---
Author Organization [facility] Healthcare Address [address] [place] [address] Care Team Providers Care Refinery Operator Crude Unit Name Role Phone Trey Pinedo MD Unavailable [phone] Christine Herzog MD Primary Care Provide r Albert Craft MD Unavailable [phone] Chintan Figueroa MD Unavailable [phone] Jameel Bloom DPM Unavailable [phone] Gadiel Genao MD Unavailable [phone] Reason for Visit * Reason Comments Hypertension kidney function Encounter Details Date Type Department Care Team (Late st Contact Info) Description 12/14/2023 2:15 PM CDT Office Visit [facility] Medical Group Primary Care at [address] [place] [phone] Christine Herzog MD [address] [place] [address] [address] [place] [address] Essential hypertension (Primary Dx); Type [...] How often do you attend chur or restorationist services? Patient declined 09/28/2022 Do you belong [...] on file Legal Sex Male 6:00 PM BLACK BELT Gender Identity Not on file Sexual Orientation [...] MD - 12/14/2023 2:15 PM CDT My medical referral coordinator and I are thankful you have trusted [...] of his abdomen for a fall [facility]. Will try to get those records. Review [...] try to get recent ct scan from [place] Orders: - omeprazole (PriLOSEC) 20 mg capsule; [...] try to get recent ct scan from [place] * Assessment & Plan Note - Christine [...] ACO Care Management On track(2022 11:14 AM BLACK BELT) Sepideh Guo, SUE Note: Problem: Potential for [...] dinner added in this encounter Care Teams Refinery Operator Crude Unit Relationship Specialty Start Date End Date Christine Herzog MD [address] [place] [address] [place] [address] PCP - General Internal Medicine 12/02/21 Trey Pinedo MD [address] [place] [address] [address] [place] [address] Consulting Physician Neurology 05/09/19 Albert Craft MD [address] [facility] [address] [place] [address] Consulting Physician Gastroenterology 03/11/22 Chintan Figueroa MD [address] [facility] [address] [place] [address] Consulting Physician Hematology and Oncology 03/11/22 Jameel Bloom DPM [address] [place] [address] Consulting Physician Orthotics 03/11/22 Gadiel Genao MD [address] [place] [address] Surgeon Vascular Surgery 03/11/22 documented as of this encounter
--- OUTSIDE RECORDS SUMMARY | 2024-06-18 19:08 | XMS_ITS | Referral Summary ---
Author Organization [facility] Address [address] [place] [address] Care Team Providers Care Editor Sound Name Role Phone Trey Pinedo MD Unavailable [phone] Christine Herzog MD Primary Care Provide r Albert Craft MD Unavailable [phone] Chintan Figueroa MD Unavailable [phone] Jameel Bloom DPM Unavailable [phone] Gadiel Genao MD Unavailable Encounters Date Type Department Care Team Description 05/16/2024 2:30 PM LANDFILL ATTENDANT Infusion [address] [place] [phone] Polycythemia (Primary Dx) 05/16/2024 2:15 PM LANDFILL ATTENDANT Lab [address] [place] [phone] Polycythemia 03/21/2024 2:30 PM CDT Infusion [address] [place] [phone] Polycythemia 03/21/2024 2:15 PM CDT Lab [facility] [place] [address] [facility] [address] [place] [address] Polycythemia from Last 3 Months Allergies Active [...] 5 mg tabletIndications :Coronary artery disease involving andreafski coronary artery of andreafski heart without angina pectoris,Essentia l hypertension,Paro xysmal [...] 6 months Encourage hydration Current use of oysterman anticoagulation 023 PVC (premature ventricular contraction) 02/10/20 [...] for evaluation of vertigo Can try scopolamine [id number] for symptomatic relief Generalized weakness 12/09/2021 Assessment & Plan (12/09/2021 6:33 PM CDT): No signs of infection or fluid overload. Suspect weakness due to age related debility. Patient's son requests for patient to have home PT rather than outpatient PT research laboratory manager consulted for the same. Continue PT [...] (11/12/2019): Added automatically from request for surgery [id number] Type 2 diabetes mellitus with hyperlipidemia Assessment [...] 05/20/2019 Assessment & Plan (08/16/2019 10:51 AM LANDFILL ATTENDANT): Uncontrolled HTN certainly a concern given hx of TIA, CAD. Education provided to him and of importance in HTN regimen. Assessment & Plan (05/20/2019 10:17 AM LANDFILL ATTENDANT): CT imaging detailed above demonstrating cerebrovascular arteriosclerosis [...] 05/08/2019 Assessment & Plan (05/20/2019 10:21 AM LANDFILL ATTENDANT): Chads Vasc score 3/9 with recent TIA, imaging all negative for acute stroke. Hx of CVD, CVA, CAD does recommending Pt to Cnt. Dual anti-platelet therapy for at least 3 months or can consider stepping down from Plavix only if recommended by supervisor advertising dispatch clerks, increasing atorvastatin 80 mg daily. History of noncompliance with medical treatment 05/08/2019 History of colon polyps 11/17/2018 Assessment & Plan (11/17/2018 11:24 AM CDT): Colonoscopy last year showed few adenoma polyps removed. Next colonoscopy will be 2020. Bladder stones 2017 Coronary artery disease invo lving andreafski coronary artery of andreafski heart without angina pectoris 2017 Assessment & [...] johanne Assessment & Plan (05/20/2019 10:19 AM LANDFILL ATTENDANT): Hx of CAD with stents, HLD, arteriosclerosis [...] needed Assessment & Plan (05/20/2019 10:22 AM LANDFILL ATTENDANT): Stable. Cnt. Current Nexium dosing. Assessment & Plan (11/17/2018 11:21 AM CDT): Patient is doing well on Nexium. Will continue the same. Polycythemia 07/07/2017 Assessment & Plan (03/22/2023 7:11 AM CDT): Continue following with hematology Assessment & Plan (07/07/2017 3:41 PM LANDFILL ATTENDANT): Patient is currently undergoing treatment per Hematology. He is concerned his blood counts may be drifting upward and request CBC today. Blood work will be drawn and results will be forwarded along to vacation guide for review as well. Further direction pending [...] urology Assessment & Plan (05/20/2019 10:16 AM LANDFILL ATTENDANT): Asymptomatic and stable medication. Cnt. Proscar, Flomax. [...] monitor. Assessment & Plan (05/20/2019 10:21 AM LANDFILL ATTENDANT): Much improved with clonidine patch. Pt was [...] statin Assessment & Plan (05/20/2019 10:20 AM LANDFILL ATTENDANT): Increase Lipitor to 80 mg a day [...] 08/16/201910/24 Assessment & Plan (08/16/2019 10:50 AM LANDFILL ATTENDANT): Improving, but uncontrolled. Cont valsartan, metoprolol and adding clonidine patch back into regimen. New script written for BP machine D/T home machine inaccuracies. Sx to monitor for, report given to both him and . Repeat BMP in 1 month D/T recently starting valsartan. RTC next week as scheduled. History of recent hospitalization 05/20/2019 05/20/2019 Assessment & Plan (05/20/2019 10:11 AM LANDFILL ATTENDANT): Recent hospitalization records reviewed with labs and diagnostics all detailed above Hypertensive emergency 05/08/201905/20 Type 2 diabetes mellitus with hyperlipidemia 8 11/29/2018 Skin tear of left hand without complication 08/21/2017 2017 Assessment & Plan (08/21/2017 1:58 PM LANDFILL ATTENDANT): Patient has adequate supply Bactroban previously prescribed. [...] 08/15/2017 Assessment & Plan (08/21/2017 1:57 PM LANDFILL ATTENDANT): Resolved. There is no indication for additional antibiotics at the present time. Assessment & Plan (08/15/2017 12:08 PM LANDFILL ATTENDANT): Patient was encouraged to apply topical antibiotic [...] 08/21/2017 Assessment & Plan (08/15/2017 12:07 PM LANDFILL ATTENDANT): Patient was encouraged to apply topical Bactroban [...] 07/07/20172017 Assessment & Plan (07/07/2017 3:40 PM LANDFILL ATTENDANT): Patient has an abrasion on the plantar [...] 2017 Assessment & Plan (07/07/2017 3:40 PM LANDFILL ATTENDANT): I recommended we proceed with x-ray of the sacrum and coccyx to rule out underlying fracture. Further direction pending x-ray results. Sebaceous cyst 06/11/2017 2017 Assessment & Plan (06/11/2017 5:14 PM LANDFILL ATTENDANT): Discussed with the patient the results. Patient [...] 02/26/2020 Assessment & Plan (05/20/2019 10:16 AM LANDFILL ATTENDANT): Closely by . Next EGD scheduled for 2020. Cnt. Nexium therapy prior advised. 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 Next EGD should be in year 2021 for surveillance. Coronary artery disease invo lving andreafski heart without angina pectoris 12/26/2016 2017 Type [...] often do you attend chur ch or druze services? Patient declined 09/28/2022 Do you belong [...] on file Legal Sex Male 6:00 PM LANDFILL ATTENDANT Gender Identity Not on file Sexual Orientation Straight 01/23/2021 10 :16 PM CDT Last Filed Vital Signs Vital Sign Reading Time Taken Comments Blood Pressure 112/68 05/16/2024 4:10 PM LANDFILL ATTENDANT Pulse 56 05/16/2024 4:10 PM LANDFILL ATTENDANT Temperature 36.3 ??C (97.4 ??F) 05/16/2024 2:45 PM CS T Respiratory Rate 18 05/16/2024 4:10 PM LANDFILL ATTENDANT Oxygen Saturation 100% 05/16/2024 4:10 PM LANDFILL ATTENDANT Inhaled Oxygen Concentration - - Weight 90.4 [...] ACO Care Management On track(2022 11:14 AM LANDFILL ATTENDANT) Sepideh Guo, SUE Note: Problem: Potential for [...] medication regimen. Medical Devices Implanted Type Area Wire Annealer Device Identifier Shelf Expiration Date Model / Serial / Lot Xience-09/04/2012 Implanted:09/04 (Quantity not on file) Coronary Procedures Procedure Name Priority Date/Time Associated Diagnosis Comments DIFFERENTIAL AUTO Routine 05/16/2024 2:4 5 PM LANDFILL ATTENDANT Polycythemia CBC WITH AUTO DIFFERENTIAL Routine 05/16/2024 2:45 PM LANDFILL ATTENDANT Polycythemia DIFFERENTIAL AUTO Routine 03/21/2024 2:3 5 [...] Read Routine (OP Routine) 09/09/2020 1:02 PM LANDFILL ATTENDANT History of tobacco abuse Encounter for screening for lung cancer DIABETIC EYE EXAM Routine 02/03/2020 COLONOSCOPY 01/09/2018 8:46 AM CDT DIABETES FOOT EXAM Routine 08/18/2016 HEPATITIS C SCREENING Routine 06/17/2016 from Last 3 Months or Most Recently Relevant to Health Maintenance Results * Differential, auto (05/16/2024 2:45 PM LANDFILL ATTENDANT) Neutrophil abs 4.7 1.5 - 6.5 K/cumm Comment:Testing performed by : [facility] [address], Medical Office [facility] [address], [place] [address] Imm gran abs 0.0 0.0 - 0.1 K/cumm [facility] ([facility]) Comment:Testing performed by : [facility] [address], Medical Office [facility] [address], [place] [address] Lymphocyte abs 1.1 0.8 - 3.3 K/cumm [facility] ([place]) Comment:Testing performed by : [facility] [address], Medical Office [facility] [address], [place] [address] Monocyte abs 0.8 0.2 - 0.8 K/cumm [facility] ([place]) Comment:Testing performed by : [facility] [address], Medical Office [facility] [address], [place] [address] Eosinophil abs 0.2 0.0 - 0.5 K/cumm [facility] ([place]) Comment:Testing performed by : [facility] [address], Medical Office [facility] [address], [place] [address] Basophil abs 0.1 0.0 - 0.1 K/cumm [facility] ([place]) Comment:Testing performed by : [facility] [address], Medical Office [facility] [address], [place] [address] Neutrophil pct 68.4 % [facility] ([place]) Comment: Interpretive Data Percent cell count reference ranges are not reported, since discordance with absolute values may lead to misinterpretation of CBC data. Current Interpretive Data was last revised on 2022. Testing performed by: [facility] [address], Medical Office Bldg [address], [place] [address] Imm gran pct 0.0 % [facility] ([place]) Comment: Interpretive Data Percent cell count reference ranges are not reported, since discordance with absolute values may lead to misinterpretation of CBC data. Current Interpretive Data was last revised on 2022. Testing performed by: [facility] [address], Medical Office Bld[address], [place] [address] Lymphocyte pct 16.6 % [facility] ([place]) Comment: Interpretive Data Percent cell count reference ranges are not reported, since discordance with absolute values may lead to misinterpretation of CBC data. Current Interpretive Data was last revised on 2022. Testing performed by: [facility] [address], Medical Office dg [address], [place] [address] Monocyte pct 11.0 % [facility] ([place]) Comment: Interpretive Data Percent cell count reference ranges are not reported, since discordance with absolute values may lead to misinterpretation of CBC data. Current Interpretive Data was last revised on 2022. Testing performed by: [facility] [address], Medical Office dg [address], [place] [address] Eosinophil pct 2.2 % [facility] ([place]) Comment: Interpretive Data Percent cell count reference ranges are not reported, since discordance with absolute values may lead to misinterpretation of CBC data. Current Interpretive Data was last revised on 2022. Testing performed by: [facility] [address], Medical Office Bld[address], [place] [address] Basophil pct 1.8 % [facility] ([place]) Comment: Interpretive Data Percent cell count reference ranges are not reported, since discordance with absolute values may lead to misinterpretation of CBC data. Current Interpretive Data was last revised on 2022. Testing performed by: [facility] [address], Medical Office Bld[address], [place] [address] Blood 05/16/2024 2:45 PM LANDFILL ATTENDANT 05/16/2024 2:49 PM LANDFILL ATTENDANT Bronwynsukumar Nava COMPUTER SECURITY SPECIALIST LAB BLOOD ORDERABLES Final Result [facility] ([place]) [address] [facility] Department [place] [address] * (ABNORMAL) CBC with auto differential (05/16/2024 2:45 PM LANDFILL ATTENDANT) WBC 6.6 3.8 - 9.9 K/cumm Comment:Testing performed by : [place], [address] Hgb 14.3 13.0 - 17.5 g/dL [facility] ([place]) Comment:Testing performed by : [place], [address] Hct 48.5 38.9 - 50.3 % [facility] ([place]) Comment:Testing performed by : [place], [address] Plt 197 150 - 400 K/cumm [facility] ([place]) Comment:Testing performed by : [place], [address] MPV 11.1 9.1 - 12.3 fL [facility] ([place]) Comment:Testing performed by : [place], [address] RBC 6.22(H) 4.30 - 5.80 M/cumm [facility] ([place]) Comment:Testing performed by : [place], [address] MCV 78.0(L) 81.3 - 96.4 fL [facility] ([place]) Comment:Testing performed by : [place], [address] MCH 23.0(L) 27.1 - 33.3 pg [facility] ([place]) Comment:Testing performed by : [place], [address] MCHC 29.5(L) 32.3 - 35.7 g/dL [facility] ([place]) Comment:Testing performed by : [facility], [facility], [place], [address] RDW CV 18.8(H) 11.1 - 14.9 % [facility] ([place]) Comment:Testing performed by : [facility], [facility], [place], [address] RDW SD 50.4(H) 35.7 - 48.1 fL [facility] ([place]) Comment:Testing performed by : [facility], [facility], [place], [address] NRBC abs Not Measured 0.00 - 0.01 K/cumm [facility] ([place]) Comment:Testing performed by : [facility], [facility], [place], [address] Blood 05/16/2024 2:45 PM LANDFILL ATTENDANT 05/16/2024 2:49 PM LANDFILL ATTENDANT Bronwyn Nava COMPUTER SECURITY SPECIALIST LAB BLOOD ORDERABLES Final Result Performing Organization Address City/State/[facility] [[email or web address]] Co de Phone Number [facility] ([place]) 1 [facility] Department [place] [address] * Differential, auto (03/21/2024 2:35 PM CDT) Neutrophil abs 4.3 1.5 - 6.5 K/cumm Comment:Testing performed by : [facility] [address], Medical Office [facility] [address], [place] [address] Imm gran abs 0.0 0.0 - 0.1 K/cumm [facility] ([place]) Comment:Testing performed by : [facility] [address], Medical Office [facility] [address], [place] [address] Lymphocyte abs 1.2 0.8 - 3.3 K/cumm [facility] ([place]) Comment:Testing performed by : [facility] [address], Medical Office [facility] [address], [place] [address] Monocyte abs 0.7 0.2 - 0.8 K/cumm [facility] ([place]) Comment:Testing performed by : [facility] [address], Medical Office [facility] [address], [place] [address] Eosinophil abs 0.2 0.0 - 0.5 K/cumm [facility] ([place]) Comment:Testing performed by : [facility] [address], Medical Office [facility] [address], [place] [address] Basophil abs 0.1 0.0 - 0.1 K/cumm [facility] ([place]) Comment:Testing performed by : [facility] [address], Medical Office [facility] [address], [place] [address] Neutrophil pct 65.4 % [facility] ([place]) Comment: Interpretive Data Percent cell count reference ranges are not reported, since discordance with absolute values may lead to misinterpretation of CBC data. Current Interpretive Data was last revised on 2022. Testing performed by: [facility] [address], Medical Office [facility] [address], [place] [address] Imm gran pct 0.3 % [facility] ([place]) Comment: Interpretive Data Percent cell count reference ranges are not reported, since discordance with absolute values may lead to misinterpretation of CBC data. Current Interpretive Data was last revised on 2022. Testing performed by: [facility] [address], Medical Office [facility] [address], [place] [address] Lymphocyte pct 19.0 % [facility] ([place]) Comment: Interpretive Data Percent cell count reference ranges are not reported, since discordance with absolute values may lead to misinterpretation of CBC data. Current Interpretive Data was last revised on 2022. Testing performed by: [facility] [address], Medical Office [facility] [address], [place] [address] Monocyte pct 11.1 % [facility] ([place]) Comment: Interpretive Data Percent cell count reference ranges are not reported, since discordance with absolute values may lead to misinterpretation of CBC data. Current Interpretive Data was last revised on 2022. Testing performed by: [facility] [address], Medical Office [facility] [address], [place] [address] Eosinophil pct 2.8 % [facility] ([place]) Comment: Interpretive Data Percent cell count reference ranges are not reported, since discordance with absolute values may lead to misinterpretation of CBC data. Current Interpretive Data was last revised on 2022. Testing performed by: [facility] [address], Medical Office [facility] [address], [place] [address] Basophil pct 1.4 % [facility] ([place]) Comment: Interpretive Data Percent cell count reference ranges are not reported, since discordance with absolute values may lead to misinterpretation of CBC data. Current Interpretive Data was last revised on 2022. Testing performed by: [facility] [address], Medical Office [facility] [address], [place] [address] Blood 03/21/2024 2:35 PM CDT 03/21/2024 2:36 PM CDT Bronwyn Nava COMPUTER SECURITY SPECIALIST LAB BLOOD ORDERABLES Final Result [facility] ([place]) 1 [facility] Department [place] [address] * (ABNORMAL) CBC with auto differential (03/21/2024 2:35 PM CDT) WBC 6.5 3.8 - 9.9 K/cumm Comment:Testing performed by : [facility] [address], Medical Office [facility] [address], [place] [address] Hgb 12.9(L) 13.0 - 17.5 g/dL [facility] ([place]) Comment:Testing performed by : [facility] [address], Medical Office [facility] [address], [place] [address] Hct 43.2 38.9 - 50.3 % [facility] ([place]) Comment:Testing performed by : [facility] [address], Medical Office [facility] [address], [place] [address] Plt 222 150 - 400 K/cumm [facility] ([place]) Comment:Testing performed by : [facility] [address], Medical Office [facility] [address], [place] [address] MPV 9.6 9.1 - 12.3 fL [facility] ([place]) Comment:Testing performed by : [facility] [address], Medical Office [facility] B [facility] [address], [place] [address] RBC 5.64 4.30 - 5.80 M/cumm [facility] ([place]) Comment:Testing performed by : [facility] [address], Medical Office [facility] [address], [place] [address] MCV 76.6(L) 81.3 - 96.4 fL [facility] ([place]) Comment:Testing performed by : [facility] [address], Medical Office [facility] [address], [place] [address] MCH 22.9(L) 27.1 - 33.3 pg [facility] ([place]) Comment:Testing performed by : [facility] [address], Medical Office [facility] [address], [place] [address] MCHC 29.9(L) 32.3 - 35.7 g/dL [facility] ([place]) Comment:Testing performed by : [facility] [address], Medical Office [facility] B [facility] [address], [place] [address] RDW CV 17.1(H) 11.1 - 14.9 % [facility] ([place]) Comment:Testing performed by : [facility] [address], Medical Office [facility] B [facility] [address], [place] [address] RDW SD 46.5 35.7 - 48.1 fL [facility] ([place]) Comment:Testing performed by : [facility] [address], Medical Office [facility] [address], [place] [address] NRBC abs Not Measured 0.00 - 0.01 K/cumm [facility] ([place]) Comment:Testing performed by : [facility] [address], Medical Office [facility] [address], [place] [address] Blood 03/21/2024 2:35 PM CDT 03/21/2024 2:36 PM CDT Bronwyn Nava NP LAB BLOOD ORDERABLES Final Result [facility] ([place]) 1 [facility] [place] [address] * (ABNORMAL) eGFR (03/02/2024 10:13 AM CDT) [...] LAB BLOOD ORDERABLES Final R esult [facility] ([place]) 1 [facility] Department [place] [address] * Lipid panel (03/02/2024 10:13 [...] 03/02/2024 10:43 AM CDT Narrative [facility] ([place]) - 03/02/2024 11:10 AM CDT fax results to [phone] us Bijal Galindo MD LAB BLOOD ORDERABLES Final R esult [facility] ([place]) 1 [facility] Department [place] [address] * (ABNORMAL) Albumin Creatinine Ratio, Urine (12/14/2023 9:36 AM CDT) Albumin Ur 135.9 mg/L Comment: Interpretive Data No reference range established. Current interpretive data was last revised 2018. Testing performed by: [facility], [address] [place] [address]., [id number] Creatinine Ur 247.3 mg/dL [facility] ([place]ETTY) Comment: Interpretive Data No reference range established. Current interpretive data was last revised 2018. Testing performed by: [facility], [address] [place] [address]., [id number] Albumin Creatinine Ratio, Ur 55(H) 1 - 29 mg/g [facility] ([place]) Comment:Testing performed by : [address] [address] Urine 12/14/2023 9:36 AM CDT 12/14/2023 1:31 PM CDT Narrative [facility] ([place]) - 12/14/2023 2:34 PM CDT Non fasting us Christine Herzog MD LAB URINE ORDERABLES Final Result [facility] ([place]) 1 [facility] Department [place] [address] * (ABNORMAL) Hemoglobin A1c (12/14/2023 9:36 AM CDT) [facility] Hgb A1C 6.7(H) 4.0 - 5.6 % Estimated Average Glucose 146 mg/dL [facility] ([place]) Comment: The ADA recommends reporting an estimated Average Glucose (eAG) with all Hemoglobin A1c results using the equation derived from a study of 507 normal and diabetic adults. ??Minority populations were underrepresented and children were not included. ?? (Diabetes Care 31:1080-9412, 2008). ??The eAG is not equivalent to a fasting glucose. Blood 12/14/2023 9:36 AM CDT 12/14/2023 10:33 AM CDT Narrative [facility]) - 12/14/2023 11:02 AM CDT fasting Christine Herzog MD LAB BLOOD ORDERABLES Final Result [facility] ([place]) 1 [facility] [email or web address] [address] * PSA screen (01/26/2023 12:39 PM CDT) [facility] PSA-Total 2.31 <=6.20 ng/mL [facility] ([place]) Comment: Interpretive Data ?AGE ? SEX ?REFERENCE [...] LAB BLOOD ORDERABLES Final Result [facility] ([place]) 1 [facility] Department [place] [address] * CT Chest Abdomen Pelvis [...] PM T: ??12/08/2021 10:00 PM Report ID: [id number] Reading Location: ??[id number] Procedure Note Trey Siegel MD - 12/08/2021 [...] Trey Siegel M.D. ML: ML Report ID: [id number] Reading Location: [id number] Prema Zaman MD IM CT PROCEDURES Final Result * CT Lung Cancer Screening (09/09/2020 1:02 PM LANDFILL ATTENDANT) Anatomical Region Laterality Modality Chest N/A Computed Tomogra phy 09/09/2020 1:15 PM LANDFILL ATTENDANT Impressions 09/09/2020 1:19 PM LANDFILL ATTENDANT LUNG RADS CATEGORY 1 WITH NO SUSPICIOUS PULMONARY NODULES. COPD. ATHEROSCLEROSIS. CONTINUED [address] LOW-DOSE CT SURVEILLANCE Electronically signed by: Shorty Carvalho M.D. Narrative 09/09/2020 1:19 PM LANDFILL ATTENDANT EXAMINATION: CT LUNG CANCER SCREENING dated 09/09/2020 1:00 PM HISTORY: 74-year-old man lung cancer screening. 25 pack-year history, quit smoking July 2008 TECHNIQUE: Low-dose noncontrast spiral CT of multiplanar reconstructions FINDINGS: Comparison with multiple priors most recently dated 02/14/2019. Phonograph Needle Tip Maker radiograph once again demonstrates tortuous aorta with [...] with multiple priors most recently dated 02/14/2019. Phonograph Needle Tip Maker radiograph once again demonstrates tortuous aorta with [...] Craft MD - 01/09/2018 8:46 AM CDT [facility] Patient Name: Verna Zuniga Procedure Date: 01/09/2018 8:46 AM Date of : 1945 Admit Type: Outpatient Age: 72 Gender: Male Attending MD: Albert Craft MD Room: COUNT INCLUDES THE [facility] ENDOSCOPY CAPSULE Note Status: Finalized Patient [...] passed under direct vision.The Pediatric Colonoscope PCF-H190L [id number] was introduced through the anus and advanced [...] 8:46 AM Procedure Code(s): --- Professional --- 81488, Colonoscopy, flexible; with removal of tumor(s), polyp(s), or other lesion(s) by snare technique 01309, 59, Colonoscopy, flexible; with biopsy, single or multiple Diagnosis Code(s): --- Professional --- Z12.11, Encounter for screening for malignant neoplasm of colon D12.0, Benign neoplasm of cecum D12.2, Benign neoplasm of ascending colon D12.4, Benign neoplasm of descending colon K64.8, Other hemorrhoids CPT copyright 2017 [place] [employer]. All rights reserved. The codes documented in this report are preliminary and upon operations specialist reviewmay be revised to meet current compliance requirements. Recognized by the [place] [employer] for promoting quality in endoscopy Albert Craft MD ENDOSCOPY PROCEDURES Final Result * DIABETES FOOT EXAM (08/18/2016) Diabetic Foot Exam Unknown Historical Provider HEALTH MAINTENANCE Final Result * HEPATITIS C SCREENING (06/17/2016) HEP C Normal Historical Provider HEALTH MAINTENANCE Final Result from Last 3 Months or Most Recently Relevant to Health Maintenance Insurance MEDICARE [facility] [employer]ARE [facility] [employer] [facility] [employer] [facility] [facility] Advance Directives For more information, please contact: [phone] Documents on File Type Date Recorded Patient Braker Passenger Train Expl anation ADVANCE DIRECTIVE 09/16/2016 12:00 AM ENRIKE R OF CUSTOMER CARE AGENT FINANCIAL/MEDICAL * Full Code (Latest Code Status [...] 7:10 AM 01/09/2018 12:30 PM Care Teams Editor Sound Relationship Specialty Start Date End Date Christine Herzog MD [address] [place] [address] [place] [address] PCP - General Internal Medicine 12/02/21 Trey Pinedo MD [address] [place] [address] [address] [place] [address] Consulting Physician Neurology 05/09/19 Albert Craft MD [address] [place] [address] [place] [address] Consulting Physician Gastroenterology 03/11/22 Chintan Figueroa MD [address] [place] [address] [place] [address] Consulting Physician Hematology and Oncology 03/11/22 Jameel Bloom DPM [address] [facility] [place] [address] Consulting Physician Orthotics 03/11/22 Gadiel Genao MD [facility] [place] [id number] Surgeon Vascular Surgery 03/11/22
--- OUTSIDE RECORDS SUMMARY | 2024-06-18 19:08 | XMS_ITS | Encounter Summary ---
Author Organization [facility] Address [address] [place] [address] Care Team Providers Care International Broadcast Music Librarian Name Role Phone Trey Pinedo MD Unavailable [phone] Christine Herzog MD Primary Care Provide r Albert Craft MD Unavailable [phone] Chintan Figueroa MD Unavailable [phone] Jameel Bloom DPM Unavailable [phone] Gadiel Genao MD Unavailable [phone] Encounter Details Date Type Department Care Team (Late st Contact Info) Description 05/16/2024 2:15 PM SOLUTIONS ENGINEER Lab [address] [address] Polycythemia Social History Tobacco Use Types Packs/Day [...] on file Legal Sex Male 6:00 PM SOLUTIONS ENGINEER Gender Identity Not on file Sexual Orientation Straight 01/23/2021 10 :16 PM CDT documented as of this encounter Last Filed Vital Signs Vital Sign Reading Time Taken Comments Blood Pressure 122/73 05/16/2024 2:45 PM SOLUTIONS ENGINEER Pulse 62 05/16/2024 2:45 PM SOLUTIONS ENGINEER Temperature 36.3 ??C (97.4 ??F) 05/16/2024 2:45 PM CS T Respiratory Rate 20 05/16/2024 2:45 PM SOLUTIONS ENGINEER Oxygen Saturation 92% 05/16/2024 2:45 PM SOLUTIONS ENGINEER Inhaled Oxygen Concentration - - Weight - - Height - - Body Mass Index - - documented in this encounter Plan of Treatment Not on file documented as of this encounter Goals Goal Patient Goal Type Associated Problems Recent Progress Patient-Stated? Author GULSHAN General Goal - Patient schedules and keeps appointments with all recommended providers ACO Care Management On track(2022 11:14 AM SOLUTIONS ENGINEER) Sepideh Guo RN Note: Problem: Potential for [...] DIFFERENTIAL AUTO Routine 05/16/2024 2:4 5 PM SOLUTIONS ENGINEER Polycythemia CBC WITH AUTO DIFFERENTIAL Routine 05/16/2024 2:45 PM SOLUTIONS ENGINEER Polycythemia documented in this encounter Results * Differential, auto (05/16/2024 2:45 PM SOLUTIONS ENGINEER) Neutrophil abs 4.7 1.5 - 6.5 K/cumm Comment:Testing performed by : [facility] [address], Medical Office [facility] [address], [place] [address] Imm gran abs 0.0 0.0 - 0.1 K/cumm [facility] ([place]) Comment:Testing performed by : [facility] [address], Medical Office [facility] [address], [place] [address] Lymphocyte abs 1.1 0.8 - 3.3 K/cumm [facility] ([place]) Comment:Testing performed by : [facility] [address], Medical Office [facility] [address], [place] [address] Monocyte abs 0.8 0.2 - 0.8 K/cumm [facility] ([place]) Comment:Testing performed by : [facility] [address], Medical Office [facility] [address], [place] [address] Eosinophil abs 0.2 0.0 - 0.5 K/cumm [facility] ([place]) Comment:Testing performed by : [facility] [address], Medical Office [facility] [address], [place] [address] Basophil abs 0.1 0.0 - 0.1 K/cumm [facility] ([place]) Comment:Testing performed by : [facility] [address], Medical Office [facility] [address], [place] [address] Neutrophil pct 68.4 % [facility] ([place]) Comment: Interpretive Data Percent cell count reference ranges are not reported, since discordance with absolute values may lead to misinterpretation of CBC data. Current Interpretive Data was last revised on 2022. Testing performed by: [facility] [address], Medical Office [facility] [address], [place] [address] Imm gran pct 0.0 % [facility] ([place]) Comment: Interpretive Data Percent cell count reference ranges are not reported, since discordance with absolute values may lead to misinterpretation of CBC data. Current Interpretive Data was last revised on 2022. Testing performed by: [facility] [address], Medical Office [address], [place] [address] Lymphocyte pct 16.6 % [facility] ([place]) Comment: Interpretive Data Percent cell count reference ranges are not reported, since discordance with absolute values may lead to misinterpretation of CBC data. Current Interpretive Data was last revised on 2022. Testing performed by: [facility] [address], Medical Office [address], [place] [address] Monocyte pct 11.0 % [facility] ([place]) Comment: Interpretive Data Percent cell count reference ranges are not reported, since discordance with absolute values may lead to misinterpretation of CBC data. Current Interpretive Data was last revised on 2022. Testing performed by: [facility] [address], Medical Office [address], [place] [address] Eosinophil pct 2.2 % [facility] ([place]) Comment: Interpretive Data Percent cell count reference ranges are not reported, since discordance with absolute values may lead to misinterpretation of CBC data. Current Interpretive Data was last revised on 2022. Testing performed by: [facility] [address], Medical Office [address], [place] [address] Basophil pct 1.8 % [facility] ([place]) Comment: Interpretive Data Percent cell count reference ranges are not reported, since discordance with absolute values may lead to misinterpretation of CBC data. Current Interpretive Data was last revised on 2022. Testing performed by: [facility] [address], Medical Office [address], [place] [address] Blood 05/16/2024 2:45 PM SOLUTIONS ENGINEER 05/16/2024 2:49 PM SOLUTIONS ENGINEER Bronwyn Nava NATURAL RESOURCE ECONOMIST LAB BLOOD ORDERABLES Final Result [facility] CAR[facility]EL (BETTY) 1 [facility] [place] [address] * (ABNORMAL) CBC with auto differential (05/16/2024 2:45 PM SOLUTIONS ENGINEER) WBC 6.6 3.8 - 9.9 K/cumm Comment:Testing performed by : [place], [address] Hgb 14.3 13.0 - 17.5 g/dL [facility] ([place]) Comment:Testing performed by : [place], [address] Hct 48.5 38.9 - 50.3 % [facility] ([place]) Comment:Testing performed by : [place], [address] Plt 197 150 - 400 K/cumm [facility] ([place]) Comment:Testing performed by : [place], [address] MPV 11.1 9.1 - 12.3 fL [facility] ([place]) Comment:Testing performed by : [place], [address] RBC 6.22(H) 4.30 - 5.80 M/cumm [facility] ([place]) Comment:Testing performed by : [place], [address] MCV 78.0(L) 81.3 - 96.4 fL [facility] ([place]) Comment:Testing performed by : [place], [address] MCH 23.0(L) 27.1 - 33.3 pg [facility] ([place]) Comment:Testing performed by : [place], [address] MCHC 29.5(L) 32.3 - 35.7 g/dL [facility] ([place]) Comment:Testing performed by : [place], [address] RDW CV 18.8(H) 11.1 - 14.9 % [facility] ([place]) Comment:Testing performed by : [place], [address] RDW SD 50.4(H) 35.7 - 48.1 fL [facility] ([place]) Comment:Testing performed by : [facility], [place], [address] NRBC abs Not Measured 0.00 - 0.01 K/cumm [facility]UB[facility] CARMIC[facility]EL ([place]) Comment:Testing performed by : [facility], [facility], [place], [address] Blood 05/16/2024 2:45 PM SOLUTIONS ENGINEER 05/16/2024 2:49 PM SOLUTIONS ENGINEER Bronwyn Nava NATURAL RESOURCE ECONOMIST LAB BLOOD ORDERABLES Final Result RUBENS CARMICHAEL ([place]) 1 [facility] [place] [address] documented in this encounter Visit Diagnoses Diagnosis Polycythemia Polycythemia, secondary documented in this encounter Care Teams International Broadcast Music Librarian Relationship Specialty Start Date End Date Christine Herzog MD [address] [place] [address] [address] [place] [address] PCP - General Internal Medicine 12/02/21 Trey Pinedo MD [address] [place] [address] [address] [place] [address] Consulting Physician Neurology 05/09/19 Albert Craft MD [address] [place] [address] [address] [place] [address] Consulting Physician Gastroenterology 03/11/22 Chintan Figueroa MD [address] [facility] [address] [place] [address] Consulting Physician Hematology and Oncology 03/11/22 Jameel Bloom DPM [address] [place] [address] Consulting Physician Orthotics 03/11/22 Gadiel Genao MD [facility] [place] [address] Surgeon Vascular Surgery 03/11/22 documented as of this encounter
--- OUTSIDE RECORDS SUMMARY | 2024-06-18 19:08 | XMS_ITS | Encounter Summary ---
Author Organization [facility] Address [address] [place] [address] Phone Care Team Providers Care Supervisor International Reservations Name Role Phone Trey Pinedo MD Unavailable [phone] Christine Herzog MD Primary Care Provide r Albert Craft MD Unavailable [phone] Chintan Figueroa MD Unavailable [phone] Jameel Bloom DPM Unavailable [phone] Gadiel Genao MD Unavailable [phone] Reason for Referral * Consultation (Routine) - Authorized Specialty Diagnoses / Procedures Referred By Contac t Referred To Contact Occupational Therapy Diagnoses Lewy body dementia, unspecified dementia severity, unspecified whether behavioral, psychotic, or mood disturbance or anxiety (HCC) Personal care impairment Requires daily assistance for activities of daily living (ADL) and comfort needs Caregiver stress Hypersexuality Melvi Delarosa NP [address] [facility] [id number] [place] [address] Phone: tel: fax: [facility] [address] [place] [phone] Phone: tel: fax: Referral ID Status Reason Start Date Expiration Date Visits Requested Visits Authorized [id number] Authorized Specialty Services Required 11/23/2023 12/22/2024 12 12 Question Answer PTRFR OT Evaluate and Treat Therapy options discussed with patient? Yes Location provided for therapy services is: Patient requested/Patient preferred Please select the performing region: External Order [171] To loc/pos [facility] [[id number]] Comments Please contact their son Ian at [phone] Encounter Details Date Type Department Care Team (Late st Contact Info) Description 11/23/2023 10:30 AM CDT Telemedicine [facility] [address] [place] [address] Melvi Delarosa NP [address] [facility] [phone] [place] [address] Lewy body dementia, unspecified dementia severity, unspecified [...] attend chur ch or roman catholic services? Patient declined 09/28/2022 Do you belong [...] on file Legal Sex Male 6:00 PM WEED CONTROL INSPECTOR Gender Identity Not on file Sexual [...] Program, from The Alzheimer's Association, please call [phone], or you can register online [email or web address]. Driving: You have retired from driving, and we are in agreement with this decision Level of Care Recommendation: Current level of care Legal: No legal concerns were discussed today. RESOURCES FOR ADDITIONAL INFORMATION AND SUPPORT Opportunities to participate in research can be found at: trialmatch.alz.org Access TrialMatch online. For additional assistance, email or call [phone] (press 1 for clinical trials). ClinicalTrials.gov is a resource provided by the U.S. National Library of Medicine. You can look upclinical trials (research opportunities) online At clinicaltrials.gov Alzheimer's Association [facility] Chapter: ; (toll free); http://www.alz.org, The Alzheimer's Association 23/01 Helpline provides reliable information and support to all those who need assistance. Call toll-free anytime day or night at . Caregiver Guide: tips for caregivers of people with Alzheimer's dementia, www.laura.nih.gov/Alzheimers /Publication/Cowrzr-idekhp-iompuzlabr-disease/about-guide [facility], [address] [place]. [address], , Occupational Therapists who offers caregiver training, family support, and in home safety assessments at no cost. [facility] Agency on Aging (serving [facility]) http://[facility].[place].[facility]/government/hslaaa.html [facility] Agency on Aging serving [facility] and [facility] http://www.[email or web address].org If you need to reach our office, please call our nurse at [phone], option 4, leave a message, this voicemail is checked several times per day. If you need to contact our high school social studies tutor: Isreal Fan or Matteo Butcher, from the Alzheimer's Association, please call [phone] Future Appointments Date Time Provider Department Center 11/30/2023 12:30 PM [facility] CANCER CTR LAB 1 [facility] CNCR CTR [facility] Medical 11/30/2023 1:00 PM Monika Castellano CHILD DAY CARE TEACHER ONC [facility] B134 Oncology 11/30/2023 1:30 PM B [facility] INFS POD 1 B CNCR CTR [facility] Medical 12/14/2023 3:30 PM Christine Herzog [...] via ZOOM VISIT Melvi ARRIAGA (Nurse Practitioner) [facility] Department of Neurology Patient Name: VERNA ZUNIGA Medical Record Number (MRN): [id number] Date of (): 1945 Encounter Date: 11/23/2023 [...] past 6-12 months. They have moved to [place] . He did well with the move. 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 Medical Records Review: I reviewed [facility] notes and prior Neuropsychometric testing scores. 09/19/2022 7:00 AM [facility] Neurobehavioral Status Exam Results Repository ICF signed? No Verbal Fluency Total Score 8 [place] Naming (15 item) Total Score 13 MMSE [...] Dementia Ratin09/19/2022 7:00 AM 11/23/2023 7:00 AM [facility] CDR/DIAGNOSIS NEW Repository ICF signed? No Memory [...] send the recommendation to Dr. Galindo his host and hostess. He is having increased sexual behaviors towards [...] would benefit from a referral to [facility]. PLAN OF CARE: (Shared with CS, CS's) Referral made to community resources (referral to AIRCRAFT MAGNETO MECHANIC) 1. Lewy body dementia, unspecified dementia severity, unspecified whether behavioral, psychotic, ormood disturbance or anxiety (HCC) 2. Personal care impairment 3. Requires daily assistance for activities of daily living (ADL) and comfort needs 4. Caregiver stress 5. Hypersexuality Orders Placed This Encounter Ambulatory referral order to Occupational Therapy - Please contact their son Ian at [phone] Referral Priority: Routine Referral Type: Consultation Referral Reason: Specialty Services Required Referral Location: [facility] Requested Specialty: Occupational Therapy Number of [...] Program, from The Alzheimer's Association, please call [phone], or you can register online [email or web address]. Driving: You have retired from driving, and we are in agreement with this decision Level of Care Recommendation: Current level of care Legal: No legal concerns were discussed today. RESOURCES FOR ADDITIONAL INFORMATION AND SUPPORT Opportunities to participate in research can be found at: trialmatch.alz.org Access TrialMatch online. For additional assistance, email TrialMatch@Global Animationz.org or call 037.398.0833 (press 1 for clinical trials). ClinicalTrials.gov is a resource provided by the U.S. National Library of Medicine. You can look upclinical trials (research opportunities) online At clinicaltrials.gov Alzheimer's Association [facility] Chapter: ; (toll free); http://www.alz.org, The Alzheimer's Association 23/01 Helpline provides reliable information and support to all those who need assistance. Call toll-free anytime day or night at . Caregiver Guide: tips for caregivers of people with Alzheimer's dementia, www.laura.nih.gov/Alzheimers /Publication/Smxlyf-kknhzn-fwkwupvisy-disease/about-guide [facility], [address] [place]. [address], , Occupational Therapists who offers caregiver training, family support, and in home safety assessments at no cost. [facility] Agency on Aging (serving [facility]) http://[facility].[place].[facility]/government/hslaaa.html [facility] Agency on Aging (serving [facility] http://www.[facility] health[facility].org If you need to reach our office, please call our nurse at [phone], option 4, leave a message, this voicemail is checked several times per day. If you need to contact our high school social studies tutor: Isreal Fan or Matteo Butcher, from the Alzheimer's Association, please call [phone] Future Appointments Date Time Provider Department Center 11/30/2023 12:30 PM B [facility] CANCER CTR LAB 1 B CNCR CTR [facility] Medical 11/30/2023 1:00 PM Monika Castellano NP ONC [facility] B134 DELCID Oncology 11/30/2023 1:30 PM [facility] INFS POD 1 [facility] CNCR [facility] Medical 12/14/2023 3:30 PM Christine Herzog MD PCP FM 220 PC This was a telemedicine visit with Verna Zuniga and son which took place via Real-time video connection (InTouch, Zoom or similar). During the visit, I was located in the office and the patient was located at home in the state of [place]. The patient visit started at 1030 and [...] or video visit [facility]. After being given [...] ACO Care Management On track(2022 11:14 AM WEED CONTROL INSPECTOR) Sepideh Guo, SUE Note: Problem: Potential for [...] documented in this encounter Care Teams Supervisor International Reservations Relationship Specialty Start Date End Date Christine Herzog MD [address] [facility] [address] [place] [address] PCP - General Internal Medicine 12/02/21 Trey Pinedo MD [address] [place] [address] [address] [place] [address] Consulting Physician Neurology 05/09/19 Albert Craft MD [address] [place] [address] [address] [place] [address] Consulting Physician Gastroenterology 03/11/22 Chintan Figueroa MD [address] [place] [address] [address] [place] [address] Consulting Physician Hematology and Oncology 03/11/22 Jameel Bloom DPM [address] [place] [address] Consulting Physician Orthotics 03/11/22 Gadiel Genao MD [address] [place] [address] Surgeon Vascular Surgery 03/11/22 documented as of this encounter
--- OUTSIDE RECORDS SUMMARY | 2024-06-18 19:08 | XMS_ITS | Encounter Summary ---
Author Organization [facility] Address [address] [place] [address] Phone Care Team Providers Care Horticulture Instructor Name Role Phone Trey Pinedo MD Unavailable [phone] Christine Herzog MD Primary Care Provide r Albert Craft MD Unavailable [phone] Chintan Figueroa MD Unavailable [phone] Jameel Bloom DPM Unavailable [phone] Gadiel Genao MD Unavailable [phone] Encounter Details Date Type Department Care Team (Late st Contact Info) Description 11/15/2023 Telephone [facility] [address] [facility] 6th [address] [place] [address] Johanna Bentley Social History Tobacco [...] often do you attend chur ch or restoration services? Patient declined 09/28/2022 Do [...] file Legal Sex Male 6:00 PM EDUCATION ADMINISTRATOR Gender Identity Not on file Sexual [...] Care Management On track(2022 11:14 AM EDUCATION ADMINISTRATOR) Sepideh Guo RN Note: Problem: Potential for [...] on filedocumented in this encounter Care Teams Horticulture Instructor Relationship Specialty Start Date End Date Christine Herzog MD [address] [facility] [address] [place] [address] PCP - General Internal Medicine 12/02/21 Trey Pinedo MD [address] [facility] [address] [place] [address] Consulting Physician Neurology 05/09/19 Albert Craft MD [address] [facility] [address] [place] [address] Consulting Physician Gastroenterology 03/11/22 Chintan Figueora MD [address] [facility] [address] [place] [address] Consulting Physician Hematology and Oncology 03/11/22 Jameel Bloom DPM [address] [place] [address] Consulting Physician Orthotics 03/11/22 Gadiel Genao MD [address] [place] [address] Surgeon Vascular Surgery 03/11/22 documented as of this encounter
--- OUTSIDE RECORDS SUMMARY | 2024-06-18 19:08 | XMS_ITS | Encounter Summary ---
Author Organization [facility] Healthcare Address [address] [place] [address] Care Team Providers Care Rn Community Health Name Role Phone Trey Pinedo MD Unavailable [phone] Christine Herzog MD Primary Care Provide r Albert Craft MD Unavailable [phone] Chintan Figueroa MD Unavailable [phone] Jameel Bloom DPM Unavailable [phone] Gadiel Genao MD Unavailable [phone] Reason for Visit * Reason Comments Urinary Symptom Increased confusion, increased urinary incontinence that has been on going for about a week, nothing otc. Encounter Details Date Type Department Care Team (Late st Contact Info) Description 01/18/2024 5:30 PM CDT Office Visit [facility] Medical Group [facility] [place] [address] [place] [phone] Loida Sánchez NP [address] [place] [address] Urinary incontinence, unspecified type (Primary Dx); Confusion [...] any clubs o r organizations such as restoration groups, unions, fraternal or athletic groups, or [...] on file Legal Sex Male 6:00 PM WHITEWATER RIVER GUIDE Gender Identity Not on file Sexual Orientation [...] lives with his son who is his manager rail. His son is providing the history today. [...] Large Ketones, ur, POC Negative Negative Specific Fletcher, POC 1.030 1.003 - 1.030 Blood, ur, POC Negative Negative pH, ur, POC 6.0 5.0 - 8.0 Protein, ur, POC 30. (A) Negative Urobilinogen, urine, POC 0.2 0.2 - 1.0 mg/dL Nitrite, ur, POC Negative Negative Leukocytes, ur, POC Negative Negative Lot Number [id number] Patient Education: Disposition Treatment plan including expectations, [...] ACO Care Management On track(2022 11:14 AM WH[place]WATER RIVER GUIDE) Sepideh Guo RN Note: Problem: Potential for [...] Large Ketones, ur, POC Negative Negative Specific Fletcher, POC 1.030 1.003 - 1.030 Blood, ur, POC Negative Negative pH, ur, POC 6.0 5.0 - 8.0 Protein, ur, POC 30.(A) Negative Urobilinogen, urine, POC 0.2 0.2 - 1.0 mg/dL Nitrite, ur, POC Negative Negative Leukocytes, ur, POC Negative Negative Lot Number [id number] Urine 01/18/2024 5:54 PM CDT us Loida Sánchez NP POINT OF CARE TEST ORDERABLES Fi nal Result * Urine culture Urine, clean voided (01/18/2024 5:39 PM CDT) Report Final Report: Less than 100,000 colonies/mL (clinically insignificant growth based on current clinical standards) Comment:Testing performed by : [facility], [address] [place]., [address] Organism (CLINICALLY INSIGNIFICANT GROWTH [facility] Urine, clean voided 01/18/2024 5:39 PM CDT 01/19/2024 9:39 AM CDT Narrative [facility] - 01/20/2024 2:27 PM CDT Testing performed by [facility] Microbiology Laboratory ([phone]) us Loida Sánchez NP LAB MICROBIOLOGY - GENERAL ORDER KATHLEEN Final Result [facility] [id number] Department [place] [address] documented in this encounter Visit Diagnoses Diagnosis Urinary incontinence, unspecified type- Primary Confusion Unspecified psychosis Urinary incontinence, unspecified type documented in this encounter Care Teams Rn Community Health Relationship Specialty Start Date End Date Christine Herzog MD [address] [facility] [address] [place] [address] PCP - General Internal Medicine 12/02/21 Trey Pinedo MD [address] [place] [address] [address] [place] [address] Consulting Physician Neurology 05/09/19 Albert Craft MD [address] [facility] [address] [place] [address] Consulting Physician Gastroenterology 03/11/22 Chintan Figueroa MD [address] [place] [address] [address] [place] [address] Consulting Physician Hematology and Oncology 03/11/22 Jameel Bloom DPM [address] [place] [address] Consulting Physician Orthotics 03/11/22 Gadiel Genao MD [address] [place] [address] Surgeon Vascular Surgery 03/11/22 documented as of this encounter
--- OUTSIDE RECORDS SUMMARY | 2024-06-18 19:08 | XMS_ITS | Encounter Summary ---
Author Organization [facility] Healthcare Address [address] [place] [address] Care Team Providers Care Loss Prevention Manager Name Role Phone Trey Pinedo MD Unavailable [phone] Christine Herzog MD Primary Care Provide r Albert Craft MD Unavailable [phone] Chintan Figueroa MD Unavailable [phone] Jameel Bloom DPM Unavailable [phone] Gadiel Genao MD Unavailable [phone] Encounter Details Date Type Department Care Team (Late st Contact Info) Description 01/20/2024 Telephone [facility] Medical Group [facility] [place] [address] [place] [phone] Negar Dozier MA Social History Tobacco Use [...] place to sleep or slept in a correction (including now)? No 09/28/2022 Personal Safety Answer Date Recorded Have you ever been in or are you currently in a harmful physical or emotional relationship or is someone making you feel afraid or unsafe? 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 * Telephone Encounter - Negar Dozier MA [...] ACO Care Management On track(2022 11:14 AM INDUSTRIAL ROBOTICS MECHANIC) Sepideh Guo, SUE Note: Problem: Potential [...] on filedocumented in this encounter Care Teams Loss Prevention Manager Relationship Specialty Start Date End Date Christine Herzog MD [address] [facility] [address] [place] [address] PCP - General Internal Medicine 12/02/21 Trey Pinedo MD [address] [place] [address] [address] [place] [address] Consulting Physician Neurology 05/09/19 Albert Craft MD [address] [place] [address] [address] [place] [address] Consulting Physician Gastroenterology 03/11/22 Chintan Figueroa MD [address] [place] [address] [address] [place] [address] Consulting Physician Hematology and Oncology 03/11/22 Jameel Bloom DPM [address] [place] [address] Consulting Physician Orthotics 03/11/22 Gadiel Genao MD [address] [place] [address] Surgeon Vascular Surgery 03/11/22 documented as of this encounter
--- OUTSIDE RECORDS SUMMARY | 2024-06-18 19:09 | XMS_ITS | Encounter Summary ---
Author Organization [facility] Healthcare Address [address] [place] [address] Care Team Providers Care Curer Foam Rubber Name Role Phone Trey Pinedo MD Unavailable [phone] Christine Herzog MD Primary Care Provide r Albert Craft MD Unavailable [phone] Chintan Figueroa MD Unavailable [phone] Jameel Bloom DPM Unavailable [phone] Gadiel Genao MD Unavailable [phone] Encounter Details Date Type Department Care Team (Late st Contact Info) Description 01/26/2023 1:30 PM CDT Lab [facility] [address] [facility] [address] [place] [address] Polycythemia Social History Tobacco Use Types Packs/Day [...] often do you attend chur ch or jain services? 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 Gender Identity Not on file Sexual [...] ACO Care Management On track(2022 11:14 AM PHYSICAL SCIENCE PROFESSOR) Sepideh Guo, SUE Note: Problem: Potential for [...] 01/26/2023 1:08 PM CDT us Monika Castellano HYDRAULIC PLUMBER HELPER LAB BLOOD ORDERABLES Final Result [facility] ([place]) [address] [facility] Department [place] [address] * (ABNORMAL) CBC with auto differential (01/26/2023 [...] CDT 01/26/2023 1:08 PM CDT Monika Castellano HYDRAULIC PLUMBER HELPER LAB BLOOD ORDERABLES Final Result [facility] ([place]) [address] [facility] Department [place] [address] documented in this encounter Visit Diagnoses Diagnosis Polycythemia Polycythemia, secondary documented in this encounter Orders Appointment Requests Count Last Ordered Date Fi rst Ordered Date ONCBCN LAB APPOINTMENT 1 01/26/2023 documented in this encounter Care Teams Curer Foam Rubber Relationship Specialty Start Date End Date Christine Herzog MD [address] [facility] [address] [place] [address] PCP - General Internal Medicine 12/02/21 Trey Pinedo MD [address] [facility] [address] [place] [address] Consulting Physician Neurology 05/09/19 Albert Craft MD [address] [facility] [address] [place] [address] Consulting Physician Gastroenterology 03/11/22 Chintan Figueroa MD [address] [facility] [address] [place] [address] Consulting Physician Hematology and Oncology 03/11/22 Jameel Bloom DPM [address] [place] [address] Consulting Physician Orthotics 03/11/22 Gadiel Genao MD [address] [place] [address] Surgeon Vascular Surgery 03/11/22 documented as of this encounter
--- OUTSIDE RECORDS SUMMARY | 2024-06-18 19:09 | XMS_ITS | Encounter Summary ---
Author Organization [facility] Healthcare Address [address] [place] [address] Care Team Providers Care Billing Typist Name Role Phone Trey Pinedo MD Unavailable [phone] Christine Herzog MD Primary Care Provide r Albert Craft MD Unavailable [phone] Chintan Figueroa MD Unavailable [phone] Jameel Bloom DPM Unavailable [phone] Gadiel Genao MD Unavailable [phone] Encounter Details Date Type Department Care Team (Late st Contact Info) Description 03/23/2023 10:30 AM CDT [address] [address] Healthcare maintenance Social History Tobacco Use Types [...] often do you attend chur ch or confucianism services? 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 Author GULSHAN General Goal - Patient schedules and keeps appointments with all recommended providers ACO Care Management On track(2022 11:14 AM CHAIRMAN) Sepideh Guo RN Note: Problem: Potential for [...] * eGFR (03/23/2023 10:43 AM CDT) Pathologist [facility] eGFR 56 mL/min/1. 73 m2 [facility] ([place]) Comment: Interpretive Data Reference Interval Normal ?>/= [...] LAB BLOOD ORDERABLES Final Result [facility] ([place]) 1 [facility] Department [place] [address] * (ABNORMAL) Differential, auto (03/23/2023 10:43 AM [...] BLOOD ORDERABLES Final Result Performing Organization Address [facility] Co de Phone Number [facility] ([place]) 1 [facility] [place] [address] * (ABNORMAL) Hemoglobin A1c (03/23/2023 10:43 AM CDT) Hgb A1C 6.1(H) 4.0 - 5.6 % [facility] ([place]) Estimated Average Glucose 128 mg/dL [facility] ([place]) Comment: The ADA recommends reporting an estimated Average Glucose (eAG) with all Hemoglobin A1c results using the equation derived from a study of 507 normal and diabetic adults. ??Minority populations were underrepresented and children were not included. ?? (Diabetes Care 31:7054-9042, 2008). ??The eAG is not equivalent to a fasting glucose. Blood 03/23/2023 10:4 3 AM CDT 03/23/2023 10:51 AM CDT Narrative [facility] ([place]) - 03/23/2023 11:47 AM CDT Fasting . Patient will have done 1-2 weeks prior to apt on 03-23-23 Christine Herzog MD LAB BLOOD ORDERABLES Final Result Performing Organization Address [facility] de Phone Number [facility] ([place]) 1 [facility] [place] [employer] [place] [address] * Lipid panel (03/23/2023 10:43 AM CDT) [...] ORDERABLES Final Result [facility] ([place]) 1 [facility] Department [place] [address] * (ABNORMAL) Comprehensive metabolic panel (03/23/2023 10:43 [...] ORDERABLES Final Result [facility] ([place]) 1 [facility] Department [place] [address] * (ABNORMAL) CBC with auto differential (03/23/2023 [...] LAB BLOOD ORDERABLES Final Result [facility] ([place]) 1 [facility] Department [place] [address] documented in this encounter Visit Diagnoses Diagnosis Healthcare maintenance documented in this encounter Care Teams Billing Typist Relationship Specialty Start Date End Date Christine Herzog MD [address] [facility] [address] [place] [address] PCP - General Internal Medicine 12/02/21 Trey Pinedo MD [address] [place] [address] [address] [place] [address] Consulting Physician Neurology 05/09/19 Albert Craft MD [address] [facility] [address] [place] [address] Consulting Physician Gastroenterology 03/11/22 Chintan Figueroa MD [address] [facility] [address] [place] [address] Consulting Physician Hematology and Oncology 03/11/22 Jameel Bloom DPM [address] [place] [address] Consulting Physician Orthotics 03/11/22 Gadiel Genao MD [address] [place] [address] Surgeon Vascular Surgery 03/11/22 documented as of this encounter
--- OUTSIDE RECORDS SUMMARY | 2024-06-18 19:09 | XMS_ITS | Encounter Summary ---
Author Organization [facility] Healthcare Address [address] [place] [address] Care Team Providers Care Advertising Space Clerk Name Role Phone Trey Pinedo MD Unavailable [phone] Christine Herzog MD Primary Care Provide r Albert Craft MD Unavailable [phone] Chintan Figueroa MD Unavailable [phone] Jameel Bloom DPM Unavailable [phone] Gadiel Genao MD Unavailable [phone] Encounter Details Date Type Department Care Team (Late st Contact Info) Description 07/27/2023 1:30 PM LIEUTENANT FIRE FIGHTER Lab [address] [address] Polycythemia Social History Tobacco Use Types Packs/Day [...] often do you attend chur ch or zoroastrian services? Patient declined 09/28/2022 Do you belong [...] on file Legal Sex Male 6:00 PM LIEUTENANT FIRE FIGHTER Gender Identity Not on file Sexual Orientation Straight 01/23/2021 10 :16 PM CDT documented as of this encounter Last Filed Vital Signs Vital Sign Reading Time Taken Comments Blood Pressure 157/61 07/27/2023 2:02 PM LIEUTENANT FIRE FIGHTER Pulse 53 07/27/2023 2:02 PM LIEUTENANT FIRE FIGHTER Temperature 35.7 ??C (96.3 ??F) 07/27/2023 2:02 PM CS T Respiratory Rate 18 07/27/2023 2:02 PM LIEUTENANT FIRE FIGHTER Oxygen Saturation 98% 07/27/2023 2:02 PM LIEUTENANT FIRE FIGHTER Inhaled Oxygen Concentration - - Weight 92.2 kg (203 lb 3.2 oz) 07/27/2023 2:02 P M LIEUTENANT FIRE FIGHTER Height - - Body Mass Index 31.83 04/20/2023 1:22 PM CDT documented in this encounter Plan of Treatment Not on file documented as of this encounter Goals Goal Patient Goal Type Associated Problems Recent Progress Patient-Stated? Author GULSHAN General Goal - Patient schedules and keeps appointments with all recommended providers ACO Care Management On track(2022 11:14 AM LIEUTENANT FIRE FIGHTER) Sepideh Guo, SUE Note: Problem: Potential for [...] Diagnosis Comments EGFR Routine 07/27/2023 2:00 PM LIEUTENANT FIRE FIGHTER Polycythemia DIFFERENTIAL AUTO Routine 07/27/2023 2:0 0 PM LIEUTENANT FIRE FIGHTER Polycythemia CBC WITH AUTO DIFFERENTIAL Routine 07/27/2023 2:00 PM LIEUTENANT FIRE FIGHTER Polycythemia COMPREHENSIVE METABOLIC PANEL Routine 07/27/2023 2:00 PM LIEUTENANT FIRE FIGHTER Polycythemia documented in this encounter Results * eGFR (07/27/2023 2:00 PM LIEUTENANT FIRE FIGHTER) eGFR 53 mL/min/1. 73 m2 [facility] ([place]) Comment: Interpretive Data Reference Interval Normal ?>/= [...] was last reviewed 2021. Testing performed by: [facility], [facility], [place], [address] Blood 07/27/2023 2:00 PM LIEUTENANT FIRE FIGHTER 07/27/2023 3:25 PM LIEUTENANT FIRE FIGHTER us Monika Castellano SPEECH WRITER LAB BLOOD ORDERABLES Final Result [facility] ([place]) 1 [facility] Department [place] [address] * Differential, auto (07/27/2023 2:00 PM LIEUTENANT FIRE FIGHTER) Neutrophil abs 4.5 1.5 - 6.5 K/cumm [facility] ([place]) Comment:Testing performed by : [facility] [address], Medical Office [facility] B [facility] [address], [place] [address] Imm gran abs 0.0 0.0 - 0.1 K/cumm [facility] ([place]) Comment:Testing performed by : [facility] [address], Medical Office [facility] [address], [place] [address] Lymphocyte abs 1.4 0.8 - 3.3 K/cumm [facility] ([place]) Comment:Testing performed by : [facility] [address], Medical Office [facility] [address], [place] [address] Monocyte abs 0.7 0.2 - 0.8 K/cumm [facility] ([place]) Comment:Testing performed by : [facility] [address], Medical Office [facility] [address], [place] [address] Eosinophil abs 0.2 0.0 - 0.5 K/cumm [facility] ([place]) Comment:Testing performed by : [facility] [address], Medical Office [facility] [address], [place] [address] Basophil abs 0.1 0.0 - 0.1 K/cumm [facility] ([place]) Comment:Testing performed by : [facility] [address], Medical Office [facility] [address], [place] [address] Neutrophil pct 65.5 % [facility] ([place]) Comment: Interpretive Data Percent cell count reference ranges are not reported, since discordance with absolute values may lead to misinterpretation of CBC data. Current Interpretive Data was last revised on 2022. Testing performed by: [facility] [address], Medical Office [address], [place] [address] Imm gran pct 0.3 % [facility] ([place]) Comment: Interpretive Data Percent cell count reference ranges are not reported, since discordance with absolute values may lead to misinterpretation of CBC data. Current Interpretive Data was last revised on 2022. Testing performed by: [facility] [address], Medical Office d[address], [place] [address] Lymphocyte pct 20.3 % [facility] ([place]) Comment: Interpretive Data Percent cell count reference ranges are not reported, since discordance with absolute values may lead to misinterpretation of CBC data. Current Interpretive Data was last revised on 2022. Testing performed by: [facility] [address], Medical Office [address], [place] [address] Monocyte pct 9.8 % [facility] ([place]) Comment: Interpretive Data Percent cell count reference ranges are not reported, since discordance with absolute values may lead to misinterpretation of CBC data. Current Interpretive Data was last revised on 2022. Testing performed by: [facility] [address], Medical Office [facility] [address], [place] [address] Eosinophil pct 2.6 % [facility] ([place]) Comment: Interpretive Data Percent cell count reference ranges are not reported, since discordance with absolute values may lead to misinterpretation of CBC data. Current Interpretive Data was last revised on 2022. Testing performed by: [facility] [address], Medical Office [facility] [address], [place] [address] Basophil pct 1.5 % [facility] ([place]) Comment: Interpretive Data Percent cell count reference ranges are not reported, since discordance with absolute values may lead to misinterpretation of CBC data. Current Interpretive Data was last revised on 2022. Testing performed by: [facility] [address], Medical Office [address], [place] [address] Blood 07/27/2023 2:00 PM LIEUTENANT FIRE FIGHTER 07/27/2023 2:02 PM LIEUTENANT FIRE FIGHTER Monika Castellano SPEECH WRITER LAB BLOOD ORDERABLES Final Result [facility] ([place]) 1 [facility] Department [place] [address] * (ABNORMAL) CBC with auto differential (07/27/2023 2:00 PM LIEUTENANT FIRE FIGHTER) WBC 6.8 3.8 - 9.9 K/cumm [facility] ([place]) Comment:Testing performed by : [facility] [address], Medical Office [address], [place] [address] Hgb 14.4 13.0 - 17.5 g/dL [facility] ([place]) Comment:Testing performed by : [facility] [address], Medical Office [address], [place] [address] Hct 47.0 38.9 - 50.3 % [facility] ([place]) Comment:Testing performed by : [facility] [address], Medical Office [address], [place] [address] Plt 205 150 - 400 K/cumm [facility] ([place]) Comment:Testing performed by : [facility] [address], Medical Office [address], [place] [address] MPV 10.2 9.1 - 12.3 fL [facility] ([place]) Comment:Testing performed by : [facility] [address], Medical Office [address], [place] [address] RBC 5.89(H) 4.30 - 5.80 M/cumm [facility] ([place]) Comment:Testing performed by : [facility] [address], Medical Office [address], [place] [address] MCV 79.8(L) 81.3 - 96.4 fL [facility] ([place]) Comment:Testing performed by : [facility] [address], Medical Office [address], [place] [address] MCH 24.4(L) 27.1 - 33.3 pg [facility] ([place]) Comment:Testing performed by : [facility] [address], Medical Office [facility] [address], [place] [address] MCHC 30.6(L) 32.3 - 35.7 g/dL [facility] ([place]) Comment:Testing performed by : [facility] [address], Medical Office [facility] [address], [place] [address] RDW CV 16.0(H) 11.1 - 14.9 % [facility] ([place]) Comment:Testing performed by : [facility] [address], Medical Office [facility] [address], [place] [address] RDW SD 46.0 35.7 - 48.1 fL [facility] ([place]) Comment:Testing performed by : [facility] [address], Medical Office [facility] [address], [place] [address] NRBC abs Not Measured 0.00 - 0.01 K/cumm [facility] ([place]) Comment:Testing performed by : [facility] [address], Medical Office [facility] [address], [place] [address] Blood 07/27/2023 2:0 0 PM LIEUTENANT FIRE FIGHTER 07/27/2023 2:02 PM LIEUTENANT FIRE FIGHTER Monika Castellano SPEECH WRITER LAB BLOOD ORDERABLES Final Result [facility] ([place]) 1 [facility] Department [place] [address] * (ABNORMAL) Comprehensive metabolic panel (07/27/2023 2:00 PM LIEUTENANT FIRE FIGHTER) Sodium 144 135 - 145 mmol/L [facility] ([place]) Comment:Testing performed by : [facility], [place], [address] Potassium, pl 3.9 3.3 - 4.9 mmol/L [facility] ([place]) Comment:Testing performed by : [facility], [place], [address] Chloride 107 97 - 110 mmol/L [facility] ([place]) Comment:Testing performed by : [facility], [place], [address] CO2 28 22 - 32 mmol/L [facility] ([place]) Comment:Testing performed by : [facility], [place], [address] Anion gap 9 2 - 15 mmol/L [facility] ([place]) Comment:Testing performed by : [facility], [facility], [place], [address] BUN 27(H) 6 - 25 mg/dL [facility] ([place]) Comment:Testing performed by : [facility], [place], [address] Creatinine 1.38(H) 0.80 - 1.30 mg/dL [facility] ([place]) Comment:Testing performed by : [facility], [place], [address] Glucose 92 70 - 199 mg/dL [facility] ([place]) Comment: Interpretive Data Fasting glucose >/= 126 [...] was last revised 2022. Testing performed by: [facility], [place], [address] Calcium 9.3 8.5 - 10.3 mg/dL [facility] ([place]) Comment:Testing performed by : [facility], [place], [address] Bilirubin, total 0.4 0.1 - 1.2 mg/dL [facility] ([place]) Comment:Testing performed by : [facility], [place], [address] Protein, pl 7.1 6.5 - 8.5 g/dL [facility] ([place]) Comment:Testing performed by : [facility], [place], [address] Albumin 4.2 3.5 - 5.0 g/dL [facility] ([place]) Comment:Testing performed by : [facility], [place], [address] Alk phos 85 40 - 130 Units/L [facility] ([place]) Comment:Testing performed by : [facility], [facility], [place], [address] ALT 19 7 - 55 Units/L [facility] ([place]) Comment:Testing performed by : [facility], [facility], [place], [address] AST 15 10 - 50 Units/L [facility] ([place]) Comment:Testing performed by : [facility], [facility], [place], [address] Blood 07/27/2023 2:00 PM LIEUTENANT FIRE FIGHTER 07/27/2023 3:25 PM LIEUTENANT FIRE FIGHTER us Monika Castellano SPEECH WRITER LAB BLOOD ORDERABLES Final Result [facility] ([place]) 1 [facility] Department [place] [address] documented in this encounter Visit Diagnoses Diagnosis Polycythemia Polycythemia, secondary documented in this encounter Care Teams Advertising Space Clerk Relationship Specialty Start Date End Date Christine Herzog MD [address] [place] [address] [address] [place] [address] PCP - General Internal Medicine 12/02/21 Trey Pinedo MD [address] [place] [address] [address] [place] [address] Consulting Physician Neurology 05/09/19 Albert Craft MD [address] [place] [address] [address] [place] [address] Consulting Physician Gastroenterology 03/11/22 Chintan Figueroa MD [address] [place] [address] [address] [place] [address] Consulting Physician Hematology and Oncology 03/11/22 Jameel Bloom DPM [address] [place] [address] Consulting Physician Orthotics 03/11/22 Gadiel Genao MD [address] [place] [address] Surgeon Vascular Surgery 03/11/22 documented as of this encounter
--- OUTSIDE RECORDS SUMMARY | 2024-06-18 19:09 | XMS_ITS | Encounter Summary ---
Author Organization [facility] Healthcare Address [address] [place] [address] Care Team Providers Care Shipper Receiver Name Role Phone Trey Pinedo MD Unavailable [phone] Christine Herzog MD Primary Care Provide r Albert Craft MD Unavailable [phone] Chintan Figueroa MD Unavailable [phone] Jameel Bloom DPM Unavailable [phone] Gadiel Genao MD Unavailable [phone] Encounter Details Date Type Department Care Team (Late st Contact Info) Description 11/04/2023 11:00 AM CDT [address] [address] Current use of exterminator termite anticoagulation; Essential hypertension; Pure hypercholesterolemia; Paroxysmal atrial fibrillation (CMS/HCC) (HCC); Bradycardia; Pulmonary hypertension (HCC); Biatrial enlargement; Nonrheumatic tricuspid valve regurgitation; Mixed hyperlipidemia; Coronary artery disease involving [place] coronary artery of [place] heart without angina pectoris Social History Tobacco [...] any clubs o r organizations such as anglican groups, unions, fraternal or athletic groups, or [...] file Legal Sex Male 6:00 PM HOT DIE PICKER Gender Identity Not on file Sexual Orientation Straight 01/23/2021 10 :16 PM CDT documented as of this encounter Plan of Treatment Not on file documented as of this encounter Goals Goal Patient Goal Type Associated Problems Recent Progress Patient-Stated? Author GULSHAN General Goal - Patient schedules and keeps appointments with all recommended providers ACO Care Management On track(2022 11:14 AM HOT DIE PICKER) No Sepideh Hi RN Note: Problem: Potential [...] 11/04/2023 11:12 AM CDT Current use of group home anticoagulation CBC WITH AUTO DIFFERENTIAL Routine 11/04/2023 11:12 AM CDT Current use of group home anticoagulation LIPID PANEL Routine 11/04/2023 11:12 AM [...] MD LAB BLOOD ORDERABLES Final R esult [facility] [place]) [address] [facility] [place] [phone] * (ABNORMAL) Differential, auto (11/04/2023 11:12 AM [...] BLOOD ORDERABLES Final R esult [facility] ([place]) 1 [facility] Department [place] [address] * (ABNORMAL) Lipid panel (11/04/2023 11:12 AM [...] BLOOD ORDERABLES Final R esult [facility] ([place]) 1 [facility] Department of Laboratories [place], [place] [address] * (ABNORMAL) Comprehensive metabolic panel (11/04/2023 11:12 AM CDT) Sodium 141 135 - 145 mmol/L Potassium, pl 4.6 3.3 - 4.9 mmol/L [facility] ([place]) Chloride 105 97 - 110 mmol/L [facility] ([place]) CO2 26 22 - 32 mmol/L [facility] ([place]) Anion gap 9 2 - 15 mmol/L [facility] ([place]) BUN 25 6 - 25 mg/dL [facility] ([place]) Creatinine 1.43(H) 0.80 - 1.30 mg/dL [facility] ([place]) Glucose 117 70 - 199 mg/dL [facility] ([place]) Comment: Interpretive Data Fasting glucose [...] MD LAB BLOOD ORDERABLES Final R esult [facility] ([place]) 1 [facility] Department [place] [address] * (ABNORMAL) CBC with auto differential (11/04/2023 [...] Final R esult [facility] ([place]) 1 [facility] Department [place] [address] documented in this encounter Visit Diagnoses Diagnosis Current use of exterminator termite anticoagulation Essential hypertension Unspecified essential hypertension Pure hypercholesterolemia Paroxysmal atrial fibrillation (CMS/HCC) (HCC) Atrial fibrillation Bradycardia Other specified cardiac dysrhythmias Pulmonary hypertension (HCC) 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 Mixed hyperlipidemia Coronary artery disease involving [place] coronary artery of [place] heart without angina pectoris documented in this encounter Care Teams Shipper Receiver Relationship Specialty Start Date End Date Christine Herzog MD [address] [facility] [address] [place] [address] PCP - General Internal Medicine 12/02/21 Trey Pinedo MD [address] [facility] [address] [place] [address] Consulting Physician Neurology 05/09/19 Albert Craft MD [address] [facility] [address] [place] [address] Consulting Physician Gastroenterology 03/11/22 Chintan Figueroa MD [address] [place] [address] [address] Consulting Physician Hematology and Oncology 03/11/22 Jameel Bloom DPM [address] [place] [address] Consulting Physician Orthotics 03/11/22 Gadiel Genao MD [address] [place] [address] Surgeon Vascular Surgery 03/11/22 documented as of this encounter
--- OUTSIDE RECORDS SUMMARY | 2024-06-18 19:09 | XMS_ITS | Encounter Summary ---
Author Organization [facility] Healthcare Address [address] [place] [address] Care Team Providers Care Kindergarten Prep Teacher Name Role Phone Trey Pinedo MD Unavailable [phone] Christine Herzog MD Primary Care Provide r Albert Craft MD Unavailable [phone] Chintan Figueroa MD Unavailable [phone] Jameel Bloom DPM Unavailable [phone] Gadiel Genao MD Unavailable [phone] Encounter Details Date Type Department Care Team (Late st Contact Info) Description 01/26/2023 12:30 PM CDT [address] [address] Benign prostatic hyperplasia with lower urinary tract symptoms, symptom details unspecified; Healthcare maintenance; Type 2 diabetes mellitus without complication, unspecified whether fpc insulin use (HCC) Social History Tobacco Use [...] on file Legal Sex Male 6:00 PM PEDORTHIST Gender Identity Not on file Sexual Orientation Straight 01/23/2021 10 :16 PM CDT documented as of this encounter Plan of Treatment Not on file documented as of this encounter Goals Goal Patient Goal Type Associated Problems Recent Progress Patient-Stated? Author GULSHAN General Goal - Patient schedules and keeps appointments with all recommended providers ACO Care Management On track(2022 11:14 AM PEDORTHIST) Sepideh Guo, SUE Note: Problem: Potential for [...] 2 diabetes mellitus without complication, unspecified whether fpc insulin use (HCC) LIPID PANEL Routine 01/26/2023 [...] ORDERABLES Final Result [facility] ([place]) 1 [facility] Department [place] [address] * (ABNORMAL) Differential, auto (01/26/2023 12:39 PM CDT) Neutrophil abs 4.9 1.7 - 6.5 K/cumm [facility] ([place]) Imm gran abs 0.0 0.0 - 0.1 K/cumm [facility] ([place]) Lymphocyte abs 1.5 0.8 - 3.3 K/cumm [facility] ([place]) Monocyte abs 1.0(H) 0.2 - 0.8 K/cumm [...] BLOOD ORDERABLES Final Result Performing Organization Address [facility] Co de Phone Number [facility] ([place]) 1 [facility] [place] [address] * (ABNORMAL) Hemoglobin A1c (01/26/2023 12:39 PM [...] children were not included. ?? (Diabetes Care 31:[id number], 2008). ??The eAG is not equivalent to a fasting glucose. Blood 01/26/2023 12:3 9 PM CDT 01/26/2023 1:57 PM CDT Narrative [facility] ([place]) - 01/26/2023 2:26 PM CDT fasting Christine Herzog MD LAB BLOOD ORDERABLES Final Result Performing Organization Address [facility] Co de Phone Number [facility] ([place]) 1 [facility] [place] [address] * (ABNORMAL) Lipid panel (01/26/2023 12:39 PM CDT) [facility] Signature Cholesterol 136 30 - 199 [...] ORDERABLES Final Result [facility] ([place]) 1 [facility] Department [place] [address] * (ABNORMAL) CBC with auto differential (01/26/2023 [...] ORDERABLES Final Result [facility] ([place]) 1 [facility] Department [place] [address] * (ABNORMAL) Comprehensive metabolic panel (01/26/2023 12:39 [...] Final Result [facility] ([place]) 1 [facility] Department [place] [address] * PSA screen (01/26/2023 12:39 PM CDT) [...] ORDERABLES Final Result [facility] ([place]) [address] [place] [address] * (ABNORMAL) Albumin Creatinine Ratio, Urine (01/26/2023 12:38 PM CDT) Albumin Ur 268.5 mg/L [facility] ([place]) Comment: Interpretive Data No reference range established. Current interpretive data was last revised 2018. Testing performed by: [facility], [address] [place] [address]., [address] Creatinine Ur 157.6 mg/dL [facility] ([place]) Comment: Interpretive Data No reference range established. Current interpretive data was last revised 2018. Testing performed by: [facility], [address] [place] [address]., [address] Albumin Creatinine Ratio, Ur 170(H) 1 - 29 mg/g [facility] ([place]) Comment:Testing performed by : [facility], [address] [place] [address]., [address] Urine 01/26/2023 12:3 8 PM CDT 01/27/2023 9:10 AM CDT Narrative [facility] ([place]) - 01/27/2023 12:57 PM CDT fasting Christine Herzog MD LAB URINE ORDERABLES Final Result Performing Organization Address City/[facility]/ZIP Co de Phone Number [facility] ([place]) 1 [facility] [place] [address] documented in this encounter Visit Diagnoses Diagnosis Benign prostatic hyperplasia with lower urinary tract symptoms, symptom details unspecified Healthcare maintenance Type 2 diabetes mellitus without complication, unspecified whether intermodal customer service insulin use (HCC) documented in this encounter Care Teams Kindergarten Prep Teacher Relationship Specialty Start Date End Date Christine Herzog MD [address] [place] [address] [address] [place] [address] PCP - General Internal Medicine 12/02/21 Trey Pinedo MD [address] [place] [address] [address] [place] [address] Consulting Physician Neurology 05/09/19 Albert Craft MD [address] [facility] [address] [place] [address] Consulting Physician Gastroenterology 03/11/22 hCintan Figueroa MD [address] [facility] [address] [place] [address] Consulting Physician Hematology and Oncology 03/11/22 Jameel Bloom DPM [address] [place] [address] Consulting Physician Orthotics 03/11/22 Gadiel Genao MD [address] [place] [address] Surgeon Vascular Surgery 03/11/22 documented as of this encounter
--- OUTSIDE RECORDS SUMMARY | 2024-06-18 19:09 | XMS_ITS | Encounter Summary ---
Author Organization [facility] Address [address] [place] [address] Phone Care Team Providers Care Nut Packer Name Role Phone Trey Pinedo MD Unavailable [phone] Christine Herzog MD Primary Care Provide r Albert Craft MD Unavailable [phone] Chintan Figueroa MD Unavailable [phone] Jameel Bloom DPM Unavailable [phone] Gadiel Genao MD Unavailable Encounter Details Date Type Department Care Team (Late st Contact Info) Description 11/18/2022 Orders Only [facility] Oncology [address] [place] [address] [address] [place] [phone] Areli Hidalgo, SUE Polycythemia (Primary Dx) Social [...] file Legal Sex Male 6: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 Author GULSHAN General Goal - Patient schedules and keeps appointments with all recommended providers ACO Care Management On track(2022 11:14 AM MEDICAL IMAGING SPECIALIST) No Sepideh Hi, SUE Note: Problem: Potential [...] 05/22/2023 documented in this encounter Care Teams Nut Packer Relationship Specialty Start Date End Date Christine Herzog MD [address] [facility] [place] [address] PCP - General Internal Medicine 12/02/21 Trey Pinedo MD [address] [place] [address] [address] [place] [address] Consulting Physician Neurology 05/09/19 Albert Craft MD [address] [facility] [place] [address] Consulting Physician Gastroenterology 03/11/22 Chintan Figueroa MD [address] [facility] [place] [address] Consulting Physician Hematology and Oncology 03/11/22 Jameel Bloom DPM [address] [place] [address] Consulting Physician Orthotics 03/11/22 Gadiel Genao MD [address] [place] [address] Surgeon Vascular Surgery 03/11/22 documented as of this encounter
--- OUTSIDE RECORDS SUMMARY | 2024-06-18 19:09 | XMS_ITS | Encounter Summary ---
Author Organization [facility] Address [address] [facility] [address] [place] [address] Care Team Providers Care Gut Cleaner Name Role Phone Trey Pinedo MD Unavailable [phone] Christine Herzog MD Primary Care Provide r Albert Craft MD Unavailable [phone] Chintan Figueroa MD Unavailable [phone] Jameel Bloom DPM Unavailable [phone] Gadiel Genao MD Unavailable [phone] Reason for Visit * Reason Comments Medicare Wellness Encounter Details Date Type Department Care Team (Late st Contact Info) Description 03/23/2023 3:00 PM CDT Office Visit [facility] Primary Care at [address] [place] [phone] Christine Herzog MD [address] [place] [address] [address] [place] [address] Bilateral carotid artery stenosis (Primary Dx); Coronary artery disease involving [place] coronary artery of [place] heart without angina pectoris; Essential hypertension; Mixed [...] often do you attend chur ch or denominational services? 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 Gender Identity Not on file Sexual [...] MD - 03/23/2023 3:00 PM CDT My outside medical sales representative and I are thankful you have trusted [...] a living will or durable power of guide dog trainer?: Yes Would you like information regarding Advanced Directive (Living Will) and/or Durable Power of Bilingual Medical Assistant?: No Do you have to strain or [...] Polycythemia Bladder stones Coronary artery disease involving [place] coronary artery of [place] heart without angina pectoris Chronic GERD History [...] hand, right, complicated Hematoma Current use of fci anticoagulation PVC (premature ventricular contraction) Class 1 [...] as Surgeon (Vascular Surgery) Primary Pharmacy/DME suppliers: [id number] - [place] - [address] [place] [address] [place] [address] [facility]) - [place] [address] [place] [address] [facility] 100 [facility] [address] [facility] - [facility] [address] [facility] [address] [facility] [address] [id number] - [place], [place] - [address] [facility] [address] [facility] [address] Roger [facility] [place] [facility] [address] [facility] [address] [place] [address] Detection of Cognitive Impairment: The patient does [...] Improve Diet Advanced Directive Durable Power of Bilingual Medical Assistant: Yes Living Will: Yes Assessment and Plan: Diagnoses and all orders for this visit: Bilateral carotid artery stenosis (Primary) Assessment & Plan: Stable Released from vascular surgery Coronary artery disease involving [place] coronary artery of [place] heart without angina pectoris Assessment & Plan: [...] Continue atorvastatin 40mg daily Paroxysmal atrial fibrillation ([facility]) ([facility]) Assessment & Plan: Stable / clinically quiescent. Will continue to monitor. Continue following with cardiology Continue eliquis and finasteride managed by cardiology Pulmonary hypertension ([facility]) Assessment & Plan: Stable / clinically quiescent. Will continue to monitor. Managed by cardiology Type 2 diabetes mellitus with hyperlipidemia ([facility]) Assessment & Plan: The patient [...] CDT Associated Problem(s): Coronary artery disease involving [place] coronary artery of [place] heart without angina pectoris Stable / clinically [...] ACO Care Management On track(2022 11:14 AM SENIOR SEARCH MARKETING ANALYST) Sepideh Guo, RN Note: Problem: Potential for [...] children were not included. ?? (Diabetes Care 31:2842-0627, 2008). ??The eAG is not equivalent to a fasting glucose. Blood 12/14/2023 9:36 AM CDT 12/14/2023 10:33 AM CDT Narrative [facility] ([facility]) - 12/14/2023 11:02 AM CDT fasting Christine Herzog MD LAB BLOOD ORDERABLES Final Result [facility] ([place]) [address] Department [place] [address] documented in this encounter Visit Diagnoses Diagnosis Bilateral carotid artery stenosis- Primary Occlusion and stenosis of carotid artery without mention of cerebral infarction Coronary artery disease involving [place] coronary artery of [place] heart without angina pectoris Essential hypertension Unspecified [...] (HCC) Type 2 diabetes mellitus with hyperlipidemia ([facility]) documented in this encounter Care Teams Gut Cleaner Relationship Specialty Start Date End Date Christine Herzog MD [address] [facility] [address] [place] [address] PCP - General Internal Medicine 12/02/21 Trey Pinedo MD [address] [place] [address] [address] [place] [address] Consulting Physician Neurology 05/09/19 Albert Craft MD [address] [facility] [facility] [address] [place] [address] Consulting Physician Gastroenterology 03/11/22 Chintan Figueroa MD [address] [facility] [facility] [address] [place] [address] Consulting Physician Hematology and Oncology 03/11/22 Jameel Bloom DPM [address] [place] [address] Consulting Physician Orthotics 03/11/22 Gadiel Genao MD [address] [place] [address] Surgeon Vascular Surgery 03/11/22 documented as of this encounter
--- OUTSIDE RECORDS SUMMARY | 2024-06-18 19:09 | XMS_ITS | Encounter Summary ---
Author Organization [facility] Address [address] [address] Care Team Providers Care Electorate Officer Name Role Phone Trey Pinedo MD Unavailable [phone] Christine Herzog MD Primary Care Provide r Albert Craft MD Unavailable [phone] Chintan Figueroa MD Unavailable [phone] Jameel Bloom DPM Unavailable [phone] Gadiel Genao MD Unavailable [phone] Reason for Visit * Reason Comments Atrial Fibrillation Hyperlipidemia Hypertension Bradycardia Encounter Details Date Type Department Care Team (Late st Contact Info) Description 02/09/2023 11:45 AM CDT Office Visit [facility] Cardiology [address] [place] [address] Bijal Galindo MD [address] [place] [address] 3 [place] [address] Coronary artery disease involving [place] coronary artery of [place] heart without angina pectoris (Primary Dx); Essential hypertension; Paroxysmal atrial fibrillation (CMS/HCC) (HCC); Pulmonary hypertension (HCC); Pure hypercholesterolemia; Current use of custodial anticoagulation; PVC (premature ventricular contraction) Social History [...] file Legal Sex Male 6:00 PM RADIO PRESENTER Gender Identity Not on file Sexual Orientation [...] for this visit: Coronary artery disease involving [place] coronary artery of [place] heart without angina pectoris (I25.10) (Primary) - ECG 12 lead Essential hypertension (I10) - Comprehensive metabolic panel; Future - ECG 12 lead Paroxysmal atrial fibrillation (CMS/HCC) (HCC) (I48.0) - ECG 12 lead Pulmonary hypertension (HCC) (I27.20) - ECG 12 lead Pure hypercholesterolemia (E78.00) - Lipid panel; Future - ECG 12 lead Current use of custodial anticoagulation (Z79.01) - CBC with auto differential; [...] no significant delta, no evidence of ACS Nnia-bf-nnczduxe left atrial enlargement and mild dilated right [...] Care Management On track(2022 11:14 AM RADIO PRESENTER) Sepideh Guo, RN Note: Problem: Potential for [...] 12-LEAD Routine 02/09/2023 Coronary artery disease involving [place] coronary artery of [place] heart without angina pectoris Essential hypertension Paroxysmal atrial fibrillation (CMS/HCC) (HCC) Pulmonary hypertension (HCC) Pure hypercholesterolemia Current use of custodial anticoagulation documented in this encounter Results * [...] ([facility]) RBC 5.63 4.30 - 5.80 M/cumm [facility] ([facility]) MCV 76.9(L) 81.3 - 96.4 fL [facility] ([facility]) MCH 22.9(L) 27.1 - 33.3 pg [facility] ([place]) MCHC 29.8(L) 32.3 - 35.7 g/dL [facility] ([facility]) RDW CV 17.1(H) 11.1 - 14.9 % [facility] ([facility]) RDW SD 46.0 35.7 - 48.1 fL [facility] ([facility]) NRBC abs 0.00 0.00 - 0.01 K/cumm [facility] ([facility]) Blood 11/04/2023 11:1 2 AM CDT 11/04/2023 11:37 AM CDT us Bijal Galindo MD LAB BLOOD ORDERABLES Final R esult [facility] ([place]) [address] [facility] Department [place] [address] * (ABNORMAL) Comprehensive metabolic panel (11/04/2023 11:12 AM CDT) Sodium 141 135 - 145 mmol/L Potassium, pl 4.6 3.3 - 4.9 mmol/L [facility] ([place]) Chloride 105 97 - 110 mmol/L [facility] ([place]) CO2 26 22 - 32 mmol/L [facility] ([place]) Anion gap 9 2 - 15 mmol/L [facility] ([place]) BUN 25 6 - 25 mg/dL [facility] ([place]) Creatinine 1.43(H) 0.80 - 1.30 mg/dL [facility] ([place]) Glucose 117 70 - 199 mg/dL [facility] ([place]) Comment: Interpretive Data [...] MD LAB BLOOD ORDERABLES Final R esult [facility] ([facility]) [address] [facility] Department of Laboratories [place], [place] [id number] * (ABNORMAL) Lipid panel (11/04/2023 11:12 AM [...] Final R esult [facility] ([facility]) [address] [facility] Department [place] [address] * ECG 12 lead (02/09/2023) us Bijal Galindo MD ECG ORDERABLES Edited Resul t - Final documented in this encounter Visit Diagnoses Diagnosis Coronary artery disease involving [place] coronary artery of [place] heart without angina pectoris- Primary Essential hypertension Unspecified essential hypertension Paroxysmal atrial fibrillation (CMS/HCC) (HCC) Atrial fibrillation Pulmonary hypertension (HCC) Other chronic pulmonary heart diseases Pure hypercholesterolemia Current use of exterminator helper termite anticoagulation PVC (premature ventricular contraction) Other premature beats documented in this encounter Care Teams Electorate Officer Relationship Specialty Start Date End Date Christine Herzog MD [address] [facility] [address] [place] [address] PCP - General Internal Medicine 12/02/21 Trey Pinedo MD [address] [facility] [address] [place] [address] Consulting Physician Neurology 05/09/19 Albert Craft MD [address] [facility] [address] [place] [address] Consulting Physician Gastroenterology 03/11/22 Chintan Figueroa MD [address] [facility] [address] [place] [address] Consulting Physician Hematology and Oncology 03/11/22 Jameel Bloom DPM [address] [place] [address] Consulting Physician Orthotics 03/11/22 Gadiel Genao MD [address] [place] [address] Surgeon Vascular Surgery 03/11/22 documented as of this encounter
--- OUTSIDE RECORDS SUMMARY | 2024-06-18 19:09 | XMS_ITS | Encounter Summary ---
Author Organization [facility] Address [address] [place] [address] Phone Care Team Providers Care Mold Cleaning And Storage Supervisor Name Role Phone Trey Pinedo MD Unavailable Christine Herzog MD Primary Care Provide r Albert Craft MD Unavailable [phone] Chintan Figueroa MD Unavailable [phone] Jameel Bloom DPM Unavailable [phone] Gadiel Genao MD Unavailable Reason for Visit * Reason Comments Follow-up Polycythemia Encounter Details Date Type Department Care Team (Late st Contact Info) Description 11/18/2022 1:30 PM CDT Office Visit [facility] Oncology [address] [facility] Medical Office [address] [place] [address] Monika Castellano, FULL TIME STAFF INTERPRETER [address] [place] [address] [address] [place] [address] Polycythemia Social History Tobacco Use Types Packs/Day [...] How often do you attend chur or taoist services? 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 Patient reported he established care with gaming dealer, Dr. Hoskins who recommended regular phlebotomy to [...] Recent labs, radiology and pathology reviewed in [facility] ASSESSMENT: Secondary Erythrocytosis likely due to [...] physician. NIURKA Sidhu Nurse Practitioner Medical Oncology [facility] documented in this encounter Miscellaneous Notes [...] ACO Care Management On track(2022 11:14 AM CUSTOMER SALES CONSULTANT) Sepideh Guo RN Note: Problem: Potential [...] 11/18/2022 documented in this encounter Care Teams Mold Cleaning And Storage Supervisor Relationship Specialty Start Date End Date Christine Herzog MD [address] [place] [address] [address] [place] [address] PCP - General Internal Medicine 12/02/21 Trey Pinedo MD [address] [place] [address] [address] [place] [address] Consulting Physician Neurology 05/09/19 Albert Craft MD [address] [facility] [address] [place] [address] Consulting Physician Gastroenterology 03/11/22 Chintan Figueroa MD [address] [facility] [address] [place] [address] Consulting Physician Hematology and Oncology 03/11/22 Jameel Bloom DPM [address] [place] [address] Consulting Physician Orthotics 03/11/22 Gadiel Genao MD [address] [place] [address] Surgeon Vascular Surgery 03/11/22 documented as of this encounter
--- OUTSIDE RECORDS SUMMARY | 2024-06-18 19:09 | XMS_ITS | Encounter Summary ---
Author Organization [facility] Address [address] [facility] [address] [place] [address] Care Team Providers Care Petrographer Name Role Phone Trey Pinedo MD Unavailable [phone] Christine Herzog MD Primary Care Provide r Albert Craft MD Unavailable [phone] Chintan Figueroa MD Unavailable [phone] Jameel Bloom DPM Unavailable [phone] Gadiel Genao MD Unavailable [phone] Encounter Details Date Type Department Care Team (Late st Contact Info) Description 12/29/2022 Telephone [facility] Medical [facility] Primary Care at [place] [address] [facility] [address] [place] [address] Christine Herzog MD [address] [place] [address] [address] [place] [address] Social History Tobacco Use Types [...] place to sleep or slept in a mcfp (including now)? No 09/28/2022 Personal Safety Answer Date Recorded Have you ever been in or are you currently in a harmful physical or emotional relationship or is someone making you feel afraid or unsafe? 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 HIPAA verified JM 12/29/22 documented in this encounter Plan of Treatment Not on file documented as of this encounter Goals Goal Patient Goal Type Associated Problems Recent Progress Patient-Stated? Author GULSHAN General Goal - Patient schedules and keeps appointments with all recommended providers ACO Care Management On track(2022 11:14 AM DJ INSTRUCTOR) No Sepideh Hi RN Note: Problem: Potential [...] on filedocumented in this encounter Care Teams Petrographer Relationship Specialty Start Date End Date Christine Herzog MD [address] [facility] [address] [place] [address] PCP - General Internal Medicine 12/02/21 Trey Pinedo MD [address] [facility] [place] [address] Consulting Physician Neurology 05/09/19 Albert Craft MD [address] [facility] [address] [place] [address] Consulting Physician Gastroenterology 03/11/22 Chintan Figueroa MD [address] [facility] [address] [place] [address] Consulting Physician Hematology and Oncology 03/11/22 Jameel Bloom DPM [address] [place] [address] Consulting Physician Orthotics 03/11/22 Gadiel Genao MD [address] [place] [address] Surgeon Vascular Surgery 03/11/22 documented as of this encounter
--- OUTSIDE RECORDS SUMMARY | 2024-06-18 19:09 | XMS_ITS | Encounter Summary ---
Author Organization [facility] Address [address] [facility] [address] [place] [address] Care Team Providers Care Design Transferrer Name Role Phone Trey Pinedo MD Unavailable [phone] Christine Herzog MD Primary Care Provide r Albert Craft MD Unavailable [phone] Chintan Figueroa MD Unavailable [phone] Jameel Bloom DPM Unavailable [phone] Gadiel Genao MD Unavailable [phone] Encounter Details Date Type Department Care Team (Late st Contact Info) Description 03/24/2023 Orders Only [facility] Primary Care at [address] [place] [address] Christine Herzog MD [address] [place] [address] [address] [place] [address] Type 2 diabetes mellitus with [...] file Legal Sex Male 6: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 Author GULSHAN General Goal - Patient schedules and keeps appointments with all recommended providers ACO Care Management On track(2022 11:14 AM SENIOR SUSTAINABILITY CONSULTANT) No Sepideh Hi, SUE Note: Problem: Potential [...] was last revised 2018. Testing performed by: [facility], [address] [place] [address], [place]., [address] Creatinine Ur 247.3 mg/dL [facility] ([facility]) Comment: Interpretive Data No reference range established. Current interpretive data was last revised 2018. Testing performed by: [facility], [address] [place] [address]., [address] Albumin Creatinine Ratio, Ur 55(H) 1 - 29 mg/g [facility] ([facility]) Comment:Testing performed by : [facility], [address] [place] [address]., [address] Urine 12/14/2023 9:36 AM CDT 12/14/2023 1:31 PM CDT Narrative [facility] ([facility]) - 12/14/2023 2:34 PM CDT Non fasting Christine Herzog MD LAB URINE ORDERABLES Final Result [facility] ([place]) 1 [facility] Department [place] [address] * (ABNORMAL) Comprehensive metabolic panel (12/14/2023 9:36 AM CDT) Sodium 143 135 - 145 mmol/L Potassium, pl 4.5 3.3 - 4.9 mmol/L [facility] ([facility]) Chloride 107 97 - 110 mmol/L [facility] ([facility]) CO2 24 22 - 32 mmol/L [facility] ([facility]) Anion gap 12 2 - 15 mmol/L [facility] ([facility]) BUN 25 6 - 25 mg/dL [facility] ([facility]) Creatinine 1.44(H) 0.80 - 1.30 mg/dL [facility] ([facility]) Glucose 106 70 - 199 mg/dL [facility] ([facility]) Comment: Interpretive Data Fasting glucose [...] Result [facility] ([facility]) 1 [facility] Department [place] [address] documented in this encounter Visit Diagnoses Diagnosis Type 2 diabetes mellitus with hyperlipidemia (HCC)- Primary Type 2 diabetes mellitus with hyperlipidemia (HCC) documented in this encounter Care Teams Design Transferrer Relationship Specialty Start Date End Date Christine Herzog MD [address] [facility] [address] [place] [address] PCP - General Internal Medicine 12/02/21 Trey Pinedo MD [address] [facility] [address] [place] [address] Consulting Physician Neurology 05/09/19 Albert Craft MD [address] [facility] [address] [place] [address] Consulting Physician Gastroenterology 03/11/22 Chintan Figueroa MD [address] [place] [address] [address] Consulting Physician Hematology and Oncology 03/11/22 Jameel Bloom DPM [address] [place] [address] Consulting Physician Orthotics 03/11/22 Gadiel Genao MD [address] [place] [address] Surgeon Vascular Surgery 03/11/22 documented as of this encounter
--- OUTSIDE RECORDS SUMMARY | 2024-06-18 19:09 | XMS_ITS | Encounter Summary ---
Author Organization [facility] Healthcare Address [address] [place] [address] Care Team Providers Care Licensed Embalmer Supervisor Name Role Phone Trey Pinedo MD Unavailable [phone] Christine Herzog MD Primary Care Provide r Albert Craft MD Unavailable [phone] Chintan Figueroa MD Unavailable [phone] Jameel Bloom DPM Unavailable [phone] Gadiel Genao MD Unavailable [phone] Reason for Visit * Reason Comments Phlebotomy Encounter Details Date Type Department Care Team (Late st Contact Info) Description 09/21/2023 3:00 PM CDT [facility] [address] [place] [phone] Polycythemia (Primary Dx) Social History Tobacco Use [...] on file 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 Gender Identity Not on file Sexual Orientation [...] ACO Care Management On track(2022 11:14 AM SUPERINTENDENT DRILLING AND PRODUCTION) No Sepideh Hi, RN Note: Problem: Potential [...] 09/21/2023 documented in this encounter Care Teams Licensed Embalmer Supervisor Relationship Specialty Start Date End Date Christine Herzog MD [address] [facility] [address] [place] [address] PCP - General Internal Medicine 12/02/21 Trey Pinedo MD [address] [place] [address] [address] [place] [address] Consulting Physician Neurology 05/09/19 Albert Craft MD [address] [facility] [place] [address] Consulting Physician Gastroenterology 03/11/22 Chintan Figueroa MD [address] [facility] [address] [place] [address] Consulting Physician Hematology and Oncology 03/11/22 Jameel Bloom DPM [address] [place] [address] Consulting Physician Orthotics 03/11/22 Gadiel Genao MD [address] [place] [address] Surgeon Vascular Surgery 03/11/22 documented as of this encounter
--- OUTSIDE RECORDS SUMMARY | 2024-06-18 19:09 | XMS_ITS | Encounter Summary ---
Author Organization [facility] Healthcare Address [address] [place] [address] Care Team Providers Care Administrative Coordinator Name Role Phone Trey Pinedo MD Unavailable [phone] Christine Herzog MD Primary Care Provide r Albert Craft MD Unavailable [phone] Chintan Figueroa MD Unavailable [phone] Jameel Bloom DPM Unavailable [phone] Gadiel Genao MD Unavailable [phone] Encounter Details Date Type Department Care Team (Late st Contact Info) Description 09/21/2023 2:45 PM CDT Lab [address] [address] Polycythemia Social History Tobacco Use Types Packs/Day [...] place to sleep or slept in a group home (including now)? No 09/28/2022 Personal Safety Answer Date Recorded Have you ever been in or are you currently in a harmful physical or emotional relationship or is someone making you feel afraid or unsafe? Denies 09/25/2022 Sex and Gender Information Value Date Recorded Sex Assigned at Not on file Legal Sex Male 6:00 PM SAP ARCHITECT Gender Identity Not on file Sexual Orientation [...] ACO Care Management On track(2022 11:14 AM SAP ARCHITECT) Sepideh Guo RN Note: Problem: Potential for [...] was last reviewed 2021. Testing performed by: [facility], [facility], [place], [address] Blood 09/21/2023 3:05 PM CDT 09/21/2023 4:00 PM CDT Monika Castellano GIFT SHOP CLERK LAB BLOOD ORDERABLES Final Result [facility] ([place]) 1 [facility] Department [place] [address] * Differential, auto (09/21/2023 3:05 PM CDT) Neutrophil abs 4.6 1.5 - 6.5 K/cumm Comment:Testing performed by : [facility] [address], Medical Office [facility] [address], [place] [address] Imm gran abs 0.0 0.0 - 0.1 K/cumm [facility] ([place]) Comment:Testing performed by : [facility] [address], Medical Office [facility] [address], [place] [address] Lymphocyte abs 1.5 0.8 - 3.3 K/cumm [facility] ([place]) Comment:Testing performed by : [facility] [address], Medical Office [facility], [place] [address] Monocyte abs 0.7 0.2 - 0.8 K/cumm [facility] ([place]) Comment:Testing performed by : [facility] [address], Medical Office [facility] [address], [place] [address] Eosinophil abs 0.2 0.0 - 0.5 K/cumm [facility] ([place]) Comment:Testing performed by : [facility] [address], Medical Office [facility] [address], [place] [address] Basophil abs 0.1 0.0 - 0.1 K/cumm [facility] ([place]) Comment:Testing performed by : [facility] [address], Medical Office [facility], [place] [address] Neutrophil pct 64.6 % [facility] ([place]) Comment: Interpretive Data Percent cell count reference ranges are not reported, since discordance with absolute values may lead to misinterpretation of CBC data. Current Interpretive Data was last revised on 2022. Testing performed by: [facility] [address], Medical Office [facility] [address], [place] [address] Imm gran pct 0.1 % [facility] ([place]) Comment: Interpretive Data Percent cell count reference ranges are not reported, since discordance with absolute values may lead to misinterpretation of CBC data. Current Interpretive Data was last revised on 2022. Testing performed by: [facility] [address], Medical Office [address], [place] [address] Lymphocyte pct 20.6 % [facility] ([place]) Comment: Interpretive Data Percent cell count reference ranges are not reported, since discordance with absolute values may lead to misinterpretation of CBC data. Current Interpretive Data was last revised on 2022. Testing performed by: [facility] [address], Medical Office [address], [place] [address] Monocyte pct 10.4 % [facility] ([place]) Comment: Interpretive Data Percent cell count reference ranges are not reported, since discordance with absolute values may lead to misinterpretation of CBC data. Current Interpretive Data was last revised on 2022. Testing performed by: [facility] [address], Medical Office [address], [place] [address] Eosinophil pct 2.9 % [facility] ([place]) Comment: Interpretive Data Percent cell count reference ranges are not reported, since discordance with absolute values may lead to misinterpretation of CBC data. Current Interpretive Data was last revised on 2022. Testing performed by: [facility] [address], Medical Office [address], [place] [address] Basophil pct 1.4 % [facility] ([place]) Comment: Interpretive Data Percent cell count reference ranges are not reported, since discordance with absolute values may lead to misinterpretation of CBC data. Current Interpretive Data was last revised on 2022. Testing performed by: [facility] [address], Medical Office [address], [place] [address] Blood 09/21/2023 3:05 PM CDT 09/21/2023 3:08 PM CDT us Monika Castellano GIFT SHOP CLERK LAB BLOOD ORDERABLES Final Result [facility] ([place]) 1 [facility] Department [place] [address] * (ABNORMAL) Comprehensive metabolic panel (09/21/2023 3:05 PM CDT) Sodium 141 135 - 145 mmol/L Comment:Testing performed by : [facility], [facility], [place], [address] Potassium, pl 4.2 3.3 - 4.9 mmol/L [facility] ([place]) Comment:Testing performed by : [facility], [facility], [place], [address] Chloride 104 97 - 110 mmol/L [facility] ([place]) Comment:Testing performed by : [facility], [place], [address] CO2 27 22 - 32 mmol/L [facility] ([place]) Comment:Testing performed by : [facility], [place], [address] Anion gap 11 2 - 15 mmol/L [facility] ([place] Comment:Testing performed by : [facility], [place], [address] BUN 28(H) 6 - 25 mg/dL [facility] ([place]) Comment:Testing performed by : [facility], [place], [address] Creatinine 1.34(H) 0.80 - 1.30 mg/dL [facility] ([place]) Comment:Testing performed by : [facility], [place], [address] Glucose 110 70 - 199 mg/dL [facility] ([place] Comment: Interpretive Data Fasting glucose >/= 126 [...] last revised 2022. Testing performed by: [facility], [place], [address] Calcium 9.3 8.5 - 10.3 mg/dL [facility] ([place]) Comment:Testing performed by : [facility], [facility], [place], [address] Bilirubin, total 0.4 0.1 - 1.2 mg/dL [facility] ([place]) Comment:Testing performed by : [facility], [facility], [place], [address] Protein, pl 6.9 6.5 - 8.5 g/dL [facility] ([place]) Comment:Testing performed by : [facility], [facility], [place], [address] Albumin 4.2 3.5 - 5.0 g/dL [facility] ([place]) Comment:Testing performed by : [place], [address] Alk phos 93 40 - 130 Units/L [facility] ([place]) Comment:Testing performed by : [facility], [place], [address] ALT 15 7 - 55 Units/L [facility] ([place]) Comment:Testing performed by : [facility], [facility], [place], [address] AST 16 10 - 50 Units/L [facility] ([place]) Comment:Testing performed by : [facility], [place], [address] Blood 09/21/2023 3:05 PM CDT 09/21/2023 4:00 PM CDT us Monika Castellano GIFT SHOP CLERK LAB BLOOD ORDERABLES Final Result [facility] ([place]) 1 [facility] Department [place] [address] * (ABNORMAL) CBC with auto differential (09/21/2023 3:05 PM CDT) WBC 7.1 3.8 - 9.9 K/cumm Comment:Testing performed by : [facility] [place], [address], Medical Office [address], [place] [address] Hgb 14.1 13.0 - 17.5 g/dL [facility] ([place]) Comment:Testing performed by : [facility] [address], Medical Office [facility] [address], [place] [address] Hct 46.8 38.9 - 50.3 % [facility] ([place]) Comment:Testing performed by : [facility] [address], Medical Office [address], [place] [address] Plt 211 150 - 400 K/cumm [facility] ([place]) Comment:Testing performed by : [facility] [address], Medical Office [facility] [address], [place] [address] MPV 10.0 9.1 - 12.3 fL [facility] ([place]) Comment:Testing performed by : [facility] [address], Medical Office [facility] [address], [place] [address] RBC 6.02(H) 4.30 - 5.80 M/cumm [facility] ([place]) Comment:Testing performed by : [facility] [address], Medical Office [facility] [address], [place] [address] MCV 77.7(L) 81.3 - 96.4 fL [facility] ([place]) Comment:Testing performed by : [facility] [address], Medical Office [facility] [address], [place] [address] MCH 23.4(L) 27.1 - 33.3 pg [facility] ([place]) Comment:Testing performed by : [facility] [address], Medical Office [facility] [address], [place] [address] MCHC 30.1(L) 32.3 - 35.7 g/dL [facility] ([place]) Comment:Testing performed by : [facility] [address], Medical Office [facility] [address], [place] [address] RDW CV 16.7(H) 11.1 - 14.9 % [facility] ([place]) Comment:Testing performed by : [facility] [address], Medical Office [address], [place] [address] RDW SD 45.2 35.7 - 48.1 fL [facility] ([place]) Comment:Testing performed by : [facility] [address], Medical Office [address], [place] [address] NRBC abs Not Measured 0.00 - 0.01 K/cumm [facility] ([place]) Comment:Testing performed by : [facility] [place], [address] [facility] , Medical Office [address], [place] [address] Blood 09/21/2023 3:05 PM CDT 09/21/2023 3:08 PM CDT Monika Castellano GIFT SHOP CLERK LAB BLOOD ORDERABLES Final Result [facility] ([place]) 1 [facility] Department [place] [address] documented in this encounter Visit Diagnoses Diagnosis Polycythemia Polycythemia, secondary documented in this encounter Care Teams Administrative Coordinator Relationship Specialty Start Date End Date Christine Herzog MD [address] [facility] [address] [place] [address] PCP - General Internal Medicine 12/02/21 Trey Pinedo MD [address] [facility] [address] [place] [address] Consulting Physician Neurology 05/09/19 Albert Craft MD [address] [facility] [address] [place] [address] Consulting Physician Gastroenterology 03/11/22 Chintan Figueroa MD [address] [facility] [address] [place] [address] Consulting Physician Hematology and Oncology 03/11/22 Jameel Bloom DPM [address] [facility] [place] [address] Consulting Physician Orthotics 03/11/22 Gadiel Genao MD [address] [place] [address] Surgeon Vascular Surgery 03/11/22 documented as of this encounter
--- OUTSIDE RECORDS SUMMARY | 2024-06-18 19:09 | XMS_ITS | Encounter Summary ---
Author Organization [facility] Address [address] [facility] [address] [place] [address] Care Team Providers Care Terminal Operator Name Role Phone Trey Pinedo MD Unavailable [phone] Christine Herzog MD Primary Care Provide r Albert Craft MD Unavailable [phone] Chintan Figueroa MD Unavailable [phone] Jameel Bloom DPM Unavailable [phone] Gadiel Genao MD Unavailable [phone] Encounter Details Date Type Department Care Team (Late st Contact Info) Description 01/27/2023 Telephone [facility] Medical [facility] [place] [address] [facility] [address] [place] [address] Christine Herzog MD [address] [place] [address] [address] [place] [address] Social History Tobacco Use Types [...] often do you attend chur ch or pentecostalism services? 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 ?? (Diabetes Care 31:5626-9148, 2008). ??The eAG is not equivalent to a fasting glucose. Blood 03/23/2023 10:4 3 AM CDT 03/23/2023 10:51 AM CDT Narrative [facility]ROEDER) - 03/23/2023 11:47 AM CDT Fasting . Patient will have done 1-2 weeks prior to apt on 03-23-23 us Christine Herzog MD LAB BLOOD ORDERABLES Final Result [facility]) 1 [facility] Department [place] [address] * Lipid panel (03/23/2023 10:43 AM CDT) [facility] Cholesterol 141 30 - 199 mg/dL URVASHIMALINDA [...] ORDERABLES Final Result [facility] ([place]) 1 [facility] Department [place] [address] * (ABNORMAL) Comprehensive metabolic panel (03/23/2023 10:43 [...] ORDERABLES Final Result [facility] ([place]) 1 [facility] Department [place] [address] * (ABNORMAL) CBC with auto [...] ORDERABLES Final Result [facility] CAR[facility]HA[facility] ([place]) 1 [facility] [place] [address] documented in this encounter Visit Diagnoses Diagnosis Healthcare maintenance- Primary Hyperkalemia Hyperpotassemia Acute kidney injury (HCC) Healthcare maintenance documented in this encounter Care Teams Terminal Operator Relationship Specialty Start Date End Date Christine Herzog MD [address] [facility] [place] [address] PCP - General Internal Medicine 12/02/21 Trey Pinedo MD [address] [place] [address] [address] [place] [address] Consulting Physician Neurology 05/09/19 Albert Craft MD [address] [facility] [place] [address] Consulting Physician Gastroenterology 03/11/22 Chintan Figueroa MD [address] [facility] [place] [address] Consulting Physician Hematology and Oncology 03/11/22 Jameel Bloom DPM [address] [place] [address] Consulting Physician Orthotics 03/11/22 Gadiel Genao MD [address] [place] [address] Surgeon Vascular Surgery 03/11/22 documented as of this encounter
--- OUTSIDE RECORDS SUMMARY | 2024-06-18 19:09 | XMS_ITS | Encounter Summary ---
Author Organization [facility] Address [address] [address] Care Team Providers Care Warehouse Shift Supervisor Name Role Phone Trey Pinedo MD Unavailable [phone] Christine Herzog MD Primary Care Provide r Albert Craft MD Unavailable [phone] Chintan Figueroa MD Unavailable [phone] Jameel Bloom DPM Unavailable [phone] Gadiel Genao MD Unavailable [phone] Reason for Visit * Reason Onset Date Comments Med Refill 12/28/2022 Encounter Details Date Type Department Care Team (Late st Contact Info) Description 12/28/2022 Telephone [facility] Cardiology [address] [facility] [address] [place] [address] Bijal Galindo MD [address] [place] [address] 3 [place] [address] Med Refill Social History Tobacco [...] you attend chur ch or pentecostal services? 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 * Telephone Encounter - Tiffanie Landaverde - 01/05/2023 10:42 AM CDT Pt son called and said that [facility] wont refill the magnesium, so can you please send a 90 day supply to [email or web address] [place], [place] * Telephone Encounter - Liudmila Portillo LPN - 12/28/2022 2:27 PM CDT Refill sent to [facility]. * Telephone Encounter - Tiffanie Landaverde - 12/28/2022 1:58 PM CDT Pt needs [...] ACO Care Management On track(2022 11:14 AM DISPATCHER AUTOMOBILE RENTAL) Sepideh Guo RN Note: Problem: Potential for [...] documented as of this encounter Care Teams Warehouse Shift Supervisor Relationship Specialty Start Date End Date Christine Herzog MD [address] [facility] [address] [place] [address] PCP - General Internal Medicine 12/02/21 Trey Pinedo MD [address] [place] [address] [address] [place] [address] Consulting Physician Neurology 05/09/19 Albert Craft MD [address] [facility] [address] [place] [address] Consulting Physician Gastroenterology 03/11/22 Chintan Figueroa MD [address] [facility] [address] [place] [address] Consulting Physician Hematology and Oncology 03/11/22 Jameel Bloom DPM [address] [place] [address] Consulting Physician Orthotics 03/11/22 Gadiel Genao MD [address] [place] [address] Surgeon Vascular Surgery 03/11/22 documented as of this encounter
--- OUTSIDE RECORDS SUMMARY | 2024-06-18 19:09 | XMS_ITS | Encounter Summary ---
Author Organization [facility] Healthcare Address [address] [place] [address] Care Team Providers Care Cook Camp Name Role Phone Trey Pinedo MD Unavailable [phone] Christine Herzog MD Primary Care Provide r Albert Craft MD Unavailable [phone] Chintan Figueroa MD Unavailable [phone] Jameel Bloom DPM Unavailable [phone] Gadiel Genao MD Unavailable [phone] Encounter Details Date Type Department Care Team (Late st Contact Info) Description 04/20/2023 1:30 PM CDT Lab [facility] [address] [facility] [address] [place] [address] Polycythemia Social History Tobacco Use Types Packs/Day [...] on file Legal Sex Male 6:00 PM TURKEY PICKER Gender Identity Not on file Sexual [...] ACO Care Management On track(2022 11:14 AM TURKEY PICKER) Sepideh Guo RN Note: Problem: Potential for [...] ([place]) 1 [facility] [place] [address] * (ABNORMAL) CBC with auto differential (04/20/2023 [...] 04/20/2023 1:21 PM CDT us Monika Castellano PAIN MEDICINE PHYSICIAN LAB BLOOD ORDERABLES Final Result [facility] ([place]) 1 [facility] [place] [address] documented in this encounter Visit Diagnoses Diagnosis Polycythemia Polycythemia, secondary documented in this encounter Orders Appointment Requests Count Last Ordered Date Fi rst Ordered Date ONCBCN LAB APPOINTMENT 1 04/20/2023 documented in this encounter Care Teams Cook Camp Relationship Specialty Start Date End Date Christine Herzog MD [address] [facility] [address] [place] [address] PCP - General Internal Medicine 12/02/21 Trey Pinedo MD [address] [facility] [address] [place] [address] Consulting Physician Neurology 05/09/19 Albert Craft MD [address] [facility] [address] [place] [address] Consulting Physician Gastroenterology 03/11/22 Chintan Figueroa MD [address] [place] [address] [address] Consulting Physician Hematology and Oncology 03/11/22 Jameel Bloom DPM [address] [place] [address] Consulting Physician Orthotics 03/11/22 Gadiel Genao MD [address] [place] [address] Surgeon Vascular Surgery 03/11/22 documented as of this encounter
--- OUTSIDE RECORDS SUMMARY | 2024-06-18 19:09 | XMS_ITS | Encounter Summary ---
Author Organization [facility] Healthcare Address [address] [place] [address] Care Team Providers Care Property Administrator Name Role Phone Trey Pinedo MD Unavailable [phone] Christine Herzog MD Primary Care Provide r Albert Craft MD Unavailable [phone] Chintan Figueroa MD Unavailable [phone] Jameel Bloom DPM Unavailable [phone] Gadiel Genao MD Unavailable [phone] Encounter Details Date Type Department Care Team (Late st Contact Info) Description 05/22/2023 10:15 AM DEHYDROGENATION SUPERVISOR Lab [facility] 4 [facility] [address] [place] [id number] Polycythemia Social History Tobacco Use Types Packs/Day [...] on file Legal Sex Male 6:00 PM DEHYDROGENATION SUPERVISOR Gender Identity Not on file Sexual Orientation Straight 01/23/2021 10 :16 PM CDT documented as of this encounter Plan of Treatment Not on file documented as of this encounter Goals Goal Patient Goal Type Associated Problems Recent Progress Patient-Stated? Author GULSHAN General Goal - Patient schedules and keeps appointments with all recommended providers ACO Care Management On track(2022 11:14 AM DEHYDROGENATION SUPERVISOR) Sepideh Guo RN Note: Problem: Potential for [...] Diagnosis Comments EGFR Routine 05/22/2023 10:40 AM DEHYDROGENATION SUPERVISOR Polycythemia DIFFERENTIAL AUTO Routine 05/22/2023 10: 40 AM DEHYDROGENATION SUPERVISOR Polycythemia CBC WITH AUTO DIFFERENTIAL Routine 05/22/2023 10:40 AM DEHYDROGENATION SUPERVISOR Polycythemia COMPREHENSIVE METABOLIC PANEL Routine 05/22/2023 10:40 AM DEHYDROGENATION SUPERVISOR Polycythemia documented in this encounter Results * eGFR (05/22/2023 10:40 AM DEHYDROGENATION SUPERVISOR) eGFR 57 mL/min/1. 73 m2 [facility] [...] reviewed 2021. Blood 05/22/2023 10:4 0 AM DEHYDROGENATION SUPERVISOR 05/22/2023 11:09 AM DEHYDROGENATION SUPERVISOR us Chintan Figueroa MD LAB BLOOD ORDERABLES Final Re sult [facility] ([place]) 1 [facility] Department of Laboratories [place], [place] [id number] * Differential, auto (05/22/2023 10:40 AM DEHYDROGENATION SUPERVISOR) Neutrophil abs 4.5 1.7 - 6.5 K/cumm [...] on 2022. Blood 05/22/2023 10:4 0 AM DEHYDROGENATION SUPERVISOR 05/22/2023 10:45 AM DEHYDROGENATION SUPERVISOR us Chintan Figueroa MD LAB BLOOD ORDERABLES Final Re sult [facility] ([place]) 1 [facility] [place] [address] * (ABNORMAL) CBC with auto differential (05/22/2023 10:40 AM DEHYDROGENATION SUPERVISOR) WBC 7.1 3.8 - 9.9 K/cumm [facility] [...] [facility] ([place]) Blood 05/22/2023 10:4 0 AM DEHYDROGENATION SUPERVISOR 05/22/2023 10:45 AM DEHYDROGENATION SUPERVISOR us Chintan Figueroa MD LAB BLOOD ORDERABLES Final Re sult [facility] ([place]) 1 [facility] [place] [address] * (ABNORMAL) Comprehensive metabolic panel (05/22/2023 10:40 AM DEHYDROGENATION SUPERVISOR) Sodium 140 135 - 145 mmol/L [facility] [...] [facility] ([place]) Blood 05/22/2023 10:4 0 AM DEHYDROGENATION SUPERVISOR 05/22/2023 11:09 AM DEHYDROGENATION SUPERVISOR Chintan Figueroa MD LAB BLOOD ORDERABLES Final Re sult [facility] ([place]) 1 [facility] [place] [address] documented in this encounter Visit Diagnoses Diagnosis Polycythemia Polycythemia, secondary documented in this encounter Orders Appointment Requests Count Last Ordered Date Fi rst Ordered Date ONCBCN LAB APPOINTMENT 1 05/22/2023 documented in this encounter Care Teams Property Administrator Relationship Specialty Start Date End Date Christine Herzog MD [address] [facility] [address] [place] [address] PCP - General Internal Medicine 12/02/21 Trey Pinedo MD [address] [place] [address] [address] [place] [address] Consulting Physician Neurology 05/09/19 Albert Craft MD [address] [place] [address] [address] [place] [address] Consulting Physician Gastroenterology 03/11/22 Chintan Figueroa MD [address] [place] [address] [address] [place] [address] Consulting Physician Hematology and Oncology 03/11/22 Jameel Bloom DPM [address] [place] [address] Consulting Physician Orthotics 03/11/22 [place] [address] [place] [address] Surgeon Vascular Surgery 03/11/22 documented as of this encounter
--- OUTSIDE RECORDS SUMMARY | 2024-06-18 19:09 | XMS_ITS | Encounter Summary ---
Author Organization [facility] Address [address] [facility] [address] [place] [address] Care Team Providers Care Tax Audit Manager Name Role Phone Trey Pinedo MD Unavailable [phone] Christine Herzog MD Primary Care Provide r Albert Craft MD Unavailable [phone] Chintan Figueroa MD Unavailable [phone] Jameel Bloom DPM Unavailable [phone] Gadiel Genao MD Unavailable [phone] Encounter Details Date Type Department Care Team (Late st Contact Info) Description 12/27/2022 Telephone [facility] Cardiology [address] [facility] [address] [place] [phone] Martina Ennis MA Social History Tobacco [...] r organizations such as anabaptist groups, unions, fraCombaGroup or athletic groups, or school groups? Patient [...] place to sleep or slept in a retirement (including now)? No 09/28/2022 Personal Safety Answer Date Recorded Have you ever been in or are you currently in a harmful physical or emotional relationship or is someone making you feel afraid or unsafe? Denies 09/25/2022 Sex and Gender Information Value Date Recorded Sex Assigned at Not on file Legal Sex Male 6:00 PM TIMBER CRUISER Gender Identity Not on file Sexual Orientation [...] ACO Care Management On track(2022 11:14 AM TIMBER CRUISER) Sepideh Guo, SUE Note: Problem: Potential for [...] documented as of this encounter Care Teams Tax Audit Manager Relationship Specialty Start Date End Date Christine Herzog MD [address] [facility] [address] [place] [address] PCP - General Internal Medicine 12/02/21 Trey Pinedo MD [address] [place] [address] [address] [place] [address] Consulting Physician Neurology 05/09/19 Albert Craft MD [address] [place] [address] [address] [place] [address] Consulting Physician Gastroenterology 03/11/22 Chintan Figueroa MD [address] [place] [address] [address] [place] [address] Consulting Physician Hematology and Oncology 03/11/22 Jameel Bloom DPM [address] [place] [address] Consulting Physician Orthotics 03/11/22 Gadiel Genao MD [address] [place] [address] Surgeon Vascular Surgery 03/11/22 documented as of this encounter
--- OUTSIDE RECORDS SUMMARY | 2024-06-18 19:09 | XMS_ITS | Encounter Summary ---
Author Organization [facility] Healthcare Address [address] [place] [address] Care Team Providers Care Conference Specialist Name Role Phone Trey Pinedo MD Unavailable [phone] Christine Herzog MD Primary Care Provide r Albert Craft MD Unavailable [phone] Chintan Figueroa MD Unavailable [phone] Jameel Bloom DPM Unavailable [phone] Gadiel Genao MD Unavailable [phone] Reason for Visit * Reason Comments OP Infusion Here for phlebotomy. Hematocrit 48.9. Encounter Details Date Type Department Care Team (Late st Contact Info) Description 04/20/2023 2:00 PM CDT Infusion [facility] 4 [facility] [address] [place] [address] Polycythemia (Primary Dx) Social History Tobacco Use [...] on file Legal Sex Male 6:00 PM TALENT ENGINEER Gender Identity Not on file Sexual [...] ACO Care Management On track(2022 11:14 AM TALENT ENGINEER) Sepideh Guo, SUE Note: Problem: Potential for [...] 04/20/2023 documented in this encounter Care Teams Conference Specialist Relationship Specialty Start Date End Date Christine Herzog MD [address] [facility] [place] [address] PCP - General Internal Medicine 12/02/21 Trey Pinedo MD [address] [place] [address] [address] [place] [address] Consulting Physician Neurology 05/09/19 Ablert Craft MD [address] [place] [address] [place] [address] Consulting Physician Gastroenterology 03/11/22 Chintan Figueroa MD [address] [facility] [place] [address] Consulting Physician Hematology and Oncology 03/11/22 Jameel Bloom DPM [address] [place] [address] [place] [address] Consulting Physician Orthotics 03/11/22 Gadiel Genao MD [address] [place] [address] Surgeon Vascular Surgery 03/11/22 documented as of this encounter
--- OUTSIDE RECORDS SUMMARY | 2024-06-18 19:09 | XMS_ITS | Encounter Summary ---
Author Organization [facility] Address [address] [facility] [address] [place] [address] Care Team Providers Care Internal Combustion Engine Inspector Name Role Phone Trey Pinedo MD Unavailable [phone] Christine Herzog MD Primary Care Provide r Albert Craft MD Unavailable [phone] Chintan Figueroa MD Unavailable [phone] Jameel Bloom DPM Unavailable [phone] Gadiel Genao MD Unavailable Encounter Details Date Type Department Care Team (Late st Contact Info) Description 11/17/2022 Orders Only [facility] Primary Care at [address] [place] [address] Christine Herzog MD [address] [place] [address] [address] [place] [address] Healthcare maintenance (Primary Dx); Type 2 diabetes mellitus without complication, unspecified whether skilled nursing insulin use (HCC) Social History Tobacco Use [...] often do you attend chur ch or bahai services? Patient declined 09/28/2022 Do you belong [...] on file Legal Sex Male 6:00 PM CLERICAL ADVISER Gender Identity Not on file Sexual Orientation Straight 01/23/2021 10 :16 PM CDT documented as of this encounter Plan of Treatment Not on file documented as of this encounter Goals Goal Patient Goal Type Associated Problems Recent Progress Patient-Stated? Author GULSHAN General Goal - Patient schedules and keeps appointments with all recommended providers ACO Care Management On track(2022 11:14 AM CLERICAL ADVISER) No Sepideh Hi RN Note: Problem: Potential [...] children were not included. ?? (Diabetes Care 31:[id number], 2008). ??The eAG is not equivalent to a fasting glucose. Blood 01/26/2023 12:3 9 PM CDT 01/26/2023 1:57 PM CDT Narrative [facility] ([place]) - 01/26/2023 2:26 PM CDT fasting Christine Herzog MD LAB BLOOD ORDERABLES Final Result [facility] ([place]) 1 [facility] [place] [address] * (ABNORMAL) Lipid panel (01/26/2023 12:39 PM [...] Result [facility] ([place]) 1 [facility] [place] [address] * (ABNORMAL) CBC with auto differential (01/26/2023 [...] PM CDT 01/26/2023 1:56 PM CDT [facility]ative [facility] - 01/26/2023 2:01 PM CDT fasting Christine Herzog MD LAB BLOOD ORDERABLES Final Result [facility] ([place]) 1 [facility] [place] [address] * (ABNORMAL) Comprehensive metabolic panel (01/26/2023 12:39 PM CDT) Sodium 141 135 - 145 mmol/L [facility] Potassium, pl 5.0(H) 3.3 - 4.9 mmol/L [facility] ([place]) Chloride 107 97 - 110 mmol/L [facility] ([place]) CO2 24 22 - 32 mmol/L [facility]) Anion gap 11 2 - 15 mmol/L [facility] BUN 33(H) 6 - 25 [...] [facility] [place] [address] * (ABNORMAL) Albumin Creatinine Ratio, Urine (01/26/2023 12:38 PM CDT) Albumin Ur 268.5 mg/L [facility] ([place]) Comment: Interpretive Data No reference range established. Current interpretive data was last revised 2018. Testing performed by: [facility], [address] [place] [address], [place]., [address] Creatinine Ur 157.6 mg/dL [facility] ([place]) Comment: Interpretive Data No reference range established. Current interpretive data was last revised 2018. Testing performed by: [facility], [address] [place] [address]., [address] Albumin Creatinine Ratio, Ur 170(H) 1 - 29 mg/g [facility] ([place]) Comment:Testing performed by : [facility], [address] [place] [address]., [address] Urine 01/26/2023 12:3 8 PM CDT 01/27/2023 9:10 AM CDT Narrative [facility] ([place]) - 01/27/2023 12:57 PM CDT fasting Christine Herzog MD LAB URINE ORDERABLES Final Result [facility] ([place] 1 [facility] [place] [address] documented in this encounter Visit Diagnoses Diagnosis Healthcare maintenance- Primary Type 2 diabetes mellitus without complication, unspecified whether terminal clerk insulin use (HCC) Benign prostatic hyperplasia with lower urinary tract symptoms, symptom details unspecified Healthcare maintenance Type 2 diabetes mellitus without complication, unspecified whether skilled nursing insulin use (HCC) documented in this encounter Care Teams Internal Combustion Engine Inspector Relationship Specialty Start Date End Date Christine Herzog MD 2 [facility] [place] [address] PCP - General Internal Medicine 12/02/21 Trey Pinedo MD [address] [place] [address] [address] [place] [address] Consulting Physician Neurology 05/09/19 Albert Craft MD 2 [facility] [place] [address] Consulting Physician Gastroenterology 03/11/22 Chintan Figueroa MD 2 [facility] [place] [address] Consulting Physician Hematology and Oncology 03/11/22 Jameel Bloom DPM [address] [place] [address] Consulting Physician Orthotics 03/11/22 Gadiel Genao MD [address] [place] [address] Surgeon Vascular Surgery 03/11/22 documented as of this encounter
--- OUTSIDE RECORDS SUMMARY | 2024-06-18 19:09 | XMS_ITS | Encounter Summary ---
Author Organization [facility] Healthcare Address [address] [place] [address] Care Team Providers Care Student Admissions Clerk Name Role Phone Trey Pinedo MD Unavailable [phone] Christine Herzog MD Primary Care Provide r Albert Craft MD Unavailable [phone] Chintan Figueroa MD Unavailable [phone] Jameel Bloom DPM Unavailable [phone] Gadiel Genao MD Unavailable [phone] Encounter Details Date Type Department Care Team (Late st Contact Info) Description 11/18/2022 1:00 PM CDT Lab [facility] 4 [facility] [address] [place] [address] Polycythemia Social History Tobacco Use Types Packs/Day [...] file Legal Sex Male 6:00 PM BUSINESS OBJECTS CONSULTANT Gender Identity Not on file Sexual Orientation Straight 01/23/2021 10 :16 PM CDT documented as of this encounter Plan of Treatment Not on file documented as of this encounter Goals Goal Patient Goal Type Associated Problems Recent Progress Patient-Stated? Author GULSHAN General Goal - Patient schedules and keeps appointments with all recommended providers ACO Care Management On track(2022 11:14 AM BUSINESS OBJECTS CONSULTANT) No Sepideh Hi RN Note: Problem: Potential [...] 1:04 PM CDT us Monika D. Biciocchi INTERMEDIATE FRAME TENDER LAB BLOOD ORDERABLES Final Result [facility] ([place]) 1 [facility] [employer] of [employer] [place] [address] * (ABNORMAL) CBC with auto differential (11/18/2022 [...] CDT Start in June us Monika Castellano INTERMEDIATE FRAME TENDER LAB BLOOD ORDERABLES Final Result [facility] ([place]) 1 [facility] Department of [employer] [place] [address] documented in this encounter Visit Diagnoses Diagnosis Polycythemia Polycythemia, secondary documented in this encounter Care Teams Student Admissions Clerk Relationship Specialty Start Date End Date Christine Herzog MD 2 [facility] [address] [place] [address] PCP - General Internal Medicine 12/02/21 Trey Pinedo MD [address] [facility] [address] [place] [address] Consulting Physician Neurology 05/09/19 Albert Craft MD [address] [facility] [address] [place] [address] Consulting Physician Gastroenterology 03/11/22 Chintan Figueroa MD [address] [facility] [address] [place] [address] Consulting Physician Hematology and Oncology 03/11/22 Jameel Bloom DPM [address] [place] [address] Consulting Physician Orthotics 03/11/22 Gadiel eGnao MD [address] [place] [address] Surgeon Vascular Surgery 03/11/22 documented as of this encounter
--- OUTSIDE RECORDS SUMMARY | 2024-06-18 19:09 | XMS_ITS | Encounter Summary ---
Author Organization [facility] Healthcare Address [address] [place] [address] Care Team Providers Care Litigation Legal Assistant Name Role Phone Trey Pinedo MD Unavailable [phone] Christine Herzog MD Primary Care Provide r Albert Craft MD Unavailable [phone] Chintan Figueroa MD Unavailable [phone] Jameel Bloom DPM Unavailable [phone] Gadiel Genao MD Unavailable [phone] Reason for Visit * Reason Comments OP Infusion Here for a phlebotom y. Hematocrit 46.6. Encounter Details Date Type Department Care Team (Late st Contact Info) Description 11/18/2022 2:00 PM CDT Infusion [facility] 4 [facility] [address] [place] [address] Polycythemia (Primary Dx) Social History Tobacco Use [...] you attend chur ch or hindu services? Patient declined 09/28/2022 Do you belong to any clubs o r organizations such as episcopal groups, unions, fraternal or athletic groups, or [...] on file Legal Sex Male 6:00 PM INVENTORY CHECKER Gender Identity Not on file Sexual Orientation [...] ACO Care Management On track(2022 11:14 AM INVENTORY CHECKER) Sepideh Guo, SUE Note: Problem: Potential for [...] 11/18/2022 documented in this encounter Care Teams Litigation Legal Assistant Relationship Specialty Start Date End Date Christnie Herzog MD [address] [facility] [address] [place] [address] PCP - General Internal Medicine 12/02/21 Trey Pinedo MD [address] [facility] [address] [place] [address] Consulting Physician Neurology 05/09/19 Albert Craft MD [address] [facility] [address] [place] [address] Consulting Physician Gastroenterology 03/11/22 Chintan Figueroa MD [address] [facility] [address] [address] Consulting Physician Hematology and Oncology 03/11/22 Jameel Bloom DPM [address] [place] [address] Consulting Physician Orthotics 03/11/22 Gadiel Genao MD [address] [place] [address] Surgeon Vascular Surgery 03/11/22 documented as of this encounter
--- OUTSIDE RECORDS SUMMARY | 2024-06-18 19:09 | XMS_ITS | Encounter Summary ---
Author Organization [facility] Healthcare Address [address] [place] [address] Care Team Providers Care Traffic Superintendent Name Role Phone Trey Pinedo MD Unavailable [phone] Christine Herzog MD Primary Care Provide r Albert Craft MD Unavailable [phone] Chintan Figueroa MD Unavailable [phone] Jameel Bloom DPM Unavailable [phone] Gadiel Genao MD Unavailable [phone] Reason for Visit * Reason Comments Phlebotomy Encounter Details Date Type Department Care Team (Late st Contact Info) Description 07/27/2023 1:45 PM [facility] at [address] [place] [phone] Polycythemia (Primary Dx) Social History Tobacco Use [...] on file Legal Sex Male 6:00 PM METALIZER FIELD OPERATION Gender Identity Not on file Sexual Orientation Straight 01/23/2021 10 :16 PM CDT documented as of this encounter Last Filed Vital Signs Vital Sign Reading Time Taken Comments Blood Pressure 124/60 07/27/2023 2:56 PM METALIZER FIELD OPERATION Pulse - - Temperature - - Respiratory [...] this time and left in stable condition. LIZER FIELD OPERATION documented in this encounter Plan of Treatment Not on file documented as of this encounter Goals Goal Patient Goal Type Associated Problems Recent Progress Patient-Stated? Author GULSHAN General Goal - Patient schedules and keeps appointments with all recommended providers ACO Care Management On track(2022 11:14 AM METALIZER FIELD OPERATION) Sepideh Guo, SUE Note: Problem: Potential for [...] 07/27/2023 documented in this encounter Care Teams Traffic Superintendent Relationship Specialty Start Date End Date Christine Herzog MD [address] [facility] [address] [place] [address] PCP - General Internal Medicine 12/02/21 Trey Pinedo MD [address] [place] [address] [address] [place] [address] Consulting Physician Neurology 05/09/19 Albert Craft MD [address] [place] [address] [address] [place] [address] Consulting Physician Gastroenterology 03/11/22 Chintan Figueroa MD [address] [place] [address] [address] [place] [address] Consulting Physician Hematology and Oncology 03/11/22 Jameel Bloom DPM [address] [place] [address] Consulting Physician Orthotics 03/11/22 Gadiel Genao MD [address] [place] [address] Surgeon Vascular Surgery 03/11/22 documented as of this encounter
--- OUTSIDE RECORDS SUMMARY | 2024-06-18 19:09 | XMS_ITS | Encounter Summary ---
Author Organization [facility] Address [address] [place] [address] Phone Care Team Providers Care Cargo Handler Name Role Phone Trey Pinedo MD Unavailable Christine Herzog MD Primary Care Provide r Albert Craft MD Unavailable [phone] Chintan Figueroa MD Unavailable Jameel Bloom DPM Unavailable [phone] Gadiel Genao MD Unavailable Reason for Visit * Reason Comments Follow-up Polycythemia Encounter Details Date Type Department Care Team (Late st Contact Info) Description 05/22/2023 10:45 AM CHIP APPLYING MACHINE TENDER Office Visit [facility] [address] [place] [address] Medical Office [address]olin[address] [place] [address] Chintan Figueroa MD [address] [place] [address] [address] [place] [address] Polycythemia Social History Tobacco Use Types Packs/Day [...] on file Legal Sex Male 6:00 PM CHIP APPLYING MACHINE TENDER Gender Identity Not on file Sexual Orientation Straight 01/23/2021 10 :16 PM CDT documented as of this encounter Last Filed Vital Signs Vital Sign Reading Time Taken Comments Blood Pressure 156/60 05/22/2023 10:56 AM CHIP APPLYING MACHINE TENDER Pulse 50 05/22/2023 10:56 AM CHIP APPLYING MACHINE TENDER Temperature 35.9 ??C (96.6 ??F) 05/22/2023 10:[address] Respiratory Rate - - Oxygen Saturation 98% 05/22/2023 10:56 AM CHIP APPLYING MACHINE TENDER Inhaled Oxygen Concentration - - Weight 88.1 kg (194 lb 3.2 oz) 05/22/2023 10:56 AM CHIP APPLYING MACHINE TENDER Height - - Body Mass Index 30.42 04/20/2023 1:22 PM CDT documented in this encounter Progress Notes * Monika Castellano, PROCESS PROJECT ENGINEER - 05/22/2023 10:45 AM CST Images from [...] grams/deciliter. Patient reported he established care with tarper, Dr. Hoskins who recommended regular phlebotomy to [...] Recent labs, radiology and pathology reviewed in [facility] ASSESSMENT: Secondary Erythrocytosis likely due [...] physician. NIURKA Sidhu Nurse Practitioner Medical Oncology [facility] APPLYING MACHINE TENDER documented in this encounter Miscellaneous Notes * Addendum Note - Alla Huerta CLT - 05/22/2023 10:45 AM CSTAddended by: ALLA HUERTA on: 07/27/2023 01:52 PM Modules accepted: Orders APPLYING MACHINE TENDER documented in this encounter Plan of Treatment Not on file documented as of this encounter Goals Goal Patient Goal Type Associated Problems Recent Progress Patient-Stated? Author GULSHAN General Goal - Patient schedules and keeps appointments with all recommended providers ACO Care Management On track(2022 11:14 AM CHIP APPLYING MACHINE TENDER) Sepideh Guo RN Note: Problem: Potential for [...] 023 documented in this encounter Care Teams Cargo Handler Relationship Specialty Start Date End Date Christine Herzog MD [address] [facility] [address] [place] [address] PCP - General Internal Medicine 12/02/21 Trey Pinedo MD [address] [facility] [address] [place] [address] Consulting Physician Neurology 05/09/19 Albert Craft MD [address] [place] [address] [address] [place] [address] Consulting Physician Gastroenterology 03/11/22 Chintan Figueroa MD [address] [place] [address] [address] [place] [address] Consulting Physician Hematology and Oncology 03/11/22 Jameel Bloom DPM [address] [place] [address] Consulting Physician Orthotics 03/11/22 Gadiel Genao MD [address] [place] [address] Surgeon Vascular Surgery 03/11/22 documented as of this encounter
--- OUTSIDE RECORDS SUMMARY | 2024-06-18 19:09 | XMS_ITS | Encounter Summary ---
Author Organization [facility] Address [address] [facility] [address] [place] [address] Care Team Providers Care Barrel Finisher Name Role Phone Trey Pinedo MD Unavailable [phone] Christine Herzog MD Primary Care Provide r Albert Craft MD Unavailable [phone] Chintan Figueroa MD Unavailable [phone] Jameel Bloom DPM Unavailable [phone] Gadiel Genao MD Unavailable Encounter Details Date Type Department Care Team (Late st Contact Info) Description 12/15/2022 Telephone [facility] Medical [facility] [place] [address] [facility] [address] [place] [address] Christine Herzog MD [address] [place] [address] [address] [place] [address] Social History Tobacco Use Types [...] any clubs o r organizations such as christianity groups, unions, fraternal or athletic groups, or [...] file Legal Sex Male 6:00 PM TALENT ACQUISITION DIRECTOR Gender Identity Not on file Sexual [...] Care Management On track(2022 11:14 AM TALENT ACQUISITION DIRECTOR) Sepideh Guo RN Note: Problem: Potential [...] on filedocumented in this encounter Care Teams Barrel Finisher Relationship Specialty Start Date End Date Christine Herzog MD [address] [facility] [address] [place] [address] PCP - General Internal Medicine 12/02/21 Trey Pinedo MD [address] [facility] [address] [place] [address] Consulting Physician Neurology 05/09/19 Albert Craft MD [address] [facility] [address] [place] [address] Consulting Physician Gastroenterology 03/11/22 Chintan Figueroa MD [address] [facility] [address] [place] [address] Consulting Physician Hematology and Oncology 03/11/22 Jameel Bloom DPM [address] [place] [address] Consulting Physician Orthotics 03/11/22 Gadiel Genao MD [address] [place] [address] Surgeon Vascular Surgery 03/11/22 documented as of this encounter
--- OUTSIDE RECORDS SUMMARY | 2024-06-18 19:09 | XMS_ITS | Encounter Summary ---
Author Organization [facility] Healthcare Address [address] [place] [address] Care Team Providers Care Supervisor Inspection Department Name Role Phone Trey Pinedo MD Unavailable [phone] Christine Herzog MD Primary Care Provide r Albert Craft MD Unavailable [phone] Chintan Figueroa MD Unavailable [phone] Jameel Bloom DPM Unavailable [phone] Gadiel Genao MD Unavailable [phone] Reason for Visit * Reason Comments Phlebotomy Encounter Details Date Type Department Care Team (Late st Contact Info) Description 05/22/2023 11:00 AM MANAGER FOREIGN Infusion [facility] [address] [facility] [address] [place] [address] Polycythemia Social History Tobacco Use Types Packs/Day [...] any clubs o r organizations such as episcopalian groups, unions, fraternal or athletic groups, or [...] file Legal Sex Male 6:00 PM MANAGER FOREIGN Gender Identity Not on file Sexual Orientation Straight 01/23/2021 10 :16 PM CDT documented as of this encounter Last Filed Vital Signs Vital Sign Reading Time Taken Comments Blood Pressure 110/57 05/22/2023 12:25 PM MANAGER FOREIGN Pulse 62 05/22/2023 12:25 PM MANAGER FOREIGN Temperature 36.2 ??C (97.1 ??F) 05/22/2023 12:[address] Respiratory Rate 16 05/22/2023 12:25 PM MANAGER FOREIGN Oxygen Saturation 97% 05/22/2023 12:25 PM MANAGER FOREIGN Inhaled Oxygen Concentration - - Weight - [...] min observation and left in stable condition. GER FOREIGN documented in this encounter Plan of Treatment Not on file documented as of this encounter Goals Goal Patient Goal Type Associated Problems Recent Progress Patient-Stated? Author GULSHAN General Goal - Patient schedules and keeps appointments with all recommended providers ACO Care Management On track(2022 11:14 AM MANAGER FOREIGN) No Sepideh Hi RN Note: Problem: Potential [...] 05/22/2023 documented in this encounter Care Teams Supervisor Inspection Department Relationship Specialty Start Date End Date Christine Herzog MD [address] [facility] [address] [place] [address] PCP - General Internal Medicine 12/02/21 Trey Pinedo MD [address] [place] [address] [address] [place] [address] Consulting Physician Neurology 05/09/19 Albert Craft MD [address] [place] [address] [address] [place] [address] Consulting Physician Gastroenterology 03/11/22 Chintan Figueroa MD [address] [place] [address] [address] [place] [address] Consulting Physician Hematology and Oncology 03/11/22 Jameel Bloom DPM [address] [place] [address] Consulting Physician Orthotics 03/11/22 Gadiel Genao MD [address] [place] [address] Surgeon Vascular Surgery 03/11/22 documented as of this encounter
--- OUTSIDE RECORDS SUMMARY | 2024-06-18 19:09 | XMS_ITS | Encounter Summary ---
Author Organization [facility] Healthcare Address [address] [place] [address] Care Team Providers Care Bin Worker Name Role Phone Trey Pinedo MD Unavailable [phone] Christine Herzog MD Primary Care Provide r Albert Craft MD Unavailable [phone] Chintan Figueroa MD Unavailable [phone] Jameel Bloom DPM Unavailable [phone] Gadiel Genao MD Unavailable [phone] Reason for Visit * Reason Comments OP Infusion Here for phlebotomy. Hematocrit 46.5. Encounter Details Date Type Department Care Team (Late st Contact Info) Description 01/26/2023 2:00 PM CDT Infusion [facility] [address] [facility] [address] [place] [address] Polycythemia (Primary Dx) Social History Tobacco Use [...] on file Legal Sex Male 6:00 PM VETERINARY 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 Gender Identity Not on file Sexual Orientation [...] ACO Care Management On track(2022 11:14 AM VETERINARY 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) Sepideh Guo, RN Note: Problem: Potential for [...] 01/26/2023 documented in this encounter Care Teams Bin Worker Relationship Specialty Start Date End Date Christine Herzog MD [address] [facility] [address] [place] [address] PCP - General Internal Medicine 12/02/21 Trey Pinedo MD [address] [facility] [address] [place] [address] Consulting Physician Neurology 05/09/19 Albert Craft MD [address] [facility] [place] [address] Consulting Physician Gastroenterology 03/11/22 Chintan Figueroa MD [address] [place] [address] [address] Consulting Physician Hematology and Oncology 03/11/22 Jameel Bloom DPM [address] [place] [address] Consulting Physician Orthotics 03/11/22 Gadiel Genao MD [address] [place] [address] Surgeon Vascular Surgery 03/11/22 documented as of this encounter
--- OUTSIDE RECORDS SUMMARY | 2024-06-18 19:10 | XMS_ITS | Encounter Summary ---
Author Organization [facility] Healthcare Address [address] [place] [address] Care Team Providers Care Independent Freight Agent Name Role Phone Trey Pinedo MD Unavailable [phone] Christine Herzog MD Primary Care Provide r Albert Craft MD Unavailable [phone] Chintan Figueroa MD Unavailable [phone] Jameel Bloom DPM Unavailable [phone] Gadiel Genao MD Unavailable [phone] Reason for Visit * Diagnostic Imaging (Routine) - Closed Specialty Diagnoses / Procedures Referred By Contac t Referred To Contact Diagnoses Paroxysmal atrial fibrillation (CMS/HCC) (HCC) Bradycardia Pulmonary hypertension (HCC) Biatrial enlargement Nonrheumatic tricuspid valve regurgitation Mixed hyperlipidemia Essential hypertension Coronary artery disease involving [place] coronary artery of [place] heart without angina pectoris Procedures NM MPI SPECT (Rest and/or Stress) Multiple Studies Bijal Galindo MD Phone: tel: fax: [address] [address] Referral ID Status Reason Start Date Expiration Date Visits Re quested Visits Authorized [id number] Closed 09/06/2022 10/06/2023 1 1 Encounter Details Date Type Department Care Team (Latest Contact Info) Description 11/03/2022 11:52 AM CDT - 11/03/2022 11:59 PM CDT Hospital Encounter [facility] Nuclear Medicine [facility] [place] [address] Bijal Galindo MD [address] [place] [address] Paroxysmal atrial fibrillation (CMS/HCC) (HCC); Bradycardia; Pulmonary hypertension (HCC); Biatrial enlargement; Nonrheumatic tricuspid valve regurgitation; Mixed hyperlipidemia; Essential hypertension; Coronary artery disease involving [place] coronary artery of [place] heart without angina pectoris Discharge Disposition: Discharge [...] you attend chur ch or uatsdin services? Patient declined 09/28/2022 Do you belong to any clubs o r organizations such as hinduism groups, unions, fraternal or athletic groups, or [...] on file Legal Sex Male 6:00 PM MALARIOLOGIST Gender Identity Not on file Sexual Orientation [...] ACO Care Management On track(2022 11:14 AM MALARIOLOGIST) Sepideh Guo RN Note: Problem: Potential for [...] hyperlipidemia Essential hypertension Coronary artery disease involving [place] coronary artery of [place] heart without angina pectoris STRESS TEST FOR DUAL READ Schedule Routine, Read Routine (OP Routine) 11/03/2022 2:30 PM CDT Paroxysmal atrial fibrillation (CMS/HCC) (HCC) Bradycardia Pulmonary hypertension (HCC) Biatrial enlargement Nonrheumatic tricuspid valve regurgitation Mixed hyperlipidemia Essential hypertension Coronary artery disease involving [place] coronary artery of [place] heart without angina pectoris documented in this encounter Results * Stress Test for Myocardial Perfusion (11/03/2022 2:30 PM CDT) Anatomical Region Laterality Modality Nuclear Medicine 11/03/2022 Narrative 11/07/2022 5:11 PM CDT [employer] Job ID: [id number] [employer] Document ID: [id number] Dictated date/time: [id number] ELECTROCARDIOGRAPHIC PORTION OF [employer] [place] STRESS TEST INDICATIONS Mr. Zuniga is [...] the above changes. Job ID/Internal Job ID: ??[id number] Bijal Galindo MD CV STRESS PROCEDURES Final R esult documented in this encounter Visit Diagnoses Diagnosis Paroxysmal atrial fibrillation (CMS/HCC) (HCC) Atrial fibrillation Bradycardia Other specified cardiac dysrhythmias Pulmonary hypertension (HCC) 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 Mixed hyperlipidemia Essential hypertension Unspecified essential hypertension Coronary artery disease involving [place] coronary artery of [place] heart without angina pectoris Paroxysmal atrial fibrillation (CMS/HCC) (HCC) Atrial fibrillation Bradycardia Other specified cardiac dysrhythmias Pulmonary hypertension (HCC) 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 Mixed hyperlipidemia Essential hypertension Unspecified essential hypertension Coronary artery disease involving [place] coronary artery of [place] heart without angina pectoris documented in this [...] documented as of this encounter Care Teams Independent Freight Agent Relationship Specialty Start Date End Date Christine Herzog MD [address] [facility] [address] [place] [address] PCP - General Internal Medicine 12/02/21 Trey Pinedo MD [address] [facility] [address] [place] [address] Consulting Physician Neurology 05/09/19 Albert Craft MD [address] [facility] [place] [address] Consulting Physician Gastroenterology 03/11/22 Chintan Figueroa MD [address] [place] [address] Consulting Physician Hematology and Oncology 03/11/22 Jameel Bloom DPM [address] [place] [address] Consulting Physician Orthotics 03/11/22 Gadiel Genao MD [address] [place] [address] Surgeon Vascular Surgery 03/11/22 documented as of this encounter
--- OUTSIDE RECORDS SUMMARY | 2024-06-18 19:10 | XMS_ITS | Encounter Summary ---
Author Organization [facility] Care [facility] es Address [address] [place] [address] Phone Care Team Providers Care Group Marketing Vp Name Role Phone Trey Pinedo MD Unavailable [phone] Christine Herzog MD Primary Care Provide r Albert Craft MD Unavailable [phone] Chintan Figueroa MD Unavailable [phone] Jameel Bloom DPM Unavailable [phone] Gadiel Genao MD Unavailable [phone] Sepideh Hi RN Unavailable [phone] Reason for Visit * Reason Comments Gait Problem * Auth/Cert Specialty Diagnoses / Procedures Referred By Contac t Referred To Contact Referral ID Status Reason Start Date Expiration Date Visits Re quested Visits Authorized [id number] 1 1 Encounter Details Date Type Department Care Team (Late st Contact Info) Description 09/01/2022 9:00 AM PLATING TANK OPERATOR APPRENTICE Home Care Visit [facility] Home Health - [address] [place] [address] Marianne Zhang, SAUL PT HOME VISIT Social [...] you attend chur ch or shinto services? Never 08/12/2022 Do you belong to [...] in a group home (including now)? 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 Male 6:00 PM PLATING TANK OPERATOR APPRENTICE Gender Identity Not on file Sexual Orientation Straight 01/23/2021 10 :16 PM CDT documented as of this encounter Last Filed Vital Signs Vital Sign Reading Time Taken Comments Blood Pressure 150/88 09/01/2022 9:49 AM PLATING TANK OPERATOR APPRENTICE Pulse 101 09/01/2022 9:49 AM PLATING TANK OPERATOR APPRENTICE Temperature 36.4 ??C (97.5 ??F) 09/01/2022 9:49 AM CS T Respiratory Rate 18 09/01/2022 9:49 AM PLATING TANK OPERATOR APPRENTICE Oxygen Saturation 97% 09/01/2022 9:49 AM PLATING TANK OPERATOR APPRENTICE Inhaled Oxygen Concentration - - Weight - - Height - - Body Mass Index - - documented in this encounter Miscellaneous Notes * Home Health Visit Narrative - Marianne Zhang PTA - 09/01/2022 10:02 AM CST spoke with pts son and pt and his will be moving in with son this weekend so will transition to the [facility] team pts address will be [address] [place] [address] will live there with son about 2-3 months then move to [place] where son is having a new house [...] on safety awareness update to care team ING TANK OPERATOR APPRENTICE documented in this encounter Plan of Treatment Not on file documented as of this encounter Goals Goal Patient Goal Type Associated Problems Recent Progress Patient-Stated? Author GULSHAN General Goal - Patient schedules and keeps appointments with all recommended providers ACO Care Management On track(2022 11:14 AM PLATING TANK OPERATOR APPRENTICE) Sepideh Guo, SUE Note: Problem: Potential for [...] home health visit Disciplines: SN, PT, OT, AIR CARGO AGENT, SHOT BAGGER, Skilled Disciplines Monitor patient's vital signs every [...] visit during episode of care Description: Home vegetable picker to measure vital signs during every home [...] comments documented in this encounter Care Teams Group Marketing Vp Relationship Specialty Start Date End Date Christine Herzog MD [address] [facility] [address] [place] [address] PCP - General Internal Medicine 12/02/21 Trey Pinedo MD [address] [facility] [address] [place] [address] Consulting Physician Neurology 05/09/19 Albert Craft MD [address] [place] [address] [address] [place] [address] Consulting Physician Gastroenterology 03/11/22 Chintan Figueroa MD [address] [place] [address] [address] [place] [address] Consulting Physician Hematology and Oncology 03/11/22 Jameel Bloom DPM [address] [place] [address] Consulting Physician Orthotics 03/11/22 Gadiel Genao MD [address] [place] [address] Surgeon Vascular Surgery 03/11/22 Sepideh Hi RN [address] [place] [address] [address] [place] [address] Community Marketing Coordinator 08/12/22 09/01/22 documented as of this encounter
--- OUTSIDE RECORDS SUMMARY | 2024-06-18 19:10 | XMS_ITS | Encounter Summary ---
Author Organization [facility] Address [address] [place] [address] Phone Care Team Providers Care Wood Heel Flap Rubber Name Role Phone Trey Pinedo MD Unavailable [phone] Christine Herzog MD Primary Care Provide r Albert Craft MD Unavailable [phone] Chintan Figueroa MD Unavailable [phone] Jameel Bloom DPM Unavailable [phone] Gadiel Genao MD Unavailable [phone] Lexii Arnold MA Unavailable [phone] Walker Carvajal LCSW Unavailable Unavailabl e Reason for Visit * Consultation (Routine) - Closed Specialty Diagnoses / Procedures Referred By Contac t Referred To Contact Neurology Diagnoses Cognitive decline Christine Herzog MD [address] [place] [address] [place] [address] Phone: tel: fax: [facility] [address] [place] [address] 6th [place] [address] [place] [address] Phone: tel: fax:[phone] Referral ID Status Reason Start Date Expiration Date V isits Requested Visits Authorized [id number] Closed Specialty Services Required 04/20/2022 05/20/2023 12 12 Encounter Details Date Type Department Care Team (Late st Contact Info) Description 09/19/2022 10:00 AM CDT Office Visit [facility] [address] [facility] [facility] 6th [place] [address] [place] [address] Bucky Hayes MD [address] [place] [address] (Fax) Cognitive decline (Primary Dx); History of [...] on file Legal Sex Male 6:00 PM 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 Villa Zuniga (: 1945) [facility], Department of Neurology [...] interested in an neisha for brain training, JumpCam is a good one that has been [...] appointment as you leave today, or call [phone]. You should continue to see your primary care doctor at regular intervals. RESOURCES FOR ADDITIONAL INFORMATION AND SUPPORT Alzheimer's Association [facility] Chapter: ; (toll free); http://www.alz.org [employer] 673-471-3715 http://memorySaint [facility] Agency on Aging (serving [facility]) http://[facility].[place].[facility]/government/hslaaa.html [facility] Agency on Aging (serving [place], [facility] and [facility] http://www.wayside emergency hospitalaaa.org [facility]- provides counseling and help with the aging and ailments of our loved ones. They may be able to provide counseling in your home as well as in their office and services may be covered by Medicare. [address], [place] [address] or [email or web address]. Website: http://Big Live/services/kqsezw-iudr-fzvwsxde/ [employer], Cognitive Stimulation Through Activity at the [place] [facility]. [address] [place] [address] http://www.Anchor ID[employer] Inc./project/rpuj-gk-cnnljo/ Lewy Body Dementia Association: (toll free); http://www.LBDA.org Association for Frontotemporal Dementias: (toll free); http://www.ftd-picks.org Geriatric Sport Psychologist: [employer], Ms. Bere Sierra, https://www.decisionpointconsulting.org/ Pathways for aging http://Hubblr.Quippi/ Alia Orellana with [employer] Elder [employer]ist, Certified Flight Operations Manager, [address], [address] [address]. , fax: [phone]. [email or web address] 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 They would only go to [employer] and a [employer] place. He can't shop independently--could perhaps superficially [...] Cerebrovascular arteriosclerosis Bilateral carotid artery disease (CMS/HCC) ([facility]) 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 Hypersomnia Obstructive sleep apnea Closed fracture of one rib of right side Closed fracture of one rib of right side, initial encounter Generalized weakness Elevated brain natriuretic peptide (BNP) level Hospital discharge follow-up Dizziness Cognitive decline Bradycardia Pulmonary hypertension (CMS/HCC) (HCC) Biatrial enlargement Paroxysmal atrial fibrillation (CMS/HCC) ([facility]) Past Medical History: Diagnosis Date [...] worse on the left. There was noorbiting. Qkasph-botx-jhjlsv was normal. No resting tremor or bradykinesia [...] in the mildly impaired range on the Hickory Naming Test (15 item) and in the [...] results took 20 minutes. Neurobehavioral test results: [facility] Neurobehavioral Status Exam Results 09/19/2022 Repository ICF signed? No Verbal Fluency Total Score 8 Hickory Naming (15 item) Total Score 13 MMSE [...] labs, tests and medical records, time spent cxll-uj-zubx with the patient and family during the visit, performing counselling and education, placing orders and documenting the visitin the patient's EHR. The denture laboratory technician spent from 9:45 to 10:15 on neuropsychological test administration and scoring. Detailed plan and patient/caregiver education and referrals are in the AVS copied below and were given to the patient and CS at the close of the visit. Patient Instructions [facility] - VISIT SUMMARY & PATIENT INSTRUCTIONS For Mr. Villa Zuniga (: 1945) [facility], Department of Neurology [...] interested in an neisha for brain training, JumpCam is a good one that has been [...] appointment as you leave today, or call [phone]. You should continue to see your primary care doctor at regular intervals. RESOURCES FOR ADDITIONAL INFORMATION AND SUPPORT Alzheimer's Association of [place] Chapter: ; (toll free); http://www.alz.org [facility] 639-485-5085 http://memorycareCassia Regional Medical Center Agency on Aging (serving [facility]) http://[facility].[place].[facility]/government/hslaaa.html [facility] Agency on Aging (serving [facility] and [facility] http://www.wayside emergency hospitalaaa.org [facility]- provides counseling and help with the aging and ailments of our loved ones. They may be able to provide counseling in your home as well as in their office and services may be covered by Medicare. [address], [place] [address] or [email or web address]. Website: http://Big Live/services/dznsxr-cevm-xxrtgqch/ [employer], Cognitive Stimulation Through Activity at the [place] [employer]. [address] [place] [address] http://www.CrowdProcess.Quippi/project/pqdk-wu-afjedm/ Lewy Body Dementia Association: (toll free); http://www.LBDA.org Association for Frontotemporal Dementias: (toll free); http://www.ftd-picks.org Geriatric Sport Psychologist: [employer], . Bere Mariela, https://www.decisionpointconsulting.org/ Pathways for aging http://Pocket Concierge/ Alia Orellana with Next Step Elder David, Certified Flight Operations Manager, [address] , [address] [address]. , fax: [phone]. [email or web address] Bucky Hayes MD [facility] documented in this encounter Miscellaneous Notes [...] ACO Care Management On track(2022 11:14 AM ORIENTATION AND MOBILITY INSTRUCTOR) Sepideh Guo RN Note: Problem: Potential for [...] too high per procedure. Testing performed by: [facility], [address] [place] [address]., [address] Blood 11/03/2022 12:1 0 PM CDT 11/03/2022 12:16 PM CDT Bucky Hayes MD LAB BLOOD ORDERABLES Final Result [facility] [address] [facility] Department [place] [address] documented in this encounter Visit [...] documented as of this encounter Care Teams Wood Heel Flap Rubber Relationship Specialty Start Date End Date Christine Herzog MD [address] [facility] [address] [place] [address] PCP - General Internal Medicine 12/02/21 Trey Pinedo MD [address] [place] [address] [address] [place] [address] Consulting Physician Neurology 05/09/19 Albert Craft MD [address] [facility] [address] [place] [address] Consulting Physician Gastroenterology 03/11/22 Chintan Figueroa MD [address] [facility] [address] [place] [address] Consulting Physician Hematology and Oncology 03/11/22 Jameel Bloom DPM [address] [place] [address] Consulting Physician Orthotics 03/11/22 Gadiel Genao MD [address] [place] [address] Surgeon Vascular Surgery 03/11/22 Lexii Arnold MA [address] [place] [address] [address] [place] [address] ACO Care Gaming Host 09/19/22 09/20/22 Walker Carvajal LCSW [address] [place] [address] [address] [place] [address] Third Hand 09/27/22 09/27/22 documented as of this encounter
--- OUTSIDE RECORDS SUMMARY | 2024-06-18 19:10 | XMS_ITS | Encounter Summary ---
Author Organization [facility] Address [address] [place] [address] Care Team Providers Care Vocal Teacher Name Role Phone Trey Pinedo MD Unavailable [phone] Christine Herzog MD Primary Care Provide r Albert Craft MD Unavailable [phone] Chintan Figueroa MD Unavailable [phone] Jameel Bloom DPM Unavailable [phone] Gadiel Genao MD Unavailable Encounter Details Date Type Department Care Team (Late st Contact Info) Description 11/16/2022 Orders Only [facility] Primary Care at [address] [place] [address] Christine Herzog MD [address] [place] [address] [address] [place] [address] Social History Tobacco Use Types [...] often do you attend chur ch or gnosticism services? 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 Author GULSHAN General Goal - Patient schedules and keeps appointments with all recommended providers ACO Care Management On track(2022 11:14 AM GANG SUPERVISOR) No Sepideh Hi RN Note: Problem: Potential [...] on filedocumented in this encounter Care Teams Vocal Teacher Relationship Specialty Start Date End Date Christine Herzog MD [address] [facility] [address] [place] [address] PCP - General Internal Medicine 12/02/21 Trey Pinedo MD [address] [facility] [address] [place] [address] Consulting Physician Neurology 05/09/19 Albert Craft MD [address] [facility] [address] [place] [address] Consulting Physician Gastroenterology 03/11/22 Chintan Figueroa MD [address] [facility] [address] [place] [address] Consulting Physician Hematology and Oncology 03/11/22 Jameel Bloom DPM [address] [place] [address] Consulting Physician Orthotics 03/11/22 Gadiel Genao MD [address] [place] [address] Surgeon Vascular Surgery 03/11/22 documented as of this encounter
--- OUTSIDE RECORDS SUMMARY | 2024-06-18 19:10 | XMS_ITS | Encounter Summary ---
Author Organization [facility] Address [address] [place] [address] Care Team Providers Care Ocean Rescue Lieutenant Name Role Phone Trey Pinedo MD Unavailable [phone] Christine Herzog MD Primary Care Provide r Albert Craft MD Unavailable [phone] Chintan Figueroa MD Unavailable [phone] Jameel Bloom DPM Unavailable [phone] Gadiel Genao MD Unavailable [phone] Reason for Visit * Reason Comments ER Follow Up Fall- skin tear on h and Encounter Details Date Type Department Care Team (Late st Contact Info) Description 09/22/2022 1:30 PM CDT Office Visit [facility] Primary Care at [address] [place] [address] Anastasia Ervin, SUPERVISOR EXTRUDING DEPARTMENT [address] [place] [address] Encounter for follow-up examination after completed treatment [...] on file Legal Sex Male 6:00 PM HANDBAG DESIGNER Gender Identity Not on file Sexual [...] - 09/22/2022 1:30 PM CDT My medical interpreter,Arianna, and I are thankful you have trusted [...] green ecchymosis to left brachial region of eih-bdq-ucdqey with palpation Hematoma with dried sanguinous drainage [...] 1st carpometacarpal joint and the triscaphe joint. Guua-wc-mzowcplk 1st interphalangeal and 2nd through 5th distal [...] ACO Care Management On track(2022 11:14 AM HANDBAG DESIGNER) Sepideh Guo, RN Note: Problem: Potential for [...] documented as of this encounter Care Teams Ocean Rescue Lieutenant Relationship Specialty Start Date End Date Christine Herzog MD [address] [facility] [place] [address] PCP - General Internal Medicine 12/02/21 Trey Pinedo MD [address] [place] [address] [address] [place] [address] Consulting Physician Neurology 05/09/19 Albert Craft MD [address] [facility] [place] [address] Consulting Physician Gastroenterology 03/11/22 Chintan Figueroa MD [address] [place] [address] [place] [address] Consulting Physician Hematology and Oncology 03/11/22 Jameel Bloom DPM [address] [place] [address] Consulting Physician Orthotics 03/11/22 Gadiel Genao MD [address] [place] [address] Surgeon Vascular Surgery 03/11/22 documented as of this encounter
--- OUTSIDE RECORDS SUMMARY | 2024-06-18 19:10 | XMS_ITS | Encounter Summary ---
Author Organization [facility] Address [address] [place] [address] Care Team Providers Care Drill Setup Operator Name Role Phone Trey Pinedo MD Unavailable [phone] Christine Herzog MD Primary Care Provide r Albert Craft MD Unavailable [phone] Chintan Figueroa MD Unavailable [phone] Jameel Bloom DPM Unavailable [phone] Gadiel Genao MD Unavailable [phone] Encounter Details Date Type Department Care Team (Late st Contact Info) Description 11/03/2022 12:30 PM CDT Lab [facility] Lab [address] [place] [address] Type 2 diabetes mellitus with hyperlipidemia (HCC) [...] on file Legal Sex Male 6:[address] INTERPRETER Gender Identity Not on file Sexual Orientation Straight 01/23/2021 10 :16 PM CDT documented as of this encounter Plan of Treatment Not on file documented as of this encounter Goals Goal Patient Goal Type Associated Problems Recent Progress Patient-Stated? Author GULSHAN General Goal - Patient schedules and keeps appointments with all recommended providers ACO Care Management On track(2022 11:[address] INTERPRETER) No Sepideh Hi RN Note: Problem: Potential [...] % [facility] Comment:Testing performed by : [facility], [address] [place] [address], [place]., [address] Estimated Average Glucose 123 mg/dL [facility] [place] Comment: The ADA recommends reporting an estimated Average Glucose (eAG) with all Hemoglobin A1c results using the equation derived from a study of 507 normal and diabetic adults. ??Minority populations were underrepresented and children were not included. ?? (Diabetes Care 31:8204-1883, 2008). ??The eAG is not equivalent to a fasting glucose. Testing performed by: [facility], [address] [place] [address], [place]., [address] Blood 11/03/2022 12:0 9 PM CDT 11/03/2022 12:16 PM CDT Narrative [facility] - 11/03/2022 12:58 PM CDT Non fasting Christine Herzog MD LAB BLOOD ORDERABLES Final Result [facility] [address] [facility] Department [place] [address] documented in this encounter Visit Diagnoses Diagnosis Type 2 diabetes mellitus with hyperlipidemia (HCC) documented in this encounter Additional Health Concerns Infection Onset Date Last Indicated Resolved Time COVID: Recovered Comment:Added based on recent COVID infection. 08/16/2022 08/17/2022 11/14/2022 3:05 AM C DT documented as of this encounter Care Teams Drill Setup Operator Relationship Specialty Start Date End Date Christine Herzog MD [address] [facility] [place] [address] PCP - General Internal Medicine 12/02/21 Trey Pinedo MD [address] [place] [address] [address] [place] [address] Consulting Physician Neurology 05/09/19 Albert Craft MD [address] [facility] [place] [address] Consulting Physician Gastroenterology 03/11/22 Chintan Figueroa MD [address] [place] [address] [place] [address] Consulting Physician Hematology and Oncology 03/11/22 Jameel Bloom DPM [address] [place] [address] Consulting Physician Orthotics 03/11/22 Gadiel Genao MD [address] [place] [address] Surgeon Vascular Surgery 03/11/22 documented as of this encounter
--- OUTSIDE RECORDS SUMMARY | 2024-06-18 19:10 | XMS_ITS | Encounter Summary ---
Author Organization [facility] Address [address] [place] [address] Phone Care Team Providers Care Auricular Detoxification Specialist Name Role Phone Trey Pinedo MD Unavailable [phone] Christine Herzog MD Primary Care Provide r Albert Craft MD Unavailable [phone] Chintan Figueroa MD Unavailable [phone] Jameel Bloom DPM Unavailable [phone] Gadiel Genao MD Unavailable [phone] Reason for Visit * Auth/Cert Specialty Diagnoses / Procedures Referred By Contac t Referred To Contact Referral ID Status Reason Start Date Expiration Date Visits Re quested Visits Authorized [id number] 1 1 Encounter Details Date Type Department Care Team (Late st Contact Info) Description 09/09/2022 12:00 PM AIR HOLE DRILLER Home Care Visit [facility] Home Health [place] [address] [address] [place] [address] Radha Martinez, PT PT REASSESSMENT [...] on file Legal Sex Male 6:00 PM AIR HOLE DRILLER Gender Identity Not on file Sexual Orientation Straight 01/23/2021 10 :16 PM CDT documented as of this encounter Last Filed Vital Signs Vital Sign Reading Time Taken Comments Blood Pressure 108/70 09/09/2022 11:49 AM AIR HOLE DRILLER Pulse 62 09/09/2022 11:49 AM AIR HOLE DRILLER Temperature 36.3 ??C (97.3 ??F) 09/09/2022 11:[address] Respiratory Rate 18 09/09/2022 11:49 AM AIR HOLE DRILLER Oxygen Saturation 97% 09/09/2022 11:49 AM AIR HOLE DRILLER Inhaled Oxygen Concentration - - Weight - [...] WW; work on balance training. Review HEP HOLE DRILLER documented in this encounter Plan of Treatment Not on file documented as of this encounter Goals Goal Patient Goal Type Associated Problems Recent Progress Patient-Stated? Author GULSHAN General Goal - Patient schedules and keeps appointments with all recommended providers ACO Care Management On track(2022 11:14 AM AIR HOLE DRILLER) Sepideh Guo, SUE Note: Problem: Potential for [...] home health visit Disciplines: SN, PT, OT, OFFSET PRINTING PRESSMEN, CREMATORY OPERATOR, Skilled Disciplines Monitor patient's vital signs [...] visit during episode of care Description: Home real estate closing coordinator to measure vital signs during every [...] able. documented in this encounter Care Teams Auricular Detoxification Specialist Relationship Specialty Start Date End Date Christine Herzog MD [address] [facility] [address] [place] [address] PCP - General Internal Medicine 12/02/21 Trey Pinedo MD [address] [place] [address] [address] [place] [address] Consulting Physician Neurology 05/09/19 Albert Craft MD [address] [place] [address] [address] [place] [address] Consulting Physician Gastroenterology 03/11/22 Chintan Figueroa MD [address] [place] [address] [place] [address] Consulting Physician Hematology and Oncology 03/11/22 Jameel Bloom DPM [address] [place] [address] Consulting Physician Orthotics 03/11/22 Gadiel Genao MD [address] [place] [address] Surgeon Vascular Surgery 03/11/22 documented as of this encounter
--- OUTSIDE RECORDS SUMMARY | 2024-06-18 19:10 | XMS_ITS | Encounter Summary ---
Author Organization [facility] Address [address] [facility] [address] [facility] [address] [place] [address] Care Team Providers Care Outdoor Recreation Specialist Name Role Phone Trey Pinedo MD Unavailable [phone] Christine Herzog MD Primary Care Provide r Albert Craft MD Unavailable [phone] Chintan Figueroa MD Unavailable [phone] Jameel Bloom DPM Unavailable [phone] Gadiel Genao MD Unavailable [phone] Reason for Visit * Reason Comments Hypertension Encounter Details Date Type Department Care Team (Late st Contact Info) Description 11/16/2022 3:00 PM CDT Office Visit [facility] Primary Care at [address] [place] [address] Christine Herzog MD [address] [place] [address] [address] [place] [address] Type 2 diabetes mellitus with [...] How often do you attend chur or adventist services? Patient declined 09/28/2022 Do [...] on file Legal Sex Male 6:00 PM EXCAVATION LABORER Gender Identity Not on file Sexual [...] MD - 11/16/2022 3:00 PM CDT My emergency medical technician and I are thankful you [...] ACO Care Management On track(2022 11:14 AM EXCAVATION LABORER) Sepideh Guo RN Note: Problem: Potential for [...] documented as of this encounter Care Teams Outdoor Recreation Specialist Relationship Specialty Start Date End Date Christine Herzog MD [address] [facility] [address] [place] [address] PCP - General Internal Medicine 12/02/21 Trey Pinedo MD [address] [place] [address] [address] [place] [address] Consulting Physician Neurology 05/09/19 Albert Craft MD [address] [place] [address] [address] [place] [address] Consulting Physician Gastroenterology 03/11/22 Chintan Figueroa MD [address] [place] [address] [address] [place] [address] Consulting Physician Hematology and Oncology 03/11/22 Jameel Bloom DPM [address] [place] [address] Consulting Physician Orthotics 03/11/22 Gadiel Genao MD [address] [place] [address] Surgeon Vascular Surgery 03/11/22 documented as of this encounter
--- OUTSIDE RECORDS SUMMARY | 2024-06-18 19:10 | XMS_ITS | Encounter Summary ---
Author Organization [facility] Address [address] [place] [address] Care Team Providers Care Rubble Placer Name Role Phone Trey Pinedo MD Unavailable [phone] Christine Herzog MD Primary Care Provide r Albert Craft MD Unavailable [phone] Chintan Figueroa MD Unavailable [phone] Jameel Bloom DPM Unavailable [phone] Gadiel Genao MD Unavailable Encounter Details Date Type Department Care Team (Late st Contact Info) Description 11/16/2022 Orders Only [facility] Primary Care at [address] [place] [address] Christine Herzog MD [address] [place] [address] [address] [place] [address] Benign prostatic hyperplasia with lower [...] on file Legal Sex Male 6:00 PM DRAMATIC AGENT Gender Identity Not on file Sexual Orientation Straight 01/23/2021 10 :16 PM CDT documented as of this encounter Plan of Treatment Not on file documented as of this encounter Goals Goal Patient Goal Type Associated Problems Recent Progress Patient-Stated? Author GULSHAN General Goal - Patient schedules and keeps appointments with all recommended providers ACO Care Management On track(2022 11:14 AM DRAMATIC AGENT) No Sepideh Hi RN Note: Problem: Potential [...] LAB BLOOD ORDERABLES Final Result [facility] [place] [address] documented in this encounter Visit Diagnoses Diagnosis Benign prostatic hyperplasia with lower urinary tract symptoms, symptom details unspecified- Primary documented in this encounter Care Teams Rubble Placer Relationship Specialty Start Date End Date Christine Herzog MD [address] [facility] [address] PCP - General Internal Medicine 12/02/21 Trey Pinedo MD [address] [facility] [address] [place] [address] Consulting Physician Neurology 05/09/19 Albert Craft MD [address] [facility] [place] [address] Consulting Physician Gastroenterology 03/11/22 Chintan Figueroa MD [address] [place] [address] Consulting Physician Hematology and Oncology 03/11/22 Jameel Bloom DPM [address] [place] [address] Consulting Physician Orthotics 03/11/22 Gadiel Genao MD [address] [place] [address] Surgeon Vascular Surgery 03/11/22 documented as of this encounter
--- OUTSIDE RECORDS SUMMARY | 2024-06-18 19:10 | XMS_ITS | Encounter Summary ---
Author Organization [facility] Address [address] [address] Care Team Providers Care Animal Therapist Name Role Phone Trey Pinedo MD Unavailable [phone] Christine Herzog MD Primary Care Provide r Albert Craft MD Unavailable [phone] Chintan Figueroa MD Unavailable [phone] Jameel Bloom DPM Unavailable [phone] Gadiel Genao MD Unavailable [phone] Reason for Referral * Diagnostic Imaging (Routine) - Closed Specialty Diagnoses / Procedures Referred By Contac t Referred To Contact Diagnoses Paroxysmal atrial fibrillation (CMS/HCC) (HCC) Bradycardia Pulmonary hypertension (HCC) Biatrial enlargement Nonrheumatic tricuspid valve regurgitation Mixed hyperlipidemia Essential hypertension Coronary artery disease involving [place] coronary artery of [place] heart without angina pectoris Procedures NM MPI SPECT (Rest and/or Stress) Multiple Studies Bijal Galindo MD Phone: tel: fax: [address] [phone] Referral ID Status Reason Start Date Expiration Date Visits Re quested Visits Authorized [id number] Closed 09/06/2022 10/06/2023 1 1 LOGGER Reason for Visit * Reason Comments Hospital Follow Up Hypertension Hyperlipidemia Encounter Details Date Type Department Care Team (Late st Contact Info) Description 09/06/2022 11:45 AM WELL LOGGER Office Visit [facility] Cardiology [address] [facility] [address] [place] [id number] Bijal Galindo MD [address] [place] [address] 3 [place] [address] Paroxysmal atrial fibrillation (CMS/HCC) (HCC) (Primary Dx); Bradycardia; Pulmonary hypertension (CMS/HCC) (HCC); Biatrial enlargement; Nonrheumatic tricuspid valve regurgitation; Mixed hyperlipidemia; Essential hypertension; Coronary artery disease involving [place] coronary artery of [place] heart without angina pectoris Social History Tobacco [...] week 08/12/2022 How often do you attend [facility] or sabianism services? Never 08/12/2022 Do you belong to [...] on file Legal Sex Male 6:00 PM WELL LOGGER Gender Identity Not on file Sexual Orientation Straight 01/23/2021 10 :16 PM CDT documented as of this encounter Last Filed Vital Signs Vital Sign Reading Time Taken Comments Blood Pressure 130/70 09/06/2022 11:48 AM WELL LOGGER Pulse 58 09/06/2022 11:48 AM WELL LOGGER Temperature - - Respiratory Rate 16 09/06/2022 11:48 AM WELL LOGGER Oxygen Saturation 99% 09/06/2022 11:48 AM WELL LOGGER Inhaled Oxygen Concentration - - Weight 80.3 kg (177 lb) 09/06/2022 11:48 AM WELL LOGGER Height 170.2 cm (5' 7 ) 09/06/2022 11:48 AM WELL LOGGER Body Mass Index 27.72 09/06/2022 11:48 AM WELL LOGGER documented in this encounter Ordered Prescriptions Prescription [...] between 22 and 25. His echocardiogram showed ftdq-ma-[id number] left atrial enlargement, it showed normal left [...] for this visit: Paroxysmal atrial fibrillation (CMS/HCC) ([facility]) (I48.0) (Primary) - ECG 12 lead - [...] Stress) Multiple Studies; Future Pulmonary hypertension (CMS/HCC) ([facility]) (I27.20) - Lipid panel; Future - Comprehensive [...] Multiple Studies; Future Coronary artery disease involving [place] coronary artery of [place] heart without angina pectoris (I25.10) - Lipid [...] no significant delta, no evidence of ACS Eykb-ho-ajwklodc left atrial enlargement and mild dilated right [...] IN THE DIAGONAL BRANCH OF THE LAD. LOGGER documented in this encounter Plan of Treatment Not on file documented as of this encounter Goals Goal Patient Goal Type Associated Problems Recent Progress Patient-Stated? Author GULSHAN General Goal - Patient schedules and keeps appointments with all recommended providers ACO Care Management On track(2022 11:14 AM WELL LOGGER) Sepideh Guo RN Note: Problem: Potential for [...] Comments ECG 12-LEAD Routine 09/06/2022 6:42 PM WELL LOGGER Paroxysmal atrial fibrillation (CMS/HCC) (HCC) Bradycardia documented in this encounter Results * NM MPI SPECT (Rest and/or Stress) Multiple Studies (11/03/2022 2:30 PM CDT) Anatomical Region Laterality Modality Body N/A Nuclear Medicine 11/03/2022 Narrative 11/09/2022 4:48 PM CDT [employer] Job ID: [id number] [employer] Document ID: [id number] Dictated date/time: [id number] MYOVIEW PORTION OF A [employer] MYOVIEW STRESS TEST DATE OF STUDY 11/03/2022. [...] up to 65%. Job ID/Internal Job ID: [id number] us Bijal Galindo MD IMG NM PROCEDURES Final Resu lt * ECG 12 lead (09/06/2022 6:42 PM WELL LOGGER) us Bijal Galindo MD ECG ORDERABLES Edited Resul t - Final documented in this encounter Visit Diagnoses Diagnosis Paroxysmal atrial fibrillation (CMS/HCC) (HCC)- Primary Atrial fibrillation Bradycardia Other specified cardiac dysrhythmias Pulmonary hypertension (HCC) 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 Mixed hyperlipidemia Essential hypertension Unspecified essential hypertension Coronary artery disease involving [place] coronary artery of [place] heart without angina pectoris Paroxysmal atrial fibrillation (CMS/HCC) (HCC) Atrial fibrillation Bradycardia Other specified cardiac dysrhythmias Pulmonary hypertension (HCC) 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 Mixed hyperlipidemia Essential hypertension Unspecified essential hypertension Coronary artery disease involving [place] coronary artery of [place] heart without angina pectoris Paroxysmal atrial fibrillation (CMS/HCC) (HCC) Atrial fibrillation Bradycardia Other specified cardiac dysrhythmias Pulmonary hypertension (HCC) 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 Mixed hyperlipidemia Essential hypertension Unspecified essential hypertension Coronary artery disease involving [place] coronary artery of [place] heart without angina pectoris documented in this [...] documented as of this encounter Care Teams Animal Therapist Relationship Specialty Start Date End Date Christine Herzog MD [address] [facility] [place] [address] PCP - General Internal Medicine 12/02/21 Trey Pinedo MD [address] [place] [address] [address] [place] [address] Consulting Physician Neurology 05/09/19 Albert Craft MD [address] [facility] [address] [place] [address] Consulting Physician Gastroenterology 03/11/22 Chintan Figueroa MD [address] [facility] [address] [place] [address] Consulting Physician Hematology and Oncology 03/11/22 Jameel Bloom DPM [address] [place] [address] Consulting Physician Orthotics 03/11/22 Gadiel Genao MD [address] [place] [address] Surgeon Vascular Surgery 03/11/22 documented as of this encounter
--- OUTSIDE RECORDS SUMMARY | 2024-06-18 19:10 | XMS_ITS | Encounter Summary ---
Author Organization [facility] Address [address] [place] [address] Phone Care Team Providers Care Rotor Plate Washer Name Role Phone Trey Pinedo MD Unavailable [phone] Christine Herzog MD Primary Care Provide r Albert Craft MD Unavailable [phone] Chintan Figueroa MD Unavailable [phone] Jameel Bloom DPM Unavailable [phone] Gadiel Genao MD Unavailable [phone] Sepideh Hi RN Unavailable [phone] Reason for Visit * Reason Comments Weakness - Generalized * Auth/Cert Specialty Diagnoses / Procedures Referred By Contac t Referred To Contact Referral ID Status Reason Start Date Expiration Date Visits Re quested Visits Authorized [id number] 1 1 Encounter Details Date Type Department Care Team (Late st Contact Info) Description 08/26/2022 9:00 AM MACHINE CUTTER Home Care Visit [facility] Home Health - [address] [place] [address] Marianne Zhang, SAUL PT HOME VISIT Social [...] you attend chur ch or confucianist services? Never 08/12/2022 Do you belong to [...] file Legal Sex Male 6:00 PM MACHINE CUTTER Gender Identity Not on file Sexual Orientation Straight 01/23/2021 10 :16 PM CDT documented as of this encounter Last Filed Vital Signs Vital Sign Reading Time Taken Comments Blood Pressure 128/80 08/26/2022 9:36 AM MACHINE CUTTER Pulse 60 08/26/2022 9:36 AM MACHINE CUTTER Temperature 35.9 ??C (96.7 ??F) 08/26/2022 9:36 AM CS T Respiratory Rate 18 08/26/2022 9:36 AM MACHINE CUTTER Oxygen Saturation 99% 08/26/2022 9:36 AM MACHINE CUTTER Inhaled Oxygen Concentration - - Weight - [...] pt and son are agreeable with poc INE CUTTER documented in this encounter Plan of Treatment Not on file documented as of this encounter Goals Goal Patient Goal Type Associated Problems Recent Progress Patient-Stated? Author GULSHAN General Goal - Patient schedules and keeps appointments with all recommended providers ACO Care Management On track(2022 11:14 AM MACHINE CUTTER) Sepideh Guo RN Note: Problem: Potential for [...] home health visit Disciplines: SN, PT, OT, RESEARCH PHYSIOLOGIST, SHANK CEMENTER HAND, Skilled Disciplines Monitor patient's vital signs every [...] visit during episode of care Description: Home snack foods mixer operator to measure vital signs during every home [...] comments documented in this encounter Care Teams Rotor Plate Washer Relationship Specialty Start Date End Date Christine Herzog MD [address] [facility] [address] [place] [address] PCP - General Internal Medicine 12/02/21 Trey Pinedo MD [address] [facility] [address] [place] [address] Consulting Physician Neurology 05/09/19 Albert Craft MD [address] [facility] [place] [address] Consulting Physician Gastroenterology 03/11/22 Chintan Figueroa MD [address] [place] [address] [address] [place] [address] Consulting Physician Hematology and Oncology 03/11/22 Jameel Bloom DPM [address] [place] [address] Consulting Physician Orthotics 03/11/22 Gadiel Genao MD [address] [place] [address] Surgeon Vascular Surgery 03/11/22 Sepideh Hi RN [address] [place] [address] [address] [place] [address] Surveyor Oil Well Directional 08/12/22 09/01/22 documented as of this encounter
--- OUTSIDE RECORDS SUMMARY | 2024-06-18 19:10 | XMS_ITS | Encounter Summary ---
Author Organization [facility] Address [address] [address] Care Team Providers Care Wood Pole Treater Name Role Phone Trey Pinedo MD Unavailable [phone] Christine Herzog MD Primary Care Provide r Albert Craft MD Unavailable [phone] Chintan Figueroa MD Unavailable [phone] Jameel Bloom DPM Unavailable [phone] Gadiel Genao MD Unavailable [phone] Encounter Details Date Type Department Care Team (Late st Contact Info) Description 10/10/2022 Telephone [facility] Cardiology [address] [facility] [address] [place] [address] Bijal Galindo MD [address] [place] [address] 3 [place] [address] Social History Tobacco Use Types [...] often do you attend chur ch or congregation services? Patient declined 09/28/2022 Do you belong [...] file Legal Sex Male 6:00 PM 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 Gender Identity Not on file [...] ACO Care Management On track(2022 11:14 AM 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) Sepideh Guo RN Note: Problem: Potential [...] as of this encounter Care Teams Wood Pole Treater Relationship Specialty Start Date End Date Christine Herzog MD [address] [facility] [address] [place] [address] PCP - General Internal Medicine 12/02/21 Trey Pinedo MD [address] [place] [address] [address] [place] [address] Consulting Physician Neurology 05/09/19 Albert Craft MD [address] [facility] [address] [place] [address] Consulting Physician Gastroenterology 03/11/22 Chintan Figueroa MD [address] [facility] [address] [place] [address] Consulting Physician Hematology and Oncology 03/11/22 Jameel Bloom DPM [address] [facility] [place] [address] Consulting Physician Orthotics 03/11/22 Gadiel Genao MD [address] [facility] [place] [address] Surgeon Vascular Surgery 03/11/22 documented as of this encounter
--- OUTSIDE RECORDS SUMMARY | 2024-06-18 19:10 | XMS_ITS | Encounter Summary ---
Author Organization [facility] Address [address] [place] [address] Phone Care Team Providers Care Block Placer Name Role Phone Trey Pinedo MD Unavailable [phone] Christine Herzog MD Primary Care Provide r Albert Craft MD Unavailable [phone] Chintan Figueroa MD Unavailable [phone] Jameel Bloom DPM Unavailable [phone] Gadiel Genao MD Unavailable [phone] Sepideh Hi RN Unavailable [phone] Reason for Visit * Auth/Cert Specialty Diagnoses / Procedures Referred By Contac t Referred To Contact Referral ID Status Reason Start Date Expiration Date Visits Re quested Visits Authorized [id number] 1 1 Encounter Details Date Type Department Care Team (Latest Contact Info) Description 09/01/2022 8:00 AM HOTEL AND DINING ROOM CASHIER Home Care Visit [facility] [address] [address] [address] [place] [address] Mary Santana, SUE SN DISCIPLINE DISCHARGE Social [...] often do you attend chur ch or catholic services? Never 08/12/2022 Do you belong to any clubs o r organizations such as mandaen groups, unions, fraternal or athletic groups, or [...] on file Legal Sex Male 6:00 PM HOTEL AND DINING ROOM CASHIER Gender Identity Not on file Sexual Orientation Straight 01/23/2021 10 :16 PM CDT documented as of this encounter Last Filed Vital Signs Vital Sign Reading Time Taken Comments Blood Pressure 150/88 09/01/2022 8:20 AM HOTEL AND DINING ROOM CASHIER Pulse 64 09/01/2022 8:20 AM HOTEL AND DINING ROOM CASHIER Temperature 36.4 ??C (97.5 ??F) 09/01/2022 8:20 AM CS T Respiratory Rate 18 09/01/2022 8:20 AM HOTEL AND DINING ROOM CASHIER Oxygen Saturation 95% 09/01/2022 8:20 AM HOTEL AND DINING ROOM CASHIER Inhaled Oxygen Concentration - - Weight - - Height - - Body Mass Index - - documented in this encounter Plan of Treatment Not on file documented as of this encounter Goals Goal Patient Goal Type Associated Problems Recent Progress Patient-Stated? Author GULSHAN General Goal - Patient schedules and keeps appointments with all recommended providers ACO Care Management On track(2022 11:14 AM HOTEL AND DINING ROOM CASHIER) No Sepideh Hi RN Note: Problem: Potential [...] Visit Type -SN Discipline Di scharge Discipline -Senior Living Problems Problem Description Start Date Status Goals Interve ntions Homebound Status Disciplines: Skilled Disciplines Patient's homebound status 08/13/2022 Active 1 goal linked to scheduled/docume nted intervention 1 goal intervention scheduled/documen kamala in this visit Medications Disciplines: Senior Living Management of home medications 08/13/2022 Resolved on 09/01/2022 1 goal linked to scheduled/docume nted intervention 4 goal interventions scheduled/documen kamala in this visit Monitor patient's vital signs every home health visit Disciplines: SN, PT, OT, AWNING CRAFTSPERSON, MANAGER LOCATION, Skilled Disciplines Monitor patient's vital signs every [...] visit during episode of care Description: Home health care aide to measure vital signs during every home [...] visit documented in this encounter Care Teams Block Placer Relationship Specialty Start Date End Date Christine Herzog MD [address] [place] [address] [address] [place] [address] PCP - General Internal Medicine 12/02/21 Trey Pinedo MD [address] [place] [address] [address] [place] [address] Consulting Physician Neurology 05/09/19 Albert Craft MD [address] [place] [address] [address] [place] [address] Consulting Physician Gastroenterology 03/11/22 Chintan Figueroa MD [address] [place] [address] [address] [place] [address] Consulting Physician Hematology and Oncology 03/11/22 Jameel Bloom DPM [address] [place] [address] Consulting Physician Orthotics 03/11/22 Gadiel Genao MD [address] [place] [address] Surgeon Vascular Surgery 03/11/22 Sepideh Hi RN [address] [place] [address] [address] [place] [address] Superintendent Maintenance 08/12/22 09/01/22 documented as of this encounter
--- OUTSIDE RECORDS SUMMARY | 2024-06-18 19:10 | XMS_ITS | Encounter Summary ---
Author Organization [facility] Address [address] [facility] [address] [place] [address] Care Team Providers Care Gemologist Name Role Phone Trey Pinedo MD Unavailable [phone] Christine Herzog MD Primary Care Provide r Albert Craft MD Unavailable [phone] Chintan Figueroa MD Unavailable [phone] Jameel Bloom DPM Unavailable [phone] Gadiel Genao MD Unavailable [phone] Encounter Details Date Type Department Care Team (Late st Contact Info) Description 11/04/2022 Telephone [facility] Medical [facility] Primary Care at [place] [address] [facility] [address] [place] [address] Christine Herzog MD [address] [place] [address] [address] [place] [address] Social History Tobacco Use Types [...] on file Legal Sex Male 6:00 PM HANDS AND DIAL INSPECTOR Gender Identity Not on file Sexual [...] ACO Care Management On track(2022 11:14 AM HANDS AND DIAL INSPECTOR) No Sepideh Hi RN Note: Problem: [...] documented as of this encounter Care Teams Gemologist Relationship Specialty Start Date End Date Christine Herzog MD [address] [place] [address] [address] [place] [address] PCP - General Internal Medicine 12/02/21 Trey Pinedo MD [address] [place] [address] [address] [place] [address] Consulting Physician Neurology 05/09/19 Albert Craft MD [address] [place] [address] [address] [place] [address] Consulting Physician Gastroenterology 03/11/22 Chintan Figueroa MD [address] [place] [address] [address] [place] [address] Consulting Physician Hematology and Oncology 03/11/22 Jameel Bloom DPM [address] [place] [address] Consulting Physician Orthotics 03/11/22 Gadiel Genao MD [address] [place] [address] Surgeon Vascular Surgery 03/11/22 documented as of this encounter
--- OUTSIDE RECORDS SUMMARY | 2024-06-18 19:10 | XMS_ITS | Encounter Summary ---
Author Organization [facility] Address [address] [facility] [address] [place] [address] Care Team Providers Care Videographer Name Role Phone Trey Pinedo MD Unavailable [phone] Christine Herzog MD Primary Care Provide r Albert Craft MD Unavailable [phone] Chintan Figueroa MD Unavailable [phone] Jameel Bloom DPM Unavailable [phone] Gadiel Genao MD Unavailable Lexii Arnold MA Unavailable [phone] Reason for Visit * Reason Comments Unsuccessful Phone Call 1 [facility] ED 09/16 Fa ll, skin tear right hand, Dtap Encounter Details Date Type Department Care Team (Late st Contact Info) Description 09/19/2022 GULSHAN ED Outreach [facility] Accountable Care Organization [address] [place] [address] Lexii Arnold MA [address] [facility] [address] [place] [address] Social History Tobacco Use Types Packs/Day Years [...] on file Legal Sex Male 6:00 PM ROUTE SALES DELIVERY DRIVER Gender Identity Not on file Sexual Orientation Straight 01/23/2021 10 :16 PM CDT documented as of this encounter Progress Notes * Lexii Arnold MA - 09/19/2022 10:00 AM CDT 1st Attempt Day 1 to contact patient. Left message with my contact information. [facility] letter sent [employer]. Thank You, HORACIO Rueda ACO Care Shrinker [facility] documented in this encounter Plan of Treatment Not on file documented as of this encounter Goals Goal Patient Goal Type Associated Problems Recent Progress Patient-Stated? Author GULSHAN General Goal - Patient schedules and keeps appointments with all recommended providers ACO Care Management On track(2022 11:14 AM ROUTE SALES DELIVERY DRIVER) No Sepideh Hi RN Note: Problem: Potential [...] documented as of this encounter Care Teams Videographer Relationship Specialty Start Date End Date Christine Herzog MD [address] [facility] [address] [place] [address] PCP - General Internal Medicine 12/02/21 Trey Pinedo MD [address] [place] [address] [address] [place] [address] Consulting Physician Neurology 05/09/19 Albert Craft MD [address] [facility] [address] [place] [address] Consulting Physician Gastroenterology 03/11/22 Chintan Figueroa MD [address] [place] [address] [address] [place] [address] Consulting Physician Hematology and Oncology 03/11/22 Jameel Bloom DPM [address] [place] [address] Consulting Physician Orthotics 03/11/22 Gadiel Genao MD [address] [place] [address] Surgeon Vascular Surgery 03/11/22 Lexii Arnold MA [address] [place] [address] [address] [place] [address] ACO Care Shrinker 09/19/22 09/20/22 documented as of this encounter
--- OUTSIDE RECORDS SUMMARY | 2024-06-18 19:10 | XMS_ITS | Encounter Summary ---
Author Organization [facility] Healthcare Address [address] [place] [address] Care Team Providers Care Government Guard Name Role Phone Trey Pinedo MD Unavailable [phone] Christine Herzog MD Primary Care Provide r Albert Craft MD Unavailable [phone] Chintan Figueroa MD Unavailable [phone] Jameel Bloom DPM Unavailable [phone] Gadiel Genao MD Unavailable [phone] Encounter Details Date Type Department Care Team (Late st Contact Info) Description 09/22/2022 2:30 PM CDT Infusion [facility] 4 [facility] [address] [place] [address] Polycythemia Social History Tobacco Use Types Packs/Day [...] any clubs o r organizations such as tenriism groups, unions, fraternal or athletic groups, or [...] a skilled nursing (including now)? No 08/12/2022 Personal Safety Answer Date Recorded Have you ever been in or are you currently in a harmful physical or emotional relationship or is someone making you feel afraid or unsafe? Denies 09/25/2022 Sex and Gender Information Value Date Recorded Sex Assigned at Not on file Legal Sex Male 6:00 PM MATE FISHING VESSEL Gender Identity Not on file Sexual Orientation Straight 01/23/2021 10 :16 PM CDT documented as of this encounter Plan of Treatment Not on file documented as of this encounter Goals Goal Patient Goal Type Associated Problems Recent Progress Patient-Stated? Author GULSHAN General Goal - Patient schedules and keeps appointments with all recommended providers ACO Care Management On track(2022 11:14 AM MATE FISHING VESSEL) Sepideh Guo RN Note: Problem: Potential for [...] documented as of this encounter Care Teams Government Guard Relationship Specialty Start Date End Date Christine Herzog MD [address] [place] [address] [address] [place] [address] PCP - General Internal Medicine 12/02/21 Trey Pinedo MD [address] [place] [address] [address] [place] [address] Consulting Physician Neurology 05/09/19 Albert Craft MD [address] [facility] [address] [place] [address] Consulting Physician Gastroenterology 03/11/22 Chintan Figueroa MD [address] [facility] [address] [place] [address] Consulting Physician Hematology and Oncology 03/11/22 Jameel Bloom DPM [address] [place] [address] Consulting Physician Orthotics 03/11/22 Gadiel Genao MD [address] [place] [address] Surgeon Vascular Surgery 03/11/22 documented as of this encounter
--- OUTSIDE RECORDS SUMMARY | 2024-06-18 19:10 | XMS_ITS | Encounter Summary ---
Author Organization [facility] Address [address] [facility] [address] [place] [address] Care Team Providers Care Brusher Name Role Phone Trey Pinedo MD Unavailable [phone] Christine Herzog MD Primary Care Provide r Albert Craft MD Unavailable [phone] Chintan Figueroa MD Unavailable [phone] Jameel Bloom DPM Unavailable [phone] Gadiel Genao MD Unavailable Lexii Arnold MA Unavailable [phone] Reason for Visit * Reason Comments Unsuccessful Phone Call 3 B ED 09/16 Fa ll, skin tear right hand, Dtap Encounter Details Date Type Department Care Team (Late st Contact Info) Description 09/20/2022 GUL[facility]AN ED Outreach [facility] Accountable Care Organization [address] [place] [address] Lexii Arnold MA [address] [facility] [address] [place] [address] Social History Tobacco Use Types Packs/Day Years [...] you attend chur ch or anabaptist services? Never 08/12/2022 Do you belong to [...] in a custodial (including now)? No 08/12/2022 Personal Safety Answer Date Recorded Have you ever been in or are you currently in a harmful physical or emotional relationship or is someone making you feel afraid or unsafe? Denies 09/25/2022 Sex and Gender Information Value Date Recorded Sex Assigned at Not on file Legal Sex Male 6:00 PM SECURITY SERVICES MANAGER Gender Identity Not on file Sexual Orientation Straight 01/23/2021 10 :16 PM CDT documented as of this encounter Progress Notes * Lexii Arnold MA - 09/20/2022 8:51 AM CDT 2nd Attempt to contact patient. Left mesasge with my contact information. Thank You, HORACIO Rueda ACO Care Therapist Asst [facility] documented in this encounter Plan of Treatment Not on file documented as of this encounter Goals Goal Patient Goal Type Associated Problems Recent Progress Patient-Stated? Author GULSHAN General Goal - Patient schedules and keeps appointments with all recommended providers ACO Care Management On track(2022 11:14 AM SECURITY SERVICES MANAGER) No Sepidhe Hi, SUE Note: Problem: Potential for medical [...] documented as of this encounter Care Teams Brusher Relationship Specialty Start Date End Date Christine Herzog MD [address] [facility] [address] [place] [address] PCP - General Internal Medicine 12/02/21 Trey Pinedo MD [address] [place] [address] [address] [place] [address] Consulting Physician Neurology 05/09/19 Albert Craft MD [address] [place] [address] [address] [place] [address] Consulting Physician Gastroenterology 03/11/22 Chintan Figueroa MD [address] [place] [address] [address] [place] [address] Consulting Physician Hematology and Oncology 03/11/22 Jameel Bloom DPM [address] [place] [address] Consulting Physician Orthotics 03/11/22 Gadiel Genao MD [address] [place] [address] Surgeon Vascular Surgery 03/11/22 Lexii Arnold, ELBERT [address] [place] [address] [address] [place] [address] ACO Care Therapist Asst 09/19/22 09/20/22 documented as of this encounter
--- OUTSIDE RECORDS SUMMARY | 2024-06-18 19:10 | XMS_ITS | Encounter Summary ---
Author Organization [facility] Address [address] [facility] [address] [place] [address] Care Team Providers Care Sdv Pilot/Navigator/Dds Operator Name Role Phone Trey Pinedo MD Unavailable [phone] Christine Herzog MD Primary Care Provide r Albert Craft MD Unavailable [phone] Chintan Figueroa MD Unavailable [phone] Jameel Bloom DPM Unavailable [phone] Gadiel Genao MD Unavailable Encounter Details Date Type Department Care Team (Late st Contact Info) Description 09/22/2022 Orders Only [facility] Primary Care at [address] [place] [address] Anastasia Ervin, SODA MAKER [address] [place] [address] Fall, subsequent encounter (Primary Dx); Hematoma Social [...] you attend chur ch or voodoo services? Never 08/12/2022 Do you belong to any clubs o r organizations such as judaism groups, unions, fraternal or athletic groups, or [...] in a longterm (including now)? No 08/12/2022 Personal Safety Answer Date Recorded Have you ever been in or are you currently in a harmful physical or emotional relationship or is someone making you feel afraid or unsafe? Denies 09/25/2022 Sex and Gender Information Value Date Recorded Sex Assigned at Not on file Legal Sex Male 6:00 PM WINDOWS DESKTOP SUPPORT Gender Identity Not on file Sexual Orientation Straight 01/23/2021 10 :16 PM CDT documented as of this encounter Plan of Treatment Not on file documented as of this encounter Goals Goal Patient Goal Type Associated Problems Recent Progress Patient-Stated? Author GULSHAN General Goal - Patient schedules and keeps appointments with all recommended providers ACO Care Management On track(2022 11:14 AM WINDOWS DESKTOP SUPPORT) No Sepideh Hi RN Note: Problem: Potential [...] documented as of this encounter Care Teams Sdv Pilot/Navigator/Dds Operator Relationship Specialty Start Date End Date Christine Herzog MD [address] [facility] [address] [place] [address] PCP - General Internal Medicine 12/02/21 Trey Pinedo MD [address] [place] [address] [address] [place] [address] Consulting Physician Neurology 05/09/19 Albert Craft MD [address] [place] [address] [address] [place] [address] Consulting Physician Gastroenterology 03/11/22 Chintan Figueroa MD [address] [place] [address] [address] [place] [address] Consulting Physician Hematology and Oncology 03/11/22 Jameel Bloom DPM [address] [place] [address] Consulting Physician Orthotics 03/11/22 Gadiel Genao MD [address] [place] [address] Surgeon Vascular Surgery 03/11/22 documented as of this encounter
--- OUTSIDE RECORDS SUMMARY | 2024-06-18 19:10 | XMS_ITS | Encounter Summary ---
Author Organization [facility] es Address [address] [place] [address] Phone Care Team Providers Care Coding Consultant Name Role Phone Trey Pinedo MD Unavailable [phone] Christine Herzog MD Primary Care Provide r Albert Craft MD Unavailable [phone] Chintan Figueroa MD Unavailable [phone] Jameel Bloom DPM Unavailable [phone] Gadiel Genao MD Unavailable [phone] Reason for Visit * Auth/Cert Specialty Diagnoses / Procedures Referred By Contac t Referred To Contact Referral ID Status Reason Start Date Expiration Date Visits Re quested Visits Authorized [id number] 1 1 Encounter Details Date Type Department Care Team (Late st Contact Info) Description 09/26/2022 11:30 AM CDT Home Care Visit [facility] Home Health [place] [address] [address] [place] [address] Radha Martinez, PT PT OASIS DISCHARGE Social [...] often do you attend chur ch or temple services? Never 08/12/2022 Do you belong to [...] on file Legal Sex Male 6:00 PM MOTOR ASSEMBLER Gender Identity Not on file Sexual [...] 09/26/2022 11:17 AM CDT DC pt from [facility] services as pt has returned to [...] pt can adapt to new home. Called FOOD ORDER DELIVERY RUNNER and provided pt's son with #sfor community care and [facility]. Plan to text him numbers for: day program info and memory care solutionsonce info received by FOOD ORDER DELIVERY RUNNER. It does not appear pt will qualify [...] ACO Care Management On track(2022 11:14 AM MOTOR ASSEMBLER) Sepideh Guo, RN Note: Problem: Potential for [...] home health visit Disciplines: SN, PT, OT, BI APPLICATION DEVELOPER, TECHNICAL DESIGNER, Skilled Disciplines Monitor patient's vital signs [...] visit during episode of care Description: Home slitter and cutter operator to measure vital signs during every [...] Completed documented in this encounter Care Teams Coding Consultant Relationship Specialty Start Date End Date Christine Herzog MD [address] [facility] [address] [place] [address] PCP - General Internal Medicine 12/02/21 Trey Pinedo MD [address] [facility] [address] [place] [address] Consulting Physician Neurology 05/09/19 Albert Crfat MD [address] [place] [address] [address] [place] [address] Consulting Physician Gastroenterology 03/11/22 Chintan Figueroa MD [address] [place] [address] [address] [place] [address] Consulting Physician Hematology and Oncology 03/11/22 Jameel Bloom DPM [address] [place] [address] Consulting Physician Orthotics 03/11/22 Gadiel Genao MD [address] [place] [address] Surgeon Vascular Surgery 03/11/22 documented as of this encounter
--- OUTSIDE RECORDS SUMMARY | 2024-06-18 19:10 | XMS_ITS | Encounter Summary ---
Author Organization [facility] Address [address] [place] [address] Care Team Providers Care Community Integration Specialist Name Role Phone Trey Pinedo MD Unavailable [phone] Christine Herzog MD Primary Care Provide r Albert Craft MD Unavailable [phone] Chintan Figueroa MD Unavailable [phone] Jameel Bloom DPM Unavailable [phone] Gadiel Genao MD Unavailable [phone] Reason for Visit * Reason Comments Fall Encounter Details Date Type Department Care Team (Late st Contact Info) Description 09/16/2022 7:45 AM CDT - 09/16/2022 9:06 AM CDT Emergency [address] [address] Saleem Garber MD [address] [place] [address] [address] [place] [address] Skin tear of hand without complication, right, initial encounter (Primary Dx); Fall, initial encounter; Need for vaccination with combined uhnqxoeegy-avcezjs-sm rtussis (DTaP) Discharge Disposition: Discharge to home [...] often do you attend chur ch or jainism services? Never 08/12/2022 Do you belong to [...] on file Legal Sex Male 6:00 PM PERFECT BINDER OPERATOR Gender Identity Not on file Sexual [...] Care Everywhere. * Skin Tear (AfterCare(R) Instructions(ER/ED)) (Irish) documented in this encounter Medications at Time [...] date of last tetanus.Took no pain meds LEARNING AND DEVELOPMENT ASSISTANT. Patient History: Patient Active Problem List Diagnosis Date Noted Pulmonary hypertension (CMS/HCC) ([facility]) 09/06/2022 Biatrial enlargement 09/06/2022 Paroxysmal atrial fibrillation (CMS/HCC) ([facility]) 09/06/2022 Bradycardia 08/06/2022 Cognitive decline 04/19/2022 Hospital discharge follow-up 12/15/2021 Dizziness 12/15/2021 Elevated brain natriuretic peptide (BNP) level Generalized weakness 12/09/2021 Closed fracture of one rib of right side 12/08/2021 Closed fracture of one rib of right side, initial encounter 12/08/2021 Obstructive sleep apnea 03/02/2021 Hypersomnia 01/28/2021 Mayo's esophagus with dysplasia 11/12/2019 Type 2 diabetes mellitus with hyperlipidemia ([facility]) 10/25/2019 Cerebrovascular arteriosclerosis 05/20/2019 Bilateral carotid artery disease (CMS/HCC) ([facility]) 05/20/2019 TIA (transient ischemic attack) 05/08/2019 History of noncompliance with medical treatment 05/08/2019 History of colon polyps 11/17/2018 Bladder stones 2017 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 ??Ihkh-ys-lhokfeyb 1st interphalangeal and 2nd through 5th distal [...] D: ??09/16/2022 8:04 AM T: Report ID: [id number] Reading Location: ??[id number] Procedure Note Albino Bell MD - 09/16/2022 [...] 1st carpometacarpal joint and the triscaphe joint. Vedy-ff-ypjgtjje 1st interphalangeal and 2nd through 5th distal [...] Albino Bell M.D. BC T: Report ID: [id number] Reading Location: [place] [address] Saleem Garber MD IMG XR PROCEDURES Final Re sult documented in this encounter Visit Diagnoses Diagnosis Skin tear of hand without complication, right, initial encounter- Primary Fall, initial encounter Need for vaccination with combined xrljmwtpwy-bpavqkg-zosfvvedz (DTaP) Need for prophylactic vaccination with combined cpqzswgbzj-mbqpjbv-kmmubxyhn (DTP) vaccine documented in this encounter Administered [...] documented as of this encounter Care Teams Community Integration Specialist Relationship Specialty Start Date End Date Christine Herzog MD [address] [facility] [address] [place] [address] PCP - General Internal Medicine 12/02/21 Trey Pinedo MD [address] [facility] [address] [place] [address] Consulting Physician Neurology 05/09/19 Albert Craft MD [address] [facility] [address] [place] [address] Consulting Physician Gastroenterology 03/11/22 Chintan Figueroa MD [address] [facility] [address] [place] [address] Consulting Physician Hematology and Oncology 03/11/22 Jameel Bloom DPM [address] [place] [address] Consulting Physician Orthotics 03/11/22 Gadiel Genao MD [address] [place] [address] Surgeon Vascular Surgery 03/11/22 documented as of this encounter
--- OUTSIDE RECORDS SUMMARY | 2024-06-18 19:10 | XMS_ITS | Encounter Summary ---
Author Organization [facility] Address [address] [facility] [address] [place] [address] Care Team Providers Care Lot Boss Name Role Phone Trey Pinedo MD Unavailable [phone] Christine Herzog MD Primary Care Provide r Albert Craft MD Unavailable [phone] Chintan Figueroa MD Unavailable [phone] Jameel Bloom DPM Unavailable [phone] Gadiel Genao MD Unavailable Reason for Visit * Reason Comments Successful Phone Call Encounter Details Date Type Department Care Team (Late st Contact Info) Description 09/21/2022 GULSHAN ED Outreach [facility] Accountable Care Organization [address] [place] [address] Lexii Arnold MA [address] [facility] [address] [facility] [address] [place] [address] Social History Tobacco Use Types Packs/Day Years [...] often do you attend chur ch or jehovah's witness services? Never 08/12/2022 Do you belong to any clubs o r organizations such as druze groups, unions, fraternal or athletic groups, or [...] slept in a assisted (including now)? 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 Male 6:00 PM COPYMAN Gender Identity Not on file Sexual Orientation Straight 01/23/2021 10 :16 PM CDT documented as of this encounter Progress Notes * Lexii Arnold MA - 09/21/2022 8:34 AM CDT Care Crew Caller contacted patient regarding recent ED visit at [facility] on 09/16 for fall, skin tear of hand . Status of Reason for ED Visit - Better Status Details: - Spoke to son Ian, stated pt is doing oaky. did notice when changing bandage thismorning there is a bump on wound that may look infected. CC was able to get pt an apt for tomorrow,09/22 to see WEBSPHERE DEVELOPER at office. Pt seen Neuro on 09/19 [...] ACO Care Management On track(2022 11:14 AM COPYMAN) Sepideh Guo, RN Note: Problem: Potential for [...] documented as of this encounter Care Teams Lot Boss Relationship Specialty Start Date End Date Christine Herzog MD [address] [facility] [address] [place] [address] PCP - General Internal Medicine 12/02/21 Trey Pinedo MD [address] [facility] [address] [place] [address] Consulting Physician Neurology 05/09/19 Albert Craft MD [address] [facility] [address] [place] [address] Consulting Physician Gastroenterology 03/11/22 Chintan Figueroa MD [address] [facility] [address] [place] [address] Consulting Physician Hematology and Oncology 03/11/22 Jameel Bloom DPM [address] [place] [address] Consulting Physician Orthotics 03/11/22 Gadiel Genao MD [address] [place] [address] Surgeon Vascular Surgery 03/11/22 documented as of this encounter
--- OUTSIDE RECORDS SUMMARY | 2024-06-18 19:10 | XMS_ITS | Encounter Summary ---
Author Organization [facility] Address [address] [facility] [address] [place] [address] Care Team Providers Care Sawmill Manager Name Role Phone Trey Pinedo MD Unavailable [phone] Christine Herzog MD Primary Care Provide r Albert Craft MD Unavailable [phone] Chintan Figueroa MD Unavailable [phone] Jameel Bloom DPM Unavailable [phone] Gadiel Genao MD Unavailable Reason for Visit * Reason Comments Successful Phone Call Encounter Details Date Type Department Care Team (Late st Contact Info) Description 09/26/2022 GULSHAN ED Outreach [facility] Accountable Care Organization [address] [place] [address] Lexii Arnold MA [address] [facility] [address] [facility] [address] [place] [address] Social History Tobacco Use Types Packs/Day Years [...] often do you attend chur ch or sikhism services? Never 08/12/2022 Do you belong to [...] in a snf (including now)? No 08/12/2022 Personal Safety Answer Date Recorded Have you ever been in or are you currently in a harmful physical or emotional relationship or is someone making you feel afraid or unsafe? Denies 09/25/2022 Sex and Gender Information Value Date Recorded Sex Assigned at Not on file Legal Sex Male 6:00 PM DESIGN ANALYST Gender Identity Not on file Sexual Orientation Straight 01/23/2021 10 :16 PM CDT documented as of this encounter Progress Notes * Lexii Arnold MA - 09/26/2022 8:16 AM CDT Care Entry Processor contacted patient regarding recent ED visit at [...] ACO Care Management On track(2022 11:14 AM DESIGN ANALYST) Sepideh Guo RN Note: Problem: Potential for [...] documented as of this encounter Care Teams Sawmill Manager Relationship Specialty Start Date End Date Christine Herzog MD [address] [facility] [address] [place] [address] PCP - General Internal Medicine 12/02/21 Trey Pinedo MD [address] [facility] [address] [place] [address] Consulting Physician Neurology 05/09/19 Albert Craft MD [address] [place] [address] [address] [place], [place] [address] [address] Consulting Physician Gastroenterology 03/11/22 Chintan Figueroa MD [address] [place] [address] [place] [address] Consulting Physician Hematology and Oncology 03/11/22 Jameel Bloom DPM [address] [place] [address] Consulting Physician Orthotics 03/11/22 Gadiel Genao MD [address] [place] [address] Surgeon Vascular Surgery 03/11/22 documented as of this encounter
--- OUTSIDE RECORDS SUMMARY | 2024-06-18 19:10 | XMS_ITS | Encounter Summary ---
Author Organization [facility] Healthcare Address [address] [place] [address] Care Team Providers Care Hr Consultant Name Role Phone Trey Pinedo MD Unavailable [phone] Christine Herzog MD Primary Care Provide r Albert Craft MD Unavailable [phone] Chintan Figueroa MD Unavailable [phone] Jameel Bloom DPM Unavailable [phone] Gadiel Genao MD Unavailable [phone] Encounter Details Date Type Department Care Team (Late st Contact Info) Description 09/22/2022 2:00 PM CDT Lab [facility] [address] [facility] [address] [place] [address] Polycythemia Social History Tobacco Use Types Packs/Day [...] often do you attend chur ch or congregational services? Never 08/12/2022 Do you belong to [...] slept in a jail (including now)? 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 Male 6:00 PM HOME APPRAISER Gender Identity Not on file Sexual Orientation [...] ACO Care Management On track(2022 11:14 AM HOME APPRAISER) Sepideh Guo RN Note: Problem: Potential for [...] 2:31 PM CDT us Monika D. Biciocchi OIL BOILER LAB BLOOD ORDERABLES Final Result [facility] (BETTY) 1 [facility] [place] [address] * (ABNORMAL) CBC with auto differential (09/22/2022 [...] CDT Start in June us Monika Castellano OIL BOILER LAB BLOOD ORDERABLES Final Result [facility] (BETTY) 1 [facility] Department [place] [address] documented in this encounter Visit Diagnoses Diagnosis [...] documented as of this encounter Care Teams Hr Consultant Relationship Specialty Start Date End Date Christine Herzog MD [address] [facility] [address] [place] [address] PCP - General Internal Medicine 12/02/21 Trey Pinedo MD [address] [facility] [address] [place] [address] Consulting Physician Neurology 05/09/19 Albert Craft MD [address] [facility] [address] [place] [address] Consulting Physician Gastroenterology 03/11/22 Chintan Figueroa MD [address] [facility] [address] [place] [address] Consulting Physician Hematology and Oncology 03/11/22 Jameel Bloom DPM [address] [place] [address] Consulting Physician Orthotics 03/11/22 Gadiel Genao MD [address] [place] [address] Surgeon Vascular Surgery 03/11/22 documented as of this encounter
--- OUTSIDE RECORDS SUMMARY | 2024-06-18 19:10 | XMS_ITS | Encounter Summary ---
Author Organization [facility] Healthcare Address [address] [place] [address] Care Team Providers Care Lithographic Artist Name Role Phone Trey Pinedo MD Unavailable [phone] Christine Herzog MD Primary Care Provide r Albert Craft MD Unavailable [phone] Chintan Figueroa MD Unavailable [phone] Jameel Bloom DPM Unavailable [phone] Gadiel Genao MD Unavailable [phone] Reason for Referral * Diagnostic Imaging (Routine) - Closed Specialty Diagnoses / Procedures Referred By Contac t Referred To Contact Diagnoses Paroxysmal atrial fibrillation (CMS/HCC) (HCC) Bradycardia Pulmonary hypertension (HCC) Biatrial enlargement Nonrheumatic tricuspid valve regurgitation Mixed hyperlipidemia Essential hypertension Coronary artery disease involving [place] coronary artery of [place] heart without angina pectoris Procedures NM MPI SPECT (Rest and/or Stress) Multiple Studies Bijal Galindo MD Phone: tel: fax: [address] [phone] Referral ID Status Reason Start Date Expiration Date Visits Re quested Visits Authorized [id number] Closed 09/06/2022 10/06/2023 1 1 Reason for Visit * Diagnostic Imaging (Routine) - Closed Specialty Diagnoses / Procedures Referred By Contac t Referred To Contact Diagnoses Paroxysmal atrial fibrillation (CMS/HCC) (HCC) Bradycardia Pulmonary hypertension (HCC) Biatrial enlargement Nonrheumatic tricuspid valve regurgitation Mixed hyperlipidemia Essential hypertension Coronary artery disease involving [place] coronary artery of [place] heart without angina pectoris Procedures NM MPI SPECT (Rest and/or Stress) Multiple Studies Bijal Galindo MD Phone: tel: fax: [address] [phone] Referral ID Status Reason Start Date Expiration Date Visits Re quested Visits Authorized [id number] Closed 09/06/2022 10/06/2023 1 1 Encounter Details Date Type Department Care Team (Latest Contact Info) Description 11/03/2022 11:51 AM CDT - 11/03/2022 11:59 PM CDT Hospital Encounter [facility] Nuclear Medicine [address] [place] [id number] Paroxysmal atrial fibrillation (CMS/HCC) (HCC); Bradycardia; Pulmonary hypertension (HCC); Biatrial enlargement; Nonrheumatic tricuspid valve regurgitation; Mixed hyperlipidemia; Essential hypertension; Coronary artery disease involving [place] coronary artery of [place] heart without angina pectoris Discharge Disposition: Discharge [...] on file 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 Gender Identity Not on file Sexual [...] ACO Care Management On track(2022 11:14 AM MOTORCYCLE DESIGNER) Sepideh Guo RN Note: Problem: Potential [...] hypertension Coronary artery disease involving [place] coronary artery of [place] heart without angina pectoris NM MPI SPECT (REST AND/OR STRESS) MULTIPLE STUDIES Schedule Routine, Read Routine (OP Routine) 11/03/2022 2:30 PM CDT Paroxysmal atrial fibrillation (CMS/HCC) (HCC) Bradycardia Pulmonary hypertension (HCC) Biatrial enlargement Nonrheumatic tricuspid valve regurgitation Mixed hyperlipidemia Essential hypertension Coronary artery disease involving [place] coronary artery of [place] heart without angina pectoris documented in this encounter Results * NM MPI SPECT (Rest and/or Stress) Multiple Studies (11/03/2022 2:30 PM CDT) Anatomical Region Laterality Modality Body N/A Nuclear Medicine 11/03/2022 Narrative 11/09/2022 4:48 PM CDT [employer] Job ID: [id number] [employer] Document ID: [id number] Dictated date/time: [id number] MYOVIEW PORTION OF [employer] MYOVIEW STRESS TEST DATE OF STUDY 11/03/2022. [...] up to 65%. Job ID/Internal Job ID: ??[id number] Bijal Galindo MD [facility] PROCEDURES Final Resu lt documented in this encounter Visit Diagnoses Diagnosis Paroxysmal atrial fibrillation (CMS/HCC) (HCC) Atrial fibrillation Bradycardia Other specified cardiac dysrhythmias Pulmonary hypertension (HCC) 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 Mixed hyperlipidemia Essential hypertension Unspecified essential hypertension Coronary artery disease involving [place] coronary artery of [place] heart without angina pectoris Paroxysmal atrial fibrillation (CMS/HCC) (HCC) Atrial fibrillation Bradycardia Other specified cardiac dysrhythmias Pulmonary hypertension (HCC) 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 Mixed hyperlipidemia Essential hypertension Unspecified essential hypertension Coronary artery disease involving [place] coronary artery of [place] heart without angina pectoris documented in this [...] documented as of this encounter Care Teams Lithographic Artist Relationship Specialty Start Date End Date Christine Herzog MD [address] [facility] [place] [address] PCP - General Internal Medicine 12/02/21 Trey Pinedo MD [address] [place] [address] [address] [place] [address] Consulting Physician Neurology 05/09/19 Albert Craft MD [address] [facility] [place] [address] Consulting Physician Gastroenterology 03/11/22 Chintan Figueroa MD [address] [facility] [place] [address] Consulting Physician Hematology and Oncology 03/11/22 Jameel Bloom DPM [address] [place] [address] Consulting Physician Orthotics 03/11/22 Gadiel Genao MD [address] [place] [address] Surgeon Vascular Surgery 03/11/22 documented as of this encounter
--- OUTSIDE RECORDS SUMMARY | 2024-06-18 19:10 | XMS_ITS | Encounter Summary ---
Author Organization [facility] Healthcare Address [address] [place] [address] Care Team Providers Care Brake Repairer Hydraulic Name Role Phone Trey Pinedo MD Unavailable [phone] Christine Herzog MD Primary Care Provide r Albert Craft MD Unavailable [phone] Chintan Figueroa MD Unavailable [phone] Jameel Bloom DPM Unavailable [phone] Gadiel Genao MD Unavailable [phone] Reason for Visit * Reason Comments Hand Pain Encounter Details Date Type Department Care Team (Late st Contact Info) Description 09/25/2022 8:52 PM CDT - 09/25/2022 9:43 PM CDT Emergency [facility] Emergency Department [facility] [place] [address] Contusion of right hand, subsequent encounter (Primary [...] you attend chur ch or yarsani services? 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 LB: JUSTINA Report ID: [id number] Reading Location: [id number] XR Hand Right 3 or More Views [...] 1st carpometacarpal joint and the triscaphe joint. [id number] 1st interphalangeal and 2nd through 5th distal [...] signed by Albino MALCOLM T: Report ID: [id number] Reading Location: [id number] ED COURSE/MEDICAL DECISION MAKING ED Course as [...] INSTRUCTED TO FOLLOW UP Christine Herzog MD [address] [place] [address] [address] [place] [address] DISCHARGE MEDICATIONS Your medication list ASK [...] DAILY This examination was transcribed using the [employer] voice recognition system without human regulatory affairs associate. In an effort to expedite patient care, this report has not been adjusted for typographical, grammatical, and syntax by a trained medical research assistant. Susanne Plaza NP 09/25/222202 Cosigned by Citlali Cummings MD at 09/25/2022 10:50 PM CDT * Myrna Walter RN - 09/25/2022 8:01 PM CDT Rt hand pain s/p fall 8 days ago. Seen and treated at [facility] after injury. Increased bruising to fingers and [...] ACO Care Management On track(2022 11:14 AM CONSULTANT) Sepideh Guo, RN Note: Problem: Potential for [...] PM T: ??09/25/2022 8:55 PM Report ID: [id number] Reading Location: ??[id number] Procedure Note Rob Guthrie MD - 09/25/2022 [...] Rob Guthrie M.D. LB: JUSTINA Report ID: [id number] Reading Location: [id number] Susanne Plaza ELEMENT[employer]ER IMG XR PROCEDURES Final Result documented in this encounter Visit Diagnoses Diagnosis Contusion of right hand, subsequent encounter- Primary documented in this encounter Additional Health Concerns Infection Onset Date Last Indicated Resolved Time COVID: Recovered Comment:Added based on recent COVID infection. 08/16/2022 08/17/2022 11/14/2022 3:05 AM C DT documented as of this encounter Care Teams Brake Repairer Hydraulic Relationship Specialty Start Date End Date Christine Herzog MD [address] [facility] [address] [place] [address] PCP - General Internal Medicine 12/02/21 Trey Pinedo MD [address] [facility] [address] [place] [address] Consulting Physician Neurology 05/09/19 Albert Craft MD [address] [place] [address] [address] [place] [address] Consulting Physician Gastroenterology 03/11/22 Chintan Figueroa MD [address] [place] [address] [address] [place] [address] Consulting Physician Hematology and Oncology 03/11/22 Jameel Bloom DPM [address] [place] [address] Consulting Physician Orthotics 03/11/22 Gadiel Genao MD [address] [place] [address] Surgeon Vascular Surgery 03/11/22 documented as of this encounter
--- OUTSIDE RECORDS SUMMARY | 2024-06-18 19:10 | XMS_ITS | Encounter Summary ---
Author Organization [facility] Home Care Servic es Address [address] [place] [address] Phone Care Team Providers Care Aircrewman Name Role Phone Trey Pinedo MD Unavailable [phone] Christine Herzog MD Primary Care Provide r Albert Craft MD Unavailable [phone] Chintan Figueroa MD Unavailable [phone] Jameel Bloom DPM Unavailable [phone] Gadiel Genao MD Unavailable [phone] Reason for Visit * Auth/Cert Specialty Diagnoses / Procedures Referred By Contac t Referred To Contact Referral ID Status Reason Start Date Expiration Date Visits Re quested Visits Authorized [id number] 1 1 Encounter Details Date Type Department Care Team (Late st Contact Info) Description 09/23/2022 11:30 AM CDT Home Care Visit [facility] Home Health [address] [address] [address] [place] [address] Marycarmen Cid PTA PT HOME VISIT Social [...] slept in a correction (including now)? No 08/12/2022 Personal Safety Answer Date Recorded Have you ever been in or are you currently in a harmful physical or emotional relationship or is someone making you feel afraid or unsafe? 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 EMAILS SENT TO PT & CONTINUING EDUCATION INSTRUCTOR. * Home Health Plan for Next Visit [...] ACO Care Management On track(2022 11:14 AM HORSERADISH MAKER) Sepideh Guo RN Note: Problem: Potential [...] home health visit Disciplines: SN, PT, OT, HOUSEHOLD APPLIANCES SERVICE TECHNICIAN, SHOE COBBLER, Skilled Disciplines Monitor patient's vital signs every [...] visit during episode of care Description: Home pizza hut team member to measure vital signs during every home [...] Impaired Functional Mobility/Balance Completed MULTPLE TRIALS FROM [employer] [facility] ; FROM KITCHEN [employer]AIR [employer] WITH [...] SUPPORT. documented in this encounter Care Teams Aircrewman Relationship Specialty Start Date End Date Christine Herzog MD [address] [facility] [place] [address] PCP - General Internal Medicine 12/02/21 Trey Pinedo MD [address] [facility] [address] [place] [address] Consulting Physician Neurology 05/09/19 Albert Craft MD [address] [facility] [place] [address] Consulting Physician Gastroenterology 03/11/22 Chintan Figueroa MD [address] [facility] [place] [address] Consulting Physician Hematology and Oncology 03/11/22 Jameel Bloom DPM [address] [place] [address] Consulting Physician Orthotics 03/11/22 Gadiel Genao MD [address] [place] [address] Surgeon Vascular Surgery 03/11/22 documented as of this encounter
--- OUTSIDE RECORDS SUMMARY | 2024-06-18 19:10 | XMS_ITS | Encounter Summary ---
Author Organization [facility] Healthcare Address [address] [place] [address] Care Team Providers Care Facilities Operator Name Role Phone Trey Pinedo MD Unavailable [phone] Christine Herzog MD Primary Care Provide r Albert Craft MD Unavailable [phone] Chintan Figueroa MD Unavailable [phone] Jameel Bloom DPM Unavailable [phone] Gadiel Genao MD Unavailable [phone] Encounter Details Date Type Department Care Team (Late st Contact Info) Description 11/03/2022 11:55 AM CDT Lab [facility] [address] [place] [address] Cognitive decline Social History Tobacco Use Types [...] often do you attend chur ch or evangelical services? 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 Author GULSHAN General Goal - Patient schedules and keeps appointments with all recommended providers ACO Care Management On track(2022 11:14 AM KENNEL ATTENDANT) Sepideh Guo RN Note: Problem: Potential [...] too high per procedure. Testing performed by: [facility], [address] [place] [address], [place]., [address] Blood 11/03/2022 12:1 0 PM CDT 11/03/2022 12:16 PM CDT Bucky Hayes MD LAB BLOOD ORDERABLES Final Result Performing Organization Address City/State/ZIP Co pr Phone Number [facility] [address] [facility] Department [place] [address] documented in this encounter Visit Diagnoses Diagnosis Cognitive decline documented in this encounter Additional Health Concerns Infection Onset Date Last Indicated Resolved Time COVID: Recovered Comment:Added based on recent COVID infection. 08/16/2022 08/17/2022 11/14/2022 3:05 AM C DT documented as of this encounter Care Teams Facilities Operator Relationship Specialty Start Date End Date Christine Herzog MD [address] [place] [address] [address] [place] [address] PCP - General Internal Medicine 12/02/21 Trey Pinedo MD [address] [place] [address] [address] [place] [address] Consulting Physician Neurology 05/09/19 Albert Craft MD [address] [place] [address] [address] [place] [address] Consulting Physician Gastroenterology 03/11/22 Chintan Figueroa MD [address] [place] [address] [address] [place], [place] [address], [place] [address] Consulting Physician Hematology and Oncology 03/11/22 Jameel Bloom DPM [address] [place] [address] Consulting Physician Orthotics 03/11/22 Gadiel Genao MD [address] [place] [address] Surgeon Vascular Surgery 03/11/22 documented as of this encounter
--- OUTSIDE RECORDS SUMMARY | 2024-06-18 19:10 | XMS_ITS | Encounter Summary ---
Author Organization [facility] Home Care Servic es Address [address] [place] [address] Phone Care Team Providers Care Loom Blower Name Role Phone Trey Pinedo MD Unavailable [phone] Christine Herzog MD Primary Care Provide r Albert Craft MD Unavailable [phone] Chintan Figueroa MD Unavailable [phone] Jameel Bloom DPM Unavailable [phone] Gadiel Genao MD Unavailable [phone] Sepideh Hi RN Unavailable [phone] Reason for Visit * Reason Comments Weakness - Generalized * Auth/Cert Specialty Diagnoses / Procedures Referred By Contac t Referred To Contact Referral ID Status Reason Start Date Expiration Date Visits Re quested Visits Authorized [id number] 1 1 Encounter Details Date Type Department Care Team (Late st Contact Info) Description 08/29/2022 9:00 AM TRAIN STATION AGENT Home Care Visit [facility] Home Health - [address] [place] [address] Marianne Zhang, SAUL PT HOME VISIT Social [...] often do you attend chur ch or mu-ism services? Never 08/12/2022 Do you belong to [...] slept in a intermediate (including now)? 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 Male 6:00 PM TRAIN STATION AGENT Gender Identity Not on file Sexual Orientation Straight 01/23/2021 10 :16 PM CDT documented as of this encounter Last Filed Vital Signs Vital Sign Reading Time Taken Comments Blood Pressure 132/60 08/29/2022 9:38 AM TRAIN STATION AGENT Pulse 56 08/29/2022 9:38 AM TRAIN STATION AGENT Temperature 35.3 ??C (95.6 ??F) 08/29/2022 9:38 AM CS T Respiratory Rate 18 08/29/2022 9:38 AM TRAIN STATION AGENT Oxygen Saturation 96% 08/29/2022 9:38 AM TRAIN STATION AGENT Inhaled Oxygen Concentration - - Weight - [...] moving his parents to his home in [place] over weekend discussed with him that pt will transition to the [facility] team to [facility] home care update to care team N STATION AGENT documented in this encounter Plan of Treatment Not on file documented as of this encounter Goals Goal Patient Goal Type Associated Problems Recent Progress Patient-Stated? Author GULSHAN General Goal - Patient schedules and keeps appointments with all recommended providers ACO Care Management On track(2022 11:14 AM TRAIN STATION AGENT) Sepideh Guo RN Note: Problem: Potential for [...] home health visit Disciplines: SN, PT, OT, MIXING MACHINE TENDER CORK GASKET, RAILROAD ENGINEER, Skilled Disciplines Monitor patient's vital signs every [...] visit during episode of care Description: Home forming process line worker to measure vital signs during every home [...] comments documented in this encounter Care Teams Loom Blower Relationship Specialty Start Date End Date Christine Herzog MD [address] [facility] [address] PCP - General Internal Medicine 12/02/21 Trey Pinedo MD [address] [place] [address] [address] [place] [address] Consulting Physician Neurology 05/09/19 Albert Craft MD [address] [facility] [place] [address] Consulting Physician Gastroenterology 03/11/22 Chintan Figueroa MD [address] [facility] [place] [address] Consulting Physician Hematology and Oncology 03/11/22 Jameel Bloom DPM [address] [place] [address] Consulting Physician Orthotics 03/11/22 Gadiel Genao MD [address] [place] [address] Surgeon Vascular Surgery 03/11/22 Sepideh Hi RN [address] [place] [address] [address] [place] [address] Aircraft Captain 08/12/22 09/01/22 documented as of this encounter
--- OUTSIDE RECORDS SUMMARY | 2024-06-18 19:10 | XMS_ITS | Encounter Summary ---
Author Organization [facility] Healthcare Address [address] [place] [address] Care Team Providers Care Software Applications Engineer Name Role Phone Trey Pinedo MD Unavailable [phone] Christine Herzog MD Primary Care Provide r Albert Craft MD Unavailable [phone] Chintan Figueroa MD Unavailable [phone] Jameel Bloom DPM Unavailable [phone] Gadiel Genao MD Unavailable [phone] Reason for Visit * Diagnostic Imaging (Routine) - Closed Specialty Diagnoses / Procedures Referred By Contac t Referred To Contact Diagnoses Paroxysmal atrial fibrillation (CMS/HCC) (HCC) Bradycardia Pulmonary hypertension (HCC) Biatrial enlargement Nonrheumatic tricuspid valve regurgitation Mixed hyperlipidemia Essential hypertension Coronary artery disease involving [place] coronary artery of [place] heart without angina pectoris Procedures NM MPI SPECT (Rest and/or Stress) Multiple Studies Bijal Galindo MD Phone: tel: fax: [address] [address] Referral ID Status Reason Start Date Expiration Date Visits Re quested Visits Authorized [id number] Closed 09/06/2022 10/06/2023 1 1 Encounter Details Date Type Department Care Team (Latest Contact Info) Description 11/03/2022 11:51 AM CDT - 11/03/2022 11:59 PM CDT Hospital Encounter [facility] Nuclear Medicine [address] [place] [address] Discharge Disposition: Discharge to home or self [...] often do you attend chur ch or rastafari services? 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 Gender Identity Not on file Sexual [...] ACO Care Management On track(2022 11:14 AM EMBEDDED SOFTWARE MANAGER) Sepideh Guo, RN Note: Problem: Potential for [...] hyperlipidemia Essential hypertension Coronary artery disease involving [place] coronary artery of [place] heart without angina pectoris NM MPI SPECT (REST AND/OR STRESS) MULTIPLE STUDIES Schedule Routine, Read Routine (OP Routine) 11/03/2022 2:30 PM CDT Paroxysmal atrial fibrillation (CMS/HCC) (HCC) Bradycardia Pulmonary hypertension (HCC) Biatrial enlargement Nonrheumatic tricuspid valve regurgitation Mixed hyperlipidemia Essential hypertension Coronary artery disease involving [place] coronary artery of [place] heart without angina pectoris documented in this [...] documented as of this encounter Care Teams Software Applications Engineer Relationship Specialty Start Date End Date Christine Herzog MD [address] [facility] [address] [place] [address] PCP - General Internal Medicine 12/02/21 Trey Pinedo MD [address] [facility] [address] [place] [address] Consulting Physician Neurology 05/09/19 Albert Craft MD [address] [place] [address] [address] [place], [place] [address], [place] [address] Consulting Physician Gastroenterology 03/11/22 Chintan Figueroa MD [address] [place] [address] [address] [place] [address] Consulting Physician Hematology and Oncology 03/11/22 Jameel Bloom DPM [address] [place] [address] Consulting Physician Orthotics 03/11/22 Gadiel Genao MD [address] [place] [address] Surgeon Vascular Surgery 03/11/22 documented as of this encounter
--- OUTSIDE RECORDS SUMMARY | 2024-06-18 19:11 | XMS_ITS | Encounter Summary ---
Author Organization [facility] Address [address] [facility] [address] [place] [address] Phone Care Team Providers Care Litigation Attorney Associate Name Role Phone Trey Pinedo MD Unavailable [phone] Christine Herzog MD Primary Care Provide r Albert Craft MD Unavailable [phone] Chintan Figueroa MD Unavailable [phone] Jameel Bloom DPM Unavailable [phone] Gadiel Genao MD Unavailable [phone] Reason for Visit * Reason Comments Follow-up * Consultation (Routine) - Closed Specialty Diagnoses / Procedures Referred By Contac t Referred To Contact Vascular Surgery Diagnoses Carotid artery disease (HCC) Wesley Em MD [address] [place] [address] Phone: tel: fax: Gadiel Genao MD [address] [facility] [address] [place] [address] Phone: tel: fax: Referral ID Status Reason Start Date Expiration Date V isits Requested Visits Authorized [id number] Closed Specialty Services Required 04/27/2021 05/27/2022 12 12 Encounter Details Date Type Department Care Team (Late st Contact Info) Description 07/12/2022 2:45 PM GOSPEL WORKER Office Visit [facility] Surgery [address] [facility] 8th [place] [address] [place] [address] Gadiel Genao MD [address] [facility] [address] [place] [address] PAD (peripheral artery disease) (CMS/HCC) [...] on file Legal Sex Male 6:00 PM GOSPEL WORKER Gender Identity Not on file Sexual Orientation Straight 01/23/2021 10 :16 PM CDT documented as of this encounter Last Filed Vital Signs Vital Sign Reading Time Taken Comments Blood Pressure 194/89 07/12/2022 2:56 PM GOSPEL WORKER Pulse 62 07/12/2022 2:56 PM GOSPEL WORKER Temperature - - Respiratory Rate - - Oxygen Saturation 99% 07/12/2022 2:56 PM GOSPEL WORKER Inhaled Oxygen Concentration - - Weight 82.1 kg (181 lb) 07/12/2022 2:56 PM GOSPEL WORKER Height 175.3 cm (5' 9 ) 07/12/2022 2:56 PM GOSPEL WORKER Body Mass Index 26.73 07/12/2022 2:56 PM GOSPEL WORKER documented in this encounter Progress Notes * [...] him on an as-needed basis moving forward. EL WORKER documented in this encounter Plan of Treatment Not on file documented as of this encounter Visit Diagnoses Diagnosis PAD (peripheral artery disease) (HCC)- Primary Unspecified peripheral vascular disease Stenosis of carotid artery, unspecified laterality documented in this encounter Care Teams Litigation Attorney Associate Relationship Specialty Start Date End Date Christine Herzog MD [address] [facility] [place] [address] PCP - General Internal Medicine 12/02/21 Trey Pinedo MD [address] [place] [address] [address] [place] [address] Consulting Physician Neurology 05/09/19 Albert Craft MD [address] [facility] [place] [address] Consulting Physician Gastroenterology 03/11/22 Chintan Figueroa MD [address] [facility] [place] [address] Consulting Physician Hematology and Oncology 03/11/22 Jameel Bloom DPM [address] [place] [address] Consulting Physician Orthotics 03/11/22 Gadiel Genao MD [address] [place] [address] Surgeon Vascular Surgery 03/11/22 documented as of this encounter
--- OUTSIDE RECORDS SUMMARY | 2024-06-18 19:11 | XMS_ITS | Encounter Summary ---
Author Organization [facility] Address [address] [place] [address] Phone Care Team Providers Care Hand Tacker Name Role Phone Trey Pinedo MD Unavailable [phone] Christine Herzog MD Primary Care Provide r Albert Craft MD Unavailable [phone] Chintan Figueroa MD Unavailable [phone] Jameel Bloom DPM Unavailable [phone] Gadiel Genao MD Unavailable [phone] Sepideh Hi RN Unavailable [phone] Reason for Visit * Auth/Cert Specialty Diagnoses / Procedures Referred By Contac t Referred To Contact Referral ID Status Reason Start Date Expiration Date Visits Re quested Visits Authorized [id number] 1 1 Encounter Details Date Type Department Care Team (Late st Contact Info) Description 08/13/2022 Home Care Visit [facility] Home Health - [address] [place] [address] Rosario Rowland, RN SBAR-START OF [...] in a senior living (including now)? 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 Male 6:00 PM SUPERVISOR DRY PASTE Gender Identity Not on file Sexual Orientation Straight 01/23/2021 10 :16 PM CDT documented as of this encounter Plan of Treatment Not on file documented as of this encounter Goals Goal Patient Goal Type Associated Problems Recent Progress Patient-Stated? 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 DRY PASTE) Sepideh Guo RN Note: Problem: Potential for [...] protection or goggles. Precautions 08/16/22. Contact Manager Cancer if patient worsens. SUE Baldwin 08/12/22 08/06/2022 08/06/2022 08/16/2022 3:[address] documented as of this encounter Care Teams Hand Tacker Relationship Specialty Start Date End Date Christine Herzog MD [address] [facility] [address] [place] [address] PCP - General Internal Medicine 12/02/21 Trey Pinedo MD [address] [facility] [address] [place] [address] Consulting Physician Neurology 05/09/19 Albert Craft MD [address] [place] [address] [address] [place] [address] Consulting Physician Gastroenterology 03/11/22 Chintan Figueroa MD [address] [place] [address] [address] [place], [place] [address], [place] [address] Consulting Physician Hematology and Oncology 03/11/22 Jameel Bloom DPM [address] [place] [address] Consulting Physician Orthotics 03/11/22 Gadiel Genao MD [address] [place] [address] Surgeon Vascular Surgery 03/11/22 Sepideh Hi RN [address] [place] [address] [address] [place] [address] Environmental Services Aide 08/12/22 09/01/22 documented as of this encounter
--- OUTSIDE RECORDS SUMMARY | 2024-06-18 19:11 | XMS_ITS | Encounter Summary ---
Author Organization [facility] Address [address] [place] [address] Phone Care Team Providers Care Head Of Precision Targeting Name Role Phone Trey Pinedo MD Unavailable [phone] Christine Herzog MD Primary Care Provide r Albert Craft MD Unavailable [phone] Chintan Figueroa MD Unavailable [phone] Jameel Bloom DPM Unavailable [phone] Gadiel Genao MD Unavailable [phone] Reason for Visit * Reason Onset Date Comments Appointment/Schedules 07/29/2022 Encounter Details Date Type Department Care Team (Late st Contact Info) Description 07/29/2022 Telephone [facility] [address] [facility] 6th [place] [address] [place] [address] Kristin Pena Appointment/Schedules Social History [...] file Legal Sex Male 6:00 PM WAREHOUSE GUARD Gender Identity Not on file Sexual Orientation Straight 01/23/2021 10 :16 PM CDT documented as of this encounter Miscellaneous Notes * Telephone Encounter - Kristin Pena - 07/29/2022 1:41 PM CST Son called back, confirmed that he is the CS for patient, will proceed with appointment as usual but making sure that Mr. Zuniga is accompanied by a worker from [facility] for safety during his 's visit with Dr. Hayes. & scheduled back to be back. HOUSE GUARD * Telephone Encounter - Kristin Pena - 07/29/2022 1:10 PM CST Called son, 1st unsuccessful call, LVM asking for a callback at [phone] about the appointment withDr. Hayes on 08/03/22 mb HOUSE GUARD documented in this encounter Plan of Treatment Not on file documented as of this encounter Visit Diagnoses Not on filedocumented in this encounter Care Teams Head Of Precision Targeting Relationship Specialty Start Date End Date Christine Herzog MD [address] [facility] [address] [place] [address] PCP - General Internal Medicine 12/02/21 Trey Pinedo MD [address] [place] [address] [address] [place] [address] Consulting Physician Neurology 05/09/19 Albert Craft MD [address] [place] [address] [address] [place] [address] Consulting Physician Gastroenterology 03/11/22 Chintan Figueroa MD [address] [place] [address] [place] [address] Consulting Physician Hematology and Oncology 03/11/22 Jameel Bloom DPM [address] [place] [address] Consulting Physician Orthotics 03/11/22 Gadiel Genao MD [address] [place] [address] Surgeon Vascular Surgery 03/11/22 documented as of this encounter
--- OUTSIDE RECORDS SUMMARY | 2024-06-18 19:11 | XMS_ITS | Encounter Summary ---
Author Organization [facility] Address [address] [place] [address] Phone Care Team Providers Care Medical Researcher Name Role Phone Trey Pinedo MD Unavailable [phone] Christine Herzog MD Primary Care Provide r Albert Craft MD Unavailable [phone] Chintan Figueroa MD Unavailable [phone] Jameel Bloom DPM Unavailable [phone] aGdiel Genao MD Unavailable [phone] Sepideh Hi RN Unavailable [phone] Reason for Visit * Auth/Cert Specialty Diagnoses / Procedures Referred By Contac t Referred To Contact Referral ID Status Reason Start Date Expiration Date Visits Re quested Visits Authorized [id number] 1 1 Encounter Details Date Type Department Care Team (Latest Contact Info) Description 08/13/2022 12:30 PM SYNTHETIC SOIL BLOCKS PULPER Home Care Visit [facility] Home Health [address] [place] [address] Rosario Rowland, SUE SN OASIS START OF [...] you attend chur ch or moravian services? Never 08/12/2022 Do you belong to [...] on file Legal Sex Male 6:00 PM SYNTHETIC SOIL BLOCKS PULPER Gender Identity Not on file Sexual Orientation Straight 01/23/2021 10 :16 PM CDT documented as of this encounter Last Filed Vital Signs Vital Sign Reading Time Taken Comments Blood Pressure 156/84 08/13/2022 1:38 PM SYNTHETIC SOIL BLOCKS PULPER Pulse 54 08/13/2022 1:38 PM SYNTHETIC SOIL BLOCKS PULPER Temperature 36.4 ??C (97.5 ??F) 08/13/2022 1:38 PM CS T Respiratory Rate 20 08/13/2022 1:38 PM SYNTHETIC SOIL BLOCKS PULPER Oxygen Saturation 93% 08/13/2022 1:38 PM SYNTHETIC SOIL BLOCKS PULPER Inhaled Oxygen Concentration - - Weight 67.1 kg (148 lb) 08/13/2022 1:38 PM SYNTHETIC SOIL BLOCKS PULPER Height 172.7 cm (5' 8 ) 08/13/2022 1:38 PM SYNTHETIC SOIL BLOCKS PULPER Body Mass Index 22.5 08/13/2022 1:38 PM SYNTHETIC SOIL BLOCKS PULPER documented in this encounter Miscellaneous Notes * Quality Review - Jaquan Seqeuira - 08/13/2022 12:30 PM CST Select Data [...] and recommendations completed by: LALY Lu, CCS HETIC SOIL BLOCKS PULPER documented in this encounter Plan of Treatment Not on file documented as of this encounter Goals Goal Patient Goal Type Associated Problems Recent Progress Patient-Stated? Author GULSHAN General Goal - Patient schedules and keeps appointments with all recommended providers ACO Care Management On track(2022 11:14 AM SYNTHETIC SOIL BLOCKS PULPER) Sepideh Guo, RN Note: Problem: Potential for [...] eye protection or goggles. Precautions 08/16/22. Contact Landing Signal Officer if patient worsens. SUE Baldwin 08/12/22 08/06/2022 08/06/2022 08/16/2022 3:[address] COVID: Recovered Comment:Added based on recent COVID infection. 08/16/2022 08/17/2022 11/14/2022 3:05 AM C DT documented as of this encounter Home Health Visit - Care Plan Visit Details Visit Type -SN OASIS Start o f Care Discipline -Long-Term Problems Problem Description Start Date Status Goals Interve ntions Homebound Status Disciplines: Skilled Disciplines Patient's homebound status 08/13/2022 Active 1 goal linked to scheduled/documen kamala intervention 1 goal intervention scheduled/documen kamala in this visit Medications Disciplines: Long-Term Management of home medications 08/13/2022 Active 1 goal linked to scheduled/documen kamala intervention 1 goal intervention scheduled/documen kamala in this visit Monitor patient's vital signs every home health visit Disciplines: SN, PT, OT, SPORTS INTERNSHIP, OPERATIONS LIEUTENANT, Skilled Disciplines Monitor patient's vital signs every [...] during episode of care Description: Home speech and language clinician to measure vital signs during every [...] Scheduled documented in this encounter Care Teams Medical Researcher Relationship Specialty Start Date End Date Christine Herzog MD [address] [facility] [address] [place] [address] PCP - General Internal Medicine 12/02/21 Trey Pinedo MD [address] [place] [address] [address] [place] [address] Consulting Physician Neurology 05/09/19 Albert Craft MD [address] [facility] [place] [address] Consulting Physician Gastroenterology 03/11/22 Chintan Figueroa MD [address] [place] [address] [address] [place] [address] Consulting Physician Hematology and Oncology 03/11/22 Jameel Bloom DPM [address] [place] [address] Consulting Physician Orthotics 03/11/22 Gadiel Genao MD [address] [place] [address] Surgeon Vascular Surgery 03/11/22 Sepideh Hi RN [address] [place] [address] [address] [place] [address] Patient Safety Tech 08/12/22 09/01/22 documented as of this encounter
--- OUTSIDE RECORDS SUMMARY | 2024-06-18 19:11 | XMS_ITS | Encounter Summary ---
Author Organization [facility] Address [address] [place] [address] Phone Care Team Providers Care Alterations Sewer Name Role Phone Trey Pinedo MD Unavailable [phone] Christine Herzog MD Primary Care Provide r Albert Craft MD Unavailable [phone] Chintan Figueroa MD Unavailable [phone] Jameel Bloom DPM Unavailable [phone] Lan Genao MD Unavailable Reason for Visit * Diagnostic Imaging (Routine) - Closed Specialty Diagnoses / Procedures Referred By Contac t Referred To Contact Diagnoses Carotid artery disease (HCC) PVD (peripheral vascular disease) (HCC) Procedures US Arterial Doppler Lower Extremity Bilateral Lan Genao MD Phone: tel: fax: [facility] (All Locations) Referral ID Status Reason Start Date Expiration Date Visits Re quested Visits Authorized [id number] Closed 05/25/2021 08/02/2022 99 99 Encounter Details Date Type Department Care Team (Latest Contact Info) Description 07/12/2022 1:45 PM RECOIL SPRING WINDER Ancillary Procedure [facility] V[facility] Lab at [facility] [address] [facility] 8th [place] [address] Carotid artery disease (CMS/HCC) ([facility]); PVD (peripheral vascular disease) (CMS/HCC) ([facility]) Social History Tobacco Use Types Packs/Day Years [...] on file Legal Sex Male 6:00 PM RECOIL SPRING WINDER Gender Identity Not on file Sexual Orientation Straight 01/23/2021 10 :16 PM CDT documented as of this encounter Plan of Treatment Not on file documented as of this encounter Procedures Procedure Name Priority Date/Time Associated Diagnosis Comments US ARTERIAL DOPPLER LOWER EXTREMITY BILATERAL Schedule Routine, Read Routine (OP Routine) 07/12/2022 3:19 PM RECOIL SPRING WINDER Carotid artery disease (CMS/HCC) (HCC) PVD (peripheral vascular disease) (CMS/HCC) (HCC) documented in this encounter Results * US Arterial Doppler Lower Extremity Bilateral (07/12/2022 3:19 PM RECOIL SPRING WINDER) Anatomical Region Laterality Modality Vascular Bilateral Ultrasound 07/12/2022 1:57 PM RECOIL SPRING WINDER Narrative 07/12/2022 3:25 PM RECOIL SPRING WINDER [facility] - Department of Vascular Surgery, Vascular Laboratory [address] [place] [address] Lower Extremity Arterial Doppler Report Patient Name: VERNA ZUNIGA : 04-1946 Study Date: 07/12/2022 1:57:00 PM Gender: M Tech: Location: [facility] Ref.Provider: LAN GENAO Quality: Adequate Order Provider: LAN GENAO Procedures: Arterial Report: Bilateral lower extremity arterial Doppler exam at rest. Indications: PVD (peripheral vascular disease). Measurements: Right - ?Left - ? Measurement ?Value ?Units ?Measurement ?Value ?Units ? Rt Brachial Pressure ? 212 ?mmHg ? Lt Brachial Pressure ? 219 ?mmHg ? Rt TRAVEL COUNSELOR Pressure ?209 ?mmHg ? Lt TRAVEL COUNSELOR Pressure ?236 ?mmHg ? Rt DPA Pressure [...] - ?Left - ? - Findings: Performing Offbearer Sewer Pipe: Ame Goldstein RVT/ Nayeli Reyes (student). Right [...] By: Praful Quiros MD FACS 2022-07-12 15:25:48 RECOIL SPRING WINDER CC: CC: Procedure Note Praful Quiros MD - 07/12/2022 [facility] - Department of Vascular Surgery,Vascular Laboratory [address] [place] [address] Lower Extremity Arterial Doppler Report Patient Name: VERNA ZUNIGAPatient ID: [id number] : [id number] Date: 07/12/2022 1:57:00 PM Gender: MAccession #: [id number] Tech: Location: [facility] Ref.Provider: LAN GENAOQuality: Adequate Order Provider: LAN GENAO Procedures: Arterial Report: Bilateral lower extremity arterial Doppler exam at rest. Indications: PVD (peripheral vascular disease). Measurements: Right - Left - Measurement Value Units Measurement ValueUnits Rt Brachial Pressure 212 mmHg Lt Brachial Pressure 219mmHg Rt TRAVEL COUNSELOR Pressure 209 mmHg Lt TRAVEL COUNSELOR Pressure 236mmHg Rt DPA Pressure 202 mmHg [...] Right - Left - - Findings: Performing Offbearer Sewer Pipe: Ame Goldstein RVT/ Nayeli Reyes (student). Right [...] above. Electronically Signed By: Praful Quiros MD [facility] 2022-07-12 15:25:48 RECOIL SPRING WINDER CC: CC: us Lan Genao MD IMG US PROCEDURES Final Re sult documented in this encounter Visit Diagnoses Diagnosis Carotid artery disease (HCC) Unspecified disorders of arteries and arterioles PVD (peripheral vascular disease) (HCC) Unspecified peripheral vascular disease documented in this encounter Care Teams Alterations Sewer Relationship Specialty Start Date End Date Christine Herzog MD [address] [facility] [address] [place] [address] PCP - General Internal Medicine 12/02/21 Trey Pinedo MD [address] [place] [address] [address] [place] [address] Consulting Physician Neurology 05/09/19 Albert Craft MD [address] [facility] [address] [place] [address] Consulting Physician Gastroenterology 03/11/22 Chintan Figueroa MD [address] [facility] [address] [place] [address] Consulting Physician Hematology and Oncology 03/11/22 Jameel Bloom DPM [address] [place] [address] Consulting Physician Orthotics 03/11/22 Lan Genao MD [address] [place] [address] Surgeon Vascular Surgery 03/11/22 documented as of this encounter
--- OUTSIDE RECORDS SUMMARY | 2024-06-18 19:11 | XMS_ITS | Encounter Summary ---
Author Organization [facility] Address [address] [facility] [address] [place] [address] Care Team Providers Care Search Strategist Name Role Phone Trey Pinedo MD Unavailable [phone] Christine Herzog MD Primary Care Provide r Albert Craft MD Unavailable [phone] Chintan Figueroa MD Unavailable [phone] Jameel Bloom DPM Unavailable [phone] Gadiel Genao MD Unavailable Sepideh Hi RN Unavailable Encounter Details Date Type Department Care Team (Late st Contact Info) Description 08/18/2022 Telephone [facility] at [place] [address] [facility] [address] [place] [address] Christine Herzog MD [address] [place] [address] [address] [place] [address] Social History Tobacco Use Types [...] file Legal Sex Male 6:00 PM PAYROLL CONSULTANT Gender Identity Not on file Sexual Orientation Straight 01/23/2021 10 :16 PM CDT documented as of this encounter Miscellaneous Notes * Telephone Encounter - Herve Guillen MA - 08/19/2022 1:35 PM CST Spoke with patient's son Ian on HIPAA and informed him about the message below. OLL CONSULTANT * Telephone Encounter - Christine Herzog MD - 08/19/2022 10:58 AM PAYROLL CONSULTANT Noted. Let patient know that these are important to be certain that everything is updated in the chart. OLL CONSULTANT * Telephone Encounter - Fariba Thompson - 08/19/2022 10:45 AM CST Fyi to dr baez-see message below. thanks OLL CONSULTANT * Telephone Encounter - Rach Flores - 08/18/2022 9:43 AM CST Appointment Cancellation Appt date/time:08/19/2022 Reason for appt:GULSHAN Reason for cxl:My chart NOV:2021 MARK:03/10/2022 # of cxl or no shows in last year:2 cxl Controlled Rx: Per patient unable to make the appointment. Has been seen by Home Health twice this week. He is recovering from Covid well. OLL CONSULTANT documented in this encounter Plan of Treatment Not on file documented as of this encounter Goals Goal Patient Goal Type Associated Problems Recent Progress Patient-Stated? Author GULSHAN General Goal - Patient schedules and keeps appointments with all recommended providers ACO Care Management On track(2022 11:14 AM PAYROLL CONSULTANT) Sepideh Guo, SUE Note: Problem: Potential for [...] documented as of this encounter Care Teams Search Strategist Relationship Specialty Start Date End Date Christine Herzog MD [address] [facility] [address] [place] [address] PCP - General Internal Medicine 12/02/21 Trey Pinedo MD [address] [place] [address] [address] [place] [address] Consulting Physician Neurology 05/09/19 Albert Craft MD [address] [place] [address] [place] [address] Consulting Physician Gastroenterology 03/11/22 Chintan Figueroa MD [address] [place] [address] [place] [address] Consulting Physician Hematology and Oncology 03/11/22 Jameel Bloom DPM [address] [place], [place] [address] [address] Consulting Physician Orthotics 03/11/22 Gadiel Genao MD [address] [facility] [place] [address] Surgeon Vascular Surgery 03/11/22 Sepideh Hi RN [address] [place] [address] [address] [place] [address] Signal Intelligence Analyst 08/12/22 09/01/22 documented as of this encounter
--- OUTSIDE RECORDS SUMMARY | 2024-06-18 19:11 | XMS_ITS | Encounter Summary ---
Author Organization [facility] Medical Group Address [address] [place] [address] Care Team Providers Care Mail Distribution Scheme Examiner Name Role Phone Trey Pinedo MD Unavailable [phone] Christine Herzog MD Primary Care Provide r Albert Craft MD Unavailable [phone] Chintan Figueroa MD Unavailable [phone] Jameel Bloom DPM Unavailable [phone] Gadiel Genao MD Unavailable [phone] Sepideh Hi RN Unavailable [phone] Reason for Visit * Reason Onset Date Comments Covid-19 Home Monitoring 08/22/2022 Encounter Details Date Type Department Care Team (Late st Contact Info) Description 08/22/2022 Telephone [facility] Accountable Care Organization [address] [place] [address] Dunia Michaud, ELBERT [address] [place] [address] [facility] [address] [place] [address] Covid-19 Home Monitoring Social History Tobacco Use [...] you attend chur ch or latter-day services? Never 08/12/2022 Do you belong to [...] in a alf (including now)? 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 Male 6:00 PM PET STORE MERCHANDISER Gender Identity Not on file Sexual Orientation Straight 01/23/2021 10 :16 PM CDT documented as of this encounter Miscellaneous Notes * Telephone Encounter - Dunia Michaud MA - 08/22/2022 12:39 PM CST This patient is being disenrolled from the Perinatal Breastfeeding Assistant COVID-19 Home Monitoring program for the following [...] the home monitoring program, please contact . STORE MERCHANDISER documented in this encounter Plan of Treatment Not on file documented as of this encounter Goals Goal Patient Goal Type Associated Problems Recent Progress Patient-Stated? Author GULSHAN General Goal - Patient schedules and keeps appointments with all recommended providers ACO Care Management On track(2022 11:14 AM PET STORE MERCHANDISER) Sepideh Guo RN Note: Problem: Potential for [...] as of this encounter Care Teams Mail Distribution Scheme Examiner Relationship Specialty Start Date End Date Christine Herzog MD [address] [facility] [address] [place] [address] PCP - General Internal Medicine 12/02/21 Trey Pinedo MD [address] [place] [address] [address] [place] [address] Consulting Physician Neurology 05/09/19 Albert Craft MD [address] [place] [address] [address] [place] [address] Consulting Physician Gastroenterology 03/11/22 Chintan Figueroa MD [address] [place] [address] [address] [place] [address] Consulting Physician Hematology and Oncology 03/11/22 Jameel Bloom DPM [address] [place] [address] Consulting Physician Orthotics 03/11/22 Gadiel Genao MD [address] [place] [address] Surgeon Vascular Surgery 03/11/22 Sepideh Hi RN [address] [place] [address] [address] [place] [address] Barge Loader 08/12/22 09/01/22 documented as of this encounter
--- OUTSIDE RECORDS SUMMARY | 2024-06-18 19:11 | XMS_ITS | Encounter Summary ---
Author Organization [facility] Medical Group Address [address] [facility] [address] [place] [address] Care Team Providers Care Optical Engineer Name Role Phone Trey Pinedo MD Unavailable [phone] Christine Herzog MD Primary Care Provide r Albert Craft MD Unavailable [phone] Chintan Figueroa MD Unavailable [phone] Jameel Bloom DPM Unavailable [phone] Gadiel Genao MD Unavailable [phone] Sepideh Hi RN Unavailable Reason for Visit * Reason Onset Date Comments Additional Services Or Orders 08/15/2022 Medical Question/Miscellaneous 08/15/2022 Encounter Details Date Type Department Care Team (Late st Contact Info) Description 08/15/2022 Telephone [facility] Medical Group Primary Care at [address] [place] [address] Christine Herzog MD [address] [place] [address] [address] [place] [address] Additional Services Or Orders; Medical [...] slept in a long-term (including now)? 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 Male 6:00 PM BULLET SWAGING MACHINE ADJUSTER Gender Identity Not on file Sexual Orientation Straight 01/23/2021 10 :16 PM CDT documented as of this encounter Miscellaneous Notes * Telephone Encounter - Christine Herzog MD - 08/17/2022 12:47 PM BULLET SWAGING MACHINE ADJUSTER Sounds good ET SWAGING MACHINE ADJUSTER * Telephone Encounter - Lexii Lynn MA - 08/17/2022 12:17 PM CST Fyi: Regarding low HR. ET SWAGING MACHINE ADJUSTER * Telephone Encounter - Yanira Mar MA - 08/17/2022 12:06 PM CST Medical Question/Miscellaneous Caller???s Concern: Rosario from [facility] Home health is calling to let the doctor know that patient was not symptomatic, he was just sleepy and roused easily. She also states she was supposed to see patient tomorrow but is going to see if she can see him today. Caller???s Call back #: [phone] Does message need to be routed?Yes-FYI Only ET SWAGING MACHINE ADJUSTER * Telephone Encounter - Arianna Durham MA - 08/17/2022 10:00 AM BULLET SWAGING MACHINE ADJUSTER LMOM ET SWAGING MACHINE ADJUSTER * Telephone Encounter - Arianna Durham MA - 08/15/2022 3:05 PM BULLET SWAGING MACHINE ADJUSTER LMOM ET SWAGING MACHINE ADJUSTER * Telephone Encounter - Christine Herzog MD - 08/15/2022 2:53 PM BULLET SWAGING MACHINE ADJUSTER That is ok. Was pt symptomatic with low HR? ET SWAGING MACHINE ADJUSTER * Telephone Encounter - Martell Bucio - [...] name, address, phone/fax offacility): Caller's Callback #: [phone] Additional Comments:Caller states she opened patient for home care over weekend, patient's heart rate 54 over weekend., caller states patient has - two small wound areas. 1 scabbed and painful , the other is cratered. Is it okay to leave wounds open or cover with 4 x 4 if drainage occurs. Does message need to be routed?Yes-Action Needed ET SWAGING MACHINE ADJUSTER documented in this encounter Plan of Treatment Not on file documented as of this encounter Goals Goal Patient Goal Type Associated Problems Recent Progress Patient-Stated? Author GULSHAN General Goal - Patient schedules and keeps appointments with all recommended providers ACO Care Management On track(2022 11:14 AM BULLET SWAGING MACHINE ADJUSTER) Sepideh Guo, SUE Note: Problem: Potential for [...] eye protection or goggles. Precautions 08/16/22. Contact Research Biostatistician if patient worsens. SUE Baldwin 08/12/22 08/06/2022 08/06/2022 08/16/2022 3:[address] COVID: Recovered Comment:Added based on recent COVID infection. 08/16/2022 08/17/2022 11/14/2022 3:05 AM C DT documented as of this encounter Care Teams Optical Engineer Relationship Specialty Start Date End Date Christine Herzog MD [address] [facility] [address] [place] [address] PCP - General Internal Medicine 12/02/21 Trey Pinedo MD [address] [place] [address] [address] [place] [address] Consulting Physician Neurology 05/09/19 Albert Craft MD [address] [facility] [place] [address] Consulting Physician Gastroenterology 03/11/22 Chintan Figueroa MD [address] [facility] [place] [address] Consulting Physician Hematology and Oncology 03/11/22 Jameel Bloom DPM [address] [place] [address] [place] [address] Consulting Physician Orthotics 03/11/22 Gadiel Genao MD [address] [facility] [place] [address] Surgeon Vascular Surgery 03/11/22 Sepideh Hi RN [address] [place] [address] [address] [place] [address] Car Loader 08/12/22 09/01/22 documented as of this encounter
--- OUTSIDE RECORDS SUMMARY | 2024-06-18 19:11 | XMS_ITS | Encounter Summary ---
Author Organization [facility] Home Care Servic es Address [address] [place] [address] Phone Care Team Providers Care Flat Lock Machine Operator Name Role Phone Trey Pinedo MD Unavailable [phone] Christine Herzog MD Primary Care Provide r Albert Craft MD Unavailable [phone] Chintan Figueroa MD Unavailable [phone] Jameel Bloom DPM Unavailable [phone] Gadiel Genao MD Unavailable [phone] Sepideh Hi RN Unavailable [phone] Reason for Visit * Auth/Cert Specialty Diagnoses / Procedures Referred By Contac t Referred To Contact Referral ID Status Reason Start Date Expiration Date Visits Re quested Visits Authorized [id number] 1 1 Encounter Details Date Type Department Care Team (Late st Contact Info) Description 08/26/2022 11:30 AM BUSINESS INTEGRATION MANAGER Home Care Visit [facility] [address] [place] [address] Mary Santana, SUE SN HOME VISIT Social [...] you attend chur ch or worship services? Never 08/12/2022 Do you [...] in a correction (including now)? 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 Male 6:00 PM BUSINESS INTEGRATION MANAGER Gender Identity Not on file Sexual Orientation Straight 01/23/2021 10 :16 PM CDT documented as of this encounter Last Filed Vital Signs Vital Sign Reading Time Taken Comments Blood Pressure 120/70 08/26/2022 11:45 AM BUSINESS INTEGRATION MANAGER Pulse 58 08/26/2022 11:45 AM BUSINESS INTEGRATION MANAGER Temperature 36.5 ??C (97.7 ??F) 08/26/2022 11:[address] Respiratory Rate 18 08/26/2022 11:45 AM BUSINESS INTEGRATION MANAGER Oxygen Saturation 100% 08/26/2022 11:45 AM BUSINESS INTEGRATION MANAGER Inhaled Oxygen Concentration - - Weight [...] Plan for next visit - Discharge from snf discipline. Physical Therapy will continue to follow patient in the home NESS INTEGRATION MANAGER documented in this encounter Plan of Treatment Not on file documented as of this encounter Goals Goal Patient Goal Type Associated Problems Recent Progress Patient-Stated? Author GULSHAN General Goal - Patient schedules and keeps appointments with all recommended providers ACO Care Management On track(2022 11:14 AM BUSINESS INTEGRATION MANAGER) No Sepideh Hi RN Note: Problem: [...] Details Visit Type -SN Home Visit Discipline -Jail Problems Problem Description Start Date Status Goals Interve ntions Homebound Status Disciplines: Skilled Disciplines Patient's homebound status 08/13/2022 Active 1 goal linked to scheduled/documen kamala intervention 1 goal intervention scheduled/documen kamala in this visit Medications Disciplines: Jail Management of home medications 08/13/2022 Active 1 goal linked to scheduled/documen kamala intervention 2 goal interventions scheduled/documen kamala in this visit Monitor patient's vital signs every home health visit Disciplines: SN, PT, OT, WEB UI SOFTWARE ENGINEER, PRODUCT DEVELOPMENT CHEMIST, Skilled Disciplines Monitor patient's vital signs every [...] visit during episode of care Description: Home truck trailer final inspector to measure vital signs during every home [...] required documented in this encounter Care Teams Flat Lock Machine Operator Relationship Specialty Start Date End Date Christine Herzog MD [address] [place] [place] [address] [address] [place] [address] PCP - General Internal Medicine 12/02/21 Trey Pinedo MD [address] [place] [address] [address] [place] [address] Consulting Physician Neurology 05/09/19 Albert Craft MD [address] [place] [address] [address] [place] [address] Consulting Physician Gastroenterology 03/11/22 Chintan Figueroa MD [address] [place] [place] [address] [address] [place] [address] Consulting Physician Hematology and Oncology 03/11/22 Jameel Bloom DPM [address] [place] [address] Consulting Physician Orthotics 03/11/22 Gadiel Genao MD [address] [place] [address] Surgeon Vascular Surgery 03/11/22 Sepideh Hi RN [address] [place] [address] [address] [place] [address] Subassemblies Wirer 08/12/22 09/01/22 documented as of this encounter
--- OUTSIDE RECORDS SUMMARY | 2024-06-18 19:11 | XMS_ITS | Encounter Summary ---
Author Organization [facility] Home Care Servic es Address [address] [place] [address] Phone Care Team Providers Care Driver Helper Name Role Phone Trey Pinedo MD Unavailable [phone] Christine Herzog MD Primary Care Provide r Albert rCaft MD Unavailable [phone] Chintan Figueroa MD Unavailable [phone] Jameel Bloom DPM Unavailable [phone] Gadiel Genao MD Unavailable [phone] Encounter Details Date Type Department Care Team (Late st Contact Info) Description 08/11/2022 Telephone [facility] Home Care Services [address] [place] [address] Matteo Olea, RN Social History Tobacco Use [...] attend chur ch or latter day services? Never 08/12/2022 Do you belong to [...] place to sleep or slept in a prison (including now)? 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 Male 6:00 PM SITE SAFETY 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 Gender Identity Not on file Sexual Orientation Straight 01/23/2021 10 :16 PM CDT documented as of this encounter Miscellaneous Notes * Telephone Encounter - Matteo Olea, RN - 08/11/2022 1:42 PM SITE SAFETY 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 A secure Spiration chat was sent to Dr. Christine Herzog (PCP). I informed PCP that patient's projected [facility] HH SOC will be within 48 hours of discharge. I requested confirmation that he will followfor HH orders/needs and received confirmation that they will follow for home health needs and orders per secure chat on 08/11 @ 1316. SAFETY 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 documented in this encounter Plan of Treatment Not on file documented as of this encounter Visit Diagnoses Not on filedocumented in this encounter Additional Health Concerns Infection Onset Date Last Indicated Resolved Time COVID19 Comment:Airborne + Contact precautions. Gown, Gloves, N95, eye protection or goggles. Precautions 08/16/22. Contact Aviation Warfare Systems Operator if patient worsens. SUE Baldwin 08/12/22 08/06/2022 08/06/2022 08/16/2022 3:[address] Coronavirus, contact + dropl et Comment:Negative for coronavirus 08/06/2022 08/06/2022 023 12:29 PM SITE SAFETY 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 documented as of this encounter Care Teams Driver Helper Relationship Specialty Start Date End Date Christine Herzog MD [address] [facility] [address] [place] [address] PCP - General Internal Medicine 12/02/21 Trey Pinedo MD [address] [facility] [address] [place] [address] Consulting Physician Neurology 05/09/19 Albert Craft MD [address] [place] [address] Consulting Physician Gastroenterology 03/11/22 Chintan Figueroa MD [address] [place] [address] [address] Consulting Physician Hematology and Oncology 03/11/22 Jameel Bloom DPM [address] [place] [address] Consulting Physician Orthotics 03/11/22 Gadiel Genao MD [address] [place] [address] Surgeon Vascular Surgery 03/11/22 documented as of this encounter
--- OUTSIDE RECORDS SUMMARY | 2024-06-18 19:11 | XMS_ITS | Encounter Summary ---
Author Organization [facility] Medical Group Address [address] [facility] [address] [place] [address] Care Team Providers Care Client Services Assistant Name Role Phone Trey Pinedo MD Unavailable [phone] Christine Herzog MD Primary Care Provide r Albert Craft MD Unavailable [phone] Chintan Figueroa MD Unavailable [phone] Jameel Bloom DPM Unavailable [phone] Gadiel Genao MD Unavailable Sepideh Hi RN Unavailable Reason for Visit * Reason Onset Date Comments Covid-19 Home Monitoring 08/21/2022 Encounter Details Date Type Department Care Team (Late st Contact Info) Description 08/21/2022 Telephone [facility] Accountable Care Organization [address] [place] [address] Lexii Ahumada LPN [address] [place] [address] [address] [place] [address] Covid-19 Home Monitoring Social History Tobacco Use [...] any clubs o r organizations such as voodoo groups, unions, fraternal or athletic groups, or [...] on file Legal Sex Male 6:00 PM PERMACULTURE DESIGNER Gender Identity Not on file Sexual Orientation Straight 01/23/2021 10 :16 PM CDT documented as of this encounter Miscellaneous Notes * Telephone Encounter - Lexii Pino LPN - 08/21/2022 3:32 PM PERMACULTURE DESIGNER This patient is enrolled in the COVID-19 Home Monitoring Program and had not responded to the dailysymptom questionnaire. Telephonic outreach attempted to assess patient???s symptoms. Home Monitoring symptom questionnaire was not completed today, because the patient declined to answer the questionnaire. Symptom Questionnaire to be completed by patient tomorrow. Pt's son stated he would go into [employer] and fill out the survey ACULTURE DESIGNER documented in this encounter Plan of Treatment Not on file documented as of this encounter Goals Goal Patient Goal Type Associated Problems Recent Progress Patient-Stated? Author GULSHAN General Goal - Patient schedules and keeps appointments with all recommended providers ACO Care Management On track(2022 11:14 AM PERMACULTURE DESIGNER) Sepideh Guo RN Note: Problem: Potential [...] documented as of this encounter Care Teams Client Services Assistant Relationship Specialty Start Date End Date Christine Herzog MD [address] [facility] [address] [place] [address] PCP - General Internal Medicine 12/02/21 Trey Pinedo MD [address] [place] [address] [address] [place] [address] Consulting Physician Neurology 05/09/19 Albert Craft MD [address] [facility] [address] [place] [address] Consulting Physician Gastroenterology 03/11/22 Chintan Figueroa MD [address] [facility] [address] [place] [address] Consulting Physician Hematology and Oncology 03/11/22 Jameel Bloom DPM [address] [place] [address] Consulting Physician Orthotics 03/11/22 Gadiel Genao MD [address] [place] [address] Surgeon Vascular Surgery 03/11/22 Sepideh Hi RN [address] [place] [address] [address] [place] [address] Claim Administrator 08/12/22 09/01/22 documented as of this encounter
--- OUTSIDE RECORDS SUMMARY | 2024-06-18 19:11 | XMS_ITS | Encounter Summary ---
Author Organization [facility] Home Care Servic es Address [address] [place] [address] Phone Care Team Providers Care Trailer Technician Name Role Phone Trey Pinedo MD Unavailable [phone] Christine Herzog MD Primary Care Provide r Albert Craft MD Unavailable [phone] Chintan Figueroa MD Unavailable [phone] Jameel Bloom DPM Unavailable [phone] Gadiel Genao MD Unavailable [phone] Sepideh Hi RN Unavailable [phone] Encounter Details Date Type Department Care Team (Late st Contact Info) Description 08/13/2022 Plan of Care Documentation [facility] Home Health - [address] [place] [address] Social History Tobacco Use Types [...] in a long term (including now)? 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 Male 6:00 PM REFERENCE LIBRARIAN Gender Identity Not on file Sexual Orientation Straight 01/23/2021 10 :16 PM CDT documented as of this encounter Plan of Treatment Not on file documented as of this encounter Goals Goal Patient Goal Type Associated Problems Recent Progress Patient-Stated? Author GULSHAN General Goal - Patient schedules and keeps appointments with all recommended providers ACO Care Management On track(2022 11:14 AM REFERENCE LIBRARIAN) Sepideh Guo RN Note: Problem: Potential for [...] eye protection or goggles. Precautions 08/16/22. Contact Messenger Floorperson if patient worsens. SUE Baldwin 08/12/22 08/06/2022 08/06/2022 08/16/2022 3:[address] documented as of this encounter Care Teams Trailer Technician Relationship Specialty Start Date End Date Christine Herzog MD [address] [facility] [address] [place] [address] PCP - General Internal Medicine 12/02/21 Trey Pinedo MD [address] [facility] [address] [place] [address] Consulting Physician Neurology 05/09/19 Albert Craft MD [address] [facility] [place] [address] Consulting Physician Gastroenterology 03/11/22 Chintan Figueroa MD [address] [place] [address] [address] [place] [address] Consulting Physician Hematology and Oncology 03/11/22 Jameel Bloom DPM [address] [place] [address] Consulting Physician Orthotics 03/11/22 Gadiel Genao MD [address] [place] [address] Surgeon Vascular Surgery 03/11/22 Sepideh Hi RN [address] [place] [address] [address] [place] [address] Bulking Machine Operator 08/12/22 09/01/22 documented as of this encounter
--- OUTSIDE RECORDS SUMMARY | 2024-06-18 19:11 | XMS_ITS | Encounter Summary ---
Author Organization [facility] Address [address] [place] [address] Phone Care Team Providers Care Audit Consultant Name Role Phone Trey Pinedo MD Unavailable [phone] Christine Herzog MD Primary Care Provide r Albert Craft MD Unavailable [phone] Chintan Figueroa MD Unavailable [phone] Jameel Bloom DPM Unavailable [phone] Gadiel Genao MD Unavailable [phone] Sepideh Hi RN Unavailable [phone] Reason for Visit * Reason Comments Weakness - Generalized * Auth/Cert Specialty Diagnoses / Procedures Referred By Contac t Referred To Contact Referral ID Status Reason Start Date Expiration Date Visits Re quested Visits Authorized [id number] 1 1 Encounter Details Date Type Department Care Team (Late st Contact Info) Description 08/23/2022 9:00 AM PRODUCTION POTTER Home Care Visit [facility] - [address] [place] [address] Marianne Zhang, SAUL PT HOME VISIT Social [...] you attend chur ch or hoahaoism services? Never 08/12/2022 Do you belong to [...] No 08/12/2022 Housing Stability Vital Sign Answer Marni e Recorded In the last 12 months, [...] on file Legal Sex Male 6:00 PM PRODUCTION POTTER Gender Identity Not on file Sexual Orientation Straight 01/23/2021 10 :16 PM CDT documented as of this encounter Last Filed Vital Signs Vital Sign Reading Time Taken Comments Blood Pressure 110/60 08/23/2022 9:46 AM PRODUCTION POTTER Pulse 50 08/23/2022 9:46 AM PRODUCTION POTTER Temperature 35.1 ??C (95.2 ??F) 08/23/2022 9:46 AM CS T Respiratory Rate 18 08/23/2022 9:46 AM PRODUCTION POTTER Oxygen Saturation 96% 08/23/2022 9:46 AM PRODUCTION POTTER Inhaled Oxygen Concentration - - Weight - [...] heart rate at rest and with activity UCTION POTTER documented in this encounter Plan of Treatment Not on file documented as of this encounter Goals Goal Patient Goal Type Associated Problems Recent Progress Patient-Stated? Author GULSHAN General Goal - Patient schedules and keeps appointments with all recommended providers ACO Care Management On track(2022 11:14 AM PRODUCTION POTTER) Sepideh Guo, SUE Note: Problem: Potential for [...] home health visit Disciplines: SN, PT, OT, NEPHROLOGIST, TYPE CASTING MACHINE OPERATOR, Skilled Disciplines Monitor patient's vital signs [...] visit during episode of care Description: Home loan documentation specialist to measure vital signs during every home [...] comments documented in this encounter Care Teams Audit Consultant Relationship Specialty Start Date End Date Christine Herzog MD [address] [facility] [address] [place] [address] PCP - General Internal Medicine 12/02/21 Trey Pinedo MD [address] [place] [address] [address] [place] [address] Consulting Physician Neurology 05/09/19 Albert Craft MD [address] [facility] [address] [place] [address] Consulting Physician Gastroenterology 03/11/22 Chintan Figueroa MD [address] [place] [address] [address] [place] [address] Consulting Physician Hematology and Oncology 03/11/22 Jameel Bloom DPM [address] [place] [address] Consulting Physician Orthotics 03/11/22 Gadiel Genao MD [address] [place] [address] Surgeon Vascular Surgery 03/11/22 Sepideh Hi RN [address] [place] [address] [address] [place] [address] Grain Unloader 08/12/22 09/01/22 documented as of this encounter
--- OUTSIDE RECORDS SUMMARY | 2024-06-18 19:11 | XMS_ITS | Encounter Summary ---
Author Organization [facility] Address [address] [place] [address] Phone Care Team Providers Care Seedling Puller Name Role Phone Trey Pinedo MD Unavailable [phone] Christine Hezrog MD Primary Care Provide r Albert Craft MD Unavailable [phone] Chintan Figueroa MD Unavailable [phone] Jameel Bloom DPM Unavailable [phone] Gadiel Genao MD Unavailable [phone] Sepideh Hi RN Unavailable [phone] Reason for Visit * Auth/Cert Specialty Diagnoses / Procedures Referred By Contac t Referred To Contact Referral ID Status Reason Start Date Expiration Date Visits Re quested Visits Authorized [id number] 1 1 Encounter Details Date Type Department Care Team (Late st Contact Info) Description 08/23/2022 1:30 PM AMMONIA PRINT OPERATOR Home Care Visit [facility] [address] [place] [address] Mary Santana, SUE SN HOME VISIT Social [...] you attend chur ch or tenriism services? Never 08/12/2022 Do you belong to [...] on file Legal Sex Male 6:00 PM AMMONIA PRINT OPERATOR Gender Identity Not on file Sexual Orientation Straight 01/23/2021 10 :16 PM CDT documented as of this encounter Last Filed Vital Signs Vital Sign Reading Time Taken Comments Blood Pressure 122/64 08/23/2022 1:59 PM AMMONIA PRINT OPERATOR Pulse 60 08/23/2022 1:59 PM AMMONIA PRINT OPERATOR Temperature 36.7 ??C (98.1 ??F) 08/23/2022 1:59 PM CS T Respiratory Rate 18 08/23/2022 1:59 PM AMMONIA PRINT OPERATOR Oxygen Saturation 100% 08/23/2022 1:59 PM AMMONIA PRINT OPERATOR Inhaled Oxygen Concentration - - Weight - - Height - - Body Mass Index - - documented in this encounter Plan of Treatment Not on file documented as of this encounter Goals Goal Patient Goal Type Associated Problems Recent Progress Patient-Stated? Author GULSHAN General Goal - Patient schedules and keeps appointments with all recommended providers ACO Care Management On track(2022 11:14 AM AMMONIA PRINT OPERATOR) No Sepideh Hi RN Note: Problem: [...] home health visit Disciplines: SN, PT, OT, MOLD FILLER AND DRAINER, RATING OFFICER, Skilled Disciplines Monitor patient's vital signs every [...] visit during episode of care Description: Home pre billing clinician to measure vital signs during every [...] required documented in this encounter Care Teams Seedling Puller Relationship Specialty Start Date End Date Christine Herzog MD [address] [facility] [address] [place] [address] PCP - General Internal Medicine 12/02/21 Trey Pinedo MD [address] [facility] [address] [place] [address] Consulting Physician Neurology 05/09/19 Albert Craft MD [address] [facility] [address] [place] [address] Consulting Physician Gastroenterology 03/11/22 Chintan Figueroa MD [address] [place] [address] [address] [place] [address] Consulting Physician Hematology and Oncology 03/11/22 Jameel Bloom DPM [address] [place] [address] Consulting Physician Orthotics 03/11/22 Gadiel Genao MD [address] [place] [address] Surgeon Vascular Surgery 03/11/22 Sepideh Hi RN [address] [place] [address] [address] [place] [address] Netting Weaver 08/12/22 09/01/22 documented as of this encounter
--- OUTSIDE RECORDS SUMMARY | 2024-06-18 19:11 | XMS_ITS | Encounter Summary ---
Author Organization [facility] Home Care [facility] es Address [address] [place] [address] Phone Care Team Providers Care Remote Sensing Technician Name Role Phone Trey Pinedo MD Unavailable [phone] Christine Herzog MD Primary Care Provide r Albert Craft MD Unavailable [phone] Chintan Figueroa MD Unavailable [phone] Jameel Bloom DPM Unavailable [phone] Gadiel Genao MD Unavailable [phone] Sepideh Hi RN Unavailable [phone] Reason for Visit * Auth/Cert Specialty Diagnoses / Procedures Referred By Contac t Referred To Contact Referral ID Status Reason Start Date Expiration Date Visits Re quested Visits Authorized [id number] 1 1 Encounter Details Date Type Department Care Team (Late st Contact Info) Description 08/17/2022 4:00 PM PAINT STOCKMAN Home Care Visit [facility] [address] [place] [address] Rosario Rowland, SUE SN HOME VISIT Social [...] on file Legal Sex Male 6:00 PM PAINT STOCKMAN Gender Identity Not on file Sexual Orientation Straight 01/23/2021 10 :16 PM CDT documented as of this encounter Last Filed Vital Signs Vital Sign Reading Time Taken Comments Blood Pressure 138/78 08/17/2022 3:02 PM PAINT STOCKMAN Pulse 78 08/17/2022 3:02 PM PAINT STOCKMAN Temperature 36.6 ??C (97.8 ??F) 08/17/2022 3:02 PM CS T Respiratory Rate 18 08/17/2022 3:02 PM PAINT STOCKMAN Oxygen Saturation 98% 08/17/2022 3:02 PM PAINT STOCKMAN Inhaled Oxygen Concentration - - Weight - - Height - - Body Mass Index - - documented in this encounter Plan of Treatment Not on file documented as of this encounter Goals Goal Patient Goal Type Associated Problems Recent Progress Patient-Stated? Author GULSHAN General Goal - Patient schedules and keeps appointments with all recommended providers ACO Care Management On track(2022 11:14 AM PAINT STOCKMAN) No Sepideh Hi, SUE Note: Problem: Potential [...] Details Visit Type -SN Home Visit Discipline -Prison Problems Problem Description Start Date Status Goals Interve ntions Homebound Status Disciplines: Skilled Disciplines Patient's homebound status 08/13/2022 Active 1 goal linked to scheduled/documen kamala intervention 1 goal intervention scheduled/documen kamala in this visit Medications Disciplines: Prison Management of home medications 08/13/2022 Active 1 goal linked to scheduled/documen kamala intervention 1 goal intervention scheduled/documen kamala in this visit Monitor patient's vital signs every home health visit Disciplines: SN, PT, OT, SOUND PERSON, TAX CREDIT LEASING CONSULTANT, Skilled Disciplines Monitor patient's vital signs every [...] visit during episode of care Description: Home fishing guide to measure vital signs during every home [...] Scheduled documented in this encounter Care Teams Remote Sensing Technician Relationship Specialty Start Date End Date Christine Herzog MD [address] [facility] [address] [place] [address] PCP - General Internal Medicine 12/02/21 Trey Pinedo MD [address] [place] [address] [address] [place] [address] Consulting Physician Neurology 05/09/19 Albert Craft MD [address] [facility] [address] [place] [address] Consulting Physician Gastroenterology 03/11/22 Chintan Figueroa MD [address] [place] [address] [address] [place] [address] Consulting Physician Hematology and Oncology 03/11/22 Jameel Bloom DPM [address] [place] [address] Consulting Physician Orthotics 03/11/22 Gadiel Genao MD [address] [place] [address] Surgeon Vascular Surgery 03/11/22 Sepideh Hi RN [address] [place] [address] [address] [place] [address] Electric Container Tester 08/12/22 09/01/22 documented as of this encounter
--- OUTSIDE RECORDS SUMMARY | 2024-06-18 19:11 | XMS_ITS | Encounter Summary ---
Author Organization [facility] Healthcare Address [address] [place] [address] Care Team Providers Care Lock Up Worker Name Role Phone Trey Pinedo MD Unavailable [phone] Christine Herzog MD Primary Care Provide r Albert Craft MD Unavailable [phone] Chintan Figueroa MD Unavailable [phone] Jameel Bloom DPM Unavailable [phone] Gadiel Genao MD Unavailable [phone] Reason for Visit * Reason Comments Phlebotomy Encounter Details Date Type Department Care Team (Late st Contact Info) Description 07/08/2022 3:30 PM QUALITY ASSURANCE PROJECT MANAGER Infusion [facility] [address] [facility] [address] [place] [address] Polycythemia (Primary Dx) Social History Tobacco Use [...] file Legal Sex Male 6:00 PM QUALITY ASSURANCE PROJECT MANAGER Gender Identity Not on file Sexual Orientation Straight 01/23/2021 10 :16 PM CDT documented as of this encounter Last Filed Vital Signs Vital Sign Reading Time Taken Comments Blood Pressure 146/61 07/08/2022 2:49 PM QUALITY ASSURANCE PROJECT MANAGER Pulse 58 07/08/2022 2:49 PM QUALITY ASSURANCE PROJECT MANAGER Temperature 36.6 ??C (97.9 ??F) 07/08/2022 2:49 PM CS T Respiratory Rate 20 07/08/2022 2:16 PM QUALITY ASSURANCE PROJECT MANAGER Oxygen Saturation 97% 07/08/2022 2:49 PM QUALITY ASSURANCE PROJECT MANAGER Inhaled Oxygen Concentration - - Weight [...] after observation and left in stable condition. ITY ASSURANCE PROJECT MANAGER documented in this encounter Plan of [...] 07/08/2022 documented in this encounter Care Teams Lock Up Worker Relationship Specialty Start Date End Date Christine Herzog MD [address] [facility] [address] [place] [address] PCP - General Internal Medicine 12/02/21 Trey Pinedo MD [address] [place] [address] [address] [place] [address] Consulting Physician Neurology 05/09/19 Albert Craft MD [address] [facility] [place] [address] Consulting Physician Gastroenterology 03/11/22 Chintan Figueroa MD [address] [facility] [place] [address] Consulting Physician Hematology and Oncology 03/11/22 Jameel Bloom DPM [address] [facility] [place] [address] Consulting Physician Orthotics 03/11/22 Gadiel Genao MD [address] [place] [address] Surgeon Vascular Surgery 03/11/22 documented as of this encounter
--- OUTSIDE RECORDS SUMMARY | 2024-06-18 19:11 | XMS_ITS | Encounter Summary ---
Author Organization [facility] Healthcare Address [address] [place] [address] Care Team Providers Care Project Inspector Name Role Phone Trey Pinedo MD Unavailable [phone] Christine Herzog MD Primary Care Provide r Albert Craft MD Unavailable [phone] Chintan Figueroa MD Unavailable [phone] Jameel Bloom DPM Unavailable [phone] Gadiel Genao MD Unavailable [phone] Reason for Referral * MRI/CAT/PET Scan (Routine) - Closed Specialty Diagnoses / Procedures Referred By Contac t Referred To Contact Radiology Diagnoses Carotid artery disease (HCC) PVD (peripheral vascular disease) (HCC) Procedures CTA Head Neck W WO Contrast Gadiel Genao MD Phone: tel: fax: [address] [phone] Referral ID Status Reason Start Date Expiration Date Visits Re quested Visits Authorized [id number] Closed 05/25/2021 06/24/2022 1 1 R OUT Reason for Visit * MRI/CAT/PET Scan (Routine) - Closed Specialty Diagnoses / Procedures Referred By Contac t Referred To Contact Radiology Diagnoses Carotid artery disease (HCC) PVD (peripheral vascular disease) (HCC) Procedures CTA Head Neck W WO Contrast Gadiel Genao MD Phone: tel: fax: [address] [phone] Referral ID Status Reason Start Date Expiration Date Visits Re quested Visits Authorized [id number] Closed 05/25/2021 06/24/2022 1 1 Encounter Details Date Type Department Care Team (Latest Contact Info) Description 07/12/2022 12:29 PM LAYER OUT - 07/12/2022 11:59 PM LAYER OUT Hospital Encounter [facility] [address] [place], [place] [id number] Gadiel Genao MD [address] [facility] [id number] [place] [address] Carotid artery disease (CMS/HCC) (HCC); [...] on file Legal Sex Male 6:00 PM LAYER OUT Gender Identity Not on file Sexual Orientation [...] Read Routine (OP Routine) 07/12/2022 1:44 PM LAYER OUT Carotid artery disease (CMS/HCC) (HCC) PVD (peripheral vascular disease) (CMS/HCC) (HCC) POCT CREATININE - DEVICE Routine 07/12/2022 1:07 PM LAYER OUT documented in this encounter Results * CTA Head Neck W WO Contrast (07/12/2022 1:44 PM LAYER OUT) Anatomical Region Laterality Modality Head and Neck N/A Computed Tomogra phy 07/12/2022 3:06 PM LAYER OUT Impressions 07/12/2022 4:43 PM LAYER OUT 1. ??No acute intracranial findings. 2. ??Unchanged [...] Simon Redd M.D. Narrative 07/12/2022 4:43 PM LAYER OUT EXAMINATION: Computed tomography angiography (CTA) of the [...] airway is widely patent. Angiographic findings: The abiziu-ir-Wswljs is complete. The left vertebral artery is [...] airway is widely patent. Angiographic findings: The otzvpb-lo-Nvlgxa is complete. The left vertebral artery is [...] sult * POCT creatinine (07/12/2022 1:07 PM LAYER OUT) Creatinine POC 1.2 0.7 - 1.3 mg/dL [facility] Blood 07/12/2022 1:07 PM LAYER OUT 07/12/2022 1:07 PM LAYER OUT Wesley Em MD LAB POCT ORDERABLES - DEVICE F inal Result [facility] [place] [address] documented in this encounter Visit Diagnoses Diagnosis [...] 1 dose Contrast Given 07/12/2022 1:45 PM LAYER OUT 84 mL documented in this encounter Orders Medications Ordered That Reg ht Not Have Been Administered Count Last Ordered Date First Ordered Date ioversoL (OPTIRAY 350) injection 100 mL 1 0 07/12/2022 documented in this encounter Care Teams Project Inspector Relationship Specialty Start Date End Date Christine Herzog MD [address] [place] [address] [address] [place] [address] PCP - General Internal Medicine 12/02/21 Trey Pinedo MD [address] [place] [address] [address] [place] [address] Consulting Physician Neurology 05/09/19 Albert Craft MD [address] [facility] [address] [place] [address] Consulting Physician Gastroenterology 03/11/22 Chintan Figueroa MD [address] [facility] [address] [place] [address] Consulting Physician Hematology and Oncology 03/11/22 Jameel Bloom DPM [address] [place] [address] Consulting Physician Orthotics 03/11/22 Gadiel Genao MD [address] [place] [address] Surgeon Vascular Surgery 03/11/22 documented as of this encounter
--- OUTSIDE RECORDS SUMMARY | 2024-06-18 19:11 | XMS_ITS | Encounter Summary ---
Author Organization [facility] Healthcare Address [address] [place] [address] Care Team Providers Care Hook And Eye Sewing Machine Operator Name Role Phone Trey Pinedo MD Unavailable [phone] Christine Herzog MD Primary Care Provide r Albert Craft MD Unavailable [phone] Chintan Figueroa MD Unavailable [phone] Jameel Bloom DPM Unavailable [phone] Gadiel Genao MD Unavailable [phone] Reason for Visit * Reason Comments Low Heart Rate * Auth/Cert Specialty Diagnoses / Procedures Referred By Contac t Referred To Contact Diagnoses Bradycardia COVID-19 Procedures ADM Referral ID Status Reason Start Date Expiration Date Visits Re quested Visits Authorized [id number] 1 1 Encounter Details Date Type Department Care Team (Latest Contact Info) Description 08/06/2022 12:16 AM FARM CONTRACTOR - 08/11/2022 12:50 PM FARM CONTRACTOR Hospital Encounter [facility] 2 ICU [address] [place] [address] Mario Small, DO [address] [place] [address] Wilfredo Jean-Baptiste MD [address] [place] [address] Stalin Means MD [facility] [place] [address] Hi Bravo MD [address] [place] [address] Bradycardia (Primary Dx); COVID-19; Closed fracture of one rib of right side, initial encounter; Essential hypertension; 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 Never 08/12/2022 Do you belong to [...] on file Legal Sex Male 6:00 PM FARM CONTRACTOR Gender Identity Not on file Sexual Orientation Straight 01/23/2021 10 :16 PM CDT documented as of this encounter Last Filed Vital Signs Vital Sign Reading Time Taken Comments Blood Pressure 171/90 08/11/2022 8:00 AM FARM CONTRACTOR Pulse 51 08/11/2022 8:00 AM FARM CONTRACTOR Temperature 36.4 ??C (97.6 ??F) 08/11/2022 8:00 AM CS T Respiratory Rate 13 08/11/2022 8:00 AM FARM CONTRACTOR Oxygen Saturation 94% 08/11/2022 8:00 AM FARM CONTRACTOR Inhaled Oxygen Concentration - - Weight 67.4 kg (148 lb 9.4 oz) 08/06/2022 5:37 A M FARM CONTRACTOR Height 170.2 cm (5' 7.01 ) 08/06/2022 5:37 AM CS T Body Mass Index 23.27 08/06/2022 5:37 AM FARM CONTRACTOR documented in this encounter Discharge Summaries * Hi Bravo MD - 08/11/2022 10:33 AM CST Inpatient Discharge Summary Patient Name - Verna Zuniga Patient Age - 76 yrs Patient - [id number] [facility] - [id number] Document Creation Date: 08/11/2022 Admitting Provider, : Wilfredo Jean-Baptiste MD Discharge Provider, MD: Blanca att. providers found Primary Care Physician at Discharge: Christine Herzog MD [phone] Admission Date: 08/06/2022 Discharge Date/time: 08/11/2022 Admission Location: [facility] LOS - LOS: 5 days DETAILS OF [...] Your Medications These medications were sent to [id number] - [place], [place] - [facility] [address] [place] [address], [facility] [id number] amLODIPine 2.5 mg tablet apixaban 5 mg [...] CANCER CTR LAB 1 [facility] Medical 09/08/2022 1:00 PM [facility] INFUSION CTR-CHAIR 2 [facility] Medical 09/19/2022 10:00 AM Bucky Hayes MD [facility] 6C NL 2022 3:45 PM Christine Herzog MD [facility] 220 PC 10/25/2022 1:00 PM [facility] CANCER [facility] LAB 1 [facility] Medical 10/25/2022 1:30 PM Monika Castellano, ARABIC LINGUIST ONC [facility] B134 [facility] Oncology 10/25/2022 2:00 PM [facility] INFUSION CTR-CHAIR 1 [facility] Medical 03/16/2023 4:00 PM Christine Herzog MD [facility] PC Contact Information for Follow-ups Ross Galindo MD Specialty: Interventional Cardiology, Cardiovascular Disease, Nuclear Medicine, Internal Medicine [address] [place] [id number] Next Steps: Follow up in 2 week(s) [facility] Cardiology Specialty: Cardiology [address] [place] [phone] Next Steps: Follow up Christine Herzog MD Specialty: Family Medicine Relationship: PCP - General [address] [place] [id number] Next Steps: Follow up in 1 week(s) [facility] Home Care Services Specialty: Home Health and Hospice [address] [facility] [address] Next Steps: Follow up Questions: Service Line: Home Health Primary disciplines requested: Detention Physical Therapy Secondary disciplines requested: Occupational Therapy [...] with the following provider(s): [place] [address] [place] [address] [place] [id number] Follow up in 2 week(s) [facility] Cardiology [address] [facility] [address] [place] [phone] Christine Herzog MD [address] [place] [address] Follow up in 1 week(s) [facility] Home Care Services [address] [facility] [address] ANCILLARY INFORMATION Other Procedures & Diagnostic Tests: [...] signed by Shamar MARIN T: Report ID: [id number] Reading Location: [id number] Transthoracic Echo (TTE) Limited/Followup Result Date: 08/06/2022 Adult Echocardiogram + + :Name: VERNA ZUNIGA Study Date: 08/06/2022 Status: [facility] : : Patient Location: [address]^[id number]^Height: 67 in : : Weight: 148 lbBP: [...] mg/dL 1.10 1.60* 1.20 < > 1.20 [id number] mL/min/1.73 m2 70 45 63 < > [...] insulin Diet effective now Question Answer Comment (MHB/MHE/[facility]) Diet type Restricted Fat / Sodium Restriction: [...] Service Line: Home Health Primary disciplines requested: Detention Physical Therapy Secondary disciplines requested: Occupational Therapy [...] 06/29/2021, 09/06/2021 Tdap 12/19/2007 Hi Barrett MD CONTRACTOR documented in this encounter Medications at Time [...] plans to return home with support from [facility] and [facility]. List of in network home healthcare companies provided and patients preferences addressed. [facility] [address] [place] [phone] Above [facility] has accepted patient. With plan for start of care on . Pt/family aware. [facility] info added to AVS. Bedside RN to fax order and AVS to above fax number at d/c. Transportation has been arranged with son. Putty And Caulking Supervisor to remain available to assist as needed. Jasmin Rodarte RN 08/11/2022 1:50 PM CONTRACTOR * sIaura King, RESIDENT CARE ASSISTANT - 08/11/2022 11:14 AM CST Physical Therapy [...] to cardiac chair Recommendation/Plan PT Recommendation/Plan (S) Detention Facility Patient at high risk for Falls;Injury [...] posted at bedside and within medical record. CONTRACTOR * Darshana Adam OT - 08/11/2022 9:38 AM CST Occupational Therapy 08/11/22 0946 General Chart Reviewed Yes Session Type Evaluation [...] Consider this discharge summary Recommendation/Plan OT Recommendation Detention Facility Patient at high risk for Falls;Readmission;Injury [...] task with G balance, decreased fall risk. CONTRACTOR * Jennifer Perez - 08/11/2022 9:37 AM CST 08/11/22 0900 Time Spent Start Time 0915 Patient Spiritual Assessment Spirituality Assessed Yes Faith Affiliation None Clinical Encounter Type Visited With Patient Interventions Interventions Active listening Pt does not practice a shady tradition and has no spiritual needs at this time. CONTRACTOR * Jasmin Rodarte RN - 08/10/2022 3:33 PM CST Spoke to patient this afternoon regarding PT and MD recommendation for SNF. Patient stated I just want to go home . I also discussed possible Home Health with PT and patient stated I don't think Ineed that. I just want to go home. CONTRACTOR * Araceli Noriega MSW - 08/10/2022 3:31 PM CST [employer] received call from pt's son. Son reports [...] and speak with pt's son. Voicemail left. [employer] preemptively sent out bulk of SN[facility] referrals [facility]. PASRR completed. ID: [id number]. DEANGELO Haines 08/10/2022 3:32 PM CONTRACTOR CONTRACTOR * Arnold Le, Hi Palomares MD - [...] lower lung, no wheezing or rhonchi Heart:bradycardia [id number], no significant murmur or gallop Abd: +BS, [...] tablet 5 mg 5 mg oral Q12H [facility] Ross Galindo MD 5 mg at 08/10/22 0911 aspirin enteric coated tablet 81 mg 81 mg oral Daily Wilfredo Jean-Baptiste MD 81 mg at 08/10/22 0912 atorvastatin (LIPITOR) tablet 40 mg 40 mg oral Daily Wilfredo Jean-Baptiste MD 40 mg at 08/10/22 0911 cefepime (MAXIPIME) 1,000 mg in sodium chloride 0.9% 100 mL IVPB 1,000 mg intravenous Q8H [facility] Stalin Means MD 200 mL/hr at 08/10/22 [...] patient Case discussed with Case Management and Mass Spec My total encounter time on 08/10/2022 was 36 minutes which was spent in the activities documented in the note. This includes the time spent prior to the visit and after the visit in direct care of the patient. This time does not include the time spent in any separately reportable services. Voice recognition software MedLink Direct may have been used dictate and transcribe this document. Hospice Admitting Clerk variances may occur. Despite proofreading, typographical errors may occur. Hi Barrett MD 08/10/2022 1:20 PM CONTRACTOR * Zee Islas, RESIDENT CARE ASSISTANT - 08/10/2022 10:54 AM CST Physical Therapy [...] all needs met. Recommendation/Plan PT Recommendation/Plan (S) Detention Facility PT Equipment Recommended (S) Wheeled walker [...] By Jose De Jesus Rogel, RN 08/09/22 0109 Jose De Jesus Rogel, SUE 08/09/22 0017 [...] posted at bedside and within medical record. CONTRACTOR * Hi Bravo MD - 08/09/2022 1:23 [...] lower lung, no wheezing or rhonchi Heart:bradycardia [id number], no significant murmur or gallop Abd: +BS, [...] tablet 975 mg 975 mg oral Q8H [facility] Nga Parish, ARABIC LINGUIST 975 mg at 08/09/22 0539 albuterol HFA [...] 100 mL IVPB 1,000 mg intravenous Q8H [facility] Stalin Means MD 200 mL/hr at 08/09/22 [...] patient Case discussed with Case Management and Mass Spec Medical complexity/risk: Low complexity Voice recognition software MModal Fluency Direct may have been used dictate and transcribe this document. Hospice Admitting Clerk variances may occur. Despite proofreading, typographical errors may occur. Hi Barrett MD 08/09/2022 1:24 PM CONTRACTOR * Jasmin Rodarte RN - 08/09/2022 10:50 [...] 0945) Jasmin Rodarte RN 08/09/2022 2:37 PM CONTRACTOR * Jadon Archuleta, PT - 08/09/2022 9:48 [...] assessed for early signs of dementia. Per CANCER RESEARCHER (Dottie), [place] for P.T., as toñito.. Family/Caregiver [...] to be verified. Prior Function Level of Bibb Independent with ADLs;Independent functional transfers;Independent with ambulation;Needs [...] of care initiated Recommendation/Plan PT Recommendation/Plan (S) Detention Facility;Other Patient at high risk for Falls;Readmission;Injury [...] within reach, and personal items within reach. CANCER RESEARCHER (Dottie) made aware. Mobility and ADL status posted within medical record. CONTRACTOR * Mark Roque, [facility] - 08/08/2022 9:52 PM CST Vancomycin Pharmacokinetics Consult and Monitoring Verna Zuniga is a 76 y.o. male patient admitted to [facility] 2 ICU-[id number]. Pharmacy service has been consulted for vancomycin [...] the care of this patient. Mark Roque [facility] 08/08/2022 9:27 PM CONTRACTOR * Shravan Galvan MD - 08/08/2022 1:31 PM CST [facility] Cardiology Inpatient Follow Up Note Patient Id: Verna Zuniga is a 76 y.o. male. MR#: [id number] REASON FOR VISIT: Follow up for bradycardia [...] care of your patient. Shravan Galvan MD, [facility], Cardiovascular Medicine Office: [phone] This note is dictated via voice recognition software, despite proof reading typographical error arepossible. CONTRACTOR * Stalin Means MD - 08/08/2022 11:04 [...] tongue midline, mucosa moist Lungs CTA Heart:bradycardia [id number], no significant murmur or gallop Abd: +BS, [...] EKG/Min 76 BPM Atrial Rate 76 BPM RI-Interval (MSEC) 300 ms QRS-Interval (MSEC) 122 ms QT-Interval (MSEC) 400 ms QTc 450 ms P [place] -2 degrees R [place] -39 degrees T [place]chorage 105 degrees Diagnosis Sinus rhythm with 1st [...] tablet 5 mg 5 mg oral Q12H [facility] Ross Galindo MD 5 mg at 08/08/22 [...] patient Case discussed with Case Management and Mass Spec Medical complexity/risk: Low complexity case it took me 15 minutes review the case, place pertinentorders, discussed current findings with the patient and examined him Voice recognition software MModal Fluency Direct may have been used dictate and transcribe this document. Hospice Admitting Clerk variances may occur. Despite proofreading, typographical errors may occur. Stalin Stephens MD 08/08/2022 11:04 AM CONTRACTOR CONTRACTOR * Jasmin Rodarte RN - 08/08/2022 9:45 [...] Medicare A & B, AARP Supplement Pharmacy: [id number] - [place] - [address] [place] [address] [place] [phone] [facility] - [place] [id number] [facility] [address] [address] [facility] ) - [place], [place] - [address] [place] [address] [facility] [address] Primary Care Provider: Christine Herzog MD Prior [...] a week How often do you attend bahai or methodist services?: Never Do you belong to any clubs or organizations such as bahai groups, unions, fraternal [...] Collaboration with patient, MD, direct care nurse, Mass Spec, and other members of the health care team to assure needed interventions completed. 2. Return patient to optimal level of self-care post discharge. 3. Creative Technologist will follow for Discharge Planning - interventions as needed 4. Anticipated level of care at discharge 5. Planned Discharge Disposition Jasmin Rodarte RN CONTRACTOR * Ross Galindo MD - 08/07/2022 10:55 [...] His echocardiogram done yesterday on 08/06/2021 showed twjh-qj-frldwvwn left atrial enlargement, mildly dilated right atrium, [...] BILIRUBIN TOTAL mg/dL 0.4 TTE: 08/06/2021 showed xhqm-ix-ytyutixv left atrial enlargement, mildly dilated right atrium, [...] no significant delta, no evidence of ACS Arjk-kl-siylowjm left atrial enlargement and mild dilated right [...] Ross Galindo MD Cardiology 10:56 AM 08/07/22 CONTRACTOR * Stalin Means MD - 08/07/2022 10:28 [...] tongue midline, mucosa moist Lungs CTA Heart:bradycardia [id number], no significant murmur or gallop Abd: +BS, [...] tablet 5 mg 5 mg oral Q12H [facility] Ross Galindo MD 5 mg at 08/07/[address] [...] patient Case discussed with Case Management and Mass Spec Medical complexity/risk: Moderate complexity case it took me 38 minutes review the case, place pertinent orders, discussed current findings with the patient and examined him Voice recognition software MModal Fluency Direct may have been used dictate and transcribe this document. Hospice Admitting Clerk variances may occur. Despite proofreading, typographical errors may occur. Stalin Stephens MD 08/07/2022 10:28 AM CONTRACTOR * Stalin Means MD - 08/06/2022 3:14 [...] move out of the ICU on 08/06/2022. CONTRACTOR documented in this encounter H&P Notes * [...] need PT Prophylaxis: Enoxaparin Wilfredo Jean-Baptiste MD [facility] Department of Anesthesiology and Critical Care CONTRACTOR documented in this encounter Procedure Notes * [...] plan with the patient's team and other medical/consumer experience consultant staff. This time was in addition [...] Vasyl Aranda MD at 08/26/2022 11:51 PM FARM CONTRACTOR CONTRACTOR CONTRACTOR * Wilfredo Jean-Baptiste MD - 08/06/2022 5:48 AM CSTAssociated Order(s): Critical Care Post-Procedure Diagnose(s): Closed fracture of one rib of right side, initial encounter Critical Care Performed by: Wilfredo Jean-Baptiste MD Authorized by: Wilfredo Jean-Baptiste MD CRITICAL CARE: Team: [facility] Shift: PM Level of Billing: Initial [...] plan with the patient's team and other medical/consumer experience consultant staff. This time was in addition to and separate from care provided by other practitioners on this day of service. Tachy/radha arrhythmic event This time was spent by me doing the following: Serial neurovascular exams I spent time reviewing and interpreting data from bedside monitors, laboratory results, and imagingand I spent time documenting in the medical record Wilfredo Jean-Baptiste MD [facility] Department of Anesthesiology and Critical Care CONTRACTOR documented in this encounter Consult Notes * [...] Ross Galindo MD Cardiology 10:39 AM 08/06/22 CONTRACTOR CONTRACTOR documented in this encounter ED Notes * [...] stones 2017 ??? 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 Chronic [...] rate to 65. Will discuss with the marine animal trainer and will bring the patient in for [...] Time: 08/06 302 Comment: Dr. Jean-Baptiste the solar photovoltaic designer accepted the admission to the ICU By: Mario Small DO Final diagnoses: Bradycardia COVID-19 Mario Small DO 08/06/22124 CONTRACTOR * Stefany Mckeon RN - 08/06/2022 12:13 AM CST Pt arrives to ER with son for low HR at home. Son states that HR ranged from 32- 44 with a BP reading of 185/75. Pt was recently diagnosed with Covid and has been taking Paxlovid. Pt denies dizziness and light headiness at home and at this time. CONTRACTOR documented in this encounter Miscellaneous Notes * [...] After visit summary packet given to son/caregiver. CONTRACTOR * Plan of Care - Matteo Olea RN - 08/11/2022 10:51 AM CST [facility] Home Health consult received. [facility] Home Care agency accepted patient with projected start of care within 48 hours of completed referral and discharge. Call placed to patient's home. Interviewed patient's son via phone and discussed [facility] SEWER CONNECTOR services. Confirmed homebound status and verified patient is currently not active with any other SEWER CONNECTOR. Informedpatient's son that staff will be calling within 48 hours regarding an appointment. I sent a secure Yapmo chat to Dr. Christine Herzog (PCP). I informed office of patient's projected [facility] HH SOC 08/12/2022. I requested confirmation that she will follow for HH orders/needs. Awaiting response. CONTRACTOR * Plan of Care - Padma Arshad [...] with PT and sitting up in chair. CONTRACTOR * ECIN Note - Araceli Noriega ORGAN T[employer]ER [employer]LECTRONIC - 08/10/2022 2:47 PM CST Images from the original note were not included. Patient Information: OT Eval and Treat Last 72 Hours OT Evaluation No documentation. OT Treatment No documentation. OT Notes Notes from 08/08/22 through 08/10/22 No notes of this type exist for this encounter. , PT Eval and Treat Last 72 Hours PT Evaluation Row Name 08/09/22 0968 Chart Reviewed Yes -EF Session Type Evaluation [...] assessed for early signs of dementia. Per CANCER RESEARCHER (Dottie), [place] for P.T., as toñito.. -EF [...] need to be verified. -EF Level of Bibb Independent with ADLs;Independent functional transfers;Independent with ambulation;Needs [...] Plan of care initiated -EF PT Recommendation/Plan Detention Facility;Other -EF Patient at high risk for [...] all needs met. -JN Recommendation/Plan PT Recommendation/Plan Detention Facility - PT Equipment Recommended Wheeled walker - User Will (r) = Recorded By, (t) = Taken By, (c) = Cosigned By Initials Name Effective Dates JU Zee Islas, RESIDENT CARE ASSISTANT 11/13/20 - PT Notes 08/09/2022 10:26 PM Progress Notes signed by Jadon Archuleta, PT CONTRACTOR * Plan of Care - No Quiroz, SUE - 08/08/2022 4:57 PM CST Goals: Clinical Goals for the Shift: stable VS, comfort & safety, personnel monitor Summary: Added prn hydralazine for SBP greater [...] intake and output will improve Outcome: Progressing CONTRACTOR * Plan of Care - Flor Holloway [...] and dry skin will improve Outcome: Progressing CONTRACTOR * Plan of Care - Laura Chowdhury [...] and injury in home environment Outcome: Defer CONTRACTOR * Plan of Care - Michelle Najera [...] improve to fullest extent possible Outcome: Progressing CONTRACTOR * Plan of Care - Laura Chowdhury [...] and injury in home environment Outcome: Defer CONTRACTOR * Plan of Care - Rudy Godinez [...] and injury in home environment Outcome: Progressing CONTRACTOR * ED Procedure Note - Mario Small DO - 08/06/2022 4:18 AM FARM CONTRACTOR Associated Order(s): Critical Care Procedure Critical Care [...] monitored bed. Mario Small DO 08/06/22 0419 CONTRACTOR * ED Procedure Note - Mario Small DO - 08/06/2022 1:26 AM FARM CONTRACTOR Associated Order(s): ECG 12 lead Procedure ECG 12 lead Date/Time: 08/06/2022 1:26 AM Performed by: Mario Small DO Authorized by: Юлия Cruz PA Rate: ECG rate: 48 ECG rate assessment: bradycardic Rhythm: Rhythm: atrial fibrillation Ectopy: Ectopy: bigeminy QRS: QRS axis: Left Conduction: Conduction: abnormal Abnormal conduction: non-specific intraventricular conduction delay ST segments: ST segments: Normal T waves: T waves: normal Mario Samll DO 08/06/22 0127 CONTRACTOR documented in this encounter Plan of Treatment Not on file documented as of this encounter Procedures Procedure Name Priority Date/Time Associated Diagnosis Comments XR CHEST 1 VIEW IP Routine 08/11/2022 9:17 AM FARM CONTRACTOR XR SPINE LUMBAR 2 OR 3 VIEWS IP Routine 08/11/2022 9:05 AM FARM CONTRACTOR EGFR Routine 08/11/2022 4:38 AM FARM CONTRACTOR CALCIUM, IONIZED Routine 08/11/2022 4:38 AM FARM CONTRACTOR CBC WITHOUT DIFFERENTIAL Routine 08/11/2022 4:38 AM FARM CONTRACTOR PHOSPHORUS Routine 08/11/2022 4:38 AM FARM CONTRACTOR MAGNESIUM Routine 08/11/2022 4:38 AM FARM CONTRACTOR BASIC METABOLIC PANEL Routine 08/11/2022 4:38 AM FARM CONTRACTOR EGFR Routine 08/10/2022 2:40 AM FARM CONTRACTOR CALCIUM, IONIZED Routine 08/10/2022 2:40 AM FARM CONTRACTOR CBC WITHOUT DIFFERENTIAL Routine 08/10/2022 2:40 AM FARM CONTRACTOR PHOSPHORUS Routine 08/10/2022 2:40 AM FARM CONTRACTOR MAGNESIUM Routine 08/10/2022 2:40 AM FARM CONTRACTOR BASIC METABOLIC PANEL Routine 08/10/2022 2:40 AM FARM CONTRACTOR MRSA ONLY (STAPHYLOCOCCUS AUREUS) PCR Routine 08/09/2022 6:25 PM FARM CONTRACTOR EGFR Routine 08/09/2022 6:22 AM FARM CONTRACTOR CALCIUM, IONIZED Routine 08/09/2022 6:22 AM FARM CONTRACTOR CBC WITHOUT DIFFERENTIAL Routine 08/09/2022 6:22 AM FARM CONTRACTOR PHOSPHORUS Routine 08/09/2022 6:22 AM FARM CONTRACTOR MAGNESIUM Routine 08/09/2022 6:22 AM FARM CONTRACTOR BASIC METABOLIC PANEL Routine 08/09/2022 6:22 AM FARM CONTRACTOR STREP PNEUMONIAE AG, URINE Routine 08/09/2022 2:40 AM FARM CONTRACTOR LEGIONELLA ANTIGEN, URINE Routine 08/09/2022 2:40 AM FARM CONTRACTOR PROCALCITONIN Routine 08/08/2022 7:44 PM FARM CONTRACTOR MYCOPLASMA PNEUMONIAE ANTIBODY, IGG AND IGM Routine 08/08/2022 7:44 PM FARM CONTRACTOR BLOOD CULTURE Routine 08/08/2022 7:44 PM FARM CONTRACTOR BLOOD CULTURE Routine 08/08/2022 7:42 PM FARM CONTRACTOR XR CHEST 1 VIEW ED Urgent/IP Urgent 08/08/2022 5:25 PM FARM CONTRACTOR EGFR Routine 08/08/2022 5:35 AM FARM CONTRACTOR CALCIUM, IONIZED Routine 08/08/2022 5:35 AM FARM CONTRACTOR CBC WITHOUT DIFFERENTIAL Routine 08/08/2022 5:35 AM FARM CONTRACTOR PHOSPHORUS Routine 08/08/2022 5:35 AM FARM CONTRACTOR MAGNESIUM Routine 08/08/2022 5:35 AM FARM CONTRACTOR BASIC METABOLIC PANEL Routine 08/08/2022 5:35 AM FARM CONTRACTOR ECG 12-LEAD STAT 08/07/2022 1:31 PM FARM CONTRACTOR EGFR Routine 08/07/2022 5:48 AM FARM CONTRACTOR DIFFERENTIAL AUTO Routine 08/07/2022 5:4 8 AM FARM CONTRACTOR CALCIUM, IONIZED Routine 08/07/2022 5:48 AM FARM CONTRACTOR CBC WITH AUTO DIFFERENTIAL Routine 08/07/2022 5:48 AM FARM CONTRACTOR PHOSPHORUS Routine 08/07/2022 5:48 AM FARM CONTRACTOR MAGNESIUM Routine 08/07/2022 5:48 AM FARM CONTRACTOR BASIC METABOLIC PANEL Routine 08/07/2022 5:48 AM FARM CONTRACTOR EGFR Routine 08/07/2022 5:35 AM FARM CONTRACTOR MAGNESIUM Routine 08/07/2022 5:35 AM FARM CONTRACTOR BASIC METABOLIC PANEL Routine 08/07/2022 5:35 AM FARM CONTRACTOR CRITICAL CARE Routine 08/06/2022 3:17 PM FARM CONTRACTOR Bradycardia EGFR STAT 08/06/2022 12:22 PM FARM CONTRACTOR THYROID FUNCTION CASCADE Add-On 08/06/2022 12:22 PM FARM CONTRACTOR PROTIME-INR STAT 08/06/2022 12:22 PM FARM CONTRACTOR MAGNESIUM Add-On 08/06/2022 12:22 PM FARM CONTRACTOR CREATININE STAT 08/06/2022 12:22 PM FARM CONTRACTOR TRANSTHORACIC ECHO (TTE) LIMITED/FOLLOW UP W LTD DOPPLER/CF WO CONTRAST STAT 08/06/2022 11:17 AM FARM CONTRACTOR POCT GLUCOSE DEVICE Routine 08/06/2022 7 :42 AM FARM CONTRACTOR TROPONIN T HIGH-SENSITIVITY 6-HOUR Timed 08/06/2022 6:33 AM FARM CONTRACTOR CRITICAL CARE Routine 08/06/2022 5:48 AM FARM CONTRACTOR Closed fracture of one rib of right side, initial encounter ECG 12-LEAD Routine 08/06/2022 5:34 AM FARM CONTRACTOR TROPONIN T HIGH-SENSITIVITY 4-HR Timed 08/06/2022 4:45 AM FARM CONTRACTOR RI CRITICAL CARE ILL/INJURED PATIENT INIT 30-74 MIN Routine 08/06/2022 4:18 AM FARM CONTRACTOR TROPONIN T HIGH-SENSITIVITY 2-HOUR Timed 08/06/2022 2:36 AM FARM CONTRACTOR TROPONIN T HIGH-SENSITIVITY SERIES (BASELINE, 2HR, 4HR, 6HR) STAT 08/06/2022 12:32 AM FARM CONTRACTOR INFLUENZA A/B, RSV, AND COVID-19 PCR Routine 08/06/2022 12:32 AM FARM CONTRACTOR EGFR STAT 08/06/2022 12:32 AM FARM CONTRACTOR DIFFERENTIAL AUTO STAT 08/06/2022 12: 32 AM FARM CONTRACTOR PRO B-TYPE NATRIURETIC PEPTIDE STAT 08/06/2022 12:32 AM FARM CONTRACTOR CBC WITH AUTO DIFFERENTIAL STAT 08/06/2022 12:32 AM FARM CONTRACTOR COMPREHENSIVE METABOLIC PANEL STAT 08/06/2022 12:32 AM FARM CONTRACTOR ECG 12-LEAD STAT 08/06/2022 12:16 AM FARM CONTRACTOR XR CHEST 1 VIEW ED Urgent/IP Urgent 08/06/2022 12:15 AM FARM CONTRACTOR documented in this encounter Results * XR Chest 1 View (08/11/2022 9:17 AM FARM CONTRACTOR) Anatomical Region Laterality Modality Body, Chest N/A Computed Radiogr aphy 08/11/2022 10:0 7 AM FARM CONTRACTOR Narrative 08/11/2022 10:09 AM FARM CONTRACTOR EXAM DESCRIPTION: ?? XR CHEST 1 VIEW [...] D: ??08/11/2022 10:09 AM T: Report ID: [id number] Reading Location: ??[id number] Procedure Note Vahe Luz MD - 08/11/2022 [...] signed by Vahe NIEVES T: Report ID: [id number] Reading Location: [id number] Nilupa Marielle Le MD IMG XR RI OCEDURES Final Result * XR Spine Lumbar 2 or 3 Views (08/11/2022 9:05 AM FARM CONTRACTOR) Anatomical Region Laterality Modality Spine N/A Computed Radiogr aphy 08/11/2022 10:0 5 AM FARM CONTRACTOR Narrative 08/11/2022 10:07 AM FARM CONTRACTOR EXAM DESCRIPTION: ?? XR SPINE LUMBAR 2 [...] D: ??08/11/2022 10:07 AM T: Report ID: [id number] Reading Location: ??[id number] Procedure Note Vahe Luz MD - 08/11/2022 [...] Vahe Luz M.D. EZEQUIEL T: Report ID: [id number] Reading Location: [place] [address] us Hi Phanradhabrian Arnold Le MD IMG XR RI OCEDURES Final Result * eGFR (08/11/2022 4:38 AM FARM CONTRACTOR) eGFR 70 mL/min/1. 73 m2 [facility] [...] last reviewed 2021. Blood 08/11/2022 4:38 AM FARM CONTRACTOR 08/11/2022 4:52 AM FARM CONTRACTOR us Wilfredo Jean-Baptiste MD LAB BLOOD ORDERABLES Final R esult [facility] [address] [facility] Department [place] [address] * Phosphorus (08/11/2022 4:38 AM FARM CONTRACTOR) Phosphorus, pl 3.2 2.3 - 4.5 mg/dL [facility] Blood 08/11/2022 4:38 AM FARM CONTRACTOR 08/11/2022 4:52 AM FARM CONTRACTOR Wilfredo Jean-Baptiste MD LAB BLOOD ORDERABLES Final R esult Performing Organization Address City/State/[facility] Co de Phone Number [facility] [address] [place] [address] * Magnesium (08/11/2022 4:38 AM FARM CONTRACTOR) [facility] Magnesium 2.3 1.4 - 2.5 mg/dL [facility] Blood 08/11/2022 4:38 AM FARM CONTRACTOR 08/11/2022 4:52 AM FARM CONTRACTOR Wilfredo Jean-Baptiste MD LAB BLOOD ORDERABLES Final R [facility] Performing Organization Address [facility] Co de Phone Number [address] [employer] [address] * Calcium, ionized (08/11/2022 4:38 AM FARM CONTRACTOR) [facility] Calcium, Ionized 4.96 4.50 - 5.20 mg/dL [facility] Blood 08/11/2022 4:38 AM FARM CONTRACTOR 08/11/2022 4:52 AM FARM CONTRACTOR Wilfredo Jean-Baptiste MD LAB BLOOD ORDERABLES Final R [facility] Performing Organization Address City/[facility] Co de Phone Number [address] [employer] [place] [address] * (ABNORMAL) Basic metabolic panel (08/11/2022 4:38 AM FARM CONTRACTOR) [facility] Sodium 142 135 - 145 mmol/L [facility] Potassium, pl 3.9 3.3 - 4.9 mmol/L [facility] Chloride 108 97 - 110 mmol/L [facility] CO2 26 22 - 32 mmol/L [facility] Anion gap 8 2 - 15 mmol/L [facility] BUN 22 8 - 25 mg/dL [facility] Creatinine 1.10 0.80 - 1.30 mg/dL [facility] Glucose 93 70 - 199 mg/dL [facility] Comment: Interpretive Data Fasting glucose >/= 126 [...] 2022. Calcium 8.3(L) 8.5 - 10.3 mg/dL [facility] Blood 08/11/2022 4:38 AM FARM CONTRACTOR 08/11/2022 4:52 AM FARM CONTRACTOR Wilfredo Jean-Baptiste MD LAB BLOOD ORDERABLES Final R esult [facility] [address] [facility] Department of [place] [address] * (ABNORMAL) CBC without differential (08/11/2022 4:38 AM FARM CONTRACTOR) WBC 6.1 3.8 - 9.9 K/cumm [facility] Hgb 13.8 13.0 - 17.5 g/dL [facility] Hct 44.5 38.9 - 50.3 % [facility] Plt 171 150 - 400 K/cumm [facility] MPV 11.2 9.1 - 12.3 fL [facility] RBC 5.15 4.30 - 5.80 M/cumm [facility] MCV 86.4 81.3 - 96.4 fL [facility] MCH 26.8(L) 27.1 - 33.3 pg [facility] MCHC 31.0(L) 32.3 - 35.7 g/dL [facility] RDW CV 14.2 11.1 - 14.9 % [facility] RDW SD 44.7 35.7 - 48.1 fL [facility] NRBC abs 0.00 0.00 - 0.01 K/cumm [facility] Blood 08/11/2022 4:38 AM FARM CONTRACTOR 08/11/2022 4:52 AM FARM CONTRACTOR us Wilfredo Jean-Baptiste MD LAB BLOOD ORDERABLES Final R esult Performing Organization Address [facility] Co de Phone Number [facility] [address] [facility] Department [place] [address] * eGFR (08/10/2022 2:40 AM FARM CONTRACTOR) eGFR 45 mL/min/1. 73 m2 [facility] Comment: [...] last reviewed 2021. Blood 08/10/2022 2:40 AM FARM CONTRACTOR 08/10/2022 4:14 AM FARM CONTRACTOR us Wilfredo Jean-Baptiste MD LAB BLOOD ORDERABLES Final R esult Performing Organization Address City/[facility]/ZIP Co de Phone Number [address] [address] * Phosphorus (08/10/2022 2:40 AM FARM CONTRACTOR) Phosphorus, pl 3.4 2.3 - 4.5 mg/dL [facility] Blood 08/10/2022 2:40 AM FARM CONTRACTOR 08/10/2022 4:14 AM FARM CONTRACTOR Wilfredo Jean-Baptiste MD LAB BLOOD ORDERABLES Final R esult [address] [address] * Magnesium (08/10/2022 2:40 AM FARM CONTRACTOR) Magnesium 2.4 1.4 - 2.5 mg/dL [facility] Blood 08/10/2022 2:40 AM FARM CONTRACTOR 08/10/2022 4:14 AM FARM CONTRACTOR Wilfredo Jean-Baptiste MD LAB BLOOD ORDERABLES Final R esult [address] [address] * Calcium, ionized (08/10/2022 2:40 AM FARM CONTRACTOR) Pathologist [facility] Calcium, Ionized 4.86 4.50 - 5.20 mg/dL [facility] Blood 08/10/2022 2:40 AM FARM CONTRACTOR 08/10/2022 4:14 AM FARM CONTRACTOR Wilfredo Jean-Baptiste MD LAB BLOOD ORDERABLES Final R esult [address] [address] * (ABNORMAL) Basic metabolic panel (08/10/2022 2:40 AM FARM CONTRACTOR) Sodium 140 135 - 145 mmol/L [facility] Potassium, pl 4.3 3.3 - 4.9 mmol/L [facility] Chloride 108 97 - 110 mmol/L [facility] CO2 21(L) 22 - 32 mmol/L [facility] Anion gap 11 2 - 15 mmol/L [facility] BUN 29(H) 8 - 25 mg/dL [facility] Creatinine 1.60(H) 0.80 - 1.30 mg/dL [facility] Glucose 94 70 - 199 mg/dL [facility] Comment: Interpretive Data Fasting glucose >/= 126 [...] 2022. Calcium 8.5 8.5 - 10.3 mg/dL [facility] Blood 08/10/2022 2:40 AM FARM CONTRACTOR 08/10/2022 4:14 AM FARM CONTRACTOR Wilfredo Jean-Baptiste MD LAB BLOOD ORDERABLES Final R esult [facility] [address] [facility] Department of Laboratories [place], [place] [id number] * (ABNORMAL) CBC without differential (08/10/2022 2:40 AM FARM CONTRACTOR) Pathologist [facility] WBC 6.2 3.8 - 9.9 K/cumm [facility] Hgb 13.1 13.0 - 17.5 g/dL [facility] Hct 40.5 38.9 - 50.3 % [facility] Plt 184 150 - 400 K/cumm [facility] MPV 12.4(H) 9.1 - 12.3 fL [facility] RBC 4.76 4.30 - 5.80 M/cumm [facility] MCV 85.1 81.3 - 96.4 fL [facility] MCH 27.5 27.1 - 33.3 pg [facility] MCHC 32.3 32.3 - 35.7 g/dL [facility] RDW CV 14.3 11.1 - 14.9 % [facility] RDW SD 43.6 35.7 - 48.1 fL [facility] NRBC abs 0.00 0.00 - 0.01 K/cumm [facility] Blood 08/10/2022 2:40 AM FARM CONTRACTOR 08/10/2022 4:15 AM FARM CONTRACTOR Wilfredo Jean-Baptiste MD LAB BLOOD ORDERABLES Final R esult Performing Organization Address [facility] de Phone Number [address] [address] * MRSA Only (Staphylococcs aureus) PCR Nasal (08/09/2022 6:25 PM FARM CONTRACTOR) [facility] PCR Scrn, Methicillin resistant Staphylococcus aureus (MRSA) Not Detected Not Detected [facility] Comment: Testing performed using Nucleic Acid Amplification with the [employer] Xpert MRSA Assay. This assay detects DNA from SCCmec strains of Staphylococcus aureus using Real- Time PCR and has been cleared by the FDA. Performance characteristics have been verified by the [facility]. Nasal 08/09/2022 6:25 PM FARM CONTRACTOR 08/09/2022 6:31 PM FARM CONTRACTOR Hi wright MD LAB MICROBIOLOGY - GENERAL ORDERABLES Final Result Performing Organization Address [facility] de Phone Number [address] [place] [address] * eGFR (08/09/2022 6:22 AM FARM CONTRACTOR) [facility] eGFR 63 mL/min/1. 73 m2 [facility] Comment: Interpretive Data Reference Interval Normal ?>/= [...] last reviewed 2021. Blood 08/09/2022 6:22 AM FARM CONTRACTOR 08/09/2022 6:58 AM FARM CONTRACTOR Wilfredo Jean-Baptiste MD LAB BLOOD ORDERABLES Final R esult Performing Organization Address [facility] Co de Phone Number [address] [place] [address] * Phosphorus (08/09/2022 6:22 AM FARM CONTRACTOR) Phosphorus, pl 2.6 2.3 - 4.5 mg/dL [facility] Blood 08/09/2022 6:22 AM FARM CONTRACTOR 08/09/2022 6:58 AM FARM CONTRACTOR Wilfredo Jean-Baptiste MD LAB BLOOD ORDERABLES Final R esult Performing Organization Address [facility] Co de Phone Number [address] [place] [address] * Magnesium (08/09/2022 6:22 AM FARM CONTRACTOR) Magnesium 2.2 1.4 - 2.5 mg/dL [facility] Blood 08/09/2022 6:22 AM FARM CONTRACTOR 08/09/2022 6:58 AM FARM CONTRACTOR Wilfredo Jean-Baptiste MD LAB BLOOD ORDERABLES Final R esult Performing Organization Address City/[facility] Co de Phone Number [address] [address] * Calcium, ionized (08/09/2022 6:22 AM FARM CONTRACTOR) Pathologist [facility] Calcium, Ionized 4.98 4.50 - 5.20 mg/dL [facility] Blood 08/09/2022 6:22 AM FARM CONTRACTOR 08/09/2022 6:58 AM FARM CONTRACTOR Wilfredo Jean-Baptiste MD LAB BLOOD ORDERABLES Final R esult Performing Organization Address [facility] de Phone Number [address] [address] * Basic metabolic panel (08/09/2022 6:22 AM FARM CONTRACTOR) [facility] Sodium 140 135 - 145 mmol/L [facility] Potassium, pl 4.1 3.3 - 4.9 mmol/L [facility] Chloride 108 97 - 110 mmol/L [facility] CO2 22 22 - 32 mmol/L [facility] Anion gap 10 2 - 15 mmol/L [facility] BUN 19 8 - 25 mg/dL [facility] Creatinine 1.20 0.80 - 1.30 mg/dL [facility] Glucose 99 70 - 199 mg/dL [facility] Comment: Interpretive Data Fasting glucose >/= 126 [...] 2022. Calcium 8.6 8.5 - 10.3 mg/dL [facility] Blood 08/09/2022 6:22 AM FARM CONTRACTOR 08/09/2022 6:58 AM FARM CONTRACTOR Wilfredo Jean-Baptiste MD LAB BLOOD ORDERABLES Final R esult Performing Organization Address City/[facility]/ZIP Co de Phone Number [address] [employer] [place] [address] * (ABNORMAL) CBC without differential (08/09/2022 6:22 AM FARM CONTRACTOR) WBC 5.5 3.8 - 9.9 K/cumm [facility] Hgb 12.7(L) 13.0 - 17.5 g/dL [facility] Hct 39.9 38.9 - 50.3 % [facility] Plt 167 150 - 400 K/cumm [facility] MPV 12.0 9.1 - 12.3 fL [facility] RBC 4.69 4.30 - 5.80 M/cumm [facility] MCV 85.1 81.3 - 96.4 fL [facility] MCH 27.1 27.1 - 33.3 pg [facility] MCHC 31.8(L) 32.3 - 35.7 g/dL [facility] RDW CV 14.2 11.1 - 14.9 % [facility] RDW SD 43.3 35.7 - 48.1 fL [facility] NRBC abs 0.00 0.00 - 0.01 K/cumm [facility] Blood 08/09/2022 6:22 AM FARM CONTRACTOR 08/09/2022 6:58 AM FARM CONTRACTOR Wilfredo Jean-Baptiste MD LAB BLOOD ORDERABLES Final R esult Performing Organization Address City/[facility]/ZIP Co de Phone Number [address] [employer] [place] [address] * Legionella antigen Urine (08/09/2022 2:40 AM FARM CONTRACTOR) Legionella Ag Negative Negative [facility] Comment: Interpretive Data This test detects only Legionella pneumophila serogroup 1 antigen. Testing performed by [facility] ([phone]). Current interpretive data was last revised on 2019. Testing performed by: [facility], [address] [place]., [address] Urine 08/09/2022 2:40 AM FARM CONTRACTOR 08/09/2022 7:32 AM FARM CONTRACTOR Stalin Haro MD LAB MICROBIOLOGY - GE NERAL ORDERABLES Final Result [address] [place] [place] [address] * Strep pneumoniae antigen, urine Urine (08/09/2022 2:40 AM FARM CONTRACTOR) S. pneumoniae Ag Negative Negative [facility] Urine 08/09/2022 2:40 AM FARM CONTRACTOR 08/09/2022 2:48 AM FARM CONTRACTOR Stalin Haro MD LAB MICROBIOLOGY - GE NERAL ORDERABLES Final Result Performing Organization Address City/[facility]/ZIP Co de Phone Number [address] [place] [address] * Procalcitonin (08/08/2022 7:44 PM FARM CONTRACTOR) Procalcitonin 0.09 0.02 - 0.80 ng/mL [facility] Blood 08/08/2022 7:44 PM FARM CONTRACTOR 08/08/2022 7:51 PM FARM CONTRACTOR Stalin Haro MD LAB BLOOD ORDERABLES Final Result Performing Organization Address City/[facility]/ZIP Co de Phone Number [address] [employer] [place] [address] * Blood culture Blood (08/08/2022 7:44 PM FARM CONTRACTOR) Report Final Report: No growth [facility] Comment:Testing performed by : [facility], [address] [facility], [place]., [address] Blood 08/08/2022 7:44 PM FARM CONTRACTOR 08/08/2022 9:44 PM FARM CONTRACTOR Narrative [facility] - 08/13/2022 7:00 AM FARM CONTRACTOR From a different site than #1. 1. [...] organism identification may be performed using the [employer] Gram-Positive Blood Culture Assay. This assay detects microbial DNA in positive blood culture broth via hybridization of target DNA to capture oligonucleotides on a microarray. This assay has been cleared by the [place] Food and Drug Administration and its performance characteristics have been verified by the [facility]. 5. ?For questions about this culture, contact the Microbiology Laboratory at [phone]. Interpretive data was last revised on 2019. us Stalin Haro MD LAB MICROBIOLOGY - [facility] ORDERABLES Final Result [facility] [address] [facility] Department [place] [address] * (ABNORMAL) Mycoplasma pneumoniae antibody, IgG and IgM (08/08/2022 7:44 PM FARM CONTRACTOR) M. pneumoniae IgG Positive(A) Negative [facility] M. pneumoniae IgM Negative Negative [facility] M. pneumoniae interp See Footnote [facility] Comment: RESULT: Results suggest past exposure. ADDITIONAL INFORMATION This test has been modified from the wood grainer's instructions. Its performance characteristics were determined by [facility] in a manner consistent with CLIA requirements. This test has not been cleared or approved by the [place]. Food and Drug Administration. Test Performed by: [facility] Laboratories - [facility] [address] [place] [id number] [employer] Ferry Driver: Wade Paul M.D. Ph.D.; CLIA# [id number] Blood 08/08/2022 7:44 PM FARM CONTRACTOR 08/08/2022 7:51 PM FARM CONTRACTOR Stalin Haro MD LAB MICROBIOLOGY - [facility] ORDERABLES Final Result [facility] [address] [facility] Department [place] [address] * Blood culture Blood (08/08/2022 7:42 PM FARM CONTRACTOR) Report Final Report: No growth [facility] Comment:Testing performed by : [facility], [address] [facility] [place]., [address] Blood 08/08/2022 7:42 PM FARM CONTRACTOR 08/09/2022 1:51 AM FARM CONTRACTOR Narrative [facility] - 08/13/2022 7:00 AM FARM CONTRACTOR 1. ?Blood cultures are incubated for 4 [...] organism identification may be performed using the [employer] Gram-Positive Blood Culture Assay. This assay detects microbial DNA in positive blood culture broth via hybridization of target DNA to capture oligonucleotides on a microarray. This assay has been cleared by the [place] Food and Drug Administration and its performance characteristics have been verified by the [facility]. 5. ?For questions about this culture, contact the Microbiology Laboratory at [phone]. Interpretive data was last revised on 2019. Stalin Haro MD LAB MICROBIOLOGY - [facility] ORDERABLES Final Result [facility] [address] [facility] Department [place] [address] * XR Chest 1 View (08/08/2022 5:25 PM FARM CONTRACTOR) Anatomical Region Laterality Modality Body, Chest N/A Computed Radiogr aphy 08/08/2022 6:00 PM FARM CONTRACTOR Narrative 08/08/2022 6:04 PM FARM CONTRACTOR EXAM DESCRIPTION: ?? XR CHEST 1 VIEW [...] D: ??08/08/2022 6:04 PM T: Report ID: [id number] Reading Location: ??[id number] Procedure Note Angeline Fernando MD - 08/08/2022 [...] Angeline Fernando M.D. QX T: Report ID: [id number] Reading Location: [id number] Stalin Haro MD IMG XR PROCEDURES Fin al Result * eGFR (08/08/2022 5:35 AM FARM CONTRACTOR) eGFR 63 mL/min/1. 73 m2 [facility] [...] last reviewed 2021. Blood 08/08/2022 5:35 AM FARM CONTRACTOR 08/08/2022 5:50 AM FARM CONTRACTOR Wilfredo Jean-Baptiste MD LAB BLOOD ORDERABLES Final R esult Performing Organization Address [facility] Co de Phone Number [address] [employer] [place] [address] * Phosphorus (08/08/2022 5:35 AM FARM CONTRACTOR) Phosphorus, pl 2.4 2.3 - 4.5 mg/dL [facility] Blood 08/08/2022 5:35 AM FARM CONTRACTOR 08/08/2022 5:50 AM FARM CONTRACTOR Wilfredo Jean-Baptiste MD LAB BLOOD ORDERABLES Final R esult Performing Organization Address [facility] Co de Phone Number [address] [address] * Magnesium (08/08/2022 5:35 AM FARM CONTRACTOR) Magnesium 2.1 1.4 - 2.5 mg/dL [facility] Blood 08/08/2022 5:35 AM FARM CONTRACTOR 08/08/2022 5:50 AM FARM CONTRACTOR Wilfredo Jean-Baptiste MD LAB BLOOD ORDERABLES Final R esult Performing Organization Address [facility] Co de Phone Number [address] [employer] [place] [address] * Calcium, ionized (08/08/2022 5:35 AM FARM CONTRACTOR) Calcium, Ionized 5.05 4.50 - 5.20 mg/dL [facility] Blood 08/08/2022 5:35 AM FARM CONTRACTOR 08/08/2022 5:50 AM FARM CONTRACTOR Wilfredo Jean-Baptiste MD LAB BLOOD ORDERABLES Final R esult Performing Organization Address [facility] Co de Phone Number [place] [phone] [facility] [place] [address] * Basic metabolic panel (08/08/2022 5:35 AM FARM CONTRACTOR) Pathologist [facility] Sodium 141 135 - 145 mmol/L [facility] Potassium, pl 3.9 3.3 - 4.9 mmol/L [facility] Chloride 106 97 - 110 mmol/L [facility] CO2 25 22 - 32 mmol/L [facility] Anion gap 6 2 - 15 mmol/L [facility] BUN 21 8 - 25 mg/dL [facility] Creatinine 1.20 0.80 - 1.30 mg/dL [facility] Glucose 101 70 - 199 mg/dL [facility] Comment: Interpretive Data Fasting glucose >/= 126 [...] 2022. Calcium 8.9 8.5 - 10.3 mg/dL [facility] Blood 08/08/2022 5:35 AM FARM CONTRACTOR 08/08/2022 5:50 AM FARM CONTRACTOR Wilfredo Jean-Baptiste MD LAB BLOOD ORDERABLES Final R esult Performing Organization Address City/[facility]/ZIP Co de Phone Number [address] [place] [address] * (ABNORMAL) CBC without differential (08/08/2022 5:35 AM FARM CONTRACTOR) Pathologist [facility] WBC 4.6 3.8 - 9.9 K/cumm [facility] Hgb 13.1 13.0 - 17.5 g/dL [facility] Hct 40.9 38.9 - 50.3 % [facility] Plt 163 150 - 400 K/cumm [facility] MPV 11.7 9.1 - 12.3 fL [facility] RBC 4.81 4.30 - 5.80 M/cumm [facility] MCV 85.0 81.3 - 96.4 fL [facility] MCH 27.2 27.1 - 33.3 pg [facility] MCHC 32.0(L) 32.3 - 35.7 g/dL [facility] RDW CV 14.0 11.1 - 14.9 % [facility] RDW SD 43.4 35.7 - 48.1 fL [facility] NRBC abs 0.00 0.00 - 0.01 K/cumm [facility] Blood 08/08/2022 5:35 AM FARM CONTRACTOR 08/08/2022 5:50 AM FARM CONTRACTOR us Wilfredo Jean-Baptiste MD LAB BLOOD ORDERABLES Final R esult [facility] [address] [facility] Department [place] [address] * ECG 12 lead (08/07/2022 1:31 PM FARM CONTRACTOR) [facility] Ventricular Rate EKG/Min 76 BPM [facility] Atrial Rate 76 BPM [facility] RI-Interval (MSEC) 300 ms [facility] QRS-Interval (MSEC) 122 ms [facility] QT-Interval (MSEC) 400 ms [facility] QTc 450 ms [facility] P [place] -2 degrees [facility] R [place] -39 degrees [facility] T [place] 105 degrees [facility] Diagnosis Sinus rhythm with 1st degree A-V block Occasional Premature ventricular complexes Left axis deviation Intraventricula r conduction defect ST & T wave abnormality, consider lateral ischemia Abnormal ECG When compared with ECG of 06-AUG-2022 05:34, Sinus rhythm has replaced Atrial fibrillation QT has shortened [facility] 08/07/2022 1:31 PM FARM CONTRACTOR 08/07/2022 9:11 PM FARM CONTRACTOR us Ross Galindo MD ECG ORDERABLES Final Result [facility] * eGFR (08/07/2022 5:48 AM FARM CONTRACTOR) Pathologist [facility] eGFR 63 mL/min/1. 73 m2 [facility] [...] last reviewed 2021. Blood 08/07/2022 5:48 AM FARM CONTRACTOR 08/07/2022 6:05 AM FARM CONTRACTOR us Wilfredo Jean-Baptiste MD LAB BLOOD ORDERABLES Final R esult Performing Organization Address City/[facility]/ZIP Co de Phone Number [facility] [address] [facility] Department [place] [address] * Differential, auto (08/07/2022 5:48 AM FARM CONTRACTOR) Neutrophil abs 2.5 1.7 - 6.5 K/cumm [facility] Imm gran abs 0.0 0.0 - 0.1 K/cumm [facility] Lymphocyte abs 1.3 0.8 - 3.3 K/cumm [facility] Monocyte abs 0.4 0.2 - 0.8 K/cumm [facility] Eosinophil abs 0.3 0.0 - 0.5 K/cumm [facility] Basophil abs 0.1 0.0 - 0.1 K/cumm [facility] Neutrophil pct 55.4 % [facility] Comment: Interpretive Data Percent cell count reference ranges are not reported, since discordance with absolute values may lead to misinterpretation of CBC data. Current Interpretive Data was last revised on 2017. Imm gran pct 0.0 % [facility] Comment: Interpretive Data Percent cell count reference ranges are not reported, since discordance with absolute values may lead to misinterpretation of CBC data. Current Interpretive Data was last revised on 2017. Lymphocyte pct 28.5 % [facility] Comment: Interpretive Data Percent cell count reference ranges are not reported, since discordance with absolute values may lead to misinterpretation of CBC data. Current Interpretive Data was last revised on 2017. Monocyte pct 9.4 % [facility] Comment: Interpretive Data Percent cell count reference ranges are not reported, since discordance with absolute values may lead to misinterpretation of CBC data. Current Interpretive Data was last revised on 2017. Eosinophil pct 5.6 % [facility] Comment: Interpretive Data Percent cell count reference ranges are not reported, since discordance with absolute values may lead to misinterpretation of CBC data. Current Interpretive Data was last revised on 2017. Basophil pct 1.1 % [facility] Comment: Interpretive Data Percent cell count reference ranges are not reported, since discordance with absolute values may lead to misinterpretation of CBC data. Current Interpretive Data was last revised on 2017. Blood 08/07/2022 5:48 AM FARM CONTRACTOR 08/07/2022 6:04 AM FARM CONTRACTOR us Hatim A. Josie MD LAB BLOOD ORDERABLES Final R esult Performing Organization Address City/[facility]/ZIP Co de Phone Number [address] [employer] [address] * Phosphorus (08/07/2022 5:48 AM FARM CONTRACTOR) Phosphorus, pl 2.7 2.3 - 4.5 mg/dL [facility] Blood 08/07/2022 5:48 AM FARM CONTRACTOR 08/07/2022 6:05 AM FARM CONTRACTOR Wilfredo Jean-Baptiste MD LAB BLOOD ORDERABLES Final R esult Performing Organization Address [facility] Co de Phone Number [address] [employer] [place] [address] * Magnesium (08/07/2022 5:48 AM FARM CONTRACTOR) Pathologist [facility] Magnesium 2.1 1.4 - 2.5 mg/dL [facility] Blood 08/07/2022 5:48 AM FARM CONTRACTOR 08/07/2022 6:05 AM FARM CONTRACTOR Wilfredo Jean-Baptiste MD LAB BLOOD ORDERABLES Final R esult Performing Organization Address City/[facility] Co de Phone Number [address] [employer] [place] [address] * Calcium, ionized (08/07/2022 5:48 AM FARM CONTRACTOR) Pathologist [facility] Calcium, Ionized 5.05 4.50 - 5.20 mg/dL [facility] Blood 08/07/2022 5:48 AM FARM CONTRACTOR 08/07/2022 6:05 AM FARM CONTRACTOR Wilfredo Jean-Baptiste MD LAB BLOOD ORDERABLES Final R esult Performing Organization Address City/[facility]/ZIP Co de Phone Number [address] [employer] [place] [address] * (ABNORMAL) Basic metabolic panel (08/07/2022 5:48 AM FARM CONTRACTOR) [facility] Sodium 143 135 - 145 mmol/L [facility] Potassium, pl 3.7 3.3 - 4.9 mmol/L [facility] Chloride 111(H) 97 - 110 mmol/L [facility] CO2 22 22 - 32 mmol/L [facility] Anion gap 10 2 - 15 mmol/L [facility] BUN 24 8 - 25 mg/dL [facility] Creatinine 1.20 0.80 - 1.30 mg/dL [facility] Glucose 94 70 - 199 mg/dL [facility] Comment: Interpretive Data Fasting glucose >/= 126 [...] 2022. Calcium 8.3(L) 8.5 - 10.3 mg/dL [facility] Blood 08/07/2022 5:48 AM FARM CONTRACTOR 08/07/2022 6:05 AM FARM CONTRACTOR us Wilfredo Jean-Baptiste MD LAB BLOOD ORDERABLES Final R esult [facility] [address] [facility] Department [place] [address] * (ABNORMAL) CBC with auto differential (08/07/2022 5:48 AM FARM CONTRACTOR) [facility] WBC 4.5 3.8 - 9.9 K/cumm [facility] Hgb 13.0 13.0 - 17.5 g/dL [facility] Hct 40.4 38.9 - 50.3 % [facility] Plt 142(L) 150 - 400 K/cumm [facility] MPV 11.3 9.1 - 12.3 fL [facility] RBC 4.75 4.30 - 5.80 M/cumm [facility] MCV 85.1 81.3 - 96.4 fL [facility] MCH 27.4 27.1 - 33.3 pg [facility] MCHC 32.2(L) 32.3 - 35.7 g/dL [facility] CV 14.2 11.1 - 14.9 % [facility] SD 44.0 35.7 - 48.1 fL [facility] NRBC abs 0.00 0.00 - 0.01 K/cumm [facility] Blood 08/07/2022 5:48 AM FARM CONTRACTOR 08/07/2022 6:04 AM FARM CONTRACTOR us Ross Galindo MD LAB BLOOD ORDERABLES Final R esult [facility] [address] [facility] Department [place] [address] * eGFR (08/07/2022 5:35 AM FARM CONTRACTOR) eGFR 63 mL/min/1. 73 m2 [facility] Comment: [...] last reviewed 2021. Blood 08/07/2022 5:35 AM FARM CONTRACTOR 08/07/2022 6:05 AM FARM CONTRACTOR us Ross Galindo MD LAB BLOOD ORDERABLES [facility] Performing Organization Address [facility] de Phone Number [address] [employer] [place] [address] * Magnesium (08/07/2022 5:35 AM FARM CONTRACTOR) Pathologist [facility] Magnesium 2.0 1.4 - 2.5 mg/dL [facility] Blood 08/07/2022 5:35 AM FARM CONTRACTOR 08/07/2022 6:05 AM FARM CONTRACTOR us Ross Galindo MD LAB BLOOD ORDERABLES [facility] Performing Organization Address [facility] de Phone Number [address] [address] * (ABNORMAL) Basic metabolic panel (08/07/2022 5:35 AM FARM CONTRACTOR) Pathologist [facility] Sodium 141 135 - 145 mmol/L [facility] Potassium, pl 3.7 3.3 - 4.9 mmol/L [facility] Chloride 110 97 - 110 mmol/L [facility] CO2 23 22 - 32 mmol/L [facility] Anion gap 8 2 - 15 mmol/L [facility] BUN 24 8 - 25 mg/dL [facility] Creatinine 1.20 0.80 - 1.30 mg/dL [facility] Glucose 93 70 - 199 mg/dL [facility] Comment: Interpretive Data Fasting glucose >/= 126 [...] mg/dL [facility] Blood 08/07/2022 5:35 AM FARM CONTRACTOR 08/07/2022 6:05 AM FARM CONTRACTOR us Ross Galindo MD LAB BLOOD ORDERABLES Final R esult [facility] [address] [facility] Department [place] [address] * Critical Care (08/06/2022 3:17 PM FARM CONTRACTOR) Narrative Vasyl Aranda MD - 08/06/2022 3:17 PM FARM CONTRACTOR Ganesh Nicolas NP ? 08/06/2022 ??3:19 PM [...] plan with the patient's team and other medical/consumer experience consultant staff. This time was in addition [...] Final Result * eGFR (08/06/2022 12:22 PM FARM CONTRACTOR) [facility] eGFR 78 mL/min/1. 73 m2 [facility] Comment: [...] reviewed 2021. Blood 08/06/2022 12:2 2 PM FARM CONTRACTOR 08/06/2022 12:43 PM FARM CONTRACTOR us Ross Galindo MD LAB BLOOD ORDERABLES Final R esult [facility] [address] [facility] Department [place] [address] * Creatinine (08/06/2022 12:22 PM FARM CONTRACTOR) Creatinine 1.00 0.80 - 1.30 mg/dL [facility] Blood 08/06/2022 12:2 2 PM FARM CONTRACTOR 08/06/2022 12:43 PM FARM CONTRACTOR Narrative [facility] - 08/06/2022 1:08 PM FARM CONTRACTOR Baseline prior to apixaban initiation. us Ross Galindo MD LAB BLOOD ORDERABLES Final R esult Performing Organization Address City/[facility] Co de Phone Number [id number] [employer] [place] [address] * (ABNORMAL) Protime-INR (08/06/2022 12:22 PM FARM CONTRACTOR) PT 14.9(H) 12.0 - 14.6 sec [facility] [...] on 2019. Blood 08/06/2022 12:2 2 PM FARM CONTRACTOR 08/06/2022 12:43 PM FARM CONTRACTOR Narrative [facility] - 08/06/2022 1:37 PM FARM CONTRACTOR Baseline prior to apixaban initiation. us Ross Galindo MD LAB BLOOD ORDERABLES Final R [facility] Performing Organization Address [facility] de Phone Number [address] [employer] [place] [address] * Magnesium (08/06/2022 12:22 PM FARM CONTRACTOR) Magnesium 2.1 1.4 - 2.5 mg/dL [facility] Blood 08/06/2022 12:2 2 PM FARM CONTRACTOR 08/06/2022 12:43 PM FARM CONTRACTOR Narrative [facility] - 08/06/2022 1:18 PM FARM CONTRACTOR Run off this morning's labs done around 12:30 a.m. us Ross Galindo MD LAB BLOOD ORDERABLES Final R esult Performing Organization Address City/[facility] Co de Phone Number [address] [employer] [place] [address] * TSH reflex to free T4 (08/06/2022 12:22 PM FARM CONTRACTOR) TSH 1.68 0.30 - 4.20 mcIUnit/mL [facility] Blood 08/06/2022 12:2 2 PM FARM CONTRACTOR 08/06/2022 12:43 PM FARM CONTRACTOR Narrative [facility] - 08/06/2022 1:18 PM FARM CONTRACTOR Please run off of labs done around 12:30 a.m. us Ross Galindo MD LAB BLOOD ORDERABLES Final R esult [facility] [address] [facility] Department [place] [employer] [place] [address] * TRANSTHORACIC ECHO (TTE) LIMITED/FOLLOW UP W LTD DOPPLER/CF WO CONTRAST (08/06/2022 11:17 AM FARM CONTRACTOR) Anatomical Region Laterality Modality Ultrasound 08/06/2022 11:1 7 AM FARM CONTRACTOR Narrative 08/06/2022 3:43 PM FARM CONTRACTOR ? Adult Echocardiogram + ----- + :Name: VERNA ZUNIGA ?? Study Date: 08/06/2022 ?Status: MHB ? : : ?Patient Location: [facility] 2 ICU^[id number]^Height: 67 in ? : : ?Weight: 148 [...] Date: 08/06/2022Status: B : : Patient Location: [address]^[id number]^Height: 67 in : : : 148 lbBP: [...] ult * POCT glucose (08/06/2022 7:42 AM FARM CONTRACTOR) [facility] Signature Glucose, POC 85 70 - 199 mg/dL [facility] Blood 08/06/2022 7:42 AM FARM CONTRACTOR 08/06/2022 7:42 AM FARM CONTRACTOR us Wilfredo Jean-Baptiste MD LAB POCT ORDERABLES - DEVICE Final Result [facility] [address] [facility] [place] [address] * Troponin T high-sensitivity 6-hour (08/06/2022 6:33 AM FARM CONTRACTOR) Trop T hs 22 <=22 ng/L [facility] Comment: Interpretive Data For further hscTnT resources including the diagnostic algorithm and an aid in interpretation, copy and paste this link: https://nrl.testcatalog.org/show/hsTrop Current Interpretive Data last revised 2020. Trop T hs delta -1 ng/L [facility] Trop T hs interp Insignificant [facility] Blood 08/06/2022 6:33 AM FARM CONTRACTOR 08/06/2022 6:42 AM FARM CONTRACTOR us Юлия CHARLES LAB BLOOD ORDERABLES Final Re sult Performing Organization Address City/State/[facility] Co de Phone Number [facility] [address] [facility] [place] [address] * Critical Care (08/06/2022 5:48 AM FARM CONTRACTOR) Narrative Wilfredo Jean-Baptiste MD - 08/06/2022 5:48 AM FARM CONTRACTOR Wilfredo Jean-Baptiste MD ? 08/06/2022 ??5:49 AM [...] plan with the patient's team and other medical/consumer experience consultant staff. This time was in addition [...] * ECG 12 lead (08/06/2022 5:34 AM FARM CONTRACTOR) Pathologist [facility] Ventricular Rate EKG/Min 66 BPM [facility] Atrial Rate 57 BPM [facility] QRS-Interval (MSEC) 118 ms [facility] QT-Interval (MSEC) 448 ms [facility] QTc 469 ms [facility] R [place] -50 degrees [facility] T [place] 103 degrees [facility] Diagnosis Atrial fibrillation with PVCs versus aberrancy Left anterior fascicular block Cannot rule out Inferior infarct , age undetermined ST & T wave abnormality, consider lateral ischemia Intraventricular conduction defect Abnormal ECG When compared with ECG of 06-AUG-2022 00:16, Criteria for septal infarction, age indeterminate is no longer seen [facility] 08/06/2022 5:34 AM FARM CONTRACTOR 08/06/2022 9:24 PM FARM CONTRACTOR Wilfredo Jean-Baptiste MD ECG ORDERABLES Final Result [facility] * (ABNORMAL) Troponin T high-sensitivity 4-hour (08/06/2022 4:45 AM FARM CONTRACTOR) Pathologist [facility] Trop T hs 23(H) <=22 ng/L [facility] Comment: Interpretive Data For further hscTnT resources including the diagnostic algorithm and an aid in interpretation, copy and paste this link: https://nrl.testcatalog.org/show/hsTrop Current Interpretive Data last revised 2020. Trop T hs delta 0 ng/L [facility] Trop T hs interp Insignificant [facility] Blood 08/06/2022 4:45 AM FARM CONTRACTOR 08/06/2022 4:51 AM FARM CONTRACTOR Юлия CHARLES LAB BLOOD ORDERABLES Final Re sult [facility] [address] [place] [address] Department [place] [address] * RI CRITICAL CARE ILL/INJURED PATIENT INIT 30-74 MIN (08/06/2022 4:18 AM FARM CONTRACTOR) Narrative Mario Small DO - 08/06/2022 4:18 AM FARM CONTRACTOR Mario Small DO ? 08/06/2022 ??4:19 AM [...] Troponin T high-sensitivity 2-hour (08/06/2022 2:36 AM FARM CONTRACTOR) Trop T hs 24(H) <=22 ng/L [facility] Comment: Interpretive Data For further hscTnT resources including the diagnostic algorithm and an aid in interpretation, copy and paste this link: https://nrl.testcatalog.org/show/hsTrop Current Interpretive Data last revised 2020. Trop T hs delta 1 ng/L [facility] Trop T hs interp Insignificant [facility] Blood 08/06/2022 2:36 AM FARM CONTRACTOR 08/06/2022 2:51 AM FARM CONTRACTOR us Юлия CHARLES LAB BLOOD ORDERABLES Final Re sult [facility] [address] [facility] Department [place] [address] * eGFR (08/06/2022 12:32 AM FARM CONTRACTOR) eGFR 63 mL/min/1. 73 m2 [facility] Comment: [...] reviewed 2021. Blood 08/06/2022 12:3 2 AM FARM CONTRACTOR 08/06/2022 12:36 AM FARM CONTRACTOR us Юлия CHARLES LAB BLOOD ORDERABLES Final Re sult [facility] [address] [facility] Department [place] [address] * Differential, auto (08/06/2022 12:32 AM FARM CONTRACTOR) Neutrophil abs 2.1 1.7 - 6.5 K/cumm [facility] Imm gran abs 0.0 0.0 - 0.1 K/cumm [facility] Lymphocyte abs 1.6 0.8 - 3.3 K/cumm [facility] Monocyte abs 0.8 0.2 - 0.8 K/cumm [facility] Eosinophil abs 0.3 0.0 - 0.5 K/cumm [facility] Basophil abs 0.1 0.0 - 0.1 K/cumm [facility] Neutrophil pct 43.3 % [facility] Comment: Interpretive Data Percent cell count reference ranges are not reported, since discordance with absolute values may lead to misinterpretation of CBC data. Current Interpretive Data was last revised on 2017. Imm gran pct 0.2 % [facility] Comment: Interpretive Data Percent cell count reference ranges are not reported, since discordance with absolute values may lead to misinterpretation of CBC data. Current Interpretive Data was last revised on 2017. Lymphocyte pct 32.5 % [facility] Comment: Interpretive Data Percent cell count reference ranges are not reported, since discordance with absolute values may lead to misinterpretation of CBC data. Current Interpretive Data was last revised on 2017. Monocyte pct 15.9 % [facility] Comment: Interpretive Data Percent cell count reference ranges are not reported, since discordance with absolute values may lead to misinterpretation of CBC data. Current Interpretive Data was last revised on 2017. Eosinophil pct 6.5 % [facility] Comment: Interpretive Data Percent cell count reference ranges are not reported, since discordance with absolute values may lead to misinterpretation of CBC data. Current Interpretive Data was last revised on 2017. Basophil pct 1.6 % [facility] Comment: Interpretive Data Percent cell count reference ranges are not reported, since discordance with absolute values may lead to misinterpretation of CBC data. Current Interpretive Data was last revised on 2017. Blood 08/06/2022 12:3 2 AM FARM CONTRACTOR 08/06/2022 12:36 AM FARM CONTRACTOR Юлия CHARLES LAB BLOOD ORDERABLES Final Re sult Performing Organization Address [facility] Co de Phone Number [address] [address] * (ABNORMAL) Influenza A/B, RSV, and COVID-19 PCR Nasopharyngeal (08/06/2022 12:32 AM FARM CONTRACTOR) Pathologist [facility] COVID-19 RNA Positive(A) Negative [facility] Influenza A RNA Negative Negative [facility] Influenza B RNA Negative Negative [facility] RSV RNA Negative Negative [facility] Comment: Interpretive data: This test is performed using the [employer] Xpert Xpress CoV-2/Flu/RSV plus assay. This is [...] revised 2021. Nasopharyngeal 08/06/2022 12 :32 AM FARM CONTRACTOR 08/06/2022 12:36 AM FARM CONTRACTOR Narrative [facility] - 08/06/2022 1:19 AM FARM CONTRACTOR Is the Patient experiencing symptoms consistent with COVID?->Yes Date of Symptom Onset->08/06/22 Reason for testing?->Symptomatic Юлия CHARLES LAB MICROBIOLOGY - GENERAL OR DERABLES Final Result Performing Organization Address [facility]/ZIP Co de Phone Number [address] [employer] [place] [address] * (ABNORMAL) Pro B-type natriuretic peptide (08/06/2022 12:32 AM FARM CONTRACTOR) [facility] NT-proBNP 2,211(H) <=450 pg/mL [facility] Comment: [...] Date: 2018. Blood 08/06/2022 12:3 2 AM FARM CONTRACTOR 08/06/2022 12:36 AM FARM CONTRACTOR Юлия CHARLES LAB BLOOD ORDERABLES Final Re sult Performing Organization Address [facility] Co de Phone Number [id number] [place] [address] * (ABNORMAL) Troponin T high-sensitivity series (baseline, 2hr, 4hr, 6hr) (08/06/2022 12:32 AM FARM CONTRACTOR) Pathologist [facility] Trop T hs 23(H) <=22 ng/L [facility] Comment: Interpretive Data For further hscTnT resources including the diagnostic algorithm and an aid in interpretation, copy and paste this link: https://nrl.testcatalog.org/show/hsTrop Current Interpretive Data last revised 2020. Blood 08/06/2022 12:3 2 AM FARM CONTRACTOR 08/06/2022 12:36 AM FARM CONTRACTOR Юлия CHARLES LAB BLOOD ORDERABLES Final Re sult Performing Organization Address [facility] de Phone Number [id number] [place] [address] * (ABNORMAL) Comprehensive metabolic panel (08/06/2022 12:32 AM FARM CONTRACTOR) [facility] Sodium 142 135 - 145 mmol/L [facility] Potassium, pl 3.7 3.3 - 4.9 mmol/L [facility] Chloride 107 97 - 110 mmol/L [facility] CO2 28 22 - 32 mmol/L [facility] Anion gap 7 2 - 15 mmol/L [facility] BUN 30(H) 8 - 25 mg/dL [facility] Creatinine 1.20 0.80 - 1.30 mg/dL [facility] Glucose 71 70 - 199 mg/dL [facility] Comment: Interpretive Data Fasting glucose >/= 126 [...] 2022. Calcium 8.9 8.5 - 10.3 mg/dL [facility] Bilirubin, total 0.4 0.1 - 1.2 mg/dL [facility] Protein, pl 6.4(L) 6.5 - 8.5 g/dL [facility] Albumin 4.0 3.5 - 5.0 g/dL [facility] Alk phos 109 40 - 130 Units/L [facility] ALT 14 7 - 55 Units/L [facility] AST 16 10 - 50 Units/L [facility] Blood 08/06/2022 12:3 2 AM FARM CONTRACTOR 08/06/2022 12:36 AM FARM CONTRACTOR us Юлия CHARLES LAB BLOOD ORDERABLES Final Re sult [address] Department [place] [address] * (ABNORMAL) CBC with auto differential (08/06/2022 12:32 AM FARM CONTRACTOR) WBC 4.9 3.8 - 9.9 K/cumm [facility] Hgb 14.3 13.0 - 17.5 g/dL [facility] Hct 44.5 38.9 - 50.3 % [facility] Plt 161 150 - 400 K/cumm [facility] MPV 11.4 9.1 - 12.3 fL [facility] RBC 5.27 4.30 - 5.80 M/cumm [facility] MCV 84.4 81.3 - 96.4 fL [facility] MCH 27.1 27.1 - 33.3 pg [facility] MCHC 32.1(L) 32.3 - 35.7 g/dL [facility] RDW CV 14.0 11.1 - 14.9 % [facility] RDW SD 43.0 35.7 - 48.1 fL [facility] NRBC abs 0.00 0.00 - 0.01 K/cumm [facility] Blood 08/06/2022 12:3 2 AM FARM CONTRACTOR 08/06/2022 12:36 AM FARM CONTRACTOR Юлия CHARLES LAB BLOOD ORDERABLES Final Re sult [facility] [address] [facility] Department [place] [address] * ECG 12 lead (08/06/2022 12:16 AM FARM CONTRACTOR) Ventricular Rate EKG/Min 48 BPM [facility] Atrial Rate 40 BPM [facility] QRS-Interval (MSEC) 116 ms [facility] QT-Interval (MSEC) 456 ms [facility] QTc 407 ms [facility] R [place] -40 degrees [facility] T [place] 130 degrees [facility] Diagnosis Atrial fibrillation with slow ventricular response with premature ventricular or aberrantly conducted complexes Left axis deviation Left ventricular hypertrophy with QRS widening Septal infarct , age undetermined Intraventricula r conduction defect ST & T wave abnormality, consider lateral ischemia Abnormal ECG When compared with ECG of 15-SEP-2016 14:55, Significant changes have occurred [facility] [facility] 08/06/2022 12:1 6 AM FARM CONTRACTOR 08/06/2022 9:23 PM FARM CONTRACTOR Юлия CHARLES ECG ORDERABLES Final Result Performing Organization Address City/[facility]/ZIP Co de Phone Number [facility] * XR Chest 1 View (08/06/2022 12:15 AM FARM CONTRACTOR) Anatomical Region Laterality Modality Body, Chest N/A Computed Radiogr aphy 08/06/2022 12:5 2 AM FARM CONTRACTOR Narrative 08/06/2022 12:53 AM FARM CONTRACTOR EXAM DESCRIPTION: ?? 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 Generalized weakness Mixed [...] Mon08/09/22 at 2000 Given 08/10/2022 4:11 AM FARM CONTRACTOR 650 mg acetaminophen (TYLENOL) tablet 975 mg 975 mg (rounded from 1,000 mg), oral, Every 8 hours scheduled, First dose on Mon08/08/22 at 2300 Given 08/09/2022 3:25 PM FARM CONTRACTOR 975 mg Given 08/09/2022 5:39 AM FARM CONTRACTOR 975 mg Given 08/08/2022 11:09 PM FARM CONTRACTOR 975 mg albuterol HFA (PROVENTIL HFA,VENTOLIN HFA,PROAIR HFA) 90 mcg/actuation inhaler 2 puff 2 puff, inhalation, Every 4 hours PRN (respiratory manager), wheezing, shortness of breath, Starting on Mon08/07/22 at 1037 Given 08/08/2022 4:00 PM FARM CONTRACTOR 2 puffs ALPRAZolam (XANAX) tablet 0.5 mg 0.5 mg, oral, Once, On Mon08/10/22 at 1845, For 1 dose Given 08/10/2022 6:13 PM FARM CONTRACTOR 0.5 mg amLODIPine (NORVASC) tablet 2.5 mg 2.5 mg, oral, Daily, First dose on Mon08/10/22 at 1845 Given 08/11/2022 9:21 AM FARM CONTRACTOR 2.5 mg Given 08/10/2022 6:13 PM FARM CONTRACTOR 2.5 mg apixaban (ELIQUIS) tablet 5 mg 5 mg, oral, Every 12 hours scheduled, First dose on 08/06/22 at 1215, Nurse to discontinue heparin infusion order and associated bolus at first administration of apixaban using 'order condition met' order source, Indications: atrial fibrillationIndications:atrial fibrillation Given 08/11/2022 9:15 AM FARM CONTRACTOR 5 mg Given 08/10/2022 9:06 PM FARM CONTRACTOR 5 mg Given 08/10/2022 9:11 AM FARM CONTRACTOR 5 mg aspirin enteric coated tablet 81 mg 81 mg, oral, Daily, First dose on Mon08/06/22 at 0900, Do not crush, chew, cut, dissolve, open or otherwise manipulate tablet/capsule. Given 08/11/2022 9:14 AM FARM CONTRACTOR 81 mg Given 08/10/2022 9:12 AM FARM CONTRACTOR 81 mg Given 08/09/2022 9:06 AM FARM CONTRACTOR 81 mg atorvastatin (LIPITOR) tablet 40 mg 40 mg, oral, Daily, First dose on Mon08/06/22 at 0900 Given 08/11/2022 9:21 AM FARM CONTRACTOR 40 mg Given 08/10/2022 9:11 AM FARM CONTRACTOR 40 mg Given 08/09/2022 9:05 AM FARM CONTRACTOR 40 mg atropine injection 0.4 mg 0.4 mg, intravenous, Administer over 1 Minutes, Once, On Mon08/06/22 at 0109, For 1 dose Given 08/06/2022 1:14 AM FARM CONTRACTOR 0.4 mg atropine injection 0.4 mg 0.4 mg, intravenous, Administer over 1 Minutes, Once, On Mon08/06/22 at 0337, For 1 dose Given 08/06/2022 4:38 AM FARM CONTRACTOR 0.4 mg cefepime (MAXIPIME) 1,000 mg in sodium chloride 0.9% 100 mL IVPB 1,000 mg, intravenous, at 200 mL/hr, Administer over 30 Minutes, Every 8 hours scheduled, First dose on Mon08/09/22 at 0600, Mini-Bag Plus bag, Indications: Pneumonia, Hospital AcquiredIndications:Pneumonia, Hospital Acquired New Bag 08/10/2022 9:06 PM FARM CONTRACTOR 1,000 mg 200 mL/hr New Bag 08/10/2022 4:48 PM FARM CONTRACTOR 1,000 mg 200 mL/hr New Bag 08/10/2022 5:30 AM FARM CONTRACTOR 1,000 mg 200 mL/hr cefepime (MAXIPIME) 2,000 mg in sodium chloride 0.9% 100 mL IVPB 2,000 mg, intravenous, at 200 mL/hr, Administer over 30 Minutes, Once, On Mon08/08/22 at 2200, For 1 dose, Mini-Bag Plus bag, Indications: Pneumonia, Hospital AcquiredIndications:Pneumonia, Hospital Acquired New Bag 08/08/2022 9:51 PM FARM CONTRACTOR 2,000 mg 200 mL/hr finasteride (PROSCAR) tablet 5 mg 5 mg, oral, Daily, First dose on 08/06/22 at 0900, Do not crush, break, or open. Given 08/11/2022 9:26 AM FARM CONTRACTOR 5 mg Given 08/10/2022 9:18 AM FARM CONTRACTOR 5 mg Given 08/09/2022 9:06 AM FARM CONTRACTOR 5 mg hydrALAZINE (APRESOLINE) injection 10 mg 10 mg, intravenous, Administer over 2 Minutes, Every 4 hours PRN, high blood pressure, SBP >160, Starting on 08/06/22 at 0541 Given 08/07/2022 3:07 PM FARM CONTRACTOR 10 mg Given 08/06/2022 7:43 AM FARM CONTRACTOR 10 mg hydrALAZINE (APRESOLINE) injection 20 mg 20 mg, intravenous, Administer over 2 Minutes, Every 4 hours PRN, high blood pressure, SBP >160, Starting on Mon08/08/22 at 0931 Given 08/11/2022 9:26 AM FARM CONTRACTOR 20 mg Given 08/10/2022 4:57 PM FARM CONTRACTOR 20 mg Given 08/10/2022 4:08 AM FARM CONTRACTOR 20 mg HYDROcodone-acetaminophen (NORCO) 5-325 mg per tablet 1 tablet 1 tablet, oral, Every 4 hours PRN, 2nd line for pain, Starting on Mon08/10/22 at 1736, Indications: PainIndications:Pain Given 08/10/2022 5:52 PM FARM CONTRACTOR 1 tablet Lactated Ringer's (LR) infusion 50 mL/hr, intravenous, Continuous, Starting on 08/06/22 at 0615 New Bag 08/06/2022 6:07 AM FARM CONTRACTOR 50 mL/hr 50 mL/hr Lactated Ringer's (LR) infusion 75 mL/hr, intravenous, Continuous, Starting on Mon08/10/22 at 0830, For 13 hours, Only for 1L New Bag 08/10/2022 9:18 AM FARM CONTRACTOR 75 mL/hr 75 mL/hr lidocaine (LIDODERM) 5 % patch 1 patch 1 patch, transdermal, Administer over 12 Hours, Daily, First dose on Mon08/10/22 at 1815, Do not cover the holes on the top side of the patch., Apply to affected area: back Medication Applied 08/11/2022 9:13 AM FARM CONTRACTOR 1 patch Back Medication Applied 08/10/2022 6:34 PM FARM CONTRACTOR 1 patch Back lisinopriL (PRINIVIL,ZESTRIL) tablet 10 mg 10 mg, oral, Daily, First dose on 08/06/22 at 1200 Given 08/07/2022 9:22 AM FARM CONTRACTOR 10 mg Given 08/06/2022 12:21 PM FARM CONTRACTOR 10 mg lisinopriL (PRINIVIL,ZESTRIL) tablet 10 mg 10 mg, oral, Once, On 08/07/22 at 1245, For 1 dose Given 08/07/2022 12:54 PM FARM CONTRACTOR 10 mg lisinopriL (PRINIVIL,ZESTRIL) tablet 20 mg 20 mg, oral, Daily, First dose (after last modification) on 08/08/22 at 0900, On hold since Mon08/10/2022 at 0747 until manually unheld Given 08/09/2022 9:05 AM FARM CONTRACTOR 20 mg Given 08/08/2022 8:41 AM FARM CONTRACTOR 20 mg magnesium oxide (MAG-OX) tablet 400 mg 400 mg, oral, 2 times daily, First dose on 08/07/22 at 1230, 1 tablet = Magnesium oxide 400 mg = 241.3 mg elemental magnesium, Indications: hypomagnesemiaIndications:hypomagnesemia Given 08/11/2022 9:15 AM FARM CONTRACTOR 400 mg Given 08/10/2022 9:05 PM FARM CONTRACTOR 400 mg Given 08/10/2022 9:11 AM FARM CONTRACTOR 400 mg metoprolol XL (TOPROL-XL) extended release tablet 25 mg 25 mg, oral, Daily, First dose on 08/07/22 at 1230, Tablets that are scored may be split, but do not crush, chew, dissolve, open or otherwise manipulate tablet/capsule. Given 08/11/2022 9:21 AM FARM CONTRACTOR 25 m g Given 08/10/2022 9:11 AM FARM CONTRACTOR 25 mg Given 08/09/2022 9:06 AM FARM CONTRACTOR [address] (PROTONIX) extended release tablet 40 mg 40 mg, oral, Daily, First dose on 08/06/22 at 0900, Do not crush, chew, cut, dissolve, open or otherwise manipulate tablet/capsule., Indications: Treatment of Non-Bleeding Gastric DisorderIndications:Treatment of Non-Bleeding Gastric Disorder Given 08/11/2022 9:14 AM FARM CONTRACTOR 40 mg Given 08/10/2022 9:11 AM FARM CONTRACTOR 40 mg Given 08/09/2022 9:05 AM FARM CONTRACTOR 40 mg potassium chloride ER (KLOR-CON) extended release tablet 20 mEq 20 mEq, oral, Once, On Mon08/08/22 at 1100, For 1 dose, Do not crush, chew, cut, dissolve, open or otherwise manipulate tablet/capsule. Given 08/08/2022 10:48 AM FARM CONTRACTOR 20 mEq potassium chloride ER (KLOR-CON) extended release tablet 40 mEq 40 mEq, oral, Once, On 08/06/22 at 1145, For 1 dose, Do not crush, chew, cut, dissolve, open or otherwise manipulate tablet/capsule. Given 08/06/2022 12:21 PM FARM CONTRACTOR 40 mEq potassium chloride ER (KLOR-CON) extended release tablet 40 mEq 40 mEq, oral, Once, On Mon08/07/22 at 1230, For 1 dose, Do not crush, chew, cut, dissolve, open or otherwise manipulate tablet/capsule. Given 08/07/2022 12:54 PM FARM CONTRACTOR 40 mEq ramelteon (ROZEREM) tablet 8 mg 8 mg, oral, Nightly PRN, sleep, Starting on Mon08/09/22 at 1959, Indications: Sleep-Onset InsomniaIndications:Sleep-Onset Insomnia Given 08/10/2022 9:06 PM FARM CONTRACTOR 8 m g Given 08/09/2022 9:06 PM FARM CONTRACTOR 8 mg vancomycin 1,000 mg/250 mL in sodium chloride 0.9% (premix) 1,000 mg 1,000 mg (rounded from 1,011 mg = 15 mg/kg ? 67.4 kg), intravenous, Administer over 60 Minutes, Once, On Mon08/08/22 at 2200, For 1 dose, Indications: Pneumonia, Hospital AcquiredIndications:Pneumonia, Hospital Acquired New Bag 08/08/2022 10:24 PM FARM CONTRACTOR 1,000 mg vancomycin 750 mg/250 mL in sodium chloride 0.9% (premix) 750 mg 750 mg, intravenous, Administer over 60 Minutes, Every 24 hours, First dose on Mon08/09/22 at 2100, Indications: Pneumonia, Hospital AcquiredIndications:Pneumonia, Hospital Acquired New Bag 08/09/2022 9:05 PM FARM CONTRACTOR 750 mg documented in this encounter Discontinued [...] Recently Administered Medications Times are shown in FARM CONTRACTOR. Scheduled Medication Order 08/09/2022 08/10/2022 08/11/2022 acetaminophen [...] Rogel RN) 0915 (Given - Provider: Padma Arshad, RN) aspirin enteric coated tablet 81 [...] 1999 (Lab Draw - Provider: Trey Rushing [facility] - Comment: Send level prior to administration.) [...] 2 puff, inhalation, Every 4 hours PRN (respiratory manager), wheezing, shortness of breath, Starting on Mon08/07/22 [...] COVID: Suspected 08/06/2022 08/06/2022 08/06/2022 1:19 AM FARM CONTRACTOR COVID19 Comment:Airborne + Contact precautions. Gown, Gloves, N95, eye protection or goggles. Precautions 08/16/22. Contact Network Intern if patient worsens. SUE Baldwin 08/12/22 08/06/2022 08/06/2022 08/16/2022 3:[address] Coronavirus, contact + dropl et Comment:Negative for coronavirus 08/06/2022 08/06/2022 023 12:29 PM FARM CONTRACTOR documented as of this encounter Care Teams Hook And Eye Sewing Machine Operator Relationship Specialty Start Date End Date Christine Herzog MD [address] [place] [address] PCP - General Internal Medicine 12/02/21 Trey Pinedo MD [address] [place] [address] Consulting Physician Neurology 05/09/19 Albert Craft MD [address] [place] [address] Consulting Physician Gastroenterology 03/11/22 Chintan Figueroa MD [address] [place] [address] [place] [address] Consulting Physician Hematology and Oncology 03/11/22 Jameel Bloom DPM [address] [place] [address] Consulting Physician Orthotics 03/11/22 Gadiel Genao MD [address] [place] [address] Surgeon Vascular Surgery 03/11/22 documented as of this encounter
--- OUTSIDE RECORDS SUMMARY | 2024-06-18 19:11 | XMS_ITS | Encounter Summary ---
Author Organization [facility] Home Care Servic es Address [address] [place] [address] Phone Care Team Providers Care Mate Fourth Name Role Phone Trey Pinedo MD Unavailable [phone] Christine Herzog MD Primary Care Provide r Albert Craft MD Unavailable [phone] Chintan Figueroa MD Unavailable [phone] Jameel Bloom DPM Unavailable [phone] Gadiel Genao MD Unavailable [phone] Sepideh Hi RN Unavailable [phone] Reason for Visit * Reason Comments Weakness - Generalized * Auth/Cert Specialty Diagnoses / Procedures Referred By Contac t Referred To Contact Referral ID Status Reason Start Date Expiration Date Visits Re quested Visits Authorized [id number] 1 1 Encounter Details Date Type Department Care Team (Late st Contact Info) Description 08/19/2022 9:00 AM INSOLE COVERER Home Care Visit [facility] Home Health - [address] [place] [address] Marianne Zhang, SAUL PT HOME VISIT Social [...] file Legal Sex Male 6:00 PM INSOLE COVERER Gender Identity Not on file Sexual Orientation Straight 01/23/2021 10 :16 PM CDT documented as of this encounter Last Filed Vital Signs Vital Sign Reading Time Taken Comments Blood Pressure 138/72 08/19/2022 9:50 AM INSOLE COVERER Pulse 56 08/19/2022 9:50 AM INSOLE COVERER Temperature 36.1 ??C (96.9 ??F) 08/19/2022 9:50 AM CS T Respiratory Rate 18 08/19/2022 9:50 AM INSOLE COVERER Oxygen Saturation 94% 08/19/2022 9:50 AM INSOLE COVERER Inhaled Oxygen Concentration - - Weight - [...] present and all are agreeable with poc LE COVERER documented in this encounter Plan of Treatment Not on file documented as of this encounter Goals Goal Patient Goal Type Associated Problems Recent Progress Patient-Stated? Author GULSHAN General Goal - Patient schedules and keeps appointments with all recommended providers ACO Care Management On track(2022 11:14 AM INSOLE COVERER) No Sepideh Hi RN Note: Problem: Potential [...] home health visit Disciplines: SN, PT, OT, ORAL SURGERY TECHNICIAN, DIAMOND POWDER TECHNICIAN, Skilled Disciplines Monitor patient's vital signs every [...] visit during episode of care Description: Home industrial automation engineer to measure vital signs during every home [...] comments documented in this encounter Care Teams Mate Fourth Relationship Specialty Start Date End Date Christine Herzog MD [address] [place] [address] [address] [place] [address] PCP - General Internal Medicine 12/02/21 Trey Pinedo MD [address] [place] [address] [address] [place] [address] Consulting Physician Neurology 05/09/19 Albert Craft MD [address] [place] [address] [address] [place] [address] Consulting Physician Gastroenterology 03/11/22 Chintan Figueroa MD [address] [place] [address] [address] [place] [address] Consulting Physician Hematology and Oncology 03/11/22 Jameel Bloom DPM [address] [place] [address] Consulting Physician Orthotics 03/11/22 Gadiel Genao MD [address] [place] [address] Surgeon Vascular Surgery 03/11/22 Sepideh Hi RN [address] [place] [address] [address] [place] [address] Tube Washer 08/12/22 09/01/22 documented as of this encounter
--- OUTSIDE RECORDS SUMMARY | 2024-06-18 19:11 | XMS_ITS | Encounter Summary ---
Author Organization [facility] Address [address] [place] [address] Phone Care Team Providers Care Skylights Assembler Name Role Phone Trey Pinedo MD Unavailable [phone] Christine Herzog MD Primary Care Provide r Albert Craft MD Unavailable [phone] Chintan Figueroa MD Unavailable [phone] Jameel Bloom DPM Unavailable [phone] Gadiel Genao MD Unavailable [phone] Reason for Visit * Reason Onset Date Comments Call Back 08/04/2022 Appointment 08/04/2022 Encounter Details Date Type Department Care Team (Late st Contact Info) Description 08/04/2022 Telephone [facility] [address] [facility] [address] [place] [address] [place] [id number] Kristin Pena Call Back; Appointment Social History [...] file Legal Sex Male 6:00 PM SUPERVISOR MOTOR 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 Hayes. Appointment was already rescheduled at the time of call back. RVISOR MOTOR VEHICLE ASSEMBLY documented in this encounter Plan of Treatment Not on file documented as of this encounter Visit Diagnoses Not on filedocumented in this encounter Care Teams Skylights Assembler Relationship Specialty Start Date End Date Christine Herzog MD [address] [facility] [address] [place] [address] PCP - General Internal Medicine 12/02/21 Trey Pinedo MD [address] [place] [address] [address] [place] [address] Consulting Physician Neurology 05/09/19 Albert Craft MD [address] [facility] [address] [place] [address] Consulting Physician Gastroenterology 03/11/22 Chintan Figueroa MD [address] [place] [address] [address] [place] [address] Consulting Physician Hematology and Oncology 03/11/22 Jameel Bloom DPM [address] [place] [address] Consulting Physician Orthotics 03/11/22 Gadiel Genao MD [address] [place] [address] Surgeon Vascular Surgery 03/11/22 documented as of this encounter
--- OUTSIDE RECORDS SUMMARY | 2024-06-18 19:11 | XMS_ITS | Encounter Summary ---
Author Organization [facility] Address [address] [address] Care Team Providers Care Dull Coat Mill Operator Name Role Phone Trey Pinedo MD Unavailable [phone] Christine Herzog MD Primary Care Provide r Albert Craft MD Unavailable [phone] Chintan Figueroa MD Unavailable [phone] Jameel Bloom DPM Unavailable [phone] Gadiel Genao MD Unavailable Sepideh Hi RN Unavailable Encounter Details Date Type Department Care Team (Late st Contact Info) Description 08/13/2022 Orders Only [facility] Accountable Care Organization [address] [place] [address] Ana Quintana, SUE [address] [place] [address] [address] [place] [address] Social History Tobacco Use Types Packs/Day Years [...] any clubs o r organizations such as pentecostalism groups, unions, fraternal or athletic groups, or [...] on file Legal 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 Author GULSHAN General Goal - Patient schedules and keeps appointments with all recommended providers ACO Care Management On track(2022 11:14 AM LUNCH TRUCK OPERATOR) Sepideh Guo, SUE Note: Problem: Potential [...] eye protection or goggles. Precautions 08/16/22. Contact Director Toxicology if patient worsens. SUE Baldwin 08/12/22 08/06/2022 08/06/2022 08/16/2022 3:[address] documented as of this encounter Care Teams Dull Coat Mill Operator Relationship Specialty Start Date End Date Christnie Herzog MD [address] [facility] [address] [place] [address] PCP - General Internal Medicine 12/02/21 Trey Pinedo MD [address] [facility] [address] [place] [address] Consulting Physician Neurology 05/09/19 Albert Craft MD [address] [place] [address] [address] [place] [address] Consulting Physician Gastroenterology 03/11/22 Chintan Figueroa MD [address] [place] [address] [address] [place] [address] Consulting Physician Hematology and Oncology 03/11/22 Jameel Bloom DPM [address] [place] [address] Consulting Physician Orthotics 03/11/22 Gadiel Genao MD [address] [place] [address] Surgeon Vascular Surgery 03/11/22 Sepideh Hi RN [address] [place] [address] [address] [place] [address] Laborer Concrete Plant 08/12/22 09/01/22 documented as of this encounter
--- OUTSIDE RECORDS SUMMARY | 2024-06-18 19:11 | XMS_ITS | Encounter Summary ---
Author Organization [facility] Home Care Servic es Address [address] [place] [address] Phone Care Team Providers Care Rn L And D Name Role Phone Trey Pinedo MD Unavailable [phone] Christine Herzog MD Primary Care Provide r Albert Craft MD Unavailable [phone] Chintan Figueroa MD Unavailable [phone] Jameel Bloom DPM Unavailable [phone] Gadiel Genao MD Unavailable [phone] Sepideh Hi RN Unavailable [phone] Reason for Visit * Auth/Cert Specialty Diagnoses / Procedures Referred By Contac t Referred To Contact Referral ID Status Reason Start Date Expiration Date Visits Re quested Visits Authorized [id number] 1 1 Encounter Details Date Type Department Care Team (Latest Contact Info) Description 08/17/2022 12:00 PM STRAPPING MACHINE TENDER Home Care Visit [facility] [place] [address] [address] [place] [address] Kaykay Silva, PT PT INITIAL EVALUATION Social [...] you attend chur ch or religion services? Never 08/12/2022 Do you belong to [...] on file Legal Sex Male 6:00 PM STRAPPING MACHINE TENDER Gender Identity Not on file Sexual Orientation Straight 01/23/2021 10 :16 PM CDT documented as of this encounter Last Filed Vital Signs Vital Sign Reading Time Taken Comments Blood Pressure 138/72 08/17/2022 11:59 AM STRAPPING MACHINE TENDER Pulse 60 08/17/2022 11:59 AM STRAPPING MACHINE TENDER Temperature 36.1 ??C (97 ??F) 08/17/2022 11:59 AM STRAPPING MACHINE TENDER Respiratory Rate 18 08/17/2022 11:59 AM STRAPPING MACHINE TENDER Oxygen Saturation 96% 08/17/2022 11:59 AM STRAPPING MACHINE TENDER Inhaled Oxygen Concentration - - Weight - - Height - - Body Mass Index - - documented in this encounter Miscellaneous Notes * Home Health Visit Narrative - Kaykay Silva, PT - 08/17/2022 11:52 AM STRAPPING MACHINE TENDER S: Pt is a 76yo M referred to HH SN, PT, OT svcs following hospitalization at [facility] 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 PPING MACHINE TENDER documented in this encounter Plan of Treatment Not on file documented as of this encounter Goals Goal Patient Goal Type Associated Problems Recent Progress Patient-Stated? Author GULSHAN General Goal - Patient schedules and keeps appointments with all recommended providers ACO Care Management On track(2022 11:14 AM STRAPPING MACHINE TENDER) Sepideh Guo, SUE Note: Problem: Potential [...] home health visit Disciplines: SN, PT, OT, LIVE IN COMPANION, PATIENT MONITOR, Skilled Disciplines Monitor patient's vital signs [...] visit during episode of care Description: Home retail support associate to measure vital signs during every home [...] comments documented in this encounter Care Teams Rn L And D Relationship Specialty Start Date End Date Christien Herzog MD [address] [facility] [address] [place] [address] PCP - General Internal Medicine 12/02/21 Trey Pinedo MD [address] [place] [address] [address] [place] [address] Consulting Physician Neurology 05/09/19 Albert Craft MD [address] [facility] [address] [place] [address] Consulting Physician Gastroenterology 03/11/22 Chintan Figueroa MD [address] [place] [address] [address] [place] [address] Consulting Physician Hematology and Oncology 03/11/22 Jameel Bloom DPM [address] [place] [address] Consulting Physician Orthotics 03/11/22 Gadiel Genao MD [address] [place] [address] Surgeon Vascular Surgery 03/11/22 Sepideh Hi RN [address] [place] [address] [address] [place] [address] Seafood Harvester 08/12/22 09/01/22 documented as of this encounter
--- OUTSIDE RECORDS SUMMARY | 2024-06-18 19:12 | XMS_ITS | Encounter Summary ---
Author Organization [facility] Address [address] [place] [address] Care Team Providers Care Cane Loader Name Role Phone Wesley Em MD Primary Care Provider [phone] Trey Pinedo MD Unavailable [phone] Encounter Details Date Type Department Care Team (Late st Contact Info) Description 11/03/2021 Telephone [facility] [address] [facility] [address] [place] [address] Wesley Em MD [address] [place] [address] [address] [place] [address] Social History Tobacco Use Types [...] on file Legal Sex Male 6:00 PM WOOL GROWER Gender Identity Not on file Sexual Orientation Straight 01/23/2021 10 :16 PM CDT documented as of this encounter Miscellaneous Notes * Telephone Encounter - Salena Leal MA - 11/03/2021 4:04 PM CDT Opened in error documented in this encounter Plan of Treatment Not on file documented as of this encounter Visit Diagnoses Not on filedocumented in this encounter Care Teams Cane Loader Relationship Specialty Start Date End Date Wesley Em MD PCP - General 09/30/16 12/01/21 Trey Pinedo MD [address] [place] [address] [address] [place] [address] Consulting Physician Neurology 05/09/19 documented as of this encounter
--- OUTSIDE RECORDS SUMMARY | 2024-06-18 19:12 | XMS_ITS | Encounter Summary ---
Author Organization [facility] Address [address] [place] [address] Care Team Providers Care Transportation Program Director Name Role Phone Wesley Em MD Primary Care Provider [phone] Trey Pinedo MD Unavailable [phone] Reason for Visit * Reason Comments Phlebotomy Encounter Details Date Type Department Care Team (Late st Contact Info) Description 2021 3:30 PM CDT Infusion [facility] [address] 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
--- OUTSIDE RECORDS SUMMARY | 2024-06-18 19:12 | XMS_ITS | Encounter Summary ---
Author Organization [facility] Address [address] [place] [address] Care Team Providers Care Methodologist Name Role Phone Trey Pinedo MD Unavailable [phone] Christine Herzog MD Primary Care Provide r Reason for Visit * Reason Comments Fall Weakness - Generalized Encounter Details Date Type Department Care Team (Latest Contact Info) Description 12/08/2021 8:31 PM CDT - 12/10/2021 3:40 PM CDT Hospital Encounter [facility] [address] [place] [address] Prema Zaman MD [address] [place] [address] [address] [place] [address] Galina Chambers MD [address] [place] [address] [place] [address] Arlene Alvarado MD [address] [place] [address] [address] [place] [address] Closed fracture of one rib of right [...] file 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 Gender Identity Not on file [...] - HYPERLIPIDEMIA, UNSPECIFIED Atherosclerotic heart disease of [place] coronary artery without angina pectoris - ATHEROSCLEROTIC HEART DISEASE OF [place] CORONARY ARTERY WITHOUT ANGINA PECTORIS Fall on [...] ALLERGY STATUS TO OTHER ANTIBIOTIC AGENTS Other snf (current) drug therapy - OTHER DETENTION (CURRENT) DRUG 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) use of antithrombotics/antiplatelets - UX LEAD (CURRENT) USE OF ANTITHROMBOTICS/ANTIPLATELETS intermediate (current) use of aspirin - DETENTION (CURRENT) USE OF ASPIRIN Body mass index (BMI) 27.0-27.9, adult - BODY MASS INDEX [BMI] 27.0-27.9, ADULT documented in this encounter Discharge Summaries * Arlene Alvarado MD - 12/10/2021 12:28 PM CDT Inpatient Discharge Summary BRIEF OVERVIEW Admitting Provider: Galina Chambers MD Discharge Provider: Arlene Alvarado MD Primary Care Physician at Discharge: Christine Herzog MD [phone] Admission Date: 12/08/2021 Discharge Date: 12/10/2021 Admission Location: [facility] Problems/Diagnoses: Principal Problem: Closed fracture of one rib of right side Active Problems: Hyperlipidemia Essential hypertension Coronary artery disease involving [place] coronary artery of [place] heart without angina pectoris Closed fracture of [...] and prn oxycodone. Participated well with PT. comp field case manager consulted, and able to have [...] Rate: 60 bpm RR Interval: 993 msec NE Interval: 239 msec QRS Duration: 121 msec QT Interval: 468 msec QTC Interval: 469 msec P-R-T [place]: -39 - -55 - 77 degrees SINUS [...] Ysabel Bauer M.D. TB: TB Report ID: [id number] Reading Location: [id number] ?? CT Head WO Contrast ?? Result [...] BERNIE T: 12/08/2021 9:51 PM Report ID: [id number] Reading Location: [id number] ?? CT Cervical Spine WO Contrast ?? [...] Trey Siegel M.D. ML: ML Report ID: [id number] Reading Location: [place] [address] [address] Chest Abdomen Pelvis WO Contrast [...] Trey Siegel M.D. ML: ML Report ID: [id number] Reading Location: [place] [address] ?? Discharge Details Physical Exam at Discharge: [...] 12:45 PM [facility] 1 [facility] CC [facility] Medical 12/22/2021 1:00 PM [facility] INFUSION [facility]-CHAIR 1 [facility] Medical 02/23/2022 12:45 PM [facility] 1 [facility] CC PHYS [facility] Medical 02/23/2022 1:00 PM [facility] INFUSION [facility]-CHAIR 1 [facility] Medical 03/10/2022 4:00 PM Christine Herzog MD [facility] 04/27/2022 10:15 AM [facility] 1 [facility] CC [facility] Medical 04/27/2022 10:45 AM Chintan Figueroa MD ONC [facility] B134 [facility] Oncology 04/27/2022 11:00 AM [facility] INFUSION [facility]-CHAIR 1 [facility] C[facility] Medical 05/24/2022 2:00 PM [facility] BCT4 BJ N CT [facility] Main IMG 05/24/2022 2:30 PM [facility] PORTER VASLAB CAM ROOM C VASLAB CAM8D PORTER 05/24/2022 3:30 PM Gadiel Genao MD VASC CAM 8A PORTER Contact Information for Follow-ups Christine Herzog MD Specialty: Family Medicine Relationship: PCP - General 2 [facility] [place] [address] Next Steps: Follow up on 12/15/2021 Instructions: 3:30 PM documented in this encounter Discharge Instructions * Attachments The following attachments cannot be sent through Care Everywhere. * Lidocaine Patch (On the skin) (Egyptian) * Oxycodone/Acetaminophen (By mouth) (Egyptian) documented in this encounter Medications at Time [...] this encounter Progress Notes * Keaton Anderson, PLUG OVERWRAP MACHINE TENDER - 12/10/2021 2:50 PM CDT Physical Therapy [...] End Date End Date PT LTG - [facility] 2 12/09/21 12/16/21 -- Goal Details: Pt to require/be indep>sba with all transfers consistently to increase functional mobility and safety. Goal Start Date Expected End Date End Date PT LTG - [facility] 3 12/09/21 12/16/21 -- Goal Details: Pt [...] 9:34 AM CDT Patient was accepted with [facility] for PT and OT. Start of care date of 12/13 or 12/14. [facility]: [phone] * Gadiel Biggs, PT - 12/09/2021 5:33 [...] is falling bwd Prior Function Level of Young Independent with ADLs;Independent functional transfers;Independent with ambulation [...] (from Physical Therapy) Active Problems Problem: PT [facility] Start Date: 12/09/21 Goal Start Date Expected End Date End Date PT [facility] 1 12/09/21 12/16/21 -- Goal Details: Pt to require/be indep with bed mobility consistently to increase functional mobility. Goal Start Date Expected End Date End Date PT [facility] 2 12/09/21 12/16/21 -- Goal [...] Equipment Wheeled walker Prior Function Level of Young Needs assistance with ADLs;Independent functional transfers;Independent with [...] Alvarado MD - 12/09/2021 12:30 PM CDT [facility] Adult Hospitalist Service History and Physical Patient Name: Villa Zuniga Patient : 1945 Age/Sex: 76 y.o. male Room/Bed: [place] [id number] Admission Date/Time: 12/08/2021 8:31 PM Date: 12/09/2021 Time: 6:33 PM Primary Care Physician: Christine Herzog MD PCP Office Location: [address] [place] [address] [place] [address] PCP Chief Complaint: Fall, right flank pain, [...] Rate: 60 bpm RR Interval: 993 msec NE Interval: 239 msec QRS Duration: 121 msec QT Interval: 468 msec QTC Interval: 469 msec P-R-T [place]: -39 - -55 - 77 degrees SINUS [...] Ysabel Bauer M.D. TB: TB Report ID: [id number] Reading Location: [id number] CT Head WO Contrast Result Date: 12/08/2021 [...] Trey Siegel M.D. ML: ML Report ID: [id number] Reading Location: [place] [address] CT Cervical Spine WO Contrast Result Date: [...] Trey Siegel M.D. ML: ML Report ID: [id number] Reading Location: [place] [address] CT Chest Abdomen Pelvis WO Contrast Result [...] Trey Siegel M.D. ML: ML Report ID: [id number] Reading Location: [place] [address] ASSESSMENT AND PLAN: Closed fracture of one rib of right side Secondary to fall. Patient reports pain is well controlled at this time Will continue lidocaine patches for pain control, continue physical therapy Coronary artery disease involving [place] coronary artery of [place] heart without angina pectoris Stable. No chest [...] have home PT rather than outpatient PT comp field case manager consulted for the same. Continue PT while in the hospital. DVT PPx Lovenox Expected LOS: More than 2 midnights MDM: Moderate complexity Arlene Alvarado MD Internal Medicine - Hospitalist [facility] - Adult Hospitalist Service CC: Christine Herzog MD documented in this encounter Nursing Notes * Blaire Mariscal RN - 12/10/2021 3:40 PM CDT Patient discharged to Home via personal vehicle accompanied by family. Discharge instructions reviewed with patient and/or employer relations representative. Mobile pharmacy medications and/or prescriptions provided. [...] with voice recognition software. Occasional wrong-word or '[id number]' substitutions may have occurred due to the [...] barely stand up. On Monday he ate [employer], and it made him sick. Since then [...] tendency for uric acid stone formation. Source: [employer].Last revised 07-13-2017 CBC WITH AUTO DIFFERENTIAL - [...] by myself in the absence of a air tube releaser) Sinus rhythm with a rate of 60, long NE interval 239, first-degree heart block, no dropped [...] been completed with a voice recognition program. [employer] Team Member errors occur. Please contact me for any clarification.) Prema Zaman MD 12/08/21 3063 * Carin Orellana RN - 12/08/2021 5:02 [...] have home PT rather than outpatient PT comp field case manager consulted for the same. Continue [...] PM CDTAssociated Problem(s): Coronary artery disease involving [place] coronary artery of [place] heart without angina pectoris Stable. No chest [...] From: Adult child Name: Ian Zuniga Son [phone] (12/09/21 1058) Admission Source: ED Impression: generalized [...] info (name, phone, availablity): Summer Zuniga Spouse [phone] Home Care Services: No Durable Medical Equipment: [...] than three times a week ??? Attends [employer] Services: Not on file ??? Active Member [...] was supposed to start outpatient PT in [place], but has not started yet. Discharge plan [...] Fin al Result [facility] ([place]) 1 [facility] Department [place] [address] * (ABNORMAL) Urinalysis reflex to microscopic and [...] tendency for uric acid stone formation. Source: [facility] [place]. Last revised 07-13-2017 Prema Zaman MD LAB MICROBIOLOGY - GENER AL ORDERABLES Final Result Performing Organization Address [facility] Co de Phone Number [facility] ([place]) 1 [place] [address] * Influenza A/B, RSV, and COVID-19 PCR Nasopharyngeal (12/08/2021 10:08 PM CDT) COVID-19 RNA Negative Negative [facility] ([place]) Influenza A RNA Negative Negative [facility]) Influenza B RNA Negative Negative [facility] ([place]) RSV RNA Negative Negative [facility] ([place]) Comment: Interpretive data: This test is performed using the [employer] Xpert Xpress CoV-2/Flu/RSV plus assay. This is [...] 12/08/2021 10:19 PM CDT Narrative [facility] - 12/08/2021 11:02 PM CDT Is the Patient experiencing symptoms consistent with COVID?->Unknown Reason for testing?->Bed placement or semi-private room Prema Zaman MD LAB MICROBIOLOGY - GENER AL ORDERABLES Final Result Performing Organization Address [facility] Co de Phone Number [facility] [address] [place] [address] * CT Cervical Spine WO Contrast (12/08/2021 [...] PM T: ??12/08/2021 10:04 PM Report ID: [id number] Reading Location: ??[id number] Procedure Note Trey Siegel MD - 12/08/2021 [...] Trey Siegel M.D. ML: ML Report ID: [id number] Reading Location: [place] [address] Prema Zaman MD [facility] CT PROCEDURES Final Result * CT Head [...] PM T: ??12/08/2021 9:51 PM Report ID: [id number] Reading Location: ??[id number] Procedure Note Trey Siegel MD - 12/08/2021 [...] Trey Siegel M.D. ML: ML Report ID: [id number] Reading Location: [place] [address] Prema Zaman MD IMG CT PROCEDURES Final [...] PM T: ??12/08/2021 10:00 PM Report ID: [id number] Reading Location: ??[id number] Procedure Note Trey Siegel MD - 12/08/2021 [...] Trey Siegel M.D. ML: ML Report ID: [id number] Reading Location: [place] [address] Prema Zaman MD IMG CT PROCEDURES Final [...] LAB BLOOD ORDERABLES Final Result [facility] 1 [facility] Department [place] [address] * (ABNORMAL) Pro B-type natriuretic peptide (12/08/2021 8:59 PM CDT) NT-proBNP 2,618(H) <=450 pg/mL [facility] Comment: Interpretive Comments: A. Dyspnea in Acute [...] BLOOD ORDERABLES Fin al Result [facility] 1 [facility] Department of Laboratories [place], [place] [id number] * (ABNORMAL) Differential, auto (12/08/2021 8:59 PM CDT) Neutrophil abs 5.3 1.7 - 6.5 K/cumm [facility] ([place]) Imm gran abs 0.0 0.0 - 0.1 [...] BLOOD ORDERABLES Final Result Performing Organization Address City/[facility] Co de Phone Number [facility] ([place] 1 [facility] [place] [address] * Troponin T high-sensitivity series (baseline, 2hr, 4hr, 6hr) (12/08/2021 8:59 PM CDT) Trop T hs 19 <=22 ng/L [facility] ([place]) Comment: Interpretive Data For further hscTnT resources including the diagnostic algorithm and an aid in interpretation, copy and paste this link: https://nrl.testcatalog.org/show/hsTrop Current Interpretive Data last revised 2020. Blood 12/08/2021 8:59 PM CDT 12/08/2021 10:02 PM CDT Prema Zaman MD LAB BLOOD ORDERABLES Fin al Result Performing Organization Address [facility] Co de Phone Number [facility] 1 [facility] [place] [address] * Comprehensive metabolic panel (12/08/2021 8:59 PM CDT) Pathologist [facility] Sodium 140 135 - 145 mmol/L [facility] ([place]) Potassium, pl 3.6 3.3 - 4.9 mmol/L [facility] ([place]) Chloride 104 97 - 110 mmol/L [facility] ([place]) CO2 25 22 - 32 mmol/L [facility] ([place]) Anion gap 12 2 - 15 mmol/L [facility] ([place]) BUN 21 8 - 25 mg/dL [facility] ([place]) Creatinine 1.16 0.80 - 1.30 mg/dL [facility] ([place]) Glucose 97 70 - 199 mg/dL [facility] ([place]) Comment: Interpretive Data Fasting glucose >/= [...] ORDERABLES Final Result [facility] 1 [facility] Department of Laboratories [place] [id number] * (ABNORMAL) CBC with auto differential (12/08/2021 [...] BLOOD ORDERABLES Final Result Performing Organization Address [facility] Co de Phone Number [facility] ([place] 1 [facility] Department [place] [address] * ECG 12 lead (12/08/2021 8:53 PM CDT) 12/08/2021 8:53 PM CDT Narrative [facility] - 12/09/2021 8:01 AM CDT Vent Rate: 60 bpm RR Interval: 993 msec NE Interval: 239 msec QRS Duration: 121 msec QT Interval: 468 msec QTC Interval: 469 msec P-R-T [place]: -39 - -55 - 77 degrees SINUS [...] ORDERABLES Final Resu lt Performing Organization Address [facility]/ZIP Co de Phone Number [employer] [facility] * XR Ribs Right W PA Chest [...] PM T: ??12/08/2021 6:27 PM Report ID: [id number] Reading Location: ??[id number] Procedure Note Ysabel Villatoro MD - 12/08/2021 [...] Ysabel Bauer M.D. TB: TB Report ID: [id number] Reading Location: [place] [address] Saleem Garber MD IMG XR PROCEDURES Final Re sult documented in this encounter Visit Diagnoses Diagnosis Closed fracture of one rib of right side, initial encounter Elevated brain natriuretic peptide (BNP) level Generalized weakness Frequent falls Closed fracture of one rib of right side, initial encounter Coronary artery disease involving [place] coronary artery of [place] heart without angina pectoris Essential hypertension Unspecified [...] scheduled, First dose (after last modification) on [facility] 12/09/21 at 1800, Indications: PainIndications:Pain Given 12/10/2021 11:32 AM C DT 650 mg Given 12/10/2021 6:50 AM CDT 650 mg Given 12/09/2021 5:50 PM CDT 650 mg aspirin enteric coated tablet 81 mg 81 mg, oral, Daily, First dose on [facility] 12/09/21 at 1100, Do not crush, chew, cut, dissolve, open or otherwise manipulate tablet/capsule. Given 12/10/2021 9:24 AM CDT 81 mg Given 12/09/2021 11:06 AM CDT 81 mg atorvastatin (LIPITOR) tablet 40 mg 40 mg, oral, Daily, First dose on [facility] 12/09/21 at 1100 Given 12/10/2021 9:24 AM CDT 40 mg Given 12/09/2021 11:06 AM CDT 40 mg bisacodyl EC (DULCOLAX EC) tablet 10 mg 10 mg, oral, Daily PRN, constipation, If no results 24 hours after milk of magnesia, Starting on [facility] 12/09/21 at 0103, Do not crush, chew, cut, dissolve, open or otherwise manipulate tablet/capsule. clopidogreL (PLAVIX) tablet 75 mg 75 mg, oral, Daily, First dose on [facility] 12/09/21 at 1100 Given 12/10/2021 9:24 [...] dose on [place] 12/09/21 at 0130, Indications: Pain 0120 (Given [...] documented as of this encounter Care Teams Methodologist Relationship Specialty Start Date End Date Christine Herzog MD 2 [facility] [address] [place] [address] PCP - General Internal Medicine 12/02/21 Trey Pinedo MD 4 [facility] [address] [place] [address] Consulting Physician Neurology 05/09/19 documented as of this encounter
--- OUTSIDE RECORDS SUMMARY | 2024-06-18 19:12 | XMS_ITS | Encounter Summary ---
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 Gender Identity Not on file Sexual Orientation [...] Body Mass Index 26.63 08/17/2021 2:36 PM INTERNET RETAILER documented in this encounter Plan of Treatment [...] Final Re sult [facility] 1 [facility] [place] [address] * CBC with auto differential (09/14/2021 3:00 [...] Final Re sult [facility] 1 [facility] [place] [address] documented in this encounter Visit Diagnoses Diagnosis Polycythemia Polycythemia, secondary documented in this encounter Orders Appointment Requests Count Last Ordered Date Fi rst Ordered Date ONCBCN LAB APPOINTMENT 1 09/14/2021 documented in this encounter Care Teams Fitter Armament Relationship Specialty Start Date End Date Wesley Em MD PCP - General 09/30/16 12/01/21 Trey Pinedo MD [address] [place] [address] [address] [facility] [place] [address] Consulting Physician Neurology 05/09/19 documented as of this encounter
--- OUTSIDE RECORDS SUMMARY | 2024-06-18 19:12 | XMS_ITS | Encounter Summary ---
Author Organization [facility] Healthcare Address [address] [place] [address] Care Team Providers Care Intelligence Chief Name Role Phone Trey Pinedo MD Unavailable [phone] Christine Herzog MD Primary Care Provide r Reason for Visit * Reason Comments Phlebotomy Encounter Details Date Type Department Care Team (Late st Contact Info) Description 01/11/2022 2:00 PM CDT Infusion [facility] 4 [facility] [address] [place] [address] Polycythemia (Primary Dx) Social History Tobacco Use [...] than three times a week 12/31/2020 Attends Scientologist Services Not on file 12/31 Active Member [...] on file 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
--- OUTSIDE RECORDS SUMMARY | 2024-06-18 19:12 | XMS_ITS | Encounter Summary ---
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
--- OUTSIDE RECORDS SUMMARY | 2024-06-18 19:12 | XMS_ITS | Encounter Summary ---
Author Organization [facility] Healthcare Address [address] [place] [address] Care Team Providers Care Petal Shaper Hand Name Role Phone Trey Pinedo MD Unavailable [phone] Christine Herzog MD Primary Care Provide r Albert Craft MD Unavailable [phone] Chintan Figueroa MD Unavailable [phone] Jameel Bloom DPM Unavailable [phone] Gadiel Genao MD Unavailable [phone] Encounter Details Date Type Department Care Team (Late st Contact Info) Description 04/27/2022 10:15 AM CDT Lab [facility] 4 [facility] [address] [place] [address] Polycythemia Social History Tobacco Use Types Packs/Day [...] than three times a week 12/31/2020 Attends [employer] Services Not on file 12/31 Active Member [...] on file 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 Gender Identity Not on file Sexual [...] ORDERABLES Final Re sult Performing Organization Address City/[facility]/ZIP Co de Phone Number R[facility] CARMICHAEL ([place]) 1 [facility] [place] [address] * (ABNORMAL) Iron profile w/ IBC (04/27/2022 9:40 AM CDT) Pathologist [facility] Iron 31(L) 50 - 150 mcg/dL [facility] ([place]) TIBC 274 250 - 400 mcg/dL [facility] ([place]) Transferrin saturation 11(L) 20 - 50 % [facility] ([place]) Blood 04/27/2022 9:40 AM CDT 04/27/2022 9:50 AM CDT Chintan Figueroa MD LAB BLOOD ORDERABLES Final Re sult Performing Organization Address [facility] Co de Phone Number RUBENS CARMICHAEL ([place]) 1 [facility] [place] [address] * (ABNORMAL) CBC with auto differential (04/27/2022 9:40 AM CDT) Pathologist [facility] WBC 5.7 3.8 - 9.9 K/cumm CERNER [...] Final Re sult R[facility] CARMICHAEL ([place]) 1 [facility] Department [place] [address] documented in this encounter Visit Diagnoses Diagnosis Polycythemia Polycythemia, secondary documented in this encounter Orders Appointment Requests Count Last Ordered Date Fi rst Ordered Date ONCBCN LAB APPOINTMENT 1 04/27/2022 documented in this encounter Care Teams Petal Shaper Hand Relationship Specialty Start Date End Date Christine Herzog MD [address] [facility] [address] [place] [address] PCP - General Internal Medicine 12/02/21 Trey Pinedo MD [address] [place] [address] [address] [place] [address] Consulting Physician Neurology 05/09/19 Albert Craft MD [address] [facility] [place] [address] Consulting Physician Gastroenterology 03/11/22 Chintan Figueroa MD [address] [facility] [place] [address] Consulting Physician Hematology and Oncology 03/11/22 Jameel Bloom DPM [address] [place] [address] Consulting Physician Orthotics 03/11/22 Gadiel Genao MD [address] [place] [address] Surgeon Vascular Surgery 03/11/22 documented as of this encounter
--- OUTSIDE RECORDS SUMMARY | 2024-06-18 19:12 | XMS_ITS | Encounter Summary ---
Author Organization [facility] Medical Group Address [address] [facility] [address] [place] [address] Care Team Providers Care Store Group Manager Name Role Phone Trey Pinedo MD Unavailable [phone] Christine Herzog MD Primary Care Provide r Albert Craft MD Unavailable [phone] Chintan Figueroa MD Unavailable [phone] Jameel Bloom DPM Unavailable [phone] Gadiel Genao MD Unavailable [phone] Reason for Visit * Reason Comments Medicare Wellness Encounter Details Date Type Department Care Team (Late st Contact Info) Description 03/10/2022 4:00 PM CDT Office Visit [facility] Medical Group Primary Care at [address] [place] [address] Christine Herzog MD [address] [place] [address] [address] [place] [address] Mixed hyperlipidemia (Primary Dx); BMI 26.0-26.9,adult; Essential hypertension; 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; Bilateral carotid artery [...] than three times a week 12/31/2020 Attends [employer] Not on file 12/31 Active Member [...] on file 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 Gender Identity Not on file Sexual [...] Progress Notes * Christine Herzog MD - 03/10/2022 4:00 PM CDT MEDICARE SUBSEQUENT ANNUAL WELLNESS VISIT [place] Medicare Health Risk Assessment Basic Information In general, would you say your health is: Good Do you have an advance directive, such as a living will or durable power of sales support technician?: Yes Do you have to strain or [...] Polycythemia Bladder stones 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 Chronic GERD History [...] as Surgeon (Vascular Surgery) Primary Pharmacy/DME suppliers: [id number] - [place], [place] - [facility] [address] [place] [address] [place] [address] [facility] - [facility] [address] [address] Detection of Cognitive Impairment: The patient does [...] Improve Diet Advanced Directive Durable Power of Creasing And Cutting Press Feeder: Yes Living Will: Yes Assessment and Plan: [...] risks of hypertension. 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) Chronic GERD Medicare annual wellness visit, subsequent Benign prostatic hyperplasia with lower urinary tract symptoms, symptom details unspecified Obstructive sleep apnea Obstructive sleep apnea (adult) (pediatric) documented in this encounter Care Teams Store Group Manager Relationship Specialty Start Date End Date Christine Herzog MD 2 [facility] [place] [address] PCP - General Internal Medicine 12/02/21 Trey Pinedo MD [address] [place] [address] [address] [place] [address] Consulting Physician Neurology 05/09/19 Albert Craft MD [address] [place] [address] [address] [place] [address] Consulting Physician Gastroenterology 03/11/22 Chintan Figueroa MD [address] [place] [address] [address] [place] [address] Consulting Physician Hematology and Oncology 03/11/22 Jameel Bloom DPM [address] [place] [address] Consulting Physician Orthotics 03/11/22 Gadiel Genao MD [address] [place] [address] Surgeon Vascular Surgery 03/11/22 documented as of this encounter
--- OUTSIDE RECORDS SUMMARY | 2024-06-18 19:12 | XMS_ITS | Encounter Summary ---
Author Organization [facility] Address [address] [place] [address] Phone Care Team Providers Care Director Of Career Services Name Role Phone Trey Pinedo MD Unavailable Christine Herzog MD Primary Care Provide r Albert Craft MD Unavailable [phone] Chintan Figueroa MD Unavailable Jameel Bloom DPM Unavailable [phone] Gadiel Genao MD Unavailable Reason for Visit * Reason Comments Follow-up Polycythemia Encounter Details Date Type Department Care Team (Late st Contact Info) Description 04/27/2022 10:45 AM CDT Office Visit [facility] Oncology [address] [place] [address] [address] [place] [address] Chintan Figueroa MD [address] [place] [address] [address] [place] [address] Polycythemia (Primary Dx) Social History Tobacco Use [...] on file Legal Sex Male 6:00 PM 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 Patient reported he established care with emblem maker, Dr. Hoskins who recommended regular phlebotomy to [...] Recent labs, radiology and pathology reviewed in [facility] ASSESSMENT: Secondary Erythrocytosis likely due [...] physician. NIURKA Sidhu Nurse Practitioner Medical Oncology [facility] documented in this encounter Miscellaneous Notes * Addendum Note - Brittany Bazzi CLT - 04/27/2022 10:45 AM CDTAddended by: BRITTANY BAZZI on: 07/08/2022 01:52 PM Modules accepted: Orders IAL EVENTS COORDINATOR documented in this encounter Plan of Treatment Not on file documented as of this encounter Results * (ABNORMAL) CBC with auto differential (11/18/2022 1:00 PM CDT) WBC 7.0 3.8 - 9.9 K/cumm [facility] ([place]) Hgb 14.8 13.0 - 17.5 g/dL [facility] ([place]) Hct 46.6 38.9 - 50.3 % [facility] ([place]) Plt 195 150 - 400 K/cumm [facility] ([place]) MPV 10.4 9.1 - 12.3 fL CERNER [...] CDT Start in June us Monika Castellano SPRING BENDER LAB BLOOD ORDERABLES Final Result [facility] ([place]) 1 [facility] [place] [address] * (ABNORMAL) CBC with auto differential (09/22/2022 [...] CDT Start in June us Monika Castellano NP LAB BLOOD ORDERABLES Final Result [facility] ([place]) 1 [facility] [place] [address] * (ABNORMAL) CBC with auto differential (07/08/2022 1:55 PM SPECIAL EVENTS COORDINATOR) WBC 5.7 3.8 - 9.9 K/cumm [facility] [...] [facility] ([place]) Blood 07/08/2022 1:55 PM SPECIAL EVENTS COORDINATOR 07/08/2022 1:58 PM SPECIAL EVENTS COORDINATOR Narrative [facility] CARMICHAEL ([place]) - 07/08/2022 2:01 PM SPECIAL EVENTS COORDINATOR Start in June us Monika Castellano SPRING BENDER LAB BLOOD ORDERABLES Final Result [facility] ([place]) 1 [facility] [place] [address] * (ABNORMAL) Iron profile w/ IBC (04/27/2022 9:40 AM CDT) Iron 31(L) 50 - 150 mcg/dL [facility] ([place]) TIBC 274 250 - 400 mcg/dL [facility] ([place]) Transferrin saturation 11(L) 20 - 50 % [facility]ALIN[facility] CARMICHAEL ([place]) Blood 04/27/2022 9:40 AM CDT 04/27/2022 9:50 AM CDT us Chintan Figueroa MD LAB BLOOD ORDERABLES Final Re sult [facility] CARMICHA[facility] ([place]) 1 [facility] [place] [address] documented in this encounter Visit Diagnoses Diagnosis Polycythemia- Primary Polycythemia, secondary Polycythemia Polycythemia, secondary Polycythemia Polycythemia, secondary Polycythemia Polycythemia, secondary documented in this encounter Orders Appointment Requests Count Last Ordered Date Fi rst Ordered Date ONCBCN CLINIC APPOINTMENT REQUEST 2 023 04/27/2022 documented in this encounter Care Teams Director Of Career Services Relationship Specialty Start Date End Date Christine Herzog MD [address] [facility] [address] [place] [address] PCP - General Internal Medicine 12/02/21 Trey Pinedo MD [address] [facility] [address] [place] [address] Consulting Physician Neurology 05/09/19 Albert Craft MD [address] [place] [address] [address] [place] [address] Consulting Physician Gastroenterology 03/11/22 Chintan Figueroa MD [address] [place] [address] [address] [place] [address] Consulting Physician Hematology and Oncology 03/11/22 Jameel Bloom DPM [address] [place] [address] Consulting Physician Orthotics 03/11/22 Gadiel Genao MD [address] [place] [address] Surgeon Vascular Surgery 03/11/22 documented as of this encounter
--- OUTSIDE RECORDS SUMMARY | 2024-06-18 19:12 | XMS_ITS | Encounter Summary ---
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
--- OUTSIDE RECORDS SUMMARY | 2024-06-18 19:12 | XMS_ITS | Encounter Summary ---
Author Organization [facility] Healthcare Address [address] [place] [address] Care Team Providers Care Coin Box Collector Name Role Phone Trey Pinedo MD Unavailable [phone] Christine Herzog MD Primary Care Provide r Encounter Details Date Type Department Care Team (Late st Contact Info) Description 02/23/2022 12:45 PM CDT Lab [facility] Physicians 4 [facility] [address] [place] [address] Polycythemia Social History Tobacco Use Types Packs/Day [...] than three times a week 12/31/2020 Attends [employer] Services Not on file 12/31 Active Member [...] on file 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 Gender Identity Not on file Sexual [...] Final Re sult [facility] ([place]) 1 [facility] [place] [address] * (ABNORMAL) CBC with auto differential (02/23/2022 12:55 PM CDT) WBC 5.4 3.8 - 9.9 K/cumm [facility] ([place]) Hgb 13.9 13.0 - 17.5 g/dL [facility] ([place]) Hct 43.5 38.9 - 50.3 % [facility] ([place]) Plt 177 150 - 400 K/cumm [facility] ([place]) MPV 11.2 9.1 - 12.3 fL [facility] ([place]) RBC 5.29 4.30 - 5.80 M/cumm [facility] ([place]) MCV 82.2 81.3 - 96.4 fL CERNER [...] ORDERABLES Final Re sult Performing Organization Address City/[facility]/ZIP Co de Phone Number [facility] ([place]) [address] Department [place] [address] documented in this encounter Visit Diagnoses Diagnosis Polycythemia Polycythemia, secondary documented in this encounter Orders Appointment Requests Count Last Ordered Date Fi rst Ordered Date ONCBCN LAB APPOINTMENT 1 02/23/2022 documented in this encounter Care Teams Coin Box Collector Relationship Specialty Start Date End Date Christine Herzog MD 2 [facility] [address] [place] [address] PCP - General Internal Medicine 12/02/21 Trey Pinedo MD [address] [facility] [address] [place] [address] Consulting Physician Neurology 05/09/19 documented as of this encounter
--- OUTSIDE RECORDS SUMMARY | 2024-06-18 19:12 | XMS_ITS | Encounter Summary ---
Author Organization [facility] Medical Group Address [address] [facility] [address] [place] [address] Care Team Providers Care Chief Technician Name Role Phone Trey Pinedo MD Unavailable [phone] Christine Herzog MD Primary Care Provide r Albert Craft MD Unavailable [phone] Chintan Figueroa MD Unavailable [phone] Jameel Bloom DPM Unavailable [phone] Gadiel Genao MD Unavailable [phone] Sepideh Hi RN Unavailable [phone] Lexii Arnold MA Unavailable [phone] Walker Carvajal LCSW Unavailable Unavailabl e Encounter Details Date Type Department Care Team (Late st Contact Info) Description 04/19/2022 Orders Only [facility] Medical Group Primary Care at [address] [place] [address] Christine Herzog MD [address] [place] [address] [address] [place] [address] Type 2 diabetes mellitus with [...] file Legal Sex Male 6:00 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 ??Minority populations were underrepresented and children were not included. ?? (Diabetes Care 31:7022-8745, 2008). ??The eAG is not equivalent to a fasting glucose. 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 Gown, Gloves, N95, eye protection or goggles. Precautions 08/16/22. Contact Fabricator [employer] if patient worsens. SUE Baldwin 08/12/22 08/06/2022 08/06/2022 08/16/2022 3:[address] Coronavirus, contact + dropl et Comment:Negative for coronavirus 08/06/2022 08/06/2022 023 12:29 PM FOOD AND BEVERAGE ASSISTANT MANAGER COVID: Recovered Comment:Added based on recent COVID infection. 08/16/2022 08/17/2022 11/14/2022 3:05 AM C DT documented as of this encounter Care Teams Chief Technician Relationship Specialty Start Date End Date Christine Herzog MD [address] [place] [address] [address] [place] [address] PCP - General Internal Medicine 12/02/21 Trey Pinedo MD [address] [place] [address] [address] [place] [address] Consulting Physician Neurology 05/09/19 Albert Craft MD [address] [place] [address] [address] [place] [address] Consulting Physician Gastroenterology 03/11/22 Chintan Figueroa MD [address] [place] [address] [address] [place] [address] Consulting Physician Hematology and Oncology 03/11/22 Jameel Bloom DPM [address] [place] [address] Consulting Physician Orthotics 03/11/22 Gadiel Genao MD [address] [place] [address] Surgeon Vascular Surgery 03/11/22 Sepideh Hi, SUE [address] [place] [address] [address] [place] [address] Plant Controller 08/12/22 09/01/22 Lexii Arnold MA [address] [facility] [address] [place] [address] ACO Care Call Center Agent 09/19/22 09/20/22 Walker Carvajal LCSW [address] [facility] [address] [place] [address] Foot Setter 09/27/22 09/27/22 documented as of this encounter
--- OUTSIDE RECORDS SUMMARY | 2024-06-18 19:12 | XMS_ITS | Encounter Summary ---
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 Gender Identity Not on file Sexual [...] Final Re sult [facility] ([place]) 1 [facility] Department [place] [address] * (ABNORMAL) CBC with auto differential (01/11/2022 [...] Final Re sult [facility] ([place]) 1 [facility] Department [place] [address] documented in this encounter Visit Diagnoses Diagnosis Polycythemia Polycythemia, secondary documented in this encounter Orders Appointment Requests Count Last Ordered Date Fi rst Ordered Date ONCBCN LAB APPOINTMENT 1 01/11/2022 documented in this encounter Care Teams Sewing Department Supervisor Relationship Specialty Start Date End Date Christine Herzog MD [address] [facility] [address] [place] [address] PCP - General Internal Medicine 12/02/21 Trey Pinedo MD [address] [facility] [address] [place] [address] Consulting Physician Neurology 05/09/19 documented as of this encounter
--- OUTSIDE RECORDS SUMMARY | 2024-06-18 19:12 | XMS_ITS | Encounter Summary ---
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 Gender Identity Not on file Sexual Orientation Straight 01/23/2021 10 :16 PM CDT documented as of this encounter Progress Notes * Araseli Rasmussen - 12/15/2021 4:18 PM CDT re documented in this encounter Plan of Treatment Not on file documented as of this encounter Visit Diagnoses Diagnosis Vertigo- Primary Dizziness and giddiness documented in this encounter Care Teams Plant And Instrument Engineer Relationship Specialty Start Date End Date Christine Herzog MD [address] [facility] [address] [place] [address] PCP - General Internal Medicine 12/02/21 Trey Pinedo MD [address] [facility] [address] [place] [address] Consulting Physician Neurology 05/09/19 documented as of this encounter
--- OUTSIDE RECORDS SUMMARY | 2024-06-18 19:12 | XMS_ITS | Encounter Summary ---
Author Organization [facility] Medical Group Address [address] [facility] [address] [place] [address] Care Team Providers Care Mushroom Farmer Name Role Phone eWsley Em MD Primary Care Provider [phone] Trey Pinedo MD Unavailable [phone] Reason for Visit * Reason Comments Hypertension 3 week f/u rising PSA level Encounter Details Date Type Department Care Team (Late st Contact Info) Description 11/03/2021 1:00 PM CDT Office Visit [place] [facility] 2 [facility] [address] [place] [address] Wesley Em MD [address] [place] [address] [address] [place] [address] Type 2 diabetes mellitus with hyperlipidemia (HCC) [...] file Legal Sex Male 6:00 PM 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
--- OUTSIDE RECORDS SUMMARY | 2024-06-18 19:12 | XMS_ITS | Encounter Summary ---
Author Organization [facility] Healthcare Address [address] [place] [address] Care Team Providers Care Reflow Operator Name Role Phone Trey Pinedo MD Unavailable [phone] Christine Herzog MD Primary Care Provide r Reason for Visit * Reason Comments OP Infusion Here for possible ph lebotomy. No phlebotomy today, Hematocrit 43.5. 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
--- OUTSIDE RECORDS SUMMARY | 2024-06-18 19:12 | XMS_ITS | Encounter Summary ---
Author Organization [facility] Medical Group Address [address] [facility] [facility] [address] [place] [address] Care Team Providers Care Drafting Clerk Name Role Phone Trey Pinedo MD Unavailable [phone] Christine Herzog MD Primary Care Provide r Albert Craft MD Unavailable [phone] Chintan Figueroa MD Unavailable [phone] Jameel Bloom DPM Unavailable [phone] Gadiel Genao MD Unavailable [phone] Reason for Visit * Reason Comments Memory Loss Encounter Details Date Type Department Care Team (Late st Contact Info) Description 04/19/2022 4:00 PM CDT Office Visit [facility] Medical Group Primary Care at [address] [place] [address] Christine Herzog MD [address] [place] [address] [address] [place] [address] Cognitive decline (Primary Dx) Social [...] on file 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 Gender Identity Not on file Sexual Orientation [...] MMSE 17 [facility] Referral for home health to help with [...] MMSE 17 Ref[facility] to [facility] Referral for home health to help with [...] documented as of this encounter Care Teams Drafting Clerk Relationship Specialty Start Date End Date Christine Herzog MD [address] [facility] [address] [place] [address] PCP - General Internal Medicine 12/02/21 Trey Pinedo MD [address] [facility] [address] [place] [address] Consulting Physician Neurology 05/09/19 Albert Craft MD [address] [facility] [address] [place] [address] Consulting Physician Gastroenterology 03/11/22 Chintan Figueroa MD [address] [facility] [address] [place] [address] Consulting Physician Hematology and Oncology 03/11/22 Jameel Bloom DPM [address] [place] [address] Consulting Physician Orthotics 03/11/22 Gadiel Genao MD [address] [place] [address] Surgeon Vascular Surgery 03/11/22 documented as of this encounter
--- OUTSIDE RECORDS SUMMARY | 2024-06-18 19:12 | XMS_ITS | Encounter Summary ---
Author Organization [facility] Address [address] [place] [address] Phone Care Team Providers Care Butcher Assistant Name Role Phone Wesley Em MD Primary Care Provider [phone] Trey Pinedo MD Unavailable [phone] Christine Herzog MD Primary Care Provide r Reason for Visit * Reason Comments Follow-up polycythemia Encounter Details Date Type Department Care Team (Late st Contact Info) Description 2021 3:15 PM CDT Office Visit [facility] Oncology [address] [place] [address] Medical [facility] [address] [id number] Chintan Figueroa MD [address] [place] [address] [address] [place] [address] Polycythemia Social History Tobacco Use Types Packs/Day [...] on file Legal Sex Male 6:00 PM REHAB AID Gender Identity Not on file Sexual [...] at that time. 2021 Chintan Figueroa MD B And B Gang Worker Internal Medicine-Medical Oncology [facility] in [place] - Physicians in [address] [address] Office: After Hours and Weekends: Wardsperson completed using M*Modal fluency direct speaking software, therefore, engine repairer variances may occur. HEMATOLOGY HISTORY: 01/26/2021 --The [...] tells me that he did see a reading assistant here in [place], Dr. Hoskins, several years ago who recommended [...] taking testosterone in any form nor any ihxe-muk-expzcgu androgen type erb or supplement. His significant past medical history includes: 1. Essential hypertension 2. GERD 3. Colonic polyps 4. TIA 5. Type 2 diabetes 6. History of Myao's esophagus with dysplasia 7. Coronary disease without [...] stones 2017 ??? Coronary artery disease involving ekuk coronary artery of ekuk heart without angina pectoris 2017 ??? Chronic [...] Final Re sult [facility] 1 [facility] [place] [address] * (ABNORMAL) CBC with auto differential (02/23/2022 [...] Final Re sult [facility] 1 [facility] [place] [address] * (ABNORMAL) CBC with auto differential (01/11/2022 [...] Final Re sult [facility] 1 [facility] [place] [address] documented in this encounter Visit Diagnoses Diagnosis [...] documented as of this encounter Care Teams Butcher Assistant Relationship Specialty Start Date End Date Wesley Em MD PCP - General 09/30/16 12/01/21 Christine Herzog MD [address] [facility] [address] [place] [address] PCP - General Internal Medicine 12/02/21 Trey Pinedo MD [address] [facility] [address] [place] [address] Consulting Physician Neurology 05/09/19 documented as of this encounter
--- OUTSIDE RECORDS SUMMARY | 2024-06-18 19:12 | XMS_ITS | Encounter Summary ---
Author Organization [facility] Medical Group Address [address] [place] [address] Care Team Providers Care Ophthalmic Surgeon Name Role Phone Wesley Em MD Primary Care Provider [phone] Trey Pinedo MD Unavailable [phone] Encounter Details Date Type Department Care Team (Late st Contact Info) Description 11/17/2021 Orders Only [facility] [address] [facility] [address] [place] [address] Wesley Em MD [address] 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
--- OUTSIDE RECORDS SUMMARY | 2024-06-18 19:12 | XMS_ITS | Encounter Summary ---
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 Do you have transportation for your visit? yes Any other questions or concerns? Pt son Ian wants to discuss having pt see E[facility] at [facility] tomorrow for possible vertigo. * Telephone Encounter [...] - 12/10/2021 10:15 AM CDT Altaf with [facility] called and jazmin pt for GULSHAN with ELIZA 12/15/21. Pt jazmin to be d/c later on today. documented in this encounter Plan of Treatment Not on file documented as of this encounter Visit Diagnoses Not on filedocumented in this encounter Care Teams Gymnasium Teacher Relationship Specialty Start Date End Date Christine Herzog MD [address] [facility] [address] [place], [place] [address] [address] PCP - General Internal Medicine 12/02/21 Trey Pinedo MD [address] [facility] [address] [place] [address] Consulting Physician Neurology 05/09/19 documented as of this encounter
--- OUTSIDE RECORDS SUMMARY | 2024-06-18 19:12 | XMS_ITS | Encounter Summary ---
Author Organization [facility] Medical Group Address [address] [facility] [address] [place] [address] Care Team Providers Care Packager Head Name Role Phone Wesley Em MD Primary Care Provider [phone] Trey Pinedo MD Unavailable [phone] Encounter Details Date Type Department Care Team (Late st Contact Info) Description 11/16/2021 Telephone [facility] [address] 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 They will contact patient to schedule. * Telephone Encounter - Martha Sutton MA - 11/16/2021 4:54 PM CDT They did not care as long as it was in [place] * Telephone Encounter - Linda Jordan MA - 11/16/2021 4:01 PM CDT SB * Telephone Encounter - Salena Leal MA - 11/16/2021 3:53 PM CDT Which PT in [place]? There's a couple different PT agencies in [place] * Telephone Encounter - Martha Sutton MA - 11/16/2021 3:50 PM CDT Per verbal from Dr. Em refer for PT for peripheral neuropathy In [place] Son Ian verdin, and is contact for this documented in this encounter Plan of Treatment Not on file documented as of this encounter Visit Diagnoses Not on filedocumented in this encounter Care Teams Packager Head Relationship Specialty Start Date End Date Wesley Em MD PCP - General 09/30/16 12/01/21 Trey Pinedo MD [address] [place] [address] [place] [address] Consulting Physician Neurology 05/09/19 documented as of this encounter
--- OUTSIDE RECORDS SUMMARY | 2024-06-18 19:12 | XMS_ITS | Encounter Summary ---
Author Organization [facility] Medical Group Address [address] [facility] [address] [place] [address] Care Team Providers Care Core Blower Name Role Phone Trey Pinedo MD Unavailable [phone] Christine Herzog MD Primary Care Provide r Reason for Visit * Reason Comments transition of care [facility] 12/10/21, freque nt fall, rib fracture , weakness Encounter Details Date Type Department Care Team (Late st Contact Info) Description 12/15/2021 3:30 PM CDT Office Visit [facility] [address] 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 Attends Alevism Services: Not on file ??? Active Member [...] been provided to and reviewed with the patient/healthcare management prior to discharge. documented in this encounter Miscellaneous Notes * Assessment & Plan Note - Christine Herzog MD - 12/15/2021 6:29 PM CDT Associated Problem(s): Dizziness Orthostatics in office negative Referral to ENT given for evaluation of vertigo Can try scopolamine [id number] for symptomatic relief * Assessment & Plan [...] 09/19/2022 added in this encounter Care Teams Core Blower Relationship Specialty Start Date End Date Christine Herzog MD [address] [facility] [address] [place] [address] PCP - General Internal Medicine 12/02/21 Trey Pinedo MD [address] [facility] [address] [place] [address] Consulting Physician Neurology 05/09/19 documented as of this encounter
--- OUTSIDE RECORDS SUMMARY | 2024-06-18 19:12 | XMS_ITS | Encounter Summary ---
Author Organization [facility] Healthcare Address [address] [place] [address] Care Team Providers Care Insulator Cutter And Former Name Role Phone Trey Pinedo MD Unavailable [phone] Christine Herzog MD Primary Care Provide r Albert Craft MD Unavailable [phone] Chintan Figueroa MD Unavailable [phone] Jameel Bloom DPM Unavailable [phone] Gadiel Genao MD Unavailable [phone] Encounter Details Date Type Department Care Team (Late st Contact Info) Description 07/08/2022 3:00 PM CORPORATE LEGAL SECRETARY Lab [facility] [address] [facility] [address] [place] [address] Polycythemia Social History Tobacco Use Types Packs/Day [...] on file Legal Sex Male 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 Gender Identity Not on file Sexual Orientation Straight 01/23/2021 10 :16 PM CDT documented as of this encounter Last Filed Vital Signs Vital Sign Reading Time Taken Comments Blood Pressure 186/84 07/08/2022 2:01 PM CORPORATE LEGAL SECRETARY Pulse 84 07/08/2022 2:01 PM CORPORATE LEGAL SECRETARY Temperature 36.3 ??C (97.3 ??F) 07/08/2022 2:01 PM CS T Respiratory Rate 20 07/08/2022 2:01 PM CORPORATE LEGAL SECRETARY Oxygen Saturation 94% 07/08/2022 2:01 PM CORPORATE LEGAL SECRETARY Inhaled Oxygen Concentration - - Weight 80.7 kg (177 lb 14.4 oz) 07/08/2022 2:01 PM CORPORATE LEGAL SECRETARY Height 176.5 cm (5' 9.5 ) 07/08/2022 2:01 PM CORPORATE LEGAL SECRETARY Body Mass Index 25.89 07/08/2022 2:01 PM CORPORATE LEGAL SECRETARY documented in this encounter Plan of Treatment Not on file documented as of this encounter Procedures Procedure Name Priority Date/Time Associated Diagnosis Comments DIFFERENTIAL AUTO Routine 07/08/2022 1:5 5 PM CORPORATE LEGAL SECRETARY Polycythemia CBC WITH AUTO DIFFERENTIAL Routine 07/08/2022 1:55 PM CORPORATE LEGAL SECRETARY Polycythemia documented in this encounter Results * Differential, auto (07/08/2022 1:55 PM CORPORATE LEGAL SECRETARY) Neutrophil abs 3.6 1.7 - 6.5 K/cumm [...] revised on 2017. Blood 07/08/2022 1:55 PM CORPORATE LEGAL SECRETARY 07/08/2022 1:58 PM CORPORATE LEGAL SECRETARY us Monika Castellano NP LAB BLOOD ORDERABLES Final Result [facility] 1 [facility] Department [place] [address] * (ABNORMAL) CBC with auto differential (07/08/2022 1:55 PM CORPORATE LEGAL SECRETARY) WBC 5.7 3.8 - 9.9 K/cumm [facility] [...] [facility] Blood 07/08/2022 1:55 PM CORPORATE LEGAL SECRETARY 07/08/2022 1:58 PM CORPORATE LEGAL SECRETARY Narrative [facility] ([facility]) - 07/08/2022 2:01 PM CORPORATE LEGAL SECRETARY Start in June Monika Castellano ACCOUNTANT MACHINE PROCESSING LAB BLOOD ORDERABLES Final Result [facility] ([place]) 1 [facility] Department [place] [address] documented in this encounter Visit Diagnoses Diagnosis Polycythemia Polycythemia, secondary documented in this encounter Orders Appointment Requests Count Last Ordered Date Fi rst Ordered Date ONCBCN LAB APPOINTMENT 1 07/08/2022 documented in this encounter Care Teams Insulator Cutter And Former Relationship Specialty Start Date End Date Christine Herzog MD 2 [facility] [address] [place] [address] PCP - General Internal Medicine 12/02/21 Trey Pinedo MD [address] [place] [address] [address] [place] [address] Consulting Physician Neurology 05/09/19 Albert Craft MD 2 [facility] [address] [place] [address] Consulting Physician Gastroenterology 03/11/22 Chintan Figueroa MD 2 [facility] [address] [place] [address] Consulting Physician Hematology and Oncology 03/11/22 Jameel Bloom DPM [address] [place] [address] Consulting Physician Orthotics 03/11/22 Gadiel Genao MD [address] [place] [address] Surgeon Vascular Surgery 03/11/22 documented as of this encounter
--- OUTSIDE RECORDS SUMMARY | 2024-06-18 19:12 | XMS_ITS | Encounter Summary ---
Author Organization [facility] Medical Group Address [address] [facility] [address] [place] [address] Care Team Providers Care Professor Sculpture Name Role Phone Trey Pinedo MD Unavailable [phone] Christine Herzog MD Primary Care Provide r Encounter Details Date Type Department Care Team (Late st Contact Info) Description 03/10/2022 Orders Only [facility] Medical Group Primary Care at [address] [place] [address] Christine Herzog MD [address] [place] [address] [address] [place] [address] Essential hypertension (Primary Dx); Type [...] colon documented in this encounter Care Teams Professor Sculpture Relationship Specialty Start Date End Date Christine Herzog MD [address] [place] [address] [place] [address] PCP - General Internal Medicine 12/02/21 Trey Pinedo MD 4 [facility] [address] [facility] [place] [address] Consulting Physician Neurology 05/09/19 documented as of this encounter
--- OUTSIDE RECORDS SUMMARY | 2024-06-18 19:12 | XMS_ITS | Encounter Summary ---
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 Please advise [phone] Ok to leave message on secure VM documented in this encounter Plan of Treatment Not on file documented as of this encounter Visit Diagnoses Not on filedocumented in this encounter Care Teams Oven Drier Tender Relationship Specialty Start Date End Date Christine Herzog MD [address] [facility] [address] [place] [address] PCP - General Internal Medicine 12/02/21 Trey Pinedo MD [address] [facility] [address] [place] [address] Consulting Physician Neurology 05/09/19 documented as of this encounter
--- OUTSIDE RECORDS SUMMARY | 2024-06-18 19:12 | XMS_ITS | Encounter Summary ---
Author Organization [facility] Address [address] [place] [address] Phone Care Team Providers Care Electrician Manager Name Role Phone Trey Pinedo MD Unavailable [phone] Christine Herzog MD Primary Care Provide r Albert Craft MD Unavailable [phone] Chintan Figueroa MD Unavailable [phone] Jameel Bloom DPM Unavailable [phone] Gadiel Genao MD Unavailable [phone] Encounter Details Date Type Department Care Team (Late st Contact Info) Description 04/21/2022 Telephone [facility] Oncology [address] [place] [address] Medical Office [facility] B [facility] [address] [place] [address] Josefa Santana, NICAT Social History Tobacco Use [...] than three times a week 12/31/2020 Attends Confucianist Services Not on file 12/31 Active Member [...] on file 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 Gender Identity Not on file Sexual Orientation Straight 01/23/2021 10 :16 PM CDT documented as of this encounter Miscellaneous Notes * Telephone Encounter - Josefa Santana CLT - 04/21/2022 9:24 AM CDT LMOM TO RETURN CALL documented in this encounter Plan of Treatment Not on file documented as of this encounter Visit Diagnoses Not on filedocumented in this encounter Care Teams Electrician Manager Relationship Specialty Start Date End Date Christine Herzog MD [address] [facility] [address] [place] [address] PCP - General Internal Medicine 12/02/21 Trey Pinedo MD [address] [place] [address] [address] [place] [address] Consulting Physician Neurology 05/09/19 Albert Craft MD [address] [place] [address] [address] [place] [address] Consulting Physician Gastroenterology 03/11/22 Chintan Figueroa MD [address] [place] [address] [address] [place] [address] Consulting Physician Hematology and Oncology 03/11/22 Jameel Bloom DPM [address] [place] [address] Consulting Physician Orthotics 03/11/22 Gadiel Genao MD [address] [place] [address] Surgeon Vascular Surgery 03/11/22 documented as of this encounter
--- OUTSIDE RECORDS SUMMARY | 2024-06-18 19:12 | XMS_ITS | Encounter Summary ---
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 SEX ?REFERENCE INTERVAL 0 minutes-150 years ?Female ?None 0 minutes-49 years ? Male ?None ? 50-59 years ? Male ?0-3.90 ? 60-69 years ? Male ?0-5.40 ? 70-79 years ? Male ?0-6.20 ? 80-150 years ?Male ?0-6.20 Current interpretive data last revised 2018. Testing performed by: [facility], [address] [place] [address]., [id number] Blood 10/06/2021 12:2 8 PM CDT 10/06/2021 2:06 PM CDT us Wesley Em MD LAB BLOOD ORDERABLES Final Res ult Performing Organization Address City/[facility]/ZIP Co de Phone Number [facility] ([place]) 1 [facility] [place] [address] * Basic metabolic panel (10/06/2021 12:28 PM CDT) Sodium 138 135 - 145 mmol/L [facility] ([place]) Potassium, pl 3.9 3.3 - 4.9 mmol/L [facility] ([place]) Chloride 105 97 - 110 mmol/L [facility] ([place]) CO2 25 22 - 32 mmol/L [facility] ([place]) Anion gap 8 2 - 15 mmol/L [facility] ([place]) BUN 21 8 - 25 mg/dL [facility] ([place]) Creatinine 1.10 0.80 - 1.30 mg/dL [facility] ([place]) Glucose 116 70 - 199 mg/dL [facility] ([place]) Comment: Interpretive Data Fasting glucose [...] 2017. Calcium 8.6 8.5 - 10.3 mg/dL [facility] ([place]) Blood 10/06/2021 12:2 8 PM CDT 10/06/2021 12:40 PM CDT Wesley Em MD LAB BLOOD ORDERABLES Final Res ult [facility] ([place]) 1 [facility] Department of Laboratories [place], [place] [id number] * (ABNORMAL) Hemoglobin A1c (10/06/2021 12:28 PM CDT) Hgb A1C 5.7(H) 4.0 - 5.6 % [facility] ([place]) Estimated Average Glucose 117 mg/dL [facility] ([place]) Comment: The ADA recommends reporting an estimated Average Glucose (eAG) with all Hemoglobin A1c results using the equation derived from a study of 507 normal and diabetic adults. ??Minority populations were underrepresented and children were not included. ?? (Diabetes Care 31:2239-4100, 2008). ??The eAG is not equivalent to a fasting glucose. Blood 10/06/2021 12:2 8 PM CDT 10/06/2021 12:40 PM CDT Wesley Em MD LAB BLOOD ORDERABLES Final Res ult [facility] ([place]) 1 [facility] [place] [address] * (ABNORMAL) Hepatic function panel (10/06/2021 12:28 PM CDT) Bilirubin, total 0.4 0.1 - 1.2 mg/dL [facility] ([place]) Bilirubin, direct <0.2 0.1 - 0.3 mg/dL [facility] ([place]) Protein, pl 6.3(L) 6.5 - 8.5 g/dL [facility] ([place]) Albumin 3.8 3.5 - 5.0 g/dL [facility] ([place]) Alk phos 98 40 - 130 Units/L [facility] ([place]) ALT 10 7 - 55 Units/L [facility] ([place]) AST 11 10 - 50 Units/L [facility] ([place]) Blood 10/06/2021 12:2 8 PM CDT 10/06/2021 12:40 PM CDT us Wesley Em MD LAB BLOOD ORDERABLES Final Res ult [facility] ([place]) 1 [facility] [place] [address] * Magnesium (10/06/2021 12:28 PM CDT) Magnesium 2.0 1.4 - 2.5 mg/dL [facility] ([place]) Blood 10/06/2021 12:2 8 PM CDT 10/06/2021 12:40 PM CDT us Wesley Em MD LAB BLOOD ORDERABLES Final Res ult [facility] ([place]) 1 [facility] [place] [address] documented in this encounter Visit Diagnoses Diagnosis Type 2 diabetes mellitus with hyperlipidemia (HCC) Screening PSA (prostate specific antigen) Special screening for malignant neoplasm of prostate documented in this encounter Care Teams Interactive Web Developer Relationship Specialty Start Date End Date Wesley Em MD PCP - General 09/30/16 12/01/21 Trey Pinedo MD [address] [place] [address] [address] [place] [address] Consulting Physician Neurology 05/09/19 documented as of this encounter
--- OUTSIDE RECORDS SUMMARY | 2024-06-18 19:12 | XMS_ITS | Encounter Summary ---
Author Organization [facility] Medical Group Address [address] [facility] [address] [place] [address] Care Team Providers Care Floor Covering Layer Name Role Phone Trey Pinedo MD Unavailable [phone] Christine Herzog MD Primary Care Provide r Albert Craft MD Unavailable [phone] Chintan Figueroa MD Unavailable [phone] Jameel Bloom DPM Unavailable [phone] Gadiel Genao MD Unavailable [phone] Encounter Details Date Type Department Care Team (Late st Contact Info) Description 04/19/2022 Telephone [facility] Medical [facility] [place] [address] [facility] [address] [place] [address] Christine Herzog MD [address] [place] [address] [address] [place] [address] Social History Tobacco Use Types [...] than three times a week 12/31/2020 Attends [employer] Services Not on file 12/31 Active Member [...] file 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 Thank you, [employer] [facility] * Telephone Encounter - Tarah Elias - 04/19/2022 4:[address] Polo Ruby is referring this patient to [facility] clinic Dx: cognitive decline documented in this encounter Plan of Treatment Not on file documented as of this encounter Visit Diagnoses Not on filedocumented in this encounter Care Teams Floor Covering Layer Relationship Specialty Start Date End Date Christine Herzog MD 2 [facility] [address] [place] [address] PCP - General Internal Medicine 12/02/21 Trey Pinedo MD [address] [place] [address] [address] [facility] [address] Consulting Physician Neurology 05/09/19 Albert Craft MD 2 [facility] [address] [place] [address] Consulting Physician Gastroenterology 03/11/22 Chintan Figueroa MD 2 [facility] [address] [place] [address] Consulting Physician Hematology and Oncology 03/11/22 Jameel Bloom DPM [address] [place] [address] Consulting Physician Orthotics 03/11/22 Gadiel Genao MD [address] [place] [address] Surgeon Vascular Surgery 03/11/22 documented as of this encounter
--- OUTSIDE RECORDS SUMMARY | 2024-06-18 19:12 | XMS_ITS | Encounter Summary ---
Author Organization [facility] Medical Group Address [address] [facility] [address] [place] [address] Care Team Providers Care Estimator Binding Name Role Phone Trey Pinedo MD Unavailable [phone] Christine Herzog MD Primary Care Provide r Albert Craft MD Unavailable [phone] Chintan Figueroa MD Unavailable [phone] Jameel Bloom DPM Unavailable [phone] Gadiel Genao MD Unavailable [phone] Encounter Details Date Type Department Care Team (Late st Contact Info) Description 03/21/2022 Telephone [facility] Gastroenterology at [address] [place] [address] Albert Craft MD [address] [place] [address] [address] [place] [address] Social History Tobacco Use Types [...] than three times a week 12/31/2020 Attends Synagogue Services Not on file 12/31 Active Member [...] on file 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 Gender Identity Not on file Sexual [...] polyps documented in this encounter Care Teams Estimator Binding Relationship Specialty Start Date End Date Christine Herzog MD 2 [facility] [address] [place] [address] PCP - General Internal Medicine 12/02/21 Trey Pinedo MD [address] [place] [address] [address] [place] [address] Consulting Physician Neurology 05/09/19 Albert Craft MD 2 [facility] [address] [place] [address] Consulting Physician Gastroenterology 03/11/22 Chintan Figueroa MD [address] [place] [address] [address] [place], [place] [address] [address] Consulting Physician Hematology and Oncology 03/11/22 Jameel Bloom DPM [address] [place] [address] Consulting Physician Orthotics 03/11/22 Gadiel Genao MD [address] [place] [address] Surgeon Vascular Surgery 03/11/22 documented as of this encounter
--- OUTSIDE RECORDS SUMMARY | 2024-06-18 19:12 | XMS_ITS | Encounter Summary ---
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 Gender Identity Not on file Sexual [...] Final Res ult [facility] ([place]) 1 [facility] [place] [address] * (ABNORMAL) CBC with auto differential (11/02/2021 [...] Final Res ult [facility] ([place]) 1 [facility] [place] [address] * Lipid panel (11/02/2021 12:21 PM CDT) [...] ORDERABLES Final Res ult Performing Organization Address City/[facility]/ZIP Co de Phone Number RUBENS CARMICHAEL ([place]) 1 [facility] [place] [id number] * TSH (11/02/2021 12:21 PM CDT) Thyroid Stimulating Hormone 3.68 0.30 - 4.20 mcIUnit/mL RUBENS CARMICHAEL ([place]) Blood 11/02/2021 12:2 1 PM CDT 11/02/2021 2:07 PM CDT Narrative [facility] ([place]) - 11/02/2021 2:53 PM CDT Pt will be getting labs in the next month Wesley Em MD LAB BLOOD ORDERABLES Final Res ult [facility] ([place]) 1 [facility] [place] [address] * T4, free (11/02/2021 12:21 PM CDT) Free T4 1.17 0.90 - 1.70 ng/dL [facility] CAR[facility] ([place]) Blood 11/02/2021 12:2 1 PM CDT 11/02/2021 2:07 PM CDT Narrative [facility] CARMICHAEL ([place]) - 11/02/2021 2:53 PM CDT Pt will be getting labs in the next month us Wesley Em MD LAB BLOOD ORDERABLES Final Res ult [facility] CARMICHA[facility] ([place]) 1 [facility] [place] [address] documented in this encounter Visit Diagnoses Diagnosis Hypersomnia Hypersomnia, unspecified Essential hypertension Unspecified essential hypertension Fatigue, unspecified type Type 2 diabetes mellitus with hyperlipidemia (HCC) documented in this encounter Care Teams Chief Technologist Relationship Specialty Start Date End Date Wesley Em MD PCP - General 09/30/16 12/01/21 Trey Pinedo MD [address] [place] [address] [address] [place] [address] Consulting Physician Neurology 05/09/19 documented as of this encounter
--- OUTSIDE RECORDS SUMMARY | 2024-06-18 19:12 | XMS_ITS | Encounter Summary ---
Author Organization [facility] Address [address] [place] [address] Phone Care Team Providers Care Marketing Strategy Analyst Name Role Phone Trey Pinedo MD Unavailable [phone] Christine Herzog MD Primary Care Provide r Albert Craft MD Unavailable [phone] Chintan Figueroa MD Unavailable [phone] Jameel Bloom DPM Unavailable [phone] Gadiel Genao MD Unavailable [phone] Encounter Details Date Type Department Care Team (Late st Contact Info) Description 04/26/2022 Telephone [facility] [address] [place] [address] Medical Office [facility] [address] [address] Alla Huerta, NICAT Social History Tobacco Use [...] on file 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 Gender Identity Not on file Sexual Orientation Straight 01/23/2021 10 :16 PM CDT documented as of this encounter Miscellaneous Notes * Telephone Encounter - Alla Huerta CLT - 04/26/2022 1:23 PM CDT Lmom 04/27 appt reminder documented in this encounter Plan of Treatment Not on file documented as of this encounter Visit Diagnoses Not on filedocumented in this encounter Care Teams Marketing Strategy Analyst Relationship Specialty Start Date End Date Christine Herzog MD [address] [facility] [address] [place] [address] PCP - General Internal Medicine 12/02/21 Trey Pinedo MD [address] [facility] [address] [place] [address] Consulting Physician Neurology 05/09/19 Albert Craft MD [address] [facility] [address] [place] [address] Consulting Physician Gastroenterology 03/11/22 Chintan Figueroa MD [address] [facility] [address] [place] [address] Consulting Physician Hematology and Oncology 03/11/22 Jameel Bloom DPM [address] [place] [address] Consulting Physician Orthotics 03/11/22 Gadiel Genao MD [address] [place] [address] Surgeon Vascular Surgery 03/11/22 documented as of this encounter
--- OUTSIDE RECORDS SUMMARY | 2024-06-18 19:12 | XMS_ITS | Encounter Summary ---
Author Organization [facility] Medical Group Address [address] [facility] [address] [place] [address] Care Team Providers Care Gauger Chief Name Role Phone Wesley Em MD Primary Care Provider [phone] Trey Pinedo MD Unavailable [phone] Reason for Visit * Reason Comments Follow-up 4 month Encounter Details Date Type Department Care Team (Late st Contact Info) Description 10/07/2021 3:00 PM CDT Office Visit [facility] [address] [facility] [address] [place] [address] Wesley Em MD [address] [place] [address] [address] [place] [address] Overweight with body mass index (BMI) of 27 to 27.9 in adult (Primary Dx); 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 male. 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
--- OUTSIDE RECORDS SUMMARY | 2024-06-18 19:12 | XMS_ITS | Encounter Summary ---
Author Organization [facility] Healthcare Address [address] [place] [address] Care Team Providers Care Datapower Consultant Name Role Phone Wesley Em MD Primary Care Provider [phone] Trey Pinedo MD Unavailable [phone] Encounter Details Date Type Department Care Team (Late st Contact Info) Description 2021 2:45 PM CDT Lab [facility] Physicians 4 [facility] [address] [place] [address] Polycythemia Social History Tobacco Use Types Packs/Day [...] than three times a week 12/31/2020 Attends Sabianism Services Not on file 12/31 Active Member [...] file 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 Gender Identity Not on file Sexual Orientation [...] BLOOD ORDERABLES Final Re sult RUBENS CARMICHAEL ([place]) 1 [facility] [place] [address] * (ABNORMAL) Iron profile w/ IBC (2021 2:25 PM CDT) Iron 31(L) 50 - 150 mcg/dL [facility] ([place]) TIBC 283 250 - 400 mcg/dL [facility] ([place]) Transferrin saturation 11(L) 20 - 50 % [facility] ([place]) Blood 2021 2:25 PM CDT 2021 3:03 PM CDT us Chintan Figueroa MD LAB BLOOD ORDERABLES Final Re sult [facility] ([place]) 1 [facility] [place] [address] * (ABNORMAL) CBC with auto differential (2021 [...] BLOOD ORDERABLES Final Re sult [facility] CARMICHA[facility] ([place]) 1 [facility] [place] [address] documented in this encounter Visit Diagnoses Diagnosis Polycythemia Polycythemia, secondary documented in this encounter Orders Appointment Requests Count Last Ordered Date Fi rst Ordered Date ONCBCN LAB APPOINTMENT 1 2021 documented in this encounter Care Teams Datapower Consultant Relationship Specialty Start Date End Date Wesley Em MD PCP - General 09/30/16 12/01/21 Trey Pinedo MD [address] [place] [address] [address] [place] [address] Consulting Physician Neurology 05/09/19 documented as of this encounter
--- OUTSIDE RECORDS SUMMARY | 2024-06-18 19:12 | XMS_ITS | Encounter Summary ---
Author Organization [facility] Medical [facility] Address [address] [facility] [address] [place] [address] Care Team Providers Care Stripper Apprentice Name Role Phone Wesley Em MD Primary Care Provider [phone] Trey Pinedo MD Unavailable [phone] Encounter Details Date Type Department Care Team (Late st Contact Info) Description 11/03/2021 Orders Only [facility] 2 [facility] [address] [place] [address] Christine Herzog MD 2 [facility] [address] [place] [address] Mayo's esophagus with dysplasia (Primary Dx) Social [...] than three times a week 12/31/2020 Attends Caodaism Services Not on file 12/31 Active Member [...] on file 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
--- OUTSIDE RECORDS SUMMARY | 2024-06-18 19:12 | XMS_ITS | Encounter Summary ---
Author Organization [facility] Healthcare Address [address] [place] [address] Care Team Providers Care Barrel Handler Name Role Phone Trey Pinedo MD Unavailable [phone] Christine Herzog MD Primary Care Provide r Albert Craft MD Unavailable [phone] Chintan Figureoa MD Unavailable [phone] Jameel Bloom DPM Unavailable [phone] Gadiel Genao MD Unavailable [phone] Reason for Visit * Reason Comments OP Infusion Here for phlebotomy. 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 He is here for a phlebotomy. His Hematocrit was 47.7 today. He was seen in follow up by Nurse Practitioner, Monika Castellano. He was assisted to [facility]. Assessment completed. At 11:20 phlebotomy started [...] 04/27/2022 documented in this encounter Care Teams Barrel Handler Relationship Specialty Start Date End Date Christine Herzog MD [address] [place] [address] PCP - General Internal Medicine 12/02/21 Trey Pinedo MD [address] [facility] [address] [place] [address] Consulting Physician Neurology 05/09/19 Albert Craft MD [address] [place] [address] Consulting Physician Gastroenterology 03/11/22 Chintan Figueroa MD [address] [place] [address] Consulting Physician Hematology and Oncology 03/11/22 Jameel Bloom DPM [address] [place] [address] Consulting Physician Orthotics 03/11/22 Gadiel Genao MD [address] [place] [address] Surgeon Vascular Surgery 03/11/22 documented as of this encounter
--- OUTSIDE RECORDS SUMMARY | 2024-06-18 19:12 | XMS_ITS | Encounter Summary ---
Author Organization [facility] Medical [facility] Address [address] [facility] [address] [place] [address] Care Team Providers Care Puddler Helper Name Role Phone Wesley Em MD Primary Care Provider [phone] Trey Pinedo MD Unavailable [phone] Encounter Details Date Type Department Care Team (Late st Contact Info) Description 11/03/2021 Telephone [facility] 2 [facility] [address] [place] [address] Wesley Em MD [address] [place] [address] [address] [place] [address] Social History Tobacco Use Types [...] file 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 Crfat's office is booked out past and patient has a scheduled appointment to transfer to [facility], referral for Dr. Craft has been placed under [facility]. Their office will contact patient to schedule. [...] on filedocumented in this encounter Care Teams Puddler Helper Relationship Specialty Start Date End Date Wesley Em MD PCP - General 09/30/16 12/01/21 Trey Pinedo MD [address] [place] [address] [place] [address] Consulting Physician Neurology 05/09/19 documented as of this encounter
--- OUTSIDE RECORDS SUMMARY | 2024-06-18 19:12 | XMS_ITS | Encounter Summary ---
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 - 12/10/2021 9:47 AM [facility] is ordering Home Services for PT and OT, and wants to know if GG willfollow and sign? They want to start with patient on Monday. Verbal okay. Please Advise. documented in this encounter Plan of Treatment Not on file documented as of this encounter Visit Diagnoses Not on filedocumented in this encounter Care Teams Endodontic Assistant Relationship Specialty Start Date End Date Christine Herzog MD [address] [facility] [address] [place] [address] PCP - General Internal Medicine 12/02/21 Trey Pinedo MD [address] [facility] [address] [place] [address] Consulting Physician Neurology 05/09/19 documented as of this encounter
--- OUTSIDE RECORDS SUMMARY | 2024-06-18 19:12 | XMS_ITS | Encounter Summary ---
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 TB: TB Report ID: [id number] Reading Location: [place] [address] us Saleem Garber MD IMG XR PROCEDURES Final Re sult documented in this encounter Visit Diagnoses Not on filedocumented in this encounter Care Teams Load Blocker Relationship Specialty Start Date End Date Christine Herzog MD [address] [facility] [address] [place] [address] PCP - General Internal Medicine 12/02/21 Trey Pinedo MD [address] [facility] [address] [place] [address] Consulting Physician Neurology 05/09/19 documented as of this encounter
--- OUTSIDE RECORDS SUMMARY | 2024-06-18 19:13 | XMS_ITS | Encounter Summary ---
Author Organization [facility] Address [address] [place] [address] Phone Care Team Providers Care Personalized Living Manager Nurse Name Role Phone Wesley Em MD Primary Care Provider [phone] Trey Pinedo MD Unavailable Encounter Details Date Type Department Care Team (Late st Contact Info) Description 04/20/2021 3:00 PM CDT Office Visit [facility] Oncology [address] [place] [address] Medical Office [facility] [address] [phone] Chintan Figueroa MD [address] [place] [address] Polycythemia Social History Tobacco Use Types Packs/Day [...] than three times a week 12/31/2020 Attends Yazdanism Services Not on file 12/31 Active Member [...] on file 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 04/20/2021 Chintan Figueroa MD Account Liaison Internal Medicine-Medical Oncology [facility] in [place] - Physicians in [address] [address] Office: After Hours and Weekends: Celery Wrapper completed using M*Modal fluency direct speaking software, therefore, field service manager variances may occur. HEMATOLOGY HISTORY: 01/26/2021 --The [...] tells me that he did see a management lecturer here in [place], Dr. Hoskins, several years ago who recommended [...] taking testosterone in any form nor any qlex-btm-fdducte androgen type erb or supplement. His significant [...] than three times a week ??? Attends Yazdanism Services: Not on file ??? Active Member [...] Type 2 diabetes mellitus with hyperlipidemia (CMS/HCC) ([facility]) 10/25/2019 ??? Cerebrovascular arteriosclerosis 05/20/2019 ??? Bilateral carotid artery disease (CMS/HCC) ([facility]) 05/20/2019 ??? TIA (transient ischemic attack) 05/08/2019 ??? History of noncompliance with medical treatment 05/08/2019 ??? History of colon polyps 11/17/2018 ??? Bladder stones 2017 ??? Coronary artery disease involving manzanita coronary artery of manzanita heart without angina pectoris 2017 ??? Chronic [...] on: 05/20/2021 01:51 PM Modules accepted: Orders POSTER INSTALLER documented in this encounter Plan of [...] Re sult Performing Organization Address City/[facility]/ZIP Co de Phone Number [facility] (BETTY) 1 [facility] [place] [address] * (ABNORMAL) Iron profile w/ IBC (2021 2:25 PM CDT) Iron 31(L) 50 - 150 mcg/dL [facility] ([facility]) TIBC 283 250 - 400 mcg/dL [facility] ([facility]) Transferrin saturation 11(L) 20 - 50 % [facility] ([facility]) Blood 2021 2:25 PM CDT 2021 3:03 PM CDT Chintan Figueroa MD LAB BLOOD ORDERABLES Final Re sult [facility] ([facility]) 1 [facility] [place] [address] * CBC with auto differential (09/14/2021 3:00 [...] 41.6 35.7 - 48.1 fL [facility] (EBTTY) NRBC abs Not Measured 0.00 - 0.01 K/cumm [facility] ([facility]) Blood 09/14/2021 3:00 PM CDT 09/14/2021 3:02 PM CDT Chintan Figueroa MD LAB BLOOD ORDERABLES Final Re sult [facility] ([facility]) 1 [facility] Department [place] [address] * (ABNORMAL) CBC with auto differential (08/17/2021 2:40 PM BILL POSTER INSTALLER) Pathologist [facility] WBC 6.5 3.8 - 9.9 K/cumm [facility] [...] [facility] ([facility]) Blood 08/17/2021 2:40 PM BILL POSTER INSTALLER 08/17/2021 2:40 PM BILL POSTER INSTALLER us Chintan Figueroa MD LAB BLOOD ORDERABLES Final Re sult [facility] ([facility]) 1 [facility] Department of Laboratories [place], [place] [id number] * CBC with auto differential (07/20/2021 2:55 PM BILL POSTER INSTALLER) WBC 5.0 3.8 - 9.9 K/cumm [facility] [...] [facility] ([facility]) Blood 07/20/2021 2:55 PM BILL POSTER INSTALLER 07/20/2021 3:00 PM BILL POSTER INSTALLER Chintan Figueroa MD LAB BLOOD ORDERABLES Final Re sult [facility] ([facility]) 1 [facility] Department of Laboratories [place] [id number] * CBC with auto differential (06/22/2021 2:05 PM BILL POSTER INSTALLER) WBC 6.9 3.8 - 9.9 K/cumm [facility] [...] [facility] ([facility]) Blood 06/22/2021 2:05 PM BILL POSTER INSTALLER 06/22/2021 2:10 PM BILL POSTER INSTALLER Chintan Figueroa MD LAB BLOOD ORDERABLES Final Re sult [facility] ([facility]) 1 [facility] [place] [address] * CBC with auto differential (05/20/2021 1:55 PM BILL POSTER INSTALLER) WBC 6.6 3.8 - 9.9 K/cumm [facility] [...] [facility] ([facility]) Blood 05/20/2021 1:55 PM BILL POSTER INSTALLER 05/20/2021 1:59 PM BILL POSTER INSTALLER Chintan Figueroa MD LAB BLOOD ORDERABLES Final Re sult [facility] ([facility]) 1 [facility] [place] [address] documented in this encounter Visit Diagnoses Diagnosis Polycythemia Polycythemia, secondary documented in this encounter Orders Appointment Requests Count Last Ordered Date Fi rst Ordered Date ONCBCN CLINIC APPOINTMENT REQUEST 2 022 04/20/2021 ON[facility] INFUSION APPT REQUEST 6 2021 05/20/2021 ON[facility] LAB APPOINTMENT 6 10/20/202105/20 documented in this encounter Care Teams Personalized Living Manager Nurse Relationship Specialty Start Date End Date Wesley Em MD PCP - General 09/30/16 12/01/21 Trey Pinedo MD [address] [facility] [address] [place] [address] [address] Consulting Physician Neurology 05/09/19 documented as of this encounter
--- OUTSIDE RECORDS SUMMARY | 2024-06-18 19:13 | XMS_ITS | Encounter Summary ---
Author Organization [facility] Address [address] [facility] [address] [place] [address] Phone Care Team Providers Care Color Expert Name Role Phone Wesley Em MD Primary Care Provider [phone] Trey Pinedo MD Unavailable [phone] Reason for Referral * MRI/CAT/PET Scan (Routine) - Closed Specialty Diagnoses / Procedures Referred By Jomar villela Referred To Contact Radiology Diagnoses Bilateral carotid artery disease (HCC) Procedures CTA Head Neck W WO Contrast Gadiel Genao MD Phone: tel: fax: [facility] 1 [place] [address] Referral ID Status Reason Start Date Expiration Date Visits Re quested Visits Authorized [id number] Closed 04/28/2021 05/28/2022 1 1 Encounter Details Date Type Department Care Team (Late st Contact Info) Description 04/28/2021 Orders Only [facility] Surgery [address] [facility] 8th [place] [address] [place] [id number] Gadiel Genao MD [address] [facility] [id number] [place] [address] Bilateral carotid artery disease (CMS/HCC) (HCC) (Primary [...] on file Legal Sex Male 6:00 PM POWDERED SUGAR SUPERVISOR Gender Identity Not on file Sexual Orientation Straight 01/23/2021 10 :16 PM CDT documented as of this encounter Plan of Treatment Not on file documented as of this encounter Results * CTA Head Neck W WO Contrast (05/25/2021 2:40 PM POWDERED SUGAR SUPERVISOR) Anatomical Region Laterality Modality Head and Neck N/A Computed Tomogra phy 05/25/2021 3:52 PM POWDERED SUGAR SUPERVISOR Impressions 05/25/2021 4:59 PM POWDERED SUGAR SUPERVISOR No acute intracranial abnormality. Minimal atherosclerotic calcifications in the bilateral carotid bulbs without stenosis. Dictated by: Milka Cano MD The radiology attending physician has personally reviewed this study, and had reviewed and/or edited this written report and agrees with it. Electronically signed by: Nadine Soliman M.D. Narrative 05/25/2021 4:59 PM POWDERED SUGAR SUPERVISOR EXAMINATION: Computed tomography angiography (CTA) of [...] the bilateral cavernous segments causing up to pltq-st-bclhdpix stenosis. The umxqtz-fk-Qtnxse is complete. The anterior and middle cerebral [...] the bilateral cavernous segments causing up to lroo-no-arwtllqy stenosis. The afpsww-lo-Ylxhiv is complete. The anterior and middle cerebral [...] arterioles documented in this encounter Care Teams Color Expert Relationship Specialty Start Date End Date Wesley Em MD PCP - General 09/30/16 12/01/21 Trey Pinedo MD [address] [place] [address] [address] [place] [address] Consulting Physician Neurology 05/09/19 documented as of this encounter
--- OUTSIDE RECORDS SUMMARY | 2024-06-18 19:13 | XMS_ITS | Encounter Summary ---
Author Organization [facility] Address [address] [facility] [place] [address] Care Team Providers Care Bead Maker Name Role Phone Wesley Em MD Primary Care Provider [phone] Trey Pinedo MD Unavailable [phone] Encounter Details Date Type Department Care Team (Late st Contact Info) Description 04/26/2021 Telephone [place] [facility] 2 [facility] [address] [place] [address] Wesley Em MD [address] [place] [address] [address] [place], [place] [id number] Social History Tobacco Use Types Packs/Day Years [...] than three times a week 12/31/2020 Attends Sabianist Services Not on file 12/31 Active Member [...] Legal Sex Male 6: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
--- OUTSIDE RECORDS SUMMARY | 2024-06-18 19:13 | XMS_ITS | Encounter Summary ---
Author Organization [facility] Healthcare Address [address] [place] [address] Care Team Providers Care Talent Scout Name Role Phone Wesley Em MD Primary Care Provider [phone] Trey Pinedo MD Unavailable [phone] Reason for Referral * MRI/CAT/PET Scan (Routine) - Closed Specialty Diagnoses / Procedures Referred By Contac t Referred To Contact Radiology Diagnoses Bilateral carotid artery disease (HCC) Procedures CTA Head Neck W WO Contrast Gadiel Genao MD Phone: tel: fax: [address] [address] Referral ID Status Reason Start Date Expiration Date Visits Re quested Visits Authorized [id number] Closed 04/28/2021 05/28/2022 1 1 NG HAND Reason for Visit * MRI/CAT/PET Scan (Routine) - Closed Specialty Diagnoses / Procedures Referred By Contac t Referred To Contact Radiology Diagnoses Bilateral carotid artery disease (HCC) Procedures CTA Head Neck W WO Contrast Gadiel Genao MD Phone: tel: fax: [address] [address] Referral ID Status Reason Start Date Expiration Date Visits Re quested Visits Authorized [id number] Closed 04/28/2021 05/28/2022 1 1 Encounter Details Date Type Department Care Team (Latest Contact Info) Description 05/25/2021 1:29 PM ROVING HAND - 05/25/2021 11:59 PM ROVING HAND Hospital Encounter [facility] [address] [place] [address] Gadiel Genao MD [address] [facility] [address] [place] [address] Bilateral carotid artery disease (CMS/HCC) (HCC) Discharge [...] on file Legal Sex Male 6:00 PM ROVING HAND Gender Identity Not on file Sexual [...] Read Routine (OP Routine) 05/25/2021 2:40 PM ROVING HAND Bilateral carotid artery disease (CMS/HCC) (HCC) POCT CREATININE - DEVICE Routine 05/25/2021 2:17 PM ROVING HAND documented in this encounter Results * CTA Head Neck W WO Contrast (05/25/2021 2:40 PM ROVING HAND) Anatomical Region Laterality Modality Head and Neck N/A Computed Tomogra phy 05/25/2021 3:52 PM ROVING HAND Impressions 05/25/2021 4:59 PM ROVING HAND No acute intracranial abnormality. Minimal atherosclerotic calcifications in the bilateral carotid bulbs without stenosis. Dictated by: Milka Cano MD The radiology attending physician has personally reviewed this study, and had reviewed and/or edited this written report and agrees with it. Electronically signed by: Nadine Soliman M.D. Narrative 05/25/2021 4:59 PM ROVING HAND EXAMINATION: Computed tomography angiography (CTA) of the [...] the bilateral cavernous segments causing up to biqk-kd-cpsrdsgb stenosis. The hlsttx-ky-Vyldon is complete. The anterior and middle cerebral [...] the bilateral cavernous segments causing up to copv-uo-xdovbhpx stenosis. The jyxzhx-gn-Zhlqxa is complete. The anterior and middle cerebral [...] sult * POCT creatinine (05/25/2021 2:17 PM ROVING HAND) Creatinine POC 1.1 0.7 - 1.3 mg/dL [facility] Blood 05/25/2021 2:17 PM ROVING HAND 05/25/2021 2:17 PM ROVING HAND Gadiel Genao MD LAB POCT ORDERABLES - TATUM CE Final Result [facility] Department [place] [address] documented in this encounter Visit Diagnoses Diagnosis [...] 1 dose Contrast Given 05/25/2021 2:25 PM ROVING HAND 94 mL documented in this encounter Orders Medications Ordered That Reg ht Not Have Been Administered Count Last Ordered Date First Ordered Date ioversoL (OPTIRAY 350) syrin ge syringe 100 mL 1 05/25/2021 documented in this encounter Care Teams Talent Scout Relationship Specialty Start Date End Date Wesley Em MD PCP - General 09/30/16 12/01/21 Trey Pinedo MD [address] [facility] [address] [place] [address] Consulting Physician Neurology 05/09/19 documented as of this encounter
--- OUTSIDE RECORDS SUMMARY | 2024-06-18 19:13 | XMS_ITS | Encounter Summary ---
Author Organization [facility] Healthcare Address [address] [place] [address] Care Team Providers Care Petroleum Terminal Plant Operator Name Role Phone Wesley Em MD Primary Care Provider [phone] Trey Pinedo MD Unavailable [phone] Reason for Visit * Reason Comments Phlebotomy Encounter Details Date Type Department Care Team (Late st Contact Info) Description 06/22/2021 3:15 PM DIETETIC ASSISTANT Infusion [facility] [address] [facility] [address] [place] [address] Polycythemia (Primary Dx) Social History Tobacco Use [...] on file Legal Sex Male 6:00 PM DIETETIC ASSISTANT Gender Identity Not on file Sexual Orientation Straight 01/23/2021 10 :16 PM CDT documented as of this encounter Last Filed Vital Signs Vital Sign Reading Time Taken Comments Blood Pressure 137/72 06/22/2021 3:12 PM DIETETIC ASSISTANT Pulse 72 06/22/2021 3:12 PM DIETETIC ASSISTANT Temperature - - Respiratory Rate 20 06/22/2021 3:12 PM DIETETIC ASSISTANT Oxygen Saturation 96% 06/22/2021 3:12 PM DIETETIC ASSISTANT Inhaled Oxygen Concentration - - Weight - [...] this time and left in stable condition. ETIC ASSISTANT documented in this encounter Plan of [...] 06/22/2021 documented in this encounter Care Teams Petroleum Terminal Plant Operator Relationship Specialty Start Date End Date Wesley Em MD PCP - General 09/30/16 12/01/21 Trey Pinedo MD [address] [facility] [place] [address] Consulting Physician Neurology 05/09/19 documented as of this encounter
--- OUTSIDE RECORDS SUMMARY | 2024-06-18 19:13 | XMS_ITS | Encounter Summary ---
Author Organization [facility] Address [address] [facility] [address] [place] [address] Care Team Providers Care Prison Warden Name Role Phone Wesley Em MD Primary Care Provider [phone] Trey Pinedo MD Unavailable [phone] Encounter Details Date Type Department Care Team (Late st Contact Info) Description 04/26/2021 Telephone [place] [facility] [address] [facility] [address] [place] [address] Wesley Em MD [address] [place] [address] [address] [place], [place] [address] Social History Tobacco Use Types Packs/Day Years [...] on file Legal Sex Male 6:00 PM CHIEF WARDEN Gender Identity Not on file Sexual Orientation [...] on filedocumented in this encounter Care Teams Prison Warden Relationship Specialty Start Date End Date Wesley Em MD PCP - General 09/30/16 12/01/21 Trey Pinedo MD [address] [place] [address] [address] [facility] [place] [address] Consulting Physician Neurology 05/09/19 documented as of this encounter
--- OUTSIDE RECORDS SUMMARY | 2024-06-18 19:13 | XMS_ITS | Encounter Summary ---
Author Organization [facility] Healthcare Address [address] [place] [address] Care Team Providers Care Arc Cutter Plasma Arc Name Role Phone Wesley Em MD Primary Care Provider [phone] Trey Pinedo MD Unavailable [phone] Reason for Visit * Reason Comments Phlebotomy Encounter Details Date Type Department Care Team (Late st Contact Info) Description 03/30/2021 3:00 PM CDT Infusion [facility] [address] [facility] [address] [place] [address] Polycythemia (Primary Dx) Social History Tobacco Use [...] file Legal Sex Male 6:00 PM CLINICAL PSYCHOLOGIST Gender Identity Not on file Sexual Orientation [...] 03/30/2021 documented in this encounter Care Teams Arc Cutter Plasma Arc Relationship Specialty Start Date End Date Wesley Em MD PCP - General 09/30/16 12/01/21 Trey Pinedo MD [address] [facility] [address] [place] [address] Consulting Physician Neurology 05/09/19 documented as of this encounter
--- OUTSIDE RECORDS SUMMARY | 2024-06-18 19:13 | XMS_ITS | Encounter Summary ---
Author Organization [facility] Address [address] [place] [address] Phone Care Team Providers Care Dowel Pin Worker Name Role Phone Wesley Em MD Primary Care Provider [phone] Trey Pinedo MD Unavailable [phone] Reason for Referral * MRI/CAT/PET Scan (Routine) - Closed Specialty Diagnoses / Procedures Referred By Jomar villela Referred To Contact Radiology Diagnoses Carotid artery disease (HCC) PVD (peripheral vascular disease) (HCC) Procedures CTA Head Neck W WO Contrast Lan Genao MD Phone: tel: fax: [address] [address] Referral ID Status Reason Start Date Expiration Date Visits Re quested Visits Authorized [id number] Closed 05/25/2021 06/24/2022 1 1 OR BEHAVIORAL SCIENTIST * Diagnostic Imaging (Routine) - Closed Specialty Diagnoses / Procedures Referred By Jomar villela Referred To Contact Diagnoses Carotid artery disease (HCC) PVD (peripheral vascular disease) (HCC) Procedures US Arterial Doppler Lower Extremity Bilateral Lan Genao MD Phone: tel: fax: [facility] (All Locations) Referral ID Status Reason Start Date Expiration Date Visits Re quested Visits Authorized [id number] Closed 05/25/2021 08/02/2022 99 99 OR BEHAVIORAL SCIENTIST Reason for Visit * Consultation (Routine) - Closed Specialty Diagnoses / Procedures Referred By Contac t Referred To Contact Vascular Surgery Diagnoses Carotid artery disease (HCC) Wesley Em MD [address] [place] [address] [place] [address] Phone: tel: fax: Lan Genao MD [address] [facility] [id number] [place] [address] Phone: tel: fax: Referral ID Status Reason Start Date Expiration Date V isits Requested Visits Authorized [id number] Closed Specialty Services Required 04/27/2021 05/27/2022 12 12 Encounter Details Date Type Department Care Team (Late st Contact Info) Description 05/25/2021 3:00 PM SENIOR BEHAVIORAL SCIENTIST Office Visit [facility] Surgery [address] [facility] 8th [place] [address] [place] [address] Lan Genao MD [address] [facility] [id number] [place] [address] PVD (peripheral vascular disease) (CMS/HCC) (HCC) (Primary [...] file Legal Sex Male 6:00 PM SENIOR BEHAVIORAL SCIENTIST Gender Identity Not on file Sexual Orientation Straight 01/23/2021 10 :16 PM CDT documented as of this encounter Last Filed Vital Signs Vital Sign Reading Time Taken Comments Blood Pressure 224/84 05/25/2021 3:02 PM SENIOR BEHAVIORAL SCIENTIST Pulse 67 05/25/2021 3:02 PM SENIOR BEHAVIORAL SCIENTIST Temperature - - Respiratory Rate - - Oxygen Saturation 97% 05/25/2021 3:02 PM SENIOR BEHAVIORAL SCIENTIST Inhaled Oxygen Concentration - - Weight 86.2 kg (190 lb 0.6 oz) 05/25/2021 3:02 P M SENIOR BEHAVIORAL SCIENTIST Height 177.8 cm (5' 10 ) 05/25/2021 3:02 PM SENIOR BEHAVIORAL SCIENTIST Body Mass Index 27.27 05/25/2021 3:02 PM SENIOR BEHAVIORAL SCIENTIST documented in this encounter Progress Notes [...] years ago. He does not followwith a skid strapper. He states his main concern is his [...] Lan Genao MD at 05/25/2021 8:51 PM SENIOR BEHAVIORAL SCIENTIST OR BEHAVIORAL SCIENTIST documented in this encounter Plan of Treatment Not on file documented as of this encounter Results * US Arterial Doppler Lower Extremity Bilateral (07/12/2022 3:19 PM SENIOR BEHAVIORAL SCIENTIST) Anatomical Region Laterality Modality Vascular Bilateral Ultrasound 07/12/2022 1:57 PM SENIOR BEHAVIORAL SCIENTIST Narrative 07/12/2022 3:25 PM SENIOR BEHAVIORAL SCIENTIST [facility] - Department of Vascular Surgery, Vascular Laboratory [address] [place] [address] Lower Extremity Arterial Doppler Report Patient Name: VERNA ZUNIGA : 1945 Study Date: 07/12/2022 1:57:00 PM Gender: M Tech: Location: [facility] Ref.Provider: LAN GENAO Quality: Adequate Order Provider: LAN GENAO Procedures: Arterial Report: Bilateral lower extremity arterial Doppler exam at rest. Indications: PVD (peripheral vascular disease). Measurements: Right - ?Left - ? Measurement ?Value ?Units ?Measurement ?Value ?Units ? Rt Brachial Pressure ? 212 ?mmHg ? Lt Brachial Pressure ? 219 ?mmHg ? Rt CRITICAL CARE SPECIALIST Pressure ?209 ?mmHg ? Lt CRITICAL CARE SPECIALIST Pressure ?236 ?mmHg ? Rt DPA Pressure [...] - ?Left - ? - Findings: Performing Key Holder: Ame Goldstein RVT/ Nayeli Reyes (student). Right [...] MD [facility] 2022-07-12 15:25:48 SENIOR BEHAVIORAL SCIENTIST CC: CC: Procedure Note Praful Quiros MD - 07/12/2022 [facility] - Department of Vascular Surgery,Vascular Laboratory [address] [place] [address] Lower Extremity Arterial Doppler Report Patient Name: VERNA ZUNIGAPatient ID: [id number] : [id number] Date: 07/12/2022 1:57:00 PM Gender: MAccession #: [id number] Tech: Location: [facility] Ref.Provider: LAN GENAOQuality: Adequate Order Provider: LAN GENAO Procedures: Arterial Report: Bilateral lower extremity arterial Doppler exam at rest. Indications: PVD (peripheral vascular disease). Measurements: Right - Left - Measurement Value Units Measurement ValueUnits Rt Brachial Pressure 212 mmHg Lt Brachial Pressure 219mmHg Rt CRITICAL CARE SPECIALIST Pressure 209 mmHg Lt CRITICAL CARE SPECIALIST Pressure 236mmHg Rt DPA Pressure 202 mmHg [...] Right - Left - - Findings: Performing Key Holder: Ame Goldstein RVT/ Nayeli Reyes (student). Right [...] MD [facility] 2022-07-12 15:25:48 SENIOR BEHAVIORAL SCIENTIST CC: CC: us Lan Genao MD IM US PROCEDURES Final Re sult * CTA Head Neck W WO Contrast (07/12/2022 1:44 PM SENIOR BEHAVIORAL SCIENTIST) Anatomical Region Laterality Modality Head and Neck N/A Computed Tomogra phy 07/12/2022 3:06 PM SENIOR BEHAVIORAL SCIENTIST Impressions 07/12/2022 4:43 PM SENIOR BEHAVIORAL SCIENTIST 1. ??No acute intracranial findings. 2. ??Unchanged [...] Simon Redd M.D. Narrative 07/12/2022 4:43 PM SENIOR BEHAVIORAL SCIENTIST EXAMINATION: Computed tomography angiography (CTA) of the [...] airway is widely patent. Angiographic findings: The ggcpfk-hz-Qzqnfu is complete. The left vertebral artery is [...] airway is widely patent. Angiographic findings: The gxoivn-zu-Haawbq is complete. The left vertebral artery is [...] by: Simon Redd M.D. Lan Genao MD [facility] PROCEDURES Final Re sult documented in [...] 21 documented in this encounter Care Teams Dowel Pin Worker Relationship Specialty Start Date End Date Wesley Em MD PCP - General 09/30/16 12/01/21 Trey Pinedo MD [address] [place] [address] [address] [facility] [place] [address] Consulting Physician Neurology 05/09/19 documented as of this encounter
--- OUTSIDE RECORDS SUMMARY | 2024-06-18 19:13 | XMS_ITS | Encounter Summary ---
Author Organization [facility] Healthcare Address [address] [place] [address] Care Team Providers Care Ear Nose Throat Surgeon Name Role Phone Wesley Em MD Primary Care Provider [phone] Trey Pinedo MD Unavailable [phone] Encounter Details Date Type Department Care Team (Late st Contact Info) Description 03/30/2021 2:30 PM CDT Lab [facility] Physicians 4 [facility] [address] [place] [address] Polycythemia Social History Tobacco Use Types Packs/Day [...] on file Legal Sex Male 6:00 PM SHIFT PRODUCTION SUPERVISOR Gender Identity Not on file Sexual [...] Final Re sult [facility] ([facility]) 1 [facility] Department [place] [address] * (ABNORMAL) CBC with auto differential (03/30/2021 [...] Final Re sult [facility] ([facility]) 1 [facility] Department [place] [address] documented in this encounter Visit Diagnoses Diagnosis Polycythemia Polycythemia, secondary documented in this encounter Orders Appointment Requests Count Last Ordered Date Fi rst Ordered Date ONCBCN LAB APPOINTMENT 1 03/30/2021 documented in this encounter Care Teams Ear Nose Throat Surgeon Relationship Specialty Start Date End Date Wesley Em MD PCP - General 09/30/16 12/01/21 Trey Pinedo MD [address] [facility] [address] [place] [address] Consulting Physician Neurology 05/09/19 documented as of this encounter
--- OUTSIDE RECORDS SUMMARY | 2024-06-18 19:13 | XMS_ITS | Encounter Summary ---
Author Organization [facility] Healthcare Address [address] [place] [address] Care Team Providers Care Foundry Helper Name Role Phone Wesley Em MD Primary Care Provider [phone] Trey Pinedo MD Unavailable [phone] Reason for Visit * Reason Comments OP Infusion Here for phlebotomy, Encounter Details Date Type Department Care Team (Late st Contact Info) Description 04/20/2021 3:15 PM CDT Infusion [facility] 4 [facility] [address] [place] [address] Social History Tobacco Use Types Packs/Day Years [...] on file Legal Sex Male 6:00 PM ADULT NEUROPSYCHOLOGIST Gender Identity Not on file Sexual Orientation [...] on filedocumented in this encounter Care Teams Foundry Helper Relationship Specialty Start Date End Date Wesley Em MD PCP - General 09/30/16 12/01/21 Trey Pinedo MD [address] [facility] [place] [address] Consulting Physician Neurology 05/09/19 documented as of this encounter
--- OUTSIDE RECORDS SUMMARY | 2024-06-18 19:13 | XMS_ITS | Encounter Summary ---
Author Organization [facility] Healthcare Address [address] [place] [address] Care Team Providers Care Medical Imaging Specialist Name Role Phone Wesley Em MD Primary Care Provider [phone] Trey Pinedo MD Unavailable [phone] Reason for Visit * Reason Comments Phlebotomy Encounter Details Date Type Department Care Team (Late st Contact Info) Description 05/20/2021 3:15 PM AUTOMOTIVE ENGINEERING TECHNICIAN Infusion [facility] [address] [facility] [address] [place] [address] Polycythemia (Primary Dx) Social History Tobacco Use [...] than three times a week 12/31/2020 Attends [employer] Not on file 12/31 Active Member [...] file Legal Sex Male 6:00 PM AUTOMOTIVE ENGINEERING TECHNICIAN Gender Identity Not on file Sexual Orientation Straight 01/23/2021 10 :16 PM CDT documented as of this encounter Last Filed Vital Signs Vital Sign Reading Time Taken Comments Blood Pressure 147/91 05/20/2021 2:46 PM AUTOMOTIVE ENGINEERING TECHNICIAN Pulse 76 05/20/2021 2:46 PM AUTOMOTIVE ENGINEERING TECHNICIAN Temperature - - Respiratory Rate 20 05/20/2021 2:46 PM AUTOMOTIVE ENGINEERING TECHNICIAN Oxygen Saturation 97% 05/20/2021 2:46 PM AUTOMOTIVE ENGINEERING TECHNICIAN Inhaled Oxygen Concentration - - Weight - [...] this time and left in stable condition. MOTIVE ENGINEERING TECHNICIAN documented in this encounter Plan of [...] 05/20/2021 documented in this encounter Care Teams Medical Imaging Specialist Relationship Specialty Start Date End Date Wesley Em MD PCP - General 09/30/16 12/01/21 Trey Pinedo MD [address] [facility] [place] [address] Consulting Physician Neurology 05/09/19 documented as of this encounter
--- OUTSIDE RECORDS SUMMARY | 2024-06-18 19:13 | XMS_ITS | Encounter Summary ---
Author Organization [facility] Address [address] [facility] [address] [place] [address] Care Team Providers Care Local Superintendent Name Role Phone Wesley Em MD Primary Care Provider [phone] Trey Pinedo MD Unavailable [phone] Encounter Details Date Type Department Care Team (Late st Contact Info) Description 03/05/2021 Telephone [facility] [address] [facility] [address] [place] [address] Wesley Em MD [address] [place] [address] [address] [place] [address] Social History Tobacco Use Types [...] on file Legal Sex Male 6:00 PM LANDSCAPING SPECIALIST Gender Identity Not on file Sexual [...] on filedocumented in this encounter Care Teams Local Superintendent Relationship Specialty Start Date End Date Wesley Em MD PCP - General 09/30/16 12/01/21 Trey Pinedo MD [address] [place] [address] [address] [place] [address] Consulting Physician Neurology 05/09/19 documented as of this encounter
--- OUTSIDE RECORDS SUMMARY | 2024-06-18 19:13 | XMS_ITS | Encounter Summary ---
Author Organization [facility] Medical Group Address [address] [facility] [address] [place] [address] Care Team Providers Care Lawn And Garden Technician Name Role Phone Wesley Em MD Primary Care Provider [phone] Trey Pinedo MD Unavailable [phone] Reason for Referral * Diagnostic Imaging (Routine) - Closed Specialty Diagnoses / Procedures Referred By Contac t Referred To Contact Diagnoses Carotid artery disease (HCC) Other cerebral infarction (HCC) Procedures Vl US Carotids Wesley Em MD [address] [place] [address] [address] [place] [address] Phone: tel: fax: [address] [address] Referral ID Status Reason Start Date Expiration Date Visits Re quested Visits Authorized [id number] Closed 03/05/2021 04/04/2022 1 1 Encounter Details Date Type Department Care Team (Late st Contact Info) Description 03/05/2021 Orders Only [facility] [address] [address] Wesley Em MD [address] [place] [address] [address] [place] [address] Carotid artery disease (CMS/HCC) (HCC) (Primary [...] on file Legal Sex Male 6:00 PM POTATO PANCAKE FRIER Gender Identity Not on file Sexual Orientation [...] report supersedes the original report dated 04/22/2021. Card Filer (Bere) at Dr. Em's office is sending the report as high priority to Dr. Medina, covering for Dr. Em. THIS IS AN ELECTRONICALLY VERIFIED FINAL REPORT 04/23/2021 9:38 AM - Electronically signed by Kike Bach M.D. CH: ALFREDA D: ??04/23/2021 9:38 AM T: ??04/23/2021 9:38 AM Report ID: [id number] Reading Location: ??[id number] Narrative 04/22/2021 5:15 PM CDT EXAM DESCRIPTION: [...] Artery: ?? Antegrade direction of flow. Left: Fpow-sb-[id number] intimal thickening and plaque are seen. Distal [...] PM T: ??04/22/2021 5:15 PM Report ID: [id number] Reading Location: ??[id number] Procedure Note Kike Bach Jr., MD - [...] Vertebral Artery: Antegrade direction of flow. Left: Hjvw-gq-zmqbifmp intimal thickening and plaque are seen. Distal [...] Kike Bach M.D. CH: ALFREDA Report ID: [id number] Reading Location: [id number] Wesley Em MD [facility] [place] PROCEDURES Edited Resul t - Final documented in this encounter Visit Diagnoses Diagnosis Carotid artery disease (HCC)- Primary Unspecified disorders of arteries and arterioles Other cerebral infarction (HCC) Carotid artery disease (HCC) Unspecified disorders of arteries and arterioles Other cerebral infarction (HCC) documented in this encounter Care Teams Lawn And Garden Technician Relationship Specialty Start Date End Date Wesley Em MD PCP - General 09/30/16 12/01/21 Trey Pinedo MD [address] [facility] [address] [place] [address] Consulting Physician Neurology 05/09/19 documented as of this encounter
--- OUTSIDE RECORDS SUMMARY | 2024-06-18 19:13 | XMS_ITS | Encounter Summary ---
Author Organization [facility] Healthcare Address [address] [place] [address] Care Team Providers Care Automobile Parker Name Role Phone Wesley Em MD Primary Care Provider [phone] Trey Pinedo MD Unavailable [phone] Reason for Visit * Reason Comments Phlebotomy Encounter Details Date Type Department Care Team (Late st Contact Info) Description 07/20/2021 3:15 PM BLINTZE ROLLER Infusion [facility] [address] [facility] [address] [place] [address] Polycythemia Social History Tobacco Use Types Packs/Day [...] than three times a week 12/31/2020 Attends [employer] Not on file 12/31 Active Member [...] on file Legal Sex Male 6:00 PM BLINTZE ROLLER Gender Identity Not on file Sexual Orientation Straight 01/23/2021 10 :16 PM CDT documented as of this encounter Last Filed Vital Signs Vital Sign Reading Time Taken Comments Blood Pressure 137/77 07/20/2021 3:48 PM BLINTZE ROLLER Pulse 73 07/20/2021 3:48 PM BLINTZE ROLLER Temperature 36.3 ??C (97.3 ??F) 07/20/2021 3:48 [...] obtained unable to obtain all 500ml, Monika, ADMINISTRATIVE OFFICE MANAGER aware and stated for patient to just return at his next scheduled appointment. Patient observed for 15 mintues following, vitals stable. AVS printed and reviewed with patient. Patient had no further questions at this time and left in stable condition. TZE ROLLER documented in this encounter Plan of Treatment Not on file documented as of this encounter Visit Diagnoses Diagnosis Polycythemia Polycythemia, secondary documented in this encounter Orders Appointment Requests Count Last Ordered Date Fi rst Ordered Date ONCBCN INFUSION APPT REQUEST 1 07/20/2021 documented in this encounter Care Teams Automobile Parker Relationship Specialty Start Date End Date Wesley Em MD PCP - General 09/30/16 12/01/21 Trey Pinedo MD [address] [facility] [address] [place] [address] [address] Consulting Physician Neurology 05/09/19 documented as of this encounter
--- OUTSIDE RECORDS SUMMARY | 2024-06-18 19:13 | XMS_ITS | Encounter Summary ---
Author Organization [facility] Medical Group Address [address] [facility] [address] [place] [address] Care Team Providers Care Manager Dairy Name Role Phone Wesley Em MD Primary Care Provider [phone] Trey Pinedo MD Unavailable [phone] Reason for Visit * Reason Comments Follow-up Encounter Details Date Type Department Care Team (Late st Contact Info) Description 06/03/2021 3:00 PM OPERATIONAL RISK CONSULTANT Office Visit [facility] 2 [facility] [address] [place] [address] Wesley Em MD [address] [place] [address] Polycythemia (Primary Dx); Overweight with body mass [...] file Legal Sex Male 6:00 PM OPERATIONAL RISK CONSULTANT Gender Identity Not on file Sexual Orientation Straight 01/23/2021 10 :16 PM CDT documented as of this encounter Last Filed Vital Signs Vital Sign Reading Time Taken Comments Blood Pressure 120/80 06/03/2021 3:10 PM OPERATIONAL RISK CONSULTANT Pulse 68 06/03/2021 3:10 PM OPERATIONAL RISK CONSULTANT Temperature - - Respiratory Rate 20 06/03/2021 3:10 PM OPERATIONAL RISK CONSULTANT Oxygen Saturation - - Inhaled Oxygen Concentration - - Weight 85.7 kg (189 lb) 06/03/2021 3:10 PM OPERATIONAL RISK CONSULTANT Height 177.8 cm (5' 10 ) 06/03/2021 3:10 PM OPERATIONAL RISK CONSULTANT Body Mass Index 27.12 06/03/2021 3:10 PM OPERATIONAL RISK CONSULTANT documented in this encounter Progress Notes [...] in agreement with the plan of care. ATIONAL RISK CONSULTANT documented in this encounter Plan of Treatment Not on file documented as of this encounter Visit Diagnoses Diagnosis Polycythemia- Primary Polycythemia, secondary Overweight with body mass index (BMI) of 27 to 27.9 in adult Bilateral carotid artery disease (HCC) Unspecified disorders of arteries and arterioles Mixed hyperlipidemia Essential hypertension Unspecified essential hypertension documented in this encounter Care Teams Manager Dairy Relationship Specialty Start Date End Date Wesley Em MD PCP - General 09/30/16 12/01/21 Trey Pinedo MD [address] [facility] [place] [address] Consulting Physician Neurology 05/09/19 documented as of this encounter
--- OUTSIDE RECORDS SUMMARY | 2024-06-18 19:13 | XMS_ITS | Encounter Summary ---
Author Organization [facility] Healthcare Address [address] [place] [address] Care Team Providers Care Co Founder And Chairman Name Role Phone Wesley Em MD Primary Care Provider [phone] Trey Pinedo MD Unavailable [phone] Reason for Visit * Reason Comments Phlebotomy Encounter Details Date Type Department Care Team (Late st Contact Info) Description 08/17/2021 3:15 PM SURGICAL PRODUCT SALES CONSULTANT Infusion [facility] [address] [facility] [address] [place] [address] Polycythemia Social History Tobacco Use Types Packs/Day [...] on file Legal Sex Male 6:00 PM SURGICAL PRODUCT SALES CONSULTANT Gender Identity Not on file Sexual Orientation Straight 01/23/2021 10 :16 PM CDT documented as of this encounter Last Filed Vital Signs Vital Sign Reading Time Taken Comments Blood Pressure 144/72 08/17/2021 3:18 PM SURGICAL PRODUCT SALES CONSULTANT Pulse 62 08/17/2021 3:18 PM SURGICAL PRODUCT SALES CONSULTANT Temperature 36.3 ??C (97.3 ??F) 08/17/2021 3:18 PM CS T Respiratory Rate 20 08/17/2021 3:18 PM SURGICAL PRODUCT SALES CONSULTANT Oxygen Saturation - - Inhaled [...] DONE AND CHARTED. REMINDED OF NEXT APPOINTMENT. ICAL PRODUCT SALES CONSULTANT documented in this encounter Plan of Treatment Not on file documented as of this encounter Visit Diagnoses Diagnosis Polycythemia Polycythemia, secondary documented in this encounter Orders Appointment Requests Count Last Ordered Date Fi rst Ordered Date ONCBCN INFUSION APPT REQUEST 1 08/17/2021 documented in this encounter Care Teams Co Founder And Chairman Relationship Specialty Start Date End Date Wesley Em MD PCP - General 09/30/16 12/01/21 Trey Pinedo MD [address] [place] [address] [address] [facility] [place] [address] Consulting Physician Neurology 05/09/19 documented as of this encounter
--- OUTSIDE RECORDS SUMMARY | 2024-06-18 19:13 | XMS_ITS | Encounter Summary ---
Author Organization [facility] Healthcare Address [address] [place] [address] Care Team Providers Care Route Sales Trainee Name Role Phone Wesley Em MD Primary Care Provider [phone] Trey Pinedo MD Unavailable [phone] Encounter Details Date Type Department Care Team (Late st Contact Info) Description 06/22/2021 3:00 PM DISHWASHING MACHINE REPAIRER Lab [facility] Physicians 4 [facility] [address] [place] [address] Polycythemia Social History Tobacco Use Types Packs/Day [...] on file Legal Sex Male 6:00 PM DISHWASHING MACHINE REPAIRER Gender Identity Not on file Sexual Orientation Straight 01/23/2021 10 :16 PM CDT documented as of this encounter Last Filed Vital Signs Vital Sign Reading Time Taken Comments Blood Pressure 151/90 06/22/2021 2:11 PM DISHWASHING MACHINE REPAIRER Pulse 69 06/22/2021 2:11 PM DISHWASHING MACHINE REPAIRER Temperature 35.8 ??C (96.4 ??F) 06/22/2021 2:11 PM CS T Respiratory Rate 20 06/22/2021 2:11 PM DISHWASHING MACHINE REPAIRER Oxygen Saturation 97% 06/22/2021 2:11 PM DISHWASHING MACHINE REPAIRER Inhaled Oxygen Concentration - - Weight 83.9 kg (185 lb) 06/22/2021 2:11 PM DISHWASHING MACHINE REPAIRER Height 177.8 cm (5' 10 ) 06/22/2021 2:11 PM DISHWASHING MACHINE REPAIRER Body Mass Index 26.54 06/22/2021 2:11 PM DISHWASHING MACHINE REPAIRER documented in this encounter Plan of Treatment Not on file documented as of this encounter Procedures Procedure Name Priority Date/Time Associated Diagnosis Comments DIFFERENTIAL AUTO Routine 06/22/2021 2:0 5 PM DISHWASHING MACHINE REPAIRER Polycythemia CBC WITH AUTO DIFFERENTIAL Routine 06/22/2021 2:05 PM DISHWASHING MACHINE REPAIRER Polycythemia documented in this encounter Results * Differential, auto (06/22/2021 2:05 PM DISHWASHING MACHINE REPAIRER) Neutrophil abs 4.5 1.7 - 6.5 K/cumm [...] revised on 2017. Blood 06/22/2021 2:05 PM DISHWASHING MACHINE REPAIRER 06/22/2021 2:10 PM DISHWASHING MACHINE REPAIRER Chintan Figueroa MD LAB BLOOD ORDERABLES Final Re sult [facility] ([facility]) 1 [facility] [place] [address] * CBC with auto differential (06/22/2021 2:05 PM DISHWASHING MACHINE REPAIRER) WBC 6.9 3.8 - 9.9 K/cumm [facility] [...] [facility] ([facility]) Blood 06/22/2021 2:05 PM DISHWASHING MACHINE REPAIRER 06/22/2021 2:10 PM DISHWASHING MACHINE REPAIRER Chintan Figueroa MD LAB BLOOD ORDERABLES Final Re sult [facility] ([facility]) 1 [facility] [place] [address] documented in this encounter Visit Diagnoses Diagnosis Polycythemia Polycythemia, secondary documented in this encounter Orders Appointment Requests Count Last Ordered Date Fi rst Ordered Date ONCBCN LAB APPOINTMENT 1 06/22/2021 documented in this encounter Care Teams Route Sales Trainee Relationship Specialty Start Date End Date Wesley Em MD PCP - General 09/30/16 12/01/21 Trey Pinedo MD [address] [place] [address] [address] [facility] [place] [address] Consulting Physician Neurology 05/09/19 documented as of this encounter
--- OUTSIDE RECORDS SUMMARY | 2024-06-18 19:13 | XMS_ITS | Encounter Summary ---
Author Organization [facility] Healthcare Address [address] [place] [address] Care Team Providers Care Veterinary Medical Officer Name Role Phone Wesley Em MD Primary Care Provider [phone] Trey Pinedo MD Unavailable [phone] Reason for Referral * Diagnostic Imaging (Routine) - Closed Specialty Diagnoses / Procedures Referred By Jomar villela Referred To Contact Diagnoses Carotid artery disease (HCC) Other cerebral infarction (HCC) Procedures [facility] Carotids Wesley Em MD [address] [place] [address] [address] [place] [address] Phone: tel: fax: [address] [phone] Referral ID Status Reason Start Date Expiration Date Visits Re quested Visits Authorized [id number] Closed 03/05/2021 04/04/2022 1 1 Reason for Visit * Diagnostic Imaging (Routine) - Closed Specialty Diagnoses / Procedures Referred By Jomar villela Referred To Contact Diagnoses Carotid artery disease (HCC) Other cerebral infarction (HCC) Procedures [facility] Carotids Wesley Em MD [address] [place] [address] DR [address]IN[address] [place] [address] Phone: tel: fax: [address] [phone] Referral ID Status Reason Start Date Expiration Date Visits Re quested Visits Authorized [id number] Closed 03/05/2021 04/04/2022 1 1 Encounter Details Date Type Department Care Team (Latest Contact Info) Description 04/22/2021 3:12 PM CDT - 04/22/2021 11:59 PM CDT Hospital Encounter [facility] 1 [place] [address] Wesley Em MD 2 [facility] [place] [address] Carotid artery disease (CMS/HCC) (HCC); Other cerebral [...] file Legal 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 Culture Manager (Bere) at Dr. Em's office is sending the report as high priority to Dr. Medina, covering for Dr. Em. THIS IS AN ELECTRONICALLY VERIFIED FINAL REPORT 04/23/2021 9:38 AM - Electronically signed by Kike Bach M.D. CH: ALFREDA D: ??04/23/2021 9:38 AM T: ??04/23/2021 9:38 AM Report ID: [id number] Reading Location: ??[id number] Narrative 04/22/2021 5:15 PM CDT EXAM DESCRIPTION: [...] Artery: ?? Antegrade direction of flow. Left: [id number] intimal thickening and plaque are seen. Distal [...] PM T: ??04/22/2021 5:15 PM Report ID: [id number] Reading Location: ??[id number] Procedure Note Kike Bach Jr., MD - [...] Vertebral Artery: Antegrade direction of flow. Left: Uqbp-gh-[id number] intimal thickening and plaque are seen. Distal [...] by Kike Bach M.D. CH: Report ID: [id number] Reading Location: [id number] Wesley Em MD [facility] PROCEDURES Edited Resul t - Final documented in this encounter Visit Diagnoses Diagnosis Carotid artery disease (HCC) Unspecified disorders of arteries and arterioles Other cerebral infarction (HCC) documented in this encounter Care Teams Veterinary Medical Officer Relationship Specialty Start Date End Date Wesley Em MD PCP - General 09/30/16 12/01/21 Trey Pinedo MD 4 [facility] [address] [place] [address] Consulting Physician Neurology 05/09/19 documented as of this encounter
--- OUTSIDE RECORDS SUMMARY | 2024-06-18 19:13 | XMS_ITS | Encounter Summary ---
Author Organization [facility] Medical Group Address [address] [facility] [address] [place] [address] Care Team Providers Care Blade Bender Furnace Tender Name Role Phone Wesley Em MD Primary Care Provider [phone] Trey Pinedo MD Unavailable [phone] Encounter Details Date Type Department Care Team (Late st Contact Info) Description 03/05/2021 Telephone [facility] 2 [facility] [address] [place] [address] Wesley Em MD [address] [place] [address] [address] [place] [address] Social History Tobacco Use Types [...] than three times a week 12/31/2020 Attends Adventism Services Not on file 12/31 Active Member [...] on file Legal Sex Male 6:00 PM DECORATING SUPERVISOR Gender Identity Not on file Sexual [...] on filedocumented in this encounter Care Teams Blade Bender Furnace Tender Relationship Specialty Start Date End Date Wesley Em MD PCP - General 09/30/16 12/01/21 Trey Pinedo MD [address] [place] [address] [place] [address] Consulting Physician Neurology 05/09/19 documented as of this encounter
--- OUTSIDE RECORDS SUMMARY | 2024-06-18 19:13 | XMS_ITS | Encounter Summary ---
Author Organization [facility] Healthcare Address [address] [place] [address] Care Team Providers Care Casino Cage Supervisor Name Role Phone Wesley Em MD Primary Care Provider Trey Pinedo MD Unavailable [phone] Encounter Details Date Type Department Care Team (Late st Contact Info) Description 04/20/2021 2:30 PM CDT Lab [facility] Physicians 4 [facility] [address] [place] [address] Polycythemia Social History Tobacco Use Types Packs/Day [...] on file Legal Sex Male 6:00 PM PASTE MIXER Gender Identity Not on file Sexual Orientation [...] Final Re sult [facility] ([facility]) 1 [facility] [place] [address] * (ABNORMAL) CBC with auto differential (04/20/2021 [...] sult [facility] ([facility]) 1 [facility] Department [place] [address] documented in this encounter Visit Diagnoses Diagnosis Polycythemia Polycythemia, secondary documented in this encounter Care Teams Casino Cage Supervisor Relationship Specialty Start Date End Date Wesley Em MD PCP - General 09/30/16 12/01/21 Trey Pinedo MD [address] [place] [address] [place] [address] Consulting Physician Neurology 05/09/19 documented as of this encounter
--- OUTSIDE RECORDS SUMMARY | 2024-06-18 19:13 | XMS_ITS | Encounter Summary ---
Author Organization [facility] Healthcare Address [address] [place] [address] Care Team Providers Care Licensed Practical Vocational Nurse Name Role Phone Wesley Em MD Primary Care Provider [phone] Trey Pinedo MD Unavailable [phone] Encounter Details Date Type Department Care Team (Late st Contact Info) Description 08/17/2021 3:00 PM FARM INSTRUCTOR Lab [facility] Physicians 4 [facility] [address] [place] [address] Polycythemia Social History Tobacco Use Types Packs/Day [...] than three times a week 12/31/2020 Attends Spiritism Services Not on file 12/31 Active Member [...] file Legal Sex Male 6:00 PM FARM INSTRUCTOR Gender Identity Not on file Sexual Orientation Straight 01/23/2021 10 :16 PM CDT documented as of this encounter Last Filed Vital Signs Vital Sign Reading Time Taken Comments Blood Pressure 167/91 08/17/2021 2:36 PM FARM INSTRUCTOR Pulse 59 08/17/2021 2:36 PM FARM INSTRUCTOR Temperature 36 ??C (96.8 ??F) 08/17/2021 2:36 PM FARM INSTRUCTOR Respiratory Rate 20 08/17/2021 2:36 PM FARM INSTRUCTOR Oxygen Saturation 97% 08/17/2021 2:36 PM FARM INSTRUCTOR Inhaled Oxygen Concentration - - Weight 83.2 kg (183 lb 6.4 oz) 08/17/2021 2:36 P M FARM INSTRUCTOR Height 177.8 cm (5' 10 ) 08/17/2021 2:36 PM FARM INSTRUCTOR Body Mass Index 26.32 08/17/2021 2:36 PM FARM INSTRUCTOR documented in this encounter Plan of Treatment Not on file documented as of this encounter Procedures Procedure Name Priority Date/Time Associated Diagnosis Comments DIFFERENTIAL AUTO Routine 08/17/2021 2:4 0 PM FARM INSTRUCTOR Polycythemia CBC WITH AUTO DIFFERENTIAL Routine 08/17/2021 2:40 PM FARM INSTRUCTOR Polycythemia documented in this encounter Results * Differential, auto (08/17/2021 2:40 PM FARM INSTRUCTOR) Neutrophil abs 4.2 1.7 - 6.5 K/cumm [...] revised on 2017. Blood 08/17/2021 2:40 PM FARM INSTRUCTOR 08/17/2021 2:40 PM FARM INSTRUCTOR Chintan Figueroa MD LAB BLOOD ORDERABLES Final Re sult [facility] ([facility]) 1 [facility] [place] [address] * (ABNORMAL) CBC with auto differential (08/17/2021 2:40 PM FARM INSTRUCTOR) WBC 6.5 3.8 - 9.9 K/cumm [facility] [...] [facility] ([facility]) Blood 08/17/2021 2:40 PM FARM INSTRUCTOR 08/17/2021 2:40 PM FARM INSTRUCTOR Chintan Figueroa MD LAB BLOOD ORDERABLES Final Re sult [facility] ([facility]) 1 [facility] [place] [address] documented in this encounter Visit Diagnoses Diagnosis Polycythemia Polycythemia, secondary documented in this encounter Orders Appointment Requests Count Last Ordered Date Fi rst Ordered Date ONCBCN LAB APPOINTMENT 1 08/17/2021 documented in this encounter Care Teams Licensed Practical Vocational Nurse Relationship Specialty Start Date End Date Wesley Em MD PCP - General 09/30/16 12/01/21 Trey Pinedo MD [address] [place] [address] [place] [address] Consulting Physician Neurology 05/09/19 documented as of this encounter
--- OUTSIDE RECORDS SUMMARY | 2024-06-18 19:13 | XMS_ITS | Encounter Summary ---
Author Organization [facility] Healthcare Address [address] [place] [address] Care Team Providers Care Skidder Driver Name Role Phone Wesley Em MD Primary Care Provider [phone] Trey Pinedo MD Unavailable [phone] Reason for Visit * Reason Comments OP Infusion Here for phlebotomy. 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
--- OUTSIDE RECORDS SUMMARY | 2024-06-18 19:13 | XMS_ITS | Encounter Summary ---
Author Organization [facility] Healthcare Address [address] [place] [address] Care Team Providers Care Scientist Propagator Name Role Phone Wesley Em MD Primary Care Provider [phone] Trey Pinedo MD Unavailable [phone] Encounter Details Date Type Department Care Team (Late st Contact Info) Description 05/20/2021 3:00 PM PATIENT INTAKE 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 Lab [facility] Physicians 4 [facility] [address] [place] [address] Polycythemia Social History Tobacco Use Types Packs/Day [...] than three times a week 12/31/2020 Attends Taoist Services Not on file 12/31 Active Member [...] on file Legal Sex Male 6:00 PM PATIENT INTAKE 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 Gender Identity Not on file Sexual Orientation Straight 01/23/2021 10 :16 PM CDT documented as of this encounter Last Filed Vital Signs Vital Sign Reading Time Taken Comments Blood Pressure 166/86 05/20/2021 1:54 PM PATIENT INTAKE 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 Pulse 72 05/20/2021 1:54 PM PATIENT INTAKE 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 Temperature 36.6 ??C (97.8 ??F) 05/20/2021 1:54 PM CS T Respiratory Rate 20 05/20/2021 1:54 PM PATIENT INTAKE 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 Oxygen Saturation 93% 05/20/2021 1:54 PM PATIENT INTAKE 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 Inhaled Oxygen Concentration - - Weight 86.2 kg (190 lb) 05/20/2021 1:54 PM PATIENT INTAKE 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 Height - - Body Mass Index 27.26 04/20/2021 3:09 PM CDT documented in this encounter Plan of Treatment Not on file documented as of this encounter Procedures Procedure Name Priority Date/Time Associated Diagnosis Comments DIFFERENTIAL AUTO Routine 05/20/2021 1:5 5 PM PATIENT INTAKE 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 Polycythemia CBC WITH AUTO DIFFERENTIAL Routine 05/20/2021 1:55 PM PATIENT INTAKE 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 Polycythemia documented in this encounter Results * Differential, auto (05/20/2021 1:55 PM PATIENT INTAKE 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) Neutrophil abs 4.7 1.7 - 6.5 K/cumm [...] revised on 2017. Blood 05/20/2021 1:55 PM PATIENT INTAKE 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 05/20/2021 1:59 PM PATIENT INTAKE 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 Chintan Figueroa MD LAB BLOOD ORDERABLES Final Re sult [facility] ([facility]) 1 [facility] [place] [address] * CBC with auto differential (05/20/2021 1:55 PM PATIENT INTAKE 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) WBC 6.6 3.8 - 9.9 K/cumm [facility] [...] [facility] ([facility]) Blood 05/20/2021 1:55 PM PATIENT INTAKE 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 05/20/2021 1:59 PM PATIENT INTAKE 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 Chintan Figueroa MD LAB BLOOD ORDERABLES Final Re sult [facility] ([facility]) 1 [facility] [place] [address] documented in this encounter Visit Diagnoses Diagnosis Polycythemia Polycythemia, secondary documented in this encounter Orders Appointment Requests Count Last Ordered Date Fi rst Ordered Date ONCBCN LAB APPOINTMENT 1 05/20/2021 documented in this encounter Care Teams Scientist Propagator Relationship Specialty Start Date End Date Wesley Em MD PCP - General 09/30/16 12/01/21 Trey Pinedo MD [address] [place] [address] [address] [place] [address] [address] Consulting Physician Neurology 05/09/19 documented as of this encounter
--- OUTSIDE RECORDS SUMMARY | 2024-06-18 19:13 | XMS_ITS | Encounter Summary ---
Author Organization [facility] Medical Group Address [address] [facility] [address] [place] [address] Care Team Providers Care Print Cutter Name Role Phone Wesley Em MD Primary Care Provider [phone] Trey Pinedo MD Unavailable [phone] Encounter Details Date Type Department Care Team (Late st Contact Info) Description 04/23/2021 Telephone [facility] [address] 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 documented in this encounter Plan of Treatment Not on file documented as of this encounter Visit Diagnoses Not on filedocumented in this encounter Care Teams Print Cutter Relationship Specialty Start Date End Date Wesley Em MD PCP - General 09/30/16 12/01/21 Trey Pinedo MD [address] [place] [address] [place] [address] Consulting Physician Neurology 05/09/19 documented as of this encounter
--- OUTSIDE RECORDS SUMMARY | 2024-06-18 19:13 | XMS_ITS | Encounter Summary ---
Author Organization [facility] Healthcare Address [address] [place] [address] Care Team Providers Care Land Lease Information Clerk Name Role Phone Wesley Em MD Primary Care Provider [phone] Trey Pinedo MD Unavailable [phone] Encounter Details Date Type Department Care Team (Late st Contact Info) Description 07/20/2021 3:00 PM 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 DRIVER Lab [facility] Physicians 4 [facility] [address] [place] [address] Polycythemia Social History Tobacco Use Types Packs/Day [...] than three times a week 12/31/2020 Attends Church Services Not on file 12/31 Active Member [...] on file 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 DRIVER Gender Identity Not on file Sexual Orientation Straight 01/23/2021 10 :16 PM CDT documented as of this encounter Last Filed Vital Signs Vital Sign Reading Time Taken Comments Blood Pressure 183/79 07/20/2021 3:03 PM 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 DRIVER Pulse 73 07/20/2021 3:03 PM 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 DRIVER Temperature 35.7 ??C (96.3 ??F) 07/20/2021 3:03 PM CS T Respiratory Rate 20 07/20/2021 3:03 PM 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 DRIVER Oxygen Saturation 96% 07/20/2021 3:03 PM 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 DRIVER Inhaled Oxygen Concentration - - Weight 84 kg (185 lb 3.2 oz) 07/20/2021 3:03 PM 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 DRIVER Height 177.8 cm (5' 10 ) 07/20/2021 3:03 PM 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 DRIVER Body Mass Index 26.57 07/20/2021 3:03 PM 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 DRIVER documented in this encounter Plan of Treatment Not on file documented as of this encounter Procedures Procedure Name Priority Date/Time Associated Diagnosis Comments DIFFERENTIAL AUTO Routine 07/20/2021 2:5 5 PM 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 DRIVER Polycythemia CBC WITH AUTO DIFFERENTIAL Routine 07/20/2021 2:55 PM 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 DRIVER Polycythemia documented in this encounter Results * Differential, auto (07/20/2021 2:55 PM 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 DRIVER) Neutrophil abs 3.2 1.7 - 6.5 K/cumm [...] revised on 2017. Blood 07/20/2021 2:55 PM 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 DRIVER 07/20/2021 3:00 PM 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 DRIVER Chintan Figueroa MD LAB BLOOD ORDERABLES Final Re sult [facility] ([facility]) 1 [facility] [place] [address] * CBC with auto differential (07/20/2021 2:55 PM 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 DRIVER) WBC 5.0 3.8 - 9.9 K/cumm [facility] [...] [facility] ([facility]) Blood 07/20/2021 2:55 PM 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 DRIVER 07/20/2021 3:00 PM 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 DRIVER Chintan Figueroa MD LAB BLOOD ORDERABLES Final Re sult [facility] ([facility]) 1 [facility] [place] [address] documented in this encounter Visit Diagnoses Diagnosis Polycythemia Polycythemia, secondary documented in this encounter Orders Appointment Requests Count Last Ordered Date Fi rst Ordered Date ONCBCN LAB APPOINTMENT 1 07/20/2021 documented in this encounter Care Teams Land Lease Information Clerk Relationship Specialty Start Date End Date Wesley Em MD PCP - General 09/30/16 12/01/21 Trey Pinedo MD [address] [place] [address] [address] [place] [address] Consulting Physician Neurology 05/09/19 documented as of this encounter
--- OUTSIDE RECORDS SUMMARY | 2024-06-18 19:13 | XMS_ITS | Encounter Summary ---
Author Organization [facility] Address [address] [place] [address] Care Team Providers Care White Sugar Boiler Name Role Phone Wesley Em MD Primary Care Provider [phone] Trey Pinedo MD Unavailable [phone] Encounter Details Date Type Department Care Team (Late st Contact Info) Description 06/03/2021 Orders Only [facility] [address] [facility] [address] [place] [address] Wesley Em MD 2 [facility] [address] [place], [place] [id number] Type 2 diabetes mellitus with hyperlipidemia (CMS/HCC) [...] than three times a week 12/31/2020 Attends Holiness Services Not on file 12/31 Active Member [...] on file 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 Gender Identity Not on file Sexual Orientation Straight 01/23/2021 10 :16 PM CDT documented as of this encounter Plan of Treatment Not on file documented as of this encounter Results * Magnesium (10/06/2021 12:28 PM CDT) Magnesium 2.0 1.4 - 2.5 mg/dL [facility] ([place]) Blood 10/06/2021 12:2 8 PM CDT 10/06/2021 12:40 PM CDT us Wesley Em MD LAB BLOOD ORDERABLES Final Res ult [facility] ([place]) [address] [facility] [place] [address] * (ABNORMAL) Hepatic function panel (10/06/2021 12:28 PM CDT) Bilirubin, total 0.4 0.1 - 1.2 mg/dL [facility] ([place]) Bilirubin, direct <0.2 0.1 - 0.3 mg/dL [facility] ([place]) Protein, pl 6.3(L) 6.5 - 8.5 g/dL [facility] ([place]) Albumin 3.8 3.5 - 5.0 g/dL [facility] ([place]) Alk phos 98 40 - 130 Units/L [facility] ([place]) ALT 10 7 - 55 Units/L [facility] ([place]) AST 11 10 - 50 Units/L [facility] ([place]) Blood 10/06/2021 12:2 8 PM CDT 10/06/2021 12:40 PM CDT Wesley Em MD LAB BLOOD ORDERABLES Final Res ult Performing Organization Address [facility] de Phone Number [facility] ([place]) [address] [facility] [place] [address] * (ABNORMAL) Hemoglobin A1c (10/06/2021 12:28 PM CDT) Pathologist [facility] Hgb A1C 5.7(H) 4.0 - 5.6 % [facility] ([place]) Estimated Average Glucose 117 mg/dL [facility] ([place]) Comment: The ADA recommends reporting an estimated Average Glucose (eAG) with all Hemoglobin A1c results using the equation derived from a study of 507 normal and diabetic adults. ??Minority populations were underrepresented and children were not included. ?? (Diabetes Care 31:4233-6175, 2008). ??The eAG is not equivalent to a fasting glucose. Blood 10/06/2021 12:2 8 PM CDT 10/06/2021 12:40 PM CDT Wesley Em MD LAB BLOOD ORDERABLES Final Res ult Performing Organization Address [facility]/ZIP Co de Phone Number [facility] ([place]) [address] [place] [address] * Basic metabolic panel (10/06/2021 12:28 PM CDT) Sodium 138 135 - 145 mmol/L [facility] ([place]) Potassium, pl 3.9 3.3 - 4.9 mmol/L [facility] ([place]) Chloride 105 97 - 110 mmol/L [facility] ([place]) CO2 25 22 - 32 mmol/L [facility] ([place]) Anion gap 8 2 - 15 mmol/L [facility] ([place]) BUN 21 8 - 25 mg/dL [facility] ([place]) Creatinine 1.10 0.80 - 1.30 mg/dL [facility] ([place]) Glucose 116 70 - 199 mg/dL [facility] ([place]) Comment: Interpretive [...] 2017. Calcium 8.6 8.5 - 10.3 mg/dL [facility] ([place]) Blood 10/06/2021 12:2 8 PM CDT 10/06/2021 12:40 PM CDT us Wesley Em MD LAB BLOOD ORDERABLES Final Res ult [facility] ([place]) [address] [facility] [place] [address] * PSA screen (10/06/2021 12:28 PM CDT) PSA-Total 5.02 <=6.20 ng/mL [facility] ([place]) Comment: Interpretive Data ?AGE ? SEX ?REFERENCE INTERVAL 0 minutes-150 years ?Female ?None 0 minutes-49 years ? Male ?None ? 50-59 years ? Male ?0-3.90 ? 60-69 years ? Male ?0-5.40 ? 70-79 years ? Male ?0-6.20 ? 80-150 years ?Male ?0-6.20 Current interpretive data last revised 2018. Testing performed by: [facility], [address] [place] [address]., [id number] Blood 10/06/2021 12:2 8 PM CDT 10/06/2021 2:06 PM CDT us Wesley Em MD LAB BLOOD ORDERABLES Final Res ult [facility] ([place]) [address] [facility] [place] [address] documented in this encounter Visit Diagnoses Diagnosis Type 2 diabetes mellitus with hyperlipidemia (HCC)- Primary Screening PSA (prostate specific antigen) Special screening for malignant neoplasm of prostate documented in this encounter Care Teams White Sugar Boiler Relationship Specialty Start Date End Date Wesley Em MD PCP - General 09/30/16 12/01/21 Trey Pinedo MD [address] [place] [address] [place] [address] Consulting Physician Neurology 05/09/19 documented as of this encounter
--- OUTSIDE RECORDS SUMMARY | 2024-06-18 19:13 | XMS_ITS | Encounter Summary ---
Author Organization [facility] Address [address] [place] [address] Phone Care Team Providers Care Life Scientist Name Role Phone Wesley Em MD Primary Care Provider [phone] Trey Pinedo MD Unavailable [phone] Encounter Details Date Type Department Care Team (Late st Contact Info) Description 04/28/2021 Orders Only [facility] Surgery [address] [facility] 8th [place] [address] [place] [address] Gadiel Genao MD [address] [facility] 8108-11-03 [place], [place] [id number] Bilateral carotid artery disease (CMS/HCC) (HCC) (Primary [...] on file Legal Sex Male 6:00 PM PAD HAND Gender Identity Not on file Sexual Orientation Straight 01/23/2021 10 :16 PM CDT documented as of this encounter Plan of Treatment Not on file documented as of this encounter Visit Diagnoses Diagnosis Bilateral carotid artery disease (HCC)- Primary Unspecified disorders of arteries and arterioles documented in this encounter Care Teams Life Scientist Relationship Specialty Start Date End Date Wesley Em MD PCP - General 09/30/16 12/01/21 Trey Pinedo MD [address] [place] [address] [place] [address] Consulting Physician Neurology 05/09/19 documented as of this encounter
--- OUTSIDE RECORDS SUMMARY | 2024-06-18 19:14 | XMS_ITS | Encounter Summary ---
Author Organization 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
--- OUTSIDE RECORDS SUMMARY | 2024-06-18 19:14 | XMS_ITS | Encounter Summary ---
Author Organization [facility] Healthcare Address [address] [place] [address] Care Team Providers Care Fermentation Operator Name Role Phone Wesley Em MD Primary Care Provider [phone] Trey Pinedo MD Unavailable [phone] Encounter Details Date Type Department Care Team (Late st Contact Info) Description 03/02/2021 2:55 PM CDT Lab [address] [address] Social History Tobacco Use Types Packs/Day Years [...] than three times a week 12/31/2020 Attends [employer] Services Not on file 12/31 Active Member [...] on file Legal Sex Male 6:00 PM [employer]ER [employer] Gender Identity Not on file Sexual Orientation Straight 01/23/2021 10 :16 PM CDT documented as of this encounter Plan of Treatment Not on file documented as of this encounter Visit Diagnoses Not on filedocumented in this encounter Care Teams Fermentation Operator Relationship Specialty Start Date End Date Wesley Em MD PCP - General 09/30/16 12/01/21 Trey Pinedo MD [address] [place] [address] [place] [address] Consulting Physician Neurology 05/09/19 documented as of this encounter
--- OUTSIDE RECORDS SUMMARY | 2024-06-18 19:14 | XMS_ITS | Encounter Summary ---
Author Organization [facility] Healthcare Address [address] [place] [address] Care Team Providers Care Office 365 Consultant Name Role Phone Wesley Em MD Primary Care Provider [phone] Trey Pinedo MD Unavailable Reason for Visit * MRI/CAT/PET Scan (Routine) - Closed Specialty Diagnoses / Procedures Referred By Contac t Referred To Contact Radiology Diagnoses Peripheral arterial disease (HCC) Procedures CT Hips Bilateral WO Contrast CTA Abdominal Aorta And Bilateral Iliofemoral Runoff Wesley Em MD [address] [place] [address] DR SALINAS [address] [place] [address] Phone: tel: fax: [address] [address] Referral ID Status Reason Start Date Expiration Date Visits Re quested Visits Authorized [id number] Closed 02/10/2021 03/12/2022 1 1 Encounter Details Date Type Department Care Team (Latest Contact Info) Description 03/02/2021 2:47 PM CDT - 03/02/2021 11:59 PM CDT Hospital Encounter [facility] [address] [place] [address] Wesley Em MD [address] [place] [address] DR SALINAS [address] [place] [address] Peripheral arterial disease (CMS/HCC) (HCC) Discharge Disposition: [...] on file 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 AT: AT Report ID: [id number] Reading Location: [id number] Wesley Em MD [facility] [place] PROCEDURES Final Result * (ABNORMAL) Creatinine, whole blood (03/02/2021 3:01 PM CDT) Creatinine, bld 1.40(H) 0.60 - 1.30 mg/dL [facility] ([place]) Blood 03/02/2021 3:01 PM CDT 03/02/2021 3:03 PM CDT Wesley Em MD LAB BLOOD ORDERABLES Final Res ult [facility] ([place]) 1 [facility] Department [place] [address] documented in this encounter Visit Diagnoses Diagnosis Peripheral arterial disease (HCC) Unspecified peripheral vascular disease documented in this encounter Orders Medications Ordered That Reg ht Not Have Been Administered Count Last Ordered Date First Ordered Date ioversoL (OPTIRAY 350) syrin ge syringe 125 mL 1 03/02/2021 documented in this encounter Care Teams Office 365 Consultant Relationship Specialty Start Date End Date Wesley Em MD PCP - General 09/30/16 12/01/21 Trye Pinedo MD [address] [place] [address] [address] [place] [address] Consulting Physician Neurology 05/09/19 documented as of this encounter
--- OUTSIDE RECORDS SUMMARY | 2024-06-18 19:14 | XMS_ITS | Encounter Summary ---
Author Organization [facility] Address [address] [facility] [address] [place] [address] Care Team Providers Care Punchboard Stuffer Name Role Phone Wesley Em MD Primary Care Provider [phone] Trey Pinedo MD Unavailable [phone] Encounter Details Date Type Department Care Team (Late st Contact Info) Description 02/15/2021 Orders Only [facility] Testing Site - [facility]. 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 Class: Internal Referral Ordering User: Jyoti Nam NP Auth Provider: JYOTI NAM Provider: Jyoti Nam NP Diagnosis: Encounter for preprocedural laboratory [...] No ?? Please select the performing region: [facility] documented in this encounter Plan of Treatment Not on file documented as of this encounter Visit Diagnoses Diagnosis Pre-operative laboratory examination- Primary Pre-procedural laboratory examination documented in this encounter Care Teams Punchboard Stuffer Relationship Specialty Start Date End Date Wesley Em MD PCP - General 09/30/16 12/01/21 Trey Pinedo MD [address] [facility] [place] [address] Consulting Physician Neurology 05/09/19 documented as of this encounter
--- OUTSIDE RECORDS SUMMARY | 2024-06-18 19:14 | XMS_ITS | Encounter Summary ---
Author Organization [facility] Address [address] [facility] [address] [place] [address] Care Team Providers Care Daytime Babysitter Name Role Phone Wesley Em MD Primary Care Provider [phone] Trey Pinedo MD Unavailable [phone] Encounter Details Date Type Department Care Team (Late st Contact Info) Description 03/04/2021 Orders Only [facility] [address] [facility] [address] [place] [address] Wesley Em MD [address] [place] [address] [address] [place] [address] History of colon polyps (Primary Dx); PAD [...] on file 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 INSPECTOR Gender Identity Not on file Sexual [...] MD LAB BLOOD ORDERABLES Final Res ult [facility] ([place] 1 [facility] Department [place] [address] * (ABNORMAL) Hemoglobin A1c (03/04/2021 4:00 PM CDT) Pathologist [facility] Hgb A1C 6.0(H) 4.0 - 5.6 % [facility] ([place]) Estimated Average Glucose 126 mg/dL [facility] ([place]) Comment: The ADA recommends reporting an estimated Average Glucose (eAG) with all Hemoglobin A1c results using the equation derived from a study of 507 normal and diabetic adults. ??Minority populations were underrepresented and children were not included. ?? (Diabetes Care 31:9913-7895, 2008). ??The eAG is not equivalent to a fasting glucose. Blood 03/04/2021 4:00 PM CDT 03/04/2021 5:06 PM CDT Wesley Em MD LAB BLOOD ORDERABLES Final Res ult [facility] ([place]) 1 [facility] Department [place] [address] * (ABNORMAL) Lipid panel (03/04/2021 4:00 PM CDT) [facility] Cholesterol 131 30 - 199 mg/dL [facility] ([place]) Comment: Interpretive Data Ages < or = [...] 2018. Non-HDL Cholesterol 94 mg/dL [facility] ([place]) Comment: Interpretive Data Ages < or = [...] 2018. Chol/HDL ratio 4 [facility] ([place]) Blood 03/04/2021 4:00 PM CDT 03/04/2021 5:06 PM CDT us Wesley Em MD LAB BLOOD ORDERABLES Final Res ult [facility] ([place]) 1 [facility] Department of Laboratories [place], [place] [address] * PSA diagnostic (03/04/2021 4:00 PM CDT) PSA-Total 1.89 <=6.20 ng/mL [facility] ([place]) Comment: Interpretive Data ?AGE ? SEX ?REFERENCE INTERVAL 0 minutes-150 years ?Female ?None 0 minutes-49 years ? Male ?None ? 50-59 years ? Male ?0-3.90 ? 60-69 years ? Male ?0-5.40 ? 70-79 years ? Male ?0-6.20 ? 80-150 years ?Male ?0-6.20 Current interpretive data last revised 2018. Testing performed by: [facility], [address] [place] [address]., [id number] Blood 03/04/2021 4:00 PM CDT 03/05/2021 9:03 AM CDT us Wesley Em MD LAB BLOOD ORDERABLES Final Res ult [facility] ([place]) 1 [facility] Department [place] [address] documented in this encounter Visit Diagnoses Diagnosis History of colon polyps- Primary PAD (peripheral artery disease) (HCC) Unspecified peripheral vascular disease Essential hypertension Unspecified essential hypertension Mixed hyperlipidemia Type 2 diabetes mellitus with hyperlipidemia (HCC) Benign prostatic hyperplasia, unspecified whether lower urinary tract symptoms present Mayo's esophagus with dysplasia documented in this encounter Care Teams Daytime Babysitter Relationship Specialty Start Date End Date Wesley Em MD PCP - General 09/30/16 12/01/21 Trey Pinedo MD [address] [place] [address] [place] [address] Consulting Physician Neurology 05/09/19 documented as of this encounter
--- OUTSIDE RECORDS SUMMARY | 2024-06-18 19:14 | XMS_ITS | Encounter Summary ---
Author Organization [facility] Medical Group Address [address] [place] [address] Care Team Providers Care Joiners Supervisor Name Role Phone Wesley Em MD Primary Care Provider [phone] Trey Pinedo MD Unavailable [phone] Reason for Visit * Reason Comments Follow-up Encounter Details Date Type Department Care Team (Late st Contact Info) Description 03/02/2021 11:30 AM CDT Office Visit [facility] Medical [facility] [address] [address] Frances Huston, OPERATIONS ARCHITECT [address] [address] Obstructive sleep apnea (Primary Dx) [...] on file 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
--- OUTSIDE RECORDS SUMMARY | 2024-06-18 19:14 | XMS_ITS | Encounter Summary ---
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 Gender Identity Not on file Sexual Orientation Straight 01/23/2021 10 :16 PM CDT documented as of this encounter Miscellaneous Notes * Telephone Encounter - Nadja Valderrama RT - 03/01/2021 11:38 AM CDT No answer @ 11:38 documented in this encounter Plan of Treatment Not on file documented as of this encounter Visit Diagnoses Not on filedocumented in this encounter Care Teams Mini Shifter Relationship Specialty Start Date End Date Wesley Em MD PCP - General 09/30/16 12/01/21 Trey Pinedo MD [address] [place] [address] [place] [address] Consulting Physician Neurology 05/09/19 documented as of this encounter
--- OUTSIDE RECORDS SUMMARY | 2024-06-18 19:14 | XMS_ITS | Encounter Summary ---
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/ZIP Co de Phone Number [facility] ([place]) 1 [facility] [place] [address] documented in this encounter Visit Diagnoses Diagnosis Polycythemia Polycythemia, secondary documented in this encounter Orders Appointment Requests Count Last Ordered Date Fi rst Ordered Date ONCBCN LAB APPOINTMENT 1 02/23/2021 documented in this encounter Care Teams Organ Grinder Relationship Specialty Start Date End Date Wesley Em MD PCP - General 09/30/16 12/01/21 Trey Pinedo MD [address] [facility] [place] [address] Consulting Physician Neurology 05/09/19 documented as of this encounter
--- OUTSIDE RECORDS SUMMARY | 2024-06-18 19:14 | XMS_ITS | Encounter Summary ---
Author Organization [facility] Healthcare Address [address] [place] [address] Care Team Providers Care Biomass Boiler Operator Name Role Phone Wesley Em MD Primary Care Provider [phone] Trey Pinedo MD Unavailable [phone] Reason for Visit * Diagnostic Imaging (Routine) - Closed Specialty Diagnoses / Procedures Referred By Contdayami t Referred To Contact Diagnoses PAD (peripheral artery disease) (HCC) Procedures US Arterial Doppler Lower Extremity Bilateral US Arterial Doppler Upper Extremity Bilateral Wesley Em MD Phone: tel: fax: [address] [address] Referral ID Status Reason Start Date Expiration Date Visits Re quested Visits Authorized [id number] Closed 12/25/2020 01/24/2022 1 1 Encounter Details Date Type Department Care Team (Latest Contact Info) Description 02/05/2021 1:58 PM CDT - 02/05/2021 11:59 PM CDT Hospital Encounter [facility] [address] [place] [address] Wesley Em MD [address] [place] [address] PAD (peripheral artery disease) (CMS/HCC) (HCC) Discharge [...] on file 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 RB: SEBASTIÁN Report ID: [id number] Reading Location: [id number] Wesley Em MD IMG US PROCEDURES Final Result documented in this encounter Visit Diagnoses Diagnosis PAD (peripheral artery disease) (HCC) Unspecified peripheral vascular disease documented in this encounter Care Teams Biomass Boiler Operator Relationship Specialty Start Date End Date Wesley Em MD PCP - General 09/30/16 12/01/21 Trey Pinedo MD [address] [place] [address] [address] [place] [address] Consulting Physician Neurology 05/09/19 documented as of this encounter
--- OUTSIDE RECORDS SUMMARY | 2024-06-18 19:14 | XMS_ITS | Encounter Summary ---
Author Organization [facility] Medical Group Address [address] [facility] [address] [place] [address] Care Team Providers Care Electric Repair Supervisor Name Role Phone Wesley Em MD Primary Care Provider [phone] Trey Pinedo MD Unavailable [phone] Encounter Details Date Type Department Care Team (Late st Contact Info) Description 02/22/[address] 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
--- OUTSIDE RECORDS SUMMARY | 2024-06-18 19:14 | XMS_ITS | Encounter Summary ---
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 [address] [place] [address] Vehicle Sales Professional: Wade Paul M.D. Ph.D.; CLIA# [id number] Blood specimen (specimen) 01/28/2021 11:45 AM CDT 01/28/2021 12:18 PM CDT us Chintan Figueroa MD LAB BLOOD ORDERABLES Final Re sult [facility] ([place]) 1 [facility] [place] [address] documented in this encounter Visit Diagnoses Diagnosis Polycythemia Polycythemia, secondary documented in this encounter Care Teams Adoption Manager Relationship Specialty Start Date End Date Wesley Em MD PCP - General 09/30/16 12/01/21 Trey Pinedo MD [address] [place] [address] [address] [place] [address] Consulting Physician Neurology 05/09/19 documented as of this encounter
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
--- OUTSIDE RECORDS SUMMARY | 2024-06-18 19:14 | XMS_ITS | Encounter Summary ---
Author Organization 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
--- OUTSIDE RECORDS SUMMARY | 2024-06-18 19:14 | XMS_ITS | Encounter Summary ---
Author Organization [facility] Healthcare Address [address] [place] [address] Care Team Providers Care Casing Cleaner Name Role Phone Wesley Em MD Primary Care Provider [phone] Trey Pinedo MD Unavailable [phone] Reason for Visit * Reason Comments Phlebotomy Encounter Details Date Type Department Care Team (Late st Contact Info) Description 02/23/2021 3:00 PM CDT Infusion [facility] 4 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
--- OUTSIDE RECORDS SUMMARY | 2024-06-18 19:14 | XMS_ITS | Encounter Summary ---
Author Organization [facility] Healthcare Address [address] [place] [address] Care Team Providers Care Environmental Services Supervisor Name Role Phone Wesley Em MD Primary Care Provider [phone] Trey Pinedo MD Unavailable Reason for Visit * Reason Onset Date Comments Sleep Study results 02/26/2021 Encounter Details Date Type Department Care Team (Late st Contact Info) Description 02/26/2021 Telephone [facility] Sleep Lab [address] [place] [address] Leandro Matamoros MD [address] [place] [address] [address] Sleep Study results Social History Tobacco Use [...] on file 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
--- OUTSIDE RECORDS SUMMARY | 2024-06-18 19:14 | XMS_ITS | Encounter Summary ---
Author Organization [facility] Address [address] [place] [address] Phone Care Team Providers Care Jira Administrator Name Role Phone Wesley Em MD Primary Care Provider [phone] Trey Pinedo MD Unavailable [phone] Dorinda Chavez [facility] Unavailable [phone] Reason for Visit * Consultation (Routine) - Closed Specialty Diagnoses / Procedures Referred By Jomar villela Referred To Contact Oncology Diagnoses Polycythemia Wesley Em MD Phone: tel: fax: Praful Davila MD [address] [place] [address] Phone: tel: fax: Referral ID Status Reason Start Date Expiration Date V isits Requested Visits Authorized [id number] Closed Specialty Services Required 01/01/2021 01/31/2022 1 1 Encounter Details Date Type Department Care Team (Late st Contact Info) Description 01/26/2021 3:30 PM CDT Office Visit [facility] Oncology [address] [place] [address] Medical Office [facility] [address] [place] [phone] Chintan Figueroa MD [address] [place] [address] [address] [place] [address] Polycythemia (Primary Dx) Social History Tobacco Use [...] file Legal Sex Male 6:00 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 male Chief Complaint: The [...] tells me that he did see a manager club here in [place], Dr. Hoskins, several years ago who recommended [...] taking testosterone in any form nor any kced-ppf-hjwhpdg androgen type erb or supplement. His significant [...] than three times a week ??? Attends Yarsani Services: Not on file ??? Active Member [...] stones 2017 ??? Coronary artery disease involving [place] coronary artery of [place] heart without angina pectoris 2017 ??? Chronic [...] with auto differential (04/20/2021 2:35 PM CDT) [facility] WBC 6.6 3.8 - 9.9 K/cumm R[facility] [...] sult [facility] ([place]) 1 [facility] Department [place] [address] * (ABNORMAL) CBC with auto differential (03/30/2021 [...] Final Re sult [facility] ([place]) 1 [facility] [place] [address] * (ABNORMAL) CBC with auto differential (02/23/2021 [...] ORDERABLES Final Re sult Performing Organization Address [facility] Co de Phone Number [facility] ([place]) 1 [facility] [place] [address] * Erythropoietin (01/28/2021 11:45 AM CDT) Erythropoietin 12.6 2.6 - 18.5 mIUnits/mL [facility] ([place]) Comment: Test Performed by: [facility] [address] [place] [address] Wood Gouger: Wade Paul M.D. Ph.D.; CLIA# [id number] Blood specimen (specimen) 01/28/2021 11:45 AM CDT 01/28/2021 12:18 PM CDT Chintan Figueroa MD LAB BLOOD ORDERABLES Final Re sult Performing Organization Address [facility] de Phone Number [facility] ([place]) 1 [facility] [place] [address] * (ABNORMAL) CBC with auto differential (01/26/2021 [...] (BETTY) MCH 34.2(H) 27.1 - 33.3 pg [facility] ([place]) MCHC 37.1(H) 32.3 - 35.7 g/dL [facility] ([place]) RDW CV 13.1 11.1 - 14.9 % [facility] ([place]) RDW SD 43.1 35.7 - 48.1 fL [facility] ([place]) NRBC abs Not Measured 0.00 - 0.01 K/cumm [facility] ([place]) Blood specimen (specimen) 01/26/2021 3:20 PM CDT 01/26/2021 3:21 PM CDT Chintan Figueroa MD LAB BLOOD ORDERABLES Final Re sult [facility] ([place]) 1 [facility] Department [place] [address] * Comprehensive metabolic panel (01/26/2021 3:20 PM CDT) Sodium 139 135 - 145 mmol/L [facility] ([place]) Potassium, pl 4.1 3.3 - 4.9 mmol/L [facility] ([place]) Chloride 103 97 - 110 mmol/L [facility] ([place]) CO2 28 22 - 32 mmol/L [facility] ([place]) Anion gap 8 2 - 15 mmol/L [facility] ([place]) BUN 20 8 - 25 mg/dL [facility] ([place]ET[place]) Creatinine 1.13 0.80 - 1.30 mg/dL [facility] ([place]) Glucose 113 70 - 199 mg/dL [facility] ([place]) Comment: Interpretive Data Fasting glucose [...] sult [facility] ([place]) 1 [facility] Department [place] [address] documented in this encounter Visit Diagnoses Diagnosis [...] 02/23/2021 documented in this encounter Care Teams Jira Administrator Relationship Specialty Start Date End Date Wesley Em MD PCP - General 09/30/16 12/01/21 Trey Pinedo MD [address] [place] [address] [address] [place] [address] Consulting Physician Neurology 05/09/19 Dorinda Chavez, INDUSTRIAL RELATIONS 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 [address] [facility] [address] [place] [id number] Television News Anchor 12/30/20 01/26/21 documented as of this encounter
--- OUTSIDE RECORDS SUMMARY | 2024-06-18 19:14 | XMS_ITS | Encounter Summary ---
Author Organization [facility] Medical Group Address [address] [facility] [address] [place] [address] Care Team Providers Care Car Storer Name Role Phone Wesley Em MD Primary Care Provider [phone] Trey Pinedo MD Unavailable [phone] Encounter Details Date Type Department Care Team (Late st Contact Info) Description 02/15/2021 Orders Only [facility] Medical [facility] Pulmonology & Sleep Clinic [address] [address] Jasmin Nam, FUR FLOOR WORKER [address] [facility] [address] [address] Encounter for preprocedural laboratory examination [...] on file 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
--- OUTSIDE RECORDS SUMMARY | 2024-06-18 19:14 | XMS_ITS | Encounter Summary ---
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 HDL 37(L) >=40 mg/dL [facility]HCA[facility] (BETTY) Comment: Interpretive Data Ages < or [...] Final Res ult [facility] ([place]) 1 [facility] [place] [address] * (ABNORMAL) Hemoglobin A1c (03/04/2021 4:00 PM [...] children were not included. ?? (Diabetes Care 31:1951-7856, 2008). ??The eAG is not equivalent to a fasting glucose. Blood 03/04/2021 4:00 PM CDT 03/04/2021 5:06 PM CDT us Wesley Em MD LAB BLOOD ORDERABLES Final Res ult [facility] ([place]) 1 [facility] [place] [address] * PSA diagnostic (03/04/2021 4:00 PM CDT) [facility] PSA-Total 1.89 <=6.20 ng/mL [facility] CARMICHAEL ([place]) Comment: Interpretive Data ?AGE ? SEX ?REFERENCE INTERVAL 0 minutes-150 years ?Female ?None 0 minutes-49 years ? Male ?None ? 50-59 years ? Male ?0-3.90 ? 60-69 years ? Male ?0-5.40 ? 70-79 years ? Male ?0-6.20 ? 80-150 years ?Male ?0-6.20 Current interpretive data last revised 2018. Testing performed by: [facility], [address] [place] [address]., [address] Blood 03/04/2021 4:00 PM CDT 03/05/2021 9:03 AM CDT us Wesley Em MD LAB BLOOD ORDERABLES Final Res ult [facility] ([place]) 1 [facility] [place] [address] * Comprehensive metabolic panel (03/04/2021 4:00 PM [...] MD LAB BLOOD ORDERABLES Final Res ult [facility] ([place]) 1 [facility] [place] [address] documented in this encounter Visit Diagnoses Diagnosis Essential hypertension Unspecified essential hypertension Mixed hyperlipidemia Type 2 diabetes mellitus with hyperlipidemia (HCC) Benign prostatic hyperplasia, unspecified whether lower urinary tract symptoms present documented in this encounter Care Teams Needle Punch Machine Operator Relationship Specialty Start Date End Date Wesley Em MD PCP - General 09/30/16 12/01/21 Trey Pindeo MD [address] [place] [address] [address] [place] [address] Consulting Physician Neurology 05/09/19 documented as of this encounter
--- OUTSIDE RECORDS SUMMARY | 2024-06-18 19:14 | XMS_ITS | Encounter Summary ---
Author Organization [facility] Healthcare Address [address] [place] [address] Care Team Providers Care Manganese Heater Name Role Phone Wesley Em MD Primary Care Provider [phone] Trey Pinedo MD Unavailable [phone] Dorinda Chavez [facility] Unavailable Encounter Details Date Type Department Care Team (Late st Contact Info) Description 01/26/2021 3:15 PM CDT Lab [facility] Physicians 4 [facility] [address] [place] [address] Chintan Figureoa MD [address] [place] [address] [address] [place] [address] Polycythemia Discharge Disposition: Discharge to home or [...] than three times a week 12/31/2020 Attends Cheondoism Services Not on file 12/31 Active Member [...] BLOOD ORDERABLES Final Re sult [facility] ([place]) 1 [facility] Department of Laboratories [place], [place] [address] * Differential, auto (01/26/2021 3:20 PM CDT) Neutrophil abs 4.4 1.7 - 6.5 K/cumm [facility] ([place]) Imm gran abs Not Measured 0.0 - [...] [facility] Department [place] [address] * (ABNORMAL) CBC with auto differential (01/26/2021 3:20 PM CDT) Pathologist [facility] WBC 7.0 3.8 - 9.9 K/cumm CERNER [...] Final Re sult [facility] (BETTY) [address] [facility] [place] [address] * Comprehensive metabolic panel (01/26/2021 3:20 PM CDT) [facility] Sodium 139 135 - 145 mmol/L C[facility]ER [...] [facility] Department [place] [address] documented in this encounter Visit Diagnoses Diagnosis Polycythemia Polycythemia, secondary documented in this encounter Care Teams Manganese Heater Relationship Specialty Start Date End Date Wesley Em MD PCP - General 09/30/16 12/01/21 Trey Pinedo MD [address] [place] [address] [address] [facility] [place] [address] Consulting Physician Neurology 05/09/19 Dorinda Chavez, [address] [place] [address] [place] 12/30/20 01/26/21 documented as of this encounter
--- OUTSIDE RECORDS SUMMARY | 2024-06-18 19:14 | XMS_ITS | Encounter Summary ---
Author Organization [facility] Healthcare Address [address] [place] [address] Care Team Providers Care Nurse Midwife Name Role Phone Wesley Em MD Primary Care Provider [phone] Trey Pinedo MD Unavailable [phone] Encounter Details Date Type Department Care Team (Late st Contact Info) Description 02/23/2021 2:05 PM CDT Lab [address] [address] Frances Huston NP [address] [facility] [address] [place] [address] Leandro Matamoros MD [address] [facility] [address] [place] [address] Preop testing Discharge Disposition: Discharge to [...] file 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 ??Testing performed by the [facility] Molecular Infectious Disease Laboratory. The 2019-Novel Coronavirus [...] on August 06, 2020. Testing performed by: [facility], [address] [place] [address]., [address] First COVID-19 test? No [facility] ([place]) Comment:Testing performed by : [facility], [address] [place] [address], [address] Employeed in healthcare? Unknown [facility] ([place]) Comment:Testing performed by : [address], [address] status? No CE [facility] ([place]) Comment:Testing performed by : [facility], [address] [place] [address], [address] Group care resident? Unknown [facility] ([place]) Comment:Testing performed by : [facility], [address] [facility], [address] Hospitalized? Unknown [facility] ([place]) Comment:Testing performed by : [address], [address] Is patient in ICU? Unknown [facility] ([place]) Comment:Testing performed by : [facility], [address] [place] [address], [address] Symptomatic as defined by CDC? No [facility] ([place]) Comment:Testing performed by : [facility], [address] [place] [address], [address] Nasopharyngeal 02/23/2021 2: 04 PM CDT 02/23/2021 10:20 PM CDT Narrative [facility] ([place]) - 02/24/2021 7:10 AM CDT What is the reason for testing?->Screening prior to scheduled procedure or surgery (batch) us Frances Huston ANALYTICAL STRATEGIST LAB MICROBIOLOGY - GENER AL ORDERABLES Final Result [facility] ([place]) 1 [facility] Department [place] [address] documented in this encounter Visit Diagnoses Diagnosis Preop testing Unspecified pre-operative examination documented in this encounter Care Teams Nurse Midwife Relationship Specialty Start Date End Date Wesley Em MD PCP - General 09/30/16 12/01/21 Trey Pinedo MD [address] [place] [address] [place] [address] Consulting Physician Neurology 05/09/19 documented as of this encounter
--- OUTSIDE RECORDS SUMMARY | 2024-06-18 19:14 | XMS_ITS | Encounter Summary ---
Author Organization [facility] Medical Group Address [address] [place] [address] Care Team Providers Care Mechanical Car Checker Name Role Phone Wesley Em MD Primary Care Provider Trey Pinedo MD Unavailable [phone] Reason for Visit * Reason Comments Medicare Annual Wellness Visit Iram villela [facility] Encounter Details Date Type Department Care Team (Late st Contact Info) Description 03/04/2021 2:30 PM CDT Office Visit [facility] [address] [facility] [address] [place] [address] Wesley Em MD [address] [place] [address] [address] [place] [address] Medicare annual wellness visit, subsequent (Primary Dx); Overweight with body mass index (BMI) of 29 to 29.9 in adult; Coronary artery disease involving [place] creek coronary artery of [place] heart without angina pectoris; Essential hypertension; Peripheral [...] on file Legal 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 The patient worked at [employer] for 40 years Review of Systems Review [...] blocks without stopping Coronary artery disease involving [place] coronary artery of [place] heart without angina pectoris Patient has had 3 stents put in he is taking aspirin statin he needs lose weight exercise low bit more often will follow-up with Cardiology as directed will get set up for carotid Doppler examinationas well Essential hypertension Control with current regimen will continue to monitor Peripheral arterial disease ([facility]) ([facility]) Refer to cardiology for arteriogram and possible stent placement Polycythemia Much improved with therapeutic phlebotomy as directed by Hematology Oncology Sensorineural hearing loss, bilateral Continue using hearing aids follow-up with hearing doctor as directed Type 2 diabetes mellitus with hyperlipidemia ([facility]) ([facility]) His A1c test 6.0 he is taking [...] 29.9 in adult Coronary artery disease involving [place] coronary artery of [place] heart without angina pectoris Essential hypertension Unspecified essential hypertension Peripheral arterial disease (HCC) Unspecified peripheral vascular disease Polycythemia Polycythemia, secondary Sensorineural hearing loss, bilateral Type 2 diabetes mellitus with hyperlipidemia (HCC) Mixed hyperlipidemia Obstructive sleep apnea Obstructive sleep apnea (adult) (pediatric) Drug-induced erectile dysfunction documented in this encounter Care Teams Mechanical Car Checker Relationship Specialty Start Date End Date Wesley Em MD PCP - General 09/30/16 12/01/21 Trey Pinedo MD [address] [place] [address] [place] [address] Consulting Physician Neurology 05/09/19 documented as of this encounter
--- OUTSIDE RECORDS SUMMARY | 2024-06-18 19:14 | XMS_ITS | Encounter Summary ---
Author Organization [facility] Healthcare Address [address] [place] [address] Care Team Providers Care Placement Specialist Name Role Phone Wesley Em MD Primary Care Provider [phone] Trey Pinedo MD Unavailable [phone] Reason for Visit * Reason Comments OP Infusion Here for phlebotomy. Hematocrit 53.4 on 01/26. 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
--- OUTSIDE RECORDS SUMMARY | 2024-06-18 19:14 | XMS_ITS | Encounter Summary ---
Author Organization [facility] Healthcare Address [address] [place] [address] Care Team Providers Care Glaciologist Name Role Phone Wesley Em MD Primary Care Provider [phone] Trey Pinedo MD Unavailable [phone] Reason for Referral * Sleep Medicine (Routine) - Closed Specialty Diagnoses / Procedures Referred By Jomar villela Referred To Contact Diagnoses Hypersomnia Procedures PSG-Sleep Provider Use Only Leandro Matamoros MD [address] [place] [address] [address] [place] [address] Phone: tel: fax: [address] [phone] Referral ID Status Reason Start Date Expiration Date Visits Re quested Visits Authorized [id number] Closed 01/28/2021 02/27/2022 1 1 Reason for Visit * Sleep Medicine (Routine) - Closed Specialty Diagnoses / Procedures Referred By Jomar villela Referred To Contact Diagnoses Hypersomnia Procedures PSG-Sleep Provider Use Only Leandro Matamoros MD [address] [place] [address] [address] [place] [address] Phone: tel: fax: [address] [phone] Referral ID Status Reason Start Date Expiration Date Visits Re quested Visits Authorized [id number] Closed 01/28/2021 02/27/2022 1 1 Encounter Details Date Type Department Care Team (Latest Contact Info) Description 02/24/2021 7:32 PM CDT - 02/24/2021 11:59 PM CDT Hospital Encounter [facility] [address] [place] [address] Hypersomnia Discharge Disposition: Discharge to home or [...] on file 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 Gender Identity Not on file Sexual [...] ORDERABLES F inal Result Performing Organization Address City/State/[facility] Co de Phone Number [facility] [address] documented in this encounter Visit Diagnoses Diagnosis Hypersomnia Hypersomnia, unspecified documented in this encounter Care Teams Glaciologist Relationship Specialty Start Date End Date Wesley Em MD PCP - General 09/30/16 12/01/21 Trey Pinedo MD [address] [place] [address] [address] [place] [address] Consulting Physician Neurology 05/09/19 documented as of this encounter
--- OUTSIDE RECORDS SUMMARY | 2024-06-18 19:14 | XMS_ITS | Encounter Summary ---
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
--- OUTSIDE RECORDS SUMMARY | 2024-06-18 19:14 | XMS_ITS | Encounter Summary ---
Author Organization [facility] Address [address] [facility] [facility] [address] [place] [address] Care Team Providers Care Senior Technical Specialist Name Role Phone Wesley Em MD Primary Care Provider [phone] Trey Pinedo MD Unavailable [phone] Encounter Details Date Type Department Care Team (Late st Contact Info) Description 02/22/2021 Orders Only [facility] Testing Site - [facility]. 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 Date of Px/chemo/treatment/placement/transfer 02/23/2021 ?? Testing site patient will be sent to: [facility], [place] ?? Date testing requested: 02/24/2021 ?? Testing: COVID-19 RNA ?? Does the patient currently work in a healthcare facility with direct patient contact? Unknown ?? Is the patient a resident of a congregate care or living setting? Unknown ?? Is the patient ? No ?? Please select the performing region: [facility] documented in this encounter Plan of Treatment Not on file documented as of this encounter Results * COVID-19 Coronavirus RNA Nasopharyngeal (02/23/2021 2:04 PM CDT) COVID-19 RNA Not Detected [facility] ([facility]) Comment: Interpretive Data Synonyms for this test include: PCR and NAAT . ??Testing performed by the [facility] Molecular Infectious Disease Laboratory. The Novel Coronavirus [...] on August 06, 2020. Testing performed by: [address] [address] First COVID-19 test? No [facility] ([facility]) Comment:Testing performed by : [address], [address] Employeed in healthcare? Unknown [facility] ([facility]) Comment:Testing performed by : [address], [address] status? No [facility] ([facility]) Comment:Testing performed by : [address], [address] Group care resident? Unknown [facility] ([facility]) Comment:Testing performed by : [facility], [address] [place] [address], [address] Hospitalized? Unknown [facility] ([facility]) Comment:Testing performed by : [address], [address] Is patient in ICU? Unknown [facility] ([facility]) Comment:Testing performed by : [address], [address] Symptomatic as defined by CDC? No [facility] ([facility]) Comment:Testing performed by : [facility], [address] [facility], [place]., [address] Nasopharyngeal 02/23/2021 2: 04 PM CDT 02/23/2021 10:20 PM CDT Narrative [facility] ([facility]) - 02/24/2021 7:10 AM CDT What is the reason for testing?->Screening prior to scheduled procedure or surgery (batch) Frances Huston [facility] MICROBIOLOGY - GENER AL ORDERABLES Final Result [facility] ([facility]) [address] [facility] Department [place] [address] documented in this encounter Visit Diagnoses Diagnosis Preop testing- Primary Unspecified pre-operative examination Preop testing Unspecified pre-operative examination documented in this encounter Care Teams Senior Technical Specialist Relationship Specialty Start Date End Date Wesley Em MD PCP - General 09/30/16 12/01/21 Trey Pinedo MD [address] [place] [address] [place] [address] Consulting Physician Neurology 05/09/19 documented as of this encounter
--- OUTSIDE RECORDS SUMMARY | 2024-06-18 19:15 | XMS_ITS | Encounter Summary ---
Author Organization [facility] Healthcare Address [address] [place] [address] Care Team Providers Care Car Oiler Name Role Phone Wesley Em MD Primary Care Provider [phone] Trey Pinedo MD Unavailable [phone] Reason for Referral * Diagnostic Imaging (Routine) - Closed Specialty Diagnoses / Procedures Referred By Jomar villela Referred To Contact Radiology Diagnoses History of tobacco abuse Encounter for screening for lung cancer Procedures CT Lung Cancer Screening Wesley Em MD Phone: tel: fax: [address] [address] Referral ID Status Reason Start Date Expiration Date Visits Re quested Visits Authorized [id number] Closed 08/27/2020 09/26/2021 1 1 AULICS ENGINEER Reason for Visit * Diagnostic Imaging (Routine) - Closed Specialty Diagnoses / Procedures Referred By Contac t Referred To Contact Radiology Diagnoses History of tobacco abuse Encounter for screening for lung cancer Procedures CT Lung Cancer Screening Wesley Em MD Phone: tel: fax: [address] [phone] Referral ID Status Reason Start Date Expiration Date Visits Re quested Visits Authorized [id number] Closed 08/27/2020 09/26/2021 1 1 Encounter Details Date Type Department Care Team (Latest Contact Info) Description 09/09/2020 12:27 PM HYDRAULICS ENGINEER - 09/09/2020 11:59 PM HYDRAULICS ENGINEER Hospital Encounter [facility] Imaging and Radiology [address] [place] [address] Wesley Em MD [address] [place] [address] [place] [address] History of tobacco abuse; Encounter for screening for lung cancer Discharge Disposition: Discharge to home or self care Social History Tobacco Use Types Packs/Day Years Used Date Smoking Tobacco: Former Cigarettes 0.1 50 1 689 - 2008 Smokeless Tobacco: Never Alcohol Use Standard Drinks/Week Comments No 0 (1 standard drink = 0.6 oz pur e alcohol) PHQ-2 Answer Date Recorded PHQ-2 Total Score (If total score is 3 or more points, staff should administer the PHQ-9) 0 08/27/2020 Sex and Gender Information Value Date Recorded Sex Assigned at Not on file Legal Sex Male 6:00 PM HYDRAULICS ENGINEER Gender Identity Not on file Sexual [...] Introduced myself and explained my role before [facility]. Assessed smoking history. He has been smoke free since 2008. AULICS ENGINEER documented in this encounter Miscellaneous Notes * Result Encounter Note - Wesley Em MD - 09/09/2020 1:35 PM CST Okay to leave a message CT scan looks good repeat 1 year AULICS ENGINEER documented in this encounter Plan of Treatment Not on file documented as of this encounter Procedures Procedure Name Priority Date/Time Associated Diagnosis Comments CT LUNG CANCER SCREENING Schedule Routine, Read Routine (OP Routine) 09/09/2020 1:02 PM HYDRAULICS ENGINEER History of tobacco abuse Encounter for screening for lung cancer documented in this encounter Results * CT Lung Cancer Screening (09/09/2020 1:02 PM HYDRAULICS ENGINEER) Anatomical Region Laterality Modality Chest N/A Computed Tomogra phy 09/09/2020 1:15 PM HYDRAULICS ENGINEER Impressions 09/09/2020 1:19 PM HYDRAULICS ENGINEER LUNG RADS CATEGORY 1 WITH NO SUSPICIOUS PULMONARY NODULES. COPD. ATHEROSCLEROSIS. CONTINUED [address] LOW-DOSE CT SURVEILLANCE Electronically signed by: Shorty Carvalho M.D. Narrative 09/09/2020 1:19 PM HYDRAULICS ENGINEER EXAMINATION: CT LUNG CANCER SCREENING dated 09/09/2020 1:00 PM HISTORY: 74-year-old man lung cancer screening. 25 pack-year history, quit smoking July 2008 TECHNIQUE: Low-dose noncontrast spiral CT of multiplanar reconstructions FINDINGS: Comparison with multiple priors most recently dated 02/14/2019. Surgery Consultant radiograph once again demonstrates tortuous aorta with [...] with multiple priors most recently dated 02/14/2019. Surgery Consultant radiograph once again demonstrates tortuous aorta with [...] cancer documented in this encounter Care Teams Car Oiler Relationship Specialty Start Date End Date Wesley Em MD PCP - General 09/30/16 12/01/21 Trey Pinedo MD [address] [facility] [address] [place] [address] Consulting Physician Neurology 05/09/19 documented as of this encounter
--- OUTSIDE RECORDS SUMMARY | 2024-06-18 19:15 | XMS_ITS | Encounter Summary ---
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
--- OUTSIDE RECORDS SUMMARY | 2024-06-18 19:15 | XMS_ITS | Encounter Summary ---
Author Organization [facility] Medical Group Address [address] [facility] [address] [place] [address] Care Team Providers Care Part Time Name Role Phone Wesley Em MD Primary Care Provider [phone] Trey Pinedo MD Unavailable [phone] Reason for Visit * Reason Comments Hypertension Diabetes Encounter Details Date Type Department Care Team (Late st Contact Info) Description 08/27/2020 9:00 AM EXTENSION COURSE COORDINATOR Office Visit [facility] [address] [facility] [address] [place] [address] Wesley Em MD [address] [place] [address] [address] [place] [address] Type 2 diabetes mellitus with hyperlipidemia (CMS/HCC) [...] on file Legal Sex Male 6:00 PM EXTENSION COURSE COORDINATOR Gender Identity Not on file Sexual Orientation Straight 01/23/2021 10 :16 PM CDT documented as of this encounter Last Filed Vital Signs Vital Sign Reading Time Taken Comments Blood Pressure 148/100 08/27/2020 9:11 AM EXTENSION COURSE COORDINATOR Pulse 60 08/27/2020 9:11 AM EXTENSION COURSE COORDINATOR Temperature - - Respiratory Rate 20 08/27/2020 9:11 AM EXTENSION COURSE COORDINATOR Oxygen Saturation - - Inhaled Oxygen Concentration - - Weight 98 kg (216 lb) 08/27/2020 9:11 AM EXTENSION COURSE COORDINATOR Height 177.8 cm (5' 10 ) 08/27/2020 9:11 AM EXTENSION COURSE COORDINATOR Body Mass Index 30.99 08/27/2020 9:11 AM EXTENSION COURSE COORDINATOR documented in this encounter Ordered Prescriptions Prescription [...] for his Lowe's dose CT scan at [facility] he states he will get done this [...] start monitoring at home call for elevations [id number] Mixed hyperlipidemia Continue statin therapy currently on 80 without muscle pain muscle weakness Encounter for screening for lung cancer Low-dose screening CT scan recommended [facility] he is overdue for this he states [...] in agreement with the plan of care. NSION COURSE COORDINATOR NSION COURSE COORDINATOR documented in this encounter Plan of [...] documented as of this encounter Care Teams Part Time Relationship Specialty Start Date End Date Wesley Em MD PCP - General 09/30/16 12/01/21 Trey Pinedo MD [address] [place] [address] [address] [place] [address] Consulting Physician Neurology 05/09/19 documented as of this encounter
--- OUTSIDE RECORDS SUMMARY | 2024-06-18 19:15 | XMS_ITS | Encounter Summary ---
Author Organization [facility] Address [address] [place] [address] Phone Care Team Providers Care Line Repairer Name Role Phone Wesley Em MD Primary Care Provider [phone] Trey Pinedo MD Unavailable [phone] Dorinda ChavezW Unavailable [phone] Encounter Details Date Type Department Care Team (Late st Contact Info) Description 01/06/2021 Telephone [facility] Oncology [address] [place] [address] Medical [address] [phone] Josefa Santana, CLT Social History Tobacco Use [...] on file 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 Gender Identity Not on file Sexual Orientation Straight 01/23/2021 10 :16 PM CDT documented as of this encounter Miscellaneous Notes * Telephone Encounter - Josefa Santana CLT - 01/06/2021 12:17 PM CDT NO VOICE MAIL documented in this encounter Plan of Treatment Not on file documented as of this encounter Visit Diagnoses Not on filedocumented in this encounter Care Teams Line Repairer Relationship Specialty Start Date End Date Wesley Em MD PCP - General 09/30/16 12/01/21 Trey Pinedo MD [address] [facility] [place] [address] Consulting Physician Neurology 05/09/19 Dorinda Chavez, [address] [place] [address] Architectural Project Manager 12/30/20 01/26/21 documented as of this encounter
--- OUTSIDE RECORDS SUMMARY | 2024-06-18 19:15 | XMS_ITS | Encounter Summary ---
Author Organization [facility] Healthcare Address [address] [place] [address] Care Team Providers Care Greenkeeper Name Role Phone Wesley Em MD Primary Care Provider [phone] Trey Pinedo MD Unavailable [phone] Reason for Visit * Reason Comments Fall Encounter Details Date Type Department Care Team (Late st Contact Info) Description 12/28/2020 2:35 PM CDT - 12/28/2020 8:42 PM CDT Emergency 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 * Chest Wall Contusion (Kyrgyz) * Diverticulitis (AfterCare(R) Instructions(ER/ED)) (Kyrgyz) documented in this encounter Medications at Time [...] tendency for uric acid stone formation. Source: [employer]Last revised 07-13-2017 CBC WITH AUTO DIFFERENTIAL [...] (97.9 ??F) (Temporal) Resp 17 SpO2 96% [facility] ED Course as of Dec 28 2124 [...] ER when room available. Voice recognition software [employer] was used to dictate and transcribe this document. Marine Fisheries Technician variances may occur. Despite proofreading, typographical errors [...] ORDERABLES Final Result [facility] ([place]) 1 [facility] [place] [address] * (ABNORMAL) Urinalysis reflex to [...] tendency for uric acid stone formation. Source: [employer]. Last revised 07-13-2017 us Ford Killian MD LAB MICROBIOLOGY - GENERAL ORDERABLES Final Result [facility] ([place]) 1 [facility] [place] [address] * CT Abdomen Pelvis WO Contrast (12/28/2020 [...] PM T: ??12/28/2020 7:52 PM Report ID: [id number] Reading Location: ??[id number] Procedure Note Saleem Rice MD - 12/28/2020 [...] Saleem Rice M.D. AB: AB Report ID: [id number] Reading Location: [place] [address] Ford Killian MD IMG CT PROCEDURES Final Res ult * Troponin T high-sensitivity 2-hour (12/28/2020 6:26 PM CDT) Trop T hs 18 <=22 ng/L [facility] ([place]) Comment: Interpretive Data For further [...] BLOOD ORDERABLES Final R esult [facility] [place]) 1 [facility] [place] [address] * CT Chest W Contrast (12/28/2020 5:17 [...] PM T: ??12/31/2020 9:45 PM Report ID: [id number] Reading Location: ??[id number] Narrative 12/28/2020 5:45 PM CDT EXAM DESCRIPTION: [...] PM T: ??12/28/2020 5:45 PM Report ID: [id number] Reading Location: ??[id number] Procedure Note Cam Kohler MD - 12/28/2020 [...] Cam Kohler M.D. LL: LL Report ID: [id number] Reading Location: [place] [address] PROCEDURES Edited Res [...] LAB BLOOD ORDERABLES Final R esult [facility] ([place]) 1 [facility] [place] [address] * Differential, auto (12/28/2020 3:17 PM CDT) [...] 2017. Basophil pct 1.6 % [facility] ([place]) Comment: Interpretive Data Percent cell count reference ranges are not reported, since discordance with absolute values may lead to misinterpretation of CBC data. Current Interpretive Data was last revised on 2017. Blood specimen (specimen) 12/28/2020 3:17 PM CDT 12/28/2020 3:21 PM CDT Rudy CHARLES LAB BLOOD ORDERABLES Final R esult [facility] ([place]) 1 [facility] [place] [address] * Antibody screen (12/28/2020 3:17 PM CDT) Katya, indirect, Gel Interpretation Negative ABSC [facility] ([place]) Blood specimen (specimen) 12/28/2020 3:17 PM CDT 12/28/2020 3:21 PM CDT Narrative [facility] ([place]) - 12/28/2020 4:00 PM CDT Has the patient had Daratumumab or Isatuximab in the past 6 months?->Unknown Rudy CHARLES LAB BLOOD BANK TEST ORDERABL ES Final Result [facility] ([place]) 1 [facility] [place] [address] * ABO/Rh (12/28/2020 3:17 PM CDT) ABO/Rh O Positive [facility] ([place]) Blood specimen (specimen) 12/28/2020 3:17 PM CDT 12/28/2020 3:21 PM CDT Narrative [facility] ([place]) - 12/28/2020 3:59 PM CDT Has the patient had Daratumumab or Isatuximab in the past 6 months?->Unknown Rudy CHARLES LAB BLOOD BANK TEST ORDERABL ES Final Result Performing Organization Address [facility] [address] [facility]/ZIP Co de Phone Number [facility] ([place]) 1 [facility] [place] [address] * Troponin T high-sensitivity series (baseline, 2hr, [...] R esult Performing Organization Address [facility] [address]/[facility] Co de Phone Number [facility] ([place]) 1 [facility] [place] [address] * (ABNORMAL) Comprehensive metabolic panel (12/28/2020 3:17 PM CDT) Sodium 140 135 - 145 mmol/L [facility] ([place]) Potassium, pl 3.8 3.3 - 4.9 mmol/L [facility] ([place]) Chloride 103 97 - 110 mmol/L [facility] ([place]) CO2 28 22 - 32 mmol/L [facility] ([place]) Anion gap 10 2 - 15 mmol/L [facility] ([place]) BUN 30(H) 8 - [...] CHARLES LAB BLOOD ORDERABLES Final R esult [facility] ([place]) 1 [facility] [place] [address] * (ABNORMAL) CBC with auto [...] Final R esult [facility] ([place]) 1 [facility] [place] [address] * ECG 12 lead (12/28/2020 2:53 PM CDT) 12/28/2020 2:53 PM CDT Narrative [facility] - 12/28/2020 4:24 PM CDT Vent Rate: 58 bpm RR Interval: 1032 msec MA Interval: 208 msec QRS Duration: 126 msec QT Interval: 414 msec QTC Interval: 410 msec P-R-T Spangler: -63 - -56 - 89 degrees ECTOPIC [...] us Rudy CHARLES ECG ORDERABLES Final Result [facility] documented in this encounter Visit Diagnoses Diagnosis [...] Indications: Pain 1513 (Given - Provid er: Whitley Blackwell RN) ketorolac (TORADOL) 15 mg/mL injection [...] 12/28/2020 documented in this encounter Care Teams Greenkeeper Relationship Specialty Start Date End Date Wesley Em MD PCP - General 09/30/16 12/01/21 Trey Pinedo MD [address] [facility] [address] [place] [address] [address] Consulting Physician Neurology 05/09/19 documented as of this encounter
--- OUTSIDE RECORDS SUMMARY | 2024-06-18 19:15 | XMS_ITS | Encounter Summary ---
Author Organization [facility] Address [address] [address] Care Team Providers Care Cobbler Sole Name Role Phone Wesley Em MD Primary Care Provider [phone] Trey Pinedo MD Unavailable [phone] Dorinda Chavez [facility] Unavailable [phone] Reason for Referral * Consultation (Routine) - Closed Specialty Diagnoses / Procedures Referred By Jomar villela Referred To Contact Oncology Diagnoses Polycythemia Wesley Em MD Phone: tel: fax: Praful Davila MD [address] [place] [address] Phone: tel: fax: Referral ID Status Reason Start Date Expiration Date V isits Requested Visits Authorized [id number] Closed Specialty Services Required 01/01/2021 01/31/2022 1 1 Question Answer Is this referral for Breast Health Multi-Disciplinary Clinic? 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 Gender Identity Not on file Sexual Orientation Straight 01/23/2021 10 :16 PM CDT documented as of this encounter Plan of Treatment Scheduled Referrals Name Type Priority Associated Diagnoses Order Schedule Ambulatory referral to Oncology Outpatient Referral Routine Polycythemia Expected: 01/01/2021 (Approximate), Expires: 01/01/2022 documented as of this encounter Visit Diagnoses Diagnosis Polycythemia- Primary Polycythemia, secondary documented in this encounter Care Teams Cobbler Sole Relationship Specialty Start Date End Date Wesley Em MD PCP - General 09/30/16 12/01/21 Trey Pinedo MD 4 [facility] [address] [place] [address] Consulting Physician Neurology 05/09/19 Dorinda Chavez, MATHEMATICS DEPARTMENT CHAIR [address] [facility] [address] [place] [address] Early Childhood Services Coordinator 12/30/20 01/26/21 documented as of this encounter
--- OUTSIDE RECORDS SUMMARY | 2024-06-18 19:15 | XMS_ITS | Encounter Summary ---
Author Organization [facility] Address [address] [facility] [address] [place] [address] Care Team Providers Care Dough Cutter Name Role Phone Wesley Em MD Primary Care Provider [phone] Trey Pinedo MD Unavailable [phone] Reason for Visit * Reason Comments Forms/questionnaires for taxes Encounter Details Date Type Department Care Team (Late st Contact Info) Description 05/11/2020 8:15 AM SHIRRER Office Visit [place] [facility] 2 [facility] [address] [place] [address] Wesley Em MD [address] [place] [address] [address] [place] [address] Essential hypertension (Primary Dx); Body mass index (BMI) 29.0-29.9, adult; Type 2 diabetes mellitus with hyperlipidemia ([facility]) Social History Tobacco Use Types Packs/Day Years [...] on file Legal 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 Male 6:00 PM 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 Gender Identity Not on file Sexual Orientation Straight 01/23/2021 10 :16 PM CDT documented as of this encounter Last Filed Vital Signs Vital Sign Reading Time Taken Comments Blood Pressure 160/100 05/11/2020 8:13 AM SHIRRER Pulse 80 05/11/2020 8:13 AM SHIRRER Temperature - - Respiratory Rate 20 05/11/2020 8:13 AM SHIRRER Oxygen Saturation - - Inhaled Oxygen Concentration - - Weight 94.8 kg (209 lb) 05/11/2020 8:13 AM SHIRRER Height 177.8 cm (5' 10 ) 05/11/2020 8:13 AM SHIRRER Body Mass Index 29.99 05/11/2020 8:13 AM SHIRRER documented in this encounter Progress Notes * [...] in agreement with the plan of care. RER documented in this encounter Plan of Treatment Not on file documented as of this encounter Visit Diagnoses Diagnosis Essential hypertension- Primary Unspecified essential hypertension Body mass index (BMI) 29.0-29.9, adult Type 2 diabetes mellitus with hyperlipidemia (HCC) documented in this encounter Care Teams Dough Cutter Relationship Specialty Start Date End Date Wesley Em MD PCP - General 09/30/16 12/01/21 Trey Pinedo MD [address] [facility] [address] [facility] [facility] [place] [address] Consulting Physician Neurology 05/09/19 documented as of this encounter
--- OUTSIDE RECORDS SUMMARY | 2024-06-18 19:15 | XMS_ITS | Encounter Summary ---
Author Organization [facility] Address [address] [facility] [address] [place] [address] Care Team Providers Care Records Management Technician Name Role Phone Wesley Em MD Primary Care Provider [phone] Trey Pinedo MD Unavailable Encounter Details Date Type Department Care Team (Late st Contact Info) Description 09/02/2020 Telephone [facility] 2 [facility] [address] [place] [address] Wesley Em MD [address] [place] [address] [address] [place] [address] Social History Tobacco Use Types Packs/Day Years Used Date Smoking Tobacco: Former Cigarettes 0.1 50 1 349 - 2009 Smokeless Tobacco: Never Alcohol Use Standard Drinks/Week Comments No 0 (1 standard drink = 0.6 oz pur e alcohol) PHQ-2 Answer Date Recorded PHQ-2 Total Score (If total score is 3 or more points, staff should administer the PHQ-9) 0 08/27/2020 Sex and Gender Information Value Date Recorded Sex Assigned at Not on file 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 Gender Identity Not on file Sexual Orientation Straight 01/23/2021 10 :16 PM CDT documented as of this encounter Miscellaneous Notes * Telephone Encounter - Luz Cleary - 09/03/2020 12:06 PM CST Noted thank you AGE DYEING MACHINE OPERATOR * Telephone Encounter - Martha Sutton MA - 09/03/2020 11:59 AM PACKAGE DYEING MACHINE OPERATOR referrals AGE DYEING MACHINE OPERATOR * Telephone Encounter - Wesley Em MD - 09/03/2020 8:25 AM CST Progress note updated from August 27 AGE DYEING MACHINE OPERATOR * Telephone Encounter - Meaghan Graham MA - 09/03/2020 7:59 AM PACKAGE DYEING MACHINE OPERATOR Jr AGE DYEING MACHINE OPERATOR * Telephone Encounter - Salena Leal MA - 09/02/2020 4:43 PM PACKAGE DYEING MACHINE OPERATOR JR- Per [facility] they stated that you will need to addend your 08/27/20 office note to include that information. They said that this is per insurance guidelines. AGE DYEING MACHINE OPERATOR * Telephone Encounter - Barbara Musa MA - 09/02/2020 4:22 PM PACKAGE DYEING MACHINE OPERATOR ref AGE DYEING MACHINE OPERATOR * Telephone Encounter - Wesley Em MD - 09/02/2020 4:19 PM CST Patient is being evaluated for polycythemia sleep apnea is in the differential diagnosis the patient does have snoring daytime somnolence and wakes up un refreshed AGE DYEING MACHINE OPERATOR * Telephone Encounter - Barbara Musa MA - 09/02/2020 4:17 PM PACKAGE DYEING MACHINE OPERATOR jr AGE DYEING MACHINE OPERATOR * Telephone Encounter - Luz Cleary - 09/02/2020 4:03 PM CST Anay from [facility] called stating the office visit form 2-25-21 does not discuss anythingabout a sleep study, [facility] sees the message to order one but when [facility] gets audited there has to be an office visit discussing it. Please advise AGE DYEING MACHINE OPERATOR documented in this encounter Plan of Treatment Not on file documented as of this encounter Visit Diagnoses Not on filedocumented in this encounter Care Teams Records Management Technician Relationship Specialty Start Date End Date Wesley Em MD PCP - General 09/30/16 12/01/21 Trey Pinedo MD [address] [facility] [place] [address] Consulting Physician Neurology 05/09/19 documented as of this encounter
--- OUTSIDE RECORDS SUMMARY | 2024-06-18 19:15 | XMS_ITS | Encounter Summary ---
Author Organization [facility] Address [address] 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 Gender Identity Not on file Sexual Orientation [...] w/ IBC (10/18/2019 9:04 AM CDT) Pathologist [facility] Iron 128 50 - 150 mcg/dl [facility] TIBC 240(L) 250 - 400 mcg/dL [facility] Transferrin saturation 53(H) 20 - 50 % [facility] Blood specimen (specimen) 10/18/2019 9:04 AM CDT 10/18/2019 5:27 PM CDT us Clary Peters NP LAB BLOOD ORDERABLES Final R esult [facility] [address] [address] [place] [address] * (ABNORMAL) CBC with auto differential (10/18/2019 9:04 AM CDT) Pathologist [facility] WBC 7.0 3.8 - 9.9 K/cumm [facility] Hgb 19.3(H) 13.0 - 17.5 g/dL [facility] Hct 55.9(H) 38.9 - 50.3 % [facility] Plt 156 150 - 400 K/cumm [facility] MPV 10.6 9.1 - 12.3 fL [facility] RBC 5.72 4.30 - 5.80 M/cumm [facility] MCV 97.7(H) 81.3 - 96.4 fL [facility] MCH 33.7(H) 27.1 - 33.3 pg [facility] MCHC 34.5 32.3 - 35.7 g/dL [facility] RDW CV 12.9 11.1 - 14.9 % [facility] RDW SD 46.5 35.7 - 48.1 fL [facility] NRBC abs 0.00 0.00 - 0.01 K/cumm [facility] Blood specimen (specimen) 10/18/2019 9:04 AM CDT 10/18/2019 5:27 PM CDT us Clary Peters PICK UP TRUCK DRIVER LAB BLOOD ORDERABLES Final R esult [facility] [address] [place] [address] documented in this encounter Visit Diagnoses Diagnosis Erythrocytosis- Primary Polycythemia, secondary documented in this encounter Care Teams Cable Ferryboat Operator Relationship Specialty Start Date End Date Wesley Em MD PCP - General 09/30/16 12/01/21 Trey Pinedo MD [address] [facility] [address] [place] [address] [place] [address] [address] Consulting Physician Neurology 05/09/19 documented as of this encounter
--- OUTSIDE RECORDS SUMMARY | 2024-06-18 19:15 | XMS_ITS | Encounter Summary ---
Author Organization [facility] Address [address] [facility] [address] [place] [address] Care Team Providers Care Engagement Manager Name Role Phone Wesley Em MD Primary Care Provider [phone] Trey Pinedo MD Unavailable [phone] Reason for Visit * Reason Comments Edema Discuss Test Results Encounter Details Date Type Department Care Team (Late st Contact Info) Description 12/25/2020 1:45 PM CDT Office Visit [place] [facility] 2 [facility] [address] [place] [address] Wesley Em MD [address] [place] [address] [address] [place] [address] PAD (peripheral artery disease) (CMS/HCC) (Primary Dx); [...] file 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
--- OUTSIDE RECORDS SUMMARY | 2024-06-18 19:15 | XMS_ITS | Encounter Summary ---
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; TIA (transient ischemic attack); Mixed hyperlipidemia; Erythrocytosis Social History Tobacco Use Types Packs/Day Years Used Date Smoking Tobacco: Former Cigarettes 0.1 50 1 229 - 2009 Smokeless Tobacco: Never Alcohol Use Standard Drinks/Week Comments No 0 (1 standard drink = 0.6 oz pur e alcohol) PHQ-2 Answer Date Recorded PHQ-2 Score 0 02/22/2019 Sex and Gender Information Value Date Recorded Sex Assigned at Not on file 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 Gender Identity Not on file Sexual [...] 9:04 AM CDT 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 DIFFERENTIAL AUTO Routine 10/18/2019 9:0 4 AM CDT Erythrocytosis IRON PROFILE W/ IBC Routine 10/18/2019 9 :04 AM CDT Erythrocytosis CBC WITH AUTO DIFFERENTIAL Routine 10/18/2019 9:04 AM CDT Erythrocytosis LIPID PANEL Routine 10/18/2019 9:04 AM CDT TIA (transient ischemic attack) 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 Mixed hyperlipidemia COMPREHENSIVE METABOLIC PANEL Routine 10/18/2019 9:04 AM CDT 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 documented in this encounter Results * eGFR (10/18/2019 9:04 AM CDT) [facility] eGFR 61 mL/min/1.7 3 m2 [facility] GANT [...] NP LAB BLOOD ORDERABLES Final R esult [facility] [address] [place] [address] * Differential, auto (10/18/2019 9:04 AM CDT) Neutrophil abs 4.3 1.7 - 6.5 K/cumm [facility] Imm gran abs 0.1 0.0 - 0.1 K/cumm [facility] Lymphocyte abs 1.5 0.8 - 3.3 K/cumm [facility] Monocyte abs 0.7 0.2 - 0.8 K/cumm [facility] Eosinophil abs 0.3 0.0 - 0.5 K/cumm [facility] Basophil abs 0.1 0.0 - 0.1 K/cumm [facility] Neutrophil pct 61.6 % [facility] Comment: Interpretive Data Percent cell [...] revised on 2017. Basophil pct 2.0 % [facility] Comment: Interpretive Data Percent cell count reference ranges are not reported, since discordance with absolute values may lead to misinterpretation of CBC data. Current Interpretive Data was last revised on 2017. Blood specimen (specimen) 10/18/2019 9:04 AM CDT 10/18/2019 5:27 PM CDT us Clary Peters NP LAB BLOOD ORDERABLES Final R essaleem [facility] [address] [place] [address] * (ABNORMAL) Iron profile w/ IBC (10/18/2019 9:04 AM CDT) Iron 128 50 - 150 mcg/dl [facility] TIBC 240(L) 250 - 400 mcg/dL [facility] Transferrin saturation 53(H) 20 - 50 % [facility] Blood specimen (specimen) 10/18/2019 9:04 AM CDT 10/18/2019 5:27 PM CDT us Clary Peters NP LAB BLOOD ORDERABLES Final R esult Performing Organization Address [facility] de Phone Number [facility] [address] [place] [address] * (ABNORMAL) CBC with auto differential (10/18/2019 9:04 AM CDT) WBC 7.0 3.8 - 9.9 K/cumm [facility] Hgb 19.3(H) 13.0 - 17.5 g/dL [facility] CH Hct 55.9(H) 38.9 - 50.3 % [facility] CH Plt 156 150 - 400 K/cumm [facility] CH MPV 10.6 9.1 - 12.3 fL [facility] RBC 5.72 4.30 - 5.80 M/cumm [facility] CH MCV 97.7(H) 81.3 - 96.4 fL [facility] CH MCH 33.7(H) 27.1 - 33.3 pg [facility] MCHC 34.5 32.3 - 35.7 g/dL [facility] CH RDW CV 12.9 11.1 - 14.9 % [facility] CH RDW SD 46.5 35.7 - 48.1 fL [facility] NRBC abs 0.00 0.00 - 0.01 K/cumm [facility] Blood specimen (specimen) 10/18/2019 9:04 AM CDT 10/18/2019 5:27 PM CDT Clary Peters EGG PACKER LAB BLOOD ORDERABLES Final R [facility] Performing Organization Address [facility] de Phone Number [facility] GANT [address] [place] [address] * (ABNORMAL) Lipid panel (10/18/2019 9:04 AM CDT) Cholesterol 150 30 - 199 mg/dL [facility] Comment: Interpretive Data Ages < or = [...] 10/18/2019 5:27 PM CDT us Clary Peters EGG PACKER LAB BLOOD ORDERABLES Final R esult [facility] [address] [place] [address] * Comprehensive metabolic panel (10/18/2019 9:04 AM [...] BLOOD ORDERABLES Final R esult [facility] [address] [place] [address] documented in this encounter Visit Diagnoses Diagnosis 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 TIA (transient ischemic attack) Unspecified transient cerebral ischemia Mixed hyperlipidemia Erythrocytosis Polycythemia, secondary documented in this encounter Care Teams Mathematical Statistician Relationship Specialty Start Date End Date Wesley Em MD PCP - General 09/30/16 12/01/21 Trey Pinedo MD 4 [facility] [address] [facility] [place] [address] Consulting Physician Neurology 05/09/19 documented as of this encounter
--- OUTSIDE RECORDS SUMMARY | 2024-06-18 19:15 | XMS_ITS | Encounter Summary ---
Author Organization [facility] Medical Group Address [address] [place] [address] Care Team Providers Care Staff Air Tactical Officer Name Role Phone Wesley Em MD Primary Care Provider Trey Pinedo MD Unavailable [phone] Dorinda Chavez [facility] Unavailable [phone] Encounter Details Date Type Department Care Team (Late st Contact Info) Description 12/25/2020 Orders Only [facility] 2 [facility] [address] [place] [address] Wesley Em MD [address] [place] [address] [address] [place], [place] [id number] Sleep apnea, unspecified type (Primary Dx); PAD [...] on file 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 Gender Identity Not on file Sexual Orientation [...] Final Res ult [facility] (BETTY) 1 [facility] [place] [address] * Lipid panel (11/02/2021 12:21 PM CDT) [...] Final Res ult [facility] CARMICHAEL (BETTY) 1 [facility] [place] [address] * TSH (11/02/2021 12:21 PM CDT) Thyroid Stimulating Hormone 3.68 0.30 - 4.20 mcIUnit/mL [facility] CARMICHAEL (BETTY) Blood 11/02/2021 12:2 1 PM CDT 11/02/2021 2:07 PM CDT Narrative [facility] CAR[facility]HAEL (BETTY) - 11/02/2021 2:53 PM CDT Pt will be getting labs in the next month Wesley Em MD LAB BLOOD ORDERABLES Final Res ult Performing Organization Address [facility] Co de Phone Number [facility] CARMICHAEL (BETTY) 1 [facility] [place] [address] * T4, free (11/02/2021 12:21 PM CDT) Free T4 1.17 0.90 - 1.70 ng/dL [facility] CARMICHAEL (BETTY) Blood 11/02/2021 12:2 1 PM CDT 11/02/2021 2:07 PM CDT Narrative [facility] CARMICHAEL (BETTY) - 11/02/2021 2:53 PM CDT Pt will be getting labs in the next month Wesley Em MD LAB BLOOD ORDERABLES Final Res ult [facility] CARMICHAEL (BETTY) 1 [facility] [place] [address] documented in this encounter Visit Diagnoses Diagnosis Sleep apnea, unspecified type- Primary PAD (peripheral artery disease) (HCC) Unspecified peripheral vascular disease Fatigue, unspecified type Hypersomnia Hypersomnia, unspecified Essential hypertension Unspecified essential hypertension Type 2 diabetes mellitus with hyperlipidemia (HCC) Hypersomnia Hypersomnia, unspecified Essential hypertension Unspecified essential hypertension Fatigue, unspecified type Type 2 diabetes mellitus with hyperlipidemia (HCC) documented in this encounter Care Teams Staff Air Tactical Officer Relationship Specialty Start Date End Date Wesley Em MD PCP - General 09/30/16 12/01/21 Trey Pinedo MD [address] [place] [address] [address] [place] [address] Consulting Physician Neurology 05/09/19 Doirnda Chavez, AUTOMATIC SHIRRING MACHINE OPERATOR[address] [place] [address] [employer] 12/30/20 01/26/21 documented as of this encounter
--- OUTSIDE RECORDS SUMMARY | 2024-06-18 19:15 | XMS_ITS | Encounter Summary ---
Author Organization [facility] Medical Group Address [address] [place] [address] Care Team Providers Care Prep Room Supervisor Name Role Phone Wesley Em MD Primary Care Provider [phone] Trey Pinedo MD Unavailable [phone] Encounter Details Date Type Department Care Team (Late st Contact Info) Description 09/01/2020 Orders Only [facility] 2 [facility] [address] [place] [address] Wesley Em MD [address] [place] [address] [address] [place] [address] Sleep disorder (Primary Dx); Polycythemia Social History Tobacco Use Types Packs/Day Years Used Date Smoking Tobacco: Former Cigarettes 0.1 50 1 299 - 2009 Smokeless Tobacco: Never Alcohol Use [...] on: 09/02/2020 04:01 PM Modules accepted: 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 [place] [address] Consulting Physician Neurology 05/09/19 documented as of this encounter
--- OUTSIDE RECORDS SUMMARY | 2024-06-18 19:15 | XMS_ITS | Encounter Summary ---
Author Organization [facility] Medical Group Address [address] 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 Gender Identity Not on file Sexual Orientation Straight 01/23/2021 10 :16 PM CDT documented as of this encounter Progress Notes * Fariba Thompson - 02/26/2020 9:45 AM CDT Lab for amh due today and 08/2020 documented in this encounter Plan of Treatment Not on file documented as of this encounter Results * (ABNORMAL) Hemoglobin A1c (08/27/2020 9:56 AM ENGINE SPECIALIST) Hgb A1C 6.4(H) 4.0 - 5.6 % [facility] (BETTY) Estimated Average Glucose 137 mg/dL [facility] (BETTY) Comment: The ADA recommends reporting an estimated Average Glucose (eAG) with all Hemoglobin A1c results using the equation derived from a study of 507 normal and diabetic adults. ??Minority populations were underrepresented and children were not included. ?? (Diabetes Care 31:2499-8146, 2007). ??The eAG is not equivalent to a fasting glucose. Blood specimen (specimen) 08/27/2020 9:56 AM ENGINE SPECIALIST 08/27/2020 10:26 AM ENGINE SPECIALIST Narrative [facility] - 08/27/2020 11:14 AM ENGINE SPECIALIST fasting Wesley Em MD LAB BLOOD ORDERABLES Final Res ult [facility] (BETTY) 1 [facility] Department [place] [address] * (ABNORMAL) Albumin Creatinine Ratio, Urine (08/27/2020 9:56 AM ENGINE SPECIALIST) Albumin Ur 468.4 mg/L [facility] (BETTY) Comment: Interpretive Data No reference range established. Current interpretive data was last revised 2018. Testing performed by: [address] [place] [address] Creatinine Ur 148.5 mg/dL [facility] (BETTY) Comment: Interpretive Data No reference range established. Current interpretive data was last revised 2018. Testing performed by: [facility], [address] [place] [address], [place]., [address] Albumin Creatinine Ratio, Ur 315(H) 1 - 29 mg/g [facility] CARMICHAEL (BETTY) Comment:Testing performed by : [facility], [address] [place] [address], [place]., [address] Urine 08/27/2020 9:56 AM ENGINE SPECIALIST 08/27/2020 2:15 PM ENGINE SPECIALIST Narrative [facility] CARMICHAEL (BETTY) - 08/27/2020 3:27 PM ENGINE SPECIALIST fasting us Wesley Em MD LAB URINE ORDERABLES Final Res ult [facility] CARMICHAEL (BETTY) 1 [facility] Department [place] [address] * (ABNORMAL) Lipid panel (08/27/2020 9:56 AM ENGINE SPECIALIST) Cholesterol 142 30 - 199 mg/dL RUB[facility] [...] on 2018. HDL 32(L) >=40 mg/dL [facility] SCHROEDER) Comment: Interpretive Data [...] (BETTY) Blood specimen (specimen) 08/27/2020 9:56 AM ENGINE SPECIALIST 08/27/2020 10:26 AM ENGINE SPECIALIST Narrative [facility] (BETTY) - 08/27/2020 11:33 AM ENGINE SPECIALIST fasting us Wesley Em MD LAB BLOOD ORDERABLES Final Res ult [facility] (BETTY) 1 [facility] Department of Laboratories [place], [place] [address] * (ABNORMAL) Urinalysis reflex to microscopic and culture Urine, clean voided (08/27/2020 9:56 AM ENGINE SPECIALIST) Color, ur Yellow Yellow [facility] (BETTY) [...] Reflex to microscopic UA will be performed. [facility] ([facility]) Urine, clean voided 08/27/2020 9:56 AM ENGINE SPECIALIST 08/27/2020 11:06 AM ENGINE SPECIALIST Narrative [facility] ([facility]) - 08/27/2020 11:15 AM ENGINE SPECIALIST fasting Urine pH is affected by diet, medications, systemic acid-base disturbances, and renal tubular function. ??pH may affect urinary stone formation. ??For example, urine pH below 6.0 may help reduce the tendency for calcium phosphate stones and pH greater than 6.0 may reduce the tendency for uric acid stone formation. Source: Deane Splashup. Last revised 07-13-2017 us Wesley Em MD LAB MICROBIOLOGY - GENERAL ORD ERABLES Final Result [facility] (BETTY) 1 [facility] Department [place] [address] * (ABNORMAL) Comprehensive metabolic panel (08/27/2020 9:56 AM ENGINE SPECIALIST) Sodium 140 135 - 145 mmol/L [facility] ([facility]) Potassium, pl 3.8 3.3 - [...] pecimen Blood specimen (specimen) 08/27/2020 9:56 AM ENGINE SPECIALIST 08/27/2020 10:26 AM ENGINE SPECIALIST Narrative [facility] (BETTY) - 08/27/2020 11:32 AM ENGINE SPECIALIST fasting us Wesley Em MD LAB BLOOD ORDERABLES Final Res ult [facility] (BETTY) 1 [facility] Department [place] [address] * (ABNORMAL) CBC with auto differential (08/27/2020 9:56 AM ENGINE SPECIALIST) WBC 6.8 3.8 - 9.9 K/cumm [facility] [...] (BETTY) Blood specimen (specimen) 08/27/2020 9:56 AM ENGINE SPECIALIST 08/27/2020 10:26 AM ENGINE SPECIALIST Narrative [facility] (BETTY) - 08/27/2020 10:30 AM ENGINE SPECIALIST fasting Wesley Em MD LAB BLOOD ORDERABLES Final Res ult [facility] (BETTY) 1 [facility] Department of Laboratories [place], [place] [address] * PSA diagnostic (08/27/2020 9:56 AM ENGINE SPECIALIST) PSA-Total 1.92 <=6.20 ng/mL [facility] ([facility]ET[facility]) Comment: Interpretive Data ?AGE ? SEX ?REFERENCE INTERVAL 0 minutes-150 years ?Female ?None 0 minutes-49 years ? Male ?None ? 50-59 years ? Male ?0-3.90 ? 60-69 years ? Male ?0-5.40 ? 70-79 years ? Male ?0-6.20 ? 80-150 years ?Male ?0-6.20 Current interpretive data last revised 2018. Testing performed by: [facility], [address] [place] [address]., [address] Blood specimen (specimen) 08/27/2020 9:56 AM ENGINE SPECIALIST 08/27/2020 2:04 PM ENGINE SPECIALIST Narrative [facility] CARMICHAEL (BETTY) - 08/27/2020 2:53 PM ENGINE SPECIALIST fasting us Wesley Em MD LAB BLOOD ORDERABLES Final Res ult [facility] CARMICHAEL ([place]) 1 [facility] Department [place] [address] documented in this encounter Visit Diagnoses Diagnosis [...] (HCC) documented in this encounter Care Teams Core Finisher Relationship Specialty Start Date End Date Wesley Em MD PCP - General 09/30/16 12/01/21 Trey Pinedo MD [address] [place] [address] [address] [place] [address] Consulting Physician Neurology 05/09/19 documented as of this encounter
--- OUTSIDE RECORDS SUMMARY | 2024-06-18 19:15 | XMS_ITS | Encounter Summary ---
Author Organization [facility] Medical Group Address [address] [place] [address] Care Team Providers Care Portuguese Tutor Name Role Phone Wesley mE MD Primary Care Provider [phone] Trey Pinedo MD Unavailable Encounter Details Date Type Department Care Team (Late st Contact Info) Description 12/28/2020 Telephone [facility] [address] 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
--- OUTSIDE RECORDS SUMMARY | 2024-06-18 19:15 | XMS_ITS | Encounter Summary ---
Author Organization [facility] Medical Group Address [address] [place] [address] Care Team Providers Care Health Administrator Name Role Phone Wesley Em MD Primary Care Provider [phone] Trey Pinedo MD Unavailable [phone] Encounter Details Date Type Department Care Team (Late st Contact Info) Description 01/14/2020 Orders Only [facility] 2 [facility] [address] [place] [address] Wesley Em MD 2 [facility] [address] [place] [address] Type 2 diabetes mellitus with hyperlipidemia (CMS/HCC) [...] on file Legal 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 Gender Identity Not on file Sexual Orientation Straight 01/23/2021 10 :16 PM CDT documented as of this encounter Miscellaneous Notes * Addendum Note - Keesha Leos, [place] - 01/14/2020 9:16 AM CDTAddended by: KEESHA LEOS on: 02/26/2020 10:21 AM Modules accepted: Orders documented in this encounter Plan of Treatment Not on file documented as of this encounter Results * Basic metabolic panel (02/26/2020 10:29 AM CDT) Sodium 135 135 - 145 mmol/L [facility] (BETTY) Potassium, pl 3.9 3.3 - 4.9 mmol/L [facility] (BETTY) Chloride 100 97 - 110 mmol/L [facility] ([place]ET[place]) CO2 27 22 - 32 mmol/L [facility] (BETTY) Anion gap 8 2 - 15 mmol/L [facility] (BETTY) BUN 21 8 - 25 mg/dL [facility] (BETTY) Creatinine 1.15 0.80 - 1.30 mg/dL [facility] ([facility]) Glucose 153 70 - 199 mg/dL [facility] (BETTY) Comment: Interpretive Data Fasting glucose [...] 2017. Calcium 8.9 8.5 - 10.3 mg/dL [facility] (BETTY) Blood specimen (specimen) 02/26/2020 10:29 AM CDT 02/26/2020 10:46 AM CDT us Wesley Em MD LAB BLOOD ORDERABLES Final Res ult [facility] CAR[facility] (BETTY) 1 [facility] Department [place] [address] * (ABNORMAL) CBC with auto differential (02/26/2020 10:29 AM CDT) WBC 6.8 3.8 - 9.9 K/cumm [facility] (BETTY) Hgb 18.2(H) 13.0 - 17.5 g/dL [facility] (BETTY) Hct 51.7(H) 38.9 - 50.3 % [facility] (BETTY) Plt 152 150 - 400 K/cumm [facility] (BETTY) MPV 10.4 9.1 - 12.3 fL [facility] ([facility]) RBC 5.39 4.30 - 5.80 M/cumm [facility] (BETTY) MCV 95.9 81.3 - 96.4 fL [facility] (BETTY) MCH 33.8(H) 27.1 - 33.3 pg [facility] ([facility]) MCHC 35.2 32.3 - 35.7 g/dL [facility] ([facility]) RDW CV 12.6 11.1 - 14.9 % [facility] ([facility]) RDW SD 44.3 35.7 - 48.1 fL [facility] ([facility]) NRBC abs 0.00 0.00 - 0.01 K/cumm [facility] ([facility]) Blood specimen (specimen) 02/26/2020 10:29 AM CDT 02/26/2020 10:46 AM CDT us Wesley Em MD LAB BLOOD ORDERABLES Final Res ult [facility] ([facility]) 1 [facility] Department [place] [address] * (ABNORMAL) Hemoglobin A1c (02/26/2020 10:29 AM CDT) Hgb A1C 5.9(H) 4.0 - 5.6 % [facility] ([facility]) Estimated Average Glucose 123 mg/dL [facility] (BETTY) Comment: The ADA recommends reporting an estimated Average Glucose (eAG) with all Hemoglobin A1c results using the equation derived from a study of 507 normal and diabetic adults. ??Minority populations were underrepresented and children were not included. ?? (Diabetes Care 31:1242-5005, 2008). ??The eAG is not equivalent to a fasting glucose. Blood specimen (specimen) 02/26/2020 10:29 AM CDT 02/26/2020 10:46 AM CDT Wesley Em MD LAB BLOOD ORDERABLES Final Res ult Performing Organization Address City/[facility]/ZIP Co de Phone Number [facility] CARMICHAEL (BETTY) 1 [facility] [place] [address] * (ABNORMAL) Albumin Creatinine Ratio, Urine (02/26/2020 10:27 AM CDT) Albumin Ur 123.9 mg/L [facility] ([facility]) Comment: Interpretive Data No reference range established. Current interpretive data was last revised 2018. Testing performed by: [facility], [address] [place] [address]., [address] Creatinine Ur 97.8 mg/dL R[facility] (BETTY) Comment: Interpretive Data No reference range established. Current interpretive data was last revised 2018. Testing performed by: [facility], [address] [place] [address]., [address] Albumin Creatinine Ratio, Ur 127(H) 1 - 29 mg/g [facility] ([facility]) Comment:Testing performed by : [facility], [address] [place] [address]., [address] Urine 02/26/2020 10:2 7 AM CDT 02/26/2020 1:58 PM CDT us Wesley Em MD LAB URINE ORDERABLES Final Res ult Performing Organization Address [facility] Co de Phone Number [facility] CARMICHAEL ([place]) 1 [facility] [place] [address] documented in this encounter Visit Diagnoses Diagnosis Type 2 diabetes mellitus with hyperlipidemia (HCC)- Primary documented in this encounter Care Teams Health Administrator Relationship Specialty Start Date End Date Wesley Em MD PCP - General 09/30/16 12/01/21 Trey Pinedo MD 4 [facility] [address] [facility] [place] [address] Consulting Physician Neurology 05/09/19 documented as of this encounter
--- OUTSIDE RECORDS SUMMARY | 2024-06-18 19:15 | XMS_ITS | Encounter Summary ---
Author Organization [facility] Medical [facility] Address [address] [place] [address] Care Team Providers Care Fire Prevention Engineer Name Role Phone Wesley Em MD Primary Care Provider [phone] Trey Pinedo MD Unavailable [phone] Reason for Visit * Reason Comments Coronary Artery Disease Hypertension Diabetes Encounter Details Date Type Department Care Team (Late st Contact Info) Description 02/26/2020 9:00 AM CDT Office Visit [facility] [facility] [address] [facility] [address] [place] [address] Wesley Em MD [address] [place] [address] [address] [place] [address] 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); Body [...] on file 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 Gender Identity Not on file [...] for this visit: 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
--- OUTSIDE RECORDS SUMMARY | 2024-06-18 19:15 | XMS_ITS | Encounter Summary ---
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
--- OUTSIDE RECORDS SUMMARY | 2024-06-18 19:15 | XMS_ITS | Encounter Summary ---
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
--- OUTSIDE RECORDS SUMMARY | 2024-06-18 19:15 | XMS_ITS | Encounter Summary ---
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
--- OUTSIDE RECORDS SUMMARY | 2024-06-18 19:15 | XMS_ITS | Encounter Summary ---
Author Organization [facility] Address [address] [place] [address] Care Team Providers Care Batter Scaler Name Role Phone Wesley Em MD Primary Care Provider [phone] Trey Pineod MD Unavailable [phone] Encounter Details Date Type Department Care Team (Late st Contact Info) Description 10/28/2019 Orders Only [place] [facility] 2 [facility] [address] [place] [address] Wesley Em MD [address] [place] [address] [address] [place] [address] Mayo's esophagus with dysplasia (Primary Dx) Social History Tobacco Use Types Packs/Day Years Used Date Smoking Tobacco: Former Cigarettes 0.1 50 1 819 - 2009 Smokeless Tobacco: Never Alcohol Use Standard Drinks/Week Comments No 0 (1 standard drink = 0.6 oz pur e alcohol) PHQ-2 Answer Date Recorded PHQ-2 Score 0 02/22/2019 Sex and Gender Information Value Date Recorded Sex Assigned at Not on file 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
--- OUTSIDE RECORDS SUMMARY | 2024-06-18 19:15 | XMS_ITS | Encounter Summary ---
Author Organization 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
--- OUTSIDE RECORDS SUMMARY | 2024-06-18 19:15 | XMS_ITS | Encounter Summary ---
Author Organization [facility] Medical [facility] Address [address] [place] [address] Care Team Providers Care Machine Pecan Gatherer Name Role Phone Wesley Em MD Primary Care Provider [phone] Trey Pinedo MD Unavailable [phone] Reason for Visit * Reason Comments Medicare Annual Wellness Visit Subsequen t medicare wellness Encounter Details Date Type Department Care Team (Late st Contact Info) Description 10/25/2019 11:30 AM CDT Office Visit [place] [facility] [address] [facility] [address] [place] [address] Wesley Em MD [address] [place] [address] [address] [place] [address] Medicare annual wellness visit, subsequent (Primary Dx); Class 1 obesity with body mass index (BMI) of 30.0 to 30.9 in adult, unspecified obesity type, unspecified whether serious comorbidity present; Essential hypertension; Bilateral carotid artery stenosis; Polycythemia; Mixed hyperlipidemia; 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 katherin solis on a regular basis [...] over 1.5 and the new recommendations from [facility] he states he will discuss it [...] a low-dose CT scan every January at [facility] he has had a CT of [...] patient here in the practice he worked [employer] for number of years in fact 40 [...] CT scan of the chest low-dose at [facility] for lung cancer screening January along [...] (HCC) documented in this encounter Care Teams Machine Pecan Gatherer Relationship Specialty Start Date End Date Wesley Em MD PCP - General 09/30/16 12/01/21 Trey Pinedo MD [address] [place] [address] [address] [place] [address] Consulting Physician Neurology 05/09/19 documented as of this encounter
--- OUTSIDE RECORDS SUMMARY | 2024-06-18 19:15 | XMS_ITS | Encounter Summary ---
Author Organization [facility] Medical [facility] Address [address] [place] [address] Care Team Providers Care Assistant Controller Name Role Phone Wesley Em MD Primary Care Provider [phone] Trey Pinedo MD Unavailable Encounter Details Date Type Department Care Team (Late st Contact Info) Description 09/09/2020 Orders Only [place] [facility] 2 [facility] [address] [place] [address] Wesley Em MD [address] [place] [address] [address] [place] [address] Cigarette smoker (Primary Dx) Social History Tobacco Use Types Packs/Day Years Used Date Smoking Tobacco: Former Cigarettes 0.1 50 1 059 - 2009 Smokeless Tobacco: Never Alcohol Use Standard Drinks/Week Comments No 0 (1 standard drink = 0.6 oz pur e alcohol) PHQ-2 Answer Date Recorded PHQ-2 Total Score (If total score is 3 or more points, staff should administer the PHQ-9) 0 08/27/2020 Sex and Gender Information Value Date Recorded Sex Assigned at Not on file 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
--- OUTSIDE RECORDS SUMMARY | 2024-06-18 19:15 | XMS_ITS | Encounter Summary ---
Author Organization [facility] Medical [facility] Address [address] [facility] [place] [address] Care Team Providers Care Mining Machinery Assembler Name Role Phone Wesley Em MD Primary Care Provider [phone] Trey Pinedo MD Unavailable [phone] Encounter Details Date Type Department Care Team (Late st Contact Info) Description 10/18/2019 Orders Only [place] [facility] 2 [facility] [address] [place] [address] Wesley Em MD [address] [place] [address] [address] [place] [address] Social History Tobacco Use Types Packs/Day Years Used Date Smoking Tobacco: Former Cigarettes 0.1 50 1 589 - 2009 Smokeless Tobacco: Never Alcohol Use Standard Drinks/Week Comments No 0 (1 standard drink = 0.6 oz pur e alcohol) PHQ-2 Answer Date Recorded PHQ-2 Score 0 02/22/2019 Sex and Gender Information Value Date Recorded Sex Assigned at Not on file 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 [place] [address] Consulting Physician Neurology 05/09/19 documented as of this encounter
--- OUTSIDE RECORDS SUMMARY | 2024-06-18 19:15 | XMS_ITS | Encounter Summary ---
Author Organization [facility] Healthcare Address [address] [place] [address] Care Team Providers Care Harness Racing Handicapper Name Role Phone Wesley Em MD Primary Care Provider [phone] Trey Pinedo MD Unavailable [phone] Encounter Details Date Type Department Care Team (Late st Contact Info) Description 02/26/2020 10:25 AM CDT [address] [address] Wesley Em MD [address] [place] [address] Type 2 diabetes mellitus with hyperlipidemia ([facility]/HCC) Discharge Disposition: Discharge to home or self care Social History Tobacco Use Types Packs/Day Years Used Date Smoking Tobacco: Former Cigarettes 0.1 50 1 889 - 2008 Smokeless Tobacco: Never Alcohol Use Standard Drinks/Week Comments No 0 (1 standard drink = 0.6 oz pur e alcohol) PHQ-2 Answer Date Recorded PHQ-2 Score 0 02/22/2019 Sex and Gender Information Value Date Recorded Sex Assigned at Not on file 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 Estimated glomerular filtration [...] Final Res ult [facility] ([place]ET[place]) [address] [facility] [place] [address] * Differential, auto (02/26/2020 10:29 AM CDT) [...] ORDERABLES Final Res ult Performing Organization Address [facility] de Phone Number RUB[facility] CARMICHAEL (BETTY) [address] [facility] Department [place] [address] * (ABNORMAL) Hemoglobin A1c (02/26/2020 10:29 AM [...] children were not included. ?? (Diabetes Care 31:6721-7355, 2008). ??The eAG is not equivalent to a fasting glucose. Blood specimen (specimen) 02/26/2020 10:29 AM CDT 02/26/2020 10:46 AM CDT Wesley Em MD LAB BLOOD ORDERABLES Final Res ult Performing Organization Address [facility]/ZIP Co de Phone Number [facility] ([place]) [address] [facility] [place] [address] * (ABNORMAL) CBC with auto differential (02/26/2020 [...] Final Res ult [facility] ([place]) [address] [facility] [place] [address] * Basic metabolic panel (02/26/2020 10:29 AM CDT) Pathologist [facility] Sodium 135 135 - 145 mmol/L [facility] ([place]) Potassium, pl 3.9 3.3 - 4.9 mmol/L [facility] ([place]) Chloride 100 97 - 110 mmol/L [facility] ([place]) CO2 27 22 - 32 mmol/L [facility] ([place]) Anion gap 8 2 - 15 mmol/L [facility] ([place]) BUN 21 8 - 25 mg/dL [facility] ([place]) Creatinine 1.15 0.80 - 1.30 mg/dL [facility] ([facility]) Glucose 153 70 - 199 mg/dL [facility] ([place]ET[place]) Comment: Interpretive Data Fasting glucose [...] 2017. Calcium 8.9 8.5 - 10.3 mg/dL [facility] (BETTY) Blood specimen (specimen) 02/26/2020 10:29 AM CDT 02/26/2020 10:46 AM CDT us Wesley Em MD LAB BLOOD ORDERABLES Final Res ult [facility] (BETTY) [address] [facility] [place] [address] * (ABNORMAL) Albumin Creatinine Ratio, Urine (02/26/2020 10:27 AM CDT) Albumin Ur 123.9 mg/L [facility] ([place]) Comment: Interpretive Data No reference range established. Current interpretive data was last revised 2018. Testing performed by: [facility], [address] [place] [address], [place]., [address] Creatinine Ur 97.8 mg/dL [facility] ([place]) Comment: Interpretive Data No reference range established. Current interpretive data was last revised 2018. Testing performed by: [facility], [address] [place] [address]., [address] Albumin Creatinine Ratio, Ur 127(H) 1 - 29 mg/g [facility] CARMICHAEL (BETTY) Comment:Testing performed by : [facility], [address] [place] [address], [place]., [address] Urine 02/26/2020 10:2 7 AM CDT 02/26/2020 1:58 PM CDT us Wesley Em MD LAB URINE ORDERABLES Final Res ult [facility] ([place]) [address] [facility] [place] [address] documented in this encounter Visit Diagnoses Diagnosis Type 2 diabetes mellitus with hyperlipidemia (HCC) documented in this encounter Care Teams Harness Racing Handicapper Relationship Specialty Start Date End Date Wesley Em MD PCP - General 09/30/16 12/01/21 Trey Pinedo MD [address] [place] [address] [address] [place] [address] Consulting Physician Neurology 05/09/19 documented as of this encounter
--- OUTSIDE RECORDS SUMMARY | 2024-06-18 19:15 | XMS_ITS | Encounter Summary ---
Author Organization [facility] Medical [facility] Address [address] [facility] [address] [address] [place] [address] Care Team Providers Care Industrial Engineering Technician Name Role Phone Wesley Em MD Primary Care Provider [phone] Trey Pinedo MD Unavailable [phone] Encounter Details Date Type Department Care Team (Late st Contact Info) Description 11/20/2019 Orders Only [place] [facility] 2 [facility] [address] [place] [address] Wesley Em MD [address] [place] [address] [address] [place] [address] Social History Tobacco Use Types Packs/Day Years Used Date Smoking Tobacco: Former Cigarettes 0.1 50 1 039 - 2009 Smokeless Tobacco: Never Alcohol Use Standard Drinks/Week Comments No 0 (1 standard drink = 0.6 oz pur e alcohol) PHQ-2 Answer Date Recorded PHQ-2 Score 0 02/22/2019 Sex and Gender Information Value Date Recorded Sex Assigned at Not on file 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
--- OUTSIDE RECORDS SUMMARY | 2024-06-18 19:15 | XMS_ITS | Encounter Summary ---
Author Organization [facility] Medical [facility] Address [address] [place] [address] Care Team Providers Care Cigar Head Stringer Name Role Phone Wesley Em MD Primary Care Provider [phone] Trey Pinedo MD Unavailable [phone] Dorinda Chavez [facility] Unavailable Reason for Visit * Reason Comments Hospital Follow Up [facility] fell on 12/25/20 rib fractures Allergic Reaction right forearm at IV site Vomiting while eating X 2 day s Diverticulitis on antibiotics Encounter Details Date Type Department Care Team (Late st Contact Info) Description 01/01/2021 3:15 PM CDT Office Visit [place] [facility] 2 [facility] [address] [place] [address] Wesley Em MD [address] [place] [address] [address] [place] [address] Diverticulitis (Primary Dx); Body mass index (BMI) [...] Attends Club or Organization Meetings Not on joyr e 12/31/2020 Are you , , di [...] on file 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
--- OUTSIDE RECORDS SUMMARY | 2024-06-18 19:15 | XMS_ITS | Encounter Summary ---
Author Organization [facility] Medical Group Address [address] [facility] [address] [place] [address] Care Team Providers Care Weapons Engineer Name Role Phone Wesley Em MD Primary Care Provider [phone] Trey Pinedo MD Unavailable [phone] Encounter Details Date Type Department Care Team (Late st Contact Info) Description 10/25/2019 Orders Only [place] [facility] [address] [facility] [address] [place] [address] Wesley Em MD 2 [facility] [address] [place] [address] Screening for prostate cancer (Primary Dx); Personal history of nicotine dependence Social History Tobacco Use Types Packs/Day Years Used Date Smoking Tobacco: Former Cigarettes 0.1 50 1 569 - 2009 Smokeless Tobacco: Never Alcohol Use Standard Drinks/Week Comments No 0 (1 standard drink = 0.6 oz pur e alcohol) PHQ-2 Answer Date Recorded PHQ-2 Score 0 02/22/2019 Sex and Gender Information Value Date Recorded Sex Assigned at Not on file 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 Gender Identity Not on file Sexual [...] ORDERABLES Final Res ult Performing Organization Address City/State/[facility] Co de Phone Number RUB[facility] [address] [facility] Department [place] [address] documented in this encounter Visit Diagnoses Diagnosis Screening for prostate cancer- Primary Special screening for malignant neoplasm of prostate Personal history of nicotine dependence documented in this encounter Care Teams Weapons Engineer Relationship Specialty Start Date End Date Wesley Em MD PCP - General 09/30/16 12/01/21 Trey Pinedo MD [address] [place] [address] [place] [address] Consulting Physician Neurology 05/09/19 documented as of this encounter
--- OUTSIDE RECORDS SUMMARY | 2024-06-18 19:15 | XMS_ITS | Encounter Summary ---
Author Organization [facility] Medical Group Address [address] [place] [address] Care Team Providers Care Student Loan Counselor Name Role Phone Weslye Em MD Primary Care Provider [phone] Trey Pinedo MD Unavailable [phone] Reason for Referral * Diagnostic Imaging (Routine) - Closed Specialty Diagnoses / Procedures Referred By Contac t Referred To Contact Radiology Diagnoses History of tobacco abuse Encounter for screening for lung cancer Procedures CT Lung Cancer Screening Wesley Em MD Phone: tel: fax: [address] [address] Referral ID Status Reason Start Date Expiration Date Visits Re quested Visits Authorized [id number] Closed 08/27/2020 09/26/2021 1 1 [employer]OR MEL[employer] Encounter Details Date Type Department Care Team (Late st Contact Info) Description 08/27/2020 Orders Only [place] [facility] [address] [facility] [address] [place] [address] Wesley Em MD [address] [place] [address] [address] [place] [address] History of tobacco abuse (Primary Dx); Encounter [...] file Legal 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 Gender Identity Not on file Sexual Orientation Straight 01/23/2021 10 :16 PM CDT documented as of this encounter Progress Notes * Ganesh Calvert MA - 08/27/2020 9:31 AM CST Pt will use [facility] for both sets of labs [employer]EL[employer] documented in this encounter Plan of Treatment Not on file documented as of this encounter Results * CT Lung Cancer Screening (09/09/2020 1:02 PM SUPERVISOR MELT HOUSE) Anatomical Region Laterality Modality Chest N/A Computed Tomogra phy 09/09/2020 1:15 PM SUPERVISOR MELT HOUSE Impressions 09/09/2020 1:19 PM SUPERVISOR MELT HOUSE LUNG RADS CATEGORY 1 WITH NO SUSPICIOUS PULMONARY NODULES. COPD. ATHEROSCLEROSIS. CONTINUED [address]OW-DOSE CT SURVEILLANCE Electronically signed by: Shorty Carvalho M.D. Narrative 09/09/2020 1:19 PM SUPERVISOR MELT HOUSE EXAMINATION: CT LUNG CANCER SCREENING dated 09/09/2020 1:00 PM HISTORY: 74-year-old man lung cancer screening. 25 pack-year history, quit smoking July 2008 TECHNIQUE: Low-dose noncontrast spiral CT of multiplanar reconstructions FINDINGS: Comparison with multiple priors most recently dated 02/14/2019. Chute Worker radiograph once again demonstrates tortuous aorta with [...] with multiple priors most recently dated 02/14/2019. Chute Worker radiograph once again demonstrates tortuous aorta with [...] cancer documented in this encounter Care Teams Student Loan Counselor Relationship Specialty Start Date End Date Wesley Em MD PCP - General 09/30/16 12/01/21 Trey Pinedo MD [address] [place] [address] Consulting Physician Neurology 05/09/19 documented as of this encounter
--- OUTSIDE RECORDS SUMMARY | 2024-06-18 19:15 | XMS_ITS | Encounter Summary ---
Author Organization [facility] Medical Group Address [address] [place] [address] Care Team Providers Care Medication Nurse Name Role Phone Wesley Em MD Primary Care Provider [phone] Trey Pinedo MD Unavailable [phone] Encounter Details Date Type Department Care Team (Late st Contact Info) Description 08/31/2020 Telephone [place] [facility] 2 [facility] [address] [place] [address] Wesley Em MD [address] [place] [address] [address] [place], [place] [id number] Social History Tobacco Use Types Packs/Day Years Used Date Smoking Tobacco: Former Cigarettes 0.1 50 1 989 - 2009 Smokeless Tobacco: Never Alcohol Use Standard Drinks/Week Comments No 0 (1 standard drink = 0.6 oz pur e alcohol) PHQ-2 Answer Date Recorded PHQ-2 Total Score (If total score is 3 or more points, staff should administer the PHQ-9) 0 08/27/2020 Sex and Gender Information Value Date Recorded Sex Assigned at Not on file Legal 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 Male 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 Gender Identity Not on file Sexual Orientation Straight 01/23/2021 10 :16 PM CDT documented as of this encounter Miscellaneous Notes * Addendum Note - Martha Alejo MA - 09/01/2020 3:06 PM CSTAddended by: MARTHA ALEJO on: 09/01/2020 03:06 PM Modules accepted: Orders WARE DESIGN ENGINEER * Telephone Encounter - Martha Alejo MA - 09/01/2020 3:05 PM HARDWARE DESIGN ENGINEER Patient aware lab order placed for [facility] sent to referrals WARE DESIGN ENGINEER * Addendum Note - Martha Alejo MA - 09/01/2020 12:10 PM CSTAddended by: MARTHA ALEJO on: 09/01/2020 12:10 PM Modules accepted: Orders WARE DESIGN ENGINEER * Telephone Encounter - Martha Alejo MA - 08/31/2020 3:02 PM HARDWARE DESIGN ENGINEER LMOM for patient to call office, Please transfer call to [facility] 2 WARE DESIGN ENGINEER * Telephone Encounter - Martha Alejo MA - 08/31/2020 2:57 PM HARDWARE DESIGN ENGINEER ----- Message from Wesley Em MD sent at 08/31/2020 8:13 AM HARDWARE DESIGN ENGINEER ----- Patient has elevated red blood cells this is consistent with a diagnosis of polycythemia have the patient do pulmonary function test and 6 minutes walk test have the patient check serum EPO level andcarboxyhemoglobin level and also schedule sleep study Diagnosis polycythemia WARE DESIGN ENGINEER documented in this encounter Plan of Treatment Not on file documented as of this encounter Visit Diagnoses Diagnosis Polycythemia- Primary Polycythemia, secondary documented in this encounter Care Teams Medication Nurse Relationship Specialty Start Date End Date Wesley Em MD PCP - General 09/30/16 12/01/21 Trey Pinedo MD [address] [facility] [address] Consulting Physician Neurology 05/09/19 documented as of this encounter
--- OUTSIDE RECORDS SUMMARY | 2024-06-18 19:15 | XMS_ITS | Encounter Summary ---
Author Organization [facility] Healthcare Address [address] [place] [address] Care Team Providers Care Rn Oncology Research Name Role Phone Wesley Em MD Primary Care Provider [phone] Trey Pinedo MD Unavailable [phone] Encounter Details Date Type Department Care Team (Late st Contact Info) Description 08/27/2020 9:55 AM CITY JAILER Lab [facility] [address] [place] [address] Wesley Em MD [address] [place] [id number] Screening PSA (prostate specific antigen); Benign prostatic hyperplasia, unspecified whether lower urinary tract symptoms present; Essential hypertension; Mixed hyperlipidemia; Type 2 diabetes mellitus with hyperlipidemia ([facility]) Discharge Disposition: Discharge to home [...] on file Legal Sex Male 6:00 PM CITY JAILER Gender Identity Not on file Sexual Orientation [...] and also schedule sleep study Diagnosis polycythemia JAILER documented in this encounter Plan of Treatment Not on file documented as of this encounter Procedures Procedure Name Priority Date/Time Associated Diagnosis Comments EGFR Routine 08/27/2020 9:56 AM CITY JAILER Essential hypertension Mixed hyperlipidemia Type 2 diabetes mellitus with hyperlipidemia (CMS/HCC) DIFFERENTIAL AUTO Routine 08/27/2020 9:5 6 AM CITY JAILER Essential hypertension Mixed hyperlipidemia Type 2 diabetes mellitus with hyperlipidemia (CMS/HCC) URINALYSIS AND REFLEX TO MICROSCOPIC AND CULTURE Routine 08/27/2020 9:56 AM CITY JAILER Essential hypertension Mixed hyperlipidemia Type 2 diabetes mellitus with hyperlipidemia (CMS/HCC) CBC WITH AUTO DIFFERENTIAL Routine 08/27/2020 9:56 AM CITY JAILER Essential hypertension Mixed hyperlipidemia Type 2 diabetes mellitus with hyperlipidemia (CMS/HCC) ALBUMIN CREATININE RATIO, URINE Routine 08/27/2020 9:56 AM CITY JAILER Essential hypertension Mixed hyperlipidemia Type 2 diabetes mellitus with hyperlipidemia (CMS/HCC) URINALYSIS, MICROSCOPIC ONLY Routine 08/27/2020 9:56 AM CITY JAILER Essential hypertension Mixed hyperlipidemia Type 2 diabetes mellitus with hyperlipidemia (CMS/HCC) PSA DIAGNOSTIC Routine 08/27/2020 9:56 AM CITY JAILER Screening PSA (prostate specific antigen) Benign prostatic hyperplasia, unspecified whether lower urinary tract symptoms present HEMOGLOBIN A1C Routine 08/27/2020 9:56 AM CITY JAILER Essential hypertension Mixed hyperlipidemia Type 2 diabetes mellitus with hyperlipidemia (CMS/HCC) LIPID PANEL Routine 08/27/2020 9:56 AM CITY JAILER Essential hypertension Mixed hyperlipidemia Type 2 diabetes mellitus with hyperlipidemia (CMS/HCC) COMPREHENSIVE METABOLIC PANEL Routine 08/27/2020 9:56 AM CITY JAILER Essential hypertension Mixed hyperlipidemia Type 2 diabetes mellitus with hyperlipidemia (CMS/HCC) documented in this encounter Results * eGFR (08/27/2020 9:56 AM CITY JAILER) eGFR 65 mL/min/1.7 3 m2 [facility] CARMICHAEL [...] 2020 Blood specimen (specimen) 08/27/2020 9:56 AM CITY JAILER 08/27/2020 10:26 AM CITY JAILER us Wesley Em MD LAB BLOOD ORDERABLES Final Res ult [facility] CARMICHAEL ([place]) 1 [facility] [place] [address] * (ABNORMAL) Urinalysis, microscopic only (08/27/2020 9:56 AM CITY JAILER) WBC, ur 0-5 0 - 5 /HPF [facility] ([place]) RBC, ur 0-2 0 - 2 /HPF [facility] ([place]) Mucous, ur Present(A) [facility] A ([place]) Culture Reflex Comment Reflex conditions for urine culture (WBC >10) not met. [facility] ([place]) Urine, clean voided 08/27/2020 9:56 AM CITY JAILER 08/27/2020 11:06 AM CITY JAILER us Wesley Em MD LAB URINE ORDERABLES Final Res ult R[facility] ([place]) 1 [facility] [place] [address] * Differential, auto (08/27/2020 9:56 AM CITY JAILER) Pathologist [facility] Neutrophil abs 4.8 1.7 - 6.5 K/cumm [...] 2017. Blood specimen (specimen) 08/27/2020 9:56 AM CITY JAILER 08/27/2020 10:26 AM CITY JAILER us Wesley Em MD LAB BLOOD ORDERABLES Final Res ult [facility] CARMICHAEL ([place]) 1 [facility] [place] [address] * (ABNORMAL) Hemoglobin A1c (08/27/2020 9:56 AM CITY JAILER) Hgb A1C 6.4(H) 4.0 - 5.6 % [facility]MICHAEL ([place]) Estimated Average Glucose 137 mg/dL [facility] ([place]) Comment: The ADA recommends reporting an estimated Average Glucose (eAG) with all Hemoglobin A1c results using the equation derived from a study of 507 normal and diabetic adults. ??Minority populations were underrepresented and children were not included. ?? (Diabetes Care 31:3283-8433, 2008). ??The eAG is not equivalent to a fasting glucose. Blood specimen (specimen) 08/27/2020 9:56 AM CITY JAILER 08/27/2020 10:26 AM CITY JAILER Narrative [facility] CARMICHAEL ([place]) - 08/27/2020 11:14 AM CITY JAILER fasting Wesley mE MD LAB BLOOD ORDERABLES Final Res ult Performing Organization Address [facility] Co de Phone Number RUBENS CARMICHAEL ([place]) 1 [facility] [place] [address] * (ABNORMAL) Albumin Creatinine Ratio, Urine (08/27/2020 9:56 AM CITY JAILER) Albumin Ur 468.4 mg/L [facility] ([place]) Comment: Interpretive Data No reference range established. Current interpretive data was last revised 2018. Testing performed by: [facility], [address] [place] [address]., [id number] Creatinine Ur 148.5 mg/dL [facility] CARMICHAEL ([place]) Comment: Interpretive Data No reference range established. Current interpretive data was last revised 2018. Testing performed by: [facility], [address] [place] [address]., [id number] Albumin Creatinine Ratio, Ur 315(H) 1 - 29 mg/g [facility] CARMICHAEL ([place]) Comment:Testing performed by : [facility], [address] [place] [address]., [id number] Urine 08/27/2020 9:56 AM CITY JAILER 08/27/2020 2:15 PM CITY JAILER Narrative [facility] CARMICHAEL ([place]) - 08/27/2020 3:27 PM CITY JAILER fasting Wesley Em MD LAB URINE ORDERABLES Final Res ult Performing Organization Address City/[facility]/ZIP Co de Phone Number RUBENS CARMICHAEL ([place]) 1 [facility] [place] [address] * (ABNORMAL) Lipid panel (08/27/2020 9:56 AM CITY JAILER) Cholesterol 142 30 - 199 mg/dL RUBENS [...] ([place]) Blood specimen (specimen) 08/27/2020 9:56 AM CITY JAILER 08/27/2020 10:26 AM CITY JAILER Narrative [facility] ([place]) - 08/27/2020 11:33 AM CITY JAILER fasting us Wesley Em MD LAB BLOOD ORDERABLES Final Res ult [facility] ([place]) 1 [facility] [place] [address] * (ABNORMAL) Urinalysis reflex to microscopic and culture Urine, clean voided (08/27/2020 9:56 AM CITY JAILER) Color, ur Yellow Yellow [facility] ([place]) [...] ([place]) Urine, clean voided 08/27/2020 9:56 AM CITY JAILER 08/27/2020 11:06 AM CITY JAILER Narrative [facility] ([place]) - 08/27/2020 11:15 AM CITY JAILER fasting Urine pH is affected by diet, medications, systemic acid-base disturbances, and renal tubular function. ??pH may affect urinary stone formation. ??For example, urine pH below 6.0 may help reduce the tendency for calcium phosphate stones and pH greater than 6.0 may reduce the tendency for uric acid stone formation. Source: [employer]. Last revised 07-13-2017 us Wesley Em MD LAB MICROBIOLOGY - GENERAL ORD ERABLES Final Result [facility]MICHAEL ([place]) 1 [facility] [place] [address] * (ABNORMAL) Comprehensive metabolic panel (08/27/2020 9:56 AM CITY JAILER) Sodium 140 135 - 145 mmol/L CERNER [...] pecimen Blood specimen (specimen) 08/27/2020 9:56 AM CITY JAILER 08/27/2020 10:26 AM CITY JAILER Narrative [facility] ([place]) - 08/27/2020 11:32 AM CITY JAILER fasting us Wesley Em MD LAB BLOOD ORDERABLES Final Res ult [facility] ([place]) 1 [facility] [place] [address] * (ABNORMAL) CBC with auto differential (08/27/2020 9:56 AM CITY JAILER) WBC 6.8 3.8 - 9.9 K/cumm CERNER [...] ([place]) Blood specimen (specimen) 08/27/2020 9:56 AM CITY JAILER 08/27/2020 10:26 AM CITY JAILER Narrative [facility] ([place]) - 08/27/2020 10:30 AM CITY JAILER fasting us Wesley Em MD LAB BLOOD ORDERABLES Final Res ult Performing Organization Address City/[facility]/ZIP Co de Phone Number RUBENS CARMICHAEL ([place]) 1 [facility] [address] * PSA diagnostic (08/27/2020 9:56 AM CITY JAILER) PSA-Total 1.92 <=6.20 ng/mL [facility] CARMICHAEL ([place]) Comment: Interpretive Data ?AGE ? SEX ?REFERENCE INTERVAL 0 minutes-150 years ?Female ?None 0 minutes-49 years ? Male ?None ? 50-59 years ? Male ?0-3.90 ? 60-69 years ? Male ?0-5.40 ? 70-79 years ? Male ?0-6.20 ? 80-150 years ?Male ?0-6.20 Current interpretive data last revised 2018. Testing performed by: [facility], [address] [place] [address]., [id number] Blood specimen (specimen) 08/27/2020 9:56 AM CITY JAILER 08/27/2020 2:04 PM CITY JAILER Narrative [facility] CARMICHAEL ([place]) - 08/27/2020 2:53 PM CITY JAILER fasting us Wesley Em MD LAB BLOOD ORDERABLES Final Res ult Performing Organization Address [facility]/ZIP Co de Phone Number RUBENS CARMICHAEL ([place]) 1 [facility] [place] [address] documented in this encounter Visit Diagnoses Diagnosis Screening PSA (prostate specific antigen) Special screening for malignant neoplasm of prostate Benign prostatic hyperplasia, unspecified whether lower urinary tract symptoms present Essential hypertension Unspecified essential hypertension Mixed hyperlipidemia Type 2 diabetes mellitus with hyperlipidemia (HCC) documented in this encounter Care Teams Rn Oncology Research Relationship Specialty Start Date End Date Wesley Em MD PCP - General 09/30/16 12/01/21 Trey Pinedo MD [address] [facility] [facility] [place] [address] [address] Consulting Physician Neurology 05/09/19 documented as of this encounter
--- OUTSIDE RECORDS SUMMARY | 2024-06-18 19:15 | XMS_ITS | Encounter Summary ---
Author Organization [facility] Medical Group Address [address] [place] [address] Care Team Providers Care Organizational Effectiveness Consultant Name Role Phone Wesley Em MD Primary Care Provider [phone] Trey Pinedo MD Unavailable [phone] Encounter Details Date Type Department Care Team (Late st Contact Info) Description 10/25/2019 Telephone [place] [facility] 2 [facility] [address] [place] [address] Wesley Em MD [address] [place] [address] [address] [place] [address] Social History Tobacco Use Types Packs/Day Years [...] file 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
--- OUTSIDE RECORDS SUMMARY | 2024-06-18 19:15 | XMS_ITS | Encounter Summary ---
Author Organization [facility] Medical Group Address [address] [facility] [address] [place] [address] Care Team Providers Care Land Title Examiner Name Role Phone Wesley Em MD Primary Care Provider [phone] Trey Pinedo MD Unavailable [phone] Encounter Details Date Type Department Care Team (Late st Contact Info) Description 10/25/2019 Telephone [facility] 2 [facility] [address] [place] [address] Wesley Em MD [address] [place] [address] [address] [place] [address] Social History Tobacco Use Types Packs/Day Years [...] file Legal Sex Male 6:00 PM MEDICAL INTERN Gender Identity Not on file Sexual [...] on filedocumented in this encounter Care Teams Land Title Examiner Relationship Specialty Start Date End Date Wesley Em MD PCP - General 09/30/16 12/01/21 Trey Pinedo MD 4 [facility] [address] [facility] [place] [address] Consulting Physician Neurology 05/09/19 documented as of this encounter
--- OUTSIDE RECORDS SUMMARY | 2024-06-18 19:15 | XMS_ITS | Encounter Summary ---
Author Organization [facility] Healthcare Address [address] [place] [address] Care Team Providers Care High Speed Operator Name Role Phone Wesley Em MD Primary Care Provider [phone] Trey Pinedo MD Unavailable Encounter Details Date Type Department Care Team (Late st Contact Info) Description 10/25/2019 5:00 PM CDT Lab [address] [address] Screening for prostate cancer Social History Tobacco Use Types Packs/Day Years Used Date Smoking Tobacco: Former Cigarettes 0.1 50 1 699 - 2008 Smokeless Tobacco: Never Alcohol Use Standard Drinks/Week Comments No 0 (1 standard drink = 0.6 oz pur e alcohol) PHQ-2 Answer Date Recorded PHQ-2 Score 0 02/22/2019 Sex and Gender Information Value Date Recorded Sex Assigned at Not on file 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
--- OUTSIDE RECORDS SUMMARY | 2024-06-18 19:15 | XMS_ITS | Encounter Summary ---
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
--- OUTSIDE RECORDS SUMMARY | 2024-06-18 19:15 | XMS_ITS | Encounter Summary ---
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
--- OUTSIDE RECORDS SUMMARY | 2024-06-18 19:16 | XMS_ITS | Encounter Summary ---
Author Organization [facility] Medical Group Address [address] [facility] [address] [place] [address] Care Team Providers Care Sales Negotiator Name Role Phone Wesley Em MD Primary Care Provider [phone] Trey Pinedo MD Unavailable [phone] Reason for Visit * Reason Onset Date Comments Appointment 05/10/2019 erik Encounter Details Date Type Department Care Team (Late st Contact Info) Description 05/10/2019 Telephone [facility] 2 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 No PCP availability within 7-10 days. Please contact pt directly for scheduling erik. Thank You Starla Martinez [facility] Medical Group ACO [phone] Y MANAGER documented in this encounter Plan of Treatment Not on file documented as of this encounter Visit Diagnoses Not on filedocumented in this encounter Care Teams Sales Negotiator Relationship Specialty Start Date End Date Wesley Em MD PCP - General 09/30/16 12/01/21 Trey Pinedo MD [address] [facility] [place] [address] Consulting Physician Neurology 05/09/19 documented as of this encounter
--- OUTSIDE RECORDS SUMMARY | 2024-06-18 19:16 | XMS_ITS | Encounter Summary ---
Author Organization [facility] Address [address] [facility] [address] [facility] [address] [place] [address] Care Team Providers Care Wool Classer Name Role Phone Wesley Em MD Primary Care Provider [phone] Trey Pinedo MD Unavailable [phone] Reason for Visit * Reason Comments Hypertension f/u Encounter Details Date Type Department Care Team (Late st Contact Info) Description 09/24/2019 1:15 PM CDT Office Visit [facility] [address] [facility] [address] [place] [address] Wesley Em MD [address] [place] [address] [address] [place] [address] Essential hypertension (Primary Dx); Class 1 obesity [...] file 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
--- OUTSIDE RECORDS SUMMARY | 2024-06-18 19:16 | XMS_ITS | Encounter Summary ---
Author Organization [facility] Address [address] 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
--- OUTSIDE RECORDS SUMMARY | 2024-06-18 19:16 | XMS_ITS | Encounter Summary ---
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
--- OUTSIDE RECORDS SUMMARY | 2024-06-18 19:16 | XMS_ITS | Encounter Summary ---
Author Organization [facility] Address [address] [facility] [address] [place] [address] Care Team Providers Care Organizational Development Manager Name Role Phone Wesley Em MD Primary Care Provider [phone] Trey Pinedo MD Unavailable [phone] Reason for Visit * Reason Comments Hypertension Encounter Details Date Type Department Care Team (Late st Contact Info) Description 08/16/2019 10:15 AM CLERICAL ADMINISTRATOR Office Visit [facility] [address] [place] [address] [address] [place] [address] Clary Peters, BOOK REVIEWER [address] [address] Resistant hypertension (Primary Dx); BMI 30.0-30.9,adult; Cerebrovascular [...] file Legal Sex Male 6:00 PM CLERICAL ADMINISTRATOR Gender Identity Not on file Sexual Orientation Straight 01/23/2021 10 :16 PM CDT documented as of this encounter Last Filed Vital Signs Vital Sign Reading Time Taken Comments Blood Pressure 150/92 08/16/2019 10:11 AM CLERICAL ADMINISTRATOR PT'S BP CUFF 186/123 Pulse 74 08/16/2019 10:11 AM CLERICAL ADMINISTRATOR Temperature 36.6 ??C (97.9 ??F) 08/16/2019 1 0:11 AM CLERICAL ADMINISTRATOR Respiratory Rate 20 08/16/2019 10:1 1 AM CLERICAL ADMINISTRATOR Oxygen Saturation 97% 08/16/2019 10: 11 AM CLERICAL ADMINISTRATOR Inhaled Oxygen Concentration - - Weight 95.3 kg (210 lb) 08/16/2019 10:1 1 AM CLERICAL ADMINISTRATOR Height 177.8 cm (5' 10 ) 08/16/2019 10: 11 AM CLERICAL ADMINISTRATOR Body Mass Index 30.13 08/16/2019 10:11 AM CLERICAL ADMINISTRATOR documented in this encounter Patient Instructions * Patient Instructions* Clary Peters NP - 08/16/2019 10:15 AM CLERICAL ADMINISTRATOR Images from the original note were not included. I truly hope you received EXCELLENT care today! [place] and I are thankful you have trusted [...] feeling well! Thank you in advance, Clary ICAL ADMINISTRATOR documented in this encounter Ordered Prescriptions Prescription Sig Dispense Quantity Refills Last Filled Start Date End Date cloNIDine (CATAPRES-TTS) 0.1 mg/[address] 0.1 mg on the skin once a week for 4 doses 4 patch 1 08/16/2019 08/20/2019 documented in this encounter Progress Notes * Clary Peters NP - 08/16/2019 10:15 AM CST Images from the original note were not included. [facility] Patient ID: Villa Zuniga is [...] esophagitis, TIA. He is under care of crm marketing analyst, . Was taking clonidine prior but ???ran [...] AIM MG Decent 05/20/2020 1:00 PM US1 [facility] All past family, medical, and social [...] This note is dictated and transcribed using Organizer Fluency Direct Software. Commissioning Specialist variancesmay occur. Despite proofreading, typographical errors may occur. Cosigned by Wesley Em MD at 08/19/2019 6:54 AM CLERICAL ADMINISTRATOR ICAL ADMINISTRATOR ICAL ADMINISTRATOR documented in this encounter Miscellaneous Notes * Assessment & Plan Note - Clary Peters NP - 08/16/2019 10:50 AM CLERICAL ADMINISTRATOR Associated Problem(s): Cerebrovascular arteriosclerosis Uncontrolled HTN certainly a concern given hx of TIA, CAD. Education provided to him and of importance in HTN regimen. 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 Cont valsartan, metoprolol and adding clonidine patch back into regimen. New script written for BP machine D/T home machine inaccuracies. Sx to monitor for, report given to both him and . Repeat BMP in 1 month D/T recently starting valsartan. RTC next week as scheduled. ICAL ADMINISTRATOR documented in this encounter Plan of Treatment [...] CDT 09/16/2019 7:51 PM CDT Clary Peters BOOK REVIEWER LAB BLOOD ORDERABLES Final R esult [facility] [address] [place] [address] documented in this encounter Visit Diagnoses Diagnosis Resistant hypertension- Primary BMI 30.0-30.9,adult Cerebrovascular arteriosclerosis Cerebral atherosclerosis documented in this encounter Discontinued Medications Medication Sig Discontinue Reason Start Date End Da te cloNIDine (CATAPRES-TTS) 0.1 mg/[address] 0.1 mg on the skin once a week for 4 doses Reorder 05/15/2019 08/16/2019 documented as of this encounter Care Teams Organizational Development Manager Relationship Specialty Start Date End Date Wesley Em MD PCP - General 09/30/16 12/01/21 Trey Pinedo MD [address] [place] [address] [place] [address] Consulting Physician Neurology 05/09/19 documented as of this encounter
--- OUTSIDE RECORDS SUMMARY | 2024-06-18 19:16 | XMS_ITS | Encounter Summary ---
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
--- OUTSIDE RECORDS SUMMARY | 2024-06-18 19:16 | XMS_ITS | Encounter Summary ---
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
--- OUTSIDE RECORDS SUMMARY | 2024-06-18 19:16 | XMS_ITS | Encounter Summary ---
Author Organization [facility] Address [address] [facility] [address] [place] [address] Care Team Providers Care Composing Room Supervisor Name Role Phone Wesley Em MD Primary Care Provider [phone] Trey Pinedo MD Unavailable [phone] Encounter Details Date Type Department Care Team (Late st Contact Info) Description 09/19/2019 Orders Only [facility] [address] [facility] [address] [place] [address] Clary Peters, TOOLING ENGINEERING TECH [address] [address] Type 2 diabetes mellitus with hyperlipidemia (CMS/HCC) [...] on file Legal 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 ?? (Diabetes Care 31:[id number], 2008). ??The eAG is not equivalent to a fasting glucose. Blood specimen (specimen) 09/20/2019 9:01 AM CDT 09/20/2019 12:30 PM CDT Clary Peters TOOLING ENGINEERING TECH LAB BLOOD ORDERABLES Final R esult [facility] [address] Department [place] [address] documented in this encounter Visit Diagnoses Diagnosis Type 2 diabetes mellitus with hyperlipidemia (HCC)- Primary documented in this encounter Care Teams Composing Room Supervisor Relationship Specialty Start Date End Date Wesley Em MD PCP - General 09/30/16 12/01/21 Trey Pinedo MD [address] [place] [address] [address] [place] [address] Consulting Physician Neurology 05/09/19 documented as of this encounter
--- OUTSIDE RECORDS SUMMARY | 2024-06-18 19:16 | XMS_ITS | Encounter Summary ---
Author Organization [facility] Address [address] [facility] [facility] [address] [place] [address] Care Team Providers Care Director Of Speech Pathology Name Role Phone Wesley Em MD Primary Care Provider [phone] Trey Pinedo MD Unavailable [phone] Encounter Details Date Type Department Care Team (Late st Contact Info) Description 05/21/2019 Telephone [facility] [address] [facility] [address] [place] [address] Whitney Orellana MA Social History Tobacco Use Types Packs/Day Years Used Date Smoking Tobacco: Former Cigarettes 0.1 50 1 649 - 2009 Smokeless Tobacco: Never Alcohol Use Standard Drinks/Week Comments No 0 (1 standard drink = 0.6 oz pur e alcohol) PHQ-2 Answer Date Recorded PHQ-2 Score 0 02/22/2019 Sex and Gender Information Value Date Recorded Sex Assigned at Not on file Legal Sex Male 6:00 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 IC IMPROVEMENT INSPECTOR * Telephone Encounter - Whitney Orellana MA - 05/21/2019 11:30 AM CST [email or web address] IC IMPROVEMENT INSPECTOR * Telephone Encounter - Whitney Orellana MA - 05/21/2019 11:30 AM CST ----- Message from Clary Peters NP sent at 05/21/2019 7:57 AM PUBLIC IMPROVEMENT INSPECTOR ----- Please call Villa letting him know his RBC count is gradually reducing back to his NL. Thank you IC IMPROVEMENT INSPECTOR documented in this encounter Plan of Treatment Not on file documented as of this encounter Visit Diagnoses Not on filedocumented in this encounter Care Teams Director Of Speech Pathology Relationship Specialty Start Date End Date Wesley Em MD PCP - General 09/30/16 12/01/21 Trey Pinedo MD [address] [place] [address] [address] [facility] [place] [address] Consulting Physician Neurology 05/09/19 documented as of this encounter
--- OUTSIDE RECORDS SUMMARY | 2024-06-18 19:16 | XMS_ITS | Encounter Summary ---
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
--- OUTSIDE RECORDS SUMMARY | 2024-06-18 19:16 | XMS_ITS | Encounter Summary ---
Author Organization 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
--- OUTSIDE RECORDS SUMMARY | 2024-06-18 19:16 | XMS_ITS | Encounter Summary ---
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
--- OUTSIDE RECORDS SUMMARY | 2024-06-18 19:16 | XMS_ITS | Encounter Summary ---
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
--- OUTSIDE RECORDS SUMMARY | 2024-06-18 19:16 | XMS_ITS | Encounter Summary ---
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
--- OUTSIDE RECORDS SUMMARY | 2024-06-18 19:16 | XMS_ITS | Encounter Summary ---
Author Organization [facility] Address [address] [place] [address] Care Team Providers Care Academic Vice President Name Role Phone Wesley Em MD Primary Care Provider [phone] Trey Pinedo MD Unavailable [phone] Encounter Details Date Type Department Care Team (Late st Contact Info) Description 09/18/2019 Telephone [facility] [address] 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
--- OUTSIDE RECORDS SUMMARY | 2024-06-18 19:16 | XMS_ITS | Encounter Summary ---
Author Organization [facility] Address [address] [place] [address] Care Team Providers Care Oyster Culler Name Role Phone Wesley Em MD Primary Care Provider [phone] Trey Pinedo MD Unavailable [phone] Encounter Details Date Type Department Care Team (Late st Contact Info) Description 09/16/2019 7:50 PM CDT Lab [address] [address] Resistant hypertension Social History Tobacco Use Types Packs/Day Years Used Date Smoking Tobacco: Former Cigarettes 0.1 50 1 289 - 2009 Smokeless Tobacco: Never Alcohol Use Standard Drinks/Week Comments No 0 (1 standard drink = 0.6 oz pur e alcohol) PHQ-2 Answer Date Recorded PHQ-2 Score 0 02/22/2019 Sex and Gender Information Value Date Recorded Sex Assigned at Not on file 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 No / Unsure 09/16/2019 9:06 AM CDT documented as of this encounter Miscellaneous Notes * Result Encounter Note - Clary Peters, INSTRUCTIONAL DESIGN SPECIALIST - 09/18/2019 11:02 AM CDT Please call [...] ??mL/min/1.73m2 *Relative to young adult level If -Jordanian multiply value by 1.16. Estimated glomerular filtration [...] CDT 09/16/2019 8:03 PM CDT Clary Peters INSTRUCTIONAL DESIGN SPECIALIST LAB BLOOD ORDERABLES Final R esult Performing Organization Address [facility]/ZIP Co nd Phone Number [phone] [place] [address] * Comprehensive metabolic panel (09/16/2019 [...] CDT 09/16/2019 7:51 PM CDT Clary Peters INSTRUCTIONAL DESIGN SPECIALIST LAB BLOOD ORDERABLES Final R esult [facility] [address] [place] [address] documented in this encounter Visit Diagnoses Diagnosis Resistant hypertension documented in this encounter Care Teams Oyster Culler Relationship Specialty Start Date End Date Wesley Em MD PCP - General 09/30/16 12/01/21 Trey Pinedo MD [address] [place] [address] [address] [facility] [place] [address] Consulting Physician Neurology 05/09/19 documented as of this encounter
--- OUTSIDE RECORDS SUMMARY | 2024-06-18 19:16 | XMS_ITS | Encounter Summary ---
Author Organization [facility] Healthcare Address [address] [place] [address] Care Team Providers Care Corporate Real Estate Manager Name Role Phone Wesley Em MD Primary Care Provider [phone] Trey Pinedo MD Unavailable [phone] Encounter Details Date Type Department Care Team (Late st Contact Info) Description 05/20/2019 4:50 PM HAND GLASS CUTTER Lab [address] [address] Erythrocytosis Social History Tobacco Use Types Packs/Day [...] file Legal Sex Male 6:00 PM HAND GLASS CUTTER Gender Identity Not on file Sexual Orientation Straight 01/23/2021 10 :16 PM CDT documented as of this encounter Progress Notes * Clary Peters NP - 05/20/2019 4:50 PM CST Please call Villa letting him know his RBC count is gradually reducing back to his NL. Thank you GLASS CUTTER documented in this encounter Plan of Treatment Not on file documented as of this encounter Procedures Procedure Name Priority Date/Time Associated Diagnosis Comments DIFFERENTIAL AUTO Routine 05/20/2019 10: 33 AM HAND GLASS CUTTER Erythrocytosis IRON PROFILE W/ IBC Routine 05/20/2019 1 0:33 AM HAND GLASS CUTTER Erythrocytosis CBC WITH AUTO DIFFERENTIAL Routine 05/20/2019 10:33 AM HAND GLASS CUTTER Erythrocytosis documented in this encounter Results * Differential, auto (05/20/2019 10:33 AM HAND GLASS CUTTER) Neutrophil abs 5.1 1.7 - 6.5 K/cumm [facility] Imm gran abs 0.0 0.0 - 0.1 K/cumm [facility] Lymphocyte abs 1.1 0.8 - 3.3 K/cumm [facility] Monocyte abs 0.7 0.2 - 0.8 K/cumm [facility] Eosinophil abs 0.2 0.0 - 0.5 K/cumm [facility] Basophil abs 0.1 0.0 - 0.1 K[facility]cumm [facility] Neutrophil pct 70.1 % [facility] Comment: Interpretive Data Percent cell count reference ranges are not reported, since discordance with absolute values may lead to misinterpretation of CBC data. Current Interpretive Data was last revised on 2017. Imm gran pct 0.4 % [facility] Comment: Interpretive Data Percent cell [...] revised on 2017. Eosinophil pct 3.2 % [facility] Comment: Interpretive Data Percent cell [...] 2017. Blood specimen (specimen) 05/20/2019 10:33 AM HAND GLASS CUTTER 05/20/2019 4:52 PM HAND GLASS CUTTER Clary Peters CDL A DRIVER LAB BLOOD ORDERABLES Final R esult Performing Organization Address City/[facility]/ZIP Co de Phone Number [facility] [place] [address] [place] [address] * (ABNORMAL) CBC with auto differential (05/20/2019 10:33 AM HAND GLASS CUTTER) WBC 7.3 3.8 - 9.9 K/cumm [facility] Hgb 18.9(H) 13.0 - 17.5 g/dL [facility] [...] RDW SD 45.2 35.7 - 48.1 fL [facility] NRBC abs 0.00 0.00 - 0.01 K/cumm [facility] Blood specimen (specimen) 05/20/2019 10:33 AM HAND GLASS CUTTER 05/20/2019 4:52 PM HAND GLASS CUTTER Clary Peters NP LAB BLOOD ORDERABLES Final R esult Performing Organization Address City/[facility]/ZIP Co de Phone Number [facility] [place] [address] Department of Laboratories [place] [phone] * (ABNORMAL) Iron profile w/ IBC (05/20/2019 10:33 AM HAND GLASS CUTTER) Iron 159(H) 50 - 150 mcg/dl [facility] TIBC 246(L) 250 - 400 mcg/dL [facility] Transferrin saturation 65(H) 20 - 50 % [facility] Blood specimen (specimen) 05/20/2019 10:33 AM HAND GLASS CUTTER 05/20/2019 4:52 PM HAND GLASS CUTTER Clary Peters CDL A DRIVER LAB BLOOD ORDERABLES Final R esult [facility] [address] [place] [address] documented in this encounter Visit Diagnoses Diagnosis Erythrocytosis Polycythemia, secondary documented in this encounter Care Teams Corporate Real Estate Manager Relationship Specialty Start Date End Date Wesley Em MD PCP - General 09/30/16 12/01/21 Trey Pinedo MD [address] [facility] [place] [address] Consulting Physician Neurology 05/09/19 documented as of this encounter
--- OUTSIDE RECORDS SUMMARY | 2024-06-18 19:16 | XMS_ITS | Encounter Summary ---
Author Organization [facility] Medical Group Address [address] [place] [address] Care Team Providers Care Beader Tender Name Role Phone Wesley Em MD Primary Care Provider [phone] Trey Pinedo MD Unavailable [phone] Encounter Details Date Type Department Care Team (Late st Contact Info) Description 05/20/2019 11:00 AM YARD INSPECTOR Lab [facility] [address] [place] [address] [address] [place] [address] Erythrocytosis Social History Tobacco Use [...] on file Legal Sex Male 6:00 PM YARD INSPECTOR Gender Identity Not on file Sexual Orientation Straight 01/23/2021 10 :16 PM CDT documented as of this encounter Plan of Treatment Not on file documented as of this encounter Visit Diagnoses Diagnosis Erythrocytosis Polycythemia, secondary documented in this encounter Care Teams Beader Tender Relationship Specialty Start Date End Date Wesley Em MD PCP - General 09/30/16 12/01/21 Trey Pinedo MD [address] [facility] [address] [facility] [place] [address] Consulting Physician Neurology 05/09/19 documented as of this encounter
--- OUTSIDE RECORDS SUMMARY | 2024-06-18 19:16 | XMS_ITS | Encounter Summary ---
Author Organization [facility] Medical Group Address [address] [facility] [address] [place] [address] Care Team Providers Care Career Consultant Name Role Phone Wesley Em MD Primary Care Provider [phone] Trey Pinedo MD Unavailable [phone] Reason for Visit * Reason Comments Hypertension 1 week f/u Encounter Details Date Type Department Care Team (Late st Contact Info) Description 08/20/2019 1:15 PM DECORATOR INSPECTOR Office Visit [facility] [address] [facility] [address] [place] [address] Wesley Em MD [address] [place] [address] [address] [place] [address] Essential hypertension (Primary Dx); Body mass index [...] on file Legal Sex Male 6:00 PM DECORATOR INSPECTOR Gender Identity Not on file Sexual Orientation Straight 01/23/2021 10 :16 PM CDT documented as of this encounter Last Filed Vital Signs Vital Sign Reading Time Taken Comments Blood Pressure 148/78 08/20/2019 1:21 PM DECORATOR INSPECTOR Pulse 60 08/20/2019 1:21 PM DECORATOR INSPECTOR Temperature - - Respiratory Rate 20 08/20/2019 1:21 PM DECORATOR INSPECTOR Oxygen Saturation - - Inhaled Oxygen Concentration - - Weight 94.8 kg (209 lb) 08/20/2019 1:21 PM DECORATOR INSPECTOR Height 177.8 cm (5' 10 ) 08/20/2019 1:21 PM DECORATOR INSPECTOR Body Mass Index 29.99 08/20/2019 1:21 PM DECORATOR INSPECTOR documented in this encounter Ordered Prescriptions Prescription [...] in agreement with the plan of care. RATOR INSPECTOR RATOR INSPECTOR documented in this encounter Plan of [...] documented as of this encounter Care Teams Career Consultant Relationship Specialty Start Date End Date Wesley Em MD PCP - General 09/30/16 12/01/21 Trey Pinedo MD [address] [facility] [address] [facility] [place] [address] Consulting Physician Neurology 05/09/19 documented as of this encounter
--- OUTSIDE RECORDS SUMMARY | 2024-06-18 19:16 | XMS_ITS | Encounter Summary ---
Author Organization [facility] Facility Care Team Providers Care Fabricating Machine Operator Name Role Phone Wesley Em MD Primary Care Provider [phone] Trey Pinedo MD Unavailable [phone] Encounter Details Date Type Department Care Team [...] on file Legal Sex Male 6:00 PM LAST PULLER Gender Identity Not on file Sexual [...] on filedocumented in this encounter Care Teams Fabricating Machine Operator Relationship Specialty Start Date End Date Wesley Em MD PCP - General 09/30/16 12/01/21 Trey Pinedo MD [address] [facility] [address] [place] [address] Consulting Physician Neurology 05/09/19 documented as of this encounter
--- OUTSIDE RECORDS SUMMARY | 2024-06-18 19:16 | XMS_ITS | Encounter Summary ---
Author Organization [facility] Medical Group Address [address] [facility] [address] [place] [address] Care Team Providers Care Guitar Technician Name Role Phone Wesley Em MD Primary Care Provider [phone] Trey Pinedo MD Unavailable [phone] Reason for Visit * Reason Comments Hospital Follow Up Encounter Details Date Type Department Care Team (Late st Contact Info) Description 05/20/2019 9:30 AM PROP MAKING SUPERVISOR Office Visit [facility] [address] [facility] [address] [place] [address] Clary Neil, WELDER PRODUCTION LINE ARC [address] [address] [address] History of recent hospitalization (Primary Dx); BMI 28.0-28.9,adult; TIA (transient ischemic attack); Coronary artery disease involving [place] coronary artery of [place] heart without angina pectoris; Chronic GERD; Essential [...] on file Legal Sex Male 6:00 PM PROP MAKING SUPERVISOR Gender Identity Not on file Sexual Orientation Straight 01/23/2021 10 :16 PM CDT documented as of this encounter Last Filed Vital Signs Vital Sign Reading Time Taken Comments Blood Pressure 130/70 05/20/2019 9:23 AM PROP MAKING SUPERVISOR Pulse 68 05/20/2019 9:23 AM PROP MAKING SUPERVISOR Temperature 36.6 ??C (97.9 ??F) 05/20/2019 9:23 AM CS T Respiratory Rate 16 05/20/2019 9:23 AM PROP MAKING SUPERVISOR Oxygen Saturation - - Inhaled Oxygen Concentration - - Weight 90.7 kg (200 lb) 05/20/2019 9:23 AM PROP MAKING SUPERVISOR Height 177.8 cm (5' 10 ) 05/20/2019 9:23 AM PROP MAKING SUPERVISOR Body Mass Index 28.7 05/20/2019 9:23 AM PROP MAKING SUPERVISOR documented in this encounter Ordered Prescriptions Prescription Sig Dispense Quantity Refills Last Filled Start Date End Date atorvastatin (LIPITOR) 80 mg tablet Take 1 tablet (80 mg total) by mouth daily REPLACES PRIOR PRESCRIBED ATORVASTATIN 40MG 30 tablet 5 05/20/2019 9 documented in this encounter Progress Notes * Clary Neil, WELDER PRODUCTION LINE ARC - 05/20/2019 9:30 AM CST Images from the original note were not included. [facility] Patient ID: Villa Zuniga is a 73 y.o. male Chief Complaint. Chief Complaint Patient presents with ??? Hospital Follow Up HPI: Villa Zuniga presents today for a transition of care visit after having been hospitalized for a TIA at [facility] on 05/07/2019 to 05/09/2019. Prior to [...] or BOGGS. He is under care of provider relations manager, , seeing them every 3 months. No [...] steppingdown from Plavix only if recommended by provider relations manager, increasing atorvastatin 80 mg daily. Orders: - Lipid panel; Future Coronary artery disease involving [place] coronary artery of [place] heart without angina pectoris Assessment & Plan: [...] This note is dictated and transcribed using [employer] Direct Software. Tie Inspector variancesmay occur. Despite proofreading, typographical errors may occur. Cosigned by Wesley Em MD at 05/20/2019 10:45 AM PROP MAKING SUPERVISOR MAKING SUPERVISOR MAKING SUPERVISOR documented in this encounter Miscellaneous Notes * Assessment & Plan Note - Clary Neil NP - 05/20/2019 10:21 AM PROP MAKING SUPERVISOR Associated Problem(s): Chronic GERD Stable. Cnt. Current Nexium dosing. MAKING SUPERVISOR * Assessment & Plan Note - Clary Neil NP - 05/20/2019 10:21 AM PROP MAKING SUPERVISOR Associated Problem(s): Essential hypertension Much improved with clonidine patch. Pt was encouraged to Cnt. To wear this patch daily, Cnt. Prior prescribed metoprolol heart healthy diet. I did encourage him to purchase some machine at home and monitor blood pressure readings. RTC in 3 months for repeat blood pressure check or sooner as needed. MAKING SUPERVISOR * Assessment & Plan Note - Clary Neil NP - 05/20/2019 10:20 AM PROP MAKING SUPERVISOR Associated Problem(s): TIA (transient ischemic attack) Chads Vasc score 3/9 with recent TIA, imaging all negative for acute stroke. Hx of CVD, CVA, CAD does recommending Pt to Cnt. Dual anti-platelet therapy for at least 3 months or can consider steppingdown from Plavix only if recommended by provider relations manager, increasing atorvastatin 80 mg daily. MAKING SUPERVISOR * Assessment & Plan Note - Clary Neil NP - 05/20/2019 10:19 AM PROP MAKING SUPERVISOR Associated Problem(s): Hyperlipidemia Increase Lipitor to 80 mg a day for mention. S/Es to report office discussed given increase. RepeatFLP, CMP/liver function in 3 months. MAKING SUPERVISOR * Assessment & Plan Note - Clary Neil NP - 05/20/2019 10:17 AM PROP MAKING SUPERVISOR Associated Problem(s): Coronary artery disease involving [place] coronary artery of [place] heart without angina pectoris Hx of CAD with stents, HLD, arteriosclerosis noted recent CT imaging. Increasing Lipitor to 80 mg aday for improved HLD control, future CBD protection. Cnt. Dual anti-platelet therapy, metoprolol, clonidine patch, heart healthy diet, F/U Cardiology as scheduled. MAKING SUPERVISOR * Assessment & Plan Note - Clary Neil NP - 05/20/2019 10:16 AM PROP MAKING SUPERVISOR Associated Problem(s): Cerebrovascular arteriosclerosis CT imaging detailed above demonstrating cerebrovascular arteriosclerosis in 2017 and again during recent hospitalization. Given TIA, Hx of CAD, recommending increase Lipitor to 80 mg daily, Cnt. Aspirin and Plavix for dual anti-platelet therapy, repeat venous duplex in 1 year. MAKING SUPERVISOR * Assessment & Plan Note - Clary Neil NP - 05/20/2019 10:16 AM PROP MAKING SUPERVISOR Associated Problem(s): Benign prostatic hyperplasia with lower urinary tract symptoms Asymptomatic and stable medication. Cnt. Proscar, Flomax. 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 Next EGD scheduled for 2020. Cnt. Nexium therapy prior advised. MAKING SUPERVISOR * Assessment & Plan Note - Clary Neil NP - 05/20/2019 10:09 AM PROP MAKING SUPERVISOR Associated Problem(s): History of recent hospitalization (Resolved 05/20/2019) Recent hospitalization records reviewed with labs and diagnostics all detailed above MAKING SUPERVISOR * Addendum Note - Clary Neil NP - 05/20/2019 9:30 AM CSTAddended by: CLARY NEIL on: 05/20/2019 11:06 AM Modules accepted: Level of Service MAKING SUPERVISOR documented in this encounter Plan of [...] CDT 10/18/2019 5:27 PM CDT Clary Neil WELDER PRODUCTION LINE ARC LAB BLOOD ORDERABLES Final R esult [facility] [address] Department of Laboratories [place] [id number] * (ABNORMAL) Lipid panel (10/18/2019 9:04 AM [...] CDT 10/18/2019 5:27 PM CDT Clary Neil WELDER PRODUCTION LINE ARC LAB BLOOD ORDERABLES Final [facility] [address] [place] [address] * (ABNORMAL) Iron profile w/ IBC (05/20/2019 10:33 AM PROP MAKING SUPERVISOR) Iron 159(H) 50 - 150 mcg/dl [facility] TIBC 246(L) 250 - 400 mcg/dL [facility] Transferrin saturation 65(H) 20 - 50 % [facility] Blood specimen (specimen) 05/20/2019 10:33 AM PROP MAKING SUPERVISOR 05/20/2019 4:52 PM PROP MAKING SUPERVISOR Clary Neil WELDER PRODUCTION LINE ARC LAB BLOOD ORDERABLES Final R esult [facility] [address] [place] [address] * (ABNORMAL) CBC with auto differential (05/20/2019 10:33 AM PROP MAKING SUPERVISOR) WBC 7.3 3.8 - 9.9 K/cumm [facility] Hgb 18.9(H) 13.0 - 17.5 g/dL [facility] Hct 55.6(H) 38.9 - 50.3 % [facility] Plt 158 150 - 400 K/cumm [facility] MPV 10.8 9.1 - 12.3 fL [facility] RBC 5.71 4.30 - 5.80 M/cumm [facility] MCV 97.4(H) 81.3 - 96.4 fL [facility] MCH 33.1 27.1 - 33.3 pg [facility] MCHC 34.0 32.3 - 35.7 g/dL [facility] RDW CV 12.7 11.1 - 14.9 % [facility] RDW SD 45.2 35.7 - 48.1 fL [facility] NRBC abs 0.00 0.00 - 0.01 K/cumm [facility] Blood specimen (specimen) 05/20/2019 10:33 AM PROP MAKING SUPERVISOR 05/20/2019 4:52 PM PROP MAKING SUPERVISOR Clary Neil WELDER PRODUCTION LINE ARC LAB BLOOD ORDERABLES Final R esult [facility] [address] [place] [address] documented in this encounter Visit Diagnoses Diagnosis History of recent hospitalization- Primary BMI 28.0-28.9,adult TIA (transient ischemic attack) Unspecified transient cerebral ischemia Coronary artery disease involving [place] coronary artery of [place] heart without angina pectoris Chronic GERD Essential [...] documented as of this encounter Care Teams Guitar Technician Relationship Specialty Start Date End Date Wesley Em MD PCP - General 09/30/16 12/01/21 Trey Pinedo MD [address] [facility] [place] [address] Consulting Physician Neurology 05/09/19 documented as of this encounter
--- OUTSIDE RECORDS SUMMARY | 2024-06-18 19:16 | XMS_ITS | Encounter Summary ---
Author Organization [facility] Medical Group Address [address] [place] [address] Care Team Providers Care Industrial Roofer Name Role Phone Wesley Em MD Primary Care Provider [phone] Trey Pinedo MD Unavailable [phone] Encounter Details Date Type Department Care Team (Late st Contact Info) Description 08/16/2019 Telephone [facility] [address] [facility] [address] [place] [address] Wesley Em MD [address] [place] [address] [address] [place] [address] Social History Tobacco Use Types Packs/Day Years Used Date Smoking Tobacco: Former Cigarettes 0.1 50 1 639 - 2009 Smokeless Tobacco: Never Alcohol Use Standard Drinks/Week Comments No 0 (1 standard drink = 0.6 oz pur e alcohol) PHQ-2 Answer Date Recorded PHQ-2 Score 0 02/22/2019 Sex and Gender Information Value Date Recorded Sex Assigned at Not on file Legal Sex Male 6:00 PM INSTRUCTIONAL DESIGN 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 Gender Identity Not on file Sexual Orientation Straight 01/23/2021 10 :16 PM CDT documented as of this encounter Miscellaneous Notes * Telephone Encounter - Martha Sutton MA - 08/16/2019 3:03 PM INSTRUCTIONAL DESIGN 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 Spoke with patients pharmacy [facility] in [place], they said not covered by Medicare but they willhelp patient find a machine that will meet their needs, Patients Summer on HIPAA aware RUCTIONAL DESIGN 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 * Telephone Encounter - Dayanara Stoll - 08/16/2019 2:42 PM CST Clary - Pt's is here and needs to know what type of blood pressure machine they should get forMr. Tendick? They've been to several different pharmacies and asked for help but were told to checkw/you as to what you want him to have. Please advise. RUCTIONAL DESIGN 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 documented in this encounter Plan of Treatment Not on file documented as of this encounter Visit Diagnoses Not on filedocumented in this encounter Care Teams Industrial Roofer Relationship Specialty Start Date End Date Wesley Em MD PCP - General 09/30/16 12/01/21 Trey Pinedo MD [address] [facility] [place] [address] Consulting Physician Neurology 05/09/19 documented as of this encounter
--- OUTSIDE RECORDS SUMMARY | 2024-06-18 19:16 | XMS_ITS | Encounter Summary ---
Author Organization [facility] Medical Group Address [address] [place] [address] Care Team Providers Care Fire Warden Name Role Phone Wesley Em MD Primary Care Provider [phone] Trey Pinedo MD Unavailable [phone] Encounter Details Date Type Department Care Team (Late st Contact Info) Description 09/16/2019 9:30 AM CDT Lab [facility] [address] [place] [address] [address] [place] [address] Essential hypertension Social History Tobacco Use Types [...] on file Legal Sex Male 6:00 PM FISHING LINE WINDING MACHINE OPERATOR Gender Identity Not on file [...] hypertension documented in this encounter Care Teams Fire Warden Relationship Specialty Start Date End Date Wesley Em MD PCP - General 09/30/16 12/01/21 Trey Pinedo MD [address] [place] [address] [address] [place] [address] Consulting Physician Neurology 05/09/19 documented as of this encounter
--- OUTSIDE RECORDS SUMMARY | 2024-06-18 19:16 | XMS_ITS | Encounter Summary ---
Author Organization [facility] Medical Group Address [address] [place] [address] Care Team Providers Care Neighborhood Coordinator Name Role Phone Wesley Em MD Primary Care Provider [phone] Trey Pinedo MD Unavailable [phone] Encounter Details Date Type Department Care Team (Late st Contact Info) Description 09/16/2019 Telephone [facility] [address] [facility] [address] [place] [address] Wesley Em MD [address] [place] [address] [address] [place] [address] Social History Tobacco Use Types Packs/Day Years Used Date Smoking Tobacco: Former Cigarettes 0.1 50 1 549 - 2009 Smokeless Tobacco: Never Alcohol Use Standard Drinks/Week Comments No 0 (1 standard drink = 0.6 oz pur e alcohol) PHQ-2 Answer Date Recorded PHQ-2 Score 0 02/22/2019 Sex and Gender Information Value Date Recorded Sex Assigned at Not on file Legal Sex Male 6:00 PM COMMAND POST CRAFTSMAN Gender Identity Not on file Sexual Orientation [...] with more readings. * Telephone Encounter - Teresita Moses MA - 09/16/2019 9:43 AM CDT Patient came in to office today for a BP check and it was 154/78 JR out BM please advise documented in this encounter Plan of Treatment Not on file documented as of this encounter Visit Diagnoses Not on filedocumented in this encounter Care Teams Neighborhood Coordinator Relationship Specialty Start Date End Date Wesley Em MD PCP - General 09/30/16 12/01/21 Trey Pinedo MD [address] [place] [address] [place] [address] Consulting Physician Neurology 05/09/19 documented as of this encounter
--- OUTSIDE RECORDS SUMMARY | 2024-06-18 19:16 | XMS_ITS | Encounter Summary ---
Author Organization [facility] Medical Group Address [address] [place] [address] Care Team Providers Care Inspector Canvas Products Name Role Phone Wesley Em MD Primary Care Provider [phone] Trey Pinedo MD Unavailable [phone] Encounter Details Date Type Department Care Team (Late st Contact Info) Description 08/15/2019 Telephone [facility] 2 [facility] [address] [place] [address] Wesley Em MD [address] [place] [address] Social History Tobacco Use Types Packs/Day Years Used Date Smoking Tobacco: Former Cigarettes 0.1 50 1 389 - 2009 Smokeless Tobacco: Never Alcohol Use Standard Drinks/Week Comments No 0 (1 standard drink = 0.6 oz pur e alcohol) PHQ-2 Answer Date Recorded PHQ-2 Score 0 02/22/2019 Sex and Gender Information Value Date Recorded Sex Assigned at Not on file Legal Sex Male 6:00 PM BRIDGE MAINTENANCE WORKER Gender Identity Not on file Sexual Orientation Straight 01/23/2021 10 :16 PM CDT documented as of this encounter Miscellaneous Notes * Telephone Encounter - Martha Sutton MA - 08/15/2019 3:01 PM BRIDGE MAINTENANCE WORKER patient aware appt made for 08/16/19 with Graham GE MAINTENANCE WORKER * Telephone Encounter - Wesley Em MD - 08/15/2019 2:24 PM CST Have the patient take the valsartan 40 mg twice daily long with the metoprolol 25 twice daily see vacuum frame operator tomorrow to check blood pressure GE MAINTENANCE WORKER * Telephone Encounter - Delmi Cooper - 08/15/2019 1:39 PM CST please advise GE MAINTENANCE WORKER * Telephone Encounter - Sepideh Roberts - [...] see him today or sooner? Please advise. GE MAINTENANCE WORKER documented in this encounter Plan of Treatment Not on file documented as of this encounter Visit Diagnoses Not on filedocumented in this encounter Care Teams Inspector Canvas Products Relationship Specialty Start Date End Date Wesley Em MD PCP - General 09/30/16 12/01/21 Trey Pinedo MD [address] [place] [address] [place] [address] Consulting Physician Neurology 05/09/19 documented as of this encounter
--- OUTSIDE RECORDS SUMMARY | 2024-06-18 19:16 | XMS_ITS | Encounter Summary ---
Author Organization [facility] Facility Care Team Providers Care Hunting Sales Leader Name Role Phone Wesley Em MD Primary Care Provider [phone] Trey Pinedo MD Unavailable [phone] Encounter Details Date Type Department Care Team [...] file Legal Sex Male 6:00 PM STUDENT MINISTRY PASTOR Gender Identity Not on file Sexual Orientation Straight 01/23/2021 10 :16 PM CDT documented as of this encounter Plan of Treatment Not on file documented as of this encounter Visit Diagnoses Not on filedocumented in this encounter Care Teams Hunting Sales Leader Relationship Specialty Start Date End Date Wesley Em MD PCP - General 09/30/16 12/01/21 Trey Pinedo MD [address] [place] [address] [place] [address] Consulting Physician Neurology 05/09/19 documented as of this encounter
--- OUTSIDE RECORDS SUMMARY | 2024-06-18 19:16 | XMS_ITS | Encounter Summary ---
Author Organization [facility] Healthcare Address [address] [place] [address] Care Team Providers Care Inspector Integrated Circuits Name Role Phone Wesley Em MD Primary Care Provider [phone] Trey Pinedo MD Unavailable [phone] Encounter Details Date Type Department Care Team (Late st Contact Info) Description 09/20/2019 12:30 PM CDT Lab [address] [address] Type 2 diabetes mellitus with hyperlipidemia (CMS/HCC) [...] on file Legal Sex Male 6:00 PM FIREMAN HELPER Gender Identity Not on file Sexual Orientation Straight 01/23/2021 10 :16 PM CDT COVID-19 Exposure Response Date Recorded In the last month, have you been in contact with someone who was confirmed or suspected to have Coronavirus / COVID-19? No / Unsure 09/20/2019 9:32 AM CDT documented as of this encounter Miscellaneous Notes * Result Encounter Note - Clary Peters, PROFESSOR OF PSYCHIATRY - 09/20/2019 2:44 PM CDT Please let [...] children were not included. ?? (Diabetes Care [id number], 2008). ??The eAG is not equivalent to a fasting glucose. Blood specimen (specimen) 09/20/2019 9:01 AM CDT 09/20/2019 12:30 PM CDT us Clary Peters NP LAB BLOOD ORDERABLES Final R esult [facility] [address] [facility] Department [place] [address] documented in this encounter Visit Diagnoses Diagnosis Type 2 diabetes mellitus with hyperlipidemia (HCC) documented in this encounter Care Teams Inspector Integrated Circuits Relationship Specialty Start Date End Date Wesley Em MD PCP - General 09/30/16 12/01/21 Trey Pinedo MD [address] [place] [address] [address] [facility] [place] [address] Consulting Physician Neurology 05/09/19 documented as of this encounter
--- OUTSIDE RECORDS SUMMARY | 2024-06-18 19:16 | XMS_ITS | Encounter Summary ---
Author Organization [facility] Healthcare Address [address] [place] [address] Project Manager Name Role Phone Wesley Em MD Primary Care Provider [phone] Trey Pinedo MD Unavailable [phone] Reason for Visit * Reason Comments Altered Mental Status Encounter Details Date Type Department Care Team (Latest Contact Info) Description 05/07/2019 11:35 PM GASOLINE TRACTOR OPERATOR - 05/09/2019 12:44 PM [facility] Hospital Encounter [facility] IMU [address] [place] [address] Wesley Bird MD 1 [facility] [address] Verna Cox MD [address] [place] [address] [place] [id number] Polina Ashley MD 1 [facility] [address] [address] Oliver Spence MD [address] [place] [address] TIA (transient ischemic attack) (Primary Dx) Discharge [...] on file Legal Sex Male 6:00 PM GASOLINE TRACTOR OPERATOR Gender Identity Not on file Sexual Orientation Straight 01/23/2021 10 :16 PM CDT documented as of this encounter Last Filed Vital Signs Vital Sign Reading Time Taken Comments Blood Pressure 163/89 05/09/2019 8:56 AM GASOLINE TRACTOR OPERATOR Pulse 75 05/09/2019 8:56 AM GASOLINE TRACTOR OPERATOR Temperature 36 ??C (96.8 ??F) 05/09/2019 8:56 AM GASOLINE TRACTOR OPERATOR Respiratory Rate 16 05/09/2019 8:56 AM GASOLINE TRACTOR OPERATOR Oxygen Saturation 95% 05/09/2019 8:56 AM GASOLINE TRACTOR OPERATOR Inhaled Oxygen Concentration - - Weight 91.9 kg (202 lb 9.6 oz) 05/07/2019 11:41 PM GASOLINE TRACTOR OPERATOR Height 177.8 cm (5' 10 ) 05/08/2019 1:40 PM GASOLINE TRACTOR OPERATOR Body Mass Index 29.07 05/07/2019 11:41 PM GASOLINE TRACTOR OPERATOR documented in this encounter Discharge Diagnoses Diagnosis Hypertensive encephalopathy - HYPERTENSIVE ENCEPHALOPATHY Transient cerebral ischemic attack, unspecified - TRANSIENT CEREBRAL ISCHEMIC ATTACK, UNSPECIFIED Hypertensive emergency - HYPERTENSIVE EMERGENCY Type 2 diabetes mellitus without complications (CMS/HCC) (HCC) - TYPE 2 DIABETES MELLITUS WITHOUT COMPLICATIONS Hyperlipidemia, unspecified - HYPERLIPIDEMIA, UNSPECIFIED Essential (primary) hypertension - ESSENTIAL (PRIMARY) HYPERTENSION Unspecified essential hypertension Atherosclerotic heart disease of [place] coronary artery without angina pectoris - ATHEROSCLEROTIC HEART DISEASE OF TORRES MARTINEZ CORONARY ARTERY WITHOUT ANGINA PECTORIS Chronic obstructive [...] dependence - PERSONAL HISTORY OF NICOTINE DEPENDENCE 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 (current) use of antithrombotics/antiplatelets - JUNIOR COPYWRITER (CURRENT) USE OF ANTITHROMBOTICS/ANTIPLATELETS senior care (current) use of aspirin - SHELTER (CURRENT) USE OF ASPIRIN Other [facility] (current) drug therapy - OTHER JUNIOR COPYWRITER (CURRENT) DRUG THERAPY Personal history of transient [...] MD Primary Care Physician at Discharge: Wesley mE MD [phone] Admission Date: 05/07/2019 Discharge Date: 05/09/2019 Date of Service: May 09, 2019 Primary Discharge Diagnosis: TIA Hypertensive emergency Secondary Discharge Diagnosis: Active Problems: Hyperlipidemia Benign prostatic hyperplasia with lower urinary tract symptoms 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 spent 35 minutes LINE TRACTOR OPERATOR documented in this encounter Discharge Instructions * Discharge Instructions* Brook Donis, RN - 05/09/2019 12:13 PM GASOLINE TRACTOR OPERATOR Images from the original note were not [...] signs. This is an emergency. ?? 2017 [employer] Information is for End User's use only and may not be sold, redistributed or otherwise used for commercial purposes. All illustrations and images included in CareNotes?? are the copyrighted property of [employer]. or [employer]. The above information is an ocular care aide only. It is not intended as medical advice for individual conditions or treatments. Talk to your doctor, nurse or pharmacist before following any medical regimen to see if it is safe and effective for you. LINE TRACTOR OPERATOR * Attachments The following attachments cannot be sent through Care Everywhere. * Clonidine (By injection) (Croatian) documented in this encounter Medications at Time [...] Stress Factor: 1.1 Activity Factor: 1.2 ?? [facility] Total Energy Needs + Fever Factor: 2042.04 [...] : 05/14/19 Daisha Cleary, MS RD LDN LINE TRACTOR OPERATOR * Paulette Hameed MORTGAGE PROCESSING MANAGER - 05/09/2019 10:46 AM CST Speech Language/Pathology 05/09/19 1000 General Chart Reviewed Yes Session Type (no charge) Subjective Comment Pt. and family report that pt. is back to normal and that he is being discharged. Current Functional Status MORTGAGE PROCESSING MANAGER Swallowing Swallowing a regular diet without difficulty MORTGAGE PROCESSING MANAGER Cognition WFL- baseline according to family MORTGAGE PROCESSING MANAGER Communication Speech is clear and fluent. Oral motor skills are WNL. Speech Therapy Prognosis Services No skilled MORTGAGE PROCESSING MANAGER services at this time LINE TRACTOR OPERATOR * Olive Kowalski NP - 05/09/2019 8:20 [...] Please call if there is any question. LINE TRACTOR OPERATOR * Estephanie Jones, PT - 05/08/2019 5:25 PM CST Physical Therapy 05/08/19 3987 General Chart Reviewed Yes Session Type Evaluation [...] walker;Single point cane Prior Function Level of [place] Independent functional transfers;Independent with ambulation Lives With [...] PT Evaluation Complete Yes Estephanie Jones, PT LINE TRACTOR OPERATOR * Doroteo Martínez, [facility] - 05/08/2019 2:14 PM CST This therapy was substituted for Finasteride per protocol. LINE TRACTOR OPERATOR * Marycarmen Beckman, OT - 05/08/2019 1:31 PM CST Occupational Therapy 05/08/19 1145 General Chart Reviewed Yes Session Type Evaluation OT Received On 05/08/19 Subjective Agreeable to Therapy Family/Caregiver Present No Occupational Therapy-Patient Goal return home Home Living Type of Home House Home Mobility Equipment Wheeled walker;Single point cane Additional Comments uses no device at PLOF Prior Function Level of [place] Independent with ADLs;Independent functional transfers;Independent with ambulation;Independent [...] to Discharge Yes OT Evaluation Complete Yes LINE TRACTOR OPERATOR * Bharat Lipscomb RN - 05/08/2019 10:52 [...] been taking his meds) Financial Resource Income [facility]/Pension Payor Source Medicare;[employer] Potential Discharge Needs Anticipated discharge level of care Private residence Pt/Family agrees with Anticipated Level of Care Yes Patient expects to be discharged to: Private residence Dialysis No Behavioral Health Services No LINE TRACTOR OPERATOR * Bharat Lipscmob RN - 05/08/2019 10:47 AM CST 05/08/19 [...] railing? 4 Total Score (range 6-24) 24 LINE TRACTOR OPERATOR documented in this encounter H&P Notes * [...] tongue midline, mucosa moist Lungs CTA Heart: [id number], no significant murmur or gallop Abd: +BS, [...] esophagus without dysplasia Coronary artery disease involving [place] coronary artery of [place] heart without angina pectoris Hypertensive emergency TIA (transient ischemic attack) History of noncompliance with medical treatment Polina Ashley MD Date of Service: 05/08/2019 LINE TRACTOR OPERATOR documented in this encounter Consult Notes * [...] comprehension intact, Follow command appropriately Cranial nerve: GAEY, corneal reflex present. EOMI, VFF by confrontation [...] esophagus without dysplasia Coronary artery disease involving [place] coronary artery of [place] heart without angina pectoris Hypertensive emergency TIA [...] medications Trey Pinedo MD 05/08/2019 4:34 PM LINE TRACTOR OPERATOR documented in this encounter Nursing Notes * Matthew Draper RN - 05/08/2019 8:16 PM CST Of the floor to MRI at 1930. Requested pain medicine while in MRI for lower back pain that is postural when laying down. Rated at 10/10 aching/stabbing in quality. *See MAR LINE TRACTOR OPERATOR documented in this encounter ED Notes * Wesley Bird MD - 05/07/2019 11:40 PM CST [...] time. History provided by: Patient and relative clinical services assistant used: No Patient History Patient Active Problem List Diagnosis Date Noted ??? Hypertensive emergency 05/08/2019 ??? TIA (transient ischemic attack) 05/08/2019 ??? History of noncompliance with medical treatment 05/08/2019 ??? History of colon polyps 11/17/2018 ??? Bladder stones 2017 ??? Coronary artery disease involving [place] coronary artery of [place] heart without angina pectoris 2017 ??? Chronic [...] 05/08/19 0050 Wesley Bird MD 05/08/19 1943 LINE TRACTOR OPERATOR LINE TRACTOR OPERATOR * Ratna Fried RN - 05/07/2019 11:36 PM CST Patient and family states that at around 2300 pt started slurring his words and not making sense. They brought him to be checked out. Pt's slurred speech has resolved and patient is alert and oriented to person, place and time. LINE TRACTOR OPERATOR documented in this encounter Miscellaneous Notes * [...] free from injury Outcome: Adequate for Discharge LINE TRACTOR OPERATOR * Plan of Care - Matthew Draper [...] Will remain free from injury Outcome: Progressing LINE TRACTOR OPERATOR * Plan of Care - Estephanie Jones PT - 05/08/2019 5:26 PM CST Problem: PT Misc Goal: STG - Misc 1 Description Provide PT eval to assess if need for skilled care. Outcome: Adequate for Discharge Pt is up ad lukasz in room. Was Indep 200' x 1 in halls w/o device. No LOB or gait deviations. No skilled PT needed. DC PT. LINE TRACTOR OPERATOR * Plan of Care - Vahe Fan RN - 05/08/2019 2:39 PM CST Goals: Clinical Goals for the Shift: no neuro deficits Summary: Admitted to unit at 1340, no neuro deficits noted. Ambulating to BR per self, steady gait,no falls. Monitor shows NSR. LINE TRACTOR OPERATOR * ED Re-evaluation Note - Verna Cox [...] and actions. Verna Cox MD 05/08/19 0120 LINE TRACTOR OPERATOR * ED Procedure Note - Wesley Bird [...] wave progression. Wesley Bird MD 05/08/19 0006 LINE TRACTOR OPERATOR documented in this encounter Plan of Treatment Not on file documented as of this encounter Procedures Procedure Name Priority Date/Time Associated Diagnosis Comments MRI BRAIN WO CONTRAST ED 05/08/2019 8:58 PM GASOLINE TRACTOR OPERATOR US CAROTIDS DUPLEX BILATERAL ED 05/08/2019 3:39 PM GASOLINE TRACTOR OPERATOR TRANSTHORACIC ECHO (TTE) COMPLETE W DOPPLER/CF W CONTRAST Routine 05/08/2019 2:59 PM GASOLINE TRACTOR OPERATOR HEMOGLOBIN A1C Routine 05/08/2019 6:48 AM GASOLINE TRACTOR OPERATOR LIPID PANEL Routine 05/08/2019 6:48 AM G[address]OL[address] TRACTOR O[address] CT HEAD WO CONTRAST ED 05/08/2019 1 2:22 AM GASOLINE TRACTOR OPERATOR XR CHEST 1 VIEW ED 05/08/2019 12:07 AM GASOLINE TRACTOR OPERATOR EGFR STAT 05/07/2019 11:56 PM GASOLINE TRACTOR OPERATOR DIFFERENTIAL AUTO STAT 05/07/2019 11: 56 PM GASOLINE TRACTOR OPERATOR CBC WITH AUTO DIFFERENTIAL STAT 05/07/2019 11:56 PM GASOLINE TRACTOR OPERATOR APTT STAT 05/07/2019 11:56 PM GASOLINE TRACTOR OPERATOR PROTIME-INR STAT 05/07/2019 11:56 PM GASOLINE TRACTOR OPERATOR TROPONIN T STAT 05/07/2019 11:56 PM GASOLINE TRACTOR OPERATOR ETHANOL STAT 05/07/2019 11:56 PM GASOLINE TRACTOR OPERATOR ACETAMINOPHEN LEVEL STAT 05/07/2019 1 1:56 PM GASOLINE TRACTOR OPERATOR SALICYLATE LEVEL STAT 05/07/2019 11:5 6 PM GASOLINE TRACTOR OPERATOR HEPATIC FUNCTION PANEL Add-On 9 11:56 PM GASOLINE TRACTOR OPERATOR BASIC METABOLIC PANEL STAT 05/07/2019 11:56 PM GASOLINE TRACTOR OPERATOR POCT GLUCOSE DEVICE Routine 05/07/2019 1 1:54 PM GASOLINE TRACTOR OPERATOR ECG 12-LEAD STAT 05/07/2019 11:52 PM GASOLINE TRACTOR OPERATOR documented in this encounter Results * MRI Brain WO Contrast (05/08/2019 8:58 PM GASOLINE TRACTOR OPERATOR) Anatomical Region Laterality Modality Head and Neck N/A Magnetic Resonan ce 05/08/2019 8:58 PM GASOLINE TRACTOR OPERATOR Impressions 05/08/2019 9:10 PM GASOLINE TRACTOR OPERATOR 1. ??NO ACUTE INTRACRANIAL HEMORRHAGE OR INFARCT. 2. ??MODERATE SMALL VESSEL MICROVASCULAR ISCHEMIC DISEASE. 3. 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 Electronically signed by: Jaquan Mcmanus M.D. Narrative 05/08/2019 9:10 PM GASOLINE TRACTOR OPERATOR MRI BRAIN WO CONTRAST HISTORY: ??5 minute [...] * VL US CAROTIDS (05/08/2019 3:39 PM GASOLINE TRACTOR OPERATOR) Anatomical Region Laterality Modality Vascular Bilateral Ultrasound 05/08/2019 3:43 PM GASOLINE TRACTOR OPERATOR Impressions 05/08/2019 3:45 PM GASOLINE TRACTOR OPERATOR 1. ??MILD TO MODERATE STENOSES BILATERALLY DESCRIBED ABOVE. ??NO DEFINITE SEVERE STENOSIS IDENTIFIED. 2. ??ANTEGRADE VERTEBRAL FLOW BILATERALLY. Electronically signed by: Ady Farnsworth 05/08/2019 3:45 PM GASOLINE TRACTOR OPERATOR US CAROTIDS DUPLEX BILATERAL HISTORY: Personal history [...] W DOPPLER/CF W CONTRAST (05/08/2019 2:59 PM GASOLINE TRACTOR OPERATOR) Anatomical Region Laterality Modality Ultrasound 05/08/2019 3:19 PM GASOLINE TRACTOR OPERATOR Narrative 05/08/2019 3:32 PM GASOLINE TRACTOR OPERATOR [address] [address] Echocardiogram Report Patient Name: VERNA ZUNIGA : 1945 Study Date: 05/08/2019 15:19:28 Gender: M Tech: FREELANCE DATA ENTRY Location: 2603 Ref.Provider: POLINA ASHLEY Height(Cm): 178 [...] Signed By: Dr Gadiel Traore 2019-05-08 15:32:57 GASOLINE TRACTOR OPERATOR Procedure Note Gadiel Traore, DO - 05/08/[address] [place] [address] Echocardiogram Report Patient Name: VERNA ZUNIGA : 1945 Study Date: 05/08/2019 15:19:28 Gender: M Tech: FREELANCE DATA ENTRY Location: 2603 Ref.Provider: POLINA ASHLEY Height(Cm): 178 [...] Signed By: Dr Gadiel Traore 2019-05-08 15:32:57 GASOLINE TRACTOR OPERATOR us Polina Ashley MD CV ECHO PROCEDURES Final Resu lt * (ABNORMAL) Hemoglobin A1c (05/08/2019 6:48 AM GASOLINE TRACTOR OPERATOR) Hgb A1C 5.8(H) 4.0 - 5.6 % [facility] ([place]) Estimated Average Glucose 120 mg/dL [facility] ([place]) Comment: The ADA recommends reporting an estimated Average Glucose (eAG) with all Hemoglobin A1c results using the equation derived from a study of 507 normal and diabetic adults. ??Minority populations were underrepresented and children were not included. ?? (Diabetes Care 31:7637-7821, 2008). ??The eAG is not equivalent to a fasting glucose. Blood specimen (specimen) 05/08/2019 6:48 AM GASOLINE TRACTOR OPERATOR 05/08/2019 7:16 AM GASOLINE TRACTOR OPERATOR us Verna Cox MD LAB BLOOD ORDERABLES Final R esult [facility] ([place]) 1 [facility] [place] [address] * (ABNORMAL) Lipid panel (05/08/2019 6:48 AM GASOLINE TRACTOR OPERATOR) Cholesterol 166 30 - 199 mg/dL [facility] [...] 2018. Non-HDL Cholesterol 128 mg/dL [facility] ([place]) Comment: Interpretive Data Ages < or = [...] 2018. Chol/HDL ratio 4 JEAN CARLOS [facility] ([place]) Blood specimen (specimen) 05/08/2019 6:48 AM GASOLINE TRACTOR OPERATOR 05/08/2019 7:16 AM GASOLINE TRACTOR OPERATOR us Verna Cox MD LAB BLOOD ORDERABLES Final R esult [facility] ([place]) 1 [facility] [place] [address] * CT Head WO Contrast (05/08/2019 12:22 AM GASOLINE TRACTOR OPERATOR) Anatomical Region Laterality Modality Head and Neck N/A Computed Tomogra phy 05/08/2019 6:50 AM GASOLINE TRACTOR OPERATOR Impressions 05/08/2019 6:59 AM GASOLINE TRACTOR OPERATOR 1. No acute findings. 2. Mild generalized atrophy. 3. Mild to moderate white matter changes suggestive of microangiopathy. 4. Cerebrovascular arteriosclerosis. 5. 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 6. 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 7. ??Right insular cortex hypodensity also appears old, but more prominent than on 10/15/2016. Preliminary report faxed to Emergency Department by [facility] on 05/08/2019 at 0058 hours. Electronically signed by: Heri Greenberg Jr., M.D. Narrative 05/08/2019 6:59 AM GASOLINE TRACTOR OPERATOR PROCEDURE: CT HEAD WO CONTRAST HISTORY: concern [...] at 0058 hours. Electronically signed by: Heri Greebnerg Jr., M.D. us Wesley Bird MD IMG CT PROCEDURES Final Resu lt * XR Chest 1 Vw Portable (05/08/2019 12:07 AM GASOLINE TRACTOR OPERATOR) Anatomical Region Laterality Modality Body, Chest N/A Computed Radiogr aphy 05/08/2019 7:13 AM GASOLINE TRACTOR OPERATOR Impressions 05/08/2019 7:15 AM GASOLINE TRACTOR OPERATOR 1. No active disease. Electronically signed by: Heri Greenberg Jr., M.D. Narrative 05/08/2019 7:15 AM GASOLINE TRACTOR OPERATOR XR CHEST 1 VIEW HISTORY: AMS. Patient [...] Electronically signed by: Heri Greenberg Jr., M.D. Wesley Bird MD IMG XR PROCEDURES Final Resu lt * Hepatic function panel (05/07/2019 11:56 PM GASOLINE TRACTOR OPERATOR) Bilirubin, total 0.6 0.1 - 1.2 mg/dL [facility] ([place]) Bilirubin, direct <0.2 0.1 - 0.3 mg/dL [...] Specimen Blood specimen (specimen) 05/07/2019 11:56 PM GASOLINE TRACTOR OPERATOR 05/08/2019 1:04 AM GASOLINE TRACTOR OPERATOR Wesley Bird MD LAB BLOOD ORDERABLES Final R esult [facility] ([place]) 1 [facility] [place] [address] * eGFR (05/07/2019 11:56 PM GASOLINE TRACTOR OPERATOR) eGFR 71 mL/min/1.7 3 m2 [facility] ([place]) Comment: Interpretive Data Reference Interval Normal ?>/= 90 mL/min/1.73m2 Mildly decreased* ? 60 - 89 mL/min/1.73m2 Mildly to moderately decreased ?45 - 59 mL/min/1.73m2 Moderately to severely decreased ??30 - 44 mL/min/1.73m2 Severely decreased ?15 - 29 mL/min/1.73m2 Kidney Failure ?< 15 ??mL/min/1.73m2 *Relative to young adult level If -[place] multiply value by 1.16. Estimated glomerular filtration [...] 2016. Blood specimen (specimen) 05/07/2019 11:56 PM GASOLINE TRACTOR OPERATOR 05/08/2019 us Wesley Bird MD LAB BLOOD ORDERABLES Final R esult [facility] ([place]) 1 [facility] [place] [address] * Differential, auto (05/07/2019 11:56 PM GASOLINE TRACTOR OPERATOR) Neutrophil abs 4.8 1.7 - 6.5 K/cumm [...] 2017. Blood specimen (specimen) 05/07/2019 11:56 PM GASOLINE TRACTOR OPERATOR 05/08/2019 us Wesley Bird MD LAB BLOOD ORDERABLES Final R esult [facility] ([place]) 1 [facility] [place] [address] * Salicylate level (05/07/2019 11:56 PM GASOLINE TRACTOR OPERATOR) Salicylate <5.0 4.0 - 29.0 mg/dL [facility] ([place]) Comment: Interpretive Data Therapeutic range: ??4-29 mg/dl ?? Toxic: ?30-70 mg/dl ? Lethal: ? Greater than 70 mg/dl Current interpretive data was last revised on 2014. Blood specimen (specimen) 05/07/2019 11:56 PM GASOLINE TRACTOR OPERATOR 05/08/2019 Wesley Bird MD LAB BLOOD ORDERABLES Final R esult Performing Organization Address [facility] Co de Phone Number [facility] ([place]) 1 [facility] [place] [address] * Ethanol (05/07/2019 11:56 PM GASOLINE TRACTOR OPERATOR) Ethanol <10 <=10 mg/dL [facility] Antonio ([place]) Comment: Interpretive Data Legal limit of intoxication > or = 80 mg/dL Levels > or = 400 mg/dL are potentially TOXIC. Current interpretive data was last revised on 2018. Blood specimen (specimen) 05/07/2019 11:56 PM GASOLINE TRACTOR OPERATOR 05/08/2019 Wesley Bird MD LAB BLOOD ORDERABLES Final R esult Performing Organization Address [facility] Co de Phone Number [facility] ([place]) 1 [facility] [place] [address] * Acetaminophen level (05/07/2019 11:56 PM GASOLINE TRACTOR OPERATOR) Acetaminophen <15.0 10.0 - 30.0 mcg/mL [facility] [...] 2014 Blood specimen (specimen) 05/07/2019 11:56 PM GASOLINE TRACTOR OPERATOR 05/08/2019 Wesley Bird MD LAB BLOOD ORDERABLES Final R esult [facility] ([place]) 1 [facility] [place] [address] * Troponin T (05/07/2019 11:56 PM GASOLINE TRACTOR OPERATOR) Troponin T <0.01 0.00 - 0.01 ng/mL [...] limit for troponin assay. ??Journal of the [place] College of Cardiology 2012;60:1581-98. Current Interpretive Data Last Revised Date: 2018. Blood specimen (specimen) 05/07/2019 11:56 PM GASOLINE TRACTOR OPERATOR 05/08/2019 Wesley Bird MD LAB BLOOD ORDERABLES Edited Result - Final Performing Organization Address [facility]/ZIP Co de Phone Number [facility] ([place]) 1 [facility] [place] [address] * aPTT (05/07/2019 11:56 PM GASOLINE TRACTOR OPERATOR) aPTT 35.0 25.0 - 37.0 sec [facility] ([place]) Blood specimen (specimen) (Blood, Venous) 05/07/2019 11:56 PM GASOLINE TRACTOR OPERATOR 05/08/2019 Narrative [facility] ([place]) - 05/08/2019 12:14 AM GASOLINE TRACTOR OPERATOR Potential stroke patient. Wesley Bird MD LAB BLOOD ORDERABLES Final R esult [facility] ([place]) 1 [facility] [place] [address] * Protime-INR (05/07/2019 11:56 PM GASOLINE TRACTOR OPERATOR) Pathologist [facility] PT 12.8 9.5 - 13.0 sec RUBENS [...] specimen (specimen) (Blood, Venous) 05/07/2019 11:56 PM GASOLINE TRACTOR OPERATOR 05/08/2019 Narrative [facility] ([place]) - 05/08/2019 12:11 AM GASOLINE TRACTOR OPERATOR Potential stroke patient. us Wesley Bird MD LAB BLOOD ORDERABLES Final R esult [facility] ([place]) 1 [facility] [place] [address] * (ABNORMAL) CBC with auto differential (05/07/2019 11:56 PM GASOLINE TRACTOR OPERATOR) Pathologist [facility] WBC 7.8 3.8 - 9.9 K/cumm URVASHINER [...] (BETTY) MCHC 36.3(H) 32.3 - 35.7 g/dL [facility] ([place]) RDW CV 12.4 11.1 - 14.9 % [facility] ([place]) RDW SD 41.8 35.7 - 48.1 fL [facility] ([place]) NRBC abs 0.00 0.00 - 0.01 K/cumm [facility] ([place]) Blood specimen (specimen) (Blood, Venous) 05/07/2019 11:56 PM GASOLINE TRACTOR OPERATOR 05/08/2019 Narrative [facility] ([place]) - 05/08/2019 12:19 AM GASOLINE TRACTOR OPERATOR Potential Stroke Patient us Wesley Bird MD LAB BLOOD ORDERABLES Final R esult [facility] ([place]) 1 [facility] [place] [address] * Basic metabolic panel (05/07/2019 11:56 PM GASOLINE TRACTOR OPERATOR) Sodium 138 135 - 145 mmol/L [facility] ([place]) Potassium, pl 4.1 3.3 - 4.9 mmol/L [facility] ([place]) Comment:Hemolysis present. R esults may be affected. Slightly hemolyzed specimen ok to release result per Marisabel Sexton. Chloride 99 97 - 110 mmol/L [facility] ([place]) CO2 27 22 - 32 mmol/L [facility] ([place]) Anion gap 12 2 - 15 mmol/L [facility] ([place]) BUN 19 8 - 25 mg/dL [facility] ([place]) Creatinine 1.05 0.80 - 1.30 mg/dL [facility] ([place]) Glucose 106 70 - 199 mg/dL [facility] ([place]) Blood specimen (specimen) 05/07/2019 11:56 PM GASOLINE TRACTOR OPERATOR 05/08/2019 Narrative [facility] ([place]) - 05/08/2019 12:30 AM GASOLINE TRACTOR OPERATOR Potential Stroke patient. us Wesley Bird MD LAB BLOOD ORDERABLES Final R esult Performing Organization Address City/[facility]/ZIP Co de Phone Number [facility] ([place]) 1 [facility] [place] [address] * (ABNORMAL) POCT glucose (05/07/2019 11:54 PM GASOLINE TRACTOR OPERATOR) Glucose, POC 99(H) 71 - 98 mg/dL [facility]IMAL[facility]DA [facility] ([place]) Blood specimen (specimen) 05/07/2019 11:54 PM GASOLINE TRACTOR OPERATOR 05/07/2019 11:54 PM GASOLINE TRACTOR OPERATOR us Notinfile Unknown LAB POCT ORDERABLES - DEVICE F inal Result Performing Organization Address [facility] Co de Phone Number RUBENS CARMICHAEL (MONTROSE) 1 [facility] [place] [address] * ECG 12 lead (05/07/2019 11:52 PM GASOLINE TRACTOR OPERATOR) 05/07/2019 11:5 2 PM GASOLINE TRACTOR OPERATOR Narrative [facility] - 05/08/2019 2:36 PM GASOLINE TRACTOR OPERATOR Vent Rate: 69 bpm RR Interval: 860 msec SD Interval: 217 msec QRS Duration: 124 msec QT Interval: 428 msec QTC Interval: 448 msec P-R-T [place]: 14 - -60 - 85 degrees SINUS [...] Wesley Bird MD ECG ORDERABLES Final Result [facility] documented in this encounter Visit Diagnoses Diagnosis [...] hazards to health Coronary artery disease involving seldovia coronary artery of s[place]ovia heart without angina pectoris documented in this [...] Mon05/08/19 at 1946 Given 05/08/2019 7:58 PM GASOLINE TRACTOR OPERATOR 650 mg aspirin enteric coated tablet 81 mg 81 mg, oral, Daily, First dose on Mon05/08/19 at 1500, Do not crush, chew, cut, dissolve, open or otherwise manipulate tablet/capsule. Given 05/09/2019 9:23 AM GASOLINE TRACTOR OPERATOR 81 mg Given 05/08/2019 4:17 PM GASOLINE TRACTOR OPERATOR 81 mg atorvastatin (LIPITOR) tablet 40 mg 40 mg, oral, Daily, First dose on Mon05/08/19 at 1500 Given 05/09/2019 9:23 AM GASOLINE TRACTOR OPERATOR 40 mg Given 05/08/2019 4:17 PM GASOLINE TRACTOR OPERATOR 40 mg cloNIDine (CATAPRES-TTS) 0.1 mg/24 hr patch weekly 1 patch 1 patch, transdermal, Administer over 7 Days, Weekly, First dose on Mon05/08/19 at 1745, Apply overlay over the clonidine patch. Write only on the overlay. Medication Applied 05/08/2019 6:21 PM GASOLINE TRACTOR OPERATOR 1 patch Right Shoulder clopidogrel (PLAVIX) tablet 75 mg 75 mg, oral, Once, On Mon05/08/19 at 0115, For 1 dose Given 05/08/2019 1:39 AM GASOLINE TRACTOR OPERATOR 75 mg clopidogrel (PLAVIX) tablet 75 mg 75 mg, oral, Daily, First dose on Mon05/08/19 at 0155, Indications: cerebral ischemiaIndications:cereb ral ischemia Given 05/09/2019 9:23 AM GASOLINE TRACTOR OPERATOR 75 mg dutasteride (AVODART) capsule 0.5 mg 0.5 mg, oral, Daily with dinner, First dose on Mon05/08/19 at 1800, Indications: benign prostatic hyperplasia with lower urinary tract sxIndications:benign prostatic hyperplasia with lower urinary tract sx Given 05/08/2019 5:23 PM GASOLINE TRACTOR OPERATOR 0.5 mg enoxaparin (LOVENOX) syringe 40 mg 40 mg, subcutaneous, Daily (for enoxaparin), First dose on Mon05/09/19 at 2100, Indications: Deep Vein Thrombosis PreventionIndications:Adrianna p Vein Thrombosis Prevention hydrALAZINE (APRESOLINE) injection 10 mg 10 mg, intravenous, Administer over 2 Minutes, Once, On Mon05/08/19 at 1012, For 1 dose, Indications: hypertensionIndications:h ypertension Given 05/08/2019 10:13 AM GASOLINE TRACTOR OPERATOR 10 mg hydrALAZINE (APRESOLINE) injection 10 mg 10 mg, intravenous, Administer over 2 Minutes, Every 6 hours PRN, high blood pressure, Starting on Mon05/08/19 at 1036, For systolic blood pressure greater than 175, Indications: hypertensionIndications:h ypertension Given 05/08/2019 10:45 PM GASOLINE TRACTOR OPERATOR 10 mg Given 05/08/2019 5:23 PM GASOLINE TRACTOR OPERATOR 10 mg labetalol (NORMODYNE,TRANDATE) injection 10 mg 10 mg, intravenous, at 60 mL/hr, Administer over 2 Minutes, Once, On Mon05/08/19 at 0057, For 1 dose Given 05/08/2019 1:03 AM GASOLINE TRACTOR OPERATOR 10 mg 60 mL/hr metoprolol (LOPRESSOR) tablet 25 mg 25 mg, oral, Once, On Mon05/08/19 at 0136, For 1 dose Given 05/08/2019 1:40 AM GASOLINE TRACTOR OPERATOR 25 mg metoprolol (LOPRESSOR) tablet 25 mg 25 mg, oral, 2 times daily, First dose on Mon05/08/19 at 2100 Given 05/09/2019 9:23 AM GASOLINE TRACTOR OPERATOR 25 mg Given 05/08/2019 9:58 PM GASOLINE TRACTOR OPERATOR [address] (PROTONIX) extended release tablet 40 mg 40 mg, oral, Daily, First dose on Mon05/08/19 at 1500, Do not crush, chew, cut, dissolve, open or otherwise manipulate tablet/capsule., Indications: Treatment of Non-Bleeding Gastric DisorderIndications:Treatment of Non-Bleeding Gastric Disorder Given 05/09/2019 9:23 AM GASOLINE TRACTOR OPERATOR 40 mg Given 05/08/2019 4:17 PM GASOLINE TRACTOR OPERATOR 40 mg perflutren protein-a (OPTISON) 3 mL in sodium chloride 0.9% 8 mL syringe 1-8 mL, intravenous, Once in imaging, contrast, Starting on Mon05/08/19 at 1458, For 1 dose, Intra-Procedure (CV) Given 05/08/2019 2:58 PM GASOLINE TRACTOR OPERATOR 3 mL Left Forearm tamsulosin (FLOMAX) extended release capsule 0.4 mg 0.4 mg, oral, Daily with dinner, First dose on Mon05/08/19 at 1800, Do not crush, chew, cut, dissolve, open or otherwise manipulate tablet/capsule. Given 05/08/2019 5:23 PM GASOLINE TRACTOR OPERATOR 0.4 mg documented in this encounter Discontinued [...] Recently Administered Medications Times are shown in GASOLINE TRACTOR OPERATOR. Scheduled Medication Order 05/07/2019 05/08/2019 05/09/2019 aspirin [...] 05/08/2019 documented in this encounter Care Teams Rd Project Manager Relationship Specialty Start Date End Date Wesley Em MD PCP - General 09/30/16 12/01/21 Trey Pinedo MD [address] [place] [facility] [place] [address] Consulting Physician Neurology 05/09/19 documented as of this encounter
--- OUTSIDE RECORDS SUMMARY | 2024-06-18 19:16 | XMS_ITS | Encounter Summary ---
Author Organization [facility] Address [address] [place] [address] Care Team Providers Care Hplc Chemist Name Role Phone Wesley Em MD Primary Care Provider [phone] Trey Pinedo MD Unavailable [phone] Reason for Visit * Reason Comments discuss blood presure Encounter Details Date Type Department Care Team (Late st Contact Info) Description 08/13/2019 2:15 PM REGISTERED MEDICAL ASSISTANT Office Visit [facility] [address] [facility] [address] [place] [address] Wesley Em MD [address] [place] [id number] Severe uncontrolled hypertension (Primary Dx); Body mass [...] file Legal Sex Male 6:00 PM REGISTERED MEDICAL ASSISTANT Gender Identity Not on file Sexual Orientation Straight 01/23/2021 10 :16 PM CDT documented as of this encounter Last Filed Vital Signs Vital Sign Reading Time Taken Comments Blood Pressure 150/80 08/13/2019 2:27 PM REGISTERED MEDICAL ASSISTANT Pulse 60 08/13/2019 2:27 PM REGISTERED MEDICAL ASSISTANT Temperature - - Respiratory Rate 24 08/13/2019 2:27 PM REGISTERED MEDICAL ASSISTANT Oxygen Saturation - - Inhaled Oxygen Concentration - - Weight 93 kg (205 lb) 08/13/2019 2:27 PM REGISTERED MEDICAL ASSISTANT Height 177.8 cm (5' 10 ) 08/13/2019 2:27 PM REGISTERED MEDICAL ASSISTANT Body Mass Index 29.41 08/13/2019 2:27 PM REGISTERED MEDICAL ASSISTANT documented in this encounter Ordered Prescriptions Prescription [...] in agreement with the plan of care. STERED MEDICAL ASSISTANT documented in this encounter Plan of [...] documented as of this encounter Care Teams Hplc Chemist Relationship Specialty Start Date End Date Wesley Em MD PCP - General 09/30/16 12/01/21 Trey Pinedo MD [address] [place] [address] Consulting Physician Neurology 05/09/19 documented as of this encounter
--- OUTSIDE RECORDS SUMMARY | 2024-06-18 19:16 | XMS_ITS | Encounter Summary ---
Author Organization [facility] Address [address] [place] [address] Care Team Providers Care Manager Respiratory Care Name Role Phone Wesley Em MD Primary Care Provider [phone] Trey Pinedo MD Unavailable [phone] Encounter Details Date Type Department Care Team (Late st Contact Info) Description 05/21/2019 Telephone [facility] [address] [facility] [address] [place] [address] Wesley Em MD [address] [place] [address] [address] [place] [address] Social History Tobacco Use Types Packs/Day Years Used Date Smoking Tobacco: Former Cigarettes 0.1 50 1 089 - 2009 Smokeless Tobacco: Never Alcohol Use Standard Drinks/Week Comments No 0 (1 standard drink = 0.6 oz pur e alcohol) PHQ-2 Answer Date Recorded PHQ-2 Score 0 02/22/2019 Sex and Gender Information Value Date Recorded Sex Assigned at Not on file Legal Sex Male 6:00 PM AIRBORNE AND AIR DELIVERY SPECIALIST Gender Identity Not on file Sexual Orientation Straight 01/23/2021 10 :16 PM CDT documented as of this encounter Miscellaneous Notes * Telephone Encounter - Dayanara Stoll - 05/22/2019 3:37 PM CST Pt aware. ORNE AND AIR DELIVERY SPECIALIST * Telephone Encounter - Stella Bucio MA - 05/22/2019 12:19 PM CST lmom ORNE AND AIR DELIVERY SPECIALIST * Telephone Encounter - Stella Bucio MA - 05/21/2019 2:02 PM CST lmom ORNE AND AIR DELIVERY SPECIALIST * Telephone Encounter - Clary Peters NP - 05/21/2019 1:12 PM CST The ultrasound of his carotids was ordered to complete in 1 year. ORNE AND AIR DELIVERY SPECIALIST * Telephone Encounter - Barbara Musa MA - 05/21/2019 12:45 PM AIRBORNE AND AIR DELIVERY SPECIALIST mkb ORNE AND AIR DELIVERY SPECIALIST * Telephone Encounter - Grace Redmond - 05/21/2019 12:09 PM CST Pt calling in regards to US Carotids ordered yesterday after pts appt with Clary. Pt asking if this is something pt is supposed to wait until next year to have done or if it is somethinghe is supposed to have done sooner than later. Please advise. ORNE AND AIR DELIVERY SPECIALIST documented in this encounter Plan of Treatment Not on file documented as of this encounter Visit Diagnoses Not on filedocumented in this encounter Care Teams Manager Respiratory Care Relationship Specialty Start Date End Date Wesley Em MD PCP - General 09/30/16 12/01/21 Trey Pinedo MD [address] [place] [address] [place] [address] Consulting Physician Neurology 05/09/19 documented as of this encounter
--- OUTSIDE RECORDS SUMMARY | 2024-06-18 19:16 | XMS_ITS | Encounter Summary ---
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
--- OUTSIDE RECORDS SUMMARY | 2024-06-18 19:17 | XMS_ITS | Encounter Summary ---
Author Organization [facility] Address [address] [place] [address] Care Team Providers Care Chemist Name Role Phone Wesley Em MD Primary Care Provider [phone] Encounter Details Date Type Department Care Team (Late st Contact Info) Description 04/03/2019 6:25 PM CDT Lab [address] [address] Essential hypertension; Mixed hyperlipidemia Social History Tobacco Use Types Packs/Day Years Used Date Smoking Tobacco: Former Smokeless Tobacco: Never Alcohol Use Standard Drinks/Week Comments No 0 (1 standard drink = 0.6 oz pur e alcohol) PHQ-2 Answer Date Recorded PHQ-2 Score 0 02/22/2019 Sex and Gender Information Value Date Recorded Sex Assigned at Not on file Legal Sex Male 6:00 PM GASOLINE ENGINE ASSEMBLER Gender Identity Not on file Sexual [...] BLOOD ORDERABLES Final Res ult RUBENS GANT [address] [place] [address] * (ABNORMAL) Lipid panel (04/03/2019 11:43 AM [...] ORDERABLES Final Res ult Performing Organization Address [facility] Co de Phone Number RUBENS [address] [place] [address] * Magnesium (04/03/2019 11:43 AM CDT) Magnesium 2.1 1.4 - 2.5 mg/dL [facility] Blood specimen (specimen) 04/03/2019 11:43 AM CDT 04/03/2019 6:29 PM CDT Wesley Em MD LAB BLOOD ORDERABLES Final Res ult Performing Organization Address [facility] de Phone Number [facility] [address] [place] [address] * (ABNORMAL) Basic metabolic panel (04/03/2019 11:43 AM CDT) Sodium 143 135 - 145 mmol/L [facility] Potassium, pl 3.7 3.3 - 4.9 mmol/L [facility] Chloride 102 97 - 110 mmol/L [facility] CO2 30 22 - 32 mmol/L [facility] Anion gap 11 2 - 15 mmol/L [facility] BUN 14 8 - 25 mg/dL [facility] Creatinine 1.37(H) 0.80 - 1.30 mg/dL [facility] Glucose 122 70 - 199 mg/dL [facility] Comment: Interpretive Data Fasting glucose >/= 126 [...] ORDERABLES Final Res ult Performing Organization Address City/State/[facility] Co de Phone Number RUBENS [address] [place] [address] documented in this encounter Visit Diagnoses Diagnosis Essential hypertension Unspecified essential hypertension Mixed hyperlipidemia documented in this encounter Care Teams Chemist Relationship Specialty Start Date End Date Wesley Em MD PCP - General 09/30/16 12/01/21 documented as of this encounter
--- OUTSIDE RECORDS SUMMARY | 2024-06-18 19:17 | XMS_ITS | Encounter Summary ---
Author Organization [facility] Facility Care Team Providers Care Demonstrator Sewing Techniques Name Role Phone Wesley Em MD Primary Care Provider [phone] Encounter Details Date Type Department Care Team (Latest Contact Info) Description 11/07/2018 Travel Social History Tobacco Use Types Packs/Day Years Used Date Smoking Tobacco: Former Smokeless Tobacco: Never Alcohol Use Standard Drinks/Week Comments No 0 (1 standard drink = 0.6 oz pur e alcohol) Sex and Gender Information Value Date Recorded Sex Assigned at Not on file Legal Sex Male 6:00 PM VETERANS' COORDINATOR Gender Identity Not on file Sexual Orientation Straight 01/23/2021 10 :16 PM CDT documented as of this encounter Plan of Treatment Not on file documented as of this encounter Visit Diagnoses Not on filedocumented in this encounter Care Teams Demonstrator Sewing Techniques Relationship Specialty Start Date End Date Wesley Em MD PCP - General 09/30/16 12/01/21 documented as of this encounter
--- OUTSIDE RECORDS SUMMARY | 2024-06-18 19:17 | XMS_ITS | Encounter Summary ---
Author Organization [facility] Address [address] [place] [address] Care Team Providers Care Scrap Burner Name Role Phone Wesley Em MD Primary Care Provider [phone] Encounter Details Date Type Department Care Team (Late st Contact Info) Description 05/03/2019 Telephone [place] [facility] [address] [facility] [address] [place] [address] Wesley Em MD [address] [place] [address] Social History Tobacco Use Types Packs/Day Years Used Date Smoking Tobacco: Former Smokeless Tobacco: Never Alcohol Use Standard Drinks/Week Comments No 0 (1 standard drink = 0.6 oz pur e alcohol) PHQ-2 Answer Date Recorded PHQ-2 Score 0 02/22/2019 Sex and Gender Information Value Date Recorded Sex Assigned at Not on file Legal Sex Male 6:00 PM TIBCO DEVELOPER Gender Identity Not on file Sexual [...] on filedocumented in this encounter Care Teams Scrap Burner Relationship Specialty Start Date End Date Wesley Em MD PCP - General 09/30/16 12/01/21 documented as of this encounter
--- OUTSIDE RECORDS SUMMARY | 2024-06-18 19:17 | XMS_ITS | Encounter Summary ---
Author Organization [facility] Address [address] [place] [address] Care Team Providers Care Rubber Goods Repairer Name Role Phone Wesley Em MD Primary Care Provider [phone] Encounter Details Date Type Department Care Team (Late st Contact Info) Description 04/03/2019 12:00 PM CDT Lab [facility] [address] [place] [address] [address] [place] [id number] Essential hypertension Social History Tobacco Use Types Packs/Day Years Used Date Smoking Tobacco: Former Smokeless Tobacco: Never Alcohol Use Standard Drinks/Week Comments No 0 (1 standard drink = 0.6 oz pur e alcohol) PHQ-2 Answer Date Recorded PHQ-2 Score 0 02/22/2019 Sex and Gender Information Value Date Recorded Sex Assigned at Not on file Legal Sex Male 6:00 PM 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
--- OUTSIDE RECORDS SUMMARY | 2024-06-18 19:17 | XMS_ITS | Encounter Summary ---
Author Organization [facility] Facility Care Team Providers Care Maritime Guard Name Role Phone Wesley Em MD Primary Care Provider [phone] Encounter Details Date Type Department Care Team [...] file Legal Sex Male 6:00 PM COMMUNICATIONS CONTROLLER Gender Identity Not on file Sexual Orientation Straight 01/23/2021 10 :16 PM CDT documented as of this encounter Plan of Treatment Not on file documented as of this encounter Visit Diagnoses Not on filedocumented in this encounter Care Teams Maritime Guard Relationship Specialty Start Date End Date Wesley mE MD PCP - General 09/30/16 12/01/21 documented as of this encounter
--- OUTSIDE RECORDS SUMMARY | 2024-06-18 19:17 | XMS_ITS | Encounter Summary ---
Author Organization [facility] Address [address] [place] [address] Care Team Providers Care Cafe Server Name Role Phone Wesley Em MD Primary Care Provider [phone] Encounter Details Date Type Department Care Team (Late st Contact Info) Description 04/01/2019 Telephone [facility] [address] [facility] [address] [place] [address] Martha Sutton MA Social History Tobacco Use Types Packs/Day Years Used Date Smoking Tobacco: Former Smokeless Tobacco: Never Alcohol Use Standard Drinks/Week Comments No 0 (1 standard drink = 0.6 oz pur e alcohol) PHQ-2 Answer Date Recorded PHQ-2 Score 0 02/22/2019 Sex and Gender Information Value Date Recorded Sex Assigned at Not on file Legal Sex Male 6:00 PM MEAT DEPARTMENT MANAGER Gender Identity Not on file Sexual [...] on filedocumented in this encounter Care Teams Cafe Server Relationship Specialty Start Date End Date Wesley Em MD PCP - General 09/30/16 12/01/21 documented as of this encounter
--- OUTSIDE RECORDS SUMMARY | 2024-06-18 19:17 | XMS_ITS | Encounter Summary ---
Author Organization [facility] Facility Care Team Providers Care Furnace Roaster Name Role Phone Welsey Em MD Primary Care Provider [phone] Encounter Details Date Type Department Care Team (Latest Contact Info) Description 11/29/2018 Travel Social History Tobacco Use Types Packs/Day Years Used Date Smoking Tobacco: Former Smokeless Tobacco: Never Alcohol Use Standard Drinks/Week Comments No 0 (1 standard drink = 0.6 oz pur e alcohol) Sex and Gender Information Value Date Recorded Sex Assigned at Not on file Legal Sex Male 6:00 PM RELAY MAN Gender Identity Not on file Sexual Orientation Straight 01/23/2021 10 :16 PM CDT documented as of this encounter Plan of Treatment Not on file documented as of this encounter Visit Diagnoses Not on filedocumented in this encounter Care Teams Furnace Roaster Relationship Specialty Start Date End Date Wesley Em MD PCP - General 09/30/16 12/01/21 documented as of this encounter
--- OUTSIDE RECORDS SUMMARY | 2024-06-18 19:17 | XMS_ITS | Encounter Summary ---
Author Organization [facility] Medical [facility] Address [address] [place] [address] Care Team Providers Care Greenhouse Worker Name Role Phone Wesley Em MD Primary Care Provider [phone] Reason for Visit * Reason Comments Cough began yesterday Sore Throat Encounter Details Date Type Department Care Team (Latest Contact Info) Description 11/07/2018 2:00 PM CDT Office Visit [facility] [address] [place] [address] [address] [place] [address] Wesley Em MD [address] [place] [address] [address] [place] [address] Tracheobronchitis (Primary Dx); Sore throat Social History Tobacco Use Types Packs/Day Years Used Date Smoking Tobacco: Former Smokeless Tobacco: Never Alcohol Use Standard Drinks/Week Comments No 0 (1 standard drink = 0.6 oz pur e alcohol) Sex and Gender Information Value Date Recorded Sex Assigned at Not on file Legal Sex Male 6:00 PM MARKETING ANALYTICS ANALYST Gender Identity Not on file Sexual [...] pharyngitis documented in this encounter Care Teams Greenhouse Worker Relationship Specialty Start Date End Date Wesley Em MD PCP - General 09/30/16 12/01/21 documented as of this encounter
--- OUTSIDE RECORDS SUMMARY | 2024-06-18 19:17 | XMS_ITS | Encounter Summary ---
Author Organization [facility] Address [address] [place] [address] Care Team Providers Care Security Operations Analyst Name Role Phone Wesley Em MD Primary Care Provider [phone] Reason for Visit * Reason Comments tracheobronchitis f/u Encounter Details Date Type Department Care Team (Late st Contact Info) Description 11/29/2018 10:00 AM CDT Office Visit [facility] [facility] 2 [facility] [address] [place] [address] Wesley Em MD [address] [place] [address] [address] [place] [address] Essential hypertension (Primary Dx); BMI 28.0-28.9,adult; Mixed hyperlipidemia; Chronic GERD Social History Tobacco Use Types Packs/Day Years Used Date Smoking Tobacco: Former Smokeless Tobacco: Never Alcohol Use Standard Drinks/Week Comments No 0 (1 standard drink = 0.6 oz pur e alcohol) Sex and Gender Information Value Date Recorded Sex Assigned at Not on file Legal Sex Male 6:00 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
--- OUTSIDE RECORDS SUMMARY | 2024-06-18 19:17 | XMS_ITS | Encounter Summary ---
Author Organization [facility] Medical [facility] Address [address] [place] [address] Care Team Providers Care Program Or Project Administrator Name Role Phone Wesley Em MD Primary Care Provider [phone] Encounter Details Date Type Department Care Team (Late st Contact Info) Description 04/05/2019 Telephone [facility] [address] [facility] [address] [place] [address] Wesley Em MD [address] [address] Social History Tobacco Use Types Packs/Day Years Used Date Smoking Tobacco: Former Smokeless Tobacco: Never Alcohol Use Standard Drinks/Week Comments No 0 (1 standard drink = 0.6 oz pur e alcohol) PHQ-2 Answer Date Recorded PHQ-2 Score 0 02/22/2019 Sex and Gender Information Value Date Recorded Sex Assigned at Not on file Legal Sex Male 6:00 PM RETAIL BUSINESS MANAGER Gender Identity Not on file [...] on filedocumented in this encounter Care Teams Program Or Project Administrator Relationship Specialty Start Date End Date Wesley Em MD PCP - General 09/30/16 12/01/21 documented as of this encounter
--- OUTSIDE RECORDS SUMMARY | 2024-06-18 19:17 | XMS_ITS | Encounter Summary ---
Author Organization [facility] Address [address] [facility] [address] [place] [address] Care Team Providers Care Nurse Rn Bsn Name Role Phone Wesley Em MD Primary Care Provider [phone] Encounter Details Date Type Department Care Team (Late st Contact Info) Description 04/03/2019 Telephone [place] [facility] 2 [facility] [address] [place] [address] Wesley Em MD [address] [place] [address] Social History Tobacco Use Types Packs/Day Years Used Date Smoking Tobacco: Former Smokeless Tobacco: Never Alcohol Use Standard Drinks/Week Comments No 0 (1 standard drink = 0.6 oz pur e alcohol) PHQ-2 Answer Date Recorded PHQ-2 Score 0 02/22/2019 Sex and Gender Information Value Date Recorded Sex Assigned at Not on file Legal Sex Male 6: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 Wesley Em Refer to- Dr. Gadiel Godoy, Plastic Surgeon [facility] Dx- Suspicious skin lesion removal * Telephone Encounter - Fariba Thompson - 04/03/2019 12:37 PM CDT Wesley em ref pt to [facility] plastic surgeon dr godoy dx: suspicious skin lesion removal . thanks documented in this encounter Plan of Treatment Not on file documented as of this encounter Visit Diagnoses Not on filedocumented in this encounter Care Teams Nurse Rn Bsn Relationship Specialty Start Date End Date Wesley Em MD PCP - General 09/30/16 12/01/21 documented as of this encounter
--- OUTSIDE RECORDS SUMMARY | 2024-06-18 19:17 | XMS_ITS | Encounter Summary ---
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
--- OUTSIDE RECORDS SUMMARY | 2024-06-18 19:17 | XMS_ITS | Encounter Summary ---
Author Organization [facility] Address [address] [place] [address] Care Team Providers Care Classified Copy Control Clerk Name Role Phone Wesley Em MD Primary Care Provider [phone] Encounter Details Date Type Department Care Team (Late st Contact Info) Description 02/15/2019 Orders Only [place] [facility] 2 [facility] [address] [place] [address] Wesley Em MD [address] [place] [address] Cigarette smoker Social History Tobacco Use Types Packs/Day Years Used Date Smoking Tobacco: Former Smokeless Tobacco: Never Alcohol Use Standard Drinks/Week Comments No 0 (1 standard drink = 0.6 oz pur e alcohol) Sex and Gender Information Value Date Recorded Sex Assigned at Not on file 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
--- OUTSIDE RECORDS SUMMARY | 2024-06-18 19:17 | XMS_ITS | Encounter Summary ---
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
--- OUTSIDE RECORDS SUMMARY | 2024-06-18 19:17 | XMS_ITS | Encounter Summary ---
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 Source: [facility] [employer]!. Last revised 07-13-2017 us Wesley Em MD LAB MICROBIOLOGY - GENERAL ORD ERABLES Final Result [facility] [address] [address] Department [place] [address] * (ABNORMAL) CBC with auto differential (10/16/2018 [...] MD LAB BLOOD ORDERABLES Final Res ult [facility] [address] [address] Department of Laboratories [place] [id number] * Comprehensive metabolic panel (10/16/2018 8:16 AM CDT) Sodium 142 135 - 145 mmol/L [facility] Potassium, pl 3.8 3.3 - 4.9 mmol/L [facility] Chloride 103 97 - 110 mmol/L [facility] CO2 26 22 - 32 mmol/L [facility] Anion gap 13 2 - 15 mmol/L [facility] BUN 23 8 - 25 mg/dL [facility] Creatinine 1.30 0.80 - 1.30 mg/dL [facility] Glucose 117 70 - 199 mg/dL [facility] Comment: Interpretive Data Fasting glucose >/= 126 [...] LAB BLOOD ORDERABLES Final Res ult [place] [address] [address] Department [place] [address] documented in this encounter Visit Diagnoses Diagnosis [...] hypertension documented in this encounter Care Teams Car Oiler Relationship Specialty Start Date End Date Wesley Em MD PCP - General 09/30/16 12/01/21 documented as of this encounter
--- OUTSIDE RECORDS SUMMARY | 2024-06-18 19:17 | XMS_ITS | Encounter Summary ---
Author Organization [facility] Medical Group Address [address] [address] Care Team Providers Care Customer Support Technician Name Role Phone Wesley Em MD Primary Care Provider [phone] Reason for Referral * Diagnostic Imaging (Routine) - Closed Specialty Diagnoses / Procedures Referred By Contac t Referred To Contact Radiology Diagnoses Chronic bilateral low back pain, with sciatica presence unspecified Procedures MRI Thoracic Spine WO Contrast Wesley Em MD Phone: tel: fax: [address] [address] Referral ID Status Reason Start Date Expiration Date Visits Re quested Visits Authorized [id number] Closed 10/30/2018 05/10/2020 1 1 * Diagnostic Imaging (Routine) - Closed Specialty Diagnoses / Procedures Referred By Contac t Referred To Contact Radiology Diagnoses Personal history of nicotine dependence Tobacco abuse disorder Procedures CT Lung Cancer Screening Wesley Em MD Phone: tel: fax: [address] [phone] Referral ID Status Reason Start Date Expiration Date Visits Re quested Visits Authorized [id number] Closed 10/30/2018 05/10/2020 1 1 Encounter Details Date Type Department Care Team (Late st Contact Info) Description 10/30/2018 Orders Only [place] [facility] [address] [facility] [address] [place] [phone] Wesley Em MD 2 [facility] [address] [place] [address] Tobacco abuse disorder (Primary Dx); Chronic bilateral [...] file Legal 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
--- OUTSIDE RECORDS SUMMARY | 2024-06-18 19:17 | XMS_ITS | Encounter Summary ---
Author Organization [facility] Medical [facility] Address [address] [place] [address] Care Team Providers Care Manager Of Change Name Role Phone Wesley Em MD Primary Care Provider [phone] Reason for Visit * Reason Comments Follow-up Mayo's Encounter Details Date Type Department Care Team (Latest Contact Info) Description 11/15/2018 3:00 PM CDT Office Visit [facility] Gastroenterology at [address] [place] [address] Albert Craft MD [address] [place] [address] [address] [place] [address] Chronic GERD (Primary Dx); 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 Coronary artery disease of [place] artery of [place] heart with stable angina pectoris (CMS/HCC) ??? [...] polyps documented in this encounter Care Teams Manager Of Change Relationship Specialty Start Date End Date Wesley Em MD PCP - General 09/30/16 12/01/21 documented as of this encounter
--- OUTSIDE RECORDS SUMMARY | 2024-06-18 19:17 | XMS_ITS | Encounter Summary ---
Author Organization [facility] Address [address] [facility] [address] [place] [address] Care Team Providers Care Export Freight Manager Name Role Phone Wesley Em MD Primary Care Provider [phone] Encounter Details Date Type Department Care Team (Late st Contact Info) Description 10/16/2018 7:15 AM CDT Lab [place] [facility] [address] [place] [address] [address] [place] [phone] Essential hypertension Social History Tobacco Use Types Packs/Day Years Used Date Smoking Tobacco: Former Smokeless Tobacco: Never Alcohol Use Standard Drinks/Week Comments No 0 (1 standard drink = 0.6 oz pur e alcohol) Sex and Gender Information Value Date Recorded Sex Assigned at Not on file 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
--- OUTSIDE RECORDS SUMMARY | 2024-06-18 19:17 | XMS_ITS | Encounter Summary ---
Author Organization [facility] Healthcare Address [address] [place] [address] Care Team Providers Care Manager Application Name Role Phone Wesley Em MD Primary Care Provider [phone] Encounter Details Date Type Department Care Team (Late st Contact Info) Description 02/13/2019 10:39 AM CDT Hospital Encounter [facility] Simon Bucio MD [address] [facility] [address] [address] Social History Tobacco Use Types Packs/Day Years Used Date Smoking Tobacco: Former Smokeless Tobacco: Never Alcohol Use Standard Drinks/Week Comments No 0 (1 standard drink = 0.6 oz pur e alcohol) Sex and Gender Information Value Date Recorded Sex Assigned at Not on file 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 Age: 73 ?Sex: Male ? MR#: [id number] ?? Loc: ? RADIOLOGY REPORT ?? Order #[id number] ?? Radiology ? Abdomen 1 View ? [...] 9:46 AM ?? T: ? Report ID: [id number] ?? Reading Location: ??[id number] ? REPORT ELECTRONICALLY SIGNED IN OTHER VENDOR SYSTEM ?? Resulting Agency Comment O Procedure Note Ysabel Bauer MD - 02/15/2019 Patient Name: VILLA ZUNIGA Dr: Simon Bucio MD D.O.B: 1945 Exam Date: 02/13/19 1041 Age: 73 Sex: Male MR#: [id number] Loc: RADIOLOGY REPORT Order #[id number] Radiology Abdomen 1 View Signed EXAM DESCRIPTION: [...] Ysabel Bauer M.D. TB T: Report ID: [id number] Reading Location: [id number] REPORT ELECTRONICALLY SIGNED IN OTHER VENDOR SYSTEM Simon Bucio MD IMG XR PROCEDURES Iwona l Result documented in this encounter Visit Diagnoses Not on filedocumented in this encounter Care Teams Manager Application Relationship Specialty Start Date End Date Wesley Em MD PCP - General 09/30/16 12/01/21 documented as of this encounter
--- OUTSIDE RECORDS SUMMARY | 2024-06-18 19:17 | XMS_ITS | Encounter Summary ---
Author Organization [facility] Medical [facility] Address [address] [place] [address] Care Team Providers Care Health Associate Name Role Phone Wesley Em MD Primary Care Provider [phone] Encounter Details Date Type Department Care Team (Late st Contact Info) Description 02/15/2019 Telephone [place] [facility] 2 [facility] [address] [place] [address] Wesley Em MD [address] [place] [address] Social History Tobacco Use Types Packs/Day Years Used Date Smoking Tobacco: Former Smokeless Tobacco: Never Alcohol Use Standard Drinks/Week Comments No 0 (1 standard drink = 0.6 oz pur e alcohol) Sex and Gender Information Value Date Recorded Sex Assigned at Not on file 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
--- OUTSIDE RECORDS SUMMARY | 2024-06-18 19:17 | XMS_ITS | Encounter Summary ---
Author Organization 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
--- OUTSIDE RECORDS SUMMARY | 2024-06-18 19:17 | XMS_ITS | Encounter Summary ---
Author Organization [facility] Address [address] [place] [address] Care Team Providers Care Pile Driver Operator Barge Mounted Name Role Phone Wesley Em MD Primary Care Provider [phone] Reason for Visit * Reason Comments Hypertension GERD Suspicious Skin Lesion Left forearm X 1 month Encounter Details Date Type Department Care Team (Late st Contact Info) Description 04/03/2019 11:15 AM CDT Office Visit [place] [facility] [address] [facility] [address] [place] [address] Wesley Em MD [address] [place] [address] [address] [place] [address] Severe uncontrolled hypertension (Primary Dx); BMI 28.0-28.9,adult; [...] on file 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 male. Chief Complaint Hypertension; GERD; and Suspicious Skin Lesion (Left forearm X 1 month) HPI 73-year-old seen today states he has been under lot of stress his daughter rectus truck and is beendealing with insurance Mr [employer] states he has not been [...] tissue documented in this encounter Care Teams Pile Driver Operator Barge Mounted Relationship Specialty Start Date End Date Wesley Em MD PCP - General 09/30/16 12/01/21 documented as of this encounter
--- OUTSIDE RECORDS SUMMARY | 2024-06-18 19:17 | XMS_ITS | Encounter Summary ---
Author Organization 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
--- OUTSIDE RECORDS SUMMARY | 2024-06-18 19:17 | XMS_ITS | Encounter Summary ---
Author Organization [facility] Medical [facility] Address [address] [facility] [address] [place] [address] Care Team Providers Care Quantitative Consultant Name Role Phone Wesley Em MD Primary Care Provider [phone] Encounter Details Date Type Department Care Team (Late st Contact Info) Description 03/20/2019 Orders Only [place] [facility] [address] [facility] [address] [place] [phone] Wesley Em MD [address] [place] [address] [address] [place] [address] Essential hypertension (Primary Dx); Mixed [...] on file Legal 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 Co de Phone Number [facility] [address] [place] [address] * Magnesium (04/03/2019 11:43 AM CDT) Magnesium 2.1 1.4 - 2.5 mg/dL [facility] Blood specimen (specimen) 04/03/2019 11:43 AM CDT 04/03/2019 6:29 PM CDT Wesley Em MD LAB BLOOD ORDERABLES Final Res ult Performing Organization Address [facility] de Phone Number [facility] [address] [place] [address] * (ABNORMAL) Basic metabolic panel (04/03/2019 11:43 AM CDT) Sodium 143 135 - 145 mmol/L [facility] Potassium, pl 3.7 3.3 - 4.9 mmol/L [facility] Chloride 102 97 - 110 mmol/L [facility] CO2 30 22 - 32 mmol/L [facility] Anion gap 11 2 - 15 mmol/L [facility] BUN 14 8 - 25 mg/dL [facility] Creatinine 1.37(H) 0.80 - 1.30 mg/dL [facility] [...] LAB BLOOD ORDERABLES Final Res ult [facility] [address] [place] [address] documented in this encounter Visit Diagnoses Diagnosis Essential hypertension- Primary Unspecified essential hypertension Mixed hyperlipidemia documented in this encounter Care Teams Quantitative Consultant Relationship Specialty Start Date End Date Wesley Em MD PCP - General 09/30/16 12/01/21 documented as of this encounter
--- OUTSIDE RECORDS SUMMARY | 2024-06-18 19:17 | XMS_ITS | Encounter Summary ---
Author Organization [facility] Healthcare Address [address] [place] [address] Care Team Providers Care Expediter Service Order Name Role Phone Wesley Em MD Primary Care Provider [phone] Encounter Details Date Type Department Care Team (Late st Contact Info) Description 10/16/2018 4:05 PM CDT Lab [address] [address] BPH with urinary obstruction; Type 2 diabetes mellitus with hyperlipidemia (CMS/HCC); Essential hypertension Social History Tobacco Use Types Packs/Day Years Used Date Smoking Tobacco: Former Smokeless Tobacco: Never Alcohol Use Standard Drinks/Week Comments No 0 (1 standard drink = 0.6 oz pur e alcohol) Sex and Gender Information Value Date Recorded Sex Assigned at Not on file 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 Gender Identity Not on file Sexual [...] Results * eGFR (10/16/2018 8:16 AM CDT) [facility] eGFR 55 mL/min/1.7 3 m2 [facility] [...] ORDERABLES Final Res ult Performing Organization Address [facility] Co de Phone Number [facility] [address] [place] [address] * (ABNORMAL) Urinalysis, microscopic only (10/16/2018 8:16 AM CDT) WBC, ur 0-5 0 - 5 /HPF [facility] RBC, ur 3-5(A) 0 - 2 /HPF [facility] Mucous, ur Present(A) [facility] Hyaline casts, ur 1-5 0 - 10 /LPF [facility] Urine, clean voided 10/16/2018 8:16 AM CDT 10/16/2018 4:14 PM CDT Narrative [facility] - 10/16/2018 4:41 PM CDT Wesley Em MD LAB URINE ORDERABLES Final Res ult Performing Organization Address [facility] Co de Phone Number [facility] [address] Department of Laboratories [place], [place] [id number] * Differential, auto (10/16/2018 8:16 AM CDT) Neutrophil abs 4.1 1.7 - 6.5 K/cumm [facility] Imm gran abs 0.0 0.0 - 0.1 K/cumm [facility] Lymphocyte abs 1.2 0.8 - 3.3 K/cumm [facility] Monocyte abs 0.7 0.2 - 0.8 K/cumm [facility] Eosinophil abs 0.3 0.0 - 0.5 K/cumm [facility] Basophil abs 0.1 0.0 - 0.1 K/cumm [facility] Neutrophil pct 64.3 % [facility] Comment: Interpretive Data Percent cell count reference ranges are not reported, since discordance with absolute values may lead to misinterpretation of CBC data. Current Interpretive Data was last revised on 2017. Imm gran pct 0.3 % [facility] Comment: Interpretive Data Percent cell count reference ranges are not reported, since discordance with absolute values may lead to misinterpretation of CBC data. Current Interpretive Data was last revised on 2017. Lymphocyte pct 19.3 % [facility] Comment: Interpretive Data Percent cell count reference ranges are not reported, since discordance with absolute values may lead to misinterpretation of CBC data. Current Interpretive Data was last revised on 2017. Monocyte pct 10.4 % [facility] Comment: Interpretive Data Percent cell count reference ranges are not reported, since discordance with absolute values may lead to misinterpretation of CBC data. Current Interpretive Data was last revised on 2017. Eosinophil pct 4.0 % [facility] Comment: Interpretive Data Percent cell count reference ranges are not reported, since discordance with absolute values may lead to misinterpretation of CBC data. Current Interpretive Data was last revised on 2017. Basophil pct 1.7 % [facility] Comment: Interpretive Data Percent cell count reference ranges are not reported, since discordance with absolute values may lead to misinterpretation of CBC data. Current Interpretive Data was last revised on 2017. Blood specimen (specimen) 10/16/2018 8:16 AM CDT 10/16/2018 4:14 PM CDT Narrative [facility] - 10/16/2018 5:25 PM CDT us Wesley Em MD LAB BLOOD ORDERABLES Final Res ult [facility] [address] [place] [address] * Comprehensive metabolic panel (10/16/2018 8:16 AM [...] BLOOD ORDERABLES Final Res ult [facility] [place] [address] [place] [address] * (ABNORMAL) CBC with auto differential (10/16/2018 8:16 AM CDT) Pathologist [facility] WBC 6.4 3.8 - 9.9 K/cumm CERNER [...] LAB BLOOD ORDERABLES Final Res ult [facility] [address] [place] [address] * (ABNORMAL) Urinalysis reflex to [...] tendency for uric acid stone formation. Source: [employer]. Last revised 07-13-2017 us Wesley Em MD LAB MICROBIOLOGY - GENERAL ORD ERABLES Final Result [facility] [address] [place] [address] * (ABNORMAL) Lipid panel (10/16/2018 8:16 AM [...] LAB BLOOD ORDERABLES Final Res ult [facility] [address] [place] [address] * PSA diagnostic (10/16/2018 8:16 AM CDT) [...] LAB BLOOD ORDERABLES Final Res ult [facility] [address] Department of Laboratories [place] [id number] documented in this encounter Visit Diagnoses Diagnosis BPH with urinary obstruction Hypertrophy of prostate with urinary obstruction and other lower urinary tract symptoms (LUTS) Type 2 diabetes mellitus with hyperlipidemia (HCC) Essential hypertension Unspecified essential hypertension documented in this encounter Care Teams Expediter Service Order Relationship Specialty Start Date End Date Wesley Em MD PCP - General 09/30/16 12/01/21 documented as of this encounter
--- OUTSIDE RECORDS SUMMARY | 2024-06-18 19:17 | XMS_ITS | Encounter Summary ---
Author Organization [facility] Address [address] [place] [address] Care Team Providers Care Knot Bumper Name Role Phone Wesley Em MD Primary Care Provider [phone] Reason for Visit * Reason Comments Medicare Annual Wellness Visit Subsequen t Encounter Details Date Type Department Care Team (Late st Contact Info) Description 10/30/2018 11:30 AM CDT Office Visit [facility] [address] 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
--- OUTSIDE RECORDS SUMMARY | 2024-06-18 19:17 | XMS_ITS | Encounter Summary ---
Author Organization [facility] Healthcare Address [address] [place] [address] Care Team Providers Care Solar Energy Engineer Name Role Phone Wesley Em MD Primary Care Provider [phone] Reason for Referral * Diagnostic Imaging (Routine) - Closed Specialty Diagnoses / Procedures Referred By Contac t Referred To Contact Radiology Diagnoses Personal history of nicotine dependence Tobacco abuse disorder Procedures CT Lung Cancer Screening Wesley Em MD Phone: tel: fax: [address] [phone] Referral ID Status Reason Start Date Expiration Date Visits Re quested Visits Authorized [id number] Closed 10/30/2018 05/10/2020 1 1 Reason for Visit * Diagnostic Imaging (Routine) - Closed Specialty Diagnoses / Procedures Referred By Contdayami villela Referred To Contact Radiology Diagnoses Personal history of nicotine dependence Tobacco abuse disorder Procedures CT Lung Cancer Screening Wesley Em MD Phone: tel: fax: [address] [phone] Referral ID Status Reason Start Date Expiration Date Visits Re quested Visits Authorized [id number] Closed 10/30/2018 05/10/2020 1 1 Encounter Details Date Type Department Care Team (Latest Contact Info) Description 02/14/2019 2:17 PM CDT - 02/14/2019 2:36 PM CDT Hospital Encounter [facility] Imaging and Radiology [address] [place] [address] Wesley Em MD [address] [facility] [address] [place] [address] Personal history of nicotine dependence ; Tobacco [...] file Legal Sex Male 6:00 PM MANAGER GLOBAL Gender Identity Not on file Sexual Orientation [...] disorder documented in this encounter Care Teams Solar Energy Engineer Relationship Specialty Start Date End Date Wesley Em MD PCP - General 09/30/16 12/01/21 documented as of this encounter
--- OUTSIDE RECORDS SUMMARY | 2024-06-18 19:17 | XMS_ITS | Encounter Summary ---
Author Organization [facility] Medical [facility] Address [address] [place] [address] Care Team Providers Care Estimator Lumber Name Role Phone Wesley Em MD Primary Care Provider [phone] Encounter Details Date Type Department Care Team (Late st Contact Info) Description 02/14/2019 Telephone [facility] [address] [address] Wesley Em MD [address] [place] [address] Social History Tobacco Use Types Packs/Day Years Used Date Smoking Tobacco: Former Smokeless Tobacco: Never Alcohol Use Standard Drinks/Week Comments No 0 (1 standard drink = 0.6 oz pur e alcohol) Sex and Gender Information Value Date Recorded Sex Assigned at Not on file Legal Sex Male 6:00 PM LEGAL SERVICES MANAGER Gender Identity Not on file [...] on filedocumented in this encounter Care Teams Estimator Lumber Relationship Specialty Start Date End Date Wesley Em MD PCP - General 09/30/16 12/01/21 documented as of this encounter
--- OUTSIDE RECORDS SUMMARY | 2024-06-18 19:17 | XMS_ITS | Encounter Summary ---
Author Organization [facility] Medical Group Address [address] [place] [address] Care Team Providers Care Veneer Marker Name Role Phone Wesley Em MD Primary Care Provider [phone] Encounter Details Date Type Department Care Team (Late st Contact Info) Description 01/31/2019 Telephone [facility] 2 [facility] [address] [place] [address] Wesley Em MD [address] [place] [address] Social History Tobacco Use Types Packs/Day Years Used Date Smoking Tobacco: Former Smokeless Tobacco: Never Alcohol Use Standard Drinks/Week Comments No 0 (1 standard drink = 0.6 oz pur e alcohol) Sex and Gender Information Value Date Recorded Sex Assigned at Not on file Legal Sex Male 6:00 PM PERSONAL FITNESS TRAINER Gender Identity Not on file Sexual [...] on filedocumented in this encounter Care Teams Veneer Marker Relationship Specialty Start Date End Date Wesley Em MD PCP - General 09/30/16 12/01/21 documented as of this encounter
--- OUTSIDE RECORDS SUMMARY | 2024-06-18 19:17 | XMS_ITS | Encounter Summary ---
Author Organization [facility] Healthcare Address [address] [place] [address] Care Team Providers Care Head Of History Name Role Phone Wesley Em MD Primary Care Provider [phone] Reason for Referral * Diagnostic Imaging (Routine) - Closed Specialty Diagnoses / Procedures Referred By Contac t Referred To Contact Radiology Diagnoses Chronic bilateral low back pain, with sciatica presence unspecified Procedures MRI Thoracic Spine WO Contrast Wesley Em MD Phone: tel: fax: [address] [phone] Referral ID Status Reason Start Date Expiration Date Visits Re quested Visits Authorized [id number] Closed 10/30/2018 05/10/2020 1 1 Reason for Visit * Diagnostic Imaging (Routine) - Closed Specialty Diagnoses / Procedures Referred By Contac t Referred To Contact Radiology Diagnoses Chronic bilateral low back pain, with sciatica presence unspecified Procedures MRI Thoracic Spine WO Contrast Wesley Em MD Phone: tel: fax: [address] [phone] Referral ID Status Reason Start Date Expiration Date Visits Re quested Visits Authorized [id number] Closed 10/30/2018 05/10/2020 1 1 Encounter Details Date Type Department Care Team (Latest Contact Info) Description 02/14/2019 2:37 PM CDT - 02/14/2019 11:59 PM CDT Hospital Encounter [facility] Imaging and Radiology [address] [place] [id number] Wesley Em MD [address] [place] [address] [place] [address] Chronic bilateral low back pain, with sciatica [...] on file Legal Sex Male 6:00 PM MEN'S LOCKER ROOM ATTENDANT Gender Identity Not on file Sexual [...] unspecified documented in this encounter Care Teams Head Of History Relationship Specialty Start Date End Date Wesley Em MD PCP - General 09/30/16 12/01/21 documented as of this encounter
--- OUTSIDE RECORDS SUMMARY | 2024-06-18 19:18 | XMS_ITS | Encounter Summary ---
Author Organization [facility] Medical [facility] Address [address] [place] [address] Care Team Providers Care Speech Lang Path Therapist Name Role Phone Wesley Em MD Primary Care Provider Trey Pinedo MD Unavailable [phone] Encounter Details Date Type Department Care Team (Late st Contact Info) Description 10/18/2017 Orders Only [facility] Health Information Management [address] [place] [address] Scanning, Provider Social History Tobacco Use Types [...] file Legal Sex Male 6:00 PM PRECISION DEVICES INSPECTOR/TESTER Gender Identity Not on file Sexual Orientation [...] on filedocumented in this encounter Care Teams Speech Lang Path Therapist Relationship Specialty Start Date End Date Wesley Em MD PCP - General 09/30/16 12/01/21 Trey Pinedo MD [address] [place] [address] [address] Consulting Physician Neurology 05/09/19 documented as of this encounter
--- OUTSIDE RECORDS SUMMARY | 2024-06-18 19:18 | XMS_ITS | Encounter Summary ---
Author Organization [facility] Healthcare Address [address] [place] [address] Care Team Providers Care Demurrage Agent Name Role Phone Wesley Em MD Primary Care Provider [phone] Encounter Details Date Type Department Care Team (Late st Contact Info) Description 10/11/2018 9:43 AM CDT - 10/11/2018 10:14 AM CDT Hospital Encounter [facility] Simon Bucio MD [facility] [address] [address] Social History Tobacco Use Types Packs/Day Years Used Date Smoking Tobacco: Former Smokeless Tobacco: Never Alcohol Use Standard Drinks/Week Comments No 0 (1 standard drink = 0.6 oz pur e alcohol) Sex and Gender Information Value Date Recorded Sex Assigned at Not on file Legal Sex Male 6:00 PM DIAL POLISHER Gender Identity Not on file Sexual [...] ?? Age: 72 ?Sex: Male ? MR#: [id number] ?? Loc: ? RADIOLOGY REPORT ?? Order #[id number] ?? CT Scan ? CT Abd/Pelvis WO [...] 10:36 AM ?? T: ? Report ID: [id number] ?? Reading Location: ??[id number] ? REPORT ELECTRONICALLY SIGNED IN OTHER VENDOR SYSTEM ?? Resulting Agency Comment O Procedure Note Ysabel Bauer MD - 10/11/2018 Patient Name: VILLA ZUNIGA Dr: Simon Bucio MD D.O.B: 1945 Exam Date: 10/11/18 0000 Age: 72 Sex: Male MR#: [id number] Loc: RADIOLOGY REPORT Order #[id number] CT Scan CT Abd/Pelvis WO IV Contrast [...] Ysabel Bauer M.D. TB T: Report ID: [id number] Reading Location: [id number] REPORT ELECTRONICALLY SIGNED IN OTHER VENDOR SYSTEM us Simon Bucio MD IMG CT PROCEDURES [place] Result documented in this encounter Visit Diagnoses Not on filedocumented in this encounter Care Teams Demurrage Agent Relationship Specialty Start Date End Date Wesley Em MD PCP - General 09/30/16 12/01/21 documented as of this encounter
--- OUTSIDE RECORDS SUMMARY | 2024-06-18 19:18 | XMS_ITS | Encounter Summary ---
Author Organization [facility] Medical Group Address [address] [place] [address] Care Team Providers Care Mushroom Farmer Name Role Phone Wesley Em MD Primary Care Provider [phone] Reason for Visit * Reason Comments Follow-up cellulitis left hand Encounter Details Date Type Department Care Team (Late st Contact Info) Description 08/15/2017 8:15 AM ROLLING UP MACHINE OPERATOR Office Visit [facility] 2 [facility] [address] [place] [address] Sheela Adam NP 2 [facility] [address] [place] [address] Cellulitis of hand, left (Primary Dx); Abrasion [...] on file Legal Sex Male 6:00 PM ROLLING UP MACHINE OPERATOR Gender Identity Not on file Sexual Orientation Straight 01/23/2021 10 :16 PM CDT documented as of this encounter Last Filed Vital Signs Vital Sign Reading Time Taken Comments Blood Pressure 158/80 08/15/2017 8:18 AM ROLLING UP MACHINE OPERATOR Pulse 60 08/15/2017 8:18 AM ROLLING UP MACHINE OPERATOR Temperature 36.5 ??C (97.7 ??F) 08/15/2017 8:18 AM CS T Respiratory Rate 20 08/15/2017 8:18 AM ROLLING UP MACHINE OPERATOR Oxygen Saturation - - Inhaled Oxygen Concentration - - Weight 88 kg (194 lb) 08/15/2017 8:18 AM ROLLING UP MACHINE OPERATOR Height 175.3 cm (5' 9.02 ) 08/15/2017 8:18 AM CS T Body Mass Index 28.64 08/15/2017 8:18 AM ROLLING UP MACHINE OPERATOR documented in this encounter Progress Notes * Sheela Adam, GLASS DRILLER - 08/15/2017 8:15 AM CST Subjective/Objective Patient ID: Villa Zuniga is a 71 y.o. male. Chief Complaint Follow-up (cellulitis left hand) Patient presents to the office today for follow-up. He is accompanied by his . [facility] room on August 12, 2017. Patient [...] NP *This office note was completed using [employer] search engine optimization specialist neisha and may be subject to search engine optimization specialist errors* Cosigned by Wesley Em MD at 08/15/2017 12:10 PM ROLLING UP MACHINE OPERATOR ING UP MACHINE OPERATOR ING UP MACHINE OPERATOR documented in this encounter Miscellaneous Notes [...] in agreement with the plan of care. ING UP MACHINE OPERATOR * Assessment & Plan Note - Sheela [...] change in or worsening of his condition. ING UP MACHINE OPERATOR documented in this encounter Plan of Treatment Not on file documented as of this encounter Visit Diagnoses Diagnosis Cellulitis of hand, left- Primary Abrasion of hand, unspecified laterality, subsequent encounter BMI 28.0-28.9,adult documented in this encounter Care Teams Mushroom Farmer Relationship Specialty Start Date End Date Wesley Em MD PCP - General 09/30/16 12/01/21 documented as of this encounter
--- OUTSIDE RECORDS SUMMARY | 2024-06-18 19:18 | XMS_ITS | Encounter Summary ---
Author Organization [facility] Address [address] [place] [address] Phone Care Team Providers Care Justowriter Operator Name Role Phone Wesley Em MD Primary Care Provider [phone] Tiny Ferreira MA Unavailable Trey Pinedo MD Unavailable [phone] Dorinda ChavezW Unavailable [phone] Christine Herzog MD Primary Care Provide r Albert Craft MD Unavailable [phone] Chintan Figueroa MD Unavailable [phone] Jameel Bloom DPM Unavailable [phone] Gadiel Genao MD Unavailable [phone] Sepideh Hi RN Unavailable [phone] Lexii Arnold MA Unavailable [phone] Walker CarvajalW Unavailable Unavailabl e Encounter Details Date Type Department Care Team (Late st Contact Info) Description 07/07/2017 Orders Only [facility] Provider, MD [facility] [place] [address] Social History Tobacco Use Types Packs/Day Years Used Date Smoking Tobacco: Former Smokeless Tobacco: Never Alcohol Use Standard Drinks/Week Comments No 0 (1 standard drink = 0.6 oz pur e alcohol) Sex and Gender Information Value Date Recorded Sex Assigned at Not on file Legal Sex Male 6:00 PM MIXING TANK OPERATOR Gender Identity Not on file Sexual Orientation Straight 01/23/2021 10 :16 PM CDT documented as of this encounter Plan of Treatment Not on file documented as of this encounter Procedures Procedure Name Priority Date/Time Associated Diagnosis Comments DISCHARGE LABORATORY CUMULATIVE REPORT 07/07/2017 12:00 AM MIXING TANK OPERATOR documented in this encounter Results * DISCHARGE LABORATORY CUMULATIVE REPORT (07/07/2017 12:00 AM MIXING TANK OPERATOR) Narrative 07/07/2017 12:00 AM MIXING TANK OPERATOR Ordered by an unspecified provider. us Historical Provider LAB BLOOD ORDERABLES [place] l Result documented in this encounter Visit Diagnoses Not on filedocumented in this encounter Additional Health Concerns Infection Onset Date Last Indicated Resolved Time COVID: Suspected 12/08/2021 12/08/2021 12/08/2021 11:03 PM CDT COVID: Suspected 08/06/2022 08/06/2022 08/06/2022 1:19 AM MIXING TANK OPERATOR COVID19 Comment:Airborne + Contact precautions. Gown, Gloves, N95, eye protection or goggles. Precautions 08/16/22. Contact Lumber Straightener if patient worsens. SUE Baldwin 08/12/22 08/06/2022 08/06/2022 08/16/2022 3:[address] Coronavirus, contact + dropl et Comment:Negative for coronavirus 08/06/2022 08/06/2022 023 12:29 PM MIXING TANK OPERATOR COVID: Recovered Comment:Added based on recent COVID infection. 08/16/2022 08/17/2022 11/14/2022 3:05 AM C DT documented as of this encounter Care Teams Justowriter Operator Relationship Specialty Start Date End Date Wesley Em MD PCP - General 3/31/17 6/1/22 Christine Herzog MD [address] [facility] [facility] [address] [place] [address] PCP - General Internal Medicine 12/02/21 Tiny Ferreira MA [address] [place] [address] ACO Care Neuropathologist 09/19/17 09/27/17 Trey Pinedo MD [address] [facility] [address] [place] [address] Consulting Physician Neurology 05/09/19 Dorinda Chavez LCSW [address] [facility] [address] [place] [address] Die Set Up Worker 12/30/20 01/26/21 Albert Craft MD [address] [facility] [address] [place] [address] Consulting Physician Gastroenterology 03/11/22 Chintan Figueroa MD [address] [facility] [address] [place] [address] Consulting Physician Hematology and Oncology 03/11/22 Jameel Bloom DPM [address] [place] [address] Consulting Physician Orthotics 03/11/22 Gadiel Genao MD [address] [place] [address] Surgeon Vascular Surgery 03/11/22 Sepideh Hi RN [address] [place] [address] [address] [place] [address] Tow Motor Mechanic 08/12/22 09/01/22 Lexii Arnold MA [address] [place] [address] [address] [place] [address] ACO Care Neuropathologist 09/19/22 09/20/22 Walker Carvajal LCSW [address] [place] [address] [address] [place] [address] Die Set Up Worker 09/27/22 09/27/22 documented as of this encounter
--- OUTSIDE RECORDS SUMMARY | 2024-06-18 19:18 | XMS_ITS | Encounter Summary ---
Author Organization [facility] Address [address] [place] [address] Care Team Providers Care Handbag Finisher Name Role Phone Wesley Em MD Primary Care Provider [phone] Encounter Details Date Type Department Care Team (Late st Contact Info) Description 04/05/2018 Orders Only [facility] [address] [facility] [address] [place] [phone] Wesley Em MD [address] [place] [address] [address] [place] [address] Essential hypertension (Primary Dx); Type 2 diabetes mellitus with hyperlipidemia ([facility]/HCC) Social History Tobacco Use Types Packs/Day Years Used Date Smoking Tobacco: Former Smokeless Tobacco: Never Alcohol Use Standard Drinks/Week Comments No 0 (1 standard drink = 0.6 oz pur e alcohol) Sex and Gender Information Value Date Recorded Sex Assigned at Not on file Legal Sex Male 6:00 PM POLICY SERVICE COORDINATOR Gender Identity Not on file Sexual [...] AM CDT 04/09/2018 6:56 PM CDT N[facility]ative [facility] 04/09/2018 7:19 PM CDT Wesley Em MD LAB BLOOD ORDERABLES Final Res ult Performing Organization Address [facility] de Phone Number RUBENS GANT [address] [facility] [employer] [place], [place] [id number] * Hemoglobin A1c (04/09/2018 8:27 AM CDT) Hgb A1C 6.0 4.0 - 6.0 % [facility] Comment: Interpretive Data Hemoglobin A1c ADA Interpretive Guidelines ??<7% ?? Glycemia controlled ??>8% ?? Hyperglycemia, additional action recommended Estrada Immunochemical Method Current interpretive data was last revised on 2015 Testing performed by: [facility], [place] [address] Estimated Average Glucose 126 mg/dL [facility] Comment:Testing performed by : [facility], [place] [address] Blood specimen (specimen) 04/09/2018 8:27 AM CDT 04/10/2018 8:17 AM CDT Narrative [facility] - 04/10/2018 12:17 PM CDT us Wesley Em MD LAB BLOOD ORDERABLES Final Res ult Performing Organization Address [facility] de Phone Number RUBENS [address] [facility] [place] [address] * Basic metabolic panel (04/09/2018 8:27 AM CDT) Sodium 141 135 - 145 mmol/L CERNER Potassium, pl 3.5 3.5 - 5.1 mmol/L [facility] Chloride 105 100 - 114 mmol/L [facility] CO2 28 22 - 32 mmol/L [facility] Anion gap 12 8 - 16 mmol/L [facility] BUN 11 8 - 24 mg/dL [facility] Creatinine 1.16 0.70 - 1.40 mg/dL [facility] Glucose 117 70 - 199 mg/dL [facility] Comment: Interpretive Data Fasting glucose >/= [...] LAB BLOOD ORDERABLES Final Res ult RUBENS [address] [place] [address] documented in this encounter Visit Diagnoses Diagnosis Essential hypertension- Primary Unspecified essential hypertension Type 2 diabetes mellitus with hyperlipidemia (HCC) Essential hypertension Unspecified essential hypertension Type 2 diabetes mellitus with hyperlipidemia (HCC) documented in this encounter Care Teams Handbag Finisher Relationship Specialty Start Date End Date Wesley Em MD PCP - General 09/30/16 12/01/21 documented as of this encounter
--- OUTSIDE RECORDS SUMMARY | 2024-06-18 19:18 | XMS_ITS | Encounter Summary ---
Author Organization [facility] Address [address] [place] [address] Care Team Providers Care Product Inspection Coordinator Name Role Phone Wesley Em MD Primary Care Provider [phone] Encounter Details Date Type Department Care Team (Late st Contact Info) Description 09/23/2018 Orders Only [facility] [address] [place] [address] Wesley Em MD [address] [place], [place] [id number] Social History Tobacco Use Types Packs/Day Years Used Date Smoking Tobacco: Former Smokeless Tobacco: Never Alcohol Use Standard Drinks/Week Comments No 0 (1 standard drink = 0.6 oz pur e alcohol) Sex and Gender Information Value Date Recorded Sex Assigned at Not on file Legal Sex Male 6:00 PM TELEPHONE QUOTATION CLERK Gender Identity Not on file Sexual [...] on filedocumented in this encounter Care Teams Product Inspection Coordinator Relationship Specialty Start Date End Date Wesley Em MD PCP - General 09/30/16 12/01/21 documented as of this encounter
--- OUTSIDE RECORDS SUMMARY | 2024-06-18 19:18 | XMS_ITS | Encounter Summary ---
Author Organization [facility] Address [address] [place] [address] Care Team Providers Care Flat Locker Name Role Phone Wesley Em MD Primary Care Provider Encounter Details Date Type Department Care Team (Late st Contact Info) Description 07/07/2017 8:00 PM CUSHION PADDER Lab [address] [address] Polycythemia Social History Tobacco Use Types Packs/Day Years Used Date Smoking Tobacco: Former Smokeless Tobacco: Never Alcohol Use Standard Drinks/Week Comments No 0 (1 standard drink = 0.6 oz pur e alcohol) Sex and Gender Information Value Date Recorded Sex Assigned at Not on file Legal Sex Male 6:00 PM CUSHION PADDER Gender Identity Not on file Sexual Orientation Straight 01/23/2021 10 :16 PM CDT documented as of this encounter Plan of Treatment Not on file documented as of this encounter Procedures Procedure Name Priority Date/Time Associated Diagnosis Comments DIFFERENTIAL AUTO Routine 07/07/2017 3:4 1 PM CUSHION PADDER Polycythemia CBC WITH AUTO DIFFERENTIAL Routine 07/07/2017 3:41 PM CUSHION PADDER Polycythemia documented in this encounter Results * (ABNORMAL) Differential, auto (07/07/2017 3:41 PM CUSHION PADDER) Neutrophil pct 69.4 % CERNER CH Imm [...] CH Blood specimen (specimen) 07/07/2017 3:41 PM CUSHION PADDER 07/07/2017 7:59 PM CUSHION PADDER Narrative [facility] CH - 07/07/2017 8:37 PM CUSHION PADDER Sheela Adam NP LAB BLOOD ORDERABLE S Final Result [facility] [address] Department [place] [address] * (ABNORMAL) CBC with auto differential (07/07/2017 3:41 PM CUSHION PADDER) WBC 7.93 3.80 - 9.90 K/cumm CERNER [...] NRBC abs 0.00 0.00 - 0.01 K/cumm [facility] Blood specimen (specimen) 07/07/2017 3:41 PM CUSHION PADDER 07/07/2017 7:59 PM CUSHION PADDER Narrative [facility] - 07/07/2017 8:37 PM CUSHION PADDER Sheela Adam NP LAB BLOOD ORDERABLE S Final Result [facility] [address] Department [place] [address] documented in this encounter Visit Diagnoses Diagnosis Polycythemia Polycythemia, secondary documented in this encounter Care Teams Flat Locker Relationship Specialty Start Date End Date Wesley Em MD PCP - General 09/30/16 12/01/21 documented as of this encounter
--- OUTSIDE RECORDS SUMMARY | 2024-06-18 19:18 | XMS_ITS | Encounter Summary ---
Author Organization [facility] Address [address] [place] [address] Phone Care Team Providers Care Refuge Manager Name Role Phone Wesley Em MD Primary Care Provider Trey Pinedo MD Unavailable [phone] Dorinda ChavezW Unavailable Christine Herzog MD Primary Care Provide r Albert Craft MD Unavailable [phone] Chintan Figueroa MD Unavailable [phone] Jameel Bloom DPM Unavailable [phone] Gadiel Genao MD Unavailable [phone] Sepideh Hi RN Unavailable [phone] Lexii Arnold MA Unavailable [phone] Walker Carvajal LCSW Unavailable Unavailabl e Encounter Details Date Type Department Care Team (Late st Contact Info) Description 10/06/2017 Orders Only [facility] Provider, MD [address] [place] [address] Social History Tobacco Use Types Packs/Day Years Used Date Smoking Tobacco: Former Smokeless Tobacco: Never Alcohol Use Standard Drinks/Week Comments No 0 (1 standard drink = 0.6 oz pur e alcohol) Sex and Gender Information Value Date Recorded Sex Assigned at Not on file Legal Sex Male 6:00 PM PHOTO BOOTH OPERATOR Gender Identity Not on file Sexual [...] COVID: Suspected 08/06/2022 08/06/2022 08/06/2022 1:19 AM PHOTO BOOTH OPERATOR COVID19 Comment:Airborne + Contact precautions. Gown, Gloves, N95, eye protection or goggles. Precautions 08/16/22. Contact Stock Speculator if patient worsens. SUE Baldwin 08/12/22 08/06/2022 08/06/2022 08/16/2022 3:[address] Coronavirus, contact + dropl et Comment:Negative for coronavirus 08/06/2022 08/06/2022 023 12:29 PM PHOTO BOOTH OPERATOR COVID: Recovered Comment:Added based on recent COVID infection. 08/16/2022 08/17/2022 11/14/2022 3:05 AM C DT documented as of this encounter Care Teams Refuge Manager Relationship Specialty Start Date End Date Wesley Em MD PCP - General 09/30/16 12/01/21 Christine Herzog MD [address] [place] [address] PCP - General Internal Medicine 12/02/21 Trey Pinedo MD [address] [place] [address] Consulting Physician Neurology 05/09/19 Dorinda Chavez, WHEEL TRUING MACHINE TENDER[address] [place] [address] Borough Coordinator 12/30/20 01/26/21 Albert Craft MD [address] [place] [address] Consulting Physician Gastroenterology 03/11/22 Chintan Figueroa MD [address] [place] [address] Consulting Physician Hematology and Oncology 03/11/22 Jameel Bloom DPM [address] [place] [address] Consulting Physician Orthotics 03/11/22 Gadiel Genao MD [address] [place] [address] Surgeon Vascular Surgery 03/11/22 Sepideh Hi, SUE [address] [place] [address] [address] [place] [address] Color Worker 08/12/22 09/01/22 Lexii Arnold MA [address] [place] [address] ACO Care Data Warehousing Engineer 09/19/22 09/20/22 Walker Carvajal LCSW [address] [place] [address] Borough Coordinator 09/27/22 09/27/22 documented as of this encounter
--- OUTSIDE RECORDS SUMMARY | 2024-06-18 19:18 | XMS_ITS | Encounter Summary ---
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 The Pediatric Colonoscope PCF-H190L [id number] was introduced through the anus and advanced [...] hemorrhoids were medium-sized. Electronically signed by Albert Crfat M.D. Albert Craft MD 01/09/2018 9:27:27 AM Number of Addenda: 0 Note Initiated On: 01/09/2018 8:46 AM Procedure Code(s): --- Professional --- 34793, Colonoscopy, flexible; with removal of tumor(s), polyp(s), or other lesion(s) by snare technique 53649, 59, Colonoscopy, flexible; with biopsy, single or multiple Diagnosis Code(s): --- Professional --- Z12.11, Encounter for screening for malignant neoplasm of colon D12.0, Benign neoplasm of cecum D12.2, Benign neoplasm of ascending colon D12.4, Benign neoplasm of descending colon K64.8, Other hemorrhoids CPT copyright 2017 [employer]. All rights reserved. The codes documented in this report are preliminary and upon radiology manager review may be revised to meet current compliance requirements. Recognized by the [employer] for promoting quality [...] results best viewed via link to PDF [facility] Department of Pathology [address] [place], [place] [id number] Final Report Patient Name: ??VILLA ALSTON SR Address: [address] ??[place], [place] [address] Gender: ??M : ??1945 (Age: 72) Service: ??Gastro Location: ??[facility] Hospital #: ??[id number] Patient Type: ??[facility] Accession # ?[id number] Taken: ??01/09/2018 Received: ??01/09/2018 Accessioned: ??01/09/2018 Reported: [...] determined by the Surgical Pathology Department at [facility] as part of an ongoing software quality engineer program and in compliance with federally [...] characteristics determined by the Surgical Pathology Department [facility]. ??It has not been cleared or approved by the U. S. Food and Drug Administration. us Albert Craft MD LAB PATHOLOGY ORDERABLES F inal Result * COLONOSCOPY (01/09/2018 8:46 AM CDT) Anatomical Region Laterality Modality Other Narrative Procedure Note Albert Craft MD - 01/09/2018 8:46 AM CDT [facility] Patient Name: Villa Alston Procedure Date: 01/09/2018 8:46 AM Date of : 1945 Admit Type: Outpatient Age: 72 Gender: Male Attending MD: Albert Craft MD Room: [facility] Note Status: Finalized Patient Profile: [...] passed under direct vision.The Pediatric Colonoscope PCF-H190L [id number] was introduced through the anus and advanced [...] 8:46 AM Procedure Code(s): --- Professional --- 68143, Colonoscopy, flexible; with removal of tumor(s), polyp(s), or other lesion(s) by snare technique 12998, 59, Colonoscopy, flexible; with biopsy, single or multiple Diagnosis Code(s): --- Professional --- Z12.11, Encounter for screening for malignant neoplasm of colon D12.0, Benign neoplasm of cecum D12.2, Benign neoplasm of ascending colon D12.4, Benign neoplasm of descending colon K64.8, Other hemorrhoids CPT copyright 2017 [employer]. All rights reserved. The codes documented in this report are preliminary and upon radiology manager reviewmay be revised to meet current compliance requirements. Recognized by the [employer] for promoting quality [...] 01/09/2018 documented in this encounter Care Teams Valuation Manager Relationship Specialty Start Date End Date Wesley Em MD PCP - General 09/30/16 12/01/21 documented as of this encounter
--- OUTSIDE RECORDS SUMMARY | 2024-06-18 19:18 | XMS_ITS | Encounter Summary ---
Author Organization [facility] Healthcare Address [address] [place] [address] Care Team Providers Care Retail Route Supervisor Name Role Phone Wesley Em MD Primary Care Provider Encounter Details Date Type Department Care Team (Latest Contact Info) Description 10/04/2017 1:37 PM CDT Hospital Encounter 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 NC: RUTH Report ID: [id number] Reading Location: [id number] [EOD] us Simon Bucio MD IMG XR PROCEDURES Iwona l Result documented in this encounter Visit Diagnoses Diagnosis Calculus of kidney documented in this encounter Care Teams Retail Route Supervisor Relationship Specialty Start Date End Date Wesley Em MD PCP - General 09/30/16 12/01/21 documented as of this encounter
--- OUTSIDE RECORDS SUMMARY | 2024-06-18 19:18 | XMS_ITS | Encounter Summary ---
Author Organization [facility] Address [address] [address] Care Team Providers Care Wafer Cleaner Name Role Phone Wesley Em MD Primary Care Provider [phone] Encounter Details Date Type Department Care Team (Late st Contact Info) Description 08/07/2017 Telephone [place] [facility] [address] [facility] [address] [place] [address] Wesley Em MD [address] [place] [address] Social History Tobacco Use Types Packs/Day Years Used Date Smoking Tobacco: Former Smokeless Tobacco: Never Alcohol Use Standard Drinks/Week Comments No 0 (1 standard drink = 0.6 oz pur e alcohol) Sex and Gender Information Value Date Recorded Sex Assigned at Not on file 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 Gender Identity Not on file Sexual Orientation Straight 01/23/2021 10 :16 PM CDT documented as of this encounter Miscellaneous Notes * Telephone Encounter - Ana Marques - 08/07/2017 4:16 PM CST Order placed, scheduling will contact him E ROUGHER * Telephone Encounter - Araseli Mckeon MA - 08/07/2017 4:11 PM CST Referrals E ROUGHER * Telephone Encounter - Wesley Em MD - 08/07/2017 4:07 PM CST Schedule low-dose CT scan of chest at [facility] diagnosis greater than 40 pack year history of smoking lung cancer screening E ROUGHER * Telephone Encounter - Araseli Mckeon MA - 08/07/2017 3:17 PM CST JR E ROUGHER * Telephone Encounter - Shaun Mercedes MA - 08/07/2017 3:12 PM CST JR wanted PT to get a CT of the chest w/o contrast (he ordered it 12/26/16) calling PT tracking theorder and he states he doesn't remember JR even ordering it so he does not wish to get it at this time. Ok to stop tracking? E ROUGHER documented in this encounter Plan of Treatment Not on file documented as of this encounter Visit Diagnoses Not on filedocumented in this encounter Care Teams Wafer Cleaner Relationship Specialty Start Date End Date Wesley Em MD PCP - General 09/30/16 12/01/21 documented as of this encounter
--- OUTSIDE RECORDS SUMMARY | 2024-06-18 19:18 | XMS_ITS | Encounter Summary ---
Author Organization [facility] Healthcare Address [address] [place] [address] Care Team Providers Care Crib Attendant Name Role Phone Wesley Em MD Primary Care Provider [phone] Encounter Details Date Type Department Care Team (Late st Contact Info) Description 09/05/2017 8:15 AM NURSE ANESTHETIST Anesthesia Event [address] [address] [place] [address] [address] Anesthesia Record Procedure Summary Procedure Name Responsible [...] file Legal Sex Male 6:00 PM NURSE ANESTHETIST Gender Identity Not on file Sexual Orientation Straight 01/23/2021 10 :16 PM CDT documented as of this encounter OR Notes * Anesthesia Postprocedure Evaluation - Katy Richard MD - 09/05/2017 8:37 AM CST Patient: Villa Zuniga Procedure Summary Date: 09/05/17 Room / Location: [facility] / [facility] Anesthesia Start: 814 Anesthesia Stop: 823 [...] acceptable Pt is: normothermic Nausea/Vomiting status: none E ANESTHETIST * Anesthesia Preprocedure Evaluation - Katy Richard [...] urinary obstruction ??? 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 Essential hypertension [...] Informed Consent: Discussed plan with attending and IMPORT EXPORT COORDINATOR. Anesthesia plan and risks discussed with patient. Consent and Attending signature: I and/or my designee have discussed the anesthesia plan, benefits, possible alternatives, parental presence at time of induction (if indicated), and clinically relevant risks that may include dental injury, unintentional awareness, and/or other complications. The patient and/or parent/legal guardian understand, and agree to proceed. All questions answered. E ANESTHETIST documented in this encounter Plan of Treatment Not on file documented as of this encounter Visit Diagnoses Not on filedocumented in this encounter Administered Medications Inactive Administered Medications - up to 3 most recent administrations Medication Order MAR Action Action Date Dose Rate Site Lactated Ringer's (LR) infusion intravenous, Continuous PRN, Starting on Mon09/05/17 at 0818, Anesthesia Intra-op New Bag 09/05/2017 8:18 AM NURSE ANESTHETIST 100 m L/hr lidocaine (cardiac) (XYLOCAINE) preservative free injection intravenous, As needed, Starting on Mon09/05/17 at 0815, Anesthesia Intra-op, Indications: Ventricular ArrhythmiasIndications:Ventric ular Arrhythmias Given 09/05/2017 8:15 AM NURSE ANESTHETIST 40 mg propofol (DIPRIVAN) IV intravenous, As needed, Starting on Mon09/05/17 at 0815, Anesthesia Intra-op Given 09/05/2017 8:20 AM NURSE ANESTHETIST 40 mg Given 09/05/2017 8:15 AM NURSE ANESTHETIST 100 mg documented in this encounter Care Teams Crib Attendant Relationship Specialty Start Date End Date Wesley Em MD PCP - General 09/30/16 12/01/21 documented as of this encounter
--- OUTSIDE RECORDS SUMMARY | 2024-06-18 19:18 | XMS_ITS | Encounter Summary ---
Author Organization [facility] Address [address] [place] [address] Care Team Providers Care Spindle Repairer Name Role Phone Wesley Em MD Primary Care Provider [phone] Encounter Details Date Type Department Care Team (Late st Contact Info) Description 09/24/2018 4:02 PM CDT - 09/24/2018 11:59 PM CDT Hospital Encounter [facility] INTERIM Simon Bucio MD [facility] [place] [address] [address] Discharge Disposition: Discharge to home or self care Social History Tobacco Use Types Packs/Day Years Used Date Smoking Tobacco: Former Smokeless Tobacco: Never Alcohol Use Standard Drinks/Week Comments No 0 (1 standard drink = 0.6 oz pur e alcohol) Sex and Gender Information Value Date Recorded Sex Assigned at Not on file 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 Gender Identity Not on file Sexual Orientation [...] AM - Electronically signed by Wade ESPOSITO D: ??09/25/2018 8:31 AM T: Report ID: [id number] Reading Location: ??[id number] [EOD] Narrative 09/25/2018 8:34 AM CDT EXAM [...] regional included bones on the exam show muet-lz-hwepolwp degenerative changes at the dorsal spine and [...] regional included bones on the exam show wqhd-di-[id number] degenerative changes at the dorsal spine and [...] signed by Wade ESPOSITO T: Report ID: [id number] Reading Location: [place] [address] [EOD] Simon Bucio MD IMG XR PROCEDURES Iwona l Result documented in this encounter Visit Diagnoses Not on filedocumented in this encounter Care Teams Spindle Repairer Relationship Specialty Start Date End Date Wesley Em MD PCP - General 09/30/16 12/01/21 documented as of this encounter
--- OUTSIDE RECORDS SUMMARY | 2024-06-18 19:18 | XMS_ITS | Encounter Summary ---
Author Organization [facility] Medical Group Address [address] [facility] [address] [place] [address] Care Team Providers Care Air Table Operator Name Role Phone Wesley Em MD Primary Care Provider [phone] Encounter Details Date Type Department Care Team (Late st Contact Info) Description 10/06/2017 7:15 AM CDT Lab [facility] [address] [place] [address] [address] [place] [id number] Type 2 diabetes mellitus without complication, without long-term current use of insulin (CMS/HCC) Social History Tobacco Use Types Packs/Day Years Used Date Smoking Tobacco: Former Smokeless Tobacco: Never Alcohol Use Standard Drinks/Week Comments No 0 (1 standard drink = 0.6 oz pur e alcohol) Sex and Gender Information Value Date Recorded Sex Assigned at Not on file 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
--- OUTSIDE RECORDS SUMMARY | 2024-06-18 19:18 | XMS_ITS | Encounter Summary ---
Author Organization [facility] Medical Group Address [address] [facility] [address] [place] [address] Care Team Providers Care Inside Sales Territory Manager Name Role Phone Wesley Em MD Primary Care Provider [phone] Encounter Details Date Type Department Care Team (Late st Contact Info) Description 10/02/2017 Telephone [facility] [address] [address] Wesley Em MD [address] [place] [address] Social History Tobacco Use Types Packs/Day Years Used Date Smoking Tobacco: Former Smokeless Tobacco: Never Alcohol Use Standard Drinks/Week Comments No 0 (1 standard drink = 0.6 oz pur e alcohol) Sex and Gender Information Value Date Recorded Sex Assigned at Not on file 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
--- OUTSIDE RECORDS SUMMARY | 2024-06-18 19:18 | XMS_ITS | Encounter Summary ---
Author Organization [facility] Healthcare Address [address] [place] [address] Care Team Providers Care Heavy Equipment Sales Associate Name Role Phone Wesley Em MD Primary Care Provider [phone] Encounter Details Date Type Department Care Team (Latest Contact Info) Description 09/05/2017 8:00 AM MASTER BREWER - 09/05/2017 8:45 AM MASTER BREWER Surgery [address] [address] Albert Craft MD [address] [place], [place] [id number] ESOPHAGOGASTRODUODENOSCOPY BIOPSY Surgery Details Date/Time Status Location [...] on file Legal Sex Male 6:00 PM MASTER BREWER Gender Identity Not on file Sexual Orientation Straight 01/23/2021 10 :16 PM CDT documented as of this encounter Last Filed Vital Signs Vital Sign Reading Time Taken Comments Blood Pressure 158/70 09/05/2017 8:35 AM MASTER BREWER Pulse 70 09/05/2017 8:35 AM MASTER BREWER Temperature 36.1 ??C (96.9 ??F) 09/05/2017 7:08 AM CS T Respiratory Rate 20 09/05/2017 8:35 AM MASTER BREWER Oxygen Saturation 99% 09/05/2017 8:35 AM MASTER BREWER Inhaled Oxygen Concentration - - Weight 87.5 kg (193 lb) 09/05/2017 7:11 AM MASTER BREWER Height 175.3 cm (5' 9 ) 09/05/2017 7:11 AM MASTER BREWER Body Mass Index 28.5 09/05/2017 7:11 AM MASTER BREWER documented in this encounter Medications at Time [...] GI PLAN/RECOMMENDATIONS: 1. EGD Albert Craft MD ER BREWER documented in this encounter Procedure Notes * Albert Craft MD - 09/05/2017 8:13 AM CSTAssociated Order(s): EGD [facility] Patient Name: Verna Alston Procedure Date: 09/05/2017 8:13 AM Date of : 1945 Admit Type: Outpatient Age: 71 Gender: Male Attending MD: Albert Craft MD Room: [facility] CAP[facility] Note Status: Finalized Patient Profile: [...] passed under direct vision. 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 All rights reserved. The codes documented in this report are preliminary and upon claims director review may be revised to meet current compliance requirements. Recognized by the [employer] for promoting quality in endoscopy ER BREWER documented in this encounter Plan of Treatment Not on file documented as of this encounter Procedures Procedure Name Priority Date/Time Associated Diagnosis Comments SURGICAL PATHOLOGY Routine 09/05/2017 10:19 AM MASTER BREWER EGD 09/05/2017 8:13 AM MASTER BREWER ESOPHAGOGASTRODUODENOSCOPY BIOPSY 09/05/2017 8:12 AM MASTER BREWER BARRETTS GLUCOSE POC Routine 09/05/2017 7:40 AM MASTER BREWER DISCHARGE LABORATORY CUMULAT SONG REPORT 09/05/2017 12:00 AM MASTER BREWER SURGICAL PATHOLOGY 09/05/2017 12:00 AM MASTER BREWER documented in this encounter Results * Surgical pathology (09/05/2017 10:19 AM MASTER BREWER) 09/05/2017 10:1 9 AM MASTER BREWER 09/05/2017 10:19 AM MASTER BREWER Narrative 09/06/2017 2:22 PM MASTER BREWER [facility] Department of Pathology [address] [place] [address] Final Report ?Patient Name: VERNA ALSTON Address: [address] Service: Gastro ??[place], [place] [address] Location: [place] Taken: 09/05/2017 Gender: M Received 09/05/2017 : 1945 (Age: 71) [facility] #: [id number] Accessioned: 09/05/2017 ?? Patient Type: AMH SDS [...] determined by the Surgical Pathology Department at [facility] as part of an ongoing quality compliance manager program and in compliance with federally mandated [...] determined by the Surgical Pathology Department [facility]. ??It has not been cleared or approved by the U. S. Food and Drug Administration. Albert Craft MD LAB PATHOLOGY ORDERABLES F inal Result * EGD (09/05/2017 8:13 AM MASTER BREWER) Anatomical Region Laterality Modality Other Narrative Procedure Note Albert Craft MD - 09/05/2017 8:13 AM CST [facility] Patient Name: Verna Alston Procedure Date: 09/05/2017 8:13 AM Date of : 1945 Admit Type: Outpatient Age: 71 Gender: Male Attending MD: Albert Craft MD Room: [facility] Note Status: Finalized Patient Profile: [...] was passed under direct vision.The Endoscope GIF-[id number] was introduced throughthe mouth, and advanced to [...] 8:13 AM Procedure Code(s): --- Professional --- 24326, Esophagogastroduodenoscopy, flexible, transoral; with biopsy, single or multiple Diagnosis Code(s): --- Professional --- K22.70, 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 All rights reserved. The codes documented in this report are preliminary and upon claims director reviewmay be revised to meet current compliance requirements. Recognized by the [employer] for promoting quality in endoscopy Albert Craft MD ENDOSCOPY PROCEDURES Final Result * (ABNORMAL) Glucose POC (09/05/2017 7:40 AM MASTER BREWER) Glucose, POC 109(H) 71 - 98 mg/dL [facility] CARMICHAEL (VIDALIA) Blood specimen (specimen) 09/05/2017 7:40 AM MASTER BREWER 09/05/2017 7:40 AM MASTER BREWER Narrative RUBENS CARMICHAEL (BETTY) - 09/05/2017 7:46 AM MASTER BREWER Albert Craft MD POINT OF CARE TEST ORDERAB LES Final Result RUBENS CARMICHAEL (VIDALIA) 1 [facility] Department [place] [address] * DISCHARGE LABORATORY CUMULATIVE REPORT (09/05/2017 12:00 AM MASTER BREWER) Narrative 09/05/2017 12:00 AM MASTER BREWER Ordered by an unspecified provider. Historical Provider LAB BLOOD ORDERABLES Iwona l Result * SURGICAL PATHOLOGY (09/05/2017 12:00 AM MASTER BREWER) Narrative 09/05/2017 12:00 AM MASTER BREWER Ordered by an unspecified provider. Historical Provider [...] Pre-Procedure (GI) New Bag 09/05/2017 7:34 AM MASTER BREWER 30 mL/hr 30 mL/hr Right Forearm sodium chloride 0.9% infusion 125 mL/hr, intravenous, Continuous, Starting on Mon09/05/17 at 0800, Recovery (GI) documented in this encounter Active and Recently Administered Medications Times are shown in MASTER BREWER. Continuous Medication Order 09/03/2017 09/04/2017 09/05/2017 sodium [...] 09/05/2017 documented in this encounter Care Teams Heavy Equipment Sales Associate Relationship Specialty Start Date End Date Wesley Em MD PCP - General 09/30/16 12/01/21 documented as of this encounter
--- OUTSIDE RECORDS SUMMARY | 2024-06-18 19:18 | XMS_ITS | Encounter Summary ---
Author Organization [facility] Healthcare Address [address] [place] [address] Care Team Providers Care Supervisor Framing Mill Name Role Phone Wesley Em MD Primary Care Provider [phone] Encounter Details Date Type Department Care Team (Late st Contact Info) Description 04/09/2018 6:35 PM CDT Lab [address] [address] Essential hypertension; Type 2 diabetes mellitus with hyperlipidemia (CMS/HCC) Social History Tobacco Use Types Packs/Day Years Used Date Smoking Tobacco: Former Smokeless Tobacco: Never Alcohol Use Standard Drinks/Week Comments No 0 (1 standard drink = 0.6 oz pur e alcohol) Sex and Gender Information Value Date Recorded Sex Assigned at Not on file 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 Estimated glomerular filtration [...] LAB BLOOD ORDERABLES Final Res ult RUB[facility] [address] Department [place] [address] * (ABNORMAL) Lipid panel (04/09/2018 8:27 AM CDT) [facility] Signature Cholesterol 211(H) 30 - 199 [...] last revised on 2018. Chol/HDL ratio 6 [facility] Blood specimen (specimen) 04/09/2018 8:27 AM CDT 04/09/2018 6:56 PM CDT Narrative R[facility] - 04/09/2018 7:19 PM CDT Wesley Em MD LAB BLOOD ORDERABLES Final Res ult Performing Organization Address City/[facility]/ZIP Co de Phone Number URVASHIMALINDA [id number] [place] [address] * Hemoglobin A1c (04/09/2018 8:27 AM CDT) Hgb A1C 6.0 4.0 - 6.0 % [facility] Comment: Interpretive Data Hemoglobin A1c ADA Interpretive Guidelines ??<7% ?? Glycemia controlled ??>8% ?? Hyperglycemia, additional action recommended Estrada Immunochemical Method Current interpretive data was last revised on 2015 Testing performed by: [facility], [address] [place] [address] Estimated Average Glucose 126 mg/dL [facility] Comment:Testing performed by : [facility], [place] [address] Blood specimen (specimen) 04/09/2018 8:27 AM CDT 04/10/2018 8:17 AM CDT Narrative [facility] - 04/10/2018 12:17 PM CDT Wesley Em MD LAB BLOOD ORDERABLES Final Res ult Performing Organization Address City/[facility] Co de Phone Number URVASHIMALINDA [address] [facility] [place] [address] * Basic metabolic panel (04/09/2018 8:27 AM CDT) Sodium 141 135 - 145 mmol/L [facility] Potassium, pl 3.5 3.5 - 5.1 mmol/L [facility] Chloride 105 100 - 114 mmol/L CERNER CO2 28 22 - 32 mmol/L [facility] Anion gap 12 8 - 16 mmol/L CERNER BUN 11 8 - 24 mg/dL [facility] Creatinine 1.16 0.70 - 1.40 mg/dL [facility] Glucose 117 70 - 199 mg/dL [facility] Comment: Interpretive Data Fasting glucose [...] 2017. Calcium 8.6 8.4 - 10.5 mg/dL [facility] Blood specimen (specimen) 04/09/2018 8:27 AM CDT 04/09/2018 6:56 PM CDT Narrative [facility] - 04/09/2018 7:19 PM CDT Wesley Em MD LAB BLOOD ORDERABLES Final Res ult [facility] [address] Department [place] [address] documented in this encounter Visit Diagnoses Diagnosis Essential hypertension Unspecified essential hypertension Type 2 diabetes mellitus with hyperlipidemia (HCC) documented in this encounter Care Teams Supervisor Framing Mill Relationship Specialty Start Date End Date Wesley Em MD PCP - General 09/30/16 12/01/21 documented as of this encounter
--- OUTSIDE RECORDS SUMMARY | 2024-06-18 19:18 | XMS_ITS | Encounter Summary ---
Author Organization [facility] Medical Group Address [address] [facility] [address] [place] [address] Care Team Providers Care Development Engineer Name Role Phone Wesley Em MD Primary Care Provider [phone] Reason for Visit * Reason Comments Medicare Wellness subsequent Forms/questionnaires bharath rahman Encounter Details Date Type Department Care Team (Late st Contact Info) Description 2017 11:30 AM CDT Office Visit [facility] [address] [facility] [address] [place] [address] Wesley Em MD [address] [place] [address] Medicare annual wellness visit, subsequent (Primary Dx); BMI 31.0-31.9,adult; 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); Chronic GERD; Type 2 diabetes mellitus with hyperlipidemia ([facility]/HCC); Essential hypertension; BPH with urinary obstruction; Kidney stones; Mixed hyperlipidemia Social History Tobacco Use Types Packs/Day Years Used Date Smoking Tobacco: Former Smokeless Tobacco: Never Alcohol Use Standard Drinks/Week Comments No 0 (1 standard drink = 0.6 oz pur e alcohol) Sex and Gender Information Value Date Recorded Sex Assigned at Not on file Legal Sex Male 6:00 PM MANAGER 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 Gender Identity Not on file Sexual Orientation [...] disease with 3 stents he sees his flanging roll operator just doctor as rec every 6 months [...] rash possible apple unknown reaction tobacco none [id number] but 40 pack year history alcohol none [...] children retired when he was 63 from [employer] he worked there for 40 years Review [...] a regular basis 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) He [...] Primary BMI 31.0-31.9,adult 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
--- OUTSIDE RECORDS SUMMARY | 2024-06-18 19:18 | XMS_ITS | Encounter Summary ---
Author Organization [facility] Healthcare Address [address] [place] [address] Care Team Providers Care Dovetailer Name Role Phone Wesley Em MD Primary Care Provider [phone] Reason for Visit * Reason Comments Abrasion Encounter Details Date Type Department Care Team (Late st Contact Info) Description 08/12/2017 3:51 PM HAND THERMAL CUTTER - 08/12/2017 4:37 PM HAND THERMAL CUTTER Emergency [facility] Emergency Department [address] [place] [address] Augusto Hernandez, DO [address] [place] [address] Cellulitis of left hand excluding fingers and [...] file Legal Sex Male 6:00 PM HAND THERMAL CUTTER Gender Identity Not on file Sexual Orientation Straight 01/23/2021 10 :16 PM CDT documented as of this encounter Last Filed Vital Signs Vital Sign Reading Time Taken Comments Blood Pressure 159/85 08/12/2017 4:22 PM HAND THERMAL CUTTER Pulse 66 08/12/2017 4:22 PM HAND THERMAL CUTTER Temperature 35.6 ??C (96.1 ??F) 08/12/2017 4:22 PM CS T Respiratory Rate 16 08/12/2017 4:22 PM HAND THERMAL CUTTER Oxygen Saturation 98% 08/12/2017 4:22 PM HAND THERMAL CUTTER Inhaled Oxygen Concentration - - Weight 85.7 kg (189 lb) 08/12/2017 4:22 PM HAND THERMAL CUTTER Height 175.3 cm (5' 9 ) 08/12/2017 4:22 PM HAND THERMAL CUTTER Body Mass Index 27.91 08/12/2017 4:22 PM HAND THERMAL CUTTER documented in this encounter Discharge Instructions * Attachments The following attachments cannot be sent through Care Everywhere. * Cellulitis (AfterCare(R) Instructions(ER/ED)) (Serbian) documented in this encounter Medications at Time [...] and denies additional symptoms at this time. THERMAL CUTTER * Keesha Madrigal NP - 08/12/2017 4:13 PM CST Images from the original note were not included. HPI No chief complaint on file. History provided by: Patient biblical languages professor used: No Hand Injury Location: Hand Hand [...] obstruction 12/26/2016 ??? Coronary artery disease involving yuhaaviatam heart without angina pectoris 12/26/2016 ??? Essential [...] fingers and thumb Keesha Madrigal NP 08/12/17 [id number] Cosigned by Augusto Hernandez DO at 08/13/2017 7:51 PM HAND THERMAL CUTTER THERMAL CUTTER THERMAL CUTTER documented in this encounter Plan of Treatment Not on file documented as of this encounter Visit Diagnoses Diagnosis Cellulitis of left hand excluding fingers and thumb- Primary documented in this encounter Care Teams Dovetailer Relationship Specialty Start Date End Date Wesley Em MD PCP - General 09/30/16 12/01/21 documented as of this encounter
--- OUTSIDE RECORDS SUMMARY | 2024-06-18 19:18 | XMS_ITS | Encounter Summary ---
Author Organization [facility] Medical Group Address [address] [facility] [address] [place] [address] Care Team Providers Care Inseam Trimming Machine Operator Name Role Phone Wesley Em MD Primary Care Provider [phone] Reason for Visit * Reason Comments Diabetes Hypertension Hyperlipidemia Encounter Details Date Type Department Care Team (Late st Contact Info) Description 04/23/2018 11:00 AM CDT Office Visit [facility] [address] [address] Wesley Em MD [address] [place] [address] Type 2 diabetes mellitus with hyperlipidemia (CMS/HCC) (Primary Dx); BMI 28.0-28.9,adult; Essential hypertension Social History Tobacco Use Types Packs/Day Years Used Date Smoking Tobacco: Former Smokeless Tobacco: Never Alcohol Use Standard Drinks/Week Comments No 0 (1 standard drink = 0.6 oz pur e alcohol) Sex and Gender Information Value Date Recorded Sex Assigned at Not on file Legal Sex Male 6:00 PM SPINDLE 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
--- OUTSIDE RECORDS SUMMARY | 2024-06-18 19:18 | XMS_ITS | Encounter Summary ---
Author Organization [facility] Medical Group Address [address] [facility] [address] [place] [address] Care Team Providers Care Reinstatement Clerk Name Role Phone Wesley Em MD Primary Care Provider [phone] Encounter Details Date Type Department Care Team (Late st Contact Info) Description 09/21/2018 Telephone [facility] 2 [facility] [address] [place] [address] Wesley Em MD [address] [address] Social History Tobacco Use Types Packs/Day Years Used Date Smoking Tobacco: Former Smokeless Tobacco: Never Alcohol Use Standard Drinks/Week Comments No 0 (1 standard drink = 0.6 oz pur e alcohol) Sex and Gender Information Value Date Recorded Sex Assigned at Not on file Legal Sex Male 6: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
--- OUTSIDE RECORDS SUMMARY | 2024-06-18 19:18 | XMS_ITS | Encounter Summary ---
Author Organization [facility] Medical Group Address [address] [facility] [address] [place] [address] Care Team Providers Care Government Affairs Fellow Name Role Phone Wesley Em MD Primary Care Provider Encounter Details Date Type Department Care Team (Late st Contact Info) Description 07/27/2017 Telephone [facility] [address] [address] Wesley Em MD [address] [place] [address] Social History Tobacco Use Types Packs/Day Years Used Date Smoking Tobacco: Former Smokeless Tobacco: Never Alcohol Use Standard Drinks/Week Comments No 0 (1 standard drink = 0.6 oz pur e alcohol) Sex and Gender Information Value Date Recorded Sex Assigned at Not on file Legal Sex Male 6:00 PM OUTDOOR ILLUMINATING ENGINEER Gender Identity Not on file Sexual [...] he be getting it done? Thank you OOR ILLUMINATING ENGINEER documented in this encounter Plan of Treatment Not on file documented as of this encounter Visit Diagnoses Not on filedocumented in this encounter Care Teams Government Affairs Fellow Relationship Specialty Start Date End Date Wesley Em MD PCP - General 09/30/16 12/01/21 documented as of this encounter
--- OUTSIDE RECORDS SUMMARY | 2024-06-18 19:18 | XMS_ITS | Encounter Summary ---
Author Organization [facility] Medical Group Address [address] [facility] [address] [place] [address] Care Team Providers Care Grade Teacher Name Role Phone Wesley Em MD Primary Care Provider [phone] Encounter Details Date Type Department Care Team (Late st Contact Info) Description 07/10/2017 Telephone [facility] [address] [address] Sheela Adam NP [address] [address] Social History Tobacco Use Types Packs/Day Years Used Date Smoking Tobacco: Former Smokeless Tobacco: Never Alcohol Use Standard Drinks/Week Comments No 0 (1 standard drink = 0.6 oz pur e alcohol) Sex and Gender Information Value Date Recorded Sex Assigned at Not on file Legal Sex Male 6:00 PM POOL MANAGER Gender Identity Not on file Sexual Orientation Straight 01/23/2021 10 :16 PM CDT documented as of this encounter Miscellaneous Notes * Telephone Encounter - Tanisha Meraz - 07/11/2017 3:38 PM CST Pt notified MANAGER * Telephone Encounter - Araseli Mckeon MA - 07/11/2017 9:04 AM CST lmom MANAGER * Telephone Encounter - Sheela Adam NP - 07/10/2017 5:05 PM POOL MANAGER Please tell patient I received radiologist's report on his x-rays. His tailbone is negative for fracture. His right great toe x-ray shows early arthritis changes but no acute fracture or dislocation.He should proceed with plan of care as discussed during his office visit. Thank you. MANAGER * Telephone Encounter - Raven Subramanian - 07/10/2017 2:05 PM CST Pt ret call and was advised of mesg MANAGER * Telephone Encounter - Whitney Orellana MA - 07/10/2017 1:39 PM CST lmom MANAGER * Telephone Encounter - Sheela Adam NP - 07/10/2017 12:02 PM POOL MANAGER Please tell patient the good news: His blood counts have returned nice and stable with a hemoglobinof 14.4 and hematocrit of 45.6. Also, please tell him I am awaiting the radiologist's report on hisx-rays. I will call as soon as these are received. Thank you. Hgb 13.0 - 17.5 g/dL 14.4 Hct 38.9 - 50.3 % 45.6 MANAGER documented in this encounter Plan of Treatment Not on file documented as of this encounter Visit Diagnoses Not on filedocumented in this encounter Care Teams Grade Teacher Relationship Specialty Start Date End Date Wesley Em MD PCP - General 09/30/16 12/01/21 documented as of this encounter
--- OUTSIDE RECORDS SUMMARY | 2024-06-18 19:18 | XMS_ITS | Encounter Summary ---
Author Organization [facility] Medical Group Address [address] [facility] [address] [place] [address] Care Team Providers Care Field Artillery Senior Sergeant Name Role Phone Wesley Em MD Primary Care Provider [phone] Encounter Details Date Type Department Care Team (Latest Contact Info) Description 07/07/2017 3:30 PM POND TENDER - 07/07/2017 11:59 PM POND TENDER Hospital Encounter [facility] 2 [facility] [address] [place] [address] Injury of coccyx, initial encounter; [...] on file Legal Sex Male 6:00 PM POND TENDER Gender Identity Not on file Sexual [...] Read Routine (OP Routine) 07/07/2017 4:20 PM POND TENDER Great toe pain, right XR SACRUM COCCYX 2 OR MORE VIEWS Schedule Routine, Read Routine (OP Routine) 07/07/2017 4:20 PM POND TENDER Injury of coccyx, initial encounter documented in this encounter Results * XR Toe Great Right (07/07/2017 4:20 PM POND TENDER) Anatomical Region Laterality Modality Lower Extremities, Foot, Toes Right Ra diographic Imaging Sheela Adam NP IMG XR PROCEDURES F inal Result * XR Sacrum Coccyx 2 or More Views (07/07/2017 4:20 PM POND TENDER) Anatomical Region Laterality Modality Pelvis, Body N/A Radiographic Jennifer ging Sheela Adam NP IMG XR PROCEDURES F inal Result documented in this encounter Visit Diagnoses Diagnosis Injury of coccyx, initial encounter Great toe pain, right documented in this encounter Care Teams Field Artillery Senior Sergeant Relationship Specialty Start Date End Date Wesley Em MD PCP - General 09/30/16 12/01/21 documented as of this encounter
--- OUTSIDE RECORDS SUMMARY | 2024-06-18 19:18 | XMS_ITS | Encounter Summary ---
Author Organization [facility] Healthcare Address [address] [place] [address] Care Team Providers Care Line Supervisor Name Role Phone Wesley Em MD Primary Care Provider [phone] Encounter Details Date Type Department Care Team (Late st Contact Info) Description 01/09/2018 8:49 AM CDT Anesthesia Event [facility] 1 [place] [address] [place] [address] [facility] [address] [place] [address] Maggy Milian MD PhD 1 [place] [address] Anesthesia Record Procedure Summary Procedure Name Responsible [...] file Legal Sex Male 6:00 PM TOW MOTOR OPERATOR Gender Identity Not on file Sexual Orientation Straight 01/23/2021 10 :16 PM CDT documented as of this encounter OR Notes * Anesthesia Postprocedure Evaluation - Katy Richard MD - 01/09/2018 9:13 AM CDT Patient: [place] Zun[place] Procedure Summary Date: 01/09/18 Room / Location: [facility] END[facility]COPY CAPSULE / [facility] Anesthesia Start: 0849 Anesthesia Stop: [...] Bladder stones ??? Coronary artery disease of assiniboine and sioux artery of assiniboine and sioux heart with stable angina pectoris (CMS/HCC) ??? [...] is Outpatient. Informed Consent: Discussed plan with SNACK BAR ATTENDANT. Anesthesia plan and risks discussed with patient. [...] CDT documented in this encounter Care Teams Line Supervisor Relationship Specialty Start Date End Date Wesley Em MD PCP - General 09/30/16 12/01/21 documented as of this encounter
--- OUTSIDE RECORDS SUMMARY | 2024-06-18 19:18 | XMS_ITS | Encounter Summary ---
Author Organization [facility] Healthcare Address [address] [place] [address] Care Team Providers Care Commercial Production Editor Name Role Phone Wesley Em MD Primary Care Provider [phone] Encounter Details Date Type Department Care Team (Late st Contact Info) Description 10/03/2017 10:30 AM CDT Lab [facility] Physicians 4 [facility] [address] [place] [address] Familial polycythemia Social History Tobacco Use Types Packs/Day Years Used Date Smoking Tobacco: Former Smokeless Tobacco: Never Alcohol Use Standard Drinks/Week Comments No 0 (1 standard drink = 0.6 oz pur e alcohol) Sex and Gender Information Value Date Recorded Sex Assigned at Not on file Legal Sex Male 6:00 PM HEALTH SCIENCES PROGRAM COORDINATOR Gender Identity Not on file Sexual [...] ??mL/min/1.73m2 *Relative to young adult level If -Spanish multiply value by 1.16. Estimated glomerular filtration [...] F inal Result [facility] ([place]) 1 [facility] [place] [address] * Comprehensive metabolic panel (10/03/2017 10:30 AM [...] MD LAB BLOOD ORDERABLES F inal Result [facility] 1 [facility] [place] [address] * CBC, [facility] Point of Care (10/03/2017 10:30 AM CDT) WBC, POC 6.45 3.80 - 9.80 K/cumm [facility] ([place]) RBC, POC 5.62 4.50 - 5.70 M/cumm [facility] ([place]) Hgb, POC 15.7 13.8 - 17.2 g/dL [facility] ([place]) Hct, POC 46.9 40.7 - 50.3 % [facility] ([facility] MCV, POC 83.5 80.0 - 100.0 fL [facility] ([place]) MCH, POC 27.9 26.7 - 33.7 pg [facility] ([place]) MCHC, POC 33.5 32.7 - 36.0 g/dL [facility] ([facility]) Platelets, POC 177 [...] BLOOD ORDERABLES F inal Result [facility] ([place]) 1 [facility] [place] [address] documented in this encounter Visit Diagnoses Diagnosis Familial polycythemia documented in this encounter Care Teams Commercial Production Editor Relationship Specialty Start Date End Date Wesley Em MD PCP - General 09/30/16 12/01/21 documented as of this encounter
--- OUTSIDE RECORDS SUMMARY | 2024-06-18 19:18 | XMS_ITS | Encounter Summary ---
Author Organization [facility] Healthcare Address [address] [place] [address] Care Team Providers Care Tuber Machine Operator Name Role Phone Wesley Em MD Primary Care Provider [phone] Encounter Details Date Type Department Care Team (Late st Contact Info) Description 10/03/2017 10:45 AM CDT Office Visit [facility] Physicians 4 [facility] [address] [place] [address] Lee Pierre MD [facility] MEDICAL [address] [address] Polycythemia (Primary Dx) Social History Tobacco Use Types Packs/Day Years Used Date Smoking Tobacco: Former Smokeless Tobacco: Never Alcohol Use Standard Drinks/Week Comments No 0 (1 standard drink = 0.6 oz pur e alcohol) Sex and Gender Information Value Date Recorded Sex Assigned at Not on file Legal Sex Male 6:00 PM ANIME ARTIST Gender Identity Not on file Sexual Orientation [...] Results (from the past 24 hour(s)) CBC, [facility] Point of Care Collection Time: 10/03/17 10:30 [...] secondary documented in this encounter Care Teams Tuber Machine Operator Relationship Specialty Start Date End Date Manav, Wesley D., MD PCP - General 09/30/16 12/01/21 documented as of this encounter
--- OUTSIDE RECORDS SUMMARY | 2024-06-18 19:18 | XMS_ITS | Encounter Summary ---
Author Organization [facility] Healthcare Address [address] [place] [address] Care Team Providers Care Director Zone Name Role Phone Wesley Em MD Primary Care Provider [phone] Encounter Details Date Type Department Care Team (Latest Contact Info) Description 09/05/2017 6:52 AM VEST FRONT PRESSER - 09/05/2017 9:26 AM VEST FRONT PRESSER Hospital Encounter [facility] 1 [place] [address] Albert Craft MD [address] [place], [place] [id number] River's esophagus with dysplasia Discharge Disposition: Discharge to home or self care Social History Tobacco Use Types Packs/Day Years Used Date Smoking Tobacco: Former Smokeless Tobacco: Never Alcohol Use Standard Drinks/Week Comments No 0 (1 standard drink = 0.6 oz pur e alcohol) Sex and Gender Information Value Date Recorded Sex Assigned at Not on file Legal Sex Male 6:00 PM VEST FRONT PRESSER Gender Identity Not on file Sexual Orientation Straight 01/23/2021 10 :16 PM CDT documented as of this encounter Last Filed Vital Signs Vital Sign Reading Time Taken Comments Blood Pressure 163/92 09/05/2017 9:05 AM VEST FRONT PRESSER Pulse 67 09/05/2017 9:05 AM VEST FRONT PRESSER Temperature 36.3 ??C (97.3 ??F) 09/05/2017 9:05 AM CS T Respiratory Rate 20 09/05/2017 9:05 AM VEST FRONT PRESSER Oxygen Saturation 99% 09/05/2017 9:05 AM VEST FRONT PRESSER Inhaled Oxygen Concentration - - Weight 87.5 kg (193 lb) 09/05/2017 7:11 AM VEST FRONT PRESSER Height 175.3 cm (5' 9 ) 09/05/2017 7:11 AM VEST FRONT PRESSER Body Mass Index 28.5 09/05/2017 7:11 AM VEST FRONT PRESSER documented in this encounter Medications at Time [...] GI PLAN/RECOMMENDATIONS: 1. EGD Albert Craft MD FRONT PRESSER documented in this encounter Procedure Notes * Albert Craft MD - 09/05/2017 8:13 AM CSTAssociated Order(s): EGD [facility] Patient Name: Verna Alston Procedure Date: 09/05/2017 8:13 AM Date of : 1945 Admit Type: Outpatient Age: 71 Gender: Male Attending MD: Albert Craft MD Room: [facility] ENDOSCOPY CAPSULE Note Status: Finalized Patient [...] passed under direct vision. The Endoscope GIF-H190 [id number] was introduced through the mouth, and advanced [...] 8:13 AM Procedure Code(s): --- Professional --- 98996, Esophagogastroduodenoscopy, flexible, transoral; with biopsy, single or multiple Diagnosis Code(s): --- Professional --- K22.70, 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 CPT copyright 2014 [employer]. All rights reserved. The codes documented in this report are preliminary and upon gold stamper review may be revised to meet current compliance requirements. Recognized by the [employer] for promoting quality in endoscopy FRONT PRESSER documented in this encounter Plan of Treatment Not on file documented as of this encounter Procedures Procedure Name Priority Date/Time Associated Diagnosis Comments SURGICAL PATHOLOGY Routine 09/05/2017 10:19 AM VEST FRONT PRESSER EGD 09/05/2017 8:13 AM VEST FRONT PRESSER ESOPHAGOGASTRODUODENOSCOPY BIOPSY 09/05/2017 8:12 AM VEST FRONT PRESSER BARRETTS GLUCOSE POC Routine 09/05/2017 7:40 AM VEST FRONT PRESSER DISCHARGE LABORATORY CUMULAT SONG REPORT 09/05/2017 12:00 AM VEST FRONT PRESSER SURGICAL PATHOLOGY 09/05/2017 12:00 AM VEST FRONT PRESSER documented in this encounter Results * Surgical pathology (09/05/2017 10:19 AM VEST FRONT PRESSER) 09/05/2017 10:1 9 AM VEST FRONT PRESSER 09/05/2017 10:19 AM VEST FRONT PRESSER Narrative 09/06/2017 2:22 PM VEST FRONT PRESSER [facility] Department of Pathology [address] [place] [address] Final Report ?Patient Name: VERNA ALSTON Address: [address] Service: Gastro ??[place], [place] ??6 Location: [place] Taken: 09/05/2017 Gender: M Received 09/05/2017 : 1945 (Age: 71) [facility] #: [id number] Accessioned: 09/05/2017 ?? Patient Type: [facility] SDS [...] determined by the Surgical Pathology Department at [facility] as part of an ongoing auditor/quality program and in compliance with federally mandated [...] characteristics [facility] ??It has not been cleared or approved by the U. S. Food and Drug Administration. us Albert Craft MD LAB PATHOLOGY ORDERABLES F inal Result * EGD (09/05/2017 8:13 AM VEST FRONT PRESSER) Anatomical Region Laterality Modality Other Narrative Procedure Note Albert Craft MD - 09/05/2017 8:13 AM CST [facility] Patient Name: Verna Alston Procedure Date: 09/05/2017 8:13 AM Date of : 1945 Admit Type: Outpatient Age: 71 Gender: Male Attending MD: Albert Craft MD Room: [facility] ENDOSCOPY CAPSULE Note Status: Finalized Patient [...] was passed under direct vision.The Endoscope GIF-H190 [id number] was introduced throughthe mouth, and advanced to [...] 8:13 AM Procedure Code(s): --- Professional --- 27295, Esophagogastroduodenoscopy, flexible, transoral; with biopsy, single or multiple Diagnosis Code(s): --- Professional --- K22.70, 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 CPT copyright 2014 [employer]. All rights reserved. The codes documented in this report are preliminary and upon gold stamper reviewmay be revised to meet current compliance requirements. Recognized by the [employer] for promoting quality in endoscopy Albert Craft MD ENDOSCOPY PROCEDURES Final Result * (ABNORMAL) Glucose POC (09/05/2017 7:40 AM VEST FRONT PRESSER) Glucose, POC 109(H) 71 - 98 mg/dL [facility] (BETTY) Blood specimen (specimen) 09/05/2017 7:40 AM VEST FRONT PRESSER 09/05/2017 7:40 AM VEST FRONT PRESSER Narrative [facility] ([facility]) - 09/05/2017 7:46 AM VEST FRONT PRESSER Albert Craft MD POINT OF CARE TEST ORDERAB LES Final Result [facility] ([facility]ET[facility]) 1 [facility] Department [place] [address] * DISCHARGE LABORATORY CUMULATIVE REPORT (09/05/2017 12:00 AM VEST FRONT PRESSER) Narrative 09/05/2017 12:00 AM VEST FRONT PRESSER Ordered by an unspecified provider. Historical Provider LAB BLOOD ORDERABLES Iwona l Result * SURGICAL PATHOLOGY (09/05/2017 12:00 AM VEST FRONT PRESSER) Narrative 09/05/2017 12:00 AM VEST FRONT PRESSER Ordered by an unspecified provider. Historical Provider [...] Pre-Procedure (GI) New Bag 09/05/2017 7:34 AM VEST FRONT PRESSER 30 mL/hr 30 mL/hr Right Forearm sodium chloride 0.9% infusion 125 mL/hr, intravenous, Continuous, Starting on e 09/05/17 at 0800, Recovery (GI) documented in this encounter Active and Recently Administered Medications Times are shown in VEST FRONT PRESSER. Continuous Medication Order 09/03/2017 09/04/2017 09/05/2017 sodium [...] 09/05/2017 documented in this encounter Care Teams Director Zone Relationship Specialty Start Date End Date Wesley Em MD PCP - General 09/30/16 12/01/21 documented as of this encounter
--- OUTSIDE RECORDS SUMMARY | 2024-06-18 19:18 | XMS_ITS | Encounter Summary ---
Author Organization [facility] Medical Group Address [address] [facility] [address] [place] [address] Care Team Providers Care Director Of Assisted Living Name Role Phone Wesley Em MD Primary Care Provider [phone] Encounter Details Date Type Department Care Team (Late st Contact Info) Description 01/16/2018 Orders Only [facility] Health Information Management [address] [place] [address] Scanning, Provider Social History Tobacco Use Types Packs/Day Years Used Date Smoking Tobacco: Former Smokeless Tobacco: Never Alcohol Use Standard Drinks/Week Comments No 0 (1 standard drink = 0.6 oz pur e alcohol) Sex and Gender Information Value Date Recorded Sex Assigned at Not on file 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
--- OUTSIDE RECORDS SUMMARY | 2024-06-18 19:18 | XMS_ITS | Encounter Summary ---
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 Gender Identity Not on file Sexual [...] Comments SCAN - RADIOLOGY/IMAGING 07/13/2017 8:53 AM SEARCH ENGINE OPTIMIZATION SPECIALIST documented in this encounter Results * SCAN - RADIOLOGY/IMAGING (07/13/2017 8:53 AM SEARCH ENGINE OPTIMIZATION SPECIALIST) Anatomical Region Laterality Modality Other us Provider Scanning Final Result documented in this encounter Visit Diagnoses Not on filedocumented in this encounter Care Teams Director Of Analytics Relationship Specialty Start Date End Date Wesley Em MD PCP - General 09/30/16 12/01/21 Tiny Ferreira, ELBERT [address] [place] [address] [place] [address] [employer] Math Teacher 09/19/17 09/27/17 Trey Pinedo MD [address] [place] [address] [address] [place] [address] Consulting Physician Neurology 05/09/19 documented as of this encounter
--- OUTSIDE RECORDS SUMMARY | 2024-06-18 19:18 | XMS_ITS | Encounter Summary ---
Author Organization [facility] Medical Group Address [address] [facility] [address] [place] [address] Care Team Providers Care Divorce Mediator Name Role Phone Wesley Em MD Primary Care Provider [phone] Encounter Details Date Type Department Care Team (Late st Contact Info) Description 09/21/2018 Telephone [facility] 2 [facility] [address] [place] [address] Martha Sutton MA Social History Tobacco Use Types Packs/Day Years Used Date Smoking Tobacco: Former Smokeless Tobacco: Never Alcohol Use Standard Drinks/Week Comments No 0 (1 standard drink = 0.6 oz pur e alcohol) Sex and Gender Information Value Date Recorded Sex Assigned at Not on file 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
--- OUTSIDE RECORDS SUMMARY | 2024-06-18 19:18 | XMS_ITS | Encounter Summary ---
Author Organization [facility] Healthcare Address [address] [place] [address] Care Team Providers Care Restaurant Assistant Manager Name Role Phone Wesley Em MD Primary Care Provider [phone] Encounter Details Date Type Department Care Team (Latest Contact Info) Description 01/11/2018 12:50 PM CDT Hospital Encounter [facility] Simon Bucio MD [address] [address] Calculus of kidney Social History Tobacco Use Types Packs/Day Years Used Date Smoking Tobacco: Former Smokeless Tobacco: Never Alcohol Use Standard Drinks/Week Comments No 0 (1 standard drink = 0.6 oz pur e alcohol) Sex and Gender Information Value Date Recorded Sex Assigned at Not on file 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 WM: Report ID: [id number] Reading Location: [place] [address] [EOD] Simon Bucio MD IMG XR PROCEDURES Iwona l Result documented in this encounter Visit Diagnoses Diagnosis Calculus of kidney documented in this encounter Care Teams Restaurant Assistant Manager Relationship Specialty Start Date End Date Wesley Em MD PCP - General 09/30/16 12/01/21 documented as of this encounter
--- OUTSIDE RECORDS SUMMARY | 2024-06-18 19:18 | XMS_ITS | Encounter Summary ---
Author Organization [facility] Healthcare Address [address] [place] [address] Care Team Providers Care Drugless Doctor Name Role Phone Wesley Em MD Primary Care Provider Encounter Details Date Type Department Care Team (Latest Contact Info) Description 01/09/2018 6:55 AM CDT - 01/09/2018 10:24 AM CDT Hospital Encounter [facility] [address] [place] [address] Albert Crfat MD [address] [facility] [place], [place] [id number] Colon cancer screening Discharge Disposition: Discharge to home or self care Social History Tobacco Use Types Packs/Day Years Used Date Smoking Tobacco: Former Smokeless Tobacco: Never Alcohol Use Standard Drinks/Week Comments No 0 (1 standard drink = 0.6 oz pur e alcohol) Sex and Gender Information Value Date Recorded Sex Assigned at Not on file 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 The Pediatric Colonoscope PCF-H190L [id number] was introduced through the anus and advanced [...] 8:46 AM Procedure Code(s): --- Professional --- 34924, Colonoscopy, flexible; with removal of tumor(s), polyp(s), or other lesion(s) by snare technique 78463, 59, Colonoscopy, flexible; with biopsy, single or multiple Diagnosis Code(s): --- Professional --- Z12.11, Encounter for screening for malignant neoplasm of colon D12.0, Benign neoplasm of cecum D12.2, Benign neoplasm of ascending colon D12.4, Benign neoplasm of descending colon K64.8, Other hemorrhoids CPT copyright 2017 [employer]. All rights reserved. The codes documented in this report are preliminary and upon virtual recruiter review may be revised to meet current compliance requirements. Recognized by the [employer] for promoting quality [...] PM CDT Narrative 01/10/2018 10:39 AM CDT [facility] results best viewed via link to PDF [facility] Department of Pathology [address] [place] [id number] Final Report Patient Name: ??VILLA ALSTON SR Address: [address] ??[place], [place] [address] Gender: ??M : ??1945 (Age: 72) Service: ??Gastro Location: [facility] #: ??[id number] Patient Type: ??[facility] SDS Accession # ?[id number] Taken: ??01/09/2018 Received: ??01/09/2018 Accessioned: ??01/09/2018 Reported: [...] determined by the Surgical Pathology Department at [facility] as part of an ongoing quality improvement manager program and in compliance with federally [...] characteristics determined by the Surgical Pathology Department [facility]. ??It has not been cleared or approved by the U. S. Food and Drug Administration. Albert Craft MD LAB PATHOLOGY ORDERABLES F inal Result * COLONOSCOPY (01/09/2018 8:46 AM CDT) Anatomical Region Laterality Modality Other Narrative Procedure Note Albert Craft MD - 01/09/2018 8:46 AM CDT [facility] Patient Name: Villa Alston Procedure Date: 01/09/2018 8:46 AM Date of : 1945 Admit Type: Outpatient Age: 72 Gender: Male Attending MD: Albert Craft MD Room: [facility] ENDOSCOPY CAPSULE Note Status: Finalized [...] passed under direct vision.The Pediatric Colonoscope PCF-H190L [id number] was introduced through the anus and advanced [...] 8:46 AM Procedure Code(s): --- Professional --- 88069, Colonoscopy, flexible; with removal of tumor(s), polyp(s), or other lesion(s) by snare technique [id number], 59, Colonoscopy, flexible; with biopsy, single or multiple Diagnosis Code(s): --- Professional --- Z12.11, Encounter for screening for malignant neoplasm of colon D12.0, Benign neoplasm of cecum D12.2, Benign neoplasm of ascending colon D12.4, Benign neoplasm of descending colon K64.8, Other hemorrhoids CPT copyright 2017 [employer]. All rights reserved. The codes documented in this report are preliminary and upon virtual recruiter reviewmay be revised to meet current compliance requirements. Recognized by the [employer] for promoting quality [...] 01/09/2018 documented in this encounter Care Teams Drugless Doctor Relationship Specialty Start Date End Date Wesley Em MD PCP - General 09/30/16 12/01/21 documented as of this encounter
--- OUTSIDE RECORDS SUMMARY | 2024-06-18 19:18 | XMS_ITS | Encounter Summary ---
Author Organization [facility] Medical Group Address [address] [place] [address] Care Team Providers Care Prehemmer Name Role Phone Wesley Em MD Primary Care Provider [phone] Encounter Details Date Type Department Care Team (Late st Contact Info) Description 04/09/2018 7:45 AM CDT Lab [facility] [address] [place] [address] [address] [place] [id number] Essential hypertension Social History Tobacco Use Types Packs/Day Years Used Date Smoking Tobacco: Former Smokeless Tobacco: Never Alcohol Use Standard Drinks/Week Comments No 0 (1 standard drink = 0.6 oz pur e alcohol) Sex and Gender Information Value Date Recorded Sex Assigned at Not on file 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
--- OUTSIDE RECORDS SUMMARY | 2024-06-18 19:18 | XMS_ITS | Encounter Summary ---
Author Organization [facility] Healthcare Address [address] [place] [address] Care Team Providers Care Tiler'S Assistant Name Role Phone Wesley Em MD Primary Care Provider [phone] Encounter Details Date Type Department Care Team (Late st Contact Info) Description 10/06/2017 2:25 PM CDT Lab [address] [address] Type 2 diabetes mellitus without complication, without [...] on file Legal Sex Male 6:[address] ATTENDANT Gender Identity Not on file Sexual [...] complication, without long-term current use of insulin ([facility]) COMPREHENSIVE METABOLIC PANEL Routine 10/06/2017 7:09 AM CDT Type 2 diabetes mellitus without complication, without long-term current use of insulin ([facility]) documented in this encounter Results * eGFR (10/06/2017 7:09 AM CDT) [facility] eGFR 55 mL/min/1.7 3 m2 [facility] Comment: Interpretive Data Reference Interval Normal ?>/= 90 mL/min/1.73m2 Mildly decreased* ? 60 - 89 mL/min/1.73m2 Mildly to moderately decreased ?45 - 59 mL/min/1.73m2 Moderately to severely decreased ??30 - 44 mL/min/1.73m2 Severely decreased ?15 - 29 mL/min/1.73m2 Kidney Failure ?< 15 ??mL/min/1.73m2 *Relative to young adult level If -Panamanian multiply value by 1.16. Estimated glomerular filtration [...] ult Performing Organization Address [facility] de Phone Number [facility] [address] [place] [address] * (ABNORMAL) Urinalysis, microscopic only [...] ult Performing Organization Address [facility] Co de Phone Number [facility] [address] [place] [address] * (ABNORMAL) Differential, auto (10/06/2017 7:09 AM CDT) Neutrophil pct 55.8 % [facility] Imm gran pct 0.3 % [facility] Lymphocyte pct 25.8 % [facility] Monocyte pct 11.6 % [facility] Eosinophil pct 0.3 % [facility] Basophil pct 1.9 % [facility] Neutrophil abs 4.13 1.70 - 6.50 K/cumm [facility] Imm gran abs 0.02 0.00 - 0.10 K/cumm [facility] Lymphocyte abs 1.91 0.80 - 3.30 K/cumm [facility] Monocyte abs 0.86(H) 0.20 - 0.80 K/cumm [facility] Eosinophil abs 0.34 0.00 - 0.50 K/cumm [facility] Basophil abs 0.14(H) 0.00 - 0.10 K/cumm [facility] Blood specimen (specimen) 10/06/2017 7:09 AM CDT 10/06/2017 2:39 PM CDT Narrative [facility] - 10/06/2017 4:19 PM CDT us Wesley Em MD LAB BLOOD ORDERABLES Final Res ult [facility] [address] Department [place] [address] * (ABNORMAL) Lipid panel with reflex to direct LDL (10/06/2017 7:09 AM CDT) Cholesterol 120 100 - 200 mg/dL [facility] Comment: Interpretive Data Desirable: ?<200 mg/dL Borderline high: ??200-239 mg/dL High: ? >240 mg/dL Current interpretive data was last revised on 2016. Triglycerides 146 10 - 150 mg/dL [facility] Comment: Interpretive Data Desirable: ? < 150 ? mg/dL Borderline High: ? 150 - 199 mg/dL High: ?200 - 499 mg/dL Very High: ? > or = 499 ??mg/dL Current interpretive data was last revised on 2016. HDL 32(L) 40 - 59 mg/dL [facility] Comment: Interpretive Data Less than 40 mg/dL - Low; A major risk factor for heart disease. Greater than or equal to 60 mg/dL - High; ??Considered protective of heart disease. Current interpretive data was last revised on 2016. LDL, calculated 59(L) 60 - 129 mg/dL [facility] Comment: Interpretive Data Optimal: ? < 100 mg/dL Near Optimal: ?100 - 129 mg/dL Borderline High: ?? 130 - 159 mg/dL High: ?> 160 mg/dL Current interpretive data was last revised on 2016. Chol/HDL ratio 4 mg/dL [facility] Blood specimen (specimen) 10/06/2017 7:09 AM CDT 10/06/2017 2:39 PM CDT Narrative [facility] - 10/06/2017 4:51 PM CDT Wesley Em MD LAB BLOOD ORDERABLES Final Res ult [facility] [address] Department of Laboratories [place] [id number] * (ABNORMAL) Microalbumin, urine, random (10/06/2017 7:09 AM CDT) Microalbumin, ur 327.0(H) 0.0 - 29.9 mcg/mL [facility] Creatinine, ur 92.46 mg/dL [facility] Microalbumin/crea t ratio 353.7(H) 0.0 - 29.9 mcg/mg Cr [facility] Comment: Interpretive Data Normal: ?< 30 mcg/mg Microalbuminuria: ?30 - 300 mcg/mg Clinical Albuminuria: ? 300 mcg/mg Current interpretive data was last reviewed 2015 Urine 10/06/2017 7:09 AM CDT 10/06/2017 2:39 PM CDT Narrative [facility] - 10/06/2017 4:31 PM CDT Wesley Em MD LAB URINE ORDERABLES Final Res ult Performing Organization Address [facility] Co de Phone Number [facility] [address] Department [place] [address] * (ABNORMAL) Hemoglobin A1c (10/06/2017 7:09 AM CDT) Hgb A1C 6.1(H) 4.0 - 6.0 % [facility] Comment: Interpretive Data Hemoglobin A1c ADA Interpretive Guidelines ??<7% ?? Glycemia controlled ??>8% ?? Hyperglycemia, additional action recommended Estrada Immunochemical Method Current interpretive data was last revised on 2015 [facility] [place] [address] Estimated Average Glucose 128 mg/dL [facility] Comment:Testing performed by : [facility], [place] [address] Blood specimen (specimen) 10/06/2017 7:09 AM CDT 10/06/2017 6:21 PM CDT Narrative [facility] - 10/06/2017 7:40 PM CDT us Wesley Em MD LAB BLOOD ORDERABLES Final Res ult Performing Organization Address [facility] de Phone Number [facility] [address] Department [place] [address] * (ABNORMAL) Urinalysis reflex to microscopic and [...] ORD ERABLES Final Result Performing Organization Address [facility] Co de Phone Number [facility] [address] Department [place], [place] [id number] * (ABNORMAL) CBC with auto differential (10/06/2017 7:09 AM CDT) WBC 7.40 3.80 - 9.90 K/cumm [facility] RBC 5.68 4.30 - 5.80 M/cumm [facility] Hgb 15.9 13.0 - 17.5 g/dL [facility] Hct 49.7 38.9 - 50.3 % [facility] MCV 87.5 81.3 - 96.4 fL [facility] MCH 28.0 27.1 - 33.3 pg [facility] MCHC 32.0(L) 32.3 - 35.7 g/dL [facility] RDW CV 14.0 11.1 - 14.9 % [facility] RDW SD 44.4 35.7 - 48.1 fL [facility] Plt 190 150 - 400 K/cumm [facility] MPV 11.3 9.1 - 12.3 fL [facility] NRBC abs 0.00 0.00 - 0.01 K/cumm [facility] Blood specimen (specimen) 10/06/2017 7:09 AM CDT 10/06/2017 2:39 PM CDT Narrative [facility] - 10/06/2017 4:19 PM CDT Wesley Em MD LAB BLOOD ORDERABLES Final Res ult Performing Organization Address City/[facility]/ZIP Co de Phone Number [facility] [address] [place] [address] * (ABNORMAL) Comprehensive metabolic panel (10/06/2017 7:09 [...] LAB BLOOD ORDERABLES Final Res ult [facility] [address] [place] [address] documented in this encounter Visit Diagnoses Diagnosis Type 2 diabetes mellitus without complication, without long-term current use of insulin (CMS/HCC) (HCC) Essential hypertension Unspecified essential hypertension Mixed hyperlipidemia documented in this encounter Care Teams Tiler'S Assistant Relationship Specialty Start Date End Date Wesley Em MD PCP - General 09/30/16 12/01/21 documented as of this encounter
--- OUTSIDE RECORDS SUMMARY | 2024-06-18 19:18 | XMS_ITS | Encounter Summary ---
Author Organization [facility] Address [address] [place] [address] Care Team Providers Care Office Receptionist Name Role Phone Wesley Em MD Primary Care Provider [phone] Reason for Referral * MRI/CAT/PET Scan (Routine) - Closed Specialty Diagnoses / Procedures Referred By Jomar t Referred To Contact Radiology Diagnoses Cigarette smoker Procedures CT Lung Cancer Screening Wesley Em MD Phone: tel: fax: Referral ID Status Reason Start Date Expiration Date Visits Re quested Visits Authorized [id number] Closed 08/07/2017 02/03/2018 1 1 Reason for Visit * MRI/CAT/PET Scan (Routine) - Closed Specialty Diagnoses / Procedures Referred By Jomar villela Referred To Contact Radiology Diagnoses Cigarette smoker Procedures CT Lung Cancer Screening Wesley Em MD Phone: tel: fax: Referral ID Status Reason Start Date Expiration Date Visits Re quested Visits Authorized [id number] Closed 08/07/2017 02/03/2018 1 1 Encounter Details Date Type Department Care Team (Latest Contact Info) Description 10/11/2017 10:35 AM CDT - 10/11/2017 11:59 PM CDT Hospital Encounter [facility] Imaging and Radiology [address] [place] [id number] Wesley Em MD [address] [place] [address] [place], [place] [id number] Cigarette smoker Discharge Disposition: Discharge to home or self care Social History Tobacco Use Types Packs/Day Years Used Date Smoking Tobacco: Former Smokeless Tobacco: Never Alcohol Use Standard Drinks/Week Comments No 0 (1 standard drink = 0.6 oz pur e alcohol) Sex and Gender Information Value Date Recorded Sex Assigned at Not on file 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
--- OUTSIDE RECORDS SUMMARY | 2024-06-18 19:18 | XMS_ITS | Encounter Summary ---
Author Organization [facility] Medical Group Address [address] [place] [address] Care Team Providers Care Automatic Head Sawyer Name Role Phone Wesley Em MD Primary Care Provider [phone] Reason for Visit * Reason Comments Follow-up cellulitis of left h and Encounter Details Date Type Department Care Team (Late st Contact Info) Description 08/21/2017 1:30 PM TEST PULLER Office Visit [facility] [address] [place] [address] Sheela Adam NP [address] [facility] [address] [place] [address] Skin tear of left hand without complication, [...] file Legal Sex Male 6:00 PM TEST PULLER Gender Identity Not on file Sexual Orientation Straight 01/23/2021 10 :16 PM CDT documented as of this encounter Last Filed Vital Signs Vital Sign Reading Time Taken Comments Blood Pressure 154/90 08/21/2017 1:19 PM TEST PULLER Pulse 50 08/21/2017 1:19 PM TEST PULLER Temperature 36.9 ??C (98.4 ??F) 08/21/2017 1:19 PM CS T Respiratory Rate 24 08/21/2017 1:19 PM TEST PULLER Oxygen Saturation - - Inhaled Oxygen Concentration - - Weight 87.7 kg (193 lb 6.4 oz) 08/21/2017 1:19 P M TEST PULLER Height 175.3 cm (5' 9.02 ) 08/21/2017 1:19 PM CS T Body Mass Index 28.55 08/21/2017 1:19 PM TEST PULLER documented in this encounter Progress Notes * Sheela Adam, MECHANICAL APPLICATIONS ENGINEER - 08/21/2017 1:30 PM CST Subjective/Objective Patient [...] NP *This office note was completed using [employer] correctional security officer neisha and may be subject to correctional security officer errors* Cosigned by Wesley Em MD at 08/23/2017 6:57 AM TEST PULLER PULLER PULLER documented in this encounter Miscellaneous Notes * [...] as was his who accompanied him today. PULLER * Assessment & Plan Note - Sheela Adam NP - 08/21/2017 1:57 PM CSTAssociated Problem(s): Cellulitis of hand, left (Resolved 2017) Resolved. There is no indication for additional antibiotics at the present time. PULLER documented in this encounter Plan of Treatment [...] documented as of this encounter Care Teams Automatic Head Sawyer Relationship Specialty Start Date End Date Wesley Em MD PCP - General 09/30/16 12/01/21 documented as of this encounter
--- OUTSIDE RECORDS SUMMARY | 2024-06-18 19:19 | XMS_ITS | Encounter Summary ---
Author Organization [facility] Medical Group Address [address] [place] [address] Care Team Providers Care Plant Operator/Shift Supervisor Name Role Phone Wesley Em MD Primary Care Provider [phone] Reason for Visit * Reason Comments Dizziness Encounter Details Date Type Department Care Team (Late st Contact Info) Description 07/07/2017 3:00 PM LENS EDGER Office Visit [facility] [address] [facility] [address] [place] [address] Sheela Adam NP [address] [facility] [address] [place] [id number] Injury of coccyx, initial encounter (Primary Dx); Great toe pain, right; Polycythemia; BMI 28.0-28.9,adult Social History Tobacco Use Types Packs/Day Years Used Date Smoking Tobacco: Former Smokeless Tobacco: Never Alcohol Use Standard Drinks/Week Comments No 0 (1 standard drink = 0.6 oz pur e alcohol) Sex and Gender Information Value Date Recorded Sex Assigned at Not on file Legal Sex Male 6:00 PM LENS EDGER Gender Identity Not on file Sexual Orientation Straight 01/23/2021 10 :16 PM CDT documented as of this encounter Last Filed Vital Signs Vital Sign [place] Time Taken Comments Blood Pressure 140/70 07/07/2017 3:10 PM LENS EDGER Pulse 64 07/07/2017 3:10 PM LENS EDGER Temperature 36.5 ??C (97.7 ??F) 07/07/2017 3:10 PM CS T Respiratory Rate 16 07/07/2017 3:10 PM LENS EDGER Oxygen Saturation - - Inhaled Oxygen Concentration - - Weight 86 kg (189 lb 11.2 oz) 07/07/2017 3:10 PM LENS EDGER Height 174 cm (5' 8.5 ) 07/07/2017 3:10 PM LENS EDGER Body Mass Index 28.42 07/07/2017 3:10 PM LENS EDGER documented in this encounter Progress Notes * [...] Hoskins. Recently he switched to a new assisted living executive director in the area when his prior [...] and results will be forwarded along to assisted living executive director for review as well. Further direction [...] NP *This office note was completed using [employer] laboratory chemical assistant neisha and may be subject to laboratory chemical assistant errors* Cosigned by Wesley Em MD at 07/07/2017 4:21 PM LENS EDGER EDGER EDGER documented in this encounter Miscellaneous Notes * Assessment & Plan Note - Sheela Adam NP - 07/07/2017 3:40 PM CSTAssociated Problem(s): Polycythemia Patient is currently undergoing treatment per Hematology. He is concerned his blood counts may be drifting upward and request CBC today. Blood work will be drawn and results will be forwarded along to assisted living executive director for review as well. Further direction pending these results. He is to contact the office if he has not heard from me by Monday for review. EDGER * Assessment & Plan Note - Sheela Aadm NP - 07/07/2017 3:40 PM CSTAssociated Problem(s): Injury of coccyx (Resolved 2017) I recommended we proceed with x-ray of the sacrum and coccyx to rule out underlying fracture. Further direction pending x-ray results. EDGER * Assessment & Plan Note - Sheela [...] will continue this treatment regimen until healed. EDGER documented in this encounter Plan of Treatment Not on file documented as of this encounter Results * XR Toe Great Right (07/07/2017 4:20 PM LENS EDGER) Anatomical Region Laterality Modality Lower Extremities, Foot, Toes Right Ra diographic Imaging Sheela Adam NP IMG XR PROCEDURES F inal Result * XR Sacrum Coccyx 2 or More Views (07/07/2017 4:20 PM LENS EDGER) Anatomical Region Laterality Modality Pelvis, Body N/A Radiographic Jennifer ging Sheela Adam MMD UNIT TEACHER IMG XR PROCEDURES F inal Result * (ABNORMAL) CBC with auto differential (07/07/2017 3:41 PM LENS EDGER) Pathologist [facility] WBC 7.93 3.80 - 9.90 K/cumm [facility] RBC 5.30 4.30 - 5.80 M/cumm [facility] Hgb 14.4 13.0 - 17.5 g/dL [facility] Hct 45.6 38.9 - 50.3 % [facility] MCV 86.0 81.3 - 96.4 fL [facility] MCH 27.2 27.1 - 33.3 pg [facility] MCHC 31.6(L) 32.3 - 35.7 g/dL [facility] RDW CV 14.7 11.1 - 14.9 % [facility] RDW SD 45.8 35.7 - 48.1 fL [facility] Plt 236 150 - 400 K/cumm [facility] MPV 11.2 9.1 - 12.3 fL [facility] NRBC 0.0 0.0 - 0.2 % [facility] NRBC abs 0.00 0.00 - 0.01 K/cumm [facility] Blood specimen (specimen) 07/07/2017 3:41 PM LENS EDGER 07/07/2017 7:59 PM LENS EDGER Narrative [facility] - 07/07/2017 8:37 PM LENS EDGER Sheela Adam NP LAB BLOOD ORDERABLE S Final Result [facility] [address] Department of [place] [phone] documented in this encounter Visit Diagnoses Diagnosis Injury of coccyx, initial encounter- Primary Great toe pain, right Polycythemia Polycythemia, secondary BMI 28.0-28.9,adult Polycythemia Polycythemia, secondary documented in this encounter Care Teams Plant Operator/Shift Supervisor Relationship Specialty Start Date End Date Wesley Em MD PCP - General 09/30/16 12/01/21 documented as of this encounter
--- OUTSIDE RECORDS SUMMARY | 2024-06-18 19:19 | XMS_ITS | Encounter Summary ---
Author Organization [facility] Healthcare Address [address] [place] [address] Care Team Providers Care Rest Room Attendant Name Role Phone Wesley Em MD Primary Care Provider [phone] Encounter Details Date Type Department Care Team (Late st Contact Info) Description 04/04/2017 4:35 PM CDT Lab [address] [address] Type 2 diabetes mellitus without complication, unspecified detention insulin use status (CMS/HCC); Benign hypertension Social History Tobacco Use Types Packs/Day Years Used Date Smoking Tobacco: Former Smokeless Tobacco: Never Alcohol Use Standard Drinks/Week Comments No 0 (1 standard drink = 0.6 oz pur e alcohol) Sex and Gender Information Value Date Recorded Sex Assigned at Not on file Legal Sex Male 6:00 PM 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 Gender Identity Not on file Sexual [...] Type 2 diabetes mellitus without complication, unspecified detention insulin use status (CMS/HCC) BASIC METABOLIC PANEL Routine 04/04/2017 8:54 AM CDT Benign hypertension documented in this encounter Results * eGFR (04/04/2017 8:54 AM CDT) Pathologist [facility] eGFR 53 mL/min/1.7 3 m2 [facility] [...] BLOOD ORDERABLES Final Res ult [facility] [address] Department [place] [address] * (ABNORMAL) Lipid panel with reflex to direct LDL (04/04/2017 8:54 AM CDT) Cholesterol 118 100 - 200 mg/dL [facility] Comment: Interpretive Data Desirable: ?<200 mg/dL Borderline high: ??200-239 mg/dL High: ? >240 mg/dL Current interpretive data was last revised on 2016. Triglycerides 109 10 - 150 mg/dL [facility] Comment: Interpretive Data Desirable: ? < 150 ? mg/dL Borderline High: ? 150 - 199 mg/dL High: ?200 - 499 mg/dL Very High: ? > or = 499 ??mg/dL Current interpretive data was last revised on 2016. HDL 35(L) 40 - 59 mg/dL [facility] Comment: Interpretive Data Less than 40 mg/dL - Low; A major risk factor for heart disease. Greater than or equal to 60 mg/dL - High; ??Considered protective of heart disease. Current interpretive data was last revised on 2016. LDL, calculated 61 60 - 129 mg/dL [facility] Comment: Interpretive Data Optimal: ? < 100 mg/dL Near Optimal: ?100 - 129 mg/dL Borderline High: ?? 130 - 159 mg/dL High: ?> 160 mg/dL Current interpretive data was last revised on 2016. Chol/HDL ratio 3 mg/dL [facility] Blood specimen (specimen) 04/04/2017 8:54 AM CDT 04/04/2017 4:15 PM CDT us Wesley Em MD LAB BLOOD ORDERABLES Final Res ult [facility] [address] [address] Department [place] [address] * (ABNORMAL) Basic metabolic panel (04/04/2017 8:54 AM CDT) Sodium 146(H) 135 - 145 mmol/L [facility] Potassium, pl 4.0 3.5 - 5.1 mmol/L [facility] Chloride 111 100 - 114 mmol/L [facility] CO2 27 22 - 32 mmol/L [facility] BUN 19 8 - 24 mg/dL [facility] Glucose 114 70 - 199 mg/dL [facility] Creatinine 1.34 0.70 - 1.40 mg/dL [facility] Calcium 9.0 8.4 - 10.5 mg/dL [facility] Anion gap 12 8 - 16 mmol/L [facility] Blood specimen (specimen) 04/04/2017 8:54 AM CDT 04/04/2017 4:15 PM CDT Wesley Em MD LAB BLOOD ORDERABLES Final Res ult Performing Organization Address [facility] de Phone Number [facility] [address] [address] Department [facility] [place] [address] * (ABNORMAL) Hemoglobin A1c (04/04/2017 8:54 AM CDT) Hgb A1C 6.1(H) 4.0 - 6.0 % [facility] Comment: Interpretive Data Hemoglobin A1c ADA Interpretive Guidelines ??<7% ?? Glycemia controlled ??>8% ?? Hyperglycemia, additional action recommended Estrada Immunochemical Method Current interpretive data was last revised on 2015 Testing performed by: [facility], [place] [address] Estimated Average Glucose 128 mg/dL [facility] Comment:Testing performed by : [facility], [place] [address] Blood specimen (specimen) 04/04/2017 8:54 AM CDT 04/04/2017 7:37 PM CDT Wesley Em MD LAB BLOOD ORDERABLES Final Res ult Performing Organization Address [facility] de Phone Number [facility] [address] Department [place] [address] documented in this encounter Visit Diagnoses Diagnosis Type 2 diabetes mellitus 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
--- OUTSIDE RECORDS SUMMARY | 2024-06-18 19:19 | XMS_ITS | Encounter Summary ---
Author Organization [facility] Healthcare Address [address] [place] [address] Care Team Providers Care Arbor End Mainspring Former Name Role Phone Wesley Em MD Primary Care Provider [phone] Encounter Details Date Type Department Care Team (Late st Contact Info) Description 12/14/2016 12:00 PM CDT Lab [address] [address] Mixed hyperlipidemia; Disorder of prostate; Diabetes mellitus without complication (CMS/HCC) Social History Tobacco Use Types Packs/Day Years Used Date Smoking Tobacco: Former Alcohol Use Standard Drinks/Week Comments No 0 (1 standard drink = 0.6 oz pur e alcohol) Sex and Gender Information Value Date Recorded Sex Assigned at Not on file 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 [facility] Comment:Testing performed by : [facility], [address] [place]., [address] Urine 12/14/2016 8:03 AM CDT 12/14/2016 5:42 PM CDT Narrative [facility] - 12/15/2016 10:52 AM CDT Received in transport media. us Wesley Em MD LAB MICROBIOLOGY - GENERAL ORD ERABLES Final Result [facility] [address] Department [place] [address] * (ABNORMAL) Urinalysis, microscopic (12/14/2016 8:03 AM CDT) RBC, ur 2 0 - 3 /HPF [facility] WBC, ur 45(H) 0 - 5 /HPF [facility] Bacteria, ur Trace [facility] Epithelial cells, renal, ur 0 0 - 0 /HPF [facility] Epithelial cells, squamous, ur <1 /LPF [facility] Mucus, ur Present [facility] Hyaline casts, ur 2(H) 0 - 0 /LPF [facility] Urine 12/14/2016 8:03 AM CDT 12/14/2016 12:27 PM CDT us Wesley Em MD LAB URINE ORDERABLES Final Res ult [facility] [address] [address] Department [place] [address] * eGFR (12/14/2016 8:03 AM CDT) eGFR 61 mL/min/1.7 3 m2 [facility] Comment: Interpretive Data Reference Interval Normal ?>/= 90 mL/min/1.73m2 Mildly decreased* ? 60 - 89 mL/min/1.73m2 Mildly to moderately decreased ?45 - 59 mL/min/1.73m2 Moderately to severely decreased ??30 - 44 mL/min/1.73m2 Severely decreased ?15 - 29 mL/min/1.73m2 Kidney Failure ?< 15 ??mL/min/1.73m2 *Relative to young adult level If -Israeli multiply value by 1.16. Estimated glomerular filtration [...] ORDERABLES Final Res ult Performing Organization Address [facility] [address]/[facility] de Phone Number [facility] [address] Department [place] [address] * (ABNORMAL) Differential, auto (12/14/2016 8:03 AM [...] ORDERABLES Final Res ult Performing Organization Address [facility] [address]/[facility] Co de Phone Number [facility] [address] [place] [address] * PSA diagnostic (12/14/2016 8:03 AM CDT) PSA-Total 3.26 0.10 - 4.00 ng/mL [facility] Blood specimen (specimen) 12/14/2016 8:03 AM CDT 12/14/2016 12:28 PM CDT Wesley Em MD LAB BLOOD ORDERABLES Final Res ult Performing Organization Address [facility] Phone Number [facility] [address] [facility] [place] [address] * (ABNORMAL) Microalbumin, urine, random (12/14/2016 8:03 AM CDT) Microalbumin, ur 175.0(H) 0.0 - 29.9 mcg/mL [facility] Creatinine, ur 261.28 mg/dL [facility] Microalbumin/crea t ratio 67.0(H) 0.0 - 29.9 mcg/mg Cr [facility] Comment:Interpretive Data No rmal: < 30 mcg/mg Microalbuminuria: 30 - 300 mcg/mg Clinical Albuminuria: 300 mcg/mg Current interpretive data was last reviewed 2015 Urine 12/14/2016 8:03 AM CDT 12/14/2016 12:27 PM CDT Wesley Em MD LAB URINE ORDERABLES Final Res ult Performing Organization Address [facility] Phone Number [facility] [address] Department [place] [address] * Hemoglobin A1c (12/14/2016 8:03 AM CDT) Hgb A1C 5.9 4.0 - 6.0 % [facility] Comment: Interpretive Data Hemoglobin A1c ADA Interpretive Guidelines ?? <7% ?? Glycemia controlled ?? >8% ?? Hyperglycemia, additional action recommended Estrada Immunochemical Method Current interpretive data was last revised on 2015 [facility]: [facility] [address] [place] [address] Estimated Average Glucose 123 mg/dL [facility] Comment:Testing performed by : [facility], [place] [address] Blood specimen (specimen) 12/14/2016 8:03 AM CDT 12/14/2016 6:13 PM CDT Wesley Em MD LAB BLOOD ORDERABLES Final Res ult Performing Organization Address [facility] [address]/ZIP Co de Phone Number [facility] [address] [address] Department [place] [address] * (ABNORMAL) Lipid panel (12/14/2016 8:03 AM CDT) Cholesterol 119 100 - 200 mg/dL [facility] Comment:Interpretive Data De sirable: <200 mg/dL Borderline high: 200-239 mg/dL High: >240 mg/dL Current interpretive data was last revised on 2016. Triglycerides 107 10 - 150 mg/dL [facility] Comment:Interpretive Data De sirable: < 150 mg/dL Borderline High: 150 - 199 mg/dL High: 200 - 499 mg/dL Very High: > or = 499 mg/dL Current interpretive data was last revised on 2016. HDL 34(L) 40 - 59 mg/dL [facility] Comment:Interpretive Data Le ss than 40 mg/dL - Low; A major risk factor for heart disease. Greater than or equal to 60 mg/dL - High; Considered protective of heart disease. Current interpretive data was last revised on 2016. LDL, calculated 64 60 - 129 mg/dL [facility] Comment:Interpretive Data Op timal: < 100 mg/dL Near Optimal: 100 - 129 mg/dL Borderline High: 130 - 159 mg/dL High: > 160 mg/dL Current interpretive data was last revised on 2016. Non-HDL Cholesterol 85 mg/dL [facility] Comment:Interpretive Data Wh en triglycerides are >200 mg/dL, non-HDL C is a secondary target of therapy, with a goal 30 mg/dL higher than the identified LDL-C goal. Current interpretive data was last revised 2016. Blood specimen (specimen) 12/14/2016 8:03 AM CDT 12/14/2016 12:28 PM CDT us Wesley Em MD LAB BLOOD ORDERABLES Final Res ult [facility] [address] [place] [address] * (ABNORMAL) Urinalysis reflex to microscopic and [...] - GENERAL ORD ERABLES Final Result [facility] [address] [place] [address] * CBC with auto differential (12/14/2016 8:03 [...] BLOOD ORDERABLES Final Res ult [facility] [address] [facility] [place], [place] [id number] * Comprehensive metabolic panel (12/14/2016 8:03 AM [...] BLOOD ORDERABLES Final Res ult [facility] [address] [place] [address] documented in this encounter Visit Diagnoses Diagnosis Mixed hyperlipidemia Disorder of prostate Unspecified disorder of prostate Diabetes mellitus without complication (CMS/HCC) (HCC) Type II or unspecified type diabetes mellitus without mention of complication, not stated as uncontrolled documented in this encounter Care Teams Arbor End Mainspring Former Relationship Specialty Start Date End Date Wesley Em MD PCP - General 09/30/16 12/01/21 documented as of this encounter
--- OUTSIDE RECORDS SUMMARY | 2024-06-18 19:19 | XMS_ITS | Encounter Summary ---
Author Organization [facility] Address [address] [place] [address] Care Team Providers Care Rigging Up Worker Name Role Phone Wesley Em MD Primary Care Provider [phone] Encounter Details Date Type Department Care Team (Late st Contact Info) Description 11/04/2016 Orders Only [facility] [address] [place] [phone] Wesley Em MD [address] [place] [address] Social History Tobacco Use Types Packs/Day Years Used Date Smoking Tobacco: Former Alcohol Use Standard Drinks/Week Comments No 0 (1 standard drink = 0.6 oz pur e alcohol) Sex and Gender Information Value Date Recorded Sex Assigned at Not on file 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 Estimated glomerular filtration [...] ORDERABLES Final Res ult Performing Organization Address City/State/[facility] Phone Number [facility] [address] Department [place] [address] documented in this encounter Visit Diagnoses Not on filedocumented in this encounter Care Teams Rigging Up Worker Relationship Specialty Start Date End Date Wesley Em MD PCP - General 09/30/16 12/01/21 documented as of this encounter
--- OUTSIDE RECORDS SUMMARY | 2024-06-18 19:19 | XMS_ITS | Encounter Summary ---
Author Organization [facility] Healthcare Address [address] [place] [address] Care Team Providers Care Manager Wholesale Name Role Phone Wesley Em MD Primary Care Provider [phone] Encounter Details Date Type Department Care Team (Late st Contact Info) Description 02/22/2017 10:56 AM CDT - 02/22/2017 2:35 PM CDT Hospital Encounter [facility] OP INTERIM Albert Craft MD [address] [place] [address] Discharge Disposition: Discharge to home or self care Social History Tobacco Use Types Packs/Day Years Used Date Smoking Tobacco: Former Smokeless Tobacco: Never Alcohol Use Standard Drinks/Week Comments No 0 (1 standard drink = 0.6 oz pur e alcohol) Sex and Gender Information Value Date Recorded Sex Assigned at Not on file Legal Sex Male 6:00 PM DIRECTOR 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 Patient Type: [facility] SDS [...] determined by the Surgical Pathology Department at [facility] as part of an ongoing quality measurement specialist program and in compliance with federally mandated [...] characteristics determined by the Surgical Pathology Department [facility]. ??It has not been cleared or [...] filedocumented in this encounter Care Teams Manager Wholesale Relationship Specialty Start Date End Date Wesley Em MD PCP - General 09/30/16 12/01/21 documented as of this encounter
--- OUTSIDE RECORDS SUMMARY | 2024-06-18 19:19 | XMS_ITS | Encounter Summary ---
Author Organization [facility] Healthcare Address [address] [place] [address] Care Team Providers Care Commercial Front Load Driver Name Role Phone Wesley Em MD Primary Care Provider Encounter Details Date Type Department Care Team (Late st Contact Info) Description 04/04/2017 8:54 AM CDT - 04/04/2017 11:59 PM CDT Hospital Encounter [facility] OP INTERIM Wesley Em MD [address] [place] [address] Discharge Disposition: Discharge to home or self care Social History Tobacco Use Types Packs/Day Years Used Date Smoking Tobacco: Former Smokeless Tobacco: Never Alcohol Use Standard Drinks/Week Comments No 0 (1 standard drink = 0.6 oz pur e alcohol) Sex and Gender Information Value Date Recorded Sex Assigned at Not on file 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
--- OUTSIDE RECORDS SUMMARY | 2024-06-18 19:19 | XMS_ITS | Encounter Summary ---
Author Organization [facility] Healthcare Address [address] [place] [address] Care Team Providers Care Habitat Biologist Name Role Phone Wesley Em MD Primary Care Provider [phone] Encounter Details Date Type Department Care Team (Late st Contact Info) Description 10/23/2016 Orders Only [facility] [phone] Albert Craft MD [address] [place], [place] [id number] Social History Tobacco Use Types Packs/Day Years Used Date Smoking Tobacco: Former Alcohol Use Standard Drinks/Week Comments No 0 (1 standard drink = 0.6 oz pur e alcohol) Sex and Gender Information Value Date Recorded Sex Assigned at Not on file Legal 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 60 - 89 mL/min/1.73m2 Mildly to moderately decreased ?45 - 59 mL/min/1.73m2 Moderately to severely decreased ??30 - 44 mL/min/1.73m2 Severely decreased ?15 - 29 mL/min/1.73m2 Kidney Failure ?< 15 ??mL/min/1.73m2 *Relative to young adult level If -Congolese multiply value by 1.16. Estimated glomerular filtration [...] BLOOD ORDERABLES Final Result Performing Organization Address City/State/[facility] Phone Number [facility] [place]) [address] [facility] Department of Laboratories [place], [place] [phone] documented in this encounter Visit Diagnoses Not on filedocumented in this encounter Care Teams Habitat Biologist Relationship Specialty Start Date End Date Wesley Em MD PCP - General 09/30/16 12/01/21 documented as of this encounter
--- OUTSIDE RECORDS SUMMARY | 2024-06-18 19:19 | XMS_ITS | Encounter Summary ---
Author Organization [facility] Healthcare Address [address] [place] [address] Care Team Providers Care Lift Driver Name Role Phone Wesley Em MD Primary Care Provider [phone] Encounter Details Date Type Department Care Team (Late st Contact Info) Description 12/24/2016 9:30 PM CDT - 12/24/2016 10:43 PM CDT Emergency [facility] Emergency Department [address] [place] [address] Jose De Jesus Rushing Jr., MD [address] [place] [address] Discharge Disposition: Discharge to home or self care Social History Tobacco Use Types Packs/Day Years Used Date Smoking Tobacco: Former Alcohol Use Standard Drinks/Week Comments No 0 (1 standard drink = 0.6 oz pur e alcohol) Sex and Gender Information Value Date Recorded Sex Assigned at Not on file Legal 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
--- OUTSIDE RECORDS SUMMARY | 2024-06-18 19:19 | XMS_ITS | Encounter Summary ---
Author Organization [facility] Healthcare Address [address] [place] [address] Care Team Providers Care Seat Cover Installer Name Role Phone Wesley Em MD Primary Care Provider [phone] Encounter Details Date Type Department Care Team (Late st Contact Info) Description 11/03/2016 Orders Only [facility] Physicians [address] [place] [address] Roger Hoskins MD [address] [facility] [address] [place] [address] Social History Tobacco Use Types Packs/Day Years Used Date Smoking Tobacco: Former Alcohol Use Standard Drinks/Week Comments No 0 (1 standard drink = 0.6 oz pur e alcohol) Sex and Gender Information Value Date Recorded Sex Assigned at Not on file 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
--- OUTSIDE RECORDS SUMMARY | 2024-06-18 19:19 | XMS_ITS | Encounter Summary ---
Author Organization [facility] Address [address] [place] [address] Care Team Providers Care Nursing Support Worker Name Role Phone Wesley Em MD Primary Care Provider [phone] Encounter Details Date Type Department Care Team (Late st Contact Info) Description 10/23/2016 Orders Only [facility] [address] [place] [phone] Kathleen Lundberg MD [address] [id number] Social History Tobacco Use Types Packs/Day Years Used Date Smoking Tobacco: Former Alcohol Use Standard Drinks/Week Comments No 0 (1 standard drink = 0.6 oz pur e alcohol) Sex and Gender Information Value Date Recorded Sex Assigned at Not on file 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 [place] [address] documented in this encounter Visit Diagnoses Not on filedocumented in this encounter Care Teams Nursing Support Worker Relationship Specialty Start Date End Date Wesley Em MD PCP - General 09/30/16 12/01/21 documented as of this encounter
--- OUTSIDE RECORDS SUMMARY | 2024-06-18 19:19 | XMS_ITS | Encounter Summary ---
Author Organization [facility] Address [address] [place] [address] Care Team Providers Care Transplant Surgeon Name Role Phone Wesley Em MD Primary Care Provider [phone] Encounter Details Date Type Department Care Team (Late st Contact Info) Description 11/04/2016 Orders Only [facility] 2 [facility] [address] [place] [phone] Wesley Em MD [address] [place] [address] Social History Tobacco Use Types Packs/Day Years Used Date Smoking Tobacco: Former Alcohol Use Standard Drinks/Week Comments No 0 (1 standard drink = 0.6 oz pur e alcohol) Sex and Gender Information Value Date Recorded Sex Assigned at Not on file 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 Hgb 13.5 13.0 - 17.5 g/dL [facility] Hct 40.7 38.9 - 50.3 % [facility] MCV 87.2 81.3 - 96.4 fL [facility] MCH 28.9 27.1 - 33.3 pg [facility] MCHC 33.2 32.3 - 35.7 g/dL [facility] RDW CV 13.9 11.1 - 14.9 % [facility] RDW SD 43.7 35.7 - 48.1 fL [facility] Plt 175 150 - 400 K/cumm [facility] MPV 10.8 9.1 - 12.3 fL [facility] NRBC 0.0 0.0 - 0.2 % [facility] NRBC abs 0.00 0.00 - 0.01 K/cumm [facility] Blood specimen (specimen) 11/04/2016 8:55 AM CDT 11/04/2016 10:07 AM CDT us Wesley Em MD LAB BLOOD ORDERABLES Final Res ult [facility] [address] Department [place] [address] documented in this encounter Visit Diagnoses Not on filedocumented in this encounter Care Teams Transplant Surgeon Relationship Specialty Start Date End Date Wesley Em MD PCP - General 09/30/16 12/01/21 documented as of this encounter
--- OUTSIDE RECORDS SUMMARY | 2024-06-18 19:19 | XMS_ITS | Encounter Summary ---
Author Organization [facility] Address [address] [place] [address] Care Team Providers Care Sap Bobj Developer Name Role Phone Wesley Em MD Primary Care Provider [phone] Reason for Visit * Reason Comments Hearing Loss AU Dizziness Noise Exposure machinery Encounter Details Date Type Department Care Team (Late st Contact Info) Description 04/26/2017 1:30 PM CDT Procedure visit [facility] [address] [facility] [address] [place] [phone] Prema Epperson Au.D. 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
--- OUTSIDE RECORDS SUMMARY | 2024-06-18 19:19 | XMS_ITS | Encounter Summary ---
Author Organization [facility] Healthcare Address [address] [place] [address] Care Team Providers Care Aircraft Structural Design Engineer Name Role Phone Wesley Em MD Primary Care Provider [phone] Encounter Details Date Type Department Care Team (Late st Contact Info) Description 12/14/2016 8:03 AM CDT - 12/14/2016 11:59 PM CDT Hospital Encounter [facility] OP INTERIM Wesley Em MD [address] [place] [address] Discharge Disposition: Discharge to home or self care Social History Tobacco Use Types Packs/Day Years Used Date Smoking Tobacco: Former Alcohol Use Standard Drinks/Week Comments No 0 (1 standard drink = 0.6 oz pur e alcohol) Sex and Gender Information Value Date Recorded Sex Assigned at Not on file 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 [facility] Provider LAB BLOOD ORDERABLES Iwona l Result * DISCHARGE LABORATORY CUMULATIVE REPORT (12/14/2016) Provider Scanning LAB BLOOD ORDERABLES Final Res ult documented in this encounter Visit Diagnoses Not on filedocumented in this encounter Care Teams Aircraft Structural Design Engineer Relationship Specialty Start Date End Date Wesley Em MD PCP - General 09/30/16 12/01/21 documented as of this encounter
--- OUTSIDE RECORDS SUMMARY | 2024-06-18 19:19 | XMS_ITS | Encounter Summary ---
Author Organization [facility] Healthcare Address [address] [place] [address] Care Team Providers Care Medic Technician Name Role Phone Wesley Em MD Primary Care Provider [phone] Encounter Details Date Type Department Care Team (Late st Contact Info) Description 02/06/2017 10:22 AM CDT - 02/06/2017 11:59 PM CDT Hospital Encounter [facility] OP INTERIM Roger Hoskins MD [address] [place] [address] Discharge Disposition: Discharge to home or self care Social History Tobacco Use Types Packs/Day Years Used Date Smoking Tobacco: Former Smokeless Tobacco: Never Alcohol Use Standard Drinks/Week Comments No 0 (1 standard drink = 0.6 oz pur e alcohol) Sex and Gender Information Value Date Recorded Sex Assigned at Not on file 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 Gender Identity Not on file Sexual [...] MD LAB BLOOD ORDERABLES Fin al Result [facility] ([place]) 1 [facility] Department [place] [address] * (ABNORMAL) Basic metabolic panel (02/06/2017 10:50 AM CDT) Sodium 140 135 - 145 mmol/L [facility] ([place]) Potassium 4.0 3.5 - 5.1 mmol/L [facility] ([place]) Chloride 104 97 - 110 mmol/L [facility] ([place] CO2 22 22 - 32 mmol/L [facility] ([place]) Anion gap 14 8 - 16 mmol/L [facility] ([place]) Glucose 153 70 - 199 mg/dL [facility] ([place]) Comment: Interpretive Data Note:The [...] AM CDT 02/06/2017 11:25 AM CDT Narrative [facility] ([place]) - 02/06/2017 12:13 PM CDT 1 [place] us Roger Hoskins MD LAB BLOOD ORDERABLES Fin al Result [facility] ([place]) 1 [facility] Department [place] [address] * POCT CBC (02/06/2017 10:50 AM CDT) [...] KATHLEEN Final Result [facility] ([place]) 1 [facility] Department [place] [address] documented in this encounter Visit Diagnoses Not on filedocumented in this encounter Care Teams Medic Technician Relationship Specialty Start Date End Date Wesley Em MD PCP - General 09/30/16 12/01/21 documented as of this encounter
--- OUTSIDE RECORDS SUMMARY | 2024-06-18 19:19 | XMS_ITS | Encounter Summary ---
Author Organization [facility] Address [address] [place] [address] Care Team Providers Care Stone Circular Sawyer Name Role Phone Wesley Em MD Primary Care Provider [phone] Encounter Details Date Type Department Care Team (Late st Contact Info) Description 12/14/2016 7:45 AM CDT Lab [facility] [address] [place] [address] [address] [place] [phone] Social History Tobacco Use Types Packs/Day Years Used Date Smoking Tobacco: Former Alcohol Use Standard Drinks/Week Comments No 0 (1 standard drink = 0.6 oz pur e alcohol) Sex and Gender Information Value Date Recorded Sex Assigned at Not on file 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
--- OUTSIDE RECORDS SUMMARY | 2024-06-18 19:19 | XMS_ITS | Encounter Summary ---
Author Organization [facility] Address [address] [facility] [address] [place] [address] Care Team Providers Care Rayon Tester Name Role Phone Wesley Em MD Primary Care Provider [phone] Reason for Visit * Reason Comments Follow-up 3 mon fu on hyperten ted Earache knot behind left ear Encounter Details Date Type Department Care Team (Late st Contact Info) Description 04/18/2017 10:15 AM CDT Office Visit [place] [facility] 2 [facility] [address] [place] [address] Wesley Em MD [address] [place] [address] [address] [place] [address] Type 2 diabetes mellitus without complication, without long-term current use of insulin ([facility]) (Primary Dx); BMI 28.0-28.9,adult; Essential hypertension; Mixed hyperlipidemia; H/O polycythemia Social History Tobacco Use Types Packs/Day Years Used Date Smoking Tobacco: Former Smokeless Tobacco: Never Alcohol Use Standard Drinks/Week Comments No 0 (1 standard drink = 0.6 oz pur e alcohol) Sex and Gender Information Value Date Recorded Sex Assigned at Not on file 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
--- OUTSIDE RECORDS SUMMARY | 2024-06-18 19:19 | XMS_ITS | Encounter Summary ---
Author Organization [facility] Healthcare Address [address] [place] [address] Care Team Providers Care Delivery Driver/Supervisor Name Role Phone Wesley Em MD Primary Care Provider [phone] Encounter Details Date Type Department Care Team (Late st Contact Info) Description 11/03/2016 10:14 AM CDT - 11/03/2016 11:59 PM CDT Hospital Encounter [facility] OP INTERIM Roger Hoskins MD [address] [place] [address] Discharge Disposition: Discharge to home or self care Social History Tobacco Use Types Packs/Day Years Used Date Smoking Tobacco: Former Alcohol Use Standard Drinks/Week Comments No 0 (1 standard drink = 0.6 oz pur e alcohol) Sex and Gender Information Value Date Recorded Sex Assigned at Not on file 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
--- OUTSIDE RECORDS SUMMARY | 2024-06-18 19:19 | XMS_ITS | Encounter Summary ---
Author Organization [facility] Healthcare Address [address] [place] [address] Care Team Providers Care Tube Room Cashier Name Role Phone Wesley Em MD Primary Care Provider [phone] Encounter Details Date Type Department Care Team (Latest Contact Info) Description 03/22/2017 8:59 AM CDT - 03/22/2017 11:59 PM CDT Hospital Encounter [facility] OP INTERIM Lee Pierre MD [address] [address] Discharge Disposition: Discharge to home or self care Social History Tobacco Use Types Packs/Day Years Used Date Smoking Tobacco: Former Smokeless Tobacco: Never Alcohol Use Standard Drinks/Week Comments No 0 (1 standard drink = 0.6 oz pur e alcohol) Sex and Gender Information Value Date Recorded Sex Assigned at Not on file 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/ZIP Co de Phone Number [facility] ([place]) 1 [facility] [place] [address] * (ABNORMAL) Ferritin (03/22/2017 9:25 AM CDT) Pathologist [facility] Ferritin 20(L) 25 - 320 ng/mL [facility] ([place]) Blood specimen (specimen) 03/22/2017 9:25 AM CDT 03/22/2017 10:12 AM CDT Narrative [facility] ([place]) - 03/22/2017 11:10 AM CDT ADD TO LABS FROM TODAY Lee Pierre MD LAB BLOOD ORDERABLES F inal Result [facility] ([place]) 1 [facility] [place] [address] * eGFR (03/22/2017 9:25 AM CDT) Pathologist [facility] eGFR >60 mL/min/1.7 3 m2 [facility] [...] MD LAB BLOOD ORDERABLES F inal Result [facility] ([place]) 1 [facility] Department [place] [address] * Basic metabolic panel (03/22/2017 9:25 AM CDT) Sodium 142 135 - 145 mmol/L [facility] ([place]) Potassium 3.8 3.5 - 5.1 mmol/L [facility] ([place]) Chloride 105 97 - 110 mmol/L [facility] ([place]) CO2 25 22 - 32 mmol/L [facility] ([place]) Anion gap 12 8 - 16 mmol/L [facility] ([place]) Glucose 124 70 - 199 mg/dL [facility] ([place]) Comment: Interpretive Data Note:The glucose [...] F inal Result [facility] ([place]) 1 [facility] [place] [address] * (ABNORMAL) Iron profile (03/22/2017 [...] F inal Result [facility] ([place]) 1 [facility] Department [place] [address] * Miscellaneous blood result (03/22/2017 9:25 AM CDT) Test name, chem JAKXB JAK2 Exon Mutation Detection, B [facility] ([place]) Misc See Comment [facility] ([place]) Comment: Test ?Result ?Flag ??Unit ??RefValue JAK2 [...] extracted and converted to cDNA, followed by [place] ?sequencing of JAK2, exons 12-15 (see [facility] ?Laboratories Interpretive Handbook for method details). The ?sensitivity of this assay is approximately 20%, such that ?samples containing lower percentages of mutated nucleic ?acid will appear negative. The reference gene transcript ?used for variant annotation is: [id number])[id number]. ?This test was developed and its performance characteristics ?determined by [facility] in a manner consistent with CLIA ?requirements. This test has not been cleared or approved by ?the U.S. Food and Drug Administration. ?Test Performed by: ?[facility] ?[address] [place] [address] Blood specimen (specimen) 03/22/2017 9:25 AM CDT 03/22/2017 10:36 AM CDT us Lee Pierre MD LAB BLOOD ORDERABLES F inal Result [facility] ([place]) 1 [facility] Department [place] [address] * Reticulocytes (03/22/2017 9:25 AM CDT) Retics [...] F inal Result [facility] ([place]) 1 [facility] [place] [address] * POCT CBC (03/22/2017 9:25 AM CDT) [...] ERABLES Final Result [facility] ([place]) 1 [facility] [place] [address] * DISCHARGE LABORATORY CUMULATIVE REPORT (03/22/2017 12:00 AM CDT) Narrative 03/22/2017 12:00 AM CDT Ordered by an unspecified provider. us Historical Provider LAB BLOOD ORDERABLES Iwona l Result documented in this encounter Visit Diagnoses Not on filedocumented in this encounter Care Teams Tube Room Cashier Relationship Specialty Start Date End Date Wesley Em MD PCP - General 09/30/16 12/01/21 documented as of this encounter
--- OUTSIDE RECORDS SUMMARY | 2024-06-18 19:19 | XMS_ITS | Encounter Summary ---
Author Organization [facility] Address [address] [address] Care Team Providers Care Field Placement Director Name Role Phone Wesley Em MD Primary Care Provider [phone] Reason for Visit * Reason Comments Hearing Loss Cyst behind left ear * Consultation (Routine) - Closed Specialty Diagnoses / Procedures Referred By Contdayami villela Referred To Contact Otolaryngology Diagnoses Hearing loss, unspecified hearing loss type, unspecified laterality Wesley Em MD Phone: tel: fax: Jerod Espinoza DO Phone: tel: fax: Referral ID Status Reason Start Date Expiration Date V isits Requested Visits Authorized [id number] Closed Specialty Services Required 04/18/2017 10/15/2017 1 1 Encounter Details Date Type Department Care Team (Late st Contact Info) Description 04/26/2017 2:00 PM CDT Office Visit [facility] [address] [facility] [address] [place] [phone] Jerod Espinoza DO [address] [place] [address] Preauricular cyst (Primary Dx); Hearing loss, unspecified [...] on file Legal Sex Male 6:00 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 ?? Assistive listening devices (ALDs) cotton picker operator sound and send it through earphones or [...] refuse treatment. The above information is an special education educational assistant only. It is not intended as medical advice for individual conditions or treatments. Talk to your doctor, nurse or pharmacist before following any medical regimen to see if it is safe and effective for you. ?? 2016 [employer]. Information is for End User's use only and may not be sold, redistributed or otherwise used for commercial purposes. All illustrations and images included in CareNotes?? are the copyrighted property of [employer]. or [employer]. NISATION AND METHODS ANALYST NISATION AND METHODS ANALYST documented in this encounter Ordered Prescriptions Prescription [...] severe to profound sensorineural hearing loss. Speech nurse receptionist thresholds were 40 decibels hearing level left [...] 04/26/2017 documented in this encounter Care Teams Field Placement Director Relationship Specialty Start Date End Date Wesley Em MD PCP - General 09/30/16 12/01/21 documented as of this encounter
--- OUTSIDE RECORDS SUMMARY | 2024-06-18 19:19 | XMS_ITS | Encounter Summary ---
Author Organization [facility] Address [address] [facility] [address] [place] [address] Care Team Providers Care Line Prep Cook Name Role Phone Wesley Em MD Primary Care Provider [phone] Reason for Visit * Reason Comments Follow-up FNA biopsy of preaur icular cyst Encounter Details Date Type Department Care Team (Late st Contact Info) Description 06/02/2017 9:10 AM DENTAL SERVICE CHIEF Office Visit [facility] [address] [place] [address] [address], [place] [address] Jerod Espinoza, DO [facility] [place] [address] Sebaceous cyst (Primary Dx) Social History Tobacco Use Types Packs/Day Years Used Date Smoking Tobacco: Former Smokeless Tobacco: Never Alcohol Use Standard Drinks/Week Comments No 0 (1 standard drink = 0.6 oz pur e alcohol) Sex and Gender Information Value Date Recorded Sex Assigned at Not on file Legal Sex Male 6:00 PM DENTAL SERVICE CHIEF Gender Identity Not on file Sexual Orientation Straight 01/23/2021 10 :16 PM CDT documented as of this encounter Last Filed Vital Signs Vital Sign Reading Time Taken Comments Blood Pressure - - Pulse - - Temperature - - Respiratory Rate 18 06/02/2017 9:19 AM DENTAL SERVICE CHIEF Oxygen Saturation - - Inhaled Oxygen Concentration - - Weight 84.8 kg (187 lb) 06/02/2017 9:19 AM DENTAL SERVICE CHIEF Height 174 cm (5' 8.5 ) 06/02/2017 9:19 AM DENTAL SERVICE CHIEF Body Mass Index 28.02 06/02/2017 9:19 AM DENTAL SERVICE CHIEF documented in this encounter Progress Notes * [...] otherwise follow back up with as needed. AL SERVICE CHIEF documented in this encounter Miscellaneous Notes * Assessment & Plan Note - Jerod Espinoza DO - 06/11/2017 5:13 PM DENTAL SERVICE CHIEF Associated Problem(s): Sebaceous cyst (Resolved 2017) Discussed [...] otherwise follow back up with as needed. AL SERVICE CHIEF documented in this encounter Plan of Treatment Not on file documented as of this encounter Visit Diagnoses Diagnosis Sebaceous cyst- Primary documented in this encounter Care Teams Line Prep Cook Relationship Specialty Start Date End Date Wesley Em MD PCP - General 09/30/16 12/01/21 documented as of this encounter
--- OUTSIDE RECORDS SUMMARY | 2024-06-18 19:19 | XMS_ITS | Encounter Summary ---
Author Organization [facility] Address [address] [address] [facility] [address] [place] [address] Care Team Providers Care Geospatial Program Management Officer Name Role Phone Wesley Em MD Primary Care Provider [phone] Encounter Details Date Type Department Care Team (Late st Contact Info) Description 10/25/2016 Orders Only [place] [facility] 2 [facility] [address] [place] [phone] Wesley Em MD [address] [place] [id number] Social History Tobacco Use Types Packs/Day Years Used Date Smoking Tobacco: Former Alcohol Use Standard Drinks/Week Comments No 0 (1 standard drink = 0.6 oz pur e alcohol) Sex and Gender Information Value Date Recorded Sex Assigned at Not on file 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 Estimated glomerular filtration [...] ORDERABLES Final Res ult Performing Organization Address City/State/[facility] Phone Number [facility] [address] Department of Laboratories [place], [place] [phone] documented in this encounter Visit Diagnoses Not on filedocumented in this encounter Care Teams Geospatial Program Management Officer Relationship Specialty Start Date End Date Wesley Em MD PCP - General 09/30/16 12/01/21 documented as of this encounter
--- OUTSIDE RECORDS SUMMARY | 2024-06-18 19:19 | XMS_ITS | Encounter Summary ---
Author Organization [facility] Medical Group Address [address] [facility] [address] [place] [address] Care Team Providers Care Mathematics Professor Name Role Phone Wesley Em MD Primary Care Provider Encounter Details Date Type Department Care Team (Late st Contact Info) Description 11/04/2016 Orders Only [place] [facility] 2 [facility] [address] [place] [phone] Wesley Em MD [address] [place] [address] Social History Tobacco Use Types Packs/Day Years Used Date Smoking Tobacco: Former Alcohol Use Standard Drinks/Week Comments No 0 (1 standard drink = 0.6 oz pur e alcohol) Sex and Gender Information Value Date Recorded Sex Assigned at Not on file Legal Sex Male 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
--- OUTSIDE RECORDS SUMMARY | 2024-06-18 19:19 | XMS_ITS | Encounter Summary ---
Author Organization [facility] Medical Group Address [address] [address] Care Team Providers Care Steel Barrel Reamer Name Role Phone Wesley Em MD Primary Care Provider [phone] Reason for Referral * Consultation (Routine) - Closed Specialty Diagnoses / Procedures Referred By Jomar villela Referred To Contact Gastroenterology Diagnoses Medicare annual wellness visit, subsequent Wesley Em MD Phone: tel: fax: Referral ID Status Reason Start Date Expiration Date V isits Requested Visits Authorized [id number] Closed Specialty Services Required 12/27/2016 06/25/2017 1 1 Comments Refer to [facility] for follow up colonoscopy/egd Dx barretts esophagus * Surgical (Routine) - Closed Specialty Diagnoses / Procedures Referred By Jomar villela Referred To Contact Orthopedic Surgery Diagnoses Biceps tendon rupture, left, initial encounter Wesley Em MD Phone: tel: fax: Yo Schaefer MD Phone: tel: fax: Referral ID Status Reason Start Date Expiration Date V isits Requested Visits Authorized [id number] Closed Specialty Services Required 12/26/2016 06/24/2017 1 1 Reason for Visit * Reason Comments Medicare Wellness Encounter Details Date Type Department Care Team (Late st Contact Info) Description 12/26/2016 3:45 PM CDT Office Visit [facility] 2 [facility] [address] [place] [phone] Wesley mE MD 2 [facility] [address] [place] [address] Medicare annual wellness visit, subsequent (Primary Dx); Type 2 diabetes mellitus without complication, without long-term current use of insulin ([facility]/HCC); Essential hypertension; Mixed hyperlipidemia; 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 He is agreeable see [facility] for evaluation and stands he may need surgery for this if he lessto go could lead to permanent disability in his left upper extremity patient is right handed. His diabetes has been under good control with A1c test of 5.9 he has no hypoglycemic spells he understands he should be seen drug discovery informatics specialist yearly but has been putting that [...] and benefits of immunizations completely medical surgical [place] hypertension hyperlipidemia coronary disease with stent placement x3 2013 diabetes tobacco abuse history bilateral total knee surgeries bilateral carpal tunnel release family social history lives in [facility] he is retired from [employer] we worked for 40 years he has [...] complication, without long-term current use of insulin ([facility]) 3. Essential hypertension 4. Mixed hyperlipidemia 5. 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 Kidney stones 7. BPH with urinary obstruction 8. Chronic obstructive pulmonary disease, unspecified COPD type ([facility]) 9. Biceps tendon rupture, left, [...] on: 08/07/2017 04:16 PM Modules accepted: Orders EOLOGIST documented in this encounter Plan of Treatment [...] encounter Results * URINE MICROALBUMNIN (12/14/2016) Pathologist [facility] SCRIBED Microalbumin 175.0 [facility] Provider HEALTH MAINTENANCE Final Result * DIABETES FOOT EXAM (08/18/2016) Diabetic Foot Exam Unknown [facility] Provider HEALTH MAINTENANCE Final Result * COLONOSCOPY (07/26/2006) Colonoscopy Abnormal Comment:polyps Anatomical Region Laterality Modality Other [facility] Provider HEALTH MAINTENANCE Final Result documented in this encounter Visit Diagnoses Diagnosis Medicare annual wellness visit, subsequent- Primary Type 2 diabetes mellitus without complication, without long-term current use of insulin ([facility]) (HCC) Essential hypertension Unspecified essential hypertension Mixed hyperlipidemia 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, unspecified vessel or lesion type Kidney stones Calculus of kidney BPH with urinary obstruction Hypertrophy of prostate with urinary obstruction and other lower urinary tract symptoms (LUTS) Chronic obstructive pulmonary disease, unspecified COPD type ([facility]) Biceps tendon rupture, left, initial encounter [facility] esophagus with dysplasia documented in this encounter Discontinued Medications Medication Sig Discontinue Reason Start Date End Da te cloNIDine (CATAPRES) 0.2 mg tablet take 1 tablet (0.2MG) by oral route bid Error 08/13/2012 12/26/2016 documented as of this encounter Care Teams Steel Barrel Reamer Relationship Specialty Start Date End Date Wesley Em MD PCP - General 09/30/16 12/01/21 documented as of this encounter
--- OUTSIDE RECORDS SUMMARY | 2024-06-18 19:19 | XMS_ITS | Encounter Summary ---
Author Organization [facility] Healthcare Address [address] [place] [address] Care Team Providers Care Police Academy Instructor Name Role Phone Wesley Em MD Primary Care Provider [phone] Encounter Details Date Type Department Care Team (Late st Contact Info) Description 10/25/2016 10:46 AM CDT - 10/25/2016 11:59 PM CDT Hospital Encounter [facility] INTERIM Wesley Em MD [address] [place] [address] Discharge Disposition: Discharge to home or self care Social History Tobacco Use Types Packs/Day Years Used Date Smoking Tobacco: Former Alcohol Use Standard Drinks/Week Comments No 0 (1 standard drink = 0.6 oz pur e alcohol) Sex and Gender Information Value Date Recorded Sex Assigned at Not on file 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
--- OUTSIDE RECORDS SUMMARY | 2024-06-18 19:19 | XMS_ITS | Encounter Summary ---
Author Organization [facility] Medical Group Address [address] [facility] [address] [place] [address] Care Team Providers Care Rf Manager Name Role Phone Wesley Em MD Primary Care Provider [phone] Encounter Details Date Type Department Care Team (Late st Contact Info) Description 10/25/2016 Orders Only [facility] 2 [facility] [address] [place] [phone] Wesley Em MD [address] [place] [address] Social History Tobacco Use Types Packs/Day Years Used Date Smoking Tobacco: Former Alcohol Use Standard Drinks/Week Comments No 0 (1 standard drink = 0.6 oz pur e alcohol) Sex and Gender Information Value Date Recorded Sex Assigned at Not on file 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
--- OUTSIDE RECORDS SUMMARY | 2024-06-18 19:19 | XMS_ITS | Encounter Summary ---
Author Organization [facility] Address [address] [facility] [address] [place] [address] Care Team Providers Care Ski Instructor Name Role Phone Wesley Em MD Primary Care Provider [phone] Reason for Visit * Reason Comments Follow-up Encounter Details Date Type Department Care Team (Late st Contact Info) Description 02/06/2017 1:30 PM CDT Office Visit 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
--- OUTSIDE RECORDS SUMMARY | 2024-06-18 19:19 | XMS_ITS | Encounter Summary ---
Author Organization [facility] Healthcare Address [address] [place] [address] Care Team Providers Care Serger Name Role Phone Wesley Em MD Primary Care Provider [phone] Encounter Details Date Type Department Care Team (Late st Contact Info) Description 12/12/2016 9:13 AM CDT - 12/12/2016 11:59 PM CDT Hospital Encounter [facility] Sanchez Butterfield MD [address] [facility] [address] [address] Discharge Disposition: Discharge to home or self care Social History Tobacco Use Types Packs/Day Years Used Date Smoking Tobacco: Former Alcohol Use Standard Drinks/Week Comments No 0 (1 standard drink = 0.6 oz pur e alcohol) Sex and Gender Information Value Date Recorded Sex Assigned at Not on file 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 ADDENDUM #1 XR KUB ?[id number] HISTORY: BILATERAL KIDNEY STONES. COMPARISON: None available. [...] ORIGINAL REPORT - ADDENDUM ABOVE XR KUB ?[id number] HISTORY: BILATERAL KIDNEY STONES. COMPARISON: None available. [...] BUTTERFIELD Requesting: ??DR SANCHEZ BUTTERFIELD Requesting Fax: ??[phone] Attending Fax: ??[phone] Attending ID: ??[id number] Requesting ID: ??[id number] Report To 1 ID: ??[id number] Report To 1 Name: ??DR SANCHEZ BUTTERFIELD Report To 1 FAX: ??[phone] NextGen Order #: ?? Procedure Note Miscellaneous, Not In File / Provider, MD Wilian - 12/20/2016 XR KUB [id number] Acc#: [id number] DATE OF EXAM: Dec 12 2016 ADDENDUM #1 XR KUB 10087 HISTORY: BILATERAL KIDNEY STONES. COMPARISON: None available. [...] ORIGINAL REPORT - ADDENDUM ABOVE XR KUB 72948 HISTORY: BILATERAL KIDNEY STONES. COMPARISON: None available. [...] on: Dec 12 2016 10:08A Transcribed by: [facility] On: Dec 12 2016 3:48P Approved Electronically by: REECE OLVERA M.D. on: Dec 12 2016 3:48P Ordering DR: DR SANCHEZ BUTTERFIELD Attending DR: DR SANCHEZ BUTTERFIELD Attending: DR SANCHEZ BUTTERFIELD Requesting: DR SANCHEZ BUTTERFIELD Requesting Attending Attending ID: [id number] Requesting ID: [id number] Report To 1 ID: [id number] Report To 1 Name: DR SANCHEZ BUTTERFIELD Report To 1 FAX: [phone] NextGen Order #: us Not In File Miscellaneous IMG XR PROCEDURES Iwona l Result * CT Abdomen Pelvis WO Contrast (12/12/2016 2:42 PM CDT) Anatomical Region Laterality Modality Body N/A Computed Tomogra phy 12/12/2016 2:42 PM CDT Narrative 12/12/2016 2:[address] [place] ??[id number] ??Acc#: ??[id number] DATE OF EXAM: ??Dec 12 2016 ?? [place] ??[id number] HISTORY: BILATERAL KIDNEY STONES. TECHNIQUE: Helical CT [...] BUTTERFIELD Requesting: ??DR SANCHEZ BUTTERFIELD Requesting Fax: ??[phone] Attending Fax: ??[phone] Attending ID: ??[id number] Requesting ID: ??[id number] Report To 1 ID: ??[id number] Report To 1 Name: ??DR SANCHEZ BUTTERFIELD Report To 1 FAX: ??[phone] NextGen Order #: ?? Procedure Note Miscellaneous, Not In File / Provider, MD Wilian - 12/13/[place] [address] Acc#: [id number] DATE OF EXAM: Dec [address] [place] [address] HISTORY: BILATERAL KIDNEY STONES. TECHNIQUE: Helical CT [...] DR SANCHEZ BUTTERFIELD Requesting Attending Attending ID: [id number] Requesting ID: [id number] Report To 1 ID: [id number] Report To 1 Name: DR SANCHEZ BUTTERFIELD Report To 1 FAX: [phone] NextGen Order #: us Not In File [...] ??mL/min/1.73m2 *Relative to young adult level If -German multiply value by 1.16. Estimated glomerular filtration [...] MD LAB BLOOD ORDERABLES F inal Result [facility] ([place]) 1 [facility] Department [place] [address] * Basic metabolic panel (12/12/2016 9:23 AM CDT) Sodium 142 135 - 145 mmol/L [facility] ([place]) Potassium 3.7 3.5 - 5.1 mmol/L [facility] ([place]) Chloride 105 97 - 110 mmol/L [facility] ([place]) CO2 27 22 - 32 mmol/L [facility] ([place]) Anion gap 10 8 - 16 mmol/L [facility] ([place]) Glucose 116 70 - 199 mg/dL [facility] ([place]) Comment: Interpretive Data Note:The glucose [...] 2014. BUN 21.2 8.0 - 25.0 mg/dL [facility] ([place]) Creatinine 1.10 0.70 - 1.30 mg/dL [facility] ([place]) Calcium 8.7 8.6 - 10.2 mg/dL [facility] ([place]) BUN/creat ratio 19 10 - 20 [facility] ([place]) Blood specimen (specimen) 12/12/2016 9:23 AM CDT 12/12/2016 9:39 AM CDT Sanchez Butterfield MD LAB BLOOD ORDERABLES F inal Result [facility] ([place]) 1 [facility] Department [place] [address] * DISCHARGE LABORATORY CUMULATIVE REPORT (12/12/2016) us Provider Scanning LAB BLOOD ORDERABLES Final Res ult * SCAN - RADIOLOGY/IMAGING (12/12/2016) Anatomical Region Laterality Modality Other us Provider Scanning Final Result documented in this encounter Visit Diagnoses Not on filedocumented in this encounter Care Teams Serger Relationship Specialty Start Date End Date Wesley Em MD PCP - General 09/30/16 12/01/21 documented as of this encounter
--- OUTSIDE RECORDS SUMMARY | 2024-06-18 19:19 | XMS_ITS | Encounter Summary ---
Author Organization [facility] Healthcare Address [address] [place] [address] Care Team Providers Care Window Glass Installer Name Role Phone Wesley Em MD Primary Care Provider [phone] Encounter Details Date Type Department Care Team (Late st Contact Info) Description 10/23/2016 Orders Only [facility] [phone] Albert Craft MD [address] [place], [place] [id number] Social History Tobacco Use Types Packs/Day Years Used Date Smoking Tobacco: Former Alcohol Use Standard Drinks/Week Comments No 0 (1 standard drink = 0.6 oz pur e alcohol) Sex and Gender Information Value Date Recorded Sex Assigned at Not on file 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
--- OUTSIDE RECORDS SUMMARY | 2024-06-18 19:19 | XMS_ITS | Encounter Summary ---
Author Organization [facility] Healthcare Address [address] [place] [address] Care Team Providers Care Instructional Paraprofessional Name Role Phone Wesley Em MD Primary Care Provider [phone] Encounter Details Date Type Department Care Team (Latest Contact Info) Description 01/25/2017 5:57 AM CDT - 01/25/2017 11:40 AM CDT Hospital Encounter [facility] Operating Room [address] [place] [address] Simon Bucio MD [address] [place] [address] Discharge Disposition: Discharge to home or self care Social History Tobacco Use Types Packs/Day Years Used Date Smoking Tobacco: Former Alcohol Use Standard Drinks/Week Comments No 0 (1 standard drink = 0.6 oz pur e alcohol) Sex and Gender Information Value Date Recorded Sex Assigned at Not on file 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 Admit Date: 01/25/2017 Surg.: Simon [...] AM CDT Narrative 01/26/2017 1:38 PM CDT [facility] Department of Pathology [address] [place] [address] Final Report with Addendum ?Patient Name: VILLA ALSTON SR Address: [address] Service: Surgery ??[employer], [place] [address] Location: [facility] Taken: 01/25/2017 Gender: M Received 01/25/2017 : 1945 (Age: 71) Hospital #: [id number] Accessioned: 01/25/2017 ?? Patient Type: [facility] SDS Reported 01/26/2017 Physician(s): Dr. Simon Bucio ?? Diagnosis: Bladder, cystolithopexy: ? - Calculi (gross examination only) ? - Chemical analysis pending ?? Brooklyn Ortiz M.D. ??Report Electronically Reviewed and Signed Out By ??Brooklyn Ortiz M.D. ??01/26/2017 13:38:23 Procedure/Addenda: Scanned Report Interpretation Stone analysis has been completed at [facility] [employer]. See scanned image of results ([id number]) below or review results in the Pathology section in Clinical Desktop. If access to Clinical Desktop is not available, please call pathology for a hard copy of the analysis ([phone]). ? Report Electronically Reviewed and Signed Out [...] determined by the Surgical Pathology Department at [facility] as part of an ongoing manufacturing quality manager program and in compliance with federally [...] characteristics [facility] ??It has not been cleared or approved [...] BLOOD ORDERABLES F inal Result [facility] ([place]) 1 [facility] Department [place] [address] * DISCHARGE LABORATORY CUMULATIVE REPORT (01/25/2017 12:00 [...] on filedocumented in this encounter Care Teams Instructional Paraprofessional Relationship Specialty Start Date End Date Wesley Em MD PCP - General 09/30/16 12/01/21 documented as of this encounter
--- OUTSIDE RECORDS SUMMARY | 2024-06-18 19:19 | XMS_ITS | Encounter Summary ---
Author Organization [facility] Medical Group Address [address] [facility] [address] [place] [address] Care Team Providers Care External Relations Director Name Role Phone Wesley Em MD Primary Care Provider [phone] Encounter Details Date Type Department Care Team (Late st Contact Info) Description 11/04/2016 Orders Only [facility] 2 [facility] [address] [place] [phone] Wesley Em MD [address] [place] [address] [address] [place], [place] [id number] Social History Tobacco Use Types Packs/Day Years Used Date Smoking Tobacco: Former Alcohol Use Standard Drinks/Week Comments No 0 (1 standard drink = 0.6 oz pur e alcohol) Sex and Gender Information Value Date Recorded Sex Assigned at Not on file 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
--- OUTSIDE RECORDS SUMMARY | 2024-06-18 19:19 | XMS_ITS | Encounter Summary ---
Author Organization [facility] Healthcare Address [address] [place] [address] Care Team Providers Care Black Top Spreader Machine Operator Name Role Phone Wesley Em MD Primary Care Provider [phone] Encounter Details Date Type Department Care Team (Late st Contact Info) Description 01/05/2017 10:47 AM CDT - 01/05/2017 11:59 PM CDT Hospital Encounter [facility] oRger Hoskins MD [address] [place] [address] Discharge Disposition: Discharge to home or self care Social History Tobacco Use Types Packs/Day Years Used Date Smoking Tobacco: Former Alcohol Use Standard Drinks/Week Comments No 0 (1 standard drink = 0.6 oz pur e alcohol) Sex and Gender Information Value Date Recorded Sex Assigned at Not on file Legal 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 [facility] TD: 01/05/2017 14:29 CC: Wesley Em M.D. [...] KATHLEEN Final Result [facility] ([place]) 1 [facility] Department [place] [address] documented in this encounter Visit Diagnoses Not on filedocumented in this encounter Care Teams Black Top Spreader Machine Operator Relationship Specialty Start Date End Date Wesley Em MD PCP - General 09/30/16 12/01/21 documented as of this encounter
--- OUTSIDE RECORDS SUMMARY | 2024-06-18 19:19 | XMS_ITS | Encounter Summary ---
Author Organization [facility] Healthcare Address [address] [place] [address] Care Team Providers Care It Sales Representative Name Role Phone Wesley Em MD Primary Care Provider [phone] Encounter Details Date Type Department Care Team (Late st Contact Info) Description 11/04/2016 8:53 AM CDT - 11/04/2016 11:59 PM CDT Hospital Encounter [facility] OP INTERIM Wesley Em MD [address] [place] [address] Discharge Disposition: Discharge to home or self care Social History Tobacco Use Types Packs/Day Years Used Date Smoking Tobacco: Former Alcohol Use Standard Drinks/Week Comments No 0 (1 standard drink = 0.6 oz pur e alcohol) Sex and Gender Information Value Date Recorded Sex Assigned at Not on file 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
--- OUTSIDE RECORDS SUMMARY | 2024-06-18 19:19 | XMS_ITS | Encounter Summary ---
Author Organization [facility] Address [address] [facility] [address] [place] [address] Care Team Providers Care Shipyard Supervisor Name Role Phone Wesley Em MD Primary Care Provider [phone] Encounter Details Date Type Department Care Team (Latest Contact Info) Description 12/27/2016 3:12 PM CDT - 12/27/2016 11:59 PM CDT Hospital Encounter [facility] Orthopedics and Sports Medicine [address] [place] [address] [address], [place] [address] Discharge Disposition: Discharge to home or self care Social History Tobacco Use Types Packs/Day Years Used Date Smoking Tobacco: Former Alcohol Use Standard Drinks/Week Comments No 0 (1 standard drink = 0.6 oz pur e alcohol) Sex and Gender Information Value Date Recorded Sex Assigned at Not on file 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
--- OUTSIDE RECORDS SUMMARY | 2024-06-18 19:19 | XMS_ITS | Encounter Summary ---
Author Organization [facility] Medical Group Address [address] [place] [address] Care Team Providers Care Recreation Clerk Name Role Phone Wesley Em MD Primary Care Provider [phone] Encounter Details Date Type Department Care Team (Late st Contact Info) Description 12/13/2016 Telephone [facility] 2 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
--- OUTSIDE RECORDS SUMMARY | 2024-06-18 19:19 | XMS_ITS | Encounter Summary ---
Author Organization [facility] Medical [facility] Address [address] [place] [address] Care Team Providers Care Alcohol And Drug Counselor Name Role Phone Wesley Em MD Primary Care Provider [phone] Encounter Details Date Type Department Care Team (Late st Contact Info) Description 10/23/2016 Orders Only [facility] 1 [place] [id number] Kathleen Lundberg MD [address] [address] Social History Tobacco Use Types Packs/Day Years Used Date Smoking Tobacco: Former Alcohol Use Standard Drinks/Week Comments No 0 (1 standard drink = 0.6 oz pur e alcohol) Sex and Gender Information Value Date Recorded Sex Assigned at Not on file 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
--- OUTSIDE RECORDS SUMMARY | 2024-06-18 19:19 | XMS_ITS | Encounter Summary ---
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
--- OUTSIDE RECORDS SUMMARY | 2024-06-18 19:19 | XMS_ITS | Encounter Summary ---
Author Organization [facility] Healthcare Address [address] [place] [address] Care Team Providers Care General Dentist/Owner Name Role Phone Wesley Em MD Primary Care Provider [phone] Encounter Details Date Type Department Care Team (Late st Contact Info) Description 04/26/2017 2:30 PM CDT - 04/26/2017 11:59 PM CDT Hospital Encounter [facility] Jerod Espinoza, DO [address] [place] [address] Discharge Disposition: Discharge to home or self care Social History Tobacco Use Types Packs/Day Years Used Date Smoking Tobacco: Former Smokeless Tobacco: Never Alcohol Use Standard Drinks/Week Comments No 0 (1 standard drink = 0.6 oz pur e alcohol) Sex and Gender Information Value Date Recorded Sex Assigned at Not on file 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 Patient Type: CH Ref [...] determined by the Surgical Pathology Department at [facility] as part of an ongoing vice president quality program and in compliance with federally mandated [...] characteristics determined by the Surgical Pathology Department [facility]. ??It has not been cleared or approved by the U. S. Food and Drug Administration. Jerod Espinoza DO LAB CYTOLOGY ORDERABLES Iwona l Result documented in this encounter Visit Diagnoses Not on filedocumented in this encounter Care Teams General Dentist/Owner Relationship Specialty Start Date End Date Wesley Em MD PCP - General 09/30/16 12/01/21 documented as of this encounter
--- OUTSIDE RECORDS SUMMARY | 2024-06-18 19:19 | XMS_ITS | Encounter Summary ---
Author Organization [facility] Medical Group Address [address] [place] [address] Care Team Providers Care Dough Mixer Helper Name Role Phone Wesley Em MD Primary Care Provider [phone] Reason for Visit * Reason Comments Follow-up DM Encounter Details Date Type Department Care Team (Late st Contact Info) Description 01/23/2017 11:00 AM CDT Office Visit [facility] [address] [address] Wesley Em MD [address] [place] [address] [address] [place] [address] Essential hypertension (Primary Dx); Polycythemia vera, acquired Social History Tobacco Use Types Packs/Day Years Used Date Smoking Tobacco: Former Alcohol Use Standard Drinks/Week Comments No 0 (1 standard drink = 0.6 oz pur e alcohol) Sex and Gender Information Value Date Recorded Sex Assigned at Not on file 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
--- OUTSIDE RECORDS SUMMARY | 2024-06-18 19:19 | XMS_ITS | Encounter Summary ---
Author Organization [facility] Medical Group Address [address] [place] [address] Care Team Providers Care Butcher Chicken And Fish Name Role Phone Wesley Em MD Primary Care Provider [phone] Encounter Details Date Type Department Care Team (Late st Contact Info) Description 07/07/2017 3:45 PM PERMIT COORDINATOR Lab [facility] [address] [place] [address] [address] [place] [address] Polycythemia Social History Tobacco Use Types Packs/Day Years Used Date Smoking Tobacco: Former Smokeless Tobacco: Never Alcohol Use Standard Drinks/Week Comments No 0 (1 standard drink = 0.6 oz pur e alcohol) Sex and Gender Information Value Date Recorded Sex Assigned at Not on file Legal Sex Male 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
--- OUTSIDE RECORDS SUMMARY | 2024-06-18 19:19 | XMS_ITS | Encounter Summary ---
Author Organization [facility] Medical Group Address [address] [place] [address] Care Team Providers Care Willow Machine Operator Name Role Phone Wesley Em MD Primary Care Provider [phone] Encounter Details Date Type Department Care Team (Late st Contact Info) Description 10/23/2016 Orders Only [facility] 1 [place] [address] Kathleen Lundberg MD [address] [id number] Social History Tobacco Use Types Packs/Day Years Used Date Smoking Tobacco: Former Alcohol Use Standard Drinks/Week Comments No 0 (1 standard drink = 0.6 oz pur e alcohol) Sex and Gender Information Value Date Recorded Sex Assigned at Not on file 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
--- OUTSIDE RECORDS SUMMARY | 2024-06-18 19:19 | XMS_ITS | Encounter Summary ---
Author Organization [facility] Medical Group Address [address] [facility] [address] [facility] [address] [place] [address] Care Team Providers Care Personal Care Service Provider Name Role Phone Wesley Em MD Primary Care Provider [phone] Encounter Details Date Type Department Care Team (Late st Contact Info) Description 04/04/2017 8:45 AM CDT [facility] [address] [place] [address] [address] [place] [address] Essential hypertension Social History Tobacco Use Types Packs/Day Years Used Date Smoking Tobacco: Former Smokeless Tobacco: Never Alcohol Use Standard Drinks/Week Comments No 0 (1 standard drink = 0.6 oz pur e alcohol) Sex and Gender Information Value Date Recorded Sex Assigned at Not on file 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
--- OUTSIDE RECORDS SUMMARY | 2024-06-18 19:19 | XMS_ITS | Encounter Summary ---
Author Organization [facility] Medical Group Address [address] [facility] [place] [address] Care Team Providers Care Residential Installer Name Role Phone Wesley Em MD Primary Care Provider [phone] Encounter Details Date Type Department Care Team (Late st Contact Info) Description 10/23/2016 [facility] Only [facility] 1 [place] [address] Kathleen Lundberg MD [address] [id number] Social History Tobacco Use Types Packs/Day Years Used Date Smoking Tobacco: Former Alcohol Use Standard Drinks/Week Comments No 0 (1 standard drink = 0.6 oz pur e alcohol) Sex and Gender Information Value Date Recorded Sex Assigned at Not on file 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
--- OUTSIDE RECORDS SUMMARY | 2024-06-18 19:19 | XMS_ITS | Encounter Summary ---
Author Organization [facility] Medical [facility] Address [address] [place] [address] Care Team Providers Care Bucket Pusher Name Role Phone Wesley Em MD Primary Care Provider [phone] Reason for Visit * Reason Comments Pain * Surgical (Routine) - Closed Specialty Diagnoses / Procedures Referred By Jomar villela Referred To Contact Orthopedic Surgery Diagnoses Biceps tendon rupture, left, initial encounter Wesley Em MD Phone: tel: fax: Yo Schaefer MD Phone: tel: fax: Referral ID Status Reason Start Date Expiration Date V isits Requested Visits Authorized [id number] Closed Specialty Services Required 12/26/2016 06/24/2017 1 1 Encounter Details Date Type Department Care Team (Late st Contact Info) Description 12/27/2016 3:00 PM CDT Office Visit [facility] [address] [place] [address] Yo Schaefer MD [address] [place] [address] [address] [place] [address] Rupture of distal biceps tendon, left, initial encounter (Primary Dx); Traumatic hematoma of elbow, left, initial encounter Social History Tobacco Use Types Packs/Day Years Used Date Smoking Tobacco: Former Alcohol Use Standard Drinks/Week Comments No 0 (1 standard drink = 0.6 oz pur e alcohol) Sex and Gender Information Value Date Recorded Sex Assigned at Not on file 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 He was told to d/c [...] encounter documented in this encounter Care Teams Bucket Pusher Relationship Specialty Start Date End Date Wesley Em MD PCP - General 09/30/16 12/01/21 documented as of this encounter
--- OUTSIDE RECORDS SUMMARY | 2024-06-18 19:19 | XMS_ITS | Encounter Summary ---
Author Organization [facility] Medical Group Address [address] [place] [address] Care Team Providers Care Theatre Instructor Name Role Phone Wesley Em MD Primary Care Provider Encounter Details Date Type Department Care Team (Late st Contact Info) Description 10/23/2016 Orders Only [facility] 1 [place] [address] Kathleen Lundberg MD [address] [address] Social History Tobacco Use Types Packs/Day Years Used Date Smoking Tobacco: Former Alcohol Use Standard Drinks/Week Comments No 0 (1 standard drink = 0.6 oz pur e alcohol) Sex and Gender Information Value Date Recorded Sex Assigned at Not on file 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
--- OUTSIDE RECORDS SUMMARY | 2024-06-18 19:20 | XMS_ITS | Encounter Summary ---
Author Organization [facility] Medical [facility] Address [address] [place] [address] Care Team Providers Care Client Service Administrator Name Role Phone Wesley Em MD Primary Care Provider [phone] Encounter Details Date Type Department Care Team (Late st Contact Info) Description 10/22/2016 Orders Only [facility] Hospital[facility] 1 [place] [phone] Kathleen Lundberg MD [address] [place] [id number] Social History Tobacco Use Types Packs/Day Years Used Date Smoking Tobacco: Former Alcohol Use Standard Drinks/Week Comments No 0 (1 standard drink = 0.6 oz pur e alcohol) Sex and Gender Information Value Date Recorded Sex Assigned at Not on file 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 Gender Identity Not on file Sexual Orientation [...] A1C 6.1(H) 4.0 - 6.0 % [facility] ([place]) Estimated Average Glucose 128 [facility] ([place]) Blood specimen (specimen) 10/22/2016 5:49 PM CDT 10/22/2016 5:50 PM CDT us Kathleen Lundberg MD LAB BLOOD ORDERABLES Final Resul t [facility] ([place]) 1 [facility] Department [place] [address] documented in this encounter Visit Diagnoses Not on filedocumented in this encounter Care Teams Client Service Administrator Relationship Specialty Start Date End Date Wesley Em MD PCP - General 09/30/16 12/01/21 documented as of this encounter
--- OUTSIDE RECORDS SUMMARY | 2024-06-18 19:20 | XMS_ITS | Encounter Summary ---
Author Organization [facility] Healthcare Address [address] [place] [address] Care Team Providers Care Harness Brusher Name Role Phone Wesley Em MD Primary Care Provider [phone] Encounter Details Date Type Department Care Team (Late st Contact Info) Description 10/22/2016 Orders Only [facility] [phone] Milagro Fletcher MD [address] [place] [address] [address] Social History Tobacco Use Types Packs/Day Years Used Date Smoking Tobacco: Former Alcohol Use Standard Drinks/Week Comments No 0 (1 standard drink = 0.6 oz pur e alcohol) Sex and Gender Information Value Date Recorded Sex Assigned at Not on file 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
--- OUTSIDE RECORDS SUMMARY | 2024-06-18 19:20 | XMS_ITS | Encounter Summary ---
Author Organization [facility] Healthcare Address [address] [place] [address] Care Team Providers Care Manufacturing Advisor Name Role Phone Gene Em MD Primary Care Provider [phone] Encounter Details Date Type Department Care Team (Late st Contact Info) Description 10/10/2016 8:45 AM CDT - 10/10/2016 11:59 PM CDT Hospital Encounter [facility] Sanchez Butterfield MD [address] [facility] [address] [address] Discharge Disposition: Discharge to home or self care Social History Tobacco Use Types Packs/Day Years Used Date Smoking Tobacco: Former Alcohol Use Standard Drinks/Week Comments No 0 (1 standard drink = 0.6 oz pur e alcohol) Sex and Gender Information Value Date Recorded Sex Assigned at Not on file 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 GENE EM XR KUB ?[id number] ??Acc#: ??[id number] DATE OF EXAM: ??Oct 10 2016 CLINICAL [...] BUTTERFIELD Requesting: ??DR SANCHEZ BUTTERFIELD Requesting Fax: ??[phone] Attending Fax: ??-- Attending ID: ??[id number] Requesting ID: ??[id number] Report To 1 ID: ??[id number] Report To 1 Name: ??SANCHEZ BUTTERFIELD Report To 1 FAX: ??-- NextGen Order #: ?? Procedure Note Miscellaneous, Notinfile / Provider, MD Wilian - 11/24/2016 CC: DR. GENE EM XR KUB [id number] Acc#: [id number] DATE OF EXAM: Oct 10 2016 CLINICAL [...] Read on: Oct 10 20169:[id number] Transcribed by: [facility] On: Oct 10 2016 3:12P Approved Electronically by: RAFA Mcginnis, DR HERNANDEZ on: Oct 10 201611:47P Attending: SANCHEZ BUTTERFIELD Requesting: DR SANCHEZ BUTTERFIELD Requesting Attending Fax: -- Attending ID: [id number] Requesting ID: [id number] Report To 1 ID: [id number] Report To 1 Name: SANCHEZ BUTTERFIELD Report To 1 FAX: -- NextGen Order #: us Not In File Miscellaneous IMG XR PROCEDURES Iwona l Result documented in this encounter Visit Diagnoses Not on filedocumented in this encounter Care Teams Manufacturing Advisor Relationship Specialty Start Date End Date Gene Em MD PCP - General 09/30/16 12/01/21 documented as of this encounter
--- OUTSIDE RECORDS SUMMARY | 2024-06-18 19:20 | XMS_ITS | Encounter Summary ---
Author Organization [facility] Healthcare Address [address] [place] [address] Care Team Providers Care Colorectal Surgeon Name Role Phone Wesley Em MD Primary Care Provider Encounter Details Date Type Department Care Team (Late st Contact Info) Description 10/21/2016 Orders Only [facility] [phone] Jose De Jesus Rushing Jr., MD [facility] [place] [address] Social History Tobacco Use Types Packs/Day Years Used Date Smoking Tobacco: Former Alcohol Use Standard Drinks/Week Comments No 0 (1 standard drink = 0.6 oz pur e alcohol) Sex and Gender Information Value Date Recorded Sex Assigned at Not on file 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
--- OUTSIDE RECORDS SUMMARY | 2024-06-18 19:20 | XMS_ITS | Encounter Summary ---
Author Organization [facility] Medical Group Address [address] [place] [address] Care Team Providers Care Rigging Foreman Name Role Phone Wesley Em MD Primary Care Provider [phone] Encounter Details Date Type Department Care Team (Late st Contact Info) Description 10/22/2016 Orders Only [facility] 1 [place] [phone] Kathleen Lundberg MD [address] [address] Social History Tobacco Use Types Packs/Day Years Used Date Smoking Tobacco: Former Alcohol Use Standard Drinks/Week Comments No 0 (1 standard drink = 0.6 oz pur e alcohol) Sex and Gender Information Value Date Recorded Sex Assigned at Not on file 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
--- OUTSIDE RECORDS SUMMARY | 2024-06-18 19:20 | XMS_ITS | Encounter Summary ---
Author Organization 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 Procedure Note Miscellaneous, Notinfile / ProviderWilian MD - 11/23/2016 vm XR KUB [id number] Acc#: [id number] DATE OF EXAM: Sep 26 2016 CLINICAL [...] BUTTERFIELD Requesting Attending Fax: -- Attending ID: [id number] Requesting ID: [id number] Report To 1 ID: [id number] Report To 1 Name: SANCHEZ BUTTERFIELD Report To 1 FAX: -- NextGen Order #: us Not In File Miscellaneous IMG XR PROCEDURES Iwona l Result documented in this encounter Visit Diagnoses Not on filedocumented in this encounter Care Teams Road Worker Relationship Specialty Start Date End Date Wesley Em MD PCP - General 09/01/16 09/29/16 documented as of this encounter
--- OUTSIDE RECORDS SUMMARY | 2024-06-18 19:20 | XMS_ITS | Encounter Summary ---
Author Organization [facility] Healthcare Address [address] [place] [address] Care Team Providers Care Wood Grinder Name Role Phone Wesley Em MD Primary Care Provider [phone] Encounter Details Date Type Department Care Team (Late st Contact Info) Description 09/09/2016 10:26 AM ENGLISH TEACHER - 09/09/2016 11:59 PM ENGLISH TEACHER Hospital Encounter [facility] OP INTERIM Wesley Em MD [address] [place] [address] Discharge Disposition: Discharge to home or self care Social History Tobacco Use Types Packs/Day Years Used Date Smoking Tobacco: Former Alcohol Use Standard Drinks/Week Comments No 0 (1 standard drink = 0.6 oz pur e alcohol) Sex and Gender Information Value Date Recorded Sex Assigned at Not on file Legal Sex Male 6:00 PM 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
--- OUTSIDE RECORDS SUMMARY | 2024-06-18 19:20 | XMS_ITS | Encounter Summary ---
Author Organization [facility] Address [address] [place] [address] Care Team Providers Care Service Center Coordinator Name Role Phone Wesley Em MD Primary Care Provider [phone] Wesley Em MD Primary Care Provider [phone] Encounter Details Date Type Department Care Team (Late st Contact Info) Description 09/28/2016 Orders Only [facility] Interim [phone] Simon Bucio MD 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
--- OUTSIDE RECORDS SUMMARY | 2024-06-18 19:20 | XMS_ITS | Encounter Summary ---
Author Organization [facility] Healthcare Address [address] [place] [address] Care Team Providers Care Side Trimmer Name Role Phone Wesley Em MD Primary Care Provider Encounter Details Date Type Department Care Team (Late st Contact Info) Description 10/15/2016 2:48 PM CDT - 10/15/2016 4:17 PM CDT Emergency 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 Procedure Note Miscellaneous, Notinfile / Provider, MD Wilian - 11/25/[place] [id number] Acc#: [id number] DATE OF EXAM: Oct 15 2016 CLINICAL [...] ESCOBAR Requesting Fax: -- Attending Attending ID: [id number] Requesting ID: [id number] Report To 1 ID: [id number] Report To 1 Name: MORAIMA MARCUM Report To 1 FAX: [phone] NextGen Order #: us Not In File Miscellaneous IMG CT PROCEDURES Iwona l Result * Xr Pelvis 1 or 2 Views (10/15/2016 8:37 PM CDT) Anatomical Region Laterality Modality Body, Pelvis N/A Radiographic Jennifer ging 10/15/2016 8:37 PM CDT Narrative 10/15/2016 8:37 PM CDT XR Pelvis 1-2 Views ?? [id number] ??Acc#: ??[id number] DATE OF EXAM: ??Oct 15 2016 CLINICAL [...] ??MISHEL ESCOBAR Requesting Fax: ??-- Attending Fax: ??[phone] Attending ID: ??[id number] Requesting ID: ??[id number] Report To 1 ID: ??[id number] Report To 1 Name: ??MORAIMA MARCUM Report To 1 FAX: ??[phone] NextGen Order #: ?? Procedure Note Miscellaneous, Notinfile - 11/25/2016 XR Pelvis 1-2 Views [id number] Acc#: [id number] DATE OF EXAM: Oct 15 2016 CLINICAL [...] ESCOBAR Requesting Fax: -- Attending Attending ID: [id number] Requesting ID: [id number] Report To 1 ID: [id number] Report To 1 Name: MORAIMA MARCUM Report To 1 FAX: [phone] NextGen Order #: us Not In File Miscellaneous IMG XR PROCEDURES Iwona l Result * XR Hand 2 VW (10/15/2016 8:37 PM CDT) Anatomical Region Laterality Modality N/A Radiographic Jennifer ging 10/15/2016 8:37 PM CDT Narrative 10/15/2016 8:37 PM CDT XR Hand R ?[id number] ??Acc#: ??[id number] DATE OF EXAM: ??Oct 15 2016 CLINICAL [...] ??MISHEL ESCOBAR Requesting Fax: ??-- Attending Fax: ??[phone] Attending ID: ??[id number] Requesting ID: ??[id number] Report To 1 ID: ??[id number] Report To 1 Name: ??MORAIMA MARCUM Report To 1 FAX: ??[phone] NextGen Order #: ?? Procedure Note Miscellaneous, Notinfile / Provider, MD Wilian - 11/25/2016 [place] Hand R [id number] Acc#: [id number] DATE OF EXAM: Oct 15 2016 CLINICAL [...] ESCOBAR Requesting Fax: -- Attending Attending ID: [id number] Requesting ID: [id number] Report To 1 ID: [id number] Report To 1 Name: MORAIMA MARCUM Report To 1 FAX: [phone] NextGen Order #: us Not In File Miscellaneous IMG XR PROCEDURES Iwona l Result * XR Ribs And Pa Chest 3V (10/15/2016 8:37 PM CDT) Anatomical Region Laterality Modality Chest, Rib N/A Radiographic Jennifer ging 10/15/2016 8:37 PM CDT Narrative 10/15/2016 8:37 PM CDT XR Ribs UNI W PA Chest R ??[id number] ??Acc#: ??[id number] DATE OF EXAM: ??Oct 15 2016 CLINICAL [...] ??MISHEL ESCOBAR Requesting Fax: ??-- Attending Fax: ??[phone] Attending ID: ??[id number] Requesting ID: ??[id number] Report To 1 ID: ??[id number] Report To 1 Name: ??MORAIMA MARCUM Report To 1 FAX: ??[phone] NextGen Order #: ?? Procedure Note Miscellaneous, Notinfile / Provider, MD Wilian - 11/25/2016 XR Ribs UNI W [place] Chest R [id number] Acc#: [id number] DATE OF EXAM: Oct 15 2016 CLINICAL [...] ESCOBAR Requesting Fax: -- Attending Attending ID: [id number] Requesting ID: [id number] Report To 1 ID: [id number] Report To 1 Name: MORAIMA MARCUM Report To 1 FAX: [phone] NextGen Order #: us Not In File Miscellaneous IMG XR PROCEDURES Iwona l Result * XR Hip 2+ VW (10/15/2016 8:37 PM CDT) Anatomical Region Laterality Modality N/A Radiographic Jennifer ging 10/15/2016 8:37 PM CDT Narrative 10/15/2016 8:37 PM CDT XR Hip Min 2 TO 3 VIEWS R ??Acc#: ??[id number] DATE OF EXAM: ??Oct 15 2016 CLINICAL [...] 16 2016 12:31P Approved Electronically by: ??XAVIER TORRES M.D. ??on: ??Oct 16 2016 ??8:14P Attending: ??MORAIMA MARCUM Requesting: ??MISHEL ESCOBAR Requesting Fax: ??-- Attending Fax: ??[phone] Attending ID: ??[id number] Requesting ID: ??[id number] Report To 1 ID: ??[id number] Report To 1 Name: ??MORAIMA MARCUM Report To 1 FAX: ??[phone] NextGen Order #: ?? Procedure Note Miscellaneous, Notinfile / Provider, MD Wilian - 11/25/2016 XR Hip Min 2 TO 3 VIEWS R Acc#: [id number] DATE OF EXAM: Oct 15 2016 CLINICAL [...] ESCOBAR Requesting Fax: -- Attending Attending ID: [id number] Requesting ID: [id number] Report To 1 ID: [id number] Report To 1 Name: MORAIMA MARCUM Report To 1 FAX: [phone] NextGen Order #: us Not In File Miscellaneous IMG XR PROCEDURES Iwona l Result documented in this encounter Visit Diagnoses Not on filedocumented in this encounter Care Teams Side Trimmer Relationship Specialty Start Date End Date Wesley Em MD PCP - General 09/30/16 12/01/21 documented as of this encounter
--- OUTSIDE RECORDS SUMMARY | 2024-06-18 19:20 | XMS_ITS | Encounter Summary ---
Author Organization [facility] Healthcare Address [address] [place] [address] Care Team Providers Care Sfdc Consultant Name Role Phone Wesley Em MD Primary Care Provider [phone] Encounter Details Date Type Department Care Team (Late st Contact Info) Description 10/21/2016 Orders Only [facility] Interim [phone] Jose De Jesus Rushing Jr., MD [facility] [place] [address] Social History Tobacco Use Types Packs/Day Years Used Date Smoking Tobacco: Former Alcohol Use Standard Drinks/Week Comments No 0 (1 standard drink = 0.6 oz pur e alcohol) Sex and Gender Information Value Date Recorded Sex Assigned at Not on file 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
--- OUTSIDE RECORDS SUMMARY | 2024-06-18 19:20 | XMS_ITS | Encounter Summary ---
Author Organization [facility] Healthcare Address [address] [place] [address] Care Team Providers Care Electric Mule Driver Name Role Phone Wesley Em MD Primary Care Provider [phone] Encounter Details Date Type Department Care Team (Latest Contact Info) Description 09/28/2016 7:15 AM CDT - 09/28/2016 12:58 PM CDT Hospital Encounter [facility] Operating Room [address] [place] [address] Discharge Disposition: Discharge to home or self care Social History Tobacco Use Types Packs/Day Years Used Date Smoking Tobacco: Former Alcohol Use Standard Drinks/Week Comments No 0 (1 standard drink = 0.6 oz pur e alcohol) Sex and Gender Information Value Date Recorded Sex Assigned at Not on file 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 Admit Date: 09/28/2016 [...] condition. Electronically Authenticated and Edited by: Sanchez Butterfield MD On 10/03/2016 05:06 PM CDT Sanchez [...] 09/28/2016 4:19 PM CDT XR Retrograde Pyelogram [id number] ??Acc#: ??[id number] DATE OF EXAM: ??Sep 28 2016 CLINICAL [...] on: ??Sep 28 2016 12:08P Transcribed by: [facility] ??On: Sep 28 2016 ??2:40P Approved Electronically by: ??RAFA Mcginnis, DR HERNANDEZ ??on: ??Sep 28 2016 7:49P Attending: ??SANCHEZ BUTTERFIELD Requesting: ??DR SANCHEZ BUTTERFIELD Requesting Fax: ??[phone] Attending Fax: ??-- Attending ID: ??[id number] Requesting ID: ??[id number] Report To 1 ID: ??[id number] Report To 1 Name: ??SANCHEZ BUTTERFIELD Report To 1 FAX: ??-- NextGen Order #: ?? Procedure Note Miscellaneous, Notinfile / Provider, MD Wilian - 11/23/2016 XR Retrograde Pyelogram [id number] Acc#: [id number] DATE OF EXAM: Sep 28 2016 CLINICAL [...] Read on: Sep 28 201612:08P Transcribed by: [facility] On: Sep 28 2016 2:40P Approved Electronically by: RAFA Mcginnis, DR HERNANDEZ on: Sep 28 20167:49P Attending: SANCHEZ BUTTERFIELD Requesting: DR SANCHEZ BUTTERFIELD Requesting Attending Fax: -- Attending ID: [id number] Requesting ID: [id number] Report To 1 ID: [id number] Report To 1 Name: SANCHEZ BUTTERFIELD Report To 1 FAX: -- NextGen Order #: us Not In File Miscellaneous IMG FLUOROSCOPY PROCED URES Final Result documented in this encounter Visit Diagnoses Not on filedocumented in this encounter Care Teams Electric Mule Driver Relationship Specialty Start Date End Date Wesley Em MD PCP - General 09/01/16 09/29/16 documented as of this encounter
--- OUTSIDE RECORDS SUMMARY | 2024-06-18 19:20 | XMS_ITS | Encounter Summary ---
Author Organization [facility] Address [address] [place] [address] Care Team Providers Care Pad Tufter Name Role Phone Wesley Em MD Primary Care Provider Encounter Details Date Type Department Care Team (Late st Contact Info) Description 10/22/2016 Orders Only [facility] 1 [place] [id number] Kathleen Lundberg MD [address] [id number] Social History Tobacco Use Types Packs/Day Years Used Date Smoking Tobacco: Former Alcohol Use Standard Drinks/Week Comments No 0 (1 standard drink = 0.6 oz pur e alcohol) Sex and Gender Information Value Date Recorded Sex Assigned at Not on file 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
--- OUTSIDE RECORDS SUMMARY | 2024-06-18 19:20 | XMS_ITS | Encounter Summary ---
Author Organization [facility] Healthcare Address [address] [place] [address] Care Team Providers Care Corporate Recruiter Name Role Phone Wesley Em MD Primary Care Provider [phone] Encounter Details Date Type Department Care Team (Late st Contact Info) Description 10/21/2016 Orders Only [facility] Interim [phone] Jose Bucio MD [address] [place] [address] [address] [place] [address] Social History Tobacco Use Types Packs/Day Years Used Date Smoking Tobacco: Former Alcohol Use Standard Drinks/Week Comments No 0 (1 standard drink = 0.6 oz pur e alcohol) Sex and Gender Information Value Date Recorded Sex Assigned at Not on file 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
--- OUTSIDE RECORDS SUMMARY | 2024-06-18 19:20 | XMS_ITS | Encounter Summary ---
Author Organization [facility] Healthcare Address [address] [place] [address] Care Team Providers Care Instrumentation And Controls Designer Name Role Phone Wesley Em MD Primary Care Provider [phone] Encounter Details Date Type Department Care Team (Late st Contact Info) Description 10/21/2016 Orders Only [facility] Interim [phone] Jose De Jesus Rushing Jr., MD 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
--- OUTSIDE RECORDS SUMMARY | 2024-06-18 19:20 | XMS_ITS | Encounter Summary ---
Author Organization 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; Presence of coronary angioplasty implant and graft; Type 2 diabetes mellitus without complications ([facility]/HCC); Osteoarthritis; Secondary polycythemia; Cigarette nicotine dependence, uncomplicated Social History Tobacco Use Types Packs/Day Years Used Date Smoking Tobacco: Former Alcohol Use Standard Drinks/Week Comments No 0 (1 standard drink = 0.6 oz pur e alcohol) Sex and Gender Information Value Date Recorded Sex Assigned at Not on file Legal Sex Male 6:00 PM VETERINARY SURGERY 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 Gender Identity Not on file Sexual [...] UREASE SCREEN, CDR Routine 07/27/2016 11:15 AM VETERINARY SURGERY 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 BLOOD GLUCOSE, POC Routine 07/27/2016 9: 17 AM VETERINARY SURGERY 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 EGD IMAGES 07/27/2016 DISCHARGE LABORATORY CUMULATIVE REPORT 07/27/2016 SURGICAL PATHOLOGY 07/27/2016 documented in this encounter Results * Helicobacter pylori urease screen (07/27/2016 11:15 AM VETERINARY SURGERY 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) Biopsy (Unknown) 07/27/2016 11:15 AM VETERINARY SURGERY 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 07/27/2016 1:31 PM VETERINARY SURGERY 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 Narrative CDR HISTORICAL RESULTS - 07/28/2016 12:11 PM VETERINARY SURGERY 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 Negative Emeli Test us Historical Provider LAB MICROBIOLOGY - GENERA L ORDERABLES Final Result CDR HISTORICAL RESULTS * (ABNORMAL) Blood glucose, POC (07/27/2016 9:17 AM VETERINARY SURGERY 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) Glucose, POC, bld 101(H) 71 - 98 mg/dl CDR HISTORICAL RESULTS Blood specimen (specimen) 07/27/2016 9:17 AM VETERINARY SURGERY 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 Historical Provider LAB BLOOD ORDERABLES Iwona l Result CDR HISTORICAL RESULTS * Surgical pathology (07/27/2016) Narrative 07/27/2016 Ordered by an unspecified provider. [facility] Provider MD LAB PATHOLOGY ORDERABLES Final Result * DISCHARGE LABORATORY CUMULATIVE REPORT (07/27/2016) Narrative 07/27/2016 Ordered by an unspecified provider. [facility] Provider LAB BLOOD ORDERABLES Iwona l Result * EGD IMAGES (07/27/2016) Anatomical Region Laterality Modality Other Narrative 07/27/2016 Ordered by an unspecified provider. 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
--- OUTSIDE RECORDS SUMMARY | 2024-06-18 19:20 | XMS_ITS | Encounter Summary ---
Author Organization [facility] Healthcare Address [address] [place] [address] Care Team Providers Care Gas Maker Name Role Phone Wesley Em MD Primary Care Provider [phone] Wesley Em MD Primary Care Provider [phone] Encounter Details Date Type Department Care Team (Late st Contact Info) Description 05/05/2016 10:42 AM CDT - 09/08/2016 11:59 PM PARK SERVICES SPECIALIST Hospital Encounter [facility] Hoskins, Roger Steele MD [address] [place] [id number] Polycythemia vera (CMS/HCC); Polycythemia vera(238.4) ([facility]/HCC) Social History Tobacco Use Types Packs/Day Years Used Date Smoking Tobacco: Former Alcohol Use Standard Drinks/Week Comments No 0 (1 standard drink = 0.6 oz pur e alcohol) Sex and Gender Information Value Date Recorded Sex Assigned at Not on file Legal Sex Male 6:00 PM PARK SERVICES SPECIALIST Gender Identity Not on file Sexual [...] CELL COUNT (CBC) Routine 7 4:20 AM PARK SERVICES SPECIALIST DISCHARGE LABORATORY CUMULATIVE REPORT 09/08/2016 SERUM ESTIMATED GLOMERULAR FILTRATION RATE Routine 07/14/2016 10:45 AM PARK SERVICES SPECIALIST BLOOD CELL COUNT (CBC) Routine 7 4:45 AM PARK SERVICES SPECIALIST PLASMA COMPREHENSIVE METABOLIC PANEL Routine 07/14/2016 4:45 AM PARK SERVICES SPECIALIST SERUM ESTIMATED GLOMERULAR FILTRATION RATE Routine 06/16/2016 11:10 AM PARK SERVICES SPECIALIST BLOOD CELL COUNT (CBC) Routine 6 5:10 AM PARK SERVICES SPECIALIST PLASMA BASIC METABOLIC PANEL Routine 06/16/2016 5:10 AM PARK SERVICES SPECIALIST BLOOD CELL COUNT (CBC) Routine 6 5:45 AM PARK SERVICES SPECIALIST BLOOD CELL COUNT (CBC) Routine 6 10:55 AM CDT documented in this encounter Results * (ABNORMAL) Blood cell count (CBC) (09/08/2016 4:20 AM PARK SERVICES SPECIALIST) WBC 5.8 3.8 - 9.8 K/cumm CDR [...] RESULTS Blood specimen (specimen) 09/08/2016 4:20 AM PARK SERVICES SPECIALIST Narrative CDR HISTORICAL RESULTS - 09/08/2016 4:24 AM PARK SERVICES SPECIALIST 2 [place] Roger Hoskins MD LAB BLOOD ORDERABLES Fin al Result CDR HISTORICAL RESULTS * DISCHARGE LABORATORY CUMULATIVE REPORT (09/08/2016) Narrative 09/08/2016 Ordered by an unspecified provider. [facility] Provider LAB BLOOD ORDERABLES Iwona l Result * Serum estimated glomerular filtration rate (07/14/2016 10:45 AM PARK SERVICES SPECIALIST) Pathologist [facility] eGFR >60 ml/min/1.7 3 m2 CDR HISTORICAL RESULTS Comment: Interpretive Data Reference Interval Normal ?>/= 90 mL/min/1.73m2 Mildly decreased* ? 60 - 89 mL/min/1.73m2 Mildly to moderately decreased ?45 - 59 mL/min/1.73m2 Moderately to severely decreased ??30 - 44 mL/min/1.73m2 Severely decreased ?15 - 29 mL/min/1.73m2 Kidney Failure ?< 15 ??mL/min/1.73m2 *Relative to young adult level If -Tanzanian multiply value by 1.16. Estimated glomerular filtration [...] reviewed 2016. Serum 07/14/2016 10:4 5 AM PARK SERVICES SPECIALIST Historical Provider LAB BLOOD ORDERABLES Iwona l Result Performing Organization Address City/[facility] Co de Phone Number CDR HISTORICAL RESULTS * Blood cell count (CBC) (07/14/2016 4:45 AM PARK SERVICES SPECIALIST) WBC 5.6 3.8 - 9.8 K/cumm CDR [...] RESULTS Blood specimen (specimen) 07/14/2016 4:45 AM PARK SERVICES SPECIALIST Narrative CDR HISTORICAL RESULTS - 07/14/2016 4:52 AM PARK SERVICES SPECIALIST 1 [place] PHELOBOTOMY Historical Provider LAB BLOOD ORDERABLES Iwona l Result Performing Organization Address City/[facility] Co de Phone Number CDR HISTORICAL RESULTS * (ABNORMAL) Plasma comprehensive metabolic panel (07/14/2016 4:45 AM PARK SERVICES SPECIALIST) Sodium 138 135 - 145 mmol/L CDR [...] CDR HISTORICAL RESULTS Plasma 07/14/2016 4:45 AM PARK SERVICES SPECIALIST Narrative CDR HISTORICAL RESULTS - 07/14/2016 6:54 AM PARK SERVICES SPECIALIST 1 [place] PHELOBOTOMY us Historical Provider LAB BLOOD ORDERABLES Iwona mackay Result CDR HISTORICAL RESULTS * Serum estimated glomerular filtration rate (06/16/2016 11:10 AM PARK SERVICES SPECIALIST) eGFR >60 ml/min/1.7 3 m2 CDR HISTORICAL RESULTS Comment: Interpretive Data Reference Interval Normal ?>/= 90 mL/min/1.73m2 Mildly decreased* ? 60 - 89 mL/min/1.73m2 Mildly to moderately decreased ?45 - 59 mL/min/1.73m2 Moderately to severely decreased ??30 - 44 mL/min/1.73m2 Severely decreased ?15 - 29 mL/min/1.73m2 Kidney Failure ?< 15 ??mL/min/1.73m2 *Relative to young adult level If -Tanzanian multiply value by 1.16. Estimated glomerular filtration [...] reviewed 2016. Serum 06/16/2016 11:1 0 AM PARK SERVICES SPECIALIST us Historical Provider LAB BLOOD ORDERABLES Iwona mackay Result CDR HISTORICAL RESULTS * (ABNORMAL) Blood cell count (CBC) (06/16/2016 5:10 AM PARK SERVICES SPECIALIST) WBC 6.0 3.8 - 9.8 K/cumm CDR [...] RESULTS Blood specimen (specimen) 06/16/2016 5:10 AM PARK SERVICES SPECIALIST Narrative CDR HISTORICAL RESULTS - 06/16/2016 5:16 AM PARK SERVICES SPECIALIST 4 W[place] Historical Provider LAB BLOOD ORDERABLES Iwona l Result CDR HISTORICAL RESULTS * Plasma basic metabolic panel (06/16/2016 5:10 AM PARK SERVICES SPECIALIST) Sodium 140 135 - 145 mmol/L CDR [...] CDR HISTORICAL RESULTS Plasma 06/16/2016 5:10 AM PARK SERVICES SPECIALIST Narrative CDR HISTORICAL RESULTS - 06/16/2016 5:53 AM PARK SERVICES SPECIALIST 4 WK Historical Provider LAB BLOOD ORDERABLES Iwona l Result CDR HISTORICAL RESULTS * (ABNORMAL) Blood cell count (CBC) (05/19/2016 5:45 AM PARK SERVICES SPECIALIST) WBC 6.5 3.8 - 9.8 K/cumm CDR [...] RESULTS Blood specimen (specimen) 05/19/2016 5:45 AM PARK SERVICES SPECIALIST Narrative CDR HISTORICAL RESULTS - 05/19/2016 5:52 AM PARK SERVICES SPECIALIST 2 W[place] Historical Provider LAB BLOOD ORDERABLES Iwona mackay Result Performing Organization Address [facility] de Phone Number CDR HISTORICAL RESULTS * [...] ORDERABLES Iwona l Result Performing Organization Address [facility]/State/ZIP Co de Phone Number CDR HISTORICAL RESULTS documented in this encounter Visit Diagnoses Diagnosis Polycythemia vera (HCC) Polycythemia vera(238.4) Polycythemia vera documented in this encounter Care Teams Gas Maker Relationship Specialty Start Date End Date Wesley Em MD PCP - General 09/01/16 09/29/16 Wesley Em MD PCP - General 10/12/12 08/31/16 documented as of this encounter
--- OUTSIDE RECORDS SUMMARY | 2024-06-18 19:20 | XMS_ITS | Encounter Summary ---
Author Organization [facility] Healthcare Address [address] [place] [address] Care Team Providers Care Warp Dyeing Tender Name Role Phone Wesley Em MD Primary Care Provider [phone] Encounter Details Date Type Department Care Team (Late st Contact Info) Description 09/01/2016 10:09 AM PIPELINES LABORER - 09/01/2016 11:59 PM PIPELINES LABORER Hospital Encounter [facility] OP INTERIM Wesley Em MD [address] [place] [address] Discharge Disposition: Discharge to home or self care Social History Tobacco Use Types Packs/Day Years Used Date Smoking Tobacco: Former Alcohol Use Standard Drinks/Week Comments No 0 (1 standard drink = 0.6 oz pur e alcohol) Sex and Gender Information Value Date Recorded Sex Assigned at Not on file Legal Sex Male 6:00 PM PIPELINES LABORER Gender Identity Not on file Sexual [...] filedocumented in this encounter Care Teams Warp Dyeing Tender Relationship Specialty Start Date End Date Wesley Em MD PCP - General 09/01/16 09/29/16 documented as of this encounter
--- OUTSIDE RECORDS SUMMARY | 2024-06-18 19:20 | XMS_ITS | Encounter Summary ---
Author Organization [facility] Healthcare Address [address] [place] [address] Care Team Providers Care Human Factors Advisor Lead Name Role Phone Wesley Em MD Primary Care Provider [phone] Encounter Details Date Type Department Care Team (Late st Contact Info) Description 10/21/2016 Orders Only Cerner Lab Interim [phone] Jose De Jesus Rushing Jr., MD [facility] [place] [address] Social History Tobacco Use Types Packs/Day Years Used Date Smoking Tobacco: Former Alcohol Use Standard Drinks/Week Comments No 0 (1 standard drink = 0.6 oz pur e alcohol) Sex and Gender Information Value Date Recorded Sex Assigned at Not on file Legal Sex Male 6:00 PM SECY Gender Identity Not on file Sexual Orientation [...] ORDERABLES Final Result [facility] ([place]) 1 [facility] Department [place] [address] documented in this encounter Visit Diagnoses Not on filedocumented in this encounter Care Teams Human Factors Advisor Lead Relationship Specialty Start Date End Date Wesley Em MD PCP - General 09/30/16 12/01/21 documented as of this encounter
--- OUTSIDE RECORDS SUMMARY | 2024-06-18 19:20 | XMS_ITS | Encounter Summary ---
Author Organization [facility] Healthcare Address [address] [place] [address] Care Team Providers Care Well Reactivator Operator Name Role Phone Wesley Em MD Primary Care Provider [phone] Encounter Details Date Type Department Care Team (Latest Contact Info) Description 09/16/2016 12:22 PM CDT - 09/16/2016 8:20 PM CDT Hospital Encounter [facility] OP Simon Bucio MD [address] [address] Hydronephrosis with renal and ureteral calculus obstruction; Hyperlipidemia; Essential (primary) hypertension; assisted current use of aspirin Social History Tobacco Use Types Packs/Day Years Used Date Smoking Tobacco: Former Alcohol Use Standard Drinks/Week Comments No 0 (1 standard drink = 0.6 oz pur e alcohol) Sex and Gender Information Value Date Recorded Sex Assigned at Not on file 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 brown, irregular calculi fragments. ?? Stone Composition See Note 9:43 AM CDT [facility] HISTORICAL RESULTS Comment: Calculi composed primarily of [...] determined by FTIR analysis. ?? Performed by [employer], ?? [address], [facility] [place] [address] ?? [email or web address], Luis Spence MD, Lab. Director ?? 09/16/2016 6:30 PM CDT 09/19/2016 9:45 AM CDT us Simon Bucio MD LAB URINE ORDERABLES F inal Result [facility] HISTORICAL RESULTS * XR Abdomen Ap 1 [...] is adjacent bowel contents. ??This could be medical service representative of a renal calculus. ??There are [...] there is adjacentbowel contents. This could be medical service representative of a renal calculus. There arepelvic [...] Garrett M.D. [email or web address] 07:18 PM 07:18 PM [facility] [EOD] us Simon Bucio MD IMG FLUOROSCOPY PROCED URES Final Result documented in this encounter Visit Diagnoses Diagnosis Hydronephrosis with renal and ureteral calculus obstruction Hyperlipidemia Other and unspecified hyperlipidemia Essential (primary) hypertension Unspecified essential hypertension assisted current use of aspirin documented in this encounter Care Teams Well Reactivator Operator Relationship Specialty Start Date End Date Wesley Em MD PCP - General 09/01/16 09/29/16 documented as of this encounter
--- OUTSIDE RECORDS SUMMARY | 2024-06-18 19:20 | XMS_ITS | Encounter Summary ---
Author Organization [facility] Healthcare Address [address] [place] [address] Care Team Providers Care Orthotics Assistant Name Role Phone Wesley Em MD Primary Care Provider [phone] Encounter Details Date Type Department Care Team (Late st Contact Info) Description 10/21/2016 Orders Only [facility]ner Lab Interim [phone] Jose De Jesus Rushing Jr., MD [facility] [place] [address] Social History Tobacco Use Types Packs/Day Years Used Date Smoking Tobacco: Former Alcohol Use Standard Drinks/Week Comments No 0 (1 standard drink = 0.6 oz pur e alcohol) Sex and Gender Information Value Date Recorded Sex Assigned at Not on file 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
--- OUTSIDE RECORDS SUMMARY | 2024-06-18 19:20 | XMS_ITS | Encounter Summary ---
Author Organization [facility] Healthcare Address [address] [place] [address] Care Team Providers Care Material Planner Name Role Phone Wesley Em MD Primary Care Provider Encounter Details Date Type Department Care Team (Late st Contact Info) Description 10/21/2016 Orders Only Cer[facility] Lab Interim [phone] Jose De Jesus Rushing Jr., MD [facility] [place] [address] Social History Tobacco Use Types Packs/Day Years Used Date Smoking Tobacco: Former Alcohol Use Standard Drinks/Week Comments No 0 (1 standard drink = 0.6 oz pur e alcohol) Sex and Gender Information Value Date Recorded Sex Assigned at Not on file 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 Estimated glomerular filtration [...] ORDERABL ES Final Result Performing Organization Address City/State/[place] Co de Phone Number [facility] [place] 1 [facility] Department of Laboratories [place], [place] [id number] documented in this encounter Visit Diagnoses Not on filedocumented in this encounter Care Teams Material Planner Relationship Specialty Start Date End Date Wesley Em MD PCP - General 09/30/16 12/01/21 documented as of this encounter
--- OUTSIDE RECORDS SUMMARY | 2024-06-18 19:20 | XMS_ITS | Encounter Summary ---
Author Organization [facility] Healthcare Address [address] [place] [address] Care Team Providers Care M48/M60 Tank Driver Name Role Phone Wesley Em MD Primary Care Provider [phone] Encounter Details Date Type Department Care Team (Late st Contact Info) Description 10/21/2016 Orders Only Cerner Lab Interim [phone] Jose De Jesus Rushing Jr., MD [facility] [place] [address] Social History Tobacco Use Types Packs/Day Years Used Date Smoking Tobacco: Former Alcohol Use Standard Drinks/Week Comments No 0 (1 standard drink = 0.6 oz pur e alcohol) Sex and Gender Information Value Date Recorded Sex Assigned at Not on file 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
--- OUTSIDE RECORDS SUMMARY | 2024-06-18 19:20 | XMS_ITS | Encounter Summary ---
Author Organization [facility] Healthcare Address [address] [place] [address] Care Team Providers Care Water Resources Engineer Name Role Phone Wesley Em MD Primary Care Provider Encounter Details Date Type Department Care Team (Late st Contact Info) Description 10/21/2016 Orders Only Cerner Lab Interim [phone] Jose De Jesus Rushing Jr., MD 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
--- OUTSIDE RECORDS SUMMARY | 2024-06-18 19:20 | XMS_ITS | Encounter Summary ---
Author Organization [facility] Address [address] [place] [address] Care Team Providers Care Certified Indoor Environmentalist Name Role Phone Wesley Em MD Primary Care Provider [phone] Encounter Details Date Type Department Care Team (Late st Contact Info) Description 10/22/2016 Orders Only [facility] 1 [place] [phone] Kathleen Lundberg MD [address] [id number] Social History Tobacco Use Types Packs/Day Years Used Date Smoking Tobacco: Former Alcohol Use Standard Drinks/Week Comments No 0 (1 standard drink = 0.6 oz pur e alcohol) Sex and Gender Information Value Date Recorded Sex Assigned at Not on file 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
--- OUTSIDE RECORDS SUMMARY | 2024-06-18 19:20 | XMS_ITS | Encounter Summary ---
Author Organization [facility] Healthcare Address [address] [place] [address] Care Team Providers Care Pipe Coverer Name Role Phone Wesley Em MD Primary Care Provider [phone] Encounter Details Date Type Department Care Team (Late st Contact Info) Description 10/21/2016 6:32 PM CDT - 10/21/2016 11:59 PM CDT Emergency [facility] Emergency Department [address] [place] [address] Discharge Disposition: Discharge to home or self care Social History Tobacco Use Types Packs/Day Years Used Date Smoking Tobacco: Former Alcohol Use Standard Drinks/Week Comments No 0 (1 standard drink = 0.6 oz pur e alcohol) Sex and Gender Information Value Date Recorded Sex Assigned at Not on file 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
--- OUTSIDE RECORDS SUMMARY | 2024-06-18 19:20 | XMS_ITS | Encounter Summary ---
Author Organization [facility] Healthcare Address [address] [place] [address] Care Team Providers Care Concrete Rod Buster Name Role Phone Wesley Em MD Primary Care Provider [phone] Encounter Details Date Type Department Care Team (Late st Contact Info) Description 10/22/2016 Orders Only [facility] Lab Interim [phone] Jose Bucio MD [address] [place] [address] [address] [place] [address] Social History Tobacco Use Types Packs/Day Years Used Date Smoking Tobacco: Former Alcohol Use Standard Drinks/Week Comments No 0 (1 standard drink = 0.6 oz pur e alcohol) Sex and Gender Information Value Date Recorded Sex Assigned at Not on file 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 Estimated glomerular filtration [...] ORDERABLES Final Re sult Performing Organization Address City/State/[facility] Co de Phone Number [facility] ([place]) 1 [facility] Department [place] [address] documented in this encounter Visit Diagnoses Not on filedocumented in this encounter Care Teams Concrete Rod Buster Relationship Specialty Start Date End Date Wesley Em MD PCP - General 09/30/16 12/01/21 documented as of this encounter
--- OUTSIDE RECORDS SUMMARY | 2024-06-18 19:20 | XMS_ITS | Encounter Summary ---
Author Organization [facility] Healthcare Address [address] [place] [address] Care Team Providers Care Climate Change Risk Assessor Name Role Phone Wesley Em MD Primary Care Provider [phone] Encounter Details Date Type Department Care Team (Latest Contact Info) Description 10/21/2016 10:11 PM CDT - 10/23/2016 11:46 AM CDT Hospital Encounter [facility] Medical Care [address] [place] [address] Milagro Fletcher MD [address] [facility] [address] [place] [address] [place] [address] Maritza Lundberg MD [address] [facility] [address] [place] [address] [place] [address] Discharge Disposition: Discharge to home or self care Social History Tobacco Use Types Packs/Day Years Used Date Smoking Tobacco: Former Alcohol Use Standard Drinks/Week Comments No 0 (1 standard drink = 0.6 oz pur e alcohol) Sex and Gender Information Value Date Recorded Sex Assigned at Not on file Legal Sex Male 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 Patient had his 50th anniversary libertarian today, so thefamily wanted to see if [...] abdomen and pelvis.2. Chest x- ray.PHILLIPDrFela Craft Talent Acquisition Sourcer.DISCHARGE PLAN/CONDITION ON DISCHARGEVital Signs: Temperature 98.5, heart [...] 10/24/2016 04:58 PM CDT Maritza Lundberg M.D.PG/ams LP: 10/23/2016 10:52TD: 10/23/2016 12:56CC:Wesley Em M.D. documented [...] AM CDT HISTORY AND PHYSICALPatient: VERNA ZUNIGAMRN: [id number]: [id number] Room No: [id number]: 1945 Patient Type: IPAttend.: [...] stent (patient is following up withDr. Darryl Bcuio, urologist).PAST SURGICAL HISTORY1. Bilateral ureteral stent placement and exchange.2. Knee replacement.3. Cardiac stents.MEDICATIONPlease refer to admission [facility] rec for complete details.ALLERGIESCIPROFLOXACIN (RASH), apple.SOCIAL HISTORYPatient [...] Temperature 98.3. Heart rate 113, currently 80. Puczrwrhezt21, SpO2 of 98% on room air. Blood pressure 173/103.General Appearance: Patient is alert and oriented x3. No acute distress.HEENT: Atraumatic, normocephalic.Pupils are equal, round. Extraocularmovements intact. Moist mucous membranes.CVS: RRR.Respiration: Clear to auscultation bilaterally.Abdomen: Soft, nontender, nondistended. Bowel sounds normoactive.Extremities: No edema. No calf tenderness.Neuro: No focal deficits.Psychiatric: Normal mood and affect.LAB DATASodium 144, potassium 4.2, chloride 107, bicarb 21, anion gap 16, [id number], BUN 47.2, creatinine 2.58, lactate 2.4. AST, [...] 10/23/2016 01:53 PM CDT Maritza Lundberg M.D.PG/rusty NF: 10/22/2016 13:55TD: 10/22/2016 14:45CC:Wesley Em M.D. documented in this encounter Consult Notes * Miscellaneous, Not In File - 10/22/2016 5:00 AM CDT CONSULTATION REPORTPatient: VERNA ZUNIGAMRN: [id number] Service Date: 10/22/2016Account: [id number] Room No: [id number]: 1945 Patient Type: IPAttend.: [...] he gets regurgitation so he came [facility] emergency room where he was admitted. He [...] AND FAMILY HISTORYPatient lives with his in [place]. Patient used to smoke in thepast but [...] On 10/27/2016 12:18 PM CDT NEIL Brown/rusty MB: 10/22/2016 15:55TD: 10/23/2016 11:54CC:Wesley Em M.D. documented [...] 2:17 PM CDT XR Chest 2 Views ?[id number] ??Acc#: ??[id number] DATE OF EXAM: ??Oct 23 2016 CLINICAL [...] LUNDBERG Requesting: ??DR MARITZA LUNDBERG Requesting Fax: ??[phone] Attending Fax: ??-- Attending ID: ??[id number] Requesting ID: ??[id number] Report To 1 ID: ??[id number] Report To 1 Name: ??DR JENNIFER MILES Report To 1 FAX: ??-- NextGen Order #: ?? Procedure Note Miscellaneous, Not In File / Provider, MD Wilian - 11/25/2016 XR Chest 2 Views [id number] Acc#: [id number] DATE OF EXAM: Oct 23 2016 CLINICAL [...] LUNDBERG Requesting Attending Fax: -- Attending ID: [id number] Requesting ID: [id number] Report To 1 ID: [id number] Report To 1 Name: DR JENNIFER MILES Report To 1 FAX: -- NextGen Order #: us Not In File Miscellaneous IMG XR PROCEDURES Iwona l Result * CT Abdomen Pelvis WO Contrast (10/22/2016 7:07 PM CDT) Anatomical Region Laterality Modality Body N/A Computed Tomogra phy 10/22/2016 7:07 PM CDT Narrative 10/22/2016 7:[address] Abd/[place] ?[id number] ??Acc#: ??[id number] DATE OF EXAM: ??Oct 22 2016 CLINICAL [...] LEFT RENAL CYST. Preliminary report faxed to [facility] 10/23/16 at 10:21am Interpreting Physician: ??REECE OLVERA M.D. ??Read on: ??Oct 22 2016 ??2:57P Transcribed by: ??vaalisson ??On: Oct 23 2016 10:21A Approved Electronically by: ??REECE OLVERA M.D. ??on: ??Oct 24 2016 ??8:46A Attending: ??DR MARITZA LUNDBERG Requesting: ??DR MARITZA LUNDBERG Requesting Fax: ??[phone] Attending Fax: ??-- Attending ID: ??[id number] Requesting ID: ??[id number] Report To 1 ID: ??[id number] Report To 1 Name: ??DR JENNIFER MILES Report To 1 FAX: ??-- NextGen Order #: ?? Procedure Note Miscellaneous, Not In File / Provider, MD Wilian - 11/25/2016 CT Abd/[place] [id number] Acc#: [id number] DATE OF EXAM: Oct 22 2016 CLINICAL [...] LEFT RENAL CYST. Preliminary report faxed to [facility] 10/23/16 at 10:21am Interpreting Physician: REECE OLVERA M.D. Read on: Oct 22 2016 2:57P Transcribed by: beena On: Oct 23 2016 10:21A Approved Electronically by: REECE OLVERA M.D. on: Oct 24 2016 8:46A Attending: DR MARITZA LUNDBERG Requesting: DR MARITZA LUNDBERG Requesting Attending Fax: -- Attending ID: [id number] Requesting ID: [id number] Report To 1 ID: [id number] Report To 1 Name: DR JENNIFER MILES Report To 1 FAX: -- NextGen Order #: us Not In File Miscellaneous IMG CT PROCEDURES Iwona l Result * Surgical pathology (10/22/2016 8:48 AM CDT) 10/22/2016 8:48 AM CDT 10/24/2016 8:48 AM CDT [facility] [place] [facility] - 10/27/2016 3:24 PM CDT [facility] Department of Pathology [address] [place] [address] Final Report with Addendum ?Patient Name: VERNA ZUNIGA Address: [address] Service: Medical ??[place], [place] ??6 Location: [facility] Taken: 10/22/2016 Gender: M Received 10/24/2016 : 1945 (Age: 71) Hospital #: [id number] Accessioned: 10/24/2016 ?? Patient Type: [facility] IP Reported 10/27/2016 Physician(s): Maritza Lundberg MD ?? Diagnosis: KIDNEY, PROCEDURE NOT SPECIFIED: ? - CALCULI (GROSS EXAMINATION ONLY) ? - CHEMICAL ANALYSIS PENDING ?? Brooklyn Ortiz M.D. ??Report Electronically Reviewed and Signed Out By ??Brooklyn Ortiz M.D. ??10/27/2016 15:24:22 Procedure/Addenda: Scanned Report Interpretation Stone analysis has been completed at [facility]. See scanned image of results ([id number]) below or review results in the Pathology section in Clinical Desktop. If access to Clinical Desktop is not available, please call pathology for a hard copy of the analysis ([phone]). ? Report Electronically Reviewed and Signed Out [...] determined by the Surgical Pathology Department at [facility] as part of an ongoing senior quality analyst program and in compliance with federally [...] characteristics determined by the Surgical Pathology Department [facility]. ??It has not been cleared or approved by the U. S. Food and Drug Administration. Maritza Lundberg MD LAB PATHOLOGY ORDERABLES Edited Result - Final [facility] [address] [place] [address] * XR Chest Portable (10/22/2016 2:03 AM CDT) Anatomical Region Laterality Modality Body N/A Radiographic Jennifer ging 10/22/2016 2:03 AM CDT Narrative 10/22/2016 2:03 AM CDT XR Chest Portable ? [id number] ??Acc#: ??[id number] DATE OF EXAM: ??Oct 21 2016 CLINICAL [...] Fax: ??-- Attending Fax: ??-- Attending ID: ??[id number] Requesting ID: ??[id number] Report To 1 ID: ??[id number] Report To 1 Name: ??DR JENNIFER MILES Report To 1 FAX: ??-- NextGen Order #: ?? Procedure Note Miscellaneous, Not In File / Provider, MD Wilian - 11/26/2016 XR Chest Portable [id number] Acc#: [id number] DATE OF EXAM: Oct 21 2016 CLINICAL [...] Fax: -- Attending Fax: -- Attending ID: [id number] Requesting ID: [id number] Report To 1 ID: [id number] Report To 1 Name: DR EJNNIFER MILES Report To 1 FAX: -- NextGen Order #: us Not In File Miscellaneous IMG XR PROCEDURES Iwona l Result documented in this encounter Visit Diagnoses Not on filedocumented in this encounter Care Teams Climate Change Risk Assessor Relationship Specialty Start Date End Date Wesley Em MD PCP - General 09/30/16 12/01/21 documented as of this encounter
--- OUTSIDE RECORDS SUMMARY | 2024-06-18 19:20 | XMS_ITS | Encounter Summary ---
Author Organization [facility] Address [address] [facility] [facility] [address] [place] [address] Care Team Providers Care Upper Cutter Machine Name Role Phone Wesley Em MD Primary Care Provider [phone] Encounter Details Date Type Department Care Team (Late st Contact Info) Description 10/22/2016 Orders Only [facility] [address] [place] [id number] Kathleen Lundberg MD [address] [id number] Social History Tobacco Use Types Packs/Day Years Used Date Smoking Tobacco: Former Alcohol Use Standard Drinks/Week Comments No 0 (1 standard drink = 0.6 oz pur e alcohol) Sex and Gender Information Value Date Recorded Sex Assigned at Not on file 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
--- OUTSIDE RECORDS SUMMARY | 2024-06-18 19:20 | XMS_ITS | Encounter Summary ---
Author Organization [facility] Healthcare Address [address] [place] [address] Care Team Providers Care [employer] Principal Name Role Phone Wesley Em MD Primary Care Provider [phone] Encounter Details Date Type Department Care Team (Late st Contact Info) Description 10/22/2016 Orders Only [facility] [phone] Jose Bucio MD [address] [place] [address] [address] [place] [address] Social History Tobacco Use Types Packs/Day Years Used Date Smoking Tobacco: Former Alcohol Use Standard Drinks/Week Comments No 0 (1 standard drink = 0.6 oz pur e alcohol) Sex and Gender Information Value Date Recorded Sex Assigned at Not on file 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 BUN 47.2(H) 8.0 - 25.0 mg/dL [facility] ([place]) Creatinine 2.58(H) 0.70 - 1.30 mg/dL [facility] ([place]) Calcium 8.8 8.6 - 10.2 mg/dL [facility] ([place]) BUN/creat ratio 18 10 - 20 [facility] ([place] Blood specimen (specimen) 10/22/2016 6:51 AM CDT 10/22/2016 7:31 AM CDT Jose Bucio MD LAB BLOOD ORDERABLES Final Re sult [facility] 1 [facility] [place] [address] documented in this encounter Visit Diagnoses Not on filedocumented in this encounter Care Teams [employer] Principal Relationship Specialty Start Date End Date Wesley Em MD PCP - General 09/30/16 12/01/21 documented as of this encounter
--- OUTSIDE RECORDS SUMMARY | 2024-06-18 19:20 | XMS_ITS | Encounter Summary ---
Author Organization [facility] Healthcare Address [address] [place] [address] Care Team Providers Care Stamping Die Maker Bench Name Role Phone Wesley Em MD Primary Care Provider [phone] Encounter Details Date Type Department Care Team (Latest Contact Info) Description 09/15/2016 1:37 PM CDT Hospital Encounter [facility] Simon Bucio MD [address] [address] Encounter for preprocedural laboratory examination; Calculus of kidney; Encounter for preprocedural cardiovascular examination; Abnormal electrocardiogram Social History Tobacco Use Types Packs/Day Years Used Date Smoking Tobacco: Former Alcohol Use Standard Drinks/Week Comments No 0 (1 standard drink = 0.6 oz pur e alcohol) Sex and Gender Information Value Date Recorded Sex Assigned at Not on file Legal Sex Male 6:00 PM CHEF & OWNER Gender Identity Not on file Sexual Orientation [...] Urine Ketones NEGATIVE NEGATIVE mg/dL Ur Specific [place] 1.019 1.005 - 1.025 Urine Blood NEGATIVE NEGATIVE mg/dl Urine pH 6.0 5.0 - 8.0 09/15/2016 4:02 PM CDT [facility] HISTORICAL RESULTS Urine Protein 30(H) NEGATIVE mg/dL 09/15/2016 4:02 PM T [facility] HISTORICAL RESULTS Urine Urobilinogen NORMAL NORMAL mg/dL 09/15/2016 4:02 PM T [facility] HISTORICAL RESULTS Urine Nitrite NEGATIVE NEGATIVE 09/15/2016 4:02 PM T [facility] HISTORICAL RESULTS Ur Leukocyte Esterase 25(H) NEGATIVE Orquidea/ul 09/15/2016 4:02 PM T [facility] HISTORICAL RESULTS Ur Microscopic Review Indicated or Ordered 09/15/2016 4:02 PM T [facility] HISTORICAL RESULTS Urine RBC 4 0 - 2 /HPF 09/15/2016 4:02 PM T [facility] HISTORICAL RESULTS Urine WBC 12 0 - 2 /HPF 09/15/2016 4:02 PM T [facility] HISTORICAL RESULTS Urine Mucus RARE /LPF Ur Squamous Epith Cells Rare /HPF 09/15/2016 3:10 PM CDT 09/15/2016 3:55 PM CDT Narrative [facility] HISTORICAL RESULTS - 09/15/2016 4:02 PM CDT us Simon Bucio MD LAB URINE ORDERABLES F inal Result [facility] HISTORICAL RESULTS * CBC with auto differential (09/15/2016 2:49 PM CDT) WBC 5.8 4.6 - 10.2 x10 3/ul 09/15/2016 2:58 PM CDT [facility] HISTORICAL RESULTS RBC 5.16 4.11 - 5.71 x10 6/ul 09/15/2016 2:58 PM CDT [facility] HISTORICAL RESULTS Hemoglobin 14.4 13.0 - 17.0 g/dl 09/15/2016 2:58 PM CDT [facility] HISTORICAL RESULTS Hct 42.7 38.2 - 48.5 % 09/15/2016 2:58 PM T [facility] HISTORICAL RESULTS MCV 82.8 80.0 - 97.0 fl MCH 27.9 27.0 - 31.2 pg MCHC 33.7 31.8 - 35.4 g/dl RDW 13.7 11.6 - 14.8 % Plt Count 184 124 - 400 x10 3/ul MPV 10.4 7.4 - 10.4 fl Neut % 56.3 37.0 - 85.0 % Immature Gran % 0.3 0.0 - 3.0 % Lymph % 26.6 5.0 - 45.0 % [place] % 11.0 3.0 - 15.0 % Eos [...] 0.7 x10 3/ul 09/15/2016 2:58 PM T [facility] HISTORICAL RESULTS Absolute Basos (auto) 0.1 0.0 - 0.2 x10 3/ul 09/15/2016 2:58 PM T [facility] HISTORICAL RESULTS 09/15/2016 2:49 PM CDT 09/15/2016 2:54 PM CDT us Simon Bucio MD LAB BLOOD ORDERABLES F inal Result [facility] HISTORICAL RESULTS * (ABNORMAL) Basic metabolic panel (09/15/2016 2:49 PM CDT) Sodium 143 135 - 145 mmol/L 09/15/2016 3:20 PM T [facility] HISTORICAL RESULTS Potassium 4.2 3.3 - 5.1 mmol/L 09/15/2016 3:20 PM T [facility] HISTORICAL RESULTS Chloride 105 96 - 108 mmol/L 09/15/2016 3:20 PM T [facility] HISTORICAL RESULTS Carbon Dioxide 26 22 - 32 mmol/L 09/15/2016 3:20 PM T [facility] HISTORICAL RESULTS Anion Gap 12 7 - 16 Glucose 104(H) 70 - 100 mg/dL 09/15/2016 3:20 PM T [facility] HISTORICAL RESULTS BUN 20 8 - 23 [...] - 10.2 mg/dL 09/15/2016 3:20 PM CDT [facility] HISTORICAL RESULTS 09/15/2016 2:49 PM CDT 09/15/2016 2:54 PM CDT us Simon Bucio MD LAB BLOOD ORDERABLES F inal Result [facility] HISTORICAL RESULTS documented in this encounter Visit Diagnoses Diagnosis Encounter for preprocedural laboratory examination Calculus of kidney Encounter for preprocedural cardiovascular examination Abnormal electrocardiogram Nonspecific abnormal electrocardiogram (ECG) (EKG) documented in this encounter Care Teams Stamping Die Maker Bench Relationship Specialty Start Date End Date Wesley Em MD PCP - General 09/01/16 09/29/16 documented as of this encounter
--- OUTSIDE RECORDS SUMMARY | 2024-06-18 19:21 | XMS_ITS | Encounter Summary ---
Author Organization [facility] Healthcare Address [address] [place] [address] Care Team Providers Care Pretzel Cooker Name Role Phone Wesley Em MD Primary Care Provider [phone] Encounter Details Date Type Department Care Team (Late st Contact Info) Description 10/13/2015 10:55 AM CDT - 10/13/2015 11:59 PM CDT Hospital Encounter [facility] Wesley Em MD [address] [place] [address] Elevated prostate specific antigen (PSA) Social History Tobacco Use Types Packs/Day Years Used Date Smoking Tobacco: Former Alcohol Use Standard Drinks/Week Comments No 0 (1 standard drink = 0.6 oz pur e alcohol) Sex and Gender Information Value Date Recorded Sex Assigned at Not on file Legal Sex Male 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
--- OUTSIDE RECORDS SUMMARY | 2024-06-18 19:21 | XMS_ITS | Encounter Summary ---
Author Organization [facility] Healthcare Address [address] [place] [address] Care Team Providers Care Paper Machine Tender Name Role Phone Wesley Em MD Primary Care Provider [phone] Encounter Details Date Type Department Care Team (Late st Contact Info) Description 09/09/2015 8:00 AM SUPERVISOR PAPER TESTING - 09/09/2015 11:59 PM [facility] Hospital Encounter [facility] Wesley Em MD [address] [place] [address] Atherosclerotic heart disease of hoopa coronary artery without angina pectoris; Disorder of prostate Social History Tobacco Use Types Packs/Day Years Used Date Smoking Tobacco: Former Alcohol Use Standard Drinks/Week Comments No 0 (1 standard drink = 0.6 oz pur e alcohol) Sex and Gender Information Value Date Recorded Sex Assigned at Not on file Legal Sex Male 6:00 PM SUPERVISOR PAPER TESTING Gender Identity Not on file Sexual Orientation [...] URINE MICROBIOLOGY Routine 09/09/2015 12 :00 AM SUPERVISOR PAPER TESTING documented in this encounter Results * Urine Microbiology (09/09/2015 12:00 AM SUPERVISOR PAPER TESTING) 09/09/2015 Narrative HISTORICAL RESULTS - 09/12/2015 4:44 PM SUPERVISOR PAPER TESTING [facility] ?Patient Name: ?VILLA ALSTON SR J ?Med. Rec#: ?? [id number] ?Pt. Acct.#: ??[id number] ?Birthdate: ?? 1945 ?Age / Sex: ?? [...] Visit Diagnoses Diagnosis Atherosclerotic heart disease of hoopa coronary artery without angina pectoris Disorder of prostate Unspecified disorder of prostate documented in this encounter Care Teams Paper Machine Tender Relationship Specialty Start Date End Date Wesley Em MD PCP - General 10/12/12 08/31/16 documented as of this encounter
--- OUTSIDE RECORDS SUMMARY | 2024-06-18 19:21 | XMS_ITS | Encounter Summary ---
Author Organization [facility] Healthcare Address [address] [place] [address] Care Team Providers Care Humanities Department Chair Name Role Phone Wesley Em MD Primary Care Provider [phone] Encounter Details Date Type Department Care Team (Late st Contact Info) Description 09/03/2015 10:26 AM SENIOR VICE PRESIDENT AND CHIEF INFORMATION OFFICER - 09/03/2015 11:59 PM SENIOR VICE PRESIDENT AND CHIEF INFORMATION OFFICER Hospital Encounter [facility] Hoskins, Roger Steele MD [address] [place] [address] Polycythemia vera ([facility]) Social History Tobacco Use Types Packs/Day Years Used Date Smoking Tobacco: Former Alcohol Use Standard Drinks/Week Comments No 0 (1 standard drink = 0.6 oz pur e alcohol) Sex and Gender Information Value Date Recorded Sex Assigned at Not on file Legal Sex Male 6:00 PM SENIOR VICE PRESIDENT AND CHIEF INFORMATION OFFICER Gender Identity Not on file Sexual [...] GLOMERULAR FILTRATION RATE Routine 09/03/2015 10:50 AM SENIOR VICE PRESIDENT AND CHIEF INFORMATION OFFICER PLASMA BASIC METABOLIC PANEL Routine 09/03/2015 4:50 AM SENIOR VICE PRESIDENT AND CHIEF INFORMATION OFFICER BLOOD CELL COUNT (CBC) Routine 09/03/2015 4:30 AM SENIOR VICE PRESIDENT AND CHIEF INFORMATION OFFICER documented in this encounter Results * Blood [...] ORDERABLES Iwona mackay Result Performing Organization Address City/[facility] Co de Phone Number HISTORICAL RESULTS * [...] Possible Kidney Failure ?< 15 ??mL/min/1.73m2 If -Tristanian multiply value by 1.16. ??Estimated glomerular filtration [...] ORDERABLES Iwona l Result Performing Organization Address City/[facility] de Phone Number HISTORICAL RESULTS * Serum estimated glomerular filtration rate (10/01/2015 10:40 AM CDT) eGFR 46 ml/min/1.7 3 m2 HISTORICAL RESULTS Comment: Interpretation of Estimated GFR (eGFR): Normal ?>/= 60 mL/min/1.73m2 Possible Chronic Kidney Disease ??15 - 59 mL/min/1.73m2 Possible Kidney Failure ?< 15 ??mL/min/1.73m2 If -Tristanian multiply value by 1.16. ??Estimated glomerular filtration [...] ORDERABLES Iwona l Result Performing Organization Address City/[facility] de Phone Number HISTORICAL RESULTS * (ABNORMAL) [...] ORDERABLES Iwona l Result Performing Organization Address [facility] de Phone Number HISTORICAL RESULTS * (ABNORMAL) [...] ORDERABLES Iwona mackay Result Performing Organization Address [facility] de Phone Number HISTORICAL RESULTS * Serum estimated glomerular filtration rate (09/03/2015 10:50 AM SENIOR VICE PRESIDENT AND CHIEF INFORMATION OFFICER) eGFR >60 ml/min/1.7 3 m2 HISTORICAL RESULTS Comment: Interpretation of Estimated GFR (eGFR): Normal ?>/= 60 mL/min/1.73m2 Possible Chronic Kidney Disease ??15 - 59 mL/min/1.73m2 Possible Kidney Failure ?< 15 ??mL/min/1.73m2 If -Tristanian multiply value by 1.16. ??Estimated glomerular filtration [...] in children. Serum 09/03/2015 10:5 0 AM SENIOR VICE PRESIDENT AND CHIEF INFORMATION OFFICER Historical Provider LAB BLOOD ORDERABLES Iwona l Result Performing Organization Address [facility] de Phone Number HISTORICAL RESULTS * (ABNORMAL) Plasma basic metabolic panel (09/03/2015 4:50 AM SENIOR VICE PRESIDENT AND CHIEF INFORMATION OFFICER) Sodium 142 135 - 145 mmol/L HISTORICAL [...] HIST ORICAL RESULTS Plasma 09/03/2015 4:50 AM SENIOR VICE PRESIDENT AND CHIEF INFORMATION OFFICER Narrative HISTORICAL RESULTS - 09/03/2015 6:16 AM SENIOR VICE PRESIDENT AND CHIEF INFORMATION OFFICER 3 [place] us Historical Provider LAB BLOOD ORDERABLES Iwona l Result HISTORICAL RESULTS * Blood cell count (CBC) (09/03/2015 4:30 AM SENIOR VICE PRESIDENT AND CHIEF INFORMATION OFFICER) WBC 5.7 3.8 - 9.8 K/cumm HISTORICAL [...] RESULTS Blood specimen (specimen) 09/03/2015 4:30 AM SENIOR VICE PRESIDENT AND CHIEF INFORMATION OFFICER Narrative HISTORICAL RESULTS - 09/03/2015 4:40 AM SENIOR VICE PRESIDENT AND CHIEF INFORMATION OFFICER 3 [place] us Historical Provider LAB BLOOD ORDERABLES Iwona l Result HISTORICAL RESULTS documented in this encounter Visit Diagnoses Diagnosis Polycythemia vera (HCC) documented in this encounter Care Teams Humanities Department Chair Relationship Specialty Start Date End Date Wesley Em MD PCP - General 10/12/12 08/31/16 documented as of this encounter
--- OUTSIDE RECORDS SUMMARY | 2024-06-18 19:21 | XMS_ITS | Encounter Summary ---
Author Organization [facility] Healthcare Address [address] [place] [address] Care Team Providers Care Child Custody Evaluator Name Role Phone Wesley Em MD Primary Care Provider [phone] Encounter Details Date Type Department Care Team (Late st Contact Info) Description 06/17/2016 2:29 PM TEA ROOM MANAGER - 06/17/2016 11:59 PM TEA ROOM MANAGER Hospital Encounter [facility] CLINCONV Wesley Em MD [address] [place] [id number] Dysphagia Social History Tobacco Use Types Packs/Day Years Used Date Smoking Tobacco: Former Alcohol Use Standard Drinks/Week Comments No 0 (1 standard drink = 0.6 oz pur e alcohol) Sex and Gender Information Value Date Recorded Sex Assigned at Not on file Legal Sex Male 6:00 PM TEA ROOM MANAGER Gender Identity Not on file Sexual [...] Comments SERUM MAGNESIUM Routine 06/17/2016 2:20 PM TEA ROOM MANAGER SERUM HEPATITIS C AB Routine 06/17/2016 2:20 PM TEA ROOM MANAGER SERUM ESTIMATED GLOMERULAR FILTRATION RATE Routine 06/17/2016 2:20 PM TEA ROOM MANAGER PLASMA BASIC METABOLIC PANEL Routine 06/17/2016 2:20 PM TEA ROOM MANAGER DISCHARGE LABORATORY CUMULATIVE REPORT 06/17/2016 documented in this encounter Results * Plasma basic metabolic panel (06/17/2016 2:20 PM TEA ROOM MANAGER) Sodium 139 135 - 145 mmol/L CDR [...] CDR HISTORICAL RESULTS Plasma 06/17/2016 2:20 PM TEA ROOM MANAGER us Wesley Em MD LAB BLOOD ORDERABLES Final Res ult CDR HISTORICAL RESULTS * Serum Hepatitis C ab (06/17/2016 2:20 PM TEA ROOM MANAGER) Pathologist [facility] HCV ab Negative Negative CDR HISTOR ICAL RESULTS Serum 06/17/2016 2:20 PM TEA ROOM MANAGER Wesley Em MD LAB BLOOD ORDERABLES Final Res ult Performing Organization Address [facility] Co de Phone Number CDR HISTORICAL RESULTS * Serum magnesium (06/17/2016 2:20 PM TEA ROOM MANAGER) [facility] Magnesium 1.9 1.8 - 2.6 mg/dl CDR HISTORICAL RESULTS Serum 06/17/2016 2:20 PM TEA ROOM MANAGER Wesley Em MD LAB BLOOD ORDERABLES Final Res ult Performing Organization Address [facility] de Phone Number CDR HISTORICAL RESULTS * Serum estimated glomerular filtration rate (06/17/2016 2:20 PM TEA ROOM MANAGER) [facility] eGFR 55 ml/min/1.7 3 m2 CDR HISTORICAL RESULTS Comment: Interpretive Data Reference Interval Normal ?>/= 90 mL/min/1.73m2 Mildly decreased* ? 60 - 89 mL/min/1.73m2 Mildly to moderately decreased ?45 - 59 mL/min/1.73m2 Moderately to severely decreased ??30 - 44 mL/min/1.73m2 Severely decreased ?15 - 29 mL/min/1.73m2 Kidney Failure ?< 15 ??mL/min/1.73m2 *Relative to young adult level If -New Zealander multiply value by 1.16. Estimated glomerular filtration [...] last reviewed 2016. Serum 06/17/2016 2:20 PM TEA ROOM MANAGER Wesley Em MD LAB BLOOD ORDERABLES Final Res ult CDR HISTORICAL RESULTS * DISCHARGE LABORATORY CUMULATIVE REPORT (06/17/2016) Narrative 06/17/2016 Ordered by an unspecified provider. us Historical Provider LAB BLOOD ORDERABLES Iwona l Result documented in this encounter Visit Diagnoses Diagnosis Dysphagia documented in this encounter Care Teams Child Custody Evaluator Relationship Specialty Start Date End Date Wesley Em MD PCP - General 10/12/12 08/31/16 documented as of this encounter
--- OUTSIDE RECORDS SUMMARY | 2024-06-18 19:21 | XMS_ITS | Encounter Summary ---
Author Organization [facility] Healthcare Address [address] [place] [address] Care Team Providers Care Varnisher Apprentice Name Role Phone Wesley Em MD Primary Care Provider [phone] Encounter Details Date Type Department Care Team (Late st Contact Info) Description 03/10/2015 2:19 PM CDT - 03/10/2015 11:59 PM CDT Hospital Encounter [facility] CLINCONV Wesley Em MD [address] [place] [address] Type 2 or unspecified type diabetes mellitus; Mixed hyperlipidemia; Coronary atherosclerosis Social History Tobacco Use Types Packs/Day Years Used Date Smoking Tobacco: Former Alcohol Use Standard Drinks/Week Comments No 0 (1 standard drink = 0.6 oz pur e alcohol) Sex and Gender Information Value Date Recorded Sex Assigned at Not on file Legal Sex Male 6:00 PM LIFT ELECTRICIAN Gender Identity Not on file Sexual [...] Coronary atherosclerosis of unspecified type of vessel, [place] or graft documented in this encounter Care Teams Varnisher Apprentice Relationship Specialty Start Date End Date Wesley Em MD PCP - General 10/12/12 08/31/16 documented as of this encounter
--- OUTSIDE RECORDS SUMMARY | 2024-06-18 19:21 | XMS_ITS | Encounter Summary ---
Author Organization [facility] Healthcare Address [address] [place] [address] Care Team Providers Care Frit Maker Name Role Phone Wesley Em MD Primary Care Provider [phone] Encounter Details Date Type Department Care Team (Late st Contact Info) Description 12/11/2013 9:54 AM CDT - 05/05/2014 11:59 PM WET SILK HANGER Hospital Encounter [facility] Colindres, Sparkle Steele MD [address] [place] [address]184 Polycythemia vera (HCC) Social History Tobacco Use Types Packs/Day Years Used Date Smoking Tobacco: Former Alcohol Use Standard Drinks/Week Comments No 0 (1 standard drink = 0.6 oz pur e alcohol) Sex and Gender Information Value Date Recorded Sex Assigned at Not on file Legal Sex Male 6:00 PM WET SILK HANGER Gender Identity Not on file Sexual Orientation [...] BASIC METABOLIC PANEL Routine 05/05/2014 10:25 AM WET SILK HANGER BLOOD CELL COUNT (CBC) Routine 05/05/2014 8:22 AM WET SILK HANGER DISCHARGE LABORATORY CUMULATIVE REPORT Routine 05/05/2014 12:00 AM WET SILK HANGER SERUM BASIC METABOLIC PANEL Routine 03/10/2014 10:50 [...] Serum basic metabolic panel (05/05/2014 10:25 AM WET SILK HANGER) BUN 22.0 6.0 - 23.0 mg/dl HISTORICAL [...] RESULTS Comment: eGFR: >70 ml/min/1.73sq.m if non -Marshallese. eGFR: >70 ml/min/1.73sq.m if -Marshallese. AVE GFR for 60-69 yr. age group: ??85 ml/min/173sq.m Calculated using MDRD Equation BUN/creat ratio 20 10 - 20 HIST ORICAL RESULTS A. gap 14 7 - 14 mmol/L HISTORICAL RESULTS Osmo, calc 282 280 - 301 mOsm/kg HISTORICAL RESULTS Calcium 9.4 8.6 - 9.8 mg/dl HISTORICAL RESULTS Serum 05/05/2014 10:2 5 AM WET SILK HANGER us Sparkle Colindres MD LAB BLOOD ORDERABLES Fin al Result HISTORICAL RESULTS * (ABNORMAL) Blood cell count (CBC) (05/05/2014 8:22 AM WET SILK HANGER) WBC 5.6 4.5 - 10.6 K/cumm HISTORICAL [...] RESULTS Blood specimen (specimen) 05/05/2014 8:22 AM WET SILK HANGER us Sparkle Colindres MD LAB BLOOD ORDERABLES Fin al Result HISTORICAL RESULTS * Discharge Laboratory Cumulative Report (05/05/2014 12:00 AM WET SILK HANGER) 05/05/2014 Narrative HISTORICAL RESULTS - 07/06/2014 2:40 AM WET SILK HANGER Patient No: [id number] ? [facility] Patient Name: VILLA ALSTON ?[facility] Healthcare Age: 68 YRS ?: 1945 ?Sex:M ?[address] )[phone] ?? Adm Dt: 12/11/2013 ?[place], [place] ??[address] Created: 07/06/2014 ??0240 ?? Pt. Type: D [...] ?? CONTINUED ?Page: ?? 1 Patient No: [id number] ? [facility] Patient Name: VILLA ALSTON ?[facility] Healthcare Age: 68 YRS ?: 1945 ?Sex:M ?[address] )[phone] ?? Adm Dt: 12/11/2013 ?[place], [place] ??[address] Created: 07/06/2014 ??0240 ?? Pt. Type: D [...] ?? CONTINUED ?Page: ?? 2 Patient No: [id number] ? [facility] Patient Name: VILLA ALSTON ?[facility] Age: 68 YRS ?: 1945 ?Sex:M ?[address] )[phone] ?? Adm Dt: 12/11/2013 ?[place], [place] ??[address] Created: 07/06/2014 ??0240 ?? Pt. Type: D [...] ?? CONTINUED ?Page: ?? 3 Patient No: [id number] ? [facility] Patient Name: VILLA ALSTON ?[facility] Age: 68 YRS ?: 1945 ?Sex:M ?[address] )[id number] ?? Adm Dt: 12/11/2013 ?[place] ??[id number] Created: 07/06/2014 ??0240 ?? Pt. Type: D ? Discharge Dt: 05/05/2014 ? Pathologists: Brooklyn Ortiz MD Admit Attend Dr: SPARKLE COLINDRES MD ? GENERAL CHEMISTRY ?Collection Date: ?05/05/14 ? 03/10/14 ?Collection Time: ?1025 ? 1050 ? Ref Range: ?? Units: [0.60-1.30] ??MG/DL ?CREATININE ?1.08 f ? 0.99 f ?05/05/14 1025 eGFR: >70 ml/min/1.73sq.m if non -Marshallese. eGFR: >70 ml/min/1.73sq.m if -Marshallese. AVE GFR for 60-69 yr. age group: ??85 ml/min/173sq.m Calculated using MDRD Equation FOOTNOTE ADDED ON ?? 05/05/14 ?? AT 1212 BY 999 ?03/10/14 1050 eGFR: >70 ml/min/1.73sq.m if non -Marshallese. eGFR: >70 ml/min/1.73sq.m if -Marshallese. AVE GFR for 60-69 yr. age group: [...] ?? CONTINUED ?Page: ?? 4 Patient No: [id number] ? [facility] Patient Name: VILLA ALSTON ?[facility] Age: 68 YRS ?: 1945 ?Sex:M ?[address] )[phone] ?? Adm Dt: 12/11/2013 ?[place] Gonzalez ??[id number] Created: 07/06/2014 ??0240 ?? Pt. Type: D [...] ?02/10/14 1200 eGFR: >70 ml/min/1.73sq.m if non -Marshallese. eGFR: >70 ml/min/1.73sq.m if -Marshallese. AVE GFR for 60-69 yr. age group: ??85 ml/min/173sq.m Calculated using MDRD Equation FOOTNOTE ADDED ON ?? 02/10/14 ?? AT 1335 BY 999 ?01/07/14 1115 eGFR: >70 ml/min/1.73sq.m if non -Marshallese. eGFR: >70 ml/min/1.73sq.m if -Marshallese. AVE GFR for 60-69 yr. age group: [...] basic metabolic panel (03/10/2014 10:50 AM CDT) [facility] BUN 18.2 6.0 - 23.0 mg/dl HISTORICAL [...] RESULTS Comment: eGFR: >70 ml/min/1.73sq.m if non -Marshallese. eGFR: >70 ml/min/1.73sq.m if -Marshallese. AVE GFR for 60-69 yr. age group: [...] RESULTS Comment: eGFR: >70 ml/min/1.73sq.m if non -Marshallese. eGFR: >70 ml/min/1.73sq.m if -Marshallese. AVE GFR for 60-69 yr. age group: [...] RESULTS Comment: eGFR: >70 ml/min/1.73sq.m if non -Marshallese. eGFR: >70 ml/min/1.73sq.m if -Marshallese. AVE GFR for 60-69 yr. age group: [...] ORDERABLES Fin al Result Performing Organization Address [facility] de Phone Number HISTORICAL RESULTS * (ABNORMAL) [...] ORDERABLES Fin al Result Performing Organization Address City/[facility] [[email or web address]] Co de Phone Number HISTORICAL RESULTS documented in this encounter Visit Diagnoses Diagnosis Polycythemia vera (HCC) documented in this encounter Care Teams Frit Maker Relationship Specialty Start Date End Date Wesley Em MD PCP - General 10/12/12 08/31/16 documented as of this encounter
--- OUTSIDE RECORDS SUMMARY | 2024-06-18 19:21 | XMS_ITS | Encounter Summary ---
Author Organization [facility] Healthcare Address [address] [place] [address] Care Team Providers Care Lining Closer Name Role Phone Wesley Em MD Primary Care Provider [phone] Encounter Details Date Type Department Care Team (Late st Contact Info) Description 01/07/2016 8:00 AM CDT - 01/07/2016 11:59 PM CDT Hospital Encounter [facility] Hoskins, Roger Steele MD [address] [place] [phone] Polycythemia vera (CMS/HCC) Social History Tobacco Use Types Packs/Day Years Used Date Smoking Tobacco: Former Alcohol Use Standard Drinks/Week Comments No 0 (1 standard drink = 0.6 oz pur e alcohol) Sex and Gender Information Value Date Recorded Sex Assigned at Not on file Legal Sex Male 6:00 PM FRONT DESK ADMIN Gender Identity Not on file Sexual Orientation [...] (HCC) documented in this encounter Care Teams Lining Closer Relationship Specialty Start Date End Date Wesley Em MD PCP - General 10/12/12 08/31/16 documented as of this encounter
--- OUTSIDE RECORDS SUMMARY | 2024-06-18 19:21 | XMS_ITS | Encounter Summary ---
Author Organization [facility] Healthcare Address [address] [place] [address] Care Team Providers Care Word Processing Machine Operator Name Role Phone Wesley Em MD Primary Care Provider [phone] Encounter Details Date Type Department Care Team (Late st Contact Info) Description 06/11/2015 10:46 AM WELLNESS RN - 06/11/2015 11:59 PM WELLNESS RN Hospital Encounter [facility] Hoskins, Roger Steele MD [address] [place] [phone] Polycythemia vera ([facility]/HCC) Social History Tobacco Use Types Packs/Day [...] CELL COUNT (CBC) Routine 06/11/2015 10:58 AM WELLNESS RN DISCHARGE LABORATORY CUMULATIVE REPORT 06/11/2015 documented in this encounter Results * (ABNORMAL) Blood cell count (CBC) (06/11/2015 10:58 AM WELLNESS RN) WBC 6.5 3.8 - 9.8 K/cumm HISTORICAL [...] RESULTS Blood specimen (specimen) 06/11/2015 10:58 AM WELLNESS RN us Historical Provider LAB BLOOD ORDERABLES Iwona l Result HISTORICAL RESULTS * DISCHARGE LABORATORY CUMULATIVE REPORT (06/11/2015) Narrative 06/11/2015 Ordered by an unspecified provider. us Historical Provider LAB BLOOD ORDERABLES Iwona l Result documented in this encounter Visit Diagnoses Diagnosis Polycythemia vera (HCC) documented in this encounter Care Teams Word Processing Machine Operator Relationship Specialty Start Date End Date Wesley Em MD PCP - General 10/12/12 08/31/16 documented as of this encounter
--- OUTSIDE RECORDS SUMMARY | 2024-06-18 19:21 | XMS_ITS | Encounter Summary ---
Author Organization [facility] Healthcare Address [address] [place] [address] Care Team Providers Care Pier Master Assistant Name Role Phone Gene Em MD Primary Care Provider [phone] Encounter Details Date Type Department Care Team (Late st Contact Info) Description 12/17/2014 7:41 AM CDT - 12/17/2014 11:59 PM CDT Hospital Encounter [facility] Gene Lopez MD [address] [place] [phone] Dementia without behavioral disturbance (HCC) Social History Tobacco Use Types Packs/Day Years Used Date Smoking Tobacco: Former Alcohol Use Standard Drinks/Week Comments No 0 (1 standard drink = 0.6 oz pur e alcohol) Sex and Gender Information Value Date Recorded Sex Assigned at Not on file Legal 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 Acc#: ??[id number] DATE OF EXAM: ??Dec 17 2014 CLINICAL [...] Fax: ??-- Attending Fax: ??-- Attending ID: ??[id number] Requesting ID: ??[id number] Report To 1 ID: ??[id number] Report To 1 Name: ??GENE EM Report To 1 FAX: ??-- NextGen Order #: Procedure Note Provider, MD Wilian - 10/22/2016 MRI W BRAIN Acc#: [id number] DATE OF EXAM: Dec 17 2014 CLINICAL [...] Fax: -- Attending Fax: -- Attending ID: [id number] Requesting ID: [id number] Report To 1 ID: [id number] Report To 1 Name: GENE EM Report To 1 FAX: -- NextGen Order #: us Historical Provider MD CUELLAR MRI PROCEDURES Final Result documented in this encounter Visit Diagnoses Diagnosis Dementia without behavioral disturbance (HCC) documented in this encounter Care Teams Pier Master Assistant Relationship Specialty Start Date End Date Gene Em MD PCP - General 10/12/12 08/31/16 documented as of this encounter
--- OUTSIDE RECORDS SUMMARY | 2024-06-18 19:21 | XMS_ITS | Encounter Summary ---
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 2. ??[id number] THREE-VESSEL CORONARY ARTERY CALCIFICATION. 3. ??NO ENLARGED MEDIASTINAL OR HILAR NODES. 4. ??MODERATELY ECTATIC CALCIFIED AORTA AND MARKED THREE-VESSEL CORONARY ARTERY CALCIFICATION. 5. ??NO ENLARGED MEDIASTINAL NODES. 6. ??QUERY LEFT PARAPELVIC RENAL CYST. ? BILLBOARD ERECTOR HELPER: ??DM2 TRANSCRIBE DATE/TIME: ??Feb 24 2015 ??9:02P RADIOLOGIST: ??TANYA HODGE M.D. ??READ ON: ??Feb 24 2015 ??4:48P ORDERING DR: GENE EM M.D. ? THIS DOCUMENT HAS BEEN ELECTRONICALLY SIGNED BY: ??TANYA HODGE M.D. ??ON: ??Feb 26 2015 10:54A Attending: ??AARON, ??GENE Requesting: ??AARON, ??GENE Requesting Fax: ??[phone] Attending Fax: ??[phone] Attending ID: ??[id number] Requesting ID: ??[id number] Report To 1 ID: ?? Report To 1 Name: ??, ?? Report To 1 FAX: ??-- Report To 2 ID: ?? Report To 2 Name: ??, ?? Report To 2 FAX: ??-- NextGen Order #: ?? Procedure Note Provider, Historical, MD - 10/22/2016 DATE OF EXAM: Feb 24 2015 2:28PM Acc#: [id number] ECT 0363 - CT Lung Cancer Screening [...] DOSE SCREENING CT IN 12 MONTHS. 2. [id number] THREE-VESSEL CORONARY ARTERY CALCIFICATION. 3. NO ENLARGED MEDIASTINAL OR HILAR NODES. 4. MODERATELY ECTATIC CALCIFIED AORTA AND MARKED THREE-VESSEL CORONARY ARTERY CALCIFICATION. 5. NO ENLARGED MEDIASTINAL NODES. 6. QUERY LEFT PARAPELVIC RENAL CYST. BILLBOARD ERECTOR HELPER: MAY TRANSCRIBE DATE/TIME: Feb 24 2015 9:02P RADIOLOGIST: TANYA HODGE M.D. READ ON: Feb 24 2015 4:48P ORDERING DR: GENE EM M.D. THIS DOCUMENT HAS BEEN ELECTRONICALLY SIGNED BY: TANYA HODGE M.D. 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
--- OUTSIDE RECORDS SUMMARY | 2024-06-18 19:21 | XMS_ITS | Encounter Summary ---
Author Organization [facility] Healthcare Address [address] [place] [address] Care Team Providers Care Photographic Aide Name Role Phone Wesley Em MD Primary Care Provider [phone] Encounter Details Date Type Department Care Team (Late st Contact Info) Description 03/07/2014 10:15 AM CDT - 03/07/2014 11:59 PM CDT Hospital Encounter CH CLINCONV Wesley Em MD [address] [place] [id number] Type 2 or unspecified type diabetes mellitus, uncontrolled; Essential hypertension Social History Tobacco Use Types Packs/Day Years Used Date Smoking Tobacco: Former Alcohol Use Standard Drinks/Week Comments No 0 (1 standard drink = 0.6 oz pur e alcohol) Sex and Gender Information Value Date Recorded Sex Assigned at Not on file 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
--- OUTSIDE RECORDS SUMMARY | 2024-06-18 19:21 | XMS_ITS | Encounter Summary ---
Author Organization [facility] Healthcare Address [address] [place] [address] Care Team Providers Care Cash Teller Name Role Phone Gene Em MD Primary Care Provider [phone] Encounter Details Date Type Department Care Team (Late st Contact Info) Description 03/22/2016 9:32 AM CDT - 03/22/2016 11:59 PM CDT Hospital Encounter [facility] Gene Em MD [address] [place] [address] Encounter for screening for respiratory disorder; Atherosclerotic heart disease of [place] coronary artery without angina pectoris Social History Tobacco Use Types Packs/Day Years Used Date Smoking Tobacco: Former Alcohol Use Standard Drinks/Week Comments No 0 (1 standard drink = 0.6 oz pur e alcohol) Sex and Gender Information Value Date Recorded Sex Assigned at Not on file 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 3. SEVERE CORONARY CALCIFIC ATHEROSCLEROSIS. GROCERY TEAM MEMBER: ??LB3 TRANSCRIBE DATE/TIME: ??Mar 22 2016 11:00A RADIOLOGIST: ??SADA DONALDSON M.D. ??READ ON: ??Mar 22 2016 10:51A ORDERING DR: GENE EM M.D. ? THIS DOCUMENT HAS BEEN ELECTRONICALLY SIGNED BY: ??SADA DONALDSON M.D. ??ON: ??Mar 22 2016 12:28P Attending: ??AARON, ??GENE Requesting: ??AARON, ??GENE Requesting Fax: ??[phone] Attending Fax: ??[phone] Attending ID: ??[id number] Requesting ID: ??[id number] Report To 1 ID: ?? Report To 1 Name: ??, ?? Report To 1 FAX: ??-- Report To 2 ID: ?? Report To 2 Name: ??, ?? Report To 2 FAX: ??-- NextGen Order #: ?? Procedure Note Provider, MD Wilian - 10/22/2016 DATE OF EXAM: Mar 22 2016 10:07AM Acc#: [id number] ECT 0363 - CT Lung Cancer Screening [...] CHEST CT. 3. SEVERE CORONARY CALCIFIC ATHEROSCLEROSIS. GROCERY TEAM MEMBER: LB3 TRANSCRIBE DATE/TIME: Mar 22 2016 11:00A RADIOLOGIST: SADA DONALDSON M.D. READ ON: Mar 22 2016 10:51A ORDERING DR: GENE EM M.D. THIS DOCUMENT HAS BEEN ELECTRONICALLY SIGNED BY: SADA DONALDSON M.D. ON: Mar 22 2016 12:28P Attending: GENE EM Requesting: GENE EM Requesting Attending Attending ID: [id number] Requesting ID: [id number] Report To 1 ID: Report To 1 Name: , Report To 1 FAX: -- Report To 2 ID: Report To 2 Name: , Report To 2 FAX: -- NextGen Order #: us Historical Provider MD CUELLAR CT PROCEDURES Final R esult documented in this encounter Visit Diagnoses Diagnosis Encounter for screening for respiratory disorder Atherosclerotic heart disease of [place] coronary artery without angina pectoris documented in this encounter Care Teams Cash Teller Relationship Specialty Start Date End Date Gene Em MD PCP - General 10/12/12 08/31/16 documented as of this encounter
--- OUTSIDE RECORDS SUMMARY | 2024-06-18 19:21 | XMS_ITS | Encounter Summary ---
Author Organization [facility] Healthcare Address [address] [place] [address] Care Team Providers Care Accounts Payable Or Receivable Clerk Name Role Phone Gene Em MD Primary Care Provider [phone] Encounter Details Date Type Department Care Team (Late st Contact Info) Description 02/04/2015 7:25 AM CDT - 02/04/2015 11:59 PM CDT Hospital Encounter [facility] Gene Lopez MD [address] [place] [address] Cerebral artery occlusion with cerebral infarction (CMS/HCC) Social History Tobacco Use Types Packs/Day Years Used Date Smoking Tobacco: Former Alcohol Use Standard Drinks/Week Comments No 0 (1 standard drink = 0.6 oz pur e alcohol) Sex and Gender Information Value Date Recorded Sex Assigned at Not on file Legal 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 RESULT: 2D and 3D gradient echo esah-at-qljtdn magnetic resonance angiography was performed with images [...] Fax: ??-- Attending Fax: ??-- Attending ID: ??[id number] Requesting ID: ??[id number] Report To 1 ID: ??[id number] Report To 1 Name: ??GENE EM Report To 1 FAX: ??-- NextGen Order #: Procedure Note Provider, MD Wilian - 10/22/2016 MRA Carotids WO Acc#: [id number] DATE OF EXAM: Feb 04 2015 CLINICAL HISTORY: CVA. RESULT: 2D and 3D gradient echo djvf-te-wzeqre magnetic resonance angiography wasperformed with images rotated [...] Fax: -- Attending Fax: -- Attending ID: [id number] Requesting ID: [id number] Report To 1 ID: [id number] Report To 1 Name: GENE EM Report To 1 FAX: -- NextGen Order #: Historical Provider MD CUELLAR MRI PROCEDURES Final Result * MRA & MRV Head WO Contrast (02/04/2015 8:08 AM CDT) Anatomical Region Laterality Modality Head and Neck N/A Magnetic Resonan ce 02/04/2015 8:08 AM CDT Narrative 02/05/2015 11:45 AM CDT MRA Brain WO ??Acc#: ??[id number] DATE OF EXAM: ??Jan ??2014 CLINICAL HISTORY: CVA. RESULT: 3D gradient echo hdqc-ty-kgbbjf magnetic resonance angiography was performed with images [...] Fax: ??-- Attending Fax: ??-- Attending ID: ??[id number] Requesting ID: ??[id number] Report To 1 ID: ??[id number] Report To 1 Name: ??GENE EM Report To 1 FAX: ??-- NextGen Order #: Procedure Note Provider, MD Wilian - 10/22/2016 MRA Brain WO Acc#: [id number] DATE OF EXAM: Feb 04 2015 CLINICAL HISTORY: CVA. RESULT: 3D gradient echo nlrq-bh-aodlbm magnetic resonance angiography wasperformed with images rotated [...] Fax: -- Attending Fax: -- Attending ID: [id number] Requesting ID: [id number] Report To 1 ID: [id number] Report To 1 Name: GENE EM Report To 1 FAX: -- NextGen Order #: us Historical Provider MD CUELLAR MRI PROCEDURES Final Result documented in this encounter Visit Diagnoses Diagnosis Cerebral artery occlusion with cerebral infarction (HCC) Unspecified cerebral artery occlusion with cerebral infarction documented in this encounter Care Teams Accounts Payable Or Receivable Clerk Relationship Specialty Start Date End Date Gene Em MD PCP - General 10/12/12 08/31/16 documented as of this encounter
--- OUTSIDE RECORDS SUMMARY | 2024-06-18 19:21 | XMS_ITS | Encounter Summary ---
Author Organization [facility] Healthcare Address [address] [place] [address] Care Team Providers Care Eligibility Manager Name Role Phone Wesley Em MD Primary Care Provider [phone] Encounter Details Date Type Department Care Team (Late st Contact Info) Description 09/29/2014 8:00 AM CDT - 09/29/2014 11:59 PM CDT Hospital Encounter [facility] Sparkle Corrales MD [address] [place] [address] Polycythemia vera (HCC) Social History Tobacco Use Types Packs/Day Years Used Date Smoking Tobacco: Former Alcohol Use Standard Drinks/Week Comments No 0 (1 standard drink = 0.6 oz pur e alcohol) Sex and Gender Information Value Date Recorded Sex Assigned at Not on file Legal Sex Male 6:00 PM CRESTER Gender Identity Not on file Sexual Orientation [...] - 11/30/2014 2:45 AM CDT Patient No: [id number] ? [facility] Patient Name: VILLA ALSTON ?[facility] Age: 69 YRS ?: 1945 ?Sex:M ?[address] )[id number] ?? Adm Dt: 09/29/2014 ?[place], [place] ??[id number] Created: 11/30/2014 ??0245 ?? Pt. Type: D [...] (HCC) documented in this encounter Care Teams Eligibility Manager Relationship Specialty Start Date End Date Wesley Em MD PCP - General 10/12/12 08/31/16 documented as of this encounter
--- OUTSIDE RECORDS SUMMARY | 2024-06-18 19:21 | XMS_ITS | Encounter Summary ---
Author Organization [facility] Healthcare Address [address] [place] [address] Care Team Providers Care Veneer Redrier Name Role Phone Wesley Em MD Primary Care Provider [phone] Encounter Details Date Type Department Care Team (Late st Contact Info) Description 06/04/2013 1:09 PM METEOROLOGICAL EQUIPMENT REPAIRER - 09/16/2013 11:59 PM CDT Hospital Encounter [facility] Colindres, Sparkle Steele MD [address] [place] [address] Polycythemia vera (HCC) Social History Tobacco Use Types Packs/Day Years Used Date Smoking Tobacco: Former Alcohol Use Standard Drinks/Week Comments No 0 (1 standard drink = 0.6 oz pur e alcohol) Sex and Gender Information Value Date Recorded Sex Assigned at Not on file Legal Sex Male 6:00 PM METEOROLOGICAL EQUIPMENT REPAIRER Gender Identity Not on file Sexual [...] CELL COUNT (CBC) Routine 07/22/2013 11:30 AM METEOROLOGICAL EQUIPMENT REPAIRER SERUM BASIC METABOLIC PANEL Routine 06/24/2013 11:20 AM METEOROLOGICAL EQUIPMENT REPAIRER BLOOD CELL COUNT (CBC) Routine 06/24/2013 11:20 AM METEOROLOGICAL EQUIPMENT REPAIRER SERUM BASIC METABOLIC PANEL Routine 06/04/2013 1:23 PM METEOROLOGICAL EQUIPMENT REPAIRER BLOOD CELL COUNT (CBC) Routine 06/04/2013 1:23 PM METEOROLOGICAL EQUIPMENT REPAIRER documented in this encounter Results * (ABNORMAL) [...] - 11/17/2013 2:36 AM CDT Patient No: [id number] ? [facility] Patient Name: VILLA ALSTON ?[facility] Healthcare Age: 68 YRS ?: 1945 ?Sex:M ?[address] )[phone] ?? Adm Dt: 06/04/2013 ?[place], [place] ??[address] Created: 11/17/2013 ??0236 ?? Pt. Type: D [...] ?? CONTINUED ?Page: ?? 1 Patient No: [id number] ? [facility] Patient Name: VILLA ALSTON ?[facility] Healthcare Age: 68 YRS ?: 1945 ?Sex:M ?[address] )[phone] ?? Adm Dt: 06/04/2013 ?[place], [place] ??[address] Created: 11/17/2013 ??0236 ?? Pt. Type: D [...] ?? CONTINUED ?Page: ?? 2 Patient No: [id number] ? [facility] Patient Name: VILLA ALSTON ?[facility] Healthcare Age: 68 YRS ?: 1945 ?Sex:M ?[address] )[phone] ?? Adm Dt: 06/04/2013 ?[place], [place] ??[address] Created: 11/17/2013 ??0236 ?? Pt. Type: D ? Discharge Dt: 09/16/2013 ? Pathologists: Brooklyn Ortiz MD Admit DrFela Attend Dr: SPARKLE COLINDRES MD ? GENERAL CHEMISTRY ?Collection Date: ?06/24/13 ? 06/04/13 ?Collection Time: ?1120 ? 1323 ? Ref Range: ?? Units: [0.60-1.30] ??MG/DL ?CREATININE ?0.93 f ? 0.95 f ?06/24/13 1120 eGFR: >70 ml/min/1.73sq.m if non -Trinidadian. eGFR: >70 ml/min/1.73sq.m if -Trinidadian. AVE GFR for 60-69 yr. age group: ??85 ml/min/173sq.m Calculated using MDRD Equation FOOTNOTE ADDED ON ?? 06/24/13 ?? AT 1222 BY 999 ?06/04/13 1323 eGFR: >70 ml/min/1.73sq.m if non -Trinidadian. eGFR: >70 ml/min/1.73sq.m if -Trinidadian. AVE GFR for 60-69 yr. age group: ??85 ml/min/173sq.m Calculated using MDRD Equation FOOTNOTE ADDED ON ?? 06/04/13 ?? AT 1453 BY 999 Footnotes and Symbols: f = Footnote ?? END OF CHART ? Page: ?? 3 us Historical Provider LAB BLOOD ORDERABLES Iwona mackay Result HISTORICAL RESULTS * (ABNORMAL) Blood cell count (CBC) (07/22/2013 11:30 AM METEOROLOGICAL EQUIPMENT REPAIRER) WBC 5.0 4.5 - 10.6 K/cumm HISTORICAL [...] RESULTS Blood specimen (specimen) 07/22/2013 11:30 AM METEOROLOGICAL EQUIPMENT REPAIRER Sparkle Colindres MD LAB BLOOD ORDERABLES Fin al Result HISTORICAL RESULTS * (ABNORMAL) Serum basic metabolic panel (06/24/2013 11:20 AM METEOROLOGICAL EQUIPMENT REPAIRER) Pathologist [facility] BUN 17.0 6.0 - 23.0 mg/dl HISTORICAL [...] RESULTS Comment: eGFR: >70 ml/min/1.73sq.m if non -Trinidadian. eGFR: >70 ml/min/1.73sq.m if -Trinidadian. AVE GFR for 60-69 yr. age group: ??85 ml/min/173sq.m Calculated using MDRD Equation BUN/creat ratio 18 10 - 20 HIST ORICAL RESULTS A. gap 11 7 - 14 mmol/L HISTORICAL RESULTS Osmo, calc 277(L) 280 - 301 mOsm/kg HISTORICAL RESULTS Calcium 9.0 8.6 - 9.8 mg/dl HISTORICAL RESULTS Serum 06/24/2013 11:2 0 AM METEOROLOGICAL EQUIPMENT REPAIRER Sparkle Colindres MD LAB BLOOD ORDERABLES Fin al Result HISTORICAL RESULTS * (ABNORMAL) Blood cell count (CBC) (06/24/2013 11:20 AM METEOROLOGICAL EQUIPMENT REPAIRER) WBC 5.8 4.5 - 10.6 K/cumm HISTORICAL [...] RESULTS Blood specimen (specimen) 06/24/2013 11:20 AM METEOROLOGICAL EQUIPMENT REPAIRER us Sparkle Colindres MD LAB BLOOD ORDERABLES Fin al Result HISTORICAL RESULTS * Serum basic metabolic panel (06/04/2013 1:23 PM METEOROLOGICAL EQUIPMENT REPAIRER) Pathologist [facility] BUN 17.0 6.0 - 23.0 mg/dl HISTORICAL [...] RESULTS Comment: eGFR: >70 ml/min/1.73sq.m if non -Trinidadian. eGFR: >70 ml/min/1.73sq.m if -Trinidadian. AVE GFR for 60-69 yr. age group: ??85 ml/min/173sq.m Calculated using MDRD Equation BUN/creat ratio 18 10 - 20 HIST ORICAL RESULTS A. gap 12 7 - 14 mmol/L HISTORICAL RESULTS Osmo, calc 284 280 - 301 mOsm/kg HISTORICAL RESULTS Calcium 8.9 8.6 - 9.8 mg/dl HISTORICAL RESULTS Serum 06/04/2013 1:23 PM METEOROLOGICAL EQUIPMENT REPAIRER us Sparkle Colindres MD LAB BLOOD ORDERABLES Fin al Result HISTORICAL RESULTS * Blood cell count (CBC) (06/04/2013 1:23 PM METEOROLOGICAL EQUIPMENT REPAIRER) WBC 6.7 4.5 - 10.6 K/cumm HISTORICAL [...] RESULTS Blood specimen (specimen) 06/04/2013 1:23 PM METEOROLOGICAL EQUIPMENT REPAIRER us Sparkle Colindres MD LAB BLOOD ORDERABLES Fin al Result HISTORICAL RESULTS documented in this encounter Visit Diagnoses Diagnosis Polycythemia vera (HCC) documented in this encounter Care Teams Veneer Redrier Relationship Specialty Start Date End Date Wesley Em MD PCP - General 10/12/12 08/31/16 documented as of this encounter
--- OUTSIDE RECORDS SUMMARY | 2024-06-18 19:21 | XMS_ITS | Encounter Summary ---
Author Organization [facility] Healthcare Address [address] [place] [address] Care Team Providers Care Special Event Assistant Name Role Phone Wesley Em MD Primary Care Provider [phone] Encounter Details Date Type Department Care Team (Late st Contact Info) Description 07/14/2014 10:49 AM FURRIER DESIGNER - 07/14/2014 11:59 PM FURRIER DESIGNER Hospital Encounter [facility] Colindres, Sparkle Steele MD [address] [place] [address] Polycythemia vera (HCC) Social History Tobacco Use Types Packs/Day Years Used Date Smoking Tobacco: Former Alcohol Use Standard Drinks/Week Comments No 0 (1 standard drink = 0.6 oz pur e alcohol) Sex and Gender Information Value Date Recorded Sex Assigned at Not on file Legal Sex Male 6:00 PM FURRIER DESIGNER Gender Identity Not on file Sexual [...] BASIC METABOLIC PANEL Routine 07/14/2014 11:05 AM FURRIER DESIGNER BLOOD CELL COUNT (CBC) Routine 07/14/2014 11:05 AM FURRIER DESIGNER DISCHARGE LABORATORY CUMULATIVE REPORT Routine 07/14/2014 12:00 AM FURRIER DESIGNER documented in this encounter Results * (ABNORMAL) Serum basic metabolic panel (07/14/2014 11:05 AM FURRIER DESIGNER) BUN 16.0 6.0 - 23.0 mg/dl HISTORICAL [...] RESULTS Comment: eGFR: >70 ml/min/1.73sq.m if non -Maldivian. eGFR: >70 ml/min/1.73sq.m if -Maldivian. AVE GFR for 60-69 yr. age group: ??85 ml/min/173sq.m Calculated using MDRD Equation BUN/creat ratio 15 10 - 20 HIST ORICAL RESULTS A. gap 11 7 - 14 mmol/L HISTORICAL RESULTS Osmo, calc 275(L) 280 - 301 mOsm/kg HISTORICAL RESULTS Calcium 9.1 8.6 - 9.8 mg/dl HISTORICAL RESULTS Serum 07/14/2014 11:0 5 AM FURRIER DESIGNER Sparkle Colindres MD LAB BLOOD ORDERABLES Ziggy dunham Result Performing Organization Address [facility] Co de Phone Number HISTORICAL RESULTS * (ABNORMAL) Blood cell count (CBC) (07/14/2014 11:05 AM FURRIER DESIGNER) Pathologist [facility] WBC 7.0 4.5 - 10.6 K/cumm HISTORICAL [...] RESULTS Blood specimen (specimen) 07/14/2014 11:05 AM FURRIER DESIGNER Sparkle Colindres MD LAB BLOOD ORDERABLES Fin charla Result HISTORICAL RESULTS * Discharge Laboratory Cumulative Report (07/14/2014 12:00 AM FURRIER DESIGNER) 07/14/2014 Narrative HISTORICAL RESULTS - 09/14/2014 2:43 AM CDT Patient No: [id number] ? [facility] Patient Name: VILLA ALSTON ?[facility] Healthcare Age: 68 YRS ?: 1945 ?Sex:M ?[address] )[phone] ?? Adm Dt: 07/14/2014 ?[place], [place] ??[id number] Created: 09/14/2014 ??0243 ?? Pt. Type: D [...] ?? CONTINUED ?Page: ?? 1 Patient No: [id number] ? [facility] Patient Name: VILLA ALSTON ?[facility] Age: 68 YRS ?: 1945 ?Sex:M ?[address] )[phone] ?? Adm Dt: 07/14/2014 ?[place], [place] ??[id number] Created: 09/14/2014 ??0243 ?? Pt. Type: D [...] f ?07/14/145 eGFR: >70 ml/min/1.73sq.m if non -Maldivian. eGFR: >70 ml/min/1.73sq.m if -Maldivian. AVE GFR for 60-69 yr. age group: [...] (HCC) documented in this encounter Care Teams Special Event Assistant Relationship Specialty Start Date End Date Wesley Em MD PCP - General 10/12/12 08/31/16 documented as of this encounter
--- OUTSIDE RECORDS SUMMARY | 2024-06-18 19:21 | XMS_ITS | Encounter Summary ---
Author Organization [facility] Healthcare Address [address] [place] [address] Care Team Providers Care Heavy Duty Mechanic Farm Equipment Name Role Phone Wesley Em MD Primary Care Provider [phone] Encounter Details Date Type Department Care Team (Late st Contact Info) Description 09/04/2014 7:32 AM DIRECTOR SALES SUPPORT - 09/04/2014 11:59 PM [facility] Hospital Encounter [facility] CLINCONV Wesley Em MD [address] [place] [address] Type 2 or unspecified type diabetes mellitus; [...] prostate documented in this encounter Care Teams Heavy Duty Mechanic Farm Equipment Relationship Specialty Start Date End Date Wesley Em MD PCP - General 10/12/12 08/31/16 documented as of this encounter
--- OUTSIDE RECORDS SUMMARY | 2024-06-18 19:21 | XMS_ITS | Encounter Summary ---
Author Organization [facility] Healthcare Address [address] [place] [address] Care Team Providers Care Clay Stain Mixer Name Role Phone Gene Em MD Primary Care Provider [phone] Encounter Details Date Type Department Care Team (Late st Contact Info) Description 03/22/2013 9:59 AM CDT - 03/22/2013 11:59 PM CDT Hospital Encounter [facility] Gene Lopez MD [address] [place] [address] Personal history of tobacco use, presenting hazards to health Social History Tobacco Use Types Packs/Day Years Used Date Smoking Tobacco: Former Alcohol Use Standard Drinks/Week Comments No 0 (1 standard drink = 0.6 oz pur e alcohol) Sex and Gender Information Value Date Recorded Sex Assigned at Not on file Legal Sex Male 6:00 PM ELECTRICIAN SUPERVISOR AIRPLANE Gender Identity Not on file Sexual Orientation [...] 03/22/2013 12:22 PM CDT [facility] ??Acc#: ??[id number] DATE OF EXAM: ??Mar 22 2013 CLINICAL [...] MD Wilian - 10/22/2016 [facility] Acc#: [id number] DATE OF EXAM: Mar 22 2013 CLINICAL [...] health documented in this encounter Care Teams Clay Stain Mixer Relationship Specialty Start Date End Date Gene Em MD PCP - General 10/12/12 08/31/16 documented as of this encounter
--- OUTSIDE RECORDS SUMMARY | 2024-06-18 19:21 | XMS_ITS | Encounter Summary ---
Author Organization [facility] Healthcare Address [address] [place] [address] Care Team Providers Care Body Specialist Name Role Phone Wesley Em MD Primary Care Provider [phone] Encounter Details Date Type Department Care Team (Late st Contact Info) Description 12/08/2014 10:00 AM CDT - 12/08/2014 11:59 PM CDT Hospital Encounter [facility] Sparkle Corrales MD [address] [place] [address] Polycythemia vera (HCC) Social History Tobacco Use Types Packs/Day Years Used Date Smoking Tobacco: Former Alcohol Use Standard Drinks/Week Comments No 0 (1 standard drink = 0.6 oz pur e alcohol) Sex and Gender Information Value Date Recorded Sex Assigned at Not on file Legal 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 eGFR: >70 ml/min/1.73sq.m if -Citizen Of [place]. AVE GFR for 60-69 yr. age group: [...] ORDERABLES Ziggy dunham Result Performing Organization Address [facility] Co de Phone Number HISTORICAL RESULTS * (ABNORMAL) Blood cell count (CBC) (12/08/2014 10:20 AM CDT) Pathologist [facility] WBC 6.7 4.5 - 10.6 K/cumm HISTORICAL [...] - 02/08/2015 2:49 AM CDT Patient No: [id number] ? [facility] Patient Name: VILLA ALSTON ?[facility] Healthcare Age: 69 YRS ?: 1945 ?Sex:M ?[address] )[phone] ?? Adm Dt: 12/08/2014 ?[place] ??[address] Created: 02/08/2015 ??0249 ?? Pt. Type: D [...] ?? CONTINUED ?Page: ?? 1 Patient No: [id number] ? [facility] Patient Name: VILLA ALSTON ?[facility] Age: 69 YRS ?: 1945 ?Sex:M ?[address] )[id number] ?? Adm Dt: 12/08/2014 ?[place] ??[id number] Created: 02/08/2015 ??0249 ?? Pt. Type: D [...] ?12/08/14 1020 eGFR: >70 ml/min/1.73sq.m if non -Citizen Of [place]. eGFR: >70 ml/min/1.73sq.m if -Citizen Of [place]. AVE GFR for 60-69 yr. age group: [...] (HCC) documented in this encounter Care Teams Body Specialist Relationship Specialty Start Date End Date Wesley Em MD PCP - General 10/12/12 08/31/16 documented as of this encounter
--- OUTSIDE RECORDS SUMMARY | 2024-06-18 19:21 | XMS_ITS | Encounter Summary ---
Author Organization [facility] Healthcare Address [address] [place] [address] Care Team Providers Care Shading Painter Name Role Phone Wesley Em MD Primary Care Provider [phone] Encounter Details Date Type Department Care Team (Late st Contact Info) Description 09/30/2015 12:53 PM CDT - 09/30/2015 11:59 PM CDT Hospital Encounter CH CLINCONV Wesley Em MD [address] [place] [address] Disorder of prostate Social History Tobacco Use Types Packs/Day Years Used Date Smoking Tobacco: Former Alcohol Use Standard Drinks/Week Comments No 0 (1 standard drink = 0.6 oz pur e alcohol) Sex and Gender Information Value Date Recorded Sex Assigned at Not on file Legal Sex Male 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 Rec#: ?? [id number] ?Pt. Acct.#: ??[id number] ?Birthdate: ?? 1945 ?Age / Sex: ?? [...] prostate documented in this encounter Care Teams Shading Painter Relationship Specialty Start Date End Date Wesley Em MD PCP - General 10/12/12 08/31/16 documented as of this encounter
--- OUTSIDE RECORDS SUMMARY | 2024-06-18 19:21 | XMS_ITS | Encounter Summary ---
Author Organization [facility] Healthcare Address [address] [place] [address] Care Team Providers Care Presentation Manager Name Role Phone Wesley Em MD Primary Care Provider Encounter Details Date Type Department Care Team (Late st Contact Info) Description 03/11/2015 9:51 AM CDT - 03/11/2015 11:59 PM CDT Hospital Encounter [facility] Hoskins, Roger Steele MD [address] [place] [address] Polycythemia vera (CMS/HCC) Social History Tobacco Use Types Packs/Day Years Used Date Smoking Tobacco: Former Alcohol Use Standard Drinks/Week Comments No 0 (1 standard drink = 0.6 oz pur e alcohol) Sex and Gender Information Value Date Recorded Sex Assigned at Not on file 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
--- OUTSIDE RECORDS SUMMARY | 2024-06-18 19:21 | XMS_ITS | Encounter Summary ---
Author Organization [facility] Healthcare Address [address] [place] [address] Care Team Providers Care Casualty Underwriter Name Role Phone Wesley Em MD Primary Care Provider [phone] Encounter Details Date Type Department Care Team (Late st Contact Info) Description 03/11/2016 7:08 AM CDT - 03/11/2016 11:59 PM CDT Hospital Encounter CH CLINCONV Wesley Em MD [address] [place] [address] Type 2 diabetes mellitus without complications (CMS/[facility]) Social History Tobacco Use Types Packs/Day Years Used Date Smoking Tobacco: Former Alcohol Use Standard Drinks/Week Comments No 0 (1 standard drink = 0.6 oz pur e alcohol) Sex and Gender Information Value Date Recorded Sex Assigned at Not on file Legal Sex Male 6:00 PM PRESCRIPTION CLERK LENSES Gender Identity Not on file Sexual Orientation [...] (HCC) documented in this encounter Care Teams Casualty Underwriter Relationship Specialty Start Date End Date Wesley Em MD PCP - General 10/12/12 08/31/16 documented as of this encounter
--- OUTSIDE RECORDS SUMMARY | 2024-06-18 19:21 | XMS_ITS | Encounter Summary ---
Author Organization [facility] Healthcare Address [address] [place] [address] Care Team Providers Care Educational Technology Coordinator Name Role Phone Wesley Em MD Primary Care Provider Encounter Details Date Type Department Care Team (Late st Contact Info) Description 12/16/2014 2:54 PM CDT - 12/16/2014 11:59 PM CDT Hospital Encounter [facility] Wesley Em MD [address] [place] [address] Essential hypertension; Dementia without behavioral disturbance (HCC) Social History Tobacco Use Types Packs/Day Years Used Date Smoking Tobacco: Former Alcohol Use Standard Drinks/Week Comments No 0 (1 standard drink = 0.6 oz pur e alcohol) Sex and Gender Information Value Date Recorded Sex Assigned at Not on file Legal 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
--- OUTSIDE RECORDS SUMMARY | 2024-06-18 19:21 | XMS_ITS | Encounter Summary ---
Author Organization [facility] Healthcare Address [address] [place] [address] Care Team Providers Care Flatware Maker Name Role Phone Wesley Em MD Primary Care Provider [phone] Encounter Details Date Type Department Care Team (Late st Contact Info) Description 09/08/2014 2:31 PM CDT - 09/08/2014 11:59 PM CDT Hospital Encounter [facility]IN[facility] Wesley Em MD [address] [place] [address] Microscopic hematuria Social History Tobacco Use Types Packs/Day Years Used Date Smoking Tobacco: Former Alcohol Use Standard Drinks/Week Comments No 0 (1 standard drink = 0.6 oz pur e alcohol) Sex and Gender Information Value Date Recorded Sex Assigned at Not on file Legal Sex Male 6:[address] REGISTRY OFFICER Gender Identity Not on file Sexual [...] HISTORICAL RESULTS - 09/12/2014 4:50 PM CDT [facility] ?Patient Name: ?VILLA ALSTON SR J ?Med. Rec#: ?? [id number] ?Pt. Acct.#: ??[id number] ?Birthdate: ?? 1945 ?Age / Sex: ?? [...] hematuria documented in this encounter Care Teams Flatware Maker Relationship Specialty Start Date End Date Wesley mE MD PCP - General 10/12/12 08/31/16 documented as of this encounter
--- OUTSIDE RECORDS SUMMARY | 2024-06-18 19:22 | XMS_ITS | Encounter Summary ---
Author Organization [facility] Healthcare Address [address] [place] [address] Care Team Providers Care Bioprocess Engineer Name Role Phone Wesley Em MD Primary Care Provider [phone] Encounter Details Date Type Department Care Team (Late st Contact Info) Description 03/05/2013 8:00 AM CDT - 03/05/2013 11:59 PM CDT Hospital Encounter [facility] Sparkle Corrales MD [address] [place] [address] Polycythemia vera (HCC) Social History Tobacco Use Types Packs/Day Years Used Date Smoking Tobacco: Former Alcohol Use Standard Drinks/Week Comments No 0 (1 standard drink = 0.6 oz pur e alcohol) Sex and Gender Information Value Date Recorded Sex Assigned at Not on file 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 eGFR: >70 ml/min/1.73sq.m if -Taiwanese. AVE GFR for 60-69 yr. age group: [...] ORDERABLES Fin al Result Performing Organization Address [facility]/State/ZIP Co de Phone Number HISTORICAL RESULTS * Discharge Laboratory Cumulative Report (03/05/2013 12:00 AM CDT) 03/05/2013 Narrative HISTORICAL RESULTS - 05/05/2013 1:27 AM CDT Patient No: [id number] ? [facility] Patient Name: VILLA ALSTON ?[facility] Healthcare Age: 67 YRS ?: 1945 ?Sex:M ?[address] )[id number] ?? Adm Dt: 03/05/2013 ?[place] ??[id number] Created: 05/05/2013 ??0127 ?? Pt. Type: D [...] ?? CONTINUED ?Page: ?? 1 Patient No: [id number] ? [facility] Patient Name: VILLA ALSTON ?[facility] Age: 67 YRS ?: 1945 ?Sex:M ?[address] )[id number] ?? Adm Dt: 03/05/2013 ?[place], [place] ??[id number] Created: 05/05/2013 ??0127 ?? Pt. Type: D ? Discharge Dt: 03/05/2013 ? Pathologists: Brooklyn Ortzi MD Admit Dr. Gary Aguilera: SPARKLE COLINDRES MD ? GENERAL CHEMISTRY ?Collection Date: ?03/05/13 ?Collection Time: ?1320 ? Ref Range: ?? Units: ??[10-20] ? B/C RATIO ? 20 [0.60-1.30] ??MG/DL ?CREATININE ?0.95 f ?03/05/13 1320 eGFR: >70 ml/min/1.73sq.m if non -Taiwanese. eGFR: >70 ml/min/1.73sq.m if -Taiwanese. AVE GFR for 60-69 yr. age group: [...] (HCC) documented in this encounter Care Teams Bioprocess Engineer Relationship Specialty Start Date End Date Wesley Em MD PCP - General 10/12/12 08/31/16 documented as of this encounter
--- OUTSIDE RECORDS SUMMARY | 2024-06-18 19:22 | XMS_ITS | Encounter Summary ---
Author Organization [facility] Healthcare Address [address] [place] [address] Care Team Providers Care Weigher And Crusher Name Role Phone Wesley Em MD Primary Care Provider [phone] Encounter Details Date Type Department Care Team (Late st Contact Info) Description 12/01/2010 12:39 PM CDT - 12/01/2010 11:59 PM CDT Hospital Encounter [facility] CLINCONWesley Vergara MD [address] [place] [address] Dietary counseling and surveillance; Type 2 or unspecified type diabetes mellitus, uncontrolled; Essential hypertension Social History Tobacco Use Types Packs/Day Years Used Date Smoking Tobacco: Never Assessed Sex and Gender Information Value Date Recorded Sex Assigned at Not on file Legal Sex Male 6: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
--- OUTSIDE RECORDS SUMMARY | 2024-06-18 19:22 | XMS_ITS | Encounter Summary ---
Author Organization [facility] Care Team Providers Care Visual Associate Name Role Phone Wesley Em MD Primary Care Provider [phone] Encounter Details Date Type Department Care Team (Latest Contact Info) Description 10/13/2010 10:15 AM CDT - 10/16/2010 2:00 PM CDT Hospital Encounter [facility] CLINCONV Wesley Pyle Jr., MD [address] [facility] [address] [place] [address] Osteoarthrosis involving lower leg; Essential hypertension; Other [...] health documented in this encounter Care Teams Visual Associate Relationship Specialty Start Date End Date Wesley Em MD PCP - General 03/11/08 10/11/12 documented as of this encounter
--- OUTSIDE RECORDS SUMMARY | 2024-06-18 19:22 | XMS_ITS | Encounter Summary ---
Author Organization [facility] Healthcare Address [address] [place] [address] Care Team Providers Care Rail Bonder Name Role Phone Wesley Em MD Primary Care Provider [phone] Encounter Details Date Type Department Care Team (Latest Contact Info) Description 09/03/2012 11:25 AM OPERATIONS TECH - 09/03/2012 11:59 PM OPERATIONS TECH Hospital [place] [address] [place] [address] Pre-operative cardiovascular examination; Abnormal electrocardiogram; Other chest pain Social History Tobacco Use Types Packs/Day Years Used Date Smoking Tobacco: Former Alcohol Use Standard Drinks/Week Comments No 0 (1 standard drink = 0.6 oz pur e alcohol) Sex and Gender Information Value Date Recorded Sex Assigned at Not on file Legal Sex Male 6:00 PM OPERATIONS TECH Gender Identity Not on file Sexual [...] BASIC METABOLIC PANEL Routine 09/03/2012 11:35 AM OPERATIONS TECH PLASMA PROTHROMBIN TIME (PT) Routine 09/03/2012 11:35 AM OPERATIONS TECH BLOOD WBC CELL MORPHOLOGIC EXAM, AUTO Routine 09/03/2012 11:35 AM OPERATIONS TECH BLOOD CELL COUNT (CBC) Routine 09/03/2012 11:35 AM OPERATIONS TECH DISCHARGE LABORATORY CUMULATIVE REPORT Routine 09/03/2012 12:00 AM OPERATIONS TECH documented in this encounter Results * Plasma prothrombin time (PT) (09/03/2012 11:35 AM OPERATIONS TECH) [facility] Prothrombin time (PT) 13.8 11.4 - [...] Administration recommendations. Plasma 09/03/2012 11:3 5 AM OPERATIONS TECH Garth Millan MD LAB BLOOD ORDERABLES Final Resul t Performing Organization Address [facility] Phone Number HISTORICAL RESULTS * (ABNORMAL) Serum basic metabolic panel (09/03/2012 11:35 AM OPERATIONS TECH) BUN 18.0 6.0 - 23.0 mg/dl HISTORICAL RESULTS Comment: BUN ? CORRECTED FROM ? 18.0 ON 09/03/12 AT 1425 BY [id number] FAXED TO [id number] 09/03/12 14:25 [id number] Sodium 136 134 - 143 mmol/L HISTORICAL RESULTS Potassium, sr 4.0 3.4 - 5.0 mmol/L HISTORICAL RESULTS Chloride 97(L) 99 - 108 mmol/L HISTORICAL RESULTS CO2 32 23 - 32 mmol/L HISTORICAL RESULTS Glucose, fasting 344(H) 70 - 110 mg/dl HISTORICAL RESULTS Creatinine 1.04 0.60 - 1.30 mg/dl HISTORICAL RESULTS Comment: eGFR: >70 ml/min/1.73sq.m if non -English. eGFR: >70 ml/min/1.73sq.m if -English. AVE GFR for 60-69 yr. age group: ??85 ml/min/173sq.m Calculated using MDRD Equation BUN/creat ratio 17 10 - 20 HIST ORICAL RESULTS A. gap 11 7 - 14 mmol/L HISTORICAL RESULTS Osmo, calc 287 280 - 301 mOsm/kg HISTORICAL RESULTS Calcium 9.1 8.6 - 9.8 mg/dl HISTORICAL RESULTS Serum 09/03/2012 11:3 5 AM OPERATIONS TECH us Garth Millan MD LAB BLOOD ORDERABLES Final Resul t Performing Organization Address [facility] Co de Phone Number HISTORICAL RESULTS * Blood cell count (CBC) (09/03/2012 11:35 AM OPERATIONS TECH) WBC 5.2 4.0 - 10.5 K/cumm HISTORICAL [...] RESULTS Blood specimen (specimen) 09/03/2012 11:35 AM OPERATIONS TECH Gatrh Millan MD LAB BLOOD ORDERABLES Final Resul t HISTORICAL RESULTS * (ABNORMAL) Blood WBC cell morphologic exam, auto (09/03/2012 11:35 AM OPERATIONS TECH) Pathologist [facility] Lymphocytes 29.8 25.0 - 33.0 % HISTORICAL [...] RESULTS Blood specimen (specimen) 09/03/2012 11:35 AM OPERATIONS TECH us Garth Millan MD LAB BLOOD ORDERABLES Final Resul t HISTORICAL RESULTS * Discharge Laboratory Cumulative Report (09/03/2012 12:00 AM OPERATIONS TECH) 09/03/2012 Narrative HISTORICAL RESULTS - 09/05/2012 12:23 AM OPERATIONS TECH Patient No: [id number] ? [facility] Patient Name: VILLA ALSTON ?[facility] Age: 66 YRS ?: 1945 ?Sex:M ?[address] )[id number] ?? Adm Dt: 09/03/2012 ?[place], [place] ??[address] Created: 09/05/2012 ??0023 ?? Pt. Type: R [...] ?? CONTINUED ?Page: ?? 1 Patient No: [id number] ? [facility] Patient Name: VILLA ALSTON ?[facility] Age: 66 YRS ?: 1945 ?Sex:M ?[address] )[id number] ?? Adm Dt: 09/03/2012 ?[place] ??[id number] Created: 09/05/2012 ??0023 ?? Pt. Type: R [...] ? 18.0 f ?09/03/12 1135 FAXED TO [id number] 09/03/12 14:25 [id number] FOOTNOTE ADDED ON ?? 09/03/12 ?? AT 1425 BY [id number] ??[10-20] ? B/C RATIO ? 17 [0.60-1.30] ??MG/DL ?CREATININE ?1.04 f ?09/03/12 1135 eGFR: >70 ml/min/1.73sq.m if non -English. eGFR: >70 ml/min/1.73sq.m if -English. AVE GFR for 60-69 yr. age group: ??85 ml/min/173sq.m Calculated using MDRD Equation FOOTNOTE ADDED ON ?? 09/03/12 ?? AT 1245 BY 999 Footnotes and Symbols: L = Low, H = High, f = Footnote ?? CONTINUED ?Page: ?? 2 Patient No: [id number] ? [facility] Patient Name: VILLA ALSTON ?[facility] Age: 66 YRS ?: 1945 ?Sex:M ?[address] )[id number] ?? Adm Dt: 09/03/2012 ?[place] ??[address] Created: 09/05/2012 ??0023 ?? Pt. Type: R [...] pain documented in this encounter Care Teams Rail Bonder Relationship Specialty Start Date End Date Wesley Em MD PCP - General 03/11/08 10/11/12 documented as of this encounter
--- OUTSIDE RECORDS SUMMARY | 2024-06-18 19:22 | XMS_ITS | Encounter Summary ---
Author Organization [facility] Healthcare Address [address] [place] [address] Care Team Providers Care Body Masker Name Role Phone Wesley Em MD Primary Care Provider Encounter Details Date Type Department Care Team (Late st Contact Info) Description 03/22/2007 1:52 AM CDT - 03/22/2007 4:05 AM CDT Hospital Encounter [facility] Jose Brooks MD [address] [facility] [place] [address] Wesley Em MD [address] [place] [address], [place] [address] Social History Tobacco Use Types Packs/Day Years Used Date Smoking Tobacco: Never Assessed Sex and Gender Information Value Date Recorded Sex Assigned at Not on file Legal Sex Male 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
--- OUTSIDE RECORDS SUMMARY | 2024-06-18 19:22 | XMS_ITS | Encounter Summary ---
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 Hospital Encounter [facility]IN[facility] Wesley Em MD [address] [place] [address] Social History Tobacco Use Types Packs/Day Years Used Date Smoking Tobacco: Never Assessed Sex and Gender Information Value Date Recorded Sex Assigned at Not on file Legal Sex Male 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
--- OUTSIDE RECORDS SUMMARY | 2024-06-18 19:22 | XMS_ITS | Encounter Summary ---
Author Organization [facility] Healthcare Address [address] [place] [address] Care Team Providers Care Level Vial Inspector And Tester Name Role Phone Gene Em MD Primary Care Provider [phone] Encounter Details Date Type Department Care Team (Late st Contact Info) Description 08/17/2012 8:47 AM SUPERVISOR MAJOR APPLIANCE ASSEMBLY - 08/17/2012 11:59 PM [facility] Hospital Encounter [facility] CLINCON[facility] Gene Em MD [address] [place] [address] Chest pain; Other specified circulatory system disorders Social History Tobacco Use Types Packs/Day Years Used Date Smoking Tobacco: Former Alcohol Use Standard Drinks/Week Comments No 0 (1 standard drink = 0.6 oz pur e alcohol) Sex and Gender Information Value Date Recorded Sex Assigned at Not on file Legal Sex Male 6:00 PM SUPERVISOR MAJOR APPLIANCE ASSEMBLY Gender Identity Not on file Sexual [...] STRESS) MULTIPLE STUDIES Routine 08/17/2012 1:43 PM SUPERVISOR MAJOR APPLIANCE ASSEMBLY STRESS ECHO EXERCISE W DOPPLER/CF WO CONTRAST Routine 08/17/2012 9:38 AM SUPERVISOR MAJOR APPLIANCE ASSEMBLY STRESS ECHOCARDIOGRAPHY Routine 08/17/19 13 12:00 AM SUPERVISOR MAJOR APPLIANCE ASSEMBLY documented in this encounter Results * NM MPI Spect (Rest And Stress) Multiple Studies (08/17/2012 1:43 PM SUPERVISOR MAJOR APPLIANCE ASSEMBLY) Anatomical Region Laterality Modality Body N/A Nuclear Medicine 08/17/2012 1:43 PM SUPERVISOR MAJOR APPLIANCE ASSEMBLY Narrative 08/17/2012 3:41 PM SUPERVISOR MAJOR APPLIANCE ASSEMBLY DATE OF EXAM: ??Aug 17 2012 ??1:43PM Acc#: ??[id number] ??ENM 0067 - NM Myocard Perf Rest/Stress [...] with Dr. Em at 1425 on 08/17/12. TERRITORY MANAGER: ??DM2 TRANSCRIBE DATE/TIME: ??Aug 17 2012 ??3:29P RADIOLOGIST: ??AUSTIN TURNER M.D. ??READ ON: ??Aug 17 2012 ??2:13P ORDERING DR: GENE EM M.D. THIS DOCUMENT HAS BEEN ELECTRONICALLY SIGNED BY: ??AUSTIN TURNER M.D. ??ON: ??Aug 17 2012 ??3:41P Procedure Note Provider, Historical, - 10/22/2016 DATE OF EXAM: Aug 17 2012 1:43PM Acc#: [id number] [facility] 0067 - NM Myocard Perf Rest/Stress Phar [...] with Dr. Em at 1425 on 08/17/12. TERRITORY MANAGER: DM2 TRANSCRIBE DATE/TIME: Aug 17 2012 3:29P RADIOLOGIST: AUSTIN TURNER M.D. READ ON: Aug 17 2012 2:13P ORDERING DR: GENE EM M.D. THIS DOCUMENT HAS BEEN ELECTRONICALLY SIGNED BY: AUSTIN TURNER M.D. ON: Aug 17 2012 3:41P Historical Provider MD ALISA SARMIENTO PROCEDURES Final R esult * Stress Echo Exercise W Doppler/CF WO Contrast (08/17/2012 9:38 AM SUPERVISOR MAJOR APPLIANCE ASSEMBLY) Anatomical Region Laterality Modality Echocardiography 08/17/2012 9:38 AM SUPERVISOR MAJOR APPLIANCE ASSEMBLY us Historical Provider CV ECHO PROCEDURES Final Result * STRESS ECHOCARDIOGRAPHY (08/17/2012 12:00 AM SUPERVISOR MAJOR APPLIANCE ASSEMBLY) Anatomical Region Laterality Modality N/A Nuclear Medicine 08/17/2012 Narrative 08/17/2012 1:02 PM SUPERVISOR MAJOR APPLIANCE ASSEMBLY ?CARDIOLOGY GRAPHICS Patient: ?? VILLA ALSTON Account: ?? [id number] ? : ? 1945 Room No: ?Age: [...] by: Simon Drummond M.D. EMILI/eliceo Job #: ??[id number] DD: ??08/17/2012 12:22 TD: ??08/17/2012 13:02 Procedure Note Provider, MD Wilian - 11/01/2016 CARDIOLOGY GRAPHICS Patient: VILLA ALSTON Account: [id number] :1945 Room No: Age: 66 Attending: Gene [...] disorders documented in this encounter Care Teams Level Vial Inspector And Tester Relationship Specialty Start Date End Date Gene Em MD PCP - General 03/11/08 10/11/12 documented as of this encounter
--- OUTSIDE RECORDS SUMMARY | 2024-06-18 19:22 | XMS_ITS | Encounter Summary ---
Author Organization [facility] Healthcare Address [address] [place] [address] Care Team Providers Care Compressor Operator Portable Name Role Phone Wesley Em MD Primary Care Provider Encounter Details Date Type Department Care Team (Late st Contact Info) Description 05/02/2007 12:01 AM CDT - 05/02/2007 11:59 PM CDT Hospital Encounter [facility] Wesley Em MD [address] [place] [address] Social History Tobacco Use Types Packs/Day Years Used Date Smoking Tobacco: Never Assessed Sex and Gender Information Value Date Recorded Sex Assigned at Not on file Legal Sex Male 6:00 PM REINFORCER Gender Identity Not on file Sexual Orientation Straight 01/23/2021 10 :16 PM CDT documented as of this encounter Plan of Treatment Not on file documented as of this encounter Visit Diagnoses Not on filedocumented in this encounter Care Teams Compressor Operator Portable Relationship Specialty Start Date End Date Wesley Em MD PCP - General 04/24/07 03/10/08 documented as of this encounter
--- OUTSIDE RECORDS SUMMARY | 2024-06-18 19:22 | XMS_ITS | Encounter Summary ---
Author Organization [facility] Healthcare Address [address] [place] [address] Care Team Providers Care Hand Cutter Apprentice Name Role Phone Wesley Em MD Primary Care Provider Encounter Details Date Type Department Care Team (Late st Contact Info) Description 07/05/2010 12:01 AM COSTUME DESIGNER - 07/05/2010 11:[address] [facility] Hospital Encounter [facility] CLINCONV Wesley Em MD [address] [place] [address] Chronic sinusitis Social History Tobacco Use Types Packs/Day Years Used Date Smoking Tobacco: Never Assessed Sex and Gender Information Value Date Recorded Sex Assigned at Not on file Legal Sex Male 6:00 PM COSTUME DESIGNER Gender Identity Not on file Sexual [...] (chronic) documented in this encounter Care Teams Hand Cutter Apprentice Relationship Specialty Start Date End Date Wesley Em MD PCP - General 03/11/08 10/11/12 documented as of this encounter
--- OUTSIDE RECORDS SUMMARY | 2024-06-18 19:22 | XMS_ITS | Encounter Summary ---
Author Organization [facility] Healthcare Address [address] [place] [address] Care Team Providers Care Spectral Scientist Name Role Phone Wesley Em MD Primary Care Provider [phone] Encounter Details Date Type Department Care Team (Late st Contact Info) Description 11/07/2010 11:27 PM CDT - 11/08/2010 4:48 AM CDT Hospital Encounter [facility] Jose Brooks MD [address] [facility] [address] [facility] 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
--- OUTSIDE RECORDS SUMMARY | 2024-06-18 19:22 | XMS_ITS | Encounter Summary ---
Author Organization [facility] Healthcare Address [address] [place] [address] Care Team Providers Care Brand Specialist Name Role Phone Wesley Em MD Primary Care Provider [phone] Wesley Em MD Primary Care Provider [phone] Encounter Details Date Type Department Care Team (Late st Contact Info) Description 08/02/2012 2:31 PM DOCUMENT PROCESSING SPECIALIST - 01/02/2013 11:59 PM CDT Hospital Encounter [facility] Colindres, Sparkle Steele MD [address] [place] [address] Polycythemia vera (HCC) Social History Tobacco Use Types Packs/Day Years Used Date Smoking Tobacco: Former Alcohol Use Standard Drinks/Week Comments No 0 (1 standard drink = 0.6 oz pur e alcohol) Sex and Gender Information Value Date Recorded Sex Assigned at Not on file Legal Sex Male 6:00 PM DOCUMENT PROCESSING SPECIALIST Gender Identity Not on file Sexual [...] CELL COUNT (CBC) Routine 3 2:38 PM DOCUMENT PROCESSING SPECIALIST BLOOD CELL COUNT (CBC) Routine 3 7:53 AM DOCUMENT PROCESSING SPECIALIST BLOOD CELL COUNT (CBC) Routine 3 10:34 AM DOCUMENT PROCESSING SPECIALIST BLOOD CELL COUNT (CBC) Routine 3 9:53 AM DOCUMENT PROCESSING SPECIALIST BLOOD CELL COUNT (CBC) Routine 3 1:59 PM DOCUMENT PROCESSING SPECIALIST SERUM COMPREHENSIVE METABOLIC PANEL Routine 08/02/2012 3:00 PM DOCUMENT PROCESSING SPECIALIST BLOOD WBC CELL MORPHOLOGIC EXAM, AUTO Routine 08/02/2012 3:00 PM DOCUMENT PROCESSING SPECIALIST BLOOD CELL COUNT (CBC) Routine 3 3:00 PM DOCUMENT PROCESSING SPECIALIST REFERRED TEST, MISCELLANEOUS Routine 08/02/2012 9:00 AM DOCUMENT PROCESSING SPECIALIST documented in this encounter Results * Blood [...] - 03/04/2013 12:26 AM CDT Patient No: [id number] ? [facility] Patient Name: VILLA ALSTON ?[facility] Age: 67 YRS ?: 1945 ?Sex:M ?[address] )[id number] ?? Adm Dt: 08/02/2012 ?[place], [place] ??[address] Created: 03/04/2013 ??0026 ?? Pt. Type: D [...] ?? CONTINUED ?Page: ?? 1 Patient No: [id number] ? [facility] Patient Name: VILLA ALSTON ?[facility] Age: 67 YRS ?: 1945 ?Sex:M ?[address] )[phone] ?? Adm Dt: 08/02/2012 ?[place], [place] ??[address] Created: 03/04/2013 ??0026 ?? Pt. Type: D [...] ?? CONTINUED ?Page: ?? 2 Patient No: [id number] ? [facility] Patient Name: VILLA ALSTON ?[facility] Age: 67 YRS ?: 1945 ?Sex:M ?[address] )[id number] ?? Adm Dt: 08/02/2012 ?[place] ??[id number] Created: 03/04/2013 ??0026 ?? Pt. Type: D [...] ?? CONTINUED ?Page: ?? 3 Patient No: [id number] ? [facility] Patient Name: VILLA ALSTON ?[facility] Age: 67 YRS ?: 1945 ?Sex:M ?[address] )[id number] ?? Adm Dt: 08/02/2012 ?[place], [place] ??[address] Created: 03/04/2013 ??0026 ?? Pt. Type: D [...] ?? CONTINUED ?Page: ?? 4 Patient No: [id number] ? [facility] Patient Name: VILLA ALSTON ?[facility] Age: 67 YRS ?: 1945 ?Sex:M ?[address] )[id number] ?? Adm Dt: 08/02/2012 ?[place] ??[address] Created: 03/04/2013 ??0026 ?? Pt. Type: D [...] ?? CONTINUED ?Page: ?? 5 Patient No: [id number] ? [facility] Patient Name: VILLA ALSTON ?[facility] Age: 67 YRS ?: 1945 ?Sex:M ?[address] )[id number] ?? Adm Dt: 08/02/2012 ?[place] ??[id number] Created: 03/04/2013 ??0026 ?? Pt. Type: D [...] ?? CONTINUED ?Page: ?? 6 Patient No: [id number] ? [facility] Patient Name: VILLA ALSTON ?[facility] Age: 67 YRS ?: 1945 ?Sex:M ?[address] )[id number] ?? Adm Dt: 08/02/2012 ?[place], [place] ??[address] Created: 03/04/2013 ??0026 ?? Pt. Type: D [...] ?? CONTINUED ?Page: ?? 7 Patient No: [id number] ? [facility] Patient Name: VILLA ALSTON ?[facility] Age: 67 YRS ?: 1945 ?Sex:M ?[address] )[id number] ?? Adm Dt: 08/02/2012 ?[place] ??[address] Created: 03/04/2013 ??0026 ?? Pt. Type: D ? Discharge Dt: 01/02/2013 ? Pathologists: Brooklyn Ortiz MD Admit Attend Dr: SPARKLE COLINDRES MD ? GENERAL CHEMISTRY ?Collection Date: ?09/27/12 ? 08/02/12 ?Collection Time: ?1520 ? 1500 ? Ref Range: ?? Units: [0.60-1.30] ??MG/DL ?CREATININE ?0.96 f ? 1.05 f ?09/27/12 1520 eGFR: >70 ml/min/1.73sq.m if non -Albanian. eGFR: >70 ml/min/1.73sq.m if -Albanian. AVE GFR for 60-69 yr. age group: ??85 ml/min/173sq.m Calculated using MDRD Equation FOOTNOTE ADDED ON ?? 09/27/12 ?? AT 1646 BY 999 ?08/02/12 1500 eGFR: >70 ml/min/1.73sq.m if non -Albanian. eGFR: >70 ml/min/1.73sq.m if -Albanian. AVE GFR for 60-69 yr. age group: ??85 ml/min/173sq.m Calculated using MDRD Equation FOOTNOTE ADDED ON ?? 08/02/12 ?? AT 1611 BY 999 Footnotes and Symbols: f = Footnote ?? CONTINUED ?Page: ?? 8 Patient No: [id number] ? [facility] Patient Name: VILLA ALSTON ?[facility] Age: 67 YRS ?: 1945 ?Sex:M ?[address] )[phone] ?? Adm Dt: 08/02/2012 ?[place] ??[id number] Created: 03/04/2013 ??0026 ?? Pt. Type: D ? Discharge Dt: 01/02/2013 ? Pathologists: Brooklyn Ortiz MD Admit Attend : SPARKLE COLINDRES MD ?[facility] ?Collection Date: ?08/02/12 ?Collection Time: ?1500 ? Ref Range: ?? Units: ?ALVAREZ AMBIENT GO @ ? SEE FN f Footnotes and Symbols: f = Footnote @ = ALVARZE AMBIENT GO Performed at ??[facility] [place] ALVAREZ AMBIENT GO 08/02/12 1500 ?HI [...] point mutation causing ? JAK2 V617F (see [facility] Interpretive ? Handbook for method details). ?? [...] Blood specimen (specimen) 12/06/2012 7:56 AM CDT Sparlke Colindres MD LAB BLOOD ORDERABLES Fin al Result Performing Organization Address [facility] de Phone Number HISTORICAL RESULTS * [...] ORDERABLES Fin al Result Performing Organization Address [facility] de Phone Number HISTORICAL RESULTS * [...] ORDERABLES Ziggy dunham Result Performing Organization Address [facility] de Phone Number HISTORICAL RESULTS * [...] RESULTS Comment: eGFR: >70 ml/min/1.73sq.m if non -Albanian. eGFR: >70 ml/min/1.73sq.m if -Albanian. AVE GFR for 60-69 yr. age group: [...] ORDERABLES Ziggy dunham Result Performing Organization Address [facility] de Phone Number HISTORICAL RESULTS * [...] ORDERABLES Fin al Result Performing Organization Address [facility] de Phone Number HISTORICAL RESULTS * (ABNORMAL) Blood cell count (CBC) (09/06/2012 2:38 PM DOCUMENT PROCESSING SPECIALIST) WBC 8.0 4.5 - 10.6 K/cumm HISTORICAL [...] RESULTS Blood specimen (specimen) 09/06/2012 2:38 PM DOCUMENT PROCESSING SPECIALIST Sparkle Colindres MD LAB BLOOD ORDERABLES Fin al Result Performing Organization Address [facility] Co de Phone Number HISTORICAL RESULTS * (ABNORMAL) Blood cell count (CBC) (08/30/2012 7:53 AM DOCUMENT PROCESSING SPECIALIST) WBC 7.0 4.5 - 10.6 K/cumm HISTORICAL [...] RESULTS Blood specimen (specimen) 08/30/2012 7:53 AM DOCUMENT PROCESSING SPECIALIST us Sparkle Colindres MD LAB BLOOD ORDERABLES Fin al Result HISTORICAL RESULTS * (ABNORMAL) Blood cell count (CBC) (08/23/2012 10:34 AM DOCUMENT PROCESSING SPECIALIST) WBC 5.9 4.5 - 10.6 K/cumm HISTORICAL [...] RESULTS Blood specimen (specimen) 08/23/2012 10:34 AM DOCUMENT PROCESSING SPECIALIST Sparkle Colindres MD LAB BLOOD ORDERABLES Fin al Result HISTORICAL RESULTS * (ABNORMAL) Blood cell count (CBC) (08/16/2012 9:53 AM DOCUMENT PROCESSING SPECIALIST) WBC 5.3 4.5 - 10.6 K/cumm HISTORICAL [...] RESULTS Blood specimen (specimen) 08/16/2012 9:53 AM DOCUMENT PROCESSING SPECIALIST Sparkle Colindres MD LAB BLOOD ORDERABLES Fin al Result Performing Organization Address [facility] de Phone Number HISTORICAL RESULTS * (ABNORMAL) Blood cell count (CBC) (08/09/2012 1:59 PM DOCUMENT PROCESSING SPECIALIST) WBC 6.1 4.5 - 10.6 K/cumm HISTORICAL [...] RESULTS Blood specimen (specimen) 08/09/2012 1:59 PM DOCUMENT PROCESSING SPECIALIST Sparkle Colindres MD LAB BLOOD ORDERABLES Ziggy dunham Result Performing Organization Address [facility] de Phone Number HISTORICAL RESULTS * Blood cell count (CBC) (08/02/2012 3:00 PM DOCUMENT PROCESSING SPECIALIST) WBC 7.0 4.0 - 10.5 K/cumm HISTORICAL [...] RESULTS Blood specimen (specimen) 08/02/2012 3:00 PM DOCUMENT PROCESSING SPECIALIST Sparkle Colindres MD LAB BLOOD ORDERABLES Fin al Result Performing Organization Address [facility] de Phone Number HISTORICAL RESULTS * (ABNORMAL) Blood WBC cell morphologic exam, auto (08/02/2012 3:00 PM DOCUMENT PROCESSING SPECIALIST) Lymphocytes 23.2(L) 25.0 - 33.0 % HISTORICAL [...] RESULTS Blood specimen (specimen) 08/02/2012 3:00 PM DOCUMENT PROCESSING SPECIALIST Sparkle Colindres MD LAB BLOOD ORDERABLES Fin al Result Performing Organization Address [facility] de Phone Number HISTORICAL RESULTS * (ABNORMAL) Serum comprehensive metabolic panel (08/02/2012 3:00 PM DOCUMENT PROCESSING SPECIALIST) BUN 15.0 6.0 - 23.0 mg/dl HISTORICAL [...] RESULTS Comment: eGFR: >70 ml/min/1.73sq.m if non -Albanian. eGFR: >70 ml/min/1.73sq.m if -Albanian. AVE GFR for 60-69 yr. age group: [...] Units/L HISTORICAL RESULTS Serum 08/02/2012 3:00 PM DOCUMENT PROCESSING SPECIALIST Sparkle Colindres MD LAB BLOOD ORDERABLES Fin al Result HISTORICAL RESULTS * Referred test, miscellaneous (08/02/2012 9:00 AM DOCUMENT PROCESSING SPECIALIST) Referral specimen, test result SEEFN HISTORICAL RESULTS Miscellaneous 08/02/2012 9:0 0 AM DOCUMENT PROCESSING SPECIALIST Narrative HISTORICAL RESULTS - 08/06/2012 9:11 AM DOCUMENT PROCESSING SPECIALIST GOKEY JAK2B ? HI ? Expected Test ? Result ??LO ??Units ??Values JAK2 V617F Mutation Detection, B ? SEE FN ?Peripheral blood, JAK2 V617F mutation analysis: ?Negative for JAK2 V617F. ?Signing Pathologist: Ford Jack M.D. ?Laboratory developed test. ??Method: ?SEE FN ?JAK2 V617F analysis: Genomic DNA was extracted and a ?quantitative, allele-specific polymerase chain reaction ?(PCR) assay used to evaluate for the point mutation causing ?JAK2 V617F (see [facility] Interpretive ?Handbook for method details). ??Reviewed By: ?Ford Jack M.D. ??HPGDE, DNA Extraction ?Performed ??Interpretation and Report ?Performed us Sparkle Colindres MD LAB BLOOD ORDERABLES Fin al Result HISTORICAL RESULTS documented in this encounter Visit Diagnoses Diagnosis Polycythemia vera (HCC) documented in this encounter Care Teams Brand Specialist Relationship Specialty Start Date End Date Wesley Em MD PCP - General 10/12/12 08/31/16 Wesley Em MD PCP - General 03/11/08 10/11/12 documented as of this encounter
--- OUTSIDE RECORDS SUMMARY | 2024-06-18 19:22 | XMS_ITS | Encounter Summary ---
Author Organization [facility] Facility Care Team Providers Care Brine Tank Separator Operator Name Role Phone Wesley Em MD Primary Care Provider [phone] Encounter Details Date Type Department Care Team (Latest Contact Info) Description 01/12/2011 5:28 AM CDT - 01/15/2011 1:15 PM CDT Hospital Encounter [facility] Wesley Pyle Jr., MD [address] [facility] [address] [place] [address] Osteoarthrosis involving lower leg; Type 2 or [...] file Legal Sex Male 6:00 PM THREAD WINDER Gender Identity Not on file Sexual [...] health documented in this encounter Care Teams Brine Tank Separator Operator Relationship Specialty Start Date End Date Wesley Em MD PCP - General 03/11/08 10/11/12 documented as of this encounter
--- OUTSIDE RECORDS SUMMARY | 2024-06-18 19:22 | XMS_ITS | Encounter Summary ---
Author Organization [facility] Healthcare Address [address] [place] [address] Care Team Providers Care Blow Down Operator Name Role Phone Gene Em MD Primary Care Provider [phone] Encounter Details Date Type Department Care Team (Late st Contact Info) Description 03/13/2013 1:50 PM CDT - 03/13/2013 11:59 PM CDT Hospital Encounter [facility] Gene Lopez MD [address] [place] [address] Microscopic hematuria; Calculus of kidney; Hypertrophy of [...] on file Legal Sex Male 6:00 PM SKILLED HELPER Gender Identity Not on file Sexual [...] 9:[address] IVP Urogram W/WO [id number] ??Acc#: ??[id number] DATE OF EXAM: ??Mar 13 2013 CLINICAL [...] 6. SMALL PERICARDIAL EFFUSION. Interpreting Physician: ??XAVIER TORRES M.D. ??Read on: ??Mar 13 2013 ??3:49P Transcribed by: ??beena ??On: Mar 13 2013 ??5:02P Approved Electronically by: ??XAVIER TORRES M.D. ??on: ??Mar 13 2013 ??9:33P Ordering DR: DR GENE EM Attending DR: DR GENE EM Procedure Note Provider, MD Wilian - 10/22/2016 CT IVP Urogram W/WO [id number] Acc#: [id number] DATE OF EXAM: Mar 13 2013 CLINICAL [...] - 03/15/2013 12:27 AM CDT Patient No: [id number] ? [facility] Patient Name: VILLA ALSTON ?[facility] Healthcare Age: 67 YRS ?: 1945 ?Sex:M ?[address] )[id number] ?? Adm Dt: 03/13/2013 ?[place], [place] ??[address] Created: 03/15/2013 ??0027 ?? Pt. Type: R ? Discharge Dt: 03/13/2013 ? Pathologists: rBooklyn Ortiz MD Admit Attend Dr: GENE EM [...] gangrene documented in this encounter Care Teams Blow Down Operator Relationship Specialty Start Date End Date Gene Em MD PCP - General 10/12/12 08/31/16 documented as of this encounter
--- OUTSIDE RECORDS SUMMARY | 2024-06-18 19:22 | XMS_ITS | Encounter Summary ---
Author Organization [facility] Healthcare Address [address] [place] [address] Care Team Providers Care Orchardist Name Role Phone Unavailable Primary Care Provider Unavailabl e Encounter Details Date Type Department Care Team (Late st Contact Info) Description 07/14/2006 12:01 AM VEHICLE BODY BUILDER - 07/14/2006 11:59 PM VEHICLE BODY BUILDER Hospital Encounter [facility] Wesley Lopez MD [address] [place], [place] [id number] Social History Tobacco Use Types Packs/Day Years Used Date Smoking Tobacco: Never Assessed Sex and Gender Information Value Date Recorded Sex Assigned at Not on file Legal Sex Male 6:00 PM VEHICLE BODY BUILDER Gender Identity Not on file Sexual Orientation Straight 01/23/2021 10 :16 PM CDT documented as of this encounter Plan of Treatment Not on file documented as of this encounter Visit Diagnoses Not on filedocumented in this encounter
--- OUTSIDE RECORDS SUMMARY | 2024-06-18 19:22 | XMS_ITS | Encounter Summary ---
Author Organization [facility] Healthcare Address [address] [place] [address] Care Team Providers Care Political Science Faculty Member Name Role Phone Wesley Em MD Primary Care Provider [phone] Encounter Details Date Type Department Care Team (Late st Contact Info) Description 11/16/2010 12:01 AM CDT - 11/16/2010 11:59 PM CDT Hospital Encounter [facility] CLINCONWesley Vergara MD [address] [place] [address] Dietary counseling and surveillance; Type 2 or unspecified type diabetes mellitus, uncontrolled; Essential hypertension Social History Tobacco Use Types Packs/Day Years Used Date Smoking Tobacco: Never Assessed Sex and Gender Information Value Date Recorded Sex Assigned at Not on file Legal Sex Male 6:00 PM POST DOC FELLOWSHIP Gender Identity Not on file Sexual Orientation [...] hypertension documented in this encounter Care Teams Political Science Faculty Member Relationship Specialty Start Date End Date Wesley Em MD PCP - General 03/11/08 10/11/12 documented as of this encounter
--- OUTSIDE RECORDS SUMMARY | 2024-06-18 19:22 | XMS_ITS | Encounter Summary ---
Author Organization [facility] Healthcare Address [address] [place] [address] Care Team Providers Care Corporate Accounting Manager Name Role Phone Wesley Em MD Primary Care Provider [phone] Encounter Details Date Type Department Care Team (Late st Contact Info) Description 11/04/2010 8:52 AM CDT - 11/04/2010 11:59 PM CDT Hospital Encounter [facility] CLINCONWesley Vergara MD [address] [place] [address] Dietary counseling and surveillance; Type 2 or unspecified type diabetes mellitus, uncontrolled Social History Tobacco Use Types Packs/Day Years Used Date Smoking Tobacco: Never Assessed Sex and Gender Information Value Date Recorded Sex Assigned at Not on file Legal Sex Male 6: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
--- OUTSIDE RECORDS SUMMARY | 2024-06-18 19:22 | XMS_ITS | Encounter Summary ---
Author Organization [facility] Healthcare Address [address] [place] [address] Care Team Providers Care Mortgage Banker Name Role Phone Gene Em MD Primary Care Provider [phone] Encounter Details Date Type Department Care Team (Late st Contact Info) Description 07/12/2012 11:39 AM CITY COMPTROLLER - 07/12/2012 11:59 PM CITY COMPTROLLER Hospital Encounter [facility] Gene Em MD [address] [place] [address] Polycythemia vera (HCC) Social History Tobacco Use Types Packs/Day Years Used Date Smoking Tobacco: Former Alcohol Use Standard Drinks/Week Comments No 0 (1 standard drink = 0.6 oz pur e alcohol) Sex and Gender Information Value Date Recorded Sex Assigned at Not on file Legal Sex Male 6:00 PM CITY COMPTROLLER Gender Identity Not on file Sexual Orientation [...] GAS, OXIMETRY, ARTERIAL Routine 07/12/2012 12:15 PM CITY COMPTROLLER URINALYSIS Routine 07/12/2012 12:00 PM CITY COMPTROLLER SERUM ERYTHROPOIETIN Routine 07/12/2012 6:13 AM CITY COMPTROLLER BLOOD CARBOXYHEMOGLOBIN, VENOUS Routine 07/12/2012 6:13 AM CITY COMPTROLLER DISCHARGE LABORATORY CUMULATIVE REPORT Routine 07/12/2012 12:00 AM CITY COMPTROLLER documented in this encounter Results * (ABNORMAL) Blood gas, oximetry, arterial (07/12/2012 12:15 PM CITY COMPTROLLER) O2, inspired, %/L RA %/L HISTORICAL RESULTS [...] RESULTS Arterial blood 07/12/2012 12 :15 PM CITY COMPTROLLER us Gene Em MD LAB BLOOD ORDERABLES Final Res ult HISTORICAL RESULTS * (ABNORMAL) Urinalysis (07/12/2012 12:00 PM CITY COMPTROLLER) Color, ur YELLOW YELLOW HISTORICAL RESULTS Clarity, [...] HISTORICAL RESULTS Urine 07/12/2012 12:0 0 PM CITY COMPTROLLER Gene Em MD LAB BLOOD ORDERABLES Final Res ult Performing Organization Address [facility] de Phone Number HISTORICAL RESULTS * Blood carboxyhemoglobin, venous (07/12/2012 6:13 AM CITY COMPTROLLER) Cohb, mary 2.8 % HISTORICAL RESULTS Venous blood 07/12/2012 6:13 AM CITY COMPTROLLER Narrative HISTORICAL RESULTS - 07/12/2012 6:42 AM CITY COMPTROLLER NONSMOKERS: ??0.5-1.5% HBCO SMOKERS: ??1-2 PACKS/DAY 4.0-5.0% HBCO ?>2 PACKS/DAY 8.0-9.0% HBCO TOXIC: ??GREATER THAN 20% HBCO LETHAL: ??GREATER THAN 50% HBCO Gene Em MD LAB BLOOD ORDERABLES Final Res ult Performing Organization Address [facility] de Phone Number HISTORICAL RESULTS * (ABNORMAL) Serum erythropoietin (07/12/2012 6:13 AM CITY COMPTROLLER) Erythropoietin 192.0(H) mUnits/ml HISTO RICAL RESULTS Serum 07/12/2012 6:13 AM CITY COMPTROLLER Narrative HISTORICAL RESULTS - 07/13/2012 9:05 AM CITY COMPTROLLER -- REFERENCE VALUE -- 2.6 - 18.5 Gene Em MD LAB BLOOD ORDERABLES Final Res ult Performing Organization Address [facility] Co de Phone Number HISTORICAL RESULTS * Discharge Laboratory Cumulative Report (07/12/2012 12:00 AM CITY COMPTROLLER) 07/12/2012 Narrative HISTORICAL RESULTS - 07/14/2012 2:29 AM CITY COMPTROLLER Patient No: [id number] ? [facility] Patient Name: VILLA ALSTON ?[facility] Age: 66 YRS ?: 1945 ?Sex:M ?[address] )[phone] ?? Adm Dt: 07/12/2012 ?[place], [place] ??[address] Created: 07/14/2012 ??0229 ?? Pt. Type: R [...] ?? CONTINUED ?Page: ?? 1 Patient No: [id number] ? [facility] Patient Name: VILLA ALSTON ?[facility] Age: 66 YRS ?: 1945 ?Sex:M ?[address] )[phone] ?? Adm Dt: 07/12/2012 ?[place] ??[id number] Created: 07/14/2012 ??0229 ?? Pt. Type: R [...] ? NEGATIVE [NEGATIVE] ?U BLOOD ? NEGATIVE ?[facility] ?Collection Date: ?07/12/12 ?Collection Time: ?1213 ? Ref Range: ?? Units: ? mIU/mL ? ERYTHROPOIETIN @ ? 192 Hf Footnotes and Symbols: H = High, * = Abnormal, f = Footnote @ = ERYTHROPOIETIN Performed at ??[place], [place] ERYTHROPOIETIN. 07/12/12 1213 ?? -- REFERENCE VALUE -- ?2.6 - 18.5 ?? END OF CHART ? Page: ?? 2 us Historical Provider MD LAB BLOOD ORDERABLES Iwona l Result HISTORICAL RESULTS documented in this encounter Visit Diagnoses Diagnosis Polycythemia vera (HCC) documented in this encounter Care Teams Mortgage Banker Relationship Specialty Start Date End Date Gene Em MD PCP - General 03/11/08 10/11/12 documented as of this encounter
--- OUTSIDE RECORDS SUMMARY | 2024-06-18 19:22 | XMS_ITS | Encounter Summary ---
Author Organization [facility] Facility Care Team Providers Care Driver Supervisor Name Role Phone Wesley Em MD Primary Care Provider [phone] Encounter Details Date Type Department Care Team (Latest Contact Info) Description 10/05/2010 11:42 AM CDT - 10/05/2010 11:59 PM CDT Hospital Encounter [facility] Wesley Pyle Jr., MD [address] [place] [address] [address] [place] [address] Pre-procedural laboratory examination; Pre-operative cardiovascular examination; Primary localized osteoarthrosis, lower leg Social History Tobacco Use Types Packs/Day Years Used Date Smoking Tobacco: Never Assessed Sex and Gender Information Value Date Recorded Sex Assigned at Not on file Legal Sex Male 6:00 PM GROUP PRESIDENT Gender Identity Not on file Sexual [...] leg documented in this encounter Care Teams Driver Supervisor Relationship Specialty Start Date End Date Wesley Em MD PCP - General 03/11/08 10/11/12 documented as of this encounter
--- OUTSIDE RECORDS SUMMARY | 2024-06-18 19:22 | XMS_ITS | Encounter Summary ---
Author Organization [facility] Healthcare Address [address] [place] [address] Care Team Providers Care Child Care Director Name Role Phone Wesley Em MD Primary Care Provider Encounter Details Date Type Department Care Team (Late st Contact Info) Description 07/26/2006 12:01 AM NEW ORDER CLERK - 07/26/2006 11:59 PM NEW ORDER CLERK Hospital Encounter [facility] Albert Sky MD [address] [place] [address] Social History Tobacco Use Types Packs/Day Years Used Date Smoking Tobacco: Never Assessed Sex and Gender Information Value Date Recorded Sex Assigned at Not on file Legal Sex Male 6:00 PM NEW ORDER CLERK Gender Identity Not on file Sexual Orientation Straight 01/23/2021 10 :16 PM CDT documented as of this encounter Plan of Treatment Not on file documented as of this encounter Visit Diagnoses Not on filedocumented in this encounter Care Teams Child Care Director Relationship Specialty Start Date End Date Wesley Em MD PCP - General 07/18/06 12/04/06 documented as of this encounter
--- OUTSIDE RECORDS SUMMARY | 2024-06-18 19:22 | XMS_ITS | Encounter Summary ---
Author Organization [facility] Healthcare Address [address] [place] [address] Care Team Providers Care Road Supervisor Name Role Phone Wesley Em MD Primary Care Provider [phone] Encounter Details Date Type Department Care Team (Latest Contact Info) Description 09/04/2012 9:10 AM ACTING MANAGER - 09/05/2012 1:18 PM ACTING MANAGER Hospital [place] [address] [place] [address] Coronary atherosclerosis of [place] coronary artery; Other and unspecified angina pectoris; [...] on file Legal Sex Male 6:00 PM ACTING MANAGER Gender Identity Not on file Sexual Orientation Straight 01/23/2021 10 :16 PM CDT documented as of this encounter Last Filed Vital Signs Vital Sign Reading Time Taken Comments Blood Pressure 127/85 09/05/2012 11:34 AM ACTING MANAGER Pulse 73 09/05/2012 11:34 AM ACTING MANAGER Temperature - - Respiratory Rate - - Oxygen Saturation - - Inhaled Oxygen Concentration - - Weight 100.4 kg (221 lb 5.5 oz) 09/05/2012 4:00 AM ACTING MANAGER Height 172.7 cm (5' 7.99 ) 09/04/2012 2:15 PM CS T Body Mass Index 33.66 09/04/2012 2:15 PM ACTING MANAGER documented in this encounter Discharge Summaries * Provider, MD Wilian - 09/04/2012 12:00 AM CST DISCHARGE SUMMARY Patient: VERNA ALSTON Account: [id number] Room No: : 1945 Patient Type: SDS [...] 09/04/2012 12:51 CC: Ras Thakkar F.A.C.C., M.D. Athalia Grinder Chipper [address] [place] [address], [id number] [place] [address] Authenticated by Trista Millan MD On 09/18/2012 [...] HISTORY AND PHYSICAL Patient: VERNA ALSTON Account: [id number] Room No: : 1945 Patient Type: [facility] Attend.: Ras Cagle F.A.C.C.. Admit Date: 09/04/2012 [...] Comments BLOOD GLUCOSE Routine 09/05/2012 12:11 PM ACTING MANAGER BLOOD GLUCOSE Routine 09/05/2012 8:09 AM ACTING MANAGER SERUM BASIC METABOLIC PANEL Routine 09/05/2012 4:28 AM ACTING MANAGER BLOOD WBC CELL MORPHOLOGIC EXAM, AUTO Routine 09/05/2012 4:28 AM ACTING MANAGER BLOOD CELL COUNT (CBC) Routine 3 4:28 AM ACTING MANAGER DISCHARGE LABORATORY CUMULATIVE REPORT Routine 09/05/2012 12:00 AM ACTING MANAGER BLOOD GLUCOSE Routine 09/04/2012 9:16 PM ACTING MANAGER BLOOD GLUCOSE Routine 09/04/2012 5:31 PM ACTING MANAGER LEFT CORONARY ANGIOGRAPHY Routine 2012 12:01 PM ACTING MANAGER BLOOD GLUCOSE Routine 09/04/2012 9:35 AM ACTING MANAGER ELECTROCARDIOGRAPHY (ECG) 09/04/2012 documented in this encounter Results * (ABNORMAL) Blood glucose (09/05/2012 12:11 PM ACTING MANAGER) Glucose, bld 252(H) 70 - 110 mg/dl HISTORICAL RESULTS Blood specimen (specimen) 09/05/2012 12:11 PM ACTING MANAGER Result Judith Millan MD LAB BLOOD ORDERABLES Final Resul t Performing Organization Address City/[facility] Co de Phone Number HISTORICAL RESULTS * (ABNORMAL) Blood glucose (09/05/2012 8:09 AM ACTING MANAGER) Glucose, bld 178(H) 70 - 110 mg/dl HISTORICAL RESULTS Blood specimen (specimen) 09/05/2012 8:09 AM ACTING MANAGER Result Judith Millan MD LAB BLOOD ORDERABLES Final Resul t Performing Organization Address [facility] de Phone Number HISTORICAL RESULTS * (ABNORMAL) Serum basic metabolic panel (09/05/2012 4:28 AM ACTING MANAGER) Pathologist [facility] [place] BUN 13.0 6.0 - 23.0 mg/dl HISTORICAL [...] RESULTS Comment: eGFR: >70 ml/min/1.73sq.m if non -Samoan. eGFR: >70 ml/min/1.73sq.m if -Samoan. AVE GFR for 60-69 yr. age group: ??85 ml/min/173sq.m Calculated using MDRD Equation BUN/creat ratio 13 10 - 20 HIST ORICAL RESULTS A. gap 14 7 - 14 mmol/L HISTORICAL RESULTS Osmo, calc 276(L) 280 - 301 mOsm/kg HISTORICAL RESULTS Calcium 9.0 8.6 - 9.8 mg/dl HISTORICAL RESULTS Serum 09/05/2012 4:28 AM ACTING MANAGER Result Judith Millan MD LAB BLOOD ORDERABLES Final Resul t Performing Organization Address [facility] de Phone Number HISTORICAL RESULTS * (ABNORMAL) Blood cell count (CBC) (09/05/2012 4:28 AM ACTING MANAGER) Pathologist [facility] [place] WBC 12.5(H) 4.0 - 10.5 K/cumm HISTORICAL [...] RESULTS Blood specimen (specimen) 09/05/2012 4:28 AM ACTING MANAGER Trista Millan MD LAB BLOOD ORDERABLES Final Resul t Performing Organization Address [facility] de Phone Number HISTORICAL RESULTS * (ABNORMAL) Blood WBC cell morphologic exam, auto (09/05/2012 4:28 AM ACTING MANAGER) Pathologist [facility] [place] Lymphocytes 10.8(L) 25.0 - 33.0 % HISTORICAL [...] RESULTS Blood specimen (specimen) 09/05/2012 4:28 AM ACTING MANAGER us Trista Millan MD LAB BLOOD ORDERABLES Final Resul t HISTORICAL RESULTS * Discharge Laboratory Cumulative Report (09/05/2012 12:00 AM ACTING MANAGER) 09/05/2012 Narrative HISTORICAL RESULTS - 09/06/2012 12:24 AM ACTING MANAGER Patient No: [id number] ? [facility] Patient Name: VERNA ALSTON ?[facility] Healthcare Age: 66 YRS ?: 1945 ?Sex:M ?[address] )[phone] ?? Adm Dt: 09/04/2012 ?[place], [place] ??[address] Created: 09/06/2012 ??0024 ?? Pt. Type: U [...] ?? CONTINUED ?Page: ?? 1 Patient No: [id number] ? [facility] Patient Name: VERNA ALSTON ?[facility] Age: 66 YRS ?: 1945 ?Sex:M ?[address] )[phone] ?? Adm Dt: 09/04/2012 ?[place], [place] ??[address] Created: 09/06/2012 ??0024 ?? Pt. Type: U [...] ?09/05/12 0428 eGFR: >70 ml/min/1.73sq.m if non -Samoan. eGFR: >70 ml/min/1.73sq.m if -Samoan. AVE GFR for 60-69 yr. age group: ??85 ml/min/173sq.m Calculated using MDRD Equation FOOTNOTE ADDED ON ?? 09/05/12 ?? AT 0524 BY 999 Footnotes and Symbols: L = Low, H = High, f = Footnote ?? CONTINUED ?Page: ?? 2 Patient No: [id number] ? [facility] Patient Name: VERNA ALSTON ?[facility] Healthcare Age: 66 YRS ?: 1945 ?Sex:M ?[address] )[phone] ?? Adm Dt: 09/04/2012 ?[place], [place] ??[address] Created: 09/06/2012 ??0024 ?? Pt. Type: U [...] ORDERABLES Iwona l Result Performing Organization Address [facility] Phone Number HISTORICAL RESULTS * (ABNORMAL) Blood glucose (09/04/2012 9:16 PM ACTING MANAGER) Glucose, bld 169(H) 70 - 110 mg/dl HISTORICAL RESULTS Blood specimen (specimen) 09/04/2012 9:16 PM ACTING MANAGER Trista Millan MD LAB BLOOD ORDERABLES Final Resul t Performing Organization Address [facility] Phone Number HISTORICAL RESULTS * (ABNORMAL) Blood glucose (09/04/2012 5:31 PM ACTING MANAGER) Glucose, bld 195(H) 70 - 110 mg/dl HISTORICAL RESULTS Blood specimen (specimen) 09/04/2012 5:31 PM ACTING MANAGER Trista Millan MD LAB BLOOD ORDERABLES Final Resul t Performing Organization Address [facility] Phone Number HISTORICAL RESULTS * CORONARY ANGIOGRAPHY [id number] (09/04/2012 12:01 PM ACTING MANAGER) Anatomical Region Laterality Modality X-Ray Angiograph y 09/04/2012 12:0 1 PM ACTING MANAGER Narrative 11/22/2012 9:53 PM CDT HEART CATH ??Acc#: ??[id number] DATE OF EXAM: ??Aug ??2012 CLINICAL HISTORY: [...] via the right femoral artery using 5 Norwegian sheath advanced over the wire without difficulty after local anesthesia was applied using 1% Lidocaine. ??Selective coronary angiography was performed using standard 5 Norwegian Manolo catheters. ??Left ventriculography was performed using 5 Norwegian pigtail catheter. ??PTCA technique as described below. [...] femoral artery sheath was upsized to 6 Norwegian sheath and the left coronary was cannulated using 6 Norwegian Voda left 4 guide. ??The patient received [...] right coronary was then cannulated using 6 Norwegian AL 0.75 guide catheter and the lesion [...] site hemostasis was achieved using a 6 Norwegian AngioSeal device without complications. IMPRESSION: 1. SEVERE [...] MD Wilian - 10/22/2016 HEART CATH Acc#: [id number] DATE OF EXAM: Sep 04 2012 CLINICAL [...] obtained via the right femoral arteryusing 5 Norwegian sheath advanced over the wire without difficulty afterlocal anesthesia was applied using 1% Lidocaine. Selective coronaryangiography was performed using standard 5 Norwegian Manolo catheters. Leftventriculography was performed using 5 Norwegian pigtail catheter. PTCAtechnique as described below. FINDINGS: [...] rightfemoral artery sheath was upsized to 6 Norwegian sheath and the left coronarywas cannulated using 6 Norwegian Voda left 4 guide. The patient receivedAngiomax [...] right coronary was then cannulated using 6 Norwegian AL 0.75guide catheter and the lesion was [...] puncturesite hemostasis was achieved using a 6 Norwegian AngioSeal device withoutcomplications. IMPRESSION: 1. SEVERE FOCAL [...] * (ABNORMAL) Blood glucose (09/04/2012 9:35 AM ACTING MANAGER) [facility] Glucose, bld 211(H) 70 - 110 mg/dl HISTORICAL RESULTS Blood specimen (specimen) 09/04/2012 9:35 AM ACTING MANAGER Trista Millan MD LAB BLOOD ORDERABLES Final Resul t HISTORICAL RESULTS * ELECTROCARDIOGRAPHY (ECG) (09/04/2012) Narrative 09/04/2012 Ordered by an unspecified provider. Historical Provider ECG ORDERABLES Final Res ult documented in this encounter Visit Diagnoses Diagnosis Coronary atherosclerosis of [place] coronary artery Other and unspecified angina pectoris Essential hypertension Unspecified essential hypertension Other and unspecified hyperlipidemia Type 2 or unspecified type diabetes mellitus Knee joint replaced by other means Other specified chronic obstructive airways disease Personal history of tobacco use, presenting hazards to health documented in this encounter Care Teams Road Supervisor Relationship Specialty Start Date End Date Wesley Em MD PCP - General 03/11/08 10/11/12 documented as of this encounter
--- OUTSIDE RECORDS SUMMARY | 2024-06-18 19:22 | XMS_ITS | Encounter Summary ---
Author Organization [facility] Healthcare Address [address] [place] [address] Care Team Providers Care Nutrition Teacher Name Role Phone Gene Em MD Primary Care Provider [phone] Encounter Details Date Type Department Care Team (Late st Contact Info) Description 08/20/2012 12:33 PM EDITOR MAP - 08/20/2012 11:59 PM EDITOR MAP Hospital Encounter [facility] CLINCONV Gene Em MD [address] [place] [id number] Essential hypertension Social History Tobacco Use Types Packs/Day Years Used Date Smoking Tobacco: Former Alcohol Use Standard Drinks/Week Comments No 0 (1 standard drink = 0.6 oz pur e alcohol) Sex and Gender Information Value Date Recorded Sex Assigned at Not on file Legal Sex Male 6:00 PM EDITOR MAP Gender Identity Not on file Sexual Orientation [...] Comments RENAL SONOGRAPHY Routine 08/20/2012 1:11 PM EDITOR MAP documented in this encounter Results * RENAL SONOGRAPHY (08/20/2012 1:11 PM EDITOR MAP) Anatomical Region Laterality Modality N/A Ultrasound 08/20/2012 1:11 PM EDITOR MAP Narrative 08/21/2012 10:20 AM EDITOR MAP [facility] Kidney(s) 10059 ??Acc#: ??[id number] DATE OF EXAM: ??Aug 20 2012 CLINICAL [...] Provider, MD Wilian - 10/22/2016 [place] [facility]ney([facility]) [address]26 Acc#: [id number] DATE OF EXAM: Aug 20 2012 CLINICAL [...] hypertension documented in this encounter Care Teams Nutrition Teacher Relationship Specialty Start Date End Date Gene Em MD PCP - General 03/11/08 10/11/12 documented as of this encounter
--- OUTSIDE RECORDS SUMMARY | 2024-06-18 19:32 | XMS_ITS | Clinical Summary ---
Author Organization Unknown Care Team Providers Care Chief Telephone Operator Name Role Phone ARABELLA INTERSTATE, APARNA Unavailable Umu rafi HERRERA RN, MISA Unavailable Unavailabl e DANAE RETAIL CLIENT SOLUTIONS ANALYST, LIDIA Unavailable Unavailable RM PT, ZELDA Unavailable Unavailable REENA BECK TENDER, CRISS Unavailable Unavailabl e CARLOS OT, CHARLI Unavailable Unavailable Payers Payer Name Policy Type Policy Number Effective Date Expira tion Date MEDICARE.[place] [id number] Problems Condition Name Condition Details Condition Category [...] 07-03 00:00: 00 ATHSCL HEART DISEASE OF [place] CORONARY ARTERY W/O ANG PCTRS Active 07-03 00:00: 00 HYPERLIPIDEM IA, UNSPECIFIED Active 07-03 00:00: 00 REPEATED FALLS Active 2023-07 00:00: 00 UNSPECIFIED ATRIAL FIBRILLATION Active 07-03 00:00: 00 TYPE 2 DIABETES MELLITUS WITHOUT COMPLICATION S Active 07-03 00:00: 00 UNSPECIFIED HEARING LOSS, UNSPECIFIED EAR Active 07-03 00:00: 00 OTHER VISUAL DISTURBANCES Active 07-03 00:00: 00 OUTSIDE CUTTER HAND (CURRENT) USE OF ASPIRIN Active 2023-07 00:00: 00 OUTSIDE CUTTER HAND (CURRENT) USE OF ANTICOAGULAN TS Active 2023-07 [...] 12-09 00:00: 00 04-29 23:59 :00 No [id number] CHOLESTEROL 1 tablet DAILY 1 tablet DAILY (route: oral) Med Classific ation: Cardiovas cular Therapy Agents metoprolol tartrate 25 mg tablet 12-09 00:00: 00 12-13 00:00 :00 No [id number] Per instruc tions Per instructio ns (route: oral) Med Classific ation: Cardiovas cular Therapy Agents clopidogrel 75 mg tablet 11-18 00:00: 00 04-29 23:59 :00 No [id number] BLOOD THINNER 1 tablet DAILY 1 tablet DAILY (route: oral) Med Classific ation: Hematolog ical Agents finasteride 5 mg tablet 11-18 00:00: 00 04-29 23:59 :00 No [id number] PROSTATE 1 tablet DAILY 1 tablet DAILY (route: oral) Med Classific ation: Genitouri nary Therapy atorvastati n 40 mg tablet 10-07 00:00: 00 12-13 00:00 :00 No [id number] Per instruc tions Per instructio ns (route: oral) Med Classific ation: Cardiovas cular Therapy Agents atorvastati n 40 mg tablet 10-07 00:00: 00 12-13 00:00 :00 No [id number] Per instruc tions Per instructio ns (route: oral) Med Classific ation: Cardiovas cular Therapy Agents metoprolol succinate ER 50 mg tablet,exte nded release 24 hr 10-07 00:00: 00 12-13 00:00 :00 No [id number] Per instruc tions Per instructio ns (route: oral) Med Classific ation: Cardiovas cular Therapy Agents metoprolol succinate ER 50 mg tablet,exte nded release 24 hr 10-07 00:00: 00 04-29 23:59 :00 No [id number] BLOOD PRESSURE 1 tablet DAILY 1 tablet DAILY (route: oral) Med Classific ation: Cardiovas cular Therapy Agents hydrochloro thiazide 12.5 mg tablet 09-22 00:00: 00 12-13 00:00 :00 No [id number] Per instruc tions Per instructio ns (route: oral) Med Classific ation: Cardiovas cular Therapy Agents metoprolol tartrate 25 mg tablet 09-22 00:00: 00 12-13 00:00 :00 No [id number] Per instruc tions Per instructio ns (route: oral) Med Classific ation: Cardiovas cular Therapy Agents clonidine HCl 0.1 mg tablet 09-20 00:00: 00 12-13 00:00 :00 No [id number] Per instruc tions Per instructio ns (route: oral) Med Classific ation: Cardiovas cular Therapy Agents atorvastati n 80 mg tablet 09-16 00:00: 00 12-13 00:00 :00 No [id number] Per instruc tions Per instructio ns (route: oral) Med Classific ation: Cardiovas cular Therapy Agents clopidogrel 75 mg tablet 09-16 00:00: 00 12-13 00:00 :00 No [id number] Per instruc tions Per instructio ns (route: oral) Med Classific ation: Hematolog ical Agents esomeprazol e magnesium 40 mg capsule,del ayed release 09-16 00:00: 00 12-13 00:00 :00 No [id number] Per instruc tions Per instructio ns (route: oral) Med Classific ation: Gastroint estinal Therapy Agents finasteride 5 mg tablet 3-17 00:00: 00 12-13 00:00 :00 No [id number] Per instruc tions Per instructio ns (route: oral) Med Classific ation: Genitouri nary Therapy Aspirin Low Dose 81 mg tablet,cedric yed release 12-13 00:00: 00 04-29 23:59 :00 No [id number] BLOOD THINNER 1 tablet DAILY 1 tablet DAILY (route: oral) Med Classific ation: Hematolog ical Agents lidocaine 5 % topical patch 12-13 00:00: 00 04-29 23:59 :00 No [id number] PAIN 1 adhesiv e patch, medicat ed EVERY 12 HOURS 1 adhesive patch, medicated EVERY 12 HOURS (route: topical) Med Classific ation: Dermatolo gical oxycodone 5 mg capsule 12-13 00:00: 00 04-29 23:59 :00 No [id number] NEEDED FOR MODERATE PAIN 1 capsule EVERY 8 HOURS 1 capsule EVERY 8 HOURS (route: oral) Med Classific ation: Analgesic , Anti-infl ammatory or Antipyret ic tramadol 50 mg tablet 2023-07 0-12 00:00: 00 05-01 00:00 :00 No [id number] Unavailable Per instruc tions EVERY 6 HOURS NEEDED Per instructio ns EVERY 6 HOURS NEEDED (route: oral) Med Classific ation: Analgesic , Anti-infl ammatory or Antipyret ic amlodipine 5 mg tablet 2023-07 0-03 00:00: 00 Yes [id number] BLOOD PRESSURE 1 tablet DAILY 1 tablet DAILY (route: oral) Med Classific ation: Cardiovas cular Therapy Agents lisinopril 20 mg tablet 2023-07 0-03 00:00: 00 Yes [id number] BLOOD PRESSURE 1 tablet DAILY 1 tablet DAILY (route: oral) Med Classific ation: Cardiovas cular Therapy Agents acetaminoph en 500 mg capsule 2023-07 0- 00:00: 00 Yes [id number] PAIN 2 capsule 2 TIMES DAILY 2 capsule 2 TIMES DAILY (route: oral) Med Classific ation: Analgesic , Anti-infl ammatory or Antipyret ic aspirin 81 mg tablet,cedric yed release 2023-07 00:00: 00 Yes [id number] BLOOD THINNER 1 tablet DAILY 1 tablet DAILY (route: oral) Med Classific ation: Hematolog ical Agents atorvastati n 40 mg tablet 2023-07 00:00: 00 Yes [id number] CHOLESTEROL 1 tablet DAILY 1 tablet DAILY (route: oral) Med Classific ation: Cardiovas cular Therapy Agents docusate sodium 100 mg tablet 2023-07 00:00: 00 Yes [id number] STOOL SOFTNER 1 tablet DAILY 1 tablet DAILY (route: oral) Med Classific ation: Gastroint estinal Therapy Agents finasteride 5 mg tablet 2023-07 00:00: 00 Yes [id number] PROSTATE 1 tablet DAILY 1 tablet DAILY (route: oral) Med Classific ation: Genitouri nary Therapy magnesium 400 mg (as magnesium oxide) tablet 2023-07 00:00: 00 Yes [id number] SUPPLEMENT 1 tablet 2 TIMES DAILY 1 tablet 2 TIMES DAILY (route: oral) Med Classific ation: Electroly te Balance-N utritiona l Products memantine 5 mg tablet 2023-07 00:00: 00 Yes [id number] DEMONSTRATE 1 tablet 2 TIMES DAILY 1 tablet 2 TIMES DAILY (route: oral) Med Classific ation: Cognitive Disorder Therapy omeprazole 20 mg capsule,del ayed release 2023-07 00:00: 00 Yes [id number] HEARTBURN 1 capsule DAILY 1 capsule DAILY (route: oral) Med Classific ation: Gastroint estinal Therapy Agents Xarelto 20 mg tablet 2023-07 00:00: 00 Yes [id number] BLOOD THINNER 1 tablet DAILY 1 tablet [...] PHYSICIANS . RN TO OBSERVE AND ASSESS, RETAIL CLIENT SOLUTIONS ANALYST/UNDER PRESSER TO OBSERVE FOR RISK FOR FALLS AND INSTRUCT IN FALL PREVENTION, HOME SAFETY, MEDICATION MANAGEMENT, INFECTION PREVENTION, AND NUTRITION MANAGEMENT. RN/RETAIL CLIENT SOLUTIONS ANALYST/UNDER PRESSER NURSE MAY PERFORM O2 SATURATION LEVEL ON ADMISSION AND PRN FOR EVERY VISIT FOR RN TO ASSESS/RETAIL CLIENT SOLUTIONS ANALYST TO OBSERVE PATIENT, WITH NOTIFICATION TO THE PHYSICIAN IF SATURATION IS 90% IN THE ABSENCE OF MORE SPECIFIC PARAMETERS FROM THE PHYSICIAN. AGENCY MAY PERFORM A RESUMPTION OF CARE VISIT FOLLOWING ANY HOSPITAL ADMISSION. RN/RETAIL CLIENT SOLUTIONS ANALYST/UNDER PRESSER TO MONITOR CO-MORBID CONDITIONS LISTED ON THE PLAN OF CARE AND ANY NEW CONDITIONS THAT PRESENT THEMSELVES DURING THIS EPISODE TO IDENTIFY CHANGES AND INTERVENE TO MINIMIZE COMPLICATIONS. [code = RN TO OBSERVE, ASSESS, EVALUATE, AND DEVELOP AN INDIVIDUALIZED PLAN OF CARE. AGENCY MAY ACCEPT ORDERS FROM CONSULTING PHYSICIANS . RN TO OBSERVE AND ASSESS, RETAIL CLIENT SOLUTIONS ANALYST/UNDER PRESSER TO OBSERVE FOR RISK FOR FALLS AND INSTRUCT IN FALL PREVENTION, HOME SAFETY, MEDICATION MANAGEMENT, INFECTION PREVENTION, AND NUTRITION MANAGEMENT. RN/RETAIL CLIENT SOLUTIONS ANALYST/UNDER PRESSER NURSE MAY PERFORM O2 SATURATION LEVEL ON ADMISSION AND PRN FOR EVERY VISIT FOR RN TO ASSESS/RETAIL CLIENT SOLUTIONS ANALYST TO OBSERVE PATIENT, WITH NOTIFICATION TO THE PHYSICIAN IF SATURATION IS 90% IN THE ABSENCE OF MORE SPECIFIC PARAMETERS FROM THE PHYSICIAN. AGENCY MAY PERFORM A RESUMPTION OF CARE VISIT FOLLOWING ANY HOSPITAL ADMISSION. RN/RETAIL CLIENT SOLUTIONS ANALYST/UNDER PRESSER TO MONITOR CO-MORBID CONDITIONS LISTED ON THE PLAN OF CARE AND ANY NEW CONDITIONS THAT PRESENT THEMSELVES DURING THIS EPISODE TO IDENTIFY CHANGES AND INTERVENE TO MINIMIZE COMPLICATIONS.] Future Scheduled Test MEDICATION MANAGEMENT; RN/RETAIL CLIENT SOLUTIONS ANALYST/UNDER PRESSER TO REVIEW MEDICATIONS FOR INTERACTIONS, EFFECTIVENESS OF DRUG THERAPY, AND SIGNS/SYMPTOMS OF ADVERSE REACTIONS. MAY INSTRUCT AND REINFORCE MEDICATION TEACHING RELATED TO THE USE OF MEDICATIONS, DOSAGE, FREQUENCY, PURPOSE, SIDE EFFECTS, AND TO REPORT COMPLICATIONS. [code = MEDICATION MANAGEMENT; RN/RETAIL CLIENT SOLUTIONS ANALYST/UNDER PRESSER TO REVIEW MEDICATIONS FOR INTERACTIONS, EFFECTIVENESS OF DRUG THERAPY, AND SIGNS/SYMPTOMS OF ADVERSE REACTIONS. MAY INSTRUCT AND REINFORCE MEDICATION TEACHING RELATED TO THE USE OF MEDICATIONS, DOSAGE, FREQUENCY, PURPOSE, SIDE EFFECTS, AND TO REPORT COMPLICATIONS.] Future Scheduled Test ANTICOAGUL ATION MANAGEMENT; RN TO ASSESS AND TEACH, RETAIL CLIENT SOLUTIONS ANALYST/UNDER PRESSER TO OBSERVE/TEACH/MONITOR EFFECTIVENESS OF ANTICOAGULATION THERAPY. RN/RETAIL CLIENT SOLUTIONS ANALYST/UNDER PRESSER TO INSTRUCT ON SIGNS AND SYMPTOMS OF BLEEDING/ADVERSE REACTIONS TO REPORT TO PHYSICIAN. PATIENT IS PRESCRIBED XARELTO [code = ANTICOAGULATION MANAGEMENT; RN TO ASSESS AND TEACH, RETAIL CLIENT SOLUTIONS ANALYST/UNDER PRESSER TO OBSERVE/TEACH/MONITOR EFFECTIVENESS OF ANTICOAGULATION THERAPY. RN/RETAIL CLIENT SOLUTIONS ANALYST/UNDER PRESSER TO INSTRUCT ON SIGNS AND SYMPTOMS OF BLEEDING/ADVERSE REACTIONS TO REPORT TO PHYSICIAN. PATIENT IS PRESCRIBED XARELTO ] Future Scheduled Test RISK FOR H OSPITALIZATION; RN TO ASSESS/TEACH, UNDER PRESSER/RETAIL CLIENT SOLUTIONS ANALYST TO OBSERVE/TEACH PATIENT/CAREGIVER ON RISK FOR HOSPITALIZATION/EMERGENCY ROOM VISITS, TEACH SIGNS AND SYMPTOMS THAT PUT PATIENT AT RISK, WHEN TO NOTIFY NURSE/PHYSICIAN OF COMPLICATIONS/DECLINE, AND WHEN TO CALL 911. [code = RISK FOR HOSPITALIZATION; RN TO ASSESS/TEACH, UNDER PRESSER/RETAIL CLIENT SOLUTIONS ANALYST TO OBSERVE/TEACH PATIENT/CAREGIVER ON RISK FOR HOSPITALIZATION/EMERGENCY ROOM VISITS, TEACH SIGNS AND SYMPTOMS THAT PUT PATIENT AT RISK, WHEN TO NOTIFY NURSE/PHYSICIAN OF COMPLICATIONS/DECLINE, AND WHEN TO CALL 911.] Future Scheduled Test CARDIOVASC ULAR SYSTEM; RN TO ASSESS/TEACH, RETAIL CLIENT SOLUTIONS ANALYST/UNDER PRESSER TO OBSERVE/TEACH RELATED TO ALTERED CARDIOVASCULAR STATUS TO MINIMIZE COMPLICATIONS AND REDUCE HOSPITALIZATION. [code = CARDIOVASCULAR SYSTEM; RN TO ASSESS/TEACH, RETAIL CLIENT SOLUTIONS ANALYST/UNDER PRESSER TO OBSERVE/TEACH RELATED TO ALTERED CARDIOVASCULAR STATUS TO MINIMIZE COMPLICATIONS AND REDUCE HOSPITALIZATION.] Future Scheduled Test HYPERTENSI ON MANAGEMENT; RN TO ASSESS AND TEACH, RETAIL CLIENT SOLUTIONS ANALYST/UNDER PRESSER TO OBSERVE AND TEACH WARNING SIGNS AND SYMPTOMS TO AVOID HOSPITALIZATION. [code = HYPERTENSION MANAGEMENT; RN TO ASSESS AND TEACH, RETAIL CLIENT SOLUTIONS ANALYST/UNDER PRESSER TO OBSERVE AND TEACH WARNING SIGNS AND SYMPTOMS TO AVOID HOSPITALIZATION.] Future Scheduled Test GENITOURIN LEEROY MANAGEMENT; RN TO ASSESS AND TEACH, RETAIL CLIENT SOLUTIONS ANALYST/UNDER PRESSER TO OBSERVE AND TEACH RELATED TO ALTERED GENITOURINARY STATUS TO MINIMIZE COMPLICATIONS AND REDUCE HOSPITALIZATION. [code = GENITOURINARY MANAGEMENT; RN TO ASSESS AND TEACH, RETAIL CLIENT SOLUTIONS ANALYST/UNDER PRESSER TO OBSERVE AND TEACH RELATED TO ALTERED GENITOURINARY STATUS TO MINIMIZE COMPLICATIONS AND REDUCE HOSPITALIZATION.] Future Scheduled Test URINARY IN CONTINENCE MANAGEMENT; RN TO ASSESS AND TEACH, RETAIL CLIENT SOLUTIONS ANALYST/LVNTO OBSERVE AND TEACH MANAGEMENT OF URINARY INCONTINENCE. TEACH/INSTRUCT ON PREVENTING INFECTION AND SKIN BREAKDOWN. RN/RETAIL CLIENT SOLUTIONS ANALYST/UNDER PRESSER MAY INSTRUCT IN BLADDER TRAINING PROGRAM INDICATED. [code = URINARY INCONTINENCE MANAGEMENT; RN TO ASSESS AND TEACH, RETAIL CLIENT SOLUTIONS ANALYST/LVNTO OBSERVE AND TEACH MANAGEMENT OF URINARY INCONTINENCE. TEACH/INSTRUCT ON PREVENTING INFECTION AND SKIN BREAKDOWN. RN/RETAIL CLIENT SOLUTIONS ANALYST/UNDER PRESSER MAY INSTRUCT IN BLADDER TRAINING PROGRAM INDICATED.] Future Scheduled Test URINARY MO LECULAR TESTING PROTOCOL UP TO 2 PRN RN/RETAIL CLIENT SOLUTIONS ANALYST/UNDER PRESSER VISITS MAY BE PERFORMED FOR S/S OF UTI. RN TO ASSESS, RETAIL CLIENT SOLUTIONS ANALYST/UNDER PRESSER TO OBSERVE INITIATION OF UTI PROTOCOL. RN/UNDER PRESSER/RETAIL CLIENT SOLUTIONS ANALYST TO INSTRUCT PATIENT AND/OR CAREGIVER ON S/S OF UTI TO REPORT TO RN/UNDER PRESSER/RETAIL CLIENT SOLUTIONS ANALYST IF NEW OR WORSENING SYMPTOMS. DRINK PLENTY OF WATER THROUGHOUT THE DAY TO MAINTAIN HYDRATION (UNLESS CONTRAINDICATED.) URINATE WHEN THE URGE IS FELT, DO NOT WAIT. WASH GENITALS DAILY. WIPE FROM FRONT TO BACK AFTER HAVING A BOWEL MOVEMENT. RN/UNDER PRESSER/RETAIL CLIENT SOLUTIONS ANALYST TO OBTAIN MOLECULAR URINE TESTING BY OPTION 1 OR OPTION 2 (OPTION 1) RN/UNDER PRESSER/RETAIL CLIENT SOLUTIONS ANALYST TO OBTAIN U/A WITH REFLEX TO UTI PANEL (MOLECULAR) VIA CLEAN CATCH URINE AND IF UNABLE TO OBTAIN MAY PERFORM AN IN AND OUT CATH. IF PATIENT HAS INDWELLING CATHETER MAY OBTAIN FROM SAMPLING PORT. (OPTION 2) RN/UNDER PRESSER/RETAIL CLIENT SOLUTIONS ANALYST TO OBTAIN UTI PANEL (MOLECULAR) VIA SWAB COLLECTION METHOD FROM ADULT BRIEF/DIAPER OR PAD IF PATIENT IS INCONTINENT. NOTIFY PROVIDER OF RESULTS AND OBTAIN FURTHER ORDERS. [code = URINARY MOLECULAR TESTING PROTOCOL UP TO 2 PRN RN/RETAIL CLIENT SOLUTIONS ANALYST/UNDER PRESSER VISITS MAY BE PERFORMED FOR S/S OF UTI. RN TO ASSESS, RETAIL CLIENT SOLUTIONS ANALYST/UNDER PRESSER TO OBSERVE INITIATION OF UTI PROTOCOL. RN/UNDER PRESSER/RETAIL CLIENT SOLUTIONS ANALYST TO INSTRUCT PATIENT AND/OR CAREGIVER ON S/S OF UTI TO REPORT TO RN/UNDER PRESSER/RETAIL CLIENT SOLUTIONS ANALYST IF NEW OR WORSENING SYMPTOMS. DRINK PLENTY OF WATER THROUGHOUT THE DAY TO MAINTAIN HYDRATION (UNLESS CONTRAINDICATED.) URINATE WHEN THE URGE IS FELT, DO NOT WAIT. WASH GENITALS DAILY. WIPE FROM FRONT TO BACK AFTER HAVING A BOWEL MOVEMENT. RN/UNDER PRESSER/RETAIL CLIENT SOLUTIONS ANALYST TO OBTAIN MOLECULAR URINE TESTING BY OPTION 1 OR OPTION 2 (OPTION 1) RN/UNDER PRESSER/RETAIL CLIENT SOLUTIONS ANALYST TO OBTAIN U/A WITH REFLEX TO UTI PANEL (MOLECULAR) VIA CLEAN CATCH URINE AND IF UNABLE TO OBTAIN MAY PERFORM AN IN AND OUT CATH. IF PATIENT HAS INDWELLING CATHETER MAY OBTAIN FROM SAMPLING PORT. (OPTION 2) RN/UNDER PRESSER/RETAIL CLIENT SOLUTIONS ANALYST TO OBTAIN UTI PANEL (MOLECULAR) VIA SWAB COLLECTION METHOD FROM ADULT BRIEF/DIAPER OR PAD IF PATIENT IS INCONTINENT. NOTIFY PROVIDER OF RESULTS AND OBTAIN FURTHER ORDERS.] Future Scheduled Test FALL REDUC TION MANAGEMENT; RN TO ASSESS AND TEACH, RETAIL CLIENT SOLUTIONS ANALYST/UNDER PRESSER TO OBSERVE AND TEACH ON EDUCATION AND INTERVENTION TO IDENTIFY FALL RISK FACTORS SUCH MEDICATIONS THAT MAY CAUSE DIZZINESS, CHRONIC DISEASES, PSYCHOLOGICAL FACTORS, AND EMPOWER/EDUCATE PATIENT/CAREGIVER TO MINIMIZE FALL RISK. [code = FALL REDUCTION MANAGEMENT; RN TO ASSESS AND TEACH, RETAIL CLIENT SOLUTIONS ANALYST/UNDER PRESSER TO OBSERVE AND TEACH ON EDUCATION AND INTERVENTION TO IDENTIFY FALL RISK FACTORS SUCH MEDICATIONS THAT MAY CAUSE DIZZINESS, CHRONIC DISEASES, PSYCHOLOGICAL FACTORS, AND EMPOWER/EDUCATE PATIENT/CAREGIVER TO MINIMIZE FALL RISK.] Future Scheduled Test DEMENTIA M ANAGEMENT WITHOUT BEHAVIORAL DISTURBANCES; RN TO ASSESS AND TEACH, UNDER PRESSER/RETAIL CLIENT SOLUTIONS ANALYST TO OBSERVE AND TEACH AND TO PROVIDE EDUCATION ON DEMENTIA WITHOUT BEHAVIORAL DISTURBANCES. [code = DEMENTIA MANAGEMENT WITHOUT BEHAVIORAL DISTURBANCES; RN TO ASSESS AND TEACH, UNDER PRESSER/RETAIL CLIENT SOLUTIONS ANALYST TO OBSERVE AND TEACH AND TO PROVIDE [...] MANAG EMENT; RN TO ASSESS AND TEACH, UNDER PRESSER/RETAIL CLIENT SOLUTIONS ANALYST TO OBSERVE AND TEACH AND PROVIDE EDUCATION ON PAIN MANAGEMENT TECHNIQUES. [code = PAIN MANAGEMENT; RN TO ASSESS AND TEACH, UNDER PRESSER/RETAIL CLIENT SOLUTIONS ANALYST TO OBSERVE AND TEACH AND PROVIDE EDUCATION [...] End Date/Time Encounter Type Admission Type Attending [facility] Facility Care Department Encounter ID Discharge Date Discharge Status Discharge Condition Discharge Reason Percent Goals Met 2024-05-01 00:00:00 2024-06-29 00:00:00 Outpatient MISA JUSTIN [facility] [id number] 45.00
== END 2024-06-15 05:37 | disposition home or self-care (01) ==
PROVIDERS: Emergency Provider Registered Nurse; PCP Internal Medicine Interventional Cardiology
DX: S50.02XA Contusion of left elbow, initial encounter (principal); W18.30XA Fall on same level, unspecified, initial encounter; Z91.81 History of falling; G20.A1 Parkinson's disease without dyskinesia, without mention of fluctuations; I48.91 Unspecified atrial fibrillation; Z79.01 Long term (current) use of anticoagulants
CPT/HCPCS: 70450; 73080; 99284